=== PATIENT | male | born 1955 | race Caucasian/White ===

== ENCOUNTER 2024-02-02 07:50 | Outpatient (OUT) | payer MEDICARE, SELFPAY ==
--- NOTE | 2024-02-02 07:56 | ECG_ITS ---
[facility] Test Date: 2024-02-02 Pat Name: Valentin Wong Department: Room: - Gender: Male [employer]: : 1955 Requested By: JANET MUNIZ Order Number: [id number] Reading MD: TRESSA DURANT Measurements Intervals [place] Rate: 66 P: 51 CO: 141 QRS: 0 QRSD: 100 T: -11 QT: 401 QTc: 421 Interpretive Statements SINUS RHYTHM WITH OCCASIONAL VENTRICULAR PREMATURE COMPLEXES Chronic inferolateral ST/T wave changes Compared to ECG 03/21/2023 04:25:02 Ventricular premature complex(es) now present T-wave abnormality unchanged Electronically Signed On 02-02-2024 21:44:25 EDT by TRESSA DURANT
[2024-02-02 08:50] LABS: Basophils Absolute Auto 0.1 10^3/uL (0.0-0.1); Eosinophils Absolute Auto 0.1 10^3/uL (0.0-0.7); Hematocrit 43.7 % (42.0-54.0); Hemoglobin 14.9 g/dL (14.0-18.0); Immature Granulocytes Abs Auto 0.04 10^3/uL (0.00-0.03); Immature Granulocytes Pct Auto 0.8 % (0.0-0.5); Lymphocytes Absolute Auto 0.7 10^3/uL (1.2-3.8); Lymphocytes Percent Auto 14.1 % (20.5-60.0); Mean Corpuscular HGB Conc 34.1 g/dL (29.9-35.2); Mean Corpuscular Hemoglobin 30.5 pg (25.9-34.0); Mean Corpuscular Volume 89.5 fL (80.0-94.0); Mean Platelet Volume 10.2 fL (9.5-13.5); Monocytes Absolute Auto 0.8 10^3/uL (0.3-0.8); Monocytes Percent Auto 14.9 % (1.7-12.0); Neutrophils Absolute Auto 3.5 10^3/uL (1.4-6.5); Neutrophils Percent Auto 68.2 % (43.0-75.0); Platelet Count 175 10^3/uL (150-450); Red Blood Count 4.88 10^6/uL (4.70-6.10); Red Cell Distribution Width 14.1 % (11.0-15.0); White Blood Count 5.2 10^3/uL (4.0-11.0)
[2024-02-02 09:19] LABS: INR 0.98; Prothrombin Time 10.4 sec (9.0-11.6)
[2024-02-02 10:23] LABS: Anion Gap 13.9; Calcium 9.2 mg/dL (8.5-10.1); Chloride 103 mmol/L (98-107); Estimated GFR (African America >60 (>=60); Estimated GFR (Non-African Ame >60 (>=60); Glucose 122 mg/dL (74-106); Potassium 3.9 mmol/L (3.5-5.1); Sodium 137 mmol/L (136-145)
== END 2024-02-02 07:51 | disposition home or self-care (01) ==
LOC: PST 07:51
PROVIDERS: PCP Family Medicine; Visit Provider Urology
DX: Z01.810 Encounter for preprocedural cardiovascular examination (principal); Z01.812 Encounter for preprocedural laboratory examination; N20.0 Calculus of kidney
CPT/HCPCS: 80048; 85025; 85610; 85730; 93005

== ENCOUNTER 2024-02-16 06:53 | Day surgery (SDC) | payer MEDICARE, SELFPAY ==
[2024-02-02 08:12] VITALS: BP 132/82; PULSE 73; RESP 18; TEMP 36.4; O2SAT 96; BMI 32.1
[2024-02-16] VITALS (11 sets, daily range): BP systolic 100–157; BP diastolic 55–83; PULSE 65–79; RESP 10–19; TEMP 36–36.2; O2SAT 93–99; BMI 31.9
--- OUTSIDE RECORDS SUMMARY | 2024-02-16 06:58 | XMS_ITS | CCD ---
Author Organization [facility] Care Team Providers Care Sales And Marketing Director Name Role Phone REBEKAH REED Unavailable Unavailable REBEKAH REED Unavailable Unavailable Herman, DO Caicedo Primary Care Provider [phone] MD Adam Davis Attending Provider Aquilesng, DO Caicedo Primary Care Provider WILLOW Sanchez Attending Provider KARIN Ibrahim Attending Provider Herman, DO Caicedo Primary Care Provider WILLOW Sanchez Attending Provider Herman, DO Caicedo Primary Care Provider [phone] WILLOW Sanchez Attending Provider PAY ., DR FERNANDEZ Admitting Unavailable BALJINDER, DR PRIMO De Oliveira Consulting Unavailable HERMAN, DR SASCHA Candelaria Primary Care Unavailable PAY ., DR FERNANDEZ Attending Unavailable MAGDY .MATT Consulting UnavailSHAIKH Claritza Reveles Attending Unavailable SHAIKH Claritza MULTANI Admitting Unavailable BALJINDER, DR PRIMO De Oliveira Consulting Unavailable HERMAN, DR SASCHA Candelaria Primary Care Unavailable ROBERTA WOOD Consulting Unavailable JOSÉ MIGUEL NOVOA Consulting Unavailable SHAIKH Claritza MULTANI Consulting Unavailable GAVIN MINER Consulting Unavailable Sascha Sutton Unavailable Unavailable Unavailable DO Melanie Trujillo Attending Provider Dr. Alfonso Trujillo Attending Unava ilable Herman, Dr. Sascha Espinoza Primary Care Unava ildonaldo Trujillo, Dr. Alfonso Parham Attending Nikkiva miguel Trujillo, Dr. Alfonso Parham Referring Unava ildonaldo Sutton, Dr. Sascha Espinoza Primary Care Unava ilable Furlong, DO Sascha Primary Care Provider Furlong, DO Sascha Attending Provider MD Edenilson Reinoso Jr Emergency Provider DO Romel Orta Emergency Provider Unavai MD Zac Aguirre Attending Provider [phone] WILLOW Sanchez Attending Provider MD Zac Muniz Referring Provider SASCHA SUTTON Primary Care Physician Furlong, DO Sascha Primary Care Provider MD Zac Muniz Attending Provider Furlong, DO Sascha Primary Care Provider MD Zac Muniz Attending Provider Furlong, DO Sascha Primary Care Provider MD Romel Davis Attending Provider Furlong, DO Sascha Primary Care Provider MD Zac Muniz Attending Provider MD Romel Davis Attending Provider Furlong, DO Sascha Primary Care Provider MD Romel Davis Attending Provider MD Zac Muniz Attending Provider [phone] Furgeneng Sascha FERRELL Primary Care Provider Furlong, DO Sascha Primary Care Provider MD Romel Davis Attending Provider Furlong, DO Sascha Attending Provider SASCHA SUTTON Attending Unavailable HERMAN, SASCHA G Referring Unavailable FURLONG, SASCHA G Primary Care Unavailable FURLONG, SASCHA G Referring Unavailable FURLONG, SASCHA G Primary Care Unavailable Unavailable Primary Care Provider UnavailZAIRA Phillips Attending Unavailable Furlong Sascha ONEAL Primary Care Provider WILLOW Hernandez Attending Provider Мария Hernandez Unavailable MD Edenilson Reinoso Jr Emergency Provider Zac Muniz Attending Unavailable Furlong, Sascha Primary Care Unavailable Muniz, Zac Admitting Unavailable Davis, Romel Admitting Unavailable Davis, Romel Attending Unavailable Furlong, Sascha Primary Care Unavailable Furlong, Sascha Primary Care Unavailable Ryan, Romel Attending Unavailable Romel Davis Admitting Unavailable Edenilsno Reinoso Jr Admitting Unavailable Edenilson Reinoso Jr Attending Unavailable Furlong, Sascha Primary Care Unavailable Мария Hernandez Attending Unavailable Furlong, Sascha Primary Care Unavailable Мария Hernandez Admitting Unavailable Muniz, Zac Attending Unavailable Muniz, Zac Admitting Unavailable Furlong, Sascha Primary Care Unavailable Furlong, Sascha Primary Care Unavailable Muniz, Zac Attending Unavailable Muniz, Zac Admitting Unavailable Obermeyer, Christine L Admitting Unavailable Obermeyer, Christine L Attending Unavailable Muniz, Zac Referring Unavailable Furlong, Sascha Primary Care Unavailable Furlong, Sascha Admitting Unavailable Furlong, Sascha Attending Unavailable Furlong, Sascha Primary Care Unavailable Muniz, Zac Attending Unavailable Furlong, Sascha Primary Care Unavailable Muniz, Zac Admitting Unavailable Obermeyer, Christine L Attending Unavailable Obermeyer, Christine L Admitting Unavailable Furlong, Sascha Primary Care Unavailable Furlong, Sascha Admitting Unavailable Furlong, Sascha Attending Unavailable Furlong, Sascha Primary Care Unavailable Muniz, Zac Attending Unavailable Furlong, Sascha Primary Care Unavailable Muniz, Zac Admitting Unavailable Muniz, Zac Attending Unavailable Furlong, Sascha Primary Care Unavailable Muniz, Zac Admitting Unavailable Melanie Trujillo Admitting Unavailable Melanie Trujillo Attending Unavailable Furlong, Sascha Primary Care Unavailable Davis, Romel Attending Unavailable DavisRomel Admitting Unavailable Furlong, Sascha Primary Care Unavailable Furlong, Sascha Attending Unavailable Furlong, Sascha Admitting Unavailable Furlong, Sascha Primary Care Unavailable Мария Hernandez Admitting Unavailable Мария Hernandez Attending Unavailable Furlong, Sascha Primary Care Unavailable Furlong, Sascha Primary Care Unavailable Melanie Trujillo Attending Unavailable Melanie Trujillo Admitting Unavailable Edenilson Reinoso Jr Attending Unavailable Furlong, Sascha Primary Care Unavailable Edenilson Reinoso Jr Admitting Unavailable Romel Orta Attending Unavailable Furlong, Sascha Primary Care Unavailable Romel Orta Admitting Unavailable FURLONG, SASCHA G Referring Unavailable FURLONG, SASCHA G Primary Care Unavailable FURLONG, SASCHA G Referring Unavailable FURLONG, SASCHA G Primary Care Unavailable FURLONG, SASCHA G Referring Unavailable FURLONG, SASCHA G Primary Care Unavailable FLAVIO, Zac De Oliveira Attending Unavailable MUNIZ, Zac R Admitting Unavailable MUNIZ, Zac R Attending Unavailable MUNIZ, Zac R Attending Unavailable MUNIZ, Zac R Attending Unavailable MUNIZ, Zac R Attending Unavailable MUNIZ, Zac R Attending Unavailable MUNIZ, Zac R Attending Unavailable MUNIZ, Zac R Attending Unavailable Furlong, DO Sascha Primary Care Provider [phone] MD Romel Davis Attending Provider Herman, DO Caicedo Attending Provider WILLOW Hernandez Attending Provider MD Edenilson Reinoso Jr Emergency Provider MD Zac Muniz Attending Provider [phone] Allergies Allergy Classification Reported Allergen(s) Allergy Type Date of Onset Reaction(s) Facility (20 sources) cephalexin; Translations: [CEPHALEXIN] Drug Allergy 04-25-20 18 Unknown (qualifier value) [facility] Repository (20 sources) oxyCODONE; Translations: [OXYCODONE] Drug Allergy 04-25-20 18 Hallucinations (finding), Hallucinations [facility] Repository (20 sources) Sulfonamides (Antibiotic); Translations: [SULFA (SULFONAMIDE ANTIBIOTICS)] Propensity to adverse reactions to drug (disorder) 05-20-20 14 Other (See Comments) [facility] [place] [facility] (2 sources) ASPIRIN, BUFFERED; Translations: [ASPIRIN, BUFFERED] Propensity to adverse reactions to drug (disorder) 04-25-20 18 [facility] Other [place] Repository (20 sources) Calcium Carbonate; Translations: [calcium carbonate] Drug Allergy 07-19-20 19 GI intolerance [facility] (20 sources) Cephalosporins (Antibiotic); Translations: [Cephalosporins] Allergy to substance 05-20-20 14 Other (See Comments) [facility] (20 sources) Magnesium; Translations: [magnesium] Drug Allergy 07-19-20 19 GI intolerance [facility] (1 source) Sulfonamides (Antibiotic) Drug allergy (disorder) [facility] Repository (4 sources) Sulfamethoxazole; Translations: [sulfa] Drug Allergy Unknown [place] [id number] DO Work Phone: (6 sources) Sulfonamides (Antibiotic); Translations: [sulfa drugs] Drug allergy Unknown (qualifier value) [facility] (4 sources) Aspirin,Buffd-Willow cium Carb-Mag; Translations: [ASPIRIN,BUFFD-CA LCIUM CARB-MAG] Propensity to adverse reactions to drug 09-29-20 22 Vomiting [facility] [employer] (1 source) Aspirin Drug Allergy 10-13-20 15 [facility] [employer] (1 source) Sulfonamides (Antibiotic) Drug Allergy 05-20-20 14 Rash [facility] [employer] (1 source) Aspirin Drug Allergy Unknown [employer] Other (1 source) Sulfacetamide in [place] Drug allergy Unknown [facility] [employer] Other Medications Current Medications Medication Drug Class(es) Dates Sig (Normalized) Sig (Original) acetaminophen 500 mg oral tablet (20 sources) Start: 05-09-2023 take 1 mg by mouth every six hours acetaminophen 500 mg Tab mg tab(s), Oral, q6hr, Refills(s) 0 Start Date: 05/09/23 Status: Ordered Start: 05-09-2023 take 2 tablets by mo ut three times daily as needed for pain acetaminophen (TYLENOL EXTRA STRENGTH) 500 mg tablet Take 2 tablets (1,000 mg total) by mouth 3 (three) times a day as needed for pain. 0 05/09/2023 Active Start: 03-31-2023 take 1000 mg by mout h once daily Acetaminophen Active 1000 MG PO Daily March 31, 2023 12:00am Start: 11-05-2018 End: 07-24-2019 take 500 mg by mouth three times daily Acetaminophen Discontinued 500 MG PO Three times daily November 05, 2018 1:00am July 24, 2019 3:26pm take 1 tablet by christopher th every eight hours Acetaminophen Extra Strength 500 MG 1 tablet as needed Orally 3 times a day Active Tylenol 500 MG C APS 2 caps 2-3 times daily Quantity: 0 Refills: 0 Ordered: 30-Mar-2023 DO Active acetaminophen 325 mg / HYDROcodone bitartrate 5 mg oral tablet (20 sources) Opioid Agonist Start: 05-03-2023 End: 01-03-2024 take 1 tablet by mouth every six hours Hydrocodone-Acetaminophen Active 1 - 2 TAB PO Q6H 15 January 03, 2024 Start: 05-12-2019 End: 07-19-2019 take 1 tablet by mouth once daily at bedtime Hydrocodone-Acetaminophen (Marathon) 5-325 mg tablet Discontinued 1 TAB PO Daily at bedtime 14 May 12, 2019 July 19, 2019 10:35am Start: 04-25-2018 End: 11-05-2018 take 1 tablet by mouth every four to six hours Hydrocodone-Acetaminophen (Marathon) 5-325 mg tablet Discontinued 1 - 2 TAB PO EVERY 4-6 HOURS May 16, 2018 November 05, 2018 1:25pm aspirin 81 mg oral capsule (20 sources) Platelet Aggregation Inhibitor, Nonsteroidal Anti-inflammatory Drug Start: 09-19-2023 take 1 mg by mouth every twenty-four hours aspirin 81 mg oral capsule mg cap(s), Oral, q24hr, Refills(s) 0 Start Date: 09/19/23 Status: Ordered Start: 05-09-2023 take 1 mg by mouth e very four hours aspirin 325 mg oral capsule mg cap(s), Oral, q4hr, Refills(s) 0 Start Date: 05/09/23 Status: Ordered Start: 07-19-2019 End: 04-04-2023 take 325 mg by mouth once daily in the morning Aspirin Discontinued 325 MG PO Every morning July 19, 2019 12:00am April 04, 2023 1:11pm Start: 11-05-2018 End: 11-05-2018 take 1 tablet by mouth once daily Aspirin (Aspir-81) 81 mg Tablet,Delayed Release (Dr/Ec) Discontinued 325 MG PO Daily November 05, 2018 1:00am November 05, 2018 1:25pm B Complex Vitamins (vitamin B complex) tablet (1 source) B Complex Vitami ns (vitamin B complex) tablet as directed Orally 0 Active budesonide 0.032 mg/actuat metered dose nasal spray (2 sources) Corticosteroid budesonide (Rhin ocort AQ) 32 MCG/ACT nasal spray 62,500 sprays 0 Active budesonide (GUSTAVO KEYLA AQUA) 32 mcg/actuation nasal spray 62,500 sprays. 0 Active carboxymethylcellulose 0.01 mg/mg ophthalmic gel (10 sources) Start: 03-31-2023 apply 1 drop(s) into the eye(s) once daily Carboxymethylcellulose Sodium (Refresh Liquigel) 1 % Drops, Liquid Gel Active 1 DROPS EYE-BOTH Daily March 31, 2023 12:00am Carboxymethylcellulose Sodium (Refresh Liquigel) 1 % Drops, Liquid Gel (7 sources) Start: 03-31-2023 apply 1 drop(s) into the eye(s) once daily Carboxymethylcellulose Sodium (Refresh Liquigel) 1 % Drops, Liquid Gel Active 1 DROPS EYE-BOTH Daily March 31, 2023 12:00am colchicine 0.6 mg oral tablet (5 sources) Start: 01-18-2024 take 1 mg by mouth once daily colchicine 0.6 mg Tab mg tab(s), Oral, Daily Start Date: 01/18/24 Status: Ordered Start: 12-19-2023 colchicine 0.6 MG tablet Start: 09-30-2023 take 1 capsule by [facility] in the morning colchicine (MITIGARE) 0.6 mg capsule Take 1 capsule (0.6 mg total) by mouth in the morning. 0 09/30/2023 Active Colchicine 0.6 M G 5 mL Orally Active fexofenadine (5 sources) Histamine-1 Receptor Antagonist Start: 05-09-2023 Seema D OTC 24HR Oral, Daily, Refill(s) 0 Start Date: 05/09/23 Status: Ordered fexofenadine / Pseudoephedrine (17 sources) alpha-Adrenergic Agonist, Histamine-1 Receptor Antagonist Start: 03-31-2023 take 1 tablet by mouth once daily, then take 1 tablet by mouth every twenty-four hours Fexofenadine-Ps eudoephedrine (Seema-D 24 Hour) 180-240 mg Tablet Extended Release 24 Hr Active 1 TAB PO Daily March 30, 2023 11:00pm Start: 03-31-2023 take 1 tablet by christopher th once daily, then take 1 tablet by mouth every twenty-four hours Fexofenadine-Pseudoephedrine (Seema-D 24 Hour) 180-240 mg Tablet Extended Release 24 Hr Active 1 TAB PO Daily March 31, 2023 12:00am folic acid 1 mg oral tablet (20 sources) Start: 05-09-2023 take 1 tablet by mouth once daily folic acid 1 mg Tab mg tab(s), Oral, Daily, Refills(s) 0 Start Date: 05/09/23 Status: Ordered Start: 04-25-2018 take 1-2 mg by mouth twice britany ly Folic Acid Active 1 - 2 MG PO Twice daily April 25, 2018 12:00am Start: 04-25-2018 take 1-2 mg by mouth once baldomero y Folic Acid Active 1 - 2 MG PO Daily April 25, 2018 12:00am 12 hr guaiFENesin 600 mg / pseudoephedrine hydrochloride 60 mg extended release oral tablet (1 source) alpha-Adrenergic Agonist pseudoephedrine-guai FENesin (MUCINEX D) 60-600 mg per 12 hr tablet hydroCHLOROthiazide 12.5 mg / lisinopril 20 mg oral tablet (20 sources) Thiazide Diuretic, Angiotensin Converting Enzyme Inhibitor Start : 09-19 hydrochlorothiazide-lisinopr il 12.5 mg-20 mg Tab Refill(s) 0 Start Date: 09/19/23 Status: Ordered Start: 05-12-2019 take 1 tablet by christopher th once daily in the morning Lisinopril-Hydrochlorothiazide Active 1 TAB PO Every morning May 12, 2019 12:00am hydroxychloroquine sulfate 200 mg oral tablet (20 sources) Antimalarial, Antirheumatic Agent Start: 05-09-2023 take 1 mg by mouth once daily hydroxychloroquine 200 mg Tab mg tab(s), Oral, Daily, Refills(s) 0 Start Date: 05/09/23 Status: Ordered Start: 04-25-2018 take 200 mg by mouth twice daily Hydroxychloroquine Active 200 MG PO Twice daily April 25, 2018 12:00am leflunomide 10 mg oral tablet (20 sources) Antirheumatic Agent Start: 04-25-2018 take 10 mg by mouth once daily in the morning Leflunomide Active 10 MG PO Every morning April 25, 2018 12:00am leucovorin 5 mg oral tablet (20 sources) Folate Analog Start: 04-25-2018 take 5 mg by mouth every week Leucovorin Calcium Active 5 MG PO every week April 25, 2018 12:00am taken on sundays levoFLOXacin 500 mg oral tablet (4 sources) Quinolone Antimicrobial Start: 01-03-2024 take 500 mg by mouth once daily Levofloxacin Active 500 MG PO Daily 03 25January 03, 2024 1:00am lisinopril 20 mg oral tablet (20 sources) Angiotensin Converting Enzyme Inhibitor Start: 05-09-2023 take 1 mg by mouth once daily lisinopril 20 mg Tab mg tab(s), Oral, Daily, Refills(s) 0 Start Date: 05/09/23 Status: Ordered Start: 04-25-2018 End: 05-12-2019 take 20 mg by mouth once daily Lisinopril Discontinued 20 MG PO Daily April 25, 2018 12:00am May 12, 2019 2:29am loratadine 10 mg oral tablet (1 source) Start: 03-28-2023 take 1 tablet by mouth in the morning loratadine (CLARITIN) 10 mg tablet Indications: Allergic rhinitis Take 1 tablet (10 mg total) by mouth in the morning. 30 tablet 0 03/28/2023 Active methotrexate 1000 mg injection (20 sources) Folate Analog Metabolic Inhibitor Start: 05-09-2023 inject 1 mg intravenously once methotrexate 1 g injection mg/m2, IV, Once, Refills(s) 0 Start Date: 05/09/23 Status: Ordered Start: 05-09-2023 inject 1 mg intravenously once methotrexate 1 g injection mg/m2, IV, Once, Refills(s) 0 Start Date: 05/09/23 Status: Ordered Start: 11-05-2018 inject 25 mg by subc utaneous injection every week Methotrexate Sodium Active 25 MG SUBCUT every week November 05, 2018 1:00am taken on saturdays Methotrexate 2.5 MG 1 needle Orally once a week *please review for potential _update for e-prescription and drug interaction check* Active methotrexate, PF , 25 mg/mL chemo syringe methotrexate sodium (PF) 25 mg/mL injection solution 0 Active Methotrexate Sod ium 1 GM Injection Solution Reconstituted USE DIRECTED. Quantity: 0 Refills: 0 Ordered: 30-Mar-2023 DO Active methylPREDNISolone 4 mg oral tablet (20 sources) Corticosteroid Start: 05-09-2023 Medrol 4 mg Ta b Refills(s) 0 Start Date: 05/09/23 Status: Ordered Start: 11-05-2018 End: 07-24-2019 take 1 tablet by mouth once Methylprednisolone (Medrol (Nicolas)) 4 mg tablets,dose pack Discontinued 1 dose pk PO per package directions July 19, 2019 10:35am July 24, 2019 3:25pm Medrol (Nicolas) 4 M G TABS USE DIRECTED. Quantity: 0 Refills: 0 Ordered: 30-Mar-2023 DO Active montelukast 10 mg oral tablet (20 sources) Leukotriene Receptor Antagonist Start: 04-25-2018 take 10 mg by mouth once daily in the evening Montelukast Active 10 MG PO Every evening April 25, 2018 12:00am nabumetone 750 mg oral tablet (20 sources) Nonsteroidal Anti-inflammatory Drug Start: 05-09-2023 take 1 mg by mouth once daily nabumetone 750 mg Tab mg tab(s), Oral, Daily, Refills(s) 0 Start Date: 05/09/23 Status: Ordered Start: 04-25-2018 take 750 mg by mouth twice britany ly Nabumetone Active 750 MG PO Twice daily April 25, 2018 12:00am take 1 tablet by christopher th every twelve hours Nabumetone 750 MG Oral Tablet TAKE 1 TABLET EVERY 12 HOURS. Quantity: 0 Refills: 0 Ordered: 30-Mar-2023 DO Active nitroglycerin 0.4 mg sublingual tablet (20 sources) Nitrate Vasodilator Start: 03-31-2023 take 0.4 mg under the tongue once daily Nitroglycerin Active 0.4 MG SUBLINGUAL Daily March 31, 2023 12:00am Start: 03-30-2023 Nitroglycerin 0.4 MG Sublingual Tablet Sublingual PLACE 1 TABLET UNDER THE TONGUE EVERY 5 MINUTES FOR UP TO 3 DOSES NEEDED FOR CHEST PAIN.CALL 911 IF PAIN PERSISTS. Quantity: 1 Refills: 0 Ordered: 30-Mar-2023 Alfonso Trujillo DO Start : 30-Mar-2023 Active new start omeprazole 40 mg delayed release oral capsule (20 sources) Proton Pump Inhibitor Start: 10-23-2022 take 1 mg by mouth once daily omeprazole 40 mg Cap-DR mg cap(s), Oral, Daily, Refills(s) 0 Start Date: 05/09/23 Status: Ordered Start: 04-25-2018 take 40 mg by mouth once daily in the morning Omeprazole Active 40 MG PO Every morning April 25, 2018 12:00am Start: 04-25-2018 take 20 mg by mouth twice baldomero y Omeprazole Active 20 MG PO Twice daily April 25, 2018 12:00am take 1 capsule by mo uth every twelve hours Omeprazole 40 MG 1 capsule Orally bid Active ondansetron 4 mg disintegrating oral tablet (20 sources) Serotonin-3 Receptor Antagonist Start: 05-03-2023 End: 01-03-2024 take 4 mg by mouth every eight hours Ondansetron Active 4 MG PO Q8H January 03, 2024 4:25am Start: 04-25-2018 End: 11-05-2018 Ondansetron (Zofran Odt) 4 m g Tablet,Disintegrating Discontinued 4 MG PO EVERY 8-12 HOURS April 25, 2018 12:00am November 05, 2018 1:20pm potassium bicarbonate 25 meq effervescent oral tablet (2 sources) Start: 12-14-2023 take 1 tablet by mouth in the morning KLOR-CON/EF 25 mEq disintegrating tablet Take 1 tablet (25 mEq total) by mouth in the morning and 1 tablet (25 mEq total) before bedtime. 0 12/14/2023 Active Potassium Chloride (1 source) Klor-Con 10 Acti ve prednisoLONE (20 sources) Corticosteroid Start: 05-09-2023 prednisoLONE O ral, Daily, Refills(s) 0 Start Date: 05/09/23 Status: Ordered Start: 11-05-2018 End: 07-24-2019 Prednisolone Acetate Discont inued 1 DROPS OPHTHALMIC As Directed November 05, 2018 1:00am July 24, 2019 3:25pm taper as directed/ Right Eye take 2 drop(s) into the eye(s) four times daily as needed Pred Forte 1 % 2 drops into affected eye Ophthalmic Four times a day PRN Active prednisoLONE Raúl yañez P-F 1 % Ophthalmic Suspension as directed Quantity: 0 Refills: 0 Ordered: 30-Mar-2023 DO Active Refresh Dry Eye Therapy (5 sources) Start: 05-09-2023 Refresh Dry Ey e Therapy Eye-Both, QID, Refill(s) 0 Start Date: 05/09/23 Status: Ordered simvastatin 20 mg oral tablet (20 sources) HMG-CoA Reductase Inhibitor Start: 07-19-2019 take 20 mg by mouth once daily in the evening Simvastatin Active 20 MG PO Every evening July 19, 2019 12:00am Start: 04-25-2018 End: 07-19-2019 take 10 mg by mouth once daily Simvastatin Discontinue d 10 MG PO Daily April 25, 2018 12:00am July 19, 2019 10:31am tamsulosin hydrochloride 0.4 mg oral capsule (20 sources) alpha-Adrenergic Carlos Start: 01-03-2024 End: 02-02-2024 take 1 capsule by mouth twice daily Flomax 0.4 mg Cap 0.4 mg = 1 cap(s), Oral, BID, X 30 day(s), # 60 cap(s), Refills(s) 0, Pharmacy: [facility]/pharmacy #[id number], 173, cm, 09/19/23 9:41:00 EDT, Height/Length Dosing, 97.5, kg, 09/19/23 9:41:00 EDT, Weight Dosing Start Date: 01/03/24 Stop Date: 02/02/24 Status: Ordered Start: 05-09-2023 End: 06-08-2023 take 1 capsule by mouth twice daily Flomax 0.4 mg Cap 0.4 mg = 1 cap(s), Oral, BID, X 30 day(s), # 60 cap(s), Refills(s) 0, Pharmacy: [facility] [id number], 173, cm, 05/09/23 16:02:00 EDT, Height/Length Dosing, 97.5, kg, 05/09/23 16:02:00 EDT, Weight Dosing Start Date: 05/09/23 Stop Date: 06/08/23 Status: Ordered Start: 05-03-2023 End: 01-03-2024 Tamsulosin (Flomax) 0.4 mg c apsule Active 0.4 MG PO Daily January 03, 2024 4:25am administer 30 minutes after same meal each day until stone passes Start: 04-25-2018 End: 11-05-2018 take 1 capsule by mouth once daily Tamsulosin (Flomax) 0.4 mg Capsule,Extended Release 24hr Discontinued 0.4 MG PO Daily April 25, 2018 12:00am November 05, 2018 1:21pm traMADol hydrochloride 50 mg oral tablet (20 sources) Opioid Agonist Start: 05-09-2023 take 1 mg by mouth every six hours traMADOL 50 mg Tab mg tab(s), Oral, q6hr, Refills(s) 0 Start Date: 05/09/23 Status: Ordered Start: 11-05-2018 End: 07-26-2019 take 100 mg by mouth every eight hours Tramadol Active 100 MG PO Q8H 0 July 26, 2019 7:13am take 1 tablet by christopher th every twelve hours as needed traMADol HCl - 50 MG Oral Tablet TAKE 1 TABLET EVERY 12 HOURS NEEDED. Quantity: 0 Refills: 0 Ordered: 30-Mar-2023 DO Active triamcinolone acetonide 0.055 mg/actuat metered dose nasal spray (19 sources) Corticosteroid Start: 03-31-2023 Triamcinolone Acetonide (Nasal Allergy) 55 mcg Aerosol,[place] Active 1 SPRAY INTRANASAL Daily March 31, 2023 12:00am Start: 03-31-2018 Kenalog -40 mg March, 10 mg Completed/Discontinued Medications Medication Drug Class(es) Dates Sig (Normalized) Sig (Original) chlorhexidine gluconate 40 mg/ml medicated liquid soap (1 source) Hibiclens 4 % Externally Not-Taking/PRN cyclobenzaprine hydrochloride 10 mg oral tablet (20 sources) Muscle Relaxant Start: 05-12-2019 End: 07-26-2019 take 10 mg by mouth three times daily Cyclobenzaprine Discontinued 10 MG PO Three times daily May 12, 2019 12:00am July 26, 2019 8:09am diazePAM 5 mg oral tablet (20 sources) Benzodiazepine Start: 07-26-2019 End: 03-31-2023 take 5 mg by mouth four times daily Diazepam Discontinued 5 MG PO Four times daily 30 10 July 26, 2019 12:00am March 31, 2023 8:41am doxycycline hyclate 100 mg oral tablet (20 sources) Tetracycline-class Drug Start: 05-16-2018 End: 11-05-2018 take 100 mg by mouth twice daily Doxycycline Hyclate Discontinued 100 MG PO Twice daily 10 July 10, 2018 12:00am November 05, 2018 1:17pm Effervescent Potassium 25 mEq oral tablet (3 sources) Start: 09-19-2023 End: 09-13-2024 take 1 tablet by mouth twice daily Effervescent Potassium 25 mEq oral tablet 25 mEq = 1 tab(s), Oral, BID, X 90 day(s), # 180 tab(s), Refills(s) 3, Pharmacy: [facility]/pharmacy #[id number], 173, cm, 09/19/23 9:41:00 EDT, Height/Length Dosing, 97.5, kg, 09/19/23 9:41:00 EDT, Weight Dosing Start Date: 09/19/23 Stop Date: 09/13/24 Status: Ordered Fluocinolone Cream & Emollient 0.025 % (1 source) Fluocinolone Cre am & Emollient 0.025 % Externally *please review for potential _update for e-prescription and drug interaction check* Not-Taking/PRN fluticasone propionate 0.093 mg/actuat metered dose nasal spray (20 sources) Corticosteroid Start: 07-19-2019 End: 03-31-2023 take 1 spray(s) nasal route once daily Fluticasone Propionate Discontinued 1 SPRAY INTRANASAL Daily July 19, 2019 12:00am March 31, 2023 8:40am Left nostril only Hexachlorophene (1 source) Phisohex *please review for potential _update for e-prescription and drug interaction check* Not-Taking/PRN HYDROmorphone hydrochloride 4 mg oral tablet (20 sources) Opioid Agonist Start: 04-29-2018 End: 11-05-2018 take 1 tablet by mouth every six hours Hydromorphone (Dilaudid) 4 mg tablet Discontinued 4 MG PO Q6H April 29, 2018 November 05, 2018 1:25pm ketorolac tromethamine 10 mg oral tablet (5 sources) Nonsteroidal Anti-inflammatory Drug, Cyclooxygenase Inhibitor Start: 05-09-2023 take 1 tablet by mouth twice daily as needed for pain ketorolac 10 mg Tab 10 mg = 1 tab(s), Oral, BID, PRN for pain, Take one tab by mouth up to twice daily for pain., # 30 tab(s), Refills(s) 0, Pharmacy: [facility] [id number], 173, cm, 05/09/23 16:02:00 EDT, Height/Length Dosing, 97.5, kg, 05/09/23 16:02:00 EDT, Weight Dosing Start Date: 05/09/23 Status: Ordered Vitamin B Complex (1 source) Vitamin B Comple x - as directed Orally Not-Taking/PRN Vitamin D 1000 UNIT (1 source) take 1 tablet by mouth once daily as needed Vitamin D 1000 UNIT 1 tablet Orally Once a day *please review for potential _update for e-prescription and drug interaction check* Not-Taking/PRN vitamin e d-alpha 400 unt oral capsule (1 source) take 1 capsule by mouth every twenty-four hours Vitamin E 400 UNIT 1 capsule Orally Once a day for 30 day(s) Not-Taking/PRN Problems Active Problems Problem Classification Problem Date Documented Da te Episodic/Chronic Abdominal hernia (1 source) Hiatal hernia; Translations: [Diaphragmatic hernia without obstruction or gangrene] Episodic Abdominal pain (1 source) Unspecified abdominal pain; Translations: [Unspecified abdominal pain] Onset: 4 Episodic Acquired foot deformities (1 source) Pronation deformity of the foot; Translations: [Other acquired deformities of right foot] 12-28-2023 Episodic Acute and unspecified renal failure (15 sources) Injury of kidney; Translations: [Acute kidney failure, unspecified] 05-03-2023 Episodic Calculus of urinary tract (20 sources) Calculus of ureter; Translations: [Calculus of ureter] Onset: 8 05-03-2023 Episodic Coagulation and hemorrhagic disorders (6 sources) Lupus anticoagulant disorder; Translations: [Primary hypercoagulable state] Onset: 2 12-14-2023 Chronic Coronary atherosclerosis and other heart disease (1 source) Atherosclerotic heart disease of [place] coronary artery without angina pectoris; Translations: [ASHD MENOMINEE CA W/O ANGINA PECTORIS] Onset: 3 Chronic Diseases of white blood cells (4 sources) Leukocytosis; Translations: [Elevated white blood cell count, unspecified] 01-03-2024 Chronic Disorders of lipid metabolism (8 sources) Hyperlipidemia, unspecified; Translations: [Hyperlipidemia] Onset: 3 12-14-2023 Chronic Esophageal disorders (1 source) Diffuse spasm of esophagus; Translations: [Dyskinesia of esophagus] Chronic Esophageal disorders (1 source) Esophagitis; Translations: [Esophagitis, unspecified] Episodic Essential hypertension (8 sources) Essential (primary) hypertension; Translations: [Hypertensive disorder] Onset: 7 12-14-2023 Chronic Genitourinary symptoms and ill-defined conditions (8 sources) Blood in urine; Translations: [Gross hematuria] Onset: 3 Episodic Headache; including migraine (1 source) Cluster headache; Translations: [Cluster headache syndrome, unspecified, not intractable] Onset: 2 09-29-2022 Chronic Osteoarthritis (3 sources) Osteoarthritis of knee; Translations: [Osteoarthritis of knee, unspecified] Onset: 2 09-29-2022 Chronic Other acquired deformities (20 sources) Lumbar spondylolisthesis; Translations: [Spondylolisthesis, lumbar region] 07-25-2019 Episodic Other aftercare (1 source) Other long term care pharmacist (current) drug therapy; Translations: [OTH HALFWAY CURRENT DRUG THERAPY] Onset: 3 Episodic Other aftercare (1 source) parts counterman (current) use of aspirin; Translations: [HALFWAY CURRENT USE OF ASPIRIN] Onset: 3 Episodic Other aftercare (1 source) High risk drug monitoring status; Translations: [parts counterman (current) use of opiate analgesic] Episodic Other congenital anomalies (1 source) Cleft palate; Translations: [Cleft palate, unspecified] Onset: 2 09-29-2022 Chronic Other congenital anomalies (1 source) Cleft palate with cleft lip; Translations: [Unspecified cleft palate with unilateral cleft lip] Chronic Other diseases of kidney and ureters (1 source) Hydronephrosis with renal and ureteral calculous obstruction; Translations: [Hydronephrosis with renal and ureteral calculous obstruction] Onset: 8 Episodic Other diseases of kidney and ureters (3 sources) Urinary tract obstruction; Translations: [Hydronephrosis with renal and ureteral calculous obstruction] Onset: 3 Episodic Other diseases of kidney and ureters (6 sources) Hydronephrosis; Translations: [Unspecified hydronephrosis] Onset: 4 05-09-2023 Episodic Other ear and sense organ disorders (1 source) Hearing loss; Translations: [Unspecified hearing loss, unspecified ear] Onset: 2 09-29-2022 Chronic Other ear and sense organ disorders (1 source) Decreased hearing ; Translations: [Unspecified hearing loss, bilateral] Chronic Other gastrointestinal disorders (20 sources) Dysphagia; Translations: [Dysphagia, unspecified] 04-26-2018 Episodic Other lower respiratory disease (1 source) Other forms of dyspnea; Translations: [OTHER FORMS OF DYSPNEA] Onset: 3 Episodic Other lower respiratory disease (3 sources) Dyspnea on exertion; Translations: [Shortness of breath] Episodic Other nervous system disorders (20 sources) Piriformis syndrome; Translations: [Lesion of sciatic nerve, unspecified lower limb] 05-12-2019 Chronic Other nervous system disorders (2 sources) Lesion of ulnar nerve, right upper limb; Translations: [Lesion of ulnar nerve] 12-14-2023 Chronic Other nervous system disorders (1 source) Carpal tunnel syndrome; Translations: [Carpal tunnel syndrome, unspecified upper limb] Onset: 8 09-29-2022 Chronic Other nervous system disorders (1 source) Luo's metatarsalgia; Translations: [Lesion of plantar nerve, unspecified lower limb] Onset: 2 09-29-2022 Chronic Other nervous system disorders (1 source) Chronic pain; Translations: [Other chronic pain] Chronic Other nervous system disorders (3 sources) Carpal tunnel syndrome of left wrist; Translations: [Carpal tunnel syndrome, left upper limb] Chronic Other nervous system disorders (1 source) Carpal tunnel syndrome of right wrist; Translations: [Carpal tunnel syndrome, right upper limb] Chronic Other nervous system disorders (1 source) Paresthesia; Translations: [Paresthesia of skin] 12-14-2023 Episodic Other non-traumatic joint disorders (1 source) Pain in right knee; Translations: [Pain in joint, lower leg] 12-28-2023 Episodic Other nutritional; endocrine; and metabolic disorders (1 source) Obesity, unspecified; Translations: [OBESITY UNSPECIFIED] Onset: 3 Chronic Other nutritional; endocrine; and metabolic disorders (1 source) Body mass index (BMI) 33.0-33.9, adult; Translations: [BODY MASS INDEX BMI 33.0-33.9 ADULT] Onset: 3 Chronic Other nutritional; endocrine; and metabolic disorders (3 sources) Obesity; Translations: [Obesity, unspecified] Chronic Other nutritional; endocrine; and metabolic disorders (2 sources) Obesity caused by energy imbalance; Translations: [Other obesity due to excess calories] Onset: 3 12-14-2023 Chronic Other nutritional; endocrine; and metabolic disorders (1 source) Body mass index 30+ - obesity; Translations: [Body mass index (BMI) 31.0-31.9, adult] Chronic Other screening for suspected conditions (not mental disorders or infectious disease) (1 source) Abnormal electrocardiogram [ECG] [EKG]; Translations: [ABNORMAL ELECTROCARDIOGRAM] Onset: 3 Episodic Other upper respiratory disease (1 source) Allergic rhinitis; Translations: [Allergic rhinitis, unspecified] Onset: 7 09-29-2022 Chronic Residual codes; unclassified (1 source) Postprocedural state finding; Translations: [Other specified postprocedural states] Episodic Residual codes; unclassified (1 source) Other specified postprocedural states Episodic Rheumatoid arthritis and related disease (3 sources) Rheumatoid arthritis; Translations: [Rheumatoid arthritis] Chronic Screening and history of mental health and substance abuse codes (4 sources) Personal history of nicotine dependence; Translations: [Ex-smoker] Onset: 3 Episodic Comment on above: quit in the ; Spondylosis; intervertebral disc disorders; other back problems (3 sources) Degeneration of cervical intervertebral disc; Translations: [Other cervical disc degeneration, unspecified cervical region] Chronic Spondylosis; intervertebral disc disorders; other back problems (20 sources) Lumbar radiculopathy; Translations: [Radiculopathy, lumbar region] Onset: 2 05-12-2019 Episodic Systemic lupus erythematosus and connective tissue disorders (7 sources) Systemic lupus erythematosus, unspecified; Translations: [Autoimmune connective tissue disorder] Onset: 2 12-14-2023 Chronic Unclassified (1 source) Unknown / UNK(Unknown) Onset: 8 Unclassified (2 sources) Low back pain, unspecified; Translations: [Low back pain, unspecified] Onset: 4 Unclassified (1 source) Spinal stenosis, lumbar region without neurogenic claudication; Translations: [Spinal stenosis, lumbar region without neurogenic claudication] Onset: 4 Unclassified (1 source) Low back pain, unspecified; Translations: [Low back pain, unspecified] Onset: 4 Unclassified (1 source) Pain in right hip; Translations: [Pain in right hip] Onset: 3 Unclassified (1 source) Sjogren syndrome, unspecified; Translations: [Sjogren syndrome, unspecified] Onset: 3 Unclassified (1 source) Encounter for preprocedural laboratory examination; Translations: [Encounter for preprocedural laboratory examination] Onset: 3 Past or Other Problems Problem Classification Problem Date Documented Date Episodic/Chronic Cancer; other and unspecified primary (1 source) Squamous cell carcinoma of cornea; Translations: [Malignant neoplasm of unspecified cornea] Onset: 11-21-2013 Resolved: 04-15-2023 04-15-2023 Chronic E Codes: Fall (1 source) Fall from chair, initial encounter; Translations: [FALL FROM CHAIR INITIAL ENCOUNTER] Onset: 04-13-2022 Episodic Mood disorders (1 source) Mood disorders Onset: 12-14-2023 12-14-2023 Neoplasms of unspecified nature or uncertain behavior (1 source) Conjunctival intraepithelial neoplasia; Translations: [Neoplasm of unspecified behavior of other specified sites] Onset: 10-13-2015 09-29-2022 Episodic Nonspecific chest pain (8 sources) Other chest pain; Translations: [Chest pain] Onset: 03-20-2023 Episodic Other connective tissue disease (1 source) Right rotator cuff syndrome; Translations: [Unspecified rotator cuff tear or rupture of right shoulder, not specified as traumatic] Onset: 11-21-2008 09-29-2022 Episodic Other injuries and conditions due to external causes (1 source) Other specified injuries of head, initial encounter; Translations: [OTH SPEC INJURIES HEAD INITIAL ENC] Onset: 04-13-2022 Episodic Other lower respiratory disease (1 source) Shortness of breath; Translations: [Shortness of breath] Onset: 04-13-2023 Episodic Other nutritional; endocrine; and metabolic disorders (1 source) Body mass index 25-29 - overweight; Translations: [Overweight] Onset: 01-20-2017 Resolved: 04-15-2023 04-15-2023 Episodic Other skin disorders (1 source) Actinic keratosis; Translations: [Actinic keratosis] Onset: 02-12-2017 09-29-2022 Episodic Sprains and strains (3 sources) Sprain of joints and ligaments of unspecified parts of neck, initial encounter; Translations: [Glenoid labrum tear] Onset: 11-21-2008 09-29-2022 Episodic Superficial injury; contusion (1 source) Contusion of right upper arm, initial encounter; Translations: [CONTUSION RIGHT UPPER ARM INITIAL] Onset: 04-13-2022 Episodic Unclassified (1 source) Lumbar pain M54.50 Results Test Name Value Interpretation Reference Range Facility ECG 12-Leadon 02-03-2024 ECG 12-Lead [id number] Normal [facility] Lab Reportson 02-03-2024 Lab Reports [id number]#[id number] Normal [facility] Lab Reportson 02-02-2024 Lab Reports [id number]#[id number] Normal [facility] ED Note-Physicianon 01-30-20 24 ED Note-Physician [id number]#[id number] Normal [facility] Lab Reportson 01-30-2024 Lab Reports [id number]#[id number] Normal [facility] Calculus Analysison 01-26-20 Calcium oxalate dihydrate Infrared spectroscopy (Stone) [Mass fraction] 10 % Invalid Interpretation Code [facility] Comment on above: Performed By: #### 1 [id number] ####[facility] [id number] [place] [address] Calcium oxalate monohydrate (Stone) [Mass fraction] 90 % Invalid Interpretation Code [facility] Comment on above: Performed By: #### 1 [id number] ####[address] [place] [address] Color (Stone) Alexander Invalid Interpretation Code [facility] Comment on above: Performed By: #### 1 [id number] ####[address] [address] Composition Comment Invalid Interpretation Code [facility] Comment on above: Result Comment: Perc entage (Represents the % composition) Performed By: #### 1 [id number] ####[address] [address] Disclaimer: Comment Invalid Interpretation Code [facility] Comment on above: Result Comment: This test was developed and its performance characteristics determined by [employer]. It has not been cleared or approved by the Food and Drug Administration. Performed at: [address] [id number] [facility] Performed By: #### 1 [id number] ####[address] [place] [address] Laboratory comment Aj (Report) Comment Invalid Interpretation Code [facility] Comment on above: Result Comment: Marcio joyner questions regarding Calculi Analysis contact [facility] at: [phone]. Performed By: #### 1 [id number] ####[address] [place] [address] Please Note: Comment Invalid Interpretation Code [facility] Comment on above: Result Comment: Calc yovani report will follow via computer, mail or quick mixer operator delivery. Performed By: #### 1 [id number] ####[address] [place] [address] Size (Stone) [Entitic vol] 4x3 Invalid Interpretation Code [facility] Comment on above: Result Comment: Sing le piece received. Performed By: #### 1 [id number] ####[address] [place] [address] Specimen source subject Nom Comment Invalid Interpretation Code [facility] Comment on above: Result Comment: Not provided Performed By: #### 1 [id number] ####[facility] [id number] [place] [address] Stone Photo Comment Invalid Interpretation Code [facility] Comment on above: Result Comment: Phot ograph will follow under a separate cover Performed By: #### 1 [id number] ####[address] [place] [address] Weight (Stone) 25 mg Invalid Interpretation Code [facility] Comment on above: Performed By: #### 1 [id number] ####[address] [place] [address] Consent for Procedure/Surger yon 01-20-2024 Consent for Procedure/Surgery [id number] Normal [facility] RAD - CT Reporton 01-20-2024 RAD - CT Report [id number] Normal [facility] Screenson 01-19-2024 Screens [id number]#[id number] Normal [facility] Ambulatory Visit Summaryon 0 01-18-2024 Ambulatory Visit Summary VALENTIN TORRE :1955 Visit Date:01/18/2024 Ambulatory Visit Instructions Your Diagnosis Ureteral stone with hydronephrosis Kidney stones Your Care Team Attending Physician - FLAVIO ONEAL, Zac De Oliveira Primary Care Physician - SASCHA SUTTON DO This Is Your Medications List potassium bicarbonate (Effervescent Potassium 25 mEq oral tablet) tamsulosin (Flomax 0.4 mg Cap) Contact prescribing physician if questions or concerns acetaminophen (acetaminophen 500 mg Tab) aspirin (aspirin 81 mg oral capsule) colchicine (colchicine 0.6 mg Tab) fexofenadine-pseudoephedrin e (Seema D OTC 24HR) folic acid (folic acid 1 mg Tab) hydrochlorothiazide-lisinop ril (hydrochlorothiazide-lisino pril 12.5 mg-20 mg Tab) hydroxychloroquine (hydroxychloroquine 200 mg Tab) ketorolac (ketorolac 10 mg Tab) leflunomide (leflunomide 10 mg oral tablet) methotrexate (methotrexate 1 g injection) methylPREDNISolone (Medrol 4 mg Tab) montelukast (montelukast 10 mg Tab) nabumetone (nabumetone 750 mg Tab) ocular lubricant (Refresh [employer] Therapy) omeprazole (omeprazole 40 mg Cap-DR) prednisoLONE simvastatin (simvastatin 20 mg Tab) tramadol (traMADOL 50 mg Tab) Procedures Performed Arthroplasty of knee, Arthroscopy of knee, Carpal tunnel release, Cleft palate, Colonoscopy, EGD - Esophagogastroduodenoscopy, Procedure on shoulder, Procedure on spine, Skin cancer, Tympanoplasty. Discharge Vitals Height 173 cm Height 68 in Weight 97.5 kg Weight 214.5 lb BMI 32.58 What to do next Scheduled Follow-Up Appointments Tuesday. 2023 8:15 AM EDT With: Zac MUNIZ MD Where: [facility] Ambulatory Visit Summary VALENTIN TORRE :1955 Visit Date:01/18/2024 Ambulatory Visit Instructions Your Diagnosis Ureteral stone with hydronephrosis Kidney stones Your Care Team Attending Physician - Zac MUNIZ MD Primary Care Physician - SASCHA SUTTON DO This Is Your Medications List potassium bicarbonate (Effervescent Potassium 25 mEq oral tablet) tamsulosin (Flomax 0.4 mg Cap) Contact prescribing physician if questions or concerns acetaminophen (acetaminophen 500 mg Tab) aspirin (aspirin 81 mg oral capsule) colchicine (colchicine 0.6 mg Tab) fexofenadine-pseudoephedrin e (Seema D OTC 24HR) folic acid (folic acid 1 mg Tab) hydrochlorothiazide-lisinop ril (hydrochlorothiazide-lisino pril 12.5 mg-20 mg Tab) hydroxychloroquine (hydroxychloroquine 200 mg Tab) ketorolac (ketorolac 10 mg Tab) leflunomide (leflunomide 10 mg oral tablet) methotrexate (methotrexate 1 g injection) methylPREDNISolone (Medrol 4 mg Tab) montelukast (montelukast 10 mg Tab) nabumetone (nabumetone 750 mg Tab) ocular lubricant (Refresh [employer] Therapy) omeprazole (omeprazole 40 mg Cap-DR) prednisoLONE simvastatin (simvastatin 20 mg Tab) tramadol (traMADOL 50 mg Tab) Procedures Performed Arthroplasty of knee, Arthroscopy of knee, Carpal tunnel release, Cleft palate, Colonoscopy, EGD - Esophagogastroduodenoscopy, Procedure on shoulder, Procedure on spine, Skin cancer, Tympanoplasty. Discharge Vitals Height 173 cm Height 68 in Weight 97.5 kg Weight 214.5 lb BMI 32.58 What to do next Scheduled Follow-Up Appointments Tuesday. 2023 8:15 AM EDT With: FLAVIO ONEAL, Zac De Oliveira Where: [facility] Patient Educationon 01-18-20 24 Patient Education Nephrology Lithotripsy, Care After This sheet gives you information about how to care for yourself after your procedure. Your health care provider may also give you more specific instructions. If you have problems or questions, contact your health care provider. What can I expect after the procedure? After the procedure, it is common to have: ? Some blood in your urine. This should only last for a few days. ? Soreness in your back, sides, or upper abdomen for a few days. ? Blotches or bruises on the area where the shock wave entered the skin. ? Pain, discomfort, or nausea when pieces (fragments) of the kidney stone move through the tube that carries urine from the kidney to the bladder (ureter). Stone fragments may pass soon after the procedure, but they may continue to pass for up to 4?8 weeks. ? If you have severe pain or nausea, contact your health care provider. This may be caused by a large stone that was not broken up, and this may mean that you need more treatment. ? Some pain or discomfort during urination. ? Some pain or discomfort in the lower abdomen or (in men) at the base of the penis. Follow these instructions at home: Medicines ? Take [id number]-[id number] and prescription medicines only as told by your health care provider. ? If you were prescribed an antibiotic medicine, take it as told by your health care provider. Do not stop taking the antibiotic even if you start to feel better. ? Ask your health care provider if the medicine prescribed to you requires you to avoid driving or using machinery. Eating and drinking ? Drink enough fluid to keep your urine pale yellow. This helps any remaining pieces of the stone to pass. It can also help prevent new stones from forming. ? Eat plenty of fresh fruits and vegetables. ? Follow instructions from your health care provider about eating or drinking restrictions. You may be instructed to: ? Reduce how much salt (sodium) you eat or drink. Check ingredients and nutrition facts on packaged foods and beverages to see how much sodium they contain. ? Reduce how much meat you eat. ? Eat the recommended amount of calcium for your age and gender. Ask your health care provider how much calcium you should have. General instructions ? Get plenty of rest. ? Return to your normal activities as told by your health care provider. Ask your health care provider what activities are safe for you. Most people can resume normal activities 1?2 days after the procedure. ? If you were given a sedative during the procedure, it can affect you for several hours. Do not drive or operate machinery until your health care provider says that it is safe. ? Your health care provider may direct you to lie in a certain position (postural drainage) and tap firmly (percuss) over your kidney area to help stone fragments pass. Follow instructions as told by your health care provider. ? If directed, strain all urine through the strainer that was provided by your health care provider. ? Keep all fragments for your health care provider to see. Any stones that are found may be sent to a medical lab for examination. The stone may be as small as a grain of salt. ? Keep all follow-up visits as told by your health care provider. This is important. Contact a health care provider if: ? You have a fever or chills. ? You have nausea that is severe or does not go away. ? You have any of these urinary symptoms: ? Blood in your urine for longer than your health care provider told you to expect. ? Urine that smells bad or unusual. ? Feeling a strong urge to urinate after emptying your bladder. ? Pain or burning with urination that does not go away. ? Urinating more often than usual and this does not go away. ? You have a stent and it comes out. Get help right away if: ? You have severe pain in your back, sides, or upper abdomen. ? You have any of these urinary symptoms: ? Severe pain while urinating. ? More blood in your urine or having blood in your urine when you did not before. ? Passing blood clots in your urine. ? Passing only a small amount of urine or being unable to pass any urine at all. ? You have severe nausea that leads to persistent vomiting. ? You faint. Summary ? After this procedure, it is common to have some pain, discomfort, or nausea when pieces (fragments) of the kidney stone move through the tube that carries urine from the kidney to the bladder (ureter). If this pain or nausea is severe, however, you should contact your health care provider. ? Return to your normal activities as told by your health care provider. Ask your health care provider what activities are safe for you. ? Drink enough fluid to keep your urine pale yellow. This helps any remaining pieces of the stone to pass, and it can help prevent new stones from forming. ? If directed, strain your urine and keep all fragments for your health care p (more content not included)... Normal [facility] Urology Office/Clinic Noteon 01-18-2024 Urology Office/Clinic Note Chief Complaint 2 week follow up to ER visit w/ KUB HPI Staff 2 wk f/u to ER visit w/ KUB. Last seen by Dr. Muniz 09/19/23. Previous dx: kidney stones, hx of kidney stones. *Started on Effer-K as last OV. Electrolyte panel done 10/20/23 - results given over the phone. [facility] ER visit 01/02/24 c/o abdominal pain. Was given Levofloxacin 500mg x5 days due to WBC 16.9. Also given Flomax #10 and pain medication. Found to have R ureteral stone. CT AP wo con 01/03/24 [facility]. 01/03/24 - BUN 21, Cr 1.14, eGFR >60 Pt called our office 01/03/24 to inform us of ER visit and determine f/u. Pt was advised to obtain KUB, strain urine, and to increase Flomax from qd to bid, was given 30 day supply from our office. Pt states he passed stone 01/14/24. Dysuria: denies pain and burning Incomplete bladder emptying: denies Hematuria: denies visible blood Frequency: denies Urgency: denies Nocturia: denies Stream: denies hesitancy Leaking: denies Post void dripping: denies Wearing pads/ Depends: denies Urge incontinence: denies Stress incontinence: denies Incontinence without Sensory Awareness: denies Abdominal pain: denies Flank pain: denies Sexual complaints: _ History of Present Illness Tests reviewed: reviewed UA, ER, CT, KUB I have reviewed the previous health record information and history for this patient from Dr. Muniz. I have reviewed and verified the staff HPI to be accurate for this encounter. There have been no associated fever, chills, flank pain, or blood in the urine. Denies any urinary infections since last encounter. Review of Systems PHQ Score Initial Depression Screen Score: 0 SCORE ROS - Provider Constitutional: denies weight loss, denies hot flashes. Eyes: denies eye problems. Gastrointestinal: denies nausea, denies vomiting. Cardiovascular: denies chest pain or angina. Integumentary: no dryness Musculoskeletal: denies musculoskeletal symptoms. ENMT: denies otolaryngeal symptoms. Respiratory: no shortness of breath. Heme/Lymph: denies easy bleeding tendency, denies easy bruising tendency. Psychiatric: no confusion, no anxiety. Genitourinary: See HPI. Physical Exam Vitals & Measurements HT: 68 in HT: 173 cm WT: 97.5 kg WT: 214.5 lb BMI: 32.58 General Appearance: alert, no distress, well nourished, well developed male. Genitourinary: normal scrotum, normal testes, normal urethra, normal epididymis, normal vas deferens/spermatic cord. Flank Pain: none. Bladder: nonpalpable. Assessment/Plan IPSS 13. 1. Ureteral stone with hydronephrosis (N13.2: Hydronephrosis with renal and ureteral calculous obstruction) [facility] ED 01/02/[address] due to abdominal [address]. CT AP wo con 01/03/24 [facility] - L renal hypodensities suggesting cysts. Bilat renal stones. [employer] 5 mm. Mild R hydroureteronephrosis w/periureteral stranding secondary to a distal ureteral stone w/in 2-3 cm of UVJ measuring 4 mm. 01/03/24 - BUN 21. Cr 1.14. eGFR >60. KUB 01/11/24 [facility] - Kidneys are partially obscured, R>L. 3 mm stone seen along the margin of the sacrococcygeal junction on the R that could be the distal ureteral stone on the CT. UA today negative for blood and infection. Pt passed stone 01/14/24 and brought to the office, will send for analysis. -Send stone for analysis. 2. Kidney stones (N20.0: Calculus of kidney) Electrolyte panel 10/20/23 - wnl. KUB 01/11/24 [facility] - Kidneys are partially obscured, R>L. Group of 3 tiny stones at the LLQ of the abdomen which are a couple mm in size and potentially renal stones. A stone overlying the RUP 3 mm which probably correlates w/the renal stone seen previously on that side. Started Potassium Bicarb 25 mEq bid at prior OV. Reviewed imaging with pt. Has not had surgical intervention for stones in the past. Discussed surgical intervention options for the remaining renal stone including ESWL if visible on x-ray (less invasive, lower stone free rate) and ureteroscopy/laser litho with possible stent placement (more invasive, higher stone free rate). Risks and benefits of each discussed. Discussed L ESWL first then possible R ESWL after. Discussed metabolic workup including 24 hour urine and blood work for stone prevention. Pt aware he will have to hold Aspirin for ESWL. -Will schedule L ESWL. The procedure risks, benefits, details and treatment alternatives have been discussed with the patient. These include blood in the urine, infection, bleeding around the kidney, kidney bruising, inability to break up the stone, need for blood transfusion, blockage from stone fragments, and need for additional procedures, among others. Full informed consent has been obtained. Will order General anesthesia. -R ESWL after L ESWL. -Met workup once stone free. Follow-up With When Contact Information Zac MUNIZ MD, [facility] [address], [place] [address]- Additional Instructions: schedule L ESWL Patient Education Lithotripsy, Care After Lithotripsy ITeena (more content not included)... Normal [facility] Comment on above: Result Comment: Elec tronically Signed By: Zac MUNIZ MD\.br\Date and Time Signed: 01/18/24 09:36 EST\.br\Electronically Co-Signed By: Teena Stanley\.br\Date and Time Co-Signed: 01/18/24 09:35 EST Lab Reportson 01-12-2024 Lab Reports [id number] Normal [facility] RAD - MISCon 01-12-2024 RAD - MISC [id number] Normal [facility] Carbon dioxide, total [Moles /volume] in Serum or PlasmaOrdered By: Zac Muniz on 01-11-2024 CO2 [Moles/Vol] 22.4 mmol/L 21.0-31.0 [facility] Chloride [Moles/volume] in S ace or PlasmaOrdered By: Zac Muniz on 01-11-2024 Chloride [Moles/Vol] 104 mmol/L 98-107 [facility] Electrolyteson 01-11-2024 Anion gap [Moles/Vol] 13.0 mmol/L Normal 6.0-15.0 [facility] Comment on above: Result Comment: PERF ORMED BY: [place] [address] PATHOLOGIST [employer] OLMAN ALBARRAN M.D. Performed By: #### O XAL 24HRU, U24 CA, MAG 24HRU, CITRIC UR, PHOS 24HRU, URIC 24HRU #### [facility] , #### COL T V, U24 NA, CREA24 #### [facility] [address] [place] [address] Chloride [Moles/Vol] 104 mmol/L Normal 98-107 [facility] Comment on above: Performed By: #### O XAL 24HRU, U24 CA, MAG 24HRU, CITRIC UR, PHOS 24HRU, URIC 24HRU #### [facility] , #### COL T V, U24 NA, CREA24 #### [facility] [address] [place] [address] [place] CO2 [Moles/Vol] 22.4 mmol/L Normal 21.0-31.0 [facility] Comment on above: Performed By: #### O XAL 24HRU, U24 CA, MAG 24HRU, CITRIC UR, PHOS 24HRU, URIC 24HRU #### [facility] , #### COL T V, U24 NA, CREA24 #### [address] Potassium [Moles/Vol] 4.4 mmol/L Normal 3.5-5.1 [facility] Comment on above: Performed By: #### O XAL 24HRU, U24 CA, MAG 24HRU, CITRIC UR, PHOS 24HRU, URIC 24HRU #### [facility] , #### COL T V, U24 NA, CREA24 #### [address] Sodium [Moles/Vol] 135 mmol/L Low 136-145 [facility] Comment on above: Performed By: #### O XAL 24HRU, U24 CA, MAG 24HRU, CITRIC UR, PHOS 24HRU, URIC 24HRU #### [facility] , #### COL T V, U24 NA, CREA24 #### [facility] [address] [place] [address] MR lumbar spine wo/w conon 0 01-11-2024 MR lumbar spine wo/w [place] [address] MRI Report Signed Patient: Valentin Torre MR#: [id number] 29 : 1955 Acct:[id number] Age/Sex: 68 / M ADM Date: 01/10/24 Loc: MR [facility]: [facility] Att[facility] Dr: Мария DAUGHERTY Copies to: WILLOW Barba Ordering Provider: WILLOW Barba Date of Service: 01/10/24 MR/MR lumbar spine wo/w con: M54.12 MR lumbar spine wo/w con 01/11/2024 6:34 AM SIGNS AND SYMPTOMS: Low back pain, history of lumbar surgery PROTOCOL: Multiplanar multisequence MR images of the lumbar spine were obtained with and without IV contrast CONTRAST: 20 mL of intravenous ProHance COMPARISON: 06/04/2019 FINDINGS: There is 6 mm of anterolisthesis of L4 upon L5 which is worsened compared with prior exam. There has been interval posterior fusion hardware placement with posterior decompression. The bones are otherwise in anatomic alignment. There is preservation of vertebral body heights. There is moderate to severe disc height loss at L2-L3 and L4-5 with mild disc height loss throughout. There is Modic type II fatty endplate degenerative change at L2-3 and L4-L5. There is accompanying Modic type I endplate edema at L2-3. Conus terminates at the L1-L2 intervertebral disc level. No epidural or paraspinous fluid collection is appreciated. There is no abnormal postcontrast enhancement. At T12-L1: There is a mild broad-based disc bulge. There is mild spinal canal stenosis with no significant neural foraminal narrowing. This is unchanged. At L1-L2: There is broad-based disc bulge with facet hypertrophy and ligamentum flavum thickening. There is mild spinal canal narrowing with moderate bilateral neural foraminal stenosis neural foraminal stenosis is slightly worse when compared to the prior exam, predominantly on the left. At L2-L3: There is a broad-based disc bulge with facet hypertrophy and ligamentum flavum thickening. Small bilateral facet effusions are present. There is moderate narrowing of the spinal canal with moderate to severe right and moderate left neural foraminal stenosis. Neural foraminal narrowing is worse when compared to the prior exam. At L3-L4: There is a circumferential disc bulge with facet hypertrophy. There is ligamentum flavum thickening. Small bilateral facet effusions are present. There is severe spinal canal stenosis with moderate to severe bilateral neural foraminal narrowing. This is worse when compared to the prior exam. The nerve roots of the cauda equina are redundant below this level suggesting mass effect on the traversing nerve roots. At L4-L5: There is intervertebral fusion and posterior decompression. There is 6 mm of anterolisthesis of L4 upon L5. Bilateral facet hypertrophy is present. There is moderate bilateral neural foraminal narrowing without significant spinal canal narrowing. At L5-S1: Facet hypertrophy is present with ligamentum flavum thickening and bilateral facet effusions. There is mild bilateral neural foraminal narrowing without significant spinal canal stenosis. MR/MR lumbar spine wo/w con IMPRESSION: At L1-L2: There is broad-based disc bulge with facet hypertrophy and ligamentum flavum thickening. There is mild spinal canal narrowing with moderate bilateral neural foraminal stenosis neural foraminal stenosis is slightly worse when compared to the prior exam, predominantly on the left. At L2-L3: There is a broad-based disc bulge with facet hypertrophy and ligamentum flavum thickening. Small bilateral facet effusions are present. There is moderate narrowing of the spinal canal with moderate to severe right and moderate left neural foraminal stenosis. Neural foraminal narrowing is worse when compared to the prior exam. At L3-L4: There is a circumferential disc bulge with facet hypertrophy. There is ligamentum flavum thickening. Small bilateral facet effusions are present. There is severe spinal canal stenosis with moderate to severe bilateral neural foraminal narrowing. This is worse when compared to the prior exam. The nerve roots of the cauda equina are redundant below this level suggesting mass effect on the traversing nerve roots. At L4-L5: There is intervertebral fusion and posterior decompression. There is 6 mm of anterolisthesis of L4 upon L5. Bilateral facet hypertrophy is present. There is moderate bilateral neural foraminal narrowing without significant spinal canal narrowing. No abnormal postcontrast enhancement. Impression dictated by: Yaneth Bill M.D.01/11/2024 12:50 PM Dictation Location: [place] [address] Transcribed By: [facility] 01/11/24 1250 Dictated By: Yaneth Bill II, MD 01/11/24 1244 Signed By: 01/11/24 1250 [facility] Potassium [Moles/volume] in Serum or PlasmaOrdered By: Zac Muniz on 01-11-2024 Potassium [Moles/Vol] 4.4 mmol/L 3.5-5.1 [facility] Serum or plasma anion gap de terminationOrdered By: Zac Muniz on 01-11-2024 Anion gap [Moles/Vol] 13.0 mmol/L 6.0-15.0 [facility] Sodium [Moles/volume] in Ser um or PlasmaOrdered By: Zac Muniz on 01-11-2024 Sodium [Moles/Vol] 135 mmol/L 136-145 [facility] XR abdomen 1Von 01-11-2024 XR abdomen 1V [facility] [address] [place] [id number] XRay Report Signed Patient: Valentin Torre MR#: [id number] 29 : 1955 Acct:[id number] Age/Sex: 68 / M ADM Date: 01/11/24 Loc: XD Room: Type: [facility] Attending Dr: Zac Muniz MD Copies to: Zac Muniz MD Ordering Provider: Zac Muniz MD Date of Service: 01/11/24 XR/XR abdomen 1V: N20.0 SINGLE VIEW ABDOMEN COMPARISON: 08/04/[address] 01/03/2024 CLINICAL DATA: Follow-up right-sided kidney stones. Back pain. Supine views of the abdomen and pelvis were obtained. There is air and stool within the colon. There is no dilated small bowel. The kidneys are partially obscured, greater on the right. There is a group of 3 tiny calcifications at the left lower abdomen which are a couple millimeters in size and potentially renal stones. There is also a calcification overlying the upper pole of the right kidney measuring 3 mm in size which probably correlates with the renal stone seen previously on that side. A 3 mm calcification is seen along the margin of the sacrococcygeal junction on the right that could be the distal ureteral stone on the CT study. There are no soft tissue masses. There are postoperative and degenerative changes at the spine. XR/XR abdomen 1V IMPRESSION: BILATERAL NEPHROLITHIASIS AND SUSPECTED RADIOPAQUE DISTAL RIGHT URETERAL STONE. Impression dictated by: Christine Alexandra M.D.01/11/2024 1:27 PM Dictation Location: [place] [address] Transcribed By: [facility] 01/11/24 1327 Dictated By: Christine Alexandra MD 01/11/24 1321 Signed By: 01/11/24 1327 Normal [facility] Alanine aminotransferase [En zymatic activity/volume] in Serum or PlasmaOrdered By: Edenilson Reinoso on 01-03-2024 ALT [Catalytic activity/Vol] 43 U/L 7-52 [facility] Albumin [Mass/volume] in Ser um or Plasma by Bromocresol green (BCG) dye binding methoOrdered By: Edenilson Reinoso on 01-03-2024 Albumin BCG dye [Mass/Vol] 4.6 g/dL 3.5-5.7 [facility] Alkaline phosphatase [Enzyma tic activity/volume] in Serum or PlasmaOrdered By: Edenilson Reinoso on 01-03-2024 ALP [Catalytic activity/Vol] 78 U/L 34-104 [facility] Aspartate aminotransferase [ Enzymatic activity/volume] in Serum or PlasmaOrdered By: Edenilson Reinoso on 01-03-2024 AST [Catalytic activity/Vol] 28 U/L 13-39 [facility] Automated erythrocytes count in urine sediment (number/area)Ordered By: Edenilson Reinoso on 01-03-2024 RBC Auto (Urine sed) [#/Area] 3-4 [HPF] 0-4 [facility] Automated leukocytes count i n urine sediment (number/area)Ordered By: Edenilson Reinoso on 01-03-2024 WBC Auto (Urine sed) [#/Area] 3-4 [HPF] 0-4 [facility] Basophils Auto (Bld) [#/Vol] Ordered By: Edenilson Reinoso on 01-03-2024 Basophils (Bld) [#/Vol] 0.0 10*3/uL 0.0-0.2 [facility] Basophils/100 WBC Auto (Bld) Ordered By: Edenilson Reinoso on 01-03-2024 Basophils/100 WBC (Bld) 0.2 % . [facility] Bilirubin Test strip Ql (U)O rdered By: Edenilson Reinoso on 01-03-2024 Bilirubin Ql (U) Negative Negative [facility] Bilirubin.total [Mass/volume ] in Serum or PlasmaOrdered By: Edenilson Reinoso on 01-03-2024 Bilirubin [Mass/Vol] 0.6 mg/dL 0.3-1.[address] [facility] [address] abdomen pelvis wo conon 0 01-03-2024 CT abdomen pelvis wo [place] [address] CT Scan Report Signed Patient: Valentin Torre MR#: [id number] 29 : 1955 Acct:[id number] Age/Sex: 68 / M ADM Date: 01/02/24 Loc: ER Room: Type: [facility] ER Attending Dr: Copies to: Edenilson Reinoso Jr, MD Ordering Provider: Edenilson Reinoso Jr, MD Date of Service: 01/03/24 CT/CT abdomen pelvis wo con: abdominal pain CT ABDOMEN AND PELVIS WITHOUT CONTRAST COMPARISON: 05/03/2023 CLINICAL DATA: Right flank pain, nausea and vomiting. History of kidney stones. Spiral images were obtained through the abdomen and pelvis without contrast. This CT exam was performed using one or more following dose reduction techniques: Automated exposure control, adjustment of the mA and/or kV according to patient size, or use of iterative reconstruction technique. Limited cuts through the lung bases show minimal atelectasis or scarring. There is a small hiatal hernia. Evaluation of the intra-abdominal organs is slightly limited by the absence of contrast. No calcified gallstones are identified. The liver, spleen, pancreas and adrenal glands show no contributory findings. There is bilateral perinephric fibrofatty stranding. There are left renal hypodensities suggesting cysts. There are bilateral renal stones. The largest is at the lower pole on the left measuring 5 mm. There is mild right hydronephrosis and hydroureter with periureteral stranding. This is secondary to a distal ureteral stone within 2 to 3 cm of the ureterovesical junction measuring 4 mm in size. There is atherosclerotic plaque involving the aorta. There are small lymph nodes. No ascites is seen. The small bowel loops are not distended. There is mild stool along the colon. There is a tiny umbilical hernia containing fat. Postoperative and degenerative changes are again seen at the spine. Images through the pelvis show no dilated small bowel. No appendiceal inflammation is seen. There is mild distal colonic stool. Descending and sigmoid diverticula are present, without associated active inflammation. The bladder is not well distended for assessment. The prostate is top normal in size. There are benign inguinal lymph nodes with fatty paulino. No ascites is seen. CT/CT abdomen pelvis wo con IMPRESSION: SMALL HIATAL HERNIA. SUSPECTED LEFT RENAL CYSTS. BILATERAL NEPHROLITHIASIS. PARTIALLY OBSTRUCTING DISTAL RIGHT URETERAL STONE. DIVERTICULOSIS. Impression dictated by: Christine Alexandra M.D.01/03/2024 9:53 AM Dictation Location: [facility] Transcribed By: MARV 01/03/24952 Dictated By: Christine Alexandra MD 01/03/2447 Signed By: 01/03/24952 Normal [facility] Calcium [Mass/volume] in Ser um or PlasmaOrdered By: Edenilson Reinoso on 01-03-2024 Calcium [Mass/Vol] 9.3 mg/dL 8.6-10.3 [facility] Carbon dioxide, total [Moles /volume] in Serum or PlasmaOrdered By: Edenilson Reinoso on 01-03-2024 CO2 [Moles/Vol] 20.7 mmol/L 21.0-31.0 [facility] Chloride [Moles/volume] in S ace or PlasmaOrdered By: Edenilson Reinoso on 01-03-2024 Chloride [Moles/Vol] 106 mmol/L 98-107 [facility] Color Auto (U)Ordered By: Chen Reinoso on 01-03-2024 Color (U) Dark yellow Yellow [facility] Complete Blood Count Auto Di ffon 01-03-2024 Basophils (Bld) [#/Vol] 0.0 10*3/uL Normal 0.0-0.2 [facility] Comment on above: Result Comment: PERF ORMED BY: [place] [address] PATHOLOGIST [employer] OLMAN ALBARRAN M.D. Performed By: #### O XAL 24HRU, U24 CA, MAG 24HRU, CITRIC UR, PHOS 24HRU, URIC 24HRU #### [facility] , #### COL T V, U24 NA, CREA24 #### [place] [address] [place] Basophils/100 WBC (Bld) 0.2 % Normal . [facility] Comment on above: Performed By: #### O XAL 24HRU, U24 CA, MAG 24HRU, CITRIC UR, PHOS 24HRU, URIC 24HRU #### [facility] , #### COL T V, U24 NA, CREA24 #### [address] Eosinophils (Bld) [#/Vol] 0.0 10*3/uL Normal 0.0-0.45 [facility] Comment on above: Performed By: #### O XAL 24HRU, U24 CA, MAG 24HRU, CITRIC UR, PHOS 24HRU, URIC 24HRU #### [facility] , #### COL T V, U24 NA, CREA24 #### [address] Eosinophils/100 WBC (Bld) 0.3 % Normal . [facility] Comment on above: Performed By: #### O XAL 24HRU, U24 CA, MAG 24HRU, CITRIC UR, PHOS 24HRU, URIC 24HRU #### [facility] , #### COL T V, U24 NA, CREA24 #### [address] Erythrocyte distribution width (RBC) [Ratio] 14.7 % Normal 12.0-14.8 [facility] Comment on above: Performed By: #### O XAL 24HRU, U24 CA, MAG 24HRU, CITRIC UR, PHOS 24HRU, URIC 24HRU #### [facility] , #### COL T V, U24 NA, CREA24 #### [address] Hematocrit (Bld) [Volume fraction] 49.3 % Normal 38.8-50.0 [facility] Comment on above: Performed By: #### O XAL 24HRU, U24 CA, MAG 24HRU, CITRIC UR, PHOS 24HRU, URIC 24HRU #### [facility] , #### COL T V, U24 NA, CREA24 #### [address] Hemoglobin (Bld) [Mass/Vol] 16.6 g/dL Normal 13.0-17.0 [facility] Comment on above: Performed By: #### O XAL 24HRU, U24 CA, MAG 24HRU, CITRIC UR, PHOS 24HRU, URIC 24HRU #### [facility] , #### COL T V, U24 NA, CREA24 #### [address] Lymphocytes (Bld) [#/Vol] 0.8 10*3/uL Low 1.00-4.8 [facility] Comment on above: Performed By: #### O XAL 24HRU, U24 CA, MAG 24HRU, CITRIC UR, PHOS 24HRU, URIC 24HRU #### [facility] , #### COL T V, U24 NA, CREA24 #### [address] Lymphocytes/100 WBC (Bld) 4.8 % Normal . [facility] Comment on above: Performed By: #### O XAL 24HRU, U24 CA, MAG 24HRU, CITRIC UR, PHOS 24HRU, URIC 24HRU #### [facility] , #### COL T V, U24 NA, CREA24 #### [facility] [address] [place] [address] MCH (RBC) [Entitic mass] 30.1 pg Normal 27.5-35.2 [facility] Comment on above: Performed By: #### O XAL 24HRU, U24 CA, MAG 24HRU, CITRIC UR, PHOS 24HRU, URIC 24HRU #### [facility] , #### COL T V, U24 NA, CREA24 #### [facility] [address] [place] [address] MCV (RBC) [Entitic vol] 89.3 fL Normal 83.5-101 [facility] Comment on above: Performed By: #### O XAL 24HRU, U24 CA, MAG 24HRU, CITRIC UR, PHOS 24HRU, URIC 24HRU #### [facility] , #### COL T V, U24 NA, CREA24 #### [address] Mean Corpuscular HGB Conc 33.7 g/dL Normal 32.5-35.6 [facility] Comment on above: Performed By: #### O XAL 24HRU, U24 CA, MAG 24HRU, CITRIC UR, PHOS 24HRU, URIC 24HRU #### [facility] , #### COL T V, U24 NA, CREA24 #### [address] Monocytes (Bld) [#/Vol] 1.1 10*3/uL High 0.0-0.8 [facility] Comment on above: Performed By: #### O XAL 24HRU, U24 CA, MAG 24HRU, CITRIC UR, PHOS 24HRU, URIC 24HRU #### [facility] , #### COL T V, U24 NA, CREA24 #### [address] Monocytes/100 WBC (Bld) 20.70 % High 0.00-20.00 [facility] Comment on above: Result Comment: For adults in ED, MDW > 20.0 may be associated with a higher risk of sepsis during the first 12 hrs of hospital admission Performed By: #### O XAL 24HRU, U24 CA, MAG 24HRU, CITRIC UR, PHOS 24HRU, URIC 24HRU #### [facility] , #### COL T V, U24 NA, CREA24 #### [address] Monocytes/100 WBC (Bld) 6.7 % Normal . [facility] Comment on above: Performed By: #### O XAL 24HRU, U24 CA, MAG 24HRU, CITRIC UR, PHOS 24HRU, URIC 24HRU #### [facility] , #### COL T V, U24 NA, CREA24 #### [address] Neutrophils (Bld) [#/Vol] 14.9 10*3/uL High 1.8-7.7 [facility] Comment on above: Performed By: #### O XAL 24HRU, U24 CA, MAG 24HRU, CITRIC UR, PHOS 24HRU, URIC 24HRU #### [facility] , #### COL T V, U24 NA, CREA24 #### [address] Neutrophils/100 WBC (Bld) 88.0 % Normal . [facility] Comment on above: Performed By: #### O XAL 24HRU, U24 CA, MAG 24HRU, CITRIC UR, PHOS 24HRU, URIC 24HRU #### [facility] , #### COL T V, U24 NA, CREA24 #### [address] NRBC% 0.3 /100{WBC} Normal 0-0.5 [facility] Comment on above: Performed By: #### O XAL 24HRU, U24 CA, MAG 24HRU, CITRIC UR, PHOS 24HRU, URIC 24HRU #### [facility] , #### COL T V, U24 NA, CREA24 #### [address] Platelet mean volume (Bld) [Entitic vol] 8.5 fL Normal 6.6-10.1 [facility] Comment on above: Performed By: #### O XAL 24HRU, U24 CA, MAG 24HRU, CITRIC UR, PHOS 24HRU, URIC 24HRU #### [facility] , #### COL T V, U24 NA, CREA24 #### [address] Platelets (Bld) [#/Vol] 229 10*3/uL Normal 150-450 [facility] Comment on above: Performed By: #### O XAL 24HRU, U24 CA, MAG 24HRU, CITRIC UR, PHOS 24HRU, URIC 24HRU #### [facility] , #### COL T V, U24 NA, CREA24 #### [facility] [address] [place] [address] RBC (Bld) [#/Vol] 5.52 10*6/uL Normal 3.90-5.60 [facility] Comment on above: Performed By: #### O XAL 24HRU, U24 CA, MAG 24HRU, CITRIC UR, PHOS 24HRU, URIC 24HRU #### [facility] , #### COL T V, U24 NA, CREA24 #### [address] WBC (Bld) [#/Vol] 16.9 10*3/uL High 4.1-10.5 [facility] Comment on above: Performed By: #### O XAL 24HRU, U24 CA, MAG 24HRU, CITRIC UR, PHOS 24HRU, URIC 24HRU #### [facility] , #### COL T V, U24 NA, CREA24 #### [facility] [address] [place] [address] Comprehensive Metabolic Pane vivek 01-03-2024 Albumin [Mass/Vol] 4.6 g/dL Normal 3.5-5.7 [facility] Comment on above: Performed By: #### O XAL 24HRU, U24 CA, MAG 24HRU, CITRIC UR, PHOS 24HRU, URIC 24HRU #### [facility] , #### COL T V, U24 NA, CREA24 #### [facility] [address] [place] [address] Albumin/Globulin [Mass ratio] 1.9 {ratio} Normal [facility] Comment on above: Performed By: #### O XAL 24HRU, U24 CA, MAG 24HRU, CITRIC UR, PHOS 24HRU, URIC 24HRU #### [facility] , #### COL T V, U24 NA, CREA24 #### [address] ALP [Catalytic activity/Vol] 78 U/L Normal 34-104 [facility] Comment on above: Performed By: #### O XAL 24HRU, U24 CA, MAG 24HRU, CITRIC UR, PHOS 24HRU, URIC 24HRU #### [facility] , #### COL T V, U24 NA, CREA24 #### [address] ALT [Catalytic activity/Vol] 43 U/L Normal 7-52 [facility] Comment on above: Performed By: #### O XAL 24HRU, U24 CA, MAG 24HRU, CITRIC UR, PHOS 24HRU, URIC 24HRU #### [facility] , #### COL T V, U24 NA, CREA24 #### [address] Anion gap [Moles/Vol] 15.7 mmol/L High 6.0-15.0 [facility] Comment on above: Performed By: #### O XAL 24HRU, U24 CA, MAG 24HRU, CITRIC UR, PHOS 24HRU, URIC 24HRU #### [facility] , #### COL T V, U24 NA, CREA24 #### [address] AST [Catalytic activity/Vol] 28 U/L Normal 13-39 [facility] Comment on above: Performed By: #### O XAL 24HRU, U24 CA, MAG 24HRU, CITRIC UR, PHOS 24HRU, URIC 24HRU #### [facility] , #### COL T V, U24 NA, CREA24 #### [facility] [address] [place] [address] Bilirubin [Mass/Vol] 0.6 mg/dL Normal 0.3-1.0 [facility] Comment on above: Performed By: #### O XAL 24HRU, U24 CA, MAG 24HRU, CITRIC UR, PHOS 24HRU, URIC 24HRU #### [facility] , #### COL T V, U24 NA, CREA24 #### [facility] [address] [place] [address] Calcium [Mass/Vol] 9.3 mg/dL Normal 8.6-10.3 [facility] Comment on above: Performed By: #### O XAL 24HRU, U24 CA, MAG 24HRU, CITRIC UR, PHOS 24HRU, URIC 24HRU #### [facility] , #### COL T V, U24 NA, CREA24 #### [address] Chloride [Moles/Vol] 106 mmol/L Normal 98-107 [facility] Comment on above: Performed By: #### O XAL 24HRU, U24 CA, MAG 24HRU, CITRIC UR, PHOS 24HRU, URIC 24HRU #### [facility] , #### COL T V, U24 NA, CREA24 #### [address] CO2 [Moles/Vol] 20.7 mmol/L Low 21.0-31.0 [facility] Comment on above: Performed By: #### O XAL 24HRU, U24 CA, MAG 24HRU, CITRIC UR, PHOS 24HRU, URIC 24HRU #### [facility] , #### COL T V, U24 NA, CREA24 #### [facility] [address] [place] [address] [place] Creatinine [Mass/Vol] 1.14 mg/dL Normal 0.70-1.30 [facility] Comment on above: Performed By: #### O XAL 24HRU, U24 CA, MAG 24HRU, CITRIC UR, PHOS 24HRU, URIC 24HRU #### [facility] , #### COL T V, U24 NA, CREA24 #### [facility] [address] [place] [address] Creatinine Clr Calc Pharmacy 73.17 [facility] Comment on above: Result Comment: PERF ORMED BY: [place] [address] PATHOLOGIST [employer] OLMAN ALBARRAN M.D. Performed By: #### O XAL 24HRU, U24 CA, MAG 24HRU, CITRIC UR, PHOS 24HRU, URIC 24HRU #### [facility] , #### COL T V, U24 NA, CREA24 #### [address] GFR/1.73 sq M.predicted MDRD (S/P/Bld) [Vol rate/Area] mL/min/{1.73_m2} [facility] Comment on above: Performed By: #### O XAL 24HRU, U24 CA, MAG 24HRU, CITRIC UR, PHOS 24HRU, URIC 24HRU #### [facility] , #### COL T V, U24 NA, CREA24 #### [facility] [address] [place] [address] Globulin (S) [Mass/Vol] 2.4 g/dL [facility] Comment on above: Performed By: #### O XAL 24HRU, U24 CA, MAG 24HRU, CITRIC UR, PHOS 24HRU, URIC 24HRU #### [facility] , #### COL T V, U24 NA, CREA24 #### [facility] [address] [place] [address] Glucose [Mass/Vol] 148 mg/dL High 70-100 [facility] Comment on above: Result Comment: [facility] Glucose Reference Range is dependent on time and content of last meal. Glucose of more than 200 mg/dL in a nonstressed, ambulatory subject supports the diagnosis of Diabetes Mellitus. ADA recommended reference range Performed By: #### O XAL 24HRU, U24 CA, MAG 24HRU, CITRIC UR, PHOS 24HRU, URIC 24HRU #### [facility] , #### COL T V, U24 NA, CREA24 #### [address] Potassium [Moles/Vol] 4.4 mmol/L Normal 3.5-5.1 [facility] Comment on above: Performed By: #### O XAL 24HRU, U24 CA, MAG 24HRU, CITRIC UR, PHOS 24HRU, URIC 24HRU #### [facility] , #### COL T V, U24 NA, CREA24 #### [address] Protein [Mass/Vol] 7.0 g/dL Normal 6.4-8.9 [facility] Comment on above: Performed By: #### O XAL 24HRU, U24 CA, MAG 24HRU, CITRIC UR, PHOS 24HRU, URIC 24HRU #### [facility] , #### COL T V, U24 NA, CREA24 #### [address] Sodium [Moles/Vol] 138 mmol/L Normal 136-145 [facility] Comment on above: Performed By: #### O XAL 24HRU, U24 CA, MAG 24HRU, CITRIC UR, PHOS 24HRU, URIC 24HRU #### [facility] , #### COL T V, U24 NA, CREA24 #### [address] Urea nitrogen [Mass/Vol] 21 mg/dL Normal 7-25 [facility] Comment on above: Performed By: #### O XAL 24HRU, U24 CA, MAG 24HRU, CITRIC UR, PHOS 24HRU, URIC 24HRU #### [facility] , #### COL T V, U24 NA, CREA24 #### [facility] [address] [place] [address] [place] Creatinine [Mass/volume] in Serum or PlasmaOrdered By: Edenilson Reinoso on 01-03-2024 Creatinine [Mass/Vol] 1.14 mg/dL 0.70-1.30 [facility] Dipstick and Microscopicon 0 01-03-2024 Appearance (U) Cloudy Critically abnormal Clear [facility] Comment on above: Order Comment: URINE COLLECTION TIME (HRS): 24 URINE VOLUME (MILLILTERS): 2960 Performed By: #### O XAL 24HRU, U24 CA, MAG 24HRU, CITRIC UR, PHOS 24HRU, URIC 24HRU #### [facility] , #### COL T V, U24 NA, CREA24 #### [facility] [address] [place] [address] [place] Bacteria,Urine None Seen Normal None Seen [facility] Comment on above: Order Comment: URINE COLLECTION TIME (HRS): 24 URINE VOLUME (MILLILTERS): 2960 Performed By: #### O XAL 24HRU, U24 CA, MAG 24HRU, CITRIC UR, PHOS 24HRU, URIC 24HRU #### [facility] , #### COL T V, U24 NA, CREA24 #### [facility] [address] [place] [address] [place] Bilirubin,Urine Negative Normal Negative [facility] Comment on above: Order Comment: URINE COLLECTION TIME (HRS): 24 URINE VOLUME (MILLILTERS): 2960 Performed By: #### O XAL 24HRU, U24 CA, MAG 24HRU, CITRIC UR, PHOS 24HRU, URIC 24HRU #### [facility] , #### COL T V, U24 NA, CREA24 #### [facility] [address] [place] [id number] [place] Color (U) Dark Yellow Critically abnormal Yellow [facility] Comment on above: Order Comment: URINE COLLECTION TIME (HRS): 24 URINE VOLUME (MILLILTERS): 2960 Performed By: #### O XAL 24HRU, U24 CA, MAG 24HRU, CITRIC UR, PHOS 24HRU, URIC 24HRU #### [facility] , #### COL T V, U24 NA, CREA24 #### [facility] [address] [place] [address] Glucose Ql (U) Normal Normal Normal [facility] Comment on above: Order Comment: URINE COLLECTION TIME (HRS): 24 URINE VOLUME (MILLILTERS): 2960 Performed By: #### O XAL 24HRU, U24 CA, MAG 24HRU, CITRIC UR, PHOS 24HRU, URIC 24HRU #### [facility] , #### COL T V, U24 NA, CREA24 #### [address] Hyaline Casts,Urine 0-8 Normal 0-8 [facility] Comment on above: Order Comment: URINE COLLECTION TIME (HRS): 24 URINE VOLUME (MILLILTERS): 2960 Result Comment: PERF ORMED BY: [place] [address] PATHOLOGIST [employer] OLMAN ALBARRAN M.D. Performed By: #### O XAL 24HRU, U24 CA, MAG 24HRU, CITRIC UR, PHOS 24HRU, URIC 24HRU #### [facility] , #### COL T V, U24 NA, CREA24 #### [facility] [address] [place] [address] Ketones Ql (U) Trace High Negative [facility] Comment on above: Order Comment: URINE COLLECTION TIME (HRS): 24 URINE VOLUME (MILLILTERS): 2960 Performed By: #### O XAL 24HRU, U24 CA, MAG 24HRU, CITRIC UR, PHOS 24HRU, URIC 24HRU #### [facility] , #### COL T V, U24 NA, CREA24 #### [facility] [address] [place] [address] Leukocyte esterase Test strip Ql (U) Negative Normal Negative [facility] Comment on above: Order Comment: URINE COLLECTION TIME (HRS): 24 URINE VOLUME (MILLILTERS): 2960 Performed By: #### O XAL 24HRU, U24 CA, MAG 24HRU, CITRIC UR, PHOS 24HRU, URIC 24HRU #### [facility] , #### COL T V, U24 NA, CREA24 #### [facility] [address] [place] [address] [place] Nitrite,Urine Negative Normal Negative [facility] Comment on above: Order Comment: URINE COLLECTION TIME (HRS): 24 URINE VOLUME (MILLILTERS): 2960 Performed By: #### O XAL 24HRU, U24 CA, MAG 24HRU, CITRIC UR, PHOS 24HRU, URIC 24HRU #### [facility] , #### COL T V, U24 NA, CREA24 #### [address] Occult Blood,Urine Negative Normal Negative [facility] Comment on above: Order Comment: URINE COLLECTION TIME (HRS): 24 URINE VOLUME (MILLILTERS): 2960 Result Comment: PERF ORMED BY: [place] [address] PATHOLOGIST [employer] OLMAN ALBARRAN M.D. Performed By: #### O XAL 24HRU, U24 CA, MAG 24HRU, CITRIC UR, PHOS 24HRU, URIC 24HRU #### [facility] , #### COL T V, U24 NA, CREA24 #### [address] pH (U) 5.0 [pH] Normal 5.0-9.0 [facility] Comment on above: Order Comment: URINE COLLECTION TIME (HRS): 24 URINE VOLUME (MILLILTERS): 2960 Performed By: #### O XAL 24HRU, U24 CA, MAG 24HRU, CITRIC UR, PHOS 24HRU, URIC 24HRU #### [facility] , #### COL T V, U24 NA, CREA24 #### [address] Protein,Urine Trace High Negative [facility] Comment on above: Order Comment: URINE COLLECTION TIME (HRS): 24 URINE VOLUME (MILLILTERS): 2960 Performed By: #### O XAL 24HRU, U24 CA, MAG 24HRU, CITRIC UR, PHOS 24HRU, URIC 24HRU #### [facility] , #### COL T V, U24 NA, CREA24 #### [facility] [address] [place] [address] RBC,Urine 3-4 Normal 0-4 [facility] Comment on above: Order Comment: URINE COLLECTION TIME (HRS): 24 URINE VOLUME (MILLILTERS): 2960 Performed By: #### O XAL 24HRU, U24 CA, MAG 24HRU, CITRIC UR, PHOS 24HRU, URIC 24HRU #### [facility] , #### COL T V, U24 NA, CREA24 #### [address] Specificy [place],Urine 1.034 High 1.001-1.03 0 [facility] Comment on above: Order Comment: URINE COLLECTION TIME (HRS): 24 URINE VOLUME (MILLILTERS): 2960 Performed By: #### O XAL 24HRU, U24 CA, MAG 24HRU, CITRIC UR, PHOS 24HRU, URIC 24HRU #### [facility] , #### COL T V, U24 NA, CREA24 #### [address] Squamous Epithelial Cell,Urine 0-1 Normal 0-2 [facility] Comment on above: Order Comment: URINE COLLECTION TIME (HRS): 24 URINE VOLUME (MILLILTERS): 2960 Performed By: #### O XAL 24HRU, U24 CA, MAG 24HRU, CITRIC UR, PHOS 24HRU, URIC 24HRU #### [facility] , #### COL T V, U24 NA, CREA24 #### [facility] [address] [place] [address] Urobilinogen,Urine Normal Normal Normal [facility] Comment on above: Order Comment: URINE COLLECTION TIME (HRS): 24 URINE VOLUME (MILLILTERS): 2960 Performed By: #### O XAL 24HRU, U24 CA, MAG 24HRU, CITRIC UR, PHOS 24HRU, URIC 24HRU #### [facility] , #### COL T V, U24 NA, CREA24 #### [facility] [address] [place] [address] WBC,Urine 3-4 Normal 0-4 [facility] Comment on above: Order Comment: URINE COLLECTION TIME (HRS): 24 URINE VOLUME (MILLILTERS): 2960 Performed By: #### O XAL 24HRU, U24 CA, MAG 24HRU, CITRIC UR, PHOS 24HRU, URIC 24HRU #### [facility] , #### COL T V, U24 NA, CREA24 #### [address] ECG 12 lead ECGon 01-03-2024 ECG 12 lead ECG [facility] [place] [address] [place] [address] Electrocardiograph Report Signed Patient: Valentin Torre MR#: [id number] 29 : 1955 Acct:[id number] Age/Sex: 68 / M ADM Date: 01/02/24 Loc: ER Room: Type: [facility] ER Attending Dr: Ordering Provider: Edenilson Reinoso Jr, MD Date of Service: 01/03/24 ECG/ECG 12 lead ECG: Abdominal Pain Copies to: Test Reason : Blood Pressure : 155/100 mmHG Vent. Rate : 074 BPM Atrial Rate : 074 BPM P-R Int : 134 ms QRS Dur : 082 ms QT Int : 388 ms P-R-T Axes : 050 -24 -02 degrees QTc Int : 430 ms Sinus rhythm with occasional premature ventricular complexes Inferior infarct , age undetermined Abnormal ECG When compared with ECG of 19-JUL-2019 08:32, premature ventricular complexes are now present Inferior infarct is now present Nonspecific T wave abnormality now evident in Anterior leads Confirmed by Bayron Tim ([id number]) on 01/06/2024 6:22:05 PM Referred By: Electronically Signed By:Bayron Tim Transcribed By: MUS Signed By Bayron Tim MD 01/06/24 1822 Normal [facility] Eosinophils Auto (Bld) [#/Vo l]Ordered By: Edenilson Reinoso on 01-03-2024 Eosinophils (Bld) [#/Vol] 0.0 10*3/uL 0.0-0.45 [facility] Eosinophils/100 WBC Auto (Bl d)Ordered By: Edenilson Reinoso on 01-03-2024 Eosinophils/100 WBC (Bld) 0.3 % . [facility] Erythrocyte distribution wid th Auto (RBC) [Ratio]Ordered By: Edenilson Reinoso on 01-03-2024 Erythrocyte distribution width (RBC) [Ratio] 14.7 % 12.0-14.8 [facility] Globulin Calc (S) [Mass/Vol] Ordered By: Edenilson Reinoso on 01-03-2024 Globulin (S) [Mass/Vol] 2.4 g/dL [facility] Glucose [Mass/volume] in Ser um or PlasmaOrdered By: Edenilson Reinoso on 01-03-2024 Glucose [Mass/Vol] 148 mg/dL 70-100 [facility] Comment on above: ADA recommended refe rence rangeRandom Glucose Reference Range is dependent on time and content of last meal. Glucose of more than 200 mg/dL in a nonstressed, ambulatory subject supports the diagnosis of Diabetes Mellitus. Hematocrit Auto (Bld) [Volum e fraction]Ordered By: Edenilson Reinoso on 01-03-2024 Hematocrit (Bld) [Volume fraction] 49.3 % 38.8-50.0 [facility] Hemoglobin [Mass/volume] in BloodOrdered By: Edenilson Reinoso on 01-03-2024 Hemoglobin (Bld) [Mass/Vol] 16.6 g/dL 13.0-17.0 [facility] Ketones Auto test strip (U) [Mass/Vol]Ordered By: Edenilson Reinoso on 01-03-2024 Ketones (U) [Mass/Vol] Trace Negative [facility] - UrinalysisOrder ed By: Edenilson Reinoso on 01-03-2024 Hyaline casts LM Ql (Urine sed) 0-8 [LPF] 0-8 [facility] Leukocytes [#/volume] correc nat for nucleated erythrocytes in Blood by Automated counOrdered By: Edenilson Reinoso on 01-03-2024 WBC corrected for nucl RBC Auto (Bld) [#/Vol] 16.9 10*3/uL 4.1-10.5 [facility] Lymphocytes Auto (Bld) [#/Vo l]Ordered By: Edenilson Reinoso on 01-03-2024 Lymphocytes (Bld) [#/Vol] 0.8 10*3/uL 1.00-4.8 [facility] Lymphocytes/100 WBC Auto (Bl d)Ordered By: Edenilson Reinoso on 01-03-2024 Lymphocytes/100 WBC (Bld) 4.8 % . [facility] MCH Auto (RBC) [Entitic mass ]Ordered By: Edenilson Reinoso on 01-03-2024 MCH (RBC) [Entitic mass] 30.1 pg 27.5-35.2 [facility] MCHC Auto (RBC) [Mass/Vol]Or dered By: Edenilson Reinoso on 01-03-2024 MCHC (RBC) [Mass/Vol] 33.7 g/dL 32.5-35.6 [facility] MCV Auto (RBC) [Entitic vol] Ordered By: Edenilson Reinoso on 01-03-2024 MCV (RBC) [Entitic vol] 89.3 fL 83.5-101 [facility] Monocyte distribution width [Entitic volume] in Blood by AutomatedOrdered By: Edenilson Reinoso on 01-03-2024 Monocyte distribution width Auto (Bld) [Entitic vol] 20.70 % 0.00-20.00 [facility] Comment on above: For adults in ED, MD W > 20.0 may be associated with a higher risk of sepsis during the first 12 hrs of hospital admission Monocytes Auto (Bld) [#/Vol] Ordered By: Edenilson Reinoso on 01-03-2024 Monocytes (Bld) [#/Vol] 1.1 10*3/uL 0.0-0.8 [facility] Monocytes/100 WBC Auto (Bld) Ordered By: Edenilson Reinoso on 01-03-2024 Monocytes/100 WBC (Bld) 6.7 % . [facility] Neutrophils Auto (Bld) [#/Vo l]Ordered By: Edenilson Reinoso on 01-03-2024 Neutrophils (Bld) [#/Vol] 14.9 10*3/uL 1.8-7.7 [facility] Neutrophils/100 WBC Auto (Bl d)Ordered By: Edenilson Reinoso on 01-03-2024 Neutrophils/100 WBC (Bld) 88.0 % . [facility] Nitrite Test strip Ql (U)Ord ered By: Edenilson Reinoso on 01-03-2024 Nitrite Ql (U) Negative Negative [facility] No Panel InformationOrdered By: Edenilson Reinoso on 01-03-2024 Estimated GFR (CKD-EPI) > 60.0 mL/Min [facility]acy Creatinine Clearance (Chem 73.17 [facility] Nucleated erythrocytes [Pres ence] in Blood by Automated countOrdered By: Edenilson Reinoso on 01-03-2024 Nucleated RBC Auto Ql (Bld) 0.3 /100{WBC} 0-0.5 [facility] Platelet mean volume Auto (B ld) [Entitic vol]Ordered By: Edenilson Reinoso on 01-03-2024 Platelet mean volume (Bld) [Entitic vol] 8.5 fL 6.6-10.1 [facility] Platelets Auto (Bld) [#/Vol] Ordered By: Edenilson Reinoso on 01-03-2024 Platelets (Bld) [#/Vol] 229 10*3/uL 150-450 [facility] Potassium [Moles/volume] in Serum or PlasmaOrdered By: Edenilson Reinoso on 01-03-2024 Potassium [Moles/Vol] 4.4 mmol/L 3.5-5.1 [facility] Protein Auto test strip (U) [Mass/Vol]Ordered By: Edenilson Reinoso on 01-03-2024 Protein (U) [Mass/Vol] Trace mg/dL Negative [facility] Protein [Mass/volume] in Ser um or PlasmaOrdered By: Edenilson Reinoso on 01-03-2024 Protein [Mass/Vol] 7.0 g/dL 6.4-8.9 [facility] RBC Auto (Bld) [#/Vol]Ordere d By: Edenilson Reinoso on 01-03-2024 RBC (Bld) [#/Vol] 5.52 10*6/uL 3.90-5.60 [facility] Serum or plasma albumin/glob ulin mass ratioOrdered By: Edenilson Reinoso on 01-03-2024 Albumin/Globulin [Mass ratio] 1.9 {ratio} [facility] Serum or plasma anion gap de terminationOrdered By: Edenilson Reinoso on 01-03-2024 Anion gap [Moles/Vol] 15.7 mmol/L 6.0-15.0 [facility] Sodium [Moles/volume] in Ser um or PlasmaOrdered By: Edenilson Reinoso on 01-03-2024 Sodium [Moles/Vol] 138 mmol/L 136-145 [facility] Specific gravity Auto test s trip (U) [Rel density]Ordered By: Edenilson Reinoso on 01-03-2024 Specific gravity (U) [Rel density] 1.034 1.001-1.03 0 [facility] Squamous epithelial cells de tection in urine sediment by light microscopyOrdered By: Edenilson Reinoso on 01-03-2024 Epithelial cells.squamous LM Ql (Urine sed) 0-1 [HPF] 0-2 [facility] Troponin I High Sensitivityo n 01-03-2024 Troponin I High Sensitivity 7.2 pg/mL Normal 0.0-20.0 [facility] Comment on above: Result Comment: PERF ORMED BY: [place] [address] PATHOLOGIST [employer] OLMAN ALBARRAN M.D. Performed By: #### O XAL 24HRU, U24 CA, MAG 24HRU, CITRIC UR, PHOS 24HRU, URIC 24HRU #### [facility] , #### COL T V, U24 NA, CREA24 #### [address] Troponin I.cardiac [Mass/vol ume] in Serum or Plasma by Detection limit <= 0.01 ng/Ordered By: Edenilson Reinoso on 01-03-2024 Troponin I.cardiac DL <= 0.01 ng/mL [Mass/Vol] 7.2 pg/mL 0.0-20.0 [facility] Urea nitrogen [Mass/volume] in Serum or PlasmaOrdered By: Edenilson Reinoso on 01-03-2024 Urea nitrogen [Mass/Vol] 21 mg/dL 7-25 [facility] Urine bacteria detection by automated methodOrdered By: Edenilson Reinoso on 01-03-2024 Bacteria Auto Ql (U) None seen None Seen [facility] Urine clarity by refractomet ry automatedOrdered By: Edenilson Reinoso on 01-03-2024 Clarity Refractometry automated (U) Cloudy Clear [facility] Urine glucose measurement by automated test strip (mass/volume)Ordered By: Edenilson Reinoso on 01-03-2024 Glucose Auto test strip (U) [Mass/Vol] Normal mg/dL Normal [facility] Urine hemoglobin detection b y automated test stripOrdered By: Edenilson Reinoso on 01-03-2024 Hemoglobin Auto test strip Ql (U) Negative Negative [facility] Urine leukocyte esterase det ection by automated test stripOrdered By: Edenilson Reinoso on 01-03-2024 Leukocyte esterase Auto test strip Ql (U) Negative Negative [facility] Urobilinogen Auto test strip (U) [Mass/Vol]Ordered By: Edenilson Reinoso on 01-03-2024 Urobilinogen (U) [Mass/Vol] Normal mg/dL Normal [facility] WBC Auto (Bld) [#/Vol]Ordere d By: Edenilson Reinoso on 01-03-2024 WBC (Bld) [#/Vol] 16.9 10*3/uL 4.1-10.5 [facility] pH Auto test strip (U)Ordere d By: Edenilson Reinoso on 01-03-2024 pH (U) 5.0 [pH] 5.0-9.0 [facility] XR cerv spine AP/LAT/FLX/EXT on 12-30-2023 XR cerv spine AP/LAT/FLX/[place] [address] XRay Report Signed Patient: Valentin Torre MR#: [id number] [birth year] : 1955 Acct:[id number] Age/Sex: 68 / M ADM Date: 12/30/23 Loc: XD Room: Type: [facility] Attending Dr: Мария DAUGHERTY Copies to: WILLOW Barba Ordering Provider: WILLOW Barba Date of Service: 12/30/23 XR/XR cerv spine AP/LAT/FLX/EXT: M54.12 AP with lateral neutral, flexion and extension views of thecervical spine HISTORY: Difficulty bending to the RIGHT. Numbness and tingling of the RIGHT hand. COMPARISON: None POSTOPERATIVE CHANGES: None BONY ALIGNMENT: Straightening HYPERMOBILITY::No hypermobility LISTHESIS:Mild degenerative listhesis. FRACTURE: None DISC DEGENERATION: Moderate cervical spondylosis greatest at C6-7 level. FACETS: Multilevel facet degeneration. FORAMEN: Not assessed DENS: Intact CRANIOCERVICAL JUNCTION: Unremarkable SOFT TISSUES: Unremarkable XR/XR cerv spine AP/LAT/FLX/EXT IMPRESSION: No hypermobility. Straightening with mild degenerative listhesis. Multilevel degeneration greatest at the C6-7 level. Impression dictated by: Audie Cortes M.D.12/30/2023 3:38 PM Dictation Location: [place] [address] Transcribed By: [facility] 12/30/23 1538 Dictated By: Audie Cortes DO 12/30/23 1535 Signed By: 12/30/23 1538 [facility] XR lumbar spine 6V w bending on 12-30-2023 XR lumbar spine 6V w bending [facility] [place] [address] [place] [address] XRay Report Signed Patient: Valentin Torre MR#: [id number] [birth year] : 1955 Acct:[id number] Age/Sex: 68 / M ADM Date: 12/30/23 Loc: X Room: Type: [facility] Attending Dr: Мария Hernandez NP-C Copies to: WILLOW Barba Ordering Provider: WILLOW Barba Date of Service: 12/30/23 XR/XR lumbar spine 6V w bending: M48.061 6 views of the Lumbar Spinewith bending HISTORY: Low back pain. Difficulty bending to the RIGHT. COMPARISON: 12/15/23 POSTSURGICAL CHANGES: Stable L4-5 fusion. No hardware failure. BONY ALIGNMENT: Stable HYPERMOBILITY:No hypermobility LISTHESIS:Similar mild degenerative listhesis. FRACTURE: None DEGENERATIVE CHANGES: Extensive L2-3 spondylosis redemonstrated. Extensive multilevel facet degeneration. SOFT TISSUES: Unremarkable BONY MINERALIZATION:Adequate XR/XR lumbar spine 6V w bending IMPRESSION: No hypermobility. Similar bony alignment and degeneration. Stable postsurgical change. Impression dictated by: Audie Cortes M.D.12/30/2023 3:44 PM Dictation Location: [place] [address] Transcribed By: [facility] 12/30/23 1544 Dictated By: Audie Cortes DO 12/30/23 1540 Signed By: 12/30/23 154 [facility] XR lumbar spine 2-3V*on 11-22 XR lumbar spine 2-3V* [facility] [place] [address] [place] [address] XRay Report Signed Patient: Valentin Torre MR#: [id number] [birth year] : 1955 Acct:[id number] Age/Sex: 68 / M ADM Date: 12/15/23 Loc: XD Room: Type: [facility] Attending Dr: Sascha Sutton DO Copies to: Sascha Sutton DO Ordering Provider: Sascha Sutton DO Date of Service: 12/15/23 XR/XR lumbar spine 2-3V*: M54.50 2 views Lumbar Spine HISTORY: Low back pain for one month COMPARISON: 02/04/2020 POSTSURGICAL CHANGES: L4-5 posterior interbody fusion changes. BONY ALIGNMENT: Stable HYPERMOBILITY:No bending imaging. LISTHESIS:Similar mild L4-5 anterolisthesis. FRACTURE: None DEGENERATIVE CHANGES: Progressive L2-3 spondylosis. Similar multilevel spondylosis. Lower lumbar hypertrophic facet changes. SOFT TISSUES: Unremarkable BONY MINERALIZATION:Adequate XR/XR lumbar spine 2-3V* IMPRESSION: Stable postsurgical changes. No hardware failure. Progressive extensive L2-3 spondylosis. Impression dictated by: Audie Cortes M.D.12/15/2023 2:24 PM Dictation Location: [facility]- Transcribed By: [facility] 12/15/23 1424 Dictated By: Audie Cortes DO 12/15/23 1402 Signed By: 12/15/23 142 [facility] COMPREHENSIVE METABOLIC PANE Vivek 12-14-2023 Albumin [Mass/Vol] 4.5 g/dL Normal 3.2-5.3 [facility] Comment on above: Performed By: #### Dannie MALDONADO, 59846-5 #### [facility] ([id number]) [address], [address] [place] [address] ALP [Catalytic activity/Vol] 83 U/L Normal 39-130 [facility] Comment on above: Performed By: #### Dannie MALDONADO, 89451-6 #### [facility] ([id number]) [address], [address] [place] [address] ALT [Catalytic activity/Vol] 25 U/L Normal 0-40 [facility] Comment on above: Performed By: #### Dannie MALDONADO, 11691-5 #### [facility] ([id number]) [address], [address] [place] [address] Anion gap [Moles/Vol] 11 mmol/L Normal 5-15 [facility] Comment on above: Performed By: #### Dannie MALDONADO, 64887-4 #### [facility] ([id number]) [address], [address] [place] [address] AST [Catalytic activity/Vol] 18 U/L Normal 0-41 [facility] Comment on above: Performed By: #### Dannie MALDONADO, 14054-8 #### [facility] ([id number]) [address], [address] [place] [address] Bilirubin [Mass/Vol] 0.8 mg/dL Normal 0.3-1.2 [facility] Comment on above: Performed By: #### Dannie MALDONADO, 15623-2 #### [facility] ([id number]) [address], [address] [place] [address] Calcium [Mass/Vol] 9.1 mg/dL Normal 8.5-10.5 [facility] Comment on above: Performed By: #### Dannie MALDONADO, 55868-8 #### [facility] ([id number]) [address], [address] [place] [address] Chloride [Moles/Vol] 105 mmol/L Normal 98-109 [facility] Comment on above: Performed By: #### Dannie MALDONADO, 30006-8 #### [facility] ([id number]) [address], [address] [place] [address] CO2 [Moles/Vol] 23 mmol/L Normal 22-32 [facility] Comment on above: Performed By: #### Dannie MALDONADO, 47641-5 #### [facility] ([id number]) [address], [address] [place] [address] Creatinine [Mass/Vol] 0.89 mg/dL Normal 0.60-1.30 [facility] Comment on above: Result Comment: METH OD TRACEABLE TO IDMS STANDARD Performed By: #### Dannie MALDONADO, 03661-1 #### [facility] ([id number]) [address] [address] [place] [address] eGFR (CKD-EPI) NON-RACE DEPENDENT >90 Normal >59 [facility] Comment on above: Result Comment: Reported eGFR is based on the CKD-EPI 1 equation that does not use a race coefficient. Performed By: #### Dannie MALDONADO, 61588-2 #### [facility] ([id number]) [address], [address] [place] [address] Glucose [Mass/Vol] 96 mg/dL Normal 65-99 [facility] Comment on above: Performed By: #### Dannie MALDONADO, 06683-0 #### [facility] ([id number]) [address], [address] [place] [address] Potassium [Moles/Vol] 4.0 mmol/L Normal 3.5-5.0 [facility] Comment on above: Performed By: #### Dannie MALDONADO, 47172-9 #### [facility] ([id number]) [address], [address] [place] [address] Protein [Mass/Vol] 7.1 g/dL Normal 6.0-8.0 [facility] Comment on above: Performed By: #### Dannie MALDONADO, 28539-2 #### [facility] ([id number]) [address], [address] [place] [address] Sodium [Moles/Vol] 139 mmol/L Normal 134-146 [facility] Comment on above: Performed By: #### Dannie MALDONADO, 35960-8 #### [facility] ([id number]) [address], [address] [place] [address] Urea nitrogen [Mass/Vol] 25 mg/dL Normal 5-27 [facility] Comment on above: Performed By: #### Dannie MALDONADO, 85589-1 #### [facility] ([id number]) [address], [address] [place] [address] Comprehensive metabolic pane vivek 12-14-2023 Albumin [Mass/Vol] 4.5 g/dL 3.2 - 5.3 g/dL [facility] ALP [Catalytic activity/Vol] 83 U/L 39 - 130 U/L [facility] ALT No additional P-5'-P [Catalytic activity/Vol] 25 U/L 0 - 40 U/L [facility] Anion gap [Moles/Vol] 11 mmol/L 5 - 15 mmol/L [facility] AST [Catalytic activity/Vol] 18 U/L 0 - 41 U/L [facility] Bilirubin [Mass/Vol] 0.8 mg/dL 0.3 - 1 .2 mg/dL [facility] Calcium [Mass/Vol] 9.1 mg/dL 8.5 - 10. 5 mg/dL [facility] Chloride [Moles/Vol] 105 mmol/L 98 - 10 9 mmol/L [facility] CO2 [Moles/Vol] 23 mmol/L 22 - 32 mmol/L [facility] Creatinine [Mass/Vol] 0.89 mg/dL 0.60 - 1.30 mg/dL [facility] Comment on above: METHOD TRACEABLE TO [facility] STANDARD eGFR (CKD-EPI)non-race dependent - PINF [facility] Comment on above: Reported eGFR is based on the CKD-EPI 2020 equation that does not use a race coefficient. Glucose [Mass/Vol] 96 mg/dL 65 - 99 mg/dL [facility] Potassium [Moles/Vol] 4.0 mmol/L 3.5 - 5.0 mmol/L [facility] Protein [Mass/Vol] 7.1 g/dL 6.0 - 8.0 g/dL [facility] Sodium [Moles/Vol] 139 mmol/L 134 - 146 mmol/L [facility] Urea nitrogen [Mass/Vol] 25 mg/dL 5 - 27 mg/dL [facility] Lipid 1996 panelon Cholesterol [Mass/Vol] 124 mg/dL Low 150 - 200 mg/dL [facility] Cholesterol in HDL [Mass/Vol] 46 mg/dL 39 - PINF mg/dL [facility] Comment on above: HDL <40 mg/dL - High Risk HDL > or = 40mg/dL- Desirable HDL >60 mg/dL - Negative Risk Cholesterol in LDL [Mass/Vol] 57 mg/dL NINF - 130 mg/dL [facility] Comment on above: LDL <100 mg/dL - Desirable LDL >160 mg/dL - High Risk Cholesterol in VLDL [Mass/Vol] 21 mg/dL 0 - 30 mg/dL [facility] Cholesterol.total/Chol esterol in HDL [Mass ratio] 2.7 {ratio} 1.0 - 5.0 [facility] Interpretation and review of laboratory results Abnormal [facility] Triglyceride [Mass/Vol] 103 mg/dL 27 - 150 mg/dL [facility] Cholesterol [Mass/Vol] 124 mg/dL Low 150-200 [facility] Comment on above: Performed By: #### Dannie MALDONADO, 65271-5 #### [facility] ([id number]) [address], [facility] [address] [place] [address] Cholesterol in HDL [Mass/Vol] 46 mg/dL Normal >39 [facility] Comment on above: Result Comment: HDL <40 mg/dL - High Risk HDL > or = 40mg/dL- Desirable HDL >60 mg/dL - Negative Risk Performed By: #### Dannie MALDONADO, 78319-3 #### [facility] ([id number]) [address], [address] [place] [address] Cholesterol in LDL [Mass/Vol] 57 mg/dL Normal <130 [facility] Comment on above: Result Comment: LDL <100 mg/dL - Desirable LDL >160 mg/dL - High Risk Performed By: #### Dannie MALDONADO, 99074-6 #### [facility] ([id number]) [address], [facility] [address] [place] [address] Cholesterol in VLDL [Mass/Vol] 21 mg/dL Normal 0-30 [facility] Comment on above: Performed By: #### Dannie MALDONADO, 57950-1 #### [facility] ([id number]) [address], [facility] [address] [place] [address] CHOLESTEROL:HDL 2.7 Normal 1.0-5.0 [facility] Comment on above: Performed By: #### Dannie MALDONADO, 50304-5 #### [facility] ([id number]) [address] [facility] [place] [address] Triglyceride [Mass/Vol] 103 mg/dL Normal 27-150 [facility] Comment on above: Performed By: #### C , 85299-8 #### [facility] ([id number]) [address] [facility] [place] [address] No Panel Informationon 12-14 [facility] Alanine aminotransferase [En zymatic activity/volume] in Serum or PlasmaOrdered By: Romel Davis on 12-08-2023 ALT [Catalytic activity/Vol] 31 U/L 7-52 [facility] Albumin [Mass/volume] in Ser um or Plasma by Bromocresol green (BCG) dye binding methoOrdered By: Romel Davis on 12-08-2023 Albumin BCG dye [Mass/Vol] 4.3 g/dL 3.5-5.7 [facility] Alkaline phosphatase [Enzyma tic activity/volume] in Serum or PlasmaOrdered By: Romel Davis on 12-08-2023 ALP [Catalytic activity/Vol] 80 U/L 34-104 [facility] Aspartate aminotransferase [ Enzymatic activity/volume] in Serum or PlasmaOrdered By: Romel Davis on 12-08-2023 AST [Catalytic activity/Vol] 19 U/L 13-39 [facility] Automated erythrocytes count in urine sediment (number/area)Ordered By: Romel Davis on 12-08-2023 RBC Auto (Urine sed) [#/Area] 1-2 [HPF] 0-4 [facility] Automated leukocytes count i n urine sediment (number/area)Ordered By: Romel Davis on 12-08-2023 WBC Auto (Urine sed) [#/Area] 0-1 [HPF] 0-4 [facility] Basophils Auto (Bld) [#/Vol] Ordered By: Romel Davis on 12-08-2023 Basophils (Bld) [#/Vol] 0.0 10*3/uL 0.0-0.2 [facility] Basophils/100 WBC Auto (Bld) Ordered By: Romel Davis on 12-08-2023 Basophils/100 WBC (Bld) 0.5 % . [facility] Bilirubin Auto test strip Ql (U)Ordered By: Romel Davis on 12-08-2023 Bilirubin Ql (U) Negative Negative [facility] Bilirubin.total [Mass/volume ] in Serum or PlasmaOrdered By: Romel Davis on 12-08-2023 Bilirubin [Mass/Vol] 0.6 mg/dL 0.3-1.0 [facility] Calcium [Mass/volume] in Ser um or PlasmaOrdered By: Romel Davis on 12-08-2023 Calcium [Mass/Vol] 9.4 mg/dL 8.6-10.3 [facility] Carbon dioxide, total [Moles /volume] in Serum or PlasmaOrdered By: Romel Davis on 12-08-2023 CO2 [Moles/Vol] 25.7 mmol/L 21.0-31.0 [facility] Chloride [Moles/volume] in S ace or PlasmaOrdered By: Romel Davis on 12-08-2023 Chloride [Moles/Vol] 105 mmol/L 98-107 [facility] Complement C3on 12-08-2023 Complement C3 122 mg/dL Normal 82-167 [facility] Comment on above: Result Comment: Perf ormed at: - [facility] [address] [id number] Maintenance Machinist: Richy Ardon PhD, Phone: [phone] Performed By: #### O XAL 24HRU, U24 CA, MAG 24HRU, CITRIC UR, PHOS 24HRU, URIC 24HRU #### [facility] , #### COL T V, U24 NA, CREA24 #### [address] Complement C4on 12-08-2023 Complement C4 14 mg/dL Normal 12-38 [facility] Comment on above: Result Comment: PERF ORMED BY: [place] [address] PATHOLOGIST YEAST CAKE CUTTER OLMAN ALBARRAN M.D. Performed By: #### O XAL 24HRU, U24 CA, MAG 24HRU, CITRIC UR, PHOS 24HRU, URIC 24HRU #### [facility] , #### COL T V, U24 NA, CREA24 #### [address] Complement Total (CH50)on Complement Total (CH50) 58 Normal >41 [facility] Comment on above: Result Comment: Age Male Female 1 - 30 days Not Estab. Not Estab. 31 days - 6 months >32 >20 7 months - 17 years >39 >39 >17 years >41 >41 NOTE: The adult ( >17 years ) reference interval range is used to flag abnormals on this report. If the patient is 17 years old or younger, use the table above to determine out of range values. Performed at: [facility] [id number] Maintenance Machinist: Richy Ardon PhD, Phone: [phone] PERFORMED BY: [place] [address] PATHOLOGIST YEAST CAKE CUTTER OLMAN ALBARRAN M.D. Performed By: #### O XAL 24HRU, U24 CA, MAG 24HRU, CITRIC UR, PHOS 24HRU, URIC 24HRU #### [facility] , #### COL T V, U24 NA, CREA24 #### [address] Complete Blood Count Auto Di ffon 12-08-2023 Basophils (Bld) [#/Vol] 0.0 10*3/uL Normal 0.0-0.2 [facility] Comment on above: Performed By: #### O XAL 24HRU, U24 CA, MAG 24HRU, CITRIC UR, PHOS 24HRU, URIC 24HRU #### [facility] , #### COL T V, U24 NA, CREA24 #### [address] Basophils/100 WBC (Bld) 0.5 % Normal . [facility] Comment on above: Performed By: #### O XAL 24HRU, U24 CA, MAG 24HRU, CITRIC UR, PHOS 24HRU, URIC 24HRU #### [facility] , #### COL T V, U24 NA, CREA24 #### [address] Eosinophils (Bld) [#/Vol] 0.1 10*3/uL Normal 0.0-0.45 [facility] Comment on above: Performed By: #### O XAL 24HRU, U24 CA, MAG 24HRU, CITRIC UR, PHOS 24HRU, URIC 24HRU #### [facility] , #### COL T V, U24 NA, CREA24 #### [address] Eosinophils/100 WBC (Bld) 1.2 % Normal . [facility] Comment on above: Performed By: #### O XAL 24HRU, U24 CA, MAG 24HRU, CITRIC UR, PHOS 24HRU, URIC 24HRU #### [facility] , #### COL T V, U24 NA, CREA24 #### [address] Erythrocyte distribution width (RBC) [Ratio] 14.5 % Normal 12.0-14.8 [facility] Comment on above: Performed By: #### O XAL 24HRU, U24 CA, MAG 24HRU, CITRIC UR, PHOS 24HRU, URIC 24HRU #### [facility] , #### COL T V, U24 NA, CREA24 #### [address] Hematocrit (Bld) [Volume fraction] 46.1 % Normal 38.8-50.0 [facility] Comment on above: Performed By: #### O XAL 24HRU, U24 CA, MAG 24HRU, CITRIC UR, PHOS 24HRU, URIC 24HRU #### [facility] , #### COL T V, U24 NA, CREA24 #### [address] Hemoglobin (Bld) [Mass/Vol] 15.9 g/dL Normal 13.0-17.0 [facility] Comment on above: Performed By: #### O XAL 24HRU, U24 CA, MAG 24HRU, CITRIC UR, PHOS 24HRU, URIC 24HRU #### [facility] , #### COL T V, U24 NA, CREA24 #### [address] Lymphocytes (Bld) [#/Vol] 1.0 10*3/uL Normal 1.00-4.8 [facility] Comment on above: Performed By: #### O XAL 24HRU, U24 CA, MAG 24HRU, CITRIC UR, PHOS 24HRU, URIC 24HRU #### [facility] , #### COL T V, U24 NA, CREA24 #### [address] Lymphocytes/100 WBC (Bld) 15.1 % Normal . [facility] Comment on above: Performed By: #### O XAL 24HRU, U24 CA, MAG 24HRU, CITRIC UR, PHOS 24HRU, URIC 24HRU #### [facility] , #### COL T V, U24 NA, CREA24 #### [address] MCH (RBC) [Entitic mass] 30.7 pg Normal 27.5-35.2 [facility] Comment on above: Performed By: #### O XAL 24HRU, U24 CA, MAG 24HRU, CITRIC UR, PHOS 24HRU, URIC 24HRU #### [facility] , #### COL T V, U24 NA, CREA24 #### [address] MCV (RBC) [Entitic vol] 89.0 fL Normal 83.5-101 [facility] Comment on above: Performed By: #### O XAL 24HRU, U24 CA, MAG 24HRU, CITRIC UR, PHOS 24HRU, URIC 24HRU #### [facility] , #### COL T V, U24 NA, CREA24 #### [address] Mean Corpuscular HGB Conc 34.5 g/dL Normal 32.5-35.6 [facility] Comment on above: Performed By: #### O XAL 24HRU, U24 CA, MAG 24HRU, CITRIC UR, PHOS 24HRU, URIC 24HRU #### [facility] , #### COL T V, U24 NA, CREA24 #### [address] Monocytes (Bld) [#/Vol] 0.9 10*3/uL High 0.0-0.8 [facility] Comment on above: Performed By: #### O XAL 24HRU, U24 CA, MAG 24HRU, CITRIC UR, PHOS 24HRU, URIC 24HRU #### [facility] , #### COL T V, U24 NA, CREA24 #### [address] Monocytes/100 WBC (Bld) 14.0 % Normal . [facility] Comment on above: Performed By: #### O XAL 24HRU, U24 CA, MAG 24HRU, CITRIC UR, PHOS 24HRU, URIC 24HRU #### [facility] , #### COL T V, U24 NA, CREA24 #### [address] Neutrophils (Bld) [#/Vol] 4.4 10*3/uL Normal 1.8-7.7 [facility] Comment on above: Performed By: #### O XAL 24HRU, U24 CA, MAG 24HRU, CITRIC UR, PHOS 24HRU, URIC 24HRU #### [facility] , #### COL T V, U24 NA, CREA24 #### [address] Neutrophils/100 WBC (Bld) 69.2 % Normal . [facility] Comment on above: Performed By: #### O XAL 24HRU, U24 CA, MAG 24HRU, CITRIC UR, PHOS 24HRU, URIC 24HRU #### [facility] , #### COL T V, U24 NA, CREA24 #### [address] NRBC% 0.1 /100{WBC} Normal 0-0.5 [facility] Comment on above: Performed By: #### O XAL 24HRU, U24 CA, MAG 24HRU, CITRIC UR, PHOS 24HRU, URIC 24HRU #### [facility] , #### COL T V, U24 NA, CREA24 #### [address] Platelet mean volume (Bld) [Entitic vol] 8.7 fL Normal 6.6-10.1 [facility] Comment on above: Performed By: #### O XAL 24HRU, U24 CA, MAG 24HRU, CITRIC UR, PHOS 24HRU, URIC 24HRU #### [facility] , #### COL T V, U24 NA, CREA24 #### [address] Platelets (Bld) [#/Vol] 203 10*3/uL Normal 150-450 [facility] Comment on above: Performed By: #### O XAL 24HRU, U24 CA, MAG 24HRU, CITRIC UR, PHOS 24HRU, URIC 24HRU #### [facility] , #### COL T V, U24 NA, CREA24 #### [address] RBC (Bld) [#/Vol] 5.18 10*6/uL Normal 3.90-5.60 [facility] Comment on above: Performed By: #### O XAL 24HRU, U24 CA, MAG 24HRU, CITRIC UR, PHOS 24HRU, URIC 24HRU #### [facility] , #### COL T V, U24 NA, CREA24 #### [facility] [address] [place] [address] WBC (Bld) [#/Vol] 6.4 10*3/uL Normal 4.1-10.5 [facility] Comment on above: Performed By: #### O XAL 24HRU, U24 CA, MAG 24HRU, CITRIC UR, PHOS 24HRU, URIC 24HRU #### [facility] , #### COL T V, U24 NA, CREA24 #### [address] Comprehensive Metabolic Pane vivek 12-08-2023 Albumin [Mass/Vol] 4.3 g/dL Normal 3.5-5.7 [facility] Comment on above: Performed By: #### O XAL 24HRU, U24 CA, MAG 24HRU, CITRIC UR, PHOS 24HRU, URIC 24HRU #### [facility] , #### COL T V, U24 NA, CREA24 #### [facility] [address] [place] [address] Albumin/Globulin [Mass ratio] 2.2 {ratio} Normal [facility] Comment on above: Performed By: #### O XAL 24HRU, U24 CA, MAG 24HRU, CITRIC UR, PHOS 24HRU, URIC 24HRU #### [facility] , #### COL T V, U24 NA, CREA24 #### [facility] [address] [place] [address] ALP [Catalytic activity/Vol] 80 U/L Normal 34-104 [facility] Comment on above: Result Comment: PERF ORMED BY: [place] [address] PATHOLOGIST YEAST CAKE CUTTER OLMAN ALBARRAN M.D. Performed By: #### O XAL 24HRU, U24 CA, MAG 24HRU, CITRIC UR, PHOS 24HRU, URIC 24HRU #### [facility] , #### COL T V, U24 NA, CREA24 #### [address] ALT [Catalytic activity/Vol] 31 U/L Normal 7-52 [facility] Comment on above: Performed By: #### O XAL 24HRU, U24 CA, MAG 24HRU, CITRIC UR, PHOS 24HRU, URIC 24HRU #### [facility] , #### COL T V, U24 NA, CREA24 #### [address] Anion gap [Moles/Vol] 10.6 mmol/L Normal 6.0-15.0 [facility] Comment on above: Performed By: #### O XAL 24HRU, U24 CA, MAG 24HRU, CITRIC UR, PHOS 24HRU, URIC 24HRU #### [facility] , #### COL T V, U24 NA, CREA24 #### [address] AST [Catalytic activity/Vol] 19 U/L Normal 13-39 [facility] Comment on above: Performed By: #### O XAL 24HRU, U24 CA, MAG 24HRU, CITRIC UR, PHOS 24HRU, URIC 24HRU #### [facility] , #### COL T V, U24 NA, CREA24 #### [address] Bilirubin [Mass/Vol] 0.6 mg/dL Normal 0.3-1.0 [facility] Comment on above: Performed By: #### O XAL 24HRU, U24 CA, MAG 24HRU, CITRIC UR, PHOS 24HRU, URIC 24HRU #### [facility] , #### COL T V, U24 NA, CREA24 #### [address] Calcium [Mass/Vol] 9.4 mg/dL Normal 8.6-10.3 [facility] Comment on above: Performed By: #### O XAL 24HRU, U24 CA, MAG 24HRU, CITRIC UR, PHOS 24HRU, URIC 24HRU #### [facility] , #### COL T V, U24 NA, CREA24 #### [address] Chloride [Moles/Vol] 105 mmol/L Normal 98-107 [facility] Comment on above: Performed By: #### O XAL 24HRU, U24 CA, MAG 24HRU, CITRIC UR, PHOS 24HRU, URIC 24HRU #### [facility] , #### COL T V, U24 NA, CREA24 #### [address] CO2 [Moles/Vol] 25.7 mmol/L Normal 21.0-31.0 [facility] Comment on above: Performed By: #### O XAL 24HRU, U24 CA, MAG 24HRU, CITRIC UR, PHOS 24HRU, URIC 24HRU #### [facility] , #### COL T V, U24 NA, CREA24 #### [address] Creatinine [Mass/Vol] 1.00 mg/dL Normal 0.70-1.30 [facility] Comment on above: Performed By: #### O XAL 24HRU, U24 CA, MAG 24HRU, CITRIC UR, PHOS 24HRU, URIC 24HRU #### [facility] , #### COL T V, U24 NA, CREA24 #### [address] GFR/1.73 sq M.predicted MDRD (S/P/Bld) [Vol rate/Area] mL/min/{1.73_m2} Normal [facility] Comment on above: Performed By: #### O XAL 24HRU, U24 CA, MAG 24HRU, CITRIC UR, PHOS 24HRU, URIC 24HRU #### [facility] , #### COL T V, U24 NA, CREA24 #### [address] Globulin (S) [Mass/Vol] 2.0 g/dL [facility] Comment on above: Performed By: #### O XAL 24HRU, U24 CA, MAG 24HRU, CITRIC UR, PHOS 24HRU, URIC 24HRU #### [facility] , #### COL T V, U24 NA, CREA24 #### [address] Glucose [Mass/Vol] 88 mg/dL Normal 70-100 [facility] Comment on above: Result Comment: [facility] Glucose Reference Range is dependent on time and content of last meal. Glucose of more than 200 mg/dL in a nonstressed, ambulatory subject supports the diagnosis of Diabetes Mellitus. ADA recommended reference range Performed By: #### O XAL 24HRU, U24 CA, MAG 24HRU, CITRIC UR, PHOS 24HRU, URIC 24HRU #### [facility] , #### COL T V, U24 NA, CREA24 #### [address] Potassium [Moles/Vol] 4.3 mmol/L Normal 3.5-5.1 [facility] Comment on above: Performed By: #### O XAL 24HRU, U24 CA, MAG 24HRU, CITRIC UR, PHOS 24HRU, URIC 24HRU #### [facility] , #### COL T V, U24 NA, CREA24 #### [address] Protein [Mass/Vol] 6.3 g/dL Low 6.4-8.9 [facility] Comment on above: Performed By: #### O XAL 24HRU, U24 CA, MAG 24HRU, CITRIC UR, PHOS 24HRU, URIC 24HRU #### [facility] , #### COL T V, U24 NA, CREA24 #### [facility] [address] [place] [address] Sodium [Moles/Vol] 137 mmol/L Normal 136-145 [facility] Comment on above: Performed By: #### O XAL 24HRU, U24 CA, MAG 24HRU, CITRIC UR, PHOS 24HRU, URIC 24HRU #### [facility] , #### COL T V, U24 NA, CREA24 #### [facility] [address] [place] [address] Urea nitrogen [Mass/Vol] 27 mg/dL High 7-25 [facility] Comment on above: Performed By: #### O XAL 24HRU, U24 CA, MAG 24HRU, CITRIC UR, PHOS 24HRU, URIC 24HRU #### [facility] , #### COL T V, U24 NA, CREA24 #### [facility] [address] [place] [address] Creatinine [Mass/volume] in Serum or PlasmaOrdered By: Romel Davis on 12-08-2023 Creatinine [Mass/Vol] 1.00 mg/dL 0.70-1.30 [facility] Dipstick and Microscopicon 0 12-08-2023 Appearance (U) Clear Normal Clear [facility] Comment on above: Order Comment: URINE VOLUME (MILLILTERS): [id number] Performed By: #### O XAL 24HRU, U24 CA, MAG 24HRU, CITRIC UR, PHOS 24HRU, URIC 24HRU #### [facility] , #### COL T V, U24 NA, CREA24 #### [facility] [address] [place] [address] Bacteria,Urine None Seen Normal None Seen [facility] Comment on above: Order Comment: URINE VOLUME (MILLILTERS): [id number] Performed By: #### O XAL 24HRU, U24 CA, MAG 24HRU, CITRIC UR, PHOS 24HRU, URIC 24HRU #### [facility] , #### COL T V, U24 NA, CREA24 #### [facility] [address] [place] [address] Bilirubin,Urine Negative Normal Negative [facility] Comment on above: Order Comment: URINE VOLUME (MILLILTERS): 2960 Performed By: #### O XAL 24HRU, U24 CA, MAG 24HRU, CITRIC UR, PHOS 24HRU, URIC 24HRU #### [facility] , #### COL T V, U24 NA, CREA24 #### [facility] [address] [place] [address] Color (U) Yellow Normal Yellow [facility] Comment on above: Order Comment: URINE VOLUME (MILLILTERS): 2960 Performed By: #### O XAL 24HRU, U24 CA, MAG 24HRU, CITRIC UR, PHOS 24HRU, URIC 24HRU #### [facility] , #### COL T V, U24 NA, CREA24 #### [facility] [address] [place] [address] Glucose Ql (U) Normal Normal Normal [facility] Comment on above: Order Comment: URINE VOLUME (MILLILTERS): 2960 Performed By: #### O XAL 24HRU, U24 CA, MAG 24HRU, CITRIC UR, PHOS 24HRU, URIC 24HRU #### [facility] , #### COL T V, U24 NA, CREA24 #### [facility] [address] [place] [address] Hyaline Casts,Urine 0-8 Normal 0-8 [facility] Comment on above: Order Comment: URINE VOLUME (MILLILTERS): 2960 Result Comment: PERF ORMED BY: [place] [address] PATHOLOGIST [employer] OLMAN ALBARRAN M.D. Performed By: #### O XAL 24HRU, U24 CA, MAG 24HRU, CITRIC UR, PHOS 24HRU, URIC 24HRU #### [facility] , #### COL T V, U24 NA, CREA24 #### [facility] [address] [place] [address] Ketones Ql (U) Negative Normal Negative [facility] Comment on above: Order Comment: URINE VOLUME (MILLILTERS): 2960 Performed By: #### O XAL 24HRU, U24 CA, MAG 24HRU, CITRIC UR, PHOS 24HRU, URIC 24HRU #### [facility] , #### COL T V, U24 NA, CREA24 #### [address] Leukocyte esterase Test strip Ql (U) Negative Normal Negative [facility] Comment on above: Order Comment: URINE VOLUME (MILLILTERS): 2960 Performed By: #### O XAL 24HRU, U24 CA, MAG 24HRU, CITRIC UR, PHOS 24HRU, URIC 24HRU #### [facility] , #### COL T V, U24 NA, CREA24 #### [address] Nitrite,Urine Negative Normal Negative [facility] Comment on above: Order Comment: URINE VOLUME (MILLILTERS): 2960 Performed By: #### O XAL 24HRU, U24 CA, MAG 24HRU, CITRIC UR, PHOS 24HRU, URIC 24HRU #### [facility] , #### COL T V, U24 NA, CREA24 #### [facility] [address] [place] [address] Occult Blood,Urine Negative Normal Negative [facility] Comment on above: Order Comment: URINE VOLUME (MILLILTERS): 2960 Performed By: #### O XAL 24HRU, U24 CA, MAG 24HRU, CITRIC UR, PHOS 24HRU, URIC 24HRU #### [facility] , #### COL T V, U24 NA, CREA24 #### [address] pH (U) 7.0 [pH] Normal 5.0-9.0 [facility] Comment on above: Order Comment: URINE VOLUME (MILLILTERS): 2960 Performed By: #### O XAL 24HRU, U24 CA, MAG 24HRU, CITRIC UR, PHOS 24HRU, URIC 24HRU #### [facility] , #### COL T V, U24 NA, CREA24 #### [address] Protein,Urine Negative Normal Negative [facility] Comment on above: Order Comment: URINE VOLUME (MILLILTERS): 2960 Performed By: #### O XAL 24HRU, U24 CA, MAG 24HRU, CITRIC UR, PHOS 24HRU, URIC 24HRU #### [facility] , #### COL T V, U24 NA, CREA24 #### [address] RBC,Urine 1-2 Normal 0-4 [facility] Comment on above: Order Comment: URINE VOLUME (MILLILTERS): 2960 Performed By: #### O XAL 24HRU, U24 CA, MAG 24HRU, CITRIC UR, PHOS 24HRU, URIC 24HRU #### [facility] , #### COL T V, U24 NA, CREA24 #### [address] Specificy [place]ette,Urine 1.025 Normal 1.001-1.03 0 [facility] Comment on above: Order Comment: URINE VOLUME (MILLILTERS): 2960 Performed By: #### O XAL 24HRU, U24 CA, MAG 24HRU, CITRIC UR, PHOS 24HRU, URIC 24HRU #### [facility] , #### COL T V, U24 NA, CREA24 #### [address] Squamous Epithelial Cell,Urine None Seen Normal 0-2 [facility] Comment on above: Order Comment: URINE VOLUME (MILLILTERS): 2960 Performed By: #### O XAL 24HRU, U24 CA, MAG 24HRU, CITRIC UR, PHOS 24HRU, URIC 24HRU #### [facility] , #### COL T V, U24 NA, CREA24 #### [facility] [address] [place] [address] Urobilinogen,Urine Normal Normal Normal [facility] Comment on above: Order Comment: URINE VOLUME (MILLILTERS): 2960 Performed By: #### O XAL 24HRU, U24 CA, MAG 24HRU, CITRIC UR, PHOS 24HRU, URIC 24HRU #### [facility] , #### COL T V, U24 NA, CREA24 #### [facility] [address] [place] [address] WBC LM.HPF (Urine sed) [#/Area] 0 /[HPF] Normal 0-4 [facility] Comment on above: Order Comment: URINE VOLUME (MILLILTERS): 2960 Performed By: #### O XAL 24HRU, U24 CA, MAG 24HRU, CITRIC UR, PHOS 24HRU, URIC 24HRU #### [facility] , #### COL T V, U24 NA, CREA24 #### [facility] [address] [place] [address] Eosinophils Auto (Bld) [#/Vo l]Ordered By: Romel Davis on 12-08-2023 Eosinophils (Bld) [#/Vol] 0.1 10*3/uL 0.0-0.45 [facility] Eosinophils/100 WBC Auto (Bl d)Ordered By: Romel Davis on 12-08-2023 Eosinophils/100 WBC (Bld) 1.2 % . [facility] Erythrocyte Sedimentation Ra bruno 12-08-2023 ESR (Bld) [Velocity] 5 mm/h Normal 0-19 [facility] Comment on above: Result Comment: PERF ORMED BY: [place] [address] PATHOLOGIST [employer] OLMAN ABLARRAN M.D. Performed By: #### O XAL 24HRU, U24 CA, MAG 24HRU, CITRIC UR, PHOS 24HRU, URIC 24HRU #### [facility] , #### COL T V, U24 NA, CREA24 #### [address] Erythrocyte distribution wid th Auto (RBC) [Ratio]Ordered By: Romel Davis on 12-08-2023 Erythrocyte distribution width (RBC) [Ratio] 14.5 % 12.0-14.8 [facility] Erythrocyte sedimentation ra te by Photometric methodOrdered By: Romel Davis on 12-08-2023 ESR Photometric method (Bld) [Velocity] 5 mm/hr 0-19 [facility] Globulin Calc (S) [Mass/Vol] Ordered By: Romel Davis on 12-08-2023 Globulin (S) [Mass/Vol] 2.0 g/dL [facility] Glucose [Mass/volume] in Ser um or PlasmaOrdered By: Romel Davis on 12-08-2023 Glucose [Mass/Vol] 88 mg/dL 70-100 [facility] Comment on above: ADA recommended refe rence rangeRandom Glucose Reference Range is dependent on time and content of last meal. Glucose of more than 200 mg/dL in a nonstressed, ambulatory subject supports the diagnosis of Diabetes Mellitus. Hematocrit Auto (Bld) [Volum e fraction]Ordered By: Romel Davis on 12-08-2023 Hematocrit (Bld) [Volume fraction] 46.1 % 38.8-50.0 [facility] Hemoglobin [Mass/volume] in BloodOrdered By: Romel Davis on 12-08-2023 Hemoglobin (Bld) [Mass/Vol] 15.9 g/dL 13.0-17.0 [facility] Ketones Auto test strip (U) [Mass/Vol]Ordered By: Romel Davis on 12-08-2023 Ketones (U) [Mass/Vol] Negative Negative [facility] - UrinalysisOrder ed By: Romel Davis on 12-08-2023 Hyaline casts LM Ql (Urine sed) 0-8 [LPF] 0-8 [facility] Leukocytes [#/volume] correc nat for nucleated erythrocytes in Blood by Automated counOrdered By: Romel Davis on 12-08-2023 WBC corrected for nucl RBC Auto (Bld) [#/Vol] 6.4 10*3/uL 4.1-10.5 [facility] Lymphocytes Auto (Bld) [#/Vo l]Ordered By: Romel Davis on 12-08-2023 Lymphocytes (Bld) [#/Vol] 1.0 10*3/uL 1.00-4.8 [facility] Lymphocytes/100 WBC Auto (Bl d)Ordered By: Romel Davis on 12-08-2023 Lymphocytes/100 WBC (Bld) 15.1 % . [facility] MCH Auto (RBC) [Entitic mass ]Ordered By: Romel Davis on 12-08-2023 MCH (RBC) [Entitic mass] 30.7 pg 27.5-35.2 [facility] MCHC Auto (RBC) [Mass/Vol]Or dered By: Romel Davis on 12-08-2023 MCHC (RBC) [Mass/Vol] 34.5 g/dL 32.5-35.6 [facility] MCV Auto (RBC) [Entitic vol] Ordered By: Romel Davis on 12-08-2023 MCV (RBC) [Entitic vol] 89.0 fL 83.5-101 [facility] Monocytes Auto (Bld) [#/Vol] Ordered By: Romel Davis on 12-08-2023 Monocytes (Bld) [#/Vol] 0.9 10*3/uL 0.0-0.8 [facility] Monocytes/100 WBC Auto (Bld) Ordered By: Romel Davis on 12-08-2023 Monocytes/100 WBC (Bld) 14.0 % . [facility] Neutrophils Auto (Bld) [#/Vo l]Ordered By: Romel Davis on 12-08-2023 Neutrophils (Bld) [#/Vol] 4.4 10*3/uL 1.8-7.7 [facility] Neutrophils/100 WBC Auto (Bl d)Ordered By: Romel Davis on 12-08-2023 Neutrophils/100 WBC (Bld) 69.2 % . [facility] No Panel InformationOrdered By: Romel Davis on 12-08-2023 Estimated GFR (CKD-EPI) > 60.0 mL/Min [facility] Creatinine Clearance (Chem N/A [facility] Total Complement (CH50) 58 U/mL >41 [facility] Comment on above: Age Male Female 1 - 30 days Not Estab. Not Estab. 31 days - 6 months >32 >20 7 months - 17 years >39 >39 >17 years >41 >41 NOTE: The adult ( >17 years ) reference interval range is used to flag abnormals on this report. If the patient is 17 years old or younger, use the table above to determine out of range values.Performed at: [place] [id number] Director: Richy Ardon PhD, Phone: [phone] Nucleated erythrocytes [Pres ence] in Blood by Automated countOrdered By: Romel Davis on 12-08-2023 Nucleated RBC Auto Ql (Bld) 0.1 /100{WBC} 0-0.5 [facility] Platelet mean volume Auto (B ld) [Entitic vol]Ordered By: Romel Davis on 12-08-2023 Platelet mean volume (Bld) [Entitic vol] 8.7 fL 6.6-10.1 [facility] Platelets Auto (Bld) [#/Vol] Ordered By: Romel Davis on 12-08-2023 Platelets (Bld) [#/Vol] 203 10*3/uL 150-450 [facility] Potassium [Moles/volume] in Serum or PlasmaOrdered By: Romel Davis on 12-08-2023 Potassium [Moles/Vol] 4.3 mmol/L 3.5-5.1 [facility] Protein Auto test strip (U) [Mass/Vol]Ordered By: Romel Davis on 12-08-2023 Protein (U) [Mass/Vol] Negative Negative [facility] Protein [Mass/volume] in Ser um or PlasmaOrdered By: Romel Davis on 12-08-2023 Protein [Mass/Vol] 6.3 g/dL 6.4-8.9 [facility] RBC Auto (Bld) [#/Vol]Ordere d By: Romel Davis on 12-08-2023 RBC (Bld) [#/Vol] 5.18 10*6/uL 3.90-5.60 [facility] Serum or plasma albumin/glob ulin mass ratioOrdered By: Romel Davis on 12-08-2023 Albumin/Globulin [Mass ratio] 2.2 {ratio} [facility] Serum or plasma anion gap de terminationOrdered By: Romel Davis on 12-08-2023 Anion gap [Moles/Vol] 10.6 mmol/L 6.0-15.0 [facility] Serum or plasma complement C 3 measurement (mass/volume)Ordered By: Romel Davis on 12-08-2023 Complement C3 [Mass/Vol] 122 mg/dL 82-167 [facility] Comment on above: Performed at: [place] [id number] Director: Richy Ardon PhD, Phone: [phone] Serum or plasma complement C 4 measurement (mass/volume)Ordered By: Romel Davis on 12-08-2023 Complement C4 [Mass/Vol] 14 mg/dL 12-38 [facility] Sodium [Moles/volume] in Ser um or PlasmaOrdered By: Romel Davis on 12-08-2023 Sodium [Moles/Vol] 137 mmol/L 136-145 [facility] Squamous epithelial cells de tection in urine sediment by light microscopyOrdered By: Romel Davis on 12-08-2023 Epithelial cells.squamous LM Ql (Urine sed) None seen [HPF] 0-2 [facility] Urea nitrogen [Mass/volume] in Serum or PlasmaOrdered By: Romel Davis on 12-08-2023 Urea nitrogen [Mass/Vol] 27 mg/dL 7-25 [facility] Urine appearanceOrdered By: Romel Davis on 12-08-2023 Appearance (U) Clear Clear [facility] Urine bacteria detection by automated methodOrdered By: Romel Davis on 12-08-2023 Bacteria Auto Ql (U) None seen None Seen [facility] Urine colorOrdered By: Manuel Davis on 12-08-2023 Color (U) Yellow Yellow [facility] Urine glucose measurement by automated test strip (mass/volume)Ordered By: Romel Davis on 12-08-2023 Glucose Auto test strip (U) [Mass/Vol] Normal mg/dL Normal [facility] Urine hemoglobin detection b y automated test stripOrdered By: Romel Davis on 12-08-2023 Hemoglobin Auto test strip Ql (U) Negative Negative [facility] Urine leukocyte esterase det ection by automated test stripOrdered By: Romel Davis on 12-08-2023 Leukocyte esterase Auto test strip Ql (U) Negative Negative [facility] Urine nitrite detection by a utomated test stripOrdered By: Romel Davis on 12-08-2023 Nitrite Auto test strip Ql (U) Negative Negative [facility] Urobilinogen Auto test strip (U) [Mass/Vol]Ordered By: Romel Davis on 12-08-2023 Urobilinogen (U) [Mass/Vol] Normal mg/dL Normal [facility] WBC Auto (Bld) [#/Vol]Ordere d By: Romel Davis on 12-08-2023 WBC (Bld) [#/Vol] 6.4 10*3/uL 4.1-10.5 [facility] pH Auto test strip (U)Ordere d By: Romel Davis on 12-08-2023 pH (U) 1.025 [pH] 1.001-1.03 0 [facility] pH (U) 7.0 [pH] 5.0-9.0 [facility] Lab Reportson 10-21-2023 Lab Reports [id number] Normal [facility] Carbon dioxide, total [Moles /volume] in Serum or PlasmaOrdered By: Zac Muniz on 10-20-2023 CO2 [Moles/Vol] 23.8 mmol/L 21.0-31.0 [facility] Chloride [Moles/volume] in S ace or PlasmaOrdered By: Zac Muniz on 10-20-2023 Chloride [Moles/Vol] 107 mmol/L 98-107 [facility] Electrolyteson 10-20-2023 Anion gap [Moles/Vol] 12.3 mmol/L Normal 6.0-15.0 [facility] Comment on above: Result Comment: PERF ORMED BY: [place] [address] PATHOLOGIST [employer] OLMAN ALBARRAN M.D. Performed By: #### O XAL 24HRU, U24 CA, MAG 24HRU, CITRIC UR, PHOS 24HRU, URIC 24HRU #### [facility] , #### COL T V, U24 NA, CREA24 #### [facility] [address] [place] [address] Chloride [Moles/Vol] 107 mmol/L Normal 98-107 [facility] Comment on above: Performed By: #### O XAL 24HRU, U24 CA, MAG 24HRU, CITRIC UR, PHOS 24HRU, URIC 24HRU #### [facility] , #### COL T V, U24 NA, CREA24 #### [facility] [address] [place] [address] CO2 [Moles/Vol] 23.8 mmol/L Normal 21.0-31.0 [facility] Comment on above: Performed By: #### O XAL 24HRU, U24 CA, MAG 24HRU, CITRIC UR, PHOS 24HRU, URIC 24HRU #### [facility] , #### COL T V, U24 NA, CREA24 #### [facility] [address] [place] [address] [place] Potassium [Moles/Vol] 4.1 mmol/L Normal 3.5-5.1 [facility] Comment on above: Performed By: #### O XAL 24HRU, U24 CA, MAG 24HRU, CITRIC UR, PHOS 24HRU, URIC 24HRU #### [facility] , #### COL T V, U24 NA, CREA24 #### [facility] [address] [place] [address] [place] Sodium [Moles/Vol] 139 mmol/L Normal 136-145 [facility] Comment on above: Performed By: #### O XAL 24HRU, U24 CA, MAG 24HRU, CITRIC UR, PHOS 24HRU, URIC 24HRU #### [facility] , #### COL T V, U24 NA, CREA24 #### [facility] [address] Potassium [Moles/volume] in Serum or PlasmaOrdered By: Zac Muniz on 10-20-2023 Potassium [Moles/Vol] 4.1 mmol/L 3.5-5.1 [facility] Serum or plasma anion gap de terminationOrdered By: Zac Muniz on 10-20-2023 Anion gap [Moles/Vol] 12.3 mmol/L 6.0-15.0 [facility] Sodium [Moles/volume] in Ser um or PlasmaOrdered By: Zac Muniz on 10-20-2023 Sodium [Moles/Vol] 139 mmol/L 136-145 [facility] Lab Reportson 09-21-2023 Lab Reports [id number] Normal [facility] Ambulatory Visit Summaryon 1 Ambulatory Visit Summary VALENTIN TORRE :1955 Visit Date:09/19/2023 Ambulatory Visit Instructions Your Diagnosis Kidney stones History of kidney stones Tests Performed Urnls Dip Stick Auto w/o Microscopy POC 05618 XR Abdomen 1 View -- Results Pending -- Please visit your patient portal for your results or contact your primary care physician. Your Care Team Attending Physician - FLAVIO ONEAL, Zac De Oliveira Primary Care Physician - SASCHA SUTTON DO This Is Your Medications List Contact prescribing physician if questions or concerns acetaminophen (acetaminophen 500 mg Tab) aspirin (aspirin 81 mg oral capsule) fexofenadine-pseudoephedrin e (Seema D OTC 24HR) folic acid (folic acid 1 mg Tab) hydrochlorothiazide-lisinop ril (hydrochlorothiazide-lisino pril 12.5 mg-20 mg Tab) hydroxychloroquine (hydroxychloroquine 200 mg Tab) ketorolac (ketorolac 10 mg Tab) leflunomide (leflunomide 10 mg oral tablet) methotrexate (methotrexate 1 g injection) methylPREDNISolone (Medrol 4 mg Tab) montelukast (montelukast 10 mg Tab) nabumetone (nabumetone 750 mg Tab) ocular lubricant ([employer] Therapy) omeprazole (omeprazole 40 mg Cap-DR) prednisoLONE simvastatin (simvastatin 20 mg Tab) tramadol (traMADOL 50 mg Tab) Procedures Performed Arthroplasty of knee, Arthroscopy of knee, Carpal tunnel release, Cleft palate, Colonoscopy, EGD - Esophagogastroduodenoscopy, Procedure on shoulder, Procedure on spine, Skin cancer, Tympanoplasty. Discharge Vitals Heart Rate (Peripheral) 64 Respiratory Rate 16 Blood Pressure 126/77 Height 173 cm Height 68 in Weight 97.5 kg Weight 214.5 lb BMI 32.58 What to do next You Need to Schedule the Following Appointments Follow Up with FLAVIO ONEAL, EMILIA Richey When: Where: [facility] [address] , [place] [address] [phone] Medications What How Much When Instructions Unchanged acetaminophen (acetaminophen 500 mg Tab) By Mouth Every 6 hours Contact prescribing physician if questions or concerns Unchanged aspirin (aspirin 81 mg oral capsule) By Mouth Every 24 hours Contact prescribing physician if questions or concerns Unchanged fexofenadine-pseudoephedrin e (Seema D OTC 24HR) By Mouth Every day Contact prescribing physician if questions or concerns Unchanged folic acid (folic acid 1 mg Tab) By Mouth Every day Contact prescribing physician if questions or concerns Unchanged hydrochlorothiazide-lisinop ril (hydrochlorothiazide-lisino pril 12.5 mg-20 mg Tab) Contact prescribing physician if questions or concerns Unchanged hydroxychloroquine (hydroxychloroquine 200 mg Tab) By Mouth Every day Contact prescribing physician if questions or concerns Unchanged ketorolac (ketorolac 10 mg Tab) 1 Tablets By Mouth 2 times a day as needed for for pain Take one tab by mouth up to twice daily for pain. Contact prescribing physician if questions or concerns Unchanged leflunomide (leflunomide 10 mg oral tablet) By Mouth Every day Contact prescribing physician if questions or concerns Unchanged methotrexate (methotrexate 1 g injection) Intravenous Once Contact prescribing physician if questions or concerns Unchanged methylPREDNISolone (Medrol 4 mg Tab) Contact prescribing physician if questions or concerns Unchanged montelukast (montelukast 10 mg Tab) By Mouth Every day Contact prescribing physician if questions or concerns Unchanged nabumetone (nabumetone 750 mg Tab) By Mouth Every day Contact prescribing physician if questions or concerns Unchanged ocular lubricant ([employer] Eye Therapy) Both eyes 4 times a day Contact prescribing physician if questions or concerns Unchanged omeprazole (omeprazole 40 mg Cap-DR) By Mouth Every day Contact prescribing physician if questions or concerns Unchanged prednisoLONE By Mouth Every day Contact prescribing physician if questions or concerns Unchanged simvastatin (simvastatin 20 mg Tab) By Mouth Once a day (at bedtime) Contact prescribing physician if questions or concerns Unchanged tramadol (traMADOL 50 mg Tab) By Mouth Every 6 hours Contact prescribing physician if questions or concerns Test Results Urnls Dip Stick Auto w/o Microscopy POC 68519 (09/19/2023) Bilirubin Urine Dipstick - Negative Blood Urine Dipstick - Negative Glucose Urine Dipstick - Negative Ketones Urine Dipstick - Negative Leukocytes Urine Dipstick - Negative Nitrite Urine Dipstick - Negative Protein Urine Dipstick - Negative Specific Monette Urine Dipstick - 1.015 Urine Appearance Urine Dipstick - Clear Urine Color Urine Dipstick - Yellow Urobilinogen Urine Dipstick - Normal 0.2-1 EU/dl pH Urine Dipstick - 5.5 Allergies cephalexin (Unknown) oxyCODONE (Hallucinations) sulfa drugs (Unknown) Problems Ongoing - Any problem that you are currently receiving treatment for. Gross hematuria History of kidney stones Kidney stones Ureteral stone with hydronephrosis Patient Survey You m (more content not included)... Normal [facility] Patient Educationon 09-19-20 Patient Education Nephrology Dietary Guidelines to Help Prevent Kidney Stones Kidney stones are deposits of minerals and salts that form inside your kidneys. Your risk of developing kidney stones may be greater depending on your diet, your lifestyle, the medicines you take, and whether you have certain medical conditions. Most people can lower their chances of developing kidney stones by following the instructions below. Your dietitian may give you more specific instructions depending on your overall health and the type of kidney stones you tend to develop. What are tips for following this plan? Reading food labels ? Choose foods with no salt added or low-salt labels. Limit your salt (sodium) intake to less than 1,500 mg a day. ? Choose foods with calcium for each meal and snack. Try to eat about 300 mg of calcium at each meal. Foods that contain 200?500 mg of calcium a serving include: ? 8 oz (237 mL) of milk, zoqnzcq-pywawfsbxbhq-lrgos milk, and calcium-fortifiedfruit juice. Calcium-fortified means that calcium has been added to these drinks. ? 8 oz (237 mL) of kefir, yogurt, and soy yogurt. ? 4 oz (114 g) of tofu. ? 1 oz (28 g) of cheese. ? 1 cup (150 g) of dried figs. ? 1 cup (91 g) of cooked broccoli. ? One 3 oz (85 g) can of sardines or mackerel. Most people need 1,000?1,500 mg of calcium a day. Talk to your dietitian about how much calcium is recommended for you. Shopping ? Buy plenty of fresh fruits and vegetables. Most people do not need to avoid fruits and vegetables, even if these foods contain nutrients that may contribute to kidney stones. ? When shopping for convenience foods, choose: ? Whole pieces of fruit. ? Pre-made salads with dressing on the side. ? Low-fat fruit and yogurt smoothies. ? Avoid buying frozen meals or prepared deli foods. These can be high in sodium. ? Look for foods with live cultures, such as yogurt and kefir. ? Choose high-fiber grains, such as whole-wheat breads, oat bran, and wheat cereals. Cooking ? Do not add salt to food when cooking. Place a salt shaker on the table and allow each person to add his or her own salt to taste. ? Use vegetable protein, such as beans, textured vegetable protein (TVP), or tofu, instead of meat in pasta, casseroles, and soups. Meal planning ? Eat less salt, if told by your dietitian. To do this: ? Avoid eating processed or pre-made food. ? Avoid eating fast food. ? Eat less animal protein, including cheese, meat, poultry, or fish, if told by your dietitian. To do this: ? Limit the number of times you have meat, poultry, fish, or cheese each week. Eat a diet free of meat at least 2 days a week. ? Eat only one serving each day of meat, poultry, fish, or seafood. ? When you prepare animal protein, cut pieces into small portion sizes. For most meat and fish, one serving is about the size of the palm of your hand. ? Eat at least five servings of fresh fruits and vegetables each day. To do this: ? Keep fruits and vegetables on hand for snacks. ? Eat one piece of fruit or a handful of berries with breakfast. ? Have a salad and fruit at lunch. ? Have two kinds of vegetables at dinner. ? Limit foods that are high in a substance called oxalate. These include: ? Spinach (cooked), rhubarb, beets, sweet potatoes, and Chadian chard. ? Peanuts. ? Potato chips, belarusian fries, and baked potatoes with skin on. ? Nuts and nut products. ? Chocolate. ? If you regularly take a diuretic medicine, make sure to eat at least 1 or 2 servings of fruits or vegetables that are high in potassium each day. These include: ? Avocado. ? Banana. ? [place], prune, carrot, or tomato juice. ? Baked potato. ? Cabbage. ? Beans and split peas. Lifestyle ? Drink enough fluid to keep your urine pale yellow. This is the most important thing you can do. Spread your fluid intake throughout the day. ? If you drink alcohol: ? Limit how much you use to: ? 0?1 drink a day for women who are not . ? 0?2 drinks a day for men. ? Be aware of how much alcohol is in your drink. In the [place] one drink equals one 12 oz bottle of beer (355 mL), one 5 oz glass of wine (148 mL), or one 1? oz glass of hard liquor (44 mL). ? Lose weight if told by your health care provider. Work with your dietitian to find an eating plan and weight loss strategies that work best for you. General information ? Talk to your health care provider and dietitian about taking daily supplements. You may be told the following depending on your health and the cause of your kidney stones: ? Not to take supplements with vitamin C. ? To take a calcium supplement. ? To take a daily probiotic supplement. ? To take other supplements such as magnesium, fish oil, or vitamin B6. ? Take tfif-opo-aittvzx and prescription medicines only as told by your health care provider. These include supplements. What foods should I limit? Limit your in (more content not included)... Normal [facility] Urology Office/Clinic Noteon 09-19-2023 Urology Office/Clinic Note Chief Complaint 4m Metabolic Work Up HPI Staff 68 yo male here for 4 month f/u with metabolic workup. Previous Dx: ureteral stone with hydro, kidney stones, hx of kidney stones, gross hematuria. Stone analysis 05/18/23 - 100% uric acid. KUB 08/04/23 at [facility] - continued bilateral stones. 24hr urine done 08/16/23. Stone Analysis 05/18/23 Metabolic Work Up 08/16/23 Denies pain/burning and visible blood in urine. Denies flank pain. Has been having some post void dribbling for yrs. Would like to discuss w/PRW. Does wear a pad. 1 pad per day. Denies leaking at other times. History of Present Illness Tests reviewed: reviewed UA, KUB, metabolic workup I have reviewed the previous health record information and history for this patient from Dr. Muniz. I have reviewed and verified the staff HPI to be accurate for this encounter. Review of Systems PHQ Score Initial Depression Screen Score: 0 ROS - Provider Constitutional: denies weight loss, denies hot flashes. Eyes: denies eye problems. Gastrointestinal: denies nausea, denies vomiting. Cardiovascular: denies chest pain or angina. Integumentary: no dryness Musculoskeletal: denies musculoskeletal symptoms. ENMT: denies otolaryngeal symptoms. Respiratory: no shortness of breath. Heme/Lymph: denies easy bleeding tendency, denies easy bruising tendency. Psychiatric: no confusion, no anxiety. Genitourinary: See HPI. Physical Exam Vitals & Measurements HR: 64(Peripheral) RR: 16 BP: 126/77 HT: 68 in HT: 173 cm WT: 97.5 kg WT: 214.5 lb BMI: 32.58 General Appearance: alert, no distress, well nourished, well developed male. Genitourinary: normal scrotum, normal testes, normal urethra, normal epididymis, normal vas deferens/spermatic cord. Flank Pain: none. Bladder: nonpalpable. Assessment/Plan Most recent PSA 04/08/23 - 1.77 1. Kidney stones (N20.0: Calculus of kidney) Stone analysis 05/18/23 - 100% uric acid. KUB 08/04/23 at [facility] - two stones at R mid-upper pole and a cluster of three stones at LLP. No ureteral stones id'd. Personal review: stones may be related to bowel content due to uric acid stones not being visualized on a KUB. 24hr urine done 08/16/23 - good volume, low uric acid. Discussed imaging results. Will continue to monitor. UA today negative for blood and infection, pH 5.5. Will have pt start Effer-K 25mg bid to help maintain urine pH and to prevent stone formation. Discussed the medication side effects, and the patient will monitor closely for these, as well as for symptom improvement. If severe side effects occur, the medication should be stopped and the office notified. Follow up 6 months with KUB or sooner if needed. All questions/concerns were discussed. Pt to call the office if he encounters any issues prior. Pt acknowledges understanding. -Begin Effer-K. Rx sent to [facility] [place]. -Electrolyte panel in 1 month 2. History of kidney stones (Z87.442: Personal history of urinary calculi) Pt has a hx of kidney stones but has always been able to pass them on is own. Three episodes in his lifetime. Recently passed stones on 05/15/23. Follow-up With When Contact Information FLAVIO ONEAL, Zac De Oliveira, URL [facility] [address], [place] [address] [phone] Additional Instructions: 6 mos w/ KUB Patient Education Dietary Guidelines to Help Prevent Kidney Stones I, Adela Frias, personally scribed for Dr. Muniz on 09/19/2023 10:30:16. . Documentation recorded by the scribe, Adela Frias, accurately reflects the services(s) I performed and decisions made by me. Authenticated by Dr. Muniz on 09/19/2023 10:31:48. Problem List/Past Medical History Ongoing Gross hematuria History of kidney stones Kidney stones Ureteral stone with hydronephrosis Historical No qualifying data Procedure/Surgical History Arthroplasty of knee, Arthroscopy of knee, Carpal tunnel release, Cleft palate, Colonoscopy, EGD - Esophagogastroduodenoscopy, Procedure on shoulder, Procedure on spine, Skin cancer, Tympanoplasty. Medications acetaminophen 500 mg Tab, Oral, q6hr Seema D OTC 24HR, Oral, Daily aspirin 81 mg oral capsule, Oral, q24hr folic acid 1 mg Tab, Oral, Daily hydrochlorothiazide-lisinop ril 12.5 mg-20 mg Tab hydroxychloroquine 200 mg Tab, Oral, Daily ketorolac 10 mg Tab, 10 mg= 1 tab(s), Oral, BID, PRN leflunomide 10 mg oral tablet, Oral, Daily Medrol 4 mg Tab methotrexate 1 g injection, IV, Once montelukast 10 mg Tab, Oral, Daily nabumetone 750 mg Tab, Oral, Daily omeprazole 40 mg Cap-DR, Oral, Daily prednisoLONE, Oral, Daily Refresh Dry Eye Therapy, Eye-Both, QID simvastatin 20 mg Tab, Oral, Once a day (at bedtime) traMADOL 50 mg Tab, Oral, q6hr Allergies cephalexin (Unknown) oxyCODONE (Hallucinations) sulfa drugs (Unknown) Social History Alcohol - Denies Alcohol Use, 05/09/2023 Substance Abuse - Denies Substance Abuse, (more content not included)... Normal [facility] Comment on above: Result Comment: Elec tronically Signed By: Zac MUNIZ MD\.br\Date and Time Signed: 09/19/23 10:31 EDT\.br\Electronically Co-Signed By: Adela Frias\.br\Date and Time Co-Signed: 09/19/23 10:30 EDT XR hip RT min 2V(w/wo pelvis )*on 09-12-2023 XR hip RT min 2V(w/wo pelvis)* [place] [address] XRay Report Signed Patient: Valentin Torre MR#: [id number] 29 : 1955 Acct:[id number] Age/Sex: 68 / M ADM Date: 09/12/23 Loc: XD Room: Type: [facility] Attending Dr: Romel Davis MD Copies to: Romel Davis MD Ordering Provider: Romel Davis MD Date of Service: 09/12/23 XR/XR hip RT min 2V(w/wo pelvis)*: POLYARTHRITIS,OA, HIP PAIN 2 views RIGHT hip plain film COMPARISON: None HISTORY: Anterior RIGHT hip pain for years ACUTE FINDINGS: Mild degenerative changes with chondrocalcinosis. Mild SI joint degenerative change. DEGENERATIVE CHANGE: Unremarkable SOFT TISSUE FINDINGS: Unremarkable JOINT EFFUSION: None POSTOP CHANGES: None BONY MINERALIZATION: Adequate XR/XR hip RT min 2V(w/wo pelvis)* IMPRESSION: Mild RIGHT hip degeneration with chondrocalcinosis. Impression dictated by: Audie Cortes M.D.09/12/2023 11:57 AM Dictation Location: [place] [address] Transcribed By: MARV 09/12/23 1157 Dictated By: Audie Cortes DO 09/12/23 1142 Signed By: 09/12/23 1157 Normal [facility] Alanine aminotransferase [En zymatic activity/volume] in Serum or PlasmaOrdered By: Romel Davis on 09-05-2023 ALT [Catalytic activity/Vol] 29 U/L 7-52 [facility] Albumin [Mass/volume] in Ser um or Plasma by Bromocresol green (BCG) dye binding methoOrdered By: Romel Davis on 09-05-2023 Albumin BCG dye [Mass/Vol] 4.2 g/dL 3.5-5.7 [facility] Alkaline phosphatase [Enzyma tic activity/volume] in Serum or PlasmaOrdered By: Romel Davis on 09-05-2023 ALP [Catalytic activity/Vol] 83 U/L 34-104 [facility] Aspartate aminotransferase [ Enzymatic activity/volume] in Serum or PlasmaOrdered By: Romel Davis on 09-05-2023 AST [Catalytic activity/Vol] 19 U/L 13-39 [facility] Automated erythrocytes count in urine sediment (number/area)Ordered By: Romel Davis on 09-05-2023 RBC Auto (Urine sed) [#/Area] 0-1 [HPF] 0-4 [facility] Automated leukocytes count i n urine sediment (number/area)Ordered By: Romel Davis on 09-05-2023 WBC Auto (Urine sed) [#/Area] 0-1 [HPF] 0-4 [facility] Basophils Auto (Bld) [#/Vol] Ordered By: Romel Davis on 09-05-2023 Basophils (Bld) [#/Vol] 0.0 10*3/uL 0.0-0.2 [facility] Basophils/100 WBC Auto (Bld) Ordered By: Romel Davis on 09-05-2023 Basophils/100 WBC (Bld) 0.6 % . [facility] Bilirubin Test strip Ql (U)O rdered By: Romel Davis on 09-05-2023 Bilirubin Ql (U) Negative Negative [facility] Bilirubin.total [Mass/volume ] in Serum or PlasmaOrdered By: Romel Davis on 09-05-2023 Bilirubin [Mass/Vol] 0.8 mg/dL 0.3-1.0 [facility] Calcium [Mass/volume] in Ser um or PlasmaOrdered By: Romel Davis on 09-05-2023 Calcium [Mass/Vol] 9.2 mg/dL 8.6-10.3 [facility] Carbon dioxide, total [Moles /volume] in Serum or PlasmaOrdered By: Romel Davis on 09-05-2023 CO2 [Moles/Vol] 27.9 mmol/L 21.0-31.0 [facility] Chloride [Moles/volume] in S ace or PlasmaOrdered By: Romel Davis on 09-05-2023 Chloride [Moles/Vol] 107 mmol/L 98-107 [facility] Color Auto (U)Ordered By: Bridgett Davis on 09-05-2023 Color (U) Yellow Yellow [facility] Complement C3on 09-05-2023 Complement C3 124 mg/dL Normal 82-167 [facility] Comment on above: Result Comment: Perf ormed at: - [facility] [address] [id number] Maintenance Machinist: Richy Ardon PhD, Phone: [phone] Performed By: #### O XAL 24HRU, U24 CA, MAG 24HRU, CITRIC UR, PHOS 24HRU, URIC 24HRU #### [facility] , #### COL T V, U24 NA, CREA24 #### [facility] [address] [place] [address] Complement C4on 09-05-2023 Complement C4 15 mg/dL Normal 12-38 [facility] Comment on above: Result Comment: PERF ORMED BY: [place] [address] PATHOLOGIST YEAST CAKE CUTTER OLMAN ALBARRAN M.D. Performed By: #### O XAL 24HRU, U24 CA, MAG 24HRU, CITRIC UR, PHOS 24HRU, URIC 24HRU #### [facility] , #### COL T V, U24 NA, CREA24 #### [address] Complement Total (CH50)on Complement Total (CH50) 57 Normal >41 [facility] Comment on above: Result Comment: Age Male Female 1 - 30 days Not Estab. Not Estab. 31 days - 6 months >32 >20 7 months - 17 years >39 >39 >17 years >41 >41 NOTE: The adult ( >17 years ) reference interval range is used to flag abnormals on this report. If the patient is 17 years old or younger, use the table above to determine out of range values. Performed at: - [facility] [address] [id number] Maintenance Machinist: Richy Ardon PhD, Phone: [phone] PERFORMED BY: [place] [address] PATHOLOGIST YEAST CAKE CUTTER OLMAN ALBARRAN M.D. Performed By: #### O XAL 24HRU, U24 CA, MAG 24HRU, CITRIC UR, PHOS 24HRU, URIC 24HRU #### [facility] , #### COL T V, U24 NA, CREA24 #### [address] Complete Blood Count Auto Di ffon 09-05-2023 Basophils (Bld) [#/Vol] 0.0 10*3/uL Normal 0.0-0.2 [facility] Comment on above: Performed By: #### O XAL 24HRU, U24 CA, MAG 24HRU, CITRIC UR, PHOS 24HRU, URIC 24HRU #### [facility] , #### COL T V, U24 NA, CREA24 #### [address] Basophils/100 WBC (Bld) 0.6 % Normal . [facility] Comment on above: Performed By: #### O XAL 24HRU, U24 CA, MAG 24HRU, CITRIC UR, PHOS 24HRU, URIC 24HRU #### [facility] , #### COL T V, U24 NA, CREA24 #### [address] Eosinophils (Bld) [#/Vol] 0.1 10*3/uL Normal 0.0-0.45 [facility] Comment on above: Performed By: #### O XAL 24HRU, U24 CA, MAG 24HRU, CITRIC UR, PHOS 24HRU, URIC 24HRU #### [facility] , #### COL T V, U24 NA, CREA24 #### [address] Eosinophils/100 WBC (Bld) 0.9 % Normal . [facility] Comment on above: Performed By: #### O XAL 24HRU, U24 CA, MAG 24HRU, CITRIC UR, PHOS 24HRU, URIC 24HRU #### [facility] , #### COL T V, U24 NA, CREA24 #### [address] Erythrocyte distribution width (RBC) [Ratio] 14.1 % Normal 12.0-14.8 [facility] Comment on above: Performed By: #### O XAL 24HRU, U24 CA, MAG 24HRU, CITRIC UR, PHOS 24HRU, URIC 24HRU #### [facility] , #### COL T V, U24 NA, CREA24 #### [address] Hematocrit (Bld) [Volume fraction] 44.5 % Normal 38.8-50.0 [facility] Comment on above: Performed By: #### O XAL 24HRU, U24 CA, MAG 24HRU, CITRIC UR, PHOS 24HRU, URIC 24HRU #### [facility] , #### COL T V, U24 NA, CREA24 #### [address] Hemoglobin (Bld) [Mass/Vol] 15.2 g/dL Normal 13.0-17.0 [facility] Comment on above: Performed By: #### O XAL 24HRU, U24 CA, MAG 24HRU, CITRIC UR, PHOS 24HRU, URIC 24HRU #### [facility] , #### COL T V, U24 NA, CREA24 #### [address] Lymphocytes (Bld) [#/Vol] 1.1 10*3/uL Normal 1.00-4.8 [facility] Comment on above: Performed By: #### O XAL 24HRU, U24 CA, MAG 24HRU, CITRIC UR, PHOS 24HRU, URIC 24HRU #### [facility] , #### COL T V, U24 NA, CREA24 #### [address] Lymphocytes/100 WBC (Bld) 17.7 % Normal . [facility] Comment on above: Performed By: #### O XAL 24HRU, U24 CA, MAG 24HRU, CITRIC UR, PHOS 24HRU, URIC 24HRU #### [facility] , #### COL T V, U24 NA, CREA24 #### [address] MCH (RBC) [Entitic mass] 30.7 pg Normal 27.5-35.2 [facility] Comment on above: Performed By: #### O XAL 24HRU, U24 CA, MAG 24HRU, CITRIC UR, PHOS 24HRU, URIC 24HRU #### [facility] , #### COL T V, U24 NA, CREA24 #### [address] MCV (RBC) [Entitic vol] 89.9 fL Normal 83.5-101 [facility] Comment on above: Performed By: #### O XAL 24HRU, U24 CA, MAG 24HRU, CITRIC UR, PHOS 24HRU, URIC 24HRU #### [facility] , #### COL T V, U24 NA, CREA24 #### [address] Mean Corpuscular HGB Conc 34.2 g/dL Normal 32.5-35.6 [facility] Comment on above: Performed By: #### O XAL 24HRU, U24 CA, MAG 24HRU, CITRIC UR, PHOS 24HRU, URIC 24HRU #### [facility] , #### COL T V, U24 NA, CREA24 #### [address] Monocytes (Bld) [#/Vol] 0.6 10*3/uL Normal 0.0-0.8 [facility] Comment on above: Performed By: #### O XAL 24HRU, U24 CA, MAG 24HRU, CITRIC UR, PHOS 24HRU, URIC 24HRU #### [facility] , #### COL T V, U24 NA, CREA24 #### [address] Monocytes/100 WBC (Bld) 10.3 % Normal . [facility] Comment on above: Performed By: #### O XAL 24HRU, U24 CA, MAG 24HRU, CITRIC UR, PHOS 24HRU, URIC 24HRU #### [facility] , #### COL T V, U24 NA, CREA24 #### [address] Neutrophils (Bld) [#/Vol] 4.2 10*3/uL Normal 1.8-7.7 [facility] Comment on above: Performed By: #### O XAL 24HRU, U24 CA, MAG 24HRU, CITRIC UR, PHOS 24HRU, URIC 24HRU #### [facility] , #### COL T V, U24 NA, CREA24 #### [address] Neutrophils/100 WBC (Bld) 70.5 % Normal . [facility] Comment on above: Performed By: #### O XAL 24HRU, U24 CA, MAG 24HRU, CITRIC UR, PHOS 24HRU, URIC 24HRU #### [facility] , #### COL T V, U24 NA, CREA24 #### [address] NRBC% 0.1 /100{WBC} Normal 0-0.5 [facility] Comment on above: Performed By: #### O XAL 24HRU, U24 CA, MAG 24HRU, CITRIC UR, PHOS 24HRU, URIC 24HRU #### [facility] , #### COL T V, U24 NA, CREA24 #### [address] Platelet mean volume (Bld) [Entitic vol] 8.9 fL Normal 6.6-10.1 [facility] Comment on above: Performed By: #### O XAL 24HRU, U24 CA, MAG 24HRU, CITRIC UR, PHOS 24HRU, URIC 24HRU #### [facility] , #### COL T V, U24 NA, CREA24 #### [facility] [address] [place] [address] Platelets (Bld) [#/Vol] 175 10*3/uL Normal 150-450 [facility] Comment on above: Performed By: #### O XAL 24HRU, U24 CA, MAG 24HRU, CITRIC UR, PHOS 24HRU, URIC 24HRU #### [facility] , #### COL T V, U24 NA, CREA24 #### [facility] [address] [place] [address] RBC (Bld) [#/Vol] 4.96 10*6/uL Normal 3.90-5.60 [facility] Comment on above: Performed By: #### O XAL 24HRU, U24 CA, MAG 24HRU, CITRIC UR, PHOS 24HRU, URIC 24HRU #### [facility] , #### COL T V, U24 NA, CREA24 #### [address] WBC (Bld) [#/Vol] 5.9 10*3/uL Normal 4.1-10.5 [facility] Comment on above: Performed By: #### O XAL 24HRU, U24 CA, MAG 24HRU, CITRIC UR, PHOS 24HRU, URIC 24HRU #### [facility] , #### COL T V, U24 NA, CREA24 #### [facility] [address] [place] [address] Comprehensive Metabolic Pane vivek 09-05-2023 Albumin [Mass/Vol] 4.2 g/dL Normal 3.5-5.7 [facility] Comment on above: Performed By: #### O XAL 24HRU, U24 CA, MAG 24HRU, CITRIC UR, PHOS 24HRU, URIC 24HRU #### [facility] , #### COL T V, U24 NA, CREA24 #### [address] Albumin/Globulin [Mass ratio] 2.2 {ratio} Normal [facility] Comment on above: Performed By: #### O XAL 24HRU, U24 CA, MAG 24HRU, CITRIC UR, PHOS 24HRU, URIC 24HRU #### [facility] , #### COL T V, U24 NA, CREA24 #### [address] ALP [Catalytic activity/Vol] 83 U/L Normal 34-104 [facility] Comment on above: Result Comment: PERF ORMED BY: [place] [address] PATHOLOGIST YEAST CAKE CUTTER OLMAN ALBARRAN M.D. Performed By: #### O XAL 24HRU, U24 CA, MAG 24HRU, CITRIC UR, PHOS 24HRU, URIC 24HRU #### [facility] , #### COL T V, U24 NA, CREA24 #### [address] ALT [Catalytic activity/Vol] 29 U/L Normal 7-52 [facility] Comment on above: Performed By: #### O XAL 24HRU, U24 CA, MAG 24HRU, CITRIC UR, PHOS 24HRU, URIC 24HRU #### [facility] , #### COL T V, U24 NA, CREA24 #### [facility] [address] [place] [address] Anion gap [Moles/Vol] 10.2 mmol/L Normal 6.0-15.0 [facility] Comment on above: Performed By: #### O XAL 24HRU, U24 CA, MAG 24HRU, CITRIC UR, PHOS 24HRU, URIC 24HRU #### [facility] , #### COL T V, U24 NA, CREA24 #### [address] AST [Catalytic activity/Vol] 19 U/L Normal 13-39 [facility] Comment on above: Performed By: #### O XAL 24HRU, U24 CA, MAG 24HRU, CITRIC UR, PHOS 24HRU, URIC 24HRU #### [facility] , #### COL T V, U24 NA, CREA24 #### [address] Bilirubin [Mass/Vol] 0.8 mg/dL Normal 0.3-1.0 [facility] Comment on above: Performed By: #### O XAL 24HRU, U24 CA, MAG 24HRU, CITRIC UR, PHOS 24HRU, URIC 24HRU #### [facility] , #### COL T V, U24 NA, CREA24 #### [address] Calcium [Mass/Vol] 9.2 mg/dL Normal 8.6-10.3 [facility] Comment on above: Performed By: #### O XAL 24HRU, U24 CA, MAG 24HRU, CITRIC UR, PHOS 24HRU, URIC 24HRU #### [facility] , #### COL T V, U24 NA, CREA24 #### [address] Chloride [Moles/Vol] 107 mmol/L Normal 98-107 [facility] Comment on above: Performed By: #### O XAL 24HRU, U24 CA, MAG 24HRU, CITRIC UR, PHOS 24HRU, URIC 24HRU #### [facility] , #### COL T V, U24 NA, CREA24 #### [facility] [address] [place] [address] CO2 [Moles/Vol] 27.9 mmol/L Normal 21.0-31.0 [facility] Comment on above: Performed By: #### O XAL 24HRU, U24 CA, MAG 24HRU, CITRIC UR, PHOS 24HRU, URIC 24HRU #### [facility] , #### COL T V, U24 NA, CREA24 #### [address] Creatinine [Mass/Vol] 0.88 mg/dL Normal 0.70-1.30 [facility] Comment on above: Performed By: #### O XAL 24HRU, U24 CA, MAG 24HRU, CITRIC UR, PHOS 24HRU, URIC 24HRU #### [facility] , #### COL T V, U24 NA, CREA24 #### [address] GFR/1.73 sq M.predicted MDRD (S/P/Bld) [Vol rate/Area] mL/min/{1.73_m2} [facility] Comment on above: Performed By: #### O XAL 24HRU, U24 CA, MAG 24HRU, CITRIC UR, PHOS 24HRU, URIC 24HRU #### [facility] , #### COL T V, U24 NA, CREA24 #### [address] Globulin (S) [Mass/Vol] 1.9 g/dL [facility] Comment on above: Performed By: #### O XAL 24HRU, U24 CA, MAG 24HRU, CITRIC UR, PHOS 24HRU, URIC 24HRU #### [facility] , #### COL T V, U24 NA, CREA24 #### [address] Glucose [Mass/Vol] 75 mg/dL Normal 70-100 [facility] Comment on above: Result Comment: [place] Glucose Reference Range is dependent on time and content of last meal. Glucose of more than 200 mg/dL in a nonstressed, ambulatory subject supports the diagnosis of Diabetes Mellitus. ADA recommended reference range Performed By: #### O XAL 24HRU, U24 CA, MAG 24HRU, CITRIC UR, PHOS 24HRU, URIC 24HRU #### [facility] , #### COL T V, U24 NA, CREA24 #### [facility] [address] [place] [address] Potassium [Moles/Vol] 4.1 mmol/L Normal 3.5-5.1 [facility] Comment on above: Performed By: #### O XAL 24HRU, U24 CA, MAG 24HRU, CITRIC UR, PHOS 24HRU, URIC 24HRU #### [facility] , #### COL T V, U24 NA, CREA24 #### [address] Protein [Mass/Vol] 6.1 g/dL Low 6.4-8.9 [facility] Comment on above: Performed By: #### O XAL 24HRU, U24 CA, MAG 24HRU, CITRIC UR, PHOS 24HRU, URIC 24HRU #### [facility] , #### COL T V, U24 NA, CREA24 #### [address] Sodium [Moles/Vol] 141 mmol/L Normal 136-145 [facility] Comment on above: Performed By: #### O XAL 24HRU, U24 CA, MAG 24HRU, CITRIC UR, PHOS 24HRU, URIC 24HRU #### [facility] , #### COL T V, U24 NA, CREA24 #### [address] Urea nitrogen [Mass/Vol] 19 mg/dL Normal 7-25 [facility] Comment on above: Performed By: #### O XAL 24HRU, U24 CA, MAG 24HRU, CITRIC UR, PHOS 24HRU, URIC 24HRU #### [facility] , #### COL T V, U24 NA, CREA24 #### [facility] [address] [place] [address] Creatinine [Mass/volume] in Serum or PlasmaOrdered By: Romel Davis on 09-05-2023 Creatinine [Mass/Vol] 0.88 mg/dL 0.70-1.30 [facility] Dipstick and Microscopicon 1 Appearance (U) Clear Normal Clear [facility] Comment on above: Order Comment: URINE COLLECTION TIME (HRS): 24 URINE VOLUME (MILLILTERS): 2960 Performed By: #### O XAL 24HRU, U24 CA, MAG 24HRU, CITRIC UR, PHOS 24HRU, URIC 24HRU #### [facility] , #### COL T V, U24 NA, CREA24 #### [facility] [address] [place] [address] Bacteria,Urine None Seen Normal None Seen [facility] Comment on above: Order Comment: URINE COLLECTION TIME (HRS): 24 URINE VOLUME (MILLILTERS): 2960 Performed By: #### O XAL 24HRU, U24 CA, MAG 24HRU, CITRIC UR, PHOS 24HRU, URIC 24HRU #### [facility] , #### COL T V, U24 NA, CREA24 #### [facility] [address] [place] [address] Bilirubin,Urine Negative Normal Negative [facility] Comment on above: Order Comment: URINE COLLECTION TIME (HRS): 24 URINE VOLUME (MILLILTERS): 2960 Performed By: #### O XAL 24HRU, U24 CA, MAG 24HRU, CITRIC UR, PHOS 24HRU, URIC 24HRU #### [facility] , #### COL T V, U24 NA, CREA24 #### [facility] [address] [place] [address] [place] Color (U) Yellow Normal Yellow [facility] Comment on above: Order Comment: URINE COLLECTION TIME (HRS): 24 URINE VOLUME (MILLILTERS): 2960 Performed By: #### O XAL 24HRU, U24 CA, MAG 24HRU, CITRIC UR, PHOS 24HRU, URIC 24HRU #### [facility] , #### COL T V, U24 NA, CREA24 #### [facility] [address] Glucose Ql (U) Normal Normal Normal [facility] Comment on above: Order Comment: URINE COLLECTION TIME (HRS): 24 URINE VOLUME (MILLILTERS): 2960 Performed By: #### O XAL 24HRU, U24 CA, MAG 24HRU, CITRIC UR, PHOS 24HRU, URIC 24HRU #### [facility] , #### COL T V, U24 NA, CREA24 #### [facility] [address] [place] [address] Hyaline Casts,Urine None Seen Normal 0-8 [facility] Comment on above: Order Comment: URINE COLLECTION TIME (HRS): 24 URINE VOLUME (MILLILTERS): 2960 Result Comment: PERF ORMED BY: [place] [address] PATHOLOGIST [employer] OLMAN ALBARRNA M.D. Performed By: #### O XAL 24HRU, U24 CA, MAG 24HRU, CITRIC UR, PHOS 24HRU, URIC 24HRU #### [facility] , #### COL T V, U24 NA, CREA24 #### [facility] [address] [place] [address] Ketones Ql (U) Trace High Negative [facility] Comment on above: Order Comment: URINE COLLECTION TIME (HRS): 24 URINE VOLUME (MILLILTERS): 2960 Performed By: #### O XAL 24HRU, U24 CA, MAG 24HRU, CITRIC UR, PHOS 24HRU, URIC 24HRU #### [facility] , #### COL T V, U24 NA, CREA24 #### [facility] [address] [place] [address] Leukocyte esterase Test strip Ql (U) Negative Normal Negative [facility] Comment on above: Order Comment: URINE COLLECTION TIME (HRS): 24 URINE VOLUME (MILLILTERS): 2960 Performed By: #### O XAL 24HRU, U24 CA, MAG 24HRU, CITRIC UR, PHOS 24HRU, URIC 24HRU #### [facility] , #### COL T V, U24 NA, CREA24 #### [facility] [address] [place] [address] [place] Nitrite,Urine Negative Normal Negative [facility] Comment on above: Order Comment: URINE COLLECTION TIME (HRS): 24 URINE VOLUME (MILLILTERS): 2960 Performed By: #### O XAL 24HRU, U24 CA, MAG 24HRU, CITRIC UR, PHOS 24HRU, URIC 24HRU #### [facility] , #### COL T V, U24 NA, CREA24 #### [facility] [address] [place] [address] Occult Blood,Urine Negative Normal Negative [facility] Comment on above: Order Comment: URINE COLLECTION TIME (HRS): 24 URINE VOLUME (MILLILTERS): 2960 Performed By: #### O XAL 24HRU, U24 CA, MAG 24HRU, CITRIC UR, PHOS 24HRU, URIC 24HRU #### [facility] , #### COL T V, U24 NA, CREA24 #### [facility] [address] [place] [address] pH (U) 5.5 [pH] Normal 5.0-9.0 [facility] Comment on above: Order Comment: URINE COLLECTION TIME (HRS): 24 URINE VOLUME (MILLILTERS): 2960 Performed By: #### O XAL 24HRU, U24 CA, MAG 24HRU, CITRIC UR, PHOS 24HRU, URIC 24HRU #### [facility] , #### COL T V, U24 NA, CREA24 #### [facility] [address] [place] [address] [place] Protein,Urine Negative Normal Negative [facility] Comment on above: Order Comment: URINE COLLECTION TIME (HRS): 24 URINE VOLUME (MILLILTERS): 2960 Performed By: #### O XAL 24HRU, U24 CA, MAG 24HRU, CITRIC UR, PHOS 24HRU, URIC 24HRU #### [facility] , #### COL T V, U24 NA, CREA24 #### [facility] [address] [place] [address] RBC LM.HPF (Urine sed) [#/Area] 0 /[HPF] Normal 0-4 [facility] Comment on above: Order Comment: URINE COLLECTION TIME (HRS): 24 URINE VOLUME (MILLILTERS): 2960 Performed By: #### O XAL 24HRU, U24 CA, MAG 24HRU, CITRIC UR, PHOS 24HRU, URIC 24HRU #### [facility] , #### COL T V, U24 NA, CREA24 #### [address] Specificy [place],Urine 1.025 Normal 1.001-1.03 0 [facility] Comment on above: Order Comment: URINE COLLECTION TIME (HRS): 24 URINE VOLUME (MILLILTERS): 2960 Performed By: #### O XAL 24HRU, U24 CA, MAG 24HRU, CITRIC UR, PHOS 24HRU, URIC 24HRU #### [facility] , #### COL T V, U24 NA, CREA24 #### [address] Squamous Epithelial Cell,Urine None Seen Normal 0-2 [facility] Comment on above: Order Comment: URINE COLLECTION TIME (HRS): 24 URINE VOLUME (MILLILTERS): 2960 Performed By: #### O XAL 24HRU, U24 CA, MAG 24HRU, CITRIC UR, PHOS 24HRU, URIC 24HRU #### [facility] , #### COL T V, U24 NA, CREA24 #### [address] Urobilinogen,Urine Normal Normal Normal [facility] Comment on above: Order Comment: URINE COLLECTION TIME (HRS): 24 URINE VOLUME (MILLILTERS): 2960 Performed By: #### O XAL 24HRU, U24 CA, MAG 24HRU, CITRIC UR, PHOS 24HRU, URIC 24HRU #### [facility] , #### COL T V, U24 NA, CREA24 #### [facility] [address] [place] [address] WBC LM.HPF (Urine sed) [#/Area] 0 /[HPF] Normal 0-4 [facility] Comment on above: Order Comment: URINE COLLECTION TIME (HRS): 24 URINE VOLUME (MILLILTERS): 2960 Performed By: #### O XAL 24HRU, U24 CA, MAG 24HRU, CITRIC UR, PHOS 24HRU, URIC 24HRU #### [facility] , #### COL T V, U24 NA, CREA24 #### [address] Eosinophils Auto (Bld) [#/Vo l]Ordered By: Romel Davis on 09-05-2023 Eosinophils (Bld) [#/Vol] 0.1 10*3/uL 0.0-0.45 [facility] Eosinophils/100 WBC Auto (Bl d)Ordered By: Romel Davis on 09-05-2023 Eosinophils/100 WBC (Bld) 0.9 % . [facility] Erythrocyte Sedimentation Ra bruno 09-05-2023 ESR (Bld) [Velocity] 3 mm/h Normal 0-19 [facility] Comment on above: Result Comment: PERF ORMED BY: [place] [address] PATHOLOGIST [employer]KE [employer] OLMAN ALBARRAN M.D. Performed By: #### O XAL 24HRU, U24 CA, MAG 24HRU, CITRIC UR, PHOS 24HRU, URIC 24HRU #### [facility] , #### COL T V, U24 NA, CREA24 #### [address] Erythrocyte distribution wid th Auto (RBC) [Ratio]Ordered By: Romel Davis on 09-05-2023 Erythrocyte distribution width (RBC) [Ratio] 14.1 % 12.0-14.8 [facility] Erythrocyte sedimentation ra te by Photometric methodOrdered By: Romel Davis on 09-05-2023 ESR Photometric method (Bld) [Velocity] 3 mm/hr 0-19 [facility] Globulin Calc (S) [Mass/Vol] Ordered By: Romel Davis on 09-05-2023 Globulin (S) [Mass/Vol] 1.9 g/dL [facility] Glucose [Mass/volume] in Ser um or PlasmaOrdered By: Romel Davis on 09-05-2023 Glucose [Mass/Vol] 75 mg/dL 70-100 [facility] Comment on above: ADA recommended refe rence rangeRandom Glucose Reference Range is dependent on time and content of last meal. Glucose of more than 200 mg/dL in a nonstressed, ambulatory subject supports the diagnosis of Diabetes Mellitus. Hematocrit Auto (Bld) [Volum e fraction]Ordered By: Romel Davis on 09-05-2023 Hematocrit (Bld) [Volume fraction] 44.5 % 38.8-50.0 [facility] Hemoglobin [Mass/volume] in BloodOrdered By: Romel Davis on 09-05-2023 Hemoglobin (Bld) [Mass/Vol] 15.2 g/dL 13.0-17.0 [facility] Ketones Auto test strip (U) [Mass/Vol]Ordered By: Romel Davis on 09-05-2023 Ketones (U) [Mass/Vol] Trace Negative [facility] - UrinalysisOrder ed By: Romel Davis on 09-05-2023 Hyaline casts LM Ql (Urine sed) None seen [LPF] 0-8 [facility] Leukocytes [#/volume] correc nat for nucleated erythrocytes in Blood by Automated counOrdered By: Romel Davis on 09-05-2023 WBC corrected for nucl RBC Auto (Bld) [#/Vol] 5.9 10*3/uL 4.1-10.5 [facility] Lymphocytes Auto (Bld) [#/Vo l]Ordered By: Romel Davis on 09-05-2023 Lymphocytes (Bld) [#/Vol] 1.1 10*3/uL 1.00-4.8 [facility] Lymphocytes/100 WBC Auto (Bl d)Ordered By: Romel Davis on 09-05-2023 Lymphocytes/100 WBC (Bld) 17.7 % . [facility] MCH Auto (RBC) [Entitic mass ]Ordered By: Romel Davis on 09-05-2023 MCH (RBC) [Entitic mass] 30.7 pg 27.5-35.2 [facility] MCHC Auto (RBC) [Mass/Vol]Or dered By: Romel Davis on 09-05-2023 MCHC (RBC) [Mass/Vol] 34.2 g/dL 32.5-35.6 [facility] MCV Auto (RBC) [Entitic vol] Ordered By: Romel Davis on 09-05-2023 MCV (RBC) [Entitic vol] 89.9 fL 83.5-101 [facility] Monocytes Auto (Bld) [#/Vol] Ordered By: Romel Davis on 09-05-2023 Monocytes (Bld) [#/Vol] 0.6 10*3/uL 0.0-0.8 [facility] Monocytes/100 WBC Auto (Bld) Ordered By: Romel Davis on 09-05-2023 Monocytes/100 WBC (Bld) 10.3 % . [facility] Neutrophils Auto (Bld) [#/Vo l]Ordered By: Romel Davis on 09-05-2023 Neutrophils (Bld) [#/Vol] 4.2 10*3/uL 1.8-7.7 [facility] Neutrophils/100 WBC Auto (Bl d)Ordered By: Romel Davis on 09-05-2023 Neutrophils/100 WBC (Bld) 70.5 % . [facility] Nitrite Test strip Ql (U)Ord ered By: Romel Davis on 09-05-2023 Nitrite Ql (U) Negative Negative [facility] No Panel InformationOrdered By: Romel Davis on 09-05-2023 Estimated GFR (CKD-EPI) > 60.0 mL/Min [facility] Creatinine Clearance (Chem N/A [facility] Total Complement (CH50) 57 U/mL >41 [facility] Comment on above: Age Male Female 1 - 30 days Not Estab. Not Estab. 31 days - 6 months >32 >20 7 months - 17 years >39 >39 >17 years >41 >41 NOTE: The adult ( >17 years ) reference interval range is used to flag abnormals on this report. If the patient is 17 years old or younger, use the table above to determine out of range values.Performed at: - [facility] [id number] Director: Richy Ardon PhD, Phone: [phone] Nucleated erythrocytes [Pres ence] in Blood by Automated countOrdered By: Romel Davis on 09-05-2023 Nucleated RBC Auto Ql (Bld) 0.1 /100{WBC} 0-0.5 [facility] Platelet mean volume Auto (B ld) [Entitic vol]Ordered By: Romel Davis on 09-05-2023 Platelet mean volume (Bld) [Entitic vol] 8.9 fL 6.6-10.1 [facility] Platelets Auto (Bld) [#/Vol] Ordered By: Romel Davis on 09-05-2023 Platelets (Bld) [#/Vol] 175 10*3/uL 150-450 [facility] Potassium [Moles/volume] in Serum or PlasmaOrdered By: Romel Davis on 09-05-2023 Potassium [Moles/Vol] 4.1 mmol/L 3.5-5.1 [facility] Protein Auto test strip (U) [Mass/Vol]Ordered By: Romel Davis on 09-05-2023 Protein (U) [Mass/Vol] Negative Negative [facility] Protein [Mass/volume] in Ser um or PlasmaOrdered By: Romel Davis on 09-05-2023 Protein [Mass/Vol] 6.1 g/dL 6.4-8.9 [facility] RBC Auto (Bld) [#/Vol]Ordere d By: Romel Davis on 09-05-2023 RBC (Bld) [#/Vol] 4.96 10*6/uL 3.90-5.60 [facility] Serum or plasma albumin/glob ulin mass ratioOrdered By: Romel Davis on 09-05-2023 Albumin/Globulin [Mass ratio] 2.2 {ratio} [facility] Serum or plasma anion gap de terminationOrdered By: Romel Davis on 09-05-2023 Anion gap [Moles/Vol] 10.2 mmol/L 6.0-15.0 [facility] Serum or plasma complement C 3 measurement (mass/volume)Ordered By: Romel Davis on 09-05-2023 Complement C3 [Mass/Vol] 124 mg/dL 82-167 [facility] Comment on above: Performed at: [employer] [facility] [employer] [address] [id number] Director: Richy Ardon PhD, Phone: [phone] Serum or plasma complement C 4 measurement (mass/volume)Ordered By: Romel Davis on 09-05-2023 Complement C4 [Mass/Vol] 15 mg/dL 12-38 [facility] Sodium [Moles/volume] in Ser um or PlasmaOrdered By: Romel Davis on 09-05-2023 Sodium [Moles/Vol] 141 mmol/L 136-145 [facility] Specific gravity Auto test s trip (U) [Rel density]Ordered By: Romel Davis on 09-05-2023 Specific gravity (U) [Rel density] 1.025 1.001-1.03 0 [facility] Squamous epithelial cells de tection in urine sediment by light microscopyOrdered By: Romel Davis on 09-05-2023 Epithelial cells.squamous LM Ql (Urine sed) None seen [HPF] 0-2 [facility] Urea nitrogen [Mass/volume] in Serum or PlasmaOrdered By: Romel Davis on 09-05-2023 Urea nitrogen [Mass/Vol] 19 mg/dL 7-25 [facility] Urine bacteria detection by automated methodOrdered By: Romel Davis on 09-05-2023 Bacteria Auto Ql (U) None seen None Seen [facility] Urine clarity by refractomet ry automatedOrdered By: Romel Davis on 09-05-2023 Clarity Refractometry automated (U) Clear Clear [facility] Urine glucose measurement by automated test strip (mass/volume)Ordered By: Romel Davis on 09-05-2023 Glucose Auto test strip (U) [Mass/Vol] Normal mg/dL Normal [facility] Urine hemoglobin detection b y automated test stripOrdered By: Romel Davis on 09-05-2023 Hemoglobin Auto test strip Ql (U) Negative Negative [facility] Urine leukocyte esterase det ection by automated test stripOrdered By: Romel Davis on 09-05-2023 Leukocyte esterase Auto test strip Ql (U) Negative Negative [facility] Urobilinogen Auto test strip (U) [Mass/Vol]Ordered By: Romel Davis on 09-05-2023 Urobilinogen (U) [Mass/Vol] Normal mg/dL Normal [facility] WBC Auto (Bld) [#/Vol]Ordere d By: Romel Davis on 09-05-2023 WBC (Bld) [#/Vol] 5.9 10*3/uL 4.1-10.5 [facility] pH Auto test strip (U)Ordere d By: Romel Davis on 09-05-2023 pH (U) 5.5 [pH] 5.0-9.0 [facility] Lab Reportson 08-29-2023 Lab Reports [id number] Normal [facility] Report[facility] 08-19-2023 [facility] Reports [id number]:127 Normal [facility] Report[facility] 08-17-2023 [facility] Reports [id number]:127 Normal [facility] 24 Hr Urine Uric Acidon 07-23 Uric Acid, 24 Hr Urine 674.9 Normal 182.4 -936. 8 [facility] Comment on above: Order Comment: URINE VOLUME (MILLILTERS): 2960 Result Comment: Perf ormed at: - [facility] [address] [id number] Maintenance Machinist: Richy Ardon PhD, Phone: [phone] Performed By: #### O XAL 24HRU, U24 CA, MAG 24HRU, CITRIC UR, PHOS 24HRU, URIC 24HRU #### [facility] , #### COL T V, U24 NA, CREA24 #### [facility] [address] Urine Uric Acid 22.8 mg/dL Normal Not Estab. [facility] Comment on above: Order Comment: URINE VOLUME (MILLILTERS): 2960 Performed By: #### O XAL 24HRU, U24 CA, MAG 24HRU, CITRIC UR, PHOS 24HRU, URIC 24HRU #### [facility] , #### COL T V, U24 NA, CREA24 #### [facility] [address] [place] [address] 24 hour urine sodium measure ment (moles/time)Ordered By: Zac Muniz on 08-16-2023 Sodium (24H U) [Moles/Time] 181 mmol/24 40-220 [facility] 24 hour urine uric acid ophelia urement (mass/time)Ordered By: Zac Muniz on 08-16-2023 Urate (24H U) [Mass/Time] 674.9 mg/24 hr 182.4-936. 8 [facility] Comment on above: Performed at: [place] [id number] Director: Richy Ardon PhD, Phone: [phone] Blood Urea Nitrogenon 2022 Urea nitrogen [Mass/Vol] 22 mg/dL Normal 7-25 [facility] Comment on above: Performed By: #### O XAL 24HRU, U24 CA, MAG 24HRU, CITRIC UR, PHOS 24HRU, URIC 24HRU #### [facility] , #### COL T V, U24 NA, CREA24 #### [facility] [address] [place] [address] CT biopsyOrdered By: Zac Muniz on 08-16-2023 CT biopsy 24 Hours [facility] Calciumon 08-16-2023 Calcium [Mass/Vol] 9.2 mg/dL Normal 8.6-10.3 [facility] Comment on above: Performed By: #### O XAL 24HRU, U24 CA, MAG 24HRU, CITRIC UR, PHOS 24HRU, URIC 24HRU #### [facility] , #### COL T V, U24 NA, CREA24 #### [address] Calcium [Mass/time] in 24 ho ur UrineOrdered By: Zac Muniz on 08-16-2023 Calcium (24H U) [Mass/Time] 98 mg/24 hr 0-320 [facility] Calcium [Mass/volume] in 24 hour UrineOrdered By: Zac Muniz on 08-16-2023 Calcium (24H U) [Mass/Vol] 3.3 mg/dL Not Estab. [facility] Calcium [Mass/volume] in Ser um or PlasmaOrdered By: Zac Muniz on 08-16-2023 Calcium [Mass/Vol] 9.2 mg/dL 8.6-10.3 [facility] Calcium, 24Hr Urineon 2022 Calcium, Urine 3.3 mg/dL Normal Not Estab. [facility] Comment on above: Order Comment: URINE VOLUME (MILLILTERS): 2960 Performed By: #### O XAL 24HRU, U24 CA, MAG 24HRU, CITRIC UR, PHOS 24HRU, URIC 24HRU #### [facility] , #### COL T V, U24 NA, CREA24 #### [facility] [address] [place] [address] [place] Calcium, Urine 24 Hr 98 Normal 0-320 [facility] Comment on above: Order Comment: URINE VOLUME (MILLILTERS): 2960 Performed By: #### O XAL 24HRU, U24 CA, MAG 24HRU, CITRIC UR, PHOS 24HRU, URIC 24HRU #### [facility] , #### COL T V, U24 NA, CREA24 #### [facility] [address] [place] [address] [place] Carbon dioxide, total [Moles /volume] in Serum or PlasmaOrdered By: Zac Muniz on 08-16-2023 CO2 [Moles/Vol] 22.4 mmol/L 21.0-31.0 [facility] Chloride [Moles/volume] in S ace or PlasmaOrdered By: Zac Muniz on 08-16-2023 Chloride [Moles/Vol] 108 mmol/L 98-107 [facility] Citric Acid, Urine, 24 Houro n 08-16-2023 Citric Acid, Urine 219 mg/L Normal Undefined [facility] Comment on above: Order Comment: URINE VOLUME (MILLILTERS): 2960 Result Comment: This test was developed and its performance characteristics determined by [facility]. It has not been cleared or approved by the Food and Drug Administration. Performed By: #### O XAL 24HRU, U24 CA, MAG 24HRU, CITRIC UR, PHOS 24HRU, URIC 24HRU #### [facility] , #### COL T V, U24 NA, CREA24 #### [facility] [address] [place] [address] Citric Acid, Urine, 24HR 648 Normal 320-1240 [facility] Comment on above: Order Comment: URINE VOLUME (MILLILTERS): 2960 Result Comment: Perf ormed at: [facility] [id number] Maintenance Machinist: Kaley Joaquin MD, Phone: [phone] PERFORMED BY: [place] [address] PATHOLOGIST [employer] OLMAN ALBARRAN M.D. Performed By: #### O XAL 24HRU, U24 CA, MAG 24HRU, CITRIC UR, PHOS 24HRU, URIC 24HRU #### [facility] , #### COL T V, U24 NA, CREA24 #### [facility] [address] [place] [address] Mainor Time and Vol 24 hr uron 08-16-2023 Total Volume, Urine 2960 Normal [facility] Comment on above: Order Comment: URINE COLLECTION TIME (HRS): 24 URINE VOLUME (MILLILTERS): 2960 Result Comment: PERF ORMED BY: [place] [address] PATHOLOGIST [employer]KE [employer] OLMAN ALBARRAN M.D. Performed By: #### O XAL 24HRU, U24 CA, MAG 24HRU, CITRIC UR, PHOS 24HRU, URIC 24HRU #### [facility] , #### COL T V, U24 NA, CREA24 #### [address] Urine Collection Time 24 Normal [facility] [facility] Comment on above: Order Comment: URINE COLLECTION TIME (HRS): 24 URINE VOLUME (MILLILTERS): 2960 Performed By: #### O XAL 24HRU, U24 CA, MAG 24HRU, CITRIC UR, PHOS 24HRU, URIC 24HRU #### [facility] , #### COL T V, U24 NA, CREA24 #### [address] Creatinineon 08-16-2023 Creatinine [Mass/Vol] 0.88 mg/dL Normal 0.70-1.30 [facility] Comment on above: Performed By: #### O XAL 24HRU, U24 CA, MAG 24HRU, CITRIC UR, PHOS 24HRU, URIC 24HRU #### [facility] , #### COL T V, U24 NA, CREA24 #### [address] GFR/1.73 sq M.predicted MDRD (S/P/Bld) [Vol rate/Area] mL/min/{1.73_m2} Normal [facility] Comment on above: Performed By: #### O XAL 24HRU, U24 CA, MAG 24HRU, CITRIC UR, PHOS 24HRU, URIC 24HRU #### [facility] , #### COL T V, U24 NA, CREA24 #### [address] Creatinine [Mass/volume] in Serum or PlasmaOrdered By: Zac Muniz on 08-16-2023 Creatinine [Mass/Vol] 0.88 mg/dL 0.70-1.30 [facility] Creatinine [Mass/volume] in UrineOrdered By: Zac Muniz on 08-16-2023 Creatinine (U) [Mass/Vol] 57.00 mg/dL 14.00-26.0 0 [facility] Creatinine, 24 Hr Urineon Creatinine 24 Hour, Urine 1.68 g/24_hr Normal 1.00-2.09 [facility] Comment on above: Order Comment: URINE COLLECTION TIME (HRS): 24 URINE VOLUME (MILLILTERS): 2960 Performed By: #### O XAL 24HRU, U24 CA, MAG 24HRU, CITRIC UR, PHOS 24HRU, URIC 24HRU #### [facility] , #### COL T V, U24 NA, CREA24 #### [facility] [address] [place] [address] Creatinine, Urine 57.00 mg/dL High 14.00-26.0 0 [facility] Comment on above: Order Comment: URINE COLLECTION TIME (HRS): 24 URINE VOLUME (MILLILTERS): 2960 Performed By: #### O XAL 24HRU, U24 CA, MAG 24HRU, CITRIC UR, PHOS 24HRU, URIC 24HRU #### [facility] , #### COL T V, U24 NA, CREA24 #### [facility] [address] [place] [address] [place] Electrolyteson 08-16-2023 Anion gap [Moles/Vol] 12.6 mmol/L Normal 6.0-15.0 [facility] Comment on above: Performed By: #### O XAL 24HRU, U24 CA, MAG 24HRU, CITRIC UR, PHOS 24HRU, URIC 24HRU #### [facility] , #### COL T V, U24 NA, CREA24 #### [facility] [address] [place] [address] [place] Chloride [Moles/Vol] 108 mmol/L High 98-107 [facility] Comment on above: Performed By: #### O XAL 24HRU, U24 CA, MAG 24HRU, CITRIC UR, PHOS 24HRU, URIC 24HRU #### [facility] , #### COL T V, U24 NA, CREA24 #### [address] CO2 [Moles/Vol] 22.4 mmol/L Normal 21.0-31.0 [facility] Comment on above: Performed By: #### O XAL 24HRU, U24 CA, MAG 24HRU, CITRIC UR, PHOS 24HRU, URIC 24HRU #### [facility] , #### COL T V, U24 NA, CREA24 #### [address] Potassium [Moles/Vol] 4.0 mmol/L Normal 3.5-5.1 [facility] Comment on above: Performed By: #### O XAL 24HRU, U24 CA, MAG 24HRU, CITRIC UR, PHOS 24HRU, URIC 24HRU #### [facility] , #### COL T V, U24 NA, CREA24 #### [facility] [address] [place] [address] Sodium [Moles/Vol] 139 mmol/L Normal 136-145 [facility] Comment on above: Performed By: #### O XAL 24HRU, U24 CA, MAG 24HRU, CITRIC UR, PHOS 24HRU, URIC 24HRU #### [facility] , #### COL T V, U24 NA, CREA24 #### [facility] [address] [place] [address] Magnesium [Mass/time] in 24 hour UrineOrdered By: Zac Muniz on 08-16-2023 Magnesium (24H U) [Mass/Time] 97.7 mg/24 hr 12.0-293.0 [facility] Magnesium [Mass/volume] in U rineOrdered By: Zac Muniz on 08-16-2023 Magnesium (U) [Mass/Vol] 3.3 mg/dL Not Estab. [facility] Magnesium, Urine 24Hron 07-23 Magnesium, 24Hr Urine 97.7 Normal 12.0-293.0 [facility] Comment on above: Order Comment: URINE VOLUME (MILLILTERS): 2960 Performed By: #### O XAL 24HRU, U24 CA, MAG 24HRU, CITRIC UR, PHOS 24HRU, URIC 24HRU #### [facility] , #### COL T V, U24 NA, CREA24 #### [facility] [address] Magnesium, Urine 3.3 mg/dL Normal Not Estab. [facility] Comment on above: Order Comment: URINE VOLUME (MILLILTERS): 2960 Performed By: #### O XAL 24HRU, U24 CA, MAG 24HRU, CITRIC UR, PHOS 24HRU, URIC 24HRU #### [facility] , #### COL T V, U24 NA, CREA24 #### [facility] [address] No Panel InformationOrdered By: Zac Muniz on 08-16-2023 Estimated GFR (CKD-EPI) > 60.0 mL/Min [facility] Creatinine Clearance (Chem N/A [facility] Urine Citric Acid 219 mg/L Undefined [facility] Comment on above: This test was develo ped and its performance characteristicsdetermined by [facility]. It has not been cleared orapproved by the Food and Drug Administration. Urine Citric Acid 24 Hour 648 mg/24 hr 320-1240 [facility] Comment on above: Performed at: [address] [id number] Director: Kaley Joaquin MD, Phone: [phone] Urine Creatinine 24 Hour 1.68 g/24 hr 1.00-2.09 [facility] Oxalate [Mass/time] in 24 ho ur UrineOrdered By: Zac Muniz on 08-16-2023 Oxalate (24H U) [Mass/Time] 18 mg/24 hr 7-44 [facility] Oxalate [Mass/volume] in Uri neOrdered By: Zac Muniz on 08-16-2023 Oxalate (U) [Mass/Vol] 6 mg/L Undefined [facility] Oxalate, Quant, 24Hr Urineon 08-16-2023 Oxalates, Urine 6 mg/L Normal Undefined [facility] Comment on above: Order Comment: URINE VOLUME (MILLILTERS): 2960 Performed By: #### O XAL 24HRU, U24 CA, MAG 24HRU, CITRIC UR, PHOS 24HRU, URIC 24HRU #### [facility] , #### COL T V, U24 NA, CREA24 #### [facility] [address] [place] [address] Oxalates, Urine 24Hr 18 Normal [facility] Comment on above: Order Comment: URINE VOLUME (MILLILTERS): 2960 Performed By: #### O XAL 24HRU, U24 CA, MAG 24HRU, CITRIC UR, PHOS 24HRU, URIC 24HRU #### [facility] , #### COL T V, U24 NA, CREA24 #### [facility] [address] [place] [address] Parathyrin.intact [Mass/volu me] in Serum or PlasmaOrdered By: Zac Muniz on 08-16-2023 Parathyrin.intact [Mass/Vol] 53.9 pg/mL [facility] Parathyroid Hormone Intacton 08-16-2023 Parathyroid Hormone Intact 53.9 pg/mL Normal [facility] Comment on above: Result Comment: PERF ORMED BY: [place] [address] PATHOLOGIST [employer] OLMAN ALBARRAN M.D. Performed By: #### O XAL 24HRU, U24 CA, MAG 24HRU, CITRIC UR, PHOS 24HRU, URIC 24HRU #### [facility] , #### COL T V, U24 NA, CREA24 #### [facility] [address] [place] [address] [place] Phosphate [Mass/time] in 24 hour UrineOrdered By: Zac Muniz on 08-16-2023 Phosphate (24H U) [Mass/Time] 462 mg/24 hr 390-1425 [facility] Phosphate [Mass/volume] in U rineOrdered By: Zac Muniz on 08-16-2023 Phosphate (U) [Mass/Vol] 15.6 mg/dL Not Estab. [facility] Phosphorus, 24Hr Urineon Phosphorous, Urine 15.6 mg/dL Normal Not Estab. [facility] Comment on above: Order Comment: URINE VOLUME (MILLILTERS): 2960 Performed By: #### O XAL 24HRU, U24 CA, MAG 24HRU, CITRIC UR, PHOS 24HRU, URIC 24HRU #### [facility] , #### COL T V, U24 NA, CREA24 #### [facility] [address] [place] [id number] [place] Phosphorus, Urine 24Hr 462 Normal 390-1425 [facility] Comment on above: Order Comment: URINE VOLUME (MILLILTERS): 2960 Performed By: #### O XAL 24HRU, U24 CA, MAG 24HRU, CITRIC UR, PHOS 24HRU, URIC 24HRU #### [facility] , #### COL T V, U24 NA, CREA24 #### [facility] [address] [place] [id number] [facility] Potassium [Moles/volume] in Serum or PlasmaOrdered By: Zac Muniz on 08-16-2023 Potassium [Moles/Vol] 4.0 mmol/L 3.5-5.1 [facility] Serum or plasma anion gap de terminationOrdered By: Zac Muniz on 08-16-2023 Anion gap [Moles/Vol] 12.6 mmol/L 6.0-15.0 [facility] Sodium [Moles/volume] in Ser um or PlasmaOrdered By: Zac Muniz on 08-16-2023 Sodium [Moles/Vol] 139 mmol/L 136-145 [facility] Sodium [Moles/volume] in Uri neOrdered By: Zac Muniz on 08-16-2023 Sodium (U) [Moles/Vol] 61.0 mmol/L [facility] Comment on above: No reference range e stablished Sodium, 24 Hr Urineon 2022 Sodium (U) [Moles/Vol] 61.0 mmol/L Normal [facility] Comment on above: Order Comment: URINE COLLECTION TIME (HRS): 24 URINE VOLUME (MILLILTERS): 2960 Result Comment: No r eference range established Performed By: #### O XAL 24HRU, U24 CA, MAG 24HRU, CITRIC UR, PHOS 24HRU, URIC 24HRU #### [facility] , #### COL T V, U24 NA, CREA24 #### [address] Sodium 24 Hour Urine 181 Normal 40-220 [facility] Comment on above: Order Comment: URINE COLLECTION TIME (HRS): 24 URINE VOLUME (MILLILTERS): 2960 Performed By: #### O XAL 24HRU, U24 CA, MAG 24HRU, CITRIC UR, PHOS 24HRU, URIC 24HRU #### [facility] , #### COL T V, U24 NA, CREA24 #### [facility] [address] [place] [address] [place] Urate [Mass/volume] in Serum or PlasmaOrdered By: Zac Muniz on 08-16-2023 Urate [Mass/Vol] 4.3 mg/dL 4.4-7.6 [facility] Urea nitrogen [Mass/volume] in Serum or PlasmaOrdered By: Zac Muniz on 08-16-2023 Urea nitrogen [Mass/Vol] 22 mg/dL 06-14 [facility] Uric Acidon 08-16-2023 Urate [Mass/Vol] 4.3 mg/dL Low 4.4-7.6 [facility] Comment on above: Result Comment: PERF ORMED BY: [place] [address] PATHOLOGIST [employer] OLMAN ALBARRAN M.D. Performed By: #### O XAL 24HRU, U24 CA, MAG 24HRU, CITRIC UR, PHOS 24HRU, URIC 24HRU #### [facility] , #### COL T V, U24 NA, CREA24 #### [facility] [address] Urine uric acid measurement (mass/volume)Ordered By: Zac Muniz on 08-16-2023 Urate (U) [Mass/Vol] 22.8 mg/dL Not Estab. [facility] Urine volume measurementOrde red By: Zac Muniz on 08-16-2023 Specimen volume (U) 2960 ml [facility] RAD - MISCon 08-04-2023 RAD - MISC [id number]#1.00CD:127 Normal [facility] XR abdomen 1Von 08-04-2023 XR abdomen 1V [facility] [place] [address] [place] [address] XRay Report Signed Patient: Valentin Torre MR#: [id number] 29 : 1955 Acct:[id number] Age/Sex: 68 / M ADM Date: 08/04/23 Loc: XD Room: Type: [facility] Attending Dr: Zac Muniz MD Copies to: Zac Muniz MD Ordering Provider: Zac Muniz MD Date of Service: 08/04/23 XR/XR abdomen 1V: N20.0 KUB: CLINICAL DATA: Follow-up nephrolithiasis. COMPARISON: 05/09/2023 Supine views of the abdomen and pelvis were obtained. There is air and stool within the colon. The kidneys are partially obscured, greater on the right. Nonetheless, there are still 2 stones at the mid to upper pole the right kidney and a cluster of 3 stones at the lower pole on the left. No suspect ureteral calculi are seen. No soft tissue masses are noted. There is slight levoscoliotic curvature as well as postoperative and degenerative changes involving the spine. XR/XR abdomen 1V IMPRESSION: CONTINUED BILATERAL NEPHROLITHIASIS, SIMILAR TO THE PRIOR. Impression dictated by: Christine Alexandra M.D.08/04/2023 11:03 AM Dictation Location: [place] [address] Transcribed By: [facility] 08/04/231102 Dictated By: Christine Alexandra MD 08/04/23 110 Signed By: 08/04/23 110 Normal [facility] Lab Reportson 06-10-2023 Lab Reports [id number]#1.00CD:127 Normal [facility] Lab Reportson 06-03-2023 Lab Reports [id number]#1.00CD:127 Normal [facility] Pathology Noteon 06-03-2023 Pathology Note [id number]#[id number]:127 Normal [facility] Alanine aminotransferase [En zymatic activity/volume] in Serum or PlasmaOrdered By: Zac Muniz on 05-31-2023 ALT [Catalytic activity/Vol] 34 U/L 7-52 [facility] Albumin [Mass/volume] in Ser um or Plasma by Bromocresol green (BCG) dye binding methoOrdered By: Zac Muniz on 05-31-2023 Albumin BCG dye [Mass/Vol] 4.4 g/dL 3.5-5.7 [facility] Alkaline phosphatase [Enzyma tic activity/volume] in Serum or PlasmaOrdered By: Zac Muniz on 05-31-2023 ALP [Catalytic activity/Vol] 82 U/L 34-104 [facility] Aspartate aminotransferase [ Enzymatic activity/volume] in Serum or PlasmaOrdered By: Zac Muniz on 05-31-2023 AST [Catalytic activity/Vol] 24 U/L 13-39 [facility] Automated erythrocytes count in urine sediment (number/area)Ordered By: Christine Sanchez on 05-31-2023 RBC Auto (Urine sed) [#/Area] 1-2 [HPF] 0-4 [facility] Automated leukocytes count i n urine sediment (number/area)Ordered By: Christine Sanchez on 05-31-2023 WBC Auto (Urine sed) [#/Area] 0-1 [HPF] 0-4 [facility] Basophils Auto (Bld) [#/Vol] Ordered By: Christine Sanchez on 05-31-2023 Basophils (Bld) [#/Vol] 0.0 10*3/uL 0.0-0.2 [facility] Basophils/100 WBC Auto (Bld) Ordered By: Christine Sanchez on 05-31-2023 Basophils/100 WBC (Bld) 0.8 % . [facility] Bilirubin Test strip Ql (U)O rdered By: Christine Sanchez on 05-31-2023 Bilirubin Ql (U) Negative Negative [facility] Bilirubin.total [Mass/volume ] in Serum or PlasmaOrdered By: Zac Muniz on 05-31-2023 Bilirubin [Mass/Vol] 0.8 mg/dL 0.3-1.0 [facility] Calcium [Mass/volume] in Ser um or PlasmaOrdered By: Zac Muniz on 05-31-2023 Calcium [Mass/Vol] 9.1 mg/dL 8.6-10.3 [facility] Carbon dioxide, total [Moles /volume] in Serum or PlasmaOrdered By: Zac Muniz on 05-31-2023 CO2 [Moles/Vol] 24.0 mmol/L 21.0-31.0 [facility] Chloride [Moles/volume] in S ace or PlasmaOrdered By: Zac Muniz on 05-31-2023 Chloride [Moles/Vol] 106 mmol/L 98-107 [facility] Color Auto (U)Ordered By: Marianna Arellano on 05-31-2023 Color (U) Yellow Yellow [facility] Complement C3on 05-31-2023 Complement C3 132 mg/dL Normal 82-167 [facility] Comment on above: Result Comment: Perf ormed at: CB - [facility] [place] [id number] [place], [place] [id number] Maintenance Machinist: Richy Ardon PhD, Phone: [phone] Performed By: #### O XAL 24HRU, U24 CA, MAG 24HRU, CITRIC UR, PHOS 24HRU, URIC 24HRU #### [facility] , #### COL T V, U24 NA, CREA24 #### [facility] [address] [place] [address] Complement C4on 05-31-2023 Complement C4 16 mg/dL Normal 12-38 [facility] Comment on above: Result Comment: PERF ORMED BY: [place] [address] PATHOLOGIST [employer] OLMAN ALBARRAN M.D. Performed By: #### O XAL 24HRU, U24 CA, MAG 24HRU, CITRIC UR, PHOS 24HRU, URIC 24HRU #### [facility] , #### COL T V, U24 NA, CREA24 #### [address] Complement Total (CH50)on Complement Total (CH50) 60 Normal >41 [facility] Comment on above: Result Comment: Age Male Female 1 - 30 days Not Estab. Not Estab. 31 days - 6 months >32 >20 7 months - 17 years >39 >39 >17 years >41 >41 NOTE: The adult ( >17 years ) reference interval range is used to flag abnormals on this report. If the patient is 17 years old or younger, use the table above to determine out of range values. Performed at: - [facility] [id number] Maintenance Machinist: Richy Ardon PhD, Phone: [phone] PERFORMED BY: [place] [address] PATHOLOGIST [employer] OLMAN ALBARRAN M.D. Performed By: #### O XAL 24HRU, U24 CA, MAG 24HRU, CITRIC UR, PHOS 24HRU, URIC 24HRU #### [facility] , #### COL T V, U24 NA, CREA24 #### [address] Complete Blood Count Auto Di ffon 05-31-2023 Basophils (Bld) [#/Vol] 0.0 10*3/uL Normal 0.0-0.2 [facility] Comment on above: Result Comment: PERF ORMED BY: [place] [address] PATHOLOGIST [employer] OLMAN ALBARRAN M.D. Performed By: #### O XAL 24HRU, U24 CA, MAG 24HRU, CITRIC UR, PHOS 24HRU, URIC 24HRU #### [facility] , #### COL T V, U24 NA, CREA24 #### [address] Basophils/100 WBC (Bld) 0.8 % Normal . [facility] Comment on above: Performed By: #### O XAL 24HRU, U24 CA, MAG 24HRU, CITRIC UR, PHOS 24HRU, URIC 24HRU #### [facility] , #### COL T V, U24 NA, CREA24 #### [address] Eosinophils (Bld) [#/Vol] 0.1 10*3/uL Normal 0.0-0.45 [facility] Comment on above: Performed By: #### O XAL 24HRU, U24 CA, MAG 24HRU, CITRIC UR, PHOS 24HRU, URIC 24HRU #### [facility] , #### COL T V, U24 NA, CREA24 #### [address] Eosinophils/100 WBC (Bld) 1.4 % Normal . [facility] Comment on above: Performed By: #### O XAL 24HRU, U24 CA, MAG 24HRU, CITRIC UR, PHOS 24HRU, URIC 24HRU #### [facility] , #### COL T V, U24 NA, CREA24 #### [address] Erythrocyte distribution width (RBC) [Ratio] 14.9 % High 12.0-14.8 [facility] Comment on above: Performed By: #### O XAL 24HRU, U24 CA, MAG 24HRU, CITRIC UR, PHOS 24HRU, URIC 24HRU #### [facility] , #### COL T V, U24 NA, CREA24 #### [address] Hematocrit (Bld) [Volume fraction] 43.1 % Normal 38.8-50.0 [facility] Comment on above: Performed By: #### O XAL 24HRU, U24 CA, MAG 24HRU, CITRIC UR, PHOS 24HRU, URIC 24HRU #### [facility] , #### COL T V, U24 NA, CREA24 #### [address] Hemoglobin (Bld) [Mass/Vol] 14.9 g/dL Normal 13.0-17.0 [facility] Comment on above: Performed By: #### O XAL 24HRU, U24 CA, MAG 24HRU, CITRIC UR, PHOS 24HRU, URIC 24HRU #### [facility] , #### COL T V, U24 NA, CREA24 #### [address] Lymphocytes (Bld) [#/Vol] 1.3 10*3/uL Normal 1.00-4.8 [facility] Comment on above: Performed By: #### O XAL 24HRU, U24 CA, MAG 24HRU, CITRIC UR, PHOS 24HRU, URIC 24HRU #### [facility] , #### COL T V, U24 NA, CREA24 #### [address] Lymphocytes/100 WBC (Bld) 24.3 % Normal . [facility] Comment on above: Performed By: #### O XAL 24HRU, U24 CA, MAG 24HRU, CITRIC UR, PHOS 24HRU, URIC 24HRU #### [facility] , #### COL T V, U24 NA, CREA24 #### [address] MCH (RBC) [Entitic mass] 30.8 pg Normal 27.5-35.2 [facility] Comment on above: Performed By: #### O XAL 24HRU, U24 CA, MAG 24HRU, CITRIC UR, PHOS 24HRU, URIC 24HRU #### [facility] , #### COL T V, U24 NA, CREA24 #### [address] MCV (RBC) [Entitic vol] 89.1 fL Normal 83.5-101 [facility] Comment on above: Performed By: #### O XAL 24HRU, U24 CA, MAG 24HRU, CITRIC UR, PHOS 24HRU, URIC 24HRU #### [facility] , #### COL T V, U24 NA, CREA24 #### [address] Mean Corpuscular HGB Conc 34.6 g/dL Normal 32.5-35.6 [facility] Comment on above: Performed By: #### O XAL 24HRU, U24 CA, MAG 24HRU, CITRIC UR, PHOS 24HRU, URIC 24HRU #### [facility] , #### COL T V, U24 NA, CREA24 #### [address] Monocytes (Bld) [#/Vol] 0.7 10*3/uL Normal 0.0-0.8 [facility] Comment on above: Performed By: #### O XAL 24HRU, U24 CA, MAG 24HRU, CITRIC UR, PHOS 24HRU, URIC 24HRU #### [facility] , #### COL T V, U24 NA, CREA24 #### [address] Monocytes/100 WBC (Bld) 12.9 % Normal . [facility] Comment on above: Performed By: #### O XAL 24HRU, U24 CA, MAG 24HRU, CITRIC UR, PHOS 24HRU, URIC 24HRU #### [facility] , #### COL T V, U24 NA, CREA24 #### [address] Neutrophils (Bld) [#/Vol] 3.3 10*3/uL Normal 1.8-7.7 [facility] Comment on above: Performed By: #### O XAL 24HRU, U24 CA, MAG 24HRU, CITRIC UR, PHOS 24HRU, URIC 24HRU #### [facility] , #### COL T V, U24 NA, CREA24 #### [address] Neutrophils/100 WBC (Bld) 60.6 % Normal . [facility] Comment on above: Performed By: #### O XAL 24HRU, U24 CA, MAG 24HRU, CITRIC UR, PHOS 24HRU, URIC 24HRU #### [facility] , #### COL T V, U24 NA, CREA24 #### [address] NRBC% 0.1 /100{WBC} Normal 0-0.5 [facility] Comment on above: Performed By: #### O XAL 24HRU, U24 CA, MAG 24HRU, CITRIC UR, PHOS 24HRU, URIC 24HRU #### [facility] , #### COL T V, U24 NA, CREA24 #### [facility] [address] [place] [address] Platelet mean volume (Bld) [Entitic vol] 8.4 fL Normal 6.6-10.1 [facility] Comment on above: Performed By: #### O XAL 24HRU, U24 CA, MAG 24HRU, CITRIC UR, PHOS 24HRU, URIC 24HRU #### [facility] , #### COL T V, U24 NA, CREA24 #### [address] Platelets (Bld) [#/Vol] 178 10*3/uL Normal 150-450 [facility] Comment on above: Performed By: #### O XAL 24HRU, U24 CA, MAG 24HRU, CITRIC UR, PHOS 24HRU, URIC 24HRU #### [facility] , #### COL T V, U24 NA, CREA24 #### [address] RBC (Bld) [#/Vol] 4.84 10*6/uL Normal 3.90-5.60 [facility] Comment on above: Performed By: #### O XAL 24HRU, U24 CA, MAG 24HRU, CITRIC UR, PHOS 24HRU, URIC 24HRU #### [facility] , #### COL T V, U24 NA, CREA24 #### [address] WBC (Bld) [#/Vol] 5.5 10*3/uL Normal 4.1-10.5 [facility] Comment on above: Performed By: #### O XAL 24HRU, U24 CA, MAG 24HRU, CITRIC UR, PHOS 24HRU, URIC 24HRU #### [facility] , #### COL T V, U24 NA, CREA24 #### [facility] [address] [place] [address] Comprehensive Metabolic Pane vivek 05-31-2023 Albumin [Mass/Vol] 4.4 g/dL Normal 3.5-5.7 [facility] Comment on above: Performed By: #### O XAL 24HRU, U24 CA, MAG 24HRU, CITRIC UR, PHOS 24HRU, URIC 24HRU #### [facility] , #### COL T V, U24 NA, CREA24 #### [facility] [address] [place] [address] Albumin/Globulin [Mass ratio] 1.9 {ratio} Normal [facility] Comment on above: Performed By: #### O XAL 24HRU, U24 CA, MAG 24HRU, CITRIC UR, PHOS 24HRU, URIC 24HRU #### [facility] , #### COL T V, U24 NA, CREA24 #### [address] ALP [Catalytic activity/Vol] 82 U/L Normal 34-104 [facility] Comment on above: Result Comment: PERF ORMED BY: [place] [address] PATHOLOGIST [employer]KE [employer]TER OLMAN ALBARRAN M.D. Performed By: #### O XAL 24HRU, U24 CA, MAG 24HRU, CITRIC UR, PHOS 24HRU, URIC 24HRU #### [facility] , #### COL T V, U24 NA, CREA24 #### [address] ALT [Catalytic activity/Vol] 34 U/L Normal 7-52 [facility] Comment on above: Performed By: #### O XAL 24HRU, U24 CA, MAG 24HRU, CITRIC UR, PHOS 24HRU, URIC 24HRU #### [facility] , #### COL T V, U24 NA, CREA24 #### [facility] [address] [place] [address] Anion gap [Moles/Vol] 11.4 mmol/L Normal 6.0-15.0 [facility] Comment on above: Performed By: #### O XAL 24HRU, U24 CA, MAG 24HRU, CITRIC UR, PHOS 24HRU, URIC 24HRU #### [facility] , #### COL T V, U24 NA, CREA24 #### [facility] [address] [place] [address] AST [Catalytic activity/Vol] 24 U/L Normal 13-39 [facility] Comment on above: Performed By: #### O XAL 24HRU, U24 CA, MAG 24HRU, CITRIC UR, PHOS 24HRU, URIC 24HRU #### [facility] , #### COL T V, U24 NA, CREA24 #### [address] Bilirubin [Mass/Vol] 0.8 mg/dL Normal 0.3-1.0 [facility] Comment on above: Performed By: #### O XAL 24HRU, U24 CA, MAG 24HRU, CITRIC UR, PHOS 24HRU, URIC 24HRU #### [facility] , #### COL T V, U24 NA, CREA24 #### [address] Calcium [Mass/Vol] 9.1 mg/dL Normal 8.6-10.3 [facility] Comment on above: Performed By: #### O XAL 24HRU, U24 CA, MAG 24HRU, CITRIC UR, PHOS 24HRU, URIC 24HRU #### [facility] , #### COL T V, U24 NA, CREA24 #### [facility] [address] [place] [address] Chloride [Moles/Vol] 106 mmol/L Normal 98-107 [facility] Comment on above: Performed By: #### O XAL 24HRU, U24 CA, MAG 24HRU, CITRIC UR, PHOS 24HRU, URIC 24HRU #### [facility] , #### COL T V, U24 NA, CREA24 #### [facility] [address] [place] [address] CO2 [Moles/Vol] 24.0 mmol/L Normal 21.0-31.0 [facility] Comment on above: Performed By: #### O XAL 24HRU, U24 CA, MAG 24HRU, CITRIC UR, PHOS 24HRU, URIC 24HRU #### [facility] , #### COL T V, U24 NA, CREA24 #### [facility] [address] [place] [address] Creatinine [Mass/Vol] 1.05 mg/dL Normal 0.70-1.30 [facility] Comment on above: Performed By: #### O XAL 24HRU, U24 CA, MAG 24HRU, CITRIC UR, PHOS 24HRU, URIC 24HRU #### [facility] , #### COL T V, U24 NA, CREA24 #### [address] GFR/1.73 sq M.predicted MDRD (S/P/Bld) [Vol rate/Area] mL/min/{1.73_m2} [facility] Comment on above: Performed By: #### O XAL 24HRU, U24 CA, MAG 24HRU, CITRIC UR, PHOS 24HRU, URIC 24HRU #### [facility] , #### COL T V, U24 NA, CREA24 #### [facility] [address] [place] [address] Globulin (S) [Mass/Vol] 2.3 g/dL [facility] Comment on above: Performed By: #### O XAL 24HRU, U24 CA, MAG 24HRU, CITRIC UR, PHOS 24HRU, URIC 24HRU #### [facility] , #### COL T V, U24 NA, CREA24 #### [facility] [address] [place] [address] Glucose [Mass/Vol] 82 mg/dL Normal 70-100 [facility] Comment on above: Result Comment: [facility] Glucose Reference Range is dependent on time and content of last meal. Glucose of more than 200 mg/dL in a nonstressed, ambulatory subject supports the diagnosis of Diabetes Mellitus. ADA recommended reference range Performed By: #### O XAL 24HRU, U24 CA, MAG 24HRU, CITRIC UR, PHOS 24HRU, URIC 24HRU #### [facility] , #### COL T V, U24 NA, CREA24 #### [address] Potassium [Moles/Vol] 4.4 mmol/L Normal 3.5-5.1 [facility] Comment on above: Performed By: #### O XAL 24HRU, U24 CA, MAG 24HRU, CITRIC UR, PHOS 24HRU, URIC 24HRU #### [facility] , #### COL T V, U24 NA, CREA24 #### [address] Protein [Mass/Vol] 6.7 g/dL Normal 6.4-8.9 [facility] Comment on above: Performed By: #### O XAL 24HRU, U24 CA, MAG 24HRU, CITRIC UR, PHOS 24HRU, URIC 24HRU #### [facility] , #### COL T V, U24 NA, CREA24 #### [address] Sodium [Moles/Vol] 137 mmol/L Normal 136-145 [facility] Comment on above: Performed By: #### O XAL 24HRU, U24 CA, MAG 24HRU, CITRIC UR, PHOS 24HRU, URIC 24HRU #### [facility] , #### COL T V, U24 NA, CREA24 #### [facility] [address] [place] [address] Urea nitrogen [Mass/Vol] 28 mg/dL High 7-25 [facility] Comment on above: Performed By: #### O XAL 24HRU, U24 CA, MAG 24HRU, CITRIC UR, PHOS 24HRU, URIC 24HRU #### [facility] , #### COL T V, U24 NA, CREA24 #### [facility] [address] [place] [address] [place] Creatinine [Mass/volume] in Serum or PlasmaOrdered By: Zac Muniz on 05-31-2023 Creatinine [Mass/Vol] 1.05 mg/dL 0.70-1.30 [facility] Dipstick and Microscopicon 0 05-31-2023 Appearance (U) Clear Normal Clear [facility] Comment on above: Order Comment: URINE COLLECTION TIME (HRS): 24 URINE VOLUME (MILLILTERS): 2960 Performed By: #### O XAL 24HRU, U24 CA, MAG 24HRU, CITRIC UR, PHOS 24HRU, URIC 24HRU #### [facility] , #### COL T V, U24 NA, CREA24 #### [facility] [address] [place] [address] [place] Bacteria,Urine None Seen Normal None Seen [facility] Comment on above: Order Comment: URINE COLLECTION TIME (HRS): 24 URINE VOLUME (MILLILTERS): 2960 Performed By: #### O XAL 24HRU, U24 CA, MAG 24HRU, CITRIC UR, PHOS 24HRU, URIC 24HRU #### [facility] , #### COL T V, U24 NA, CREA24 #### [facility] [address] [place] [address] [place] Bilirubin,Urine Negative Normal Negative [facility] Comment on above: Order Comment: URINE COLLECTION TIME (HRS): 24 URINE VOLUME (MILLILTERS): 2960 Performed By: #### O XAL 24HRU, U24 CA, MAG 24HRU, CITRIC UR, PHOS 24HRU, URIC 24HRU #### [facility] , #### COL T V, U24 NA, CREA24 #### [facility] [address] [place] [address] [place] Color (U) Yellow Normal Yellow [facility] Comment on above: Order Comment: URINE COLLECTION TIME (HRS): 24 URINE VOLUME (MILLILTERS): 2960 Performed By: #### O XAL 24HRU, U24 CA, MAG 24HRU, CITRIC UR, PHOS 24HRU, URIC 24HRU #### [facility] , #### COL T V, U24 NA, CREA24 #### [facility] [address] [place] [address] Glucose Ql (U) Normal Normal Normal [facility] Comment on above: Order Comment: URINE COLLECTION TIME (HRS): 24 URINE VOLUME (MILLILTERS): 2960 Performed By: #### O XAL 24HRU, U24 CA, MAG 24HRU, CITRIC UR, PHOS 24HRU, URIC 24HRU #### [facility] , #### COL T V, U24 NA, CREA24 #### [facility] [address] [place] [address] Hyaline Casts,Urine 0-8 Normal 0-8 [facility] Comment on above: Order Comment: URINE COLLECTION TIME (HRS): 24 URINE VOLUME (MILLILTERS): 2960 Result Comment: PERF ORMED BY: [place] [address] PATHOLOGIST [employer] OLMAN ALBARRAN M.D. Performed By: #### O XAL 24HRU, U24 CA, MAG 24HRU, CITRIC UR, PHOS 24HRU, URIC 24HRU #### [facility] , #### COL T V, U24 NA, CREA24 #### [facility] [address] [place] [address] Ketones Ql (U) Trace High Negative [facility] Comment on above: Order Comment: URINE COLLECTION TIME (HRS): 24 URINE VOLUME (MILLILTERS): 2960 Performed By: #### O XAL 24HRU, U24 CA, MAG 24HRU, CITRIC UR, PHOS 24HRU, URIC 24HRU #### [facility] , #### COL T V, U24 NA, CREA24 #### [facility] [address] [place] [address] Leukocyte esterase Test strip Ql (U) Negative Normal Negative [facility] Comment on above: Order Comment: URINE COLLECTION TIME (HRS): 24 URINE VOLUME (MILLILTERS): 2960 Performed By: #### O XAL 24HRU, U24 CA, MAG 24HRU, CITRIC UR, PHOS 24HRU, URIC 24HRU #### [facility] , #### COL T V, U24 NA, CREA24 #### [facility] [address] [place] [address] [place] Nitrite,Urine Negative Normal Negative [facility] Comment on above: Order Comment: URINE COLLECTION TIME (HRS): 24 URINE VOLUME (MILLILTERS): 2960 Performed By: #### O XAL 24HRU, U24 CA, MAG 24HRU, CITRIC UR, PHOS 24HRU, URIC 24HRU #### [facility] , #### COL T V, U24 NA, CREA24 #### [address] Occult Blood,Urine Negative Normal Negative [facility] Comment on above: Order Comment: URINE COLLECTION TIME (HRS): 24 URINE VOLUME (MILLILTERS): 2960 Performed By: #### O XAL 24HRU, U24 CA, MAG 24HRU, CITRIC UR, PHOS 24HRU, URIC 24HRU #### [facility] , #### COL T V, U24 NA, CREA24 #### [address] pH (U) 5.5 [pH] Normal 5.0-9.0 [facility] Comment on above: Order Comment: URINE COLLECTION TIME (HRS): 24 URINE VOLUME (MILLILTERS): 2960 Performed By: #### O XAL 24HRU, U24 CA, MAG 24HRU, CITRIC UR, PHOS 24HRU, URIC 24HRU #### [facility] , #### COL T V, U24 NA, CREA24 #### [facility] [address] [place] [address] [place] Protein,Urine Trace High Negative [facility] Comment on above: Order Comment: URINE COLLECTION TIME (HRS): 24 URINE VOLUME (MILLILTERS): 2960 Performed By: #### O XAL 24HRU, U24 CA, MAG 24HRU, CITRIC UR, PHOS 24HRU, URIC 24HRU #### [facility] , #### COL T V, U24 NA, CREA24 #### [facility] [address] RBC,Urine 1-2 Normal 0-4 [facility] Comment on above: Order Comment: URINE COLLECTION TIME (HRS): 24 URINE VOLUME (MILLILTERS): 2960 Performed By: #### O XAL 24HRU, U24 CA, MAG 24HRU, CITRIC UR, PHOS 24HRU, URIC 24HRU #### [facility] , #### COL T V, U24 NA, CREA24 #### [address] Specificy Monette,Urine 1.023 Normal 1.001-1.03 0 [facility] Comment on above: Order Comment: URINE COLLECTION TIME (HRS): 24 URINE VOLUME (MILLILTERS): 2960 Performed By: #### O XAL 24HRU, U24 CA, MAG 24HRU, CITRIC UR, PHOS 24HRU, URIC 24HRU #### [facility] , #### COL T V, U24 NA, CREA24 #### [address] Squamous Epithelial Cell,Urine None Seen Normal 0-2 [facility] Comment on above: Order Comment: URINE COLLECTION TIME (HRS): 24 URINE VOLUME (MILLILTERS): 2960 Performed By: #### O XAL 24HRU, U24 CA, MAG 24HRU, CITRIC UR, PHOS 24HRU, URIC 24HRU #### [facility] , #### COL T V, U24 NA, CREA24 #### [facility] [address] [place] [address] Urobilinogen,Urine Normal Normal Normal [facility] Comment on above: Order Comment: URINE COLLECTION TIME (HRS): 24 URINE VOLUME (MILLILTERS): 2960 Performed By: #### O XAL 24HRU, U24 CA, MAG 24HRU, CITRIC UR, PHOS 24HRU, URIC 24HRU #### [facility] , #### COL T V, U24 NA, CREA24 #### [facility] [address] [place] [address] WBC LM.HPF (Urine sed) [#/Area] 0 /[HPF] Normal 0-4 [facility] Comment on above: Order Comment: URINE COLLECTION TIME (HRS): 24 URINE VOLUME (MILLILTERS): 2960 Performed By: #### O XAL 24HRU, U24 CA, MAG 24HRU, CITRIC UR, PHOS 24HRU, URIC 24HRU #### [facility] , #### COL T V, U24 NA, CREA24 #### [address] Eosinophils Auto (Bld) [#/Vo l]Ordered By: Christine Sanchez on 05-31-2023 Eosinophils (Bld) [#/Vol] 0.1 10*3/uL 0.0-0.45 [facility] Eosinophils/100 WBC Auto (Bl d)Ordered By: Christine Sanchez on 05-31-2023 Eosinophils/100 WBC (Bld) 1.4 % . [facility] Erythrocyte Sedimentation Ra bruno 05-31-2023 ESR (Bld) [Velocity] 6 mm/h Normal 0-19 [facility] Comment on above: Result Comment: PERF ORMED BY: [place] [address] PATHOLOGIST [employer]KE [employer] OLMAN ALBARRAN M.D. Performed By: #### O XAL 24HRU, U24 CA, MAG 24HRU, CITRIC UR, PHOS 24HRU, URIC 24HRU #### [facility] , #### COL T V, U24 NA, CREA24 #### [address] Erythrocyte distribution wid th Auto (RBC) [Ratio]Ordered By: Christine Sanchez on 05-31-2023 Erythrocyte distribution width (RBC) [Ratio] 14.9 % 12.0-14.8 [facility] Erythrocyte sedimentation ra te by Photometric methodOrdered By: Christine Sanchez on 05-31-2023 ESR Photometric method (Bld) [Velocity] 6 mm/hr 0-19 [facility] Globulin Calc (S) [Mass/Vol] Ordered By: Zac Muniz on 05-31-2023 Globulin (S) [Mass/Vol] 2.3 g/dL [facility] Glucose [Mass/volume] in Ser um or PlasmaOrdered By: Zac Muniz on 05-31-2023 Glucose [Mass/Vol] 82 mg/dL 70-100 [facility] Comment on above: ADA recommended refe rence rangeRandom Glucose Reference Range is dependent on time and content of last meal. Glucose of more than 200 mg/dL in a nonstressed, ambulatory subject supports the diagnosis of Diabetes Mellitus. Hematocrit Auto (Bld) [Volum e fraction]Ordered By: Christine Sanchez on 05-31-2023 Hematocrit (Bld) [Volume fraction] 43.1 % 38.8-50.0 [facility] Hemoglobin [Mass/volume] in BloodOrdered By: Christine Sanchez on 05-31-2023 Hemoglobin (Bld) [Mass/Vol] 14.9 g/dL 13.0-17.0 [facility] Ketones Auto test strip (U) [Mass/Vol]Ordered By: Christine Sanchez on 05-31-2023 Ketones (U) [Mass/Vol] Trace Negative [facility] - UrinalysisOrder ed By: Christine Sanchez on 05-31-2023 Hyaline casts LM Ql (Urine sed) 0-8 [LPF] 0-8 [facility] Leukocytes [#/volume] correc nat for nucleated erythrocytes in Blood by Automated counOrdered By: Christine Sanchez on 05-31-2023 WBC corrected for nucl RBC Auto (Bld) [#/Vol] 5.5 10*3/uL 4.1-10.5 [facility] Lymphocytes Auto (Bld) [#/Vo l]Ordered By: Christine Sanchez on 05-31-2023 Lymphocytes (Bld) [#/Vol] 1.3 10*3/uL 1.00-4.8 [facility] Lymphocytes/100 WBC Auto (Bl d)Ordered By: Christine Sanchez on 05-31-2023 Lymphocytes/100 WBC (Bld) 24.3 % . [facility] MCH Auto (RBC) [Entitic mass ]Ordered By: Christine Sanchez on 05-31-2023 MCH (RBC) [Entitic mass] 30.8 pg 27.5-35.2 [facility] MCHC Auto (RBC) [Mass/Vol]Or dered By: Christine Sanchez on 05-31-2023 MCHC (RBC) [Mass/Vol] 34.6 g/dL 32.5-35.6 [facility] MCV Auto (RBC) [Entitic vol] Ordered By: Christine Sanchez on 05-31-2023 MCV (RBC) [Entitic vol] 89.1 fL 83.5-101 [facility] Monocytes Auto (Bld) [#/Vol] Ordered By: Christine Sanchez on 05-31-2023 Monocytes (Bld) [#/Vol] 0.7 10*3/uL 0.0-0.8 [facility] Monocytes/100 WBC Auto (Bld) Ordered By: Christine Sanchez on 05-31-2023 Monocytes/100 WBC (Bld) 12.9 % . [facility] Neutrophils Auto (Bld) [#/Vo l]Ordered By: Christine Sanchez on 05-31-2023 Neutrophils (Bld) [#/Vol] 3.3 10*3/uL 1.8-7.7 [facility] Neutrophils/100 WBC Auto (Bl d)Ordered By: Christine Sanchez on 05-31-2023 Neutrophils/100 WBC (Bld) 60.6 % . [facility] Nitrite Test strip Ql (U)Ord ered By: Christine Sanchez on 05-31-2023 Nitrite Ql (U) Negative Negative [facility] No Panel InformationOrdered By: Zac Muniz on 05-31-2023 Estimated GFR (CKD-EPI) > 60.0 mL/Min [facility] Creatinine Clearance (Chem N/A [facility] No Panel InformationOrdered By: Christine Sanchez on 05-31-2023 Total Complement (CH50) 60 U/mL >41 [facility] Comment on above: Age Male Female 1 - 30 days Not Estab. Not Estab. 31 days - 6 months >32 >20 7 months - 17 years >39 >39 >17 years >41 >41 NOTE: The adult ( >17 years ) reference interval range is used to flag abnormals on this report. If the patient is 17 years old or younger, use the table above to determine out of range values.Performed at: [facility] [id number] Director: Richy Ardon PhD, Phone: [phone] Nucleated erythrocytes [Pres ence] in Blood by Automated countOrdered By: Christine Sanchez on 05-31-2023 Nucleated RBC Auto Ql (Bld) 0.1 /100{WBC} 0-0.5 [facility] Platelet mean volume Auto (B ld) [Entitic vol]Ordered By: Christine Sanchez on 05-31-2023 Platelet mean volume (Bld) [Entitic vol] 8.4 fL 6.6-10.1 [facility] Platelets Auto (Bld) [#/Vol] Ordered By: Christine Sanchez on 05-31-2023 Platelets (Bld) [#/Vol] 178 10*3/uL 150-450 [facility] Potassium [Moles/volume] in Serum or PlasmaOrdered By: Zac Muniz on 05-31-2023 Potassium [Moles/Vol] 4.4 mmol/L 3.5-5.1 [facility] Protein Auto test strip (U) [Mass/Vol]Ordered By: Christine Sanchez on 05-31-2023 Protein (U) [Mass/Vol] Trace mg/dL Negative [facility] Protein [Mass/volume] in Ser um or PlasmaOrdered By: Zac Muniz on 05-31-2023 Protein [Mass/Vol] 6.7 g/dL 6.4-8.9 [facility] RBC Auto (Bld) [#/Vol]Ordere d By: Christine Sanchez on 05-31-2023 RBC (Bld) [#/Vol] 4.84 10*6/uL 3.90-5.60 [facility] Serum or plasma albumin/glob ulin mass ratioOrdered By: Zac Muniz on 05-31-2023 Albumin/Globulin [Mass ratio] 1.9 {ratio} [facility] Serum or plasma anion gap de terminationOrdered By: Zac Muniz on 05-31-2023 Anion gap [Moles/Vol] 11.4 mmol/L 6.0-15.0 [facility] Serum or plasma complement C 3 measurement (mass/volume)Ordered By: Christine Sanchez on 05-31-2023 Complement C3 [Mass/Vol] 132 mg/dL 82-167 [facility] Comment on above: Performed at: [place] [id number] Director: Richy Ardon PhD, Phone: [phone] Serum or plasma complement C 4 measurement (mass/volume)Ordered By: Christine Sanchez on 05-31-2023 Complement C4 [Mass/Vol] 16 mg/dL 12-38 [facility] Sodium [Moles/volume] in Ser um or PlasmaOrdered By: Zac Muniz on 05-31-2023 Sodium [Moles/Vol] 137 mmol/L 136-145 [facility] Specific gravity Auto test s trip (U) [Rel density]Ordered By: Christine Sanchez on 05-31-2023 Specific gravity (U) [Rel density] 1.023 1.001-1.03 0 [facility] Squamous epithelial cells de tection in urine sediment by light microscopyOrdered By: Christine Sanchez on 05-31-2023 Epithelial cells.squamous LM Ql (Urine sed) None seen [HPF] 0-2 [facility] Urea nitrogen [Mass/volume] in Serum or PlasmaOrdered By: Zac Muniz on 05-31-2023 Urea nitrogen [Mass/Vol] 28 mg/dL 7-25 [facility] Urine bacteria detection by automated methodOrdered By: Christine Sanchez on 05-31-2023 Bacteria Auto Ql (U) None seen None Seen [facility] Urine clarity by refractomet ry automatedOrdered By: Christine Sanchez on 05-31-2023 Clarity Refractometry automated (U) Clear Clear [facility] Urine glucose measurement by automated test strip (mass/volume)Ordered By: Christine Sanchez on 05-31-2023 Glucose Auto test strip (U) [Mass/Vol] Normal mg/dL Normal [facility] Urine hemoglobin detection b y automated test stripOrdered By: Christine Sanchez on 05-31-2023 Hemoglobin Auto test strip Ql (U) Negative Negative [facility] Urine leukocyte esterase det ection by automated test stripOrdered By: Christine Sanchez on 05-31-2023 Leukocyte esterase Auto test strip Ql (U) Negative Negative [facility] Urobilinogen Auto test strip (U) [Mass/Vol]Ordered By: Christine Sanchez on 05-31-2023 Urobilinogen (U) [Mass/Vol] Normal mg/dL Normal [facility] WBC Auto (Bld) [#/Vol]Ordere d By: Christine Sanchez on 05-31-2023 WBC (Bld) [#/Vol] 5.5 10*3/uL 4.1-10.5 [facility] pH Auto test strip (U)Ordere d By: Christine Sanchez on 05-31-2023 pH (U) 5.5 [pH] 5.0-9.0 [facility] Provider Letteron 05-20-2023 Provider Letter (Inserted Image. Nikki ble to display) May 20, 2023 VALENTIN TORRE [address] [place] [id number] : 1955 Dear Valentin Torre, We have been trying to reach you with no success. It is important that you return our call upon receiving this letter. Also, at the time of your call, please provide us with your current information. Thank you for your prompt attention to this matter. Sincerely, [facility] [address] [place] [id number] Normal [facility] Ammonium urate crystals dete ction in stone by infrared spectroscopyOrdered By: Zac Muniz on 05-18-2023 Ammonium urate crystals Infrared spectroscopy Ql (Stone) N/A [facility] Calcium bilirubinate measure mentOrdered By: Zac Muniz on 05-18-2023 Calcium bilirubinate (Stone) [Mass fraction] N/A [facility] Calcium carbonate measuremen tOrdered By: Zac Muniz on 05-18-2023 Calcium carbonate (Stone) [Mass fraction] N/A [facility] Calcium hydrogen phosphate d ihydrate/Total in StoneOrdered By: Zac Muniz on 05-18-2023 Calcium hydrogen phosphate dihydrate (Stone) [Mass fraction] N/A [facility] Calcium oxalate dihydrate cr ystals detection in stone by infrared spectroscopyOrdered By: Zac Muniz on 05-18-2023 Calcium oxalate dihydrate crystals Infrared spectroscopy Ql (Stone) N/A [facility] Calcium oxalate monohydrate/ Total in StoneOrdered By: Zacgreyson Muniz on 05-18-2023 Calcium oxalate monohydrate (Stone) [Mass fraction] N/A [facility] Calcium phosphate measuremen tOrdered By: Zac Muniz on 05-18-2023 Calcium phosphate (Stone) [Mass fraction] N/A [facility] Calculi, Urinaryon 3 Color (U) Alexander Normal . [facility] Comment on above: Performed By: #### C ALCULI #### [facility] , Comment: Normal . [facility] Comment on above: Result Comment: Marcio joyner questions regarding Calculi Analysis [facility] at: [phone]. Performed By: #### C ALCULI #### [facility] , Composition Normal . [facility] Comment on above: Result Comment: Perc entage (Represents the % composition) Performed By: #### C ALCULI #### [facility] , Disclaimer: Normal . [facility] Comment on above: Result Comment: This test was developed and its performance characteristics determined by [facility]. It has not been cleared or approved by the Food and Drug Administration. Performed at: [facility] - [address] [id number] Maintenance Machinist: Jimmy Warner PhD, Phone: [phone] Performed By: #### C ALCULI #### [facility] , Note Normal . [facility] Comment on above: Result Comment: Calc yovani report will follow via computer, mail or quick mixer operator delivery. PERFORMED BY: [facility] [place] [address] PATHOLOGIST [employer]KE [employer]TER OLMAN ALBARRAN M.D. Performed By: #### C ALCULI #### [facility] , Photo Normal . [facility] Comment on above: Result Comment: Phot ograph will follow under a separate cover Performed By: #### C ALCULI #### [facility] , Size 4x4 Normal . [facility] Comment on above: Result Comment: Mult iple pieces received. Dimensions of the largest piece reported. Performed By: #### C ALCULI #### [facility] , Source Normal . [facility] Comment on above: Result Comment: Not provided Performed By: #### C ALCULI #### [facility] , Uric Acid 100 % Normal . [facility] Comment on above: Performed By: #### C ALCULI #### [facility] , Weight 20 Normal . [facility] Comment on above: Performed By: #### C ALCULI #### [facility] , Calculus analysis interpreta tion in stoneOrdered By: Zac Muniz on 05-18-2023 Calculus analysis [Interp] N/A [facility] Calculus analysis [Interp] See comment . [facility] Comment on above: Physician questions regarding Calculi [facility] at: [phone]. Calculi report will follow via computer, mail or courierdelivery. Calculus analysis with calcu silva photography interpretation in stoneOrdered By: Zac Muniz on 05-18-2023 Calculus analysis with calculus photography [Interp] See comment . [facility] Comment on above: Photograph will foll ow under a separate cover Cellular material measuremen t in stone by estimated (mass/mass)Ordered By: Zac Muniz on 05-18-2023 Cellular material Est (Stone) [Mass/Mass] N/A [facility] Cholesterol/Total in StoneOr dered By: Zac Muniz on 05-18-2023 Cholesterol (Stone) [Mass fraction] N/A [facility] Composition of stoneOrdered By: Zac Muniz on 05-18-2023 Composition Nom (Stone) See comment . [facility] Comment on above: Percentage (Represen ts the % composition) Cystine measurementOrdered B y: Zac Muniz on 05-18-2023 Cystine (Unsp spec) [Moles/Vol] N/A [facility] Determination of color of ca lculusOrdered By: Zac Muniz on 05-18-2023 Color (Stone) Alexander . [facility] Hydroxyapatite [Energy Diffe rence] in 24 hour UrineOrdered By: Zac Muniz on 05-18-2023 Hydroxyapatite (24H U) [Energy diff] N/A [facility] Vivek 05-18-2023 L ------- Specimen: [id number] Received: 05/31/23 Status: MAHSA Tripathi Num: [id number] Spec Type: Surgical Subm Dr: Zac Muniz MD Tissues: A Urinary Calculus (URINARY CALCULI) Procedures: Level 1 Gross Age/ Patient Sex Location Account Attending Physician Valentin Torre 68/M DC [id number] Zac Muniz MD SPEC NUM: [id number] RECD: 05/31/23 STATUS: MAHSA TRIPATHI NUM: [id number] MAINOR: 05/18/23 [facility] DR: Zac Muniz MD ENTERED: 05/31/[address] [facility] [address]: GABRIELE TYPE: Surgical DEPT: S ORDERED: Level 1 Gross ORDERED: Level 1 Gross Pathological Diagnosis Urinary stone, extraction: - Consistent with urinary calculi, see Gross Description Clinical Information None provided Gross Description Received fresh labeled with the patient's name, date of and urinary calculi per requisition is one alexander-white stone measuring 0.3 cm. Entirely submitted for chemical analysis. Gross examination only. CPT Codes 42470 Specimen: [id number] Received: 05/31/23 Status: MAHSA Tripathi Num: [id number] Spec Type: Surgical Subm Dr: Zac Muniz MD Tissues: A Urinary Calculus (URINARY CALCULI) Procedures: Level 1 Gross Patient: Valentin Torre [id number] (Continued) Signed (signature on file) Shaggy Vega MD 06/01/23 1635 Normal [facility] Measurement of proportion of calculus composed of dried blood (mass/mass)Ordered By: Zac Muniz on 05-18-2023 Blood.dried (Stone) [Mass fraction] N/A [facility] Newberyite/Total in StoneOrd ered By: Zac Muniz on 05-18-2023 Newberyite (Stone) [Mass fraction] N/A [facility] No Panel InformationOrdered By: Zac Muniz on 05-18-2023 Stone 2,8 Dihydroxyadenine N/A [facility] Stone Analysis Disclaimer See comment . [facility] Comment on above: This test was [employer] and its performance characteristicsdetermined by [facility]. It has not been cleared or approvedby the Food and Drug Administration.Performed at: [facility] - [facility] [id number] Director: Jimmy Warner PhD, Phone: [phone] Stone Bilirubinate N/A [facility] Stone Calcium Palmitate N/A [facility] Stone Calcium Stearate N/A [facility] Stone Carbonate Apatite N/A [facility] Stone Drug or Metabolite N/A [facility] Stone Other Constituent N/A [facility] Stone Xanthine N/A [facility] Size [Entitic volume] of Sto neOrdered By: Zac Muniz on 05-18-2023 Size (Stone) [Entitic vol] 4x4 mm . [facility] Comment on above: Multiple pieces rece ived. Dimensions of the largest piecereported. Sodium urate crystals detect ion in stone by infrared spectroscopyOrdered By: Zac Muniz on 05-18-2023 Sodium urate crystals Infrared spectroscopy Ql (Stone) N/A [facility] Specimen source subject [Typ e]Ordered By: Zac Muniz on 05-18-2023 Specimen source subject Nom See comment . [facility] Comment on above: Not provided Triamterene measurement in c alculusOrdered By: Zac Muniz on 05-18-2023 Triamterene (Stone) [Mass fraction] N/A [facility] Triple phosphate/Total in St oneOrdered By: Zac Muniz on 05-18-2023 Triple phosphate (Stone) [Mass fraction] N/A [facility] Uric acid dihydrate crystals detection in stone by infrared spectroscopyOrdered By: Zac Muniz on 05-18-2023 Urate dihydrate crystals Infrared spectroscopy Ql (Stone) 100 % . [facility] Urate dihydrate crystals Infrared spectroscopy Ql (Stone) N/A [facility] Patient Correspondenceon Patient Correspondence [id number]:127 Normal [facility] RAD - MISCon 05-10-2023 RAD - MISC [id number]:127 Normal [facility] ED Note-Physicianon 05-09-20 ED Note-Physician [id number]:127 Normal [facility] Patient Educationon 05-09-20 Patient Education Nephrology Dietary Guidelines to Help Prevent Kidney Stones Kidney stones are deposits of minerals and salts that form inside your kidneys. Your risk of developing kidney stones may be greater depending on your diet, your lifestyle, the medicines you take, and whether you have certain medical conditions. Most people can lower their chances of developing kidney stones by following the instructions below. Your dietitian may give you more specific instructions depending on your overall health and the type of kidney stones you tend to develop. What are tips for following this plan? Reading food labels ? Choose foods with no salt added or low-salt labels. Limit your salt (sodium) intake to less than 1,500 mg a day. ? Choose foods with calcium for each meal and snack. Try to eat about 300 mg of calcium at each meal. Foods that contain 200?500 mg of calcium a serving include: ? 8 oz (237 mL) of milk, jbqnmqv-brdlrxwowbsl-zwqam milk, and calcium-fortifiedfruit juice. Calcium-fortified means that calcium has been added to these drinks. ? 8 oz (237 mL) of kefir, yogurt, and soy yogurt. ? 4 oz (114 g) of tofu. ? 1 oz (28 g) of cheese. ? 1 cup (150 g) of dried figs. ? 1 cup (91 g) of cooked broccoli. ? One 3 oz (85 g) can of sardines or mackerel. Most people need 1,000?1,500 mg of calcium a day. Talk to your dietitian about how much calcium is recommended for you. Shopping ? Buy plenty of fresh fruits and vegetables. Most people do not need to avoid fruits and vegetables, even if these foods contain nutrients that may contribute to kidney stones. ? When shopping for convenience foods, choose: ? Whole pieces of fruit. ? Pre-made salads with dressing on the side. ? Low-fat fruit and yogurt smoothies. ? Avoid buying frozen meals or prepared deli foods. These can be high in sodium. ? Look for foods with live cultures, such as yogurt and kefir. ? Choose high-fiber grains, such as whole-wheat breads, oat bran, and wheat cereals. Cooking ? Do not add salt to food when cooking. Place a salt shaker on the table and allow each person to add his or her own salt to taste. ? Use vegetable protein, such as beans, textured vegetable protein (TVP), or tofu, instead of meat in pasta, casseroles, and soups. Meal planning ? Eat less salt, if told by your dietitian. To do this: ? Avoid eating processed or pre-made food. ? Avoid eating fast food. ? Eat less animal protein, including cheese, meat, poultry, or fish, if told by your dietitian. To do this: ? Limit the number of times you have meat, poultry, fish, or cheese each week. Eat a diet free of meat at least 2 days a week. ? Eat only one serving each day of meat, poultry, fish, or seafood. ? When you prepare animal protein, cut pieces into small portion sizes. For most meat and fish, one serving is about the size of the palm of your hand. ? Eat at least five servings of fresh fruits and vegetables each day. To do this: ? Keep fruits and vegetables on hand for snacks. ? Eat one piece of fruit or a handful of berries with breakfast. ? Have a salad and fruit at lunch. ? Have two kinds of vegetables at dinner. ? Limit foods that are high in a substance called oxalate. These include: ? Spinach (cooked), rhubarb, beets, sweet potatoes, and Chadian chard. ? Peanuts. ? Potato chips, belarusian fries, and baked potatoes with skin on. ? Nuts and nut products. ? Chocolate. ? If you regularly take a diuretic medicine, make sure to eat at least 1 or 2 servings of fruits or vegetables that are high in potassium each day. These include: ? Avocado. ? Banana. ? [place], prune, carrot, or tomato juice. ? Baked potato. ? Cabbage. ? Beans and split peas. Lifestyle ? Drink enough fluid to keep your urine pale yellow. This is the most important thing you can do. Spread your fluid intake throughout the day. ? If you drink alcohol: ? Limit how much you use to: ? 0?1 drink a day for women who are not . ? 0?2 drinks a day for men. ? Be aware of how much alcohol is in your drink. In the [place] one drink equals one 12 oz bottle of beer (355 mL), one 5 oz glass of wine (148 mL), or one 1? oz glass of hard liquor (44 mL). ? Lose weight if told by your health care provider. Work with your dietitian to find an eating plan and weight loss strategies that work best for you. General information ? Talk to your health care provider and dietitian about taking daily supplements. You may be told the following depending on your health and the cause of your kidney stones: ? Not to take supplements with vitamin C. ? To take a calcium supplement. ? To take a daily probiotic supplement. ? To take other supplements such as magnesium, fish oil, or vitamin B6. ? Take bzoi-vbt-wwoydfh and prescription medicines only as told by your health care provider. These include supplements. What foods should I limit? Limit your in (more content not included)... Normal [facility] Tobacco Screening.on 023 Adult depression screening assessment No Merged with [facility] [employer] DO Work Phone: Fall risk assessment a) No falls within the last year Merged with [facility] [employer] DO Work Phone: Tobacco use status CP b) No Merged with [facility] [employer] DO Work Phone: Urology Office/Clinic Noteon 05-09-2023 Urology Office/Clinic Note Chief Complaint left flank pain HPI Staff New pt f/u to [facility] ED visit 05/07/23 for worsening left flank pain. Pt states that his flank pain started last Tuesday and is off and on. Pt has a hx of kidney stones but has always been able to pass them on is own. Dysuria: no Incomplete bladder emptying: no Hematuria: saw blood a couple of days ago Frequency: every 2 hours Urgency: yes Nocturia: 3x Stream: some straining Leaking: no Post void dripping: yes Wearing pads/ Depends: wears pads changes 1x daily Urge incontinence: no Stress incontinence: no Incontinence without Sensory Awareness: no Abdominal pain: left sided that started last Tuesday Flank pain: left sided Sexual complaints: no History of Present Illness Tests reviewed: reviewed UA, ER records, KUB, CT. I have reviewed the previous health record information and history for this patient. I have reviewed and verified the staff HPI to be accurate for this encounter. There have been no associated fever, chills, flank pain, or blood in the urine. Denies any urinary infections since last encounter. Review of Systems PHQ Score Initial Depression Screen Score: 0 ROS - Provider Constitutional: denies weight loss, denies hot flashes. Eyes: denies eye problems. Gastrointestinal: denies nausea, denies vomiting. Cardiovascular: denies chest pain or angina. Integumentary: no dryness Musculoskeletal: denies musculoskeletal symptoms. ENMT: denies otolaryngeal symptoms. Respiratory: no shortness of breath. Heme/Lymph: denies easy bleeding tendency, denies easy bruising tendency. Psychiatric: no confusion, no anxiety. Genitourinary: See HPI. Physical Exam Vitals & Measurements HR: 89(Peripheral) RR: 16 BP: 126/72 HT: 68 in HT: 173 cm WT: 97.5 kg WT: 214.5 lb BMI: 32.58 General Appearance: alert, no distress, well nourished, well developed male. Head: normocephalic . Eyes: normal orbit and globe. ENMT: normal examination of external ears. Chest: Lungs CTA, respirations non labored. Cardiovascular: regular rate and rhythm. Abdomen: soft, non distended, no tenderness, no mass or organomegaly, no hernia. Genitourinary: normal scrotum, normal testes, normal urethra, normal epididymis, normal vas deferens/spermatic cord. Flank Pain: none. Bladder: nonpalpable. Penis: normal shaft, normal glans. Lymph Nodes: unremarkable palpation of the cervical area. Skin: warm, dry, no bruising. Psychiatric: cooperative, affect appropriate for age, normal judgement, euthymic mood. Assessment/Plan Valentin is a 68 yo male new pt following up to [facility] ER visit on 05/07/23 due to worsening L flank pain, diagnosed with a 3 mm nonobstructing stone on 05/03. Almost out of tramadol from ER. Has taken this med for years. 1. Ureteral stone with hydronephrosis (N13.2: Hydronephrosis with renal and ureteral calculous obstruction) CT AP wo con 05/03/13 - Multiple small bilateral renal stones. Mild left hydronephrosis and hydroureter with periureteral stranding. a stone within a couple centimeters of the ureterovesical junction measuring 3 mm in size. Person review: Several bilateral stones, L > R. KUB 05/09/23 - Kidneys are partially obscured. Tiny stones RMP and [employer]. Corresponding stones were also seen on comparison CT. Not currently having pain. Reviewed imaging with pt. No stone passage. Last had pain yesterday. Unlikely that he has passed stone. Has been straining urine. Can d/c straining if stone passes or after 2 weeks. Recommended pt to increase fluid intake to ten to twelve 16 oz bottles a day, preferably water, clear pop, and sugar free lemonade. PE: LLQ and CVA tenderness. Follow up 3 weeks KUB or sooner if needed. Pt understands and agrees with plan. -Increase Flomax 0.4 mg from qd to bid. Rx sent to [facility]. Cont straining urine. -Start Ketorolac bid prn. SEs discussed. Rx sent to [facility]. -Pt to go to the ER if he were to experience fever, uncontrollable shaking, chills, nausea, vomiting, or pain. 2. Kidney stones (N20.0: Calculus of kidney) See #1. 3. History of kidney stones (Z87.442: Personal history of urinary calculi) Pt has a hx of kidney stones but has always been able to pass them on is own. Three episodes in his lifetime. Discussed metabolic workup including 24 hour urine and blood work for stone prevention. -Complete metabolic workup after current stone passed. 4. Gross hematuria (R31.0: Gross hematuria) Saw clot when he gave sample. UA today shows moderate blood and small leuks. Likely #1 related. Will cont to monitor for resolution. Follow-up With When Contact Information FLAVIO ONEAL, Zac De Oliveira, URL [facility] [address], [place] [address]- Additional Instructions: 3 wks KUB Patient Education Dietary Guidelines to Help Prevent Kidney Stones I, Teena Stanley, personally scribed for Dr. Muniz on 05/09/2023 16:30:56. (more content not included)... [facility] Comment on above: Result Comment: Elec tronically Signed By: FLAVIO ONEAL, Zac De Oliveira\.br\Date and Time Signed: 05/09/23 16:37 EDT\.br\Electronically Co-Signed By: Teena Stanley\.br\Date and Time Co-Signed: 05/09/23 16:31 EDT XR KUBon 05-09-2023 XR KUB [facility] [place] [address] XRay Report Signed Patient: Valentin Torre MR#: [id number] [birth year] : 1955 Acct:[id number] Age/Sex: 68 / M ADM Date: 05/09/23 Loc: XD Room: Type: [facility] Attending Dr: Zac Muniz MD Copies to: Zac Muniz MD Ordering Provider: Zac Muniz MD Date of Service: 05/09/23 XR/XR KUB: N20.0 KUB: COMPARISON: 05/08/[address] 05/03/2023 CLINICAL DATA: Follow-up kidney stones. Supine views of the abdomen and pelvis were obtained. There is some air and stool within the colon. The kidneys are partially obscured. Similar tiny calcifications are again seen overlying the mid and upper pole on the right and the lower pole on the left. Corresponding stones were also seen on the comparison CT. No soft tissue masses are identified. There are postoperative and degenerative changes at the spine. XR/XR KUB IMPRESSION: BILATERAL NEPHROLITHIASIS. Impression dictated by: Christine Alexandra M.D.05/09/2023 3:01 PM Dictation Location: [place] [address] Transcribed By: [facility] 05/09/23 1500 Dictated By: Christine Alexandra MD 05/09/23 1456 Signed By: 05/09/23 1501 [facility] Automated erythrocytes count in urine sediment (number/area)Ordered By: Romel Orta on 05-07-2023 RBC Auto (Urine sed) [#/Area] 1-2 [HPF] 0-4 [facility] Automated leukocytes count i n urine sediment (number/area)Ordered By: Romel Orta on 05-07-2023 WBC Auto (Urine sed) [#/Area] 3-4 [HPF] 0-4 [facility] Basic Metabolic Panelon 04-21 Anion gap [Moles/Vol] 15.4 mmol/L High 6.0-15.0 [facility] Comment on above: Performed By: #### O XAL 24HRU, U24 CA, MAG 24HRU, CITRIC UR, PHOS 24HRU, URIC 24HRU #### [facility] , #### COL T V, U24 NA, CREA24 #### [facility] [address] [place] [address] Calcium [Mass/Vol] 8.8 mg/dL Normal 8.6-10.3 [facility] Comment on above: Performed By: #### O XAL 24HRU, U24 CA, MAG 24HRU, CITRIC UR, PHOS 24HRU, URIC 24HRU #### [facility] , #### COL T V, U24 NA, CREA24 #### [facility] [address] [place] [address] [place] Chloride [Moles/Vol] 105 mmol/L Normal 98-107 [facility] Comment on above: Performed By: #### O XAL 24HRU, U24 CA, MAG 24HRU, CITRIC UR, PHOS 24HRU, URIC 24HRU #### [facility] , #### COL T V, U24 NA, CREA24 #### [facility] [address] [place] [address] [place] CO2 [Moles/Vol] 20.8 mmol/L Low 21.0-31.0 [facility] Comment on above: Performed By: #### O XAL 24HRU, U24 CA, MAG 24HRU, CITRIC UR, PHOS 24HRU, URIC 24HRU #### [facility] , #### COL T V, U24 NA, CREA24 #### [facility] [address] [place] [address] Creatinine [Mass/Vol] 1.94 mg/dL High 0.70-1.30 [facility] Comment on above: Performed By: #### O XAL 24HRU, U24 CA, MAG 24HRU, CITRIC UR, PHOS 24HRU, URIC 24HRU #### [facility] , #### COL T V, U24 NA, CREA24 #### [facility] [address] [place] [address] Creatinine Clr Calc Pharmacy 41.86 [facility] Comment on above: Result Comment: PERF ORMED BY: [place] [address] PATHOLOGIST [employer] OLMAN ALBARRAN M.D. Performed By: #### O XAL 24HRU, U24 CA, MAG 24HRU, CITRIC UR, PHOS 24HRU, URIC 24HRU #### [facility] , #### COL T V, U24 NA, CREA24 #### [facility] [address] [place] [address] GFR/1.73 sq M.predicted MDRD (S/P/Bld) [Vol rate/Area] 37.476 mL/min/{1.73_m2} [facility] Comment on above: Performed By: #### O XAL 24HRU, U24 CA, MAG 24HRU, CITRIC UR, PHOS 24HRU, URIC 24HRU #### [facility] , #### COL T V, U24 NA, CREA24 #### [facility] [address] [place] [address] Glucose [Mass/Vol] 98 mg/dL Normal 70-100 [facility] Comment on above: Result Comment: [place] Glucose Reference Range is dependent on time and content of last meal. Glucose of more than 200 mg/dL in a nonstressed, ambulatory subject supports the diagnosis of Diabetes Mellitus. ADA recommended reference range Performed By: #### O XAL 24HRU, U24 CA, MAG 24HRU, CITRIC UR, PHOS 24HRU, URIC 24HRU #### [facility] , #### COL T V, U24 NA, CREA24 #### [address] Potassium [Moles/Vol] 4.2 mmol/L Normal 3.5-5.1 [facility] Comment on above: Performed By: #### O XAL 24HRU, U24 CA, MAG 24HRU, CITRIC UR, PHOS 24HRU, URIC 24HRU #### [facility] , #### COL T V, U24 NA, CREA24 #### [address] Sodium [Moles/Vol] 137 mmol/L Normal 136-145 [facility] Comment on above: Performed By: #### O XAL 24HRU, U24 CA, MAG 24HRU, CITRIC UR, PHOS 24HRU, URIC 24HRU #### [facility] , #### COL T V, U24 NA, CREA24 #### [address] Urea nitrogen [Mass/Vol] 34 mg/dL High 7-25 [facility] Comment on above: Performed By: #### O XAL 24HRU, U24 CA, MAG 24HRU, CITRIC UR, PHOS 24HRU, URIC 24HRU #### [facility] , #### COL T V, U24 NA, CREA24 #### [facility] [address] [place] [address] Basophils Auto (Bld) [#/Vol] Ordered By: Romel Orta on 05-07-2023 Basophils (Bld) [#/Vol] 0.1 10*3/uL 0.0-0.2 [facility] Basophils/100 WBC Auto (Bld) Ordered By: Romel Orta on 05-07-2023 Basophils/100 WBC (Bld) 0.6 % . [facility] Bilirubin Test strip Ql (U)O rdered By: Romel Orta on 05-07-2023 Bilirubin Ql (U) Negative Negative [facility] Calcium [Mass/volume] in Ser um or PlasmaOrdered By: Romel Orta on 05-07-2023 Calcium [Mass/Vol] 8.8 mg/dL 8.6-10.3 [facility] Carbon dioxide, total [Moles /volume] in Serum or PlasmaOrdered By: Romel Orta on 05-07-2023 CO2 [Moles/Vol] 20.8 mmol/L 21.0-31.0 [facility] Chloride [Moles/volume] in S ace or PlasmaOrdered By: Romel Orta on 05-07-2023 Chloride [Moles/Vol] 105 mmol/L 98-107 [facility] Color Auto (U)Ordered By: Bridgett Orta on 05-07-2023 Color (U) Yellow Yellow [facility] Complete Blood Count Auto Di ffon 05-07-2023 Basophils (Bld) [#/Vol] 0.1 10*3/uL Normal 0.0-0.2 [facility] Comment on above: Result Comment: PERF ORMED BY: [place] [address] PATHOLOGIST [employer] OLMAN ALBARRAN M.D. Performed By: #### O XAL 24HRU, U24 CA, MAG 24HRU, CITRIC UR, PHOS 24HRU, URIC 24HRU #### [facility] , #### COL T V, U24 NA, CREA24 #### [address] Basophils/100 WBC (Bld) 0.6 % Normal . [facility] Comment on above: Performed By: #### O XAL 24HRU, U24 CA, MAG 24HRU, CITRIC UR, PHOS 24HRU, URIC 24HRU #### [facility] , #### COL T V, U24 NA, CREA24 #### [address] Eosinophils (Bld) [#/Vol] 0.1 10*3/uL Normal 0.0-0.45 [facility] Comment on above: Performed By: #### O XAL 24HRU, U24 CA, MAG 24HRU, CITRIC UR, PHOS 24HRU, URIC 24HRU #### [facility] , #### COL T V, U24 NA, CREA24 #### [address] Eosinophils/100 WBC (Bld) 1.1 % Normal . [facility] Comment on above: Performed By: #### O XAL 24HRU, U24 CA, MAG 24HRU, CITRIC UR, PHOS 24HRU, URIC 24HRU #### [facility] , #### COL T V, U24 NA, CREA24 #### [address] Erythrocyte distribution width (RBC) [Ratio] 14.3 % Normal 12.0-14.8 [facility] Comment on above: Performed By: #### O XAL 24HRU, U24 CA, MAG 24HRU, CITRIC UR, PHOS 24HRU, URIC 24HRU #### [facility] , #### COL T V, U24 NA, CREA24 #### [address] Hematocrit (Bld) [Volume fraction] 38.9 % Normal 38.8-50.0 [facility] Comment on above: Performed By: #### O XAL 24HRU, U24 CA, MAG 24HRU, CITRIC UR, PHOS 24HRU, URIC 24HRU #### [facility] , #### COL T V, U24 NA, CREA24 #### [address] Hemoglobin (Bld) [Mass/Vol] 13.7 g/dL Normal 13.0-17.0 [facility] Comment on above: Performed By: #### O XAL 24HRU, U24 CA, MAG 24HRU, CITRIC UR, PHOS 24HRU, URIC 24HRU #### [facility] , #### COL T V, U24 NA, CREA24 #### [address] Lymphocytes (Bld) [#/Vol] 0.6 10*3/uL Low 1.00-4.8 [facility] [facility] Comment on above: Performed By: #### O XAL 24HRU, U24 CA, MAG 24HRU, CITRIC UR, PHOS 24HRU, URIC 24HRU #### [facility] , #### COL T V, U24 NA, CREA24 #### [address] Lymphocytes/100 WBC (Bld) 6.2 % Normal . [facility] Comment on above: Performed By: #### O XAL 24HRU, U24 CA, MAG 24HRU, CITRIC UR, PHOS 24HRU, URIC 24HRU #### [facility] , #### COL T V, U24 NA, CREA24 #### [facility] [address] [place] [address] MCH (RBC) [Entitic mass] 31.3 pg Normal 27.5-35.2 [facility] Comment on above: Performed By: #### O XAL 24HRU, U24 CA, MAG 24HRU, CITRIC UR, PHOS 24HRU, URIC 24HRU #### [facility] , #### COL T V, U24 NA, CREA24 #### [facility] [address] [place] [address] MCV (RBC) [Entitic vol] 88.9 fL Normal 83.5-101 [facility] Comment on above: Performed By: #### O XAL 24HRU, U24 CA, MAG 24HRU, CITRIC UR, PHOS 24HRU, URIC 24HRU #### [facility] , #### COL T V, U24 NA, CREA24 #### [address] Mean Corpuscular HGB Conc 35.2 g/dL Normal 32.5-35.6 [facility] Comment on above: Performed By: #### O XAL 24HRU, U24 CA, MAG 24HRU, CITRIC UR, PHOS 24HRU, URIC 24HRU #### [facility] , #### COL T V, U24 NA, CREA24 #### [address] Monocytes (Bld) [#/Vol] 1.5 10*3/uL High 0.0-0.8 [facility] Comment on above: Performed By: #### O XAL 24HRU, U24 CA, MAG 24HRU, CITRIC UR, PHOS 24HRU, URIC 24HRU #### [facility] , #### COL T V, U24 NA, CREA24 #### [address] Monocytes/100 WBC (Bld) 22.82 % High 0.00-20.00 [facility] Comment on above: Result Comment: For adults in ED, MDW > 20.0 may be associated with a higher risk of sepsis during the first 12 hrs of hospital admission Performed By: #### O XAL 24HRU, U24 CA, MAG 24HRU, CITRIC UR, PHOS 24HRU, URIC 24HRU #### [facility] , #### COL T V, U24 NA, CREA24 #### [address] Monocytes/100 WBC (Bld) 15.4 % Normal . [facility] Comment on above: Performed By: #### O XAL 24HRU, U24 CA, MAG 24HRU, CITRIC UR, PHOS 24HRU, URIC 24HRU #### [facility] , #### COL T V, U24 NA, CREA24 #### [facility] [address] [place] [address] Neutrophils (Bld) [#/Vol] 7.6 10*3/uL Normal 1.8-7.7 [facility] Comment on above: Performed By: #### O XAL 24HRU, U24 CA, MAG 24HRU, CITRIC UR, PHOS 24HRU, URIC 24HRU #### [facility] , #### COL T V, U24 NA, CREA24 #### [address] Neutrophils/100 WBC (Bld) 76.7 % Normal . [facility] Comment on above: Performed By: #### O XAL 24HRU, U24 CA, MAG 24HRU, CITRIC UR, PHOS 24HRU, URIC 24HRU #### [facility] , #### COL T V, U24 NA, CREA24 #### [address] NRBC% 0.1 /100{WBC} Normal 0-0.5 [facility] Comment on above: Performed By: #### O XAL 24HRU, U24 CA, MAG 24HRU, CITRIC UR, PHOS 24HRU, URIC 24HRU #### [facility] , #### COL T V, U24 NA, CREA24 #### [address] Platelet mean volume (Bld) [Entitic vol] 8.3 fL Normal 6.6-10.1 [facility] Comment on above: Performed By: #### O XAL 24HRU, U24 CA, MAG 24HRU, CITRIC UR, PHOS 24HRU, URIC 24HRU #### [facility] , #### COL T V, U24 NA, CREA24 #### [address] Platelets (Bld) [#/Vol] 193 10*3/uL Normal 150-450 [facility] Comment on above: Performed By: #### O XAL 24HRU, U24 CA, MAG 24HRU, CITRIC UR, PHOS 24HRU, URIC 24HRU #### [facility] , #### COL T V, U24 NA, CREA24 #### [facility] [address] [place] [address] RBC (Bld) [#/Vol] 4.38 10*6/uL Normal 3.90-5.60 [facility] Comment on above: Performed By: #### O XAL 24HRU, U24 CA, MAG 24HRU, CITRIC UR, PHOS 24HRU, URIC 24HRU #### [facility] , #### COL T V, U24 NA, CREA24 #### [facility] [address] [place] [address] WBC (Bld) [#/Vol] 9.9 10*3/uL Normal 4.1-10.5 [facility] Comment on above: Performed By: #### O XAL 24HRU, U24 CA, MAG 24HRU, CITRIC UR, PHOS 24HRU, URIC 24HRU #### [facility] , #### COL T V, U24 NA, CREA24 #### [facility] [address] [place] [address] Creatinine [Mass/volume] in Serum or PlasmaOrdered By: Romel Orta on 05-07-2023 Creatinine [Mass/Vol] 1.94 mg/dL 0.70-1.30 [facility] Dipstick and Microscopicon 0 05-07-2023 Appearance (U) Cloudy Critically abnormal Clear [facility] Comment on above: Order Comment: URINE VOLUME (MILLILTERS): [id number] Performed By: #### O XAL 24HRU, U24 CA, MAG 24HRU, CITRIC UR, PHOS 24HRU, URIC 24HRU #### [facility] , #### COL T V, U24 NA, CREA24 #### [facility] [address] [place] [address] Bacteria,Urine None Seen Normal None Seen [facility] Comment on above: Order Comment: URINE VOLUME (MILLILTERS): [id number] Performed By: #### O XAL 24HRU, U24 CA, MAG 24HRU, CITRIC UR, PHOS 24HRU, URIC 24HRU #### [facility] , #### COL T V, U24 NA, CREA24 #### [facility] [address] [place] [address] Bilirubin,Urine Negative Normal Negative [facility] Comment on above: Order Comment: URINE VOLUME (MILLILTERS): [id number] Performed By: #### O XAL 24HRU, U24 CA, MAG 24HRU, CITRIC UR, PHOS 24HRU, URIC 24HRU #### [facility] , #### COL T V, U24 NA, CREA24 #### [facility] [address] [place] [address] Color (U) Yellow Normal Yellow [facility] Comment on above: Order Comment: URINE VOLUME (MILLILTERS): [id number] Performed By: #### O XAL 24HRU, U24 CA, MAG 24HRU, CITRIC UR, PHOS 24HRU, URIC 24HRU #### [facility] , #### COL T V, U24 NA, CREA24 #### [facility] [address] [place] [address] Glucose Ql (U) Normal Normal Normal [facility] Comment on above: Order Comment: URINE VOLUME (MILLILTERS): [id number] Performed By: #### O XAL 24HRU, U24 CA, MAG 24HRU, CITRIC UR, PHOS 24HRU, URIC 24HRU #### [facility] , #### COL T V, U24 NA, CREA24 #### [facility] [address] [place] [address] Hyaline Casts,Urine 0-8 Normal 0-8 [facility] Comment on above: Order Comment: URINE VOLUME (MILLILTERS): [id number] Result Comment: PERF ORMED BY: [place] [address] PATHOLOGIST [employer] OLMAN ALBARRAN M.D. Performed By: #### O XAL 24HRU, U24 CA, MAG 24HRU, CITRIC UR, PHOS 24HRU, URIC 24HRU #### [facility] , #### COL T V, U24 NA, CREA24 #### [facility] [address] [place] [address] Ketones Ql (U) Trace High Negative [facility] Comment on above: Order Comment: URINE VOLUME (MILLILTERS): [id number] Performed By: #### O XAL 24HRU, U24 CA, MAG 24HRU, CITRIC UR, PHOS 24HRU, URIC 24HRU #### [facility] , #### COL T V, U24 NA, CREA24 #### [facility] [address] [place] [address] Leukocyte esterase Test strip Ql (U) Negative Normal Negative [facility] Comment on above: Order Comment: URINE VOLUME (MILLILTERS): [id number] Performed By: #### O XAL 24HRU, U24 CA, MAG 24HRU, CITRIC UR, PHOS 24HRU, URIC 24HRU #### [facility] , #### COL T V, U24 NA, CREA24 #### [facility] [address] [place] [address] Nitrite,Urine Negative Normal Negative [facility] Comment on above: Order Comment: URINE VOLUME (MILLILTERS): [id number] Performed By: #### O XAL 24HRU, U24 CA, MAG 24HRU, CITRIC UR, PHOS 24HRU, URIC 24HRU #### [facility] , #### COL T V, U24 NA, CREA24 #### [facility] [address] [place] [address] Occult Blood,Urine Negative Normal Negative [facility] Comment on above: Order Comment: URINE VOLUME (MILLILTERS): [id number] Result Comment: PERF ORMED BY: [place] [address] PATHOLOGIST [employer] OLMAN ALBARRAN M.D. Performed By: #### O XAL 24HRU, U24 CA, MAG 24HRU, CITRIC UR, PHOS 24HRU, URIC 24HRU #### [facility] , #### COL T V, U24 NA, CREA24 #### [facility] [address] [place] [address] pH (U) 5.0 [pH] Normal 5.0-9.0 [facility] Comment on above: Order Comment: URINE VOLUME (MILLILTERS): [id number] Performed By: #### O XAL 24HRU, U24 CA, MAG 24HRU, CITRIC UR, PHOS 24HRU, URIC 24HRU #### [facility] , #### COL T V, U24 NA, CREA24 #### [facility] [address] [place] [address] Protein,Urine Negative Normal Negative [facility] Comment on above: Order Comment: URINE VOLUME (MILLILTERS): [id number] Performed By: #### O XAL 24HRU, U24 CA, MAG 24HRU, CITRIC UR, PHOS 24HRU, URIC 24HRU #### [facility] , #### COL T V, U24 NA, CREA24 #### [facility] [address] [place] [address] RBC,Urine 1-2 Normal 0-4 [facility] Comment on above: Order Comment: URINE VOLUME (MILLILTERS): [id number] Performed By: #### O XAL 24HRU, U24 CA, MAG 24HRU, CITRIC UR, PHOS 24HRU, URIC 24HRU #### [facility] , #### COL T V, U24 NA, CREA24 #### [facility] [address] [place] [address] Specificy Monette,Urine 1.028 Normal 1.001-1.03 0 [facility] Comment on above: Order Comment: URINE VOLUME (MILLILTERS): [id number] Performed By: #### O XAL 24HRU, U24 CA, MAG 24HRU, CITRIC UR, PHOS 24HRU, URIC 24HRU #### [facility] , #### COL T V, U24 NA, CREA24 #### [facility] [address] [place] [address] Squamous Epithelial Cell,Urine 0-1 Normal 0-2 [facility] Comment on above: Order Comment: URINE VOLUME (MILLILTERS): [id number] Performed By: #### O XAL 24HRU, U24 CA, MAG 24HRU, CITRIC UR, PHOS 24HRU, URIC 24HRU #### [facility] , #### COL T V, U24 NA, CREA24 #### [facility] [address] [place] [address] Urobilinogen,Urine Normal Normal Normal [facility] Comment on above: Order Comment: URINE VOLUME (MILLILTERS): [id number] Performed By: #### O XAL 24HRU, U24 CA, MAG 24HRU, CITRIC UR, PHOS 24HRU, URIC 24HRU #### [facility] , #### COL T V, U24 NA, CREA24 #### [facility] [address] [place] [address] WBC,Urine 3-4 Normal 0-4 [facility] Comment on above: Order Comment: URINE VOLUME (MILLILTERS): [id number] Performed By: #### O XAL 24HRU, U24 CA, MAG 24HRU, CITRIC UR, PHOS 24HRU, URIC 24HRU #### [facility] , #### COL T V, U24 NA, CREA24 #### [facility] [address] [place] [address] Eosinophils Auto (Bld) [#/Vo l]Ordered By: Romel Orta on 05-07-2023 Eosinophils (Bld) [#/Vol] 0.1 10*3/uL 0.0-0.45 [facility] Eosinophils/100 WBC Auto (Bl d)Ordered By: Romel Orta on 05-07-2023 Eosinophils/100 WBC (Bld) 1.1 % . [facility] Erythrocyte distribution wid th Auto (RBC) [Ratio]Ordered By: Romel Orta on 05-07-2023 Erythrocyte distribution width (RBC) [Ratio] 14.3 % 12.0-14.8 [facility] Glucose [Mass/volume] in Ser um or PlasmaOrdered By: Romel Orta on 05-07-2023 Glucose [Mass/Vol] 98 mg/dL 70-100 [facility] Comment on above: ADA recommended refe rence rangeRandom Glucose Reference Range is dependent on time and content of last meal. Glucose of more than 200 mg/dL in a nonstressed, ambulatory subject supports the diagnosis of Diabetes Mellitus. Hematocrit Auto (Bld) [Volum e fraction]Ordered By: Romel Orta on 05-07-2023 Hematocrit (Bld) [Volume fraction] 38.9 % 38.8-50.0 [facility] Hemoglobin [Mass/volume] in BloodOrdered By: Romel Orta on 05-07-2023 Hemoglobin (Bld) [Mass/Vol] 13.7 g/dL 13.0-17.0 [facility] Ketones Auto test strip (U) [Mass/Vol]Ordered By: Romel Orta on 05-07-2023 Ketones (U) [Mass/Vol] Trace Negative [facility] Laboratory - UrinalysisOrder ed By: Romel Orta on 05-07-2023 Hyaline casts LM Ql (Urine sed) 0-8 [LPF] 0-8 [facility] Leukocytes [#/volume] correc nat for nucleated erythrocytes in Blood by Automated counOrdered By: Romel Orta on 05-07-2023 WBC corrected for nucl RBC Auto (Bld) [#/Vol] 9.9 10*3/uL 4.1-10.5 [facility] Lymphocytes Auto (Bld) [#/Vo l]Ordered By: Romel Orta on 05-07-2023 Lymphocytes (Bld) [#/Vol] 0.6 10*3/uL 1.00-4.8 [facility] Lymphocytes/100 WBC Auto (Bl d)Ordered By: Romel Orta on 05-07-2023 Lymphocytes/100 WBC (Bld) 6.2 % . [facility] MCH Auto (RBC) [Entitic mass ]Ordered By: Romel Orta on 05-07-2023 MCH (RBC) [Entitic mass] 31.3 pg 27.5-35.2 [facility] MCHC Auto (RBC) [Mass/Vol]Or dered By: Romel Orta on 05-07-2023 MCHC (RBC) [Mass/Vol] 35.2 g/dL 32.5-35.6 [facility] MCV Auto (RBC) [Entitic vol] Ordered By: Romel Orta on 05-07-2023 MCV (RBC) [Entitic vol] 88.9 fL 83.5-101 [facility] Monocyte distribution width [Entitic volume] in Blood by AutomatedOrdered By: Romel Orta on 05-07-2023 Monocyte distribution width Auto (Bld) [Entitic vol] 22.82 % 0.00-20.00 [facility] Comment on above: For adults in ED, MD W > 20.0 may be associated with a higher risk of sepsis during the first 12 hrs of hospital admission Monocytes Auto (Bld) [#/Vol] Ordered By: Romel Orta on 05-07-2023 Monocytes (Bld) [#/Vol] 1.5 10*3/uL 0.0-0.8 [facility] Monocytes/100 WBC Auto (Bld) Ordered By: Romel Orta on 05-07-2023 Monocytes/100 WBC (Bld) 15.4 % . [facility] Neutrophils Auto (Bld) [#/Vo l]Ordered By: Romel Orta on 05-07-2023 Neutrophils (Bld) [#/Vol] 7.6 10*3/uL 1.8-7.7 [facility] Neutrophils/100 WBC Auto (Bl d)Ordered By: Romel Orta on 05-07-2023 Neutrophils/100 WBC (Bld) 76.7 % . [facility] Nitrite Test strip Ql (U)Ord ered By: Romel Orta on 05-07-2023 Nitrite Ql (U) Negative Negative [facility] No Panel InformationOrdered By: Romel Orta on 05-07-2023 Estimated GFR (CKD-EPI) 37.476 mL/Min [facility] Creatinine Clearance (Chem 41.86 [facility] Nucleated erythrocytes [Pres ence] in Blood by Automated countOrdered By: Romel Orta on 05-07-2023 Nucleated RBC Auto Ql (Bld) 0.1 /100{WBC} 0-0.5 [facility] Platelet mean volume Auto (B ld) [Entitic vol]Ordered By: Romel Orta on 05-07-2023 Platelet mean volume (Bld) [Entitic vol] 8.3 fL 6.6-10.1 [facility] Platelets Auto (Bld) [#/Vol] Ordered By: Romel Orta on 05-07-2023 Platelets (Bld) [#/Vol] 193 10*3/uL 150-450 [facility] Potassium [Moles/volume] in Serum or PlasmaOrdered By: Romel Orta on 05-07-2023 Potassium [Moles/Vol] 4.2 mmol/L 3.5-5.1 [facility] Protein Auto test strip (U) [Mass/Vol]Ordered By: Romel Orta on 05-07-2023 Protein (U) [Mass/Vol] Negative Negative [facility] RBC Auto (Bld) [#/Vol]Ordere d By: Romel Orta on 05-07-2023 RBC (Bld) [#/Vol] 4.38 10*6/uL 3.90-5.60 [facility] Serum or plasma anion gap de terminationOrdered By: Romel Orta on 05-07-2023 Anion gap [Moles/Vol] 15.4 mmol/L 6.0-15.0 [facility] Sodium [Moles/volume] in Ser um or PlasmaOrdered By: Romel Orta on 05-07-2023 Sodium [Moles/Vol] 137 mmol/L 136-145 [facility] Specific gravity Auto test s trip (U) [Rel density]Ordered By: Romel Orta on 05-07-2023 Specific gravity (U) [Rel density] 1.028 1.001-1.03 0 [facility] Squamous epithelial cells de tection in urine sediment by light microscopyOrdered By: Romel Orta on 05-07-2023 Epithelial cells.squamous LM Ql (Urine sed) 0-1 [HPF] 0-2 [facility] Urea nitrogen [Mass/volume] in Serum or PlasmaOrdered By: Romel Orta on 05-07-2023 Urea nitrogen [Mass/Vol] 34 mg/dL 7-25 [facility] Urine bacteria detection by automated methodOrdered By: Romel Orta on 05-07-2023 Bacteria Auto Ql (U) None seen None Seen [facility] Urine clarity by refractomet ry automatedOrdered By: Romel Orta on 05-07-2023 Clarity Refractometry automated (U) Cloudy Clear [facility] Urine glucose measurement by automated test strip (mass/volume)Ordered By: Romel Orta on 05-07-2023 Glucose Auto test strip (U) [Mass/Vol] Normal mg/dL Normal [facility] Urine hemoglobin detection b y automated test stripOrdered By: Romel Orta on 05-07-2023 Hemoglobin Auto test strip Ql (U) Negative Negative [facility] Urine leukocyte esterase det ection by automated test stripOrdered By: Romel Orta on 05-07-2023 Leukocyte esterase Auto test strip Ql (U) Negative Negative [facility] Urine sediment crystal ident ification by light microscopyOrdered By: Romel Orta on 05-07-2023 Crystals LM Nom (Urine sed) N/A [facility] Urobilinogen Auto test strip (U) [Mass/Vol]Ordered By: Romel Orta on 05-07-2023 Urobilinogen (U) [Mass/Vol] Normal mg/dL Normal [facility] WBC Auto (Bld) [#/Vol]Ordere d By: Romel Orta on 05-07-2023 WBC (Bld) [#/Vol] 9.9 10*3/uL 4.1-10.5 [facility] pH Auto test strip (U)Ordere d By: Romel Orta on 05-07-2023 pH (U) 5.0 [pH] 5.0-9.0 [facility] Alanine aminotransferase [En zymatic activity/volume] in Serum or PlasmaOrdered By: Edenilson Reinoso on 05-03-2023 ALT [Catalytic activity/Vol] 44 U/L 7-52 [facility] Albumin [Mass/volume] in Ser um or Plasma by Bromocresol green (BCG) dye binding methoOrdered By: Edenilson Reinoso on 05-03-2023 Albumin BCG dye [Mass/Vol] 4.4 g/dL 3.5-5.7 [facility] Alkaline phosphatase [Enzyma tic activity/volume] in Serum or PlasmaOrdered By: Edenilson Reinoso on 05-03-2023 ALP [Catalytic activity/Vol] 79 U/L 34-104 [facility] Aspartate aminotransferase [ Enzymatic activity/volume] in Serum or PlasmaOrdered By: Edenilson Reinoso on 05-03-2023 AST [Catalytic activity/Vol] 28 U/L 13-39 [facility] Automated erythrocytes count in urine sediment (number/area)Ordered By: Edenilson Reinoso on 05-03-2023 RBC Auto (Urine sed) [#/Area] 10-19 [HPF] 0-4 [facility] Automated leukocytes count i n urine sediment (number/area)Ordered By: Edenilson Reinoso on 05-03-2023 WBC Auto (Urine sed) [#/Area] 0-1 [HPF] 0-4 [facility] Basic Metabolic Panelon 04-21 Anion gap [Moles/Vol] 13.8 mmol/L Normal 6.0-15.0 [facility] Comment on above: Performed By: #### O XAL 24HRU, U24 CA, MAG 24HRU, CITRIC UR, PHOS 24HRU, URIC 24HRU #### [facility] , #### COL T V, U24 NA, CREA24 #### [facility] [address] Calcium [Mass/Vol] 9.2 mg/dL Normal 8.6-10.3 [facility] Comment on above: Performed By: #### O XAL 24HRU, U24 CA, MAG 24HRU, CITRIC UR, PHOS 24HRU, URIC 24HRU #### [facility] , #### COL T V, U24 NA, CREA24 #### [facility] [address] [place] [address] Chloride [Moles/Vol] 105 mmol/L Normal 98-107 [facility] Comment on above: Performed By: #### O XAL 24HRU, U24 CA, MAG 24HRU, CITRIC UR, PHOS 24HRU, URIC 24HRU #### [facility] , #### COL T V, U24 NA, CREA24 #### [address] CO2 [Moles/Vol] 21.3 mmol/L Normal 21.0-31.0 [facility] Comment on above: Performed By: #### O XAL 24HRU, U24 CA, MAG 24HRU, CITRIC UR, PHOS 24HRU, URIC 24HRU #### [facility] , #### COL T V, U24 NA, CREA24 #### [address] Creatinine [Mass/Vol] 1.51 mg/dL High 0.70-1.30 [facility] Comment on above: Performed By: #### O XAL 24HRU, U24 CA, MAG 24HRU, CITRIC UR, PHOS 24HRU, URIC 24HRU #### [facility] , #### COL T V, U24 NA, CREA24 #### [address] Creatinine Clr Calc Pharmacy 54.49 [facility] Comment on above: Performed By: #### O XAL 24HRU, U24 CA, MAG 24HRU, CITRIC UR, PHOS 24HRU, URIC 24HRU #### [facility] , #### COL T V, U24 NA, CREA24 #### [facility] [address] [place] [address] GFR/1.73 sq M.predicted MDRD (S/P/Bld) [Vol rate/Area] 50.623 mL/min/{1.73_m2} [facility] Comment on above: Performed By: #### O XAL 24HRU, U24 CA, MAG 24HRU, CITRIC UR, PHOS 24HRU, URIC 24HRU #### [facility] , #### COL T V, U24 NA, CREA24 #### [address] Glucose [Mass/Vol] 107 mg/dL High 70-100 [facility] Comment on above: Result Comment: [facility] Glucose Reference Range is dependent on time and content of last meal. Glucose of more than 200 mg/dL in a nonstressed, ambulatory subject supports the diagnosis of Diabetes Mellitus. ADA recommended reference range Performed By: #### O XAL 24HRU, U24 CA, MAG 24HRU, CITRIC UR, PHOS 24HRU, URIC 24HRU #### [facility] , #### COL T V, U24 NA, CREA24 #### [address] Potassium [Moles/Vol] 4.1 mmol/L Normal 3.5-5.1 [facility] Comment on above: Performed By: #### O XAL 24HRU, U24 CA, MAG 24HRU, CITRIC UR, PHOS 24HRU, URIC 24HRU #### [facility] , #### COL T V, U24 NA, CREA24 #### [place] [address] [place] Sodium [Moles/Vol] 136 mmol/L Normal 136-145 [facility] Comment on above: Performed By: #### O XAL 24HRU, U24 CA, MAG 24HRU, CITRIC UR, PHOS 24HRU, URIC 24HRU #### [facility] , #### COL T V, U24 NA, CREA24 #### [facility] [address] [place] [address] Urea nitrogen [Mass/Vol] 22 mg/dL Normal 7-25 [facility] Comment on above: Performed By: #### O XAL 24HRU, U24 CA, MAG 24HRU, CITRIC UR, PHOS 24HRU, URIC 24HRU #### [facility] , #### COL T V, U24 NA, CREA24 #### [address] Basophils Auto (Bld) [#/Vol] Ordered By: Edenilson Reinoso on 05-03-2023 Basophils (Bld) [#/Vol] 0.0 10*3/uL 0.0-0.2 [facility] Basophils/100 WBC Auto (Bld) Ordered By: Edenilson Reinoso on 05-03-2023 Basophils/100 WBC (Bld) 0.3 % . [facility] Bilirubin Test strip Ql (U)O rdered By: Edenilson Reinoso on 05-03-2023 Bilirubin Ql (U) Negative Negative [facility] Bilirubin.direct [Mass/volum e] in Serum or PlasmaOrdered By: Edenilson Reinoso on 05-03-2023 Bilirubin.direct [Mass/Vol] 0.20 mg/dL 0.03-0.18 [facility] Bilirubin.total [Mass/volume ] in Serum or PlasmaOrdered By: Edenilson Reinoso on 05-03-2023 Bilirubin [Mass/Vol] 1.0 mg/dL 0.3-1.[address] [facility] [address] abdomen pelvis wo conon 0 05-03-2023 CT abdomen pelvis wo [place] [address] CT Scan Report Signed Patient: Valentin Torre MR#: [id number] [birth year] : 1955 Acct:[id number] Age/Sex: 68 / M ADM Date: 05/03/23 Loc: ER Room: Type: [facility] ER Attending Dr: Copies to: Edenilson Reinoso Jr, MD Ordering Provider: Edenilson Reinoso Jr, MD Date of Service: 05/03/23 CT/CT abdomen pelvis wo con: L flank pain CT ABDOMEN AND PELVIS WITHOUT CONTRAST CLINICAL DATA: Left-sided flank and abdominal pain. History kidney stones. COMPARISON: 04/29/2018 and MRI abdomen 05/19/2018 Spiral images were obtained through the abdomen and pelvis without contrast. This CT exam was performed using one or more following dose reduction techniques: Automated exposure control, adjustment of the mA and/or kV according to patient size, or use of iterative reconstruction technique. Limited cuts through the lung bases show minor atelectasis and/or scarring. There is a small hiatal hernia. Assessment of the intra-abdominal organs is slightly limited by the absence of contrast. No calcified gallstones are identified. No intrahepatic masses are seen. The spleen, pancreas and adrenal glands show no acute findings. There is bilateral perinephric fibrofatty stranding. There are multiple small bilateral renal stones. There are left renal hypodensities which are not fully evaluated though are probably cysts given the appearance on the priors. There is mild left hydronephrosis and hydroureter with periureteral stranding . There is a stone within a couple centimeters of the ureterovesical junction measuring 3 mm in size. The abdominal aorta is normal caliber and there is mild atherosclerotic plaque. There are retroperitoneal and tiny mesenteric lymph nodes. No ascites is visualized. No dilated small bowel loops are seen. There is air and stool at the ascending and transverse colon. The descending colon is underdistended. Postoperative and degenerative changes are seen at the spine. Images through the pelvis show no appendiceal inflammation. There are no dilated small bowel loops. There is minimal distal colonic stool. There are sigmoid diverticula, without associated active inflammation. The urinary bladder is not well distended for assessment. The prostate is mildly prominent. There are patulous inguinal rings containing fat, larger on the right. There are small benign inguinal lymph nodes with fatty paulino. No ascites is seen. There are minor degenerative changes at the hips. CT/CT abdomen pelvis wo con IMPRESSION: SMALL HIATAL HERNIA. LEFT RENAL CYSTS. BILATERAL NEPHROLITHIASIS. PARTIALLY OBSTRUCTING DISTAL LEFT URETERAL STONE. MILD DIVERTICULOSIS. Impression dictated by: Christine Alexandra M.D.05/03/2023 9:10 AM Dictation Location: [place] [address] Transcribed By: [facility] 05/03/23 0910 Dictated By: Christine Alexandra MD 05/03/23 0859 Signed By: 05/03/23 09 [facility] Calcium [Mass/volume] in Ser um or PlasmaOrdered By: Edenilson Reinoso on 05-03-2023 Calcium [Mass/Vol] 9.2 mg/dL 8.6-10.3 [facility] Carbon dioxide, total [Moles /volume] in Serum or PlasmaOrdered By: Edenilson Reinoso on 05-03-2023 CO2 [Moles/Vol] 21.3 mmol/L 21.0-31.0 [facility] Chloride [Moles/volume] in S ace or PlasmaOrdered By: Edenilson Reinoso on 05-03-2023 Chloride [Moles/Vol] 105 mmol/L 98-107 [facility] Color Auto (U)Ordered By: Chen Reinoso on 05-03-2023 Color (U) Yellow Yellow [facility] Complete Blood Count Auto Di ffon 05-03-2023 Basophils (Bld) [#/Vol] 0.0 10*3/uL Normal 0.0-0.2 [facility] Comment on above: Result Comment: PERF ORMED BY: [place] [address] PATHOLOGIST [employer] OLMAN ALBARRAN M.D. Performed By: #### O XAL 24HRU, U24 CA, MAG 24HRU, CITRIC UR, PHOS 24HRU, URIC 24HRU #### [facility] , #### COL T V, U24 NA, CREA24 #### [facility] [address] [place] [address] Basophils/100 WBC (Bld) 0.3 % Normal . [facility] Comment on above: Performed By: #### O XAL 24HRU, U24 CA, MAG 24HRU, CITRIC UR, PHOS 24HRU, URIC 24HRU #### [facility] , #### COL T V, U24 NA, CREA24 #### [facility] [address] [place] [address] Eosinophils (Bld) [#/Vol] 0.0 10*3/uL Normal 0.0-0.45 [facility] Comment on above: Performed By: #### O XAL 24HRU, U24 CA, MAG 24HRU, CITRIC UR, PHOS 24HRU, URIC 24HRU #### [facility] , #### COL T V, U24 NA, CREA24 #### [address] Eosinophils/100 WBC (Bld) 0.3 % Normal . [facility] Comment on above: Performed By: #### O XAL 24HRU, U24 CA, MAG 24HRU, CITRIC UR, PHOS 24HRU, URIC 24HRU #### [facility] , #### COL T V, U24 NA, CREA24 #### [address] Erythrocyte distribution width (RBC) [Ratio] 14.9 % High 12.0-14.8 [facility] Comment on above: Performed By: #### O XAL 24HRU, U24 CA, MAG 24HRU, CITRIC UR, PHOS 24HRU, URIC 24HRU #### [facility] , #### COL T V, U24 NA, CREA24 #### [address] Hematocrit (Bld) [Volume fraction] 44.5 % Normal 38.8-50.0 [facility] Comment on above: Performed By: #### O XAL 24HRU, U24 CA, MAG 24HRU, CITRIC UR, PHOS 24HRU, URIC 24HRU #### [facility] , #### COL T V, U24 NA, CREA24 #### [address] Hemoglobin (Bld) [Mass/Vol] 15.7 g/dL Normal 13.0-17.0 [facility] Comment on above: Performed By: #### O XAL 24HRU, U24 CA, MAG 24HRU, CITRIC UR, PHOS 24HRU, URIC 24HRU #### [facility] , #### COL T V, U24 NA, CREA24 #### [address] Lymphocytes (Bld) [#/Vol] 0.6 10*3/uL Low 1.00-4.8 [facility] Comment on above: Performed By: #### O XAL 24HRU, U24 CA, MAG 24HRU, CITRIC UR, PHOS 24HRU, URIC 24HRU #### [facility] , #### COL T V, U24 NA, CREA24 #### [address] Lymphocytes/100 WBC (Bld) 4.3 % Normal . [facility] Comment on above: Performed By: #### O XAL 24HRU, U24 CA, MAG 24HRU, CITRIC UR, PHOS 24HRU, URIC 24HRU #### [facility] , #### COL T V, U24 NA, CREA24 #### [address] MCH (RBC) [Entitic mass] 31.1 pg Normal 27.5-35.2 [facility] Comment on above: Performed By: #### O XAL 24HRU, U24 CA, MAG 24HRU, CITRIC UR, PHOS 24HRU, URIC 24HRU #### [facility] , #### COL T V, U24 NA, CREA24 #### [address] MCV (RBC) [Entitic vol] 87.9 fL Normal 83.5-101 [facility] Comment on above: Performed By: #### O XAL 24HRU, U24 CA, MAG 24HRU, CITRIC UR, PHOS 24HRU, URIC 24HRU #### [facility] , #### COL T V, U24 NA, CREA24 #### [address] Mean Corpuscular HGB Conc 35.4 g/dL Normal 32.5-35.6 [facility] Comment on above: Performed By: #### O XAL 24HRU, U24 CA, MAG 24HRU, CITRIC UR, PHOS 24HRU, URIC 24HRU #### [facility] , #### COL T V, U24 NA, CREA24 #### [facility] [address] [place] [address] [place] Monocytes (Bld) [#/Vol] 1.5 10*3/uL High 0.0-0.8 [facility] Comment on above: Performed By: #### O XAL 24HRU, U24 CA, MAG 24HRU, CITRIC UR, PHOS 24HRU, URIC 24HRU #### [facility] , #### COL T V, U24 NA, CREA24 #### [address] Monocytes/100 WBC (Bld) 24.56 % High 0.00-20.00 [facility] Comment on above: Result Comment: For adults in ED, MDW > 20.0 may be associated with a higher risk of sepsis during the first 12 hrs of hospital admission Performed By: #### O XAL 24HRU, U24 CA, MAG 24HRU, CITRIC UR, PHOS 24HRU, URIC 24HRU #### [facility] , #### COL T V, U24 NA, CREA24 #### [place] [address] [place] Monocytes/100 WBC (Bld) 11.0 % Normal . [facility] Comment on above: Performed By: #### O XAL 24HRU, U24 CA, MAG 24HRU, CITRIC UR, PHOS 24HRU, URIC 24HRU #### [facility] , #### COL T V, U24 NA, CREA24 #### [facility] [address] [place] [address] [place] Neutrophils (Bld) [#/Vol] 11.3 10*3/uL High 1.8-7.7 [facility] Comment on above: Performed By: #### O XAL 24HRU, U24 CA, MAG 24HRU, CITRIC UR, PHOS 24HRU, URIC 24HRU #### [facility] , #### COL T V, U24 NA, CREA24 #### [address] Neutrophils/100 WBC (Bld) 84.1 % Normal . [facility] Comment on above: Performed By: #### O XAL 24HRU, U24 CA, MAG 24HRU, CITRIC UR, PHOS 24HRU, URIC 24HRU #### [facility] , #### COL T V, U24 NA, CREA24 #### [address] NRBC% 0.1 /100{WBC} Normal 0-0.5 [facility] Comment on above: Performed By: #### O XAL 24HRU, U24 CA, MAG 24HRU, CITRIC UR, PHOS 24HRU, URIC 24HRU #### [facility] , #### COL T V, U24 NA, CREA24 #### [address] Platelet mean volume (Bld) [Entitic vol] 8.4 fL Normal 6.6-10.1 [facility] Comment on above: Performed By: #### O XAL 24HRU, U24 CA, MAG 24HRU, CITRIC UR, PHOS 24HRU, URIC 24HRU #### [facility] , #### COL T V, U24 NA, CREA24 #### [address] Platelets (Bld) [#/Vol] 185 10*3/uL Normal 150-450 [facility] Comment on above: Performed By: #### O XAL 24HRU, U24 CA, MAG 24HRU, CITRIC UR, PHOS 24HRU, URIC 24HRU #### [facility] , #### COL T V, U24 NA, CREA24 #### [address] RBC (Bld) [#/Vol] 5.06 10*6/uL Normal 3.90-5.60 [facility] Comment on above: Performed By: #### O XAL 24HRU, U24 CA, MAG 24HRU, CITRIC UR, PHOS 24HRU, URIC 24HRU #### [facility] , #### COL T V, U24 NA, CREA24 #### [facility] [address] [place] [address] WBC (Bld) [#/Vol] 13.4 10*3/uL High 4.1-10.5 [facility] Comment on above: Performed By: #### O XAL 24HRU, U24 CA, MAG 24HRU, CITRIC UR, PHOS 24HRU, URIC 24HRU #### [facility] , #### COL T V, U24 NA, CREA24 #### [facility] [address] [place] [address] Creatinine [Mass/volume] in Serum or PlasmaOrdered By: Edenilson Reinoso on 05-03-2023 Creatinine [Mass/Vol] 1.51 mg/dL 0.70-1.30 [facility] Dipstick and Microscopicon 0 05-03-2023 Appearance (U) Clear Normal Clear [facility] Comment on above: Order Comment: URINE COLLECTION TIME (HRS): 24 URINE VOLUME (MILLILTERS): 2960 Performed By: #### O XAL 24HRU, U24 CA, MAG 24HRU, CITRIC UR, PHOS 24HRU, URIC 24HRU #### [facility] , #### COL T V, U24 NA, CREA24 #### [facility] [address] [place] [address] [place] Bacteria,Urine None Seen Normal None Seen [facility] Comment on above: Order Comment: URINE COLLECTION TIME (HRS): 24 URINE VOLUME (MILLILTERS): 2960 Performed By: #### O XAL 24HRU, U24 CA, MAG 24HRU, CITRIC UR, PHOS 24HRU, URIC 24HRU #### [facility] , #### COL T V, U24 NA, CREA24 #### [facility] [address] [place] [address] [place] Bilirubin,Urine Negative Normal Negative [facility] Comment on above: Order Comment: URINE COLLECTION TIME (HRS): 24 URINE VOLUME (MILLILTERS): 2960 Performed By: #### O XAL 24HRU, U24 CA, MAG 24HRU, CITRIC UR, PHOS 24HRU, URIC 24HRU #### [facility] , #### COL T V, U24 NA, CREA24 #### [facility] [address] Color (U) Yellow Normal Yellow [facility] Comment on above: Order Comment: URINE COLLECTION TIME (HRS): 24 URINE VOLUME (MILLILTERS): 2960 Performed By: #### O XAL 24HRU, U24 CA, MAG 24HRU, CITRIC UR, PHOS 24HRU, URIC 24HRU #### [facility] , #### COL T V, U24 NA, CREA24 #### [facility] [address] [place] [address] Glucose Ql (U) Normal Normal Normal [facility] Comment on above: Order Comment: URINE COLLECTION TIME (HRS): 24 URINE VOLUME (MILLILTERS): 2960 Performed By: #### O XAL 24HRU, U24 CA, MAG 24HRU, CITRIC UR, PHOS 24HRU, URIC 24HRU #### [facility] , #### COL T V, U24 NA, CREA24 #### [facility] [address] [place] [address] Hyaline Casts,Urine 0-8 Normal 0-8 [facility] Comment on above: Order Comment: URINE COLLECTION TIME (HRS): 24 URINE VOLUME (MILLILTERS): 2960 Result Comment: PERF ORMED BY: [place] [address] PATHOLOGIST [employer] OLMAN ALBARRAN M.D. Performed By: #### O XAL 24HRU, U24 CA, MAG 24HRU, CITRIC UR, PHOS 24HRU, URIC 24HRU #### [facility] , #### COL T V, U24 NA, CREA24 #### [facility] [address] Ketones Ql (U) Trace High Negative [facility] Comment on above: Order Comment: URINE COLLECTION TIME (HRS): 24 URINE VOLUME (MILLILTERS): 2960 Performed By: #### O XAL 24HRU, U24 CA, MAG 24HRU, CITRIC UR, PHOS 24HRU, URIC 24HRU #### [facility] , #### COL T V, U24 NA, CREA24 #### [facility] [address] [place] [address] Leukocyte esterase Test strip Ql (U) 1+ High Negative [facility] Comment on above: Order Comment: URINE COLLECTION TIME (HRS): 24 URINE VOLUME (MILLILTERS): 2960 Performed By: #### O XAL 24HRU, U24 CA, MAG 24HRU, CITRIC UR, PHOS 24HRU, URIC 24HRU #### [facility] , #### COL T V, U24 NA, CREA24 #### [facility] [address] [place] [address] Nitrite,Urine Negative Normal Negative [facility] Comment on above: Order Comment: URINE COLLECTION TIME (HRS): 24 URINE VOLUME (MILLILTERS): 2960 Performed By: #### O XAL 24HRU, U24 CA, MAG 24HRU, CITRIC UR, PHOS 24HRU, URIC 24HRU #### [facility] , #### COL T V, U24 NA, CREA24 #### [facility] [address] [place] [address] Occult Blood,Urine 1+ High Negative [facility] Comment on above: Order Comment: URINE COLLECTION TIME (HRS): 24 URINE VOLUME (MILLILTERS): 2960 Result Comment: PERF ORMED BY: [place] [address] PATHOLOGIST [employer] OLMAN ALBARRAN M.D. Performed By: #### O XAL 24HRU, U24 CA, MAG 24HRU, CITRIC UR, PHOS 24HRU, URIC 24HRU #### [facility] , #### COL T V, U24 NA, CREA24 #### [facility] [address] pH (U) 5.5 [pH] Normal 5.0-9.0 [facility] Comment on above: Order Comment: URINE COLLECTION TIME (HRS): 24 URINE VOLUME (MILLILTERS): 2960 Performed By: #### O XAL 24HRU, U24 CA, MAG 24HRU, CITRIC UR, PHOS 24HRU, URIC 24HRU #### [facility] , #### COL T V, U24 NA, CREA24 #### [place] [address] [place] Protein,Urine Trace High Negative [facility] Comment on above: Order Comment: URINE COLLECTION TIME (HRS): 24 URINE VOLUME (MILLILTERS): 2960 Performed By: #### O XAL 24HRU, U24 CA, MAG 24HRU, CITRIC UR, PHOS 24HRU, URIC 24HRU #### [facility] , #### COL T V, U24 NA, CREA24 #### [address] RBC,Urine 10-19 High 0-4 [facility] Comment on above: Order Comment: URINE COLLECTION TIME (HRS): 24 URINE VOLUME (MILLILTERS): 2960 Performed By: #### O XAL 24HRU, U24 CA, MAG 24HRU, CITRIC UR, PHOS 24HRU, URIC 24HRU #### [facility] , #### COL T V, U24 NA, CREA24 #### [facility] [address] [place] [address] Specificy Monette,Urine 1.024 Normal 1.001-1.03 0 [facility] Comment on above: Order Comment: URINE COLLECTION TIME (HRS): 24 URINE VOLUME (MILLILTERS): 2960 Performed By: #### O XAL 24HRU, U24 CA, MAG 24HRU, CITRIC UR, PHOS 24HRU, URIC 24HRU #### [facility] , #### COL T V, U24 NA, CREA24 #### [facility] [address] Squamous Epithelial Cell,Urine None Seen Normal 0-2 [facility] Comment on above: Order Comment: URINE COLLECTION TIME (HRS): 24 URINE VOLUME (MILLILTERS): 2960 Performed By: #### O XAL 24HRU, U24 CA, MAG 24HRU, CITRIC UR, PHOS 24HRU, URIC 24HRU #### [facility] , #### COL T V, U24 NA, CREA24 #### [facility] [address] Urobilinogen,Urine Normal Normal Normal [facility] Comment on above: Order Comment: URINE COLLECTION TIME (HRS): 24 URINE VOLUME (MILLILTERS): 2960 Performed By: #### O XAL 24HRU, U24 CA, MAG 24HRU, CITRIC UR, PHOS 24HRU, URIC 24HRU #### [facility] , #### COL T V, U24 NA, CREA24 #### [facility] [address] [place] [address] [place] WBC LM.HPF (Urine sed) [#/Area] 0 /[HPF] Normal 0-4 [facility] Comment on above: Order Comment: URINE COLLECTION TIME (HRS): 24 URINE VOLUME (MILLILTERS): 2960 Performed By: #### O XAL 24HRU, U24 CA, MAG 24HRU, CITRIC UR, PHOS 24HRU, URIC 24HRU #### [facility] , #### COL T V, U24 NA, CREA24 #### [facility] [address] Eosinophils Auto (Bld) [#/Vo l]Ordered By: Edenilson Reinoso on 05-03-2023 Eosinophils (Bld) [#/Vol] 0.0 10*3/uL 0.0-0.45 [facility] Eosinophils/100 WBC Auto (Bl d)Ordered By: Edenilson Reinoso on 05-03-2023 Eosinophils/100 WBC (Bld) 0.3 % . [facility] Erythrocyte distribution wid th Auto (RBC) [Ratio]Ordered By: Edenilson Reinoso on 05-03-2023 Erythrocyte distribution width (RBC) [Ratio] 14.9 % 12.0-14.8 [facility] Globulin Calc (S) [Mass/Vol] Ordered By: Edenilson Reinoso on 05-03-2023 Globulin (S) [Mass/Vol] 2.3 g/dL [facility] Glucose [Mass/volume] in Ser um or PlasmaOrdered By: Edenilson Reinoso on 05-03-2023 Glucose [Mass/Vol] 107 mg/dL 70-100 [facility] Comment on above: ADA recommended refe rence rangeRandom Glucose Reference Range is dependent on time and content of last meal. Glucose of more than 200 mg/dL in a nonstressed, ambulatory subject supports the diagnosis of Diabetes Mellitus. Hematocrit Auto (Bld) [Volum e fraction]Ordered By: Edenilson Reinoso on 05-03-2023 Hematocrit (Bld) [Volume fraction] 44.5 % 38.8-50.0 [facility] Hemoglobin [Mass/volume] in BloodOrdered By: Edenilson Reinoso on 05-03-2023 Hemoglobin (Bld) [Mass/Vol] 15.7 g/dL 13.0-17.0 [facility] Hepatic Panelon 05-03-2023 Albumin [Mass/Vol] 4.4 g/dL Normal 3.5-5.7 [facility] Comment on above: Performed By: #### O XAL 24HRU, U24 CA, MAG 24HRU, CITRIC UR, PHOS 24HRU, URIC 24HRU #### [facility] , #### COL T V, U24 NA, CREA24 #### [facility] [address] Albumin/Globulin [Mass ratio] 1.9 {ratio} Normal [facility] Comment on above: Performed By: #### O XAL 24HRU, U24 CA, MAG 24HRU, CITRIC UR, PHOS 24HRU, URIC 24HRU #### [facility] , #### COL T V, U24 NA, CREA24 #### [facility] [address] [place] [address] ALP [Catalytic activity/Vol] 79 U/L Normal 34-104 [facility] Comment on above: Performed By: #### O XAL 24HRU, U24 CA, MAG 24HRU, CITRIC UR, PHOS 24HRU, URIC 24HRU #### [facility] , #### COL T V, U24 NA, CREA24 #### [address] ALT [Catalytic activity/Vol] 44 U/L Normal 7-52 [facility] Comment on above: Performed By: #### O XAL 24HRU, U24 CA, MAG 24HRU, CITRIC UR, PHOS 24HRU, URIC 24HRU #### [facility] , #### COL T V, U24 NA, CREA24 #### [address] AST [Catalytic activity/Vol] 28 U/L Normal 13-39 [facility] Comment on above: Performed By: #### O XAL 24HRU, U24 CA, MAG 24HRU, CITRIC UR, PHOS 24HRU, URIC 24HRU #### [facility] , #### COL T V, U24 NA, CREA24 #### [address] Bilirubin [Mass/Vol] 1.0 mg/dL Normal 0.3-1.0 [facility] Comment on above: Performed By: #### O XAL 24HRU, U24 CA, MAG 24HRU, CITRIC UR, PHOS 24HRU, URIC 24HRU #### [facility] , #### COL T V, U24 NA, CREA24 #### [facility] [address] [place] [address] Bilirubin,Indirect 0.8 mg/dL Normal [facility] Comment on above: Performed By: #### O XAL 24HRU, U24 CA, MAG 24HRU, CITRIC UR, PHOS 24HRU, URIC 24HRU #### [facility] , #### COL T V, U24 NA, CREA24 #### [facility] [address] [place] [address] Bilirubin.indirect [Mass/Vol] 0.20 mg/dL High 0.03-0.18 [facility] Comment on above: Performed By: #### O XAL 24HRU, U24 CA, MAG 24HRU, CITRIC UR, PHOS 24HRU, URIC 24HRU #### [facility] , #### COL T V, U24 NA, CREA24 #### [facility] [address] [place] [address] Globulin (S) [Mass/Vol] 2.3 g/dL Normal [facility] Comment on above: Performed By: #### O XAL 24HRU, U24 CA, MAG 24HRU, CITRIC UR, PHOS 24HRU, URIC 24HRU #### [facility] , #### COL T V, U24 NA, CREA24 #### [address] Protein [Mass/Vol] 6.7 g/dL Normal 6.4-8.9 [facility] Comment on above: Performed By: #### O XAL 24HRU, U24 CA, MAG 24HRU, CITRIC UR, PHOS 24HRU, URIC 24HRU #### [facility] , #### COL T V, U24 NA, CREA24 #### [facility] [address] [place] [address] Ketones Auto test strip (U) [Mass/Vol]Ordered By: Edenilson Reinoso on 05-03-2023 Ketones (U) [Mass/Vol] Trace Negative [facility] - UrinalysisOrder ed By: Edenilson Reinoso on 05-03-2023 Hyaline casts LM Ql (Urine sed) 0-8 [LPF] 0-8 [facility] Leukocytes [#/volume] correc nat for nucleated erythrocytes in Blood by Automated counOrdered By: Edenilson Reinoso on 05-03-2023 WBC corrected for nucl RBC Auto (Bld) [#/Vol] 13.4 10*3/uL 4.1-10.5 [facility] Lipaseon 05-03-2023 Lipase [Catalytic activity/Vol] 28.0 U/L Normal 11.0-82.0 [facility] Comment on above: Result Comment: PERF ORMED BY: [place] [address] PATHOLOGIST [employer] OLMAN ALBARRAN M.D. Performed By: #### O XAL 24HRU, U24 CA, MAG 24HRU, CITRIC UR, PHOS 24HRU, URIC 24HRU #### [facility] , #### COL T V, U24 NA, CREA24 #### [address] Lipase [Enzymatic activity/v olume] in Serum or PlasmaOrdered By: Edenilson Reinoso on 05-03-2023 Lipase [Catalytic activity/Vol] 28.0 U/L 11.0-82.0 [facility] Lymphocytes Auto (Bld) [#/Vo l]Ordered By: Edenilson Reinoso on 05-03-2023 Lymphocytes (Bld) [#/Vol] 0.6 10*3/uL 1.00-4.8 [facility] Lymphocytes/100 WBC Auto (Bl d)Ordered By: Edenilson Reinoso on 05-03-2023 Lymphocytes/100 WBC (Bld) 4.3 % . [facility] MCH Auto (RBC) [Entitic mass ]Ordered By: Edenilson Reinoso on 05-03-2023 MCH (RBC) [Entitic mass] 31.1 pg 27.5-35.2 [facility] MCHC Auto (RBC) [Mass/Vol]Or dered By: Edenilson Reinoso on 05-03-2023 MCHC (RBC) [Mass/Vol] 35.4 g/dL 32.5-35.6 [facility] MCV Auto (RBC) [Entitic vol] Ordered By: Edenilson Reinoso on 05-03-2023 MCV (RBC) [Entitic vol] 87.9 fL 83.5-101 [facility] Monocyte distribution width [Entitic volume] in Blood by AutomatedOrdered By: Edenilson Reinoso on 05-03-2023 Monocyte distribution width Auto (Bld) [Entitic vol] 24.56 % 0.00-20.00 [facility] Comment on above: For adults in ED, MD W > 20.0 may be associated with a higher risk of sepsis during the first 12 hrs of hospital admission Monocytes Auto (Bld) [#/Vol] Ordered By: Edenilson Reinoso on 05-03-2023 Monocytes (Bld) [#/Vol] 1.5 10*3/uL 0.0-0.8 [facility] Monocytes/100 WBC Auto (Bld) Ordered By: Edenilson Reinoso on 05-03-2023 Monocytes/100 WBC (Bld) 11.0 % . [facility] Neutrophils Auto (Bld) [#/Vo l]Ordered By: Edenilson Reinoso on 05-03-2023 Neutrophils (Bld) [#/Vol] 11.3 10*3/uL 1.8-7.7 [facility] Neutrophils/100 WBC Auto (Bl d)Ordered By: Edenilson Reinoso on 05-03-2023 Neutrophils/100 WBC (Bld) 84.1 % . [facility] Nitrite Test strip Ql (U)Ord ered By: Edenilson Reinoso on 05-03-2023 Nitrite Ql (U) Negative Negative [facility] No Panel InformationOrdered By: Edenilson Reinoso on 05-03-2023 Estimated GFR (CKD-EPI) 50.623 mL/Min [facility] Creatinine Clearance (Chem 54.49 [facility] Nucleated erythrocytes [Pres ence] in Blood by Automated countOrdered By: Edenilson Reinoso on 05-03-2023 Nucleated RBC Auto Ql (Bld) 0.1 /100{WBC} 0-0.5 [facility] Platelet mean volume Auto (B ld) [Entitic vol]Ordered By: Edenilson Reinoso on 05-03-2023 Platelet mean volume (Bld) [Entitic vol] 8.4 fL 6.6-10.1 [facility] Platelets Auto (Bld) [#/Vol] Ordered By: Edenilson Reinoso on 05-03-2023 Platelets (Bld) [#/Vol] 185 10*3/uL 150-450 [facility] Potassium [Moles/volume] in Serum or PlasmaOrdered By: Edenilson Reinoso on 05-03-2023 Potassium [Moles/Vol] 4.1 mmol/L 3.5-5.1 [facility] Protein Auto test strip (U) [Mass/Vol]Ordered By: Edenilson Reinoso on 05-03-2023 Protein (U) [Mass/Vol] Trace mg/dL Negative [facility] Protein [Mass/volume] in Ser um or PlasmaOrdered By: Edenilson Reinoso on 05-03-2023 Protein [Mass/Vol] 6.7 g/dL 6.4-8.9 [facility] RBC Auto (Bld) [#/Vol]Ordere d By: Edenilson Reinoso on 05-03-2023 RBC (Bld) [#/Vol] 5.06 10*6/uL 3.90-5.60 [facility] Serum or plasma albumin/glob ulin mass ratioOrdered By: Edenilson Reinoso on 05-03-2023 Albumin/Globulin [Mass ratio] 1.9 {ratio} [facility] Serum or plasma anion gap de terminationOrdered By: Edenilson Reinoso on 05-03-2023 Anion gap [Moles/Vol] 13.8 mmol/L 6.0-15.0 [facility] Serum or plasma non-glucuron idated bilirubin measurement (mass/volume)Ordered By: Edenilson Reinoso on 05-03-2023 Bilirubin.indirect [Mass/Vol] 0.8 mg/dL [facility] Sodium [Moles/volume] in Ser um or PlasmaOrdered By: Edenilson Reinoso on 05-03-2023 Sodium [Moles/Vol] 136 mmol/L 136-145 [facility] Specific gravity Auto test s trip (U) [Rel density]Ordered By: Edenilson Reinoso on 05-03-2023 Specific gravity (U) [Rel density] 1.024 1.001-1.03 0 [facility] Squamous epithelial cells de tection in urine sediment by light microscopyOrdered By: Edenilson Reinoso on 05-03-2023 Epithelial cells.squamous LM Ql (Urine sed) None seen [HPF] 0-2 [facility] Urea nitrogen [Mass/volume] in Serum or PlasmaOrdered By: Edenilson Reinoso on 05-03-2023 Urea nitrogen [Mass/Vol] 22 mg/dL 7-25 [facility] Urine bacteria detection by automated methodOrdered By: Edenilson Reinoso on 05-03-2023 Bacteria Auto Ql (U) None seen None Seen [facility] Urine clarity by refractomet ry automatedOrdered By: Edenilson Reinoso on 05-03-2023 Clarity Refractometry automated (U) Clear Clear [facility] Urine glucose measurement by automated test strip (mass/volume)Ordered By: Edenilson Reinoso on 05-03-2023 Glucose Auto test strip (U) [Mass/Vol] Normal mg/dL Normal [facility] Urine hemoglobin detection b y automated test stripOrdered By: Edenilson Reinoso on 05-03-2023 Hemoglobin Auto test strip Ql (U) 1+ Negative [facility] Urine leukocyte esterase det ection by automated test stripOrdered By: Edenilson Reinoso on 05-03-2023 Leukocyte esterase Auto test strip Ql (U) 1+ Negative [facility] Urobilinogen Auto test strip (U) [Mass/Vol]Ordered By: Edenilson Reinoso on 05-03-2023 Urobilinogen (U) [Mass/Vol] Normal mg/dL Normal [facility] WBC Auto (Bld) [#/Vol]Ordere d By: Edenilson Reinoso on 05-03-2023 WBC (Bld) [#/Vol] 13.4 10*3/uL 4.1-10.5 [facility] pH Auto test strip (U)Ordere d By: Edenilson Reinoso on 05-03-2023 pH (U) 5.5 [pH] 5.0-9.0 [facility] Alanine aminotransferase [En zymatic activity/volume] in Serum or PlasmaOrdered By: Sascha Sutton on 04-08-2023 ALT [Catalytic activity/Vol] 33 U/L [facility] Albumin [Mass/volume] in Ser um or Plasma by Bromocresol green (BCG) dye binding methoOrdered By: Sascha Sutton on 04-08-2023 Albumin BCG dye [Mass/Vol] 4.0 g/dL 3.5-5.7 [facility] Alkaline phosphatase [Enzyma tic activity/volume] in Serum or PlasmaOrdered By: Sascha Sutton on 05-19-2023 ALP [Catalytic activity/Vol] 82 U/L 34-104 [facility] Aspartate aminotransferase [ Enzymatic activity/volume] in Serum or PlasmaOrdered By: Sascha Sutton on 04-08-2023 AST [Catalytic activity/Vol] 19 U/L 13-39 [facility] Bilirubin.total [Mass/volume ] in Serum or PlasmaOrdered By: Sascha Sutton on 04-08-2023 Bilirubin [Mass/Vol] 0.8 mg/dL 0.3-1.0 [facility] Calcium [Mass/volume] in Ser um or PlasmaOrdered By: Sascha Sutton on 04-08-2023 Calcium [Mass/Vol] 8.8 mg/dL 8.6-10.3 [facility] Carbon dioxide, total [Moles /volume] in Serum or PlasmaOrdered By: Sascha Sutton 04-08-2023 CO2 [Moles/Vol] 28.1 mmol/L 21.0-31.0 [facility] Chloride [Moles/volume] in S ace or PlasmaOrdered By: Sascha Sutton on 04-08-2023 Chloride [Moles/Vol] 107 mmol/L 98-107 [facility] Cholesterol [Mass/volume] in Serum or PlasmaOrdered By: Sascha Sutton 04-08-2023 Cholesterol [Mass/Vol] 119 mg/dL 140-200 [facility] Comment on above: Chol less than 200 m g/dl low riskChol 201-239 mg/dl borderline riskChol 240 mg/dl and greater high risk Cholesterol in LDL Calc [Mas s/Vol]Ordered By: Sascha Sutton on 04-08-2023 Cholesterol in LDL [Mass/Vol] 55 mg/dL 0-100 [facility] Comment on above: LDL ATP III CLASSIFI CATIONLDL less than 100 mg/dL OptimalLDL 100-129 mg/dL Near or above optimalLDL 130-159 mg/dL Borderline highLDL 160-189 mg/dL HighLDL greater than 189 mg/dL Very high Cholesterol in VLDL Calc [Ma ss/Vol]Ordered By: Sascha Sutton on 04-08-2023 Cholesterol in VLDL [Mass/Vol] 25 mg/dL [facility] Comprehensive Metabolic Pane vivek 04-08-2023 Albumin [Mass/Vol] 4.0 g/dL Normal 3.5-5.7 [facility] Comment on above: Performed By: #### O XAL 24HRU, U24 CA, MAG 24HRU, CITRIC UR, PHOS 24HRU, URIC 24HRU #### [facility] , #### COL T V, U24 NA, CREA24 #### [address] Albumin/Globulin [Mass ratio] 1.9 {ratio} Normal [facility] Comment on above: Performed By: #### O XAL 24HRU, U24 CA, MAG 24HRU, CITRIC UR, PHOS 24HRU, URIC 24HRU #### [facility] , #### COL T V, U24 NA, CREA24 #### [address] ALP [Catalytic activity/Vol] 82 U/L Normal 34-104 [facility] Comment on above: Performed By: #### O XAL 24HRU, U24 CA, MAG 24HRU, CITRIC UR, PHOS 24HRU, URIC 24HRU #### [facility] , #### COL T V, U24 NA, CREA24 #### [address] ALT [Catalytic activity/Vol] 33 U/L Normal 7-52 [facility] Comment on above: Performed By: #### O XAL 24HRU, U24 CA, MAG 24HRU, CITRIC UR, PHOS 24HRU, URIC 24HRU #### [facility] , #### COL T V, U24 NA, CREA24 #### [facility] [address] [place] [address] Anion gap [Moles/Vol] 9.0 mmol/L Normal 6.0-15.0 [facility] Comment on above: Performed By: #### O XAL 24HRU, U24 CA, MAG 24HRU, CITRIC UR, PHOS 24HRU, URIC 24HRU #### [facility] , #### COL T V, U24 NA, CREA24 #### [address] AST [Catalytic activity/Vol] 19 U/L Normal 13-39 [facility] Comment on above: Performed By: #### O XAL 24HRU, U24 CA, MAG 24HRU, CITRIC UR, PHOS 24HRU, URIC 24HRU #### [facility] , #### COL T V, U24 NA, CREA24 #### [address] Bilirubin [Mass/Vol] 0.8 mg/dL Normal 0.3-1.0 [facility] Comment on above: Performed By: #### O XAL 24HRU, U24 CA, MAG 24HRU, CITRIC UR, PHOS 24HRU, URIC 24HRU #### [facility] , #### COL T V, U24 NA, CREA24 #### [address] Calcium [Mass/Vol] 8.8 mg/dL Normal 8.6-10.3 [facility] Comment on above: Performed By: #### O XAL 24HRU, U24 CA, MAG 24HRU, CITRIC UR, PHOS 24HRU, URIC 24HRU #### [facility] , #### COL T V, U24 NA, CREA24 #### [facility] [address] [place] [address] Chloride [Moles/Vol] 107 mmol/L Normal 98-107 [facility] Comment on above: Performed By: #### O XAL 24HRU, U24 CA, MAG 24HRU, CITRIC UR, PHOS 24HRU, URIC 24HRU #### [facility] , #### COL T V, U24 NA, CREA24 #### [address] CO2 [Moles/Vol] 28.1 mmol/L Normal 21.0-31.0 [facility] Comment on above: Performed By: #### O XAL 24HRU, U24 CA, MAG 24HRU, CITRIC UR, PHOS 24HRU, URIC 24HRU #### [facility] , #### COL T V, U24 NA, CREA24 #### [address] Creatinine [Mass/Vol] 0.85 mg/dL Normal 0.70-1.30 [facility] Comment on above: Performed By: #### O XAL 24HRU, U24 CA, MAG 24HRU, CITRIC UR, PHOS 24HRU, URIC 24HRU #### [facility] , #### COL T V, U24 NA, CREA24 #### [address] GFR/1.73 sq M.predicted MDRD (S/P/Bld) [Vol rate/Area] mL/min/{1.73_m2} [facility] Comment on above: Performed By: #### O XAL 24HRU, U24 CA, MAG 24HRU, CITRIC UR, PHOS 24HRU, URIC 24HRU #### [facility] , #### COL T V, U24 NA, CREA24 #### [facility] [address] [place] [address] Globulin (S) [Mass/Vol] 2.1 g/dL [facility] Comment on above: Performed By: #### O XAL 24HRU, U24 CA, MAG 24HRU, CITRIC UR, PHOS 24HRU, URIC 24HRU #### [facility] , #### COL T V, U24 NA, CREA24 #### [facility] [address] [place] [address] Glucose [Mass/Vol] 85 mg/dL Normal 70-100 [facility] Comment on above: Result Comment: [place] Glucose Reference Range is dependent on time and content of last meal. Glucose of more than 200 mg/dL in a nonstressed, ambulatory subject supports the diagnosis of Diabetes Mellitus. ADA recommended reference range Performed By: #### O XAL 24HRU, U24 CA, MAG 24HRU, CITRIC UR, PHOS 24HRU, URIC 24HRU #### [facility] , #### COL T V, U24 NA, CREA24 #### [address] Potassium [Moles/Vol] 4.1 mmol/L Normal 3.5-5.1 [facility] Comment on above: Performed By: #### O XAL 24HRU, U24 CA, MAG 24HRU, CITRIC UR, PHOS 24HRU, URIC 24HRU #### [facility] , #### COL T V, U24 NA, CREA24 #### [address] Protein [Mass/Vol] 6.1 g/dL Low 6.4-8.9 [facility] Comment on above: Performed By: #### O XAL 24HRU, U24 CA, MAG 24HRU, CITRIC UR, PHOS 24HRU, URIC 24HRU #### [facility] , #### COL T V, U24 NA, CREA24 #### [place] [address] [place] Sodium [Moles/Vol] 140 mmol/L Normal 136-145 [facility] Comment on above: Performed By: #### O XAL 24HRU, U24 CA, MAG 24HRU, CITRIC UR, PHOS 24HRU, URIC 24HRU #### [facility] , #### COL T V, U24 NA, CREA24 #### [place] [address] [place] Urea nitrogen [Mass/Vol] 17 mg/dL Normal 7-25 [facility] Comment on above: Performed By: #### O XAL 24HRU, U24 CA, MAG 24HRU, CITRIC UR, PHOS 24HRU, URIC 24HRU #### [facility] , #### COL T V, U24 NA, CREA24 #### [facility] [address] [place] [address] Creatinine [Mass/volume] in Serum or PlasmaOrdered By: Sascha Sutton on 04-08-2023 Creatinine [Mass/Vol] 0.85 mg/dL 0.70-1.30 [facility] Globulin Calc (S) [Mass/Vol] Ordered By: Sascha Sutton on 04-08-2023 Globulin (S) [Mass/Vol] 2.1 g/dL [facility] Glucose [Mass/volume] in Ser um or PlasmaOrdered By: Sascha Sutton on 04-08-2023 Glucose [Mass/Vol] 85 mg/dL 70-100 [facility] Comment on above: ADA recommended refe rence rangeRandom Glucose Reference Range is dependent on time and content of last meal. Glucose of more than 200 mg/dL in a nonstressed, ambulatory subject supports the diagnosis of Diabetes Mellitus. Lipid Panelon 04-08-2023 Cholesterol [Mass/Vol] 119 mg/dL Low 140-200 [facility] Comment on above: Result Comment: Chol less than 200 mg/dl low risk Chol 201-239 mg/dl borderline risk Chol 240 mg/dl and greater high risk Performed By: #### O XAL 24HRU, U24 CA, MAG 24HRU, CITRIC UR, PHOS 24HRU, URIC 24HRU #### [facility] , #### COL T V, U24 NA, CREA24 #### [facility] [address] [place] [address] Cholesterol in HDL [Mass/Vol] 39 mg/dL Normal 29-71 [facility] Comment on above: Result Comment: HDL CHOL ATP-III CLASSIFICATION Cardiovascular Risk HDL > or equal to 60 mg/dL LOW HDL < 40 mg/dL HIGH Performed By: #### O XAL 24HRU, U24 CA, MAG 24HRU, CITRIC UR, PHOS 24HRU, URIC 24HRU #### [facility] , #### COL T V, U24 NA, CREA24 #### [facility] [address] [place] [address] Cholesterol.total/Chol esterol in HDL [Mass ratio] 3.1 {ratio} Normal <5.0 [facility] Comment on above: Result Comment: PERF ORMED BY: [place] [address] PATHOLOGIST [employer] OLMAN ALBARRAN M.D. Performed By: #### O XAL 24HRU, U24 CA, MAG 24HRU, CITRIC UR, PHOS 24HRU, URIC 24HRU #### [facility] , #### COL T V, U24 NA, CREA24 #### [address] LDL Cholesterol,Calculated 55 mg/dL Normal 0-100 [facility] Comment on above: Result Comment: LDL ATP III CLASSIFICATION LDL less than 100 mg/dL Optimal LDL 100-129 mg/dL Near or above optimal LDL 130-159 mg/dL Borderline high LDL 160-189 mg/dL High LDL greater than 189 mg/dL Very high Performed By: #### O XAL 24HRU, U24 CA, MAG 24HRU, CITRIC UR, PHOS 24HRU, URIC 24HRU #### [facility] , #### COL T V, U24 NA, CREA24 #### [address] Triglyceride w/Reflex 125 mg/dL Normal 0-149 [facility] Comment on above: Result Comment: TRIG ATP III CLASSIFICATION TRIG less than 150 mg/dL Normal TRIG 150-199 mg/dL Borderline high TRIG 200-500 mg/dL High TRIG greater than 500 mg/dL Very high Standard traceable to the Center for Disease Conrtrol and Prevention (CDC) test method. Performed By: #### O XAL 24HRU, U24 CA, MAG 24HRU, CITRIC UR, PHOS 24HRU, URIC 24HRU #### [facility] , #### COL T V, U24 NA, CREA24 #### [address] VLDL CHOLESTEROL 25 mg/dL Normal [facility] Comment on above: Performed By: #### O XAL 24HRU, U24 CA, MAG 24HRU, CITRIC UR, PHOS 24HRU, URIC 24HRU #### [facility] , #### COL T V, U24 NA, CREA24 #### [facility] [address] [place] [address] No Panel InformationOrdered By: Sascha Sutton on 04-08-2023 Estimated GFR (CKD-EPI) > 60.0 mL/Min [facility] Creatinine Clearance (Chem N/A [facility] PSA Screen (Yearly Only)on 0 04-08-2023 PSA Screen (Yearly Only) 1.770 ng/mL Normal 0.000-4.00 0 [facility] Comment on above: Order Comment: URINE COLLECTION TIME (HRS): 24 URINE VOLUME (MILLILTERS): 2960 Result Comment: PERF ORMED BY: [place] [address] PATHOLOGIST [employer] OLMAN ALBARRAN M.D. Performed By: #### O XAL 24HRU, U24 CA, MAG 24HRU, CITRIC UR, PHOS 24HRU, URIC 24HRU #### [facility] , #### COL T V, U24 NA, CREA24 #### [facility] [address] [place] [address] Potassium [Moles/volume] in Serum or PlasmaOrdered By: Sascha Sutton on 04-08-2023 Potassium [Moles/Vol] 4.1 mmol/L 3.5-5.1 [facility] Prostate specific Ag [Mass/v olume] in Serum or PlasmaOrdered By: Sascha Sutton on 04-08-2023 Prostate specific Ag [Mass/Vol] 1.770 ng/mL 0.000-4.00 0 [facility] Protein [Mass/volume] in Ser um or PlasmaOrdered By: Sascha Sutton on 04-08-2023 Protein [Mass/Vol] 6.1 g/dL 6.4-8.9 [facility] Serum or plasma albumin/glob ulin mass ratioOrdered By: Sascha Sutton on 04-08-2023 Albumin/Globulin [Mass ratio] 1.9 {ratio} [facility] Serum or plasma anion gap de terminationOrdered By: Sascha Sutton on 04-08-2023 Anion gap [Moles/Vol] 9.0 mmol/L 6.0-15.0 [facility] Serum or plasma high density lipoprotein (HDL) cholesterol measurementOrdered By: Sascha Sutton on 04-08-2023 Cholesterol in HDL [Mass/Vol] 39 mg/dL 29- [facility] Comment on above: HDL CHOL ATP-III CLA SSIFICATION Cardiovascular RiskHDL > or equal to 60 mg/dL LOWHDL < 40 mg/dL HIGH Serum or plasma total choles terol/high density lipoprotein (HDL) cholesterol mass ratOrdered By: Sascha Sutton on 04-08-2023 Cholesterol.total/Chol esterol in HDL [Mass ratio] 3.1 {ratio} <5.0 [facility] Sodium [Moles/volume] in Ser um or PlasmaOrdered By: Sascha Sutton on 04-08-2023 Sodium [Moles/Vol] 140 mmol/L 136-145 [facility] Triglyceride [Mass/volume] i n Serum or PlasmaOrdered By: Sascha Sutton on 04-08-2023 Triglyceride [Mass/Vol] 125 mg/dL 0-149 [facility] Comment on above: TRIG ATP III CLASSIF ICATIONTRIG less than 150 mg/dL NormalTRIG 150-199 mg/dL Borderline highTRIG 200-500 mg/dL High TRIG greater than 500 mg/dL Very highStandard traceable to the Center for Disease Conrtrol and Prevention (CDC) test method. Urea nitrogen [Mass/volume] in Serum or PlasmaOrdered By: Sascha Sutton on 04-08-2023 Urea nitrogen [Mass/Vol] 17 mg/dL 7-25 [facility] Activated partial thrombopla stin time (aPTT) in platelet poor plasma by coagulation aOrdered By: Melanie Trujillo on 03-31-2023 aPTT Coag (PPP) [Time] 39.0 s 25.1-36.5 [facility] Basophils Auto (Bld) [#/Vol] Ordered By: Melanie Trujillo on 03-31-2023 Basophils (Bld) [#/Vol] 0.0 10*3/uL 0.0-0.2 [facility] Basophils/100 WBC Auto (Bld) Ordered By: Melanie Trujillo on 03-31-2023 Basophils/100 WBC (Bld) 0.6 % . [facility] Blood Urea Nitrogenon 2022 Urea nitrogen [Mass/Vol] 23 mg/dL Normal 7-25 [facility] Comment on above: Performed By: #### O XAL 24HRU, U24 CA, MAG 24HRU, CITRIC UR, PHOS 24HRU, URIC 24HRU #### [facility] , #### COL T V, U24 NA, CREA24 #### [facility] [address] Carbon dioxide, total [Moles /volume] in Serum or PlasmaOrdered By: Melanie Trujillo on 03-31-2023 CO2 [Moles/Vol] 26.4 mmol/L 21.0-31.0 [facility] Chloride [Moles/volume] in S ace or PlasmaOrdered By: Melanie Trujillo on 03-31-2023 Chloride [Moles/Vol] 106 mmol/L 98-107 [facility] Cholesterol [Mass/volume] in Serum or PlasmaOrdered By: Melanie Trujillo on 03-31-2023 Cholesterol [Mass/Vol] 132 mg/dL 140-200 [facility] Comment on above: Chol less than 200 m g/dl low riskChol 201-239 mg/dl borderline riskChol 240 mg/dl and greater high risk Cholesterol in LDL Calc [Mas s/Vol]Ordered By: Melanie Trujillo on 03-31-2023 Cholesterol in LDL [Mass/Vol] 71 mg/dL 0-100 [facility] Comment on above: LDL ATP III CLASSIFI CATIONLDL less than 100 mg/dL OptimalLDL 100-129 mg/dL Near or above optimalLDL 130-159 mg/dL Borderline highLDL 160-189 mg/dL HighLDL greater than 189 mg/dL Very high Cholesterol in VLDL Calc [Ma ss/Vol]Ordered By: Melanie Trujillo on 03-31-2023 Cholesterol in VLDL [Mass/Vol] 21 mg/dL [facility] Coagulation Profileon 2022 aPTT Coag (Bld) [Time] 39.0 s High 25.1-36.5 [facility] Comment on above: Result Comment: PERF ORMED BY: [place] [address] PATHOLOGIST [employer] OLMAN ALBARRAN M.D. Performed By: #### O XAL 24HRU, U24 CA, MAG 24HRU, CITRIC UR, PHOS 24HRU, URIC 24HRU #### [facility] , #### COL T V, U24 NA, CREA24 #### [address] INR Coag (PPP) [Relative time] 1.1 {INR} Normal [facility] Comment on above: Result Comment: INR Therapeutic Range A) Pre- and Peroperative OAT started two weeks before surgery. NOT HIP SURGERY: 1.5 - 2.5 HIP SURGERY: 2 - 3 B) Primary and secondary prevention of venous THROMBOSIS: 2 - 3 C) Active venous thrombosis, pulmonary embolism and prevention of recurrent venous thrombosis: 2 - 3 D) Prevention of arterial thromboembolism including patients with mechanical heart valves: 3 - 4.5 Performed By: #### O XAL 24HRU, U24 CA, MAG 24HRU, CITRIC UR, PHOS 24HRU, URIC 24HRU #### [facility] , #### COL T V, U24 NA, CREA24 #### [address] PT Coag (PPP) [Time] 12.3 s Normal 9.0-12.9 [facility] Comment on above: Performed By: #### O XAL 24HRU, U24 CA, MAG 24HRU, CITRIC UR, PHOS 24HRU, URIC 24HRU #### [facility] , #### COL T V, U24 NA, CREA24 #### [address] Complete Blood Count Auto Di ffon 03-31-2023 Basophils (Bld) [#/Vol] 0.0 10*3/uL Normal 0.0-0.2 [facility] Comment on above: Result Comment: PERF ORMED BY: [place] [address] PATHOLOGIST [employer] OLMAN ALBARRAN M.D. Performed By: #### O XAL 24HRU, U24 CA, MAG 24HRU, CITRIC UR, PHOS 24HRU, URIC 24HRU #### [facility] , #### COL T V, U24 NA, CREA24 #### [address] Basophils/100 WBC (Bld) 0.6 % Normal . [facility] Comment on above: Performed By: #### O XAL 24HRU, U24 CA, MAG 24HRU, CITRIC UR, PHOS 24HRU, URIC 24HRU #### [facility] , #### COL T V, U24 NA, CREA24 #### [address] Eosinophils (Bld) [#/Vol] 0.1 10*3/uL Normal 0.0-0.45 [facility] Comment on above: Performed By: #### O XAL 24HRU, U24 CA, MAG 24HRU, CITRIC UR, PHOS 24HRU, URIC 24HRU #### [facility] , #### COL T V, U24 NA, CREA24 #### [address] Eosinophils/100 WBC (Bld) 1.6 % Normal . [facility] Comment on above: Performed By: #### O XAL 24HRU, U24 CA, MAG 24HRU, CITRIC UR, PHOS 24HRU, URIC 24HRU #### [facility] , #### COL T V, U24 NA, CREA24 #### [address] Erythrocyte distribution width (RBC) [Ratio] 14.5 % Normal 12.0-14.8 [facility] Comment on above: Performed By: #### O XAL 24HRU, U24 CA, MAG 24HRU, CITRIC UR, PHOS 24HRU, URIC 24HRU #### [facility] , #### COL T V, U24 NA, CREA24 #### [address] Hematocrit (Bld) [Volume fraction] 46.7 % Normal 38.8-50.0 [facility] Comment on above: Performed By: #### O XAL 24HRU, U24 CA, MAG 24HRU, CITRIC UR, PHOS 24HRU, URIC 24HRU #### [facility] , #### COL T V, U24 NA, CREA24 #### [address] Hemoglobin (Bld) [Mass/Vol] 16.0 g/dL Normal 13.0-17.0 [facility] Comment on above: Performed By: #### O XAL 24HRU, U24 CA, MAG 24HRU, CITRIC UR, PHOS 24HRU, URIC 24HRU #### [facility] , #### COL T V, U24 NA, CREA24 #### [address] Lymphocytes (Bld) [#/Vol] 0.8 10*3/uL Low 1.00-4.8 [facility] Comment on above: Performed By: #### O XAL 24HRU, U24 CA, MAG 24HRU, CITRIC UR, PHOS 24HRU, URIC 24HRU #### [facility] , #### COL T V, U24 NA, CREA24 #### [address] Lymphocytes/100 WBC (Bld) 13.8 % Normal . [facility] Comment on above: Performed By: #### O XAL 24HRU, U24 CA, MAG 24HRU, CITRIC UR, PHOS 24HRU, URIC 24HRU #### [facility] , #### COL T V, U24 NA, CREA24 #### [address] MCH (RBC) [Entitic mass] 30.4 pg Normal 27.5-35.2 [facility] Comment on above: Performed By: #### O XAL 24HRU, U24 CA, MAG 24HRU, CITRIC UR, PHOS 24HRU, URIC 24HRU #### [facility] , #### COL T V, U24 NA, CREA24 #### [address] MCV (RBC) [Entitic vol] 89.0 fL Normal 83.5-101 [facility] Comment on above: Performed By: #### O XAL 24HRU, U24 CA, MAG 24HRU, CITRIC UR, PHOS 24HRU, URIC 24HRU #### [facility] , #### COL T V, U24 NA, CREA24 #### [address] Mean Corpuscular HGB Conc 34.2 g/dL Normal 32.5-35.6 [facility] Comment on above: Performed By: #### O XAL 24HRU, U24 CA, MAG 24HRU, CITRIC UR, PHOS 24HRU, URIC 24HRU #### [facility] , #### COL T V, U24 NA, CREA24 #### [address] Monocytes (Bld) [#/Vol] 0.8 10*3/uL Normal 0.0-0.8 [facility] Comment on above: Performed By: #### O XAL 24HRU, U24 CA, MAG 24HRU, CITRIC UR, PHOS 24HRU, URIC 24HRU #### [facility] , #### COL T V, U24 NA, CREA24 #### [address] [address] [place] Monocytes/100 WBC (Bld) 13.9 % Normal . [facility] Comment on above: Performed By: #### O XAL 24HRU, U24 CA, MAG 24HRU, CITRIC UR, PHOS 24HRU, URIC 24HRU #### [facility] , #### COL T V, U24 NA, CREA24 #### [address] Neutrophils (Bld) [#/Vol] 4.0 10*3/uL Normal 1.8-7.7 [facility] Comment on above: Performed By: #### O XAL 24HRU, U24 CA, MAG 24HRU, CITRIC UR, PHOS 24HRU, URIC 24HRU #### [facility] , #### COL T V, U24 NA, CREA24 #### [address] Neutrophils/100 WBC (Bld) 70.1 % Normal . [facility] Comment on above: Performed By: #### O XAL 24HRU, U24 CA, MAG 24HRU, CITRIC UR, PHOS 24HRU, URIC 24HRU #### [facility] , #### COL T V, U24 NA, CREA24 #### [address] NRBC% 0.1 /100{WBC} Normal 0-0.5 [facility] Comment on above: Performed By: #### O XAL 24HRU, U24 CA, MAG 24HRU, CITRIC UR, PHOS 24HRU, URIC 24HRU #### [facility] , #### COL T V, U24 NA, CREA24 #### [facility] [address] [place] [address] Platelet mean volume (Bld) [Entitic vol] 8.4 fL Normal 6.6-10.1 [facility] Comment on above: Performed By: #### O XAL 24HRU, U24 CA, MAG 24HRU, CITRIC UR, PHOS 24HRU, URIC 24HRU #### [facility] , #### COL T V, U24 NA, CREA24 #### [facility] [address] [place] [address] Platelets (Bld) [#/Vol] 180 10*3/uL Normal 150-450 [facility] Comment on above: Performed By: #### O XAL 24HRU, U24 CA, MAG 24HRU, CITRIC UR, PHOS 24HRU, URIC 24HRU #### [facility] , #### COL T V, U24 NA, CREA24 #### [facility] [address] [place] [address] RBC (Bld) [#/Vol] 5.24 10*6/uL Normal 3.90-5.60 [facility] Comment on above: Performed By: #### O XAL 24HRU, U24 CA, MAG 24HRU, CITRIC UR, PHOS 24HRU, URIC 24HRU #### [facility] , #### COL T V, U24 NA, CREA24 #### [address] WBC (Bld) [#/Vol] 5.7 10*3/uL Normal 4.1-10.5 [facility] Comment on above: Performed By: #### O XAL 24HRU, U24 CA, MAG 24HRU, CITRIC UR, PHOS 24HRU, URIC 24HRU #### [facility] , #### COL T V, U24 NA, CREA24 #### [facility] [address] [place] [address] Creatinineon 03-31-2023 Creatinine [Mass/Vol] 0.88 mg/dL Normal 0.70-1.30 [facility] Comment on above: Performed By: #### O XAL 24HRU, U24 CA, MAG 24HRU, CITRIC UR, PHOS 24HRU, URIC 24HRU #### [facility] , #### COL T V, U24 NA, CREA24 #### [facility] [address] [place] [address] [place] GFR/1.73 sq M.predicted MDRD (S/P/Bld) [Vol rate/Area] mL/min/{1.73_m2} Normal [facility] Comment on above: Performed By: #### O XAL 24HRU, U24 CA, MAG 24HRU, CITRIC UR, PHOS 24HRU, URIC 24HRU #### [facility] , #### COL T V, U24 NA, CREA24 #### [facility] [address] [place] [address] Creatinine [Mass/volume] in Serum or PlasmaOrdered By: Melanie Trujillo on 03-31-2023 Creatinine [Mass/Vol] 0.88 mg/dL 0.70-1.30 [facility] Electrolyteson 03-31-2023 Anion gap [Moles/Vol] 10.7 mmol/L Normal 6.0-15.0 [facility] Comment on above: Performed By: #### O XAL 24HRU, U24 CA, MAG 24HRU, CITRIC UR, PHOS 24HRU, URIC 24HRU #### [facility] , #### COL T V, U24 NA, CREA24 #### [facility] [address] [place] [address] [place] Chloride [Moles/Vol] 106 mmol/L Normal 98-107 [facility] Comment on above: Performed By: #### O XAL 24HRU, U24 CA, MAG 24HRU, CITRIC UR, PHOS 24HRU, URIC 24HRU #### [facility] , #### COL T V, U24 NA, CREA24 #### [facility] [address] [place] [address] [place] CO2 [Moles/Vol] 26.4 mmol/L Normal 21.0-31.0 [facility] Comment on above: Performed By: #### O XAL 24HRU, U24 CA, MAG 24HRU, CITRIC UR, PHOS 24HRU, URIC 24HRU #### [facility] , #### COL T V, U24 NA, CREA24 #### [facility] [address] [place] [address] Potassium [Moles/Vol] 4.1 mmol/L Normal 3.5-5.1 [facility] Comment on above: Performed By: #### O XAL 24HRU, U24 CA, MAG 24HRU, CITRIC UR, PHOS 24HRU, URIC 24HRU #### [facility] , #### COL T V, U24 NA, CREA24 #### [facility] [address] [place] [address] Sodium [Moles/Vol] 139 mmol/L Normal 136-145 [facility] Comment on above: Performed By: #### O XAL 24HRU, U24 CA, MAG 24HRU, CITRIC UR, PHOS 24HRU, URIC 24HRU #### [facility] , #### COL T V, U24 NA, CREA24 #### [facility] [address] [place] [address] Eosinophils Auto (Bld) [#/Vo l]Ordered By: Melanie Trujillo on 03-31-2023 Eosinophils (Bld) [#/Vol] 0.1 10*3/uL 0.0-0.45 [facility] Eosinophils/100 WBC Auto (Bl d)Ordered By: Melanie Trujillo on 03-31-2023 Eosinophils/100 WBC (Bld) 1.6 % . [facility] Erythrocyte distribution wid th Auto (RBC) [Ratio]Ordered By: Melanie Trujillo on 03-31-2023 Erythrocyte distribution width (RBC) [Ratio] 14.5 % 12.0-14.8 [facility] Hematocrit Auto (Bld) [Volum e fraction]Ordered By: Melanie Trujillo on 03-31-2023 Hematocrit (Bld) [Volume fraction] 46.7 % 38.8-50.0 [facility] Hemoglobin [Mass/volume] in BloodOrdered By: Melanie Trujillo on 03-31-2023 Hemoglobin (Bld) [Mass/Vol] 16.0 g/dL 13.0-17.0 [facility] Laboratory - Chemistry and C hemistry - challengeon 03-31-2023 Cholesterol [Mass/Vol] 132\S\132 below low threshold 140-200 -[facility] manda 250 DO Work Phone: Comment on above: Chol less than 200 m g/dl low risk Chol 201-239 mg/dl borderline risk Chol 240 mg/dl and greater high risk Cholesterol in LDL [Mass/Vol] 71\S\71 Normal 0-100 -[facility] manda 250 DO Work Phone: Comment on above: LDL ATP III CLASSIFI CATION LDL less than 100 mg/dL Optimal LDL 100-129 mg/dL Near or above optimal LDL 130-159 mg/dL Borderline high LDL 160-189 mg/dL High LDL greater than 189 mg/dL Very high Laboratory - CoagulationOrde red By: Melanie Trujillo on 03-31-2023 PT Coag (PPP) [Time] 12.3 s 9.0-12.9 [facility] Leukocytes [#/volume] correc nat for nucleated erythrocytes in Blood by Automated counOrdered By: Melanie Trujillo on 03-31-2023 WBC corrected for nucl RBC Auto (Bld) [#/Vol] 5.7 10*3/uL 4.1-10.5 [facility] Lipid Panelon 03-31-2023 Cholesterol [Mass/Vol] 132 mg/dL Low 140-200 [facility] Comment on above: Result Comment: Chol less than 200 mg/dl low risk Chol 201-239 mg/dl borderline risk Chol 240 mg/dl and greater high risk Performed By: #### O XAL 24HRU, U24 CA, MAG 24HRU, CITRIC UR, PHOS 24HRU, URIC 24HRU #### [facility] , #### COL T V, U24 NA, CREA24 #### [address] Cholesterol in HDL [Mass/Vol] 40 mg/dL Normal 29-71 [facility] Comment on above: Result Comment: HDL CHOL ATP-III CLASSIFICATION Cardiovascular Risk HDL > or equal to 60 mg/dL LOW HDL < 40 mg/dL HIGH Performed By: #### O XAL 24HRU, U24 CA, MAG 24HRU, CITRIC UR, PHOS 24HRU, URIC 24HRU #### [facility] , #### COL T V, U24 NA, CREA24 #### [address] Cholesterol.total/Chol esterol in HDL [Mass ratio] 3.3 {ratio} Normal <5.0 [facility] Comment on above: Result Comment: PERF ORMED BY: [place] [address] PATHOLOGIST [employer] OLMAN ALBARRAN M.D. Performed By: #### O XAL 24HRU, U24 CA, MAG 24HRU, CITRIC UR, PHOS 24HRU, URIC 24HRU #### [facility] , #### COL T V, U24 NA, CREA24 #### [address] LDL Cholesterol,Calculated 71 mg/dL Normal 0-100 [facility] Comment on above: Result Comment: LDL ATP III CLASSIFICATION LDL less than 100 mg/dL Optimal LDL 100-129 mg/dL Near or above optimal LDL 130-159 mg/dL Borderline high LDL 160-189 mg/dL High LDL greater than 189 mg/dL Very high Performed By: #### O XAL 24HRU, U24 CA, MAG 24HRU, CITRIC UR, PHOS 24HRU, URIC 24HRU #### [facility] , #### COL T V, U24 NA, CREA24 #### [facility] [address] [place] [address] Triglyceride w/Reflex 106 mg/dL Normal 0-149 [facility] Comment on above: Result Comment: TRIG ATP III CLASSIFICATION TRIG less than 150 mg/dL Normal TRIG 150-199 mg/dL Borderline high TRIG 200-500 mg/dL High TRIG greater than 500 mg/dL Very high Standard traceable to the Center for Disease Conrtrol and Prevention (CDC) test method. Performed By: #### O XAL 24HRU, U24 CA, MAG 24HRU, CITRIC UR, PHOS 24HRU, URIC 24HRU #### [facility] , #### COL T V, U24 NA, CREA24 #### [facility] [address] VLDL CHOLESTEROL 21 mg/dL Normal [facility] Comment on above: Performed By: #### O XAL 24HRU, U24 CA, MAG 24HRU, CITRIC UR, PHOS 24HRU, URIC 24HRU #### [facility] , #### COL T V, U24 NA, CREA24 #### [facility] [address] Lymphocytes Auto (Bld) [#/Vo l]Ordered By: Melanie Trujillo on 03-31-2023 Lymphocytes (Bld) [#/Vol] 0.8 10*3/uL 1.00-4.8 [facility] Lymphocytes/100 WBC Auto (Bl d)Ordered By: Melanie Trujillo on 03-31-2023 Lymphocytes/100 WBC (Bld) 13.8 % . [facility] MCH Auto (RBC) [Entitic mass ]Ordered By: Melanie Trujillo on 03-31-2023 MCH (RBC) [Entitic mass] 30.4 pg 27.5-35.2 [facility] MCHC Auto (RBC) [Mass/Vol]Or dered By: Melanie Trujillo on 03-31-2023 MCHC (RBC) [Mass/Vol] 34.2 g/dL 32.5-35.6 [facility] MCV Auto (RBC) [Entitic vol] Ordered By: Mleanie Trujillo on 03-31-2023 MCV (RBC) [Entitic vol] 89.0 fL 83.5-101 [facility] Monocytes Auto (Bld) [#/Vol] Ordered By: Melanie Trujillo on 03-31-2023 Monocytes (Bld) [#/Vol] 0.8 10*3/uL 0.0-0.8 [facility] Monocytes/100 WBC Auto (Bld) Ordered By: Melanie Trujillo on 03-31-2023 Monocytes/100 WBC (Bld) 13.9 % . [facility] Neutrophils Auto (Bld) [#/Vo l]Ordered By: Melanie Trujillo on 03-31-2023 Neutrophils (Bld) [#/Vol] 4.0 10*3/uL 1.8-7.7 [facility] Neutrophils/100 WBC Auto (Bl d)Ordered By: Melanie Trujillo on 03-31-2023 Neutrophils/100 WBC (Bld) 70.1 % . [facility] No Panel InformationOrdered By: Melanie Trujillo on 03-31-2023 Estimated GFR (CKD-EPI) > 60.0 mL/Min [facility] Pharm[facility] Creatinine Clearance (Chem N/A [facility] No Panel Informationon 03-31 10.7\S\10.7 Normal 6.0-15.0 Merged with [facility] [employer] 250 DO Work Phone: 26.4\S\26.4 Normal 21.0-31.0 Merged with [facility] [employer] 250 DO Work Phone: 106\S\106 Normal 0-149 Merged with [facility] [employer] DO Work Phone: Comment on above: TRIG ATP III CLASSIF ICATION TRIG less than 150 mg/dL Normal TRIG 150-199 mg/dL Borderline high TRIG 200-500 mg/dL High TRIG greater than 500 mg/dL Very high Standard traceable to the Center for Disease Conrtrol and Prevention (CDC) test method. 4.1\S\4.1 Normal 3.5-5.1 Merged with [facility] [employer] 250 DO Work Phone: 139\S\139 Normal 136-145 Merged with [facility] [employer] 250 DO Work Phone: 23\S\23 Normal 7-25 Merged with [facility] [employer] 250 DO Work Phone: > 60.0 Normal Merged with [facility] [employer] 250 DO Work Phone: 0.88\S\0.88 Normal 0.70-1.30 Merged with [facility] [employer] 250 DO Work Phone: 3.3\S\3.3 Normal <5.0 -[facility] manda 250 DO Work Phone: Comment on above: PERFORMED BY:[facility] [place], [place] [phone] MEDICAL DIRECTOROLMAN ALBARRAN M.D. 21\S\21 Normal -[facility] manda 250 DO Work Phone: [phone] 40\S\40 Normal 29-71 -[facility] manda 250 DO Work Phone: Comment on above: HDL CHOL ATP-III CLA SSIFICATION Cardiovascular Risk HDL > or equal to 60 mg/dL LOW HDL < 40 mg/dL HIGH 0.0\S\0.0 Normal 0.0-0.2 -[facility] manda 250 DO Work Phone: Comment on above: PERFORMED BY:[facility] [place], [place] [id number] MEDICAL DIRECTOROLMAN ALBARRAN M.D. 0.1\S\0.1 Normal 0-0.5 -[facility] manda 250 DO Work Phone: [phone] 0.8\S\0.8 below low threshold 1.00-4.8 -[facility] [employer]anda 250 DO Work Phone: [phone] 4.0\S\4.0 Normal 1.8-7.7 Merged with [facility] manda 250 DO Work Phone: [phone] 0.6\S\0.6 Normal . [facility] with [facility] [employer]anda 250 DO Work Phone: [phone] 1.6\S\1.6 Normal . M[facility] with [facility] [employer]anda 250 DO Work Phone: [phone] 13.9\S\13.9 Normal . M[facility] with [facility] manda 250 DO Work Phone: [phone] 13.8\S\13.8 Normal . M[facility] with [facility] [employer]anda 250 DO Work Phone: [phone] 70.1\S\70.1 Normal . M[facility] with [facility] [employer]anda 250 DO Work Phone: [phone] 8.4\S\8.4 Normal 6.6-10.1 Merged with [facility] [employer]anda 250 DO Work Phone: [phone] 180\S\180 Normal 150-450 Merged with [facility] [employer]anda 250 DO Work Phone: [phone] 14.5\S\14.5 Normal 12.0-14.8 Merged with [facility] manda 250 DO Work Phone: [phone] 34.2\S\34.2 Normal 32.5-35.6 Merged with [facility] manda 250 DO Work Phone: [phone] 30.4\S\30.4 Normal 27.5-35.2 Merged with [facility] manda 250 DO Work Phone: 89.0\S\89.0 Normal 83.5-101 Merged with [facility] manda 250 DO Work Phone: [phone] 46.7\S\46.7 Normal 38.8-50.0 Merged with [facility] manda 250 DO Work Phone: [phone] 16.0\S\16.0 Normal 13.0-17.0 Merged with [facility] manda 250 DO Work Phone: [phone] 5.24\S\5.24 Normal 3.90-5.60 Merged with [facility] manda 250 DO Work Phone: [phone] 5.7\S\5.7 Normal 4.1-10.5 Merged with [facility] manda 250 DO Work Phone: [phone] 39.0\S\39.0 above high threshold 25.1-36.5 -[facility] manda 250 DO Work Phone: [phone] Comment on above: PERFORMED BY:[facility] [place] [phone] MEDICAL DIRECTOROLMAN ALBARRAN M.D. 1.1\S\1.1 Normal [facility] LabsV[facility] CenterSym[facility] 250 DO Work Phone: Comment on above: INR Therapeutic Rang e A) Pre- and Peroperative OAT started two weeks before surgery. NOT HIP SURGERY: 1.5 - 2.5 HIP SURGERY: 2 - 3 B) Primary and secondary prevention of venous THROMBOSIS: 2 - 3 C) Active venous thrombosis, pulmonary embolism and prevention of recurrent venous thrombosis: 2 - 3 D) Prevention of arterial thromboembolism including patients with mechanical heart valves: 3 - 4.5 12.3\S\12.3 Normal 9.0-12.9 Merged with [facility] [employer] 250 DO Work Phone: Nucleated erythrocytes [Pres ence] in Blood by Automated countOrdered By: Melanie Trujillo on 03-31-2023 Nucleated RBC Auto Ql (Bld) 0.1 /100{WBC} 0-0.5 [facility] Platelet mean volume Auto (B ld) [Entitic vol]Ordered By: Melanie Trujillo on 03-31-2023 Platelet mean volume (Bld) [Entitic vol] 8.4 fL 6.6-10.1 [facility] Platelet poor plasma interna tional normalized ratio (INR) by coagulation assay (relatOrdered By: Melanie Trujillo on 03-31-2023 INR Coag (PPP) [Relative time] 1.1 {INR} [facility] Comment on above: INR Therapeutic Rang e A) Pre- and Peroperative OAT started two weeks before surgery. NOT HIP SURGERY: 1.5 - 2.5 HIP SURGERY: 2 - 3B) Primary and secondary prevention of venous THROMBOSIS: 2 - 3C) Active venous thrombosis, pulmonary embolismand prevention of recurrent venous thrombosis: 2 - 3D) Prevention of arterial thromboembolismincluding patients with mechanical heart valves: 3 - 4.5 Platelets Auto (Bld) [#/Vol] Ordered By: Melanie Trujillo on 03-31-2023 Platelets (Bld) [#/Vol] 180 10*3/uL 150-450 [facility] Potassium [Moles/volume] in Serum or PlasmaOrdered By: Melanie Trujillo on 03-31-2023 Potassium [Moles/Vol] 4.1 mmol/L 3.5-5.1 [facility] RBC Auto (Bld) [#/Vol]Ordere d By: Melanie Trujillo on 03-31-2023 RBC (Bld) [#/Vol] 5.24 10*6/uL 3.90-5.60 [facility] Serum or plasma anion gap de terminationOrdered By: Melanie Trujillo on 03-31-2023 Anion gap [Moles/Vol] 10.7 mmol/L 6.0-15.0 [facility] Serum or plasma high density lipoprotein (HDL) cholesterol measurementOrdered By: Melanie Trujillo on 03-31-2023 Cholesterol in HDL [Mass/Vol] 40 mg/dL 29- [facility] Comment on above: HDL CHOL ATP-III CLA SSIFICATION Cardiovascular RiskHDL > or equal to 60 mg/dL LOWHDL < 40 mg/dL HIGH Serum or plasma total choles terol/high density lipoprotein (HDL) cholesterol mass ratOrdered By: Melanie Trujillo on 03-31-2023 Cholesterol.total/Chol esterol in HDL [Mass ratio] 3.3 {ratio} <5.0 [facility] Sodium [Moles/volume] in Ser um or PlasmaOrdered By: Melanie Trujillo on 03-31-2023 Sodium [Moles/Vol] 139 mmol/L 136-145 [facility] Triglyceride [Mass/volume] i n Serum or PlasmaOrdered By: Melanie Trujillo on 03-31-2023 Triglyceride [Mass/Vol] 106 mg/dL 0-149 [facility] Comment on above: TRIG ATP III CLASSIF ICATIONTRIG less than 150 mg/dL NormalTRIG 150-199 mg/dL Borderline highTRIG 200-500 mg/dL High TRIG greater than 500 mg/dL Very highStandard traceable to the Center for Disease Conrtrol and Prevention (CDC) test method. Urea nitrogen [Mass/volume] in Serum or PlasmaOrdered By: Melanie Trujillo on 03-31-2023 Urea nitrogen [Mass/Vol] 23 mg/dL 7- [facility] WBC Auto (Bld) [#/Vol]Ordere d By: Melanie Trujillo on 03-31-2023 WBC (Bld) [#/Vol] 5.7 10*3/uL 4.1-10.5 [facility] Office Visit (Cardiology)on 03-30-2023 Follow-up visit Diagnoses/Problems Assessed Chest pain (786.50) (R07.9) SOB (shortness of breath) on exertion (786.05) (R06.02) Hyperlipemia (272.4) (E78.5) Hypertension (401.9) (I10) Class 1 obesity with body mass index (BMI) of 32.0 to 32.9 in adult (278.00,V85.32) (E66.9,Z68.32) Former smoker (V15.82) (Z87.891) quit in the 's 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) Rheumatoid arthritis (714.0) (M06.9) Orders Chest pain Start: Nitroglycerin 0.4 MG Sublingual Tablet Sublingual; PLACE 1 TABLET UNDER THE TONGUE EVERY 5 MINUTES FOR UP TO 3 DOSES NEEDED FOR CHEST PAIN.CALL 911 IF PAIN PERSISTS Chest pain, Hyperlipemia Cardiac Catherization; Status:Active - Retrospective Authorization; Requested for:03Apr2023; Chest pain, Hypertension, SOB (shortness of breath) on exertion IO EKG Electrocardiogram- 12 Lead; Status:Complete; Done: 30Mar2023 Class 1 obesity with body mass index (BMI) of 32.0 to 32.9 in adult Healthy Weight Tips; Status:Complete - Retrospective Authorization; Done: 30Mar2023 Some eating tips that can help you lose weight.; Status:Complete - Retrospective Authorization; Done: 30Mar2023 Hyperlipemia Renew: Aspirin 325 MG Oral Tablet Delayed Release; Take 1 tablet daily Renew: Simvastatin 20 MG Oral Tablet; TAKE 1 TABLET AT BEDTIME SocHx: Former smoker Tobacco Use Screening; Status:Complete; Done: 30Mar2023 Patient Instructions Please bring all medicines, vitamins, and herbal supplements with you when you come to the office. Prescriptions will not be filled unless you are compliant with your follow up appointments or have a follow up appointment scheduled as per instruction of your physician. Refills should be requested at the time of your visit. Follow up after testing completed Chief Complaint VALENTIN TORRE is being seen for a consultation for chest pain. 67-year-old gentleman seen in cardiology consultation at the request of Dr. Sutton following an episode of severe chest discomfort with left and right neck radiation that occurred [facility] this past [facility] with subsequent stress imaging performed after he was admitted at [facility] that was reportedly unremarkable. Patient has since had another episode of neck discomfort since then. He has no history of myocardial infarction, revascularization, stroke, thromboembolic or bleeding disorder He does have a history of hypertension, obesity, hyperlipidemia, rheumatoid arthritis, lupus, and reportedly undifferentiated connective tissue disease. Details of the stress test are not available. Dr. Sutton's outpatient note is reviewed and he states that the initial report of the imaging was reportedly normal. Today's ECG reveals sinus rhythm with inferolateral T wave inversions that apparently is chronic we have no old ECGs to compare. Informed decision-making process, risks, benefits and alternatives discussed with patient and his for over 30 minutes this morning in regards to conservative management versus consideration for further imaging including CT angiography versus heart catheterization. We have offered him nitroglycerin with observation, as well as current medical therapies in addition to catheterization. Patient is very anxious and interested to know if he has significant coronary disease to worry about. Based on his presenting history, abnormal ECG, comorbidities, and age, proceeding with left heart catheterization would be appropriate. We will proceed with prescribing on sublingual nitroglycerin, and proceed with a heart catheterization sometime next week Surgical History Problems History of Carpal tunnel surgery History of Cleft palate repair History of Complete colonoscopy History of Ear surgery History of Esophageal dilation History of Eye surgery History of Hernia repair History of Knee replacement History of Knee surgery History of Shoulder surgery History of Spinal surgery History of Tympanoplasty Current Meds Medication NameInstruction Aspirin 325 MG Oral Tablet Delayed ReleaseTake 1 tablet daily Folic Acid 1 MG Oral Tablet1-2 daily Leflunomide 10 MG Oral TabletTAKE 1 TABLET DAILY DIRECTED. Leucovorin Calcium 5 MG Oral TabletTAKE 1 TABLET ONCE WEEKLY Lisinopril-hydroCHLOROthiaz candi 20-12.5 MG Oral TabletTAKE 1 TABLET DAILY. Medrol (Nicolas) 4 MG TABSUSE DIRECTED. Methotrexate Sodium 1 GM Injection Solution ReconstitutedUSE DIRECTED. Montelukast Sodium 10 MG Oral TabletTAKE 1 TABLET AT BEDTIME. Nabumetone 750 MG Oral TabletTAKE 1 TABLET EVERY 12 HOURS. Omeprazole 40 MG Oral Capsule Delayed ReleaseTAKE 1 CAPSULE Daily Plaquenil 200 MG Oral TabletTAKE 1 TABLET TWICE DAILY WITH FOOD. prednisoLONE Acetate P-F 1 % Ophthalmic Suspensionas directed Simvastatin 20 MG Oral TabletTAKE 1 TABLET AT BEDTIME. traMADol HCl - 50 MG Oral TabletTAKE 1 TABLET EVERY 12 HOURS NEEDED. Tylenol 500 MG CAPS2 caps 2-3 times daily Allergies Medication (more content not included)... Normal Dsg.nr Tobacco Screening.on 023 Adult depression screening assessment No Merged with [facility] [employer] 250 DO Work Phone: Fall risk assessment a) No falls within the last year Merged with [facility] [employer] 250 DO Work Phone: Tobacco use status [facility] b) No Merged with [facility] [employer] DO Work Phone: ECHOCARDIO M/2D COMPLETEon 0 03-21-2023 ECHOCARDIO M/2D COMPLETE Patient: VALENTIN TORRE Exam Date: 03/21/2023 : 1955 Gender:M Ordering : SHAIKH Pee MULTANI . Admission #: [id number] Family : DR SASCHA SUTTON Order #: [id number] CLICK HERE TO VIEW EXAM ECHOCARDIOGRAM REPORT PROCEDURE: CARDIO PULMONARY ECHOCARDIO M/2D COMP INDICATIONS: Chest pain COMPARISON: None. DESCRIPTION: COMPLETE ECHOCARDIOGRAM Real-time transthoracic echocardiography with 2D, M-mode, spectral and color flow Doppler performed. QUALITY: Technical quality was good. LEFT VENTRICLE: Normal chamber size. Thickened septal wall. LV EF: Global left ventricular systolic function is normal; visually estimated ejection fraction is 55 to 60%. No significant wall motion abnormalities. DIASTOLIC: Diastolic function is indeterminate. ATRIAL SEPTUM: Inadequately seen. LEFT ATRIUM: Normal chamber size. RIGHT ATRIUM: Normal chamber size. RIGHT VENTRICLE: Normal chamber size. Normal right ventricular systolic function. TRICUSPID VALVE: Normal mobility and thickness. Trivial regurgitation. Mild pulmonary hypertension. RVSP 37mmHg MITRAL VALVE: Normal mobility and thickness. No mitral valve prolapse. No evidence of mitral valve stenosis. Trivial mitral regurgitation. AORTIC VALVE: Normal trileaflet appearance. No visible sclerosis. Normal leaflet mobility. No evidence of aortic valve stenosis. Trivial aortic regurgitation. AORTIC ROOT: Normal diameter and appearance. Mildly dilated ascending aorta. PULMONIC VALVE: Normal thickness and mobility. No stenosis. Trivial regurgitation. PERICARDIUM: No evidence of pericardial effusion. IVC: Collapses with inspirations. Normal size. CONCLUSION: Global left ventricular systolic function is normal; visually estimated ejection fraction is 55 to 60%. Diastolic function is indeterminate. The right ventricle is normal in size and systolic function. Mildly elevated right-sided pressures. No significant valvular abnormalities. Mildly dilated ascending aorta. Adult Echocardiography Procedure Report Left Ventricle LVEDD (3.7 - 5.6 cm): 5.43 cm LVESD (2.2 - 4.0 cm): 4.34 cm LVIVS thickness (0.6 - 1.2 cm): 1.30 cm LVPW thickness (0.5 - 1.0 cm): 0.80 cm e': 0.08 m/s E - e': 6.38 LVOT Max Gradient: 2.49 mm[Hg] Peak Velocity (LVOT): 0.79 m/s Mean Velocity (LVOT): 0.52 m/s LVOT Diameter 2.27 cm Left Atrium LA Volume Index (2D A2C): 51.52 ml, 51.52 ml Left Atrium Systolic Dimension: 3.95 cm Mitral Valve MV E to A Ratio: 0.81 Mitral Valve A-Wave Peak Velocity: 0.63 m/s Mitral Valve E-Wave Peak Velocity: 0.51 m/s Right Ventricle RV Internal Diastolic Dimension: 3.66 cm Aorta AO Root Diam: 3.34 cm Ascending Ao Diam: 3.67 cm Aortic Valve AoV Area (Peak Tim): 3.15 cm2, 3.15 cm2 AoV Area (VTI): 3.04 cm2, 3.04 cm2 Deceleration Towner: 0.56 m/s2 Pressure Half-Time: 991.91 ms Peak Velocity(Antegrade Flow): 1.02 m/s Peak Gradient(Antegrade Flow): 4.13 mm[Hg] Mean Velocity(Antegrade Flow): 0.71 m/s Mean Gradient(Antegrade Flow): 2.30 mm[Hg] Velocity Time Integral: 23.95 cm Tricuspid Valve Peak Velocity (Regurgitant Flow): 2.34 m/s, 2.93 m/s Pulmonic Valve Mean Gradient: 2.53 mm[Hg], 2.82 mm[Hg] Mean Velocity: 0.75 m/s, 0.78 m/s Peak Velocity: 1.05 m/s, 1.09 m/s Peak Gradient: 4.39 mm[Hg], 4.78 mm[Hg] Right Atrium Right Atrium Systolic Pressure: 55.12 ml, 55.12 ml Dictated by: Kael Huynh M.D. on 03/24/2023 at 12:17 Approved by: Kael Huynh M.D. on 03/24/2023 at 12:21 Normal [facility] NM STRESS/REST MULTIon 03-21 NM STRESS/REST MULTI Patient: JANEL TORRE Exam Date: 03/21/2023 : 1955 Gender:M Ordering : SHAIKH Pee MULTANI . Admission #: [id number] Family : Order #: [id number] CLICK HERE TO VIEW EXAM RADIOLOGY REPORT PROCEDURE: RADIONUCLIDE IMAGING STRESS/REST MULTI COMPARISON: None. INDICATIONS: Chest pain, abnormal EKG TECHNIQUE: Exam Description: Stress/Rest two day protocol gated SPECT Rest Imagin.4 mCi Tc-99m Cardiolite IV on 03/21/2023 Stress Imaging 26.0 mCi Tc-99m Cardiolite IV on 03/22/2023 Exercise Protocol: 0.4 mg Lexiscan given IV Heart Rate (bpm): Rest: 62 Max: 83 PMHR: 53 Blood Pressure: Rest: 160/96 Max: 160/96 Symptoms: chest pain similar to chief complaint Rest and peak stress ECG findings were abnormal and the exercise portion of the study was Non-diagnostic per attending physician Dr. Shine due to EKG changes. For more details please see separate cardiac stress test report. FINDINGS: QUALITY OF STUDY: Excellent. PERFUSION DEFECT: LOCATION: Basal inferior. Mid-inferior. Apical inferior. SIZE: Medium (3-4 segments). SEVERITY: Moderate. TYPE: Persistent. WALL MOTION: Mild hypokinesis: Global LV SIZE: Enlarged; EDV 125 mL. TID / TCD: None; 0.9 LVEF: Abnormal. Calculated EF 54%. SUMMARY: Myocardial perfusion imaging study has ABNORMAL findings. CONCLUSION: 1. No acute or reversible ischemia. 2. Fixed inferior wall perfusion defect versus diaphragm attenuation artifact. 3. Global mild hypokinesis. 4. Left ventricle size is at upper limits of normal, 125 mL. 5. Ejection fraction falls just below lower limits of normal; 54% on today's study. Dictated by: Primo Gale M.D. on 03/22/2023 at 11:03 Approved by: Primo Gale M.D. on 03/22/2023 at 11:30 Normal [facility] TROPONIN, HIGH SENSITIVITYon 03-21-2023 HSTROP 13.1 pg/mL Normal 4.0-76.1 [facility] Comment on above: Result Comment: CUT- OFF POINTS HAVE BEEN ESTABLISHED BASED ON THE FOURTH UNIVERSAL DEFINITIONS OF MYOCARDIAL INFARCTION. THE UPPER REFERENCE LIMIT (URL) OF TROPONIN, DEFINED THE 99TH PERCENTILE OF cTnI DISTRIBUTION IN A REFERENCE POPULATION, HAS BEEN CONFIRMED THE DECISION THRESHOLD FOR MD DIAGNOSIS. Performed By: #### H STROPN ####[facility] [id number] [place] [address]Dr. Jo De Dios BNPon 03-20-2023 Natriuretic peptide B (Bld) [Mass/Vol] 47.0 pg/mL Normal <=900.0 [facility] Comment on above: Performed By: #### B PLACEMENT COORDINATOR, CMP, CMADM #### [facility] [address] [address] [address] Jo De Dios CARDIAC YANETH ADMITon 023 CK [Catalytic activity/Vol] 149 U/L Normal 39-308 [facility] Comment on above: Performed By: #### B PLACEMENT COORDINATOR, CMP, CMADM ####[facility] [id number] [place] [address]Dr. Jo De Dios CK.MB [Mass/Vol] 1.51 ng/mL Normal <=3.60 [facility] Comment on above: Performed By: #### B PLACEMENT COORDINATOR, CMP, CMADM ####[facility] [address] [place] [address]Dr. Jo De Dios HSTROP 14.8 pg/mL Normal 4.0-76.1 [facility] Comment on above: Result Comment: CUT- OFF POINTS HAVE BEEN ESTABLISHED BASED ON THE FOURTH UNIVERSAL DEFINITIONS OF MYOCARDIAL INFARCTION. THE UPPER REFERENCE LIMIT (URL) OF TROPONIN, DEFINED THE 99TH PERCENTILE OF cTnI DISTRIBUTION IN A REFERENCE POPULATION, HAS BEEN CONFIRMED THE DECISION THRESHOLD FOR MD DIAGNOSIS. Performed By: #### B PLACEMENT COORDINATOR, CMP, CMADM ####[facility] [id number] [place] [address]Dr. Jo De Dios RAAD 55 ng/mL Normal 16-96 [facility] Comment on above: Performed By: #### B PLACEMENT COORDINATOR, CMP, CMADM ####[facility] [id number] [place] [address]Dr. Jo De Dios CBC AUTO DIFFon 03-20-2023 BASO # 0.0 103/ul Normal 0.0-0.1 [facility] Comment on above: Performed By: #### C BC #### [facility] [address] [address] [address] Jo De Dios Basophils/100 WBC (Bld) 0.7 % Normal 0.2-2.0 [facility] Comment on above: Performed By: #### C BC #### [facility] [address] [address] [address] Jo De Dios EO # 0.1 103/ul Normal 0.0-0.7 [facility] Comment on above: Performed By: #### C BC #### [facility] [address] [address] [address] Jo De Dios Eosinophils/100 WBC (Bld) 1.5 % Normal 0.9-7.0 [facility] Comment on above: Performed By: #### C BC #### [facility] [address] [address] [address] Jo De Dios Erythrocyte distribution width (RBC) [Ratio] 14.3 % Normal 11.0-15.0 [facility] Comment on above: Performed By: #### C BC #### [facility] [address] [address] [address] Jo De Dios Hematocrit (Bld) [Volume fraction] 46.1 % Normal 42.0-54.0 [facility] Comment on above: Performed By: #### C BC #### [facility] [address] [place] [address] Dr. Jo De Dios Hemoglobin (Bld) [Mass/Vol] 15.9 g/dL Normal 14.0-18.0 [facility] Comment on above: Performed By: #### C BC #### [facility] [address] [place] [address] Dr. Jo De Dios IG # 0.03 10e3/ul Normal 0.00-0.03 [facility] Comment on above: Performed By: #### C BC #### [facility] [address] [place] [address] Dr. Jo De Dios IG % 0.5 % Normal 0.0-0.5 [facility] Comment on above: Performed By: #### C BC #### [facility] [address] [place] [address] Dr. Jo De Dios LYMPH # 0.8 103/ul Critically low 1.2-3.8 [facility] Comment on above: Performed By: #### C BC #### [facility] [address] [place] [address] Dr. Jo De Dios Lymphocytes/100 WBC (Bld) 12.6 % Critically low 20.5-60.0 [facility] Comment on above: Performed By: #### C BC #### [facility] [address] [place] [address] Dr. Jo De Dios MANUAL DIFF REQ NO Normal [facility] Comment on above: Performed By: #### C BC #### [facility] [address] [place] [address] Dr. Jo De Dios MCH (RBC) [Entitic mass] 30.1 pg Normal 25.9-34.0 [facility] Comment on above: Performed By: #### C BC #### [facility] [address] [place] [address] Dr. Jo De Dios MCHC (RBC) [Mass/Vol] 34.5 g/dL Normal 29.9-35.2 [facility] Comment on above: Performed By: #### C BC #### [facility] [address] [place] [address] Dr. Jo De Dios MCV (RBC) [Entitic vol] 87.1 fL Normal 80.0-94.0 [facility] Comment on above: Performed By: #### C BC #### [facility] [address] [place] [address] Dr. Jo De Dios MONO # 0.8 103/ul Normal 0.3-0.8 [facility] Comment on above: Performed By: #### C BC #### [facility] [address] [place] [address] Dr. Jo De Dios Monocytes/100 WBC (Bld) 13.7 % Critically high 1.7-12.0 [facility] Comment on above: Performed By: #### C BC #### [facility] [address] [place] [address] Dr. Jo De Dios NEUT # 4.4 103/ul Normal 1.4-6.5 [facility] Comment on above: Performed By: #### C BC #### [facility] [address] [place] [address] Dr. Jo De Dios Neutrophils/100 WBC (Bld) 71.0 % Normal 43.0-75.0 [facility] Comment on above: Performed By: #### C BC #### [facility] [address] [place] [address] Dr. Jo De Dios Platelet mean volume (Bld) [Entitic vol] 9.8 fL Normal 9.5-13.5 [facility] Comment on above: Performed By: #### C BC #### [facility] [address] [place] [address] Dr. Jo De Dios PLT 179 103/ul Normal 150-450 [facility] Comment on above: Performed By: #### C BC #### [facility] [address] [place] [address] Dr. Jo De Dios RBC 5.29 106/ul Normal 4.70-6.10 [facility] Comment on above: Performed By: #### C BC #### [facility] [address] [place] [address] Dr. Jo De Dios WBC 6.1 103/ul Normal 4.0-11.0 [facility] Comment on above: Performed By: #### C BC #### [facility] [address] [place], [place] [address] Dr. Jo De Dios CTA CHEST WO W CONon 023 CTA CHEST WO W CON EXAM: CTA CHEST WO W CON COMPARISON: None available. CLINICAL INDICATION: SHORTNESS OF BREATH TECHNIQUE: CT angiography of the pulmonary arteries following the administration of 100 mL Omnipaque 300 intravenous contrast. MIP (maximum intensity projection) images or 3D post processing was performed. Dose reduction techniques were achieved by using automated exposure control and/or adjustment of mA and/or kV according to patient size and/or use of iterative reconstruction technique. FINDINGS: LOWER NECK AND CHEST WALL: Unremarkable. MEDIASTINUM AND PAULINO: No mediastinal or hilar pathologic lymphadenopathy by CT size criteria. Small hiatal hernia. CARDIOVASCULAR: No evidence of pulmonary embolism. No pathologic dilatation of the main pulmonary artery. Normal heart size. No thoracic aortic aneurysm or dissection. LUNGS: Dependent atelectasis in bilateral lower lobes. No focal consolidation. No suspicious pulmonary nodules. Mild diffuse peribronchial thickening. AIRWAYS: The central airways are patent. PLEURA: No pleural effusion or pneumothorax is seen. UPPER ABDOMEN: No acute abnormality in the visualized upper abdomen. BONES: No suspicious or aggressive bone lesions are seen. No acute fractures are seen. IMPRESSION: No evidence of pulmonary embolism or acute cardiopulmonary abnormality. Mild diffuse peribronchial thickening, may suggest acute bronchitis. Small hiatal hernia. Electronically authenticated by: ROBERTA WOOD Date: 2023-03-20 16:10 Normal [facility] D-DIMERon 03-20-2023 D-DIMER 0.60 mg/L FEU Critically high <=0.59 [facility] Comment on above: Performed By: #### D DIM ####[facility] [id number] [place], [place] [address]TcDr. Jo De Dios D-DIMER COMMENTS SEE BELOW Normal [facility] Comment on above: Result Comment: Incr eases in D-Dimer concentration observed with thromboembolic events can be variable due to localization, size, and age of the thrombus. Therefore, a thromboembolic event cannot be diagnosed with certainty on the basis of the reference range. D-Dimers may also be elevated for a variety of disorders including: advanced age, , coronary disease, cancer, liver disease, infection, inflammation, hematoma, DIC, trauma, post-surgery, diabetes, thrombolytic or anticoagulant therapy, stress, and generalized hospitalization. Performed By: #### D DIM ####[facility] [id number] [place] [address]Dr. Jo De Dios ER URINE PROFILEon 3 Bilirubin Ql (U) Negative Normal NEGATIVE [facility] Comment on above: Performed By: #### E RUR #### [facility] [address] [place] [address] Dr. Jo De Dios Clarity (U) CLEAR Normal CLEAR [facility] Comment on above: Performed By: #### E RUR #### [facility] [address] [place] [address] Dr. Jo De Dios Color (U) LT. YELLOW Normal YELLOW [facility] Comment on above: Performed By: #### E RUR #### [facility] [address] [place] [address] Dr. Jo De Dios ERUAHD A micrscopic examina tion will be performed if indicated. Normal [facility] Comment on above: Performed By: #### E RUR #### [facility] [address] [place] [address] Dr. Jo De Dios Glucose Ql (U) Negative Normal NEGATIVE [facility] Comment on above: Performed By: #### E RUR #### [facility] [address] [place] [address] Dr. Jo De Dios Hemoglobin Ql (U) Negative Normal NEGATIVE [facility] Comment on above: Performed By: #### E RUR #### [facility] [address] [place] [address] Dr. Jo De Dios Ketones Ql (U) Negative Normal NEGATIVE [facility] Comment on above: Performed By: #### E RUR #### [facility] [address] [place] [address] Dr. Jo De Dios LEUKOCYTES Negative Normal NEGATIVE [facility] Comment on above: Performed By: #### E RUR #### [facility] [address] [place] [address] Dr. Jo De iDos Nitrite Ql (U) Negative Normal NEGATIVE [facility] Comment on above: Performed By: #### E RUR #### [facility] [address] [place] [address] Dr. Jo De Dios pH (U) 5.0 [pH] Normal 5-9 [facility] Comment on above: Performed By: #### E RUR #### [facility] [address] [place] [address] Dr. Jo De Dios SPEC GRAVITY 1.020 Normal 1.005-<=1. 025 [facility] Comment on above: Performed By: #### E RUR #### [facility] [address] [place] [address] Dr. Jo De Dios UA PROTEIN Negative Normal NEGATIVE/ TRACE [facility] Comment on above: Performed By: #### E RUR #### [facility] [address] [place] [address] Dr. Jo De Dios UR MICRO IND NOT INDICATED Normal [facility] Comment on above: Performed By: #### E RUR #### [facility] [address] [place] [address] Dr. Jo De Dios Urobilinogen Qn (U) 0.2 {Carrie'U}/dL Normal 0.2 - 1. 0 [facility] Comment on above: Performed By: #### E RUR #### [facility] [address] [place] [address] Dr. Jo De Dios GLYCOHEMOGLOBIN A1Con 2022 ADA RECOMMENDATION SEE BELOW Normal [facility] Comment on above: Result Comment: ADA RECOMMENDED LIMIT 4.0 - 6.0 ADA THERAPEUTIC TARGET < 7.0 ACTION SUGGESTED > 7.0 Performed By: #### A 1C #### [facility] [address] [place] [address] Dr. Jo De Dios Glucose [Mass/Vol] 103 mg/dL Normal [facility] Comment on above: Performed By: #### A 1C #### [facility] [address] [place] [address] Dr. Jo De Dios HbA1c (Bld) [Mass fraction] 5.2 % Normal 4.5-6.2 [facility] Comment on above: Performed By: #### A 1C #### [facility] [address] [address] [address] Jo De Dios LIPID PROFILEon 03-20-2023 CHOL-HDL RATIO NORM SEE BELOW Normal [facility] Comment on above: Result Comment: 3.3 - 4.4 LOW RISK 4.4 - 7.1 AVERAGE RISK 7.1 - 11.0 MODERATE RISK >11.0 HIGH RISK Performed By: #### L IPID #### [facility] [address] [place], [place] [address] Dr. Jo De Dios Cholesterol [Mass/Vol] 132 mg/dL Normal <=200 Th [facility] Comment on above: Performed By: #### L IPID #### [facility] [address] [place] [address] Dr. Jo De Dios Cholesterol in HDL [Mass/Vol] 46 mg/dL Normal 40-60 [facility] Comment on above: Performed By: #### L IPID #### [facility] [address] [address] [address] Jo De Dios Cholesterol in LDL [Mass/Vol] 69.4 mg/dL Normal [facility] Comment on above: Performed By: #### L IPID #### [facility] [id number] Jo De Dios Cholesterol.total/Chol esterol in HDL [Mass ratio] 2.9 {ratio} Normal [facility] Comment on above: Performed By: #### L IPID #### [facility] [id number] Jo De Dios HDL NORMAL > or = 60 mg/dl - LO W CARDIOVASCULAR RISK <40 mg/dl - HIGH CARDIOVASCULAR RISK Normal [facility] Comment on above: Performed By: #### L IPID #### [facility] [address] [place], [place] [id number] Dr. Jo De Dios LDL CALC NORMAL SEE BELOW Normal [facility] Comment on above: Result Comment: <100 mg/dl OPTIMAL 100 - 129 mg/dl NEAR OR ABOVE OPTIMAL 130 - 159 mg/dl BORDERLINE HIGH 160 - 189 mg/dl HIGH >190 mg/dl VERY HIGH Performed By: #### L IPID #### [facility] [address] [place] [address] Dr. Jo De Dios Triglyceride [Mass/Vol] 83 mg/dL Normal <=150 [facility] Comment on above: Performed By: #### L IPID #### [facility] [address] [place] [address] Dr. Jo De Dios VLDL CALC 16.6 mg/dL Normal [facility] Comment on above: Performed By: #### L IPID #### [facility] [address] [place] [address] Dr. Jo De Dios PROF 14(COMP METB)on 023 Albumin [Mass/Vol] 3.7 g/dL Normal 3.4-5.0 [facility] Comment on above: Performed By: #### B PLACEMENT COORDINATOR, CMP, CMADM #### [facility] [address] [place] [address] Dr. Jo De Dios Albumin/Globulin [Mass ratio] 1.1 {ratio} Normal [facility] Comment on above: Performed By: #### B PLACEMENT COORDINATOR, CMP, CMADM #### [facility] [address] [place] [address] Dr. Jo De Dios ALP [Catalytic activity/Vol] 96 U/L Normal 46-116 [facility] Comment on above: Performed By: #### B PLACEMENT COORDINATOR, CMP, CMADM #### [facility] [address] [place] [address] Dr. Jo De Dios ALT [Catalytic activity/Vol] 41 U/L Normal 16-63 [facility] Comment on above: Performed By: #### B PLACEMENT COORDINATOR, CMP, CMADM #### [facility] [address] [place] [address] Dr. Jo De Dios Anion gap [Moles/Vol] 11.2 mmol/L Normal [facility] Comment on above: Performed By: #### B PLACEMENT COORDINATOR, CMP, CMADM #### [facility] [address] [place] [address] Dr. Jo De Dios AST [Catalytic activity/Vol] 25 U/L Normal 15-37 [facility] Comment on above: Performed By: #### B PLACEMENT COORDINATOR, CMP, CMADM #### [facility] [address] [place] [address] Dr. Jo De Dios Bilirubin [Mass/Vol] 0.8 mg/dL Normal 0.2-1.0 [facility] Comment on above: Performed By: #### B PLACEMENT COORDINATOR, CMP, CMADM #### [facility] [address] [place] [address] Dr. Jo De Dios Calcium [Mass/Vol] 8.8 mg/dL Normal 8.5-10.1 [facility] Comment on above: Performed By: #### B PLACEMENT COORDINATOR, CMP, CMADM #### [facility] [address] [place] [address] Dr. Jo De Dios Chloride [Moles/Vol] 109 mmol/L Critically high 98-107 [facility] Comment on above: Performed By: #### B PLACEMENT COORDINATOR, CMP, CMADM #### [facility] [address] [place] [address] Dr. Jo De Dios CO2 [Moles/Vol] 23.4 mmol/L Normal 21.0-32.0 [facility] Comment on above: Performed By: #### B PLACEMENT COORDINATOR, CMP, CMADM #### [facility] [address] [place] [address] Dr. Jo De Dios Creatinine [Mass/Vol] 0.84 mg/dL Normal 0.70-1.30 [facility] Comment on above: Performed By: #### B PLACEMENT COORDINATOR, CMP, CMADM #### [facility] [address] [place] [address] Dr. Jo De Dios EGFR-AF EQUATORIAL GUINEAN >60 Normal >=60 [facility] Comment on above: Performed By: #### B PLACEMENT COORDINATOR, CMP, CMADM #### [facility] [address] [place] [address] Dr. Jo De Dios EGFR-NON AF EQUATORIAL GUINEAN >60 Normal >=60 [facility] Comment on above: Performed By: #### B PLACEMENT COORDINATOR, CMP, CMADM #### [facility] [address] [address] [address] Jo De Dios Globulin (S) [Mass/Vol] 3.3 g/dL Normal [facility] Comment on above: Performed By: #### B PLACEMENT COORDINATOR, CMP, CMADM #### [facility] [address] [place] [address] Dr. Jo De Dios Glucose [Mass/Vol] 96 mg/dL Normal 74-106 [facility] Comment on above: Performed By: #### B PLACEMENT COORDINATOR, CMP, CMADM #### [facility] Laboratory [address] [place] [address] Dr. Jo De Dios Potassium [Moles/Vol] 3.6 mmol/L Normal 3.5-5.1 [facility] Comment on above: Performed By: #### B PLACEMENT COORDINATOR, CMP, CMADM #### [facility] Laboratory [address] [place] [address] Dr. Jo De Dios Protein [Mass/Vol] 7.0 g/dL Normal 6.4-8.2 [facility] Comment on above: Performed By: #### B PLACEMENT COORDINATOR, CMP, CMADM #### [facility] Laboratory [address] [place] [address] Dr. Jo DeD ios Sodium [Moles/Vol] 140 mmol/L Normal 136-145 [facility] Comment on above: Performed By: #### B PLACEMENT COORDINATOR, CMP, CMADM #### [facility] Laboratory [address] [place] [address] Dr. Jo De Dios Urea nitrogen [Mass/Vol] 21.0 mg/dL Critically high 7.0-18.0 [facility] Comment on above: Performed By: #### B PLACEMENT COORDINATOR, CMP, CMADM #### [facility] Laboratory [address] [place] [address] Dr. Jo De Dios Urea nitrogen/Creatinine [Mass ratio] 25.0 mg/mg Normal [facility] Comment on above: Performed By: #### B PLACEMENT COORDINATOR, CMP, CMADM #### [facility] [address] [place] [address] Dr. Jo De Dios PROTIMEon 03-20-2023 INR Coag (PPP) [Relative time] 0.96 {INR} Normal [facility] Comment on above: Performed By: #### P T, PTT ####[facility] [address] [place] [address]Dr. Jo De Dios INR GUIDELINES SEE BELOW Normal [facility] Comment on above: Result Comment: BETSEY RED INR: 2.0 - 3.0 CONDITIONS NOT LISTED BELOW 2.5 - 3.5 FOR PROSTHETIC HEART VALVE REPLACEMENT 2.5 - 3.5 RECURRENT THROMBOSIS Performed By: #### P T, PTT ####[facility] [address] [place] [address]Dr. Jo De Dios PT Coag (PPP) [Time] 10.2 s Normal 9.0-11.6 [facility] Comment on above: Performed By: #### P T, PTT ####[facility] [address] [place] [address]Dr. Jo De Dios PTTon 03-20-2023 aPTT Coag (Bld) [Time] 30.0 s Normal 22.3-36.2 [facility] Comment on above: Performed By: #### P T, PTT ####[facility] [address] [place] [address]Dr. Jo De Dios TROPONIN, HIGH SENSITIVITYon 03-20-2023 HSTROP 30.2 pg/mL Normal 4.0-76.1 [facility] Comment on above: Result Comment: CUT- OFF POINTS HAVE BEEN ESTABLISHED BASED ON THE FOURTH UNIVERSAL DEFINITIONS OF MYOCARDIAL INFARCTION. THE UPPER REFERENCE LIMIT (URL) OF TROPONIN, DEFINED THE 99TH PERCENTILE OF cTnI DISTRIBUTION IN A REFERENCE POPULATION, HAS BEEN CONFIRMED THE DECISION THRESHOLD FOR MD DIAGNOSIS. Performed By: #### H STROPN ####[facility] [address] [place] [address]Dr. Jo De Dios XR CHEST 1 Von 03-20-2023 XR CHEST 1 V EXAM: XR CHEST 1 V HISTORY: Chest pain; technologist notes state chest pressure with nausea. COMPARISON: None. TECHNIQUE: AP erect portable chest radiograph performed. FINDINGS: The trachea is normal. There is mild prominence/magnification of the cardiac silhouette. The mediastinal silhouette and hilar shadows are unremarkable. There is epicardial fat at the right cardiophrenic angle. The lung kirby are clear. There is no pneumothorax or acute osseous abnormality. IMPRESSION: There is no acute cardiopulmonary process. Electronically authenticated by: GAVIN MINER Date: 2023-03-20 12:56 Normal [facility] Alanine aminotransferase [En zymatic activity/volume] in Serum or PlasmaOrdered By: Christine Sanchez on 01-31-2023 ALT [Catalytic activity/Vol] 34 U/L 7-52 [facility] Albumin [Mass/volume] in Ser um or Plasma by Bromocresol green (BCG) dye binding methoOrdered By: Christine Sanchez on 01-31-2023 Albumin BCG dye [Mass/Vol] 4.3 g/dL 3.5-5.7 [facility] Alkaline phosphatase [Enzyma tic activity/volume] in Serum or PlasmaOrdered By: Christine Sanchez on 01-31-2023 ALP [Catalytic activity/Vol] 70 U/L 34-104 [facility] Aspartate aminotransferase [ Enzymatic activity/volume] in Serum or PlasmaOrdered By: Christine Sanchez on 01-31-2023 AST [Catalytic activity/Vol] 23 U/L 13-39 [facility] Automated erythrocytes count in urine sediment (number/area)Ordered By: Christine Sanchez on 01-31-2023 RBC Auto (Urine sed) [#/Area] 1-2 [HPF] 0-4 [facility] Automated leukocytes count i n urine sediment (number/area)Ordered By: Christine Sanchez on 01-31-2023 WBC Auto (Urine sed) [#/Area] 1-2 [HPF] 0-4 [facility] Basophils Auto (Bld) [#/Vol] Ordered By: Christine Sanchez on 01-31-2023 Basophils (Bld) [#/Vol] 0.0 10*3/uL 0.0-0.2 [facility] Basophils/100 WBC Auto (Bld) Ordered By: Christine Sanchez on 01-31-2023 Basophils/100 WBC (Bld) 0.5 % . [facility] Bilirubin Test strip Ql (U)O rdered By: Christine Sanchez on 01-31-2023 Bilirubin Ql (U) Negative Negative [facility] Bilirubin.total [Mass/volume ] in Serum or PlasmaOrdered By: Christine Sanchez on 01-31-2023 Bilirubin [Mass/Vol] 0.8 mg/dL 0.3-1.0 [facility] Calcium [Mass/volume] in Ser um or PlasmaOrdered By: Christine Sanchez on 01-31-2023 Calcium [Mass/Vol] 8.9 mg/dL 8.6-10.3 [facility] Carbon dioxide, total [Moles /volume] in Serum or PlasmaOrdered By: Christine Sanchez on 01-31-2023 CO2 [Moles/Vol] 24.6 mmol/L 21.0-31.0 [facility] Chloride [Moles/volume] in S ace or PlasmaOrdered By: Christine Sanchez on 01-31-2023 Chloride [Moles/Vol] 108 mmol/L 98-107 [facility] Color Auto (U)Ordered By: Marianna Arellano on 01-31-2023 Color (U) Dark yellow Yellow [facility] Complement C3on 01-31-2023 Complement C3 124 mg/dL Normal 82-167 [facility] Comment on above: Result Comment: Perf ormed at: - [facility] [address] [id number] Maintenance Machinist: Richy Ardon PhD, Phone: [phone] Performed By: #### O XAL 24HRU, U24 CA, MAG 24HRU, CITRIC UR, PHOS 24HRU, URIC 24HRU #### [facility] , #### COL T V, U24 NA, CREA24 #### [address] Complement C4on 01-31-2023 Complement C4 16 mg/dL Normal 12-38 [facility] Comment on above: Result Comment: PERF ORMED BY: [place] [address] PATHOLOGIST YEAST CAKE CUTTER OLMAN ALBARRAN M.D. Performed By: #### O XAL 24HRU, U24 CA, MAG 24HRU, CITRIC UR, PHOS 24HRU, URIC 24HRU #### [facility] , #### COL T V, U24 NA, CREA24 #### [address] Complement Total (CH50)on Complement Total (CH50) >60 Normal >41 [facility] Comment on above: Result Comment: Age Male Female 1 - 30 days Not Estab. Not Estab. 31 days - 6 months >32 >20 7 months - 17 years >39 >39 >17 years >41 >41 NOTE: The adult ( >17 years ) reference interval range is used to flag abnormals on this report. If the patient is 17 years old or younger, use the table above to determine out of range values. Performed at: [facility] [address] [id number] Maintenance Machinist: Richy Ardon PhD, Phone: [phone] PERFORMED BY: [place] [address] PATHOLOGIST YEAST CAKE CUTTER OLMAN ALBARRAN M.D. Performed By: #### O XAL 24HRU, U24 CA, MAG 24HRU, CITRIC UR, PHOS 24HRU, URIC 24HRU #### [facility] , #### COL T V, U24 NA, CREA24 #### [address] Complete Blood Count Auto Di ffon 01-31-2023 Basophils (Bld) [#/Vol] 0.0 10*3/uL Normal 0.0-0.2 [facility] Comment on above: Performed By: #### O XAL 24HRU, U24 CA, MAG 24HRU, CITRIC UR, PHOS 24HRU, URIC 24HRU #### [facility] , #### COL T V, U24 NA, CREA24 #### [address] Basophils/100 WBC (Bld) 0.5 % Normal . [facility] Comment on above: Performed By: #### O XAL 24HRU, U24 CA, MAG 24HRU, CITRIC UR, PHOS 24HRU, URIC 24HRU #### [facility] , #### COL T V, U24 NA, CREA24 #### [address] Eosinophils (Bld) [#/Vol] 0.1 10*3/uL Normal 0.0-0.45 [facility] Comment on above: Performed By: #### O XAL 24HRU, U24 CA, MAG 24HRU, CITRIC UR, PHOS 24HRU, URIC 24HRU #### [facility] , #### COL T V, U24 NA, CREA24 #### [address] Eosinophils/100 WBC (Bld) 1.2 % Normal . [facility] Comment on above: Performed By: #### O XAL 24HRU, U24 CA, MAG 24HRU, CITRIC UR, PHOS 24HRU, URIC 24HRU #### [facility] , #### COL T V, U24 NA, CREA24 #### [address] Erythrocyte distribution width (RBC) [Ratio] 15.2 % High 12.0-14.8 [facility] Comment on above: Performed By: #### O XAL 24HRU, U24 CA, MAG 24HRU, CITRIC UR, PHOS 24HRU, URIC 24HRU #### [facility] , #### COL T V, U24 NA, CREA24 #### [facility] [address] [place] [address] Hematocrit (Bld) [Volume fraction] 45.2 % Normal 38.8-50.0 [facility] Comment on above: Performed By: #### O XAL 24HRU, U24 CA, MAG 24HRU, CITRIC UR, PHOS 24HRU, URIC 24HRU #### [facility] , #### COL T V, U24 NA, CREA24 #### [address] Hemoglobin (Bld) [Mass/Vol] 15.4 g/dL Normal 13.0-17.0 [facility] Comment on above: Performed By: #### O XAL 24HRU, U24 CA, MAG 24HRU, CITRIC UR, PHOS 24HRU, URIC 24HRU #### [facility] , #### COL T V, U24 NA, CREA24 #### [address] Lymphocytes (Bld) [#/Vol] 0.7 10*3/uL Low 1.00-4.8 [facility] Comment on above: Performed By: #### O XAL 24HRU, U24 CA, MAG 24HRU, CITRIC UR, PHOS 24HRU, URIC 24HRU #### [facility] , #### COL T V, U24 NA, CREA24 #### [address] Lymphocytes/100 WBC (Bld) 15.3 % Normal . [facility] Comment on above: Performed By: #### O XAL 24HRU, U24 CA, MAG 24HRU, CITRIC UR, PHOS 24HRU, URIC 24HRU #### [facility] , #### COL T V, U24 NA, CREA24 #### [address] MCH (RBC) [Entitic mass] 30.4 pg Normal 27.5-35.2 [facility] Comment on above: Performed By: #### O XAL 24HRU, U24 CA, MAG 24HRU, CITRIC UR, PHOS 24HRU, URIC 24HRU #### [facility] , #### COL T V, U24 NA, CREA24 #### [address] MCV (RBC) [Entitic vol] 89.0 fL Normal 83.5-101 [facility] Comment on above: Performed By: #### O XAL 24HRU, U24 CA, MAG 24HRU, CITRIC UR, PHOS 24HRU, URIC 24HRU #### [facility] , #### COL T V, U24 NA, CREA24 #### [address] Mean Corpuscular HGB Conc 34.1 g/dL Normal 32.5-35.6 [facility] Comment on above: Performed By: #### O XAL 24HRU, U24 CA, MAG 24HRU, CITRIC UR, PHOS 24HRU, URIC 24HRU #### [facility] , #### COL T V, U24 NA, CREA24 #### [address] Monocytes (Bld) [#/Vol] 0.4 10*3/uL Normal 0.0-0.8 [facility] Comment on above: Performed By: #### O XAL 24HRU, U24 CA, MAG 24HRU, CITRIC UR, PHOS 24HRU, URIC 24HRU #### [facility] , #### COL T V, U24 NA, CREA24 #### [address] Monocytes/100 WBC (Bld) 9.0 % Normal . [facility] Comment on above: Performed By: #### O XAL 24HRU, U24 CA, MAG 24HRU, CITRIC UR, PHOS 24HRU, URIC 24HRU #### [facility] , #### COL T V, U24 NA, CREA24 #### [address] Neutrophils (Bld) [#/Vol] 3.3 10*3/uL Normal 1.8-7.7 [facility] Comment on above: Performed By: #### O XAL 24HRU, U24 CA, MAG 24HRU, CITRIC UR, PHOS 24HRU, URIC 24HRU #### [facility] , #### COL T V, U24 NA, CREA24 #### [address] Neutrophils/100 WBC (Bld) 74.0 % Normal . [facility] Comment on above: Performed By: #### O XAL 24HRU, U24 CA, MAG 24HRU, CITRIC UR, PHOS 24HRU, URIC 24HRU #### [facility] , #### COL T V, U24 NA, CREA24 #### [address] NRBC% 0.3 /100{WBC} Normal 0-0.5 [facility] Comment on above: Performed By: #### O XAL 24HRU, U24 CA, MAG 24HRU, CITRIC UR, PHOS 24HRU, URIC 24HRU #### [facility] , #### COL T V, U24 NA, CREA24 #### [address] Platelet mean volume (Bld) [Entitic vol] 8.5 fL Normal 6.6-10.1 [facility] Comment on above: Performed By: #### O XAL 24HRU, U24 CA, MAG 24HRU, CITRIC UR, PHOS 24HRU, URIC 24HRU #### [facility] , #### COL T V, U24 NA, CREA24 #### [address] Platelets (Bld) [#/Vol] 163 10*3/uL Normal 150-450 [facility] Comment on above: Performed By: #### O XAL 24HRU, U24 CA, MAG 24HRU, CITRIC UR, PHOS 24HRU, URIC 24HRU #### [facility] , #### COL T V, U24 NA, CREA24 #### [address] RBC (Bld) [#/Vol] 5.08 10*6/uL Normal 3.90-5.60 [facility] Comment on above: Performed By: #### O XAL 24HRU, U24 CA, MAG 24HRU, CITRIC UR, PHOS 24HRU, URIC 24HRU #### [facility] , #### COL T V, U24 NA, CREA24 #### [address] WBC (Bld) [#/Vol] 4.5 10*3/uL Normal 4.1-10.5 [facility] Comment on above: Performed By: #### O XAL 24HRU, U24 CA, MAG 24HRU, CITRIC UR, PHOS 24HRU, URIC 24HRU #### [facility] , #### COL T V, U24 NA, CREA24 #### [address] Comprehensive Metabolic Pane vivek 01-31-2023 Albumin [Mass/Vol] 4.3 g/dL Normal 3.5-5.7 [facility] Comment on above: Performed By: #### O XAL 24HRU, U24 CA, MAG 24HRU, CITRIC UR, PHOS 24HRU, URIC 24HRU #### [facility] , #### COL T V, U24 NA, CREA24 #### [address] Albumin/Globulin [Mass ratio] 2.3 {ratio} Normal [facility] Comment on above: Performed By: #### O XAL 24HRU, U24 CA, MAG 24HRU, CITRIC UR, PHOS 24HRU, URIC 24HRU #### [facility] , #### COL T V, U24 NA, CREA24 #### [facility] [address] [place] [address] ALP [Catalytic activity/Vol] 70 U/L Normal 34-104 [facility] Comment on above: Result Comment: PERF ORMED BY: [place] [address] PATHOLOGIST YEAST CAKE CUTTER OLMAN ALBARRAN M.D. Performed By: #### O XAL 24HRU, U24 CA, MAG 24HRU, CITRIC UR, PHOS 24HRU, URIC 24HRU #### [facility] , #### COL T V, U24 NA, CREA24 #### [address] ALT [Catalytic activity/Vol] 34 U/L Normal 7-52 [facility] Comment on above: Performed By: #### O XAL 24HRU, U24 CA, MAG 24HRU, CITRIC UR, PHOS 24HRU, URIC 24HRU #### [facility] , #### COL T V, U24 NA, CREA24 #### [address] Anion gap [Moles/Vol] 11.1 mmol/L Normal 6.0-15.0 [facility] Comment on above: Performed By: #### O XAL 24HRU, U24 CA, MAG 24HRU, CITRIC UR, PHOS 24HRU, URIC 24HRU #### [facility] , #### COL T V, U24 NA, CREA24 #### [address] AST [Catalytic activity/Vol] 23 U/L Normal 13-39 [facility] Comment on above: Performed By: #### O XAL 24HRU, U24 CA, MAG 24HRU, CITRIC UR, PHOS 24HRU, URIC 24HRU #### [facility] , #### COL T V, U24 NA, CREA24 #### [address] Bilirubin [Mass/Vol] 0.8 mg/dL Normal 0.3-1.0 [facility] Comment on above: Performed By: #### O XAL 24HRU, U24 CA, MAG 24HRU, CITRIC UR, PHOS 24HRU, URIC 24HRU #### [facility] , #### COL T V, U24 NA, CREA24 #### [facility] [address] [place] [address] Calcium [Mass/Vol] 8.9 mg/dL Normal 8.6-10.3 [facility] Comment on above: Performed By: #### O XAL 24HRU, U24 CA, MAG 24HRU, CITRIC UR, PHOS 24HRU, URIC 24HRU #### [facility] , #### COL T V, U24 NA, CREA24 #### [facility] [address] [place] [address] Chloride [Moles/Vol] 108 mmol/L High 98-107 [facility] Comment on above: Performed By: #### O XAL 24HRU, U24 CA, MAG 24HRU, CITRIC UR, PHOS 24HRU, URIC 24HRU #### [facility] , #### COL T V, U24 NA, CREA24 #### [address] CO2 [Moles/Vol] 24.6 mmol/L Normal 21.0-31.0 [facility] Comment on above: Performed By: #### O XAL 24HRU, U24 CA, MAG 24HRU, CITRIC UR, PHOS 24HRU, URIC 24HRU #### [facility] , #### COL T V, U24 NA, CREA24 #### [facility] [address] [place] [address] Creatinine [Mass/Vol] 0.90 mg/dL Normal 0.70-1.30 [facility] Comment on above: Performed By: #### O XAL 24HRU, U24 CA, MAG 24HRU, CITRIC UR, PHOS 24HRU, URIC 24HRU #### [facility] , #### COL T V, U24 NA, CREA24 #### [facility] [address] [place] [address] GFR/1.73 sq M.predicted MDRD (S/P/Bld) [Vol rate/Area] mL/min/{1.73_m2} [facility] Comment on above: Performed By: #### O XAL 24HRU, U24 CA, MAG 24HRU, CITRIC UR, PHOS 24HRU, URIC 24HRU #### [facility] , #### COL T V, U24 NA, CREA24 #### [address] Globulin (S) [Mass/Vol] 1.9 g/dL [facility] Comment on above: Performed By: #### O XAL 24HRU, U24 CA, MAG 24HRU, CITRIC UR, PHOS 24HRU, URIC 24HRU #### [facility] , #### COL T V, U24 NA, CREA24 #### [address] Glucose [Mass/Vol] 131 mg/dL High 74-109 [facility] Comment on above: Result Comment: [facility] Glucose Reference Range is dependent on time and content of last meal. Glucose of more than 200 mg/dL in a nonstressed, ambulatory subject supports the diagnosis of Diabetes Mellitus. ADA recommended reference range Performed By: #### O XAL 24HRU, U24 CA, MAG 24HRU, CITRIC UR, PHOS 24HRU, URIC 24HRU #### [facility] , #### COL T V, U24 NA, CREA24 #### [address] Potassium [Moles/Vol] 3.7 mmol/L Normal 3.5-5.1 [facility] Comment on above: Performed By: #### O XAL 24HRU, U24 CA, MAG 24HRU, CITRIC UR, PHOS 24HRU, URIC 24HRU #### [facility] , #### COL T V, U24 NA, CREA24 #### [address] Protein [Mass/Vol] 6.2 g/dL Low 6.4-8.9 [facility] Comment on above: Performed By: #### O XAL 24HRU, U24 CA, MAG 24HRU, CITRIC UR, PHOS 24HRU, URIC 24HRU #### [facility] , #### COL T V, U24 NA, CREA24 #### [facility] [address] [place] [address] Sodium [Moles/Vol] 140 mmol/L Normal 136-145 [facility] Comment on above: Performed By: #### O XAL 24HRU, U24 CA, MAG 24HRU, CITRIC UR, PHOS 24HRU, URIC 24HRU #### [facility] , #### COL T V, U24 NA, CREA24 #### [facility] [address] [place] [address] Urea nitrogen [Mass/Vol] 23 mg/dL Normal 7-25 [facility] Comment on above: Performed By: #### O XAL 24HRU, U24 CA, MAG 24HRU, CITRIC UR, PHOS 24HRU, URIC 24HRU #### [facility] , #### COL T V, U24 NA, CREA24 #### [facility] [address] [place] [address] Creatinine [Mass/volume] in Serum or PlasmaOrdered By: Christine Sanchez on 01-31-2023 Creatinine [Mass/Vol] 0.90 mg/dL 0.70-1.30 [facility] Dipstick and Microscopicon 0 01-31-2023 Appearance (U) Turbid Critically abnormal Clear [facility] Comment on above: Order Comment: URINE VOLUME (MILLILTERS): [id number] Performed By: #### O XAL 24HRU, U24 CA, MAG 24HRU, CITRIC UR, PHOS 24HRU, URIC 24HRU #### [facility] , #### COL T V, U24 NA, CREA24 #### [facility] [address] [place] [address] [place] Bacteria,Urine None Seen Normal None Seen [facility] Comment on above: Order Comment: URINE VOLUME (MILLILTERS): [id number] Performed By: #### O XAL 24HRU, U24 CA, MAG 24HRU, CITRIC UR, PHOS 24HRU, URIC 24HRU #### [facility] , #### COL T V, U24 NA, CREA24 #### [facility] [address] [place] [address] Bilirubin,Urine Negative Normal Negative [facility] Comment on above: Order Comment: URINE VOLUME (MILLILTERS): [id number] Performed By: #### O XAL 24HRU, U24 CA, MAG 24HRU, CITRIC UR, PHOS 24HRU, URIC 24HRU #### [facility] , #### COL T V, U24 NA, CREA24 #### [facility] [address] [place] [address] Color (U) Dark Yellow Critically abnormal Yellow [facility] Comment on above: Order Comment: URINE VOLUME (MILLILTERS): [id number] Performed By: #### O XAL 24HRU, U24 CA, MAG 24HRU, CITRIC UR, PHOS 24HRU, URIC 24HRU #### [facility] , #### COL T V, U24 NA, CREA24 #### [facility] [address] [place] [address] Glucose Ql (U) Normal Normal Normal [facility] Comment on above: Order Comment: URINE VOLUME (MILLILTERS): [id number] Performed By: #### O XAL 24HRU, U24 CA, MAG 24HRU, CITRIC UR, PHOS 24HRU, URIC 24HRU #### [facility] , #### COL T V, U24 NA, CREA24 #### [facility] [address] [place] [address] Hyaline Casts,Urine 0-8 Normal 0-8 [facility] Comment on above: Order Comment: URINE VOLUME (MILLILTERS): [id number] Result Comment: PERF ORMED BY: [place] [address] PATHOLOGIST YEAST CAKE CUTTER OLMAN ALBARRAN M.D. Performed By: #### O XAL 24HRU, U24 CA, MAG 24HRU, CITRIC UR, PHOS 24HRU, URIC 24HRU #### [facility] , #### COL T V, U24 NA, CREA24 #### [address] Ketones Ql (U) Trace High Negative [facility] Comment on above: Order Comment: URINE VOLUME (MILLILTERS): [id number] Performed By: #### O XAL 24HRU, U24 CA, MAG 24HRU, CITRIC UR, PHOS 24HRU, URIC 24HRU #### [facility] , #### COL T V, U24 NA, CREA24 #### [address] Leukocyte esterase Test strip Ql (U) 1+ High Negative [facility] Comment on above: Order Comment: URINE VOLUME (MILLILTERS): [id number] Performed By: #### O XAL 24HRU, U24 CA, MAG 24HRU, CITRIC UR, PHOS 24HRU, URIC 24HRU #### [facility] , #### COL T V, U24 NA, CREA24 #### [address] Nitrite,Urine Negative Normal Negative [facility] Comment on above: Order Comment: URINE VOLUME (MILLILTERS): [id number] Performed By: #### O XAL 24HRU, U24 CA, MAG 24HRU, CITRIC UR, PHOS 24HRU, URIC 24HRU #### [facility] , #### COL T V, U24 NA, CREA24 #### [facility] [address] [place] [address] Occult Blood,Urine Negative Normal Negative [facility] Comment on above: Order Comment: URINE VOLUME (MILLILTERS): 2960 Performed By: #### O XAL 24HRU, U24 CA, MAG 24HRU, CITRIC UR, PHOS 24HRU, URIC 24HRU #### [facility] , #### COL T V, U24 NA, CREA24 #### [address] pH (U) 5.0 [pH] Normal 5.0-9.0 [facility] Comment on above: Order Comment: URINE VOLUME (MILLILTERS): [id number] Performed By: #### O XAL 24HRU, U24 CA, MAG 24HRU, CITRIC UR, PHOS 24HRU, URIC 24HRU #### [facility] , #### COL T V, U24 NA, CREA24 #### [address] Protein,Urine Trace High Negative [facility] Comment on above: Order Comment: URINE VOLUME (MILLILTERS): 2960 Performed By: #### O XAL 24HRU, U24 CA, MAG 24HRU, CITRIC UR, PHOS 24HRU, URIC 24HRU #### [facility] , #### COL T V, U24 NA, CREA24 #### [address] RBC,Urine 1-2 Normal 0-4 [facility] Comment on above: Order Comment: URINE VOLUME (MILLILTERS): [id number] Performed By: #### O XAL 24HRU, U24 CA, MAG 24HRU, CITRIC UR, PHOS 24HRU, URIC 24HRU #### [facility] , #### COL T V, U24 NA, CREA24 #### [address] Specificy Monette,Urine 1.028 Normal 1.001-1.03 0 [facility] Comment on above: Order Comment: URINE VOLUME (MILLILTERS): [id number] Performed By: #### O XAL 24HRU, U24 CA, MAG 24HRU, CITRIC UR, PHOS 24HRU, URIC 24HRU #### [facility] , #### COL T V, U24 NA, CREA24 #### [address] Squamous Epithelial Cell,Urine 0-1 Normal 0-2 [facility] Comment on above: Order Comment: URINE VOLUME (MILLILTERS): [id number] Performed By: #### O XAL 24HRU, U24 CA, MAG 24HRU, CITRIC UR, PHOS 24HRU, URIC 24HRU #### [facility] , #### COL T V, U24 NA, CREA24 #### [facility] [address] [place] [address] Urobilinogen,Urine Normal Normal Normal [facility] Comment on above: Order Comment: URINE VOLUME (MILLILTERS): [id number] Performed By: #### O XAL 24HRU, U24 CA, MAG 24HRU, CITRIC UR, PHOS 24HRU, URIC 24HRU #### [facility] , #### COL T V, U24 NA, [id number] #### [facility] [address] [place] [address] WBC,Urine 1-2 Normal 0-4 [facility] Comment on above: Order Comment: URINE VOLUME (MILLILTERS): [id number] Performed By: #### O XAL 24HRU, U24 CA, MAG 24HRU, CITRIC UR, PHOS 24HRU, URIC 24HRU #### [facility] , #### COL T V, U24 NA, [id number] #### [facility] [address] [place] [address] Eosinophils Auto (Bld) [#/Vo l]Ordered By: Christine Sanchez on 01-31-2023 Eosinophils (Bld) [#/Vol] 0.1 10*3/uL 0.0-0.45 [facility] Eosinophils/100 WBC Auto (Bl d)Ordered By: Christine Sanchez on 01-31-2023 Eosinophils/100 WBC (Bld) 1.2 % . [facility] Erythrocyte Sedimentation Ra bruno 01-31-2023 ESR (Bld) [Velocity] 3 mm/h Normal 0-19 [facility] Comment on above: Result Comment: PERF ORMED BY: [place] [id number] PATHOLOGIST YEAST CAKE CUTTER OLMAN ALBARRAN M.D. Performed By: #### O XAL 24HRU, U24 CA, MAG 24HRU, CITRIC UR, PHOS 24HRU, URIC 24HRU #### [facility] , #### COL T V, U24 NA, [id number] #### [facility] [address] Erythrocyte distribution wid th Auto (RBC) [Ratio]Ordered By: Christine Sanchez on 01-31-2023 Erythrocyte distribution width (RBC) [Ratio] 15.2 % 12.0-14.8 [facility] Erythrocyte sedimentation ra te by Photometric methodOrdered By: Christine Sanchez on 01-31-2023 ESR Photometric method (Bld) [Velocity] 3 mm/hr 0-19 [facility] Globulin Calc (S) [Mass/Vol] Ordered By: Christine Sanchez on 01-31-2023 Globulin (S) [Mass/Vol] 1.9 g/dL [facility] Glucose [Mass/volume] in Ser um or PlasmaOrdered By: Christine Sanchez on 01-31-2023 Glucose [Mass/Vol] 131 mg/dL 74-109 [facility] Comment on above: ADA recommended refe rence rangeRandom Glucose Reference Range is dependent on time and content of last meal. Glucose of more than 200 mg/dL in a nonstressed, ambulatory subject supports the diagnosis of Diabetes Mellitus. Hematocrit Auto (Bld) [Volum e fraction]Ordered By: Christine Sanchez on 01-31-2023 Hematocrit (Bld) [Volume fraction] 45.2 % 38.8-50.0 [facility] Hemoglobin [Mass/volume] in BloodOrdered By: Christine Sanchez on 01-31-2023 Hemoglobin (Bld) [Mass/Vol] 15.4 g/dL 13.0-17.0 [facility] Ketones Auto test strip (U) [Mass/Vol]Ordered By: Christine Sanchez on 01-31-2023 Ketones (U) [Mass/Vol] Trace Negative [facility] Laboratory - Chemistry and C hemistry - challengeOrdered By: Christine Sanchez on 01-31-2023 GFR/1.73 sq M.predicted MDRD (S/P/Bld) [Vol rate/Area] mL/min/{1.73_m2} [facility] Laboratory - UrinalysisOrder ed By: Christine Sanchez on 01-31-2023 Hyaline casts LM Ql (Urine sed) 0-8 [LPF] 0-8 [facility] Leukocytes [#/volume] correc nat for nucleated erythrocytes in Blood by Automated counOrdered By: Christine Sanchez on 01-31-2023 WBC corrected for nucl RBC Auto (Bld) [#/Vol] 4.5 10*3/uL 4.1-10.5 [facility] Lymphocytes Auto (Bld) [#/Vo l]Ordered By: Christine Sanchez on 01-31-2023 Lymphocytes (Bld) [#/Vol] 0.7 10*3/uL 1.00-4.8 [facility] Lymphocytes/100 WBC Auto (Bl d)Ordered By: Christine Sanchez on 01-31-2023 Lymphocytes/100 WBC (Bld) 15.3 % . [facility] MCH Auto (RBC) [Entitic mass ]Ordered By: Christine Sanchez on 01-31-2023 MCH (RBC) [Entitic mass] 30.4 pg 27.5-35.2 [facility] MCHC Auto (RBC) [Mass/Vol]Or dered By: Christine Sanchez on 01-31-2023 MCHC (RBC) [Mass/Vol] 34.1 g/dL 32.5-35.6 [facility] MCV Auto (RBC) [Entitic vol] Ordered By: Christine Sanchez on 01-31-2023 MCV (RBC) [Entitic vol] 89.0 fL 83.5-101 [facility] Monocytes Auto (Bld) [#/Vol] Ordered By: Christine Sanchez on 01-31-2023 Monocytes (Bld) [#/Vol] 0.4 10*3/uL 0.0-0.8 [facility] Monocytes/100 WBC Auto (Bld) Ordered By: Christine Sanchez on 01-31-2023 Monocytes/100 WBC (Bld) 9.0 % . [facility] Neutrophils Auto (Bld) [#/Vo l]Ordered By: Christine Sanchez on 01-31-2023 Neutrophils (Bld) [#/Vol] 3.3 10*3/uL 1.8-7.7 [facility] Neutrophils/100 WBC Auto (Bl d)Ordered By: Christine Sanchez on 01-31-2023 Neutrophils/100 WBC (Bld) 74.0 % . [facility] Nitrite Test strip Ql (U)Ord ered By: Christine Sanchez on 01-31-2023 Nitrite Ql (U) Negative Negative [facility] No Panel InformationOrdered By: Chrsitine Sanchez on 01-31-2023 Pharmacy Creatinine Clearance (Chem N/A [facility] Total Complement (CH50) >60 U/mL >41 [facility] Comment on above: Age Male Female 1 - 30 days Not Estab. Not Estab. 31 days - 6 months >32 >20 7 months - 17 years >39 >39 >17 years >41 >41 NOTE: The adult ( >17 years ) reference interval range is used to flag abnormals on this report. If the patient is 17 years old or younger, use the table above to determine out of range values.Performed at: [facility] [id number] Director: Richy Ardon PhD, Phone: [phone] Nucleated erythrocytes [Pres ence] in Blood by Automated countOrdered By: Christine Sanchez on 01-31-2023 Nucleated RBC Auto Ql (Bld) 0.3 /100{WBC} 0-0.5 [facility] Platelet mean volume Auto (B ld) [Entitic vol]Ordered By: Christine Sanchez on 01-31-2023 Platelet mean volume (Bld) [Entitic vol] 8.5 fL 6.6-10.1 [facility] Platelets Auto (Bld) [#/Vol] Ordered By: Christine Sanchez on 01-31-2023 Platelets (Bld) [#/Vol] 163 10*3/uL 150-450 [facility] Potassium [Moles/volume] in Serum or PlasmaOrdered By: Christine Sanchez on 01-31-2023 Potassium [Moles/Vol] 3.7 mmol/L 3.5-5.1 [facility] Protein Auto test strip (U) [Mass/Vol]Ordered By: Christine Sanchez on 01-31-2023 Protein (U) [Mass/Vol] Trace mg/dL Negative [facility] Protein [Mass/volume] in Ser um or PlasmaOrdered By: Christine Sanchez on 01-31-2023 Protein [Mass/Vol] 6.2 g/dL 6.4-8.9 [facility] RBC Auto (Bld) [#/Vol]Ordere d By: Christine Sanchez on 01-31-2023 RBC (Bld) [#/Vol] 5.08 10*6/uL 3.90-5.60 [facility] Serum or plasma albumin/glob ulin mass ratioOrdered By: Christine Sanchez on 01-31-2023 Albumin/Globulin [Mass ratio] 2.3 {ratio} [facility] Serum or plasma anion gap de terminationOrdered By: Christine Sanchez on 01-31-2023 Anion gap [Moles/Vol] 11.1 mmol/L 6.0-15.0 [facility] Serum or plasma complement C 3 measurement (mass/volume)Ordered By: Christine Sanchez on 01-31-2023 Complement C3 [Mass/Vol] 124 mg/dL 82-167 [facility] Comment on above: Performed at: [place] [id number] Director: Richy Ardon PhD, Phone: [phone] Serum or plasma complement C 4 measurement (mass/volume)Ordered By: Christine Sanchez on 01-31-2023 Complement C4 [Mass/Vol] 16 mg/dL 12-38 [facility] Sodium [Moles/volume] in Ser um or PlasmaOrdered By: Christine Sanchez on 01-31-2023 Sodium [Moles/Vol] 140 mmol/L 136-145 [facility] Specific gravity Auto test s trip (U) [Rel density]Ordered By: Christine Sanchez on 01-31-2023 Specific gravity (U) [Rel density] 1.028 1.001-1.03 0 [facility] Squamous epithelial cells de tection in urine sediment by light microscopyOrdered By: Christine Sanchez on 01-31-2023 Epithelial cells.squamous LM Ql (Urine sed) 0-1 [HPF] 0-2 [facility] Urea nitrogen [Mass/volume] in Serum or PlasmaOrdered By: Christine Sanchez on 01-31-2023 Urea nitrogen [Mass/Vol] 23 mg/dL 7-25 [facility] Urine bacteria detection by automated methodOrdered By: Christine Sanchez on 01-31-2023 Bacteria Auto Ql (U) None seen None Seen [facility] Urine clarity by refractomet ry automatedOrdered By: Christine Sanchez on 01-31-2023 Clarity Refractometry automated (U) Turbid Clear [facility] Urine glucose measurement by automated test strip (mass/volume)Ordered By: Christine Sanchez on 01-31-2023 Glucose Auto test strip (U) [Mass/Vol] Normal mg/dL Normal [facility] Urine hemoglobin detection b y automated test stripOrdered By: Christine Sanchez on 01-31-2023 Hemoglobin Auto test strip Ql (U) Negative Negative [facility] Urine leukocyte esterase det ection by automated test stripOrdered By: Christine Sanchez on 01-31-2023 Leukocyte esterase Auto test strip Ql (U) 1+ Negative [facility] Urobilinogen Auto test strip (U) [Mass/Vol]Ordered By: Christine Sanchez on 01-31-2023 Urobilinogen (U) [Mass/Vol] Normal mg/dL Normal [facility] WBC Auto (Bld) [#/Vol]Ordere d By: Christine Sanchez on 01-31-2023 WBC (Bld) [#/Vol] 4.5 10*3/uL 4.1-10.5 [facility] pH Auto test strip (U)Ordere d By: Christine Sanchez on 01-31-2023 pH (U) 5.0 [pH] 5.0-9.0 [facility] Automated erythrocytes count in urine sediment (number/area)Ordered By: Christine Sanchez on 10-26-2022 RBC Auto (Urine sed) [#/Area] 0-1 [HPF] 0-4 [facility] Automated leukocytes count i n urine sediment (number/area)Ordered By: Christine Sanchez on 10-26-2022 WBC Auto (Urine sed) [#/Area] 0-1 [HPF] 0-4 [facility] Basophils Auto (Bld) [#/Vol] Ordered By: Christine Sanchez on 10-26-2022 Basophils (Bld) [#/Vol] 0.0 10*3/uL 0.0-0.2 [facility] Basophils/100 WBC Auto (Bld) Ordered By: Christine Sanchez on 10-26-2022 Basophils/100 WBC (Bld) 0.6 % . [facility] Bilirubin Test strip Ql (U)O rdered By: Christine Sanchez on 10-26-2022 Bilirubin Ql (U) Negative Negative [facility] Body fluid albumin measureme nt (mass/volume)Ordered By: Christine Sanchez on 10-26-2022 Albumin (Body fld) [Mass/Vol] 4.0 g/dL 3.2-5.5 [facility] Color Auto (U)Ordered By: Marianna Arellano on 10-26-2022 Color (U) Yellow Yellow [facility] Creatinine and Glomerular fi ltration rate.predicted panel (S/P/Bld)Ordered By: Christine Sanchez on 10-26-2022 Creatinine [Mass/Vol] 0.89 mg/dL 0.64-1.27 [facility] Eosinophils Auto (Bld) [#/Vo l]Ordered By: Christine Sanchez on 10-26-2022 Eosinophils (Bld) [#/Vol] 0.1 10*3/uL 0.0-0.45 [facility] Eosinophils/100 WBC Auto (Bl d)Ordered By: Christine Sanchez on 10-26-2022 Eosinophils/100 WBC (Bld) 1.9 % . [facility] Erythrocyte distribution wid th Auto (RBC) [Ratio]Ordered By: Christine Sanchez on 10-26-2022 Erythrocyte distribution width (RBC) [Ratio] 14.7 % 12.0-14.8 [facility] Erythrocyte sedimentation ra te by Photometric methodOrdered By: Christine Sanchez on 10-26-2022 ESR Photometric method (Bld) [Velocity] 6 mm/hr 0-19 [facility] Estimated glomerular filtrat ion rate (GFR) non- AmericanOrdered By: Christine Sanchez on 10-26-2022 GFR/1.73 sq M.predicted among non-blacks MDRD (S/P/Bld) [Vol rate/Area] > 60 mL/Min [facility] Globulin Calc (S) [Mass/Vol] Ordered By: Christine Sanchez on 10-26-2022 Globulin (S) [Mass/Vol] 2.2 g/dL [facility] Hematocrit Auto (Bld) [Volum e fraction]Ordered By: Christine Sanchez on 10-26-2022 Hematocrit (Bld) [Volume fraction] 45.5 % 38.8-50.0 [facility] Hemoglobin [Mass/volume] in BloodOrdered By: Christine Sanchez on 10-26-2022 Hemoglobin (Bld) [Mass/Vol] 15.5 g/dL 13.0-17.0 [facility] Ketones Auto test strip (U) [Mass/Vol]Ordered By: Christine Sanchez on 10-26-2022 Ketones (U) [Mass/Vol] Trace Negative [facility] - UrinalysisOrder ed By: Christine Sanchez on 10-26-2022 Hyaline casts LM Ql (Urine sed) 0-8 [LPF] 0-8 [facility] Leukocytes [#/volume] correc nat for nucleated erythrocytes in Blood by Automated counOrdered By: Christine Sanchez on 10-26-2022 WBC corrected for nucl RBC Auto (Bld) [#/Vol] 4.7 10*3/uL 4.1-10.5 [facility] Lymphocytes Auto (Bld) [#/Vo l]Ordered By: Christine Sanchez on 10-26-2022 Lymphocytes (Bld) [#/Vol] 0.8 10*3/uL 1.00-4.8 [facility] Lymphocytes/100 WBC Auto (Bl d)Ordered By: Christine Sanchez on 10-26-2022 Lymphocytes/100 WBC (Bld) 16.8 % . [facility] MCH Auto (RBC) [Entitic mass ]Ordered By: Christine Sanchez on 10-26-2022 MCH (RBC) [Entitic mass] 30.4 pg 27.5-35.2 [facility] MCHC Auto (RBC) [Mass/Vol]Or dered By: Christine Sanchez on 10-26-2022 MCHC (RBC) [Mass/Vol] 33.9 g/dL 32.5-35.6 [facility] MCV Auto (RBC) [Entitic vol] Ordered By: Christine Sanchez on 10-26-2022 MCV (RBC) [Entitic vol] 89.6 fL 83.5-101 [facility] Monocytes Auto (Bld) [#/Vol] Ordered By: Christine Sanchez on 10-26-2022 Monocytes (Bld) [#/Vol] 0.6 10*3/uL 0.0-0.8 [facility] Monocytes/100 WBC Auto (Bld) Ordered By: Christine Sanchez on 10-26-2022 Monocytes/100 WBC (Bld) 12.8 % . [facility] Neutrophils Auto (Bld) [#/Vo l]Ordered By: Christine Sanchez on 10-26-2022 Neutrophils (Bld) [#/Vol] 3.2 10*3/uL 1.8-7.7 [facility] Neutrophils/100 WBC Auto (Bl d)Ordered By: Christine Sanchez on 10-26-2022 Neutrophils/100 WBC (Bld) 67.9 % . [facility] Nitrite Test strip Ql (U)Ord ered By: Christine Sanchez on 10-26-2022 Nitrite Ql (U) Negative Negative [facility] No Panel InformationOrdered By: Christine Sanchez on 10-26-2022 Estimated GFR () > 60 mL/Min [facility] Comment on above: GFR estimated refere nce range: According to KDOQI guidelines, <60 ml/min/1.73m2 is sufficient to diagnose a patient with chronic kidney disease. Pharmacy Creatinine Clearance (Chem N/A [facility] Nucleated erythrocytes [Pres ence] in Blood by Automated countOrdered By: Christine Sanchez on 10-26-2022 Nucleated RBC Auto Ql (Bld) 0.3 /100{WBC} 0-0.5 [facility] Platelet mean volume Auto (B ld) [Entitic vol]Ordered By: Christine Sanchez on 10-26-2022 Platelet mean volume (Bld) [Entitic vol] 8.3 fL 6.6-10.1 [facility] Platelets Auto (Bld) [#/Vol] Ordered By: Christine Sanchez on 10-26-2022 Platelets (Bld) [#/Vol] 203 10*3/uL 150-450 [facility] Protein Auto test strip (U) [Mass/Vol]Ordered By: Christine Sanchez on 10-26-2022 Protein (U) [Mass/Vol] Negative Negative [facility] Protein [Mass/volume] in Ser um or PlasmaOrdered By: Christine Sanchez on 10-26-2022 Protein [Mass/Vol] 6.2 g/dL 6.1-7.9 [facility] RBC Auto (Bld) [#/Vol]Ordere d By: Christine Sanchez on 10-26-2022 RBC (Bld) [#/Vol] 5.08 10*6/uL 3.90-5.60 [facility] Serum or plasma alanine calvert otransferase measurement without P-5'-P (enzymatic activiOrdered By: Christine Sanchez on 10-26-2022 ALT No additional P-5'-P [Catalytic activity/Vol] 40 U/L 10-60 [facility] Serum or plasma albumin/glob ulin mass ratioOrdered By: Christine Sanchez on 10-26-2022 Albumin/Globulin [Mass ratio] 1.8 {ratio} [facility] Serum or plasma alkaline kelsie sphatase measurement (enzymatic activity/volume)Ordered By: Christine Sanchez on 10-26-2022 ALP [Catalytic activity/Vol] 82 U/L 32-92 [facility] Serum or plasma anion gap de terminationOrdered By: Christine Sanchez on 10-26-2022 Anion gap [Moles/Vol] 16.9 mmol/L 6.0-15.0 [facility] Serum or plasma aspartate am inotransferase measurement (enzymatic activity/volume)Ordered By: Christine Sanchez on 10-26-2022 AST [Catalytic activity/Vol] 24 U/L 10-42 [facility] Serum or plasma calcium ophelia urement (mass/volume)Ordered By: Christine Sanchez on 10-26-2022 Calcium [Mass/Vol] 9.6 mg/dL 8.2-10.2 [facility] Serum or plasma chloride arelis surement (moles/volume)Ordered By: Christine Sanchez on 10-26-2022 Chloride [Moles/Vol] 102 mmol/L 95-114 [facility] Serum or plasma glucose ophelia urement (mass/volume)Ordered By: Christine Sanchez on 10-26-2022 Glucose [Mass/Vol] 105 mg/dL 70-100 [facility] Comment on above: ADA recommended refe rence rangeRandom Glucose Reference Range is dependent on time and content of last meal. Glucose of more than 200 mg/dL in a nonstressed, ambulatory subject supports the diagnosis of Diabetes Mellitus. Serum or plasma potassium me asurement (moles/volume)Ordered By: Christine Sanchez on 10-26-2022 Potassium [Moles/Vol] 4.1 mmol/L 3.5-5.1 [facility] Serum or plasma sodium measu rement (moles/volume)Ordered By: Christine Sanchez on 10-26-2022 Sodium [Moles/Vol] 136 mmol/L 136-146 [facility] Serum or plasma total biliru bin measurement (mass/volume)Ordered By: Christine Sanchez on 10-26-2022 Bilirubin [Mass/Vol] 0.8 mg/dL 0.3-1.2 [facility] Serum or plasma total carbon dioxide measurement (moles/volume)Ordered By: Christine Sanchez on 10-26-2022 CO2 [Moles/Vol] 21.2 mmol/L 22.0-30.0 [facility] Serum or plasma urea nitroge n measurement (mass/volume)Ordered By: Christine Sanchez on 10-26-2022 Urea nitrogen [Mass/Vol] 16 mg/dL 9-23 [facility] Specific gravity Auto test s trip (U) [Rel density]Ordered By: Christine Sanchez on 10-26-2022 Specific gravity (U) [Rel density] 1.024 1.001-1.03 0 [facility] Squamous epithelial cells de tection in urine sediment by light microscopyOrdered By: Christine Sanchez on 10-26-2022 Epithelial cells.squamous LM Ql (Urine sed) None seen [HPF] 0-2 [facility] Urine bacteria detection by automated methodOrdered By: Christine Sanchez on 10-26-2022 Bacteria Auto Ql (U) None seen None Seen [facility] Urine clarity by refractomet ry automatedOrdered By: Christine Sanchez on 10-26-2022 Clarity Refractometry automated (U) Clear Clear [facility] Urine glucose measurement by automated test strip (mass/volume)Ordered By: Christine Sanchez on 10-26-2022 Glucose Auto test strip (U) [Mass/Vol] Normal mg/dL Normal [facility] Urine hemoglobin detection b y automated test stripOrdered By: Christine Sanchez on 10-26-2022 Hemoglobin Auto test strip Ql (U) Negative Negative [facility] Urine leukocyte esterase det ection by automated test stripOrdered By: Christine Sanchez on 10-26-2022 Leukocyte esterase Auto test strip Ql (U) Negative Negative [facility] Urobilinogen Auto test strip (U) [Mass/Vol]Ordered By: Christine Sanchez on 10-26-2022 Urobilinogen (U) [Mass/Vol] Normal mg/dL Normal [facility] WBC Auto (Bld) [#/Vol]Ordere d By: Christine Sanchez on 10-26-2022 WBC (Bld) [#/Vol] 4.7 10*3/uL 4.1-10.5 [facility] pH Auto test strip (U)Ordere d By: Christine Sanchez on 10-26-2022 pH (U) 5.5 [pH] 5.0-9.0 [facility] Automated erythrocytes count in urine sediment (number/area)Ordered By: Christine Sanchez on 07-21-2022 RBC Auto (Urine sed) [#/Area] 0-1 [HPF] 0-4 [facility] Automated leukocytes count i n urine sediment (number/area)Ordered By: Christine Sanchez on 07-21-2022 WBC Auto (Urine sed) [#/Area] 0-1 [HPF] 0-4 [facility] Basophils Auto (Bld) [#/Vol] Ordered By: Christine Sanchez on 07-21-2022 Basophils (Bld) [#/Vol] 0.0 10*3/uL 0.0-0.2 [facility] Basophils/100 WBC Auto (Bld) Ordered By: Christine Sanchez on 07-21-2022 Basophils/100 WBC (Bld) 0.6 % . [facility] Bilirubin Test strip Ql (U)O rdered By: Christine Sanchez on 07-21-2022 Bilirubin Ql (U) Negative Negative [facility] Body fluid albumin measureme nt (mass/volume)Ordered By: Christine Sanchez on 07-21-2022 Albumin (Body fld) [Mass/Vol] 3.9 g/dL 3.2-5.5 [facility] Color Auto (U)Ordered By: Marianna Arellano on 07-21-2022 Color (U) Yellow Yellow [facility] Creatinine and Glomerular fi ltration rate.predicted panel (S/P/Bld)Ordered By: Christine Sanchez on 07-21-2022 Creatinine [Mass/Vol] 0.91 mg/dL 0.64-1.27 [facility] Eosinophils Auto (Bld) [#/Vo l]Ordered By: Christine Sanchez on 07-21-2022 Eosinophils (Bld) [#/Vol] 0.1 10*3/uL 0.0-0.45 [facility] Eosinophils/100 WBC Auto (Bl d)Ordered By: Christine Sanchez on 07-21-2022 Eosinophils/100 WBC (Bld) 1.6 % . [facility] Erythrocyte distribution wid th Auto (RBC) [Ratio]Ordered By: Christine Sanchez on 07-21-2022 Erythrocyte distribution width (RBC) [Ratio] 15.2 % 12.0-14.8 [facility] Erythrocyte sedimentation ra te by Photometric methodOrdered By: Christine Sanchez on 07-21-2022 ESR Photometric method (Bld) [Velocity] 9 mm/hr 0-19 [facility] Estimated glomerular filtrat ion rate (GFR) non- AmericanOrdered By: Christine Sanchez on 07-21-2022 GFR/1.73 sq M.predicted among non-blacks MDRD (S/P/Bld) [Vol rate/Area] > 60 mL/Min [facility] Globulin Calc (S) [Mass/Vol] Ordered By: Christine Sanchez on 07-21-2022 Globulin (S) [Mass/Vol] 2.1 g/dL [facility] Hematocrit Auto (Bld) [Volum e fraction]Ordered By: Christine Sanchez on 07-21-2022 Hematocrit (Bld) [Volume fraction] 45.4 % 38.8-50.0 [facility] Hemoglobin [Mass/volume] in BloodOrdered By: Christine Sanchez on 07-21-2022 Hemoglobin (Bld) [Mass/Vol] 15.2 g/dL 13.0-17.0 [facility] Ketones Auto test strip (U) [Mass/Vol]Ordered By: Christine Sanchez on 07-21-2022 Ketones (U) [Mass/Vol] Negative [facility] - [facility]ology and Cell countsOrdered By: Christine Sanchez on 07-21-2022 Nucleated RBC/100 WBC (Bld) [Ratio] 0.1 % 0-0.5 [facility] Laboratory - UrinalysisOrder ed By: Christine Sanchez on 07-21-2022 Hyaline casts LM Ql (Urine sed) 0-8 [LPF] 0-8 [facility] Leukocytes [#/volume] in Blo od by Automated countOrdered By: Christine Sanchez on 07-21-2022 WBC (Bld) [#/Vol] 6.6 10*3/uL 4.5-11.0 [facility] Lymphocytes Auto (Bld) [#/Vo l]Ordered By: Christine Sanchez on 07-21-2022 Lymphocytes (Bld) [#/Vol] 0.8 10*3/uL 1.00-4.8 [facility] Lymphocytes/100 WBC Auto (Bl d)Ordered By: Christine Sanchez on 07-21-2022 Lymphocytes/100 WBC (Bld) 11.5 % . [facility] MCH Auto (RBC) [Entitic mass ]Ordered By: Christine Sanchez on 07-21-2022 MCH (RBC) [Entitic mass] 30.3 pg 27.5-35.2 [facility] MCHC Auto (RBC) [Mass/Vol]Or dered By: Christine Sanchez on 07-21-2022 MCHC (RBC) [Mass/Vol] 33.5 g/dL 32.5-35.6 [facility] MCV Auto (RBC) [Entitic vol] Ordered By: Christine Sanchez on 07-21-2022 MCV (RBC) [Entitic vol] 90.4 fL 83.5-101 [facility] Monocytes Auto (Bld) [#/Vol] Ordered By: Christine Sanchez on 07-21-2022 Monocytes (Bld) [#/Vol] 0.9 10*3/uL 0.0-0.8 [facility] Monocytes/100 WBC Auto (Bld) Ordered By: Christine Sanchez on 07-21-2022 Monocytes/100 WBC (Bld) 13.7 % . [facility] Neutrophils Auto (Bld) [#/Vo l]Ordered By: Christine Sanchez on 07-21-2022 Neutrophils (Bld) [#/Vol] 4.8 10*3/uL 1.8-7.7 [facility] Neutrophils/100 WBC Auto (Bl d)Ordered By: Christine Sanchez on 07-21-2022 Neutrophils/100 WBC (Bld) 72.6 % . [facility] Nitrite Test strip Ql (U)Ord ered By: Christine Sanchez on 07-21-2022 Nitrite Ql (U) Negative Negative [facility] No Panel InformationOrdered By: Christine Sanchez on 07-21-2022 Estimated GFR () > 60 mL/Min [facility] Comment on above: GFR estimated refere nce range: According to KDOQI guidelines, <60 ml/min/1.73m2 is sufficient to diagnose a patient with chronic kidney disease. Pharmacy Creatinine Clearance (Chem N/A [facility] Total Complement (CH50) >60 U/mL >41 [facility] Comment on above: Age Male Female 1 - 30 days Not Estab. Not Estab. 31 days - 6 months >32 >20 7 months - 17 years >39 >39 >17 years >41 >41 NOTE: The adult ( >17 years ) reference interval range is used to flag abnormals on this report. If the patient is 17 years old or younger, use the table above to determine out of range values.Performed at: - [facility] [id number] Director: Richy Ardon PhD, Phone: [phone] Platelet mean volume Auto (B ld) [Entitic vol]Ordered By: Christine Sanchez on 07-21-2022 Platelet mean volume (Bld) [Entitic vol] 8.4 fL 6.6-10.1 [facility] Platelets Auto (Bld) [#/Vol] Ordered By: Christine Sanchez on 07-21-2022 Platelets (Bld) [#/Vol] 185 10*3/uL 150-450 [facility] Protein Auto test strip (U) [Mass/Vol]Ordered By: Christine Sanchez on 07-21-2022 Protein (U) [Mass/Vol] Negative Negative [facility] Protein [Mass/volume] in Ser um or PlasmaOrdered By: Christine Sanchez on 07-21-2022 Protein [Mass/Vol] 6.0 g/dL 6.1-7.9 [facility] RBC Auto (Bld) [#/Vol]Ordere d By: Christine Sanchez on 07-21-2022 RBC (Bld) [#/Vol] 5.03 10*6/uL 3.90-5.60 [facility] Serum or plasma alanine calvert otransferase measurement without P-5'-P (enzymatic activiOrdered By: Christine Sanchez on 07-21-2022 ALT No additional P-5'-P [Catalytic activity/Vol] 35 U/L 10-60 [facility] Serum or plasma albumin/glob ulin mass ratioOrdered By: Christine Sanchez on 07-21-2022 Albumin/Globulin [Mass ratio] 1.9 {ratio} [facility] Serum or plasma alkaline kelsie sphatase measurement (enzymatic activity/volume)Ordered By: Christine Sanchez on 07-21-2022 ALP [Catalytic activity/Vol] 81 U/L 32-92 [facility] Serum or plasma anion gap de terminationOrdered By: Christine Sanchez on 07-21-2022 Anion gap [Moles/Vol] 13.7 mmol/L 6.0-15.0 [facility] Serum or plasma aspartate am inotransferase measurement (enzymatic activity/volume)Ordered By: Christine Sanchez on 07-21-2022 AST [Catalytic activity/Vol] 20 U/L 10-42 [facility] Serum or plasma calcium ophelia urement (mass/volume)Ordered By: Christine Sanchez on 07-21-2022 Calcium [Mass/Vol] 9.5 mg/dL 8.2-10.2 [facility] Serum or plasma chloride arelis surement (moles/volume)Ordered By: Christine Sanchez on 07-21-2022 Chloride [Moles/Vol] 103 mmol/L 95-114 [facility] Serum or plasma complement C 3 measurement (mass/volume)Ordered By: Christine Sanchez on 07-21-2022 Complement C3 [Mass/Vol] 145 mg/dL 82-167 [facility] Comment on above: Performed at: [address] [id number] Director: Richy Ardon PhD, Phone: [phone] Serum or plasma complement C 4 measurement (mass/volume)Ordered By: Christine Sanchez on 07-21-2022 Complement C4 [Mass/Vol] 23 mg/dL 12-38 [facility] Serum or plasma glucose ophelia urement (mass/volume)Ordered By: Christine Sanchez on 07-21-2022 Glucose [Mass/Vol] 83 mg/dL 70-100 [facility] Comment on above: ADA recommended refe rence rangeRandom Glucose Reference Range is dependent on time and content of last meal. Glucose of more than 200 mg/dL in a nonstressed, ambulatory subject supports the diagnosis of Diabetes Mellitus. Serum or plasma potassium me asurement (moles/volume)Ordered By: Christine Sanchez on 07-21-2022 Potassium [Moles/Vol] 4.1 mmol/L 3.5-5.1 [facility] Serum or plasma sodium measu rement (moles/volume)Ordered By: Christine Sanchez on 07-21-2022 Sodium [Moles/Vol] 135 mmol/L 136-146 [facility] Serum or plasma total biliru bin measurement (mass/volume)Ordered By: Christine Sanchez on 07-21-2022 Bilirubin [Mass/Vol] 0.9 mg/dL 0.3-1.2 [facility] Serum or plasma total carbon dioxide measurement (moles/volume)Ordered By: Christine Sanchez on 07-21-2022 CO2 [Moles/Vol] 22.4 mmol/L 22.0-30.0 [facility] Serum or plasma urea nitroge n measurement (mass/volume)Ordered By: Christine Sanchez on 07-21-2022 Urea nitrogen [Mass/Vol] 15 mg/dL 9- [facility] Specific gravity Auto test s trip (U) [Rel density]Ordered By: Christine Sanchez on 07-21-2022 Specific gravity (U) [Rel density] 1.020 1.001-1.03 0 [facility] Squamous epithelial cells de tection in urine sediment by light microscopyOrdered By: Christine Sanchez on 07-21-2022 Epithelial cells.squamous LM Ql (Urine sed) None seen [HPF] 0-2 [facility] Urine bacteria detection by automated methodOrdered By: Christine Sanchez on 07-21-2022 Bacteria Auto Ql (U) None seen None Seen [facility] Urine clarity by refractomet ry automatedOrdered By: Christine Sanchez on 07-21-2022 Clarity Refractometry automated (U) Clear Clear [facility] Urine glucose measurement by automated test strip (mass/volume)Ordered By: Christine Sanchez on 07-21-2022 Glucose Auto test strip (U) [Mass/Vol] Normal mg/dL Normal [facility] Urine hemoglobin detection b y automated test stripOrdered By: Christine Sanchez on 07-21-2022 Hemoglobin Auto test strip Ql (U) Negative Negative [facility] Urine leukocyte esterase det ection by automated test stripOrdered By: Christine Sanchez on 07-21-2022 Leukocyte esterase Auto test strip Ql (U) Negative Negative [facility] Urobilinogen Auto test strip (U) [Mass/Vol]Ordered By: Christine Sanchez on 07-21-2022 Urobilinogen (U) [Mass/Vol] Normal mg/dL Normal [facility] pH Auto test strip (U)Ordere d By: Christine Sanchez on 07-21-2022 pH (U) 6.0 [pH] 5.0-9.0 [facility] Automated erythrocytes count in urine sediment (number/area)Ordered By: Romel Davis on 04-14-2022 RBC Auto (Urine sed) [#/Area] 5-9 [HPF] [facility] Automated leukocytes count i n urine sediment (number/area)Ordered By: Romel Davis on 04-14-2022 WBC Auto (Urine sed) [#/Area] 0-1 [HPF] [facility] Basophils Auto (Bld) [#/Vol] Ordered By: Romel Ryan on 04-14-2022 Basophils (Bld) [#/Vol] 0.0 10*3/uL 0.0-0.2 [facility] Basophils/100 WBC Auto (Bld) Ordered By: Romel Davis on 04-14-2022 Basophils/100 WBC (Bld) 0.6 % [facility] Bilirubin Test strip Ql (U)O rdered By: Romel Davis on 04-14-2022 Bilirubin Ql (U) Negative Negative [facility] Blood hemoglobin measurement (mass/volume)Ordered By: Romel Davis on 04-14-2022 Hemoglobin (Bld) [Mass/Vol] 15.4 g/dL 13.0-17.0 [facility] Blood leukocytes automated c ount (number/volume)Ordered By: Romel Davis on 04-14-2022 WBC (Bld) [#/Vol] 5.8 10*3/uL 4.5-11.0 [facility] Body fluid albumin measureme nt (mass/volume)Ordered By: Romel Davis on 04-14-2022 Albumin (Body fld) [Mass/Vol] 3.9 g/dL 3.2-5.5 [facility] Cholesterol [Mass/volume] in Serum or PlasmaOrdered By: Sascha Sutton on 04-14-2022 Cholesterol [Mass/Vol] 125 mg/dL 140-200 [facility] Comment on above: Chol less than 200 m g/dl low risk Chol 201-239 mg/dl borderline risk Chol 240 mg/dl and greater high risk Cholesterol in LDL Calc [Mas s/Vol]Ordered By: Sascha Sutton on 04-14-2022 Cholesterol in LDL [Mass/Vol] 69 mg/dL 0-100 [facility] Comment on above: LDL ATP III CLASSIFI CATION LDL less than 100 mg/dL Optimal LDL 100-129 mg/dL Near or above optimal LDL 130-159 mg/dL Borderline high LDL 160-189 mg/dL High LDL greater than 189 mg/dL Very high Cholesterol in VLDL Calc [Ma ss/Vol]Ordered By: Sascha Sutton on 04-14-2022 Cholesterol in VLDL [Mass/Vol] 15 mg/dL [facility] Color Auto (U)Ordered By: Bridgett nasreen Ryan on 04-14-2022 Color (U) Yellow Yellow [facility] Creatinine and Glomerular fi ltration rate.predicted panel (S/P/Bld)Ordered By: Romel Davis on 04-14-2022 Creatinine [Mass/Vol] 0.86 mg/dL 0.64-1.27 [facility] Eosinophils Auto (Bld) [#/Vo l]Ordered By: Romel Davis on 04-14-2022 Eosinophils (Bld) [#/Vol] 0.1 10*3/uL 0.0-0.45 [facility] Eosinophils/100 WBC Auto (Bl d)Ordered By: Romel Davis on 04-14-2022 Eosinophils/100 WBC (Bld) 1.5 % [facility] Erythrocyte distribution wid th Auto (RBC) [Ratio]Ordered By: Romel Davis on 04-14-2022 Erythrocyte distribution width (RBC) [Ratio] 14.6 % 12.0-14.8 [facility] Erythrocyte sedimentation ra te by Photometric methodOrdered By: Romel Davis on 04-14-2022 ESR Photometric method (Bld) [Velocity] 5 mm/hr 0-19 [facility] Estimated glomerular filtrat ion rate (GFR) non- AmericanOrdered By: Romel Davis on 04-14-2022 GFR/1.73 sq M.predicted among non-blacks MDRD (S/P/Bld) [Vol rate/Area] > 60 mL/Min [facility] Globulin Calc (S) [Mass/Vol] Ordered By: Romel Davis on 04-14-2022 Globulin (S) [Mass/Vol] 2.3 g/dL [facility] Hematocrit Auto (Bld) [Volum e fraction]Ordered By: Romel Davis on 04-14-2022 Hematocrit (Bld) [Volume fraction] 45.0 % 38.8-50.0 [facility] Ketones Auto test strip (U) [Mass/Vol]Ordered By: Romel Davis on 04-14-2022 Ketones (U) [Mass/Vol] Trace Negative [facility] Laboratory - Hematology and Cell countsOrdered By: Romel Davis on 04-14-2022 Nucleated RBC/100 WBC (Bld) [Ratio] 0.1 % 0-0.5 [facility] Laboratory - UrinalysisOrder ed By: Romel Davis on 04-14-2022 Hyaline casts LM Ql (Urine sed) 0-8 [LPF] [facility] Lymphocytes Auto (Bld) [#/Vo l]Ordered By: Romel Davis on 04-14-2022 Lymphocytes (Bld) [#/Vol] 0.6 10*3/uL 1.00-4.8 [facility] Lymphocytes/100 WBC Auto (Bl d)Ordered By: Romel Davis on 04-14-2022 Lymphocytes/100 WBC (Bld) 10.9 % [facility] MCH Auto (RBC) [Entitic mass ]Ordered By: Romel Davis on 04-14-2022 MCH (RBC) [Entitic mass] 30.5 pg 27.5-35.2 [facility] MCHC Auto (RBC) [Mass/Vol]Or dered By: Romel Davis on 04-14-2022 MCHC (RBC) [Mass/Vol] 34.2 g/dL 32.5-35.6 [facility] MCV Auto (RBC) [Entitic vol] Ordered By: Romel Davis on 04-14-2022 MCV (RBC) [Entitic vol] 89.3 fL 83.5-101 [facility] Monocytes Auto (Bld) [#/Vol] Ordered By: Romel Davis on 04-14-2022 Monocytes (Bld) [#/Vol] 0.7 10*3/uL 0.0-0.8 [facility] Monocytes/100 WBC Auto (Bld) Ordered By: Romel Davis on 04-14-2022 Monocytes/100 WBC (Bld) 12.2 % [facility] Neutrophils Auto (Bld) [#/Vo l]Ordered By: Romel Davis on 04-14-2022 Neutrophils (Bld) [#/Vol] 4.4 10*3/uL 1.8-7.7 [facility] Neutrophils/100 WBC Auto (Bl d)Ordered By: Romel Davis on 04-14-2022 Neutrophils/100 WBC (Bld) 74.8 % [facility] Nitrite Test strip Ql (U)Ord ered By: Romel Davis on 04-14-2022 Nitrite Ql (U) Negative Negative [facility] No Panel InformationOrdered By: Romel Davis on 04-14-2022 Estimated GFR () > 60 mL/Min [facility] Comment on above: GFR estimated refere nce range: According to KDOQI guidelines, <60 ml/min/1.73m2 is sufficient to diagnose a patient with chronic kidney disease. Pharmacy Creatinine Clearance (Chem N/A [facility] No Panel InformationOrdered By: Sascha Sutton on 04-14-2022 Prostate Specific Antigen Screen 1.930 ng/mL 0.000-4.00 0 [facility] Platelet mean volume Auto (B ld) [Entitic vol]Ordered By: Romel Davis on 04-14-2022 Platelet mean volume (Bld) [Entitic vol] 8.8 fL 6.6-10.1 [facility] Platelets Auto (Bld) [#/Vol] Ordered By: Romel Davis on 04-14-2022 Platelets (Bld) [#/Vol] 181 10*3/uL 150-450 [facility] Protein Auto test strip (U) [Mass/Vol]Ordered By: Romel Davis on 04-14-2022 Protein (U) [Mass/Vol] Trace mg/dL Negative [facility] Protein [Mass/volume] in Ser um or PlasmaOrdered By: Romel Davis on 04-14-2022 Protein [Mass/Vol] 6.2 g/dL 6.1-7.9 [facility] RBC Auto (Bld) [#/Vol]Ordere d By: Romel Davis on 04-14-2022 RBC (Bld) [#/Vol] 5.03 10*6/uL 3.90-5.60 [facility] Serum or plasma alanine calvert otransferase measurement without P-5'-P (enzymatic activiOrdered By: Romel Davis on 04-14-2022 ALT No additional P-5'-P [Catalytic activity/Vol] 27 U/L 10-60 [facility] Serum or plasma albumin/glob ulin mass ratioOrdered By: Romel Davis on 04-14-2022 Albumin/Globulin [Mass ratio] 1.7 {ratio} [facility] Serum or plasma alkaline kelsie sphatase measurement (enzymatic activity/volume)Ordered By: Romel Davis on 04-14-2022 ALP [Catalytic activity/Vol] 77 U/L 32-92 [facility] Serum or plasma aspartate am inotransferase measurement (enzymatic activity/volume)Ordered By: Romel Davis on 04-14-2022 AST [Catalytic activity/Vol] 20 U/L 10-42 [facility] Serum or plasma calcium ophelia urement (mass/volume)Ordered By: Romel Davis on 04-14-2022 Calcium [Mass/Vol] 9.0 mg/dL 8.2-10.2 [facility] Serum or plasma chloride arelis surement (moles/volume)Ordered By: Romel Davis on 04-14-2022 Chloride [Moles/Vol] 104 mmol/L 95-114 [facility] Serum or plasma glucose ophelia urement (mass/volume)Ordered By: Romel Davis on 04-14-2022 Glucose [Mass/Vol] 110 mg/dL 70-100 [facility] Comment on above: ADA recommended refe rence range Random Glucose Reference Range is dependent on time and content of last meal. Glucose of more than 200 mg/dL in a nonstressed, ambulatory subject supports the diagnosis of Diabetes Mellitus. Serum or plasma high density lipoprotein (HDL) cholesterol measurementOrdered By: Sascha Sutton on 04-14-2022 Cholesterol in HDL [Mass/Vol] 41 mg/dL 29-71 [facility] Comment on above: HDL CHOL ATP-III CLA SSIFICATION Cardiovascular Risk HDL > or equal to 60 mg/dL LOW HDL < 40 mg/dL HIGH Serum or plasma potassium me asurement (moles/volume)Ordered By: Romel Davis on 05-25-2022 Potassium [Moles/Vol] 3.9 mmol/L 3.5-5.1 [facility] Serum or plasma sodium measu rement (moles/volume)Ordered By: Romel Davis on 04-14-2022 Sodium [Moles/Vol] 136 mmol/L 136-146 [facility] Serum or plasma total biliru bin measurement (mass/volume)Ordered By: Romel Davis on 04-14-2022 Bilirubin [Mass/Vol] 0.9 mg/dL 0.3-1.2 [facility] Serum or plasma total carbon dioxide measurement (moles/volume)Ordered By: Romel Davis on 04-14-2022 CO2 [Moles/Vol] 21.2 mmol/L 22.0-30.0 [facility] Serum or plasma total choles terol/high density lipoprotein (HDL) cholesterol mass ratOrdered By: Sascha Sutton on 04-14-2022 Cholesterol.total/Chol esterol in HDL [Mass ratio] 3.0 {ratio} [facility] Serum or plasma urea nitroge n measurement (mass/volume)Ordered By: Romel Davis on 04-14-2022 Urea nitrogen [Mass/Vol] 16 mg/dL 9-23 [facility] Specific gravity Auto test s trip (U) [Rel density]Ordered By: Romel Davis on 04-14-2022 Specific gravity (U) [Rel density] 1.025 1.001-1.03 0 [facility] Squamous epithelial cells de tection in urine sediment by light microscopyOrdered By: Romel Davis on 04-14-2022 Epithelial cells.squamous LM Ql (Urine sed) 0-1 [HPF] [facility] Triglyceride [Mass/volume] i n Serum or PlasmaOrdered By: Sascha Sutton on 04-14-2022 Triglyceride [Mass/Vol] 75 mg/dL 35-149 [facility] Comment on above: TRIG ATP III CLASSIF ICATION TRIG less than 150 mg/dL Normal TRIG 150-199 mg/dL Borderline high TRIG 200-500 mg/dL High TRIG greater than 500 mg/dL Very high Standard traceable to the Center for Disease Conrtrol and Prevention (CDC) test method. Urine bacteria detection by automated methodOrdered By: Romel Davis on 04-14-2022 Bacteria Auto Ql (U) None seen None Seen [facility] Urine clarity by refractomet ry automatedOrdered By: Romel Davis on 04-14-2022 Clarity Refractometry automated (U) Turbid Clear [facility] Urine glucose measurement by automated test strip (mass/volume)Ordered By: Romel Davis on 04-14-2022 Glucose Auto test strip (U) [Mass/Vol] Normal mg/dL Normal [facility] Urine hemoglobin detection b y automated test stripOrdered By: Romel Davis on 04-14-2022 Hemoglobin Auto test strip Ql (U) Negative Negative [facility] Urine leukocyte esterase det ection by automated test stripOrdered By: Romel Davis on 04-14-2022 Leukocyte esterase Auto test strip Ql (U) Negative Negative [facility] Urobilinogen Auto test strip (U) [Mass/Vol]Ordered By: Romel Davis on 04-14-2022 Urobilinogen (U) [Mass/Vol] Normal mg/dL Normal [facility] pH Auto test strip (U)Ordere d By: Romel Davis on 04-14-2022 pH (U) 5.5 [pH] 5.0-9.0 [facility] CT CSPINE WO CONon 2 CT CSPINE WO CON EXAMINATION: CT CSPI NE WO CON HISTORY: Unspecified fall COMPARISON: CT cervical spine 09/05/2012 TECHNIQUE: Axial, Coronal, and Sagittal images were created without IV contrast. Dose reduction techniques were achieved by using automated exposure control and/or adjustment of mA and/or kV according to patient size and/or use of iterative reconstruction technique. FINDINGS: VERTEBRAL BODIES: Reversal of the normal lordotic curvature of the cervical spine. Mild grade 1 anterolisthesis of C3 on 4. No fracture or bone lesion. FACET JOINTS: Moderate-marked degenerative facet arthropathy C2-C3 through C4-C5. No fracture or abnormal widening of the facet joints. CERVICAL DISCS: Mild narrowing C5-C6. Marked narrowing C6-C7. Suspect posterior disc bulging C4-C5 through C6-C7. CENTRAL CANAL: Suspect moderate narrowing posterior to C4-C5. No evidence of hemorrhage. PARASPINAL AREA: No visible mass. IMPRESSION: 1. No appreciable acute abnormality. 2. Multilevel degenerative disc disease and degenerative facet arthropathy resulting in bone and disc encroachment narrowing of the neural foramen and central canal. Electronically authenticated by: PRIMO GALE Date: 2022-04-09 17:03 Normal [facility] CT HEAD WO CONon 04-09-2022 CT HEAD WO CON EXAMINATION: CT HEAD WO CON HISTORY: Unspecified fall COMPARISON: CT head 09/05/2012 TECHNIQUE: Axial CT images were obtained without IV contrast. Dose reduction techniques were achieved by using automated exposure control and/or adjustment of mA and/or kV according to patient size and/or use of iterative reconstruction technique. FINDINGS: BRAIN: No edema, hemorrhage, mass, acute infarction, or inappropriate atrophy. CSF SPACES: No hydrocephalus, subarachnoid hemorrhage, or mass. Appropriate for age. SKULL: No fracture, mass, or other significant visible lesion. SINUSES: Paranasal sinuses are clear. Partial opacification of the mastoid air cells bilaterally. ORBITS: No appreciable abnormality on the limited views. OTHER: Negative IMPRESSION: 1. No acute or suspicious abnormality of the brain. 2. No fracture of the calvarium or scalp hematoma. 3. Fluid versus mucosal thickening within mastoid air cells bilaterally; also present on prior studies. Electronically authenticated by: PRIMO GALE Date: 2022-04-09 17:00 Normal [facility] CT TSPINE WO CONon CT TSPINE WO CON EXAMINATION: CT TSPI NE WO CON HISTORY: Unspecified fall COMPARISON: No relevant comparison available. TECHNIQUE: Axial, Coronal, and Sagittal CT images obtained without and with IV contrast. Dose reduction techniques were achieved by using automated exposure control and/or adjustment of mA and/or kV according to patient size and/or use of iterative reconstruction technique. FINDINGS: PARASPINAL AREA: Nonobstructing small stone within right kidney. DISCS: No significant disc/facet abnormality, spinal stenosis, or foraminal stenosis. BONES: No fracture, pars defect, or osseous lesion. OTHER: Negative. IMPRESSION: 1. No acute or suspicious findings of the thoracic spine. 2. Nonobstructing right nephrolithiasis. Electronically authenticated by: PRIMO GALE Date: 2022-04-09 17:10 Normal [facility] CT ABDOMEN AND PELVIS W/O CO NTRASTon 04-25-2018 CT ABDOMEN AND PELVIS W/O CONTRAST Performed at [facility] APPROVED BY: JOSE CRUZ HOLLEY MD Addendum Begins* * * * * * * * ORIGINAL REPORT * * * * * * * *EXAMINATION: CT ABDOMEN AND PELVIS WITHOUT IV CONTRAST HISTORY: ER adult presented with left lower abdominal/ flank pain started at 00:30. In addition, the patient has nausea vomiting, suspecting kidney stone. TECHNIQUE: Non-IV contrast imaging of the abdomen and pelvis was performed using standard technique, scanning from just above the dome of the diaphragm to the symphysis pubis. Unenhanced imaging is limited for the evaluation of some intra-abdominal and pelvic pathology.MQ: CTAPWO_3 Contrast:No IV contrast is administered. : ml of CT Radiation dose: Integrated Dose-length product (DLP) for this visit = 970 mGy*cm.CT Dose Reduction Employed: Automated exposure control. COMPARISON: None. RESULT: Limitations: Motion artifacts. The lack of the IV contrast is limiting the assessment for focal lesions in the solid organs such as liver, spleen, pancreas and kidneys. LOWER CHEST:The heart size is normal. No pericardial effusion. There is a small hiatal hernia containing part of the gastric fundus.No focal consolidation, pneumothorax or pleural effusion. ABDOMEN: Liver: The liver parenchyma appear homogeneous. 1.2 cm, partially exophytic, partially calcified lesion seen along the posterior surface of the liver (image 51/series 2). This cannot be characterized but likely solid and further imaging with MRI is recommended. Biliary/gallbladder: No definite biliary dilatation. The gallbladder appears unremarkable. Spleen: The spleen appears homogeneous and normal in size. Pancreas: The pancreas appears homogeneous with no gross enlargement. No secondary findings to suggest acute pancreatitis. Adrenals: No masses detected. Kidneys/ureters/bladder: There are small fluid and stranding of the left periureteric fat and left perinephric fat with mild left hydronephrosis and dilatation of the left ureter apparently caused by obstructing stone in the distal left ureter measuring approximately 3 mm and is approximately 2 cm proximal to the UVJ. There are bilateral nonobstructing stones in the renal collecting systems, the largest on the right measures approximately 4.4 mm. The largest on the left measures 3 mm. There is 1.7 cm, low attenuating, lesion at the midzone of the left kidney with pixel density close to water consistent with a cyst. No right hydronephrosis or obstructing stones in the right ureter.The bladder is moderately filled with no intraluminal stones. GI tract: The bowel loops are normal in caliber. No evidence of bowel obstruction or suspicious wall thickening. Fat-containing umbilical hernia with no evidence of bowel containing abdominal wall or inguinal hernia. The appendix is normal. No intra-abdominal free air. A few colonic diverticula noted with no CT evidence of acute diverticulitis. Lymph nodes: No enlarged abdominal or pelvic lymphadenopathy. Mesentery/Peritoneum: No free fluid or definite mass. Vasculature: The IVC and abdominal aorta are normal in caliber. Calcified atherosclerotic aortic plaques noted in the abdominal aorta with no aneurysmal dilatation. Bones/Soft Tissues: There is anterolisthesis of L4 over L5 with associated facet arthrosis and bulging disc disease causing central canal narrowing. In addition, bulging disc osteophyte complex noted at L3-L4 and L5-S1. There is hemangioma at T9. No definite compression deformities. No definite acute fracture lucency. PELVIS: No gross enlargement of the prostate. IMPRESSION: Acute left obstructive uropathy caused by obstructing stone in the distal right ureter measuring approximately 3 mm and causing mild right hydroureteronephrosis. Bilateral, nonobstructive, nephrolithiasis. No acute appendicitis, bowel obstruction or intra-abdominal free air. Incidental finding: Please consider multiphase MRI to assess the right hepatic lesion as described above. Please review the detailed report for complete information.* * * * * * * * ADDENDUM #1 * * * * * * * *ADDENDUM TO CORRECT TYPING ERROR: IMPRESSION: Acute left obstructive uropathy caused by obstructing stone in the distal left ureter measuring approximately 3 mm and causing mild left hydroureteronephrosis.Adden dum EndsEXAMINATION: CT ABDOMEN AND PELVIS WITHOUT IV CONTRAST HISTORY: ER adult presented with left lower abdominal/ flank pain started at 00:30. In addition, the patient has nausea vomiting, suspecting kidney stone. TECHNIQUE: Non-IV contrast imaging of the abdomen and pelvis was performed using standard technique, scanning from just above the dome of the diaphragm to the symphysis pubis. Unenhanced imaging is limited for the evaluation of some intra-abdominal and pelvic pathology.MQ: CTAPWO_3 Contrast:No IV contrast is administered. : ml of CT Radiation dose: Integrated Dose-length product (DLP) for this visit = 970 mGy*cm.CT Dose Reduction Employed: Automated exposure control. COMPARISON: None. RESULT: Limitations: Motion artifacts. The lack of the IV contrast is limiting the assessment for focal lesions in the solid organs such as liver, spleen, pancreas and kidneys. LOWER CHEST:The heart size is normal. No pericardial effusion. There is a small hiatal hernia containing part of the gastric fundus.No focal consolidation, pneumothorax or pleural effusion. ABDOMEN: Liver: The liver parenchyma appear homogeneous. 1.2 cm, partially exophytic, partially calcified lesion seen along the posterior surface of the liver (image 51/series 2). This cannot be characterized but likely solid and further imaging with MRI is recommended. Biliary/gallbladder: No definite biliary dilatation. The gallbladder appears unremarkable. Spleen: The spleen appears homogeneous and normal in size. Pancreas: The pancreas appears homogeneous with no gross enlargement. No secondary findings to suggest acute pancreatitis. Adrenals: No masses detected. Kidneys/ureters/bladder: There are small fluid and stranding of the left periureteric fat and left perinephric fat with mild left hydronephrosis and dilatation of the left ureter apparently caused by obstructing stone in the distal left ureter measuring approximately 3 mm and is approximately 2 cm proximal to the UVJ. There are bilateral nonobstructing stones in the renal collecting systems, the largest on the right measures approximately 4.4 mm. The largest on the left measures 3 mm. There is 1.7 cm, low attenuating, lesion at the midzone of the left kidney with pixel density close to water consistent with a cyst. No right hydronephrosis or obstructing stones in the right ureter.The bladder is moderately filled with no intraluminal stones. GI tract: The bowel loops are normal in caliber. No evidence of bowel obstruction or suspicious wall thickening. Fat-containing umbilical hernia with no evidence of bowel containing abdominal wall or inguinal hernia. The appendix is normal. No intra-abdominal free air. A few colonic diverticula noted with no CT evidence of acute diverticulitis. Lymph nodes: No enlarged abdominal or pelvic lymphadenopathy. Mesentery/Peritoneum: No free fluid or definite mass. Vasculature: The IVC and abdominal aorta are normal in caliber. Calcified atherosclerotic aortic plaques noted in the abdominal aorta with no aneurysmal dilatation. Bones/Soft Tissues: There is anterolisthesis of L4 over L5 with associated facet arthrosis and bulging disc disease causing central canal narrowing. In addition, bulging disc osteophyte complex noted at L3-L4 and L5-S1. There is hemangioma at T9. No definite compression deformities. No definite acute fracture lucency. PELVIS: No gross enlargement of the prostate. IMPRESSION: Acute left obstructive uropathy caused by obstructing stone in the distal right ureter measuring approximately 3 mm and causing mild right hydroureteronephrosis. Bilateral, nonobstructive, nephrolithiasis. No acute appendicitis, bowel obstruction or intra-abdominal free air. Incidental finding: Please consider multiphase MRI to assess the right hepatic lesion as described above. Please review the detailed report for complete information. Normal [facility] Comprehensive Panelon 2017 Albumin 4.3 g/dL Normal 3.4-5.[address] [facility] Comment on above: Performed By: #### S P14 ####[place] [address] Alkaline phosphatase (ALP) 87 U/L Normal 46-[address] [facility] Comment on above: Performed By: #### S P14 ####[place] [address] ALT-SGPT Blood 38 U/L Normal 12-[address] [facility] Comment on above: Performed By: #### S P14 ####[place] [address] Anion gap 13 mmol/L Normal 8-[address] [facility] Comment on above: Performed By: #### S P14 ####[place] [address] AST-SGOT Blood 22 U/L Normal 15-[address] [facility] Comment on above: Performed By: #### S P14 ####[place] [address] Bilirubin Ql (U) 0.9 mg/dL Normal 0.2-1.[address] [facility] Comment on above: Performed By: #### S P14 ####[place] [address] BUN (urea nitrogen) 20 mg/dL High 7-[address] [facility] Comment on above: Performed By: #### S P14 ####[facility] [place] [address] Calcium 9.0 mg/dL Normal 8.5-10.[address] [facility] Comment on above: Performed By: #### S P14 ####[facility] [place] [address] Chloride 104 mmol/L Normal 98-[address] [facility] Comment on above: Performed By: #### S P14 ####[facility] [place] [address] CO2 24 mmol/L Normal 21-[address] [facility] Comment on above: Performed By: #### S P14 ####[place] [address] Creatinine 0.93 mg/dL Normal 0.67-1.[address] [facility] Comment on above: Performed By: #### S P14 ####[place] [address] Glucose mass conc 142 mg/dL High 70-[address] [facility] Comment on above: Performed By: #### S P14 ####[place] [address] Potassium molar conc 3.8 mmol/L Normal 3.5-5.1 [facility] Comment on above: Performed By: #### S P14 ####[place] [address] Protein 7.4 g/dL Normal 6.4-8.[address] [facility] Comment on above: Performed By: #### S P14 ####[place] [address] Sodium 137 mmol/L Normal 136-[address] [facility] Comment on above: Performed By: #### S P14 ####[place] [address] ED NOTEon 04-25-2018 ED NOTE HNO ID: [id number] Author: Minerva GarciaRn) KATHE Zepeda Service: Emergency Medicine Author Type: Registered Nurse Type: ED Notes Filed: 04/25/2018 5:51 AM Note Text: Voided 150 cc light yellow urine which was strained: no stone noted Normal [facility] ED NOTE HNO ID: [id number] Author: Minerva (Rn) KATHE Zepeda Service: Emergency Medicine Author Type: Registered Nurse Type: ED Notes Filed: 04/25/2018 3:34 AM Note Text: Patient returned to the Emergency Department. Normal [facility] ED NOTE HNO ID: [id number] Author: Valentine (Rn) KATHE Stratton Service: Emergency Medicine Author Type: Registered Nurse Type: ED Notes Filed: 04/25/2018 3:30 AM Note Text: Patient transported to ct/cart Normal [facility] ED NOTE HNO ID: [id number] Author: Valentine (Rn) KATHE Stratton Service: Emergency Medicine Author Type: Registered Nurse Type: ED Notes Filed: 04/25/2018 3:21 AM Note Text: Warm b lanket given, labs drawn with IV start AND sent, medicated for paIN PER ORDER [facility] ED NOTE HNO ID: [id number] thor: Minerva (Rn) DIEGO Zepedaervice: Emergency MedicineAuthor Type: Registered NurseType: ED NotesFiled: 04/25/2018 2:55 AMNote Text:c/o pain left lower abdomen that began around 12:30 AM-- pain woke pt upand is assoc with nausea. Vomited small amt food particles upon arrival toed [facility] ED PROV NOTEon 04-25-2018 ED PROV NOTE HNO ID: [id number] thor: STEPHANIE Gillervice: Emergency MedicineAuthor Type: PhysicianType: ED Provider NotesFiled: 04/25/2018 6:48 AMNote Text:ED Provider NotePatient Name: Valentin TorreMRN: [id number] DATE: 04/25/18HistoryPatient presents with:Abdominal PainPatient is a 63-year-old white male that presents with a chief complaintof acute onset of left lower quadrant abdominal pain that woke him fromsleep at around 12:30 in the morning. He had vomiting at home and hasnausea and vomiting here vomiting a small amount of food particles uponarrival to the room. He complains of no fevers or chills. He states hehad a kidney stone before but never caused any issues like this with thepain in the front. The pain is 10 out of 10 and unrelenting. There is noposition that makes him more comfortable.PAST MEDICAL HISTORYDiagnosis Date- Degenerative disc disease, cervical- H/O eye surgery removal cancerous growth- Hearing loss 75% rt ear , 35% left ear- Kidney stones- Perforated ear drum, bilateral- Squamous cell carcinoma in situ (SCCIS) of skinPAST SURGICAL HISTORYProcedure Laterality Date- ORTHOPEDICS SURGERY HX lt knee replacement , scope x 3 rt kneeNo family history on file.Social HistorySocial History Main Topics- Smoking status: Former Smoker- Smokeless tobacco: Never Used- Alcohol use No- Drug use: Unknown- Sexual activity: Not on fileALLERGIESAllergen Reactions- Bufferin [Aspirin, * GI Upset- Keflex [Cephalexin] Unknown- Oxycodone Mental Status Change- Sulfa (Sulfonamide * RashReview of SystemsAll other systems reviewed and are negative.Physical ExamBP 148/77 Pulse 69 Temp (Src) 97.5 (Oral) Resp 16 Ht 5' 8 (1.73m) Wt 210 lb (95.3kg) SpO2 94% BMI 31.94 kg/(m2).Physical ExamConstitutional: He is oriented to person, place, and time. He appearswell-developed and well-nourished.Patient appears to be in a severe amount of distress secondary to pain.HENT:Head: Normocephalic and atraumatic.Eyes: EOM are normal. Pupils are equal, round, and reactive to light.Neck: Normal range of motion. Neck supple.Cardiovascular: Intact distal pulses.Abdominal: Soft. Bowel sounds are normal.Patient has no pulsatile masses on exam. He does have left lower quadranttenderness to palpation.Musculoskeletal: Normal range of motion. He exhibits no edema.Neurological: He is alert and oriented to person, place, and time.Skin: Skin is warm and dry.Psychiatric: He has a normal mood and affect. His behavior is normal.Nursing note and vitals reviewed.Diagnostic TestingED Labs Ordered and ReviewedCOMPREHENSIVE METABOLIC PANEL (AK,AV,EU,FV,HL,KUSH,MM,SP) - Abnormal;Notable for the following: Result Value Ref Range Glucose 142 (*) 70 - 99 mg/dL BUN 20 (*) 7 - 18 mg/dL All other components within normal limitsCBC + AUTO DIFF (AK,AV,EU,FV,HL,KUSH,MM,SP) - Abnormal; Notable for thefollowing: WBC 12.0 (*) 4.4 - 9.7 thou/cmm Abs. Neut(Anc) 10.24 (*) 1.35 - 7.21 thou/cmm Abs. Moffat 0.84 (*) 0.19 - 0.80 thou/cmm All other components within normal limitsLIPASE BLOOD (AK,AV,EU,FV,HL,KUSH,MM,SP)MD OLIVARES GFRProceduresMedical Decision MakingMDMHe should history and physical examination consistent with left-sidedureteral calculus. It's also possible that he has a diverticulitis giventhe location of pain and tenderness on exam although I wouldn't anticipatethat would start this quickly. An IV was established and labs were drawn. He was given a liter normal saline bolus, morphine 4 mg IV push, andZofran 4 mg IV push. After noncontrast CT his pain was still a 9 out of10 and he was given Dilaudid 1 mg IV push which improved his pain to a 5out of 10.Once his renal function came back as normal and given Toradol 30 mg IVpush as I had looked at the CT scan myself and saw that he had what I feltto be approximately 4 mm stone near the left UVJ. There was a significantdelay in the patient's disposition due to a problem with the reading ofthe CT scan. The CT result finally returned and showedAcute left obstructive uropathy caused by obstructing stone in the distalrightureter measuring approximately 3 mm and causing mild righthydroureteronephrosis. Bilateral, nonobstructive, nephrolithiasis.No acute appendicitis, bowel obstruction or intra-abdominal free air.Incidental finding: Please consider multiphase MRI to assess the righthepaticlesionAt this point the patient was pain-free. I discussed the hepatic lesionand ordered that he receive Flomax 0.4 mg by mouth here. He was given aprescription for Flomax, Vicodin, and Zofran. He is to follow up withurology as an outpatient. They're from [place] and he will follow-upwith the urologist there. He was discharged home in improved condition.He is happy with his care and comfortable with the plan.ED Course / Clinical ImpressionClinical Impressions as of Apr 25 647Ureteral calculus, leftHydronephrosis with urinary obstruction due to renal calculusPlanSIGNATURE: Jose De Jesus Gill MD04/25/18 0648 Normal [facility] Hemogram/Diffon 04-25-2018 Abs. Baso 0.02 thou/cmm Normal 0.00-0.[address] [facility] Comment on above: Performed By: #### S CBCD ####[address] [address] Abs. Moffat 0.84 thou/cmm High 0.19-0.[address] [facility] Comment on above: Performed By: #### S CBCD ####[address] [address] Abs. Neut (ANC) 10.24 thou/cmm High 1.35-7.[address] [facility] Comment on above: Performed By: #### S CBCD ####[address] [address] Basophils/100 WBC Auto (Bld) 0.2 % Normal [facility] Comment on above: Performed By: #### S CBCD ####[address] [address] Eosinophils 0.04 thou/cmm Normal 0.00-0.[address] [facility] Comment on above: Performed By: #### S CBCD ####[address] [address] Eosinophils/100 leukocytes 0.3 % Normal [facility] Comment on above: Performed By: #### S CBCD ####[address] [address] Erythrocyte distribution width Auto Ratio (RBC) 13.7 % Normal 11.8-14.[address] [facility] Comment on above: Performed By: #### S CBCD ####[address] [address] Erythrocytes (RBC) 5.26 mil/cmm Normal 4.22-5.80 [facility] Comment on above: Performed By: #### S CBCD ####[place] [address] Hematocrit (HCT) 47.0 % Normal 39.6-50.[address] [facility] Comment on above: Performed By: #### S CBCD ####[place] [address] Hemoglobin mass conc (Bld) 16.2 g/dL Normal 13.2-17.[address] [facility] Comment on above: Performed By: #### S CBCD ####[place] [address] Lymphocytes 0.83 thou/cmm Normal 0.68-2.[address] [facility] Comment on above: Performed By: #### S CBCD ####[place] [address] Lymphocytes/100 leukocytes 6.9 % Normal [facility] Comment on above: Performed By: #### S CBCD ####[place] [address] MCH 30.8 pg Normal 27.4-32.[address] [facility] Comment on above: Performed By: #### S CBCD ####[place] [address] MCHC mass conc (RBC) 34.5 % Normal 31.9-35.6 [facility] Comment on above: Performed By: #### S CBCD ####[place] [address] MCV 89.4 fL Normal 81.8-95.[address] [facility] Comment on above: Performed By: #### S CBCD ####[place] [address] Monocytes/100 leukocytes 7.0 % Normal [facility] Comment on above: Performed By: #### S CBCD ####[place] [address] Platelet mean volume (PMV) 10.1 fL Normal 8.8-12.[address] [facility] Comment on above: Performed By: #### S CBCD ####[facility] [place], [place] [address] Platelets 169 thou/cmm Normal 150-[address] [facility] Comment on above: Performed By: #### S CBCD ####[address] [address] Seg Neutrophil 85.6 % Normal [facility] Comment on above: Performed By: #### S CBCD ####[address] [address] WBC (Leukocytes) 12.0 thou/cmm High 4.4-9.[address] [facility] Comment on above: Performed By: #### S CBCD ####[address] [address] Lipase Bloodon 04-25-2018 Lipase Blood 155 U/L Normal 73-[address] [facility] Comment on above: Performed By: #### S LIP ####[address] [address] MDRD eGFRon 04-25-2018 eGFR (non-black) mL/min/{1.73_m2} Normal >60mL/m in/ 1.73m2 [facility] Comment on above: Result Comment: If t he patient is , multiply the result by 1.210. Performed By: #### S GFR ####[address] [address] Urinalysis Routineon 018 Bilirubin Urine Negative Normal Negative [facility] Comment on above: Performed By: #### S URIN ####[address] [address] Ep Cells Urine NONE Normal 0-[address] [facility] Comment on above: Performed By: #### S URIN ####[address] [address] Hemoglobin,Urine TRACE-INTACT Abnormal Negative [facility] Comment on above: Performed By: #### S URIN ####[address] [address] Ketone Urine 15 mg/dL Abnormal Negative [facility] Comment on above: Performed By: #### S URIN ####[facility] [place], [place] [address] Nitrites Urine Negative Normal Negative [facility] Comment on above: Performed By: #### S URIN ####[facility] [place], [place] [address] Protein Urine Negative Normal Negative [facility] Comment on above: Performed By: #### S URIN ####[facility] [place], [place] [address] Specific [place], Ur 1.020 Normal 1.005-1 .[address] [facility] Comment on above: Performed By: #### S URIN ####[address] [address] Urine, appearance CLEAR Normal [facility] Comment on above: Performed By: #### S URIN ####[address] [address] Urine, bacteria in sediment NONE Normal None [facility] Comment on above: Performed By: #### S URIN ####[address] [address] Urine, color YELLOW Normal [facility] Comment on above: Performed By: #### S URIN ####[address] [address] Urine, erythrocytes in sediment by area 7-12 Normal 0-[address] [facility] Comment on above: Performed By: #### S URIN ####[address] [address] Urine, glucose presence Negative Normal Negative [facility] Comment on above: Performed By: #### S URIN ####[address] [address] Urine, leukocytes in sedmiment 0-2 Normal 0-[address] [facility] Comment on above: Performed By: #### S URIN ####[address] [address] Urine, pH 7.0 [pH] Normal 5.0-8.[address] [facility] Comment on above: Performed By: #### S URIN ####[place] [address] [place], [place] [address] Urobilinogen,Ur 0.2 EU/dL Normal 0.0-1.0 [employer] [facility] Comment on above: Performed By: #### S URIN ####[facility] [place], [place] [address] WBC (Leukocytes) Negative Normal Negative [facility] Comment on above: Performed By: #### S URIN ####[facility] [place], [place] [address] Vital Signs Date Time Vital Sign Value Performing Clinician Facility 02-09-2024 13:46-0400 Body height 172.72 cm DO [employer] Work Phone: [facility] 02-09-2024 13:46-0400 Body mass index (BMI) [Ratio] 32.3 kg/m2 DO Sascha Vertascaleng Work Phone: [facility] 02-09-2024 13:46-0400 Body weight 96.61 kg DO Sascha [employer] Work Phone: [facility] 01-02-2024 23:55-0500 Body height 172.72 cm DO Sascha [employer] Work Phone: [facility] 01-02-2024 23:55-0500 Body temperature 97.4 [degF] DO Sascha [employer] Work Phone: [facility] 01-02-2024 23:55-0500 Body weight 100.3 kg DO Sascha [employer] Work Phone: [facility] 01-02-2024 23:55-0500 Diastolic blood pressure 100 mm[Hg] DO Sascha [employer] Work Phone: [facility] 01-02-2024 23:55-0500 Heart rate 74 /min DO Sascha [employer] Work Phone: [facility] 01-02-2024 23:55-0500 Respiratory rate 20 /min DO [employer] Work Phone: [facility] 01-02-2024 23:55-0500 SaO2% (BldA) [Mass fraction] 96 % DO Sascha Furlong Work Phone: [facility] 01-02-2024 23:55-0500 Systolic blood pressure 155 mm[Hg] DO Sascha Furlong Work Phone: [facility] 12-30-2023 09:40-0500 Body height 172.72 cm [employer] Other [employer] Other 12-30-2023 09:40-0500 Body mass index (BMI) [Ratio] 32.99 kg/m2 [employer] Other [employer] Other 12-30-2023 09:40-0500 Body weight 98.43 kg [employer] Other [employer] Other 12-14-2023 09:34-0500 Body height 172.7 cm Sascha Furlong DO Work Phone: [email or web address] 12-14-2023 09:34-0500 Body mass index (BMI) [Ratio] 33.49 kg/m2 Sascha Furlong DO Work Phone: [email or web address] 12-14-2023 09:34-0500 Body temperature 97.59 [degF] Sascha Furlong DO Work Phone: [email or web address] 12-14-2023 09:34-0500 Body weight 99.88 kg Sascha Furlong DO Work Phone: [email or web address] 12-14-2023 09:34-0500 Diastolic blood pressure 68 mm[Hg] Sascha Furlong DO Work Phone: [employer] 12-14-2023 09:34-0500 Heart rate 75 /min Sascha Furlong DO Work Phone: [facility] 12-14-2023 09:34-0500 Respiratory rate 20 /min Sascha Furlong DO Work Phone: [facility] 12-14-2023 09:34-0500 SaO2% (BldA) [Mass fraction] 96 % Sascha Furlong DO Work Phone: [facility] 12-14-2023 09:34-0500 Systolic blood pressure 122 mm[Hg] Sascha Furlong DO Work Phone: [facility] 09-19-2023 09:39-0400 Blood Pressure Location Zac MUNIZ [facility] 09-19-2023 09:39-0400 Diastolic blood pressure 77 mm[Hg] Zac MUNIZ [facility] 09-19-2023 09:39-0400 Heart rate 64 /min Zac MUNIZ [facility] 09-19-2023 09:39-0400 Respiratory rate 16 /min Zac MUNIZ [facility] 09-19-2023 09:39-0400 Systolic blood pressure 126 mm[Hg] Zac MUNIZ [facility] 05-18-2023 09:00-0400 Body weight 20 mg DO Sascha Furlong Work Phone: [facility] 05-09-2023 10:34-0400 Body height 172.72 cm Sascha G Furlong Work Phone: [facility] 250 DO Work Phone: 05-09-2023 10:34-0400 Body mass index (BMI) [Ratio] 32.54 kg/m2 Sascha G Furlong Work Phone: [facility] [employer] DO Work Phone: 05-09-2023 10:34-0400 Body surface area Derived from formula 2.1 m2 Sascha G Furlong Work Phone: [facility] [employer] DO Work Phone: 05-09-2023 10:34-0400 Body weight 97.07 kg Sascha G Furlong Work Phone: [facility] [employer] DO Work Phone: 05-09-2023 10:34-0400 Diastolic blood pressure 60 mm[Hg] Sascha G Furlong Work Phone: [facility] [employer] 250 DO Work Phone: 05-09-2023 10:34-0400 Heart rate 78 /min Sascha Teagan Furlong Work Phone: [facility] [employer] DO Work Phone: 05-09-2023 10:34-0400 Systolic blood pressure 88 mm[Hg] Sascha Teagan Furlong Work Phone: [facility] [employer] DO Work Phone: 05-07-2023 19:59-0400 Diastolic blood pressure 67 mm[Hg] DO Sascha Furlong Work Phone: [facility] 05-07-2023 19:59-0400 Heart rate 68 /min DO Sascha Furlong Work Phone: [facility] 05-07-2023 19:59-0400 Respiratory rate 18 /min DO Sascha Furlong Work Phone: [facility] 05-07-2023 19:59-0400 SaO2% (BldA) [Mass fraction] 96 % DO Sascha Furlong Work Phone: [facility] 05-07-2023 19:59-0400 Systolic blood pressure 122 mm[Hg] DO Sascha Furlong Work Phone: [facility] 05-07-2023 18:27-0400 Body height 172.72 cm DO Sascha Furlong Work Phone: [facility] 05-07-2023 18:27-0400 Body temperature 99 [degF] DO Sascha Furlong Work Phone: [facility] 05-07-2023 18:27-0400 Body weight 94.95 kg DO Sascha Furlong Work Phone: [facility] 05-03-2023 05:30-0400 Diastolic blood pressure 60 mm[Hg] DO Sascha Furlong Work Phone: [facility] 05-03-2023 05:30-0400 Heart rate 74 /min DO Sascha Furlong Work Phone: [facility] 05-03-2023 05:30-0400 Respiratory rate 18 /min DO Sascha Furlong Work Phone: [facility] 05-03-2023 05:30-0400 SaO2% (BldA) [Mass fraction] 96 % DO Sascha Furlong Work Phone: [facility] 05-03-2023 05:30-0400 Systolic blood pressure 101 mm[Hg] DO Sascha Furlong Work Phone: [facility] 05-03-2023 02:29-0400 Body height 172.72 cm DO Sascha Furlong Work Phone: [facility] 05-03-2023 02:29-0400 Body temperature 97.9 [degF] DO Sascha Furlong Work Phone: [facility] 05-03-2023 02:29-0400 Body weight 97.52 kg DO Sascha Furlong Work Phone: [facility] 04-04-2023 15:54-0400 Diastolic blood pressure 55 mm[Hg] DO Sascha Furlong Work Phone: [facility] 04-04-2023 15:54-0400 Heart rate 54 /min DO Sascha Furlong Work Phone: [facility] 04-04-2023 15:54-0400 Respiratory rate 16 /min DO Sascha Furlong Work Phone: [facility] 04-04-2023 15:54-0400 SaO2% (BldA) [Mass fraction] 95 % DO Sascha Furlong Work Phone: [facility] 04-04-2023 15:54-0400 Systolic blood pressure 98 mm[Hg] DO Sascha Furlong Work Phone: [facility] 04-04-2023 09:55-0400 Body height 172.72 cm DO Sascha Furlong Work Phone: [facility] 04-04-2023 09:55-0400 Body temperature 97.5 [degF] DO Sascha Furlong Work Phone: [facility] 04-04-2023 09:55-0400 Body weight 98.7 kg DO Sascha Furlong Work Phone: [facility] 03-30-2023 11:00-0400 Body height 172.72 cm Sascha G Furlong Work Phone: [facility] [employer] 250 DO Work Phone: 03-30-2023 11:00-0400 Body mass index (BMI) [Ratio] 32.99 kg/m2 Sascha G Furlong Work Phone: [facility] [employer] DO Work Phone: 03-30-2023 11:00-0400 Body surface area Derived from formula 2.12 m2 Sascha G Furlong Work Phone: [facility] [employer] DO Work Phone: 03-30-2023 11:00-0400 Body weight 98.43 kg Sascha Candelaria Furlong Work Phone: [facility] 250 DO Work Phone: 03-30-2023 11:00-0400 Diastolic blood pressure 70 mm[Hg] Sascha G Furlong Work Phone: [facility] [employer] DO Work Phone: 03-30-2023 11:00-0400 Diastolic blood pressure 82 mm[Hg] Sascha G Furlong Work Phone: [facility] [employer] DO Work Phone: 03-30-2023 11:00-0400 Heart rate 63 /min Sascha Candelaria Furlong Work Phone: [facility] [employer] DO Work Phone: 03-30-2023 11:00-0400 Systolic blood pressure 126 mm[Hg] Sascha Candelaria Furlong Work Phone: [facility] [employer] DO Work Phone: 03-30-2023 11:00-0400 Systolic blood pressure 134 mm[Hg] Sascha Candelaria Furlong Work Phone: [facility] [employer] DO Work Phone: 03-24-2023 11:00-0400 54 1 Sascha Candelaria Furlong Work Phone: [facility] [employer] 250 DO Work Phone: Comment on above: [id number] Encounters Encounter Date Encounter Type Care Provider Facility Start: 03-23-2024 ambulatory Zac Carey ty:[facility] Start: 02-16-2024 ambulatory Zac Carey ty:[id number] Start: 02-09-2024 End: 02-09-2024 ambulatory DO Sascha Furlong Work Phone: [facility] Work Phone: Start: 02-09-2024 End: 02-09-2024 Patient encounter procedure DO Sascha Furlong Work Phone: [facility] Work Phone: Start: 01-23-2024 ambulatory SASCHA G FURLONG [facility] Start: 01-18-2024 End: 01-19-2024 ambulatory Zac MUNIZ Facility:[facility] Start: 01-18-2024 End: 01-18-2024 Lab Drop off Zac MUNIZ [facility] Start: 01-18-2024 End: 01-19-2024 ambulatory Zac MUNIZ Facility: [facility] Start: 01-18-2024 End: 01-18-2024 Patient encounter procedure Zac MUNIZ [facility] Start: 01-11-2024 End: 01-11-2024 ambulatory Zac Muniz Facility:[facility] Start: 01-11-2024 End: 01-11-2024 ambulatory DO Sascha Furlong Work Phone: [facility] Work Phone: Start: 01-11-2024 End: 01-11-2024 Patient encounter procedure DO Sacsha Furlong Work Phone: [facility] [place] Work Phone: Start: 01-10-2024 End: 01-10-2024 ambulatory Мария Hernandez Facility:[facility] Start: 01-10-2024 End: 01-10-2024 ambulatory DO Sascha Furlong Work Phone: [facility] Work Phone: Start: 01-10-2024 End: 01-10-2024 Patient encounter procedure DO Sascha Furlong Work Phone: [facility] [place] Work Phone: Start: 01-03-2024 End: 01-03-2024 Emergency department patient visit Edenilson Reinoso Jr Facility:[facility] Start: 01-02-2024 End: 01-03-2024 Emergency department patient visit DO Sascha Furlong Work Phone: [facility]Emergency Room Work Phone: Start: 12-30-2023 Office outpatient ne w [address] [facility] Start: 12-30-2023 End: 12-30-2023 ambulatory Мария Hernandez Facility:[facility] Start: 12-30-2023 End: 12-30-2023 ambulatory DO Sascha Furlong Work Phone: [facility] Work Phone: Start: 12-30-2023 End: 12-30-2023 Patient encounter procedure DO Sascha Furlong Work Phone: [facility] [place] Work Phone: Start: 12-28-2023 End: 12-28-2023 ambulatory ZAIRA CAIN Not Available Start: 12-28-2023 Chart abstracting Zaira pandya DPM Work Phone: [facility] Start: 12-28-2023 End: 12-28-2023 Office outpatient visit 15 minutes Zaira Cain DPM Work Phone: [facility] Comment on above: Pronation deformity of both feet (Primary Dx); Chronic pain of both knees Start: 12-22-2023 End: 01-20-2024 ambulatory [facility] Start: 12-19-2023 End: 12-22-2023 ambulatory [facility] Start: 12-15-2023 End: 12-15-2023 ambulatory Sascha Furlong Facility:[facility] Start: 12-15-2023 End: 12-15-2023 ambulatory DO Sascha Furlong Work Phone: [facility] Work Phone: Start: 12-15-2023 End: 12-15-2023 Patient encounter procedure DO Saschaabelardo Marielong Work Phone: [facility] [place] Work Phone: Start: 12-14-2023 End: 12-15-2023 ambulatory [place] Teagan [facility] Start: 12-14-2023 End: 12-14-2023 ambulatory [facility] Start: 12-14-2023 End: 12-14-2023 Office outpatient visit 25 minutes Sascha Sutton DO Work Phone: [facility] Comment on above: Essential hypertensi on (Primary Dx); Hyperlipidemia, unspecified hyperlipidemia type; Midline low back pain without sciatica, unspecified chronicity; Class 1 obesity due to excess calories with serious comorbidity and body mass index (BMI) of 33.0 to 33.9 in adult; 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[facility]); Antiphospholipid syndrome ([facility]); Cubital tunnel syndrome on right; Paresthesias Start: 12-08-2023 End: 12-08-2023 ambulatory DO Sascha Furlong Work Phone: [facility] Work Phone: Start: 12-08-2023 End: 12-08-2023 Patient encounter procedure DO Saschaabelardo Marielong Work Phone: [facility] [address] Work Phone: Start: 10-20-2023 End: 10-20-2023 ambulatory Sascha Furlong Facility:[facility] Start: 10-20-2023 End: 10-20-2023 ambulatory DO Sascha Furlong Work Phone: [facility] Work Phone: Start: 10-20-2023 End: 10-20-2023 Patient encounter procedure DO Sascha Furlong Work Phone: [facility] [place] Work Phone: Start: 09-19-2023 End: 09-20-2023 ambulatory Zac MUNIZ Facility:[facility] Start: 09-19-2023 End: 09-19-2023 Patient encounter procedure Zac MUNIZ [facility] Start: 09-12-2023 End: 09-12-2023 ambulatory Sascha Furlong Facility:[facility] Start: 09-12-2023 End: 09-12-2023 ambulatory DO Sascha Furlong Work Phone: [facility] Work Phone: Start: 09-12-2023 End: 09-12-2023 Patient encounter procedure DO Sascha Furlong Work Phone: [facility] [place] Work Phone: Start: 09-05-2023 End: 09-05-2023 ambulatory Romel Davis Facility:[facility] Start: 09-05-2023 End: 09-05-2023 ambulatory DO Sascha Furlong Work Phone: [facility] Work Phone: Start: 09-05-2023 End: 09-05-2023 Patient encounter procedure DO Sascha Furlong Work Phone: [facility] [address] Work Phone: Start: 08-16-2023 End: 08-16-2023 ambulatory Zac Muniz Facility:[facility] Start: 08-16-2023 End: 08-16-2023 ambulatory DO Sascha Furlong Work Phone: [facility] Work Phone: Start: 08-16-2023 End: 08-16-2023 Patient encounter procedure DO Sascha Furlong Work Phone: [facility] [place] Work Phone: Start: 08-08-2023 End: 08-09-2023 ambulatory Zac Alvino MUNIZ Facility:[facility] Start: 08-08-2023 End: 08-08-2023 Patient encounter procedure Zac MUNIZ [facility] Start: 08-04-2023 End: 08-04-2023 ambulatory Zac Muniz Facility:[facility] Start: 08-04-2023 End: 08-04-2023 ambulatory DO Sascha Furlong Work Phone: [facility] Work Phone: Start: 08-04-2023 End: 08-04-2023 Patient encounter procedure DO Sascha Furlong Work Phone: [facility] [place] Work Phone: Start: 06-03-2023 End: 06-04-2023 ambulatory Zac Alvino FLAVIO Facility: [facility] Start: 06-03-2023 End: 06-03-2023 Patient encounter procedure Zacgreyson MUNIZ [facility] Start: 05-31-2023 End: 05-31-2023 ambulatory Christine Sanchez Facility:[facility] Start: 05-31-2023 End: 05-31-2023 ambulatory DO Sascha Furlong Work Phone: [facility] Work Phone: Start: 05-31-2023 End: 05-31-2023 Patient encounter procedure DO Sascha Furlong Work Phone: [facility] [place] Work Phone: Start: 05-18-2023 End: 05-18-2023 ambulatory Zacgreyson Muniz Facility:[facility] Start: 05-18-2023 End: 05-18-2023 ambulatory DO Sascha Furlong Work Phone: [facility] Work Phone: Start: 05-18-2023 End: 05-18-2023 Patient encounter procedure DO Sascha Furlong Work Phone: [facility] [place] Work Phone: Start: 05-09-2023 End: 05-10-2023 ambulatory Zac MUNIZ Facility:[facility] Start: 05-09-2023 End: 05-09-2023 ambulatory Zac Muniz Facility:[facility] Start: 05-09-2023 Office outpatient vi sit 15 minutes Sascha G Furlong Work Phone: [facility] 250 DO Work Phone: Start: 05-09-2023 End: 05-09-2023 Patient encounter procedure DO Sascha Furlong Work Phone: [facility] [place] Work Phone: Start: 05-09-2023 End: 05-09-2023 ambulatory DO Sascha Furlong Work Phone: [facility] Work Phone: Start: 05-07-2023 End: 05-07-2023 Emergency department patient visit Romel Orta Facility:[facility] Start: 05-07-2023 End: 05-07-2023 Emergency department patient visit DO Sascha Furlong Work Phone: [facility] Work Phone: Start: 05-03-2023 End: 05-03-2023 Emergency department patient visit Edenilson Reinoso Jr Facility:[facility] Start: 05-03-2023 End: 05-03-2023 Emergency department patient visit DO Sascha Furlong Work Phone: [facility] Work Phone: Start: 04-13-2023 End: 04-13-2023 ambulatory Sascha Furlong Facility:[facility] Start: 04-13-2023 End: 04-13-2023 Patient encounter procedure DO Sascha Furlong Work Phone: [facility]Respiratory Therapy Work Phone: Start: 04-08-2023 End: 04-08-2023 ambulatory Sascha Furlong Facility:[facility] Start: 04-08-2023 End: 04-08-2023 Patient encounter procedure DO Sascha Furlong Work Phone: [facility] [place] Work Phone: Start: 04-04-[address] Alfonso Trujillo Facility:[id number] Start: 04-04-2023 End: 04-04-2023 ambulatory Sascha Furlong Facility:[facility] Start: 04-04-2023 End: 04-04-2023 Admission to same day surgery center DO Sascha Furlong Work Phone: [facility] Work Phone: Start: 04-04-2023 End: 04-04-2023 ambulatory DO Sascha Furlong Work Phone: [facility] Work Phone: Start: 03-31-2023 End: 03-31-2023 ambulatory Melanie Trujillo Facility:[facility] Start: 03-31-2023 End: 03-31-2023 ambulatory DO Sascha Furlong Work Phone: [facility] Work Phone: Start: 03-31-2023 End: 03-31-2023 Patient encounter procedure DO Sascha Furlong Work Phone: [facility] Work Phone: Start: 03-30-2023 Office consultation new/estab patient 80 min Sascha Candelaria Furlong Work Phone: -[facility] 250 DO Work Phone: Start: 03-30-[address] Alfonso Trujillo Facility: Start: 03-29-[address] [facility] Start: 03-20-2023 End: 03-22-2023 ambulatory SHAIKH Claritza MULATNI Facility: Start: 01-31-2023 End: 01-31-2023 ambulatory Christine Sanchez Facility:[facility] Start: 01-31-2023 End: 01-31-2023 ambulatory DO Sascha Furlong Work Phone: [facility] Work Phone: Start: 01-31-2023 End: 01-31-2023 Patient encounter procedure DO Sascha Furlong Work Phone: [facility] [address] Work Phone: Start: 10-26-2022 End: 10-26-2022 ambulatory DO Sascha Furlong Work Phone: [facility] Work Phone: Start: 10-26-2022 End: 10-26-2022 Patient encounter procedure DO Sascha Furlong Work Phone: [facility] [address] Start: 09-29-2022 End: 09-29-2022 ambulatory DO Sascha Furlong Work Phone: [facility] Work Phone: Start: 09-29-2022 End: 09-29-2022 Patient encounter procedure DO Sascha Furlong Work Phone: [facility] [place] Start: 07-21-2022 End: 07-21-2022 Patient encounter procedure DO Sascha Furlong Work Phone: [facility] [address] Start: 04-14-2022 End: 04-14-2022 Patient encounter procedure DO Sascha Furlong Work Phone: [facility] [address] Start: 04-09-2022 End: 04-09-[address] AUDIE GONZALES . Facility: Start: 04-25-2018 End: 04-25-2018 [facility] normal Sascha G F urlong Work Phone: [facility] 250 DO Work Phone: Procedures Date Procedure Procedure Detail Performing Clinician Start: 01-11-2024 Diagnostic radiography of abdomen DO Den nis Furlong Work Phone: Start: 01-10-2024 MRI of lumbar spine with contrast DO Den nis Furlong Work Phone: Start: 01-03-2024 CT of abdomen and pelvis without contrast DO Sascha Furlong Work Phone: Start: 12-30-2023 X-ray of cervical spine DO Saschaabelardo Marielon g Work Phone: Start: 12-30-2023 X-ray of lumbar spine, six views including bending views DO Sascha Furlong Work Phone: Start: 12-15-2023 X-ray of lumbar spine, two or three views DO Sascha Furlong Work Phone: Start: 12-14-2023 Adult depression screening assessment Sascha Furlong DO Work Phone: Start: 09-12-2023 Plain X-ray of right hip DO Sascha Furlo ng Work Phone: Start: 08-04-2023 Diagnostic radiography of abdomen DO Den nis Furlong Work Phone: Start: 05-09-2023 Diagnostic radiography of abdomen DO Den abelardo Marielong Work Phone: Start: 05-03-2023 CT of abdomen and pelvis without contrast DO Saschaabelardo Marielong Work Phone: Start: 04-04-2023 [facility] Angio DO Sascha Marielong Work Phone: Start: 09-29-2022 X-ray of left foot DO Sascha Marielong Work Phone: Start: 11-21-2016 Total colonoscopy Saschaabelardo Sutton Work Phone: Arthroplasty of knee Sascha Sutton Work Phone: Arthroplasty of knee Zac MUNIZ Arthroscopy of knee Zac MUNIZ Cleft palate (disorder) Patr ick MUNIZ Colonoscopy Zac MUNIZ Decompression of median nerve Sascha Sutton Work Phone: Decompression of median nerve Zac MUNIZ Dilation of esophagus Sascha Kwanng Work Phone: Esophagogastroduodenoscopy P blane MUNIZ Hernia repair Sascha Kwan ng Work Phone: Malignant neoplasm o f skin (disorder) Zac MUNIZ Operation on the ear Sascha Kwanng Work Phone: Operative procedure on knee Sascha Marielong Work Phone: Operative procedure on spinal structure Sascha G Cynthialong Work Phone: Procedure on shoulder Ronni k MUNIZ Procedure on spine Zacgreyson VENTURA Repair of cleft palate Garth Kwanng Work Phone: Repair of middle ear Sascha Sutton Work Phone: Repair of middle ear Zac FLAVIO Repair of shoulder Sascha Sutton Work Phone: Surgical procedure on eye proper Sascha Sutton Work Phone: Plan of Treatment Date Care Activity Detail Author Start: 05-20-2033 DTaP,Tdap and Td Vac cines (3 - Td or Tdap) DTaP,Tdap and Td Vaccines (3 - Td or Tdap) [facility] Start: 12-14-2024 Adult BMI Screening Adult BMI Screen ing [facility] Start: 12-14-2024 Depression Screening Depression Scre ening [facility] Start: 12-14-2024 Fall Risk Screening Fall Risk Screen ing [facility] Start: 12-14-2024 Tobacco Screening Tobacco Screening [facility] Start: 06-14-2024 End: 06-14-2024 Patient encounter procedure 06/14/2024 1:30 PM EDT Office Visit [facility] [address] [place] [address] Sascha Sutton, [address] [facility] [place] [address] [facility] Start: 05-01-2024 End: 05-01-2024 Patient encounter procedure 05/01/2024 10:20 AM EDT Office Visit [facility] [address] [place] [address] [facility] Start: 04-14-2024 Medicare Annual Well ness Visit Medicare Annual Wellness Visit [facility] Start: 01-25-2024 End: 01-25-2024 Patient encounter procedure 01/25/2024 11:15 AM EST Office Visit [facility] [address] [place] [address] Zaira Cain, DPM [address] [place] [address] [facility] Start: 01-10-2024 MRI of lumbar spine with contrast MR lumbar spine wo/w con [facility] Start: 01-03-2024 CT Abdomen and Pelvi s WO contrast [facility] Start: 01-03-2024 CT of abdomen and pe lvis without contrast CT abdomen pelvis wo [facility] Start: 12-28-2023 End: 12-28-2023 Patient encounter procedure 12/28/2023 2:00 PM EST Office Visit [facility] [address] [place] [address] Zaira Cain, DPM [address] [place] [address] [facility] Start: 12-14-2023 End: 12-14-2024 XR Lumbar spine 2 or 3 Views X-ray spine lumbar 2 or 3 views Imaging Routine Midline low back pain without sciatica, unspecified chronicity Expected: 12/14/2023, Expires: 12/14/2024 [facility] Work Phone: Comment on above: Expected: 12/14/2023 , Expires: 12/14/2024 Start: 12-08-2023 Hemolytic complement [facility] Start: 10-18-2023 COVID-19 Vaccine ( season) COVID-19 Vaccine ( season) [facility] [employer] Start: 09-05-2023 Hemolytic complement [facility] Start: 08-16-2023 [facility] Start: 05-31-2023 Hemolytic complement [facility] Start: 05-18-2023 [facility] Start: 05-12-2023 FUV, Provider: Alfonso Trujillo, Status: Dionisio, Time: 10:00 AM FUV, Provider: Alfonso Trujillo, Status: Pen, Time: 10:00 AM Merged with [facility] 250 DO Work Phone: Start: 05-09-2023 FUV, Provider: Germaine Brown, Status: Pen, Time: 10:30 AM FUV, Provider: Germaine Brown, Status: Pen, Time: 10:30 AM [facility] 250 DO Work Phone: Start: 04-04-2023 [facility] Start: 04-04-2023 SURGNONUH, Provider: Alfonso Trujillo, Status: Pen, Time: 11:00 AM SURGNON, Provider: Alfonso Trujillo, Status: Pen, Time: 11:00 AM [facility] 250 DO Work Phone: Start: 01-31-2023 Hemolytic complement CH50 level [facility] Start: 10-26-2022 Hemolytic complement CH50 level [facility] Start: 2002 Screening for malign ant neoplasm of colon Colonoscopy [facility] Start: 1975 Adult BMI Follow Up Plan Adult BMI Follow Up Plan [facility] Start: 1957 Screening for malign ant neoplasm of colon [facility] Bilirubin measurement [facility] Body weight [facility] Calcium [Mass/time] in 24 hour Urine [facility] Calcium [Mass/volume ] in 24 hour Urine [facility] Calcium carbonate/To eligio in [facility] Calcium hydrogen phosphate dihydrate/Total in [facility] Calcium oxalate monohydrate/Total in [facility] Calcium phosphate level [facility] Calculus analysis wi th calculus photography [Interpretation] in [facility] Calculus analysis, qualitative [facility] Calculus analysis, quantitative [facility] Calculus analysis, quantitative, infrared spectroscopy [facility] Cellular material [Mass/mass] of Stone by Estimated [facility] Cholesterol [Mass/vo lume] in Serum or Plasma [facility] Complement C3 [Mass/volume] in Serum or Plasma [facility] Work Phone: Complement C3 [Mass/volume] in Serum or Plasma [facility] Complement C3 [Mass/volume] in Serum or Plasma [facility] Complement C3 [Mass/volume] in Serum or Plasma [facility] Complement C4 [Mass/volume] in Serum or Plasma [facility] Work Phone: Complement C4 [Mass/volume] in Serum or Plasma [facility] Complement C4 [Mass/volume] in Serum or Plasma [facility] Complement C4 [Mass/volume] in Serum or Plasma [facility] Cystine measurement [facility] Determination of willow culus chemical composition [facility] Evaluation procedure [facility] Hemolytic complement CH50 level [facility] Work Phone: Hydroxyapatite [Ener gy Difference] in 24 hour Urine [facility] Laboratory data interpretation [facility] Magnesium [Mass/time ] in 24 hour Urine [facility] Magnesium [Mass/volu me] in Urine [facility] Newberyite/Total in Stone [facility] Oxalate [Mass/time] in 24 hour Urine [facility] Patient Education [facility] Work Phone: Patient referral [facility] Work Phone: Phosphate [Mass/time ] in 24 hour Urine [facility] Phosphate [Mass/volu me] in Urine [facility] Specimen source subj ect [Type] [facility] Triamterene measurement [facility] Triple phosphate/Tot al in Stone [facility] Urate [Mass/time] in 24 hour Urine [facility] Urate [Mass/volume] in Urine [facility] Immunizations Immunization Date Immunization Notes Care Provider Fa cility 08-23-2023 Covid-19, Mrna, Lnp- s, Pf,erasmo-sucrose,30 Mcg/0.3ml Fall23 Sascha Sutton DO Work Phone: [id number] 08-23-2023 influenza virus vacc ine, unspecified formulation Zac MUNIZ [facility] 08-23-2023 Influenza, High-dose , Quadrivalent Sascha Sutton DO Work Phone: [facility] 08-23-2023 RSV, bivalent, prote in subunit RSVpreF, diluent reconstituted, 0.5 mL, PF Sascha Kwanng DO Work Phone: [facility] 05-20-2023 tetanus toxoid, redu coni diphtheria toxoid, and acellular pertussis vaccine, adsorbed Zac Spontacts [facility] 12-05-2022 influenza virus vacc ine, unspecified formulation Zac Spontacts [facility] 12-05-2022 influenza, seasonal, injectable Sascha Sutton Work Phone: [facility] 250 DO Work Phone: 10-08-2022 Pfizer COVID-19 Vac Bivalent 30 MCG/0.3ML Intramuscular Suspension Sascha Sutton Work Phone: [facility] 10-08-2022 SARS-COV-2 (COVID-19 ) Vaccine, Unspecified Sascha Sutton DO Work Phone: [facility] 09-07-2022 Fluzone High-Dose Quadrivalent 0.7 ML Intramuscular Suspension Prefilled Syringe Sascha Sutton Work Phone: [facility] 250 DO Work Phone: 09-07-2022 influenza virus vacc ine, unspecified formulation Zac Spontacts [facility] 04-16-2022 Prevnar 20 0.5 ML Intramuscular Suspension Prefilled Syringe Sascha Sutton Work Phone: [facility] 09-23-2021 Lizeth COVID-19 Vac cine 0.5 ML Intramuscular Suspension Sascha G Furlong Work Phone: [facility] 07-28-2021 influenza virus vacc ine, unspecified formulation [facility] 07-28-2021 influenza, injectabl e, quadrivalent, preservative free [facility]cha G Furlong [facility] Work Phone: 01-26-2021 Lizeth COVID-19 Vac cine 0.5 ML Intramuscular Suspension Sascha Candelaria long Work Phone: [facility] 08-22-2020 influenza virus vacc ine, unspecified formulation [facility] 08-22-2020 Influenza, injectabl e, Madin Hilda Canine Kidney, preservative free, quadrivalent Sascha G Furlong Work Phone: [facility] [employer] DO Work Phone: 08-26-2019 zoster vaccine recombinant Sascha G Furlong Work Phone: [facility] 08-20-2019 influenza virus vacc ine, unspecified formulation [facility] 08-20-2019 Influenza, injectabl e, Madin Hilda Canine Kidney, quadrivalent with preservative [facility] Work Phone: 06-27-2019 zoster vaccine recombinant Sascha G Furlong Work Phone: [facility] 09-05-2018 influenza virus vacc ine, unspecified formulation [facility] 09-05-2018 Influenza, injectabl e, Madin Hilda Canine Kidney, preservative free, quadrivalent Sascha G Furlong Work Phone: [facility] 250 DO Work Phone: 07-28-2017 Influenza, injectabl e, Joein Hilda Canine Kidney, preservative free, quadrivalent Asscha Furlong DO Work Phone: [facility] 09-16-2016 pneumococcal conjuga te vaccine, 13 valent Sascha G Furlong Work Phone: [facility] 09-09-2016 influenza virus vacc ine, unspecified formulation Zac MUNIZ [facility] 09-09-2016 influenza, injectabl e, quadrivalent, contains preservative Sascha G Furlong Work Phone: [facility] 250 DO Work Phone: 12-05-2012 pneumococcal polysaccharide vaccine, 23 valent Sascha G Furlong Work Phone: [facility] 12-05-2012 tetanus toxoid, redu coni diphtheria toxoid, and acellular pertussis vaccine, adsorbed Sascha G Furlong Work Phone: [facility] 11-20-1990 hepatitis B vaccine, pediatric or pediatric/adolescent dosage Sascha G Furlong Work Phone: [facility] 10-04-1990 hepatitis B vaccine, pediatric or pediatric/adolescent dosage Sascha G Furlong Work Phone: [facility] Payers Date Payer Category Payer Unknown 2023 Self-pay [id number] 2022 Medicare [id number] 2022 Medicare [id number] 2022 Private Health Insurance [facility] [id number] 2022-Present [phone] [address] [place] [address] [id number] 1959 Medicare [id number] 1959 Unknown [id number] 1957 Unknown [id number] 2.16.840.1.773944.3.579.2 .593 1957 Unknown [id number] 2.16.840.1.277910.3.579.2 .593 1957 Unknown [id number] 2.16.840.1.885537.3.579.2 .356 1957 Unknown [id number] 2.16.840.1.786969.3.579.2 .356 1957 Unknown [id number] 2.16.840.1.061068.3.579.2 .356 1957 Unknown [id number] 2.16.840.1.581784.3.579.2 .1286 1957 Unknown [id number] 2.16.840.1.995607.3.579.2 .1286 1957 Unknown [id number] 2.16.840.1.212262.3.579.2 .1259 1957 Unknown [id number] 2.16.840.1.024650.3.579.2 .1286 1957 Unknown [id number] 2.16.840.1.534526.3.579.2 .1286 1957 Unknown [id number] 2.16.840.1.563323.3.579.2 .1286 1957 Unknown [id number] 2.16.840.1.120623.3.579.2 .727 1957 Unknown [id number] 2.16.840.1.180673.3.579.2 .72 1957 Unknown [id number] 2.16.840.1.152819.3.579.2 .1957 Unknown [id number] 2..840.1.242456.3.579.2 .1957 Unknown [id number] 2.840.1.733622.3.579.2 .1957 Unknown [id number] 2.840.1.436591.3.579.2 .1957 Unknown [id number] 2.840.1.523643.3.579.2 . Unknown [id number] Unknown [place] [facility] [id number] Unknown [facility] [id number] Unknown [id number] 2.16.840.1.085364.3.579.2 .531 Unknown [id number] 2.16.840.1.246045.3.579.2 .531 Unknown [id number] 2.16.840.1.238332.3.579.2 .531 Unknown [id number] 2.16.840.1.734135.3.579.2 .531 Unknown [id number] 2.16.840.1.415250.3.579.2 .531 Unknown [id number] 2.16.840.1.869698.3.579.2 .531 Unknown [id number] 2.16.840.1.699967.3.579.2 .531 Unknown [id number] 2.16.840.1.501916.3.579.2 .531 Unknown [id number] 2.16.840.1.224585.3.579.2 .531 Unknown [id number] 2.16.840.1.595506.3.579.2 .531 Unknown [id number] 2.16.840.1.363399.3.579.2 .531 Unknown [id number] 2.16.840.1.895042.3.579.2 .531 Unknown [id number] 2.16.840.1.140785.3.579.2 .531 Unknown [id number] 2.16.840.1.683553.3.579.2 .531 Unknown [id number] 2.16.840.1.384239.3.579.2 .531 Unknown [id number] 2.16.840.1.621563.3.579.2 .531 Unknown [id number] 2.16.840.1.416883.3.579.2 .531 Unknown [id number] 2.16.840.1.312314.3.579.2 .531 Unknown [id number] 2.16.840.1.143470.3.579.2 .531 Unknown [id number] 2.16.840.1.401281.3.579.2 .531 Unknown [id number] 2.16.840.1.444685.3.579.2 .531 Social History Date Type Detail Facility Start: 10-17-2019 End: 01-03-2024 Tobacco smoking status NHIS Ex-smoker (finding) [facility] Start: 1955 Sex Assigned At Male [facility] Start: 04-14-2023 End: 12-28-2023 No alcohol use No alcohol use [facility] Comment on above: pop occasioanl; quit in the 's; Start: 04-14-2023 End: 12-28-2023 Sex Assigned At Male [facility] Tobacco smoking status Never [facility] History of tobacco use Current smoker [facility] History of tobacco use Cigarette Smoker [facility] History of tobacco use Passive smoker [facility] Start: 09-29-2022 End: 12-26-2023 Tobacco use and exposure Smokeless tobacco non-user [facility] Start: 12-14-2023 Alcohol intake Ex-drinker (finding) [facility] Do you belong to any clubs or organizations such as anabaptist groups, unions, fraSharecare or athletic groups, or school groups? Yes [facility] Are you now , , , , never or living with a partner? [facility] How often to you hav e a drink containing alcohol? Never [facility] Do you feel stress - tense, restless, nervous, or anxious, or unable to sleep at night because your mind is troubled all the time - these days [OSQ] Not at all [facility] Start: 1955 Sex Assigned At Not on file [facility] Start: 12-26-2023 Tobacco smoking stat us TNIS Never smoked tobacco [facility] Start: 12-26-2023 End: 12-28-2023 Alcohol intake Lifetime non-drinker (finding) [facility] Start: 12-26-2023 Alcohol Comment none caffeine [facility] Medical Equipment Procedure Code Equipment Code Equipment Origin al Text Equipment Identifier Dates CAGE [id number] 6DE G CAPSTONE FDA Start: 07-24-2019 SCREW SET S4 AESCULAP FDA Start: 07-24-2019 SCREW SET S4 AESCULAP FDA Start: 07-24-2019 SCREW SET S4 AESCULAP FDA Start: 07-24-2019 SCREW SET S4 AESCULAP FDA Start: 07-24-2019 CANCELLOUS COARS E 7.5CC FDA Start: 07-24-2019 INFUSE XX SMALL 0.7CC FDA Start: 07-24-2019 ARASH S4 CVD 5.5X4 5MM AESCULAP FDA Start: 07-24-2019 ARASH S4 CVD 5.5X5 0MM AESCULAP FDA Start: 07-24-2019 SCREW S4 6X40MM MONO AESCULAP FDA Start: 07-24-2019 SCREW S4 6X40MM MONO AESCULAP FDA Start: 07-24-2019 SCREW S4 6X45MM POLY AESCULAP FDA Start: 07-24-2019 SCREW S4 6X45MM POLY AESCULAP FDA Start: 07-24-2019 CAGE [id number] 6DE G CAPSTONE FDA Start: 07-24-2019 SCREW SET S4 AESCULAP FDA Start: 07-24-2019 SCREW SET S4 AESCULAP FDA Start: 07-24-2019 SCREW SET S4 AESCULAP FDA Start: 07-24-2019 SCREW SET S4 AESCULAP FDA Start: 07-24-2019 CANCELLOUS COARS E 7.5CC FDA Start: 07-24-2019 INFUSE XX SMALL 0.7CC FDA Start: 07-24-2019 ARASH S4 CVD 5.5X4 5MM AESCULAP FDA Start: 07-24-2019 ARASH S4 CVD 5.5X5 0MM AESCULAP FDA Start: 07-24-2019 SCREW S4 6X40MM MONO AESCULAP FDA Start: 07-24-2019 SCREW S4 6X40MM MONO AESCULAP FDA Start: 07-24-2019 SCREW S4 6X45MM POLY AESCULAP FDA Start: 07-24-2019 SCREW S4 6X45MM POLY AESCULAP FDA Start: 07-24-2019 CAGE [id number] 6DE G CAPSTONE FDA Start: 07-24-2019 SCREW SET S4 AESCULAP FDA Start: 07-24-2019 SCREW SET S4 AESCULAP FDA Start: 07-24-2019 SCREW SET S4 AESCULAP FDA Start: 07-24-2019 SCREW SET S4 AESCULAP FDA Start: 07-24-2019 CANCELLOUS COARS E 7.5CC FDA Start: 07-24-2019 INFUSE XX SMALL 0.7CC FDA Start: 07-24-2019 ARASH S4 CVD 5.5X4 5MM AESCULAP FDA Start: 07-24-2019 ARASH S4 CVD 5.5X5 0MM AESCULAP FDA Start: 07-24-2019 SCREW S4 6X40MM MONO AESCULAP FDA Start: 07-24-2019 SCREW S4 6X40MM MONO AESCULAP FDA Start: 07-24-2019 SCREW S4 6X45MM POLY AESCULAP FDA Start: 07-24-2019 SCREW S4 6X45MM POLY AESCULAP FDA Start: 07-24-2019 CAGE [id number] 6DE G CAPSTONE FDA Start: 07-24-2019 SCREW SET S4 AESCULAP FDA Start: 07-24-2019 SCREW SET S4 AESCULAP FDA Start: 07-24-2019 SCREW SET S4 AESCULAP FDA Start: 07-24-2019 SCREW SET S4 AESCULAP FDA Start: 07-24-2019 CANCELLOUS COARS E 7.5CC FDA Start: 07-24-2019 INFUSE XX SMALL 0.7CC FDA Start: 07-24-2019 ARASH S4 CVD 5.5X4 5MM AESCULAP FDA Start: 07-24-2019 ARASH S4 CVD 5.5X5 0MM AESCULAP FDA Start: 07-24-2019 SCREW S4 6X40MM MONO AESCULAP FDA Start: 07-24-2019 SCREW S4 6X40MM MONO AESCULAP FDA Start: 07-24-2019 SCREW S4 6X45MM POLY AESCULAP FDA Start: 07-24-2019 SCREW S4 6X45MM POLY AESCULAP FDA Start: 07-24-2019 CAGE [id number] 6DE G CAPSTONE FDA Start: 07-24-2019 SCREW SET S4 AESCULAP FDA Start: 07-24-2019 SCREW SET S4 AESCULAP FDA Start: 07-24-2019 SCREW SET S4 AESCULAP FDA Start: 07-24-2019 SCREW SET S4 AESCULAP FDA Start: 07-24-2019 CANCELLOUS COARS E 7.5CC FDA Start: 07-24-2019 INFUSE XX SMALL 0.7CC FDA Start: 07-24-2019 ARASH S4 CVD 5.5X4 5MM AESCULAP FDA Start: 07-24-2019 ARASH S4 CVD 5.5X5 0MM AESCULAP FDA Start: 07-24-2019 SCREW S4 6X40MM MONO AESCULAP FDA Start: 07-24-2019 SCREW S4 6X40MM MONO AESCULAP FDA Start: 07-24-2019 SCREW S4 6X45MM POLY AESCULAP FDA Start: 07-24-2019 SCREW S4 6X45MM POLY AESCULAP FDA Start: 07-24-2019 CAGE [id number] 6DE G [employer]ONE FDA Start: 07-24-2019 SCREW SET S4 AESCULAP FDA Start: 07-24-2019 SCREW SET S4 AESCULAP FDA Start: 07-24-2019 SCREW SET S4 AESCULAP FDA Start: 07-24-2019 SCREW SET S4 AESCULAP FDA Start: 07-24-2019 CANCELLOUS COARS E 7.5CC FDA Start: 07-24-2019 INFUSE XX SMALL 0.7CC FDA Start: 07-24-2019 ARASH S4 CVD 5.5X4 5MM AESCULAP FDA Start: 07-24-2019 ARASH S4 CVD 5.5X5 0MM AESCULAP FDA Start: 07-24-2019 SCREW S4 6X40MM MONO AESCULAP FDA Start: 07-24-2019 SCREW S4 6X40MM MONO AESCULAP FDA Start: 07-24-2019 SCREW S4 6X45MM POLY AESCULAP FDA Start: 07-24-2019 SCREW S4 6X45MM POLY AESCULAP FDA Start: 07-24-2019 CAGE [id number] 6DE G [employer]STONE FDA Start: 07-24-2019 SCREW SET S4 AESCULAP FDA Start: 07-24-2019 SCREW SET S4 AESCULAP FDA Start: 07-24-2019 SCREW SET S4 AESCULAP FDA Start: 07-24-2019 SCREW SET S4 AESCULAP FDA Start: 07-24-2019 CANCELLOUS COARS E 7.5CC FDA Start: 07-24-2019 INFUSE XX SMALL 0.7CC FDA Start: 07-24-2019 ARASH S4 CVD 5.5X4 5MM AESCULAP FDA Start: 07-24-2019 ARASH S4 CVD 5.5X5 0MM AESCULAP FDA Start: 07-24-2019 SCREW S4 6X40MM MONO AESCULAP FDA Start: 07-24-2019 SCREW S4 6X40MM MONO AESCULAP FDA Start: 07-24-2019 SCREW S4 6X45MM POLY AESCULAP FDA Start: 07-24-2019 SCREW S4 6X45MM POLY AESCULAP FDA Start: 07-24-2019 CAGE [id number] 6DE G [employer]ONE FDA Start: 07-24-2019 SCREW SET S4 AESCULAP FDA Start: 07-24-2019 SCREW SET S4 AESCULAP FDA Start: 07-24-2019 SCREW SET S4 AESCULAP FDA Start: 07-24-2019 SCREW SET S4 AESCULAP FDA Start: 07-24-2019 CANCELLOUS COARS E 7.5CC FDA Start: 07-24-2019 INFUSE XX SMALL 0.7CC FDA Start: 07-24-2019 ARASH S4 CVD 5.5X4 5MM AESCULAP FDA Start: 07-24-2019 ARASH S4 CVD 5.5X5 0MM AESCULAP FDA Start: 07-24-2019 SCREW S4 6X40MM MONO AESCULAP FDA Start: 07-24-2019 SCREW S4 6X40MM MONO AESCULAP FDA Start: 07-24-2019 SCREW S4 6X45MM POLY AESCULAP FDA Start: 07-24-2019 SCREW S4 6X45MM POLY AESCULAP FDA Start: 07-24-2019 CAGE [id number] 6DE G [employer]ONE FDA Start: 07-24-2019 SCREW SET S4 AESCULAP FDA Start: 07-24-2019 SCREW SET S4 AESCULAP FDA Start: 07-24-2019 SCREW SET S4 AESCULAP FDA Start: 07-24-2019 SCREW SET S4 AESCULAP FDA Start: 07-24-2019 CANCELLOUS COARS E 7.5CC FDA Start: 07-24-2019 INFUSE XX SMALL 0.7CC FDA Start: 07-24-2019 ARASH S4 CVD 5.5X4 5MM AESCULAP FDA Start: 07-24-2019 ARASH S4 CVD 5.5X5 0MM AESCULAP FDA Start: 07-24-2019 SCREW S4 6X40MM MONO AESCULAP FDA Start: 07-24-2019 SCREW S4 6X40MM MONO AESCULAP FDA Start: 07-24-2019 SCREW S4 6X45MM POLY AESCULAP FDA Start: 07-24-2019 SCREW S4 6X45MM POLY AESCULAP FDA Start: 07-24-2019 CAGE [id number] 6DE G [employer]ONE FDA Start: 07-24-2019 SCREW SET S4 AESCULAP FDA Start: 07-24-2019 SCREW SET S4 AESCULAP FDA Start: 07-24-2019 SCREW SET S4 AESCULAP FDA Start: 07-24-2019 SCREW SET S4 AESCULAP FDA Start: 07-24-2019 CANCELLOUS COARS E 7.5CC FDA Start: 07-24-2019 INFUSE XX SMALL 0.7CC FDA Start: 07-24-2019 ARASH S4 CVD 5.5X4 5MM AESCULAP FDA Start: 07-24-2019 ARASH S4 CVD 5.5X5 0MM AESCULAP FDA Start: 07-24-2019 SCREW S4 6X40MM MONO AESCULAP FDA Start: 07-24-2019 SCREW S4 6X40MM MONO AESCULAP FDA Start: 07-24-2019 SCREW S4 6X45MM POLY AESCULAP FDA Start: 07-24-2019 SCREW S4 6X45MM POLY AESCULAP FDA Start: 07-24-2019 CAGE [id number] 6DE G CAPSTONE FDA Start: 07-24-2019 SCREW SET S4 AESCULAP FDA Start: 07-24-2019 SCREW SET S4 AESCULAP FDA Start: 07-24-2019 SCREW SET S4 AESCULAP FDA Start: 07-24-2019 SCREW SET S4 AESCULAP FDA Start: 07-24-2019 CANCELLOUS COARS E 7.5CC FDA Start: 07-24-2019 INFUSE XX SMALL 0.7CC FDA Start: 07-24-2019 ARASH S4 CVD 5.5X4 5MM AESCULAP FDA Start: 07-24-2019 ARASH S4 CVD 5.5X5 0MM AESCULAP FDA Start: 07-24-2019 SCREW S4 6X40MM MONO AESCULAP FDA Start: 07-24-2019 SCREW S4 6X40MM MONO AESCULAP FDA Start: 07-24-2019 SCREW S4 6X45MM POLY AESCULAP FDA Start: 07-24-2019 SCREW S4 6X45MM POLY AESCULAP FDA Start: 07-24-2019 CAGE [id number] 6DE G [employer]STONE FDA Start: 07-24-2019 SCREW SET S4 AESCULAP FDA Start: 07-24-2019 SCREW SET S4 AESCULAP FDA Start: 07-24-2019 SCREW SET S4 AESCULAP FDA Start: 07-24-2019 SCREW SET S4 AESCULAP FDA Start: 07-24-2019 CANCELLOUS COARS E 7.5CC FDA Start: 07-24-2019 INFUSE XX SMALL 0.7CC FDA Start: 07-24-2019 ARASH S4 CVD 5.5X4 5MM AESCULAP FDA Start: 07-24-2019 ARASH S4 CVD 5.5X5 0MM AESCULAP FDA Start: 07-24-2019 SCREW S4 6X40MM MONO AESCULAP FDA Start: 07-24-2019 SCREW S4 6X40MM MONO AESCULAP FDA Start: 07-24-2019 SCREW S4 6X45MM POLY AESCULAP FDA Start: 07-24-2019 SCREW S4 6X45MM POLY AESCULAP FDA Start: 07-24-2019 CAGE [id number] 6DE G CAPSTONE FDA Start: 07-24-2019 SCREW SET S4 AESCULAP FDA Start: 07-24-2019 SCREW SET S4 AESCULAP FDA Start: 07-24-2019 SCREW SET S4 AESCULAP FDA Start: 07-24-2019 SCREW SET S4 AESCULAP FDA Start: 07-24-2019 CANCELLOUS COARS E 7.5CC FDA Start: 07-24-2019 INFUSE XX SMALL 0.7CC FDA Start: 07-24-2019 ARASH S4 CVD 5.5X4 5MM AESCULAP FDA Start: 07-24-2019 ARASH S4 CVD 5.5X5 0MM AESCULAP FDA Start: 07-24-2019 SCREW S4 6X40MM MONO AESCULAP FDA Start: 07-24-2019 SCREW S4 6X40MM MONO AESCULAP FDA Start: 07-24-2019 SCREW S4 6X45MM POLY AESCULAP FDA Start: 07-24-2019 SCREW S4 6X45MM POLY AESCULAP FDA Start: 07-24-2019 CAGE [id number] 6DE G [employer]STONE FDA Start: 07-24-2019 SCREW SET S4 AESCULAP FDA Start: 07-24-2019 SCREW SET S4 AESCULAP FDA Start: 07-24-2019 SCREW SET S4 AESCULAP FDA Start: 07-24-2019 SCREW SET S4 AESCULAP FDA Start: 07-24-2019 CANCELLOUS COARS E 7.5CC FDA Start: 07-24-2019 INFUSE XX SMALL 0.7CC FDA Start: 07-24-2019 ARASH S4 CVD 5.5X4 5MM AESCULAP FDA Start: 07-24-2019 ARASH S4 CVD 5.5X5 0MM AESCULAP FDA Start: 07-24-2019 SCREW S4 6X40MM MONO AESCULAP FDA Start: 07-24-2019 SCREW S4 6X40MM MONO AESCULAP FDA Start: 07-24-2019 SCREW S4 6X45MM POLY AESCULAP FDA Start: 07-24-2019 SCREW S4 6X45MM POLY AESCULAP FDA Start: 07-24-2019 CAGE [id number] 6DE G [employer]ONE FDA Start: 07-24-2019 SCREW SET S4 AESCULAP FDA Start: 07-24-2019 SCREW SET S4 AESCULAP FDA Start: 07-24-2019 SCREW SET S4 AESCULAP FDA Start: 07-24-2019 SCREW SET S4 AESCULAP FDA Start: 07-24-2019 CANCELLOUS COARS E 7.5CC FDA Start: 07-24-2019 INFUSE XX SMALL 0.7CC FDA Start: 07-24-2019 ARASH S4 CVD 5.5X4 5MM AESCULAP FDA Start: 07-24-2019 ARASH S4 CVD 5.5X5 0MM AESCULAP FDA Start: 07-24-2019 SCREW S4 6X40MM MONO AESCULAP FDA Start: 07-24-2019 SCREW S4 6X40MM MONO AESCULAP FDA Start: 07-24-2019 SCREW S4 6X45MM POLY AESCULAP FDA Start: 07-24-2019 SCREW S4 6X45MM POLY AESCULAP FDA Start: 07-24-2019 BD Insulin Syrin ge Ultra-Fine 1 mL 31 gauge x 5/16 [id number] CAGE [id number] 6DE G [employer] FDA Start: 07-24-2019 SCREW SET S4 AESCULAP FDA Start: 07-24-2019 SCREW SET S4 AESCULAP FDA Start: 07-24-2019 SCREW SET S4 AESCULAP FDA Start: 07-24-2019 SCREW SET S4 AESCULAP FDA Start: 07-24-2019 CANCELLOUS COARS E 7.5CC FDA Start: 07-24-2019 INFUSE XX SMALL 0.7CC FDA Start: 07-24-2019 ARASH S4 CVD 5.5X4 5MM AESCULAP FDA Start: 07-24-2019 ARASH S4 CVD 5.5X5 0MM AESCULAP FDA Start: 07-24-2019 SCREW S4 6X40MM MONO AESCULAP FDA Start: 07-24-2019 SCREW S4 6X40MM MONO AESCULAP FDA Start: 07-24-2019 SCREW S4 6X45MM POLY AESCULAP FDA Start: 07-24-2019 SCREW S4 6X45MM POLY AESCULAP FDA Start: 07-24-2019 CAGE [id number] 6DE G CAPSTONE FDA Start: 07-24-2019 SCREW SET S4 AESCULAP FDA Start: 07-24-2019 SCREW SET S4 AESCULAP FDA Start: 07-24-2019 SCREW SET S4 AESCULAP FDA Start: 07-24-2019 SCREW SET S4 AESCULAP FDA Start: 07-24-2019 CANCELLOUS COARS E 7.5CC FDA Start: 07-24-2019 INFUSE XX SMALL 0.7CC FDA Start: 07-24-2019 ARASH S4 CVD 5.5X4 5MM AESCULAP FDA Start: 07-24-2019 ARASH S4 CVD 5.5X5 0MM AESCULAP FDA Start: 07-24-2019 SCREW S4 6X40MM MONO AESCULAP FDA Start: 07-24-2019 SCREW S4 6X40MM MONO AESCULAP FDA Start: 07-24-2019 SCREW S4 6X45MM POLY AESCULAP FDA Start: 07-24-2019 SCREW S4 6X45MM POLY AESCULAP FDA Start: 07-24-2019 CAGE [id number] 6DE G CAPSTONE FDA Start: 07-24-2019 SCREW SET S4 AESCULAP FDA Start: 07-24-2019 SCREW SET S4 AESCULAP FDA Start: 07-24-2019 SCREW SET S4 AESCULAP FDA Start: 07-24-2019 SCREW SET S4 AESCULAP FDA Start: 07-24-2019 CANCELLOUS COARS E 7.5CC FDA Start: 07-24-2019 INFUSE XX SMALL 0.7CC FDA Start: 07-24-2019 ARASH S4 CVD 5.5X4 5MM AESCULAP FDA Start: 07-24-2019 ARASH S4 CVD 5.5X5 0MM AESCULAP FDA Start: 07-24-2019 SCREW S4 6X40MM MONO AESCULAP FDA Start: 07-24-2019 SCREW S4 6X40MM MONO AESCULAP FDA Start: 07-24-2019 SCREW S4 6X45MM POLY AESCULAP FDA Start: 07-24-2019 SCREW S4 6X45MM POLY AESCULAP FDA Start: 07-24-2019 CAGE [id number] 6DE G CAPSTONE FDA Start: 07-24-2019 SCREW SET S4 AESCULAP FDA Start: 07-24-2019 SCREW SET S4 AESCULAP FDA Start: 07-24-2019 SCREW SET S4 AESCULAP FDA Start: 07-24-2019 SCREW SET S4 AESCULAP FDA Start: 07-24-2019 CANCELLOUS COARS E 7.5CC FDA Start: 07-24-2019 INFUSE XX SMALL 0.7CC FDA Start: 07-24-2019 ARASH S4 CVD 5.5X4 5MM AESCULAP FDA Start: 07-24-2019 ARASH S4 CVD 5.5X5 0MM AESCULAP FDA Start: 07-24-2019 SCREW S4 6X40MM MONO AESCULAP FDA Start: 07-24-2019 SCREW S4 6X40MM MONO AESCULAP FDA Start: 07-24-2019 SCREW S4 6X45MM POLY AESCULAP FDA Start: 07-24-2019 SCREW S4 6X45MM POLY AESCULAP FDA Start: 07-24-2019 CAGE [id number] 6DE G CAPSTONE FDA Start: 07-24-2019 SCREW SET S4 AESCULAP FDA Start: 07-24-2019 SCREW SET S4 AESCULAP FDA Start: 07-24-2019 SCREW SET S4 AESCULAP FDA Start: 07-24-2019 SCREW SET S4 AESCULAP FDA Start: 07-24-2019 CANCELLOUS COARS E 7.5CC FDA Start: 07-24-2019 INFUSE XX SMALL 0.7CC FDA Start: 07-24-2019 ARASH S4 CVD 5.5X4 5MM AESCULAP FDA Start: 07-24-2019 ARASH S4 CVD 5.5X5 0MM AESCULAP FDA Start: 07-24-2019 SCREW S4 6X40MM MONO AESCULAP FDA Start: 07-24-2019 SCREW S4 6X40MM MONO AESCULAP FDA Start: 07-24-2019 SCREW S4 6X45MM POLY AESCULAP FDA Start: 07-24-2019 SCREW S4 6X45MM POLY AESCULAP FDA Start: 07-24-2019 CAGE [id number] 6DE G CAPSTONE FDA Start: 07-24-2019 SCREW SET S4 AESCULAP FDA Start: 07-24-2019 SCREW SET S4 AESCULAP FDA Start: 07-24-2019 SCREW SET S4 AESCULAP FDA Start: 07-24-2019 SCREW SET S4 AESCULAP FDA Start: 07-24-2019 CANCELLOUS COARS E 7.5CC FDA Start: 07-24-2019 INFUSE XX SMALL 0.7CC FDA Start: 07-24-2019 ARASH S4 CVD 5.5X4 5MM AESCULAP FDA Start: 07-24-2019 ARASH S4 CVD 5.5X5 0MM AESCULAP FDA Start: 07-24-2019 SCREW S4 6X40MM MONO AESCULAP FDA Start: 07-24-2019 SCREW S4 6X40MM MONO AESCULAP FDA Start: 07-24-2019 SCREW S4 6X45MM POLY AESCULAP FDA Start: 07-24-2019 SCREW S4 6X45MM POLY AESCULAP FDA Start: 07-24-2019 Functional Status Date Assessment Result Facility 01-18-2024 Functional Status N/A [facility] 09-19-2023 Functional Status N/A [facility] Clinical Notes 04-09-2022 to 01-18-2024 Note Date & Type Note Facility 01-18-2024 Hospital Discharg e instructions Patient Education 01/18/2024 09:34:25 Lithotripsy, Care After Lithotripsy, Care After This sheet gives you information about how to care for yourself after your procedure. Your health care provider may also give you more specific instructions. If you have problems or questions, contact your health care provider. What can I expect after the procedure? After the procedure, it is common to have: Some blood in your urine. This should only last for a few days. Soreness in your back, sides, or upper abdomen for a few days. Blotches or bruises on the area where the shock wave entered the skin. Pain, discomfort, or nausea when pieces (fragments) of the kidney stone move through the tube that carries urine from the kidney to the bladder (ureter). Stone fragments may pass soon after the procedure, but they may continue to pass for up to 4 8 weeks. ?If you have severe pain or nausea, contact your health care provider. This may be caused by a large stone that was not broken up, and this may mean that you need more treatment. Some pain or discomfort during urination. Some pain or discomfort in the lower abdomen or (in men) at the base of the penis. Follow these instructions at home: Medicines Take ufls-xzf-ldgnjmo and prescription medicines only as told by your health care provider. If you were prescribed an antibiotic medicine, take it as told by your health care provider. Do not stop taking the antibiotic even if you start to feel better. Ask your health care provider if the medicine prescribed to you requires you to avoid driving or using machinery. Eating and drinking Drink enough fluid to keep your urine pale yellow. This helps any remaining pieces of the stone to pass. It can also help prevent new stones from forming. Eat plenty of fresh fruits and vegetables. Follow instructions from your health care provider about eating or drinking restrictions. You may be instructed to: ?Reduce how much salt (sodium) you eat or drink. Check ingredients and nutrition facts on packaged foods and beverages to see how much sodium they contain. ?Reduce how much meat you eat. Eat the recommended amount of calcium for your age and gender. Ask your health care provider how much calcium you should have. General instructions Get plenty of rest. Return to your normal activities as told by your health care provider. Ask your health care provider what activities are safe for you. Most people can resume normal activities 1 2 days after the procedure. If you were given a sedative during the procedure, it can affect you for several hours. Do not drive or operate machinery until your health care provider says that it is safe. Your health care provider may direct you to lie in a certain position (postural drainage) and tap firmly (percuss) over your kidney area to help stone fragments pass. Follow instructions as told by your health care provider. If directed, strain all urine through the strainer that was provided by your health care provider. ?Keep all fragments for your health care provider to see. Any stones that are found may be sent to a medical lab for examination. The stone may be as small as a grain of salt. Keep all follow-up visits as told by your health care provider. This is important. Contact a health care provider if: You have a fever or chills. You have nausea that is severe or does not go away. You have any of these urinary symptoms: ?Blood in your urine for longer than your health care provider told you to expect. ?Urine that smells bad or unusual. ?Feeling a strong urge to urinate after emptying your bladder. ?Pain or burning with urination that does not go away. ?Urinating more often than usual and this does not go away. You have a stent and it comes out. Get help right away if: You have severe pain in your back, sides, or upper abdomen. You have any of these urinary symptoms: ?Severe pain while urinating. ?More blood in your urine or having blood in your urine when you did not before. ?Passing blood clots in your urine. ?Passing only a small amount of urine or being unable to pass any urine at all. You have severe nausea that leads to persistent vomiting. You faint. Summary After this procedure, it is common to have some pain, discomfort, or nausea when pieces (fragments) of the kidney stone move through the tube that carries urine from the kidney to the bladder (ureter). If this pain or nausea is severe, however, you should contact your health care provider. Return to your normal activities as told by your health care provider. Ask your health care provider what activities are safe for you. Drink enough fluid to keep your urine pale yellow. This helps any remaining pieces of the stone to pass, and it can help prevent new stones from forming. If directed, strain your urine and keep all fragments for your health care provider to see. Fragments or stones may be as small as a grain of salt. Get help right away if you have severe pain in your back, sides, or upper abdomen, or if you have severe pain while urinating. This information is not intended to replace advice given to you by your health care provider. Make sure you discuss any questions you have with your health care provider. Document Revised: 10/04/2022 Document Reviewed: 07/12/2022 [employer] Patient Education 2022 [employer]. 01/18/2024 09:34:24 Lithotripsy Lithotripsy Lithotripsy is a treatment that can help break up kidney stones that are too large to pass on their own. This is a nonsurgical procedure that crushes a kidney stone with shock waves. These shock waves pass through your body and focus on the kidney stone. They cause the kidney stone to break up into smaller pieces while it is still in the urinary tract. The smaller pieces of stone can pass more easily out of your body in the urine. Tell a health care provider about: Any allergies you have. All medicines you are taking, including vitamins, herbs, eye drops, creams, and ywvn-jsj-fqvexed medicines. Any problems you or family members have had with anesthetic medicines. Any blood disorders you have. Any surgeries you have had. Any medical conditions you have. Whether you are or may be . What are the risks? Generally, this is a safe procedure. However, problems may occur, including: Infection. Bleeding from the kidney. Bruising of the kidney or skin. Scarring of the kidney, which can lead to: ?Increased blood pressure. ?Poor kidney function. ?Return (recurrence) of kidney stones. Damage to other structures or organs, such as the liver, colon, spleen, or pancreas. Blockage (obstruction) of the tube that carries urine from the kidney to the bladder (ureter). Failure of the kidney stone to break into pieces (fragments). What happens before the procedure? Staying hydrated Follow instructions from your health care provider about hydration, which may include: Up to 2 hours before the procedure you may continue to drink clear liquids, such as water, clear fruit juice, black coffee, and plain tea. Eating and drinking restrictions Follow instructions from your health care provider about eating and drinking, which may include: 8 hours before the procedure stop eating heavy meals or foods, such as meat, fried foods, or fatty foods. 6 hours before the procedure stop eating light meals or foods, such as toast or cereal. 6 hours before the procedure stop drinking milk or drinks that contain milk. 2 hours before the procedure stop drinking clear liquids. Medicines Ask your health care provider about: Changing or stopping your regular medicines. This is especially important if you are taking diabetes medicines or blood thinners. Taking medicines such as aspirin and ibuprofen. These medicines can thin your blood. Do not take these medicines unless your health care provider tells you to take them. Taking uieq-rhy-sdwaxsp medicines, vitamins, herbs, and supplements. Tests You may have tests, such as: Blood tests. Urine tests. Imaging tests, such as a CT scan. General instructions Plan to have someone take you home from the hospital or clinic. If you will be going home right after the procedure, plan to have someone with you for 24 hours. Ask your health care provider what steps will be taken to help prevent infection. These may include washing skin with a germ-killing soap. What happens during the procedure? An IV will be inserted into one of your veins. You will be given one or more of the following: ?A medicine to help you relax (sedative). ?A medicine to make you fall asleep (general anesthetic). A water-filled cushion may be placed behind your kidney or on your abdomen. In some cases, you may be placed in a tub of lukewarm water. Your body will be positioned in a way that makes it easy to target the kidney stone. An X-ray or ultrasound exam will be done to locate your stone. Shock waves will be aimed at the stone. If you are awake, you may feel a tapping sensation as the shock waves pass through your body. A flexible tube with holes in it (stent) may be placed in the ureter. This will help keep urine flowing from the kidney if the fragments of the stone have been blocking the ureter. The procedure may vary among health care providers and hospitals. What happens after the procedure? You may have an X-ray to see whether the procedure was able to break up the kidney stone and how much of the stone has passed. If large stone fragments remain after treatment, you may need to have a second procedure at a later time. Your blood pressure, heart rate, breathing rate, and blood oxygen level will be monitored until you leave the hospital or clinic. You may be given antibiotics or pain medicine as needed. If a stent was placed in your ureter during surgery, it may stay in place for a few weeks. You may need to strain your urine to collect pieces of the kidney stone for testing. You will need to drink plenty of water. If you were given a sedative during the procedure, it can affect you for several hours. Do not drive or operate machinery until your health care provider says that it is safe. Summary Lithotripsy is a treatment that can help break up kidney stones that are too large to pass on their own. Lithotripsy is a nonsurgical procedure that crushes a kidney stone with shock waves. Generally, this is a safe procedure. However, problems may occur, including damage to the kidney or other organs, infection, or obstruction of the tube that carries urine from the kidney to the bladder (ureter). You may have a stent placed in your ureter to help drain your urine. This stent may stay in place for a few weeks. After the procedure, you will need to drink plenty of water. You may be asked to strain your urine to collect pieces of the kidney stone for testing. This information is not intended to replace advice given to you by your health care provider. Make sure you discuss any questions you have with your health care provider. Document Revised: 10/04/2022 Document Reviewed: 07/12/2022 [employer] Patient Education 2022 [employer]. Follow Up Care 01/03/2024 14:10:04 With:FLAVIO ONEAL, Zac De Oliveira, URL Address: [facility] [address] , [place] [address]- When: Unknown [facility] 12-30-2023 Evaluation note Encounter Date Diagnosis Assessment Notes Dec, Spinal stenosis of lumbar region without neurogenic claudication (ICD-10 - M48.061) Reviewed previous X-rays: Hardware placement appears good, with a well-positioned cage. Evidence of residual spondylolisthesis . MRI: Ordered to further evaluate the patient's condition pathology and determin procedural intervnetions. Will order X-rays of the lumbar spine 6 views, including bending and moving positions, and of the neck with flexion and extension rule out hypermobility. WIll order BUE EMG: Suggested to evaluate reported numbness in the last three fingers of the right hand and to assess for ulnar nerve involvement. Pharmacological management continue with current medications as precribed. Continue with PT and conservative therapy. Follow up in 6 weeks to Review MRI. Dec, Lumbar pain (ICD-10 - M54.50) Dec, Hx of decompressive lumbar laminectomy (ICD-10 - Z98.890) Dec, Right cervical radiculopathy (ICD-10 - M54.12) Cervical stenosis with radiculopathy (right arm): - Order cervical x-ray with flexion and extension today - Consider EMG of bilateral upper extremities for right ulnar nerve evaluation - Follow up in six weeks or after imaging completion Dec, Ulnar neuritis, right (ICD-10 - G56.21) Right ulnar nerve issue: - [facility] - Schedule bilateral upper extremity EMG - Follow up in six weeks or after EMG completion Dec, Other Note: Patient has a history of lupus, previous surgeries, and steroid injections in the knees. [employer] Other 02-07-2024 History of Present illness Narrative* Zaira Cain, DPM - 12/28/2023 2:00 PM EST Patient presents today to discuss orthotics. Patient would like to try powersteps Examination General Examination: GENERAL EXAMINATIONawake, aware of surroundings, in no acute distress. Vascular: DORSALIS PEDIS PULSE:2/4, bilaterally. POSTERIOR TIBIAL PULSE:1/4, bilaterally. TEMPERATURE GRADIENT:warm to cool. EDEMA:none. CAPILLARY FILLING TIME(sec):capillary fill intact bilateral digits less than 3 secs. Neurologic: VIBRATORY:normal. SEMMES-ANDERSON 5.07 MONOFILAMENTnormal. Dermatologic: SKIN FINDINGS:texture, turgor, hair growth, within normal limits. HYPERKERATOSIS:no hyperkeratotic tissue noted NAIL PATHOLOGY:digits 1-5 bilateral are intact. Orthopedic: JOINT RANGE OF MOTION:Normal DEFORMITIES:Hammer toe and pronation bilaterally PAIN ELICITED WITH PALPATION OF Patient presents today with chief complaint of painful knee bilaterally. He has a history of pronation and has worn the same pair of orthotics for 10 years. He is concerned that the orthotics are wearing out. However, he states that since he bought his new tennis shoes last summer he has not worn the orthotics as it appeared they did not fit within the shoes. On exam significant pronation noted on weight-bearing. Patient has generalized knee pain medially and laterally bilaterally Imaging Studies: FOOT X-RAY:09/29/22: X-rays 3 views taken left foot at [facility] reveal fracture of the head of the proximal phalanx of the second left toe. Mild lateral angulation noted at the PIP joint. Noother fractures or dislocations are noted. Assessments 1. Pronation deformity of foot (Primary) 2. Knee pain bilaterally Treatment Pronation deformity of foot bilaterally Notes: Completed examination. Checked patient's orthotics and they are still in good shape. Advisedpatient that he could remove the manufacture insert in his shoes to make room for his orthotics. This increased his comfort significantly and he will now be able to use his orthotics once again. If symptoms persist may need to consider new orthotic biomechanical support than these devices offer. David discussed using [employer] power step insoles. One pair was dispensed today and the patient will use these in his boots. Patient will use these devices for the next 3 weeks and if symptoms resolve he may cancel that appointment. documented in this encounterM[facility] [id number] History of Present illness Narrative* Sascha Sutton, DO - 12/14/2023 9:30 AM EST Subjective Patient ID: Valentin Torre is a 68 y.o. male. Jeffry presents today for CV recheck but he has multiple other concerns today. He had back surgery about 4 5 years ago and now he is having back pain again. It started about 2 months ago. It is in thecenter of his low back. Does not radiate anywhere. He says it is interfering with his ability to walk due to pain but not weakness. He does not have any bowel or bladder symptoms. He has taking a lotof medications for his connective tissue disease but those do not seem to be helping for his back. He had a fusion and cage put in due to instability. He is having some numbness and tingling on the left side of his neck and upper back. It comes and goes. He is also having numbness and tingling in his right arm and down to his pinky finger. He says he has a pinched nerve in his elbow that he has had previously but it was not bothering him until recently. He wonders if he could use a pad to protect it. He is also having increased difficulty hearing out of his right ear and would like his ears checkedfor wax. The following portions of the patient's history were reviewed and updated as appropriate: allergies, current medications, past family history, past medical history, past social history, past surgicalhistory, problem list, and medication reconciliation was completed including current medication andpost discharge medication. Review of Systems Constitutional: Negative. HENT: Positive for hearing loss. Eyes: Negative. Respiratory: Negative. Cardiovascular: Negative. Gastrointestinal: Negative. Endocrine: Negative. Genitourinary: Negative. Musculoskeletal: Positive for arthralgias and back pain. Skin: Negative. Allergic/Immunologic: Negative. Neurological: Positive for numbness (right distal arm along ulnar aspect and left side of neck). Hematological: Negative. Psychiatric/Behavioral: Negative. Objective Physical Exam Exam conducted with a fresh work wrapper layer present (Junior Karina MS III). Constitutional: Appearance: He is obese. HENT: Head: Normocephalic and atraumatic. Right Ear: Decreased hearing noted. No drainage, swelling or tenderness. Tympanic membrane is scarred. Left Ear: Decreased hearing noted. No drainage, swelling or tenderness. Tympanic membrane is scarred. Ears: Comments: Moderate cerumen Eyes: General: No scleral icterus. Extraocular Movements: Extraocular movements intact. Conjunctiva/sclera: Conjunctivae normal. Cardiovascular: Rate and Rhythm: Normal rate and regular rhythm. Pulses: Normal pulses. Heart sounds: Normal heart sounds. No murmur heard. Pulmonary: Effort: Pulmonary effort is normal. No respiratory distress. Breath sounds: Normal breath sounds. No wheezing, rhonchi or rales. Abdominal: General: Bowel sounds are normal. There is no distension. Palpations: Abdomen is soft. Tenderness: There is no abdominal tenderness. Musculoskeletal: Cervical back: Neck supple. No tenderness. Right lower leg: No edema. Lymphadenopathy: Cervical: No cervical adenopathy. Skin: General: Skin is warm and dry. Neurological: General: No focal deficit present. Mental Status: He is alert and oriented to person, place, and time. Motor: Motor function is intact. Deep Tendon Reflexes: Babinski sign absent on the right side. Babinski sign absent on the left side. Reflex Scores: Patellar reflexes are 4+ on the right side and 4+ on the left side. Achilles reflexes are 1+ on the right side and 0 on the left side. Psychiatric: Mood and Affect: Mood normal. Behavior: Behavior normal. Thought Content: Thought content normal. Judgment: Judgment normal. Assessment/Plan Diagnoses and all orders for this visit: Essential hypertension Blood pressure at goal. Continue current regimen. Check CMP. Hyperlipidemia, unspecified hyperlipidemia type - Comprehensive metabolic panel; Future - Lipid panel; Future Check lipid panel Midline low back pain without sciatica, unspecified chronicity - X-ray spine lumbar 2 or 3 views; Future - [facility] [place], [place]; Future Check x-ray of lumbar spine. We discussed different treatment options. He has not open to pain management. He said he tried it before and it did not work but I told him he required surgery and that may have played a big factor in why it did not work. Surgery should be a last resort. Try physical therapy and he may need an MRI. Class 1 obesity due to excess calories with serious comorbidity and body mass index (BMI) of 33.0 to 33.9 in adult He is obese. It is contributing to high blood pressure and high cholesterol. He benefit from weightloss. He is difficulty ambulating due to the back pain. Monitor portion sizes. 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[facility] Follow up with stone mill operator as directed [place]iph[place] Follow-up with specialist as directed. Cubital tunnel syndrome on right Can try an elbow pad to see if that helps. Consider ortho consult. Paresthesias Intermittent paresthesias on the left side of his neck. Possibly coming from cervical disc disease.Previous cervical CT scan reviewed and did show moderate degenerative disc disease with encroachment of the neural foramina. [facility] Hospital Discharge instructions Patient Education 09/19/2023 10:21:28 Dietary Guidelines to Help Prevent Kidney Stones Dietary Guidelines to Help Prevent Kidney Stones Kidney stones are deposits of minerals and salts that form inside your kidneys. Your risk of developing kidney stones may be greater depending on your diet, your lifestyle, the medicines you take, and whether you have certain medical conditions. Most people can lower their chances of developing kidney stones by following the instructions below. Your dietitian may give you more specific instructions depending on your overall health and the type of kidney stones you tend to develop. What are tips for following this plan? Reading food labels Choose foods with no salt added or low-salt labels. Limit your salt (sodium) intake to less than 1,500 mg a day. Choose foods with calcium for each meal and snack. Try to eat about 300 mg of calcium at each meal.Foods that contain 200 500 mg of calcium a serving include: ?8 oz (237 mL) of milk, ivvbxbh-ksjcqnxrpang-ybyaf milk, and calcium- fortifiedfruit juice. Calcium-fortified means that calcium has been added to these drinks. ?8 oz (237 mL) of kefir, yogurt, and soy yogurt. ?4 oz (114 g) of tofu. ?1 oz (28 g) of cheese. ?1 cup (150 g) of dried figs. ?1 cup (91 g) of cooked broccoli. ?One 3 oz (85 g) can of sardines or mackerel. Most people need 1,000 1,500 mg of calcium a day. Talk to your dietitian about how much calcium is recommended for you. Shopping Buy plenty of fresh fruits and vegetables. Most people do not need to avoid fruits and vegetables, even if these foods contain nutrients that may contribute to kidney stones. When shopping for convenience foods, choose: ?Whole pieces of fruit. ?Pre-made salads with dressing on the side. ?Low-fat fruit and yogurt smoothies. Avoid buying frozen meals or prepared deli foods. These can be high in sodium. Look for foods with live cultures, such as yogurt and kefir. Choose high-fiber grains, such as whole-wheat breads, oat bran, and wheat cereals. Cooking Do not add salt to food when cooking. Place a salt shaker on the table and allow each person to addhis or her own salt to taste. Use vegetable protein, such as beans, textured vegetable protein (TVP), or tofu, instead of meat inpasta, casseroles, and soups. Meal planning Eat less salt, if told by your dietitian. To do this: ?Avoid eating processed or pre-made food. ?Avoid eating fast food. Eat less animal protein, including cheese, meat, poultry, or fish, if told by your dietitian. To dothis: ?Limit the number of times you have meat, poultry, fish, or cheese each week. Eat a diet free of meat at least 2 days a week. ?Eat only one serving each day of meat, poultry, fish, or seafood. ?When you prepare animal protein, cut pieces into small portion sizes. For most meat and fish, one serving is about the size of the palm of your hand. Eat at least five servings of fresh fruits and vegetables each day. To do this: ?Keep fruits and vegetables on hand for snacks. ?Eat one piece of fruit or a handful of berries with breakfast. ?Have a salad and fruit at lunch. ?Have two kinds of vegetables at dinner. Limit foods that are high in a substance called oxalate. These include: ?Spinach (cooked), rhubarb, beets, sweet potatoes, and Chadian chard. ?Peanuts. ?Potato chips, belarusian fries, and baked potatoes with skin on. ?Nuts and nut products. ?Chocolate. If you regularly take a diuretic medicine, make sure to eat at least 1 or 2 servings of fruits or vegetables that are high in potassium each day. These include: ?Avocado. ?Banana. ?[place], prune, carrot, or tomato juice. ?Baked potato. ?Cabbage. ?Beans and split peas. Lifestyle Drink enough fluid to keep your urine pale yellow. This is the most important thing you can do. Spread your fluid intake throughout the day. If you drink alcohol: ?Limit how much you use to: ?0 1 drink a day for women who are not . ?0 2 drinks a day for men. ?Be aware of how much alcohol is in your drink. In the [place] one drink equals one 12 oz bottle of beer (355 mL), one 5 oz glass of wine (148 mL), or one 1 oz glass of hard liquor (44 mL). Lose weight if told by your health care provider. Work with your dietitian to find an eating plan and weight loss strategies that work best for you. General information Talk to your health care provider and dietitian about taking daily supplements. You may be told thefollowing depending on your health and the cause of your kidney stones: ?Not to take supplements with vitamin C. ?To take a calcium supplement. ?To take a daily probiotic supplement. ?To take other supplements such as magnesium, fish oil, or vitamin B6. Take nxnh-buh-rmbhjwd and prescription medicines only as told by your health care provider. These include supplements. What foods should I limit? Limit your intake of the following foods, or eat them as told by your dietitian. Vegetables Spinach. Rhubarb. Beets. Canned vegetables. Pickles. Olives. Baked potatoes with skin. Grains Wheat bran. Baked goods. Salted crackers. Cereals high in sugar. Meats and other proteins Nuts. Nut butters. Large portions of meat, poultry, or fish. Salted, precooked, or cured meats, such as sausages, meat loaves, and hot dogs. Dairy Cheese. Beverages Regular soft drinks. Regular vegetable juice. Seasonings and condiments Seasoning blends with salt. Salad dressings. Soy sauce. Ketchup. Barbecue sauce. Other foods Canned soups. Canned pasta sauce. Casseroles. Pizza. Lasagna. Frozen meals. Potato chips. Estonian fries. The items listed above may not be a complete list of foods and beverages you should limit. Contact a dietitian for more information. What foods should I avoid? Talk to your dietitian about specific foods you should avoid based on the type of kidney stones youhave and your overall health. Fruits Grapefruit. The item listed above may not be a complete list of foods and beverages you should avoid. Contact adietitian for more information. Summary Kidney stones are deposits of minerals and salts that form inside your kidneys. You can lower your risk of kidney stones by making changes to your diet. The most important thing you can do is drink enough fluid. Drink enough fluid to keep your urine pale yellow. Talk to your dietitian about how much calcium you should have each day, and eat less salt and animal protein as told by your dietitian. This information is not intended to replace advice given to you by your health care provider. Make sure you discuss any questions you have with your health care provider. Document Revised: 07/19/2022 Document Reviewed: 07/19/2022 [employer] Patient Education 2022 Dep[employer]. Follow Up Care 08/08/2023 12:11:26 With:Zac MUNIZ MD, URL Address: [facility] [address] [place] [address]- [phone] When: Unknown [facility] 07-05-2023 Hospital Discharge instructions Follow Up Care 05/25/2023 15:06:06 With:Zac MUNIZ MD, URL Address: [facility] [address] [place] [address]- [phone] When: Unknown [facility] 05-15-2023 Procedure [facility]05-15-2023 Hospital Discharge instructions Additional Instructions DISCHARGE INSTRUCTIONS FOR CARDIAC LEACH TANK TENDER PHONE NUMBER OF YOUR PHYSICIAN: [phone] PROCEDURE: Heart Cath The following instructions have been prepared to help you care for yourself, or be cared for upon your return home. 1. You were given conscious sedation. Do not operate a vehicle, power tools, make important decisions, or drink alcohol for 24 hours. You might be drowsy or light headed. Return to the Emergency Room if you have trouble breathing, walking or nausea and vomiting. 2. FOR BLEEDING: Apply continuous pressure to the site and call 911. 3. Operative Site Care: Keep the dressing clean and dry. You may change the dressing only if soiled or wet. You may remove the dressing the following morning. You may wash over the puncture site in the shower. If the puncture site is at the wrist no soaking for 3 days. Some bruising or slight swelling may be present. -Signs of infection are redness, warmth, swelling, getting more sore, colored drainage, fever or chills. -Should the arm or leg become cold, numb, blue or white, call the butter wrapper immediately. 4. ACTIVITY: You are advised to go directly home from the hospital. Restrict your activities for the rest of the day. Resume light or normal activities tomorrow. Do not engage in any activity that will stress the puncture site. Avoid heavy lifting (over 15 lbs.), straining or bending at the catheter site for 48 hours after discharge. If the puncture site is at the wrist do not manipulate wrist for 24 hours and no lifting more than 3 lbs for 3 days. 5. DIET:You may eat your regular diet when you desire. 6. MEDICATIONS: Resume your daily prescription schedule. Prescriptions may be sent with you if needed. Use as directed. When taking pain medications, you may experience dizziness or drowsiness. Do not drink alcohol or drive when taking pain medications. 7. If you should experience episodes of angina e.g. chest discomfort, heaviness, tightness, pressure, burning, with or without radiation to the neck, jaws, arms, or back- Use 1 Nitrostat under your tongue every 5-10 minutes, and up to 3 tablets. If no relief- Call 911 and go to the nearest Emergency Room. -Notify the office for recurrent angina, chest pain or other concerns. You may NOT drive yourself home! Follow the medication instructions provided on your discharge. If the dosages and instructions on this sheet differ from the dosage and instructions on the bottle, follow the instructions on the bottle. [facility] is not responsible for incorrect prescription information provided by the patient during their visit. Do not stop your medications without consulting your health care provider. Please take the list with you to your next doctor's appointment.[facility] Work Phone: [phone]) 141-706304-30-2023 Chief complaint Narrative - Reported* VALENTIN TORRE is being seen for a consultation for chest pain. * 67-year-old gentleman seen in cardiology consultation at the request of Dr. Sutton following an episode of severe chest discomfort with left and right neck radiation that occurred [facility] this past Tuesday with subsequent stress imaging performed after he was admitted at [facility] that was reportedly unremarkable. Patient has since had another episode of neck discomfort since then. * He has no history of myocardial infarction, revascularization, stroke, thromboembolic or bleeding disorder * He does have a history of hypertension, obesity, hyperlipidemia, rheumatoid arthritis, lupus, and reportedly undifferentiated connective tissue disease. * Details of the stress test are not available. Dr. Sutton's outpatient note is reviewed and he states that the initial report of the imaging was reportedly normal. * Today's ECG reveals sinus rhythm with inferolateral T wave inversions that apparently is chronic wehave no old ECGs to compare. * Informed decision-making process, risks, benefits and alternatives discussed with patient and his for over 30 minutes this morning in regards to conservative management versus consideration for further imaging including CT angiography versus heart catheterization. We have offered him nitroglycerin with observation, as well as current medical therapies in addition to catheterization. Patient is very anxious and interested to know if he has significant coronary disease to worry about. Based on his presenting history, abnormal ECG, comorbidities, and age, proceeding with left heart catheteri zation would be appropriate. We will proceed with prescribing on sublingual nitroglycerin, and proceed with a heart catheterization sometime next week Merged with [facility] DO Work Phone: 1(138) 420-300105-20-2022 NotePROCEDURE: XR SHOULDER RT 2V or > HISTORY: Unspecified fall COMPARISON: None. FINDINGS: BONES:Narrowing of the acromioclavicular joint without significant undersurface osteophytes. Narrowing of the glenohumeral joint without fracture or dislocation. SOFT TISSUES:No visible soft tissue swelling. EFFUSION:None visible. OTHER: Negative. IMPRESSION: 1. No acute bone abnormality. 2. Mild-moderate degenerative changes. Electronically authenticated by: PRIMO GALE Date: 2022-04-09 17:07[facility]05-20-2022 NotePROCEDURE: XR ELBOW RT MIN 3 VIEWS HISTORY: Unspecified fall COMPARISON: None. FINDINGS: BONES:Mild-moderate degenerative changes. No fracture, dislocation, bone lesion. SOFT TISSUES:No visible soft tissue swelling. EFFUSION:None visible. OTHER: Negative. IMPRESSION: 1. No acute bone abnormality of the right elbow. Electronically authenticated by: PRIMO GALE Date: 2022-04-09 16:53[facility] Future Appointments Appointment Date:08/08/2023 11:45:00 AM Scheduled Provider:Zac MUNIZ MD Location:[facility] Appointment Type:URO Office Visit [facility] evaluation + Plan note Future Appointments Appointment Date:09/19/2023 09:30:00 AM Scheduled Provider:Zac MUNIZ MD Location:[facility] Appointment Type:URO Office Visit [facility] evaluation + Plan note Future Appointments Appointment Date:03/23/2024 08:15:00 AM Scheduled Provider:Zac MNUIZ MD Location:[facility] Appointment Type:URO Office Visit Diagnostic Tests Pending * Electrolyte Panel 09/19/23 [facility] evaluation + Plan note Future Appointments Appointment Date:03/23/2024 08:15:00 AM Scheduled Provider:Zac MUNIZ MD Location:[facility] Appointment Type:URO Office Visit [facility] Evaluation + Plan note Future Appointments Appointment Date:03/23/2024 08:15:00 AM Scheduled Provider:Zac MUNIZ MD Location:[facility] Appointment Type:URO Office Visit Diagnostic Tests Pending * Calculi Analysis [facility] Work Phone: Evaluation note* Diagnosis Essential hypertension- Primary Unspecified essential hypertension Hyperlipidemia, unspecified hyperlipidemia type Midline low back pain without sciatica, unspecified chronicity Class 1 obesity due to excess calories with serious comorbidity and body mass index (BMI) of 33.0 to 33.9 in adult 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CMS-HCC) Unspecified diffuse connective tissue disease Antiphospholipid syndrome (CMS-HCC) Primary hypercoagulable state Cubital tunnel syndrome on right Paresthesias Disturbance of skin sensation [facility] Diagnosis Pronation deformity of both feet- Primary Chronic pain of both knees [facility] - Reported* Type Description Date Medical History Polyarthritis Medical History systemic disorders o f connective tissue in other diseases Medical History harelip cleft palate Medical History perforated ear drums Medical History Undifferentiated connective tiss ue disease Medical History inverted T waves when not active Medical History broken ribs Medical History squamous cell carcinoma Surgical History eye sx removed linda Left (canc er) 2013 Surgical History right shoulder surgery Surgical History Left knee repalcement 2011 Surgical History scope right knee x3 Surgical History Rt shoulder sx 2009 Surgical History scope left knee x2, opened x2 Surgical History knee scope 3x RT Surgical History left knee replacement Surgical History eye surgery Surgical History RT tympanoplasty 10/17/2019 Surgical History left temporal biopsy Surgical History bilateral CTR Surgical History back surgery 2019 Hospitalization History See above [employer] Other History of Present illness Narrative* The patient states he has been generally doing well since the last visit. Comorbid Illnesses: hypertension and hyperlipidemia. * Symptoms: denies chest pain at rest, denies exertional chest pain, denies dyspnea, denies fatigue, denies exercise intolerance, denies palpitations, denies edema, denies dizziness and denies orthostatic dizziness. * Associated symptoms: no syncope. * His symptoms do not limit his activities. * Disease Monitoring: The patient has had a stable weight. * Medications: the patient is adherent with his medication regimen. He denies medication side effects. Merged with [facility] DO Work Phone: Hospital course Narrative No data available for this section [facility] Hospital Discharge instructions No data available for this section [facility] Hospital Discharge instructions Additional Instructions Your stone is 4 mm and almost to the bladder on the right side as we discussed. Your urine sample did not show any evidence of obvious infection. Your white blood cell count was a little high, though, so we are going to put you on antibiotics just in case. Please follow-up with urology. If you have any problems or concerns, do not hesitate to come back.[facility] Work Phone: InstructionsNot on filedocumented in this encounter [id number] note No data available for this section [facility] reason for referral (narrative)* Consultation (Routine) - Authorized Specialty Diagnoses / Procedures Referred By Jd jiménez Referred To Contact Rehabilitation Diagnoses Midline low back pain without sciatica, unspecified chronicity Sascha Sutton DO [address], [facility] [place] [address] [facility] [address] [place] [address] Referral ID Status Reason Start Date Expiration Date Visits Requested Visits Authorized [id number] Authorized Specialty Services Required 12/14/2023 12/13/2024 1 1 [id number] Summary Purpose Family History Relationship Condition Age at Onset Recorded Date/T juliane father Myocardial infarction Unknown Hypertension Unknown Not Specified Myocardial infarction Unknown brother Bipolar disorder Unknown brother Diabetes mellitus Unknown Unknown Family Member Name Dates Details Family history of CABG: Moth er(V17.49, Z82.49) Status:Active Family history of myocardial infarction: Father(V17.3, Z82.49) Status:Active Family history of diabetes m ellitus: Brother(V18.0, Z83.3) Status:Active Lupus: Brother Status:Active Unknown Family Member Name Dates Details Family history of CABG: Moth er(V17.49, Z82.49) Status:Active Family history of myocardial infarction: Father(V17.3, Z82.49) Status:Active Family history of diabetes m ellitus: Brother(V18.0, Z83.3) Status:Active Lupus: Brother Status:Active Unknown Family Member Name Dates Details Family history of CABG: Moth er(V17.49, Z82.49) Status:Active Family history of myocardial infarction: Father(V17.3, Z82.49) Status:Active Family history of diabetes m ellitus: Brother(V18.0, Z83.3) Status:Active Lupus: Brother Status:Active Relationship Condition Age at Onset Recorded Date/T juliane father Myocardial infarction Unknown Hypertension Unknown Not Specified Myocardial infarction Unknown brother Bipolar disorder Unknown brother Diabetes mellitus Unknown father Unknown Heart disease Unknown Not Specified Unknown Advance Directives Advance Directive Response Recorded Date/ Time Advance Directives No May 12 3:30am Advance Directive Response Recorded Date/ Time Advance Directives No May 12 2:30am Advance Directive Response Recorded Date/ Time Advance Directives Yes January 29, 3:03pm Chief Complaint and Reason for Visit Chief Complaint See order Chief Complaint m35.00 z79.899 m15.0 m35.9 m79.672 Chief Complaint m35.9 m79.672 m35.00 z79.899 m15.0 Chief Complaint M35.00 Z79.899 M15.0 Chief Complaint M35.00 Z79.899 M15.0 Chest Pain Chief Complaint M35.00 Z79.899 M15.0 Chest Pain Chest Pain Chief Complaint Chest Pain Chest Pain i10 e78.5 r06.02 abd pain L flank pain, hx kidney stone N20.0 Chief Complaint Chest Pain Chest Pain i10 e78.5 r06.02 abd pain L flank pain, hx kidney stone N20.0 Kidney Stones m35.00 z79.899 m15.0 Chief Complaint Kidney Stones m35.00 z79.899 m15.0 N20.0 Chief Complaint m35.00 z79.899 m15.0 N20.0 kidney stones Chief Complaint N20.0 kidney stones m35.00 z79.899 m15.0 Chief Complaint N20.0 kidney stones m35.00 z79.899 m15.0 Polyarthritis OA Hip pain Chief Complaint N20.0 kidney stones m35.00 z79.899 m15.0 Polyarthritis OA Hip pain N20.0 Chief Complaint Polyarthritis OA Hip pain N20.0 See order Chief Complaint N20.0 See order M54.50 Chief Complaint N20.0 See order M54.50 M48.061 M54.12 Chief Complaint N20.0 See order M54.50 M48.061 M54.12 R flank pain, hx kidney stones Chief Complaint N20.0 See order M54.50 M48.061 M54.12 R flank pain, hx kidney stones m54.12 Chief Complaint N20.0 See order M54.50 M48.061 M54.12 R flank pain, hx kidney stones m54.12 n20.0 Chief Complaint See order M54.50 M48.061 M54.12 R flank pain, hx kidney stones m54.12 n20.0 f/u emg,mri results Chief Complaint * Routine f/u: 'heart stuart ok' * VALENTIN TORRE is being seen for chest pain. * Patient presents the office ambulatory with steady gait, is accompanied by his . Last evaluatedin clinic Dr. Trujillo March 2023. Following that office visit he had an uneventful elective cardiac catheterization with angiographically normal coronaries and LVEF of 50%. * Patient presents the office today were right radial cath site is healed without adverse sequela. Hehas had no recurrent chest pressure that was described to Dr. Trujillo. He currently is experiencingnephrolithiasis and has follow-up with urology this afternoon. He is asymptomatic hypotension today likely related to pain medication. He denies any dizziness or lightheadedness. * Reviewed recent cardiac catheterization findings. Discussed the importance of primary prevention. Current treated hypertension and optimally controlled hyperlipidemia by PCP. * He can follow-up with NO on an as-needed basis. Reason for Referral Reason EMG BUE Diagnosis 1 Spinal stenosis of l umbar region without neurogenic claudication (M48.061) Referral Organization [facility] Referring Provider First Name Мария Referring Provider Last Name David Referring Provider Specialty Nurse Pool hernández Referred Organization [facility] Referred Provider Primo Jenkins Referred Address [address] [place], [place],[address] Referred Provider Specialty Neurology Referral Priority Routine General Notes Leah Parada 11:03:40 AM >received, waiting for note to be locked before sending Additional Source Comments (unrecognized sect ion and content) No Status Records FoundNo Status Records FoundNo Status Records FoundNo Status Records FoundNo Status Records FoundNo Status Records FoundNo Status Records FoundNo Status Records FoundNo Status Records FoundNo Status Records FoundNo Status Records Found INFORMATION SOURCE (unrecogn ized section and content) DATE CREATED AUTHOR 05/09/2018 [facility] DATE CREATED AUTHOR AUTHOR'S ORGANIZ ATION 05/10/2018 [facility] DATE CREATED AUTHOR AUTHOR'S ORGANIZ ATION 03/29/2023 [facility] DATE CREATED AUTHOR AUTHOR'S ORGANIZ ATION 04/01/2023 [facility] DATE CREATED AUTHOR AUTHOR'S ORGANIZ ATION 04/05/2023 [facility] DATE CREATED AUTHOR AUTHOR'S ORGANIZ ATION 12/17/2023 [facility] DATE CREATED AUTHOR AUTHOR'S ORGANIZ ATION 12/18/2023 [facility] DATE CREATED AUTHOR AUTHOR'S ORGANIZ ATION 12/29/2023 [facility] EPIC DATE CREATED AUTHOR AUTHOR'S ORGANIZ ATION 01/18/2024 [facility] DATE CREATED AUTHOR AUTHOR'S ORGANIZ ATION 01/30/2024 [facility] DATE CREATED AUTHOR AUTHOR'S ORGANIZ ATION 02/03/2024 [facility] Care Teams (unrecognized sec tion and content) Team Status: Inactive Member Role Status Dates Sascha Sutton DO Primary Care Provider Active Adam Davis MD Attending Provider Active Team Status: Active Member Role Status Dates Sascha Sutton , DO Primary Care Provider Active Team Status: Inactive Member Role Status Dates Sascha Sutton , DO Primary Care Provider Active Christine Sanchez PLACEMENT COORDINATOR-C Attending Provider Active Team Status: Inactive Member Role Status Dates Sascha Cynthiageneosmani , DO Primary Care Provider Active KARIN Madrigal Attending Provider Active Team Status: Inactive Member Role Status Dates Sascha Mariegeneosmani , DO Primary Care Provider Active Melanie Trujillo DO Attending Provider Active Team Status: Inactive Member Role Status Dates Sascha Cynthiageneosmani , DO Primary Care Provider, Attending Simba pfeiffer Active Team Status: Inactive Member Role Status Dates Sascha Cynthiageneosmani , DO Primary Care Provider Active Edenilson Reinoso Jr, MD Emergency Provider Active Team Status: Inactive Member Role Status Dates Sascha Cynthiageneosmani , DO Primary Care Provider Active Romel Orta , DO Emergency Provider Active Team Status: Inactive Member Role Status Dates Sascha Cynthiacierra , DO Primary Care Provider Active Zac Muniz MD Attending Provider Active Team Status: Inactive Member Role Status Dates Sascha Cynthiageneosmani , DO Primary Care Provider Active Christine Sanchez NP-C Attending Provider Active Zac Muniz MD Referring Provider Active Team Status: Inactive Member Role Status Dates Sascha Cynthiageneosmani , DO Primary Care Provider Active Romel Davis MD Attending Provider Active Team Status: Inactive Member Role Status Dates Sascha Cynthiageneosmani , DO Primary Care Provider Active Start: September 12, 2023 End: September 12, 2023 Romel Davis MD Attending Provider Active St art: September 12, 2023 End: September 12, 2023 Team Status: Inactive Member Role Status Dates Sascha Cynthiageneosmani , Primary Care Provider Active Start: October 20, 2023 End: October 20, 2023 Zac Muniz MD Attending Provider Active St art: October 20, 2023 End: October 20, 2023 Team Status: Inactive Member Role Status Dates Sascha Cynthiageneosmani , Primary Care Provider Active Start: December 08, 2023 End: December 08, 2023 Romel Davis MD Attending Provider Active St art: December 08, 2023 End: December 08, 2023 Sales And Marketing Director Relationship Specialty Start Date End Date Herman Sascha TeaganDO [address] [facility], [place] [address] PCP - General Family Medicine 09/23/22 Team Status: Inactive Member Role Status Dates Sascha Sutton DO Primary Care Provide r, Attending Provider Active Start: December 15, 2023 End: December 15, 2023 Sales And Marketing Director Relationship Specialty Start Date End Date Sascha Sutton MD [address] [facility], [place] [address] PCP - General Family Medicine 12/28/23 Team Status: Inactive Member Role Status Dates Sascha Sutton DO Primary Care Provider Active Start: December 30, 2023 End: December 30, 2023 WILLOW Barros Attending Provider Active Start: December 30, 2023 End: December 30, 2023 Team Status: Inactive Member Role Status Dates Sascha Sutton DO Primary Care Provider Active Start: January 02, 2024 End: January 03, 2024 Edenilson Reinoso Jr, MD Emergency Provider Active Start: January 02, 2024 End: January 03, 2024 Team Status: Inactive Member Role Status Dates Sascha Sutton DO Primary Care Provider Active Start: January 10, 2024 End: January 10, 2024 WILLOW Barros Attending Provider Active Start: January 10, 2024 End: January 10, 2024 Team Status: Inactive Member Role Status Dates Sascha Sutton DO Primary Care Provider Active Start: January 11, 2024 End: January 11, 2024 Zac Muniz MD Attending Provider Active St art: January 11, 2024 End: January 11, 2024 Team Status: Inactive Member Role Status Dates Sascha Sutton DO Primary Care Provider Active Start: February 09, 2024 End: February 09, 2024 WILLOW Barros Attending Provider Active Start: February 09, 2024 End: February 09, 2024 Goals (unrecognized section and content) Goals may be documented in a n alternate sectionGoals may be documented in an alternate sectionGoals may be documented in an alternate sectionGoals may be documented in an alternate sectionGoals may be documented in an alternate sectionGoals may be documented in an alternate sectionGoals may be documented in an alternate sectionGoals may be documented in an alternate sectionGoals may be documented in an alternate section No data available for this section No data available for this sectionGoals may be documented in an alternate sectionGoals may be documented in an alternate sectionGoals may be documented in an alternate sectionGoals may be documented in an alternate section No data available for this sectionGoals may be documented in an alternate sectionGoals may be documented in an alternate sectionNot on filedocumented as of this encounterGoals may be documented in an alternate sectionGoals may be documented in an alternate sectionNo InformationGoals may be documented in an alternate sectionGoals may be documented in an alternate sectionGoals may be documented in an alternate section No data available for this section No data available for this sectionGoals may be documented in an alternate section Reason for Visit (unrecogniz ed section and content) Reason Comments [facility] FOR RECORDS PERTAINING TO PATIENTS WHO ARE OR HAVE BEEN ENROLLED IN A CHEMICAL DEPENDENCY/SUBSTANCEABUSE PROGRAM, SOME INFORMATION MAY BE OMITTED. This clinical summary was aggregated from multiple sources. Caution should be exercised in using it in the provision of clinical care. This summary normalizes information from multiple sources, and as a consequence, information in this document may materially change the coding, format and clinical context of patient data. In addition, data may be omitted in some cases. CLINICAL DECISIONS SHOULD BE BASED ON THE PRIMARY CLINICAL RECORDS. [employer] provides no warranty or guarantee of the accuracy or completeness of information in this document.
--- NOTE | 2024-02-16 07:15 | XR_ITS ---
The [address] [address] Patient Name: MARVA TORRE MRN: [id number] date: 1955 Sex: M Assigned Patient Location: [facility] Current Patient Location: [facility] Accession/Order Number: [id number] Exam Date: 02/16/2024 07:00 Report Date: 02/16/2024 07:26 At the request of: JANET MUNIZ Procedure: XR abdomen 1V EXAMINATION: XR abdomen 1V HISTORY: kidney stones COMPARISON: No relevant comparison available. FINDINGS: KIDNEY/URETER - RIGHT: Upper pole punctate nephrolith KIDNEY/URETER - LEFT: Lower pole punctate nephrolith PELVIS: No visible ureteral calcifications. Any visible calcifications favor phleboliths. BOWEL: No abnormal dilation or deviation. BONES: No acute abnormality. Transpedicular L4-L5 fusion OTHER: Negative. No abnormal gaseous collections. XR/XR abdomen 1V IMPRESSION: Bilateral punctate nephrolithiasis Electronically authenticated by: HOWIE KUMAR Date: 02/16/2024 07:26
[2024-02-16] MEDS: LACTATED RINGER'S SOLUTION 1,000 ML 50 ML IV (07:30)
[2024-02-16] MEDS: CIPROFLOXACIN IN 5 % DEXTROSE 400 MG/200 ML PIGGYBACK 200 MG IV (08:35)
--- NOTE | 2024-02-16 09:12 | P.URON_ITS ---
Urology Surgery Operative Note Operative Note Procedure Date: 02/16/24 Time Out Performed: yes Pre-op Diagnosis: Left nephrolithiasis Post-op Diagnosis: same as pre-op Procedures performed: 1. Left ESWL. Anesthesia: General-LMA Primary Surgeon: Zac Iglesias Complications: None Estimated blood loss (mL): 0 Findings: 3 stones in the left lower pole Specimens: None Drains: None Indications for Procedures: This gentleman has recurrent left-sided nephrolithiasis. There seem to be 3 stones in the lower pole. The largest measures 3 to 4 mm. He now presents for left ESWL. He has signed an informed consent after all risks were explained. Some of these risks include bleeding, perinephric hematoma, infection and anesthesia to name a few Detailed description of Procedure: The patient was brought to the Operating Room and placed on Siemens electromagnetic lithotripsy treatment table in the supine position. SCDs were placed on their lower extremities and turned on and functioning during the entire case. Timeout was done by all parties in the room. We all agreed upon the patient's identification and the planned procedures for this patient. General Anesthesia was then administered via LMA. Treatment head was then brought to the patient's correct side. While using flourscopy the stones were identified and lined up as a conglomerate into the crosshairs. We then began applying shocks. We started at power level 2.0 and increased to a maximum power level of 3.5. All 3 of the stones were receiving energy with each shock. He had significant fragmentation after 1100 shocks. We applied a total of 2000 shocks. Our last fluoroscopic image revealed no evidence of any formed stone r emaining. The procedure was then terminated. He was then transferred to a [facility] bed and wheeled to PACU in stable condition.
== END 2024-02-16 10:20 | disposition home or self-care (01) ==
PROVIDERS: PCP Family Medicine; Visit Provider Urology
PROC: (CPT 50590; principal; 2024-02-16 08:40)
DX: N20.0 Calculus of kidney (principal); E78.5 Hyperlipidemia, unspecified; M06.9 Rheumatoid arthritis, unspecified; M19.90 Unspecified osteoarthritis, unspecified site; M81.0 Age-related osteoporosis without current pathological fracture; Z85.840 Personal history of malignant neoplasm of eye; I10 Essential (primary) hypertension; Z79.01 Long term (current) use of anticoagulants; K21.9 Gastro-esophageal reflux disease without esophagitis; Z87.891 Personal history of nicotine dependence; Z87.442 Personal history of urinary calculi; R31.0 Gross hematuria; Q35.9 Cleft palate, unspecified
CPT/HCPCS: 50590; 36415; 74018; J1094; J2704

== ENCOUNTER 2024-08-27 07:01 | Outpatient (OUT) | payer MEDICARE, SELFPAY ==
--- OUTSIDE RECORDS SUMMARY | 2024-08-27 07:06 | XMS_ITS | CCD ---
Author Organization [facility] Care Team Providers Care 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 Name Role Phone REBEKAH REED Unavailable Unavailable REBEKAH REED Unavailable Unavailable DO Sascha Sutton Primary Care Provider [phone] MD Adam Davis Attending Provider [phone] Herman, DO Caicedo Primary Care Provider WILLOW Sanchez Attending Provider KARIN Ibrahim Attending Provider [phone] DO Sascha Sutton Primary Care Provider WILLOW Sanchez Attending Provider DO Sascha Sutton Primary Care Provider [phone] WILLOW Sanchez Attending Provider PAY ., DR FERNANDEZ Admitting Unavailable BALJINDER, DR PRIMO De Oliveira Consulting Unavailable HERMAN, DR SASCHA Candelaria Primary Care Unavailable PAY ., DR FERNANDEZ Attending Unavailable MAGDY .MATT Consulting UnavailSHAIKH Claritza Reveles Attending Unavailable SHAIKH Claritza MULTANI Admitting Unavailable BALJINDER, DR PRIMO De Oliveira Consulting Unavailable DR SASCHA SUTTON Primary Care Unavailable ROBERTA WOOD Consulting Unavailable JOSÉ MIGUEL NOVOA Consulting Unavailable SHAIKH Claritza MULTANI Consulting Unavailable GAVIN MINER Consulting Unavailable Sascha Sutton Unavailable Unavailable Unavailable DO Melanei Trujillo Attending Provider Dr. Alfonso Trujillo Attending Unava ilable Herman, Dr. Sascha Espinoza Primary Care Unava ildonaldo Trujillo, Dr. Alfonso Parham Attending Jennie Trujillo, Dr. Alfonso Parham Referring Unava miguel Sutton, Dr. Sascha Espinoza Primary Care Unava ilable Furlong, DO Sascha Primary Care Provider Furlong, DO Sascha Attending Provider MD Edenilson Reinoso Jr Emergency Provider DO Romel Orta Emergency Provider Unavai MD Zac Aguirre Attending Provider WILLOW Sanchez Attending Provider MD Zac Muniz Referring Provider SASCHA SUTTON Primary Care Physician Furlong, DO Sascha Primary Care Provider MD Zac Muniz Attending Provider Furlong, DO Sascha Primary Care Provider MD Zac Muniz Attending Provider Furlong, DO Sascha Primary Care Provider MD Romel Davis Attending Provider [phone] Furlong, DO Sascha Primary Care Provider MD Zac Muniz Attending Provider [phone] MD Romel Davis Attending Provider Furlong, DO Sascha Primary Care Provider MD Romel Davis Attending Provider MD Zac Muniz Attending Provider Furlong Sascha FERRELL Primary Care Provider Furlong, DO Sascha Primary Care Provider MD Romel Davis Attending Provider Furlong, DO Sascha Attending Provider SASCHA SUTTON Referring Unavailable FURLOOSMANI, SASCHA G Primary Care Unavailable Unavailable Primary Care Provider Unavailabl e Furlong MD, Sascha G Primary Care Provider WILLOW Hernandez Attending Provider Мария Hernandez Unavailable MD Edenilson Reinoso Jr Emergency Provider Furlong, DO Sascha Primary Care Provider MD Romel Davis Attending Provider Furlong, DO Sascha Attending Provider WILLOW Hernandez Attending Provider MD Edenilson Reinoso Jr Emergency Provider MD Zac Muniz Attending Provider FURLONG, SASCHA G Referring Unavailable FURLONG, SASCHA G Primary Care Unavailable FURLONG, SASCHA G Referring Unavailable FURLONG, SACSHA G Primary Care Unavailable FURLONG, SASCHA G Referring Unavailable FURLONG, SASCHA G Primary Care Unavailable Furlong, DO Sascha Primary Care Provider [phone] MD Mckenzie Khalil Attending Provider MD Romel Davis Attending Provider Furlong, DO Sascha Primary Care Provider WILLOW Hernandez Attending Provider Furlong, DO Sascha Primary Care Provider [phone] Furlong, DO Sascha Primary Care Provider FURLONG, SASCHA G Referring Unavailable FURLONG, SASCHA G Primary Care Unavailable FURLONG, SASCHA G Attending Unavailable FURLONG, SASCHA G Referring Unavailable FURLONG, SASCHA G Primary Care Unavailable Zac MUNIZ Attending Unavailable Zac MUNIZ Attending Unavailable Zac MUNIZ Attending Unavailable Zac MUNIZ Attending Unavailable LEAH ROA Attending Unavailable Daria Jimenez Attending Unavailable Zac MUNIZ Attending Unavailable Zac MUNIZ Attending Unavailable Zac MUNIZ Attending Unavailable Zac MUNIZ Admitting Unavailable DO Carlos Eden Attending Provider Furlong, DO Sascha Primary Care Provider MD Mckenzie Khalil Attending Provider Furlong, DO Sascha Primary Care Provider Furlong, DO Sascha Primary Care Provider MD Mckenzie Khalil Attending Provider MD Edenilson Mcleod Primary Care Provider [phone] MD Romel Davis Attending Provider Mckenzie Khalil Attending Unavailable Mckenzie Khalil Admitting Unavailable Furlong, Sascha Primary Care Unavailable Edenilson Reinoso Jr Attending Unavailable Furlong, Sascha Primary Care Unavailable Edenilson Reinoso Jr Admitting Unavailable Davis, Romel Admitting Unavailable Davis, Romel Attending Unavailable Edenilson Mcleod Primary Care Unavailable Mckenzie Khalil Admitting Unavailable Mckenzie Khalil Attending Unavailable Furlong, Sascha Primary Care Unavailable Furlong, Sascha Primary Care Unavailable Davis, Romel Admitting Unavailable Davis, Romel Attending Unavailable Carlos Eden Attending Unavailable Carlos Eden Admitting Unavailable Furlong, Sascha Primary Care Unavailable MunizZac Attending Unavailable Muniz, Zac Admitting Unavailable Furlong, Sascha Primary Care Unavailable Davis, Romel Attending Unavailable Davis, Romel Admitting Unavailable Furlong, Sascha Primary Care Unavailable Zac Muniz Attending Unavailable Muniz, Zac Admitting Unavailable Furlong, Sascha Primary Care Unavailable Davis, Romel Admitting Unavailable Davis, Romel Attending Unavailable Furlong, Sascha Primary Care Unavailable Мария Hernandez Attending Unavailable Мария Hernandez Admitting Unavailable Furlong, Sascha Primary Care Unavailable Furlong, Sascha Attending Unavailable Furlong, Sascha Admitting Unavailable Furlong, Sascha Primary Care Unavailable Davis, Romel Admitting Unavailable Davis, Romel Attending Unavailable Furlong, Sascha Primary Care Unavailable Muniz, Zac Attending Unavailable Muniz, Zac Admitting Unavailable Furlong, Sascha Primary Care Unavailable Мария Hernandez Admitting Unavailable Мария Hernandez Attending Unavailable Furlong, Sascha Primary Care Unavailable Zac Muniz Attending Unavailable Muniz, Zac Admitting Unavailable Mckenzie Khalil Attending Unavailable Furlong, Sascha Primary Care Unavailable Mckenzie Khalil Admitting Unavailable ZAIRA CAIN Attending Unavailable CARLOS EDEN Attending Unavailable CARLOS EDEN Attending Unavailable CARLOS EDEN Attending Unavailable MCKENZIE KHALIL Referring Unavailable KYRA CONKLIN Attending Unavailable Allergies Allergy Classification Reported Allergen(s) Allergy Type Date of Onset Reaction(s) Facility Calcium Carbonate (4 sources) Calcium Carbonate Drug Allergy 04-09-20 Nausea [facility] Cephalosporins (antibiotic) (8 sources) Cephalexin Drug Allergy 04-09-20 Unknown Reaction [facility] Magnesium (4 sources) Magnesium Drug Allergy 04-09-20 Nausea [facility] Opioid Agonists (4 sources) oxyCODONE Drug Allergy 04-09-20 Hallucinating [facility] Sulfonamides (antibiotic) (4 sources) Sulfonamides (Antibiotic) Drug Allergy 04-09-20 Rash [facility] (20 sources) cephalexin; Translations: [CEPHALEXIN] Drug Allergy 04-25-20 18 Unknown (qualifier value) [facility] Repository (20 sources) oxyCODONE; Translations: [OXYCODONE] Drug Allergy 04-25-20 18 Hallucinations (finding), Hallucinations [facility] Rep[facility] (20 sources) Sulfonamides (Antibiotic); Translations: [SULFA (SULFONAMIDE ANTIBIOTICS)] Propensity to adverse reactions to drug (disorder) 05-20-20 14 Other (See Comments) [facility] Repository (2 sources) ASPIRIN, BUFFERED; Translations: [ASPIRIN, BUFFERED] Propensity to adverse reactions to drug (disorder) 04-25-20 18 [facility] Rep[facility] (20 sources) Calcium Carbonate; Translations: [calcium carbonate] Drug Allergy 07-19-20 19 GI intolerance [facility] (20 sources) Cephalosporins (Antibiotic); Translations: [Cephalosporins] Allergy to substance 05-20-20 14 Other (See Comments) [facility] (20 sources) Magnesium; Translations: [magnesium] Drug Allergy 07-19-20 19 GI intolerance [facility] (1 source) Sulfonamides (Antibiotic) Drug allergy (disorder) [facility] Repository (4 sources) Sulfamethoxazole; Translations: [sulfa] Drug Allergy Unknown [facility] DO Work Phone: (8 sources) Sulfonamides (Antibiotic); Translations: [sulfa drugs] Drug allergy Unknown (qualifier value) [facility] (4 sources) Aspirin,Buffd-Willow cium Carb-Mag; Translations: [ASPIRIN,BUFFD-CA LCIUM CARB-MAG] Propensity to adverse reactions to drug 09-29-20 22 Vomiting [facility] (1 source) Aspirin Drug Allergy 10-13-20 15 [facility] (1 source) Sulfonamides (Antibiotic) Drug Allergy 05-20-20 14 Rash [facility] [employer] (1 source) Aspirin Drug Allergy Unknown [employer] Other (1 source) Sulfacetamide in [place] Drug allergy Unknown [facility] [place] [employer] Other Medications Current Medications Medication Drug Class(es) Dates Sig (Normalized) Sig (Original) acetaminophen 500 mg oral tablet (20 sources) Start: 05-09-2023 take 1 mg by mouth every six hours acetaminophen 500 mg Tab mg tab(s), Oral, q6hr, Refills(s) 0 Start Date: 05/09/23 Status: Ordered Start: 05-09-2023 take 2 tablets by mo uth three times daily as needed for pain acetaminophen (TYLENOL EXTRA STRENGTH) 500 mg tablet Take 2 tablets (1,000 mg total) by mouth 3 (three) times a day as needed for pain. 0 05/09/2023 Active Start: 03-31-2023 Acetaminophen Active 1000 MG PO 2-3 TIMES PER DAY March 31, 2023 12:00am Start: 03-31-2023 take 1000 mg by mout [...] oral tablet (20 sources) Opioid Agonist Start: 04-09-2024 End: 05-28-2024 take 1 tablet by mouth every six hours Hydrocodone-Acetaminophen Active 1 - 2 TAB PO Every 6 hours 30 April 10, 2024 Start: 05-03-2023 End: 03-29-2024 take 1 tablet by mouth every six hours Hydrocodone-Acetaminophen Discontinued 1 - 2 TAB PO Q6H 15 January 03, 2024 March 29, 2024 11:09am Start: 05-12-2019 End: 07-19-2019 take 1 tablet by mouth once daily at bedtime Hydrocodone-Acetaminophen (Melvin) 5-325 mg tablet Discontinued 1 TAB PO Daily at bedtime 14 May 12, 2019 July 19, 2019 10:35am Start: 04-25-2018 End: 11-05-2018 take 1 tablet by mouth every four to six hours Hydrocodone-Acetaminophen (Melvin) 5-325 mg tablet Discontinued 1 - 2 TAB PO EVERY 4-6 HOURS May 16, 2018 November 05, 2018 1:25pm aspirin 81 mg delayed release oral tablet (20 sources) Platelet Aggregation Inhibitor, Nonsteroidal Anti-inflammatory Drug Start: 04-02-2024 Aspirin (Adult Lo w Dose Aspirin) 81 mg tablet,delayed release (DR/EC) Active 81 MG PO Daily April 02, 2024 12:00am Start: 09-19-2023 take 1 mg by mouth e very twenty-four hours aspirin 81 mg oral capsule [...] tablet by mouth once daily Aspirin (Aspir-81) 8 1 mg Tablet,Delayed Release (Dr/Ec) Discontinued 325 MG [...] 0 Active carboxymethylcellulose 0.01 mg/mg ophthalmic gel (20 sources) Start: 03-31-2023 apply 1 drop(s) into [...] 2023 12:00am colchicine 0.6 mg oral tablet (20 sources) Start: 01-18-2024 take 0.6 mg by mouth once daily in the morning Colchicine Active 0.6 MG PO Every morning April 02, 2024 12:00am Start: 12-19-2023 colchicine 0.6 MG tablet Start: 09-30-2023 take 1 capsule by [facility] in the morning colchicine (MITIGARE) 0.6 mg capsule Take 1 capsule (0.6 mg total) by mouth in the morning. 0 09/30/2023 Active Colchicine 0.6 M G 5 mL Orally Active fexofenadine (7 sources) Histamine-1 Receptor Antagonist Start: 05-09-2023 Seema D OTC 24HR Oral, Daily, Refill(s) 0 Start Date: 05/09/23 Status: Ordered fexofenadine / Pseudoephedrine (20 sources) alpha-Adrenergic Agonist, Histamine-1 Receptor Antagonist Start: [...] Date: 05/09/23 Status: Ordered Start: 04-25-2018 take 1 mg by mouth twice daily Folic Acid Active 1 MG PO Twice daily April 25, 2018 [...] April 25, 2018 12:00am taken on sundays lisinopril 20 mg oral tablet (20 sources) [...] 2018 12:00am take 1 tablet by christopher every twelve hours Nabumetone 750 MG Oral [...] 2018 12:00am take 1 capsule by mo [facility] every twelve hours Omeprazole 40 MG 1 capsule Orally bid Active Potassium Bicarb-Citric Acid (Klor-Con/Ef) 25 mEq tablet, effervescent (17 sources) Start: 04-02-2024 Potassium Bicarb-Citric Acid (Klor-Con/Ef) 25 mEq tablet, effervescent Active 25 MEQ PO Twice daily April 02, 2024 12:00am potassium bicarbonate 25 meq effervescent oral tablet (2 sources) Start: 12-14-2023 take 1 tablet by mouth in the morning KLOR-CON/EF 25 mEq disintegrating tablet Take 1 tablet (25 mEq total) by mouth in the morning and 1 tablet (25 mEq total) before bedtime. 0 12/14/2023 Active Potassium Chloride (1 source) Klor-Con 10 Acti ve prednisoLONE acetate 10 mg/ml ophthalmic suspension (20 sources) Corticosteroid Start: 04-02-2024 take 1 drop(s) into the eye(s) three times daily Prednisolone Acetate (Pred Forte) 1 % drops,suspension Active 1 DROPS EYE-RIGHT Three times daily April 02, 2024 12:00am Start: 05-09-2023 prednisoLONE O ral, Daily, Refills(s) [...] 30-Mar-2023 DO Active Refresh Dry Eye Therapy (7 sources) Start: 05-09-2023 Refresh Dry Ey e [...] 0.4 mg oral capsule (20 sources) alpha-Adrenergic Sandy Start: 01-03-2024 End: 02-02-2024 take 1 capsule by mouth twice daily Flomax 0.4 mg Cap 0.4 mg = 1 cap(s), Oral, BID, X 30 day(s), # 60 cap(s), Refills(s) 0, [id number], cm, 09/19/23 9:41:00 EDT, Height/Length Dosing, 97.5, kg, 09/19/23 9:41:00 EDT, Weight Dosing Start Date: 01/03/24 Stop Date: 02/02/24 Status: Ordered Start: 05-09-2023 End: 06-08-2023 take 1 capsule by mouth twice daily Flomax 0.4 mg Cap 0.4 mg = 1 cap(s), Oral, BID, X 30 day(s), # 60 cap(s), Refills(s) 0, Pharmacy: [facility] [id number], 173, cm, 05/09/23 16:02:00 EDT, Height/Length Dosing, 97.5, kg, 05/09/23 16:02:00 EDT, Weight Dosing Start Date: 05/09/23 Stop Date: 06/08/23 Status: Ordered Start: 05-03-2023 End: 04-02-2024 Tamsulosin (Flomax) 0.4 mg c apsule Discontinued 0.4 MG PO Daily January 03, 2024 4:25am April 02, 2024 2:36pm administer 30 minutes after same meal each [...] acetonide 0.055 mg/actuat metered dose nasal spray (20 sources) Corticosteroid Start: 03-31-2023 Triamcinolone Acetonide (Nasal Allergy) 55 mcg Aerosol,[place] Active 1 SPRAY INTRANASAL Daily March 31, 2023 12:00am Start: 03-31-2018 Kenalog -40 mg March, 10 mg Completed/Discontinued Medications Medication Drug Class(es) Dates Sig (Normalized) Sig (Original) chlorhexidine gluconate 40 mg/ml medicated liquid soap (1 source) Hibiclens 4 % Externally Not-Taking/PRN ciprofloxacin 500 mg oral tablet (16 sources) Quinolone Antimicrobial Start: 4 End: 4 take 1 tablet by mouth every two hours Ciprofloxacin Hcl (Cipro) 500 mg tablet Discontinued 500 MG PO Q12H April 09, 2024 12:00am May 02, 2024 9:53am administer dose at least 2 hrs before/6 hrs after dairy products, calcium, zinc, and/or iron-containing products cyclobenzaprine hydrochloride 10 mg oral tablet (20 sources) Muscle Relaxant Start: 9 End: 9 take 10 mg by mouth three times daily Cyclobenzaprine Discontinued 10 MG PO Three times daily May 12, 2019 12:00am July 26, 2019 8:09am diazePAM 5 mg oral tablet (20 sources) Benzodiazepine Start: 9 End: 3 take 5 mg by mouth four times daily Diazepam Discontinued 5 MG PO Four times daily 19 09July 26, 2019 12:00am March 31, 2023 8:41am doxycycline hyclate 100 mg oral tablet (20 sources) Tetracycline-class Drug Start: 8 End: 8 take 100 mg by mouth twice daily Doxycycline Hyclate Discontinued 100 MG PO Twice daily 08 25July 10, 2018 12:00am November 05, 2018 1:17pm Effervescent Potassium 25 mEq oral tablet (5 sources) Start: 3 End: 4 take 1 tablet by mouth twice daily Effervescent Potassium 25 mEq oral tablet 25 mEq = 1 tab(s), Oral, BID, X 90 day(s), # 180 tab(s), Refills(s) 3, Pharmacy: [facility]acy #[id number], 173, cm, 09/19/23 9:41:00 EDT, [...] dose nasal spray (20 sources) Corticosteroid Start: 9 End: 3 take 1 spray(s) nasal route once daily Fluticasone Propionate Discontinued 1 SPRAY INTRANASAL Daily July 19, 2019 12:00am March 31, 2023 8:40am Left nostril only Hexachlorophene (1 source) Phisohex *please review for potential _update for e-prescription and drug interaction check* Not-Taking/PRN HYDROmorphone hydrochloride 4 mg oral tablet (20 sources) Opioid Agonist Start: 8 End: 8 take 1 tablet by mouth every six hours Hydromorphone (Dilaudid) 4 mg tablet Discontinued 4 MG PO Q6H April 29, 2018 November 05, 2018 1:25pm ketorolac tromethamine 10 mg oral tablet (7 sources) Nonsteroidal Anti-inflammatory Drug, Cyclooxygenase Inhibitor Start: 3 take 1 tablet by mouth twice daily as needed for pain ketorolac 10 mg Tab 10 mg = 1 tab(s), Oral, BID, PRN for pain, Take one tab by mouth up to twice daily for pain., # 30 tab(s), Refills(s) 0, Pharmacy: [facility] [id number], 173, cm, 05/09/23 16:02:00 EDT, Height/Length Dosing, 97.5, kg, 05/09/23 16:02:00 EDT, Weight Dosing Start Date: 05/09/23 Status: Ordered levoFLOXacin 500 mg oral tablet (20 sources) Quinolone Antimicrobial Start: 4 End: 4 take 500 mg by mouth once daily Levofloxacin Discontinued 500 MG PO Daily 5 January 03, 2024 1:00am March 29, 2024 11:11am methylPREDNISolone 4 mg oral tablet (20 sources) Corticosteroid Start: 3 End: 4 Methylprednisolone (Medrol (Nicolas)) 4 mg tablets,dose pack Discontinued 4 MG PO As Directed April 02, 2024 12:00am May 02, 2024 9:54am Start: 11-05-2018 End: 07-24-2019 take 1 tablet by mouth once Methylprednisolone (Medrol (Nicolas)) 4 mg tablets,dose pack Discontinued 1 dose pk PO per package directions July 19, 2019 10:35am July 24, 2019 3:25pm Medrol (Nicolas) 4 M G TABS USE DIRECTED. Quantity: 0 Refills: 0 Ordered: 30-Mar-2023 DO Active ondansetron 4 mg disintegrating oral tablet (20 sources) Serotonin-3 Receptor Antagonist Start: 05-03-2023 End: 03-29-2024 take 4 mg by mouth every eight hours Ondansetron Discontinued 4 MG PO Q8H January 03, 2024 4:25am March 29, 2024 11:10am Start: 04-25-2018 End: 11-05-2018 Ondansetron (Zofran Odt) 4 m g Tablet,Disintegrating Discontinued 4 MG PO EVERY 8-12 HOURS April 25, 2018 12:00am November 05, 2018 1:20pm Vitamin B Complex (1 source) Vitamin B Comple x - as directed Orally Not-Taking/PRN Vitamin D 1000 UNIT (1 source) take 1 tablet by christopher th once daily as needed Vitamin D 1000 UNIT 1 tablet Orally Once a day *please review for potential _update for e-prescription and drug interaction check* Not-Taking/PRN vitamin e d-alpha 400 unt oral capsule (1 source) take 1 capsule by mo uth every twenty-four hours Vitamin E 400 UNIT 1 capsule Orally Once a day for 30 day(s) Not-Taking/PRN Problems Active Problems Problem Classification Problem Date Documented Da te Episodic/Chronic Abdominal hernia (1 source) Hiatal hernia; Translations: [Diaphragmatic hernia without obstruction or gangrene] Episodic Acquired foot deformities (1 source) Pronation deformity of the foot; Translations: [Other acquired deformities of right foot] 12-28-2023 Episodic Acute and unspecified renal failure (20 sources) Injury of kidney; Translations: [Acute kidney failure, unspecified] 05-03-2023 Episodic Calculus of urinary tract (20 sources) Calculus of ureter; Translations: [Calculus of ureter] Onset: 8 05-03-2023 Episodic Cancer; other and unspecified primary (2 sources) 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 Coagulation and hemorrhagic disorders (6 sources) Lupus anticoagulant disorder; Translations: [Primary hypercoagulable state] Onset: 2 12-14-2023 Chronic Coronary atherosclerosis and other heart disease (1 source) Atherosclerotic heart disease of [place] coronary artery without angina pectoris; Translations: [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] Onset: 3 Chronic Diseases of white blood cells (20 sources) Leukocytosis; Translations: [Elevated white blood cell count, unspecified] 01-03-2024 Chronic Disorders of lipid metabolism (10 sources) Hyperlipidemia, unspecified; Translations: [Hyperlipidemia] Onset: 3 12-14-2023 Chronic Esophageal disorders (1 source) Diffuse spasm of esophagus; Translations: [Dyskinesia of esophagus] Chronic Esophageal disorders (1 source) Esophagitis; Translations: [Esophagitis, unspecified] Episodic Essential hypertension (9 sources) Essential (primary) hypertension; Translations: [Hypertensive disorder] Onset: 7 12-14-2023 Chronic Genitourinary symptoms and ill-defined conditions (1 source) Incontinence without sensory awareness; Translations: [Incontinence without sensory awareness] Onset: 4 Chronic Genitourinary symptoms and ill-defined conditions (10 sources) Blood in urine; Translations: [Gross hematuria] Onset: 3 Episodic Headache; including migraine (1 source) Cluster headache; Translations: [Cluster headache syndrome, unspecified, not intractable] Onset: 2 09-29-2022 Chronic Hyperplasia of prostate (4 sources) Benign prostatic hypertrophy without outflow obstruction; Translations: [Benign prostatic hyperplasia without lower urinary tract symptoms] Onset: 4 Chronic Inflammation; infection of eye (except that caused by tuberculosis or sexually transmitteddisease) (2 sources) Iritis 01-19-2024 Episodic Nonspecific chest pain (7 sources) Other chest pain; Translations: [Chest pain] Onset: 3 Episodic Osteoarthritis (9 sources) Osteoarthritis of knee; Translations: [Osteoarthritis of knee, unspecified] Onset: 2 09-29-2022 Chronic Osteoporosis (2 sources) Osteoporosis 01-19-2024 Chronic Other acquired deformities (20 sources) Lumbar spondylolisthesis; Translations: [Spondylolisthesis, lumbar region] 07-25-2019 Episodic Other acquired deformities (20 sources) Spondylolisthesis, lumbar region; Translations: [Spondylolisthesis] 02-09-2024 Episodic Other aftercare (1 source) Other rn long term care (current) drug therapy; Translations: [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 [employer] SHIPPING CURRENT DRUG THERAPY] Onset: 3 Episodic Other aftercare (1 source) intermediate manager (current) use of aspirin; Translations: [SUPERVISOR [employer] CURRENT USE OF ASPIRIN] Onset: 3 Episodic Other aftercare (1 source) High risk drug monitoring status; Translations: [intermediate manager (current) use of opiate analgesic] Episodic Other [...] Episodic Other diseases of kidney and ureters (8 sources) Hydronephrosis; Translations: [Unspecified hydronephrosis] Onset: 4 05-09-2023 Episodic Other ear and sense organ disorders (1 source) Hearing loss; Translations: [Unspecified hearing loss, unspecified ear] Onset: 2 09-29-2022 Chronic Other ear and sense organ disorders (1 source) Decreased hearing ; Translations: [Unspecified hearing loss, bilateral] Chronic Other gastrointestinal disorders (20 sources) Dysphagia; Translations: [Dysphagia, unspecified] 04-26-2018 Episodic Other inflammatory condition of skin (2 sources) Lupus erythematosus 01-19-2024 Chronic Other lower respiratory disease (1 source) Other forms of dyspnea; Translations: [OTHER FORMS OF DYSPNEA] Onset: 3 Episodic Other lower respiratory disease (3 sources) Dyspnea on exertion; Translations: [Shortness of breath] Episodic Other nervous system disorders (20 sources) Piriformis syndrome; Translations: [Lesion of sciatic nerve, unspecified lower limb] 05-12-2019 Chronic Other nervous system disorders (20 sources) Lesion of ulnar nerve, right upper limb; Translations: [Lesion of ulnar nerve] Onset: 4 12-14-2023 Chronic Other nervous system disorders (1 source) Carpal tunnel syndrome; Translations: [Carpal tunnel syndrome, unspecified upper limb] Onset: 8 09-29-2022 Chronic Other nervous system disorders (1 source) Luo's metatarsalgia; Translations: [Lesion of plantar nerve, unspecified lower limb] Onset: 2 09-29-2022 Chronic Other nervous system disorders (16 sources) Chronic pain; Translations: [Other chronic pain] 04-11-2024 Chronic Other nervous system disorders (3 sources) Carpal tunnel syndrome of left wrist; Translations: [Carpal tunnel syndrome, left upper limb] Chronic Other nervous system disorders (1 source) Carpal tunnel syndrome of right wrist; Translations: [Carpal tunnel syndrome, right upper limb] Chronic Other nervous system disorders (20 sources) Compression neuropathy of upper limb; Translations: [Lesion of ulnar nerve, right upper limb] 02-09-2024 Chronic Other nervous system disorders (20 sources) Other chronic pain; Translations: [Other chronic pain] 04-11-2024 Chronic Other nervous system disorders (1 source) Paresthesia; Translations: [Paresthesia of skin] 12-14-2023 Episodic Other nervous system disorders (3 sources) Finding of hand region; Translations: [Tremor, unspecified] 07-12-2024 Episodic Other nervous system disorders (3 sources) Tremor, unspecified; Translations: [Abnormal involuntary movements] 07-12-2024 Episodic Other non-traumatic joint disorders (1 source) [...] conditions (not mental disorders or infectious disease) (2 sources) Abnormal electrocardiogram [ECG] [EKG]; Translations: [Encounter for screening for malignant neoplasm of prostate] Onset: 3 Episodic Other upper respiratory disease (1 source) Allergic rhinitis; Translations: [Allergic rhinitis, unspecified] Onset: 7 09-29-2022 Chronic Residual codes; unclassified (1 source) Postprocedural state finding; Translations: [Other specified postprocedural states] Episodic Residual codes; unclassified (1 source) Other specified postprocedural states Episodic Rheumatoid arthritis and related disease (5 sources) Rheumatoid arthritis; Translations: [Rheumatoid arthritis] 01-19-2024 Chronic Screening and history of mental health and substance abuse codes (4 sources) Personal history of nicotine dependence; Translations: [Ex-smoker] Onset: 3 Episodic Comment on above: quit in the ; Spondylosis; intervertebral disc disorders; other back problems (20 sources) Degeneration of cervical intervertebral disc; Translations: [Other cervical disc degeneration, unspecified cervical region] 01-19-2024 Chronic Spondylosis; intervertebral disc disorders; other back problems (20 sources) Lumbar radiculopathy; Translations: [Radiculopathy, lumbar region] Onset: 2 05-12-2019 Episodic Systemic lupus erythematosus and connective tissue disorders (8 sources) Systemic lupus erythematosus, unspecified; Translations: [Autoimmune connective tissue disorder] Onset: 2 12-14-2023 Chronic Thyroid disorders (1 source) Nontoxic single thyroid nodule; Translations: [Nontoxic single thyroid nodule] Onset: 4 Chronic Thyroid disorders (20 sources) Mass of thyroid gland; Translations: [Other specified disorders of thyroid] 03-29-2024 Episodic Unclassified (1 source) Unknown / UNK(Unknown) Onset: 8 Unclassified (2 sources) Low back pain, unspecified; Translations: [Low back pain, unspecified] Onset: 4 Unclassified (2 sources) Patient encounter status 03-20-2024 Unclassified (1 source) MAW Onset: 4 Unclassified (1 source) Spinal stenosis, lumbar region without neurogenic claudication; Translations: [Spinal stenosis, lumbar region without neurogenic claudication] Onset: 4 Unclassified (1 source) Low back pain, unspecified; Translations: [Low back pain, unspecified] Onset: 4 Unclassified (1 source) Pain in right hip; Translations: [Pain in right hip] Onset: 3 Unclassified (1 source) Sjogren syndrome, unspecified; Translations: [Sjogren syndrome, unspecified] Onset: 3 Past or Other Problems Problem Classification Problem Date Documented Date Episodic/Chronic Abdominal pain (1 source) Unspecified abdominal pain; Translations: [Unspecified abdominal pain] Onset: 01-02-2024 Episodic Cancer; other and unspecified primary (1 source) [...] other specified sites] Onset: 10-13-2015 09-29-2022 Episodic Other connective tissue disease (1 source) Right rotator cuff syndrome; Translations: [Unspecified rotator cuff tear or rupture of right shoulder, not specified as traumatic] Onset: 11-21-2008 09-29-2022 Episodic Other injuries and conditions due to external causes (1 source) Other specified injuries of head, initial encounter; Translations: [OTH SPEC INJURIES HEAD INITIAL ENC] Onset: 04-13-2022 Episodic Other nutritional; endocrine; and metabolic disorders [...] Test Name Value Interpretation Reference Range Facility Alanine aminotransferase [En zymatic activity/volume] in Serum or PlasmaOrdered By: Romel Davis on 07-03-2024 ALT [Catalytic activity/Vol] 21 U/L 7-52 [facility] Comment on above: Performed By: #### U 24 NA, COL T V, CREA24 #### [place] [address] [place] #### PHOS 24HRU, CITRIC UR, U24 CA, URIC 24HRU, OXAL 24HRU, MAG 24HRU #### [facility] , Albumin [Mass/volume] in Ser um or Plasma by Bromocresol green (BCG) dye binding methoOrdered By: Romel Davis on 07-03-2024 Albumin BCG dye [Mass/Vol] 4.2 g/dL 3.5-5.7 [facility] Alkaline phosphatase [Enzyma tic activity/volume] in Serum or PlasmaOrdered By: Romel Mendezrow on 07-03-2024 ALP [Catalytic activity/Vol] 85 U/L 34-104 [facility] Comment on above: Result Comment: PERF ORMED BY: [place] [address] PATHOLOGIST ALARM MECHANISM ADJUSTER OLMAN ALBARRAN M.D. Performed By: #### U 24 NA, COL T V, CREA24 #### [address] #### PHOS 24HRU, CITRIC UR, U24 CA, URIC 24HRU, OXAL 24HRU, MAG 24HRU #### [facility] , Aspartate aminotransferase [ Enzymatic activity/volume] in Serum or PlasmaOrdered By: Romel Davis on 07-03-2024 AST [Catalytic activity/Vol] 16 U/L 13-39 [facility] Comment on above: Performed By: #### U 24 NA, COL T V, CREA24 #### [facility] [address] [place] [address] #### PHOS 24HRU, CITRIC UR, U24 CA, URIC 24HRU, OXAL 24HRU, MAG 24HRU #### [facility] , Automated basophil %Ordered By: Romel Davis on 07-03-2024 Basophils/100 WBC (Bld) 0.5 % . [facility] Comment on above: Performed By: #### U 24 NA, COL T V, CREA24 #### [facility] [address] [place] [address] [place] #### PHOS 24HRU, CITRIC UR, U24 CA, URIC 24HRU, OXAL 24HRU, MAG 24HRU #### [facility] , Automated basophil countOrde red By: Romel Davis on 07-03-2024 Basophils (Bld) [#/Vol] 0.0 10*3/uL 0.0-0.2 [facility] Comment on above: Performed By: #### U 24 NA, COL T V, CREA24 #### [facility] [address] [place] [address] [place] #### PHOS 24HRU, CITRIC UR, U24 CA, URIC 24HRU, OXAL 24HRU, MAG 24HRU #### [facility] , Automated blood monocyte cou ntOrdered By: Romel Davis on 07-03-2024 Monocytes (Bld) [#/Vol] 0.4 10*3/uL 0.0-0.8 [facility] Comment on above: Performed By: #### U 24 NA, COL T V, CREA24 #### [facility] [address] [place] [address] [place] #### PHOS 24HRU, CITRIC UR, U24 CA, URIC 24HRU, OXAL 24HRU, MAG 24HRU #### [facility] , Automated eosinophil %Ordere d By: Romel Davis on 07-03-2024 Eosinophils/100 WBC (Bld) 1.1 % . [facility] Comment on above: Performed By: #### U 24 NA, COL T V, CREA24 #### [facility] [address] [place] [address] [place] #### PHOS 24HRU, CITRIC UR, U24 CA, URIC 24HRU, OXAL 24HRU, MAG 24HRU #### [facility] , Automated eosinophil countOr dered By: Romel Davis on 07-03-2024 Eosinophils (Bld) [#/Vol] 0.1 10*3/uL 0.0-0.45 [facility] Comment on above: Performed By: #### U 24 NA, COL T V, CREA24 #### [facility] [address] [place] [address] [place] #### PHOS 24HRU, CITRIC UR, U24 CA, URIC 24HRU, OXAL 24HRU, MAG 24HRU #### [facility] , Automated monocyte %Ordered By: Romel Davis on 07-03-2024 Monocytes/100 WBC (Bld) 7.9 % . [facility] Comment on above: Performed By: #### U 24 NA, COL T V, CREA24 #### [facility] [address] [place] [address] [place] #### PHOS 24HRU, CITRIC UR, U24 CA, URIC 24HRU, OXAL 24HRU, MAG 24HRU #### [facility] , Automated neutrophil %Ordere d By: Romel Davis on 07-03-2024 Neutrophils/100 WBC (Bld) 76.5 % . [facility] Comment on above: Performed By: #### U 24 NA, COL T V, CREA24 #### [facility] [address] [place] [address] [place] #### PHOS 24HRU, CITRIC UR, U24 CA, URIC 24HRU, OXAL 24HRU, MAG 24HRU #### [facility] , Bacteria [Presence] in Urine by AutomatedOrdered By: Romel Davis on 07-03-2024 Bacteria Auto Ql (U) None seen [HPF] None Seen [facility] Bilirubin Test strip Ql (U)O rdered By: Romel Davis on 07-03-2024 Bilirubin Ql (U) Negative Negative [facility] Bilirubin.total [Mass/volume ] in Serum or PlasmaOrdered By: Romel Davis on 07-03-2024 Bilirubin [Mass/Vol] 0.5 mg/dL 0.3-1.0 [facility] Comment on above: Performed By: #### U 24 NA, COL T V, CREA24 #### [facility] [address] [place] [address] [place] #### PHOS 24HRU, CITRIC UR, U24 CA, URIC 24HRU, OXAL 24HRU, MAG 24HRU #### [facility] , Calcium [Mass/volume] in Ser um or PlasmaOrdered By: Romel Davis on 07-03-2024 Calcium [Mass/Vol] 8.7 mg/dL 8.6-10.3 [facility] Comment on above: Performed By: #### U 24 NA, COL T V, CREA24 #### [facility] [address] [place] [address] #### PHOS 24HRU, CITRIC UR, U24 CA, URIC 24HRU, OXAL 24HRU, MAG 24HRU #### [facility] , Carbon dioxide, total [Moles /volume] in Serum or PlasmaOrdered By: Romel Dvais on 07-03-2024 CO2 [Moles/Vol] 22.6 mmol/L 21.0-31.0 [facility] Comment on above: Performed By: #### U 24 NA, COL T V, CREA24 #### [facility] [address] [place] [address] #### PHOS 24HRU, CITRIC UR, U24 CA, URIC 24HRU, OXAL 24HRU, MAG 24HRU #### [facility] , Chloride [Moles/volume] in S ace or PlasmaOrdered By: Romel Davis on 07-03-2024 Chloride [Moles/Vol] 105 mmol/L 98-107 [facility] Comment on above: Performed By: #### U 24 NA, COL T V, CREA24 #### [facility] [address] [place] [address] #### PHOS 24HRU, CITRIC UR, U24 CA, URIC 24HRU, OXAL 24HRU, MAG 24HRU #### [facility] , Color of Urine by AutoOrdere d By: Romel Davis on 07-03-2024 Color (U) Yellow Yellow [facility] Comment on above: Order Comment: URINE COLLECTION TIME (HRS): 24 URINE VOLUME (MILLILTERS): 2960 Performed By: #### U 24 NA, COL T V, CREA24 #### [facility] [address] [place] [address] #### PHOS 24HRU, CITRIC UR, U24 CA, URIC 24HRU, OXAL 24HRU, MAG 24HRU #### [facility] , Complement C3on 07-03-2024 Complement C3 127 mg/dL Normal 82-167 [facility] Comment on above: Result Comment: Perf ormed at: [address] [id number] [employer]: Richy Ardon PhD, Phone: [phone] Performed By: #### U 24 NA, COL T V, CREA24 #### [address] #### PHOS 24HRU, CITRIC UR, U24 CA, URIC 24HRU, OXAL 24HRU, MAG 24HRU #### [facility] , Complement C4on 07-03-2024 Complement C4 15 mg/dL Normal 12-38 [facility] Comment on above: Result Comment: Perf ormed at: [address] [id number] [employer]: Richy Ardon PhD, Phone: [phone] PERFORMED BY: [place] [address] PATHOLOGIST ALARM MECHANISM ADJUSTER OLMAN ALBARRAN M.D. Performed By: #### U 24 NA, COL T V, CREA24 #### [address] #### PHOS 24HRU, CITRIC UR, U24 CA, URIC 24HRU, OXAL 24HRU, MAG 24HRU #### [facility] , Complement Total (CH50)on Complement Total (CH50) 56 Normal >41 [facility] Comment on above: Result Comment: Age Male [...] determine out of range values. Performed at: [address] [id number] [employer]: Richy Ardon PhD, Phone: [phone] PERFORMED BY: [place] [address] PATHOLOGIST ALARM MECHANISM ADJUSTER OLMAN ALBARRAN M.D. Performed By: #### U 24 NA, COL T V, CREA24 #### [address] #### PHOS 24HRU, CITRIC UR, U24 CA, URIC 24HRU, OXAL 24HRU, MAG 24HRU #### [facility] , Complete Blood Count Auto Di ffon 07-03-2024 Mean Corpuscular HGB Conc 34.2 g/dL Normal 32.5-35.6 [facility] Comment on above: Performed By: #### U 24 NA, COL T V, CREA24 #### [address] #### PHOS 24HRU, CITRIC UR, U24 CA, URIC 24HRU, OXAL 24HRU, MAG 24HRU #### [facility] , NRBC% 0.1 /100{WBC} Normal 0-0.5 [facility] Comment on above: Performed By: #### U 24 NA, COL T V, CREA24 #### [place] [address] [place] #### PHOS 24HRU, CITRIC UR, U24 CA, URIC 24HRU, OXAL 24HRU, MAG 24HRU #### [facility] , Comprehensive Metabolic Pane [facility] 07-03-2024 Albumin [Mass/Vol] 4.2 g/dL Normal 3.5-5.7 [facility] Comment on above: Performed By: #### U 24 NA, COL T V, CREA24 #### [place] [address] [place] #### PHOS 24HRU, CITRIC UR, U24 CA, URIC 24HRU, OXAL 24HRU, MAG 24HRU #### [facility] , GFR/1.73 sq M.predicted MDRD (S/P/Bld) [Vol rate/Area] mL/min/{1.73_m2} Normal [facility] Comment on above: Performed By: #### U 24 NA, COL T V, CREA24 #### [facility] [address] [place] [address] #### PHOS 24HRU, CITRIC UR, U24 CA, URIC 24HRU, OXAL 24HRU, MAG 24HRU #### [facility] , Creatinine [Mass/volume] in Serum or PlasmaOrdered By: Romel Davis on 07-03-2024 Creatinine [Mass/Vol] 0.87 mg/dL 0.70-1.30 [facility] Comment on above: Performed By: #### U 24 NA, COL T V, CREA24 #### [facility] [address] [place] [address] #### PHOS 24HRU, CITRIC UR, U24 CA, URIC 24HRU, OXAL 24HRU, MAG 24HRU #### [facility] , Dipstick and Microscopicon 0 07-03-2024 Bacteria,Urine None Seen Normal None Seen [facility] Comment on above: Order Comment: URINE COLLECTION TIME (HRS): 24 URINE VOLUME (MILLILTERS): 2960 Performed By: #### U 24 NA, COL T V, CREA24 #### [facility] [address] [place] [address] #### PHOS 24HRU, CITRIC UR, U24 CA, URIC 24HRU, OXAL 24HRU, MAG 24HRU #### [facility] , Bilirubin,Urine Negative Normal Negative [facility] Comment on above: Order Comment: URINE COLLECTION TIME (HRS): 24 URINE VOLUME (MILLILTERS): 2960 Performed By: #### U 24 NA, COL T V, CREA24 #### [facility] [address] [place] [address] [place] #### PHOS 24HRU, CITRIC UR, U24 CA, URIC 24HRU, OXAL 24HRU, MAG 24HRU #### [facility] , Glucose Ql (U) Normal Normal Normal [facility] Comment on above: Order Comment: URINE COLLECTION TIME (HRS): 24 URINE VOLUME (MILLILTERS): 2960 Performed By: #### U 24 NA, COL T V, CREA24 #### [address] #### PHOS 24HRU, CITRIC UR, U24 CA, URIC 24HRU, OXAL 24HRU, MAG 24HRU #### [facility] , Hyaline Casts,Urine 9-19 High 0-8 [facility] Comment on above: Order Comment: URINE COLLECTION TIME (HRS): 24 URINE VOLUME (MILLILTERS): 2960 Performed By: #### U 24 NA, COL T V, CREA24 #### [address] #### PHOS 24HRU, CITRIC UR, U24 CA, URIC 24HRU, OXAL 24HRU, MAG 24HRU #### [facility] , Mucus,Urine 1+ Critically abnormal [facility] Comment on above: Order Comment: URINE COLLECTION TIME (HRS): 24 URINE VOLUME (MILLILTERS): 2960 Result Comment: PERF ORMED BY: [place] [address] PATHOLOGIST ALARM MECHANISM ADJUSTER OLMAN ALBARRAN M.D. Performed By: #### U 24 NA, COL T V, CREA24 #### [address] #### PHOS 24HRU, CITRIC UR, U24 CA, URIC 24HRU, OXAL 24HRU, MAG 24HRU #### [facility] , Nitrite,Urine Negative Normal Negative [facility] Comment on above: Order Comment: URINE COLLECTION TIME (HRS): 24 URINE VOLUME (MILLILTERS): 2960 Performed By: #### U 24 NA, COL T V, CREA24 #### [address] #### PHOS 24HRU, CITRIC UR, U24 CA, URIC 24HRU, OXAL 24HRU, MAG 24HRU #### [facility] , Occult Blood,Urine Negative Normal Negative [facility] Comment on above: Order Comment: URINE COLLECTION TIME (HRS): 24 URINE VOLUME (MILLILTERS): 2960 Performed By: #### U 24 NA, COL T V, CREA24 #### [address] #### PHOS 24HRU, CITRIC UR, U24 CA, URIC 24HRU, OXAL 24HRU, MAG 24HRU #### [facility] , Protein,Urine Trace High Negative [facility] Comment on above: Order Comment: URINE COLLECTION TIME (HRS): 24 URINE VOLUME (MILLILTERS): 2960 Performed By: #### U 24 NA, COL T V, CREA24 #### [facility] [address] [place] [address] #### PHOS 24HRU, CITRIC UR, U24 CA, URIC 24HRU, OXAL 24HRU, MAG 24HRU #### [facility] , RBC,Urine 1-2 Normal 0-4 [facility] Comment on above: Order Comment: URINE COLLECTION TIME (HRS): 24 URINE VOLUME (MILLILTERS): 2960 Performed By: #### U 24 NA, COL T V, CREA24 #### [address] #### PHOS 24HRU, CITRIC UR, U24 CA, URIC 24HRU, OXAL 24HRU, MAG 24HRU #### [facility] , Specificy [place],Urine 1.027 Normal 1.001-1.03 0 [facility] Comment on above: Order Comment: URINE COLLECTION TIME (HRS): 24 URINE VOLUME (MILLILTERS): 2960 Performed By: #### U 24 NA, COL T V, CREA24 #### [facility] [address] [place] [address] #### PHOS 24HRU, CITRIC UR, U24 CA, URIC 24HRU, OXAL 24HRU, MAG 24HRU #### [facility] , Squamous Epithelial Cell,Urine 1-2 Normal 0-2 [facility] Comment on above: Order Comment: URINE COLLECTION TIME (HRS): 24 URINE VOLUME (MILLILTERS): 2960 Performed By: #### U 24 NA, COL T V, CREA24 #### [address] #### PHOS 24HRU, CITRIC UR, U24 CA, URIC 24HRU, OXAL 24HRU, MAG 24HRU #### [facility] , Urobilinogen,Urine 2 mg/dL High Normal [facility] Comment on above: Order Comment: URINE COLLECTION TIME (HRS): 24 URINE VOLUME (MILLILTERS): 2960 Performed By: #### U 24 NA, COL T V, CREA24 #### [address] #### PHOS 24HRU, CITRIC UR, U24 CA, URIC 24HRU, OXAL 24HRU, MAG 24HRU #### [facility] , WBC,Urine 1-2 Normal 0-4 [facility] Comment on above: Order Comment: URINE COLLECTION TIME (HRS): 24 URINE VOLUME (MILLILTERS): 2960 Performed By: #### U 24 NA, COL T V, CREA24 #### [address] #### PHOS 24HRU, CITRIC UR, U24 CA, URIC 24HRU, OXAL 24HRU, MAG 24HRU #### [facility] , Epithelial cells.squamous [# /area] in Urine sediment by Automated countOrdered By: Romel Davis on 07-03-2024 Epithelial cells.squamous Auto (Urine sed) [#/Area] 1-2 [HPF] 0-2 [facility] Erythrocyte Sedimentation Ra bruno 07-03-2024 ESR (Bld) [Velocity] 7 mm/h Normal 0-19 [facility] Comment on above: Result Comment: PERF ORMED BY: [place] [address] PATHOLOGIST ALARM MECHANISM ADJUSTER OLMAN ALBARRAN M.D. Performed By: #### U 24 NA, COL T V, CREA24 #### [place] [address] [place] #### PHOS 24HRU, CITRIC UR, U24 CA, URIC 24HRU, OXAL 24HRU, MAG 24HRU #### [facility] , Erythrocyte distribution wid th [Ratio] by Automated countOrdered By: Romel Davis on 07-03-2024 Erythrocyte distribution width (RBC) [Ratio] 15.6 % High 12.0-14.8 [facility] Comment on above: Performed By: #### U 24 NA, COL T V, CREA24 #### [facility] [address] #### PHOS 24HRU, CITRIC UR, U24 CA, URIC 24HRU, OXAL 24HRU, MAG 24HRU #### [facility] , Erythrocyte sedimentation ra te by Photometric methodOrdered By: Romel Davis on 07-03-2024 ESR Photometric method (Bld) [Velocity] 7 mm/hr 0-19 [facility] Erythrocytes [#/area] in Uri ne sediment by Automated countOrdered By: Romel Davis on 07-03-2024 RBC Auto (Urine sed) [#/Area] 1-2 [HPF] 0-4 [facility] Erythrocytes [#/volume] in B lood by Automated countOrdered By: Rmoel Davis on 07-03-2024 RBC (Bld) [#/Vol] 5.10 10*6/uL 3.90-5.60 [facility] Comment on above: Performed By: #### U 24 NA, COL T V, CREA24 #### [facility] [address] [place] [address] [place] #### PHOS 24HRU, CITRIC UR, U24 CA, URIC 24HRU, OXAL 24HRU, MAG 24HRU #### [facility] , Glucose [Mass/volume] in Ser um or PlasmaOrdered By: Romel Davis on 07-03-2024 Glucose [Mass/Vol] 136 mg/dL High 70-100 [facility] Comment on above: ADA recommended refe rence rangeRandom Glucose Reference Range is dependent on time and content of last meal. Glucose of more than 200 mg/dL in a nonstressed, ambulatory subject supports the diagnosis of Diabetes Mellitus. Result Comment: [facility] Glucose Reference Range is dependent on time and content of last meal. Glucose of more than 200 mg/dL in a nonstressed, ambulatory subject supports the diagnosis of Diabetes Mellitus. ADA recommended reference range Performed By: #### U 24 NA, COL T V, CREA24 #### [address] #### PHOS 24HRU, CITRIC UR, U24 CA, URIC 24HRU, OXAL 24HRU, MAG 24HRU #### [facility] , Glucose [Mass/volume] in Uri ne by Test stripOrdered By: Romel Davis on 07-03-2024 Glucose Test strip (U) [Mass/Vol] Normal mg/dL Normal [facility] Hematocrit [Volume Fraction] of Blood by Automated countOrdered By: Romel Davis on 07-03-2024 Hematocrit (Bld) [Volume fraction] 44.6 % 38.8-50.0 [facility] Comment on above: Performed By: #### U 24 NA, COL T V, CREA24 #### [address] #### PHOS 24HRU, CITRIC UR, U24 CA, URIC 24HRU, OXAL 24HRU, MAG 24HRU #### [facility] , Hemoglobin Test strip Ql (U) Ordered By: Romel Davis on 07-03-2024 Hemoglobin Ql (U) Negative Negative [facility] Hemoglobin [Mass/volume] in BloodOrdered By: Romel Davis on 07-03-2024 Hemoglobin (Bld) [Mass/Vol] 15.3 g/dL 13.0-17.0 [facility] Comment on above: Performed By: #### U 24 NA, COL T V, CREA24 #### [place] [address] [place] #### PHOS 24HRU, CITRIC UR, U24 CA, URIC 24HRU, OXAL 24HRU, MAG 24HRU #### [facility] , Hyaline casts [#/area] in Ur ine sediment by Automated countOrdered By: Romel Davis on 07-03-2024 Hyaline casts Auto (Urine sed) [#/Area] 9-19 [LPF] High 0-8 [facility] Ketones [Presence] in Urine by Test stripOrdered By: Romel Davis on 07-03-2024 Ketones Ql (U) Trace High Negative [facility] Comment on above: Order Comment: URINE COLLECTION TIME (HRS): 24 URINE VOLUME (MILLILTERS): 2960 Performed By: #### U 24 NA, COL T V, CREA24 #### [facility] [address] [place] [address] #### PHOS 24HRU, CITRIC UR, U24 CA, URIC 24HRU, OXAL 24HRU, MAG 24HRU #### [facility] , Leukocyte esterase [Presence ] in Urine by Test stripOrdered By: Romel Davis on 07-03-2024 Leukocyte esterase Test strip Ql (U) Negative Negative [facility] Comment on above: Order Comment: URINE COLLECTION TIME (HRS): 24 URINE VOLUME (MILLILTERS): 2960 Performed By: #### U 24 NA, COL T V, CREA24 #### [facility] [address] [place] [address] [place] #### PHOS 24HRU, CITRIC UR, U24 CA, URIC 24HRU, OXAL 24HRU, MAG 24HRU #### [facility] , Leukocytes [#/area] in Urine sediment by Automated countOrdered By: Romel Davis on 07-03-2024 WBC Auto (Urine sed) [#/Area] 1-2 [HPF] 0-4 [facility] Leukocytes [#/volume] correc nat for nucleated erythrocytes in Blood by Automated counOrdered By: Romel Davis on 07-03-2024 WBC corrected for nucl RBC Auto (Bld) [#/Vol] 5.5 10*3/uL 4.1-10.5 [facility] Leukocytes [#/volume] in Blo od by Automated countOrdered By: Romel Davis on 07-03-2024 WBC (Bld) [#/Vol] 5.5 10*3/uL 4.1-10.5 [facility] Comment on above: Performed By: #### U 24 NA, COL T V, CREA24 #### [facility] [address] [place] [address] [place] #### PHOS 24HRU, CITRIC UR, U24 CA, URIC 24HRU, OXAL 24HRU, MAG 24HRU #### [facility] , Lymphocytes [#/volume] in Bl ood by Automated countOrdered By: Romel Davis on 07-03-2024 Lymphocytes (Bld) [#/Vol] 0.8 10*3/uL Low 1.00-4.8 [facility] Comment on above: Performed By: #### U 24 NA, COL T V, CREA24 #### [facility] [address] [place] [address] #### PHOS 24HRU, CITRIC UR, U24 CA, URIC 24HRU, OXAL 24HRU, MAG 24HRU #### [facility] , Lymphocytes/100 leukocytes i n Blood by Automated countOrdered By: Romel Davis on 07-03-2024 Lymphocytes/100 WBC (Bld) 14.0 % . [facility] Comment on above: Performed By: #### U 24 NA, COL T V, CREA24 #### [facility] [address] [place] [address] #### PHOS 24HRU, CITRIC UR, U24 CA, URIC 24HRU, OXAL 24HRU, MAG 24HRU #### [facility] , MCH [Entitic mass] by Automa nat countOrdered By: Romel Davis on 07-03-2024 MCH (RBC) [Entitic mass] 30.0 pg 27.5-35.2 [facility] Comment on above: Performed By: #### U 24 NA, COL T V, CREA24 #### [facility] [address] [place] [address] [place] #### PHOS 24HRU, CITRIC UR, U24 CA, URIC 24HRU, OXAL 24HRU, MAG 24HRU #### [facility] , MCHC Auto (RBC) [Mass/Vol]Or dered By: Romel Davis on 07-03-2024 MCHC (RBC) [Mass/Vol] 34.2 g/dL 32.5-35.6 [facility] MCV [Entitic volume] by Auto mated countOrdered By: Romel Ryan on 07-03-2024 MCV (RBC) [Entitic vol] 87.5 fL 83.5-101 [facility] Comment on above: Performed By: #### U 24 NA, COL T V, CREA24 #### [facility] [address] [place] [address] [place] #### PHOS 24HRU, CITRIC UR, U24 CA, URIC 24HRU, OXAL 24HRU, MAG 24HRU #### [facility] , Mucus [Presence] in Urine by AutomatedOrdered By: Rmoel Davis on 07-03-2024 Mucus Auto Ql (U) 1+ [LPF] Abnormal [facility] Neutrophils [#/volume] in Bl ood by Automated countOrdered By: Romel Davis on 07-03-2024 Neutrophils (Bld) [#/Vol] 4.2 10*3/uL 1.8-7.7 [facility] Comment on above: Performed By: #### U 24 NA, COL T V, CREA24 #### [facility] [address] [place] [address] [place] #### PHOS 24HRU, CITRIC UR, U24 CA, URIC 24HRU, OXAL 24HRU, MAG 24HRU #### [facility] , Nitrite Test strip Ql (U)Ord ered By: Romel Davis on 07-03-2024 Nitrite Ql (U) Negative Negative [facility] No Panel InformationOrdered By: Romel Davis on 07-03-2024 Estimated GFR (CKD-EPI) > 60.0 mL/Min [facility] Creatinine Clearance (Chem N/A [facility] Total Complement (CH50) 56 U/mL >41 [facility] Comment on above: Age Male Female 3 [...] determine out of range values.Performed at: - [facility] [id number] Director: Richy Ardon PhD, Phone: [phone] Nucleated erythrocytes [Pres ence] in Blood by Automated countOrdered By: Romel Davis on 07-03-2024 Nucleated RBC Auto Ql (Bld) 0.1 /100{WBC} 0-0.5 [facility] Platelet mean volume [Entiti c volume] in Blood by Automated countOrdered By: Romel Davis on 07-03-2024 Platelet mean volume (Bld) [Entitic vol] 8.2 fL 6.6-10.1 [facility] Comment on above: Performed By: #### U 24 NA, COL T V, CREA24 #### [facility] [address] [place] [address] #### PHOS 24HRU, CITRIC UR, U24 CA, URIC 24HRU, OXAL 24HRU, MAG 24HRU #### [facility] , Platelets [#/volume] in Bloo d by Automated countOrdered By: Romel Davis on 07-03-2024 Platelets (Bld) [#/Vol] 160 10*3/uL 150-450 [facility] Comment on above: Performed By: #### U 24 NA, COL T V, CREA24 #### [facility] [address] [place] [address] #### PHOS 24HRU, CITRIC UR, U24 CA, URIC 24HRU, OXAL 24HRU, MAG 24HRU #### [facility] , Potassium [Moles/volume] in Serum or PlasmaOrdered By: Romel Davis on 07-03-2024 Potassium [Moles/Vol] 4.0 mmol/L 3.5-5.1 [facility] Comment on above: Performed By: #### U 24 NA, COL T V, CREA24 #### [facility] [address] [place] [address] [place] #### PHOS 24HRU, CITRIC UR, U24 CA, URIC 24HRU, OXAL 24HRU, MAG 24HRU #### [facility] , Protein Test strip (U) [Mass /Vol]Ordered By: Romel Davis on 07-03-2024 Protein (U) [Mass/Vol] Trace mg/dL High Negative [facility] Protein [Mass/volume] in Ser um or PlasmaOrdered By: Romel Davis on 07-03-2024 Protein [Mass/Vol] 6.3 g/dL Low 6.4-8.9 [facility] Comment on above: Performed By: #### U 24 NA, COL T V, CREA24 #### [facility] [address] [place] [address] #### PHOS 24HRU, CITRIC UR, U24 CA, URIC 24HRU, OXAL 24HRU, MAG 24HRU #### [facility] , Serum globulin measurement b y calculation (mass/volume)Ordered By: Romel Davis on 07-03-2024 Globulin (S) [Mass/Vol] 2.1 g/dL [facility] Comment on above: Performed By: #### U 24 NA, COL T V, CREA24 #### [facility] [address] [place] [address] #### PHOS 24HRU, CITRIC UR, U24 CA, URIC 24HRU, OXAL 24HRU, MAG 24HRU #### [facility] , Serum or plasma albumin/glob ulin mass ratioOrdered By: Romel Davis on 07-03-2024 Albumin/Globulin [Mass ratio] 2.0 {ratio} [facility] Comment on above: Performed By: #### U 24 NA, COL T V, CREA24 #### [facility] [address] [place] [address] [place] #### PHOS 24HRU, CITRIC UR, U24 CA, URIC 24HRU, OXAL 24HRU, MAG 24HRU #### [facility] , Serum or plasma anion gap de terminationOrdered By: Romel aDvis on 07-03-2024 Anion gap [Moles/Vol] 13.4 mmol/L 6.0-15.[address] [facility] Comment on above: Performed By: #### U 24 NA, COL T V, CREA24 #### [facility] [address] #### PHOS 24HRU, CITRIC UR, U24 CA, URIC 24HRU, OXAL 24HRU, MAG 24HRU #### [facility] , Serum or plasma complement C 3 measurement (mass/volume)Ordered By: Romel Davis on 07-03-2024 Complement C3 [Mass/Vol] 127 mg/dL 82-167 [facility] Comment on above: Performed at: [facility] [id number] Director: Richy Ardon PhD, Phone: [phone] Serum or plasma complement C 4 measurement (mass/volume)Ordered By: Romel Davis on 07-03-2024 Complement C4 [Mass/Vol] 15 mg/dL 12-38 [facility] Comment on above: Performed at: [employer] [address] [id number] Director: Richy Ardon PhD, Phone: [phone] Sodium [Moles/volume] in Ser um or PlasmaOrdered By: Romel Davis on 07-03-2024 Sodium [Moles/Vol] 137 mmol/L 136-145 [facility] Comment on above: Performed By: #### U 24 NA, COL T V, CREA24 #### [address] #### PHOS 24HRU, CITRIC UR, U24 CA, URIC 24HRU, OXAL 24HRU, MAG 24HRU #### [facility] , Specific gravity Test strip (U) [Rel density]Ordered By: Romel Davis on 07-03-2024 Specific gravity (U) [Rel density] 1.027 1.001-1.03 0 [facility] Urea nitrogen [Mass/volume] in Serum or PlasmaOrdered By: Romel Davis on 07-03-2024 Urea nitrogen [Mass/Vol] 17 mg/dL 06-14 [facility] Comment on above: Performed By: #### U 24 NA, COL T V, CREA24 #### [facility] [address] [place] [address] #### PHOS 24HRU, CITRIC UR, U24 CA, URIC 24HRU, OXAL 24HRU, MAG 24HRU #### [facility] , Urine appearanceOrdered By: Romel Davis on 07-03-2024 Appearance (U) Clear Clear [facility] Comment on above: Order Comment: URINE COLLECTION TIME (HRS): 24 URINE VOLUME (MILLILTERS): 2960 Performed By: #### U 24 NA, COL T V, CREA24 #### [facility] [address] [place] [address] #### PHOS 24HRU, CITRIC UR, U24 CA, URIC 24HRU, OXAL 24HRU, MAG 24HRU #### [facility] , Urobilinogen Test strip (U) [Mass/Vol]Ordered By: Romel Davis on 07-03-2024 Urobilinogen (U) [Mass/Vol] 2 mg/dL High Normal [facility] pH of Urine by Test stripOrd ered By: Romel Davis on 07-03-2024 pH (U) 6.5 [pH] 5.0-9.0 [facility] Comment on above: Order Comment: URINE COLLECTION TIME (HRS): 24 URINE VOLUME (MILLILTERS): 2960 Performed By: #### U 24 NA, COL T V, CREA24 #### [facility] [address] [place] [address] [place] #### PHOS 24HRU, CITRIC UR, U24 CA, URIC 24HRU, OXAL 24HRU, MAG 24HRU #### [facility] , Vivek 05-30-2024 L Specimen: [id number] Re ceived: 06/04/24 Status: SOUT Req Num: [id number] Spec Type: Cytology Subm Dr: Carlos Eden DO Tissues: A FNA SLIDES NOPATH (RT THYROID) Procedures: Cyto Int and Re, PAPSTN/11 Age/ Patient Sex Location Account Attending Physician NichoValentin Alvino 69/M LINDEN [id number] Carlos Eden DO SPEC NUM: [id number] RECD: 06/04/24 STATUS: SOUKiera REQ NUM: [id number] MAINOR: 05/30/24- SUBM DR: Carlos Eden DO ENTERED: 06/04/[address]: SPEC TYPE: Cytology DEPT: CNG ENTERED BY: [id number] RECV BY: [id number] ORDERED: Cyto Int and Re, PAPSTN/11 ORDERED: Cyto Int and Re, PAPSTN/11 Pathological Diagnosis Thyroid nodule, right lobe, FNA: - Benign follicular nodule - [place] diagnostic category II Clinical Information Right Thyroid Nodule Gross Description Received fixed in Cytolyt is <1 ml pale pink cloudy fluid for cytology said to have been obtained as Right Thyroid Nodule . ThinPrep preparations are prepared for microscopic examination. Also received are 10 spray fixed smeared slides to be stained pap and a Veracyte vial stored at -20 for microscopic examination.(CC/me) CPT Codes 86669 Specimen: [id number] Received: 06/04/24 Status: SOUT Req Num: [id number] Spec Type: Cytology Subm Dr: Carlos W Murcek,DO Tissues: A FNA SLIDES NOPATH (RT THYROID) Procedures: Cyto Int and Re, PAPSTN/11 Patient: Valentin Torre [id number] (Continued) Signed (signature on file) Shaggy Vega MD 06/05/24 1500 Normal [facility] Urology Office/Clinic Noteon 05-17-2024 Urology Office/Clinic Note Urology Office/Clinic Note Chief Complaint f/u to starting new med HPI Staff PRW pt 8wks to starting Tamsulosin 0.4mg qd therapy. DX: BPH, Incontinence w/o sensory awareness & Kidney Stones Last PSA 04/08/23 1.77 Stream has improved w/Tamsulosin therapy. Believes sx have improved 100% PVR 47ml History of Present Illness staff HPI reviewed and agree. Tests Reviewed: Reviewed UA. Review of Systems PHQ Score Initial Depression Screen Score: 0 SCORE no fever, chills, malaise, myalgia. no rash/lesions. no chest pain, palpitations, or SOB. no abdominal pain, nausea, vomiting. no unilateral calf swelling, redness, pain Physical Exam Vitals & Measurements HR: 80(Peripheral) RR: 16 BP: 132/78 HT: 68 in HT: 173 cm WT: 98 kg WT: 215.6 lb BMI: 32.74 General: nontoxic, NAD Mouth: moist mucosa Lungs: normal respiratory effort Cardio: regular rate, good distal perfusion Abdomen: nondistended, no suprapubic distention or tenderness, no CVA tenderness Neurologic: Grossly normal Skin: No rashes or suspicious lesions Assessment/Plan PRW pt. 1. BPH (benign prostatic hyperplasia) (N40.0: Benign prostatic hyperplasia without lower urinary tract symptoms) PSA (monitored by PCP): 04/08/23 - 1.77 UA today negative for blood and infection. Started Tamsulosin 0.4 mg qd at prior OV. IPSS 6 (14), QoL 1. PVR 47 ml, emptying well. Sx have greatly improved since starting alpha sandy. No SEs, pt has taken before for kidney stones and tolerated it well. -Cont Tamsulosin wo changes. -Cont PSA monitoring with PCP. 2. Kidney stones (N20.0: Calculus of kidney) Electrolyte panel 10/20/23 - wnl. [place] [facility] [place]neys are partially obscured, R>L. Group of 3 tiny stones at the LLQ of the abdomen which are a couple mm in size and potentially renal stones. A stone overlying the RUP 3 mm which probably correlates w/the renal stone seen previously on that side. [1] S/p left ESWL 02/16/2024, patient is not sure if he has passed any fragments since then. [1] Taking potassium bicarb 25 mEq twice daily. Has 6 mos f/u with KUB with PRW 09/03/23 or sooner if needed. Pt understands and agrees with plan. Follow-up With When Contact Information BILL FERRERA, LEAH Feliz, URL [address] [facility] [place] [address] Additional Instructions: 6 mos f/u with KUB with PRW 09/03/23 Patient Education Benign Prostatic Hyperplasia Documentation recorded by the corrie Stanley accurately reflects the services(s) I performed and decisions made by me. Authenticated by Leah Roa PA-C on 05/17/2024 12:30:00. Teena López, personally scribed for MATT Holbrook on 05/15/2024 15:06:21. . Problem List/Past Medical History Ongoing Arthritis BPH (benign prostatic hyperplasia) DDD (degenerative disc disease), lumbar Eye cancer Gross hematuria History of kidney stones Hyperlipidemia Hypertension Iritis Kidney stones Lupus Osteoarthritis Osteoporosis Prostate cancer screening Rheumatoid arthritis Ureteral stone with hydronephrosis Historical No qualifying data Procedure/Surgical History Arm, Arthroplasty of knee, Arthroscopy of knee, Carpal tunnel release, Cleft palate, Colonoscopy, EGD - Esophagogastroduodenoscopy, Procedure on shoulder, Procedure on spine, Skin cancer, Tympanoplasty. Medications acetaminophen 500 mg Tab, Oral, q6hr Seema D OTC 24HR, Oral, Daily aspirin 81 mg oral capsule, Oral, q24hr colchicine 0.6 mg Tab, Oral, Daily Effervescent Potassium 25 mEq oral tablet, 25 mEq= 1 tab(s), Oral, BID, 3 refills folic acid 1 mg Tab, Oral, Daily [...] Tab, Oral, Once a day (at bedtime) tamsulosin 0.4 mg Cap, 0.4 mg= 1 cap(s), Oral, Daily, 11 refills traMADOL 50 mg Tab, Oral, q6hr Allergies cephalexin (Unknown) oxyCODONE (Hallucinations) sulfa drugs (Unknown) Social History Alcohol - Denies Alcohol Use, 05/09/2023 Substance Abuse - Denies Substance Abuse, 05/09/2023 Tobacco Former smoker, quit more than 30 days ago Tobacco Use:. Never Smokeless Tobacco Use:. Cigarettes, Household tobacco concerns: No., 05/15/2024 Family History Kidney stone: Brother. Immunizations Vaccine Date Status influenza virus vaccine, inactivated 08/23/2023 Recorded diphtheria/pertussis, acel/tetanus adult 05/20/2023 Recorded influenza virus vaccine, inactivated 12/05/2022 Recorded SARS-CoV-2 (COVID-19) [id number] 10/08/2022 Recorded influenza virus vaccine, inac (more content not included)... Normal [facility] Comment on above: Result Comment: Elec tronically Signed By: LEAH ROA PA-C\.br\Date and Time Signed: 05/17/24 12:31 EDT\.br\Electronically Co-Signed By: Teena Stanley\.br\Date and Time Co-Signed: 05/15/24 15:06 EDT [place] 05-16-2024 Screens [id number]#1.00TIFF [facility] Screens [id number]#1.00TIFF [facility] Ambulatory Visit Summaryon 0 05-15-2024 Ambulatory Visit Summary VALENTIN TORRE :1955 Visit Date:05/15/2024 Ambulatory Visit Instructions Your Diagnosis BPH (benign prostatic hyperplasia) Kidney stones Your Care Team Attending Physician - LEAH RAO PA-C Primary Care Physician - SASCHA SUTTON DO This Is Your Medications List ketorolac (ketorolac 10 mg Tab) potassium bicarbonate (Effervescent Potassium 25 mEq oral tablet) tamsulosin (tamsulosin 0.4 mg Cap) Contact prescribing physician if questions or concerns acetaminophen (acetaminophen 500 mg Tab) aspirin (aspirin 81 mg oral capsule) colchicine (colchicine 0.6 mg Tab) fexofenadine-pseudoephedrin e (Seema D OTC 24HR) folic acid (folic acid 1 mg Tab) hydrochlorothiazide-lisinop ril (hydrochlorothiazide-lisino pril 12.5 mg-20 mg Tab) hydroxychloroquine (hydroxychloroquine 200 mg Tab) leflunomide (leflunomide 10 mg oral tablet) methotrexate (methotrexate 1 g injection) methylPREDNISolone (Medrol 4 mg Tab) montelukast (montelukast 10 mg Tab) nabumetone (nabumetone 750 mg Tab) ocular lubricant (Refresh Dry Eye Therapy) omeprazole (omeprazole 40 mg Cap-DR) prednisoLONE simvastatin (simvastatin 20 mg Tab) tramadol (traMADOL 50 mg Tab) Procedures Performed Arm, Arthroplasty of knee, Arthroscopy of knee, Carpal tunnel release, Cleft palate, Colonoscopy, EGD - Esophagogastroduodenoscopy, Procedure on shoulder, Procedure on spine, Skin cancer, Tympanoplasty. Discharge Vitals Heart Rate (Peripheral) 80 Respiratory Rate 16 Blood Pressure 132/78 Height 173 cm Height 68 in Weight 98 kg Weight 215.6 lb BMI 32.74 What to do next Scheduled Follow-Up Appointments Tuesday 9:45 AM EDT With: Zac MUNIZ MD Where: [facility] Patient Educationon 05-15-20 Patient Education Urology Benign Prostatic Hyperplasia Benign prostatic hyperplasia (BPH) is an enlarged prostate gland that is caused by the normal aging process. The prostate may get bigger as a man gets older. The condition is not caused by cancer. The prostate is a walnut-sized gland that is involved in the production of semen. It is located in front of the rectum and below the bladder. The bladder stores urine. The urethra carries stored urine out of the body. An enlarged prostate can press on the urethra. This can make it harder to pass urine. The buildup of urine in the bladder can cause infection. Back pressure and infection may progress to bladder damage and kidney (renal) failure. What are the causes? This condition is part of the normal aging process. However, not all men develop problems from this condition. If the prostate enlarges away from the urethra, urine flow will not be blocked. If it enlarges toward the urethra and compresses it, there will be problems passing urine. What increases the risk? This condition is more likely to develop in men older than 50 years. What are the signs or symptoms? Symptoms of this condition include: ? Getting up often during the night to urinate. ? Needing to urinate frequently during the day. ? Difficulty starting urine flow. ? Decrease in size and strength of your urine stream. ? Leaking (dribbling) after urinating. ? Inability to pass urine. This needs immediate treatment. ? Inability to completely empty your bladder. ? Pain when you pass urine. This is more common if there is also an infection. ? Urinary tract infection (UTI). How is this diagnosed? This condition is diagnosed based on your medical history, a physical exam, and your symptoms. Tests will also be done, such as: ? A post-void bladder scan. This measures any amount of urine that may remain in your bladder after you finish urinating. ? A digital rectal exam. In a rectal exam, your health care provider checks your prostate by putting a lubricated, gloved finger into your rectum to feel the back of your prostate gland. This exam detects the size of your gland and any abnormal lumps or growths. ? An exam of your urine (urinalysis). ? A prostate specific antigen (PSA) screening. This is a blood test used to screen for prostate cancer. ? An ultrasound. This test uses sound waves to electronically produce a picture of your prostate gland. Your health care provider may refer you to a specialist in kidney and prostate diseases (urologist). How is this treated? Once symptoms begin, your health care provider will monitor your condition (active surveillance or watchful waiting). Treatment for this condition will depend on the severity of your condition. Treatment may include: ? Observation and yearly exams. This may be the only treatment needed if your condition and symptoms are mild. ? Medicines to relieve your symptoms, including: ? Medicines to shrink the prostate. ? Medicines to relax the muscle of the prostate. ? Surgery in severe cases. Surgery may include: ? Prostatectomy. In this procedure, the prostate tissue is removed completely through an open incision or with a laparoscope or robotics. ? Transurethral resection of the prostate (TURP). In this procedure, a tool is inserted through the opening at the tip of the penis (urethra). It is used to cut away tissue of the inner core of the prostate. The pieces are removed through the same opening of the penis. This removes the blockage. ? Transurethral incision (TUIP). In this procedure, small cuts are made in the prostate. This lessens the prostate's pressure on the urethra. ? Transurethral microwave thermotherapy (TUMT). This procedure uses microwaves to create heat. The heat destroys and removes a small amount of prostate tissue. ? Transurethral needle ablation (TUNA). This procedure uses radio frequencies to destroy and remove a small amount of prostate tissue. ? Interstitial laser coagulation (ILC). This procedure uses a laser to destroy and remove a small amount of prostate tissue. ? Transurethral electrovaporization (TUVP). This procedure uses electrodes to destroy and remove a small amount of prostate tissue. ? Prostatic urethral lift. This procedure inserts an implant to push the lobes of the prostate away from the urethra. Follow these instructions at home: ? Take xepm-lij-fvwllgc and prescription medicines only as told by your health care provider. ? Monitor your symptoms for any changes. Contact your health care provider with any changes. ? Avoid drinking large amounts of liquid before going to bed or out in public. ? Avoid or reduce how much caffeine or alcohol you drink. ? Give yourself time when you urinate. ? Keep all follow-up visits. This is important. Contact a health care provider if: ? You have unexplained back pain. ? Your symptoms do not get better with treatment. ? You develop side effects from the medicine (more content not included)... Normal [facility] 03-21-2024 Screens [id number]#1.00TIFF [facility] Patient Educationon 03-20-20 24 Patient Education Urinary Incontinence Urinary incontinence refers to a condition in which a person is unable to control where and when to pass urine. A person with this condition will urinate involuntarily. This means that the person urinates when he or she does not mean to. What are the causes? This condition may be caused by: ? Medicines. ? Infections. ? Constipation. ? Overactive bladder muscles. ? Weak bladder muscles. ? Weak pelvic floor muscles. These muscles provide support for the bladder, intestine, and, in women, the uterus. ? Enlarged prostate in men. The prostate is a gland near the bladder. When it gets too big, it can pinch the urethra. With the urethra blocked, the bladder can weaken and lose the ability to empty properly. ? Surgery. ? Emotional factors, such as anxiety, stress, or post-traumatic stress disorder (PTSD). ? Spinal cord injury, nerve injury, or other neurological conditions. ? Pelvic organ prolapse. This happens in women when organs move out of place and into the vagina. This movement can prevent the bladder and urethra from working properly. What increases the risk? The following factors may make you more likely to develop this condition: ? Age. The older you are, the higher the risk. ? Obesity. ? Being physically inactive. ? and childbirth. ? Menopause. ? Diseases that affect the nerves or spinal cord. ? Long-term, or chronic, coughing. This can increase pressure on the bladder and pelvic floor muscles. What are the signs or symptoms? Symptoms may vary depending on the type of urinary incontinence you have. They include: ? A sudden urge to urinate, and passing urine involuntarily before you can get to a bathroom (urge incontinence). ? Suddenly passing urine when doing activities that force urine to pass, such as coughing, laughing, exercising, or sneezing (stress incontinence). ? Needing to urinate often but urinating only a small amount, or constantly dribbling urine (overflow incontinence). ? Urinating because you cannot get to the bathroom in time due to a physical disability, such as arthritis or injury, or due to a communication or thinking problem, such as Alzheimer's disease (functional incontinence). How is this diagnosed? This condition may be diagnosed based on: ? Your medical history. ? A physical exam. ? Tests, such as: ? Urine tests. ? X-rays of your kidney and bladder. ? Ultrasound. ? CT scan. ? Cystoscopy. In this procedure, a health care provider inserts a tube with a light and camera (cystoscope) through the urethra and into the bladder to check for problems. ? Urodynamic testing. These tests assess how well the bladder, urethra, and sphincter can store and release urine. There are different types of urodynamic tests, and they vary depending on what the test is measuring. To help diagnose your condition, your health care provider may recommend that you keep a log of when you urinate and how much you urinate. How is this treated? Treatment for this condition depends on the type of incontinence that you have and its cause. Treatment may include: ? Lifestyle changes, such as: ? Quitting smoking. ? Maintaining a healthy weight. ? Staying active. Try to get 150 minutes of moderate-intensity exercise every week. Ask your health care provider which activities are safe for you. ? Eating a healthy diet. ? Avoid high-fat foods, like fried foods. ? Avoid refined carbohydrates like white bread and white rice. ? Limit how much alcohol and caffeine you drink. ? Increase your fiber intake. Healthy sources of fiber include beans, whole grains, and fresh fruits and vegetables. ? Behavioral changes, such as: ? Pelvic floor muscle exercises. ? Bladder training, such as lengthening the amount of time between bathroom breaks, or using the bathroom at regular intervals. ? Using techniques to suppress bladder urges. This can include distraction techniques or controlled breathing exercises. ? Medicines, such as: ? Medicines to relax the bladder muscles and prevent bladder spasms. ? Medicines to help slow or prevent the growth of a man's prostate. ? Botox injections. These can help relax the bladder muscles. ? Treatments, such as: ? Using pulses of electricity to help change bladder reflexes (electrical nerve stimulation). ? For women, using a medical office manager to prevent urine leaks. This is a small, tampon-like, disposable device that is inserted into the urethra. ? Injecting collagen or carbon beads (bulking agents) into the urinary sphincter. These can help thicken tissue and close the bladder opening. ? Surgery. Follow these instructions at home: Lifestyle ? Limit alcohol and caffeine. These can fill your bladder quickly and irritate it. ? Keep yourself clean to help prevent odors and skin damage. Ask your health care provider about special skin creams and cleansers that can protect the skin from urine. ? Consider (more content not included)... Normal [facility] Urology Office/Clinic Noteon 03-20-2024 Urology Office/Clinic Note Chief Complaint Incontinence HPI Staff 68 year old male here due to incontinence without sensory awareness. Previous DX: ureteral stone with hydronephrosis and kidney stones. Pt. states when he was on Flomax for his kidney stones his urinary symptoms were better. Dysuria: no Incomplete bladder emptying: yes, PVR 44mL Hematuria: no Frequency: 2-3 hours or longer Urgency:y yes Nocturia: 4x's Stream: occasionally Post void dripping: yes Wearing pads/ Depends: yes, 1/day Urge incontinence: no Stress incontinence: no Incontinence without Sensory Awareness: yes, Pt. states on going since last week - notes one episode Abdominal pain: _ Flank pain: History of Present Illness I have reviewed and verified the staff HPI to be accurate for this encounter. Portions of this record may have been created with voice recognition artificial intelligence software, specifically [employer], [employer] and or [employer]. Substitutions may have occurred due to the inherent limitations of voice recognition and artificial intelligence software. Review of Systems PHQ Score Initial Depression Screen Score: 0 SCORE Physical Exam Vitals & Measurements T: 36.4 ?C(Temporal Artery) HR: 73(Peripheral) RR: 19 BP: 124/74 HT: 68 in HT: 173 cm WT: 97.5 kg WT: 214.5 lb BMI: 32.58 General: Well developed, well nourished, in no acute distress. Genitourinary: Flank Pain: none. Bladder: nonpalpable. Prostate: normal prostate, no hard nodule observed. No significant pain during exam. Assessment/Plan 1. BPH (benign prostatic hyperplasia) (N40.0: Benign prostatic hyperplasia without lower urinary tract symptoms) IPSS 14, moderate symptoms of BPH. Patient has mixed feelings about his urinary symptoms at this time. Patient has been on tamsulosin in the past during stone episodes. He notes that his urinary symptoms were all around better while he was taking the medication. We discussed male anatomy including prostate and how this is likely contributing to his urinary symptoms. We discussed use of prostate relaxing medications in order to optimize his urination. We discussed possible side effects. Start tamsulosin 0.4 mg daily. Rx sent to pharmacy. Patient to stop medication and notify office if having any intolerable side effects. -Follow-up 8 weeks with PVR. Ordered: tamsulosin, 0.4 mg = 1 cap(s), Oral, Daily, # 30 cap(s), Refills(s) 11, Pharmacy: [facility]/pharmacy #[id number], 173, cm, 03/20/24 12:27:00 EDT, Height/Length Dosing, 97.5, kg, 03/20/24 12:27:00 EDT, Weight Dosing 2. 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 He often thinks that he is done voiding and ends up dribbling some in his pants. He wears 1 pad daily that he typically does not saturate. He states that he had 1 episode of full incontinence without awareness last week. This is never happened to him before. He had no urge to urinate at the time. He denies symptoms of urinary infection. He denies flank pain or possibility of passing stone. RED is wnl today without increased discomfort on exam. We discussed timed voids, voiding maneuvers, avoid bladder irritants. Ordered: 51112 Measure Post Void residual urine and/or bladder capacity by US- non-imaging Body Mass Index (BMI) documented 3008F Current tobacco non-user 1036F Depression Screening Negative 3352F Medication list documented in medical record 1159F Most recent diastolic blood pressure <80 mm Hg 3078F Patient screen for fall risk: no falls in last year or 1 fall with no injury in last year 1101F Review of all meds by a prescribing practitioner or clinical pharmacist documented in EHR 1160F Systolic BP <130 mm Hg (Most Recent) 3074F Urnls Dip Stick Auto w/o Microscopy POC 20224 3. Kidney stones (N20.0: Calculus of kidney) Electrolyte panel 10/20/23 - wnl. [place] [facility] [place] [facility] [place], R>L. Group of 3 tiny stones at the LLQ of the abdomen which are a couple mm in size and potentially renal stones. A stone overlying the RUP 3 mm which probably correlates w/the renal stone seen previously on that side. [1] s/p left ESWL 02/16/2024, patient is not sure if he has passed any fragments since then. Patient is currently taking potassium bicarb 25 mEq twice daily. He is tolerating well without side effects. Continue current dose, call for refills. Discussed generalized stone prevention - pt encouraged to increase fluid intake so that he/she producing 2.5L of urine daily. Add 1/4 cup of lemon juice to water throughout the day or can also drink sugar free lemonade or clear soda. Avoid dark sandrita. Restrict sodium intake. Restrict animal protein. 4. Prostate cancer screening (Z12.5: Encounter for screening for malignant neoplasm of prostate) March 2023 - .[address] Sutton Follow-up With When Contact Information FRANCIS Jimenez APRN, Daria Lechuga, NEYMAR, UR (more content not included)... Normal [facility] Comment on above: Result Comment: Elec tronically Signed By: FRANCIS Jimenez APRN, [place] X\.br\Date and Time Signed: 03/20/24 13:12 EDT Alanine aminotransferase [En zymatic activity/volume] in Serum or PlasmaOrdered By: Romel Davis on 03-13-2024 ALT [Catalytic activity/Vol] 22 U/L Normal 7-52 [facility] Comment on above: Performed By: #### U 24 NA, COL T V, CREA24 #### [facility] [address] [place] [address] #### PHOS 24HRU, CITRIC UR, U24 CA, URIC 24HRU, OXAL 24HRU, MAG 24HRU #### [facility] , Albumin [Mass/volume] in Ser um or Plasma by Bromocresol green (BCG) dye binding methoOrdered By: Romel Davis on 03-13-2024 Albumin BCG dye [Mass/Vol] 3.7 g/dL 3.5-5.7 [facility] Alkaline phosphatase [Enzyma tic activity/volume] in Serum or PlasmaOrdered By: Romel Davis on 03-13-2024 ALP [Catalytic activity/Vol] 79 U/L Normal 34-104 [facility] Comment on above: Result Comment: PERF ORMED BY: [place] [address] PATHOLOGIST ALARM MECHANISM ADJUSTER OLMAN ALBARRAN M.D. Performed By: #### U 24 NA, COL T V, CREA24 #### [facility] [address] [place] [address] #### PHOS 24HRU, CITRIC UR, U24 CA, URIC 24HRU, OXAL 24HRU, MAG 24HRU #### [facility] , Aspartate aminotransferase [ Enzymatic activity/volume] in Serum or PlasmaOrdered By: Romel Davis on 03-13-2024 AST [Catalytic activity/Vol] 17 U/L Normal 13-39 [facility] Comment on above: Performed By: #### U 24 NA, COL T V, CREA24 #### [facility] [address] [place] [address] [place] #### PHOS 24HRU, CITRIC UR, U24 CA, URIC 24HRU, OXAL 24HRU, MAG 24HRU #### [facility] , Automated basophil %Ordered By: Romel Davis on 03-13-2024 Basophils/100 WBC (Bld) 0.5 % Normal . [facility] Comment on above: Performed By: #### U 24 NA, COL T V, CREA24 #### [facility] [address] [place] [address] [place] #### PHOS 24HRU, CITRIC UR, U24 CA, URIC 24HRU, OXAL 24HRU, MAG 24HRU #### [facility] , Automated basophil countOrde red By: Romel Davis on 03-13-2024 Basophils (Bld) [#/Vol] 0.0 10*3/uL Normal 0.0-0.2 [facility] Comment on above: Performed By: #### U 24 NA, COL T V, CREA24 #### [facility] [address] [place] [address] #### PHOS 24HRU, CITRIC UR, U24 CA, URIC 24HRU, OXAL 24HRU, MAG 24HRU #### [facility] , Automated blood monocyte cou ntOrdered By: Romel Davis on 03-13-2024 Monocytes (Bld) [#/Vol] 0.7 10*3/uL Normal 0.0-0.8 [facility] Comment on above: Performed By: #### U 24 NA, COL T V, CREA24 #### [place] [address] [place] #### PHOS 24HRU, CITRIC UR, U24 CA, URIC 24HRU, OXAL 24HRU, MAG 24HRU #### [facility] , Automated eosinophil %Ordere d By: Romel Davis on 03-13-2024 Eosinophils/100 WBC (Bld) 1.3 % Normal . [facility] Comment on above: Performed By: #### U 24 NA, COL T V, CREA24 #### [facility] [address] [place] [address] [place] #### PHOS 24HRU, CITRIC UR, U24 CA, URIC 24HRU, OXAL 24HRU, MAG 24HRU #### [facility] , Automated eosinophil countOr dered By: Romel Davis on 03-13-2024 Eosinophils (Bld) [#/Vol] 0.1 10*3/uL Normal 0.0-0.45 [facility] Comment on above: Performed By: #### U 24 NA, COL T V, CREA24 #### [facility] [address] [place] [address] #### PHOS 24HRU, CITRIC UR, U24 CA, URIC 24HRU, OXAL 24HRU, MAG 24HRU #### [facility] , Automated erythrocytes count in urine sediment (number/area)Ordered By: Romel Mendezrow on 03-13-2024 RBC Auto (Urine sed) [#/Area] 1-2 [HPF] 0-4 [facility] Automated leukocytes count i n urine sediment (number/area)Ordered By: Romel Mendezrow on 03-13-2024 WBC Auto (Urine sed) [#/Area] 0-1 [HPF] 0-4 [facility] Automated monocyte %Ordered By: Romel Mendezrow on 03-13-2024 Monocytes/100 WBC (Bld) 10.7 % Normal . [facility] Comment on above: Performed By: #### U 24 NA, COL T V, CREA24 #### [address] #### PHOS 24HRU, CITRIC UR, U24 CA, URIC 24HRU, OXAL 24HRU, MAG 24HRU #### [facility] , Automated neutrophil %Ordere d By: Romel Mendezrow on 03-13-2024 Neutrophils/100 WBC (Bld) 75.4 % Normal . [facility] Comment on above: Performed By: #### U 24 NA, COL T V, CREA24 #### [facility] [address] [place] [address] [place] #### PHOS 24HRU, CITRIC UR, U24 CA, URIC 24HRU, OXAL 24HRU, MAG 24HRU #### [facility] , Automated urine color determ inationOrdered By: Romel Mendezrow on 03-13-2024 Color (U) Dark yellow Critically abnormal Yellow [facility] Comment on above: Order Comment: URINE COLLECTION TIME (HRS): 24 URINE VOLUME (MILLILTERS): 2960 Performed By: #### U 24 NA, COL T V, CREA24 #### [facility] [address] [place] [address] #### PHOS 24HRU, CITRIC UR, U24 CA, URIC 24HRU, OXAL 24HRU, MAG 24HRU #### [facility] , Bilirubin Test strip Ql (U)O rdered By: Romel Davis on 03-13-2024 Bilirubin Ql (U) Negative Negative [facility] Bilirubin.total [Mass/volume ] in Serum or PlasmaOrdered By: Romel Davis on 03-13-2024 Bilirubin [Mass/Vol] 0.6 mg/dL Normal 0.3-1.0 [facility] Comment on above: Performed By: #### U 24 NA, COL T V, CREA24 #### [facility] [address] [place] [address] #### PHOS 24HRU, CITRIC UR, U24 CA, URIC 24HRU, OXAL 24HRU, MAG 24HRU #### [facility] , Calcium [Mass/volume] in Ser um or PlasmaOrdered By: Romel Davis on 03-13-2024 Calcium [Mass/Vol] 8.8 mg/dL Normal 8.6-10.3 [facility] Comment on above: Performed By: #### U 24 NA, COL T V, CREA24 #### [facility] [address] [place] [address] #### PHOS 24HRU, CITRIC UR, U24 CA, URIC 24HRU, OXAL 24HRU, MAG 24HRU #### [facility] , Carbon dioxide, total [Moles /volume] in Serum or PlasmaOrdered By: Romel Davis on 03-13-2024 CO2 [Moles/Vol] 25.0 mmol/L Normal 21.0-31.0 [facility] Comment on above: Performed By: #### U 24 NA, COL T V, CREA24 #### [facility] [address] [place] [address] #### PHOS 24HRU, CITRIC UR, U24 CA, URIC 24HRU, OXAL 24HRU, MAG 24HRU #### [facility] , Chloride [Moles/volume] in S ace or PlasmaOrdered By: Romel Davis on 03-13-2024 Chloride [Moles/Vol] 105 mmol/L Normal 98-107 [facility] Comment on above: Performed By: #### U 24 NA, COL T V, CREA24 #### [facility] [address] [place] [address] #### PHOS 24HRU, CITRIC UR, U24 CA, URIC 24HRU, OXAL 24HRU, MAG 24HRU #### [facility] , Complement C3on 03-13-2024 Complement C3 153 mg/dL Normal 82-167 [facility] Comment on above: Result Comment: Perf ormed at: - [facility] [place] [id number] [employer]: Richy Ardon PhD, Phone: [phone] Performed By: #### U 24 NA, COL T V, CREA24 #### [facility] [address] [place] [address] #### PHOS 24HRU, CITRIC UR, U24 CA, URIC 24HRU, OXAL 24HRU, MAG 24HRU #### [facility] , Complement C4on 03-13-2024 Complement C4 24 mg/dL Normal 12-38 [facility] Comment on above: Result Comment: PERF ORMED BY: [place] [address] PATHOLOGIST ALARM MECHANISM ADJUSTER OLMAN ALBARRAN M.D. Performed By: #### U 24 NA, COL T V, CREA24 #### [facility] [address] [place] [address] #### PHOS 24HRU, CITRIC UR, U24 CA, URIC 24HRU, OXAL 24HRU, MAG 24HRU #### [facility] , Complement Total (CH50)on Complement Total (CH50) >60 Normal >41 [facility] Comment on above: Result Comment: Age Male [...] of range values. Performed at: - [facility] [address] [id number] [employer]: Richy Ardon PhD, Phone: [phone] PERFORMED BY: [place] [address] PATHOLOGIST ALARM MECHANISM ADJUSTER OLMAN ALBARRAN M.D. Performed By: #### U 24 NA, COL T V, CREA24 #### [address] #### PHOS 24HRU, CITRIC UR, U24 CA, URIC 24HRU, OXAL 24HRU, MAG 24HRU #### [facility] , Complete Blood Count Auto Di ffon 03-13-2024 Mean Corpuscular HGB Conc 33.9 g/dL Normal 32.5-35.6 [facility] Comment on above: Performed By: #### U 24 NA, COL T V, CREA24 #### [address] #### PHOS 24HRU, CITRIC UR, U24 CA, URIC 24HRU, OXAL 24HRU, MAG 24HRU #### [facility] , NRBC% 0.1 /100{WBC} Normal 0-0.5 [facility] Comment on above: Performed By: #### U 24 NA, COL T V, CREA24 #### [place] [address] [place] #### PHOS 24HRU, CITRIC UR, U24 CA, URIC 24HRU, OXAL 24HRU, MAG 24HRU #### [facility] , Comprehensive Metabolic Pane vivek 03-13-2024 Albumin [Mass/Vol] 3.7 g/dL Normal 3.5-5.7 [facility] Comment on above: Performed By: #### U 24 NA, COL T V, CREA24 #### [place] [address] [place] #### PHOS 24HRU, CITRIC UR, U24 CA, URIC 24HRU, OXAL 24HRU, MAG 24HRU #### [facility] , GFR/1.73 sq M.predicted MDRD (S/P/Bld) [Vol rate/Area] mL/min/{1.73_m2} Normal [facility] Comment on above: Performed By: #### U 24 NA, COL T V, CREA24 #### [place] [address] [place] #### PHOS 24HRU, CITRIC UR, U24 CA, URIC 24HRU, OXAL 24HRU, MAG 24HRU #### [facility] , Creatinine [Mass/volume] in Serum or PlasmaOrdered By: Romel Davis on 03-13-2024 Creatinine [Mass/Vol] 0.94 mg/dL Normal 0.70-1.30 [facility] Comment on above: Performed By: #### U 24 NA, COL T V, CREA24 #### [place] [address] [place] #### PHOS 24HRU, CITRIC UR, U24 CA, URIC 24HRU, OXAL 24HRU, MAG 24HRU #### [facility] , Dipstick and Microscopicon 0 03-13-2024 Appearance (U) Clear Normal Clear [facility] Comment on above: Order Comment: URINE COLLECTION TIME (HRS): 24 URINE VOLUME (MILLILTERS): 2960 Performed By: #### U 24 NA, COL T V, CREA24 #### [place] [address] [place] #### PHOS 24HRU, CITRIC UR, U24 CA, URIC 24HRU, OXAL 24HRU, MAG 24HRU #### [facility] , Bacteria,Urine None Seen Normal None Seen [facility] Comment on above: Order Comment: URINE COLLECTION TIME (HRS): 24 URINE VOLUME (MILLILTERS): 2960 Performed By: #### U 24 NA, COL T V, CREA24 #### [address] #### PHOS 24HRU, CITRIC UR, U24 CA, URIC 24HRU, OXAL 24HRU, MAG 24HRU #### [facility] , Bilirubin,Urine Negative Normal Negative [facility] Comment on above: Order Comment: URINE COLLECTION TIME (HRS): 24 URINE VOLUME (MILLILTERS): 2960 Performed By: #### U 24 NA, COL T V, CREA24 #### [address] #### PHOS 24HRU, CITRIC UR, U24 CA, URIC 24HRU, OXAL 24HRU, MAG 24HRU #### [facility] , Glucose Ql (U) Normal Normal Normal [facility] Comment on above: Order Comment: URINE COLLECTION TIME (HRS): 24 URINE VOLUME (MILLILTERS): 2960 Performed By: #### U 24 NA, COL T V, CREA24 #### [address] #### PHOS 24HRU, CITRIC UR, U24 CA, URIC 24HRU, OXAL 24HRU, MAG 24HRU #### [facility] , Hyaline Casts,Urine 0-8 Normal 0-8 [facility] Comment on above: Order Comment: URINE COLLECTION TIME (HRS): 24 URINE VOLUME (MILLILTERS): 2960 Result Comment: PERF ORMED BY: [place] [address] PATHOLOGIST ALARM MECHANISM ADJUSTER OLMAN ALBARRAN M.D. Performed By: #### U 24 NA, COL T V, CREA24 #### [address] #### PHOS 24HRU, CITRIC UR, U24 CA, URIC 24HRU, OXAL 24HRU, MAG 24HRU #### [facility] , Ketones Ql (U) Trace High Negative [facility] Comment on above: Order Comment: URINE COLLECTION TIME (HRS): 24 URINE VOLUME (MILLILTERS): 2960 Performed By: #### U 24 NA, COL T V, CREA24 #### [address] #### PHOS 24HRU, CITRIC UR, U24 CA, URIC 24HRU, OXAL 24HRU, MAG 24HRU #### [facility] , Leukocyte esterase Test strip Ql (U) 1+ High Negative [facility] Comment on above: Order Comment: URINE COLLECTION TIME (HRS): 24 URINE VOLUME (MILLILTERS): 2960 Performed By: #### U 24 NA, COL T V, CREA24 #### [address] #### PHOS 24HRU, CITRIC UR, U24 CA, URIC 24HRU, OXAL 24HRU, MAG 24HRU #### [facility] , Nitrite,Urine Negative Normal Negative [facility] Comment on above: Order Comment: URINE COLLECTION TIME (HRS): 24 URINE VOLUME (MILLILTERS): 2960 Performed By: #### U 24 NA, COL T V, CREA24 #### [address] #### PHOS 24HRU, CITRIC UR, U24 CA, URIC 24HRU, OXAL 24HRU, MAG 24HRU #### [facility] , Occult Blood,Urine Negative Normal Negative [facility] Comment on above: Order Comment: URINE COLLECTION TIME (HRS): 24 URINE VOLUME (MILLILTERS): 2960 Performed By: #### U 24 NA, COL T V, CREA24 #### [place] [address] [place] #### PHOS 24HRU, CITRIC UR, U24 CA, URIC 24HRU, OXAL 24HRU, MAG 24HRU #### [facility] , Protein,Urine Negative Normal Negative [facility] Comment on above: Order Comment: URINE COLLECTION TIME (HRS): 24 URINE VOLUME (MILLILTERS): 2960 Performed By: #### U 24 NA, COL T V, CREA24 #### [address] #### PHOS 24HRU, CITRIC UR, U24 CA, URIC 24HRU, OXAL 24HRU, MAG 24HRU #### [facility] , RBC,Urine 1-2 Normal 0-4 [facility] Comment on above: Order Comment: URINE COLLECTION TIME (HRS): 24 URINE VOLUME (MILLILTERS): 2960 Performed By: #### U 24 NA, COL T V, CREA24 #### [address] #### PHOS 24HRU, CITRIC UR, U24 CA, URIC 24HRU, OXAL 24HRU, MAG 24HRU #### [facility] , Specificy [place],Urine 1.024 Normal 1.001-1.03 0 [facility] Comment on above: Order Comment: URINE COLLECTION TIME (HRS): 24 URINE VOLUME (MILLILTERS): 2960 Performed By: #### U 24 NA, COL T V, CREA24 #### [address] #### PHOS 24HRU, CITRIC UR, U24 CA, URIC 24HRU, OXAL 24HRU, MAG 24HRU #### [facility] , Squamous Epithelial Cell,Urine None Seen Normal 0-2 [facility] Comment on above: Order Comment: URINE COLLECTION TIME (HRS): 24 URINE VOLUME (MILLILTERS): 2960 Performed By: #### U 24 NA, COL T V, CREA24 #### [facility] [address] [place] [address] [place] #### PHOS 24HRU, CITRIC UR, U24 CA, URIC 24HRU, OXAL 24HRU, MAG 24HRU #### [facility] , Urobilinogen,Urine Normal Normal Normal [facility] Comment on above: Order Comment: URINE COLLECTION TIME (HRS): 24 URINE VOLUME (MILLILTERS): 2960 Performed By: #### U 24 NA, COL T V, CREA24 #### [address] #### PHOS 24HRU, CITRIC UR, U24 CA, URIC 24HRU, OXAL 24HRU, MAG 24HRU #### [facility] , WBC LM.HPF (Urine sed) [#/Area] 0 /[HPF] Normal 0-4 [facility] Comment on above: Order Comment: URINE COLLECTION TIME (HRS): 24 URINE VOLUME (MILLILTERS): 2960 Performed By: #### U 24 NA, COL T V, CREA24 #### [address] #### PHOS 24HRU, CITRIC UR, U24 CA, URIC 24HRU, OXAL 24HRU, MAG 24HRU #### [facility] , Erythrocyte Sedimentation Ra bruno 03-13-2024 ESR (Bld) [Velocity] 29 mm/h High 0-19 [facility] Comment on above: Result Comment: PERF ORMED BY: [place] [address] PATHOLOGIST ALARM MECHANISM ADJUSTER OLMAN ALBARRAN M.D. Performed By: #### U 24 NA, COL T V, CREA24 #### [address] #### PHOS 24HRU, CITRIC UR, U24 CA, URIC 24HRU, OXAL 24HRU, MAG 24HRU #### [facility] , Erythrocyte distribution wid th [Ratio] by Automated countOrdered By: Romel Davis on 03-13-2024 Erythrocyte distribution width (RBC) [Ratio] 14.8 % Normal 12.0-14.8 [facility] Comment on above: Performed By: #### U 24 NA, COL T V, CREA24 #### [address] #### PHOS 24HRU, CITRIC UR, U24 CA, URIC 24HRU, OXAL 24HRU, MAG 24HRU #### [facility] , Erythrocyte sedimentation ra te by Photometric methodOrdered By: Romel Mendezrow on 03-13-2024 ESR Photometric method (Bld) [Velocity] 29 mm/hr High 0-19 [facility] Erythrocytes [#/volume] in B lood by Automated countOrdered By: Romel Mendezrow on 03-13-2024 RBC (Bld) [#/Vol] 4.14 10*6/uL Normal 3.90-5.60 [facility] Comment on above: Performed By: #### U 24 NA, COL T V, CREA24 #### [facility] [address] [place] [address] #### PHOS 24HRU, CITRIC UR, U24 CA, URIC 24HRU, OXAL 24HRU, MAG 24HRU #### [facility] , Glucose [Mass/volume] in Ser um or PlasmaOrdered By: Romel Davis on 03-13-2024 Glucose [Mass/Vol] 124 mg/dL High 70-100 [facility] Comment on above: ADA recommended refe rence rangeRandom Glucose Reference Range is dependent on time and content of last meal. Glucose of more than 200 mg/dL in a nonstressed, ambulatory subject supports the diagnosis of Diabetes Mellitus. Result Comment: [place] om Glucose Reference Range is dependent on time and content of last meal. Glucose of more than 200 mg/dL in a nonstressed, ambulatory subject supports the diagnosis of Diabetes Mellitus. ADA recommended reference range Performed By: #### U 24 NA, COL T V, CREA24 #### [facility] [address] [place] [address] [place] #### PHOS 24HRU, CITRIC UR, U24 CA, URIC 24HRU, OXAL 24HRU, MAG 24HRU #### [facility] , Hematocrit [Volume Fraction] of Blood by Automated countOrdered By: Romel Ryan on 03-13-2024 Hematocrit (Bld) [Volume fraction] 36.6 % Low 38.8-50.0 [facility] Comment on above: Performed By: #### U 24 NA, COL T V, CREA24 #### [facility] [address] [place] [address] #### PHOS 24HRU, CITRIC UR, U24 CA, URIC 24HRU, OXAL 24HRU, MAG 24HRU #### [facility] , Hemoglobin [Mass/volume] in BloodOrdered By: Romel Davis on 03-13-2024 Hemoglobin (Bld) [Mass/Vol] 12.4 g/dL Low 13.0-17.0 [facility] Comment on above: Performed By: #### U 24 NA, COL T V, CREA24 #### [facility] [address] [place] [address] #### PHOS 24HRU, CITRIC UR, U24 CA, URIC 24HRU, OXAL 24HRU, MAG 24HRU #### [facility] , Ketones Auto test strip (U) [Mass/Vol]Ordered By: Romel Davis on 03-13-2024 Ketones (U) [Mass/Vol] Trace High Negative [facility] Laboratory - UrinalysisOrder ed By: Romel Davis on 03-13-2024 Hyaline casts LM Ql (Urine sed) 0-8 [LPF] 0-8 [facility] Leukocytes [#/volume] correc nat for nucleated erythrocytes in Blood by Automated counOrdered By: Romel Davis on 03-13-2024 WBC corrected for nucl RBC Auto (Bld) [#/Vol] 6.5 10*3/uL 4.1-10.5 [facility] Leukocytes [#/volume] in Blo od by Automated countOrdered By: Romel Davis on 03-13-2024 WBC (Bld) [#/Vol] 6.5 10*3/uL Normal 4.1-10.5 [facility] Comment on above: Performed By: #### U 24 NA, COL T V, CREA24 #### [facility] [address] [place] [address] [place] #### PHOS 24HRU, CITRIC UR, U24 CA, URIC 24HRU, OXAL 24HRU, MAG 24HRU #### [facility] , Lymphocytes [#/volume] in Bl ood by Automated countOrdered By: Romel Davis on 03-13-2024 Lymphocytes (Bld) [#/Vol] 0.8 10*3/uL Low 1.00-4.8 [facility] Comment on above: Performed By: #### U 24 NA, COL T V, CREA24 #### [facility] [address] [place] [address] [place] #### PHOS 24HRU, CITRIC UR, U24 CA, URIC 24HRU, OXAL 24HRU, MAG 24HRU #### [facility] , Lymphocytes/100 leukocytes i n Blood by Automated countOrdered By: Romel Davis on 03-13-2024 Lymphocytes/100 WBC (Bld) 12.1 % Normal . [facility] Comment on above: Performed By: #### U 24 NA, COL T V, CREA24 #### [place] [address] [place] #### PHOS 24HRU, CITRIC UR, U24 CA, URIC 24HRU, OXAL 24HRU, MAG 24HRU #### [facility] , MCH [Entitic mass] by Automa nat countOrdered By: Romel Davis on 03-13-2024 MCH (RBC) [Entitic mass] 30.0 pg Normal 27.5-35.2 [facility] Comment on above: Performed By: #### U 24 NA, COL T V, CREA24 #### [place] [address] [place] #### PHOS 24HRU, CITRIC UR, U24 CA, URIC 24HRU, OXAL 24HRU, MAG 24HRU #### [facility] , MCHC Auto (RBC) [Mass/Vol]Or dered By: Romel Davis on 03-13-2024 MCHC (RBC) [Mass/Vol] 33.9 g/dL 32.5-35.6 [facility] MCV [Entitic volume] by Auto mated countOrdered By: Romel Davis on 03-13-2024 MCV (RBC) [Entitic vol] 88.3 fL Normal 83.5-101 [facility] Comment on above: Performed By: #### U 24 NA, COL T V, CREA24 #### [facility] [address] [place] [address] [place] #### PHOS 24HRU, CITRIC UR, U24 CA, URIC 24HRU, OXAL 24HRU, MAG 24HRU #### [facility] , Neutrophils [#/volume] in Bl ood by Automated countOrdered By: Romel Davis on 03-13-2024 Neutrophils (Bld) [#/Vol] 4.9 10*3/uL Normal 1.8-7.7 [facility] Comment on above: Performed By: #### U 24 NA, COL T V, CREA24 #### [facility] [address] [place] [address] #### PHOS 24HRU, CITRIC UR, U24 CA, URIC 24HRU, OXAL 24HRU, MAG 24HRU #### [facility] , Nitrite Test strip Ql (U)Ord ered By: Romel Davis on 03-13-2024 Nitrite Ql (U) Negative Negative [facility] No Panel InformationOrdered By: Romel Davis on 03-13-2024 Estimated GFR (CKD-EPI) > 60.0 mL/Min [facility] Creatinine Clearance (Chem N/A [facility] Total Complement (CH50) >60 U/mL >41 [facility] Comment on above: Age Male Female 3 [...] determine out of range values.Performed at: - [facility] [id number] Director: Richy Ardon PhD, Phone: [phone] Nucleated erythrocytes [Pres ence] in Blood by Automated countOrdered By: Romelsera Davis on 03-13-2024 Nucleated RBC Auto Ql (Bld) 0.1 /100{WBC} 0-0.5 [facility] Platelet mean volume [Entiti c volume] in Blood by Automated countOrdered By: Romel Mendezrow on 03-13-2024 Platelet mean volume (Bld) [Entitic vol] 8.0 fL Normal 6.6-10.1 [facility] Comment on above: Performed By: #### U 24 NA, COL T V, CREA24 #### [facility] [address] [place] [address] [place] #### PHOS 24HRU, CITRIC UR, U24 CA, URIC 24HRU, OXAL 24HRU, MAG 24HRU #### [facility] , Platelets [#/volume] in Bloo d by Automated countOrdered By: Romel Davis on 03-13-2024 Platelets (Bld) [#/Vol] 258 10*3/uL Normal 150-450 [facility] Comment on above: Performed By: #### U 24 NA, COL T V, CREA24 #### [facility] [address] [place] [address] [place] #### PHOS 24HRU, CITRIC UR, U24 CA, URIC 24HRU, OXAL 24HRU, MAG 24HRU #### [facility] , Potassium [Moles/volume] in Serum or PlasmaOrdered By: Romel Davis on 03-13-2024 Potassium [Moles/Vol] 4.3 mmol/L Normal 3.5-5.1 [facility] Comment on above: Performed By: #### U 24 NA, COL T V, CREA24 #### [facility] [address] [place] [address] [place] #### PHOS 24HRU, CITRIC UR, U24 CA, URIC 24HRU, OXAL 24HRU, MAG 24HRU #### [facility] , Protein Auto test strip (U) [Mass/Vol]Ordered By: Romel Davis on 03-13-2024 Protein (U) [Mass/Vol] Negative Negative [facility] Protein [Mass/volume] in Ser um or PlasmaOrdered By: Romel Davis on 03-13-2024 Protein [Mass/Vol] 6.0 g/dL Low 6.4-8.9 [facility] Comment on above: Performed By: #### U 24 NA, COL T V, CREA24 #### [facility] [address] [place] [address] #### PHOS 24HRU, CITRIC UR, U24 CA, URIC 24HRU, OXAL 24HRU, MAG 24HRU #### [facility] , Serum globulin measurement b y calculation (mass/volume)Ordered By: Romel Davis on 03-13-2024 Globulin (S) [Mass/Vol] 2.3 g/dL Normal [facility] Comment on above: Performed By: #### U 24 NA, COL T V, CREA24 #### [address] #### PHOS 24HRU, CITRIC UR, U24 CA, URIC 24HRU, OXAL 24HRU, MAG 24HRU #### [facility] , Serum or plasma albumin/glob ulin mass ratioOrdered By: Romel Davis on 03-13-2024 Albumin/Globulin [Mass ratio] 1.6 {ratio} [facility] Comment on above: Performed By: #### U 24 NA, COL T V, CREA24 #### [place] [address] [place] #### PHOS 24HRU, CITRIC UR, U24 CA, URIC 24HRU, OXAL 24HRU, MAG 24HRU #### [facility] , Serum or plasma anion gap de terminationOrdered By: Romel Davis on 03-13-2024 Anion gap [Moles/Vol] 11.3 mmol/L Normal 6.0-15.[address] [facility] Comment on above: Performed By: #### U 24 NA, COL T V, CREA24 #### [place] [address] [place] #### PHOS 24HRU, CITRIC UR, U24 CA, URIC 24HRU, OXAL 24HRU, MAG 24HRU #### [facility] , Serum or plasma complement C 3 measurement (mass/volume)Ordered By: Romel Davis on 03-13-2024 Complement C3 [Mass/Vol] 153 mg/dL 82-167 [facility] Comment on above: Performed at: [place] [id number] Director: Richy Ardon PhD, Phone: [phone] Serum or plasma complement C 4 measurement (mass/volume)Ordered By: Romel Davis on 03-13-2024 Complement C4 [Mass/Vol] 24 mg/dL 12-38 [facility] Sodium [Moles/volume] in Ser um or PlasmaOrdered By: Romel Davis on 03-13-2024 Sodium [Moles/Vol] 137 mmol/L Normal 136-145 [facility] Comment on above: Performed By: #### U 24 NA, COL T V, CREA24 #### [facility] [address] [place] [address] #### PHOS 24HRU, CITRIC UR, U24 CA, URIC 24HRU, OXAL 24HRU, MAG 24HRU #### [facility] , Specific gravity Auto test s trip (U) [Rel density]Ordered By: Romel Davis on 03-13-2024 Specific gravity (U) [Rel density] 1.024 1.001-1.03 0 [facility] Squamous epithelial cells de tection in urine sediment by light microscopyOrdered By: Romel Davis on 03-13-2024 Epithelial cells.squamous LM Ql (Urine sed) None seen [HPF] 0-2 [facility] Urea nitrogen [Mass/volume] in Serum or PlasmaOrdered By: Romel Davis on 03-13-2024 Urea nitrogen [Mass/Vol] 26 mg/dL High 7- [facility] Comment on above: Performed By: #### U 24 NA, COL T V, CREA24 #### [facility] [address] [place] [address] [place] #### PHOS 24HRU, CITRIC UR, U24 CA, URIC 24HRU, OXAL 24HRU, MAG 24HRU #### [facility] , Urine bacteria detection by automated methodOrdered By: Romel Davis on 03-13-2024 Bacteria Auto Ql (U) None seen None Seen [facility] Urine clarity by refractomet ry automatedOrdered By: Romel Davis on 03-13-2024 Clarity Refractometry automated (U) Clear Clear [facility] Urine glucose measurement by automated test strip (mass/volume)Ordered By: Romel Davis on 03-13-2024 Glucose Auto test strip (U) [Mass/Vol] Normal mg/dL Normal [facility] Urine hemoglobin detection b y automated test stripOrdered By: Romel Davis on 03-13-2024 Hemoglobin Auto test strip Ql (U) Negative Negative [facility] Urine leukocyte esterase det ection by automated test stripOrdered By: Romel Davis on 03-13-2024 Leukocyte esterase Auto test strip Ql (U) 1+ High Negative [facility] Urine pH measurement by auto mated test stripOrdered By: Romel Davis on 03-13-2024 pH (U) 7.0 [pH] Normal 5.0-9.0 [facility] Comment on above: Order Comment: URINE COLLECTION TIME (HRS): 24 URINE VOLUME (MILLILTERS): 2960 Performed By: #### U 24 NA, COL T V, CREA24 #### [place] [address] [place] #### PHOS 24HRU, CITRIC UR, U24 CA, URIC 24HRU, OXAL 24HRU, MAG 24HRU #### [facility] , Urobilinogen Auto test strip (U) [Mass/Vol]Ordered By: Romel Davis on 03-13-2024 Urobilinogen (U) [Mass/Vol] Normal mg/dL Normal [facility] MR cervical spine wo conon 0 03-08-2024 MR cervical spine wo con [facility] [place] [place] [address] MRI Report Signed Patient: Valentin Torre MR#: [id number] 29 : 1955 Acct:[id number] Age/Sex: 68 / M ADM Date: 03/08/24 Loc: [facility] Room: [facility] Attending Dr: Mckenzie Khalil MD Copies to: Mckenzie Khalil MD Ordering Provider: Mckenzie Khalil MD Date of Service: 03/08/24 MR/MR cervical spine wo con: M48.02 - Spinal stenosis, cervical region MR cervical spine wo con 03/08/2024 9:05 AM SIGNS AND SYMPTOMS: Right upper extremity radiculopathy PROTOCOL: Multiplanar multisequence MR images of the cervical spine were obtained without IV contrast COMPARISON: 12/30/2023 and 12/18/2015 FINDINGS: The bones of the cervical spine are in anatomic alignment. There is preservation of vertebral body heights and intervertebral disc spaces. The marrow signal is within normal limits. The cord is normal in signal. No epidural or paraspinous fluid collection is appreciated. The visualized paraspinous soft tissues are within normal limits. The prevertebral soft tissues are within normal limits. There is a 1.2 cm T2 hyperintense focus in the right thyroid lobe. Ultrasound correlation is recommended as malignancy is not excluded. At C2-C3: Facet degenerative changes are present bilaterally contributing to mild bilateral neural foraminal stenosis. This is worsened compared to the prior exam. No spinal canal narrowing. At C3-C4: Facet degenerative changes are present bilaterally. There is moderate bilateral neural foraminal narrowing. There is mild spinal canal stenosis. This is worse when compared to the prior exam. At C4-C5: There is a broad-based disc bulge with facet hypertrophy. There is moderate spinal canal stenosis with moderate bilateral neural foraminal stenosis. This is worse when compared to the prior exam. At C5-C6: There is a broad-based disc bulge with facet and uncovertebral degenerative change contributing to mild spinal canal narrowing and mild bilateral neural foraminal narrowing. This is similar to the prior exam. At C6-C7: There is a broad-based disc bulge with facet and operative joint degenerative change contributing to mild spinal canal narrowing with moderate to severe bilateral neural foraminal stenosis, right greater than left. This is slightly worse when compared to the prior exam. At C7-T1: There is a normal disc, central canal, and neural foramen. MR/MR cervical spine wo con IMPRESSION: At C2-C3: Facet degenerative changes are present bilaterally contributing to mild bilateral neural foraminal stenosis. This is worsened compared to the prior exam. No spinal canal narrowing. At C3-C4: Facet degenerative changes are present bilaterally. There is moderate bilateral neural foraminal narrowing. There is mild spinal canal stenosis. This is worse when compared to the prior exam. At C4-C5: There is a broad-based disc bulge with facet hypertrophy. There is moderate spinal canal stenosis with moderate bilateral neural foraminal stenosis. This is worse when compared to the prior exam. At C6-C7: There is a broad-based disc bulge with facet and operative joint degenerative change contributing to mild spinal canal narrowing with moderate to severe bilateral neural foraminal stenosis, right greater than left. This is slightly worse when compared to the prior exam. There is a 1.2 cm T2 hyperintense focus in the right thyroid lobe. Ultrasound correlation is recommended as malignancy is not excluded. No cord compression or cord signal abnormality. Impression dictated by: Yaneth Bill M.D.03/08/2024 12:27 PM Dictation Location: [place] [address] Transcribed By: [facility] 03/08/24 1227 Dictated By: Yaneth Bill II, MD 03/08/24 1221 Signed By: 03/08/24 1227 Normal [facility] Operative Reporton Operative Report [id number]#1.00TIFF Normal [facility] RAD - MISCon 02-16-2024 RAD - MISC [id number]#1.00TIFF Normal [facility] ECG 12-Leadon 02-03-2024 ECG 12-Lead [id number]#1.00TIFF Normal [facility] Lab Reportson 02-03-2024 Lab Reports [id number]#1.00TIFF Normal [facility] Lab Reportson 02-02-2024 Lab Reports [id number]#1.00TIFF Normal [facility] ED Note-Physicianon 01-30-20 24 ED Note-Physician [id number]#1.00TIFF Normal [facility] Lab Reportson 01-30-2024 Lab Reports [id number]#1.00TIFF Normal [facility] Calculus Analysison 01-26-20 24 Calcium oxalate dihydrate Infrared spectroscopy (Stone) [Mass fraction] 10 % Invalid Interpretation Code [facility] Comment on above: Performed By: #### 1 [id number] ####[facility] [address] [place] [address] Calcium oxalate monohydrate (Stone) [Mass fraction] 90 % Invalid Interpretation Code [facility] Comment on above: Performed By: #### 1 [id number] ####[facility] [address] [facility] [place] [address] Color (Stone) Alexander Invalid Interpretation Code [facility] Comment on above: Performed By: #### 1 [id number] ####[facility] [address] [facility] [place] [address] Composition Comment Invalid Interpretation Code [facility] Comment on above: Result Comment: Perc entage (Represents the % composition) Performed By: #### 1 [id number] ####[facility] [address] [facility] [place] [address] Disclaimer: Comment Invalid Interpretation Code [facility] Comment on above: Result Comment: This test was developed and its performance characteristics determined by [facility]. It has not been cleared or approved by the Food and Drug Administration. Performed at: [address] [id number] Samir De Santiago Performed By: #### 1 [id number] ####[facility] [address] [facility] [place] [address] Laboratory comment Aj (Report) Comment Invalid Interpretation Code [facility] Comment on above: Result Comment: Phys ician questions regarding Calculi Analysis contact [facility] at: [phone]. Performed By: #### 1 [id number] ####[facility] [address] [place] [address] Please Note: Comment Invalid Interpretation Code [facility] Comment on above: Result Comment: Calc yovani report will follow via computer, mail or build automation engineer delivery. Performed By: #### 1 [id number] ####[facility] [address] [place] [address] Size (Stone) [Entitic vol] 4x3 Invalid Interpretation Code [facility] Comment on above: Result Comment: Sing le piece received. Performed By: #### 1 [id number] ####[facility] [address] [place] [address] Specimen source subject Nom Comment Invalid Interpretation Code [facility] Comment on above: Result Comment: Not provided Performed By: #### 1 [id number] ####[facility] [address] [place] [address] Stone Photo Comment Invalid Interpretation Code [facility] Comment on above: Result Comment: Phot ograph will follow under a separate cover Performed By: #### 1 [id number] ####[facility] [address] [place] [address] Weight (Stone) 25 mg Invalid Interpretation Code [facility] Comment on above: Performed By: #### 1 [id number] ####[facility] [address] [place] [address] Consent for Procedure/Surger yon 01-20-2024 Consent for Procedure/Surgery [id number]#1.00TIFF Normal [facility] RAD - CT Reporton 01-20-2024 RAD - CT Report [id number]#1.00TIFF Normal [facility] Screenson 01-19-2024 Screens [id number]#1.00TIFF Normal [facility] Ambulatory Visit Summaryon 0 01-18-2024 Ambulatory [...] Zac MUNIZ MD Where: [facility] Ambulatory Visit Summary VALENTIN TORRE [...] Zac De Oliveira Where: [facility] Patient Educationon 01-18-20 24 Patient [...] these instructions at home: Medicines ? Take nqyi-oxx-bcguzfn and prescription medicines only as told by [...] care p (more content not included)... Normal [facility] Urology Office/Clinic Noteon 01-18-2024 Urology Office/Clinic Note Chief Complaint 2 week follow up to ER visit w/ KUB HPI Staff 2 wk f/u to ER visit w/ KUNuris. Last seen by Dr. Muniz 09/19/23. Previous dx: kidney stones, hx of kidney stones. *Started on Effer-K as last OV. Electrolyte panel done 10/20/23 - results given over the phone. [facility] [place] c/o abdominal pain. Was given Levofloxacin 500mg x5 days due to WBC 16.9. Also given Flomax #10 and pain medication. Found to have R ureteral stone. CT AP wo con 01/03/24 [facility] [place] [place]/03/24 - BUN 21, Cr 1.14, [...] Hydronephrosis with renal and ureteral calculous obstruction) [facility] [place] 01/02/24 due to abdominal pain. CT AP wo con 01/03/24 [facility] [place] L renal hypodensities suggesting cysts. Bilat renal stones. [employer] 5 mm. Mild R hydroureteronephrosis w/periureteral stranding secondary to a distal ureteral stone w/in 2-3 cm of UVJ measuring 4 mm. 01/03/24 - BUN 21. Cr 1.14. eGFR >60. KUB 01/11/24 FR - Kidneys are partially obscured, R>L. 3 [...] Electrolyte panel 10/20/23 - wnl. KUB 01/11/24 [facility] [place] Kidneys are partially obscured, R>L. [...] With When Contact Information Zac MUNIZ MD, [facility] [address], [place], [facility]- Additional Instructions: schedule L ESWL Patient Education Lithotripsy, Care After Lithotripsy Teena López (more content not included)... Normal [facility] Comment on above: Result Comment: Elec tronically Signed By: Zac MUNIZ MD\.br\Date and Time Signed: 01/18/24 09:36 EST\.br\Electronically Co-Signed By: Teena Stanley\.br\Date and Time Co-Signed: 01/18/24 09:35 EST [facility] 01-12-2024 Lab Reports [id number]#1.00TIFF Normal [facility] RAD - MISCon 01-12-2024 RAD - MISC [id number]#1.00TIFF Normal [facility] Carbon dioxide, total [Moles /volume] in Serum or PlasmaOrdered By: Zac Muniz on 01-11-2024 CO2 [Moles/Vol] 22.4 mmol/L Normal 21.0-31.0 [facility] Comment on above: Performed By: #### U 24 NA, COL T V, CREA24 #### [facility] [address] [place] [address] [place] #### PHOS 24HRU, CITRIC UR, U24 CA, URIC 24HRU, OXAL 24HRU, MAG 24HRU #### [facility] , Chloride [Moles/volume] in S ace or PlasmaOrdered By: Zac Muniz on 01-11-2024 Chloride [Moles/Vol] 104 mmol/L Normal 98-107 [facility] Comment on above: Performed By: #### U 24 NA, COL T V, CREA24 #### [facility] [address] [place] [address] [place] #### PHOS 24HRU, CITRIC UR, U24 CA, URIC 24HRU, OXAL 24HRU, MAG 24HRU #### [facility] , MR lumbar spine wo/w conon 0 01-11-2024 MR lumbar spine wo/w con [facility] [place] [address] [place] [address] MRI Report Signed Patient: Valentin Torre MR#: [id number] 29 : 1955 Acct:[id number] Age/Sex: 68 / M ADM Date: 01/10/24 Loc: MR Room: Type: [facility] Attending Dr: Мария DUMONTC Copies to: WILLOW Barba Ordering Provider: WILLOW [...] Yaneth Bill M.D.01/11/2024 12:50 PM Dictation Location: [place] [address] Transcribed By: MARV 01/11/24 1250 Dictated By: Yaneth Bill II, MD 01/11/24 1244 Signed By: 01/11/24 1250 Normal [facility] Potassium [Moles/volume] in Serum or PlasmaOrdered By: Zac Muniz on 01-11-2024 Potassium [Moles/Vol] 4.4 mmol/L Normal 3.5-5.1 [facility] Comment on above: Performed By: #### U 24 NA, COL T V, CREA24 #### [address] #### PHOS 24HRU, CITRIC UR, U24 CA, URIC 24HRU, OXAL 24HRU, MAG 24HRU #### [facility] , Serum or plasma anion gap de terminationOrdered By: Zac Muniz on 01-11-2024 Anion gap [Moles/Vol] 13.0 mmol/L Normal 6.0-15.[address] [facility] Comment on above: Result Comment: PERF ORMED BY: [place] [address] PATHOLOGIST ALARM MECHANISM ADJUSTER OLMAN ALBARRAN M.D. Performed By: #### U 24 NA, COL T V, CREA24 #### [facility] [address] [place] [address] #### PHOS 24HRU, CITRIC UR, U24 CA, URIC 24HRU, OXAL 24HRU, MAG 24HRU #### [facility] , Sodium [Moles/volume] in Ser um or PlasmaOrdered By: Zac Muniz on 01-11-2024 Sodium [Moles/Vol] 135 mmol/L Low 136-145 [facility] Comment on above: Performed By: #### U 24 NA, COL T V, CREA24 #### [facility] [address] [place] [address] [facility] #### PHOS 24HRU, CITRIC UR, U24 CA, URIC 24HRU, OXAL 24HRU, MAG 24HRU #### [facility] , XR abdomen 1Von 01-11-2024 XR abdomen 1V [facility] Main [place] [address] [place], [place] [id number] XRay Report Signed Patient: Valentin Torre MR#: [id number] 29 : 1955 Acct:[id number] Age/Sex: 68 / M ADM Date: 01/11/24 Loc: XD Room: Type: [facility] Attending Dr: Zac Muniz MD Copies to: [...] Christine Alexandra M.D.01/11/2024 1:27 PM Dictation Location: [place] [address] Transcribed By: MARV 01/11/24 1327 Dictated By: Christine Alexandra MD 01/11/24 1321 Signed By: 01/11/24 1327 Normal [facility] Alanine aminotransferase [En zymatic activity/volume] in Serum or PlasmaOrdered By: Edenilson Reinoso on 01-03-2024 ALT [Catalytic activity/Vol] 43 U/L Normal 7-52 [facility] Comment on above: Performed By: #### U 24 NA, COL T V, CREA24 #### [facility] [address] [place] [address] #### PHOS 24HRU, CITRIC UR, U24 CA, URIC 24HRU, OXAL 24HRU, MAG 24HRU #### [facility] , Albumin [Mass/volume] in Ser um or Plasma by Bromocresol green (BCG) dye binding methoOrdered By: Edenilson Reinoso on 01-03-2024 Albumin BCG dye [Mass/Vol] 4.6 g/dL 3.5-5.7 [facility] Alkaline phosphatase [Enzyma tic activity/volume] in Serum or PlasmaOrdered By: Edenilson Reinoso on 01-03-2024 ALP [Catalytic activity/Vol] 78 U/L Normal 34-104 [facility] Comment on above: Performed By: #### U 24 NA, COL T V, CREA24 #### [facility] [address] [place] [address] #### PHOS 24HRU, CITRIC UR, U24 CA, URIC 24HRU, OXAL 24HRU, MAG 24HRU #### [facility] , Aspartate aminotransferase [ Enzymatic activity/volume] in Serum or PlasmaOrdered By: Edenilson Reinoso on 01-03-2024 AST [Catalytic activity/Vol] 28 U/L Normal 13-39 [facility] Comment on above: Performed By: #### U 24 NA, COL T V, CREA24 #### [facility] [address] [place] [address] #### PHOS 24HRU, CITRIC UR, U24 CA, URIC 24HRU, OXAL 24HRU, MAG 24HRU #### [facility] , Automated basophil %Ordered By: Edenilson Reinoso on 01-03-2024 Basophils/100 WBC (Bld) 0.2 % Normal . [facility] Comment on above: Performed By: #### U 24 NA, COL T V, CREA24 #### [facility] [address] [place] [address] [place] #### PHOS 24HRU, CITRIC UR, U24 CA, URIC 24HRU, OXAL 24HRU, MAG 24HRU #### [facility] , Automated basophil countOrde red By: Edenilson Reinoso on 01-03-2024 Basophils (Bld) [#/Vol] 0.0 10*3/uL Normal 0.0-0.2 [facility] Comment on above: Result Comment: PERF ORMED BY: [place] [address] PATHOLOGIST ALARM MECHANISM ADJUSTER OLMAN ALBARRAN M.D. Performed By: #### U 24 NA, COL T V, CREA24 #### [address] #### PHOS 24HRU, CITRIC UR, U24 CA, URIC 24HRU, OXAL 24HRU, MAG 24HRU #### [facility] , Automated blood monocyte cou ntOrdered By: Edenilson Reinoso on 01-03-2024 Monocytes (Bld) [#/Vol] 1.1 10*3/uL High 0.0-0.8 [facility] Comment on above: Performed By: #### U 24 NA, COL T V, CREA24 #### [address] #### PHOS 24HRU, CITRIC UR, U24 CA, URIC 24HRU, OXAL 24HRU, MAG 24HRU #### [facility] , Automated eosinophil %Ordere d By: Edenilson Reinoso on 01-03-2024 Eosinophils/100 WBC (Bld) 0.3 % Normal . [facility] Comment on above: Performed By: #### U 24 NA, COL T V, CREA24 #### [facility] [address] [place] [address] [place] #### PHOS 24HRU, CITRIC UR, U24 CA, URIC 24HRU, OXAL 24HRU, MAG 24HRU #### [facility] , Automated eosinophil countOr dered By: Edenilson Reinoso on 01-03-2024 Eosinophils (Bld) [#/Vol] 0.0 10*3/uL Normal 0.0-0.45 [facility] Comment on above: Performed By: #### U 24 NA, COL T V, CREA24 #### [facility] [address] [place] [address] [place] #### PHOS 24HRU, CITRIC UR, U24 CA, URIC 24HRU, OXAL 24HRU, MAG 24HRU #### [facility] , Automated erythrocytes count in urine sediment (number/area)Ordered By: Edenilson Reinoso on 01-03-2024 RBC Auto (Urine sed) [#/Area] 3-4 [HPF] 0-4 [facility] Automated leukocytes count i n urine sediment (number/area)Ordered By: Edenilson Reinoso on 01-03-2024 WBC Auto (Urine sed) [#/Area] 3-4 [HPF] 0-4 [facility] Automated monocyte %Ordered By: Edenilson Reinoso on 01-03-2024 Monocytes/100 WBC (Bld) 6.7 % Normal . [facility] Comment on above: Performed By: #### U 24 NA, COL T V, CREA24 #### [facility] [address] [place] [address] [place] #### PHOS 24HRU, CITRIC UR, U24 CA, URIC 24HRU, OXAL 24HRU, MAG 24HRU #### [facility] , Automated neutrophil %Ordere d By: Edenilson Reinoso on 01-03-2024 Neutrophils/100 WBC (Bld) 88.0 % Normal . [facility] Comment on above: Performed By: #### U 24 NA, COL T V, CREA24 #### [facility] [address] [place] [address] [place] #### PHOS 24HRU, CITRIC UR, U24 CA, URIC 24HRU, OXAL 24HRU, MAG 24HRU #### [facility] , Automated urine color determ inationOrdered By: Edenilson Reinoso on 01-03-2024 Color (U) Dark yellow Critically abnormal Yellow [facility] Comment on above: Order Comment: URINE COLLECTION TIME (HRS): 24 URINE VOLUME (MILLILTERS): 2960 Performed By: #### U 24 NA, COL T V, CREA24 #### [address] #### PHOS 24HRU, CITRIC UR, U24 CA, URIC 24HRU, OXAL 24HRU, MAG 24HRU #### [facility] , Bilirubin Test strip Ql (U)O rdered By: Edenilson Reinoso on 01-03-2024 Bilirubin Ql (U) Negative Negative [facility] Bilirubin.total [Mass/volume ] in Serum or PlasmaOrdered By: Edenilson Reinoso on 01-03-2024 Bilirubin [Mass/Vol] 0.6 mg/dL Normal 0.3-1.0 [facility] Comment on above: Performed By: #### U 24 NA, COL T V, CREA24 #### [address] #### PHOS 24HRU, CITRIC UR, U24 CA, URIC 24HRU, OXAL 24HRU, MAG 24HRU #### [facility] , CT abdomen pelvis wo conon 0 01-03-2024 CT abdomen pelvis wo con [facility] Main [place] [address] [place] [address] CT Scan Report Signed Patient: Valentin Torre MR#: [id number] 29 : 1955 Acct:[id number] Age/Sex: 68 / M ADM Date: 01/02/24 Loc: ER Room: Type: [facility] ER Attending Dr: Copies to: Edenilson [...] Christine Alexandra M.D.01/03/2024 9:53 AM Dictation Location: [place] [address] Transcribed By: [facility] 01/03/24 0953 Dictated By: Christine Alexandra MD 01/03/24 0947 Signed By: 01/03/24 0953 Normal [facility] Calcium [Mass/volume] in Ser um or PlasmaOrdered By: Edenilson Reinoso on 01-03-2024 Calcium [Mass/Vol] 9.3 mg/dL Normal 8.6-10.3 [facility] Comment on above: Performed By: #### U 24 NA, COL T V, CREA24 #### [address] #### PHOS 24HRU, CITRIC UR, U24 CA, URIC 24HRU, OXAL 24HRU, MAG 24HRU #### [facility] , Carbon dioxide, total [Moles /volume] in Serum or PlasmaOrdered By: Edenilson Reinoso on 01-03-2024 CO2 [Moles/Vol] 20.7 mmol/L Low 21.0-31.0 [facility] Comment on above: Performed By: #### U 24 NA, COL T V, CREA24 #### [facility] [address] [place] [address] #### PHOS 24HRU, CITRIC UR, U24 CA, URIC 24HRU, OXAL 24HRU, MAG 24HRU #### [facility] , Chloride [Moles/volume] in S ace or PlasmaOrdered By: Edenilson Reinoso on 01-03-2024 Chloride [Moles/Vol] 106 mmol/L Normal 98-107 [facility] Comment on above: Performed By: #### U 24 NA, COL T V, CREA24 #### [address] #### PHOS 24HRU, CITRIC UR, U24 CA, URIC 24HRU, OXAL 24HRU, MAG 24HRU #### [facility] , Complete Blood Count Auto Di ffon 01-03-2024 Mean Corpuscular HGB Conc 33.7 g/dL Normal 32.5-35.6 [facility] Comment on above: Performed By: #### U 24 NA, COL T V, CREA24 #### [facility] [address] [place] [address] [place] #### PHOS 24HRU, CITRIC UR, U24 CA, URIC 24HRU, OXAL 24HRU, MAG 24HRU #### [facility] , Monocytes/100 WBC (Bld) 20.70 % High 0.00-20.00 [facility] Comment on above: Result Comment: For adults in ED, MDW > 20.0 may be associated with a higher risk of sepsis during the first 12 hrs of hospital admission Performed By: #### U 24 NA, COL T V, CREA24 #### [address] #### PHOS 24HRU, CITRIC UR, U24 CA, URIC 24HRU, OXAL 24HRU, MAG 24HRU #### [facility] , NRBC% 0.3 /100{WBC} Normal 0-0.5 [facility] Comment on above: Performed By: #### U 24 NA, COL T V, CREA24 #### [place] [address] [place] #### PHOS 24HRU, CITRIC UR, U24 CA, URIC 24HRU, OXAL 24HRU, MAG 24HRU #### [facility] , Comprehensive Metabolic Pane vivek 01-03-2024 Albumin [Mass/Vol] 4.6 g/dL Normal 3.5-5.7 [facility] Comment on above: Performed By: #### U 24 NA, COL T V, CREA24 #### [address] #### PHOS 24HRU, CITRIC UR, U24 CA, URIC 24HRU, OXAL 24HRU, MAG 24HRU #### [facility] , Creatinine Clr Calc Pharmacy 73.17 Normal [facility] Comment on above: Result Comment: PERF ORMED BY: [place] [address] PATHOLOGIST ALARM MECHANISM ADJUSTER OLMAN ALBARRAN M.D. Performed By: #### U 24 NA, COL T V, CREA24 #### [place] [address] [place] #### PHOS 24HRU, CITRIC UR, U24 CA, URIC 24HRU, OXAL 24HRU, MAG 24HRU #### [facility] , GFR/1.73 sq M.predicted MDRD (S/P/Bld) [Vol rate/Area] mL/min/{1.73_m2} Normal [facility] Comment on above: Performed By: #### U 24 NA, COL T V, CREA24 #### [place] [address] [place] #### PHOS 24HRU, CITRIC UR, U24 CA, URIC 24HRU, OXAL 24HRU, MAG 24HRU #### [facility] , Creatinine [Mass/volume] in Serum or PlasmaOrdered By: Edenilson Reinoso on 01-03-2024 Creatinine [Mass/Vol] 1.14 mg/dL Normal 0.70-1.30 [facility] Comment on above: Performed By: #### U 24 NA, COL T V, CREA24 #### [facility] [address] [place] [address] #### PHOS 24HRU, CITRIC UR, U24 CA, URIC 24HRU, OXAL 24HRU, MAG 24HRU #### [facility] , Dipstick and Microscopicon 0 01-03-2024 Appearance (U) Cloudy Critically abnormal Clear [facility] Comment on above: Order Comment: URINE COLLECTION TIME (HRS): 24 URINE VOLUME (MILLILTERS): 2960 Performed By: #### U 24 NA, COL T V, CREA24 #### [address] #### PHOS 24HRU, CITRIC UR, U24 CA, URIC 24HRU, OXAL 24HRU, MAG 24HRU #### [facility] , Bacteria,Urine None Seen Normal None Seen [facility] Comment on above: Order Comment: URINE COLLECTION TIME (HRS): 24 URINE VOLUME (MILLILTERS): 2960 Performed By: #### U 24 NA, COL T V, CREA24 #### [facility] [address] [place] [address] [place] #### PHOS 24HRU, CITRIC UR, U24 CA, URIC 24HRU, OXAL 24HRU, MAG 24HRU #### [facility] , Bilirubin,Urine Negative Normal Negative [facility] Comment on above: Order Comment: URINE COLLECTION TIME (HRS): 24 URINE VOLUME (MILLILTERS): 2960 Performed By: #### U 24 NA, COL T V, CREA24 #### [facility] [address] [place] [address] [place] #### PHOS 24HRU, CITRIC UR, U24 CA, URIC 24HRU, OXAL 24HRU, MAG 24HRU #### [facility] , Glucose Ql (U) Normal Normal Normal [facility] Comment on above: Order Comment: URINE COLLECTION TIME (HRS): 24 URINE VOLUME (MILLILTERS): 2960 Performed By: #### U 24 NA, COL T V, CREA24 #### [address] #### PHOS 24HRU, CITRIC UR, U24 CA, URIC 24HRU, OXAL 24HRU, MAG 24HRU #### [facility] , Hyaline Casts,Urine 0-8 Normal 0-8 [facility] Comment on above: Order Comment: URINE COLLECTION TIME (HRS): 24 URINE VOLUME (MILLILTERS): 2960 Result Comment: PERF ORMED BY: [place] [address] PATHOLOGIST ALARM MECHANISM ADJUSTER OLMAN ALBARRAN M.D. Performed By: #### U 24 NA, COL T V, CREA24 #### [address] #### PHOS 24HRU, CITRIC UR, U24 CA, URIC 24HRU, OXAL 24HRU, MAG 24HRU #### [facility] , Ketones Ql (U) Trace High Negative [facility] Comment on above: Order Comment: URINE COLLECTION TIME (HRS): 24 URINE VOLUME (MILLILTERS): 2960 Performed By: #### U 24 NA, COL T V, CREA24 #### [address] #### PHOS 24HRU, CITRIC UR, U24 CA, URIC 24HRU, OXAL 24HRU, MAG 24HRU #### [facility] , Leukocyte esterase Test strip Ql (U) Negative Normal Negative [facility] Comment on above: Order Comment: URINE COLLECTION TIME (HRS): 24 URINE VOLUME (MILLILTERS): 2960 Performed By: #### U 24 NA, COL T V, CREA24 #### [address] #### PHOS 24HRU, CITRIC UR, U24 CA, URIC 24HRU, OXAL 24HRU, MAG 24HRU #### [facility] , Nitrite,Urine Negative Normal Negative [facility] Comment on above: Order Comment: URINE COLLECTION TIME (HRS): 24 URINE VOLUME (MILLILTERS): 2960 Performed By: #### U 24 NA, COL T V, CREA24 #### [address] #### PHOS 24HRU, CITRIC UR, U24 CA, URIC 24HRU, OXAL 24HRU, MAG 24HRU #### [facility] , Occult Blood,Urine Negative Normal Negative [facility] Comment on above: Order Comment: URINE COLLECTION TIME (HRS): 24 URINE VOLUME (MILLILTERS): 2960 Result Comment: PERF ORMED BY: [place] [address] PATHOLOGIST ALARM MECHANISM ADJUSTER OLMAN ALBARRAN M.D. Performed By: #### U 24 NA, COL T V, CREA24 #### [address] #### PHOS 24HRU, CITRIC UR, U24 CA, URIC 24HRU, OXAL 24HRU, MAG 24HRU #### [facility] , Protein,Urine Trace High Negative [facility] Comment on above: Order Comment: URINE COLLECTION TIME (HRS): 24 URINE VOLUME (MILLILTERS): 2960 Performed By: #### U 24 NA, COL T V, CREA24 #### [address] #### PHOS 24HRU, CITRIC UR, U24 CA, URIC 24HRU, OXAL 24HRU, MAG 24HRU #### [facility] , RBC,Urine 3-4 Normal 0-4 [facility] Comment on above: Order Comment: URINE COLLECTION TIME (HRS): 24 URINE VOLUME (MILLILTERS): 2960 Performed By: #### U 24 NA, COL T V, CREA24 #### [address] #### PHOS 24HRU, CITRIC UR, U24 CA, URIC 24HRU, OXAL 24HRU, MAG 24HRU #### [facility] , Specificy [place],Urine 1.034 High 1.001-1.03 0 [facility] Comment on above: Order Comment: URINE COLLECTION TIME (HRS): 24 URINE VOLUME (MILLILTERS): 2960 Performed By: #### U 24 NA, COL T V, CREA24 #### [address] #### PHOS 24HRU, CITRIC UR, U24 CA, URIC 24HRU, OXAL 24HRU, MAG 24HRU #### [facility] , Squamous Epithelial Cell,Urine 0-1 Normal 0-2 [facility] Comment on above: Order Comment: URINE COLLECTION TIME (HRS): 24 URINE VOLUME (MILLILTERS): 2960 Performed By: #### U 24 NA, COL T V, CREA24 #### [address] #### PHOS 24HRU, CITRIC UR, U24 CA, URIC 24HRU, OXAL 24HRU, MAG 24HRU #### [facility] , Urobilinogen,Urine Normal Normal Normal [facility] Comment on above: Order Comment: URINE COLLECTION TIME (HRS): 24 URINE VOLUME (MILLILTERS): 2960 Performed By: #### U 24 NA, COL T V, CREA24 #### [place] [address] [place] #### PHOS 24HRU, CITRIC UR, U24 CA, URIC 24HRU, OXAL 24HRU, MAG 24HRU #### [facility] , WBC,Urine 3-4 Normal 0-4 [facility] Comment on above: Order Comment: URINE COLLECTION TIME (HRS): 24 URINE VOLUME (MILLILTERS): 2960 Performed By: #### U 24 NA, COL T V, CREA24 #### [facility] [address] [place] [address] #### PHOS 24HRU, CITRIC UR, U24 CA, URIC 24HRU, OXAL 24HRU, MAG 24HRU #### [facility] , Erythrocyte distribution wid th [Ratio] by Automated countOrdered By: Edenilson Reinoso on 01-03-2024 Erythrocyte distribution width (RBC) [Ratio] 14.7 % Normal 12.0-14.8 [facility] Comment on above: Performed By: #### U 24 NA, COL T V, CREA24 #### [address] #### PHOS 24HRU, CITRIC UR, U24 CA, URIC 24HRU, OXAL 24HRU, MAG 24HRU #### [facility] , Erythrocytes [#/volume] in B lood by Automated countOrdered By: Edenilson Reinoso on 01-03-2024 RBC (Bld) [#/Vol] 5.52 10*6/uL Normal 3.90-5.60 [facility] Comment on above: Performed By: #### U 24 NA, COL T V, CREA24 #### [facility] [address] [place] [address] #### PHOS 24HRU, CITRIC UR, U24 CA, URIC 24HRU, OXAL 24HRU, MAG 24HRU #### [facility] , Glucose [Mass/volume] in Ser um or PlasmaOrdered By: Edenilson Reinoso on 01-03-2024 Glucose [Mass/Vol] 148 mg/dL High 70-100 [facility] Comment on above: ADA recommended refe rence rangeRandom Glucose Reference Range is dependent on time and content of last meal. Glucose of more than 200 mg/dL in a nonstressed, ambulatory subject supports the diagnosis of Diabetes Mellitus. Result Comment: [place] om Glucose Reference Range is dependent on time and content of last meal. Glucose of more than 200 mg/dL in a nonstressed, ambulatory subject supports the diagnosis of Diabetes Mellitus. ADA recommended reference range Performed By: #### U 24 NA, COL T V, CREA24 #### [facility] [address] [place] [address] [place] #### PHOS 24HRU, CITRIC UR, U24 CA, URIC 24HRU, OXAL 24HRU, MAG 24HRU #### [facility] , Hematocrit [Volume Fraction] of Blood by Automated countOrdered By: Edenilson Reinoso on 01-03-2024 Hematocrit (Bld) [Volume fraction] 49.3 % Normal 38.8-50.0 [facility] Comment on above: Performed By: #### U 24 NA, COL T V, CREA24 #### [facility] [address] [place] [address] [place] #### PHOS 24HRU, CITRIC UR, U24 CA, URIC 24HRU, OXAL 24HRU, MAG 24HRU #### [facility] , Hemoglobin [Mass/volume] in BloodOrdered By: Edenilson Reinoso on 01-03-2024 Hemoglobin (Bld) [Mass/Vol] 16.6 g/dL Normal 13.0-17.0 [facility] Comment on above: Performed By: #### U 24 NA, COL T V, CREA24 #### [facility] [address] [place] [address] #### PHOS 24HRU, CITRIC UR, U24 CA, URIC 24HRU, OXAL 24HRU, MAG 24HRU #### [facility] , Ketones Auto test strip (U) [Mass/Vol]Ordered By: Edenilson Reinoso on 01-03-2024 Ketones (U) [Mass/Vol] Trace Negative [facility] - UrinalysisOrder ed By: Edenilson Reinoso on 01-03-2024 Hyaline casts LM Ql (Urine sed) 0-8 [LPF] 0-8 [facility] Leukocytes [#/volume] correc nat for nucleated erythrocytes in Blood by Automated counOrdered By: Edenilson Reinoso on 01-03-2024 WBC corrected for nucl RBC Auto (Bld) [#/Vol] 16.9 10*3/uL 4.1-10.5 [facility] Leukocytes [#/volume] in Blo od by Automated countOrdered By: Edenilson Reinoso on 01-03-2024 WBC (Bld) [#/Vol] 16.9 10*3/uL High 4.1-10.5 [facility] Comment on above: Performed By: #### U 24 NA, COL T V, CREA24 #### [place] [address] [place] #### PHOS 24HRU, CITRIC UR, U24 CA, URIC 24HRU, OXAL 24HRU, MAG 24HRU #### [facility] , Lymphocytes [#/volume] in Bl ood by Automated countOrdered By: Edenilson Reinoso on 01-03-2024 Lymphocytes (Bld) [#/Vol] 0.8 10*3/uL Low 1.00-4.8 [facility] Comment on above: Performed By: #### U 24 NA, COL T V, CREA24 #### [address] #### PHOS 24HRU, CITRIC UR, U24 CA, URIC 24HRU, OXAL 24HRU, MAG 24HRU #### [facility] , Lymphocytes/100 leukocytes i n Blood by Automated countOrdered By: Edenilson Reinoso on 01-03-2024 Lymphocytes/100 WBC (Bld) 4.8 % Normal . [facility] Comment on above: Performed By: #### U 24 NA, COL T V, CREA24 #### [place] [address] [place] #### PHOS 24HRU, CITRIC UR, U24 CA, URIC 24HRU, OXAL 24HRU, MAG 24HRU #### [facility] , MCH [Entitic mass] by Automa nat countOrdered By: Edenilson Reinoso on 01-03-2024 MCH (RBC) [Entitic mass] 30.1 pg Normal 27.5-35.2 [facility] Comment on above: Performed By: #### U 24 NA, COL T V, CREA24 #### [place] [address] [place] #### PHOS 24HRU, CITRIC UR, U24 CA, URIC 24HRU, OXAL 24HRU, MAG 24HRU #### [facility] , MCHC Auto (RBC) [Mass/Vol]Or dered By: Edenilson Reinoso on 01-03-2024 MCHC (RBC) [Mass/Vol] 33.7 g/dL 32.5-35.6 [facility] MCV [Entitic volume] by Auto mated countOrdered By: Edenilson Reinoso on 01-03-2024 MCV (RBC) [Entitic vol] 89.3 fL Normal 83.5-101 [facility] Comment on above: Performed By: #### U 24 NA, COL T V, CREA24 #### [facility] [address] [place] [address] [place] #### PHOS 24HRU, CITRIC UR, U24 CA, URIC 24HRU, OXAL 24HRU, MAG 24HRU #### [facility] , Monocyte distribution width [Entitic volume] in Blood by AutomatedOrdered By: Edenilson Reinoso on 01-03-2024 Monocyte distribution width Auto (Bld) [Entitic vol] 20.70 % 0.00-20.00 [facility] Comment on above: For adults in ED, MD W > 20.0 may be associated with a higher risk of sepsis during the first 12 hrs of hospital admission Neutrophils [#/volume] in Bl ood by Automated countOrdered By: Edenilson Reinoso on 01-03-2024 Neutrophils (Bld) [#/Vol] 14.9 10*3/uL High 1.8-7.7 [facility] Comment on above: Performed By: #### U 24 NA, COL T V, CREA24 #### [facility] [address] [place] [address] [place] #### PHOS 24HRU, CITRIC UR, U24 CA, URIC 24HRU, OXAL 24HRU, MAG 24HRU #### [facility] , Nitrite Test strip Ql (U)Ord ered By: Edenilson Reinoso on 01-03-2024 Nitrite Ql (U) Negative Negative [facility] No Panel InformationOrdered By: Edenilson Reinoso on 01-03-2024 Estimated GFR (CKD-EPI) > 60.0 mL/Min [facility] Creatinine Clearance (Chem 73.17 [facility] Nucleated erythrocytes [Pres ence] in Blood by Automated countOrdered By: Edenilson Reinoso on 01-03-2024 Nucleated RBC Auto Ql (Bld) 0.3 /100{WBC} 0-0.5 [facility] Platelet mean volume [Entiti c volume] in Blood by Automated countOrdered By: Edenilson Reinoso on 01-03-2024 Platelet mean volume (Bld) [Entitic vol] 8.5 fL Normal 6.6-10.1 [facility] Comment on above: Performed By: #### U 24 NA, COL T V, CREA24 #### [facility] [address] [place] [address] #### PHOS 24HRU, CITRIC UR, U24 CA, URIC 24HRU, OXAL 24HRU, MAG 24HRU #### [facility] , Platelets [#/volume] in Bloo d by Automated countOrdered By: Edenilson Reinoso on 01-03-2024 Platelets (Bld) [#/Vol] 229 10*3/uL Normal 150-450 [facility] Comment on above: Performed By: #### U 24 NA, COL T V, CREA24 #### [facility] [address] [place] [address] [place] #### PHOS 24HRU, CITRIC UR, U24 CA, URIC 24HRU, OXAL 24HRU, MAG 24HRU #### [facility] , Potassium [Moles/volume] in Serum or PlasmaOrdered By: Edenilson Reinoso on 01-03-2024 Potassium [Moles/Vol] 4.4 mmol/L Normal 3.5-5.1 [facility] Comment on above: Performed By: #### U 24 NA, COL T V, CREA24 #### [facility] [address] [place] [address] [place] #### PHOS 24HRU, CITRIC UR, U24 CA, URIC 24HRU, OXAL 24HRU, MAG 24HRU #### [facility] , Protein Auto test strip (U) [Mass/Vol]Ordered By: Edenilson Reinoso on 01-03-2024 Protein (U) [Mass/Vol] Trace mg/dL Negative [facility] Protein [Mass/volume] in Ser um or PlasmaOrdered By: Edenilson Reinoso on 01-03-2024 Protein [Mass/Vol] 7.0 g/dL Normal 6.4-8.9 [facility] Comment on above: Performed By: #### U 24 NA, COL T V, CREA24 #### [address] #### PHOS 24HRU, CITRIC UR, U24 CA, URIC 24HRU, OXAL 24HRU, MAG 24HRU #### [facility] , Serum globulin measurement b y calculation (mass/volume)Ordered By: Edenilson Reinoso on 01-03-2024 Globulin (S) [Mass/Vol] 2.4 g/dL Normal [facility] Comment on above: Performed By: #### U 24 NA, COL T V, CREA24 #### [address] #### PHOS 24HRU, CITRIC UR, U24 CA, URIC 24HRU, OXAL 24HRU, MAG 24HRU #### [facility] , Serum or plasma albumin/glob ulin mass ratioOrdered By: Edenilson Reinoso on 01-03-2024 Albumin/Globulin [Mass ratio] 1.9 {ratio} Normal [facility] Comment on above: Performed By: #### U 24 NA, COL T V, CREA24 #### [facility] [address] [place] [address] #### PHOS 24HRU, CITRIC UR, U24 CA, URIC 24HRU, OXAL 24HRU, MAG 24HRU #### [facility] , Serum or plasma anion gap de terminationOrdered By: Edenilson Reinoso on 01-03-2024 Anion gap [Moles/Vol] 15.7 mmol/L High 6.0-15.[address] [facility] Comment on above: Performed By: #### U 24 NA, COL T V, CREA24 #### [place] [address] [place] #### PHOS 24HRU, CITRIC UR, U24 CA, URIC 24HRU, OXAL 24HRU, MAG 24HRU #### [facility] , Sodium [Moles/volume] in Ser um or PlasmaOrdered By: Edenilson Reinoso on 01-03-2024 Sodium [Moles/Vol] 138 mmol/L Normal 136-145 [facility] Comment on above: Performed By: #### U 24 NA, COL T V, CREA24 #### [facility] [address] [place] [address] #### PHOS 24HRU, CITRIC UR, U24 CA, URIC 24HRU, OXAL 24HRU, MAG 24HRU #### [facility] , Specific gravity Auto test s trip (U) [Rel density]Ordered By: Edenilson Reinoso on 01-03-2024 Specific gravity (U) [Rel density] 1.034 1.001-1.03 0 [facility] Squamous epithelial cells de tection in urine sediment by light microscopyOrdered By: Edenilson Reinoso on 01-03-2024 Epithelial cells.squamous LM Ql (Urine sed) 0-1 [HPF] 0-2 [facility] Troponin I High Sensitivityo n 01-03-2024 Troponin I High Sensitivity 7.2 pg/mL Normal 0.0-20.0 [facility] Comment on above: Result Comment: PERF ORMED BY: [place] [address] PATHOLOGIST ALARM MECHANISM ADJUSTER OLMAN ALBARRAN M.D. Performed By: #### U 24 NA, COL T V, CREA24 #### [address] #### PHOS 24HRU, CITRIC UR, U24 CA, URIC 24HRU, OXAL 24HRU, MAG 24HRU #### [facility] , Troponin I.cardiac [Mass/vol ume] in Serum or Plasma by Detection limit <= 0.01 ng/Ordered By: Edenilson Reinoso on 01-03-2024 Troponin I.cardiac DL <= 0.01 ng/mL [Mass/Vol] 7.2 pg/mL 0.0-20.0 [facility] Urea nitrogen [Mass/volume] in Serum or PlasmaOrdered By: Edenilson Reinoso on 01-03-2024 Urea nitrogen [Mass/Vol] 21 mg/dL Normal 7-25 [facility] Comment on above: Performed By: #### U 24 NA, COL T V, CREA24 #### [facility] [address] [place] [address] [place] #### PHOS 24HRU, CITRIC UR, U24 CA, URIC 24HRU, OXAL 24HRU, MAG 24HRU #### [facility] , Urine bacteria detection by automated methodOrdered By: Edenilson Reinoso on 01-03-2024 Bacteria Auto Ql (U) None seen None Seen [facility] Urine clarity by refractomet ry automatedOrdered By: Edenilson Reinoso on 01-03-2024 Clarity Refractometry automated (U) Cloudy Clear [facility] Urine glucose measurement by automated test strip (mass/volume)Ordered By: Edenilson Reinoso on 01-03-2024 Glucose Auto test strip (U) [Mass/Vol] Normal mg/dL Normal [facility] Urine hemoglobin detection b y automated test stripOrdered By: Edenilson Reinoso on 01-03-2024 Hemoglobin Auto test strip Ql (U) Negative Negative [facility] Urine leukocyte esterase det ection by automated test stripOrdered By: Edenilson Reinoso on 01-03-2024 Leukocyte esterase Auto test strip Ql (U) Negative Negative [facility] Urine pH measurement by auto mated test stripOrdered By: Edenilson Reinoso on 01-03-2024 pH (U) 5.0 [pH] Normal 5.0-9.0 [facility] Comment on above: Order Comment: URINE COLLECTION TIME (HRS): 24 URINE VOLUME (MILLILTERS): 2960 Performed By: #### U 24 NA, COL T V, CREA24 #### [facility] [address] [place] [address] [place] #### PHOS 24HRU, CITRIC UR, U24 CA, URIC 24HRU, OXAL 24HRU, MAG 24HRU #### [facility] , Urobilinogen Auto test strip (U) [Mass/Vol]Ordered By: Edenilson Reinoso on 01-03-2024 Urobilinogen (U) [Mass/Vol] Normal mg/dL Normal [facility] ECG 12 lead ECGon 01-02-2024 ECG 12 lead ECG [address] [address] Electrocardiograph Report Signed Patient: Valentin Torre MR#: [id number] [birth year] : 1955 Acct:[id number] Age/Sex: 68 / M ADM Date: 01/02/24 Loc: ER Room: Type: [facility] ER Attending Dr: Ordering Provider: Edenilson [...] in Anterior leads Confirmed by Bayron Tim ([id number]) on 01/06/2024 6:22:05 PM Referred By: Electronically Signed By:Bayron Tim Transcribed By: MUS Signed By Bayron Tim MD 01/06/24 1822 Normal [facility] XR cerv spine AP/LAT/FLX/EXT on 12-30-2023 XR cerv spine AP/LAT/FLX/EXT [facility] Main [address] [address] XRay Report Signed Patient: Valentin Torre MR#: [id number] [birth year] : 1955 Acct:[id number] Age/Sex: 68 / M ADM Date: 12/30/23 Loc: XD Room: Type: [facility] CLI Attending Dr: Мария DUMONTC Copies to: WILLOW Barba Ordering Provider: WILLOW [...] Audie Cortes M.D.12/30/2023 3:38 PM Dictation Location: [place] [address] Transcribed By: [facility] 12/30/23 1538 Dictated By: Audie Cortes DO 12/30/23 1535 Signed By: 12/30/23 1538 Normal [facility] XR lumbar spine 6V w bending on 12-30-2023 XR lumbar spine 6V w bending [facility] Main [place] [address] [place] [address] XRay Report Signed Patient: Valentin Torre MR#: [id number] [birth year] : 1955 Acct:[id number] Age/Sex: 68 / M ADM Date: 12/30/23 Loc: XD Room: Type: [facility] Attending Dr: Мария DAUGHERTY Copies to: WILLOW [...] Audie Cortes M.D.12/30/2023 3:44 PM Dictation Location: [place] [address] Transcribed By: [facility] 12/30/23 1544 Dictated By: Audie Cortes DO 12/30/23 1540 Signed By: 12/30/23 154 Normal [facility] XR lumbar spine 2-3V*on 11-22 XR lumbar spine 2-3V* [facility] Main [place] [address] [place] [address] XRay Report Signed Patient: Valentin Torre MR#: [id number] [birth year] : 1955 Acct:[id number] Age/Sex: 68 / M ADM Date: 12/15/23 Loc: XD Room: Type: [facility] Attending Dr: Sascha Sutton DO Copies to: [...] Audie Cortes M.D.12/15/2023 2:24 PM Dictation Location: [place] [address] Transcribed By: [facility] 12/15/23 1424 Dictated By: Audie Cortes DO 12/15/23 1402 Signed By: 12/15/23 142 Normal [facility] COMPREHENSIVE METABOLIC PANE Vivek 12-14-2023 Albumin [Mass/Vol] 4.5 g/dL Normal 3.2-5.3 [facility] Comment on above: Performed By: #### Dannie MALDONADO, 94534-9 #### [facility] ([id number]) [address], [address] [place] [address] ALP [Catalytic activity/Vol] 83 U/L Normal 39-130 [facility] Comment on above: Performed By: #### Dannie MALDONADO 20467-7 #### [facility] ([id number]) [address], [address] [place] [address] ALT [Catalytic activity/Vol] 25 U/L Normal 0-40 [facility] Comment on above: Performed By: #### Dannie MALDONADO, 15985-6 #### [facility] ([id number]) [address], [address] [place] [address] Anion gap [Moles/Vol] 11 mmol/L Normal 5-15 [facility] Comment on above: Performed By: #### Dannie MALDONADO, 83946-8 #### [facility] ([id number]) [address], [address] [place] [address] AST [Catalytic activity/Vol] 18 U/L Normal 0-41 [facility] Comment on above: Performed By: #### Dannie MALDONADO, 73325-0 #### [facility] ([id number]) [address], [address] [place] [address] Bilirubin [Mass/Vol] 0.8 mg/dL Normal 0.3-1.2 [facility] Comment on above: Performed By: #### Dannie MALDONADO 47284-0 #### [facility] ([id number]) [address], [address] [place] [address] Calcium [Mass/Vol] 9.1 mg/dL Normal 8.5-10.5 [facility] Comment on above: Performed By: #### Dannie MALDONADO 72696-4 #### [facility] ([id number]) [address], [address] [place] [address] Chloride [Moles/Vol] 105 mmol/L Normal 98-109 [facility] Comment on above: Performed By: #### C ERICA, 39845-3 #### [facility] ([id number]) [address], [address] [place] [address] CO2 [Moles/Vol] 23 mmol/L Normal 22-32 [facility] Comment on above: Performed By: #### C ERICA, 81459-8 #### [facility] ([id number]) [address], [address] [place] [address] Creatinine [Mass/Vol] 0.89 mg/dL Normal 0.60-1.30 [facility] Comment on above: Result Comment: METH OD TRACEABLE TO IDMS STANDARD Performed By: #### C ERICA, 80425-5 #### [facility] ([id number]) [address], [address] [place] [address] eGFR (CKD-EPI) NON-RACE DEPENDENT >90 Normal >59 [facility] Comment on above: Result Comment: Reported eGFR is based on the CKD-EPI 2020 equation that does not use a race coefficient. Performed By: #### C ERICA, 70982-1 #### [facility] ([id number]) [address], [address] [place] [address] Glucose [Mass/Vol] 96 mg/dL Normal 65-99 [facility] Comment on above: Performed By: #### Dannie MALDONADO, 79241-0 #### [facility] ([id number]) [address], [address] [place] [address] Potassium [Moles/Vol] 4.0 mmol/L Normal 3.5-5.0 [facility] Comment on above: Performed By: #### Dannie MALDONADO, 69892-0 #### [facility] ([id number]) [address], [address] [place] [address] Protein [Mass/Vol] 7.1 g/dL Normal 6.0-8.0 [facility] Comment on above: Performed By: #### Dannie MALDONADO, 22673-5 #### [facility] ([id number]) [address], [address] [place] [address] Sodium [Moles/Vol] 139 mmol/L Normal 134-146 [facility] Comment on above: Performed By: #### Dannie MALDONADO, 90349-6 #### [facility] ([id number]) [address], [address] [place] [address] Urea nitrogen [Mass/Vol] 25 mg/dL Normal 5-27 [facility] Comment on above: Performed By: #### Dannie MALDONADO, 74059-7 #### [facility] ([id number]) [address], [address] [place] [address] Comprehensive metabolic pane vivek 12-14-2023 Albumin [Mass/Vol] 4.5 g/dL 3.2 - 5.3 g/dL [facility] ALP [Catalytic activity/Vol] 83 U/L 39 - 130 U/L [facility] ALT No additional P-5'-P [Catalytic activity/Vol] 25 U/L 0 - 40 U/L [facility] Anion gap [Moles/Vol] 11 mmol/L 5 - 15 mmol/L [facility] AST [Catalytic activity/Vol] 18 U/L 0 - 41 U/L [facility] Bilirubin [Mass/Vol] 0.8 mg/dL 0.3 - 1 .2 mg/dL [facility] Calcium [Mass/Vol] 9.1 mg/dL 8.5 - 10. 5 mg/dL [facility] Chloride [Moles/Vol] 105 mmol/L 98 - 10 9 mmol/L [facility] CO2 [Moles/Vol] 23 mmol/L 22 - 32 mmol/L [facility] Creatinine [Mass/Vol] 0.89 mg/dL 0.60 - 1.30 mg/dL [facility] Comment on above: METHOD TRACEABLE TO [facility] STANDARD eGFR (CKD-EPI)non-race dependent - PINF [facility] Comment on above: Reported eGFR is based on the CKD-EPI 2020 equation that does not use a race coefficient. Glucose [Mass/Vol] 96 mg/dL 65 - 99 mg/dL [facility] Potassium [Moles/Vol] 4.0 mmol/L 3.5 - 5.0 mmol/L [facility] Protein [Mass/Vol] 7.1 g/dL 6.0 - 8.0 g/dL [facility] Sodium [Moles/Vol] 139 mmol/L 134 - 146 mmol/L [facility] Urea nitrogen [Mass/Vol] 25 mg/dL 5 - 27 mg/dL [facility] Lipid 1996 panelon 4 Cholesterol [Mass/Vol] 124 mg/dL Low 150 - 200 mg/dL [facility] Cholesterol in HDL [Mass/Vol] 46 mg/dL 39 - PINF mg/dL [facility] Comment on above: HDL <40 mg/dL - High Risk HDL > or = 40mg/dL- Desirable HDL >60 mg/dL - Negative Risk Cholesterol in LDL [Mass/Vol] 57 mg/dL NINF - 130 mg/dL [facility] Comment on above: LDL <100 mg/dL - Desirable LDL >160 mg/dL - High Risk Cholesterol in VLDL [Mass/Vol] 21 mg/dL 0 - 30 mg/dL [facility] Cholesterol.total/Chol esterol in HDL [Mass ratio] 2.7 {ratio} 1.0 - 5.0 [facility] Interpretation and review of laboratory results Abnormal [facility] Triglyceride [Mass/Vol] 103 mg/dL 27 - 150 mg/dL [facility] Cholesterol [Mass/Vol] 124 mg/dL Low 150-200 [facility] Comment on above: Performed By: #### Dannie MALDONADO, 41225-3 #### [facility] ([id number]) [address], [address] [place] [address] Cholesterol in HDL [Mass/Vol] 46 mg/dL Normal >39 [facility] Comment on above: Result Comment: HDL <40 mg/dL - High Risk HDL > or = 40mg/dL- Desirable HDL >60 mg/dL - Negative Risk Performed By: #### Dannie MALDONADO, 93483-5 #### [facility] ([id number]) [address], [address] [place] [address] Cholesterol in LDL [Mass/Vol] 57 mg/dL Normal <130 [facility] Comment on above: Result Comment: LDL <100 mg/dL - Desirable LDL >160 mg/dL - High Risk Performed By: #### Dannie MALDONADO, 28480-8 #### [facility] ([id number]) [address], [address] [place] [address] Cholesterol in VLDL [Mass/Vol] 21 mg/dL Normal 0-30 [facility] Comment on above: Performed By: #### Dannie MALDONADO, 87030-2 #### [facility] ([id number]) [address], [address] [place] [address] CHOLESTEROL:HDL 2.7 Normal 1.0-5.0 [facility] Comment on above: Performed By: #### Dannie MALDONADO, 83192-9 #### [facility] ([id number]) [address], [address] [place] [address] Triglyceride [Mass/Vol] 103 mg/dL Normal 27-150 [facility] Comment on above: Performed By: #### C , 31180-6 #### [facility] ([id number]) [address] [facility] [address], [address] [place] [address] No Panel Informationon 12-14 [facility] Alanine aminotransferase [En zymatic activity/volume] in Serum or PlasmaOrdered By: Romel Davis on 12-08-2023 ALT [Catalytic activity/Vol] 31 U/L Normal 7-52 [facility] Comment on above: Performed By: #### U 24 NA, COL T V, CREA24 #### [address] #### PHOS 24HRU, CITRIC UR, U24 CA, URIC 24HRU, OXAL 24HRU, MAG 24HRU #### [facility] , Albumin [Mass/volume] in Ser um or Plasma by Bromocresol green (BCG) dye binding methoOrdered By: Romel Davis on 12-08-2023 Albumin BCG dye [Mass/Vol] 4.3 g/dL 3.5-5.7 [facility] Alkaline phosphatase [Enzyma tic activity/volume] in Serum or PlasmaOrdered By: Romel Davis on 12-08-2023 ALP [Catalytic activity/Vol] 80 U/L Normal 34-104 [facility] Comment on above: Result Comment: PERF ORMED BY: [address] [place] [address] PATHOLOGIST ALARM MECHANISM ADJUSTER OLMAN ALBARRAN M.D. Performed By: #### U 24 NA, COL T V, CREA24 #### [facility] [address] [place] [address] [place] #### PHOS 24HRU, CITRIC UR, U24 CA, URIC 24HRU, OXAL 24HRU, MAG 24HRU #### [facility] , Aspartate aminotransferase [ Enzymatic activity/volume] in Serum or PlasmaOrdered By: Romel Davis on 12-08-2023 AST [Catalytic activity/Vol] 19 U/L Normal 13-39 [facility] Comment on above: Performed By: #### U 24 NA, COL T V, CREA24 #### [facility] [address] [place] [address] [place] #### PHOS 24HRU, CITRIC UR, U24 CA, URIC 24HRU, OXAL 24HRU, MAG 24HRU #### [facility] , Automated basophil %Ordered By: Romel Davis on 12-08-2023 Basophils/100 WBC (Bld) 0.5 % Normal . [facility] Comment on above: Performed By: #### U 24 NA, COL T V, CREA24 #### [facility] [address] [place] [address] #### PHOS 24HRU, CITRIC UR, U24 CA, URIC 24HRU, OXAL 24HRU, MAG 24HRU #### [facility] , Automated basophil countOrde red By: Romel Davis on 12-08-2023 Basophils (Bld) [#/Vol] 0.0 10*3/uL Normal 0.0-0.2 [facility] Comment on above: Performed By: #### U 24 NA, COL T V, CREA24 #### [address] #### PHOS 24HRU, CITRIC UR, U24 CA, URIC 24HRU, OXAL 24HRU, MAG 24HRU #### [facility] , Automated blood monocyte cou ntOrdered By: Romel Davis on 12-08-2023 Monocytes (Bld) [#/Vol] 0.9 10*3/uL High 0.0-0.8 [facility] Comment on above: Performed By: #### U 24 NA, COL T V, CREA24 #### [place] [address] [place] #### PHOS 24HRU, CITRIC UR, U24 CA, URIC 24HRU, OXAL 24HRU, MAG 24HRU #### [facility] , Automated eosinophil %Ordere d By: Romel Davis on 12-08-2023 Eosinophils/100 WBC (Bld) 1.2 % Normal . [facility] Comment on above: Performed By: #### U 24 NA, COL T V, CREA24 #### [facility] [address] [place] [address] [place] #### PHOS 24HRU, CITRIC UR, U24 CA, URIC 24HRU, OXAL 24HRU, MAG 24HRU #### [facility] , Automated eosinophil countOr dered By: Romel Davis on 12-08-2023 Eosinophils (Bld) [#/Vol] 0.1 10*3/uL Normal 0.0-0.45 [facility] Comment on above: Performed By: #### U 24 NA, COL T V, CREA24 #### [facility] [address] [place] [address] [place] #### PHOS 24HRU, CITRIC UR, U24 CA, URIC 24HRU, OXAL 24HRU, MAG 24HRU #### [facility] , Automated erythrocytes count in urine sediment (number/area)Ordered By: Romel Davis on 12-08-2023 RBC Auto (Urine sed) [#/Area] 1-2 [HPF] 0-4 [facility] Automated leukocytes count i n urine sediment (number/area)Ordered By: Romel Davis on 12-08-2023 WBC Auto (Urine sed) [#/Area] 0-1 [HPF] 0-4 [facility] Automated monocyte %Ordered By: Romel Davis on 12-08-2023 Monocytes/100 WBC (Bld) 14.0 % Normal . [facility] Comment on above: Performed By: #### U 24 NA, COL T V, CREA24 #### [facility] [address] [place] [address] [place] #### PHOS 24HRU, CITRIC UR, U24 CA, URIC 24HRU, OXAL 24HRU, MAG 24HRU #### [facility] , Automated neutrophil %Ordere d By: Romel Davis on 12-08-2023 Neutrophils/100 WBC (Bld) 69.2 % Normal . [facility] Comment on above: Performed By: #### U 24 NA, COL T V, CREA24 #### [place] [address] [place] #### PHOS 24HRU, CITRIC UR, U24 CA, URIC 24HRU, OXAL 24HRU, MAG 24HRU #### [facility] , Bilirubin Auto test strip Ql (U)Ordered By: Romel Davis on 12-08-2023 Bilirubin Ql (U) Negative Negative [facility] Bilirubin.total [Mass/volume ] in Serum or PlasmaOrdered By: Romel Mendezrow on 12-08-2023 Bilirubin [Mass/Vol] 0.6 mg/dL Normal 0.3-1.0 [facility] Comment on above: Performed By: #### U 24 NA, COL T V, CREA24 #### [address] #### PHOS 24HRU, CITRIC UR, U24 CA, URIC 24HRU, OXAL 24HRU, MAG 24HRU #### [facility] , Calcium [Mass/volume] in Ser um or PlasmaOrdered By: Romel Mendezrow on 12-08-2023 Calcium [Mass/Vol] 9.4 mg/dL Normal 8.6-10.3 [facility] Comment on above: Performed By: #### U 24 NA, COL T V, CREA24 #### [facility] [address] [place] [address] [place] #### PHOS 24HRU, CITRIC UR, U24 CA, URIC 24HRU, OXAL 24HRU, MAG 24HRU #### [facility] , Carbon dioxide, total [Moles /volume] in Serum or PlasmaOrdered By: Romel Mendezrow on 12-08-2023 CO2 [Moles/Vol] 25.7 mmol/L Normal 21.0-31.0 [facility] Comment on above: Performed By: #### U 24 NA, COL T V, CREA24 #### [place] [address] [place] #### PHOS 24HRU, CITRIC UR, U24 CA, URIC 24HRU, OXAL 24HRU, MAG 24HRU #### [facility] , Chloride [Moles/volume] in S ace or PlasmaOrdered By: Romel Davis on 12-08-2023 Chloride [Moles/Vol] 105 mmol/L Normal 98-107 [facility] Comment on above: Performed By: #### U 24 NA, COL T V, CREA24 #### [facility] [address] [place] [address] #### PHOS 24HRU, CITRIC UR, U24 CA, URIC 24HRU, OXAL 24HRU, MAG 24HRU #### [facility] , Complement C3on 12-08-2023 Complement C3 122 mg/dL Normal 82-167 [facility] Comment on above: Result Comment: Perf ormed at: - [facility] [address] [id number] [employer]: Richy Ardon PhD, Phone: [phone] Performed By: #### U 24 NA, COL T V, CREA24 #### [address] #### PHOS 24HRU, CITRIC UR, U24 CA, URIC 24HRU, OXAL 24HRU, MAG 24HRU #### [facility] , Complement C4on 12-08-2023 Complement C4 14 mg/dL Normal 12-38 [facility] Comment on above: Result Comment: PERF ORMED BY: [address] [place] [address] PATHOLOGIST ALARM MECHANISM ADJUSTER OLMAN ALBARRAN M.D. Performed By: #### U 24 NA, COL T V, CREA24 #### [facility] [address] [place] [address] [place] #### PHOS 24HRU, CITRIC UR, U24 CA, URIC 24HRU, OXAL 24HRU, MAG 24HRU #### [facility] , Complement Total (CH50)on Complement Total (CH50) 58 Normal >41 [facility] Comment on above: Result Comment: Age Male [...] out of range values. Performed at: - [facility] [id number] [employer]: Richy Ardon PhD, Phone: [phone] PERFORMED BY: [place] [address] PATHOLOGIST ALARM MECHANISM ADJUSTER OLMAN ALBARRAN M.D. Performed By: #### U 24 NA, COL T V, CREA24 #### [address] #### PHOS 24HRU, CITRIC UR, U24 CA, URIC 24HRU, OXAL 24HRU, MAG 24HRU #### [facility] , Complete Blood Count Auto Di ffon 12-08-2023 Mean Corpuscular HGB Conc 34.5 g/dL Normal 32.5-35.6 [facility] Comment on above: Performed By: #### U 24 NA, COL T V, CREA24 #### [address] #### PHOS 24HRU, CITRIC UR, U24 CA, URIC 24HRU, OXAL 24HRU, MAG 24HRU #### [facility] , NRBC% 0.1 /100{WBC} Normal 0-0.5 [facility] Comment on above: Performed By: #### U 24 NA, COL T V, CREA24 #### [place] [address] [place] #### PHOS 24HRU, CITRIC UR, U24 CA, URIC 24HRU, OXAL 24HRU, MAG 24HRU #### [facility] , Comprehensive Metabolic Pane vivek 12-08-2023 Albumin [Mass/Vol] 4.3 g/dL Normal 3.5-5.7 [facility] Comment on above: Performed By: #### U 24 NA, COL T V, CREA24 #### [place] [address] [place] #### PHOS 24HRU, CITRIC UR, U24 CA, URIC 24HRU, OXAL 24HRU, MAG 24HRU #### [facility] , GFR/1.73 sq M.predicted MDRD (S/P/Bld) [Vol rate/Area] mL/min/{1.73_m2} Normal [facility] Comment on above: Performed By: #### U 24 NA, COL T V, CREA24 #### [place] [address] [place] #### PHOS 24HRU, CITRIC UR, U24 CA, URIC 24HRU, OXAL 24HRU, MAG 24HRU #### [facility] , Creatinine [Mass/volume] in Serum or PlasmaOrdered By: Romel Davis on 12-08-2023 Creatinine [Mass/Vol] 1.00 mg/dL Normal 0.70-1.30 [facility] Comment on above: Performed By: #### U 24 NA, COL T V, CREA24 #### [address] #### PHOS 24HRU, CITRIC UR, U24 CA, URIC 24HRU, OXAL 24HRU, MAG 24HRU #### [facility] , Dipstick and Microscopicon 0 12-08-2023 Bacteria,Urine None Seen Normal None Seen [facility] Comment on above: Order Comment: URINE COLLECTION TIME (HRS): 24 URINE VOLUME (MILLILTERS): 2960 Performed By: #### U 24 NA, COL T V, CREA24 #### [place] [address] [place] #### PHOS 24HRU, CITRIC UR, U24 CA, URIC 24HRU, OXAL 24HRU, MAG 24HRU #### [facility] , Bilirubin,Urine Negative Normal Negative [facility] Comment on above: Order Comment: URINE COLLECTION TIME (HRS): 24 URINE VOLUME (MILLILTERS): 2960 Performed By: #### U 24 NA, COL T V, CREA24 #### [address] #### PHOS 24HRU, CITRIC UR, U24 CA, URIC 24HRU, OXAL 24HRU, MAG 24HRU #### [facility] , Glucose Ql (U) Normal Normal Normal [facility] Comment on above: Order Comment: URINE COLLECTION TIME (HRS): 24 URINE VOLUME (MILLILTERS): 2960 Performed By: #### U 24 NA, COL T V, CREA24 #### [address] #### PHOS 24HRU, CITRIC UR, U24 CA, URIC 24HRU, OXAL 24HRU, MAG 24HRU #### [facility] , Hyaline Casts,Urine 0-8 Normal 0-8 [facility] Comment on above: Order Comment: URINE COLLECTION TIME (HRS): 24 URINE VOLUME (MILLILTERS): 2960 Result Comment: PERF ORMED BY: [place] [address] PATHOLOGIST ALARM MECHANISM ADJUSTER OLMAN ALBARRAN M.D. Performed By: #### U 24 NA, COL T V, CREA24 #### [address] #### PHOS 24HRU, CITRIC UR, U24 CA, URIC 24HRU, OXAL 24HRU, MAG 24HRU #### [facility] , Ketones Ql (U) Negative Normal Negative [facility] Comment on above: Order Comment: URINE COLLECTION TIME (HRS): 24 URINE VOLUME (MILLILTERS): 2960 Performed By: #### U 24 NA, COL T V, CREA24 #### [address] #### PHOS 24HRU, CITRIC UR, U24 CA, URIC 24HRU, OXAL 24HRU, MAG 24HRU #### [facility] , Leukocyte esterase Test strip Ql (U) Negative Normal Negative [facility] Comment on above: Order Comment: URINE COLLECTION TIME (HRS): 24 URINE VOLUME (MILLILTERS): 2960 Performed By: #### U 24 NA, COL T V, CREA24 #### [address] #### PHOS 24HRU, CITRIC UR, U24 CA, URIC 24HRU, OXAL 24HRU, MAG 24HRU #### [facility] , Nitrite,Urine Negative Normal Negative [facility] Comment on above: Order Comment: URINE COLLECTION TIME (HRS): 24 URINE VOLUME (MILLILTERS): 2960 Performed By: #### U 24 NA, COL T V, CREA24 #### [address] #### PHOS 24HRU, CITRIC UR, U24 CA, URIC 24HRU, OXAL 24HRU, MAG 24HRU #### [facility] , Occult Blood,Urine Negative Normal Negative [facility] Comment on above: Order Comment: URINE COLLECTION TIME (HRS): 24 URINE VOLUME (MILLILTERS): 2960 Performed By: #### U 24 NA, COL T V, CREA24 #### [address] #### PHOS 24HRU, CITRIC UR, U24 CA, URIC 24HRU, OXAL 24HRU, MAG 24HRU #### [facility] , Protein,Urine Negative Normal Negative [facility] Comment on above: Order Comment: URINE COLLECTION TIME (HRS): 24 URINE VOLUME (MILLILTERS): 2960 Performed By: #### U 24 NA, COL T V, CREA24 #### [place] [address] [place] #### PHOS 24HRU, CITRIC UR, U24 CA, URIC 24HRU, OXAL 24HRU, MAG 24HRU #### [facility] , RBC,Urine 1-2 Normal 0-4 [facility] Comment on above: Order Comment: URINE COLLECTION TIME (HRS): 24 URINE VOLUME (MILLILTERS): 2960 Performed By: #### U 24 NA, COL T V, CREA24 #### [facility] [address] [place] [address] #### PHOS 24HRU, CITRIC UR, U24 CA, URIC 24HRU, OXAL 24HRU, MAG 24HRU #### [facility] , Specificy [place],Urine 1.025 Normal 1.001-1.03 0 [facility] Comment on above: Order Comment: URINE COLLECTION TIME (HRS): 24 URINE VOLUME (MILLILTERS): 2960 Performed By: #### U 24 NA, COL T V, CREA24 #### [address] #### PHOS 24HRU, CITRIC UR, U24 CA, URIC 24HRU, OXAL 24HRU, MAG 24HRU #### [facility] , Squamous Epithelial Cell,Urine None Seen Normal 0-2 [facility] Comment on above: Order Comment: URINE COLLECTION TIME (HRS): 24 URINE VOLUME (MILLILTERS): 2960 Performed By: #### U 24 NA, COL T V, CREA24 #### [address] #### PHOS 24HRU, CITRIC UR, U24 CA, URIC 24HRU, OXAL 24HRU, MAG 24HRU #### [facility] , Urobilinogen,Urine Normal Normal Normal [facility] Comment on above: Order Comment: URINE COLLECTION TIME (HRS): 24 URINE VOLUME (MILLILTERS): 2960 Performed By: #### U 24 NA, COL T V, CREA24 #### [place] [address] [place] #### PHOS 24HRU, CITRIC UR, U24 CA, URIC 24HRU, OXAL 24HRU, MAG 24HRU #### [facility] , WBC LM.HPF (Urine sed) [#/Area] 0 /[HPF] Normal 0-4 [facility] Comment on above: Order Comment: URINE COLLECTION TIME (HRS): 24 URINE VOLUME (MILLILTERS): 2960 Performed By: #### U 24 NA, COL T V, CREA24 #### [facility] [address] [place] [address] #### PHOS 24HRU, CITRIC UR, U24 CA, URIC 24HRU, OXAL 24HRU, MAG 24HRU #### [facility] , Erythrocyte Sedimentation Ra bruno 12-08-2023 ESR (Bld) [Velocity] 5 mm/h Normal 0-19 [facility] Comment on above: Result Comment: PERF ORMED BY: [place] [address] PATHOLOGIST ALARM MECHANISM ADJUSTER OLMAN ALBARRAN M.D. Performed By: #### U 24 NA, COL T V, CREA24 #### [address] #### PHOS 24HRU, CITRIC UR, U24 CA, URIC 24HRU, OXAL 24HRU, MAG 24HRU #### [facility] , Erythrocyte distribution wid th [Ratio] by Automated countOrdered By: Romel Davis on 12-08-2023 Erythrocyte distribution width (RBC) [Ratio] 14.5 % Normal 12.0-14.8 [facility] Comment on above: Performed By: #### U 24 NA, COL T V, CREA24 #### [address] #### PHOS 24HRU, CITRIC UR, U24 CA, URIC 24HRU, OXAL 24HRU, MAG 24HRU #### [facility] , Erythrocyte sedimentation ra te by Photometric methodOrdered By: Romel Davis on 12-08-2023 ESR Photometric method (Bld) [Velocity] 5 mm/hr 0-19 [facility] Erythrocytes [#/volume] in B lood by Automated countOrdered By: Romel Davis on 12-08-2023 RBC (Bld) [#/Vol] 5.18 10*6/uL Normal 3.90-5.60 [facility] Comment on above: Performed By: #### U 24 NA, COL T V, CREA24 #### [facility] [address] [place] [address] #### PHOS 24HRU, CITRIC UR, U24 CA, URIC 24HRU, OXAL 24HRU, MAG 24HRU #### [facility] , Glucose [Mass/volume] in Ser um or PlasmaOrdered By: Romel Davis on 12-08-2023 Glucose [Mass/Vol] 88 mg/dL Normal 70-100 [facility] Comment on above: ADA recommended refe rence rangeRandom Glucose Reference Range is dependent on time and content of last meal. Glucose of more than 200 mg/dL in a nonstressed, ambulatory subject supports the diagnosis of Diabetes Mellitus. Result Comment: [place] om Glucose Reference Range is dependent on time and content of last meal. Glucose of more than 200 mg/dL in a nonstressed, ambulatory subject supports the diagnosis of Diabetes Mellitus. ADA recommended reference range Performed By: #### U 24 NA, COL T V, CREA24 #### [address] #### PHOS 24HRU, CITRIC UR, U24 CA, URIC 24HRU, OXAL 24HRU, MAG 24HRU #### [facility] , Hematocrit [Volume Fraction] of Blood by Automated countOrdered By: Romel Ryan on 12-08-2023 Hematocrit (Bld) [Volume fraction] 46.1 % Normal 38.8-50.0 [facility] Comment on above: Performed By: #### U 24 NA, COL T V, CREA24 #### [facility] [address] [place] [address] #### PHOS 24HRU, CITRIC UR, U24 CA, URIC 24HRU, OXAL 24HRU, MAG 24HRU #### [facility] , Hemoglobin [Mass/volume] in BloodOrdered By: Romel Ryan on 12-08-2023 Hemoglobin (Bld) [Mass/Vol] 15.9 g/dL Normal 13.0-17.0 [facility] Comment on above: Performed By: #### U 24 NA, COL T V, CREA24 #### [facility] [address] [place] [address] [place] #### PHOS 24HRU, CITRIC UR, U24 CA, URIC 24HRU, OXAL 24HRU, MAG 24HRU #### [facility] , Ketones Auto test strip (U) [Mass/Vol]Ordered By: Romelsera Davis on 12-08-2023 Ketones (U) [Mass/Vol] Negative Negative [facility] - UrinalysisOrder ed By: Romelsera Davis on 12-08-2023 Hyaline casts LM Ql (Urine sed) 0-8 [LPF] 0-8 [facility] Leukocytes [#/volume] correc nat for nucleated erythrocytes in Blood by Automated counOrdered By: Romel Ryan on 12-08-2023 WBC corrected for nucl RBC Auto (Bld) [#/Vol] 6.4 10*3/uL 4.1-10.5 [facility] Leukocytes [#/volume] in Blo od by Automated countOrdered By: Romel Davis on 12-08-2023 WBC (Bld) [#/Vol] 6.4 10*3/uL Normal 4.1-10.5 [facility] Comment on above: Performed By: #### U 24 NA, COL T V, CREA24 #### [facility] [address] [place] [address] [place] #### PHOS 24HRU, CITRIC UR, U24 CA, URIC 24HRU, OXAL 24HRU, MAG 24HRU #### [facility] , Lymphocytes [#/volume] in Bl ood by Automated countOrdered By: Romel Davis on 12-08-2023 Lymphocytes (Bld) [#/Vol] 1.0 10*3/uL Normal 1.00-4.8 [facility] Comment on above: Performed By: #### U 24 NA, COL T V, CREA24 #### [facility] [address] [place] [address] [place] #### PHOS 24HRU, CITRIC UR, U24 CA, URIC 24HRU, OXAL 24HRU, MAG 24HRU #### [facility] , Lymphocytes/100 leukocytes i n Blood by Automated countOrdered By: Romel Ryan on 12-08-2023 Lymphocytes/100 WBC (Bld) 15.1 % Normal . [facility] Comment on above: Performed By: #### U 24 NA, COL T V, CREA24 #### [place] [address] [place] #### PHOS 24HRU, CITRIC UR, U24 CA, URIC 24HRU, OXAL 24HRU, MAG 24HRU #### [facility] , MCH [Entitic mass] by Automa nat countOrdered By: Romelsera Davis on 12-08-2023 MCH (RBC) [Entitic mass] 30.7 pg Normal 27.5-35.2 [facility] Comment on above: Performed By: #### U 24 NA, COL T V, CREA24 #### [address] #### PHOS 24HRU, CITRIC UR, U24 CA, URIC 24HRU, OXAL 24HRU, MAG 24HRU #### [facility] , MCHC Auto (RBC) [Mass/Vol]Or dered By: Romel Davis on 12-08-2023 MCHC (RBC) [Mass/Vol] 34.5 g/dL 32.5-35.6 [facility] MCV [Entitic volume] by Auto mated countOrdered By: Romel Davis on 12-08-2023 MCV (RBC) [Entitic vol] 89.0 fL Normal 83.5-101 [facility] Comment on above: Performed By: #### U 24 NA, COL T V, CREA24 #### [place] [address] [place] #### PHOS 24HRU, CITRIC UR, U24 CA, URIC 24HRU, OXAL 24HRU, MAG 24HRU #### [facility] , Neutrophils [#/volume] in Bl ood by Automated countOrdered By: Romel Davis on 12-08-2023 Neutrophils (Bld) [#/Vol] 4.4 10*3/uL Normal 1.8-7.7 [facility] Comment on above: Performed By: #### U 24 NA, COL T V, CREA24 #### [facility] [address] [place] [address] [place] #### PHOS 24HRU, CITRIC UR, U24 CA, URIC 24HRU, OXAL 24HRU, MAG 24HRU #### [facility] , No Panel InformationOrdered By: Romel Davis on 12-08-2023 Estimated GFR (CKD-EPI) > 60.0 mL/Min [facility] Creatinine Clearance (Chem N/A [facility] Total Complement (CH50) 58 U/mL >41 [facility] Comment on above: Age Male Female 3 [...] determine out of range values.Performed at: - [facility] [id number] Director: Richy Ardon PhD, Phone: [phone] Nucleated erythrocytes [Pres ence] in Blood by Automated countOrdered By: Romel Davis on 12-08-2023 Nucleated RBC Auto Ql (Bld) 0.1 /100{WBC} 0-0.5 [facility] Platelet mean volume [Entiti c volume] in Blood by Automated countOrdered By: Romel Davis on 12-08-2023 Platelet mean volume (Bld) [Entitic vol] 8.7 fL Normal 6.6-10.1 [facility] Comment on above: Performed By: #### U 24 NA, COL T V, CREA2 #### [facility] [address] [place] [address] [place] #### PHOS 24HRU, CITRIC UR, U24 CA, URIC 24HRU, OXAL 24HRU, MAG 24HRU #### [facility] , Platelets [#/volume] in Bloo d by Automated countOrdered By: Romel Mendezrow on 12-08-2023 Platelets (Bld) [#/Vol] 203 10*3/uL Normal 150-450 [facility] Comment on above: Performed By: #### U 24 NA, COL T V, CREA24 #### [facility] [address] [place] [address] [place] #### PHOS 24HRU, CITRIC UR, U24 CA, URIC 24HRU, OXAL 24HRU, MAG 24HRU #### [facility] , Potassium [Moles/volume] in Serum or PlasmaOrdered By: Romel Davis on 12-08-2023 Potassium [Moles/Vol] 4.3 mmol/L Normal 3.5-5.1 [facility] Comment on above: Performed By: #### U 24 NA, COL T V, CREA24 #### [facility] [address] [place] [address] [place] #### PHOS 24HRU, CITRIC UR, U24 CA, URIC 24HRU, OXAL 24HRU, MAG 24HRU #### [facility] , Protein Auto test strip (U) [Mass/Vol]Ordered By: Romel Davis on 12-08-2023 Protein (U) [Mass/Vol] Negative Negative [facility] Protein [Mass/volume] in Ser um or PlasmaOrdered By: Romel Davis on 12-08-2023 Protein [Mass/Vol] 6.3 g/dL Low 6.4-8.9 [facility] Comment on above: Performed By: #### U 24 NA, COL T V, CREA24 #### [facility] [address] [place] [address] [place] #### PHOS 24HRU, CITRIC UR, U24 CA, URIC 24HRU, OXAL 24HRU, MAG 24HRU #### [facility] , Serum globulin measurement b y calculation (mass/volume)Ordered By: Romel Davis on 12-08-2023 Globulin (S) [Mass/Vol] 2.0 g/dL [facility] Comment on above: Performed By: #### U 24 NA, COL T V, CREA24 #### [facility] [address] [place] [address] [place] #### PHOS 24HRU, CITRIC UR, U24 CA, URIC 24HRU, OXAL 24HRU, MAG 24HRU #### [facility] , Serum or plasma albumin/glob ulin mass ratioOrdered By: Romel Davis on 12-08-2023 Albumin/Globulin [Mass ratio] 2.2 {ratio} [facility] Comment on above: Performed By: #### U 24 NA, COL T V, CREA24 #### [facility] [address] [place] [address] #### PHOS 24HRU, CITRIC UR, U24 CA, URIC 24HRU, OXAL 24HRU, MAG 24HRU #### [facility] , Serum or plasma anion gap de terminationOrdered By: Romel Davis on 12-08-2023 Anion gap [Moles/Vol] 10.6 mmol/L Normal 6.0-15.[address] [facility] Comment on above: Performed By: #### U 24 NA, COL T V, CREA24 #### [facility] [address] [place] [address] [place] #### PHOS 24HRU, CITRIC UR, U24 CA, URIC 24HRU, OXAL 24HRU, MAG 24HRU #### [facility] , Serum or plasma complement C 3 measurement (mass/volume)Ordered By: Romel Davis on 12-08-2023 Complement C3 [Mass/Vol] 122 mg/dL 82-167 [facility] Comment on above: Performed at: [place] [id number] Director: Richy Ardon PhD, Phone: [phone] Serum or plasma complement C 4 measurement (mass/volume)Ordered By: Romel Davis on 12-08-2023 Complement C4 [Mass/Vol] 14 mg/dL 12-38 [facility] Sodium [Moles/volume] in Ser um or PlasmaOrdered By: Romel Davis on 12-08-2023 Sodium [Moles/Vol] 137 mmol/L Normal 136-145 [facility] Comment on above: Performed By: #### U 24 NA, COL T V, CREA24 #### [facility] [address] [place] [address] [place] #### PHOS 24HRU, CITRIC UR, U24 CA, URIC 24HRU, OXAL 24HRU, MAG 24HRU #### [facility] , Squamous epithelial cells de tection in urine sediment by light microscopyOrdered By: Romel Davis on 12-08-2023 Epithelial cells.squamous LM Ql (Urine sed) None seen [HPF] 0-2 [facility] Urea nitrogen [Mass/volume] in Serum or PlasmaOrdered By: Romel Davis on 12-08-2023 Urea nitrogen [Mass/Vol] 27 mg/dL High 7-25 [facility] Comment on above: Performed By: #### U 24 NA, COL T V, CREA24 #### [facility] [address] [place] [address] [place] #### PHOS 24HRU, CITRIC UR, U24 CA, URIC 24HRU, OXAL 24HRU, MAG 24HRU #### [facility] , Urine appearanceOrdered By: Romel Davis on 12-08-2023 Appearance (U) Clear Normal Clear [facility] Comment on above: Order Comment: URINE COLLECTION TIME (HRS): 24 URINE VOLUME (MILLILTERS): 2960 Performed By: #### U 24 NA, COL T V, CREA24 #### [facility] [address] [place] [address] [place] #### PHOS 24HRU, CITRIC UR, U24 CA, URIC 24HRU, OXAL 24HRU, MAG 24HRU #### [facility] , Urine bacteria detection by automated methodOrdered By: Romel Davis on 12-08-2023 Bacteria Auto Ql (U) None seen None Seen [facility] Urine colorOrdered By: Manuel Davis on 12-08-2023 Color (U) Yellow Normal Yellow [facility] Comment on above: Order Comment: URINE COLLECTION TIME (HRS): 24 URINE VOLUME (MILLILTERS): 2960 Performed By: #### U 24 NA, COL T V, CREA24 #### [facility] [address] [place] [address] #### PHOS 24HRU, CITRIC UR, U24 CA, URIC 24HRU, OXAL 24HRU, MAG 24HRU #### [facility] , Urine glucose measurement by automated test strip (mass/volume)Ordered By: Romel Davis on 12-08-2023 Glucose Auto test strip (U) [Mass/Vol] Normal mg/dL Normal [facility] Urine hemoglobin detection b y automated test stripOrdered By: Romel Davis on 12-08-2023 Hemoglobin Auto test strip Ql (U) Negative Negative [facility] Urine leukocyte esterase det ection by automated test stripOrdered By: Romel Davis on 12-08-2023 Leukocyte esterase Auto test strip Ql (U) Negative Negative [facility] Urine nitrite detection by a utomated test stripOrdered By: Romel Davis on 12-08-2023 Nitrite Auto test strip Ql (U) Negative Negative [facility] Urine pH measurement by auto mated test stripOrdered By: Romel Davis on 12-08-2023 pH (U) 7.0 [pH] Normal 5.0-9.0 [facility] Comment on above: Order Comment: URINE COLLECTION TIME (HRS): 24 URINE VOLUME (MILLILTERS): 2960 Performed By: #### U 24 NA, COL T V, CREA24 #### [facility] [address] [place] [address] #### PHOS 24HRU, CITRIC UR, U24 CA, URIC 24HRU, OXAL 24HRU, MAG 24HRU #### [facility] , Urobilinogen Auto test strip (U) [Mass/Vol]Ordered By: Romel Davis on 12-08-2023 Urobilinogen (U) [Mass/Vol] Normal mg/dL Normal [facility] pH Auto test strip (U)Ordere d By: Romel Davis on 12-08-2023 pH (U) 1.025 [pH] 1.001-1.03 0 [facility] Lab Reportson 10-21-2023 Lab Reports [id number] Normal [facility] Carbon dioxide, total [Moles /volume] in Serum or PlasmaOrdered By: Zac Muniz on 10-20-2023 CO2 [Moles/Vol] 23.8 mmol/L Normal 21.0-31.0 [facility] Comment on above: Performed By: #### U 24 NA, COL T V, CREA24 #### [facility] [address] [place] [address] #### PHOS 24HRU, CITRIC UR, U24 CA, URIC 24HRU, OXAL 24HRU, MAG 24HRU #### [facility] , Chloride [Moles/volume] in S ace or PlasmaOrdered By: Zac Muniz on 10-20-2023 Chloride [Moles/Vol] 107 mmol/L Normal 98-107 [facility] Comment on above: Performed By: #### U 24 NA, COL T V, CREA24 #### [facility] [address] [place] [address] #### PHOS 24HRU, CITRIC UR, U24 CA, URIC 24HRU, OXAL 24HRU, MAG 24HRU #### [facility] , Potassium [Moles/volume] in Serum or PlasmaOrdered By: Zac Muniz on 10-20-2023 Potassium [Moles/Vol] 4.1 mmol/L Normal 3.5-5.1 [facility] Comment on above: Performed By: #### U 24 NA, COL T V, CREA24 #### [facility] [address] [place] [address] [place] #### PHOS 24HRU, CITRIC UR, U24 CA, URIC 24HRU, OXAL 24HRU, MAG 24HRU #### [facility] , Serum or plasma anion gap de terminationOrdered By: Zac Muniz on 10-20-2023 Anion gap [Moles/Vol] 12.3 mmol/L Normal 6.0-15.[address] [facility] Comment on above: Result Comment: PERF ORMED BY: [place] [address] PATHOLOGIST ALARM MECHANISM ADJUSTER OLMAN ALBARRAN M.D. Performed By: #### U 24 NA, COL T V, CREA24 #### [address] #### PHOS 24HRU, CITRIC UR, U24 CA, URIC 24HRU, OXAL 24HRU, MAG 24HRU #### [facility] , Sodium [Moles/volume] in Ser um or PlasmaOrdered By: Zac Muniz on 10-20-2023 Sodium [Moles/Vol] 139 mmol/L Normal 136-145 [facility] Comment on above: Performed By: #### U 24 NA, COL T V, CREA24 #### [facility] [address] [place] [address] #### PHOS 24HRU, CITRIC UR, U24 CA, URIC 24HRU, OXAL 24HRU, MAG 24HRU #### [facility] , Ambulatory Visit Summaryon 1 Ambulatory Visit Summary VALENTIN TORRE :1955 Visit Date:09/19/2023 Ambulatory Visit Instructions Your Diagnosis Kidney stones History of kidney stones Tests Performed Urnls Dip Stick Auto w/o Microscopy POC 46031 XR Abdomen 1 View -- Results Pending [...] Where: [facility] [address] , [place] [address]- [phone] Medications What How Much When Instructions Unchanged [...] Urnls Dip Stick Auto w/o Microscopy POC 10599 (09/19/2023) Bilirubin Urine Dipstick - Negative Blood Urine Dipstick - Negative Glucose Urine Dipstick - Negative Ketones Urine Dipstick - Negative Leukocytes Urine Dipstick - Negative Nitrite Urine Dipstick - Negative Protein Urine Dipstick - Negative Specific [place] Urine Dipstick - 1.015 Urine Appearance Urine [...] You m (more content not included)... Normal [facility] Patient Educationon 09-19-20 Patient Education Nephrology [...] ? 8 oz (237 mL) of milk, kuhjnch-cfhxfiiohdas-aecto milk, and calcium-fortifiedfruit juice. Calcium-fortified means that [...] Spinach (cooked), rhubarb, beets, sweet potatoes, and Bahraini chard. ? Peanuts. ? Potato chips, irish fries, and baked potatoes with skin on. ? Nuts and nut products. ? Chocolate. ? If you regularly take a diuretic medicine, make sure to eat at least 1 or 2 servings of fruits or vegetables that are high in potassium each day. These include: ? Avocado. ? Banana. ? Delta, prune, carrot, or tomato juice. ? Baked [...] fish oil, or vitamin B6. ? Take ukzb-hqr-nmlwcwo and prescription medicines only as told by your health care provider. These include supplements. What foods should I limit? Limit your in (more content not included)... Normal [facility] Urology Office/Clinic Noteon 09-19-2023 Urology Office/Clinic Note Chief Complaint 4m Metabolic Work Up HPI Staff 68 yo male here for 4 month f/u with metabolic workup. Previous Dx: ureteral stone with hydro, kidney stones, hx of kidney stones, gross hematuria. Stone analysis 05/18/23 - 100% uric acid. [place] [facility] [place]. 24hr urine [...] - 100% uric acid. [place] [facility] [place] two [place] at R mid-upper [...] acknowledges understanding. -Begin Effer-K. Rx sent to [facility]. -Electrolyte panel in 1 month 2. History of kidney stones (Z87.442: Personal history of urinary calculi) Pt has a hx of kidney stones but has always been able to pass them on is own. Three episodes in his lifetime. Recently passed stones on 05/15/23. Follow-up With When Contact Information FLAVIO ONEAL, Zac De Oliveira, URL [facility] [address], [place] [address] [phone] Additional Instructions: 6 mos w/ KUB Patient Education Dietary Guidelines to Help Prevent Kidney Stones IAdela, personally scribed for Dr. Muniz on 09/19/2023 10:30:16. . Documentation recorded by the scribeAdela, accurately reflects the services(s) I performed and [...] Substance Abuse, (more content not included)... Normal [facility] Comment on above: Result Comment: Elec tronically Signed By: Zac MUNIZ MD\.br\Date and Time Signed: 09/19/23 10:31 EDT\.br\Electronically Co-Signed By: Adela Frias\.br\Date and Time Co-Signed: 09/19/23 10:30 EDT XR hip RT min 2V(w/wo pelvis )*on 09-12-2023 XR hip RT min 2V(w/wo pelvis)* [facility] [place] [address] [place] [address] XRay Report Signed Patient: Valentin Torre MR#: [id number] 29 : 1955 Acct:[id number] Age/Sex: 68 / M ADM Date: 09/12/23 Loc: XD Room: Type: [facility] CLI Attending Dr: Romel Davis MD Copies to: [...] Audie Cortes M.D.09/12/2023 11:57 AM Dictation Location: [place] [address] Transcribed By: [facility] 09/12/23 1157 Dictated By: Audie Cortes DO 09/12/23 1142 Signed By: 09/12/23 1157 Normal [facility] Alanine aminotransferase [En zymatic activity/volume] in Serum or PlasmaOrdered By: Romel Davis on 09-05-2023 ALT [Catalytic activity/Vol] 29 U/L Normal 7-52 [facility] Comment on above: Performed By: #### U 24 NA, COL T V, CREA24 #### [address] #### PHOS 24HRU, CITRIC UR, U24 CA, URIC 24HRU, OXAL 24HRU, MAG 24HRU #### [facility] , Albumin [Mass/volume] in Ser um or Plasma by Bromocresol green (BCG) dye binding methoOrdered By: Romel Davis on 09-05-2023 Albumin BCG dye [Mass/Vol] 4.2 g/dL 3.5-5.7 [facility] Alkaline phosphatase [Enzyma tic activity/volume] in Serum or PlasmaOrdered By: Romel Davis on 09-05-2023 ALP [Catalytic activity/Vol] 83 U/L Normal 34-104 [facility] Comment on above: Result Comment: PERF ORMED BY: [place] [address] PATHOLOGIST ALARM MECHANISM ADJUSTER OLMAN ALBARRAN M.D. Performed By: #### U 24 NA, COL T V, CREA24 #### [facility] [address] [place] [address] #### PHOS 24HRU, CITRIC UR, U24 CA, URIC 24HRU, OXAL 24HRU, MAG 24HRU #### [facility] , Aspartate aminotransferase [ Enzymatic activity/volume] in Serum or PlasmaOrdered By: Romel Davis on 09-05-2023 AST [Catalytic activity/Vol] 19 U/L Normal 13-39 [facility] Comment on above: Performed By: #### U 24 NA, COL T V, CREA24 #### [facility] [address] [place] [address] #### PHOS 24HRU, CITRIC UR, U24 CA, URIC 24HRU, OXAL 24HRU, MAG 24HRU #### [facility] , Automated basophil %Ordered By: Romel Davis on 09-05-2023 Basophils/100 WBC (Bld) 0.6 % Normal . [facility] Comment on above: Performed By: #### U 24 NA, COL T V, CREA24 #### [facility] [address] [place] [address] #### PHOS 24HRU, CITRIC UR, U24 CA, URIC 24HRU, OXAL 24HRU, MAG 24HRU #### [facility] , Automated basophil countOrde red By: Romel Davis on 09-05-2023 Basophils (Bld) [#/Vol] 0.0 10*3/uL Normal 0.0-0.2 [facility] Comment on above: Performed By: #### U 24 NA, COL T V, CREA24 #### [facility] [address] [place] [address] [place] #### PHOS 24HRU, CITRIC UR, U24 CA, URIC 24HRU, OXAL 24HRU, MAG 24HRU #### [facility] , Automated blood monocyte cou ntOrdered By: Romel Davis on 09-05-2023 Monocytes (Bld) [#/Vol] 0.6 10*3/uL Normal 0.0-0.8 [facility] Comment on above: Performed By: #### U 24 NA, COL T V, CREA24 #### [facility] [address] [place] [address] [place] #### PHOS 24HRU, CITRIC UR, U24 CA, URIC 24HRU, OXAL 24HRU, MAG 24HRU #### [facility] , Automated eosinophil %Ordere d By: Romel Davis on 09-05-2023 Eosinophils/100 WBC (Bld) 0.9 % Normal . [facility] Comment on above: Performed By: #### U 24 NA, COL T V, CREA24 #### [facility] [address] [place] [address] [place] #### PHOS 24HRU, CITRIC UR, U24 CA, URIC 24HRU, OXAL 24HRU, MAG 24HRU #### [facility] , Automated eosinophil countOr dered By: Romel Davis on 09-05-2023 Eosinophils (Bld) [#/Vol] 0.1 10*3/uL Normal 0.0-0.45 [facility] Comment on above: Performed By: #### U 24 NA, COL T V, CREA24 #### [facility] [address] [place] [address] #### PHOS 24HRU, CITRIC UR, U24 CA, URIC 24HRU, OXAL 24HRU, MAG 24HRU #### [facility] , Automated erythrocytes count in urine sediment (number/area)Ordered By: Romel Davis on 09-05-2023 RBC Auto (Urine sed) [#/Area] 0-1 [HPF] 0-4 [facility] Automated leukocytes count i n urine sediment (number/area)Ordered By: Romel Davis on 09-05-2023 WBC Auto (Urine sed) [#/Area] 0-1 [HPF] 0-4 [facility] Automated monocyte %Ordered By: Romel Davis on 09-05-2023 Monocytes/100 WBC (Bld) 10.3 % Normal . [facility] Comment on above: Performed By: #### U 24 NA, COL T V, CREA24 #### [facility] [address] [place] [address] [place] #### PHOS 24HRU, CITRIC UR, U24 CA, URIC 24HRU, OXAL 24HRU, MAG 24HRU #### [facility] , Automated neutrophil %Ordere d By: Romel Davis on 09-05-2023 Neutrophils/100 WBC (Bld) 70.5 % Normal . [facility] Comment on above: Performed By: #### U 24 NA, COL T V, CREA24 #### [address] #### PHOS 24HRU, CITRIC UR, U24 CA, URIC 24HRU, OXAL 24HRU, MAG 24HRU #### [facility] , Automated urine color determ inationOrdered By: Romel Davis on 09-05-2023 Color (U) Yellow Normal Yellow [facility] Comment on above: Order Comment: URINE COLLECTION TIME (HRS): 24 URINE VOLUME (MILLILTERS): 2960 Performed By: #### U 24 NA, COL T V, CREA24 #### [address] #### PHOS 24HRU, CITRIC UR, U24 CA, URIC 24HRU, OXAL 24HRU, MAG 24HRU #### [facility] , Bilirubin Test strip Ql (U)O rdered By: Romel Davis on 09-05-2023 Bilirubin Ql (U) Negative Negative [facility] Bilirubin.total [Mass/volume ] in Serum or PlasmaOrdered By: Romel Davis on 09-05-2023 Bilirubin [Mass/Vol] 0.8 mg/dL Normal 0.3-1.0 [facility] Comment on above: Performed By: #### U 24 NA, COL T V, CREA24 #### [facility] [address] [place] [address] [place] #### PHOS 24HRU, CITRIC UR, U24 CA, URIC 24HRU, OXAL 24HRU, MAG 24HRU #### [facility] , Calcium [Mass/volume] in Ser um or PlasmaOrdered By: Romel Davis on 09-05-2023 Calcium [Mass/Vol] 9.2 mg/dL Normal 8.6-10.3 [facility] Comment on above: Performed By: #### U 24 NA, COL T V, CREA24 #### [facility] [address] [place] [address] [place] #### PHOS 24HRU, CITRIC UR, U24 CA, URIC 24HRU, OXAL 24HRU, MAG 24HRU #### [facility] , Carbon dioxide, total [Moles /volume] in Serum or PlasmaOrdered By: Romel Davis on 09-05-2023 CO2 [Moles/Vol] 27.9 mmol/L Normal 21.0-31.0 [facility] Comment on above: Performed By: #### U 24 NA, COL T V, CREA24 #### [facility] [address] [place] [address] #### PHOS 24HRU, CITRIC UR, U24 CA, URIC 24HRU, OXAL 24HRU, MAG 24HRU #### [facility] , Chloride [Moles/volume] in S ace or PlasmaOrdered By: Romel Davis on 09-05-2023 Chloride [Moles/Vol] 107 mmol/L Normal 98-107 [facility] Comment on above: Performed By: #### U 24 NA, COL T V, CREA24 #### [facility] [address] [place] [address] #### PHOS 24HRU, CITRIC UR, U24 CA, URIC 24HRU, OXAL 24HRU, MAG 24HRU #### [facility] , Complement C3on 09-05-2023 Complement C3 124 mg/dL Normal 82-167 [facility] Comment on above: Result Comment: Perf ormed at: CB - [facility] [address] [id number] [employer]: Richy Ardon PhD, Phone: [phone] Performed By: #### U 24 NA, COL T V, CREA24 #### [address] #### PHOS 24HRU, CITRIC UR, U24 CA, URIC 24HRU, OXAL 24HRU, MAG 24HRU #### [facility] , Complement C4on 09-05-2023 Complement C4 15 mg/dL Normal 12-38 [facility] Comment on above: Result Comment: PERF ORMED BY: [place] [address] PATHOLOGIST ALARM MECHANISM ADJUSTER OLMAN ALBARRAN M.D. Performed By: #### U 24 NA, COL T V, CREA24 #### [address] #### PHOS 24HRU, CITRIC UR, U24 CA, URIC 24HRU, OXAL 24HRU, MAG 24HRU #### [facility] , Complement Total (CH50)on Complement Total (CH50) 57 Normal >41 [facility] Comment on above: Result Comment: Age Male [...] out of range values. Performed at: - [facility] [id number] [employer]: Richy Ardon PhD, Phone: [phone] PERFORMED BY: [place] [address] PATHOLOGIST ALARM MECHANISM ADJUSTER OLMAN ALBARRAN M.D. Performed By: #### U 24 NA, COL T V, CREA24 #### [address] #### PHOS 24HRU, CITRIC UR, U24 CA, URIC 24HRU, OXAL 24HRU, MAG 24HRU #### [facility] , Complete Blood Count Auto Di ffon 09-05-2023 Mean Corpuscular HGB Conc 34.2 g/dL Normal 32.5-35.6 [facility] Comment on above: Performed By: #### U 24 NA, COL T V, CREA24 #### [address] #### PHOS 24HRU, CITRIC UR, U24 CA, URIC 24HRU, OXAL 24HRU, MAG 24HRU #### [facility] , NRBC% 0.1 /100{WBC} Normal 0-0.5 [facility] Comment on above: Performed By: #### U 24 NA, COL T V, CREA24 #### [address] #### PHOS 24HRU, CITRIC UR, U24 CA, URIC 24HRU, OXAL 24HRU, MAG 24HRU #### [facility] , Comprehensive Metabolic Pane [facility] 09-05-2023 Albumin [Mass/Vol] 4.2 g/dL Normal 3.5-5.7 [facility] Comment on above: Performed By: #### U 24 NA, COL T V, CREA24 #### [address] #### PHOS 24HRU, CITRIC UR, U24 CA, URIC 24HRU, OXAL 24HRU, MAG 24HRU #### [facility] , GFR/1.73 sq M.predicted MDRD (S/P/Bld) [Vol rate/Area] mL/min/{1.73_m2} Normal [facility] Comment on above: Performed By: #### U 24 NA, COL T V, CREA24 #### [place] [address] [place] #### PHOS 24HRU, CITRIC UR, U24 CA, URIC 24HRU, OXAL 24HRU, MAG 24HRU #### [facility] , Creatinine [Mass/volume] in Serum or PlasmaOrdered By: Romel Davis on 09-05-2023 Creatinine [Mass/Vol] 0.88 mg/dL Normal 0.70-1.30 [facility] Comment on above: Performed By: #### U 24 NA, COL T V, CREA24 #### [facility] [address] [place] [address] #### PHOS 24HRU, CITRIC UR, U24 CA, URIC 24HRU, OXAL 24HRU, MAG 24HRU #### [facility] , Dipstick and Microscopicon 1 Appearance (U) Clear Normal Clear [facility] Comment on above: Order Comment: URINE COLLECTION TIME (HRS): 24 URINE VOLUME (MILLILTERS): 2960 Performed By: #### U 24 NA, COL T V, CREA24 #### [address] #### PHOS 24HRU, CITRIC UR, U24 CA, URIC 24HRU, OXAL 24HRU, MAG 24HRU #### [facility] , Bacteria,Urine None Seen Normal None Seen [facility] Comment on above: Order Comment: URINE COLLECTION TIME (HRS): 24 URINE VOLUME (MILLILTERS): 2960 Performed By: #### U 24 NA, COL T V, CREA24 #### [facility] [address] [place] [address] #### PHOS 24HRU, CITRIC UR, U24 CA, URIC 24HRU, OXAL 24HRU, MAG 24HRU #### [facility] , Bilirubin,Urine Negative Normal Negative [facility] Comment on above: Order Comment: URINE COLLECTION TIME (HRS): 24 URINE VOLUME (MILLILTERS): 2960 Performed By: #### U 24 NA, COL T V, CREA24 #### [facility] [address] [place] [address] [place] #### PHOS 24HRU, CITRIC UR, U24 CA, URIC 24HRU, OXAL 24HRU, MAG 24HRU #### [facility] , Glucose Ql (U) Normal Normal Normal [facility] Comment on above: Order Comment: URINE COLLECTION TIME (HRS): 24 URINE VOLUME (MILLILTERS): 2960 Performed By: #### U 24 NA, COL T V, CREA24 #### [address] #### PHOS 24HRU, CITRIC UR, U24 CA, URIC 24HRU, OXAL 24HRU, MAG 24HRU #### [facility] , Hyaline Casts,Urine None Seen Normal 0-8 [facility] Comment on above: Order Comment: URINE COLLECTION TIME (HRS): 24 URINE VOLUME (MILLILTERS): 2960 Result Comment: PERF ORMED BY: [place] [address] PATHOLOGIST ALARM MECHANISM ADJUSTER OLMAN ALBARRAN M.D. Performed By: #### U 24 NA, COL T V, CREA24 #### [address] #### PHOS 24HRU, CITRIC UR, U24 CA, URIC 24HRU, OXAL 24HRU, MAG 24HRU #### [facility] , Ketones Ql (U) Trace High Negative [facility] Comment on above: Order Comment: URINE COLLECTION TIME (HRS): 24 URINE VOLUME (MILLILTERS): 2960 Performed By: #### U 24 NA, COL T V, CREA24 #### [address] #### PHOS 24HRU, CITRIC UR, U24 CA, URIC 24HRU, OXAL 24HRU, MAG 24HRU #### [facility] , Leukocyte esterase Test strip Ql (U) Negative Normal Negative [facility] Comment on above: Order Comment: URINE COLLECTION TIME (HRS): 24 URINE VOLUME (MILLILTERS): 2960 Performed By: #### U 24 NA, COL T V, CREA24 #### [address] #### PHOS 24HRU, CITRIC UR, U24 CA, URIC 24HRU, OXAL 24HRU, MAG 24HRU #### [facility] , Nitrite,Urine Negative Normal Negative [facility] Comment on above: Order Comment: URINE COLLECTION TIME (HRS): 24 URINE VOLUME (MILLILTERS): 2960 Performed By: #### U 24 NA, COL T V, CREA24 #### [address] #### PHOS 24HRU, CITRIC UR, U24 CA, URIC 24HRU, OXAL 24HRU, MAG 24HRU #### [facility] , Occult Blood,Urine Negative Normal Negative [facility] Comment on above: Order Comment: URINE COLLECTION TIME (HRS): 24 URINE VOLUME (MILLILTERS): 2960 Performed By: #### U 24 NA, COL T V, CREA24 #### [address] #### PHOS 24HRU, CITRIC UR, U24 CA, URIC 24HRU, OXAL 24HRU, MAG 24HRU #### [facility] , Protein,Urine Negative Normal Negative [facility] Comment on above: Order Comment: URINE COLLECTION TIME (HRS): 24 URINE VOLUME (MILLILTERS): 2960 Performed By: #### U 24 NA, COL T V, CREA24 #### [address] #### PHOS 24HRU, CITRIC UR, U24 CA, URIC 24HRU, OXAL 24HRU, MAG 24HRU #### [facility] , RBC LM.HPF (Urine sed) [#/Area] 0 /[HPF] Normal 0-4 [facility] Comment on above: Order Comment: URINE COLLECTION TIME (HRS): 24 URINE VOLUME (MILLILTERS): 2960 Performed By: #### U 24 NA, COL T V, CREA24 #### [place] [address] [place] #### PHOS 24HRU, CITRIC UR, U24 CA, URIC 24HRU, OXAL 24HRU, MAG 24HRU #### [facility] , Specificy [place],Urine 1.025 Normal 1.001-1.03 0 [facility] Comment on above: Order Comment: URINE COLLECTION TIME (HRS): 24 URINE VOLUME (MILLILTERS): 2960 Performed By: #### U 24 NA, COL T V, CREA24 #### [place] [address] [place] #### PHOS 24HRU, CITRIC UR, U24 CA, URIC 24HRU, OXAL 24HRU, MAG 24HRU #### [facility] , Squamous Epithelial Cell,Urine None Seen Normal 0-2 [facility] Comment on above: Order Comment: URINE COLLECTION TIME (HRS): 24 URINE VOLUME (MILLILTERS): 2960 Performed By: #### U 24 NA, COL T V, CREA24 #### [address] #### PHOS 24HRU, CITRIC UR, U24 CA, URIC 24HRU, OXAL 24HRU, MAG 24HRU #### [facility] , Urobilinogen,Urine Normal Normal Normal [facility] Comment on above: Order Comment: URINE COLLECTION TIME (HRS): 24 URINE VOLUME (MILLILTERS): 2960 Performed By: #### U 24 NA, COL T V, CREA24 #### [address] #### PHOS 24HRU, CITRIC UR, U24 CA, URIC 24HRU, OXAL 24HRU, MAG 24HRU #### [facility] , WBC LM.HPF (Urine sed) [#/Area] 0 /[HPF] Normal 0-4 [facility] Comment on above: Order Comment: URINE COLLECTION TIME (HRS): 24 URINE VOLUME (MILLILTERS): 2960 Performed By: #### U 24 NA, COL T V, CREA24 #### [facility] [address] [place] [address] [place] #### PHOS 24HRU, CITRIC UR, U24 CA, URIC 24HRU, OXAL 24HRU, MAG 24HRU #### [facility] , Erythrocyte Sedimentation Ra bruno 09-05-2023 ESR (Bld) [Velocity] 3 mm/h Normal 0-19 [facility] Comment on above: Result Comment: PERF ORMED BY: [place] [address] PATHOLOGIST ALARM MECHANISM ADJUSTER OLMAN ALBARRAN M.D. Performed By: #### U 24 NA, COL T V, CREA24 #### [facility] [address] [place] [address] #### PHOS 24HRU, CITRIC UR, U24 CA, URIC 24HRU, OXAL 24HRU, MAG 24HRU #### [facility] , Erythrocyte distribution wid th [Ratio] by Automated countOrdered By: Romel Davis on 09-05-2023 Erythrocyte distribution width (RBC) [Ratio] 14.1 % Normal 12.0-14.8 [facility] Comment on above: Performed By: #### U 24 NA, COL T V, CREA24 #### [address] #### PHOS 24HRU, CITRIC UR, U24 CA, URIC 24HRU, OXAL 24HRU, MAG 24HRU #### [facility] , Erythrocyte sedimentation ra te by Photometric methodOrdered By: Romel Davis on 09-05-2023 ESR Photometric method (Bld) [Velocity] 3 mm/hr 0-19 [facility] Erythrocytes [#/volume] in B lood by Automated countOrdered By: Romel Davis on 09-05-2023 RBC (Bld) [#/Vol] 4.96 10*6/uL Normal 3.90-5.60 [facility] Comment on above: Performed By: #### U 24 NA, COL T V, CREA24 #### [facility] [address] [place] [address] [place] #### PHOS 24HRU, CITRIC UR, U24 CA, URIC 24HRU, OXAL 24HRU, MAG 24HRU #### [facility] , Glucose [Mass/volume] in Ser um or PlasmaOrdered By: Romel Davis on 09-05-2023 Glucose [Mass/Vol] 75 mg/dL Normal 70-100 [facility] Comment on above: ADA recommended refe rence rangeRandom Glucose Reference Range is dependent on time and content of last meal. Glucose of more than 200 mg/dL in a nonstressed, ambulatory subject supports the diagnosis of Diabetes Mellitus. Result Comment: [place] Glucose Reference Range is dependent on time and content of last meal. Glucose of more than 200 mg/dL in a nonstressed, ambulatory subject supports the diagnosis of Diabetes Mellitus. ADA recommended reference range Performed By: #### U 24 NA, COL T V, CREA24 #### [address] #### PHOS 24HRU, CITRIC UR, U24 CA, URIC 24HRU, OXAL 24HRU, MAG 24HRU #### [facility] , Hematocrit [Volume Fraction] of Blood by Automated countOrdered By: Romel Davis on 09-05-2023 Hematocrit (Bld) [Volume fraction] 44.5 % Normal 38.8-50.0 [facility] Comment on above: Performed By: #### U 24 NA, COL T V, CREA24 #### [place] [address] [place] #### PHOS 24HRU, CITRIC UR, U24 CA, URIC 24HRU, OXAL 24HRU, MAG 24HRU #### [facility] , Hemoglobin [Mass/volume] in BloodOrdered By: Romel Davis on 09-05-2023 Hemoglobin (Bld) [Mass/Vol] 15.2 g/dL Normal 13.0-17.0 [facility] Comment on above: Performed By: #### U 24 NA, COL T V, CREA24 #### [place] [address] [place] #### PHOS 24HRU, CITRIC UR, U24 CA, URIC 24HRU, OXAL 24HRU, MAG 24HRU #### [facility] , Ketones Auto test strip (U) [Mass/Vol]Ordered By: Romel Davis on 09-05-2023 Ketones (U) [Mass/Vol] Trace Negative [facility] - UrinalysisOrder ed By: Romel Mendezrow on 09-05-2023 Hyaline casts LM Ql (Urine sed) None seen [LPF] 0-8 [facility] Leukocytes [#/volume] correc nat for nucleated erythrocytes in Blood by Automated counOrdered By: Romel Davis on 09-05-2023 WBC corrected for nucl RBC Auto (Bld) [#/Vol] 5.9 10*3/uL 4.1-10.5 [facility] Leukocytes [#/volume] in Blo od by Automated countOrdered By: Romel Mendezrow on 09-05-2023 WBC (Bld) [#/Vol] 5.9 10*3/uL Normal 4.1-10.5 [facility] Comment on above: Performed By: #### U 24 NA, COL T V, CREA24 #### [facility] [address] [place] [address] [place] #### PHOS 24HRU, CITRIC UR, U24 CA, URIC 24HRU, OXAL 24HRU, MAG 24HRU #### [facility] , Lymphocytes [#/volume] in Bl ood by Automated countOrdered By: Romel Mendezrow on 09-05-2023 Lymphocytes (Bld) [#/Vol] 1.1 10*3/uL Normal 1.00-4.8 [facility] Comment on above: Performed By: #### U 24 NA, COL T V, CREA24 #### [facility] [address] [place] [address] [place] #### PHOS 24HRU, CITRIC UR, U24 CA, URIC 24HRU, OXAL 24HRU, MAG 24HRU #### [facility] , Lymphocytes/100 leukocytes i n Blood by Automated countOrdered By: Romelsera Davis on 09-05-2023 Lymphocytes/100 WBC (Bld) 17.7 % Normal . [facility] Comment on above: Performed By: #### U 24 NA, COL T V, CREA24 #### [facility] [address] [place] [address] [place] #### PHOS 24HRU, CITRIC UR, U24 CA, URIC 24HRU, OXAL 24HRU, MAG 24HRU #### [facility] , MCH [Entitic mass] by Automa nat countOrdered By: Romel Mendezrow on 09-05-2023 MCH (RBC) [Entitic mass] 30.7 pg Normal 27.5-35.2 [facility] Comment on above: Performed By: #### U 24 NA, COL T V, CREA24 #### [address] #### PHOS 24HRU, CITRIC UR, U24 CA, URIC 24HRU, OXAL 24HRU, MAG 24HRU #### [facility] , MCHC Auto (RBC) [Mass/Vol]Or dered By: Romel Davis on 09-05-2023 MCHC (RBC) [Mass/Vol] 34.2 g/dL 32.5-35.6 [facility] MCV [Entitic volume] by Auto mated countOrdered By: Romel Davis on 09-05-2023 MCV (RBC) [Entitic vol] 89.9 fL Normal 83.5-101 [facility] Comment on above: Performed By: #### U 24 NA, COL T V, CREA24 #### [address] #### PHOS 24HRU, CITRIC UR, U24 CA, URIC 24HRU, OXAL 24HRU, MAG 24HRU #### [facility] , Neutrophils [#/volume] in Bl ood by Automated countOrdered By: Romel Davis on 09-05-2023 Neutrophils (Bld) [#/Vol] 4.2 10*3/uL Normal 1.8-7.7 [facility] Comment on above: Performed By: #### U 24 NA, COL T V, CREA24 #### [address] #### PHOS 24HRU, CITRIC UR, U24 CA, URIC 24HRU, OXAL 24HRU, MAG 24HRU #### [facility] , Nitrite Test strip Ql (U)Ord ered By: Romel Davis on 09-05-2023 Nitrite Ql (U) Negative Negative [facility] No Panel InformationOrdered By: Romel Davis on 09-05-2023 Estimated GFR (CKD-EPI) > 60.0 mL/Min [facility] Creatinine Clearance (Chem N/A [facility] Total Complement (CH50) 57 U/mL >41 [facility] Comment on above: Age Male Female 3 [...] determine out of range values.Performed at: - [facility] [id number] Director: Richy Ardon PhD, Phone: [phone] Nucleated erythrocytes [Pres ence] in Blood by Automated countOrdered By: Romel Ryan on 09-05-2023 Nucleated RBC Auto Ql (Bld) 0.1 /100{WBC} 0-0.5 [facility] Platelet mean volume [Entiti c volume] in Blood by Automated countOrdered By: Romel Mendezrow on 09-05-2023 Platelet mean volume (Bld) [Entitic vol] 8.9 fL Normal 6.6-10.1 [facility] Comment on above: Performed By: #### U 24 NA, COL T V, CREA24 #### [facility] [address] #### PHOS 24HRU, CITRIC UR, U24 CA, URIC 24HRU, OXAL 24HRU, MAG 24HRU #### [facility] , Platelets [#/volume] in Bloo d by Automated countOrdered By: Romel Mendezrow on 09-05-2023 Platelets (Bld) [#/Vol] 175 10*3/uL Normal 150-450 [facility] Comment on above: Performed By: #### U 24 NA, COL T V, CREA24 #### [facility] [address] [place] [address] #### PHOS 24HRU, CITRIC UR, U24 CA, URIC 24HRU, OXAL 24HRU, MAG 24HRU #### [facility] , Potassium [Moles/volume] in Serum or PlasmaOrdered By: Romel Davis on 09-05-2023 Potassium [Moles/Vol] 4.1 mmol/L Normal 3.5-5.1 [facility] Comment on above: Performed By: #### U 24 NA, COL T V, CREA24 #### [facility] [address] [place] [address] #### PHOS 24HRU, CITRIC UR, U24 CA, URIC 24HRU, OXAL 24HRU, MAG 24HRU #### [facility] , Protein Auto test strip (U) [Mass/Vol]Ordered By: Romel Davis on 09-05-2023 Protein (U) [Mass/Vol] Negative Negative [facility] Protein [Mass/volume] in Ser um or PlasmaOrdered By: Romel Davis on 09-05-2023 Protein [Mass/Vol] 6.1 g/dL Low 6.4-8.9 [facility] Comment on above: Performed By: #### U 24 NA, COL T V, CREA24 #### [facility] [address] [place] [address] #### PHOS 24HRU, CITRIC UR, U24 CA, URIC 24HRU, OXAL 24HRU, MAG 24HRU #### [facility] , Serum globulin measurement b y calculation (mass/volume)Ordered By: Romel Davis on 09-05-2023 Globulin (S) [Mass/Vol] 1.9 g/dL Normal [facility] Comment on above: Performed By: #### U 24 NA, COL T V, CREA24 #### [facility] [address] [place] [address] #### PHOS 24HRU, CITRIC UR, U24 CA, URIC 24HRU, OXAL 24HRU, MAG 24HRU #### [facility] , Serum or plasma albumin/glob ulin mass ratioOrdered By: Romel Davis on 09-05-2023 Albumin/Globulin [Mass ratio] 2.2 {ratio} Normal [facility] Comment on above: Performed By: #### U 24 NA, COL T V, CREA24 #### [address] #### PHOS 24HRU, CITRIC UR, U24 CA, URIC 24HRU, OXAL 24HRU, MAG 24HRU #### [facility] , Serum or plasma anion gap de terminationOrdered By: Romel Davis on 09-05-2023 Anion gap [Moles/Vol] 10.2 mmol/L Normal 6.0-15.[address] [facility] Comment on above: Performed By: #### U 24 NA, COL T V, CREA24 #### [address] #### PHOS 24HRU, CITRIC UR, U24 CA, URIC 24HRU, OXAL 24HRU, MAG 24HRU #### [facility] , Serum or plasma complement C 3 measurement (mass/volume)Ordered By: Romel Davis on 09-05-2023 Complement C3 [Mass/Vol] 124 mg/dL 82-167 [facility] Comment on above: Performed at: [address] Director: Richy Ardon PhD, Phone: [phone] Serum or plasma complement C 4 measurement (mass/volume)Ordered By: Romel Davis on 09-05-2023 Complement C4 [Mass/Vol] 15 mg/dL 12-38 [facility] Sodium [Moles/volume] in Ser um or PlasmaOrdered By: Romel Davis on 09-05-2023 Sodium [Moles/Vol] 141 mmol/L Normal 136-145 [facility] Comment on above: Performed By: #### U 24 NA, COL T V, CREA24 #### [address] #### PHOS 24HRU, CITRIC UR, U24 CA, URIC 24HRU, OXAL 24HRU, MAG 24HRU #### [facility] , Specific gravity Auto test s trip (U) [Rel density]Ordered By: Romel Davis on 09-05-2023 Specific gravity (U) [Rel density] 1.025 1.001-1.03 0 [facility] Squamous epithelial cells de tection in urine sediment by light microscopyOrdered By: Romel Davis on 09-05-2023 Epithelial cells.squamous LM Ql (Urine sed) None seen [HPF] 0-2 [facility] Urea nitrogen [Mass/volume] in Serum or PlasmaOrdered By: Romel Davis on 09-05-2023 Urea nitrogen [Mass/Vol] 19 mg/dL Normal 7-25 [facility] Comment on above: Performed By: #### U 24 NA, COL T V, CREA24 #### [facility] [address] [place] [address] #### PHOS 24HRU, CITRIC UR, U24 CA, URIC 24HRU, OXAL 24HRU, MAG 24HRU #### [facility] , Urine bacteria detection by automated methodOrdered By: Romel Davis on 09-05-2023 Bacteria Auto Ql (U) None seen None Seen [facility] Urine clarity by refractomet ry automatedOrdered By: Romel aDvis on 09-05-2023 Clarity Refractometry automated (U) Clear Clear [facility] Urine glucose measurement by automated test strip (mass/volume)Ordered By: Romel Davis on 09-05-2023 Glucose Auto test strip (U) [Mass/Vol] Normal mg/dL Normal [facility] Urine hemoglobin detection b y automated test stripOrdered By: Romel Davis on 09-05-2023 Hemoglobin Auto test strip Ql (U) Negative Negative [facility] Urine leukocyte esterase det ection by automated test stripOrdered By: Romel Davis on 09-05-2023 Leukocyte esterase Auto test strip Ql (U) Negative Negative [facility] Urine pH measurement by auto mated test stripOrdered By: Romel Davis on 09-05-2023 pH (U) 5.5 [pH] Normal 5.0-9.0 [facility] Comment on above: Order Comment: URINE COLLECTION TIME (HRS): 24 URINE VOLUME (MILLILTERS): 2960 Performed By: #### U 24 NA, COL T V, CREA24 #### [facility] [address] #### PHOS 24HRU, CITRIC UR, U24 CA, URIC 24HRU, OXAL 24HRU, MAG 24HRU #### [facility] , Urobilinogen Auto test strip (U) [Mass/Vol]Ordered By: Romel Davis on 09-05-2023 Urobilinogen (U) [Mass/Vol] Normal mg/dL Normal [facility] Lab Reportson 08-29-2023 Lab Reports [id number] Normal [facility] Report[facility] 08-19-2023 Lab Reports [id number]#[id number]:127 Normal [facility] Report[facility] 08-17-2023 Lab Reports [id number]#[id number]:127 Normal [facility] 24 Hr Urine Uric Acidon 07-23 Uric Acid, 24 Hr Urine 674.9 Normal 182.4 -936. 8 [facility] Comment on above: Order Comment: URINE VOLUME (MILLILTERS): 2960 Result Comment: Perf ormed at: - [facility] [address] [id number] [employer]: Richy Ardon PhD, Phone: [phone] Performed By: #### U 24 NA, COL T V, CREA24 #### [facility] [address] [place] [address] #### PHOS 24HRU, CITRIC UR, U24 CA, URIC 24HRU, OXAL 24HRU, MAG 24HRU #### [facility] , Urine Uric Acid 22.8 mg/dL Normal Not Estab. [facility] Comment on above: Order Comment: URINE VOLUME (MILLILTERS): 2960 Performed By: #### U 24 NA, COL T V, CREA24 #### [facility] [address] [place] [address] [place] #### PHOS 24HRU, CITRIC UR, U24 CA, URIC 24HRU, OXAL 24HRU, MAG 24HRU #### [facility] , 24 hour urine sodium measure ment (moles/time)Ordered By: Zac Muniz on 08-16-2023 Sodium (24H U) [Moles/Time] 181 mmol/24 40-220 [facility] 24 hour urine uric acid ophelia urement (mass/time)Ordered By: Zac Muniz on 08-16-2023 Urate (24H U) [Mass/Time] 674.9 mg/24 hr 182.4-936. 8 [facility] Comment on above: Performed at: [address] Director: Richy Ardon PhD, Phone: [phone] CT biopsyOrdered By: Zac Muniz on 08-16-2023 CT biopsy 24 Hours [facility] Calcium [Mass/time] in 24 ho ur UrineOrdered By: Zac Muniz on 08-16-2023 Calcium (24H U) [Mass/Time] 98 mg/24 hr 0-320 [facility] Calcium [Mass/volume] in 24 hour UrineOrdered By: Zac Muniz on 08-16-2023 Calcium (24H U) [Mass/Vol] 3.3 mg/dL Not Estab. [facility] Calcium [Mass/volume] in Ser um or PlasmaOrdered By: Zac Muniz on 08-16-2023 Calcium [Mass/Vol] 9.2 mg/dL Normal 8.6-10.3 [facility] Comment on above: Performed By: #### U 24 NA, COL T V, CREA24 #### [facility] [address] [place] [address] [place] #### PHOS 24HRU, CITRIC UR, U24 CA, URIC 24HRU, OXAL 24HRU, MAG 24HRU #### [facility] , Calcium, 24Hr Urineon 2022 Calcium, Urine 3.3 mg/dL Normal Not Estab. [facility] Comment on above: Order Comment: URINE VOLUME (MILLILTERS): 2960 Performed By: #### U 24 NA, COL T V, CREA24 #### [address] #### PHOS 24HRU, CITRIC UR, U24 CA, URIC 24HRU, OXAL 24HRU, MAG 24HRU #### [facility] , Calcium, Urine 24 Hr 98 Normal 0-320 [facility] Comment on above: Order Comment: URINE VOLUME (MILLILTERS): 2960 Performed By: #### U 24 NA, COL T V, CREA24 #### [address] #### PHOS 24HRU, CITRIC UR, U24 CA, URIC 24HRU, OXAL 24HRU, MAG 24HRU #### [facility] , Carbon dioxide, total [Moles /volume] in Serum or PlasmaOrdered By: Zac Muniz on 08-16-2023 CO2 [Moles/Vol] 22.4 mmol/L Normal 21.0-31.0 [facility] Comment on above: Performed By: #### U 24 NA, COL T V, CREA24 #### [address] #### PHOS 24HRU, CITRIC UR, U24 CA, URIC 24HRU, OXAL 24HRU, MAG 24HRU #### [facility] , Chloride [Moles/volume] in S ace or PlasmaOrdered By: Zac Muniz on 08-16-2023 Chloride [Moles/Vol] 108 mmol/L High 98-107 [facility] Comment on above: Performed By: #### U 24 NA, COL T V, CREA24 #### [facility] [address] [place] [address] #### PHOS 24HRU, CITRIC UR, U24 CA, URIC 24HRU, OXAL 24HRU, MAG 24HRU #### [facility] , Citric Acid, Urine, 24 Houro n 08-16-2023 Citric Acid, Urine 219 mg/L Normal Undefined [facility] Comment on above: Order Comment: URINE VOLUME (MILLILTERS): 2960 Result Comment: This test was developed and its performance characteristics determined by [facility]. It has not been cleared or approved by the Food and Drug Administration. Performed By: #### U 24 NA, COL T V, CREA24 #### [address] #### PHOS 24HRU, CITRIC UR, U24 CA, URIC 24HRU, OXAL 24HRU, MAG 24HRU #### [facility] , Citric Acid, Urine, 24HR 648 Normal 320-1240 [facility] Comment on above: Order Comment: URINE VOLUME (MILLILTERS): 2960 Result Comment: Perf ormed at: [address] [id number] [employer]: Kaley Joaquin MD, Phone: [phone] PERFORMED BY: [place] [address] PATHOLOGIST ALARM MECHANISM ADJUSTER OLMAN ALBARRAN M.D. Performed By: #### U 24 NA, COL T V, CREA24 #### [address] #### PHOS 24HRU, CITRIC UR, U24 CA, URIC 24HRU, OXAL 24HRU, MAG 24HRU #### [facility] , Mainor Time and Vol 24 hr uron 08-16-2023 Total Volume, Urine 2960 Normal [facility] Comment on above: Order Comment: URINE COLLECTION TIME (HRS): 24 URINE VOLUME (MILLILTERS): 2960 Result Comment: PERF ORMED BY: [place] [address] PATHOLOGIST ALARM MECHANISM ADJUSTER OLMAN ALBARRAN M.D. Performed By: #### U 24 NA, COL T V, CREA24 #### [place] [address] [place] #### PHOS 24HRU, CITRIC UR, U24 CA, URIC 24HRU, OXAL 24HRU, MAG 24HRU #### [facility] , Urine Collection Time 24 Normal [facility] Comment on above: Order Comment: URINE COLLECTION TIME (HRS): 24 URINE VOLUME (MILLILTERS): 2960 Performed By: #### U 24 NA, COL T V, CREA24 #### [facility] [address] [place] [address] #### PHOS 24HRU, CITRIC UR, U24 CA, URIC 24HRU, OXAL 24HRU, MAG 24HRU #### [facility] , Creatinineon 08-16-2023 GFR/1.73 sq M.predicted MDRD (S/P/Bld) [Vol rate/Area] mL/min/{1.73_m2} Normal [facility] Comment on above: Performed By: #### U 24 NA, COL T V, CREA24 #### [address] #### PHOS 24HRU, CITRIC UR, U24 CA, URIC 24HRU, OXAL 24HRU, MAG 24HRU #### [facility] , Creatinine [Mass/volume] in Serum or PlasmaOrdered By: Zac Muniz on 08-16-2023 Creatinine [Mass/Vol] 0.88 mg/dL Normal 0.70-1.30 [facility] Comment on above: Performed By: #### U 24 NA, COL T V, CREA24 #### [facility] [address] [place] [address] [place] #### PHOS 24HRU, CITRIC UR, U24 CA, URIC 24HRU, OXAL 24HRU, MAG 24HRU #### [facility] , Creatinine [Mass/volume] in UrineOrdered By: Zac Muniz on 08-16-2023 Creatinine (U) [Mass/Vol] 57.00 mg/dL 14.00-26.0 0 [facility] Creatinine, 24 Hr Urineon Creatinine 24 Hour, Urine 1.68 g/24_hr Normal 1.00-2.09 [facility] Comment on above: Order Comment: URINE COLLECTION TIME (HRS): 24 URINE VOLUME (MILLILTERS): 2960 Performed By: #### U 24 NA, COL T V, CREA24 #### [facility] [address] [place] [address] #### PHOS 24HRU, CITRIC UR, U24 CA, URIC 24HRU, OXAL 24HRU, MAG 24HRU #### [facility] , Creatinine, Urine 57.00 mg/dL High 14.00-26.0 0 [facility] Comment on above: Order Comment: URINE COLLECTION TIME (HRS): 24 URINE VOLUME (MILLILTERS): 2960 Performed By: #### U 24 NA, COL T V, CREA24 #### [facility] [address] [place] [address] #### PHOS 24HRU, CITRIC UR, U24 CA, URIC 24HRU, OXAL 24HRU, MAG 24HRU #### [facility] , Magnesium [Mass/time] in 24 hour UrineOrdered By: Zac Muniz on 08-16-2023 Magnesium (24H U) [Mass/Time] 97.7 mg/24 hr 12.0-293.0 [facility] Magnesium [Mass/volume] in U rineOrdered By: Zac Muniz on 08-16-2023 Magnesium (U) [Mass/Vol] 3.3 mg/dL Not Estab. [facility] Magnesium, Urine 24Hron 07-23 Magnesium, 24Hr Urine 97.7 Normal 12.0-293.0 [facility] Comment on above: Order Comment: URINE VOLUME (MILLILTERS): 2960 Performed By: #### U 24 NA, COL T V, CREA24 #### [facility] [address] [place] [address] [place] #### PHOS 24HRU, CITRIC UR, U24 CA, URIC 24HRU, OXAL 24HRU, MAG 24HRU #### [facility] , Magnesium, Urine 3.3 mg/dL Normal Not Estab. [facility] Comment on above: Order Comment: URINE VOLUME (MILLILTERS): 2960 Performed By: #### U 24 NA, COL T V, CREA24 #### [facility] [address] [place] [address] [place] #### PHOS 24HRU, CITRIC UR, U24 CA, URIC 24HRU, OXAL 24HRU, MAG 24HRU #### [facility] , No Panel InformationOrdered By: Zac Muniz on 08-16-2023 Estimated GFR (CKD-EPI) > 60.0 mL/Min [facility] Creatinine Clearance (Chem N/A [facility] Urine Citric Acid 219 mg/L Undefined [facility] Comment on above: This test was develo ped and its performance characteristicsdetermined by [facility]. It has not been cleared orapproved by the Food and Drug Administration. Urine Citric Acid 24 Hour 648 mg/24 hr 320-1240 [facility] Comment on above: Performed at: [address] [id number] Director: Kaley Joaquin MD, Phone: [phone] Urine Creatinine 24 Hour 1.68 g/24 hr 1.00-2.09 [facility] Oxalate [Mass/time] in 24 ho ur UrineOrdered By: Zac Muniz on 08-16-2023 Oxalate (24H U) [Mass/Time] 18 mg/24 hr 7- [facility] Oxalate [Mass/volume] in Uri neOrdered By: Zac Muniz on 08-16-2023 Oxalate (U) [Mass/Vol] 6 mg/L Undefined [facility] Oxalate, Quant, 24Hr Urineon 08-16-2023 Oxalates, Urine 6 mg/L Normal Undefined [facility] Comment on above: Order Comment: URINE VOLUME (MILLILTERS): 2960 Performed By: #### U 24 NA, COL T V, CREA24 #### [facility] [address] [place] [address] [place] #### PHOS 24HRU, CITRIC UR, U24 CA, URIC 24HRU, OXAL 24HRU, MAG 24HRU #### [facility] , Oxalates, Urine 24Hr 18 Normal - [facility] Comment on above: Order Comment: URINE VOLUME (MILLILTERS): 2960 Performed By: #### U 24 NA, COL T V, CREA24 #### [facility] [address] [place] [address] [place] #### PHOS 24HRU, CITRIC UR, U24 CA, URIC 24HRU, OXAL 24HRU, MAG 24HRU #### [facility] , Parathyrin.intact [Mass/volu me] in Serum or PlasmaOrdered By: Zac Muniz on 08-16-2023 Parathyrin.intact [Mass/Vol] 53.9 pg/mL [facility] Parathyroid Hormone Intacton 08-16-2023 Parathyroid Hormone Intact 53.9 pg/mL Normal [facility] Comment on above: Result Comment: PERF ORMED BY: [place] [address] PATHOLOGIST ALARM MECHANISM ADJUSTER OLMAN ALBARRAN M.D. Performed By: #### U 24 NA, COL T V, CREA24 #### [address] #### PHOS 24HRU, CITRIC UR, U24 CA, URIC 24HRU, OXAL 24HRU, MAG 24HRU #### [facility] , Phosphate [Mass/time] in 24 hour UrineOrdered By: Zac Muniz on 08-16-2023 Phosphate (24H U) [Mass/Time] 462 mg/24 hr 390-1425 [facility] Phosphate [Mass/volume] in U rineOrdered By: Zac Muniz on 08-16-2023 Phosphate (U) [Mass/Vol] 15.6 mg/dL Not Estab. [facility] Phosphorus, 24Hr Urineon Phosphorous, Urine 15.6 mg/dL Normal Not Estab. [facility] Comment on above: Order Comment: URINE VOLUME (MILLILTERS): 2960 Performed By: #### U 24 NA, COL T V, CREA24 #### [place] [address] [place] #### PHOS 24HRU, CITRIC UR, U24 CA, URIC 24HRU, OXAL 24HRU, MAG 24HRU #### [facility] , Phosphorus, Urine 24Hr 462 Normal 390-1425 [facility] Comment on above: Order Comment: URINE VOLUME (MILLILTERS): 2960 Performed By: #### U 24 NA, COL T V, CREA24 #### [address] #### PHOS 24HRU, CITRIC UR, U24 CA, URIC 24HRU, OXAL 24HRU, MAG 24HRU #### [facility] , Potassium [Moles/volume] in Serum or PlasmaOrdered By: Zac Muniz on 08-16-2023 Potassium [Moles/Vol] 4.0 mmol/L Normal 3.5-5.1 [facility] Comment on above: Performed By: #### U 24 NA, COL T V, CREA24 #### [address] #### PHOS 24HRU, CITRIC UR, U24 CA, URIC 24HRU, OXAL 24HRU, MAG 24HRU #### [facility] , Serum or plasma anion gap de terminationOrdered By: Zac Muniz on 08-16-2023 Anion gap [Moles/Vol] 12.6 mmol/L Normal 6.0-15.[address] [facility] Comment on above: Performed By: #### U 24 NA, COL T V, CREA24 #### [place] [address] [place] #### PHOS 24HRU, CITRIC UR, U24 CA, URIC 24HRU, OXAL 24HRU, MAG 24HRU #### [facility] , Sodium [Moles/volume] in Ser um or PlasmaOrdered By: Zac Muniz on 08-16-2023 Sodium [Moles/Vol] 139 mmol/L Normal 136-145 [facility] Comment on above: Performed By: #### U 24 NA, COL T V, CREA24 #### [place] [address] [place] #### PHOS 24HRU, CITRIC UR, U24 CA, URIC 24HRU, OXAL 24HRU, MAG 24HRU #### [facility] , Sodium [Moles/volume] in Uri neOrdered By: Zac Muniz on 08-16-2023 Sodium (U) [Moles/Vol] 61.0 mmol/L Normal [facility] Comment on above: No reference range e stablished Order Comment: URINE COLLECTION TIME (HRS): 24 URINE VOLUME (MILLILTERS): 2960 Result Comment: No r eference range established Performed By: #### U 24 NA, COL T V, CREA24 #### [address] #### PHOS 24HRU, CITRIC UR, U24 CA, URIC 24HRU, OXAL 24HRU, MAG 24HRU #### [facility] , Sodium, 24 Hr Urineon 2022 Sodium 24 Hour Urine 181 Normal 40-220 [facility] Comment on above: Order Comment: URINE COLLECTION TIME (HRS): 24 URINE VOLUME (MILLILTERS): 2960 Performed By: #### U 24 NA, COL T V, CREA24 #### [address] #### PHOS 24HRU, CITRIC UR, U24 CA, URIC 24HRU, OXAL 24HRU, MAG 24HRU #### [facility] , Urate [Mass/volume] in Serum or PlasmaOrdered By: Zac Muniz on 08-16-2023 Urate [Mass/Vol] 4.3 mg/dL Low 4.4-7.6 [facility] Comment on above: Result Comment: PERF ORMED BY: [place] [address] PATHOLOGIST ALARM MECHANISM ADJUSTER OLMAN ALBARRAN M.D. Performed By: #### U 24 NA, COL T V, CREA24 #### [address] #### PHOS 24HRU, CITRIC UR, U24 CA, URIC 24HRU, OXAL 24HRU, MAG 24HRU #### [facility] , Urea nitrogen [Mass/volume] in Serum or PlasmaOrdered By: Zac Muniz on 08-16-2023 Urea nitrogen [Mass/Vol] 22 mg/dL Normal 7-25 [facility] Comment on above: Performed By: #### U 24 NA, COL T V, CREA24 #### [place] [address] [place] #### PHOS 24HRU, CITRIC UR, U24 CA, URIC 24HRU, OXAL 24HRU, MAG 24HRU #### [facility] , Urine uric acid measurement (mass/volume)Ordered By: Zac Muniz on 08-16-2023 Urate (U) [Mass/Vol] 22.8 mg/dL Not Estab. [facility] Urine volume measurementOrde red By: Zac Muniz on 08-16-2023 Specimen volume (U) 2960 ml [facility] RAD - MISCon 08-04-2023 RAD - MIS [id number]#1.00CD:127 Normal [facility] XR abdomen 1Von 08-04-2023 XR abdomen 1V [facility] Main [place] [address] [place] [address] XRay Report Signed Patient: Valentin Torre MR#: [id number] 31 : 1955 Acct:[id number] Age/Sex: 68 / M ADM Date: 08/04/23 Loc: XD Room: Type: [facility] Attending Dr: Zac Muniz MD Copies to: Zac Muniz MD Ordering Provider: Zac Mnuiz MD Date of Service: 08/04/23 XR/XR abdomen [...] Christine Alexandra M.D.08/04/2023 11:03 AM Dictation Location: [place] [address] Transcribed By: MARV 08/04/23 1103 Dictated By: Christine Alexandra MD 08/04/23 1101 Signed By: 08/04/23 1103 Normal [facility] Lab Reportson 06-10-2023 Lab Reports [id number]:127 Normal [facility] Lab Report[facility] 06-03-2023 Lab Reports [id number]#[id number]:127 Normal [facility] Alanine aminotransferase [En zymatic activity/volume] in Serum or PlasmaOrdered By: Zac Muniz on 05-31-2023 ALT [Catalytic activity/Vol] 34 U/L 7-52 [facility] Albumin [Mass/volume] in Ser um or Plasma by Bromocresol green (BCG) dye binding methoOrdered By: Zac Muniz on 05-31-2023 Albumin BCG dye [Mass/Vol] 4.4 g/dL 3.5-5.7 [facility] Alkaline phosphatase [Enzyma tic activity/volume] in Serum or PlasmaOrdered By: Zac Muniz on 05-31-2023 ALP [Catalytic activity/Vol] 82 U/L 34-104 [facility] Aspartate aminotransferase [ Enzymatic activity/volume] in Serum or PlasmaOrdered By: Zac Muniz on 05-31-2023 AST [Catalytic activity/Vol] 24 U/L 13-39 [facility] Automated erythrocytes count in urine sediment (number/area)Ordered By: Christine Sanchez on 05-31-2023 RBC Auto (Urine sed) [#/Area] 1-2 [HPF] 0-4 [facility] Automated leukocytes count i n urine sediment (number/area)Ordered By: Christine Sanchez on 05-31-2023 WBC Auto (Urine sed) [#/Area] 0-1 [HPF] 0-4 [facility] Basophils Auto (Bld) [#/Vol] Ordered By: Christine Sanchez on 05-31-2023 Basophils (Bld) [#/Vol] 0.0 10*3/uL 0.0-0.2 [facility] Basophils/100 WBC Auto (Bld) Ordered By: Christine Sanchez on 05-31-2023 Basophils/100 WBC (Bld) 0.8 % . [facility] Bilirubin Test strip Ql (U)O rdered By: Christine Sanchez on 05-31-2023 Bilirubin Ql (U) Negative Negative [facility] Bilirubin.total [Mass/volume ] in Serum or PlasmaOrdered By: Zac Muniz on 05-31-2023 Bilirubin [Mass/Vol] 0.8 mg/dL 0.3-1.0 [facility] Calcium [Mass/volume] in Ser um or PlasmaOrdered By: Zac Muniz on 05-31-2023 Calcium [Mass/Vol] 9.1 mg/dL 8.6-10.3 [facility] Carbon dioxide, total [Moles /volume] in Serum or PlasmaOrdered By: Zac Muniz on 05-31-2023 CO2 [Moles/Vol] 24.0 mmol/L 21.0-31.0 [facility] Chloride [Moles/volume] in S ace or PlasmaOrdered By: Zac Muniz on 05-31-2023 Chloride [Moles/Vol] 106 mmol/L 98-107 [facility] Color Auto (U)Ordered By: Marianna Arellano on 05-31-2023 Color (U) Yellow Yellow [facility] Creatinine [Mass/volume] in Serum or PlasmaOrdered By: Zac Muniz on 05-31-2023 Creatinine [Mass/Vol] 1.05 mg/dL 0.70-1.30 [facility] Eosinophils Auto (Bld) [#/Vo l]Ordered By: Christine Sanchez on 05-31-2023 Eosinophils (Bld) [#/Vol] 0.1 10*3/uL 0.0-0.45 [facility] Eosinophils/100 WBC Auto (Bl d)Ordered By: Christine Sanchez on 05-31-2023 Eosinophils/100 WBC (Bld) 1.4 % . [facility] Erythrocyte distribution wid th Auto (RBC) [Ratio]Ordered By: Christine Sanchez on 05-31-2023 Erythrocyte distribution width (RBC) [Ratio] 14.9 % 12.0-14.8 [facility] Erythrocyte sedimentation ra te by Photometric methodOrdered By: Christine Sanchez on 05-31-2023 ESR Photometric method (Bld) [Velocity] 6 mm/hr 0-19 [facility] Globulin Calc (S) [Mass/Vol] Ordered By: Zac Muniz on 05-31-2023 Globulin (S) [Mass/Vol] 2.3 g/dL [facility] Glucose [Mass/volume] in Ser um or PlasmaOrdered By: Zac Muniz on 05-31-2023 Glucose [Mass/Vol] 82 mg/dL 70-100 [facility] Comment on above: ADA recommended refe rence rangeRandom Glucose Reference Range is dependent on time and content of last meal. Glucose of more than 200 mg/dL in a nonstressed, ambulatory subject supports the diagnosis of Diabetes Mellitus. Hematocrit Auto (Bld) [Volum e fraction]Ordered By: Christine Sanchez on 05-31-2023 Hematocrit (Bld) [Volume fraction] 43.1 % 38.8-50.0 [facility] Hemoglobin [Mass/volume] in BloodOrdered By: Christine Sanchez on 05-31-2023 Hemoglobin (Bld) [Mass/Vol] 14.9 g/dL 13.0-17.0 [facility] Ketones Auto test strip (U) [Mass/Vol]Ordered By: Christine Sanchez on 05-31-2023 Ketones (U) [Mass/Vol] Trace Negative [facility] - UrinalysisOrder ed By: Christine Sanchez on 05-31-2023 Hyaline casts LM Ql (Urine sed) 0-8 [LPF] 0-8 [facility] Leukocytes [#/volume] correc nat for nucleated erythrocytes in Blood by Automated counOrdered By: Christine Sanchez on 05-31-2023 WBC corrected for nucl RBC Auto (Bld) [#/Vol] 5.5 10*3/uL 4.1-10.5 [facility] Lymphocytes Auto (Bld) [#/Vo l]Ordered By: Christine Sanchez on 05-31-2023 Lymphocytes (Bld) [#/Vol] 1.3 10*3/uL 1.00-4.8 [facility] Lymphocytes/100 WBC Auto (Bl d)Ordered By: Christine Sanchez on 05-31-2023 Lymphocytes/100 WBC (Bld) 24.3 % . [facility] MCH Auto (RBC) [Entitic mass ]Ordered By: Christine Sanchez on 05-31-2023 MCH (RBC) [Entitic mass] 30.8 pg 27.5-35.2 [facility] MCHC Auto (RBC) [Mass/Vol]Or dered By: Christine Sanchez on 05-31-2023 MCHC (RBC) [Mass/Vol] 34.6 g/dL 32.5-35.6 [facility] MCV Auto (RBC) [Entitic vol] Ordered By: Christine Sanchez on 05-31-2023 MCV (RBC) [Entitic vol] 89.1 fL 83.5-101 [facility] Monocytes Auto (Bld) [#/Vol] Ordered By: Christine Sanchez on 05-31-2023 Monocytes (Bld) [#/Vol] 0.7 10*3/uL 0.0-0.8 [facility] Monocytes/100 WBC Auto (Bld) Ordered By: Christine Sanchez on 05-31-2023 Monocytes/100 WBC (Bld) 12.9 % . [facility] Neutrophils Auto (Bld) [#/Vo l]Ordered By: Christine Sanchez on 05-31-2023 Neutrophils (Bld) [#/Vol] 3.3 10*3/uL 1.8-7.7 [facility] Neutrophils/100 WBC Auto (Bl d)Ordered By: Christine Sanchez on 05-31-2023 Neutrophils/100 WBC (Bld) 60.6 % . [facility] Nitrite Test strip Ql (U)Ord ered By: Christine Sanchez on 05-31-2023 Nitrite Ql (U) Negative Negative [facility] No Panel InformationOrdered By: Zac Muniz on 05-31-2023 Estimated GFR (CKD-EPI) > 60.0 mL/Min [facility] Creatinine Clearance (Chem N/A [facility] No Panel InformationOrdered By: Christine Sanchez on 05-31-2023 Total Complement (CH50) 60 U/mL >41 [facility] Comment on above: Age Male Female 3 [...] to determine out of range values.Performed at: [facility] [id number] Director: Richy Ardon PhD, Phone: [phone] Nucleated erythrocytes [Pres ence] in Blood by Automated countOrdered By: Christine Sanchez on 05-31-2023 Nucleated RBC Auto Ql (Bld) 0.1 /100{WBC} 0-0.5 [facility] Platelet mean volume Auto (B ld) [Entitic vol]Ordered By: Christine Sanchez on 05-31-2023 Platelet mean volume (Bld) [Entitic vol] 8.4 fL 6.6-10.1 [facility] Platelets Auto (Bld) [#/Vol] Ordered By: Christine Sanchez on 05-31-2023 Platelets (Bld) [#/Vol] 178 10*3/uL 150-450 [facility] Potassium [Moles/volume] in Serum or PlasmaOrdered By: Zac Muniz on 05-31-2023 Potassium [Moles/Vol] 4.4 mmol/L 3.5-5.1 [facility] Protein Auto test strip (U) [Mass/Vol]Ordered By: Christine Sanchez on 05-31-2023 Protein (U) [Mass/Vol] Trace mg/dL Negative [facility] Protein [Mass/volume] in Ser um or PlasmaOrdered By: Zac Muniz on 05-31-2023 Protein [Mass/Vol] 6.7 g/dL 6.4-8.9 [facility] RBC Auto (Bld) [#/Vol]Ordere d By: Christine Sanchez on 05-31-2023 RBC (Bld) [#/Vol] 4.84 10*6/uL 3.90-5.60 [facility] Serum or plasma albumin/glob ulin mass ratioOrdered By: Zac Muniz on 05-31-2023 Albumin/Globulin [Mass ratio] 1.9 {ratio} [facility] Serum or plasma anion gap de terminationOrdered By: Zac Muniz on 05-31-2023 Anion gap [Moles/Vol] 11.4 mmol/L 6.0-15.[address] [facility] Serum or plasma complement C 3 measurement (mass/volume)Ordered By: Christine Sanchez on 05-31-2023 Complement C3 [Mass/Vol] 132 mg/dL 82-167 [facility] Comment on above: Performed at: [address] [id number] Director: Richy Ardon PhD, Phone: [phone] Serum or plasma complement C 4 measurement (mass/volume)Ordered By: Christine Sanchez on 05-31-2023 Complement C4 [Mass/Vol] 16 mg/dL 12-38 [facility] Sodium [Moles/volume] in Ser um or PlasmaOrdered By: Zac Muniz on 05-31-2023 Sodium [Moles/Vol] 137 mmol/L 136-145 [facility] Specific gravity Auto test s trip (U) [Rel density]Ordered By: Christine Sanchez on 05-31-2023 Specific gravity (U) [Rel density] 1.023 1.001-1.03 0 [facility] Squamous epithelial cells de tection in urine sediment by light microscopyOrdered By: Christine Sanchez on 05-31-2023 Epithelial cells.squamous LM Ql (Urine sed) None seen [HPF] 0-2 [facility] Urea nitrogen [Mass/volume] in Serum or PlasmaOrdered By: Zac Muniz on 05-31-2023 Urea nitrogen [Mass/Vol] 28 mg/dL 7-25 [facility] Urine bacteria detection by automated methodOrdered By: Christine Sanchez on 05-31-2023 Bacteria Auto Ql (U) None seen None Seen [facility] Urine clarity by refractomet ry automatedOrdered By: Christine Sanchez on 05-31-2023 Clarity Refractometry automated (U) Clear Clear [facility] Urine glucose measurement by automated test strip (mass/volume)Ordered By: Christine Sanchez on 05-31-2023 Glucose Auto test strip (U) [Mass/Vol] Normal mg/dL Normal [facility] Urine hemoglobin detection b y automated test stripOrdered By: Christine Sanchez on 05-31-2023 Hemoglobin Auto test strip Ql (U) Negative Negative [facility] Urine leukocyte esterase det ection by automated test stripOrdered By: Christine Sanchez on 05-31-2023 Leukocyte esterase Auto test strip Ql (U) Negative Negative [facility] Urobilinogen Auto test strip (U) [Mass/Vol]Ordered By: Christine Sanchez on 05-31-2023 Urobilinogen (U) [Mass/Vol] Normal mg/dL Normal [facility] WBC Auto (Bld) [#/Vol]Ordere d By: Christine Sanchez on 05-31-2023 WBC (Bld) [#/Vol] 5.5 10*3/uL 4.1-10.5 [facility] pH Auto test strip (U)Ordere d By: Christine Sanchez on 05-31-2023 pH (U) 5.5 [pH] 5.0-9.0 [facility] Provider Letteron 05-20-2023 Provider Letter (Inserted Image. Nikki ble to display) May 20, 2023 VALENTIN TORRE [address] [place] [id number] : 1955 Dear Valentin Torre, We have been trying to reach you with no success. It is important that you return our call upon receiving this letter. Also, at the time of your call, please provide us with your current information. Thank you for your prompt attention to this matter. Sincerely, [facility] [address] [place] [address] [place], [place] [address] Normal [facility] Ammonium urate crystals dete ction in stone by infrared spectroscopyOrdered By: Zac Muniz on 05-18-2023 Ammonium urate crystals Infrared spectroscopy Ql (Stone) N/A [facility] Calcium bilirubinate measure mentOrdered By: Zac Muniz on 05-18-2023 Calcium bilirubinate (Stone) [Mass fraction] N/A [facility] Calcium carbonate measuremen tOrdered By: Zac Muniz on 05-18-2023 Calcium carbonate (Stone) [Mass fraction] N/A [facility] Calcium hydrogen phosphate d ihydrate/Total in StoneOrdered By: Zac Muniz on 05-18-2023 Calcium hydrogen phosphate dihydrate (Stone) [Mass fraction] N/A [facility] Calcium oxalate dihydrate cr ystals detection in stone by infrared spectroscopyOrdered By: Zac Muniz on 05-18-2023 Calcium oxalate dihydrate crystals Infrared spectroscopy Ql (Stone) N/A [facility] Calcium oxalate monohydrate/ Total in StoneOrdered By: Zac Muniz on 05-18-2023 Calcium oxalate monohydrate (Stone) [Mass fraction] N/A [facility] Calcium phosphate measuremen tOrdered By: Zac Muniz on 05-18-2023 Calcium phosphate (Stone) [Mass fraction] N/A [facility] Calculus analysis interpreta tion in stoneOrdered By: Zac Muniz on 05-18-2023 Calculus analysis [Interp] N/A [facility] Calculus analysis [Interp] See comment . [facility] Comment on above: Physician questions regarding Calculi Analysis contactLabCorp at: [phone]. Calculi report will follow via computer, mail or courierdelivery. Calculus analysis with calcu silva photography interpretation in stoneOrdered By: Zac Muniz on 05-18-2023 Calculus analysis with calculus photography [Interp] See comment . [facility] Comment on above: Photograph will foll ow under a separate cover Cellular material measuremen t in stone by estimated (mass/mass)Ordered By: Zac Muniz on 05-18-2023 Cellular material Est (Stone) [Mass/Mass] N/A [facility] Cholesterol/Total in StoneOr dered By: Zac Muniz on 05-18-2023 Cholesterol (Stone) [Mass fraction] N/A [facility] Composition of stoneOrdered By: Zac Muniz on 05-18-2023 Composition Nom (Stone) See comment . [facility] Comment on above: Percentage (Represen ts the % composition) Cystine measurementOrdered B y: Zac Muniz on 05-18-2023 Cystine (Unsp spec) [Moles/Vol] N/A [facility] Determination of color of ca lculusOrdered By: Zac Muniz on 05-18-2023 Color (Stone) Alexander . [facility] Hydroxyapatite [Energy Diffe rence] in 24 hour UrineOrdered By: Zac Muniz on 05-18-2023 Hydroxyapatite (24H U) [Energy diff] N/A [facility] Measurement of proportion of calculus composed of dried blood (mass/mass)Ordered By: Zac Muniz on 05-18-2023 Blood.dried (Stone) [Mass fraction] N/A [facility] Newberyite/Total in StoneOrd ered By: Zac Muniz on 05-18-2023 Newberyite (Stone) [Mass fraction] N/A [facility] No Panel InformationOrdered By: Zac Muniz on 05-18-2023 Stone 2,8 Dihydroxyadenine N/A [facility] Stone Analysis Disclaimer See comment . [facility] Comment on above: This test was develo ped and its performance characteristicsdetermined by [facility]. It has not been cleared or approvedby the Food and Drug Administration.Performed at: [facility] [id number] Director: Jimmy Warner PhD, Phone: [phone] Stone Bilirubinate N/A [facility] Stone Calcium Palmitate N/A [facility] Stone Calcium Stearate N/A [facility] Stone Carbonate Apatite N/A [facility] Stone Drug or Metabolite N/A [facility] Stone Other Constituent N/A [facility] Stone Xanthine N/A [facility] Size [Entitic volume] of Sto neOrdered By: Zac Muniz on 05-18-2023 Size (Stone) [Entitic vol] 4x4 mm . [facility] Comment on above: Multiple pieces rece ived. Dimensions of the largest piecereported. Sodium urate crystals detect ion in stone by infrared spectroscopyOrdered By: Zac Muniz on 05-18-2023 Sodium urate crystals Infrared spectroscopy Ql (Stone) N/A [facility] Specimen source subject [Typ e]Ordered By: Zac Muniz on 05-18-2023 Specimen source subject Nom See comment . [facility] Comment on above: Not provided Triamterene measurement in c alculusOrdered By: Zac Muniz on 05-18-2023 Triamterene (Stone) [Mass fraction] N/A [facility] Triple phosphate/Total in St oneOrdered By: Zac Muniz on 05-18-2023 Triple phosphate (Stone) [Mass fraction] N/A [facility] Uric acid dihydrate crystals detection in stone by infrared spectroscopyOrdered By: Zac Muniz on 05-18-2023 Urate dihydrate crystals Infrared spectroscopy Ql (Stone) 100 % . [facility] Urate dihydrate crystals Infrared spectroscopy Ql (Stone) N/A [facility] Tobacco Screening.on 023 Adult depression screening assessment No [facility] LS9 manda 250 DO Work Phone: Fall risk assessment a) No falls within the last year [facility] Neuro Hero 250 DO Work Phone: Tobacco use status CPHS b) No [facility] LS9 manda 250 DO Work Phone: Automated erythrocytes count in urine sediment (number/area)Ordered By: Romel Orta on 05-07-2023 RBC Auto (Urine sed) [#/Area] 1-2 [HPF] 0-4 [facility] Automated leukocytes count i n urine sediment (number/area)Ordered By: Romel Orta on 05-07-2023 WBC Auto (Urine sed) [#/Area] 3-4 [HPF] 0-4 [facility] Basophils Auto (Bld) [#/Vol] Ordered By: Romel Orta on 05-07-2023 Basophils (Bld) [#/Vol] 0.1 10*3/uL 0.0-0.2 [facility] Basophils/100 WBC Auto (Bld) Ordered By: Romel Orta on 05-07-2023 Basophils/100 WBC (Bld) 0.6 % . [facility] Bilirubin Test strip Ql (U)O rdered By: Romel Orta on 05-07-2023 Bilirubin Ql (U) Negative Negative [facility] Calcium [Mass/volume] in Ser um or PlasmaOrdered By: Romel Orta on 05-07-2023 Calcium [Mass/Vol] 8.8 mg/dL 8.6-10.3 [facility] Carbon dioxide, total [Moles /volume] in Serum or PlasmaOrdered By: Romel Orta on 05-07-2023 CO2 [Moles/Vol] 20.8 mmol/L 21.0-31.0 [facility] Chloride [Moles/volume] in S ace or PlasmaOrdered By: Romel Orta on 05-07-2023 Chloride [Moles/Vol] 105 mmol/L 98-107 [facility] Color Auto (U)Ordered By: Bridgett Orta on 05-07-2023 Color (U) Yellow Yellow [facility] Creatinine [Mass/volume] in Serum or PlasmaOrdered By: Romel Orta on 05-07-2023 Creatinine [Mass/Vol] 1.94 mg/dL 0.70-1.30 [facility] Eosinophils Auto (Bld) [#/Vo l]Ordered By: Romel Orta on 05-07-2023 Eosinophils (Bld) [#/Vol] 0.1 10*3/uL 0.0-0.45 [facility] Eosinophils/100 WBC Auto (Bl d)Ordered By: Romel Orta on 05-07-2023 Eosinophils/100 WBC (Bld) 1.1 % . [facility] Erythrocyte distribution wid th Auto (RBC) [Ratio]Ordered By: Romel Orta on 05-07-2023 Erythrocyte distribution width (RBC) [Ratio] 14.3 % 12.0-14.8 [facility] Glucose [Mass/volume] in Ser um or PlasmaOrdered By: Romel Orta on 05-07-2023 Glucose [Mass/Vol] 98 mg/dL 70-100 [facility] Comment on above: ADA recommended refe rence rangeRandom Glucose Reference Range is dependent on time and content of last meal. Glucose of more than 200 mg/dL in a nonstressed, ambulatory subject supports the diagnosis of Diabetes Mellitus. Hematocrit Auto (Bld) [Volum e fraction]Ordered By: Romel Orta on 05-07-2023 Hematocrit (Bld) [Volume fraction] 38.9 % 38.8-50.0 [facility] Hemoglobin [Mass/volume] in BloodOrdered By: Romel Orta on 05-07-2023 Hemoglobin (Bld) [Mass/Vol] 13.7 g/dL 13.0-17.0 [facility] Ketones Auto test strip (U) [Mass/Vol]Ordered By: Romel Orta on 05-07-2023 Ketones (U) [Mass/Vol] Trace Negative [facility] - UrinalysisOrder ed By: Romel Orta on 05-07-2023 Hyaline casts LM Ql (Urine sed) 0-8 [LPF] 0-8 [facility] Leukocytes [#/volume] correc nat for nucleated erythrocytes in Blood by Automated counOrdered By: Romel Orta on 05-07-2023 WBC corrected for nucl RBC Auto (Bld) [#/Vol] 9.9 10*3/uL 4.1-10.5 [facility] Lymphocytes Auto (Bld) [#/Vo l]Ordered By: Romel Orta on 05-07-2023 Lymphocytes (Bld) [#/Vol] 0.6 10*3/uL 1.00-4.8 [facility] Lymphocytes/100 WBC Auto (Bl d)Ordered By: Romel Orta on 05-07-2023 Lymphocytes/100 WBC (Bld) 6.2 % . [facility] MCH Auto (RBC) [Entitic mass ]Ordered By: Romel Orta on 05-07-2023 MCH (RBC) [Entitic mass] 31.3 pg 27.5-35.2 [facility] MCHC Auto (RBC) [Mass/Vol]Or dered By: Romel Orta on 05-07-2023 MCHC (RBC) [Mass/Vol] 35.2 g/dL 32.5-35.6 [facility] MCV Auto (RBC) [Entitic vol] Ordered By: Romel Orta on 05-07-2023 MCV (RBC) [Entitic vol] 88.9 fL 83.5-101 [facility] Monocyte distribution width [Entitic volume] in Blood by AutomatedOrdered By: Romel Orta on 05-07-2023 Monocyte distribution width Auto (Bld) [Entitic vol] 22.82 % 0.00-20.00 [facility] Comment on above: For adults in ED, MD W > 20.0 may be associated with a higher risk of sepsis during the first 12 hrs of hospital admission Monocytes Auto (Bld) [#/Vol] Ordered By: Romel Orta on 05-07-2023 Monocytes (Bld) [#/Vol] 1.5 10*3/uL 0.0-0.8 [facility] Monocytes/100 WBC Auto (Bld) Ordered By: Romel Orta on 05-07-2023 Monocytes/100 WBC (Bld) 15.4 % . [facility] Neutrophils Auto (Bld) [#/Vo l]Ordered By: Romel Orta on 05-07-2023 Neutrophils (Bld) [#/Vol] 7.6 10*3/uL 1.8-7.7 [facility] Neutrophils/100 WBC Auto (Bl d)Ordered By: Romel Orta on 05-07-2023 Neutrophils/100 WBC (Bld) 76.7 % . [facility] Nitrite Test strip Ql (U)Ord ered By: Romel Orta on 05-07-2023 Nitrite Ql (U) Negative Negative [facility] No Panel InformationOrdered By: Romel Orta on 05-07-2023 Estimated GFR (CKD-EPI) 37.476 mL/Min [facility] Creatinine Clearance (Chem 41.86 [facility] Nucleated erythrocytes [Pres ence] in Blood by Automated countOrdered By: Romel Orta on 05-07-2023 Nucleated RBC Auto Ql (Bld) 0.1 /100{WBC} 0-0.5 [facility] Platelet mean volume Auto (B ld) [Entitic vol]Ordered By: Romel Orta on 05-07-2023 Platelet mean volume (Bld) [Entitic vol] 8.3 fL 6.6-10.1 [facility] Platelets Auto (Bld) [#/Vol] Ordered By: Romel Orta on 05-07-2023 Platelets (Bld) [#/Vol] 193 10*3/uL 150-450 [facility] Potassium [Moles/volume] in Serum or PlasmaOrdered By: Romel Orta on 05-07-2023 Potassium [Moles/Vol] 4.2 mmol/L 3.5-5.1 [facility] Protein Auto test strip (U) [Mass/Vol]Ordered By: Romel Orta on 05-07-2023 Protein (U) [Mass/Vol] Negative Negative [facility] RBC Auto (Bld) [#/Vol]Ordere d By: Romel Orta on 05-07-2023 RBC (Bld) [#/Vol] 4.38 10*6/uL 3.90-5.60 [facility] Serum or plasma anion gap de terminationOrdered By: Romel Orta on 05-07-2023 Anion gap [Moles/Vol] 15.4 mmol/L 6.0-15.[address] [facility] Sodium [Moles/volume] in Ser um or PlasmaOrdered By: Romel Orta on 05-07-2023 Sodium [Moles/Vol] 137 mmol/L 136-145 [facility] Specific gravity Auto test s trip (U) [Rel density]Ordered By: Romel Orta on 05-07-2023 Specific gravity (U) [Rel density] 1.028 1.001-1.03 0 [facility] Squamous epithelial cells de tection in urine sediment by light microscopyOrdered By: Romel Orta on 05-07-2023 Epithelial cells.squamous LM Ql (Urine sed) 0-1 [HPF] 0-2 [facility] Urea nitrogen [Mass/volume] in Serum or PlasmaOrdered By: Romel Orta on 05-07-2023 Urea nitrogen [Mass/Vol] 34 mg/dL 7-25 [facility] Urine bacteria detection by automated methodOrdered By: Romel Orta on 05-07-2023 Bacteria Auto Ql (U) None seen None Seen [facility] Urine clarity by refractomet ry automatedOrdered By: Romel Orta on 05-07-2023 Clarity Refractometry automated (U) Cloudy Clear [facility] Urine glucose measurement by automated test strip (mass/volume)Ordered By: Romel Orta on 05-07-2023 Glucose Auto test strip (U) [Mass/Vol] Normal mg/dL Normal [facility] Urine hemoglobin detection b y automated test stripOrdered By: Romel Orta on 05-07-2023 Hemoglobin Auto test strip Ql (U) Negative Negative [facility] Urine leukocyte esterase det ection by automated test stripOrdered By: Romel Orta on 05-07-2023 Leukocyte esterase Auto test strip Ql (U) Negative Negative [facility] Urine sediment crystal ident ification by light microscopyOrdered By: Romel Orta on 05-07-2023 Crystals LM Nom (Urine sed) N/A [facility] Urobilinogen Auto test strip (U) [Mass/Vol]Ordered By: Romel Orta on 05-07-2023 Urobilinogen (U) [Mass/Vol] Normal mg/dL Normal [facility] WBC Auto (Bld) [#/Vol]Ordere d By: Romel Orta on 05-07-2023 WBC (Bld) [#/Vol] 9.9 10*3/uL 4.1-10.5 [facility] pH Auto test strip (U)Ordere d By: Romel Orta on 05-07-2023 pH (U) 5.0 [pH] 5.0-9.0 [facility] Alanine aminotransferase [En zymatic activity/volume] in Serum or PlasmaOrdered By: Edenilson Reinoso on 05-03-2023 ALT [Catalytic activity/Vol] 44 U/L 7-52 [facility] Albumin [Mass/volume] in Ser um or Plasma by Bromocresol green (BCG) dye binding methoOrdered By: Edenilson Reinoso on 05-03-2023 Albumin BCG dye [Mass/Vol] 4.4 g/dL 3.5-5.7 [facility] Alkaline phosphatase [Enzyma tic activity/volume] in Serum or PlasmaOrdered By: Edenilson Reinoso on 05-03-2023 ALP [Catalytic activity/Vol] 79 U/L 34-104 [facility] Aspartate aminotransferase [ Enzymatic activity/volume] in Serum or PlasmaOrdered By: Edenilson Reinoso on 05-03-2023 AST [Catalytic activity/Vol] 28 U/L 13-39 [facility] Automated erythrocytes count in urine sediment (number/area)Ordered By: Edenilson Reinoso on 05-03-2023 RBC Auto (Urine sed) [#/Area] 10-19 [HPF] 0-4 [facility] Automated leukocytes count i n urine sediment (number/area)Ordered By: Edenilson Reinoso on 05-03-2023 WBC Auto (Urine sed) [#/Area] 0-1 [HPF] 0-4 [facility] Basophils Auto (Bld) [#/Vol] Ordered By: Edenilson Reinoso on 05-03-2023 Basophils (Bld) [#/Vol] 0.0 10*3/uL 0.0-0.2 [facility] Basophils/100 WBC Auto (Bld) Ordered By: Edenilson Reinoso on 05-03-2023 Basophils/100 WBC (Bld) 0.3 % . [facility] Bilirubin Test strip Ql (U)O rdered By: Edenilson Reinoso on 05-03-2023 Bilirubin Ql (U) Negative Negative [facility] Bilirubin.direct [Mass/volum e] in Serum or PlasmaOrdered By: Edenilson Reinoso on 05-03-2023 Bilirubin.direct [Mass/Vol] 0.20 mg/dL 0.03-0.18 [facility] Bilirubin.total [Mass/volume ] in Serum or PlasmaOrdered By: Edenilson Reinoso on 05-03-2023 Bilirubin [Mass/Vol] 1.0 mg/dL 0.3-1.0 [facility] Calcium [Mass/volume] in Ser um or PlasmaOrdered By: Edenilson Reinoso on 05-03-2023 Calcium [Mass/Vol] 9.2 mg/dL 8.6-10.3 [facility] Carbon dioxide, total [Moles /volume] in Serum or PlasmaOrdered By: Edenilson Reinoso on 05-03-2023 CO2 [Moles/Vol] 21.3 mmol/L 21.0-31.0 [facility] Chloride [Moles/volume] in S ace or PlasmaOrdered By: Edenilson Reinoso on 05-03-2023 Chloride [Moles/Vol] 105 mmol/L 98-107 [facility] Color Auto (U)Ordered By: Chen Reinoso on 05-03-2023 Color (U) Yellow Yellow [facility] Creatinine [Mass/volume] in Serum or PlasmaOrdered By: Edenilson Reinoso on 05-03-2023 Creatinine [Mass/Vol] 1.51 mg/dL 0.70-1.30 [facility] Eosinophils Auto (Bld) [#/Vo l]Ordered By: Edenilson Reinoso on 05-03-2023 Eosinophils (Bld) [#/Vol] 0.0 10*3/uL 0.0-0.45 [facility] Eosinophils/100 WBC Auto (Bl d)Ordered By: Edenilson Reinoso on 05-03-2023 Eosinophils/100 WBC (Bld) 0.3 % . [facility] Erythrocyte distribution wid th Auto (RBC) [Ratio]Ordered By: Edenilson Reinoso on 05-03-2023 Erythrocyte distribution width (RBC) [Ratio] 14.9 % 12.0-14.8 [facility] Globulin Calc (S) [Mass/Vol] Ordered By: Edenilson Reinoso on 05-03-2023 Globulin (S) [Mass/Vol] 2.3 g/dL [facility] Glucose [Mass/volume] in Ser um or PlasmaOrdered By: Edenilson Reinoso on 05-03-2023 Glucose [Mass/Vol] 107 mg/dL 70-100 [facility] Comment on above: ADA recommended refe rence rangeRandom Glucose Reference Range is dependent on time and content of last meal. Glucose of more than 200 mg/dL in a nonstressed, ambulatory subject supports the diagnosis of Diabetes Mellitus. Hematocrit Auto (Bld) [Volum e fraction]Ordered By: Edenilson Reinoso on 05-03-2023 Hematocrit (Bld) [Volume fraction] 44.5 % 38.8-50.0 [facility] Hemoglobin [Mass/volume] in BloodOrdered By: Edenilson Reinoso on 05-03-2023 Hemoglobin (Bld) [Mass/Vol] 15.7 g/dL 13.0-17.0 [facility] Ketones Auto test strip (U) [Mass/Vol]Ordered By: Edenilson Reinoso on 05-03-2023 Ketones (U) [Mass/Vol] Trace Negative [facility] Laboratory - UrinalysisOrder ed By: Edenilson Reinoso on 05-03-2023 Hyaline casts LM Ql (Urine sed) 0-8 [LPF] 0-8 [facility] Leukocytes [#/volume] correc nat for nucleated erythrocytes in Blood by Automated counOrdered By: Edenilson Reinoso on 05-03-2023 WBC corrected for nucl RBC Auto (Bld) [#/Vol] 13.4 10*3/uL 4.1-10.5 [facility] Lipase [Enzymatic activity/v olume] in Serum or PlasmaOrdered By: Edenilson Reinoso on 05-03-2023 Lipase [Catalytic activity/Vol] 28.0 U/L 11.0-82.0 [facility] Lymphocytes Auto (Bld) [#/Vo l]Ordered By: Edeinlson Reinoso on 05-03-2023 Lymphocytes (Bld) [#/Vol] 0.6 10*3/uL 1.00-4.8 [facility] Lymphocytes/100 WBC Auto (Bl d)Ordered By: Edenilson Reinoso on 05-03-2023 Lymphocytes/100 WBC (Bld) 4.3 % . [facility] MCH Auto (RBC) [Entitic mass ]Ordered By: Edenilson Reinoso on 05-03-2023 MCH (RBC) [Entitic mass] 31.1 pg 27.5-35.2 [facility] MCHC Auto (RBC) [Mass/Vol]Or dered By: Edenilson Reinoso on 05-03-2023 MCHC (RBC) [Mass/Vol] 35.4 g/dL 32.5-35.6 [facility] MCV Auto (RBC) [Entitic vol] Ordered By: Edenilson Reinoso on 05-03-2023 MCV (RBC) [Entitic vol] 87.9 fL 83.5-101 [facility] Monocyte distribution width [Entitic volume] in Blood by AutomatedOrdered By: Edenilson Reinoso on 05-03-2023 Monocyte distribution width Auto (Bld) [Entitic vol] 24.56 % 0.00-20.00 [facility] Comment on above: For adults in ED, MD W > 20.0 may be associated with a higher risk of sepsis during the first 12 hrs of hospital admission Monocytes Auto (Bld) [#/Vol] Ordered By: Edenilson Reinoso on 05-03-2023 Monocytes (Bld) [#/Vol] 1.5 10*3/uL 0.0-0.8 [facility] Monocytes/100 WBC Auto (Bld) Ordered By: Edenilson Reinoso on 05-03-2023 Monocytes/100 WBC (Bld) 11.0 % . [facility] Neutrophils Auto (Bld) [#/Vo l]Ordered By: Edenilson Reinoso on 05-03-2023 Neutrophils (Bld) [#/Vol] 11.3 10*3/uL 1.8-7.7 [facility] Neutrophils/100 WBC Auto (Bl d)Ordered By: Edenilson Reinoso on 05-03-2023 Neutrophils/100 WBC (Bld) 84.1 % . [facility] Nitrite Test strip Ql (U)Ord ered By: Edenilson Reinoso on 05-03-2023 Nitrite Ql (U) Negative Negative [facility] No Panel InformationOrdered By: Edenilson Reinoso on 05-03-2023 Estimated GFR (CKD-EPI) 50.623 mL/Min [facility] Creatinine Clearance (Chem 54.49 [facility] Nucleated erythrocytes [Pres ence] in Blood by Automated countOrdered By: Edenilson Reinoso on 05-03-2023 Nucleated RBC Auto Ql (Bld) 0.1 /100{WBC} 0-0.5 [facility] Platelet mean volume Auto (B ld) [Entitic vol]Ordered By: Edenilson Reinoso on 05-03-2023 Platelet mean volume (Bld) [Entitic vol] 8.4 fL 6.6-10.1 [facility] Platelets Auto (Bld) [#/Vol] Ordered By: Edenilson Reinoso on 05-03-2023 Platelets (Bld) [#/Vol] 185 10*3/uL 150-450 [facility] Potassium [Moles/volume] in Serum or PlasmaOrdered By: Edenilson Reinoso on 05-03-2023 Potassium [Moles/Vol] 4.1 mmol/L 3.5-5.1 [facility] Protein Auto test strip (U) [Mass/Vol]Ordered By: Edenilson Reinoso on 05-03-2023 Protein (U) [Mass/Vol] Trace mg/dL Negative [facility] Protein [Mass/volume] in Ser um or PlasmaOrdered By: Edenilson Reinoso on 05-03-2023 Protein [Mass/Vol] 6.7 g/dL 6.4-8.9 [facility] RBC Auto (Bld) [#/Vol]Ordere d By: Edenilson Reinoso on 05-03-2023 RBC (Bld) [#/Vol] 5.06 10*6/uL 3.90-5.60 [facility] Serum or plasma albumin/glob ulin mass ratioOrdered By: Edenilson Reinoso on 05-03-2023 Albumin/Globulin [Mass ratio] 1.9 {ratio} [facility] Serum or plasma anion gap de terminationOrdered By: Edenilson Reinoso on 05-03-2023 Anion gap [Moles/Vol] 13.8 mmol/L 6.0-15.[address] [facility] Serum or plasma non-glucuron idated bilirubin measurement (mass/volume)Ordered By: Edenilson Reinoso on 05-03-2023 Bilirubin.indirect [Mass/Vol] 0.8 mg/dL [facility] Sodium [Moles/volume] in Ser um or PlasmaOrdered By: Edenilson Reinoso on 05-03-2023 Sodium [Moles/Vol] 136 mmol/L 136-145 [facility] Specific gravity Auto test s trip (U) [Rel density]Ordered By: Edenilson Reinoso on 05-03-2023 Specific gravity (U) [Rel density] 1.024 1.001-1.03 0 [facility] Squamous epithelial cells de tection in urine sediment by light microscopyOrdered By: Edenilson Reinoso on 05-03-2023 Epithelial cells.squamous LM Ql (Urine sed) None seen [HPF] 0-2 [facility] Urea nitrogen [Mass/volume] in Serum or PlasmaOrdered By: Edenilson Reinoso on 05-03-2023 Urea nitrogen [Mass/Vol] 22 mg/dL 7-25 [facility] Urine bacteria detection by automated methodOrdered By: Edenilson Reinoso on 05-03-2023 Bacteria Auto Ql (U) None seen None Seen [facility] Urine clarity by refractomet ry automatedOrdered By: Edenilson Reinoso on 05-03-2023 Clarity Refractometry automated (U) Clear Clear [facility] Urine glucose measurement by automated test strip (mass/volume)Ordered By: Edenilson Reinoso on 05-03-2023 Glucose Auto test strip (U) [Mass/Vol] Normal mg/dL Normal [facility] Urine hemoglobin detection b y automated test stripOrdered By: Edenilson Reinoso on 05-03-2023 Hemoglobin Auto test strip Ql (U) 1+ Negative [facility] Urine leukocyte esterase det ection by automated test stripOrdered By: Edenilson Reinoso on 05-03-2023 Leukocyte esterase Auto test strip Ql (U) 1+ Negative [facility] Urobilinogen Auto test strip (U) [Mass/Vol]Ordered By: Edenilson Reinoso on 05-03-2023 Urobilinogen (U) [Mass/Vol] Normal mg/dL Normal [facility] WBC Auto (Bld) [#/Vol]Ordere d By: Edenilson Reinoso on 05-03-2023 WBC (Bld) [#/Vol] 13.4 10*3/uL 4.1-10.5 [facility] pH Auto test strip (U)Ordere d By: Edenilson Reinoso on 05-03-2023 pH (U) 5.5 [pH] 5.0-9.0 [facility] Alanine aminotransferase [En zymatic activity/volume] in Serum or PlasmaOrdered By: Sascha Sutton on 04-08-2023 ALT [Catalytic activity/Vol] 33 U/L 7-52 [facility] Albumin [Mass/volume] in Ser um or Plasma by Bromocresol green (BCG) dye binding methoOrdered By: Sascha Sutton on 04-08-2023 Albumin BCG dye [Mass/Vol] 4.0 g/dL 3.5-5.7 [facility] Alkaline phosphatase [Enzyma tic activity/volume] in Serum or PlasmaOrdered By: Sascha Sutton on 04-08-2023 ALP [Catalytic activity/Vol] 82 U/L 34-104 [facility] Aspartate aminotransferase [ Enzymatic activity/volume] in Serum or PlasmaOrdered By: Sascha Sutton 04-08-2023 AST [Catalytic activity/Vol] 19 U/L 13-39 [facility] Bilirubin.total [Mass/volume ] in Serum or PlasmaOrdered By: Sascha Sutton 04-08-2023 Bilirubin [Mass/Vol] 0.8 mg/dL 0.3-1.0 [facility] Calcium [Mass/volume] in Ser um or PlasmaOrdered By: Sascha Sutton 04-08-2023 Calcium [Mass/Vol] 8.8 mg/dL 8.6-10.3 [facility] Carbon dioxide, total [Moles /volume] in Serum or PlasmaOrdered By: Sascha Sutton 04-08-2023 CO2 [Moles/Vol] 28.1 mmol/L 21.0-31.0 [facility] Chloride [Moles/volume] in S ace or PlasmaOrdered By: Sascah Sutton 04-08-2023 Chloride [Moles/Vol] 107 mmol/L 98-107 [facility] Cholesterol [Mass/volume] in Serum or PlasmaOrdered By: Sascha Sutton 04-08-2023 Cholesterol [Mass/Vol] 119 mg/dL 140-[address] [facility] Comment on above: Chol less than 200 m g/dl low riskChol 201-239 mg/dl borderline riskChol 240 mg/dl and greater high risk Cholesterol in LDL Calc [Mas s/Vol]Ordered By: Sascha Sutton on 04-08-2023 Cholesterol in LDL [Mass/Vol] 55 mg/dL 0-100 [facility] Comment on above: LDL ATP III CLASSIFI CATIONLDL less than 100 mg/dL OptimalLDL 100-129 mg/dL Near or above optimalLDL 130-159 mg/dL Borderline highLDL 160-189 mg/dL HighLDL greater than 189 mg/dL Very high Cholesterol in VLDL Calc [Ma ss/Vol]Ordered By: Sascha Sutton on 04-08-2023 Cholesterol in VLDL [Mass/Vol] 25 mg/dL [facility] Creatinine [Mass/volume] in Serum or PlasmaOrdered By: Sascha Sutton on 04-08-2023 Creatinine [Mass/Vol] 0.85 mg/dL 0.70-1.30 [facility] Globulin Calc (S) [Mass/Vol] Ordered By: Sascha Sutton on 04-08-2023 Globulin (S) [Mass/Vol] 2.1 g/dL [facility] Glucose [Mass/volume] in Ser um or PlasmaOrdered By: Sascha Sutton on 04-08-2023 Glucose [Mass/Vol] 85 mg/dL 70-100 [facility] Comment on above: ADA recommended refe rence rangeRandom Glucose Reference Range is dependent on time and content of last meal. Glucose of more than 200 mg/dL in a nonstressed, ambulatory subject supports the diagnosis of Diabetes Mellitus. No Panel InformationOrdered By: Sascha Sutton on 04-08-2023 Estimated GFR (CKD-EPI) > 60.0 mL/Min [facility] Creatinine Clearance (Chem N/A [facility] Potassium [Moles/volume] in Serum or PlasmaOrdered By: Sascha Sutton 04-08-2023 Potassium [Moles/Vol] 4.1 mmol/L 3.5-5.1 [facility] Prostate specific Ag [Mass/v olume] in Serum or PlasmaOrdered By: Sascha Sutton 04-08-2023 Prostate specific Ag [Mass/Vol] 1.770 ng/mL 0.000-4.00 0 [facility] Protein [Mass/volume] in Ser um or PlasmaOrdered By: Sascha Sutton on 04-08-2023 Protein [Mass/Vol] 6.1 g/dL 6.4-8.9 [facility] Serum or plasma albumin/glob ulin mass ratioOrdered By: Sascha Sutton on 04-08-2023 Albumin/Globulin [Mass ratio] 1.9 {ratio} [facility] Serum or plasma anion gap de terminationOrdered By: Sascha Sutton on 04-08-2023 Anion gap [Moles/Vol] 9.0 mmol/L 6.0-15.0 [facility] Serum or plasma high density lipoprotein (HDL) cholesterol measurementOrdered By: Sascha Sutton 04-08-2023 Cholesterol in HDL [Mass/Vol] 39 mg/dL 29- [facility] Comment on above: HDL CHOL ATP-III CLA SSIFICATION Cardiovascular RiskHDL > or equal to 60 mg/dL LOWHDL < 40 mg/dL HIGH Serum or plasma total choles terol/high density lipoprotein (HDL) cholesterol mass ratOrdered By: Sascha Sutton on 04-08-2023 Cholesterol.total/Chol esterol in HDL [Mass ratio] 3.1 {ratio} <5.0 [facility] Sodium [Moles/volume] in Ser um or PlasmaOrdered By: Sascha Sutton 04-08-2023 Sodium [Moles/Vol] 140 mmol/L 136-145 [facility] Triglyceride [Mass/volume] i n Serum or PlasmaOrdered By: Sascha Sutton 04-08-2023 Triglyceride [Mass/Vol] 125 mg/dL 0-149 [facility] Comment on above: TRIG ATP III CLASSIF ICATIONTRIG less than 150 mg/dL NormalTRIG 150-199 mg/dL Borderline highTRIG 200-500 mg/dL High TRIG greater than 500 mg/dL Very highStandard traceable to the Center for Disease Conrtrol and Prevention (CDC) test method. Urea nitrogen [Mass/volume] in Serum or PlasmaOrdered By: Sascha Sutton on 04-08-2023 Urea nitrogen [Mass/Vol] 17 mg/dL 7-25 [facility] Activated partial thrombopla stin time (aPTT) in platelet poor plasma by coagulation aOrdered By: Melanie Trujillo on 03-31-2023 aPTT Coag (PPP) [Time] 39.0 s 25.1-36.[address] [facility] Basophils Auto (Bld) [#/Vol] Ordered By: Melanie Trujillo on 03-31-2023 Basophils (Bld) [#/Vol] 0.0 10*3/uL 0.0-0.2 [facility] Basophils/100 WBC Auto (Bld) Ordered By: Melanie Trujillo on 03-31-2023 Basophils/100 WBC (Bld) 0.6 % . [facility] Carbon dioxide, total [Moles /volume] in Serum or PlasmaOrdered By: Melanie Trujillo on 03-31-2023 CO2 [Moles/Vol] 26.4 mmol/L 21.0-31.0 [facility] Chloride [Moles/volume] in S ace or PlasmaOrdered By: Melanie Trujillo on 03-31-2023 Chloride [Moles/Vol] 106 mmol/L 98-107 [facility] Cholesterol [Mass/volume] in Serum or PlasmaOrdered By: Melanie Trujillo on 03-31-2023 Cholesterol [Mass/Vol] 132 mg/dL 140-[address] [facility] Comment on above: Chol less than 200 m g/dl low riskChol 201-239 mg/dl borderline riskChol 240 mg/dl and greater high risk Cholesterol in LDL Calc [Mas s/Vol]Ordered By: Melanie Trujillo on 03-31-2023 Cholesterol in LDL [Mass/Vol] 71 mg/dL 0-100 [facility] Comment on above: LDL ATP III CLASSIFI CATIONLDL less than 100 mg/dL OptimalLDL 100-129 mg/dL Near or above optimalLDL 130-159 mg/dL Borderline highLDL 160-189 mg/dL HighLDL greater than 189 mg/dL Very high Cholesterol in VLDL Calc [Ma ss/Vol]Ordered By: Melanie Trujillo on 03-31-2023 Cholesterol in VLDL [Mass/Vol] 21 mg/dL [facility] Creatinine [Mass/volume] in Serum or PlasmaOrdered By: Melanie Trujillo on 03-31-2023 Creatinine [Mass/Vol] 0.88 mg/dL 0.70-1.30 [facility] Eosinophils Auto (Bld) [#/Vo l]Ordered By: Melanie Trujillo on 03-31-2023 Eosinophils (Bld) [#/Vol] 0.1 10*3/uL 0.0-0.45 [facility] Eosinophils/100 WBC Auto (Bl d)Ordered By: Melanie Trujillo on 03-31-2023 Eosinophils/100 WBC (Bld) 1.6 % . [facility] Erythrocyte distribution wid th Auto (RBC) [Ratio]Ordered By: Mleanie Trujillo on 03-31-2023 Erythrocyte distribution width (RBC) [Ratio] 14.5 % 12.0-14.8 [facility] Hematocrit Auto (Bld) [Volum e fraction]Ordered By: Melanie Trujillo on 03-31-2023 Hematocrit (Bld) [Volume fraction] 46.7 % 38.8-50.0 [facility] Hemoglobin [Mass/volume] in BloodOrdered By: Melanie Trujillo on 03-31-2023 Hemoglobin (Bld) [Mass/Vol] 16.0 g/dL 13.0-17.0 [facility] Laboratory - Chemistry and C hemistry - challengeon 03-31-2023 Cholesterol [Mass/Vol] 132\S\132 below low threshold 140-200 [facility] manda [facility] DO Work Phone: Comment on above: Chol less than 200 m g/dl low risk Chol 201-239 mg/dl borderline risk Chol 240 mg/dl and greater high risk Cholesterol in LDL [Mass/Vol] 71\S\71 Normal 0-[facility] Work Phone: Comment on above: LDL ATP III CLASSIFI CATION LDL less than 100 mg/dL Optimal LDL 100-129 mg/dL Near or above optimal LDL 130-159 mg/dL Borderline high LDL 160-189 mg/dL High LDL greater than 189 mg/dL Very high Laboratory - CoagulationOrde red By: Melanie Trujillo on 03-31-2023 PT Coag (PPP) [Time] 12.3 s 9.0-12.9 [facility] Leukocytes [#/volume] correc nat for nucleated erythrocytes in Blood by Automated counOrdered By: Melanie Trujillo on 03-31-2023 WBC corrected for nucl RBC Auto (Bld) [#/Vol] 5.7 10*3/uL 4.1-10.5 [facility] Lymphocytes Auto (Bld) [#/Vo l]Ordered By: Melanie Trujillo on 03-31-2023 Lymphocytes (Bld) [#/Vol] 0.8 10*3/uL 1.00-4.8 [facility] Lymphocytes/100 WBC Auto (Bl d)Ordered By: Melanie Trujillo on 03-31-2023 Lymphocytes/100 WBC (Bld) 13.8 % . [facility] MCH Auto (RBC) [Entitic mass ]Ordered By: Melanie Trujillo on 03-31-2023 MCH (RBC) [Entitic mass] 30.4 pg 27.5-35.2 [facility] MCHC Auto (RBC) [Mass/Vol]Or dered By: Melanie Trujillo on 03-31-2023 MCHC (RBC) [Mass/Vol] 34.2 g/dL 32.5-35.6 [facility] MCV Auto (RBC) [Entitic vol] Ordered By: Melanie Trujillo on 03-31-2023 MCV (RBC) [Entitic vol] 89.0 fL 83.5-101 [facility] Monocytes Auto (Bld) [#/Vol] Ordered By: Melanie Trujillo on 03-31-2023 Monocytes (Bld) [#/Vol] 0.8 10*3/uL 0.0-0.8 [facility] Monocytes/100 WBC Auto (Bld) Ordered By: Melanie Trujillo on 03-31-2023 Monocytes/100 WBC (Bld) 13.9 % . [facility] Neutrophils Auto (Bld) [#/Vo l]Ordered By: Melanie Trujillo on 03-31-2023 Neutrophils (Bld) [#/Vol] 4.0 10*3/uL 1.8-7.7 [facility] Neutrophils/100 WBC Auto (Bl d)Ordered By: Melanie Trujillo on 03-31-2023 Neutrophils/100 WBC (Bld) 70.1 % . [facility] No Panel InformationOrdered By: Melanie Trujillo on 03-31-2023 Estimated GFR (CKD-EPI) > 60.0 mL/Min [facility] Creatinine Clearance (Chem N/A [facility] No Panel Informationon 03-31 10.7\S\10.7 Normal 6.0-15.0 [facility] manda 250 DO Work Phone: 26.4\S\26.4 Normal 21.0-31.0 [facility] Work Phone: 106\S\106 Normal 0-149 [facility] DO Work Phone: Comment on above: TRIG ATP III CLASSIF ICATION TRIG less than 150 mg/dL Normal TRIG 150-199 mg/dL Borderline high TRIG 200-500 mg/dL High TRIG greater than 500 mg/dL Very high Standard traceable to the Center for Disease Conrtrol and Prevention (CDC) test method. 4.1\S\4.1 Normal 3.5-5.1 [facility] manda 250 DO Work Phone: 139\S\139 Normal 136-145 [facility] 250 DO Work Phone: 23\S\23 Normal 7-25 [facility] DO Work Phone: > 60.0 Normal [facility] DO Work Phone: 0.88\S\0.88 Normal 0.70-1.30 [facility] manda 250 DO Work Phone: 3.3\S\3.3 Normal <5.0 [facility] 250 DO Work Phone: Comment on above: PERFORMED BY:[facility] [place], [place] [phone] MEDICAL DIRECTOROLMAN ALBARRAN M.D. 21\S\21 Normal [facility] 250 DO Work Phone: [phone] 40\S\40 Normal 29-71 [facility] [place] [facility] manda 250 DO Work Phone: Comment on above: HDL CHOL ATP-III CLA SSIFICATION Cardiovascular Risk HDL > or equal to 60 mg/dL LOW HDL < 40 mg/dL HIGH 0.0\S\0.0 Normal 0.0-0.2 [facility] manda 250 DO Work Phone: Comment on above: PERFORMED BY:[place] [address] [place], [place] [id number] MEDICAL DIRECTOROLMAN ALBARRAN M.D. 0.1\S\0.1 Normal 0-0.5 [facility] manda 250 DO Work Phone: [phone] 0.8\S\0.8 below low threshold 1.00-4.8 [facility] manda 250 DO Work Phone: [phone] 4.0\S\4.0 Normal 1.8-7.7 [facility] manda 250 DO Work Phone: [phone] 0.6\S\0.6 Normal . [facility] manda 250 DO Work Phone: [phone] 1.6\S\1.6 Normal . [facility] manda 250 DO Work Phone: [phone] 13.9\S\13.9 Normal . [facility] manda 250 DO Work Phone: [phone] 13.8\S\13.8 Normal . [facility] manda 250 DO Work Phone: [phone] 70.1\S\70.1 Normal . [facility] manda 250 DO Work Phone: [phone] 8.4\S\8.4 Normal 6.6-10.1 [facility] manda 250 DO Work Phone: [phone] 180\S\180 Normal 150-450 [facility] manda 250 DO Work Phone: [phone] 14.5\S\14.5 Normal 12.0-14.8 [facility] manda 250 DO Work Phone: [phone] 34.2\S\34.2 Normal 32.5-35.6 [facility] manda 250 DO Work Phone: [phone] 30.4\S\30.4 Normal 27.5-35.2 [facility] manda 250 DO Work Phone: [phone] 89.0\S\89.0 Normal 83.5-101 [facility] manda 250 DO Work Phone: [phone] 46.7\S\46.7 Normal 38.8-50.0 [facility] manda 250 DO Work Phone: [phone] 16.0\S\16.0 Normal 13.0-17.0 [facility] manda 250 DO Work Phone: [phone] 5.24\S\5.24 Normal 3.90-5.60 [facility] manda 250 DO Work Phone: [phone] 5.7\S\5.7 Normal 4.1-10.5 [facility] 250 DO Work Phone: 39.0\S\39.0 above high threshold 25.1-36.5 [facility] 250 DO Work Phone: Comment on above: PERFORMED BY:[place] [address] [place], [place] [phone] MEDICAL DIRECTOROLMAN ALBARRAN M.D. 1.1\S\1.1 Normal -[facility]ay 250 DO Work Phone: Comment on above: [...] valves: 3 - 4.5 12.3\S\12.3 Normal 9.0-12.9 -[facility] manda 250 DO Work Phone: Nucleated erythrocytes [Pres ence] in Blood by Automated countOrdered By: Melanie Trujillo on 03-31-2023 Nucleated RBC Auto Ql (Bld) 0.1 /100{WBC} 0-0.5 [facility] Platelet mean volume Auto (B ld) [Entitic vol]Ordered By: Melanie Trujillo on 03-31-2023 Platelet mean volume (Bld) [Entitic vol] 8.4 fL 6.6-10.1 [facility] Platelet poor plasma interna tional normalized ratio (INR) by coagulation assay (relatOrdered By: Melanie Trujillo on 03-31-2023 INR Coag (PPP) [Relative time] 1.1 {INR} [facility] Comment on above: INR Therapeutic Rang e [...] 03-31-2023 Platelets (Bld) [#/Vol] 180 10*3/uL 150-450 [facility] Potassium [Moles/volume] in Serum or PlasmaOrdered By: Melanie Trujillo on 03-31-2023 Potassium [Moles/Vol] 4.1 mmol/L 3.5-5.1 [facility] RBC Auto (Bld) [#/Vol]Ordere d By: Melanie Trujillo on 03-31-2023 RBC (Bld) [#/Vol] 5.24 10*6/uL 3.90-5.60 [facility] Serum or plasma anion gap de terminationOrdered By: Melanie Trujillo on 03-31-2023 Anion gap [Moles/Vol] 10.7 mmol/L 6.0-15.[address] [facility] Serum or plasma high density lipoprotein (HDL) cholesterol measurementOrdered By: Melanie Trujillo on 03-31-2023 Cholesterol in HDL [Mass/Vol] 40 mg/dL 29-71 [facility] Comment on above: HDL CHOL ATP-III CLA SSIFICATION Cardiovascular RiskHDL > or equal to 60 mg/dL LOWHDL < 40 mg/dL HIGH Serum or plasma total choles terol/high density lipoprotein (HDL) cholesterol mass ratOrdered By: Melanie Trujillo on 03-31-2023 Cholesterol.total/Chol esterol in HDL [Mass ratio] 3.3 {ratio} <5.0 [facility] Sodium [Moles/volume] in Ser um or PlasmaOrdered By: Melanie Trujillo on 03-31-2023 Sodium [Moles/Vol] 139 mmol/L 136-145 [facility] Triglyceride [Mass/volume] i n Serum or PlasmaOrdered By: Melanie Trujillo on 03-31-2023 Triglyceride [Mass/Vol] 106 mg/dL 0-149 [facility] Comment on above: TRIG ATP III CLASSIF ICATIONTRIG less than 150 mg/dL NormalTRIG 150-199 mg/dL Borderline highTRIG 200-500 mg/dL High TRIG greater than 500 mg/dL Very highStandard traceable to the Center for Disease Conrtrol and Prevention (CDC) test method. Urea nitrogen [Mass/volume] in Serum or PlasmaOrdered By: Melanie Trujillo on 03-31-2023 Urea nitrogen [Mass/Vol] 23 mg/dL 7-25 [facility] WBC Auto (Bld) [#/Vol]Ordere d By: Melanie Trujillo on 03-31-2023 WBC (Bld) [#/Vol] 5.7 10*3/uL 4.1-10.5 [facility] Office Visit (Cardiology)on 03-30-2023 Follow-up visit Diagnoses/Problems Assessed Chest pain (786.50) (R07.9) SOB (shortness of breath) on exertion (786.05) (R06.02) Hyperlipemia (272.4) (E78.5) Hypertension (401.9) (I10) Class 1 obesity with body mass index (BMI) of 32.0 to 32.9 in adult (278.00,V85.32) (E66.9,Z68.32) Former smoker (V15.82) (Z87.891) quit in the 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 Patient has since [...] Allergies Medication (more content not included)... Normal [employer] Tobacco Screening.on 023 Adult depression screening assessment No -[facility] manda 250 DO Work Phone: Fall risk assessment a) No falls within the last year [facility] Heart[facility]odia holman 250 DO Work Phone: Tobacco use status CPHS b) No [facility] molinay 250 DO Work Phone: ECHOCARDIO M/2D COMPLETEon 0 03-21-2023 ECHOCARDIO M/2D COMPLETE Patient: VALENTIN TORRE Exam Date: 03/21/2023 : 1955 Gender:M Ordering : SHAIKH Pee MULTANI . Admission #: [id number] Family : DR SASCHA Mccain CYNTHIACIERRA Order #: [id number] CLICK HERE TO VIEW EXAM ECHOCARDIOGRAM REPORT [...] Area (VTI): 3.04 cm2, 3.04 cm2 Deceleration [place]: 0.56 m/s2 Pressure Half-Time: 991.91 ms Peak [...] M.D. on 03/24/2023 at 12:17 Approved by: Keal Huynh M.D. on 03/24/2023 at 12:21 Normal [facility] NM STRESS/REST MULTIon 03-21 NM STRESS/REST MULTI Patient: JANEL TORRE Exam Date: 03/21/2023 : 1955 Gender:M Ordering : SHAIKH Pee MULTANI . Admission #: [id number] Family : Order #: [id number] CLICK HERE TO VIEW EXAM RADIOLOGY REPORT [...] Gale M.D. on 03/22/2023 at 11:30 Normal [facility] TROPONIN, HIGH SENSITIVITYon 03-21-2023 HSTROP 13.1 pg/mL Normal 4.0-76.1 [facility] Comment on above: Result Comment: CUT- OFF POINTS HAVE BEEN ESTABLISHED BASED ON THE FOURTH UNIVERSAL DEFINITIONS OF MYOCARDIAL INFARCTION. THE UPPER REFERENCE LIMIT (URL) OF TROPONIN, DEFINED THE 99TH PERCENTILE OF cTnI DISTRIBUTION IN A REFERENCE POPULATION, HAS BEEN CONFIRMED THE DECISION THRESHOLD FOR [place] DIAGNOSIS. Performed By: #### H STROPN ####[facility] [address] [place] [address]Dr. Jo De Dios BNPon 03-20-2023 Natriuretic peptide B (Bld) [Mass/Vol] 47.0 pg/mL Normal <=900.0 [facility] Comment on above: Performed By: #### B BIGHT MAKER, CMP, CMADM #### [facility] [address] [place] [address] [address] Jo De Dios CARDIAC YANETH ADMITon 023 CK [Catalytic activity/Vol] 149 U/L Normal 39-308 [facility] Comment on above: Performed By: #### B BIGHT MAKER, CMP, CMADM ####[facility] [address] [place] [address]DrRigo De Dios CK.MB [Mass/Vol] 1.51 ng/mL Normal <=3.60 [facility] Comment on above: Performed By: #### B BIGHT MAKER, CMP, CMADM ####[facility] [address] [place] [address]DrRigo De Dios HSTROP 14.8 pg/mL Normal 4.0-76.1 [facility] Comment on above: Result Comment: CUT- OFF POINTS HAVE BEEN ESTABLISHED BASED ON THE FOURTH UNIVERSAL DEFINITIONS OF MYOCARDIAL INFARCTION. THE UPPER REFERENCE LIMIT (URL) OF TROPONIN, DEFINED THE 99TH PERCENTILE OF cTnI DISTRIBUTION IN A REFERENCE POPULATION, HAS BEEN CONFIRMED THE DECISION THRESHOLD FOR VT DIAGNOSIS. Performed By: #### B BIGHT MAKER, CMP, CMADM ####[facility] [address] [place] [address]DrRigo De Dios RAAD 55 ng/mL Normal 16-96 [facility] Comment on above: Performed By: #### B BIGHT MAKER, CMP, CMADM ####[facility] [address] [place] [address]Dr. Jo De Dios CBC AUTO DIFFon 03-20-2023 BASO # 0.0 103/ul Normal 0.0-0.1 [facility] Comment on above: Performed By: #### C BC #### [facility] [address] [place] [address] Dr. Jo De Dios Basophils/100 WBC (Bld) 0.7 % Normal 0.2-2.0 [facility] Comment on above: Performed By: #### C BC #### [facility] [address] [place] [address] Dr. Jo De Dios EO # 0.1 103/ul Normal 0.0-0.7 [facility] Comment on above: Performed By: #### C BC #### [facility] [address] [place] [address] Dr. Jo De Dios Eosinophils/100 WBC (Bld) 1.5 % Normal 0.9-7.0 [facility] Comment on above: Performed By: #### C BC #### [facility] [address] [place] [address] Dr. Jo De Dios Erythrocyte distribution width (RBC) [Ratio] 14.3 % Normal 11.0-15.0 [facility] Comment on above: Performed By: #### C BC #### [facility] [address] [place] [address] Dr. Jo De Dios Hematocrit (Bld) [Volume fraction] 46.1 % Normal 42.0-54.0 [facility] Comment on above: Performed By: #### C BC #### [facility] [address] [place] [address] Dr. Jo De Dios Hemoglobin (Bld) [Mass/Vol] 15.9 g/dL Normal 14.0-18.0 [facility] Comment on above: Performed By: #### C BC #### [facility] [address] [place] [address] Dr. Jo De Dios IG # 0.03 10e3/ul Normal 0.00-0.03 [facility] Comment on above: Performed By: #### C BC #### [facility] [address] [place] [address] Dr. Jo De Dios IG % 0.5 % Normal 0.0-0.5 [facility] Comment on above: Performed By: #### C BC #### [facility] [address] [place] [address] Dr. Jo De Dios LYMPH # 0.8 103/ul Critically low 1.2-3.8 [facility] Comment on above: Performed By: #### C BC #### [facility] [address] [place] [address] Dr. Jo De Dios Lymphocytes/100 WBC (Bld) 12.6 % Critically low 20.5-60.0 [facility] Comment on above: Performed By: #### C BC #### [facility] [address] [place] [address] Dr. Jo De Dios MANUAL DIFF REQ NO Normal [facility] Comment on above: Performed By: #### C BC #### [facility] [address] [place] [address] Dr. Jo De Dios MCH (RBC) [Entitic mass] 30.1 pg Normal 25.9-34.0 [facility] Comment on above: Performed By: #### C BC #### [facility] [address] [place] [address] Dr. Jo De Dios MCHC (RBC) [Mass/Vol] 34.5 g/dL Normal 29.9-35.2 [facility] Comment on above: Performed By: #### C BC #### [facility] [address] [place] [address] Dr. Jo De Dios MCV (RBC) [Entitic vol] 87.1 fL Normal 80.0-94.0 [facility] Comment on above: Performed By: #### C BC #### [facility] [address] [place] [address] Dr. Jo De Dios MONO # 0.8 103/ul Normal 0.3-0.8 [facility] Comment on above: Performed By: #### C BC #### [facility] [address] [place] [address] Dr. Jo De Dios Monocytes/100 WBC (Bld) 13.7 % Critically high 1.7-12.0 [facility] Comment on above: Performed By: #### C BC #### [facility] [address] [place] [address] Dr. Jo De Dios NEUT # 4.4 103/ul Normal 1.4-6.5 [facility] Comment on above: Performed By: #### C BC #### [facility] [address] [place] [address] Dr. Jo De Dios Neutrophils/100 WBC (Bld) 71.0 % Normal 43.0-75.0 [facility] Comment on above: Performed By: #### C BC #### [facility] [address] [place] [address] Dr. Jo De Dios Platelet mean volume (Bld) [Entitic vol] 9.8 fL Normal 9.5-13.5 [facility] Comment on above: Performed By: #### C BC #### [facility] [address] [place] [address] Dr. Jo De Dios PLT 179 103/ul Normal 150-450 [facility] Comment on above: Performed By: #### C BC #### [facility] [address] [place] [address] Dr. Jo De Dios RBC 5.29 106/ul Normal 4.70-6.10 [facility] Comment on above: Performed By: #### C BC #### [facility] [address] [place] [address] Dr. Jo De Dios WBC 6.1 103/ul Normal 4.0-11.0 [facility] Comment on above: Performed By: #### C BC #### [facility] [address] [place] [address] Dr. Jo De Dios CTA CHEST WO W CONon 03-20- 023 CTA CHEST WO W CON EXAM: [...] ROBERTA WOOD Date: 2023-03-20 16:10 Normal [facility] D-DIMERon 03-20-2023 D-DIMER 0.60 mg/L FEU Critically high <=0.59 [facility] Comment on above: Performed By: #### D DIM ####[facility] [address] [place] [id number] De Dios D-DIMER COMMENTS SEE BELOW Normal [facility] Comment on above: Result Comment: Incr eases [...] generalized hospitalization. Performed By: #### D DIM ####[facility] [address] [place] [id number]. Jo De Dios ER URINE PROFILEon 3 Bilirubin Ql (U) Negative Normal NEGATIVE [facility] Comment on above: Performed By: #### E RUR #### [facility] [address] [place], [place] [address] Dr. Jo De Dios Clarity (U) CLEAR Normal CLEAR [facility] Comment on above: Performed By: #### E RUR #### [facility] [address] [place] [address] Dr. Jo De Dios Color (U) LT. YELLOW Normal YELLOW [facility] Comment on above: Performed By: #### E RUR #### [facility] [address] [place] [address] Dr. Jo De Dios ERUAHD A micrscopic examina tion will be performed if indicated. Normal [facility] Comment on above: Performed By: #### E RUR #### [facility] [address] [place] [address] Dr. Jo De Dios Glucose Ql (U) Negative Normal NEGATIVE [facility] Comment on above: Performed By: #### E RUR #### [facility] [address] [place] [address] Dr. Jo De Dios Hemoglobin Ql (U) Negative Normal NEGATIVE [facility] Comment on above: Performed By: #### E RUR #### [facility] [address] [place] [address] Dr. Jo De Dios Ketones Ql (U) Negative Normal NEGATIVE [facility] Comment on above: Performed By: #### E RUR #### [facility] [address] [place] [address] Dr. Jo De Dios LEUKOCYTES Negative Normal NEGATIVE [facility] Comment on above: Performed By: #### E RUR #### [facility] [address] [place] [address] Dr. Jo De Dios Nitrite Ql (U) Negative Normal NEGATIVE [facility] Comment on above: Performed By: #### E RUR #### [facility] [address] [place] [address] Dr. Jo De Dios pH (U) 5.0 [pH] Normal 5-9 [facility] Comment on above: Performed By: #### E RUR #### [facility] [address] [place] [address] Dr. Jo De Dios SPEC GRAVITY 1.020 Normal 1.005-<=1. 025 [facility] Comment on above: Performed By: #### E RUR #### [facility] [address] [place] [address] Dr. Jo De Dios UA PROTEIN Negative Normal NEGATIVE/ TRACE [facility] Comment on above: Performed By: #### E RUR #### [facility] [address] [place] [address] Dr. Jo De Dios UR MICRO IND NOT INDICATED Normal [facility] Comment on above: Performed By: #### E RUR #### [facility] [address] [place] [address] Dr. Jo De Dios Urobilinogen Qn (U) 0.2 {Carrie'U}/dL Normal 0.2 - 1. 0 [facility] Comment on above: Performed By: #### E RUR #### [facility] [address] [place] [address] Dr. Jo De Dios GLYCOHEMOGLOBIN A1Con 2022 ADA RECOMMENDATION SEE BELOW Normal [facility] Comment on above: Result Comment: ADA RECOMMENDED LIMIT 4.0 - 6.0 ADA THERAPEUTIC TARGET < 7.0 ACTION SUGGESTED > 7.0 Performed By: #### A 1C #### [facility] [address] [place] [address] Dr. Jo De Dios Glucose [Mass/Vol] 103 mg/dL Normal [facility] Comment on above: Performed By: #### A 1C #### [facility] [address] [place] [address] Dr. Jo De Dios HbA1c (Bld) [Mass fraction] 5.2 % Normal 4.5-6.2 [facility] Comment on above: Performed By: #### A 1C #### [facility] [address] [place] [address] Dr. Jo De Dios LIPID PROFILEon 03-20-2023 CHOL-HDL RATIO NORM SEE BELOW Normal [facility] Comment on above: Result Comment: 3.3 - 4.4 LOW RISK 4.4 - 7.1 AVERAGE RISK 7.1 - 11.0 MODERATE RISK >11.0 HIGH RISK Performed By: #### L IPID #### [facility] [address] [address] [address] Jo De Dios Cholesterol [Mass/Vol] 132 mg/dL Normal <=200 [facility] Comment on above: Performed By: #### L IPID #### [facility] [address] [address] [address] Jo De Dios Cholesterol in HDL [Mass/Vol] 46 mg/dL Normal 40-60 [facility] Comment on above: Performed By: #### L IPID #### [facility] [address] [address] [address] Jo De Dios Cholesterol in LDL [Mass/Vol] 69.4 mg/dL Normal [facility] Comment on above: Performed By: #### L IPID #### [facility] [address] [address] [address] Jo De Dios Cholesterol.total/Chol esterol in HDL [Mass ratio] 2.9 {ratio} Normal [facility] Comment on above: Performed By: #### L IPID #### [facility] [address] [address] [address] Jo De Dios HDL NORMAL > or = 60 mg/dl - LO W CARDIOVASCULAR RISK <40 mg/dl - HIGH CARDIOVASCULAR RISK Normal [facility] Comment on above: Performed By: #### L IPID #### [facility] [address] [address] [address] Jo De Dios LDL CALC NORMAL SEE BELOW Normal [facility] Comment on above: Result Comment: <100 mg/dl OPTIMAL 100 - 129 mg/dl NEAR OR ABOVE OPTIMAL 130 - 159 mg/dl BORDERLINE HIGH 160 - 189 mg/dl HIGH >190 mg/dl VERY HIGH Performed By: #### L IPID #### [facility] [address] [address] [address] Jo De Dios Triglyceride [Mass/Vol] 83 mg/dL Normal <=150 [facility] Comment on above: Performed By: #### L IPID #### [facility] [address] [address] [address] Jo De Dios VLDL CALC 16.6 mg/dL Normal [facility] Comment on above: Performed By: #### L IPID #### [facility] [address] [place] [address] Dr. Jo De Dios PROF 14(COMP METB)on 023 Albumin [Mass/Vol] 3.7 g/dL Normal 3.4-5.0 [facility] Comment on above: Performed By: #### B BIGHT MAKER, CMP, CMADM #### [facility] [address] [place] [address] Dr. Jo De Dios Albumin/Globulin [Mass ratio] 1.1 {ratio} Normal [facility] Comment on above: Performed By: #### B BIGHT MAKER, CMP, CMADM #### [facility] [address] [place] [address] Dr. Jo De Dios ALP [Catalytic activity/Vol] 96 U/L Normal 46-116 [facility] Comment on above: Performed By: #### B BIGHT MAKER, CMP, CMADM #### [facility] [address] [place] [address] Dr. Jo De Dios ALT [Catalytic activity/Vol] 41 U/L Normal 16-63 [facility] Comment on above: Performed By: #### B BIGHT MAKER, CMP, CMADM #### [facility] [address] [place] [address] Dr. Jo De Dios Anion gap [Moles/Vol] 11.2 mmol/L Normal [facility] Comment on above: Performed By: #### B BIGHT MAKER, CMP, CMADM #### [facility] [address] [place] [address] Dr. Jo De Dios AST [Catalytic activity/Vol] 25 U/L Normal 15-37 [facility] Comment on above: Performed By: #### B BIGHT MAKER, CMP, CMADM #### [facility] [address] [place] [address] Dr. Jo De Dios Bilirubin [Mass/Vol] 0.8 mg/dL Normal 0.2-1.0 [facility] Comment on above: Performed By: #### B BIGHT MAKER, CMP, CMADM #### [facility] [address] [place] [address] Dr. Jo De Dios Calcium [Mass/Vol] 8.8 mg/dL Normal 8.5-10.1 [facility] Comment on above: Performed By: #### B BIGHT MAKER, CMP, CMADM #### [facility] [address] [address] [address] Jo De Dios Chloride [Moles/Vol] 109 mmol/L Critically high 98-107 [facility] Comment on above: Performed By: #### B BIGHT MAKER, CMP, CMADM #### [facility] [address] [address] [address] Jo De Dios CO2 [Moles/Vol] 23.4 mmol/L Normal 21.0-32.0 [facility] Comment on above: Performed By: #### B BIGHT MAKER, CMP, CMADM #### [facility] [address] [place] [address] Dr. Jo De Dios Creatinine [Mass/Vol] 0.84 mg/dL Normal 0.70-1.30 [facility] Comment on above: Performed By: #### B BIGHT MAKER, CMP, CMADM #### [facility] [address] [place] [address] Dr. Jo De Dios EGFR-AF MALDIVIAN >60 Normal >=60 [facility] Comment on above: Performed By: #### B BIGHT MAKER, CMP, CMADM #### [facility] [address] [place] [address] Dr. Jo De Dios EGFR-NON AF MALDIVIAN >60 Normal >=60 [facility] Comment on above: Performed By: #### B BIGHT MAKER, CMP, CMADM #### [facility] [address] [place] [address] Dr. Jo De Dios Globulin (S) [Mass/Vol] 3.3 g/dL Normal [facility] Comment on above: Performed By: #### B BIGHT MAKER, CMP, CMADM #### [facility] [address] [place] [address] Dr. Jo De Dios Glucose [Mass/Vol] 96 mg/dL Normal 74-106 [facility] Comment on above: Performed By: #### B BIGHT MAKER, CMP, CMADM #### [facility] [address] [place], [place] [id number] Dr. Jo De Dios Potassium [Moles/Vol] 3.6 mmol/L Normal 3.5-5.1 [facility] Comment on above: Performed By: #### B BIGHT MAKER, CMP, CMADM #### [facility] [address] [address] [address] Jo De Dios Protein [Mass/Vol] 7.0 g/dL Normal 6.4-8.2 [facility] Comment on above: Performed By: #### B BIGHT MAKER, CMP, CMADM #### [facility] [address] [address] [address] Jo De Dios Sodium [Moles/Vol] 140 mmol/L Normal 136-145 [facility] Comment on above: Performed By: #### B BIGHT MAKER, CMP, CMADM #### [facility] [address] [address] [address] Jo De Dios Urea nitrogen [Mass/Vol] 21.0 mg/dL Critically high 7.0-18.0 [facility] Comment on above: Performed By: #### B BIGHT MAKER, CMP, CMADM #### [facility] [address] [address] [address] Jo De Dios Urea nitrogen/Creatinine [Mass ratio] 25.0 mg/mg Normal [facility] Comment on above: Performed By: #### B BIGHT MAKER, CMP, CMADM #### [facility] [address] [address] [address] Jo De Dios PROTIMEon 03-20-2023 INR Coag (PPP) [Relative time] 0.96 {INR} Normal [facility] Comment on above: Performed By: #### P T, PTT ####[facility] [address] [place] [address]Dr. Jo De Dios INR GUIDELINES SEE BELOW Normal [facility] Comment on above: Result Comment: BETSEY RED INR: 2.0 - 3.0 CONDITIONS NOT LISTED BELOW 2.5 - 3.5 FOR PROSTHETIC HEART VALVE REPLACEMENT 2.5 - 3.5 RECURRENT THROMBOSIS Performed By: #### P T, PTT ####[facility] [address] [place] [address]Dr. Jo De Dios PT Coag (PPP) [Time] 10.2 s Normal 9.0-11.6 [facility] Comment on above: Performed By: #### P T, PTT ####[facility] [address] [place], [place] [address]Nw. Jo De Dios PTTon 03-20-2023 aPTT Coag (Bld) [Time] 30.0 s Normal 22.3-36.2 [facility] Comment on above: Performed By: #### P T, PTT ####[facility] [address] [place] [id number]. Jo De Dios TROPONIN, HIGH SENSITIVITYon 03-20-2023 HSTROP 30.2 pg/mL Normal 4.0-76.1 [facility] Comment on above: Result Comment: CUT- OFF POINTS HAVE BEEN ESTABLISHED BASED ON THE FOURTH UNIVERSAL DEFINITIONS OF MYOCARDIAL INFARCTION. THE UPPER REFERENCE LIMIT (URL) OF TROPONIN, DEFINED THE 99TH PERCENTILE OF cTnI DISTRIBUTION IN A REFERENCE POPULATION, HAS BEEN CONFIRMED THE DECISION THRESHOLD FOR VT DIAGNOSIS. Performed By: #### H STROPN ####[facility] [address] [place] [id number]. Jo De Dios XR CHEST 1 Von [...] by: GAVIN MINER Date: 2023-03-20 12:56 Normal [facility] Alanine aminotransferase [En zymatic activity/volume] in Serum or PlasmaOrdered By: Christine Sanchez on 01-31-2023 ALT [Catalytic activity/Vol] 34 U/L 7-52 [facility] Albumin [Mass/volume] in Ser um or Plasma by Bromocresol green (BCG) dye binding methoOrdered By: Christine Sanchez on 01-31-2023 Albumin BCG dye [Mass/Vol] 4.3 g/dL 3.5-5.7 [facility] Alkaline phosphatase [Enzyma tic activity/volume] in Serum or PlasmaOrdered By: Christine Sanchez on 01-31-2023 ALP [Catalytic activity/Vol] 70 U/L 34-104 [facility] Aspartate aminotransferase [ Enzymatic activity/volume] in Serum or PlasmaOrdered By: Christine Sanchez on 01-31-2023 AST [Catalytic activity/Vol] 23 U/L 13-39 [facility] Automated erythrocytes count in urine sediment (number/area)Ordered By: Christine Sanchez on 01-31-2023 RBC Auto (Urine sed) [#/Area] 1-2 [HPF] 0-4 [facility] Automated leukocytes count i n urine sediment (number/area)Ordered By: Christine Sanchez on 01-31-2023 WBC Auto (Urine sed) [#/Area] 1-2 [HPF] 0-4 [facility] Basophils Auto (Bld) [#/Vol] Ordered By: Christine Sanchez on 01-31-2023 Basophils (Bld) [#/Vol] 0.0 10*3/uL 0.0-0.2 [facility] Basophils/100 WBC Auto (Bld) Ordered By: Christine Sanchez on 01-31-2023 Basophils/100 WBC (Bld) 0.5 % . [facility] Bilirubin Test strip Ql (U)O rdered By: Christine Sanchez on 01-31-2023 Bilirubin Ql (U) Negative Negative [facility] Bilirubin.total [Mass/volume ] in Serum or PlasmaOrdered By: Christine Sanchez on 01-31-2023 Bilirubin [Mass/Vol] 0.8 mg/dL 0.3-1.0 [facility] Calcium [Mass/volume] in Ser um or PlasmaOrdered By: Christine Sanchez on 01-31-2023 Calcium [Mass/Vol] 8.9 mg/dL 8.6-10.3 [facility] Carbon dioxide, total [Moles /volume] in Serum or PlasmaOrdered By: Christine Sanchez on 01-31-2023 CO2 [Moles/Vol] 24.6 mmol/L 21.0-31.0 [facility] Chloride [Moles/volume] in S ace or PlasmaOrdered By: Christine Sanchez on 01-31-2023 Chloride [Moles/Vol] 108 mmol/L 98-107 [facility] Color Auto (U)Ordered By: Marianna Arellano on 01-31-2023 Color (U) Dark yellow Yellow [facility] Creatinine [Mass/volume] in Serum or PlasmaOrdered By: Christine Sanchez on 01-31-2023 Creatinine [Mass/Vol] 0.90 mg/dL 0.70-1.30 [facility] Eosinophils Auto (Bld) [#/Vo l]Ordered By: Christine Sanchez on 01-31-2023 Eosinophils (Bld) [#/Vol] 0.1 10*3/uL 0.0-0.45 [facility] Eosinophils/100 WBC Auto (Bl d)Ordered By: Chirstine Sanchez on 01-31-2023 Eosinophils/100 WBC (Bld) 1.2 % . [facility] Erythrocyte distribution wid th Auto (RBC) [Ratio]Ordered By: Christine Sanchez on 01-31-2023 Erythrocyte distribution width (RBC) [Ratio] 15.2 % 12.0-14.8 [facility] Erythrocyte sedimentation ra te by Photometric methodOrdered By: Christine Sanchez on 01-31-2023 ESR Photometric method (Bld) [Velocity] 3 mm/hr 0-19 [facility] Globulin Calc (S) [Mass/Vol] Ordered By: Christine Sanchez on 01-31-2023 Globulin (S) [Mass/Vol] 1.9 g/dL [facility] Glucose [Mass/volume] in Ser um or PlasmaOrdered By: Christine Sanchez on 01-31-2023 Glucose [Mass/Vol] 131 mg/dL 74-109 [facility] Comment on above: ADA recommended refe rence rangeRandom Glucose Reference Range is dependent on time and content of last meal. Glucose of more than 200 mg/dL in a nonstressed, ambulatory subject supports the diagnosis of Diabetes Mellitus. Hematocrit Auto (Bld) [Volum e fraction]Ordered By: Christine Sanchez on 01-31-2023 Hematocrit (Bld) [Volume fraction] 45.2 % 38.8-50.0 [facility] Hemoglobin [Mass/volume] in BloodOrdered By: Christine Sanchez on 01-31-2023 Hemoglobin (Bld) [Mass/Vol] 15.4 g/dL 13.0-17.0 [facility] Ketones Auto test strip (U) [Mass/Vol]Ordered By: Christine Sanchez on 01-31-2023 Ketones (U) [Mass/Vol] Trace Negative Fi [facility] Laboratory - Chemistry and C hemistry - challengeOrdered By: Christine Sanchez on 01-31-2023 GFR/1.73 sq M.predicted MDRD (S/P/Bld) [Vol rate/Area] mL/min/{1.73_m2} [facility] Laboratory - UrinalysisOrder ed By: Christine Sanchez on 01-31-2023 Hyaline casts LM Ql (Urine sed) 0-8 [LPF] 0-8 [facility] Leukocytes [#/volume] correc nat for nucleated erythrocytes in Blood by Automated counOrdered By: Christine Sanchez on 01-31-2023 WBC corrected for nucl RBC Auto (Bld) [#/Vol] 4.5 10*3/uL 4.1-10.5 [facility] Lymphocytes Auto (Bld) [#/Vo l]Ordered By: Christine Sanchez on 01-31-2023 Lymphocytes (Bld) [#/Vol] 0.7 10*3/uL 1.00-4.8 [facility] Lymphocytes/100 WBC Auto (Bl d)Ordered By: Christine Sanchez on 01-31-2023 Lymphocytes/100 WBC (Bld) 15.3 % . [facility] MCH Auto (RBC) [Entitic mass ]Ordered By: Christine Sanchez on 01-31-2023 MCH (RBC) [Entitic mass] 30.4 pg 27.5-35.2 [facility] MCHC Auto (RBC) [Mass/Vol]Or dered By: Christine Sanchez on 01-31-2023 MCHC (RBC) [Mass/Vol] 34.1 g/dL 32.5-35.6 [facility] MCV Auto (RBC) [Entitic vol] Ordered By: Christine Sanchez on 01-31-2023 MCV (RBC) [Entitic vol] 89.0 fL 83.5-101 [facility] Monocytes Auto (Bld) [#/Vol] Ordered By: Christine Sanchez on 01-31-2023 Monocytes (Bld) [#/Vol] 0.4 10*3/uL 0.0-0.8 [facility] Monocytes/100 WBC Auto (Bld) Ordered By: Christine Sanchez on 01-31-2023 Monocytes/100 WBC (Bld) 9.0 % . [facility] Neutrophils Auto (Bld) [#/Vo l]Ordered By: Christine Sanchez on 01-31-2023 Neutrophils (Bld) [#/Vol] 3.3 10*3/uL 1.8-7.7 [facility] Neutrophils/100 WBC Auto (Bl d)Ordered By: Christine Sanchez on 01-31-2023 Neutrophils/100 WBC (Bld) 74.0 % . [facility] Nitrite Test strip Ql (U)Ord ered By: Christine Sanchez on 01-31-2023 Nitrite Ql (U) Negative Negative [facility] No Panel InformationOrdered By: Christine Sanchez on 01-31-2023 Pharmacy Creatinine Clearance (Chem N/A [facility] Total Complement (CH50) >60 U/mL >41 [facility] Comment on above: Age Male Female 3 [...] to determine out of range values.Performed at: [employer] [facility] [address] [id number] Director: Richy Ardon PhD, Phone: [phone] Nucleated erythrocytes [Pres ence] in Blood by Automated countOrdered By: Christine Sanchez on 01-31-2023 Nucleated RBC Auto Ql (Bld) 0.3 /100{WBC} 0-0.5 [facility] Platelet mean volume Auto (B ld) [Entitic vol]Ordered By: Christine Sanchez on 01-31-2023 Platelet mean volume (Bld) [Entitic vol] 8.5 fL 6.6-10.1 [facility] Platelets Auto (Bld) [#/Vol] Ordered By: Christine Sanchez on 01-31-2023 Platelets (Bld) [#/Vol] 163 10*3/uL 150-450 [facility] Potassium [Moles/volume] in Serum or PlasmaOrdered By: Christine Sanchez on 01-31-2023 Potassium [Moles/Vol] 3.7 mmol/L 3.5-5.1 [facility] Protein Auto test strip (U) [Mass/Vol]Ordered By: Christine Sanchez on 01-31-2023 Protein (U) [Mass/Vol] Trace mg/dL Negative [facility] Protein [Mass/volume] in Ser um or PlasmaOrdered By: Christine Sanchez on 01-31-2023 Protein [Mass/Vol] 6.2 g/dL 6.4-8.9 [facility] RBC Auto (Bld) [#/Vol]Ordere d By: Christine Sanchez on 01-31-2023 RBC (Bld) [#/Vol] 5.08 10*6/uL 3.90-5.60 [facility] Serum or plasma albumin/glob ulin mass ratioOrdered By: Christine Sanchez on 01-31-2023 Albumin/Globulin [Mass ratio] 2.3 {ratio} [facility] Serum or plasma anion gap de terminationOrdered By: Christine Sanchez on 01-31-2023 Anion gap [Moles/Vol] 11.1 mmol/L 6.0-15.[address] [facility] Serum or plasma complement C 3 measurement (mass/volume)Ordered By: Christine Sanchez on 01-31-2023 Complement C3 [Mass/Vol] 124 mg/dL 82-167 [facility] Comment on above: Performed at: - [place] [id number] Director: Richy Ardon PhD, Phone: [phone] Serum or plasma complement C 4 measurement (mass/volume)Ordered By: Christine Sanchez on 01-31-2023 Complement C4 [Mass/Vol] 16 mg/dL 12-38 [facility] Sodium [Moles/volume] in Ser um or PlasmaOrdered By: Christine Sanchez on 01-31-2023 Sodium [Moles/Vol] 140 mmol/L 136-145 [facility] Specific gravity Auto test s trip (U) [Rel density]Ordered By: Christine Sanchez on 01-31-2023 Specific gravity (U) [Rel density] 1.028 1.001-1.03 0 [facility] Squamous epithelial cells de tection in urine sediment by light microscopyOrdered By: Christine Sanchez on 01-31-2023 Epithelial cells.squamous LM Ql (Urine sed) 0-1 [HPF] 0-2 [facility] Urea nitrogen [Mass/volume] in Serum or PlasmaOrdered By: Christine Sanchez on 01-31-2023 Urea nitrogen [Mass/Vol] 23 mg/dL 7-25 [facility] Urine bacteria detection by automated methodOrdered By: Christine Sanchez on 01-31-2023 Bacteria Auto Ql (U) None seen None Seen [facility] Urine clarity by refractomet ry automatedOrdered By: Christine Sanchez on 01-31-2023 Clarity Refractometry automated (U) Turbid Clear [facility] Urine glucose measurement by automated test strip (mass/volume)Ordered By: Christine Sanchez on 01-31-2023 Glucose Auto test strip (U) [Mass/Vol] Normal mg/dL Normal [facility] Urine hemoglobin detection b y automated test stripOrdered By: Christine Sanchez on 01-31-2023 Hemoglobin Auto test strip Ql (U) Negative Negative [facility] Urine leukocyte esterase det ection by automated test stripOrdered By: Christine Sanchez on 01-31-2023 Leukocyte esterase Auto test strip Ql (U) 1+ Negative [facility] Urobilinogen Auto test strip (U) [Mass/Vol]Ordered By: Christine Sanchez on 01-31-2023 Urobilinogen (U) [Mass/Vol] Normal mg/dL Normal [facility] WBC Auto (Bld) [#/Vol]Ordere d By: Christine Sanchez on 01-31-2023 WBC (Bld) [#/Vol] 4.5 10*3/uL 4.1-10.5 [facility] pH Auto test strip (U)Ordere d By: Christine Sanchez on 01-31-2023 pH (U) 5.0 [pH] 5.0-9.0 [facility] Automated erythrocytes count in urine sediment (number/area)Ordered By: Christien Sanchez on 10-26-2022 RBC Auto (Urine sed) [#/Area] 0-1 [HPF] 0-4 [facility] Automated leukocytes count i n urine sediment (number/area)Ordered By: Christine Sanchez on 10-26-2022 WBC Auto (Urine sed) [#/Area] 0-1 [HPF] 0-4 [facility] Basophils Auto (Bld) [#/Vol] Ordered By: Christine Sanchez on 10-26-2022 Basophils (Bld) [#/Vol] 0.0 10*3/uL 0.0-0.2 [facility] Basophils/100 WBC Auto (Bld) Ordered By: Christine Sanchez on 10-26-2022 Basophils/100 WBC (Bld) 0.6 % . [facility] Bilirubin Test strip Ql (U)O rdered By: Christine Sanchez on 10-26-2022 Bilirubin Ql (U) Negative Negative [facility] Body fluid albumin measureme nt (mass/volume)Ordered By: Christine Sanchez on 10-26-2022 Albumin (Body fld) [Mass/Vol] 4.0 g/dL 3.2-5.5 [facility] Color Auto (U)Ordered By: Marianna Arellano on 10-26-2022 Color (U) Yellow Yellow [facility] Creatinine and Glomerular fi ltration rate.predicted panel (S/P/Bld)Ordered By: Christine Sanchez on 10-26-2022 Creatinine [Mass/Vol] 0.89 mg/dL 0.64-1.27 [facility] Eosinophils Auto (Bld) [#/Vo l]Ordered By: Christine Sanchez on 10-26-2022 Eosinophils (Bld) [#/Vol] 0.1 10*3/uL 0.0-0.45 [facility] Eosinophils/100 WBC Auto (Bl d)Ordered By: Christine Sanchez on 10-26-2022 Eosinophils/100 WBC (Bld) 1.9 % . [facility] Erythrocyte distribution wid th Auto (RBC) [Ratio]Ordered By: Christine Sanchez on 10-26-2022 Erythrocyte distribution width (RBC) [Ratio] 14.7 % 12.0-14.8 [facility] Erythrocyte sedimentation ra te by Photometric methodOrdered By: Christine Sanchez on 10-26-2022 ESR Photometric method (Bld) [Velocity] 6 mm/hr 0-19 [facility] Estimated glomerular filtrat ion rate (GFR) non- AmericanOrdered By: Christine Sanchez on 10-26-2022 GFR/1.73 sq M.predicted among non-blacks MDRD (S/P/Bld) [Vol rate/Area] > 60 mL/Min [facility] Globulin Calc (S) [Mass/Vol] Ordered By: Christine Sanchez on 10-26-2022 Globulin (S) [Mass/Vol] 2.2 g/dL [facility] Hematocrit Auto (Bld) [Volum e fraction]Ordered By: Christine Sanchez on 10-26-2022 Hematocrit (Bld) [Volume fraction] 45.5 % 38.8-50.0 [facility] Hemoglobin [Mass/volume] in BloodOrdered By: Christine Sanchez on 10-26-2022 Hemoglobin (Bld) [Mass/Vol] 15.5 g/dL 13.0-17.0 [facility] Ketones Auto test strip (U) [Mass/Vol]Ordered By: Christine Sanchez on 10-26-2022 Ketones (U) [Mass/Vol] Trace Negative [facility] Laboratory - UrinalysisOrder ed By: Christine Sanchez on 10-26-2022 Hyaline casts LM Ql (Urine sed) 0-8 [LPF] 0-8 [facility] Leukocytes [#/volume] correc nat for nucleated erythrocytes in Blood by Automated counOrdered By: Christine Sanchez on 10-26-2022 WBC corrected for nucl RBC Auto (Bld) [#/Vol] 4.7 10*3/uL 4.1-10.5 [facility] Lymphocytes Auto (Bld) [#/Vo l]Ordered By: Christine Sanchez on 10-26-2022 Lymphocytes (Bld) [#/Vol] 0.8 10*3/uL 1.00-4.8 [facility] Lymphocytes/100 WBC Auto (Bl d)Ordered By: Christine Sanchez on 10-26-2022 Lymphocytes/100 WBC (Bld) 16.8 % . [facility] MCH Auto (RBC) [Entitic mass ]Ordered By: Christine Sanchez on 10-26-2022 MCH (RBC) [Entitic mass] 30.4 pg 27.5-35.2 [facility] MCHC Auto (RBC) [Mass/Vol]Or dered By: Christine Sanchez on 10-26-2022 MCHC (RBC) [Mass/Vol] 33.9 g/dL 32.5-35.6 [facility] MCV Auto (RBC) [Entitic vol] Ordered By: Christine Sanchez on 10-26-2022 MCV (RBC) [Entitic vol] 89.6 fL 83.5-101 [facility] Monocytes Auto (Bld) [#/Vol] Ordered By: Christine Sanchez on 10-26-2022 Monocytes (Bld) [#/Vol] 0.6 10*3/uL 0.0-0.8 [facility] Monocytes/100 WBC Auto (Bld) Ordered By: Christine Sanchez on 10-26-2022 Monocytes/100 WBC (Bld) 12.8 % . [facility] Neutrophils Auto (Bld) [#/Vo l]Ordered By: Christine Sanchez on 10-26-2022 Neutrophils (Bld) [#/Vol] 3.2 10*3/uL 1.8-7.7 [facility] Neutrophils/100 WBC Auto (Bl d)Ordered By: Christine Sanchez on 10-26-2022 Neutrophils/100 WBC (Bld) 67.9 % . [facility] Nitrite Test strip Ql (U)Ord ered By: Christine Sanchez on 10-26-2022 Nitrite Ql (U) Negative Negative [facility] No Panel InformationOrdered By: Christine Sanhcez on 10-26-2022 Estimated GFR () > 60 mL/Min [facility] Comment on above: GFR estimated refere nce range: According to KDOQI guidelines, <60 ml/min/1.73m2 is sufficient to diagnose a patient with chronic kidney disease. Pharmacy Creatinine Clearance (Chem N/A [facility] Nucleated erythrocytes [Pres ence] in Blood by Automated countOrdered By: Christine Sanchez on 10-26-2022 Nucleated RBC Auto Ql (Bld) 0.3 /100{WBC} 0-0.5 [facility] Platelet mean volume Auto (B ld) [Entitic vol]Ordered By: Christine Sanchez on 10-26-2022 Platelet mean volume (Bld) [Entitic vol] 8.3 fL 6.6-10.1 [facility] Platelets Auto (Bld) [#/Vol] Ordered By: Christine Sanchez on 10-26-2022 Platelets (Bld) [#/Vol] 203 10*3/uL 150-450 [facility] Protein Auto test strip (U) [Mass/Vol]Ordered By: Christine Sanchez on 10-26-2022 Protein (U) [Mass/Vol] Negative Negative [facility] Protein [Mass/volume] in Ser um or PlasmaOrdered By: Christine Sanchez on 10-26-2022 Protein [Mass/Vol] 6.2 g/dL 6.1-7.9 [facility] RBC Auto (Bld) [#/Vol]Ordere d By: Christine Sanchez on 10-26-2022 RBC (Bld) [#/Vol] 5.08 10*6/uL 3.90-5.60 [facility] Serum or plasma alanine calvert otransferase measurement without P-5'-P (enzymatic activiOrdered By: Christine Sanchez on 10-26-2022 ALT No additional P-5'-P [Catalytic activity/Vol] 40 U/L 60 [facility] Serum or plasma albumin/glob ulin mass ratioOrdered By: Christine Sanchez on 10-26-2022 Albumin/Globulin [Mass ratio] 1.8 {ratio} [facility] Serum or plasma alkaline kelsie sphatase measurement (enzymatic activity/volume)Ordered By: Christine Sanchez on 10-26-2022 ALP [Catalytic activity/Vol] 82 U/L 32-92 [facility] Serum or plasma anion gap de terminationOrdered By: Christine Sanchez on 10-26-2022 Anion gap [Moles/Vol] 16.9 mmol/L 6.0-15.[address] [facility] Serum or plasma aspartate am inotransferase measurement (enzymatic activity/volume)Ordered By: Christine Sanchez on 10-26-2022 AST [Catalytic activity/Vol] 24 U/L 10-42 [facility] Serum or plasma calcium ophelia urement (mass/volume)Ordered By: Christine Sanchez on 10-26-2022 Calcium [Mass/Vol] 9.6 mg/dL 8.2-10.2 [facility] Serum or plasma chloride arelis surement (moles/volume)Ordered By: Christine Sanchez on 10-26-2022 Chloride [Moles/Vol] 102 mmol/L 95-114 [facility] Serum or plasma glucose ophelia urement (mass/volume)Ordered By: Christine Sanchez on 10-26-2022 Glucose [Mass/Vol] 105 mg/dL 70-100 [facility] Comment on above: ADA recommended refe rence rangeRandom Glucose Reference Range is dependent on time and content of last meal. Glucose of more than 200 mg/dL in a nonstressed, ambulatory subject supports the diagnosis of Diabetes Mellitus. Serum or plasma potassium me asurement (moles/volume)Ordered By: Christine Sanchez on 10-26-2022 Potassium [Moles/Vol] 4.1 mmol/L 3.5-5.1 [facility] Serum or plasma sodium measu rement (moles/volume)Ordered By: Christine Sanchez on 10-26-2022 Sodium [Moles/Vol] 136 mmol/L 136-146 [facility] Serum or plasma total biliru bin measurement (mass/volume)Ordered By: Christine Sanchez on 10-26-2022 Bilirubin [Mass/Vol] 0.8 mg/dL 0.3-1.2 [facility] Serum or plasma total carbon dioxide measurement (moles/volume)Ordered By: Christine Sanchez on 10-26-2022 CO2 [Moles/Vol] 21.2 mmol/L 22.0-30.0 [facility] Serum or plasma urea nitroge n measurement (mass/volume)Ordered By: Christine Sanchez on 10-26-2022 Urea nitrogen [Mass/Vol] 16 mg/dL 9-23 [facility] Specific gravity Auto test s trip (U) [Rel density]Ordered By: Christine Sanchez on 10-26-2022 Specific gravity (U) [Rel density] 1.024 1.001-1.03 0 [facility] Squamous epithelial cells de tection in urine sediment by light microscopyOrdered By: Christine Sanchez on 10-26-2022 Epithelial cells.squamous LM Ql (Urine sed) None seen [HPF] 0-2 [facility] Urine bacteria detection by automated methodOrdered By: Christine Sanchez on 10-26-2022 Bacteria Auto Ql (U) None seen None Seen [facility] Urine clarity by refractomet ry automatedOrdered By: Christine Sanchez on 10-26-2022 Clarity Refractometry automated (U) Clear Clear [facility] Urine glucose measurement by automated test strip (mass/volume)Ordered By: Christine Sanchez on 10-26-2022 Glucose Auto test strip (U) [Mass/Vol] Normal mg/dL Normal [facility] Urine hemoglobin detection b y automated test stripOrdered By: Christine Sanchez on 10-26-2022 Hemoglobin Auto test strip Ql (U) Negative Negative [facility] Urine leukocyte esterase det ection by automated test stripOrdered By: Christine Sanchez on 10-26-2022 Leukocyte esterase Auto test strip Ql (U) Negative Negative [facility] Urobilinogen Auto test strip (U) [Mass/Vol]Ordered By: Christine Sanchez on 10-26-2022 Urobilinogen (U) [Mass/Vol] Normal mg/dL Normal [facility] WBC Auto (Bld) [#/Vol]Ordere d By: Christine Sanchez on 10-26-2022 WBC (Bld) [#/Vol] 4.7 10*3/uL 4.1-10.5 [facility] pH Auto test strip (U)Ordere d By: Christine Sanchez on 10-26-2022 pH (U) 5.5 [pH] 5.0-9.0 [facility] Automated erythrocytes count in urine sediment (number/area)Ordered By: Christine Sanchez on 07-21-2022 RBC Auto (Urine sed) [#/Area] 0-1 [HPF] 0-4 [facility] Automated leukocytes count i n urine sediment (number/area)Ordered By: Christine Sanchez on 07-21-2022 WBC Auto (Urine sed) [#/Area] 0-1 [HPF] 0-4 [facility] Basophils Auto (Bld) [#/Vol] Ordered By: Christine Sanchez on 07-21-2022 Basophils (Bld) [#/Vol] 0.0 10*3/uL 0.0-0.2 [facility] Basophils/100 WBC Auto (Bld) Ordered By: Christine Sanchez on 07-21-2022 Basophils/100 WBC (Bld) 0.6 % . [facility] Bilirubin Test strip Ql (U)O rdered By: Christine Sanchez on 07-21-2022 Bilirubin Ql (U) Negative Negative [facility] Body fluid albumin measureme nt (mass/volume)Ordered By: Christine Sanchez on 07-21-2022 Albumin (Body fld) [Mass/Vol] 3.9 g/dL 3.2-5.5 [facility] Color Auto (U)Ordered By: Marianna Arellano on 07-21-2022 Color (U) Yellow Yellow [facility] Creatinine and Glomerular fi ltration rate.predicted panel (S/P/Bld)Ordered By: Christine Sanchez on 07-21-2022 Creatinine [Mass/Vol] 0.91 mg/dL 0.64-1.27 [facility] Eosinophils Auto (Bld) [#/Vo l]Ordered By: Christine Sanchez on 07-21-2022 Eosinophils (Bld) [#/Vol] 0.1 10*3/uL 0.0-0.45 [facility] Eosinophils/100 WBC Auto (Bl d)Ordered By: Christine Sanchez on 07-21-2022 Eosinophils/100 WBC (Bld) 1.6 % . [facility] Erythrocyte distribution wid th Auto (RBC) [Ratio]Ordered By: Christine Sanchez on 07-21-2022 Erythrocyte distribution width (RBC) [Ratio] 15.2 % 12.0-14.8 [facility] Erythrocyte sedimentation ra te by Photometric methodOrdered By: Christine Sanchez on 07-21-2022 ESR Photometric method (Bld) [Velocity] 9 mm/hr 0-19 [facility] Estimated glomerular filtrat ion rate (GFR) non- AmericanOrdered By: Christine Sanchez on 07-21-2022 GFR/1.73 sq M.predicted among non-blacks MDRD (S/P/Bld) [Vol rate/Area] > 60 mL/Min [facility] Globulin Calc (S) [Mass/Vol] Ordered By: Christine Sanchez on 07-21-2022 Globulin (S) [Mass/Vol] 2.1 g/dL [facility] Hematocrit Auto (Bld) [Volum e fraction]Ordered By: Christine Sanchez on 07-21-2022 Hematocrit (Bld) [Volume fraction] 45.4 % 38.8-50.0 [facility] Hemoglobin [Mass/volume] in BloodOrdered By: Christine Sanchez on 07-21-2022 Hemoglobin (Bld) [Mass/Vol] 15.2 g/dL 13.0-17.0 [facility] Ketones Auto test strip (U) [Mass/Vol]Ordered By: Christine Sanchez on 07-21-2022 Ketones (U) [Mass/Vol] Negative Negative Fi [facility] Laboratory - Hematology and Cell countsOrdered By: Christine Sanchez on 07-21-2022 Nucleated RBC/100 WBC (Bld) [Ratio] 0.1 % 0-0.5 [facility] Laboratory - UrinalysisOrder ed By: Christine Sanchez on 07-21-2022 Hyaline casts LM Ql (Urine sed) 0-8 [LPF] 0-8 [facility] Leukocytes [#/volume] in Blo od by Automated countOrdered By: Christine Sanchez on 07-21-2022 WBC (Bld) [#/Vol] 6.6 10*3/uL 4.5-11.0 [facility] Lymphocytes Auto (Bld) [#/Vo l]Ordered By: Christine Sanchez on 07-21-2022 Lymphocytes (Bld) [#/Vol] 0.8 10*3/uL 1.00-4.8 [facility] Lymphocytes/100 WBC Auto (Bl d)Ordered By: Christine Sanchez on 07-21-2022 Lymphocytes/100 WBC (Bld) 11.5 % . [facility] MCH Auto (RBC) [Entitic mass ]Ordered By: Christine Sanchez on 07-21-2022 MCH (RBC) [Entitic mass] 30.3 pg 27.5-35.2 [facility] MCHC Auto (RBC) [Mass/Vol]Or dered By: Christine Sanchez on 07-21-2022 MCHC (RBC) [Mass/Vol] 33.5 g/dL 32.5-35.6 [facility] MCV Auto (RBC) [Entitic vol] Ordered By: Christine Sanchez on 07-21-2022 MCV (RBC) [Entitic vol] 90.4 fL 83.5-101 [facility] Monocytes Auto (Bld) [#/Vol] Ordered By: Christine Sanchez on 07-21-2022 Monocytes (Bld) [#/Vol] 0.9 10*3/uL 0.0-0.8 [facility] Monocytes/100 WBC Auto (Bld) Ordered By: Christine Sanchez on 07-21-2022 Monocytes/100 WBC (Bld) 13.7 % . [facility] Neutrophils Auto (Bld) [#/Vo l]Ordered By: Christine Sanchez on 07-21-2022 Neutrophils (Bld) [#/Vol] 4.8 10*3/uL 1.8-7.7 [facility] Neutrophils/100 WBC Auto (Bl d)Ordered By: Christine Sanchez on 07-21-2022 Neutrophils/100 WBC (Bld) 72.6 % . [facility] Nitrite Test strip Ql (U)Ord ered By: Chritsine Sanchez on 07-21-2022 Nitrite Ql (U) Negative Negative [facility] No Panel InformationOrdered By: Christine Sanchez on 07-21-2022 Estimated GFR () > 60 mL/Min [facility] Comment on above: GFR estimated refere nce range: According to KDOQI guidelines, <60 ml/min/1.73m2 is sufficient to diagnose a patient with chronic kidney disease. Pharmacy Creatinine Clearance (Chem N/A [facility] Total Complement (CH50) >60 U/mL >41 [facility] Comment on above: Age Male Female 3 [...] determine out of range values.Performed at: - [employer] [id number] Director: Richy Ardon PhD, Phone: [phone] Platelet mean volume Auto (B ld) [Entitic vol]Ordered By: Christine Sanchez on 07-21-2022 Platelet mean volume (Bld) [Entitic vol] 8.4 fL 6.6-10.1 [facility] Platelets Auto (Bld) [#/Vol] Ordered By: Christine Sanchez on 07-21-2022 Platelets (Bld) [#/Vol] 185 10*3/uL 150-450 [facility] Protein Auto test strip (U) [Mass/Vol]Ordered By: Christine Sanchez on 07-21-2022 Protein (U) [Mass/Vol] Negative Negative [facility] Protein [Mass/volume] in Ser um or PlasmaOrdered By: Christine Sanchez on 07-21-2022 Protein [Mass/Vol] 6.0 g/dL 6.1-7.9 [facility] RBC Auto (Bld) [#/Vol]Ordere d By: Christine Sanchez on 07-21-2022 RBC (Bld) [#/Vol] 5.03 10*6/uL 3.90-5.60 [facility] Serum or plasma alanine calvert otransferase measurement without P-5'-P (enzymatic activiOrdered By: Christine Sanchez on 07-21-2022 ALT No additional P-5'-P [Catalytic activity/Vol] 35 U/L 10-60 [facility] Serum or plasma albumin/glob ulin mass ratioOrdered By: Christine Sanchez on 07-21-2022 Albumin/Globulin [Mass ratio] 1.9 {ratio} [facility] Serum or plasma alkaline kelsie sphatase measurement (enzymatic activity/volume)Ordered By: Christine Sanchez on 07-21-2022 ALP [Catalytic activity/Vol] 81 U/L 32-92 [facility] Serum or plasma anion gap de terminationOrdered By: Christine Sanchez on 07-21-2022 Anion gap [Moles/Vol] 13.7 mmol/L 6.0-15.[address] [facility] Serum or plasma aspartate am inotransferase measurement (enzymatic activity/volume)Ordered By: Christine Sanchez on 07-21-2022 AST [Catalytic activity/Vol] 20 U/L 10-42 [facility] Serum or plasma calcium ophelia urement (mass/volume)Ordered By: Christine Sanchez on 07-21-2022 Calcium [Mass/Vol] 9.5 mg/dL 8.2-10.2 [facility] Serum or plasma chloride arelis surement (moles/volume)Ordered By: Christine Sanchez on 07-21-2022 Chloride [Moles/Vol] 103 mmol/L 95-114 [facility] Serum or plasma complement C 3 measurement (mass/volume)Ordered By: Christine Sanchez on 07-21-2022 Complement C3 [Mass/Vol] 145 mg/dL 82-167 [facility] Comment on above: Performed at: [address] Director: Richy Ardon PhD, Phone: [phone] Serum or plasma complement C 4 measurement (mass/volume)Ordered By: Christine Sanchez on 07-21-2022 Complement C4 [Mass/Vol] 23 mg/dL 12-38 [facility] Serum or plasma glucose ophelia urement (mass/volume)Ordered By: Christine Sanchez on 07-21-2022 Glucose [Mass/Vol] 83 mg/dL 70-100 [facility] Comment on above: ADA recommended refe rence rangeRandom Glucose Reference Range is dependent on time and content of last meal. Glucose of more than 200 mg/dL in a nonstressed, ambulatory subject supports the diagnosis of Diabetes Mellitus. Serum or plasma potassium me asurement (moles/volume)Ordered By: Christine Sanchez on 07-21-2022 Potassium [Moles/Vol] 4.1 mmol/L 3.5-5.1 [facility] Serum or plasma sodium measu rement (moles/volume)Ordered By: Christine Sanchez on 07-21-2022 Sodium [Moles/Vol] 135 mmol/L 136-146 [facility] Serum or plasma total biliru bin measurement (mass/volume)Ordered By: Christine Sanchez on 07-21-2022 Bilirubin [Mass/Vol] 0.9 mg/dL 0.3-1.2 [facility] Serum or plasma total carbon dioxide measurement (moles/volume)Ordered By: Christine Sanchez on 07-21-2022 CO2 [Moles/Vol] 22.4 mmol/L 22.0-30.0 [facility] Serum or plasma urea nitroge n measurement (mass/volume)Ordered By: Christine Sanchez on 07-21-2022 Urea nitrogen [Mass/Vol] 15 mg/dL 9-23 [facility] Specific gravity Auto test s trip (U) [Rel density]Ordered By: Christine Sanchez on 07-21-2022 Specific gravity (U) [Rel density] 1.020 1.001-1.03 0 [facility] Squamous epithelial cells de tection in urine sediment by light microscopyOrdered By: Christine Sanchez on 07-21-2022 Epithelial cells.squamous LM Ql (Urine sed) None seen [HPF] 0-2 [facility] Urine bacteria detection by automated methodOrdered By: Christine Sanchez on 07-21-2022 Bacteria Auto Ql (U) None seen None Seen [facility] Urine clarity by refractomet ry automatedOrdered By: Christine Sanchez on 07-21-2022 Clarity Refractometry automated (U) Clear Clear [facility] Urine glucose measurement by automated test strip (mass/volume)Ordered By: Christine Sanchez on 07-21-2022 Glucose Auto test strip (U) [Mass/Vol] Normal mg/dL Normal [facility] Urine hemoglobin detection b y automated test stripOrdered By: Christine Sanchez on 07-21-2022 Hemoglobin Auto test strip Ql (U) Negative Negative [facility] Urine leukocyte esterase det ection by automated test stripOrdered By: Christine Sanchez on 07-21-2022 Leukocyte esterase Auto test strip Ql (U) Negative Negative [facility] Urobilinogen Auto test strip (U) [Mass/Vol]Ordered By: Christine Sanchez on 07-21-2022 Urobilinogen (U) [Mass/Vol] Normal mg/dL Normal [facility] pH Auto test strip (U)Ordere d By: Christine Sanchez on 07-21-2022 pH (U) 6.0 [pH] 5.0-9.0 [facility] Automated erythrocytes count in urine sediment (number/area)Ordered By: Romel Davis on 04-14-2022 RBC Auto (Urine sed) [#/Area] 5-9 [HPF] [facility] Automated leukocytes count i n urine sediment (number/area)Ordered By: Romel Davis on 04-14-2022 WBC Auto (Urine sed) [#/Area] 0-1 [HPF] [facility] Basophils Auto (Bld) [#/Vol] Ordered By: Romel Davis on 04-14-2022 Basophils (Bld) [#/Vol] 0.0 10*3/uL 0.0-0.2 [facility] Basophils/100 WBC Auto (Bld) Ordered By: Romel Davis on 04-14-2022 Basophils/100 WBC (Bld) 0.6 % [facility] Bilirubin Test strip Ql (U)O rdered By: Romel Davis on 04-14-2022 Bilirubin Ql (U) Negative Negative [facility] Blood hemoglobin measurement (mass/volume)Ordered By: Romel Davis on 04-14-2022 Hemoglobin (Bld) [Mass/Vol] 15.4 g/dL 13.0-17.0 [facility] Blood leukocytes automated c ount (number/volume)Ordered By: Romel Davis on 04-14-2022 WBC (Bld) [#/Vol] 5.8 10*3/uL 4.5-11.0 [facility] Body fluid albumin measureme nt (mass/volume)Ordered By: Romel Davis on 04-14-2022 Albumin (Body fld) [Mass/Vol] 3.9 g/dL 3.2-5.5 [facility] Cholesterol [Mass/volume] in Serum or PlasmaOrdered By: Sascha Sutton on 04-14-2022 Cholesterol [Mass/Vol] 125 mg/dL 140-[address] [facility] Comment on above: Chol less than 200 m g/dl low risk Chol 201-239 mg/dl borderline risk Chol 240 mg/dl and greater high risk Cholesterol in LDL Calc [Mas s/Vol]Ordered By: Sascha Sutton on 04-14-2022 Cholesterol in LDL [Mass/Vol] 69 mg/dL 0-100 [facility] Comment on above: LDL ATP III CLASSIFI CATION LDL less than 100 mg/dL Optimal LDL 100-129 mg/dL Near or above optimal LDL 130-159 mg/dL Borderline high LDL 160-189 mg/dL High LDL greater than 189 mg/dL Very high Cholesterol in VLDL Calc [Ma ss/Vol]Ordered By: Sascha Sutton on 04-14-2022 Cholesterol in VLDL [Mass/Vol] 15 mg/dL [facility] Color Auto (U)Ordered By: Bridgett Davis on 04-14-2022 Color (U) Yellow Yellow [facility] Creatinine and Glomerular fi ltration rate.predicted panel (S/P/Bld)Ordered By: Romel Davis on 04-14-2022 Creatinine [Mass/Vol] 0.86 mg/dL 0.64-1.27 [facility] Eosinophils Auto (Bld) [#/Vo l]Ordered By: Romel Davis on 04-14-2022 Eosinophils (Bld) [#/Vol] 0.1 10*3/uL 0.0-0.45 [facility] Eosinophils/100 WBC Auto (Bl d)Ordered By: Romel Davis on 04-14-2022 Eosinophils/100 WBC (Bld) 1.5 % [facility] Erythrocyte distribution wid th Auto (RBC) [Ratio]Ordered By: Romel Davis on 04-14-2022 Erythrocyte distribution width (RBC) [Ratio] 14.6 % 12.0-14.8 [facility] Erythrocyte sedimentation ra te by Photometric methodOrdered By: Romel Davis on 04-14-2022 ESR Photometric method (Bld) [Velocity] 5 mm/hr 0-19 [facility] Estimated glomerular filtrat ion rate (GFR) non- AmericanOrdered By: Romel Davis on 04-14-2022 GFR/1.73 sq M.predicted among non-blacks MDRD (S/P/Bld) [Vol rate/Area] > 60 mL/Min [facility] Globulin Calc (S) [Mass/Vol] Ordered By: Romel Davis on 04-14-2022 Globulin (S) [Mass/Vol] 2.3 g/dL [facility] Hematocrit Auto (Bld) [Volum e fraction]Ordered By: Romel Davis on 04-14-2022 Hematocrit (Bld) [Volume fraction] 45.0 % 38.8-50.0 [facility] Ketones Auto test strip (U) [Mass/Vol]Ordered By: Romel Davis on 04-14-2022 Ketones (U) [Mass/Vol] Trace Negative [facility] Laboratory - Hematology and Cell countsOrdered By: Romel Davis on 04-14-2022 Nucleated RBC/100 WBC (Bld) [Ratio] 0.1 % 0-0.5 [facility] Laboratory - UrinalysisOrder ed By: Romel Davis on 04-14-2022 Hyaline casts LM Ql (Urine sed) 0-8 [LPF] [facility] Lymphocytes Auto (Bld) [#/Vo l]Ordered By: Romel Davis on 04-14-2022 Lymphocytes (Bld) [#/Vol] 0.6 10*3/uL 1.00-4.8 [facility] Lymphocytes/100 WBC Auto (Bl d)Ordered By: Romel Davis on 04-14-2022 Lymphocytes/100 WBC (Bld) 10.9 % [facility] MCH Auto (RBC) [Entitic mass ]Ordered By: Romel Davis on 04-14-2022 MCH (RBC) [Entitic mass] 30.5 pg 27.5-35.2 [facility] MCHC Auto (RBC) [Mass/Vol]Or dered By: Romel Davis on 04-14-2022 MCHC (RBC) [Mass/Vol] 34.2 g/dL 32.5-35.6 [facility] MCV Auto (RBC) [Entitic vol] Ordered By: Romel Davis on 04-14-2022 MCV (RBC) [Entitic vol] 89.3 fL 83.5-101 [facility] Monocytes Auto (Bld) [#/Vol] Ordered By: Romel Davis on 04-14-2022 Monocytes (Bld) [#/Vol] 0.7 10*3/uL 0.0-0.8 [facility] Monocytes/100 WBC Auto (Bld) Ordered By: Romel Davis on 04-14-2022 Monocytes/100 WBC (Bld) 12.2 % [facility] Neutrophils Auto (Bld) [#/Vo l]Ordered By: Romel Davis on 04-14-2022 Neutrophils (Bld) [#/Vol] 4.4 10*3/uL 1.8-7.7 [facility] Neutrophils/100 WBC Auto (Bl d)Ordered By: Romel Davis on 04-14-2022 Neutrophils/100 WBC (Bld) 74.8 % [facility] Nitrite Test strip Ql (U)Ord ered By: Romel Davis on 04-14-2022 Nitrite Ql (U) Negative Negative [facility] No Panel InformationOrdered By: Romel Davis on 04-14-2022 Estimated GFR () > 60 mL/Min [facility] Comment on above: GFR estimated refere nce range: According to KDOQI guidelines, <60 ml/min/1.73m2 is sufficient to diagnose a patient with chronic kidney disease. Pharmacy Creatinine Clearance (Chem N/A [facility] No Panel InformationOrdered By: Sascha Sutton on 04-14-2022 Prostate Specific Antigen Screen 1.930 ng/mL 0.000-4.00 0 [facility] Platelet mean volume Auto (B ld) [Entitic vol]Ordered By: Romel Davis on 04-14-2022 Platelet mean volume (Bld) [Entitic vol] 8.8 fL 6.6-10.1 [facility] Platelets Auto (Bld) [#/Vol] Ordered By: Romel Davis on 04-14-2022 Platelets (Bld) [#/Vol] 181 10*3/uL 150-450 [facility] Protein Auto test strip (U) [Mass/Vol]Ordered By: Romel Davis on 04-14-2022 Protein (U) [Mass/Vol] Trace mg/dL Negative [facility] Protein [Mass/volume] in Ser um or PlasmaOrdered By: Romel Davis on 04-14-2022 Protein [Mass/Vol] 6.2 g/dL 6.1-7.9 [facility] RBC Auto (Bld) [#/Vol]Ordere d By: Romel Davis on 04-14-2022 RBC (Bld) [#/Vol] 5.03 10*6/uL 3.90-5.60 [facility] Serum or plasma alanine calvert otransferase measurement without P-5'-P (enzymatic activiOrdered By: Romel Davis on 04-14-2022 ALT No additional P-5'-P [Catalytic activity/Vol] 27 U/L 10-60 [facility] Serum or plasma albumin/glob ulin mass ratioOrdered By: Romel Davis on 04-14-2022 Albumin/Globulin [Mass ratio] 1.7 {ratio} [facility] Serum or plasma alkaline kelsie sphatase measurement (enzymatic activity/volume)Ordered By: Romel Davis on 04-14-2022 ALP [Catalytic activity/Vol] 77 U/L 32-92 [facility] Serum or plasma aspartate am inotransferase measurement (enzymatic activity/volume)Ordered By: Romel Davis on 04-14-2022 AST [Catalytic activity/Vol] 20 U/L 10-42 [facility] Serum or plasma calcium ophelia urement (mass/volume)Ordered By: Romel Davis on 04-14-2022 Calcium [Mass/Vol] 9.0 mg/dL 8.2-10.2 [facility] Serum or plasma chloride arelis surement (moles/volume)Ordered By: Romel Davis on 04-14-2022 Chloride [Moles/Vol] 104 mmol/L 95-114 [facility] Serum or plasma glucose ophelia urement (mass/volume)Ordered By: Romel Davis on 04-14-2022 Glucose [Mass/Vol] 110 mg/dL 70-100 [facility] Comment on above: ADA recommended refe rence range Random Glucose Reference Range is dependent on time and content of last meal. Glucose of more than 200 mg/dL in a nonstressed, ambulatory subject supports the diagnosis of Diabetes Mellitus. Serum or plasma high density lipoprotein (HDL) cholesterol measurementOrdered By: Sascha Sutton on 04-14-2022 Cholesterol in HDL [Mass/Vol] 41 mg/dL 29-71 [facility] Comment on above: HDL CHOL ATP-III CLA SSIFICATION Cardiovascular Risk HDL > or equal to 60 mg/dL LOW HDL < 40 mg/dL HIGH Serum or plasma potassium me asurement (moles/volume)Ordered By: Romel Davis on 04-14-2022 Potassium [Moles/Vol] 3.9 mmol/L 3.5-5.1 [facility] Serum or plasma sodium measu rement (moles/volume)Ordered By: Romel Davis on 04-14-2022 Sodium [Moles/Vol] 136 mmol/L 136-146 [facility] Serum or plasma total biliru bin measurement (mass/volume)Ordered By: Romel Davis on 04-14-2022 Bilirubin [Mass/Vol] 0.9 mg/dL 0.3-1.2 [facility] Serum or plasma total carbon dioxide measurement (moles/volume)Ordered By: Romel Davis on 04-14-2022 CO2 [Moles/Vol] 21.2 mmol/L 22.0-30.0 [facility] Serum or plasma total choles terol/high density lipoprotein (HDL) cholesterol mass ratOrdered By: Sascha Sutton on 04-14-2022 Cholesterol.total/Chol esterol in HDL [Mass ratio] 3.0 {ratio} [facility] Serum or plasma urea nitroge n measurement (mass/volume)Ordered By: Romel Davis on 04-14-2022 Urea nitrogen [Mass/Vol] 16 mg/dL 9-23 [facility] Specific gravity Auto test s trip (U) [Rel density]Ordered By: Romel Davis on 04-14-2022 Specific gravity (U) [Rel density] 1.025 1.001-1.03 0 [facility] Squamous epithelial cells de tection in urine sediment by light microscopyOrdered By: Romel Davis on 04-14-2022 Epithelial cells.squamous LM Ql (Urine sed) 0-1 [HPF] [facility] Triglyceride [Mass/volume] i n Serum or PlasmaOrdered By: Sascha Sutton on 04-14-2022 Triglyceride [Mass/Vol] 75 mg/dL 35-149 [facility] Comment on above: TRIG ATP III CLASSIF ICATION TRIG less than 150 mg/dL Normal TRIG 150-199 mg/dL Borderline high TRIG 200-500 mg/dL High TRIG greater than 500 mg/dL Very high Standard traceable to the Center for Disease Conrtrol and Prevention (CDC) test method. Urine bacteria detection by automated methodOrdered By: Romel Davis on 04-14-2022 Bacteria Auto Ql (U) None seen None Seen [facility] Urine clarity by refractomet ry automatedOrdered By: Romel Davis on 04-14-2022 Clarity Refractometry automated (U) Turbid Clear [facility] Urine glucose measurement by automated test strip (mass/volume)Ordered By: Romel Davis on 04-14-2022 Glucose Auto test strip (U) [Mass/Vol] Normal mg/dL Normal [facility] Urine hemoglobin detection b y automated test stripOrdered By: Romel Davis on 04-14-2022 Hemoglobin Auto test strip Ql (U) Negative Negative [facility] Urine leukocyte esterase det ection by automated test stripOrdered By: Romel Davis on 04-14-2022 Leukocyte esterase Auto test strip Ql (U) Negative Negative [facility] Urobilinogen Auto test strip (U) [Mass/Vol]Ordered By: Romel Davis on 04-14-2022 Urobilinogen (U) [Mass/Vol] Normal mg/dL Normal [facility] pH Auto test strip (U)Ordere d By: Romel Davis on 04-14-2022 pH (U) 5.5 [pH] 5.0-9.0 [facility] CT CSPINE WO CONon 2 CT CSPINE [...] by: PRIMO GALE Date: 2022-04-09 17:03 Normal [facility] CT HEAD WO CONon 04-09-2022 CT [...] by: PRIMO GALE Date: 2022-04-09 17:00 Normal [facility] CT TSPINE WO CONon CT TSPINE [...] by: PRIMO GALE Date: 2022-04-09 17:10 Normal [facility] CT ABDOMEN AND PELVIS W/O CO NTRASTon 04-25-2018 CT ABDOMEN AND PELVIS W/O CONTRAST Performed at [facility] APPROVED BY: JOSE CRUZ HOLLEY MD Addendum [...] the detailed report for complete information. Normal [facility] Comprehensive Panelon 2017 Albumin 4.3 g/dL Normal 3.4-5.0 [facility] Comment on above: Performed By: #### S P14 ####[address] [address] Alkaline phosphatase (ALP) 87 U/L Normal 46-116 [facility] Comment on above: Performed By: #### S P14 ####[address] [address] ALT-SGPT Blood 38 U/L Normal 12-78 [facility] Comment on above: Performed By: #### S P14 ####[address] [address] Anion gap 13 mmol/L Normal 8-16 [facility] Comment on above: Performed By: #### S P14 ####[facility] [place], [place] [address] AST-SGOT Blood 22 U/L Normal 15-46 [facility] Comment on above: Performed By: #### S P14 ####[address] [address] Bilirubin Ql (U) 0.9 mg/dL Normal 0.2-1.0 [facility] Comment on above: Performed By: #### S P14 ####[place] [address] BUN (urea nitrogen) 20 mg/dL High 7-18 [facility] Comment on above: Performed By: #### S P14 ####[place] [address] Calcium 9.0 mg/dL Normal 8.5-10.1 [facility] Comment on above: Performed By: #### S P14 ####[place] [address] Chloride 104 mmol/L Normal 98-107 [facility] Comment on above: Performed By: #### S P14 ####[place] [address] CO2 24 mmol/L Normal 21-32 [facility] Comment on above: Performed By: #### S P14 ####[place] [address] Creatinine 0.93 mg/dL Normal 0.67-1.17 [facility] Comment on above: Performed By: #### S P14 ####[place] [address] Glucose mass conc 142 mg/dL High 70-99 [facility] Comment on above: Performed By: #### S P14 ####[place] [address] Potassium molar conc 3.8 mmol/L Normal 3.5-5.1 [facility] Comment on above: Performed By: #### S P14 ####[place] [address] Protein 7.4 g/dL Normal 6.4-8.2 [facility] Comment on above: Performed By: #### S P14 ####[facility] [place] [address] Sodium 137 mmol/L Normal 136-145 [facility] Comment on above: Performed By: #### S P14 ####[place] [address] ED NOTEon 04-25-2018 ED NOTE HNO ID: [id number] Author: Minerva (Rn) Duane RN Service: Emergency Medicine Author Type: Registered Nurse Type: ED Notes Filed: 04/25/2018 5:51 AM Note Text: Voided 150 cc light yellow urine which was strained: no stone noted Normal [facility] ED NOTE HNO ID: [id number] Author: Minerva GarciaRn) Duane, KATHE Service: Emergency Medicine Author Type: Registered Nurse Type: ED Notes Filed: 04/25/2018 3:34 AM Note Text: Patient returned to the Emergency Department. Normal [facility] ED NOTE HNO ID: [id number] Author: Valentine GarciaRn) KATHE Stratton Service: Emergency Medicine Author Type: Registered Nurse Type: ED Notes Filed: 04/25/2018 3:30 AM Note Text: Patient transported to ct/cart Normal [facility] ED NOTE HNO ID: [id number] Author: Valentine GarciaRn) KATHE Stratton Service: Emergency Medicine Author Type: Registered Nurse Type: ED Notes Filed: 04/25/2018 3:21 AM Note Text: Warm b lanket given, labs drawn with IV start AND sent, medicated for paIN PER ORDER Normal [facility] ED NOTE HNO ID: [id number] thor: Minerva (Rn) DIEGO Zepedaervice: Emergency MedicineAuthor Type: Registered NurseType: ED NotesFiled: 04/25/2018 2:55 AMNote Text:c/o pain left lower abdomen that began around 12:30 AM-- pain woke pt upand is assoc with nausea. Vomited small amt food particles upon arrival toed Rm Normal [facility] ED PROV NOTEon 04-25-2018 ED PROV NOTE HNO ID: [id number] thor: STEPHANIE Gillervice: Emergency MedicineAuthor Type: PhysicianType: ED Provider NotesFiled: 04/25/2018 6:48 AMNote Text:ED Provider NotePatient Name: Valentin TorreMRN: [id number] DATE: 04/25/18HistoryPatient presents with:Abdominal PainPatient is a [...] 10.24 (*) 1.35 - 7.21 thou/cmm Abs. [place] 0.84 (*) 0.19 - 0.80 thou/cmm All [...] up withurology as an [place]. [place]-upwith the urologist there. He was discharged home in improved condition.He is happy with his care and comfortable with the plan.ED Course / Clinical ImpressionClinical Impressions as of Apr 25 0647Ureteral calculus, leftHydronephrosis with urinary obstruction due to renal calculusPlanSIGNATURE: Jose De Jesus Gill MD04/25/18 0648 Normal [facility] Hemogram/Diffon 04-25-2018 Abs. Baso 0.02 thou/cmm Normal 0.00-0.08 [facility] Comment on above: Performed By: #### S CBCD ####[place] [address] Abs. [place] 0.84 thou/cmm High 0.19-0.80 [facility] Comment on above: Performed By: #### S CBCD ####[place] [address] Abs. Neut (ANC) 10.24 thou/cmm High 1.35-7.21 [facility] Comment on above: Performed By: #### S CBCD ####[place] [address] Basophils/100 WBC Auto (Bld) 0.2 % Normal [facility] Comment on above: Performed By: #### S CBCD ####[place] [address] Eosinophils 0.04 thou/cmm Normal 0.00-0.36 [facility] Comment on above: Performed By: #### S CBCD ####[address] [address] Eosinophils/100 leukocytes 0.3 % Normal [facility] Comment on above: Performed By: #### S CBCD ####[address] [address] Erythrocyte distribution width Auto Ratio (RBC) 13.7 % Normal 11.8-14.5 [facility] Comment on above: Performed By: #### S CBCD ####[address] [address] Erythrocytes (RBC) 5.26 mil/cmm Normal 4.22-5.80 [facility] Comment on above: Performed By: #### S CBCD ####[address] [address] Hematocrit (HCT) 47.0 % Normal 39.6-50.7 [facility] Comment on above: Performed By: #### S CBCD ####[address] [address] Hemoglobin mass conc (Bld) 16.2 g/dL Normal 13.2-17.4 [facility] Comment on above: Performed By: #### S CBCD ####[address] [address] Lymphocytes 0.83 thou/cmm Normal 0.68-2.93 [facility] Comment on above: Performed By: #### S CBCD ####[address] [address] Lymphocytes/100 leukocytes 6.9 % Normal [facility] Comment on above: Performed By: #### S CBCD ####[address] [address] MCH 30.8 pg Normal 27.4-32.8 [facility] Comment on above: Performed By: #### S CBCD ####[address] [address] MCHC mass conc (RBC) 34.5 % Normal 31.9-35.6 [facility] Comment on above: Performed By: #### S CBCD ####[address] [address] MCV 89.4 fL Normal 81.8-95.6 [facility] Comment on above: Performed By: #### S CBCD ####[address] [address] Monocytes/100 leukocytes 7.0 % Normal [facility] Comment on above: Performed By: #### S CBCD ####[address] [address] Platelet mean volume (PMV) 10.1 fL Normal 8.8-12.1 [facility] Comment on above: Performed By: #### S CBCD ####[address] [address] Platelets 169 thou/cmm Normal 150-370 [facility] Comment on above: Performed By: #### S CBCD ####[address] [address] Seg Neutrophil 85.6 % Normal [facility] Comment on above: Performed By: #### S CBCD ####[address] [address] WBC (Leukocytes) 12.0 thou/cmm High 4.4-9.7 [facility] Comment on above: Performed By: #### S CBCD ####[address] [address] Lipase Bloodon 04-25-2018 Lipase Blood 155 U/L Normal 73-393 [facility] Comment on above: Performed By: #### S LIP ####[address] [address] MDRD eGFRon 04-25-2018 eGFR (non-black) mL/min/{1.73_m2} Normal >60mL/m in/ 1.73m2 [facility] Comment on above: Result Comment: If t he patient is , multiply the result by 1.210. Performed By: #### S GFR ####[address], [place] [address] Urinalysis Routineon 018 Bilirubin Urine Negative Normal Negative [facility] Comment on above: Performed By: #### S URIN ####[facility] [place], [place] [address] Ep Cells Urine NONE Normal 0-5 [facility] Comment on above: Performed By: #### S URIN ####[facility] [place] [address] Hemoglobin,Urine TRACE-INTACT Abnormal Negative [facility] Comment on above: Performed By: #### S URIN ####[place] [address] Ketone Urine 15 mg/dL Abnormal Negative [facility] Comment on above: Performed By: #### S URIN ####[place] [address] Nitrites Urine Negative Normal Negative [facility] Comment on above: Performed By: #### S URIN ####[address] [address] Protein Urine Negative Normal Negative [facility] Comment on above: Performed By: #### S URIN ####[place] [address] Specific [place], Ur 1.020 Normal 1.005-1 .03 0 [facility] Comment on above: Performed By: #### S URIN ####[address] [address] Urine, appearance CLEAR Normal [facility] Comment on above: Performed By: #### S URIN ####[address] [address] Urine, bacteria in sediment NONE Normal None [facility] Comment on above: Performed By: #### S URIN ####[address] [address] Urine, color YELLOW Normal [facility] Comment on above: Performed By: #### S URIN ####[address] [address] Urine, erythrocytes in sediment by area 7-12 Normal 0-3 [facility] Comment on above: Performed By: #### S URIN ####[facility] [place], [place] [address] Urine, glucose presence Negative Normal Negative [place] [facility] Comment on above: Performed By: #### S URIN ####[facility] [place], [place] [address] Urine, leukocytes in sedmiment 0-2 Normal 0-5 [place] [facility] Comment on above: Performed By: #### S URIN ####[facility] [place], [place] [address] Urine, pH 7.0 [pH] Normal 5.0-8.[address] [place] [facility] Comment on above: Performed By: #### S URIN ####[address] [address] Urobilinogen,Ur 0.2 EU/dL Normal 0.0-1.0 [place] Comment on above: Performed By: #### S URIN ####[address] [address] WBC (Leukocytes) Negative Normal Negative [place] [facility] Comment on above: Performed By: #### S URIN ####[place] [address] Vital Signs Date Time Vital Sign Value Performing Clinician Facility 05-28-2024 08:56-0400 Body height 172.72 cm DO Moburst Work Phone: [facility] 05-28-2024 08:56-0400 Body mass index (BMI) [Ratio] 31.8 kg/m2 DO Moburst Work Phone: [facility] 05-28-2024 08:56-0400 Body weight 95 kg DO Moburst Work Phone: [facility] 05-15-2024 14:48-0400 Blood Pressure Location LEAH ROA [facility] 05-15-2024 14:48-0400 Diastolic blood pressure 78 mm[Hg] LEAH COLBERTRY [facility] 05-15-2024 14:48-0400 Heart rate 80 /min LEAH BILL [facility] 05-15-2024 14:48-0400 Respiratory rate 16 /min LEAH BILL [facility] 05-15-2024 14:48-0400 Systolic blood pressure 132 mm[Hg] LEAH BILL [facility] 04-24-2024 10:48-0400 Body height 172.72 cm DO Sascha Furlong Work Phone: [facility] 04-24-2024 10:48-0400 Body mass index (BMI) [Ratio] 32.1 kg/m2 DO Sascha Furlong Work Phone: [facility] 04-24-2024 10:48-0400 Body weight 95.76 kg DO Sascha Furlong Work Phone: [facility] 04-09-2024 12:35-0400 Diastolic blood pressure 68 mm[Hg] DO Sascha Furlong Work Phone: [facility] 04-09-2024 12:35-0400 Heart rate 63 /min DO Sascha Furlong Work Phone: [facility] 04-09-2024 12:35-0400 Respiratory rate 16 /min DO Sascha Furlong Work Phone: [facility] 04-09-2024 12:35-0400 SaO2% (BldA) [Mass fraction] 98 % DO Sascha Furlong Work Phone: [facility] 04-09-2024 12:35-0400 Systolic blood pressure 107 mm[Hg] DO Sascha Furlong Work Phone: [facility] 04-09-2024 12:05-0400 Inhaled oxygen flow rate 4 L/min DO Sascha Furlong Work Phone: [facility] 04-09-2024 10:16-0400 Body height 172.72 cm DO Sascha Furlong Work Phone: [facility] 04-09-2024 10:16-0400 Body mass index (BMI) [Ratio] 32.1 kg/m2 DO Sascha Furlong Work Phone: [facility] 04-09-2024 10:16-0400 Body weight 96 kg DO Sascha Furlong Work Phone: [facility] 04-09-2024 09:12-0400 Body temperature 97.8 [degF] DO Sascha Furlong Work Phone: [facility] 03-29-2024 11:07-0400 Body height 172.72 cm DO Sascha Furlong Work Phone: [facility] 03-29-2024 11:07-0400 Body mass index (BMI) [Ratio] 32.2 kg/m2 DO Sascha Furlong Work Phone: [facility] 03-29-2024 11:07-0400 Body weight 96.16 kg DO Sascha Furlong Work Phone: [facility] 03-20-2024 12:09-0400 Blood Pressure Location Daria Orzech [facility] 03-20-2024 12:09-0400 Body temperature 97.52 [degF] Daria Orzech [facility] 03-20-2024 12:09-0400 Diastolic blood pressure 74 mm[Hg] Daria Orzech [facility] 03-20-2024 12:09-0400 Heart rate 73 /min Daria Orzech [facility] 03-20-2024 12:09-0400 Respiratory rate 19 /min Daria Orzech [facility] 03-20-2024 12:09-0400 Systolic blood pressure 124 mm[Hg] Daria Orzech [facility] 02-21-2024 10:29-0400 Body height 172.72 cm DO Sascha Furlong Work Phone: [facility] 02-21-2024 10:29-0400 Body mass index (BMI) [Ratio] 32.6 kg/m2 DO Sascha Furlong Work Phone: [facility] 02-21-2024 10:29-0400 Body weight 97.52 kg DO Sascha Furlong Work Phone: [facility] 02-09-2024 13:46-0400 Body height 172.72 cm DO Sascha Furlong Work Phone: [facility] 02-09-2024 13:46-0400 Body mass index (BMI) [Ratio] 32.3 kg/m2 DO Sascha Furlong Work Phone: [facility] 02-09-2024 13:46-0400 Body weight 96.61 kg DO Sascha Furlong Work Phone: [facility] 01-02-2024 23:55-0500 Body height 172.72 cm DO Sascha Furlong Work Phone: [facility] 01-02-2024 23:55-0500 Body temperature 97.4 [degF] DO Sascha Furlong Work Phone: [facility] 01-02-2024 23:55-0500 Body weight 100.3 kg DO Sascha Furlong Work Phone: [facility] 01-02-2024 23:55-0500 Diastolic blood pressure 100 mm[Hg] DO Sascha Furlong Work Phone: [facility] 01-02-2024 23:55-0500 Heart rate 74 /min DO Sascha Furlong Work Phone: [facility] 01-02-2024 23:55-0500 Respiratory rate 20 /min DO Sascha Furlong Work Phone: [facility] 01-02-2024 23:55-0500 SaO2% (BldA) [Mass fraction] 96 % DO Sascha Furlong Work Phone: [facility] 01-02-2024 23:55-0500 Systolic blood pressure 155 mm[Hg] DO Sascha Furlong Work Phone: [facility] 12-30-2023 09:40-0500 Body height 172.72 cm [employer] Other [employer] Other 12-30-2023 09:40-0500 Body mass index (BMI) [Ratio] 32.99 kg/m2 [employer] Other [employer] Other 12-30-2023 09:40-0500 Body weight 98.43 kg Мария Hernandez Other [employer] Other 12-14-2023 09:34-0500 Body height 172.7 cm SaschaConvo Communicationsng DO Work Phone: [employer] 12-14-2023 09:34-0500 Body mass index (BMI) [Ratio] 33.49 kg/m2 Sascha Millicanlong DO Work Phone: [employer] 12-14-2023 09:34-0500 Body temperature 97.59 [degF] Sascha Furlong DO Work Phone: [facility] 12-14-2023 09:34-0500 Body weight 99.88 kg Sascha Furlong DO Work Phone: [facility] 12-14-2023 09:34-0500 Diastolic blood pressure 68 mm[Hg] Sascha Furlong DO Work Phone: [facility] 12-14-2023 09:34-0500 Heart rate 75 /min Sascha Furlong DO Work Phone: [facility] 12-14-2023 09:34-0500 Respiratory rate 20 /min Sascha Furlong DO Work Phone: [facility] 12-14-2023 09:34-0500 SaO2% (BldA) [Mass fraction] 96 % Sascha Furlong DO Work Phone: [facility] 12-14-2023 09:34-0500 Systolic blood pressure 122 mm[Hg] Sascha Furlong DO Work Phone: [facility] 09-19-2023 09:39-0400 Blood Pressure Location Zac MUNIZ [facility] 09-19-2023 09:39-0400 Diastolic blood pressure 77 mm[Hg] Zac MUNIZ [facility] 09-19-2023 09:39-0400 Heart rate 64 /min Zac MUNIZ [facility] 09-19-2023 09:39-0400 Respiratory rate 16 /min Zac MUNIZ [facility] 09-19-2023 09:39-0400 Systolic blood pressure 126 mm[Hg] Zac MUNIZ [facility] 05-18-2023 09:00-0400 Body weight 20 mg DO Sascha Furlong Work Phone: [facility] 05-09-2023 10:34-0400 Body height 172.72 cm Sascha G Furlong Work Phone: [facility] [address] DO Work Phone: 05-09-2023 10:34-0400 Body mass index (BMI) [Ratio] 32.54 kg/m2 Sascha G Furlong Work Phone: [facility] [address] DO Work Phone: 05-09-2023 10:34-0400 Body surface area Derived from formula 2.1 m2 Sascha G Furlong Work Phone: [facility] [address] DO Work Phone: 05-09-2023 10:34-0400 Body weight 97.07 kg Sascha G Furlong Work Phone: [facility] [address] DO Work Phone: 05-09-2023 10:34-0400 Diastolic blood pressure 60 mm[Hg] Sascha G Furlong Work Phone: [facility] [address] DO Work Phone: 05-09-2023 10:34-0400 Heart rate 78 /min Sascha G Furlong Work Phone: [facility] DO Work Phone: 05-09-2023 10:34-0400 Systolic blood pressure 88 mm[Hg] Sascha G Furlong Work Phone: [facility] DO Work Phone: 05-07-2023 19:59-0400 Diastolic blood pressure 67 mm[Hg] DO Sascha Furlong Work Phone: [facility] 05-07-2023 19:59-0400 Heart rate 68 /min DO Sascha Furlong Work Phone: [facility] 05-07-2023 19:59-0400 Respiratory rate 18 /min DO Sascha Furlong Work Phone: [facility] 05-07-2023 19:59-0400 SaO2% (BldA) [Mass fraction] 96 % DO Sascha Furlong Work Phone: [facility] 05-07-2023 19:59-0400 Systolic blood pressure 122 mm[Hg] DO Sascha Furlong Work Phone: [facility] 05-07-2023 18:27-0400 Body height 172.72 cm DO Sascha Furlong Work Phone: [facility] 05-07-2023 18:27-0400 Body temperature 99 [degF] DO Sascha Furlong Work Phone: [facility] 05-07-2023 18:27-0400 Body weight 94.95 kg DO Sascha Furlong Work Phone: [facility] 05-03-2023 05:30-0400 Diastolic blood pressure 60 mm[Hg] DO Sascha Furlong Work Phone: [facility] 05-03-2023 05:30-0400 Heart rate 74 /min DO Sascha Furlong Work Phone: [facility] 05-03-2023 05:30-0400 Respiratory rate 18 /min DO Sascha Furlong Work Phone: [facility] 05-03-2023 05:30-0400 SaO2% (BldA) [Mass fraction] 96 % DO Sascha Furlong Work Phone: [facility] 05-03-2023 05:30-0400 Systolic blood pressure 101 mm[Hg] DO Sascha Furlong Work Phone: [facility] 05-03-2023 02:29-0400 Body height 172.72 cm DO Sascha Furlong Work Phone: [facility] 05-03-2023 02:29-0400 Body temperature 97.9 [degF] DO Sascha Furlong Work Phone: [facility] 05-03-2023 02:29-0400 Body weight 97.52 kg DO Sascha Furlong Work Phone: [facility] 04-04-2023 15:54-0400 Diastolic blood pressure 55 mm[Hg] DO Sascha Furlong Work Phone: [facility] 04-04-2023 15:54-0400 Heart rate 54 /min DO Sascha Furlong Work Phone: [facility] 04-04-2023 15:54-0400 Respiratory rate 16 /min DO Sascha Furlong Work Phone: [facility] 04-04-2023 15:54-0400 SaO2% (BldA) [Mass fraction] 95 % DO Sascha Furlong Work Phone: [facility] 04-04-2023 15:54-0400 Systolic blood pressure 98 mm[Hg] DO Sascha Furlong Work Phone: [facility] 04-04-2023 09:55-0400 Body height 172.72 cm DO Sascha Furlong Work Phone: [facility] 04-04-2023 09:55-0400 Body temperature 97.5 [degF] DO Sascha Furlong Work Phone: [facility] 04-04-2023 09:55-0400 Body weight 98.7 kg DO Sascha Furlong Work Phone: [facility] 03-30-2023 11:00-0400 Body height 172.72 cm Sascha G Furlong Work Phone: [facility] DO Work Phone: 03-30-2023 11:00-0400 Body mass index (BMI) [Ratio] 32.99 kg/m2 Sascha G Furlong Work Phone: [facility] [facility] DO Work Phone: 03-30-2023 11:00-0400 Body surface area Derived from formula 2.12 m2 Sascha G Furlong Work Phone: [facility] DO Work Phone: 03-30-2023 11:00-0400 Body weight 98.43 kg Sascha G Furlong Work Phone: [facility] [facility] DO Work Phone: 03-30-2023 11:00-0400 Diastolic blood pressure 70 mm[Hg] Sascha G Furlong Work Phone: [facility] [facility] DO Work Phone: 03-30-2023 11:00-0400 Diastolic blood pressure 82 mm[Hg] Sascha G Furlong Work Phone: [facility] DO Work Phone: 03-30-2023 11:00-0400 Heart rate 63 /min Sascha G Furlong Work Phone: [facility] [facility] DO Work Phone: 03-30-2023 11:00-0400 Systolic blood pressure 126 mm[Hg] Sascha G Furlong Work Phone: [facility] DO Work Phone: 03-30-2023 11:00-0400 Systolic blood pressure 134 mm[Hg] Sascha G Furlong Work Phone: [facility] [facility] DO Work Phone: 03-24-2023 11:00-0400 54 1 Sascha Sutton Work Phone: [facility] [facility] DO Work Phone: Comment on above: [id number] Encounters Encounter Date Encounter Type Care Provider Facility Start: 08-20-2024 End: 08-20-2024 ambulatory MD Edenilson Mcleod Work Phone: [facility] Work Phone: Start: 08-20-2024 End: 08-20-2024 Patient encounter procedure MD Edenilson Mcleod Work Phone: [facility] Work Phone: Start: 08-17-2024 End: 08-17-2024 ambulatory KYRA CONKLIN Not Available Start: 08-13-2024 End: 08-13-2024 ambulatory MD Edenilson Mcleod Work Phone: [facility] Work Phone: Start: 08-13-2024 End: 08-13-2024 Patient encounter procedure MD Edenilson Mcleod Work Phone: [facility] Work Phone: Start: 08-13-2024 Non-patient / Non-visit MD Araya Work Phone: [facility] Work Phone: Start: 07-25-2024 End: 07-25-2024 ambulatory MD Edenilson Mcleod Work Phone: [facility] Work Phone: Start: 07-25-2024 End: 07-25-2024 Patient encounter procedure MD Edenilson Mcleod Work Phone: [facility] Work Phone: Start: 07-18-2024 Non-patient / Non-visit MD Araya Work Phone: [facility] Work Phone: Start: 07-18-2024 End: 07-18-2024 Patient encounter procedure MD Edenilson Mcleod Work Phone: [facility] Work Phone: Start: 07-12-2024 End: 07-12-2024 ambulatory MD Edenilson Mcleod Work Phone: [facility] Work Phone: Start: 07-12-2024 End: 07-12-2024 Patient encounter procedure MD Edenilson Mcleod Work Phone: [facility] Work Phone: Start: 07-04-2024 Non-patient / Non-visit MD Araya Work Phone: [facility] Work Phone: Start: 07-04-2024 End: 07-04-2024 ambulatory DO Sascha Furlong Work Phone: [facility] Work Phone: Start: 07-04-2024 End: 07-04-2024 Patient encounter procedure DO Sascha Furlong Work Phone: [facility] Work Phone: Start: 07-03-2024 End: 07-03-2024 Patient encounter procedure DO Sascha Furlong Work Phone: [facility] [address] Work Phone: Start: 07-03-2024 End: 07-03-2024 ambulatory DO Sascha Furlong Work Phone: [facility] Work Phone: Start: 06-26-2024 End: 06-26-2024 ambulatory DO Sascha Furlong Work Phone: [facility] Work Phone: Start: 06-26-2024 End: 06-26-2024 Patient encounter procedure DO Sascha Furlong Work Phone: [facility] Work Phone: Start: 06-13-2024 End: 06-13-2024 ambulatory CARLOS EDEN Not Available Start: 06-06-2024 End: 06-06-2024 ambulatory DO Sascha Furlong Work Phone: [facility] Work Phone: Start: 06-06-2024 End: 06-06-2024 Patient encounter procedure DO Sascha Furlong Work Phone: [facility] Work Phone: Start: 06-06-2024 Non-patient / Non-visit DO Den nis Furlong Work Phone: [facility] Work Phone: Start: 05-30-2024 End: 05-30-2024 ambulatory DO Sascha Furlong Work Phone: [facility] Work Phone: Start: 05-30-2024 End: 05-30-2024 Departed Referred DO Sascha Furlong Work Phone: [facility] [address] [place] Work Phone: Start: 05-28-2024 End: 05-28-2024 ambulatory DO Sascha Furlong Work Phone: [facility] Work Phone: Start: 05-28-2024 End: 05-28-2024 Patient encounter procedure DO Sascha Furlong Work Phone: [facility] Work Phone: Start: 05-16-2024 End: 05-16-2024 ambulatory DO Sascha Furlong Work Phone: [facility] Work Phone: Start: 05-16-2024 End: 05-16-2024 Patient encounter procedure DO Sascha Furlong Work Phone: [facility] Work Phone: Start: 05-16-2024 Non-patient / Non-visit DO Den abelardo Furlong Work Phone: [facility] Work Phone: Start: 05-15-2024 End: 05-15-2024 ambulatory LEAH ROA Facility:[facility] Start: 05-15-2024 End: 05-15-2024 Patient encounter procedure LEAH ROA [facility] Start: 05-09-2024 End: 05-09-2024 ambulatory CARLOS EDEN Not Available Start: 05-02-2024 End: 05-02-2024 ambulatory DO Sascha Furlong Work Phone: [facility] Work Phone: Start: 05-02-2024 End: 05-02-2024 Patient encounter procedure DO Sascha Furlong Work Phone: [facility] Work Phone: Start: 05-01-2024 End: 05-01-2024 ambulatory SASCHA Teagan MARIECIERRA [facility] Start: 04-24-2024 End: 04-24-2024 ambulatory DO Sascha Furlong Work Phone: [facility] Work Phone: Start: 04-24-2024 End: 04-24-2024 Patient encounter procedure DO Sascha Furlong Work Phone: [facility] Neurosurgery Work Phone: Start: 04-18-2024 Non-patient / Non-visit DO Den nis Furlong Work Phone: [facility] Work Phone: Start: 04-18-2024 End: 04-18-2024 ambulatory DO Sascha Furlong Work Phone: [facility] Work Phone: Start: 04-18-2024 End: 04-18-2024 Patient encounter procedure DO Sascha Furlong Work Phone: [facility] Work Phone: Start: 04-11-2024 End: 04-11-2024 ambulatory DO Sascha Furlong Work Phone: [facility] Work Phone: Start: 04-11-2024 End: 04-11-2024 Patient encounter procedure DO Sascha Furlong Work Phone: [facility] Work Phone: Start: 04-09-2024 Non-patient / Non-visit DO Den nis Furlong Work Phone: [facility] Neurosurgery Work Phone: Start: 04-09-2024 End: 04-09-2024 Admission to same day surgery center DO Sascha Furlong Work Phone: [facility] [place] Start: 04-09-2024 End: 04-09-2024 ambulatory DO Sascha Furlong Work Phone: [facility] Work Phone: Start: 04-02-2024 End: 04-02-2024 Departed Referred DO Sascha Furlong Work Phone: [facility] Work Phone: Start: 04-02-2024 End: 04-02-2024 Patient encounter procedure DO Sascha Furlong Work Phone: [facility] Work Phone: Start: 04-02-2024 End: 04-02-2024 ambulatory DO Sascha Furlong Work Phone: [facility] Work Phone: Start: 03-29-2024 End: 03-29-2024 ambulatory DO Sascha Furlong Work Phone: [facility] Work Phone: Start: 03-29-2024 End: 03-29-2024 Patient encounter procedure DO Sascha Furlong Work Phone: [facility] Work Phone: Start: 03-20-2024 End: 03-20-2024 ambulatory Daria X Orzech Facility: [place] Start: 03-20-2024 End: 03-20-2024 Patient encounter procedure Daria X Orzech [facility] Start: 03-13-2024 End: 03-13-2024 Patient encounter procedure DO Sascha Furlong Work Phone: [facility] [address] Work Phone: Start: 03-13-2024 End: 03-13-2024 ambulatory DO Sascha Furlong Work Phone: [facility] Work Phone: Start: 03-08-2024 End: 03-08-2024 Patient encounter procedure DO Sascha Furlong Work Phone: [facility] C[facility] [address] Work Phone: Start: 03-08-2024 End: 03-08-2024 ambulatory DO Sascha Furlong Work Phone: [facility] Work Phone: Start: 02-21-2024 End: 02-21-2024 ambulatory DO Sacsha Furlong Work Phone: [facility] Work Phone: Start: 02-21-2024 End: 02-21-2024 Patient encounter procedure DO Sascha Furlong Work Phone: [facility] Work Phone: Start: 02-16-2024 End: 02-16-2024 ambulatory Zac MUNIZ Facility:[id number] Start: 02-09-2024 End: 02-09-2024 ambulatory DO Sascha Furlong Work Phone: [facility] Work Phone: Start: 02-09-2024 End: 02-09-2024 Patient encounter procedure DO Sascha Furlong Work Phone: [facility] Neurosurgery Work Phone: Start: 01-23-2024 End: 02-20-2024 [facility] Start: 01-18-2024 End: 01-18-2024 ambulatory Zac MUNIZ Facility[facility] Start: 01-18-2024 End: 01-18-2024 Lab Drop off Zac MUNIZ [facility] Start: 01-18-2024 End: 01-18-2024 ambulatory Zac MUNIZ Facility: [place] Start: 01-18-2024 End: 01-18-2024 Patient encounter procedure Zac MUNIZ [facility] [place] Start: 01-11-2024 End: 01-11-2024 Patient encounter procedure DO Sascha Furlong Work Phone: [facility] Ctr-XRay [place] Work Phone: Start: 01-11-2024 End: 01-11-2024 ambulatory DO Sascha Furlong Work Phone: [facility] Work Phone: Start: 01-10-2024 End: 01-10-2024 Patient encounter procedure DO Sascha Furlong Work Phone: [facility]MRI [facility] [place] Work Phone: Start: 01-10-2024 End: 01-10-2024 ambulatory DO Sascha Furlong Work Phone: [facility] Work Phone: Start: 01-02-2024 End: 01-03-2024 Emergency department patient visit DO Sascha Furlong Work Phone: [facility]-Emergency Room Work Phone: Start: 12-30-2023 Office outpatient ne w 45 minutes Мария Hernandez [facility] Neurosurgery Start: 12-30-2023 End: 12-30-2023 Patient encounter procedure DO Sascha Furlong Work Phone: [facility]-XRay [facility] [place] Work Phone: Start: 12-30-2023 End: 12-30-2023 ambulatory DO Sascha Furlong Work Phone: [facility] Work Phone: Start: 12-28-2023 Chart abstracting Zaira pandya DPM Work Phone: [facility] Start: 12-28-2023 End: 12-28-2023 Office outpatient visit 15 minutes Zaira Cain DPM Work Phone: [facility] Comment on above: Pronation deformity of both feet (Primary Dx); Chronic pain of both knees Start: 12-28-2023 End: 12-28-2023 ambulatory ZAIRA CAIN Not Available Start: 12-22-2023 End: 01-20-2024 ambulatory [facility] Start: 12-19-2023 End: 12-22-2023 ambulatory [facility] Start: 12-15-2023 End: 12-15-2023 Patient encounter procedure DO Sascha Kwanng Work Phone: [facility] C[facility]-XRay [place] Work Phone: Start: 12-15-2023 End: 12-15-2023 ambulatory DO Sascha Sutton Work Phone: [facility] Work Phone: Start: 12-14-2023 End: 12-15-2023 ambulatory [facility] Start: 12-14-2023 End: 12-14-2023 Office outpatient visit 25 minutes Sascha Sutton DO Work Phone: [facility] Internal Medicine - Family Medicine Comment on above: Essential hypertensi on (Primary Dx); Hyperlipidemia, unspecified hyperlipidemia type; Midline low back pain without sciatica, unspecified chronicity; Class 1 obesity due to excess calories with serious comorbidity and body mass index (BMI) of 33.0 to 33.9 in adult; 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[facility]); Antiphospholipid syndrome ([facility]); Cubital tunnel syndrome on right; Paresthesias Start: 12-14-2023 End: 12-14-2023 ambulatory [facility] Start: 12-08-2023 End: 12-08-2023 Patient encounter procedure DO Sascha Kwanng Work Phone: [facility] Ctr-Lab [address] Work Phone: Start: 12-08-2023 End: 12-08-2023 ambulatory DO Sascha Marielong Work Phone: [facility] C[facility] Work Phone: Start: 10-20-2023 End: 10-20-2023 Patient encounter procedure DO Sascha Furlong Work Phone: [facility] C[facility] [address] [place] Work Phone: Start: 10-20-2023 End: 10-20-2023 ambulatory DO Sascha Furlong Work Phone: [facility] C[facility] Work Phone: Start: 09-19-2023 End: 09-19-2023 ambulatory Zac MUNIZ Facility:[facility] Start: 09-19-2023 End: 09-19-2023 Patient encounter procedure Zac MUNIZ [facility] Start: 09-12-2023 End: 09-12-2023 Patient encounter procedure DO Sascha Furlong Work Phone: [facility] C[facility]-XRay [facility] [place] Work Phone: Start: 09-12-2023 End: 09-12-2023 ambulatory DO Sascha Furlong Work Phone: [facility] C[facility] Work Phone: Start: 09-05-2023 End: 09-05-2023 Patient encounter procedure DO Sascha Furlong Work Phone: [facility] C[facility]-Lab [address] Work Phone: Start: 09-05-2023 End: 09-05-2023 ambulatory DO Sascha Furlong Work Phone: [facility] C[facility] Work Phone: Start: 08-16-2023 End: 08-16-2023 Patient encounter procedure DO Sascha Furlong Work Phone: [facility] [place] Work Phone: Start: 08-16-2023 End: 08-16-2023 ambulatory DO Sascha Furlong Work Phone: [facility] Work Phone: Start: 08-08-2023 End: 08-08-2023 ambulatory Zac Alvino FLAVIO Facility:[facility] Start: 08-08-2023 End: 08-08-2023 Patient encounter procedure Zacgreyson MUNIZ [facility] Start: 08-04-2023 End: 08-04-2023 Patient encounter procedure DO Sascha Furlong Work Phone: [facility] Work Phone: Start: 08-04-2023 End: 08-04-2023 ambulatory DO Sascha Furlong Work Phone: [facility] Work Phone: Start: 06-03-2023 End: 06-03-2023 ambulatory Zac Alvino FLAVIO Facility:[facility] Start: 06-03-2023 End: 06-03-2023 Patient encounter procedure Zac R MUNIZ [facility] Start: 05-31-2023 End: 05-31-2023 ambulatory DO Sascha Furlong Work Phone: [facility] Work Phone: Start: 05-31-2023 End: 05-31-2023 Patient encounter procedure DO Sascha Furlong Work Phone: [facility] [place] Work Phone: Start: 05-18-2023 End: 05-18-2023 ambulatory DO Sascha Furlong Work Phone: [facility] Work Phone: Start: 05-18-2023 End: 05-18-2023 Patient encounter procedure DO Sascha Furlong Work Phone: [facility] C[facility]-Lab [place] Work Phone: Start: 05-09-2023 Office outpatient vi sit 15 minutes Sascha Candelaria Furlong Work Phone: [facility] 250 DO Work Phone: Start: 05-09-2023 End: 05-09-2023 ambulatory DO Sascha Furlong Work Phone: [facility] Work Phone: Start: 05-09-2023 End: 05-09-2023 Patient encounter procedure DO Sascha Furlong Work Phone: [facility] C[facility]-XRay [facility] [place] Work Phone: Start: 05-07-2023 End: 05-07-2023 Emergency department patient visit DO Sascha Furlong Work Phone: [facility] Ctr-Emergency Room Work Phone: Start: 05-03-2023 End: 05-03-2023 Emergency department patient visit DO Sascha Furlong Work Phone: [facility]-Emergency Room Work Phone: Start: 04-13-2023 End: 04-13-2023 Patient encounter procedure DO Sascha Furlong Work Phone: [facility]-Respiratory Therapy Work Phone: Start: 04-08-2023 End: 04-08-2023 Patient encounter procedure DO Sascha Furlong Work Phone: [facility] C[facility]-Lab [place] Work Phone: Start: 04-04-[address] Alfonso Trujillo Facility:[id number] Start: 04-04-2023 End: 04-04-2023 Admission to same day surgery center DO Sascha Furlong Work Phone: [facility] Ctr-Material Requirements Planning Manager Work Phone: Start: 04-04-2023 End: 04-04-2023 ambulatory DO Sascha Furlong Work Phone: [facility] Work Phone: Start: 03-31-2023 End: 03-31-2023 ambulatory DO Sascha Furlong Work Phone: [facility] Work Phone: Start: 03-31-2023 End: 03-31-2023 Patient encounter procedure DO Sascha Furlong Work Phone: [facility] [employer] Work Phone: Start: 03-30-2023 Office consultation new/estab patient 80 min Sascha G Furlong Work Phone: [facility] 250 DO Work Phone: Start: 03-30-[address] Alfonso Trujillo Facility: Start: 03-29-[address] [facility] Start: 03-20-2023 End: 03-22-2023 ambulatory SHAIKH Claritza MULTANI Facility: Start: 01-31-2023 End: 01-31-2023 ambulatory DO Sascha Furlong Work Phone: [facility] C[facility] Work Phone: Start: 01-31-2023 End: 01-31-2023 Patient encounter procedure DO Sascha Furlong Work Phone: [facility] [address] Work Phone: Start: 10-26-2022 End: 10-26-2022 ambulatory DO Sascha Furlong Work Phone: [facility] C[facility] Work Phone: Start: 10-26-2022 End: 10-26-2022 Patient encounter procedure DO Sascha Furlong Work Phone: [facility] Ctr-Lab [address] Start: 09-29-2022 End: 09-29-2022 ambulatory DO Sascha Furlong Work Phone: [facility] C[facility] Work Phone: Start: 09-29-2022 End: 09-29-2022 Patient encounter procedure DO Sascha Furlong Work Phone: [facility] Ctr-XRay [place] Start: 07-21-2022 End: 07-21-2022 Patient encounter procedure DO Sascha Furlong Work Phone: [facility]-Lab [address] Start: 04-14-2022 End: 04-14-2022 Patient encounter procedure DO Sascha Furlong Work Phone: [facility] C[facility]-Lab [address] Start: 04-09-2022 End: 04-09-[address] AUDIE GONZALES . Facility: Start: 04-25-2018 End: 04-25-2018 Emergency department patient visit REBEKAH REED [facility] Imaging result normal Sascha G F urlong Work Phone: [facility] 250 DO Work Phone: Procedures Date Procedure Procedure Detail Performing Clinician Start: 04-09-2024 Decompression of ulnar nerve DO Sascha F urlong Work Phone: Start: 03-08-2024 MRI of cervical spine without contrast DO Sascha Furlong Work Phone: Start: 01-11-2024 Diagnostic radiography of abdomen DO Den nis Furlong Work Phone: Start: 01-10-2024 MRI of lumbar spine with contrast DO Den nis Furlong Work Phone: Start: 01-03-2024 CT of abdomen and pelvis without contrast DO Sascha Furlong Work Phone: Start: 12-30-2023 X-ray of cervical spine DO Sascha Furlon g Work Phone: Start: 12-30-2023 X-ray of lumbar spine, six views including bending views DO Saschaabelardo Marielong Work Phone: Start: 12-15-2023 X-ray of lumbar spine, two or three views DO Saschaabelardo Marielong Work Phone: Start: 12-14-2023 Adult depression screening assessment Saschaabelardo Marielong DO Work Phone: Start: 09-12-2023 Plain X-ray of right hip DO Saschaabelardo Marielo ng Work Phone: Start: 08-04-2023 Diagnostic radiography of abdomen DO Den abelardo Marielong Work Phone: Start: 05-09-2023 Diagnostic radiography of abdomen DO Den abelardo Marielong Work Phone: Start: 05-03-2023 CT of abdomen and pelvis without contrast DO Saschaabelardo Marielong Work Phone: Start: 04-04-2023 [facility] Angio DO Saschaabelardo Marielong Work Phone: Start: 09-29-2022 X-ray of left foot DO Saschaabelardo Marielong Work Phone: Start: 11-21-2016 Total colonoscopy Saschaabelardo Sutton Work Phone: Arthroplasty of knee Saschaabelardo Marielong Work Phone: Arthroplasty of knee Zac MUNIZ Arthroscopy of knee Zac MUNIZ Cleft palate (disorder) Patr ick MUNIZ Colonoscopy Zacgreyson MUNIZ Decompression of median nerve Saschaabelardo Kwanng Work Phone: Decompression of median nerve Zac MUNIZ Dilation of esophagus Sascha G Cynthialong Work Phone: Esophagogastroduodenoscopy P atrick MUNIZ Hernia repair Saschaabelardo Marielo ng Work Phone: Malignant neoplasm o f skin (disorder) Zac MUNIZ Operation on the ear Sascha Sutton Work Phone: Operative procedure on knee Sascha Sutton Work Phone: Operative procedure on spinal structure Sascha Sutton Work Phone: Procedure on shoulder Ronni k FLAVIO Procedure on spine Zac W ATEMERE Repair of cleft palate Garth Sutton Work Phone: Repair of middle ear Sascha Sutton Work Phone: Repair of middle ear Zac MUNIZ Repair of shoulder Sascha Sutton Work Phone: Surgical procedure on eye proper Sascha Sutton Work Phone: Upper limb structure (body structure) LEAH ROA Plan of Treatment Date Care Activity Detail Author Start: 05-20-2033 DTaP,Tdap and Td Vac cines (3 - Td or Tdap) DTaP,Tdap and Td Vaccines (3 - Td [facility] Tdap) [facility] Start: 12-14-2024 Adult BMI Screening [facility] Start: 12-14-2024 Depression Screening Depression Scre [facility]ing [facility] Start: 12-14-2024 Fall Risk Screening Fall Risk [facility] Start: 12-14-2024 Tobacco Screening Tobacco [facility]ening [facility] Start: 09-03-2024 ambulatory Ambulatory Facility:[facility] Start: 07-03-2024 Hemolytic complement CH50 [facility] Start: 06-14-2024 End: 06-14-2024 Patient encounter procedure 06/14/2024 1:30 PM EDT [facility] [address] [place] [phone] Sascha Sutton, DO [address] [place] [address] [facility] Start: 05-01-2024 End: 05-01-2024 Patient encounter procedure 05/01/2024 10:20 AM EDT Office Visit [facility] [address] [place] [address] [facility] Start: 04-14-2024 Medicare Annual Well ness Visit Medicare Annual Wellness Visit [facility] Start: 04-09-2024 Hospital admission [facility] Start: 04-09-2024 End: 04-09-2024 [facility] Start: 03-13-2024 Hemolytic complement CH50 level [facility] Start: 01-25-2024 End: 01-25-2024 Patient encounter procedure 01/25/2024 11:15 AM EST Office Visit [facility] [address] [place] [phone] Zaira Cain DPM [address] [place] [address] [facility] Start: 01-10-2024 MRI of lumbar spine with contrast MR lumbar spine wo/w con [facility] Start: 01-03-2024 CT Abdomen and Pelvi s WO contrast [facility] Start: 01-03-2024 CT of abdomen and pe lvis without contrast CT abdomen pelvis wo [facility] Start: 12-28-2023 End: 12-28-2023 Patient encounter procedure 12/28/2023 2:00 PM EST Office Visit [facility] [address] [place] [phone] Zaira Cain DPM [address] [place] [address] [facility] Start: 12-14-2023 End: 12-14-2024 XR Lumbar spine 2 or 3 Views X-ray spine lumbar 2 or 3 views Imaging Routine Midline low back pain without sciatica, unspecified chronicity Expected: 12/14/2023, Expires: 12/14/2024 [facility] Work Phone: Comment on above: Expected: 12/14/2023 , Expires: 12/14/2024 Start: 12-08-2023 Hemolytic complement CH50 level [facility] Start: 10-18-2023 COVID-19 Vaccine () COVID-19 Vaccine () [facility] Start: 09-05-2023 Hemolytic complement CH50 [facility] Start: 08-16-2023 [facility] Start: 05-31-2023 Hemolytic complement CH50 [facility] Start: 05-18-2023 [facility] Start: 05-12-2023 FUV, Provider: Alfonso Trujillo, Status: Pen, Time: 10:00 AM FUV, Provider: Alfonso Trujillo, Status: Pen, Time: 10:00 AM [facility] 250 DO Work Phone: Start: 05-09-2023 FUV, Provider: Germaine Brown, Status: Pen, Time: 10:30 AM FUV, Provider: Germaine Brown, Status: Pen, Time: 10:30 AM [facility] 250 DO Work Phone: Start: 04-04-2023 [facility] Start: 04-04-2023 SURGNONUH, Provider: Alfonso Trujillo, Status: Pen, Time: 11:00 AM SURGNONUH, Provider: Alfonso Trujillo, Status: Pen, Time: 11:00 AM [facility] 250 DO Work Phone: Start: 01-31-2023 Hemolytic complement CH50 level [facility] Start: 10-26-2022 Hemolytic complement CH50 [facility] Start: 2002 Screening for malign ant neoplasm of colon Colonoscopy [facility] Start: 1975 Adult BMI Follow Up Plan Adult BMI Follow Up Plan [facility] Start: 1957 Screening for malign ant neoplasm of colon [facility] Bilirubin measurement [facility] Body weight [facility] Calcium [Mass/time] in 24 hour Urine [facility] Calcium [Mass/volume ] in 24 hour Urine [facility] Calcium carbonate/To eligio in [facility] Calcium hydrogen phosphate dihydrate/Total in [facility] Calcium oxalate monohydrate/Total in [facility] Calcium phosphate level [facility] Calculus analysis wi th calculus photography [Interpretation] in [facility] Calculus analysis, qualitative [facility] Calculus analysis, quantitative [facility] Calculus analysis, quantitative, infrared spectroscopy [facility] Cellular material [Mass/mass] of Stone by Estimated [facility] Cholesterol [Mass/vo lume] in Serum or Plasma [facility] Complement C3 [Mass/volume] in Serum or Plasma [facility] Work Phone: Complement C3 [Mass/volume] in Serum or Plasma [facility] Complement C3 [Mass/volume] in Serum or Plasma [facility] Complement C3 [Mass/volume] in Serum or Plasma [facility] Complement C3 [Mass/volume] in Serum or Plasma [facility] Complement C3 [Mass/volume] in Serum or Plasma [facility] Complement C4 [Mass/volume] in Serum or Plasma [facility] C[facility] Work Phone: Complement C4 [Mass/volume] in Serum or Plasma [facility] Complement C4 [Mass/volume] in Serum or Plasma [facility] Complement C4 [Mass/volume] in Serum or Plasma [facility] Complement C4 [Mass/volume] in Serum or Plasma [facility] Complement C4 [Mass/volume] in Serum or Plasma [facility] Cystine measurement [facility] Determination of willow culus chemical composition [facility] Evaluation procedure [facility] Hemolytic complement CH50 level [facility] C[facility] Work Phone: Hydroxyapatite [Ener gy Difference] in 24 hour Urine [facility] Laboratory data interpretation [facility] Magnesium [Mass/time ] in 24 hour Urine [facility] Magnesium [Mass/volu me] in Urine [facility] MR Cervical spine WO contrast [facility] Newberyite/Total in [facility] Oxalate [Mass/time] in 24 hour Urine [facility] Patient Education [facility] Work Phone: Patient referral [facility] Work Phone: Phosphate [Mass/time ] in 24 hour Urine [facility] Phosphate [Mass/volu me] in Urine [facility] Specimen source subj ect [Type] [facility] Triamterene measurement [facility] Triple phosphate/Tot al in Stone [facility] Urate [Mass/time] in 24 hour Urine [facility] Urate [Mass/volume] in Urine [facility] Immunizations Immunization Date Immunization Notes Care Provider Fa cility 03-06-2024 COVID-19 (MODERNA) 12Y and older DO Sascha MarieTivra Work Phone: [facility] 08-23-2023 Covid-19, Mrna, Lnp- s, Pf,erasmo-sucrose,30 Mcg/0.3ml Fall23 Sascha Sutton DO Work Phone: [employer] 08-23-2023 influenza virus vacc ine, unspecified formulation Zac MUNIZ [facility] 08-23-2023 Influenza, High-dose , Quadrivalent Sascha Sutton DO Work Phone: [employer] 08-23-2023 RSV, bivalent, prote in subunit RSVpreF, diluent reconstituted, 0.5 mL, PF Sascha Sutton DO Work Phone: [employer] 05-20-2023 tetanus toxoid, redu coni diphtheria toxoid, and acellular pertussis vaccine, adsorbed Zac MUNIZ [facility] 12-05-2022 influenza virus vacc ine, unspecified formulation Zac MUNIZ [facility] 12-05-2022 influenza, seasonal, injectable Sascha Marielong Work Phone: [facility] [employer] 250 DO Work Phone: 10-08-2022 Pfizer COVID-19 Vac Bivalent 30 MCG/0.3ML Intramuscular Suspension Sascha Marielong Work Phone: [facility] 10-08-2022 SARS-COV-2 (COVID-19 ) Vaccine, Unspecified Sascha Marielong DO Work Phone: [facility] 09-07-2022 Fluzone High-Dose Quadrivalent 0.7 ML Intramuscular Suspension Prefilled Syringe Sascha Candelaria Millicangeneng Work Phone: [facility] Work Phone: 09-07-2022 influenza virus vacc ine, unspecified formulation Zac MUNIZ [facility] 04-16-2022 Prevnar 20 0.5 ML Intramuscular Suspension Prefilled Syringe Sascha Kwanng Work Phone: [facility] 09-23-2021 Lizeth COVID-19 Vac cine 0.5 ML Intramuscular Suspension Sascha Marielong Work Phone: [facility] 07-28-2021 influenza virus vacc ine, unspecified formulation Zac MUNIZ [facility] 07-28-2021 influenza, injectabl e, quadrivalent, preservative free Sascha Candelaria Millicanlong [facility] Work Phone: 01-26-2021 Lizeth COVID-19 Vac cine 0.5 ML Intramuscular Suspension Sascha G Furlong Work Phone: [facility] 08-22-2020 influenza virus vacc ine, unspecified formulation Moonfrye [facility] 08-22-2020 Influenza, injectabl e, Madin Cullom Canine Kidney, preservative free, quadrivalent Sascha G Furlong Work Phone: [facility] DO Work Phone: 08-26-2019 zoster vaccine recombinant Sascha G Furlong Work Phone: [facility] 08-20-2019 influenza virus vacc ine, unspecified formulation Moonfrye [facility] 08-20-2019 Influenza, injectabl e, Madin Hilda Canine Kidney, quadrivalent with preservative Sascha G Furlong Work Phone: [facility] [employer] Machine DO Work Phone: 06-27-2019 zoster vaccine recombinant Sascha G Furlong Work Phone: [facility] 09-05-2018 influenza virus vacc ine, unspecified formulation Moonfrye [facility] 09-05-2018 Influenza, injectabl e, Madin Cullom Canine Kidney, preservative free, quadrivalent Sascha G Furlong Work Phone: [facility] Work Phone: 07-28-2017 Influenza, injectabl e, Madin Cullom Canine Kidney, preservative free, quadrivalent Sascha Furlong DO Work Phone: [facility] 09-16-2016 pneumococcal conjuga te vaccine, 13 valent Sascha G Furlong Work Phone: [facility] 09-09-2016 influenza virus vacc ine, unspecified formulation Zac MUNIZ [facility] 09-09-2016 influenza, injectabl e, quadrivalent, contains preservative Sascha Kwanng Work Phone: [facility] 250 DO Work Phone: 12-05-2012 pneumococcal polysaccharide vaccine, 23 valent Sascha Kwanng Work Phone: [facility] 12-05-2012 tetanus toxoid, redu coni diphtheria toxoid, and acellular pertussis vaccine, adsorbed Sascha Kwanng Work Phone: [facility] 11-20-1990 hepatitis B vaccine, pediatric or pediatric/adolescent dosage Sascha Sutton Work Phone: [facility] 10-04-1990 hepatitis B vaccine, pediatric or pediatric/adolescent dosage Sascha Kwanng Work Phone: [facility] Payers Date Payer Category Payer Unknown 2023 Self-pay [id number] 2022 Medicare [id number] 2022 Private Health Insurance [facility] AAR SUPPLEMENT [id number] 2022-Present [phone] [address] [place] [address] [id number] 2022 Medicare [id number] 1959 Medicare [id number] 1959 Unknown [id number] 1957 Unknown [id number] 1957 Unknown [id number] 1957 Unknown [id number] .356 1957 Unknown [id number] .356 1957 Unknown [id number] .356 1957 Unknown [id number] .128 1957 Unknown [id number] .128 1957 Unknown [id number] .128 1957 Unknown [id number] [id number] .128 1957 Unknown [id number] [id number] .128 1957 Unknown [id number] .128 1957 Unknown [id number] .[id number] 1957 Unknown [id number] 2.16.840.1.823322.3.579.2 .727 1955 Unknown [id number] 2.16.840.1.936546.3.579.2 .1955 Unknown [id number] 2.840.1.045187.3.579.2 .1955 Unknown [id number] 2..840.1.415874.3.579.2 .1955 Unknown [id number] 2.0.1.867516.3.579.2 .1955 Unknown [id number] 2.840.1.882900.3.579.2 .1955 Unknown [id number] .0.1.041571.3.579.2 .1955 Unknown [id number] .0.1.760977.3.579.2 .1955 Unknown [id number] .0.1.614266.3.579.2 .1258 1955 Unknown [id number] .0.1.547795.3.579.2 .1258 1955 Unknown [id number] ..1.576087.3.579.2 .1258 1955 Unknown [id number] .0.1.589334.3.579.2 .1258 1955 Unknown [id number] 01.06.840.1.184275.3.579.2 .125 Unknown [id number] Unknown [facility] [id number] Unknown [facility] [id number] Unknown [id number] 2.840.1.358194.3.579.2 .531 Unknown [id number] 2.0.1.611585.3.579.2 .531 Unknown [id number] 2.16.840.1.046621.3.579.2 .531 Unknown [id number] 2.16.840.1.828221.3.579.2 .531 Unknown [id number] 2.16.840.1.169454.3.579.2 .531 Unknown [id number] 2.16.840.1.288399.3.579.2 .531 Unknown [id number] 2.16.840.1.659519.3.579.2 .531 Unknown [id number] 2.16.840.1.178618.3.579.2 .531 Unknown [id number] 2.16.840.1.100485.3.579.2 .531 Unknown [id number] 2.16.840.1.007562.3.579.2 .531 Unknown [id number] 2.16.840.1.135745.3.579.2 .531 Unknown [id number] 2.16.840.1.527210.3.579.2 .531 Unknown [id number] 2.16.840.1.365208.3.579.2 .531 Unknown [id number] 2.16.840.1.591234.3.579.2 .531 Unknown [id number] 2.16.840.1.512695.3.579.2 .531 Unknown [id number] 2.16.840.1.691799.3.579.2 .531 Unknown [id number] 2.16.840.1.538274.3.579.2 .531 Social History Date Type Detail Facility Start: 10-17-2019 End: 04-09-2024 Tobacco smoking status AZIS Ex-smoker (finding) [facility] Start: 1955 Sex Assigned At Male [facility] Start: 04-14-2023 End: 12-28-2023 No alcohol use No alcohol use [facility] Comment on above: pop occasioanl; quit in the 's; Start: 04-14-2023 End: 12-28-2023 Sex Assigned At Male [facility] Tobacco smoking status Never [facility] History of tobacco use Current smoker [facility] History of tobacco use Cigarette Smoker [facility] History of tobacco use Passive smoker [facility] Start: 09-29-2022 End: 12-26-2023 Tobacco use and exposure Smokeless tobacco non-user [facility] Start: 12-14-2023 Alcohol intake Ex-drinker (finding) [facility] Do you belong to any clubs or organizations such as uatsdin groups, unions, [employer] or athletic groups, or school groups? Yes [facility] Are you now , , , , never or living with a partner? [facility] How often to you hav e a drink containing alcohol? Never [facility] Do you feel stress - tense, restless, nervous, or anxious, or unable to sleep at night because your mind is troubled all the time - these days [OSQ] Not at all [facility] Start: 1955 Sex Assigned At Not on file [facility] Start: 12-26-2023 Tobacco smoking stat us AZIS Never smoked tobacco [facility] Start: 12-26-2023 End: 12-28-2023 Alcohol intake Lifetime non-drinker (finding) [facility] Start: 12-26-2023 Alcohol Comment none caffeine [facility] Medical Equipment Procedure Code Equipment Code Equipment Origin al Text Equipment Identifier Dates CAGE [id number] 6DE G CAPSTONE FDA Start: 07-24-2019 SCREW [...] 6X45MM POLY AESCULAP FDA Start: 07-24-2019 CAGE [id number] 6DE G [employer] FDA Start: 07-24-2019 SCREW [...] 6X45MM POLY AESCULAP FDA Start: 07-24-2019 CAGE [id number] 6DE G [employer]ONE FDA Start: 07-24-2019 SCREW [...] 6X45MM POLY AESCULAP FDA Start: 07-24-2019 CAGE [id number] 6DE G [employer] FDA Start: 07-24-2019 SCREW [...] 6X45MM POLY AESCULAP FDA Start: 07-24-2019 CAGE [id number] 6DE G [employer]ONE FDA Start: 07-24-2019 SCREW [...] SCREW S4 6X45MM POLY AESCULAP FDA Start: 09-03-2019 CAGE [id number] 6DE G [employer] FDA Start: 07-24-2019 SCREW [...] 6X45MM POLY AESCULAP FDA Start: 07-24-2019 CAGE [id number] 6DE G [employer] FDA Start: 07-24-2019 SCREW [...] 6X45MM POLY AESCULAP FDA Start: 07-24-2019 CAGE [id number] 6DE G [employer] FDA Start: 07-24-2019 SCREW [...] 6X45MM POLY AESCULAP FDA Start: 07-24-2019 CAGE [id number] 6DE G [employer] FDA Start: 07-24-2019 SCREW [...] 6X45MM POLY AESCULAP FDA Start: 07-24-2019 CAGE [id number] 6DE G [employer] FDA Start: 07-24-2019 SCREW [...] 6X45MM POLY AESCULAP FDA Start: 07-24-2019 CAGE [id number] 6DE G [employer] FDA Start: 07-24-2019 SCREW [...] 6X45MM POLY AESCULAP FDA Start: 07-24-2019 CAGE [id number] 6DE G [employer] FDA Start: 07-24-2019 SCREW [...] 6X45MM POLY AESCULAP FDA Start: 07-24-2019 CAGE [id number] 6DE G [employer] FDA Start: 07-24-2019 SCREW [...] 6X45MM POLY AESCULAP FDA Start: 07-24-2019 CAGE [id number] 6DE G [employer] FDA Start: 07-24-2019 SCREW [...] 6X45MM POLY AESCULAP FDA Start: 07-24-2019 CAGE [id number] 6DE G [employer] FDA Start: 07-24-2019 SCREW [...] Ultra-Fine 1 mL 31 gauge x 5/16 [id number] CAGE [id number] 6DE G [employer] FDA Start: 07-24-2019 SCREW [...] 6X45MM POLY AESCULAP FDA Start: 07-24-2019 CAGE [id number] 6DE G [employer] FDA Start: 07-24-2019 SCREW [...] 6X45MM POLY AESCULAP FDA Start: 07-24-2019 CAGE [id number] 6DE G [employer] FDA Start: 07-24-2019 SCREW [...] 6X45MM POLY AESCULAP FDA Start: 07-24-2019 CAGE [id number] 6DE G [employer] FDA Start: 07-24-2019 SCREW [...] 6X45MM POLY AESCULAP FDA Start: 07-24-2019 CAGE [id number] 6DE G [employer] FDA Start: 07-24-2019 SCREW [...] 6X45MM POLY AESCULAP FDA Start: 07-24-2019 CAGE [id number] 6DE G [employer]ONE FDA Start: 07-24-2019 SCREW [...] 6X45MM POLY AESCULAP FDA Start: 07-24-2019 CAGE [id number] 6DE G [employer]ONE FDA Start: 07-24-2019 SCREW [...] 6X45MM POLY AESCULAP FDA Start: 07-24-2019 CAGE [id number] 6DE G [employer] FDA Start: 07-24-2019 SCREW [...] 6X45MM POLY AESCULAP FDA Start: 07-24-2019 CAGE [id number] 6DE G [employer] FDA Start: 07-24-2019 SCREW [...] 6X45MM POLY AESCULAP FDA Start: 07-24-2019 CAGE [id number] 6DE G [employer] FDA Start: 07-24-2019 SCREW [...] 6X45MM POLY AESCULAP FDA Start: 07-24-2019 CAGE [id number] 6DE G [employer] FDA Start: 07-24-2019 SCREW [...] 6X45MM POLY AESCULAP FDA Start: 07-24-2019 CAGE [id number] 6DE G [employer] FDA Start: 07-24-2019 SCREW [...] 6X45MM POLY AESCULAP FDA Start: 07-24-2019 CAGE [id number] 6DE G [employer] FDA Start: 07-24-2019 SCREW [...] 6X45MM POLY AESCULAP FDA Start: 07-24-2019 CAGE [id number] 6DE G [employer] FDA Start: 07-24-2019 SCREW [...] 6X45MM POLY AESCULAP FDA Start: 07-24-2019 CAGE [id number] 6DE G [employer]ONE FDA Start: 07-24-2019 SCREW [...] 6X45MM POLY AESCULAP FDA Start: 07-24-2019 CAGE [id number] 6DE G [employer] FDA Start: 07-24-2019 SCREW [...] 6X45MM POLY AESCULAP FDA Start: 07-24-2019 CAGE [id number] 6DE G [employer]ONE FDA Start: 07-24-2019 SCREW [...] 6X45MM POLY AESCULAP FDA Start: 07-24-2019 CAGE [id number] 6DE G [employer] FDA Start: 07-24-2019 SCREW [...] 6X45MM POLY AESCULAP FDA Start: 07-24-2019 CAGE [id number] 6DE G [employer] FDA Start: 07-24-2019 SCREW [...] 6X45MM POLY AESCULAP FDA Start: 07-24-2019 CAGE [id number] 6DE G [facility] FDA Start: 07-24-2019 SCREW [...] 6X45MM POLY AESCULAP FDA Start: 07-24-2019 CAGE [id number] 6DE G [facility] FDA Start: 07-24-2019 SCREW [...] 6X45MM POLY AESCULAP FDA Start: 07-24-2019 CAGE [id number] 6DE G [employer] FDA Start: 07-24-2019 SCREW [...] 6X45MM POLY AESCULAP FDA Start: 07-24-2019 CAGE [id number] 6DE G [facility] FDA Start: 07-24-2019 SCREW [...] 6X45MM POLY AESCULAP FDA Start: 07-24-2019 CAGE [id number] 6DE G [employer] FDA Start: 07-24-2019 SCREW [...] 6X45MM POLY AESCULAP FDA Start: 07-24-2019 CAGE [id number] 6DE G [facility] FDA Start: 07-24-2019 SCREW [...] 6X45MM POLY AESCULAP FDA Start: 07-24-2019 CAGE [id number] 6DE G [facility] FDA Start: 07-24-2019 SCREW [...] 6X45MM POLY AESCULAP FDA Start: 07-24-2019 CAGE [id number] 6DE G [employer]ONE FDA Start: 07-24-2019 SCREW [...] S4 6X45MM POLY AESCULAP FDA Start: 07-24-2019 Goals Date Patient Goal Desired Activity /State Functional Status Date Assessment Result Facility 05-15-2024 Functional Status N/A [facility] 03-20-2024 Functional Status N/A [facility] 01-18-2024 Functional Status N/A [facility] 09-19-2023 Functional Status N/A [facility] Clinical Notes 04-09-2022 to 05-15-2024 Note Date & Type Note Facility 05-15-2024 Hospital Discharge instructions Patient Education 05/15/2024 13:41:01 Benign Prostatic Hyperplasia Benign Prostatic Hyperplasia Benign prostatic hyperplasia (BPH) is an enlarged prostate gland that is caused by the normal aging process. The prostate may get bigger as a man gets older. The condition is not caused by cancer. The prostate is a walnut-sized gland that is involved in the production of semen. It is located in front of the rectum and below the bladder. The bladder stores urine. The urethra carries stored urine out of the body. An enlarged prostate can press on the urethra. This can make it harder to pass urine. The buildup of urine in the bladder can cause infection. Back pressure and infection may progress to bladder damage and kidney (renal) failure. What are the causes? This condition is part of the normal aging process. However, not all men develop problems from this condition. If the prostate enlarges away from the urethra, urine flow will not be blocked. If it enlarges toward the urethra and compresses it, there will be problems passing urine. What increases the risk? This condition is more likely to develop in men older than 50 years. What are the signs or symptoms? Symptoms of this condition include: Getting up often during the night to urinate. Needing to urinate frequently during the day. Difficulty starting urine flow. Decrease in size and strength of your urine stream. Leaking (dribbling) after urinating. Inability to pass urine. This needs immediate treatment. Inability to completely empty your bladder. Pain when you pass urine. This is more common if there is also an infection. Urinary tract infection (UTI). How is this diagnosed? This condition is diagnosed based on your medical history, a physical exam, and your symptoms. Tests will also be done, such as: A post-void bladder scan. This measures any amount of urine that may remain in your bladder after you finish urinating. A digital rectal exam. In a rectal exam, your health care provider checks your prostate by putting a lubricated, gloved finger into your rectum to feel the back of your prostate gland. This exam detects the size of your gland and any abnormal lumps or growths. An exam of your urine (urinalysis). A prostate specific antigen (PSA) screening. This is a blood test used to screen for prostate cancer. An ultrasound. This test uses sound waves to electronically produce a picture of your prostate gland. Your health care provider may refer you to a specialist in kidney and prostate diseases (urologist). How is this treated? Once symptoms begin, your health care provider will monitor your condition (active surveillance or watchful waiting). Treatment for this condition will depend on the severity of your condition. Treatment may include: Observation and yearly exams. This may be the only treatment needed if your condition and symptoms are mild. Medicines to relieve your symptoms, including: ?Medicines to shrink the prostate. ?Medicines to relax the muscle of the prostate. Surgery in severe cases. Surgery may include: ?Prostatectomy. In this procedure, the prostate tissue is removed completely through an open incision or with a laparoscope or robotics. ?Transurethral resection of the prostate (TURP). In this procedure, a tool is inserted through the opening at the tip of the penis (urethra). It is used to cut away tissue of the inner core of the prostate. The pieces are removed through the same opening of the penis. This removes the blockage. ?Transurethral incision (TUIP). In this procedure, small cuts are made in the prostate. This lessens the prostate's pressure on the urethra. ?Transurethral microwave thermotherapy (TUMT). This procedure uses microwaves to create heat. The heat destroys and removes a small amount of prostate tissue. ?Transurethral needle ablation (TUNA). This procedure uses radio frequencies to destroy and remove a small amount of prostate tissue. ?Interstitial laser coagulation (ILC). This procedure uses a laser to destroy and remove a small amount of prostate tissue. ?Transurethral electrovaporization (TUVP). This procedure uses electrodes to destroy and remove a small amount of prostate tissue. ?Prostatic urethral lift. This procedure inserts an implant to push the lobes of the prostate away from the urethra. Follow these instructions at home: Take yfli-vlb-venroyy and prescription medicines only as told by your health care provider. Monitor your symptoms for any changes. Contact your health care provider with any changes. Avoid drinking large amounts of liquid before going to bed or out in public. Avoid or reduce how much caffeine or alcohol you drink. Give yourself time when you urinate. Keep all follow-up visits. This is important. Contact a health care provider if: You have unexplained back pain. Your symptoms do not get better with treatment. You develop side effects from the medicine you are taking. Your urine becomes very dark or has a bad smell. Your lower abdomen becomes distended and you have trouble passing urine. Get help right away if: You have a fever or chills. You suddenly cannot urinate. You feel light-headed or very dizzy, or you faint. There are large amounts of blood or clots in your urine. Your urinary problems become hard to manage. You develop moderate to severe low back or flank pain. The flank is the side of your body between the ribs and the hip. These symptoms may be an emergency. Get help right away. Call 911. Do not wait to see if the symptoms will go away. Do not drive yourself to the hospital. Summary Benign prostatic hyperplasia (BPH) is an enlarged prostate that is caused by the normal aging process. It is not caused by cancer. An enlarged prostate can press on the urethra. This can make it hard to pass urine. This condition is more likely to develop in men older than 50 years. Get help right away if you suddenly cannot urinate. This information is not intended to replace advice given to you by your health care provider. Make sure you discuss any questions you have with your health care provider. Document Revised: 05/26/2022 Document Reviewed: 05/26/2022 [employer] Patient Education 2022 [employer]. Follow Up Care 03/20/2024 12:59:39 With:LEAH ROA PA-C, URL Address: [address] [place] [address] When: Unknown [facility] 03-20-2024 Hospital Discharge instructions Patient Education 03/20/2024 13:11:31 Urinary Incontinence Urinary Incontinence Urinary incontinence refers to a condition in which a person is unable to control where and when to pass urine. A person with this condition will urinate involuntarily. This means that the person urinates when he or she does not mean to. What are the causes? This condition may be caused by: Medicines. Infections. Constipation. Overactive bladder muscles. Weak bladder muscles. Weak pelvic floor muscles. These muscles provide support for the bladder, intestine, and, in women, the uterus. Enlarged prostate in men. The prostate is a gland near the bladder. When it gets too big, it can pinch the urethra. With the urethra blocked, the bladder can weaken and lose the ability to empty properly. Surgery. Emotional factors, such as anxiety, stress, or post-traumatic stress disorder (PTSD). Spinal cord injury, nerve injury, or other neurological conditions. Pelvic organ prolapse. This happens in women when organs move out of place and into the vagina. This movement can prevent the bladder and urethra from working properly. What increases the risk? The following factors may make you more likely to develop this condition: Age. The older you are, the higher the risk. Obesity. Being physically inactive. and childbirth. Menopause. Diseases that affect the nerves or spinal cord. Long-term, or chronic, coughing. This can increase pressure on the bladder and pelvic floor muscles. What are the signs or symptoms? Symptoms may vary depending on the type of urinary incontinence you have. They include: A sudden urge to urinate, and passing urine involuntarily before you can get to a bathroom (urge incontinence). Suddenly passing urine when doing activities that force urine to pass, such as coughing, laughing, exercising, or sneezing (stress incontinence). Needing to urinate often but urinating only a small amount, or constantly dribbling urine (overflow incontinence). Urinating because you cannot get to the bathroom in time due to a physical disability, such as arthritis or injury, or due to a communication or thinking problem, such as Alzheimer's disease (functional incontinence). How is this diagnosed? This condition may be diagnosed based on: Your medical history. A physical exam. Tests, such as: ?Urine tests. ?X-rays of your kidney and bladder. ?Ultrasound. ?CT scan. ?Cystoscopy. In this procedure, a health care provider inserts a tube with a light and camera (cystoscope) through the urethra and into the bladder to check for problems. ?Urodynamic testing. These tests assess how well the bladder, urethra, and sphincter can store and release urine. There are different types of urodynamic tests, and they vary depending on what the test is measuring. To help diagnose your condition, your health care provider may recommend that you keep a log of when you urinate and how much you urinate. How is this treated? Treatment for this condition depends on the type of incontinence that you have and its cause. Treatment may include: Lifestyle changes, such as: ?Quitting smoking. ?Maintaining a healthy weight. ?Staying active. Try to get 150 minutes of moderate-intensity exercise every week. Ask your health care provider which activities are safe for you. ?Eating a healthy diet. ?Avoid high-fat foods, like fried foods. ?Avoid refined carbohydrates like white bread and white rice. ?Limit how much alcohol and caffeine you drink. ?Increase your fiber intake. Healthy sources of fiber include beans, whole grains, and fresh fruits and vegetables. Behavioral changes, such as: ?Pelvic floor muscle exercises. ?Bladder training, such as lengthening the amount of time between bathroom breaks, or using the bathroom at regular intervals. ?Using techniques to suppress bladder urges. This can include distraction techniques or controlled breathing exercises. Medicines, such as: ?Medicines to relax the bladder muscles and prevent bladder spasms. ?Medicines to help slow or prevent the growth of a man's prostate. ?Botox injections. These can help relax the bladder muscles. Treatments, such as: ?Using pulses of electricity to help change bladder reflexes (electrical nerve stimulation). ?For women, using a medical office manager to prevent urine leaks. This is a small, tampon-like, disposable device that is inserted into the urethra. ?Injecting collagen or carbon beads (bulking agents) into the urinary sphincter. These can help thicken tissue and close the bladder opening. ?Surgery. Follow these instructions at home: Lifestyle Limit alcohol and caffeine. These can fill your bladder quickly and irritate it. Keep yourself clean to help prevent odors and skin damage. Ask your health care provider about special skin creams and cleansers that can protect the skin from urine. Consider wearing pads or adult diapers. Make sure to change them regularly, and always change them right after experiencing incontinence. General instructions Take jgdb-cxr-wyrshwd and prescription medicines only as told by your health care provider. Use the bathroom about every 3 4 hours, even if you do not feel the need to urinate. Try to empty your bladder completely every time. After urinating, wait a minute. Then try to urinate again. Make sure you are in a relaxed position while urinating. If your incontinence is caused by nerve problems, keep a log of the medicines you take and the times you go to the bathroom. Keep all follow-up visits. This is important. Where to find more information [employer] [place] [employer] and [employer]estive and Kidney Diseases: www.niddk.nih.gov [employer] [employer]: www.urologyhealth.org Contact a health care provider if: You have pain that gets worse. Your incontinence gets worse. Get help right away if: You have a fever or chills. You are unable to urinate. You have redness in your groin area or down your legs. Summary Urinary incontinence refers to a condition in which a person is unable to control where and when to pass urine. This condition may be caused by medicines, infection, weak bladder muscles, weak pelvic floor muscles, enlargement of the prostate (in men), or surgery. Factors such as older age, obesity, and childbirth, menopause, neurological diseases, and chronic coughing may increase your risk for developing this condition. Types of urinary incontinence include urge incontinence, stress incontinence, overflow incontinence, and functional incontinence. This condition is usually treated first with lifestyle and behavioral changes, such as quitting smoking, eating a healthier diet, and doing regular pelvic floor exercises. Other treatment options include medicines, bulking agents, medical devices, electrical nerve stimulation, or surgery. This information is not intended to replace advice given to you by your health care provider. Make sure you discuss any questions you have with your health care provider. Document Revised: 06/12/2021 Document Reviewed: 06/12/2021 [employer] Patient Education 2022 [employer] 03/20/2024 13:11:28 Cancer Screening for Men Cancer Screening for Men A cancer screening is a test or exam that checks for cancer. Your health care provider will recommend specific cancer screenings based on your age, medical history (including risk factors), and family history of cancer. Work with your health care provider to create a cancer screening schedule that protects your health. Who should have screening? All men should be considered for screening of certain cancers, including colorectal cancer, prostate cancer, lung cancer, and skin cancer. Your health care provider may recommend screenings for other types of cancer if: You had cancer before. You have a family member with cancer. You have abnormal genes that could increase the risk of cancer. You have risk factors for certain cancers, such as current or past use of tobacco products, or being overweight. When you should be screened for cancer depends on: Your age. Your medical history and your family's medical history. Certain lifestyle factors, such as smoking or other use of tobacco products. Environmental exposure, such as to asbestos. How is screening done? Colorectal cancer All adults should have screenings starting at age 45 and continuing until age 75. Your health care provider may recommend screening before age 45. You will have tests every 1 10 years, depending on your results and the type of screening test. People at increased risk should start screening at an earlier age. Talk with your health care provider about which screening test is right for you and how often you should be screened. Colorectal cancer screening looks for cancer or for growths called polyps that often form before cancer starts. Tests to look for cancer or polyps include: Colonoscopy or flexible sigmoidoscopy. For these procedures, a flexible tube with a small camera is inserted into the rectum. CT colonography. This test uses X-rays and a contrast dye to check the colon for polyps. If a polyp is found, you may need to have a colonoscopy so the polyp can be located and removed. Tests to look for cancer in the stool (feces) include: Guaiac-based fecal occult blood test (FOBT). This test can find blood in stool. It can be done at home with a kit. Fecal immunochemical test (FIT). This test can find blood in stool. For this test, you will need to collect stool samples at home. Stool DNA test. This test looks for blood in stool and any changes in DNA that can lead to colon cancer. For this test, you will need to collect a stool sample at home and send it to a lab. Prostate cancer Prostate cancer screening for men with average risk may start at age 50. Men with risk factors may need to be screened earlier, at ages 40 45. Talk with your health care provider about whether screening is right for you and, if so, how often you should be screened. Prostate cancer screening is done with blood tests and a digital rectal exam. During this exam, a health care provider uses a gloved finger to check prostate size. You may need to be screened for prostate cancer if: You have risk factors for prostate cancer, such as being or having a close family member with prostate cancer. You have had gene changes or a genetic condition that was passed on to you from a parent (inherited). These gene changes or genetic conditions include BRCA1 or BRCA2 gene mutations or Bear syndrome. You have symptoms of prostate cancer, such as problems urinating or problems getting or keeping an erection (erectile dysfunction). When you have been screened for prostate cancer, future screening may be recommended based on the results of your blood tests. Lung cancer Lung cancer screening is done with a CT scan that looks for abnormal changes in the lungs. Discuss lung cancer screening with your health care provider if you are 50 80 years old and if any of the following apply to you: You currently smoke. You used to smoke heavily. You have a smoking history of 1 pack of cigarettes a day for 20 years or 2 packs a day for 10 years. You have quit smoking within the past 15 years. You may need to be screened every year if you smoke heavily or if you used to smoke. Skin cancer Skin cancer screening is done by checking the skin for unusual moles or spots and any changes in existing moles. Your health care provider should check your skin for signs of skin cancer at every physical exam. You should check your skin every month and tell your health care provider right away if anything looks unusual. Men with a ldxxyg-aeda-qqajre risk for skin cancer may want to see a lambskin trimmer (seat pack inspector) for an annual body check. What are the benefits of screening? Cancer screening is done to look for cancer in the very early stages, before it spreads and becomes harder to treat and before you would start to notice symptoms. Finding cancer early improves the chances of successful treatment. It may save your life. Where to find more information [place] [employer]: www.cancer.org Centers for Disease Control and Prevention: www.cdc.gov National Cancer [place]: www.cancer.gov Contact a health care provider if: You have concerns about any signs or symptoms of cancer. These may include: Skin problems. You may have: ?Moles of an unusual shape or color. ?Changes in existing moles. ?A sore on your skin that does not heal. Tiredness (fatigue) that does not go away. Losing weight without trying. Blood in your urine or stool. Problems with urination. You may have: ?Changes in urination habits. ?Painful urination. Painful ejaculation. Problems with coughing or breathing. These may include: ?Coughing or trouble breathing that does not go away. ?Coughing up blood. Frequent pain or cramping in your abdomen. Summary Your health care provider will recommend specific cancer screenings based on your age, medical history, and family history of cancer. Work with your health care provider to create a cancer screening schedule that protects your health. Finding cancer early improves the chances of successful treatment. It may save your life. Contact a health care provider if you have concerns about any signs or symptoms of cancer. This information is not intended to replace advice given to you by your health care provider. Make sure you discuss any questions you have with your health care provider. Document Revised: 04/05/2022 Document Reviewed: 10/03/2020 [employer] Patient Education 2022 [employer]. 03/20/2024 13:11:20 Urinary Incontinence Urinary Incontinence Urinary incontinence refers to a condition in which a person is unable to control where and when to pass urine. A person with this condition will urinate involuntarily. This means that the person urinates when he or she does not mean to. What are the causes? This condition may be caused by: Medicines. Infections. Constipation. Overactive bladder muscles. Weak bladder muscles. Weak pelvic floor muscles. These muscles provide support for the bladder, intestine, and, in women, the uterus. Enlarged prostate in men. The prostate is a gland near the bladder. When it gets too big, it can pinch the urethra. With the urethra blocked, the bladder can weaken and lose the ability to empty properly. Surgery. Emotional factors, such as anxiety, stress, or post-traumatic stress disorder (PTSD). Spinal cord injury, nerve injury, or other neurological conditions. Pelvic organ prolapse. This happens in women when organs move out of place and into the vagina. This movement can prevent the bladder and urethra from working properly. What increases the risk? The following factors may make you more likely to develop this condition: Age. The older you are, the higher the risk. Obesity. Being physically inactive. and childbirth. Menopause. Diseases that affect the nerves or spinal cord. Long-term, or chronic, coughing. This can increase pressure on the bladder and pelvic floor muscles. What are the signs or symptoms? Symptoms may vary depending on the type of urinary incontinence you have. They include: A sudden urge to urinate, and passing urine involuntarily before you can get to a bathroom (urge incontinence). Suddenly passing urine when doing activities that force urine to pass, such as coughing, laughing, exercising, or sneezing (stress incontinence). Needing to urinate often but urinating only a small amount, or constantly dribbling urine (overflow incontinence). Urinating because you cannot get to the bathroom in time due to a physical disability, such as arthritis or injury, or due to a communication or thinking problem, such as Alzheimer's disease (functional incontinence). How is this diagnosed? This condition may be diagnosed based on: Your medical history. A physical exam. Tests, such as: ?Urine tests. ?X-rays of your kidney and bladder. ?Ultrasound. ?CT scan. ?Cystoscopy. In this procedure, a health care provider inserts a tube with a light and camera (cystoscope) through the urethra and into the bladder to check for problems. ?Urodynamic testing. These tests assess how well the bladder, urethra, and sphincter can store and release urine. There are different types of urodynamic tests, and they vary depending on what the test is measuring. To help diagnose your condition, your health care provider may recommend that you keep a log of when you urinate and how much you urinate. How is this treated? Treatment for this condition depends on the type of incontinence that you have and its cause. Treatment may include: Lifestyle changes, such as: ?Quitting smoking. ?Maintaining a healthy weight. ?Staying active. Try to get 150 minutes of moderate-intensity exercise every week. Ask your health care provider which activities are safe for you. ?Eating a healthy diet. ?Avoid high-fat foods, like fried foods. ?Avoid refined carbohydrates like white bread and white rice. ?Limit how much alcohol and caffeine you drink. ?Increase your fiber intake. Healthy sources of fiber include beans, whole grains, and fresh fruits and vegetables. Behavioral changes, such as: ?Pelvic floor muscle exercises. ?Bladder training, such as lengthening the amount of time between bathroom breaks, or using the bathroom at regular intervals. ?Using techniques to suppress bladder urges. This can include distraction techniques or controlled breathing exercises. Medicines, such as: ?Medicines to relax the bladder muscles and prevent bladder spasms. ?Medicines to help slow or prevent the growth of a man's prostate. ?Botox injections. These can help relax the bladder muscles. Treatments, such as: ?Using pulses of electricity to help change bladder reflexes (electrical nerve stimulation). ?For women, using a medical office manager to prevent urine leaks. This is a small, tampon-like, disposable device that is inserted into the urethra. ?Injecting collagen or carbon beads (bulking agents) into the urinary sphincter. These can help thicken tissue and close the bladder opening. ?Surgery. Follow these instructions at home: Lifestyle Limit alcohol and caffeine. These can fill your bladder quickly and irritate it. Keep yourself clean to help prevent odors and skin damage. Ask your health care provider about special skin creams and cleansers that can protect the skin from urine. Consider wearing pads or adult diapers. Make sure to change them regularly, and always change them right after experiencing incontinence. General instructions Take nnte-dyf-sgtzcnk and prescription medicines only as told by your health care provider. Use the bathroom about every 3 4 hours, even if you do not feel the need to urinate. Try to empty your bladder completely every time. After urinating, wait a minute. Then try to urinate again. Make sure you are in a relaxed position while urinating. If your incontinence is caused by nerve problems, keep a log of the medicines you take and the times you go to the bathroom. Keep all follow-up visits. This is important. Where to find more information National [place] of Diabetes and Digestive and Kidney Diseases: www.niddk.nih.gov [place] [employer]: www.urologyhealth.org Contact a health care provider if: You have pain that gets worse. Your incontinence gets worse. Get help right away if: You have a fever or chills. You are unable to urinate. You have redness in your groin area or down your legs. Summary Urinary incontinence refers to a condition in which a person is unable to control where and when to pass urine. This condition may be caused by medicines, infection, weak bladder muscles, weak pelvic floor muscles, enlargement of the prostate (in men), or surgery. Factors such as older age, obesity, and childbirth, menopause, neurological diseases, and chronic coughing may increase your risk for developing this condition. Types of urinary incontinence include urge incontinence, stress incontinence, overflow incontinence, and functional incontinence. This condition is usually treated first with lifestyle and behavioral changes, such as quitting smoking, eating a healthier diet, and doing regular pelvic floor exercises. Other treatment options include medicines, bulking agents, medical devices, electrical nerve stimulation, or surgery. This information is not intended to replace advice given to you by your health care provider. Make sure you discuss any questions you have with your health care provider. Document Revised: 06/12/2021 Document Reviewed: 06/12/2021 [employer] Patient Education 2022 [employer]. 03/20/2024 13:11:17 Kidney Stones, Icov-cw-Fmkp Kidney Stones Kidney stones are rock-like masses that form inside of the kidneys. Kidneys are organs that make pee (urine). A kidney stone may move into other parts of the urinary tract, including: The tubes that connect the kidneys to the bladder (ureters). The bladder. The tube that carries urine out of the body (urethra). Kidney stones can cause very bad pain and can block the flow of pee. The stone usually leaves your body (passes) through your pee. You may need to have a doctor take out the stone. What are the causes? Kidney stones may be caused by: A condition in which certain glands make too much parathyroid hormone (primary hyperparathyroidism). A buildup of a type of crystals in the bladder made of a chemical called uric acid. The body makes uric acid when you eat certain foods. Narrowing (stricture) of one or both of the ureters. A kidney blockage that you were born with. Past surgery on the kidney or the ureters, such as gastric bypass surgery. What increases the risk? You are more likely to develop this condition if: You have had a kidney stone in the past. You have a family history of kidney stones. You do not drink enough water. You eat a diet that is high in protein, salt (sodium), or sugar. You are overweight or very overweight (obese). What are the signs or symptoms? Symptoms of a kidney stone may include: Pain in the side of the belly, right below the ribs (flank pain). Pain usually spreads (radiates) to the groin. Needing to pee often or right away (urgently). Pain when going pee (urinating). Blood in your pee (hematuria). Feeling like you may vomit (nauseous). Vomiting. Fever and chills. How is this treated? Treatment depends on the size, location, and makeup of the kidney stones. The stones will often pass out of the body through peeing. You may need to: Drink more fluid to help pass the stone. In some cases, you may be given fluids through an IV tube put into one of your veins at the hospital. Take medicine for pain. Make changes in your diet to help keep kidney stones from coming back. Sometimes, medical procedures are needed to remove a kidney stone. This may involve: A procedure to break up kidney stones using a beam of light (laser) or shock waves. Surgery to remove the kidney stones. Follow these instructions at home: Medicines Take qtov-tcf-hnwrybt and prescription medicines only as told by your doctor. Ask your doctor if the medicine prescribed to you requires you to avoid driving or using heavy machinery. Eating and drinking Drink enough fluid to keep your pee pale yellow. You may be told to drink at least 8 10 glasses of water each day. This will help you pass the stone. If told by your doctor, change your diet. This may include: ?Limiting how much salt you eat. ?Eating more fruits and vegetables. ?Limiting how much meat, poultry, fish, and eggs you eat. Follow instructions from your doctor about eating or drinking restrictions. General instructions Collect pee samples as told by your doctor. You may need to collect a pee sample: ?24 hours after a stone comes out. ?8 12 weeks after a stone comes out, and every 6 12 months after that. Strain your pee every time you pee (urinate), for as long as told. Use the strainer that your doctor recommends. Do not throw out the stone. Keep it so that it can be tested by your doctor. Keep all follow-up visits as told by your doctor. This is important. You may need follow-up tests. How is this prevented? To prevent another kidney stone: Drink enough fluid to keep your pee pale yellow. This is the best way to prevent kidney stones. Eat healthy foods. Avoid certain foods as told by your doctor. You may be told to eat less protein. Stay at a healthy weight. Where to find more information National Kidney Foundation (NKF): www.kidney.org Urology Care Foundation (UCF): www.urologyhealth.org Contact a doctor if: You have pain that gets worse or does not get better with medicine. Get help right away if: You have a fever or chills. You get very bad pain. You get new pain in your belly (abdomen). You pass out (faint). You cannot pee. Summary Kidney stones are rock-like masses that form inside of the kidneys. Kidney stones can cause very bad pain and can block the flow of pee. The stones will often pass out of the body through peeing. Drink enough fluid to keep your pee pale yellow. This information is not intended to replace advice given to you by your health care provider. Make sure you discuss any questions you have with your health care provider. Document Revised: 07/12/2022 Document Reviewed: 07/12/2022 [employer] Patient Education 2022 [employer]. Follow Up Care 03/16/2024 08:31:59 With:FRANCIS Jimenez APRN, NEYMAR Gambino, URL Address: When: Unknown Comments:8 wk w/ PVR [facility] 02-09-2024 Evaluation note Authored February 09, 2024 4:34pm 1. 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 Khalil for a surgical consult to discuss the ulnar nerve situation and potential ulnar nerve surgery. - Advise patient to rest the hand and avoid carving activities that cause pain until the consultation with Dr. Khalil. 2. Lumbar Degenerative Disc Disease and Spondylolisthesis of L4 on L5 - Refer patient to Dr. Khalil for a surgical consult to discuss potential surgical intervention, including fusion at the level above the previous surgery (L3-4). - Provide patient with a TENS machine for pain relief, strengthing and muscle spasms. - Temporarily discontinue physical therapy until the patient sees Dr. Khalil; discuss the possibility of resuming therapy or other treatments after the consultation. 3. Kidney Stones - Patient has upcoming lithotripsy for kidney stones on February 15; ensure patient follows through with these procedures. - Advise patient to stay hydrated and follow any additional recommendations from their urologist. 7. Schedule Follow-Up Appointment - Schedule a follow-up for surgical consult with Dr. Khalil. [facility] Work Phone: [phone] 629-986102-28-2024 Hospital Discharge instructions Patient Education 01/18/2024 09:34:25 Lithotripsy, Care [...] Follow these instructions at home: Medicines Take vfqv-qqm-fkovrbw and prescription medicines only as told by your health care provider. If you were prescribed an antibiotic medicine, take it as told by your health care provider. Do notstop taking the antibiotic even if you start [...] some pain, discomfort, or nausea when pieces (fragments)of the kidney stone move through the tube [...] provider. Document Revised: 10/04/2022 Document Reviewed: 07/12/2022 [employer] Patient Education 2022 [employer]. 01/18/2024 09:34:24 Lithotripsy Lithotripsy Lithotripsy is a treatment that can help break up kidney stones that are too large to pass on theirown. This is a nonsurgical procedure that crushes a kidney stone with shock waves. These shock waves pass through your body and focus on the kidney stone. They cause the kidney stone to break up intosmaller pieces while it is still in the urinary tract. The smaller pieces of stone can pass more easily out of your body in the urine. Tell a health care provider about: Any allergies you have. All medicines you are taking, including vitamins, herbs, eye drops, creams, and kfif-faz-xtufneb medicines. Any problems you or family members [...] provider tells you to take them. Taking kkkf-deu-nfelxyp medicines, vitamins, herbs, and supplements. Tests You [...] taken to help prevent infection. These may includewashing skin with a germ-killing soap. What happens [...] blood oxygen level will be monitored until youleave the hospital or clinic. You may be [...] that are too large to pass on theirown. Lithotripsy is a nonsurgical procedure that crushes a kidney stone with shock waves. Generally, this is a safe procedure. However, problems may occur, including damage to the kidney orother organs, infection, or obstruction of the tube [...] provider. Document Revised: 10/04/2022 Document Reviewed: 07/12/2022 [employer] Patient Education 2022 [employer]. Follow Up Care 01/03/2024 14:10:04 With:FLAVIO ONEAL, Zac De Oliveira, URL Address: [facility] [address] , [place] [address]- When: Unknown [facility] 02-09-2024 Evaluation note* Encounter Date Diagnosis Assessment Notes Treatment Notes Treatment Clinical Notes Dec, Spinal stenosis of lumbar region without neurogenic claudication (ICD-10 - M48.061) Reviewed previous X-rays: Hardware placement appears good, with a well-positioned cage. Evidence of residual spondylolisthesis. MRI: Ordered to further evaluate the patient's [...] issue: - Obtain release of information from [facility] for physical therapy notes - Schedule bilateral upper extremity EMG - Follow up in six weeks or after EMG completion Dec, Other Note: Patient h as a history of lupus, previous surgeries, and steroid injections in the knees. [employer] Other 02-07-2024 History of Present illness Narrative* Zaira Cain DPM - 12/28/2023 2:00 PM EST Patient [...] X-rays 3 views taken left foot at [facility] reveal fracture of the head of the [...] than these devices offer. David discussed using protech power step insoles. One pair was dispensed today and the patient will use these in his boots. Patient will use these devices for the next 3 weeks and if symptoms resolve he may cancel that appointment. documented in this encounterSaint Alexius [id number] History of Present illness Narrative* Sascha Sutton, [...] Objective Physical Exam Exam conducted with a city designer present (Junior Collins MS III). Constitutional: Appearance: He is obese. [...] or 3 views; [facility] [place] [place]; Future Check x-ray of lumbar spine. [...] pain. Monitor portion sizes. 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[facility]) Follow up with account executive metalworking as directed Antiphospholipid syndrome ([facility]) Follow-up with specialist as directed. Cubital tunnel syndrome on right Can try an elbow pad to see if that helps. Consider ortho consult. Paresthesias Intermittent paresthesias on the left side of his neck. Possibly coming from cervical disc disease.Previous cervical CT scan reviewed and did show moderate degenerative disc disease with encroachment of the neural foramina. [facility] Discharge instructions Patient Education 09/19/2023 10:21:28 [...] include: ?8 oz (237 mL) of milk, chpvryf-qrdsfegmmwrf-dmqpy milk, and calcium- fortifiedfruit juice. Calcium-fortified means [...] ?Spinach (cooked), rhubarb, beets, sweet potatoes, and [place]i chard. ?Peanuts. ?Potato chips, irish fries, and baked potatoes with skin on. ?Nuts and nut products. ?Chocolate. If you regularly take a diuretic medicine, make sure to eat at least 1 or 2 servings of fruits or vegetables that are high in potassium each day. These include: ?Avocado. ?Banana. ?Delta, prune, carrot, or tomato juice. ?Baked potato. [...] magnesium, fish oil, or vitamin B6. Take tsux-cmx-cnywrse and prescription medicines only as told by [...] Casseroles. Pizza. Lasagna. Frozen meals. Potato chips. Armenian fries. The items listed above may not [...] provider. Document Revised: 07/19/2022 Document Reviewed: 07/19/2022 [employer] Patient Education 2022 [employer]. Follow Up Care 08/08/2023 12:11:26 With:Zac MUNIZ MD, URL Address: [facility] [address] [place] [address]- [phone] When: Unknown [facility] 07-05-2023 Hospital Discharge instructions Follow Up Care 05/25/2023 15:06:06 With:Zac MUNIZ MD, URL Address: [facility] [address] [place] [address]- [phone] When: Unknown [facility] 05-15-2023 Procedure [facility]05-[facility]2023 Hospital Discharge instructions Additional Instructions DISCHARGE INSTRUCTIONS FOR CARDIAC DOG BEAUTICIAN PHONE NUMBER OF YOUR PHYSICIAN: [phone] PROCEDURE: Heart Cath The following instructions have [...] cold, numb, blue or white, call the rn community health immediately. 4. ACTIVITY: You are advised to [...] bottle, follow the instructions on the bottle. [facility] is not responsible for incorrect prescription information provided by the patient during their visit. Do not stop your medications without consulting your health care provider. Please take the list with you to your next doctor's appointment.[facility] Work Phone: [phone]) 730-787404-30-2023 Chief complaint Narrative - Reported* VALENTIN TORRE is being seen for a consultation for chest pain. * 67-year-old gentleman seen in cardiology consultation at the request of Dr. Sutton following an episode of severe chest discomfort with left and right neck radiation that occurred at [facility] this past Tuesday with subsequent stress imaging performed after he was admitted at [place] that was reportedly unremarkable. Patient has since [...] with a heart catheterization sometime next week [facility] [employer] DO Work Phone: [phone] 367-734205-20-2022 NotePROCEDURE: XR SHOULDER RT 2V or > HISTORY: Unspecified fall COMPARISON: None. FINDINGS: BONES:Narrowing of the acromioclavicular joint without significant undersurface osteophytes. Narrowing of the glenohumeral joint without fracture or dislocation. SOFT TISSUES:No visible soft tissue swelling. EFFUSION:None visible. OTHER: Negative. IMPRESSION: 1. No acute bone abnormality. 2. Mild-moderate degenerative changes. Electronically authenticated by: PRIMO GALE Date: 2022-04-09 17:07[facility]05-20-2022 NotePROCEDURE: XR ELBOW RT MIN 3 VIEWS HISTORY: Unspecified fall COMPARISON: None. FINDINGS: BONES:Mild-moderate degenerative changes. No fracture, dislocation, bone lesion. SOFT TISSUES:No visible soft tissue swelling. EFFUSION:None visible. OTHER: Negative. IMPRESSION: 1. No acute bone abnormality of the right elbow. Electronically authenticated by: PRIMO GALE Date: 2022-04-09 16:53[facility] Future Appointments Appointment Date:08/08/2023 11:45:00 AM Scheduled Provider:Zac MUNIZ MD Location:[facility] Appointment Type:URO Office Visit [facility] evaluation + Plan note Future Appointments Appointment Date:09/19/2023 09:30:00 AM Scheduled Provider:Zac MUNIZ MD Location:[facility] Appointment Type:URO Office Visit [facility] evaluation + Plan note Future Appointments Appointment Date:03/23/2024 08:15:00 AM Scheduled Provider:Zac MUNIZ MD Location:[facility] Appointment Type:URO Office Visit Diagnostic Tests Pending * Electrolyte Panel 09/19/23 [facility] evaluation + Plan note Future Appointments Appointment Date:03/23/2024 08:15:00 AM Scheduled Provider:Zac MUNIZ MD Location:[facility] Appointment Type:URO Office Visit [facility] Evaluation + Plan note Future Appointments Appointment Date:03/23/2024 08:15:00 AM Scheduled Provider:Zac MUNIZ MD Location:[facility] Appointment Type:URO Office Visit Diagnostic Tests Pending * Calculi Analysis [facility]ments Appointment Date:05/15/2024 09:30:00 AM Scheduled Provider:FRANCIS Jimenez APRN, [place] [facility] Location:[facility] Appointment Type:URO Office Visit Appointment Date:09/03/2024 09:45:00 AM Scheduled Provider:Zac MUNIZ MD Location:[facility] Appointment Type:URO Office Visit [facility] evaluation + Plan note Future Appointments Appointment Date:09/03/2024 09:45:00 AM Scheduled Provider:Zac MUNIZ MD Location:[facility] Appointment Type:URO Office Visit [facility] Evaluation noteNo assessment information available [facility] Work Phone: Evaluation note* Diagnosis Essential hypertension- Primary Unspecified essential hypertension Hyperlipidemia, unspecified hyperlipidemia type Midline low back pain without sciatica, unspecified chronicity Class 1 obesity due to excess calories with serious comorbidity and body mass index (BMI) of 33.0 to 33.9 in adult 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[facility]) Unspecified diffuse connective tissue disease Antiphospholipid syndrome ([facility]) Primary hypercoagulable state Cubital tunnel syndrome on right Paresthesias Disturbance of skin sensation [facility] Diagnosis Pronation deformity of both feet- Primary Chronic pain of both knees documented in this encounter [facility]* Diagnosis Onset Date Resolution Status 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 acute Lumbar radiculopathy acute Lumbosacral stenosis with neurogenic claudication acute Spondylolisthesis at L4-L5 level acute Stenosis, cervical spine acu te Chronic neck pain acute Thyroid mass of unclear etiology acute 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 Arthritis of facet joint of cervical spine acute Arthritis of lumbosacral spine acute Chronic pain acute 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 Arthritis of facet joint of cervical spine acute Arthritis of lumbosacral spine acute Chronic pain acute [facility] Work Phone: Evaluation note* Diagnosis Onset Date Resolution Status Chronic neck pain acute Thyroid mass of unclear etiology acute 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 Arthritis of facet joint of cervical spine acute Arthritis of lumbosacral spine acute Chronic pain acute 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 Arthritis of facet joint of cervical spine acute Arthritis of lumbosacral spine acute Chronic pain acute Arthritis of facet joint of cervical spine acute Arthritis of lumbosacral spine acute Chronic pain acute [facility] Work Phone: Evaluation note* Diagnosis Onset Date Resolution Status Chronic neck pain acute Thyroid mass of unclear etiology acute 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 Arthritis of facet joint of cervical spine acute Arthritis of lumbosacral spine acute Chronic pain acute 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 Arthritis of facet joint of cervical spine acute Arthritis of lumbosacral spine acute Chronic pain acute Arthritis of facet joint of cervical spine acute Arthritis of lumbosacral spine acute Chronic pain acute Arthritis of facet joint of cervical spine acute Arthritis of lumbosacral spine acute Chronic pain acute [facility] Work Phone: Evaluation note* Diagnosis Onset Date Resolution Status Arthritis of facet joint of cervical spine acute Arthritis of lumbosacral spine acute Chronic pain acute 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 Arthritis of facet joint of cervical spine acute Arthritis of lumbosacral spine acute Chronic pain acute Arthritis of facet joint of cervical spine acute Arthritis of lumbosacral spine acute Chronic pain acute Arthritis of facet joint of cervical spine acute Arthritis of lumbosacral spine acute Chronic pain acute [facility] Work Phone: Evaluation note* Diagnosis Onset Date Resolution Status 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 Arthritis of facet joint of cervical spine acute Arthritis of lumbosacral spine acute Chronic pain acute Arthritis of facet joint of cervical spine acute Arthritis of lumbosacral spine acute Chronic pain acute Arthritis of facet joint of cervical spine acute Arthritis of lumbosacral spine acute Chronic pain acute Arthritis of facet joint of cervical spine acute Arthritis of lumbosacral spine acute Chronic pain acute [facility] Work Phone: Evaluation note* Diagnosis Onset Date Resolution Status Arthritis of facet joint of cervical spine acute Arthritis of lumbosacral spine acute Chronic pain acute Arthritis of facet joint of cervical spine acute Arthritis of lumbosacral spine acute Chronic pain acute Arthritis of facet joint of cervical spine acute Arthritis of lumbosacral spine acute Chronic pain acute Arthritis of facet joint of cervical spine acute Arthritis of lumbosacral spine acute Chronic pain acute Tremor of right hand acute Arthritis of facet joint of cervical spine acute Arthritis of lumbosacral spine acute Chronic pain acute [facility] Work Phone: Evaluation note* Diagnosis Onset Date Resolution Status Arthritis of facet joint of cervical spine acute Arthritis of lumbosacral spine acute Chronic pain acute Arthritis of facet joint of cervical spine acute Arthritis of lumbosacral spine acute Chronic pain acute Arthritis of facet joint of cervical spine acute Arthritis of lumbosacral spine acute Chronic pain acute Tremor of right hand acute Arthritis of facet joint of cervical spine acute Arthritis of lumbosacral spine acute Chronic pain acute [facility] Work Phone: Evaluation note* Diagnosis Onset Date Resolution Status Arthritis of facet joint of cervical spine acute Arthritis of lumbosacral spine acute Chronic pain acute Arthritis of facet joint of cervical spine acute Arthritis of lumbosacral spine acute Chronic pain acute Arthritis of facet joint of cervical spine acute Arthritis of lumbosacral spine acute Chronic pain acute Tremor of right hand acute Arthritis of facet joint of cervical spine acute Arthritis of lumbosacral spine acute Chronic pain acute Arthritis of facet joint of cervical spine acute Arthritis of lumbosacral spine acute Chronic pain acute Osteoarthritis of right hip acute [facility] Work Phone: History general Narrative - Reported* Type Description Date [...] back surgery 2019 Hospitalization History See above [employer] Other History of Present illness Narrative* The [...] medication regimen. He denies medication side effects. [facility] [facility] DO Work Phone: Hospital course Narrative No data available for this section [facility] Discharge instructions No data available for this section [facility] Hospital Discharge instructions Additional Instructions Your stone [...] or concerns, do not hesitate to come back.[facility] Work Phone: Hospital Discharge instructions Additional Instructions DISCHARGE INSTRUCTIONS FOR ULNAR NERVE DECOMPRESSION DIET -No restrictions unless diabetic or cardiac patient ACTIVITY -Activity as tolerated -Use hand is much as possible. -May drive in the a.m. as tolerated; may ride in car -Remove the white dressing 24-48 hours after surgery -Keep incision clean and dry, when showering place a bag with a rubber band over the operative area -Apply small amount of antibiotic ointment 1 time daily to wound after dressing is off -Apply ice for 24 to 48 hours to the affected area OTHER -Call your physician's office for any fever, chills, nausea, vomiting, drainage, or headache. -Please call your physician's office and make an appointment to see your physician in two weeks.[facility] Work Phone: InstructionsNot on filedocumented in this encounter [facility] No data available for this section [facility] reason for referral (narrative)* Consultation (Routine) - Authorized Specialty Diagnoses / Procedures Referred By Jd t Referred To Contact Rehabilitation Diagnoses Midline low back pain without sciatica, unspecified chronicity Sascha Sutotn, DO [address] [place] [address] [place] [address] [facility] [address] [place] [address] Referral ID Status Reason Start Date Expiration Date Visits Requested Visits Authorized [id number] Authorized Specialty Services Required 12/14/2023 12/13/2024 1 1 [facility] Summary Purpose Family History Relationship Condition Age [...] Unknown Heart disease Unknown Not Specified Unknown Relationship Condition Age at Onset Recorded Date/T juliane father Myocardial infarction Unknown Hypertension Unknown Unknown Not Specified Myocardial infarction Unknown brother Bipolar disorder Unknown brother Diabetes mellitus Unknown Relationship Condition Age at Onset Recorded Date/T juliane father Myocardial infarction Unknown Hypertension Unknown mother Myocardial infarction Unknown brother Bipolar disorder Unknown brother Diabetes mellitus Unknown Advance Directives Advance Directive Response Recorded Date/ Time Advance Directives No May 12 3:30am Advance Directive Response Recorded Date/ Time Advance Directives No May 12 2:30am Advance Directive Response Recorded Date/ Time Advance Directives Yes January 29, 3:03pm Advance Directive Response Recorded Date/ Time Advance Directives Yes May 28 2:11pm Advance Directive Response Recorded Date/ Time Advance Directives Yes June 27 024 2:59pm Chief Complaint and Reason for Visit Chief [...] m54.12 n20.0 f/u emg,mri results Chief Complaint See order M54.50 M48.061 M54.12 R flank pain, hx kidney stones m54.12 n20.0 f/u emg,mri results sx consult Reason for Visit 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 Lumbar radiculopathy Lumbosacral stenosis with neurogenic claudication Spondylolisthesis at L4-L5 level Stenosis, cervical spine Chief Complaint M54.50 M48.061 M54.12 R flank pain, hx kidney stones m54.12 n20.0 f/u emg,mri results sx consult M48.02 Reason for Visit 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 Lumbar radiculopathy Lumbosacral stenosis with neurogenic claudication Spondylolisthesis at L4-L5 level Stenosis, cervical spine 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 Lumbar radiculopathy Lumbosacral stenosis with neurogenic claudication Spondylolisthesis at L4-L5 level Stenosis, cervical spine Chief Complaint M54.50 M48.061 M54.12 R flank pain, hx kidney stones m54.12 n20.0 f/u emg,mri results sx consult M48.02 m35.00 z79.899 m15.0 Reason for Visit 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 Lumbar radiculopathy Lumbosacral stenosis with neurogenic claudication Spondylolisthesis at L4-L5 level Stenosis, cervical spine 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 Lumbar radiculopathy Lumbosacral stenosis with neurogenic claudication Spondylolisthesis at L4-L5 level Stenosis, cervical spine Chief Complaint R flank pain, hx kid david stones m54.12 n20.0 f/u emg,mri results sx consult M48.02 m35.00 z79.899 m15.0 s/x consult with MRI Reason for Visit 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 Lumbar radiculopathy Lumbosacral stenosis with neurogenic claudication Spondylolisthesis at L4-L5 level Stenosis, cervical spine 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 Lumbar radiculopathy Lumbosacral stenosis with neurogenic claudication Spondylolisthesis at L4-L5 level Stenosis, cervical spine Chronic neck pain Thyroid mass of unclear etiology Ulnar neuropathy at elbow of right upper extremity Chief Complaint m54.12 n20.0 f/u emg,mri results sx consult M48.02 m35.00 z79.899 m15.0 s/x consult with MRI Ulnar Neuropathy of Upper Right Elbow Reason for Visit 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 Lumbar radiculopathy Lumbosacral stenosis with neurogenic claudication Spondylolisthesis at L4-L5 level Stenosis, cervical spine 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 Lumbar radiculopathy Lumbosacral stenosis with neurogenic claudication Spondylolisthesis at L4-L5 level Stenosis, cervical spine Chronic neck pain Thyroid mass of unclear etiology Ulnar neuropathy at elbow of right upper extremity Chief Complaint f/u emg,mri results sx consult M48.02 m35.00 z79.899 m15.0 s/x consult with MRI 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 Reason for Visit 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 Lumbar radiculopathy Lumbosacral stenosis with neurogenic claudication Spondylolisthesis at L4-L5 level Stenosis, cervical spine 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 Lumbar radiculopathy Lumbosacral stenosis with neurogenic claudication Spondylolisthesis at L4-L5 level Stenosis, cervical spine Chronic neck pain Thyroid mass of unclear etiology Ulnar neuropathy at elbow of right upper extremity Arthritis of facet joint of cervical spine Arthritis of lumbosacral spine Chronic pain Ulnar neuropathy at elbow of right upper extremity Chief Complaint f/u emg,mri results sx consult M48.02 m35.00 z79.899 m15.0 s/x consult with MRI 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 Lumbar radiculopathy Lumbosacral stenosis with neurogenic claudication Spondylolisthesis at L4-L5 level Stenosis, cervical spine Chronic neck pain Thyroid mass of unclear etiology Ulnar neuropathy at elbow of right upper extremity Arthritis of facet joint of cervical spine Arthritis of lumbosacral spine Chronic pain Ulnar neuropathy at elbow of right upper extremity Arthritis of facet joint of cervical spine Arthritis of lumbosacral spine Chronic pain Chief Complaint sx consult M48.02 m35.00 z79.899 m15.0 s/x consult with MRI 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 Lumbar radiculopathy Lumbosacral stenosis with neurogenic claudication Spondylolisthesis at L4-L5 level Stenosis, cervical spine Chronic neck pain Thyroid mass of unclear etiology Ulnar neuropathy at elbow of right upper extremity Arthritis of facet joint of cervical spine Arthritis of lumbosacral spine Chronic pain Ulnar neuropathy at elbow of right upper extremity Arthritis of facet joint of cervical spine Arthritis of lumbosacral spine Chronic pain Chief Complaint M48.02 m35.00 z79.899 m15.0 s/x consult with MRI 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 MCKENZIE KHALIL MARÍA LUMBAR FACET MBB L2 L3/DS 2 wk po lesion of ulnar nerve F/U AFTER 1ST LUMBAR MBB MARÍA LUMBAR FACET MBB L3 L5 /VW F/U AFTER 2ND MARÍA LUMBAR FACET MBB Reason for Visit Chronic neck pain Thyroid mass of unclear etiology Ulnar neuropathy at elbow of right upper extremity Arthritis of facet joint of cervical spine Arthritis of lumbosacral spine Chronic pain Ulnar neuropathy at elbow of right upper extremity Arthritis of facet joint of cervical spine Arthritis of lumbosacral spine Chronic pain Arthritis of facet joint of cervical spine Arthritis of lumbosacral spine Chronic pain Chief Complaint M48.02 m35.00 z79.899 m15.0 s/x consult with MRI 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 MCKENZIE KHALIL MARÍA LUMBAR FACET MBB L2 L3/DS 2 wk po lesion of ulnar nerve F/U AFTER 1ST LUMBAR MBB MARÍA LUMBAR FACET MBB L3 L5 /VW F/U AFTER 2ND MARÍA LUMBAR FACET MBB right thyroid nodule Reason for Visit Chronic neck pain Thyroid mass of unclear etiology Ulnar neuropathy at elbow of right upper extremity Arthritis of facet joint of cervical spine Arthritis of lumbosacral spine Chronic pain Ulnar neuropathy at elbow of right upper extremity Arthritis of facet joint of cervical spine Arthritis of lumbosacral spine Chronic pain Arthritis of facet joint of cervical spine Arthritis of lumbosacral spine Chronic pain Chief Complaint m35.00 z79.899 m15.0 s/x consult with MRI 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 MCKENZIE KHALIL MARÍA LUMBAR FACET MBB L2 L3/DS 2 wk po lesion of ulnar nerve F/U AFTER 1ST LUMBAR MBB MARÍA LUMBAR FACET MBB L3 L5 /VW F/U AFTER 2ND MARÍA LUMBAR FACET MBB right thyroid nodule MARÍA LUMBAR FACET RFA L4 L5/CJ Reason for Visit Chronic neck pain Thyroid mass of unclear etiology Ulnar neuropathy at elbow of right upper extremity Arthritis of facet joint of cervical spine Arthritis of lumbosacral spine Chronic pain Ulnar neuropathy at elbow of right upper extremity Arthritis of facet joint of cervical spine Arthritis of lumbosacral spine Chronic pain Arthritis of facet joint of cervical spine Arthritis of lumbosacral spine Chronic pain Chief Complaint s/x consult with MRI 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 MCKENZIE KHALIL MARÍA LUMBAR FACET MBB L2 L3/DS 2 wk po lesion of ulnar nerve F/U AFTER 1ST LUMBAR MBB MARÍA LUMBAR FACET MBB L3 L5 /VW F/U AFTER 2ND MARÍA LUMBAR FACET MBB right thyroid nodule MARÍA LUMBAR FACET RFA L4 L5/CJ F/U AFTER MARÍA LUMB RFA Reason for Visit Chronic neck pain Thyroid mass of unclear etiology Ulnar neuropathy at elbow of right upper extremity Arthritis of facet joint of cervical spine Arthritis of lumbosacral spine Chronic pain Ulnar neuropathy at elbow of right upper extremity Arthritis of facet joint of cervical spine Arthritis of lumbosacral spine Chronic pain Arthritis of facet joint of cervical spine Arthritis of lumbosacral spine Chronic pain Arthritis of facet joint of cervical spine Arthritis of lumbosacral spine Chronic pain Chief Complaint 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 MCKENZIE KHALIL MARÍA LUMBAR FACET MBB L2 L3/DS 2 wk po lesion of ulnar nerve F/U AFTER 1ST LUMBAR MBB MARÍA LUMBAR FACET MBB L3 L5 /VW F/U AFTER 2ND MARÍA LUMBAR FACET MBB right thyroid nodule MARÍA LUMBAR FACET RFA L4 L5/CJ F/U AFTER MARÍA LUMB RFA M35.00 Z79.899 M15.0 Reason for Visit Arthritis of facet j oint of cervical spine Arthritis of lumbosacral spine Chronic pain Ulnar neuropathy at elbow of right upper extremity Arthritis of facet joint of cervical spine Arthritis of lumbosacral spine Chronic pain Arthritis of facet joint of cervical spine Arthritis of lumbosacral spine Chronic pain Arthritis of facet joint of cervical spine Arthritis of lumbosacral spine Chronic pain Chief Complaint 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 MCKENZIE KHALIL MARÍA LUMBAR FACET MBB L2 L3/DS 2 wk po lesion of ulnar nerve F/U AFTER 1ST LUMBAR MBB MARÍA LUMBAR FACET MBB L3 L5 /VW F/U AFTER 2ND MARÍA LUMBAR FACET MBB right thyroid nodule MARÍA LUMBAR FACET RFA L4 L5/CJ F/U AFTER MARÍA LUMB RFA M35.00 Z79.899 M15.0 CERVICAL MBB C3 C4 LEFT/CJ Reason for Visit Arthritis of facet j oint of cervical spine Arthritis of lumbosacral spine Chronic pain Ulnar neuropathy at elbow of right upper extremity Arthritis of facet joint of cervical spine Arthritis of lumbosacral spine Chronic pain Arthritis of facet joint of cervical spine Arthritis of lumbosacral spine Chronic pain Arthritis of facet joint of cervical spine Arthritis of lumbosacral spine Chronic pain Chief Complaint MARÍA LUMBAR FACET MBB L2 L3/DS 2 wk po lesion of ulnar nerve F/U AFTER 1ST LUMBAR MBB MARÍA LUMBAR FACET MBB L3 L5 /VW F/U AFTER 2ND MARÍA LUMBAR FACET MBB right thyroid nodule MARÍA LUMBAR FACET RFA L4 L5/CJ F/U AFTER MARÍA LUMB RFA M35.00 Z79.899 M15.0 CERVICAL MBB C3 C4 LEFT/CJ F/U LEFT CERVICAL MBB Reason for Visit Ulnar neuropathy at elbow of right upper extremity Arthritis of facet joint of cervical spine Arthritis of lumbosacral spine Chronic pain Arthritis of facet joint of cervical spine Arthritis of lumbosacral spine Chronic pain Arthritis of facet joint of cervical spine Arthritis of lumbosacral spine Chronic pain Arthritis of facet joint of cervical spine Arthritis of lumbosacral spine Chronic pain Chief Complaint F/U AFTER 1ST LUMBAR MBB MARÍA LUMBAR FACET MBB L3 L5 /VW F/U AFTER 2ND MARÍA LUMBAR FACET MBB right thyroid nodule MARÍA LUMBAR FACET RFA L4 L5/CJ F/U AFTER MARÍA LUMB RFA M35.00 Z79.899 M15.0 CERVICAL MBB C3 C4 LEFT/CJ F/U LEFT CERVICAL MBB LEFT CERVICAL MBB C3 C4/DS F/U AFTER 2ND LEFT CERVICAL MBB Reason for Visit Arthritis of facet j oint of cervical spine Arthritis of lumbosacral spine Chronic pain Arthritis of facet joint of cervical spine Arthritis of lumbosacral spine Chronic pain Arthritis of facet joint of cervical spine Arthritis of lumbosacral spine Chronic pain Arthritis of facet joint of cervical spine Arthritis of lumbosacral spine Chronic pain Tremor of right hand Arthritis of facet joint of cervical spine Arthritis of lumbosacral spine Chronic pain Chief Complaint MARÍA LUMBAR FACET M BB L3 L5 /VW F/U AFTER 2ND MARÍA LUMBAR FACET MBB right thyroid nodule MARÍA LUMBAR FACET RFA L4 L5/CJ F/U AFTER MARÍA LUMB RFA M35.00 Z79.899 M15.0 CERVICAL MBB C3 C4 LEFT/CJ F/U LEFT CERVICAL MBB LEFT CERVICAL MBB C3 C4/DS F/U AFTER 2ND LEFT CERVICAL MBB LEFT CERVICAL FACET RFA C3 C4 /VW Reason for Visit Arthritis of facet j oint of cervical spine Arthritis of lumbosacral spine Chronic pain Arthritis of facet joint of cervical spine Arthritis of lumbosacral spine Chronic pain Arthritis of facet joint of cervical spine Arthritis of lumbosacral spine Chronic pain Tremor of right hand Arthritis of facet joint of cervical spine Arthritis of lumbosacral spine Chronic pain Chief Complaint F/U AFTER 2ND MARÍA KUSH MBAR FACET MBB right thyroid nodule MARÍA LUMBAR FACET RFA L4 L5/CJ F/U AFTER MARÍA LUMB RFA M35.00 Z79.899 M15.0 CERVICAL MBB C3 C4 LEFT/CJ F/U LEFT CERVICAL MBB LEFT CERVICAL MBB C3 C4/DS F/U AFTER 2ND LEFT CERVICAL MBB LEFT CERVICAL FACET RFA C3 C4 /VW F/U LEFT CERVICAL FACET RFA Reason for Visit Arthritis of facet j oint of cervical spine Arthritis of lumbosacral spine Chronic pain Arthritis of facet joint of cervical spine Arthritis of lumbosacral spine Chronic pain Arthritis of facet joint of cervical spine Arthritis of lumbosacral spine Chronic pain Tremor of right hand Arthritis of facet joint of cervical spine Arthritis of lumbosacral spine Chronic pain Arthritis of facet joint of cervical spine Arthritis of lumbosacral spine Chronic pain Osteoarthritis of right hip Chief Complaint * Routine f/u: 'heart stuart [...] by PCP. * He can follow-up with [facility] on an as-needed basis. Reason for Referral Reason [facility]G BUE Diagnosis 1 Spinal stenosis of l umbar region without neurogenic claudication (M48.061) Referral Organization [facility] urosurgery Referring Provider First Name Мария Referring Provider Last Name David Referring Provider Specialty Nurse Pract itioner Referred Organization [facility] Referred Provider Primo Jenkins Referred Address [address] [place] [phone] Referred Provider Specialty Neurology Referral Priority Routine [...] section and content) DATE CREATED AUTHOR 05/09/2018 [facility] DATE CREATED AUTHOR AUTHOR'S ORGANIZ ATION 05/10/2018 [facility] DATE CREATED AUTHOR AUTHOR'S ORGANIZ ATION 03/29/2023 [facility] DATE CREATED AUTHOR AUTHOR'S ORGANIZ ATION 04/01/2023 [facility] DATE CREATED AUTHOR AUTHOR'S ORGANIZ ATION 04/05/2023 [facility] Center DATE CREATED AUTHOR AUTHOR'S ORGANIZ ATION 12/18/2023 [facility] DATE CREATED AUTHOR AUTHOR'S ORGANIZ ATION 02/20/2024 [facility] DATE CREATED AUTHOR AUTHOR'S ORGANIZ ATION 05/01/2024 [facility] DATE CREATED AUTHOR AUTHOR'S ORGANIZ ATION 05/19/2024 [facility] ical Center DATE CREATED AUTHOR AUTHOR'S ORGANIZ ATION 07/12/2024 [facility] DATE CREATED AUTHOR AUTHOR'S ORGANIZ ATION 08/18/2024 [facility] EPIC Care Teams (unrecognized sec tion and content) Team Status: Active Member Role Status Dates Edenilson Mcleod MD Primary Care Provider Active Team Status: Inactive Member Role Status Dates Sascha Sutton DO Primary Care Provider Active Start: May 28, 2024 End: May 28, 2024 Edenilson Mcleod MD Attending Provider Active Sta rt: May 28, 2024 End: May 28, 2024 Team Status: Inactive Member Role Status Dates Carlos Eden DO Attending Provider Active S tart: May 30, 2024 End: May 30, 2024 Team Status: Active Member Role Status Dates Edenilson Mcleod MD Primary Care Provide r, Attending Provider Active Start: June 06, 2024 Team Status: Inactive Member Role Status Dates Edenilson Mcleod MD Primary Care Provide r, Attending Provider Active Start: June 06, 2024 End: June 06, 2024 Team Status: Inactive Member Role Status Dates Edenilson Mcleod MD Primary Care Provide r, Attending Provider Active Start: June 26, 2024 End: June 26, 2024 Team Status: Inactive Member Role Status Dates Edenilson Mcleod MD Primary Care Provider Active Start: July 03, 2024 End: July 03, 2024 Romel Davis MD Attending Provider Active St art: July 03, 2024 End: July 03, 2024 Team Status: Inactive Member Role Status Dates Edenilson Mcleod MD Primary Care Provide r, Attending Provider Active Start: July 04, 2024 End: July 04, 2024 Team Status: Active Member Role Status Radha Mcleod MD Primary Care Provide r, Attending Provider Active Start: July 04, 2024 Team Status: Inactive Member Role Status Radha Mcleod MD Primary Care Provide r, Attending Provider Active Start: July 12, 2024 End: July 12, 2024 Team Status: Inactive Member Role Status Radha Mcleod MD Primary Care Provide r, Attending Provider Active Start: July 18, 2024 End: July 18, 2024 Team Status: Active Member Role Status Radha Mcleod MD Primary Care Provide r, Attending Provider Active Start: July 18, 2024 Team Status: Inactive Member Role Status Radha Mcleod MD Primary Care Provide r, Attending Provider Active Start: July 25, 2024 End: July 25, 2024 Team Status: Active Member Role Status Radha Mcleod MD Primary Care Provide r, Attending Provider Active Start: August 13, 2024 Team Status: Inactive Member Role Status Radha Mcleod MD Primary Care Provide r, Attending Provider Active Start: August 13, 2024 End: August 13, 2024 Team Status: Inactive Member Role Status Radha Mcleod MD Primary Care Provide r, Attending Provider Active Start: August 20, 2024 End: August 20, 2024 Team Status: Active Member Role Status Radha Mcleod MD Primary Care Provider Active Team Status: Active Member Role Status Radha Sutton DO Primary Care Provider Active Start: May 16, 2024 Edenilson cMleod MD Attending Provider Active Sta rt: May 16, 2024 Team Status: Inactive Member Role Status Radha Sutton DO Primary Care Provider Active Start: May 16, 2024 End: May 16, 2024 Edenilson Mcleod MD Attending Provider Active Sta rt: May 16, 2024 End: May 16, 2024 Team Status: Inactive Member Role Status Radha Sutton DO Primary Care Provider Active Start: May 28, 2024 End: May 28, 2024 Edenilson Mcleod MD Attending Provider Active Sta rt: May 28, 2024 End: May 28, 2024 Team Status: Inactive Member Role Status Radha Eden DO Attending Provider Active S tart: May 30, 2024 End: May 30, 2024 Team Status: Active Member Role Status Radha Mcleod MD Primary Care Provide r, Attending Provider Active Start: June 06, 2024 Team Status: Inactive Member Role Status Radha Mcleod MD Primary Care Provide r, Attending Provider Active Start: June 06, 2024 End: June 06, 2024 Team Status: Inactive Member Role Status Radha Mcleod MD Primary Care Provide r, Attending Provider Active Start: June 26, 2024 End: June 26, 2024 Team Status: Inactive Member Role Status Radha Mcleod MD Primary Care Provider Active Start: July 03, 2024 End: July 03, 2024 Romel Davis MD Attending Provider Active St art: July 03, 2024 End: July 03, 2024 Team Status: Inactive Member Role Status Radha Mcleod MD Primary Care Provide r, Attending Provider Active Start: July 04, 2024 End: July 04, 2024 Team Status: Active Member Role Status Radha Mcleod MD Primary Care Provide r, Attending Provider Active Start: July 04, 2024 Team Status: Inactive Member Role Status Radha Mcleod MD Primary Care Provide r, Attending Provider Active Start: July 12, 2024 End: July 12, 2024 Team Status: Inactive Member Role Status Radha Mcleod MD Primary Care Provide r, Attending Provider Active Start: July 18, 2024 End: July 18, 2024 Team Status: Active Member Role Status Radha Mcleod MD Primary Care Provide r, Attending Provider Active Start: July 18, 2024 Team Status: Inactive Member Role Status Radha Mcleod MD Primary Care Provide r, Attending Provider Active Start: July 25, 2024 End: July 25, 2024 Team Status: Inactive Member Role Status Radha Mcleod MD Primary Care Provide r, Attending Provider Active Start: August 13, 2024 End: August 13, 2024 Team Status: Inactive Member Role Status Radha Sutton DO Primary Care Provider Active Adam Davis MD Attending Provider Active Team Status: Active Member Role Status Radha Sutton DO Primary Care Provider Active Team Status: Inactive Member Role Status Dates Sascha Sutton DO Primary Care Provider Active WILLOW Paul Attending Provider Active Team Status: Inactive Member Role Status Dates Sascha Sutton DO Primary Care Provider Active KARIN Madrigal Attending Provider Active Team Status: Inactive Member Role Status Dates Sascha Mariegeneosmani , DO Primary Care Provider Active Melanie Trujillo , DO Attending Provider Active Team Status: Inactive Member Role Status Dates Sascha Mariegeneosmani , DO Primary Care Provider, Attending Simba pfeiffer Active Team Status: Inactive Member Role Status Dates Sascha Mariegeneosmani , DO Primary Care Provider Active Edenilson Reinoso Jr, MD Emergency Provider Active Team Status: Inactive Member Role Status Dates Sascha Mariegeneosmani , DO Primary Care Provider Active Romel Orta , DO Emergency Provider Active Team Status: Inactive Member Role Status Dates Sascha Cynthiacierra , DO Primary Care Provider Active Zac Muniz MD Attending Provider Active Team Status: Inactive Member Role Status Dates Sascha Cynthiageneosmani , DO Primary Care Provider Active Christine Sanchez NP-Dannie Attending Provider Active Zac Muniz MD Referring Provider Active Team Status: Inactive Member Role Status Dates Sascha Cynthiageneosmani , DO Primary Care Provider Active Romel Davis MD Attending Provider Active Team Status: Inactive Member Role Status Dates Sascha Cynthiageneosmani , Primary Care Provider Active Start: September 12, [...] December 08, 2023 End: December 08, 2023 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 Relationship Specialty Start Date End Date Cynthiacierra Sascha Candelaria DO [address], [place] [address] PCP - General Family Medicine 09/23/22 Team Status: Inactive Member Role Status Dates Sascha CynthiaDO cierra Primary Care Provide r, Attending Provider Active Start: December 15, 2023 End: December 15, 2023 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 Relationship Specialty Start Date End Date Sascha Sutton MD [address] [facility], [place] [address] PCP - General Family Medicine 12/28/23 Team [...] February 09, 2024 End: February 09, 2024 Team Status: Inactive Member Role Status Dates Sascha Sutton DO Primary Care Provider Active Start: February 21, 2024 End: February 21, 2024 Mckenzie Khalil MD Attending Provider Active Star t: February 21, 2024 End: February 21, 2024 Team Status: Inactive Member Role Status Dates Sascha Sutton DO Primary Care Provider Active Start: March 08, 2024 End: March 08, 2024 Mckenzie Khalil MD Attending Provider Active Star t: March 08, 2024 End: March 08, 2024 Team Status: Inactive Member Role Status Dates Sascha Sutton DO Primary Care Provider Active Start: March 13, 2024 End: March 13, 2024 Romel Davis MD Attending Provider Active St art: March 13, 2024 End: March 13, 2024 Team Status: Inactive Member Role Status Dates Sascha CynthiaDO cierra Primary Care Provider Active Start: March 29, 2024 End: March 29, 2024 Mckenzie Khalil MD Attending Provider Active Star t: March 29, 2024 End: March 29, 2024 Team Status: Inactive Member Role Status Dates Sascha Sutton DO Primary Care Provider Active Start: April 02, 2024 End: April 02, 2024 Mckenzie Khalil MD Attending Provider Active Star t: April 02, 2024 End: April 02, 2024 Team Status: Inactive Member Role Status Dates Sascha CynthiaDO cierra Primary Care Provider Active Start: April 09, 2024 End: April 09, 2024 Mckenzie Khalil MD Attending Provider Active Star t: April 09, 2024 End: April 09, 2024 Team Status: Inactive Member Role Status Dates Sascha Sutton DO Primary Care Provider Active Start: April 11, 2024 End: April 11, 2024 Edenilson Mcleod MD Attending Provider Active Sta rt: April 11, 2024 End: April 11, 2024 Mckenzie Khalil MD Referring Provider Active Star t: April 11, 2024 End: April 11, 2024 Team Status: Active Member Role Status Dates Sascha Sutton DO Primary Care Provider Active Start: April 09, 2024 Mckenzie Khalil MD Attending Provider, Other Provider A ctive Start: April 09, 2024 Team Status: Inactive Member Role Status Dates Sascha Sutton DO Primary Care Provider Active Start: April 18, 2024 End: April 18, 2024 Edenilson Mcleod MD Attending Provider Active Sta rt: April 18, 2024 End: April 18, 2024 Team Status: Active Member Role Status Dates Sascha Sutton DO Primary Care Provider Active Start: April 18, 2024 Edenilson Mcleod MD Attending Provider Active Sta rt: April 18, 2024 Team Status: Inactive Member Role Status Dates Sascha Sutton DO Primary Care Provider Active Start: April 24, 2024 End: April 24, 2024 Mckenzie Khalil MD Attending Provider Active Star t: April 24, 2024 End: April 24, 2024 Team Status: Inactive Member Role Status Dates Sascha Sutton DO Primary Care Provider Active Start: May 02, 2024 End: May 02, 2024 Edenilson Mcleod MD Attending Provider Active Sta rt: May 02, 2024 End: May 02, 2024 Team Status: Active Member Role Status Dates Edenilson Mcleod MD Primary Care Provide r, Attending Provider Active Start: August 13, 2024 Team Status: Inactive Member Role Status Dates Edenilson Mcleod MD Primary Care Provide r, Attending Provider Active Start: August 20, 2024 End: August 20, 2024 Goals (unrecognized section and content) Goals [...] BE BASED ON THE PRIMARY CLINICAL RECORDS. [facility] provides no warranty or guarantee of the accuracy or completeness of information in this document.
--- NOTE | 2024-08-27 07:11 | XR_ITS ---
The [address] [address] Patient Name: MARVA TORRE MRN: [id number] date: 1955 Sex: M Assigned Patient Location: [facility] Current Patient Location: [facility] Accession/Order Number: [id number] Exam Date: 08/27/2024 07:05 Report Date: 08/27/2024 10:54 At the request of: JANET MUNIZ Procedure: XR abdomen 1V EXAMINATION: XR abdomen 1V HISTORY: Kidney stones COMPARISON: Recent/ FINDINGS: KIDNEY/URETER - RIGHT: 4 mm calcification projects over the upper pole, stable KIDNEY/URETER - LEFT: No visible renal or ureteral calcifications. PELVIS: No visible ureteral calcifications. Any visible calcifications favor phleboliths. BOWEL: No abnormal dilation or deviation. BONES: No acute abnormality. Lumbar spine fusion L4-L5 OTHER: Negative. No abnormal gaseous collections. XR/XR abdomen 1V IMPRESSION: 4 mm right nephrolith Electronically authenticated by: HOWIE KUMAR Date: 08/27/2024 10:54
== END 2024-08-27 07:02 | disposition home or self-care (01) ==
LOC: RAD 07:02
PROVIDERS: PCP Family Medicine; Visit Provider Urology
DX: N20.0 Calculus of kidney (principal)
CPT/HCPCS: 74018

== ENCOUNTER 2024-09-06 12:08 | Outpatient (OUT) | payer MEDICARE, SELFPAY ==
--- OUTSIDE RECORDS SUMMARY | 2024-09-06 12:15 | XMS_ITS | CCD ---
Author Organization [facility] Care Team Providers Care Data Base Design Analyst Name Role Phone REBEKAH REED Unavailable Unavailable REBEKAH REED Unavailable Unavailable DO Sascha Sutton Primary Care Provider MD Adam Davis Attending Provider [phone] Herman, DO Caicedo Primary Care Provider [phone] WILLOW Sanchez Attending Provider KARIN Ibrahim Attending Provider DO Sascha Sutton Primary Care Provider [phone] WILLOW Sanchez Attending Provider DO Sascha Sutton Primary Care Provider [phone] WILLOW Sanchez Attending Provider PAY ., DR FERNANDEZ Admitting Unavailable BALJINDER, DR PRIMO De Oliveira Consulting Unavailable HERMAN, DR SASCHA Candelaria Primary Care Unavailable PAY ., DR FERNANDEZ Attending Unavailable MAGDY .MATT Consulting Unavailabl SHAIKH Claritza Menendez Attending Unavailable SHAIKH Claritza MULTANI Admitting Unavailable BALJINDER, DR PRIMO De Oliveira Consulting Unavailable HERMAN, DR SASCHA Candelaria Primary Care Unavailable ROBERTA WOOD Consulting Unavailable JOSÉ MIGUEL NOVOA Consulting Unavailable SHAIKH Claritza MULTANI Consulting Unavailable GAVIN MINER Consulting Unavailable Sascha Sutton Unavailable Unavailable Unavailable DO Melanie Trujillo Attending Provider Dr. Alfonso Trujillo Attending Unava ilable Herman, Dr. Sascha Espinoza Primary Care Jennie ildonaldo Trujillo, Dr. Alfonso Parham Attending Jennie Trujillo, Dr. Alfonso Parham Referring Unava miguel Sutton, Dr. Sascha Espinoza Primary Care Unava ilable Furlong, DO Sascha Primary Care Provider Jaleesang, DO Sascha Attending Provider MD Edenilson Reinoso Jr Emergency Provider DO Romel Orta Emergency Provider Unavai MD Zac Aguirre Attending Provider [phone] WILLOW Sanchez Attending Provider MD Zac Muniz Referring Provider [phone] SASCHA SUTTON Primary Care Physician Furlong, DO Sascha Primary Care Provider [phone] MD Zac Muniz Attending Provider Furlong, DO Sascha Primary Care Provider [phone] MD Zac Muniz Attending Provider Furlong, DO Sascha Primary Care Provider MD Romel Davis Attending Provider Furlong, DO Sascha Primary Care Provider MD Zac Muniz Attending Provider MD Romel Davis Attending Provider Furlong, DO Sascha Primary Care Provider MD Romel Davis Attending Provider MD Zac Muniz Attending Provider Furgeneng DOSascha Primary Care Provider Cynthialong, DO Sascha Primary Care Provider [phone] MD Romel Davis Attending Provider Furlong, DO Sascha Attending Provider SASCHA SUTTON Referring Unavailable FURCIERRA, SASCHA G Primary Care Unavailable Unavailable Primary Care Provider Unavailabl e Sascha Sutton MD Primary Care Provider [phone] WILLOW Hernandez Attending Provider Мария Hernandez Unavailable MD Edenilson Reinoso Jr Emergency Provider Furlong, DO Sascha Primary Care Provider MD Romel Davis Attending Provider [phone] Furlong, DO Sascha Attending Provider WILLOW Hernandez Attending Provider MD Edenilson Reinoso Jr Emergency Provider MD Zac Muniz Attending Provider FURLONG, SASCHA G Referring Unavailable FURLONG, SASCHA G Primary Care Unavailable FURLONG, SASCHA G Referring Unavailable FURLONG, SASCHA G Primary Care Unavailable FURLONG, SASCHA G Referring Unavailable FURLONG, SASCHA G Primary Care Unavailable Furlong, DO Sascha Primary Care Provider MD Mckenzie Khalil Attending Provider [phone] MD Romel Davis Attending Provider Furlong, DO Sascha Primary Care Provider WILLOW Hernandez Attending Provider Furlong, DO Sascha Primary Care Provider Furlong, DO Sascha Primary Care Provider FURLONG, SASCHA G Referring Unavailable FURLONG, SASCHA G Primary Care Unavailable FURLONG, SASCHA G Attending Unavailable FURLONG, SASCHA G Referring Unavailable FURLONG, SASCHA G Primary Care Unavailable DO Carlos Eden Attending Provider Furlong, DO Sascha Primary Care Provider MD Mckenzie Khalil Attending Provider [phone] Furlong, DO Sascha Primary Care Provider Furlong, DO Sascha Primary Care Provider MD Mckenzie Khalil Attending Provider MD Edenilson Mcleod Primary Care Provider MD Romel Davis Attending Provider ZAIRA CAIN Attending Unavailable MURCEK, CARLOS Navarro Attending Unavailable MURCEK, CARLOS W Attending Unavailable MURCEK, CARLOS W Attending Unavailable KHALIL, MCKENZIE Referring Unavailable KYRA CONKLIN Attending Unavailable Furlong, Sascha Primary Care Unavailable Davis, Romel Admitting Unavailable Davis, Romel Attending Unavailable Furlong, Sascha Primary Care Unavailable Мария Hernandez Attending Unavailable HernandezМария Admitting Unavailable Khalil, Mckenzie E Attending Unavailable Furlong, Sascha Primary Care Unavailable Khalil, Mckenzie E Admitting Unavailable Khalil Mckenzie E Attending Unavailable Khalil, Mckenzie E Admitting Unavailable Furlong, Sascha Primary Care Unavailable Furlong, Sascha Primary Care Unavailable Edenilson Reinoso Jr Admitting Unavailable Edenilson Reinoso Jr Attending Unavailable Furlong, Sascha Primary Care Unavailable Zac Muniz Admitting Unavailable Zac Muniz Attending Unavailable Khalil, Mckenzie E Admitting Unavailable Khalil, Mckenzie E Attending Unavailable Furlong, Sascha Primary Care Unavailable Furlong, Sascha Primary Care Unavailable Davis, Romel Admitting Unavailable Davis, Romel Attending Unavailable Murcehima, Carlos Admitting Unavailable Murcek, Carlos Attending Unavailable Davis, Romel Admitting Unavailable Davis, Romel Attending Unavailable Edenilson Mcleod Primary Care Unavailable Furlong, Sascha Primary Care Unavailable Davis, Romel Attending Unavailable Davis, Romel Admitting Unavailable Furlong, Sascha Primary Care Unavailable Davis, Romel Admitting Unavailable Davis, Romel Attending Unavailable Furlong, Sascha Primary Care Unavailable Zac Muniz Admitting Unavailable Zac Muniz Attending Unavailable Jaime Murcia II Attending UnavailJaime Mandujano II Admitting UnavailEdenilson Darling Primary Care Unavailable Furlong, Sascha Primary Care Unavailable Furlong, Sascha Attending Unavailable Furlong, Sascha Admitting Unavailable Furlong, Sascha Primary Care Unavailable Мария Hernandez Admitting Unavailable Мария Hernandez Attending Unavailable MD Jaime Murcia II Attending Provider Zac MUNIZ Attending Unavailable LEAH ROA Attending Unavailable MUNIZ, Zac De Oliveira Attending Unavailable FLAVIO, Zac De Oliveira Admitting Unavailable FLAVIO, Zac De Oliveira Attending Unavailable FLAVIO, Zac De Oliveira Attending Unavailable FLAVIO, Zac De Oliveira Attending Unavailable MUNIZ, Zac De Oliveira Attending Unavailable Daria Jimenez Attending Unavailable Allergies Allergy Classification Reported Allergen(s) Allergy Type Date of Onset Reaction(s) Facility Calcium Carbonate (4 sources) Calcium Carbonate Drug Allergy 04-09-20 Nausea [facility] Cephalosporins (antibiotic) (8 sources) Cephalexin Drug Allergy 04-09-20 Unknown Reaction [facility] Magnesium (4 sources) Magnesium Drug Allergy 04-09-20 Nausea [facility] Opioid Agonists (4 sources) oxyCODONE Drug Allergy 04-09-20 Hallucinating [facility] Sulfonamides (antibiotic) (4 sources) Sulfonamides (Antibiotic) Drug Allergy 04-09-20 Rash [facility] (20 sources) cephalexin; Translations: [CEPHALEXIN] Drug Allergy 04-25-20 18 Unknown (qualifier value) [facility] Repository (20 sources) oxyCODONE; Translations: [OXYCODONE] Drug Allergy 04-25-20 18 Hallucinations (finding), Hallucinations [facility] (20 sources) Sulfonamides (Antibiotic); Translations: [SULFA (SULFONAMIDE ANTIBIOTICS)] Propensity to adverse reactions to drug (disorder) 05-20-20 14 Other (See Comments) [facility] Repository (2 sources) ASPIRIN, BUFFERED; Translations: [ASPIRIN, BUFFERED] Propensity to adverse reactions to drug (disorder) 04-25-20 18 AOF [facility] (20 sources) Calcium Carbonate; Translations: [calcium carbonate] Drug Allergy 07-19-20 19 GI intolerance, Nausea [facility] (20 sources) Cephalosporins (Antibiotic); Translations: [Cephalosporins] Allergy to substance 05-20-20 14 Other (See Comments) [facility] (20 sources) Magnesium; Translations: [magnesium] Drug Allergy 07-19-20 19 GI intolerance, GI Disturbance, Nausea [facility] (1 source) Sulfonamides (Antibiotic) Drug allergy (disorder) [facility] Repository (4 sources) Sulfamethoxazole; Translations: [sulfa] Drug Allergy Unknown [facility] 250 DO Work Phone: (9 sources) Sulfonamides (Antibiotic); Translations: [sulfa drugs] Drug allergy Unknown (qualifier value) [facility] (5 sources) Aspirin,Buffd-Willow cium Carb-Mag; Translations: [ASPIRIN,BUFFD-CA LCIUM CARB-MAG] Propensity to adverse reactions to drug 09-29-20 22 Vomiting [facility] (1 source) Aspirin Drug Allergy 10-13-20 15 [facility] [employer] (1 source) Sulfonamides (Antibiotic) Drug Allergy 05-20-20 14 Rash [facility] [employer] (1 source) Aspirin Drug Allergy Unknown [facility] Other (1 source) Sulfacetamide in [place] Drug allergy Unknown [facility] [employer] Other Medications Current Medications Medication Drug Class(es) [...] times a day as needed for pain. 05/09/2023 Active Start: 03-31-2023 Acetaminophen Active 1000 [...] by mouth once daily at bedtime Hydrocodone-Acetaminophen (Harrison) 5-325 mg tablet Discontinued 1 TAB PO Daily at bedtime 14 May 12, 2019 July 19, 2019 10:35am Start: 04-25-2018 End: 11-05-2018 take 1 tablet by mouth every four to six hours Hydrocodone-Acetaminophen (Harrison) 5-325 mg tablet Discontinued 1 - 2 [...] budesonide 0.032 mg/actuat metered dose nasal spray (3 sources) Corticosteroid budesonide (GUSTAVO KEYLA AQUA) 32 mcg/actuation nasal spray 62,500 sprays. Active budesonide (Rhin ocort AQ) 32 MCG/ACT nasal spray 62,500 sprays 0 Active carboxymethylcellulose 0.01 mg/mg ophthalmic gel [...] tablet Start: 09-30-2023 take 1 capsule by [facility] in the morning colchicine (MITIGARE) 0.6 mg capsule Take 1 capsule (0.6 mg total) by mouth in the morning. 09/30/2023 Active Colchicine 0.6 M G 5 mL Orally Active fexofenadine (8 sources) Histamine-1 Receptor Antagonist Start: 05-09-2023 Seema [...] hydrochloride 60 mg extended release oral tablet (2 sources) alpha-Adrenergic Agonist pseudoephedrine-guai FENesin (MUCINEX D) 60-600 mg per 12 hr tablet Active hydroCHLOROthiazide 12.5 mg / lisinopril 20 mg oral tablet (20 sources) Thiazide Diuretic, Angiotensin Converting Enzyme Inhibitor Sta rt: take 1 tablet by mouth once daily lisinopril-hydroCHLOROthiazide (PRINZIDE,ZESTORETIC) 20-12.5 mg per tablet take 1 tablet by mouth daily 90 tablet 1 08/29/2024 Active Start: 09-19-2023 hydrochlorothi azide-lisinopril 12.5 mg-20 mg Tab Refill(s) 0 Start Date: 09/19/23 Status: Ordered Start: 05-12-2019 End: 08-29-2024 take 1 tablet by mouth once daily in the morning Lisinopril-Hydrochlorothiazide Active [...] (20 sources) Antirheumatic Agent Start: 04-25-2018 take 1 mg by mouth once daily leflunomide 10 mg oral tablet mg tab(s), Oral, Daily, Refills(s) 0 Start Date: 05/09/23 Status: Ordered leucovorin 5 mg oral tablet (20 sources) [...] 2019 2:29am loratadine 10 mg oral tablet (2 sources) Start: 03-28-2023 take 1 tablet by mouth in the morning loratadine (CLARITIN) 10 mg tablet Indications: Allergic rhinitis Take 1 tablet (10 mg total) by mouth in the morning. 30 tablet 03/28/2023 Active meloxicam 15 mg oral tablet (2 sources) Nonsteroidal Anti-inflammatory Drug Start: 09-03-2024 meloxicam 15 mg Tab Refills(s) 0 Start Date: 09/03/24 Status: Ordered Start: 08-29-2024 take 15 mg by mouth once daily Meloxicam Active 15 MG PO daily 30 August 29, 2024 12:00am methotrexate 1000 mg injection (20 sources) Folate [...] November 05, 2018 1:00am taken on saturdays methotrexate, PF , 25 mg/mL chemo syringe methotrexate sodium (PF) 25 mg/mL injection solution Active methotrexate 2.5 mg/mL chemo oral solution Take 1 mL (2.5 mg total) by mouth. Active Methotrexate 2.5 MG 1 needle Orally once a week *please review for potential _update for e-prescription and drug interaction check* Active Methotrexate Sod ium 1 GM Injection Solution Reconstituted USE DIRECTED. Quantity: 0 Refills: 0 Ordered: 30-Mar-2023 DO Active methylPREDNISolone 4 mg oral tablet (20 sources) Corticosteroid Start: 05-09-2023 End: 05-02-2024 Medrol 4 mg Tab Refills(s) 0 Start Date: 05/09/23 Status: Ordered [...] sources) Leukotriene Receptor Antagonist Start: 04-25-2018 take 1 mg by mouth once daily montelukast 10 mg Tab mg tab(s), Oral, Daily, Refills(s) 0 Start Date: 05/09/23 Status: Ordered nabumetone 750 mg oral tablet (20 sources) [...] PERSISTS. Quantity: 1 Refills: 0 Ordered: 30-Mar-2023 Ronnie FERRELL Alfonso Start : 30-Mar-2023 Active new start omeprazole [...] 25, 2018 12:00am take 1 capsule by [facility] every twelve hours Omeprazole 40 MG 1 capsule Orally bid Active Potassium Bicarb-Citric Acid (Klor-Con/Ef) 25 mEq tablet, effervescent (19 sources) Start: 04-02-2024 Potassium Bicarb-Citric Acid (Klor-Con/Ef) 25 mEq tablet, effervescent Active 25 MEQ PO Twice daily April 02, 2024 12:00am potassium bicarbonate 25 meq effervescent oral tablet (3 sources) Start: 12-14-2023 take 1 tablet by mouth in the morning KLOR-CON/EF 25 mEq disintegrating tablet Take 1 tablet (25 mEq total) by mouth in the morning and 1 tablet (25 mEq total) before bedtime. 12/14/2023 Active Potassium Chloride (1 source) Klor-Con 10 Acti ve prednisoLONE acetate 10 mg/ml ophthalmic suspension (20 sources) Corticosteroid Start: 04-02-2024 take 1 drop(s) into the eye(s) three times daily Prednisolone Acetate (Pred Forte) 1 % drops,suspension Active 1 DROPS EYE-RIGHT Three times daily April 02, 2024 12:00am Start: 08-22-2023 prednisoLONE a cetate (PRED FORTE) 1 % ophthalmic suspension 08/22/2023 Active Start: 05-09-2023 prednisoLONE O ral, Daily, Refills(s) [...] 30-Mar-2023 DO Active Refresh Dry Eye Therapy (8 sources) Start: 05-09-2023 Refresh Dry Ey e Therapy Eye-Both, QID, Refill(s) 0 Start Date: 05/09/23 Status: Ordered simvastatin 20 mg oral tablet (20 sources) HMG-CoA Reductase Inhibitor Start: 07-19-2019 take 1 mg by mouth once daily at bedtime simvastatin 20 mg Tab mg tab(s), Oral, Once a day (at bedtime), Refills(s) 0 Start Date: 05/09/23 Status: Ordered Start: 04-25-2018 End: 07-19-2019 take 10 mg [...] day(s), # 60 cap(s), Refills(s) 0, Pharmacy: [facility]/pharmacy #[id number], 173, cm, 09/19/23 9:41:00 EDT, Height/Length Dosing, 97.5, kg, 09/19/23 9:41:00 EDT, Weight Dosing Start Date: 01/03/24 Stop Date: 02/02/24 Status: Ordered Start: 05-09-2023 End: 06-08-2023 take 1 capsule by mouth twice daily Flomax 0.4 mg Cap 0.4 mg = 1 cap(s), Oral, BID, X 30 day(s), # 60 cap(s), Refills(s) 0, Pharmacy: [facility] [id number], 173, cm, 05/09/23 16:02:00 EDT, Height/Length Dosing, 97.5, kg, 05/09/23 16:02:00 EDT, Weight Dosing Start Date: 05/09/23 Stop Date: 06/08/23 Status: Ordered Start: 05-03-2023 End: 04-02-2024 take 1 capsule by mouth once daily tamsulosin 0.4 mg Cap 0.4 mg = 1 cap(s), Oral, Daily, # 30 cap(s), Refills(s) 11, [id number], 173, cm, 03/20/24 12:27:00 EDT, Height/Length Dosing, 97.5, kg, 03/20/24 12:27:00 EDT, Weight Dosing Start Date: 03/20/24 Status: Ordered Start: 04-25-2018 End: 11-05-2018 take 1 capsule [...] 03-31-2023 Triamcinolone Acetonide (Nasal Allergy) 55 mcg Aerosol,[place] Active 1 SPRAY INTRANASAL Daily March 31, 2023 12:00am Start: 03-31-2018 Kenalog -40 mg March, 10 mg Completed/Discontinued Medications Medication Drug Class(es) Dates Sig (Normalized) Sig (Original) chlorhexidine gluconate 40 mg/ml medicated liquid soap (1 source) Hibiclens 4 % Externally Not-Taking/PRN ciprofloxacin 500 mg oral tablet (18 sources) Quinolone Antimicrobial Start: 04-09-2024 End: 05-02-2024 take 1 tablet by mouth every two [...] 1:17pm Effervescent Potassium 25 mEq oral tablet (6 sources) Start: 09-19-2023 End: 09-13-2024 take 1 tablet by mouth twice daily Effervescent Potassium 25 mEq oral tablet 25 mEq = 1 tab(s), Oral, BID, X 90 day(s), # 180 tab(s), Refills(s) 3, Pharmacy: [facility]/pharmacy #[id number], 173, cm, 09/19/23 9:41:00 EDT, [...] pain., # 30 tab(s), Refills(s) 0, Pharmacy: [facility] [id number], 173, cm, 05/09/23 16:02:00 EDT, Height/Length Dosing, 97.5, kg, 05/09/23 16:02:00 EDT, Weight Dosing Start Date: 05/09/23 Status: Ordered levoFLOXacin 500 mg oral tablet (20 sources) Quinolone Antimicrobial Start: 01-03-2024 End: 03-29-2024 take 500 mg by mouth once daily Levofloxacin Discontinued 500 MG PO Daily 03 25January 03, 2024 1:00am March 29, 2024 11:11am ondansetron 4 mg disintegrating oral tablet (20 [...] (1 source) take 1 tablet by christopher once daily as needed Vitamin D 1000 UNIT 1 tablet Orally Once a day *please review for potential _update for e-prescription and drug interaction check* Not-Taking/PRN vitamin e d-alpha 400 unt oral capsule (1 source) take 1 capsule by mo [facility] every twenty-four hours Vitamin E 400 UNIT [...] 05-03-2023 Episodic Cancer; other and unspecified primary (4 sources) Malignant neoplasm of eye; Translations: [Malignant neoplasm of unspecified site of unspecified eye] Onset: 4 Resolved: 4 01-19-2024 Chronic Coagulation and hemorrhagic disorders (7 sources) Lupus anticoagulant disorder; Translations: [Primary hypercoagulable state] Onset: 2 12-14-2023 Chronic Coronary atherosclerosis and other heart disease (1 source) Atherosclerotic heart disease of [place] coronary artery without angina pectoris; Translations: [ASHD [place] W/O ANGINA PECTORIS] Onset: 3 Chronic Diseases of white blood cells (20 sources) Leukocytosis; Translations: [Elevated white blood cell count, unspecified] Onset: 4 01-03-2024 Chronic Disorders of lipid metabolism (12 sources) Hyperlipidemia, unspecified; Translations: [Hyperlipidemia] Onset: 3 12-14-2023 Chronic Esophageal disorders (1 source) Diffuse spasm of esophagus; Translations: [Dyskinesia of esophagus] Chronic Esophageal disorders (1 source) Esophagitis; Translations: [Esophagitis, unspecified] Episodic Essential hypertension (11 sources) Essential (primary) hypertension; Translations: [Hypertensive disorder] Onset: 7 12-14-2023 Chronic Genitourinary symptoms and ill-defined conditions (1 source) Incontinence without sensory awareness; Translations: [Incontinence without sensory awareness] Onset: 4 Chronic Genitourinary symptoms and ill-defined conditions (12 sources) Blood in urine; Translations: [Gross hematuria] Onset: 3 Episodic Headache; including migraine (2 sources) Cluster headache; Translations: [Cluster headache syndrome, unspecified, not intractable] Onset: 2 09-29-2022 Chronic Hyperplasia of prostate (7 sources) Benign prostatic hypertrophy without outflow obstruction; Translations: [Benign prostatic hyperplasia without lower urinary tract symptoms] Onset: 4 Chronic Inflammation; infection of eye (except that caused by tuberculosis or sexually transmitteddisease) (4 sources) Iritis; Translations: [Unspecified iridocyclitis] Onset: 4 01-19-2024 Episodic Nonspecific chest pain (7 sources) Other chest pain; Translations: [Chest pain] Onset: 3 Episodic Osteoarthritis (16 sources) Osteoarthritis of knee; Translations: [Osteoarthritis of knee, unspecified] Onset: 2 09-29-2022 Chronic Osteoporosis (4 sources) Osteoporosis; Translations: [Age-related osteoporosis without current pathological fracture] Onset: 4 01-19-2024 Chronic Other acquired deformities (20 sources) Lumbar spondylolisthesis; Translations: [Spondylolisthesis, lumbar region] Onset: 4 07-25-2019 Episodic Other acquired deformities (20 sources) Spondylolisthesis, lumbar region; Translations: [Spondylolisthesis] 02-09-2024 Episodic Other aftercare (1 source) Other jail (current) drug therapy; Translations: [OTH DETENTION CURRENT DRUG THERAPY] Onset: 3 Episodic Other aftercare (1 source) 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; Translations: [DETENTION CURRENT USE OF ASPIRIN] Onset: 3 Episodic Other aftercare (1 source) High risk drug monitoring status; Translations: [termite inspector (current) use of opiate analgesic] Episodic Other congenital anomalies (1 source) Cleft palate; Translations: [Cleft palate, unspecified] Onset: 2 09-29-2022 Chronic Other congenital anomalies (2 sources) Cleft palate with cleft lip; Translations: [Unspecified cleft palate with unilateral cleft lip] Onset: 2 06-14-2024 Chronic Other diseases of kidney and ureters (1 source) Hydronephrosis with renal and ureteral calculous obstruction; Translations: [Hydronephrosis with renal and ureteral calculous obstruction] Onset: 8 Episodic Other diseases of kidney and ureters (3 sources) Urinary tract obstruction; Translations: [Hydronephrosis with renal and ureteral calculous obstruction] Onset: 3 Episodic Other diseases of kidney and ureters (10 sources) Hydronephrosis; Translations: [Unspecified hydronephrosis] Onset: 4 05-09-2023 Episodic Other ear and sense organ disorders (2 sources) Hearing loss; Translations: [Unspecified hearing loss, unspecified ear] Onset: 2 09-29-2022 Chronic Other ear and sense organ disorders (2 sources) Decreased hearing ; Translations: [Unspecified hearing loss, bilateral] Onset: 4 06-14-2024 Chronic Other gastrointestinal disorders (20 sources) Dysphagia; Translations: [Dysphagia, unspecified] Onset: 4 04-26-2018 Episodic Other inflammatory condition of skin (3 sources) Lupus erythematosus 01-19-2024 Chronic Other lower respiratory disease (1 source) Other forms of dyspnea; Translations: [OTHER FORMS OF DYSPNEA] Onset: 3 Episodic Other lower respiratory disease (3 sources) Dyspnea on exertion; Translations: [Shortness of breath] Episodic Other nervous system disorders (20 sources) Piriformis syndrome; Translations: [Lesion of sciatic nerve, unspecified lower limb] Onset: 4 05-12-2019 Chronic Other nervous system disorders (20 sources) Lesion of ulnar nerve, right upper limb; Translations: [Lesion of ulnar nerve] Onset: 4 12-14-2023 Chronic Other nervous system disorders (2 sources) Carpal tunnel syndrome; Translations: [Carpal tunnel syndrome, unspecified upper limb] Onset: 8 09-29-2022 Chronic Other nervous system disorders (2 sources) Luo's metatarsalgia; Translations: [Lesion of plantar nerve, unspecified lower limb] Onset: 2 09-29-2022 Chronic Other nervous system disorders (18 sources) Chronic pain; Translations: [Other chronic pain] [...] [Lesion of ulnar nerve, right upper limb] Onset: 4 02-09-2024 Chronic Other nervous system disorders (20 sources) Other chronic pain; Translations: [Other chronic pain] 04-11-2024 Chronic Other nervous system disorders (1 source) Paresthesia; Translations: [Paresthesia of skin] 12-14-2023 Episodic Other nervous system disorders (5 sources) Finding of hand region; Translations: [Tremor, unspecified] 07-12-2024 Episodic Other nervous system disorders (5 sources) Tremor, unspecified; Translations: [Abnormal involuntary movements] 07-12-2024 Episodic Other non-traumatic joint disorders (1 source) Pain in right knee; Translations: [Pain in joint, lower leg] 12-28-2023 Episodic Other non-traumatic joint disorders (1 source) Pain in right hip; Translations: [Pain in right hip] Onset: 4 Episodic Other non-traumatic joint disorders (2 sources) Hip pain; Translations: [Pain in right hip] 08-27-2024 Episodic Other nutritional; endocrine; and metabolic disorders (1 source) Obesity, unspecified; Translations: [OBESITY UNSPECIFIED] Onset: 3 Chronic Other nutritional; endocrine; and metabolic disorders (1 source) Body mass index (BMI) 33.0-33.9, adult; Translations: [BODY MASS INDEX BMI 33.0-33.9 ADULT] Onset: 3 Chronic Other nutritional; endocrine; and metabolic disorders (3 sources) Obesity; Translations: [Obesity, unspecified] Chronic Other nutritional; endocrine; and metabolic disorders (3 sources) Obesity caused by energy imbalance; Translations: [...] Onset: 3 Episodic Other upper respiratory disease (2 sources) Allergic rhinitis; Translations: [Allergic rhinitis, unspecified] Onset: 7 09-29-2022 Chronic Residual codes; unclassified (1 source) Postprocedural state finding; Translations: [Other specified postprocedural states] Episodic Residual codes; unclassified (1 source) Other specified postprocedural states Episodic Rheumatoid arthritis and related disease (6 sources) Rheumatoid arthritis; Translations: [Rheumatoid arthritis] 01-19-2024 Chronic Screening and history of mental health and substance abuse codes (4 sources) Personal history of nicotine dependence; Translations: [Ex-smoker] Onset: 3 Episodic Comment on above: quit in the ; Spondylosis; intervertebral disc disorders; other back problems (20 sources) Degeneration of cervical intervertebral disc; Translations: [Other cervical disc degeneration, unspecified cervical region] Onset: 4 01-19-2024 Chronic Systemic lupus erythematosus and connective tissue disorders (9 sources) Systemic lupus erythematosus, unspecified; Translations: [Autoimmune connective tissue disorder] Onset: 2 12-14-2023 Chronic Thyroid disorders (1 source) Nontoxic single thyroid nodule; Translations: [Nontoxic single thyroid nodule] Onset: 4 Chronic Thyroid disorders (20 sources) Mass of thyroid gland; Translations: [Other specified disorders of thyroid] Onset: 4 03-29-2024 Episodic Unclassified (1 source) Unknown / UNK(Unknown) Onset: 8 Unclassified (2 sources) Low back pain, unspecified; Translations: [Low back pain, unspecified] Onset: 4 Unclassified (3 sources) Patient encounter status 03-20-2024 Unclassified (1 source) MAW Onset: 4 Unclassified (1 source) Spinal stenosis, lumbar region without neurogenic claudication; Translations: [Spinal stenosis, lumbar region without neurogenic claudication] Onset: 4 Unclassified (1 source) Low back pain, unspecified; Translations: [Low back pain, unspecified] Onset: 4 Unclassified (1 source) Sjogren syndrome, unspecified; Translations: [Sjogren syndrome, unspecified] Onset: 4 Unclassified (1 source) Pain in right hip; Translations: [Pain in right hip] Onset: 3 Past or Other Problems Problem Classification Problem Date Documented Date Episodic/Chronic Abdominal pain (1 source) Unspecified abdominal pain; Translations: [Unspecified abdominal pain] Onset: 01-02-2024 Episodic Cancer; other and unspecified primary (2 sources) Squamous cell carcinoma of cornea; Translations: [Malignant neoplasm of unspecified cornea] Onset: 11-21-2013 Resolved: 04-15-2023 04-15-2023 Chronic E Codes: Fall (1 source) Fall from chair, initial encounter; Translations: [FALL FROM CHAIR INITIAL ENCOUNTER] Onset: 04-13-2022 Episodic Mood disorders (2 sources) Mood disorders Onset: 12-14-2023 Resolved: 06-14-2024 12-14-2023 Neoplasms of unspecified nature or uncertain behavior (2 sources) Conjunctival intraepithelial neoplasia; Translations: [Neoplasm of unspecified behavior of other specified sites] Onset: 10-13-2015 09-29-2022 Episodic Other connective tissue disease (2 sources) Right rotator cuff syndrome; Translations: [Unspecified rotator cuff tear or rupture of right shoulder, not specified as traumatic] Onset: 11-21-2008 09-29-2022 Episodic Other injuries and conditions due to external causes (1 source) Other specified injuries of head, initial encounter; Translations: [OTH SPEC INJURIES HEAD INITIAL ENC] Onset: 04-13-2022 Episodic Other nutritional; endocrine; and metabolic disorders (2 sources) Body mass index 25-29 - overweight; Translations: [Overweight] Onset: 01-20-2017 Resolved: 04-15-2023 04-15-2023 Episodic Other skin disorders (2 sources) Actinic keratosis; Translations: [Actinic keratosis] Onset: 02-12-2017 09-29-2022 Episodic Spondylosis; intervertebral disc disorders; other back problems (20 sources) Lumbar radiculopathy; Translations: [Radiculopathy, lumbar region] Onset: 04-09-2022 05-12-2019 Episodic Sprains and strains (5 sources) Sprain of joints and ligaments of unspecified parts of neck, initial encounter; Translations: [Glenoid labrum tear] Onset: 11-21-2008 09-29-2022 Episodic Superficial injury; contusion (1 source) Contusion of right upper arm, initial encounter; Translations: [CONTUSION RIGHT UPPER ARM INITIAL] Onset: 04-13-2022 Episodic Unclassified (1 source) Lumbar pain M54.50 Results Test Name Value Interpretation Reference Range Facility Ambulatory Visit Summaryon 1 Ambulatory Visit Summary Ambulatory Visit Summary VALENTIN TORRE :1955 Visit Date:09/03/2024 Ambulatory Visit Instructions Your Diagnosis Kidney stones BPH (benign prostatic hyperplasia) Your Care Team Attending Physician - Zac [...] Tab) leflunomide (leflunomide 10 mg oral tablet) meloxicam (meloxicam 15 mg Tab) methotrexate (methotrexate 1 g injection) methylPREDNISolone (Medrol 4 mg Tab) montelukast (montelukast 10 mg Tab) ocular lubricant (Refresh Dry Eye Therapy) omeprazole (omeprazole 40 mg Cap-DR) prednisoLONE simvastatin (simvastatin 20 mg Tab) tramadol (traMADOL 50 mg Tab) Procedures Performed Arm, Arthroplasty of knee, Arthroscopy of knee, Carpal tunnel release, Cleft palate, Colonoscopy, EGD - Esophagogastroduodenoscopy, Procedure on shoulder, Procedure on spine, Radio-frequency ablation system, Skin cancer, Tympanoplasty. Discharge Vitals Temperature (Temporal Artery) 37 ?C Heart Rate (Peripheral) 71 Respiratory Rate 16 Blood Pressure 129/77 Height 173 cm Height 68 in Weight 98.6 kg Weight 216.92 lb BMI 32.94 What to do next You Need to Schedule the Following Appointments Follow Up with FLAVIO ONEAL, EMILIA Richey When: Where: [facility] [address] , [facility] [place] [place] [address]- [phone] Medications What How Much When Why Instructions Unchanged potassium bicarbonate (Effervescent Potassium 25 mEq oral tablet) 1 Tablets By Mouth 2 times a day Duration: 90 Days Unchanged tamsulosin (tamsulosin 0.4 mg Cap) 1 Capsules By Mouth Every day BPH (benign prostatic hyperplasia) Unchanged acetaminophen (acetaminophen 500 mg Tab) By [...] prescribing physician if questions or concerns Unchanged meloxicam (meloxicam 15 mg Tab) Contact prescribing physician if questions [...] Contact prescribing physician if questions or concerns Allergies cephalexin (Unknown) oxyCODONE (Hallucinations) sulfa drugs (Unknown) Problems Ongoing - Any problem that you are currently receiving treatment for. Arthritis BPH (benign prostatic hyperplasia) DDD (degenerative disc disease), lumbar Eye cancer Gross hematuria History of kidney stones Hyperlipidemia Hypertension Iritis Kidney stones Lupus Osteoarthritis Osteoporosis Prostate cancer screening Rheumatoid arthritis Ureteral stone with hydronephrosis Patient Survey You may receive a survey via text or e-mail asking about your office visit. Please share your experience with us by completing your survey. We appreciate your feedback and thank you for choosing us for your care. Education Materials Laser Therapy for Kidney Stones, Care After After laser th (more content not included)... Normal [facility] Urology Office/Clinic Noteon 09-03-2024 Urology Office/Clinic Note Urology Office/Clinic Note Chief Complaint kidney stones HPI Staff 6 month f/u w/ KUB. DX: BPH, Incontinence w/o sensory awareness & Kidney Stones Potassium Bicarbonate 25mEq and Tamsulosin Dysuria: denies Incomplete bladder emptying: denies Hematuria: denies Frequency: denies Urgency: sometimes Nocturia: 2-3x Stream: good steady Leaking: only if he has to wait too long Post void dripping: denies Wearing pads/ Depends: pads if he goes out Urge incontinence: denies Stress incontinence: denies Incontinence without Sensory Awareness: denies Abdominal pain: denies Flank pain: denies Sexual complaints: denies History of Present Illness Tests reviewed: reviewed UA, KUB I have reviewed the previous health record information and history for this patient from [facility]. I have reviewed and verified the staff [...] See HPI. Physical Exam Vitals & Measurements T: 37 ?C(Temporal Artery) HR: 71(Peripheral) RR: 16 BP: 129/77 HT: 68 in HT: 173 cm WT: 98.6 kg WT: 216.92 lb BMI: 32.94 General Appearance: alert, no distress, well nourished, well developed male. Assessment/Plan Last seen by RICHELLE 1. Kidney stones (N20.0: Calculus of kidney) Electrolyte panel 10/20/23 - wnl. KUB 01/11/24 [facility] - Kidneys are partially obscured, R>L. Group of 3 tiny stones at the LLQ of the abdomen which are a couple mm in size and potentially renal stones. A stone overlying the RUP 3 mm which probably correlates w/the renal stone seen previously on that side. S/p L ESWL 02/16/24. KUB 08/27/24 [facility] - Stable 4 mm RUP stone. No L renal stones. Taking potassium bicarb 25 mEq twice daily. Reviewed imaging results. Discussed continued monitored vs intervention. Pt prefers latter. Risks/benefits of ESWL discussed. -Will schedule Right ESWL. The procedure risks, benefits, details and treatment alternatives have been discussed with the patient. These include blood in the urine, infection, bleeding around the kidney, kidney bruising, inability to break up the stone, need for blood transfusion, blockage from stone fragments, and need for additional procedures, among others. Full informed consent has been obtained. Will order General anesthesia. 2. BPH (benign prostatic hyperplasia) (N40.0: Benign prostatic hyperplasia without lower urinary tract symptoms) PSA (monitored by PCP): 04/08/23 - 1.77 PVR 05/17/24 - 47 mL. UA today negative for blood and infection. Taking Tamsulosin 0.4 mg qd. Not voicing any urinary habit complaints. -Cont Tamsulosin wo changes Follow-up With When Contact Information FLAVIO ONEAL, Zac De Oliveira, URL [facility] [address] [place] [address] [phone] Additional Instructions: esthela De Oliveira ESWL Patient Education Laser Therapy for Kidney Stones, Care After Laser Therapy for Kidney Stones I, Aedla Frias, personally scribed for Dr. Muniz on 09/03/2024 11:01:31. . Documentation recorded by the scribe, Adela Frias, accurately reflects the services(s) I performed and decisions made by me. Authenticated by Dr. Muniz on 09/03/2024 11:02:28. Problem List/Past Medical History Ongoing Arthritis BPH [...] Esophagogastroduodenoscopy, Procedure on shoulder, Procedure on spine, Radio-frequency ablation system, Skin cancer, Tympanoplasty. Medications acetaminophen 500 mg Tab, Oral, q6hr Seema D OTC 24HR, Oral, Daily aspirin 81 mg oral capsule, Oral, q24hr Effervescent Potassium 25 mEq oral tablet, 25 mEq= 1 tab(s), Oral, BID, 3 refills folic acid 1 mg Tab, Oral, Daily hydrochlorothiazide-lisinop ril 12.5 mg-20 mg Tab hydroxychloroquine 200 mg Tab, Oral, Daily leflunomide 10 mg oral tablet, Oral, Daily Medrol 4 mg Tab meloxicam 15 mg Tab methotrexate 1 g injection, IV, Once montelukast 10 mg Tab, Oral, Daily omeprazole 40 mg Cap-DR, Oral, Daily prednisoLONE, Oral, (more content not included)... Normal [facility] Comment on above: Result Comment: Elec tronically Signed By: Zac MUNIZ MD\.br\Date and Time Signed: 09/03/24 11:02 EDT\.br\Electronically Co-Signed By: Adela Frias\.br\Date and Time Co-Signed: 09/03/24 11:01 EDT XR hip RT min 2V(w/wo pelvis )*on 08-29-2024 XR hip RT min 2V(w/wo pelvis)* [facility] [address] [place] [address] XRay Report Signed Patient: Valentin Torre MR#: [id number] 29 : 1955 Acct:[id number] Age/Sex: 69 / M ADM Date: 08/29/24 Loc: [facility] Room: Type: [facility] Attending Dr: Jaime Murcia II, MD Copies to: Jaime Murcia MD Ordering Provider: Jaime Murcia MD Date of Service: 08/29/24 XR/XR hip RT min 2V(w/wo pelvis)*: M25.551 - Pain in right hip RIGHT HIP - 2 views: CLINICAL HISTORY: Hip pain for one year. COMPARISON: Right hip series 09/12/2023 FINDINGS: Mild degenerative changes of both hips. The right hip is similar and degeneration was compared to the prior study from 2022. Additional degenerative changes involving the visualized lower lumbar spine, SI joints and pubic symphysis. Hardware fixation involving the lower lumbar spine. XR/XR hip RT min 2V(w/wo pelvis)* IMPRESSION: MILD DEGENERATIVE CHANGES OF THE HIPS WITHOUT ACUTE BONY PROCESS.. Impression dictated by: Marcial Patel Jr., D.O.08/29/2024 2:18 PM Dictation Location: [place] [address] Transcribed By: [facility] 08/29/24 1418 Dictated By: Marcial Patel Jr, DO 08/29/24 1417 Signed By: 08/29/24 1418 Normal [facility] Alanine aminotransferase [En zymatic activity/volume] in Serum or PlasmaOrdered By: Romel Davis on 07-03-2024 ALT [Catalytic activity/Vol] 21 U/L Normal 7-52 [facility] Comment on above: Performed By: #### C 4, CH50, C3 ####[facility] ,#### ESR, CMP, ADDONUAPLUS, CBC ####[place] [id number] [place] [id number] [facility] Albumin [Mass/volume] in Ser um or Plasma by Bromocresol green (BCG) dye binding methoOrdered By: Romel Davis on 07-03-2024 Albumin BCG dye [Mass/Vol] 4.2 g/dL 3.5-5.7 [facility] Alkaline phosphatase [Enzyma tic activity/volume] in Serum or PlasmaOrdered By: Romel Davis on 07-03-2024 ALP [Catalytic activity/Vol] 85 U/L Normal 34-104 [facility] Comment on above: Result Comment: PERF ORMED BY: [facility] [place] [address] [place] [address] PATHOLOGIST [employer]ELAIN TECHNICIAN OLMAN ALBARRAN M.D. Performed By: #### C 4, CH50, C3 ####[facility] ,#### ESR, CMP, ADDONUAPLUS, CBC ####[address] Aspartate aminotransferase [ Enzymatic activity/volume] in Serum or PlasmaOrdered By: Romel Davis on 07-03-2024 AST [Catalytic activity/Vol] 16 U/L Normal 13-39 [facility] Comment on above: Performed By: #### C 4, CH50, C3 ####[facility] ,#### ESR, CMP, ADDONUAPLUS, CBC ####[address] Automated basophil %Ordered By: Romel Davis on 07-03-2024 Basophils/100 WBC (Bld) 0.5 % Normal . [facility] Comment on above: Performed By: #### C 4, CH50, C3 ####[facility] ,#### ESR, CMP, ADDONUAPLUS, CBC ####[address] Automated basophil countOrde red By: Romel Davis on 07-03-2024 Basophils (Bld) [#/Vol] 0.0 10*3/uL Normal 0.0-0.2 [facility] Comment on above: Performed By: #### C 4, CH50, C3 ####[facility] ,#### ESR, CMP, ADDONUAPLUS, CBC ####[address] Automated blood monocyte cou ntOrdered By: Romel Davis on 07-03-2024 Monocytes (Bld) [#/Vol] 0.4 10*3/uL Normal 0.0-0.8 [facility] Comment on above: Performed By: #### C 4, CH50, C3 ####[facility] ,#### ESR, CMP, ADDONUAPLUS, CBC ####[address] Automated eosinophil %Ordere d By: Romel Davis on 07-03-2024 Eosinophils/100 WBC (Bld) 1.1 % Normal . [facility] Comment on above: Performed By: #### C 4, CH50, C3 ####[facility] ,#### ESR, CMP, ADDONUAPLUS, CBC ####[address] Automated eosinophil countOr dered By: Romel Davis on 07-03-2024 Eosinophils (Bld) [#/Vol] 0.1 10*3/uL Normal 0.0-0.45 [facility] Comment on above: Performed By: #### C 4, CH50, C3 ####[facility] ,#### ESR, CMP, ADDONUAPLUS, CBC ####[address] [place] [address] [place] Automated monocyte %Ordered By: Romel Mendezrow on 07-03-2024 Monocytes/100 WBC (Bld) 7.9 % Normal . [facility] Comment on above: Performed By: #### C 4, CH50, C3 ####[facility] ,#### ESR, CMP, ADDONUAPLUS, CBC ####[address] Automated neutrophil %Ordere d By: Romel Mendezrow on 07-03-2024 Neutrophils/100 WBC (Bld) 76.5 % Normal . [facility] Comment on above: Performed By: #### C 4, CH50, C3 ####[facility] ,#### ESR, CMP, ADDONUAPLUS, CBC ####[address] Bacteria [Presence] in Urine by AutomatedOrdered By: Romelsera Davis on 07-03-2024 Bacteria Auto Ql (U) None seen [HPF] None Seen [facility] Bilirubin Test strip Ql (U)O rdered By: Romel Davis on 07-03-2024 Bilirubin Ql (U) Negative Negative [facility] Bilirubin.total [Mass/volume ] in Serum or PlasmaOrdered By: Romel Davis on 07-03-2024 Bilirubin [Mass/Vol] 0.5 mg/dL Normal 0.3-1.0 [facility] Comment on above: Performed By: #### C 4, CH50, C3 ####[facility] ,#### ESR, CMP, ADDONUAPLUS, CBC ####[address] Calcium [Mass/volume] in Ser um or PlasmaOrdered By: Romel Davis on 07-03-2024 Calcium [Mass/Vol] 8.7 mg/dL Normal 8.6-10.3 [facility] Comment on above: Performed By: #### C 4, CH50, C3 ####[facility] ,#### ESR, CMP, ADDONUAPLUS, CBC ####[address] Carbon dioxide, total [Moles /volume] in Serum or PlasmaOrdered By: Romel Mendezrow on 07-03-2024 CO2 [Moles/Vol] 22.6 mmol/L Normal 21.0-31.0 [facility] Comment on above: Performed By: #### C 4, CH50, C3 ####[facility] ,#### ESR, CMP, ADDONUAPLUS, CBC ####[address] Chloride [Moles/volume] in S ace or PlasmaOrdered By: Romel Ryan on 07-03-2024 Chloride [Moles/Vol] 105 mmol/L Normal 98-107 [facility] Comment on above: Performed By: #### C 4, CH50, C3 ####[facility] ,#### ESR, CMP, ADDONUAPLUS, CBC ####[address] Color of Urine by AutoOrdere d By: Romel Mendezrow on 07-03-2024 Color (U) Yellow Normal Yellow [facility] Comment on above: Order Comment: Name Collection Type:: Clean-Voided Midstream Performed By: #### C 4, CH50, C3 ####[facility] ,#### ESR, CMP, ADDONUAPLUS, CBC ####[address] Complement C3on 07-03-2024 Complement C3 127 mg/dL Normal 82-167 [facility] Comment on above: Result Comment: Perf ormed at: CB - [facility] [address] [id number] Senior Data Developer: Richy Ardon PhD, Phone: [phone] Performed By: #### C H50, C3, C4 #### [facility] , #### ADDONUAPLUS, CMP, ESR, CBC #### [address] Complement C4on 07-03-2024 Complement C4 15 mg/dL Normal 12-38 [facility] Comment on above: Result Comment: Perf ormed at: [facility] [id number] Senior Data Developer: Richy Ardon PhD, Phone: [phone] PERFORMED BY: [place] [address] PATHOLOGIST [employer]ELAIN TECHNICIAN OLMAN ALBARRAN M.D. Performed By: #### C H50, C3, C4 #### [facility] , #### ADDONUAPLUS, CMP, ESR, CBC #### [address] Complement Total (CH50)on Complement Total (CH50) 56 Normal >41 [facility] Comment on above: Result [...] determine out of range values. Performed at: [facility] [id number] Senior Data Developer: Richy Ardon PhD, Phone: [phone] PERFORMED BY: [place] [address] PATHOLOGIST P[employer]CELAIN TECHNICIAN OLMAN ALBARRAN M.D. Performed By: #### C H50, C3, C4 #### [facility] , #### ADDONUAPLUS, CMP, ESR, CBC #### [address] Complete Blood Count Auto Di ffon 07-03-2024 Mean Corpuscular HGB Conc 34.2 g/dL Normal 32.5-35.6 [facility] Comment on above: Performed By: #### C 4, CH50, C3 ####[facility] ,#### ESR, CMP, ADDONUAPLUS, CBC ####[address] NRBC% 0.1 /100{WBC} Normal 0-0.5 [facility] Comment on above: Performed By: #### C 4, CH50, C3 ####[facility] ,#### ESR, CMP, ADDONUAPLUS, CBC ####[address] Comprehensive Metabolic Pane vivek 07-03-2024 Albumin [Mass/Vol] 4.2 g/dL Normal 3.5-5.7 [facility] Comment on above: Performed By: #### C 4, CH50, C3 ####[facility] ,#### ESR, CMP, ADDONUAPLUS, CBC ####[address] GFR/1.73 sq M.predicted MDRD (S/P/Bld) [Vol rate/Area] mL/min/{1.73_m2} Normal [facility] Comment on above: Performed By: #### C 4, CH50, C3 ####[facility] ,#### ESR, CMP, ADDONUAPLUS, CBC ####[address] Creatinine [Mass/volume] in Serum or PlasmaOrdered By: Romel Davis on 07-03-2024 Creatinine [Mass/Vol] 0.87 mg/dL Normal 0.70-1.30 [facility] Comment on above: Performed By: #### C 4, CH50, C3 ####[facility] ,#### ESR, CMP, ADDONUAPLUS, CBC ####[address] Dipstick and Microscopicon 0 07-03-2024 Bacteria,Urine None Seen Normal None Seen [facility] Comment on above: Order Comment: Name Collection Type:: Clean-Voided Midstream Performed By: #### C 4, CH50, C3 ####[facility] ,#### ESR, CMP, ADDONUAPLUS, CBC ####[address] Bilirubin,Urine Negative Normal Negative [facility] Comment on above: Order Comment: Name Collection Type:: Clean-Voided Midstream Performed By: #### C 4, CH50, C3 ####[facility] ,#### ESR, CMP, ADDONUAPLUS, CBC ####[address] Glucose Ql (U) Normal Normal Normal [facility] Comment on above: Order Comment: Name Collection Type:: Clean-Voided Midstream Performed By: #### C 4, CH50, C3 ####[facility] ,#### ESR, CMP, ADDONUAPLUS, CBC ####[address] Hyaline Casts,Urine 9-19 High 0-8 [facility] Comment on above: Order Comment: Name Collection Type:: Clean-Voided Midstream Performed By: #### C 4, CH50, C3 ####[facility] ,#### ESR, CMP, ADDONUAPLUS, CBC ####[address] Mucus,Urine 1+ Critically abnormal [facility] Comment on above: Order Comment: Name Collection Type:: Clean-Voided Midstream Result Comment: PERF ORMED BY: [facility] [place] [address] [place] [address] PATHOLOGIST P[employer]ELAIN TECHNICIAN OLMAN ALBARRAN M.D. Performed By: #### C 4, CH50, C3 ####[facility] ,#### ESR, CMP, ADDONUAPLUS, CBC ####[place] [address] [place] Nitrite,Urine Negative Normal Negative [facility] Comment on above: Order Comment: Name Collection Type:: Clean-Voided Midstream Performed By: #### C 4, CH50, C3 ####[facility] ,#### ESR, CMP, ADDONUAPLUS, CBC ####[address] Occult Blood,Urine Negative Normal Negative [facility] Comment on above: Order Comment: Name Collection Type:: Clean-Voided Midstream Performed By: #### C 4, CH50, C3 ####[facility] ,#### ESR, CMP, ADDONUAPLUS, CBC ####[address] Protein,Urine Trace High Negative [facility] Comment on above: Order Comment: Name Collection Type:: Clean-Voided Midstream Performed By: #### C 4, CH50, C3 ####[facility] ,#### ESR, CMP, ADDONUAPLUS, CBC ####[address] RBC,Urine 1-2 Normal 0-4 [facility] Comment on above: Order Comment: Name Collection Type:: Clean-Voided Midstream Performed By: #### C 4, CH50, C3 ####[facility] ,#### ESR, CMP, ADDONUAPLUS, CBC ####[address] Specificy [place],Urine 1.027 Normal 1.001-1.03 0 [facility] Comment on above: Order Comment: Name Collection Type:: Clean-Voided Midstream Performed By: #### C 4, CH50, C3 ####[facility] ,#### ESR, CMP, ADDONUAPLUS, CBC ####[address] Squamous Epithelial Cell,Urine 1-2 Normal 0-2 [facility] Comment on above: Order Comment: Name Collection Type:: Clean-Voided Midstream Performed By: #### C 4, CH50, C3 ####[facility] ,#### ESR, CMP, ADDONUAPLUS, CBC ####[address] Urobilinogen,Urine 2 mg/dL High Normal [facility] Comment on above: Order Comment: Name Collection Type:: Clean-Voided Midstream Performed By: #### C 4, CH50, C3 ####[facility] ,#### ESR, CMP, ADDONUAPLUS, CBC ####[address] WBC,Urine 1-2 Normal 0-4 [facility] Comment on above: Order Comment: Name Collection Type:: Clean-Voided Midstream Performed By: #### C 4, CH50, C3 ####[facility] ,#### ESR, CMP, ADDONUAPLUS, CBC ####[address] Epithelial cells.squamous [# /area] in Urine sediment by Automated countOrdered By: Romel Davis on 07-03-2024 Epithelial cells.squamous Auto (Urine sed) [#/Area] 1-2 [HPF] 0-2 [facility] Erythrocyte Sedimentation Ra bruno 07-03-2024 ESR (Bld) [Velocity] 7 mm/h Normal 0-19 [facility] Comment on above: Result Comment: PERF ORMED BY: [facility] [place] [address] [place] [address] PATHOLOGIST PORCELAIN TECHNICIAN OLMAN ALBARRAN M.D. Performed By: #### C 4, CH50, C3 ####[facility] ,#### ESR, CMP, ADDONUAPLUS, CBC ####[place] [address] Erythrocyte distribution wid th [Ratio] by Automated countOrdered By: Romel Davis on 07-03-2024 Erythrocyte distribution width (RBC) [Ratio] 15.6 % High 12.0-14.8 [facility] Comment on above: Performed By: #### C 4, CH50, C3 ####[facility] ,#### ESR, CMP, ADDONUAPLUS, CBC ####[address] Erythrocyte sedimentation ra te by Photometric methodOrdered By: Romel Davis on 07-03-2024 ESR Photometric method (Bld) [Velocity] 7 mm/hr 0-19 [facility] Erythrocytes [#/area] in Uri ne sediment by Automated countOrdered By: Romel Davis on 07-03-2024 RBC Auto (Urine sed) [#/Area] 1-2 [HPF] 0-4 [facility] Erythrocytes [#/volume] in B lood by Automated countOrdered By: Romel Davis on 07-03-2024 RBC (Bld) [#/Vol] 5.10 10*6/uL Normal 3.90-5.60 [facility] Comment on above: Performed By: #### C 4, CH50, C3 ####[facility] ,#### ESR, CMP, ADDONUAPLUS, CBC ####[address] Glucose [Mass/volume] in Ser um or PlasmaOrdered By: Romel Davis on 07-03-2024 Glucose [Mass/Vol] 136 mg/dL High 70-100 [facility] Comment on above: ADA recommended refe rence rangeRandom Glucose Reference Range is dependent on time and content of last meal. Glucose of more than 200 mg/dL in a nonstressed, ambulatory subject supports the diagnosis of Diabetes Mellitus. Result Comment: [place] om Glucose Reference Range is dependent on time and content of last meal. Glucose of more than 200 mg/dL in a nonstressed, ambulatory subject supports the diagnosis of Diabetes Mellitus. ADA recommended reference range Performed By: #### C 4, CH50, C3 ####[facility] ,#### ESR, CMP, ADDONUAPLUS, CBC ####[address] Glucose [Mass/volume] in Uri ne by Test stripOrdered By: Romel Davis on 07-03-2024 Glucose Test strip (U) [Mass/Vol] Normal mg/dL Normal [facility] Hematocrit [Volume Fraction] of Blood by Automated countOrdered By: Romel Davis on 07-03-2024 Hematocrit (Bld) [Volume fraction] 44.6 % Normal 38.8-50.0 [facility] Comment on above: Performed By: #### C 4, CH50, C3 ####[facility] ,#### ESR, CMP, ADDONUAPLUS, CBC ####[address] Hemoglobin Test strip Ql (U) Ordered By: Romel Davis on 07-03-2024 Hemoglobin Ql (U) Negative Negative [facility] Hemoglobin [Mass/volume] in BloodOrdered By: Romel Davis on 07-03-2024 Hemoglobin (Bld) [Mass/Vol] 15.3 g/dL Normal 13.0-17.0 [facility] Comment on above: Performed By: #### C 4, CH50, C3 ####[facility] ,#### ESR, CMP, ADDONUAPLUS, CBC ####[place] [address] [place] Hyaline casts [#/area] in Ur ine sediment by Automated countOrdered By: Romel Davis on 07-03-2024 Hyaline casts Auto (Urine sed) [#/Area] 9-19 [LPF] High 0-8 [facility] Ketones [Presence] in Urine by Test stripOrdered By: Romel Davis on 07-03-2024 Ketones Ql (U) Trace High Negative [facility] Comment on above: Order Comment: Name Collection Type:: Clean-Voided Midstream Performed By: #### C 4, CH50, C3 ####[facility] ,#### ESR, CMP, ADDONUAPLUS, CBC ####[place] [address] [address] Leukocyte esterase [Presence ] in Urine by Test stripOrdered By: Romel Davis on 07-03-2024 Leukocyte esterase Test strip Ql (U) Negative Normal Negative [facility] Comment on above: Order Comment: Name Collection Type:: Clean-Voided Midstream Performed By: #### C 4, CH50, C3 ####[facility] ,#### ESR, CMP, ADDONUAPLUS, CBC ####[address] Leukocytes [#/area] in Urine sediment by Automated countOrdered By: Romel Davis on 07-03-2024 WBC Auto (Urine sed) [#/Area] 1-2 [HPF] 0-4 [facility] Leukocytes [#/volume] correc nat for nucleated erythrocytes in Blood by Automated counOrdered By: Romel Davis on 07-03-2024 WBC corrected for nucl RBC Auto (Bld) [#/Vol] 5.5 10*3/uL 4.1-10.5 [facility] Leukocytes [#/volume] in Blo od by Automated countOrdered By: Romel Davis on 07-03-2024 WBC (Bld) [#/Vol] 5.5 10*3/uL Normal 4.1-10.5 [facility] Comment on above: Performed By: #### C 4, CH50, C3 ####[facility] ,#### ESR, CMP, ADDONUAPLUS, CBC ####[address] Lymphocytes [#/volume] in Bl ood by Automated countOrdered By: Romel Davis on 07-03-2024 Lymphocytes (Bld) [#/Vol] 0.8 10*3/uL Low 1.00-4.8 [facility] Comment on above: Performed By: #### C 4, CH50, C3 ####[facility] ,#### ESR, CMP, ADDONUAPLUS, CBC ####[address] Lymphocytes/100 leukocytes i n Blood by Automated countOrdered By: Romel Davis on 07-03-2024 Lymphocytes/100 WBC (Bld) 14.0 % Normal . [facility] Comment on above: Performed By: #### C 4, CH50, C3 ####[facility] ,#### ESR, CMP, ADDONUAPLUS, CBC ####[address] MCH [Entitic mass] by Automa nat countOrdered By: Romel Davis on 07-03-2024 MCH (RBC) [Entitic mass] 30.0 pg Normal 27.5-35.2 [facility] Comment on above: Performed By: #### C 4, CH50, C3 ####[facility] ,#### ESR, CMP, ADDONUAPLUS, CBC ####[address] MCHC Auto (RBC) [Mass/Vol]Or dered By: Romel Davis on 07-03-2024 MCHC (RBC) [Mass/Vol] 34.2 g/dL 32.5-35.6 [facility] MCV [Entitic volume] by Auto mated countOrdered By: Romel Davis on 07-03-2024 MCV (RBC) [Entitic vol] 87.5 fL Normal 83.5-101 [facility] Comment on above: Performed By: #### C 4, CH50, C3 ####[facility] ,#### ESR, CMP, ADDONUAPLUS, CBC ####[address] Mucus [Presence] in Urine by AutomatedOrdered By: Romel Davis on 08-13-2024 Mucus Auto Ql (U) 1+ [LPF] Abnormal [facility] Neutrophils [#/volume] in Bl ood by Automated countOrdered By: Romel Davis on 07-03-2024 Neutrophils (Bld) [#/Vol] 4.2 10*3/uL Normal 1.8-7.7 [facility] Comment on above: Performed By: #### C 4, CH50, C3 ####[facility] ,#### ESR, CMP, ADDONUAPLUS, CBC ####[facility] [address] Nitrite Test strip Ql (U)Ord ered By: Romel Davis on 07-03-2024 Nitrite Ql (U) Negative Negative [facility] No Panel InformationOrdered By: Romel Davis on 07-03-2024 Estimated GFR (CKD-EPI) > 60.0 mL/Min [facility] Creatinine Clearance (Chem N/A [facility] Total Complement (CH50) 56 U/mL >41 [facility] Comment on above: Age Male Female 3 [...] determine out of range values.Performed at: - [facility] [id number] Director: Richy Ardon PhD, Phone: [phone] Nucleated erythrocytes [Pres ence] in Blood by Automated countOrdered By: Romel Davis on 07-03-2024 Nucleated RBC Auto Ql (Bld) 0.1 /100{WBC} 0-0.5 [facility] Platelet mean volume [Entiti c volume] in Blood by Automated countOrdered By: Romel Davis on 07-03-2024 Platelet mean volume (Bld) [Entitic vol] 8.2 fL Normal 6.6-10.1 [facility] Comment on above: Performed By: #### C 4, CH50, C3 ####[facility] ,#### ESR, CMP, ADDONUAPLUS, CBC ####[place] [address] [place] [id number] [facility] Platelets [#/volume] in Bloo d by Automated countOrdered By: Romel Davis on 07-03-2024 Platelets (Bld) [#/Vol] 160 10*3/uL Normal 150-450 [facility] Comment on above: Performed By: #### C 4, CH50, C3 ####[facility] ,#### ESR, CMP, ADDONUAPLUS, CBC ####[address] Potassium [Moles/volume] in Serum or PlasmaOrdered By: Romel Mendezrow on 07-03-2024 Potassium [Moles/Vol] 4.0 mmol/L Normal 3.5-5.1 [facility] Comment on above: Performed By: #### C 4, CH50, C3 ####[facility] ,#### ESR, CMP, ADDONUAPLUS, CBC ####[address] Protein Test strip (U) [Mass /Vol]Ordered By: Romel Mendezrow on 07-03-2024 Protein (U) [Mass/Vol] Trace mg/dL High Negative [facility] Protein [Mass/volume] in Ser um or PlasmaOrdered By: Romel Ryan on 07-03-2024 Protein [Mass/Vol] 6.3 g/dL Low 6.4-8.9 [facility] Comment on above: Performed By: #### C 4, CH50, C3 ####[facility] ,#### ESR, CMP, ADDONUAPLUS, CBC ####[address] Serum globulin measurement b y calculation (mass/volume)Ordered By: Romel Ryan on 07-03-2024 Globulin (S) [Mass/Vol] 2.1 g/dL [facility] Comment on above: Performed By: #### C 4, CH50, C3 ####[facility] ,#### ESR, CMP, ADDONUAPLUS, CBC ####[place] [address] [address] Serum or plasma albumin/glob ulin mass ratioOrdered By: Romel Davis on 07-03-2024 Albumin/Globulin [Mass ratio] 2.0 {ratio} [facility] Comment on above: Performed By: #### C 4, CH50, C3 ####[facility] ,#### ESR, CMP, ADDONUAPLUS, CBC ####[place] [address] [address] Serum or plasma anion gap de terminationOrdered By: Romel Davis on 07-03-2024 Anion gap [Moles/Vol] 13.4 mmol/L Normal 6.0-15.0 [facility] Comment on above: Performed By: #### C 4, CH50, C3 ####[facility] ,#### ESR, CMP, ADDONUAPLUS, CBC ####[place] [address] [address] Serum or plasma complement C 3 measurement (mass/volume)Ordered By: Romel Davis on 07-03-2024 Complement C3 [Mass/Vol] 127 mg/dL 82-167 [facility] Comment on above: Performed at: [facility] [place] [id number] Director: Richy Ardon PhD, Phone: [phone] Serum or plasma complement C 4 measurement (mass/volume)Ordered By: Romel Davis on 07-03-2024 Complement C4 [Mass/Vol] 15 mg/dL 12-38 [facility] Comment on above: Performed at: [facility] [place] [id number] Director: Richy Ardon PhD, Phone: [phone] Sodium [Moles/volume] in Ser um or PlasmaOrdered By: Romelsera Davis on 07-03-2024 Sodium [Moles/Vol] 137 mmol/L Normal 136-145 [facility] Comment on above: Performed By: #### C 4, CH50, C3 ####[facility] ,#### ESR, CMP, ADDONUAPLUS, CBC ####[address] Specific gravity Test strip (U) [Rel density]Ordered By: Romel Ryan on 07-03-2024 Specific gravity (U) [Rel density] 1.027 1.001-1.03 0 [facility] Urea nitrogen [Mass/volume] in Serum or PlasmaOrdered By: Romel Ryan on 07-03-2024 Urea nitrogen [Mass/Vol] 17 mg/dL Normal 7-25 [facility] Comment on above: Performed By: #### C 4, CH50, C3 ####[facility] ,#### ESR, CMP, ADDONUAPLUS, CBC ####[address] Urine appearanceOrdered By: Romel Davis on 07-03-2024 Appearance (U) Clear Normal Clear [facility] Comment on above: Order Comment: Name Collection Type:: Clean-Voided Midstream Performed By: #### C 4, CH50, C3 ####[facility] ,#### ESR, CMP, ADDONUAPLUS, CBC ####[address] Urobilinogen Test strip (U) [Mass/Vol]Ordered By: Romel Ryan on 07-03-2024 Urobilinogen (U) [Mass/Vol] 2 mg/dL High Normal [facility] pH of Urine by Test stripOrd ered By: Romel Ryan on 07-03-2024 pH (U) 6.5 [pH] Normal 5.0-9.0 [facility] Comment on above: Order Comment: Name Collection Type:: Clean-Voided Midstream Performed By: #### C 4, CH50, C3 ####[facility] ,#### ESR, CMP, ADDONUAPLUS, CBC ####[facility] [address] [place] [id number] [facility] Vivek 05-30-2024 L Specimen: [id number] Re ceived: 06/04/24 Status: SOUT Req Num: [id number] Spec Type: Cytology Subm Dr: Carlos Eden DO Tissues: A FNA SLIDES NOPATH (RT THYROID) Procedures: Cyto Int and Re, PAPSTN/11 Age/ Patient Sex Location Account Attending Physician Valentin Torre 69/M [place] [id number] Carlos Eden DO SPEC NUM: [id number] RECD: 06/04/24 STATUS: MAHSA REQ NUM: [id number] KATHRYN: 05/30/24- DR: Carlos Eden DO ENTERED: 06/04/[address]: SPEC TYPE: Cytology DEPT: CNG ENTERED BY: [id number] RECV BY: [id number] ORDERED: Cyto Int and Re, PAPSTN/11 ORDERED: Cyto Int and Re, PAPSTN/11 Pathological Diagnosis Thyroid nodule, right lobe, FNA: - Benign follicular nodule - [place] diagnostic category II Clinical Information Right Thyroid Nodule Gross Description Received fixed in Cytolyt is <1 ml pale pink cloudy fluid for cytology said to have been obtained as Right Thyroid Nodule . ThinPrep preparations are prepared for microscopic examination. Also received are 10 spray fixed smeared slides to be stained pap and a Veracyte vial stored at -20 for microscopic examination.(CC/nh) CPT Codes 91443 Specimen: [id number] Received: 06/04/24 Status: MAHSA Reyez Num: [id number] Spec Type: Cytology Subm Dr: Carlos Eden DO Tissues: A FNA SLIDES NOPATH (RT THYROID) Procedures: Cyto Int and Re, PAPSTN/11 Patient: Valentin Torre [id number] (Continued) Signed (signature on file) Shaggy Vega MD 06/05/24 1500 Normal [facility] Urology Office/Clinic Noteon 05-17-2024 [...] Electrolyte panel 10/20/23 - wnl. KUB 01/11/24 [facility] - Kidneys are partially obscured, R>L. Group [...] Contact Information BILL FERRERA, LEAH Feliz, URL [address] [place] [address] Additional Instructions: 6 mos f/u with KUB with PRW 09/03/23 Patient Education Benign Prostatic Hyperplasia Documentation recorded by the scribherrera Stanley accurately reflects the services(s) I performed and decisions made by me. Authenticated by Leah Roa PA-C on 05/17/2024 12:30:00. I, Teena Stanley, personally scribed for MATT Holbrook on 05/15/2024 [...] virus vaccine, inactivated 12/05/2022 Recorded SARS-CoV-2 (COVID-19) [id number].[id number] 10/08/2022 Recorded influenza virus vaccine, ina (more content not included)... [facility] Comment on above: Result Comment: Elec tronically Signed By: LEAH ROA PA-C\.br\Date and Time Signed: 05/17/24 12:31 EDT\.br\Electronically Co-Signed By: Teena Stanley\.br\Date and Time Co-Signed: 05/15/24 15:06 EDT [place] 05-16-2024 Screens [id number]#[id number] [facility] Screens [id number]#1.00TIFF [facility] Ambulatory Visit Summaryon 0 05-15-2024 Ambulatory Visit Summary VALENTIN TORRE :1955 Visit Date:05/15/2024 Ambulatory Visit Instructions Your Diagnosis BPH (benign prostatic hyperplasia) Kidney stones Your Care Team Attending Physician - LEAH ROA PA-C Primary Care Physician - SASCHA SUTTON [...] Follow-Up Appointments Tuesday 9:45 AM EDT With: FLAVIO ONEAL, Zac De Oliveira Where: [facility] Patient Educationon 05-15-20 Patient Education Urology Benign [...] Follow these instructions at home: ? Take dlqu-xju-wftvmnl and prescription medicines only as told by [...] the medicine (more content not included)... Normal [facility] [place] 03-21-2024 Screens [id number]#1.00TIFF [facility] Patient Educationon 03-20-20 24 Patient Education Urinary [...] stimulation). ? For women, using a medical coding manager to prevent urine leaks. This is [...] ? Consider (more content not included)... Normal [facility] Urology Office/Clinic Noteon 03-20-2024 Urology Office/Clinic [...] with voice recognition artificial intelligence software, specifically [employer], [employer] and or [employer]. Substitutions may have occurred due to the [...] Daily, # 30 cap(s), Refills(s) 11, Pharmacy: [facility]/pharmacy #[id number], 173, cm, 03/20/24 12:27:00 EDT, [...] voids, voiding maneuvers, avoid bladder irritants. Ordered: 94814 Measure Post Void residual urine and/or bladder [...] Urnls Dip Stick Auto w/o Microscopy POC 97948 3. Kidney stones (N20.0: Calculus of kidney) Electrolyte panel 10/20/23 - wnl. KUB 01/11/24 [facility] - Kidneys are partially obscured, R>L. Group [...] Contact Information FRANCIS Jimenez APRN, Daria Lechuga, FAM, UR (more content not included)... Normal [facility] Comment on above: Result Comment: Elec tronically Signed By: FRANCIS Jimenez APRN, [place] X\.br\Date and Time Signed: 03/20/24 13:12 EDT Alanine aminotransferase [En zymatic activity/volume] in Serum or PlasmaOrdered By: Romel Davis on 03-13-2024 ALT [Catalytic activity/Vol] 22 U/L Normal 7-52 [facility] Comment on above: Performed By: #### C 3, C4, CH50 ####[facility] ,#### ESR, ADDONUAPLUS, CMP, CBC ####[facility] [address] [place] [address] [facility] Albumin [Mass/volume] in Ser um or Plasma by Bromocresol green (BCG) dye binding methoOrdered By: Romel Davis on 03-13-2024 Albumin BCG dye [Mass/Vol] 3.7 g/dL 3.5-5.7 [facility] Alkaline phosphatase [Enzyma tic activity/volume] in Serum or PlasmaOrdered By: Romel Davis on 03-13-2024 ALP [Catalytic activity/Vol] 79 U/L Normal 34-104 [facility] Comment on above: Result Comment: PERF ORMED BY: [facility] [place] [address] [place] [address] PATHOLOGIST PORCELAIN TECHNICIAN OLMAN ALBARRAN M.D. Performed By: #### C 3, C4, CH50 ####[facility] ,#### ESR, ADDONUAPLUS, CMP, CBC ####[place] [address] [place] [id number] [facility] Aspartate aminotransferase [ Enzymatic activity/volume] in Serum or PlasmaOrdered By: Romel Davis on 03-13-2024 AST [Catalytic activity/Vol] 17 U/L Normal 13-39 [facility] Comment on above: Performed By: #### C 3, C4, CH50 ####[facility] ,#### ESR, ADDONUAPLUS, CMP, CBC ####[address] Automated basophil %Ordered By: Romel Davis on 03-13-2024 Basophils/100 WBC (Bld) 0.5 % Normal . [facility] Comment on above: Performed By: #### C 3, C4, CH50 ####[facility] ,#### ESR, ADDONUAPLUS, CMP, CBC ####[address] Automated basophil countOrde red By: Romel Davis on 03-13-2024 Basophils (Bld) [#/Vol] 0.0 10*3/uL Normal 0.0-0.2 [facility] Comment on above: Performed By: #### C 3, C4, CH50 ####[facility] ,#### ESR, ADDONUAPLUS, CMP, CBC ####[address] Automated blood monocyte cou ntOrdered By: Romel Mendezrow on 03-13-2024 Monocytes (Bld) [#/Vol] 0.7 10*3/uL Normal 0.0-0.8 [facility] Comment on above: Performed By: #### C 3, C4, CH50 ####[facility] ,#### ESR, ADDONUAPLUS, CMP, CBC ####[address] Automated eosinophil %Ordere d By: Romel Mendezrow on 03-13-2024 Eosinophils/100 WBC (Bld) 1.3 % Normal . [facility] Comment on above: Performed By: #### C 3, C4, CH50 ####[facility] ,#### ESR, ADDONUAPLUS, CMP, CBC ####[address] Automated eosinophil countOr dered By: Romel Mendezrow on 03-13-2024 Eosinophils (Bld) [#/Vol] 0.1 10*3/uL Normal 0.0-0.45 [facility] Comment on above: Performed By: #### C 3, C4, CH50 ####[facility] ,#### ESR, ADDONUAPLUS, CMP, CBC ####[place] [address] [address] Automated erythrocytes count in urine sediment (number/area)Ordered By: Romel Mendezrow on 03-13-2024 RBC Auto (Urine sed) [#/Area] 1-2 [HPF] 0-4 [facility] Automated leukocytes count i n urine sediment (number/area)Ordered By: Romel Mendezrow on 03-13-2024 WBC Auto (Urine sed) [#/Area] 0-1 [HPF] 0-4 [facility] Automated monocyte %Ordered By: Romel Mendezrow on 03-13-2024 Monocytes/100 WBC (Bld) 10.7 % Normal . [facility] Comment on above: Performed By: #### C 3, C4, CH50 ####[facility] ,#### ESR, ADDONUAPLUS, CMP, CBC ####[address] Automated neutrophil %Ordere d By: Romel Mendezrow on 03-13-2024 Neutrophils/100 WBC (Bld) 75.4 % Normal . [facility] Comment on above: Performed By: #### C 3, C4, CH50 ####[facility] ,#### ESR, ADDONUAPLUS, CMP, CBC ####[address] Automated urine color determ inationOrdered By: Romel Mendezrow on 03-13-2024 Color (U) Dark yellow Critically abnormal Yellow [facility] Comment on above: Order Comment: Name Collection Type:: Clean-Voided Midstream Performed By: #### C 3, C4, CH50 ####[facility] ,#### ESR, ADDONUAPLUS, CMP, CBC ####[place] [address] [address] Bilirubin Test strip Ql (U)O rdered By: Romel Davis on 03-13-2024 Bilirubin Ql (U) Negative Negative [facility] Bilirubin.total [Mass/volume ] in Serum or PlasmaOrdered By: Romel Davis on 03-13-2024 Bilirubin [Mass/Vol] 0.6 mg/dL Normal 0.3-1.0 [facility] Comment on above: Performed By: #### C 3, C4, CH50 ####[facility] ,#### ESR, ADDONUAPLUS, CMP, CBC ####[place] [address] [place] Calcium [Mass/volume] in Ser um or PlasmaOrdered By: Romel Mendezrow on 03-13-2024 Calcium [Mass/Vol] 8.8 mg/dL Normal 8.6-10.3 [facility] Comment on above: Performed By: #### C 3, C4, CH50 ####[facility] ,#### ESR, ADDONUAPLUS, CMP, CBC ####[address] Carbon dioxide, total [Moles /volume] in Serum or PlasmaOrdered By: Romel Mendezrow on 03-13-2024 CO2 [Moles/Vol] 25.0 mmol/L Normal 21.0-31.0 [facility] Comment on above: Performed By: #### C 3, C4, CH50 ####[facility] ,#### ESR, ADDONUAPLUS, CMP, CBC ####[place] [id number] [place] Chloride [Moles/volume] in S ace or PlasmaOrdered By: Romel Mendezrow on 03-13-2024 Chloride [Moles/Vol] 105 mmol/L Normal 98-107 [facility] Comment on above: Performed By: #### C 3, C4, CH50 ####[facility] ,#### ESR, ADDONUAPLUS, CMP, CBC ####[address] Complement C3on 03-13-2024 Complement C3 153 mg/dL Normal 82-167 [facility] Comment on above: Result Comment: Perf ormed at: [address] [id number] Senior Data Developer: Richy Ardon PhD, Phone: [phone] Performed By: #### C 3, C4, CH50 ####[facility] ,#### ESR, ADDONUAPLUS, CMP, CBC ####[address] Complement C4on 03-13-2024 Complement C4 24 mg/dL Normal 12-38 [facility] Comment on above: Result Comment: PERF ORMED BY: [address] [place] [address] PATHOLOGIST PORCELAIN TECHNICIAN OLMAN ALBARRAN M.D. Performed By: #### C 3, C4, CH50 ####[facility] ,#### ESR, ADDONUAPLUS, CMP, CBC ####[address] Complement Total (CH50)on Complement Total (CH50) >60 Normal >41 [facility] Comment on above: Result [...] determine out of range values. Performed at: [address] [id number] Senior Data Developer: Richy Ardon PhD, Phone: [phone] PERFORMED BY: [address] [place] [address] PATHOLOGIST PORCELAIN TECHNICIAN OLMAN ALBARRAN M.D. Performed By: #### C 3, C4, CH50 ####[facility] ,#### ESR, ADDONUAPLUS, CMP, CBC ####[address] Complete Blood Count Auto Di ffon 03-13-2024 Mean Corpuscular HGB Conc 33.9 g/dL Normal 32.5-35.6 [facility] Comment on above: Performed By: #### C 3, C4, CH50 ####[facility] ,#### ESR, ADDONUAPLUS, CMP, CBC ####[address] NRBC% 0.1 /100{WBC} Normal 0-0.5 [facility] Comment on above: Performed By: #### C 3, C4, CH50 ####[facility] ,#### ESR, ADDONUAPLUS, CMP, CBC ####[address] Comprehensive Metabolic Pane vivek 03-13-2024 Albumin [Mass/Vol] 3.7 g/dL Normal 3.5-5.7 [facility] Comment on above: Performed By: #### C 3, C4, CH50 ####[facility] ,#### ESR, ADDONUAPLUS, CMP, CBC ####[address] GFR/1.73 sq M.predicted MDRD (S/P/Bld) [Vol rate/Area] mL/min/{1.73_m2} Normal [facility] Comment on above: Performed By: #### C 3, C4, CH50 ####[facility] ,#### ESR, ADDONUAPLUS, CMP, CBC ####[address] Creatinine [Mass/volume] in Serum or PlasmaOrdered By: Romel Ryan on 03-13-2024 Creatinine [Mass/Vol] 0.94 mg/dL Normal 0.70-1.30 [facility] Comment on above: Performed By: #### C 3, C4, CH50 ####[facility] ,#### ESR, ADDONUAPLUS, CMP, CBC ####[address] [address] [place] Dipstick and Microscopicon 0 03-13-2024 Appearance (U) Clear Normal Clear [facility] Comment on above: Order Comment: Name Collection Type:: Clean-Voided Midstream Performed By: #### C 3, C4, CH50 ####[facility] ,#### ESR, ADDONUAPLUS, CMP, CBC ####[address] Bacteria,Urine None Seen Normal None Seen [facility] Comment on above: Order Comment: Name Collection Type:: Clean-Voided Midstream Performed By: #### C 3, C4, CH50 ####[facility] ,#### ESR, ADDONUAPLUS, CMP, CBC ####[address] [address] [facility] Bilirubin,Urine Negative Normal Negative [facility] Comment on above: Order Comment: Name Collection Type:: Clean-Voided Midstream Performed By: #### C 3, C4, CH50 ####[facility] ,#### ESR, ADDONUAPLUS, CMP, CBC ####[address] [address] [facility] Glucose Ql (U) Normal Normal Normal [facility] [facility] Comment on above: Order Comment: Name Collection Type:: Clean-Voided Midstream Performed By: #### C 3, C4, CH50 ####[facility] ,#### ESR, ADDONUAPLUS, CMP, CBC ####[address] [address] [facility] Hyaline Casts,Urine 0-8 Normal 0-8 [facility] Comment on above: Order Comment: Name Collection Type:: Clean-Voided Midstream Result Comment: PERF ORMED BY: [facility] [place] [address] [place] [address] PATHOLOGIST PORCELAIN TECHNICIAN OLMAN ALBARRAN M.D. Performed By: #### C 3, C4, CH50 ####[facility] ,#### ESR, ADDONUAPLUS, CMP, CBC ####[address] Ketones Ql (U) Trace High Negative [facility] Comment on above: Order Comment: Name Collection Type:: Clean-Voided Midstream Performed By: #### C 3, C4, CH50 ####[facility] ,#### ESR, ADDONUAPLUS, CMP, CBC ####[address] Leukocyte esterase Test strip Ql (U) 1+ High Negative [facility] Comment on above: Order Comment: Name Collection Type:: Clean-Voided Midstream Performed By: #### C 3, C4, CH50 ####[facility] ,#### ESR, ADDONUAPLUS, CMP, CBC ####[address] Nitrite,Urine Negative Normal Negative [facility] Comment on above: Order Comment: Name Collection Type:: Clean-Voided Midstream Performed By: #### C 3, C4, CH50 ####[facility] ,#### ESR, ADDONUAPLUS, CMP, CBC ####[address] Occult Blood,Urine Negative Normal Negative [facility] Comment on above: Order Comment: Name Collection Type:: Clean-Voided Midstream Performed By: #### C 3, C4, CH50 ####[facility] ,#### ESR, ADDONUAPLUS, CMP, CBC ####[address] Protein,Urine Negative Normal Negative [facility] Comment on above: Order Comment: Name Collection Type:: Clean-Voided Midstream Performed By: #### C 3, C4, CH50 ####[facility] ,#### ESR, ADDONUAPLUS, CMP, CBC ####[address] RBC,Urine 1-2 Normal 0-4 [facility] Comment on above: Order Comment: Name Collection Type:: Clean-Voided Midstream Performed By: #### C 3, C4, CH50 ####[facility] ,#### ESR, ADDONUAPLUS, CMP, CBC ####[address] Specificy [place],Urine 1.024 Normal 1.001-1.03 0 [facility] Comment on above: Order Comment: Name Collection Type:: Clean-Voided Midstream Performed By: #### C 3, C4, CH50 ####[facility] ,#### ESR, ADDONUAPLUS, CMP, CBC ####[address] Squamous Epithelial Cell,Urine None Seen Normal 0-2 [facility] Comment on above: Order Comment: Name Collection Type:: Clean-Voided Midstream Performed By: #### C 3, C4, CH50 ####[facility] ,#### ESR, ADDONUAPLUS, CMP, CBC ####[address] Urobilinogen,Urine Normal Normal Normal [facility] Comment on above: Order Comment: Name Collection Type:: Clean-Voided Midstream Performed By: #### C 3, C4, CH50 ####[facility] ,#### ESR, ADDONUAPLUS, CMP, CBC ####[address] WBC LM.HPF (Urine sed) [#/Area] 0 /[HPF] Normal 0-4 [facility] Comment on above: Order Comment: Name Collection Type:: Clean-Voided Midstream Performed By: #### C 3, C4, CH50 ####[facility] ,#### ESR, ADDONUAPLUS, CMP, CBC ####[address] Erythrocyte Sedimentation Ra bruno 03-13-2024 ESR (Bld) [Velocity] 29 mm/h High 0-19 [facility] Comment on above: Result Comment: PERF ORMED BY: [facility] [place] [address] [place] [address] PATHOLOGIST PORCELAIN TECHNICIAN OLMAN ALBARRAN M.D. Performed By: #### C 3, C4, CH50 ####[facility] ,#### ESR, ADDONUAPLUS, CMP, CBC ####[address] Erythrocyte distribution wid th [Ratio] by Automated countOrdered By: Romel Dvais on 03-13-2024 Erythrocyte distribution width (RBC) [Ratio] 14.8 % Normal 12.0-14.8 [facility] Comment on above: Performed By: #### C 3, C4, CH50 ####[facility] ,#### ESR, ADDONUAPLUS, CMP, CBC ####[address] Erythrocyte sedimentation ra te by Photometric methodOrdered By: Romel Davis on 03-13-2024 ESR Photometric method (Bld) [Velocity] 29 mm/hr High 0-19 [facility] Erythrocytes [#/volume] in B lood by Automated countOrdered By: Romel Davis on 03-13-2024 RBC (Bld) [#/Vol] 4.14 10*6/uL Normal 3.90-5.60 [facility] Comment on above: Performed By: #### C 3, C4, CH50 ####[facility] ,#### ESR, ADDONUAPLUS, CMP, CBC ####[address] Glucose [Mass/volume] in Ser um or PlasmaOrdered By: Romel Davis on 03-13-2024 Glucose [Mass/Vol] 124 mg/dL High 70-100 [facility] Comment on above: ADA recommended refe rence rangeRandom Glucose Reference Range is dependent on time and content of last meal. Glucose of more than 200 mg/dL in a nonstressed, ambulatory subject supports the diagnosis of Diabetes Mellitus. Result Comment: [place] om Glucose Reference Range is dependent on time and content of last meal. Glucose of more than 200 mg/dL in a nonstressed, ambulatory subject supports the diagnosis of Diabetes Mellitus. ADA recommended reference range Performed By: #### C 3, C4, CH50 ####[facility] ,#### ESR, ADDONUAPLUS, CMP, CBC ####[address] Hematocrit [Volume Fraction] of Blood by Automated countOrdered By: Romelsera Davis on 03-13-2024 Hematocrit (Bld) [Volume fraction] 36.6 % Low 38.8-50.0 [facility] Comment on above: Performed By: #### C 3, C4, CH50 ####[facility] ,#### ESR, ADDONUAPLUS, CMP, CBC ####[place] [id number] [facility] Hemoglobin [Mass/volume] in BloodOrdered By: Romelsera Davis on 03-13-2024 Hemoglobin (Bld) [Mass/Vol] 12.4 g/dL Low 13.0-17.0 [facility] Comment on above: Performed By: #### C 3, C4, CH50 ####[facility] ,#### ESR, ADDONUAPLUS, CMP, CBC ####[address] [place] [address] [place] Ketones Auto test strip (U) [Mass/Vol]Ordered By: Romel Mnedezrow on 03-13-2024 Ketones (U) [Mass/Vol] Trace High Negative [facility] - UrinalysisOrder ed By: Romel Mendezrow on 03-13-2024 Hyaline casts LM Ql (Urine sed) 0-8 [LPF] 0-8 [facility] Leukocytes [#/volume] correc nat for nucleated erythrocytes in Blood by Automated counOrdered By: Romel Mendezrow on 03-13-2024 WBC corrected for nucl RBC Auto (Bld) [#/Vol] 6.5 10*3/uL 4.1-10.5 [facility] Leukocytes [#/volume] in Blo od by Automated countOrdered By: Romel Ryan on 03-13-2024 WBC (Bld) [#/Vol] 6.5 10*3/uL Normal 4.1-10.5 [facility] Comment on above: Performed By: #### C 3, C4, CH50 ####[facility] ,#### ESR, ADDONUAPLUS, CMP, CBC ####[place] [id number] Lymphocytes [#/volume] in Bl ood by Automated countOrdered By: Romel Ryan on 03-13-2024 Lymphocytes (Bld) [#/Vol] 0.8 10*3/uL Low 1.00-4.8 [facility] Comment on above: Performed By: #### C 3, C4, CH50 ####[facility] ,#### ESR, ADDONUAPLUS, CMP, CBC ####[address] Lymphocytes/100 leukocytes i n Blood by Automated countOrdered By: Romelsera Davis on 03-13-2024 Lymphocytes/100 WBC (Bld) 12.1 % Normal . [facility] Comment on above: Performed By: #### C 3, C4, CH50 ####[facility] ,#### ESR, ADDONUAPLUS, CMP, CBC ####[address] MCH [Entitic mass] by Automa nat countOrdered By: Romel Mendezrow on 03-13-2024 MCH (RBC) [Entitic mass] 30.0 pg Normal 27.5-35.2 [facility] Comment on above: Performed By: #### C 3, C4, CH50 ####[facility] ,#### ESR, ADDONUAPLUS, CMP, CBC ####[address] MCHC Auto (RBC) [Mass/Vol]Or dered By: Romel Davis on 03-13-2024 MCHC (RBC) [Mass/Vol] 33.9 g/dL 32.5-35.6 [facility] MCV [Entitic volume] by Auto mated countOrdered By: Romel Davis on 03-13-2024 MCV (RBC) [Entitic vol] 88.3 fL Normal 83.5-101 [facility] Comment on above: Performed By: #### C 3, C4, CH50 ####[facility] ,#### ESR, ADDONUAPLUS, CMP, CBC ####[address] Neutrophils [#/volume] in Bl ood by Automated countOrdered By: Romel Davis on 03-13-2024 Neutrophils (Bld) [#/Vol] 4.9 10*3/uL Normal 1.8-7.7 [facility] Comment on above: Performed By: #### C 3, C4, CH50 ####[facility] ,#### ESR, ADDONUAPLUS, CMP, CBC ####[address] Nitrite Test strip Ql (U)Ord ered By: Romel Davis on 03-13-2024 Nitrite Ql (U) Negative Negative [facility] No Panel InformationOrdered By: Romel Davis on 03-13-2024 Estimated GFR (CKD-EPI) > 60.0 mL/Min [facility] Creatinine Clearance (Chem N/A [facility] Total Complement (CH50) >60 U/mL >41 [facility] Comment on above: Age Male Female 3 [...] to determine out of range values.Performed at: [facility] [place] [id number] Director: Richy Ardon PhD, Phone: [phone] Nucleated erythrocytes [Pres ence] in Blood by Automated countOrdered By: Romel Davis on 03-13-2024 Nucleated RBC Auto Ql (Bld) 0.1 /100{WBC} 0-0.5 [facility] Platelet mean volume [Entiti c volume] in Blood by Automated countOrdered By: Romel Davis on 03-13-2024 Platelet mean volume (Bld) [Entitic vol] 8.0 fL Normal 6.6-10.1 [facility] Comment on above: Performed By: #### C 3, C4, CH50 ####[facility] ,#### ESR, ADDONUAPLUS, CMP, CBC ####[facility] [address] Platelets [#/volume] in Bloo d by Automated countOrdered By: Romel Davis on 03-13-2024 Platelets (Bld) [#/Vol] 258 10*3/uL Normal 150-450 [facility] Comment on above: Performed By: #### C 3, C4, CH50 ####[facility] ,#### ESR, ADDONUAPLUS, CMP, CBC ####[facility] [address] [place] [id number] [place] Potassium [Moles/volume] in Serum or PlasmaOrdered By: Romel Davis on 03-13-2024 Potassium [Moles/Vol] 4.3 mmol/L Normal 3.5-5.1 [facility] Comment on above: Performed By: #### C 3, C4, CH50 ####[facility] ,#### ESR, ADDONUAPLUS, CMP, CBC ####[address] Protein Auto test strip (U) [Mass/Vol]Ordered By: Romel Davis on 03-13-2024 Protein (U) [Mass/Vol] Negative Negative [facility] Protein [Mass/volume] in Ser um or PlasmaOrdered By: Romel Davis on 03-13-2024 Protein [Mass/Vol] 6.0 g/dL Low 6.4-8.9 [facility] Comment on above: Performed By: #### C 3, C4, CH50 ####[facility] ,#### ESR, ADDONUAPLUS, CMP, CBC ####[address] Serum globulin measurement b y calculation (mass/volume)Ordered By: Romel Davis on 03-13-2024 Globulin (S) [Mass/Vol] 2.3 g/dL [facility] Comment on above: Performed By: #### C 3, C4, CH50 ####[facility] ,#### ESR, ADDONUAPLUS, CMP, CBC ####[address] Serum or plasma albumin/glob ulin mass ratioOrdered By: Romel Mendezrow on 03-13-2024 Albumin/Globulin [Mass ratio] 1.6 {ratio} [facility] Comment on above: Performed By: #### C 3, C4, CH50 ####[facility] ,#### ESR, ADDONUAPLUS, CMP, CBC ####[address] Serum or plasma anion gap de terminationOrdered By: Romel Davis on 03-13-2024 Anion gap [Moles/Vol] 11.3 mmol/L Normal 6.0-15.0 [facility] Comment on above: Performed By: #### C 3, C4, CH50 ####[facility] ,#### ESR, ADDONUAPLUS, CMP, CBC ####[address] Serum or plasma complement C 3 measurement (mass/volume)Ordered By: Romel Davis on 03-13-2024 Complement C3 [Mass/Vol] 153 mg/dL 82-167 [facility] Comment on above: Performed at: [address] [id number] Director: Richy Ardon PhD, Phone: [phone] Serum or plasma complement C 4 measurement (mass/volume)Ordered By: Romel Davis on 03-13-2024 Complement C4 [Mass/Vol] 24 mg/dL 12-38 [facility] Sodium [Moles/volume] in Ser um or PlasmaOrdered By: Romel Davis on 03-13-2024 Sodium [Moles/Vol] 137 mmol/L Normal 136-145 [facility] Comment on above: Performed By: #### C 3, C4, CH50 ####[facility] ,#### ESR, ADDONUAPLUS, CMP, CBC ####[address] Specific gravity Auto test s trip (U) [Rel density]Ordered By: Romel Davis on 03-13-2024 Specific gravity (U) [Rel density] 1.024 1.001-1.03 0 [facility] Squamous epithelial cells de tection in urine sediment by light microscopyOrdered By: Romel Davis on 03-13-2024 Epithelial cells.squamous LM Ql (Urine sed) None seen [HPF] 0-2 [facility] Urea nitrogen [Mass/volume] in Serum or PlasmaOrdered By: Romel Davis on 03-13-2024 Urea nitrogen [Mass/Vol] 26 mg/dL High 7-25 [facility] Comment on above: Performed By: #### C 3, C4, CH50 ####[facility] ,#### ESR, ADDONUAPLUS, CMP, CBC ####[address] Urine bacteria detection by automated methodOrdered By: Romel Davis on 03-13-2024 Bacteria Auto Ql (U) None seen None Seen [facility] Urine clarity by refractomet ry automatedOrdered By: Romel Davis on 03-13-2024 Clarity Refractometry automated (U) Clear Clear [facility] Urine glucose measurement by automated test strip (mass/volume)Ordered By: Romel Davis on 03-13-2024 Glucose Auto test strip (U) [Mass/Vol] Normal mg/dL Normal [facility] Urine hemoglobin detection b y automated test stripOrdered By: Romel Davis on 03-13-2024 Hemoglobin Auto test strip Ql (U) Negative Negative [facility] Urine leukocyte esterase det ection by automated test stripOrdered By: Romel Davis on 03-13-2024 Leukocyte esterase Auto test strip Ql (U) 1+ High Negative [facility] Urine pH measurement by auto mated test stripOrdered By: Romel Davis on 03-13-2024 pH (U) 7.0 [pH] Normal 5.0-9.0 [facility] Comment on above: Order Comment: Name Collection Type:: Clean-Voided Midstream Performed By: #### C 3, C4, CH50 ####[facility] ,#### ESR, ADDONUAPLUS, CMP, CBC ####[address] Urobilinogen Auto test strip (U) [Mass/Vol]Ordered By: Romel Davis on 03-13-2024 Urobilinogen (U) [Mass/Vol] Normal mg/dL Normal [facility] MR cervical spine wo conon 0 03-08-2024 MR cervical spine wo con [facility] [place] [address] MRI Report Signed Patient: Valentin Torre MR#: [id number] 29 : 1955 Acct:[id number] Age/Sex: 68 / M ADM Date: 03/08/24 Loc: [facility] Room: Type: [facility] CLI Attending Dr: Mckenzie Khalil MD Copies to: [...] Yaneth Bill M.D.03/08/2024 12:27 PM Dictation Location: [place] [address] Transcribed By: [facility] 03/08/24 1227 Dictated By: Yaneth Bill II, MD 03/08/24 1221 Signed By: 03/08/24 1227 Normal [facility] Operative Reporton Operative Report [id number]#1.00TIFF Normal [facility] RAD - MISCon 02-16-2024 RAD - MISC [id number]#1.00TIFF Normal [facility] ECG 12-Leadon 02-03-2024 ECG 12-Lead [id number]#1.00TIFF Normal [facility] Lab Reportson 02-03-2024 Lab Reports [id number]#1.00TIFF Normal [facility] Lab Reportson 02-02-2024 Lab Reports [id number]#1.00TIFF Normal [facility] ED Note-Physicianon 01-30-20 24 ED Note-Physician [id number]#1.00TIFF Normal [facility] Lab Reportson 01-30-2024 Lab Reports [id number]#1.00TIFF Normal [facility] Calculus Analysison 01-26-20 24 Calcium oxalate dihydrate Infrared spectroscopy (Stone) [Mass fraction] 10 % Invalid Interpretation Code [facility] Comment on above: Performed By: #### 1 [id number] ####[facility] [address] [place] [address] Calcium oxalate monohydrate (Stone) [Mass fraction] 90 % Invalid Interpretation Code [facility] Comment on above: Performed By: #### 1 [id number] ####[facility] [address] [place] [address] Color (Stone) Alexander Invalid Interpretation Code [facility] Comment on above: Performed By: #### 1 [id number] ####[facility] [address] [place] [address] Composition Comment Invalid Interpretation Code [facility] Comment on above: Result Comment: Perc entage (Represents the % composition) Performed By: #### 1 [id number] ####[facility] [address] [place] [address] Disclaimer: Comment Invalid Interpretation Code [facility] Comment on above: Result Comment: This test was developed and its performance characteristics determined by [employer]. It has not been cleared or approved by the Food and Drug Administration. Performed at: [address] [id number] Samir De Santiago Performed By: #### 1 [id number] ####[facility] [address] [place] [address] Laboratory comment Aj (Report) Comment Invalid Interpretation Code [facility] Comment on above: Result Comment: Phys anya questions regarding Calculi Analysis contact [facility] at: [phone]. Performed By: #### 1 [id number] ####[facility] [address] [place] [address] Please Note: Comment Invalid Interpretation Code [facility] Comment on above: Result Comment: Calc yovani report will follow via computer, mail or oracle fusion middleware architect delivery. Performed By: #### 1 [id number] ####[place] [address] [place] [address] Size (Stone) [Entitic vol] 4x3 Invalid Interpretation Code [facility] Comment on above: Result Comment: Sing le piece received. Performed By: #### 1 [id number] ####[place] [address] [place] [address] Specimen source subject Nom Comment Invalid Interpretation Code [facility] Comment on above: Result Comment: Not provided Performed By: #### 1 [id number] ####[facility] [address] [place] [address] Stone Photo Comment Invalid Interpretation Code [facility] Comment on above: Result Comment: Phot ograph will follow under a separate cover Performed By: #### 1 [id number] ####[place] [address] [place] [address] Weight (Stone) 25 mg Invalid Interpretation Code [facility] Comment on above: Performed By: #### 1 [id number] ####[place] [address] [place] [address] Consent for Procedure/Surger yon 01-20-2024 Consent for Procedure/Surgery [id number]#1.00TIFF Normal [facility] RAD - CT Reporton 01-20-2024 RAD - CT Report [id number]#1.00TIFF Normal [facility] Screenson 01-19-2024 Screens [id number]#1.00TIFF [facility] Ambulatory Visit Summaryon 0 01-18-2024 Ambulatory Visit [...] Zac MUNIZ MD Where: [facility] Ambulatory Visit Summary VALENTIN TORRE :1955 Visit [...] Zac MUNIZ MD Where: [facility] Patient Educationon 01-18-20 24 Patient Education Nephrology [...] these instructions at home: Medicines ? Take mdpn-awg-iobjcso and prescription medicines only as told by [...] care p (more content not included)... Normal [facility] Urology Office/Clinic Noteon 01-18-2024 Urology Office/Clinic Note Chief Complaint 2 week follow up to ER visit w/ [facility] HPI Staff 2 wk f/u to ER visit w/ SAM. Last seen by Dr. Muniz 09/19/23. Previous dx: kidney stones, hx of kidney stones. *Started on Effer-K as last OV. Electrolyte panel done 10/20/23 - results given over the phone. [facility] ER visit 01/02/24 c/o abdominal pain. Was given Levofloxacin 500mg x5 days due to WBC 16.9. Also given Flomax #10 and pain medication. Found to have R ureteral stone. CT AP wo con 01/03/24 [facility]. 01/03/24 - BUN 21, Cr 1.14, eGFR [...] Hydronephrosis with renal and ureteral calculous obstruction) [facility] ED 01/02/[address] to [address] AP wo con 01/03/24 [facility] - L renal hypodensities suggesting cysts. Bilat renal stones. [employer] 5 mm. Mild R hydroureteronephrosis w/periureteral stranding secondary to a distal ureteral stone w/in 2-3 cm of UVJ measuring 4 mm. 01/03/24 - BUN 21. Cr 1.14. eGFR >60. KUB 01/11/24 [facility] - Kidneys are partially obscured, R>L. 3 [...] Electrolyte panel 10/20/23 - wnl. KUB 01/11/24 [facility] - Kidneys are partially obscured, R>L. Group [...] URL [facility] [address], [place] [address]- Additional Instructions: schedule L ESWL Patient Education Lithotripsy, Care After Lithotripsy I, Teena Nazario (more content not included)... Normal [facility] Comment on above: Result Comment: Elec tronically Signed By: Zac MUNIZ MD\.br\Date and Time Signed: 01/18/24 09:36 EST\.br\Electronically Co-Signed By: Teena Stanley\.br\Date and Time Co-Signed: 01/18/24 09:35 EST [facility] 01-12-2024 Lab Reports [id number]#1.00TIFF [facility] RAD - MISCon 01-12-2024 RAD - MISC [id number]#1.00TIFF [facility] Carbon dioxide, total [Moles /volume] in Serum or PlasmaOrdered By: Zac Muniz on 01-11-2024 CO2 [Moles/Vol] 22.4 mmol/L Normal 21.0-31.0 [facility] Comment on above: Performed By: #### C H50, C3, C4 #### [facility] , #### ADDONUAPLUS, CMP, ESR, CBC #### [facility] [address] Chloride [Moles/volume] in S ace or PlasmaOrdered By: Zac Muniz on 01-11-2024 Chloride [Moles/Vol] 104 mmol/L Normal 98-107 [facility] Comment on above: Performed By: #### C H50, C3, C4 #### [facility] , #### ADDONUAPLUS, CMP, ESR, CBC #### [facility] [address] MR lumbar spine wo/w conon 0 01-11-2024 MR lumbar spine wo/w con [facility] [address] [place] [address] [place] [address] MRI Report Signed Patient: Valentin Torre MR#: [id number] 29 : 1955 Acct:[id number] Age/Sex: 68 / M ADM Date: 01/10/24 Loc: MR Room: Type: [facility] Attending Dr: Мария DAUGHERTY Copies to: [...] Yaneth Bill M.D.01/11/2024 12:50 PM Dictation Location: [place] [address] Transcribed By: [facility] 01/11/24 1250 Dictated By: Yaneth Bill II, MD 01/11/24 1244 Signed By: 01/11/24 1250 Normal [facility] Potassium [Moles/volume] in Serum or PlasmaOrdered By: Zac Muniz on 01-11-2024 Potassium [Moles/Vol] 4.4 mmol/L Normal 3.5-5.1 [facility] Comment on above: Performed By: #### C H50, C3, C4 #### [facility] , #### ADDONUAPLUS, CMP, ESR, CBC #### [facility] [address] [place] [address] Serum or plasma anion gap de terminationOrdered By: Zac Muniz on 01-11-2024 Anion gap [Moles/Vol] 13.0 mmol/L Normal 6.0-15.0 [facility] Comment on above: Result Comment: PERF ORMED BY: [place] [address] PATHOLOGIST PORCELAIN TECHNICIAN OLMAN ALBARRAN M.D. Performed By: #### C H50, C3, C4 #### [facility] , #### ADDONUAPLUS, CMP, ESR, CBC #### [facility] [address] [place] [address] Sodium [Moles/volume] in Ser um or PlasmaOrdered By: Zac Muniz on 01-11-2024 Sodium [Moles/Vol] 135 mmol/L Low 136-145 [facility] Comment on above: Performed By: #### C H50, C3, C4 #### [facility] , #### ADDONUAPLUS, CMP, ESR, CBC #### [place] [address] [facility] XR abdomen 1Von 01-11-2024 XR abdomen 1V [facility] [address] [place] [address] [place] [address] XRay Report Signed Patient: Valentin Torre MR#: [id number] 29 : 1955 Acct:[id number] Age/Sex: 68 / M ADM Date: 01/11/24 Loc: XD Room: Type: [facility] Attending Dr: Zac Muniz MD Copies to: [...] Christine Alexandra M.D.01/11/2024 1:27 PM Dictation Location: [place] [address] Transcribed By: [facility] 01/11/24 1327 Dictated By: Christine Alexandra MD 01/11/24 1321 Signed By: 01/11/24 1327 Normal [facility] Alanine aminotransferase [En zymatic activity/volume] in Serum or PlasmaOrdered By: Edenilson Reinoso on 01-03-2024 ALT [Catalytic activity/Vol] 43 U/L Normal 7-52 [facility] Comment on above: Performed By: #### C H50, C3, C4 #### [facility] , #### ADDONUAPLUS, CMP, ESR, CBC #### [address] Albumin [Mass/volume] in Ser um or Plasma by Bromocresol green (BCG) dye binding methoOrdered By: Edenilson Reinoso on 01-03-2024 Albumin BCG dye [Mass/Vol] 4.6 g/dL 3.5-5.7 [facility] Alkaline phosphatase [Enzyma tic activity/volume] in Serum or PlasmaOrdered By: Edenilson Reinoso on 01-03-2024 ALP [Catalytic activity/Vol] 78 U/L Normal 34-104 [facility] Comment on above: Performed By: #### C H50, C3, C4 #### [facility] , #### ADDONUAPLUS, CMP, ESR, CBC #### [address] Aspartate aminotransferase [ Enzymatic activity/volume] in Serum or PlasmaOrdered By: Edenilson Reinoso on 01-03-2024 AST [Catalytic activity/Vol] 28 U/L Normal 13-39 [facility] Comment on above: Performed By: #### C H50, C3, C4 #### [facility] , #### ADDONUAPLUS, CMP, ESR, CBC #### [address] Automated basophil %Ordered By: Edenilson Reinoso on 01-03-2024 Basophils/100 WBC (Bld) 0.2 % Normal . [facility] Comment on above: Performed By: #### C H50, C3, C4 #### [facility] , #### ADDONUAPLUS, CMP, ESR, CBC #### [facility] [address] [place] [address] Automated basophil countOrde red By: Edenilson Reinoso on 01-03-2024 Basophils (Bld) [#/Vol] 0.0 10*3/uL Normal 0.0-0.2 [facility] Comment on above: Result Comment: PERF ORMED BY: [place] [address] PATHOLOGIST [employer] TECHNICIAN OLMAN ALBARRAN M.D. Performed By: #### C H50, C3, C4 #### [facility] , #### ADDONUAPLUS, CMP, ESR, CBC #### [facility] [address] [place] [address] Automated blood monocyte cou ntOrdered By: Edenilson Reinoso on 01-03-2024 Monocytes (Bld) [#/Vol] 1.1 10*3/uL High 0.0-0.8 [facility] Comment on above: Performed By: #### C H50, C3, C4 #### [facility] , #### ADDONUAPLUS, CMP, ESR, CBC #### [address] Automated eosinophil %Ordere d By: Edenilson Reinoso on 01-03-2024 Eosinophils/100 WBC (Bld) 0.3 % Normal . [facility] Comment on above: Performed By: #### C H50, C3, C4 #### [facility] , #### ADDONUAPLUS, CMP, ESR, CBC #### [address] Automated eosinophil countOr dered By: Edenilson Reinoso on 01-03-2024 Eosinophils (Bld) [#/Vol] 0.0 10*3/uL Normal 0.0-0.45 [facility] Comment on above: Performed By: #### C H50, C3, C4 #### [facility] , #### ADDONUAPLUS, CMP, ESR, CBC #### [facility] [address] [place] [address] Automated erythrocytes count in urine sediment (number/area)Ordered By: Edenilson Reinoso on 01-03-2024 RBC Auto (Urine sed) [#/Area] 3-4 [HPF] 0-4 [facility] Automated leukocytes count i n urine sediment (number/area)Ordered By: Edenilson Reinoso on 01-03-2024 WBC Auto (Urine sed) [#/Area] 3-4 [HPF] 0-4 [facility] Automated monocyte %Ordered By: Edenilson Reinoso on 01-03-2024 Monocytes/100 WBC (Bld) 6.7 % Normal . [facility] Comment on above: Performed By: #### C H50, C3, C4 #### [facility] , #### ADDONUAPLUS, CMP, ESR, CBC #### [facility] [address] Automated neutrophil %Ordere d By: Edenilson Reinoso on 01-03-2024 Neutrophils/100 WBC (Bld) 88.0 % Normal . [facility] Comment on above: Performed By: #### C H50, C3, C4 #### [facility] , #### ADDONUAPLUS, CMP, ESR, CBC #### [facility] [address] Automated urine color determ inationOrdered By: Edenilson Reinoso on 01-03-2024 Color (U) Dark yellow Critically abnormal Yellow [facility] Comment on above: Order Comment: Name Collection Type:: Clean-Voided Midstream Performed By: #### A DDONUAPLUS ####[facility] [id number] Bilirubin Test strip Ql (U)O rdered By: Edenilson Reinoso on 01-03-2024 Bilirubin Ql (U) Negative Negative [facility] Bilirubin.total [Mass/volume ] in Serum or PlasmaOrdered By: Edenilson Reinoso on 01-03-2024 Bilirubin [Mass/Vol] 0.6 mg/dL Normal 0.3-1.0 [facility] Comment on above: Performed By: #### C H50, C3, C4 #### [facility] , #### ADDONUAPLUS, CMP, ESR, CBC #### [facility] [address] abdomen pelvis wo conon 0 01-03-2024 CT abdomen pelvis wo con [facility] [address] [place] [address] CT Scan Report Signed Patient: Valentin Torre MR#: [id number] 29 : 1955 Acct:[id number] Age/Sex: 68 / M ADM Date: 01/02/24 [...] Christine Alexandra M.D.01/03/2024 9:53 AM Dictation Location: [place] [address] Transcribed By: [facility] 01/03/24952 Dictated By: Christine Alexandra MD 01/03/2447 Signed By: 01/03/24952 Normal [facility] Calcium [Mass/volume] in Ser um or PlasmaOrdered By: Edenilson Reinoso on 01-03-2024 Calcium [Mass/Vol] 9.3 mg/dL Normal 8.6-10.3 [facility] Comment on above: Performed By: #### C H50, C3, C4 #### [facility] , #### ADDONUAPLUS, CMP, ESR, CBC #### [facility] [address] [place] [address] Carbon dioxide, total [Moles /volume] in Serum or PlasmaOrdered By: Edenilson Reinoso on 01-03-2024 CO2 [Moles/Vol] 20.7 mmol/L Low 21.0-31.0 [facility] Comment on above: Performed By: #### C H50, C3, C4 #### [facility] , #### ADDONUAPLUS, CMP, ESR, CBC #### [facility] [address] [place] [address] [place] Chloride [Moles/volume] in S ace or PlasmaOrdered By: Edenilson Reinoso on 01-03-2024 Chloride [Moles/Vol] 106 mmol/L Normal 98-107 [facility] Comment on above: Performed By: #### C H50, C3, C4 #### [facility] , #### ADDONUAPLUS, CMP, ESR, CBC #### [facility] [address] [place] [address] [place] Complete Blood Count Auto Di ffon 01-03-2024 Mean Corpuscular HGB Conc 33.7 g/dL Normal 32.5-35.6 [facility] Comment on above: Performed By: #### C H50, C3, C4 #### [facility] , #### ADDONUAPLUS, CMP, ESR, CBC #### [address] Monocytes/100 WBC (Bld) 20.70 % High 0.00-20.00 [facility] Comment on above: Result Comment: For adults in ED, MDW > 20.0 may be associated with a higher risk of sepsis during the first 12 hrs of hospital admission Performed By: #### C H50, C3, C4 #### [facility] , #### ADDONUAPLUS, CMP, ESR, CBC #### [address] NRBC% 0.3 /100{WBC} Normal 0-0.5 [facility] Comment on above: Performed By: #### C H50, C3, C4 #### [facility] , #### ADDONUAPLUS, CMP, ESR, CBC #### [address] Comprehensive Metabolic Pane vivek 01-03-2024 Albumin [Mass/Vol] 4.6 g/dL Normal 3.5-5.7 [facility] Comment on above: Performed By: #### C H50, C3, C4 #### [facility] , #### ADDONUAPLUS, CMP, ESR, CBC #### [address] Creatinine Clr Calc Pharmacy 73.17 Normal [facility] Comment on above: Result Comment: PERF ORMED BY: [place] [address] PATHOLOGIST [employer] TECHNICIAN OLMAN ALBARRAN M.D. Performed By: #### C H50, C3, C4 #### [facility] , #### ADDONUAPLUS, CMP, ESR, CBC #### [address] GFR/1.73 sq M.predicted MDRD (S/P/Bld) [Vol rate/Area] mL/min/{1.73_m2} Normal [facility] Comment on above: Performed By: #### C H50, C3, C4 #### [facility] , #### ADDONUAPLUS, CMP, ESR, CBC #### [facility] [address] Creatinine [Mass/volume] in Serum or PlasmaOrdered By: Edenilson Reinoso on 01-03-2024 Creatinine [Mass/Vol] 1.14 mg/dL Normal 0.70-1.30 [facility] Comment on above: Performed By: #### C H50, C3, C4 #### [facility] , #### ADDONUAPLUS, CMP, ESR, CBC #### [address] Dipstick and Microscopicon 0 01-03-2024 Appearance (U) Cloudy Critically abnormal Clear [facility] Comment on above: Order Comment: Name Collection Type:: Clean-Voided Midstream Performed By: #### A DDONUAPLUS ####[address] Bacteria,Urine None Seen Normal None Seen [facility] Comment on above: Order Comment: Name Collection Type:: Clean-Voided Midstream Performed By: #### A DDONUAPLUS ####[address] Bilirubin,Urine Negative Normal Negative [facility] Comment on above: Order Comment: Name Collection Type:: Clean-Voided Midstream Performed By: #### A DDONUAPLUS ####[place] [id number] [facility] Glucose Ql (U) Normal Normal Normal [facility] Comment on above: Order Comment: Name Collection Type:: Clean-Voided Midstream Performed By: #### A DDONUAPLUS ####[place] [id number] [place] Hyaline Casts,Urine 0-8 Normal 0-8 [facility] Comment on above: Order Comment: Name Collection Type:: Clean-Voided Midstream Result Comment: PERF ORMED BY: [facility] [address] [place] [id number] PATHOLOGIST [employer] TECHNICIAN OLMAN ALBARRAN M.D. Performed By: #### A DDONUAPLUS ####[address] [address] [facility] Ketones Ql (U) Trace High Negative [facility] Comment on above: Order Comment: Name Collection Type:: Clean-Voided Midstream Performed By: #### A DDONUAPLUS ####[address] [address] [facility] Leukocyte esterase Test strip Ql (U) Negative Normal Negative [facility] Comment on above: Order Comment: Name Collection Type:: Clean-Voided Midstream Performed By: #### A DDONUAPLUS ####[address] [address] [place] Nitrite,Urine Negative Normal Negative [facility] Comment on above: Order Comment: Name Collection Type:: Clean-Voided Midstream Performed By: #### A DDONUAPLUS ####[address] [address] [place] Occult Blood,Urine Negative Normal Negative [facility] Comment on above: Order Comment: Name Collection Type:: Clean-Voided Midstream Result Comment: PERF ORMED BY: [facility] [address] [place] [id number] PATHOLOGIST [employer] TECHNICIAN OLMAN ALBARRAN M.D. Performed By: #### A DDONUAPLUS ####[address] [address] [place] Protein,Urine Trace High Negative [facility] Comment on above: Order Comment: Name Collection Type:: Clean-Voided Midstream Performed By: #### A DDONUAPLUS ####[address] [address] [place] RBC,Urine 3-4 Normal 0-4 [facility] Comment on above: Order Comment: Name Collection Type:: Clean-Voided Midstream Performed By: #### A DDONUAPLUS ####[address] Specificy [place],Urine 1.034 High 1.001-1.03 0 [facility] Comment on above: Order Comment: Name Collection Type:: Clean-Voided Midstream Performed By: #### A DDONUAPLUS ####[address] Squamous Epithelial Cell,Urine 0-1 Normal 0-2 [facility] Comment on above: Order Comment: Name Collection Type:: Clean-Voided Midstream Performed By: #### A DDONUAPLUS ####[address] Urobilinogen,Urine Normal Normal Normal [facility] Comment on above: Order Comment: Name Collection Type:: Clean-Voided Midstream Performed By: #### A DDONUAPLUS ####[address] WBC,Urine 3-4 Normal 0-4 [facility] Comment on above: Order Comment: Name Collection Type:: Clean-Voided Midstream Performed By: #### A DDONUAPLUS ####[address] Erythrocyte distribution wid th [Ratio] by Automated countOrdered By: Edenilson Reinoso on 01-03-2024 Erythrocyte distribution width (RBC) [Ratio] 14.7 % Normal 12.0-14.8 [facility] Comment on above: Performed By: #### C H50, C3, C4 #### [facility] , #### ADDONUAPLUS, CMP, ESR, CBC #### [address] Erythrocytes [#/volume] in B lood by Automated countOrdered By: Edenilson Reinoso on 01-03-2024 RBC (Bld) [#/Vol] 5.52 10*6/uL Normal 3.90-5.60 [facility] Comment on above: Performed By: #### C H50, C3, C4 #### [facility] , #### ADDONUAPLUS, CMP, ESR, CBC #### [facility] [address] [place] [address] Glucose [Mass/volume] in Ser um or PlasmaOrdered By: Edenilson Reinoso on 01-03-2024 Glucose [Mass/Vol] 148 mg/dL High 70-100 [facility] Comment on above: ADA recommended refe rence rangeRandom Glucose Reference Range is dependent on time and content of last meal. Glucose of more than 200 mg/dL in a nonstressed, ambulatory subject supports the diagnosis of Diabetes Mellitus. Result Comment: [place] om Glucose Reference Range is dependent on time and content of last meal. Glucose of more than 200 mg/dL in a nonstressed, ambulatory subject supports the diagnosis of Diabetes Mellitus. ADA recommended reference range Performed By: #### C H50, C3, C4 #### [facility] , #### ADDONUAPLUS, CMP, ESR, CBC #### [address] Hematocrit [Volume Fraction] of Blood by Automated countOrdered By: Edenilson Reinoso on 01-03-2024 Hematocrit (Bld) [Volume fraction] 49.3 % Normal 38.8-50.0 [facility] Comment on above: Performed By: #### C H50, C3, C4 #### [facility] , #### ADDONUAPLUS, CMP, ESR, CBC #### [address] Hemoglobin [Mass/volume] in BloodOrdered By: Edenilson Reinoso on 01-03-2024 Hemoglobin (Bld) [Mass/Vol] 16.6 g/dL Normal 13.0-17.0 [facility] Comment on above: Performed By: #### C H50, C3, C4 #### [facility] , #### ADDONUAPLUS, CMP, ESR, CBC #### [address] Ketones Auto test strip (U) [Mass/Vol]Ordered By: Edenilson Reinoso on 01-03-2024 Ketones (U) [Mass/Vol] Trace Negative [facility] - UrinalysisOrder ed By: Edenilson Reinoso on 01-03-2024 Hyaline casts LM Ql (Urine sed) 0-8 [LPF] 0-8 [facility] Leukocytes [#/volume] correc nat for nucleated erythrocytes in Blood by Automated counOrdered By: Edenilson Reinoso on 01-03-2024 WBC corrected for nucl RBC Auto (Bld) [#/Vol] 16.9 10*3/uL 4.1-10.5 [facility] Leukocytes [#/volume] in Blo od by Automated countOrdered By: Edenilson Reinoso on 01-03-2024 WBC (Bld) [#/Vol] 16.9 10*3/uL High 4.1-10.5 [facility] Comment on above: Performed By: #### C H50, C3, C4 #### [facility] , #### ADDONUAPLUS, CMP, ESR, CBC #### [facility] [address] [place] [address] [place] Lymphocytes [#/volume] in Bl ood by Automated countOrdered By: Edenilson Reinoso on 01-03-2024 Lymphocytes (Bld) [#/Vol] 0.8 10*3/uL Low 1.00-4.8 [facility] Comment on above: Performed By: #### C H50, C3, C4 #### [facility] , #### ADDONUAPLUS, CMP, ESR, CBC #### [facility] [address] [place] [address] [place] Lymphocytes/100 leukocytes i n Blood by Automated countOrdered By: Edenilson Reinoso on 01-03-2024 Lymphocytes/100 WBC (Bld) 4.8 % Normal . [facility] Comment on above: Performed By: #### C H50, C3, C4 #### [facility] , #### ADDONUAPLUS, CMP, ESR, CBC #### [facility] [address] [place] [address] MCH [Entitic mass] by Automa nat countOrdered By: Edenilson Reinoso on 01-03-2024 MCH (RBC) [Entitic mass] 30.1 pg Normal 27.5-35.2 [facility] Comment on above: Performed By: #### C H50, C3, C4 #### [facility] , #### ADDONUAPLUS, CMP, ESR, CBC #### [facility] [address] [place] [address] MCHC Auto (RBC) [Mass/Vol]Or dered By: Edenilson Reinoso on 01-03-2024 MCHC (RBC) [Mass/Vol] 33.7 g/dL 32.5-35.6 [facility] MCV [Entitic volume] by Auto mated countOrdered By: Edenilson Reinoso on 01-03-2024 MCV (RBC) [Entitic vol] 89.3 fL Normal 83.5-101 [facility] Comment on above: Performed By: #### C H50, C3, C4 #### [facility] , #### ADDONUAPLUS, CMP, ESR, CBC #### [facility] [address] [place] [address] Monocyte distribution width [Entitic volume] in Blood by AutomatedOrdered By: Edenilson Reinoso on 01-03-2024 Monocyte distribution width Auto (Bld) [Entitic vol] 20.70 % 0.00-20.00 [facility] Comment on above: For adults in ED, MD W > 20.0 may be associated with a higher risk of sepsis during the first 12 hrs of hospital admission Neutrophils [#/volume] in Bl ood by Automated countOrdered By: Edenilson Reinoso on 01-03-2024 Neutrophils (Bld) [#/Vol] 14.9 10*3/uL High 1.8-7.7 [facility] Comment on above: Performed By: #### C H50, C3, C4 #### [facility] , #### ADDONUAPLUS, CMP, ESR, CBC #### [facility] [address] [place] [address] [place] Nitrite Test strip Ql (U)Ord ered By: Edenilson Reinoso on 01-03-2024 Nitrite Ql (U) Negative Negative [facility] No Panel InformationOrdered By: Edenilson Reinoso on 01-03-2024 Estimated GFR (CKD-EPI) > 60.0 mL/Min [facility] Creatinine Clearance (Chem 73.17 [facility] Nucleated erythrocytes [Pres ence] in Blood by Automated countOrdered By: Edenilson Reinoso on 01-03-2024 Nucleated RBC Auto Ql (Bld) 0.3 /100{WBC} 0-0.5 [facility] Platelet mean volume [Entiti c volume] in Blood by Automated countOrdered By: Edenilson Reinoso on 01-03-2024 Platelet mean volume (Bld) [Entitic vol] 8.5 fL Normal 6.6-10.1 [facility] Comment on above: Performed By: #### C H50, C3, C4 #### [facility] , #### ADDONUAPLUS, CMP, ESR, CBC #### [facility] [address] [place] [address] Platelets [#/volume] in Bloo d by Automated countOrdered By: Edenilson Reinoso on 01-03-2024 Platelets (Bld) [#/Vol] 229 10*3/uL Normal 150-450 [facility] Comment on above: Performed By: #### C H50, C3, C4 #### [facility] , #### ADDONUAPLUS, CMP, ESR, CBC #### [facility] [address] [place] [address] Potassium [Moles/volume] in Serum or PlasmaOrdered By: Edenilson Reinoso on 01-03-2024 Potassium [Moles/Vol] 4.4 mmol/L Normal 3.5-5.1 [facility] Comment on above: Performed By: #### C H50, C3, C4 #### [facility] , #### ADDONUAPLUS, CMP, ESR, CBC #### [facility] [address] Protein Auto test strip (U) [Mass/Vol]Ordered By: Edenilson Reinoso on 01-03-2024 Protein (U) [Mass/Vol] Trace mg/dL Negative [facility] Protein [Mass/volume] in Ser um or PlasmaOrdered By: Edenilson Reinoso on 01-03-2024 Protein [Mass/Vol] 7.0 g/dL Normal 6.4-8.9 [facility] Comment on above: Performed By: #### C H50, C3, C4 #### [facility] , #### ADDONUAPLUS, CMP, ESR, CBC #### [address] Serum globulin measurement b y calculation (mass/volume)Ordered By: Edenilson Reinoso on 01-03-2024 Globulin (S) [Mass/Vol] 2.4 g/dL Normal [facility] Comment on above: Performed By: #### C H50, C3, C4 #### [facility] , #### ADDONUAPLUS, CMP, ESR, CBC #### [facility] [address] [place] [address] Serum or plasma albumin/glob ulin mass ratioOrdered By: Edenilson Reinoso on 01-03-2024 Albumin/Globulin [Mass ratio] 1.9 {ratio} [facility] Comment on above: Performed By: #### C H50, C3, C4 #### [facility] , #### ADDONUAPLUS, CMP, ESR, CBC #### [facility] [address] [place] [address] Serum or plasma anion gap de terminationOrdered By: Edenilson Reinoso on 01-03-2024 Anion gap [Moles/Vol] 15.7 mmol/L High 6.0-15.0 [facility] Comment on above: Performed By: #### C H50, C3, C4 #### [facility] , #### ADDONUAPLUS, CMP, ESR, CBC #### [facility] [address] [place] [address] Sodium [Moles/volume] in Ser um or PlasmaOrdered By: Edenilson Reinoso on 01-03-2024 Sodium [Moles/Vol] 138 mmol/L Normal 136-145 [facility] Comment on above: Performed By: #### C H50, C3, C4 #### [facility] , #### ADDONUAPLUS, CMP, ESR, CBC #### [facility] [address] Specific gravity Auto test s trip (U) [Rel density]Ordered By: Edenilson Reinoso on 01-03-2024 Specific gravity (U) [Rel density] 1.034 1.001-1.03 0 [facility] Squamous epithelial cells de tection in urine sediment by light microscopyOrdered By: Edenilson Reinoso on 01-03-2024 Epithelial cells.squamous LM Ql (Urine sed) 0-1 [HPF] 0-2 [facility] Troponin I High Sensitivityo n 01-03-2024 Troponin I High Sensitivity 7.2 pg/mL Normal 0.0-20.0 [facility] Comment on above: Result Comment: PERF ORMED BY: [place] [address] PATHOLOGIST [employer] TECHNICIAN OLMAN ALBARRAN M.D. Performed By: #### C H50, C3, C4 #### [facility] , #### ADDONUAPLUS, CMP, ESR, CBC #### [facility] [address] [place] [address] Troponin I.cardiac [Mass/vol ume] in Serum or Plasma by Detection limit <= 0.01 ng/Ordered By: Edenilson Reinoso on 01-03-2024 Troponin I.cardiac DL <= 0.01 ng/mL [Mass/Vol] 7.2 pg/mL 0.0-20.0 [facility] Urea nitrogen [Mass/volume] in Serum or PlasmaOrdered By: Edenilson Reinoso on 01-03-2024 Urea nitrogen [Mass/Vol] 21 mg/dL Normal 7-25 [facility] Comment on above: Performed By: #### C H50, C3, C4 #### [facility] , #### ADDONUAPLUS, CMP, ESR, CBC #### [facility] [address] [place] [id number] [facility] Urine bacteria detection by automated methodOrdered By: Edenilson Reinoso on 01-03-2024 Bacteria Auto Ql (U) None seen None Seen [facility] Urine clarity by refractomet ry automatedOrdered By: Edenilson Reinoso on 01-03-2024 Clarity Refractometry automated (U) Cloudy Clear [facility] Urine glucose measurement by automated test strip (mass/volume)Ordered By: Edenilson Reinoso on 01-03-2024 Glucose Auto test strip (U) [Mass/Vol] Normal mg/dL Normal [facility] Urine hemoglobin detection b y automated test stripOrdered By: Edenilson Reinoso on 01-03-2024 Hemoglobin Auto test strip Ql (U) Negative Negative [facility] Urine leukocyte esterase det ection by automated test stripOrdered By: Edenilson Reinoso on 01-03-2024 Leukocyte esterase Auto test strip Ql (U) Negative Negative [facility] Urine pH measurement by auto mated test stripOrdered By: Edenilson Reinoso on 01-03-2024 pH (U) 5.0 [pH] Normal 5.0-9.0 [facility] Comment on above: Order Comment: Name Collection Type:: Clean-Voided Midstream Performed By: #### A DDONUAPLUS ####[facility] [id number] [place] [id number] [facility] Urobilinogen Auto test strip (U) [Mass/Vol]Ordered By: Edenilson Reinoso on 01-03-2024 Urobilinogen (U) [Mass/Vol] Normal mg/dL Normal [facility] ECG 12 lead ECGon 01-02-2024 ECG 12 lead ECG [facility] [place] [address] [place] [address] Electrocardiograph Report Signed Patient: Valentin Torre MR#: [id number] [birth year] : 1955 Acct:[id number] Age/Sex: 68 / M ADM Date: 01/02/24 [...] in Anterior leads Confirmed by Bayron Tim ([id number]) on 01/06/2024 6:22:05 PM Referred By: Electronically Signed By:Bayron Tim Transcribed By: MUS Signed By Bayron Tim MD 01/06/24 6151 Normal [facility] XR cerv spine AP/LAT/FLX/EXT on 12-30-2023 XR cerv spine AP/LAT/FLX/EXT [facility] [place] [address] [place] [address] XRay Report Signed Patient: Valentin Torre MR#: [id number] [birth year] : 1955 Acct:[id number] Age/Sex: 68 / M ADM Date: 12/30/23 Loc: Room: Type: [facility] Attending Dr: Мария DAUGHERTY Copies to: [facility] [...] Audie Cortes M.D.12/30/2023 3:38 PM Dictation Location: [facility] Transcribed By: MARV 12/30/23 1538 Dictated By: Audie Cortes DO 12/30/23 1535 Signed By: 12/30/23 1538 Normal [facility] XR lumbar spine 6V w bending on 12-30-2023 XR lumbar spine 6V w bending [facility] [place] [address] XRay Report Signed Patient: Valentin Torre MR#: [id number] [birth year] : 1955 Acct:[id number] Age/Sex: 68 / M ADM Date: 12/30/23 Loc: XD Room: Type: [facility] Attending Dr: Мария DAUGHERTY Copies to: [facility] [...] Audie Cortes M.D.12/30/2023 3:44 PM Dictation Location: [facility] Transcribed By: MARV 12/30/23 1544 Dictated By: Audie Cortes DO 12/30/23 1540 Signed By: 12/30/23 154 Normal [facility] XR lumbar spine 2-3V*on 11-22 XR lumbar spine 2-3V* [facility] Main [place] [address] [place] [id number] XRay Report Signed Patient: Valentin Torre MR#: [id number] 29 : 1955 Acct:[id number] Age/Sex: 68 / M ADM Date: 12/15/23 Loc: XD Room: Type: [facility] Attending Dr: Sascha Sutton DO Copies to: [...] Audie Cortes M.D.12/15/2023 2:24 PM Dictation Location: [place] [address] Transcribed By: [facility] 12/15/23 1424 Dictated By: Audie Cortes DO 12/15/23 1402 Signed By: 12/15/23 1424 Normal [facility] COMPREHENSIVE METABOLIC PANE Vivek 12-14-2023 Albumin [Mass/Vol] 4.5 g/dL Normal 3.2-5.3 [facility] Comment on above: Performed By: #### C ERICA, 65866-6 #### [facility] ([id number]) [address], [address] [place] [address] ALP [Catalytic activity/Vol] 83 U/L Normal 39-130 [facility] Comment on above: Performed By: #### Dannie MALDONADO, 23316-7 #### [facility] ([id number]) [address] [place] [address] ALT [Catalytic activity/Vol] 25 U/L Normal 0-40 [facility] Comment on above: Performed By: #### Dannie MALDONADO, 60152-4 #### [facility] ([id number]) [address], [address] [place] [address] Anion gap [Moles/Vol] 11 mmol/L Normal 5-15 [facility] Comment on above: Performed By: #### Dannie MALDONADO, 13444-7 #### [facility] ([id number]) [address], [address] [place] [address] AST [Catalytic activity/Vol] 18 U/L Normal 0-41 [facility] Comment on above: Performed By: #### Dannie MALDONADO, 11345-5 #### [facility] ([id number]) [address], [address] [place] [address] Bilirubin [Mass/Vol] 0.8 mg/dL Normal 0.3-1.2 [facility] Comment on above: Performed By: #### Dannie MALDONADO, 79828-3 #### [facility] ([id number]) [address], [address] [place] [address] Calcium [Mass/Vol] 9.1 mg/dL Normal 8.5-10.5 [facility] Comment on above: Performed By: #### Dannie MALDONADO, 92955-3 #### [facility] ([id number]) [address], [address] [place] [address] Chloride [Moles/Vol] 105 mmol/L Normal 98-109 [facility] Comment on above: Performed By: #### Dannie MALDONADO, 83993-8 #### [facility] ([id number]) [address], [address] [place] [address] CO2 [Moles/Vol] 23 mmol/L Normal 22-32 [facility] Comment on above: Performed By: #### Dannie MALDONADO 53265-3 #### [facility] ([id number]) [address] [place] [address] Creatinine [Mass/Vol] 0.89 mg/dL Normal 0.60-1.30 [facility] Comment on above: Result Comment: METH OD TRACEABLE TO IDMS STANDARD Performed By: #### C ERICA, 15718-6 #### [facility] ([id number]) [address], [address] [place] [address] eGFR (CKD-EPI) NON-RACE DEPENDENT >90 Normal >59 [facility] Comment on above: Result Comment: Reported eGFR is based on the CKD-EPI 2020 equation that does not use a race coefficient. Performed By: #### Dannie MALDONADO, 13464-5 #### [facility] ([id number]) [address] [place] [address] Glucose [Mass/Vol] 96 mg/dL Normal 65-99 [facility] Comment on above: Performed By: #### Dannie MALDONADO, 47253-4 #### [facility] ([id number]) [address] [place] [address] Potassium [Moles/Vol] 4.0 mmol/L Normal 3.5-5.0 [facility] Comment on above: Performed By: #### Dannie MALDONADO, 14048-9 #### [facility] ([id number]) [address] [place] [address] Protein [Mass/Vol] 7.1 g/dL Normal 6.0-8.0 [facility] Comment on above: Performed By: #### Dannie MALDONADO 27196-3 #### [facility] ([id number]) [address] [place] [address] Sodium [Moles/Vol] 139 mmol/L Normal 134-146 [facility] Comment on above: Performed By: #### Dannie MALDONADO, 79791-4 #### [facility] ([id number]) [address], [address] [place] [address] Urea nitrogen [Mass/Vol] 25 mg/dL Normal 5-27 [facility] Comment on above: Performed By: #### C , 61247-3 #### [facility] ([id number]) [address], [address] [place] [address] Comprehensive metabolic pane vivek 12-14-2023 Albumin [Mass/Vol] 4.5 g/dL 3.2 - 5.3 g/dL [facility] ALP [Catalytic activity/Vol] 83 U/L 39 - 130 U/L [facility] ALT No additional P-5'-P [Catalytic activity/Vol] 25 U/L 0 - 40 U/L [facility] Anion gap [Moles/Vol] 11 mmol/L 5 - 15 mmol/L [facility] AST [Catalytic activity/Vol] 18 U/L 0 - 41 U/L [facility] Bilirubin [Mass/Vol] 0.8 mg/dL 0.3 - 1 .2 mg/dL [facility] Calcium [Mass/Vol] 9.1 mg/dL 8.5 - 10. 5 mg/dL [facility] Chloride [Moles/Vol] 105 mmol/L 98 - 10 9 mmol/L [facility] CO2 [Moles/Vol] 23 mmol/L 22 - 32 mmol/L [facility] Creatinine [Mass/Vol] 0.89 mg/dL 0.60 - 1.30 mg/dL [facility] Comment on above: METHOD TRACEABLE TO IDIA STANDARD eGFR (CKD-EPI)non-race dependent - PINF [facility] Comment on above: Reported eGFR is based on the CKD-EPI 2020 equation that does not use a race coefficient. Glucose [Mass/Vol] 96 mg/dL 65 - 99 mg/dL [facility] Potassium [Moles/Vol] 4.0 mmol/L 3.5 - 5.0 mmol/L [facility] Protein [Mass/Vol] 7.1 g/dL 6.0 - 8.0 g/dL [facility] Sodium [Moles/Vol] 139 mmol/L 134 - 146 mmol/L [facility] Urea nitrogen [Mass/Vol] 25 mg/dL 5 - 27 mg/dL [facility] Lipid 1996 panelon 4 Cholesterol [Mass/Vol] 124 mg/dL Low 150 - 200 mg/dL [facility] Cholesterol in HDL [Mass/Vol] 46 mg/dL 39 - PINF mg/dL [facility] Comment on above: HDL <40 mg/dL - High Risk HDL > or = 40mg/dL- Desirable HDL >60 mg/dL - Negative Risk Cholesterol in LDL [Mass/Vol] 57 mg/dL NINF - 130 mg/dL [facility] Comment on above: LDL <100 mg/dL - Desirable LDL >160 mg/dL - High Risk Cholesterol in VLDL [Mass/Vol] 21 mg/dL 0 - 30 mg/dL [facility] Cholesterol.total/Chol esterol in HDL [Mass ratio] 2.7 {ratio} 1.0 - 5.0 [facility] Interpretation and review of laboratory results Abnormal [facility] Triglyceride [Mass/Vol] 103 mg/dL 27 - 150 mg/dL [facility] Cholesterol [Mass/Vol] 124 mg/dL Low 150-200 [facility] Comment on above: Performed By: #### C , 59908-6 #### [facility] ([id number]) [address] [place] [address] Cholesterol in HDL [Mass/Vol] 46 mg/dL Normal >39 [facility] Comment on above: Result Comment: HDL <40 mg/dL - High Risk HDL > or = 40mg/dL- Desirable HDL >60 mg/dL - Negative Risk Performed By: #### Dannie MALDONADO, 94442-8 #### [facility] ([id number]) [address], [address] [place] [address] Cholesterol in LDL [Mass/Vol] 57 mg/dL Normal <130 [facility] Comment on above: Result Comment: LDL <100 mg/dL - Desirable LDL >160 mg/dL - High Risk Performed By: #### Dannie MALDONADO, 26658-5 #### [facility] ([id number]) [address], [address] [place] [address] Cholesterol in VLDL [Mass/Vol] 21 mg/dL Normal 0-30 [facility] Comment on above: Performed By: #### Dannie MALDONADO, 05391-4 #### [facility] ([id number]) [address], [address] [place] [address] CHOLESTEROL:HDL 2.7 Normal 1.0-5.0 [facility] Comment on above: Performed By: #### Dannie MALDONADO, 06607-1 #### [facility] ([id number]) [address] [facility] [address] [address] [address] [place] [address] Triglyceride [Mass/Vol] 103 mg/dL Normal 27-150 [facility] Comment on above: Performed By: #### Dannie MALDONADO, 72082-5 #### [facility] ([id number]) [address] [place] [address] No Panel Informationon 12-14 [facility] Alanine aminotransferase [En zymatic activity/volume] in Serum or PlasmaOrdered By: Romel Davis on 12-08-2023 ALT [Catalytic activity/Vol] 31 U/L Normal 7-52 [facility] Comment on above: Performed By: #### C H50, C3, C4 #### [facility] , #### ADDONUAPLUS, CMP, ESR, CBC #### [facility] [address] [place] [address] Albumin [Mass/volume] in Ser um or Plasma by Bromocresol green (BCG) dye binding methoOrdered By: Romel Davis on 12-08-2023 Albumin BCG dye [Mass/Vol] 4.3 g/dL 3.5-5.7 [facility] Alkaline phosphatase [Enzyma tic activity/volume] in Serum or PlasmaOrdered By: Romel Davis on 12-08-2023 ALP [Catalytic activity/Vol] 80 U/L Normal 34-104 [facility] Comment on above: Result Comment: PERF ORMED BY: [place] [address] PATHOLOGIST [employer] TECHNICIAN OLMAN ALBARRAN M.D. Performed By: #### C H50, C3, C4 #### [facility] , #### ADDONUAPLUS, CMP, ESR, CBC #### [facility] [address] [place] [address] Aspartate aminotransferase [ Enzymatic activity/volume] in Serum or PlasmaOrdered By: Romel Davis on 12-08-2023 AST [Catalytic activity/Vol] 19 U/L Normal 13-39 [facility] Comment on above: Performed By: #### C H50, C3, C4 #### [facility] , #### ADDONUAPLUS, CMP, ESR, CBC #### [facility] [address] [place] [address] Automated basophil %Ordered By: Romel Davis on 12-08-2023 Basophils/100 WBC (Bld) 0.5 % Normal . [facility] Comment on above: Performed By: #### C H50, C3, C4 #### [facility] , #### ADDONUAPLUS, CMP, ESR, CBC #### [facility] [address] [place] [address] Automated basophil countOrde red By: Romel Davis on 12-08-2023 Basophils (Bld) [#/Vol] 0.0 10*3/uL Normal 0.0-0.2 [facility] Comment on above: Performed By: #### C H50, C3, C4 #### [facility] , #### ADDONUAPLUS, CMP, ESR, CBC #### [facility] [address] [place] [address] Automated blood monocyte cou ntOrdered By: Romel Davis on 12-08-2023 Monocytes (Bld) [#/Vol] 0.9 10*3/uL High 0.0-0.8 [facility] Comment on above: Performed By: #### C H50, C3, C4 #### [facility] , #### ADDONUAPLUS, CMP, ESR, CBC #### [facility] [address] [place] [address] Automated eosinophil %Ordere d By: Romel Mendezrow on 12-08-2023 Eosinophils/100 WBC (Bld) 1.2 % Normal . [facility] Comment on above: Performed By: #### C H50, C3, C4 #### [facility] , #### ADDONUAPLUS, CMP, ESR, CBC #### [facility] [address] [place] [address] Automated eosinophil countOr dered By: Romel Mendezrow on 12-08-2023 Eosinophils (Bld) [#/Vol] 0.1 10*3/uL Normal 0.0-0.45 [facility] Comment on above: Performed By: #### C H50, C3, C4 #### [facility] , #### ADDONUAPLUS, CMP, ESR, CBC #### [facility] [address] [place] [address] Automated erythrocytes count in urine sediment (number/area)Ordered By: Romel Mendezrow on 12-08-2023 RBC Auto (Urine sed) [#/Area] 1-2 [HPF] 0-4 [facility] Automated leukocytes count i n urine sediment (number/area)Ordered By: Romel Davis on 12-08-2023 WBC Auto (Urine sed) [#/Area] 0-1 [HPF] 0-4 [facility] Automated monocyte %Ordered By: Romel Davis on 12-08-2023 Monocytes/100 WBC (Bld) 14.0 % Normal . [facility] Comment on above: Performed By: #### C H50, C3, C4 #### [facility] , #### ADDONUAPLUS, CMP, ESR, CBC #### [facility] [address] Automated neutrophil %Ordere d By: Romel Davis on 12-08-2023 Neutrophils/100 WBC (Bld) 69.2 % Normal . [facility] Comment on above: Performed By: #### C H50, C3, C4 #### [facility] , #### ADDONUAPLUS, CMP, ESR, CBC #### [facility] [address] Bilirubin Auto test strip Ql (U)Ordered By: Romel Davis on 12-08-2023 Bilirubin Ql (U) Negative Negative [facility] Bilirubin.total [Mass/volume ] in Serum or PlasmaOrdered By: Romel Davis on 12-08-2023 Bilirubin [Mass/Vol] 0.6 mg/dL Normal 0.3-1.0 [facility] Comment on above: Performed By: #### C H50, C3, C4 #### [facility] , #### ADDONUAPLUS, CMP, ESR, CBC #### [facility] [address] [place] [address] [place] Calcium [Mass/volume] in Ser um or PlasmaOrdered By: Romel Davis on 12-08-2023 Calcium [Mass/Vol] 9.4 mg/dL Normal 8.6-10.3 [facility] Comment on above: Performed By: #### C H50, C3, C4 #### [facility] , #### ADDONUAPLUS, CMP, ESR, CBC #### [facility] [address] [place] [address] [place] Carbon dioxide, total [Moles /volume] in Serum or PlasmaOrdered By: Romel Davis on 12-08-2023 CO2 [Moles/Vol] 25.7 mmol/L Normal 21.0-31.0 [facility] Comment on above: Performed By: #### C H50, C3, C4 #### [facility] , #### ADDONUAPLUS, CMP, ESR, CBC #### [facility] [address] [place] [address] [place] Chloride [Moles/volume] in S ace or PlasmaOrdered By: Romel Davis on 12-08-2023 Chloride [Moles/Vol] 105 mmol/L Normal 98-107 [facility] Comment on above: Performed By: #### C H50, C3, C4 #### [facility] , #### ADDONUAPLUS, CMP, ESR, CBC #### [facility] [address] Complement C3on 12-08-2023 Complement C3 122 mg/dL Normal 82-167 [facility] Comment on above: Result Comment: Perf ormed at: - [facility] [address] [id number] Senior Data Developer: Richy Ardon PhD, Phone: [phone] Performed By: #### C H50, C3, C4 #### [facility] , #### ADDONUAPLUS, CMP, ESR, CBC #### [facility] [address] Complement C4on 12-08-2023 Complement C4 14 mg/dL Normal 12-38 [facility] Comment on above: Result Comment: PERF ORMED BY: [place] [address] PATHOLOGIST [employer] TECHNICIAN OLMAN ALBARRAN M.D. Performed By: #### C H50, C3, C4 #### [facility] , #### ADDONUAPLUS, CMP, ESR, CBC #### [address] Complement Total (CH50)on Complement Total (CH50) 58 Normal >41 [facility] Comment on above: Result [...] out of range values. Performed at: - [facility] [id number] Senior Data Developer: Richy Ardon PhD, Phone: [phone] PERFORMED BY: [place] [address] PATHOLOGIST [employer] TECHNICIAN OLMAN ALBARRAN M.D. Performed By: #### C H50, C3, C4 #### [facility] , #### ADDONUAPLUS, CMP, ESR, CBC #### [address] Complete Blood Count Auto Di ffon 12-08-2023 Mean Corpuscular HGB Conc 34.5 g/dL Normal 32.5-35.6 [facility] Comment on above: Performed By: #### C H50, C3, C4 #### [facility] , #### ADDONUAPLUS, CMP, ESR, CBC #### [facility] [address] [place] [address] NRBC% 0.1 /100{WBC} Normal 0-0.5 [facility] Comment on above: Performed By: #### C H50, C3, C4 #### [facility] , #### ADDONUAPLUS, CMP, ESR, CBC #### [facility] [address] [place] [address] Comprehensive Metabolic Pane vivek 12-08-2023 Albumin [Mass/Vol] 4.3 g/dL Normal 3.5-5.7 [facility] Comment on above: Performed By: #### C H50, C3, C4 #### [facility] , #### ADDONUAPLUS, CMP, ESR, CBC #### [place] [address] [place] GFR/1.73 sq M.predicted MDRD (S/P/Bld) [Vol rate/Area] mL/min/{1.73_m2} Normal [facility] Comment on above: Performed By: #### C H50, C3, C4 #### [facility] , #### ADDONUAPLUS, CMP, ESR, CBC #### [address] Creatinine [Mass/volume] in Serum or PlasmaOrdered By: Romel Davis on 12-08-2023 Creatinine [Mass/Vol] 1.00 mg/dL Normal 0.70-1.30 [facility] Comment on above: Performed By: #### C H50, C3, C4 #### [facility] , #### ADDONUAPLUS, CMP, ESR, CBC #### [address] Dipstick and Microscopicon 0 12-08-2023 Bacteria,Urine None Seen Normal None Seen [facility] Comment on above: Order Comment: Name Collection Type:: Clean-Voided Midstream Performed By: #### C H50, C3, C4 #### [facility] , #### ADDONUAPLUS, CMP, ESR, CBC #### [facility] [address] [place] [address] Bilirubin,Urine Negative Normal Negative [facility] Comment on above: Order Comment: Name Collection Type:: Clean-Voided Midstream Performed By: #### C H50, C3, C4 #### [facility] , #### ADDONUAPLUS, CMP, ESR, CBC #### [address] Glucose Ql (U) Normal Normal Normal [facility] Comment on above: Order Comment: Name Collection Type:: Clean-Voided Midstream Performed By: #### C H50, C3, C4 #### [facility] , #### ADDONUAPLUS, CMP, ESR, CBC #### [address] Hyaline Casts,Urine 0-8 Normal 0-8 [facility] Comment on above: Order Comment: Name Collection Type:: Clean-Voided Midstream Result Comment: PERF ORMED BY: [place] [address] PATHOLOGIST [employer] TECHNICIAN OLMAN ALBARRAN M.D. Performed By: #### C H50, C3, C4 #### [facility] , #### ADDONUAPLUS, CMP, ESR, CBC #### [address] Ketones Ql (U) Negative Normal Negative [facility] Comment on above: Order Comment: Name Collection Type:: Clean-Voided Midstream Performed By: #### C H50, C3, C4 #### [facility] , #### ADDONUAPLUS, CMP, ESR, CBC #### [address] Leukocyte esterase Test strip Ql (U) Negative Normal Negative [facility] Comment on above: Order Comment: Name Collection Type:: Clean-Voided Midstream Performed By: #### C H50, C3, C4 #### [facility] , #### ADDONUAPLUS, CMP, ESR, CBC #### [address] Nitrite,Urine Negative Normal Negative [facility] Comment on above: Order Comment: Name Collection Type:: Clean-Voided Midstream Performed By: #### C H50, C3, C4 #### [facility] , #### ADDONUAPLUS, CMP, ESR, CBC #### [address] Occult Blood,Urine Negative Normal Negative [facility] Comment on above: Order Comment: Name Collection Type:: Clean-Voided Midstream Performed By: #### C H50, C3, C4 #### [facility] , #### ADDONUAPLUS, CMP, ESR, CBC #### [address] Protein,Urine Negative Normal Negative [facility] Comment on above: Order Comment: Name Collection Type:: Clean-Voided Midstream Performed By: #### C H50, C3, C4 #### [facility] , #### ADDONUAPLUS, CMP, ESR, CBC #### [address] RBC,Urine 1-2 Normal 0-4 [facility] Comment on above: Order Comment: Name Collection Type:: Clean-Voided Midstream Performed By: #### C H50, C3, C4 #### [facility] , #### ADDONUAPLUS, CMP, ESR, CBC #### [address] Specificy [place],Urine 1.025 Normal 1.001-1.03 0 [facility] Comment on above: Order Comment: Name Collection Type:: Clean-Voided Midstream Performed By: #### C H50, C3, C4 #### [facility] , #### ADDONUAPLUS, CMP, ESR, CBC #### [address] Squamous Epithelial Cell,Urine None Seen Normal 0-2 [facility] Comment on above: Order Comment: Name Collection Type:: Clean-Voided Midstream Performed By: #### C H50, C3, C4 #### [facility] , #### ADDONUAPLUS, CMP, ESR, CBC #### [address] Urobilinogen,Urine Normal Normal Normal [facility] Comment on above: Order Comment: Name Collection Type:: Clean-Voided Midstream Performed By: #### C H50, C3, C4 #### [facility] , #### ADDONUAPLUS, CMP, ESR, CBC #### [address] WBC LM.HPF (Urine sed) [#/Area] 0 /[HPF] Normal 0-4 [facility] Comment on above: Order Comment: Name Collection Type:: Clean-Voided Midstream Performed By: #### C H50, C3, C4 #### [facility] , #### ADDONUAPLUS, CMP, ESR, CBC #### [address] Erythrocyte Sedimentation Ra bruno 12-08-2023 ESR (Bld) [Velocity] 5 mm/h Normal 0-19 [facility] Comment on above: Result Comment: PERF ORMED BY: [place] [address] PATHOLOGIST [employer] TECHNICIAN OLMAN ALBARRAN M.D. Performed By: #### C H50, C3, C4 #### [facility] , #### ADDONUAPLUS, CMP, ESR, CBC #### [address] Erythrocyte distribution wid th [Ratio] by Automated countOrdered By: Romel Davis on 12-08-2023 Erythrocyte distribution width (RBC) [Ratio] 14.5 % Normal 12.0-14.8 [facility] Comment on above: Performed By: #### C H50, C3, C4 #### [facility] , #### ADDONUAPLUS, CMP, ESR, CBC #### [address] Erythrocyte sedimentation ra te by Photometric methodOrdered By: Romel Mendezrow on 12-08-2023 ESR Photometric method (Bld) [Velocity] 5 mm/hr 0-19 [facility] Erythrocytes [#/volume] in B lood by Automated countOrdered By: Romel Davis on 12-08-2023 RBC (Bld) [#/Vol] 5.18 10*6/uL Normal 3.90-5.60 [facility] Comment on above: Performed By: #### C H50, C3, C4 #### [facility] , #### ADDONUAPLUS, CMP, ESR, CBC #### [address] Glucose [Mass/volume] in Ser um or PlasmaOrdered By: Romel Mendezrow on 12-08-2023 Glucose [Mass/Vol] 88 mg/dL Normal 70-100 [facility] Comment on above: ADA recommended refe rence rangeRandom Glucose Reference Range is dependent on time and content of last meal. Glucose of more than 200 mg/dL in a nonstressed, ambulatory subject supports the diagnosis of Diabetes Mellitus. Result Comment: [place] om Glucose Reference Range is dependent on time and content of last meal. Glucose of more than 200 mg/dL in a nonstressed, ambulatory subject supports the diagnosis of Diabetes Mellitus. ADA recommended reference range Performed By: #### C H50, C3, C4 #### [facility] , #### ADDONUAPLUS, CMP, ESR, CBC #### [address] Hematocrit [Volume Fraction] of Blood by Automated countOrdered By: Romel Mendezrow on 12-08-2023 Hematocrit (Bld) [Volume fraction] 46.1 % Normal 38.8-50.0 [facility] Comment on above: Performed By: #### C H50, C3, C4 #### [facility] , #### ADDONUAPLUS, CMP, ESR, CBC #### [address] [place] [address] [place] Hemoglobin [Mass/volume] in BloodOrdered By: Romel Mendezrow on 12-08-2023 Hemoglobin (Bld) [Mass/Vol] 15.9 g/dL Normal 13.0-17.0 [facility] Comment on above: Performed By: #### C H50, C3, C4 #### [facility] , #### ADDONUAPLUS, CMP, ESR, CBC #### [facility] [address] [place] [address] Ketones Auto test strip (U) [Mass/Vol]Ordered By: Romelsera Davis on 12-08-2023 Ketones (U) [Mass/Vol] Negative Negative [facility] - UrinalysisOrder ed By: Romel Davis on 12-08-2023 Hyaline casts LM Ql (Urine sed) 0-8 [LPF] 0-8 [facility] Leukocytes [#/volume] correc nat for nucleated erythrocytes in Blood by Automated counOrdered By: Romel Mendezrow on 12-08-2023 WBC corrected for nucl RBC Auto (Bld) [#/Vol] 6.4 10*3/uL 4.1-10.5 [facility] Leukocytes [#/volume] in Blo od by Automated countOrdered By: Romel Mendezrow on 12-08-2023 WBC (Bld) [#/Vol] 6.4 10*3/uL Normal 4.1-10.5 [facility] Comment on above: Performed By: #### C H50, C3, C4 #### [facility] , #### ADDONUAPLUS, CMP, ESR, CBC #### [facility] [address] [place] [address] Lymphocytes [#/volume] in Bl ood by Automated countOrdered By: Romel Davis on 12-08-2023 Lymphocytes (Bld) [#/Vol] 1.0 10*3/uL Normal 1.00-4.8 [facility] Comment on above: Performed By: #### C H50, C3, C4 #### [facility] , #### ADDONUAPLUS, CMP, ESR, CBC #### [facility] [address] [place] [address] Lymphocytes/100 leukocytes i n Blood by Automated countOrdered By: Romel Mendezrow on 12-08-2023 Lymphocytes/100 WBC (Bld) 15.1 % Normal . [facility] Comment on above: Performed By: #### C H50, C3, C4 #### [facility] , #### ADDONUAPLUS, CMP, ESR, CBC #### [facility] [address] [place] [address] MCH [Entitic mass] by Automa nat countOrdered By: Roeml Mendezrow on 12-08-2023 MCH (RBC) [Entitic mass] 30.7 pg Normal 27.5-35.2 [facility] Comment on above: Performed By: #### C H50, C3, C4 #### [facility] , #### ADDONUAPLUS, CMP, ESR, CBC #### [address] MCHC Auto (RBC) [Mass/Vol]Or dered By: Romel Ryan on 12-08-2023 MCHC (RBC) [Mass/Vol] 34.5 g/dL 32.5-35.6 [facility] MCV [Entitic volume] by Auto mated countOrdered By: Romel Ryan on 12-08-2023 MCV (RBC) [Entitic vol] 89.0 fL Normal 83.5-101 [facility] Comment on above: Performed By: #### C H50, C3, C4 #### [facility] , #### ADDONUAPLUS, CMP, ESR, CBC #### [facility] [address] [place] [address] Neutrophils [#/volume] in Bl ood by Automated countOrdered By: Romel Davis on 12-08-2023 Neutrophils (Bld) [#/Vol] 4.4 10*3/uL Normal 1.8-7.7 [facility] Comment on above: Performed By: #### C H50, C3, C4 #### [facility] , #### ADDONUAPLUS, CMP, ESR, CBC #### [facility] [address] No Panel InformationOrdered By: Romel Davis on 12-08-2023 Estimated GFR (CKD-EPI) > 60.0 mL/Min [facility] Creatinine Clearance (Chem N/A [facility] Total Complement (CH50) 58 U/mL >41 [facility] Comment on above: Age Male Female 3 [...] to determine out of range values.Performed at: [facility] [address] Director: Richy Ardon PhD, Phone: [phone] Nucleated erythrocytes [Pres ence] in Blood by Automated countOrdered By: Romel Davis on 12-08-2023 Nucleated RBC Auto Ql (Bld) 0.1 /100{WBC} 0-0.5 [facility] Platelet mean volume [Entiti c volume] in Blood by Automated countOrdered By: Romel Davis on 12-08-2023 Platelet mean volume (Bld) [Entitic vol] 8.7 fL Normal 6.6-10.1 [facility] Comment on above: Performed By: #### C H50, C3, C4 #### [facility] , #### ADDONUAPLUS, CMP, ESR, CBC #### [facility] [address] [place] [address] [place] Platelets [#/volume] in Bloo d by Automated countOrdered By: Romel Davis on 12-08-2023 Platelets (Bld) [#/Vol] 203 10*3/uL Normal 150-450 [facility] Comment on above: Performed By: #### C H50, C3, C4 #### [facility] , #### ADDONUAPLUS, CMP, ESR, CBC #### [facility] [address] [place] [address] Potassium [Moles/volume] in Serum or PlasmaOrdered By: Romel Davis on 12-08-2023 Potassium [Moles/Vol] 4.3 mmol/L Normal 3.5-5.1 [facility] Comment on above: Performed By: #### C H50, C3, C4 #### [facility] , #### ADDONUAPLUS, CMP, ESR, CBC #### [address] Protein Auto test strip (U) [Mass/Vol]Ordered By: Romel Davis on 12-08-2023 Protein (U) [Mass/Vol] Negative Negative [facility] Protein [Mass/volume] in Ser um or PlasmaOrdered By: Romel Davis on 12-08-2023 Protein [Mass/Vol] 6.3 g/dL Low 6.4-8.9 [facility] Comment on above: Performed By: #### C H50, C3, C4 #### [facility] , #### ADDONUAPLUS, CMP, ESR, CBC #### [facility] [address] [place] [address] Serum globulin measurement b y calculation (mass/volume)Ordered By: Romel Davis on 12-08-2023 Globulin (S) [Mass/Vol] 2.0 g/dL [facility] Comment on above: Performed By: #### C H50, C3, C4 #### [facility] , #### ADDONUAPLUS, CMP, ESR, CBC #### [facility] [address] [place] [address] Serum or plasma albumin/glob ulin mass ratioOrdered By: Romel Davis on 12-08-2023 Albumin/Globulin [Mass ratio] 2.2 {ratio} [facility] Comment on above: Performed By: #### C H50, C3, C4 #### [facility] , #### ADDONUAPLUS, CMP, ESR, CBC #### [facility] [address] [place] [address] Serum or plasma anion gap de terminationOrdered By: Romel Davis on 12-08-2023 Anion gap [Moles/Vol] 10.6 mmol/L Normal 6.0-15.0 [facility] Comment on above: Performed By: #### C H50, C3, C4 #### [facility] , #### ADDONUAPLUS, CMP, ESR, CBC #### [address] Serum or plasma complement C 3 measurement (mass/volume)Ordered By: Romel Davis on 12-08-2023 Complement C3 [Mass/Vol] 122 mg/dL 82-167 [facility] Comment on above: Performed at: - [facility] [id number] Director: Richy Ardon PhD, Phone: [phone] Serum or plasma complement C 4 measurement (mass/volume)Ordered By: Romel Davis on 12-08-2023 Complement C4 [Mass/Vol] 14 mg/dL 12-38 [facility] Sodium [Moles/volume] in Ser um or PlasmaOrdered By: Romel Davis on 12-08-2023 Sodium [Moles/Vol] 137 mmol/L Normal 136-145 [facility] Comment on above: Performed By: #### C H50, C3, C4 #### [facility] , #### ADDONUAPLUS, CMP, ESR, CBC #### [facility] [address] [place] [address] Squamous epithelial cells de tection in urine sediment by light microscopyOrdered By: Romel Davis on 12-08-2023 Epithelial cells.squamous LM Ql (Urine sed) None seen [HPF] 0-2 [facility] Urea nitrogen [Mass/volume] in Serum or PlasmaOrdered By: Romel Davis on 12-08-2023 Urea nitrogen [Mass/Vol] 27 mg/dL High 7-25 [facility] Comment on above: Performed By: #### C H50, C3, C4 #### [facility] , #### ADDONUAPLUS, CMP, ESR, CBC #### [facility] [address] [place] [address] Urine appearanceOrdered By: Romel Davis on 12-08-2023 Appearance (U) Clear Normal Clear [facility] Comment on above: Order Comment: Name Collection Type:: Clean-Voided Midstream Performed By: #### C H50, C3, C4 #### [facility] , #### ADDONUAPLUS, CMP, ESR, CBC #### [facility] [address] [place] [address] Urine bacteria detection by automated methodOrdered By: Romel Davis on 12-08-2023 Bacteria Auto Ql (U) None seen None Seen [facility] Urine colorOrdered By: Manuel Davis on 12-08-2023 Color (U) Yellow Normal Yellow [facility] Comment on above: Order Comment: Name Collection Type:: Clean-Voided Midstream Performed By: #### C H50, C3, C4 #### [facility] , #### ADDONUAPLUS, CMP, ESR, CBC #### [facility] [address] [place] [address] Urine glucose measurement by automated test strip (mass/volume)Ordered By: Romel Davis on 12-08-2023 Glucose Auto test strip (U) [Mass/Vol] Normal mg/dL Normal [facility] Urine hemoglobin detection b y automated test stripOrdered By: Romel Davis on 12-08-2023 Hemoglobin Auto test strip Ql (U) Negative Negative [facility] Urine leukocyte esterase det ection by automated test stripOrdered By: Romel Davis on 12-08-2023 Leukocyte esterase Auto test strip Ql (U) Negative Negative [facility] Urine nitrite detection by a utomated test stripOrdered By: Romel Davis on 12-08-2023 Nitrite Auto test strip Ql (U) Negative Negative [facility] Urine pH measurement by auto mated test stripOrdered By: Romelsera Davis on 12-08-2023 pH (U) 7.0 [pH] Normal 5.0-9.0 [facility] Comment on above: Order Comment: Name Collection Type:: Clean-Voided Midstream Performed By: #### C H50, C3, C4 #### [facility] , #### ADDONUAPLUS, CMP, ESR, CBC #### [facility] [address] Urobilinogen Auto test strip (U) [Mass/Vol]Ordered By: Romel Davis on 12-08-2023 Urobilinogen (U) [Mass/Vol] Normal mg/dL Normal [facility] pH Auto test strip (U)Ordere d By: Romel Davis on 12-08-2023 pH (U) 1.025 [pH] 1.001-1.03 0 [facility]son 10-21-2023 Lab Reports [id number] Normal [facility] Carbon dioxide, total [Moles /volume] in Serum or PlasmaOrdered By: Zac Muniz on 10-20-2023 CO2 [Moles/Vol] 23.8 mmol/L Normal 21.0-31.0 [facility] Comment on above: Performed By: #### L YTES ####[facility] [place] [address] [place] Chloride [Moles/volume] in S ace or PlasmaOrdered By: Zac Muniz on 10-20-2023 Chloride [Moles/Vol] 107 mmol/L Normal 98-107 [facility] Comment on above: Performed By: #### L YTES ####[facility] Potassium [Moles/volume] in Serum or PlasmaOrdered By: Zac Muniz on 10-20-2023 Potassium [Moles/Vol] 4.1 mmol/L Normal 3.5-5.1 [facility] Comment on above: Performed By: #### L YTES ####[place] [address] [place] [id number] [facility] Serum or plasma anion gap de terminationOrdered By: Zac Muniz on 10-20-2023 Anion gap [Moles/Vol] 12.3 mmol/L Normal 6.0-15.0 [facility] Comment on above: Result Comment: PERF ORMED BY: [facility] [address] [place] [id number] PATHOLOGIST [employer]CELAIN TECHNICIAN OLMAN ALBARRAN M.D. Performed By: #### L YTES ####[place] [address] [place] [id number] [facility] Sodium [Moles/volume] in Ser um or PlasmaOrdered By: Zac Muniz on 10-20-2023 Sodium [Moles/Vol] 139 mmol/L Normal 136-145 [facility] Comment on above: Performed By: #### L YTES ####[place] [address] [place] [id number] [facility] Ambulatory Visit Summaryon 1 Ambulatory Visit Summary VALENTIN TORRE :1955 Visit Date:09/19/2023 Ambulatory Visit Instructions Your Diagnosis Kidney stones History of kidney stones Tests Performed Urnls Dip Stick Auto w/o Microscopy POC 06014 XR Abdomen 1 View -- Results Pending -- Please visit your patient portal for your results or contact your primary care physician. Your Care Team Attending Physician - Zac [...] [facility] [address] , [place] [address]- [phone] Medications What How Much When Instructions Unchanged [...] Urnls Dip Stick Auto w/o Microscopy POC 24154 (09/19/2023) Bilirubin Urine Dipstick - Negative Blood Urine Dipstick - Negative Glucose Urine Dipstick - Negative Ketones Urine Dipstick - Negative Leukocytes Urine Dipstick - Negative Nitrite Urine Dipstick - Negative Protein Urine Dipstick - Negative Specific [place] Urine Dipstick - 1.015 Urine Appearance Urine [...] You m (more content not included)... Normal [facility] Patient Education 09-19-20 Patient Education Nephrology Dietary Guidelines to [...] ? 8 oz (237 mL) of milk, juwgwdf-nrvprygztqto-zfghd milk, and calcium-fortifiedfruit juice. Calcium-fortified means that [...] Spinach (cooked), rhubarb, beets, sweet potatoes, and Iraqi chard. ? Peanuts. ? Potato chips, lebanese fries, and baked potatoes with skin on. ? Nuts and nut products. ? Chocolate. ? If you regularly take a diuretic medicine, make sure to eat at least 1 or 2 servings of fruits or vegetables that are high in potassium each day. These include: ? Avocado. ? Banana. ? [place], prune, carrot, or tomato juice. ? Baked [...] fish oil, or vitamin B6. ? Take jrdt-dkv-uepmrgf and prescription medicines only as told by your health care provider. These include supplements. What foods should I limit? Limit your in (more content not included)... Normal [facility] Urology Office/Clinic Noteon 09-19-2023 Urology Office/Clinic Note Chief Complaint 4m Metabolic Work Up HPI Staff 68 yo male here for 4 month f/u with metabolic workup. Previous Dx: ureteral stone with hydro, kidney stones, hx of kidney stones, gross hematuria. Stone analysis 05/18/23 - 100% uric acid. KUB 08/04/23 at [facility] - continued bilateral stones. 24hr urine done [...] - 100% uric acid. KUB 08/04/23 at [facility] - two stones at R mid-upper pole [...] acknowledges understanding. -Begin Effer-K. Rx sent to [facility] [place]. -Electrolyte panel in 1 month 2. History of kidney stones (Z87.442: Personal history of urinary calculi) Pt has a hx of kidney stones but has always been able to pass them on is own. Three episodes in his lifetime. Recently passed stones on 05/15/23. Follow-up With When Contact Information FLAVIO ONEAL, Zac De Oliveira, L [facility] [address], [place] [address] [phone] Additional Instructions: 6 mos w/ KUB Patient [...] Substance Abuse, (more content not included)... Normal [facility] Comment on above: Result Comment: Elec tronically Signed By: Zac MUNIZ MD\.br\Date and Time Signed: 09/19/23 10:31 EDT\.br\Electronically Co-Signed By: Adela Frias\.br\Date and Time Co-Signed: 09/19/23 10:30 EDT XR hip RT min 2V(w/wo pelvis )*on 09-12-2023 XR hip RT min 2V(w/wo pelvis)* [facility] [place] [address] XRay Report Signed Patient: Valentin Torre MR#: [id number] 29 : 1955 Acct:[id number] Age/Sex: 68 / M ADM Date: 09/12/23 Loc: XD Room: Type: [facility] Attending Dr: Romel Davis MD Copies to: [...] Audie Cortes M.D.09/12/2023 11:57 AM Dictation Location: [place] [address] Transcribed By: [facility] 09/12/23 1157 Dictated By: Audie Cortes DO 09/12/23 1142 Signed By: 09/12/23 1157 Normal [facility] Alanine aminotransferase [En zymatic activity/volume] in Serum or PlasmaOrdered By: Romel Davis on 09-05-2023 ALT [Catalytic activity/Vol] 29 U/L Normal 7-52 [facility] Comment on above: Performed By: #### C 4, CH50, C3 ####[facility] ,#### CBC, CMP, ADDONUAPLUS, ESR ####[facility] [address] [place] [address] [place] Albumin [Mass/volume] in Ser um or Plasma by Bromocresol green (BCG) dye binding methoOrdered By: Romel Davis on 09-05-2023 Albumin BCG dye [Mass/Vol] 4.2 g/dL 3.5-5.7 [facility] Alkaline phosphatase [Enzyma tic activity/volume] in Serum or PlasmaOrdered By: Romel Davis on 09-05-2023 ALP [Catalytic activity/Vol] 83 U/L Normal 34-104 [facility] Comment on above: Result Comment: PERF ORMED BY: [facility] [address] [place] [address] PATHOLOGIST [employer]AIN TECHNICIAN OLMAN ALBARRAN M.D. Performed By: #### C 4, CH50, C3 ####[facility] ,#### CBC, CMP, ADDONUAPLUS, ESR ####[address] Aspartate aminotransferase [ Enzymatic activity/volume] in Serum or PlasmaOrdered By: Romel Davis on 09-05-2023 AST [Catalytic activity/Vol] 19 U/L Normal 13-39 [facility] Comment on above: Performed By: #### C 4, CH50, C3 ####[facility] ,#### CBC, CMP, ADDONUAPLUS, ESR ####[address] Automated basophil %Ordered By: Romel Davis on 09-05-2023 Basophils/100 WBC (Bld) 0.6 % Normal . [facility] Comment on above: Performed By: #### C 4, CH50, C3 ####[facility] ,#### CBC, CMP, ADDONUAPLUS, ESR ####[address] Automated basophil countOrde red By: Romel Davis on 09-05-2023 Basophils (Bld) [#/Vol] 0.0 10*3/uL Normal 0.0-0.2 [facility] Comment on above: Performed By: #### C 4, CH50, C3 ####[facility] ,#### CBC, CMP, ADDONUAPLUS, ESR ####[address] Automated blood monocyte cou ntOrdered By: Romel Mendezrow on 09-05-2023 Monocytes (Bld) [#/Vol] 0.6 10*3/uL Normal 0.0-0.8 [facility] Comment on above: Performed By: #### C 4, CH50, C3 ####[facility] ,#### CBC, CMP, ADDONUAPLUS, ESR ####[address] Automated eosinophil %Ordere d By: Romel Davis on 09-05-2023 Eosinophils/100 WBC (Bld) 0.9 % Normal . [facility] Comment on above: Performed By: #### C 4, CH50, C3 ####[facility] ,#### CBC, CMP, ADDONUAPLUS, ESR ####[facility] [address] Automated eosinophil countOr dered By: Romel Davis on 09-05-2023 Eosinophils (Bld) [#/Vol] 0.1 10*3/uL Normal 0.0-0.45 [facility] Comment on above: Performed By: #### C 4, CH50, C3 ####[facility] ,#### CBC, CMP, ADDONUAPLUS, ESR ####[place] [address] [address] Automated erythrocytes count in urine sediment (number/area)Ordered By: Romel Davis on 09-05-2023 RBC Auto (Urine sed) [#/Area] 0-1 [HPF] 0-4 [facility] Automated leukocytes count i n urine sediment (number/area)Ordered By: Romel Davis on 09-05-2023 WBC Auto (Urine sed) [#/Area] 0-1 [HPF] 0-4 [facility] Automated monocyte %Ordered By: Romel Davis on 09-05-2023 Monocytes/100 WBC (Bld) 10.3 % Normal . [facility] Comment on above: Performed By: #### C 4, CH50, C3 ####[facility] ,#### CBC, CMP, ADDONUAPLUS, ESR ####[place] [address] [address] Automated neutrophil %Ordere d By: Romel Davis on 09-05-2023 Neutrophils/100 WBC (Bld) 70.5 % Normal . [facility] Comment on above: Performed By: #### C 4, CH50, C3 ####[facility] ,#### CBC, CMP, ADDONUAPLUS, ESR ####[address] Automated urine color determ inationOrdered By: Romel Davis on 09-05-2023 Color (U) Yellow Normal Yellow [facility] Comment on above: Order Comment: Name Collection Type:: Clean-Voided Midstream Performed By: #### C 4, CH50, C3 ####[facility] ,#### CBC, CMP, ADDONUAPLUS, ESR ####[address] Bilirubin Test strip Ql (U)O rdered By: Romel Davis on 09-05-2023 Bilirubin Ql (U) Negative Negative [facility] Bilirubin.total [Mass/volume ] in Serum or PlasmaOrdered By: Romel Davis on 09-05-2023 Bilirubin [Mass/Vol] 0.8 mg/dL Normal 0.3-1.0 [facility] Comment on above: Performed By: #### C 4, CH50, C3 ####[facility] ,#### CBC, CMP, ADDONUAPLUS, ESR ####[address] Calcium [Mass/volume] in Ser um or PlasmaOrdered By: Romel Davis on 09-05-2023 Calcium [Mass/Vol] 9.2 mg/dL Normal 8.6-10.3 [facility] Comment on above: Performed By: #### C 4, CH50, C3 ####[facility] ,#### CBC, CMP, ADDONUAPLUS, ESR ####[address] Carbon dioxide, total [Moles /volume] in Serum or PlasmaOrdered By: Romel Davis on 09-05-2023 CO2 [Moles/Vol] 27.9 mmol/L Normal 21.0-31.0 [facility] Comment on above: Performed By: #### C 4, CH50, C3 ####[facility] ,#### CBC, CMP, ADDONUAPLUS, ESR ####[place] [address] [address] Chloride [Moles/volume] in S cae or PlasmaOrdered By: Romel Davis on 09-05-2023 Chloride [Moles/Vol] 107 mmol/L Normal 98-107 [facility] Comment on above: Performed By: #### C 4, CH50, C3 ####[facility] ,#### CBC, CMP, ADDONUAPLUS, ESR ####[address] Complement C3on 09-05-2023 Complement C3 124 mg/dL Normal 82-167 [facility] Comment on above: Result Comment: Perf ormed at: - [facility] [address] [id number] Senior Data Developer: Richy Ardon PhD, Phone: [phone] Performed By: #### C 4, CH50, C3 ####[facility] ,#### CBC, CMP, ADDONUAPLUS, ESR ####[address] Complement C4on 09-05-2023 Complement C4 15 mg/dL Normal 12-38 [facility] Comment on above: Result Comment: PERF ORMED BY: [facility] [address] [place] [address] PATHOLOGIST [employer]AIN TECHNICIAN OLMAN ALBARRAN M.D. Performed By: #### C 4, CH50, C3 ####[facility] ,#### CBC, CMP, ADDONUAPLUS, ESR ####[address] Complement Total (CH50)on Complement Total (CH50) 57 Normal >41 [facility] Comment on above: Result [...] out of range values. Performed at: - [facility] [id number] Senior Data Developer: Richy Ardon PhD, Phone: [phone] PERFORMED BY: [place] [address] PATHOLOGIST P[employer]CELAIN TECHNICIAN OLMAN ALBARRAN M.D. Performed By: #### C 4, CH50, C3 ####[facility] ,#### CBC, CMP, ADDONUAPLUS, ESR ####[address] Complete Blood Count Auto Di ffon 09-05-2023 Mean Corpuscular HGB Conc 34.2 g/dL Normal 32.5-35.6 [facility] Comment on above: Performed By: #### C 4, CH50, C3 ####[facility] ,#### CBC, CMP, ADDONUAPLUS, ESR ####[address] NRBC% 0.1 /100{WBC} Normal 0-0.5 [facility] Comment on above: Performed By: #### C 4, CH50, C3 ####[facility] ,#### CBC, CMP, ADDONUAPLUS, ESR ####[address] Comprehensive Metabolic Pane vivek 09-05-2023 Albumin [Mass/Vol] 4.2 g/dL Normal 3.5-5.7 [facility] Comment on above: Performed By: #### C 4, CH50, C3 ####[facility] ,#### CBC, CMP, ADDONUAPLUS, ESR ####[facility] [address] GFR/1.73 sq M.predicted MDRD (S/P/Bld) [Vol rate/Area] mL/min/{1.73_m2} Normal [facility] Comment on above: Performed By: #### C 4, CH50, C3 ####[facility] ,#### CBC, CMP, ADDONUAPLUS, ESR ####[address] Creatinine [Mass/volume] in Serum or PlasmaOrdered By: Romel Davis on 09-05-2023 Creatinine [Mass/Vol] 0.88 mg/dL Normal 0.70-1.30 [facility] Comment on above: Performed By: #### C 4, CH50, C3 ####[facility] ,#### CBC, CMP, ADDONUAPLUS, ESR ####[address] Dipstick and Microscopicon 1 Appearance (U) Clear Normal Clear [facility] Comment on above: Order Comment: Name Collection Type:: Clean-Voided Midstream Performed By: #### C 4, CH50, C3 ####[facility] ,#### CBC, CMP, ADDONUAPLUS, ESR ####[address] Bacteria,Urine None Seen Normal None Seen [facility] Comment on above: Order Comment: Name Collection Type:: Clean-Voided Midstream Performed By: #### C 4, CH50, C3 ####[facility] ,#### CBC, CMP, ADDONUAPLUS, ESR ####[place] [address] [place] Bilirubin,Urine Negative Normal Negative [facility] Comment on above: Order Comment: Name Collection Type:: Clean-Voided Midstream Performed By: #### C 4, CH50, C3 ####[facility] ,#### CBC, CMP, ADDONUAPLUS, ESR ####[address] Glucose Ql (U) Normal Normal Normal [facility] Comment on above: Order Comment: Name Collection Type:: Clean-Voided Midstream Performed By: #### C 4, CH50, C3 ####[facility] ,#### CBC, CMP, ADDONUAPLUS, ESR ####[address] Hyaline Casts,Urine None Seen Normal 0-8 [facility] Comment on above: Order Comment: Name Collection Type:: Clean-Voided Midstream Result Comment: PERF ORMED BY: [facility] [address] [place] [address] PATHOLOGIST P[employer]CELAIN TECHNICIAN OLMAN ALBARRAN M.D. Performed By: #### C 4, CH50, C3 ####[facility] ,#### CBC, CMP, ADDONUAPLUS, ESR ####[address] Ketones Ql (U) Trace High Negative [facility] Comment on above: Order Comment: Name Collection Type:: Clean-Voided Midstream Performed By: #### C 4, CH50, C3 ####[facility] ,#### CBC, CMP, ADDONUAPLUS, ESR ####[address] Leukocyte esterase Test strip Ql (U) Negative Normal Negative [facility] Comment on above: Order Comment: Name Collection Type:: Clean-Voided Midstream Performed By: #### C 4, CH50, C3 ####[facility] ,#### CBC, CMP, ADDONUAPLUS, ESR ####[address] Nitrite,Urine Negative Normal Negative [facility] Comment on above: Order Comment: Name Collection Type:: Clean-Voided Midstream Performed By: #### C 4, CH50, C3 ####[facility] ,#### CBC, CMP, ADDONUAPLUS, ESR ####[address] Occult Blood,Urine Negative Normal Negative [facility] Comment on above: Order Comment: Name Collection Type:: Clean-Voided Midstream Performed By: #### C 4, CH50, C3 ####[facility] ,#### CBC, CMP, ADDONUAPLUS, ESR ####[address] Protein,Urine Negative Normal Negative [facility] Comment on above: Order Comment: Name Collection Type:: Clean-Voided Midstream Performed By: #### C 4, CH50, C3 ####[facility] ,#### CBC, CMP, ADDONUAPLUS, ESR ####[address] RBC LM.HPF (Urine sed) [#/Area] 0 /[HPF] Normal 0-4 [facility] Comment on above: Order Comment: Name Collection Type:: Clean-Voided Midstream Performed By: #### C 4, CH50, C3 ####[facility] ,#### CBC, CMP, ADDONUAPLUS, ESR ####[address] Specificy [place],Urine 1.025 Normal 1.001-1.03 0 [facility] Comment on above: Order Comment: Name Collection Type:: Clean-Voided Midstream Performed By: #### C 4, CH50, C3 ####[facility] ,#### CBC, CMP, ADDONUAPLUS, ESR ####[address] Squamous Epithelial Cell,Urine None Seen Normal 0-2 [facility] Comment on above: Order Comment: Name Collection Type:: Clean-Voided Midstream Performed By: #### C 4, CH50, C3 ####[facility] ,#### CBC, CMP, ADDONUAPLUS, ESR ####[address] Urobilinogen,Urine Normal Normal Normal [facility] Comment on above: Order Comment: Name Collection Type:: Clean-Voided Midstream Performed By: #### C 4, CH50, C3 ####[facility] ,#### CBC, CMP, ADDONUAPLUS, ESR ####[address] WBC LM.HPF (Urine sed) [#/Area] 0 /[HPF] Normal 0-4 [facility] Comment on above: Order Comment: Name Collection Type:: Clean-Voided Midstream Performed By: #### C 4, CH50, C3 ####[facility] ,#### CBC, CMP, ADDONUAPLUS, ESR ####[address] Erythrocyte Sedimentation Ra bruno 09-05-2023 ESR (Bld) [Velocity] 3 mm/h Normal 0-19 [facility] Comment on above: Result Comment: PERF ORMED BY: [facility] [place] [address] [place] [address] PATHOLOGIST [employer] TECHNICIAN OLMAN ALBARRAN M.D. Performed By: #### C 4, CH50, C3 ####[facility] ,#### CBC, CMP, ADDONUAPLUS, ESR ####[address] Erythrocyte distribution wid th [Ratio] by Automated countOrdered By: Romel Davis on 09-05-2023 Erythrocyte distribution width (RBC) [Ratio] 14.1 % Normal 12.0-14.8 [facility] Comment on above: Performed By: #### C 4, CH50, C3 ####[facility] ,#### CBC, CMP, ADDONUAPLUS, ESR ####[id number] [place] [id number] [facility] Erythrocyte sedimentation ra te by Photometric methodOrdered By: Romelsera Davis on 09-05-2023 ESR Photometric method (Bld) [Velocity] 3 mm/hr 0-19 [facility] Erythrocytes [#/volume] in B lood by Automated countOrdered By: Romel Mendezrow on 09-05-2023 RBC (Bld) [#/Vol] 4.96 10*6/uL Normal 3.90-5.60 [facility] Comment on above: Performed By: #### C 4, CH50, C3 ####[facility] ,#### CBC, CMP, ADDONUAPLUS, ESR ####[place] [id number] [address] Glucose [Mass/volume] in Ser um or PlasmaOrdered By: Romel Davis on 09-05-2023 Glucose [Mass/Vol] 75 mg/dL Normal 70-100 [facility] Comment on above: ADA recommended refe rence rangeRandom Glucose Reference Range is dependent on time and content of last meal. Glucose of more than 200 mg/dL in a nonstressed, ambulatory subject supports the diagnosis of Diabetes Mellitus. Result Comment: [place] om Glucose Reference Range is dependent on time and content of last meal. Glucose of more than 200 mg/dL in a nonstressed, ambulatory subject supports the diagnosis of Diabetes Mellitus. ADA recommended reference range Performed By: #### C 4, CH50, C3 ####[facility] ,#### CBC, CMP, ADDONUAPLUS, ESR ####[place] [address] [place] [id number] [facility] Hematocrit [Volume Fraction] of Blood by Automated countOrdered By: Romel Mendezrow on 09-05-2023 Hematocrit (Bld) [Volume fraction] 44.5 % Normal 38.8-50.0 [facility] Comment on above: Performed By: #### C 4, CH50, C3 ####[facility] ,#### CBC, CMP, ADDONUAPLUS, ESR ####[facility] [id number] [address] Hemoglobin [Mass/volume] in BloodOrdered By: Romel Mendezrow on 09-05-2023 Hemoglobin (Bld) [Mass/Vol] 15.2 g/dL Normal 13.0-17.0 [facility] Comment on above: Performed By: #### C 4, CH50, C3 ####[facility] ,#### CBC, CMP, ADDONUAPLUS, ESR ####[place] [address] [place] [id number] [facility] Ketones Auto test strip (U) [Mass/Vol]Ordered By: Romelsera Davis on 09-05-2023 Ketones (U) [Mass/Vol] Trace Negative [facility] - UrinalysisOrder ed By: Romel Davis on 09-05-2023 Hyaline casts LM Ql (Urine sed) None seen [LPF] 0-8 [facility] Leukocytes [#/volume] correc nat for nucleated erythrocytes in Blood by Automated counOrdered By: Romelsera Davis on 09-05-2023 WBC corrected for nucl RBC Auto (Bld) [#/Vol] 5.9 10*3/uL 4.1-10.5 [facility] Leukocytes [#/volume] in Blo od by Automated countOrdered By: Romel Davis on 09-05-2023 WBC (Bld) [#/Vol] 5.9 10*3/uL Normal 4.1-10.5 [facility] Comment on above: Performed By: #### C 4, CH50, C3 ####[facility] ,#### CBC, CMP, ADDONUAPLUS, ESR ####[place] [id number] [address] Lymphocytes [#/volume] in Bl ood by Automated countOrdered By: Romel Davis on 09-05-2023 Lymphocytes (Bld) [#/Vol] 1.1 10*3/uL Normal 1.00-4.8 [facility] Comment on above: Performed By: #### C 4, CH50, C3 ####[facility] ,#### CBC, CMP, ADDONUAPLUS, ESR ####[address] Lymphocytes/100 leukocytes i n Blood by Automated countOrdered By: Romelsera Davis on 09-05-2023 Lymphocytes/100 WBC (Bld) 17.7 % Normal . [facility] Comment on above: Performed By: #### C 4, CH50, C3 ####[facility] ,#### CBC, CMP, ADDONUAPLUS, ESR ####[address] MCH [Entitic mass] by Automa nat countOrdered By: Romel Ryan on 09-05-2023 MCH (RBC) [Entitic mass] 30.7 pg Normal 27.5-35.2 [facility] Comment on above: Performed By: #### C 4, CH50, C3 ####[facility] ,#### CBC, CMP, ADDONUAPLUS, ESR ####[address] MCHC Auto (RBC) [Mass/Vol]Or dered By: Romel Davis on 09-05-2023 MCHC (RBC) [Mass/Vol] 34.2 g/dL 32.5-35.6 [facility] MCV [Entitic volume] by Auto mated countOrdered By: Roeml Davis on 09-05-2023 MCV (RBC) [Entitic vol] 89.9 fL Normal 83.5-101 [facility] Comment on above: Performed By: #### C 4, CH50, C3 ####[facility] ,#### CBC, CMP, ADDONUAPLUS, ESR ####[address] Neutrophils [#/volume] in Bl ood by Automated countOrdered By: Romel Davis on 09-05-2023 Neutrophils (Bld) [#/Vol] 4.2 10*3/uL Normal 1.8-7.7 [facility] Comment on above: Performed By: #### C 4, CH50, C3 ####[facility] ,#### CBC, CMP, ADDONUAPLUS, ESR ####[facility] [id number] [address] Nitrite Test strip Ql (U)Ord ered By: Romel Mendezrow on 09-05-2023 Nitrite Ql (U) Negative Negative [facility] No Panel InformationOrdered By: Romel Ryan on 09-05-2023 Estimated GFR (CKD-EPI) > 60.0 mL/Min [facility] Creatinine Clearance (Chem N/A [facility] Total Complement (CH50) 57 U/mL >41 [facility] Comment on above: Age Male Female 3 [...] to determine out of range values.Performed at: [place] [id number] Director: Richy Ardon PhD, Phone: [phone] Nucleated erythrocytes [Pres ence] in Blood by Automated countOrdered By: Romel Davis on 09-05-2023 Nucleated RBC Auto Ql (Bld) 0.1 /100{WBC} 0-0.5 [facility] Platelet mean volume [Entiti c volume] in Blood by Automated countOrdered By: Romel Ryan on 09-05-2023 Platelet mean volume (Bld) [Entitic vol] 8.9 fL Normal 6.6-10.1 [facility] Comment on above: Performed By: #### C 4, CH50, C3 ####[facility] ,#### CBC, CMP, ADDONUAPLUS, ESR ####[facility] [id number] Platelets [#/volume] in Bloo d by Automated countOrdered By: Romel Davis on 09-05-2023 Platelets (Bld) [#/Vol] 175 10*3/uL Normal 150-450 [facility] Comment on above: Performed By: #### C 4, CH50, C3 ####[facility] ,#### CBC, CMP, ADDONUAPLUS, ESR ####[facility] [id number] [address] Potassium [Moles/volume] in Serum or PlasmaOrdered By: Romel Davis on 09-05-2023 Potassium [Moles/Vol] 4.1 mmol/L Normal 3.5-5.1 [facility] Comment on above: Performed By: #### C 4, CH50, C3 ####[facility] ,#### CBC, CMP, ADDONUAPLUS, ESR ####[address] Protein Auto test strip (U) [Mass/Vol]Ordered By: Romel Davis on 09-05-2023 Protein (U) [Mass/Vol] Negative Negative [facility] Protein [Mass/volume] in Ser um or PlasmaOrdered By: Romel Davis on 09-05-2023 Protein [Mass/Vol] 6.1 g/dL Low 6.4-8.9 [facility] Comment on above: Performed By: #### C 4, CH50, C3 ####[facility] ,#### CBC, CMP, ADDONUAPLUS, ESR ####[address] Serum globulin measurement b y calculation (mass/volume)Ordered By: Romel Davis on 09-05-2023 Globulin (S) [Mass/Vol] 1.9 g/dL Normal [facility] Comment on above: Performed By: #### C 4, CH50, C3 ####[facility] ,#### CBC, CMP, ADDONUAPLUS, ESR ####[place] [id number] [address] Serum or plasma albumin/glob ulin mass ratioOrdered By: Romel Davis on 09-05-2023 Albumin/Globulin [Mass ratio] 2.2 {ratio} Normal [facility] Comment on above: Performed By: #### C 4, CH50, C3 ####[facility] ,#### CBC, CMP, ADDONUAPLUS, ESR ####[address] Serum or plasma anion gap de terminationOrdered By: Romel Davis on 09-05-2023 Anion gap [Moles/Vol] 10.2 mmol/L Normal 6.0-15.0 [facility] Comment on above: Performed By: #### C 4, CH50, C3 ####[facility] ,#### CBC, CMP, ADDONUAPLUS, ESR ####[address] Serum or plasma complement C 3 measurement (mass/volume)Ordered By: Romel Davis on 09-05-2023 Complement C3 [Mass/Vol] 124 mg/dL 82-167 [facility] Comment on above: Performed at: [address] [id number] Director: Richy Ardon PhD, Phone: [phone] Serum or plasma complement C 4 measurement (mass/volume)Ordered By: Romel Davis on 09-05-2023 Complement C4 [Mass/Vol] 15 mg/dL 12-38 [facility] Sodium [Moles/volume] in Ser um or PlasmaOrdered By: Romel Davis on 09-05-2023 Sodium [Moles/Vol] 141 mmol/L Normal 136-145 [facility] Comment on above: Performed By: #### C 4, CH50, C3 ####[facility] ,#### CBC, CMP, ADDONUAPLUS, ESR ####[place] [id number] [place] Specific gravity Auto test s trip (U) [Rel density]Ordered By: Romel Davis on 09-05-2023 Specific gravity (U) [Rel density] 1.025 1.001-1.03 0 [facility] Squamous epithelial cells de tection in urine sediment by light microscopyOrdered By: Romel Davis on 09-05-2023 Epithelial cells.squamous LM Ql (Urine sed) None seen [HPF] 0-2 [facility] Urea nitrogen [Mass/volume] in Serum or PlasmaOrdered By: Romel Davis on 09-05-2023 Urea nitrogen [Mass/Vol] 19 mg/dL Normal 7-25 [facility] Comment on above: Performed By: #### C 4, CH50, C3 ####[facility] ,#### CBC, CMP, ADDONUAPLUS, ESR ####[facility] [id number] [address] Urine bacteria detection by automated methodOrdered By: Romel Davis on 09-05-2023 Bacteria Auto Ql (U) None seen None Seen [facility] Urine clarity by refractomet ry automatedOrdered By: Romel Davis on 09-05-2023 Clarity Refractometry automated (U) Clear Clear [facility] Urine glucose measurement by automated test strip (mass/volume)Ordered By: Romel Davis on 09-05-2023 Glucose Auto test strip (U) [Mass/Vol] Normal mg/dL Normal [facility] Urine hemoglobin detection b y automated test stripOrdered By: Romel Davis on 09-05-2023 Hemoglobin Auto test strip Ql (U) Negative Negative [facility] Urine leukocyte esterase det ection by automated test stripOrdered By: Romel Davis on 09-05-2023 Leukocyte esterase Auto test strip Ql (U) Negative Negative [facility] Urine pH measurement by auto mated test stripOrdered By: Romel Davis on 09-05-2023 pH (U) 5.5 [pH] Normal 5.0-9.0 [facility] Comment on above: Order Comment: Name Collection Type:: Clean-Voided Midstream Performed By: #### C 4, CH50, C3 ####[facility] ,#### CBC, CMP, ADDONUAPLUS, ESR ####[facility] [id number] Urobilinogen Auto test strip (U) [Mass/Vol]Ordered By: Romel Davis on 09-05-2023 Urobilinogen (U) [Mass/Vol] Normal mg/dL Normal [facility] 24 hour urine sodium measure ment (moles/time)Ordered By: Zac Muniz on 08-16-2023 Sodium (24H U) [Moles/Time] 181 mmol/24 40-220 [facility] 24 hour urine uric acid ophelia urement (mass/time)Ordered By: Zac Muniz on 08-16-2023 Urate (24H U) [Mass/Time] 674.9 mg/24 hr 182.4-936. 8 [facility] Comment on above: Performed at: [address] Director: Richy Ardon PhD, Phone: [phone] CT biopsyOrdered By: Zac Muniz on 08-16-2023 CT biopsy 24 Hours [facility] Calcium [Mass/time] in 24 ho ur UrineOrdered By: Zac Muniz on 08-16-2023 Calcium (24H U) [Mass/Time] 98 mg/24 hr 0-320 [facility] Calcium [Mass/volume] in 24 hour UrineOrdered By: Zac Muniz on 08-16-2023 Calcium (24H U) [Mass/Vol] 3.3 mg/dL Not Estab. [facility] Calcium [Mass/volume] in Ser um or PlasmaOrdered By: Zac Muniz on 08-16-2023 Calcium [Mass/Vol] 9.2 mg/dL 8.6-10.3 [facility] Carbon dioxide, total [Moles /volume] in Serum or PlasmaOrdered By: Zac Muniz on 08-16-2023 CO2 [Moles/Vol] 22.4 mmol/L 21.0-31.0 [facility] Chloride [Moles/volume] in S ace or PlasmaOrdered By: Zac Muniz on 08-16-2023 Chloride [Moles/Vol] 108 mmol/L 98-107 [facility] Creatinine [Mass/volume] in Serum or PlasmaOrdered By: Zac Muniz on 08-16-2023 Creatinine [Mass/Vol] 0.88 mg/dL 0.70-1.30 [facility] Creatinine [Mass/volume] in UrineOrdered By: Zac Muniz on 08-16-2023 Creatinine (U) [Mass/Vol] 57.00 mg/dL 14.00-26.0 0 [facility] Magnesium [Mass/time] in 24 hour UrineOrdered By: Zacgreyson Muniz on 08-16-2023 Magnesium (24H U) [Mass/Time] 97.7 mg/24 hr 12.0-293.0 [facility] Magnesium [Mass/volume] in U rineOrdered By: Zac Muniz on 08-16-2023 Magnesium (U) [Mass/Vol] 3.3 mg/dL Not Estab. [facility] No Panel InformationOrdered By: Zac Muniz on 08-16-2023 Estimated GFR (CKD-EPI) > 60.0 mL/Min [facility] Creatinine Clearance (Chem N/A [facility] Urine Citric Acid 219 mg/L Undefined [facility] Comment on above: This test was develo ped and its performance characteristicsdetermined by [facility]. It has not been cleared orapproved by the Food and Drug Administration. Urine Citric Acid 24 Hour 648 mg/24 hr 320-1240 [facility] Comment on above: Performed at: [address] [id number] Director: Kaley Joaquin MD, Phone: [phone] Urine Creatinine 24 Hour 1.68 g/24 hr 1.00-2.09 [facility] Oxalate [Mass/time] in 24 ho ur UrineOrdered By: Zac Muniz on 08-16-2023 Oxalate (24H U) [Mass/Time] 18 mg/24 hr 7-44 [facility] Oxalate [Mass/volume] in Uri neOrdered By: Zac Muniz on 08-16-2023 Oxalate (U) [Mass/Vol] 6 mg/L Undefined [facility] Parathyrin.intact [Mass/volu me] in Serum or PlasmaOrdered By: Zac Muniz on 08-16-2023 Parathyrin.intact [Mass/Vol] 53.9 pg/mL 12 [facility] Phosphate [Mass/time] in 24 hour UrineOrdered By: Zac Muniz on 08-16-2023 Phosphate (24H U) [Mass/Time] 462 mg/24 hr 390-1425 [facility] Phosphate [Mass/volume] in U rineOrdered By: Zac Muniz on 08-16-2023 Phosphate (U) [Mass/Vol] 15.6 mg/dL Not Estab. [facility] Potassium [Moles/volume] in Serum or PlasmaOrdered By: Zac Muniz on 08-16-2023 Potassium [Moles/Vol] 4.0 mmol/L 3.5-5.1 [facility] Serum or plasma anion gap de terminationOrdered By: Zac Muniz on 08-16-2023 Anion gap [Moles/Vol] 12.6 mmol/L 6.0-15.0 [facility] Sodium [Moles/volume] in Ser um or PlasmaOrdered By: Zac Muniz on 08-16-2023 Sodium [Moles/Vol] 139 mmol/L 136-145 [facility] Sodium [Moles/volume] in Uri neOrdered By: Zac Muniz on 08-16-2023 Sodium (U) [Moles/Vol] 61.0 mmol/L [facility] Comment on above: No reference range e stablished Urate [Mass/volume] in Serum or PlasmaOrdered By: Zac Muniz on 08-16-2023 Urate [Mass/Vol] 4.3 mg/dL 4.4-7.6 [facility] Urea nitrogen [Mass/volume] in Serum or PlasmaOrdered By: Zac Muniz on 08-16-2023 Urea nitrogen [Mass/Vol] 22 mg/dL 7-25 [facility] Urine uric acid measurement (mass/volume)Ordered By: Zac Muniz on 08-16-2023 Urate (U) [Mass/Vol] 22.8 mg/dL Not Estab. [facility] Urine volume measurementOrde red By: Zac Muniz on 08-16-2023 Specimen volume (U) 2960 ml [facility] Alanine aminotransferase [En zymatic activity/volume] in Serum or PlasmaOrdered By: Zac Muniz on 05-31-2023 ALT [Catalytic activity/Vol] 34 U/L 7-52 [facility] Albumin [Mass/volume] in Ser um or Plasma by Bromocresol green (BCG) dye binding methoOrdered By: Zac Muniz on 05-31-2023 Albumin BCG dye [Mass/Vol] 4.4 g/dL 3.5-5.7 [facility] Alkaline phosphatase [Enzyma tic activity/volume] in Serum or PlasmaOrdered By: Zac Muniz on 05-31-2023 ALP [Catalytic activity/Vol] 82 U/L 34-104 [facility] Aspartate aminotransferase [ Enzymatic activity/volume] in Serum or PlasmaOrdered By: Zac Muniz on 05-31-2023 AST [Catalytic activity/Vol] 24 U/L 13-39 [facility] Automated erythrocytes count in urine sediment (number/area)Ordered By: Christine Sanchez on 05-31-2023 RBC Auto (Urine sed) [#/Area] 1-2 [HPF] 0-4 [facility] Automated leukocytes count i n urine sediment (number/area)Ordered By: Christine Sanchez on 05-31-2023 WBC Auto (Urine sed) [#/Area] 0-1 [HPF] 0-4 [facility] Basophils Auto (Bld) [#/Vol] Ordered By: Christine Sanchez on 05-31-2023 Basophils (Bld) [#/Vol] 0.0 10*3/uL 0.0-0.2 [facility] Basophils/100 WBC Auto (Bld) Ordered By: Christine Sanchez on 05-31-2023 Basophils/100 WBC (Bld) 0.8 % . [facility] Bilirubin Test strip Ql (U)O rdered By: Christine Sanchez on 05-31-2023 Bilirubin Ql (U) Negative Negative [facility] Bilirubin.total [Mass/volume ] in Serum or PlasmaOrdered By: Zac Muniz on 05-31-2023 Bilirubin [Mass/Vol] 0.8 mg/dL 0.3-1.0 [facility] Calcium [Mass/volume] in Ser um or PlasmaOrdered By: Zac Muniz on 05-31-2023 Calcium [Mass/Vol] 9.1 mg/dL 8.6-10.3 [facility] Carbon dioxide, total [Moles /volume] in Serum or PlasmaOrdered By: Zac Muniz on 05-31-2023 CO2 [Moles/Vol] 24.0 mmol/L 21.0-31.0 [facility] Chloride [Moles/volume] in S ace or PlasmaOrdered By: Zac Muniz on 05-31-2023 Chloride [Moles/Vol] 106 mmol/L 98-107 [facility] Color Auto (U)Ordered By: Marianna Arellano on 05-31-2023 Color (U) Yellow Yellow [facility] Creatinine [Mass/volume] in Serum or PlasmaOrdered By: Zac Muniz on 05-31-2023 Creatinine [Mass/Vol] 1.05 mg/dL 0.70-1.30 [facility] Eosinophils Auto (Bld) [#/Vo l]Ordered By: Christine Sanchez on 05-31-2023 Eosinophils (Bld) [#/Vol] 0.1 10*3/uL 0.0-0.45 [facility] Eosinophils/100 WBC Auto (Bl d)Ordered By: Christine Sanchez on 05-31-2023 Eosinophils/100 WBC (Bld) 1.4 % . [facility] Erythrocyte distribution wid th Auto (RBC) [Ratio]Ordered By: Christine Sanchez on 05-31-2023 Erythrocyte distribution width (RBC) [Ratio] 14.9 % 12.0-14.8 [facility] Erythrocyte sedimentation ra te by Photometric methodOrdered By: Christine Sanchez on 05-31-2023 ESR Photometric method (Bld) [Velocity] 6 mm/hr 0-19 [facility] Globulin Calc (S) [Mass/Vol] Ordered By: Zac Muniz on 05-31-2023 Globulin (S) [Mass/Vol] 2.3 g/dL [facility] Glucose [Mass/volume] in Ser um or PlasmaOrdered By: Zac Muniz on 05-31-2023 Glucose [Mass/Vol] 82 mg/dL 70-100 [facility] Comment on above: ADA recommended refe rence rangeRandom Glucose Reference Range is dependent on time and content of last meal. Glucose of more than 200 mg/dL in a nonstressed, ambulatory subject supports the diagnosis of Diabetes Mellitus. Hematocrit Auto (Bld) [Volum e fraction]Ordered By: Christine Sanchez on 05-31-2023 Hematocrit (Bld) [Volume fraction] 43.1 % 38.8-50.0 [facility] Hemoglobin [Mass/volume] in BloodOrdered By: Christine Sanchez on 05-31-2023 Hemoglobin (Bld) [Mass/Vol] 14.9 g/dL 13.0-17.0 [facility] Ketones Auto test strip (U) [Mass/Vol]Ordered By: Christine Sanchez on 05-31-2023 Ketones (U) [Mass/Vol] Trace Negative [facility] - UrinalysisOrder ed By: Christine Sanchez on 05-31-2023 Hyaline casts LM Ql (Urine sed) 0-8 [LPF] 0-8 [facility] Leukocytes [#/volume] correc nat for nucleated erythrocytes in Blood by Automated counOrdered By: Christine Sanchez on 05-31-2023 WBC corrected for nucl RBC Auto (Bld) [#/Vol] 5.5 10*3/uL 4.1-10.5 [facility] Lymphocytes Auto (Bld) [#/Vo l]Ordered By: Christine Sanchez on 05-31-2023 Lymphocytes (Bld) [#/Vol] 1.3 10*3/uL 1.00-4.8 [facility] Lymphocytes/100 WBC Auto (Bl d)Ordered By: Christine Sanchez on 05-31-2023 Lymphocytes/100 WBC (Bld) 24.3 % . [facility] MCH Auto (RBC) [Entitic mass ]Ordered By: Christine Sanchez on 07-11-2023 MCH (RBC) [Entitic mass] 30.8 pg 27.5-35.2 [facility] MCHC Auto (RBC) [Mass/Vol]Or dered By: Christine Sanchez on 05-31-2023 MCHC (RBC) [Mass/Vol] 34.6 g/dL 32.5-35.6 [facility] MCV Auto (RBC) [Entitic vol] Ordered By: Christine Sanchez on 05-31-2023 MCV (RBC) [Entitic vol] 89.1 fL 83.5-101 [facility] Monocytes Auto (Bld) [#/Vol] Ordered By: Christine Sanchez on 05-31-2023 Monocytes (Bld) [#/Vol] 0.7 10*3/uL 0.0-0.8 [facility] Monocytes/100 WBC Auto (Bld) Ordered By: Christine Sanchez on 05-31-2023 Monocytes/100 WBC (Bld) 12.9 % . [facility] Neutrophils Auto (Bld) [#/Vo l]Ordered By: Christine Sanchez on 05-31-2023 Neutrophils (Bld) [#/Vol] 3.3 10*3/uL 1.8-7.7 [facility] Neutrophils/100 WBC Auto (Bl d)Ordered By: Christine Sanchez on 05-31-2023 Neutrophils/100 WBC (Bld) 60.6 % . [facility] Nitrite Test strip Ql (U)Ord ered By: Christine Sanchez on 05-31-2023 Nitrite Ql (U) Negative Negative [facility] No Panel InformationOrdered By: Zac Muniz on 05-31-2023 Estimated GFR (CKD-EPI) > 60.0 mL/Min [facility] Creatinine Clearance (Chem N/A [facility] No Panel InformationOrdered By: Christine Sanchez on 05-31-2023 Total Complement (CH50) 60 U/mL >41 [facility] Comment on above: Age Male Female 3 [...] to determine out of range values.Performed at: [facility] [id number] Director: Richy Ardon PhD, Phone: [phone] Nucleated erythrocytes [Pres ence] in Blood by Automated countOrdered By: Christine Sanchez on 05-31-2023 Nucleated RBC Auto Ql (Bld) 0.1 /100{WBC} 0-0.5 [facility] Platelet mean volume Auto (B ld) [Entitic vol]Ordered By: Christine Sanchez on 05-31-2023 Platelet mean volume (Bld) [Entitic vol] 8.4 fL 6.6-10.1 [facility] Platelets Auto (Bld) [#/Vol] Ordered By: Christine Sanchez on 05-31-2023 Platelets (Bld) [#/Vol] 178 10*3/uL 150-450 [facility] Potassium [Moles/volume] in Serum or PlasmaOrdered By: Zac Muniz on 05-31-2023 Potassium [Moles/Vol] 4.4 mmol/L 3.5-5.1 [facility] Protein Auto test strip (U) [Mass/Vol]Ordered By: Christine Sanchez on 05-31-2023 Protein (U) [Mass/Vol] Trace mg/dL Negative [facility] Protein [Mass/volume] in Ser um or PlasmaOrdered By: Zac Muniz on 05-31-2023 Protein [Mass/Vol] 6.7 g/dL 6.4-8.9 [facility] RBC Auto (Bld) [#/Vol]Ordere d By: Christine Sanchez on 05-31-2023 RBC (Bld) [#/Vol] 4.84 10*6/uL 3.90-5.60 [facility] Serum or plasma albumin/glob ulin mass ratioOrdered By: Zac Muniz on 05-31-2023 Albumin/Globulin [Mass ratio] 1.9 {ratio} [facility] Serum or plasma anion gap de terminationOrdered By: Zac Muniz on 05-31-2023 Anion gap [Moles/Vol] 11.4 mmol/L 6.0-15.0 [facility] Serum or plasma complement C 3 measurement (mass/volume)Ordered By: Christine Sanchez on 05-31-2023 Complement C3 [Mass/Vol] 132 mg/dL 82-167 [facility] Comment on above: Performed at: [address] [id number] Director: Richy Ardon PhD, Phone: [phone] Serum or plasma complement C 4 measurement (mass/volume)Ordered By: Christine Sanchez on 05-31-2023 Complement C4 [Mass/Vol] 16 mg/dL 12-38 [facility] Sodium [Moles/volume] in Ser um or PlasmaOrdered By: Zac Muniz on 05-31-2023 Sodium [Moles/Vol] 137 mmol/L 136-145 [facility] Specific gravity Auto test s trip (U) [Rel density]Ordered By: Christine Sanchez on 05-31-2023 Specific gravity (U) [Rel density] 1.023 1.001-1.03 0 [facility] Squamous epithelial cells de tection in urine sediment by light microscopyOrdered By: Christine Sanchez on 05-31-2023 Epithelial cells.squamous LM Ql (Urine sed) None seen [HPF] 0-2 [facility] Urea nitrogen [Mass/volume] in Serum or PlasmaOrdered By: Zac Muniz on 05-31-2023 Urea nitrogen [Mass/Vol] 28 mg/dL 7-25 [facility] Urine bacteria detection by automated methodOrdered By: Christine Sanchez on 05-31-2023 Bacteria Auto Ql (U) None seen None Seen [facility] Urine clarity by refractomet ry automatedOrdered By: Christine Sanchez on 05-31-2023 Clarity Refractometry automated (U) Clear Clear [facility] Urine glucose measurement by automated test strip (mass/volume)Ordered By: Christine Sanchez on 05-31-2023 Glucose Auto test strip (U) [Mass/Vol] Normal mg/dL Normal [facility] Urine hemoglobin detection b y automated test stripOrdered By: Christine Sanchez on 05-31-2023 Hemoglobin Auto test strip Ql (U) Negative Negative [facility] Urine leukocyte esterase det ection by automated test stripOrdered By: Christine Sanchez on 05-31-2023 Leukocyte esterase Auto test strip Ql (U) Negative Negative [facility] Urobilinogen Auto test strip (U) [Mass/Vol]Ordered By: Christine Sanchez on 05-31-2023 Urobilinogen (U) [Mass/Vol] Normal mg/dL Normal [facility] WBC Auto (Bld) [#/Vol]Ordere d By: Christine Sanchez on 05-31-2023 WBC (Bld) [#/Vol] 5.5 10*3/uL 4.1-10.5 [facility] pH Auto test strip (U)Ordere d By: Christine Sanchez on 05-31-2023 pH (U) 5.5 [pH] 5.0-9.0 [facility] Ammonium urate crystals dete ction in stone by infrared spectroscopyOrdered By: Zac Muniz on 05-18-2023 Ammonium urate crystals Infrared spectroscopy Ql (Stone) N/A [facility] Calcium bilirubinate measure mentOrdered By: Zac Muniz on 05-18-2023 Calcium bilirubinate (Stone) [Mass fraction] N/A [facility] Calcium carbonate measuremen tOrdered By: Zac Muniz on 05-18-2023 Calcium carbonate (Stone) [Mass fraction] N/A [facility] Calcium hydrogen phosphate d ihydrate/Total in StoneOrdered By: Zac Muniz on 05-18-2023 Calcium hydrogen phosphate dihydrate (Stone) [Mass fraction] N/A [facility] Calcium oxalate dihydrate cr ystals detection in stone by infrared spectroscopyOrdered By: Zac Muniz on 05-18-2023 Calcium oxalate dihydrate crystals Infrared spectroscopy Ql (Stone) N/A [facility] Calcium oxalate monohydrate/ Total in StoneOrdered By: Zac Muniz on 05-18-2023 Calcium oxalate monohydrate (Stone) [Mass fraction] N/A [facility] Calcium phosphate measuremen tOrdered By: Zac Muniz on 05-18-2023 Calcium phosphate (Stone) [Mass fraction] N/A [facility] Calculus analysis interpreta tion in stoneOrdered By: Zac Muniz on 05-18-2023 Calculus analysis [Interp] N/A [facility] Calculus analysis [Interp] See comment . [facility] Comment on above: Physician questions regarding Calculi Analysis [facility] at: [phone]. Calculi report will follow via computer, mail or courierdelivery. Calculus analysis with calcu silva photography interpretation in stoneOrdered By: Zac Muniz on 05-18-2023 Calculus analysis with calculus photography [Interp] See comment . [facility] Comment on above: Photograph will foll ow under a separate cover Cellular material measuremen t in stone by estimated (mass/mass)Ordered By: Zac Muniz on 05-18-2023 Cellular material Est (Stone) [Mass/Mass] N/A [facility] Cholesterol/Total in StoneOr dered By: Zac Muniz on 05-18-2023 Cholesterol (Stone) [Mass fraction] N/A [facility] Composition of stoneOrdered By: Zac Muniz on 05-18-2023 Composition Nom (Stone) See comment . [facility] Comment on above: Percentage (Represen ts the % composition) Cystine measurementOrdered B y: Zac Muniz on 05-18-2023 Cystine (Unsp spec) [Moles/Vol] N/A [facility] Determination of color of ca lculusOrdered By: Zac Muniz on 05-18-2023 Color (Stone) Alexander . [facility] Hydroxyapatite [Energy Diffe rence] in 24 hour UrineOrdered By: Zac Muniz on 05-18-2023 Hydroxyapatite (24H U) [Energy diff] N/A [facility] Measurement of proportion of calculus composed of dried blood (mass/mass)Ordered By: Zac Muniz on 05-18-2023 Blood.dried (Stone) [Mass fraction] N/A [facility] Newberyite/Total in StoneOrd ered By: Zac Muniz on 05-18-2023 Newberyite (Stone) [Mass fraction] N/A [facility] No Panel InformationOrdered By: Zac Muniz on 05-18-2023 Stone 2,8 Dihydroxyadenine N/A [facility] Stone Analysis Disclaimer See comment . [facility] Comment on above: This test was develo ped and its performance characteristicsdetermined by [employer]. It has not been cleared or approvedby the Food and Drug Administration.Performed at: [address] [id number] Director: Jimmy Warner PhD, Phone: [phone] [place] [facility]ubinate N/A [facility] Stone Calcium Palmitate N/A [facility] Stone Calcium [facility] Carbonate Apatite N/A [facility] Stone Drug or Metabolite N/A [facility] Stone Other Constituent N/A [facility] Stone Xanthine N/A [facility] Size [Entitic volume] of Sto neOrdered By: Zac Muniz on 05-18-2023 Size (Stone) [Entitic vol] 4x4 mm . [facility] Comment on above: Multiple pieces rece ived. Dimensions of the largest piecereported. Sodium urate crystals detect ion in stone by infrared spectroscopyOrdered By: Zac Muniz on 05-18-2023 Sodium urate crystals Infrared spectroscopy Ql (Stone) N/A [facility] Specimen source subject [Typ e]Ordered By: Zac Muniz on 05-18-2023 Specimen source subject Nom See comment . [facility] Comment on above: Not provided Triamterene measurement in c alculusOrdered By: Zac Muniz on 05-18-2023 Triamterene (Stone) [Mass fraction] N/A [facility] Triple phosphate/Total in St oneOrdered By: Zac Muniz on 05-18-2023 Triple phosphate (Stone) [Mass fraction] N/A [facility] Uric acid dihydrate crystals detection in stone by infrared spectroscopyOrdered By: Zac Muniz on 05-18-2023 Urate dihydrate crystals Infrared spectroscopy Ql (Stone) 100 % . [facility] Urate dihydrate crystals Infrared spectroscopy Ql (Stone) N/A [facility] Tobacco Screening.on 023 Adult depression screening assessment No [facility] [employer]raj manda 250 DO Work Phone: Fall risk assessment a) No falls within the last year [facility] CasperLuz manda 250 DO Work Phone: Tobacco use status CPHS b) No [facility] [employer] manda 250 DO Work Phone: Automated erythrocytes count in urine sediment (number/area)Ordered By: Romel Orta on 05-07-2023 RBC Auto (Urine sed) [#/Area] 1-2 [HPF] 0-4 [facility] Automated leukocytes count i n urine sediment (number/area)Ordered By: Romel Orta on 05-07-2023 WBC Auto (Urine sed) [#/Area] 3-4 [HPF] 0-4 [facility] Basophils Auto (Bld) [#/Vol] Ordered By: Romel Orta on 05-07-2023 Basophils (Bld) [#/Vol] 0.1 10*3/uL 0.0-0.2 [facility] Basophils/100 WBC Auto (Bld) Ordered By: Romel Orta on 05-07-2023 Basophils/100 WBC (Bld) 0.6 % . [facility] Bilirubin Test strip Ql (U)O rdered By: Romel Orta on 05-07-2023 Bilirubin Ql (U) Negative Negative [facility] Calcium [Mass/volume] in Ser um or PlasmaOrdered By: Romel Orta on 05-07-2023 Calcium [Mass/Vol] 8.8 mg/dL 8.6-10.3 [facility] Carbon dioxide, total [Moles /volume] in Serum or PlasmaOrdered By: Romel Orta on 05-07-2023 CO2 [Moles/Vol] 20.8 mmol/L 21.0-31.0 [facility] Chloride [Moles/volume] in S ace or PlasmaOrdered By: Romel Orta on 06-17-2023 Chloride [Moles/Vol] 105 mmol/L 98-107 [facility] Color Auto (U)Ordered By: Bridgett nasreen Marivel on 05-07-2023 Color (U) Yellow Yellow [facility] Creatinine [Mass/volume] in Serum or PlasmaOrdered By: Romel Orta on 05-07-2023 Creatinine [Mass/Vol] 1.94 mg/dL 0.70-1.30 [facility] Eosinophils Auto (Bld) [#/Vo l]Ordered By: Romel Orta on 05-07-2023 Eosinophils (Bld) [#/Vol] 0.1 10*3/uL 0.0-0.45 [facility] Eosinophils/100 WBC Auto (Bl d)Ordered By: Romel Orta on 05-07-2023 Eosinophils/100 WBC (Bld) 1.1 % . [facility] Erythrocyte distribution wid th Auto (RBC) [Ratio]Ordered By: Romel Orta on 05-07-2023 Erythrocyte distribution width (RBC) [Ratio] 14.3 % 12.0-14.8 [facility] Glucose [Mass/volume] in Ser um or PlasmaOrdered By: Romel Orat on 05-07-2023 Glucose [Mass/Vol] 98 mg/dL 70-100 [facility] Comment on above: ADA recommended refe rence rangeRandom Glucose Reference Range is dependent on time and content of last meal. Glucose of more than 200 mg/dL in a nonstressed, ambulatory subject supports the diagnosis of Diabetes Mellitus. Hematocrit Auto (Bld) [Volum e fraction]Ordered By: Romel Orta on 05-07-2023 Hematocrit (Bld) [Volume fraction] 38.9 % 38.8-50.0 [facility] Hemoglobin [Mass/volume] in BloodOrdered By: Romel Orta on 05-07-2023 Hemoglobin (Bld) [Mass/Vol] 13.7 g/dL 13.0-17.0 [facility] Ketones Auto test strip (U) [Mass/Vol]Ordered By: Romel Orta on 05-07-2023 Ketones (U) [Mass/Vol] Trace Negative [facility] - UrinalysisOrder ed By: Romel Orta on 05-07-2023 Hyaline casts LM Ql (Urine sed) 0-8 [LPF] 0-8 [facility] Leukocytes [#/volume] correc nat for nucleated erythrocytes in Blood by Automated counOrdered By: Romel Orta on 05-07-2023 WBC corrected for nucl RBC Auto (Bld) [#/Vol] 9.9 10*3/uL 4.1-10.5 [facility] Lymphocytes Auto (Bld) [#/Vo l]Ordered By: Romel Orta on 05-07-2023 Lymphocytes (Bld) [#/Vol] 0.6 10*3/uL 1.00-4.8 [facility] Lymphocytes/100 WBC Auto (Bl d)Ordered By: Romel Orta on 05-07-2023 Lymphocytes/100 WBC (Bld) 6.2 % . [facility] MCH Auto (RBC) [Entitic mass ]Ordered By: Romel Orta on 05-07-2023 MCH (RBC) [Entitic mass] 31.3 pg 27.5-35.2 [facility] MCHC Auto (RBC) [Mass/Vol]Or dered By: Romel Orta on 05-07-2023 MCHC (RBC) [Mass/Vol] 35.2 g/dL 32.5-35.6 [facility] MCV Auto (RBC) [Entitic vol] Ordered By: Romel Orta on 05-07-2023 MCV (RBC) [Entitic vol] 88.9 fL 83.5-101 [facility] Monocyte distribution width [Entitic volume] in Blood by AutomatedOrdered By: Romel Orta on 05-07-2023 Monocyte distribution width Auto (Bld) [Entitic vol] 22.82 % 0.00-20.00 [facility] Comment on above: For adults in ED, MD W > 20.0 may be associated with a higher risk of sepsis during the first 12 hrs of hospital admission Monocytes Auto (Bld) [#/Vol] Ordered By: Romel Orta on 05-07-2023 Monocytes (Bld) [#/Vol] 1.5 10*3/uL 0.0-0.8 [facility] Monocytes/100 WBC Auto (Bld) Ordered By: Romel Orta on 05-07-2023 Monocytes/100 WBC (Bld) 15.4 % . [facility] Neutrophils Auto (Bld) [#/Vo l]Ordered By: Romel Orta on 05-07-2023 Neutrophils (Bld) [#/Vol] 7.6 10*3/uL 1.8-7.7 [facility] Neutrophils/100 WBC Auto (Bl d)Ordered By: Romel Orta on 05-07-2023 Neutrophils/100 WBC (Bld) 76.7 % . [facility] Nitrite Test strip Ql (U)Ord ered By: Romel Orta on 05-07-2023 Nitrite Ql (U) Negative Negative [facility] No Panel InformationOrdered By: Romel Orta on 05-07-2023 Estimated GFR (CKD-EPI) 37.476 mL/Min [facility] Creatinine Clearance (Chem 41.86 [facility] Nucleated erythrocytes [Pres ence] in Blood by Automated countOrdered By: Romel Orta on 05-07-2023 Nucleated RBC Auto Ql (Bld) 0.1 /100{WBC} 0-0.5 [facility] Platelet mean volume Auto (B ld) [Entitic vol]Ordered By: Romel Orta on 05-07-2023 Platelet mean volume (Bld) [Entitic vol] 8.3 fL 6.6-10.1 [facility] Platelets Auto (Bld) [#/Vol] Ordered By: Romel Orta on 05-07-2023 Platelets (Bld) [#/Vol] 193 10*3/uL 150-450 [facility] Potassium [Moles/volume] in Serum or PlasmaOrdered By: Romel Orta on 05-07-2023 Potassium [Moles/Vol] 4.2 mmol/L 3.5-5.1 [facility] Protein Auto test strip (U) [Mass/Vol]Ordered By: Romel Orta on 05-07-2023 Protein (U) [Mass/Vol] Negative Negative [facility] RBC Auto (Bld) [#/Vol]Ordere d By: Romel Orta on 05-07-2023 RBC (Bld) [#/Vol] 4.38 10*6/uL 3.90-5.60 [facility] Serum or plasma anion gap de terminationOrdered By: Romel Orta on 05-07-2023 Anion gap [Moles/Vol] 15.4 mmol/L 6.0-15.0 [facility] Sodium [Moles/volume] in Ser um or PlasmaOrdered By: Romel Orta on 05-07-2023 Sodium [Moles/Vol] 137 mmol/L 136-145 [facility] Specific gravity Auto test s trip (U) [Rel density]Ordered By: Romel Orta on 05-07-2023 Specific gravity (U) [Rel density] 1.028 1.001-1.03 0 [facility] Squamous epithelial cells de tection in urine sediment by light microscopyOrdered By: Romel Orta on 05-07-2023 Epithelial cells.squamous LM Ql (Urine sed) 0-1 [HPF] 0-2 [facility] Urea nitrogen [Mass/volume] in Serum or PlasmaOrdered By: Romel Orta on 05-07-2023 Urea nitrogen [Mass/Vol] 34 mg/dL 7-25 [facility] Urine bacteria detection by automated methodOrdered By: Romel Orta on 05-07-2023 Bacteria Auto Ql (U) None seen None Seen [facility] Urine clarity by refractomet ry automatedOrdered By: Romel Orta on 05-07-2023 Clarity Refractometry automated (U) Cloudy Clear [facility] Urine glucose measurement by automated test strip (mass/volume)Ordered By: Romel Orta on 05-07-2023 Glucose Auto test strip (U) [Mass/Vol] Normal mg/dL Normal [facility] Urine hemoglobin detection b y automated test stripOrdered By: Romel Orta on 05-07-2023 Hemoglobin Auto test strip Ql (U) Negative Negative [facility] Urine leukocyte esterase det ection by automated test stripOrdered By: Romel Orta on 05-07-2023 Leukocyte esterase Auto test strip Ql (U) Negative Negative [facility] Urine sediment crystal ident ification by light microscopyOrdered By: Romel Orta on 05-07-2023 Crystals LM Nom (Urine sed) N/A [facility] Urobilinogen Auto test strip (U) [Mass/Vol]Ordered By: Romel Orta on 05-07-2023 Urobilinogen (U) [Mass/Vol] Normal mg/dL Normal [facility] WBC Auto (Bld) [#/Vol]Ordere d By: Romel Orta on 05-07-2023 WBC (Bld) [#/Vol] 9.9 10*3/uL 4.1-10.5 [facility] pH Auto test strip (U)Ordere d By: Romel Orta on 05-07-2023 pH (U) 5.0 [pH] 5.0-9.0 [facility] Alanine aminotransferase [En zymatic activity/volume] in Serum or PlasmaOrdered By: Edenilson Reinoso on 05-03-2023 ALT [Catalytic activity/Vol] 44 U/L 7-52 [facility] Albumin [Mass/volume] in Ser um or Plasma by Bromocresol green (BCG) dye binding methoOrdered By: Edenilson Reinoso on 05-03-2023 Albumin BCG dye [Mass/Vol] 4.4 g/dL 3.5-5.7 [facility] Alkaline phosphatase [Enzyma tic activity/volume] in Serum or PlasmaOrdered By: Edenilson Reinoso on 05-03-2023 ALP [Catalytic activity/Vol] 79 U/L 34-104 [facility] Aspartate aminotransferase [ Enzymatic activity/volume] in Serum or PlasmaOrdered By: Edenilson Reinoso on 05-03-2023 AST [Catalytic activity/Vol] 28 U/L 13-39 [facility] Automated erythrocytes count in urine sediment (number/area)Ordered By: Edenilson Reinoso on 05-03-2023 RBC Auto (Urine sed) [#/Area] 10-19 [HPF] 0-4 [facility] Automated leukocytes count i n urine sediment (number/area)Ordered By: Edenilson Reinoso on 05-03-2023 WBC Auto (Urine sed) [#/Area] 0-1 [HPF] 0-4 [facility] Basophils Auto (Bld) [#/Vol] Ordered By: Edenilson Reinoso on 05-03-2023 Basophils (Bld) [#/Vol] 0.0 10*3/uL 0.0-0.2 [facility] Basophils/100 WBC Auto (Bld) Ordered By: Edenilson Reinoso on 05-03-2023 Basophils/100 WBC (Bld) 0.3 % . [facility] Bilirubin Test strip Ql (U)O rdered By: Edenilson Reinoso on 05-03-2023 Bilirubin Ql (U) Negative Negative [facility] Bilirubin.direct [Mass/volum e] in Serum or PlasmaOrdered By: Edenilson Reinoso on 05-03-2023 Bilirubin.direct [Mass/Vol] 0.20 mg/dL 0.03-0.18 [facility] Bilirubin.total [Mass/volume ] in Serum or PlasmaOrdered By: Edenilson Reinoso on 05-03-2023 Bilirubin [Mass/Vol] 1.0 mg/dL 0.3-1.0 [facility] Calcium [Mass/volume] in Ser um or PlasmaOrdered By: Edenilson Reinoso on 05-03-2023 Calcium [Mass/Vol] 9.2 mg/dL 8.6-10.3 [facility] Carbon dioxide, total [Moles /volume] in Serum or PlasmaOrdered By: Edenilson Reinoso on 05-03-2023 CO2 [Moles/Vol] 21.3 mmol/L 21.0-31.0 [facility] Chloride [Moles/volume] in S ace or PlasmaOrdered By: Edenilson Reinoso on 05-03-2023 Chloride [Moles/Vol] 105 mmol/L 98-107 [facility] Color Auto (U)Ordered By: Chen Reinoso on 05-03-2023 Color (U) Yellow Yellow [facility] Creatinine [Mass/volume] in Serum or PlasmaOrdered By: Edenilson Reinoso on 05-03-2023 Creatinine [Mass/Vol] 1.51 mg/dL 0.70-1.30 [facility] Eosinophils Auto (Bld) [#/Vo l]Ordered By: Edenilson Reinoso on 05-03-2023 Eosinophils (Bld) [#/Vol] 0.0 10*3/uL 0.0-0.45 [facility] Eosinophils/100 WBC Auto (Bl d)Ordered By: Edenilson Reinoso on 05-03-2023 Eosinophils/100 WBC (Bld) 0.3 % . [facility] Erythrocyte distribution wid th Auto (RBC) [Ratio]Ordered By: Edenilson Reinoso on 05-03-2023 Erythrocyte distribution width (RBC) [Ratio] 14.9 % 12.0-14.8 [facility] Globulin Calc (S) [Mass/Vol] Ordered By: Edenilson Reinoso on 05-03-2023 Globulin (S) [Mass/Vol] 2.3 g/dL [facility] Glucose [Mass/volume] in Ser um or PlasmaOrdered By: Edenilson Reinoso on 05-03-2023 Glucose [Mass/Vol] 107 mg/dL 70-100 [facility] Comment on above: ADA recommended refe rence rangeRandom Glucose Reference Range is dependent on time and content of last meal. Glucose of more than 200 mg/dL in a nonstressed, ambulatory subject supports the diagnosis of Diabetes Mellitus. Hematocrit Auto (Bld) [Volum e fraction]Ordered By: Edenilson Reinoso on 05-03-2023 Hematocrit (Bld) [Volume fraction] 44.5 % 38.8-50.0 [facility] Hemoglobin [Mass/volume] in BloodOrdered By: Edenilson Reinoso on 05-03-2023 Hemoglobin (Bld) [Mass/Vol] 15.7 g/dL 13.0-17.0 [facility] Ketones Auto test strip (U) [Mass/Vol]Ordered By: Edenilson Reinoso on 05-03-2023 Ketones (U) [Mass/Vol] Trace Negative [facility] - UrinalysisOrder ed By: Edenilson Reinoso on 05-03-2023 Hyaline casts LM Ql (Urine sed) 0-8 [LPF] 0-8 [facility] Leukocytes [#/volume] correc nat for nucleated erythrocytes in Blood by Automated counOrdered By: Edenilson Reinoso on 05-03-2023 WBC corrected for nucl RBC Auto (Bld) [#/Vol] 13.4 10*3/uL 4.1-10.5 [facility] Lipase [Enzymatic activity/v olume] in Serum or PlasmaOrdered By: Edenilson Reinoso on 05-03-2023 Lipase [Catalytic activity/Vol] 28.0 U/L 11.0-82.0 [facility] Lymphocytes Auto (Bld) [#/Vo l]Ordered By: Edenilson Reinoso on 05-03-2023 Lymphocytes (Bld) [#/Vol] 0.6 10*3/uL 1.00-4.8 [facility] Lymphocytes/100 WBC Auto (Bl d)Ordered By: Edenilson Reinoso on 05-03-2023 Lymphocytes/100 WBC (Bld) 4.3 % . [facility] MCH Auto (RBC) [Entitic mass ]Ordered By: Edenilson Reinoso on 05-03-2023 MCH (RBC) [Entitic mass] 31.1 pg 27.5-35.2 [facility] MCHC Auto (RBC) [Mass/Vol]Or dered By: Edenilson Reinoso on 05-03-2023 MCHC (RBC) [Mass/Vol] 35.4 g/dL 32.5-35.6 [facility] MCV Auto (RBC) [Entitic vol] Ordered By: Edenilson Reinoso on 05-03-2023 MCV (RBC) [Entitic vol] 87.9 fL 83.5-101 [facility] Monocyte distribution width [Entitic volume] in Blood by AutomatedOrdered By: Edenilson Reinoso on 05-03-2023 Monocyte distribution width Auto (Bld) [Entitic vol] 24.56 % 0.00-20.00 [facility] Comment on above: For adults in ED, MD W > 20.0 may be associated with a higher risk of sepsis during the first 12 hrs of hospital admission Monocytes Auto (Bld) [#/Vol] Ordered By: Edenilson Reinoso on 05-03-2023 Monocytes (Bld) [#/Vol] 1.5 10*3/uL 0.0-0.8 [facility] Monocytes/100 WBC Auto (Bld) Ordered By: Edenilson Reinoso on 05-03-2023 Monocytes/100 WBC (Bld) 11.0 % . [facility] Neutrophils Auto (Bld) [#/Vo l]Ordered By: Edenilson Reinoso on 05-03-2023 Neutrophils (Bld) [#/Vol] 11.3 10*3/uL 1.8-7.7 [facility] Neutrophils/100 WBC Auto (Bl d)Ordered By: Edenilson Reinoso on 05-03-2023 Neutrophils/100 WBC (Bld) 84.1 % . [facility] Nitrite Test strip Ql (U)Ord ered By: Edenilson Reinoso on 05-03-2023 Nitrite Ql (U) Negative Negative [facility] No Panel InformationOrdered By: Edenilson Reinoso on 05-03-2023 Estimated GFR (CKD-EPI) 50.623 mL/Min [facility] Creatinine Clearance (Chem 54.49 [facility] Nucleated erythrocytes [Pres ence] in Blood by Automated countOrdered By: Edenilson Reinoso on 05-03-2023 Nucleated RBC Auto Ql (Bld) 0.1 /100{WBC} 0-0.5 [facility] Platelet mean volume Auto (B ld) [Entitic vol]Ordered By: Edenilson Reinoso on 05-03-2023 Platelet mean volume (Bld) [Entitic vol] 8.4 fL 6.6-10.1 [facility] Platelets Auto (Bld) [#/Vol] Ordered By: Edenilson Reinoso on 05-03-2023 Platelets (Bld) [#/Vol] 185 10*3/uL 150-450 [facility] Potassium [Moles/volume] in Serum or PlasmaOrdered By: Edenilson Reinoso on 05-03-2023 Potassium [Moles/Vol] 4.1 mmol/L 3.5-5.1 [facility] Protein Auto test strip (U) [Mass/Vol]Ordered By: Edenilson Reinoso on 05-03-2023 Protein (U) [Mass/Vol] Trace mg/dL Negative [facility] Protein [Mass/volume] in Ser um or PlasmaOrdered By: Edenilson Reinoso on 05-03-2023 Protein [Mass/Vol] 6.7 g/dL 6.4-8.9 [facility] RBC Auto (Bld) [#/Vol]Ordere d By: Edenilson Reinoso on 05-03-2023 RBC (Bld) [#/Vol] 5.06 10*6/uL 3.90-5.60 [facility] Serum or plasma albumin/glob ulin mass ratioOrdered By: Edenilson Reinoso on 05-03-2023 Albumin/Globulin [Mass ratio] 1.9 {ratio} [facility] Serum or plasma anion gap de terminationOrdered By: Edenilson Reinoso on 05-03-2023 Anion gap [Moles/Vol] 13.8 mmol/L 6.0-15.0 [facility] Serum or plasma non-glucuron idated bilirubin measurement (mass/volume)Ordered By: Edenilson Reinoso on 05-03-2023 Bilirubin.indirect [Mass/Vol] 0.8 mg/dL [facility] Sodium [Moles/volume] in Ser um or PlasmaOrdered By: Edenilson Reinoso on 05-03-2023 Sodium [Moles/Vol] 136 mmol/L 136-145 [facility] Specific gravity Auto test s trip (U) [Rel density]Ordered By: Edenilson Reinoso on 05-03-2023 Specific gravity (U) [Rel density] 1.024 1.001-1.03 0 [facility] Squamous epithelial cells de tection in urine sediment by light microscopyOrdered By: Edenilson Reinoso on 05-03-2023 Epithelial cells.squamous LM Ql (Urine sed) None seen [HPF] 0-2 [facility] Urea nitrogen [Mass/volume] in Serum or PlasmaOrdered By: Edenilson Reinoso on 05-03-2023 Urea nitrogen [Mass/Vol] 22 mg/dL 7-25 [facility] Urine bacteria detection by automated methodOrdered By: Edenilson Reinoso on 05-03-2023 Bacteria Auto Ql (U) None seen None Seen [facility] Urine clarity by refractomet ry automatedOrdered By: Edenilson Reinoso on 05-03-2023 Clarity Refractometry automated (U) Clear Clear [facility] Urine glucose measurement by automated test strip (mass/volume)Ordered By: Edenilson Reinoso on 05-03-2023 Glucose Auto test strip (U) [Mass/Vol] Normal mg/dL Normal [facility] Urine hemoglobin detection b y automated test stripOrdered By: Edenilson Reinoso on 05-03-2023 Hemoglobin Auto test strip Ql (U) 1+ Negative [facility] Urine leukocyte esterase det ection by automated test stripOrdered By: Edenilson Reinoso on 05-03-2023 Leukocyte esterase Auto test strip Ql (U) 1+ Negative [facility] Urobilinogen Auto test strip (U) [Mass/Vol]Ordered By: Edenilson Reinoso on 05-03-2023 Urobilinogen (U) [Mass/Vol] Normal mg/dL Normal [facility] WBC Auto (Bld) [#/Vol]Ordere d By: Edenilson Reinoso on 05-03-2023 WBC (Bld) [#/Vol] 13.4 10*3/uL 4.1-10.5 [facility] pH Auto test strip (U)Ordere d By: Edenilson Reinoso on 05-03-2023 pH (U) 5.5 [pH] 5.0-9.0 [facility] Alanine aminotransferase [En zymatic activity/volume] in Serum or PlasmaOrdered By: Sascha Sutton on 04-08-2023 ALT [Catalytic activity/Vol] 33 U/L 7-52 [facility] Albumin [Mass/volume] in Ser um or Plasma by Bromocresol green (BCG) dye binding methoOrdered By: Sascha Sutton on 04-08-2023 Albumin BCG dye [Mass/Vol] 4.0 g/dL 3.5-5.7 [facility] Alkaline phosphatase [Enzyma tic activity/volume] in Serum or PlasmaOrdered By: Sascha Sutton on 04-08-2023 ALP [Catalytic activity/Vol] 82 U/L 34-104 [facility] Aspartate aminotransferase [ Enzymatic activity/volume] in Serum or PlasmaOrdered By: Sascha Sutton on 04-08-2023 AST [Catalytic activity/Vol] 19 U/L 13-39 [facility] Bilirubin.total [Mass/volume ] in Serum or PlasmaOrdered By: Sascha Sutton on 04-08-2023 Bilirubin [Mass/Vol] 0.8 mg/dL 0.3-1.0 [facility] Calcium [Mass/volume] in Ser um or PlasmaOrdered By: Sascha Sutton on 04-08-2023 Calcium [Mass/Vol] 8.8 mg/dL 8.6-10.3 [facility] Carbon dioxide, total [Moles /volume] in Serum or PlasmaOrdered By: Sascha Sutton on 04-08-2023 CO2 [Moles/Vol] 28.1 mmol/L 21.0-31.0 [facility] Chloride [Moles/volume] in S ace or PlasmaOrdered By: Sascha Sutton on 04-08-2023 Chloride [Moles/Vol] 107 mmol/L 98-107 [facility] Cholesterol [Mass/volume] in Serum or PlasmaOrdered By: Sascha Sutton on 04-08-2023 Cholesterol [Mass/Vol] 119 mg/dL 140-200 [facility] Comment on above: Chol less than 200 m g/dl low riskChol 201-239 mg/dl borderline riskChol 240 mg/dl and greater high risk Cholesterol in LDL Calc [Mas s/Vol]Ordered By: Sascha Sutton on 04-08-2023 Cholesterol in LDL [Mass/Vol] 55 mg/dL 0-100 [facility] Comment on above: LDL ATP III CLASSIFI CATIONLDL less than 100 mg/dL OptimalLDL 100-129 mg/dL Near or above optimalLDL 130-159 mg/dL Borderline highLDL 160-189 mg/dL HighLDL greater than 189 mg/dL Very high Cholesterol in VLDL Calc [Ma ss/Vol]Ordered By: Sascha Sutton on 04-08-2023 Cholesterol in VLDL [Mass/Vol] 25 mg/dL [facility] Creatinine [Mass/volume] in Serum or PlasmaOrdered By: Sascha Sutton 04-08-2023 Creatinine [Mass/Vol] 0.85 mg/dL 0.70-1.30 [facility] Globulin Calc (S) [Mass/Vol] Ordered By: Sascha Sutton 04-08-2023 Globulin (S) [Mass/Vol] 2.1 g/dL [facility] Glucose [Mass/volume] in Ser um or PlasmaOrdered By: Sascha Sutton 04-08-2023 Glucose [Mass/Vol] 85 mg/dL 70-100 [facility] Comment on above: ADA recommended refe rence rangeRandom Glucose Reference Range is dependent on time and content of last meal. Glucose of more than 200 mg/dL in a nonstressed, ambulatory subject supports the diagnosis of Diabetes Mellitus. No Panel InformationOrdered By: Sascha uStton on 04-08-2023 Estimated GFR (CKD-EPI) > 60.0 mL/Min [facility] Creatinine Clearance (Chem N/A [facility] Potassium [Moles/volume] in Serum or PlasmaOrdered By: Sascha Sutton on 04-08-2023 Potassium [Moles/Vol] 4.1 mmol/L 3.5-5.1 [facility] Prostate specific Ag [Mass/v olume] in Serum or PlasmaOrdered By: Sascha Sutton on 04-08-2023 Prostate specific Ag [Mass/Vol] 1.770 ng/mL 0.000-4.00 0 [facility] Protein [Mass/volume] in Ser um or PlasmaOrdered By: Sascha Sutton on 04-08-2023 Protein [Mass/Vol] 6.1 g/dL 6.4-8.9 [facility] Serum or plasma albumin/glob ulin mass ratioOrdered By: Sascha Sutton on 04-08-2023 Albumin/Globulin [Mass ratio] 1.9 {ratio} [facility] Serum or plasma anion gap de terminationOrdered By: Sascha Sutton on 04-08-2023 Anion gap [Moles/Vol] 9.0 mmol/L 6.0-15.0 [facility] Serum or plasma high density lipoprotein (HDL) cholesterol measurementOrdered By: Sascha Sutton 04-08-2023 Cholesterol in HDL [Mass/Vol] 39 mg/dL 29-71 [facility] Comment on above: HDL CHOL ATP-III CLA SSIFICATION Cardiovascular RiskHDL > or equal to 60 mg/dL LOWHDL < 40 mg/dL HIGH Serum or plasma total choles terol/high density lipoprotein (HDL) cholesterol mass ratOrdered By: Sascha Sutton on 04-08-2023 Cholesterol.total/Chol esterol in HDL [Mass ratio] 3.1 {ratio} <5.0 [facility] Sodium [Moles/volume] in Ser um or PlasmaOrdered By: Sascha Sutton on 04-08-2023 Sodium [Moles/Vol] 140 mmol/L 136-145 [facility] Triglyceride [Mass/volume] i n Serum or PlasmaOrdered By: Sascha Sutton on 04-08-2023 Triglyceride [Mass/Vol] 125 mg/dL 0-149 [facility] Comment on above: TRIG ATP III CLASSIF ICATIONTRIG less than 150 mg/dL NormalTRIG 150-199 mg/dL Borderline highTRIG 200-500 mg/dL High TRIG greater than 500 mg/dL Very highStandard traceable to the Center for Disease Conrtrol and Prevention (CDC) test method. Urea nitrogen [Mass/volume] in Serum or PlasmaOrdered By: Sascha Sutton on 04-08-2023 Urea nitrogen [Mass/Vol] 17 mg/dL 7-25 [facility] Activated partial thrombopla stin time (aPTT) in platelet poor plasma by coagulation aOrdered By: Melanie Trujillo on 03-31-2023 aPTT Coag (PPP) [Time] 39.0 s 25.1-36.5 [facility] Basophils Auto (Bld) [#/Vol] Ordered By: Melanie Trujillo on 03-31-2023 Basophils (Bld) [#/Vol] 0.0 10*3/uL 0.0-0.2 [facility] Basophils/100 WBC Auto (Bld) Ordered By: Melanie Trujillo on 03-31-2023 Basophils/100 WBC (Bld) 0.6 % . [facility] Carbon dioxide, total [Moles /volume] in Serum or PlasmaOrdered By: Melanie Trujillo on 03-31-2023 CO2 [Moles/Vol] 26.4 mmol/L 21.0-31.0 [facility] Chloride [Moles/volume] in S ace or PlasmaOrdered By: Melanie Trujillo on 03-31-2023 Chloride [Moles/Vol] 106 mmol/L 98-107 [facility] Cholesterol [Mass/volume] in Serum or PlasmaOrdered By: Melanie Trujillo on 03-31-2023 Cholesterol [Mass/Vol] 132 mg/dL 140-200 [facility] Comment on above: Chol less than 200 m g/dl low riskChol 201-239 mg/dl borderline riskChol 240 mg/dl and greater high risk Cholesterol in LDL Calc [Mas s/Vol]Ordered By: Melanie Trujillo on 03-31-2023 Cholesterol in LDL [Mass/Vol] 71 mg/dL 0-100 [facility] Comment on above: LDL ATP III CLASSIFI CATIONLDL less than 100 mg/dL OptimalLDL 100-129 mg/dL Near or above optimalLDL 130-159 mg/dL Borderline highLDL 160-189 mg/dL HighLDL greater than 189 mg/dL Very high Cholesterol in VLDL Calc [Ma ss/Vol]Ordered By: Melanie Trujillo on 03-31-2023 Cholesterol in VLDL [Mass/Vol] 21 mg/dL [facility] Creatinine [Mass/volume] in Serum or PlasmaOrdered By: Melanie Trujillo on 03-31-2023 Creatinine [Mass/Vol] 0.88 mg/dL 0.70-1.30 [facility] Eosinophils Auto (Bld) [#/Vo l]Ordered By: Melanie Trujillo on 03-31-2023 Eosinophils (Bld) [#/Vol] 0.1 10*3/uL 0.0-0.45 [facility] Eosinophils/100 WBC Auto (Bl d)Ordered By: Melanie Trujillo on 03-31-2023 Eosinophils/100 WBC (Bld) 1.6 % . [facility] Erythrocyte distribution wid th Auto (RBC) [Ratio]Ordered By: Melanie Trujillo on 03-31-2023 Erythrocyte distribution width (RBC) [Ratio] 14.5 % 12.0-14.8 [facility] Hematocrit Auto (Bld) [Volum e fraction]Ordered By: Melanie Trujillo on 03-31-2023 Hematocrit (Bld) [Volume fraction] 46.7 % 38.8-50.0 [facility] Hemoglobin [Mass/volume] in BloodOrdered By: Melanie Trujillo on 03-31-2023 Hemoglobin (Bld) [Mass/Vol] 16.0 g/dL 13.0-17.0 [facility] - Chemistry and C hemistry - challengeon 03-31-2023 Cholesterol [Mass/Vol] 132\S\132 below low threshold 140-200 -[facility] [address] DO Work Phone: Comment on above: Chol less than 200 m g/dl low risk Chol 201-239 mg/dl borderline risk Chol 240 mg/dl and greater high risk Cholesterol in LDL [Mass/Vol] 71\S\71 Normal 0-100 [facility] [address] DO Work Phone: Comment on above: LDL ATP III CLASSIFI CATION LDL less than 100 mg/dL Optimal LDL 100-129 mg/dL Near or above optimal LDL 130-159 mg/dL Borderline high LDL 160-189 mg/dL High LDL greater than 189 mg/dL Very high Laboratory - CoagulationOrde red By: Melanie Trujillo on 03-31-2023 PT Coag (PPP) [Time] 12.3 s 9.0-12.9 [facility] Leukocytes [#/volume] correc nat for nucleated erythrocytes in Blood by Automated counOrdered By: Melanie Trujillo on 03-31-2023 WBC corrected for nucl RBC Auto (Bld) [#/Vol] 5.7 10*3/uL 4.1-10.5 [facility] Lymphocytes Auto (Bld) [#/Vo l]Ordered By: Melanie Trujillo on 03-31-2023 Lymphocytes (Bld) [#/Vol] 0.8 10*3/uL 1.00-4.8 [facility] Lymphocytes/100 WBC Auto (Bl d)Ordered By: Melanie Trujillo on 03-31-2023 Lymphocytes/100 WBC (Bld) 13.8 % . [facility] MCH Auto (RBC) [Entitic mass ]Ordered By: Melanie Trujillo on 03-31-2023 MCH (RBC) [Entitic mass] 30.4 pg 27.5-35.2 [facility] MCHC Auto (RBC) [Mass/Vol]Or dered By: Melanie Trujillo on 03-31-2023 MCHC (RBC) [Mass/Vol] 34.2 g/dL 32.5-35.6 [facility] MCV Auto (RBC) [Entitic vol] Ordered By: Melanie Trujillo on 03-31-2023 MCV (RBC) [Entitic vol] 89.0 fL 83.5-101 [facility] Monocytes Auto (Bld) [#/Vol] Ordered By: Melanie Trujillo on 03-31-2023 Monocytes (Bld) [#/Vol] 0.8 10*3/uL 0.0-0.8 [facility] Monocytes/100 WBC Auto (Bld) Ordered By: Melanie Trujillo on 03-31-2023 Monocytes/100 WBC (Bld) 13.9 % . [facility] Neutrophils Auto (Bld) [#/Vo l]Ordered By: Melanie Trujillo on 03-31-2023 Neutrophils (Bld) [#/Vol] 4.0 10*3/uL 1.8-7.7 [facility] Neutrophils/100 WBC Auto (Bl d)Ordered By: Melanie Trujillo on 03-31-2023 Neutrophils/100 WBC (Bld) 70.1 % . [facility] No Panel InformationOrdered By: Melanie Trujillo on 03-31-2023 Estimated GFR (CKD-EPI) > 60.0 mL/Min [facility] Creatinine Clearance (Chem N/A [facility] No Panel Informationon 03-31 10.7\S\10.7 Normal 6.0-15.0 [facility] 250 DO Work Phone: 26.4\S\26.4 Normal 21.0-31.0 [facility] 250 DO Work Phone: 106\S\106 Normal 0-149 [facility] 250 DO Work Phone: Comment on above: TRIG ATP III CLASSIF ICATION TRIG less than 150 mg/dL Normal TRIG 150-199 mg/dL Borderline high TRIG 200-500 mg/dL High TRIG greater than 500 mg/dL Very high Standard traceable to the Center for Disease Conrtrol and Prevention (CDC) test method. 4.1\S\4.1 Normal 3.5-5.1 [facility] 250 DO Work Phone: 139\S\139 Normal 136-145 [facility] 250 DO Work Phone: 23\S\23 Normal 7-25 [facility] [employer]anda 250 DO Work Phone: > 60.0 Normal [facility] 250 DO Work Phone: 0.88\S\0.88 Normal 0.70-1.30 -[facility] [address] DO Work Phone: 3.3\S\3.3 Normal <5.0 -[facility] [address] DO Work Phone: Comment on above: PERFORMED BY:[facility] [place] [id number] MEDICAL DIRECTOROLMAN ALBARRAN M.D. 21\S\21 Normal -[facility] 250 DO Work Phone: 40\S\40 Normal 29-71 -[facility] [address] DO Work Phone: Comment on above: HDL CHOL ATP-III CLA SSIFICATION Cardiovascular Risk HDL > or equal to 60 mg/dL LOW HDL < 40 mg/dL HIGH 0.0\S\0.0 Normal 0.0-0.2 -[facility] [address] DO Work Phone: Comment on above: PERFORMED BY:[facility] [place], [place] [phone] MEDICAL DIRECTOROLMAN ALBARRAN M.D. 0.1\S\0.1 Normal 0-0.5 [facility] [address] DO Work Phone: 0.8\S\0.8 below low threshold 1.00-4.8 -[facility] 250 DO Work Phone: 4.0\S\4.0 Normal 1.8-7.7 [facility] DO Work Phone: 0.6\S\0.6 Normal . [facility] DO Work Phone: 1.6\S\1.6 Normal . [facility] DO Work Phone: 13.9\S\13.9 Normal . [facility] DO Work Phone: [phone] 13.8\S\13.8 Normal . [facility] DO Work Phone: [phone] 70.1\S\70.1 Normal . [facility] DO Work Phone: [phone] 8.4\S\8.4 Normal 6.6-10.1 [facility] DO Work Phone: [phone] 180\S\180 Normal 150-450 [facility] DO Work Phone: [phone] 14.5\S\14.5 Normal 12.0-14.8 [facility] DO Work Phone: [phone] 34.2\S\34.2 Normal 32.5-35.6 [facility] [address] DO Work Phone: [phone] 30.4\S\30.4 Normal 27.5-35.2 [facility] [address] DO Work Phone: [phone] 89.0\S\89.0 Normal 83.5-101 [facility] [address] DO Work Phone: [phone] 46.7\S\46.7 Normal 38.8-50.0 [facility] DO Work Phone: [phone] 16.0\S\16.0 Normal 13.0-17.0 [facility] DO Work Phone: [phone] 5.24\S\5.24 Normal 3.90-5.60 [facility] [address] DO Work Phone: [phone] 5.7\S\5.7 Normal 4.1-10.5 [facility] [address] DO Work Phone: [phone] 39.0\S\39.0 above high threshold 25.1-36.5 [facility] [address] DO Work Phone: Comment on above: PERFORMED BY:[facility] [place] [phone] MEDICAL DIRECTOROLMAN ALBARRAN M.D. 1.1\S\1.1 Normal [place] [address] DO Work Phone: Comment on above: INR [...] valves: 3 - 4.5 12.3\S\12.3 Normal 9.0-12.9 [place] [address] DO Work Phone: Nucleated erythrocytes [Pres ence] in Blood by Automated countOrdered By: Melanie Trujillo on 03-31-2023 Nucleated RBC Auto Ql (Bld) 0.1 /100{WBC} 0-0.5 [facility] Platelet mean volume Auto (B ld) [Entitic vol]Ordered By: Melanie Trujillo on 03-31-2023 Platelet mean volume (Bld) [Entitic vol] 8.4 fL 6.6-10.1 [facility] Platelet poor plasma interna tional normalized ratio (INR) by coagulation assay (relatOrdered By: Melanie Trujillo on 03-31-2023 INR Coag (PPP) [Relative time] 1.1 {INR} [facility] Comment on above: INR Therapeutic Rang e [...] 03-31-2023 Platelets (Bld) [#/Vol] 180 10*3/uL 150-450 [facility] Potassium [Moles/volume] in Serum or PlasmaOrdered By: Melanie Trujillo on 03-31-2023 Potassium [Moles/Vol] 4.1 mmol/L 3.5-5.1 [facility] RBC Auto (Bld) [#/Vol]Ordere d By: Melanie Trujillo on 03-31-2023 RBC (Bld) [#/Vol] 5.24 10*6/uL 3.90-5.60 [facility] Serum or plasma anion gap de terminationOrdered By: Melanie Trujillo on 03-31-2023 Anion gap [Moles/Vol] 10.7 mmol/L 6.0-15.0 [facility] Serum or plasma high density lipoprotein (HDL) cholesterol measurementOrdered By: Melanie Trujillo on 03-31-2023 Cholesterol in HDL [Mass/Vol] 40 mg/dL 29-71 [facility] Comment on above: HDL CHOL ATP-III CLA SSIFICATION Cardiovascular RiskHDL > or equal to 60 mg/dL LOWHDL < 40 mg/dL HIGH Serum or plasma total choles terol/high density lipoprotein (HDL) cholesterol mass ratOrdered By: Melanie Trujillo on 03-31-2023 Cholesterol.total/Chol esterol in HDL [Mass ratio] 3.3 {ratio} <5.0 [facility] Sodium [Moles/volume] in Ser um or PlasmaOrdered By: Melanie Trujillo on 03-31-2023 Sodium [Moles/Vol] 139 mmol/L 136-145 [facility] Triglyceride [Mass/volume] i n Serum or PlasmaOrdered By: Melanie Trujillo on 03-31-2023 Triglyceride [Mass/Vol] 106 mg/dL 0-149 [facility] Comment on above: TRIG ATP III CLASSIF ICATIONTRIG less than 150 mg/dL NormalTRIG 150-199 mg/dL Borderline highTRIG 200-500 mg/dL High TRIG greater than 500 mg/dL Very highStandard traceable to the Center for Disease Conrtrol and Prevention (CDC) test method. Urea nitrogen [Mass/volume] in Serum or PlasmaOrdered By: Melanie Trujillo on 03-31-2023 Urea nitrogen [Mass/Vol] 23 mg/dL 7 [facility] WBC Auto (Bld) [#/Vol]Ordere d By: Melanie Trujillo on 03-31-2023 WBC (Bld) [#/Vol] 5.7 10*3/uL 4.1-10.5 [facility] Office Visit (Cardiology)on 03-30-2023 Follow-up visit [...] and right neck [facility] that occurred [facility] this past Tuesday with subsequent stress imaging performed after he was admitted at [place] that was reportedly unremarkable. Patient has since [...] Allergies Medication (more content not included)... Normal [facility] Tobacco Screening.on 023 Adult depression screening assessment No [facility] 250 DO Work Phone: Fall risk assessment a) No falls within the last year [facility] 250 DO Work Phone: Tobacco use status CPHS b) No [facility] [employer] 250 DO Work Phone: ECHOCARDIO M/2D COMPLETEon 0 03-21-2023 ECHOCARDIO M/2D COMPLETE Patient: VALENTIN TORRE Exam Date: 03/21/2023 : 1955 Gender:M Ordering : SHAIKH Pee MULTANI . Admission #: [id number] Family : DR SASCHA SUTTON Order #: [id number] CLICK HERE TO VIEW EXAM ECHOCARDIOGRAM REPORT [...] Area (VTI): 3.04 cm2, 3.04 cm2 Deceleration Parker: 0.56 m/s2 Pressure Half-Time: 991.91 ms Peak [...] Huynh M.D. on 03/24/2023 at 12:21 Normal [facility] NM STRESS/REST MULTIon 03-21 NM STRESS/REST MULTI Patient: JANEL TRORE Exam Date: 03/21/2023 : 1955 Gender:M Ordering : SHAIKH Pee MULTANI . Admission #: [id number] Family : Order #: [id number] CLICK HERE TO VIEW EXAM RADIOLOGY REPORT [...] M.D. on 03/22/2023 at 11:30 Normal [facility] TROPONIN, HIGH SENSITIVITYon 03-21-2023 HSTROP 13.1 pg/mL Normal 4.0-76.1 [facility] Comment on above: Result Comment: CUT- OFF POINTS HAVE BEEN ESTABLISHED BASED ON THE FOURTH UNIVERSAL DEFINITIONS OF MYOCARDIAL INFARCTION. THE UPPER REFERENCE LIMIT (URL) OF TROPONIN, DEFINED THE 99TH PERCENTILE OF cTnI DISTRIBUTION IN A REFERENCE POPULATION, HAS BEEN CONFIRMED THE DECISION THRESHOLD FOR IA DIAGNOSIS. Performed By: #### H STROPN ####[facility] [id number] [place] [address]Dr. Jo De Dios BNPon 03-20-2023 Natriuretic peptide B (Bld) [Mass/Vol] 47.0 pg/mL Normal <=900.0 [facility] Comment on above: Performed By: #### B SALES MANAGEMENT INTERN, CMP, CMADM #### [facility] [address] [place] [address] [address] Jo De Dios CARDIAC YANETH ADMITon 023 CK [Catalytic activity/Vol] 149 U/L Normal 39-308 [facility] Comment on above: Performed By: #### B SALES MANAGEMENT INTERN, CMP, CMADM ####[facility] [id number] [place] [address]Dr. Jo De Dios CK.MB [Mass/Vol] 1.51 ng/mL Normal <=3.60 [facility] Comment on above: Performed By: #### B SALES MANAGEMENT INTERN, CMP, CMADM ####[facility] [id number] [place] [address]Dr. Jo De Dios HSTROP 14.8 pg/mL Normal 4.0-76.1 [facility] Comment on above: Result Comment: CUT- OFF POINTS HAVE BEEN ESTABLISHED BASED ON THE FOURTH UNIVERSAL DEFINITIONS OF MYOCARDIAL INFARCTION. THE UPPER REFERENCE LIMIT (URL) OF TROPONIN, DEFINED THE 99TH PERCENTILE OF cTnI DISTRIBUTION IN A REFERENCE POPULATION, HAS BEEN CONFIRMED THE DECISION THRESHOLD FOR IA DIAGNOSIS. Performed By: #### B SALES MANAGEMENT INTERN, CMP, CMADM ####[facility] [address] [place] [id number]. Jo De Dios RAAD 55 ng/mL Normal 16-96 [facility] Comment on above: Performed By: #### B SALES MANAGEMENT INTERN, CMP, CMADM ####[facility] [address] [place] [address]Dr. Jo De Dios CBC AUTO DIFFon 03-20-2023 BASO # 0.0 103/ul Normal 0.0-0.1 [facility] Comment on above: Performed By: #### C BC #### [facility] [address] [place] [address] [address] Jo De Dios Basophils/100 WBC (Bld) 0.7 % Normal 0.2-2.0 [facility] Comment on above: Performed By: #### C BC #### [facility] [address] [place] [address] [address] Jo De Dios EO # 0.1 103/ul Normal 0.0-0.7 [facility] Comment on above: Performed By: #### C BC #### [facility] [address] [place] [address] [address] Jo De Dios Eosinophils/100 WBC (Bld) 1.5 % Normal 0.9-7.0 [facility] Comment on above: Performed By: #### C BC #### [facility] [address] [place] [address] [address] Jo De Dios Erythrocyte distribution width (RBC) [Ratio] 14.3 % Normal 11.0-15.0 [facility] Comment on above: Performed By: #### C BC #### [facility] [address] [place] [address] Dr. Jo De Dios Hematocrit (Bld) [Volume fraction] 46.1 % Normal 42.0-54.0 [facility] Comment on above: Performed By: #### C BC #### [facility] [address] [place] [address] Dr. Jo De Dios Hemoglobin (Bld) [Mass/Vol] 15.9 g/dL Normal 14.0-18.0 [facility] Comment on above: Performed By: #### C BC #### [facility] [address] [place] [address] Dr. Jo De Dios IG # 0.03 10e3/ul Normal 0.00-0.03 [facility] Comment on above: Performed By: #### C BC #### [facility] [address] [place] [address] Dr. Jo De Dios IG % 0.5 % Normal 0.0-0.5 [facility] Comment on above: Performed By: #### C BC #### [facility] [address] [place] [address] Dr. Jo De Dios LYMPH # 0.8 103/ul Critically low 1.2-3.8 [facility] Comment on above: Performed By: #### C BC #### [facility] [address] [place] [address] Dr. Jo De Dios Lymphocytes/100 WBC (Bld) 12.6 % Critically low 20.5-60.0 [facility] Comment on above: Performed By: #### C BC #### [facility] [address] [place] [address] Dr. Jo De Dios MANUAL DIFF REQ NO Normal [facility] Comment on above: Performed By: #### C BC #### [facility] [address] [place] [address] Dr. Jo De Dios MCH (RBC) [Entitic mass] 30.1 pg Normal 25.9-34.0 [facility] Comment on above: Performed By: #### C BC #### [facility] [address] [place] [address] Dr. Jo De Dios MCHC (RBC) [Mass/Vol] 34.5 g/dL Normal 29.9-35.2 [facility] Comment on above: Performed By: #### C BC #### [facility] [address] [place] [address] [address] Jo De Dios MCV (RBC) [Entitic vol] 87.1 fL Normal 80.0-94.0 [facility] Comment on above: Performed By: #### C BC #### [facility] [address] [place] [address] [address] Jo De Dios MONO # 0.8 103/ul Normal 0.3-0.8 [facility] Comment on above: Performed By: #### C BC #### [facility] [address] [place] [address] [address] Jo De Dios Monocytes/100 WBC (Bld) 13.7 % Critically high 1.7-12.0 [facility] Comment on above: Performed By: #### C BC #### [facility] [address] [place] [address] [address] Jo De Dios NEUT # 4.4 103/ul Normal 1.4-6.5 [facility] Comment on above: Performed By: #### C BC #### [facility] [address] [place] [address] [address] Jo De Dios Neutrophils/100 WBC (Bld) 71.0 % Normal 43.0-75.0 [facility] Comment on above: Performed By: #### C BC #### [facility] [address] [place] [address] [address] Jo De Dios Platelet mean volume (Bld) [Entitic vol] 9.8 fL Normal 9.5-13.5 [facility] Comment on above: Performed By: #### C BC #### [facility] [address] [place] [address] [address] Jo De Dios PLT 179 103/ul Normal 150-450 [facility] Comment on above: Performed By: #### C BC #### [facility] [address] [place] [address] [address] Jo De Dios RBC 5.29 106/ul Normal 4.70-6.10 [facility] Comment on above: Performed By: #### C BC #### [facility] [address] [place], [place] [address] Dr. Jo De Dios WBC 6.1 103/ul Normal 4.0-11.0 [facility] Comment on above: Performed By: #### C BC #### [facility] [address] [place], [place] [address] Dr. Jo De Dios CTA CHEST WO [...] by: ROBERTA WOOD Date: 2023-03-20 16:10 Normal [facility] D-DIMERon 03-20-2023 D-DIMER 0.60 mg/L FEU Critically high <=0.59 [facility] Comment on above: Performed By: #### D DIM ####[facility] [address] [place], [place] [address]XtDr. Jo De Dios D-DIMER COMMENTS SEE BELOW Normal [facility] Comment on above: Result Comment: Incr eases [...] generalized hospitalization. Performed By: #### D DIM ####[facility] [id number] [place] [address]Dr. Jo De Dios ER URINE PROFILEon 3 Bilirubin Ql (U) Negative Normal NEGATIVE [facility] Comment on above: Performed By: #### E RUR #### [facility] [address] [place] [address] Dr. Jo De Dios Clarity (U) CLEAR Normal CLEAR [facility] Comment on above: Performed By: #### E RUR #### [facility] [address] [place] [address] Dr. Jo De Dios Color (U) LT. YELLOW Normal YELLOW [facility] [facility] Comment on above: Performed By: #### E RUR #### [facility] [address] [place] [address] Dr. Jo De Dios ERUAHD A micrscopic examina tion will be performed if indicated. Normal [facility] Comment on above: Performed By: #### E RUR #### [facility] [address] [place] [address] Dr. Jo De Dios Glucose Ql (U) Negative Normal NEGATIVE [facility] Comment on above: Performed By: #### E RUR #### [facility] [address] [place] [address] Dr. Jo De Dios Hemoglobin Ql (U) Negative Normal NEGATIVE [facility] Comment on above: Performed By: #### E RUR #### [facility] [address] [place] [address] Dr. Jo De Dios Ketones Ql (U) Negative Normal NEGATIVE [facility] Comment on above: Performed By: #### E RUR #### [facility] [address] [place] [address] Dr. Jo De Dios LEUKOCYTES Negative Normal NEGATIVE [facility] Comment on above: Performed By: #### E RUR #### [facility] [address] [place] [address] Dr. Jo De Dios Nitrite Ql (U) Negative Normal NEGATIVE [facility] Comment on above: Performed By: #### E RUR #### [facility] [address] [place] [address] Dr. Jo De Dios pH (U) 5.0 [pH] Normal 5-9 [facility] Comment on above: Performed By: #### E RUR #### [facility] [address] [place] [address] Dr. Jo De Dios SPEC GRAVITY 1.020 Normal 1.005-<=1. 025 [facility] Comment on above: Performed By: #### E RUR #### [facility] [address] [place] [address] Dr. Jo De Dios UA PROTEIN Negative Normal NEGATIVE/ TRACE [facility] Comment on above: Performed By: #### E RUR #### [facility] [address] [place] [address] Dr. Jo De Dios UR MICRO IND NOT INDICATED Normal [facility] Comment on above: Performed By: #### E RUR #### [facility] [address] [place] [address] Dr. Jo De Dios Urobilinogen Qn (U) 0.2 {Carrie'U}/dL Normal 0.2 - 1. 0 [facility] Comment on above: Performed By: #### E RUR #### [facility] [address] [place] [address] Dr. Jo De Dios GLYCOHEMOGLOBIN A1Con 2022 ADA RECOMMENDATION SEE BELOW Normal [facility] Comment on above: Result Comment: ADA RECOMMENDED LIMIT 4.0 - 6.0 ADA THERAPEUTIC TARGET < 7.0 ACTION SUGGESTED > 7.0 Performed By: #### A 1C #### [facility] [address] [place] [address] Dr. Jo De Dios Glucose [Mass/Vol] 103 mg/dL Normal [facility] Comment on above: Performed By: #### A 1C #### [facility] [address] [address] [address] Jo De Dios HbA1c (Bld) [Mass fraction] 5.2 % Normal 4.5-6.2 [facility] Comment on above: Performed By: #### A 1C #### [facility] [address] [address] [address] Jo De Dios LIPID PROFILEon 03-20-2023 CHOL-HDL RATIO NORM SEE BELOW Normal [facility] Comment on above: Result Comment: 3.3 - 4.4 LOW RISK 4.4 - 7.1 AVERAGE RISK 7.1 - 11.0 MODERATE RISK >11.0 HIGH RISK Performed By: #### L IPID #### [facility] [address] [address] [address] Jo De Dios Cholesterol [Mass/Vol] 132 mg/dL Normal <=200 [facility] Comment on above: Performed By: #### L IPID #### [facility] [address] [place] [address] Dr. Jo De Dios Cholesterol in HDL [Mass/Vol] 46 mg/dL Normal 40-60 [facility] Comment on above: Performed By: #### L IPID #### [facility] [address] [address] [address] Jo De Dios Cholesterol in LDL [Mass/Vol] 69.4 mg/dL Normal [facility] Comment on above: Performed By: #### L IPID #### [facility] [address] [address] [address] Jo De Dios Cholesterol.total/Chol esterol in HDL [Mass ratio] 2.9 {ratio} Normal [facility] Comment on above: Performed By: #### L IPID #### [facility] [id number] Jo De Dios HDL NORMAL > or = 60 mg/dl - LO W CARDIOVASCULAR RISK <40 mg/dl - HIGH CARDIOVASCULAR RISK Normal [facility] Comment on above: Performed By: #### L IPID #### [facility] [address] [address] [address] Jo De Dios LDL CALC NORMAL SEE BELOW Normal [facility] Comment on above: Result Comment: <100 mg/dl OPTIMAL 100 - 129 mg/dl NEAR OR ABOVE OPTIMAL 130 - 159 mg/dl BORDERLINE HIGH 160 - 189 mg/dl HIGH >190 mg/dl VERY HIGH Performed By: #### L IPID #### [facility] [address] [place] [address] Dr. Jo De Dios Triglyceride [Mass/Vol] 83 mg/dL Normal <=150 [facility] Comment on above: Performed By: #### L IPID #### [facility] [address] [address] [address] Jo De Dios VLDL CALC 16.6 mg/dL Normal [facility] Comment on above: Performed By: #### L IPID #### [facility] [address] [place] [address] Dr. Jo De Dios PROF 14(COMP METB)on 023 Albumin [Mass/Vol] 3.7 g/dL Normal 3.4-5.0 [facility] Comment on above: Performed By: #### B SALES MANAGEMENT INTERN, CMP, CMADM #### [facility] [address] [place] [address] Dr. Jo De Dios Albumin/Globulin [Mass ratio] 1.1 {ratio} Normal [facility] Comment on above: Performed By: #### B SALES MANAGEMENT INTERN, CMP, CMADM #### [facility] [address] [place] [address] Dr. Jo De Dios ALP [Catalytic activity/Vol] 96 U/L Normal 46-116 [facility] Comment on above: Performed By: #### B SALES MANAGEMENT INTERN, CMP, CMADM #### [facility] [address] [place] [address] Dr. Jo De Dios ALT [Catalytic activity/Vol] 41 U/L Normal 16-63 [facility] Comment on above: Performed By: #### B SALES MANAGEMENT INTERN, CMP, CMADM #### [facility] [address] [place] [address] Dr. Jo De Dios Anion gap [Moles/Vol] 11.2 mmol/L Normal [facility] Comment on above: Performed By: #### B SALES MANAGEMENT INTERN, CMP, CMADM #### [facility] [address] [address] [address] Jo De Dios AST [Catalytic activity/Vol] 25 U/L Normal 15-37 [facility] Comment on above: Performed By: #### B SALES MANAGEMENT INTERN, CMP, CMADM #### [facility] [address] [address] [address] Jo De Dios Bilirubin [Mass/Vol] 0.8 mg/dL Normal 0.2-1.0 [facility] Comment on above: Performed By: #### B SALES MANAGEMENT INTERN, CMP, CMADM #### [facility] [address] [address] [address] Jo De Dios Calcium [Mass/Vol] 8.8 mg/dL Normal 8.5-10.1 [facility] Comment on above: Performed By: #### B SALES MANAGEMENT INTERN, CMP, CMADM #### [facility] [address] [place] [address] Dr. Jo De Dios Chloride [Moles/Vol] 109 mmol/L Critically high 98-107 [facility] Comment on above: Performed By: #### B SALES MANAGEMENT INTERN, CMP, CMADM #### [facility] [address] [address] [address] Jo De Dios CO2 [Moles/Vol] 23.4 mmol/L Normal 21.0-32.0 [facility] Comment on above: Performed By: #### B SALES MANAGEMENT INTERN, CMP, CMADM #### [facility] [address] [address] [address] Jo De Dios Creatinine [Mass/Vol] 0.84 mg/dL Normal 0.70-1.30 [facility] Comment on above: Performed By: #### B SALES MANAGEMENT INTERN, CMP, CMADM #### [facility] [address] [address] [address] Jo De Dios EGFR-AF TUVALUAN >60 Normal >=60 [facility] Comment on above: Performed By: #### B SALES MANAGEMENT INTERN, CMP, CMADM #### [facility] [address] [address] [address] Jo De Dios EGFR-NON AF TUVALUAN >60 Normal >=60 [facility] Comment on above: Performed By: #### B SALES MANAGEMENT INTERN, CMP, CMADM #### [facility] [address] [address] [address] Jo De Dios Globulin (S) [Mass/Vol] 3.3 g/dL Normal [facility] Comment on above: Performed By: #### B SALES MANAGEMENT INTERN, CMP, CMADM #### [facility] [address] [place] [address] Dr. Jo De Dios Glucose [Mass/Vol] 96 mg/dL Normal 74-106 [facility] Comment on above: Performed By: #### B SALES MANAGEMENT INTERN, CMP, CMADM #### [facility] [address] [place] [address] Dr. Jo De Dios Potassium [Moles/Vol] 3.6 mmol/L Normal 3.5-5.1 [facility] Comment on above: Performed By: #### B SALES MANAGEMENT INTERN, CMP, CMADM #### [facility] [address] [place] [address] Dr. Jo De Dios Protein [Mass/Vol] 7.0 g/dL Normal 6.4-8.2 [facility] Comment on above: Performed By: #### B SALES MANAGEMENT INTERN, CMP, CMADM #### [facility] [address] [place] [address] Dr. Jo De Dios Sodium [Moles/Vol] 140 mmol/L Normal 136-145 [facility] Comment on above: Performed By: #### B SALES MANAGEMENT INTERN, CMP, CMADM #### [facility] [address] [place] [address] Dr. Jo De Dios Urea nitrogen [Mass/Vol] 21.0 mg/dL Critically high 7.0-18.0 [facility] Comment on above: Performed By: #### B SALES MANAGEMENT INTERN, CMP, CMADM #### [facility] [address] [place] [address] Dr. Jo De Dios Urea nitrogen/Creatinine [Mass ratio] 25.0 mg/mg Normal [facility] Comment on above: Performed By: #### B SALES MANAGEMENT INTERN, CMP, CMADM #### [facility] [address] [place] [address] Dr. Jo De Dios PROTIMEon 03-20-2023 INR Coag (PPP) [Relative time] 0.96 {INR} Normal [facility] Comment on above: Performed By: #### P T, PTT ####[facility] [id number] [address]Dr. Jo De Dios INR GUIDELINES SEE BELOW Normal [facility] Comment on above: Result Comment: BETSEY RED INR: 2.0 - 3.0 CONDITIONS NOT LISTED BELOW 2.5 - 3.5 FOR PROSTHETIC HEART VALVE REPLACEMENT 2.5 - 3.5 RECURRENT THROMBOSIS Performed By: #### P T, PTT ####[facility] [id number] [address]Dr. Jo De Dios PT Coag (PPP) [Time] 10.2 s Normal 9.0-11.6 [facility] Comment on above: Performed By: #### P T, PTT ####[facility] [id number] [place], [place] [address]Dr. Jo De Dios PTTon 03-20-2023 aPTT Coag (Bld) [Time] 30.0 s Normal 22.3-36.2 [facility] Comment on above: Performed By: #### P T, PTT ####[facility] [address] [place], [place] [address]Dr. Jo De Dios TROPONIN, HIGH SENSITIVITYon 03-20-2023 HSTROP 30.2 pg/mL Normal 4.0-76.1 [facility] Comment on above: Result Comment: CUT- OFF POINTS HAVE BEEN ESTABLISHED BASED ON THE FOURTH UNIVERSAL DEFINITIONS OF MYOCARDIAL INFARCTION. THE UPPER REFERENCE LIMIT (URL) OF TROPONIN, DEFINED THE 99TH PERCENTILE OF cTnI DISTRIBUTION IN A REFERENCE POPULATION, HAS BEEN CONFIRMED THE DECISION THRESHOLD FOR IA DIAGNOSIS. Performed By: #### H STROPN ####[facility] [address] [place], [place] [address]Dr. Jo De Dios XR CHEST 1 Von [...] GAVIN MINER Date: 2023-03-20 12:56 Normal [facility] Alanine aminotransferase [En zymatic activity/volume] in Serum or PlasmaOrdered By: Christine Sanchez on 01-31-2023 ALT [Catalytic activity/Vol] 34 U/L 7-52 [facility] Albumin [Mass/volume] in Ser um or Plasma by Bromocresol green (BCG) dye binding methoOrdered By: Christine Sanchez on 01-31-2023 Albumin BCG dye [Mass/Vol] 4.3 g/dL 3.5-5.7 [facility] Alkaline phosphatase [Enzyma tic activity/volume] in Serum or PlasmaOrdered By: Christine Sanchez on 01-31-2023 ALP [Catalytic activity/Vol] 70 U/L 34-104 [facility] Aspartate aminotransferase [ Enzymatic activity/volume] in Serum or PlasmaOrdered By: Christine Sanchez on 01-31-2023 AST [Catalytic activity/Vol] 23 U/L 13-39 [facility] Automated erythrocytes count in urine sediment (number/area)Ordered By: Christine Sanchez on 01-31-2023 RBC Auto (Urine sed) [#/Area] 1-2 [HPF] 0-4 [facility] Automated leukocytes count i n urine sediment (number/area)Ordered By: Christine Sanchez on 01-31-2023 WBC Auto (Urine sed) [#/Area] 1-2 [HPF] 0-4 [facility] Basophils Auto (Bld) [#/Vol] Ordered By: Christine Sanchez on 01-31-2023 Basophils (Bld) [#/Vol] 0.0 10*3/uL 0.0-0.2 [facility] Basophils/100 WBC Auto (Bld) Ordered By: Christine Sanchez on 01-31-2023 Basophils/100 WBC (Bld) 0.5 % . [facility] Bilirubin Test strip Ql (U)O rdered By: Christine Sanchez on 01-31-2023 Bilirubin Ql (U) Negative Negative [facility] Bilirubin.total [Mass/volume ] in Serum or PlasmaOrdered By: Christine Sanchez on 01-31-2023 Bilirubin [Mass/Vol] 0.8 mg/dL 0.3-1.0 [facility] Calcium [Mass/volume] in Ser um or PlasmaOrdered By: Christine Sanchez on 01-31-2023 Calcium [Mass/Vol] 8.9 mg/dL 8.6-10.3 [facility] Carbon dioxide, total [Moles /volume] in Serum or PlasmaOrdered By: Christine Sanchez on 01-31-2023 CO2 [Moles/Vol] 24.6 mmol/L 21.0-31.0 [facility] Chloride [Moles/volume] in S ace or PlasmaOrdered By: Christine Sanchez on 01-31-2023 Chloride [Moles/Vol] 108 mmol/L 98-107 [facility] Color Auto (U)Ordered By: Marianna Arellano on 01-31-2023 Color (U) Dark yellow Yellow [facility] Creatinine [Mass/volume] in Serum or PlasmaOrdered By: Christine Sanchez on 01-31-2023 Creatinine [Mass/Vol] 0.90 mg/dL 0.70-1.30 [facility] Eosinophils Auto (Bld) [#/Vo l]Ordered By: Christine Sanchez on 01-31-2023 Eosinophils (Bld) [#/Vol] 0.1 10*3/uL 0.0-0.45 [facility] Eosinophils/100 WBC Auto (Bl d)Ordered By: Christine Sanchez on 01-31-2023 Eosinophils/100 WBC (Bld) 1.2 % . [facility] Erythrocyte distribution wid th Auto (RBC) [Ratio]Ordered By: Christine Sanchez on 01-31-2023 Erythrocyte distribution width (RBC) [Ratio] 15.2 % 12.0-14.8 [facility] Erythrocyte sedimentation ra te by Photometric methodOrdered By: Christine Sanchez on 01-31-2023 ESR Photometric method (Bld) [Velocity] 3 mm/hr 0-19 [facility] Globulin Calc (S) [Mass/Vol] Ordered By: Christine Sanchez on 01-31-2023 Globulin (S) [Mass/Vol] 1.9 g/dL [facility] Glucose [Mass/volume] in Ser um or PlasmaOrdered By: Christine Sanchez on 01-31-2023 Glucose [Mass/Vol] 131 mg/dL 74-109 [facility] Comment on above: ADA recommended refe rence rangeRandom Glucose Reference Range is dependent on time and content of last meal. Glucose of more than 200 mg/dL in a nonstressed, ambulatory subject supports the diagnosis of Diabetes Mellitus. Hematocrit Auto (Bld) [Volum e fraction]Ordered By: Christine Sanchez on 01-31-2023 Hematocrit (Bld) [Volume fraction] 45.2 % 38.8-50.0 [facility] Hemoglobin [Mass/volume] in BloodOrdered By: Christine Sanchez on 01-31-2023 Hemoglobin (Bld) [Mass/Vol] 15.4 g/dL 13.0-17.0 [facility] Ketones Auto test strip (U) [Mass/Vol]Ordered By: Christine Sanchez on 01-31-2023 Ketones (U) [Mass/Vol] Trace Negative [facility] - Chemistry and C hemistry - challengeOrdered By: Christine Sanchez on 01-31-2023 GFR/1.73 sq M.predicted MDRD (S/P/Bld) [Vol rate/Area] mL/min/{1.73_m2} [facility] - UrinalysisOrder ed By: Christine Sanchez on 01-31-2023 Hyaline casts LM Ql (Urine sed) 0-8 [LPF] 0-8 [facility] Leukocytes [#/volume] correc nat for nucleated erythrocytes in Blood by Automated counOrdered By: Christine Sanchez on 01-31-2023 WBC corrected for nucl RBC Auto (Bld) [#/Vol] 4.5 10*3/uL 4.1-10.5 [facility] Lymphocytes Auto (Bld) [#/Vo l]Ordered By: Christine Sanchez on 01-31-2023 Lymphocytes (Bld) [#/Vol] 0.7 10*3/uL 1.00-4.8 [facility] Lymphocytes/100 WBC Auto (Bl d)Ordered By: Christine Sanchez on 01-31-2023 Lymphocytes/100 WBC (Bld) 15.3 % . [facility] MCH Auto (RBC) [Entitic mass ]Ordered By: Christine Sanchez on 01-31-2023 MCH (RBC) [Entitic mass] 30.4 pg 27.5-35.2 [facility] MCHC Auto (RBC) [Mass/Vol]Or dered By: Christine Sanchez on 01-31-2023 MCHC (RBC) [Mass/Vol] 34.1 g/dL 32.5-35.6 [facility] MCV Auto (RBC) [Entitic vol] Ordered By: Christine Sanchez on 01-31-2023 MCV (RBC) [Entitic vol] 89.0 fL 83.5-101 [facility] Monocytes Auto (Bld) [#/Vol] Ordered By: Christine Sanchez on 01-31-2023 Monocytes (Bld) [#/Vol] 0.4 10*3/uL 0.0-0.8 [facility] Monocytes/100 WBC Auto (Bld) Ordered By: Christine Sanchez on 01-31-2023 Monocytes/100 WBC (Bld) 9.0 % . [facility] Neutrophils Auto (Bld) [#/Vo l]Ordered By: Christine Sanchez on 01-31-2023 Neutrophils (Bld) [#/Vol] 3.3 10*3/uL 1.8-7.7 [facility] Neutrophils/100 WBC Auto (Bl d)Ordered By: Christine Sanchez on 01-31-2023 Neutrophils/100 WBC (Bld) 74.0 % . [facility] Nitrite Test strip Ql (U)Ord ered By: Christine Sanchez on 01-31-2023 Nitrite Ql (U) Negative Negative [facility] No Panel InformationOrdered By: Christine Sanchez on 01-31-2023 Pharmacy Creatinine Clearance (Chem N/A [facility] Total Complement (CH50) >60 U/mL >41 [facility] Comment on above: Age Male Female 3 [...] to determine out of range values.Performed at: [address] [id number] Director: Richy Ardon PhD, Phone: [phone] Nucleated erythrocytes [Pres ence] in Blood by Automated countOrdered By: Christine Sanchez on 01-31-2023 Nucleated RBC Auto Ql (Bld) 0.3 /100{WBC} 0-0.5 [facility] Platelet mean volume Auto (B ld) [Entitic vol]Ordered By: Christine Sanchez on 01-31-2023 Platelet mean volume (Bld) [Entitic vol] 8.5 fL 6.6-10.1 [facility] Platelets Auto (Bld) [#/Vol] Ordered By: Christine Sanchez on 01-31-2023 Platelets (Bld) [#/Vol] 163 10*3/uL 150-450 [facility] Potassium [Moles/volume] in Serum or PlasmaOrdered By: Christine Sanchez on 01-31-2023 Potassium [Moles/Vol] 3.7 mmol/L 3.5-5.1 [facility] Protein Auto test strip (U) [Mass/Vol]Ordered By: Christine Sanchez on 01-31-2023 Protein (U) [Mass/Vol] Trace mg/dL Negative [facility] Protein [Mass/volume] in Ser um or PlasmaOrdered By: Christine Sanchez on 01-31-2023 Protein [Mass/Vol] 6.2 g/dL 6.4-8.9 [facility] RBC Auto (Bld) [#/Vol]Ordere d By: Christine Sanchez on 01-31-2023 RBC (Bld) [#/Vol] 5.08 10*6/uL 3.90-5.60 [facility] Serum or plasma albumin/glob ulin mass ratioOrdered By: Christine Sanchez on 01-31-2023 Albumin/Globulin [Mass ratio] 2.3 {ratio} [facility] Serum or plasma anion gap de terminationOrdered By: Christine Sanchez on 01-31-2023 Anion gap [Moles/Vol] 11.1 mmol/L 6.0-15.0 [facility] Serum or plasma complement C 3 measurement (mass/volume)Ordered By: Christine Sanchez on 01-31-2023 Complement C3 [Mass/Vol] 124 mg/dL 82-167 [facility] Comment on above: Performed at: [address] Director: Richy Ardon PhD, Phone: [phone] Serum or plasma complement C 4 measurement (mass/volume)Ordered By: Christine Sancehz on 01-31-2023 Complement C4 [Mass/Vol] 16 mg/dL 12-38 [facility] Sodium [Moles/volume] in Ser um or PlasmaOrdered By: Christine Sanchez on 01-31-2023 Sodium [Moles/Vol] 140 mmol/L 136-145 [facility] Specific gravity Auto test s trip (U) [Rel density]Ordered By: Christine Sanchez on 01-31-2023 Specific gravity (U) [Rel density] 1.028 1.001-1.03 0 [facility] Squamous epithelial cells de tection in urine sediment by light microscopyOrdered By: Christine Sanchez on 01-31-2023 Epithelial cells.squamous LM Ql (Urine sed) 0-1 [HPF] 0-2 [facility] Urea nitrogen [Mass/volume] in Serum or PlasmaOrdered By: Christine Sanchez on 01-31-2023 Urea nitrogen [Mass/Vol] 23 mg/dL 7-25 [facility] Urine bacteria detection by automated methodOrdered By: Christine Sanchez on 01-31-2023 Bacteria Auto Ql (U) None seen None Seen [facility] Urine clarity by refractomet ry automatedOrdered By: Christine Sanchez on 01-31-2023 Clarity Refractometry automated (U) Turbid Clear [facility] Urine glucose measurement by automated test strip (mass/volume)Ordered By: Christine Sanchez on 01-31-2023 Glucose Auto test strip (U) [Mass/Vol] Normal mg/dL Normal [facility] Urine hemoglobin detection b y automated test stripOrdered By: Christine Sanchez on 01-31-2023 Hemoglobin Auto test strip Ql (U) Negative Negative [facility] Urine leukocyte esterase det ection by automated test stripOrdered By: Christine Sanchez on 01-31-2023 Leukocyte esterase Auto test strip Ql (U) 1+ Negative [facility] Urobilinogen Auto test strip (U) [Mass/Vol]Ordered By: Christine Sanchez on 01-31-2023 Urobilinogen (U) [Mass/Vol] Normal mg/dL Normal [facility] WBC Auto (Bld) [#/Vol]Ordere d By: Christine Sanchez on 01-31-2023 WBC (Bld) [#/Vol] 4.5 10*3/uL 4.1-10.5 [facility] pH Auto test strip (U)Ordere d By: Christine Sanchez on 01-31-2023 pH (U) 5.0 [pH] 5.0-9.0 [facility] Automated erythrocytes count in urine sediment (number/area)Ordered By: Christine Sanchez on 10-26-2022 RBC Auto (Urine sed) [#/Area] 0-1 [HPF] 0-4 [facility] Automated leukocytes count i n urine sediment (number/area)Ordered By: Christine Sanchez on 10-26-2022 WBC Auto (Urine sed) [#/Area] 0-1 [HPF] 0-4 [facility] Basophils Auto (Bld) [#/Vol] Ordered By: Christine Sanchez on 10-26-2022 Basophils (Bld) [#/Vol] 0.0 10*3/uL 0.0-0.2 [facility] Basophils/100 WBC Auto (Bld) Ordered By: Christine Sanchez on 10-26-2022 Basophils/100 WBC (Bld) 0.6 % . [facility] Bilirubin Test strip Ql (U)O rdered By: Christine Sanchez on 10-26-2022 Bilirubin Ql (U) Negative Negative [facility] Body fluid albumin measureme nt (mass/volume)Ordered By: Christine Snachez on 10-26-2022 Albumin (Body fld) [Mass/Vol] 4.0 g/dL 3.2-5.5 [facility] Color Auto (U)Ordered By: Marianna Arellano on 10-26-2022 Color (U) Yellow Yellow [facility] Creatinine and Glomerular fi ltration rate.predicted panel (S/P/Bld)Ordered By: Christine Sanchez on 10-26-2022 Creatinine [Mass/Vol] 0.89 mg/dL 0.64-1.27 [facility] Eosinophils Auto (Bld) [#/Vo l]Ordered By: Christine Sanchez on 10-26-2022 Eosinophils (Bld) [#/Vol] 0.1 10*3/uL 0.0-0.45 [facility] Eosinophils/100 WBC Auto (Bl d)Ordered By: Christine Sanchez on 10-26-2022 Eosinophils/100 WBC (Bld) 1.9 % . [facility] Erythrocyte distribution wid th Auto (RBC) [Ratio]Ordered By: Christine Sanchez on 10-26-2022 Erythrocyte distribution width (RBC) [Ratio] 14.7 % 12.0-14.8 [facility] Erythrocyte sedimentation ra te by Photometric methodOrdered By: Christine Sanchez on 10-26-2022 ESR Photometric method (Bld) [Velocity] 6 mm/hr 0-19 [facility] Estimated glomerular filtrat ion rate (GFR) non- AmericanOrdered By: Christine Sanchez on 10-26-2022 GFR/1.73 sq M.predicted among non-blacks MDRD (S/P/Bld) [Vol rate/Area] > 60 mL/Min [facility] Globulin Calc (S) [Mass/Vol] Ordered By: Christine Sanchez on 10-26-2022 Globulin (S) [Mass/Vol] 2.2 g/dL [facility] Hematocrit Auto (Bld) [Volum e fraction]Ordered By: Christine Sanchez on 10-26-2022 Hematocrit (Bld) [Volume fraction] 45.5 % 38.8-50.0 [facility] Hemoglobin [Mass/volume] in BloodOrdered By: Christine Sanchez on 10-26-2022 Hemoglobin (Bld) [Mass/Vol] 15.5 g/dL 13.0-17.0 [facility] Ketones Auto test strip (U) [Mass/Vol]Ordered By: Christine Sanchez on 10-26-2022 Ketones (U) [Mass/Vol] Trace Negative [facility] - UrinalysisOrder ed By: Christine Sanchez on 10-26-2022 Hyaline casts LM Ql (Urine sed) 0-8 [LPF] 0-8 [facility] Leukocytes [#/volume] correc nat for nucleated erythrocytes in Blood by Automated counOrdered By: Christine Sanchez on 10-26-2022 WBC corrected for nucl RBC Auto (Bld) [#/Vol] 4.7 10*3/uL 4.1-10.5 [facility] Lymphocytes Auto (Bld) [#/Vo l]Ordered By: Christine Sanchez on 10-26-2022 Lymphocytes (Bld) [#/Vol] 0.8 10*3/uL 1.00-4.8 [facility] Lymphocytes/100 WBC Auto (Bl d)Ordered By: Christine Sanchez on 10-26-2022 Lymphocytes/100 WBC (Bld) 16.8 % . [facility] MCH Auto (RBC) [Entitic mass ]Ordered By: Christine Sanchez on 10-26-2022 MCH (RBC) [Entitic mass] 30.4 pg 27.5-35.2 [facility] MCHC Auto (RBC) [Mass/Vol]Or dered By: Christine Sanchez on 10-26-2022 MCHC (RBC) [Mass/Vol] 33.9 g/dL 32.5-35.6 [facility] MCV Auto (RBC) [Entitic vol] Ordered By: Christine Sanchez on 10-26-2022 MCV (RBC) [Entitic vol] 89.6 fL 83.5-101 [facility] Monocytes Auto (Bld) [#/Vol] Ordered By: Christine Sanchez on 10-26-2022 Monocytes (Bld) [#/Vol] 0.6 10*3/uL 0.0-0.8 [facility] Monocytes/100 WBC Auto (Bld) Ordered By: Christine Sanchez on 10-26-2022 Monocytes/100 WBC (Bld) 12.8 % . [facility] Neutrophils Auto (Bld) [#/Vo l]Ordered By: Christine Sanchez on 10-26-2022 Neutrophils (Bld) [#/Vol] 3.2 10*3/uL 1.8-7.7 [facility] Neutrophils/100 WBC Auto (Bl d)Ordered By: Christine Sanchez on 10-26-2022 Neutrophils/100 WBC (Bld) 67.9 % . [facility] Nitrite Test strip Ql (U)Ord ered By: Christine Sanchez on 10-26-2022 Nitrite Ql (U) Negative Negative [facility] No Panel InformationOrdered By: Christine Sanchez on 10-26-2022 Estimated GFR () > 60 mL/Min [facility] Comment on above: GFR estimated refere nce range: According to KDOQI guidelines, <60 ml/min/1.73m2 is sufficient to diagnose a patient with chronic kidney disease. Pharmacy Creatinine Clearance (Chem N/A [facility] Nucleated erythrocytes [Pres ence] in Blood by Automated countOrdered By: Christine Sanchez on 10-26-2022 Nucleated RBC Auto Ql (Bld) 0.3 /100{WBC} 0-0.5 [facility] Platelet mean volume Auto (B ld) [Entitic vol]Ordered By: Christine Sanchez on 10-26-2022 Platelet mean volume (Bld) [Entitic vol] 8.3 fL 6.6-10.1 [facility] Platelets Auto (Bld) [#/Vol] Ordered By: Christine Sanchez on 10-26-2022 Platelets (Bld) [#/Vol] 203 10*3/uL 150-450 [facility] Protein Auto test strip (U) [Mass/Vol]Ordered By: Christine Sanchez on 10-26-2022 Protein (U) [Mass/Vol] Negative Negative [facility] Protein [Mass/volume] in Ser um or PlasmaOrdered By: Christine Sanchez on 10-26-2022 Protein [Mass/Vol] 6.2 g/dL 6.1-7.9 [facility] RBC Auto (Bld) [#/Vol]Ordere d By: Christine Sanchez on 10-26-2022 RBC (Bld) [#/Vol] 5.08 10*6/uL 3.90-5.60 [facility] Serum or plasma alanine calvert otransferase measurement without P-5'-P (enzymatic activiOrdered By: Christine Sanchez on 10-26-2022 ALT No additional P-5'-P [Catalytic activity/Vol] 40 U/L 10-60 [facility] Serum or plasma albumin/glob ulin mass ratioOrdered By: Christine Sanchez on 10-26-2022 Albumin/Globulin [Mass ratio] 1.8 {ratio} [facility] Serum or plasma alkaline kelsie sphatase measurement (enzymatic activity/volume)Ordered By: Christine Sanchez on 10-26-2022 ALP [Catalytic activity/Vol] 82 U/L 32-92 [facility] Serum or plasma anion gap de terminationOrdered By: Christine Sanchez on 10-26-2022 Anion gap [Moles/Vol] 16.9 mmol/L 6.0-15.0 [facility] Serum or plasma aspartate am inotransferase measurement (enzymatic activity/volume)Ordered By: Christine Sanchez on 10-26-2022 AST [Catalytic activity/Vol] 24 U/L 10-42 [facility] Serum or plasma calcium ophelia urement (mass/volume)Ordered By: Christine Sanchez on 10-26-2022 Calcium [Mass/Vol] 9.6 mg/dL 8.2-10.2 [facility] Serum or plasma chloride arelis surement (moles/volume)Ordered By: Christine Sanchez on 10-26-2022 Chloride [Moles/Vol] 102 mmol/L 95-114 [facility] Serum or plasma glucose ophelia urement (mass/volume)Ordered By: Christine Sanchez on 10-26-2022 Glucose [Mass/Vol] 105 mg/dL 70-100 [facility] Comment on above: ADA recommended refe rence rangeRandom Glucose Reference Range is dependent on time and content of last meal. Glucose of more than 200 mg/dL in a nonstressed, ambulatory subject supports the diagnosis of Diabetes Mellitus. Serum or plasma potassium me asurement (moles/volume)Ordered By: Christine Sanchez on 10-26-2022 Potassium [Moles/Vol] 4.1 mmol/L 3.5-5.1 [facility] Serum or plasma sodium measu rement (moles/volume)Ordered By: Christine Sanchez on 10-26-2022 Sodium [Moles/Vol] 136 mmol/L 136-146 [facility] Serum or plasma total biliru bin measurement (mass/volume)Ordered By: Christine Sanchez on 10-26-2022 Bilirubin [Mass/Vol] 0.8 mg/dL 0.3-1.2 [facility] Serum or plasma total carbon dioxide measurement (moles/volume)Ordered By: Christine Sanchez on 10-26-2022 CO2 [Moles/Vol] 21.2 mmol/L 22.0-30.0 [facility] Serum or plasma urea nitroge n measurement (mass/volume)Ordered By: Christine Sanchez on 10-26-2022 Urea nitrogen [Mass/Vol] 16 mg/dL 9-23 [facility] Specific gravity Auto test s trip (U) [Rel density]Ordered By: Christine Sanchez on 10-26-2022 Specific gravity (U) [Rel density] 1.024 1.001-1.03 0 [facility] Squamous epithelial cells de tection in urine sediment by light microscopyOrdered By: Christine Sanchez on 10-26-2022 Epithelial cells.squamous LM Ql (Urine sed) None seen [HPF] 0-2 [facility] Urine bacteria detection by automated methodOrdered By: Christine Sanchez on 10-26-2022 Bacteria Auto Ql (U) None seen None Seen [facility] Urine clarity by refractomet ry automatedOrdered By: Christine Sanchez on 10-26-2022 Clarity Refractometry automated (U) Clear Clear [facility] Urine glucose measurement by automated test strip (mass/volume)Ordered By: Christine Sanchez on 10-26-2022 Glucose Auto test strip (U) [Mass/Vol] Normal mg/dL Normal [facility] Urine hemoglobin detection b y automated test stripOrdered By: Christine Sanchez on 10-26-2022 Hemoglobin Auto test strip Ql (U) Negative Negative [facility] Urine leukocyte esterase det ection by automated test stripOrdered By: Christine Sanchez on 10-26-2022 Leukocyte esterase Auto test strip Ql (U) Negative Negative [facility] Urobilinogen Auto test strip (U) [Mass/Vol]Ordered By: Christine Sanchez on 10-26-2022 Urobilinogen (U) [Mass/Vol] Normal mg/dL Normal [facility] WBC Auto (Bld) [#/Vol]Ordere d By: Christine Sanchez on 10-26-2022 WBC (Bld) [#/Vol] 4.7 10*3/uL 4.1-10.5 [facility] pH Auto test strip (U)Ordere d By: Christine Sanchez on 10-26-2022 pH (U) 5.5 [pH] 5.0-9.0 [facility] Automated erythrocytes count in urine sediment (number/area)Ordered By: Christine Sanchez on 07-21-2022 RBC Auto (Urine sed) [#/Area] 0-1 [HPF] 0-4 [facility] Automated leukocytes count i n urine sediment (number/area)Ordered By: Christine Sanchez on 07-21-2022 WBC Auto (Urine sed) [#/Area] 0-1 [HPF] 0-4 [facility] Basophils Auto (Bld) [#/Vol] Ordered By: Christine Sanchez on 07-21-2022 Basophils (Bld) [#/Vol] 0.0 10*3/uL 0.0-0.2 [facility] Basophils/100 WBC Auto (Bld) Ordered By: Christine Sanchez on 07-21-2022 Basophils/100 WBC (Bld) 0.6 % . [facility] Bilirubin Test strip Ql (U)O rdered By: Christine Sanchez on 07-21-2022 Bilirubin Ql (U) Negative Negative [facility] Body fluid albumin measureme nt (mass/volume)Ordered By: Christine Sanchez on 07-21-2022 Albumin (Body fld) [Mass/Vol] 3.9 g/dL 3.2-5.5 [facility] Color Auto (U)Ordered By: Marianna Arellano on 07-21-2022 Color (U) Yellow Yellow [facility] Creatinine and Glomerular fi ltration rate.predicted panel (S/P/Bld)Ordered By: Christine Sanchez on 07-21-2022 Creatinine [Mass/Vol] 0.91 mg/dL 0.64-1.27 [facility] Eosinophils Auto (Bld) [#/Vo l]Ordered By: Christine Sanchez on 07-21-2022 Eosinophils (Bld) [#/Vol] 0.1 10*3/uL 0.0-0.45 [facility] Eosinophils/100 WBC Auto (Bl d)Ordered By: Christine Sanchez on 07-21-2022 Eosinophils/100 WBC (Bld) 1.6 % . [facility] Erythrocyte distribution wid th Auto (RBC) [Ratio]Ordered By: Christine Sanchez on 07-21-2022 Erythrocyte distribution width (RBC) [Ratio] 15.2 % 12.0-14.8 [facility] Erythrocyte sedimentation ra te by Photometric methodOrdered By: Christine Sanchez on 07-21-2022 ESR Photometric method (Bld) [Velocity] 9 mm/hr 0-19 [facility] Estimated glomerular filtrat ion rate (GFR) non- AmericanOrdered By: Christine Sanchez on 07-21-2022 GFR/1.73 sq M.predicted among non-blacks MDRD (S/P/Bld) [Vol rate/Area] > 60 mL/Min [facility] Globulin Calc (S) [Mass/Vol] Ordered By: Christine Sanchez on 07-21-2022 Globulin (S) [Mass/Vol] 2.1 g/dL [facility] Hematocrit Auto (Bld) [Volum e fraction]Ordered By: Christine Sanchez on 07-21-2022 Hematocrit (Bld) [Volume fraction] 45.4 % 38.8-50.0 [facility] Hemoglobin [Mass/volume] in BloodOrdered By: Christine Sanchez on 07-21-2022 Hemoglobin (Bld) [Mass/Vol] 15.2 g/dL 13.0-17.0 [facility] Ketones Auto test strip (U) [Mass/Vol]Ordered By: Christine Sanchez on 07-21-2022 Ketones (U) [Mass/Vol] Negative Negative [facility] - Hematology and Cell countsOrdered By: Christine Sanchez on 07-21-2022 Nucleated RBC/100 WBC (Bld) [Ratio] 0.1 % 0-0.5 [facility] - UrinalysisOrder ed By: Christine Sanchez on 07-21-2022 Hyaline casts LM Ql (Urine sed) 0-8 [LPF] 0-8 [facility] Leukocytes [#/volume] in Blo od by Automated countOrdered By: Christine Sanchez on 07-21-2022 WBC (Bld) [#/Vol] 6.6 10*3/uL 4.5-11.0 [facility] Lymphocytes Auto (Bld) [#/Vo l]Ordered By: Christine Sanchez on 07-21-2022 Lymphocytes (Bld) [#/Vol] 0.8 10*3/uL 1.00-4.8 [facility] Lymphocytes/100 WBC Auto (Bl d)Ordered By: Christine Sanchez on 07-21-2022 Lymphocytes/100 WBC (Bld) 11.5 % . [facility] MCH Auto (RBC) [Entitic mass ]Ordered By: Christine Sanchez on 07-21-2022 MCH (RBC) [Entitic mass] 30.3 pg 27.5-35.2 [facility] MCHC Auto (RBC) [Mass/Vol]Or dered By: Christine Sanchez on 07-21-2022 MCHC (RBC) [Mass/Vol] 33.5 g/dL 32.5-35.6 [facility] MCV Auto (RBC) [Entitic vol] Ordered By: Christine Sanchez on 07-21-2022 MCV (RBC) [Entitic vol] 90.4 fL 83.5-101 [facility] Monocytes Auto (Bld) [#/Vol] Ordered By: Christine Sanchez on 07-21-2022 Monocytes (Bld) [#/Vol] 0.9 10*3/uL 0.0-0.8 [facility] Monocytes/100 WBC Auto (Bld) Ordered By: Christine Sanchez on 07-21-2022 Monocytes/100 WBC (Bld) 13.7 % . [facility] Neutrophils Auto (Bld) [#/Vo l]Ordered By: Christine Sanchez on 07-21-2022 Neutrophils (Bld) [#/Vol] 4.8 10*3/uL 1.8-7.7 [facility] Neutrophils/100 WBC Auto (Bl d)Ordered By: Christine Sanchez on 07-21-2022 Neutrophils/100 WBC (Bld) 72.6 % . [facility] Nitrite Test strip Ql (U)Ord ered By: Christine Sanchez on 07-21-2022 Nitrite Ql (U) Negative Negative [facility] No Panel InformationOrdered By: Christine Sanchez on 07-21-2022 Estimated GFR () > 60 mL/Min [facility] Comment on above: GFR estimated refere nce range: According to KDOQI guidelines, <60 ml/min/1.73m2 is sufficient to diagnose a patient with chronic kidney disease. Pharmacy Creatinine Clearance (Chem N/A [facility] Total Complement (CH50) >60 U/mL >41 [facility] Comment on above: Age Male Female 3 [...] to determine out of range values.Performed at: [facility] [id number] Director: Richy Ardon PhD, Phone: [phone] Platelet mean volume Auto (B ld) [Entitic vol]Ordered By: Christine Sanchez on 07-21-2022 Platelet mean volume (Bld) [Entitic vol] 8.4 fL 6.6-10.1 [facility] Platelets Auto (Bld) [#/Vol] Ordered By: Christine Sanchez on 07-21-2022 Platelets (Bld) [#/Vol] 185 10*3/uL 150-450 [facility] Protein Auto test strip (U) [Mass/Vol]Ordered By: Christine Sanchez on 07-21-2022 Protein (U) [Mass/Vol] Negative Negative [facility] Protein [Mass/volume] in Ser um or PlasmaOrdered By: Christine Sanchez on 07-21-2022 Protein [Mass/Vol] 6.0 g/dL 6.1-7.9 [facility] RBC Auto (Bld) [#/Vol]Ordere d By: Christine Sanchez on 07-21-2022 RBC (Bld) [#/Vol] 5.03 10*6/uL 3.90-5.60 [facility] Serum or plasma alanine calvert otransferase measurement without P-5'-P (enzymatic activiOrdered By: Christine Sanchez on 07-21-2022 ALT No additional P-5'-P [Catalytic activity/Vol] 35 U/L 10-60 [facility] Serum or plasma albumin/glob ulin mass ratioOrdered By: Christine Sanchez on 07-21-2022 Albumin/Globulin [Mass ratio] 1.9 {ratio} [facility] Serum or plasma alkaline kelsie sphatase measurement (enzymatic activity/volume)Ordered By: Christine Sanchez on 07-21-2022 ALP [Catalytic activity/Vol] 81 U/L 32-92 [facility] Serum or plasma anion gap de terminationOrdered By: Christien Sanchez on 07-21-2022 Anion gap [Moles/Vol] 13.7 mmol/L 6.0-15.0 [facility] Serum or plasma aspartate am inotransferase measurement (enzymatic activity/volume)Ordered By: Christine Sanchez on 07-21-2022 AST [Catalytic activity/Vol] 20 U/L 10-42 [facility] Serum or plasma calcium ophelia urement (mass/volume)Ordered By: Christine Sanchez on 07-21-2022 Calcium [Mass/Vol] 9.5 mg/dL 8.2-10.2 [facility] Serum or plasma chloride arelis surement (moles/volume)Ordered By: Christine Sanchez on 07-21-2022 Chloride [Moles/Vol] 103 mmol/L 95-114 [facility] Serum or plasma complement C 3 measurement (mass/volume)Ordered By: Christine Sanchez on 07-21-2022 Complement C3 [Mass/Vol] 145 mg/dL 82-167 [facility] Comment on above: Performed at: [facility] [address] [id number] Director: Richy Ardon PhD, Phone: [phone] Serum or plasma complement C 4 measurement (mass/volume)Ordered By: Christine Sanchez on 07-21-2022 Complement C4 [Mass/Vol] 23 mg/dL 12-38 [facility] Serum or plasma glucose ophelia urement (mass/volume)Ordered By: Christine Sanchez on 07-21-2022 Glucose [Mass/Vol] 83 mg/dL 70-100 [facility] Comment on above: ADA recommended refe rence rangeRandom Glucose Reference Range is dependent on time and content of last meal. Glucose of more than 200 mg/dL in a nonstressed, ambulatory subject supports the diagnosis of Diabetes Mellitus. Serum or plasma potassium me asurement (moles/volume)Ordered By: Christine Sanchez on 07-21-2022 Potassium [Moles/Vol] 4.1 mmol/L 3.5-5.1 [facility] Serum or plasma sodium measu rement (moles/volume)Ordered By: Christine Sanchez on 07-21-2022 Sodium [Moles/Vol] 135 mmol/L 136-146 [facility] Serum or plasma total biliru bin measurement (mass/volume)Ordered By: Christine Sanchez on 07-21-2022 Bilirubin [Mass/Vol] 0.9 mg/dL 0.3-1.2 [facility] Serum or plasma total carbon dioxide measurement (moles/volume)Ordered By: Christine Sanchez on 07-21-2022 CO2 [Moles/Vol] 22.4 mmol/L 22.0-30.0 [facility] Serum or plasma urea nitroge n measurement (mass/volume)Ordered By: Christine Sanchez on 07-21-2022 Urea nitrogen [Mass/Vol] 15 mg/dL 9-23 [facility] Specific gravity Auto test s trip (U) [Rel density]Ordered By: Christine Sanchez on 07-21-2022 Specific gravity (U) [Rel density] 1.020 1.001-1.03 0 [facility] Squamous epithelial cells de tection in urine sediment by light microscopyOrdered By: Christine Sanchez on 07-21-2022 Epithelial cells.squamous LM Ql (Urine sed) None seen [HPF] 0-2 [facility] Urine bacteria detection by automated methodOrdered By: Christine Sanchez on 07-21-2022 Bacteria Auto Ql (U) None seen None Seen [facility] Urine clarity by refractomet ry automatedOrdered By: Christine Sanchez on 07-21-2022 Clarity Refractometry automated (U) Clear Clear [facility] Urine glucose measurement by automated test strip (mass/volume)Ordered By: Christine Sanchez on 07-21-2022 Glucose Auto test strip (U) [Mass/Vol] Normal mg/dL Normal [facility] Urine hemoglobin detection b y automated test stripOrdered By: Christine Sanchez on 07-21-2022 Hemoglobin Auto test strip Ql (U) Negative Negative [facility] Urine leukocyte esterase det ection by automated test stripOrdered By: Christine Sanchez on 07-21-2022 Leukocyte esterase Auto test strip Ql (U) Negative Negative [facility] Urobilinogen Auto test strip (U) [Mass/Vol]Ordered By: Christine Sanchez on 07-21-2022 Urobilinogen (U) [Mass/Vol] Normal mg/dL Normal [facility] pH Auto test strip (U)Ordere d By: Christine Sanchez on 07-21-2022 pH (U) 6.0 [pH] 5.0-9.0 [facility] Automated erythrocytes count in urine sediment (number/area)Ordered By: Romel Davis on 04-14-2022 RBC Auto (Urine sed) [#/Area] 5-9 [HPF] [facility] Automated leukocytes count i n urine sediment (number/area)Ordered By: Romel Davis on 04-14-2022 WBC Auto (Urine sed) [#/Area] 0-1 [HPF] [facility] Basophils Auto (Bld) [#/Vol] Ordered By: Romel Davis on 04-14-2022 Basophils (Bld) [#/Vol] 0.0 10*3/uL 0.0-0.2 [facility] Basophils/100 WBC Auto (Bld) Ordered By: Romel Davis on 04-14-2022 Basophils/100 WBC (Bld) 0.6 % [facility] Bilirubin Test strip Ql (U)O rdered By: Romel Davis on 04-14-2022 Bilirubin Ql (U) Negative Negative [facility] Blood hemoglobin measurement (mass/volume)Ordered By: Romel Davis on 04-14-2022 Hemoglobin (Bld) [Mass/Vol] 15.4 g/dL 13.0-17.0 [facility] Blood leukocytes automated c ount (number/volume)Ordered By: Romel Davis on 04-14-2022 WBC (Bld) [#/Vol] 5.8 10*3/uL 4.5-11.0 [facility] Body fluid albumin measureme nt (mass/volume)Ordered By: Romel Davis on 04-14-2022 Albumin (Body fld) [Mass/Vol] 3.9 g/dL 3.2-5.5 [facility] Cholesterol [Mass/volume] in Serum or PlasmaOrdered By: Sascha Sutton on 04-14-2022 Cholesterol [Mass/Vol] 125 mg/dL 140-200 [facility] Comment on above: Chol less than 200 m g/dl low risk Chol 201-239 mg/dl borderline risk Chol 240 mg/dl and greater high risk Cholesterol in LDL Calc [Mas s/Vol]Ordered By: Sascha Sutton on 04-14-2022 Cholesterol in LDL [Mass/Vol] 69 mg/dL 0-100 [facility] Comment on above: LDL ATP III CLASSIFI CATION LDL less than 100 mg/dL Optimal LDL 100-129 mg/dL Near or above optimal LDL 130-159 mg/dL Borderline high LDL 160-189 mg/dL High LDL greater than 189 mg/dL Very high Cholesterol in VLDL Calc [Ma ss/Vol]Ordered By: Sascha Sutton on 04-14-2022 Cholesterol in VLDL [Mass/Vol] 15 mg/dL [facility] Color Auto (U)Ordered By: Bridgett Davis on 04-14-2022 Color (U) Yellow Yellow [facility] Creatinine and Glomerular fi ltration rate.predicted panel (S/P/Bld)Ordered By: Romel Davis on 04-14-2022 Creatinine [Mass/Vol] 0.86 mg/dL 0.64-1.27 [facility] Eosinophils Auto (Bld) [#/Vo l]Ordered By: Romel Davis on 04-14-2022 Eosinophils (Bld) [#/Vol] 0.1 10*3/uL 0.0-0.45 [facility] Eosinophils/100 WBC Auto (Bl d)Ordered By: Romel Davis on 04-14-2022 Eosinophils/100 WBC (Bld) 1.5 % [facility] Erythrocyte distribution wid th Auto (RBC) [Ratio]Ordered By: Romel Davis on 04-14-2022 Erythrocyte distribution width (RBC) [Ratio] 14.6 % 12.0-14.8 [facility] Erythrocyte sedimentation ra te by Photometric methodOrdered By: Romel Davis on 04-14-2022 ESR Photometric method (d) [Velocity] 5 mm/hr 0-19 [facility] Estimated glomerular filtrat ion rate (GFR) non- AmericanOrdered By: Romel Davis on 04-14-2022 GFR/1.73 sq M.predicted among non-blacks MDRD (S/P/Bld) [Vol rate/Area] > 60 mL/Min [facility] Globulin Calc (S) [Mass/Vol] Ordered By: Romel Davis on 04-14-2022 Globulin (S) [Mass/Vol] 2.3 g/dL [facility] Hematocrit Auto (Bld) [Volum e fraction]Ordered By: Romel Davis on 04-14-2022 Hematocrit (Bld) [Volume fraction] 45.0 % 38.8-50.0 [facility] Ketones Auto test strip (U) [Mass/Vol]Ordered By: Romel Davis on 04-14-2022 Ketones (U) [Mass/Vol] Trace Negative [facility] - Hematology and Cell countsOrdered By: Romel Davis on 04-14-2022 Nucleated RBC/100 WBC (Bld) [Ratio] 0.1 % 0-0.5 [facility] - UrinalysisOrder ed By: Romel Davis on 04-14-2022 Hyaline casts LM Ql (Urine sed) 0-8 [LPF] [facility] Lymphocytes Auto (Bld) [#/Vo l]Ordered By: Romel Davis on 04-14-2022 Lymphocytes (Bld) [#/Vol] 0.6 10*3/uL 1.00-4.8 [facility] Lymphocytes/100 WBC Auto (Bl d)Ordered By: Romel Davis on 04-14-2022 Lymphocytes/100 WBC (Bld) 10.9 % [facility] MCH Auto (RBC) [Entitic mass ]Ordered By: Romel Davis on 04-14-2022 MCH (RBC) [Entitic mass] 30.5 pg 27.5-35.2 [facility] MCHC Auto (RBC) [Mass/Vol]Or dered By: Romel Davis on 04-14-2022 MCHC (RBC) [Mass/Vol] 34.2 g/dL 32.5-35.6 [facility] MCV Auto (RBC) [Entitic vol] Ordered By: Romel Davis on 04-14-2022 MCV (RBC) [Entitic vol] 89.3 fL 83.5-101 [facility] Monocytes Auto (Bld) [#/Vol] Ordered By: Romel Davis on 04-14-2022 Monocytes (Bld) [#/Vol] 0.7 10*3/uL 0.0-0.8 [facility] Monocytes/100 WBC Auto (Bld) Ordered By: Romel Davis on 04-14-2022 Monocytes/100 WBC (Bld) 12.2 % [facility] Neutrophils Auto (Bld) [#/Vo l]Ordered By: Romel Davis on 04-14-2022 Neutrophils (Bld) [#/Vol] 4.4 10*3/uL 1.8-7.7 [facility] Neutrophils/100 WBC Auto (Bl d)Ordered By: Romel Davis on 04-14-2022 Neutrophils/100 WBC (Bld) 74.8 % [facility] Nitrite Test strip Ql (U)Ord ered By: Romel Davis on 04-14-2022 Nitrite Ql (U) Negative Negative [facility] No Panel InformationOrdered By: Romel Davis on 04-14-2022 Estimated GFR () > 60 mL/Min [facility] Comment on above: GFR estimated refere nce range: According to KDOQI guidelines, <60 ml/min/1.73m2 is sufficient to diagnose a patient with chronic kidney disease. Pharmacy Creatinine Clearance (Chem N/A [facility] No Panel InformationOrdered By: Sascha Sutton on 04-14-2022 Prostate Specific Antigen Screen 1.930 ng/mL 0.000-4.00 0 [facility] Platelet mean volume Auto (B ld) [Entitic vol]Ordered By: Romel Davis on 04-14-2022 Platelet mean volume (Bld) [Entitic vol] 8.8 fL 6.6-10.1 [facility] Platelets Auto (Bld) [#/Vol] Ordered By: Romel Davis on 04-14-2022 Platelets (Bld) [#/Vol] 181 10*3/uL 150-450 [facility] Protein Auto test strip (U) [Mass/Vol]Ordered By: Romel Davis on 04-14-2022 Protein (U) [Mass/Vol] Trace mg/dL Negative [facility] Protein [Mass/volume] in Ser um or PlasmaOrdered By: Romel Davis on 04-14-2022 Protein [Mass/Vol] 6.2 g/dL 6.1-7.9 [facility] RBC Auto (Bld) [#/Vol]Ordere d By: Romel Davis on 04-14-2022 RBC (Bld) [#/Vol] 5.03 10*6/uL 3.90-5.60 [facility] Serum or plasma alanine calvert otransferase measurement without P-5'-P (enzymatic activiOrdered By: Romel Davis on 04-14-2022 ALT No additional P-5'-P [Catalytic activity/Vol] 27 U/L 10-60 [facility] Serum or plasma albumin/glob ulin mass ratioOrdered By: Romel Davis on 04-14-2022 Albumin/Globulin [Mass ratio] 1.7 {ratio} [facility] Serum or plasma alkaline kelsie sphatase measurement (enzymatic activity/volume)Ordered By: Romel Davis on 04-14-2022 ALP [Catalytic activity/Vol] 77 U/L 32-92 [facility] Serum or plasma aspartate am inotransferase measurement (enzymatic activity/volume)Ordered By: Romel Davis on 04-14-2022 AST [Catalytic activity/Vol] 20 U/L 10-42 [facility] Serum or plasma calcium ophelia urement (mass/volume)Ordered By: Romel Davis on 04-14-2022 Calcium [Mass/Vol] 9.0 mg/dL 8.2-10.2 [facility] Serum or plasma chloride arelis surement (moles/volume)Ordered By: Romel Davis on 04-14-2022 Chloride [Moles/Vol] 104 mmol/L 95-114 [facility] Serum or plasma glucose ophelia urement (mass/volume)Ordered By: Romel Davis on 04-14-2022 Glucose [Mass/Vol] 110 mg/dL 70-100 [facility] Comment on above: ADA recommended refe rence range Random Glucose Reference Range is dependent on time and content of last meal. Glucose of more than 200 mg/dL in a nonstressed, ambulatory subject supports the diagnosis of Diabetes Mellitus. Serum or plasma high density lipoprotein (HDL) cholesterol measurementOrdered By: Sascha Sutton on 04-14-2022 Cholesterol in HDL [Mass/Vol] 41 mg/dL 29-71 [facility] Comment on above: HDL CHOL ATP-III CLA SSIFICATION Cardiovascular Risk HDL > or equal to 60 mg/dL LOW HDL < 40 mg/dL HIGH Serum or plasma potassium me asurement (moles/volume)Ordered By: Romel Davis on 04-14-2022 Potassium [Moles/Vol] 3.9 mmol/L 3.5-5.1 [facility] Serum or plasma sodium measu rement (moles/volume)Ordered By: Romel Davis on 04-14-2022 Sodium [Moles/Vol] 136 mmol/L 136-146 [facility] Serum or plasma total biliru bin measurement (mass/volume)Ordered By: Romel Davis on 04-14-2022 Bilirubin [Mass/Vol] 0.9 mg/dL 0.3-1.2 [facility] Serum or plasma total carbon dioxide measurement (moles/volume)Ordered By: Romel Davis on 04-14-2022 CO2 [Moles/Vol] 21.2 mmol/L 22.0-30.0 [facility] Serum or plasma total choles terol/high density lipoprotein (HDL) cholesterol mass ratOrdered By: Sascha Sutton on 04-14-2022 Cholesterol.total/Chol esterol in HDL [Mass ratio] 3.0 {ratio} [facility] Serum or plasma urea nitroge n measurement (mass/volume)Ordered By: Romel Davis on 04-14-2022 Urea nitrogen [Mass/Vol] 16 mg/dL 9-23 [facility] Specific gravity Auto test s trip (U) [Rel density]Ordered By: Romel Davis on 04-14-2022 Specific gravity (U) [Rel density] 1.025 1.001-1.03 0 [facility] Squamous epithelial cells de tection in urine sediment by light microscopyOrdered By: Romel Davis on 04-14-2022 Epithelial cells.squamous LM Ql (Urine sed) 0-1 [HPF] [facility] Triglyceride [Mass/volume] i n Serum or PlasmaOrdered By: Sascha Sutton on 04-14-2022 Triglyceride [Mass/Vol] 75 mg/dL 35-149 [facility] Comment on above: TRIG ATP III CLASSIF ICATION TRIG less than 150 mg/dL Normal TRIG 150-199 mg/dL Borderline high TRIG 200-500 mg/dL High TRIG greater than 500 mg/dL Very high Standard traceable to the Center for Disease Conrtrol and Prevention (CDC) test method. Urine bacteria detection by automated methodOrdered By: Romel Davis on 04-14-2022 Bacteria Auto Ql (U) None seen None Seen [facility] Urine clarity by refractomet ry automatedOrdered By: Romel Davis on 04-14-2022 Clarity Refractometry automated (U) Turbid Clear [facility] Urine glucose measurement by automated test strip (mass/volume)Ordered By: Romel Davis on 04-14-2022 Glucose Auto test strip (U) [Mass/Vol] Normal mg/dL Normal [facility] Urine hemoglobin detection b y automated test stripOrdered By: Romel Davis on 04-14-2022 Hemoglobin Auto test strip Ql (U) Negative Negative [facility] Urine leukocyte esterase det ection by automated test stripOrdered By: Romel Davis on 04-14-2022 Leukocyte esterase Auto test strip Ql (U) Negative Negative [facility] Urobilinogen Auto test strip (U) [Mass/Vol]Ordered By: Romel Ryan on 04-14-2022 Urobilinogen (U) [Mass/Vol] Normal mg/dL Normal [facility] pH Auto test strip (U)Ordere d By: Romel Mendezrow on 04-14-2022 pH (U) 5.5 [pH] 5.0-9.[address] [facility] [address] CSPINE WO CONon 2 CT CSPINE [...] by: PRIMO GALE Date: 2022-04-09 17:03 Normal [facility] CT HEAD WO CONon 04-09-2022 CT HEAD [...] by: PRIMO GALE Date: 2022-04-09 17:00 Normal [facility] CT TSPINE WO CONon 2 CT TSPINE WO CON EXAMINATION: CT TSPI [...] by: PRIMO GALE Date: 2022-04-09 17:10 Normal [facility] CT ABDOMEN AND PELVIS W/O CO NTRASTon 04-25-2018 CT ABDOMEN AND PELVIS W/O CONTRAST Performed at [facility] APPROVED BY: JOSE CRUZ HOLLEY [...] the detailed report for complete information. [facility] 2017 Albumin 4.3 g/dL Normal 3.4-5.0 [facility] Comment on above: Performed By: #### S P14 ####[address] [address] Alkaline phosphatase (ALP) 87 U/L Normal 46-116 [facility] Comment on above: Performed By: #### S P14 ####[address] [address] ALT-SGPT Blood 38 U/L Normal 12-78 [facility] Comment on above: Performed By: #### S P14 ####[address] [address] Anion gap 13 mmol/L Normal 8-16 [facility] Comment on above: Performed By: #### S P14 ####[address] [address] AST-SGOT Blood 22 U/L Normal 15-46 [facility] Comment on above: Performed By: #### S P14 ####[place] [address] Bilirubin Ql (U) 0.9 mg/dL Normal 0.2-1.0 [facility] Comment on above: Performed By: #### S P14 ####[place] [address] BUN (urea nitrogen) 20 mg/dL High 7-18 [facility] Comment on above: Performed By: #### S P14 ####[address] [address] Calcium 9.0 mg/dL Normal 8.5-10.1 [facility] Comment on above: Performed By: #### S P14 ####[address] [address] Chloride 104 mmol/L Normal 98-107 [facility] Comment on above: Performed By: #### S P14 ####[address] [address] CO2 24 mmol/L Normal 21-32 [facility] Comment on above: Performed By: #### S P14 ####[place] [address] Creatinine 0.93 mg/dL Normal 0.67-1.17 [facility] Comment on above: Performed By: #### S P14 ####[facility] [place] [address] Glucose mass conc 142 mg/dL High 70-99 [facility] Comment on above: Performed By: #### S P14 ####[facility] [place] [address] Potassium molar conc 3.8 mmol/L Normal 3.5-5.1 [facility] Comment on above: Performed By: #### S P14 ####[facility] [place] [address] Protein 7.4 g/dL Normal 6.4-8.2 [facility] Comment on above: Performed By: #### S P14 ####[facility] [place] [address] Sodium 137 mmol/L Normal 136-145 [facility] Comment on above: Performed By: #### S P14 ####[facility] [place] [address] ED NOTEon 04-25-2018 ED NOTE HNO ID: [id number] Author: Minerva GarciaRn) KATHE Zepeda Service: Emergency Medicine Author Type: Registered Nurse Type: ED Notes Filed: 04/25/2018 5:51 AM Note Text: Voided 150 cc light yellow urine which was strained: no stone noted [facility] ED NOTE HNO ID: [id number] Author: Minerva Miguel) KATHE Zepeda Service: Emergency Medicine Author Type: Registered Nurse Type: ED Notes Filed: 04/25/2018 3:34 AM Note Text: Patient returned to the Emergency Department. [facility] ED NOTE HNO ID: [id number] Author: Valentine Stratton RN Service: Emergency Medicine Author Type: Registered Nurse Type: ED Notes Filed: 04/25/2018 3:30 AM Note Text: Patient transported to ct/cart [facility] ED NOTE HNO ID: [id number] Author: Valentine Stratton RN Service: Emergency Medicine Author Type: Registered Nurse Type: ED Notes Filed: 04/25/2018 3:21 AM Note Text: Warm b lanket given, labs drawn with IV start AND sent, medicated for paIN PER ORDER Normal [facility] ED NOTE HNO ID: [id number] thor: Minerva (Rn) DIEGO Zepedaervice: Emergency MedicineAuthor Type: Registered NurseType: ED NotesFiled: 04/25/2018 2:55 AMNote Text:c/o pain left lower abdomen that began around 12:30 AM-- pain woke pt upand is assoc with nausea. Vomited small amt food particles upon arrival toed Rm Normal [facility] ED PROV NOTEon 04-25-2018 ED PROV NOTE HNO ID: [id number] thor: STEPHANIE Gillervice: Emergency MedicineAuthor Type: PhysicianType: ED Provider NotesFiled: 04/25/2018 6:48 AMNote Text:ED Provider NotePatient Name: Valentin TorreMRN: [id number] DATE: 04/25/18HistoryPatient presents with:Abdominal PainPatient is a [...] 10.24 (*) 1.35 - 7.21 thou/cmm Abs. Amelia 0.84 (*) 0.19 - 0.80 thou/cmm All other components within normal limitsLIPASE BLOOD (AK,AV,EU,FV,HL,KUSH,MM,SP)MD OLIVARES GFRProceduresMedical Decision MakingMDe should history and physical examination consistent with [...] up withurology as an outpatient. [place] and he will follow-upwith the urologist there. He was discharged home in improved condition.He is happy with his care and comfortable with the plan.ED Course / Clinical ImpressionClinical Impressions as of Apr 25 0647Ureteral calculus, leftHydronephrosis with urinary obstruction due to renal calculusPlanSIGNATURE: Jose De Jesus Gill MD04/25/[address] [facility] Hemogram/Diffon 04-25-2018 Abs. Baso 0.02 thou/cmm Normal 0.00-0.08 [facility] Comment on above: Performed By: #### S CBCD ####[place] [address] Abs. Amelia 0.84 thou/cmm High 0.19-0.80 [facility] Comment on above: Performed By: #### S CBCD ####[facility] [place], [place] [address] Abs. Neut (ANC) 10.24 thou/cmm High 1.35-7.21 [facility] Comment on above: Performed By: #### S CBCD ####[address] [address] Basophils/100 WBC Auto (Bld) 0.2 % Normal [facility] Comment on above: Performed By: #### S CBCD ####[address] [address] Eosinophils 0.04 thou/cmm Normal 0.00-0.36 [facility] Comment on above: Performed By: #### S CBCD ####[address] [address] Eosinophils/100 leukocytes 0.3 % Normal [facility] Comment on above: Performed By: #### S CBCD ####[place] [address] Erythrocyte distribution width Auto Ratio (RBC) 13.7 % Normal 11.8-14.5 [facility] Comment on above: Performed By: #### S CBCD ####[address] [address] Erythrocytes (RBC) 5.26 mil/cmm Normal 4.22-5.80 [facility] Comment on above: Performed By: #### S CBCD ####[address] [address] Hematocrit (HCT) 47.0 % Normal 39.6-50.7 [facility] Comment on above: Performed By: #### S CBCD ####[address] [address] Hemoglobin mass conc (Bld) 16.2 g/dL Normal 13.2-17.4 [facility] Comment on above: Performed By: #### S CBCD ####[place] [address] Lymphocytes 0.83 thou/cmm Normal 0.68-2.93 [facility] Comment on above: Performed By: #### S CBCD ####[facility] [place], [place] [address] Lymphocytes/100 leukocytes 6.9 % Normal [facility] Comment on above: Performed By: #### S CBCD ####[address] [address] MCH 30.8 pg Normal 27.4-32.8 [facility] Comment on above: Performed By: #### S CBCD ####[address] [address] MCHC mass conc (RBC) 34.5 % Normal 31.9-35.6 [facility] Comment on above: Performed By: #### S CBCD ####[address] [address] MCV 89.4 fL Normal 81.8-95.6 [facility] Comment on above: Performed By: #### S CBCD ####[address] [address] Monocytes/100 leukocytes 7.0 % Normal [facility] Comment on above: Performed By: #### S CBCD ####[address] [address] Platelet mean volume (PMV) 10.1 fL Normal 8.8-12.1 [facility] Comment on above: Performed By: #### S CBCD ####[address] [address] Platelets 169 thou/cmm Normal 150-370 [facility] Comment on above: Performed By: #### S CBCD ####[address] [address] Seg Neutrophil 85.6 % Normal [facility] Comment on above: Performed By: #### S CBCD ####[address] [address] WBC (Leukocytes) 12.0 thou/cmm High 4.4-9.7 [facility] Comment on above: Performed By: #### S CBCD ####[address], [place] [address] Lipase Bloodon 04-25-2018 Lipase Blood 155 U/L Normal 73-393 [facility] Comment on above: Performed By: #### S LIP ####[place] [address] MDRD eGFRon 04-25-2018 eGFR (non-black) mL/min/{1.73_m2} Normal >60mL/m in/ 1.73m2 [facility] Comment on above: Result Comment: If t he patient is , multiply the result by 1.210. Performed By: #### S GFR ####[place] [address] Urinalysis Routineon 018 Bilirubin Urine Negative Normal Negative [facility] Comment on above: Performed By: #### S URIN ####[place] [address] Ep Cells Urine NONE Normal 0-5 [facility] Comment on above: Performed By: #### S URIN ####[address] [address] Hemoglobin,Urine TRACE-INTACT Abnormal Negative [facility] Comment on above: Performed By: #### S URIN ####[place] [address] Ketone Urine 15 mg/dL Abnormal Negative [facility] Comment on above: Performed By: #### S URIN ####[place] [address] Nitrites Urine Negative Normal Negative [facility] Comment on above: Performed By: #### S URIN ####[address] [address] Protein Urine Negative Normal Negative [facility] Comment on above: Performed By: #### S URIN ####[place] [address] Specific [place], Ur 1.020 Normal 1.005-1 .03 0 [facility] Comment on above: Performed By: #### S URIN ####[place] [address] Urine, appearance CLEAR Normal [facility] Comment on above: Performed By: #### S URIN ####[facility] [place], [place] [address] Urine, bacteria in sediment NONE Normal None [facility] Comment on above: Performed By: #### S URIN ####[facility] [place], [place] [address] Urine, color YELLOW Normal [facility] Comment on above: Performed By: #### S URIN ####[facility] [place] [address] Urine, erythrocytes in sediment by area 7-12 Normal 0-3 [facility] Comment on above: Performed By: #### S URIN ####[place] [address] Urine, glucose presence Negative Normal Negative [facility] Comment on above: Performed By: #### S URIN ####[place] [address] Urine, leukocytes in sedmiment 0-2 Normal 0-5 [facility] Comment on above: Performed By: #### S URIN ####[place] [address] Urine, pH 7.0 [pH] Normal 5.0-8.0 [facility] Comment on above: Performed By: #### S URIN ####[place] [address] Urobilinogen,Ur 0.2 EU/dL Normal 0.0-1.0 [facility] Comment on above: Performed By: #### S URIN ####[place] [address] WBC (Leukocytes) Negative Normal Negative [facility] Comment on above: Performed By: #### S URIN ####[place] [address] Vital Signs Date Time Vital Sign Value Performing Clinician Facility 09-03-2024 10:01-0400 Blood Pressure Location Zac MUNIZ [facility] 09-03-2024 10:01-0400 Body temperature 98.6 [degF] Zac MUNIZ [facility] 09-03-2024 10:01-0400 Diastolic blood pressure 77 mm[Hg] Zac MUNIZ [facility] 09-03-2024 10:01-0400 Heart rate 71 /min Zacgreyson MUNIZ [facility] 09-03-2024 10:01-0400 Respiratory rate 16 /min Zacgreyson MUNIZ [facility] 09-03-2024 10:01-0400 Systolic blood pressure 129 mm[Hg] Zac MUNIZ [facility] 08-29-2024 10:46-0400 Body height 172.72 cm MD Edenilson Mcleod Work Phone: [facility] 08-29-2024 10:46-0400 Body mass index (BMI) [Ratio] 32.2 kg/m2 MD Edenilson Mcleod Work Phone: [facility] 08-29-2024 10:46-0400 Body weight 96.16 kg MD Edenilson Mcleod Work Phone: [facility] 05-28-2024 08:56-0400 Body height 172.72 cm DO Sascha Furlong Work Phone: [facility] 05-28-2024 08:56-0400 Body mass index (BMI) [Ratio] 31.8 kg/m2 DO Sascha Furlong Work Phone: [facility] 05-28-2024 08:56-0400 Body weight 95 kg DO Sascha Furlong Work Phone: [facility] 05-15-2024 14:48-0400 Blood Pressure Location LEAH BILL [facility] 05-15-2024 14:48-0400 Diastolic blood pressure 78 mm[Hg] LEAH BILL [facility] 05-15-2024 14:48-0400 Heart rate 80 /min LEAH BILL [facility] 05-15-2024 14:48-0400 Respiratory rate 16 /min LEAH BILL [facility] 05-15-2024 14:48-0400 Systolic blood pressure 132 mm[Hg] LEAH BILL [facility] 04-24-2024 10:48-0400 Body height 172.72 cm DO Sascha Furlong Work Phone: [facility] 04-24-2024 10:48-0400 Body mass index (BMI) [Ratio] 32.1 kg/m2 DO Sascha Furlong Work Phone: [facility] 04-24-2024 10:48-0400 Body weight 95.76 kg DO Sascha Furlong Work Phone: [facility] 04-09-2024 12:35-0400 Diastolic blood pressure 68 mm[Hg] DO Sascha Furlong Work Phone: [facility] 04-09-2024 12:35-0400 Heart rate 63 /min DO Sascha Furlong Work Phone: [facility] 04-09-2024 12:35-0400 Respiratory rate 16 /min DO Sascha Furlong Work Phone: [facility] 04-09-2024 12:35-0400 SaO2% (BldA) [Mass fraction] 98 % DO Sascha Furlong Work Phone: [facility] 04-09-2024 12:35-0400 Systolic blood pressure 107 mm[Hg] DO Sascha Furlong Work Phone: [facility] 04-09-2024 12:05-0400 Inhaled oxygen flow rate 4 L/min DO Sascha Furlong Work Phone: [facility] 04-09-2024 10:16-0400 Body height 172.72 cm DO Sascha Furlong Work Phone: [facility] 04-09-2024 10:16-0400 Body mass index (BMI) [Ratio] 32.1 kg/m2 DO Sascha Furlong Work Phone: [facility] 04-09-2024 10:16-0400 Body weight 96 kg DO Sascha Furlong Work Phone: [facility] 04-09-2024 09:12-0400 Body temperature 97.8 [degF] DO Sascha Furlong Work Phone: [facility] 03-29-2024 11:07-0400 Body height 172.72 cm DO Sascha Furlong Work Phone: [facility] 03-29-2024 11:07-0400 Body mass index (BMI) [Ratio] 32.2 kg/m2 DO Sascha Furlong Work Phone: [facility] 03-29-2024 11:07-0400 Body weight 96.16 kg DO Sascha Furlong Work Phone: [facility] 03-20-2024 12:09-0400 Blood Pressure Location Daria Orzech [facility] 03-20-2024 12:09-0400 Body temperature 97.52 [degF] Daria Orzech [facility] 03-20-2024 12:09-0400 Diastolic blood pressure 74 mm[Hg] Daria Orzech [facility] 03-20-2024 12:09-0400 Heart rate 73 /min Daria Orzech [facility] 03-20-2024 12:09-0400 Respiratory rate 19 /min Daria Orzech [facility] 03-20-2024 12:09-0400 Systolic blood pressure 124 mm[Hg] Daria Orzech [facility] 02-21-2024 10:29-0400 Body height 172.72 cm DO Sascha Furlong Work Phone: [facility] 02-21-2024 10:29-0400 Body mass index (BMI) [Ratio] 32.6 kg/m2 DO Sascha Furlong Work Phone: [facility] 02-21-2024 10:29-0400 Body weight 97.52 kg DO Sascha Furlong Work Phone: [facility] 02-09-2024 13:46-0400 Body height 172.72 cm DO Sascha Furlong Work Phone: [facility] 02-09-2024 13:46-0400 Body mass index (BMI) [Ratio] 32.3 kg/m2 DO Sascha Furlong Work Phone: [facility] 02-09-2024 13:46-0400 Body weight 96.61 kg DO Sascha Furlong Work Phone: [facility] 01-02-2024 23:55-0500 Body height 172.72 cm DO Sascha Furlong Work Phone: [facility] 01-02-2024 23:55-0500 Body temperature 97.4 [degF] DO Sascha Furlong Work Phone: [facility] 01-02-2024 23:55-0500 Body weight 100.3 kg DO Sascha Furlong Work Phone: [facility] 01-02-2024 23:55-0500 Diastolic blood pressure 100 mm[Hg] DO Sascha Furlong Work Phone: [facility] 01-02-2024 23:55-0500 Heart rate 74 /min DO Sascha Furlong Work Phone: [facility] 01-02-2024 23:55-0500 Respiratory rate 20 /min DO Sascha Furlong Work Phone: [facility] 01-02-2024 23:55-0500 SaO2% (BldA) [Mass fraction] 96 % DO Sascha Furlong Work Phone: [facility] 01-02-2024 23:55-0500 Systolic blood pressure 155 mm[Hg] DO Sascha Furlong Work Phone: [facility] 12-30-2023 09:40-0500 Body height 172.72 cm [employer] Other [employer] [facility] [employer] Other 12-30-2023 09:40-0500 Body mass index (BMI) [Ratio] 32.99 kg/m2 [employer] Other 12-30-2023 09:40-0500 Body weight 98.43 kg [employer] Other 12-14-2023 09:34-0500 Body height 172.7 cm Sascha Furlong DO Work Phone: [employer] 12-14-2023 09:34-0500 Body mass index (BMI) [Ratio] 33.49 kg/m2 Sascha Furlong DO Work Phone: [facility] [employer] 12-14-2023 09:34-0500 Body temperature 97.59 [degF] Sascha Furlong DO Work Phone: [facility] [employer] [facility] 12-14-2023 09:34-0500 Body weight 99.88 kg Sascha Furlong DO Work Phone: [facility] [employer] [facility] 12-14-2023 09:34-0500 Diastolic blood pressure 68 mm[Hg] Sascha Furlong DO Work Phone: [facility] [employer] [facility] 12-14-2023 09:34-0500 Heart rate 75 /min Sascha Furlong DO Work Phone: [facility] [employer] [facility] 12-14-2023 09:34-0500 Respiratory rate 20 /min Sascha Marielong DO Work Phone: [facility] [employer] [facility] 12-14-2023 09:34-0500 SaO2% (BldA) [Mass fraction] 96 % Sascha Marielong DO Work Phone: [facility] [employer] [facility] 12-14-2023 09:34-0500 Systolic blood pressure 122 mm[Hg] Sascha Marielong DO Work Phone: [facility] 09-19-2023 09:39-0400 Blood Pressure Location Zac MUNIZ [facility] 09-19-2023 09:39-0400 Diastolic blood pressure 77 mm[Hg] Zac MUNIZ [facility] 09-19-2023 09:39-0400 Heart rate 64 /min Zacgreyson MUNIZ [facility] 09-19-2023 09:39-0400 Respiratory rate 16 /min Zac MUNIZ [facility] 09-19-2023 09:39-0400 Systolic blood pressure 126 mm[Hg] Zac MUNIZ [facility] 05-18-2023 09:00-0400 Body weight 20 mg DO Asscha Furlong Work Phone: [facility] 05-09-2023 10:34-0400 Body height 172.72 cm Sascha G Furlong Work Phone: [facility] 250 DO Work Phone: 05-09-2023 10:34-0400 Body mass index (BMI) [Ratio] 32.54 kg/m2 Sascha G Furlong Work Phone: [facility] 250 DO Work Phone: 05-09-2023 10:34-0400 Body surface area Derived from formula 2.1 m2 Sascha G Furlong Work Phone: [facility] 250 DO Work Phone: 05-09-2023 10:34-0400 Body weight 97.07 kg Sascha G Furlong Work Phone: [facility] 250 DO Work Phone: 05-09-2023 10:34-0400 Diastolic blood pressure 60 mm[Hg] Sascha G Furlong Work Phone: [facility] 250 DO Work Phone: 05-09-2023 10:34-0400 Heart rate 78 /min Sascha G Furlong Work Phone: [facility] 250 DO Work Phone: 05-09-2023 10:34-0400 Systolic blood pressure 88 mm[Hg] Sascha G Furlong Work Phone: [facility] 250 DO Work Phone: 05-07-2023 19:59-0400 Diastolic blood pressure 67 mm[Hg] DO Sascha Furlong Work Phone: [facility] 05-07-2023 19:59-0400 Heart rate 68 /min DO Sascha Furlong Work Phone: [facility] 05-07-2023 19:59-0400 Respiratory rate 18 /min DO Sascha Furlong Work Phone: [facility] 05-07-2023 19:59-0400 SaO2% (BldA) [Mass fraction] 96 % DO Sascha Furlong Work Phone: [facility] 05-07-2023 19:59-0400 Systolic blood pressure 122 mm[Hg] DO Sascha Furlong Work Phone: [facility] 05-07-2023 18:27-0400 Body height 172.72 cm DO Sascha Furlong Work Phone: [facility] 05-07-2023 18:27-0400 Body temperature 99 [degF] DO Sascha Furlong Work Phone: [facility] 05-07-2023 18:27-0400 Body weight 94.95 kg DO Sascha Furlong Work Phone: [facility] 05-03-2023 05:30-0400 Diastolic blood pressure 60 mm[Hg] DO Sascha Furlong Work Phone: [facility] 05-03-2023 05:30-0400 Heart rate 74 /min DO Sascha Furlong Work Phone: [facility] 05-03-2023 05:30-0400 Respiratory rate 18 /min DO Sascha Furlong Work Phone: [facility] 05-03-2023 05:30-0400 SaO2% (BldA) [Mass fraction] 96 % DO Sascha Furlong Work Phone: [facility] 05-03-2023 05:30-0400 Systolic blood pressure 101 mm[Hg] DO Sascha Furlong Work Phone: [facility] 05-03-2023 02:29-0400 Body height 172.72 cm DO Sascha Furlong Work Phone: [facility] 05-03-2023 02:29-0400 Body temperature 97.9 [degF] DO Sascha Furlong Work Phone: [facility] 05-03-2023 02:29-0400 Body weight 97.52 kg DO Sascha Furlong Work Phone: [facility] 04-04-2023 15:54-0400 Diastolic blood pressure 55 mm[Hg] DO Sascha Furlong Work Phone: [facility] 04-04-2023 15:54-0400 Heart rate 54 /min DO Sascha Furlong Work Phone: [facility] 04-04-2023 15:54-0400 Respiratory rate 16 /min DO Sascha Furlong Work Phone: [facility] 04-04-2023 15:54-0400 SaO2% (BldA) [Mass fraction] 95 % DO Sascha Furlong Work Phone: [facility] 04-04-2023 15:54-0400 Systolic blood pressure 98 mm[Hg] DO Sascha Furlong Work Phone: [facility] 04-04-2023 09:55-0400 Body height 172.72 cm DO Sascha Furlong Work Phone: [facility] 04-04-2023 09:55-0400 Body temperature 97.5 [degF] DO Sascha Furlong Work Phone: [facility] 04-04-2023 09:55-0400 Body weight 98.7 kg DO Sascha Furlong Work Phone: [facility] 03-30-2023 11:00-0400 Body height 172.72 cm Sascha G Furlong Work Phone: [facility] 250 DO Work Phone: 03-30-2023 11:00-0400 Body mass index (BMI) [Ratio] 32.99 kg/m2 Sascha G Furlong Work Phone: [facility] 250 DO Work Phone: 03-30-2023 11:00-0400 Body surface area Derived from formula 2.12 m2 Sascha G Furlong Work Phone: [facility] 250 DO Work Phone: 03-30-2023 11:00-0400 Body weight 98.43 kg Sascha G Furlong Work Phone: [facility] 250 DO Work Phone: 03-30-2023 11:00-0400 Diastolic blood pressure 70 mm[Hg] Sascha G Furlong Work Phone: [facility] 250 DO Work Phone: 03-30-2023 11:00-0400 Diastolic blood pressure 82 mm[Hg] Sascha G Furlong Work Phone: [facility] 250 DO Work Phone: 03-30-2023 11:00-0400 Heart rate 63 /min Sascha G Furlong Work Phone: [facility] 250 DO Work Phone: 03-30-2023 11:00-0400 Systolic blood pressure 126 mm[Hg] Sascha G Furlong Work Phone: [facility] 250 DO Work Phone: 03-30-2023 11:00-0400 Systolic blood pressure 134 mm[Hg] Sascha Sutton Work Phone: [facility] 250 DO Work Phone: 03-24-2023 11:00-0400 54 1 Sascha Sutton Work Phone: [facility] 250 DO Work Phone: Comment on above: [id number] Encounters Encounter Date Encounter Type Care Provider Facility Start: 09-20-2024 [id number] Start: 09-03-2024 End: 09-03-2024 ambulatory Zac MUNIZ Facility:[facility] Start: 09-03-2024 End: 09-03-2024 Patient encounter procedure Zac MUNIZ [facility] Start: 08-29-2024 End: 08-29-2024 Refill Sascha Sutton DO Work Phone: [facility] Start: 08-29-2024 End: 08-29-2024 ambulatory Jaime Murcia II Facility:[facility] Start: 08-29-2024 End: 08-29-2024 Patient encounter procedure MD Edenilson Mcleod Work Phone: [facility] Work Phone: Start: 08-20-2024 End: 08-20-2024 ambulatory MD Edenilson Mcleod Work Phone: [facility] Work Phone: Start: 08-20-2024 End: 08-20-2024 Patient encounter procedure MD Edenilson Mcleod Work Phone: [facility] Work Phone: Start: 08-17-2024 End: 08-17-2024 ambulatory KYRAPamela CONKLIN Not Available Start: 08-13-2024 End: 08-13-2024 ambulatory MD Edenilson Mcleod Work Phone: [facility] Work Phone: Start: 08-13-2024 End: 08-13-2024 Patient encounter procedure MD Edenilson Mcleod Work Phone: [facility] Work Phone: Start: 08-13-2024 Non-patient / Non-visit MD Araya Work Phone: [facility] Work Phone: Start: 07-25-2024 End: 07-25-2024 ambulatory MD Edenilson Mcleod Work Phone: [facility] Work Phone: Start: 07-25-2024 End: 07-25-2024 Patient encounter procedure MD Edenilson Mcleod Work Phone: [facility] Work Phone: Start: 07-18-2024 Non-patient / Non-visit MD Araya Work Phone: [facility] Work Phone: Start: 07-18-2024 End: 07-18-2024 Patient encounter procedure MD Edenilson Mcleod Work Phone: [facility] Work Phone: Start: 07-12-2024 End: 07-12-2024 ambulatory MD Edenilson Mcleod Work Phone: [facility] Work Phone: Start: 07-12-2024 End: 07-12-2024 Patient encounter procedure MD Edenilson Mcleod Work Phone: [facility] Work Phone: Start: 07-04-2024 Non-patient / Non-visit MD Araya Work Phone: [facility] Work Phone: Start: 07-04-2024 End: 07-04-2024 ambulatory DO Sascha Furlong Work Phone: [facility] Work Phone: Start: 07-04-2024 End: 07-04-2024 Patient encounter procedure DO Sascha Furlong Work Phone: [facility] Work Phone: Start: 07-03-2024 End: 07-03-2024 Patient encounter procedure DO Sascha Furlong Work Phone: [facility] [address] Work Phone: Start: 07-03-2024 End: 07-03-2024 ambulatory DO Sascha Furlong Work Phone: [facility] Work Phone: Start: 06-26-2024 End: 06-26-2024 ambulatory DO Sascha Furlong Work Phone: [facility] Work Phone: Start: 06-26-2024 End: 06-26-2024 Patient encounter procedure DO Sascha Furlong Work Phone: [facility] Work Phone: Start: 06-13-2024 End: 06-13-2024 ambulatory CARLOS EDEN Not Available Start: 06-06-2024 End: 06-06-2024 ambulatory DO Sascha Furlong Work Phone: [facility] Work Phone: Start: 06-06-2024 End: 06-06-2024 Patient encounter procedure DO Sascha Furlong Work Phone: [facility] Work Phone: Start: 06-06-2024 Non-patient / Non-visit DO Den nis Furlong Work Phone: [facility] Work Phone: Start: 05-30-2024 End: 05-30-2024 ambulatory DO Sascha Furlong Work Phone: [facility] Work Phone: Start: 05-30-2024 End: 05-30-2024 Departed Referred DO Sascha Furlong Work Phone: [facility] [address] [place] Work Phone: Start: 05-28-2024 End: 05-28-2024 ambulatory DO Sascha Furlong Work Phone: [facility] Work Phone: Start: 05-28-2024 End: 05-28-2024 Patient encounter procedure DO Sascha Furlong Work Phone: [facility] Pain Management Work Phone: Start: 05-16-2024 End: 05-16-2024 ambulatory DO Sascha Furlong Work Phone: [facility] Work Phone: Start: 05-16-2024 End: 05-16-2024 Patient encounter procedure DO Sascha Furlong Work Phone: [facility] Work Phone: Start: 05-16-2024 Non-patient / Non-visit DO Den nis Furlong Work Phone: [facility] Work Phone: Start: 05-15-2024 End: 05-15-2024 ambulatory LEAH ROA Facility:[facility] Start: 05-15-2024 End: 05-15-2024 Patient encounter procedure LEAH ROA [facility] [place] Start: 05-09-2024 End: 05-09-2024 ambulatory CARLOS EDEN Not Available Start: 05-02-2024 End: 05-02-2024 ambulatory DO Sascha Furlong Work Phone: [facility] Work Phone: Start: 05-02-2024 End: 05-02-2024 Patient encounter procedure DO Sascha Furlong Work Phone: [facility] Pain Management [facility] Work Phone: Start: 05-01-2024 End: 05-01-2024 ambulatory BLOOMINGROSE Teagan [facility] Start: 04-24-2024 End: 04-24-2024 ambulatory DO Sascha Furlong Work Phone: [facility] Work Phone: Start: 04-24-2024 End: 04-24-2024 Patient encounter procedure DO Sascha Furlong Work Phone: [facility] Neurosurgery Work Phone: Start: 04-18-2024 Non-patient / Non-visit DO Den nis Furlong Work Phone: [facility] Work Phone: Start: 04-18-2024 End: 04-18-2024 ambulatory DO Sascha Furlong Work Phone: [facility] Work Phone: Start: 04-18-2024 End: 04-18-2024 Patient encounter procedure DO Sascha Furlong Work Phone: [facility] Work Phone: Start: 04-11-2024 End: 04-11-2024 ambulatory DO Sascha Furlong Work Phone: [facility] Work Phone: Start: 04-11-2024 End: 04-11-2024 Patient encounter procedure DO Sascha Furlong Work Phone: [facility] Work Phone: Start: 04-09-2024 Non-patient / Non-visit DO Den nis Furlong Work Phone: [facility] Neuro[facility] Work Phone: Start: 04-09-2024 End: 04-09-2024 Admission to same day surgery center DO Sascha Furlong Work Phone: [facility] [place] Start: 04-09-2024 End: 04-09-2024 ambulatory DO Sascha Furlong Work Phone: [facility] Work Phone: Start: 04-02-2024 End: 04-02-2024 Departed Referred DO Sascha Furlong Work Phone: [facility] Work Phone: Start: 04-02-2024 End: 04-02-2024 Patient encounter procedure DO Sascha Furlong Work Phone: [facility] Work Phone: Start: 04-02-2024 End: 04-02-2024 ambulatory DO Sascha Furlong Work Phone: [facility] Work Phone: Start: 03-29-2024 End: 03-29-2024 ambulatory DO Sascha Furlong Work Phone: [facility] Work Phone: Start: 03-29-2024 End: 03-29-2024 Patient encounter procedure DO Sascha Furlong Work Phone: [facility] Work Phone: Start: 03-20-2024 End: 03-20-2024 ambulatory Daria X Orzech Facility: [place] Start: 03-20-2024 End: 03-20-2024 Patient encounter procedure Daria X Orzech [facility] [place] Start: 03-13-2024 End: 03-13-2024 Patient encounter procedure DO Sascha Furlong Work Phone: [facility] [address] Work Phone: Start: 03-13-2024 End: 03-13-2024 ambulatory DO Sascha Furlong Work Phone: [facility] Work Phone: Start: 03-08-2024 End: 03-08-2024 Patient encounter procedure DO Sascha Furlong Work Phone: [facility] [address] Work Phone: Start: 03-08-2024 End: 03-08-2024 ambulatory DO Sascha Furlong Work Phone: [facility] Work Phone: Start: 02-21-2024 End: 02-21-2024 ambulatory DO Sascha Furlong Work Phone: [facility] Work Phone: Start: 02-21-2024 End: 02-21-2024 Patient encounter procedure DO Sascha Furlong Work Phone: [facility] Work Phone: Start: 02-16-2024 End: 02-16-2024 ambulatory Zac Alvino MUNIZ Facility:[id number] Start: 02-09-2024 End: 02-09-2024 ambulatory DO Sascha Furlong Work Phone: [facility] Work Phone: Start: 02-09-2024 End: 02-09-2024 Patient encounter procedure DO Sascha Furlong Work Phone: [facility] Work Phone: Start: 01-23-2024 End: 02-20-2024 ambulatory SASCHA G JALEESANG [facility] Start: 01-18-2024 End: 01-18-2024 ambulatory Zac MUNIZ Facility[facility] Start: 01-18-2024 End: 01-18-2024 Lab Drop off Zac MUNIZ [facility] Start: 01-18-2024 End: 01-18-2024 ambulatory Zac MUNIZ Facility:[facility] Start: 01-18-2024 End: 01-18-2024 Patient encounter procedure Zac MUNIZ [facility] Start: 01-11-2024 End: 01-11-2024 Patient encounter procedure DO Sascha Furlong Work Phone: [facility] [place] Work Phone: Start: 01-11-2024 End: 01-11-2024 ambulatory DO Sascha Furlong Work Phone: [facility] Work Phone: Start: 01-10-2024 End: 01-10-2024 Patient encounter procedure DO Sascha Furlong Work Phone: [facility] [place] Work Phone: Start: 01-10-2024 End: 01-10-2024 ambulatory DO Sascah Furlong Work Phone: [facility] Work Phone: Start: 01-02-2024 End: 01-03-2024 Emergency department patient visit DO Sascha Furlong Work Phone: [facility] Work Phone: Start: 12-30-2023 Office outpatient ne w 45 minutes Мария Hernandez [facility] Neurosurgery Start: 12-30-2023 End: 12-30-2023 Patient encounter procedure DO Sascha Furlong Work Phone: [facility] [place] Work Phone: Start: 12-30-2023 End: 12-30-2023 ambulatory DO Sascha Furlong Work Phone: [facility] Work Phone: Start: 12-28-2023 Chart abstracting Zaira pandya DPM Work Phone: [facility] Start: 12-28-2023 End: 12-28-2023 Office outpatient visit 15 minutes Zaira Cain DPM Work Phone: [facility] Comment on above: Pronation deformity of both feet (Primary Dx); Chronic pain of both knees Start: 12-28-2023 End: 12-28-2023 ambulatory ZAIRA CAIN Not Available Start: 12-22-2023 End: 01-20-2024 ambulatory [facility] Start: 12-19-2023 End: 12-22-2023 ambulatory [facility] Start: 12-15-2023 End: 12-15-2023 Patient encounter procedure DO Sascha Furlong Work Phone: [facility] Work Phone: Start: 12-15-2023 End: 12-15-2023 ambulatory DO Sascha Furlong Work Phone: [facility] Work Phone: Start: 12-14-2023 End: 12-15-2023 ambulatory [facility] Start: 12-14-2023 End: 12-14-2023 Office outpatient visit 25 minutes Sascha Sutotn DO Work Phone: [facility] Comment on above: Essential hypertensi on (Primary Dx); Hyperlipidemia, unspecified hyperlipidemia type; Midline low back pain without sciatica, unspecified chronicity; Class 1 obesity due to excess calories with serious comorbidity and body mass index (BMI) of 33.0 to 33.9 in adult; 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[facility]); Antiphospholipid syndrome ([facility]); Cubital tunnel syndrome on right; Paresthesias Start: 12-14-2023 End: 12-14-2023 ambulatory [facility] Start: 12-08-2023 End: 12-08-2023 Patient encounter procedure DO Sascha Kwanng Work Phone: [facility] [address] Work Phone: Start: 12-08-2023 End: 12-08-2023 ambulatory DO Sascha Marielong Work Phone: [facility] Work Phone: Start: 10-20-2023 End: 10-20-2023 Patient encounter procedure DO Sascha Marielong Work Phone: [facility] [place] Work Phone: Start: 10-20-2023 End: 10-20-2023 ambulatory DO Saschaabelardo Marielong Work Phone: [facility] Work Phone: Start: 09-19-2023 End: 09-19-2023 ambulatory Zac MUINZ Facility:[facility] Start: 09-19-2023 End: 09-19-2023 Patient encounter procedure Zac MUNIZ [facility] Start: 09-12-2023 End: 09-12-2023 Patient encounter procedure DO Sascha Furlong Work Phone: [facility] [place] Work Phone: Start: 09-12-2023 End: 09-12-2023 ambulatory DO Sascha Furlong Work Phone: [facility] Work Phone: Start: 09-05-2023 End: 09-05-2023 Patient encounter procedure DO Sascha Furlong Work Phone: [facility] [address] Work Phone: Start: 09-05-2023 End: 09-05-2023 ambulatory DO Sascha Furlong Work Phone: [facility] Work Phone: Start: 08-16-2023 End: 08-16-2023 ambulatory DO Sascha Furlong Work Phone: [facility] Work Phone: Start: 08-16-2023 End: 08-16-2023 Patient encounter procedure DO Sascha Furlong Work Phone: [facility] [place] Work Phone: Start: 08-08-2023 End: 08-08-2023 Patient encounter procedure Zac MUNIZ [facility] Start: 08-04-2023 End: 08-04-2023 ambulatory DO Sascha Furlong Work Phone: [facility] Work Phone: Start: 08-04-2023 End: 08-04-2023 Patient encounter procedure DO Sascha Furlong Work Phone: [facility] [place] Work Phone: Start: 06-03-2023 End: 06-03-2023 Patient encounter procedure Zac MUNIZ [facility] Start: 05-31-2023 End: 05-31-2023 ambulatory DO Sascha Furlong Work Phone: [facility] Work Phone: Start: 05-31-2023 End: 05-31-2023 Patient encounter procedure DO Sascha Furlong Work Phone: [facility] [place] Work Phone: Start: 05-18-2023 End: 05-18-2023 ambulatory DO Sascha Furlong Work Phone: [facility] Work Phone: Start: 05-18-2023 End: 05-18-2023 Patient encounter procedure DO Sascha Furlong Work Phone: [facility] [place] Work Phone: Start: 05-09-2023 Office outpatient vi sit 15 minutes Sascha G Furlong Work Phone: [facility] 250 DO Work Phone: Start: 05-09-2023 End: 05-09-2023 ambulatory DO Sascha Furlong Work Phone: [facility] Work Phone: Start: 05-09-2023 End: 05-09-2023 Patient encounter procedure DO Sascha Furlong Work Phone: [facility] [place] Work Phone: Start: 05-07-2023 End: 05-07-2023 Emergency department patient visit DO Sascha Furlong Work Phone: [facility] Work Phone: Start: 05-03-2023 End: 05-03-2023 Emergency department patient visit DO Sascha Furlong Work Phone: [facility] Work Phone: Start: 04-13-2023 End: 04-13-2023 Patient encounter procedure DO Sascha Furlong Work Phone: [facility]Res[facility] Work Phone: Start: 04-08-2023 End: 04-08-2023 Patient encounter procedure DO Sascha Furlong Work Phone: [facility] [place] Work Phone: Start: 04-04-[address] 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 Alfonso Trujillo Facility: Start: 03-29-[address] Alfonso Trujillo Fac ility:[facility] Start: 03-20-2023 End: 03-22-2023 ambulatory SHAIKH Claritza MULTANI Facility: Start: 01-31-2023 End: 01-31-2023 ambulatory DO Sascha Furlong Work Phone: [facility] Work Phone: Start: 01-31-2023 End: 01-31-2023 Patient encounter procedure DO Sascha Furlong Work Phone: [facility] [address] Work Phone: Start: 10-26-2022 End: 10-26-2022 ambulatory DO Sascha Furlong Work Phone: [facility] Work Phone: Start: 10-26-2022 End: 10-26-2022 Patient encounter procedure DO Sascha Furlong Work Phone: [facility] [address] Start: 09-29-2022 End: 09-29-2022 ambulatory DO Sascha Furlong Work Phone: [facility] Work Phone: Start: 09-29-2022 End: 09-29-2022 Patient encounter procedure DO Sascha Furlong Work Phone: [facility] [place] Start: 07-21-2022 End: 07-21-2022 Patient encounter procedure DO Sascha Furlong Work Phone: [facility] [address] Start: 04-14-2022 End: 04-14-2022 Patient encounter procedure DO Sascha Furlong Work Phone: [facility] [address] Start: 04-09-2022 End: 04-09-[address] AUDIE GONZALES . Facility: Start: 04-25-2018 End: 04-25-2018 Emergency department patient visit REBEKAH REED [facility] Imaging result normal Sascha G F urlong Work Phone: [facility] 250 DO Work Phone: Procedures Date Procedure Procedure Detail Performing Clinician Start: 08-29-2024 Plain X-ray of right hip MD Edenilson de oliveira Work Phone: Start: 06-14-2024 Adult depression screening assessment Sascha Furlong DO Work Phone: Start: 04-09-2024 Decompression of ulnar nerve DO [...] 05-09-2023 Diagnostic radiography of abdomen DO Den nis Furlong Work Phone: Start: 05-03-2023 CT of abdomen and pelvis without contrast DO Sascha Furlong Work Phone: Start: 04-04-2023 [facility] Angio DO Sascha Marielong Work Phone: Start: 09-29-2022 X-ray of left foot DO Sascha Marielong Work Phone: Start: 06-15-2017 Colonoscopy Saschaabelardo Marielong DO Work Phone: Start: 11-21-2016 Total colonoscopy Sascha Kwanng Work Phone: Arthroplasty of knee Sascha Sutton Work Phone: Arthroplasty of knee Zac MUNIZ Arthroscopy of knee Zac MUNIZ Cleft palate (disorder) Patr kevyn FLAVIO Colonoscopy Zac MUNIZ Decompression of median nerve Sascha Kwanng Work Phone: Decompression of median nerve Zac MUNIZ Dilation of esophagus Sascha G Cynthialong Work Phone: Esophagogastroduodenoscopy P joannaevans MUNIZ Hernia repair Sascha Kwan ng Work Phone: Malignant neoplasm o f skin (disorder) Zac MUNIZ Operation on the ear Sascha G Cynthialong Work Phone: Operative procedure on knee Sascha G Cynthialong Work Phone: Operative procedure on spinal structure Sascha G Cynthialong Work Phone: Procedure on shoulder Ronni k MUNIZ Procedure on spine Zac W LORENZO Radio-frequency abla tion system (physical object) Zacgreyson MUNIZ Repair of cleft palate Garth s Teagan Marielong Work Phone: Repair of middle ear Sascha [...] Td Vaccines (3 - Td or Tdap) [facility] Start: 06-15-2027 Screening for malign ant neoplasm of colon Colonoscopy [facility] Start: 06-14-2025 Adult BMI Screening Adult BMI Screen ing [facility] Start: 06-14-2025 Depression Screening Depression Scre ening [facility] Start: 06-14-2025 Tobacco Screening Tobacco Screening [facility] Start: 05-07-2025 End: 05-07-2025 Patient encounter procedure 05/07/2025 9:40 AM EDT Office Visit [facility] [address] [place] [address] [facility] - Family Medicine Start: 05-01-2025 Fall Risk Screening Fall Risk Screen ing [facility] Start: 05-01-2025 Medicare Annual Well ness Visit Medicare Annual Wellness Visit [facility] Start: 12-17-2024 End: 12-17-2024 Patient encounter procedure 12/17/2024 10:00 AM EST Office Visit [facility] Internal Medicine - Family Medicine [address] [place] [address] Sascha Sutton, DO [address] [place] [address] [facility] Start: 12-14-2024 Adult BMI Screening Adult BMI Screen ing [facility] Start: 12-14-2024 Depression Screening Depression Scre ening [facility] Start: 12-14-2024 Fall Risk Screening Fall Risk Screen ing [facility] Start: 12-14-2024 Tobacco Screening Tobacco Screening [facility] Start: 08-29-2024 Plain X-ray of right hip XR hi p RT min 2V(w/wo pelvis)* [facility] Start: 08-29-2024 XR Hip - right 2 Views [facility] Start: 08-20-2024 Patient referral [facility] Work Phone: Start: 07-22-2024 Influenza vaccination Influenza Vacc ine [facility] Start: 07-03-2024 Hemolytic complement CH50 [facility] Start: 06-14-2024 End: 06-14-2024 Patient encounter procedure 06/14/2024 1:30 PM EDT Office Visit [facility] [address] [place] [id number] Sascha Sutton DO [address], [facility] [place] [address] [facility] Start: 05-01-2024 End: 05-01-2024 Patient encounter procedure 05/01/2024 10:20 AM EDT Office Visit [facility] [address] [place] [address] [facility] Start: 04-14-2024 Medicare Annual Well ness Visit Medicare Annual [facility] [facility] Start: 04-09-2024 Hospital admission [facility] Start: 04-09-2024 End: 04-09-2024 [facility] Start: 03-13-2024 Hemolytic complement CH50 [facility] Start: 01-25-2024 End: 01-25-2024 Patient encounter procedure 01/25/2024 11:15 AM EST Office Visit [facility] [address] [address] [place] [address] Zaira Cain, DPM [address] [facility] [place] [address] [facility] Start: 01-10-2024 MRI of lumbar spine with contrast MR lumbar spine wo/w [facility] Start: 01-03-2024 CT Abdomen and Pelvi s WO contrast [facility] Start: 01-03-2024 CT of abdomen and pe lvis without contrast CT abdomen pelvis wo [facility] Start: 12-28-2023 End: 12-28-2023 Patient encounter procedure 12/28/2023 2:00 PM EST Office Visit [facility] [address] [facility] [place] [id number] Zaira Cain, DPM [address] [place] [address] [place] [address] [facility] Start: 12-14-2023 End: 12-14-2024 XR Lumbar spine 2 or 3 Views X-ray spine lumbar 2 or 3 views Imaging Routine Midline low back pain without sciatica, unspecified chronicity Expected: 12/14/2023, Expires: 12/14/2024 [facility] Work Phone: Comment on above: Expected: 12/14/2023 , Expires: 12/14/2024 Start: 12-08-2023 Hemolytic complement CH50 [facility] Start: 10-18-2023 COVID-19 Vaccine ( season) COVID-19 Vaccine () [facility] Start: 09-20-2023 COVID-19 Vaccine (3 - Pfizer risk series) COVID-19 Vaccine (3 - Pfizer risk series) [facility] Start: 09-05-2023 Hemolytic complement CH50 [facility] Start: 08-16-2023 [facility] Start: 05-31-2023 Hemolytic complement CH50 [facility] Start: 05-18-2023 [facility] Start: 05-12-2023 FUV, Provider: Alfonso Trujillo, Status: Pen, Time: 10:00 AM [facility]UV, Provider: Alfonso Trujillo, Status: Pen, Time: 10:00 AM [facility] 250 DO Work Phone: Start: 05-09-2023 FUV, Provider: Germaine Brown, Status: Pen, Time: 10:30 AM [facility]UV, Provider: Germaine Brown, Status: Pen, Time: 10:30 AM [facility] 250 DO Work Phone: Start: 04-04-2023 [facility] Start: 04-04-2023 [facility], Provider: Alfonso Trujillo, Status: Pen, Time: 11:00 AM [facility], Provider: Alfonso Trujillo, Status: Pen, Time: 11:00 AM [facility] 250 DO Work Phone: Start: 01-31-2023 Hemolytic complement CH50 level [facility] Start: 10-26-2022 Hemolytic complement CH50 level [facility] Start: 2022 Abdominal aortic ane urysm screening Abdominal Aortic Aneurysm (AAA) Screen [facility] Start: 2002 Screening for malign ant neoplasm of colon Colonoscopy [facility] Start: 1975 Adult BMI Follow Up Plan Adult BMI Follow Up Plan [facility] Start: 1957 Screening for malign ant neoplasm of colon [facility] Bilirubin measurement [facility] Body weight [facility] Calcium [Mass/time] in 24 hour Urine [facility] Calcium [Mass/volume ] in 24 hour Urine [facility] Calcium carbonate/To eligio in [facility] Calcium hydrogen phosphate dihydrate/Total in [facility] Calcium oxalate monohydrate/Total in [facility] Calcium phosphate level [facility] Calculus analysis wi th calculus photography [Interpretation] in [facility] Calculus analysis, qualitative [facility] Calculus analysis, quantitative [facility] Calculus analysis, quantitative, infrared spectroscopy [facility] Cellular material [Mass/mass] of Stone by Estimated [facility] Cholesterol [Mass/vo lume] in Serum or Plasma [facility] Complement C3 [Mass/volume] in Serum or Plasma [facility] Work Phone: Complement C3 [Mass/volume] in Serum or Plasma [facility] Complement C3 [Mass/volume] in Serum or Plasma [facility] Complement C3 [Mass/volume] in Serum or Plasma [facility] Complement C3 [Mass/volume] in Serum or Plasma [facility] Complement C3 [Mass/volume] in Serum or Plasma [facility] Complement C4 [Mass/volume] in Serum or Plasma [facility] Work Phone: Complement C4 [Mass/volume] in Serum or Plasma [facility] Complement C4 [Mass/volume] in Serum or Plasma [facility] Complement C4 [Mass/volume] in Serum or Plasma [facility] Complement C4 [Mass/volume] in Serum or Plasma [facility] Complement C4 [Mass/volume] in Serum or Plasma [facility] Cystine measurement [facility] Determination of willow culus chemical composition [facility] Evaluation procedure [facility] Hemolytic complement CH50 level [facility] Work Phone: Hydroxyapatite [Ener gy Difference] in 24 hour Urine [facility] Laboratory data interpretation [facility] Magnesium [Mass/time ] in 24 hour Urine [facility] Magnesium [Mass/volu me] in Urine [facility] MR Cervical spine WO contrast [facility] Newberyite/Total in [facility] Oxalate [Mass/time] in 24 hour Urine [facility] Patient Education [facility] Work Phone: Patient referral [facility] Work Phone: Phosphate [Mass/time ] in 24 hour Urine [facility] Phosphate [Mass/volu me] in Urine [facility] Specimen source subj ect [Type] [facility] Triamterene measurement [facility] Triple phosphate/Tot al in Stone [facility] Urate [Mass/time] in 24 hour Urine [facility] Urate [Mass/volume] in Urine [facility] Immunizations Immunization Date Immunization Notes Care Provider Elvi magana 03-06-2024 COVID-19 (MODERNA) 12Y and older DO Sascha Sutton Work Phone: [facility] 08-23-2023 Covid-19, Mrna, Lnp- s, Pf,erasmo-sucrose,30 Mcg/0.3ml Fall23 Sascha Sutton DO Work Phone: [employer] [facility] 08-23-2023 influenza virus vacc ine, unspecified formulation Zac MUNIZ [facility] 08-23-2023 Influenza, High-dose , Quadrivalent Sascha Sutton DO Work Phone: [facility] [employer] [facility] 08-23-2023 RSV, bivalent, prote in subunit RSVpreF, diluent reconstituted, 0.5 mL, PF Sascha Sutton DO Work Phone: [facility] 05-20-2023 tetanus toxoid, redu coni diphtheria toxoid, and acellular pertussis vaccine, adsorbed Zac MUNIZ [facility] 12-05-2022 influenza virus vacc ine, unspecified formulation Zac MUNIZ [facility] 12-05-2022 influenza, seasonal, injectable Sascha Sutton Work Phone: [facility] 250 DO Work Phone: 10-08-2022 Pfizer COVID-19 Vac Bivalent 30 MCG/0.3ML Intramuscular Suspension Sascha G Jaleesang Work Phone: [facility] 10-08-2022 SARS-COV-2 (COVID-19 ) Vaccine, Unspecified Sashca Furlong DO Work Phone: [facility] 09-07-2022 Fluzone High-Dose Quadrivalent 0.7 ML Intramuscular Suspension Prefilled Syringe Sascha Marielong Work Phone: [facility] 250 DO Work Phone: 09-07-2022 influenza virus vacc ine, unspecified formulation [employer] [facility] 04-16-2022 Prevnar 20 0.5 ML Intramuscular Suspension Prefilled Syringe Sascha Kwanng Work Phone: [facility] 09-23-2021 Lizeth COVID-19 Vac cine 0.5 ML Intramuscular Suspension Sascha Marielong Work Phone: [facility] 07-28-2021 influenza virus vacc ine, unspecified formulation Zac Sensipass [facility] 07-28-2021 influenza, injectabl e, quadrivalent, preservative free Sascha Marielong Work Phone: [facility] 250 DO Work Phone: 01-26-2021 Lizeth COVID-19 Vac cine 0.5 ML Intramuscular Suspension Sascha Marielong Work Phone: [facility] 08-22-2020 influenza virus vacc ine, unspecified formulation Zac MUNIZ [facility] 08-22-2020 Influenza, injectabl e, Madin Hilda Canine Kidney, preservative free, quadrivalent Sascha Marielong Work Phone: [facility] 250 DO Work Phone: 08-26-2019 zoster vaccine recombinant Sascha Marielong Work Phone: [facility] 08-20-2019 influenza virus vacc ine, unspecified formulation Zacgreyson MUNIZ [facility] 08-20-2019 Influenza, injectabl e, Madin Hilda Canine Kidney, quadrivalent with preservative Sascha G Furlong Work Phone: [facility] Sprooki DO Work Phone: 06-27-2019 zoster vaccine recombinant Sascha G Furlong Work Phone: [facility] 09-05-2018 influenza virus vacc ine, unspecified formulation Zac [employer]ip[employer] [facility] 09-05-2018 Influenza, injectabl e, Madin Galliano Canine Kidney, preservative free, quadrivalent Sascha G Furlong Work Phone: [facility] Sprooki DO Work Phone: 07-28-2017 Influenza, injectabl e, Madin Hilda Canine Kidney, preservative free, quadrivalent Sascha Furlong DO Work Phone: [facility] 09-16-2016 pneumococcal conjuga te vaccine, 13 valent Sascah G Furlong Work Phone: [facility] 09-09-2016 influenza virus vacc ine, unspecified formulation Zac Sensipass [facility] 09-09-2016 influenza, injectabl e, quadrivalent, contains preservative Sascha G Furlong Work Phone: [facility] Sprooki DO Work Phone: 12-05-2012 pneumococcal polysaccharide vaccine, 23 valent Sascha G Furlong Work Phone: [facility] 12-05-2012 tetanus toxoid, redu coni diphtheria toxoid, and acellular pertussis vaccine, adsorbed Sascha G Furlong Work Phone: [facility] 11-20-1990 hepatitis B vaccine, pediatric or pediatric/adolescent dosage Sascha Sutton Work Phone: [facility] 10-04-1990 hepatitis B vaccine, pediatric or pediatric/adolescent dosage Sascha Sutton Work Phone: [facility] Payers Date Payer Category Payer Unknown 2023 Self-pay [id number] 2022 Medicare [id number] 2022 Private Health Insurance [facility] [id number] 2022-Present [phone] [address] [place] [address] [id number] .[id number] 2022 Medicare [id number] 1959 Medicare [id number] 1959 Unknown [id number] 1957 Unknown [id number] 2..840.1.702751.3.579.2 .593 1957 Unknown [id number] 2.16.840.1.636917.3.579.2 .593 1957 Unknown [id number] 2.16.840.1.829339.3.579.2 .356 1957 Unknown [id number] 2.16.840.1.203682.3.579.2 .356 1957 Unknown [id number] 2.16.840.1.032937.3.579.2 .356 1957 Unknown [id number] 2.16.840.1.995344.3.579.2 .1285 1957 Unknown [id number] 2.16.840.1.592847.3.579.2 .1285 1957 Unknown [id number] 2.16.840.1.416280.3.579.2 .1285 1957 Unknown [id number] 2.16.840.1.954335.3.579.2 .1285 1957 Unknown [id number] 2.16.840.1.104985.3.579.2 .1285 1957 Unknown [id number] 2.16.840.1.198216.3.579.2 .1285 1957 Unknown [id number] 2.16.840.1.218115.3.579.2 .1258 1957 Unknown [id number] 2.16.840.1.206578.3.579.2 .1258 1957 Unknown [id number] 2.16.840.1.372317.3.579.2 .1258 1957 Unknown [id number] 2.16.840.1.653686.3.579.2 .1258 1957 Unknown [id number] 2.16.840.1.428094.3.579.2 .1258 1957 Unknown [id number] 2.16.840.1.655201.3.579.2 .1957 Unknown [id number] 2.16.840.1.925072.3.579.2 .1957 Unknown [id number] 2.16.840.1.607321.3.579.2 .1957 Unknown [id number] 2.16.840.1.639321.3.579.2 .727 1957 Unknown [id number] 2.840.1.342978.3.579.2 .1957 Unknown [id number] 2.840.1.249077.3.579.2 .727 1957 Unknown [id number] 2.840.1.636815.3.579.2 .727 Unknown [id number] Unknown Wyatt OLAYINKA [id number] Unknown [employer] [id number] Unknown [id number] 2.840.1.642396.3.579.2 .531 Unknown [id number] 2.840.1.201535.3.579.2 .531 Unknown [id number] 2.840.1.984138.3.579.2 .531 Unknown [id number] 2.840.1.899263.3.579.2 .531 Unknown [id number] 2.840.1.034548.3.579.2 .531 Unknown [id number] 2.840.1.772540.3.579.2 .531 Unknown [id number] 2.840.1.109001.3.579.2 .531 Unknown [id number] 2.16840.1.658235.3.579.2 .531 Unknown [id number] 2.16840.1.103360.3.579.2 .531 Unknown [id number] 2.16840.1.560417.3.579.2 .531 Unknown [id number] 2.16.840.1.468232.3.579.2 .531 Unknown [id number] 2.16840.1.094998.3.579.2 .531 Unknown [id number] 2..840.1.576130.3.579.2 .531 Unknown [id number] 2.16.840.1.021104.3.579.2 .531 Unknown [id number] 2.16.840.1.775890.3.579.2 .531 Unknown [id number] 2.16.840.1.899715.3.579.2 .531 Social History Date Type Detail Facility Start: 10-17-2019 End: 09-03-2024 Tobacco smoking status TNIS Ex-smoker (finding) [facility] Start: 1955 Sex Assigned At Male [facility] Start: 04-14-2023 End: 06-14-2024 No alcohol use No alcohol use [facility] Comment on above: pop occasioanl; quit in the 's; Start: 04-14-2023 End: 06-14-2024 Sex Assigned At Male [facility] Tobacco smoking status Never [facility] History of tobacco use Current smoker [facility] History of tobacco use Cigarette Smoker P [facility] History of tobacco use [facility] Start: 09-29-2022 End: 12-26-2023 Tobacco use and exposure Smokeless tobacco [facility] Start: 12-14-2023 End: 06-14-2024 Alcohol intake Ex-drinker (finding) [facility] Do you belong to any clubs or organizations such as pentecostalism groups, unions, fraternal or athletic groups, or school groups? Yes [facility] Are you now , , , , never or living with a partner? [facility] How often to you hav e a drink containing alcohol? Never [facility] Do you feel stress - tense, restless, nervous, or anxious, or unable to sleep at night because your mind is troubled all the time - these days [OSQ] Not at all [facility] Start: 1955 Sex Assigned At Not on file P [facility] Start: 12-26-2023 [facility] Start: 12-26-2023 End: 12-28-2023 Alcohol intake Lifetime non-drinker (finding) [facility] Start: 12-26-2023 Alcohol Comment none caffeine [facility] Has the electric, [employer], [employer], or water company threatened to shut off services in your home in past 12Mo No Voltage Security System Medical Equipment Procedure Code Equipment Code Equipment Origin al Text Equipment Identifier Dates CAGE [id number] 6DE G CAPSTONE FDA Start: 07-24-2019 SCREW [...] 6X45MM POLY AESCULAP FDA Start: 07-24-2019 CAGE [id number] 6DE G [employer] FDA Start: 07-24-2019 SCREW [...] 6X45MM POLY AESCULAP FDA Start: 07-24-2019 CAGE [id number] 6DE G [employer] FDA Start: 07-24-2019 SCREW [...] 6X45MM POLY AESCULAP FDA Start: 07-24-2019 CAGE [id number] 6DE G [employer] FDA Start: 07-24-2019 SCREW [...] 6X45MM POLY AESCULAP FDA Start: 07-24-2019 CAGE [id number] 6DE G [employer] FDA Start: 07-24-2019 SCREW [...] 6X45MM POLY AESCULAP FDA Start: 07-24-2019 CAGE [id number] 6DE G [employer] FDA Start: 07-24-2019 SCREW [...] 6X45MM POLY AESCULAP FDA Start: 07-24-2019 CAGE [id number] 6DE G [employer] FDA Start: 07-24-2019 SCREW [...] 6X45MM POLY AESCULAP FDA Start: 07-24-2019 CAGE [id number] 6DE G [employer] FDA Start: 07-24-2019 SCREW [...] 6X45MM POLY AESCULAP FDA Start: 07-24-2019 CAGE [id number] 6DE G [employer] FDA Start: 07-24-2019 SCREW [...] 6X45MM POLY AESCULAP FDA Start: 07-24-2019 CAGE [id number] 6DE G [employer] FDA Start: 07-24-2019 SCREW [...] 6X45MM POLY AESCULAP FDA Start: 07-24-2019 CAGE [id number] 6DE G [employer] FDA Start: 07-24-2019 SCREW [...] 6X45MM POLY AESCULAP FDA Start: 07-24-2019 CAGE [id number] 6DE G [employer] FDA Start: 07-24-2019 SCREW [...] 6X45MM POLY AESCULAP FDA Start: 07-24-2019 CAGE [id number] 6DE G [employer] FDA Start: 07-24-2019 SCREW [...] 6X45MM POLY AESCULAP FDA Start: 07-24-2019 CAGE [id number] 6DE G [employer] FDA Start: 07-24-2019 SCREW [...] 6X45MM POLY AESCULAP FDA Start: 07-24-2019 CAGE [id number] 6DE G [employer] FDA Start: 07-24-2019 SCREW [...] Ultra-Fine 1 mL 31 gauge x 5/16 [id number] CAGE [id number] 6DE G [employer] FDA Start: 07-24-2019 SCREW [...] 6X45MM POLY AESCULAP FDA Start: 07-24-2019 CAGE [id number] 6DE G [employer] FDA Start: 07-24-2019 SCREW [...] 6X45MM POLY AESCULAP FDA Start: 07-24-2019 CAGE [id number] 6DE G [employer] FDA Start: 07-24-2019 SCREW [...] 6X45MM POLY AESCULAP FDA Start: 07-24-2019 CAGE [id number] 6DE G [employer] FDA Start: 07-24-2019 SCREW [...] 6X45MM POLY AESCULAP FDA Start: 07-24-2019 CAGE [id number] 6DE G [employer] FDA Start: 07-24-2019 SCREW [...] 6X45MM POLY AESCULAP FDA Start: 07-24-2019 CAGE [id number] 6DE G [employer] FDA Start: 07-24-2019 SCREW [...] 6X45MM POLY AESCULAP FDA Start: 07-24-2019 CAGE [id number] 6DE G [employer] FDA Start: 07-24-2019 SCREW [...] 6X45MM POLY AESCULAP FDA Start: 07-24-2019 CAGE [id number] 6DE G [employer] FDA Start: 07-24-2019 SCREW [...] 6X45MM POLY AESCULAP FDA Start: 07-24-2019 CAGE [id number] 6DE G [employer] FDA Start: 07-24-2019 SCREW [...] 6X45MM POLY AESCULAP FDA Start: 07-24-2019 CAGE [id number] 6DE G [employer] FDA Start: 07-24-2019 SCREW [...] 6X45MM POLY AESCULAP FDA Start: 07-24-2019 CAGE [id number] 6DE G [employer] FDA Start: 07-24-2019 SCREW [...] 6X45MM POLY AESCULAP FDA Start: 07-24-2019 CAGE [id number] 6DE G [employer] FDA Start: 07-24-2019 SCREW [...] 6X45MM POLY AESCULAP FDA Start: 07-24-2019 CAGE [id number] 6DE G [employer] FDA Start: 07-24-2019 SCREW [...] 6X45MM POLY AESCULAP FDA Start: 07-24-2019 CAGE [id number] 6DE G [employer] FDA Start: 07-24-2019 SCREW [...] 6X45MM POLY AESCULAP FDA Start: 07-24-2019 CAGE [id number] 6DE G [employer] FDA Start: 07-24-2019 SCREW [...] 6X45MM POLY AESCULAP FDA Start: 07-24-2019 CAGE [id number] 6DE G [employer] FDA Start: 07-24-2019 SCREW [...] 6X45MM POLY AESCULAP FDA Start: 07-24-2019 CAGE [id number] 6DE G [employer] FDA Start: 07-24-2019 SCREW [...] 6X45MM POLY AESCULAP FDA Start: 07-24-2019 CAGE [id number] 6DE G [employer] FDA Start: 07-24-2019 SCREW [...] 6X45MM POLY AESCULAP FDA Start: 07-24-2019 CAGE [id number] 6DE G [employer] FDA Start: 07-24-2019 SCREW [...] 6X45MM POLY AESCULAP FDA Start: 07-24-2019 CAGE [id number] 6DE G [employer] FDA Start: 07-24-2019 SCREW [...] 6X45MM POLY AESCULAP FDA Start: 07-24-2019 CAGE [id number] 6DE G [employer] FDA Start: 07-24-2019 SCREW [...] 6X45MM POLY AESCULAP FDA Start: 07-24-2019 CAGE [id number] 6DE G [employer] FDA Start: 07-24-2019 SCREW [...] 6X45MM POLY AESCULAP FDA Start: 07-24-2019 CAGE [id number] 6DE G [employer] FDA Start: 07-24-2019 SCREW [...] 6X45MM POLY AESCULAP FDA Start: 07-24-2019 CAGE [id number] 6DE G [employer] FDA Start: 07-24-2019 SCREW [...] 6X45MM POLY AESCULAP FDA Start: 07-24-2019 CAGE [id number] 6DE G [employer] FDA Start: 07-24-2019 SCREW [...] 6X45MM POLY AESCULAP FDA Start: 07-24-2019 CAGE [id number] 6DE G [employer] FDA Start: 07-24-2019 SCREW [...] 6X45MM POLY AESCULAP FDA Start: 07-24-2019 CAGE [id number] 6DE G [employer] FDA Start: 07-24-2019 SCREW [...] 6X45MM POLY AESCULAP FDA Start: 07-24-2019 CAGE [id number] 6DE G [employer] FDA Start: 07-24-2019 SCREW [...] 6X45MM POLY AESCULAP FDA Start: 07-24-2019 CAGE [id number] 6DE G [employer] FDA Start: 07-24-2019 SCREW [...] /State Functional Status Date Assessment Result Facility 09-03-2024 Functional Status N/A [facility] 05-15-2024 Functional Status N/A [facility] 03-20-2024 Functional Status N/A [facility] 01-18-2024 Functional Status N/A [facility] 09-19-2023 Functional Status N/A [facility] Clinical Notes 04-09-2022 to 09-03-2024 Note Date & Type Note Facility 09-03-2024 Hospital Discharge instructions Patient Education 09/03/2024 10:59:52 Laser Therapy for Kidney Stones, Care After Laser Therapy for Kidney Stones, Care After After laser therapy for kidney stones, it is common to have: Pain. A burning feeling when you pee (urinate). Small amounts of blood in your pee (urine). A need to pee a lot. Parts of the kidney stone in your pee. Mild discomfort in your back when you pee. You may have this if you had a small mesh tube (stent) placed during the procedure. Follow these instructions at home: Medicines Take ggzj-gxe-vkbamob and prescription medicines only as told by your health care provider. If you were prescribed antibiotics, take them as told by your provider. Do not stop using the antibiotic even if you start to feel better. Ask your provider if the medicine prescribed to you: ?Requires you to avoid driving or using machinery. ?Can cause constipation. You may need to take these actions to prevent or treat constipation: ?Drink enough fluid to keep your pee pale yellow. ?Take dgym-tod-pcnarae or prescription medicines. ?Eat foods that are high in fiber, such as beans, whole grains, and fresh fruits and vegetables. ?Limit foods that are high in fat and processed sugars, such as fried or sweet foods. Activity If you were given a sedative during the procedure, it can affect you for several hours. Do not drive or operate machinery until your provider says that it is safe. Return to your normal activities as told by your provider. Ask your provider what activities are safe for you. General instructions Your provider may recommend that you drink a lot of water for a few hours after your procedure. If you have heart or kidney disease, ask your provider how much you should drink. You may be asked to strain your pee to collect any stone pieces that you pass. Your provider may have these pieces tested. Do not take baths, swim, or use a hot tub until your provider approves. Ask your provider if you may take warm baths to soothe the burning. Keep all follow-up visits. If you have a stent, you will need to go back to your provider to have it removed. Your provider may give you more instructions. Make sure you know what you can and cannot do. Contact a health care provider if: You have pain or a burning feeling that lasts for more than 2 days. You feel nauseous. You vomit more and more often. You have trouble peeing. You have pain that gets worse or does not get better with medicine. You have a fever or shaking chills. Get help right away if: You cannot pee, even when your bladder feels full. You faint. You have chest pain, shortness of breath, or cough up blood. You have: ?Bright red blood or blood clots in your pee. ?Severe pain or discomfort. ?Pain in your abdomen. ?Swelling in your legs. These symptoms may be an emergency. Get help right away. Call 911. Do not wait to see if the symptoms will go away. Do not drive yourself to the hospital. This information is not intended to replace advice given to you by your health care provider. Make sure you discuss any questions you have with your health care provider. Document Revised: 07/08/2023 Document Reviewed: 07/08/2023 [employer] Patient Education 2023 [employer]. 09/03/2024 10:59:51 Laser Therapy for Kidney Stones Laser Therapy for Kidney Stones Laser therapy for kidney stones is a procedure to break up rock-like masses that form inside the kidneys (kidney stones). It is done using a device that beams a strong light (laser) on the kidney stones. This breaks the stones up into small pieces. These small pieces may leave your body when you pee (urinate) or may be taken out during the procedure. You may need laser therapy if you have kidney stones that are painful or that are stopping you from being able to pee. Tell a health care provider about: Any allergies you have. All medicines you are taking, including vitamins, herbs, eye drops, creams, and uajc-unb-bgnerpo medicines. Any problems you or family members have had with anesthesia. Any bleeding problems you have. Any surgeries you have had. Any medical conditions you have. Whether you are or may be . What are the risks? Your health care provider will talk with you about risks. These may include: Infection. Bleeding. Allergic reactions to medicines. Damage to: ?The part of your body that drains pee (urine) from the bladder (urethra). ?The bladder. ?The tube that connects the bladder to the kidneys (ureter). Urinary tract infection (UTI). Urethral stricture. This is when the urethra is narrowed by scarring. Trouble peeing. Blockage of the kidney. This may be caused by a piece of kidney stone. What happens before the procedure? When to stop eating and drinking Follow instructions from your provider about what you may eat and drink. These may include: 8 hours before the procedure ?Stop eating most foods. Do not eat meat, fried foods, or fatty foods. ?Eat only light foods, such as toast or crackers. ?All liquids are okay except energy drinks and alcohol. 6 hours before the procedure ?Stop eating. ?Drink only clear liquids, such as water, clear fruit juice, black coffee, plain tea, and sports drinks. ?Do not drink energy drinks or alcohol. 2 hours before the procedure ?Stop drinking all liquids. ?You may be allowed to take medicines with small sips of water. If you do not follow your provider's instructions, your procedure may be delayed or canceled. Medicines Ask your provider about: ?Changing or stopping your regular medicines. These include any diabetes medicines or blood thinners you take. ?Taking medicines such as aspirin and ibuprofen. These medicines can thin your blood. Do not take them unless your provider tells you to. ?Taking xvuz-ezy-moomtcd medicines, vitamins, herbs, and supplements. Tests You may have a physical exam before the procedure. You may also have tests done. These may include: ?Imaging tests. ?Blood or pee tests. Surgery safety Ask your provider: ?How your surgery site will be marked. ?What steps will be taken to help prevent infection. These steps may include: ?Removing hair at the surgery site. ?Washing skin with a soap that kills germs. ?Taking antibiotics. General instructions Do not use any products that contain nicotine or tobacco for at least 4 weeks before the procedure. These products include cigarettes, chewing tobacco, and vaping devices, such as e-cigarettes. If you need help quitting, ask your provider. If you will be going home right after the procedure, plan to have a responsible adult: ?Take you home from the hospital or clinic. You will not be allowed to drive. ?Care for you for the time you are told. What happens during the procedure? An IV will be inserted into one of your veins. You will be given: ?A sedative. This helps you relax. ?Anesthesia. This keeps you from feeling pain. It will make you fall asleep for surgery. A tool with a camera on the end (ureteroscope) will be put into your urethra. It will be moved through your bladder to your kidney. It will send pictures to a screen in the operating room. This will show what parts of your kidney need to be treated. A tube will be put through the ureteroscope. It will be moved into your kidney. The laser device will be put into your kidney through the tube. The laser will be used to break up the kidney stones. A tool with a tiny wire basket may be put through the tube into your kidney. This can help remove the small pieces of the kidney stone. A small mesh tube (stent) may be placed to allow your kidney to drain. The tube and ureteroscope will be taken out at the end of the surgery. The procedure may vary among providers and hospitals. What happens after the procedure? Your blood pressure, heart rate, breathing rate, and blood oxygen level will be monitored until you leave the hospital or clinic. If you had a stent placed, it may have a string that will be secured to your skin. This helps your provider remove the stent. You may be given a strainer to collect any stone pieces that you pass in your pee. Your provider may have these tested. This information is not intended to replace advice given to you by your health care provider. Make sure you discuss any questions you have with your health care provider. Document Revised: 07/08/2023 Document Reviewed: 07/08/2023 [employer] Patient Education 2023 [employer]. Follow Up Care 09/19/2023 10:33:39 With:FLAVIO ONEAL, Zac De Oliveira, URL Address: [facility] [address] , [place] [address]- [phone] When: Unknown [facility] [place] 09-03-2024 Note Patient Education Nephrology Laser Therapy for Kidney Stones, Care After After laser therapy for kidney stones, it is common to have: ? Pain. ? A burning feeling when you pee (urinate). ? Small amounts of blood in your pee (urine). ? A need to pee a lot. ? Parts of the kidney stone in your pee. ? Mild discomfort in your back when you pee. You may have this if you had a small mesh tube (stent) placed during the procedure. Follow these instructions at home: Medicines ? Take ovhd-mjj-otqjyuj and prescription medicines only as told by your health care provider. ? If you were prescribed antibiotics, take them as told by your provider. Do not stop using the antibiotic even if you start to feel better. ? Ask your provider if the medicine prescribed to you: ? Requires you to avoid driving or using machinery. ? Can cause constipation. You may need to take these actions to prevent or treat constipation: ? Drink enough fluid to keep your pee pale yellow. ? Take geco-xbq-ytwoycg or prescription medicines. ? Eat foods that are high in fiber, such as beans, whole grains, and fresh fruits and vegetables. ? Limit foods that are high in fat and processed sugars, such as fried or sweet foods. Activity ? If you were given a sedative during the procedure, it can affect you for several hours. Do not drive or operate machinery until your provider says that it is safe. ? Return to your normal activities as told by your provider. Ask your provider what activities are safe for you. General instructions ? Your provider may recommend that you drink a lot of water for a few hours after your procedure. If you have heart or kidney disease, ask your provider how much you should drink. ? You may be asked to strain your pee to collect any stone pieces that you pass. Your provider may have these pieces tested. ? Do not take baths, swim, or use a hot tub until your provider approves. Ask your provider if you may take warm baths to soothe the burning. ? Keep all follow-up visits. If you have a stent, you will need to go back to your provider to have it removed. Your provider may give you more instructions. Make sure you know what you can and cannot do. Contact a health care provider if: ? You have pain or a burning feeling that lasts for more than 2 days. ? You feel nauseous. ? You vomit more and more often. ? You have trouble peeing. ? You have pain that gets worse or does not get better with medicine. ? You have a fever or shaking chills. Get help right away if: ? You cannot pee, even when your bladder feels full. ? You faint. ? You have chest pain, shortness of breath, or cough up blood. ? You have: ? Bright red blood or blood clots in your pee. ? Severe pain or discomfort. ? Pain in your abdomen. ? Swelling in your legs. These symptoms may be an emergency. Get help right away. Call 911. ? Do not wait to see if the symptoms will go away. ? Do not drive yourself to the hospital. This information is not intended to replace advice given to you by your health care provider. Make sure you discuss any questions you have with your health care provider. Document Revised: 07/08/2023 Document Reviewed: 07/08/2023 [employer] Patient Education ? 2023 [employer] Laser Therapy for Kidney Stones Laser therapy for kidney stones is a procedure to break up rock-like masses that form inside the kidneys (kidney stones). It is done using a device that beams a strong light (laser) on the kidney stones. This breaks the stones up into small pieces. These small pieces may leave your body when you pee (urinate) or may be taken out during the procedure. You may need laser therapy if you have kidney stones that are painful or that are stopping you from being able to pee. Tell a health care provider about: ? Any allergies you have. ? All medicines you are taking, including vitamins, herbs, eye drops, creams, and xvqc-itm-ncvxqqg medicines. ? Any problems you or family members have had with anesthesia. ? Any bleeding problems you have. ? Any surgeries you have had. ? Any medical conditions you have. ? Whether you are or may be . What are the risks? Your health care provider will talk with you about risks. These may include: ? Infection. ? Bleeding. ? Allergic reactions to medicines. ? Damage to: ? The part of your body that drains pee (urine) from the bladder (urethra). ? The bladder. ? The tube that connects the bladder to the kidneys (ureter). ? Urinary tract infection (UTI). ? Urethral stricture. This is when the urethra is narrowed by scarring. ? Trouble peeing. ? Blockage of the kidney. This may be caused by a piece of kidney stone. What happens before the procedure? When to stop eating and drinking Follow instructions from your provider about what you may eat and drink. These may include: ? 8 hours before the procedure ? Stop eating most foods. Do not e (more content not included)... [facility] 05-15-2024 Hospital Discharge instructions Patient Education 05/15/2024 [...] urethra. Follow these instructions at home: Take qwkd-jmb-tswixhx and prescription medicines only as told by [...] provider. Document Revised: 05/26/2022 Document Reviewed: 05/26/2022 [employer] Patient Education 2022 [employer]. Follow Up Care 03/20/2024 12:59:39 With:LEAH ROA PA-C, URL Address: [address] [place] [address] When: Unknown [facility] 03-20-2024 Hospital Discharge instructions Patient Education 03/20/2024 [...] nerve stimulation). ?For women, using a medical coding manager to prevent urine leaks. This is [...] right after experiencing incontinence. General instructions Take fnlr-tcy-myxclzm and prescription medicines only as told by [...] important. Where to find more information National [place] of Diabetes and Digestive and Kidney Diseases: www.niddk.nih.gov [employer]: www.urologyhealth.org Contact a health care [...] provider. Document Revised: 06/12/2021 Document Reviewed: 06/12/2021 [employer] Patient Education 2022 [employer]. 03/20/2024 13:11:28 Cancer Screening for Men Cancer [...] if anything looks unusual. Men with a ncrilx-aswh-capxfz risk for skin cancer may want to see a skin care instructor (morning show host) for an annual body check. What are the benefits of screening? Cancer screening is done to look for cancer in the very early stages, before it spreads and becomes harder to treat and before you would start to notice symptoms. Finding cancer early improves the chances of successful treatment. It may save your life. Where to find more information [place] [employer]: www.cancer.org Centers for Disease Control and Prevention: www.cdc.gov National Cancer [place]: www.cancer.gov Contact a health care provider if: [...] provider. Document Revised: 04/05/2022 Document Reviewed: 10/03/2020 [employer] Patient Education 2022 [employer] 03/20/2024 13:11:20 Urinary Incontinence Urinary Incontinence Urinary [...] nerve stimulation). ?For women, using a medical coding manager to prevent urine leaks. This is [...] right after experiencing incontinence. General instructions Take jpza-jzh-thpgirv and prescription medicines only as told by [...] important. Where to find more information National [place] of Diabetes and Digestive and Kidney Diseases: www.niddk.nih.gov [employer] [employer]: www.urologyhealth.org Contact a health care [...] provider. Document Revised: 06/12/2021 Document Reviewed: 06/12/2021 [employer] Patient Education 2022 [employer]. 03/20/2024 13:11:17 Kidney Stones, Yqnr-bn-Aejr Kidney Stones Kidney stones are rock-like masses [...] Follow these instructions at home: Medicines Take brip-lzg-xhtxwsm and prescription medicines only as told by [...] provider. Document Revised: 07/12/2022 Document Reviewed: 07/12/2022 [employer] Patient Education 2022 [employer]abeam. Follow Up Care 03/16/2024 08:31:59 With:FRANCIS Jimenez APRN, Daria Lechuga, NEYMAR, URL Address: When: Unknown Comments:8 wk w/ PVR [facility] 02-09-2024 Evaluation note Authored February 09, 2024 [...] a follow-up for surgical consult with Dr. Khaill. [facility] Work Phone: 1(447) 103-227302-28-2024 Hospital Discharge instructions Patient Education 01/18/2024 09:34:25 [...] Follow these instructions at home: Medicines Take fiox-jke-qqgketq and prescription medicines only as told by [...] provider. Document Revised: 10/04/2022 Document Reviewed: 07/12/2022 [employer] Patient Education 2022 [employer]. 01/18/2024 09:34:24 Lithotripsy Lithotripsy Lithotripsy is a [...] including vitamins, herbs, eye drops, creams, and zagg-mvy-hqczviq medicines. Any problems you or family members [...] provider tells you to take them. Taking ikzy-lsy-ypdqumk medicines, vitamins, herbs, and supplements. Tests You [...] provider. Document Revised: 10/04/2022 Document Reviewed: 07/12/2022 [employer] Patient Education 2022 [employer]. Follow Up Care 01/03/2024 14:10:04 With:FLAVIO ONEAL, Zac De Oliveira, URL Address: [facility] [address] , [place] [address]- When: Unknown [facility] 02-09-2024 Evaluation note* Encounter Date Diagnosis Assessment [...] issue: - Obtain release of information from [facility] for physical therapy notes - Schedule bilateral upper extremity EMG - Follow up in six weeks or after EMG completion Dec, Other Note: Patient h as a history of lupus, previous surgeries, and steroid injections in the knees. [facility] Other 02-07-2024 History of Present illness Narrative* Zaira Cain HUGOEduard - 12/28/2023 2:00 PM EST Patient presents [...] X-rays 3 views taken left foot at [facility] reveal fracture of the head of the [...] may cancel that appointment. documented in this encounterCenterpoint [facility] [id number] History of Present illness Narrative* Sashca Sutton, DO - 12/14/2023 9:30 AM EST [...] Objective Physical Exam Exam conducted with a slip cover cutter present (Junior Collins MS III). Constitutional: Appearance: [...] views; Future - [facility] [place], [place]; Future Check x-ray of lumbar spine. [...] pain. Monitor portion sizes. 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[facility]) Follow up with product safety test engineer as directed Antiphospholipid syndrome ([facility]) Follow-up with specialist as directed. Cubital tunnel syndrome on right Can try an elbow pad to see if that helps. Consider ortho consult. Paresthesias Intermittent paresthesias on the left side of his neck. Possibly coming from cervical disc disease.Previous cervical CT scan reviewed and did show moderate degenerative disc disease with encroachment of the neural foramina. [facility] Discharge instructions Patient Education 09/19/2023 10:21:28 [...] include: ?8 oz (237 mL) of milk, wwjfqkn-gsvdhxqocvot-moxmy milk, and calcium- fortifiedfruit juice. Calcium-fortified means [...] ?Spinach (cooked), rhubarb, beets, sweet potatoes, and Iraqi chard. ?Peanuts. ?Potato chips, lebanese fries, and baked potatoes with skin on. ?Nuts and nut products. ?Chocolate. If you regularly take a diuretic medicine, make sure to eat at least 1 or 2 servings of fruits or vegetables that are high in potassium each day. These include: ?Avocado. ?Banana. ?[place], prune, carrot, or tomato juice. ?Baked potato. [...] magnesium, fish oil, or vitamin B6. Take faqn-nwa-gsqkhhb and prescription medicines only as told by [...] Casseroles. Pizza. Lasagna. Frozen meals. Potato chips. Nigerien fries. The items listed above may not [...] provider. Document Revised: 07/19/2022 Document Reviewed: 07/19/2022 [employer] Patient Education 2022 [employer]am. Follow Up Care 08/08/2023 12:11:26 With:Zac MUNIZ MD, URL Address: [facility] [address] [place] [address] [phone] When: Unknown [facility] 07-05-2023 Hospital Discharge instructions Follow Up Care 05/25/2023 15:06:06 With:Zac MUNIZ MD, URL Address: [facility] [address] [place] [address]- [phone] When: Unknown [facility] 05-15-2023 Procedure [facility]05-15-2023 Hospital Discharge instructions Additional Instructions DISCHARGE INSTRUCTIONS FOR CARDIAC STAVE BLOCK ROLLER PHONE NUMBER OF YOUR PHYSICIAN: [phone] PROCEDURE: Heart Cath The following instructions have [...] cold, numb, blue or white, call the manufacturing team member immediately. 4. ACTIVITY: You are advised to [...] bottle, follow the instructions on the bottle. [facility] is not responsible for incorrect prescription information provided by the patient during their visit. Do not stop your medications without consulting your health care provider. Please take the list with you to your next doctor's appointment.[facility] Work Phone: 1(804) 252-372304-30-2023 Chief complaint Narrative - Reported* VALENTIN TORRE is being seen for a consultation for chest pain. * 67-year-old gentleman seen in cardiology consultation at the request of Dr. Sutton following an episode of severe chest discomfort with left and right neck radiation that occurred [facility] this past Tuesday with subsequent stress imaging performed after he was admitted at [place] that was reportedly unremarkable. Patient has since [...] with a heart catheterization sometime next week -[facility] [address] DO Work Phone: 1(604) 105-672205-20-2022 NotePROCEDURE: XR SHOULDER RT 2V or > HISTORY: Unspecified fall COMPARISON: None. FINDINGS: BONES:Narrowing of the acromioclavicular joint without significant undersurface osteophytes. Narrowing of the glenohumeral joint without fracture or dislocation. SOFT TISSUES:No visible soft tissue swelling. EFFUSION:None visible. OTHER: Negative. IMPRESSION: 1. No acute bone abnormality. 2. Mild-moderate degenerative changes. Electronically authenticated by: PRIMO GALE Date: 2022-04-09 17:07[facility]05[facility]2022 NotePROCEDURE: XR ELBOW RT MIN 3 VIEWS HISTORY: Unspecified fall COMPARISON: None. FINDINGS: BONES:Mild-moderate degenerative changes. No fracture, dislocation, bone lesion. SOFT TISSUES:No visible soft tissue swelling. EFFUSION:None visible. OTHER: Negative. IMPRESSION: 1. No acute bone abnormality of the right elbow. Electronically authenticated by: PRIMO GALE Date: 2022-04-09 16:53[facility] Future Appointments Appointment Date:08/08/2023 11:45:00 AM Scheduled Provider:Zac MUNIZ MD Location:[facility] Appointment Type:URO Office Visit [facility] evaluation + Plan note Future Appointments Appointment Date:09/19/2023 09:30:00 AM Scheduled Provider:Zac MUNIZ MD Location:[facility] Appointment Type:URO Office Visit [facility] evaluation + Plan note Future Appointments Appointment Date:03/23/2024 08:15:00 AM Scheduled Provider:Zac MUNIZ MD Location:[facility] Appointment Type:URO Office Visit Diagnostic Tests Pending * Electrolyte Panel 09/19/23 [facility] evaluation + Plan note Future Appointments Appointment Date:03/23/2024 08:15:00 AM Scheduled Provider:Zac MUNIZ MD Location:[facility] Appointment Type:URO Office Visit [facility] Evaluation + Plan note Future Appointments Appointment Date:03/23/2024 08:15:00 AM Scheduled Provider:Zac MUNIZ MD Location:[facility] Appointment Type:URO Office Visit Diagnostic Tests Pending * Calculi [facility] Appointment Date:05/15/2024 09:30:00 AM Scheduled Provider:FRANCIS Jimenez APRN, [place] X Location:[facility] Appointment Type:URO Office Visit Appointment Date:09/03/2024 09:45:00 AM Scheduled Provider:Zac MUNIZ MD Location:[facility] Appointment Type:URO Office Visit [facility] evaluation + Plan note Future Appointments Appointment Date:09/03/2024 09:45:00 AM Scheduled Provider:Zac MUNIZ MD Location:[facility] Appointment Type:URO Office Visit [facility] evaluation noteNo assessment information available [facility] Work Phone: Evaluation note* Diagnosis Essential hypertension- Primary Unspecified essential hypertension Hyperlipidemia, unspecified hyperlipidemia type Midline low back pain without sciatica, unspecified chronicity Class 1 obesity due to excess calories with serious comorbidity and body mass index (BMI) of 33.0 to 33.9 in adult 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[facility] Unspecified diffuse connective tissue disease Antiphospholipid syndrome ([facility]) Primary hypercoagulable state Cubital tunnel syndrome on right Paresthesias Disturbance of skin sensation documented [facility]* Diagnosis Pronation deformity of both feet- Primary Chronic pain of both knees documented in this encounter [facility] HealthcareEvaluation note* Diagnosis Onset Date Resolution Status [...] of lumbosacral spine acute Chronic pain acute [facility] Work Phone: Evaluation note* Diagnosis Onset [...] of lumbosacral spine acute Chronic pain acute [facility] Work Phone: Evaluation note* Diagnosis Onset [...] of lumbosacral spine acute Chronic pain acute [facility] Work Phone: Evaluation note* Diagnosis Onset [...] of lumbosacral spine acute Chronic pain acute [facility] Work Phone: Evaluation note* Diagnosis Onset Date [...] of lumbosacral spine acute Chronic pain acute [facility] Work Phone: Evaluation note* Diagnosis Onset [...] of lumbosacral spine acute Chronic pain acute [facility] Work Phone: Evaluation note* Diagnosis Onset [...] of lumbosacral spine acute Chronic pain acute [facility] Work Phone: Evaluation note* Diagnosis Onset [...] pain acute Osteoarthritis of right hip acute [facility] Work Phone: Evaluation note* Diagnosis Onset [...] pain acute Osteoarthritis of right hip acute [facility] Work Phone: History general Narrative - Reported* [...] History bilateral CTR Surgical History back surgery 2018 Hospitalization History See above imagine Other History of Present illness Narrative* The [...] medication regimen. He denies medication side effects. [facility] [employer] [address] DO Work Phone: Hospital course Narrative No data available for this section [facility] Hospital Discharge instructions No data available for this section [facility] Hospital Discharge instructions Additional Instructions Your [...] or concerns, do not hesitate to come back.[facility] Work Phone: Hospital Discharge instructions Additional Instructions [...] appointment to see your physician in two weeks.[facility] Work Phone: InstructionsNot on filedocumented in this encounter [employer] SystemInstructionsNot on filedocumented in this encounter [employer] note No data available for this section [facility] reason for referral (narrative)* Consultation (Routine) - Authorized Specialty Diagnoses / Procedures Referred By Jd t Referred To Contact Rehabilitation Diagnoses Midline low back pain without sciatica, unspecified chronicity Sascha Sutton DO [address] [facility] [place] [address] [facility] [address] [place] [address] Referral ID Status Reason Start Date Expiration Date Visits Requested Visits Authorized [id number] Authorized Specialty Services Required 12/14/2023 12/13/2024 1 1 [employer] Summary Purpose Family History Relationship Condition Age [...] Date/ Time Advance Directives Yes January 29, 024 3:03pm Advance Directive Response Recorded Date/ Time Advance Directives Yes May 28 2:11pm Advance Directive Response Recorded Date/ Time Advance Directives Yes June 27, 024 2:59pm Chief Complaint and Reason for [...] Chief Complaint f/u emg,mri results sx consult M48. 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 MCKENZIE KHALIL Reason for [...] Chief Complaint f/u emg,mri results sx consult M48. 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 MCKENZIE KHALIL MARÍA LUMBAR [...] Elbow Ulnar Neuropathy of Upper Right Elbow SALES MANAGEMENT INTERN REFF BY DR. MCKENZIE KHALIL MARÍA LUMBAR [...] Elbow Ulnar Neuropathy of Upper Right Elbow SALES MANAGEMENT INTERN REFF BY DR. MCKENZEI KHALIL MARÍA LUMBAR FACET MBB L2 L3/DS [...] Elbow Ulnar Neuropathy of Upper Right Elbow SALES MANAGEMENT INTERN REFF BY DR. MCKENZIE KHALIL MARÍA LUMBAR [...] Elbow Ulnar Neuropathy of Upper Right Elbow SALES MANAGEMENT INTERN REFF BY DR. MCKENZIE KHALIL MARÍA LUMBAR [...] Elbow Ulnar Neuropathy of Upper Right Elbow SALES MANAGEMENT INTERN REFF BY DR. MCKENZIE KHALIL MARÍA LUMBAR [...] Elbow Ulnar Neuropathy of Upper Right Elbow SALES MANAGEMENT INTERN REFF BY DR. MCKENZIE KHALIL MARÍA LUMBAR [...] Elbow Ulnar Neuropathy of Upper Right Elbow SALES MANAGEMENT INTERN REFF BY DR. MCKENZIE KHALIL MARÍA LUMBAR [...] Elbow Ulnar Neuropathy of Upper Right Elbow SALES MANAGEMENT INTERN REFF BY DR. MCKENZIE KHALIL MARÍA LUMBAR [...] Elbow Ulnar Neuropathy of Upper Right Elbow SALES MANAGEMENT INTERN REFF BY DR. MCKENZIE KHALIL MARÍA LUMBAR [...] pain Osteoarthritis of right hip Chief Complaint MARÍA LUMBAR FACET R FA L4 L5/CJ F/U AFTER MARÍA LUMB RFA M35.00 Z79.899 M15.0 CERVICAL MBB C3 C4 LEFT/CJ F/U LEFT CERVICAL MBB LEFT CERVICAL MBB C3 C4/DS F/U AFTER 2ND LEFT CERVICAL MBB LEFT CERVICAL FACET RFA C3 C4 /VW F/U LEFT CERVICAL FACET RFA CONSULT DR MCLEOD M23.539 - Pain in right hip Reason for Visit Arthritis of facet j [...] region without neurogenic claudication (M48.061) Referral Organization [facility] urosurgery Referring Provider First Name Мария Referring Provider Last Name David Referring Provider Specialty Nurse Pract christianacarer Referred Organization [facility] Referred Provider Primo Jenkins Referred Address [address] [place], [place],[address] Referred Provider Specialty Neurology Referral Priority Routine [...] section and content) DATE CREATED AUTHOR 05/09/2018 [facility] DATE CREATED AUTHOR AUTHOR'S ORGANIZ ATION 05/10/2018 [facility] DATE CREATED AUTHOR AUTHOR'S ORGANIZ ATION 03/29/2023 [facility] DATE CREATED AUTHOR AUTHOR'S ORGANIZ ATION 04/01/2023 [facility] DATE CREATED AUTHOR AUTHOR'S ORGANIZ ATION 04/05/2023 [facility] DATE CREATED AUTHOR AUTHOR'S ORGANIZ ATION 12/18/2023 [facility] DATE CREATED AUTHOR AUTHOR'S ORGANIZ ATION 02/20/2024 [facility] DATE CREATED AUTHOR AUTHOR'S ORGANIZ ATION 05/01/2024 [facility] DATE CREATED AUTHOR AUTHOR'S ORGANIZ ATION 08/18/2024 [facility] DATE CREATED AUTHOR AUTHOR'S ORGANIZ ATION 08/31/2024 [facility] DATE CREATED AUTHOR AUTHOR'S ORGANIZ ATION 09/05/2024 [facility] Care Teams (unrecognized sec tion and content) Personnel Name: HERMAN FERRELL SASCHA Address: Address: [address] [place] [id number] Team Status: Active Member Role Status Dates [...] 2024 End: August 20, 2024 Team Status: Inactive Member Role Status Radha Mcleod MD Primary Care Provider Active Start: August 29, 2024 End: August 29, 2024 Jaime Murcia II, MD Attending Provider Active Start: August 29, 2024 End: August 29, 2024 Team Status: Active Member Role Status Radha Mcleod MD Primary Care Provider Active Start: August 29, 2024 Jaime Murcia II, MD Attending Provider Active Start: August 29, 2024 Team Status: Inactive Member Role [...] Provider Active Start: May 16, 2024 Edenilson Mcleod MD Attending Provider Active Sta rt: May 16, 2024 Team Status: Inactive Member Role Status Dates Sascha Mariegeneosmani , DO Primary Care Provider Active Start: May 16, 2024 End: May 16, 2024 Edenilson Mcleod MD Attending Provider Active Sta rt: May 16, 2024 End: May 16, 2024 Team Status: Inactive Member Role Status Dates Sascha Mariecierra , DO Primary Care Provider Active Adam Davis MD Attending Provider Active Team Status: Active Member Role Status Dates Saschaabelardo Mariegeneng , DO Primary Care Provider Active Team Status: Inactive Member Role Status Dates Saschaabelardo Mariegeneng , DO Primary Care Provider Active Christine Sanchez SALES MANAGEMENT INTERN-C Attending Provider Active Team Status: Inactive Member Role Status Dates Sascha Mariegeneng , DO Primary Care Provider Active KARIN Madrigal Attending Provider Active Team Status: Inactive Member Role Status Dates Sascha Kwanng , DO Primary Care Provider Active Melanie Trujillo DO Attending Provider Active Team Status: Inactive Member Role Status Dates Sascha Sutton , DO Primary Care Provider, Attending Simba pfeiffer Active Team Status: Inactive Member Role Status Dates Sascha Cynthiacierra , DO Primary Care Provider Active Edenilson Reinoso Jr, MD Emergency Provider Active Team Status: Inactive Member Role Status Dates Sascha Mariecierra , DO Primary Care Provider Active Romel Orta , DO Emergency Provider Active Team Status: Inactive Member Role Status Dates Sascha Cynthiacierra , DO Primary Care Provider Active Zac Muniz MD Attending Provider Active Team Status: Inactive Member Role Status Dates Saschaabelardo Mariecierra , DO Primary Care Provider Active Christine Sanchez SALES MANAGEMENT INTERN-C Attending Provider Active Zac Muniz MD Referring Provider Active Team Status: Inactive Member Role Status Dates Sascha Cynthiacierra , DO Primary Care Provider Active Romel Davis MD Attending Provider Active Team Status: Inactive Member Role Status Dates Sascha Cynthiageneng , DO Primary Care Provider Active Start: September 12, 2023 End: September 12, 2023 Romel Davis MD Attending Provider Active St art: September 12, 2023 End: September 12, 2023 Team Status: Inactive Member Role Status Dates Sascha Mariecierra , DO Primary Care Provider Active Start: October 20, 2023 End: October 20, 2023 Zac Muniz MD Attending Provider Active St art: October 20, 2023 End: October 20, 2023 Team Status: Inactive Member Role Status Dates Sascha Sutton DO Primary Care Provider Active Start: December 08, 2023 End: December 08, 2023 Romel Davis MD Attending Provider Active St art: December 08, 2023 End: December 08, 2023 Data Base Design Analyst Relationship Specialty Start Date End Date Sascha Sutton DO [address] [place] [address] PCP - General Family Medicine 09/23/22 Team Status: Inactive Member Role Status Dates Sascha Sutton DO Primary Care Provide r, Attending Provider Active Start: December 15, 2023 End: December 15, 2023 Data Base Design Analyst Relationship Specialty Start Date End Date Sascha Sutton MD [address] [place] [address] PCP - General Family Medicine 12/28/23 Team [...] Team Status: Inactive Member Role Status Dates aSscha Sutton DO Primary Care Provider Active Start: [...] DO Primary Care Provider Active Start: March 29, [...] May 02, 2024 End: May 02, 2024 Data Base Design Analyst Relationship Specialty Start Date End Date Sascha Sutton DO [address] [facility] [place] [address] PCP - General Family Medicine 09/23/22 Goals (unrecognized section and content) Goals may [...] encounterGoals may be documented in an alternate section No data available for this section Reason for Visit (unrecogniz ed section and content) Reason Comments Foot Orthotics Reason Comments Med Refill FOR RECORDS PERTAINING TO PATIENTS WHO ARE [...] BE BASED ON THE PRIMARY CLINICAL RECORDS. [employer] provides no warranty or guarantee of the accuracy or completeness of information in this document.
--- NOTE | 2024-09-06 12:27 | ECG_ITS ---
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
--- NOTE | 2024-09-06 13:18 | P.GSHP_ITS ---
History of Present Illness History of Present Illness Chief complaint: RIGHT KIDNEY STONE Narrative: Patient presents for preadmission testing. Please see HPI from Dr. Iglesias dated September 03, 2024. Review of Systems ROS Narrative Please see ROS from Dr. Iglesias dated September 03, 2024. Please note patient does admit to chronic intermittent dyspnea on exertion. [facility] Medical History (Updated 09/06/24 @ 12:53 by Christiana Kenyon NP) Thyroid nodule ?E04.1 - Nontoxic single thyroid nodule (ICD-10) Cleft palate and cleft lip ?Q37.9 - Unspecified cleft palate with unilateral cleft lip (ICD-10) Uses hearing aid ?Z97.4 - Presence of external hearing-aid (ICD-10) S/P extracorporeal shock wave therapy (02/16/24) ?Z98.890 - Other specified postprocedural states (ICD-10) Undifferentiated connective tissue disease ?M35.9 - Systemic involvement of connective tissue, unspecified (ICD-10) H/O coronary angiogram ?Z98.890 - Other specified postprocedural states (ICD-10) Spondylolisthesis ?M43.10 - Spondylolisthesis, site unspecified (ICD-10) Osteoarthritis ?M19.90 - Unspecified osteoarthritis, unspecified site (ICD-10) Hiatal hernia ?K44.9 - Diaphragmatic hernia without obstruction or gangrene (ICD-10) History of esophageal dilatation ?Z98.890 - Other specified postprocedural states (ICD-10) Elevated partial thromboplastin time (PTT) ?R79.1 - Abnormal coagulation profile (ICD-10) History of perforated ear drum ?Z86.69 - Personal history of other diseases of the nervous system and sense organs (ICD-10) Hypertension ?I10 - Essential (primary) hypertension (ICD-10) Lumbar stenosis ?M48.061 - Spinal stenosis, lumbar region without neurogenic claudication (ICD-10) DDD (degenerative disc disease) Skin cancer ?C44.90 - Unspecified malignant neoplasm of skin, unspecified (ICD-10) Ureteral stone with hydronephrosis ?N13.2 - Hydronephrosis with renal and ureteral calculous obstruction (ICD- 10) Hematuria ?R31.9 - Hematuria, unspecified (ICD-10) Cleft palate ?Q35.9 - Cleft palate, unspecified (ICD-10) Eye cancer ?C69.90 - Malignant neoplasm of unspecified site of unspecified eye (ICD-10) Osteoporosis ?M81.0 - Age-related osteoporosis without current pathological fracture (ICD- 10) Lupus ?M32.9 - Systemic lupus erythematosus, unspecified (ICD-10) Rheumatoid arthritis ?M06.9 - Rheumatoid arthritis, unspecified (ICD-10) Hyperlipidemia ?E78.5 - Hyperlipidemia, unspecified (ICD-10) Kidney stone ?N20.0 - Calculus of kidney (ICD-10) Surgical History (Updated 09/06/24 @ 12:43 by Christiana Kenyon NP) History of repair of congenital cleft palate ?Z87.730 - Personal history of (corrected) cleft lip and palate (ICD-10) H/O eye surgery ?Z98.890 - Other specified postprocedural states (ICD-10) History of lumbar laminectomy ?Z98.890 - Other specified postprocedural states (ICD-10) H/O shoulder surgery ?Z98.890 - Other specified postprocedural states (ICD-10) History of tympanoplasty ?Z98.890 - Other specified postprocedural states (ICD-10) H/O Spinal surgery ?Z98.890 - Other specified postprocedural states (ICD-10) H/O esophagogastroduodenoscopy ?Z98.890 - Other specified postprocedural states (ICD-10) Hx of colonoscopy ?Z98.890 - Other specified postprocedural states (ICD-10) History of carpal tunnel release ?Z98.890 - Other specified postprocedural states (ICD-10) H/O arthroscopy of knee ?Z98.890 - Other specified postprocedural states (ICD-10) Hx of total knee arthroplasty ?Z96.659 - Presence of unspecified artificial knee joint (ICD-10) Family History (Updated 02/02/24 @ 08:19 by Stephanie Thakur RN) Other Family history of diabetes mellitus Family history of hypertension Family history of myocardial infarction Kidney stone Social History (Updated 02/02/24 @ 08:18 by Stephanie Thakur RN) Within the past year, how often did you have a drink containing alcohol: never Score interpretation: A score less than 4 is consistent with normal alcohol consumption. 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 Highest level of school completed/degree received: high school graduate Meds Home Medications and Allergies Home Medications ?Medication ?Instructions ?Recorded ?Confirmed ?Type aspirin 81 mg capsule 81 mg PO DAILY 02/01/24 09/06/24 History fexofenadine-pseudoephedrine ER 1 tab PO Q24H PRN allergy symptoms 02/01/24 09/06/24 History 180 mg-240 mg tablet,ext.release 24 hr (Seema-D 24 Hour) folic acid 1 mg tablet 1 mg PO DAILY 02/01/24 09/06/24 History hydroxychloroquine 200 mg tablet 200 mg PO BID 02/01/24 09/06/24 History leflunomide 10 mg tablet 10 mg PO DAILY 02/01/24 09/06/24 History lisinopril 20 1 tab PO DAILY 02/01/24 09/06/24 History mg-hydrochlorothiazide 12.5 mg tablet methotrexate sodium 25 mg/mL 25 mg IM .weekly 02/01/24 09/06/24 History injection solution montelukast 10 mg tablet 10 mg PO DAILY 02/01/24 09/06/24 History omeprazole 40 mg capsule,delayed 40 mg PO DAILY 02/01/24 09/06/24 History release potassium bicarbonate-citric acid 25 meq PO BID 02/01/24 09/06/24 History 25 mEq effervescent tablet (Klor-Con/EF) prednisolone acetate 1 % eye 1 drp ophthalmic (eye) Q6H 02/01/24 09/06/24 History drops,suspension simvastatin 20 mg tablet 20 mg PO DAILY 02/01/24 09/06/24 History tamsulosin 0.4 mg capsule 0.4 mg PO BID 02/01/24 09/06/24 History tramadol 50 mg tablet 50 mg PO BID PRN pain 02/01/24 09/06/24 History carboxymethylcellulose sodium 1 % 2 drp ophthalmic (eye) DAILY PRN 02/02/24 09/06/24 History eye liquid gel drops (Refresh dry eye(s) Liquigel) leucovorin calcium 5 mg tablet 5 mg PO .weekly 02/02/24 09/06/24 History methylprednisolone 4 mg tablets in 4 mg PO DAILY PRN flare 02/02/24 09/06/24 History a dose pack (Medrol (Nicolas)) acetaminophen 500 mg capsule 1,000 mg PO TID PRN pain 09/06/24 09/06/24 History meloxicam 15 mg tablet 15 mg PO DAILY 09/06/24 09/06/24 History Allergies Allergy/AdvReac Type Severity Reaction Status Date / Time oxycodone Allergy Severe Hallucinati Verified 09/06/24 12:47 ng cephalexin Allergy Unknown Unknown Verified 09/06/24 12:47 Sulfa (Sulfonamide Allergy Unknown Unknown Verified 09/06/24 12:47 Antibiotics) Exam Narrative Exam Narrative: Constitutional: Awake, alert, comfortable, well-appearing, nontoxic, interactive, vital signs as charted Head: Normocephalic, atraumatic Neck: Supple, normal appearance, normal range of motion, no meningeal signs, no lymphadenopathy Respiratory: No respiratory distress, breath sounds clear Cardiovascular: Regular rate and rhythm, strong and regular heart tones Abdomen: Nontender, normal bowel sounds, soft, no CVA tenderness Musculoskeletal: Normal gait, no swelling or edema Skin: No rashes or induration, no lesions, only visible skin inspected Neuro: No neurological deficits, normal sensation Psychiatric: Oriented ?3, normal affect Assessment and Plan Assessment and Plan (1) Kidney stone: Plan Right ESWL scheduled with Dr. Iglesias September 20, 2024.
[2024-09-06 13:34] LABS: Basophils Percent Auto 0.2 % (0.2-2.0); Hematocrit 45.9 % (42.0-54.0); Hemoglobin 15.8 g/dL (14.0-18.0); Immature Granulocytes Abs Auto 0.05 10^3/uL (0.00-0.03); Immature Granulocytes Pct Auto 0.4 % (0.0-0.5); Lymphocytes Absolute Auto 0.6 10^3/uL (1.2-3.8); Lymphocytes Percent Auto 5.1 % (20.5-60.0); Mean Corpuscular HGB Conc 34.4 g/dL (29.9-35.2); Mean Corpuscular Hemoglobin 31.2 pg (25.9-34.0); Mean Corpuscular Volume 90.5 fL (80.0-94.0); Mean Platelet Volume 10.2 fL (9.5-13.5); Monocytes Absolute Auto 0.4 10^3/uL (0.3-0.8); Monocytes Percent Auto 3.5 % (1.7-12.0); Neutrophils Absolute Auto 11.2 10^3/uL (1.4-6.5); Neutrophils Percent Auto 90.8 % (43.0-75.0); Platelet Count 199 10^3/uL (150-450); Red Blood Count 5.07 10^6/uL (4.70-6.10); Red Cell Distribution Width 14.2 % (11.0-15.0); White Blood Count 12.3 10^3/uL (4.0-11.0)
[2024-09-06 13:56] LABS: Anion Gap 17.3; BUN Creatinine Ratio 23.1; Calcium 9.3 mg/dL (8.5-10.1); Carbon Dioxide 20.7 mmol/L (21.0-32.0); Chloride 105 mmol/L (98-107); Estimated GFR (African America >60 (>=60 mL/min/1.73m^2); Estimated GFR (Non-African Ame >60 (>=60 mL/min/1.73m^2); Glucose 184 mg/dL (74-106); Sodium 139 mmol/L (136-145)
[2024-09-06 13:59] LABS: INR 1.01; Partial Thromboplastin Time 29.4 sec (22.3-36.2); Prothrombin Time 10.7 sec (9.0-11.6)
== END 2024-09-06 12:09 | disposition home or self-care (01) ==
LOC: PST 12:09
PROVIDERS: PCP Family Medicine; Visit Provider Urology
DX: Z01.810 Encounter for preprocedural cardiovascular examination (principal); Z01.812 Encounter for preprocedural laboratory examination; Z01.818 Encounter for other preprocedural examination; N20.0 Calculus of kidney
CPT/HCPCS: 80048; 85025; 85610; 85730; 93005; G0463

== ENCOUNTER 2024-10-17 10:49 | Outpatient (OUT) | payer MEDICARE, SELFPAY ==
[2024-10-17 11:47] LABS: Basophils Percent Auto 0.7 % (0.2-2.0); Eosinophils Absolute Auto 0.1 10^3/uL (0.0-0.7); Eosinophils Percent Auto 1.4 % (0.9-7.0); Hematocrit 46.6 % (42.0-54.0); Hemoglobin 15.8 g/dL (14.0-18.0); Immature Granulocytes Abs Auto 0.03 10^3/uL (0.00-0.03); Immature Granulocytes Pct Auto 0.5 % (0.0-0.5); Lymphocytes Absolute Auto 1.1 10^3/uL (1.2-3.8); Lymphocytes Percent Auto 18.8 % (20.5-60.0); Mean Corpuscular HGB Conc 33.9 g/dL (29.9-35.2); Mean Corpuscular Hemoglobin 30.8 pg (25.9-34.0); Mean Corpuscular Volume 90.8 fL (80.0-94.0); Mean Platelet Volume 10.2 fL (9.5-13.5); Monocytes Absolute Auto 0.6 10^3/uL (0.3-0.8); Monocytes Percent Auto 11.4 % (1.7-12.0); Neutrophils Absolute Auto 3.8 10^3/uL (1.4-6.5); Neutrophils Percent Auto 67.2 % (43.0-75.0); Platelet Count 187 10^3/uL (150-450); Red Blood Count 5.13 10^6/uL (4.70-6.10); Red Cell Distribution Width 13.7 % (11.0-15.0); White Blood Count 5.6 10^3/uL (4.0-11.0)
[2024-10-17 12:14] LABS: INR 1.03; Partial Thromboplastin Time 28.8 sec (22.3-36.2); Prothrombin Time 10.9 sec (9.0-11.6)
[2024-10-17 12:32] LABS: Anion Gap 15.6; BUN Creatinine Ratio 18.9; Calcium 9.3 mg/dL (8.5-10.1); Carbon Dioxide 22.5 mmol/L (21.0-32.0); Chloride 106 mmol/L (98-107); Estimated GFR (African America >60 (>=60 mL/min/1.73m^2); Estimated GFR (Non-African Ame 59 (>=60 mL/min/1.73m^2); Glucose 84 mg/dL (74-106); Potassium 4.1 mmol/L (3.5-5.1); Sodium 140 mmol/L (136-145)
== END 2024-10-17 10:50 | disposition home or self-care (01) ==
LOC: PST 10:50
PROVIDERS: PCP Family Medicine; Visit Provider Urology
DX: Z01.812 Encounter for preprocedural laboratory examination (principal); N20.0 Calculus of kidney
CPT/HCPCS: 80048; 85025; 85610; 85730

== ENCOUNTER 2024-10-25 06:12 | Day surgery (SDC) | payer MEDICARE, SELFPAY ==
[2024-09-06 13:05] VITALS: BP 154/78; PULSE 78; TEMP 36.3; O2SAT 96; BMI 33.7
[2024-10-17 11:34] VITALS: BP 135/84; PULSE 95; TEMP 36.6; O2SAT 96; BMI 33.1
[2024-10-25] VITALS (11 sets, daily range): BP systolic 103–135; BP diastolic 73–87; PULSE 39–78; TEMP 36.2–36.3; O2SAT 93–98; BMI 32.4
--- OUTSIDE RECORDS SUMMARY | 2024-10-25 06:17 | XMS_ITS | CCD ---
Author Organization [facility] Care Team Providers Care Machine Assembler Name Role Phone REBEKAH REED Unavailable Unavailable REBEKAH REED Unavailable Unavailable DO Sascha Sutton Primary Care Provider [phone] MD Adam Davis Attending Provider [phone] DO Sascha Sutton Primary Care Provider WILLOW Sanchez Attending Provider KARIN Ibrahim Attending Provider [phone] DO Sascha Sutton Primary Care Provider WILLOW Sanchez Attending Provider DO Sascha Sutton Primary Care Provider [phone] WILLOW Sanchez Attending Provider PAY ., DR FERNANDEZ Admitting Unavailable BALJINDER, DR PRIMO De Oliveira Consulting Unavailable HERMAN, DR SASCHA Candelaria Primary Care Unavailable PAY ., DR FERNANDEZ Attending Unavailable MAGDY ., MATT DONOHUE Consulting Unavailabl SHAIKH Claritza Menendez Attending Unavailable [...] ilable Herman, Dr. Sascha Espinoza Primary Care Nikkiva ildonaldo Trujillo, Dr. Alfonso Parham Attending Jennie Trujillo, Dr. Alfonso Parham Referring Unava miguel Sutton, Dr. Sascha Espinoza Primary Care Unava ilable Aquilesng, DO Sascha Primary Care Provider Aquilesng, DO Sascha Attending Provider MD Edenilson Reinoso Jr Emergency Provider DO Romel Orta Emergency Provider Unava MD Zac Aguirre Attending Provider FILI Sanchez-C Christine Gaviria Attending Provider MD Zac Muniz Referring Provider SASCHA SUTTON Primary Care Physician Furlong, DO Sascha Primary Care Provider MD Zac Muniz Attending Provider Furlong, DO Sascha Primary Care Provider MD Zac Muniz Attending Provider Furlong, DO Sascha Primary Care Provider MD Romel Davis Attending Provider [phone] Aquilesng, DO Sascha Primary Care Provider MD Zac Muniz Attending Provider MD Romel Davis Attending Provider [phone] Aquilesng, DO Sascha Primary Care Provider MD Romel Davis Attending Provider MD Zac Muniz Attending Provider Sascha Sutton DO Primary Care Provider [phone] Cynthialong, DO Sascha Primary Care Provider MD Romel Davis Attending Provider Herman, DO Sascha Attending Provider [phone] SASCHA SUTTON Referring Unavailable FURLONG, SASCHA G Primary Care Unavailable Unavailable Primary Care Provider Unavailjonathan e FurSascha norton MD Primary Care Provider WILLOW Hernandez Attending Provider Мария Hernandez Unavailable MD Edenilson Reinoso Jr Emergency Provider Furlong, DO Sascha Primary Care Provider [phone] MD Romel Davis Attending Provider [phone] Furlong, DO Sascha Attending Provider WILLOW Hernandez [...] Provider MD Mckenzie Khalil Attending Provider MD Romel Davis Attending Provider [phone] Furlong, DO Sascha Primary Care Provider WILLOW Hernandez Attending Provider Furlong, DO Sascha Primary Care Provider Furlong, DO Sascha Primary Care Provider DO Carlos Eden Attending Provider Furlong, DO Sascha Primary Care Provider MD Mckenzie Khalil Attending Provider Furlong, DO Sascha Primary Care Provider Furlong, DO Sascha Primary Care Provider MD Mckenzie Khalil Attending Provider [phone] MD Edenilson Mcleod Primary Care Provider MD Romel Davis Attending Provider MD Jaime Murcia II Attending Provider MUNIZ, Zac R Attending Unavailable LEAH ROA Attending Unavailable MUNIZ, Zac R Attending Unavailable MUNIZ, Zac R Admitting Unavailable MUNIZ, Zac R Attending Unavailable MUNIZ, Zac R Attending Unavailable MUNIZ, Zac R Attending Unavailable MUNIZ, Zac R Attending Unavailable Daria Jimenez Attending Unavailable Raymundo, FINISHING RANGE OPERATOR Myiram Chapa Attending Provider Edenilson Mcleod MD Primary Care Provider [phone] Jaime Murcia MD Attending Provider [phone] Raymundo FINISHING RANGE OPERATOR, Myriam Chapa Attending Provider Furlong DO, Sascha Primary Care Provider Romel Davis MD Attending Provider FURLONG, SASCHA G Referring Unavailable [...] Unavailable FURLONG, SASCHA G Primary Care Unavailable Mckenzie Khalil MD Unavailable Carlos Eden DO Unavailable [phone] ZAIRA CAIN Attending Unavailable MURCEKCARLOS Attending Unavailable MURCECARLOS Krishnamurthy Attending Unavailable MURCECARLOS Krishnamurthy Attending Unavailable MCKENZIE KHALIL Referring Unavailable KALI CONKLIN Attending Unavailable WHIT TAYLOR Attending Unavailable Muniz, Zac Admitting Unavailable Muniz, Zac Attending Unavailable Furlong, Sascha Primary Care Unavailable Furlong, Sascha Primary Care Unavailable Mckenzie Khalil Admitting Unavailable Mckenzie Khalil Attending Unavailable Romel Davis Attending Unavailable Romel Davis Admitting Unavailable Furlong, Sascha Primary Care Unavailable Furlong, Sascha Primary Care Unavailable Khalil, Mckenzie E Admitting Unavailable Khalil, Mckenzie E Attending Unavailable Khalil, Mckenzie E Admitting Unavailable Khalil, Mckenzie E Attending Unavailable Furlong, Sascha Primary Care Unavailable Edenilson Reinoso Jr Admitting Unavailable Edenilson Reinoso Jr Attending Unavailable Furlong, Sascha Primary Care Unavailable Murcek, Carlos Admitting Unavailable Murcek, Carlos Attending Unavailable Davis, Romel Admitting Unavailable Davis, Romel Attending Unavailable Edenilson Mcleod Primary Care Unavailable Twin II, Jaime Chapa Admitting Unavailabl e Cardinal II, Jaime M Attending Unavailabl e Edenilson Mcleod Primary Care Unavailable Raymundo, Myriam M Admitting Unavailable Raymundo, Myriam M Attending Unavailable Harsha, Edenilson Primary Care Unavailable Davis, Romel Admitting Unavailable [...] Hernandez Admitting Unavailable Мария Hernandez Attending Unavailable Allergies Allergy Classification Reported Allergen(s) Allergy Type Date of Onset Reaction(s) Facility Calcium Carbonate (4 sources) Calcium Carbonate Drug Allergy 04-09-20 Nausea [facility] Cephalosporins (antibiotic) (8 sources) Cephalexin Drug Allergy 04-09-20 Unknown Reaction [facility] Magnesium (4 sources) Magnesium Drug Allergy 04-09-20 Nausea [facility] Opioid Agonists (4 sources) oxyCODONE Drug Allergy 04-09-20 Hallucinating [facility] Sulfonamides (antibiotic) (4 sources) Sulfonamides (Antibiotic) Drug Allergy 04-09-20 Rash [facility] (20 sources) cephalexin; Translations: [CEPHALEXIN] Drug Allergy 04-25-20 Unknown (qualifier value) [facility] Repository (20 sources) oxyCODONE; Translations: [OXYCODONE] Drug Allergy 04-25-20 Hallucinations (finding), Hallucinations [facility] Repository (20 sources) Sulfonamides (Antibiotic); Translations: [SULFA (SULFONAMIDE ANTIBIOTICS)] Propensity to adverse reactions to drug (disorder) 05-20-20 14 Other (See Comments) [facility] Repository (2 sources) ASPIRIN, BUFFERED; Translations: [ASPIRIN, BUFFERED] Propensity to adverse reactions to drug (disorder) 04-25-20 18 AOF [facility] Repository (20 sources) Calcium Carbonate; Translations: [CALCIUM CARBONATE] Drug Allergy 07-19-20 19 GI intolerance, Nausea [facility] Comment on above: Is able to take aspi rin (20 sources) Cephalosporins (Antibiotic); Translations: [Cephalosporins] Allergy to substance 05-20-20 14 Other (See Comments), Unknown [facility] (20 sources) Magnesium; Translations: [MAGNESIUM] Drug Allergy 07-19-20 19 GI intolerance, GI Disturbance, Nausea [facility] Comment on above: Is able to take aspi rin (1 source) Sulfonamides (Antibiotic) Drug allergy (disorder) [facility] Repository (4 sources) Sulfamethoxazole; Translations: [sulfa] Drug Allergy Unknown [place] [address] DO Work Phone: (9 sources) Sulfonamides (Antibiotic); Translations: [sulfa drugs] Drug allergy Unknown (qualifier value) [facility] (8 sources) Aspirin,Buffd-Willow cium Carb-Mag; Translations: [ASPIRIN,BUFFD-CA LCIUM CARB-MAG] Propensity to adverse reactions to drug 09-29-20 22 Vomiting [facility] (4 sources) Aspirin Drug Allergy 10-13-[address] [facility] (4 sources) Sulfonamides (Antibiotic) Drug Allergy 05-20-[address] [facility] (1 source) Aspirin Drug Allergy Unknown [facility] Other (1 source) Sulfacetamide in [place] Drug allergy Unknown [facility] Other Medications Current Medications Medication Drug Class(es) Dates Sig (Normalized) Sig (Original) acetaminophen 500 mg oral tablet (20 sources) Start: 05-09-2023 acetaminophen (Tylenol) 500 MG tablet Take by mouth 05/09/2023 Active Start: 05-09-2023 take 2 tablets by mo uth three times daily as needed for pain acetaminophen (TYLENOL EXTRA STRENGTH) 500 mg tablet Take 2 tablets (1,000 mg total) by mouth 3 (three) times a day as needed for pain. 05/09/2023 Active Start: 03-31-2023 Acetaminophen 500 mg Tablet Active 1000 MG PO 2-3 TIMES PER DAY as needed for Pain March 30, 2023 11:00pm Start: 03-31-2023 Acetaminophen Active 1000 MG PO 2-3 TIMES PER DAY March 31, 2023 12:00am Start: 03-31-2023 take 1000 mg by mout h once daily Acetaminophen Active 1000 MG PO Daily March 31, 2023 12:00am Start: 11-05-2018 End: 07-24-2019 take 1 capsule by mouth three times daily Acetaminophen 500 mg Capsule Discontinued 500 MG PO Three times daily November 05, 2018 12:00am July 24, 2019 2:26pm take 1 tablet by christopher th every [...] 1 tablet by mouth every six hours as needed for pain Hydrocodone-Acetaminophen 5-325 mg tablet Active 1 - 2 TAB PO Every 6 hours as needed for pain 30 7 April 10, 2024 Start: 05-03-2023 End: 03-29-2024 take 1 tablet by mouth every six hours as needed for pain Hydrocodone-Acetaminophen 5-325 mg table t Discontinued 1 - 2 TAB PO Q6H as needed for pain 15 3 January 03, 2024 March 29, 2024 10:09am Start: 05-12-2019 End: 07-19-2019 take 1 tablet by mouth once daily at bedtime as needed for pain Hydrocodone-Acetaminophen ([place]) 5-325 mg tablet Discontinued 1 TAB PO Daily at bedtime as needed for pain 14 14 May 12, 2019 July 19, 2019 9:35am Start: 04-25-2018 End: 11-05-2018 take 1 tablet by mouth every four to six hours as needed for pain Hydrocodone-Acetaminophen ([place]) 5-325 mg tablet Discontinued 1 - 2 TAB PO EVERY 4-6 HOURS as needed for Pain May 16, 2018 November 05, 2018 12:25pm amoxicillin 875 mg oral tablet (1 source) Penicillin-class Antibacterial Start: 10-09-2024 End: 10-19-2024 take 1 tablet by mouth in the morning, then take 1 tablet by mouth at bedtime amoxicillin (AMOXIL) 875 mg tablet Take 1 tablet (875 mg total) by mouth in the morning and 1 tablet (875 mg total) before bedtime. Do all this for 10 days. 20 tablet 10/09/2024 10/19/2024 Active aspirin 81 mg delayed release oral tablet (20 sources) Platelet Aggregation Inhibitor, Nonsteroidal Anti-inflammatory Drug Start: 04-02-2024 Aspirin (Adult Low Dose Aspirin) 81 mg tablet,delayed release (DR/EC) Active 81 MG PO Daily April 01, 2024 11:00pm Start: 09-19-2023 take 1 mg by mouth e very twenty-four hours aspirin 81 mg oral capsule mg cap(s), Oral, q24hr, Refills(s) 0 Start Date: 09/19/23 Status: Ordered Start: 05-09-2023 take 1 mg by mouth e very four hours aspirin 325 mg oral capsule mg cap(s), Oral, q4hr, Refills(s) 0 Start Date: 05/09/23 Status: Ordered Start: 07-19-2019 End: 04-04-2023 take 1 tablet by mouth once daily in the morning Aspirin 325 mg Tablet Discontinued 325 MG PO Every morning July 18, 2019 11:00pm April 04, 2023 12:11pm Start: 11-05-2018 End: 11-05-2018 take 1 tablet by mouth once daily Aspirin (Aspir-81) 8 1 mg Tablet,Delayed Release (Dr/Ec) Discontinued 325 MG PO Daily November 05, 2018 12:00am November 05, 2018 12:25pm azithromycin 250 mg oral tablet (1 source) Macrolide Antimicrobial Start: 10-02-2024 End: 10-07-2024 azithromycin (ZITHROMAX) 250 mg tablet Take 2 tablets the first day, then 1 tablet daily for 4 days. 6 tablet 10/02/2024 10/07/2024 Active B Complex Vitamins (vitamin B complex) tablet (1 source) B Complex Vitami ns (vitamin B complex) tablet as directed Orally 0 Active benzonatate 200 mg oral capsule (5 sources) Non-narcotic Antitussive Start: 09-19-2024 benzonatate (Tessalon) 200 MG capsule Three times daily as needed for cough 09/19/2024 Active biotin 10 mg oral capsule (2 sources) Start: 10-15-2024 End: 11-14-2024 take 1 capsule by mouth in the morning biotin 10 MG capsule Indications: Intention tremor Take 1 capsule (10 mg) by mouth in the morning and 1 capsule (10 mg) before bedtime. 60 capsule 10/15/2024 11/14/2024 Active budesonide 0.032 mg/actuat metered dose nasal spray (9 sources) Corticosteroid budesonide (Rhinocort AQ) 32 MCG/ACT nasal spray 62,500 sprays Active budesonide (GUSTAVO KEYLA AQUA) 32 mcg/actuation nasal spray 62,500 sprays. Active carboxymethylcellulose 0.01 mg/mg ophthalmic gel (20 sources) Start: 03-31-2023 apply 1 drop(s) into the eye(s) once daily as needed Carboxymethylcellulose Sodium (Refresh Liquigel) 1 % Drops, Liquid Gel Active 1 DROPS EYE-BOTH Daily as needed for dry eye(s) March 30, 2023 11:00pm Carboxymethylcellulose Sodium (Refresh Liquigel) 1 % Drops, Liquid Gel (7 sources) Start: 03-31-2023 apply 1 drop(s) into the eye(s) once daily Carboxymethylcellulose Sodium (Refresh Liquigel) 1 % Drops, Liquid Gel Active 1 DROPS EYE-BOTH Daily March 31, 2023 12:00am codeine phosphate 2 mg/ml / guaiFENesin 20 mg/ml oral solution (3 sources) Opioid Agonist Start: 09-24-2024 take 10 mL by mouth three times daily as needed for cough codeine-guaiFENesin (guaiFENesin AC) 10-100 mg/5 mL liquid Indications: Upper respiratory tract infection, unspecified type Take 10 mL by mouth 3 (three) times a day as needed for cough. 120 mL 09/24/2024 Active colchicine 0.6 mg oral tablet (20 sources) Start: 12-19-2023 colchicine 0.6 MG tablet 12/19/2023 Active Start: 09-30-2023 End: 09-24-2024 take 1 capsule by mouth in the morning colchicine (MITIGARE) 0.6 mg capsule Take 1 capsule (0.6 mg total) by mouth in the morning. 09/30/2023 09/24/2024 Discontinued (Therapy completed) Colchicine 0.6 M G 5 mL Orally Active fexofenadine (8 sources) Histamine-1 Receptor Antagonist Start: 05-09-2023 Seema D OTC 24HR Oral, Daily, Refill(s) 0 Start Date: 05/09/23 Status: Ordered fexofenadine / Pseudoephedrine (20 sources) alpha-Adrenergic Agonist, Histamine-1 Receptor Antagonist Start: 03-31-2023 take 1 tablet by mouth once daily as needed, then take 1 tablet by mouth every twenty-four hours as needed Fexofenadine-Ps eudoephedrine (Seema-D 24 Hour) 180-240 mg Tablet Extended Release 24 Hr Active 1 TAB PO Daily as needed for allergies March 30, 2023 11:00pm Start: 03-31-2023 take [...] TAB PO Daily March 31, 2023 12:00am 30 actuat fluticasone furoate 0.1 mg/actuat / umeclidinium 0.0625 mg/actuat / vilanterol 0.025 mg/actuat dry powder inhaler (2 sources) Anticholinergic, Corticosteroid, beta2-Adrenergic Agonist Start: 09-24-2024 End: 10-08-2024 take 1 puff(s) by inhalation once daily cvrxmqeuarx-knmylvqok-gqtzgosm (TRELEGY ELLIPTA) 100-62.5-25 mcg blister with device Inhale 1 puff once daily for 14 days. 1 each 09/24/2024 10/08/2024 Active folic acid 1 mg oral tablet (20 sources) Start: 05-09-2023 folic acid (Folvite) 1 MG tablet folic acid 1 mg tablet 05/09/2023 Active Start: 04-25-2018 take 1 tablet by christopher th twice daily Folic Acid 1 mg tablet Active 1 MG PO Twice daily April 24, 2018 11:00pm Start: 04-25-2018 take 1-2 mg by mouth once baldomero y Folic Acid Active 1 - 2 MG PO Daily April 25, 2018 12:00am 12 hr guaiFENesin 600 mg / pseudoephedrine hydrochloride 60 mg extended release oral tablet (8 sources) alpha-Adrenergic Agonist take 1 tablet by mouth every twelve hours pseudoephedrine-guaiFENesin ER (Mucinex D) 60-600 MG 12 hr tablet Take 1 tablet by mouth every 12 (twelve) hours Active pseudoephedrine- guaiFENesin (MUCINEX D) 60-600 mg per 12 hr tablet Active hydroCHLOROthiazide 12.5 mg / lisinopril 20 mg oral tablet (20 sources) Thiazide Diuretic, Angiotensin Converting Enzyme Inhibitor Start: 09-19-2023 take 1 tablet by mouth in the morning lisinopril-hydroCHLOROthiazide 20-12.5 MG tablet Take 1 tablet by mouth in the morning. 08/29/2024 Active Start: 05-12-2019 End: 08-29-2024 take 1 tablet by mouth once daily in the morning Lisinopril-Hydrochlorothiazide 20-12.5 m g Tablet Active 1 TAB PO Every morning May 11, 2019 11:00pm hydroxychloroquine sulfate 200 mg oral tablet (20 sources) Antimalarial, Antirheumatic Agent Start: 05-09-2023 take 1 mg by mouth once daily hydroxychloroquine 200 mg Tab mg tab(s), Oral, Daily, Refills(s) 0 Start Date: 05/09/23 Status: Ordered Start: 04-25-2018 take 1 tablet by christopher th twice daily hydroxychloroquine (Plaquenil) 200 MG tablet hydroxychloroquine 200 mg tablet TAKE 1 TABLET BY MOUTH TWICE A DAY 05/09/2023 Active leflunomide 10 mg oral tablet (20 sources) Antirheumatic Agent Start: 04-25-2018 leflunomid e (Arava) 10 MG tablet 07/23/2024 Active leucovorin 5 mg oral tablet (20 sources) Folate Analog Start: 04-25-2018 take 1 tablet by mouth every week Leucovorin Calcium 5 mg tablet Active 5 MG PO every week April 24, 2018 11:00pm taken on sundays lisinopril 20 mg oral tablet (20 sources) Angiotensin Converting Enzyme Inhibitor Start: 05-09-2023 take 1 mg by mouth once daily lisinopril 20 mg Tab mg tab(s), Oral, Daily, Refills(s) 0 Start Date: 05/09/23 Status: Ordered Start: 04-25-2018 End: 05-12-2019 take 1 tablet by mouth once daily Lisinopril 20 mg tablet Discontinued 20 MG PO Daily April 24, 2018 11:00pm May 12, 2019 1:29am loratadine 10 mg oral tablet (5 sources) Start: 03-28-2023 take 1 tablet by mouth in the morning loratadine (CLARITIN) 10 mg tablet Indications: Allergic rhinitis Take 1 tablet (10 mg total) by mouth in the morning. 30 tablet 03/28/2023 Active meloxicam 15 mg oral tablet (12 sources) Nonsteroidal Anti-inflammatory Drug Start: 08-29-2024 meloxicam 7.5 mg/5 mL suspension daily 08/29/2024 Active Start: 08-29-2024 meloxicam (Mob ic) 15 MG tablet 08/29/2024 Active 2 ml methotrexate 25 mg/ml injection (20 sources) Folate Analog Metabolic Inhibitor Start: 10-08-2024 Methotrexate Sodium (methotrexate PF) 50 MG/2ML syringe 10/08/2024 Active Start: 05-09-2023 inject 1 mg intravenously once methotrexate 1 g injection mg/m2, IV, Once, Refills(s) 0 Start Date: 05/09/23 Status: Ordered Start: 05-09-2023 inject 1 mg intravenously once methotrexate 1 g injection mg/m2, IV, Once, Refills(s) 0 Start Date: 05/09/23 Status: Ordered Start: 11-05-2018 inject 25 mg by subc utaneous injection every week Methotrexate Sodium 25 mg/mL solution Active 25 MG SUBCUT every week November 05, 2018 12:00am taken on saturdays Start: 11-05-2018 inject 25 mg by subc utaneous injection every week Methotrexate Sodium Active 25 MG SUBCUT every week November 05, 2018 1:00am taken on saturdays methotrexate (Xa tmep) 2.5 MG/ML oral solution Take 2.5 mg by mouth Active methotrexate, PF , 25 mg/mL chemo syringe methotrexate sodium (PF) 25 mg/mL injection solution Active Methotrexate 2.5 MG 1 needle Orally once a week *please review for potential _update for e-prescription and drug interaction check* Active Methotrexate Sod ium 1 GM Injection Solution Reconstituted USE DIRECTED. Quantity: 0 Refills: 0 Ordered: 30-Mar-2023 DO Active montelukast 10 mg oral tablet (20 sources) Leukotriene Receptor Antagonist Start: 04-25-2018 take 1 tablet by mouth once daily in the evening Montelukast 10 mg tablet Active 10 MG PO Every evening April 24, 2018 11:00pm nabumetone 750 mg oral tablet (20 sources) Nonsteroidal Anti-inflammatory Drug Start: 05-09-2023 End: 09-24-2024 nabumetone (Relafen) 750 MG tablet Take 750 mg by mouth 06/09/2024 Active Start: 04-25-2018 take 1 tablet by christopher th twice daily Nabumetone 750 mg tablet Active 750 MG PO Twice daily April 24, 2018 11:00pm take 1 tablet by christopher th every twelve hours Nabumetone 750 MG Oral Tablet TAKE 1 TABLET EVERY 12 HOURS. Quantity: 0 Refills: 0 Ordered: 30-Mar-2023 DO Active nitroglycerin 0.4 mg sublingual tablet (20 sources) Nitrate Vasodilator Start: 03-31-2023 take 1 tablet under the tongue once daily as needed for pain Nitroglycerin 0.4 mg tablet, sublingual Active 0.4 MG SUBLINGUAL Daily as needed for Chest Pain March 30, 2023 11:00pm Start: 03-30-2023 Nitroglycerin 0.4 MG Sublingual Tablet Sublingual PLACE 1 TABLET UNDER THE TONGUE EVERY 5 MINUTES FOR UP TO 3 DOSES NEEDED FOR CHEST PAIN.CALL 911 IF PAIN PERSISTS. Quantity: 1 Refills: 0 Ordered: 30-Mar-2023 Alfonso Trujillo DO Start : 30-Mar-2023 Active new start omeprazole 40 mg delayed release oral capsule (20 sources) Proton Pump Inhibitor Start: 10-11-2024 omeprazo le (PriLOSEC) [address] capsule 10/11/2024 Active Start: 10-23-2022 omeprazole (Pr iLOSEC) 40 mg capsule 10/23/2022 Active Start: 04-25-2018 take 2 capsules by m outh once daily in the morning Omeprazole 20 mg capsule,delayed release(DR/EC) Active 40 MG PO Every morning April 24, 2018 11:00pm Start: 04-25-2018 take 40 mg by mouth [...] Bicarb-Citric Acid (Klor-Con/Ef) 25 mEq tablet, effervescent (20 sources) Start: 04-02-2024 Potassium Bica rb-Citric Acid (Klor-Con/Ef) 25 mEq tablet, effervescent Active 25 MEQ PO Twice daily April 01, 2024 11:00pm Start: 04-02-2024 Potassium Bica rb-Citric Acid (Klor-Con/Ef) 25 mEq tablet, effervescent Active 25 MEQ PO Twice daily April 02, 2024 12:00am potassium bicarbonate 25 meq effervescent oral tablet (9 sources) Start: 12-14-2023 take 1 tablet by [...] drop(s) into the eye(s) three times daily as needed Prednisolone Acetate (Pred Forte) 1 % drops,suspension Active 1 DROPS EYE-RIGHT Three times daily as needed for iritis April 01, 2024 11:00pm Start: 08-22-2023 prednisoLONE a cetate (Pred-Forte) 1 % ophthalmic suspension 08/22/2023 Active Start: 05-09-2023 prednisoLONE O ral, Daily, Refills(s) 0 Start Date: 05/09/23 Status: Ordered Start: 11-05-2018 End: 07-24-2019 Prednisolone Acetate 1 % drops,suspension Discontinued 1 DROPS OPHTHALMIC As Directed as needed for Iritis November 05, 2018 12:00am July 24, 2019 2:25pm taper as directed/ Right Eye Start: 11-05-2018 End: 07-24-2019 Prednisolone Acetate Discont [...] 0 Refills: 0 Ordered: 30-Mar-2023 DO Active predniSONE 20 mg oral tablet (3 sources) Start: 09-24-2024 End: 09-27-2024 predniSONE (Deltasone) 20 MG tablet 09/24/2024 Active Refresh Dry Eye Therapy (8 sources) Start: 05-09-2023 Refresh Dry Ey e Therapy Eye-Both, QID, Refill(s) 0 Start Date: 05/09/23 Status: Ordered simvastatin 20 mg oral tablet (20 sources) HMG-CoA Reductase Inhibitor Start: 07-19-2019 take 1 tablet by mouth once daily in the evening Simvastatin 20 mg Tablet Active 20 MG PO Every evening July 18, 2019 11:00pm Start: 04-25-2018 End: 07-19-2019 take 1 tablet by mouth once daily Simvastatin 10 mg tablet Discontinued 10 MG PO Daily April 24, 2018 11:00pm July 19, 2019 9:31am tamsulosin hydrochloride 0.4 mg oral capsule (20 sources) alpha-Adrenergic Sandy Start: 04-15-2024 take 1 capsule by mouth once daily tamsulosin (Flomax) 0.4 MG 24 hr capsule Take 0.4 mg by mouth Daily 04/15/2024 Active Start: 01-03-2024 End: 02-02-2024 take 1 capsule by mouth twice daily Flomax 0.4 mg Cap 0.4 mg = 1 cap(s), Oral, BID, X 30 day(s), # 60 cap(s), Refills(s) 0, Pharmacy: [facility]/pharmacy #[id number], 173, cm, 09/19/23 9:41:00 EDT, Height/Length Dosing, 97.5, kg, 09/19/23 9:41:00 EDT, Weight Dosing Start Date: 01/03/24 Stop Date: 02/02/24 Status: Ordered Start: 05-09-2023 End: 06-08-2023 take 1 capsule by mouth twice daily Flomax 0.4 mg Cap 0.4 mg = 1 cap(s), Oral, BID, X 30 day(s), # 60 cap(s), Refills(s) 0, Pharmacy: [facility] [id number], 173, cm, 05/09/23 16:02:00 EDT, Height/Length Dosing, 97.5, kg, 05/09/23 16:02:00 EDT, Weight Dosing Start Date: 05/09/23 Stop Date: 06/08/23 Status: Ordered Start: 05-03-2023 End: 04-02-2024 Tamsulosin (Flomax) 0.4 mg c apsule Discontinued 0.4 MG PO Daily January 03, 2024 3:25am April 02, 2024 1:36pm administer 30 minutes after same meal each day until stone passes Start: 04-25-2018 End: 11-05-2018 take 1 capsule by mouth once daily Tamsulosin (Flomax) 0.4 mg Capsule,Extended Release 24hr Discontinued 0.4 MG PO Daily April 24, 2018 11:00pm November 05, 2018 12:21pm traMADol hydrochloride 50 mg oral tablet (20 sources) Opioid Agonist Start: 05-09-2023 take 1 mg by mouth every six hours traMADOL 50 mg Tab mg tab(s), Oral, q6hr, Refills(s) 0 Start Date: 05/09/23 Status: Ordered Start: 11-05-2018 End: 07-26-2019 take 2 tablets by mouth every eight hours as needed for pain Tramadol 50 mg tablet Active 100 MG PO Q8H as needed for Pain 0 July 26, 2019 6:13am Start: 11-05-2018 End: 07-26-2019 take 100 mg [...] 03-31-2023 Triamcinolone Acetonide (Nasal Allergy) 55 mcg Aerosol,[place] Active 1 SPRAY INTRANASAL Daily March 30, 2023 11:00pm Start: 03-31-2018 Kenalog -40 mg March, 10 mg Completed/Discontinued Medications Medication Drug Class(es) Dates Sig (Normalized) Sig (Original) chlorhexidine gluconate 40 mg/ml medicated liquid soap (1 source) Hibiclens 4 % Externally Not-Taking/PRN ciprofloxacin 500 mg oral tablet (20 sources) Quinolone Antimicrobial Start: 4 End: 4 take 1 tablet by mouth every two hours Ciprofloxacin Hcl (Cipro) 500 mg tablet Discontinued 500 MG PO Q12H April 08, 2024 11:00pm May 02, 2024 8:53am administer dose at least 2 hrs before/6 hrs after dairy products, calcium, zinc, and/or iron-containing products cyclobenzaprine hydrochloride 10 mg oral tablet (20 sources) Muscle Relaxant Start: 9 End: 9 take 1 tablet by mouth three times daily as needed for pain Cyclobenzaprine 10 mg Tablet Discontinued 10 MG PO Three times daily as needed for Pain May 11, 2019 11:00pm July 26, 2019 7:09am diazePAM 5 mg oral tablet (20 sources) Benzodiazepine Start: 9 End: 3 take 1 tablet by mouth four times daily as needed for muscle spasms Diazepam 5 mg Tablet Discontinued 5 MG PO Four times daily as needed for Muscle Spasm 30 July 25, 2019 11:00pm March 31, 2023 7:41am doxycycline hyclate 100 mg oral tablet (20 sources) Tetracycline-class Drug Start: 8 End: 8 take 1 tablet by mouth twice daily Doxycycline Hyclate 100 mg tablet Discontinued 100 MG PO Twice daily 10 July 09, 2018 11:00pm November 05, 2018 12:17pm Effervescent Potassium 25 mEq oral tablet (6 sources) Start: 3 End: 4 take 1 tablet by mouth twice daily Effervescent Potassium 25 mEq oral tablet 25 mEq = 1 tab(s), Oral, BID, X 90 day(s), # 180 tab(s), Refills(s) 3, Pharmacy: [facility]/pharmacy #[id number], 173, cm, 09/19/23 9:41:00 EDT, Height/Length [...] spray(s) nasal route once daily Fluticasone Propionate 93 mcg/actuation Aerosol Breath Activated Discontinued 1 SPRAY INTRANASAL Daily July 18, 2019 11:00pm March 31, 2023 7:40am Left nostril only Hexachlorophene (1 source) Phisohex *please review for potential _update for e-prescription and drug interaction check* Not-Taking/PRN HYDROmorphone hydrochloride 4 mg oral tablet (20 sources) Opioid Agonist Start: 8 End: 8 take 1 tablet by mouth every six hours as needed for pain Hydromorphone (Dilaudid) 4 mg tablet Discontinued 4 MG PO Q6H as needed for pain April 29, 2018 November 05, 2018 12:25pm ketorolac tromethamine 10 mg oral tablet (7 sources) Nonsteroidal Anti-inflammatory Drug, Cyclooxygenase Inhibitor Start: 3 take 1 tablet by mouth twice daily as needed for pain ketorolac 10 mg Tab 10 mg = 1 tab(s), Oral, BID, PRN for pain, Take one tab by mouth up to twice daily for pain., # 30 tab(s), Refills(s) 0, Pharmacy: [facility] [id number], 173, cm, 05/09/23 16:02:00 EDT, Height/Length Dosing, 97.5, kg, 05/09/23 16:02:00 EDT, Weight Dosing Start Date: 05/09/23 Status: Ordered levoFLOXacin 500 mg oral tablet (20 sources) Quinolone Antimicrobial Start: 4 End: 4 take 1 tablet by mouth once daily Levofloxacin 500 mg tablet Discontinued 500 MG PO Daily 5 5 January 03, 2024 12:00am March 29, 2024 10:11am methylPREDNISolone 4 mg oral tablet (20 sources) Corticosteroid Start: 3 End: 4 Methylprednisolone (Medrol (Nicolas)) 4 mg tablets,dose pack Discontinued 4 MG PO As Directed as needed for arthritis flare April 01, 2024 11:00pm May 02, 2024 8:54am Start: 11-05-2018 End: 07-24-2019 take 1 tablet by mouth once as needed Methylprednisolone (Medrol (Nicolas)) 4 mg tablets,dose pack Discontinued 1 dose pk PO per package directions as needed for UCTD July 19, 2019 9:35am July 24, 2019 2:25pm Medrol (Nicolas) 4 M G TABS USE DIRECTED. Quantity: 0 Refills: 0 Ordered: 30-Mar-2023 DO Active ondansetron 4 mg disintegrating oral tablet (20 sources) Serotonin-3 Receptor Antagonist Start: 05-03-2023 End: 03-29-2024 take 1 tablet by mouth every eight hours as needed for nausea and vomiting Ondansetron 4 mg tablet,disintegrating Discontinued 4 MG PO Q8H as needed for nausea and vomiting January 03, 2024 3:25am March 29, 2024 10:10am Start: 04-25-2018 End: 11-05-2018 Ondansetron (Zofran Odt) 4 m g Tablet,Disintegrating Discontinued 4 MG PO EVERY 8-12 HOURS as needed for Nausea And Vomiting April 24, 2018 11:00pm November 05, 2018 12:20pm Vitamin B Complex (1 source) Vitamin B [...] (1 source) take 1 capsule by mo [facility] every twenty-four hours Vitamin E 400 UNIT 1 capsule Orally Once a day for 30 day(s) Not-Taking/PRN Problems Active Problems Problem Classification Problem Date Documented Date Episodic/Chronic Abdominal hernia (1 source) Hiatal hernia; Translations: [Diaphragmatic hernia without obstruction or gangrene] Episodic Acquired foot deformities (1 source) Pronation deformity of the foot; Translations: [Other acquired deformities of right foot] 12-28-2023 Episodic Cancer; other and unspecified primary (10 sources) Malignant neoplasm of eye; Translations: [Malignant neoplasm of unspecified site of unspecified eye] Onset: 05-28-2024 Resolved: 06-14-2024 01-19-2024 Chronic Coagulation and hemorrhagic disorders (13 sources) Lupus anticoagulant disorder; Translations: [Primary hypercoagulable state] Onset: 09-29-2022 12-14-2023 Chronic Coronary atherosclerosis and other heart disease (1 source) Atherosclerotic heart disease of [place] coronary artery without angina pectoris; Translations: [ASHD [place] W/O ANGINA PECTORIS] Onset: 03-28-2023 Chronic Diseases of white blood cells (20 sources) Leukocytosis; Translations: [Elevated white blood cell count, unspecified] Onset: 05-28-2024 01-03-2024 Chronic Disorders of lipid metabolism (19 sources) Hyperlipidemia, unspecified; Translations: [Hyperlipidemia] Onset: 03-28-2023 12-14-2023 Chronic Esophageal disorders (1 source) Diffuse spasm of esophagus; Translations: [Dyskinesia of esophagus] Chronic Esophageal disorders (1 source) Esophagitis; Translations: [Esophagitis, unspecified] Episodic Essential hypertension (18 sources) Essential (primary) hypertension; Translations: [Hypertensive disorder] Onset: 04-26-2017 12-14-2023 Chronic Genitourinary symptoms and ill-defined conditions (1 source) Incontinence without sensory awareness; Translations: [Incontinence without sensory awareness] Onset: 03-19-2024 Chronic Headache; including migraine (8 sources) Cluster headache; Translations: [Cluster headache syndrome, unspecified, not intractable] Onset: 09-29-2022 09-29-2022 Chronic Hyperplasia of prostate (13 sources) Benign prostatic hypertrophy without outflow obstruction; Translations: [Benign prostatic hyperplasia without lower urinary tract symptoms] Onset: 03-20-2024 Chronic Nonspecific chest pain (7 sources) Other chest pain; Translations: [Chest pain] Onset: 03-20-2023 Episodic Osteoarthritis (20 sources) Osteoarthritis of knee; Translations: [Osteoarthritis of knee, unspecified] Onset: 09-29-2022 09-29-2022 Chronic Osteoporosis (10 sources) Osteoporosis; Translations: [Age-related osteoporosis without current pathological fracture] Onset: 05-28-2024 01-19-2024 Chronic Other acquired deformities (20 sources) Spondylolisthesis, lumbar region; Translations: [Spondylolisthesis] 02-09-2024 Episodic Other aftercare (1 source) Other watermaster (current) drug therapy; Translations: [OTH SPECIAL DELIVERY CARRIER CURRENT DRUG THERAPY] Onset: 03-28-2023 Episodic Other aftercare (1 source) care home (current) use of aspirin; Translations: [USP CURRENT USE OF ASPIRIN] Onset: 03-28-2023 Episodic Other aftercare (1 source) High risk drug monitoring status; Translations: [care home (current) use of opiate analgesic] Episodic Other congenital anomalies (4 sources) Cleft palate; Translations: [Cleft palate, unspecified] Onset: 09-29-2022 09-29-2022 Chronic Other congenital anomalies (8 sources) Cleft palate with cleft lip; Translations: [Unspecified cleft palate with unilateral cleft lip] Onset: 09-29-2022 06-14-2024 Chronic Other diseases of kidney and ureters (1 source) Hydronephrosis with renal and ureteral calculous obstruction; Translations: [Hydronephrosis with renal and ureteral calculous obstruction] Onset: 04-25-2018 Episodic Other diseases of kidney and ureters (3 sources) Urinary tract obstruction; Translations: [Hydronephrosis with renal and ureteral calculous obstruction] Onset: 06-02-2023 Episodic Other ear and sense organ disorders (8 sources) Hearing loss; Translations: [Unspecified hearing loss, unspecified ear] Onset: 09-29-2022 09-29-2022 Chronic Other ear and sense organ disorders (8 sources) Decreased hearing ; Translations: [Unspecified hearing loss, bilateral] Onset: 05-28-2024 06-14-2024 Chronic Other hereditary and degenerative nervous system conditions (4 sources) Intention tremor; Translations: [Other specified forms of tremor] Onset: 10-15-2024 10-15-2024 Chronic Other inflammatory condition of skin (3 sources) Lupus erythematosus 01-19-2024 Chronic Other lower respiratory disease (1 source) Other forms of dyspnea; Translations: [OTHER FORMS OF DYSPNEA] Onset: 03-28-2023 Episodic Other lower respiratory disease (3 sources) Dyspnea on exertion; Translations: [Shortness of breath] Episodic Other lower respiratory disease (5 sources) Dyspnea; Translations: [Shortness of breath] Onset: 10-15-2024 09-19-2024 Episodic Other lower respiratory disease (9 sources) Cough; Translations: [Cough] Onset: 09-24-2024 09-19-2024 Episodic Other lower respiratory disease (4 sources) Shortness of breath; Translations: [Shortness of breath] Onset: 09-19-2024 09-19-2024 Episodic Other nervous system disorders (20 sources) Piriformis syndrome; Translations: [Lesion of sciatic nerve, unspecified lower limb] Onset: 05-28-2024 05-12-2019 Chronic Other nervous system disorders (20 sources) Lesion of ulnar nerve, right upper limb; Translations: [Lesion of ulnar nerve] Onset: 04-09-2024 12-14-2023 Chronic Other nervous system disorders (8 sources) Carpal tunnel syndrome; Translations: [Carpal tunnel syndrome, unspecified upper limb] Onset: 08-02-2018 09-29-2022 Chronic Other nervous system disorders (8 sources) Luo's metatarsalgia; Translations: [Lesion of plantar nerve, unspecified lower limb] Onset: 09-29-2022 09-29-2022 Chronic Other nervous system disorders (20 sources) Chronic pain; Translations: [Other chronic pain] Onset: 05-28-2024 04-11-2024 Chronic Other nervous system disorders (3 sources) Carpal tunnel syndrome of left wrist; Translations: [Carpal tunnel syndrome, left upper limb] Chronic Other nervous system disorders (1 source) Carpal tunnel syndrome of right wrist; Translations: [Carpal tunnel syndrome, right upper limb] Chronic Other nervous system disorders (20 sources) Compression neuropathy of upper limb; Translations: [Lesion of ulnar nerve, right upper limb] Onset: 05-28-2024 02-09-2024 Chronic Other nervous system disorders (20 sources) Other chronic pain; Translations: [Other chronic pain] 04-11-2024 Chronic Other nervous system disorders (1 source) Paresthesia; Translations: [Paresthesia of skin] 12-14-2023 Episodic Other nervous system disorders (11 sources) Finding of hand region; Translations: [Tremor, unspecified] Onset: 10-15-2024 07-12-2024 Episodic Other nervous system disorders (8 sources) Tremor, unspecified; Translations: [Abnormal involuntary movements] 07-12-2024 Episodic Other non-traumatic joint disorders (1 source) Pain in right knee; Translations: [Pain in joint, lower leg] 12-28-2023 Episodic Other non-traumatic joint disorders (8 sources) Hip pain; Translations: [Pain in right hip] Onset: 10-15-2024 08-27-2024 Episodic Other non-traumatic joint disorders (1 source) Pain in right hip; Translations: [Pain in right hip] Onset: 08-29-2024 Episodic Other nutritional; endocrine; and metabolic disorders (1 source) Obesity, unspecified; Translations: [OBESITY UNSPECIFIED] Onset: 03-28-2023 Chronic Other nutritional; endocrine; and metabolic disorders (2 sources) Body mass index (BMI) 33.0-33.9, adult; Translations: [BODY MASS INDEX BMI 33.0-33.9 ADULT] Onset: 03-28-2023 Chronic Other nutritional; endocrine; and metabolic disorders (3 sources) Obesity; Translations: [Obesity, unspecified] Chronic Other nutritional; endocrine; and metabolic disorders (9 sources) Obesity caused by energy imbalance; Translations: [Other obesity due to excess calories] Onset: 04-15-2023 12-14-2023 Chronic Other nutritional; endocrine; and metabolic disorders (1 source) Body mass index 30+ - obesity; Translations: [Body mass index (BMI) 31.0-31.9, adult] Chronic Other nutritional; endocrine; and metabolic disorders (1 source) Other obesity due to excess calories; Translations: [Other obesity due to excess calories] Onset: 12-14-2023 Chronic Other upper respiratory disease (8 sources) Allergic rhinitis; Translations: [Allergic rhinitis, unspecified] Onset: 07-28-2017 09-29-2022 Chronic Other upper respiratory disease (1 source) Hoarse; Translations: [Dysphonia] 10-09-2024 Episodic Other upper respiratory infections (2 sources) Upper respiratory infection; Translations: [Acute upper respiratory infection, unspecified] 09-24-2024 Episodic Residual codes; unclassified (1 source) Postprocedural state finding; Translations: [Other specified postprocedural states] Episodic Residual codes; unclassified (1 source) Other specified postprocedural states Episodic Rheumatoid arthritis and related disease (9 sources) Rheumatoid arthritis; Translations: [Rheumatoid arthritis] Onset: 05-28-2024 01-19-2024 Chronic Screening and history of mental health and substance abuse codes (4 sources) Personal history of nicotine dependence; Translations: [Ex-smoker] Onset: 03-28-2023 Episodic Comment on above: quit in the ; Spondylosis; intervertebral disc disorders; other back problems (20 sources) Degeneration of cervical intervertebral disc; Translations: [Other cervical disc degeneration, unspecified cervical region] Onset: 05-28-2024 01-19-2024 Chronic Systemic lupus erythematosus and connective tissue disorders (18 sources) Systemic lupus erythematosus, unspecified; Translations: [Autoimmune connective tissue disorder] Onset: 09-29-2022 12-14-2023 Chronic Thyroid disorders (1 source) Nontoxic single thyroid nodule; Translations: [Nontoxic single thyroid nodule] Onset: 05-30-2024 Chronic Unclassified (1 source) Unknown / UNK(Unknown) Onset: 04-25-2018 Unclassified (2 sources) Low back pain, unspecified; Translations: [Low back pain, unspecified] Onset: 12-14-2023 Unclassified (3 sources) Patient encounter status 03-20-2024 Unclassified (1 source) MAW Onset: 05-01-2024 Unclassified (1 source) Cough, unspecified; Translations: [Cough, unspecified] Onset: 09-19-2024 Unclassified (1 source) Spinal stenosis, lumbar region without neurogenic claudication; Translations: [Spinal stenosis, lumbar region without neurogenic claudication] Onset: 12-30-2023 Unclassified (1 source) Low back pain, unspecified; Translations: [Low back pain, unspecified] Onset: 12-15-2023 Unclassified (1 source) Sjogren syndrome, unspecified; Translations: [Sjogren syndrome, unspecified] Onset: 12-08-2023 Past or Other Problems Problem Classification Problem Date Documented Da te Episodic/Chronic Abdominal pain (1 source) Unspecified abdominal pain; Translations: [Unspecified abdominal pain] Onset: 4 Episodic Acute and unspecified renal failure (20 sources) Injury of kidney; Translations: [Acute kidney failure, unspecified] Onset: 4 05-03-2023 Episodic Calculus of urinary tract (20 sources) Calculus of ureter; Translations: [Calculus of ureter] Onset: 8 05-03-2023 Episodic Cancer; other and unspecified primary (5 sources) Squamous cell carcinoma of cornea; Translations: [Malignant neoplasm of unspecified cornea] Onset: 4 Resolved: 3 04-15-2023 Chronic E Codes: Fall (1 source) Fall from chair, initial encounter; Translations: [FALL FROM CHAIR INITIAL ENCOUNTER] Onset: 2 Episodic Genitourinary symptoms and ill-defined conditions (18 sources) Blood in urine; Translations: [Gross hematuria] Onset: 3 Episodic Inflammation; infection of eye (except that caused by tuberculosis or sexually transmitteddisease) (10 sources) Iritis; Translations: [Unspecified iridocyclitis] Onset: 4 01-19-2024 Episodic Mood disorders (5 sources) Mood disorders Onset: 4 Resolved: 4 12-14-2023 Neoplasms of unspecified nature or uncertain behavior (8 sources) Conjunctival intraepithelial neoplasia; Translations: [Neoplasm of unspecified behavior of other specified sites] Onset: 5 09-29-2022 Episodic Other acquired deformities (20 sources) Lumbar spondylolisthesis; Translations: [Spondylolisthesis, lumbar region] Onset: 4 07-25-2019 Episodic Other connective tissue disease (8 sources) Right rotator cuff syndrome; Translations: [Unspecified rotator cuff tear or rupture of right shoulder, not specified as traumatic] Onset: 9 09-29-2022 Episodic Other diseases of kidney and ureters (16 sources) Hydronephrosis; Translations: [Unspecified hydronephrosis] Onset: 4 05-09-2023 Episodic Other gastrointestinal disorders (20 sources) Dysphagia; Translations: [Dysphagia, unspecified] Onset: 4 04-26-2018 Episodic Other injuries and conditions due to external causes (1 source) Other specified injuries of head, initial encounter; Translations: [OTH SPEC INJURIES HEAD INITIAL ENC] Onset: 2 Episodic Other nutritional; endocrine; and metabolic disorders (5 sources) Body mass index 25-29 - overweight; Translations: [Overweight] Onset: 7 Resolved: 3 04-15-2023 Episodic Other screening for suspected conditions (not mental disorders or infectious disease) (5 sources) Abnormal electrocardiogram [ECG] [EKG]; Translations: [Encounter for screening for malignant neoplasm of prostate] Onset: 3 Episodic Other skin disorders (8 sources) Actinic keratosis; Translations: [Actinic keratosis] Onset: 7 09-29-2022 Episodic Spondylosis; intervertebral disc disorders; other back problems (20 sources) Lumbar radiculopathy; Translations: [Radiculopathy, lumbar region] Onset: 2 05-12-2019 Episodic Sprains and strains (17 sources) Sprain of joints and ligaments of unspecified parts of neck, initial encounter; Translations: [Glenoid labrum tear] Onset: 9 09-29-2022 Episodic Superficial injury; contusion (1 source) Contusion of right upper arm, initial encounter; Translations: [CONTUSION RIGHT UPPER ARM INITIAL] Onset: 2 Episodic Thyroid disorders (20 sources) Mass of thyroid gland; Translations: [Other specified disorders of thyroid] Onset: 4 03-29-2024 Episodic Unclassified (1 source) Lumbar pain M54.50 Results Test Name Value Interpretation Reference Range Facility Alanine aminotransferase [En zymatic activity/volume] in Serum or PlasmaOrdered By: Romel Davis on 10-10-2024 ALT [Catalytic activity/Vol] Alanine aminotransferase [Enzymatic activity/volume] in Serum or Plasma [facility] Albumin [Mass/volume] in Ser um or Plasma by Bromocresol green (BCG) dye binding methoOrdered By: Romel Davis on 10-10-2024 Albumin BCG dye [Mass/Vol] Albumin [Mass/volume] in Serum or Plasma by Bromocresol green (BCG) dye binding metho 3.5-5.7 [facility] Alkaline phosphatase [Enzyma tic activity/volume] in Serum or PlasmaOrdered By: Romel Davis on 10-10-2024 ALP [Catalytic activity/Vol] Alkaline phosphatase [Enzymatic activity/volume] in Serum or Plasma 34-104 [facility] Appearance of UrineOrdered B y: Romel Davis on 10-10-2024 Appearance (U) Urine appearance Clear [facility] Aspartate aminotransferase [ Enzymatic activity/volume] in Serum or PlasmaOrdered By: Romel Davis on 10-10-2024 AST [Catalytic activity/Vol] Aspartate aminotransferase [Enzymatic activity/volume] in Serum or Plasma 13-39 [facility] Bacteria [Presence] in Urine by AutomatedOrdered By: Romel Davis on 10-10-2024 Bacteria Auto Ql (U) Bacteria [Presence] in Urine by Automated None Seen [facility] Basophils Auto (Bld) [#/Vol] Ordered By: Romel Davis on 10-10-2024 Basophils (Bld) [#/Vol] Automated basophil count 0.0-0.2 [facility] Basophils/100 WBC Auto (Bld) Ordered By: Romel Davis on 10-10-2024 Basophils/100 WBC (Bld) Automated basophil % . [facility] Bilirubin Test strip Ql (U)O rdered By: Rmoel Davis on 10-10-2024 Bilirubin Ql (U) Bilirubin.total [Pre sence] in Urine by Test strip Negative [facility] Bilirubin.total [Mass/volume ] in Serum or PlasmaOrdered By: Romel Davis on 10-10-2024 Bilirubin [Mass/Vol] Bilirubin.total [Mass/volume] in Serum or Plasma 0.3-1.0 [facility] Calcium [Mass/volume] in Ser um or PlasmaOrdered By: Romel Davis on 10-10-2024 Calcium [Mass/Vol] Calcium [Mass/volume ] in Serum or Plasma 8.6-10.3 [facility] Carbon dioxide, total [Moles /volume] in Serum or PlasmaOrdered By: Romel Davis on 10-10-2024 CO2 [Moles/Vol] Carbon dioxide, tota l [Moles/volume] in Serum or Plasma 21.0-31.0 [facility] Chloride [Moles/volume] in S ace or PlasmaOrdered By: Romel Mendezrow on 10-10-2024 Chloride [Moles/Vol] Chloride [Moles/vol ume] in Serum or Plasma 98-107 [facility] Color Auto (U)Ordered By: Bridgett Davis on 10-10-2024 Color (U) Color of Urine by Auto Yellow Fi [facility] Complement C3on 10-10-2024 Complement C3 130 mg/dL Normal 82-167 [facility] Comment on above: Result Comment: Perf ormed at: - [facility] [address] [id number] Materials Planning Analyst: Richy Ardon PhD, Phone: [phone] Performed By: #### C 3, C4, CH50 ####[facility] ,#### ESR, CMP, CBC, ADDONUAPLUS ####[place] [id number] [address] Complement C4on 10-10-2024 Complement C4 13 mg/dL Normal 12-38 [facility] Comment on above: Result Comment: PERF ORMED BY: [facility] [address] [place] [address] PATHOLOGIST COMPUTER GAME TESTER HECTOR MEJIA M.D. Performed By: #### C 3, C4, CH50 ####[facility] ,#### ESR, CMP, CBC, ADDONUAPLUS ####[address] Complement Total (CH50)on Complement Total (CH50) 59 Normal >41 [facility] Comment on above: Result Comment: [...] out of range values. Performed at: - [facility] [id number] Materials Planning Analyst: Richy Ardon PhD, Phone: [phone] PERFORMED BY: [place] [address] PATHOLOGIST COMPUTER GAME TESTER HECTOR MEJIA M.D. Performed By: #### C 3, C4, CH50 ####[facility] ,#### ESR, CMP, CBC, ADDONUAPLUS ####[address] Complete Blood Count Auto Di ffon 10-10-2024 Basophils (Bld) [#/Vol] 0.1 10*3/uL Normal 0.0-0.2 [facility] Comment on above: Performed By: #### C 3, C4, CH50 ####[facility] ,#### ESR, CMP, CBC, ADDONUAPLUS ####[address] Basophils/100 WBC (Bld) 0.9 % Normal . [facility] Comment on above: Performed By: #### C 3, C4, CH50 ####[facility] ,#### ESR, CMP, CBC, ADDONUAPLUS ####[address] Eosinophils (Bld) [#/Vol] 0.1 10*3/uL Normal 0.0-0.45 [facility] Comment on above: Performed By: #### C 3, C4, CH50 ####[facility] ,#### ESR, CMP, CBC, ADDONUAPLUS ####[address] Eosinophils/100 WBC (Bld) 1.5 % Normal . [facility] Comment on above: Performed By: #### C 3, C4, CH50 ####[facility] ,#### ESR, CMP, CBC, ADDONUAPLUS ####[address] Erythrocyte distribution width (RBC) [Ratio] 14.5 % Normal 12.0-14.8 [facility] Comment on above: Performed By: #### C 3, C4, CH50 ####[facility] ,#### ESR, CMP, CBC, ADDONUAPLUS ####[address] Hematocrit (Bld) [Volume fraction] 44.8 % Normal 38.8-50.0 [facility] Comment on above: Performed By: #### C 3, C4, CH50 ####[facility] ,#### ESR, CMP, CBC, ADDONUAPLUS ####[address] Hemoglobin (Bld) [Mass/Vol] 15.4 g/dL Normal 13.0-17.0 [facility] Comment on above: Performed By: #### C 3, C4, CH50 ####[facility] ,#### ESR, CMP, CBC, ADDONUAPLUS ####[address] Lymphocytes (Bld) [#/Vol] 0.9 10*3/uL Low 1.00-4.8 [facility] Comment on above: Performed By: #### C 3, C4, CH50 ####[facility] ,#### ESR, CMP, CBC, ADDONUAPLUS ####[address] Lymphocytes/100 WBC (Bld) 12.7 % Normal . [facility] Comment on above: Performed By: #### C 3, C4, CH50 ####[facility] ,#### ESR, CMP, CBC, ADDONUAPLUS ####[address] MCH (RBC) [Entitic mass] 31.2 pg Normal 27.5-35.2 [facility] Comment on above: Performed By: #### C 3, C4, CH50 ####[facility] ,#### ESR, CMP, CBC, ADDONUAPLUS ####[address] MCV (RBC) [Entitic vol] 90.6 fL Normal 83.5-101 [facility] Comment on above: Performed By: #### C 3, C4, CH50 ####[facility] ,#### ESR, CMP, CBC, ADDONUAPLUS ####[address] Mean Corpuscular HGB Conc 34.4 g/dL Normal 32.5-35.6 [facility] Comment on above: Performed By: #### C 3, C4, CH50 ####[facility] ,#### ESR, CMP, CBC, ADDONUAPLUS ####[address] Monocytes (Bld) [#/Vol] 0.9 10*3/uL High 0.0-0.8 [facility] Comment on above: Performed By: #### C 3, C4, CH50 ####[facility] ,#### ESR, CMP, CBC, ADDONUAPLUS ####[address] Monocytes/100 WBC (Bld) 12.1 % Normal . [facility] Comment on above: Performed By: #### C 3, C4, CH50 ####[facility] ,#### ESR, CMP, CBC, ADDONUAPLUS ####[place] [id number] [place] Neutrophils (Bld) [#/Vol] 5.2 10*3/uL Normal 1.8-7.7 [facility] Comment on above: Performed By: #### C 3, C4, CH50 ####[facility] ,#### ESR, CMP, CBC, ADDONUAPLUS ####[address] Neutrophils/100 WBC (Bld) 72.8 % Normal . [facility] Comment on above: Performed By: #### C 3, C4, CH50 ####[facility] ,#### ESR, CMP, CBC, ADDONUAPLUS ####[address] NRBC% 0.2 /100{WBC} Normal 0-0.5 [facility] Comment on above: Performed By: #### C 3, C4, CH50 ####[facility] ,#### ESR, CMP, CBC, ADDONUAPLUS ####[address] Platelet mean volume (Bld) [Entitic vol] 8.0 fL Normal 6.6-10.1 [facility] Comment on above: Performed By: #### C 3, C4, CH50 ####[facility] ,#### ESR, CMP, CBC, ADDONUAPLUS ####[address] Platelets (Bld) [#/Vol] 165 10*3/uL Normal 150-450 [facility] Comment on above: Performed By: #### C 3, C4, CH50 ####[facility] ,#### ESR, CMP, CBC, ADDONUAPLUS ####[address] RBC (Bld) [#/Vol] 4.94 10*6/uL Normal 3.90-5.60 [facility] Comment on above: Performed By: #### C 3, C4, CH50 ####[facility] ,#### ESR, CMP, CBC, ADDONUAPLUS ####[address] WBC (Bld) [#/Vol] 7.2 10*3/uL Normal 4.1-10.5 [facility] Comment on above: Performed By: #### C 3, C4, CH50 ####[facility] ,#### ESR, CMP, CBC, ADDONUAPLUS ####[address] [facility] Albumin [Mass/Vol] 4.0 g/dL Normal 3.5-5.7 [facility] Comment on above: Performed By: #### C 3, C4, CH50 ####[facility] ,#### ESR, CMP, CBC, ADDONUAPLUS ####[address] Albumin/Globulin [Mass ratio] 1.9 {ratio} Normal [facility] Comment on above: Performed By: #### C 3, C4, CH50 ####[facility] ,#### ESR, CMP, CBC, ADDONUAPLUS ####[address] ALP [Catalytic activity/Vol] 85 U/L Normal 34-104 [facility] Comment on above: Result Comment: PERF ORMED BY: [facility] [address] [place] [address] PATHOLOGIST COMPUTER GAME TESTER HECTOR MEJIA M.D. Performed By: #### C 3, C4, CH50 ####[facility] ,#### ESR, CMP, CBC, ADDONUAPLUS ####[address] ALT [Catalytic activity/Vol] 27 U/L Normal 7-52 [facility] Comment on above: Performed By: #### C 3, C4, CH50 ####[facility] ,#### ESR, CMP, CBC, ADDONUAPLUS ####[address] Anion gap [Moles/Vol] 11.3 mmol/L Normal 6.0-15.0 [facility] Comment on above: Performed By: #### C 3, C4, CH50 ####[facility] ,#### ESR, CMP, CBC, ADDONUAPLUS ####[address] AST [Catalytic activity/Vol] 16 U/L Normal 13-39 [facility] Comment on above: Performed By: #### C 3, C4, CH50 ####[facility] ,#### ESR, CMP, CBC, ADDONUAPLUS ####[address] Bilirubin [Mass/Vol] 0.5 mg/dL Normal 0.3-1.0 [facility] Comment on above: Performed By: #### C 3, C4, CH50 ####[facility] ,#### ESR, CMP, CBC, ADDONUAPLUS ####[address] Calcium [Mass/Vol] 8.9 mg/dL Normal 8.6-10.3 [facility] Comment on above: Performed By: #### C 3, C4, CH50 ####[facility] ,#### ESR, CMP, CBC, ADDONUAPLUS ####[address] Chloride [Moles/Vol] 107 mmol/L Normal 98-107 [facility] Comment on above: Performed By: #### C 3, C4, CH50 ####[facility] ,#### ESR, CMP, CBC, ADDONUAPLUS ####[address] CO2 [Moles/Vol] 24.0 mmol/L Normal 21.0-31.0 [facility] Comment on above: Performed By: #### C 3, C4, CH50 ####[facility] ,#### ESR, CMP, CBC, ADDONUAPLUS ####[address] Creatinine [Mass/Vol] 0.95 mg/dL Normal 0.70-1.30 [facility] Comment on above: Performed By: #### C 3, C4, CH50 ####[facility] ,#### ESR, CMP, CBC, ADDONUAPLUS ####[address] GFR/1.73 sq M.predicted MDRD (S/P/Bld) [Vol rate/Area] mL/min/{1.73_m2} Normal [facility] Comment on above: Performed By: #### C 3, C4, CH50 ####[facility] ,#### ESR, CMP, CBC, ADDONUAPLUS ####[address] Globulin (S) [Mass/Vol] 2.1 g/dL Normal [facility] Comment on above: Performed By: #### C 3, C4, CH50 ####[facility] ,#### ESR, CMP, CBC, ADDONUAPLUS ####[address] Glucose [Mass/Vol] 96 mg/dL Normal 70-100 [facility] Comment on above: Result Comment: [place] om Glucose Reference Range is dependent on time and content of last meal. Glucose of more than 200 mg/dL in a nonstressed, ambulatory subject supports the diagnosis of Diabetes Mellitus. ADA recommended reference range Performed By: #### C 3, C4, CH50 ####[facility] ,#### ESR, CMP, CBC, ADDONUAPLUS ####[address] Potassium [Moles/Vol] 4.3 mmol/L Normal 3.5-5.1 [facility] Comment on above: Performed By: #### C 3, C4, CH50 ####[facility] ,#### ESR, CMP, CBC, ADDONUAPLUS ####[address] Protein [Mass/Vol] 6.1 g/dL Low 6.4-8.9 [facility] Comment on above: Performed By: #### C 3, C4, CH50 ####[facility] ,#### ESR, CMP, CBC, ADDONUAPLUS ####[address] Sodium [Moles/Vol] 138 mmol/L Normal 136-145 [facility] Comment on above: Performed By: #### C 3, C4, CH50 ####[facility] ,#### ESR, CMP, CBC, ADDONUAPLUS ####[address] Urea nitrogen [Mass/Vol] 28 mg/dL High 7-25 [facility] Comment on above: Performed By: #### C 3, C4, CH50 ####[facility] ,#### ESR, CMP, CBC, ADDONUAPLUS ####[address] Creatinine [Mass/volume] in Serum or PlasmaOrdered By: Romel Davis on 10-10-2024 Creatinine [Mass/Vol] Creatinine [Mass/v olume] in Serum or Plasma 0.70-1.30 [facility] Dipstick and Microscopicon 1 12-10-2023 Appearance (U) Clear Normal Clear [facility] Comment on above: Order Comment: Name Collection Type:: Clean-Voided Midstream Performed By: #### C 3, C4, CH50 ####[facility] ,#### ESR, CMP, CBC, ADDONUAPLUS ####[address] Bacteria,Urine None Seen Normal None Seen [facility] Comment on above: Order Comment: Name Collection Type:: Clean-Voided Midstream Performed By: #### C 3, C4, CH50 ####[facility] ,#### ESR, CMP, CBC, ADDONUAPLUS ####[address] Bilirubin,Urine Negative Normal Negative [facility] Comment on above: Order Comment: Name Collection Type:: Clean-Voided Midstream Performed By: #### C 3, C4, CH50 ####[facility] ,#### ESR, CMP, CBC, ADDONUAPLUS ####[address] Color (U) Yellow Normal Yellow [facility] Comment on above: Order Comment: Name Collection Type:: Clean-Voided Midstream Performed By: #### C 3, C4, CH50 ####[facility] ,#### ESR, CMP, CBC, ADDONUAPLUS ####[address] Glucose Ql (U) Normal Normal Normal [facility] Comment on above: Order Comment: Name Collection Type:: Clean-Voided Midstream Performed By: #### C 3, C4, CH50 ####[facility] ,#### ESR, CMP, CBC, ADDONUAPLUS ####[place] [id number] [facility] Hyaline Casts,Urine None Normal 0-8 [facility] Comment on above: Order Comment: Name Collection Type:: Clean-Voided Midstream Performed By: #### C 3, C4, CH50 ####[facility] ,#### ESR, CMP, CBC, ADDONUAPLUS ####[address] Ketones Ql (U) Negative Normal Negative [facility] Comment on above: Order Comment: Name Collection Type:: Clean-Voided Midstream Performed By: #### C 3, C4, CH50 ####[facility] ,#### ESR, CMP, CBC, ADDONUAPLUS ####[address] Leukocyte esterase Test strip Ql (U) Negative Normal Negative [facility] Comment on above: Order Comment: Name Collection Type:: Clean-Voided Midstream Performed By: #### C 3, C4, CH50 ####[facility] ,#### ESR, CMP, CBC, ADDONUAPLUS ####[address] Mucus,Urine 1+ Critically abnormal [facility] Comment on above: Order Comment: Name Collection Type:: Clean-Voided Midstream Result Comment: PERF ORMED BY: [facility] [address] [place] [address] PATHOLOGIST COMPUTER GAME TESTER HECTOR MEJIA M.D. Performed By: #### C 3, C4, CH50 ####[facility] ,#### ESR, CMP, CBC, ADDONUAPLUS ####[address] Nitrite,Urine Negative Normal Negative [facility] Comment on above: Order Comment: Name Collection Type:: Clean-Voided Midstream Performed By: #### C 3, C4, CH50 ####[facility] ,#### ESR, CMP, CBC, ADDONUAPLUS ####[address] Occult Blood,Urine Negative Normal Negative [facility] Comment on above: Order Comment: Name Collection Type:: Clean-Voided Midstream Performed By: #### C 3, C4, CH50 ####[facility] ,#### ESR, CMP, CBC, ADDONUAPLUS ####[address] pH (U) 5.5 [pH] Normal 5.0-9.0 [facility] Comment on above: Order Comment: Name Collection Type:: Clean-Voided Midstream Performed By: #### C 3, C4, CH50 ####[facility] ,#### ESR, CMP, CBC, ADDONUAPLUS ####[address] Protein (U) [Mass/Vol] 20 mg/dL High Negative [facility] Comment on above: Order Comment: Name Collection Type:: Clean-Voided Midstream Performed By: #### C 3, C4, CH50 ####[facility] ,#### ESR, CMP, CBC, ADDONUAPLUS ####[address] RBC,Urine 1 [HPF] Normal 0-4 [facility] Comment on above: Order Comment: Name Collection Type:: Clean-Voided Midstream Performed By: #### C 3, C4, CH50 ####[facility] ,#### ESR, CMP, CBC, ADDONUAPLUS ####[address] Specificy Moffit,Urine 1.029 Normal 1.001-1.03 0 [facility] Comment on above: Order Comment: Name Collection Type:: Clean-Voided Midstream Performed By: #### C 3, C4, CH50 ####[facility] ,#### ESR, CMP, CBC, ADDONUAPLUS ####[address] Urobilinogen,Urine Normal Normal Normal [facility] Comment on above: Order Comment: Name Collection Type:: Clean-Voided Midstream Performed By: #### C 3, C4, CH50 ####[facility] ,#### ESR, CMP, CBC, ADDONUAPLUS ####[place] [id number] [address] WBC,Urine 1 [HPF] Normal 0-4 [facility] Comment on above: Order Comment: Name Collection Type:: Clean-Voided Midstream Performed By: #### C 3, C4, CH50 ####[facility] ,#### ESR, CMP, CBC, ADDONUAPLUS ####[address] Eosinophils Auto (Bld) [#/Vo l]Ordered By: Romel Davis on 10-10-2024 Eosinophils (Bld) [#/Vol] Automated eosinophil count 0.0-0.45 [facility] Eosinophils/100 WBC Auto (Bl d)Ordered By: Romel Davis on 10-10-2024 Eosinophils/100 WBC (Bld) Automated eosinophil % . [facility] Epithelial cells.squamous [# /area] in Urine sediment by Automated countOrdered By: Romel Davis on 10-10-2024 Epithelial cells.squamous Auto (Urine sed) [#/Area] Epithelial cells.squamous [#/area] in Urine sediment by Automated count [facility] Erythrocyte Sedimentation Ra bruno 10-10-2024 ESR (Bld) [Velocity] 6 mm/h Normal 0-19 [facility] Comment on above: Result Comment: PERF ORMED BY: [facility] [address] [place] [address] PATHOLOGIST COMPUTER GAME TESTER HECTOR MEJIA M.D. Performed By: #### C 3, C4, CH50 ####[facility] ,#### ESR, CMP, CBC, ADDONUAPLUS ####[address] Erythrocyte distribution wid th Auto (RBC) [Ratio]Ordered By: Romel Davis on 10-10-2024 Erythrocyte distribution width (RBC) [Ratio] Erythrocyte distribution width [Ratio] by Automated count 12.0-14.8 [facility] Erythrocyte sedimentation ra te by Photometric methodOrdered By: Romel Davis on 10-10-2024 ESR Photometric method (Bld) [Velocity] Erythrocyte sedimentation rate by Photometric method 0-19 [facility] Erythrocytes [#/area] in Uri ne sediment by Automated countOrdered By: Romel Davis on 10-10-2024 RBC Auto (Urine sed) [#/Area] Erythrocytes [#/area] in Urine sediment by Automated count 0-4 [facility] Globulin Calc (S) [Mass/Vol] Ordered By: Romel Davis on 10-10-2024 Globulin (S) [Mass/Vol] Serum globulin measurement by calculation (mass/volume) [facility] Glucose [Mass/volume] in Ser um or PlasmaOrdered By: Romel Davis 10-10-2024 Glucose [Mass/Vol] Glucose [Mass/volume ] in Serum or Plasma 70-100 [facility] Comment on above: ADA recommended refe rence rangeRandom Glucose Reference Range is dependent on time and content of last meal. Glucose of more than 200 mg/dL in a nonstressed, ambulatory subject supports the diagnosis of Diabetes Mellitus. Glucose [Mass/volume] in Uri ne by Test stripOrdered By: Romel Davis 10-10-2024 Glucose Test strip (U) [Mass/Vol] Glucose [Mass/volume] in Urine by Test strip Normal [facility] Hematocrit Auto (Bld) [Volum e fraction]Ordered By: Romel Davis on 10-10-2024 Hematocrit (Bld) [Volume fraction] Hematocrit [Volume Fraction] of Blood by Automated count 38.8-50.0 [facility] Hemoglobin Test strip Ql (U) Ordered By: Romel Davis on 10-10-2024 Hemoglobin Ql (U) Hemoglobin [Presence ] in Urine by Test strip Negative [facility] Hemoglobin [Mass/volume] in BloodOrdered By: Romel Davis 10-10-2024 Hemoglobin (Bld) [Mass/Vol] Hemoglobin [Mass/volume] in Blood 13.0-17.0 [facility] Hyaline casts [#/area] in Ur ine sediment by Automated countOrdered By: Romel Davis on 10-10-2024 Hyaline casts Auto (Urine sed) [#/Area] Hyaline casts [#/area] in Urine sediment by Automated count 0-8 [facility] Ketones Test strip Ql (U)Ord ered By: Romel Davis on 10-10-2024 Ketones Ql (U) Ketones [Presence] i n Urine by Test strip Negative [facility] Leukocyte esterase [Presence ] in Urine by Test stripOrdered By: Romel Davis on 10-10-2024 Leukocyte esterase Test strip Ql (U) Leukocyte esterase [Presence] in Urine by Test strip Negative [facility] Leukocytes [#/area] in Urine sediment by Automated countOrdered By: Romel Davis on 10-10-2024 WBC Auto (Urine sed) [#/Area] Leukocytes [#/area] in Urine sediment by Automated count 0-4 [facility] Leukocytes [#/volume] correc nat for nucleated erythrocytes in Blood by Automated counOrdered By: Romel Davis on 10-10-2024 WBC corrected for nucl RBC Auto (Bld) [#/Vol] Leukocytes [#/volume] corrected for nucleated erythrocytes in Blood by Automated coun 4.1-10.5 [facility] Lymphocytes Auto (Bld) [#/Vo l]Ordered By: Romel Davis on 10-10-2024 Lymphocytes (Bld) [#/Vol] Lymphocytes [#/volume] in Blood by Automated count Low 1.00-4.8 [facility] Lymphocytes/100 WBC Auto (Bl d)Ordered By: Romel Davis on 10-10-2024 Lymphocytes/100 WBC (Bld) Lymphocytes/100 leukocytes in Blood by Automated count . [facility] MCH Auto (RBC) [Entitic mass ]Ordered By: Romel Davis on 10-10-2024 MCH (RBC) [Entitic mass] MCH [Entitic mass] by Automated count 27.5-35.2 [facility] MCHC Auto (RBC) [Mass/Vol]Or dered By: Romel Davis on 10-10-2024 MCHC (RBC) [Mass/Vol] MCHC [Mass/volume] by Automated count 32.5-35.6 [facility] MCV Auto (RBC) [Entitic vol] Ordered By: Romel Davis on 10-10-2024 MCV (RBC) [Entitic vol] MCV [Entitic volume] by Automated count 83.5-101 [facility] Monocytes Auto (Bld) [#/Vol] Ordered By: Romel Davis on 10-10-2024 Monocytes (Bld) [#/Vol] Automated blood monocyte count High 0.0-0.8 [facility] Monocytes/100 WBC Auto (Bld) Ordered By: Romel Davis on 10-10-2024 Monocytes/100 WBC (Bld) Automated monocyte % . [facility] Mucus [Presence] in Urine by AutomatedOrdered By: Romel Davis on 10-10-2024 Mucus Auto Ql (U) Mucus [Presence] in Urine by Automated Abnormal [facility] Neutrophils Auto (Bld) [#/Vo l]Ordered By: Romel Davis on 10-10-2024 Neutrophils (Bld) [#/Vol] Neutrophils [#/volume] in Blood by Automated count 1.8-7.7 [facility] Neutrophils/100 WBC Auto (Bl d)Ordered By: Romel Davis on 10-10-2024 Neutrophils/100 WBC (Bld) Automated neutrophil % . [facility] Nitrite Test strip Ql (U)Ord ered By: Romel Davis on 10-10-2024 Nitrite Ql (U) Nitrite [Presence] i n Urine by Test strip Negative [facility] No Panel InformationOrdered By: Romel Davis on 10-10-2024 Estimated GFR (CKD-EPI) > 60.0 mL/Min [facility] Creatinine Clearance (Chem N/A [facility] Nucleated erythrocytes [Pres ence] in Blood by Automated countOrdered By: Romle Davis on 10-10-2024 Nucleated RBC Auto Ql (Bld) Nucleated erythrocytes [Presence] in Blood by Automated count 0-0.5 [facility] Platelet mean volume Auto (B ld) [Entitic vol]Ordered By: Romel Davis on 10-10-2024 Platelet mean volume (Bld) [Entitic vol] Platelet mean volume [Entitic volume] in Blood by Automated count 6.6-10.1 [facility] Platelets Auto (Bld) [#/Vol] Ordered By: Romel Davis on 10-10-2024 Platelets (Bld) [#/Vol] Platelets [#/volume] in Blood by Automated count 150-450 [facility] Potassium [Moles/volume] in Serum or PlasmaOrdered By: Romel Davis on 10-10-2024 Potassium [Moles/Vol] Potassium [Moles/v olume] in Serum or Plasma 3.5-5.1 [facility] Protein Test strip (U) [Mass /Vol]Ordered By: Romel Davis on 10-10-2024 Protein (U) [Mass/Vol] Protein [Mass/vol ume] in Urine by Test strip High Negative [facility] Protein [Mass/volume] in Ser um or PlasmaOrdered By: Romel Davis on 10-10-2024 Protein [Mass/Vol] Protein [Mass/volume ] in Serum or Plasma Low 6.4-8.9 [facility] RBC Auto (Bld) [#/Vol]Ordere d By: Romel Davis on 10-10-2024 RBC (Bld) [#/Vol] Erythrocytes [#/volu me] in Blood by Automated count 3.90-5.60 [facility] Serum or plasma albumin/glob ulin mass ratioOrdered By: Romel Davis on 10-10-2024 Albumin/Globulin [Mass ratio] Serum or plasma albumin/globulin mass ratio [facility] Serum or plasma anion gap de terminationOrdered By: Romel Davis on 10-10-2024 Anion gap [Moles/Vol] Serum or plasma an ion gap determination 6.0-15.0 [facility] Sodium [Moles/volume] in Ser um or PlasmaOrdered By: Romel Davis on 10-10-2024 Sodium [Moles/Vol] Sodium [Moles/volume ] in Serum or Plasma 136-145 [facility] Specific gravity Test strip (U) [Rel density]Ordered By: Romel Davis on 10-10-2024 Specific gravity (U) [Rel density] Specific gravity of Urine by Test strip 1.001-1.03 0 [facility] Urea nitrogen [Mass/volume] in Serum or PlasmaOrdered By: Romel Davis on 10-10-2024 Urea nitrogen [Mass/Vol] Urea nitrogen [Mass/volume] in Serum or Plasma High 7-25 [facility] Urobilinogen Test strip (U) [Mass/Vol]Ordered By: Romel Davis on 10-10-2024 Urobilinogen (U) [Mass/Vol] Urobilinogen [Mass/volume] in Urine by Test strip Normal [facility] WBC Auto (Bld) [#/Vol]Ordere d By: Romel Davis on 10-10-2024 WBC (Bld) [#/Vol] Leukocytes [#/volume ] in Blood by Automated count 4.1-10.5 [facility] pH Test strip (U)Ordered By: Romel Davis on 10-10-2024 pH (U) pH of Urine by Test strip 5.0-9.0 [facility] XR chest 2V*on 09-19-2024 XR chest 2V* [facility] [address] XRay Report Signed Patient: Valentin Torre MR#: [id number] [birth year] : 1955 Acct:[id number] Age/Sex: 69 / M ADM Date: 09/19/24 Loc: [facility] Room: Type: [facility] Attending Dr: Myriam Fonseca APRN Copies to: Myriam Fonseca APRN Ordering Provider: Myriam Fonseca APRN Date of Service: 09/19/24 XR/XR chest 2V*: R05.9 - Cough, unspecified Chest 2 views CLINICAL HISTORY: Productive cough for one week. COMPARISON: None FINDINGS: Heart normal in size. Lungs are clear. No free air. XR/XR chest 2V* IMPRESSION: NO ACUTE CARDIOPULMONARY ABNORMALITY. Impression dictated by: Marcial Patel Jr., D.O.09/19/2024 10:00 AM Dictation Location: [place] [address] Transcribed By: [facility] 09/19/24 1000 Dictated By: Marcial Patel Jr, DO 09/19/24 1000 Signed By: 09/19/24 1000 Normal [facility] Ambulatory Visit Summaryon 1 Ambulatory Visit Summary [...] Following Appointments Follow Up with FLAVIO ONEAL, Zac De Oliveira, EMILIA When: Where: [facility] [address] , [place] [address] [phone] Medications What How Much When Why Instructions [...] laser th (more content not included)... Normal [facility] Urology Office/Clinic Noteon 09-03-2024 Urology Office/Clinic [...] Electrolyte panel 10/20/23 - wnl. KUB 01/11/24 [facility] - Kidneys are partially obscured, R>L. Group [...] Oliveira, URL [facility] [address] [place] [address] [phone] Additional Instructions: esthela De Oliveira ESWL Patient Education Laser Therapy for Kidney Stones, Care After Laser Therapy for Kidney Stones Adela López, personally scribed for Dr. Muniz on 09/03/2024 11:01:31. . Documentation recorded by the scribeAdela, accurately [...] prednisoLONE, Oral, (more content not included)... Normal [facility] Comment on above: Result Comment: Elec tronically Signed By: Zac MUNIZ MD\.br\Date and Time Signed: 09/03/24 11:02 EDT\.br\Electronically Co-Signed By: Adela Frias\.br\Date and Time Co-Signed: 09/03/24 11:01 EDT XR hip RT min 2V(w/wo pelvis )*on 08-29-2024 XR hip RT min 2V(w/wo pelvis)* [facility] [facility] [address] [place] [address] XRay Report Signed Patient: Valentin Torre MR#: [id number] 29 : 1955 Acct:[id number] Age/Sex: 69 / M ADM Date: 08/29/24 Loc: [facility] Room: Type: [facility] Attending Dr: Jaime Murcia II, MD Copies [...] PROCESS.. Impression dictated by: Marcial Patel Jr., Rosalie08/29/2024 2:18 PM Dictation Location: [place] [address] Transcribed By: [facility] 08/29/24 141 Dictated By: Marcial Patel Jr, DO 08/29/241416 Signed By: 08/29/24 141 Normal [facility] Alanine aminotransferase [En zymatic activity/volume] in Serum or PlasmaOrdered By: Romel Davis on 07-03-2024 ALT [Catalytic activity/Vol] 21 U/L Normal 7-52 [facility] Comment on above: Performed By: #### C 4, CH50, C3 ####[facility] ,#### CMP, ADDONUAPLUS, CBC, ESR ####[facility] [id number] [place] [address] [facility] Albumin [Mass/volume] in Ser um or Plasma by Bromocresol green (BCG) dye binding methoOrdered By: Romel Davis on 07-03-2024 Albumin BCG dye [Mass/Vol] 4.2 g/dL 3.5-5.7 [facility] Alkaline phosphatase [Enzyma tic activity/volume] in Serum or PlasmaOrdered By: Romel Davis on 07-03-2024 ALP [Catalytic activity/Vol] 85 U/L Normal 34-104 [facility] Comment on above: Result Comment: PERF ORMED BY: [facility] [address] [place] [address] PATHOLOGIST COMPUTER GAME TESTER OLMAN ALBARRAN M.D. Performed By: #### C 4, CH50, C3 ####[facility] ,#### CMP, ADDONUAPLUS, CBC, ESR ####[address] Aspartate aminotransferase [ Enzymatic activity/volume] in Serum or PlasmaOrdered By: Romel Davis on 07-03-2024 AST [Catalytic activity/Vol] 16 U/L Normal 13-39 [facility] Comment on above: Performed By: #### C 4, CH50, C3 ####[facility] ,#### CMP, ADDONUAPLUS, CBC, ESR ####[address] Automated basophil %Ordered By: Romel Davis on 07-03-2024 Basophils/100 WBC (Bld) 0.5 % Normal . [facility] Comment on above: Performed By: #### C 4, CH50, C3 ####[facility] ,#### CMP, ADDONUAPLUS, CBC, ESR ####[address] Automated basophil countOrde red By: Romel Mendezrow on 07-03-2024 Basophils (Bld) [#/Vol] 0.0 10*3/uL Normal 0.0-0.2 [facility] Comment on above: Performed By: #### C 4, CH50, C3 ####[facility] ,#### CMP, ADDONUAPLUS, CBC, ESR ####[address] Automated blood monocyte cou ntOrdered By: Romel Mendezrow on 07-03-2024 Monocytes (Bld) [#/Vol] 0.4 10*3/uL Normal 0.0-0.8 [facility] Comment on above: Performed By: #### C 4, CH50, C3 ####[facility] ,#### CMP, ADDONUAPLUS, CBC, ESR ####[address] Automated eosinophil %Ordere d By: Romel Mendezrow on 07-03-2024 Eosinophils/100 WBC (Bld) 1.1 % Normal . [facility] Comment on above: Performed By: #### C 4, CH50, C3 ####[facility] ,#### CMP, ADDONUAPLUS, CBC, ESR ####[address] Automated eosinophil countOr dered By: Romel Davis on 07-03-2024 Eosinophils (Bld) [#/Vol] 0.1 10*3/uL Normal 0.0-0.45 [facility] Comment on above: Performed By: #### C 4, CH50, C3 ####[facility] ,#### CMP, ADDONUAPLUS, CBC, ESR ####[address] Automated monocyte %Ordered By: Romel Davis on 07-03-2024 Monocytes/100 WBC (Bld) 7.9 % Normal . [facility] Comment on above: Performed By: #### C 4, CH50, C3 ####[facility] ,#### CMP, ADDONUAPLUS, CBC, ESR ####[address] Automated neutrophil %Ordere d By: Romel Davis on 07-03-2024 Neutrophils/100 WBC (Bld) 76.5 % Normal . [facility] Comment on above: Performed By: #### C 4, CH50, C3 ####[facility] ,#### CMP, ADDONUAPLUS, CBC, ESR ####[address] Bacteria [Presence] in Urine by AutomatedOrdered By: Romel Davis on 07-03-2024 Bacteria Auto Ql (U) None seen [HPF] None Seen [facility] Bilirubin Test strip Ql (U)O rdered By: Romel Davis on 07-03-2024 Bilirubin Ql (U) Negative Negative [facility] Bilirubin.total [Mass/volume ] in Serum or PlasmaOrdered By: Romel Davis on 07-03-2024 Bilirubin [Mass/Vol] 0.5 mg/dL Normal 0.3-1.0 [facility] Comment on above: Performed By: #### C 4, CH50, C3 ####[facility] ,#### CMP, ADDONUAPLUS, CBC, ESR ####[place] [address] [place] [id number] [place] Calcium [Mass/volume] in Ser um or PlasmaOrdered By: Romel Mendezrow on 07-03-2024 Calcium [Mass/Vol] 8.7 mg/dL Normal 8.6-10.3 [facility] Comment on above: Performed By: #### C 4, CH50, C3 ####[facility] ,#### CMP, ADDONUAPLUS, CBC, ESR ####[place] [id number] [facility] Carbon dioxide, total [Moles /volume] in Serum or PlasmaOrdered By: Romel Ryan on 07-03-2024 CO2 [Moles/Vol] 22.6 mmol/L Normal 21.0-31.0 [facility] Comment on above: Performed By: #### C 4, CH50, C3 ####[facility] ,#### CMP, ADDONUAPLUS, CBC, ESR ####[place] [id number] [place] Chloride [Moles/volume] in S ace or PlasmaOrdered By: Romel Ryan on 07-03-2024 Chloride [Moles/Vol] 105 mmol/L Normal 98-107 [facility] Comment on above: Performed By: #### C 4, CH50, C3 ####[facility] ,#### CMP, ADDONUAPLUS, CBC, ESR ####[facility] [id number] [place] [address] [place] Color of Urine by AutoOrdere d By: Romel Ryan on 07-03-2024 Color (U) Yellow Normal Yellow [facility] Comment on above: Order Comment: Name Collection Type:: Clean-Voided Midstream Performed By: #### C 4, CH50, C3 ####[facility] ,#### CMP, ADDONUAPLUS, CBC, ESR ####[address] Complement C3on 07-03-2024 Complement C3 127 mg/dL Normal 82-167 [facility] Comment on above: Result Comment: Perf ormed at: [facility] [place] [address] Materials Planning Analyst: Richy Ardon PhD, Phone: [phone] Performed By: #### C 4, CH50, C3 ####[facility] ,#### CMP, ADDONUAPLUS, CBC, ESR ####[address] Complement C4on 07-03-2024 Complement C4 15 mg/dL Normal 12-38 [facility] Comment on above: Result Comment: Perf ormed at: [address] [id number] Materials Planning Analyst: Richy Ardon PhD, Phone: [phone] PERFORMED BY: [facility] [address] [place] [address] PATHOLOGIST COMPUTER GAME TESTER OLMAN ALBARRAN M.D. Performed By: #### C 4, CH50, C3 ####[facility] ,#### CMP, ADDONUAPLUS, CBC, ESR ####[address] Complement Total (CH50)on Complement Total (CH50) 56 Normal >41 [facility] Comment on above: Result Comment: [...] of range values. Performed at: - [facility] [address], [place], [place] [id number] Materials Planning Analyst: Richy Ardon PhD, Phone: [phone] PERFORMED BY: [facility] [place] [address] PATHOLOGIST COMPUTER GAME TESTER OLMAN ALBARRAN M.D. Performed By: #### C 4, CH50, C3 ####[facility] ,#### CMP, ADDONUAPLUS, CBC, ESR ####[address] Complete Blood Count Auto Di ffon 07-03-2024 Mean Corpuscular HGB Conc 34.2 g/dL Normal 32.5-35.6 [facility] Comment on above: Performed By: #### C 4, CH50, C3 ####[facility] ,#### CMP, ADDONUAPLUS, CBC, ESR ####[address] NRBC% 0.1 /100{WBC} Normal 0-0.5 [facility] Comment on above: Performed By: #### C 4, CH50, C3 ####[facility] ,#### CMP, ADDONUAPLUS, CBC, ESR ####[address] Comprehensive Metabolic Pane vivek 07-03-2024 Albumin [Mass/Vol] 4.2 g/dL Normal 3.5-5.7 [facility] Comment on above: Performed By: #### C 4, CH50, C3 ####[facility] ,#### CMP, ADDONUAPLUS, CBC, ESR ####[address] GFR/1.73 sq M.predicted MDRD (S/P/Bld) [Vol rate/Area] mL/min/{1.73_m2} Normal [facility] Comment on above: Performed By: #### C 4, CH50, C3 ####[facility] ,#### CMP, ADDONUAPLUS, CBC, ESR ####[address] Creatinine [Mass/volume] in Serum or PlasmaOrdered By: Romel Davis on 07-03-2024 Creatinine [Mass/Vol] 0.87 mg/dL Normal 0.70-1.30 [facility] Comment on above: Performed By: #### C 4, CH50, C3 ####[facility] ,#### CMP, ADDONUAPLUS, CBC, ESR ####[address] Dipstick and Microscopicon 0 07-03-2024 Bacteria,Urine None Seen Normal None Seen [facility] Comment on above: Order Comment: Name Collection Type:: Clean-Voided Midstream Performed By: #### C 4, CH50, C3 ####[facility] ,#### CMP, ADDONUAPLUS, CBC, ESR ####[address] Bilirubin,Urine Negative Normal Negative [facility] Comment on above: Order Comment: Name Collection Type:: Clean-Voided Midstream Performed By: #### C 4, CH50, C3 ####[facility] ,#### CMP, ADDONUAPLUS, CBC, ESR ####[place] [id number] [facility] Glucose Ql (U) Normal Normal Normal [facility] Comment on above: Order Comment: Name Collection Type:: Clean-Voided Midstream Performed By: #### C 4, CH50, C3 ####[facility] ,#### CMP, ADDONUAPLUS, CBC, ESR ####[place] [id number] [facility] Hyaline Casts,Urine 9-19 High 0-8 [facility] Comment on above: Order Comment: Name Collection Type:: Clean-Voided Midstream Performed By: #### C 4, CH50, C3 ####[facility] ,#### CMP, ADDONUAPLUS, CBC, ESR ####[address] Mucus,Urine 1+ Critically abnormal [facility] Comment on above: Order Comment: Name Collection Type:: Clean-Voided Midstream Result Comment: PERF ORMED BY: [facility] [address] [place] [id number] PATHOLOGIST COMPUTER GAME TESTER OLMAN ALBARRAN M.D. Performed By: #### C 4, CH50, C3 ####[facility] ,#### CMP, ADDONUAPLUS, CBC, ESR ####[address] Nitrite,Urine Negative Normal Negative [facility] Comment on above: Order Comment: Name Collection Type:: Clean-Voided Midstream Performed By: #### C 4, CH50, C3 ####[facility] ,#### CMP, ADDONUAPLUS, CBC, ESR ####[place] [id number] [facility] Occult Blood,Urine Negative Normal Negative [facility] Comment on above: Order Comment: Name Collection Type:: Clean-Voided Midstream Performed By: #### C 4, CH50, C3 ####[facility] ,#### CMP, ADDONUAPLUS, CBC, ESR ####[address] [facility] Protein,Urine Trace High Negative [facility] Comment on above: Order Comment: Name Collection Type:: Clean-Voided Midstream Performed By: #### C 4, CH50, C3 ####[facility] ,#### CMP, ADDONUAPLUS, CBC, ESR ####[place] [id number] [place] RBC,Urine 1-2 Normal 0-4 [facility] Comment on above: Order Comment: Name Collection Type:: Clean-Voided Midstream Performed By: #### C 4, CH50, C3 ####[facility] ,#### CMP, ADDONUAPLUS, CBC, ESR ####[address] Specificy Moffit,Urine 1.027 Normal 1.001-1.03 0 [facility] Comment on above: Order Comment: Name Collection Type:: Clean-Voided Midstream Performed By: #### C 4, CH50, C3 ####[facility] ,#### CMP, ADDONUAPLUS, CBC, ESR ####[address] Squamous Epithelial Cell,Urine 1-2 Normal 0-2 [facility] Comment on above: Order Comment: Name Collection Type:: Clean-Voided Midstream Performed By: #### C 4, CH50, C3 ####[facility] ,#### CMP, ADDONUAPLUS, CBC, ESR ####[address] Urobilinogen,Urine 2 mg/dL High Normal [facility] Comment on above: Order Comment: Name Collection Type:: Clean-Voided Midstream Performed By: #### C 4, CH50, C3 ####[facility] ,#### CMP, ADDONUAPLUS, CBC, ESR ####[place] [id number] [facility] WBC,Urine 1-2 Normal 0-4 [facility] Comment on above: Order Comment: Name Collection Type:: Clean-Voided Midstream Performed By: #### C 4, CH50, C3 ####[facility] ,#### CMP, ADDONUAPLUS, CBC, ESR ####[address] Epithelial cells.squamous [# /area] in Urine sediment by Automated countOrdered By: Romel Davis on 07-03-2024 Epithelial cells.squamous Auto (Urine sed) [#/Area] 1-2 [HPF] 0-2 [facility] Erythrocyte Sedimentation Ra bruno 07-03-2024 ESR (Bld) [Velocity] 7 mm/h Normal 0-19 [facility] Comment on above: Result Comment: PERF ORMED BY: [facility] [address] [facility] [place] [address] PATHOLOGIST COMPUTER GAME TESTER OLMAN ALBARRAN M.D. Performed By: #### C 4, CH50, C3 ####[facility] ,#### CMP, ADDONUAPLUS, CBC, ESR ####[place] [address] [address] Erythrocyte distribution wid th [Ratio] by Automated countOrdered By: Romel Davis on 07-03-2024 Erythrocyte distribution width (RBC) [Ratio] 15.6 % High 12.0-14.8 [facility] Comment on above: Performed By: #### C 4, CH50, C3 ####[facility] ,#### CMP, ADDONUAPLUS, CBC, ESR ####[place] [address] [address] Erythrocyte sedimentation ra te by Photometric methodOrdered By: Romel Davis on 07-03-2024 ESR Photometric method (Bld) [Velocity] 7 mm/hr 0-19 [facility] Erythrocytes [#/area] in Uri ne sediment by Automated countOrdered By: Romel Davis on 07-03-2024 RBC Auto (Urine sed) [#/Area] 1-2 [HPF] 0-4 [facility] Erythrocytes [#/volume] in B lood by Automated countOrdered By: Romel Davis on 07-03-2024 RBC (Bld) [#/Vol] 5.10 10*6/uL Normal 3.90-5.60 [facility] Comment on above: Performed By: #### C 4, CH50, C3 ####[facility] ,#### CMP, ADDONUAPLUS, CBC, ESR ####[facility] [place] [address] [place] Glucose [Mass/volume] in Ser um or PlasmaOrdered By: Romel Davis on 07-03-2024 Glucose [Mass/Vol] 136 mg/dL High 70-100 [facility] Comment on above: ADA recommended refe rence rangeRandom Glucose Reference Range is dependent on time and content of last meal. Glucose of more than 200 mg/dL in a nonstressed, ambulatory subject supports the diagnosis of Diabetes Mellitus. Result Comment: [place] om Glucose Reference Range is dependent on time and content of last meal. Glucose of more than 200 mg/dL in a nonstressed, ambulatory subject supports the diagnosis of Diabetes Mellitus. ADA recommended reference range Performed By: #### C 4, CH50, C3 ####[facility] ,#### CMP, ADDONUAPLUS, CBC, ESR ####[place] [address] [place] [id number] [facility] Glucose [Mass/volume] in Uri ne by Test stripOrdered By: Romel Davis on 07-03-2024 Glucose Test strip (U) [Mass/Vol] Normal mg/dL Normal [facility] Hematocrit [Volume Fraction] of Blood by Automated countOrdered By: Romel Davis on 07-03-2024 Hematocrit (Bld) [Volume fraction] 44.6 % Normal 38.8-50.0 [facility] Comment on above: Performed By: #### C 4, CH50, C3 ####[facility] ,#### CMP, ADDONUAPLUS, CBC, ESR ####[place] [address] [place] [address] [facility] Hemoglobin Test strip Ql (U) Ordered By: Romel Davis on 07-03-2024 Hemoglobin Ql (U) Negative Negative [facility] Hemoglobin [Mass/volume] in BloodOrdered By: Romel Davis on 07-03-2024 Hemoglobin (Bld) [Mass/Vol] 15.3 g/dL Normal 13.0-17.0 [facility] Comment on above: Performed By: #### C 4, CH50, C3 ####[facility] ,#### CMP, ADDONUAPLUS, CBC, ESR ####[place] [address] [address] Hyaline casts [#/area] in Ur ine sediment by Automated countOrdered By: Romel Davis on 07-03-2024 Hyaline casts Auto (Urine sed) [#/Area] 9-19 [LPF] High 0-8 [facility] Ketones [Presence] in Urine by Test stripOrdered By: Romel Davis on 07-03-2024 Ketones Ql (U) Trace High Negative [facility] Comment on above: Order Comment: Name Collection Type:: Clean-Voided Midstream Performed By: #### C 4, CH50, C3 ####[facility] ,#### CMP, ADDONUAPLUS, CBC, ESR ####[address] Leukocyte esterase [Presence ] in Urine by Test stripOrdered By: Romel Davis on 07-03-2024 Leukocyte esterase Test strip Ql (U) Negative Normal Negative [facility] Comment on above: Order Comment: Name Collection Type:: Clean-Voided Midstream Performed By: #### C 4, CH50, C3 ####[facility] ,#### CMP, ADDONUAPLUS, CBC, ESR ####[address] Leukocytes [#/area] in Urine sediment by Automated countOrdered By: Romel Davis on 07-03-2024 WBC Auto (Urine sed) [#/Area] 1-2 [HPF] 0-4 [facility] Leukocytes [#/volume] correc nat for nucleated erythrocytes in Blood by Automated counOrdered By: Romel Davis on 07-03-2024 WBC corrected for nucl RBC Auto (Bld) [#/Vol] 5.5 10*3/uL 4.1-10.5 [facility] Leukocytes [#/volume] in Blo od by Automated countOrdered By: Romel Davis on 07-03-2024 WBC (Bld) [#/Vol] 5.5 10*3/uL Normal 4.1-10.5 [facility] Comment on above: Performed By: #### C 4, CH50, C3 ####[facility] ,#### CMP, ADDONUAPLUS, CBC, ESR ####[address] Lymphocytes [#/volume] in Bl ood by Automated countOrdered By: Romel Davis on 07-03-2024 Lymphocytes (Bld) [#/Vol] 0.8 10*3/uL Low 1.00-4.8 [facility] Comment on above: Performed By: #### C 4, CH50, C3 ####[facility] ,#### CMP, ADDONUAPLUS, CBC, ESR ####[address] Lymphocytes/100 leukocytes i n Blood by Automated countOrdered By: Romel Davis on 07-03-2024 Lymphocytes/100 WBC (Bld) 14.0 % Normal . [facility] Comment on above: Performed By: #### C 4, CH50, C3 ####[facility] ,#### CMP, ADDONUAPLUS, CBC, ESR ####[address] MCH [Entitic mass] by Automa nat countOrdered By: Romel Davis on 07-03-2024 MCH (RBC) [Entitic mass] 30.0 pg Normal 27.5-35.2 [facility] Comment on above: Performed By: #### C 4, CH50, C3 ####[facility] ,#### CMP, ADDONUAPLUS, CBC, ESR ####[address] MCHC Auto (RBC) [Mass/Vol]Or dered By: Romel Mendezrow on 07-03-2024 MCHC (RBC) [Mass/Vol] 34.2 g/dL 32.5-35.6 [facility] MCV [Entitic volume] by Auto mated countOrdered By: Romel Davis on 07-03-2024 MCV (RBC) [Entitic vol] 87.5 fL Normal 83.5-101 [facility] Comment on above: Performed By: #### C 4, CH50, C3 ####[facility] ,#### CMP, ADDONUAPLUS, CBC, ESR ####[facility] [id number] Mucus [Presence] in Urine by AutomatedOrdered By: Romel Ryan on 07-03-2024 Mucus Auto Ql (U) 1+ [LPF] Abnormal [facility] Neutrophils [#/volume] in Bl ood by Automated countOrdered By: Romel Mendezrow on 07-03-2024 Neutrophils (Bld) [#/Vol] 4.2 10*3/uL Normal 1.8-7.7 [facility] Comment on above: Performed By: #### C 4, CH50, C3 ####[facility] ,#### CMP, ADDONUAPLUS, CBC, ESR ####[facility] [id number] Nitrite Test strip Ql (U)Ord ered By: Romel Davis on 07-03-2024 Nitrite Ql (U) Negative Negative [facility] No Panel InformationOrdered By: Romel Davis on 07-03-2024 Estimated GFR (CKD-EPI) > 60.0 mL/Min [facility] Creatinine Clearance (Chem N/A [facility] Total Complement (CH50) 56 U/mL >41 [facility] Comment on above: Age Male Female [...] determine out of range values.Performed at: - [facility] [id number] Director: Richy Ardon PhD, Phone: [phone] Nucleated erythrocytes [Pres ence] in Blood by Automated countOrdered By: Romelsera Davis on 07-03-2024 Nucleated RBC Auto Ql (Bld) 0.1 /100{WBC} 0-0.5 [facility] Platelet mean volume [Entiti c volume] in Blood by Automated countOrdered By: Romel Ryan on 07-03-2024 Platelet mean volume (Bld) [Entitic vol] 8.2 fL Normal 6.6-10.1 [facility] Comment on above: Performed By: #### C 4, CH50, C3 ####[facility] ,#### CMP, ADDONUAPLUS, CBC, ESR ####[address] Platelets [#/volume] in Bloo d by Automated countOrdered By: Romel Davis on 07-03-2024 Platelets (Bld) [#/Vol] 160 10*3/uL Normal 150-450 [facility] Comment on above: Performed By: #### C 4, CH50, C3 ####[facility] ,#### CMP, ADDONUAPLUS, CBC, ESR ####[address] Potassium [Moles/volume] in Serum or PlasmaOrdered By: Romel Davis on 07-03-2024 Potassium [Moles/Vol] 4.0 mmol/L Normal 3.5-5.1 [facility] Comment on above: Performed By: #### C 4, CH50, C3 ####[facility] ,#### CMP, ADDONUAPLUS, CBC, ESR ####[place] [address] [place] [id number] [facility] Protein Test strip (U) [Mass /Vol]Ordered By: Romel Davis on 07-03-2024 Protein (U) [Mass/Vol] Trace mg/dL High Negative [facility] Protein [Mass/volume] in Ser um or PlasmaOrdered By: Romel Davis on 07-03-2024 Protein [Mass/Vol] 6.3 g/dL Low 6.4-8.9 [facility] Comment on above: Performed By: #### C 4, CH50, C3 ####[facility] ,#### CMP, ADDONUAPLUS, CBC, ESR ####[address] Serum globulin measurement b y calculation (mass/volume)Ordered By: Romel Davis on 07-03-2024 Globulin (S) [Mass/Vol] 2.1 g/dL Normal [facility] Comment on above: Performed By: #### C 4, CH50, C3 ####[facility] ,#### CMP, ADDONUAPLUS, CBC, ESR ####[address] Serum or plasma albumin/glob ulin mass ratioOrdered By: Romel Davis on 07-03-2024 Albumin/Globulin [Mass ratio] 2.0 {ratio} Normal [facility] Comment on above: Performed By: #### C 4, CH50, C3 ####[facility] ,#### CMP, ADDONUAPLUS, CBC, ESR ####[address] Serum or plasma anion gap de terminationOrdered By: Romel Davis on 07-03-2024 Anion gap [Moles/Vol] 13.4 mmol/L Normal 6.0-15.0 [facility] Comment on above: Performed By: #### C 4, CH50, C3 ####[facility] ,#### CMP, ADDONUAPLUS, CBC, ESR ####[address] Serum or plasma complement C 3 measurement (mass/volume)Ordered By: Romel Davis on 07-03-2024 Complement C3 [Mass/Vol] 127 mg/dL 82-167 [facility] Comment on above: Performed at: [employer] [facility] [employer] [address] [id number] Director: Richy Ardon PhD, Phone: [phone] Serum or plasma complement C 4 measurement (mass/volume)Ordered By: Romel Davis on 07-03-2024 Complement C4 [Mass/Vol] 15 mg/dL 12-38 [facility] Comment on above: Performed at: [employer] [address] [id number] Director: Richy Ardon PhD, Phone: [phone] Sodium [Moles/volume] in Ser um or PlasmaOrdered By: Romel Davis on 07-03-2024 Sodium [Moles/Vol] 137 mmol/L Normal 136-145 [facility] Comment on above: Performed By: #### C 4, CH50, C3 ####[facility] ,#### CMP, ADDONUAPLUS, CBC, ESR ####[facility] [id number] Specific gravity Test strip (U) [Rel density]Ordered By: Romel Davis on 07-03-2024 Specific gravity (U) [Rel density] 1.027 1.001-1.03 0 [facility] Urea nitrogen [Mass/volume] in Serum or PlasmaOrdered By: Romel Davis on 07-03-2024 Urea nitrogen [Mass/Vol] 17 mg/dL Normal 7-25 [facility] Comment on above: Performed By: #### C 4, CH50, C3 ####[facility] ,#### CMP, ADDONUAPLUS, CBC, ESR ####[place] [address] [place] [id number] [facility] Urine appearanceOrdered By: Romel Davis on 07-03-2024 Appearance (U) Clear Normal Clear [facility] Comment on above: Order Comment: Name Collection Type:: Clean-Voided Midstream Performed By: #### C 4, CH50, C3 ####[facility] ,#### CMP, ADDONUAPLUS, CBC, ESR ####[facility] [id number] Urobilinogen Test strip (U) [Mass/Vol]Ordered By: Romelsera Davis on 07-03-2024 Urobilinogen (U) [Mass/Vol] 2 mg/dL High Normal [facility] pH of Urine by Test stripOrd ered By: Romel Mendezrow on 07-03-2024 pH (U) 6.5 [pH] Normal 5.0-9.0 [facility] Comment on above: Order Comment: Name Collection Type:: Clean-Voided Midstream Performed By: #### C 4, CH50, C3 ####[facility] ,#### CMP, ADDONUAPLUS, CBC, ESR ####[place] [id number] [address] Vivek 05-30-2024 L Specimen: [id number] Re ceived: 06/04/24 Status: SOUT Req Num: [id number] Spec Type: Cytology Subm Dr: Carlos Eden DO Tissues: A FNA SLIDES NOPATH (RT THYROID) Procedures: Cyto Int and Re, PAPSTN/11 Age/ Patient Sex Location Account Attending Physician Valentin Torre 69/M [place] [id number] Carlos Eden DO SPEC NUM: [id number] RECD: 06/04/24 STATUS: SOUT REQ NUM: [id number] KATHRYN: 05/30/24- SUBM DR: Carlos Eden DO ENTERED: 06/04/[address]: SPEC TYPE: Cytology DEPT: CNG ENTERED BY: [id number] RECV BY: [id number] ORDERED: Cyto Int and Re, PAPSTN/11 ORDERED: Cyto Int and Re, PAPSTN/11 Pathological Diagnosis Thyroid nodule, right lobe, FNA: - Benign follicular nodule - [place] diagnostic category II Clinical Information Right Thyroid Nodule Gross Description Received fixed in Cytolyt is <1 ml pale pink cloudy fluid for cytology said to have been obtained as Right Thyroid Nodule . ThinPrep preparations are prepared for microscopic examination. Also received are 10 spray fixed smeared slides to be stained pap and a Veracyte vial stored at -20 for microscopic examination.(CC/wv) CPT Codes 68388 Specimen: [id number] Received: 06/04/24 Status: MAHSA Reyez Num: [id number] Spec Type: Cytology Subm Dr: Carlos Eden DO Tissues: A FNA SLIDES NOPATH (RT THYROID) Procedures: Cyto Int and Re, PAPSTN/11 Patient: Valentin Torre [id number] (Continued) Signed (signature on file) Shaggy Vega MD 06/05/24 1500 Normal [facility] Urology Office/Clinic Noteon 05-17-2024 Urology [...] Electrolyte panel 10/20/23 - wnl. [facility] 01/11/24 [facility] [place] Kidneys are partially obscured, R>L. Group [...] Contact Information BILL FERRERA, LEAH Feliz, URL [address] [place] [address] Additional Instructions: 6 mos f/u with KUB with PRW 09/03/23 Patient Education Benign Prostatic Hyperplasia Documentation recorded by the scribtray Stanley accurately reflects the services(s) I performed and decisions made by me. Authenticated by Leah Roa PA-C on 05/17/2024 12:30:00. ITeena, personally scribed for MATT Holbrook on 05/15/2024 [...] virus vaccine, inactivated 12/05/2022 Recorded SARS-CoV-2 (COVID-19) [id number] 10/08/2022 Recorded influenza virus vaccine, inac (more content not included)... [facility] Comment on above: Result Comment: Elec tronically Signed By: LEAH ROA PA-C\.br\Date and Time Signed: 05/17/24 12:31 EDT\.br\Electronically Co-Signed By: Teena Stanley\.br\Date and Time Co-Signed: 05/15/24 15:06 EDT [place] 05-16-2024 Screens [id number] [facility] Screens [id number] [facility] Ambulatory Visit Summaryon 0 05-15-2024 [...] Zac De Oliveira Where: [facility] Patient Educationon 05-15-20 24 Patient Education Urology Benign Prostatic Hyperplasia Benign [...] Follow these instructions at home: ? Take edxe-uoj-mnhpaay and prescription medicines only as told by [...] the medicine (more content not included)... Normal [facility] [place] 03-21-2024 Screens [id number] Normal [facility] Patient Educationon 03-20-20 24 Patient Education Urinary [...] ? For women, using a medical office technologist to prevent urine leaks. This is a [...] ? Consider (more content not included)... Normal [facility] Urology Office/Clinic Noteon 03-20-2024 Urology Office/Clinic Note [...] with voice recognition artificial intelligence software, specifically [employer], [employer] and or [employer]. Substitutions may have occurred due to the [...] Daily, # 30 cap(s), Refills(s) 11, Pharmacy: [facility]/pharmacy #[id number], 173, cm, 03/20/24 12:27:00 EDT, Height/Length [...] voids, voiding maneuvers, avoid bladder irritants. Ordered: [id number] Measure Post Void residual urine and/or bladder [...] Urnls Dip Stick Auto w/o Microscopy POC 91467 3. Kidney stones (N20.0: Calculus of kidney) Electrolyte panel 10/20/23 - wnl. KUB 01/11/24 [facility] [place] Kidneys are partially obscured, R>L. Group [...] malignant neoplasm of prostate) March 2023 - . check by PCP Dr. Sutton Follow-up With When Contact Information FRANCIS Jimenez APRN, Daria Lechuga, FAM, UR (more content not included)... Normal [facility] Comment on above: Result Comment: Elec tronically Signed By: FRANCIS Jimenez APRN, Daria Lechuga\.br\Date and Time Signed: 03/20/24 13:12 EDT Alanine aminotransferase [En zymatic activity/volume] in Serum or PlasmaOrdered By: Romel Davis on 03-13-2024 ALT [Catalytic activity/Vol] 22 U/L Normal 7-52 [facility] Comment on above: Performed By: #### E SR, DRISS, CMP, CBC ####[facility] [id number] [place] [id number] [facility]#### C4, CH50, C3 ####[facility] , Albumin [Mass/volume] in Ser um or Plasma by Bromocresol green (BCG) dye binding methoOrdered By: Romel Davis on 03-13-2024 Albumin BCG dye [Mass/Vol] 3.7 g/dL 3.5-5.7 [facility] Alkaline phosphatase [Enzyma tic activity/volume] in Serum or PlasmaOrdered By: Romel Davis on 03-13-2024 ALP [Catalytic activity/Vol] 79 U/L Normal 34-104 [facility] Comment on above: Result Comment: PERF ORMED BY: [facility] [place] [address] PATHOLOGIST COMPUTER GAME TESTER LOMAN ALBARRAN M.D. Performed By: #### E SR, ADDONUAPLUS, CMP, CBC ####[address]#### C4, CH50, C3 ####[facility] , Aspartate aminotransferase [ Enzymatic activity/volume] in Serum or PlasmaOrdered By: Romel Davis on 03-13-2024 AST [Catalytic activity/Vol] 17 U/L Normal 13-39 [facility] Comment on above: Performed By: #### E SR, ADDONUAPLUS, CMP, CBC ####[address]#### C4, CH50, C3 ####[facility] , Automated basophil %Ordered By: Romel Davis on 03-13-2024 Basophils/100 WBC (Bld) 0.5 % Normal . [facility] Comment on above: Performed By: #### E SR, ADDONUAPLUS, CMP, CBC ####[place] [address] [place]#### C4, CH50, C3 ####[facility] , Automated basophil countOrde red By: Romel Davis on 03-13-2024 Basophils (Bld) [#/Vol] 0.0 10*3/uL Normal 0.0-0.2 [facility] Comment on above: Performed By: #### E SR, ADDONUAPLUS, CMP, CBC ####[place] [address] [place]#### C4, CH50, C3 ####[facility] , Automated blood monocyte cou ntOrdered By: Romel Davis on 03-13-2024 Monocytes (Bld) [#/Vol] 0.7 10*3/uL Normal 0.0-0.8 [facility] Comment on above: Performed By: #### E SR, ADDONUAPLUS, CMP, CBC ####[place] [address] [place] [address] [place]#### C4, CH50, C3 ####[facility] , Automated eosinophil %Ordere d By: Romel Davis on 03-13-2024 Eosinophils/100 WBC (Bld) 1.3 % Normal . [facility] Comment on above: Performed By: #### E SR, ADDONUAPLUS, CMP, CBC ####[place] [address] [place]#### C4, CH50, C3 ####[facility] , Automated eosinophil countOr dered By: Romel Davis on 03-13-2024 Eosinophils (Bld) [#/Vol] 0.1 10*3/uL Normal 0.0-0.45 [facility] Comment on above: Performed By: #### E SR, ADDONUAPLUS, CMP, CBC ####[place] [address] [place]#### C4, CH50, C3 ####[facility] , Automated erythrocytes count in urine sediment (number/area)Ordered By: Romel Mendezrow on 03-13-2024 RBC Auto (Urine sed) [#/Area] 1-2 [HPF] 0-4 [facility] Automated leukocytes count i n urine sediment (number/area)Ordered By: Romel Mendezrow on 03-13-2024 WBC Auto (Urine sed) [#/Area] 0-1 [HPF] 0-4 [facility] Automated monocyte %Ordered By: Romel Mendezrow on 03-13-2024 Monocytes/100 WBC (Bld) 10.7 % Normal . [facility] Comment on above: Performed By: #### E SR, ADDONUAPLUS, CMP, CBC ####[place] [address] [place]#### C4, CH50, C3 ####[facility] , Automated neutrophil %Ordere d By: Romel Davis on 03-13-2024 Neutrophils/100 WBC (Bld) 75.4 % Normal . [facility] Comment on above: Performed By: #### E SR, ADDONFARHANA, CMP, CBC ####[address]#### C4, CH50, C3 ####[facility] , Automated urine color determ inationOrdered By: Romel Davis on 03-13-2024 Color (U) Dark yellow Critically abnormal Yellow [facility] Comment on above: Order Comment: Name Collection Type:: Clean-Voided Midstream Performed By: #### E SR, DRISS, CMP, CBC ####[address]#### C4, CH50, C3 ####[facility] , Bilirubin Test strip Ql (U)O rdered By: Romel Davis on 03-13-2024 Bilirubin Ql (U) Negative Negative [facility] Bilirubin.total [Mass/volume ] in Serum or PlasmaOrdered By: Romel Davis on 03-13-2024 Bilirubin [Mass/Vol] 0.6 mg/dL Normal 0.3-1.0 [facility] Comment on above: Performed By: #### E SR, ADDONUAPLUS, CMP, CBC ####[place] [address] [place]#### C4, CH50, C3 ####[facility] , Calcium [Mass/volume] in Ser um or PlasmaOrdered By: Romel Mendezrow on 03-13-2024 Calcium [Mass/Vol] 8.8 mg/dL Normal 8.6-10.3 [facility] Comment on above: Performed By: #### E SR, ADDONUAPLUS, CMP, CBC ####[place] [address] [place]#### C4, CH50, C3 ####[facility] , Carbon dioxide, total [Moles /volume] in Serum or PlasmaOrdered By: Romel Davis on 03-13-2024 CO2 [Moles/Vol] 25.0 mmol/L Normal 21.0-31.0 [facility] Comment on above: Performed By: #### E SR, ADDONUAPLUS, CMP, CBC ####[address]#### C4, CH50, C3 ####[facility] , Chloride [Moles/volume] in S ace or PlasmaOrdered By: Romel Davis on 03-13-2024 Chloride [Moles/Vol] 105 mmol/L Normal 98-107 [facility] Comment on above: Performed By: #### E SR, ADDONUAPLUS, CMP, CBC ####[address]#### C4, CH50, C3 ####[facility] , Complement C3on 03-13-2024 Complement C3 153 mg/dL Normal 82-167 [facility] Comment on above: Result Comment: Perf ormed at: - [facility] [place] [id number] Materials Planning Analyst: Richy Ardon PhD, Phone: [phone] Performed By: #### E SR, ADDONUAPLUS, CMP, CBC ####[address]#### C4, CH50, C3 ####[facility] , Complement C4on 03-13-2024 Complement C4 24 mg/dL Normal 12-38 [facility] Comment on above: Result Comment: PERF ORMED BY: [facility] [address] [place] [address] PATHOLOGIST COMPUTER GAME TESTER OLMAN ALBARRAN M.D. Performed By: #### E SR, ADDONUAPLUS, CMP, CBC ####[address]#### C4, CH50, C3 ####[facility] , Complement Total (CH50)on Complement Total (CH50) >60 Normal >41 [facility] Comment on above: Result Comment: [...] determine out of range values. Performed at: [facility] [address] [id number] Materials Planning Analyst: Richy Ardon PhD, Phone: [phone] PERFORMED BY: [place] [address] PATHOLOGIST COMPUTER GAME TESTER OLMAN ALBARRAN M.D. Performed By: #### E SR, ADDONUAPLUS, CMP, CBC ####[address]#### C4, CH50, C3 ####[facility] , Complete Blood Count Auto Di ffon 03-13-2024 Mean Corpuscular HGB Conc 33.9 g/dL Normal 32.5-35.6 [facility] Comment on above: Performed By: #### E SR, ADDONUAPLUS, CMP, CBC ####[address]#### C4, CH50, C3 ####[facility] , NRBC% 0.1 /100{WBC} Normal 0-0.5 [facility] Comment on above: Performed By: #### E SR, ADDONUAPLUS, CMP, CBC ####[address]#### C4, CH50, C3 ####[facility] , Comprehensive Metabolic Pane vivek 03-13-2024 Albumin [Mass/Vol] 3.7 g/dL Normal 3.5-5.7 [facility] Comment on above: Performed By: #### E SR, ADDONUAPLUS, CMP, CBC ####[place] [address] [place]#### C4, CH50, C3 ####[facility] , GFR/1.73 sq M.predicted MDRD (S/P/Bld) [Vol rate/Area] mL/min/{1.73_m2} Normal [facility] Comment on above: Performed By: #### E SR, ADDONUAPLUS, CMP, CBC ####[address]#### C4, CH50, C3 ####[facility] , Creatinine [Mass/volume] in Serum or PlasmaOrdered By: Romel Davis on 03-13-2024 Creatinine [Mass/Vol] 0.94 mg/dL Normal 0.70-1.30 [facility] Comment on above: Performed By: #### E SR, ADDONUAPLUS, CMP, CBC ####[address]#### C4, CH50, C3 ####[facility] , Dipstick and Microscopicon 0 03-13-2024 Appearance (U) Clear Normal Clear [facility] Comment on above: Order Comment: Name Collection Type:: Clean-Voided Midstream Performed By: #### E SR, ADDONUAPLUS, CMP, CBC ####[place] [address] [place]#### C4, CH50, C3 ####[facility] , Bacteria,Urine None Seen Normal None Seen [facility] Comment on above: Order Comment: Name Collection Type:: Clean-Voided Midstream Performed By: #### E SR, ADDONUAPLUS, CMP, CBC ####[place] [address] [place]#### C4, CH50, C3 ####[facility] , Bilirubin,Urine Negative Normal Negative [facility] Comment on above: Order Comment: Name Collection Type:: Clean-Voided Midstream Performed By: #### E SR, ADDONUAPLUS, CMP, CBC ####[address]#### C4, CH50, C3 ####[facility] , Glucose Ql (U) Normal Normal Normal [facility] Comment on above: Order Comment: Name Collection Type:: Clean-Voided Midstream Performed By: #### E SR, ADDONUAPLUS, CMP, CBC ####[address]#### C4, CH50, C3 ####[facility] , Hyaline Casts,Urine 0-8 Normal 0-8 [facility] Comment on above: Order Comment: Name Collection Type:: Clean-Voided Midstream Result Comment: PERF ORMED BY: [facility] [address] [place] [address] PATHOLOGIST COMPUTER GAME TESTER OLMAN ALBARRAN M.D. Performed By: #### E SR, ADDONUAPLUS, CMP, CBC ####[address]#### C4, CH50, C3 ####[facility] , Ketones Ql (U) Trace High Negative [facility] Comment on above: Order Comment: Name Collection Type:: Clean-Voided Midstream Performed By: #### E SR, ADDONUAPLUS, CMP, CBC ####[address]#### C4, CH50, C3 ####[facility] , Leukocyte esterase Test strip Ql (U) 1+ High Negative [facility] Comment on above: Order Comment: Name Collection Type:: Clean-Voided Midstream Performed By: #### E SR, ADDONUAPLUS, CMP, CBC ####[address] [place] [address] [place]#### C4, CH50, C3 ####[facility] , Nitrite,Urine Negative Normal Negative [facility] Comment on above: Order Comment: Name Collection Type:: Clean-Voided Midstream Performed By: #### E SR, ADDONUAPLUS, CMP, CBC ####[address]#### C4, CH50, C3 ####[facility] , Occult Blood,Urine Negative Normal Negative [facility] Comment on above: Order Comment: Name Collection Type:: Clean-Voided Midstream Performed By: #### E SR, ADDONUAPLUS, CMP, CBC ####[address]#### C4, CH50, C3 ####[facility] , Protein,Urine Negative Normal Negative [facility] Comment on above: Order Comment: Name Collection Type:: Clean-Voided Midstream Performed By: #### E SR, ADDONUAPLUS, CMP, CBC ####[address]#### C4, CH50, C3 ####[facility] , RBC,Urine 1-2 Normal 0-4 [facility] Comment on above: Order Comment: Name Collection Type:: Clean-Voided Midstream Performed By: #### E SR, ADDONUAPLUS, CMP, CBC ####[address]#### C4, CH50, C3 ####[facility] , Specificy Moffit,Urine 1.024 Normal 1.001-1.03 0 [facility] Comment on above: Order Comment: Name Collection Type:: Clean-Voided Midstream Performed By: #### E SR, ADDONUAPLUS, CMP, CBC ####[address]#### C4, CH50, C3 ####[facility] , Squamous Epithelial Cell,Urine None Seen Normal 0-2 [facility] Comment on above: Order Comment: Name Collection Type:: Clean-Voided Midstream Performed By: #### E SR, ADDONUAPLUS, CMP, CBC ####[address]#### C4, CH50, C3 ####[facility] , Urobilinogen,Urine Normal Normal Normal [facility] Comment on above: Order Comment: Name Collection Type:: Clean-Voided Midstream Performed By: #### E SR, ADDONUAPLUS, CMP, CBC ####[address]#### C4, CH50, C3 ####[facility] , WBC LM.HPF (Urine sed) [#/Area] 0 /[HPF] Normal 0-4 [facility] Comment on above: Order Comment: Name Collection Type:: Clean-Voided Midstream Performed By: #### E SR, ADDONUAPLUS, CMP, CBC ####[address]#### C4, CH50, C3 ####[facility] , Erythrocyte Sedimentation Ra bruno 03-13-2024 ESR (Bld) [Velocity] 29 mm/h High 0-19 [facility] Comment on above: Result Comment: PERF ORMED BY: [facility] [address] [facility] [place] [address] PATHOLOGIST COMPUTER GAME TESTER OLMAN ALBARRAN M.D. Performed By: #### E SR, ADDONUAPLUS, CMP, CBC ####[address]#### C4, CH50, C3 ####[facility] , Erythrocyte distribution wid th [Ratio] by Automated countOrdered By: Romel Davis on 03-13-2024 Erythrocyte distribution width (RBC) [Ratio] 14.8 % Normal 12.0-14.8 [facility] Comment on above: Performed By: #### E , REINA NAQVI, CBC ####[facility]#### C4, CH50, C3 ####[facility] , Erythrocyte sedimentation ra te by Photometric methodOrdered By: Romel Davis on 03-13-2024 ESR Photometric method (Bld) [Velocity] 29 mm/hr High 0-19 [facility] Erythrocytes [#/volume] in B lood by Automated countOrdered By: Romel Davis on 03-13-2024 RBC (Bld) [#/Vol] 4.14 10*6/uL Normal 3.90-5.60 [facility] Comment on above: Performed By: #### E , REINA NAQVI, CBC ####[facility] [place] [address] [place]#### C4, CH50, C3 ####[facility] , Glucose [Mass/volume] in Ser um or PlasmaOrdered By: Romel Davis on 03-13-2024 Glucose [Mass/Vol] 124 mg/dL High 70-100 [facility] Comment on above: ADA recommended refe rence rangeRandom Glucose Reference Range is dependent on time and content of last meal. Glucose of more than 200 mg/dL in a nonstressed, ambulatory subject supports the diagnosis of Diabetes Mellitus. Result Comment: [place] om Glucose Reference Range is dependent on time and content of last meal. Glucose of more than 200 mg/dL in a nonstressed, ambulatory subject supports the diagnosis of Diabetes Mellitus. ADA recommended reference range Performed By: #### E SR, REINA NAQVI, CBC ####[facility] [place] [address] [place]#### C4, CH50, C3 ####[facility] , Hematocrit [Volume Fraction] of Blood by Automated countOrdered By: Romel Davis on 03-13-2024 Hematocrit (Bld) [Volume fraction] 36.6 % Low 38.8-50.0 [facility] Comment on above: Performed By: #### E SR, ADDONUAGEMMA, CMP, CBC ####[facility] [place] [address] [place]#### C4, CH50, C3 ####[facility] , Hemoglobin [Mass/volume] in BloodOrdered By: Romel Davis on 03-13-2024 Hemoglobin (Bld) [Mass/Vol] 12.4 g/dL Low 13.0-17.0 [facility] Comment on above: Performed By: #### E SR, ADDONUAPLUS, CMP, CBC ####[place] [address] [address]#### C4, CH50, C3 ####[facility] , Ketones Auto test strip (U) [Mass/Vol]Ordered By: Romel Davis on 03-13-2024 Ketones (U) [Mass/Vol] Trace High Negative [facility] - UrinalysisOrder ed By: Romel Davis on 03-13-2024 Hyaline casts LM Ql (Urine sed) 0-8 [LPF] 0-8 [facility] Leukocytes [#/volume] correc nat for nucleated erythrocytes in Blood by Automated counOrdered By: Romel Davis on 03-13-2024 WBC corrected for nucl RBC Auto (Bld) [#/Vol] 6.5 10*3/uL 4.1-10.5 [facility] Leukocytes [#/volume] in Blo od by Automated countOrdered By: Romel Davis on 03-13-2024 WBC (Bld) [#/Vol] 6.5 10*3/uL Normal 4.1-10.5 [facility] Comment on above: Performed By: #### E SR, ADDONUAPLUS, CMP, CBC ####[facility] [place] [address] [place]#### C4, CH50, C3 ####[facility] , Lymphocytes [#/volume] in Bl ood by Automated countOrdered By: Romel Ryan on 03-13-2024 Lymphocytes (Bld) [#/Vol] 0.8 10*3/uL Low 1.00-4.8 [facility] Comment on above: Performed By: #### E SR, ADDONUAPLUS, CMP, CBC ####[place] [address] [place]#### C4, CH50, C3 ####[facility] , Lymphocytes/100 leukocytes i n Blood by Automated countOrdered By: Romelsera Davis on 03-13-2024 Lymphocytes/100 WBC (Bld) 12.1 % Normal . [facility] Comment on above: Performed By: #### E SR, ADDONFARHANA, CMP, CBC ####[address]#### C4, CH50, C3 ####[facility] , MCH [Entitic mass] by Automa nat countOrdered By: Romelsera Davis on 03-13-2024 MCH (RBC) [Entitic mass] 30.0 pg Normal 27.5-35.2 [facility] Comment on above: Performed By: #### E SR, MAGYONFARHANA, CMP, CBC ####[address]#### C4, CH50, C3 ####[facility] , MCHC Auto (RBC) [Mass/Vol]Or dered By: Romel Davis on 03-13-2024 MCHC (RBC) [Mass/Vol] 33.9 g/dL 32.5-35.6 [facility] MCV [Entitic volume] by Auto mated countOrdered By: Romel Davis on 03-13-2024 MCV (RBC) [Entitic vol] 88.3 fL Normal 83.5-101 [facility] Comment on above: Performed By: #### E SR, ADDONUAPLUS, CMP, CBC ####[place] [address] [place]#### C4, CH50, C3 ####[facility] , Neutrophils [#/volume] in Bl ood by Automated countOrdered By: Romel Davis on 03-13-2024 Neutrophils (Bld) [#/Vol] 4.9 10*3/uL Normal 1.8-7.7 [facility] Comment on above: Performed By: #### E SR, DRISS, CMP, CBC ####[facility] [id number]#### C4, CH50, C3 ####[facility] , Nitrite Test strip Ql (U)Ord ered By: Romel Davis on 03-13-2024 Nitrite Ql (U) Negative Negative [facility] No Panel InformationOrdered By: Romel Davis on 03-13-2024 Estimated GFR (CKD-EPI) > 60.0 mL/Min [facility] Creatinine Clearance (Chem N/A [facility] Total Complement (CH50) >60 U/mL >41 [facility] Comment on above: Age Male Female [...] determine out of range values.Performed at: - [facility] [id number] Director: Richy Ardon PhD, Phone: [phone] Nucleated erythrocytes [Pres ence] in Blood by Automated countOrdered By: Romel Davis on 03-13-2024 Nucleated RBC Auto Ql (Bld) 0.1 /100{WBC} 0-0.5 [facility] Platelet mean volume [Entiti c volume] in Blood by Automated countOrdered By: Romel Davis on 03-13-2024 Platelet mean volume (Bld) [Entitic vol] 8.0 fL Normal 6.6-10.1 [facility] Comment on above: Performed By: #### E SR, DRISS, CMP, CBC ####[place] [address] [place] [address] [place]#### C4, CH50, C3 ####[facility] , Platelets [#/volume] in Bloo d by Automated countOrdered By: Romel Ryan on 03-13-2024 Platelets (Bld) [#/Vol] 258 10*3/uL Normal 150-450 [facility] Comment on above: Performed By: #### E SR, ADDKYLE, CMP, CBC ####[place] [address] [place]#### C4, CH50, C3 ####[facility] , Potassium [Moles/volume] in Serum or PlasmaOrdered By: Romel Davis on 03-13-2024 Potassium [Moles/Vol] 4.3 mmol/L Normal 3.5-5.1 [facility] Comment on above: Performed By: #### E SR, DRISS, CMP, CBC ####[place] [address] [place]#### C4, CH50, C3 ####[facility] , Protein Auto test strip (U) [Mass/Vol]Ordered By: Romel Davis on 03-13-2024 Protein (U) [Mass/Vol] Negative Negative [facility] Protein [Mass/volume] in Ser um or PlasmaOrdered By: Romel Davis on 03-13-2024 Protein [Mass/Vol] 6.0 g/dL Low 6.4-8.9 [facility] Comment on above: Performed By: #### E SR, MAGYONFARHANA, CMP, CBC ####[place] [address] [place] [address] [place]#### C4, CH50, C3 ####[facility] , Serum globulin measurement b y calculation (mass/volume)Ordered By: Romel Davis on 03-13-2024 Globulin (S) [Mass/Vol] 2.3 g/dL [facility] Comment on above: Performed By: #### E SR, ADDONUAPLUS, CMP, CBC ####[facility]#### C4, CH50, C3 ####[facility] , Serum or plasma albumin/glob ulin mass ratioOrdered By: Romel Davis on 03-13-2024 Albumin/Globulin [Mass ratio] 1.6 {ratio} [facility] Comment on above: Performed By: #### E SR, ADDONUAPLUS, CMP, CBC ####[place] [address] [address]#### C4, CH50, C3 ####[facility] , Serum or plasma anion gap de terminationOrdered By: Romel Davis on 03-13-2024 Anion gap [Moles/Vol] 11.3 mmol/L Normal 6.0-15.0 [facility] Comment on above: Performed By: #### E SR, ADDONUAPLUS, CMP, CBC ####[place] [address] [address]#### C4, CH50, C3 ####[facility] , Serum or plasma complement C 3 measurement (mass/volume)Ordered By: Romel Davis on 03-13-2024 Complement C3 [Mass/Vol] 153 mg/dL 82-167 [facility] Comment on above: Performed at: [place] [id number] Director: Richy Ardon PhD, Phone: [phone] Serum or plasma complement C 4 measurement (mass/volume)Ordered By: Romel Davis on 03-13-2024 Complement C4 [Mass/Vol] 24 mg/dL 12-38 [facility] Sodium [Moles/volume] in Ser um or PlasmaOrdered By: Romel Davis on 03-13-2024 Sodium [Moles/Vol] 137 mmol/L Normal 136-145 [facility] Comment on above: Performed By: #### E SR, REINA NAQVI, CBC ####[facility] [place] [address] [place]#### C4, CH50, C3 ####[facility] , Specific gravity Auto test s trip (U) [Rel density]Ordered By: Romel Davis on 03-13-2024 Specific gravity (U) [Rel density] 1.024 1.001-1.03 0 [facility] Squamous epithelial cells de tection in urine sediment by light microscopyOrdered By: Romel Davis on 03-13-2024 Epithelial cells.squamous LM Ql (Urine sed) None seen [HPF] 0-2 [facility] Urea nitrogen [Mass/volume] in Serum or PlasmaOrdered By: Romel Davis on 03-13-2024 Urea nitrogen [Mass/Vol] 26 mg/dL High 7-25 [facility] Comment on above: Performed By: #### E , REINA NAQVI, CBC ####[facility] [place] [address] [place]#### C4, CH50, C3 ####[facility] , Urine bacteria detection by automated methodOrdered By: Romel Davis on 03-13-2024 Bacteria Auto Ql (U) None seen None Seen [facility] Urine clarity by refractomet ry automatedOrdered By: Romel Davis on 03-13-2024 Clarity Refractometry automated (U) Clear Clear [facility] Urine glucose measurement by automated test strip (mass/volume)Ordered By: Romel Davis on 03-13-2024 Glucose Auto test strip (U) [Mass/Vol] Normal mg/dL Normal [facility] Urine hemoglobin detection b y automated test stripOrdered By: Romel Davis on 03-13-2024 Hemoglobin Auto test strip Ql (U) Negative Negative [facility] Urine leukocyte esterase det ection by automated test stripOrdered By: Romel Davis on 03-13-2024 Leukocyte esterase Auto test strip Ql (U) 1+ High Negative [facility] Urine pH measurement by auto mated test stripOrdered By: Romel Davis on 03-13-2024 pH (U) 7.0 [pH] Normal 5.0-9.0 [facility] Comment on above: Order Comment: Name Collection Type:: Clean-Voided Midstream Performed By: #### E SR, ADDONUAPLUS, CMP, CBC ####[facility] Tib[address]#### C4, CH50, C3 ####[facility] , Urobilinogen Auto test strip (U) [Mass/Vol]Ordered By: Romel Davis on 03-13-2024 Urobilinogen (U) [Mass/Vol] Normal mg/dL Normal [facility] MR cervical spine wo conon 0 03-08-2024 MR cervical spine wo con [facility] [place] [address] [place] [address] MRI Report Signed Patient: Valentin Torre MR#: [id number] 29 : 1955 Acct:[id number] Age/Sex: 68 / M ADM Date: 03/08/24 Loc: [facility] Room: Type: [facility] Attending Dr: Mckenzie Khalil MD Copies to: [...] Yaneth Bill M.D.03/08/2024 12:27 PM Dictation Location: [place] [address] Transcribed By: MARV 03/08/24 1227 Dictated By: Yaneth Bill II, MD 03/08/24 1221 Signed By: 03/08/24 1227 Normal [facility] Operative Reporton Operative Report [id number]#1.00TIFF Normal [facility] RAD - MISCon 02-16-2024 RAD - MISC [id number]#1.00TIFF Normal [facility] ECG 12-Leadon 02-03-2024 ECG 12-Lead [id number]#1.00TIFF Normal [facility] Lab Reportson 02-03-2024 Lab Reports [id number]#1.00TIFF Normal [facility] Lab Reportson 02-02-2024 Lab Reports [id number]#1.00TIFF Normal [facility] ED Note-Physicianon 01-30-20 ED Note-Physician [id number]#1.00TIFF Normal [facility] Lab Reportson 01-30-2024 Lab Reports [id number]#1.00TIFF Normal [facility] Calculus Analysison 01-26-20 Calcium oxalate dihydrate Infrared spectroscopy (Stone) [Mass fraction] 10 % Invalid Interpretation Code [facility] Comment on above: Performed By: #### 1 [id number] ####[facility] [address] [place] [address] Calcium oxalate monohydrate (Stone) [Mass fraction] 90 % Invalid Interpretation Code [facility] Comment on above: Performed By: #### 1 [id number] ####[facility] [address] [place] [address] Color (Stone) Alexander Invalid Interpretation Code [facility] Comment on above: Performed By: #### 1 [id number] ####[facility] [address] [place] [address] Composition Comment Invalid Interpretation Code [facility] Comment on above: Result Comment: Perc entage (Represents the % composition) Performed By: #### 1 [id number] ####[facility] [address] [place] [address] Disclaimer: Comment Invalid Interpretation Code [facility] Comment on above: Result Comment: This test was developed and its performance characteristics determined by [facility]. It has not been cleared or approved by the Food and Drug Administration. Performed at: [facility] [address] [id number] Samir De Santiago Performed By: #### 1 [id number] ####[address] [address] Laboratory comment Aj (Report) Comment Invalid Interpretation Code [facility] Comment on above: Result Comment: Marcio joyner questions regarding Calculi Analysis contact [facility] at: [phone]. Performed By: #### 1 [id number] ####[address] [address] Please Note: Comment Invalid Interpretation Code [facility] Comment on above: Result Comment: Calc yovani report will follow via computer, mail or ceramic tile installer delivery. Performed By: #### 1 [id number] ####[address] [address] Size (Stone) [Entitic vol] 4x3 Invalid Interpretation Code [facility] Comment on above: Result Comment: Sing le piece received. Performed By: #### 1 [id number] ####[facility] [address] [place] [address] Specimen source subject Nom Comment Invalid Interpretation Code [facility] Comment on above: Result Comment: Not provided Performed By: #### 1 [id number] ####[place] [address] [place] [address] Stone Photo Comment Invalid Interpretation Code [facility] Comment on above: Result Comment: Phot ograph will follow under a separate cover Performed By: #### 1 [id number] ####[place] [address] [place] [address] Weight (Stone) 25 mg Invalid Interpretation Code [facility] Comment on above: Performed By: #### 1 [id number] ####[facility] [address] [place] [address] Consent for Procedure/Surger yon 01-20-2024 Consent for Procedure/Surgery [id number]#1.00TIFF Normal [facility] RAD - CT Reporton 01-20-2024 RAD - CT Report [id number]#1.00TIFF Normal [facility] Screenson 01-19-2024 Screens [id number]#1.00TIFF Normal [facility] Ambulatory Visit Summaryon 0 01-18-2024 [...] Zac MUNIZ MD Where: [facility] Ambulatory Visit Summary VALENTIN TORRE :1955 Visit [...] Zac MUNIZ MD Where: [facility] Dennise Mujica [facility] Patient Educationon 01-18-20 24 Patient Education Nephrology [...] these instructions at home: Medicines ? Take rpxn-xql-jedwjcf and prescription medicines only as told by [...] care p (more content not included)... Normal [facility] Urology Office/Clinic Noteon 01-18-2024 Urology Office/Clinic Note Chief Complaint 2 week follow up to ER visit w/ [facility] HPI Staff 2 wk f/u to ER visit w/ [facility]. Last seen by Dr. Muniz 09/19/23. Previous dx: kidney stones, hx of kidney stones. *Started on Effer-K as last OV. Electrolyte panel done 10/20/23 - results given over the phone. [facility] ER visit 01/02/24 c/o abdominal pain. Was given Levofloxacin 500mg x5 days due to WBC 16.9. Also given Flomax #10 and pain medication. Found to have R ureteral stone. CT AP wo con 01/03/24 [facility]. 01/03/24 - BUN 21, Cr 1.14, eGFR [...] Hydronephrosis with renal and ureteral calculous obstruction) [facility] ED 01/02/[address] to [address] AP wo con 01/03/24 [facility] - L renal hypodensities suggesting cysts. Bilat renal stones. [employer] 5 mm. Mild R hydroureteronephrosis w/periureteral stranding secondary to a distal ureteral stone w/in 2-3 cm of UVJ measuring 4 mm. 01/03/24 - BUN 21. Cr 1.14. eGFR >60. KUB 01/11/24 [facility] - Kidneys are partially obscured, R>L. 3 [...] Electrolyte panel 10/20/23 - wnl. KUB 01/11/24 [facility] - Kidneys are partially obscured, R>L. Group [...] With When Contact Information Zac MUNIZ MD, [facility] [address], [place] [address]- Additional Instructions: schedule L ESWL Patient Education Lithotripsy, Care After Lithotripsy Teena López (more content not included)... [facility] Comment on above: Result Comment: Elec tronically Signed By: Zac MUNIZ MD\.br\Date and Time Signed: 01/18/24 09:36 EST\.br\Electronically Co-Signed By: Teena Stanley\.br\Date and Time Co-Signed: 01/18/24 09:35 EST Lab Reportson 01-12-2024 Lab Reports [id number]#1.00TIFF [facility] RAD - MISCon 01-12-2024 RAD - MISC [id number]#1.00TIFF [facility] Carbon dioxide, total [Moles /volume] in Serum or PlasmaOrdered By: Zac Muniz on 01-11-2024 CO2 [Moles/Vol] 22.4 mmol/L Normal 21.0-31.0 [facility] Comment on above: Performed By: #### L YTES #### [address] Chloride [Moles/volume] in S ace or PlasmaOrdered By: Zacgreyson Muniz on 01-11-2024 Chloride [Moles/Vol] 104 mmol/L Normal 98-107 [facility] Comment on above: Performed By: #### L YTES #### [address] MR lumbar spine wo/w conon 0 01-11-2024 MR lumbar spine wo/w con [facility] [place] [address] [place] [address] MRI Report Signed Patient: Valentin Torre MR#: [id number] 29 : 1955 Acct:[id number] Age/Sex: 68 / M ADM Date: 01/10/24 Loc: MR Room: Type: [facility] Attending Dr: Мария DAUGHERTY Copies to: WILLOW [...] Yaneth Bill M.D.01/11/2024 12:50 PM Dictation Location: [place] [address] Transcribed By: MARV 01/11/24 1250 Dictated By: Yaneth Bill II, MD 01/11/24 1244 Signed By: 01/11/24 1250 Normal [facility] Potassium [Moles/volume] in Serum or PlasmaOrdered By: Zac Muniz on 01-11-2024 Potassium [Moles/Vol] 4.4 mmol/L Normal 3.5-5.1 [facility] Comment on above: Performed By: #### L HELEN #### [address] Serum or plasma anion gap de terminationOrdered By: Zac Muniz on 01-11-2024 Anion gap [Moles/Vol] 13.0 mmol/L Normal 6.0-15.0 [facility] Comment on above: Result Comment: PERF ORMED BY: [place] [address] PATHOLOGIST COMPUTER GAME TESTER OLMAN ALBARRAN M.D. Performed By: #### L YTES #### [address] Sodium [Moles/volume] in Ser um or PlasmaOrdered By: Zac Muniz on 01-11-2024 Sodium [Moles/Vol] 135 mmol/L Low 136-145 [facility] Comment on above: Performed By: #### L HELEN #### [facility] [address] [place] [id number] [facility] XR abdomen 1Von 01-11-2024 XR abdomen 1V [facility] [address] [place] [address] XRay Report Signed Patient: Valentin Torre MR#: [id number] 29 : 1955 Acct:[id number] Age/Sex: 68 / M ADM Date: 01/11/24 Loc: XD Room: Type: [facility] Attending Dr: Zac Muniz MD Copies [...] RIGHT URETERAL STONE. Impression dictated by: Christine Alexnadra M.D.01/11/2024 1:27 PM Dictation Location: [place] [address] Transcribed By: MARV 01/11/24 1327 Dictated By: Christine Alexandra MD 01/11/24 1321 Signed By: 01/11/24 1327 Normal [facility] Alanine aminotransferase [En zymatic activity/volume] in Serum or PlasmaOrdered By: Edenilson Reinoso on 01-03-2024 ALT [Catalytic activity/Vol] 43 U/L Normal 7-52 [facility] Comment on above: Performed By: #### H S TROP, CBC, CMP ####[address] Albumin [Mass/volume] in Ser um or Plasma by Bromocresol green (BCG) dye binding methoOrdered By: Edenilson Reinoso on 01-03-2024 Albumin BCG dye [Mass/Vol] 4.6 g/dL 3.5-5.7 [facility] Alkaline phosphatase [Enzyma tic activity/volume] in Serum or PlasmaOrdered By: Edenilson Reinoso on 01-03-2024 ALP [Catalytic activity/Vol] 78 U/L Normal 34-104 [facility] Comment on above: Performed By: #### H S TROP, CBC, CMP ####[address] Aspartate aminotransferase [ Enzymatic activity/volume] in Serum or PlasmaOrdered By: Edenilson Reinoso on 01-03-2024 AST [Catalytic activity/Vol] 28 U/L Normal 13-39 [facility] Comment on above: Performed By: #### H S TROP, CBC, CMP ####[address] Automated basophil %Ordered By: Edenilson Reinoso on 01-03-2024 Basophils/100 WBC (Bld) 0.2 % Normal . [facility] Comment on above: Performed By: #### H S TROP, CBC, CMP ####[address] Automated basophil countOrde red By: Edenilson Reinoso on 01-03-2024 Basophils (Bld) [#/Vol] 0.0 10*3/uL Normal 0.0-0.2 [facility] Comment on above: Result Comment: PERF ORMED BY: [facility] [address] [place] [address] PATHOLOGIST COMPUTER GAME TESTER OLMAN ALBARRAN M.D. Performed By: #### H S TROP, CBC, CMP ####[address] Automated blood monocyte cou ntOrdered By: Edenilson Reinoso on 01-03-2024 Monocytes (Bld) [#/Vol] 1.1 10*3/uL High 0.0-0.8 [facility] Comment on above: Performed By: #### H S TROP, CBC, CMP ####[facility] [address] Automated eosinophil %Ordere d By: Edenilson Reinoso on 01-03-2024 Eosinophils/100 WBC (Bld) 0.3 % Normal . [facility] Comment on above: Performed By: #### H S TROP, CBC, CMP ####[address] Automated eosinophil countOr dered By: Edenilson Reinoso on 01-03-2024 Eosinophils (Bld) [#/Vol] 0.0 10*3/uL Normal 0.0-0.45 [facility] Comment on above: Performed By: #### H S TROP, CBC, CMP ####[address] Automated erythrocytes count in urine sediment (number/area)Ordered By: Edenilson Reinoso on 01-03-2024 RBC Auto (Urine sed) [#/Area] 3-4 [HPF] 0-4 [facility] Automated leukocytes count i n urine sediment (number/area)Ordered By: Edenilson Reinoso on 01-03-2024 WBC Auto (Urine sed) [#/Area] 3-4 [HPF] 0-4 [facility] Automated monocyte %Ordered By: Edenilson Reinoso on 01-03-2024 Monocytes/100 WBC (Bld) 6.7 % Normal . [facility] Comment on above: Performed By: #### H S TROP, CBC, CMP ####[address] Automated neutrophil %Ordere d By: Edenilson Reinoso on 01-03-2024 Neutrophils/100 WBC (Bld) 88.0 % Normal . [facility] Comment on above: Performed By: #### H S TROP, CBC, CMP ####[address] Automated urine color determ inationOrdered By: Edenilson Reinoso on 01-03-2024 Color (U) Dark yellow Critically abnormal Yellow [facility] Comment on above: Order Comment: Name Collection Type:: Clean-Voided Midstream Performed By: #### A DDONUAPLUS ####[facility] T[address] Bilirubin Test strip Ql (U)O rdered By: Edenilson Reinoso on 01-03-2024 Bilirubin Ql (U) Negative Negative [facility] Bilirubin.total [Mass/volume ] in Serum or PlasmaOrdered By: Edenilson Reinoso on 01-03-2024 Bilirubin [Mass/Vol] 0.6 mg/dL Normal 0.3-1.0 [facility] Comment on above: Performed By: #### H S TROP, CBC, CMP ####[facility] Shb[address] abdomen pelvis wo conon 0 01-03-2024 CT abdomen pelvis wo con [facility] [address] [place] [address] CT Scan Report Signed Patient: Valentin Torre MR#: [id number] 29 : 1955 Acct:[id number] Age/Sex: 68 / M ADM Date: 01/02/24 Loc: ER Room: Type: [facility] ER Attending Dr: Copies to: Edenilson Reinoso [...] Christine Alexandra M.D.01/03/2024 9:53 AM Dictation Location: [place] [address] Transcribed By: [facility] 01/03/24 0953 Dictated By: Christine Alexandra MD 01/03/24 0947 Signed By: 01/03/24 0953 Normal [facility] Calcium [Mass/volume] in Ser um or PlasmaOrdered By: Edenilson Reinoso on 01-03-2024 Calcium [Mass/Vol] 9.3 mg/dL Normal 8.6-10.3 [facility] Comment on above: Performed By: #### H S TROP, CBC, CMP ####[facility] [address] [place] [address] [facility] Carbon dioxide, total [Moles /volume] in Serum or PlasmaOrdered By: Edenilson Reinoso on 01-03-2024 CO2 [Moles/Vol] 20.7 mmol/L Low 21.0-31.0 [facility] Comment on above: Performed By: #### H S TROP, CBC, CMP ####[place] [address] Chloride [Moles/volume] in S ace or PlasmaOrdered By: Edenilson Reinoso on 01-03-2024 Chloride [Moles/Vol] 106 mmol/L Normal 98-107 [facility] Comment on above: Performed By: #### H S TROP, CBC, CMP ####[address] Complete Blood Count Auto Di ffon 01-03-2024 Mean Corpuscular HGB Conc 33.7 g/dL Normal 32.5-35.6 [facility] Comment on above: Performed By: #### H S TROP, CBC, CMP ####[address] Monocytes/100 WBC (Bld) 20.70 % High 0.00-20.00 [facility] Comment on above: Result Comment: For adults in ED, MDW > 20.0 may be associated with a higher risk of sepsis during the first 12 hrs of hospital admission Performed By: #### H S TROP, CBC, CMP ####[address] NRBC% 0.3 /100{WBC} Normal 0-0.5 [facility] Comment on above: Performed By: #### H S TROP, CBC, CMP ####[address] Comprehensive Metabolic Pane vivek 01-03-2024 Albumin [Mass/Vol] 4.6 g/dL Normal 3.5-5.7 [facility] Comment on above: Performed By: #### H S TROP, CBC, CMP ####[address] Creatinine Clr Calc Pharmacy 73.17 Normal [facility] Comment on above: Result Comment: PERF ORMED BY: [facility] [address] [place] [address] PATHOLOGIST COMPUTER GAME TESTER OLMAN ALBARRAN M.D. Performed By: #### H S TROP, CBC, CMP ####[place] [address] [place] [address] [facility] GFR/1.73 sq M.predicted MDRD (S/P/Bld) [Vol rate/Area] mL/min/{1.73_m2} Normal [facility] Comment on above: Performed By: #### H S TROP, CBC, CMP ####[address] [facility] Creatinine [Mass/volume] in Serum or PlasmaOrdered By: Edenilson Reinoso on 01-03-2024 Creatinine [Mass/Vol] 1.14 mg/dL Normal 0.70-1.30 [facility] Comment on above: Performed By: #### H S TROP, CBC, CMP ####[place] [address] [place] [address] [facility] Dipstick and Microscopicon 0 01-03-2024 Appearance (U) Cloudy Critically abnormal Clear [facility] Comment on above: Order Comment: Name Collection Type:: Clean-Voided Midstream Performed By: #### A DDONUAPLUS ####[address] [facility] Bacteria,Urine None Seen Normal None Seen [facility] Comment on above: Order Comment: Name Collection Type:: Clean-Voided Midstream Performed By: #### A DDONUAPLUS ####[address] [facility] Bilirubin,Urine Negative Normal Negative [facility] Comment on above: Order Comment: Name Collection Type:: Clean-Voided Midstream Performed By: #### A DDONUAPLUS ####[address] [facility] Glucose Ql (U) Normal Normal Normal [facility] Comment on above: Order Comment: Name Collection Type:: Clean-Voided Midstream Performed By: #### A DDONUAPLUS ####[address] [facility] Hyaline Casts,Urine 0-8 Normal 0-8 [facility] Comment on above: Order Comment: Name Collection Type:: Clean-Voided Midstream Result Comment: PERF ORMED BY: [facility] [address] [place] [id number] PATHOLOGIST COMPUTER GAME TESTER OLMAN ALBARRAN M.D. Performed By: #### A DDONUAPLUS ####[address] [facility] Ketones Ql (U) Trace High Negative [facility] Comment on above: Order Comment: Name Collection Type:: Clean-Voided Midstream Performed By: #### A DDONUAPLUS ####[address] [facility] Leukocyte esterase Test strip Ql (U) Negative Normal Negative [facility] Comment on above: Order Comment: Name Collection Type:: Clean-Voided Midstream Performed By: #### A DDONUAPLUS ####[address] [address] [place] Nitrite,Urine Negative Normal Negative [facility] Comment on above: Order Comment: Name Collection Type:: Clean-Voided Midstream Performed By: #### A DDONUAPLUS ####[address] [address] [place] Occult Blood,Urine Negative Normal Negative [facility] Comment on above: Order Comment: Name Collection Type:: Clean-Voided Midstream Result Comment: PERF ORMED BY: [facility] [address] [place] [address] PATHOLOGIST COMPUTER GAME TESTER OLMAN ALBARRAN M.D. Performed By: #### A DDONUAPLUS ####[address] [address] [place] Protein,Urine Trace High Negative [facility] Comment on above: Order Comment: Name Collection Type:: Clean-Voided Midstream Performed By: #### A DDONUAPLUS ####[address] [address] [place] RBC,Urine 3-4 Normal 0-4 [facility] Comment on above: Order Comment: Name Collection Type:: Clean-Voided Midstream Performed By: #### A DDONUAPLUS ####[address] [place] [address] [place] Specificy Moffit,Urine 1.034 High 1.001-1.03 0 [facility] Comment on above: Order Comment: Name Collection Type:: Clean-Voided Midstream Performed By: #### A DDONUAPLUS ####[place] [id number] [facility] Squamous Epithelial Cell,Urine 0-1 Normal 0-2 [facility] Comment on above: Order Comment: Name Collection Type:: Clean-Voided Midstream Performed By: #### A DDONUAPLUS ####[place] [id number] [facility] Urobilinogen,Urine Normal Normal Normal [facility] Comment on above: Order Comment: Name Collection Type:: Clean-Voided Midstream Performed By: #### A DDONUAPLUS ####[place] [id number] [facility] WBC,Urine 3-4 Normal 0-4 [facility] Comment on above: Order Comment: Name Collection Type:: Clean-Voided Midstream Performed By: #### A DDONUAPLUS ####[address] Erythrocyte distribution wid th [Ratio] by Automated countOrdered By: Edenilson Reinoso on 01-03-2024 Erythrocyte distribution width (RBC) [Ratio] 14.7 % Normal 12.0-14.8 [facility] Comment on above: Performed By: #### H S TROP, CBC, CMP ####[address] Erythrocytes [#/volume] in B lood by Automated countOrdered By: Edenilson Reinoso on 01-03-2024 RBC (Bld) [#/Vol] 5.52 10*6/uL Normal 3.90-5.60 [facility] Comment on above: Performed By: #### H S TROP, CBC, CMP ####[address] Glucose [Mass/volume] in Ser um or PlasmaOrdered By: Edenilson Reinoso on 01-03-2024 Glucose [Mass/Vol] 148 mg/dL High 70-100 [facility] Comment on above: ADA recommended refe rence rangeRandom Glucose Reference Range is dependent on time and content of last meal. Glucose of more than 200 mg/dL in a nonstressed, ambulatory subject supports the diagnosis of Diabetes Mellitus. Result Comment: [place] om Glucose Reference Range is dependent on time and content of last meal. Glucose of more than 200 mg/dL in a nonstressed, ambulatory subject supports the diagnosis of Diabetes Mellitus. ADA recommended reference range Performed By: #### H S TROP, CBC, CMP ####[facility] [id number] [address] Hematocrit [Volume Fraction] of Blood by Automated countOrdered By: Edenilson Reinoso on 01-03-2024 Hematocrit (Bld) [Volume fraction] 49.3 % Normal 38.8-50.0 [facility] Comment on above: Performed By: #### H S TROP, CBC, CMP ####[place] [id number] Hemoglobin [Mass/volume] in BloodOrdered By: Edenilson Reinoso on 01-03-2024 Hemoglobin (Bld) [Mass/Vol] 16.6 g/dL Normal 13.0-17.0 [facility] Comment on above: Performed By: #### H S TROP, CBC, CMP ####[facility] [address] [place] [address] Ketones Auto test strip (U) [Mass/Vol]Ordered By: Edenilson Reinoso on 01-03-2024 Ketones (U) [Mass/Vol] Trace Negative [facility] - UrinalysisOrder ed By: Edenilson Reinoso on 01-03-2024 Hyaline casts LM Ql (Urine sed) 0-8 [LPF] 0-8 [facility] Leukocytes [#/volume] correc nat for nucleated erythrocytes in Blood by Automated counOrdered By: Edenilson Reinoso on 01-03-2024 WBC corrected for nucl RBC Auto (Bld) [#/Vol] 16.9 10*3/uL 4.1-10.5 [facility] Leukocytes [#/volume] in Blo od by Automated countOrdered By: Edenilson Reinoso on 01-03-2024 WBC (Bld) [#/Vol] 16.9 10*3/uL High 4.1-10.5 [facility] Comment on above: Performed By: #### H S TROP, CBC, CMP ####[address] Lymphocytes [#/volume] in Bl ood by Automated countOrdered By: Edenilson Reinoso on 01-03-2024 Lymphocytes (Bld) [#/Vol] 0.8 10*3/uL Low 1.00-4.8 [facility] Comment on above: Performed By: #### H S TROP, CBC, CMP ####[address] Lymphocytes/100 leukocytes i n Blood by Automated countOrdered By: Edenilson Reinoso on 01-03-2024 Lymphocytes/100 WBC (Bld) 4.8 % Normal . [facility] Comment on above: Performed By: #### H S TROP, CBC, CMP ####[address] MCH [Entitic mass] by Automa nat countOrdered By: Edenilson Reinoso on 01-03-2024 MCH (RBC) [Entitic mass] 30.1 pg Normal 27.5-35.2 [facility] Comment on above: Performed By: #### H S TROP, CBC, CMP ####[address] MCHC Auto (RBC) [Mass/Vol]Or dered By: Edenilson Reinoso on 01-03-2024 MCHC (RBC) [Mass/Vol] 33.7 g/dL 32.5-35.6 [facility] MCV [Entitic volume] by Auto mated countOrdered By: Edenilson Reinoso on 01-03-2024 MCV (RBC) [Entitic vol] 89.3 fL Normal 83.5-101 [facility] Comment on above: Performed By: #### H S TROP, CBC, CMP ####[address] Monocyte distribution width [Entitic volume] in Blood by AutomatedOrdered By: Edenilson Reinoso on 01-03-2024 Monocyte distribution width Auto (Bld) [Entitic vol] 20.70 % 0.00-20.00 [facility] Comment on above: For adults in ED, MD W > 20.0 may be associated with a higher risk of sepsis during the first 12 hrs of hospital admission Neutrophils [#/volume] in Bl ood by Automated countOrdered By: Edenilson Reinoso on 01-03-2024 Neutrophils (Bld) [#/Vol] 14.9 10*3/uL High 1.8-7.7 [facility] Comment on above: Performed By: #### H S TROP, CBC, CMP ####[facility] [id number] [address] Nitrite Test strip Ql (U)Ord ered By: Edenilson Reinoso on 01-03-2024 Nitrite Ql (U) Negative Negative [facility] No Panel InformationOrdered By: Edenilson Reinoso on 01-03-2024 Estimated GFR (CKD-EPI) > 60.0 mL/Min [facility] Creatinine Clearance (Chem 73.17 [facility] Nucleated erythrocytes [Pres ence] in Blood by Automated countOrdered By: Edenilson Reinoso on 01-03-2024 Nucleated RBC Auto Ql (Bld) 0.3 /100{WBC} 0-0.5 [facility] Platelet mean volume [Entiti c volume] in Blood by Automated countOrdered By: Edenilson Reinoso on 01-03-2024 Platelet mean volume (Bld) [Entitic vol] 8.5 fL Normal 6.6-10.1 [facility] Comment on above: Performed By: #### H S TROP, CBC, CMP ####[facility] [id number] [place] [id number] [facility] Platelets [#/volume] in Bloo d by Automated countOrdered By: Edenilson Reinoso on 01-03-2024 Platelets (Bld) [#/Vol] 229 10*3/uL Normal 150-450 [facility] Comment on above: Performed By: #### H S TROP, CBC, CMP ####[facility] [id number] [place] [id number] [facility] Potassium [Moles/volume] in Serum or PlasmaOrdered By: Edenilson Reinoso on 01-03-2024 Potassium [Moles/Vol] 4.4 mmol/L Normal 3.5-5.1 [facility] Comment on above: Performed By: #### H Pamela MURPHY CBC, CMP ####[address] Protein Auto test strip (U) [Mass/Vol]Ordered By: Edenilson Reinoso on 01-03-2024 Protein (U) [Mass/Vol] Trace mg/dL Negative [facility] Protein [Mass/volume] in Ser um or PlasmaOrdered By: Edenilson Reinoso on 01-03-2024 Protein [Mass/Vol] 7.0 g/dL Normal 6.4-8.9 [facility] Comment on above: Performed By: #### H Pamela MURPHY CBC, CMP ####[address] Serum globulin measurement b y calculation (mass/volume)Ordered By: Edenilson Reinoso on 01-03-2024 Globulin (S) [Mass/Vol] 2.4 g/dL Normal [facility] Comment on above: Performed By: #### H Pamela MURPHY CBC, CMP ####[address] Serum or plasma albumin/glob ulin mass ratioOrdered By: Edenilson Reinoso on 01-03-2024 Albumin/Globulin [Mass ratio] 1.9 {ratio} [facility] Comment on above: Performed By: #### H Pamela MURPHY CBC, CMP ####[address] Serum or plasma anion gap de terminationOrdered By: Edenilson Rienoso on 01-03-2024 Anion gap [Moles/Vol] 15.7 mmol/L High 6.0-15.0 [facility] Comment on above: Performed By: #### H Pamela MURPHY CBC, CMP ####[address] Sodium [Moles/volume] in Ser um or PlasmaOrdered By: Edenilson Reinoso on 01-03-2024 Sodium [Moles/Vol] 138 mmol/L Normal 136-145 [facility] Comment on above: Performed By: #### H S TROP, CBC, CMP ####[place] [address] [place] [id number] [facility] Specific gravity Auto test s trip (U) [Rel density]Ordered By: Edenilson Reinoso on 01-03-2024 Specific gravity (U) [Rel density] 1.034 1.001-1.03 0 [facility] Squamous epithelial cells de tection in urine sediment by light microscopyOrdered By: Edenilson Reinoso on 01-03-2024 Epithelial cells.squamous LM Ql (Urine sed) 0-1 [HPF] 0-2 [facility] Troponin I High Sensitivityo n 01-03-2024 Troponin I High Sensitivity 7.2 pg/mL Normal 0.0-20.0 [facility] Comment on above: Result Comment: PERF ORMED BY: [facility] [address] [facility] [place] [address] PATHOLOGIST COMPUTER [employer]AME [employer]STER OLMAN ALBARRAN M.D. Performed By: #### H S TROP, CBC, CMP ####[place] [address] [place] [id number] [facility] Troponin I.cardiac [Mass/vol ume] in Serum or Plasma by Detection limit <= 0.01 ng/Ordered By: Edenilson Reinoso on 01-03-2024 Troponin I.cardiac DL <= 0.01 ng/mL [Mass/Vol] 7.2 pg/mL 0.0-20.0 [facility] Urea nitrogen [Mass/volume] in Serum or PlasmaOrdered By: Edenilson Reinoso on 01-03-2024 Urea nitrogen [Mass/Vol] 21 mg/dL Normal 7-25 [facility] Comment on above: Performed By: #### H S TROP, CBC, CMP ####[place] [id number] [facility] Urine bacteria detection by automated methodOrdered By: Edenilson Reinoso on 01-03-2024 Bacteria Auto Ql (U) None seen None Seen [facility] Urine clarity by refractomet ry automatedOrdered By: Edenilson Reinoso on 01-03-2024 Clarity Refractometry automated (U) Cloudy Clear [facility] Urine glucose measurement by automated test strip (mass/volume)Ordered By: Edenilson Reinoso on 01-03-2024 Glucose Auto test strip (U) [Mass/Vol] Normal mg/dL Normal [facility] Urine hemoglobin detection b y automated test stripOrdered By: Edenilson Reinoso on 01-03-2024 Hemoglobin Auto test strip Ql (U) Negative Negative [facility] Urine leukocyte esterase det ection by automated test stripOrdered By: Edenilson Reinoso on 01-03-2024 Leukocyte esterase Auto test strip Ql (U) Negative Negative [facility] Urine pH measurement by auto mated test stripOrdered By: Edenilson Reinoso on 01-03-2024 pH (U) 5.0 [pH] Normal 5.0-9.0 [facility] Comment on above: Order Comment: Name Collection Type:: Clean-Voided Midstream Performed By: #### A DDONUAPLUS ####[facility] Nth7826 [address] Urobilinogen Auto test strip (U) [Mass/Vol]Ordered By: Edenilson Reinoso on 01-03-2024 Urobilinogen (U) [Mass/Vol] Normal mg/dL Normal [facility] ECG 12 lead ECGon 01-02-2024 ECG 12 lead ECG [facility] [address] Electrocardiograph Report Signed Patient: Valentin Torre MR#: [id number] [birth year] : 1955 Acct:[id number] Age/Sex: 68 / M ADM Date: 01/02/24 Loc: ER Room: Type: [facility] ER Attending Dr: Ordering Provider: Edenilson Reinoso [...] in Anterior leads Confirmed by Bayron Tim ([id number]) on 01/06/2024 6:22:05 PM Referred By: Electronically Signed By:Bayron Tim Transcribed By: MUS Signed By Bayron Tim MD 01/06/24 0133 Normal [facility] XR cerv spine AP/LAT/FLX/EXT on 12-30-2023 XR cerv spine AP/LAT/FLX/EXT [facility] [place] [address] XRay Report Signed Patient: Valentin Torre MR#: [id number] [birth year] : 1955 Acct:[id number] Age/Sex: 68 / M ADM Date: 12/30/23 Loc: XD Room: Type: [facility] Attending Dr: Мария DUMONTC Copies to: WILLOW [...] Audie Cortes M.D.12/30/2023 3:38 PM Dictation Location: [place] [address] Transcribed By: [facility] 12/30/23 1538 Dictated By: Audie Cortes DO 12/30/23 1535 Signed By: 12/30/23 153 Normal [facility] XR lumbar spine 6V w bending on 12-30-2023 XR lumbar spine 6V w bending [facility] [address] [place] [address] [place] [address] XRay Report Signed Patient: Valentin Torre MR#: [id number] [birth year] : 1955 Acct:[id number] Age/Sex: 68 / M ADM Date: 12/30/23 Loc: XD Room: Type: REG CLI Attending Dr: Мария Hernandez NP-C Copies to: [...] Audie Cortes M.D.12/30/2023 3:44 PM Dictation Location: [place] [address] Transcribed By: [facility] 12/30/23 1544 Dictated By: Audie Cortes DO 12/30/23 1540 Signed By: 12/30/23 1544 Normal [facility] XR lumbar spine 2-3V*on 11-22 XR lumbar spine 2-3V* [facility] Main [address] [address] XRay Report Signed Patient: Valentin Torre MR#: [id number] [birth year] : 1955 Acct:[id number] Age/Sex: 68 / M ADM Date: 12/15/23 Loc: XD Room: Type: REG CLI Attending Dr: Sascha Sutton DO Copies to: [...] Audie Cortes M.D.12/15/2023 2:24 PM Dictation Location: [place] [address] Transcribed By: [facility] 12/15/23 1424 Dictated By: Audie Cortes DO 12/15/23 1402 Signed By: 12/15/23 1424 Normal [facility] COMPREHENSIVE METABOLIC PANE [facility] 12-14-2023 Albumin [Mass/Vol] 4.5 g/dL Normal 3.2-5.3 [facility] Comment on above: Performed By: #### Dannie MALDONADO 90791-1 #### [facility] ([id number]) [address], [address] [place] [address] ALP [Catalytic activity/Vol] 83 U/L Normal 39-130 [facility] Comment on above: Performed By: #### Dannie MALDONADO, 29190-2 #### [facility] ([id number]) [address], [address] [place] [address] ALT [Catalytic activity/Vol] 25 U/L Normal 0-40 [facility] Comment on above: Performed By: #### Dannie MALDONADO, 83213-0 #### [facility] ([id number]) [address], [address] [place] [address] Anion gap [Moles/Vol] 11 mmol/L Normal 5-15 [facility] Comment on above: Performed By: #### Dannie MALDONADO, 84117-5 #### [facility] ([id number]) [address], [address] [place] [address] AST [Catalytic activity/Vol] 18 U/L Normal 0-41 [facility] Comment on above: Performed By: #### Dannie MALDONADO, 31941-1 #### [facility] ([id number]) [address], [address] [place] [address] Bilirubin [Mass/Vol] 0.8 mg/dL Normal 0.3-1.2 [facility] Comment on above: Performed By: #### Dannie MALDONADO, 36300-8 #### [facility] ([id number]) [address], [address] [place] [address] Calcium [Mass/Vol] 9.1 mg/dL Normal 8.5-10.5 [facility] Comment on above: Performed By: #### Dannie MALDONADO, 34468-0 #### [facility] ([id number]) [address], [address] [place] [address] Chloride [Moles/Vol] 105 mmol/L Normal 98-109 [facility] Comment on above: Performed By: #### Dannie MALDONADO, 44153-1 #### [facility] ([id number]) [address], [address] [place] [address] CO2 [Moles/Vol] 23 mmol/L Normal 22-32 [facility] Comment on above: Performed By: #### Dannie MALDONADO, 33162-2 #### [facility] ([id number]) [address], [address] [place] [address] Creatinine [Mass/Vol] 0.89 mg/dL Normal 0.60-1.30 [facility] Comment on above: Result Comment: METH OD TRACEABLE TO IDMS STANDARD Performed By: #### Dannie MALDONADO, 35268-7 #### [facility] ([id number]) [address] [place] [address] eGFR (CKD-EPI) NON-RACE DEPENDENT >90 Normal >59 [facility] Comment on above: Result Comment: Reported eGFR is based on the CKD-EPI 2020 equation that does not use a race coefficient. Performed By: #### Dannie MALDONADO, 36945-3 #### [facility] ([id number]) [address], [address] [place] [address] Glucose [Mass/Vol] 96 mg/dL Normal 65-99 [facility] Comment on above: Performed By: #### Dannie MALDONADO, 93450-7 #### [facility] ([id number]) [address] [place] [address] Potassium [Moles/Vol] 4.0 mmol/L Normal 3.5-5.0 [facility] Comment on above: Performed By: #### Dannie MALDONADO, 52021-3 #### [facility] ([id number]) [address], [address] [place] [address] Protein [Mass/Vol] 7.1 g/dL Normal 6.0-8.0 [facility] Comment on above: Performed By: #### Dannie MALDONADO, 31579-3 #### [facility] ([id number]) [address], [address] [place] [address] Sodium [Moles/Vol] 139 mmol/L Normal 134-146 [facility] Comment on above: Performed By: #### Dannie MALDONADO, 50934-5 #### [facility] ([id number]) [address], [address] [place] [address] Urea nitrogen [Mass/Vol] 25 mg/dL Normal 5-27 [facility] Comment on above: Performed By: #### Dannie MALDONADO, 19527-4 #### [facility] ([id number]) [address], [address] [place] [address] Comprehensive metabolic pane vivek 12-14-2023 Albumin [Mass/Vol] 4.5 g/dL 3.2 - 5.3 g/dL [facility] ALP [Catalytic activity/Vol] 83 U/L 39 - 130 U/L [facility] ALT No additional P-5'-P [Catalytic activity/Vol] 25 U/L 0 - 40 U/L [facility] Anion gap [Moles/Vol] 11 mmol/L 5 - 15 mmol/L [facility] AST [Catalytic activity/Vol] 18 U/L 0 - 41 U/L [facility] Bilirubin [Mass/Vol] 0.8 mg/dL 0.3 - 1 .2 mg/dL [facility] Calcium [Mass/Vol] 9.1 mg/dL 8.5 - 10. 5 mg/dL [facility] Chloride [Moles/Vol] 105 mmol/L 98 - 10 9 mmol/L [facility] CO2 [Moles/Vol] 23 mmol/L 22 - 32 mmol/L [facility] Creatinine [Mass/Vol] 0.89 mg/dL 0.60 - 1.30 mg/dL [facility] Comment on above: METHOD TRACEABLE TO [facility] STANDARD eGFR (CKD-EPI)non-race dependent - PINF [facility] Comment on above: Reported eGFR is based on the CKD-EPI 2020 equation that does not use a race coefficient. Glucose [Mass/Vol] 96 mg/dL 65 - 99 mg/dL [facility] Potassium [Moles/Vol] 4.0 mmol/L 3.5 - 5.0 mmol/L [facility] Protein [Mass/Vol] 7.1 g/dL 6.0 - 8.0 g/dL [facility] Sodium [Moles/Vol] 139 mmol/L 134 - 146 mmol/L [facility] Urea nitrogen [Mass/Vol] 25 mg/dL 5 - 27 mg/dL [facility] Lipid 1996 panelon Cholesterol [Mass/Vol] 124 mg/dL Low 150 - 200 mg/dL [facility] Cholesterol in HDL [Mass/Vol] 46 mg/dL 39 - PINF mg/dL [facility] Comment on above: HDL <40 mg/dL - High Risk HDL > or = 40mg/dL- Desirable HDL >60 mg/dL - Negative Risk Cholesterol in LDL [Mass/Vol] 57 mg/dL NINF - 130 mg/dL [facility] Comment on above: LDL <100 mg/dL - Desirable LDL >160 mg/dL - High Risk Cholesterol in VLDL [Mass/Vol] 21 mg/dL 0 - 30 mg/dL [facility] Cholesterol.total/Chol esterol in HDL [Mass ratio] 2.7 {ratio} 1.0 - 5.0 [facility] Interpretation and review of laboratory results Abnormal [facility] Triglyceride [Mass/Vol] 103 mg/dL 27 - 150 mg/dL [facility] Cholesterol [Mass/Vol] 124 mg/dL Low 150-200 [facility] Comment on above: Performed By: #### Dannie MALDONADO, 22972-2 #### [facility] ([id number]) [address], [address] [place] [address] Cholesterol in HDL [Mass/Vol] 46 mg/dL Normal >39 [facility] Comment on above: Result Comment: HDL <40 mg/dL - High Risk HDL > or = 40mg/dL- Desirable HDL >60 mg/dL - Negative Risk Performed By: #### Dannie MALDONADO, 45133-1 #### [facility] ([id number]) [address], [address] [place] [address] Cholesterol in LDL [Mass/Vol] 57 mg/dL Normal <130 [facility] Comment on above: Result Comment: LDL <100 mg/dL - Desirable LDL >160 mg/dL - High Risk Performed By: #### C ERICA, 80062-7 #### [facility] ([id number]) [address] [place] [address] Cholesterol in VLDL [Mass/Vol] 21 mg/dL Normal 0-30 [facility] Comment on above: Performed By: #### Dannie MALDONADO, 61020-3 #### [facility] ([id number]) [address] [place] [address] CHOLESTEROL:HDL 2.7 Normal 1.0-5.0 [facility] Comment on above: Performed By: #### Dannie MALDONADO, 75347-7 #### [facility] ([id number]) [address], [address] [place] [address] Triglyceride [Mass/Vol] 103 mg/dL Normal 27-150 [facility] Comment on above: Performed By: #### Dannie MALDONADO, 45731-4 #### [facility] ([id number]) [address], [facility] [address] [place] [address] No Panel Informationon 12-14 [facility] Alanine aminotransferase [En zymatic activity/volume] in Serum or PlasmaOrdered By: Romel Davis on 12-08-2023 ALT [Catalytic activity/Vol] 31 U/L Normal 7-52 [facility] Comment on above: Performed By: #### C H50, C4, C3 #### [facility] , #### ADDONUAPLUS, CMP, ESR, CBC #### [facility] [address] [place] [id number] [facility] Albumin [Mass/volume] in Ser um or Plasma by Bromocresol green (BCG) dye binding methoOrdered By: Romel Davis on 12-08-2023 Albumin BCG dye [Mass/Vol] 4.3 g/dL 3.5-5.7 [facility] Alkaline phosphatase [Enzyma tic activity/volume] in Serum or PlasmaOrdered By: Romel Mendezrow on 12-08-2023 ALP [Catalytic activity/Vol] 80 U/L Normal 34-104 [facility] Comment on above: Result Comment: PERF ORMED BY: [place] [address] PATHOLOGIST COMPUTER GAME TESTER OLMAN ALBARRAN M.D. Performed By: #### C H50, C4, C3 #### [facility] , #### ADDONUAPLUS, CMP, ESR, CBC #### [address] Aspartate aminotransferase [ Enzymatic activity/volume] in Serum or PlasmaOrdered By: Romelsera Davis on 12-08-2023 AST [Catalytic activity/Vol] 19 U/L Normal 13-39 [facility] Comment on above: Performed By: #### C H50, C4, C3 #### [facility] , #### ADDONUAPLUS, CMP, ESR, CBC #### [address] Automated basophil %Ordered By: Romel Ryan on 12-08-2023 Basophils/100 WBC (Bld) 0.5 % Normal . [facility] Comment on above: Performed By: #### C H50, C4, C3 #### [facility] , #### ADDONUAPLUS, CMP, ESR, CBC #### [address] Automated basophil countOrde red By: Romel Mendezrow on 12-08-2023 Basophils (Bld) [#/Vol] 0.0 10*3/uL Normal 0.0-0.2 [facility] Comment on above: Performed By: #### C H50, C4, C3 #### [facility] , #### ADDONUAPLUS, CMP, ESR, CBC #### [address] Automated blood monocyte cou ntOrdered By: Romel Ryan on 12-08-2023 Monocytes (Bld) [#/Vol] 0.9 10*3/uL High 0.0-0.8 [facility] Comment on above: Performed By: #### C H50, C4, C3 #### [facility] , #### ADDONUAPLUS, CMP, ESR, CBC #### [address] Automated eosinophil %Ordere d By: Romelsera Davis on 12-08-2023 Eosinophils/100 WBC (Bld) 1.2 % Normal . [facility] Comment on above: Performed By: #### C H50, C4, C3 #### [facility] , #### ADDONUAPLUS, CMP, ESR, CBC #### [address] Automated eosinophil countOr dered By: Romel Davis on 12-08-2023 Eosinophils (Bld) [#/Vol] 0.1 10*3/uL Normal 0.0-0.45 [facility] Comment on above: Performed By: #### C H50, C4, C3 #### [facility] , #### ADDONUAPLUS, CMP, ESR, CBC #### [facility] [address] [place] [address] Automated erythrocytes count in urine sediment (number/area)Ordered By: Romel Davis on 12-08-2023 RBC Auto (Urine sed) [#/Area] 1-2 [HPF] 0-4 [facility] [facility] Automated leukocytes count i n urine sediment (number/area)Ordered By: Romel Davis on 12-08-2023 WBC Auto (Urine sed) [#/Area] 0-1 [HPF] 0-4 [facility] Automated monocyte %Ordered By: Romel Davis on 12-08-2023 Monocytes/100 WBC (Bld) 14.0 % Normal . [facility] Comment on above: Performed By: #### C H50, C4, C3 #### [facility] , #### ADDONUAPLUS, CMP, ESR, CBC #### [facility] [address] [place] [address] Automated neutrophil %Ordere d By: Romel Davis on 12-08-2023 Neutrophils/100 WBC (Bld) 69.2 % Normal . [facility] Comment on above: Performed By: #### C H50, C4, C3 #### [facility] , #### ADDONUAPLUS, CMP, ESR, CBC #### [address] Bilirubin Auto test strip Ql (U)Ordered By: Romel Mendezrow on 12-08-2023 Bilirubin Ql (U) Negative Negative [facility] Bilirubin.total [Mass/volume ] in Serum or PlasmaOrdered By: Romel Mendezrow on 12-08-2023 Bilirubin [Mass/Vol] 0.6 mg/dL Normal 0.3-1.0 [facility] Comment on above: Performed By: #### C H50, C4, C3 #### [facility] , #### ADDONUAPLUS, CMP, ESR, CBC #### [address] Calcium [Mass/volume] in Ser um or PlasmaOrdered By: Romel Mendezrow on 12-08-2023 Calcium [Mass/Vol] 9.4 mg/dL Normal 8.6-10.3 [facility] Comment on above: Performed By: #### C H50, C4, C3 #### [facility] , #### ADDONUAPLUS, CMP, ESR, CBC #### [address] Carbon dioxide, total [Moles /volume] in Serum or PlasmaOrdered By: Romel Mendezrow on 12-08-2023 CO2 [Moles/Vol] 25.7 mmol/L Normal 21.0-31.0 [facility] Comment on above: Performed By: #### C H50, C4, C3 #### [facility] , #### ADDONUAPLUS, CMP, ESR, CBC #### [facility] [address] [place] [address] Chloride [Moles/volume] in S ace or PlasmaOrdered By: Romel Davis on 12-08-2023 Chloride [Moles/Vol] 105 mmol/L Normal 98-107 [facility] Comment on above: Performed By: #### C H50, C4, C3 #### [facility] , #### ADDONUAPLUS, CMP, ESR, CBC #### [facility] [address] [place] [address] Complement C3on 12-08-2023 Complement C3 122 mg/dL Normal 82-167 [facility] Comment on above: Result Comment: Perf ormed at: - [facility] [place] [id number] Materials Planning Analyst: Richy Ardon PhD, Phone: [phone] Performed By: #### C H50, C4, C3 #### [facility] , #### ADDONUAPLUS, CMP, ESR, CBC #### [facility] [address] [place] [address] Complement C4on 12-08-2023 Complement C4 14 mg/dL Normal 12-38 [facility] Comment on above: Result Comment: PERF ORMED BY: [place] [address] PATHOLOGIST COMPUTER GAME TESTER OLMAN ALBARRAN M.D. Performed By: #### C H50, C4, C3 ####[facility] ,#### ADDONUAPLUS, CMP, ESR, CBC ####[facility] [id number] [place] [address] Complement Total (CH50)on Complement Total (CH50) 58 Normal >41 [facility] Comment on above: Result Comment: [...] of range values. Performed at: - [facility] [address] [id number] Materials Planning Analyst: Richy Ardon PhD, Phone: [phone] PERFORMED BY: [place] [address] PATHOLOGIST COMPUTER GAME TESTER OLMAN ALBARRAN M.D. Performed By: #### C H50, C4, C3 ####[facility] ,#### ADDONUAPLUS, CMP, ESR, CBC ####[address] Complete Blood Count Auto Di ffon 12-08-2023 Mean Corpuscular HGB Conc 34.5 g/dL Normal 32.5-35.6 [facility] Comment on above: Performed By: #### C H50, C4, C3 #### [facility] , #### ADDONUAPLUS, CMP, ESR, CBC #### [address] NRBC% 0.1 /100{WBC} Normal 0-0.5 [facility] Comment on above: Performed By: #### C H50, C4, C3 #### [facility] , #### ADDONUAPLUS, CMP, ESR, CBC #### [address] Comprehensive Metabolic Pane vivek 12-08-2023 Albumin [Mass/Vol] 4.3 g/dL Normal 3.5-5.7 [facility] Comment on above: Performed By: #### C H50, C4, C3 #### [facility] , #### ADDONUAPLUS, CMP, ESR, CBC #### [address] GFR/1.73 sq M.predicted MDRD (S/P/Bld) [Vol rate/Area] mL/min/{1.73_m2} Normal [facility] Comment on above: Performed By: #### C H50, C4, C3 #### [facility] , #### ADDONUAPLUS, CMP, ESR, CBC #### [address] Creatinine [Mass/volume] in Serum or PlasmaOrdered By: Romel Davis on 12-08-2023 Creatinine [Mass/Vol] 1.00 mg/dL Normal 0.70-1.30 [facility] Comment on above: Performed By: #### C H50, C4, C3 #### [facility] , #### ADDONUAPLUS, CMP, ESR, CBC #### [address] Dipstick and Microscopicon 0 12-08-2023 Bacteria,Urine None Seen Normal None Seen [facility] Comment on above: Order Comment: Name Collection Type:: Clean-Voided Midstream Performed By: #### C H50, C4, C3 #### [facility] , #### ADDONUAPLUS, CMP, ESR, CBC #### [address] Bilirubin,Urine Negative Normal Negative [facility] Comment on above: Order Comment: Name Collection Type:: Clean-Voided Midstream Performed By: #### C H50, C4, C3 #### [facility] , #### ADDONUAPLUS, CMP, ESR, CBC #### [facility] [address] [place] [address] [place] Glucose Ql (U) Normal Normal Normal [facility] Comment on above: Order Comment: Name Collection Type:: Clean-Voided Midstream Performed By: #### C H50, C4, C3 #### [facility] , #### ADDONUAPLUS, CMP, ESR, CBC #### [address] Hyaline Casts,Urine 0-8 Normal 0-8 [facility] Comment on above: Order Comment: Name Collection Type:: Clean-Voided Midstream Result Comment: PERF ORMED BY: [place] [address] PATHOLOGIST COMPUTER GAME TESTER OLMAN ALBARRAN M.D. Performed By: #### C H50, C4, C3 #### [facility] , #### ADDONUAPLUS, CMP, ESR, CBC #### [address] Ketones Ql (U) Negative Normal Negative [facility] Comment on above: Order Comment: Name Collection Type:: Clean-Voided Midstream Performed By: #### C H50, C4, C3 #### [facility] , #### ADDONUAPLUS, CMP, ESR, CBC #### [address] Leukocyte esterase Test strip Ql (U) Negative Normal Negative [facility] Comment on above: Order Comment: Name Collection Type:: Clean-Voided Midstream Performed By: #### C H50, C4, C3 #### [facility] , #### ADDONUAPLUS, CMP, ESR, CBC #### [place] [address] [place] Nitrite,Urine Negative Normal Negative [facility] Comment on above: Order Comment: Name Collection Type:: Clean-Voided Midstream Performed By: #### C H50, C4, C3 #### [facility] , #### ADDONUAPLUS, CMP, ESR, CBC #### [address] Occult Blood,Urine Negative Normal Negative [facility] Comment on above: Order Comment: Name Collection Type:: Clean-Voided Midstream Performed By: #### C H50, C4, C3 #### [facility] , #### ADDONUAPLUS, CMP, ESR, CBC #### [address] Protein,Urine Negative Normal Negative [facility] Comment on above: Order Comment: Name Collection Type:: Clean-Voided Midstream Performed By: #### C H50, C4, C3 #### [facility] , #### ADDONUAPLUS, CMP, ESR, CBC #### [address] RBC,Urine 1-2 Normal 0-4 [facility] Comment on above: Order Comment: Name Collection Type:: Clean-Voided Midstream Performed By: #### C H50, C4, C3 #### [facility] , #### ADDONUAPLUS, CMP, ESR, CBC #### [address] Specificy Moffit,Urine 1.025 Normal 1.001-1.03 0 [facility] Comment on above: Order Comment: Name Collection Type:: Clean-Voided Midstream Performed By: #### C H50, C4, C3 #### [facility] , #### ADDONUAPLUS, CMP, ESR, CBC #### [address] Squamous Epithelial Cell,Urine None Seen Normal 0-2 [facility] Comment on above: Order Comment: Name Collection Type:: Clean-Voided Midstream Performed By: #### C H50, C4, C3 #### [facility] , #### ADDONUAPLUS, CMP, ESR, CBC #### [address] Urobilinogen,Urine Normal Normal Normal [facility] Comment on above: Order Comment: Name Collection Type:: Clean-Voided Midstream Performed By: #### C H50, C4, C3 #### [facility] , #### ADDONUAPLUS, CMP, ESR, CBC #### [address] WBC LM.HPF (Urine sed) [#/Area] 0 /[HPF] Normal 0-4 [facility] Comment on above: Order Comment: Name Collection Type:: Clean-Voided Midstream Performed By: #### C H50, C4, C3 #### [facility] , #### ADDONUAPLUS, CMP, ESR, CBC #### [address] Erythrocyte Sedimentation Ra bruno 12-08-2023 ESR (Bld) [Velocity] 5 mm/h Normal 0-19 [facility] Comment on above: Result Comment: PERF ORMED BY: [place] [address] PATHOLOGIST COMPUTER GAME TESTER OLMAN ALBARRAN M.D. Performed By: #### C H50, C4, C3 #### [facility] , #### ADDONUAPLUS, CMP, ESR, CBC #### [address] Erythrocyte distribution wid th [Ratio] by Automated countOrdered By: Romel Davis on 12-08-2023 Erythrocyte distribution width (RBC) [Ratio] 14.5 % Normal 12.0-14.8 [facility] Comment on above: Performed By: #### C H50, C4, C3 #### [facility] , #### ADDONUAPLUS, CMP, ESR, CBC #### [address] Erythrocyte sedimentation ra te by Photometric methodOrdered By: Romel Davis on 12-08-2023 ESR Photometric method (Bld) [Velocity] 5 mm/hr 0-19 [facility] Erythrocytes [#/volume] in B lood by Automated countOrdered By: Romel Davis on 12-08-2023 RBC (Bld) [#/Vol] 5.18 10*6/uL Normal 3.90-5.60 [facility] Comment on above: Performed By: #### C H50, C4, C3 #### [facility] , #### ADDONUAPLUS, CMP, ESR, CBC #### [facility] [address] [place] [address] [place] Glucose [Mass/volume] in Ser um or PlasmaOrdered By: Romel Davis on 12-08-2023 Glucose [Mass/Vol] 88 mg/dL Normal 70-100 [facility] Comment on above: ADA recommended refe rence rangeRandom Glucose Reference Range is dependent on time and content of last meal. Glucose of more than 200 mg/dL in a nonstressed, ambulatory subject supports the diagnosis of Diabetes Mellitus. Result Comment: [place] om Glucose Reference Range is dependent on time and content of last meal. Glucose of more than 200 mg/dL in a nonstressed, ambulatory subject supports the diagnosis of Diabetes Mellitus. ADA recommended reference range Performed By: #### C H50, C4, C3 #### [facility] , #### ADDONUAPLUS, CMP, ESR, CBC #### [facility] [address] Hematocrit [Volume Fraction] of Blood by Automated countOrdered By: Romel Mendezrow on 12-08-2023 Hematocrit (Bld) [Volume fraction] 46.1 % Normal 38.8-50.0 [facility] Comment on above: Performed By: #### C H50, C4, C3 #### [facility] , #### ADDONUAPLUS, CMP, ESR, CBC #### [facility] [address] [place] [address] [place] Hemoglobin [Mass/volume] in BloodOrdered By: Romel Davis on 12-08-2023 Hemoglobin (Bld) [Mass/Vol] 15.9 g/dL Normal 13.0-17.0 [facility] Comment on above: Performed By: #### C H50, C4, C3 #### [facility] , #### ADDONUAPLUS, CMP, ESR, CBC #### [facility] [address] Ketones Auto test strip (U) [Mass/Vol]Ordered By: Romel Mendezrow on 12-08-2023 Ketones (U) [Mass/Vol] Negative Negative [facility] - UrinalysisOrder ed By: Romel Mendezrow on 12-08-2023 Hyaline casts LM Ql (Urine sed) 0-8 [LPF] 0-8 [facility] Leukocytes [#/volume] correc nat for nucleated erythrocytes in Blood by Automated counOrdered By: Romel Ryan on 12-08-2023 WBC corrected for nucl RBC Auto (Bld) [#/Vol] 6.4 10*3/uL 4.1-10.5 [facility] Leukocytes [#/volume] in Blo od by Automated countOrdered By: Romel Ryan on 12-08-2023 WBC (Bld) [#/Vol] 6.4 10*3/uL Normal 4.1-10.5 [facility] Comment on above: Performed By: #### C H50, C4, C3 #### [facility] , #### ADDONUAPLUS, CMP, ESR, CBC #### [facility] [address] [place] [address] Lymphocytes [#/volume] in Bl ood by Automated countOrdered By: Romelsera Davis on 12-08-2023 Lymphocytes (Bld) [#/Vol] 1.0 10*3/uL Normal 1.00-4.8 [facility] Comment on above: Performed By: #### C H50, C4, C3 #### [facility] , #### ADDONUAPLUS, CMP, ESR, CBC #### [facility] [address] [place] [address] [place] Lymphocytes/100 leukocytes i n Blood by Automated countOrdered By: Romel Davis on 12-08-2023 Lymphocytes/100 WBC (Bld) 15.1 % Normal . [facility] Comment on above: Performed By: #### C H50, C4, C3 #### [facility] , #### ADDONUAPLUS, CMP, ESR, CBC #### [facility] [address] [place] [address] MCH [Entitic mass] by Automa nat countOrdered By: Romel Mendezrow on 12-08-2023 MCH (RBC) [Entitic mass] 30.7 pg Normal 27.5-35.2 [facility] Comment on above: Performed By: #### C H50, C4, C3 #### [facility] , #### ADDONUAPLUS, CMP, ESR, CBC #### [address] MCHC Auto (RBC) [Mass/Vol]Or dered By: Romel Ryan on 12-08-2023 MCHC (RBC) [Mass/Vol] 34.5 g/dL 32.5-35.6 [facility] MCV [Entitic volume] by Auto mated countOrdered By: Romel Ryan on 12-08-2023 MCV (RBC) [Entitic vol] 89.0 fL Normal 83.5-101 [facility] Comment on above: Performed By: #### C H50, C4, C3 #### [facility] , #### ADDONUAPLUS, CMP, ESR, CBC #### [address] Neutrophils [#/volume] in Bl ood by Automated countOrdered By: Romelsera Davis on 12-08-2023 Neutrophils (Bld) [#/Vol] 4.4 10*3/uL Normal 1.8-7.7 [facility] Comment on above: Performed By: #### C H50, C4, C3 #### [facility] , #### ADDONUAPLUS, CMP, ESR, CBC #### [address] No Panel InformationOrdered By: Romelsera Davis on 12-08-2023 Estimated GFR (CKD-EPI) > 60.0 mL/Min [facility] Creatinine Clearance (Chem N/A [facility] Total Complement (CH50) 58 U/mL >41 [facility] Comment on above: Age Male Female [...] to determine out of range values.Performed at: [employer] [address] [id number] Director: Richy Ardon PhD, Phone: [phone] Nucleated erythrocytes [Pres ence] in Blood by Automated countOrdered By: Romel Davis on 12-08-2023 Nucleated RBC Auto Ql (Bld) 0.1 /100{WBC} 0-0.5 [facility] Platelet mean volume [Entiti c volume] in Blood by Automated countOrdered By: Romel Davis on 12-08-2023 Platelet mean volume (Bld) [Entitic vol] 8.7 fL Normal 6.6-10.1 [facility] Comment on above: Performed By: #### C H50, C4, C3 #### [facility] , #### ADDONUAPLUS, CMP, ESR, CBC #### [facility] [address] [place] [address] [place] Platelets [#/volume] in Bloo d by Automated countOrdered By: Romel Davis on 12-08-2023 Platelets (Bld) [#/Vol] 203 10*3/uL Normal 150-450 [facility] Comment on above: Performed By: #### C H50, C4, C3 #### [facility] , #### ADDONUAPLUS, CMP, ESR, CBC #### [facility] [address] [place] [id number] [place] Potassium [Moles/volume] in Serum or PlasmaOrdered By: Romel Davis on 12-08-2023 Potassium [Moles/Vol] 4.3 mmol/L Normal 3.5-5.1 [facility] Comment on above: Performed By: #### C H50, C4, C3 #### [facility] , #### ADDONUAPLUS, CMP, ESR, CBC #### [address] Protein Auto test strip (U) [Mass/Vol]Ordered By: Romel Davis on 12-08-2023 Protein (U) [Mass/Vol] Negative Negative [facility] Protein [Mass/volume] in Ser um or PlasmaOrdered By: Romel Davis on 12-08-2023 Protein [Mass/Vol] 6.3 g/dL Low 6.4-8.9 [facility] Comment on above: Performed By: #### C H50, C4, C3 #### [facility] , #### ADDONUAPLUS, CMP, ESR, CBC #### [address] Serum globulin measurement b y calculation (mass/volume)Ordered By: Romel Davis on 12-08-2023 Globulin (S) [Mass/Vol] 2.0 g/dL [facility] Comment on above: Performed By: #### C H50, C4, C3 #### [facility] , #### ADDONUAPLUS, CMP, ESR, CBC #### [facility] [address] [place] [address] Serum or plasma albumin/glob ulin mass ratioOrdered By: Romel Davis on 12-08-2023 Albumin/Globulin [Mass ratio] 2.2 {ratio} [facility] Comment on above: Performed By: #### C H50, C4, C3 #### [facility] , #### ADDONUAPLUS, CMP, ESR, CBC #### [address] Serum or plasma anion gap de terminationOrdered By: Romel Davis on 12-08-2023 Anion gap [Moles/Vol] 10.6 mmol/L Normal 6.0-15.0 [facility] Comment on above: Performed By: #### C H50, C4, C3 #### [facility] , #### ADDONUAPLUS, CMP, ESR, CBC #### [address] Serum or plasma complement C 3 measurement (mass/volume)Ordered By: Romel Davis on 12-08-2023 Complement C3 [Mass/Vol] 122 mg/dL 82-167 [facility] Comment on above: Performed at: [place] [id number] Director: Richy Ardon PhD, Phone: [phone] Serum or plasma complement C 4 measurement (mass/volume)Ordered By: Romel Davis on 12-08-2023 Complement C4 [Mass/Vol] 14 mg/dL 12-38 [facility] Sodium [Moles/volume] in Ser um or PlasmaOrdered By: Romel Davis on 12-08-2023 Sodium [Moles/Vol] 137 mmol/L Normal 136-145 [facility] Comment on above: Performed By: #### C H50, C4, C3 #### [facility] , #### ADDONUAPLUS, CMP, ESR, CBC #### [address] Squamous epithelial cells de tection in urine sediment by light microscopyOrdered By: Romel Davis on 12-08-2023 Epithelial cells.squamous LM Ql (Urine sed) None seen [HPF] 0-2 [facility] Urea nitrogen [Mass/volume] in Serum or PlasmaOrdered By: Romel Davis on 12-08-2023 Urea nitrogen [Mass/Vol] 27 mg/dL High 7-25 [facility] Comment on above: Performed By: #### C H50, C4, C3 #### [facility] , #### ADDONUAPLUS, CMP, ESR, CBC #### [address] Urine appearanceOrdered By: Romel Mendezrow on 12-08-2023 Appearance (U) Clear Normal Clear [facility] Comment on above: Order Comment: Name Collection Type:: Clean-Voided Midstream Performed By: #### C H50, C4, C3 #### [facility] , #### ADDONUAPLUS, CMP, ESR, CBC #### [facility] [address] [place] [address] Urine bacteria detection by automated methodOrdered By: Romel Ryan on 12-08-2023 Bacteria Auto Ql (U) None seen None Seen [facility] Urine colorOrdered By: Manuel zamora Ryan on 12-08-2023 Color (U) Yellow Normal Yellow [facility] Comment on above: Order Comment: Name Collection Type:: Clean-Voided Midstream Performed By: #### C H50, C4, C3 #### [facility] , #### ADDONUAPLUS, CMP, ESR, CBC #### [facility] [address] [place] [address] Urine glucose measurement by automated test strip (mass/volume)Ordered By: Romel Davis on 12-08-2023 Glucose Auto test strip (U) [Mass/Vol] Normal mg/dL Normal [facility] Urine hemoglobin detection b y automated test stripOrdered By: Romel Davis on 12-08-2023 Hemoglobin Auto test strip Ql (U) Negative Negative [facility] Urine leukocyte esterase det ection by automated test stripOrdered By: Romel Davis on 12-08-2023 Leukocyte esterase Auto test strip Ql (U) Negative Negative [facility] Urine nitrite detection by a utomated test stripOrdered By: Romel Davis on 12-08-2023 Nitrite Auto test strip Ql (U) Negative Negative [facility] Urine pH measurement by auto mated test stripOrdered By: Romel Davis on 12-08-2023 pH (U) 7.0 [pH] Normal 5.0-9.0 [facility] Comment on above: Order Comment: Name Collection Type:: Clean-Voided Midstream Performed By: #### C H50, C4, C3 #### [facility] , #### ADDONUAPLUS, CMP, ESR, CBC #### [facility] [address] Urobilinogen Auto test strip (U) [Mass/Vol]Ordered By: Romel Davis on 12-08-2023 Urobilinogen (U) [Mass/Vol] Normal mg/dL Normal [facility] pH Auto test strip (U)Ordere d By: Romel Davis on 12-08-2023 pH (U) 1.025 [pH] 1.001-1.03 0 [facility] Lab Reportson 10-21-2023 Lab Reports [id number] Normal [facility] Carbon dioxide, total [Moles /volume] in Serum or PlasmaOrdered By: Zac Muniz on 10-20-2023 CO2 [Moles/Vol] 23.8 mmol/L 21.0-31.0 [facility] Chloride [Moles/volume] in S ace or PlasmaOrdered By: Zac Muniz on 10-20-2023 Chloride [Moles/Vol] 107 mmol/L 98-107 [facility] Potassium [Moles/volume] in Serum or PlasmaOrdered By: Zac Muniz on 10-20-2023 Potassium [Moles/Vol] 4.1 mmol/L 3.5-5.1 [facility] Serum or plasma anion gap de terminationOrdered By: Zac Muniz on 10-20-2023 Anion gap [Moles/Vol] 12.3 mmol/L 6.0-15.0 [facility] Sodium [Moles/volume] in Ser um or PlasmaOrdered By: Zac Muniz on 10-20-2023 Sodium [Moles/Vol] 139 mmol/L 136-145 [facility] Ambulatory Visit Summaryon 1 Ambulatory Visit Summary VALENTIN TORRE :1955 Visit Date:09/19/2023 Ambulatory Visit Instructions Your Diagnosis Kidney stones History of kidney stones Tests Performed Urnls Dip Stick Auto w/o Microscopy POC 54694 XR Abdomen 1 View -- Results Pending [...] Schedule the Following Appointments Follow Up with Zac MUNIZ MD, EMILIA When: Where: [facility] [address] [place] [address] [phone] Medications What How Much When Instructions Unchanged [...] Urnls Dip Stick Auto w/o Microscopy POC [id number] (09/19/2023) Bilirubin Urine Dipstick - Negative Blood Urine Dipstick - Negative Glucose Urine Dipstick - Negative Ketones Urine Dipstick - Negative Leukocytes Urine Dipstick - Negative Nitrite Urine Dipstick - Negative Protein Urine Dipstick - Negative Specific Moffit Urine Dipstick - 1.015 Urine Appearance Urine [...] You m (more content not included)... Normal [facility] Patient Educationon 09-19-20 23 Patient Education Nephrology Dietary Guidelines to Help [...] ? 8 oz (237 mL) of milk, sgdyaff-dvahkkfctkrc-lmddl milk, and calcium-fortifiedfruit juice. Calcium-fortified means that [...] Spinach (cooked), rhubarb, beets, sweet potatoes, and [place] chard. ? Peanuts. ? Potato chips, cymro fries, and baked potatoes with skin on. ? Nuts and nut products. ? Chocolate. ? If you regularly take a diuretic medicine, make sure to eat at least 1 or 2 servings of fruits or vegetables that are high in potassium each day. These include: ? Avocado. ? Banana. ? [place], prune, carrot, or tomato juice. ? Baked [...] fish oil, or vitamin B6. ? Take acbv-mjv-ybklwez and prescription medicines only as told by your health care provider. These include supplements. What foods should I limit? Limit your in (more content not included)... Normal [facility] Urology Office/Clinic Noteon 09-19-2023 Urology Office/Clinic Note Chief Complaint 4m Metabolic Work Up HPI Staff 68 yo male here for 4 month f/u with metabolic workup. Previous Dx: ureteral stone with hydro, kidney stones, hx of kidney stones, gross hematuria. Stone analysis 05/18/23 - 100% uric acid. [place] 08/04/23 [place] [facility] continued bilateral stones. 24hr urine done [...] - 100% uric acid. KUB 08/04/23 at [facility] [place] two stones at R mid-upper pole [...] acknowledges understanding. -Begin Effer-K. Rx sent to [facility]. -Electrolyte panel in 1 month 2. History of kidney stones (Z87.442: Personal history of urinary calculi) Pt has a hx of kidney stones but has always been able to pass them on is own. Three episodes in his lifetime. Recently passed stones on 05/15/23. Follow-up With When Contact Information FLAVIO ONEAL, Zac De Oliveira, URL [facility] [address], [place] [address] [phone] Additional Instructions: 6 mos w/ KUB Patient [...] Substance Abuse, (more content not included)... Normal [facility] Comment on above: Result Comment: Elec tronically Signed By: Zac MUNIZ MD\.br\Date and Time Signed: 09/19/23 10:31 EDT\.br\Electronically Co-Signed By: Adela Frias\Date and Time Co-Signed: 09/19/23 10:30 EDT Alanine aminotransferase [En zymatic activity/volume] in Serum or PlasmaOrdered By: Romel Davis on 09-05-2023 ALT [Catalytic activity/Vol] 29 U/L 7-52 [facility] Albumin [Mass/volume] in Ser um or Plasma by Bromocresol green (BCG) dye binding methoOrdered By: Romel Davis on 09-05-2023 Albumin BCG dye [Mass/Vol] 4.2 g/dL 3.5-5.7 [facility] Alkaline phosphatase [Enzyma tic activity/volume] in Serum or PlasmaOrdered By: Romel Davis on 09-05-2023 ALP [Catalytic activity/Vol] 83 U/L 34-104 [facility] Aspartate aminotransferase [ Enzymatic activity/volume] in Serum or PlasmaOrdered By: Romel Davis on 09-05-2023 AST [Catalytic activity/Vol] 19 U/L 13-39 [facility] Automated erythrocytes count in urine sediment (number/area)Ordered By: Romel Davis on 09-05-2023 RBC Auto (Urine sed) [#/Area] 0-1 [HPF] 0-4 [facility] Automated leukocytes count i n urine sediment (number/area)Ordered By: Romel Davis on 09-05-2023 WBC Auto (Urine sed) [#/Area] 0-1 [HPF] 0-4 [facility] Basophils Auto (Bld) [#/Vol] Ordered By: Romel Davis on 09-05-2023 Basophils (Bld) [#/Vol] 0.0 10*3/uL 0.0-0.2 [facility] Basophils/100 WBC Auto (Bld) Ordered By: Romel Davis on 09-05-2023 Basophils/100 WBC (Bld) 0.6 % . [facility] Bilirubin Test strip Ql (U)O rdered By: Romel Davis on 09-05-2023 Bilirubin Ql (U) Negative Negative [facility] Bilirubin.total [Mass/volume ] in Serum or PlasmaOrdered By: Romel Davis on 09-05-2023 Bilirubin [Mass/Vol] 0.8 mg/dL 0.3-1.0 [facility] Calcium [Mass/volume] in Ser um or PlasmaOrdered By: Romel Davis on 09-05-2023 Calcium [Mass/Vol] 9.2 mg/dL 8.6-10.3 [facility] Carbon dioxide, total [Moles /volume] in Serum or PlasmaOrdered By: Romel Davis on 09-05-2023 CO2 [Moles/Vol] 27.9 mmol/L 21.0-31.0 [facility] Chloride [Moles/volume] in S ace or PlasmaOrdered By: Romel Davis on 09-05-2023 Chloride [Moles/Vol] 107 mmol/L 98-107 [facility] Color Auto (U)Ordered By: Bridgett Davis on 09-05-2023 Color (U) Yellow Yellow [facility] Creatinine [Mass/volume] in Serum or PlasmaOrdered By: Romel Davis on 09-05-2023 Creatinine [Mass/Vol] 0.88 mg/dL 0.70-1.30 [facility] Eosinophils Auto (Bld) [#/Vo l]Ordered By: Romel Davis on 09-05-2023 Eosinophils (Bld) [#/Vol] 0.1 10*3/uL 0.0-0.45 [facility] Eosinophils/100 WBC Auto (Bl d)Ordered By: Romel Davis on 09-05-2023 Eosinophils/100 WBC (Bld) 0.9 % . [facility] Erythrocyte distribution wid th Auto (RBC) [Ratio]Ordered By: Romel Davis on 09-05-2023 Erythrocyte distribution width (RBC) [Ratio] 14.1 % 12.0-14.8 [facility] Erythrocyte sedimentation ra te by Photometric methodOrdered By: Romel Davis on 09-05-2023 ESR Photometric method (Bld) [Velocity] 3 mm/hr 0-19 [facility] Globulin Calc (S) [Mass/Vol] Ordered By: Romel Davis on 09-05-2023 Globulin (S) [Mass/Vol] 1.9 g/dL [facility] Glucose [Mass/volume] in Ser um or PlasmaOrdered By: Romel Davis on 09-05-2023 Glucose [Mass/Vol] 75 mg/dL 70-100 [facility] Comment on above: ADA recommended refe rence rangeRandom Glucose Reference Range is dependent on time and content of last meal. Glucose of more than 200 mg/dL in a nonstressed, ambulatory subject supports the diagnosis of Diabetes Mellitus. Hematocrit Auto (Bld) [Volum e fraction]Ordered By: Romel Davis on 09-05-2023 Hematocrit (Bld) [Volume fraction] 44.5 % 38.8-50.0 [facility] Hemoglobin [Mass/volume] in BloodOrdered By: Romel Davis on 09-05-2023 Hemoglobin (Bld) [Mass/Vol] 15.2 g/dL 13.0-17.0 [facility] Ketones Auto test strip (U) [Mass/Vol]Ordered By: Romel Davis on 09-05-2023 Ketones (U) [Mass/Vol] Trace Negative [facility] - UrinalysisOrder ed By: Romel Davis on 09-05-2023 Hyaline casts LM Ql (Urine sed) None seen [LPF] 0-8 [facility] Leukocytes [#/volume] correc nat for nucleated erythrocytes in Blood by Automated counOrdered By: Romel Davis on 09-05-2023 WBC corrected for nucl RBC Auto (Bld) [#/Vol] 5.9 10*3/uL 4.1-10.5 [facility] Lymphocytes Auto (Bld) [#/Vo l]Ordered By: Romel Davis on 09-05-2023 Lymphocytes (Bld) [#/Vol] 1.1 10*3/uL 1.00-4.8 [facility] Lymphocytes/100 WBC Auto (Bl d)Ordered By: Romel Davis on 09-05-2023 Lymphocytes/100 WBC (Bld) 17.7 % . [facility] MCH Auto (RBC) [Entitic mass ]Ordered By: Romel Davis on 09-05-2023 MCH (RBC) [Entitic mass] 30.7 pg 27.5-35.2 [facility] MCHC Auto (RBC) [Mass/Vol]Or dered By: Romel Mendezrow on 09-05-2023 MCHC (RBC) [Mass/Vol] 34.2 g/dL 32.5-35.6 [facility] MCV Auto (RBC) [Entitic vol] Ordered By: Romel Davis on 09-05-2023 MCV (RBC) [Entitic vol] 89.9 fL 83.5-101 [facility] Monocytes Auto (Bld) [#/Vol] Ordered By: Romel Mendezrow on 09-05-2023 Monocytes (Bld) [#/Vol] 0.6 10*3/uL 0.0-0.8 [facility] Monocytes/100 WBC Auto (Bld) Ordered By: Romel Ryan on 09-05-2023 Monocytes/100 WBC (Bld) 10.3 % . [facility] Neutrophils Auto (Bld) [#/Vo l]Ordered By: Romel Mendezrow on 09-05-2023 Neutrophils (Bld) [#/Vol] 4.2 10*3/uL 1.8-7.7 [facility] Neutrophils/100 WBC Auto (Bl d)Ordered By: Romel Ryan on 09-05-2023 Neutrophils/100 WBC (Bld) 70.5 % . [facility] Nitrite Test strip Ql (U)Ord ered By: Romel Mendezrow on 09-05-2023 Nitrite Ql (U) Negative Negative [facility] No Panel InformationOrdered By: Romel Mendezrow on 09-05-2023 Estimated GFR (CKD-EPI) > 60.0 mL/Min [facility] Creatinine Clearance (Chem N/A [facility] Total Complement (CH50) 57 U/mL >41 [facility] Comment on above: Age Male Female [...] to determine out of range values.Performed at: [address] [id number] Director: Richy Ardon PhD, Phone: [phone] Nucleated erythrocytes [Pres ence] in Blood by Automated countOrdered By: Romel Davis on 09-05-2023 Nucleated RBC Auto Ql (Bld) 0.1 /100{WBC} 0-0.5 [facility] Platelet mean volume Auto (B ld) [Entitic vol]Ordered By: Romel Davis on 09-05-2023 Platelet mean volume (Bld) [Entitic vol] 8.9 fL 6.6-10.1 [facility] Platelets Auto (Bld) [#/Vol] Ordered By: Romel Davis on 09-05-2023 Platelets (Bld) [#/Vol] 175 10*3/uL 150-450 [facility] Potassium [Moles/volume] in Serum or PlasmaOrdered By: Romel Davis on 09-05-2023 Potassium [Moles/Vol] 4.1 mmol/L 3.5-5.1 [facility] Protein Auto test strip (U) [Mass/Vol]Ordered By: Romel Davis on 09-05-2023 Protein (U) [Mass/Vol] Negative Negative [facility] Protein [Mass/volume] in Ser um or PlasmaOrdered By: Romel Davis on 09-05-2023 Protein [Mass/Vol] 6.1 g/dL 6.4-8.9 [facility] RBC Auto (Bld) [#/Vol]Ordere d By: Romel Davis on 09-05-2023 RBC (Bld) [#/Vol] 4.96 10*6/uL 3.90-5.60 [facility] Serum or plasma albumin/glob ulin mass ratioOrdered By: Romel Davis on 09-05-2023 Albumin/Globulin [Mass ratio] 2.2 {ratio} [facility] Serum or plasma anion gap de terminationOrdered By: Romel Davis on 09-05-2023 Anion gap [Moles/Vol] 10.2 mmol/L 6.0-15.0 [facility] Serum or plasma complement C 3 measurement (mass/volume)Ordered By: Romel Davis on 09-05-2023 Complement C3 [Mass/Vol] 124 mg/dL 82-167 [facility] Comment on above: Performed at: - [address] [id number] Director: Richy Ardon PhD, Phone: [phone] Serum or plasma complement C 4 measurement (mass/volume)Ordered By: Romel Davis on 09-05-2023 Complement C4 [Mass/Vol] 15 mg/dL 12-38 [facility] Sodium [Moles/volume] in Ser um or PlasmaOrdered By: Romel Davis on 09-05-2023 Sodium [Moles/Vol] 141 mmol/L 136-145 [facility] Specific gravity Auto test s trip (U) [Rel density]Ordered By: Romel Davis on 09-05-2023 Specific gravity (U) [Rel density] 1.025 1.001-1.03 0 [facility] Squamous epithelial cells de tection in urine sediment by light microscopyOrdered By: Romel Davis on 09-05-2023 Epithelial cells.squamous LM Ql (Urine sed) None seen [HPF] 0-2 [facility] Urea nitrogen [Mass/volume] in Serum or PlasmaOrdered By: Romel Davis on 09-05-2023 Urea nitrogen [Mass/Vol] 19 mg/dL 7-25 [facility] Urine bacteria detection by automated methodOrdered By: Romel Davis on 09-05-2023 Bacteria Auto Ql (U) None seen None Seen [facility] Urine clarity by refractomet ry automatedOrdered By: Romel Davis on 09-05-2023 Clarity Refractometry automated (U) Clear Clear [facility] Urine glucose measurement by automated test strip (mass/volume)Ordered By: Romel Davis on 09-05-2023 Glucose Auto test strip (U) [Mass/Vol] Normal mg/dL Normal [facility] Urine hemoglobin detection b y automated test stripOrdered By: Romel Davis on 09-05-2023 Hemoglobin Auto test strip Ql (U) Negative Negative [facility] Urine leukocyte esterase det ection by automated test stripOrdered By: Romel Davis on 09-05-2023 Leukocyte esterase Auto test strip Ql (U) Negative Negative [facility] Urobilinogen Auto test strip (U) [Mass/Vol]Ordered By: Romel Davis on 09-05-2023 Urobilinogen (U) [Mass/Vol] Normal mg/dL Normal [facility] WBC Auto (Bld) [#/Vol]Ordere d By: Romel Davis on 09-05-2023 WBC (Bld) [#/Vol] 5.9 10*3/uL 4.1-10.5 [facility] pH Auto test strip (U)Ordere d By: Romel Davis on 09-05-2023 pH (U) 5.5 [pH] 5.0-9.0 [facility] 24 hour urine sodium measure ment (moles/time)Ordered By: Zac Muniz on 08-16-2023 Sodium (24H U) [Moles/Time] 181 mmol/24 40-220 [facility] 24 hour urine uric acid ophelia urement (mass/time)Ordered By: Zac Muniz on 08-16-2023 Urate (24H U) [Mass/Time] 674.9 mg/24 hr 182.4-936. 8 [facility] Comment on above: Performed at: [address] Director: Richy Ardon PhD, Phone: [phone] CT biopsyOrdered By: Zac Muniz on 08-16-2023 CT biopsy 24 Hours [facility] Calcium [Mass/time] in 24 ho ur UrineOrdered By: Zac Muniz on 08-16-2023 Calcium (24H U) [Mass/Time] 98 mg/24 hr 0-320 [facility] Calcium [Mass/volume] in 24 hour UrineOrdered By: Zac Muniz on 08-16-2023 Calcium (24H U) [Mass/Vol] 3.3 mg/dL Not Estab. [facility] Calcium [Mass/volume] in Ser um or PlasmaOrdered By: Zac Muniz on 08-16-2023 Calcium [Mass/Vol] 9.2 mg/dL 8.6-10.3 [facility] Carbon dioxide, total [Moles /volume] in Serum or PlasmaOrdered By: Zac Muniz on 08-16-2023 CO2 [Moles/Vol] 22.4 mmol/L 21.0-31.0 [facility] Chloride [Moles/volume] in S ace or PlasmaOrdered By: Zac Muniz on 08-16-2023 Chloride [Moles/Vol] 108 mmol/L 98-107 [facility] Creatinine [Mass/volume] in Serum or PlasmaOrdered By: Zac Muniz on 08-16-2023 Creatinine [Mass/Vol] 0.88 mg/dL 0.70-1.30 [facility] Creatinine [Mass/volume] in UrineOrdered By: Zac Muniz on 08-16-2023 Creatinine (U) [Mass/Vol] 57.00 mg/dL 14.00-26.0 0 [facility] Magnesium [Mass/time] in 24 hour UrineOrdered By: Zac Muniz on 08-16-2023 Magnesium (24H U) [Mass/Time] 97.7 mg/24 hr 12.0-293.0 [facility] Magnesium [Mass/volume] in U rineOrdered By: Zac Muniz on 08-16-2023 Magnesium (U) [Mass/Vol] 3.3 mg/dL Not Estab. [facility] No Panel InformationOrdered By: Zac Muniz on 08-16-2023 Estimated GFR (CKD-EPI) > 60.0 mL/Min [facility] Creatinine Clearance (Chem N/A [facility] Urine Citric Acid 219 mg/L Undefined [facility] Comment on above: This test was develo ped and its performance characteristicsdetermined by [facility]. It has not been cleared orapproved by the Food and Drug Administration. Urine Citric Acid 24 Hour 648 mg/24 hr 320-1240 [facility] Comment on above: Performed at: [address] [id number] Director: Kaley Joaquin MD, Phone: [phone] Urine Creatinine 24 Hour 1.68 g/24 hr 1.00-2.09 [facility] Oxalate [Mass/time] in 24 ho ur UrineOrdered By: Zac Muniz on 08-16-2023 Oxalate (24H U) [Mass/Time] 18 mg/24 hr 7-44 [facility] Oxalate [Mass/volume] in Uri neOrdered By: Zac Muniz on 08-16-2023 Oxalate (U) [Mass/Vol] 6 mg/L Undefined [facility] Parathyrin.intact [Mass/volu me] in Serum or PlasmaOrdered By: Zac Muniz on 08-16-2023 Parathyrin.intact [Mass/Vol] 53.9 pg/mL 12 [facility] Phosphate [Mass/time] in 24 hour UrineOrdered By: Zac Muniz on 08-16-2023 Phosphate (24H U) [Mass/Time] 462 mg/24 hr 390-1425 [facility] Phosphate [Mass/volume] in U rineOrdered By: Zac Muniz on 08-16-2023 Phosphate (U) [Mass/Vol] 15.6 mg/dL Not Estab. [facility] Potassium [Moles/volume] in Serum or PlasmaOrdered By: Zac Muniz on 08-16-2023 Potassium [Moles/Vol] 4.0 mmol/L 3.5-5.1 [facility] Serum or plasma anion gap de terminationOrdered By: Zac Muniz on 08-16-2023 Anion gap [Moles/Vol] 12.6 mmol/L 6.0-15.0 [facility] Sodium [Moles/volume] in Ser um or PlasmaOrdered By: Zac Muniz on 08-16-2023 Sodium [Moles/Vol] 139 mmol/L 136-145 [facility] Sodium [Moles/volume] in Uri neOrdered By: Zac Muniz on 08-16-2023 Sodium (U) [Moles/Vol] 61.0 mmol/L [facility] Comment on above: No reference range e stablished Urate [Mass/volume] in Serum or PlasmaOrdered By: Zac Muniz on 08-16-2023 Urate [Mass/Vol] 4.3 mg/dL 4.4-7.6 [facility] Urea nitrogen [Mass/volume] in Serum or PlasmaOrdered By: Zac Muniz on 08-16-2023 Urea nitrogen [Mass/Vol] 22 mg/dL 7-25 [facility] Urine uric acid measurement (mass/volume)Ordered By: Zac Muniz on 08-16-2023 Urate (U) [Mass/Vol] 22.8 mg/dL Not Estab. [facility] Urine volume measurementOrde red By: Zac Muniz on 08-16-2023 Specimen volume (U) 2960 ml [facility] Alanine aminotransferase [En zymatic activity/volume] in Serum or PlasmaOrdered By: Zac Muniz on 05-31-2023 ALT [Catalytic activity/Vol] 34 U/L 7-52 [facility] Albumin [Mass/volume] in Ser um or Plasma by Bromocresol green (BCG) dye binding methoOrdered By: Zac Muniz on 05-31-2023 Albumin BCG dye [Mass/Vol] 4.4 g/dL 3.5-5.7 [facility] Alkaline phosphatase [Enzyma tic activity/volume] in Serum or PlasmaOrdered By: Zac Muniz on 05-31-2023 ALP [Catalytic activity/Vol] 82 U/L 34-104 [facility] Aspartate aminotransferase [ Enzymatic activity/volume] in Serum or PlasmaOrdered By: Zac Muniz on 05-31-2023 AST [Catalytic activity/Vol] 24 U/L 13-39 [facility] Automated erythrocytes count in urine sediment (number/area)Ordered By: Christine Sanchez on 05-31-2023 RBC Auto (Urine sed) [#/Area] 1-2 [HPF] 0-4 [facility] Automated leukocytes count i n urine sediment (number/area)Ordered By: Christine Sanchez on 05-31-2023 WBC Auto (Urine sed) [#/Area] 0-1 [HPF] 0-4 [facility] Basophils Auto (Bld) [#/Vol] Ordered By: Christine Sanchez on 05-31-2023 Basophils (Bld) [#/Vol] 0.0 10*3/uL 0.0-0.2 [facility] Basophils/100 WBC Auto (Bld) Ordered By: Christine Sanchez on 05-31-2023 Basophils/100 WBC (Bld) 0.8 % . [facility] Bilirubin Test strip Ql (U)O rdered By: Christine Sanchez on 05-31-2023 Bilirubin Ql (U) Negative Negative [facility] Bilirubin.total [Mass/volume ] in Serum or PlasmaOrdered By: Zac Muniz on 05-31-2023 Bilirubin [Mass/Vol] 0.8 mg/dL 0.3-1.0 [facility] Calcium [Mass/volume] in Ser um or PlasmaOrdered By: Zac Muniz on 05-31-2023 Calcium [Mass/Vol] 9.1 mg/dL 8.6-10.3 [facility] Carbon dioxide, total [Moles /volume] in Serum or PlasmaOrdered By: Zac Muniz on 05-31-2023 CO2 [Moles/Vol] 24.0 mmol/L 21.0-31.0 [facility] Chloride [Moles/volume] in S ace or PlasmaOrdered By: Zac Muniz on 05-31-2023 Chloride [Moles/Vol] 106 mmol/L 98-107 [facility] Color Auto (U)Ordered By: Marianna Arellano on 05-31-2023 Color (U) Yellow Yellow [facility] Creatinine [Mass/volume] in Serum or PlasmaOrdered By: Zac Muniz on 05-31-2023 Creatinine [Mass/Vol] 1.05 mg/dL 0.70-1.30 [facility] Eosinophils Auto (Bld) [#/Vo l]Ordered By: Christine Sanchez on 05-31-2023 Eosinophils (Bld) [#/Vol] 0.1 10*3/uL 0.0-0.45 [facility] Eosinophils/100 WBC Auto (Bl d)Ordered By: Christine Sanchez on 05-31-2023 Eosinophils/100 WBC (Bld) 1.4 % . [facility] Erythrocyte distribution wid th Auto (RBC) [Ratio]Ordered By: Christine Sanchez on 05-31-2023 Erythrocyte distribution width (RBC) [Ratio] 14.9 % 12.0-14.8 [facility] Erythrocyte sedimentation ra te by Photometric methodOrdered By: Christine Sanchez on 05-31-2023 ESR Photometric method (Bld) [Velocity] 6 mm/hr 0-19 [facility] Globulin Calc (S) [Mass/Vol] Ordered By: Zac Muniz on 05-31-2023 Globulin (S) [Mass/Vol] 2.3 g/dL [facility] Glucose [Mass/volume] in Ser um or PlasmaOrdered By: Zac Muniz on 05-31-2023 Glucose [Mass/Vol] 82 mg/dL 70-100 [facility] Comment on above: ADA recommended refe rence rangeRandom Glucose Reference Range is dependent on time and content of last meal. Glucose of more than 200 mg/dL in a nonstressed, ambulatory subject supports the diagnosis of Diabetes Mellitus. Hematocrit Auto (Bld) [Volum e fraction]Ordered By: Christine Sanchez on 05-31-2023 Hematocrit (Bld) [Volume fraction] 43.1 % 38.8-50.0 [facility] Hemoglobin [Mass/volume] in BloodOrdered By: Christine Sanchez on 05-31-2023 Hemoglobin (Bld) [Mass/Vol] 14.9 g/dL 13.0-17.0 [facility] Ketones Auto test strip (U) [Mass/Vol]Ordered By: Christine Sanchez on 05-31-2023 Ketones (U) [Mass/Vol] Trace Negative [facility] - UrinalysisOrder ed By: Christine Sanchez on 05-31-2023 Hyaline casts LM Ql (Urine sed) 0-8 [LPF] 0-8 [facility] Leukocytes [#/volume] correc nat for nucleated erythrocytes in Blood by Automated counOrdered By: Christine Sanchez on 05-31-2023 WBC corrected for nucl RBC Auto (Bld) [#/Vol] 5.5 10*3/uL 4.1-10.5 [facility] Lymphocytes Auto (Bld) [#/Vo l]Ordered By: Christine Sanchez on 05-31-2023 Lymphocytes (Bld) [#/Vol] 1.3 10*3/uL 1.00-4.8 [facility] Lymphocytes/100 WBC Auto (Bl d)Ordered By: Christine Sanchez on 05-31-2023 Lymphocytes/100 WBC (Bld) 24.3 % . [facility] MCH Auto (RBC) [Entitic mass ]Ordered By: Christine Sanchez on 05-31-2023 MCH (RBC) [Entitic mass] 30.8 pg 27.5-35.2 [facility] MCHC Auto (RBC) [Mass/Vol]Or dered By: Christine Sanchez on 05-31-2023 MCHC (RBC) [Mass/Vol] 34.6 g/dL 32.5-35.6 [facility] MCV Auto (RBC) [Entitic vol] Ordered By: Christine Sanchez on 05-31-2023 MCV (RBC) [Entitic vol] 89.1 fL 83.5-101 [facility] Monocytes Auto (Bld) [#/Vol] Ordered By: Christine Sanchez on 05-31-2023 Monocytes (Bld) [#/Vol] 0.7 10*3/uL 0.0-0.8 [facility] Monocytes/100 WBC Auto (Bld) Ordered By: Christine Sanchez on 05-31-2023 Monocytes/100 WBC (Bld) 12.9 % . [facility] Neutrophils Auto (Bld) [#/Vo l]Ordered By: Christine Sanchez on 05-31-2023 Neutrophils (Bld) [#/Vol] 3.3 10*3/uL 1.8-7.7 [facility] Neutrophils/100 WBC Auto (Bl d)Ordered By: Christine Sanchez on 05-31-2023 Neutrophils/100 WBC (Bld) 60.6 % . [facility] Nitrite Test strip Ql (U)Ord ered By: Christine Sanchez on 05-31-2023 Nitrite Ql (U) Negative Negative [facility] No Panel InformationOrdered By: Zac Muniz on 05-31-2023 Estimated GFR (CKD-EPI) > 60.0 mL/Min [facility] Creatinine Clearance (Chem N/A [facility] No Panel InformationOrdered By: Christine Sanchez on 05-31-2023 Total Complement (CH50) 60 U/mL >41 [facility] Comment on above: Age Male Female [...] to determine out of range values.Performed at: [facility] [id number] Director: Richy Ardon PhD, Phone: [phone] Nucleated erythrocytes [Pres ence] in Blood by Automated countOrdered By: Christine Sanchez on 05-31-2023 Nucleated RBC Auto Ql (Bld) 0.1 /100{WBC} 0-0.5 [facility] Platelet mean volume Auto (B ld) [Entitic vol]Ordered By: Christine Sanchez on 05-31-2023 Platelet mean volume (Bld) [Entitic vol] 8.4 fL 6.6-10.1 [facility] Platelets Auto (Bld) [#/Vol] Ordered By: Christine Sanchez on 05-31-2023 Platelets (Bld) [#/Vol] 178 10*3/uL 150-450 [facility] Potassium [Moles/volume] in Serum or PlasmaOrdered By: Zac Muniz on 05-31-2023 Potassium [Moles/Vol] 4.4 mmol/L 3.5-5.1 [facility] Protein Auto test strip (U) [Mass/Vol]Ordered By: Christine Sanchez on 05-31-2023 Protein (U) [Mass/Vol] Trace mg/dL Negative [facility] Protein [Mass/volume] in Ser um or PlasmaOrdered By: Zac Muniz on 05-31-2023 Protein [Mass/Vol] 6.7 g/dL 6.4-8.9 [facility] RBC Auto (Bld) [#/Vol]Ordere d By: Christine Sanchez on 05-31-2023 RBC (Bld) [#/Vol] 4.84 10*6/uL 3.90-5.60 [facility] Serum or plasma albumin/glob ulin mass ratioOrdered By: Zac Muniz on 05-31-2023 Albumin/Globulin [Mass ratio] 1.9 {ratio} [facility] Serum or plasma anion gap de terminationOrdered By: Zac Muniz on 05-31-2023 Anion gap [Moles/Vol] 11.4 mmol/L 6.0-15.0 [facility] Serum or plasma complement C 3 measurement (mass/volume)Ordered By: Christine Sanchez on 05-31-2023 Complement C3 [Mass/Vol] 132 mg/dL 82-167 [facility] Comment on above: Performed at: [place] [id number] Director: Richy Ardon PhD, Phone: [phone] Serum or plasma complement C 4 measurement (mass/volume)Ordered By: Christine Sanchez on 05-31-2023 Complement C4 [Mass/Vol] 16 mg/dL 12-38 [facility] Sodium [Moles/volume] in Ser um or PlasmaOrdered By: Zac Muniz on 05-31-2023 Sodium [Moles/Vol] 137 mmol/L 136-145 [facility] Specific gravity Auto test s trip (U) [Rel density]Ordered By: Christine Sanchez on 05-31-2023 Specific gravity (U) [Rel density] 1.023 1.001-1.03 0 [facility] Squamous epithelial cells de tection in urine sediment by light microscopyOrdered By: Christine Sanchez on 05-31-2023 Epithelial cells.squamous LM Ql (Urine sed) None seen [HPF] 0-2 [facility] Urea nitrogen [Mass/volume] in Serum or PlasmaOrdered By: Zac Muniz on 05-31-2023 Urea nitrogen [Mass/Vol] 28 mg/dL 7-25 [facility] Urine bacteria detection by automated methodOrdered By: Christine Sanchez on 05-31-2023 Bacteria Auto Ql (U) None seen None Seen [facility] Urine clarity by refractomet ry automatedOrdered By: Christine Sanchez on 05-31-2023 Clarity Refractometry automated (U) Clear Clear [facility] Urine glucose measurement by automated test strip (mass/volume)Ordered By: Christine Sanchez on 05-31-2023 Glucose Auto test strip (U) [Mass/Vol] Normal mg/dL Normal [facility] Urine hemoglobin detection b y automated test stripOrdered By: Christine Sanchez on 05-31-2023 Hemoglobin Auto test strip Ql (U) Negative Negative [facility] Urine leukocyte esterase det ection by automated test stripOrdered By: Christine Sanchez on 05-31-2023 Leukocyte esterase Auto test strip Ql (U) Negative Negative [facility] Urobilinogen Auto test strip (U) [Mass/Vol]Ordered By: Christine Sanchez on 05-31-2023 Urobilinogen (U) [Mass/Vol] Normal mg/dL Normal [facility] WBC Auto (Bld) [#/Vol]Ordere d By: Christine Sanchez on 05-31-2023 WBC (Bld) [#/Vol] 5.5 10*3/uL 4.1-10.5 [facility] pH Auto test strip (U)Ordere d By: Christine Sanchez on 05-31-2023 pH (U) 5.5 [pH] 5.0-9.0 [facility] Ammonium urate crystals dete ction in stone by infrared spectroscopyOrdered By: Zac Muniz on 05-18-2023 Ammonium urate crystals Infrared spectroscopy Ql (Stone) N/A [facility] Calcium bilirubinate measure mentOrdered By: Zac Muniz on 05-18-2023 Calcium bilirubinate (Stone) [Mass fraction] N/A [facility] Calcium carbonate measuremen tOrdered By: Zac Muniz on 05-18-2023 Calcium carbonate (Stone) [Mass fraction] N/A [facility] Calcium hydrogen phosphate d ihydrate/Total in StoneOrdered By: Zac Muniz on 05-18-2023 Calcium hydrogen phosphate dihydrate (Stone) [Mass fraction] N/A [facility] Calcium oxalate dihydrate cr ystals detection in stone by infrared spectroscopyOrdered By: Zac Muniz on 05-18-2023 Calcium oxalate dihydrate crystals Infrared spectroscopy Ql (Stone) N/A [facility] Calcium oxalate monohydrate/ Total in StoneOrdered By: Zac Muniz on 05-18-2023 Calcium oxalate monohydrate (Stone) [Mass fraction] N/A [facility] Calcium phosphate measuremen tOrdered By: Zac Muniz on 05-18-2023 Calcium phosphate (Stone) [Mass fraction] N/A [facility] Calculus analysis interpreta tion in stoneOrdered By: Zac Muniz on 05-18-2023 Calculus analysis [Interp] N/A [facility] Calculus analysis [Interp] See comment . [facility] Comment on above: Physician questions regarding Calculi Analysis [facility] at: [phone]. Calculi report will follow via computer, mail or courierdelivery. Calculus analysis with calcu silva photography interpretation in stoneOrdered By: Zac Muniz on 05-18-2023 Calculus analysis with calculus photography [Interp] See comment . [facility] Comment on above: Photograph will foll ow under a separate cover Cellular material measuremen t in stone by estimated (mass/mass)Ordered By: Zac Muniz on 05-18-2023 Cellular material Est (Stone) [Mass/Mass] N/A [facility] Cholesterol/Total in StoneOr dered By: Zac Muniz on 05-18-2023 Cholesterol (Stone) [Mass fraction] N/A [facility] Composition of stoneOrdered By: Zac Muniz on 05-18-2023 Composition Nom (Stone) See comment . [facility] Comment on above: Percentage (Represen ts the % composition) Cystine measurementOrdered B y: Zac Muniz on 05-18-2023 Cystine (Unsp spec) [Moles/Vol] N/A [facility] Determination of color of ca lculusOrdered By: Zac Muniz on 05-18-2023 Color (Stone) Alexander . [facility] Hydroxyapatite [Energy Diffe rence] in 24 hour UrineOrdered By: Zac Muniz on 05-18-2023 Hydroxyapatite (24H U) [Energy diff] N/A [facility] Measurement of proportion of calculus composed of dried blood (mass/mass)Ordered By: Zac Muniz on 05-18-2023 Blood.dried (Stone) [Mass fraction] N/A [facility] Newberyite/Total in StoneOrd ered By: Zac Muniz on 05-18-2023 Newberyite (Stone) [Mass fraction] N/A [facility] No Panel InformationOrdered By: Zac Muniz on 05-18-2023 Stone 2,8 Dihydroxyadenine N/A [facility] Stone Analysis Disclaimer See comment . [facility] Comment on above: This test was develo ped and its performance characteristicsdetermined by [employer]. It has not been cleared or approvedby the Food and Drug Administration.Performed at: [facility] [address] [id number] Director: Jimmy Warner PhD, Phone: [phone] Stone Bilirubinate N/A [facility] Stone Calcium Palmitate N/A [facility] Stone Calcium Stearate N/A [facility] Stone Carbonate Apatite N/A [facility] Stone Drug or Metabolite N/A [facility] Stone Other Constituent N/A [facility] Stone Xanthine N/A [facility] Size [Entitic volume] of Sto neOrdered By: Zac Muniz on 05-18-2023 Size (Stone) [Entitic vol] 4x4 mm . [facility] Comment on above: Multiple pieces rece ived. Dimensions of the largest piecereported. Sodium urate crystals detect ion in stone by infrared spectroscopyOrdered By: Zac Muniz on 05-18-2023 Sodium urate crystals Infrared spectroscopy Ql (Stone) N/A [facility] Specimen source subject [Typ e]Ordered By: Zac Muniz on 05-18-2023 Specimen source subject Nom See comment . [facility] Comment on above: Not provided Triamterene measurement in c alculusOrdered By: Zac Muniz on 05-18-2023 Triamterene (Stone) [Mass fraction] N/A [facility] Triple phosphate/Total in St oneOrdered By: Zac Muniz on 05-18-2023 Triple phosphate (Stone) [Mass fraction] N/A [facility] Uric acid dihydrate crystals detection in stone by infrared spectroscopyOrdered By: Zac Muniz on 05-18-2023 Urate dihydrate crystals Infrared spectroscopy Ql (Stone) 100 % . [facility] Urate dihydrate crystals Infrared spectroscopy Ql (Stone) N/A [facility] Tobacco Screening.on 023 Adult depression screening assessment No [facility] manda [address] DO Work Phone: Fall risk assessment a) No falls within the last year [facility] manda 250 DO Work Phone: Tobacco use status CPHS b) No [facility] DO Work Phone: Automated erythrocytes count in urine sediment (number/area)Ordered By: Romel Orta on 05-07-2023 RBC Auto (Urine sed) [#/Area] 1-2 [HPF] 0-4 [facility] Automated leukocytes count i n urine sediment (number/area)Ordered By: Romel Orta on 05-07-2023 WBC Auto (Urine sed) [#/Area] 3-4 [HPF] 0-4 [facility] Basophils Auto (Bld) [#/Vol] Ordered By: Romel Orta on 05-07-2023 Basophils (Bld) [#/Vol] 0.1 10*3/uL 0.0-0.2 [facility] Basophils/100 WBC Auto (Bld) Ordered By: Romel Orta on 05-07-2023 Basophils/100 WBC (Bld) 0.6 % . [facility] Bilirubin Test strip Ql (U)O rdered By: Romel Orta on 05-07-2023 Bilirubin Ql (U) Negative Negative [facility] Calcium [Mass/volume] in Ser um or PlasmaOrdered By: Romel Orta on 05-07-2023 Calcium [Mass/Vol] 8.8 mg/dL 8.6-10.3 [facility] Carbon dioxide, total [Moles /volume] in Serum or PlasmaOrdered By: Romel Orta on 06-17-2023 CO2 [Moles/Vol] 20.8 mmol/L 21.0-31.0 [facility] Chloride [Moles/volume] in S ace or PlasmaOrdered By: Romel Orta on 05-07-2023 Chloride [Moles/Vol] 105 mmol/L 98-107 [facility] Color Auto (U)Ordered By: Bridgett nasreen Marivel on 05-07-2023 Color (U) Yellow Yellow [facility] Creatinine [Mass/volume] in Serum or PlasmaOrdered By: Romel Orta on 05-07-2023 Creatinine [Mass/Vol] 1.94 mg/dL 0.70-1.30 [facility] Eosinophils Auto (Bld) [#/Vo l]Ordered By: Romel Orta on 05-07-2023 Eosinophils (Bld) [#/Vol] 0.1 10*3/uL 0.0-0.45 [facility] Eosinophils/100 WBC Auto (Bl d)Ordered By: Romel Orta on 05-07-2023 Eosinophils/100 WBC (Bld) 1.1 % . [facility] Erythrocyte distribution wid th Auto (RBC) [Ratio]Ordered By: Romel Orta on 05-07-2023 Erythrocyte distribution width (RBC) [Ratio] 14.3 % 12.0-14.8 [facility] Glucose [Mass/volume] in Ser um or PlasmaOrdered By: Romel Orta on 05-07-2023 Glucose [Mass/Vol] 98 mg/dL 70-100 [facility] Comment on above: ADA recommended refe rence rangeRandom Glucose Reference Range is dependent on time and content of last meal. Glucose of more than 200 mg/dL in a nonstressed, ambulatory subject supports the diagnosis of Diabetes Mellitus. Hematocrit Auto (Bld) [Volum e fraction]Ordered By: Romel Orta on 05-07-2023 Hematocrit (Bld) [Volume fraction] 38.9 % 38.8-50.0 [facility] Hemoglobin [Mass/volume] in BloodOrdered By: Romel Orta on 05-07-2023 Hemoglobin (Bld) [Mass/Vol] 13.7 g/dL 13.0-17.0 [facility] Ketones Auto test strip (U) [Mass/Vol]Ordered By: Romel Orta on 05-07-2023 Ketones (U) [Mass/Vol] Trace Negative [facility] - UrinalysisOrder ed By: Romel Orta on 05-07-2023 Hyaline casts LM Ql (Urine sed) 0-8 [LPF] 0-8 [facility] Leukocytes [#/volume] correc nat for nucleated erythrocytes in Blood by Automated counOrdered By: Romel Orta on 05-07-2023 WBC corrected for nucl RBC Auto (Bld) [#/Vol] 9.9 10*3/uL 4.1-10.5 [facility] Lymphocytes Auto (Bld) [#/Vo l]Ordered By: Romel Orta on 05-07-2023 Lymphocytes (Bld) [#/Vol] 0.6 10*3/uL 1.00-4.8 [facility] Lymphocytes/100 WBC Auto (Bl d)Ordered By: Romel Orta on 05-07-2023 Lymphocytes/100 WBC (Bld) 6.2 % . [facility] MCH Auto (RBC) [Entitic mass ]Ordered By: Romel Orta on 05-07-2023 MCH (RBC) [Entitic mass] 31.3 pg 27.5-35.2 [facility] MCHC Auto (RBC) [Mass/Vol]Or dered By: Romel Orta on 05-07-2023 MCHC (RBC) [Mass/Vol] 35.2 g/dL 32.5-35.6 [facility] MCV Auto (RBC) [Entitic vol] Ordered By: Romel Orta on 05-07-2023 MCV (RBC) [Entitic vol] 88.9 fL 83.5-101 [facility] Monocyte distribution width [Entitic volume] in Blood by AutomatedOrdered By: Romel Orta on 05-07-2023 Monocyte distribution width Auto (Bld) [Entitic vol] 22.82 % 0.00-20.00 [facility] Comment on above: For adults in ED, MD W > 20.0 may be associated with a higher risk of sepsis during the first 12 hrs of hospital admission Monocytes Auto (Bld) [#/Vol] Ordered By: Romel Orta on 05-07-2023 Monocytes (Bld) [#/Vol] 1.5 10*3/uL 0.0-0.8 [facility] Monocytes/100 WBC Auto (Bld) Ordered By: Romel Orta on 05-07-2023 Monocytes/100 WBC (Bld) 15.4 % . [facility] Neutrophils Auto (Bld) [#/Vo l]Ordered By: Romel Orta on 05-07-2023 Neutrophils (Bld) [#/Vol] 7.6 10*3/uL 1.8-7.7 [facility] Neutrophils/100 WBC Auto (Bl d)Ordered By: Romel Orta on 05-07-2023 Neutrophils/100 WBC (Bld) 76.7 % . [facility] Nitrite Test strip Ql (U)Ord ered By: Romel Orta on 05-07-2023 Nitrite Ql (U) Negative Negative [facility] No Panel InformationOrdered By: Romel Orta on 05-07-2023 Estimated GFR (CKD-EPI) 37.476 mL/Min [facility] Creatinine Clearance (Chem 41.86 [facility] Nucleated erythrocytes [Pres ence] in Blood by Automated countOrdered By: Romel Orta on 05-07-2023 Nucleated RBC Auto Ql (Bld) 0.1 /100{WBC} 0-0.5 [facility] Platelet mean volume Auto (B ld) [Entitic vol]Ordered By: Romel Orta on 05-07-2023 Platelet mean volume (Bld) [Entitic vol] 8.3 fL 6.6-10.1 [facility] Platelets Auto (Bld) [#/Vol] Ordered By: Romel Orta on 05-07-2023 Platelets (Bld) [#/Vol] 193 10*3/uL 150-450 [facility] Potassium [Moles/volume] in Serum or PlasmaOrdered By: Romel Orta on 05-07-2023 Potassium [Moles/Vol] 4.2 mmol/L 3.5-5.1 [facility] Protein Auto test strip (U) [Mass/Vol]Ordered By: Romel Orta on 05-07-2023 Protein (U) [Mass/Vol] Negative Negative Fi [facility] RBC Auto (Bld) [#/Vol]Ordere d By: Romel Orta on 05-07-2023 RBC (Bld) [#/Vol] 4.38 10*6/uL 3.90-5.60 [facility] Serum or plasma anion gap de terminationOrdered By: Romel Orta on 05-07-2023 Anion gap [Moles/Vol] 15.4 mmol/L 6.0-15.0 [facility] Sodium [Moles/volume] in Ser um or PlasmaOrdered By: Romel Orta on 05-07-2023 Sodium [Moles/Vol] 137 mmol/L 136-145 [facility] Specific gravity Auto test s trip (U) [Rel density]Ordered By: Romel Orta on 05-07-2023 Specific gravity (U) [Rel density] 1.028 1.001-1.03 0 [facility] Squamous epithelial cells de tection in urine sediment by light microscopyOrdered By: Romel Orta on 05-07-2023 Epithelial cells.squamous LM Ql (Urine sed) 0-1 [HPF] 0-2 [facility] Urea nitrogen [Mass/volume] in Serum or PlasmaOrdered By: Romel Orta on 05-07-2023 Urea nitrogen [Mass/Vol] 34 mg/dL 7-25 [facility] Urine bacteria detection by automated methodOrdered By: Romel Orta on 05-07-2023 Bacteria Auto Ql (U) None seen None Seen [facility] Urine clarity by refractomet ry automatedOrdered By: Romel Orta on 05-07-2023 Clarity Refractometry automated (U) Cloudy Clear [facility] Urine glucose measurement by automated test strip (mass/volume)Ordered By: Romel Orta on 05-07-2023 Glucose Auto test strip (U) [Mass/Vol] Normal mg/dL Normal [facility] Urine hemoglobin detection b y automated test stripOrdered By: Romel Orta on 05-07-2023 Hemoglobin Auto test strip Ql (U) Negative Negative [facility] Urine leukocyte esterase det ection by automated test stripOrdered By: Romel Orta on 05-07-2023 Leukocyte esterase Auto test strip Ql (U) Negative Negative [facility] Urine sediment crystal ident ification by light microscopyOrdered By: Romel Orta on 05-07-2023 Crystals LM Nom (Urine sed) N/A [facility] Urobilinogen Auto test strip (U) [Mass/Vol]Ordered By: Romel Orta on 05-07-2023 Urobilinogen (U) [Mass/Vol] Normal mg/dL Normal [facility] WBC Auto (Bld) [#/Vol]Ordere d By: Romel Orta on 05-07-2023 WBC (Bld) [#/Vol] 9.9 10*3/uL 4.1-10.5 [facility] pH Auto test strip (U)Ordere d By: Romel Orta on 05-07-2023 pH (U) 5.0 [pH] 5.0-9.0 [facility] Alanine aminotransferase [En zymatic activity/volume] in Serum or PlasmaOrdered By: Edenilson Reinoso on 05-03-2023 ALT [Catalytic activity/Vol] 44 U/L 7-52 [facility] Albumin [Mass/volume] in Ser um or Plasma by Bromocresol green (BCG) dye binding methoOrdered By: Edenilson Reinoso on 05-03-2023 Albumin BCG dye [Mass/Vol] 4.4 g/dL 3.5-5.7 [facility] Alkaline phosphatase [Enzyma tic activity/volume] in Serum or PlasmaOrdered By: Edenilson Reinoso on 05-03-2023 ALP [Catalytic activity/Vol] 79 U/L 34-104 [facility] Aspartate aminotransferase [ Enzymatic activity/volume] in Serum or PlasmaOrdered By: Edenilson Reinoso on 05-03-2023 AST [Catalytic activity/Vol] 28 U/L 13-39 [facility] Automated erythrocytes count in urine sediment (number/area)Ordered By: Edenilson Reinoso on 05-03-2023 RBC Auto (Urine sed) [#/Area] 10-19 [HPF] 0-4 [facility] Automated leukocytes count i n urine sediment (number/area)Ordered By: Edenilson Reinoso on 05-03-2023 WBC Auto (Urine sed) [#/Area] 0-1 [HPF] 0-4 [facility] Basophils Auto (Bld) [#/Vol] Ordered By: Edenilson Reinoso on 05-03-2023 Basophils (Bld) [#/Vol] 0.0 10*3/uL 0.0-0.2 [facility] Basophils/100 WBC Auto (Bld) Ordered By: Edenilson Reinoso on 05-03-2023 Basophils/100 WBC (Bld) 0.3 % . [facility] Bilirubin Test strip Ql (U)O rdered By: Edenilson Reinoso on 05-03-2023 Bilirubin Ql (U) Negative Negative [facility] Bilirubin.direct [Mass/volum e] in Serum or PlasmaOrdered By: Edenilson Reinoso on 05-03-2023 Bilirubin.direct [Mass/Vol] 0.20 mg/dL 0.03-0.18 [facility] Bilirubin.total [Mass/volume ] in Serum or PlasmaOrdered By: Edenilson Reinoso on 05-03-2023 Bilirubin [Mass/Vol] 1.0 mg/dL 0.3-1.0 [facility] Calcium [Mass/volume] in Ser um or PlasmaOrdered By: Edenilson Reinoso on 05-03-2023 Calcium [Mass/Vol] 9.2 mg/dL 8.6-10.3 [facility] Carbon dioxide, total [Moles /volume] in Serum or PlasmaOrdered By: Edenilson Reinoso on 05-03-2023 CO2 [Moles/Vol] 21.3 mmol/L 21.0-31.0 [facility] Chloride [Moles/volume] in S ace or PlasmaOrdered By: Edenilson Reinoso on 05-03-2023 Chloride [Moles/Vol] 105 mmol/L 98-107 [facility] Color Auto (U)Ordered By: Chen Reinoso on 05-03-2023 Color (U) Yellow Yellow [facility] Creatinine [Mass/volume] in Serum or PlasmaOrdered By: Edenilson Reinoso on 05-03-2023 Creatinine [Mass/Vol] 1.51 mg/dL 0.70-1.30 [facility] Eosinophils Auto (Bld) [#/Vo l]Ordered By: Edenilson Reinoso on 05-03-2023 Eosinophils (Bld) [#/Vol] 0.0 10*3/uL 0.0-0.45 [facility] Eosinophils/100 WBC Auto (Bl d)Ordered By: Edenilson Reinoso on 05-03-2023 Eosinophils/100 WBC (Bld) 0.3 % . [facility] Erythrocyte distribution wid th Auto (RBC) [Ratio]Ordered By: Edenilson Reinoso on 05-03-2023 Erythrocyte distribution width (RBC) [Ratio] 14.9 % 12.0-14.8 [facility] Globulin Calc (S) [Mass/Vol] Ordered By: Edenilson Reinoso on 05-03-2023 Globulin (S) [Mass/Vol] 2.3 g/dL [facility] Glucose [Mass/volume] in Ser um or PlasmaOrdered By: Edenilson Reinoso on 05-03-2023 Glucose [Mass/Vol] 107 mg/dL 70-100 [facility] Comment on above: ADA recommended refe rence rangeRandom Glucose Reference Range is dependent on time and content of last meal. Glucose of more than 200 mg/dL in a nonstressed, ambulatory subject supports the diagnosis of Diabetes Mellitus. Hematocrit Auto (Bld) [Volum e fraction]Ordered By: Edenilson Reinoso on 05-03-2023 Hematocrit (Bld) [Volume fraction] 44.5 % 38.8-50.0 [facility] Hemoglobin [Mass/volume] in BloodOrdered By: Edenilson Reinoso on 05-03-2023 Hemoglobin (Bld) [Mass/Vol] 15.7 g/dL 13.0-17.0 [facility] Ketones Auto test strip (U) [Mass/Vol]Ordered By: Edenilson Reinoso on 05-03-2023 Ketones (U) [Mass/Vol] Trace Negative [facility] - UrinalysisOrder ed By: Edenilson Reinoso on 05-03-2023 Hyaline casts LM Ql (Urine sed) 0-8 [LPF] 0-8 [facility] Leukocytes [#/volume] correc nat for nucleated erythrocytes in Blood by Automated counOrdered By: Edenilson Reinoso on 05-03-2023 WBC corrected for nucl RBC Auto (Bld) [#/Vol] 13.4 10*3/uL 4.1-10.5 [facility] Lipase [Enzymatic activity/v olume] in Serum or PlasmaOrdered By: Edenilson Reinoso on 05-03-2023 Lipase [Catalytic activity/Vol] 28.0 U/L 11.0-82.0 [facility] Lymphocytes Auto (Bld) [#/Vo l]Ordered By: Edenilson Reinoso on 05-03-2023 Lymphocytes (Bld) [#/Vol] 0.6 10*3/uL 1.00-4.8 [facility] Lymphocytes/100 WBC Auto (Bl d)Ordered By: Edenilson Reinoso on 05-03-2023 Lymphocytes/100 WBC (Bld) 4.3 % . [facility] MCH Auto (RBC) [Entitic mass ]Ordered By: Edenilson Reinoso on 05-03-2023 MCH (RBC) [Entitic mass] 31.1 pg 27.5-35.2 [facility] MCHC Auto (RBC) [Mass/Vol]Or dered By: Edenilson Reinoso on 05-03-2023 MCHC (RBC) [Mass/Vol] 35.4 g/dL 32.5-35.6 [facility] MCV Auto (RBC) [Entitic vol] Ordered By: Edenilson Reinoso on 05-03-2023 MCV (RBC) [Entitic vol] 87.9 fL 83.5-101 [facility] Monocyte distribution width [Entitic volume] in Blood by AutomatedOrdered By: Edenilson Reinoso on 05-03-2023 Monocyte distribution width Auto (Bld) [Entitic vol] 24.56 % 0.00-20.00 [facility] Comment on above: For adults in ED, MD W > 20.0 may be associated with a higher risk of sepsis during the first 12 hrs of hospital admission Monocytes Auto (Bld) [#/Vol] Ordered By: Edenilson Reinoso on 05-03-2023 Monocytes (Bld) [#/Vol] 1.5 10*3/uL 0.0-0.8 [facility] Monocytes/100 WBC Auto (Bld) Ordered By: Edenilson Reinoso on 05-03-2023 Monocytes/100 WBC (Bld) 11.0 % . [facility] Neutrophils Auto (Bld) [#/Vo l]Ordered By: Edenilson Reinoso on 05-03-2023 Neutrophils (Bld) [#/Vol] 11.3 10*3/uL 1.8-7.7 [facility] Neutrophils/100 WBC Auto (Bl d)Ordered By: Edenilson Reinoso on 05-03-2023 Neutrophils/100 WBC (Bld) 84.1 % . [facility] Nitrite Test strip Ql (U)Ord ered By: Edenilson Reinoso on 05-03-2023 Nitrite Ql (U) Negative Negative [facility] No Panel InformationOrdered By: Edenilson Reinoso on 05-03-2023 Estimated GFR (CKD-EPI) 50.623 mL/Min [facility] Creatinine Clearance (Chem 54.49 [facility] Nucleated erythrocytes [Pres ence] in Blood by Automated countOrdered By: Edenilson Reinoso on 05-03-2023 Nucleated RBC Auto Ql (Bld) 0.1 /100{WBC} 0-0.5 [facility] Platelet mean volume Auto (B ld) [Entitic vol]Ordered By: Edenilson Reinoso on 05-03-2023 Platelet mean volume (Bld) [Entitic vol] 8.4 fL 6.6-10.1 [facility] Platelets Auto (Bld) [#/Vol] Ordered By: Edenilson Reinoso on 05-03-2023 Platelets (Bld) [#/Vol] 185 10*3/uL 150-450 [facility] Potassium [Moles/volume] in Serum or PlasmaOrdered By: Edenilson Reinoso on 05-03-2023 Potassium [Moles/Vol] 4.1 mmol/L 3.5-5.1 [facility] Protein Auto test strip (U) [Mass/Vol]Ordered By: Edenilson Reinoso on 05-03-2023 Protein (U) [Mass/Vol] Trace mg/dL Negative F [facility] Protein [Mass/volume] in Ser um or PlasmaOrdered By: Edenilson Reinoso on 05-03-2023 Protein [Mass/Vol] 6.7 g/dL 6.4-8.9 [facility] RBC Auto (Bld) [#/Vol]Ordere d By: Edenilson Reinoso on 05-03-2023 RBC (Bld) [#/Vol] 5.06 10*6/uL 3.90-5.60 [facility] Serum or plasma albumin/glob ulin mass ratioOrdered By: Edenilson Reinoso on 05-03-2023 Albumin/Globulin [Mass ratio] 1.9 {ratio} [facility] Serum or plasma anion gap de terminationOrdered By: Edenilson Reinoso on 05-03-2023 Anion gap [Moles/Vol] 13.8 mmol/L 6.0-15.0 [facility] Serum or plasma non-glucuron idated bilirubin measurement (mass/volume)Ordered By: Edenilson Reinoso on 05-03-2023 Bilirubin.indirect [Mass/Vol] 0.8 mg/dL [facility] Sodium [Moles/volume] in Ser um or PlasmaOrdered By: Edenilson Reinoso on 05-03-2023 Sodium [Moles/Vol] 136 mmol/L 136-145 [facility] Specific gravity Auto test s trip (U) [Rel density]Ordered By: Edenilson Reinoso on 05-03-2023 Specific gravity (U) [Rel density] 1.024 1.001-1.03 0 [facility] Squamous epithelial cells de tection in urine sediment by light microscopyOrdered By: Edenilson Reinoso on 05-03-2023 Epithelial cells.squamous LM Ql (Urine sed) None seen [HPF] 0-2 [facility] Urea nitrogen [Mass/volume] in Serum or PlasmaOrdered By: Edenilson Reinoso on 05-03-2023 Urea nitrogen [Mass/Vol] 22 mg/dL 7-25 [facility] Urine bacteria detection by automated methodOrdered By: Edenilson Reinoso on 05-03-2023 Bacteria Auto Ql (U) None seen None Seen [facility] Urine clarity by refractomet ry automatedOrdered By: Edenilson Reinoso on 05-03-2023 Clarity Refractometry automated (U) Clear Clear [facility] Urine glucose measurement by automated test strip (mass/volume)Ordered By: Edenilson Reinoso on 05-03-2023 Glucose Auto test strip (U) [Mass/Vol] Normal mg/dL Normal [facility] Urine hemoglobin detection b y automated test stripOrdered By: Edenilson Reinoso on 05-03-2023 Hemoglobin Auto test strip Ql (U) 1+ Negative [facility] Urine leukocyte esterase det ection by automated test stripOrdered By: Edenilson Reinoso on 05-03-2023 Leukocyte esterase Auto test strip Ql (U) 1+ Negative [facility] Urobilinogen Auto test strip (U) [Mass/Vol]Ordered By: Edenilson Reinoso on 05-03-2023 Urobilinogen (U) [Mass/Vol] Normal mg/dL Normal [facility] WBC Auto (Bld) [#/Vol]Ordere d By: Edenilson Reinoso on 05-03-2023 WBC (Bld) [#/Vol] 13.4 10*3/uL 4.1-10.5 [facility] pH Auto test strip (U)Ordere d By: Edenilson Reinoso on 05-03-2023 pH (U) 5.5 [pH] 5.0-9.0 [facility] Alanine aminotransferase [En zymatic activity/volume] in Serum or PlasmaOrdered By: Sascha Sutton on 04-08-2023 ALT [Catalytic activity/Vol] 33 U/L 7-52 [facility] Albumin [Mass/volume] in Ser um or Plasma by Bromocresol green (BCG) dye binding methoOrdered By: Sascha Sutton on 04-08-2023 Albumin BCG dye [Mass/Vol] 4.0 g/dL 3.5-5.7 [facility] Alkaline phosphatase [Enzyma tic activity/volume] in Serum or PlasmaOrdered By: Sascha Sutton on 04-08-2023 ALP [Catalytic activity/Vol] 82 U/L 34-104 [facility] Aspartate aminotransferase [ Enzymatic activity/volume] in Serum or PlasmaOrdered By: Sascha Sutton on 04-08-2023 AST [Catalytic activity/Vol] 19 U/L 13-39 [facility] Bilirubin.total [Mass/volume ] in Serum or PlasmaOrdered By: Sascha Sutton on 04-08-2023 Bilirubin [Mass/Vol] 0.8 mg/dL 0.3-1.0 [facility] Calcium [Mass/volume] in Ser um or PlasmaOrdered By: Sascha Sutton on 04-08-2023 Calcium [Mass/Vol] 8.8 mg/dL 8.6-10.3 [facility] Carbon dioxide, total [Moles /volume] in Serum or PlasmaOrdered By: Sascha Sutton on 04-08-2023 CO2 [Moles/Vol] 28.1 mmol/L 21.0-31.0 [facility] Chloride [Moles/volume] in S ace or PlasmaOrdered By: Sascha Sutton on 04-08-2023 Chloride [Moles/Vol] 107 mmol/L 98-107 [facility] Cholesterol [Mass/volume] in Serum or PlasmaOrdered By: Sascha Sutton on 04-08-2023 Cholesterol [Mass/Vol] 119 mg/dL 140-200 [facility] Comment on above: Chol less than 200 m g/dl low riskChol 201-239 mg/dl borderline riskChol 240 mg/dl and greater high risk Cholesterol in LDL Calc [Mas s/Vol]Ordered By: Sascha Sutton on 04-08-2023 Cholesterol in LDL [Mass/Vol] 55 mg/dL 0-100 [facility] Comment on above: LDL ATP III CLASSIFI CATIONLDL less than 100 mg/dL OptimalLDL 100-129 mg/dL Near or above optimalLDL 130-159 mg/dL Borderline highLDL 160-189 mg/dL HighLDL greater than 189 mg/dL Very high Cholesterol in VLDL Calc [Ma ss/Vol]Ordered By: Sascha Sutton on 04-08-2023 Cholesterol in VLDL [Mass/Vol] 25 mg/dL [facility] Creatinine [Mass/volume] in Serum or PlasmaOrdered By: Sascha Sutton on 04-08-2023 Creatinine [Mass/Vol] 0.85 mg/dL 0.70-1.30 [facility] Globulin Calc (S) [Mass/Vol] Ordered By: Sascha Sutton 04-08-2023 Globulin (S) [Mass/Vol] 2.1 g/dL [facility] Glucose [Mass/volume] in Ser um or PlasmaOrdered By: Sascha Sutton on 04-08-2023 Glucose [Mass/Vol] 85 mg/dL 70-100 [facility] Comment on above: ADA recommended refe rence rangeRandom Glucose Reference Range is dependent on time and content of last meal. Glucose of more than 200 mg/dL in a nonstressed, ambulatory subject supports the diagnosis of Diabetes Mellitus. No Panel InformationOrdered By: Sascha Sutton on 04-08-2023 Estimated GFR (CKD-EPI) > 60.0 mL/Min [facility] Creatinine Clearance (Chem N/A [facility] Potassium [Moles/volume] in Serum or PlasmaOrdered By: Sascha Sutton on 04-08-2023 Potassium [Moles/Vol] 4.1 mmol/L 3.5-5.1 [facility] Prostate specific Ag [Mass/v olume] in Serum or PlasmaOrdered By: Sascha Sutton on 04-08-2023 Prostate specific Ag [Mass/Vol] 1.770 ng/mL 0.000-4.00 0 [facility] Protein [Mass/volume] in Ser um or PlasmaOrdered By: Sascha Sutton on 04-08-2023 Protein [Mass/Vol] 6.1 g/dL 6.4-8.9 [facility] Serum or plasma albumin/glob ulin mass ratioOrdered By: Sascha Sutton 04-08-2023 Albumin/Globulin [Mass ratio] 1.9 {ratio} [facility] Serum or plasma anion gap de terminationOrdered By: Sascha Sutton 04-08-2023 Anion gap [Moles/Vol] 9.0 mmol/L 6.0-15.0 [facility] Serum or plasma high density lipoprotein (HDL) cholesterol measurementOrdered By: Sascha Sutton 04-08-2023 Cholesterol in HDL [Mass/Vol] 39 mg/dL 29-71 [facility] Comment on above: HDL CHOL ATP-III CLA SSIFICATION Cardiovascular RiskHDL > or equal to 60 mg/dL LOWHDL < 40 mg/dL HIGH Serum or plasma total choles terol/high density lipoprotein (HDL) cholesterol mass ratOrdered By: Sascha Sutton on 04-08-2023 Cholesterol.total/Chol esterol in HDL [Mass ratio] 3.1 {ratio} <5.0 [facility] Sodium [Moles/volume] in Ser um or PlasmaOrdered By: Sascha Sutton on 04-08-2023 Sodium [Moles/Vol] 140 mmol/L 136-145 [facility] Triglyceride [Mass/volume] i n Serum or PlasmaOrdered By: Sascha Sutton on 04-08-2023 Triglyceride [Mass/Vol] 125 mg/dL 0-149 [facility] Comment on above: TRIG ATP III CLASSIF ICATIONTRIG less than 150 mg/dL NormalTRIG 150-199 mg/dL Borderline highTRIG 200-500 mg/dL High TRIG greater than 500 mg/dL Very highStandard traceable to the Center for Disease Conrtrol and Prevention (CDC) test method. Urea nitrogen [Mass/volume] in Serum or PlasmaOrdered By: Sascha Sutton on 04-08-2023 Urea nitrogen [Mass/Vol] 17 mg/dL 7 [facility] Activated partial thrombopla stin time (aPTT) in platelet poor plasma by coagulation aOrdered By: Melanie Trujillo on 03-31-2023 aPTT Coag (PPP) [Time] 39.0 s 25.1-36.5 [facility] Basophils Auto (Bld) [#/Vol] Ordered By: Melanie Trujillo on 03-31-2023 Basophils (Bld) [#/Vol] 0.0 10*3/uL 0.0-0.2 [facility] Basophils/100 WBC Auto (Bld) Ordered By: Melanie Trujillo on 03-31-2023 Basophils/100 WBC (Bld) 0.6 % . [facility] Carbon dioxide, total [Moles /volume] in Serum or PlasmaOrdered By: Melanie Trujillo on 03-31-2023 CO2 [Moles/Vol] 26.4 mmol/L 21.0-31.0 [facility] Chloride [Moles/volume] in S ace or PlasmaOrdered By: Melanie Trujillo on 03-31-2023 Chloride [Moles/Vol] 106 mmol/L 98-107 [facility] Cholesterol [Mass/volume] in Serum or PlasmaOrdered By: Melanie Trujillo on 03-31-2023 Cholesterol [Mass/Vol] 132 mg/dL 140-200 [facility] Comment on above: Chol less than 200 m g/dl low riskChol 201-239 mg/dl borderline riskChol 240 mg/dl and greater high risk Cholesterol in LDL Calc [Mas s/Vol]Ordered By: Melanie Trujillo on 03-31-2023 Cholesterol in LDL [Mass/Vol] 71 mg/dL 0-100 [facility] Comment on above: LDL ATP III CLASSIFI CATIONLDL less than 100 mg/dL OptimalLDL 100-129 mg/dL Near or above optimalLDL 130-159 mg/dL Borderline highLDL 160-189 mg/dL HighLDL greater than 189 mg/dL Very high Cholesterol in VLDL Calc [Ma ss/Vol]Ordered By: Melanie Trujillo on 03-31-2023 Cholesterol in VLDL [Mass/Vol] 21 mg/dL [facility] Creatinine [Mass/volume] in Serum or PlasmaOrdered By: Melanie Trujillo on 03-31-2023 Creatinine [Mass/Vol] 0.88 mg/dL 0.70-1.30 [facility] Eosinophils Auto (Bld) [#/Vo l]Ordered By: Melanie Trujillo on 03-31-2023 Eosinophils (Bld) [#/Vol] 0.1 10*3/uL 0.0-0.45 [facility] Eosinophils/100 WBC Auto (Bl d)Ordered By: Melanie Trujillo on 03-31-2023 Eosinophils/100 WBC (Bld) 1.6 % . [facility] Erythrocyte distribution wid th Auto (RBC) [Ratio]Ordered By: Melanie Trujillo on 03-31-2023 Erythrocyte distribution width (RBC) [Ratio] 14.5 % 12.0-14.8 [facility] Hematocrit Auto (Bld) [Volum e fraction]Ordered By: Melanie Trujillo on 03-31-2023 Hematocrit (Bld) [Volume fraction] 46.7 % 38.8-50.0 [facility] Hemoglobin [Mass/volume] in BloodOrdered By: Melanie Trujillo on 03-31-2023 Hemoglobin (Bld) [Mass/Vol] 16.0 g/dL 13.0-17.0 [facility] Laboratory - Chemistry and C hemistry - challengeon 03-31-2023 Cholesterol [Mass/Vol] 132\S\132 below low threshold 140-200 [facility] manda 250 DO Work Phone: Comment on above: Chol less than 200 m g/dl low risk Chol 201-239 mg/dl borderline risk Chol 240 mg/dl and greater high risk Cholesterol in LDL [Mass/Vol] 71\S\71 Normal 0-100 [facility] manda 250 DO Work Phone: Comment on above: LDL ATP III CLASSIFI CATION LDL less than 100 mg/dL Optimal LDL 100-129 mg/dL Near or above optimal LDL 130-159 mg/dL Borderline high LDL 160-189 mg/dL High LDL greater than 189 mg/dL Very high Laboratory - CoagulationOrde red By: Melanie Trujillo on 03-31-2023 PT Coag (PPP) [Time] 12.3 s 9.0-12.9 [facility] Leukocytes [#/volume] correc nat for nucleated erythrocytes in Blood by Automated counOrdered By: Melanie Trujillo on 03-31-2023 WBC corrected for nucl RBC Auto (Bld) [#/Vol] 5.7 10*3/uL 4.1-10.5 [facility] Lymphocytes Auto (Bld) [#/Vo l]Ordered By: Melanie Trujillo on 03-31-2023 Lymphocytes (Bld) [#/Vol] 0.8 10*3/uL 1.00-4.8 [facility] Lymphocytes/100 WBC Auto (Bl d)Ordered By: Melanie Trujillo on 03-31-2023 Lymphocytes/100 WBC (Bld) 13.8 % . [facility] MCH Auto (RBC) [Entitic mass ]Ordered By: Melanie Trujillo on 03-31-2023 MCH (RBC) [Entitic mass] 30.4 pg 27.5-35.2 [facility] MCHC Auto (RBC) [Mass/Vol]Or dered By: Melanie Trujillo on 03-31-2023 MCHC (RBC) [Mass/Vol] 34.2 g/dL 32.5-35.6 [facility] MCV Auto (RBC) [Entitic vol] Ordered By: Melanie Trujillo on 03-31-2023 MCV (RBC) [Entitic vol] 89.0 fL 83.5-101 [facility] Monocytes Auto (Bld) [#/Vol] Ordered By: Melanie Trujillo on 03-31-2023 Monocytes (Bld) [#/Vol] 0.8 10*3/uL 0.0-0.8 [facility] Monocytes/100 WBC Auto (Bld) Ordered By: Melanie Trujillo on 03-31-2023 Monocytes/100 WBC (Bld) 13.9 % . [facility] Neutrophils Auto (Bld) [#/Vo l]Ordered By: Melanie Trujillo on 03-31-2023 Neutrophils (Bld) [#/Vol] 4.0 10*3/uL 1.8-7.7 [facility] Neutrophils/100 WBC Auto (Bl d)Ordered By: Melanie Trujillo on 03-31-2023 Neutrophils/100 WBC (Bld) 70.1 % . [facility] No Panel InformationOrdered By: Melanie Trujillo on 03-31-2023 Estimated GFR (CKD-EPI) > 60.0 mL/Min [facility] Creatinine Clearance (Chem N/A [facility] No Panel Informationon 03-31 10.7\S\10.7 Normal 6.0-15.0 [facility]anda 250 DO Work Phone: 26.4\S\26.4 Normal 21.0-31.0 [facility] 250 DO Work Phone: 106\S\106 Normal 0-149 [place] [address] DO Work Phone: Comment on above: TRIG ATP III CLASSIF ICATION TRIG less than 150 mg/dL Normal TRIG 150-199 mg/dL Borderline high TRIG 200-500 mg/dL High TRIG greater than 500 mg/dL Very high Standard traceable to the Center for Disease Conrtrol and Prevention (CDC) test method. 4.1\S\4.1 Normal 3.5-5.1 [facility] manda 250 DO Work Phone: 139\S\139 Normal 136-145 [facility] manda 250 DO Work Phone: 23\S\23 Normal 7-25 [facility] manda 250 DO Work Phone: > 60.0 Normal [facility] manda 250 DO Work Phone: 0.88\S\0.88 Normal 0.70-1.30 [facility] manda 250 DO Work Phone: 3.3\S\3.3 Normal <5.0 [facility]inay 250 DO Work Phone: Comment on above: PERFORMED BY:[facility] [place], [place] [id number] MEDICAL DIRECTOROLMAN ALBARRAN M.D. 21\S\21 Normal [facility] 250 DO Work Phone: 40\S\40 Normal 29-71 [facility] holman 250 DO Work Phone: Comment on above: HDL CHOL ATP-III CLA SSIFICATION Cardiovascular Risk HDL > or equal to 60 mg/dL LOW HDL < 40 mg/dL HIGH 0.0\S\0.0 Normal 0.0-0.2 [facility] 250 DO Work Phone: Comment on above: PERFORMED BY:[facility] [place], [place] [phone] MEDICAL DIRECTOROLMAN ALBARRAN M.D. 0.1\S\0.1 Normal 0-0.5 [facility] 250 DO Work Phone: 0.8\S\0.8 below low threshold 1.00-4.8 [facility] manda 250 DO Work Phone: 4.0\S\4.0 Normal 1.8-7.7 [facility] manda 250 DO Work Phone: 0.6\S\0.6 Normal . [facility] holman 250 DO Work Phone: 1.6\S\1.6 Normal . [facility] manda 250 DO Work Phone: [phone] 13.9\S\13.9 Normal . [facility] manda 250 DO Work Phone: [phone] 13.8\S\13.8 Normal . [facility] manda 250 DO Work Phone: [phone] 70.1\S\70.1 Normal . [facility] manda 250 DO Work Phone: [phone] 8.4\S\8.4 Normal 6.6-10.1 [facility] manda 250 DO Work Phone: [phone] 180\S\180 Normal 150-450 [facility] manda 250 DO Work Phone: [phone] 14.5\S\14.5 Normal 12.0-14.8 [facility] manda 250 DO Work Phone: [phone] 34.2\S\34.2 Normal 32.5-35.6 [facility]anda 250 DO Work Phone: [phone] 30.4\S\30.4 Normal 27.5-35.2 [facility] manda 250 DO Work Phone: [phone] 89.0\S\89.0 Normal 83.5-101 [facility] manda 250 DO Work Phone: [phone] 46.7\S\46.7 Normal 38.8-50.0 [facility] 250 DO Work Phone: [phone] 16.0\S\16.0 Normal 13.0-17.0 [facility] manda 250 DO Work Phone: [phone] 5.24\S\5.24 Normal 3.90-5.60 [facility] manda 250 DO Work Phone: [phone] 5.7\S\5.7 Normal 4.1-10.5 [facility] manda 250 DO Work Phone: 39.0\S\39.0 above high threshold 25.1-36.5 [facility] manda 250 DO Work Phone: Comment on above: PERFORMED BY:[place] [id number] [place], [place] [phone] MEDICAL DIRECTOROLMAN ALBARRAN M.D. 1.1\S\1.1 Normal [facility] manda [employer] DO Work Phone: Comment on above: INR [...] valves: 3 - 4.5 12.3\S\12.3 Normal 9.0-12.9 [facility] [employer] DO Work Phone: Nucleated erythrocytes [Pres ence] in Blood by Automated countOrdered By: Melanie Trujillo on 03-31-2023 Nucleated RBC Auto Ql (Bld) 0.1 /100{WBC} 0-0.5 [facility] Platelet mean volume Auto (B ld) [Entitic vol]Ordered By: Melanie Trujillo on 03-31-2023 Platelet mean volume (Bld) [Entitic vol] 8.4 fL 6.6-10.1 [facility] Platelet poor plasma interna tional normalized ratio (INR) by coagulation assay (relatOrdered By: Melanie Trujillo on 03-31-2023 INR Coag (PPP) [Relative time] 1.1 {INR} [facility] Comment on above: INR Therapeutic Rang [...] 03-31-2023 Platelets (Bld) [#/Vol] 180 10*3/uL 150-450 [facility] Potassium [Moles/volume] in Serum or PlasmaOrdered By: Melanie Trujillo on 03-31-2023 Potassium [Moles/Vol] 4.1 mmol/L 3.5-5.1 [facility] RBC Auto (Bld) [#/Vol]Ordere d By: Melanie Trujillo on 03-31-2023 RBC (Bld) [#/Vol] 5.24 10*6/uL 3.90-5.60 [facility] Serum or plasma anion gap de terminationOrdered By: Melanie Trujillo on 03-31-2023 Anion gap [Moles/Vol] 10.7 mmol/L 6.0-15.0 [facility] Serum or plasma high density lipoprotein (HDL) cholesterol measurementOrdered By: Melanie Trujillo on 03-31-2023 Cholesterol in HDL [Mass/Vol] 40 mg/dL 29-71 [facility] Comment on above: HDL CHOL ATP-III CLA SSIFICATION Cardiovascular RiskHDL > or equal to 60 mg/dL LOWHDL < 40 mg/dL HIGH Serum or plasma total choles terol/high density lipoprotein (HDL) cholesterol mass ratOrdered By: Melanie Trujillo on 03-31-2023 Cholesterol.total/Chol esterol in HDL [Mass ratio] 3.3 {ratio} <5.0 [facility] Sodium [Moles/volume] in Ser um or PlasmaOrdered By: Melanie Trujillo on 03-31-2023 Sodium [Moles/Vol] 139 mmol/L 136-145 [facility] Triglyceride [Mass/volume] i n Serum or PlasmaOrdered By: Melanie Trujillo on 03-31-2023 Triglyceride [Mass/Vol] 106 mg/dL 0-149 [facility] Comment on above: TRIG ATP III CLASSIF ICATIONTRIG less than 150 mg/dL NormalTRIG 150-199 mg/dL Borderline highTRIG 200-500 mg/dL High TRIG greater than 500 mg/dL Very highStandard traceable to the Center for Disease Conrtrol and Prevention (CDC) test method. Urea nitrogen [Mass/volume] in Serum or PlasmaOrdered By: Melanie Trujillo on 03-31-2023 Urea nitrogen [Mass/Vol] 23 mg/dL 7 [facility] WBC Auto (Bld) [#/Vol]Ordere d By: Melanie Trujillo on 03-31-2023 WBC (Bld) [#/Vol] 5.7 10*3/uL 4.1-10.5 [facility] Office Visit (Cardiology)on 03-30-2023 Follow-up visit [...] Former smoker Tobacco Use Screening; Status:Complete; Done: [id number] Patient Instructions Please bring all medicines, vitamins, [...] and right neck radiation that occurred at [facility] this past Tuesday with subsequent stress imaging performed after he was admitted at [facility] that was reportedly unremarkable. Patient has since [...] Allergies Medication (more content not included)... Normal [employer] Tobacco Screening.on 023 Adult depression screening assessment No [facility] [email or web address] 250 DO Work Phone: Fall risk assessment a) No falls within the last year [facility] manda 250 DO Work Phone: Tobacco use status CPHS b) No [facility] [employer] 250 DO Work Phone: ECHOCARDIO M/2D COMPLETEon 0 03-21-2023 ECHOCARDIO M/2D COMPLETE Patient: VALENTIN TORRE Exam Date: 03/21/2023 : 1955 Gender:M Ordering : SHAIKH Pee MULTANI . Admission #: [id number] Family : DR SASCHA SUTTON Order #: [id number] CLICK HERE TO VIEW EXAM ECHOCARDIOGRAM REPORT [...] Area (VTI): 3.04 cm2, 3.04 cm2 Deceleration [place]: 0.56 m/s2 Pressure Half-Time: 991.91 ms Peak [...] Huynh M.D. on 03/24/2023 at 12:21 Normal [facility] [place] STRESS/REST MULTIon 03-21 [place] STRESS/REST MULTI Patient: JANEL TORRE Exam Date: 03/21/2023 : 1955 Gender:M Ordering : SHAIKH Pee MULTANI . Admission #: [id number] Family : Order #: [id number] CLICK HERE TO VIEW EXAM RADIOLOGY REPORT [...] M.D. on 03/22/2023 at 11:30 Normal [facility] TROPONIN, HIGH SENSITIVITYon 03-21-2023 HSTROP 13.1 pg/mL Normal 4.0-76.1 [facility] Comment on above: Result Comment: CUT- OFF POINTS HAVE BEEN ESTABLISHED BASED ON THE FOURTH UNIVERSAL DEFINITIONS OF MYOCARDIAL INFARCTION. THE UPPER REFERENCE LIMIT (URL) OF TROPONIN, DEFINED THE 99TH PERCENTILE OF cTnI DISTRIBUTION IN A REFERENCE POPULATION, HAS BEEN CONFIRMED THE DECISION THRESHOLD FOR MD DIAGNOSIS. Performed By: #### H STROPN ####[facility] [id number] [place] [address]Dr. Jo De Dios BNPon 03-20-2023 Natriuretic peptide B (Bld) [Mass/Vol] 47.0 pg/mL Normal <=900.0 [facility] Comment on above: Performed By: #### B SECURITY NURSE, CMP, CMADM #### [facility] [address] [place] [address] [address] Jo De Dios CARDIAC YANETH ADMITon 023 CK [Catalytic activity/Vol] 149 U/L Normal 39-308 [facility] Comment on above: Performed By: #### B SECURITY NURSE, CMP, CMADM ####[facility] [id number] [place] [id number]. Jo De Dios CK.MB [Mass/Vol] 1.51 ng/mL Normal <=3.60 [facility] Comment on above: Performed By: #### B SECURITY NURSE, CMP, CMADM ####[facility] [id number] [place] [id number]. Jo De Dios HSTROP 14.8 pg/mL Normal 4.0-76.1 [facility] Comment on above: Result Comment: CUT- OFF POINTS HAVE BEEN ESTABLISHED BASED ON THE FOURTH UNIVERSAL DEFINITIONS OF MYOCARDIAL INFARCTION. THE UPPER REFERENCE LIMIT (URL) OF TROPONIN, DEFINED THE 99TH PERCENTILE OF cTnI DISTRIBUTION IN A REFERENCE POPULATION, HAS BEEN CONFIRMED THE DECISION THRESHOLD FOR MD DIAGNOSIS. Performed By: #### B SECURITY NURSE, CMP, CMADM ####[facility] [id number] [place] [address]DrRigo De Dios RAAD 55 ng/mL Normal 16-96 [facility] Comment on above: Performed By: #### B SECURITY NURSE, CMP, CMADM ####[facility] [id number] [place] [address]DrRigo De Dios CBC AUTO DIFFon 03-20-2023 BASO # 0.0 103/ul Normal 0.0-0.1 [facility] Comment on above: Performed By: #### C BC #### [facility] [address] [address] [address] Jo De Dios Basophils/100 WBC (Bld) 0.7 % Normal 0.2-2.0 [facility] Comment on above: Performed By: #### C BC #### [facility] [address] [address] [address] Jo De Dios EO # 0.1 103/ul Normal 0.0-0.7 [facility] Comment on above: Performed By: #### C BC #### [facility] [address] [address] [address] Jo De Dios Eosinophils/100 WBC (Bld) 1.5 % Normal 0.9-7.0 [facility] Comment on above: Performed By: #### C BC #### [facility] [address] [address] [address] Jo De Dios Erythrocyte distribution width (RBC) [Ratio] 14.3 % Normal 11.0-15.0 [facility] Comment on above: Performed By: #### C BC #### [facility] [address] [place] [address] Dr. Jo De Dios Hematocrit (Bld) [Volume fraction] 46.1 % Normal 42.0-54.0 [facility] Comment on above: Performed By: #### C BC #### [facility] [address] [place] [address] Dr. Jo De Dios Hemoglobin (Bld) [Mass/Vol] 15.9 g/dL Normal 14.0-18.0 [facility] Comment on above: Performed By: #### C BC #### [facility] [address] [place] [address] Dr. Jo De Dios IG # 0.03 10e3/ul Normal 0.00-0.03 [facility] Comment on above: Performed By: #### C BC #### [facility] [address] [place] [address] Dr. Jo De Dios IG % 0.5 % Normal 0.0-0.5 [facility] Comment on above: Performed By: #### C BC #### [facility] [address] [place] [address] Dr. Jo De Dios LYMPH # 0.8 103/ul Critically low 1.2-3.8 [facility] Comment on above: Performed By: #### C BC #### [facility] [address] [place] [address] Dr. Jo De Dios Lymphocytes/100 WBC (Bld) 12.6 % Critically low 20.5-60.0 [facility] Comment on above: Performed By: #### C BC #### [facility] [address] [place] [address] Dr. Jo De Dios MANUAL DIFF REQ NO Normal [facility] Comment on above: Performed By: #### C BC #### [facility] [address] [place] [address] Dr. Jo De Dios MCH (RBC) [Entitic mass] 30.1 pg Normal 25.9-34.0 [facility] Comment on above: Performed By: #### C BC #### [facility] [address] [address] [address] Jo De Dios MCHC (RBC) [Mass/Vol] 34.5 g/dL Normal 29.9-35.2 [facility] Comment on above: Performed By: #### C BC #### [facility] [address] [address] [address] Jo De Dios MCV (RBC) [Entitic vol] 87.1 fL Normal 80.0-94.0 [facility] Comment on above: Performed By: #### C BC #### [facility] [address] [address] [address] Jo De Dios MONO # 0.8 103/ul Normal 0.3-0.8 [facility] Comment on above: Performed By: #### C BC #### [facility] [address] [place] [address] Dr. Jo De Dios Monocytes/100 WBC (Bld) 13.7 % Critically high 1.7-12.0 [facility] Comment on above: Performed By: #### C BC #### [facility] [address] [place] [address] Dr. Jo De Dios NEUT # 4.4 103/ul Normal 1.4-6.5 [facility] Comment on above: Performed By: #### C BC #### [facility] [address] [place] [address] Dr. Jo De Dios Neutrophils/100 WBC (Bld) 71.0 % Normal 43.0-75.0 [facility] Comment on above: Performed By: #### C BC #### [facility] [address] [place] [address] Dr. Jo De Dios Platelet mean volume (Bld) [Entitic vol] 9.8 fL Normal 9.5-13.5 [facility] Comment on above: Performed By: #### C BC #### [facility] [address] [address] [address] oJ De Dios PLT 179 103/ul Normal 150-450 [facility] Comment on above: Performed By: #### C BC #### [facility] [address] [place], [place] [address] Dr. Jo De Dios RBC 5.29 106/ul Normal 4.70-6.10 [facility] Comment on above: Performed By: #### C BC #### [facility] [address] [place], [place] [address] Dr. Jo De Dios WBC 6.1 103/ul Normal 4.0-11.0 [facility] Comment on above: Performed By: #### C BC #### [facility] [address] [place], [place] [address] Dr. Jo De Dios CTA CHEST WO [...] ROBERTA WOOD Date: 2023-03-20 16:10 Normal [facility] D-DIMERon 03-20-2023 D-DIMER 0.60 mg/L FEU Critically high <=0.59 [facility] Comment on above: Performed By: #### D DIM ####[facility] [id number] [place], [place] [address]EoDr. Jo De Dios D-DIMER COMMENTS SEE BELOW Normal [facility] Comment on above: Result Comment: Incr eases [...] generalized hospitalization. Performed By: #### D DIM ####[facility] [id number] [address]Dr. Jo De Dios ER URINE PROFILEon 3 Bilirubin Ql (U) Negative Normal NEGATIVE [facility] Comment on above: Performed By: #### E RUR #### [facility] [address] [place] [address] Dr. Jo De Dios Clarity (U) CLEAR Normal CLEAR [facility] Comment on above: Performed By: #### E RUR #### [facility] [address] [place] [address] Dr. Jo De Dios Color (U) LT. YELLOW Normal YELLOW [facility] Comment on above: Performed By: #### E RUR #### [facility] [address] [place] [address] Dr. Jo RACHEL A micrscopic examina tion will be performed if indicated. Normal [facility] Comment on above: Performed By: #### E RUR #### [facility] [address] [place] [address] Dr. Jo De Dios Glucose Ql (U) Negative Normal NEGATIVE [facility] Comment on above: Performed By: #### E RUR #### [facility] [address] [place] [address] Dr. Jo De Dios Hemoglobin Ql (U) Negative Normal NEGATIVE [facility] Comment on above: Performed By: #### E RUR #### [facility] [address] [place] [address] Dr. Jo De Dios Ketones Ql (U) Negative Normal NEGATIVE [facility] Comment on above: Performed By: #### E RUR #### [facility] [address] [place] [address] Dr. Jo De Dios LEUKOCYTES Negative Normal NEGATIVE [facility] Comment on above: Performed By: #### E RUR #### [facility] [address] [place] [address] Dr. Jo De Dios Nitrite Ql (U) Negative Normal NEGATIVE [facility] Comment on above: Performed By: #### E RUR #### [facility] [address] [place] [address] Dr. Jo De Dios pH (U) 5.0 [pH] Normal 5-9 [facility] Comment on above: Performed By: #### E RUR #### [facility] [address] [place] [address] Dr. Jo De Dios SPEC GRAVITY 1.020 Normal 1.005-<=1. 025 [facility] Comment on above: Performed By: #### E RUR #### [facility] [address] [place] [address] Dr. Jo De Dios UA PROTEIN Negative Normal NEGATIVE/ TRACE [facility] Comment on above: Performed By: #### E RUR #### [facility] [address] [place] [address] Dr. Jo De Dios UR MICRO IND NOT INDICATED Normal [facility] Comment on above: Performed By: #### E RUR #### [facility] [address] [place] [address] Dr. Jo De Dios Urobilinogen Qn (U) 0.2 {Carrie'U}/dL Normal 0.2 - 1. 0 [facility] Comment on above: Performed By: #### E RUR #### [facility] [address] [place] [address] Dr. Jo De Dios GLYCOHEMOGLOBIN A1Con 2022 ADA RECOMMENDATION SEE BELOW Normal [facility] Comment on above: Result Comment: ADA RECOMMENDED LIMIT 4.0 - 6.0 ADA THERAPEUTIC TARGET < 7.0 ACTION SUGGESTED > 7.0 Performed By: #### A 1C #### [facility] [address] [address] [address] Jo De Dios Glucose [Mass/Vol] 103 mg/dL Normal [facility] Comment on above: Performed By: #### A 1C #### [facility] [address] [address] [address] Jo De Dios HbA1c (Bld) [Mass fraction] 5.2 % Normal 4.5-6.2 [facility] Comment on above: Performed By: #### A 1C #### [facility] [address] [address] [address] Jo De Dios LIPID PROFILEon 03-20-2023 CHOL-HDL RATIO NORM SEE BELOW Normal [facility] Comment on above: Result Comment: 3.3 - 4.4 LOW RISK 4.4 - 7.1 AVERAGE RISK 7.1 - 11.0 MODERATE RISK >11.0 HIGH RISK Performed By: #### L IPID #### [facility] [address] [place] [address] Dr. Jo De Dios Cholesterol [Mass/Vol] 132 mg/dL Normal <=200 [facility] Comment on above: Performed By: #### L IPID #### [facility] [address] [address] [address] Jo De Dios Cholesterol in HDL [Mass/Vol] 46 mg/dL Normal 40-60 [facility] Comment on above: Performed By: #### L IPID #### [facility] [address] [address] [address] Jo De Dios Cholesterol in LDL [Mass/Vol] 69.4 mg/dL Normal [facility] Comment on above: Performed By: #### L IPID #### [facility] [address] [place] [address] Dr. Jo De Dios Cholesterol.total/Chol esterol in HDL [Mass ratio] 2.9 {ratio} Normal [facility] Comment on above: Performed By: #### L IPID #### [facility] [address] [address] [address] Jo De Dios HDL NORMAL > or = 60 mg/dl - LO W CARDIOVASCULAR RISK <40 mg/dl - HIGH CARDIOVASCULAR RISK Normal [facility] Comment on above: Performed By: #### L IPID #### [facility] [address] [address] [address] Jo De Dios LDL CALC NORMAL SEE BELOW Normal [facility] Comment on above: Result Comment: <100 mg/dl OPTIMAL 100 - 129 mg/dl NEAR OR ABOVE OPTIMAL 130 - 159 mg/dl BORDERLINE HIGH 160 - 189 mg/dl HIGH >190 mg/dl VERY HIGH Performed By: #### L IPID #### [facility] [address] [address] [address] Jo De Dios Triglyceride [Mass/Vol] 83 mg/dL Normal <=150 [facility] Comment on above: Performed By: #### L IPID #### [facility] [address] [place] [address] Dr. Jo De Dios VLDL CALC 16.6 mg/dL Normal [facility] Comment on above: Performed By: #### L IPID #### [facility] [address] [place] [address] Dr. Jo De Dios PROF 14(COMP METB)on 023 Albumin [Mass/Vol] 3.7 g/dL Normal 3.4-5.0 [facility] Comment on above: Performed By: #### B SECURITY NURSE, CMP, CMADM #### [facility] [address] [place] [address] Dr. Jo De Dios Albumin/Globulin [Mass ratio] 1.1 {ratio} Normal [facility] Comment on above: Performed By: #### B SECURITY NURSE, CMP, CMADM #### [facility] [address] [place] [address] Dr. Jo De Dios ALP [Catalytic activity/Vol] 96 U/L Normal 46-116 [facility] Comment on above: Performed By: #### B SECURITY NURSE, CMP, CMADM #### [facility] [address] [place] [address] Dr. Jo De Dios ALT [Catalytic activity/Vol] 41 U/L Normal 16-63 [facility] Comment on above: Performed By: #### B SECURITY NURSE, CMP, CMADM #### [facility] [address] [place] [address] Dr. Jo De Dios Anion gap [Moles/Vol] 11.2 mmol/L Normal Th e [facility] Comment on above: Performed By: #### B SECURITY NURSE, CMP, CMADM #### [facility] [address] [place] [address] Dr. Jo De Dios AST [Catalytic activity/Vol] 25 U/L Normal 15-37 [facility] Comment on above: Performed By: #### B SECURITY NURSE, CMP, CMADM #### [facility] [address] [place] [address] Dr. Jo De Dios Bilirubin [Mass/Vol] 0.8 mg/dL Normal 0.2-1.0 [facility] Comment on above: Performed By: #### B SECURITY NURSE, CMP, CMADM #### [facility] [address] [place] [address] Dr. Jo De Dios Calcium [Mass/Vol] 8.8 mg/dL Normal 8.5-10.1 [facility] Comment on above: Performed By: #### B SECURITY NURSE, CMP, CMADM #### [facility] [address] [place] [address] Dr. Jo De Dios Chloride [Moles/Vol] 109 mmol/L Critically high 98-107 [facility] Comment on above: Performed By: #### B SECURITY NURSE, CMP, CMADM #### [facility] [address] [place] [address] Dr. Jo De Dios CO2 [Moles/Vol] 23.4 mmol/L Normal 21.0-32.0 [facility] Comment on above: Performed By: #### B SECURITY NURSE, CMP, CMADM #### [facility] [address] [place] [address] Dr. Jo De Dios Creatinine [Mass/Vol] 0.84 mg/dL Normal 0.70-1.30 [facility] Comment on above: Performed By: #### B SECURITY NURSE, CMP, CMADM #### [facility] [address] [place] [address] Dr. Jo De Dios EGFR-AF LUXEMBOURGER >60 Normal >=60 [facility] Comment on above: Performed By: #### B SECURITY NURSE, CMP, CMADM #### [facility] [address] [address] [address] Jo De Dios EGFR-NON AF LUXEMBOURGER >60 Normal >=60 [facility] Comment on above: Performed By: #### B SECURITY NURSE, CMP, CMADM #### [facility] [address] [address] [address] Jo De Dios Globulin (S) [Mass/Vol] 3.3 g/dL Normal [facility] Comment on above: Performed By: #### B SECURITY NURSE, CMP, CMADM #### [facility] [address] [address] [address] Jo De Dios Glucose [Mass/Vol] 96 mg/dL Normal 74-106 [facility] Comment on above: Performed By: #### B SECURITY NURSE, CMP, CMADM #### [facility] [address] [place] [address] Dr. Jo De Dios Potassium [Moles/Vol] 3.6 mmol/L Normal 3.5-5.1 [facility] Comment on above: Performed By: #### B SECURITY NURSE, CMP, CMADM #### [facility] [address] [address] [address] Jo De Dios Protein [Mass/Vol] 7.0 g/dL Normal 6.4-8.2 [facility] Comment on above: Performed By: #### B SECURITY NURSE, CMP, CMADM #### [facility] [address] [address] [address] Jo De Dios Sodium [Moles/Vol] 140 mmol/L Normal 136-145 [facility] Comment on above: Performed By: #### B SECURITY NURSE, CMP, CMADM #### [facility] [address] [address] [address] Jo De Dios Urea nitrogen [Mass/Vol] 21.0 mg/dL Critically high 7.0-18.0 [facility] Comment on above: Performed By: #### B SECURITY NURSE, CMP, CMADM #### [facility] [address] [address] [address] Jo De Dios Urea nitrogen/Creatinine [Mass ratio] 25.0 mg/mg Normal [facility] Comment on above: Performed By: #### B SECURITY NURSE, CMP, CMADM #### [facility] [address] [place], [place] [address] Dr. Jo De Dios PROTIMEon 03-20-2023 INR Coag (PPP) [Relative time] 0.96 {INR} Normal [facility] Comment on above: Performed By: #### P T, PTT ####[facility] [id number] [address]Dr. Jo De Dios INR GUIDELINES SEE BELOW Normal [facility] Comment on above: Result Comment: BETSEY RED INR: 2.0 - 3.0 CONDITIONS NOT LISTED BELOW 2.5 - 3.5 FOR PROSTHETIC HEART VALVE REPLACEMENT 2.5 - 3.5 RECURRENT THROMBOSIS Performed By: #### P T, PTT ####[facility] [id number] [address]Dr. Jo De Dios PT Coag (PPP) [Time] 10.2 s Normal 9.0-11.6 [facility] Comment on above: Performed By: #### P T, PTT ####[facility] [id number] [id number][address] Jo De Dios PTTon 03-20-2023 aPTT Coag (Bld) [Time] 30.0 s Normal 22.3-36.2 Th e [facility] Comment on above: Performed By: #### P T, PTT ####[facility] [id number] [address]Dr. Jo De Dios TROPONIN, HIGH SENSITIVITYon 03-20-2023 HSTROP 30.2 pg/mL Normal 4.0-76.1 [facility] Comment on above: Result Comment: CUT- OFF POINTS HAVE BEEN ESTABLISHED BASED ON THE FOURTH UNIVERSAL DEFINITIONS OF MYOCARDIAL INFARCTION. THE UPPER REFERENCE LIMIT (URL) OF TROPONIN, DEFINED THE 99TH PERCENTILE OF cTnI DISTRIBUTION IN A REFERENCE POPULATION, HAS BEEN CONFIRMED THE DECISION THRESHOLD FOR MD DIAGNOSIS. Performed By: #### H STROPN ####[facility] [address] [address]Dr. Jo De Dios XR CHEST 1 Von [...] by: GAVIN MINER Date: 2023-03-20 12:56 Normal [facility] Alanine aminotransferase [En zymatic activity/volume] in Serum or PlasmaOrdered By: Christine Sanchez on 01-31-2023 ALT [Catalytic activity/Vol] 34 U/L 7-52 [facility] Albumin [Mass/volume] in Ser um or Plasma by Bromocresol green (BCG) dye binding methoOrdered By: Christine Sanchez on 01-31-2023 Albumin BCG dye [Mass/Vol] 4.3 g/dL 3.5-5.7 [facility] Alkaline phosphatase [Enzyma tic activity/volume] in Serum or PlasmaOrdered By: Christine Sanchez on 01-31-2023 ALP [Catalytic activity/Vol] 70 U/L 34-104 [facility] Aspartate aminotransferase [ Enzymatic activity/volume] in Serum or PlasmaOrdered By: Christine Sanchez on 01-31-2023 AST [Catalytic activity/Vol] 23 U/L 13-39 [facility] Automated erythrocytes count in urine sediment (number/area)Ordered By: Christine Sanchez on 01-31-2023 RBC Auto (Urine sed) [#/Area] 1-2 [HPF] 0-4 [facility] Automated leukocytes count i n urine sediment (number/area)Ordered By: Christine Sanchez on 01-31-2023 WBC Auto (Urine sed) [#/Area] 1-2 [HPF] 0-4 [facility] Basophils Auto (Bld) [#/Vol] Ordered By: Christine Sanchez on 01-31-2023 Basophils (Bld) [#/Vol] 0.0 10*3/uL 0.0-0.2 [facility] Basophils/100 WBC Auto (Bld) Ordered By: Christine Sanchez on 01-31-2023 Basophils/100 WBC (Bld) 0.5 % . [facility] Bilirubin Test strip Ql (U)O rdered By: Christine Sanchez on 01-31-2023 Bilirubin Ql (U) Negative Negative [facility] Bilirubin.total [Mass/volume ] in Serum or PlasmaOrdered By: Christine Sanchez on 01-31-2023 Bilirubin [Mass/Vol] 0.8 mg/dL 0.3-1.0 [facility] Calcium [Mass/volume] in Ser um or PlasmaOrdered By: Christine Sanchez on 01-31-2023 Calcium [Mass/Vol] 8.9 mg/dL 8.6-10.3 [facility] Carbon dioxide, total [Moles /volume] in Serum or PlasmaOrdered By: Christine Sanchez on 01-31-2023 CO2 [Moles/Vol] 24.6 mmol/L 21.0-31.0 [facility] Chloride [Moles/volume] in S ace or PlasmaOrdered By: Christine Sanchez on 01-31-2023 Chloride [Moles/Vol] 108 mmol/L 98-107 [facility] Color Auto (U)Ordered By: Marianna Arellano on 01-31-2023 Color (U) Dark yellow Yellow [facility] Creatinine [Mass/volume] in Serum or PlasmaOrdered By: Christine Sanchez on 01-31-2023 Creatinine [Mass/Vol] 0.90 mg/dL 0.70-1.30 [facility] Eosinophils Auto (Bld) [#/Vo l]Ordered By: Christine Sanchez on 01-31-2023 Eosinophils (Bld) [#/Vol] 0.1 10*3/uL 0.0-0.45 [facility] Eosinophils/100 WBC Auto (Bl d)Ordered By: Christine Sanchez on 01-31-2023 Eosinophils/100 WBC (Bld) 1.2 % . [facility] Erythrocyte distribution wid th Auto (RBC) [Ratio]Ordered By: Christine Sanchez on 01-31-2023 Erythrocyte distribution width (RBC) [Ratio] 15.2 % 12.0-14.8 [facility] Erythrocyte sedimentation ra te by Photometric methodOrdered By: Christine Sanchez on 01-31-2023 ESR Photometric method (Bld) [Velocity] 3 mm/hr 0-19 [facility] Globulin Calc (S) [Mass/Vol] Ordered By: Christine Sanchez on 01-31-2023 Globulin (S) [Mass/Vol] 1.9 g/dL [facility] Glucose [Mass/volume] in Ser um or PlasmaOrdered By: Christine Sanchez on 01-31-2023 Glucose [Mass/Vol] 131 mg/dL 74-109 [facility] Comment on above: ADA recommended refe rence rangeRandom Glucose Reference Range is dependent on time and content of last meal. Glucose of more than 200 mg/dL in a nonstressed, ambulatory subject supports the diagnosis of Diabetes Mellitus. Hematocrit Auto (Bld) [Volum e fraction]Ordered By: Christine Sanchez on 01-31-2023 Hematocrit (Bld) [Volume fraction] 45.2 % 38.8-50.0 [facility] Hemoglobin [Mass/volume] in BloodOrdered By: Christine Sanchez on 01-31-2023 Hemoglobin (Bld) [Mass/Vol] 15.4 g/dL 13.0-17.0 [facility] Ketones Auto test strip (U) [Mass/Vol]Ordered By: Christine Sanchez on 01-31-2023 Ketones (U) [Mass/Vol] Trace Negative [facility] - Chemistry and C hemistry - challengeOrdered By: Christine Sanchez on 01-31-2023 GFR/1.73 sq M.predicted MDRD (S/P/Bld) [Vol rate/Area] mL/min/{1.73_m2} [facility] - UrinalysisOrder ed By: Christine Sanchez on 01-31-2023 Hyaline casts LM Ql (Urine sed) 0-8 [LPF] 0-8 [facility] Leukocytes [#/volume] correc nat for nucleated erythrocytes in Blood by Automated counOrdered By: Christine Sanchez on 01-31-2023 WBC corrected for nucl RBC Auto (Bld) [#/Vol] 4.5 10*3/uL 4.1-10.5 [facility] Lymphocytes Auto (Bld) [#/Vo l]Ordered By: Christine Sanchez on 01-31-2023 Lymphocytes (Bld) [#/Vol] 0.7 10*3/uL 1.00-4.8 [facility] Lymphocytes/100 WBC Auto (Bl d)Ordered By: Christine Sanchez on 01-31-2023 Lymphocytes/100 WBC (Bld) 15.3 % . [facility] MCH Auto (RBC) [Entitic mass ]Ordered By: Christine Sanchez on 01-31-2023 MCH (RBC) [Entitic mass] 30.4 pg 27.5-35.2 [facility] MCHC Auto (RBC) [Mass/Vol]Or dered By: Christine Sanchez on 01-31-2023 MCHC (RBC) [Mass/Vol] 34.1 g/dL 32.5-35.6 [facility] MCV Auto (RBC) [Entitic vol] Ordered By: Christine Sanchez on 01-31-2023 MCV (RBC) [Entitic vol] 89.0 fL 83.5-101 [facility] Monocytes Auto (Bld) [#/Vol] Ordered By: Christine Sanchez on 01-31-2023 Monocytes (Bld) [#/Vol] 0.4 10*3/uL 0.0-0.8 [facility] Monocytes/100 WBC Auto (Bld) Ordered By: Christine Sanchez on 01-31-2023 Monocytes/100 WBC (Bld) 9.0 % . [facility] Neutrophils Auto (Bld) [#/Vo l]Ordered By: Christine Sanchez on 01-31-2023 Neutrophils (Bld) [#/Vol] 3.3 10*3/uL 1.8-7.7 [facility] Neutrophils/100 WBC Auto (Bl d)Ordered By: Christine Sanchez on 01-31-2023 Neutrophils/100 WBC (Bld) 74.0 % . [facility] Nitrite Test strip Ql (U)Ord ered By: Christine Sanchez on 01-31-2023 Nitrite Ql (U) Negative Negative [facility] No Panel InformationOrdered By: Christine Sanchez on 01-31-2023 Pharmacy Creatinine Clearance (Chem N/A [facility] Total Complement (CH50) >60 U/mL >41 [facility] Comment on above: Age Male Female [...] to determine out of range values.Performed at: [facility] [place] [id number] Director: Richy Ardon PhD, Phone: [phone] Nucleated erythrocytes [Pres ence] in Blood by Automated countOrdered By: Christine Sanchez on 01-31-2023 Nucleated RBC Auto Ql (Bld) 0.3 /100{WBC} 0-0.5 [facility] Platelet mean volume Auto (B ld) [Entitic vol]Ordered By: Chirstine Sanchez on 01-31-2023 Platelet mean volume (Bld) [Entitic vol] 8.5 fL 6.6-10.1 [facility] Platelets Auto (Bld) [#/Vol] Ordered By: Christine Sanchez on 01-31-2023 Platelets (Bld) [#/Vol] 163 10*3/uL 150-450 [facility] Potassium [Moles/volume] in Serum or PlasmaOrdered By: Christine Sanchez on 01-31-2023 Potassium [Moles/Vol] 3.7 mmol/L 3.5-5.1 [facility] Protein Auto test strip (U) [Mass/Vol]Ordered By: Christine Sanchez on 01-31-2023 Protein (U) [Mass/Vol] Trace mg/dL Negative F [facility] Protein [Mass/volume] in Ser um or PlasmaOrdered By: Christine Sanchez on 01-31-2023 Protein [Mass/Vol] 6.2 g/dL 6.4-8.9 [facility] RBC Auto (Bld) [#/Vol]Ordere d By: Christine Sanchez on 01-31-2023 RBC (Bld) [#/Vol] 5.08 10*6/uL 3.90-5.60 [facility] Serum or plasma albumin/glob ulin mass ratioOrdered By: Christine Sanchez on 01-31-2023 Albumin/Globulin [Mass ratio] 2.3 {ratio} [facility] Serum or plasma anion gap de terminationOrdered By: Christine Sanchez on 01-31-2023 Anion gap [Moles/Vol] 11.1 mmol/L 6.0-15.0 [facility] Serum or plasma complement C 3 measurement (mass/volume)Ordered By: Christine Sanchez on 01-31-2023 Complement C3 [Mass/Vol] 124 mg/dL 82-167 [facility] Comment on above: Performed at: [place] [id number] Director: Richy Ardon PhD, Phone: [phone] Serum or plasma complement C 4 measurement (mass/volume)Ordered By: Christine Sanchez on 01-31-2023 Complement C4 [Mass/Vol] 16 mg/dL 12-38 [facility] Sodium [Moles/volume] in Ser um or PlasmaOrdered By: Christine Sanchez on 01-31-2023 Sodium [Moles/Vol] 140 mmol/L 136-145 [facility] Specific gravity Auto test s trip (U) [Rel density]Ordered By: Christine Sanchez on 01-31-2023 Specific gravity (U) [Rel density] 1.028 1.001-1.03 0 [facility] Squamous epithelial cells de tection in urine sediment by light microscopyOrdered By: Christine Sanchez on 01-31-2023 Epithelial cells.squamous LM Ql (Urine sed) 0-1 [HPF] 0-2 [facility] Urea nitrogen [Mass/volume] in Serum or PlasmaOrdered By: Christine Sanchez on 01-31-2023 Urea nitrogen [Mass/Vol] 23 mg/dL 7-25 [facility] Urine bacteria detection by automated methodOrdered By: Christine Sanchez on 01-31-2023 Bacteria Auto Ql (U) None seen None Seen [facility] Urine clarity by refractomet ry automatedOrdered By: Christine Sanchez on 01-31-2023 Clarity Refractometry automated (U) Turbid Clear [facility] Urine glucose measurement by automated test strip (mass/volume)Ordered By: Christine Sanchez on 01-31-2023 Glucose Auto test strip (U) [Mass/Vol] Normal mg/dL Normal [facility] Urine hemoglobin detection b y automated test stripOrdered By: Christine Sanchez on 01-31-2023 Hemoglobin Auto test strip Ql (U) Negative Negative [facility] Urine leukocyte esterase det ection by automated test stripOrdered By: Christine Sanchez on 01-31-2023 Leukocyte esterase Auto test strip Ql (U) 1+ Negative [facility] Urobilinogen Auto test strip (U) [Mass/Vol]Ordered By: Christine Sanchez on 01-31-2023 Urobilinogen (U) [Mass/Vol] Normal mg/dL Normal [facility] WBC Auto (Bld) [#/Vol]Ordere d By: Christine Sanchez on 01-31-2023 WBC (Bld) [#/Vol] 4.5 10*3/uL 4.1-10.5 [facility] pH Auto test strip (U)Ordere d By: Christine Sanchez on 01-31-2023 pH (U) 5.0 [pH] 5.0-9.0 [facility] Automated erythrocytes count in urine sediment (number/area)Ordered By: Christine Sanchez on 10-26-2022 RBC Auto (Urine sed) [#/Area] 0-1 [HPF] 0-4 [facility] Automated leukocytes count i n urine sediment (number/area)Ordered By: Christine Sanchez on 10-26-2022 WBC Auto (Urine sed) [#/Area] 0-1 [HPF] 0-4 [facility] Basophils Auto (Bld) [#/Vol] Ordered By: Christine Sanchez on 10-26-2022 Basophils (Bld) [#/Vol] 0.0 10*3/uL 0.0-0.2 [facility] Basophils/100 WBC Auto (Bld) Ordered By: Christine Sanchez on 10-26-2022 Basophils/100 WBC (Bld) 0.6 % . [facility] Bilirubin Test strip Ql (U)O rdered By: Christine Sanchez on 10-26-2022 Bilirubin Ql (U) Negative Negative [facility] Body fluid albumin measureme nt (mass/volume)Ordered By: Christine Sanchez on 10-26-2022 Albumin (Body fld) [Mass/Vol] 4.0 g/dL 3.2-5.5 [facility] Color Auto (U)Ordered By: Marianna Arellano on 10-26-2022 Color (U) Yellow Yellow [facility] Creatinine and Glomerular fi ltration rate.predicted panel (S/P/Bld)Ordered By: Christine Sanchez on 10-26-2022 Creatinine [Mass/Vol] 0.89 mg/dL 0.64-1.27 [facility] Eosinophils Auto (Bld) [#/Vo l]Ordered By: Christine Sanchez on 10-26-2022 Eosinophils (Bld) [#/Vol] 0.1 10*3/uL 0.0-0.45 [facility] Eosinophils/100 WBC Auto (Bl d)Ordered By: Christine Sanchez on 10-26-2022 Eosinophils/100 WBC (Bld) 1.9 % . [facility] Erythrocyte distribution wid th Auto (RBC) [Ratio]Ordered By: Christine Sanchez on 10-26-2022 Erythrocyte distribution width (RBC) [Ratio] 14.7 % 12.0-14.8 [facility] Erythrocyte sedimentation ra te by Photometric methodOrdered By: Christine Sanchez on 10-26-2022 ESR Photometric method (Bld) [Velocity] 6 mm/hr 0-19 [facility] Estimated glomerular filtrat ion rate (GFR) non- AmericanOrdered By: Christine Sanchez on 10-26-2022 GFR/1.73 sq M.predicted among non-blacks MDRD (S/P/Bld) [Vol rate/Area] > 60 mL/Min [facility] Globulin Calc (S) [Mass/Vol] Ordered By: Christine Sanchez on 10-26-2022 Globulin (S) [Mass/Vol] 2.2 g/dL [facility] Hematocrit Auto (Bld) [Volum e fraction]Ordered By: Christine Sanchez on 10-26-2022 Hematocrit (Bld) [Volume fraction] 45.5 % 38.8-50.0 [facility] Hemoglobin [Mass/volume] in BloodOrdered By: Christine Sanchez on 10-26-2022 Hemoglobin (Bld) [Mass/Vol] 15.5 g/dL 13.0-17.0 [facility] Ketones Auto test strip (U) [Mass/Vol]Ordered By: Christine Sanchez on 10-26-2022 Ketones (U) [Mass/Vol] Trace Negative [facility] - UrinalysisOrder ed By: Christine Sanchez on 10-26-2022 Hyaline casts LM Ql (Urine sed) 0-8 [LPF] 0-8 [facility] Leukocytes [#/volume] correc nat for nucleated erythrocytes in Blood by Automated counOrdered By: Christine Sanchez on 10-26-2022 WBC corrected for nucl RBC Auto (Bld) [#/Vol] 4.7 10*3/uL 4.1-10.5 [facility] Lymphocytes Auto (Bld) [#/Vo l]Ordered By: Christine Sanchez on 10-26-2022 Lymphocytes (Bld) [#/Vol] 0.8 10*3/uL 1.00-4.8 [facility] Lymphocytes/100 WBC Auto (Bl d)Ordered By: Christine Sanchez on 10-26-2022 Lymphocytes/100 WBC (Bld) 16.8 % . [facility] MCH Auto (RBC) [Entitic mass ]Ordered By: Christine Sanchez on 10-26-2022 MCH (RBC) [Entitic mass] 30.4 pg 27.5-35.2 [facility] MCHC Auto (RBC) [Mass/Vol]Or dered By: Christine Sanchez on 10-26-2022 MCHC (RBC) [Mass/Vol] 33.9 g/dL 32.5-35.6 [facility] MCV Auto (RBC) [Entitic vol] Ordered By: Christine Sanchez on 10-26-2022 MCV (RBC) [Entitic vol] 89.6 fL 83.5-101 [facility] Monocytes Auto (Bld) [#/Vol] Ordered By: Christine Sanchez on 10-26-2022 Monocytes (Bld) [#/Vol] 0.6 10*3/uL 0.0-0.8 [facility] Monocytes/100 WBC Auto (Bld) Ordered By: Christine Sanchez on 10-26-2022 Monocytes/100 WBC (Bld) 12.8 % . [facility] Neutrophils Auto (Bld) [#/Vo l]Ordered By: Christine Sanchez on 10-26-2022 Neutrophils (Bld) [#/Vol] 3.2 10*3/uL 1.8-7.7 [facility] Neutrophils/100 WBC Auto (Bl d)Ordered By: Christine Sanchez on 10-26-2022 Neutrophils/100 WBC (Bld) 67.9 % . [facility] Nitrite Test strip Ql (U)Ord ered By: Christine Sanchez on 10-26-2022 Nitrite Ql (U) Negative Negative [facility] No Panel InformationOrdered By: Christine Sanchez on 10-26-2022 Estimated GFR () > 60 mL/Min [facility] Comment on above: GFR estimated refere nce range: According to KDOQI guidelines, <60 ml/min/1.73m2 is sufficient to diagnose a patient with chronic kidney disease. Pharmacy Creatinine Clearance (Chem N/A [facility] Nucleated erythrocytes [Pres ence] in Blood by Automated countOrdered By: Christine Sanchez on 10-26-2022 Nucleated RBC Auto Ql (Bld) 0.3 /100{WBC} 0-0.5 [facility] Platelet mean volume Auto (B ld) [Entitic vol]Ordered By: Christine Sanchez on 10-26-2022 Platelet mean volume (Bld) [Entitic vol] 8.3 fL 6.6-10.1 [facility] Platelets Auto (Bld) [#/Vol] Ordered By: Christine Sanchez on 10-26-2022 Platelets (Bld) [#/Vol] 203 10*3/uL 150-450 [facility] Protein Auto test strip (U) [Mass/Vol]Ordered By: Christine Sanchez on 10-26-2022 Protein (U) [Mass/Vol] Negative Negative [facility] Protein [Mass/volume] in Ser um or PlasmaOrdered By: Christine Sanchez on 10-26-2022 Protein [Mass/Vol] 6.2 g/dL 6.1-7.9 [facility] RBC Auto (Bld) [#/Vol]Ordere d By: Christine Sanchez on 10-26-2022 RBC (Bld) [#/Vol] 5.08 10*6/uL 3.90-5.60 [facility] Serum or plasma alanine calvert otransferase measurement without P-5'-P (enzymatic activiOrdered By: Christine Sanchez on 10-26-2022 ALT No additional P-5'-P [Catalytic activity/Vol] 40 U/L 10-60 [facility] Serum or plasma albumin/glob ulin mass ratioOrdered By: Christine Sanchez on 10-26-2022 Albumin/Globulin [Mass ratio] 1.8 {ratio} [facility] Serum or plasma alkaline kelsie sphatase measurement (enzymatic activity/volume)Ordered By: Christine Sanchez on 10-26-2022 ALP [Catalytic activity/Vol] 82 U/L 32-92 [facility] Serum or plasma anion gap de terminationOrdered By: Christine Sanchez on 10-26-2022 Anion gap [Moles/Vol] 16.9 mmol/L 6.0-15.0 [facility] Serum or plasma aspartate am inotransferase measurement (enzymatic activity/volume)Ordered By: Christine Sanchez on 10-26-2022 AST [Catalytic activity/Vol] 24 U/L 10-42 [facility] Serum or plasma calcium ophelia urement (mass/volume)Ordered By: Christine Sanchez on 10-26-2022 Calcium [Mass/Vol] 9.6 mg/dL 8.2-10.2 [facility] Serum or plasma chloride arelis surement (moles/volume)Ordered By: Christine Sanchez on 10-26-2022 Chloride [Moles/Vol] 102 mmol/L 95-114 [facility] Serum or plasma glucose ophelia urement (mass/volume)Ordered By: Christine Sanchez on 10-26-2022 Glucose [Mass/Vol] 105 mg/dL 70-100 [facility] Comment on above: ADA recommended refe rence rangeRandom Glucose Reference Range is dependent on time and content of last meal. Glucose of more than 200 mg/dL in a nonstressed, ambulatory subject supports the diagnosis of Diabetes Mellitus. Serum or plasma potassium me asurement (moles/volume)Ordered By: Christine Sanchez on 10-26-2022 Potassium [Moles/Vol] 4.1 mmol/L 3.5-5.1 [facility] Serum or plasma sodium measu rement (moles/volume)Ordered By: Christine Sanchez on 10-26-2022 Sodium [Moles/Vol] 136 mmol/L 136-146 [facility] Serum or plasma total biliru bin measurement (mass/volume)Ordered By: Christine Sanchez on 10-26-2022 Bilirubin [Mass/Vol] 0.8 mg/dL 0.3-1.2 [facility] Serum or plasma total carbon dioxide measurement (moles/volume)Ordered By: Christine Sanchez on 10-26-2022 CO2 [Moles/Vol] 21.2 mmol/L 22.0-30.0 [facility] Serum or plasma urea nitroge n measurement (mass/volume)Ordered By: Christine Sanchez on 10-26-2022 Urea nitrogen [Mass/Vol] 16 mg/dL 9-23 [facility] Specific gravity Auto test s trip (U) [Rel density]Ordered By: Christine Sanchez on 10-26-2022 Specific gravity (U) [Rel density] 1.024 1.001-1.03 0 [facility] Squamous epithelial cells de tection in urine sediment by light microscopyOrdered By: Christine Sanchez on 10-26-2022 Epithelial cells.squamous LM Ql (Urine sed) None seen [HPF] 0-2 [facility] Urine bacteria detection by automated methodOrdered By: Christine Sanchez on 10-26-2022 Bacteria Auto Ql (U) None seen None Seen [facility] Urine clarity by refractomet ry automatedOrdered By: Christine Sanchez on 10-26-2022 Clarity Refractometry automated (U) Clear Clear [facility] Urine glucose measurement by automated test strip (mass/volume)Ordered By: Christine Sanchez on 10-26-2022 Glucose Auto test strip (U) [Mass/Vol] Normal mg/dL Normal [facility] Urine hemoglobin detection b y automated test stripOrdered By: Christine Sanchez on 10-26-2022 Hemoglobin Auto test strip Ql (U) Negative Negative [facility] Urine leukocyte esterase det ection by automated test stripOrdered By: Christine Sanchez on 10-26-2022 Leukocyte esterase Auto test strip Ql (U) Negative Negative [facility] Urobilinogen Auto test strip (U) [Mass/Vol]Ordered By: Christine Sanchez on 10-26-2022 Urobilinogen (U) [Mass/Vol] Normal mg/dL Normal [facility] WBC Auto (Bld) [#/Vol]Ordere d By: Christine Sanchez on 10-26-2022 WBC (Bld) [#/Vol] 4.7 10*3/uL 4.1-10.5 [facility] pH Auto test strip (U)Ordere d By: Christine Sanchez on 10-26-2022 pH (U) 5.5 [pH] 5.0-9.0 [facility] Automated erythrocytes count in urine sediment (number/area)Ordered By: Christine Sanchez on 07-21-2022 RBC Auto (Urine sed) [#/Area] 0-1 [HPF] 0-4 [facility] Automated leukocytes count i n urine sediment (number/area)Ordered By: Christine Sanchez on 07-21-2022 WBC Auto (Urine sed) [#/Area] 0-1 [HPF] 0-4 [facility] Basophils Auto (Bld) [#/Vol] Ordered By: Christine Sanchez on 07-21-2022 Basophils (Bld) [#/Vol] 0.0 10*3/uL 0.0-0.2 [facility] Basophils/100 WBC Auto (Bld) Ordered By: Christine Sanchez on 07-21-2022 Basophils/100 WBC (Bld) 0.6 % . [facility] Bilirubin Test strip Ql (U)O rdered By: Christine Sanchez on 07-21-2022 Bilirubin Ql (U) Negative Negative [facility] Body fluid albumin measureme nt (mass/volume)Ordered By: Christine Sanchez on 07-21-2022 Albumin (Body fld) [Mass/Vol] 3.9 g/dL 3.2-5.5 [facility] Color Auto (U)Ordered By: Marianna Arellano on 07-21-2022 Color (U) Yellow Yellow [facility] Creatinine and Glomerular fi ltration rate.predicted panel (S/P/Bld)Ordered By: Christine Sanchez on 07-21-2022 Creatinine [Mass/Vol] 0.91 mg/dL 0.64-1.27 [facility] Eosinophils Auto (Bld) [#/Vo l]Ordered By: Christine Sanchez on 07-21-2022 Eosinophils (Bld) [#/Vol] 0.1 10*3/uL 0.0-0.45 [facility] Eosinophils/100 WBC Auto (Bl d)Ordered By: Christine Sanchez on 07-21-2022 Eosinophils/100 WBC (Bld) 1.6 % . [facility] Erythrocyte distribution wid th Auto (RBC) [Ratio]Ordered By: Christine Sanchez on 07-21-2022 Erythrocyte distribution width (RBC) [Ratio] 15.2 % 12.0-14.8 [facility] Erythrocyte sedimentation ra te by Photometric methodOrdered By: Christine Sanchez on 07-21-2022 ESR Photometric method (Bld) [Velocity] 9 mm/hr 0-19 [facility] Estimated glomerular filtrat ion rate (GFR) non- AmericanOrdered By: Christine Sanchez on 07-21-2022 GFR/1.73 sq M.predicted among non-blacks MDRD (S/P/Bld) [Vol rate/Area] > 60 mL/Min [facility] Globulin Calc (S) [Mass/Vol] Ordered By: Christine Sanchez on 07-21-2022 Globulin (S) [Mass/Vol] 2.1 g/dL [facility] Hematocrit Auto (Bld) [Volum e fraction]Ordered By: Christine Sanchez on 07-21-2022 Hematocrit (Bld) [Volume fraction] 45.4 % 38.8-50.0 [facility] Hemoglobin [Mass/volume] in BloodOrdered By: Christine Sanchez on 07-21-2022 Hemoglobin (Bld) [Mass/Vol] 15.2 g/dL 13.0-17.0 [facility] Ketones Auto test strip (U) [Mass/Vol]Ordered By: Christine Sanchez on 07-21-2022 Ketones (U) [Mass/Vol] Negative Negative [facility] - Hematology and Cell countsOrdered By: Christine Sanchez on 07-21-2022 Nucleated RBC/100 WBC (Bld) [Ratio] 0.1 % 0-0.5 [facility] - UrinalysisOrder ed By: Christine Sanchez on 07-21-2022 Hyaline casts LM Ql (Urine sed) 0-8 [LPF] 0-8 [facility] Leukocytes [#/volume] in Blo od by Automated countOrdered By: Christine Sanchez on 07-21-2022 WBC (Bld) [#/Vol] 6.6 10*3/uL 4.5-11.0 [facility] Lymphocytes Auto (Bld) [#/Vo l]Ordered By: Christine Sanchez on 07-21-2022 Lymphocytes (Bld) [#/Vol] 0.8 10*3/uL 1.00-4.8 [facility] Lymphocytes/100 WBC Auto (Bl d)Ordered By: Christine Sanchez on 07-21-2022 Lymphocytes/100 WBC (Bld) 11.5 % . [facility] MCH Auto (RBC) [Entitic mass ]Ordered By: Christine Sanchez on 07-21-2022 MCH (RBC) [Entitic mass] 30.3 pg 27.5-35.2 [facility] MCHC Auto (RBC) [Mass/Vol]Or dered By: Christine Sanchez on 07-21-2022 MCHC (RBC) [Mass/Vol] 33.5 g/dL 32.5-35.6 [facility] MCV Auto (RBC) [Entitic vol] Ordered By: Christine Sanchez on 07-21-2022 MCV (RBC) [Entitic vol] 90.4 fL 83.5-101 [facility] Monocytes Auto (Bld) [#/Vol] Ordered By: Christine Sanchez on 07-21-2022 Monocytes (Bld) [#/Vol] 0.9 10*3/uL 0.0-0.8 [facility] Monocytes/100 WBC Auto (Bld) Ordered By: Christine Sanchez on 07-21-2022 Monocytes/100 WBC (Bld) 13.7 % . [facility] Neutrophils Auto (Bld) [#/Vo l]Ordered By: Christine Sanchez on 07-21-2022 Neutrophils (Bld) [#/Vol] 4.8 10*3/uL 1.8-7.7 [facility] Neutrophils/100 WBC Auto (Bl d)Ordered By: Christine Sanchez on 07-21-2022 Neutrophils/100 WBC (Bld) 72.6 % . [facility] Nitrite Test strip Ql (U)Ord ered By: Christine Sanchez on 07-21-2022 Nitrite Ql (U) Negative Negative [facility] No Panel InformationOrdered By: Christine Sanchez on 07-21-2022 Estimated GFR () > 60 mL/Min [facility] Comment on above: GFR estimated refere nce range: According to KDOQI guidelines, <60 ml/min/1.73m2 is sufficient to diagnose a patient with chronic kidney disease. Pharmacy Creatinine Clearance (Chem N/A [facility] Total Complement (CH50) >60 U/mL >41 [facility] Comment on above: Age Male Female [...] to determine out of range values.Performed at: [employer] [id number] Director: Richy Ardon PhD, Phone: [phone] Platelet mean volume Auto (B ld) [Entitic vol]Ordered By: Christine Sanchez on 07-21-2022 Platelet mean volume (Bld) [Entitic vol] 8.4 fL 6.6-10.1 [facility] Platelets Auto (Bld) [#/Vol] Ordered By: Christine Sanchez on 07-21-2022 Platelets (Bld) [#/Vol] 185 10*3/uL 150-450 [facility] Protein Auto test strip (U) [Mass/Vol]Ordered By: Christine Sanchez on 07-21-2022 Protein (U) [Mass/Vol] Negative Negative [facility] Protein [Mass/volume] in Ser um or PlasmaOrdered By: Christine Sanchez on 07-21-2022 Protein [Mass/Vol] 6.0 g/dL 6.1-7.9 [facility] RBC Auto (Bld) [#/Vol]Ordere d By: Christine Sanchez on 07-21-2022 RBC (Bld) [#/Vol] 5.03 10*6/uL 3.90-5.60 [facility] Serum or plasma alanine calvert otransferase measurement without P-5'-P (enzymatic activiOrdered By: Christine Sanchez on 07-21-2022 ALT No additional P-5'-P [Catalytic activity/Vol] 35 U/L 1060 [facility] Serum or plasma albumin/glob ulin mass ratioOrdered By: Christine Sanchez on 07-21-2022 Albumin/Globulin [Mass ratio] 1.9 {ratio} [facility] Serum or plasma alkaline kelsie sphatase measurement (enzymatic activity/volume)Ordered By: Christine Sanchez on 07-21-2022 ALP [Catalytic activity/Vol] 81 U/L 32-92 [facility] Serum or plasma anion gap de terminationOrdered By: Christine Sanchez on 07-21-2022 Anion gap [Moles/Vol] 13.7 mmol/L 6.0-15.0 [facility] Serum or plasma aspartate am inotransferase measurement (enzymatic activity/volume)Ordered By: Christine Sanchez on 07-21-2022 AST [Catalytic activity/Vol] 20 U/L 1042 [facility] Serum or plasma calcium ophelia urement (mass/volume)Ordered By: Christine Sanchez on 07-21-2022 Calcium [Mass/Vol] 9.5 mg/dL 8.2-10.2 [facility] Serum or plasma chloride arelis surement (moles/volume)Ordered By: Christine Sanchez on 07-21-2022 Chloride [Moles/Vol] 103 mmol/L 95-114 [facility] Serum or plasma complement C 3 measurement (mass/volume)Ordered By: Christine Sanchez on 07-21-2022 Complement C3 [Mass/Vol] 145 mg/dL 82-167 [facility] Comment on above: Performed at: [address] [id number] Director: Richy Ardon PhD, Phone: [phone] Serum or plasma complement C 4 measurement (mass/volume)Ordered By: Christine Sanchez on 07-21-2022 Complement C4 [Mass/Vol] 23 mg/dL 12 [facility] Serum or plasma glucose ophelia urement (mass/volume)Ordered By: Christine Sanchez on 07-21-2022 Glucose [Mass/Vol] 83 mg/dL 70-100 [facility] Comment on above: ADA recommended refe rence rangeRandom Glucose Reference Range is dependent on time and content of last meal. Glucose of more than 200 mg/dL in a nonstressed, ambulatory subject supports the diagnosis of Diabetes Mellitus. Serum or plasma potassium me asurement (moles/volume)Ordered By: Christine Sanchez on 07-21-2022 Potassium [Moles/Vol] 4.1 mmol/L 3.5-5.1 [facility] Serum or plasma sodium measu rement (moles/volume)Ordered By: Christine Sanchez on 07-21-2022 Sodium [Moles/Vol] 135 mmol/L 136-146 [facility] Serum or plasma total biliru bin measurement (mass/volume)Ordered By: Christine Sanchez on 07-21-2022 Bilirubin [Mass/Vol] 0.9 mg/dL 0.3-1.2 [facility] Serum or plasma total carbon dioxide measurement (moles/volume)Ordered By: Christine Sanchez on 07-21-2022 CO2 [Moles/Vol] 22.4 mmol/L 22.0-30.0 [facility] Serum or plasma urea nitroge n measurement (mass/volume)Ordered By: Christine Sanchez on 07-21-2022 Urea nitrogen [Mass/Vol] 15 mg/dL 08-13 [facility] Specific gravity Auto test s trip (U) [Rel density]Ordered By: Christine Sanchez on 07-21-2022 Specific gravity (U) [Rel density] 1.020 1.001-1.03 0 [facility] Squamous epithelial cells de tection in urine sediment by light microscopyOrdered By: Christine Sanchez on 07-21-2022 Epithelial cells.squamous LM Ql (Urine sed) None seen [HPF] 0-2 [facility] Urine bacteria detection by automated methodOrdered By: Christine Sanchez on 07-21-2022 Bacteria Auto Ql (U) None seen None Seen [facility] Urine clarity by refractomet ry automatedOrdered By: Christine Sanchez on 07-21-2022 Clarity Refractometry automated (U) Clear Clear [facility] Urine glucose measurement by automated test strip (mass/volume)Ordered By: Christine Sanchez on 07-21-2022 Glucose Auto test strip (U) [Mass/Vol] Normal mg/dL Normal [facility] Urine hemoglobin detection b y automated test stripOrdered By: Christine Sanchez on 07-21-2022 Hemoglobin Auto test strip Ql (U) Negative Negative [facility] Urine leukocyte esterase det ection by automated test stripOrdered By: Christine Sanchez on 07-21-2022 Leukocyte esterase Auto test strip Ql (U) Negative Negative [facility] Urobilinogen Auto test strip (U) [Mass/Vol]Ordered By: Christine Sanchez on 07-21-2022 Urobilinogen (U) [Mass/Vol] Normal mg/dL Normal [facility] pH Auto test strip (U)Ordere d By: Christine Sanhcez on 07-21-2022 pH (U) 6.0 [pH] 5.0-9.0 [facility] Automated erythrocytes count in urine sediment (number/area)Ordered By: Romel Davis on 04-14-2022 RBC Auto (Urine sed) [#/Area] 5-9 [HPF] [facility] Automated leukocytes count i n urine sediment (number/area)Ordered By: Romel Davis on 04-14-2022 WBC Auto (Urine sed) [#/Area] 0-1 [HPF] [facility] Basophils Auto (Bld) [#/Vol] Ordered By: Romel Davis on 04-14-2022 Basophils (Bld) [#/Vol] 0.0 10*3/uL 0.0-0.2 [facility] Basophils/100 WBC Auto (Bld) Ordered By: Romel Davis on 04-14-2022 Basophils/100 WBC (Bld) 0.6 % [facility] Bilirubin Test strip Ql (U)O rdered By: Romel Davis on 04-14-2022 Bilirubin Ql (U) Negative Negative [facility] Blood hemoglobin measurement (mass/volume)Ordered By: Romel Davis on 04-14-2022 Hemoglobin (Bld) [Mass/Vol] 15.4 g/dL 13.0-17.0 [facility] Blood leukocytes automated c ount (number/volume)Ordered By: Romel Davis on 04-14-2022 WBC (Bld) [#/Vol] 5.8 10*3/uL 4.5-11.0 [facility] Body fluid albumin measureme nt (mass/volume)Ordered By: Romel Davis on 04-14-2022 Albumin (Body fld) [Mass/Vol] 3.9 g/dL 3.2-5.5 [facility] Cholesterol [Mass/volume] in Serum or PlasmaOrdered By: Sascha Sutton on 04-14-2022 Cholesterol [Mass/Vol] 125 mg/dL 140-200 [facility] Comment on above: Chol less than 200 m g/dl low risk Chol 201-239 mg/dl borderline risk Chol 240 mg/dl and greater high risk Cholesterol in LDL Calc [Mas s/Vol]Ordered By: Sascha Sutton on 04-14-2022 Cholesterol in LDL [Mass/Vol] 69 mg/dL 0-100 [facility] Comment on above: LDL ATP III CLASSIFI CATION LDL less than 100 mg/dL Optimal LDL 100-129 mg/dL Near or above optimal LDL 130-159 mg/dL Borderline high LDL 160-189 mg/dL High LDL greater than 189 mg/dL Very high Cholesterol in VLDL Calc [Ma ss/Vol]Ordered By: Sascha Sutton on 04-14-2022 Cholesterol in VLDL [Mass/Vol] 15 mg/dL [facility] Color Auto (U)Ordered By: Bridgett Davis on 04-14-2022 Color (U) Yellow Yellow [facility] Creatinine and Glomerular fi ltration rate.predicted panel (S/P/Bld)Ordered By: Romel Davis on 04-14-2022 Creatinine [Mass/Vol] 0.86 mg/dL 0.64-1.27 [facility] Eosinophils Auto (Bld) [#/Vo l]Ordered By: Romel Davis on 04-14-2022 Eosinophils (Bld) [#/Vol] 0.1 10*3/uL 0.0-0.45 [facility] Eosinophils/100 WBC Auto (Bl d)Ordered By: Romel Davis on 04-14-2022 Eosinophils/100 WBC (Bld) 1.5 % [facility] Erythrocyte distribution wid th Auto (RBC) [Ratio]Ordered By: Romel Davis on 04-14-2022 Erythrocyte distribution width (RBC) [Ratio] 14.6 % 12.0-14.8 [facility] Erythrocyte sedimentation ra te by Photometric methodOrdered By: Romel Davis on 04-14-2022 ESR Photometric method (d) [Velocity] 5 mm/hr 0-19 [facility] Estimated glomerular filtrat ion rate (GFR) non- AmericanOrdered By: Romel Davis on 04-14-2022 GFR/1.73 sq M.predicted among non-blacks MDRD (S/P/Bld) [Vol rate/Area] > 60 mL/Min [facility] Globulin Calc (S) [Mass/Vol] Ordered By: Romel Davis on 04-14-2022 Globulin (S) [Mass/Vol] 2.3 g/dL [facility] Hematocrit Auto (Bld) [Volum e fraction]Ordered By: Romel Davis on 04-14-2022 Hematocrit (Bld) [Volume fraction] 45.0 % 38.8-50.0 [facility] Ketones Auto test strip (U) [Mass/Vol]Ordered By: Romel Davis on 04-14-2022 Ketones (U) [Mass/Vol] Trace Negative [facility] - Hematology and Cell countsOrdered By: Romel Davis on 04-14-2022 Nucleated RBC/100 WBC (Bld) [Ratio] 0.1 % 0-0.5 [facility] Laboratory - UrinalysisOrder ed By: Romel Davis on 05-25-2022 Hyaline casts LM Ql (Urine sed) 0-8 [LPF] [facility] Lymphocytes Auto (Bld) [#/Vo l]Ordered By: Romel Davis on 04-14-2022 Lymphocytes (Bld) [#/Vol] 0.6 10*3/uL 1.00-4.8 [facility] Lymphocytes/100 WBC Auto (Bl d)Ordered By: Romel Davis on 04-14-2022 Lymphocytes/100 WBC (Bld) 10.9 % [facility] MCH Auto (RBC) [Entitic mass ]Ordered By: Romel Davis on 04-14-2022 MCH (RBC) [Entitic mass] 30.5 pg 27.5-35.2 [facility] MCHC Auto (RBC) [Mass/Vol]Or dered By: Romel Davis on 04-14-2022 MCHC (RBC) [Mass/Vol] 34.2 g/dL 32.5-35.6 [facility] MCV Auto (RBC) [Entitic vol] Ordered By: Romel Davis on 04-14-2022 MCV (RBC) [Entitic vol] 89.3 fL 83.5-101 [facility] Monocytes Auto (Bld) [#/Vol] Ordered By: Romel Davis on 04-14-2022 Monocytes (Bld) [#/Vol] 0.7 10*3/uL 0.0-0.8 [facility] Monocytes/100 WBC Auto (Bld) Ordered By: Romel Davis on 04-14-2022 Monocytes/100 WBC (Bld) 12.2 % [facility] Neutrophils Auto (Bld) [#/Vo l]Ordered By: Romel Davis on 04-14-2022 Neutrophils (Bld) [#/Vol] 4.4 10*3/uL 1.8-7.7 [facility] Neutrophils/100 WBC Auto (Bl d)Ordered By: Romel Davis on 04-14-2022 Neutrophils/100 WBC (Bld) 74.8 % [facility] Nitrite Test strip Ql (U)Ord ered By: Romel Davis on 04-14-2022 Nitrite Ql (U) Negative Negative [facility] No Panel InformationOrdered By: Romel Davis on 04-14-2022 Estimated GFR () > 60 mL/Min [facility] Comment on above: GFR estimated refere nce range: According to KDOQI guidelines, <60 ml/min/1.73m2 is sufficient to diagnose a patient with chronic kidney disease. Pharmacy Creatinine Clearance (Chem N/A [facility] No Panel InformationOrdered By: Sascha Cynthiacierra on 04-14-2022 Prostate Specific Antigen Screen 1.930 ng/mL 0.000-4.00 0 [facility] Platelet mean volume Auto (B ld) [Entitic vol]Ordered By: Romel Davis on 04-14-2022 Platelet mean volume (Bld) [Entitic vol] 8.8 fL 6.6-10.1 [facility] Platelets Auto (Bld) [#/Vol] Ordered By: Romel Davis on 04-14-2022 Platelets (Bld) [#/Vol] 181 10*3/uL 150-450 [facility] Protein Auto test strip (U) [Mass/Vol]Ordered By: Romel Davis on 04-14-2022 Protein (U) [Mass/Vol] Trace mg/dL Negative [facility] Protein [Mass/volume] in Ser um or PlasmaOrdered By: Romel Davis on 04-14-2022 Protein [Mass/Vol] 6.2 g/dL 6.1-7.9 [facility] RBC Auto (Bld) [#/Vol]Ordere d By: Romel Davis on 04-14-2022 RBC (Bld) [#/Vol] 5.03 10*6/uL 3.90-5.60 [facility] Serum or plasma alanine calvert otransferase measurement without P-5'-P (enzymatic activiOrdered By: Romel Davis on 04-14-2022 ALT No additional P-5'-P [Catalytic activity/Vol] 27 U/L 10-60 [facility] Serum or plasma albumin/glob ulin mass ratioOrdered By: Romel Davis on 04-14-2022 Albumin/Globulin [Mass ratio] 1.7 {ratio} [facility] Serum or plasma alkaline kelsie sphatase measurement (enzymatic activity/volume)Ordered By: Romel Davis on 04-14-2022 ALP [Catalytic activity/Vol] 77 U/L 32-92 [facility] Serum or plasma aspartate am inotransferase measurement (enzymatic activity/volume)Ordered By: Romel Davis on 04-14-2022 AST [Catalytic activity/Vol] 20 U/L 10-42 [facility] Serum or plasma calcium ophelia urement (mass/volume)Ordered By: Romel Davis on 04-14-2022 Calcium [Mass/Vol] 9.0 mg/dL 8.2-10.2 [facility] Serum or plasma chloride arelis surement (moles/volume)Ordered By: Romel Davis on 04-14-2022 Chloride [Moles/Vol] 104 mmol/L 95-114 [facility] Serum or plasma glucose ophelia urement (mass/volume)Ordered By: Romel Davis on 04-14-2022 Glucose [Mass/Vol] 110 mg/dL 70-100 [facility] Comment on above: ADA recommended refe rence range Random Glucose Reference Range is dependent on time and content of last meal. Glucose of more than 200 mg/dL in a nonstressed, ambulatory subject supports the diagnosis of Diabetes Mellitus. Serum or plasma high density lipoprotein (HDL) cholesterol measurementOrdered By: Sascha Sutton on 04-14-2022 Cholesterol in HDL [Mass/Vol] 41 mg/dL 29-71 [facility] Comment on above: HDL CHOL ATP-III CLA SSIFICATION Cardiovascular Risk HDL > or equal to 60 mg/dL LOW HDL < 40 mg/dL HIGH Serum or plasma potassium me asurement (moles/volume)Ordered By: Romel Davis on 04-14-2022 Potassium [Moles/Vol] 3.9 mmol/L 3.5-5.1 [facility] Serum or plasma sodium measu rement (moles/volume)Ordered By: Romel Davis on 04-14-2022 Sodium [Moles/Vol] 136 mmol/L 136-146 [facility] Serum or plasma total biliru bin measurement (mass/volume)Ordered By: Romel Davis on 04-14-2022 Bilirubin [Mass/Vol] 0.9 mg/dL 0.3-1.2 [facility] Serum or plasma total carbon dioxide measurement (moles/volume)Ordered By: Romel Davis on 04-14-2022 CO2 [Moles/Vol] 21.2 mmol/L 22.0-30.0 [facility] Serum or plasma total choles terol/high density lipoprotein (HDL) cholesterol mass ratOrdered By: Sascha Sutton on 04-14-2022 Cholesterol.total/Chol esterol in HDL [Mass ratio] 3.0 {ratio} [facility] Serum or plasma urea nitroge n measurement (mass/volume)Ordered By: Romel Davis on 04-14-2022 Urea nitrogen [Mass/Vol] 16 mg/dL 9-23 [facility] Specific gravity Auto test s trip (U) [Rel density]Ordered By: Romel Davis on 04-14-2022 Specific gravity (U) [Rel density] 1.025 1.001-1.03 0 [facility] Squamous epithelial cells de tection in urine sediment by light microscopyOrdered By: Romel Davis on 04-14-2022 Epithelial cells.squamous LM Ql (Urine sed) 0-1 [HPF] [facility] Triglyceride [Mass/volume] i n Serum or PlasmaOrdered By: Sascha Sutton on 04-14-2022 Triglyceride [Mass/Vol] 75 mg/dL 35-149 [facility] Comment on above: TRIG ATP III CLASSIF ICATION TRIG less than 150 mg/dL Normal TRIG 150-199 mg/dL Borderline high TRIG 200-500 mg/dL High TRIG greater than 500 mg/dL Very high Standard traceable to the Center for Disease Conrtrol and Prevention (CDC) test method. Urine bacteria detection by automated methodOrdered By: Romel Davis on 04-14-2022 Bacteria Auto Ql (U) None seen None Seen [facility] Urine clarity by refractomet ry automatedOrdered By: Romel Davis on 04-14-2022 Clarity Refractometry automated (U) Turbid Clear [facility] Urine glucose measurement by automated test strip (mass/volume)Ordered By: Romel Davis on 04-14-2022 Glucose Auto test strip (U) [Mass/Vol] Normal mg/dL Normal [facility] Urine hemoglobin detection b y automated test stripOrdered By: Romel Ryan on 04-14-2022 Hemoglobin Auto test strip Ql (U) Negative Negative [facility] Urine leukocyte esterase det ection by automated test stripOrdered By: Romel Mendezrow on 04-14-2022 Leukocyte esterase Auto test strip Ql (U) Negative Negative [facility] Urobilinogen Auto test strip (U) [Mass/Vol]Ordered By: Romel Ryan on 04-14-2022 Urobilinogen (U) [Mass/Vol] Normal mg/dL Normal [facility] pH Auto test strip (U)Ordere d By: Romel Ryan on 04-14-2022 pH (U) 5.5 [pH] 5.0-9.[address] [facility] [address] CSPINE WO CONon CT CSPINE WO CON EXAMINATION: CT CSPI [...] by: PRIMO GALE Date: 2022-04-09 17:03 Normal [facility] CT HEAD WO CONon 04-09-2022 CT HEAD [...] by: PRIMO GALE Date: 2022-04-09 17:00 Normal [facility] CT TSPINE WO CONon 2 CT TSPINE [...] by: PRIMO GALE Date: 2022-04-09 17:10 Normal [facility] CT ABDOMEN AND PELVIS W/O CO NTRASTon 04-25-2018 CT ABDOMEN AND PELVIS W/O CONTRAST Performed at [facility] APPROVED BY: JOSE CRUZ [...] the detailed report for complete information. Normal [facility] Comprehensive Panelon 2017 Albumin 4.3 g/dL Normal 3.4-5.0 [facility] Comment on above: Performed By: #### S P14 ####[address] [address] Alkaline phosphatase (ALP) 87 U/L Normal 46-116 [facility] Comment on above: Performed By: #### S P14 ####[address] [address] ALT-SGPT Blood 38 U/L Normal 12-78 [facility] Comment on above: Performed By: #### S P14 ####[place] [address] Anion gap 13 mmol/L Normal 8-16 [facility] Comment on above: Performed By: #### S P14 ####[place] [address] AST-SGOT Blood 22 U/L Normal 15-46 [facility] Comment on above: Performed By: #### S P14 ####[place] [address] Bilirubin Ql (U) 0.9 mg/dL Normal 0.2-1.0 [facility] Comment on above: Performed By: #### S P14 ####[address] [address] BUN (urea nitrogen) 20 mg/dL High 7-18 [facility] Comment on above: Performed By: #### S P14 ####[address] [address] Calcium 9.0 mg/dL Normal 8.5-10.1 [facility] Comment on above: Performed By: #### S P14 ####[place] [address] Chloride 104 mmol/L Normal 98-107 [facility] Comment on above: Performed By: #### S P14 ####[place] [address] CO2 24 mmol/L Normal 21-32 [facility] Comment on above: Performed By: #### S P14 ####[facility] [place] [address] Creatinine 0.93 mg/dL Normal 0.67-1.17 [facility] Comment on above: Performed By: #### S P14 ####[facility] [place] [address] Glucose mass conc 142 mg/dL High 70-99 [facility] Comment on above: Performed By: #### S P14 ####[facility] [place] [address] Potassium molar conc 3.8 mmol/L Normal 3.5-5.1 [facility] Comment on above: Performed By: #### S P14 ####[place] [address] Protein 7.4 g/dL Normal 6.4-8.2 [facility] Comment on above: Performed By: #### S P14 ####[place] [address] Sodium 137 mmol/L Normal 136-145 [facility] Comment on above: Performed By: #### S P14 ####[place] [address] ED NOTEon 04-25-2018 ED NOTE HNO ID: [id number] Author: Minerva Zepeda RN Service: Emergency Medicine Author Type: Registered Nurse Type: ED Notes Filed: 04/25/2018 5:51 AM Note Text: Voided 150 cc light yellow urine which was strained: no stone noted Normal [facility] ED NOTE HNO ID: [id number] Author: Minerva GarciaRn) KATHE Zepeda Service: Emergency Medicine Author Type: Registered Nurse Type: ED Notes Filed: 04/25/2018 3:34 AM Note Text: Patient returned to the Emergency Department. Normal [facility] ED NOTE HNO ID: [id number] Author: Valentine Stratton RN Service: Emergency Medicine Author Type: Registered Nurse Type: ED Notes Filed: 04/25/2018 3:30 AM Note Text: Patient transported to ct/cart Normal [facility] ED NOTE HNO ID: [id number] Author: Valentine (Rn) KATHE Stratton Service: Emergency Medicine Author Type: Registered Nurse Type: ED Notes Filed: 04/25/2018 3:21 AM Note Text: Warm b lanket given, labs drawn with IV start AND sent, medicated for paIN PER ORDER Normal [facility] ED NOTE HNO ID: [id number] thor: Minerva (Rn) DIEGO Zepedaervice: Emergency MedicineAuthor Type: Registered NurseType: ED NotesFiled: 04/25/2018 2:55 AMNote Text:c/o pain left lower abdomen that began around 12:30 AM-- pain woke pt upand is assoc with nausea. Vomited small amt food particles upon arrival toed Rm Normal [facility] ED PROV NOTEon 04-25-2018 ED PROV NOTE HNO ID: [id number] thor: STEPHANIE Gillervice: Emergency MedicineAuthor Type: PhysicianType: ED Provider NotesFiled: 04/25/2018 6:48 AMNote Text:ED Provider NotePatient Name: Valentin TorreMRN: [id number] DATE: 04/25/18HistoryPatient presents with:Abdominal PainPatient is a [...] 10.24 (*) 1.35 - 7.21 thou/cmm Abs. [place] 0.84 (*) 0.19 - 0.80 thou/cmm All [...] up withurology as an outpatient. They're from [place] and he will follow-upwith the urologist there. He was discharged home in improved condition.He is happy with his care and comfortable with the plan.ED Course / Clinical ImpressionClinical Impressions as of Apr 25 0647Ureteral calculus, leftHydronephrosis with urinary obstruction due to renal calculusPlanSIGNATURE: Jose De Jesus Gill MD/04/07 0648 Normal [facility] Hemogram/Diffon 04-25-2018 Abs. Baso 0.02 thou/cmm Normal 0.00-0.08 [facility] Comment on above: Performed By: #### S CBCD ####[facility] [place], [place] [address] Abs. [place] 0.84 thou/cmm High 0.19-0.80 [facility] Comment on above: Performed By: #### S CBCD ####[address] [address] Abs. Neut (ANC) 10.24 thou/cmm High 1.35-7.21 [facility] Comment on above: Performed By: #### S CBCD ####[place] [address] Basophils/100 WBC Auto (Bld) 0.2 % Normal [facility] Comment on above: Performed By: #### S CBCD ####[place] [address] Eosinophils 0.04 thou/cmm Normal 0.00-0.36 [facility] Comment on above: Performed By: #### S CBCD ####[place] [address] Eosinophils/100 leukocytes 0.3 % Normal [facility] Comment on above: Performed By: #### S CBCD ####[place] [address] Erythrocyte distribution width Auto Ratio (RBC) 13.7 % Normal 11.8-14.5 [facility] Comment on above: Performed By: #### S CBCD ####[place] [address] Erythrocytes (RBC) 5.26 mil/cmm Normal 4.22-5.80 [facility] Comment on above: Performed By: #### S CBCD ####[place] [address] Hematocrit (HCT) 47.0 % Normal 39.6-50.7 [facility] Comment on above: Performed By: #### S CBCD ####[place] [address] Hemoglobin mass conc (Bld) 16.2 g/dL Normal 13.2-17.4 [facility] Comment on above: Performed By: #### S CBCD ####[facility] [place], [place] [address] Lymphocytes 0.83 thou/cmm Normal 0.68-2.93 [facility] Comment on above: Performed By: #### S CBCD ####[address] [address] Lymphocytes/100 leukocytes 6.9 % Normal [facility] Comment on above: Performed By: #### S CBCD ####[address] [address] MCH 30.8 pg Normal 27.4-32.8 [facility] Comment on above: Performed By: #### S CBCD ####[address] [address] MCHC mass conc (RBC) 34.5 % Normal 31.9-35.6 [facility] Comment on above: Performed By: #### S CBCD ####[address] [address] MCV 89.4 fL Normal 81.8-95.6 [facility] Comment on above: Performed By: #### S CBCD ####[address] [address] Monocytes/100 leukocytes 7.0 % Normal [facility] Comment on above: Performed By: #### S CBCD ####[address] [address] Platelet mean volume (PMV) 10.1 fL Normal 8.8-12.1 [facility] Comment on above: Performed By: #### S CBCD ####[address] [address] Platelets 169 thou/cmm Normal 150-370 [facility] Comment on above: Performed By: #### S CBCD ####[address] [address] Seg Neutrophil 85.6 % Normal [facility] Comment on above: Performed By: #### S CBCD ####[address] [place] [address] WBC (Leukocytes) 12.0 thou/cmm High 4.4-9.7 [facility] Comment on above: Performed By: #### S CBCD ####[address] [address] Lipase Bloodon 04-25-2018 Lipase Blood 155 U/L Normal 73-393 [facility] Comment on above: Performed By: #### S LIP ####[place] [id number] MDRD eGFRon 04-25-2018 eGFR (non-black) mL/min/{1.73_m2} Normal >60mL/m in/ 1.73m2 [facility] Comment on above: Result Comment: If t he patient is , multiply the result by 1.210. Performed By: #### S GFR ####[place] [address] Urinalysis Routineon 018 Bilirubin Urine Negative Normal Negative [facility] Comment on above: Performed By: #### S URIN ####[address] [address] Ep Cells Urine NONE Normal 0-5 [facility] Comment on above: Performed By: #### S URIN ####[place] [address] Hemoglobin,Urine TRACE-INTACT Abnormal Negative [facility] Comment on above: Performed By: #### S URIN ####[place] [address] Ketone Urine 15 mg/dL Abnormal Negative [facility] Comment on above: Performed By: #### S URIN ####[address] [address] Nitrites Urine Negative Normal Negative [facility] Comment on above: Performed By: #### S URIN ####[address] [address] Protein Urine Negative Normal Negative [facility] Comment on above: Performed By: #### S URIN ####[place] [address] Specific [place], Ur 1.020 Normal 1.005-1 .03 0 [facility] Comment on above: Performed By: #### S URIN ####[facility] [place] [address] Urine, appearance CLEAR Normal [facility] Comment on above: Performed By: #### S URIN ####[place] [address] Urine, bacteria in sediment NONE Normal None [facility] Comment on above: Performed By: #### S URIN ####[place] [address] Urine, color YELLOW Normal [facility] Comment on above: Performed By: #### S URIN ####[place] [address] Urine, erythrocytes in sediment by area 7-12 Normal 0-3 [facility] Comment on above: Performed By: #### S URIN ####[place] [address] Urine, glucose presence Negative Normal Negative [facility] Comment on above: Performed By: #### S URIN ####[place] [address] Urine, leukocytes in sedmiment 0-2 Normal 0-5 [facility] Comment on above: Performed By: #### S URIN ####[place] [address] Urine, pH 7.0 [pH] Normal 5.0-8.0 [facility] Comment on above: Performed By: #### S URIN ####[place] [address] Urobilinogen,Ur 0.2 EU/dL Normal 0.0-1.0 [facility] Comment on above: Performed By: #### S URIN ####[place] [address] WBC (Leukocytes) Negative Normal Negative [facility] Comment on above: Performed By: #### S URIN ####[place] [id number] Vital Signs Date Time Vital Sign Value Performing Clinician Facility 10-15-2024 09:44-0500 Body height 172.7 cm Whit Taylor MD Work Phone: [facility] 10-15-2024 09:44-0500 Body mass index (BMI) [Ratio] 33.12 kg/m2 Whit Taylor MD Work Phone: [facility] 10-15-2024 09:44-0500 Body weight 98.79 kg Whit Taylor MD Work Phone: [facility] 10-09-2024 14:06-0500 Body height 170.2 cm Sascha Furlong DO Work Phone: [facility] 10-09-2024 14:06-0500 Body mass index (BMI) [Ratio] 34.43 kg/m2 Sascha Furlong DO Work Phone: [facility] 10-09-2024 14:06-0500 Body temperature 97.39 [degF] Sascha Furlong DO Work Phone: [facility] 10-09-2024 14:06-0500 Body weight 99.7 kg Sascha Furlong DO Work Phone: [facility] 10-09-2024 14:06-0500 Diastolic blood pressure 60 mm[Hg] Sascha Furlong DO Work Phone: [facility] 10-09-2024 14:06-0500 Heart rate 90 /min Sascha Furlong DO Work Phone: [facility] [employer] [facility] 10-09-2024 14:06-0500 Respiratory rate 22 /min Sascha Furlong DO Work Phone: [facility] 10-09-2024 14:06-0500 SaO2% (BldA) [Mass fraction] 97 % Sascha Furlong DO Work Phone: [facility] 10-09-2024 14:06-0500 Systolic blood pressure 110 mm[Hg] Sascha Furlong DO Work Phone: [facility] [employer] 09-24-2024 13:38-0500 Body mass index (BMI) [Ratio] 34.05 kg/m2 Sascha Furlong DO Work Phone: [facility] [employer] 09-24-2024 13:38-0500 Body temperature 98.1 [degF] Sascha Furlong DO Work Phone: [facility] [employer] [facility] 09-24-2024 13:38-0500 Body weight 98.61 kg Sascha Furlong DO Work Phone: [facility] [employer] [facility] 09-24-2024 13:38-0500 Diastolic blood pressure 60 mm[Hg] Sascha Furlong DO Work Phone: [facility] [employer] [facility] 09-24-2024 13:38-0500 Heart rate 80 /min Sascha Furlong DO Work Phone: [facility] [employer] [facility] 09-24-2024 13:38-0500 SaO2% (BldA) [Mass fraction] 95 % Sascha Cynthialong DO Work Phone: [facility] [employer] [facility] 09-24-2024 13:38-0500 Systolic blood pressure 108 mm[Hg] Sascha Furlong DO Work Phone: [facility] 09-19-2024 09:08-0400 Body height 172.72 cm MD Edenilson Mcleod Work Phone: [facility] [facility] 09-19-2024 09:08-0400 Body mass index (BMI) [Ratio] 32.2 kg/m2 MD Edenilson Mcleod Work Phone: [facility] 09-19-2024 09:08-0400 Body temperature 97.7 [degF] MD Edenilson Mcleod Work Phone: [facility] 09-19-2024 09:08-0400 Body weight 96.16 kg MD Edenilson Mcleod Work Phone: [facility] 09-19-2024 09:08-0400 Diastolic blood pressure 76 mm[Hg] MD Edenilson Mcleod Work Phone: [facility] 09-19-2024 09:08-0400 Heart rate 85 /min MD Edenilson Mcleod Work Phone: [facility] 09-19-2024 09:08-0400 Respiratory rate 18 /min MD Edenilson Mcleod Work Phone: [facility] 09-19-2024 09:08-0400 SaO2% (BldA) [Mass fraction] 94 % MD Edenilson Mcleod Work Phone: [facility] 09-19-2024 09:08-0400 Systolic blood pressure 124 mm[Hg] MD Edenilson Mcleod Work Phone: [facility] 09-03-2024 10:01-0400 Blood Pressure Location Zac MUNIZ [facility] 09-03-2024 10:01-0400 Body temperature 98.6 [degF] Zac MUNIZ [facility] 09-03-2024 10:01-0400 Diastolic blood pressure 77 mm[Hg] Zac MUNIZ [facility] 09-03-2024 10:01-0400 Heart rate 71 /min Zac MUNIZ [facility] 09-03-2024 10:01-0400 Respiratory rate 16 /min Zac MUNIZ [facility] 09-03-2024 10:01-0400 Systolic blood pressure 129 mm[Hg] Zac MUNIZ [facility] 08-29-2024 10:46-0400 Body height 172.72 cm MD Edenilson Mcleod Work Phone: [facility] 08-29-2024 10:46-0400 Body mass index (BMI) [Ratio] 32.2 kg/m2 MD Edenilson Mcleod Work Phone: [facility] 08-29-2024 10:46-0400 Body weight 96.16 kg MD Edenilson Mcleod Work Phone: [facility] 05-28-2024 08:56-0400 Body height 172.72 cm DO Sascha Furlong Work Phone: [facility] 05-28-2024 08:56-0400 Body mass index (BMI) [Ratio] 31.8 kg/m2 DO Sascha Furlong Work Phone: [facility] 05-28-2024 08:56-0400 Body weight 95 kg DO Sascha Furlong Work Phone: [facility] 05-15-2024 14:48-0400 Blood Pressure Location LEAH BILL [facility] 05-15-2024 14:48-0400 Diastolic blood pressure 78 mm[Hg] LEAH BILL [facility] 05-15-2024 14:48-0400 Heart rate 80 /min LEAH BILL [facility] 05-15-2024 14:48-0400 Respiratory rate 16 /min LEAH BILL [facility] 05-15-2024 14:48-0400 Systolic blood pressure 132 mm[Hg] LEAH BILL [facility] 04-24-2024 10:48-0400 Body height 172.72 cm DO Sascha Furlong Work Phone: [facility] 04-24-2024 10:48-0400 Body mass index (BMI) [Ratio] 32.1 kg/m2 DO Sascha [employer] Work Phone: [facility] 04-24-2024 10:48-0400 Body weight 95.76 kg DO Sascha Furlong Work Phone: [facility] 04-09-2024 12:35-0400 Diastolic blood pressure 68 mm[Hg] DO Sascha [employer] Work Phone: [facility] 04-09-2024 12:35-0400 Heart rate 63 /min DO Sascha [employer] Work Phone: [facility] 04-09-2024 12:35-0400 Respiratory rate 16 /min DO Sascha [employer] Work Phone: [facility] 04-09-2024 12:35-0400 SaO2% (BldA) [Mass fraction] 98 % DO Sascha [employer] Work Phone: [facility] 04-09-2024 12:35-0400 Systolic blood pressure 107 mm[Hg] DO Sascha [employer] Work Phone: [facility] 04-09-2024 12:05-0400 Inhaled oxygen flow rate 4 L/min DO Sascha [employer] Work Phone: [facility] 04-09-2024 10:16-0400 Body height 172.72 cm DO Sascha [employer] Work Phone: [facility] 04-09-2024 10:16-0400 Body mass index (BMI) [Ratio] 32.1 kg/m2 DO Sascha [employer] Work Phone: [facility] 04-09-2024 10:16-0400 Body weight 96 kg DO Sascha [employer] Work Phone: [facility] 04-09-2024 09:12-0400 Body temperature 97.8 [degF] DO Sascha Furlong Work Phone: [facility] 03-29-2024 11:07-0400 Body height 172.72 cm DO Sascha Furlong Work Phone: [facility] 03-29-2024 11:07-0400 Body mass index (BMI) [Ratio] 32.2 kg/m2 DO Sascha Furlong Work Phone: [facility] 03-29-2024 [id number] Body weight 96.16 kg DO Sascha Furlong Work Phone: [facility] 03-20-2024 12:09-0400 Blood Pressure Location Daria Orzech [facility] 03-20-2024 12:09-0400 Body temperature 97.52 [degF] Daria Orzech [facility] 03-20-2024 12:09-0400 Diastolic blood pressure 74 mm[Hg] Daria Orzech [facility] 03-20-2024 12:09-0400 Heart rate 73 /min Daria Orzech [facility] 03-20-2024 12:09-0400 Respiratory rate 19 /min Daria Orzech [facility] 03-20-2024 12:09-0400 Systolic blood pressure 124 mm[Hg] Daria Orzech [facility] 02-21-2024 10:29-0400 Body height 172.72 cm DO Sascha Furlong Work Phone: [facility] 02-21-2024 10:29-0400 Body mass index (BMI) [Ratio] 32.6 kg/m2 DO Sascha Furlong Work Phone: [facility] 02-21-2024 10:29-0400 Body weight 97.52 kg DO Sascha Furlong Work Phone: [facility] 02-09-2024 13:46-0400 Body height 172.72 cm DO Sascha Furlong Work Phone: [facility] 02-09-2024 13:46-0400 Body mass index (BMI) [Ratio] 32.3 kg/m2 DO Sascha Furlong Work Phone: [facility] 02-09-2024 13:46-0400 Body weight 96.61 kg DO Sascha Furlong Work Phone: [facility] 01-02-2024 23:55-0500 Body height 172.72 cm DO Sascha Furlong Work Phone: [facility] 01-02-2024 23:55-0500 Body temperature 97.4 [degF] DO Sascha Furlong Work Phone: [facility] 01-02-2024 23:55-0500 Body weight 100.3 kg DO Sascha Furlong Work Phone: [facility] 01-02-2024 23:55-0500 Diastolic blood pressure 100 mm[Hg] DO Sascha Furlong Work Phone: [facility] 01-02-2024 23:55-0500 Heart rate 74 /min DO Sascha Furlong Work Phone: [facility] 01-02-2024 23:55-0500 Respiratory rate 20 /min DO Sascha Furlong Work Phone: [facility] 01-02-2024 23:55-0500 SaO2% (BldA) [Mass fraction] 96 % DO Sascha Furlong Work Phone: [facility] 01-02-2024 23:55-0500 Systolic blood pressure 155 mm[Hg] DO Sascha Furlong Work Phone: [facility] 12-30-2023 09:40-0500 Body height 172.72 cm [employer] Other [employer] Other 12-30-2023 09:40-0500 Body mass index (BMI) [Ratio] 32.99 kg/m2 [employer] Other [facility] [employer] Other 12-30-2023 09:40-0500 Body weight 98.43 kg [employer] Other [facility] [employer] Other 12-14-2023 09:34-0500 Body height 172.7 cm Sascha Furlong DO Work Phone: [employer] 12-14-2023 09:34-0500 Body mass index (BMI) [Ratio] 33.49 kg/m2 Sascha Furlong DO Work Phone: [employer] 12-14-2023 09:34-0500 Body temperature 97.59 [degF] Sascha Furlong DO Work Phone: [employer] 12-14-2023 09:34-0500 Body weight 99.88 kg Sascha Furlong DO Work Phone: [employer] 12-14-2023 09:34-0500 Diastolic blood pressure 68 mm[Hg] Sascha Furlong DO Work Phone: [employer] 12-14-2023 09:34-0500 Heart rate 75 /min Sascha Furlong DO Work Phone: [employer] 12-14-2023 09:34-0500 Respiratory rate 20 /min Sascha Furlong DO Work Phone: [employer] 12-14-2023 09:34-0500 SaO2% (BldA) [Mass fraction] 96 % Sascha Furlong DO Work Phone: [facility] [employer] [facility] 12-14-2023 09:34-0500 Systolic blood pressure 122 mm[Hg] Sascha Furlong DO Work Phone: [facility] 09-19-2023 09:39-0400 Blood Pressure Location Zac MUNIZ [facility] 09-19-2023 09:39-0400 Diastolic blood pressure 77 mm[Hg] Zac MUNIZ [facility] 09-19-2023 09:39-0400 Heart rate 64 /min Zac MUNIZ [facility] 09-19-2023 09:39-0400 Respiratory rate 16 /min Zac MUNIZ [facility] 09-19-2023 09:39-0400 Systolic blood pressure 126 mm[Hg] Zac MUNIZ [facility] 05-18-2023 09:00-0400 Body weight 20 mg DO Sascha Furlong Work Phone: [facility] 05-09-2023 10:34-0400 Body height 172.72 cm Sascha G Furlong Work Phone: [facility] DO Work Phone: 05-09-2023 10:34-0400 Body mass index (BMI) [Ratio] 32.54 kg/m2 Sascha G Furlong Work Phone: [facility] DO Work Phone: 05-09-2023 10:34-0400 Body surface area Derived from formula 2.1 m2 Sascha G Furlong Work Phone: [facility] [employer] DO Work Phone: 05-09-2023 10:34-0400 Body weight 97.07 kg Asscha G Furlong Work Phone: [facility] [employer] 250 DO Work Phone: 05-09-2023 10:34-0400 Diastolic blood pressure 60 mm[Hg] Sascha G Furlong Work Phone: [facility] [employer] DO Work Phone: 05-09-2023 10:34-0400 Heart rate 78 /min Sascha G Furlong Work Phone: [facility] [employer] DO Work Phone: 05-09-2023 10:34-0400 Systolic blood pressure 88 mm[Hg] Sascha G Furlong Work Phone: [facility] [place] [facility] DO Work Phone: 05-07-2023 19:59-0400 Diastolic blood pressure 67 mm[Hg] DO Sascha Furlong Work Phone: [facility] 05-07-2023 19:59-0400 Heart rate 68 /min DO Sascha Furlong Work Phone: [facility] 05-07-2023 19:59-0400 Respiratory rate 18 /min DO Sascha Furlong Work Phone: [facility] 05-07-2023 19:59-0400 SaO2% (BldA) [Mass fraction] 96 % DO Sascha Furlong Work Phone: [facility] 05-07-2023 19:59-0400 Systolic blood pressure 122 mm[Hg] DO Sascha Furlong Work Phone: [facility] 05-07-2023 18:27-0400 Body height 172.72 cm DO Sascha Furlong Work Phone: [facility] 05-07-2023 18:27-0400 Body temperature 99 [degF] DO Sascha Furlong Work Phone: [facility] 05-07-2023 18:27-0400 Body weight 94.95 kg DO Sascha Furlong Work Phone: [facility] 05-03-2023 05:30-0400 Diastolic blood pressure 60 mm[Hg] DO Sascha Furlong Work Phone: [facility] 05-03-2023 05:30-0400 Heart rate 74 /min DO Sascha Furlong Work Phone: [facility] 05-03-2023 05:30-0400 Respiratory rate 18 /min DO Sascha Furlong Work Phone: [facility] 05-03-2023 05:30-0400 SaO2% (BldA) [Mass fraction] 96 % DO Sascha Furlong Work Phone: [facility] 05-03-2023 05:30-0400 Systolic blood pressure 101 mm[Hg] DO Sascha Furlong Work Phone: [facility] 05-03-2023 02:29-0400 Body height 172.72 cm DO Sascha Furlong Work Phone: [facility] 05-03-2023 02:29-0400 Body temperature 97.9 [degF] DO Sascha Furlong Work Phone: [facility] 05-03-2023 02:29-0400 Body weight 97.52 kg DO Sascha Furlong Work Phone: [facility] 04-04-2023 15:54-0400 Diastolic blood pressure 55 mm[Hg] DO Sascha Furlong Work Phone: [facility] 04-04-2023 15:54-0400 Heart rate 54 /min DO Sascha Furlong Work Phone: [facility] 04-04-2023 15:54-0400 Respiratory rate 16 /min DO Sascha Furlong Work Phone: [facility] 04-04-2023 15:54-0400 SaO2% (BldA) [Mass fraction] 95 % DO Sascha Furlong Work Phone: [facility] 04-04-2023 15:54-0400 Systolic blood pressure 98 mm[Hg] DO Sascha Furlong Work Phone: [facility] 04-04-2023 09:55-0400 Body height 172.72 cm DO Sascha Furlong Work Phone: [facility] 04-04-2023 09:55-0400 Body temperature 97.5 [degF] DO Sascha [employer] Work Phone: [facility] 04-04-2023 09:55-0400 Body weight 98.7 kg DO Sascha Furlong Work Phone: [facility] 03-30-2023 11:00-0400 Body height 172.72 cm Sascha G [employer] Work Phone: [facility] [place] 250 DO Work Phone: 03-30-2023 11:00-0400 Body mass index (BMI) [Ratio] 32.99 kg/m2 Sascha G [employer] Work Phone: [facility] [place] 250 DO Work Phone: 03-30-2023 11:00-0400 Body surface area Derived from formula 2.12 m2 Sascha G [employer] Work Phone: [facility] [place] 250 DO Work Phone: 03-30-2023 11:00-0400 Body weight 98.43 kg Sascha G Furlong Work Phone: [facility] [facility] DO Work Phone: 03-30-2023 11:00-0400 Diastolic blood pressure 70 mm[Hg] Sascha Candelaria Furlong Work Phone: [facility] [facility] DO Work Phone: 03-30-2023 11:00-0400 Diastolic blood pressure 82 mm[Hg] Sascha Candelaria Furlong Work Phone: [facility] DO Work Phone: 03-30-2023 11:00-0400 Heart rate 63 /min Sascha Candelaria Furlong Work Phone: [facility] DO Work Phone: 03-30-2023 11:00-0400 Systolic blood pressure 126 mm[Hg] Sascha Candelaria Furlong Work Phone: [facility] [employer] 250 DO Work Phone: 03-30-2023 11:00-0400 Systolic blood pressure 134 mm[Hg] Sascha Candelaria Furlong Work Phone: [facility] [employer] DO Work Phone: 03-24-2023 11:00-0400 54 1 Sascha G Furlong Work Phone: [facility] [employer] [facility] DO Work Phone: Comment on above: [id number] Encounters Encounter Date Encounter Type Care Provider Facility Start: 10-15-2024 End: 10-15-2024 Augie Taylor MD Work Phone: [facility] Start: 10-15-2024 End: 10-15-2024 Augie Taylor MD Work Phone: [facility] Start: 10-15-2024 End: 10-15-2024 Office outpatient visit 25 minutes Whit Taylor MD Work Phone: [facility] Comment on above: Intention tremor (Pr imary Dx) Start: 10-15-2024 End: 10-15-2024 ambulatory WHIT TAYLOR Not Available Start: 10-10-2024 End: 10-10-2024 Patient encounter procedure Edenilson Mcleod MD Work Phone: [facility] [address] Work Phone: Start: 10-10-2024 End: 10-10-2024 ambulatory Edenilson Mcleod MD Work Phone: [facility] Work Phone: Start: 10-09-2024 End: 10-09-2024 Office outpatient visit 15 minutes Sascha Sutton DO Work Phone: [facility] Comment on above: Subacute frontal sin usitis (Primary Dx); Hoarseness Start: 10-09-2024 End: 10-09-2024 ambulatory [facility] Start: 10-02-2024 End: 10-02-2024 Orders Only Sascha Sutton DO Work Phone: [facility] Start: 09-24-2024 End: 09-24-2024 Office outpatient visit 15 minutes Sascha Sutton DO Work Phone: [facility] Comment on above: Upper respiratory tr act infection, unspecified type (Primary Dx) Start: 09-24-2024 End: 09-24-2024 ambulatory [facility] Start: 09-19-2024 End: 09-19-2024 ambulatory Zac MUNIZ Facility:[id number] Start: 09-19-2024 End: 09-19-2024 Patient encounter procedure MD Edenilson Mcleod Work Phone: [facility] [place] Work Phone: Start: 09-06-2024 Non-patient / Non-visit MD Araya Work Phone: [facility] Work Phone: Start: 09-05-2024 Non-patient / Non-visit MD Araya Work Phone: [facility] Work Phone: Start: 09-05-2024 End: 09-05-2024 ambulatory MD Edenilson Mcleod Work Phone: [facility] Work Phone: Start: 09-05-2024 End: 09-05-2024 Patient encounter procedure MD Edenilson Mcleod Work Phone: [facility] Work Phone: Start: 09-03-2024 End: 09-03-2024 ambulatory Zac MUNIZ Facility:[facility] Start: 09-03-2024 End: 09-03-2024 Patient encounter procedure Zac MUNIZ [facility] Start: 08-29-2024 End: 08-29-2024 Refill Sascha Sutton DO Work Phone: [facility] Start: 08-29-2024 End: 08-29-2024 ambulatory MD Edenilson Mcleod Work Phone: [facility] Work Phone: Start: 08-29-2024 End: 08-29-2024 Patient encounter procedure MD Edenilson Mcleod Work Phone: [facility] Work Phone: Start: 08-20-2024 End: 08-20-2024 ambulatory MD Edenilson Mcleod Work Phone: [facility] Work Phone: Start: 08-20-2024 End: 08-20-2024 Patient encounter procedure MD Edenilson Mcleod Work Phone: [facility] Work Phone: Start: 08-17-2024 End: 08-17-2024 ambulatory KALI CONKLIN Not Available Start: 08-13-2024 End: 08-13-2024 ambulatory MD Edenilson Mcleod Work Phone: [facility] Work Phone: Start: 08-13-2024 End: 08-13-2024 Patient encounter procedure MD Edenilson Mcleod Work Phone: [facility] Work Phone: Start: 08-13-2024 Non-patient / Non-visit MD Araya Work Phone: [facility] Work Phone: Start: 07-25-2024 End: 07-25-2024 ambulatory MD Edenilson Mcleod Work Phone: [facility] Work Phone: Start: 07-25-2024 End: 07-25-2024 Patient encounter procedure MD Edenilson Mcleod Work Phone: [facility] Work Phone: Start: 07-18-2024 Non-patient / Non-visit MD Araya Work Phone: [facility] Work Phone: Start: 07-18-2024 End: 07-18-2024 Patient encounter procedure MD Edenilson Mcleod Work Phone: [facility] Work Phone: Start: 07-12-2024 End: 07-12-2024 ambulatory MD Edenilson Mcleod Work Phone: [facility] Work Phone: Start: 07-12-2024 End: 07-12-2024 Patient encounter procedure MD Edenilson Mcleod Work Phone: [facility] Work Phone: Start: 07-04-2024 Non-patient / Non-visit MD Araya Work Phone: [facility] Work Phone: Start: 07-04-2024 End: 07-04-2024 ambulatory DO Sascha Furlong Work Phone: [facility] Work Phone: Start: 07-04-2024 End: 07-04-2024 Patient encounter procedure DO Sascha Furlong Work Phone: [facility] Work Phone: Start: 07-03-2024 End: 07-03-2024 Patient encounter procedure DO Sascha Furlong Work Phone: [facility] [address] Work Phone: Start: 07-03-2024 End: 07-03-2024 ambulatory DO Sascha Furlong Work Phone: [facility] Work Phone: Start: 06-26-2024 End: 06-26-2024 ambulatory DO Sascha Furlong Work Phone: [facility] Work Phone: Start: 06-26-2024 End: 06-26-2024 Patient encounter procedure DO Sascha Furlong Work Phone: [facility] Work Phone: Start: 06-14-2024 End: 06-14-2024 ambulatory SASCHA Teagan [facility] Start: 06-13-2024 End: 06-13-2024 ambulatory CARLOS EDEN Not Available Start: 06-06-2024 End: 06-06-2024 ambulatory DO Sascha Furlong Work Phone: [facility] Work Phone: Start: 06-06-2024 End: 06-06-2024 Patient encounter procedure DO Sascha Furlong Work Phone: [facility] Work Phone: Start: 06-06-2024 Non-patient / Non-visit DO Den nis Furlong Work Phone: [facility] Work Phone: Start: 05-30-2024 End: 05-30-2024 ambulatory DO Sascha Furlong Work Phone: [facility] Work Phone: Start: 05-30-2024 End: 05-30-2024 Departed Referred DO Sascha Furlong Work Phone: [facility] [address] Work Phone: Start: 05-28-2024 End: 05-28-2024 ambulatory DO Sascha Furlong Work Phone: [facility] Work Phone: Start: 05-28-2024 End: 05-28-2024 Patient encounter procedure DO Sascha Furlong Work Phone: [facility] Pain Management Work Phone: Start: 05-16-2024 End: 05-16-2024 ambulatory DO Sascha Furlong Work Phone: [facility] Work Phone: Start: 05-16-2024 End: 05-16-2024 Patient encounter procedure DO Sascha Furlong Work Phone: [facility] Work Phone: Start: 05-16-2024 Non-patient / Non-visit DO Den nis Furlong Work Phone: [facility] Work Phone: Start: 05-15-2024 End: 05-15-2024 ambulatory LEAH Tray ROA Facility:[facility] Start: 05-15-2024 End: 05-15-2024 Patient encounter procedure LEAH ROA [facility] Start: 05-09-2024 End: 05-09-2024 ambulatory CARLOS EDEN Not Available Start: 05-02-2024 End: 05-02-2024 ambulatory DO Sascha Furlong Work Phone: [facility] Work Phone: Start: 05-02-2024 End: 05-02-2024 Patient encounter procedure DO Sascha Furlong Work Phone: [facility] Work Phone: Start: 05-01-2024 End: 05-01-2024 [facility] Start: 04-24-2024 End: 04-24-2024 ambulatory DO Sascha Furlong Work Phone: [facility] Work Phone: Start: 04-24-2024 End: 04-24-2024 Patient encounter procedure DO Sascha Furlong Work Phone: [facility] Neurosurgery Work Phone: Start: 04-18-2024 Non-patient / Non-visit DO Den nis Furlong Work Phone: [facility] Work Phone: Start: 04-18-2024 End: 04-18-2024 ambulatory DO Sascha Furlong Work Phone: [facility] Work Phone: Start: 04-18-2024 End: 04-18-2024 Patient encounter procedure DO Sascha Furlong Work Phone: [facility] Work Phone: Start: 04-11-2024 End: 04-11-2024 ambulatory DO Sascha Furlong Work Phone: [facility] Work Phone: Start: 04-11-2024 End: 04-11-2024 Patient encounter procedure DO Sascha Furlong Work Phone: [facility] Work Phone: Start: 04-09-2024 Non-patient / Non-visit DO Den nis Furlong Work Phone: [facility] Neurosurgery Work Phone: Start: 04-09-2024 End: 04-09-2024 Admission to same day surgery center DO Sascha Furlong Work Phone: [facility] [address] Start: 04-09-2024 End: 04-09-2024 ambulatory DO Sascha Furlong Work Phone: [facility] Work Phone: Start: 04-02-2024 End: 04-02-2024 Departed Referred DO Sascha Furlong Work Phone: [facility]-Pre-Surgical Testing Work Phone: Start: 04-02-2024 End: 04-02-2024 Patient encounter procedure DO Sascha Furlong Work Phone: [facility]Pre-Surgical [facility] Work Phone: Start: 04-02-2024 End: 04-02-2024 ambulatory DO Sascha Furlong Work Phone: [facility] Work Phone: Start: 03-29-2024 End: 03-29-2024 ambulatory DO Sascha Furlong Work Phone: [facility] Work Phone: Start: 03-29-2024 End: 03-29-2024 Patient encounter procedure DO Sascha Furlong Work Phone: [facility] Neurosurgery Work Phone: Start: 03-20-2024 End: 03-20-2024 ambulatory Daria X Orzech Facility:[facility] Start: 03-20-2024 End: 03-20-2024 Patient encounter procedure Daria X Orzech [facility] Start: 03-13-2024 End: 03-13-2024 Patient encounter procedure DO Sascha Furlong Work Phone: [facility] [address] Work Phone: Start: 03-13-2024 End: 03-13-2024 ambulatory DO Sascha Furlong Work Phone: [facility] Work Phone: Start: 03-08-2024 End: 03-08-2024 Patient encounter procedure DO Sascha Furlong Work Phone: [facility] [address] Work Phone: Start: 03-08-2024 End: 03-08-2024 ambulatory DO Sascha Furlong Work Phone: [facility] Work Phone: Start: 02-21-2024 End: 02-21-2024 ambulatory DO Sascha Furlong Work Phone: [facility] Work Phone: Start: 02-21-2024 End: 02-21-2024 Patient encounter procedure DO Sascha Furlong Work Phone: [facility] Neuro[facility] Work Phone: Start: 02-16-2024 End: 02-16-2024 ambulatory Zac MUNIZ Facility:[id number] Start: 02-09-2024 End: 02-09-2024 ambulatory DO Sascha Furlong Work Phone: [facility] Work Phone: Start: 02-09-2024 End: 02-09-2024 Patient encounter procedure DO Sascha Furlong Work Phone: [facility] Work Phone: Start: 01-23-2024 End: 02-20-[address] [facility] Start: 01-18-2024 End: 01-18-2024 ambulatory Zac MUNIZ Facility:[facility] Start: 01-18-2024 End: 01-18-2024 Lab Drop off Zac MUNIZ [facility] Start: 01-18-2024 End: 01-18-2024 ambulatory Zac MUNIZ Facility: [place] Start: 01-18-2024 End: 01-18-2024 Patient encounter procedure Zac Alvino MUNIZ [facility] Start: 01-11-2024 End: 01-11-2024 Patient encounter procedure DO Sascha Furlong Work Phone: [facility] [address] [place] Work Phone: Start: 01-11-2024 End: 01-11-2024 ambulatory DO Sascha Furlong Work Phone: [facility] Work Phone: Start: 01-10-2024 End: 01-10-2024 Patient encounter procedure DO Sascha Furlong Work Phone: [facility]-MRI [address] [place] Work Phone: Start: 01-10-2024 End: 01-10-2024 ambulatory DO Sascha Furlong Work Phone: [facility] Work Phone: Start: 01-02-2024 End: 01-03-2024 Emergency department patient visit DO Sascha Furlong Work Phone: [facility]-Emergency Room Work Phone: Start: 12-30-2023 Office outpatient ne w 45 minutes Мария Hernandez [facility] Neurosurgery Start: 12-30-2023 End: 12-30-2023 Patient encounter procedure DO Sascha Furlong Work Phone: [facility]-XRay [facility] Work Phone: Start: 12-30-2023 End: 12-30-2023 ambulatory DO Sascha Furlong Work Phone: [facility] Work Phone: Start: 12-28-2023 Chart abstracting Zaira pandya DPM Work Phone: [facility] Start: 12-28-2023 End: 12-28-2023 Office outpatient visit 15 minutes Zaira Cain DPM Work Phone: [facility] Comment on above: Pronation deformity of both feet (Primary Dx); Chronic pain of both knees Start: 12-28-2023 End: 12-28-2023 ambulatory ZAIRA CAIN Not Available Start: 12-22-2023 End: 01-20-2024 ambulatory [facility] Start: 12-19-2023 End: 12-22-2023 ambulatory [facility] Start: 12-15-2023 End: 12-15-2023 Patient encounter procedure DO Sascha Furlong [facility]: [facility] [address] [place] Work Phone: Start: 12-15-2023 End: 12-15-2023 ambulatory DO Sascha Marielong Work Phone: [facility] Work Phone: Start: 12-14-2023 End: 12-15-2023 ambulatory [facility] Start: 12-14-2023 End: 12-14-2023 Office outpatient visit 25 minutes Sascha Sutton DO Work Phone: [facility] - [facility] Medicine Comment on above: Essential hypertensi on (Primary Dx); Hyperlipidemia, unspecified hyperlipidemia type; Midline low back pain without sciatica, unspecified chronicity; Class 1 obesity due to excess calories with serious comorbidity and body mass index (BMI) of 33.0 to 33.9 in adult; 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[facility]); Antiphospholipid syndrome ([facility]); Cubital tunnel syndrome on right; Paresthesias Start: 12-14-2023 End: 12-14-2023 ambulatory [facility] Start: 12-08-2023 End: 12-08-2023 Patient encounter procedure DO Saschaabelardo Marielong Work Phone: [facility] [address] Work Phone: Start: 12-08-2023 End: 12-08-2023 ambulatory DO Sascha Furlong Work Phone: [facility] Work Phone: Start: 10-20-2023 End: 10-20-2023 ambulatory DO Sascha Furlong Work Phone: [facility] Work Phone: Start: 10-20-2023 End: 10-20-2023 Patient encounter procedure DO Sascha Furlong Work Phone: [facility] [address] [place] Work Phone: Start: 09-19-2023 End: 09-19-2023 ambulatory Zac MUNIZ [facility] Start: 09-19-2023 End: 09-19-2023 Patient encounter procedure [facility] Start: 09-12-2023 End: 09-12-2023 ambulatory DO Sascha Furlong Work Phone: [facility] Work Phone: Start: 09-12-2023 End: 09-12-2023 Patient encounter procedure DO Sascha Furlong Work Phone: [facility] [address] [place] Work Phone: Start: 09-05-2023 End: 09-05-2023 ambulatory DO Sascha Furlong Work Phone: [facility] Work Phone: Start: 09-05-2023 End: 09-05-2023 Patient encounter procedure DO Sascha Furlong Work Phone: [facility] [address] Work Phone: Start: 08-16-2023 End: 08-16-2023 ambulatory DO Sascha Furlong Work Phone: [facility] Work Phone: Start: 08-16-2023 End: 08-16-2023 Patient encounter procedure DO Sascha Furlong Work Phone: [facility] [address] [place] Work Phone: Start: 08-08-2023 End: 08-08-2023 Patient encounter procedure Zac MUNIZ [facility] Start: 08-04-2023 End: 08-04-2023 ambulatory DO Sascha Furlong Work Phone: [facility] Work Phone: Start: 08-04-2023 End: 08-04-2023 Patient encounter procedure DO Sascha Furlong Work Phone: [facility]XRay [facility] Work Phone: Start: 06-03-2023 End: 06-03-2023 Patient encounter procedure Zac MUNIZ [facility] Start: 05-31-2023 End: 05-31-2023 ambulatory DO Sascha Furlong Work Phone: [facility] Work Phone: Start: 05-31-2023 End: 05-31-2023 Patient encounter procedure DO Sascha Furlong Work Phone: [facility] Work Phone: Start: 05-18-2023 End: 05-18-2023 ambulatory DO Sascha Furlong Work Phone: [facility] Work Phone: Start: 05-18-2023 End: 05-18-2023 Patient encounter procedure DO Sascha Furlong Work Phone: [facility]Lab [facility] Work Phone: Start: 05-09-2023 Office outpatient vi sit 15 minutes Sascha G Furlong Work Phone: [facility] [address] DO Work Phone: Start: 05-09-2023 End: 05-09-2023 ambulatory DO Sascha Furlong Work Phone: [facility] Work Phone: Start: 05-09-2023 End: 05-09-2023 Patient encounter procedure DO Sascha Furlong Work Phone: [facility] [address] [place] Work Phone: Start: 05-07-2023 End: 05-07-2023 Emergency department patient visit DO Sascha Furlong Work Phone: [facility]-Emergency Room Work Phone: Start: 05-03-2023 End: 05-03-2023 Emergency department patient visit DO Sascha Furlong Work Phone: [facility]-Emergency Room Work Phone: Start: 04-13-2023 End: 04-13-2023 Patient encounter procedure DO Sascha Furlong Work Phone: [facility]-Respiratory Therapy Work Phone: Start: 04-08-2023 End: 04-08-2023 Patient encounter procedure DO Sascha Furlong Work Phone: [facility]-Lab [address] [place] Work Phone: Start: 04-04-[address] Alfonso greenberg [place] Facility:[id number] Start: 04-04-2023 End: 04-04-2023 Admission to same day surgery center DO Sascha Furlong Work Phone: [facility]-[employer]inter [employer] Work Phone: Start: 04-04-2023 End: 04-04-2023 ambulatory DO Sascha Furlong Work Phone: [facility] Work Phone: Start: 03-31-2023 End: 03-31-2023 ambulatory DO Sascha Furlong Work Phone: [facility] Work Phone: Start: 03-31-2023 End: 03-31-2023 Patient encounter procedure DO Sascha Furlong Work Phone: [facility]-Pre-Surgical Testing Work Phone: Start: 03-30-2023 Office consultation new/estab patient 80 min Sascha G Furlong Work Phone: [facility] [facility] DO Work Phone: Start: 03-30-[address] Alfonso Trujillo Facility: Start: 03-29-[address] Alfonso Trujillo [facility] ility:[facility] Start: 03-20-2023 End: 03-22-2023 ambulatory SHAIKH Claritza MULTANI Facility: Start: 01-31-2023 End: 01-31-2023 ambulatory DO Sascha Furlong Work Phone: [facility] Work Phone: Start: 01-31-2023 End: 01-31-2023 Patient encounter procedure DO Sascha Furlong Work Phone: [facility] [address] Work Phone: Start: 10-26-2022 End: 10-26-2022 ambulatory DO Sascha Furlong Work Phone: [facility] Work Phone: Start: 10-26-2022 End: 10-26-2022 Patient encounter procedure DO Sascha Furlong Work Phone: [facility] [address] Start: 09-29-2022 End: 09-29-2022 ambulatory DO Sascha Furlong Work Phone: [facility] Work Phone: Start: 09-29-2022 End: 09-29-2022 Patient encounter procedure DO Sascha Furlong Work Phone: [facility]XRay [facility] Start: 07-21-2022 End: 07-21-2022 Patient encounter procedure DO Sascha Furlong Work Phone: [facility] [address] Start: 04-14-2022 End: 04-14-2022 Patient encounter procedure DO Sascha Furlong Work Phone: [facility] [address] Start: 04-09-2022 End: 04-09-[address] AUDIE GONZALES . Facility: Start: 04-25-2018 End: 04-25-2018 Emergency department patient visit REBEKAH REED [facility] Imaging result normal Sascha G F urlong Work Phone: [facility] [facility] DO Work Phone: Procedures Date Procedure Procedure Detail Performing Clinician Start: 09-24-2024 Adult depression screening assessment Sascha Furlong DO Work Phone: Start: 09-19-2024 Plain chest X-ray MD Edenilson Mcleod Work Phone: Start: 08-29-2024 Plain X-ray of right hip [...] Start: 12-14-2023 Adult depression screening assessment Sascha Sutton DO Work Phone: Start: 09-12-2023 Plain X-ray of right hip DO Sascha Kwan ng Work Phone: Start: 08-04-2023 Diagnostic radiography of abdomen DO Den abelardo Sutton Work Phone: Start: 05-09-2023 Diagnostic radiography of abdomen DO Den abelardo Kwanng Work Phone: Start: 05-03-2023 CT of abdomen and pelvis without contrast DO Sascha Kwanng Work Phone: Start: 04-04-2023 [facility] Angio DO Sascha Sutton Work Phone: Start: 09-29-2022 X-ray of left foot DO Sascha Kwanng Work Phone: Start: 06-15-2017 Colonoscopy Sascha Sutton DO Work Phone: Start: 11-21-2016 Total colonoscopy Sascha Sutton Work Phone: Arthroplasty of knee Sascha Sutton Work Phone: Arthroplasty of knee Zac MUNIZ Arthroscopy of knee Zac MUNIZ Cleft palate (disorder) Patr ick MUNIZ Colonoscopy Zac MUNIZ Decompression of median nerve Saschaabelardo Sutton Work Phone: Decompression of median nerve Zac MUNIZ Dilation of esophagus Sascha Sutton Work Phone: Esophagogastroduodenoscopy P atrick MUNIZ Hernia repair Sascha keen Work Phone: Malignant neoplasm o f skin (disorder) Zac MUNIZ Operation on the ear Saschaabelardo Sutton Work Phone: Operative procedure on knee Sascha Sutton Work Phone: Operative procedure on spinal structure Sascha Sutton Work Phone: Procedure on shoulder Ronni MUNIZ Procedure on spine Zac VENTURA Radio-frequency abla tion system (physical object) aZc MUNIZ Repair of cleft palate Garth Sutton Work [...] Td Vaccines (3 - Td or Tdap) [facility] Start: 06-15-2027 Screening for malign ant neoplasm of colon Colonoscopy [facility] Start: 10-09-2025 Adult BMI Screening Adult BMI Screen ing [facility] Start: 10-09-2025 Tobacco Screening Tobacco Screening [facility] Start: 09-24-2025 Adult BMI Screening Adult BMI Screen ing [facility] Start: 09-24-2025 Depression Screening Depression Scre ening [facility] Start: 09-24-2025 Tobacco Screening Tobacco Screening [facility] Start: 06-14-2025 Adult BMI Screening Adult BMI Screen ing [facility] Start: 06-14-2025 Depression Screening Depression Scre ening [facility] Start: 06-14-2025 Tobacco Screening Tobacco Screening [facility] Start: 05-07-2025 End: 05-07-2025 Patient encounter procedure 05/07/2025 9:40 AM EDT Office Visit [facility] [address] [place] [address] [facility] Start: 05-01-2025 Fall Risk Screening Fall Risk Screen ing [facility] Start: 05-01-2025 Medicare Annual Well ness Visit Medicare Annual Wellness Visit [facility] Start: 12-19-2024 End: 12-19-2024 Patient encounter procedure 12/19/2024 11:40 AM EST Office Visit [facility] [address] [place] [id number] Whit Taylor MD [address] [facility] [address] [place] [id number] [facility] Start: 12-17-2024 End: 12-17-2024 Patient encounter procedure 12/17/2024 10:00 AM EST Office Visit [facility] Medicine [address] [place] [address] Sascha Sutton, [address], [facility] [place] [address] [facility] Start: 12-14-2024 Adult BMI Screening Adult BMI Screen ing [facility] Start: 12-14-2024 Depression Screening Depression Scre ening [facility] Start: 12-14-2024 Fall Risk Screening Fall Risk Screen ing [facility] Start: 12-14-2024 Tobacco Screening Tobacco Screening [facility] Start: 12-12-2024 End: 12-12-2024 Patient encounter procedure 12/12/2024 2:15 PM EST Office Visit [facility] [place] [address] [place] [phone] Carlos Eden W, DO [address] [place] [address] [facility] [place] Start: 11-01-2024 End: 11-01-2024 Patient encounter procedure 11/01/2024 1:00 PM EST Procedure Visit [facility] [address] [facility] [address] [place] [address] Kali Conklin, DPM [address] [facility] [address] [place] [address] [facility] Start: 10-15-2024 End: 10-15-2024 Patient encounter procedure 10/15/2024 9:30 AM EST Office Visit [facility] [address] [facility] [address] [place] [address] Whit Taylor MD [address] [address] Arrived [facility] Comment on above: Arrived Start: 10-10-2024 Hemolytic complement CH50 level [facility] Start: 10-08-2024 Influenza vaccination Influenza Vacc ine [facility] Comment on above: Postponed from 07/22 (Patient Ill Today) Start: 08-29-2024 Plain X-ray of right hip XR hi p RT min 2V(w/wo pelvis)* [facility] Start: 08-29-2024 XR Hip - right 2 Views [facility] Start: 08-20-2024 Patient referral [facility] Work Phone: Start: 07-22-2024 Influenza vaccination P [facility] Start: 07-03-2024 Hemolytic complement CH50 level [facility] Start: 06-14-2024 End: 06-14-2024 Patient encounter procedure 06/14/2024 1:30 PM EDT Office Visit [facility] [address] [place] [address] Sascha Sutton, DO [address], [facility] [place] [address] [facility] Start: 05-01-2024 End: 05-01-2024 Patient encounter procedure 05/01/2024 10:20 AM EDT Office Visit [facility] [address] [place] [address] [facility] Start: 04-14-2024 Medicare Annual Well ness Visit Medicare Annual Wellness Visit [facility] Start: 04-09-2024 Hospital admission [facility] Start: 04-09-2024 End: 04-09-2024 [facility] Start: 03-13-2024 Hemolytic complement CH50 level [facility] Start: 01-25-2024 End: 01-25-2024 Patient encounter procedure 01/25/2024 11:15 AM EST Office Visit [facility] [address] [place] [id number] Zaira Cain DPM [address] [place] [address] [facility] Start: 01-10-2024 MRI of lumbar spine with contrast MR lumbar spine wo/w [facility] Start: 01-03-2024 CT Abdomen and Pelvi s WO contrast [facility] Start: 01-03-2024 CT of abdomen and pe lvis without contrast CT abdomen pelvis wo [facility] Start: 12-28-2023 End: 12-28-2023 Patient encounter procedure 12/28/2023 2:00 PM EST Office Visit [facility] [address] [place] [id number] Zaira Cain DPM [address] [place] [address] [facility] Start: 12-14-2023 End: 12-14-2024 XR Lumbar spine 2 or 3 Views X-ray spine lumbar 2 or 3 views Imaging Routine Midline low back pain without sciatica, unspecified chronicity Expected: 12/14/2023, Expires: 12/14/2024 [facility] Work Phone: Comment on above: Expected: 12/14/2023 , Expires: 12/14/2024 Start: 12-08-2023 Hemolytic complement CH50 level [facility] Start: 10-18-2023 COVID-19 Vaccine () COVID-19 Vaccine () [facility] Start: 09-20-2023 COVID-19 Vaccine (3 - Pfizer risk series) COVID-19 Vaccine (3 - Pfizer risk series) [facility] Start: 09-05-2023 Hemolytic complement CH50 level [facility] Start: 08-16-2023 [facility] Start: 05-31-2023 Hemolytic complement CH50 level [facility] Start: 05-18-2023 [facility] Start: 05-12-2023 FUV, Provider: Alfonso Trujillo, Status: Pen, Time: 10:00 AM FUV, Provider: Alfonso Trujillo, Status: Pen, Time: 10:00 AM [facility] [address] DO Work Phone: Start: 05-09-2023 FUV, Provider: Germaine Brown, Status: Pen, Time: 10:30 AM FUV, Provider: Germaine Brown, Status: Pen, Time: 10:30 AM [facility] 250 DO Work Phone: Start: 04-04-2023 [facility] Start: 04-04-2023 SURGNONUH, Provider: Alfonso Trujillo, Status: Pen, Time: 11:00 AM SURGNONUH, Provider: Alfonso Trujillo, Status: Pen, Time: 11:00 AM [facility] [address] DO Work Phone: Start: 01-31-2023 Hemolytic complement CH50 level [facility] Start: 10-26-2022 Hemolytic complement CH50 level [facility] Start: 2022 Abdominal aortic ane urysm screening Abdominal Aortic Aneurysm (AAA) Screen [facility] Start: 2002 Screening for malign ant neoplasm of colon Colonoscopy [facility] Start: 1975 Adult BMI Follow Up Plan Adult BMI Follow Up Plan [facility] Start: 1957 Screening for malign ant neoplasm of colon [facility] Bilirubin measurement [facility] Body weight [facility] Calcium [Mass/time] in 24 hour Urine [facility] Calcium [Mass/volume ] in 24 hour Urine [facility] Calcium carbonate/To eligio in Stone [facility] Calcium hydrogen phosphate dihydrate/Total in Stone [facility] Calcium oxalate monohydrate/Total in [facility] Calcium phosphate level [facility] Calculus analysis wi th calculus photography [Interpretation] in [facility] Calculus analysis, qualitative [facility] Calculus analysis, quantitative [facility] Calculus analysis, quantitative, infrared spectroscopy [facility] Cellular material [Mass/mass] of Stone by Estimated [facility] Cholesterol [Mass/vo lume] in Serum or Plasma [facility] Complement C3 [Mass/volume] in Serum or Plasma [facility] Work Phone: Complement C3 [Mass/volume] in Serum or Plasma [facility] Complement C3 [Mass/volume] in Serum or Plasma [facility] Complement C3 [Mass/volume] in Serum or Plasma [facility] Complement C3 [Mass/volume] in Serum or Plasma [facility] Complement C3 [Mass/volume] in Serum or Plasma [facility] Complement C3 [Mass/volume] in Serum or Plasma [facility] Complement C4 [Mass/volume] in Serum or Plasma [facility] Work Phone: Complement C4 [Mass/volume] in Serum or Plasma [facility] Complement C4 [Mass/volume] in Serum or Plasma [facility] Complement C4 [Mass/volume] in Serum or Plasma [facility] Complement C4 [Mass/volume] in Serum or Plasma [facility] Complement C4 [Mass/volume] in Serum or Plasma [facility] Complement C4 [Mass/volume] in Serum or Plasma [facility] Cystine measurement [facility] Determination of willow culus chemical composition [facility] Evaluation procedure [facility] Hemolytic complement CH50 level [facility] Work Phone: Hydroxyapatite [Ener gy Difference] in 24 hour Urine [facility] Laboratory data interpretation [facility] Magnesium [Mass/time ] in 24 hour Urine [facility] Magnesium [Mass/volu me] in Urine [facility] MR Cervical spine WO contrast [facility] Newberyite/Total in Stone [facility] Oxalate [Mass/time] in 24 hour Urine [facility] Patient Education [facility] Work Phone: Patient referral [facility] Work Phone: Phosphate [Mass/time ] in 24 hour Urine [facility] Phosphate [Mass/volu me] in Urine [facility] [facility] Specimen source subj ect [Type] [facility] Triamterene measurement [facility] Triple phosphate/Tot al in Stone [facility] Urate [Mass/time] in 24 hour Urine [facility] Urate [Mass/volume] in Urine [facility] Immunizations Immunization Date Immunization Notes Care Provider Fa [facility] 03-06-2024 COVID-19 (MODERNA) 12Y and older DO Sascha Furlong Work Phone: [facility] 08-23-2023 Covid-19, Mrna, Lnp- s, Pf,erasmo-sucrose,30 Mcg/0.3ml Fall23 Sascha Furlong DO Work Phone: [employer] 08-23-2023 influenza virus vacc ine, unspecified formulation Zac MUNIZ [facility] 08-23-2023 Influenza, High-dose , Quadrivalent Sascha Furlong DO Work Phone: [facility] [employer] [facility] 08-23-2023 RSV, bivalent, prote in subunit RSVpreF, diluent reconstituted, 0.5 mL, PF Sascha Sutton DO Work Phone: [facility] 05-20-2023 tetanus toxoid, redu coni diphtheria toxoid, and acellular pertussis vaccine, adsorbed Zacgreyson MUNIZ [facility] 12-05-2022 influenza virus vacc ine, unspecified formulation Zac MUNIZ [facility] 12-05-2022 influenza, seasonal, injectable Sascha Sutton Work Phone: [facility] 250 DO Work Phone: 10-08-2022 Pfizer COVID-19 Vac Bivalent 30 MCG/0.3ML Intramuscular Suspension Sascha Sutton Work Phone: [facility] 10-08-2022 SARS-COV-2 (COVID-19 ) Vaccine, Unspecified Sascha Sutton DO Work Phone: [facility] 09-07-2022 Fluzone High-Dose Quadrivalent 0.7 ML Intramuscular Suspension Prefilled Syringe Sascha Sutton Work Phone: [facility] 250 DO Work Phone: 09-07-2022 influenza virus vacc ine, unspecified formulation Zac MUNIZ [facility] 04-16-2022 Prevnar 20 0.5 ML Intramuscular Suspension Prefilled Syringe Sascha Sutton Work Phone: [facility] 09-23-2021 Lizeth COVID-19 Vac cine 0.5 ML Intramuscular Suspension Sascha Sutton Work Phone: [facility] 07-28-2021 influenza virus vacc ine, unspecified formulation Zac MUNIZ [facility] 07-28-2021 influenza, injectabl e, quadrivalent, preservative free Sascha G Furlong Work Phone: [facility] [employer] DO Work Phone: 01-26-2021 Lizeth COVID-19 Vac cine 0.5 ML Intramuscular Suspension Sascha G Furlong Work Phone: [facility] 08-22-2020 influenza virus vacc ine, unspecified formulation [employer] [facility] 08-22-2020 Influenza, injectabl e, Madin Folsom Canine Kidney, preservative free, quadrivalent Sascha G Furlong [facility] Phone[facility] Work Phone: 08-26-2019 zoster vaccine recombinant Sascha G Furlong Work Phone: [facility] 08-20-2019 influenza virus vacc ine, unspecified formulation [employer] [facility] 08-20-2019 Influenza, injectabl e, Madin Hilda Canine Kidney, quadrivalent with preservative Sascha G Furlong Work Phone: [facility] [employer] DO Work Phone: 06-27-2019 zoster vaccine recombinant Sascha G Furlong Work Phone: [facility] 09-05-2018 influenza virus vacc ine, unspecified formulation [employer] [facility] 09-05-2018 Influenza, injectabl e, Madin Folsom Canine Kidney, preservative free, quadrivalent Sascha G Furlong Work Phone: [facility] 250 DO Work Phone: 07-28-2017 Influenza, injectabl e, Madin Hilda Canine Kidney, preservative free, quadrivalent Sascha Furlong DO Work Phone: [facility] [employer] [facility] 09-16-2016 pneumococcal conjuga te vaccine, 13 valent Sascha G Furlong Work Phone: [facility] 09-09-2016 influenza virus vacc ine, unspecified formulation Zac MUNIZ [facility] 09-09-2016 influenza, injectabl e, quadrivalent, contains preservative Sascha G Furlong Work Phone: [facility] 250 DO Work Phone: 12-05-2012 pneumococcal polysaccharide vaccine, 23 valent Sascha G Furlong Work Phone: [facility] 12-05-2012 tetanus toxoid, redu coni diphtheria toxoid, and acellular pertussis vaccine, adsorbed Sascha G Furlong Work Phone: [facility] 11-20-1990 hepatitis B vaccine, pediatric or pediatric/adolescent dosage Sascha G Furlong Work Phone: [facility] 10-04-1990 hepatitis B vaccine, pediatric or pediatric/adolescent dosage Sascha G Furlong Work Phone: [facility] Payers Date Payer Category Payer Self-pay [id number] 2023 Unknown 2022 Managed Care Other (unspecified) [facility] [id number] 2022 Medicare [id number] .[id number] 2022 Private Health Insurance [id number] .[id number] .[id number] 2022 Medicare [id number] 1959 Medicare [id number] 1959 Unknown [id number] 1957 Unknown [id number] 2.840.1.335538.3.579.2 .593 1957 Unknown [id number] .840.1.885114.3.579.2 .593 1957 Unknown [id number] 2.840.1.310098.3.579.2 .356 1957 Unknown [id number] 2.16840.1.108476.3.579.2 .356 1957 Unknown [id number] 2.16840.1.723138.3.579.2 .356 1957 Unknown [id number] 2.16840.1.357763.3.579.2 .1286 1957 Unknown [id number] 2.16.840.1.173930.3.579.2 .1286 1957 Unknown [id number] 2.16840.1.066432.3.579.2 .1285 1957 Unknown [id number] 2.16.840.1.678973.3.579.2 .1285 1957 Unknown [id number] 2.16.840.1.103385.3.579.2 .1957 Unknown [id number] 2.16.840.1.206923.3.579.2 .1957 Unknown [id number] 2.16.840.1.603554.3.579.2 .1957 Unknown [id number] 2.16.840.1.820891.3.579.2 .1957 Unknown [id number] 2.16.840.1.419531.3.579.2 .1957 Unknown [id number] 2.16.840.1.846333.3.579.2 .1957 Unknown [id number] 2.16.840.1.991030.3.579.2 .1957 Unknown [id number] 2.16.840.1.492784.3.579.2 .1285 1957 Unknown [id number] 2.16.840.1.354767.3.579.2 .1285 1957 Unknown [id number] 2.16.840.1.212904.3.579.2 .1285 1957 Unknown [id number] 2.16.840.1.509824.3.579.2 .1285 1957 Unknown [id number] 2.16.840.1.586452.3.579.2 .1285 1957 Unknown [id number] 2.16.840.1.107257.3.579.2 .1258 1957 Unknown [id number] 2.16.840.1.927033.3.579.2 .1258 1957 Unknown [id number] 2.840.1.776364.3.579.2 .1258 1957 Unknown [id number] 2.840.1.072600.3.579.2 .1258 1957 Unknown [id number] 2.840.1.216162.3.579.2 .1258 1957 Unknown [id number] 2.840.1.159422.3.579.2 .1259 Unknown [id number] Unknown Tina OLAYINKA [id number] Unknown [facility] [id number] Unknown [id number] 2.840.1.467286.3.579.2 .531 Unknown [id number] 2.840.1.272710.3.579.2 .531 Unknown [id number] 2.840.1.681487.3.579.2 .531 Unknown [id number] 2.840.1.112851.3.579.2 .531 Unknown [id number] 2.840.1.505393.3.579.2 .531 Unknown [id number] 2.840.1.429763.3.579.2 .531 Unknown [id number] 2.840.1.520478.3.579.2 .531 Unknown [id number] 2.840.1.480008.3.579.2 .531 Unknown [id number] 2.840.1.958349.3.579.2 .531 Unknown [id number] 2.16840.1.110796.3.579.2 .531 Unknown [id number] 2.16840.1.141473.3.579.2 .531 Unknown [id number] 2.840.1.927393.3.579.2 .531 Unknown [id number] 2.16.840.1.342068.3.579.2 .531 Unknown [id number] 2.16.840.1.111186.3.579.2 .531 Unknown [id number] 2.16.840.1.051542.3.579.2 .531 Social History Date Type Detail Facility Start: 10-17-2019 End: 05-09-2024 Tobacco smoking status NHIS Ex-smoker (finding) [facility] Start: 1955 Sex Assigned At Male F [facility] Start: 04-14-2023 End: 08-17-2024 No alcohol use No alcohol use [facility] Comment on above: pop occasioanl; quit in the s; Start: 04-14-2023 End: 08-17-2024 Sex Assigned At Male [facility] Tobacco smoking status Never [facility] History of tobacco use Current smoker [facility] History of tobacco use Cigarette Smoker P [facility] History of tobacco use Passive smoker [facility] Start: 09-29-2022 End: 05-09-2024 Tobacco use and exposure Smokeless tobacco non-user [facility] Start: 12-14-2023 End: 10-09-2024 Alcohol intake Ex-drinker (finding) [facility] Do you belong to any clubs or organizations such as muslim groups, unions, fraternal or athletic groups, or school groups? Yes [facility] Are you now , , , , never or living with a partner? [facility] How often to you hav e a drink containing alcohol? Never [facility] Do you feel stress - tense, restless, nervous, or anxious, or unable to sleep at night because your mind is troubled all the time - these days [OSQ] Not at all [facility] Start: 1955 Sex Assigned At Not on file [facility] Start: 12-26-2023 [facility] Start: 12-26-2023 End: 08-17-2024 Alcohol intake Lifetime non-drinker (finding) [facility] Start: 12-26-2023 Alcohol Comment none caffeine CAROLINE lau [employer], [place], or water company threatened to shut off services in your home in past 12Mo No [facility] Start: 06-26-2015 End: 10-11-2024 Sex Male (finding) [facility] Medical Equipment Procedure Code Equipment Code Equipment Origin al Text Equipment Identifier Dates CAGE [id number] 6DE G CAPSTONE FDA Start: 07-24-2019 SCREW [...] 6X45MM POLY AESCULAP FDA Start: 07-24-2019 CAGE [id number] 6DE G [employer] FDA Start: 07-24-2019 SCREW [...] 6X45MM POLY AESCULAP FDA Start: 07-24-2019 CAGE [id number] 6DE G [employer]STONE FDA Start: 07-24-2019 SCREW [...] 6X45MM POLY AESCULAP FDA Start: 07-24-2019 CAGE [id number] 6DE G [employer]STONE FDA Start: 07-24-2019 SCREW [...] 6X45MM POLY AESCULAP FDA Start: 07-24-2019 CAGE [id number] 6DE G [employer]ONE FDA Start: 07-24-2019 SCREW [...] 6X45MM POLY AESCULAP FDA Start: 07-24-2019 CAGE [id number] 6DE G [employer] FDA Start: 07-24-2019 SCREW [...] 6X45MM POLY AESCULAP FDA Start: 07-24-2019 CAGE [id number] 6DE G [employer]ONE FDA Start: 07-24-2019 SCREW [...] 6X45MM POLY AESCULAP FDA Start: 07-24-2019 CAGE [id number] 6DE G [employer]ONE FDA Start: 07-24-2019 SCREW [...] 6X45MM POLY AESCULAP FDA Start: 07-24-2019 CAGE [id number] 6DE G [employer]ONE FDA Start: 07-24-2019 SCREW [...] 6X45MM POLY AESCULAP FDA Start: 07-24-2019 CAGE [id number] 6DE G [employer]ONE FDA Start: 07-24-2019 SCREW [...] 6X45MM POLY AESCULAP FDA Start: 07-24-2019 CAGE [id number] 6DE G [employer] FDA Start: 07-24-2019 SCREW [...] 6X45MM POLY AESCULAP FDA Start: 07-24-2019 CAGE [id number] 6DE G [employer] FDA Start: 07-24-2019 SCREW [...] 6X45MM POLY AESCULAP FDA Start: 07-24-2019 CAGE [id number] 6DE G [employer] FDA Start: 07-24-2019 SCREW [...] 6X45MM POLY AESCULAP FDA Start: 07-24-2019 CAGE [id number] 6DE G [employer] FDA Start: 07-24-2019 SCREW [...] 6X45MM POLY AESCULAP FDA Start: 07-24-2019 CAGE [id number] 6DE G [employer]ONE FDA Start: 07-24-2019 SCREW [...] Ultra-Fine 1 mL 31 gauge x 5/16 [id number] CAGE [id number] 6DE G [employer] FDA Start: 07-24-2019 SCREW [...] 6X45MM POLY AESCULAP FDA Start: 07-24-2019 CAGE [id number] 6DE G [employer]ONE FDA Start: 07-24-2019 SCREW [...] 6X45MM POLY AESCULAP FDA Start: 07-24-2019 CAGE [id number] 6DE G [employer] FDA Start: 07-24-2019 SCREW [...] 6X45MM POLY AESCULAP FDA Start: 07-24-2019 CAGE [id number] 6DE G [employer]ONE FDA Start: 07-24-2019 SCREW [...] 6X45MM POLY AESCULAP FDA Start: 07-24-2019 CAGE [id number] 6DE G [employer]ONE FDA Start: 07-24-2019 SCREW [...] 6X45MM POLY AESCULAP FDA Start: 07-24-2019 CAGE [id number] 6DE G [employer]ONE FDA Start: 07-24-2019 SCREW [...] 6X45MM POLY AESCULAP FDA Start: 07-24-2019 CAGE [id number] 6DE G [employer]ONE FDA Start: 07-24-2019 SCREW [...] 6X45MM POLY AESCULAP FDA Start: 07-24-2019 CAGE [id number] 6DE G [employer]ONE FDA Start: 07-24-2019 SCREW [...] 6X45MM POLY AESCULAP FDA Start: 07-24-2019 CAGE [id number] 6DE G [employer]ONE FDA Start: 07-24-2019 SCREW [...] 6X45MM POLY AESCULAP FDA Start: 07-24-2019 CAGE [id number] 6DE G [employer]ONE FDA Start: 07-24-2019 SCREW [...] 6X45MM POLY AESCULAP FDA Start: 07-24-2019 CAGE [id number] 6DE G [employer]ONE FDA Start: 07-24-2019 SCREW [...] 6X45MM POLY AESCULAP FDA Start: 07-24-2019 CAGE [id number] 6DE G [employer]ONE FDA Start: 07-24-2019 SCREW [...] 6X45MM POLY AESCULAP FDA Start: 07-24-2019 CAGE [id number] 6DE G [employer]ONE FDA Start: 07-24-2019 SCREW [...] 6X45MM POLY AESCULAP FDA Start: 07-24-2019 CAGE [id number] 6DE G [employer]ONE FDA Start: 07-24-2019 SCREW [...] 6X45MM POLY AESCULAP FDA Start: 07-24-2019 CAGE [id number] 6DE G [employer]ONE FDA Start: 07-24-2019 SCREW [...] 6X45MM POLY AESCULAP FDA Start: 07-24-2019 CAGE [id number] 6DE G [employer]ONE FDA Start: 07-24-2019 SCREW [...] 6X45MM POLY AESCULAP FDA Start: 07-24-2019 CAGE [id number] 6DE G [employer]ONE FDA Start: 07-24-2019 SCREW [...] 6X45MM POLY AESCULAP FDA Start: 07-24-2019 CAGE [id number] 6DE G [employer]ONE FDA Start: 07-24-2019 SCREW [...] 6X45MM POLY AESCULAP FDA Start: 07-24-2019 CAGE [id number] 6DE G [employer]ONE FDA Start: 07-24-2019 SCREW [...] 6X45MM POLY AESCULAP FDA Start: 07-24-2019 CAGE [id number] 6DE G [employer]ONE FDA Start: 07-24-2019 SCREW [...] 6X45MM POLY AESCULAP FDA Start: 07-24-2019 CAGE [id number] 6DE G [employer]ONE FDA Start: 07-24-2019 SCREW [...] 6X45MM POLY AESCULAP FDA Start: 07-24-2019 CAGE [id number] 6DE G [employer]ONE FDA Start: 07-24-2019 SCREW [...] 6X45MM POLY AESCULAP FDA Start: 07-24-2019 CAGE [id number] 6DE G [employer]ONE FDA Start: 07-24-2019 SCREW [...] 6X45MM POLY AESCULAP FDA Start: 07-24-2019 CAGE [id number] 6DE G [employer] FDA Start: 07-24-2019 SCREW [...] 6X45MM POLY AESCULAP FDA Start: 07-24-2019 CAGE [id number] 6DE G [employer]ONE FDA Start: 07-24-2019 SCREW [...] 6X45MM POLY AESCULAP FDA Start: 07-24-2019 CAGE [id number] 6DE G [employer]ONE FDA Start: 07-24-2019 SCREW [...] 6X45MM POLY AESCULAP FDA Start: 07-24-2019 CAGE [id number] 6DE G [employer]ONE FDA Start: 07-24-2019 SCREW [...] 6X45MM POLY AESCULAP FDA Start: 07-24-2019 CAGE [id number] 6DE G [employer]ONE FDA Start: 07-24-2019 SCREW [...] 6X45MM POLY AESCULAP FDA Start: 07-24-2019 CAGE [id number] 6DE G [employer]ONE FDA Start: 07-24-2019 SCREW [...] 6X45MM POLY AESCULAP FDA Start: 07-24-2019 CAGE [id number] 6DE G [employer]ONE FDA Start: 07-24-2019 SCREW [...] 6X45MM POLY AESCULAP FDA Start: 07-24-2019 CAGE [id number] 6DE G [employer]ONE FDA Start: 07-24-2019 SCREW [...] 6X45MM POLY AESCULAP FDA Start: 07-24-2019 CAGE [id number] 6DE G [employer]ONE FDA Start: 07-24-2019 SCREW [...] 6X45MM POLY AESCULAP FDA Start: 07-24-2019 CAGE [id number] 6DE G [employer]ONE FDA Start: 07-24-2019 SCREW [...] 09-03-2024 Functional Status N/A [facility] 05-15-2024 Functional Status N/A [facility] 03-20-2024 Functional Status N/A [facility] 01-18-2024 Functional Status N/A [facility] 09-19-2023 Functional Status N/A [facility] Clinical Notes 04-09-2022 to 10-15-2024 Whit Taylor MD - 10/15/2024 9:30 AM Johnnie Sutton, DO - 10/09/2024 2:00 PM Johnnie Sutton, DO - 09/24/2024 1:30 PM EST Note Date & Type Note Facility 10-15-2024 History of Present illness Narrative Images from the original note were not included. CHIEF COMPLAINT REASON FOR VISIT: Tremors HPI: Valentin Torre is a 69 y.o. male who presents for A new patient consultation referred by Dr. Davis for tremors in both upper extremities. States can be intermittent to severe. He states he is not sure when it started. Spouse states she has noticed them more within the last 2 months to where she can see them. She states they are getting more noticeable. He states they cannot pinpoint what starts it. States it can happen at any time. States his hand writing is worse. He states he notices the same amount of shakiness in both hands. Follows with Dr. Khalil/Harsha for pain management for nerve and back issues. Lumbar MRI-severe stenosis L3-L4 ; Disc bulging. S/P Lumbar fusion-Dr. Phillips July 2019. S/P ulnar nerve release April 2024. Labs 07/03/2024. Takes tramadol 50 mg for management of pain. States he does have Lupus & Rheumatoid Arthritis. 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 Denies any other concerns. CURRENT MEDICATIONS: ALLERGIES/DISCONTINUE MEDICATIONS Current Outpatient Medications Medication Instructions acetaminophen (Tylenol) 500 MG tablet Oral benzonatate (Tessalon) 200 MG capsule Three times daily as needed for cough budesonide (Rhinocort AQ) 32 MCG/ACT nasal spray 62,500 sprays colchicine 0.6 MG tablet folic acid (Folvite) 1 MG tablet folic acid 1 mg tablet hydroxychloroquine (Plaquenil) 200 MG tablet hydroxychloroquine 200 mg tablet TAKE 1 TABLET BY MOUTH TWICE A DAY leflunomide (Arava) 10 MG tablet leucovorin (Wellcovorin) 5 MG tablet Oral, Take with a full glass of water. lisinopril-hydroCHLOROthiazide 20-12.5 MG tablet 1 tablet, Every morning meloxicam (Mobic) 15 MG tablet methotrexate (XATMEP) 2.5 mg, Oral Methotrexate Sodium (methotrexate PF) 50 MG/2ML syringe methylPREDNISolone (MEDROL) 4 mg, Oral, Daily, As needed only montelukast (Singulair) 10 MG tablet Oral nabumetone (RELAFEN) 750 mg, Oral omeprazole (PriLOSEC) [address] capsule potassium bicarbonate (K-Lyte) 25 MEQ effervescent tablet Oral prednisoLONE acetate (Pred-Forte) 1 % ophthalmic suspension predniSONE (Deltasone) 20 MG tablet pseudoephedrine-guaiFENesin ER (Mucinex D) 60-600 MG 12 hr tablet 1 tablet, Oral, Every 12 hours simvastatin (ZOCOR) 20 mg, Oral, Nightly tamsulosin (FLOMAX) 0.4 mg, Oral, Daily traMADol (Ultram) 50 MG tablet Oral Allergies Allergen Reactions Aspirin Buf(Wbzcwl-Khzsfa-Fhb) Other Reaction(s): Other (See Comments), Unknown Abdominal pain Calcium Carbonate GI intolerance Cephalexin Other Reaction(s): Unknown, Unknown, Unknown Reaction Cephalosporins Unknown Magnesium GI intolerance Oxycodone Hallucinations Other Reaction(s): Hallucinating, Mental Status Change, Unknown Sulfa Antibiotics Rash Other Reaction(s): Other (See Comments), Unknown There are no discontinued medications. PAST MEDICAL HISTORY: SURGICAL/SOCIAL/FAMILY HISTORY DEPRESSION SCREEN: Past Medical History: Diagnosis Date Arthritis shoulder and knee prob Bleeding take ASA Cleft palate 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CMS/HCC) Elevated partial thromboplastin time (PTT) Eye cancer, left (CMS/HCC) Fracture fracture toes & fingers Fracture, ribs Hearing loss History of VDRL false positive Hyperlipidemia (CMS/HCC) Hypertension (CMS/HCC) Inverted T wave when not active Iritis Kidney stones Lupus (CMS/HCC) Osteoporosis (CMS/HCC) Perforated eardrum RA (retrograde amnesia) Seasonal allergies Past Surgical History: Procedure Laterality Date CARPAL TUNNEL RELEASE both wrists COLONOSCOPY EGD EYE SURGERY Left 2014 removed linda left(cancer) HIATAL HERNIA REPAIR 04/26/2017 KNEE SURGERY Right knee scope 3x PARTIAL KNEE ARTHROPLASTY Left 2011 left knee replacemnt SHOULDER SURGERY Right TYMPANOPLASTY Right 10/17/2019 Social History Tobacco Use Smoking status: Former Types: Cigarettes Smokeless tobacco: Never Substance Use Topics Alcohol use: Never Comment: none caffeine Family History Problem Relation Name Age of Onset Hypertension Mother Heart disease Mother Heart disease Father Hypertension Father Depression: Not at risk (09/24/2024) Received from [facility] PHQ-2 Total Score: 0 REVIEW OF SYMPTOMS: Review of Systems Constitutional: Negative for chills, diaphoresis, fatigue and fever. HENT: Negative for ear pain, tinnitus and trouble swallowing. Eyes: Negative for photophobia and visual disturbance. Respiratory: Negative for cough and shortness of breath. Cardiovascular: Negative for palpitations and leg swelling. Gastrointestinal: Negative for abdominal pain and nausea. Genitourinary: Negative for difficulty urinating and urgency. Musculoskeletal: Negative for arthralgias, back pain, myalgias, neck pain and neck stiffness. Neurological: Negative for tremors, weakness, light-headedness and numbness. Psychiatric/Behavioral: Negative for agitation, confusion and suicidal ideas. OBJECTIVE: 10/15/2024 9:44 AM 08/17/2024 2:21 PM 06/13/2024 2:01 PM Vitals BMI 33.12 kg/m2 32.39 kg/m2 31.47 kg/m2 BSA (m2) 2.18 m2 2.15 m2 2.12 m2 Systolic 124 Diastolic 82 Heart Rate 74 Resp 18 Height (in) 5' 8 5' 8 5' 8 Weight (lb) 217.8 213 207 Visit Report Report Report Report EXAM: Neurological Exam Mental Status Awake, alert and oriented to person, place and time. Oriented to person, place and time. Recent and remote memory are intact. Speech is normal. Language is fluent with no aphasia. Attention and concentration are normal. Cranial Nerves CN II: Visual acuity is normal. Visual kirby full to confrontation. CN III, IV, : Extraocular movements intact bilaterally. Normal lids and orbits bilaterally. Pupils equal round and reactive to light bilaterally. CN V: Facial sensation is normal. CN VII: Full and symmetric facial movement. CN VIII: Hearing is normal. CN XII: Tongue midline without atrophy or fasciculations. Motor Normal muscle bulk throughout. Normal muscle tone. Right Left Wrist flexion 5 5 Wrist extension 5 5 Right Left Deltoid 5 5 Biceps 5 5 Triceps 5 5 Wrist flexor 5 5 Wrist extensor 5 5 Glutei 5 5 Iliopsoas 5 5 Quadriceps 5 5 Gastrocnemius 5 5 Anterior tibialis 5 5 Posterior tibialis 5 5 Sensory Light touch is normal in upper and lower extremities. Pinprick is normal in upper and lower extremities. Vibration is normal in upper and lower extremities. Reflexes Right Left Brachioradialis 2+ 2+ Biceps 2+ 2+ Patellar 2+ 2+ Achilles 2+ 2+ Right Plantar: downgoing Left Plantar: downgoing Right pathological reflexes: Teja's absent. Ankle clonus absent. Left pathological reflexes: Teja's absent. Ankle clonus absent. Coordination Cpkfaz-bw-fhfx, rapid alternating movements and zaad-oc-mumr normal bilaterally without dysmetria. Gait Normal casual, toe, heel and tandem gait. Romberg is absent. PROCEDURE: NONE ASSESSMENT AND PLAN: Valentin Torre is a 69 y.o. male who presents with tremor in the bilateral upper extremities. Possible etiologies include benign essential tremor, extrapyramidal symptoms secondary to medications, or a neurodegenerative process such as Parkinson's disease. An additional consideration would be tremor secondary to a metabolic process or a psychogenic tremor from stress. Diagnoses and all orders for this visit: Intention tremor Start biotin 10 MG capsule; Take 1 capsule (10 mg) by mouth in the morning and 1 capsule (10 mg) before bedtime. Biotin is great for overall brain and nerve health. I counseled the patient on the possible side effects and interactions of medications. Total time 30 minutes spent reviewing records, performing medically appropriate exam, counseling , education, ordering medication, tests, and/or procedures, documenting health information into the health record, communicating results to the patient, and coordinating care. Follow up 8 weeks. documented in this encounter [facility] 10-09-2024 History of Present illness Narrative Subjective Patient ID: Valentin Torre is a 69 y.o. male. Jeffry Torre is a 69 y.o. male presenting today with cough and voice loss. He says that his cough started around 10/30. He went to urgent care one week later. CXR in urgent care was negative. He was given tessalon pearls in urgent care but said that it has not helped. He lost his voice a few days ago and says at times it is hard to breathe, and also has sinus pressure. He tested negative for Covid. He denies fever or chills but does have a sore throat. He has no dysuria or nausea. He feels pressure around his eyes. He is taking immunosuppressants for connective tissue disease. He also came to the office on 09/24 and was given predniSONE (DELTASONE) 20 mg tablet and dsonttxowea-hfymxfhmd-iabdwhri (TRELEGY ELLIPTA) 100-62.5-25 mcg blister with device. Neither medications have helped. He also takes seema, which has not helped either. Cough Pertinent negatives include no chills or fever. The following portions of the patient's history were reviewed and updated as appropriate: allergies, current medications, past family history, past medical history, past social history, past surgical history, problem list, and medication reconciliation was completed including current medication and post discharge medication. Review of Systems Constitutional: Negative for chills and fever. Respiratory: Positive for cough. Gastrointestinal: Negative for abdominal pain and diarrhea. Genitourinary: Negative for dysuria and flank pain. Objective Physical Exam HENT: Head: Normocephalic and atraumatic. Right Ear: Tympanic membrane, ear canal and external ear normal. Left Ear: Tympanic membrane, ear canal and external ear normal. Nose: Congestion and rhinorrhea present. Right Nostril: Occlusion present. Right Turbinates: Enlarged and swollen. Left Turbinates: Enlarged and swollen. Right Sinus: Frontal sinus tenderness present. Left Sinus: Frontal sinus tenderness present. Mouth/Throat: Lips: [place]. Mouth: Mucous membranes are moist. Pharynx: Posterior oropharyngeal erythema and postnasal drip present. No pharyngeal swelling, oropharyngeal exudate or uvula swelling. Eyes: General: No scleral icterus. Extraocular Movements: Extraocular movements intact. Conjunctiva/sclera: Conjunctivae normal. Cardiovascular: Rate and Rhythm: Normal rate and regular rhythm. Pulses: Normal pulses. Heart sounds: Normal heart sounds. No murmur heard. Pulmonary: Effort: Pulmonary effort is normal. No respiratory distress. Breath sounds: No wheezing, rhonchi or rales. Musculoskeletal: Cervical back: Neck supple. Lymphadenopathy: Cervical: No cervical adenopathy. Neurological: General: No focal deficit present. Mental Status: He is alert and oriented to person, place, and time. Psychiatric: Mood and Affect: Mood normal. Behavior: Behavior normal. Thought Content: Thought content normal. Judgment: Judgment normal. Assessment/Plan Valentin was seen today for cough. Diagnoses and all orders for this visit: Subacute frontal sinusitis Will cover with Amoxil as it has been going on for about a month, he has sinus pressure and on immunosuppressants. Rx:Amoxil 875 mg BID x 10 days Hoarseness If it persists he needs to see ENT Other orders - amoxicillin (AMOXIL) 875 mg tablet; Take 1 tablet (875 mg total) by mouth in the morning and 1 tablet (875 mg total) before bedtime. Do all this for 10 days. documented in this encounter [facility] 09-24-2024 History of Present illness Narrative Subjective Patient ID: Valentin Torre is a 69 y.o. male. Valentin presents today for a respiratory illness. His illness began a week ago. He has a cough that has been bothering him. He will go into a fit of coughing about once an hour. He tried a Tessalon Perles and Seema without much success. He has not had a fever. He had pain when he coughed. He can hear himself wheezing at night. He has a lithotripsy coming up in 10 days. He is supposed to be certain medications a week before. The following portions of the patient's history were reviewed and updated as appropriate: allergies, current medications, past family history, past medical history, past social history, past surgical history, problem list, and medication reconciliation was completed including current medication and post discharge medication. Review of Systems Constitutional: Negative. Respiratory: Positive for cough. Negative for shortness of breath. Objective Physical Exam Vitals reviewed. Exam conducted with a manager human resources present (Ramiro Barros MS III). Constitutional: General: He is not in acute distress. Appearance: He is obese. He is not ill-appearing. HENT: Head: Normocephalic. Right Ear: Ear canal and external ear normal. Decreased hearing noted. Tympanic membrane is scarred and erythematous. Left Ear: Ear canal and external ear normal. Decreased hearing noted. Tympanic membrane is scarred and erythematous. Ears: Comments: Wearing hearing aids Nose: Nose normal. Right Turbinates: Not pale. Left Turbinates: Not pale. Right Sinus: No maxillary sinus tenderness. Left Sinus: No maxillary sinus tenderness. Mouth/Throat: Lips: [place]. Mouth: Mucous membranes are moist. Pharynx: Oropharynx is clear. Eyes: General: No scleral icterus. Extraocular Movements: Extraocular movements intact. Conjunctiva/sclera: Conjunctivae normal. Cardiovascular: Rate and Rhythm: Normal rate and regular rhythm. Pulses: Normal pulses. Heart sounds: Normal heart sounds. No murmur heard. Pulmonary: Effort: Pulmonary effort is normal. No respiratory distress. Breath sounds: Normal breath sounds. No wheezing or rales. Musculoskeletal: Cervical back: Neck supple. Lymphadenopathy: Cervical: No cervical adenopathy. Neurological: General: No focal deficit present. Mental Status: He is alert and oriented to person, place, and time. Psychiatric: Attention and Perception: Attention normal. Mood and Affect: Mood normal. Speech: Speech is slurred (Due to hearing loss). Behavior: Behavior normal. Behavior is cooperative. Thought Content: Thought content normal. Cognition and Memory: Cognition normal. Judgment: Judgment normal. Assessment/Plan Valentin was seen today for cough. Diagnoses and all orders for this visit: Upper respiratory tract infection, unspecified type - codeine-guaiFENesin (guaiFENesin AC) 10-100 mg/5 mL liquid; Take 10 mL by mouth 3 (three) times a day as needed for cough. Likely a viral upper respiratory infection. No worrisome symptoms. Will treat conservatively with a 3 day prednisone burst and a sample of Trelegy given. Sounds like he has a component of reactive airway disease. Call if feverish or shortness a breath arises. Other orders - predniSONE (DELTASONE) 20 mg tablet; Take 1 tablet (20 mg total) by mouth 3 (three) times a day for 3 days. - vxnehbvxjnd-zdqkeopjg-dseeoddw (TRELEGY ELLIPTA) 100-62.5-25 mcg blister with device; Inhale 1 puff once daily for 14 days. documented in this encounter [facility] 09-03-2024 Hospital Discharge instructions Patient Education 09/03/2024 [...] Follow these instructions at home: Medicines Take rrud-tpe-eimmfcx and prescription medicines only as told by [...] to keep your pee pale yellow. ?Take kumk-kvi-lxftcss or prescription medicines. ?Eat foods that are [...] provider. Document Revised: 07/08/2023 Document Reviewed: 07/08/2023 [employer] Patient Education 2023 [employer] 09/03/2024 10:59:51 Laser Therapy for Kidney Stones [...] including vitamins, herbs, eye drops, creams, and gbuo-ihv-jbritgb medicines. Any problems you or family members [...] unless your provider tells you to. ?Taking nydt-jpu-hijwhju medicines, vitamins, herbs, and supplements. Tests You [...] provider. Document Revised: 07/08/2023 Document Reviewed: 07/08/2023 [employer] Patient Education 2023 [email or web address]. Follow Up Care 09/19/2023 10:33:39 With:FLAVIO ONEAL, EMILIA Richey Address: [facility] [address], [place] [phone] When: Unknown [facility] 09-03-2024 Note Patient Education Nephrology Laser Therapy [...] these instructions at home: Medicines ? Take wiad-grf-kpeyhcq and prescription medicines only as told by [...] keep your pee pale yellow. ? Take pmth-xzk-zqisxpb or prescription medicines. ? Eat foods that [...] provider. Document Revised: 07/08/2023 Document Reviewed: 07/08/2023 [employer] Patient Education ? 2023 [employer] Laser Therapy for Kidney Stones Laser [...] including vitamins, herbs, eye drops, creams, and bnni-zkq-nzlfcta medicines. ? Any problems you or family [...] Do not e (more content not included)... [facility] 07-25-2024 Evaluation note Diagnosis Onset Date Resolution Arthritis of facet joint of cervical spine acute July 25, 2024 10:01am Arthritis of lumbosacral spine acute July 25, 2 024 10:01am Chronic pain acute July 10:01am Arthritis of facet joint of cervical spine acute July 10:16am Arthritis of lumbosacral spine acute August 20, 2024 10:16am Chronic pain acute August 202023 10:16am Osteoarthritis of right hip acute August 20, 2024 10:16am Primary osteoarthritis of right hip acute August 29 10:05am Cough acute September 19, 2024 9:04am Shortness of breath acute Octob 2023 9:04am [facility] Work Phone: 1(818) 788-363506-25-2024 Hospital Discharge instructions Patient Education 05/15/2024 13:41:01 Benign Prostatic Hyperplasia Benign Prostatic Hyperplasia Benign prostatic hyperplasia (BPH) is an enlarged prostate gland that is caused by the normal agingprocess. The prostate may get bigger as a man gets older. The condition is not caused by cancer. The prostate is a walnut-sized gland that is involved in the production of semen. It is located in front of the rectum and below the bladder. The bladder stores urine. The urethra carries stored urine ou t of the body. An enlarged prostate can press on the urethra. This can make it harder to pass urine. The buildup of urine in the bladder can cause infection. Back pressure and infection may progress to bladder damage and kidney (renal) failure. What are the causes? This condition is part of the normal aging process. However, not all men develop problems from thiscondition. If the prostate enlarges away from the [...] urethra. Follow these instructions at home: Take bfmt-hmh-jsmkhmm and prescription medicines only as told by [...] provider. Document Revised: 05/26/2022 Document Reviewed: 05/26/2022 [employer] Patient Education 2022 [email or web address]. Follow Up Care 03/20/2024 12:59:39 With:LEAH ROA PA-C, URL Address: [address] [facility] [place] [address] When: Unknown [facility] 04-30-2024 Hospital Discharge instructions Patient Education 03/20/2024 13:11:31 Urinary Incontinence Urinary Incontinence Urinary incontinence refers to a condition in which a person is unable to control where and when topass urine. A person with this condition will urinate involuntarily. This means that the person urinates when he or she does not mean to. What are the causes? This condition may be caused by: Medicines. Infections. Constipation. Overactive bladder muscles. Weak bladder muscles. Weak pelvic floor muscles. These muscles provide support for the bladder, intestine, and, in women,the uterus. Enlarged prostate in men. The prostate [...] a small amount, or constantly dribbling urine (overflowincontinence). Urinating because you cannot get to the [...] fiber include beans, whole grains, and fresh fruitsand vegetables. Behavioral changes, such as: ?Pelvic floor [...] stimulation). ?For women, using a medical office technologist to prevent urine leaks. This is a small, tampon-like, disposabledevice that is inserted into the urethra. ?Injecting [...] right after experiencing incontinence. General instructions Take xbby-uly-qptpkwd and prescription medicines only as told by [...] important. Where to find more information National [place] of Diabetes and Digestive and Kidney Diseases: www.niddk.nih.gov [place] [employer]: www.urologyhealth.org Contact a health care [...] is unable to control where and when topass urine. This condition may be caused by medicines, infection, weak bladder muscles, weak pelvic floor muscles, enlargement of the prostate (in men), or surgery. Factors such as older age, obesity, and childbirth, menopause, neurological diseases, andchronic coughing may increase your risk for developing [...] provider. Document Revised: 06/12/2021 Document Reviewed: 06/12/2021 [employer] Patient Education 2022 [email or web address]. 03/20/2024 13:11:28 Cancer Screening for Men Cancer [...] health care provider may recommend screenings for othertypes of cancer if: You had cancer before. [...] a flexible tube with a small camera isinserted into the rectum. CT colonography. This test uses X-rays and a contrast dye to check the colon for polyps. If a polypis found, you may need to have a [...] stool. For this test, you will need tocollect stool samples at home. Stool DNA test. [...] if anything looks unusual. Men with a lauhmm-lkys-bxroki risk for skin cancer may want to see a crm specialist (foundry metallurgist) for an annual body check. What are the benefits of screening? Cancer screening is done to look for cancer in the very early stages, before it spreads and becomesharder to treat and before you would start to notice symptoms. Finding cancer early improves the chances of successful treatment. It may save your life. Where to find more information [place] [employer]: www.cancer.org Centers for Disease Control and Prevention: www.cdc.gov National Cancer [place]: www.cancer.gov Contact a health care provider if: [...] provider. Document Revised: 04/05/2022 Document Reviewed: 10/03/2020 [employer] Patient Education 2022 [email or web address]. 03/20/2024 13:11:20 Urinary Incontinence Urinary Incontinence Urinary incontinence refers to a condition in which a person is unable to control where and when topass urine. A person with this condition will urinate involuntarily. This means that the person urinates when he or she does not mean to. What are the causes? This condition may be caused by: Medicines. Infections. Constipation. Overactive bladder muscles. Weak bladder muscles. Weak pelvic floor muscles. These muscles provide support for the bladder, intestine, and, in women,the uterus. Enlarged prostate in men. The prostate [...] a small amount, or constantly dribbling urine (overflowincontinence). Urinating because you cannot get to the [...] fiber include beans, whole grains, and fresh fruitsand vegetables. Behavioral changes, such as: ?Pelvic floor [...] stimulation). ?For women, using a medical office technologist to prevent urine leaks. This is a small, tampon-like, disposabledevice that is inserted into the urethra. ?Injecting [...] right after experiencing incontinence. General instructions Take hdec-gbn-chxjxtd and prescription medicines only as told by [...] important. Where to find more information National [place] of Diabetes and Digestive and Kidney Diseases: www.niddk.nih.gov [place] [employer]: www.urologyhealth.org Contact a health care [...] is unable to control where and when topass urine. This condition may be caused by medicines, infection, weak bladder muscles, weak pelvic floor muscles, enlargement of the prostate (in men), or surgery. Factors such as older age, obesity, and childbirth, menopause, neurological diseases, andchronic coughing may increase your risk for developing [...] provider. Document Revised: 06/12/2021 Document Reviewed: 06/12/2021 [employer] Patient Education 2022 [email or web address]. 03/20/2024 13:11:17 Kidney Stones, Cqnr-rj-Dofx Kidney Stones Kidney stones are rock-like masses [...] Follow these instructions at home: Medicines Take qstx-jjo-ofkpbda and prescription medicines only as told by [...] provider. Document Revised: 07/12/2022 Document Reviewed: 07/12/2022 [employer] Patient Education 2022 [email or web address]. Follow Up Care 03/16/2024 08:31:59 With:FRANCIS Jimenez APRN, Daria Lechuga, NEYMAR, URL Address: When: Unknown Comments:8 wk w/ PVR [facility] 03-21-2024 Evaluation note* Author Мария Hernandez [facility] Authored February 09, 2024 4:3 4pm 1. 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 Khalil. [facility] Work Phone: 1(157) 971-359502-28-2024 Hospital Discharge instructions Patient Education 01/18/2024 09:34:25 [...] Follow these instructions at home: Medicines Take tcwk-cmo-huvrjfx and prescription medicines only as told by [...] provider. Document Revised: 10/04/2022 Document Reviewed: 07/12/2022 [employer] Patient Education 2022 [email or web address]. 01/18/2024 09:34:24 Lithotripsy Lithotripsy Lithotripsy is a [...] including vitamins, herbs, eye drops, creams, and ehxw-aii-tduapah medicines. Any problems you or family members [...] provider tells you to take them. Taking bzsr-kzm-eyofxrs medicines, vitamins, herbs, and supplements. Tests You [...] provider. Document Revised: 10/04/2022 Document Reviewed: 07/12/2022 [employer] Patient Education 2022 [email or web address]. Follow Up Care 01/03/2024 14:10:04 With:FLAVIO ONEAL, Zac De Oliveira, ONEYDAL Address: [facility] [address] , [place] [address]- When: Unknown [facility] 02-09-2024 Evaluation note* Encounter Date Diagnosis Assessment [...] issue: - Obtain release of information from [facility] for physical therapy notes - Schedule bilateral upper extremity EMG - Follow up in six weeks or after EMG completion Dec, Other Note: Patient h as a history of lupus, previous surgeries, and steroid injections in the knees. [facility] Other 02-07-2024 History of Present illness Narrative* Zaira Cain, DPEduard - 12/28/2023 2:00 PM EST Patient presents [...] X-rays 3 views taken left foot at [facility] reveal fracture of the head of the [...] cancel that appointment. [id number] History of Present illness Narrative* Sascha Sutton, [...] Objective Physical Exam Exam conducted with a manager human resources present (Junior SuMaryam MS III). Constitutional: Appearance: He is obese. [...] views; Future - [facility] [place], [place]; Future Check x-ray of lumbar spine. [...] pain. Monitor portion sizes. 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[facility]) Follow up with balancer scale as directed Antiphospholipid syndrome ([facility] Follow-up with specialist as directed. Cubital tunnel syndrome on right Can try an elbow pad to see if that helps. Consider ortho consult. Paresthesias Intermittent paresthesias on the left side of his neck. Possibly coming from cervical disc disease.Previous cervical CT scan reviewed and did show moderate degenerative disc disease with encroachment of the neural foramina. [facility] Discharge instructions Patient Education 09/19/2023 10:21:28 [...] include: ?8 oz (237 mL) of milk, yyeiusk-kvmwiwangbds-cjxju milk, and calcium- fortifiedfruit juice. Calcium-fortified means [...] ?Spinach (cooked), rhubarb, beets, sweet potatoes, and [place] chard. ?Peanuts. ?Potato chips, cymro fries, and baked potatoes with skin on. ?Nuts and nut products. ?Chocolate. If you regularly take a diuretic medicine, make sure to eat at least 1 or 2 servings of fruits or vegetables that are high in potassium each day. These include: ?Avocado. ?Banana. ?[place], prune, carrot, or tomato juice. ?Baked potato. [...] magnesium, fish oil, or vitamin B6. Take dypu-zmv-evrhuce and prescription medicines only as told by [...] Casseroles. Pizza. Lasagna. Frozen meals. Potato chips. [place] fries. The items listed above may not [...] provider. Document Revised: 07/19/2022 Document Reviewed: 07/19/2022 [employer] Patient Education 2022 [email or web address]. Follow Up Care 08/08/2023 12:11:26 With:FLAVIO ONEAL, Zac De Oliveira, URL Address: [facility] [address] , [place] [phone] When: Unknown [facility] 07-05-2023 Hospital Discharge instructions Follow Up Care 05/25/2023 15:06:06 With:FLAVIO ONEAL, Zac De Oliveira, URL Address: [facility] [address], [place] [phone] When: Unknown [facility] 05-15-2023 [facility] Discharge instructions Additional Instructions DISCHARGE INSTRUCTIONS FOR CARDIAC FOOD BEVERAGE MANAGER PHONE NUMBER OF YOUR PHYSICIAN: [phone] PROCEDURE: Heart Cath The following instructions have [...] cold, numb, blue or white, call the air intelligence officer immediately. 4. ACTIVITY: You are advised to [...] bottle, follow the instructions on the bottle. [facility] is not responsible for incorrect prescription information provided by the patient during their visit. Do not stop your medications without consulting your health care provider. Please take the list with you to your next doctor's appointment.[facility] Work Phone: 1(703) 566-509904-30-2023 Chief complaint Narrative - Reported* VALENTIN TORRE is being seen for a consultation for chest pain. * 67-year-old gentleman seen in cardiology consultation at the request of Dr. Sutton following an episode of severe chest discomfort with left and right neck radiation that occurred at [facility] this past Tuesday with subsequent stress imaging performed after he was admitted at [facility] that was reportedly unremarkable. Patient has since [...] with a heart catheterization sometime next week [facility] DO Work Phone: 1(421) 679-285205-20-2022 NotePROCEDURE: XR SHOULDER RT 2V or > HISTORY: Unspecified fall COMPARISON: None. FINDINGS: BONES:Narrowing of the acromioclavicular joint without significant undersurface osteophytes. Narrowing of the glenohumeral joint without fracture or dislocation. SOFT TISSUES:No visible soft tissue swelling. EFFUSION:None visible. OTHER: Negative. IMPRESSION: 1. No acute bone abnormality. 2. Mild-moderate degenerative changes. Electronically authenticated by: PRIMO GALE Date: 2022-04-09 17:07[facility] NotePROCEDURE: XR ELBOW RT MIN 3 VIEWS HISTORY: Unspecified fall COMPARISON: None. FINDINGS: BONES:Mild-moderate degenerative changes. No fracture, dislocation, bone lesion. SOFT TISSUES:No visible soft tissue swelling. EFFUSION:None visible. OTHER: Negative. IMPRESSION: 1. No acute bone abnormality of the right elbow. Electronically authenticated by: PRIMO GALE Date: 2022-04-09 16:53[facility] Future Appointments Appointment Date:08/08/2023 11:45:00 AM Scheduled Provider:Zac MUNIZ MD Location:[facility] Appointment Type:URO Office Visit [facility] evaluation + Plan note Future Appointments Appointment Date:09/19/2023 09:30:00 AM Scheduled Provider:Zac MUNIZ MD Location:[facility] Appointment Type:URO Office Visit [facility] evaluation + Plan note Future Appointments Appointment Date:03/23/2024 08:15:00 AM Scheduled Provider:Zac MUNIZ MD Location:[facility] Appointment Type:URO Office Visit Diagnostic Tests Pending * Electrolyte Panel 09/19/23 [facility] evaluation + Plan note Future Appointments Appointment Date:03/23/2024 08:15:00 AM Scheduled Provider:Zac MUNIZ MD Location:[facility] Appointment Type:URO Office Visit [facility] Evaluation + Plan note Future Appointments Appointment Date:03/23/2024 08:15:00 AM Scheduled Provider:Zac MUNIZ MD Location:[facility] Appointment Type:URO Office Visit Diagnostic Tests Pending * Calculi Analysis [facility] Appointment Date:05/15/2024 09:30:00 AM Scheduled Provider:FRANCIS Jimenez APRN, [place] [facility] Location:[facility] Appointment Type:URO Office Visit Appointment Date:09/03/2024 09:45:00 AM Scheduled Provider:Zac MUNIZ MD Location:[facility] Appointment Type:URO Office Visit [facility] evaluation + Plan note Future Appointments Appointment Date:09/03/2024 09:45:00 AM Scheduled Provider:Zac MUNIZ MD Location:[facility] Appointment Type:URO Office Visit [facility] evaluation noteNo assessment information available [facility] Work Phone: Evaluation note* Diagnosis Essential hypertension- [...] of skin sensation [facility] Diagnosis Pronation deformity of both feet- Primary Chronic pain of both knees [facility] Diagnosis Onset Date Resolution Status [...] of lumbosacral spine acute Chronic pain acute [facility] Work Phone: Evaluation note* Diagnosis Onset [...] of lumbosacral spine acute Chronic pain acute [facility] Work Phone: Evaluation note* Diagnosis Onset [...] of lumbosacral spine acute Chronic pain acute [facility] Work Phone: Evaluation note* Diagnosis Onset [...] of lumbosacral spine acute Chronic pain acute [facility] Work Phone: Evaluation note* Diagnosis Onset Date [...] of lumbosacral spine acute Chronic pain acute [facility] Work Phone: Evaluation note* Diagnosis Onset [...] of lumbosacral spine acute Chronic pain acute [facility] Work Phone: Evaluation note* Diagnosis Onset [...] of lumbosacral spine acute Chronic pain acute [facility] Work Phone: Evaluation note* Diagnosis Onset [...] pain acute Osteoarthritis of right hip acute [facility] Work Phone: Evaluation note* Diagnosis Onset [...] pain acute Osteoarthritis of right hip acute [facility] Work Phone: Evaluation note* Diagnosis Onset [...] pain acute Osteoarthritis of right hip acute Primary osteoarthritis of right hip acute [facility] Work Phone: Evaluation note* Diagnosis Onset [...] pain acute Osteoarthritis of right hip acute Primary osteoarthritis of right hip acute Cough acute Shortness of breath acute [facility] Work Phone: Evaluation note* Diagnosis Upper respiratory tract infection, unspecified type- Primary [facility] Diagnosis Subacute frontal sinusitis- Primary Hoarseness Dysphonia documented in this encounter [facility] Diagnosis Intention tremor- Primary Essential and other specified forms of tremor documented in this encounter [facility] general [...] back surgery 2019 Hospitalization History See above [facility] Other History of Present illness Narrative* The [...] medication regimen. He denies medication side effects. [facility] DO Work Phone: Hospital course Narrative No data available for this section [facility] Hospital Discharge instructions No data available for this section [facility] Hospital Discharge instructions Additional Instructions Your [...] or concerns, do not hesitate to come back.[facility] Work Phone: Hospital Discharge instructions Additional Instructions [...] appointment to see your physician in two weeks.[facility] Work Phone: InstructionsNot on filedocumented in this encounter [facility] SystemInstructionsNot on filedocumented in this encounter [facility] SystemInstructionsNot on filedocumented in this encounter [facility] SystemInstructionsNot on filedocumented in this encounter [facility] note No data available for this section [facility] reason for referral (narrative)* Consultation (Routine) - Authorized Specialty Diagnoses / Procedures Referred By Jd t Referred To Contact Rehabilitation Diagnoses Midline low back pain without sciatica, unspecified chronicity Sascha Sutton DO [address], [facility] [place] [address] [facility] [address] [place] [address] Referral ID Status Reason Start Date Expiration Date Visits Requested Visits Authorized [id number] Authorized Specialty Services Required 12/14/2023 12/13/2024 1 1 ER [facility] Summary Purpose Family History Relationship Condition Age [...] Date/ Time Advance Directives Yes January 29, 2 024 3:03pm Advance Directive Response Recorded Date/ Time Advance Directives Yes May 28 2:11pm Advance Directive Response Recorded Date/ Time Advance Directives Yes June 27, 024 2:59pm Advance Directive Response Recorded Date/ Time Advance Directives Yes January 29 024 2:03pm Chief Complaint and Reason for Visit Chief [...] m54.12 n20.0 f/u emg,mri results sx consult M48. m35.00 z79.899 m15.0 Reason for Visit Compression [...] m54.12 n20.0 f/u emg,mri results sx consult M48. m35.00 [...] m54.12 n20.0 f/u emg,mri results sx consult M48. m35.00 [...] Elbow Ulnar Neuropathy of Upper Right Elbow SECURITY NURSE REFF BY DR. MCKENZIE KHALIL Reason for [...] Elbow Ulnar Neuropathy of Upper Right Elbow SECURITY NURSE REFF BY DR. MCKENZIE KHALIL MARÍA LUMBAR [...] Elbow Ulnar Neuropathy of Upper Right Elbow SECURITY NURSE REFF BY DR. MCKENZIE KHALIL MARÍA LUMBAR [...] Elbow Ulnar Neuropathy of Upper Right Elbow SECURITY NURSE REFF BY DR. MCKENZIE KHALIL MARÍA LUMBAR [...] Elbow Ulnar Neuropathy of Upper Right Elbow SECURITY NURSE REFF BY DR. MCKENZIE KHALIL MARÍA LUMBAR [...] Elbow Ulnar Neuropathy of Upper Right Elbow SECURITY NURSE REFF BY DR. MCKENZIE KHALIL MARÍA LUMBAR [...] Elbow Ulnar Neuropathy of Upper Right Elbow SECURITY NURSE REFF BY DR. MCKENZIE KHALIL MARÍA LUMBAR [...] Elbow Ulnar Neuropathy of Upper Right Elbow SECURITY NURSE REFF BY DR. MCKENZIE KHALIL MARÍA LUMBAR [...] Elbow Ulnar Neuropathy of Upper Right Elbow SECURITY NURSE REFF BY DR. MCKENZIE KHALIL MARÍA LUMBAR [...] Elbow Ulnar Neuropathy of Upper Right Elbow SECURITY NURSE REFF BY DR. MCKENZIE KHALIL MARÍA LUMBAR [...] Elbow Ulnar Neuropathy of Upper Right Elbow SECURITY NURSE REFF BY DR. MCKENZIE KHALIL MARÍA LUMBAR [...] LEFT CERVICAL FACET RFA CONSULT DR MCLEOD M25.551 - Pain in right hip Reason for [...] pain Osteoarthritis of right hip Chief Complaint F/U AFTER MARÍA LUMB R FA M35.00 Z79.899 M15.0 CERVICAL MBB C3 C4 LEFT/CJ F/U LEFT CERVICAL MBB LEFT CERVICAL MBB C3 C4/DS F/U AFTER 2ND LEFT CERVICAL MBB LEFT CERVICAL FACET RFA C3 C4 /VW F/U LEFT CERVICAL FACET RFA CONSULT DR MCLEOD M25.551 - Pain in right hip *[facility] INTRA-ARTICULAR HIP JOINT Reason for Visit Arthritis of facet j [...] spine Chronic pain Osteoarthritis of right hip Primary osteoarthritis of right hip Chief Complaint F/U AFTER MARÍA LUMB R FA M35.00 Z79.899 M15.0 CERVICAL MBB C3 C4 LEFT/CJ F/U LEFT CERVICAL MBB LEFT CERVICAL MBB C3 C4/DS F/U AFTER 2ND LEFT CERVICAL MBB LEFT CERVICAL FACET RFA C3 C4 /VW F/U LEFT CERVICAL FACET RFA CONSULT DR MCLEOD M25.551 - Pain in right hip *[place] INTRA-ARTICULAR HIP JOINT cough R05.9 - Cough, unspecified Reason for Visit Arthritis of facet j [...] spine Chronic pain Osteoarthritis of right hip Primary osteoarthritis of right hip Cough Shortness of breath Chief Complaint Admit Date LEFT CERVICAL MBB C3 C4/DS June 2:14pm F/U AFTER 2ND LEFT CERVICAL MBB Septemb2023 10:01am LEFT CERVICAL FACET RFA C3 C4 /VW Sept ember 2023 3:01pm F/U LEFT CERVICAL FACET RFA August 202023 10:16am CONSULT DR MCLEOD August 29, 2024 10 :05am M25.551 - Pain in right hip August 29, 2024 10:09am *[employer] INTRA-ARTICULAR HIP JOINT September 05, 2024 12:12pm cough September 19, 2024 9 :04am R05.9 R06.02 September 19, 2024 9 :42am M35.00 z79.899 m15.0 October 10, 2024 9:55am Reason for Visit Admit Date Arthritis of facet joint of cervical spi ne July 25, 2024 10:01am Arthritis of lumbosacral spine July 25, 2024 10:01am Chronic pain July 25, 2024 10:01am Arthritis of facet joint of cervical spi ne August 20, 2024 10:16am Arthritis of lumbosacral spine August 20, 2024 10:16am Chronic pain August 20, 2024 10:16am Osteoarthritis of right hip August 202023 10:16am Primary osteoarthritis of right hip Octo 2023 10:05am Cough September 19, 2024 9 :04am Shortness of breath September 19, 2024 9 :04am Chief Complaint * Routine f/u: 'heart stuart [...] region without neurogenic claudication (M48.061) Referral Organization [facility] Referring Provider First Name Мария Referring Provider Last Name David Referring Provider Specialty Nurse Pool hernández Referred Organization [facility] Referred Provider Primo Jenkins Referred Address [address] [place],[address] Referred Provider Specialty Neurology Referral Priority Routine [...] section and content) DATE CREATED AUTHOR 05/09/2018 [facility] DATE CREATED AUTHOR AUTHOR'S ORGANIZ ATION 05/10/2018 [facility] DATE CREATED AUTHOR AUTHOR'S ORGANIZ ATION 03/29/2023 [facility] DATE CREATED AUTHOR AUTHOR'S ORGANIZ ATION 04/01/2023 [facility] DATE CREATED AUTHOR AUTHOR'S ORGANIZ ATION 04/05/2023 [facility] ical Center DATE CREATED AUTHOR AUTHOR'S ORGANIZ ATION 12/18/2023 [facility] DATE CREATED AUTHOR AUTHOR'S ORGANIZ ATION 02/20/2024 [facility] DATE CREATED AUTHOR AUTHOR'S ORGANIZ ATION 09/05/2024 [facility] DATE CREATED AUTHOR AUTHOR'S ORGANIZ ATION 10/12/2024 [facility] DATE CREATED AUTHOR AUTHOR'S ORGANIZ ATION 10/17/2024 [facility] EPIC DATE CREATED AUTHOR AUTHOR'S ORGANIZ ATION 10/21/2024 [facility] Care Teams (unrecognized sec tion and content) [...] 2024 Team Status: Active Member Role Status Radah Mcleod MD Primary Care Provide r, Attending [...] 2024 End: August 29, 2024 Team Status: Inactive Member Role Status Radha Mcleod MD Primary Care Provide r, Attending Provider Active Start: September 05, 2024 End: September 05, 2024 Team Status: Active Member Role Status Radha Mcleod MD Primary Care Provide r, Attending Provider Active Start: June 06, 2024 Team Status: Inactive Member Role Status Dates Edenilson Mcleod MD Primary Care Provide r, Attending Provider Active Start: June 06, 2024 End: June 06, 2024 Team Status: Active Member Role Status [...] Sascha Sutton DO Primary Care Provider Active Team Status: Inactive Member Role Status Dates Sascha Sutton DO Primary Care Provider Active WILLOW Paul Attending Provider Active Team Status: Inactive Member Role Status Dates Sascha Sutton DO Primary Care Provider Active KARIN Madrigal Attending Provider Active Team Status: Inactive Member Role Status Dates Sascha Sutton DO Primary Care Provider Active Melanie Trujillo DO Attending Provider Active Team Status: Inactive Member Role Status Dates Sascha Sutton DO Primary Care Provider, Marcela pfeiffer Active Team Status: Inactive Member Role Status Dates Sascha Sutton DO Primary Care Provider Active Edenilson Reinoso Jr, MD Emergency Provider Active Team Status: Inactive Member Role Status Dates Sascha Sutton DO Primary Care Provider Active Romel Orta DO Emergency Provider Active Team Status: Inactive Member Role Status Dates Sascha Sutton DO Primary Care Provider Active Zac Muniz MD Attending Provider Active Team Status: Inactive Member Role Status Dates Sascha Sutton DO Primary Care Provider Active WILLOW Paul Attending Provider Active Zac Muniz MD Referring Provider Active Team Status: Inactive Member Role Status Dates Sascha Sutton DO Primary Care Provider Active Romel Davis MD Attending Provider Active Team Status: Inactive Member Role Status Dates Sascha Sutton DO Primary Care Provider Active Start: September 12, 2023 End: September 12, 2023 Romel Davis MD Attending Provider Active St art: September 12, 2023 End: September 12, 2023 Team Status: Inactive Member Role Status Dates Sascha Sutton DO Primary Care Provider Active Start: October [...] December 08, 2023 End: December 08, 2023 Machine Assembler Relationship Specialty Start Date End Date Sascha Sutton DO [address] [facility] [place] [address] PCP - General Family Medicine 09/23/22 Team Status: Inactive Member Role Status Dates Sascha Sutton DO Primary Care Provide r, Attending Provider Active Start: December 15, 2023 End: December 15, 2023 Machine Assembler Relationship Specialty Start Date End Date Sascha Sutton MD [address] [facility] [place] [address] PCP - General Family Medicine 12/28/23 Team Status: Inactive Member Role Status Dates Sascha Sutton DO Primary Care Provider Active Start: December 30, 2023 End: December 30, 2023 WILLOW Barros Attending Provider Active Start: December 30, 2023 End: December 30, 2023 Team Status: Inactive Member Role Status Dates Sascha Cynthiacierra DO Primary Care Provider Active Start: January 02, 2024 End: January 03, 2024 Edenilson Reinoso Jr, MD Emergency Provider Active Start: January 02, 2024 End: January 03, 2024 Team Status: Inactive Member Role Status Dates Sascha Cynthiacierra DO Primary Care Provider Active Start: January 10, 2024 End: January 10, 2024 WILLOW Barros Attending Provider Active Start: January 10, 2024 End: January 10, 2024 Team Status: Inactive Member Role Status Dates Sascha Cynthiacierra DO Primary Care Provider Active Start: January 11, 2024 End: January 11, 2024 Zac Muniz MD Attending Provider Active St art: January 11, 2024 End: January 11, 2024 Team Status: Inactive Member Role Status Dates Sascha Cynthiacierra DO Primary Care Provider Active Start: February 09, 2024 End: February 09, 2024 WILLOW Barros Attending Provider Active Start: February 09, 2024 End: February 09, 2024 Team Status: Inactive Member Role Status Dates Asscha Cynthiacierra DO Primary Care Provider Active Start: February 21, 2024 End: February 21, 2024 Mckenzie Khalil MD Attending Provider Active Star t: February 21, 2024 End: February 21, 2024 Team Status: Inactive Member Role Status Dates Sascha Cynthiacierra DO Primary Care Provider Active Start: March 08, 2024 End: March 08, 2024 Mckenzie Khalil MD Attending Provider Active Star t: March 08, 2024 End: March 08, 2024 Team Status: Inactive Member Role Status Dates Sascha Cynthiacierra , DO Primary Care Provider Active Start: March 13, 2024 End: March 13, 2024 Romel Davis MD Attending Provider Active St art: March 13, 2024 End: March 13, 2024 Team Status: Inactive Member Role Status Dates Sascha Cynthiacierra , DO Primary Care Provider Active Start: March 29, 2024 End: March 29, 2024 Mckenzie Khalil MD Attending Provider Active Star t: March 29, 2024 End: March 29, 2024 Team Status: Inactive Member Role Status Dates Sascha Cynthiacierra DO Primary Care Provider Active Start: April [...] 11, 2024 End: April 11, 2024 Mckenzie Kahlil MD Referring Provider Active Star t: April [...] May 02, 2024 End: May 02, 2024 Machine Assembler Relationship Specialty Start Date End Date Sascha Sutton DO [address] [facility], [place] [address] PCP - General Family Medicine 09/23/22 Team Status: Active Member Role Status Dates Edenilson Mcleod MD Primary Care Provide r, Attending Provider Active Start: September 05, 2024 Team Status: Active Member Role Status Dates Edenilson Mcleod MD Primary Care Provider Active Start: September 06, 2024 Carlos Owusu DO Attending Provider Active Sta rt: September 06, 2024 Team Status: Inactive Member Role Status Dates Edenilson Mcleod MD Primary Care Provider Active Start: September 19, 2024 End: September 19, 2024 Myriam Fonseca APRN Attending Provider Active S tart: September 19, 2024 End: September 19, 2024 Team Status: Active Member Role Status Dates Edenilson Mcleod MD Primary Care Provider Active Start: September 19, 2024 Myriam Fonseca APRN Attending Provider Active S tart: September 19, 2024 Machine Assembler Relationship Specialty Start Date End Date Sascha Sutton DO [address] [place] [address] PCP - General Family Medicine 09/23/22 Machine Assembler Relationship Specialty Start Date End Date Sascha Sutton DO [address] [place] [address] PCP - General Family Medicine 09/23/22 Team Status: Inactive Member Role Status Dates Sascha Sutton DO Primary Care Provider Active Start: October 10, 2024 End: October 10, 2024 Romel Davis MD Attending Provider Active St art: October 10, 2024 End: October 10, 2024 Machine Assembler Relationship Specialty Start Date End Date Sascha Sutton MD [address] [place] [address] PCP - General Family Medicine 12/28/23 Mckenzie Khalil MD [address] [place] [address] [place] [address] Referring Physician Neurosurgery 06/13/24 Carlos [place] DO [address] [place] [address] Otolaryngology 06/13/24 Machine Assembler Relationship Specialty Start Date End Date Sascha Sutton MD [address], [place] [address] PCP - General Family Medicine 12/28/23 Mckenzie Khalil MD [address], [place] [address] Referring Physician Neurosurgery 06/13/24 Carlos [place] DO [address] [place] [address] Otolaryngology 06/13/24 Goals (unrecognized section and content) Goals may [...] alternate sectionNot on filedocumented as of this encounterNot on filedocumented as of this encounterNot on filedocumented as of this encounterGoals may be documented in an alternate section Reason for Visit (unrecogniz ed section and content) Reason Comments Foot Orthotics Reason Comments Med Refill Reason Comments Cough Reason Comments Cough Lost voice FOR RECORDS PERTAINING TO PATIENTS WHO ARE [...] BE BASED ON THE PRIMARY CLINICAL RECORDS. [employer] provides no warranty or guarantee of the accuracy or completeness of information in this document.
--- NOTE | 2024-10-25 06:45 | XR_ITS ---
The [address] [address] Patient Name: MARVA TORRE MRN: [id number] date: 1955 Sex: M Assigned Patient Location: [facility] Current Patient Location: [facility] Accession/Order Number: [id number] Exam Date: 10/25/2024 06:35 Report Date: 10/25/2024 07:30 At the request of: JANET MUNIZ Procedure: XR abdomen 1V EXAMINATION: XR abdomen 1V HISTORY: kidney stones COMPARISON: No relevant comparison available. FINDINGS: KIDNEY/URETER - RIGHT: 4 mm upper pole nephrolith KIDNEY/URETER - LEFT: No visible renal or ureteral calcifications. PELVIS: No visible ureteral calcifications. Any visible calcifications favor phleboliths. BOWEL: No abnormal dilation or deviation. BONES: No acute abnormality. Lumbar spine fusion OTHER: Negative. No abnormal gaseous collections. XR/XR abdomen 1V IMPRESSION: Stable 4 mm right nephrolith Electronically authenticated by: HOWIE KUMAR Date: 10/25/2024 07:30
[2024-10-25] MEDS: LACTATED RINGER'S SOLUTION 1,000 ML 50 ML IV (07:31)
[2024-10-25] MEDS: CIPROFLOXACIN 400 MG/200 ML D5W PREMIX 200 MG IV (07:52)
--- NOTE | 2024-10-25 08:20 | P.URON_ITS ---
Urology Surgery Operative Note Operative Note Procedure Date: 10/25/24 Time Out Performed: yes Pre-op Diagnosis: Right nephrolithiasis Post-op Diagnosis: same as pre-op Procedures performed: 1. Right ESWL. Anesthesia: General-LMA Primary Surgeon: Zac Iglesias Complications: None Estimated blood loss (mL): 0 Specimens: None Indications for Procedures: This gentleman has a 5 mm stone in the right kidney which is nonobstructing. He now presents for right ESWL. He has signed an informed consent for the procedure after risks were explained. Some of these risks include bleeding, perinephric hematoma, infection and anesthesia to name a few. Detailed description of Procedure: The patient was brought to the Operating Room and placed on Siemens electromagnetic lithotripsy treatment table in the supine position. SCDs were placed on their lower extremities and turned on and functioning during the entire case. Timeout was done by all parties in the room. We all agreed upon the patient's identification and the planned procedures for this patient. General Anesthesia was then administered via LMA. Treatment head was then brought to the patient's correct side. While using flourscopy the stone was identified and lined up into the crosshairs. We then began applying shocks to this right kidney stone. The stone was very quick to fragment. We began shocking at a power level 2.0 and increased to a maximum power level of 3.5. We ended up giving 1000 shocks. The stone was entirely fragmented at this time. The procedure was then terminated. He was then transferred to a rlong beach bed and wheeled to PACU in stable condition.
== END 2024-10-25 09:30 | disposition home or self-care (01) ==
PROVIDERS: PCP Family Medicine; Visit Provider Urology
PROC: (CPT 50590; principal; 2024-10-25 08:00)
DX: N20.0 Calculus of kidney (principal); M06.9 Rheumatoid arthritis, unspecified; E78.5 Hyperlipidemia, unspecified; R31.9 Hematuria, unspecified; I10 Essential (primary) hypertension; Z87.891 Personal history of nicotine dependence; K21.9 Gastro-esophageal reflux disease without esophagitis; R13.10 Dysphagia, unspecified
CPT/HCPCS: 50590; 36415; 74018; J0744; J1100; J2405; J2704; J3010

== ENCOUNTER 2025-04-22 07:41 | Outpatient (OUT) | payer MEDICARE, SELFPAY ==
--- OUTSIDE RECORDS SUMMARY | 2025-04-09 16:10 | XMS_ITS | Encounter Summary ---
Author Organization [facility] Address [address] [place] [address] Care Team Providers Care Wallpaper Hanger Helper Name Role Phone Arsenio Loera MD Unavailable SpandreaCarlos DO Unavailable [phone] Sascha Larsen MD Primary Care Provider [phone] Reason for Visit * Reason Comments Toenail Care Non dm nail care Encounter Details Date Type Department Care Team (Latest Contact Info) Description 04/09/2025 4:10 PM EDT Procedure Visit [facility] [address] [place] [address] Kali Terrazas, DPEduard [address] [address] Tenosynovitis of right lower leg (Primary Dx); Su splint, right, initial encounter; 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; Contracture of right ankle; Xerosis cutis; Pain due to onychomycosis of toenails of both feet Social History Tobacco Use Types Packs/Day Years Used Date Smoking Tobacco: Former Cigarettes Smokeless Tobacco: Never Tobacco Cessation:Counseling Given: Yes Alcohol Use Standard Drinks/Week Comments Never 0 (1 standard drink = 0.6 oz pur e alcohol) none caffeine Sex and Gender Information Value Date Recorded Sex Assigned at Not on file Legal Sex Male 6:58 PM EDT Gender Identity Not on file Sexual Orientation Not on file documented as of this encounter Last Filed Vital Signs Vital Sign Reading Time Taken Comments Blood Pressure - - Pulse - - Temperature - - Respiratory Rate 16 04/09/2025 4:02 PM EDT Oxygen Saturation - - Inhaled Oxygen Concentration - - Weight 97.1 kg (214 lb) 04/09/2025 4:02 PM EDT Height 172.7 cm (5' 8 ) 04/09/2025 4:02 PM EDT Body Mass Index 32.54 04/09/2025 4:02 PM EDT documented in this encounter Progress Notes * Kali Terrazas DPM - 04/09/2025 4:10 PM EDT Patient: Valentin Wong : 1955 PCP: Sascha Larsen MD SUBJECTIVE This is a 69 y.o. male that presents today for follow up of suspected right EDL tendinitis with su splint. Is taking nsaids as well as using walking boot and ice and PT with slight improvement. Patient rates pain a 5/10 Patient does have limb length discrepancy and orthotics Patient presents today with a CC of elongated, thick nails. Pt states nails have been elongated and thick for many years and cause pain with ambulation in shoegear. Pt has tried previous treatment with minimal relief. Pt presents today for nail care and treatment. Patient also presents today for follow-up of dry skin and fissures to feet and has been using prescribed or recommended [id number] cream with positive improvement. Patient has history of SLE and rheumatoid arthritis. Allergies: Allergies Allergen Reactions Aspirin Buf(Zdvict-Mkgblv-Vps) Other Reaction(s): Other (See Comments), Unknown Abdominal pain Calcium Carbonate GI intolerance Cephalexin Other Reaction(s): Unknown, Unknown, Unknown Reaction Cephalosporins Unknown Magnesium GI intolerance Oxycodone Hallucinations Other Reaction(s): Hallucinating, Mental Status Change, Unknown Sulfa Antibiotics Rash Other Reaction(s): Other (See Comments), Unknown Past Medical History: Past Medical History: Diagnosis Date Arthritis shoulder and knee prob Bleeding take ASA Cleft palate 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CMS/HCC) Elevated partial thromboplastin time (PTT) Eye cancer, left (CMS/HCC) Fracture fracture toes & fingers Fracture, ribs Hearing loss History of VDRL false positive Hyperlipidemia (CMS/HCC) Hypertension (CMS/HCC) Inverted T wave when not active Iritis Kidney stones Lupus Osteoporosis (CMS/HCC) Perforated eardrum RA (retrograde amnesia) Seasonal allergies Medications: Current Outpatient Medications: acetaminophen (Tylenol) 500 MG tablet, Take by mouth, Disp: , Rfl: biotin 10 MG capsule, Take 1 capsule (10 mg) by mouth in the morning and 1 capsule (10 mg) before bedtime., Disp: 60 capsule, Rfl: 11 budesonide (Rhinocort AQ) 32 MCG/ACT nasal spray, 62,500 sprays, Disp: , Rfl: colchicine 0.6 MG tablet, , Disp: , Rfl: dexAMETHasone (Decadron) 2 MG tablet, Take 1 tablet by mouth once daily for 7 days., Disp: 7 tablet, Rfl: 1 folic acid (Folvite) 1 MG tablet, folic acid 1 mg tablet, Disp: , Rfl: hydroxychloroquine (Plaquenil) 200 MG tablet, hydroxychloroquine 200 mg tablet TAKE 1 TABLET BY MOUTH TWICE A DAY, Disp: , Rfl: leflunomide (Arava) 10 MG tablet, , Disp: , Rfl: leucovorin (Wellcovorin) 5 MG tablet, Take by mouth. Take with a full glass of water., Disp: , Rfl: lisinopril-hydroCHLOROthiazide 20-12.5 MG tablet, Take 1 tablet by mouth in the morning., Disp: , Rfl: meloxicam (Mobic) 15 MG tablet, , Disp: , Rfl: methotrexate (Xatmep) 2.5 MG/ML oral solution, Take 2.5 mg by mouth, Disp: , Rfl: Methotrexate Sodium (methotrexate PF) 50 MG/2ML syringe, , Disp: , Rfl: montelukast (Singulair) 10 MG tablet, Take by mouth, Disp: , Rfl: nabumetone (Relafen) 750 MG tablet, Take 750 mg by mouth, Disp: , Rfl: omeprazole (PriLOSEC) [address] capsule, , Disp: , Rfl: potassium bicarbonate (K-Lyte) 25 MEQ effervescent tablet, Take by mouth, Disp: , Rfl: prednisoLONE acetate (Pred-Forte) 1 % ophthalmic suspension, , Disp: , Rfl: primidone (Mysoline) 50 MG tablet, Take 1 tablet (50 mg) by mouth Daily AND 3 tablets (150 mg) at bedtime., Disp: 360 tablet, Rfl: 3 simvastatin (Zocor) 20 MG tablet, Take 20 mg by mouth at bedtime, Disp: , Rfl: tamsulosin (Flomax) 0.4 MG 24 hr capsule, Take 0.4 mg by mouth Daily, Disp: , Rfl: traMADol (Ultram) 50 MG tablet, Take by mouth, Disp: , Rfl: Social History: Social History Socioeconomic History Marital status: Spouse name: Not on file Number of children: Not on file Years of education: Not on file Highest education level: Not on file Occupational History Not on file Tobacco Use Smoking status: Former Types: Cigarettes Smokeless tobacco: Never Substance and Sexual Activity Alcohol use: Never Comment: none caffeine Drug use: Not on file Sexual activity: Not on file Other Topics Concern Not on file Social History Narrative Not on file Social Drivers of Health Financial Resource Strain: Low Risk (04/14/2023) Received from [facility] Overall Financial Resource Strain (CARDIA) Difficulty of Paying Living Expenses: Not hard at all Food Insecurity: No Food Insecurity (02/25/2025) Received from [facility] Hunger Screening Within the past 12 months we worried whether our food would run out before we got money to buy more.: Never True Within the past 12 months the food we bought just didn't last and we didn't have money to get more.: Never True Transportation Needs: No Transportation Needs (04/14/2023) Received from [facility] PRAPARE - Transportation Lack of Transportation (Medical): No Lack of Transportation (Non-Medical): No Physical Activity: Inactive (05/01/2024) Received from [facility] Exercise Vital Sign Days of Exercise per Week: 0 days Minutes of Exercise per Session: 0 min Stress: No Stress Concern Present (04/14/2023) Received from [facility] [place] [facility] - Occupational Stress Questionnaire Feeling of Stress : Not at all Social Connections: Moderately Integrated (04/14/2023) Received from [facility] Social Connection and Isolation Panel [NHANES] Frequency of Communication with Friends and Family: Once a week Frequency of Social Gatherings with Friends and Family: Once a week Attends Anabaptist Services: More than 4 times per year Active Member of Clubs or Organizations: Yes Attends Club or Organization Meetings: Never Marital Status: Intimate Partner Violence: Not on file Housing Stability: Low Risk (04/14/2023) Received from [facility] Housing Instability Are you worried or concerned that in the next two months you may not have stable housing that you own, rent or stay in as a part of a household?: No ROS: General: denies fever, chills, fatigue, malaise Gastrointestinal: denies abdominal pain, ulcers, or changes in appetite or bowel habits Musculoskeletal: Positive history of gouty arthritis as well as right total knee replacement history of rheumatoid arthritis and lupus with connective tissue disease Cardiovascular: denies CP, palpitations, irregular rhythms OBJECTIVE LE EXAM: DERM: Elongated thick yellow crumbly nails digits 1 through 10. Positive hair growth b/l feet. Dorsum of 1st metatarsal cuneiform joint bilaterally have positive bony exostosis Diminished fissure to right heel with negative drainage or erythema VASC: Positive palpable pedal pulses bilaterally NEURO: Gross sensation intact to bilateral feet ORTHO: Positive pain on palpation to toenails of the left 1,2,3,4,5 toes and right 1,2,3,4,5 toes Minimal pain to bony exostosis to bilateral feet Notable left leg longer than right leg of a proximally [id number] Greatly diminished pain on palpation right heel fissure positive pain on palpation of right lateral anterior su along tibial crest and extends along the EDL tendon complex to dorsum of his foot with pain with resisted dorsiflexion of foot and ankle on the right ASSESSMENT 1. Tenosynovitis of right lower leg 2. Su splint, right, initial encounter 3. 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 Contracture of right ankle 5. Xerosis cutis 6. Pain due to onychomycosis of toenails of both feet PLAN Pt encouraged to continue with hydrating creams to feet with offer for medication and/or prescription refill. Continue with orthotics . Patient to continue with oral anti - inflammatories as needed for pain and recommended OTC medications such as tylenol or Ibuprofen Recommended to apply ice to affected areas for 20 minutes, twice daily. Ice should not be applied directly to skin. Debride nails in length and thickness digits 1 through 10 Kali Terrazas DPM documented in this encounter Plan of Treatment Upcoming Encounters Date Type Department Care Team (Late st Contact Info) Description 05/15/2025 10:20 AM EDT Office Visit [facility] [address] [place] [address] Phoebe Connell, REPLANTING MACHINE [employer]W [address] [place] [address] 06/20/2025 10:00 AM EDT Procedure Visit [facility] [address] [place] [id number] Kali Terrazas, DPM [address] [facility] [address] [place] [address] 12/18/2025 1:45 PM EST Office Visit [facility] [address] [place] [address] Carlos Eden DO [address] [place] [address] documented as of this encounter Visit Diagnoses Diagnosis Tenosynovitis of right lower leg- Primary Su splint, right, initial encounter 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 [place] [address] PCP - General Family Medicine 01/30/25 Arsenio Loera MD [address] [place] [address], [address] [place] [address] Referring Physician Neurosurgery 06/13/24 Carlos Eden DO [address] [place] [address] Otolaryngology 06/13/24 documented as of this encounter
--- OUTSIDE RECORDS SUMMARY | 2025-04-16 16:45 | XMS_ITS | Encounter Summary ---
Author Organization [facility] tem Address [id number] [place] [address] Care Team Providers Care Surveyor Helper Name Role Phone Sascha Larsen DO Primary Care Provider [phone] Reason for Visit * Reason Comments Pain in the right burr/swollen foot.raquel marin Encounter Details Date Type Department Care Team (Late st Contact Info) Description 04/16/2025 4:45 PM EDT Office Visit [facility] Internal Medicine - Family Medicine [address] [place] [id number] Sascha Larsen DO [address] [place] [address] Lumbar radiculopathy (Primary Dx); Pain of right lower leg Social History Tobacco Use Types Packs/Day Years Used Date Smoking Tobacco: Former Cigarettes Passive Smoke Exposure: Past Smokeless Tobacco: Never Alcohol Use Standard Drinks/Week Comments Not Currently 0 (1 standard drink = 0.6 oz pur e alcohol) [facility] Utilities Answer Date Recorded In the past 12 months has Fliptu, gas, oil, or water Pain Doctor threatened to shut off services in your home? No 05/01/2024 Social Connection and Isolat ion Panel [NHANES] Answer Date Recorded In a typical week, how many times do you talk on the phone with family, friends, or neighbors? Once a week 04/14/2023 How often do you get togethe r with friends or relatives? Once a week 04/14/2023 How often do you attend chur or cheondoism services? More than 4 times per year 04/14/2023 Do you belong to any clubs o r organizations such as restorationism groups, unions, fraternal or athletic groups, or school groups? Yes 04/14/2023 How often do you attend meet ings of the clubs or organizations you belong to? Never 04/14/2023 Are you , , di vorced, , never , or living with a partner? 04/14/2023 AUDIT-C Answer Date Recorded Q1: How often do you have a drink containing alcohol? Never 03/28/2023 Q2: How many drinks containi ng alcohol do you have on a typical day when you are drinking? Patient does not drink Q3: How often do you have si x or more drinks on one occasion? Never 03/28/2023 Overall Financial Resource Strain (CARDIA) Answe r Date Recorded How hard is it for you to pa y for the very basics like food, housing, medical care, and heating? Not hard at all 04/14/2023 PHQ-2 Answer Date Recorded Total Score 0 04/16/2025 [facility] ional [facility] - Occupational Stress Questionnaire Answer Date Recorded Do you feel stress - tense, restless, nervous, or anxious, or unable to sleep at night because your mind is troubled all the time - these days? Not at all 04/14/2023 Exercise Vital Sign Answer Date Recorde d On average, how many days pe r week do you engage in moderate to strenuous exercise (like a brisk walk)? 0 days 05/01/2024 On average, how many minutes do you engage in exercise at this level? 0 min 05/01/2024 PRAPARE - Transportation Answer Date Re corded In the past 12 months, has l ack of transportation kept you from medical appointments or from getting medications? No 03/22 In the past 12 months, has l ack of transportation kept you from meetings, work, or from getting things needed for daily living? No 04/14/2023 Housing Instability Answer Date Recorde d Are you worried or concerned that in the next two months you may not have stable housing that you own, rent or stay in as a part of a household? No 04/14/2023 Childcare Answer Date Recorded Do problems getting child ca re make it difficult for you to work or study? No 04/14/2023 Employment Answer Date Recorded Do you need help finding a l ocal career center and/or a training program? No 04/14/2023 Hunger Screening Answer Date Recorded Within the past 12 months we worried whether our food would run out before we got money to buy more. Never True 04/16/2025 Within the past 12 months th e food we bought just didn't last and we didn't have money to get more. Never True 04/16/2025 Purpose - Life Answer Date Recorded I have a purpose and direction in my life. Stron gly Agree 04/14/2023 Sex and Gender Information Value Date Recorded Sex Assigned at Not on file Legal Sex Male 11:34 AM EDT Gender Identity Not on file Sexual Orientation Not on file documented as of this encounter Last Filed Vital Signs Vital Sign Reading Time Taken Comments Blood Pressure 126/70 04/16/2025 4:35 PM EDT Pulse 86 04/16/2025 4:35 PM EDT Temperature 36.3 C (97.4 F) 04/16/2025 4:35 PM EDT Respiratory Rate 20 04/16/2025 4:35 PM EDT Oxygen Saturation 98% 04/16/2025 4:35 PM EDT Inhaled Oxygen Concentration - - Weight 96.1 kg (211 lb 12.8 oz) 04/16/2025 4:35 PM EDT Height 170.2 cm (5' 7.01 ) 04/16/2025 4:35 PM ED T Body Mass Index 33.16 04/16/2025 4:35 PM EDT documented in this encounter Progress Notes * Sascha Larsen, DO - 04/16/2025 4:45 PM EDT Images from the original note were not included. Subjective Patient ID: Valentin Wong is a 69 y.o. male. Valentin presents for right burr pain and swelling that has been present since December when he fell down 6 stairs at home. He saw Dr. Murcia (ortho) in the office last week and was told to wear compression stockings and increase the dose of his diuretic to help decrease the swelling in his right lower leg. He states the pain is an 8/10 constantly and increases during the night to a 10/10. He describes the pain as sharp . He has tried Voltaren gel, tramadol, Tylenol, ice and heat with no relief. Last night his right leg was tingling from his knee down to his foot. He could not provide a timeframe in which the episode occurred. Dorsiflexion makes the pain worse. The swelling in his right leg is gone now but he still has the pain. He has a history of low back pain and had surgery in the past. He is currently in physical therapy but it will be finishing soon. The following portions of the patient's history were reviewed and updated as appropriate: allergies, current medications, past family history, past medical history, past social history, past surgicalhistory, problem list, and medication reconciliation was completed including current medication andpost discharge medication. Review of Systems Constitutional: Negative. HENT: Negative. Eyes: Negative. Respiratory: Positive for shortness of breath. Negative for chest tightness. Cardiovascular: Positive for leg swelling. Negative for chest pain. Gastrointestinal: Negative. Genitourinary: Negative. Musculoskeletal: Positive for arthralgias, joint swelling, myalgias, neck pain and neck stiffness. Skin: Positive for wound (bruising of right burr). Neurological: Negative. Hematological: Negative. Psychiatric/Behavioral: Negative. Objective Physical Exam Vitals reviewed. Exam conducted with a irrigation laborer present (Peter Emanuel MS 3). Constitutional: General: He is not in acute distress. Appearance: Normal appearance. He is not ill-appearing. HENT: Head: Normocephalic. Cardiovascular: Pulses: Dorsalis pedis pulses are 2+ on the right side. Posterior tibial pulses are 2+ on the right side. Musculoskeletal: General: No deformity. Right lower leg: Tenderness present. No edema. Left lower leg: No edema. Legs: Comments: Pain seems out of proportion to amount of pressure applied. It is more in the calf area. Calf circumferences area symmetric. Pulses in foot area present. No color variation. Neurological: General: No focal deficit present. Mental Status: He is alert and oriented to person, place, and time. Gait: Gait abnormal (ambulating with a walker). Psychiatric: Mood and Affect: Mood normal. Behavior: Behavior normal. Thought Content: Thought content normal. Judgment: Judgment normal. Assessment/Plan Valentin was seen today for pain in the right burr/swollen foot.tingling. Diagnoses and all orders for this visit: Lumbar radiculopathy - gabapentin (NEURONTIN) 100 mg capsule; Take 1 capsule (100 mg total) by mouth 3 (three) times a day. Etiology of pain is unclear. Possibly radicular in nature we will treat with gabapentin 100 mg 3 times a day. Does not appear to be a compartment syndrome for fracture. He has had the leg x-rayed initially after fall and then weeks after the initial injury and no underlying fracture was seen. CheckEMG if no better. There really is no swelling right now but can get compression hose with mild pressure Pain of right lower leg As above. EMG if no better documented in this encounter Plan of Treatment Upcoming Encounters Date Type Department Care Team (Late st Contact Info) Description 05/07/2025 9:40 AM EDT Office Visit [facility] Internal Medicine - Family Medicine [address] [place] [address] documented as of this encounter Visit Diagnoses Diagnosis Lumbar radiculopathy- Primary Thoracic or lumbosacral neuritis or radiculitis, unspecified Pain of right lower leg documented in this encounter Additional Health Concerns Assessment Noted Time PHQ-9 Depression Total Score: 0 04/16/20 25 4:31 PM EDT documented as of this encounter Care Teams Surveyor Helper Relationship Specialty Start Date End Date Sascha Larsen DO [address] [place] [address] PCP - General Family Medicine 09/23/22 documented as of this encounter
--- OUTSIDE RECORDS SUMMARY | 2025-04-19 11:04 | XMS_ITS | Continuity of Care Document ---
Author Organization [facility] Address [address] [place] [address] Phone Care Team Providers Care Community Relations Specialist Name Role Phone Sascha Larsen DO Primary Care Provider Jaime Murcia II, MD Attending Provider Sascha Larsen DO Attending Provider [phone] Martha Gomes MD Emergency Provider Marley Dumont MD Admit Provider [phone] Gabi Almanzar MD Attending Provider [phone] Rita Matt MD Other Provider Romel Davis MD Attending Provider Care Teams Patient Care Team Team Status: Active Member Role Status Dates Sascha Larsen DO Primary Care Provider Active Visit Care Team Team Status: Inactive Member Role Status Dates Sascha Larsen DO Primary Care Provider Active Start: January 24, 2025 End: January 24, 2025 Jaime Murcia II, MD Attending Provider Active Start: January 24, 2025 End: January 24, 2025 Visit Care Team Team Status: Inactive Member Role Status Dates Sascha Larsen DO Primary Care Provide r, Attending Provider Active Start: January 25, 2025 End: January 25, 2025 Visit Care Team Team Status: Inactive Member Role Status Dates Sascha Larsen DO Primary Care Provider Active Start: February 08, 2025 End: February 08, 2025 Jaime Murcia II, MD Attending Provider Active Start: February 08, 2025 End: February 08, 2025 Visit Care Team Team Status: Inactive Member Role Status Dates Sascha Larsen DO Primary Care Provider Active Start: February 15, 2025 End: February 16, 2025 Martha Gomes MD Emergency Provider Active Start: February 15, 2025 End: February 16, 2025 Marley Dumont MD Admit Provider Active Sta rt: February 15, 2025 End: February 16, 2025 Gabi Almanzar MD Attending Provider Active Star t: February 15, 2025 End: February 16, 2025 Rita Matt MD Other Provider Active Start: February 15, 2025 End: February 16, 2025 Visit Care Team Team Status: Inactive Member Role Status Dates Sascha Larsen DO Primary Care Provider Active Start: February 21, 2025 End: February 21, 2025 Edenilson Mcleod MD Attending Provider Active Sta rt: February 21, 2025 End: February 21, 2025 Visit Care Team Team Status: Active Member Role Status Dates Sascha Larsen DO Primary Care Provider Active Start: March 13, 2025 Edenilson Mcleod MD Attending Provider Active Sta rt: March 13, 2025 Visit Care Team Team Status: Inactive Member Role Status Dates Sascha Larsen DO Primary Care Provider Active Start: March 27, 2025 End: March 27, 2025 Edenilson Mcleod MD Attending Provider Active Sta rt: March 27, 2025 End: March 27, 2025 Visit Care Team Team Status: Inactive Member Role Status Dates Sascha Larsen DO Primary Care Provider Active Start: April 10, 2025 End: April 10, 2025 Jaime Murcia II, MD Attending Provider Active Start: April 10, 2025 End: April 10, 2025 Visit Care Team Team Status: Inactive Member Role Status Dates Sascha Larsen DO Primary Care Provider Active Start: April 10, 2025 End: April 10, 2025 Jaime Murcia II, MD Attending Provider Active Start: April 10, 2025 End: April 10, 2025 Visit Care Team Team Status: Active Member Role Status Dates Sascha Larsen DO Primary Care Provider Active Start: April 18, 2025 Jaime Murcia II, MD Attending Provider Active Start: April 18, 2025 Patient Care Team Team Status: Inactive Member Role Status Dates Sascha Larsen DO Primary Care Provider Active Start: April 18, 2025 End: April 18, 2025 Romel Davis MD Attending Provider Active St art: April 18, 2025 End: April 18, 2025 Chief Complaint and Reason for Visit Chief Complaint Admit Date Bursitis R hip January 24, 2025 8:15 am S80.811D January 25, 2025 2:00 pm 3 MONTHS February 08, 2025 9:0 0am chest pain February 15, 2025 11: 58am RECHECK February 21, 2025 7:52 am F.U MARÍA LUMBAR RFA March 27, 2025 7:47am M76.31 - Iliotibial band syndrome, right leg April 10, 2025 8:56am 2 MONTHS April 10, 2025 9:30a m R bursitis of right hip April 18, 2025 8 :00am soof April 18, 2025 9:08a m Reason for Visit Admit Date Greater trochanteric bursitis of right h ip February 08, 2025 9:00am Iliotibial band syndrome, right leg Sourav h 2024 9:00am Primary osteoarthritis of right hip Sourav h 2024 9:00am Dyslipidemia February 15, 2025 11: 58am Essential hypertension February 15, 2025 11:58am Frequent PVCs February 15, 2025 11: 58am Rheumatoid arthritis February 15, 2025 11 :58am Atypical chest pain February 15, 2025 11: 58am Arthritis of facet joint of cervical spi ne February 21, 2025 7:52am Arthritis of lumbosacral spine February 7:52am Chronic pain February 21, 2025 7:52 am Osteoarthritis of right hip February 21, 7:52am Arthritis of facet joint of cervical spi ne March 27, 2025 7:47am Arthritis of lumbosacral spine March 27, 2025 7:47am Chronic pain March 27, 2025 7:47am Osteoarthritis of right hip March 27 7:47am Greater trochanteric bursitis of right h ip April 10, 2025 9:30am Iliotibial band syndrome, right leg April 10, 2025 9:30am Lymphedema of both lower extremities April 10, 2025 9:30am Primary osteoarthritis of right hip April 10, 2025 9:30am Primary osteoarthritis of right knee April 10, 2025 9:30am Health Concerns Concerns A [facility] screening has identified you as FRAIL or AT RISK FOR FRAILTY. This puts you at a higher risk for infection, illness, falls, and other injuries. Here are four ways to help you reduce your risk of frailty: 1. IDENTIFY EARLY SIGNS OF FRAILTY Discuss contributing factors and concerns with your doctor 2. BE ACTIVE Walking and light strengthening exercises will help reduce weakness 3. EAT WELL Aim for three healthy meals a day that are high in protein 4. THINK POSITIVE Keep your mind active by being sociable and continuing to learn References: Stay Strong: Four Ways to Beat the Frailty Risk [email or web address] ilty-[email or web address] Allergies, Adverse Reactions, Alerts Allergen Type Severity Reaction Last Updated Verified Status Comments cephalexin Allergy Unknown Unknown Reaction April 10, 2025 9:48am Yes Active Cephalosporins Allergy Unknown Unknown Reaction April 10, 2025 9:48am Yes Active Sulfa (Sulfonamide Antibiotics) Allergy Unknown Rash April 10, 2025 9:48am Yes Active calcium carbonate Adverse Reaction Unknown Nausea April 10, 2025 9:48am Yes Active Is able to take aspirin magnesium Adverse Reaction Unknown Nausea April 10, 2025 9:48am Yes Active Is able to take aspirin oxycodone Adverse Reaction Unknown Hallucinating April 10, 2025 9:48am Yes Active Social History Smoking Status Status Start Date End Date Date of Observa tion Ex-smoker (finding) February 162024 1:26pm Observation Status Observation Response Date of Response Patient Sex Male April 19, 2025 1 2:07am Assigned Sex Male April 20 7 Family History Relationship Condition Age at Onset Recorded Date/T juliane father Myocardial infarction Unknown Hypertension Unknown mother Myocardial infarction Unknown Hypertension Unknown brother Bipolar disorder Unknown Hypertension Unknown brother Diabetes mellitus Unknown Hypertension Unknown Problems Active Problems Medical Problem Onset Date Status ONIEL (acute kidney injury) Active Rheumatoid arthritis Active Arthritis of facet joint of cervical spine Active History of radiofrequency ablation (RFA) of nerv e of lumbar spine Active Primary osteoarthritis of right knee Active Greater trochanteric bursitis of right hip Active Primary osteoarthritis of right hip Active Iliotibial band syndrome, right leg Active Lumbar radiculopathy Active Shortness of breath Active Chronic pain Active Frequent PVCs Active Stenosis, cervical spine Active Osteoarthritis of right hip Acti ve Dyslipidemia Active Piriformis syndrome Active Instability of right hip joint A ctive Cough Active 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 Active Dysphagia Active Thyroid mass of unclear etiology Active Lymphedema Active Calculus of distal left ureter A ctive Lymphedema of both lower extremities Active Spondylolisthesis at L4-L5 level Active Essential hypertension Active Tremor of right hand Active Intention tremor Active Chronic neck pain Active Right hip pain Active Renal colic on left side Active Renal colic on left side Active Fall Active Arthritis of lumbosacral spine A ctive Lumbosacral stenosis with neurogenic claudicatio n Active Inactive/Resolved Problems Medical Problem Onset Date Status Effusion of knee joint right Res olved Lower back pain Resolved Leukocytosis Resolved Atypical chest pain Resolved Atypical chest pain Resolved Right distal ureteral calculus R esolved Renal colic on right side Resolv ed Fall Resolved Medications Medication Status Dose Units Route Directions Qty Days St art Date Stop Date End Date Instructions Hydrocodone- Acetaminophe n 5-325 mg tablet Discont inued 1 - 2 TAB PO Every 6 hours as needed for pain 30 7 April 10, 2024 Febru 2024 12:57 pm Meloxicam 15 mg tablet Discont inued 0 .ROUTE .COMPLEX 2024 12:30p m Febru eduarda 2024 9:01a m TAKE 1 TABLET BY MOUTH DAILY Meloxicam 15 mg tablet Discont inued 0 .ROUTE .COMPLEX 2024 9:01am February 19, 2025 3:48p m TAKE 1 TABLET BY MOUTH DAILY Meloxicam 15 mg tablet Discont inued 0 .ROUTE .COMPLEX February 19, 2025 3:48pm March 18, 2025 3:04p m TAKE 1 TABLET BY MOUTH DAILY Meloxicam 15 mg tablet Discont inued 0 .ROUTE .COMPLEX March 18, 2025 3:04pm April 10, 2025 10:03 am TAKE 1 TABLET BY MOUTH DAILY Hydrocodone- Acetaminophe n ([place]) 5-325 mg tablet Discont inued 1 TAB PO EVERY 4-6 HOURS as needed for Pain July 10, 2018 [facility] 2017 1:25p m Doxycycline Hyclate 100 mg tablet Discont inued 100 MG PO Twice daily 08 25July 10, 2018 12:00a m [facility] 2017 1:17p m Cyclobenzapr ine 10 mg Tablet Discont inued 10 MG PO Three times daily as needed for Pain May 12, 2019 12:00a m [facility] 2018 8:09a m Lisinopril-H ydrochloroth iazide 20-12.5 mg Tablet Active 1 TAB PO Every morning May 12, 2019 12:00a m Hydrocodone- Acetaminophe n ([place]) 5-325 mg tablet Discont inued 1 TAB PO Daily at bedtime as needed for pain 14 14 May 12, 2019 [facility] 2018 10:35 am Hydrocodone- Acetaminophe n 5-325 mg tablet Discont inued 1 - 2 TAB PO Q6H as needed for pain 15 3 May 03, 20232023 4:25a m Tamsulosin (Flomax) 0.4 mg capsule Discont inued 0.4 MG PO Daily May 03, 2023 12:00a m [facility] 2023 4:25a m administer 30 minutes after same meal each day until stone passes Ondansetron 4 mg tablet,disin tegrating Discont inued 4 MG PO Q8H as needed for nausea and vomiting May 03, 2023 12:00a m [facility] 2023 4:25a m Hydrocodone- Acetaminophe n 5-325 mg tablet Discont inued 1 - 2 TAB PO Q6H as needed for pain 15 3 2023March 29, 2024 11:09 am Tamsulosin (Flomax) 0.4 mg capsule Discont inued 0.4 MG PO Daily 4 4:25am April 02, 2024 2:36p m administer 30 minutes after same meal each day until stone passes Ondansetron 4 mg tablet,disin tegrating Discont inued 4 MG PO Q8H as needed for nausea and vomiting 10 2023 4:25am March 29, 2024 11:10 am Levofloxacin 500 mg tablet Discont inued 500 MG PO Daily 5 5 2023 1:00am March 29, 2024 11:11 am Colchicine 0.6 mg tablet Discont inued 0.6 MG PO Every morning April 02, 2024 12:00a m [facility] 2023 10:04 am Potassium Bicarb-Citri c Acid (Klor-Con/Ef ) 25 mEq tablet, effervescent Active 25 MEQ PO Twice daily April 02, 2024 12:00a m Tamsulosin (Flomax) 0.4 mg capsule Active 0.4 MG PO Every evening April 02, 2024 12:00a m administer 30 minutes after same meal each day until stone passes Prednisolone Acetate (Pred Forte) 1 % drops,suspen cruz Active 1 DROPS EYE-RI GHT Three times daily as needed for iritis April 02, 2024 12:00a m Methylpredni solone (Medrol (Nicolas)) 4 mg tablets,dose pack Discont inued 4 MG PO As Directed as needed for arthritis flare April 02, 2024 12:00a m May 02, 2024 9:54a m Aspirin (Adult Low Dose Aspirin) 81 mg tablet,delay ed release (DR/EC) Active 81 MG PO Daily April 02, 2024 12:00a m Hydrocodone- Acetaminophe n 5-325 mg tablet Discont inued 1 - 2 TAB PO Q6H as needed for pain 30 April 09, 2024 May 28, 2024 8:58a m Ciprofloxaci n Hcl (Cipro) 500 mg tablet Discont inued 500 MG PO Q12H April 09, 2024 12:00a m May 02, 2024 9:53a m administer dose at least 2 hrs before/6 hrs after dairy products, calcium, zinc, and/or iron-containi ng products Nabumetone 750 mg tablet Discont inued 750 MG PO Twice daily April 25, 2018 12:00a m [facility] 2023 10:04 am Hydrocodone- Acetaminophe n ([place]) 5-325 mg Tablet Discont inued 1 TAB PO EVERY 4-6 HOURS as needed for Pain April 25, 2018 12:00a m [facility] 2017 1:25p m Lisinopril 20 mg tablet Discont inued 20 MG PO Daily April 25, 2018 12:00a m May 12, 2019 2:29a m Simvastatin 10 mg tablet Discont inued 10 MG PO Daily April 25, 2018 12:00a m [facility] 2018 10:31 am Leflunomide 10 mg tablet Active 10 MG PO Every morning April 25, 2018 12:00a m Tamsulosin (Flomax) 0.4 mg Capsule,Exte nded Release 24hr Discont inued 0.4 MG PO Daily April 25, 2018 12:00a m [facility] 2017 1:21p m Omeprazole 20 mg capsule,dexter yed release(DR/E C) Discont inued 40 MG PO Every morning April 25, 2018 12:00a m February 16, 2025 3:00p m Leucovorin Calcium 5 mg tablet Active 5 MG PO every week April 25, 2018 12:00a m taken on sundays Folic Acid 1 mg tablet Active 1 MG PO Twice daily April 25, 2018 12:00a m Montelukast 10 mg tablet Active 10 MG PO Every evening April 25, 2018 12:00a m Hydroxychlor oquine 200 mg tablet Active 200 MG PO Twice daily April 25, 2018 12:00a m Ondansetron (Zofran Odt) 4 mg Tablet,Disin tegrating Discont inued 4 MG PO EVERY 8-12 HOURS as needed for Nausea And Vomiting April 25, 2018 12:00a m [facility] 2017 1:20p m Hydrocodone- Acetaminophe n ([place]) 5-325 mg tablet Discont inued 1 - 2 TAB PO EVERY 4-6 HOURS as needed for Pain May 16, 2018 [facility] 2017 1:25p m Doxycycline Hyclate 100 mg tablet Discont inued 100 MG PO Twice daily 14 7 May 16, 2018 12:00a m [facility] 1:18p m Hydromorphon e (Dilaudid) 4 mg tablet Discont inued 4 MG PO Q6H as needed for pain April 29, 2018 [facility] 2017 1:25p m Methotrexate Sodium 25 mg/mL solution Active 25 MG SUBCUT every week [facility] 2017 1:00am taken on saturdays Aspirin (Aspir-81) 81 mg Tablet,Delay ed Release (Dr/Ec) Discont inued 325 MG PO Daily [facility] 2017 1:00am [facility] 2017 1:25p m Tramadol 50 mg tablet Discont inued 100 MG PO Q8H as needed for Pain [facility] 2017 1:00am [facility] 2018 8:09a m Prednisolone Acetate 1 % drops,suspen cruz Discont inued 1 DROPS OPHTHA LMIC As Directed as needed for Iritis [facility] 2017 1:00am [facility] 2018 3:25p m taper as directed/ Right Eye Acetaminophe n 500 mg Capsule Discont inued 500 MG PO Three times daily [facility] 2017 1:00am [facility] 2018 3:26p m Methylpredni solone (Medrol (Nicolas)) 4 mg tablets,dose pack Discont inued 1 dose pk PO per package directions 21 [facility] 2017 1:00am [facility] 2018 10:35 am Aspirin 325 mg Tablet Discont inued 325 MG PO Every morning July 19, 2019 12:00a m April 04, 2023 1:11p m Simvastatin 20 mg Tablet Active 20 MG PO Every evening July 19, 2019 12:00a m Fluticasone Propionate 93 mcg/actuatio n Aerosol Breath Activated Discont inued 1 SPRAY INTRAN ELAINA Daily July 19, 2019 12:00a m March 31, 2023 8:40a m Left nostril only Methylpredni solone (Medrol (Nicolas)) 4 mg tablets,dose pack Discont inued 1 dose pk PO per package directions as needed for UCTD July 19, 2019 10:35a m [facility] 2018 3:25p m Diazepam 5 mg Tablet Discont inued 5 MG PO Four times daily as needed for Muscle Spasm 30 10 2018 12:00a m March 31, 2023 8:41a m Tramadol 50 mg tablet Active 100 MG PO Q8H as needed for Pain 0 2018 7:13am Acetaminophe n 500 mg Tablet Active 1000 MG PO 2-3 TIMES PER DAY as needed for Pain March 31, 2023 12:00a m Triamcinolon e Acetonide (Nasal Allergy) 55 mcg Aerosol,Spra y Active 1 SPRAY INTRAN ELAINA Daily March 31, 2023 12:00a m Nitroglyceri n 0.4 mg tablet, sublingual Discont inued 0.4 MG SUBLIN GUAL Daily as needed for Chest Pain March 31, 2023 12:00a m Febru eduarda 2024 12:56 pm Carboxymethy lcellulose Sodium (Refresh Liquigel) 1 % Drops, Liquid Gel Active 1 DROPS EYE-LALO TH Daily as needed for dry eye(s) March 31, 2023 12:00a m Fexofenadine -Pseudoephed rine (Seema-D 24 Hour) 180-240 mg Tablet Extended Release 24 Hr Active 1 TAB PO Daily as needed for allergies March 31, 2023 12:00a m Acetaminophe n (Tylenol Extra Strength) 500 mg tablet Discont inued 1000 MG PO Every 6 hours as needed for fever or pain 2024 1:00am February 16, 2025 3:00p m Lidocaine (Lidoderm) 5 % adhesive patch,medica nat Active 2 PATCH TOPICA L Q24H 2024 1:00am leave on most painful area for up to 12 hrs Diclofenac Sodium (Voltaren Arthritis Pain) 1 % gel Active 2 GM TOPICA L Four times daily 2024 1:00am apply to single elbow, wrist or hand; for hand includes palm/fingers/ back of hand Omeprazole 40 mg capsule,dexter yed release(DR/E C) Active 40 MG PO Twice daily February 15, 2025 12:00a m FreeTextSi capsule Orally bid; Note: Source Status: Taking; Provider: Anson Bravo ( ) Methotrexate Sodium (Pf) 50 mg recon soln Discont inued 50 MG .Route .weekly February 15, 2025 12:00a m February 16, 2025 3:00p m Naproxen 250 mg tablet Active 250 MG PO Twice daily as needed for pain 7 3 February 16, 2025 12:00a m Meloxicam 15 mg tablet Discont inued 15 MG PO daily 30 Octobe r 2023 12:00a m Janua ry 2024 12:30 pm Benzonatate 200 mg capsule Discont inued 200 MG PO Three times daily as needed for cough 10 4 Octobe r 2023 12:00a m Febru eduarda 2024 12:57 pm Biotin 10 mg tablet Discont inued 10 MG PO Daily Decemb er 2023 1:00am Febru eduarda 2024 12:57 pm Methylpredni solone (Medrol (Nicolas)) 4 mg tablets,dose pack Discont inued 0 PO per package directions as needed for pain 2024 1:00am March 27, 2025 8:17a m orally per package directions PRN; PO PER PKG DIR Primidone 50 mg tablet Active 100 MG PO Daily at bedtime 2024 1:00am Meloxicam 15 mg tablet Active 15 MG PO Daily 90 90 April 10, 2025 10:01a m 15 mg orally daily; Immunizations Immunization Event Date Not Given Reason Dose Number [employer] Lot Number Vaccine Information Statement (VIS) Detail COVID-19 Ad26.COV2.S ([employer]) January 26, 2021 COVID-19 Ad26.COV2.S ([employer]) September 23, 2021 COVID-19 (MODERNA) 12Y and older March 06, 2024 COVID-19 mRNA Bivalent Booster (Pfizer) October 08, 2022 COVID-19 (PFIZER) 12Y and older August 23, 2023 Medical Equipment Device Date Implanted Device Details CAGE [id number] CAPSTONE July 24, 2019 CANCELLOUS COARSE 7.5CC July 24, 2019 INFUSE XX SMALL 0.7CC July 24, 2019 ARASH S4 CVD 5.5X45MM AESCULAP July 24, 2019 ARASH S4 CVD 5.5X50MM AESCULAP July 24, 2019 SCREW S4 6X40MM MONO AESCULAP July 24 SCREW S4 6X40MM MONO AESCULAP July 24 SCREW S4 6X45MM POLY AESCULAP July 24 SCREW S4 6X45MM POLY AESCULAP July 24 SCREW SET S4 AESCULAP July 24, 2019 SCREW SET S4 AESCULAP July 24, 2019 SCREW SET S4 AESCULAP July 24, 2019 SCREW SET S4 AESCULAP July 24, 2019 Procedures Procedure Date Performed Status XR knee RT 4V* April 10, 2025 8:56am completed XR ankle RT min 3V* January 25, 2025 3:11pm compl eted XR chest 1V portable February 15, 2025 10:03am co mpleted Relevant Diagnostic Tests and/or Laboratory Data Laboratory Results Test Date/Time Result Interpretation Reference Range Result Comment Performing Site Corrected White Blood Count February 16, 2025 6:06am 9.1 10*3/uL 4.1-10.5 [facility] [id number] [address] [id number] Corrected White Blood Count April 18, 2025 9:08am 5.5 10*3/uL 4.1-10.5 [facility] [id number] [address] [id number] Uncorrected WBC Count February 16, 2025 6:06am 9.1 10*3/uL 4.1-10.5 [facility] [id number] [address] [facility] [address] Uncorrected WBC Count April 18, 2025 9:08am 5.5 10*3/uL 4.1-10.5 [facility] [id number] [address] [id number] Red Blood Count February 16, 2025 6:06am 5.08 10*6/uL 3.90-5.60 [facility] [id number] [address] [place], [place] [id number] Red Blood Count April 18, 2025 9:08am 5.01 10*6/uL 3.90-5.60 [facility] [id number] [address] [id number] Hemoglobin February 16, 2025 6:06am 16.0 g/dL 13.0-17.0 [facility] [id number] [address] [place] [address] Hemoglobin April 18, 2025 9:08am 15.8 g/dL 13.0-17.0 [facility] [id number] [address] [place] [address] Hematocrit February 16, 2025 6:06am 46.5 % 38.8-50.0 [facility] [id number] [address] [place] [address] Hematocrit April 18, 2025 9:08am 45.5 % 38.8-50.0 [facility] [id number] [address] [place] [address] Mean Corpuscular Volume February 16, 2025 6:06am 91.6 fL 83.5-101 [facility] [id number] [address] [place] [address] Mean Corpuscular Volume April 18, 2025 9:08am 90.9 fL 83.5-101 [facility] [id number] [address] [place] [address] Mean Corpuscular Hemoglobin February 16, 2025 6:06am 31.5 pg 27.5-35.2 [facility] [id number] [address] [place] [address] Mean Corpuscular Hemoglobin April 18, 2025 9:08am 31.6 pg 27.5-35.2 [facility] [id number] [address] [place] [address] Mean Corpuscular Hemoglobin Concent February 16, 2025 6:06am 34.4 g/dL 32.5-35.6 [facility] [id number] [address] [place] [address] Mean Corpuscular Hemoglobin Concent April 18, 2025 9:08am 34.8 g/dL 32.5-35.6 [facility] [id number] [address] [place] [address] Red Cell Distribution Width February 16, 2025 6:06am 15.4 % Above high normal 12.0-14.8 [facility] [id number] [address] [place] [address] Red Cell Distribution Width April 18, 2025 9:08am 14.9 % Above high normal 12.0-14.8 [facility] [id number] [address] [facility] [address] Platelet Count February 16, 2025 6:06am 166 10*3/uL 150-450 [facility] [id number] [address] [facility] [address] Platelet Count April 18, 2025 9:08am 207 10*3/uL 150-450 [facility] [id number] [address] [facility] [address] Mean Platelet Volume February 16, 2025 6:06am 8.0 fL 6.6-10.1 [facility] [id number] [address] [facility] [address] Mean Platelet Volume April 18, 2025 9:08am 8.3 fL 6.6-10.1 [facility] [id number] [address] [facility] [address] Monocyte Distribution Width February 15, 2025 10:00am 17.25 % 0.00-20.00 [facility] [id number] [address] [facility] [address] Neutrophils (%) (Auto) February 16, 2025 6:06am 78.4 % . [facility] [id number] [address] [facility] [address] Neutrophils (%) (Auto) April 18, 2025 9:08am N/A [facility] [id number] [address] [facility] [address] Lymphocytes (%) (Auto) February 16, 2025 6:06am 11.0 % . [facility] [id number] [address] [facility] [address] Lymphocytes (%) (Auto) April 18, 2025 9:08am N/A [facility] [id number] [address] [facility] [address] Monocytes (%) (Auto) February 16, 2025 6:06am 9.6 % . [facility] [id number] [address] [facility] [address] Monocytes (%) (Auto) April 18, 2025 9:08am N/A [facility] [id number] [address] [facility] [address] Eosinophils (%) (Auto) February 16, 2025 6:06am 0.7 % . [facility] [id number] [address] [facility] [address] Eosinophils (%) (Auto) April 18, 2025 9:08am N/A [facility] [id number] [address] [facility] [address] Basophils (%) (Auto) February 16, 2025 6:06am 0.3 % . [facility] [id number] [address] [facility] [address] Basophils (%) (Auto) April 18, 2025 9:08am N/A [facility] [id number] [address] [facility] [address] Nucleated RBC Relative Count (auto) February 16, 2025 6:06am 0.1 /100{WBC} 0-0.5 [facility] [id number] [address] [facility] [address] Nucleated RBC Relative Count (auto) April 18, 2025 9:08am N/A [facility] [id number] [address] [facility] [address] Neutrophils # (Auto) February 16, 2025 6:06am 7.1 10*3/uL 1.8-7.7 [facility] [id number] [address] [facility] [address] Neutrophils # (Auto) April 18, 2025 9:08am N/A [facility] [id number] [address] [facility] [address] Lymphocytes # (Auto) February 16, 2025 6:06am 1.0 10*3/uL 1.00-4.8 [facility] [id number] [address] [place] [id number] Lymphocytes # (Auto) April 18, 2025 9:08am N/A [facility] [id number] [address] [place] [id number] Monocytes # (Auto) February 16, 2025 6:06am 0.9 10*3/uL Above high normal 0.0-0.8 [facility] [id number] [address] [place] [id number] Monocytes # (Auto) April 18, 2025 9:08am N/A [facility] [id number] [address] [facility] [address] Eosinophils # (Auto) February 16, 2025 6:06am 0.1 10*3/uL 0.0-0.45 [facility] [id number] [address] [facility] [address] Eosinophils # (Auto) April 18, 2025 9:08am N/A [facility] [id number] [address] [facility] [address] Basophils # (Auto) February 16, 2025 6:06am 0.0 10*3/uL 0.0-0.2 [facility] [id number] [address] [facility] [address] Basophils # (Auto) April 18, 2025 9:08am N/A [facility] [id number] [address] [facility] [address] Segmented Neutrophils April 18, 2025 9:08am 69 % 50-70 [facility] [id number] [address] [facility] [address] Lymphocytes % April 18, 2025 9:08am 8 % Below low normal 18-42 [facility] [id number] [address] [facility] [address] Monocytes % April 18, 2025 9:08am 19 % Above high normal 2-11 [facility] [id number] [address] [facility] [address] Eosinophils % April 18, 2025 9:08am 0 % Below low normal 1-3 [facility] [id number] [address] [facility] [address] Basophils % April 18, 2025 9:08am 0 % 0-2 [facility] [id number] [address] [facility] [address] Metamyelocytes % April 18, 2025 9:08am 1 % Above high normal 0-0 [facility] [id number] [address] [facility] [address] Myelocytes % April 18, 2025 9:08am 3 % Above high normal 0-0 [facility] [id number] [address] [facility] [address] Red Blood Cell Morphology April 18, 2025 9:08am Normal Normal [facility] [id number] [address] [facility] [address] Platelet Estimate April 18, 2025 9:08am Normal Normal [facility] [id number] [address] [facility] [address] Platelet Morphology Comment April 18, 2025 9:08am Normal Normal [facility] [id number] [address] [facility] [address] Erythrocyte Sedimentation Rate April 18, 2025 9:08am 4 mm/hr 0-19 [facility] [id number] [address] [facility] [address] Prothrombin Time February 15, 2025 10:00am 12.0 s 9.0-12.9 A hematocrit value greater than 55% may lead to inaccurate results in coagulation testing. Patients having hematocrit values >55% require a special collection tube for coagulation studies. Please contact the laboratory at [phone] for redraw instructions. [facility] [id number] [address] [facility] [address] Prothromb Time International Ratio February 15, 2025 10:00am 1.1 INR Therapeutic Range A) Pre- and Peroperative OAT started two weeks before surgery. NOT HIP SURGERY: 1.5 - 2.5 HIP SURGERY: 2 - 3B) Primary and secondary prevention of venous THROMBOSIS: 2 - 3C) Active venous thrombosis, pulmonary embolismand prevention of recurrent venous thrombosis: 2 - 3D) Prevention of arterial thromboembolismi ncluding patients with mechanical heart valves: 3 - 4.5 [facility] [id number] [address] [facility] [address] D-Dimer Quantitative (PE/DVT) February 15, 2025 10:00am 200 ng/mL 0-243 The reference range for D-dimer is <243 ng/mL D-dimer units.D-dimer results must be used in conjunction with a clinicalpretest probability (PTP) assessment model for deep veinthrombosis (DVT) and pulmonary embolism (PE). Results <230ng/mL d-dimer units can be used as a negative predictor inpatients with low or moderate probability for DVT/PE.Results above the exclusion threshold of 230 ng/ml D-dimerunits for DVT/PE may indicate the need for furtherdiagnosti c testing.D-Dimer can be increased in hospitalized patients due toco-morbid conditions.A hematocrit value greater than 55% may lead to inaccurate results in coagulation testing. Patients having hematocrit values >55% require a special collection tube for coagulation studies. Please contact the laboratory at [phone] for redraw instructions. [facility] [id number] [address] [facility] [address] Urine Color April 18, 2025 9:08am Yellow Yellow [facility] [id number] [address] [facility] [address] Urine Appearance April 18, 2025 9:08am Clear Clear [facility] [id number] [address] [facility] [address] Urine Specific [place] April 18, 2025 9:08am 1.027 1.001-1.03 0 [facility] [id number] [address] [facility] [address] Urine pH April 18, 2025 9:08am 6.0 5.0-9.0 [facility] [id number] [address] [facility] [address] Urine Leukocyte Esterase April 18, 2025 9:08am Negative Negative [facility] [id number] [address] [facility] 8[address] Urine Nitrite April 18, 2025 9:08am Negative Negative [facility] [id number] [address] [facility] [address] Urine Protein April 18, 2025 9:08am 50 mg/dL Above high normal Negative [facility] [id number] [address] [facility] [address] Urine Glucose (UA) April 18, 2025 9:08am Normal mg/dL Normal [facility] [id number] [address] [facility] [address] Urine Ketones April 18, 2025 9:08am Negative Negative [facility] [id number] [address] [facility] [address] Urine Urobilinogen April 18, 2025 9:08am Normal mg/dL Normal [facility] [id number] [address] [facility] 134[address] Urine Bilirubin April 18, 2025 9:08am Negative Negative [facility] [id number] [address] [facility] [address] Urine Occult Blood April 18, 2025 9:08am Negative Negative [facility] [id number] [address] [facility] [address] Urine RBC April 18, 2025 9:08am 1-2 [HPF] 0-4 [facility] [id number] [address] [facility] [address]756 Urine WBC April 18, 2025 9:08am 1-2 [HPF] 0-4 [facility] [id number] [address] [facility] 8[address] Urine Squamous Epithelial Cells April 18, 2025 9:08am N/A [facility] [id number] [address] [place] [id number] Urine Bacteria April 18, 2025 9:08am Rare [HPF] None Seen [facility] [id number] [address] [place] [id number] Urine Hyaline Casts April 18, 2025 9:08am 0-8 [LPF] 0-8 [facility] [id number] [address] [place], [place] [address] Urine Mucus April 18, 2025 9:08am 4+ [LPF] Abnormal (applies to non-numeric results) [facility] [id number] [address] [place] [id number] Glucose Level February 16, 2025 6:06am 85 mg/dL 70-100 ADA recommended reference rangeRandom Glucose Reference Range is dependent on time and content of last meal. Glucose of more than 200 mg/dL in a nonstressed, ambulatory subject supports the diagnosis of Diabetes Mellitus. [facility] [id number] [address] [facility] [address] Glucose Level April 18, 2025 9:08am 110 mg/dL Above high normal 70-100 ADA recommended reference rangeRandom Glucose Reference Range is dependent on time and content of last meal. Glucose of more than 200 mg/dL in a nonstressed, ambulatory subject supports the diagnosis of Diabetes Mellitus. [facility] [id number] [address] [facility] [address] Blood Urea Nitrogen February 16, 2025 6:06am 21 mg/dL 06-14 [facility] [id number] [address] [place] [id number] Blood Urea Nitrogen April 18, 2025 9:08am 22 mg/dL 06-14 [facility] [id number] [address] [place] [id number] Creatinine February 16, 2025 6:06am 0.74 mg/dL 0.70-1.30 [facility] [id number] [address] [facility] [address] Creatinine April 18, 2025 9:08am 0.90 mg/dL 0.70-1.30 [facility] [id number] [address] [facility] [address] Estimated GFR (CKD-EPI) February 16, 2025 6:06am > 60.0 mL/Min [facility] [id number] [address] [place] [address] Estimated GFR (CKD-EPI) April 18, 2025 9:08am > 60.0 mL/Min [facility] [id number] [address] [facility] [address] Sodium Level February 16, 2025 6:06am 135 mmol/L Below low normal 136-145 [facility] [id number] [address] [facility] [address] Sodium Level April 18, 2025 9:08am 137 mmol/L 136-145 [facility] [id number] [address] [facility] [address]649 Potassium Level February 16, 2025 6:06am 4.4 mmol/L 3.5-5.1 [facility] [id number] [address] [facility] [address] Potassium Level April 18, 2025 9:08am 4.3 mmol/L 3.5-5.1 [facility] [id number] [address] [facility] [address] Chloride Level February 16, 2025 6:06am 106 mmol/L 98-107 [facility] [id number] [address] [facility] [address]642 Chloride Level April 18, 2025 9:08am 105 mmol/L 98-107 [facility] [id number] [address] [facility] 51085 Carbon Dioxide Level February 16, 2025 6:06am 20.6 mmol/L Below low normal 21.0-31.0 [facility] [id number] [address] [facility] [address] Carbon Dioxide Level April 18, 2025 9:08am 23.0 mmol/L 21.0-31.0 [facility] [id number] [address] [facility] [address] Anion Gap February 16, 2025 6:06am 12.8 mEq/L 6.0-15.0 [facility] [id number] [address] [facility] [address]276 Anion Gap April 18, 2025 9:08am 13.3 mEq/L 6.0-15.0 [facility] [id number] [address] [facility] [address] Calcium Level February 16, 2025 6:06am 8.7 mg/dL 8.6-10.3 [facility] [id number] [address] [facility] [address]141 Calcium Level April 18, 2025 9:08am 8.7 mg/dL 8.6-10.3 [facility] [id number] [address] [facility] [address] Total Protein February 16, 2025 6:06am 6.3 g/dL Below low normal 6.4-8.9 [facility] [id number] [address] [facility] 28017 Total Protein April 18, 2025 9:08am 6.1 g/dL Below low normal 6.4-8.9 [facility] [id number] [address] [facility] [address] Albumin February 16, 2025 6:06am 4.1 g/dL 3.5-5.7 [facility] [id number] [address] [facility] 83068 Albumin April 18, 2025 9:08am 4.1 g/dL 3.5-5.7 [facility] [id number] [address] [facility] [address]284 Globulin February 16, 2025 6:06am 2.2 g/dL [facility] [id number] [address] [facility] 84189 Globulin April 18, 2025 9:08am 2.0 g/dL [facility] [id number] [address] [facility] [address] Albumin/Globul in Ratio February 16, 2025 6:06am 1.9 [facility] [id number] [address] [facility] 6[address] Albumin/Globul in Ratio April 18, 2025 9:08am 2.1 [facility] [id number] [address] [place] [address]98 Total Bilirubin February 16, 2025 6:06am 0.8 mg/dL 0.3-1.0 [facility] [id number] [address] [place] [address]747 Total Bilirubin April 18, 2025 9:08am 0.4 mg/dL 0.3-1.0 [facility] [id number] [address] [place] [address] 12388 Aspartate Amino Transf (AST/SGOT) February 16, 2025 6:06am 15 U/L 13-39 [facility] [id number] [address] [place], [place] [address] Aspartate Amino Transf (AST/SGOT) April 18, 2025 9:08am 19 U/L 13-39 [facility] [id number] [address] [place], [place] [address] Alanine Aminotransfera se (ALT/SGPT) February 16, 2025 6:06am 21 U/L 7-52 [facility] [id number] [address] [place], [place] [address] Alanine Aminotransfera se (ALT/SGPT) April 18, 2025 9:08am 38 U/L 7-52 [facility] [id number] [address] [place], [place] [address] Alkaline Phosphatase February 16, 2025 6:06am 64 U/L 34-104 [facility] [id number] [address] [place] [address]659 Alkaline Phosphatase April 18, 2025 9:08am 73 U/L 34-104 [facility] [id number] [address] [place], [place] [address] Total Creatine Kinase February 15, 2025 10:00am 50 U/L 30-223 [facility] [id number] [address] [place], [place] [address] Troponin I High Sensitivity February 16, 2025 6:06am 10 ng/L 0-20 The Troponin units of report have been changed to meet the Chest Pain Accreditation requirement, element EC5.M1l2. Troponin units are changed from pg/ml to ng/L. Also, the decimal is removed and results are in whole numbers. [facility] [id number] [address] [place] [address]261 B-Type Natriuretic Peptide February 15, 2025 10:00am 31.0 pg/mL 5-100 [facility] [id number] [address] [place], [place] [address] Pharmacy Creatinine Clearance (Chem February 16, 2025 6:06am 103.16 [facility] [id number] [address] [place], [place] [address] Pharmacy Creatinine Clearance (Chem April 18, 2025 9:08am N/A [facility] [id number] [address] [place], [place] [address] Diagnostic Imaging Reports Author Christine Alexandra [facility] Authored January 25, 2025 10:4 4pm Report Dictated Date/Time Dictated By Status Radiology Report January 25, 2025 10:44pm Christine duvall MD completed [facility] Main [place] [address] [place] [address] XRay Report Signed Patient: Valentin Wong MR#: [id number] : 1955 Acct:[id number] Age/Sex: 69 / M ADM Date: 5 Loc: XD Room: Type: [facility] Attending Dr: Sascha Larsen DO Copies to: Sascha Larsen DO~ Ordering Provider: Sascha Larsen DO Date of Service: 01/25/25 XR/XR ankle RT min 3V*: S80.811D RIGHT ANKLE - 3 views CLINICAL DATA: Patient fell down stairs last month and has continued anterior distal lower leg pain COMPARISON: None AP, lateral and oblique views were obtained. There is no evidence of fracture or dislocation. The talar dome is intact. There is minor spurring at the dorsum of the tarsals. There is a large plantar calcaneal spur. There are no significant soft tissue abnormalities. XR/XR ankle RT min 3V* IMPRESSION: NO ACUTE BONY INJURY. Impression dictated by: Christine Alexandra M.D.01/25/2025 10:48 PM Dictation Location: [place] [address] Transcribed By: [facility] 01/25/25 2248 Dictated By: Christine Alexandra MD 01/25/254 Signed By: <Electronically signed by MD Christine Alexandra in OV> 01/25/258 Author Alo Mayer [facility] Authored February 15, 2025 10: 43am Report Dictated Date/Time Dictated By Status Radiology Report February 15, 2025 10:43am Alo Mayer MD completed [facility] Main [address] [address] XRay Report Signed Patient: Valentin Wong MR#: [id number] : 1955 Acct:[id number] Age/Sex: 69 / M ADM Date: 5 Loc: ER Room: Type: [facility] ER Attending Dr: Copies to: MD Romel Ewing DO~ Ordering Provider: Romel Orta DO Date of Service: 02/15/25 XR/XR chest 1V portable: Chest Pain SINGLE VIEW CHEST CLINICAL HISTORY: Midsternal chest pain, short of breath COMPARISON: 09/19/2024 FINDINGS: Unremarkable cardiomediastinal silhouette. Lungs clear. No effusion XR/XR chest 1V portable IMPRESSION: NO ACUTE FINDINGS Impression dictated by: Alo Mayer M.D.02/15/2025 10:47 AM Dictation Location: [place] [address] Transcribed By: [facility] 02/15/25 1047 Dictated By: Alo Mayer MD 02/15/25 1043 Signed By: <Electronically signed by Alo Mayer MD in OV> 02/15/25 1047 Author Cy Bill [facility] Authored April 10, 2025 1:52p m Report Dictated Date/Time Dictated By Status Radiology Report April 10, 2025 1:52pm Cy Bill II MD completed [facility] [place] [facility] [address] [place] [address] XRay Report Signed Patient: Valentin Wong MR#: [id number] : 1955 Acct:[id number] Age/Sex: 69 / M ADM Date: Loc: SOXD Room: Type: [facility] Attending Dr: Jaime Murcia II, MD Copies to: Jaime Murcia MD~ Ordering Provider: Jaime Murcia MD Date of Service: 04/10/25 XR/XR knee RT 4V*: M76.31 - Iliotibial band syndrome, right leg XR knee RT 4V* 04/10/2025 8:56 AM SIGNS AND SYMPTOMS: ^M76.31 - Iliotibial band syndrome, right leg PROTOCOL: Frontal, lateral, oblique, and sunrise views of the right knee COMPARISON: 01/12/2025 FINDINGS: There is narrowing of the weightbearing and patellofemoral joint spaces similar to the prior exam. Partially ossified loose bodies are noted throughout the joint space suspicious for synovial osteochondromatosis. There is a small joint effusion. No soft tissue swelling. No fracture. XR/XR knee RT 4V* IMPRESSION: No acute bony injury. Tricompartmental degenerative changes are redemonstrated. 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 This is unchanged. Impression dictated by: Cy Bill M.D. 04/10/2025 1:53 PM Dictation Location: [place] [address] Transcribed By: [facility] 04/10/25 1353 Dictated By: Cy Bill II, MD 04/10/25 1352 Signed By: <Electronically signed by Cy Bill II, MD in OV> 04/10/25 1353 Vital Signs Vital Reading Result Reference Range Collection Date/Time Height 68 [in_i] February 15 2:59pm Weight 100.90 kg February 16 5:51am Body Temperature 97.8 [degF] 97.6-99.0 February 16, 2025 7:42am Heart Rate 74 /min 60-100 February 16 7:42am Respiratory rate 16 /min 12-24 February 16, 2025 7:42am Oxygen saturation by Pulse oximetry 97 % 95-100 February 16, 2025 7:4 2am BP Systolic 145 mm[Hg] 100-140 February 16 7:42am BP Diastolic 81 mm[Hg] 60-100 February 16 7:42am Advance Directives Advance Directive Response Recorded Date/ Time Advance Directives Yes January 29, 2 024 3:03pm Insurance Providers Guarantor Valentin Wong Address [address] [place] [address] Contact Info. Home Phone: Payer Policy Id Coverage Id Subscriber's Name Subscriber Id Effective Date Expiration Date [place] OLAYINKA [id number] Valentin Wong [id number] Medicare [id number] Valentin Alvino Wong [id number] Encounters Encounter Location(s) Arrival/Admit Date Discharge/Depart Date Provider(s) Discharged Recurring [facility]-Physical Therapy [place] January 24, 2025 9:15am January 24, 2025 7:00pm Eduard Spangler MD Departed Clinical [facility] 25, [facility]25 3:00pm January 25, 2025 3:01pm Sascha Larsen DO Departed Physician/Provi gerri Office Visit [facility] Physician [facility] Orthopedics February 08, 2025 9:00am February 08, 2025 9:57am Eduard Spangler MD Discharged Inpatient [facility] [place] [facility] February 15, 2025 11:58am February 16, 2025 3:46pm Gabi Almanzar MD Departed Physician/Provi gerri Office Visit [facility] Physician [facility] February 21, 2025 7:52am February 21, 2025 8:39am Simba Herron MD Non-patient / Non-visit [facility] Physician [facility] March 13, 2025 12:45pm Simba Herron MD Departed Physician/Provi gerri Office Visit [facility] Physician [facility] March 27, 2025 7:47am March 27, 2025 8:30am Simba Herron MD Departed Clinical [facility]-XRay [facility] April 10, 2025 8:56am April 10, 2025 8:57am Eduard Spangler MD Departed Physician/Provi gerri Office Visit [facility] Physician Group-Counts Include [facility] Orthopedics April 10, 2025 9:30am April 10, 2025 10:00am Eduard Spangler MD Registered Recurring [facility]-Physical Therapy [place] April 18, 2025 8:00am Eduard Spangler MD Departed Clinical [facility]-Lab [address] April 18, 2025 9:08am April 18, 2025 9:09am Romel Davis MD Recent Diagnosis Onset Date Admit Date Greater trochanteric bursitis of right hip February 08, 2025 9:00am Iliotibial band syndrome, right leg February 08, 2025 9:00am Primary osteoarthritis of right hip February 08, 2025 9:00am Dyslipidemia February 15, 2025 11:58am Essential hypertension January 11:58am Frequent PVCs February 15, 2025 11:58am Rheumatoid arthritis February 15, 2025 11:58am Atypical chest pain February 15, 2025 11:58am Arthritis of facet joint of cervical spine February 21, 2025 7:52am Arthritis of lumbosacral spine A pril 2024 7:52am Chronic pain February 21, 2025 7:52am Osteoarthritis of right hip Apri l 2024 7:52am Arthritis of facet joint of cervical spine March 27, 2025 7:47am Arthritis of lumbosacral spine M ay 2024 7:47am Chronic pain March 27, 2025 7: 47am Osteoarthritis of right hip March 27, 2025 7:47am Greater trochanteric bursitis of right hip April 10, 2025 9:30am Iliotibial band syndrome, right leg April 10, 2025 9:30am Lymphedema of both lower extremities April 10, 2025 9:30am Primary osteoarthritis of right hip April 10, 2025 9:30am Primary osteoarthritis of right knee April 10, 2025 9:30am Functional Status Observation Response Date Recorded Dressing Patient at Baseline February 16, 2025 3:44pm Eating Patient at Baseline February 16, 2025 3:44pm Bathing Patient at Baseline February 16, 2025 3:44pm Disability Status Patient at Baseline January 3:44pm Functional Status Assessments Mental Status Observation Response Date Recorded Cognitive Status Patient at Baseline February 16, 2025 3:44pm Cognitive/Mental Status Assessments Assessments Diagnosis Onset Date Resolution Status Admit Date Greater trochanteric bursiti s of right hip acute February 08, 2025 9:00am Iliotibial band syndrome, ri ght leg acute February 08, 2025 9:00am Primary osteoarthritis of ri ght hip acute February 08, 2025 9:00am Dyslipidemia acute February 15, 2025 11:58am Essential hypertension acute Ma rch 2024 11:58am Frequent PVCs acute February 15, 2025 11:58am Rheumatoid arthritis acute Sourav h 2024 11:58am Atypical chest pain resolved February 15, 2025 11:58am Arthritis of facet joint of cervical spine acute February 21, 2025 7:52am Arthritis of lumbosacral spine acute February 21, 2025 7:52am Chronic pain acute February 21, 025 7:52am Osteoarthritis of right hip acute February 21, 2025 7:52am Arthritis of facet joint of cervical spine acute March 27, 2025 7: 47am Arthritis of lumbosacral spine acute March 27, 2025 7:47am Chronic pain acute March 27 7:47am Osteoarthritis of right hip acute March 27, 2025 7:47am Greater trochanteric bursiti s of right hip acute April 10, 2025 9 :30am Iliotibial band syndrome, ri ght leg acute April 10, 2025 9 :30am Lymphedema of both lower extremities acute April 10, 2025 9 :30am Primary osteoarthritis of ri ght hip acute April 10, 2025 9 :30am Primary osteoarthritis of ri ght knee acute April 10, 2025 9 :30am Plan of Treatment Author [facility] Authored February 21, 2025 8:39 am Patient notes considerable i mprovement in their symptoms following a previous left cervical facet radiofrequency ablation. We will continue to monitor and proceed with repeat treatment to the area as needed. He was advised of the importance of activity modification and limitations. We will plan to follow up with the patient as needed. Anatomy of spine discussed in detail with patient in regards to patients condition. Overall, patient believes their cervical pain is reasonably well controlled and he is in agreement with our treatment plan. Patients primary complaint today is returning severe lumbar pain. Given returning pain symptoms as well as previous positive results, we will plan to proceed with repeat bilateral lumbar facet medial branch nerve radiofrequency ablations. Risks and benefits of procedure explained to patient; patient verbalizes understanding. In the meantime, he will continue his current medication regimen. Anatomy of spine discussed in detail with patient in regards to patients condition. Patients right hip pain remains tolerable at this time. He was encouraged to continue with physical therapy which appears to be providing some relief. We can consider a repeat intra-articular hip injection in the future. Above note written by Babak Mas CMA, Stock Analyst. Edited and approved by Dr. Edenilson Mcleod MD. Author Florencio Childers [facility] Authored March 27, 2025 8:30am Patient is voicing notable i mprovement of pain at this time. He attributes this to a recent bilateral lumbar facet medial branch nerve radiofrequency ablations. We will continue to monitor his symptoms in this region. Anatomy of spine discussed in detail with patient in regards to patients condition. Overall, patient believes their pain is reasonably well controlled and he agrees with our treatment plan. Patient notes considerable improvement in their symptoms following a previous left cervical facet radiofrequency ablation. We will continue to monitor and proceed with repeat treatment to the area as needed. He was advised of the importance of activity modification and limitations. We will plan to follow up with the patient as needed. Anatomy of spine discussed in detail with patient in regards to patients condition. Overall, patient believes their cervical pain is reasonably well controlled and he is in agreement with our treatment plan. Patients right hip pain remains tolerable at this time. He was encouraged to continue with physical therapy which appears to be providing some relief. We can consider a repeat intra-articular hip injection in the future. Above note written by Florencio Childers LPN, Stock Analyst. Edited and approved by Dr. Edenilson Mcleod MD. Future Tests Future scheduled test information is unavailable Pending Tests Test Name Ordered Date Scheduled Date Total Complement (CH50) April 18, 2025 9:08am Future Visits Future appointment information is unavailable Referrals to Other Providers Reason for Referral Referral Start Date Provider Provider Contact Information Provider Address Call office on Tuesday to schedule follow-up with your Primary Care Provider within 3-5 days of discharge. Sascha Larsen DO Email: [email or web address] Phone: [address] [place] [phone] Future Procedures Procedure Name Ordered Date Scheduled Date Complement Total (CH50) April 18, 2025 9:09am Bridgett diego 2024 9:08am Admit Status Order February 15, 2025 11:58am Sourav arenas 2024 11:58am Consult to Cardiology February 16, 2025 9:47am Bridgett humphreys 2024 9:47am Discharge Order February 16, 2025 3:00pm February 162024 3:00pm Future Medications Future medication information is unavailable Patient Instructions Instruction Admit Date Know your Meds February 15, 2025 11: 58am Goals Acute Goals Author Authored Date Exhibit optimal tissue perfu cruz * Exhibits adequate oxygenation and ventilation * Exhibits adequate cardiac output * Regains stable cardiac rhythm * Maintains optimal activity level * Maintains balanced intake and output [facility] February 16, 2025 1:23am Maintain/increase activity levels * Understands factors that may lead to activity intolerance * Helps perform self care activities * Maintains maximum range of motion * Increase/regain muscle mass and strength * Maintains VS WNL during activity * Maintain intact skin integrity Updated: 01/03/2023 [facility] February 16, 2025 3:46pm Fall Prevention 2022 [facility] February 16, 2025 3:46pm
--- OUTSIDE RECORDS SUMMARY | 2025-04-22 07:44 | XMS_ITS | Encounter Summary ---
Author Organization [employer] Address [id number] [address] [place] [address] Care Team Providers Care Record Clerk Salesperson Name Role Phone Sascha Larsen Primary Care Provider + [phone] Encounter Details Date Type Department Care Team (Late st Contact Info) Description 04/10/2025 Telephone [facility] - Family Medicine [address] [place] [id number] Carmen Neff CMA Social History Tobacco Use Types Packs/Day Years Used Date Smoking Tobacco: Former Cigarettes Passive Smoke Exposure: Past Smokeless Tobacco: Never Alcohol Use Standard Drinks/Week Comments Not Currently 0 (1 standard drink = 0.6 oz pur e alcohol) [facility] Utilities Answer Date Recorded In the past 12 months has [facility], gas, oil, or water company threatened to shut off [...] 04/14/2023 How often do you attend chur ch or moravian services? More than 4 times per year 04/14/2023 Do you belong to any clubs o r organizations such as orthodoxy groups, unions, fraternal or athletic groups, or [...] PHQ-2 Answer Date Recorded Total Score 0 02/25/2025 [facility] Occupat ional Health - Occupational Stress [...] Recorded Do you need help finding a [facility] and/or a training program? No 04/14/2023 Hunger Screening Answer Date Recorded Within the past 12 months we worried whether our food would run out before we got money to buy more. Never True 02/25/2025 Within the past 12 months th e food we bought just didn't last and we didn't have money to get more. Never True 02/25/2025 Purpose - Life Answer Date Recorded I have a purpose and direction in my life. Stroadalid gly Agree 04/14/2023 Sex and Gender Information Value Date Recorded Sex Assigned at Not on file Legal Sex Male 11:34 AM EDT Gender Identity Not on file Sexual Orientation Not on file documented as of this encounter Miscellaneous Notes * Telephone Encounter - Carmen Neff CMA - 04/10/2025 11:36 AM EDT Pt's called stating pt went to see Dr. Murcia for fluid on his leg due to a fall. recommended his water pill to be upped and to wear compression stockings. I told pt's you may want tosee pt in office, but I told her I'd message you. Thank you. Please advise. * Telephone Encounter - Sascha Larsen DO - 04/10/2025 11:36 AM EDT I should see him in the office if he needs a water pill. He is already taking 1. If it is due to his fall and only on 1 leg then I would do more conservative measures like ice elevation and Raúl wrap compression documented in this encounter Plan of Treatment Upcoming Encounters Date Type Department Care Team (Late st Contact Info) Description 05/07/2025 9:40 AM EDT Office Visit [facility] - Family Medicine [address] [place] [address] documented as of this encounter Visit Diagnoses Not on filedocumented in this encounter Additional Health Concerns Assessment Noted Time PHQ-9 Depression Total Score: 0 02/26/20 25 1:33 PM EDT documented as of this encounter Care Teams Record Clerk Salesperson Relationship Specialty Start Date End Date Sascha Larsen DO [address], [facility] [place] [address] PCP - General Family Medicine 09/23/22 documented as of this encounter
--- OUTSIDE RECORDS SUMMARY | 2025-04-22 07:44 | XMS_ITS | Encounter Summary ---
Author Organization [facility] Address [address] [place] [address] Phone Care Team Providers Care Records Management Associate Name Role Phone Sascha Larsen DO Primary Care Provider Encounter Details Date Type Department Care Team (Late st Contact Info) Description 02/16/2025 Scanned Document [facility] [address] [place] [id number] Scanning, Generic Provider Social History Tobacco Use Types Packs/Day Years Used Date Smoking Tobacco: Never Assessed Sex and Gender Information Value Date Recorded Sex Assigned at Not on file Legal Sex Male 3:52 PM EDT Gender Identity Not on file Sexual Orientation Not on file documented as of this encounter Plan of Treatment Not on file documented as of this encounter Visit Diagnoses Not on filedocumented in this encounter Care Teams Records Management Associate Relationship Specialty Start Date End Date Sascha Larsen DO PCP - General 03/30/23 documented as of this encounter
--- OUTSIDE RECORDS SUMMARY | 2025-04-22 07:44 | XMS_ITS | Clinical Summary ---
Author Organization [employer] Address [id number] [address] [place] [address] Care Team Providers Care Webbing Weaver Name Role Phone Sascha Larsen DO Primary Care Provider [phone] Allergies Active Allergy Reactions Criticality Noted Date Comments Aspirin,Buffd-Calcium Carb-Mag Vomiting 09/29 Calcium Carbonate Nausea 05/28/2024 Cephalosporins Other (See Comments) 05/20/2014 Magnesium GI Disturbance,Nausea 05/07/2023 Oxycodone Hallucinations 04/25/2018 Sulfa (Sulfonamide Antibiotics) Rash Low 04/23 Medications traMADoL (ULTRAM) 50 mg tablet Active methotrexate, PF, 25 mg/mL chemo syringe Active leflunomide (ARAVA) 10 mg tablet Active hydrOXYchloroQUINE (PLAQUENIL) 200 mg tablet Active folic acid (FOLVITE) 1 mg tablet Active budesonide (RINOCORT AQUA) 32 mcg/actuation nasal spray 62,500 sprays. Active insulin syringe-needle U-100 1 mL 31 gauge x 5/16 syringe Active loratadine (CLARITIN) 10 mg tabletIndications: Allergic rhinitis Take 1 tablet (10 mg total) by mouth in the morning. 30 tablet 3 Active KLOR-CON/EF 25 mEq disintegrating tablet Take 1 tablet (25 mEq total) by mouth in the morning and 1 tablet (25 mEq total) before bedtime. 4 Active acetaminophen (TYLENOL EXTRA STRENGTH) 500 mg tablet Take 2 tablets (1,000 mg total) by mouth as needed in the morning and 2 tablets (1,000 mg total) as needed at noon and 2 tablets (1,000 mg total) as needed in the evening for pain. 3 Active tamsulosin (FLOMAX) 0.4 mg capsule Take 1 capsule (0.4 mg total) by mouth nightly. Active montelukast (SINGULAIR) 10 mg tablet take 1 tablet by mouth daily 90 tablet 3 4 Active simvastatin (ZOCOR) 20 mg tablet take 1 tablet by mouth daily 90 tablet 3 4 Active prednisoLONE acetate (PRED FORTE) 1 % ophthalmic suspension 3 Active meloxicam (MOBIC) 15 mg tablet 4 Active leucovorin (WELLCOVORIN) 5 mg tablet 5 Active predniSONE (DELTASONE) 20 mg tablet prn 4 Active lisinopril-hydroCH LOROthiazide (PRINZIDE,ZESTORET IC) 20-12.5 mg per tablet TAKE 1 TABLET BY MOUTH DAILY 90 tablet 1 5 Active primidone (MYSOLINE) 50 mg tablet 1 tablet (50 mg total). 1 po in AM 3 po at HS 5 Active naproxen (NAPROSYN) 250 mg tablet Oral for 3 Days Active omeprazole (PriLOSEC) 40 mg capsule Oral for 90 Days Active gabapentin (NEURONTIN) 100 mg capsuleIndications :Lumbar radiculopathy Take 1 capsule (100 mg total) by mouth 3 (three) times a day. 90 capsule 1 5 Active omeprazole (PriLOSEC) 20 mg capsule Take 1 capsule (20 mg total) by mouth in the morning. 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 05/28/2024 DDD (degenerative disc disease), lumbar 05/28/20 24 Decreased hearing of both ears 05/28/2024 Dysphagia 05/28/2024 Iritis 05/28/2024 Leukocytosis 05/28/2024 Lumbosacral stenosis with neurogenic claudicatio n 05/28/2024 Osteoporosis 05/28/2024 Piriformis syndrome 05/28/2024 Renal colic 05/28/2024 Renal colic 05/28/2024 Spondylolisthesis of lumbar region 05/28/2024 Stenosis, cervical spine 05/28/2024 Stenosis, cervical spine 05/28/2024 Thyroid mass of unclear etiology 05/28/2024 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 05/28/2024 Lumbar radiculopathy 05/28/2024 Hydronephrosis 12/14/2023 Kidney stones 12/14/2023 Gross hematuria 12/14/2023 Class 1 obesity due to exces s calories with serious comorbidity and body mass index (BMI) of 33.0 to 33.9 in adult 04/15/2023 Antiphospholipid syndrome 09/29/2022 Cleft palate and cleft lip 09/29/2022 Cluster headache 09/29/2022 Hearing loss 09/29/2022 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 Osteoarthritis of knee 09/29/2022 Carpal tunnel syndrome 08/02/2018 Allergic rhinitis 07/28/2017 Essential hypertension 04/26/2017 Actinic keratosis 02/12/2017 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 Rotator cuff syndrome of right shoulder 11/21/19 09 Glenoid labrum tear 11/21/2008 Traumatic rupture of biceps tendon 11/21/2008 Connective tissue disease Hyperlipidemia Resolved Problems Problem Noted Date Diagnosed Date Resolved Date Eye cancer 05/28/2024 06/14/2024 Overweight with body mass in dex (BMI) 25.0-29.9 01/20/2017 04/15/2023 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 04/10/2025 Telephone [facility] - Family Medicine [address] [place] [address] Carmen Neff, [facility] 02/25/2025 1:30 PM EDT Office Visit [facility] [address] [place] [address] Sascha Larsen, DO Other chest pain (Primary Dx); Thoracic region somatic dysfunction; Essential hypertension 02/25/2025 Travel 02/24/2025 Refill [facility] - Family Medicine [address] [place] [address] Sascha Larsen, DO 01/29/2025 2:00 PM EDT Office Visit [facility] Family Medicine [address] [place] [address] Sascha Larsen, Right leg weakness (Primary Dx); Fall, initial encounter; Lumbosacral stenosis with neurogenic claudication; Perforation of right tympanic membrane 01/29/2025 Travel 01/29/2025 Orders Only [facility] [address] [place] [address] Ref Prov, Not In System 01/28/2025 Orders Only [facility] [address] [place] [address] Ref Prov, Not In System 01/25/2025 11:30 AM EST Office Visit [facility] Medicine [address] [place] [address] Sascha Larsen, DO Abrasion of anterior right lower leg, subsequent encounter (Primary Dx); Cellulitis of right lower extremity; Contusion of right lower leg, subsequent encounter 01/25/2025 Travel from Last 3 Months Immunizations Immunization Administration Dates Next Due Covid-19, Mrna, Lnp-s, Bival ent, Pf, 30mcg/0.3 ml 10/08/2022 Covid-19, Mrna, Lnp-s, Pf,erasmo-sucrose,30 Mcg/0.3ml Seasonal 08/23/2023 Hep B, Adolescent or Pediatric 11/20/1990,1989 Influenza, High-dose, Quadrivalent 08/23/2023, Influenza, Injectable, MDCK, Quadrivalent 08/20/2019 Influenza, Injectable, Mdck, Preservative Free, Quad 08/22/2020,09/05/2018,07/28/2017 Influenza, Injectable, Quadrivalent 09/09/2016 Influenza, Injectable, quadr ivalent (PF) 07/28/2021 Influenza, Unspecified 12/05/2022,2021,07/28/2021,08/22,08/20/2019,09/05/2018,09/09/2016 Pneumococcal Conjugate 13-Valent 09/16/2016 Pneumococcal Conjugate 20-valent 04/16/2022 Pneumococcal Polysaccharide 12/05/2012 RSV, bivalent, protein subun it RSVpreF, diluent reconstituted, 0.5 mL, PF 08/23/2023 SARS-COV-2 (COVID-19) Vaccin e, Unspecified 10/08/2022 Tdap 05/20/2023,12/05/2012 Zoster Vaccine Recombinant 08/26/2019,06/27/2019 Family History Medical History Relation Name Comments Diabetes type II Brother Arthritis Daughter Heart disease Father Heart disease Mother Arthritis Son Relation Name Status Comments Brother Daughter Alive Father Mother Son Social History Tobacco Use Types Packs/Day Years Used Date Smoking Tobacco: Former Cigarettes Passive Smoke Exposure: Past Smokeless Tobacco: Never Alcohol Use Standard Drinks/Week Comments Not Currently 0 (1 standard drink = 0.6 oz pur e alcohol) [facility] Utilities Answer Date Recorded In the past 12 months has [employer], gas, oil, or water [employer] threatened to shut off services in your [...] often do you attend chur ch or yarsani services? More than 4 times per year 04/14/2023 Do you belong to any clubs o r organizations such as protestant groups, unions, fraternal or athletic groups, or [...] Answer Date Recorded Total Score 0 04/16/2025 [facility] of Occupat ional Health - [...] Recorded Do you need help finding a [facility] career center and/or a training program? No [...] on file Sexual Orientation Not on file Last Filed Vital Signs Vital Sign Reading [...] Mass Index 33.16 04/16/2025 4:35 PM EDT Plan of Treatment Upcoming Encounters Date Type Department Care Team (Late st Contact Info) Description 05/07/2025 9:40 AM EDT Office Visit [facility] - [facility] Medicine [address] [place] [address] Health Maintenance Due Date Last Done Comments Adult BMI Follow Up Plan 1975 Abdominal Aortic Aneurysm (A AA) Screen 2022 COVID-19 Vaccine (3 - Pfizer risk series) 09/20/2023 08/23/2023, 10/08/2022, 10/08/2022 Medicare Annual Wellness Visit 05/01/2025 05/01/2024 , 04/14/2023 Influenza Vaccine 07/22/2025 11/03/2024, , 12/05/2022, Additional history exists Adult BMI Screening 04/16/2026 04/16/2025 Depression Screening 04/16/2026 04/16/2025 Fall Risk Screening 04/16/2026 04/16/2025 Tobacco Screening 04/16/2026 04/16/2025 Colonoscopy 06/15/2027 06/15/2017 DTaP,Tdap and Td Vaccines (3 - Td or Tdap) 05/20/2033 05/20/2023, 12/05/2012 Zoster (Shingles) Vaccine Completed 08/26/2019, 05/2019 Medical Devices Not on file Procedures Procedure Name Priority Date/Time Associated Diagnosis Comments XR ANKLE RT MIN 3 VWS Routine 01/25/2025 10:37 AM EST HM COLONOSCOPY Routine 06/15/2017 7:42 AM EDT from Last 3 Months or Most Recently Relevant to Health Maintenance Results * X-ray ankle right minimum 3 views (01/25/2025 10:37 AM EST) Anatomical Region Laterality Modality Lower Extremities, MSK, Ankle Right Co mputed Radiography us Not In System Ref Prov IMG DIAGNOSTIC IMAGING OR DERABLES Final Result * HM COLONOSCOPY (06/15/2017 7:42 AM EDT) us Scanning Provider External HEALTH MAINTENANCE Fi nal Result MANUALLY TRANSCRIBED RESULTS from Last 3 Months or Most Recently Relevant to Health Maintenance Insurance MEDICARE [facility] Care Teams Webbing Weaver Relationship Specialty Start Date End Date Sascha Larsen DO [address] [facility] [place] [address] PCP - General Family Medicine 09/23/22
--- OUTSIDE RECORDS SUMMARY | 2025-04-22 07:44 | XMS_ITS | Encounter Summary ---
Author Organization [employer] Address [id number] [address] [place] [address] Care Team Providers Care Derrick Man Name Role Phone Sascha Larsen Primary Care Provider + [phone] Encounter Details Date Type Department Care Team (Late st Contact Info) Description 04/10/2025 Telephone [facility] - Family Medicine [address] [place] [phone] Carmen Neff CMA Social History Tobacco Use Types Packs/Day Years Used Date Smoking Tobacco: Former Cigarettes Passive Smoke Exposure: Past Smokeless Tobacco: Never Alcohol Use Standard Drinks/Week Comments Not Currently 0 (1 standard drink = 0.6 oz pur e alcohol) [facility] Utilities Answer Date Recorded In the past 12 months has [employer], gas, oil, or water company threatened to [...] often do you attend chur ch or hoahaoism services? More than 4 times per year 04/14/2023 Do you belong to any clubs o r organizations such as hoahaoism groups, unions, fraternal or athletic groups, or [...] Answer Date Recorded Total Score 0 04/16/2025 [facility] of Occupat ional Health - Occupational [...] Recorded Do you need help finding a [facility] career [facility] and/or a training program? No [...] Encounter - Carmen Neff CMA - 04/10/2025 3:04 PM EDT I spoke with pt and tried scheduling him but you are booked out until the 06 of May. Is there somewhere where you'd like him to be put? Pt has been icing and elevating leg. I advised him to wrap it as well. Thank you. * Telephone Encounter - Sascha Larsen DO - 04/10/2025 3:04 PM EDT Put in at 4:45 p.m. on Tuesday * Telephone Encounter - Carmen Neff CMA - 04/10/2025 3:04 PM EDT Pt is scheduled. documented in this encounter Plan of Treatment Upcoming Encounters Date Type Department Care Team (Late st Contact Info) Description 05/07/2025 9:40 AM EDT Office Visit [facility] - [facility] [address] [place] [phone] documented as of this encounter Visit Diagnoses Not on filedocumented in this encounter Additional Health Concerns Assessment Noted Time PHQ-9 Depression Total Score: 0 02/26/20 25 1:33 PM EDT documented as of this encounter Care Teams Derrick Man Relationship Specialty Start Date End Date Sascha Larsen DO [address] [place] [address] PCP - General Family Medicine 09/23/22 documented as of this encounter
--- OUTSIDE RECORDS SUMMARY | 2025-04-22 07:44 | XMS_ITS | Encounter Summary ---
Author Organization [facility] Address [address] [place] [address] Phone Care Team Providers Care Mixed Livestock Farm Worker Name Role Phone Sascha Larsen DO Primary Care Provider Encounter Details Date Type Department Care Team (Late st Contact Info) Description 05/03/2023 Orders Only [facility] [address] [place] [address] Conversion, Onbase Social History Tobacco Use Types Packs/Day Years Used Date Smoking Tobacco: Never Assessed Sex and Gender Information Value Date Recorded Sex Assigned at Not on file Legal Sex Male 3:52 PM EDT Gender Identity Not on file Sexual Orientation Not on file documented as of this encounter Plan of Treatment Scheduled Orders Name Type Priority Associated Diagnoses Orde r Schedule OUTSIDE LAB SCAN Lab Ordered: 05/03/2023 documented as of this encounter Visit Diagnoses Not on filedocumented in this encounter Care Teams Mixed Livestock Farm Worker Relationship Specialty Start Date End Date Sascha Larsen DO PCP - General 03/30/23 documented as of this encounter
--- OUTSIDE RECORDS SUMMARY | 2025-04-22 07:44 | XMS_ITS | Encounter Summary ---
Author Organization [employer] Address [id number] [address] [place] [address] Care Team Providers Care Television Receiver Analyzer Name Role Phone Sascha Larsen Primary Care Provider + [phone] Encounter Details Date Type Department Care Team (Late st Contact Info) Description 12/07/2024 Orders Only [facility] - Family Medicine [address] [place] [address] Minerva Saini CMA Encounter for screening for malignant neoplasm of prostate; Hyperlipidemia, unspecified hyperlipidemia type; Essential hypertension Social History Tobacco Use Types Packs/Day Years Used Date Smoking Tobacco: Former Cigarettes Passive Smoke Exposure: Past Smokeless Tobacco: Never Alcohol Use Standard Drinks/Week Comments Not Currently 0 (1 standard drink = 0.6 oz pur e alcohol) [facility] Utilities Answer Date Recorded In the past 12 months has e electric, gas, oil, or water company threatened to [...] often do you attend chur ch or latter-day services? More than 4 times per year 04/14/2023 Do you belong to any clubs o r organizations such as anabaptist groups, unions, fraternal or athletic groups, or [...] PHQ-2 Answer Date Recorded Total Score 0 09/24/2024 [facility] of Occupat ional Health - Occupational Stress [...] got money to buy more. Never True 09/24/2024 Within the past 12 months th e food we bought just didn't last and we didn't have money to get more. Never True 09/24/2024 Purpose - Life Answer Date Recorded I have a purpose and direction in my life. Stron gly Agree 04/14/2023 Sex and Gender Information Value Date Recorded Sex Assigned at Not on file Legal Sex Male 11:34 AM EDT Gender Identity Not on file Sexual Orientation Not on file documented as of this encounter Plan of Treatment Upcoming Encounters Date Type Department Care Team (Late st Contact Info) Description 05/07/2025 9:40 AM EDT Office Visit [facility] - [facility] Medicine [address] [place] [address] documented as of this encounter Procedures Procedure Name Priority Date/Time Associated Diagnosis Comments PROSTATIC SPECIFIC ANTIGEN SCREEN Routine 12/07/2024 Encounter for screening for malignant neoplasm of prostate LIPID PROFILE Routine 12/07/2024 Hyperlipidemia, unspecified hyperlipidemia type COMPREHENSIVE METABOLIC PANEL Routine 12/07/2024 Essential hypertension documented in this encounter Results * Comprehensive metabolic panel (12/07/2024) External Albumin 4.1 MAN UALLY TRANSCRIBED RESULTS External Alt Sgpt 28 MANUALLY TRANSCRIBED RESULTS External Anion Gap 10.2 MANUALLY TRANSCRIBED RESULTS External Ast 17 MANUALL Y TRANSCRIBED RESULTS External Blood Urea Nitrogen Bun 29 MANUALLY TRANSCRIBED RESULTS External Calcium Ca 8.9 MANUALLY TRANSCRIBED RESULTS External Chloride 110 MANUALLY TRANSCRIBED RESULTS External Co2 / Carbon Dioxide 22.8 MANUALLY TRANSCRIBED RESULTS External Creatinine 0.85 MANUALLY TRANSCRIBED RESULTS External Gfr Non Amer >60.0 MANUALLY TRANSCRIBED RESULTS External Alkaline Phosphatase 82 MANUALLY TRANSCRIBED RESULTS External Glucose Fasting Or Random (Fbs) 97 MANUALLY TRANSCRIBED RESULTS External Potassium K 4.0 MANUALLY TRANSCRIBED RESULTS External Sodium Na 139 MANUALLY TRANSCRIBED RESULTS Total Bilirubin 0.6 MANU ALLY TRANSCRIBED RESULTS External Total Protein 6.4 MANUALLY TRANSCRIBED RESULTS Blood 12/07/2024 us Sascha Larsen DO LAB BLOOD ORDERABLES Final R esult MANUALLY TRANSCRIBED RESULTS * Lipid panel (12/07/2024) External Cholesterol 125 MANUALLY TRANSCRIBED RESULTS External Cholesterol:Hdl 53 MANUALLY TRANSCRIBED RESULTS External Ldl (Calc) 61 MANUALLY TRANSCRIBED RESULTS External Triglycerides 54 MANUALLY TRANSCRIBED RESULTS Blood 12/07/2024 Sascha Larsen DO LAB BLOOD ORDERABLES Final R esult Performing Organization Address City/[facility]/ZIP Co de Phone Number MANUALLY TRANSCRIBED RESULTS * Prostatic specific antigen screen (12/07/2024) PSA 2.510 ng/mL MANUALLY TRANSCRIBED RESULTS 12/07/2024 us Sascha Larsen DO LAB BLOOD ORDERABLES Final R esult Performing Organization Address City/[facility] Co de Phone Number MANUALLY TRANSCRIBED RESULTS documented in this encounter Visit Diagnoses Diagnosis Encounter for screening for malignant neoplasm of prostate Hyperlipidemia, unspecified hyperlipidemia type Essential hypertension Unspecified essential hypertension documented in this encounter Additional Health Concerns Assessment Noted Time PHQ-9 Depression Total Score: 0 09/24/20 24 1:35 PM EST documented as of this encounter Care Teams Television Receiver Analyzer Relationship Specialty Start Date End Date Sascha Larsen DO [address], [facility] [address] PCP - General Family Medicine 09/23/22 documented as of this encounter
--- OUTSIDE RECORDS SUMMARY | 2025-04-22 07:44 | XMS_ITS | Encounter Summary ---
Author Organization [employer] Address [facility]-[id number] [address] [place] [address] Care Team Providers Care Osteopathic Resident Name Role Phone Sascha Larsen Primary Care Provider + [phone] Encounter Details Date Type Department Care Team (Late st Contact Info) Description 01/29/2025 Orders Only [facility] - Family Medicine [address] [place] [address] Ref Prov, [place] [address] Social History Tobacco Use Types Packs/Day Years Used Date Smoking Tobacco: Former Cigarettes Passive Smoke Exposure: Past Smokeless Tobacco: Never Alcohol Use Standard Drinks/Week Comments Not Currently 0 (1 standard drink = 0.6 oz pur e alcohol) [facility] Utilities Answer Date Recorded In the past 12 months has [employer], gas, oil, or water [employer] threatened to shut off services in your [...] often do you attend chur ch or catholic services? More than 4 times per year 04/14/2023 Do you belong to any clubs o r organizations such as hinduism groups, unions, fraternal or athletic groups, or [...] PHQ-2 Answer Date Recorded Total Score 0 01/25/2025 [facility] - Occupational Stress Questionnaire Answer Date Recorded [...] Recorded Do you need help finding a adventist health delanoal career center and/or a training program? No 04/14/2023 Hunger Screening Answer Date Recorded Within the past 12 months we worried whether our food would run out before we got money to buy more. Never True 01/25/2025 Within the past 12 months th e food we bought just didn't last and we didn't have money to get more. Never True 01/25/2025 Purpose - Life Answer Date Recorded I [...] - Family Medicine [address] [place] [address] documented as of this encounter Procedures Procedure Name Priority Date/Time Associated Diagnosis Comments XR ANKLE RT MIN 3 VWS Routine 01/25/2025 10:37 AM EST documented in this encounter Results * X-ray ankle right minimum 3 views (01/25/2025 10:37 AM EST) Anatomical Region Laterality Modality Lower Extremities, MSK, Ankle Right Co mputed Radiography us Not In System Ref Prov IMG DIAGNOSTIC IMAGING OR DERABLES Final Result documented in this encounter Visit Diagnoses Not on filedocumented in this encounter Additional Health Concerns Assessment Noted Time PHQ-9 Depression Total Score: 0 01/26/20 25 11:28 AM EST documented as of this encounter Care Teams Osteopathic Resident Relationship Specialty Start Date End Date Sascha Larsen DO [address] [place] [address] PCP - General Family Medicine 09/23/22 documented as of this encounter
--- OUTSIDE RECORDS SUMMARY | 2025-04-22 07:44 | XMS_ITS | Encounter Summary ---
Author Organization [facility] Address [address] [place] [address] Phone Care Team Providers Care Review Nurse Name Role Phone Sascha Larsen DO Primary Care Provider Encounter Details Date Type Department Care Team (Late st Contact Info) Description 03/20/2023 Orders Only [facility] [address] [place] [address] Conversion, Onbase Social History Tobacco Use Types [...] r Schedule OUTSIDE LAB SCAN Lab Ordered: 03/20/2023 documented as of this encounter Visit Diagnoses Not on filedocumented in this encounter Care Teams Review Nurse Relationship Specialty Start Date End Date Sascha Larsen DO PCP - General 03/30/23 documented as of this encounter
--- OUTSIDE RECORDS SUMMARY | 2025-04-22 07:44 | XMS_ITS | Clinical Summary ---
Author Organization [facility] Address [address] [place] [address] Phone Care Team Providers Care Maintenance Service Dispatcher Name Role Phone Sascha Larsen DO Primary Care Provider Encounters Date Type Department Care Team Description 02/16/2025 Scanned Document [facility] [address] [place] [address] Scanning, Generic Provider from Last 3 Months Social History Tobacco Use Types Packs/Day Years Used Date Smoking Tobacco: Never Assessed Sex and Gender Information Value Date Recorded Sex Assigned at Not on file Legal Sex Male 3:52 PM EDT Gender Identity Not on file Sexual Orientation Not on file Last Filed Vital Signs Vital Sign Reading Time Taken Comments Blood Pressure 88/60 05/09/2023 10:34 AM EDT Pulse 78 05/09/2023 10:34 AM EDT Temperature - - Respiratory Rate - - Oxygen Saturation - - Inhaled Oxygen Concentration - - Weight 97.1 kg (214 lb) 05/09/2023 10:34 AM EDT Height 172.7 cm (5' 8 ) 05/09/2023 10:34 AM EDT Body Mass Index 32.54 05/09/2023 10:34 AM EDT Plan of Treatment Health Maintenance Due Date Last Done Comments CT Colonography 1957 Colonoscopy 1957 Colorectal Cancer Screening 1957 FIT-DNA (Cologuard) 1957 FIT 1957 Lipid Panel 1957 Medicare Annual Wellness Vis it (AWV) 1957 Sigmoidoscopy 1957 Hepatitis C Screening 1975 DTaP/Tdap/Td Vaccines (1 - Tdap) 1979 Pneumococcal Vaccine (1 of 1 - PCV) 2007 Zoster Vaccines (1 of 2) 2007 COVID-19 Vaccine ( - 2023-2 5 season) 2024 Influenza Vaccine (Season Ended) 2025 RSV High Risk: (Elderly (60+ ) or Population) (1 - 1-dose 75+ series) 2032 HIB Vaccines Aged Out No longer eligi ble based on patient's age to complete this topic HPV Vaccines Aged Out No longer eligi ble based on patient's age to complete this topic Hepatitis A Vaccines Aged Out No long er eligible based on patient's age to complete this topic Hepatitis B Vaccines Aged Out No long er eligible based on patient's age to complete this topic IPV Vaccines Aged Out No longer eligi ble based on patient's age to complete this topic Meningococcal Vaccine Aged Out No megan luisa eligible based on patient's age to complete this topic Rotavirus Vaccines Aged Out No longer eligible based on patient's age to complete this topic Insurance MEDICARE PART A AND B [facility] Care Teams Maintenance Service Dispatcher Relationship Specialty Start Date End Date Sascha Larsen DO PCP - General 03/30/23
--- OUTSIDE RECORDS SUMMARY | 2025-04-22 07:44 | XMS_ITS | Patient Health Record ---
Author Organization [facility] Address [address] [place] [address] Care Team Providers Care Project Specialist Name Role Phone Out of Town, Out of town Primary Care Provider U nadiaailable Gersonpatricia Artis Yen Unavailable Ibeth Gonsalez Unavailable [phone] Allergies Allergen (clinical drug ingredient) Drug/Non Drug Allergy documented on EMR Reaction Allergy Type Onset Date Status cephalexin Cephalexin unable to remember Drug Allergy Active oxycodone oxyCODONE hears voices Drug Allergy Acti ve Substance with sulfonamide structure and antibacterial mechanism of action (substance) Sulfa Antibiotics rash Drug Allergy Active Reason For Referral No Information Medications Medication SIG (Take, Route, Frequency, Duration) Notes Start Date End Date Status Omeprazole 40 MG Oral for 90 Days Active Leucovorin Calcium 5 MG Oral for 84 Days Active dexAMETHasone 2 MG Oral for 7 Days Active Lisinopril-hydroCHLOROthiazi de 20-12.5 MG Oral for 90 Days Active Primidone 50 MG Oral for 90 Days Active Naproxen 250 MG Oral for 3 Days Active Tamsulosin HCl 0.4 MG Oral for 30 Days Active Methotrexate Sodium (PF) 50 MG/2ML Injection for 42 Days Active Klor-Con/EF 25 MEQ TAKE 1 TABLET BY CARLOS TH TWICE A DAY Oral for 90 Days Active traMADol HCl 50 MG Oral for 30 Days Active Leflunomide 10 MG Oral for 90 Days Active Meloxicam 15 MG Oral for 30 Days Active Immunizations Vaccine Route Administration Date Status Comme nts Pneumonia ( Given in the Pas t) Unspecified Unknown 09/06/2024 Administered Problems Problem Type SNOMED Code ICD Code Onset Dates Problem Status W/U Status Risk Notes Problem Hypertension (25763050) Hypertension (I10) Active confirmed Problem Osteoarthritis (485200849) Osteoarthritis (M19.90) Active confirmed Problem Benign prostatic hyperplasia (385559702) BPH (benign prostatic hyperplasia) (N40.0) Active confirmed Problem Rheumatoid arthritis (24077438) Rheumatoid arthritis (M06.9) Active confirmed Problem Gastroesophageal reflux disease (548029325) GERD (K21.9) Active confirmed Encounters Encounter Location Date Provider Diagnosis [address] [address] [place] [address] 09/06/2024 Yen Artis Impacted cerumen of right ear H61.21 and Influenza vaccination declined Z28.21 [address] [facility] [address] [place] [address] 03/23/2025 Ibeth Gonsalez Impacted cerumen, right ear H61.21 Assessments Encounter Date Diagnosis (ICD Code) Assessment Notes Treatment Notes Treatment Clinical Notes Section Notes 09/06/2024 Impacted cerumen of right ear (ICD-10 - H61.21) Earwax Blockage: Care Instructions material was published Earwax is a natural substance that protects the ear canal. Normally, earwax drains from the ears and does not cause problems. Sometimes earwax builds up in the ear canal and hardens. Earwax blockage (also called cerumen impaction) can cause some loss of hearing and pain. When wax is tightly packed, you will need to have your doctor remove it. Follow-up care is a nixon part of your treatment and safety. Be sure to make and go to all appointments, and call your doctor if you are having problems. It's also a good idea to know your test results and keep a list of the medicines you take. How can you care for yourself at home?Do not try to remove earwax with cotton swabs, fingers, or other objects. This can make the blockage worse and damage the eardrum.If your doctor recommends that you try to remove earwax at home:Soften and loosen the earwax with warm mineral oil. You also can try hydrogen peroxide mixed with an equal amount of room temperature water. Place 2 drops of the fluid, warmed to body temperature, in the ear two times a day for up to 5 days.Once the wax is loose and soft, all that is usually needed to remove it from the ear canal is a gentle, warm shower. Direct the water into the ear, then tip your head to let the earwax drain out. Use a towel to gently dry your ear.If the warm mineral oil and shower do not work, use an [id number]-dokxafu wax softener. Read and follow all instructions on the label. After using the wax softener, use an ear syringe to gently flush the ear. Make sure the flushing solution is body temperature. Cool or hot fluids in the ear can cause dizziness.When should you call for help?Call your doctor now or seek immediate medical care if: Pus or blood drains from your ear.Your ears are ringing or feel full.You have a loss of hearing.Watch closely for changes in your health, and be sure to contact your doctor if: You have pain or reduced hearing after 1 week of home treatment.You have any new symptoms, such as nausea or balance problems. 09/06/2024 Influenza vaccination declined (ICD-10 - Z28.21) 03/23/2025 Impacted cerumen, right ear (ICD-10 - H61.21) Earwax Blockage: Care Instructions material was published please use debrox as instructed and return in 1 week for follow up or cerumen removal of right ear 09/06/2024 Other Visit summary discussed with patient and/or parent who verbalizes understanding and agreement with plan of care Thank you for your visit. Please look for the satisfaction survey that you will receive via email. We look forward to receiving your feedback regarding your experience at [facility]. If patient is prompt pay, remove CUSTOM VAN CONVERTER and add one of the following CPTs: 46974 if irrigation only was used or 77276 if instrumentation used. Add ICD code associated with Impacted Cerumen with specific laterality. Plan Of Treatment No Information Insurance Providers Payer Name Payer Address Payer Phone Subscriber Number Group Number Insured Name Patient Relationship to Insured Coverage Start Date Coverage End Date [place] [address] [place] [address] [id number] Vaelntin Wong Self - patient is the insured [facility] Medicare Supplement [facility] [address] [place] [address] [id number] Valentin Wong Self - patient is the insured Medical (General) History Medical History History ICD Code Hypertension I10 BPH (benign prostatic hyperplasia) N40.0 Rheumatoid arthritis M06.9 Osteoarthritis M19.90 GERD K21.9
--- OUTSIDE RECORDS SUMMARY | 2025-04-22 07:44 | XMS_ITS | Encounter Summary ---
Author Organization [employer] [facility] tem Address [id number] [address] [place] [address] Care Team Providers Care Manufacturing Systems Engineer Name Role Phone Sascha Larsen Primary Care Provider + [phone] Encounter Details Date Type Department Care Team (Latest Contact Info) Description 04/16/2025 Travel Social History Tobacco Use Types Packs/Day Years Used Date Smoking Tobacco: Former Cigarettes Passive Smoke Exposure: Past Smokeless Tobacco: Never Alcohol Use Standard Drinks/Week Comments Not Currently 0 (1 standard drink = 0.6 oz pur e alcohol) [facility] Utilities Answer Date Recorded In the past 12 months has [employer], gas, oil, or water [employer] threatened to shut off services in your home? No 05/01/2024 Social Connection and Isolat ion Panel [NHANES] Answer Date Recorded In a typical week, how many times do you talk on the phone with family, friends, or neighbors? Once a week 04/14/2023 How often do you get togethe r with friends or relatives? Once a week 04/14/2023 How often do you attend [facility] or christian services? More than 4 times per year 04/14/2023 Do you belong to any clubs o r organizations such as religious groups, unions, fraternal or athletic groups, or [...] Answer Date Recorded Total Score 0 04/16/2025 [facility] of Occupat ional Health - Occupational Stress [...] Do you need help finding a l al career center and/or a training program? No [...] - Family Medicine [address] [place] [address] documented as of this encounter Visit Diagnoses Not on filedocumented in this encounter Additional Health Concerns Assessment Noted Time PHQ-9 Depression Total Score: 0 04/16/20 25 4:31 PM EDT documented as of this encounter Care Teams Manufacturing Systems Engineer Relationship Specialty Start Date End Date Sascha Larsen DO [address] [place] [address] PCP - General Family Medicine 09/23/22 documented as of this encounter
--- OUTSIDE RECORDS SUMMARY | 2025-04-22 07:44 | XMS_ITS | Encounter Summary ---
Author Organization [employer] Address [id number] [address] [place] [address] Care Team Providers Care Well Control Instructor Name Role Phone Sascha Larsen Primary Care Provider + [phone] Encounter Details Date Type Department Care Team (Late st Contact Info) Description 01/28/2025 Orders Only [facility] - Family Medicine [address] [place] [address] Ref Prov, [place] [address] Social History Tobacco Use Types Packs/Day Years Used Date Smoking Tobacco: Former Cigarettes Passive Smoke Exposure: Past Smokeless Tobacco: Never Alcohol Use Standard Drinks/Week Comments Not Currently 0 (1 standard drink = 0.6 oz pur e alcohol) [facility] Utilities Answer Date Recorded In the past 12 months has [employer], gas, oil, or water [employer] threatened to shut off services in your [...] often do you attend chur ch or sikhism services? More than 4 times per year 04/14/2023 Do you belong to any clubs o r organizations such as islam groups, unions, fraternal or athletic groups, or [...] Answer Date Recorded Total Score 0 01/25/2025 [facility] - Occupational Stress Questionnaire Answer [...] Recorded Do you need help finding a college medical centeral career center and/or a training program? No [...] - Family Medicine [address] [place] [address] documented as of this encounter Procedures Procedure Name Priority Date/Time Associated Diagnosis Comments MULTIPLE LABS Routine 01/14/2025 4:20 PM EST documented in this encounter Results * Multiple labs (01/14/2025 4:20 PM EST) us Not In System Ref Prov MD IMAGING Final Res ult MANUALLY TRANSCRIBED RESULTS documented in this encounter Visit Diagnoses Not on filedocumented in this encounter Additional Health Concerns Assessment Noted Time PHQ-9 Depression Total Score: 0 01/26/20 11:28 AM EST documented as of this encounter Care Teams Well Control Instructor Relationship Specialty Start Date End Date Sashca Larsen DO [address] [place] [address] PCP - General Family Medicine 09/23/22 documented as of this encounter
--- OUTSIDE RECORDS SUMMARY | 2025-04-22 07:44 | XMS_ITS | Encounter Summary ---
Author Organization [facility] Address [address] [place] [address] Phone Care Team Providers Care Trade Show Coordinator Name Role Phone Sascha Larsen DO Primary Care Provider Encounter Details Date Type Department Care Team (Late st Contact Info) Description 04/08/2023 Orders Only [facility] [address] [place] [address] Conversion, Onbase Social History Tobacco Use Types [...] r Schedule OUTSIDE LAB SCAN Lab Ordered: 04/08/2023 documented as of this encounter Visit Diagnoses Not on filedocumented in this encounter Care Teams Trade Show Coordinator Relationship Specialty Start Date End Date Sascha Larsen DO PCP - General 03/30/23 documented as of this encounter
--- OUTSIDE RECORDS SUMMARY | 2025-04-22 07:45 | XMS_ITS | Encounter Summary ---
Author Organization [email or web address] Sys tem Address [id number] [address] [place] [address] Care Team Providers Care Charge Preparation Technician Name Role Phone Sascha Larsen DO Primary Care Provider + [phone] Encounter Details Date Type Department Care Team ([facility] Contact Info) Description 11/03/2022 Orders Only [facility] - Family Medicine [address] [place] [address] External, Scanning Provider Social History Tobacco Use Types Packs/Day Years Used Date Smoking Tobacco: Former Cigarettes Passive Smoke Exposure: Past Smokeless Tobacco: Never Alcohol Use Standard Drinks/Week Comments Not Currently 0 (1 standard drink = 0.6 oz pur e alcohol) Childcare Answer Date Recorded Childcare Unknown 05/02/2019 Employment Answer Date Recorded Employment Unknown 05/02/2019 Sex and Gender Information Value Date Recorded Sex Assigned at Not on file Legal Sex Male 11:34 AM EDT Gender Identity Not on file Sexual Orientation Not on file COVID-19 Exposure Response Date Recorded In the last month, have you been in contact with someone who was confirmed or suspected to have Coronavirus / COVID-19? No / Unsure 11/05/2022 10:42 AM EST documented as of this encounter Plan of Treatment Upcoming Encounters Date Type Department Care Team (Late Contact Info) Description 05/07/2025 9:40 AM EDT Office Visit [facility] - Family Medicine [address] [place] [address] documented as of this encounter Procedures Procedure Name Priority Date/Time Associated Diagnosis Comments MULTIPLE LABS Routine 10/26/2022 documented in this encounter Results * Multiple labs (10/26/2022) 10/26/2022 us Scanning Provider External IN IMAGING Final Result MANUALLY TRANSCRIBED RESULTS documented in this encounter Visit Diagnoses Not on filedocumented in this encounter Care Teams Charge Preparation Technician Relationship Specialty Start Date End Date Sascha Larsen DO [address] [place] [address] PCP - General Family Medicine 09/23/22 documented as of this encounter
--- OUTSIDE RECORDS SUMMARY | 2025-04-22 07:45 | XMS_ITS | Clinical Summary ---
Author Organization [facility] Address [address] [place], [place] [id number] Care Team Providers Care Job Lithographer Name Role Phone Unavailable Primary Care Provider Unavailabl e Allergies Active Allergy Reactions Criticality Noted Date Comments Aspirin, Buffered GI Upset 04/25/2018 Cephalexin Unknown 04/25/2018 Oxycodone Mental Status Change 04/25/2018 Sulfa (Sulfonamide Antibiotics) Rash 03/2018 Medications aspirin 325 mg tablet Take 325 mg by mouth once daily. Active acetaminophen (TYLENOL) 500 mg tablet Take 1,000 mg by mouth twice daily. Active leflunomide (ARAVA) 10 mg tablet Take 10 mg by mouth once daily. Active hydroxychloroqu ine (PLAQUENIL) 200 mg tablet Take by mouth twice daily. Active methotrexate (XATMEP) 2.5 mg/mL oral liquid Take 2.5 mg by mouth every Tuesday. Active nabumetone (RELAFEN) 750 mg tablet Take 750 mg by mouth twice daily. Active leucovorin (LEUCOVORIN) 5 mg tablet Take 5 mg by mouth. Active Omeprazole Magnesium 20 mg cpDR Take by mouth. Active OMEPRAZOLE ORAL Take 20 mg by mouth twice daily at 6AM and 9PM. Active folic acid 1 mg tablet Take 1 mg by mouth once daily. Active montelukast (SINGULAIR) 10 mg tablet Take 10 mg by mouth once daily. Active simvastatin (ZOCOR) 20 mg tablet Take 10 mg by mouth daily at bedtime. Active lisinopril (ZESTRIL, PRINIVIL) 10 mg tablet Take 10 mg by mouth once daily. Active tamsulosin ER (FLOMAX) 0.4 mg cp24 Take 1 capsule by mouth daily at bedtime for 7 days. 7 capsule 04/25/2018 Active Social History Tobacco Use Types Packs/Day Years Used Date Smoking Tobacco: Former Smokeless Tobacco: Never Alcohol Use Standard Drinks/Week Comments No 0 (1 standard drink = 0.6 oz pur e alcohol) Sex and Gender Information Value Date Recorded Sex Assigned at Not on file Legal Sex Male 8:45 AM EST Gender Identity Not on file Sexual Orientation Not on file Last Filed Vital Signs Vital Sign Reading Time Taken Comments Blood Pressure 116/70 04/25/2018 6:22 AM EDT Pulse 79 04/25/2018 6:22 AM EDT Temperature 36.4 C (97.5 F) 04/25/2018 2:51 AM EDT Respiratory Rate 16 04/25/2018 6:22 AM EDT Oxygen Saturation 95% 04/25/2018 6:22 AM EDT Inhaled Oxygen Concentration - - Weight 95.3 kg (210 lb) 04/25/2018 2:51 AM EDT Height 172.7 cm (5' 8 ) 04/25/2018 2:51 AM EDT Body Mass Index 31.93 04/25/2018 2:51 AM EDT Plan of Treatment Not on file
--- OUTSIDE RECORDS SUMMARY | 2025-04-22 07:45 | XMS_ITS | Encounter Summary ---
Author Organization [employer] [facility] tem Address [id number] [address] [place] [address] Care Team Providers Care Commercial Counsel Name Role Phone Sascha Larsen DO Primary Care Provider + [phone] Encounter Details Date Type Department Care Team ([facility] Contact Info) Description 03/22/2023 Orders Only [facility] - Family Medicine [address] [place] [phone] External, Scanning Provider Social History Tobacco Use [...] Upcoming Encounters Date Type Department Care Team ([facility] Contact Info) Description 05/07/2025 9:40 AM EDT [facility] [address] [place] [phone] documented as of this encounter Procedures Procedure Name Priority Date/Time Associated Diagnosis Comments NUC STRESS EXERCISE Routine 03/22/2023 documented in this encounter Results * Nuc stress exercise (03/22/2023) Anatomical Region Laterality Modality Chest N/A Nuclear Medicine us Scanning Provider External CV STRESS ORDERABLES Final Result documented in this encounter Visit Diagnoses Not on filedocumented in this encounter Care Teams Commercial Counsel Relationship Specialty Start Date End Date Sascha Larsen DO [address], [email or web address] [place] [address] PCP - General Family Medicine 09/23/22 documented as of this encounter
--- OUTSIDE RECORDS SUMMARY | 2025-04-22 07:45 | XMS_ITS | Encounter Summary ---
Author Organization [employer] [facility] tem Address [id number] [address] [place] [address] Care Team Providers Care Job Checker Name Role Phone Sascha Larsen DO Primary Care Provider + [phone] Encounter Details Date Type Department Care Team ([facility] Contact Info) Description 03/23/2023 Orders Only [facility] - Family Medicine [address] [place] [address] External, Scanning Provider Social History Tobacco Use [...] Upcoming Encounters Date Type Department Care Team ([facility] Contact Info) Description 05/07/2025 9:40 AM EDT [facility] [address] [place] [phone] documented as of this encounter Procedures Procedure Name Priority Date/Time Associated Diagnosis Comments NUC STRESS 2 DAY LEXISCAN/EXERCISE Routine 03/23/2023 documented in this encounter Results * Nuc stress 2 day Lexiscan / exercise (03/23/2023) Anatomical Region Laterality Modality Chest N/A Nuclear Medicine us Scanning Provider External CV STRESS ORDERABLES Final Result documented in this encounter Visit Diagnoses Not on filedocumented in this encounter Care Teams Job Checker Relationship Specialty Start Date End Date Sascha Larsen DO [address], [facility] [address] PCP - General Family Medicine 09/23/22 documented as of this encounter
--- OUTSIDE RECORDS SUMMARY | 2025-04-22 07:45 | XMS_ITS | Encounter Summary ---
Author Organization [facility] Address [id number] [address] [place] [address] Care Team Providers Care Tobacco Weigher Name Role Phone Sascha Larsen DO Primary Care Provider + [phone] Reason for Visit * Reason Comments Med Refill Encounter Details Date Type Department Care Team (Late Contact Info) Description 03/12/2023 Refill [facility] - Family Medicine [address] [place] [address] Sascha Larsen DO [address] [place] [address] Social History Tobacco Use Types Packs/Day Years [...] encounter Miscellaneous Notes * Telephone Encounter - Sascha Larsen DO - 03/12/2023 10:06 AM EDT He is due for wellness after 04/13 documented in this encounter Plan of Treatment Upcoming Encounters Date Type Department Care Team (Late Contact Info) Description 05/07/2025 9:40 AM EDT Office Visit [facility] - Family Medicine [address] [place] [address] documented as of this encounter Visit Diagnoses Not on filedocumented in this encounter Care Teams Tobacco Weigher Relationship Specialty Start Date End Date Sascha Larsen DO [address], [place] [place] [address] PCP - General Family Medicine 09/23/22 documented as of this encounter
--- OUTSIDE RECORDS SUMMARY | 2025-04-22 07:45 | XMS_ITS | Encounter Summary ---
Author Organization [employer] s tem Address [id number] [address] [place] [address] Care Team Providers Care Aircraft Restorer Name Role Phone Sascha Larsen DO Primary Care Provider + [phone] Encounter Details Date Type Department Care Team (Late st Contact Info) Description 01/27/2024 Orders Only [facility] - Family Medicine [address] [place] [address] Sascha Larsen DO [address] [place] [address] Social History Tobacco Use Types Packs/Day Years Used Date Smoking Tobacco: Former Cigarettes Passive Smoke Exposure: Past Smokeless Tobacco: Never Alcohol Use Standard Drinks/Week Comments Not Currently 0 (1 standard drink = 0.6 oz pur e alcohol) Social Connection and Isolat ion Panel [NHANES] Answer Date Recorded In a typical week, how many times do you talk on the phone with family, friends, or neighbors? Once a week 04/14/2023 How often do you get togethe r with friends or relatives? Once a week 04/14/2023 How often do you attend chur ch or mormonism services? More than 4 times per year 04/14/2023 Do you belong to any clubs o r organizations such as sikh groups, unions, fraternal or athletic groups, or [...] 04/14/2023 PHQ-2 Answer Date Recorded Total Score 3 12/14/2023 [facility] of Occupat ional Health - Occupational Stress [...] to strenuous exercise (like a brisk walk)? 4 days 03/28/2023 On average, how many minutes do you engage in exercise at this level? 20 min 03/28/2023 PRAPARE - Transportation Answer Date Re corded [...] Recorded Do you need help finding a [facility] and/or a training program? No 04/14/2023 Hunger Screening Answer Date Recorded Within the past 12 months we worried whether our food would run out before we got money to buy more. Never True 12/14/2023 Within the past 12 months th e food we bought just didn't last and we didn't have money to get more. Never True 12/14/2023 Purpose - Life Answer Date Recorded I [...] - Family Medicine [address] [place] [address] documented as of this encounter Procedures Procedure Name Priority Date/Time Associated Diagnosis Comments MULTIPLE LABS Routine 01/18/2024 10:08 AM EST documented in this encounter Results * Multiple labs (01/18/2024 10:08 AM EST) us Scanning Provider External [place] IMAGING Final Result MANUALLY TRANSCRIBED RESULTS documented in this encounter Visit Diagnoses Not on filedocumented in this encounter Additional Health Concerns Assessment Noted Time PHQ-9 Depression Total Score: 3 12/14/19 24 9:29 AM EST documented as of this encounter Care Teams Aircraft Restorer Relationship Specialty Start Date End Date Sascha Larsen DO [address] [place] [address] PCP - General Family Medicine 09/23/22 documented as of this encounter
--- OUTSIDE RECORDS SUMMARY | 2025-04-22 07:45 | XMS_ITS | Encounter Summary ---
Author Organization [facility] Address [facility][id number] [address] [place] [address] Care Team Providers Care Belt Operator Name Role Phone Sascha Larsen DO Primary Care Provider + [phone] Encounter Details Date Type Department Care Team (Late st Contact Info) Description 03/30/2023 Orders Only [facility] - Family Medicine [address] [place] [phone] Minerva Saini CMA Chest pain, unspecified type Social History Tobacco Use Types Packs/Day Years Used Date Smoking Tobacco: Former Cigarettes Passive Smoke Exposure: Past Smokeless Tobacco: Never Alcohol Use Standard Drinks/Week Comments Not Currently 0 (1 standard drink = 0.6 oz pur e alcohol) AUDIT-C Answer Date Recorded Q1: How often do you have a drink containing alcohol? Never 03/28/2023 Q2: How many drinks containi ng alcohol do you have on a typical day when you are drinking? Patient does not drink Q3: How often do you have si x or more drinks on one occasion? Never 03/28/2023 PHQ-2 Answer Date Recorded Total Score 0 03/28/2023 Exercise Vital Sign Answer Date Recorde d On average, how many days pe r week do you engage in moderate to strenuous exercise (like a brisk walk)? 4 days 03/28/2023 On average, how many minutes do you engage in exercise at this level? 20 min 03/28/2023 Childcare Answer Date Recorded Childcare Unknown 05/02/2019 [...] - Family Medicine [address] [place] [address] documented as of this encounter Procedures Procedure Name Priority Date/Time Associated Diagnosis Comments AMB REFERRAL TO CARDIOLOGY Routine 03/30/2023 4:31 PM EDT Chest pain, unspecified type NUC STRESS LEXISCAN Routine 03/22/2023 documented in this encounter Results * Ambulatory referral to Cardiology (03/30/2023 4:31 PM EDT) us Sascha Larsen DO OUTPATIENT REFERRAL ORDERABL ES Edited Result - Final MANUALLY TRANSCRIBED RESULTS * Nuc stress Lexiscan (03/22/2023) Anatomical Region Laterality Modality Chest N/A Nuclear Medicine us Scanning Provider External CV STRESS ORDERABLES Final Result documented in this encounter Visit Diagnoses Diagnosis Chest pain, unspecified type documented in this encounter Additional Health Concerns Assessment Noted Time PHQ-9 Depression Total Score: 0 03/28/20 23 11:33 AM EDT documented as of this encounter Care Teams Belt Operator Relationship Specialty Start Date End Date Sascha Larsen DO [address] [place] [address] PCP - General Family Medicine 09/23/22 documented as of this encounter
--- OUTSIDE RECORDS SUMMARY | 2025-04-22 07:45 | XMS_ITS | Encounter Summary ---
Author Organization [facility] Address [id number] [address] [place] [address] Care Team Providers Care Dance Historian Name Role Phone Sascha Larsen DO Primary Care Provider + [phone] Encounter Details Date Type Department Care Team ([facility] Contact Info) Description 03/21/2023 [facility] [address] [place] [address] External, Scanning Provider Social History Tobacco Use [...] Description 05/07/2025 9:40 AM EDT [facility] [address] [place] [address] documented as of this encounter Procedures Procedure Name Priority Date/Time Associated Diagnosis Comments ECG 12-LEAD Routine 03/21/2023 documented in this encounter Results * ECG 12 lead (03/21/2023) us Scanning Provider External ECG ORDERABLES Final Result Performing Organization Address City/State/[facility] Co de Phone Number MANUALLY TRANSCRIBED RESULTS documented in this encounter Visit Diagnoses Not on filedocumented in this encounter Care Teams Dance Historian Relationship Specialty Start Date End Date Sascha Larsen DO [address] [place] [address] PCP - General Family Medicine 09/23/22 documented as of this encounter
--- OUTSIDE RECORDS SUMMARY | 2025-04-22 07:45 | XMS_ITS | Encounter Summary ---
Author Organization [facility] Address [id number] [address] [place] [address] Care Team Providers Care Commercial Construction Superintendent Name Role Phone Sascha Larsen DO Primary Care Provider + [phone] Encounter Details Date Type Department Care Team (Late st Contact Info) Description 03/31/2023 Orders Only [facility] - Family Medicine [address] [place] [address] External, Scanning Provider Social History Tobacco Use [...] - Family Medicine [address] [place] [address] documented as of this encounter Procedures Procedure Name Priority Date/Time Associated Diagnosis Comments MULTIPLE LABS Routine 03/31/2023 documented in this encounter Results * Multiple labs (03/31/2023) us Scanning Provider External [place] IMAGING Final Result MANUALLY TRANSCRIBED RESULTS documented in this encounter Visit Diagnoses Not on filedocumented in this encounter Additional Health Concerns Assessment Noted Time PHQ-9 Depression Total Score: 0 03/28/20 23 11:33 AM EDT documented as of this encounter Care Teams Commercial Construction Superintendent Relationship Specialty Start Date End Date Sascha Larsen DO [address] [place] [address] PCP - General Family Medicine 09/23/22 documented as of this encounter
--- OUTSIDE RECORDS SUMMARY | 2025-04-22 07:45 | XMS_ITS | Encounter Summary ---
Author Organization [employer] Address [id number] [address] [place] [address] Care Team Providers Care Closet Organizer Name Role Phone Sascha Larsen DO Primary Care Provider + [phone] Reason for Visit * Reason Comments Med Refill Encounter Details Date Type Department Care Team (Late Contact Info) Description 09/27/2022 Refill [facility] - Family Medicine [address] [place] [address] Sascha Larsen DO [address], [facility] [place] [address] Social History Tobacco Use Types Packs/Day Years Used Date Smoking Tobacco: Never Assessed Childcare Answer Date Recorded Childcare Unknown 05/02/2019 [...] have Coronavirus / COVID-19? No / Unsure 09/29/2022 9:44 AM EST documented as of this encounter Plan of Treatment Upcoming Encounters Date Type Department Care Team (Late Contact Info) Description 05/07/2025 9:40 AM EDT Office Visit [facility] - Family Medicine [address] [place] [address] documented as of this encounter Visit Diagnoses Not on filedocumented in this encounter Care Teams Closet Organizer Relationship Specialty Start Date End Date Sascha Larsen, DO [address] [facility], [place] [address] PCP - General Family Medicine 09/23/22 documented as of this encounter
--- OUTSIDE RECORDS SUMMARY | 2025-04-22 07:45 | XMS_ITS | Clinical Summary ---
Author Organization [facility] Address [address] [place] [address] Care Team Providers Care Tinter Photograph Name Role Phone AquilesSascha keen Primary Care Provider Allergies Active Allergy Reactions Criticality Noted Date Comments Aspirin Buf(Bwdjqa-Ggmhvq-Ufj) Other (See Comments) 10/13/2015 Abdominal pain Cephalosporins 05/20/2014 Sulfa Antibiotics 05/20/2014 Medications Aspirin Buf,AlHyd-MgHy d-CaCar, (BUFFERED ASPIRIN) 325 MG TABS Take 325 mg by mouth Daily Active hydroxychloroq uine (PLAQUENIL) 200 MG tablet Take 200 mg by mouth 2 times daily. Active folic acid (FOLVITE) 1 MG tablet Take 1 mg by mouth daily. Active methotrexate (RHEUMATREX) 1 G chemo injection Infuse intravenously once. Active methotrexate (RHEUMATREX) 25 MG/ML chemo syringe Inject 25 mg into the skin once a week. Active traMADol (ULTRAM) 50 MG tablet Take 50 mg by mouth every 6 hours as needed for Pain. Active prednisoLONE acetate (PRED FORTE) 1 % ophthalmic suspension 1 drop as needed. A ctive nabumetone (RELAFEN) 750 MG tablet Take 750 mg by mouth 2 times daily. Active omeprazole (PRILOSEC) 20 MG capsule Take 40 mg by mouth daily Active leucovorin calcium (WELLCOVORIN) 5 MG tablet Take 5 mg by mouth once a week Active montelukast (SINGULAIR) 10 MG tablet Take 10 mg by mouth nightly. 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 Social History Tobacco Use Types Packs/Day Years Used Date Smoking Tobacco: Former Alcohol Use Standard Drinks/Week Comments No 0 (1 standard drink = 0.6 oz pur e alcohol) Sex and Gender Information Value Date Recorded Sex Assigned at Not on file Legal Sex Male 6:01 PM EST Gender Identity Not on file Sexual Orientation Not on file Last Filed Vital Signs Vital Sign Reading Time Taken Comments Blood Pressure 121/66 10/13/2015 11:55 AM EST Pulse 63 10/13/2015 11:55 AM EST Temperature 36.6 C (97.9 F) 10/13/2015 10:33 AM EST Respiratory Rate 20 10/13/2015 11:55 AM EST Oxygen Saturation 98% 10/13/2015 11:55 AM EST Inhaled Oxygen Concentration - - Weight 95.3 kg (210 lb) 10/13/2015 10:33 AM EST Height 175.3 cm (5' 9 ) 10/13/2015 10:33 AM EST Body Mass Index 31.01 10/13/2015 10:33 AM EST Plan of Treatment Health Maintenance Due Date Last Done Comments Depression Screen 1969 Hepatitis C screen 1975 Lipids 1997 Colonoscopy 2002 Colorectal Cancer Screen 2002 FIT/FOBT: Average risk 2002 Fecal-DNA (Cologuard): Average risk 2002 Sigmoidoscopy/CT colonography 2002 AAA screen 2022 COVID-19 Vaccine ( season) 2024 10/08/2022, 09/23/2021, 01/26/2021 Flu vaccine (Season Ended) 06/21/202512/05, 09/07/2022, 07/28/2021, Additional history exists Respiratory Syncytial Virus (RSV) or age 60 yrs+ (1 - 1-dose 75+ series) 2032 DTaP/Tdap/Td vaccine (3 - Td or Tdap) 05/20/2033 05/20/2023, 12/05/2012 Shingles vaccine Completed 08/26/2019, 06/27/2019 Pneumococcal 0-49 years Vaccine Discontinued 04/16/2022, 09/16/2016, 12/05/2012 Pneumococcal 50+ years Vaccine Completed 04/16/2022, 09/16/2016, 12/05/2012 Hepatitis A vaccine Aged Out No longe r eligible based on patient's age to complete this topic Hepatitis B vaccine Aged Out No longe r eligible based on patient's age to complete this topic Hib vaccine Aged Out No longer eligi ble based on patient's age to complete this topic Meningococcal (ACWY) vaccine Aged Out No longer eligible based on patient's age to complete this topic Meningococcal B vaccine Aged Out No l onger eligible based on patient's age to complete this topic Polio vaccine Aged Out No longer elig ible based on patient's age to complete this topic Advance Directives * Full Code (Latest Code Status on File) Date Activated Date Inactivated Comments 10/13/2015 10:23 AM 10/13/2015 2:37 PM * Full Code Date Activated Date Inactivated Comments 05/20/2014 4:06 PM 05/20/2014 7:08 PM * Full Code Date Activated Date Inactivated Comments 05/20/2014 3:04 PM 05/20/2014 4:06 PM Care Teams Tinter Photograph Relationship Specialty Start Date End Date Sascha Larsen DO [address] [facility] [address] PCP - General 05/08/14
--- OUTSIDE RECORDS SUMMARY | 2025-04-22 07:45 | XMS_ITS | Encounter Summary ---
Author Organization [facility] [employer] Address [id number] [address] [place] [address] Care Team Providers Care Remanufacturing Technician Name Role Phone Sascha Larsen DO Primary Care Provider + [phone] Encounter Details Date Type Department Care Team (Late st Contact Info) Description 03/25/2023 Orders Only [facility] - Family Medicine [address] [place] [address] External, Scanning Provider Social History Tobacco Use [...] on file documented as of this encounter Functional Status * Audit-C Score Answer Date of Assessment Author 0 03/28/2023 11:59 AM EDT Sascha Larsen, DO * Question Answer Date of Assessment Author Q1: How often do you have a drink containing alcohol? Never 03/28/2023 11:59 AM EDT Sascha Larsen DO Q2: How many drinks containing alcohol do you have on a typical day when you are drinking? Patient does not drink 03/28/2023 11:59 AM EDT Sascha Larsen DO Q3: How often do you have six or more drinks on one occasion? Never 03/28/2023 11:59 AM EDT Sascha Larsen DO documented as of this encounter Plan of Treatment Upcoming Encounters Date Type Department Care Team (Late st Contact Info) Description 05/07/2025 9:40 AM EDT Office Visit [facility] - Family Medicine [address] [place] [address] documented as of this encounter Procedures Procedure Name Priority Date/Time Associated Diagnosis Comments ECHO 2.0 Routine 03/25/2023 documented in this encounter Results * Echo 2.0 (03/25/2023) Anatomical Region Laterality Modality Chest N/A Ultrasound us Scanning Provider External CV ECHO ORDERABLES Fi nal Result documented in this encounter Visit Diagnoses Not on filedocumented in this encounter Care Teams Remanufacturing Technician Relationship Specialty Start Date End Date Sascha Larsen DO [address] [place] [address] PCP - General Family Medicine 09/23/22 documented as of this encounter
--- OUTSIDE RECORDS SUMMARY | 2025-04-22 07:45 | XMS_ITS | Encounter Summary ---
Author Organization [employer] Address [id number] [address] [place] [address] Care Team Providers Care Rubber Block Layer Name Role Phone Sascha Larsen DO Primary Care Provider + [phone] Encounter Details Date Type Department Care Team ([facility] Contact Info) Description 10/11/2022 Orders Only [facility] - Family Medicine [address] [place] [address] Yenny Almaguer MA 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[facility]); Foot pain, left Social History Tobacco Use Types Packs/Day Years [...] Medicine - Family Medicine [address] [place] [address] documented as of this encounter Procedures Procedure Name Priority Date/Time Associated Diagnosis Comments XR FOOT LT MIN 3 VWS Routine 09/29/2022 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[facility]) Foot pain, left documented in this encounter Results * X-ray foot left minimum 3 views (09/29/2022) Anatomical Region Laterality Modality Lower Extremities, MSK, Foot Left Com puted Radiography 09/29/2022 Carole Ibrahim HEAVY FORGER-SYSTEMS ADMINISTRATOR IMG DIAGNOSTIC IMAGING DEEDEE PHAN Final Result documented in this encounter Visit Diagnoses Diagnosis Connective tissue disease Unspecified diffuse connective tissue disease Foot pain, left Pain in soft tissues of limb documented in this encounter Care Teams Rubber Block Layer Relationship Specialty Start Date End Date Sascha Larsen DO [address] [facility], [place] [address] PCP - General Family Medicine 09/23/22 documented as of this encounter
--- OUTSIDE RECORDS SUMMARY | 2025-04-22 07:45 | XMS_ITS | Encounter Summary ---
Author Organization [facility] Address [address] [place] [address] Care Team Providers Care Environmental Technical Officer Name Role Phone Arsenio Loera MD Unavailable Carlos Eden DO Unavailable [phone] Sascha Larsen MD Primary Care Provider + [phone] Encounter Details Date Type Department Care Team (Late st Contact Info) Description 07/28/2024 Abstract [facility] [address] [place] [address] Zandra Echevarria MA Social History Tobacco Use Types Packs/Day Years Used Date Smoking Tobacco: Former Cigarettes Smokeless Tobacco: Never Alcohol Use Standard Drinks/Week Comments Never 0 [...] Office Visit [facility] [address] [facility] [address] [place] [address] Phoebe Connell, LIVE IN HOUSEKEEPER NANNY [address], [facility] [address] [place] [address] 06/20/2025 10:00 AM EDT Procedure Visit [facility] [address] [facility] [address] [place] [address] Kali Terrazas, DPEduard [address] [facility] [address] [place] [address] 12/18/2025 1:45 PM EST Office Visit [facility] [place] [address] [place] [phone] Carlos Eden DO [address] [place] [address] documented as of this encounter Visit Diagnoses Not on filedocumented in this encounter Care Teams Environmental Technical Officer Relationship Specialty Start Date End Date Sascha Larsen MD [address] [facility] [place] [address] PCP - General Family Medicine 01/30/25 Arsenio Loera MD [address] [place] [address], [address] [place] [address] Referring Physician Neurosurgery 06/13/24 Carlos Eden DO [address] [place] [place] [address] Otolaryngology 06/13/24 documented as of this encounter
--- OUTSIDE RECORDS SUMMARY | 2025-04-22 07:45 | XMS_ITS | Encounter Summary ---
Author Organization [facility] [employer] [facility] [employer] Address [id number] [address] [place] [address] Care Team Providers Care Hot Repairman Name Role Phone Sascha Larsen Primary Care Provider + [phone] Encounter Details Date Type Department Care Team (Late st Contact Info) Description 12/20/2023 Telephone [facility] - Family Medicine [address] [place] [phone] AlanAlly edward, RAMIRO Social History Tobacco Use Types Packs/Day Years [...] How often do you attend chur or lutheran services? More than 4 times per year 04/14/2023 Do you belong to any clubs o r organizations such as jewish groups, unions, fraternal or athletic groups, or [...] you are drinking? Patient does not drink 3 Q3: How often do you have si x or more drinks on one occasion? Never 03/28/2023 Overall Financial Resource Strain (CARDIA) Answe r Date Recorded How hard is it for you to pa y for the very basics like food, housing, medical care, and heating? Not hard at all 04/14/2023 PHQ-2 Answer Date Recorded Total Score 3 12/14/2023 [facility] - Occupational Stress [...] Recorded Do you need help finding a [facility] and/or a training program? [...] - Family Medicine [address] [place] [address] documented as of this encounter Visit Diagnoses Not on filedocumented in this encounter Additional Health Concerns Assessment Noted Time PHQ-9 Depression Total Score: 3 12/14/19 24 9:29 AM EST documented as of this encounter Care Teams Hot Repairman Relationship Specialty Start Date End Date Sascha Larsen DO [address], [place] [address] PCP - General Family Medicine 09/23/22 documented as of this encounter
--- OUTSIDE RECORDS SUMMARY | 2025-04-22 07:45 | XMS_ITS | Clinical Summary ---
Author Organization [facility] Address [address] [place] [address] Care Team Providers Care Information Support Project Manager Name Role Phone Arsenio Loera MD Unavailable Carlos Eden DO Unavailable [phone] Sascha Larsen MD Primary Care Provider [phone] Allergies Active Allergy Reactions Criticality Noted Date Comments Aspirin Buf(Ffqdgo-Bnvptm-Aol) 10/13/2015 Other Reaction(s): Other (See Comments), Unknown Abdominal pain Calcium Carbonate GI intolerance 05/07/2023 Cephalexin 04/25/2018 Other Reaction(s): Unknown, Unknown, Unknown Reaction Cephalosporins Unknown 05/20/2014 Magnesium GI intolerance 05/07/2023 Oxycodone Hallucinations 04/25/2018 Other Reaction(s): Hallucinating, Mental Status Change, Unknown Sulfa Antibiotics Rash Low 05/20/2014 Other Reaction(s): Other (See Comments), Unknown Medications acetaminophen (Tylenol) 500 MG tablet Take by mouth 05/09/20 23 Active budesonide (Rhinocort AQ) 32 MCG/ACT nasal spray 62,500 sprays Acti ve colchicine 0.6 MG tablet 12/19/19 24 Active folic acid (Folvite) 1 MG tablet folic acid 1 mg tablet 05/09/20 23 Active hydroxychloroqu ine (Plaquenil) 200 MG tablet hydroxychloroquine 200 mg tablet TAKE 1 TABLET BY MOUTH TWICE A DAY 05/09/20 23 Active leucovorin (Wellcovorin) 5 MG tablet Take by mouth. Take with a full glass of water. Active traMADol (Ultram) 50 MG tablet Take by mouth Active montelukast (Singulair) 10 MG tablet Take by mouth Active simvastatin (Zocor) 20 MG tablet Take 20 mg by mouth at bedtime Active potassium bicarbonate (K-Lyte) 25 MEQ effervescent tablet Take by mouth Active methotrexate (Xatmep) 2.5 MG/ML oral solution Take 2.5 mg by mouth Active tamsulosin (Flomax) 0.4 MG 24 hr capsule Take 0.4 mg by mouth Daily 04/15/20 24 Active nabumetone (Relafen) 750 MG tablet Take 750 mg by mouth 0 24 Active prednisoLONE acetate (Pred-Forte) 1 % ophthalmic suspension 08/22/20 23 Active omeprazole (PriLOSEC) [address] capsule 10/11/20 24 Active Methotrexate Sodium (methotrexate PF) 50 MG/2ML syringe 10/08/20 24 Active meloxicam (Mobic) 15 MG tablet 08/29/20 24 Active lisinopril-hydr oCHLOROthiazide 20-12.5 MG tablet Take 1 tablet by mouth in the morning. 08/29/20 24 Active leflunomide (Arava) 10 MG tablet 07/23/20 24 Active biotin 10 MG capsuleIndicati ons:Intention tremor Take 1 capsule (10 mg) by mouth in the morning and 1 capsule (10 mg) before bedtime. 60 capsule 11 11/19/20 24 2024 Active dexAMETHasone (Decadron) 2 MG tabletIndicatio ns:Piriformis syndrome of right side Take 1 tablet by mouth once daily for 7 days. 7 tablet 1 03/21/20 25 Active primidone (Mysoline) 50 MG tabletIndicatio ns:Intention tremor Take 1 tablet (50 mg) by mouth Daily AND 3 tablets (150 mg) at bedtime. 360 tablet 3 03/21/20 25 2025 Active Active Problems Problem Noted Date Diagnosed Date Cough 10/15/2024 Osteoarthritis of right hip 10/15/2024 Right hip pain 10/15/2024 Shortness of breath 10/15/2024 Tremor of right hand 10/15/2024 Intention tremor 10/15/2024 ONIEL (acute kidney injury) 05/28/2024 Arthritis of facet joint of cervical spine 05/28 Arthritis of lumbosacral spine 05/28/2024 Calculus of lower third of ureter 05/28/2024 Cervical spondylosis with myelopathy 05/28/2024 Stenosis, cervical spine 05/28/2024 Chronic neck pain 05/28/2024 Chronic pain 05/28/2024 Cleft palate and cleft lip 05/28/2024 Compression of right ulnar nerve at multiple lev els 05/28/2024 DDD (degenerative disc disease), lumbar 05/28/20 Decreased hearing of both ears 05/28/2024 Dysphagia 05/28/2024 Eye cancer 05/28/2024 Lumbar radiculopathy 05/28/2024 History of kidney stones 05/28/2024 Hyperlipidemia 05/28/2024 Iritis 05/28/2024 Leukocytosis 05/28/2024 Lumbosacral stenosis with neurogenic claudicatio n 05/28/2024 Connective tissue disease 05/28/2024 Lupus 05/28/2024 Rheumatoid arthritis 05/28/2024 Osteoporosis 05/28/2024 Piriformis syndrome 05/28/2024 Prostate cancer screening 05/28/2024 Renal colic on left side 05/28/2024 Spondylolisthesis of lumbar region 05/28/2024 Thyroid mass of unclear etiology 05/28/2024 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 05/28/2024 BPH (benign prostatic hyperplasia) 05/28/2024 Gross hematuria 12/14/2023 Hydronephrosis 12/14/2023 Kidney stones 12/14/2023 Class 1 obesity due to exces s calories with serious comorbidity and body mass index (BMI) of 33.0 to 33.9 in adult 04/15/2023 Cleft palate 09/29/2022 Cluster headache 09/29/2022 Hearing loss 09/29/2022 Antiphospholipid syndrome 09/29/2022 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 Osteoarthritis of knee 09/29/2022 Carpal tunnel syndrome 08/02/2018 Allergic rhinitis 07/28/2017 Essential hypertension 04/26/2017 Actinic keratosis 02/12/2017 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 Glenoid labrum tear 11/21/2008 Rotator cuff syndrome of right shoulder 11/21/19 09 Traumatic rupture of biceps tendon 11/21/2008 Encounters Date Type Department Care Team Description 04/09/2025 4:10 PM EDT Procedure Visit [facility] [address] [place] [address] Kali Terrazas DPM Tenosynovitis of right lower leg (Primary Dx); Su splint, right, initial encounter; 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; Contracture of right ankle; Xerosis cutis; Pain due to onychomycosis of toenails of both feet 04/09/2025 Bamboo flowsheet [facility] [address] [place] [address] Kali Terrazas DPM 03/21/2025 Refill [facility] [address] [address] Zara John MA Intention tremor (Primary Dx) 03/20/2025 10:20 AM EDT Office Visit [facility] [address] [address] Junito Taylor MD Piriformis syndrome of right side (Primary Dx); Intention tremor 03/20/2025 Bamboo flowsheet [facility] [address] [place] [address] Junito Taylor MD 03/20/2025 Travel 03/04/2025 Telephone [facility] [address] [facility] [address] [place] [address] Marian Guajardo NP 02/21/2025 9:30 AM EDT Office Visit [facility] [address] [facility] [address] [place] [address] Kali Terrazas DPM Tenosynovitis of right lower leg (Primary Dx); Su splint, right, initial encounter; 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; Contracture of right ankle; Xerosis cutis 02/21/2025 Bamboo flowsheet [facility] [address] [facility] [address] [place] [address] Kali Terrazas DPM 02/21/2025 Travel 02/07/2025 10:00 AM EDT Office Visit [facility] [address] [place] [address] [place] [address] Kali Terrazas DPM Xerosis cutis (Primary Dx); Tenosynovitis of right lower leg; Su splint, right, initial encounter; Contracture of right ankle 02/07/2025 Bamboo flowsheet [facility] [address] [place] [address] Kali Terrazas DPM 02/07/2025 Travel 01/30/2025 4:40 PM EDT Office Visit [facility] [address] [place] [address] Kali Terrazas DPM Tenosynovitis of right lower leg (Primary Dx); 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; Xerosis cutis; Su splint, right, initial encounter; Contracture of right ankle 01/30/2025 Bamboo flowsheet [facility] [address] [place] [address] Kali Terrazas DPM 01/24/2025 11:20 AM EST Office Visit [facility] [address] [place] [address] Kali Terrazas DPM 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); Pronation deformity of both feet; Skin fissure 01/24/2025 Bamboo flowsheet [facility] [address] [place] [address] Kali Terrazas DPM 01/24/2025 Travel 01/22/2025 Telephone [facility] [address] [phone] Renée Roach R. EEG. T. 01/21/2025 Telephone [facility] [address] [phone] Kali Terrazas DPM from Last 3 Months Immunizations Immunization Administration Dates Next Due ABRYSVO - Respiratory syncyt ial virus (RSV), vaccine, bivalent, protein subunit RSV prefusion F, diluent reconstituted, 0.5 mL, PF 08/23/2023 Hep B, Adolescent or Pediatric 11/20/1990,1989 Influenza, High Dose Seasona l, Preservative Free 11/03/2024 Influenza, High-dose Seasona l, Quadrivalent, Preservative Free 08/23/2023,09/07/2022 Influenza, Unspecified 12/05/2022,09/09/2016 Influenza, injectable, MDCK, preservative free, quadrivalent 08/22/2020,09/05/2018,07/28/2017 Influenza, injectable, MDCK, quadrivalent 2018 Influenza, injectable, quadr ivalent, preservative free 07/28/2021 Pneumococcal Conjugate PCV 13 09/16/2016 Pneumococcal Conjugate PCV 20 04/16/2022 Pneumococcal Polysaccharide PPSV23 12/05/2012 SARS-CoV-2, Unspecified 10/08/2022 Tdap 05/20/2023,12/05/2012 Zoster, Recombinant 08/26/2019,06/27/2019 Family History Medical History Relation Name Comments Heart disease Father Hypertension Father Heart disease Mother Hypertension Mother Relation Name Status Comments Father Mother Social History Tobacco Use Types Packs/Day Years [...] Sign Reading Time Taken Comments Blood Pressure 122/64 03/20/2025 10:32 AM EDT Pulse 78 02/07/2025 10:07 AM EDT Temperature - - Respiratory Rate 16 04/09/2025 4:02 PM EDT Oxygen Saturation - - Inhaled Oxygen Concentration - - Weight 97.1 kg (214 lb) 04/09/2025 4:02 PM EDT Height 172.7 cm (5' 8 ) 04/09/2025 4:02 PM EDT Body Mass Index 32.54 04/09/2025 4:02 PM EDT Plan of Treatment Upcoming Encounters Date Type Department Care Team (Late st Contact Info) Description 05/15/2025 10:20 AM EDT Office Visit [facility] [address] [place] [address] [place] [address] Phoebe Connell, SCULPTURE INSTRUCTOR [address], [place] [address] [place] [address] 06/20/2025 10:00 AM EDT Procedure Visit [facility] [address] [place] [address] [place] [address] Kali Terrazas, DPEduard [address] [facility] [place] [address] [place] [address] 12/18/2025 1:45 PM EST Office Visit [facility] [address] [place] [address] Carlos Eden, DO [address] [place] [address] Health Maintenance Due Date Last Done Comments CT Colonography 1957 Colonoscopy 1957 Colorectal Cancer Screening 1957 FIT-DNA 1957 FIT 1957 FOBT 1957 Sigmoidoscopy 1957 Pneumococcal Vaccine: 65+ Years Completed 09/06/2024, 04/16/2022, 09/16/2016, Additional history exists Influenza Vaccine Completed 11/03/2024, , 12/05/2022, Additional history exists Insurance MEDICARE [employer] Care Teams Information Support Project Manager Relationship Specialty Start Date End Date Sascha Larsen MD [address] [facility] [place] [address] PCP - General Family Medicine 01/30/25 Arsenio Loera MD [address] [place] [address], [address] [place], [place] [id number] Referring Physician Neurosurgery 06/13/24 Carlos Eden DO [address] [place] [address] Otolaryngology 06/13/24
--- OUTSIDE RECORDS SUMMARY | 2025-04-22 07:45 | XMS_ITS | Encounter Summary ---
Author Organization [employer] Address [id number] [address] [place] [address] Care Team Providers Care Jet Dyeing Machine Operator Name Role Phone Sascha Larsen Primary Care Provider + [phone] Encounter Details Date Type Department Care Team (Late st Contact Info) Description 04/11/2023 Orders Only [facility] - Family Medicine [address] [place] [phone] Brook May CMA Encounter for screening for malignant neoplasm of prostate; Essential hypertension; Hyperlipidemia, unspecified hyperlipidemia type Social History Tobacco Use Types Packs/Day [...] often do you attend chur ch or amish services? More than 4 times per year 04/14/2023 Do you belong to any clubs o r organizations such as anabaptism groups, unions, fraternal or athletic groups, or [...] PHQ-2 Answer Date Recorded Total Score 0 04/15/2023 [facility] of Occupat ional Health - Occupational Stress [...] Recorded Do you need help finding a [facility] career center and/or a training program? No 04/14/2023 Hunger Screening Answer Date Recorded Within the past 12 months we worried whether our food would run out before we got money to buy more. Never True 04/15/2023 Within the past 12 months th e food we bought just didn't last and we didn't have money to get more. Never True 04/15/2023 Purpose - Life Answer Date Recorded I have a purpose and direction in my life. He gly Agree 04/14/2023 Sex and Gender Information Value Date Recorded Sex Assigned at Not on file Legal Sex Male 11:34 AM EDT Gender Identity Not on file Sexual Orientation Not on file documented as of this encounter Functional Status * Intimate Partner Violence Question Answer Date of Assessment Author Within the last year, have y ou been humiliated or emotionally abused in other ways by your partner or ex-partner? No 04/14/2023 1:14 PM EDT Beverly Larsen Within the last year, have y ou been afraid of your partner or ex-partner? No 04/14/2023 1:14 PM EDT Beverly Larsen Within the last year, have y ou been raped or forced to have any kind of sexual activity by your partner or ex-partner? No 04/14/2023 1:14 PM EDT Beverly Larsen Within the last year, have y ou been kicked, hit, slapped, or otherwise physically hurt by your partner or ex-partner? No 04/14/2023 1:14 PM EDT Beverly Larsen documented as of this encounter Plan of Treatment Upcoming Encounters Date Type Department Care Team (Late st Contact Info) Description 05/07/2025 9:40 AM EDT Office Visit [facility] - Family Medicine [address] [place] [address] documented as of this encounter Procedures Procedure Name Priority Date/Time Associated Diagnosis Comments PROSTATIC SPECIFIC ANTIGEN SCREEN Routine 04/08/2023 Encounter for screening for malignant neoplasm of prostate LIPID PROFILE Routine 04/08/2023 Hyperlipidemia, unspecified hyperlipidemia type COMPREHENSIVE METABOLIC PANEL Routine 04/08/2023 Essential hypertension documented in this encounter Results * (ABNORMAL) Lipid panel (04/08/2023) External Cholesterol 119(A) 140 - 200 MANUALLY TRANSCRIBED RESULTS External Cholesterol:Hdl 3.1 0 - 5 MANUALLY TRANSCRIBED RESULTS External Hdl Cholesterol 39 29 - 71 MANUALLY TRANSCRIBED RESULTS External Ldl (Calc) 55 0 - 100 MANUALLY TRANSCRIBED RESULTS External Triglycerides 125 0 - 149 MANUALLY TRANSCRIBED RESULTS External Very Low Lipoprotein 25 MANUALLY TRANSCRIBED RESULTS Blood 04/08/2023 Sascha Larsen DO LAB BLOOD ORDERABLES Edited Result - Final Performing Organization Address City/[facility] Co de Phone Number MANUALLY TRANSCRIBED RESULTS * (ABNORMAL) Comprehensive metabolic panel (04/08/2023) External Albumin 4 3.5 - 5.7 MAN UALLY TRANSCRIBED RESULTS External Alt Sgpt 33 7 - 52 MANUALLY TRANSCRIBED RESULTS External Anion Gap 1.9 MANUALLY TRANSCRIBED RESULTS External Ast 19 13 - 39 MANUALL Y TRANSCRIBED RESULTS External Blood Urea Nitrogen Bun 17 7 - 25 MANUALLY TRANSCRIBED RESULTS External Calcium Ca 8.8 8.6 - 10.3 MANUALLY TRANSCRIBED RESULTS External Chloride 4.1 3.5 - 5.1 MANUALLY TRANSCRIBED RESULTS External Co2 / Carbon Dioxide 28.1 21 - 31 MANUALLY TRANSCRIBED RESULTS External Creatinine 0.85 0.70 - 1.30 MANUALLY TRANSCRIBED RESULTS External Gfr Amer >60 >60 MANUALLY TRANSCRIBED RESULTS External Gfr Non Amer >60 >60 MANUALLY TRANSCRIBED RESULTS External Alkaline Phosphatase 82 34 - 104 MANUALLY TRANSCRIBED RESULTS External Glucose Fasting Or Random (Fbs) 85 70 - 100 MANUALLY TRANSCRIBED RESULTS External Potassium K 4.1 3.5 - 5.1 MANUALLY TRANSCRIBED RESULTS External Sodium Na 140 136 - 145 MANUALLY TRANSCRIBED RESULTS Total Bilirubin 0.8 0.3 - 1.0 MANU ALLY TRANSCRIBED RESULTS External Total Protein 6.1(A) 6.4 - 8.9 MANUALLY TRANSCRIBED RESULTS Blood 04/08/2023 Sascha Larsen DO LAB BLOOD ORDERABLES Final R esult Performing Organization Address City/[facility]/ZIP Co de Phone Number MANUALLY TRANSCRIBED RESULTS * Prostatic specific antigen screen (04/08/2023) Psa 1.770 0 - 4.0 MANUALLY TRANSCRIBED RESULTS 04/08/2023 Sascha Larsen DO LAB BLOOD ORDERABLES Final R esult MANUALLY TRANSCRIBED RESULTS documented in this encounter Visit Diagnoses Diagnosis Encounter for screening for malignant neoplasm of prostate Essential hypertension Unspecified essential hypertension Hyperlipidemia, unspecified hyperlipidemia type documented in this encounter Additional Health Concerns Assessment Noted Time PHQ-9 Depression Total Score: 0 03/28/20 23 11:33 AM EDT documented as of this encounter Care Teams Jet Dyeing Machine Operator Relationship Specialty Start Date End Date Sascha Larsen DO [address] [facility], [place] [place] [address] PCP - General Family Medicine 09/23/22 documented as of this encounter
--- OUTSIDE RECORDS SUMMARY | 2025-04-22 07:45 | XMS_ITS | Encounter Summary ---
Author Organization [employer] Address [id number] [address] [place] [address] Care Team Providers Care Antique Refinisher Name Role Phone Sascha Larsen DO Primary Care Provider + [phone] Encounter Details Date Type Department Care Team (Late Contact Info) Description 10/11/2022 Orders Only [facility] - Family Medicine [address] [place] [address] Carole Ibrahim, HORSE AND WAGON DRIVER-LUMBER MOVER [address] [place] [address] [place], [place] [id number] Social History Tobacco Use Types Packs/Day Years [...] Description 05/07/2025 9:40 AM EDT [facility] [address] [place] [address] documented as of this encounter Visit Diagnoses Not on filedocumented in this encounter Care Teams Antique Refinisher Relationship Specialty Start Date End Date Sascha Larsen DO [address], [facility] [place] [address] PCP - General Family Medicine 09/23/22 documented as of this encounter
--- OUTSIDE RECORDS SUMMARY | 2025-04-22 07:45 | XMS_ITS | Encounter Summary ---
Author Organization [facility] Address [address] [place] [address] Care Team Providers Care Fishing Guide Name Role Phone Arsenio Loera MD Unavailable Carlos Eden DO Unavailable [phone] Sascha Larsen MD Primary Care Provider [phone] Encounter Details Date Type Department Care Team (Late Contact Info) Description 04/09/2025 Bamboo flowsheet [facility] [address] [place] [address] Kali Terrazas, JODI [address] [facility] [address] [place] [address] Social History Tobacco Use Types Packs/Day Years [...] Department Care Team (Late Contact Info) Description 05/15/2025 10:20 AM EDT Office Visit [facility] [address] [facility] [address] [place] [address] Phoebe Connell, PUMP REBUILDER [address], [facility] [address] [place] [address] 06/20/2025 10:00 AM EDT Procedure Visit [facility] [address] [place] [phone] Kali Terrazas, DPM [address] [facility] [address] [place] [address] 12/18/2025 1:45 PM EST Office Visit [facility] [address] [place] [phone] Carlos Eden DO [address] [place] [address] documented as of this encounter Visit Diagnoses Not on filedocumented in this encounter Care Teams Fishing Guide Relationship Specialty Start Date End Date Sascha Larsen MD [address] [facility] [address] PCP - General Family Medicine 01/30/25 Arsenio Loera MD [address] [place] [address] [address] [place] [address] Referring Physician Neurosurgery 06/13/24 Carlos Eden DO [address] [place] [address] Otolaryngology 06/13/24 documented as of this encounter
--- OUTSIDE RECORDS SUMMARY | 2025-04-22 07:45 | XMS_ITS | Encounter Summary ---
Author Organization [employer] Address [id number] [address] [place] [address] Care Team Providers Care Manager Production Name Role Phone Sascha Larsen Primary Care Provider + [phone] Encounter Details Date Type Department Care Team (Late st Contact Info) Description 02/17/2024 Orders Only [facility] - Family Medicine [address] [place] [address] External, Scanning Provider Social History Tobacco Use [...] week 04/14/2023 How often do you attend [facility] or hinduism services? More than 4 times per year 04/14/2023 Do you belong to any clubs o r organizations such as caodaism groups, unions, fraternal or athletic groups, or [...] Answer Date Recorded Total Score 3 12/14/2023 [facility] of Occupat ional Health - Occupational [...] Medicine - Family Medicine [address] [place] [address] documented as of this encounter Procedures Procedure Name Priority Date/Time Associated Diagnosis Comments XR ABDOMEN AP 1 VW Routine 02/16/2024 8:52 AM EDT XR ABDOMEN AP 1 VW Routine 02/16/2024 8:50 AM EDT documented in this encounter Results * X-ray abdomen ap 1 view (02/16/2024 8:52 AM EDT) Anatomical Region Laterality Modality Body, Abdomen N/A Computed Radiogr aphy us Scanning Provider External IMG DIAGNOSTIC IMAGIN G ORDERABLES Final Result * X-ray abdomen ap 1 view (02/16/2024 8:50 AM EDT) Anatomical Region Laterality Modality Body, Abdomen N/A Computed Radiogr aphy us Scanning Provider External IMG DIAGNOSTIC IMAGIN G ORDERABLES Final Result documented in this encounter Visit Diagnoses Not on filedocumented in this encounter Additional Health Concerns Assessment Noted Time PHQ-9 Depression Total Score: 3 12/14/19 24 9:29 AM EST documented as of this encounter Care Teams Manager Production Relationship Specialty Start Date End Date Sascha Larsen DO [address] [place] [address] PCP - General Family Medicine 09/23/22 documented as of this encounter
--- OUTSIDE RECORDS SUMMARY | 2025-04-22 07:45 | XMS_ITS | Encounter Summary ---
Author Organization [employer] Address [facility] [id number] [address] [place] [address] Care Team Providers Care Pneumatic Jack Operator Name Role Phone Sascha Larsen Primary Care Provider + [phone] Encounter Details Date Type Department Care Team (Late st Contact Info) Description 11/23/2024 Telephone [facility] - Family Medicine [address] [place] [address] AlanAlly edward, RAMIRO Social History Tobacco Use Types Packs/Day Years Used Date Smoking Tobacco: Former Cigarettes Passive Smoke Exposure: Past Smokeless Tobacco: Never Alcohol Use Standard Drinks/Week Comments Not Currently 0 (1 standard drink = 0.6 oz pur e alcohol) [facility] Utilities Answer Date Recorded In the past 12 months has [email or web address], gas, oil, or water company threatened to [...] often do you attend chur ch or sikh services? More than 4 times per year 04/14/2023 Do you belong to any clubs o r organizations such as mormonism groups, unions, fraternal or athletic groups, or [...] Answer Date Recorded Total Score 0 09/24/2024 [facility] of Occupat ional Health - Occupational Stress [...] Recorded Do you need help finding a [facility] and/or a training program? [...] encounter Miscellaneous Notes * Telephone Encounter - Ally Phillips CMA - 11/23/2024 10:26 AM EST Pts called requesting his and her lab order sent to [facility] so they have their results for their upcoming appts documented in this encounter Plan of Treatment Upcoming Encounters Date Type Department Care Team (Late st Contact Info) Description 05/07/2025 9:40 AM EDT Office Visit [facility] - Family Medicine [address] [place] [phone] documented as of this encounter Visit Diagnoses Not on filedocumented in this encounter Additional Health Concerns Assessment Noted Time PHQ-9 Depression Total Score: 0 09/24/20 24 1:35 PM EST documented as of this encounter Care Teams Pneumatic Jack Operator Relationship Specialty Start Date End Date Sascha Larsen DO [address], [place] [address] PCP - General Family Medicine 09/23/22 documented as of this encounter
--- OUTSIDE RECORDS SUMMARY | 2025-04-22 07:45 | XMS_ITS | Encounter Summary ---
Author Organization [employer] Address [facility] [id number] [address] [place] [address] Care Team Providers Care Eligibility And Occupancy Interviewer Name Role Phone Sascha Larsen Primary Care Provider + [phone] Encounter Details Date Type Department Care Team (Late st Contact Info) Description 08/28/2024 Orders Only [facility] - Family Medicine [address] [place] [address] Ref Prov, [place] [address] Social History Tobacco Use Types Packs/Day Years Used Date Smoking Tobacco: Former Cigarettes Passive Smoke Exposure: Past Smokeless Tobacco: Never Alcohol Use Standard Drinks/Week Comments Not Currently 0 (1 standard drink = 0.6 oz pur e alcohol) [facility] Utilities Answer Date Recorded In the past 12 months has [employer], gas, oil, or water [employer] threatened to shut off services in your [...] often do you attend chur ch or episcopalian services? More than 4 times per year 04/14/2023 Do you belong to any clubs o r organizations such as quaker groups, unions, fraternal or athletic groups, or [...] PHQ-2 Answer Date Recorded Total Score 0 06/14/2024 [facility] - Occupational Stress Questionnaire Answer Date Recorded [...] Recorded Do you need help finding a [facility] career center and/or a training program? No 04/14/2023 Hunger Screening Answer Date Recorded Within the past 12 months we worried whether our food would run out before we got money to buy more. Never True 06/14/2024 Within the past 12 months th e food we bought just didn't last and we didn't have money to get more. Never True 06/14/2024 Purpose - Life Answer Date Recorded I [...] Medicine [address] [place] [address] documented as of this encounter Procedures Procedure Name Priority Date/Time Associated Diagnosis Comments XR ABDOMEN AP 1 VW Routine 08/27/2024 11:36 AM EDT documented in this encounter Results * X-ray abdomen ap 1 view (08/27/2024 11:36 AM EDT) Anatomical Region Laterality Modality Body, Abdomen N/A Computed Radiogr aphy us Not In System Ref Prov IMG DIAGNOSTIC IMAGING OR DERABLES Final Result documented in this encounter Visit Diagnoses Not on filedocumented in this encounter Additional Health Concerns Assessment Noted Time PHQ-9 Depression Total Score: 0 06/14/20 24 2:14 PM EDT documented as of this encounter Care Teams Eligibility And Occupancy Interviewer Relationship Specialty Start Date End Date Sascha Larsen DO [address] [place] [address] PCP - General Family Medicine 09/23/22 documented as of this encounter
--- OUTSIDE RECORDS SUMMARY | 2025-04-22 07:45 | XMS_ITS | Encounter Summary ---
Author Organization [employer] Address [facility] [id number] [address] [place] [address] Care Team Providers Care Director Of Dietary Name Role Phone Sascha Larsen Primary Care Provider + [phone] Encounter Details Date Type Department Care Team (Late st Contact Info) Description 10/02/2024 Telephone [facility] - Family Medicine [address] [place] [address] Kori Magana CMA Social History Tobacco Use Types Packs/Day Years Used Date Smoking Tobacco: Former Cigarettes Passive Smoke Exposure: Past Smokeless Tobacco: Never Alcohol Use Standard Drinks/Week Comments Not Currently 0 (1 standard drink = 0.6 oz pur e alcohol) [facility] Utilities Answer Date Recorded In the past 12 months has [employer], gas, oil, or water [employer] threatened to shut off services in your [...] often do you attend chur ch or judaism services? More than 4 times per year 04/14/2023 Do you belong to any clubs o r organizations such as voodoo groups, unions, fraternal or athletic groups, or [...] Answer Date Recorded Total Score 0 09/24/2024 [facility] of Occupat ional Health - [...] Recorded Do you need help finding a [facility] career center and/or a training program? [...] encounter Miscellaneous Notes * Telephone Encounter - Kori Magana CMA - 10/02/2024 8:36 AM EST Pt called. Still not feeling well. Coughing up white mucous and having drainage. Cancelling lithotripsy. Please advise. * Telephone Encounter - Sascha Larsen DO - 10/02/2024 8:36 AM EST Okay. I sent in a Z-Nicolas for him documented in this encounter Plan of Treatment Upcoming Encounters Date Type Department Care Team (Late st Contact Info) Description 05/07/2025 9:40 AM EDT Office Visit [facility] - Family Medicine [address] [place] [address] documented as of this encounter Visit Diagnoses Not on filedocumented in this encounter Additional Health Concerns Assessment Noted Time PHQ-9 Depression Total Score: 0 09/24/20 24 1:35 PM EST documented as of this encounter Care Teams Director Of Dietary Relationship Specialty Start Date End Date Sascha Larsen DO [address], [facility] [address] PCP - General Family Medicine 09/23/22 documented as of this encounter
--- OUTSIDE RECORDS SUMMARY | 2025-04-22 07:45 | XMS_ITS | Encounter Summary ---
Author Organization [employer] Address [facility] [id number] [address] [place] [address] Care Team Providers Care Correspondence Clerk Name Role Phone Sascha Larsen Primary Care Provider + [phone] Encounter Details Date Type Department Care Team (Late st Contact Info) Description 04/14/2023 Orders Only [facility] - Family Medicine [address] [place] [phone] Minerva Saini CMA Shortness of breath Social History Tobacco Use Types Packs/Day Years [...] week 04/14/2023 How often do you attend [facility] or orthodox services? More than 4 times per year 04/14/2023 Do you belong to any clubs o r organizations such as samaritan groups, unions, fraternal or athletic groups, or [...] Answer Date Recorded Total Score 0 04/15/2023 [facility] of Occupat ional Health - Occupational [...] Internal Medicine - Family Medicine [address] [place] [address] documented as of this encounter Procedures Procedure Name Priority Date/Time Associated Diagnosis Comments PULMONARY FUNCTION TEST Routine 04/14/2023 9:36 A M EDT Shortness of breath documented in this encounter Results * Pulmonary function test Complete PFT (Spirometry (Flow Volume Loop) w/ DLCO (diffusion study) and Lung Volume) (04/14/2023 9:36 AM EDT) us Sascha Larsen DO PFT ORDERABLES Final Result MANUALLY TRANSCRIBED RESULTS documented in this encounter Visit Diagnoses Diagnosis Shortness of breath documented in this encounter Additional Health Concerns Assessment Noted Time PHQ-9 Depression Total Score: 0 04/14/20 23 1:06 PM EDT documented as of this encounter Care Teams Correspondence Clerk Relationship Specialty Start Date End Date Sascha Larsen, DO [address] [facility], [place] [address] PCP - General Family Medicine 09/23/22 documented as of this encounter
--- OUTSIDE RECORDS SUMMARY | 2025-04-22 07:45 | XMS_ITS | Encounter Summary ---
Author Organization [facility] Address [facility] [id number] [address] [place] [address] Care Team Providers Care Drum Tester Name Role Phone Sascha Larsen DO Primary Care Provider + [phone] Encounter Details Date Type Department Care Team (Late st Contact Info) Description 12/16/2023 Orders Only [facility] - Family Medicine [address] [place] [address] Sascha Larsen DO [address] [place] [address] Social History Tobacco Use Types Packs/Day Years [...] often do you attend chur ch or advent services? More than 4 times per year 04/14/2023 Do you belong to any clubs o r organizations such as gnosticism groups, unions, fraternal or athletic groups, or [...] Answer Date Recorded Total Score 3 12/14/2023 [facility] of Occupat ional Health - [...] Recorded Do you need help finding a [facility] and/or a training [...] - Family Medicine [address] [place] [address] documented as of this encounter Procedures Procedure Name Priority Date/Time Associated Diagnosis Comments COLONOSCOPY Routine 06/15/2017 7:42 AM EDT HEPATITIS C(HCV) ANTIBODY W/REFLEX TO PCR Routine 09/08/2016 7:47 AM EDT documented in this encounter Results * HM COLONOSCOPY (06/15/2017 7:42 AM EDT) us Scanning Provider External HEALTH MAINTENANCE Fi nal Result Performing Organization Address City/[facility]/ZIP Co de Phone Number MANUALLY TRANSCRIBED RESULTS * Hepatitis C(HCV) Ab w/ Reflex to PCR (09/08/2016 7:47 AM EDT) us Scanning Provider External LAB BLOOD ORDERABLES Final Result Performing Organization Address [facility] Co de Phone Number MANUALLY TRANSCRIBED LAB RESULTS documented in this encounter Visit Diagnoses Not on filedocumented in this encounter Additional Health Concerns Assessment Noted Time PHQ-9 Depression Total Score: 3 12/14/19 24 9:29 AM EST documented as of this encounter Care Teams Drum Tester Relationship Specialty Start Date End Date Sascha Larsen DO [address] [place] [address] PCP - General Family Medicine 09/23/22 documented as of this encounter
--- OUTSIDE RECORDS SUMMARY | 2025-04-22 07:45 | XMS_ITS | Encounter Summary ---
Author Organization [employer] s tem Address [facility]-[id number] [address] [place] [address] Care Team Providers Care Machine Deburrer Name Role Phone Sascha Larsen DO Primary Care Provider + [phone] Encounter Details Date Type Department Care Team (Late st Contact Info) Description 12/19/2023 Orders Only [facility] Internal [facility] - Family Medicine [address] [place] [address] Sascha aLrsen DO [address], [place] [address] Midline low back pain without sciatica, unspecified chronicity Social History Tobacco Use Types Packs/Day Years [...] often do you attend chur ch or lutheran services? More than 4 times [...] Answer Date Recorded Total Score 3 12/14/2023 [facility] - Occupational [...] Recorded Do you need help finding a [facility] and/or a training program? [...] Medicine - Family Medicine [address] [place] [address] documented as of this encounter Procedures Procedure Name Priority Date/Time Associated Diagnosis Comments XR SPINE LUMBAR 2 OR 3 VWS Routine 12/15/2023 Midline low back pain without sciatica, unspecified chronicity documented in this encounter Results * X-ray spine lumbar 2 or 3 views (12/15/2023) Anatomical Region Laterality Modality MSK, Neuro, Spine, L-spine N/A Compu nat Radiography us Sascha Larsen DO IM DIAGNOSTIC IMAGING ORDER BEE Final Result documented in this encounter Visit Diagnoses Diagnosis Midline low back pain without sciatica, unspecified chronicity documented in this encounter Additional Health Concerns Assessment Noted Time PHQ-9 Depression Total Score: 3 12/14/19 24 9:29 AM EST documented as of this encounter Care Teams Machine Deburrer Relationship Specialty Start Date End Date Sascha Larsen DO [address] [place] [address] PCP - General Family Medicine 09/23/22 documented as of this encounter
--- NOTE | 2025-04-22 07:56 | XR_ITS ---
The [address] [address] Patient Name: MARVA TORRE MRN: [id number] date: 1955 Sex: M Assigned Patient Location: [facility] Current Patient Location: [facility] Accession/Order Number: [id number] Exam Date: 04/22/2025 08:51 Report Date: 04/22/2025 08:54 At the request of: JANET MUNIZ MD Procedure: XR abdomen 1V SINGLE VIEW ABDOMEN COMPARISON: 10/25/2024 CLINICAL DATA: Follow-up kidney stones. Supine views of the abdomen and pelvis were obtained. There is air and stool within the ascending colon. There is no dilated small bowel. No soft tissue masses are seen. There is redemonstration of a tiny 3 mm stone at the upper pole of the right kidney. No definite radiopaque stones are seen on the left or along the course of the ureters. There is levoscoliosis. Postoperative and degenerative changes are visualized. XR/XR abdomen 1V IMPRESSION: CONTINUED RIGHT NEPHROLITHIASIS. Impression dictated by: Christine Alexandra M.D. 04/22/2025 8:54 AM Dictation Location: [place] [address] Electronically authenticated by: [id number] Y Date: 04/22/2025 08:54
== END 2025-04-22 07:42 | disposition home or self-care (01) ==
LOC: RAD 07:42
PROVIDERS: PCP Family Medicine; Visit Provider Urology
DX: N20.0 Calculus of kidney (principal)
CPT/HCPCS: 74018

== ENCOUNTER 2025-06-07 12:19 | Emergency (ER) | payer MEDICARE, SELFPAY ==
--- OUTSIDE RECORDS SUMMARY | 2025-05-28 14:45 | XMS_ITS | Encounter Summary ---
Author Organization [facility] tem Address [facility]-[id number] [address] [place] [address] Care Team Providers Care Linen Controller Name Role Phone Sascha Larsen DO Primary Care Provider + [phone] Reason for Visit * Reason Comments PFT results Encounter Details Date Type Department Care Team (Late st Contact Info) Description 05/28/2025 2:45 PM EDT Office Visit [facility] Internal Medicine - Family Medicine [address] [place] [address] Sascha Larsen DO [address] [facility] [place] [address] Moderate persistent asthma, unspecified whether complicated (Primary Dx); Class 2 severe obesity due to excess calories with serious comorbidity and body mass index (BMI) of 35.0 to 35.9 in adult ([facility]) Social History Tobacco Use Types Packs/Day Years Used Date Smoking Tobacco: Former Cigarettes 0.5 12 0 05/28/1975 - 05/28/1987 Passive Smoke Exposure: Past Smokeless Tobacco: Never Tobacco Cessation:Counseling Given: Not Answered Alcohol Use Standard Drinks/Week Comments Not Currently 0 (1 standard drink = 0.6 oz pur e alcohol) [facility] Utilities Answer Date Recorded In the past 12 months has [employer], gas, oil, or water company threatened to [...] often do you attend chur ch or anabaptist services? More than 4 times per year 04/14/2023 Do you belong to any clubs o r organizations such as yazidi groups, unions, fraternal or athletic groups, or [...] PHQ-2 Answer Date Recorded Total Score 0 05/28/2025 [facility] Occupat ional Health - Occupational Stress [...] exercise (like a brisk walk)? 0 days 05/07/2025 On average, how many minutes do you engage in exercise at this level? 0 min 05/07/2025 PRAPARE - Transportation Answer Date Re corded [...] got money to buy more. Never True 05/28/2025 Within the past 12 months th e food we bought just didn't last and we didn't have money to get more. Never True 05/28/2025 Purpose - Life Answer Date Recorded I [...] Sign Reading Time Taken Comments Blood Pressure 118/60 05/28/2025 2:42 PM EDT Pulse 72 05/28/2025 2:42 PM EDT Temperature 36.4 C (97.5 F) 05/28/2025 2:42 PM EDT Respiratory Rate 20 05/28/2025 2:42 PM EDT Oxygen Saturation 96% 05/28/2025 2:42 PM EDT Inhaled Oxygen Concentration - - Weight 101.4 kg (223 lb 9.6 oz) 05/28/2025 2:42 PM EDT Height 170.2 cm (5' 7.01 ) 05/28/2025 2:42 PM ED T Body Mass Index 35.01 05/28/2025 2:42 PM EDT documented in this encounter Progress Notes * Sascha Larsen, DO - 05/28/2025 2:45 PM EDT Subjective Patient ID: Valentin Wong is a 70 y.o. male. Valentin presents to discuss his PFT's. They were ordered by his flake cutter operator and were abnormal. Hegets short of breath with minimal activity such as walking. He has to stop and rest. It happens multiple times a day. The following portions of the patient's history were reviewed and updated as appropriate: allergies, current medications, past family history, past medical history, past social history, past surgicalhistory, problem list, and medication reconciliation was completed including current medication andpost discharge medication. Review of Systems Objective Physical Exam Vitals reviewed. Cardiovascular: Rate and Rhythm: Normal rate and regular rhythm. Pulses: Normal pulses. Heart sounds: Normal heart sounds. No murmur heard. Pulmonary: Effort: Pulmonary effort is normal. No respiratory distress. Breath sounds: Normal breath sounds. No wheezing, rhonchi or rales. Neurological: General: No focal deficit present. Mental Status: He is alert and oriented to person, place, and time. Gait: Gait abnormal (ambulates with a cane). Psychiatric: Mood and Affect: Mood normal. Behavior: Behavior normal. Thought Content: Thought content normal. Judgment: Judgment normal. Assessment/Plan Valentin was seen today for pft results. Diagnoses and all orders for this visit: Moderate persistent asthma, unspecified whether complicated - budesonide-formoteroL (SYMBICORT) 80-4.5 mcg/actuation inhaler; Inhale 2 puffs in the morning and2 puffs before bedtime. PFTs were reviewed and showed a significant bronchodilator response. Different causes of reactive airway disease discussed. He is having symptoms multiple times a day. Will try Symbicort 80 2 puffs BID. Rinse mouth out after use. Class 2 severe obesity due to excess calories with serious comorbidity yes (BMI ) of 35.0 to 35.9 in adult Patient noted to have elevated BMI and the following intervention(s) were applied: encouragement toexercise and prescribed diet education. documented in this encounter Plan of Treatment Upcoming Encounters Date Type Department Care Team (Late st Contact Info) Description 05/13/2026 10:20 AM EDT Office Visit [facility] - Family Medicine [address] [place] [address] documented as of this encounter Visit Diagnoses Diagnosis Moderate persistent asthma, unspecified whether complicated- Primary Class 2 severe obesity due to excess calories with serious comorbidity and body mass index (BMI) of 35.0 to 35.9 in adult ([facility]) documented in this encounter Additional Health Concerns Assessment Noted Time PHQ-9 Depression Total Score: 0 05/28/20 25 2:40 PM EDT A Body Mass Index follow-up plan has been documented for the patient 05/28/2025 7:10 PM EDT documented as of this encounter Care Teams Linen Controller Relationship Specialty Start Date End Date Sascha Larsen DO [address] [facility], [place] [address] PCP - General Family Medicine 09/23/22 documented as of this encounter
[2025-06-07] VITALS (22 sets, daily range): BP systolic 129–185; BP diastolic 69–85; PULSE 63–80; TEMP 36.5; O2SAT 94–99; BMI 34.5
--- OUTSIDE RECORDS SUMMARY | 2025-06-07 12:26 | XMS_ITS | Patient Health Record ---
Author Organization [facility] Address [address] [place] [address] Care Team Providers Care Informatics Developer Name Role Phone Out of Town, Out of town Primary Care Provider U nadiaailable Gersonpatricia Artis Yen Unavailable [phone] Ibeth Gonsalez Unavailable [phone] Allergies Allergen (clinical drug ingredient) Drug/Non [...] Status W/U Status Risk Notes Problem Hypertension (87356402) Hypertension (I10) Active confirmed Problem Osteoarthritis (481762391) Osteoarthritis (M19.90) Active confirmed Problem Benign prostatic hyperplasia (170414620) BPH (benign prostatic hyperplasia) (N40.0) Active confirmed Problem Rheumatoid arthritis (22196440) Rheumatoid arthritis (M06.9) Active confirmed Problem GERD (K21.9) Active confirmed Encounters Encounter Location Date Provider Diagnosis [id number] [facility] [address] [place] [address] 09/06/2024 Yen Artis Impacted cerumen of right ear H61.21 and Influenza vaccination declined Z28.21 [address] [facility] [address] [place] [address] 03/23/2025 Ibeth Gonsalez Impacted cerumen, right ear [...] and shower do not work, use an wvkq-thx-meupvso wax softener. Read and follow all instructions [...] your feedback regarding your experience at [facility]. If patient is prompt pay, remove DELIVERY TABLE OPERATOR and add one of the following CPTs: 44874 if irrigation only was used or 81739 if instrumentation used. Add ICD code associated with Impacted Cerumen with specific laterality. Plan Of Treatment No Information Insurance Providers Payer Name Payer Address Payer Phone Subscriber Number Group Number Insured Name Patient Relationship to Insured Coverage Start Date Coverage End Date [place] [address] [place] [address] [id number] MarvinValentin Self - patient is the insured [facility] Medicare Supplement [facility] [address] [place] [address] [id number] Valentin Wong Self - patient is the insured Medical (General) History Medical History History ICD Code Hypertension I10 BPH (benign prostatic hyperplasia) N40.0 Rheumatoid arthritis M06.9 Osteoarthritis M19.90 GERD K21.9
--- OUTSIDE RECORDS SUMMARY | 2025-06-07 12:26 | XMS_ITS | Encounter Summary ---
Author Organization [facility] Address [address] [place] [address] Phone Care Team Providers Care Bonding Machine Operator Name Role Phone Sascha Larsen DO Primary Care Provider Encounter Details Date Type Department Care Team (Late st Contact Info) Description 03/20/2023 Orders Only [facility] [address] [place] [address] Conversion, Onbase Social History Tobacco Use Types [...] on filedocumented in this encounter Care Teams Bonding Machine Operator Relationship Specialty Start Date End Date Sascha Larsen DO PCP - General 03/30/23 documented as of this encounter
--- OUTSIDE RECORDS SUMMARY | 2025-06-07 12:27 | XMS_ITS | Encounter Summary ---
Author Organization [employer] s tem Address [facility]-[id number] [address] [place] [address] Care Team Providers Care Roll Edge Stitcher Hand Name Role Phone Sascha Larsen DO Primary Care Provider + [phone] Encounter Details Date Type Department Care Team (Late st Contact Info) Description 12/19/2023 Orders Only [facility] Internal Medicine - Family Medicine [address] [place] [address] Sascha Larsen DO [address] [place] [address] Midline low back pain without sciatica, unspecified [...] any clubs o r organizations such as jehovah's witness groups, unions, fraternal or athletic groups, or [...] Date Recorded Total Score 3 12/14/2023 [facility] Occupat ional Health - Occupational [...] Recorded Do you need help finding a [facility] and/or a training program? [...] - Family Medicine [address] [place] [address] documented as of this encounter Procedures Procedure [...] documented as of this encounter Care Teams Roll Edge Stitcher Hand Relationship Specialty Start Date End Date Sascha Larsen DO [address] [place] [address] PCP - General Family Medicine 09/23/22 documented as of this encounter
--- OUTSIDE RECORDS SUMMARY | 2025-06-07 12:27 | XMS_ITS | Encounter Summary ---
Author Organization [facility] Address [id number] [address] [place] [address] Care Team Providers Care Barrel Bung Remover And Dumper Name Role Phone Sascha Larsen DO Primary Care Provider + [phone] Encounter Details Date Type Department Care Team ([facility] Contact Info) Description 03/21/2023 [facility] [address] [place] [address] External, Scanning Provider Social History Tobacco Use [...] Upcoming Encounters Date Type Department Care Team ([facility] Contact Info) Description 05/13/2026 10:20 AM EDT [facility] [address] [place] [address] documented as of this encounter Procedures Procedure Name Priority Date/Time Associated Diagnosis Comments ECG 12-LEAD Routine 03/21/2023 documented in this encounter Results * ECG 12 lead (03/21/2023) us Scanning Provider External ECG ORDERABLES Final Result Performing Organization Address City/State/[facility] Co de Phone Number MANUALLY TRANSCRIBED RESULTS documented in this encounter Visit Diagnoses Not on filedocumented in this encounter Care Teams Barrel Bung Remover And Dumper Relationship Specialty Start Date End Date Sascha Larsen DO [address] [place] [address] PCP - General Family Medicine 09/23/22 documented as of this encounter
--- OUTSIDE RECORDS SUMMARY | 2025-06-07 12:27 | XMS_ITS | Encounter Summary ---
Author Organization [facility] Address [address] [place] [address] Phone Care Team Providers Care Hand Inserter Operator Name Role Phone Sascha Larsen DO Primary Care Provider Encounter Details Date Type Department Care Team (Late st Contact Info) Description 04/08/2023 Orders Only [facility] [address] [place] [address] Conversion, Onbase Social History Tobacco Use Types [...] on filedocumented in this encounter Care Teams Hand Inserter Operator Relationship Specialty Start Date End Date Sascha Larsen DO PCP - General 03/30/23 documented as of this encounter
--- OUTSIDE RECORDS SUMMARY | 2025-06-07 12:27 | XMS_ITS | Encounter Summary ---
Author Organization [employer] Sys tem Address [id number] [address] [place] [address] Care Team Providers Care Housekeeping Room Inspector Name Role Phone Sascha Larsen Primary Care Provider + [phone] Encounter Details Date Type Department Care Team (Late st Contact Info) Description 04/10/2025 Telephone [facility] Internal Medicine - Family Medicine [address] [place] [address] Carmen Neff CMA Social History Tobacco Use Types Packs/Day Years Used Date Smoking Tobacco: Former Cigarettes Passive Smoke Exposure: Past Smokeless Tobacco: Never Alcohol Use Standard Drinks/Week Comments Not Currently 0 (1 standard drink = 0.6 oz pur e alcohol) [facility] Utilities Answer Date Recorded In the past 12 months has [employer], gas, oil, or water company threatened to [...] often do you attend chur ch or nondenominational services? More than 4 times per year 04/14/2023 Do you belong to any clubs o r organizations such as restorationist groups, unions, fraternal or athletic groups, or [...] Answer Date Recorded Total Score 0 02/25/2025 [facility] Occupat ional Health - [...] Recorded Do you need help finding a [facility] career center and/or a training program? [...] - Family Medicine [address] [place] [address] documented as of this encounter Visit Diagnoses Not on filedocumented in this encounter Additional Health Concerns Assessment Noted Time PHQ-9 Depression Total Score: 0 02/26/20 25 1:33 PM EDT documented as of this encounter Care Teams Housekeeping Room Inspector Relationship Specialty Start Date End Date Sascha Larsen DO [address], [facility] [place] [address] PCP - General Family Medicine 09/23/22 documented as of this encounter
--- OUTSIDE RECORDS SUMMARY | 2025-06-07 12:27 | XMS_ITS | Encounter Summary ---
Author Organization [employer] Address [facility]-[id number] [address] [place] [address] Care Team Providers Care Cream Hauler Name Role Phone Sascha Larsen Primary Care Provider + [phone] Encounter Details Date Type Department Care Team (Late st Contact Info) Description 01/29/2025 Orders Only [facility] Internal [facility] - Family Medicine [address] [place] [address] Ref Prov, [place] [address] Social History Tobacco Use Types Packs/Day Years Used Date Smoking Tobacco: Former Cigarettes Passive Smoke Exposure: Past Smokeless Tobacco: Never Alcohol Use Standard Drinks/Week Comments Not Currently 0 (1 standard drink = 0.6 oz pur e alcohol) [facility] Utilities Answer Date Recorded In the past 12 months has [employer], gas, oil, or water [employer] threatened to shut off services in your [...] often do you attend chur ch or denominational services? More than 4 times per year 04/14/2023 Do you belong to any clubs o r organizations such as jain groups, unions, fraternal or athletic groups, or [...] Answer Date Recorded Total Score 0 01/25/2025 [facility] - Occupational Stress Questionnaire Answer Date Recorded [...] Do you need help finding a [facility] career center and/or a training program? No [...] - Family Medicine [address] [place] [address] documented as of this encounter Procedures Procedure [...] documented as of this encounter Care Teams Cream Hauler Relationship Specialty Start Date End Date Sascha Larsen DO [address] [place] [address] PCP - General Family Medicine 09/23/22 documented as of this encounter
--- OUTSIDE RECORDS SUMMARY | 2025-06-07 12:27 | XMS_ITS | Encounter Summary ---
Author Organization [facility] [employer] Address [facility]-[id number] [address] [place] [address] Care Team Providers Care Counter Attendant Name Role Phone Sascha Larsen DO Primary Care Provider + [phone] Encounter Details Date Type Department Care Team (Late st Contact Info) Description 03/25/2023 Orders Only [facility] - Family Medicine [address] [place] [address] External, Scanning Provider Social History Tobacco Use [...] - Family Medicine [address] [place] [address] documented as of this encounter Procedures Procedure Name Priority Date/Time Associated Diagnosis Comments ECHO 2.0 Routine 03/25/2023 documented in this encounter Results * Echo 2.0 (03/25/2023) Anatomical Region Laterality Modality Chest N/A Ultrasound us Scanning Provider External CV ECHO ORDERABLES Fi nal Result documented in this encounter Visit Diagnoses Not on filedocumented in this encounter Care Teams Counter Attendant Relationship Specialty Start Date End Date Sascha Larsen DO [address] [place] [address] PCP - General Family Medicine 09/23/22 documented as of this encounter
--- OUTSIDE RECORDS SUMMARY | 2025-06-07 12:27 | XMS_ITS | Encounter Summary ---
Author Organization [facility] Address [facility][id number] [address] [place] [address] Care Team Providers Care Nursery School Attendant Name Role Phone Sascha Larsen DO Primary Care Provider + [phone] Encounter Details Date Type Department Care Team (Late st Contact Info) Description 01/27/2024 Orders Only [facility] - Family Medicine [address] [place] [address] Sascha Larsen DO [address] [place] [address] Social History Tobacco Use Types Packs/Day Years [...] often do you attend chur ch or buddhist services? More than 4 times per year 04/14/2023 Do you belong to any clubs o r organizations such as nondenominational groups, unions, fraternal or athletic groups, or [...] Date Recorded Total Score 3 12/14/2023 [facility] Occupat ional Health - Occupational [...] you need help finding a [facility] career center and/or a training program? No [...] - Family Medicine [address] [place] [address] documented as of this encounter Procedures Procedure Name Priority Date/Time Associated Diagnosis Comments MULTIPLE LABS Routine 01/18/2024 10:08 AM EST documented in this encounter Results * Multiple labs (01/18/2024 10:08 AM EST) us Scanning Provider External [facility] Final Result MANUALLY TRANSCRIBED RESULTS documented in this encounter Visit Diagnoses Not on filedocumented in this encounter Additional Health Concerns Assessment Noted Time PHQ-9 Depression Total Score: 3 12/14/19 24 9:29 AM EST documented as of this encounter Care Teams Nursery School Attendant Relationship Specialty Start Date End Date Sascha Larsen DO [address] [place] [address] PCP - General Family Medicine 09/23/22 documented as of this encounter
--- OUTSIDE RECORDS SUMMARY | 2025-06-07 12:27 | XMS_ITS | Encounter Summary ---
Author Organization [employer] Address [id number] [address] [place] [address] Care Team Providers Care Insole And Heel Stiffener Name Role Phone Sascha Larsen DO Primary Care Provider + [phone] Reason for Visit * Reason Comments Med Refill Encounter Details Date Type Department Care Team (Late st Contact Info) Description 05/27/2025 Refill [facility] - Family Medicine [address] [place] [phone] Sascha Larsen DO [address], [place] [address] Social History Tobacco Use Types Packs/Day Years Used Date Smoking Tobacco: Former Cigarettes Passive Smoke Exposure: Past Smokeless Tobacco: Never Alcohol Use Standard Drinks/Week Comments Not Currently 0 (1 standard drink = 0.6 oz pur e alcohol) [facility] Utilities Answer Date Recorded In the past 12 months has [employer], gas, oil, or water [employer] threatened to shut off services in your [...] often do you attend chur ch or restorationism services? More than 4 times per year 04/14/2023 Do you belong to any clubs o r organizations such as mormon groups, unions, fraternal or athletic groups, or [...] Answer Date Recorded Total Score 0 05/28/2025 [facility] Occupat ional Health - Occupational [...] Recorded Do you need help finding a [facility] career center and/or a training [...] - Family Medicine [address] [place] [address] documented as of this encounter Visit Diagnoses Not on filedocumented in this encounter Additional Health Concerns Assessment Noted Time PHQ-9 Depression Total Score: 0 05/07/20 25 9:39 AM EDT documented as of this encounter Care Teams Insole And Heel Stiffener Relationship Specialty Start Date End Date Sascha Larsen DO [address] [facility] [place] [address] PCP - General Family Medicine 09/23/22 documented as of this encounter
--- OUTSIDE RECORDS SUMMARY | 2025-06-07 12:27 | XMS_ITS | Clinical Summary ---
Author Organization [facility] Address [address] [place], [place] [id number] Care Team Providers Care Medical Laboratory Technicians Name Role Phone Unavailable Primary Care Provider [...]
--- OUTSIDE RECORDS SUMMARY | 2025-06-07 12:27 | XMS_ITS | Clinical Summary ---
Author Organization [facility] Address [address], [address] [place] [address] Care Team Providers Care Cloth Seconds Sorter Name Role Phone AquilesSascha keen Primary Care Provider [phone] Allergies Active Allergy Reactions Criticality Noted Date Comments Aspirin Buf(Nximco-Tcnvdf-Jtz) Other (See Comments) 10/13/2015 Abdominal pain Cephalosporins [...] season) 2024 10/08/2022, 09/23/2021, 01/26/2021 Flu vaccine (#1) 06/21/2025 12/05/2022, , 07/28/2021, Additional history exists Respiratory Syncytial Virus [...] 3:04 PM 05/20/2014 4:06 PM Care Teams Cloth Seconds Sorter Relationship Specialty Start Date End Date Sascha Larsen DO [address] [place] [address] PCP - General 05/08/14
--- OUTSIDE RECORDS SUMMARY | 2025-06-07 12:27 | XMS_ITS | Encounter Summary ---
Author Organization [employer] tem Address [facility][id number] [address] [place] [address] Care Team Providers Care Food And Nutrition Services Supervisor Name Role Phone Sascha Larsen Primary Care Provider + [phone] Encounter Details Date Type Department Care Team (Late st Contact Info) Description 10/02/2024 Telephone [facility] - Family Medicine [address] [place] [address] Kori Magana CMA Social History Tobacco Use Types Packs/Day Years Used Date Smoking Tobacco: Former Cigarettes Passive Smoke Exposure: Past Smokeless Tobacco: Never Alcohol Use Standard Drinks/Week Comments Not Currently 0 (1 standard drink = 0.6 oz pur e alcohol) [facility] Utilities Answer Date Recorded In the past 12 months has [employer], gas, oil, or water [employer] threatened to shut off services in your [...] often do you attend chur ch or buddhism services? More than 4 times per year [...] Answer Date Recorded Total Score 0 09/24/2024 [facility] of Occupat ional Health - [...] Recorded Do you need help finding a [place] [employer] career center and/or a training program? No [...] - Family Medicine [address] [place] [address] documented as of this encounter Visit Diagnoses Not on filedocumented in this encounter Additional Health Concerns Assessment Noted Time PHQ-9 Depression Total Score: 0 09/24/20 24 1:35 PM EST documented as of this encounter Care Teams Food And Nutrition Services Supervisor Relationship Specialty Start Date End Date Sascha Larsen DO [address], [email or web address] [place] [address] PCP - General Family Medicine 09/23/22 documented as of this encounter
--- OUTSIDE RECORDS SUMMARY | 2025-06-07 12:27 | XMS_ITS | Encounter Summary ---
Author Organization [employer] Address [facility]-[id number] [address] [place] [address] Care Team Providers Care Coronary Clinical Specialist Name Role Phone Sascha Larsen Primary Care Provider [phone] Encounter Details Date Type Department Care Team (Latest Contact Info) Description 05/28/2025 Travel Social History Tobacco Use Types Packs/Day Years Used Date Smoking Tobacco: Former Cigarettes 0.5 12 0 05/28/1975 - 05/28/1987 Passive Smoke Exposure: Past Smokeless Tobacco: Never Alcohol Use Standard Drinks/Week Comments Not Currently 0 (1 standard drink = 0.6 oz pur e alcohol) [facility] Utilities Answer Date Recorded In the past 12 months has [employer], gas, oil, or water company threatened [...] week 04/14/2023 How often do you attend [facility] or buddhist services? More than 4 times [...] Answer Date Recorded Total Score 0 05/28/2025 [facility] of [...] Recorded Do you need help finding a [facility] career center and/or a training program? No [...] - Family Medicine [address] [place] [address] documented as of this encounter Visit Diagnoses Not on filedocumented in this encounter Additional Health Concerns Assessment Noted Time PHQ-9 Depression Total Score: 0 05/28/20 25 2:40 PM EDT A Body Mass Index follow-up plan has been documented for the patient 05/28/2025 7:10 PM EDT documented as of this encounter Care Teams Coronary Clinical Specialist Relationship Specialty Start Date End Date Sascha Larsen DO [address], [place] [address] PCP - General Family Medicine 09/23/22 documented as of this encounter
--- OUTSIDE RECORDS SUMMARY | 2025-06-07 12:27 | XMS_ITS | Encounter Summary ---
Author Organization [employer] [facility] tem Address [id number] [address] [place] [address] Care Team Providers Care Tight Barrel Inspector Name Role Phone Sascha Larsen DO Primary Care Provider + [phone] Encounter Details Date Type Department Care Team ([facility] Contact Info) Description 03/22/2023 Orders Only [facility] - Family Medicine [address] [place] [address] External, Scanning Provider Social History Tobacco Use [...] Upcoming Encounters Date Type Department Care Team ([facility] Contact Info) Description 05/13/2026 10:20 AM EDT [facility] [address] [place] [address] documented as of this encounter Procedures Procedure Name Priority Date/Time Associated Diagnosis Comments NUC STRESS EXERCISE Routine 03/22/2023 documented in this encounter Results * Nuc stress exercise (03/22/2023) Anatomical Region Laterality Modality Chest N/A Nuclear Medicine us Scanning Provider External CV STRESS ORDERABLES Final Result documented in this encounter Visit Diagnoses Not on filedocumented in this encounter Care Teams Tight Barrel Inspector Relationship Specialty Start Date End Date Sascha Larsen DO [address], [facility] [address] PCP - General Family Medicine 09/23/22 documented as of this encounter
--- OUTSIDE RECORDS SUMMARY | 2025-06-07 12:27 | XMS_ITS | Encounter Summary ---
Author Organization [employer] Address [facility]-[id number] [address] [place] [address] Care Team Providers Care Jet Aircraft Servicer Name Role Phone Sascha Larsen Primary Care Provider + [phone] Encounter Details Date Type Department Care Team (Late st Contact Info) Description 04/14/2023 Orders Only [facility] - Family Medicine [address] [place] [address] Minerva Saini CMA Shortness of breath Social [...] week 04/14/2023 How often do you attend [facility] or restoration services? More than 4 times per year 04/14/2023 Do you belong to any clubs o r organizations such as zoroastrianism groups, unions, fraternal or athletic groups, or [...] Answer Date Recorded Total Score 0 04/15/2023 [facility] of Occupat ional Health - Occupational [...] - Family Medicine [address] [place] [address] documented as of this encounter Procedures Procedure Name Priority Date/Time Associated Diagnosis Comments PULMONARY FUNCTION TEST Routine 04/14/2023 9:36 A M EDT Shortness of breath documented in this encounter Results * Pulmonary function test Complete PFT (Spirometry (Flow Volume Loop) w/ DLCO (diffusion study) and Lung Volume) (04/14/2023 9:36 AM EDT) us Sascha Larsen DO PFT ORDERABLES Final Result Performing Organization Address City/State/[facility] Co de Phone Number MANUALLY TRANSCRIBED RESULTS documented in this encounter Visit Diagnoses Diagnosis Shortness of breath documented in this encounter Additional Health Concerns Assessment Noted Time PHQ-9 Depression Total Score: 0 04/14/20 1:06 PM EDT documented as of this encounter Care Teams Jet Aircraft Servicer Relationship Specialty Start Date End Date Sascha Larsen DO [address], [place] [address] PCP - General Family Medicine 09/23/22 documented as of this encounter
--- OUTSIDE RECORDS SUMMARY | 2025-06-07 12:27 | XMS_ITS | Encounter Summary ---
Author Organization [facility] Address [facility]-[id number] [address] [place] [address] Care Team Providers Care Imaging Services Director Name Role Phone Sascha Larsen DO Primary Care Provider + [phone] Encounter Details Date Type Department Care Team (Late st Contact Info) Description 12/16/2023 Orders Only [facility] - Family Medicine [address] [place] [address] Sascha Larsen DO [address], [place] [address] Social History Tobacco Use Types Packs/Day Years [...] often do you attend chur ch or voodoo services? More than 4 times per year [...] Answer Date Recorded Total Score 3 12/14/2023 [facility] of Occupat ional Health - [...] Recorded Do you need help finding a [facility] career center and/or a training program? No [...] - Family Medicine [address] [place] [address] documented as of this encounter Procedures Procedure Name Priority Date/Time Associated Diagnosis Comments COLONOSCOPY Routine 06/15/2017 7:42 AM EDT HEPATITIS C(HCV) ANTIBODY W/REFLEX TO PCR Routine 09/08/2016 7:47 AM EDT documented in this encounter Results * HM COLONOSCOPY (06/15/2017 7:42 AM EDT) us Scanning Provider External HEALTH MAINTENANCE Fi nal Result Performing Organization Address City/[facility]/ZIP Co de Phone Number MANUALLY TRANSCRIBED RESULTS * Hepatitis C(HCV) Ab w/ Reflex to PCR (09/08/2016 7:47 AM EDT) us Scanning Provider External LAB BLOOD ORDERABLES Final Result Performing Organization Address [facility] Co de Phone Number MANUALLY TRANSCRIBED LAB RESULTS documented in this encounter Visit Diagnoses Not on filedocumented in this encounter Additional Health Concerns Assessment Noted Time PHQ-9 Depression Total Score: 3 12/14/19 24 9:29 AM EST documented as of this encounter Care Teams Imaging Services Director Relationship Specialty Start Date End Date Sascha Larsen DO [address], [place] [address] PCP - General Family Medicine 09/23/22 documented as of this encounter
--- OUTSIDE RECORDS SUMMARY | 2025-06-07 12:27 | XMS_ITS | Clinical Summary ---
Author Organization [facility] Address [address] [place] [address] Phone Care Team Providers Care Ad Operations Coordinator Name Role Phone Sascha Larsen DO Primary Care Provider Social History Tobacco Use Types Packs/Day [...] - 2023-2 5 season) 2024 Influenza Vaccine (#1) 2025 RSV High Risk: (Elderly (60+ ) [...] topic Insurance MEDICARE PART A AND B [facility] Care Teams Ad Operations Coordinator Relationship Specialty Start Date End Date Sascha Larsen DO PCP - General 03/30/23
--- OUTSIDE RECORDS SUMMARY | 2025-06-07 12:27 | XMS_ITS | Encounter Summary ---
Author Organization [facility] Address [address] [place] [address] Phone Care Team Providers Care Paper Rewinder Name Role Phone Sascha Larsen DO Primary Care Provider Encounter Details Date Type Department Care Team (Late st Contact Info) Description 05/03/2023 Orders Only [facility] [address] [place] [address] Conversion, Onbase Social History Tobacco Use Types [...] on filedocumented in this encounter Care Teams Paper Rewinder Relationship Specialty Start Date End Date Sascha Larsen DO PCP - General 03/30/23 documented as of this encounter
--- OUTSIDE RECORDS SUMMARY | 2025-06-07 12:27 | XMS_ITS | Encounter Summary ---
Author Organization [employer] Address [facility]-[id number] [address] [place] [address] Care Team Providers Care Director Of Technology Name Role Phone Sascha Larsen Primary Care Provider + [phone] Encounter Details Date Type Department Care Team (Late st Contact Info) Description 11/23/2024 Telephone [facility] - Family Medicine [address] [place] [address] AlanAlly edward, RAMIRO Social History Tobacco Use Types Packs/Day Years Used Date Smoking Tobacco: Former Cigarettes Passive Smoke Exposure: Past Smokeless Tobacco: Never Alcohol Use Standard Drinks/Week Comments Not Currently 0 (1 standard drink = 0.6 oz pur e alcohol) [facility] Utilities Answer Date Recorded In the past 12 months has [employer], gas, oil, or water company threatened to [...] often do you attend chur ch or anglican services? More than 4 times per year 04/14/2023 Do you belong to any clubs o r organizations such as adventism groups, unions, fraternal or athletic groups, or [...] Answer Date Recorded Total Score 0 09/24/2024 [facility] of Occupat ional Health - Occupational Stress [...] Recorded Do you need help finding a [facility] career [facility] and/or a training [...] his and her lab order sent to [facility] so they have their results for their upcoming appts documented in this encounter Plan of Treatment Upcoming Encounters Date Type Department Care Team (Late st Contact Info) Description 05/13/2026 10:20 AM EDT Office Visit [facility] - Family Medicine [address] [place] [address] documented as of this encounter Visit Diagnoses Not on filedocumented in this encounter Additional Health Concerns Assessment Noted Time PHQ-9 Depression Total Score: 0 09/24/20 24 1:35 PM EST documented as of this encounter Care Teams Director Of Technology Relationship Specialty Start Date End Date Sascha Larsen DO [address], [place] [address] PCP - General Family Medicine 09/23/22 documented as of this encounter
--- OUTSIDE RECORDS SUMMARY | 2025-06-07 12:27 | XMS_ITS | Encounter Summary ---
Author Organization [employer] Address [facility]-[id number] [address] [place] [address] Care Team Providers Care Fire Department Battalion Chief Name Role Phone Sascha Larsen Primary Care Provider + [phone] Encounter Details Date Type Department Care Team (Late st Contact Info) Description 01/28/2025 Orders Only [facility] - Family Medicine [address] [place] [address] Ref Prov, [place] [address] Social History Tobacco Use Types Packs/Day Years Used Date Smoking Tobacco: Former Cigarettes Passive Smoke Exposure: Past Smokeless Tobacco: Never Alcohol Use Standard Drinks/Week Comments Not Currently 0 (1 standard drink = 0.6 oz pur e alcohol) [facility] Utilities Answer Date Recorded In the past 12 months has [employer], gas, oil, or water [employer] threatened to shut off services in your [...] often do you attend chur ch or christianity services? More than 4 times per year 04/14/2023 Do you belong to any clubs o r organizations such as evangelical groups, unions, fraternal or athletic groups, or [...] Answer Date Recorded Total Score 0 01/25/2025 [facility] - Occupational Stress Questionnaire Answer Date [...] Do you need help finding a [facility] career [facility] and/or a training [...] - Family Medicine [address] [place] [address] documented as of this encounter Procedures Procedure Name Priority Date/Time Associated Diagnosis Comments MULTIPLE LABS Routine 01/14/2025 4:20 PM EST documented in this encounter Results * Multiple labs (01/14/2025 4:20 PM EST) us Not In System Ref Prov CT IMAGING Final Res ult MANUALLY TRANSCRIBED RESULTS documented in this encounter Visit Diagnoses Not on filedocumented in this encounter Additional Health Concerns Assessment Noted Time PHQ-9 Depression Total Score: 0 01/26/20 11:28 AM EST documented as of this encounter Care Teams Fire Department Battalion Chief Relationship Specialty Start Date End Date Sascha Larsen DO [address], [place] [address] PCP - General Family Medicine 09/23/22 documented as of this encounter
--- OUTSIDE RECORDS SUMMARY | 2025-06-07 12:27 | XMS_ITS | Encounter Summary ---
Author Organization [facility] Address [address] [place] [address] Phone Care Team Providers Care Assorter Laundry Name Role Phone Sascha Larsen DO Primary Care Provider Encounter Details Date Type Department Care Team (Late st Contact Info) Description 02/16/2025 Scanned Document [facility] [address] [place] [address] Scanning, Generic Provider Social History Tobacco Use [...] on filedocumented in this encounter Care Teams Assorter Laundry Relationship Specialty Start Date End Date Sascha Larsen DO PCP - General 03/30/23 documented as of this encounter
--- OUTSIDE RECORDS SUMMARY | 2025-06-07 12:27 | XMS_ITS | Encounter Summary ---
Author Organization [employer] Address [facility]-[id number] [address] [place] [address] Care Team Providers Care Community Artist Name Role Phone Sascha Larsen Primary Care Provider + [phone] Encounter Details Date Type Department Care Team (Late st Contact Info) Description 02/17/2024 Orders Only [facility] - Family Medicine [address] [place] [address] External, Scanning Provider Social History Tobacco Use [...] week 04/14/2023 How often do you attend [facility] or jewish services? More than 4 times per year 04/14/2023 Do you belong to any clubs o r organizations such as yarsanism groups, unions, fraternal or athletic groups, or [...] Answer Date Recorded Total Score 3 12/14/2023 [facility] of Occupat ional Health - [...] - Family Medicine [address] [place] [address] documented as of this encounter Procedures Procedure [...] documented as of this encounter Care Teams Community Artist Relationship Specialty Start Date End Date Sascha Larsen DO [address] [place] [address] PCP - General Family Medicine 09/23/22 documented as of this encounter
--- OUTSIDE RECORDS SUMMARY | 2025-06-07 12:27 | XMS_ITS | Encounter Summary ---
Author Organization [facility] Address [address] [place] [address] Care Team Providers Care Superintendent Board Mill Name Role Phone Arsenio Loera MD Unavailable Carlos Eden DO Unavailable [phone] Sascha Larsen MD Primary Care Provider + [phone] Reason for Visit * Reason Comments Med Refill Encounter Details Date Type Department Care Team (Late st Contact Info) Description 06/01/2025 Refill [facility] [address] [place] [address] Kali Terrazas DPM [address] [address] Tenosynovitis of right lower leg Social History Tobacco [...] encounter Miscellaneous Notes * Telephone Encounter - Kali Terrazas DPM - 06/03/2025 10:35 AM EDT Patient to call back if no improvement with steroid pack for appt. documented in this encounter Plan of Treatment Upcoming Encounters Date Type Department Care Team (Late st Contact Info) Description 06/20/2025 10:00 AM EDT Procedure Visit [facility] [address] [place] [address] Kali Terrazas, DPEduard [address] [facility] [address] [place] [address] 09/16/2025 9:00 AM EDT Office Visit [facility] [address] [place] [address] Junito Taylor MD [address] [facility] [address], [place] [address] 12/18/2025 1:45 PM EST Office Visit [facility] [place] [address] [place] [address] Carlos Eden DO [address] [place] [address] documented as of this encounter Visit Diagnoses Diagnosis Tenosynovitis of right lower leg documented in this encounter Care Teams Superintendent Board Mill Relationship Specialty Start Date End Date Sascha Larsen MD [address] [place] [address] PCP - General Family Medicine 01/30/25 Arsenio Loera MD [address] [place] [address], [address] [place] [address] Referring Physician Neurosurgery 06/13/24 Carlos Eden DO [address] [place] [address] Otolaryngology 06/13/24 documented as of this encounter
--- OUTSIDE RECORDS SUMMARY | 2025-06-07 12:27 | XMS_ITS | Encounter Summary ---
Author Organization [employer] Sys tem Address [id number] [address] [place] [address] Care Team Providers Care Agriculture Manager Name Role Phone Sascha Larsen Primary Care Provider + [phone] Encounter Details Date Type Department Care Team (Late st Contact Info) Description 08/28/2024 Orders Only [facility] - Family Medicine [address] [place] [address] Ref Prov, [place] [address] Social History Tobacco Use Types Packs/Day Years Used Date Smoking Tobacco: Former Cigarettes Passive Smoke Exposure: Past Smokeless Tobacco: Never Alcohol Use Standard Drinks/Week Comments Not Currently 0 (1 standard drink = 0.6 oz pur e alcohol) [facility] Utilities Answer Date Recorded In the past 12 months has Fluency, gas, oil, or water [employer] threatened to shut off services in your [...] often do you attend chur ch or presybeterian services? More than 4 times per year 04/14/2023 Do you belong to any clubs o r organizations such as taoism groups, unions, fraternal or athletic groups, or [...] Answer Date Recorded Total Score 0 06/14/2024 [facility] - Occupational Stress Questionnaire Answer Date [...] Recorded Do you need help finding a [facility] career center and/or a training [...] Medicine - Family Medicine [address] [place] [address] documented as of this encounter Procedures Procedure [...] documented as of this encounter Care Teams Agriculture Manager Relationship Specialty Start Date End Date Sascha Larsen DO [address] [place] [address] PCP - General Family Medicine 09/23/22 documented as of this encounter
--- OUTSIDE RECORDS SUMMARY | 2025-06-07 12:27 | XMS_ITS | Clinical Summary ---
Author Organization [facility] Address [address] [place] [address] Care Team Providers Care Ordering Machine Operator Name Role Phone Arsenio Loera MD Unavailable Carlos Eden DO Unavailable [phone] Sascha Larsen MD Primary Care Provider [phone] Allergies Active Allergy Reactions Criticality Noted Date Comments Aspirin Buf(Lslbtq-Hgppga-Buq) 10/13/2015 Other Reaction(s): Other (See Comments), Unknown Abdominal pain Calcium Carbonate GI intolerance 05/07/2023 Cephalexin 04/25/2018 Other Reaction(s): Unknown, Unknown, Unknown Reaction Cephalosporins Unknown 05/20/2014 Magnesium GI intolerance 05/07/2023 Oxycodone Hallucinations 04/25/2018 Other Reaction(s): Hallucinating, Mental Status Change, Unknown Sulfa Antibiotics Rash Low 05/20/2014 Other Reaction(s): Other (See Comments), Unknown Medications acetaminophen (Tylenol) 500 MG tablet Take by mouth 023 Active budesonide (Rhinocort AQ) 32 MCG/ACT nasal spray 62,500 sprays Acti ve colchicine 0.6 MG tablet 024 Active folic acid (Folvite) 1 MG tablet folic acid 1 mg tablet 023 Active hydroxychloroqu ine (Plaquenil) 200 MG tablet hydroxychloroquine 200 mg tablet TAKE 1 TABLET BY MOUTH TWICE A DAY 023 Active leucovorin (Wellcovorin) 5 MG tablet Take [...] capsule Take 0.4 mg by mouth Daily Active nabumetone (Relafen) 750 MG tablet Take 750 mg by mouth Active prednisoLONE acetate (Pred-Forte) 1 % ophthalmic suspension Active omeprazole (PriLOSEC) [address] capsule Active Methotrexate Sodium (methotrexate PF) 50 MG/2ML syringe Active meloxicam (Mobic) 15 MG tablet Active lisinopril-hydr oCHLOROthiazide 20-12.5 MG tablet Take 1 tablet by mouth in the morning. Active leflunomide (Arava) 10 MG tablet Active dexAMETHasone (Decadron) 2 MG tabletIndicatio ns:Piriformis syndrome of right side Take 1 tablet by mouth once daily for 7 days. 7 tablet 1 Active Additional Information Patient not taking.Reported on 05/15/2025 primidone (Mysoline) 50 MG tabletIndicatio ns:Intention tremor Take 1 tablet (50 mg) by mouth Daily AND 3 tablets (150 mg) at bedtime. 360 tablet 3 025 2025 Active aspirin 81 MG EC tablet Take 81 mg by mouth Daily Active fluticasone (Flonase) 50 MCG/ACT nasal spray Administer 1 spray into each nostril Daily Shake gently. Before first use, prime pump. After use, clean tip and replace cap. Active Fexofenadine-Ps eudoephedrine (CORI-D 24 HOUR PO) Take 1 tablet by mouth Daily as needed Act gaurav dutasteride (Avodart) 0.5 MG capsule Take 0.5 mg by mouth Daily Active gabapentin (Neurontin) 100 MG capsuleIndicati ons:Intention tremor Take 1 capsule (100 mg) by mouth in the morning and 1 capsule (100 mg) in the evening and 1 capsule (100 mg) before bedtime. 270 capsule 3 025 2025 Active methylPREDNISol one (Medrol Dospak) 4 MG tabletsIndicati ons:Tenosynovit is of right lower leg TAKE BY MOUTH INSTRUCTED - PER PACKAGE INSTRUCTIONS 21 tablet 025 Active biotin 10 MG capsuleIndicati ons:Intention tremor Take 1 capsule (10 mg) by mouth in the morning and 1 capsule (10 mg) before bedtime. 60 capsule 11 024 2024 Disconti nued(Ine ffective ) gabapentin (Neurontin) 100 MG capsule Take 100 mg by mouth in the morning and 100 mg in the evening and 100 mg before bedtime. 2024 Disconti nued(Reo rder) Active Problems Problem Noted Date Diagnosed Date [...] pain 05/28/2024 Cleft palate and cleft lip (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 Glenoid labrum tear 11/21/2008 Rotator cuff syndrome of right shoulder 11/21/19 09 Traumatic rupture of biceps tendon 11/21/2008 Encounters Date Type Department Care Team Description 06/01/2025 Refill [facility] [address] [place] [address] Kali Terrazas DPM Tenosynovitis of right lower leg 05/15/2025 10:30 AM EDT Office Visit [facility] [address] [phone] Phoebe Connell NP Intention tremor (Primary Dx); Polyneuropathy 05/15/2025 Bamboo flowsheet [facility] [address] [place] [address] Phoebe Connell POURER BUGGY LADLE 05/15/2025 Travel 04/09/2025 4:10 PM EDT Procedure Visit [facility] [address] [place] [phone] Kali Terrazas, DPEduard Tenosynovitis of right lower leg (Primary Dx); Su splint, right, initial encounter; 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; Contracture of right ankle; Xerosis cutis; Pain due to onychomycosis of toenails of both feet 04/09/2025 Bamboo flowsheet [facility] [address] [place] [address] Kali Terrazas DPM 03/21/2025 Refill [facility] [address] [facility] [address] [place] [address] Zara John MA Intention tremor (Primary Dx) 03/20/2025 10:20 AM EDT Office Visit [facility] [address] [phone] Junito Taylor MD Piriformis syndrome of right side (Primary Dx); Intention tremor 03/20/2025 Bamboo flowsheet [facility] [address] [place] [address] Junito Taylor MD 03/20/2025 Travel from Last 3 Months Immunizations Immunization [...] Sign Reading Time Taken Comments Blood Pressure 128/82 05/15/2025 10:25 AM EDT Pulse 78 02/07/2025 10:07 AM EDT Temperature - - Respiratory Rate 16 04/09/2025 4:02 PM EDT Oxygen Saturation - - Inhaled Oxygen Concentration - - Weight 99.2 kg (218 lb 9.6 oz) 05/15/2025 10:25 AM EDT Height 170.2 cm (5' 7 ) 05/15/2025 10:25 AM EDT Body Mass Index 34.24 05/15/2025 10:25 AM EDT Plan of Treatment Upcoming Encounters Date Type Department Care Team (Late st Contact Info) Description 06/20/2025 10:00 AM EDT Procedure Visit [facility] [address] [facility] [address] [place] [address] Kali Terrazas, DPEduard [address] [facility] [address] [place] [address] 09/16/2025 9:00 AM EDT Office Visit [facility] [address] [facility] [address] [place] [address] Junito Taylor MD [address] [facility] [address] [id number] 12/18/2025 1:45 PM EST Office Visit [facility] [place] [address] [place] [address] Carlos Eden DO [address] [place] [address] Health Maintenance Due Date Last Done Comments CT Colonography 1957 Colonoscopy 1957 Colorectal Cancer Screening 1957 FIT-DNA 1957 FIT 1957 FOBT 1957 Sigmoidoscopy 1957 Influenza Vaccine (#1) 2025 , 08/23/2023, 12/05/2022, Additional history exists Pneumococcal Vaccine: 65+ Years Completed 09/06/2024, 04/16/2022, 09/16/2016, Additional history exists Insurance MEDICARE [facility] Care Teams Ordering Machine Operator Relationship Specialty Start Date End Date Sascha Larsen MD [address], [facility] [place] [address] PCP - General Family Medicine 01/30/25 Arsenio Loera MD [address] [place] [address] [address] [place] [address] Referring Physician Neurosurgery 06/13/24 Carlos Eden DO [address] [place] [address] Otolaryngology 06/13/24
--- OUTSIDE RECORDS SUMMARY | 2025-06-07 12:27 | XMS_ITS | Clinical Summary ---
Author Organization [employer] tem Address [id number] [address] [place] [address] Care Team Providers Care Career Education Teacher Name Role Phone Sascha Larsen DO Primary Care Provider [phone] Allergies Active Allergy Reactions Criticality Noted Date [...] by mouth in the morning. 30 tablet 03/28/20 23 Active KLOR-CON/EF 25 mEq disintegrating tablet Take 1 tablet (25 mEq total) by mouth in the morning and 1 tablet (25 mEq total) before bedtime. 12/14/19 24 Active acetaminophen (TYLENOL EXTRA STRENGTH) 500 mg tablet Take 2 tablets (1,000 mg total) by mouth as needed in the morning and 2 tablets (1,000 mg total) as needed at noon and 2 tablets (1,000 mg total) as needed in the evening for pain. 05/09/20 23 Active tamsulosin (FLOMAX) 0.4 mg capsule Take 1 capsule (0.4 mg total) by mouth nightly. Active prednisoLONE acetate (PRED FORTE) 1 % ophthalmic suspension 08/22/20 23 Active meloxicam (MOBIC) 15 mg tablet 10/06/20 24 Active leucovorin (WELLCOVORIN) 5 mg tablet 12/06/19 25 Active predniSONE (DELTASONE) 20 mg tablet prn 09/24/20 24 Active lisinopril-hydroCH LOROthiazide (PRINZIDE,ZESTORET IC) 20-12.5 mg per tablet TAKE 1 TABLET BY MOUTH DAILY 90 tablet 1 02/25/20 25 Active primidone (MYSOLINE) 50 mg tablet 1 tablet (50 mg total). 1 po in AM 3 po at HS 02/22/20 25 Active naproxen (NAPROSYN) 250 mg tablet Active omeprazole (PriLOSEC) 40 mg capsule Oral for 90 Days Active gabapentin (NEURONTIN) 100 mg capsuleIndications :Lumbar radiculopathy Take 1 capsule (100 mg total) by mouth 3 (three) times a day. 90 capsule 1 04/16/20 25 Active simvastatin (ZOCOR) 20 mg tablet TAKE 1 TABLET BY MOUTH DAILY 90 tablet 3 05/27/20 25 Active montelukast (SINGULAIR) 10 mg tablet TAKE 1 TABLET BY MOUTH DAILY 90 tablet 3 05/27/20 25 Active aspirin 81 mg Take 1 tablet (81 mg total) by mouth in the morning. Active fexofenadine-pseud oephedrine (CORI-D 24) 180-240 mg per 24 hr tablet Take 1 tablet by mouth as needed. Active dutasteride (AVODART) 0.5 mg capsule TAKE 1 CAPSULE BY MOUTH EVERY DAY FOR 30 DAYS Active fluticasone propionate (FLONASE) 50 mcg/actuation nasal spray 1 spray in the morning. Active budesonide-formote roL (SYMBICORT) 80-4.5 mcg/actuation inhalerIndications :Moderate persistent asthma, unspecified whether complicated Inhale 2 puffs in the morning and 2 puffs before bedtime. 10.2 g 5 05/28/20 25 Active montelukast (SINGULAIR) 10 mg tablet take 1 tablet by mouth daily 90 tablet 3 06/02/20 24 025 Discontinued simvastatin (ZOCOR) 20 mg tablet take 1 tablet by mouth daily 90 tablet 3 06/02/20 24 025 Discontinued Active Problems Problem Noted Date Diagnosed Date [...] Kidney stones 12/14/2023 Gross hematuria 12/14/2023 Class 2 severe obesity due t o excess calories with serious comorbidity and body mass index (BMI) of 35.0 to 35.9 in adult 04/15/2023 Antiphospholipid syndrome 09/29/2022 Cleft [...] Encounters Date Type Department Care Team Description 05/28/2025 2:45 PM EDT Office Visit [facility] - Family Medicine [address] [place] [address] Sascha Larsen DO Moderate persistent asthma, unspecified whether complicated (Primary Dx); Class 2 severe obesity due to excess calories with serious comorbidity and body mass index (BMI) of 35.0 to 35.9 in adult ([facility]) 05/28/2025 Travel 05/27/2025 Refill [facility] - Family Medicine [address] [place] [address] Sascha Larsen DO 05/07/2025 9:40 AM EDT Office Visit [facility] - Family Medicine [address] [place] [address] Sascha Larsen DO Medicare annual wellness visit, subsequent (Primary Dx); Screening for depression 05/07/2025 Travel 04/16/2025 4:45 PM EDT Office Visit [facility] - Family Medicine [address] [place] [address] Sascha Larsen DO Lumbar radiculopathy (Primary Dx); Pain of right lower leg 04/16/2025 Travel 04/10/2025 Telephone [facility] - Family Medicine [address] [place] [address] Carmen Neff CMA 04/10/2025 Telephone [facility] - Family Medicine [address] [place] [address] Carmen Neff CMA from Last 3 Months Immunizations Immunization Administration Dates Next Due Covid-19, Mrna, Lnp-s, Bival ent, Pf, 30mcg/0.3 ml 10/08/2022 Covid-19, Mrna, Lnp-s, Pf,erasmo-sucrose,30 Mcg/0.3ml Seasonal 08/23/2023 Hep B, Adolescent or Pediatric 11/20/1990,1989 Influenza High Dose Preserva tive Free IM 11/03/2024 Influenza, High-dose, Quadrivalent 08/23/2023, Influenza, Injectable, MDCK, Quadrivalent 08/20/2019 Influenza, Injectable, Mdck, Preservative Free, Quad 08/22/2020,09/05/2018,07/28/2017 Influenza, Injectable, Quadrivalent 09/09/2016 Influenza, Injectable, quadr ivalent (PF) 07/28/2021 Influenza, Unspecified 12/05/2022,2021,07/28/2021,08/22,08/20/2019,09/05/2018,09/09/2016 Pneumococcal Conjugate 13-Valent 09/16/2016 Pneumococcal Conjugate 20-valent 04/16/2022 Pneumococcal Polysaccharide 09/06/2024, 3 RSV, bivalent, protein subun it RSVpreF, diluent [...] drink = 0.6 oz pur e alcohol) [facility] Utilities Answer Date Recorded In the past 12 months has [employer], gas, oil, or water [employer] threatened to shut off services in your [...] any clubs o r organizations such as sabianist groups, unions, fraternal or athletic groups, or [...] Answer Date Recorded Total Score 0 05/28/2025 [facility] - Occupational Stress Questionnaire Answer Date [...] Recorded Do you need help finding a [facility] career center and/or a training program? No [...] Mass Index 35.01 05/28/2025 2:42 PM EDT Plan of Treatment Upcoming Encounters Date Type Department Care Team (Late st Contact Info) Description 05/13/2026 10:20 AM EDT Office Visit [facility] - Family Medicine [address] [place] [address] Health Maintenance Due Date Last Done Comments Abdominal Aortic Aneurysm (A AA) Screen 2022 COVID-19 Vaccine (3 - Pfizer risk series) 09/20/2023 08/23/2023, 10/08/2022, 10/08/2022 Influenza Vaccine 07/22/2025 11/03/2024, , 12/05/2022, Additional history exists Medicare Annual Wellness Visit 05/07/2026 0 05/07/2025, 05/01/2024, 04/14/2023 Adult BMI Follow Up Plan 05/28/2026 05/28/2025 Adult BMI Screening 05/28/2026 05/28/2025 Depression Screening 05/28/2026 05/28/2025 Fall Risk Screening 05/28/2026 05/28/2025 Tobacco Screening 05/28/2026 05/28/2025 Colonoscopy 06/15/2027 06/15/2017 DTaP,Tdap and Td Vaccines (3 - Td or Tdap) 05/20/2033 05/20/2023, 12/05/2012 Zoster (Shingles) Vaccine Completed 08/26/2019, 05/2019 Medical Devices Not on file Procedures Procedure Name Priority Date/Time Associated Diagnosis Comments COLONOSCOPY Routine 06/15/2017 7:42 AM EDT from Last 3 Months or Most Recently Relevant to Health Maintenance Results * COLONOSCOPY (06/15/2017 7:42 AM EDT) us Scanning Provider External HEALTH MAINTENANCE Fi nal Result MANUALLY TRANSCRIBED RESULTS from Last 3 Months or Most Recently Relevant to Health Maintenance Insurance MEDICARE [facility] Care Teams Career Education Teacher Relationship Specialty Start Date End Date Sascha Larsen DO [address], [facility] [place] [address] PCP - General Family Medicine 09/23/22
--- OUTSIDE RECORDS SUMMARY | 2025-06-07 12:27 | XMS_ITS | Encounter Summary ---
Author Organization [facility] Address [address] [facility] [place] [address] Care Team Providers Care Ultrasonic Seaming Machine Operator Name Role Phone Arsenio Loera MD Unavailable Carlos Eden DO Unavailable [phone] Sascha Larsen MD Primary Care Provider [phone] Encounter Details Date Type Department Care Team (Late Contact Info) Description 07/28/2024 Abstract [facility] [place] [address] [place] [phone] Zandra Echevarria MA Social History Tobacco Use [...] Department Care Team (Late Contact Info) Description 06/20/2025 10:00 AM EDT Procedure Visit [facility] [address] [place] [address] Kali Terrazas, DPM [address] [facility] 5 [place] [address] 09/16/2025 9:00 AM EDT Office Visit [facility] [address] [facility] [address] [place] [phone] Junito Taylor MD [address] [facility] [address] [id number] 12/18/2025 1:45 PM EST Office Visit [facility] [place] [address] [place] [address] Carlos Eden DO [address] [place] [address] documented as of this encounter Visit Diagnoses Not on filedocumented in this encounter Care Teams Ultrasonic Seaming Machine Operator Relationship Specialty Start Date End Date Sascha Larsen MD [address] [facility] [place] [address] PCP - General Family Medicine 01/30/25 Arsenio Loera MD [address] [place] [address] [address] [place] [address] Referring Physician Neurosurgery 06/13/24 Carlos Eden DO [address] [place] [address] Otolaryngology 06/13/24 documented as of this encounter
--- OUTSIDE RECORDS SUMMARY | 2025-06-07 12:27 | XMS_ITS | Encounter Summary ---
Author Organization [employer] Sys [employer] Address [id number] [address] [place] [address] Care Team Providers Care Attendance Secretary Name Role Phone Sascha Larsen Primary Care Provider + [phone] Encounter Details Date Type Department Care Team (Late st Contact Info) Description 12/07/2024 Orders Only [facility] - Family Medicine [address] [place] [address] Minerva Saini CMA Encounter for screening for malignant neoplasm of prostate; Hyperlipidemia, unspecified hyperlipidemia type; Essential hypertension Social History Tobacco Use Types Packs/Day Years Used Date Smoking Tobacco: Former Cigarettes Passive Smoke Exposure: Past Smokeless Tobacco: Never Alcohol Use Standard Drinks/Week Comments Not Currently 0 (1 standard drink = 0.6 oz pur e alcohol) [facility] Utilities Answer Date Recorded In [...] any clubs o r organizations such as latter day groups, unions, fraternal or athletic groups, or [...] Answer Date Recorded Total Score 0 09/24/2024 [facility] [place] of Occupat ional Health - Occupational Stress [...] Internal Medicine - Family Medicine [address] [place] [address] documented as of this encounter [...] ORDERABLES Final R esult Performing Organization Address [facility]/ZIP Co de Phone Number MANUALLY TRANSCRIBED RESULTS * Prostatic specific antigen screen (12/07/2024) PSA 2.510 ng/mL MANUALLY TRANSCRIBED RESULTS 12/07/2024 us Sascha Larsen DO LAB BLOOD ORDERABLES Final R esult Performing Organization Address [facility] Co de Phone Number MANUALLY TRANSCRIBED RESULTS documented in this encounter Visit Diagnoses Diagnosis Encounter for screening for malignant neoplasm of prostate Hyperlipidemia, unspecified hyperlipidemia type Essential hypertension Unspecified essential hypertension documented in this encounter Additional Health Concerns Assessment Noted Time PHQ-9 Depression Total Score: 0 09/24/20 24 1:35 PM EST documented as of this encounter Care Teams Attendance Secretary Relationship Specialty Start Date End Date Sascha Larsen DO [address], [facility] [place] [address] PCP - General Family Medicine 09/23/22 documented as of this encounter
--- OUTSIDE RECORDS SUMMARY | 2025-06-07 12:27 | XMS_ITS | Encounter Summary ---
Author Organization [employer] Sys tem Address [id number] [address] [place] [address] Care Team Providers Care Siebel Crm Developer Name Role Phone Sascha Larsen Primary Care Provider + [phone] Encounter Details Date Type Department Care Team (Late st Contact Info) Description 12/20/2023 Telephone [facility] - Family Medicine [address] [place] [phone] AlanAlly edward, RAMIRO Social History Tobacco Use [...] How often do you attend chur or mandaen services? More than 4 times per year 04/14/2023 Do you belong to any clubs o r organizations such as methodist groups, unions, fraternal or athletic groups, or [...] Answer Date Recorded Total Score 3 12/14/2023 [facility] of Occupat ional Health - [...] Recorded Do you need help finding a [facility] and/or a training [...] - Family Medicine [address] [place] [address] documented as of this encounter Visit Diagnoses Not on filedocumented in this encounter Additional Health Concerns Assessment Noted Time PHQ-9 Depression Total Score: 3 12/14/19 24 9:29 AM EST documented as of this encounter Care Teams Siebel Crm Developer Relationship Specialty Start Date End Date Sascha Larsen DO [address], [place] [address] PCP - General Family Medicine 09/23/22 documented as of this encounter
--- OUTSIDE RECORDS SUMMARY | 2025-06-07 12:28 | XMS_ITS | Encounter Summary ---
Author Organization [employer] Address [id number] [address] [place] [address] Care Team Providers Care Supervisor Ride Assembly Name Role Phone Sascha Larsen DO Primary Care Provider + [phone] Encounter Details Date Type Department Care Team ([facility] Contact Info) Description 11/03/2022 Orders Only [facility] - Family Medicine [address] [place] [phone] External, Scanning Provider Social History Tobacco Use [...] Department Care Team (Late Contact Info) Description 05/13/2026 10:20 AM EDT Office Visit [facility] - Family Medicine [address] [place] [address] documented as of this encounter Procedures Procedure Name Priority Date/Time Associated Diagnosis Comments MULTIPLE LABS Routine 10/26/2022 documented in this encounter Results * Multiple labs (10/26/2022) 10/26/2022 us Scanning Provider External [place] [facility] Final Result MANUALLY TRANSCRIBED RESULTS documented in this encounter Visit Diagnoses Not on filedocumented in this encounter Care Teams Supervisor Ride Assembly Relationship Specialty Start Date End Date Sascha Larsen DO [address], [place] [address] PCP - General Family Medicine 09/23/22 documented as of this encounter
--- OUTSIDE RECORDS SUMMARY | 2025-06-07 12:28 | XMS_ITS | Encounter Summary ---
Author Organization [facility] [employer] [facility] Address [id number] [address] [place] [address] Care Team Providers Care Lamp Decorator Name Role Phone Sascha Larsen DO Primary Care Provider + [phone] Encounter Details Date Type Department Care Team (Late st Contact Info) Description 03/31/2023 Orders Only [facility] Internal Medicine - Family Medicine [address] [place] [address] External, Scanning Provider Social History Tobacco Use [...] - Family Medicine [address] [place] [address] documented as of this encounter Procedures Procedure Name Priority Date/Time Associated Diagnosis Comments MULTIPLE LABS Routine 03/31/2023 documented in this encounter Results * Multiple labs (03/31/2023) us Scanning Provider External MD IMAGING Final Result MANUALLY TRANSCRIBED RESULTS documented in this encounter Visit Diagnoses Not on filedocumented in this encounter Additional Health Concerns Assessment Noted Time PHQ-9 Depression Total Score: 0 03/28/20 11:33 AM EDT documented as of this encounter Care Teams Lamp Decorator Relationship Specialty Start Date End Date Sascha Larsen DO [address] [place] [address] PCP - General Family Medicine 09/23/22 documented as of this encounter
--- OUTSIDE RECORDS SUMMARY | 2025-06-07 12:28 | XMS_ITS | Encounter Summary ---
Author Organization [employer] s tem Address [id number] [address] [place] [address] Care Team Providers Care Imaging Technologist Name Role Phone Sascha Larsen DO Primary Care Provider + [phone] Encounter Details Date Type Department Care Team (Late Contact Info) Description 10/11/2022 Orders Only [facility] Internal Medicine - Family Medicine [address] [place] [address] Carole Ibrahim, STONEMASON-PAN TANK WORKER [address] [place] [address] [address] [place], [place] [id number] Social History Tobacco Use Types Packs/Day Years [...] Description 05/13/2026 10:20 AM EDT [facility] [address] [place] [address] documented as of this encounter Visit Diagnoses Not on filedocumented in this encounter Care Teams Imaging Technologist Relationship Specialty Start Date End Date Sascha Larsen DO [address], [place] [address] PCP - General Family Medicine 09/23/22 documented as of this encounter
--- OUTSIDE RECORDS SUMMARY | 2025-06-07 12:28 | XMS_ITS | Encounter Summary ---
Author Organization [employer] s tem Address [id number] [address] [place] [address] Care Team Providers Care Compensation And Hris Analyst Name Role Phone Sascha Larsen DO Primary Care Provider + [phone] Encounter Details Date Type Department Care Team ([facility] Contact Info) Description 10/11/2022 Orders Only [facility] Internal Medicine - Family Medicine [address] [place] [address] Yenny Almaguer MA 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[facility]); Foot pain, left Social History Tobacco Use [...] Medicine - Family Medicine [address] [place] [address] documented as of this encounter Procedures Procedure Name Priority Date/Time Associated Diagnosis Comments XR FOOT LT MIN 3 VWS Routine 09/29/2022 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[facility]) Foot pain, left documented in this encounter Results * X-ray foot left minimum 3 views (09/29/2022) Anatomical Region Laterality Modality Lower Extremities, MSK, Foot Left Com puted Radiography 09/29/2022 Carole Ibrahim TECHNICIANS AND TRADES WORKERS-PROFESSOR OF NURSING IMG DIAGNOSTIC IMAGING DEEDEE PHAN Final Result documented in this encounter Visit Diagnoses Diagnosis Connective tissue disease Unspecified diffuse connective tissue disease Foot pain, left Pain in soft tissues of limb documented in this encounter Care Teams Compensation And Hris Analyst Relationship Specialty Start Date End Date Sascha Larsen DO [address] [facility], [place] [address] PCP - General Family Medicine 09/23/22 documented as of this encounter
--- OUTSIDE RECORDS SUMMARY | 2025-06-07 12:28 | XMS_ITS | Encounter Summary ---
Author Organization [employer] [facility] tem Address [id number] [address] [place] [address] Care Team Providers Care Custodial Engineer Name Role Phone Sascha Larsen DO Primary Care Provider + [phone] Encounter Details Date Type Department Care Team ([facility] Contact Info) Description 03/23/2023 Orders Only [facility] Internal Medicine - Family Medicine [address] [place] [address] External, Scanning Provider Social History Tobacco Use [...] Upcoming Encounters Date Type Department Care Team ([facility] Contact Info) Description 05/13/2026 10:20 AM EDT [facility] [address] [place] [address] documented as of this encounter Procedures Procedure [...] on filedocumented in this encounter Care Teams Custodial Engineer Relationship Specialty Start Date End Date Sascha Larsen DO [address], [facility] [place] [address] PCP - General Family Medicine 09/23/22 documented as of this encounter
--- OUTSIDE RECORDS SUMMARY | 2025-06-07 12:28 | XMS_ITS | Encounter Summary ---
Author Organization [employer] tem Address [id number] [address] [place] [address] Care Team Providers Care Bowling Ball Finisher Name Role Phone Sascha Larsen DO Primary Care Provider + [phone] Reason for Visit * Reason Comments Med Refill Encounter Details Date Type Department Care Team (Late Contact Info) Description 09/27/2022 Refill [facility] Internal Medicine - Family Medicine [address] [place] [address] Sascha Larsen DO [address], [place] [address] Social History Tobacco Use Types Packs/Day Years [...] Medicine - Family Medicine [address] [place] [address] documented as of this encounter Visit Diagnoses Not on filedocumented in this encounter Care Teams Bowling Ball Finisher Relationship Specialty Start Date End Date Sascha Larsen, DO [address] [facility] [place] [address] PCP - General Family Medicine 09/23/22 documented as of this encounter
--- OUTSIDE RECORDS SUMMARY | 2025-06-07 12:28 | XMS_ITS | Encounter Summary ---
Author Organization [facility] [employer] Address [id number] [address] [place] [address] Care Team Providers Care Commercial Helicopter Pilot Name Role Phone Sascha Larsen DO Primary Care Provider + [phone] Reason for Visit * Reason Comments Med Refill Encounter Details Date Type Department Care Team (Late Contact Info) Description 03/12/2023 Refill [facility] Internal Medicine - Family Medicine [address] [place] [address] Sascha Larsen DO [address] [place] [address] Social History Tobacco Use Types Packs/Day Years [...] - Family Medicine [address] [place] [address] documented as of this encounter Visit Diagnoses Not on filedocumented in this encounter Care Teams Commercial Helicopter Pilot Relationship Specialty Start Date End Date Sascha Larsen DO [address], [place] [address] PCP - General Family Medicine 09/23/22 documented as of this encounter
--- OUTSIDE RECORDS SUMMARY | 2025-06-07 12:28 | XMS_ITS | Encounter Summary ---
Author Organization [employer] Sys tem Address [facility] [place][id number] [address] [place] [address] Care Team Providers Care Adult Manager Name Role Phone Sascha Larsen Primary Care Provider + [phone] Encounter Details Date Type Department Care Team (Late st Contact Info) Description 04/11/2023 Orders Only [facility] Internal Medicine - Family Medicine [address] [place] [address] Brook May CMA Encounter for screening for [...] often do you attend chur ch or bahai services? More than 4 times per year 04/14/2023 Do you belong to any clubs o r organizations such as denominational groups, unions, fraternal or athletic groups, or [...] Answer Date Recorded Total Score 0 04/15/2023 [facility] - Occupational Stress [...] you need help finding a [facility] career center and/or a training program? [...] Medicine - Family Medicine [address] [place] [address] documented as of this encounter Procedures Procedure [...] Lipoprotein 25 MANUALLY TRANSCRIBED RESULTS Blood 04/08/2023 us Sascha Larsen DO LAB BLOOD ORDERABLES Edited Result - Final MANUALLY TRANSCRIBED RESULTS * (ABNORMAL) Comprehensive metabolic [...] Larsen DO LAB BLOOD ORDERABLES [facility] Performing Organization Address City/[facility]/ZIP Co de Phone Number MANUALLY TRANSCRIBED RESULTS [...] documented as of this encounter Care Teams Adult Manager Relationship Specialty Start Date End Date Sascha Larsen DO [address] [place] [address] PCP - General Family Medicine 09/23/22 documented as of this encounter
--- OUTSIDE RECORDS SUMMARY | 2025-06-07 12:28 | XMS_ITS | Encounter Summary ---
Author Organization [facility] Address [facility] [id number] [address] [place] [address] Care Team Providers Care Business Process Manager Name Role Phone Sascha Larsen DO Primary Care Provider + [phone] Encounter Details Date Type Department Care Team (Late st Contact Info) Description 03/30/2023 Orders Only [facility] Internal Medicine - Family Medicine [address] [place] [address] Minerva Saini CMA Chest pain, unspecified type [...] - Family Medicine [address] [place] [address] documented as of this encounter Procedures Procedure [...] documented as of this encounter Care Teams Business Process Manager Relationship Specialty Start Date End Date Sascha Larsen DO [address], [place] [address] PCP - General Family Medicine 09/23/22 documented as of this encounter
--- NOTE | 2025-06-07 13:01 | XR_ITS ---
The [address] [address] Patient Name: MARVA TORRE MRN: [id number] date: 1955 Sex: M Assigned Patient Location: ER Current Patient Location: ER Accession/Order Number: [id number] Exam Date: 06/07/2025 13:53 Report Date: 06/07/2025 13:55 At the request of: MEENAKSHI ANGEL MD Procedure: XR chest 1V Plain film chest Single view HISTORY: Unsteady gait. Altered mental status. COMPARISON: CT chest 03/20/2023 FINDINGS: SUPPORT DEVICES: None POSTSURGICAL CHANGES: None HEART: Within normal limits PULMONARY GURJIT: Within normal limits MEDIASTINUM: Unremarkable LUNGS AND PLEURA: No acute lung process, pleural effusion or pneumothorax identified. BONY STRUCTURES: Intact ADDITIONAL FINDINGS None XR/XR chest 1V IMPRESSION: No acute process. Impression dictated by: Audie Cortes M.D. 06/07/2025 1:55 PM Dictation Location: [place] [address] Electronically authenticated by: [id number] Y Date: 06/07/2025 13:55
--- NOTE | 2025-06-07 13:01 | ECG_ITS ---
The [facility] Test Date: 2025-06-07 Pat Name: MARVA TORRE Department: Room: - Gender: Male Manager Chinese: : 1955 Requested By: [id number] Order Number: [id number] Reading MD: PATRIA ALFARO M.D. Measurements Intervals [place] Rate: 79 P: 60 UT: 138 QRS: -3 QRSD: 88 T: -30 QT: 352 QTc: 387 Interpretive Statements 1100 Sinus rhythm 1570 with occasional ventricular premature complexes INFERIOR INFARCT, AGE INDETERMINATE 8102 Low QRS voltage in chest leads 9150 abnormal ECG Compared to ECG 09/06/2024 13:03:38 Ventricular premature complex(es) now present Low QRS voltage now present T-wave abnormality no longer present Electronically Signed On 06-09-2025 15:31:03 EDT by PATRIA ALFARO M.D.
--- NOTE | 2025-06-07 13:01 | CT_ITS ---
The [address] [address] Patient Name: MARVA TORRE MRN: [id number] date: 1955 Sex: M Assigned Patient Location: ER Current Patient Location: ER Accession/Order Number: [id number] Exam Date: 06/07/2025 13:55 Report Date: 06/07/2025 14:02 At the request of: MEENAKSHI ANGEL MD Procedure: CT head/brain wo con Unenhanced head CT TECHNIQUE: Contiguous axial imaging of the head. The CT exam was performed using one or more the following dose reduction techniques: Automated exposure control, adjustment of the MA and/or Kv according to patient size, or use of the iterative reconstruction technique. COMPARISON: 04/09/2022 HISTORY: Altered mental status.. VENTRICLES: Within normal limits ATROPHY: Similar mild atrophy BRAIN PARENCHYMA: Adequate arthur-white matter differentiation identified. HEMORRHAGE: None HERNIATION: No mass effect or herniation INFARCTION: No recent vascular distribution infarction is seen. EXTRA-AXIAL FLUID COLLECTIONS None MIDBRAIN: Unremarkable JESSA: Unremarkable MEDULLA: Unremarkable SINUSES: Unremarkable ORBITS: Grossly unremarkable MASTOIDS: Unremarkable BONY STRUCTURES remote appearing nasal bone fracture. ADDITIONAL FINDINGS: Secretions in the nasopharyngeal region. CT/CT head/brain wo con IMPRESSION: No acute findings. Impression dictated by: Audie Cortes M.D. 06/07/2025 2:02 PM Dictation Location: [place] [address] Electronically authenticated by: [id number] Y Date: 06/07/2025 14:02
--- NOTE | 2025-06-07 13:02 | ED.GENADUL1 ---
HPI HPI - General Adult General Chief complaint: Altered Mental Status Stated complaint: FOGGY HEAD PT KEEPS FALLING ASLEEP Time Seen by Provider: 06/07/25 12:52 Source: patient Mode of arrival: Wheelchair Limitations: no limitations History of Present Illness HPI narrative: 70-year-old male presents because of syncopal episodes. This happened a few months ago and it seemed to resolve on its own and he did not get checked out. It happened again for the second time today and he passed out a few times. He was feeling foggy and thought he needed to eat so he and his stopped and ate but he did not feel better afterwards. He asked her to drive and while she was driving she states he looked like he fell asleep but she could not wake him up. He did not stop breathing or turned blue. Other than feeling tired he does not have any complaints such as pain and he has not had a fever or cough or shortness of breath. He has been sleeping fine at home. No new medications other than an inhaler. Related Data Home Medications ?Medication ?Instructions ?Recorded ?Confirmed aspirin 81 mg capsule 81 mg PO DAILY 02/01/24 06/07/25 fexofenadine-pseudoephedrine ER 1 tab PO Q24H PRN allergy symptoms 02/01/24 06/07/25 180 mg-240 mg tablet,ext.release 24 hr (Seema-D 24 Hour) folic acid 1 mg tablet 1 mg PO DAILY 02/01/24 06/07/25 hydroxychloroquine 200 mg tablet 200 mg PO BID 02/01/24 06/07/25 leflunomide 10 mg tablet 10 mg PO DAILY 02/01/24 06/07/25 lisinopril 20 1 tab PO DAILY 02/01/24 06/07/25 mg-hydrochlorothiazide 12.5 mg tablet methotrexate sodium 25 mg/mL 25 mg IM .weekly 02/01/24 06/07/25 injection solution montelukast 10 mg tablet 10 mg PO DAILY 02/01/24 06/07/25 omeprazole 40 mg capsule,delayed 40 mg PO DAILY 02/01/24 06/07/25 release potassium bicarbonate-citric acid 25 meq PO BID 02/01/24 06/07/25 25 mEq effervescent tablet (Klor-Con/EF) prednisolone acetate 1 % eye 1 drp ophthalmic (eye) Q6H PRN 02/01/24 06/07/25 drops,suspension IRISTIS simvastatin 20 mg tablet 20 mg PO DAILY 02/01/24 06/07/25 tamsulosin 0.4 mg capsule 0.4 mg PO BID 02/01/24 06/07/25 tramadol 50 mg tablet 50 mg PO BID PRN pain 02/01/24 06/07/25 carboxymethylcellulose sodium 1 % 2 drp ophthalmic (eye) DAILY PRN 02/02/24 06/07/25 eye liquid gel drops (Refresh dry eye(s) Liquigel) leucovorin calcium 5 mg tablet 5 mg PO .weekly 02/02/24 06/07/25 methylprednisolone 4 mg tablets in 4 mg PO DAILY PRN flare 02/02/24 06/07/25 a dose pack (Medrol (Nicolas)) acetaminophen 500 mg capsule 1,000 mg PO TID PRN pain 09/06/24 06/07/25 meloxicam 15 mg tablet 15 mg PO DAILY 09/06/24 06/07/25 budesonide-formoterol HFA 80 2 inh inhalation Q12H 06/07/25 06/07/25 mcg-4.5 mcg/actuation aerosol inhaler dutasteride 0.5 mg capsule 0.5 mg PO DAILY 06/07/25 06/07/25 fluticasone propionate 50 1 spray intranasal DAILY PRN nasal 06/07/25 06/07/25 mcg/actuation nasal congestion spray,suspension (24 Hour Allergy Relief) gabapentin 100 mg capsule 100 mg PO TID 06/07/25 06/07/25 primidone 50 mg tablet 50 mg PO Q8H 06/07/25 06/07/25 Allergies Allergy/AdvReac Type Severity Reaction Status Date / Time oxycodone Allergy Severe Hallucinati Verified 09/06/24 12:47 ng cephalexin Allergy Unknown Unknown Verified 09/06/24 12:47 Sulfa (Sulfonamide Allergy Unknown Rash Verified 10/17/24 11:33 Antibiotics) Review of Systems ROS Narrative A ten point review of systems is negative except as noted above. [facility] Medical History (Updated 06/07/25 @ 15:21 by Bakari rGimaldo MD) Intention tremor ?G25.2 - Other specified forms of tremor (ICD-10) Thyroid nodule ?E04.1 - Nontoxic single thyroid nodule (ICD-10) Cleft palate and cleft lip ?Q37.9 - Unspecified cleft palate with unilateral cleft lip (ICD-10) Uses hearing aid ?Z97.4 - Presence of external hearing-aid (ICD-10) S/P extracorporeal shock wave therapy (02/16/24) ?Z98.890 - Other specified postprocedural states (ICD-10) Undifferentiated connective tissue disease ?M35.9 - Systemic involvement of connective tissue, unspecified (ICD-10) H/O coronary angiogram ?Z98.890 - Other specified postprocedural states (ICD-10) Spondylolisthesis ?M43.10 - Spondylolisthesis, site unspecified (ICD-10) Osteoarthritis ?M19.90 - Unspecified osteoarthritis, unspecified site (ICD-10) Hiatal hernia ?K44.9 - Diaphragmatic hernia without obstruction or gangrene (ICD-10) History of esophageal dilatation ?Z98.890 - Other specified postprocedural states (ICD-10) Elevated partial thromboplastin time (PTT) ?R79.1 - Abnormal coagulation profile (ICD-10) History of perforated ear drum ?Z86.69 - Personal history of other diseases of the nervous system and sense organs (ICD-10) Hypertension ?I10 - Essential (primary) hypertension (ICD-10) Lumbar stenosis ?M48.061 - Spinal stenosis, lumbar region without neurogenic claudication (ICD-10) DDD (degenerative disc disease) Skin cancer ?C44.90 - Unspecified malignant neoplasm of skin, unspecified (ICD-10) Ureteral stone with hydronephrosis ?N13.2 - Hydronephrosis with renal and ureteral calculous obstruction (ICD-10) Hematuria ?R31.9 - Hematuria, unspecified (ICD-10) Cleft palate ?Q35.9 - Cleft palate, unspecified (ICD-10) Eye cancer ?C69.90 - Malignant neoplasm of unspecified site of unspecified eye (ICD-10) Osteoporosis ?M81.0 - Age-related osteoporosis without current pathological fracture (ICD-10) Lupus ?M32.9 - Systemic lupus erythematosus, unspecified (ICD-10) Rheumatoid arthritis ?M06.9 - Rheumatoid arthritis, unspecified (ICD-10) Hyperlipidemia ?E78.5 - Hyperlipidemia, unspecified (ICD-10) Kidney stone ?N20.0 - Calculus of kidney (ICD-10) Surgical History (Updated 10/17/24 @ 11:23 by Brook Whitten RN) History of lithotripsy ?Z98.890 - Other specified postprocedural states (ICD-10) History of repair of congenital cleft palate ?Z87.730 - Personal history of (corrected) cleft lip and palate (ICD-10) H/O eye surgery ?Z98.890 - Other specified postprocedural states (ICD-10) History of lumbar laminectomy ?Z98.890 - Other specified postprocedural states (ICD-10) H/O shoulder surgery ?Z98.890 - Other specified postprocedural states (ICD-10) History of tympanoplasty ?Z98.890 - Other specified postprocedural states (ICD-10) H/O Spinal surgery ?Z98.890 - Other specified postprocedural states (ICD-10) H/O esophagogastroduodenoscopy ?Z98.890 - Other specified postprocedural states (ICD-10) Hx of colonoscopy ?Z98.890 - Other specified postprocedural states (ICD-10) History of carpal tunnel release ?Z98.890 - Other specified postprocedural states (ICD-10) H/O arthroscopy of knee ?Z98.890 - Other specified postprocedural states (ICD-10) Hx of total knee arthroplasty ?Z96.659 - Presence of unspecified artificial knee joint (ICD-10) Family History (Updated 02/02/24 @ 08:19 by Stephanie Thakur RN) Other Family history of diabetes mellitus Family history of hypertension Family history of myocardial infarction Kidney stone Social History (Updated 02/02/24 @ 08:18 by Stephanie Thakur RN) Within the past year, how often did you have a drink containing alcohol: never Score interpretation: A score less than 4 is consistent with normal alcohol consumption. 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 General: The patient appears in no apparent distress. Patient seem to be sleeping when I walked into the room and he awoke to voice. Skin: Warm, dry, no pallor noted. There is no rash noted. Head: Normocephalic, atraumatic Eye: Normal conjunctiva, no drainage Ears, Nose, Mouth, and Throat: oral mucosa is moist. Nares patent. Cardiovascular: Regular Rate and Rhythm Respiratory: Patient is in no distress, no accessory muscle use, lungs are clear to auscultation, no wheezing, rales or rhonchi Back: non-tender GI: no tenderness to palpation, no masses appreciated. No rebound, guarding, or rigidity noted. Musculoskeletal: All joints have full range of motion Neurological: A&O, normal speech; upper and lower extremity strength intact Psychiatric: Cooperative Constitutional Vital Signs, click to edit/add: Last Vital Signs Temp 97.7 F 06/07/25 12:25 Pulse 67 06/07/25 14:40 Resp 11 L 06/07/25 14:40 BP 138/74 06/07/25 14:00 Pulse Ox 95 06/07/25 14:00 O2 Del Method Room Air 06/07/25 12:25 Course Vital Signs Vital signs: Vital Signs Temperature 97.7 F 06/07/25 12:25 Pulse Rate 80 06/07/25 12:25 Respiratory Rate 16 06/07/25 12:25 Blood Pressure 185/85 H 06/07/25 12:25 Pulse Oximetry 96 06/07/25 12:25 Oxygen Delivery Method Room Air 06/07/25 12:25 Temperature 97.7 F 06/07/25 12:25 Pulse Rate 67 06/07/25 14:40 Respiratory Rate 11 L 06/07/25 14:40 Blood Pressure 138/74 06/07/25 14:00 Pulse Oximetry 95 06/07/25 14:00 Oxygen Delivery Method Room Air 06/07/25 12:25 Medical Decision Making MDM Narrative Medical decision making narrative: His workup here is negative and his symptom has not recurred. He feels no symptoms at the present time and I do not feel that admission to the hospital is warranted. He is going to be discharged home and will follow-up with his electrical and instrument engineer and neurologist, both of these are established by him already. Treatment diagnosis and follow-up were discussed with the patient and his . Differential Diagnosis Differential Diagnosis: Syncope, dysrhythmia, medication side effect Lab Data Lab results reviewed: Yes I reviewed the patient's lab results Labs: Lab Results 06/07/25 06/07/25 Range/Units 12:35 14:35 WBC 7.3 (4.0-11.0) 10^3/uL RBC 5.15 (4.70-6.10) 10^6/uL Hgb 16.4 (14.0-18.0) g/dL Hct 47.9 (42.0-54.0) % MCV 93.0 (80.0-94.0) fL MCH 31.8 (25.9-34.0) pg MCHC 34.2 (29.9-35.2) g/dL RDW 13.8 (11.0-15.0) % Plt Count 201 (150-450) 10^3/uL MPV 10.2 (9.5-13.5) fL Neut % (Auto) 71.4 (43.0-75.0) % Lymph % (Auto) 15.3 L (20.5-60.0) % Hickman % (Auto) 9.8 (1.7-12.0) % Eos % (Auto) 1.4 (0.9-7.0) % Baso % (Auto) 0.4 (0.2-2.0) % Neut # (Auto) 5.2 (1.4-6.5) 10^3/uL Lymph # (Auto) 1.1 L (1.2-3.8) 10^3/uL Hickman # (Auto) 0.7 (0.3-0.8) 10^3/uL Eos # (Auto) 0.1 (0.0-0.7) 10^3/uL Baso # (Auto) 0.0 (0.0-0.1) 10^3/uL Abs Immat Gran (auto) 0.12 H (0.00-0.03) 10^3/uL Imm/Tot Granulo (auto) 1.7 H (0.0-0.5) % Sodium 141 (136-145) mmol/L Potassium 3.6 (3.5-5.1) mmol/L Chloride 107 (98-107) mmol/L Carbon Dioxide 24.6 (21.0-32.0) mmol/L Anion Gap 13.0 BUN 29.0 H (7.0-18.0) mg/dL Creatinine 0.92 (0.70-1.30) mg/dL Est GFR ( Amer) >60 (>=60 mL/min/1.73m^2) Est GFR (Non-Af Amer) >60 (>=60 mL/min/1.73m^2) BUN/Creatinine Ratio 31.5 Glucose 138 H (74-106) mg/dL Calcium 9.0 (8.5-10.1) mg/dL Troponin I High Sens 10.8 (4.0-76.1) pg/mL Urine Color Yellow (YELLOW) Urine Clarity Clear (CLEAR) Urine pH 5.5 (5.0-9.0) Ur Specific Stout >=1.030 A (1.005-1.025) Urine Protein Negative (NEG/TRACE) mg/dL Urine Glucose (UA) Negative (NEGATIVE) mg/dL Urine Ketones Negative (NEGATIVE) mg/dL Urine Occult Blood Negative (NEGATIVE) Urine Nitrite Negative (NEGATIVE) Urine Bilirubin Negative (NEGATIVE) Urine Urobilinogen 0.2 (0.2-1.0) EU/dL Ur Leukocyte Esterase Negative (NEGATIVE) Urine RBC 0-2 (0-2) #/HPF Urine WBC 0-2 A (NONE SEEN) #/HPF Ur Squamous Epith Cells Few A (NONE/RARE) #/LPF Urine Crystals None seen (None Seen) #/HPF Urine Bacteria Trace A (NONE SEEN) #/HPF Urine Casts None seen (NONE SEEN) #/LPF Urine Mucus Small A (NONE SEEN) Ethanol Quant <3 mg/dL Imaging Data Chest x-ray: Radiologist's impression: ITS Impressions Chest X-Ray 06/07/25 13:01 IMPRESSION: No acute process. Impression dictated by: Audie Cortes M.D. 06/07/2025 1:55 PM Dictation Location: [place] [address] Electronically authenticated by: [id number] Y Date: 06/07/2025 13:[address] 06/07/25 13:01 IMPRESSION: No acute findings. Impression dictated by: Audie Cortes M.D. 06/07/2025 2:02 PM Dictation Location: [place] [address] Electronically authenticated by: [id number] Y Date: 06/07/2025 14:02 ECG Data Attestation: I personally reviewed and interpreted this ECG as follows: (EKG on my interpretation shows sinus rhythm with rate of 79 and a PVC) Discharge Plan Discharge Chief Complaint: Altered Mental Status Clinical Impression: Syncope Patient Disposition: Home, Self-Care Time of Disposition Decision: 15:18 Condition: Good Mode of Transportation: Private Vehicle Prescriptions / Home Meds: No Action meloxicam 15 mg tablet 15 mg PO DAILY acetaminophen 500 mg capsule 1,000 mg PO TID PRN (Reason: pain) fexofenadine-pseudoephedrine [Seema-D 24 Hour] 180-240 mg tablet extended release 24 hr 1 tab PO Q24H PRN (Reason: allergy symptoms) aspirin 81 mg capsule 81 mg PO DAILY Klor-Con/EF 25 mEq tablet, effervescent 25 meq PO BID tamsulosin 0.4 mg capsule 0.4 mg PO BID folic acid 1 mg tablet 1 mg PO DAILY lisinopril-hydrochlorothiazide 20-12.5 mg tablet 1 tab PO DAILY hydroxychloroquine 200 mg tablet 200 mg PO BID leflunomide 10 mg tablet 10 mg PO DAILY methotrexate sodium 25 mg/mL solution 25 mg IM .weekly montelukast 10 mg tablet 10 mg PO DAILY omeprazole 40 mg capsule,delayed release(DR/EC) 40 mg PO DAILY prednisolone acetate 1 % drops,suspension 1 drp OPHTHALMIC (EYE) Q6H PRN (Reason: IRISTIS) simvastatin 20 mg tablet 20 mg PO DAILY tramadol 50 mg tablet 50 mg PO BID PRN (Reason: pain) leucovorin calcium 5 mg tablet 5 mg PO .weekly methylprednisolone [Medrol (Nicolas)] 4 mg tablets,dose pack 4 mg PO DAILY PRN (Reason: flare) carboxymethylcellulose sodium [Refresh Liquigel] 1 % drops, liquid gel 2 drp ophthalmic (eye) DAILY PRN (Reason: dry eye(s)) fluticasone propionate [24 Hour Allergy Relief] 50 mcg/actuation spray,suspension 1 spray intranasal DAILY PRN (Reason: nasal congestion) Rx Instructions: administer into each nostril dutasteride 0.5 mg capsule 0.5 mg PO DAILY primidone 50 mg tablet 50 mg PO Q8H gabapentin 100 mg capsule 100 mg PO TID budesonide-formoterol 80-4.5 mcg/actuation HFA aerosol inhaler 2 inh INHALATION Q12H Print Language: Belarusian Instructions: Syncope (ED) Additional Instructions: Follow-up with your electrical and instrument engineer and neurologist as well as your family doctor. Referrals: ANAND SUTTON [Primary Care Provider, Family Practice] - 1 week
[2025-06-07 13:10] LABS: Hematocrit 47.9 % (42.0-54.0); Hemoglobin 16.4 g/dL (14.0-18.0); Immature Granulocytes Abs Auto 0.12 10^3/uL (0.00-0.03); Immature Granulocytes Pct Auto 1.7 % (0.0-0.5); Lymphocytes Absolute Auto 1.1 10^3/uL (1.2-3.8); Mean Corpuscular HGB Conc 34.2 g/dL (29.9-35.2); Mean Corpuscular Hemoglobin 31.8 pg (25.9-34.0); Mean Corpuscular Volume 93.0 fL (80.0-94.0); Platelet Count 201 10^3/uL (150-450); Red Blood Count 5.15 10^6/uL (4.70-6.10); White Blood Count 7.3 10^3/uL (4.0-11.0)
[2025-06-07 13:31] LABS: Anion Gap 13.0; Blood Urea Nitrogen 29.0 mg/dL (7.0-18.0); Calcium 9.0 mg/dL (8.5-10.1); Carbon Dioxide 24.6 mmol/L (21.0-32.0); Chloride 107 mmol/L (98-107); Estimated GFR (African America >60 (>=60 mL/min/1.73m^2); Estimated GFR (Non-African Ame >60 (>=60 mL/min/1.73m^2); Glucose 138 mg/dL (74-106); Potassium 3.6 mmol/L (3.5-5.1); Sodium 141 mmol/L (136-145)
[2025-06-07 14:50] LABS: Glucose Urine UA NEGATIVE (NEGATIVE)
[2025-06-07 15:07] LABS: Cast Seen? NONE SEEN #/LPF (NONE SEEN); Crystals Seen? None Seen #/HPF (None Seen)
== END 2025-06-07 15:44 | disposition home or self-care (01) ==
PROVIDERS: Emergency Provider Emergency Medicine; PCP Family Medicine
DX: R55 Syncope and collapse (principal); Z96.659 Presence of unspecified artificial knee joint; Z87.891 Personal history of nicotine dependence; R41.82 Altered mental status, unspecified; Z79.899 Other long term (current) drug therapy
CPT/HCPCS: 36415; 70450; 71045; 80048; 80320; 81001; 84484; 85025; 93005; 99285

== ENCOUNTER 2025-06-14 07:35 | Outpatient (OUT) | payer MEDICARE, SELFPAY ==
--- OUTSIDE RECORDS SUMMARY | 2025-06-14 07:42 | XMS_ITS | CCD ---
Author Organization [facility] Care Team Providers Care Bag End Sewer Name Role Phone REBEKAH REED Unavailable Unavailable REBEKAH REED Unavailable Unavailable DO Sascha Sutton Primary Care Provider MD Adam Davis Attending Provider Herman, DO Caicedo Primary Care Provider [phone] WILLOW Sanchez Attending Provider KARIN Ibrahim Attending Provider DO Sascha Sutton Primary Care Provider [phone] WILLOW Sanchez Attending Provider DO Sascha Sutton Primary Care Provider [phone] WILLOW Sanchez Attending Provider PAY ., DR [...] Unavailable Unavailable DO Melanie Trujillo Attending Provider [phone] Dr. Alfonso Trujillo Attending Unava ilable Herman, Dr. Sascha Espinoza Primary Care Unava ildonaldo Trujillo, Dr. Alfonso Parham Attending Jennie Trujillo, Dr. Alfonso Parham Referring Unava miguel Sutton, Dr. Sascha Espinoza Primary Care Unava ilable Furcristoferng, DO Sascha Primary Care Provider [phone] Furcristoferng, DO Sascha Attending Provider [phone] MD Edenilson Reinoso Jr Emergency Provider DO Romel Orta Emergency Provider Unavai MD Zac Aguirre Attending Provider TIM SanchezC Christine Gaviria Attending Provider MD Zac Muniz Referring Provider SASCHA SUTTON Primary Care Physician Aquilesng, DO Sascha Primary Care Provider MD Zac Muniz Attending Provider Furlong, DO Sascha Primary Care Provider [phone] MD Zac Muniz Attending Provider Furlong, DO Sascha Primary Care Provider MD Romel Davis Attending Provider Herman, DO Sascha Primary Care Provider MD Zac Muniz Attending Provider MD Romel Davis Attending Provider Aquilesng, DO Sascha Primary Care Provider MD Romel Davis Attending Provider MD Zac Muniz Attending Provider [phone] Aquilesng, DO Sascha Primary Care Provider MD Romel Davis Attending Provider [phone] Herman, DO Sascha Attending Provider SASCHA SUTTON Referring Unavailable SASCHA SUTTON Primary Care Unavailable Unavailable Primary Care Provider Unavailabl e Sascha Sutton MD Primary Care Provider WILLOW Hernandez Attending [...] Unavailable Furlong, DO Sascha Primary Care Provider [phone] MD Mckenzie Khalil Attending Provider MD Romel Davis Attending Provider Furlong, DO Sascha Primary Care Provider [phone] WILLOW Hernandez Attending Provider Furlong, DO Sascha [...] Provider MD Jaime Murcia II Attending Provider MARCOS Fonseca Attending Provider [phone] Edenilson Mcleod MD Primary Care Provider Jaime Murcia MD Attending Provider Raymundo Myriam RODRÍGUEZ Attending Provider Furlong DO, Sascha Primary Care Provider Romel Dvais MD Attending Provider Mckenzie Khalil MD Unavailable Murandrea FERRELL Carlos W Unavailable [phone] Mckenzie Khalil MD Unavailable Furloosmani DO, Sascha G Primary Care Provider Edenilson Mcleod MD Primary Care Provider Jaime Murcia MD Attending Provider Furloosmani DO Sascha Attending Provider [phone] Mckenzie Khalil MD Unavailable Furlong DO, Sascha Primary Care Provider Matthew Harrell PA-C Emergency Provider Romel Davis MD Attending Provider Sascha Sutton MD Primary Care Provider Furlong DO, Sascha Primary Care Provider Jaime Murcia MD Attending Provider Furlong DO Sascha Attending Provider Matthew Harrell PA-C Emergency Provider Romel Davis MD Attending Provider Furloosmani DO, Sascha Primary Care Provider Jaime Murcia MD Attending Provider Martha Gomes MD Emergency Provider Marley Dumont MD Admit Provider Marley Dumont MD Attending Provider Yohan ONEAL, Gabi Attending Provider Rita Matt MD Other Provider Furlong DO, Sascha G Primary Care Provider [phone] Evaristo ONEAL, Mckenzie Unavailable Furlong DO, Sascha Primary Care Provider Furlong DO, Sascha Attending Provider [phone] Furlong DO, Sascha Primary Care Provider Ryan ONEAL, Romel Attending Provider Furlong DO, Sascha Primary Care Provider Twin ONEAL, Jaime Chapa Attending Provider [phone] Laura RED LEAD BURNER-C, Christine Gaviria Attending Provider CARLOS EDEN Attending Unavailable WHIT TAYLOR Attending Unavailable KALI CONKLIN Attending Unavailable KALI CONKLIN Attending Unavailable KALI CONKLIN Attending Unavailable KALI CONKLIN Attending Unavailable MURCARLOS ROGER W Attending Unavailable MURCARLOS ROGER W Attending Unavailable MCKENZIE KHALIL Referring Unavailable KALI CONKLIN Attending Unavailable WHIT TAYLOR Attending Unavailable KALI CONKLIN A Attending Unavailable TAYLORWHIT JASSO Attending Unavailable KALI CONKLIN Attending Unavailable SHABNAM CONNELL Attending Unavailable KATERIN, KALI A Attending Unavailable BROWN, KALI A Attending Unavailable BROWNKALI A Referring Unavailable Furlong, Sascha Primary Care Unavailable Romel Davis Admitting Unavailable Romel Davis Attending Unavailable Furlong, Sascha Primary Care Unavailable Matthew Harrell Attending Unavailable Matthew Harrell Admitting Unavailable Murcek, Carlos Attending Unavailable MurceCarlos rabago Admitting Unavailable Furlong, Sascha Primary Care Unavailable Furlong, Sascha Admitting Unavailable Furlong, Sascha Attending Unavailable Furlong, Sascha Primary Care Unavailable Jaime Murcia II Admitting UnavailJaime Mandujano II Attending Unavailabl e Gabi Almanzar Attending Unavailable Rita Matt Consulting Unavailable Furlong, Sascha Primary Care Unavailable Marley Dumont Admitting Unavailable Furlong, Sascha Primary Care Unavailable Davis, Romel Admitting Unavailable Davis, Romel Attending Unavailable Edenilson Mcleod Primary Care Unavailable Davis, Romel Attending Unavailable Davis, Romel Admitting Unavailable Edenilson Mcleod Primary Care Unavailable Jaime Murcia II Attending Unavailabl e Twin HOOKER, Jaime Chapa Admitting Unavailabl e ObermeyerChristine Attending Unavailable ObermeyerChristine Admitting Unavailable Furlong, Sascha Primary Care Unavailable Furlong, Sascha Primary Care Unavailable Twin HOOKER, Jaime Chapa Admitting Unavailabl e Baker II, Jaime Chapa Attending Unavailabl e Furlong, Sascha Primary Care Unavailable Davis, Romel Admitting Unavailable Davis, Romel Attending Unavailable Furlong, Sascha Primary Care Unavailable Jaime Murcia II Attending Unavailabl e BakerJaime mojica II Admitting Unavailabl e Furlong, Sascha Primary Care Unavailable Twin HOOKER, Jaime Chapa Admitting Unavailabl e Tiwn HOOKER, Jaime Chapa Attending Unavailabl Edenilson Gipson Primary Care Unavailable Myriam Fonseca Attending Unavailable Myriam Fonseca Admitting Unavailable FurlongSascha Admitting Unavailable FurlongSascha Attending Unavailable Furlong, Sascha Primary Care Unavailable FURLONG, SASCHA Candelaria Attending Unavailable FURCRISTOFERNGSASCHA Referring Unavailable FURLONG, SASCHA Candelaria Primary Care Unavailable FURLONGSASCHA Attending Unavailable FURLONGSASCHA Referring Unavailable FURLONG, SASCHA Candelaria Primary Care Unavailable FURLONG, SASCHA Candelaria Attending Unavailable FURLONGSASCHA Referring Unavailable FURLONG, SASCHA Candelaria Primary Care Unavailable FURLONG, SASCHA Candelaria Attending Unavailable FURLONGSASCHA Referring Unavailable FURLONG, SASCHA Candelaria Primary Care Unavailable FURLONG, SASCHA Candelaria Attending Unavailable FURLONG, SASCHA Candelaria Referring Unavailable FURLONG, SASCHA Candelaria Primary Care Unavailable FURLONG, SASCHA Candelaria Attending Unavailable FURLONGSASCHA Referring Unavailable FURLONG, SASCHA Candelaria Primary Care Unavailable FURLONG, SASCHA Candelaria Attending Unavailable FURLONG, SASCHA Candelaria Referring Unavailable FURLONG, SASCHA Candelaria Primary Care Unavailable FURLONG, SASCHA G Attending Unavailable FURLONG, SASCHA G Referring Unavailable FURLONG, SASCHA G Primary Care Unavailable FURLONG, SASCHA G Referring Unavailable FURLONG, SASCHA G Primary Care Unavailable FURLONG, SASCHA G Attending Unavailable FURLONG, SASCHA G Referring Unavailable FURLONG, SASCHA G Primary Care Unavailable MYRA ORLANDO Attending Unavailable FURLONG, SSACHA G Referring Unavailable FURLONG, SASCHA G Primary Care Unavailable MUNIZ, Zac R Attending Unavailable MUNIZ, Zac R Attending Unavailable MUNIZ, Zac R Referring Unavailable MUNIZ, Zac R Attending Unavailable MUNIZ, Zac R Attending Unavailable MUNIZ, Zac R Attending Unavailable MUNIZ, Zac R Attending Unavailable MUNIZ, Zac R Attending Unavailable MUNIZ, Zac R Attending Unavailable MUNIZ, Zac R Attending Unavailable Allergies Allergy Classification Reported Allergen(s) Allergy Type Date of Onset Reaction(s) Facility Calcium Carbonate (4 sources) Calcium Carbonate Drug Allergy 04-09-20 24 Nausea [facility] Cephalosporins (antibiotic) (8 sources) Cephalexin Drug Allergy 04-09-20 Unknown Reaction [facility] Magnesium (4 sources) Magnesium Drug Allergy 04-09-20 Nausea [facility] Opioid Agonists (4 sources) oxyCODONE Drug Allergy 04-09-20 Hallucinating [facility] Sulfonamides (antibiotic) (4 sources) Sulfonamides (Antibiotic) Drug Allergy 04-09-20 24 Rash [facility] (20 sources) cephalexin; Translations: [CEPHALEXIN] Drug Allergy 04-25-20 18 Unknown (qualifier value) [facility] Rep[facility] (20 sources) oxyCODONE; Translations: [OXYCODONE] Drug Allergy 04-25-20 18 Hallucinations (finding), Hallucinations [facility] (20 sources) Sulfonamides (Antibiotic); Translations: [SULFA (SULFONAMIDE ANTIBIOTICS)] Propensity to adverse reactions to drug (disorder) 05-20-20 14 Other (See Comments), Rash [facility] (2 sources) ASPIRIN, BUFFERED; Translations: [ASPIRIN, BUFFERED] Propensity to adverse reactions to drug (disorder) 04-25-20 18 AOF [facility] (20 sources) Calcium Carbonate; Translations: [calcium carbonate] Drug Allergy 07-19-20 19 GI intolerance, Nausea [facility] Comment on above: Is able to take aspi rin (20 sources) Cephalosporins (Antibiotic); Translations: [Cephalosporins] Allergy to substance 05-20-20 14 Unknown, Other (See Comments) [facility] (20 sources) Magnesium; Translations: [magnesium] Drug Allergy 07-19-20 19 GI intolerance, GI Disturbance, Nausea [facility] Comment on above: Is able to take aspi rin (1 source) Sulfonamides (Antibiotic) Drug allergy (disorder) [facility] Repository (4 sources) Sulfamethoxazole; Translations: [sulfa] Drug Allergy Unknown [facility] 250 DO Work Phone: (11 sources) Sulfonamides (Antibiotic); Translations: [sulfa drugs] Drug allergy Unknown (qualifier value) [facility] (20 sources) ASPIRIN,BUFFD-ELIZABETH CIUM CARB-MAG; Translations: [ASPIRIN,BUFFD-CA LCIUM CARB-MAG] Propensity to adverse reactions to drug (disorder) 09-29-20 22 Vomiting [facility] (20 sources) Aspirin Drug Allergy 10-13-20 15 [facility] [employer] (20 sources) Sulfonamides (Antibiotic) Drug Allergy 05-20-20 14 Rash [facility] [employer] (1 source) Aspirin Drug Allergy Unknown [facility] [employer] Other (1 source) Sulfacetamide in [place] Drug allergy Unknown [facility] [employer] Other Medications Current Medications Medication Drug Class(es) Dates Sig (Normalized) Sig (Original) acetaminophen 500 mg oral tablet (20 sources) Start: 05-09-2023 take 1 mg by mouth every six hours acetaminophen 500 mg Tab mg tab(s), Oral, q6hr, Refills(s) 0 Start Date: 05/09/23 Status: Ordered Repeat number: 1 Start: 05-09-2023 End: 02-16-2025 acetaminophen (TYLENOL EXTRA STRENGTH) 500 mg tablet Take 2 tablets (1,000 mg total) by mouth as needed in the morning and 2 tablets (1,000 mg total) as needed at noon and 2 tablets (1,000 mg total) as needed in the evening for pain. 05/09/2023 Active Start: 05-09-2023 take 2 tablets [...] as needed for Pain March 31, 2023 12:00am Start: 03-31-2023 Acetaminophen Active 1000 MG PO [...] 0 Refills: 0 Ordered: 30-Mar-2023 DO Active amoxicillin 500 mg oral capsule (3 sources) Penicillin-class Antibacterial Start: 01-25-2025 End: 01-30-2025 take 1 capsule by mouth three times daily amoxicillin (AMOXIL) 500 mg capsule Take 1 capsule (500 mg total) by mouth 3 (three) times a day for 5 days. 15 capsule 01/25/2025 01/30/2025 Active Start: 10-09-2024 End: 10-19-2024 take 1 tablet [...] Refills(s) 0 Start Date: 09/19/23 Status: Ordered Repeat number: 1 Start: 05-09-2023 take 1 mg by mouth e very four hours aspirin 325 mg oral capsule mg cap(s), Oral, q4hr, Refills(s) 0 Start Date: 05/09/23 Status: Ordered Start: 07-19-2019 End: 05-01-2024 take 1 tablet by mouth once daily in the morning Aspirin 325 mg Tablet Discontinued 325 MG PO Every morning July 19, 2019 12:00am April 04, 2023 1:11pm Start: 11-05-2018 End: 11-05-2018 take 1 tablet by mouth once daily Aspirin (Aspir-81) 8 1 mg Tablet,Delayed Release (Dr/Ec) Discontinued 325 MG PO Daily November 05, 2018 1:00am November 05, 2018 1:25pm End: 05-01-2024 aspirin 81 mg chewable table t Chew 1 tablet (81 mg total) and swallow in the morning. 05/01/2024 Discontinued (Therapy completed) azithromycin 250 mg oral tablet (1 source) Macrolide Antimicrobial Start: 10-02-2024 End: 10-07-2024 azithromycin (ZITHROMAX) 250 mg tablet Take 2 tablets the first day, then 1 tablet daily for 4 days. 6 tablet 10/02/2024 10/07/2024 Active B Complex Vitamins (vitamin B complex) tablet (1 source) B Complex Vitami ns (vitamin B complex) tablet as directed Orally 0 Active biotin 10 mg oral capsule (20 sources) Start: 11-19-2024 End: 11-14-2025 take 1 capsule by mouth in the morning biotin 10 MG capsule Indications: Intention tremor Take 1 capsule (10 mg) by mouth in the morning and 1 capsule (10 mg) before bedtime. 60 capsule 11 11/19/2024 05/15/2025 Discontinued (Ineffective) Start: 11-19-2024 End: 11-14-2025 take 10 mg by mouth in the morning biotin 10,000 mcg capsule Take 10 mg by mouth in the morning and 10 mg before bedtime. 11/19/2024 02/25/2025 Discontinued (Therapy completed) Start: 11-09-2024 End: 01-12-2025 take 1 tablet by mouth once daily Biotin 10 mg tablet Discontinued 10 MG PO Daily November 09, 2024 1:00am January 12, 2025 12:57pm Start: 10-15-2024 End: 11-14-2024 take 1 capsule by mouth in the morning biotin 10 MG capsule Indications: Intention tremor Take 1 capsule (10 mg) by mouth in the morning and 1 capsule (10 mg) before bedtime. 60 capsule 10/15/2024 11/14/2024 Active budesonide 0.032 mg/actuat metered dose nasal spray (20 sources) Corticosteroid budesonide (GUSTAVO KEYLA AQUA) 32 mcg/actuation nasal spray 62,500 sprays. Active budesonide (Rhin ocort AQ) 32 MCG/ACT nasal spray 62,500 sprays Active Budesonide / formoterol (2 sources) Corticosteroid, beta2-Adrenergic Agonist Start: 05-28-2025 take 2 puff(s) by inhalation in the morning budesonide-formoteroL (SYMBICORT) 80-4.5 mcg/actuation inhaler Indications: Moderate persistent asthma, unspecified whether complicated Inhale 2 puffs in the morning and 2 puffs before bedtime. 10.2 g 5 05/28/2025 Active budesonide-formoterol 80 mcg-4.5 mcg/inh Inh Aer w/adapter (1 source) Start: 06-12-2025 budesonide-formoterol 80 mcg-4.5 mcg/inh Inh Aer w/adapter 2 inh, Refill(s) 0 Start Date: 06/12/25 Status: Ordered Repeat number: 1 carboxymethylcellulose 0.01 mg/mg ophthalmic gel (20 sources) Start: 03-31-2023 apply 1 drop(s) into the eye(s) once daily as needed Carboxymethylcellulose Sodium (Refresh Liquigel) 1 % Drops, Liquid Gel Active 1 DROPS EYE-BOTH Daily as needed for dry eye(s) March 31, 2023 12:00am Carboxymethylcellulose Sodium (Refresh Liquigel) 1 % Drops, Liquid Gel (7 sources) Start: 03-31-2023 apply 1 drop(s) into the eye(s) once daily Carboxymethylcellulose Sodium (Refresh Liquigel) 1 % Drops, Liquid Gel Active 1 DROPS EYE-BOTH Daily March 31, 2023 12:00am colchicine 0.6 mg oral tablet (20 sources) Start: 12-19-2023 End: 10-17-2024 colchicine 0.6 MG tablet 12/19/2023 Active Start: 09-30-2023 End: 09-24-2024 take 1 capsule by mouth in the morning colchicine (MITIGARE) 0.6 mg capsule Take 1 capsule (0.6 mg total) by mouth in the morning. 09/30/2023 09/24/2024 Discontinued (Therapy completed) Colchicine 0.6 M G 5 mL Orally Active dexamethasone 2 mg oral tablet (7 sources) Corticosteroid Start: 03-21-2025 End: 03-30-2025 take 1 tablet by mouth once daily dexAMETHasone (Decadron) 2 MG tablet Indications: Piriformis syndrome of right side Take 1 tablet by mouth once daily for 7 days. 7 tablet 1 03/21/2025 Active Diclofenac (12 sources) Nonsteroidal Anti-inflammatory Drug Start: 01-12-2025 Diclofenac Sodium (Voltaren Arthritis Pain) 1 % gel Active 2 GM TOPICAL Four times daily January 12, 2025 1:00am apply to single elbow, wrist or hand; for hand includes palm/fingers/back of hand Start: 01-12-2025 Diclofenac Sod ium (Voltaren Arthritis Pain) 1 % gel Active 2 GM TOPICAL Four times daily January 12, 2025 12:00am apply to single elbow, wrist or hand; for hand includes palm/fingers/back of hand dutasteride 0.5 mg oral capsule (7 sources) 5-alpha Reductase Inhibitor Start: 04-29-2025 End: 04-24-2026 take 1 capsule by mouth once daily dutasteride 0.5 mg Cap 0.5 mg = 1 cap(s), Oral, Daily, X 30 day(s), # 30 cap(s), Refills(s) 11, Pharmacy: [facility]/pharmacy #[id number], 173, cm, 04/29/25 9:39:00 EDT, Height/Length Dosing, 99, kg, 04/29/25 9:39:00 EDT, Weight Dosing Start Date: 04/29/25 Stop Date: 04/24/26 Status: Ordered Quantity: 30.0 Unit: cap(s) Repeat number: 12 fexofenadine (10 sources) Histamine-1 Receptor Antagonist Start: 05-09-2023 Seema D OTC 24HR Oral, Daily, Refill(s) 0 Start Date: 05/09/23 Status: Ordered Repeat number: 1 Start: 05-09-2023 Seema D OTC 24HR Oral, Daily, Refill(s) 0 Start Date: 05/09/23 Status: Ordered fexofenadine / Pseudoephedrine (20 sources) alpha-Adrenergic Agonist, Histamine-1 Receptor Antagonist Start: 03-31-2023 take 1 tablet by mouth once daily as needed, then take 1 tablet by mouth every twenty-four hours as needed Fexofenadine-Pseudoephedrine (Seema-D 24 Hour) 180-240 mg Tablet Extended Release 24 Hr Active 1 TAB PO Daily as needed for allergies March 31, 2023 12:00am Start: 03-31-2023 take 1 tablet by christopher th once daily as needed, then take 1 tablet by mouth every twenty-four hours as needed Fexofenadine-Pseudoephedrine (Seema-D 24 Hour) 180-240 mg Tablet [...] TAB PO Daily March 31, 2023 12:00am take 1 tablet by christopher th once as needed fexofenadine-pseudoephedrine (SEEMA-D 24) 180-240 mg per 24 hr tablet Take 1 tablet by mouth as needed. Active take 1 tablet by christopher th once daily as needed Fexofenadine-Pseudoephedrine (SEEMA-D 24 HOUR PO) Take 1 tablet by mouth Daily as needed Active 30 actuat fluticasone furoate 0.1 mg/actuat / umeclidinium 0.0625 mg/actuat / vilanterol 0.025 mg/actuat dry powder inhaler (2 sources) Anticholinergic, Corticosteroid, beta2-Adrenergic Agonist Start: 09-24-2024 End: 10-08-2024 take 1 puff(s) by inhalation once daily oepvnljtuwm-ttkzckemv-qatjahwd (TRELEGY ELLIPTA) 100-62.5-25 mcg blister with device Inhale 1 puff once daily for 14 days. 1 each 09/24/2024 10/08/2024 Active folic acid 1 mg oral tablet (20 sources) Start: 05-09-2023 take 1 tablet by mouth once daily folic acid 1 mg Tab mg tab(s), Oral, Daily, Refills(s) 0 Start Date: 05/09/23 Status: Ordered Repeat number: 1 Start: 04-25-2018 take 1 tablet by christopher twice daily Folic Acid 1 mg tablet Active 1 MG PO Twice daily April 25, 2018 12:00am Start: 04-25-2018 take 1-2 mg by mouth once baldomero y Folic Acid Active 1 - 2 MG PO Daily April 25, 2018 12:00am gabapentin 100 mg oral capsule (11 sources) Anti-epileptic Agent Start: 04-16-2025 End: 05-15-2026 gabapentin 100 mg Cap 100 mg = 1 cap(s), Refills(s) 0 Start Date: 06/12/25 Status: Ordered Repeat number: 1 hydroCHLOROthiazide 12.5 mg / lisinopril 20 mg oral tablet (20 sources) Thiazide Diuretic, Angiotensin Converting Enzyme Inhibitor Start: 09-19-2023 hydrochlorothiazi de-lisinopril 12.5 mg-20 mg Tab 1 tab(s), Refill(s) 0 Start Date: 06/12/25 Status: Ordered Repeat number: 1 Start: 05-12-2019 End: 02-24-2025 take 1 tablet by mouth once daily lisinopril-hydroCHLOROthiazide (PRINZIDE,ZESTORETIC) 20-12.5 mg per tablet TAKE 1 TABLET BY MOUTH DAILY 90 tablet 1 02/24/2025 Active hydroxychloroquine sulfate 200 mg oral tablet (20 sources) Antimalarial, Antirheumatic Agent Start: 05-09-2023 take 1 mg by mouth once daily hydroxychloroquine 200 mg Tab mg tab(s), Oral, Daily, Refills(s) 0 Start Date: 05/09/23 Status: Ordered Repeat number: 1 Start: 04-25-2018 take 1 tablet by christopher th twice daily hydroxychloroquine (Plaquenil) 200 MG tablet hydroxychloroquine 200 mg tablet TAKE 1 TABLET BY MOUTH TWICE A DAY 05/09/2023 Active leflunomide 10 mg oral tablet (20 sources) Antirheumatic Agent Start: 04-25-2018 take 1 mg by mouth once daily leflunomide 10 mg oral tablet mg tab(s), Oral, Daily, Refills(s) 0 Start Date: 05/09/23 Status: Ordered Repeat number: 1 leucovorin 5 mg oral tablet (20 sources) Folate Analog Start: 04-25-2018 leucovorin (WELLCOVORIN) 5 mg tablet 12/06/2024 Active lidocaine 0.05 mg/mg medicated patch (12 sources) Antiarrhythmic, Amide Local Anesthetic Start: 01-12-2025 apply 1 dose topically every twenty-four hours Lidocaine (Lidoderm) 5 % adhesive patch,medicated Active 2 PATCH TOPICAL Q24H January 12, 2025 1:00am leave on most painful area for up to 12 hrs lisinopril 20 mg oral tablet (20 sources) Angiotensin Converting Enzyme Inhibitor Start: 05-09-2023 take 1 mg by mouth once daily lisinopril 20 mg Tab mg tab(s), Oral, Daily, Refills(s) 0 Start Date: 05/09/23 Status: Ordered Start: 04-25-2018 End: 05-12-2019 take 1 tablet by mouth once daily Lisinopril 20 mg tablet Discontinued 20 MG PO Daily April 25, 2018 12:00am May 12, 2019 2:29am loratadine 10 mg oral tablet (20 sources) Start: 03-28-2023 take 1 tablet by mouth in the morning loratadine (CLARITIN) 10 mg tablet Indications: Allergic rhinitis Take 1 tablet (10 mg total) by mouth in the morning. 30 tablet 03/28/2023 Active meloxicam 15 mg oral tablet (20 sources) Nonsteroidal Anti-inflammatory Drug Start: 12-17-2024 End: 04-10-2025 take 1 tablet by mouth once daily Meloxicam 15 mg tablet Discontinued 0 .ROUTE .COMPLEX March 18, 2025 3:04pm April 10, 2025 10:03am TAKE 1 TABLET BY MOUTH DAILY Start: 08-29-2024 End: 12-17-2024 meloxicam 7.5 mg/5 mL suspen cruz daily 08/29/2024 12/17/2024 Discontinued (Duplicate order) Start: 08-29-2024 End: 12-17-2024 meloxicam 15 mg Tab Refills( s) 0 Start Date: 09/03/24 Status: Ordered Repeat number: 1 2 ml methotrexate 25 mg/ml injection (20 sources) Folate Analog Metabolic Inhibitor Start: 10-08-2024 Methotrexate Sodium (methotrexate PF) 50 MG/2ML syringe 10/08/2024 Active Start: 05-09-2023 inject 1 mg intravenously once methotrexate 1 g injection mg/m2, IV, Once, Refills(s) 0 Start Date: 05/09/23 Status: Ordered Repeat number: 1 Start: 05-09-2023 inject 1 mg intravenously once methotrexate 1 g injection mg/m2, IV, Once, Refills(s) 0 Start Date: 05/09/23 Status: Ordered Start: 11-05-2018 inject 25 mg by subc utaneous injection every week Methotrexate Sodium 25 mg/mL solution Active 25 MG SUBCUT every week November 05, 2018 1:00am taken on saturdays Start: 11-05-2018 inject 25 mg by subc utaneous injection every week Methotrexate Sodium Active 25 MG SUBCUT every week November 05, 2018 1:00am taken on saturdays methotrexate, PF , 25 mg/mL chemo syringe Active End: 12-17-2024 methotrexate (Xatmep) 2.5 MG /ML oral solution Take 2.5 mg by mouth Active Methotrexate 2.5 MG 1 needle Orally once a week *please review for potential _update for e-prescription and drug interaction check* Active Methotrexate Sod ium 1 GM Injection Solution Reconstituted USE DIRECTED. Quantity: 0 Refills: 0 Ordered: 30-Mar-2023 DO Active methylPREDNISolone 4 mg oral tablet (20 sources) Corticosteroid Start: 06-03-2025 methylPREDNISo lone (Medrol Dospak) 4 MG tablets Indications: Tenosynovitis of right lower leg TAKE BY MOUTH INSTRUCTED - PER PACKAGE INSTRUCTIONS 21 tablet 06/03/2025 Active Start: 01-30-2025 End: 03-21-2025 methylPREDNISolone (Medrol D ospak) 4 MG tablets Indications: Tenosynovitis of right lower leg Follow schedule on MEDROL PACK package instructions to be used as directed 21 tablet 01/30/2025 03/21/2025 Discontinued Start: 01-30-2025 methylPREDNISo lone (Medrol Dospak) 4 MG tablets Indications: Tenosynovitis of right lower leg Follow schedule on MEDROL PACK package instructions to be used as directed 21 tablet 01/30/2025 Active Start: 01-12-2025 End: 03-27-2025 take 1 tablet by mouth once as needed Methylprednisolone (Medrol (Nciolas)) 4 mg tablets,dose pack Discontinued 0 PO per package directions as needed for pain January 12, 2025 1:00am March 27, 2025 8:17am orally per package directions PRN; PO PER PKG DIR Start: 05-09-2023 End: 01-30-2025 Medrol 4 mg Tab Refills(s) 0 Start Date: 05/09/23 Status: Ordered Repeat number: 1 Start: 11-05-2018 End: 07-24-2019 take 1 tablet by mouth once as needed Methylprednisolone (Medrol (Nicolas)) 4 mg tablets,dose pack Discontinued 1 dose pk PO per package directions as needed for UCTD July 19, 2019 10:35am July 24, 2019 3:25pm Medrol (Nicolas) 4 M G TABS USE DIRECTED. Quantity: 0 Refills: 0 Ordered: 30-Mar-2023 DO Active montelukast 10 mg oral tablet (20 sources) Leukotriene Receptor Antagonist Start: 04-25-2018 End: 05-27-2025 take 1 mg by mouth once daily montelukast 10 mg Tab mg tab(s), Oral, Daily, Refills(s) 0 Start Date: 05/09/23 Status: Ordered Repeat number: 1 nabumetone 750 mg oral tablet (20 sources) Nonsteroidal Anti-inflammatory Drug Start: 05-09-2023 End: 09-24-2024 nabumetone (Relafen) 750 MG tablet Take 750 mg by mouth 06/09/2024 Active Start: 04-25-2018 End: 10-17-2024 take 1 tablet by mouth twice daily Nabumetone 750 mg tablet Discontinued 750 MG PO Twice daily April 25, 2018 12:00am October 17, 2024 10:04am take 1 tablet by christopher th every twelve hours Nabumetone 750 MG Oral Tablet TAKE 1 TABLET EVERY 12 HOURS. Quantity: 0 Refills: 0 Ordered: 30-Mar-2023 DO Active naproxen 250 mg oral tablet (12 sources) Nonsteroidal Anti-inflammatory Drug Start: 02-16-2025 take 1 tablet by mouth twice daily as needed for pain Naproxen 250 mg tablet Active 250 MG PO Twice daily as needed for pain 7 3 February 16, 2025 12:00am Potassium Bicarb-Citric Acid (Klor-Con/Ef) 25 mEq tablet, effervescent (20 sources) Start: 04-02-2024 Potassium Bicarb-Citric Acid (Klor-Con/Ef) 25 mEq tablet, effervescent Active 25 MEQ PO Twice daily April 01, 2024 11:00pm Start: 04-02-2024 Potassium Bica rb-Citric Acid (Klor-Con/Ef) 25 mEq tablet, effervescent Active 25 MEQ PO Twice daily April 02, 2024 12:00am potassium bicarbonate 25 meq effervescent oral tablet (20 sources) Start: 12-14-2023 take 1 tablet by [...] as needed for iritis April 02, 2024 12:00am Start: 08-22-2023 prednisoLONE a cetate (PRED FORTE) 1 % ophthalmic suspension 08/22/2023 Active Start: 05-09-2023 prednisoLONE O ral, Daily, Refills(s) 0 Start Date: 05/09/23 Status: Ordered Repeat number: 1 Start: 05-09-2023 prednisoLONE O ral, Daily, Refills(s) 0 Start Date: 05/09/23 Status: Ordered Start: 11-05-2018 End: 07-24-2019 Prednisolone Acetate 1 % drops,suspension Discontinued 1 DROPS OPHTHALMIC As Directed as needed for Iritis November 05, 2018 1:00am July 24, 2019 3:25pm taper as directed/ Right Eye Start: 11-05-2018 End: 07-24-2019 Prednisolone Acetate Discont inued 1 DROPS OPHTHALMIC As Directed November 05, 2018 1:00am July 24, 2019 3:25pm taper as directed/ Right Eye take 2 drop(s) into the eye(s) four times daily as needed Pred Forte 1 % 2 drops into affected eye Ophthalmic Four times a day PRN Active prednisoLONE Joseph yañez P-F 1 % Ophthalmic Suspension as directed Quantity: 0 Refills: 0 Ordered: 30-Mar-2023 DO Active predniSONE 20 mg oral tablet (20 sources) Start: 09-24-2024 End: 12-19-2024 predniSONE (DELTASONE) 20 mg tablet prn 09/24/2024 Active primidone 50 mg oral tablet (20 sources) Anti-epilepti c Agent Start: 01-23-2025 End: 03-21-2025 take 2 tablets by mouth at bedtime primidone (Mysoline) 50 MG tablet Indications: Intention tremor Take 2 tablets (100 mg) by mouth at bedtime 60 tablet 11 01/23/2025 03/21/2025 Discontinued (Reorder) Start: 01-03-2025 End: 03-21-2026 primidone 50 mg Tab 50 mg = 1 tab(s), Refills(s) 0 Start Date: 06/12/25 Status: Ordered Repeat number: 1 Start: 12-19-2024 End: 01-18-2025 take 0.5 tablet by mouth at bedtime primidone (Mysoline) 50 MG tablet Indications: Intention tremor Take 0.5 tablets (25 mg) by mouth at bedtime 30 tablet 11 12/19/2024 01/03/2025 Discontinued (Reorder) Refresh Dry Eye Therapy (10 sources) Start: 05-09-2023 Refresh Dry Ey e Therapy Eye-Both, QID, Refill(s) 0 Start Date: 05/09/23 Status: Ordered Repeat number: 1 Start: 05-09-2023 Refresh Dry Ey e Therapy Eye-Both, QID, Refill(s) 0 Start Date: 05/09/23 Status: Ordered simvastatin 20 mg oral tablet (20 sources) HMG-CoA Reductase Inhibitor Start: 07-19-2019 End: 05-27-2025 take 1 mg by mouth once daily at bedtime simvastatin 20 mg Tab mg tab(s), Oral, Once a day (at bedtime), Refills(s) 0 Start Date: 05/09/23 Status: Ordered Repeat number: 1 Start: 04-25-2018 End: 07-19-2019 take 1 tablet by mouth once daily Simvastatin 10 mg tablet Discontinued 10 MG PO Daily April 25, 2018 12:00am July 19, 2019 10:31am tamsulosin hydrochloride 0.4 mg oral capsule (20 sources) alpha-Adrenergic Carlos Start: 04-15-2024 take 1 capsule by mouth once daily tamsulosin 0.4 mg Cap 0.4 mg = 1 cap(s), Oral, Daily, # 30 cap(s), Refills(s) 11, Pharmacy: [facility] [id number], 173, cm, 09/03/24 10:19:00 EDT, Height/Length Dosing, 98.6, kg, 09/03/24 10:19:00 EDT, Weight Dosing Start Date: 01/14/25 Status: Ordered Quantity: 30.0 Unit: cap(s) Repeat number: 12 Indications: Benign prostatic hyperplasia without lower urinary tract symptoms; Start: 01-03-2024 End: 02-02-2024 take 1 capsule by mouth twice daily Flomax 0.4 mg Cap 0.4 mg = 1 cap(s), Oral, BID, X 30 day(s), # 60 cap(s), Refills(s) 0, Pharmacy: [facility]/pharmacy #[id number], 173, cm, 09/19/23 9:41:00 EDT, Height/Length Dosing, 97.5, kg, 09/19/23 9:41:00 EDT, Weight Dosing Start Date: 01/03/24 Stop Date: 02/02/24 Status: Ordered Start: 05-09-2023 End: 06-08-2023 take 1 capsule by mouth twice daily Flomax 0.4 mg Cap 0.4 mg = 1 cap(s), Oral, BID, X 30 day(s), # 60 cap(s), Refills(s) 0, Pharmacy: [facility] [id number], 173, cm, 05/09/23 16:02:00 EDT, Height/Length Dosing, [...] Refills(s) 0 Start Date: 05/09/23 Status: Ordered Repeat number: 1 Start: 11-05-2018 End: 07-26-2019 take 2 tablets by mouth every eight hours as needed for pain Tramadol 50 mg tablet Active 100 MG PO Q8H as needed for Pain 0 July 26, 2019 7:13am Start: 11-05-2018 End: 07-26-2019 take 100 mg [...] 03-31-2023 Triamcinolone Acetonide (Nasal Allergy) 55 mcg Aerosol,[place] Active 1 SPRAY INTRANASAL Daily March 31, 2023 12:00am Start: 03-31-2018 Kenalog -40 mg March, 10 mg urea 400 mg/ml topical cream (12 sources) Start: 01-10-2025 End: 02-09-2025 urea (Carmol) 40 % cream Indications: Hyperkeratosis Apply 1 application topically in the morning and 1 application before bedtime. 85 g 1 01/10/2025 02/09/2025 Active Completed/Discontinued Medications Medication Drug Class(es) Dates Sig (Normalized) Sig (Original) acetaminophen 325 mg / HYDROcodone bitartrate 5 mg oral tablet (20 sources) Opioid Agonist Start: 04-09-2024 End: 01-12-2025 take 1 tablet by mouth every six hours as needed for pain Hydrocodone-Acetami nophen 5-325 mg tablet Discontinued 1 - 2 TAB PO Every 6 hours as needed for pain 30 April 10, 2024 January 12, 2025 12:57pm Start: 05-03-2023 End: 03-29-2024 take 1 tablet by mouth every six hours as needed for pain Hydrocodone-Acetaminophen 5-325 mg table t Discontinued 1 - 2 TAB PO Q6H as needed for pain 15 3 January 03, 2024 March 29, 2024 11:09am Start: 05-12-2019 End: 07-19-2019 take 1 tablet by mouth once daily at bedtime as needed for pain Hydrocodone-Acetaminophen ([place]) 5-325 mg tablet Discontinued 1 TAB PO Daily at bedtime as needed for pain 14 14 May 12, 2019 July 19, 2019 10:35am Start: 04-25-2018 End: 11-05-2018 take 1 tablet by mouth every four to six hours as needed for pain Hydrocodone-Acetaminophen ([place]) 5-325 mg tablet Discontinued 1 - 2 TAB PO EVERY 4-6 HOURS as needed for Pain May 16, 2018 November 05, 2018 1:25pm benzonatate 200 mg oral capsule (20 sources) Non-narcotic Antitussive Start: 09-19-2024 End: 03-21-2025 take 1 capsule by mouth three times daily as needed for cough Benzonatate 200 mg capsule Discontinued 200 MG PO Three times daily as needed for cough 10 September 19, 2024 12:00am January 12, 2025 12:57pm chlorhexidine gluconate 40 mg/ml medicated liquid soap (1 source) Hibiclens 4 % Externally Not-Taking/PRN ciprofloxacin 500 mg oral tablet (20 sources) Quinolone Antimicrobial Start: 04-29-2025 Cipro 500 mg Tab 500 mg = 1 tab(s), Oral, As Directed, Take one tab the day before the procedure. Then take the 2nd tab after the procedure has been completed., # 2 tab(s), Refills(s) 0, Pharmacy: [facility]/pharmacy #[id number], 173, cm, 04/29/25 9:39:00 EDT, Height/Length Dosing, 99, kg, 04/29/25 9:39:00 EDT, Weight Dosing Start Date: 04/29/25 Status: Ordered Quantity: 2.0 Unit: tab(s) Repeat number: 1 Start: 04-09-2024 End: 05-02-2024 take 1 tablet by mouth every two hours Ciprofloxacin Hcl (Cipro) 500 mg tablet Discontinued 500 MG PO Q12H April 09, 2024 12:00am May 02, 2024 9:53am administer dose at least 2 hrs before/6 hrs after dairy products, calcium, zinc, and/or iron-containing products codeine phosphate 2 mg/ml / guaiFENesin 20 mg/ml oral solution (5 sources) Opioid Agonist Start: 09-24-2024 End: 12-17-2024 take 10 mL by mouth three times daily as needed for cough codeine-guaiFENesin (guaiFENesin AC) 10-100 mg/5 mL liquid Indications: Upper respiratory tract infection, unspecified type Take 10 mL by mouth 3 (three) times a day as needed for cough. 120 mL 09/24/2024 12/17/2024 Discontinued (Therapy completed) cyclobenzaprine hydrochloride 10 mg oral tablet (20 sources) Muscle Relaxant Start: 05-12-2019 End: 07-26-2019 take 1 tablet by mouth three times daily as needed for pain Cyclobenzaprine 10 mg Tablet Discontinued 10 MG PO Three times daily as needed for Pain May 12, 2019 12:00am July 26, 2019 8:09am diazePAM 5 mg oral tablet (20 sources) Benzodiazepine Start: 07-26-2019 End: 03-31-2023 take 1 tablet by mouth four times daily as needed for muscle spasms Diazepam 5 mg Tablet Discontinued 5 MG PO Four times daily as needed for Muscle Spasm 30 July 26, 2019 12:00am March 31, 2023 8:41am doxycycline hyclate 100 mg oral tablet (20 sources) Tetracycline-class Drug Start: 05-16-2018 End: 11-05-2018 take 1 tablet by mouth twice daily Doxycycline Hyclate 100 mg tablet Discontinued 100 MG PO Twice daily 10 July 10, 2018 12:00am November 05, 2018 1:17pm Effervescent Potassium 25 mEq oral tablet (8 sources) Start: 09-11-2024 End: 09-06-2025 take 1 tablet by mouth twice daily Effervescent Potassium 25 mEq oral tablet 25 mEq = 1 tab(s), Oral, BID, X 90 day(s), # 180 tab(s), Refills(s) 3, Pharmacy: [facility]/pharmacy #[id number], 173, cm, 09/03/24 10:19:00 EDT, Height/Length Dosing, 98.6, kg, 09/03/24 10:19:00 EDT, Weight Dosing Start Date: 09/11/24 Stop Date: 09/06/25 Status: Ordered Quantity: 180.0 Unit: tab(s) Repeat number: 4 Start: 09-19-2023 End: 09-13-2024 take 1 tablet by mouth twice daily Effervescent Potassium 25 mEq oral tablet 25 mEq = 1 tab(s), Oral, BID, X 90 day(s), # 180 tab(s), Refills(s) 3, Pharmacy: [facility]/pharmacy #[id number], 173, cm, 09/19/23 9:41:00 EDT, [...] Activated Discontinued 1 SPRAY INTRANASAL Daily July 19, 2019 12:00am March 31, 2023 8:40am Left nostril only fluticasone prop ionate (FLONASE) 50 mcg/actuation nasal spray 1 spray in the morning. Active take 1 spray(s) nasal route once daily fluticasone (Flonase) 50 MCG/ACT nasal spray Administer 1 spray into each nostril Daily Shake gently. Before first use, prime pump. After use, clean tip and replace cap. Active 12 hr guaiFENesin 600 mg / pseudoephedrine hydrochloride 60 mg extended release oral tablet (20 sources) alpha-Adrenergic Agonist End: 03-21-2025 take 1 tablet by mouth every twelve hours pseudoephedrine-guaiFENesin ER (Mucinex D) 60-600 MG 12 hr tablet Take 1 tablet by mouth every 12 (twelve) hours 03/21/2025 Discontinued End: 02-25-2025 pseudoephedrine-guaiFENesin (MUCINEX D) 60-600 mg per 12 hr tablet 02/25/2025 Discontinued (Therapy completed) Hexachlorophene (1 source) Phisohex *please review for potential _update for e-prescription and drug interaction check* Not-Taking/PRN HYDROmorphone hydrochloride 4 mg oral tablet (20 sources) Opioid Agonist Start: 018 End: take 1 tablet by mouth every six hours as needed for pain Hydromorphone (Dilaudid) 4 mg tablet Discontinued 4 MG PO Q6H as needed for pain April 29, 2018 November 05, 2018 1:25pm ketorolac tromethamine 10 mg oral tablet (7 sources) Nonsteroidal Anti-inflammatory Drug, Cyclooxygenase Inhibitor Start: 023 take 1 tablet by mouth twice daily as needed for pain ketorolac 10 mg Tab 10 mg = 1 tab(s), Oral, BID, PRN for pain, Take one tab by mouth up to twice daily for pain., # 30 tab(s), Refills(s) 0, Pharmacy: [facility] [id number], 173, cm, 05/09/23 16:02:00 EDT, Height/Length Dosing, 97.5, kg, 05/09/23 16:02:00 EDT, Weight Dosing Start Date: 05/09/23 Status: Ordered levoFLOXacin 500 mg oral tablet (20 sources) Quinolone Antimicrobial Start: 024 End: take 1 tablet by mouth once daily Levofloxacin 500 mg tablet Discontinued 500 MG PO Daily 5 January 03, 2024 1:00am March 29, 2024 11:11am Methotrexate Sodium (Pf) 50 mg recon soln (7 sources) Start: 025 End: Methotrexate Sodium (Pf) 50 mg recon soln Discontinued 50 MG .Route .weekly February 15, 2025 12:00am February 16, 2025 3:00pm nitroglycerin 0.4 mg sublingual tablet (20 sources) Nitrate Vasodilator Start: 023 End: take 1 tablet under the tongue once daily as needed for pain Nitroglycerin 0.4 mg tablet, sublingual Discontinued 0.4 MG SUBLINGUAL Daily as needed for Chest Pain March 31, 2023 12:00am January 12, 2025 12:56pm Start: 03-30-2023 Nitroglycerin 0.4 MG Sublingual Tablet Sublingual PLACE 1 TABLET UNDER THE TONGUE EVERY 5 MINUTES FOR UP TO 3 DOSES NEEDED FOR CHEST PAIN.CALL 911 IF PAIN PERSISTS. Quantity: 1 Refills: 0 Ordered: 30-Mar-2023 Alfonso Trujillo DO Start : 30-Mar-2023 Active new start omeprazole 20 mg delayed release oral capsule (20 sources) Proton Pump Inhibitor Start: 02-25-2025 End: 04-16-2025 take 1 capsule by mouth in the morning omeprazole (PriLOSEC) 20 mg capsule Take 1 capsule (20 mg total) by mouth in the morning. 02/25/2025 04/16/2025 Discontinued (Dose adjustment) Start: 10-23-2022 take 1 mg by mouth once daily omeprazole 40 mg Cap-DR mg cap(s), Oral, Daily, Refills(s) 0 Start Date: 05/09/23 Status: Ordered Repeat number: 1 Start: 10-23-2022 End: 02-25-2025 omeprazole (PriLOSEC) [address] capsule 10/11/2024 Active Start: 04-25-2018 End: 02-16-2025 take 2 capsules by mouth once daily in the morning Omeprazole 20 mg capsule,delayed release(DR/EC) Discontinued 40 MG PO Every morning April 25, 2018 12:00am February 16, 2025 3:00pm Start: 04-25-2018 take 40 mg by mouth once daily in the morning Omeprazole Active 40 MG PO Every morning April 25, 2018 12:00am Start: 04-25-2018 take 20 mg by mouth twice baldomero y Omeprazole Active 20 MG PO Twice daily April 25, 2018 12:00am ondansetron 4 mg disintegrating oral tablet (20 sources) Serotonin-3 Receptor Antagonist Start: 05-03-2023 End: 03-29-2024 take 1 tablet by mouth every eight hours as needed for nausea and vomiting Ondansetron 4 mg tablet,disintegrating Discontinued 4 MG PO Q8H as needed for nausea and vomiting January 03, 2024 4:25am March 29, 2024 11:10am Start: 04-25-2018 End: 11-05-2018 Ondansetron (Zofran Odt) 4 m g Tablet,Disintegrating Discontinued 4 MG PO EVERY 8-12 HOURS as needed for Nausea And Vomiting April 25, 2018 12:00am November 05, 2018 [...] (1 source) take 1 capsule by mo [facility] every twenty-four hours Vitamin E 400 UNIT 1 capsule Orally Once a day for 30 day(s) Not-Taking/PRN Problems Active Problems Problem Classification Problem Date Documented Date Episodic/Chronic Abdominal hernia (1 source) Hiatal hernia; Translations: [Diaphragmatic hernia without obstruction or gangrene] Episodic Acquired foot deformities (3 sources) Pronation deformity of the foot; Translations: [Other acquired deformities of right foot] 12-28-2023 Episodic Asthma (2 sources) Moderate persistent asthma; Translations: [Moderate persistent asthma, uncomplicated] Onset: 05-28-2025 05-28-2025 Chronic Calculus of urinary tract (20 sources) Calculus of ureter; Translations: [Calculus of ureter] Onset: 04-25-2018 05-03-2023 Episodic Cancer; other and unspecified primary (20 sources) Malignant neoplasm of eye; Translations: [Malignant neoplasm of unspecified site of unspecified eye] Onset: 05-28-2024 Resolved: 06-14-2024 01-19-2024 Chronic Cardiac dysrhythmias (15 sources) Multiple premature ventricular complexes; Translations: [Ventricular premature depolarization] Onset: 02-15-2025 02-16-2025 Chronic Coagulation and hemorrhagic disorders (20 sources) Lupus anticoagulant disorder; Translations: [Primary hypercoagulable state] Onset: 09-29-2022 05-28-2024 Chronic Coronary atherosclerosis and other heart disease (1 source) Atherosclerotic heart disease of [place] coronary artery without angina pectoris; Translations: [ASHD [place] W/O ANGINA PECTORIS] Onset: 03-28-2023 Chronic Diseases of white blood cells (20 sources) Leukocytosis; Translations: [Elevated white blood cell count, unspecified] Onset: 05-28-2024 01-03-2024 Chronic Disorders of lipid metabolism (20 sources) Hyperlipidemia, unspecified; Translations: [Hyperlipidemia] Onset: 03-28-2023 01-19-2024 Chronic E Codes: Fall (1 source) Fall Onset: 01-29-2025 Esophageal disorders (1 source) Diffuse spasm of esophagus; Translations: [Dyskinesia of esophagus] Chronic Esophageal disorders (1 source) Esophagitis; Translations: [Esophagitis, unspecified] Episodic Essential hypertension (20 sources) Essential (primary) hypertension; Translations: [Hypertensive disorder] Onset: 04-26-2017 01-19-2024 Chronic Genitourinary symptoms and ill-defined conditions (1 source) Incontinence without sensory awareness; Translations: [Incontinence without sensory awareness] Onset: 03-19-2024 Chronic Genitourinary symptoms and ill-defined conditions (20 sources) Blood in urine; Translations: [Gross hematuria] Onset: 06-02-2023 Episodic Headache; including migraine (20 sources) Cluster headache; Translations: [Cluster headache syndrome, unspecified, not intractable] Onset: 09-29-2022 05-28-2024 Chronic Hyperplasia of prostate (20 sources) Benign prostatic hypertrophy without outflow obstruction; Translations: [Benign prostatic hyperplasia without lower urinary tract symptoms] Onset: 03-20-2024 Chronic Inflammation; infection of eye (except that caused by tuberculosis or sexually transmitteddisease) (20 sources) Iritis; Translations: [Unspecified iridocyclitis] Onset: 05-28-2024 01-19-2024 Episodic Mycoses (7 sources) Pain in toe; Translations: [Tinea unguium] 10-28-2024 Episodic Osteoarthritis (20 sources) Osteoarthritis; Translations: [Arthritis] Onset: 09-29-2022 01-18-2024 Chronic Osteoporosis (20 sources) Osteoporosis; Translations: [Age-related osteoporosis without current pathological fracture] Onset: 05-28-2024 01-19-2024 Chronic Other acquired deformities (7 sources) Contracture of joint of right ankle; Translations: [Contracture, right ankle] 01-30-2025 Chronic Other acquired deformities (20 sources) Spondylolisthesis, lumbar region; Translations: [Spondylolisthesis] 02-09-2024 Episodic Other acquired deformities (10 sources) Acquired unequal leg length; Translations: [Unequal limb length (acquired), unspecified site] 12-06-2024 Episodic Other aftercare (1 source) Other disposition clerk (current) drug therapy; Translations: [OTH AIRCRAFT ENGINE INSTALLER CURRENT DRUG THERAPY] Onset: 03-28-2023 Episodic Other aftercare (1 source) director of radio services (current) use of aspirin; Translations: [AIRCRAFT ENGINE INSTALLER CURRENT USE OF ASPIRIN] Onset: 03-28-2023 Episodic Other aftercare (1 source) High risk drug monitoring status; Translations: [detention (current) use of opiate analgesic] Episodic Other aftercare (2 sources) Post-discharge follow-up; Translations: [Encounter for follow-up examination after completed treatment for conditions other than malignant neoplasm] Onset: 06-11-2025 06-11-2025 Episodic Other aftercare (1 source) Encounter for follow-up examination after completed treatment for conditions other than malignant neoplasm; Translations: [Encounter for follow-up examination after completed treatment for conditions other than malignant neoplasm] Onset: 06-11-2025 Episodic Other bone disease and musculoskeletal deformities (6 sources) Bilateral exostosis of foot; Translations: [Other specified disorders of bone, ankle and foot] 10-28-2024 Episodic Other congenital anomalies (20 sources) Cleft palate with cleft lip; Translations: [Unspecified cleft palate with unilateral cleft lip] Onset: 09-29-2022 05-28-2024 Chronic Other congenital anomalies (20 sources) Cleft palate; Translations: [Cleft palate, unspecified] Onset: 09-29-2022 05-28-2024 Chronic Other connective tissue disease (2 sources) Pain of toes of bilateral feet; Translations: [Pain in right toe(s)] 08-17-2024 Episodic Other connective tissue disease (15 sources) Trochanteric bursitis; Translations: [Trochanteric bursitis, right hip] 11-09-2024 Episodic Other connective tissue disease (19 sources) Trochanteric bursitis, right hip; Translations: [Enthesopathy of hip region] Onset: 04-18-2025 11-09-2024 Episodic Other connective tissue disease (8 sources) Tenosynovitis; Translations: [Tenosynovitis of right lower leg] 01-30-2025 Episodic Other connective tissue disease (9 sources) Iliotibial band friction syndrome of right knee; Translations: [Iliotibial band syndrome, right leg] 02-08-2025 Episodic Other connective tissue disease (13 sources) Iliotibial band syndrome, right leg; Translations: [Other disorders of muscle, ligament, and fascia] Onset: 04-10-2025 02-08-2025 Episodic Other connective tissue disease (1 source) Pain of right lower leg; Translations: [Pain in right lower leg] 04-16-2025 Episodic Other diseases of bladder and urethra (2 sources) Detrusor overactivity; Translations: [Overactive bladder] Onset: 04-29-2025 Chronic Other diseases of bladder and urethra (2 sources) Overactive bladder 04-29-2025 Chronic Other diseases of kidney and ureters (1 source) Hydronephrosis with renal and ureteral calculous obstruction; Translations: [Hydronephrosis with renal and ureteral calculous obstruction] Onset: 04-25-2018 Episodic Other diseases of kidney and ureters (3 sources) Urinary tract obstruction; Translations: [Hydronephrosis with renal and ureteral calculous obstruction] Onset: 06-02-2023 Episodic Other diseases of veins and lymphatics (3 sources) Lymphedema; Translations: [Lymphedema, not elsewhere classified] 04-10-2025 Chronic Other diseases of veins and lymphatics (3 sources) Lymphedema of bilateral lower limbs; Translations: [Lymphedema, not elsewhere classified] 04-10-2025 Chronic Other diseases of veins and lymphatics (3 sources) Lymphedema, not elsewhere classified; Translations: [Other lymphedema] 04-10-2025 Chronic Other ear and sense organ disorders (20 sources) Decreased hearing ; Translations: [Unspecified hearing loss, bilateral] Onset: 05-28-2024 05-28-2024 Chronic Other ear and sense organ disorders (20 sources) Hearing loss; Translations: [Unspecified hearing loss, unspecified ear] Onset: 09-29-2022 05-28-2024 Chronic Other hereditary and degenerative nervous system conditions (20 sources) Intention tremor; Translations: [Other specified forms of tremor] Onset: 10-15-2024 10-15-2024 Chronic Other hereditary and degenerative nervous system conditions (1 source) Other specified forms of tremor; Translations: [Other specified forms of tremor] Onset: 12-17-2024 Chronic Other inflammatory condition of skin (5 sources) Lupus erythematosus 01-19-2024 Chronic Other injuries and conditions due to external causes (4 sources) Injury of right lower leg; Translations: [Other injury of other muscle(s) and tendon(s) at lower leg level, right leg, initial encounter] 01-30-2025 Episodic Other injuries and conditions due to external causes (3 sources) Other injury of other muscle(s) and tendon(s) at lower leg level, right leg, initial encounter; Translations: [Sprains and strains of unspecified site of knee and leg] 02-14-2025 Episodic Other lower respiratory disease (1 source) Other forms of dyspnea; Translations: [OTHER FORMS OF DYSPNEA] Onset: 03-28-2023 Episodic Other lower respiratory disease (3 sources) Dyspnea on exertion; Translations: [Shortness of breath] Episodic Other lower respiratory disease (6 sources) Shortness of breath; Translations: [Shortness of breath] Onset: 05-01-2025 09-19-2024 Episodic Other nervous system disorders (20 [...] limb; Translations: [Lesion of ulnar nerve] Onset: 05-28-2024 Chronic Other nervous system disorders (20 sources) Compression neuropathy of upper limb; Translations: [Lesion of ulnar nerve, right upper limb] Onset: 05-28-2024 02-09-2024 Chronic Other nervous system disorders (20 sources) Other chronic pain; Translations: [Other chronic pain] 04-11-2024 Chronic Other nervous system disorders (20 sources) Carpal tunnel syndrome; Translations: [Carpal tunnel syndrome, unspecified upper limb] Onset: 08-02-2018 05-28-2024 Chronic Other nervous system disorders (20 sources) Luo's metatarsalgia; Translations: [Lesion of plantar nerve, unspecified lower limb] Onset: 09-29-2022 05-28-2024 Chronic Other nervous system disorders (4 sources) Right-sided piriformis syndrome; Translations: [Lesion of sciatic nerve, right lower limb] 12-20-2024 Chronic Other nervous system disorders (2 sources) Polyneuropathy; Translations: [Polyneuropathy, unspecified] 05-15-2025 Chronic Other nervous system disorders (8 sources) Tremor, unspecified; Translations: [Abnormal involuntary movements] 07-12-2024 Episodic Other non-traumatic joint disorders (1 source) Pain in right knee; Translations: [Pain in joint, lower leg] 12-28-2023 Episodic Other non-traumatic joint disorders (15 sources) Instability of right hip joint; Translations: [Other instability, right hip] 10-17-2024 Episodic Other non-traumatic joint disorders (12 sources) Effusion of right knee joint; Translations: [Effusion, right knee] 01-12-2025 Episodic Other nutritional; endocrine; and metabolic disorders [...] Chronic Other nutritional; endocrine; and metabolic disorders (20 sources) Obesity caused by energy imbalance; Translations: [Class 1 obesity due to excess calories with serious comorbidity and body mass index (BMI) of 33.0 to 33.9 in adult] Onset: 04-15-2023 05-28-2024 Chronic Other nutritional; endocrine; and metabolic disorders (3 sources) Severe obesity; Translations: [Class 2 severe obesity due to excess calories with serious comorbidity and body mass index (BMI) of 35.0 to 35.9 in adult ([facility])] Onset: 04-15-2023 05-28-2025 Chronic Other nutritional; endocrine; and metabolic disorders (1 source) Other obesity due to excess calories; Translations: [Other obesity due to excess calories] Onset: 12-14-2023 Chronic Other skin disorders (3 sources) Fissure in skin; Translations: [Changes in skin texture] 01-10-2025 Episodic Other skin disorders (7 sources) Asteatosis cutis; Translations: [Xerosis cutis] 01-30-2025 Episodic Other upper respiratory disease (20 sources) Allergic rhinitis; Translations: [Allergic rhinitis, unspecified] Onset: 07-28-2017 05-28-2024 Chronic Residual codes; unclassified (1 source) Postprocedural state finding; Translations: [Other specified postprocedural states] Episodic Residual codes; unclassified (1 source) Other specified postprocedural states Episodic Residual codes; unclassified (13 sources) History of operative procedure on lumbar spinal structure; Translations: [Other specified postprocedural states] 01-12-2025 Episodic Rheumatoid arthritis and related disease (20 sources) Rheumatoid arthritis; Translations: [Rheumatoid arthritis] Onset: 05-28-2024 01-19-2024 Chronic Screening and history of mental health and substance abuse codes (6 sources) Personal history of nicotine dependence; Translations: [Ex-smoker] Onset: 03-28-2023 05-01-2024 Episodic Comment on above: quit in the ; Spondylosis; intervertebral disc disorders; other back problems (20 sources) Degeneration of cervical intervertebral disc; Translations: [Other cervical disc degeneration, unspecified cervical region] Onset: 05-28-2024 01-19-2024 Chronic Syncope (3 sources) Syncope; Translations: [Syncope and collapse] Onset: 06-11-2025 06-11-2025 Episodic Systemic lupus erythematosus and connective tissue disorders (20 sources) Systemic lupus erythematosus, unspecified; Translations: [Autoimmune connective tissue disorder] Onset: 09-29-2022 05-28-2024 Chronic Thyroid disorders (3 sources) Thyroid nodule; Translations: [Nontoxic single thyroid nodule] Onset: 05-30-2024 12-17-2024 Chronic Unclassified (1 source) Unknown / UNK(Unknown) Onset: 04-25-2018 Unclassified (1 source) Low back pain, unspecified; Translations: [Low back pain, unspecified] Onset: 01-23-2024 Unclassified (5 sources) Patient encounter status 03-20-2024 Unclassified (7 sources) A [facility] screening has identified you as FRAIL or [...] Four Ways to Beat the Frailty Risk [email or web address] -[email or web address]-[email or web address] ilty-[email or web address] 02-16-2025 Unclassified (1 source) Cough, unspecified; Translations: [Cough, unspecified] Onset: 09-19-2024 Unclassified (1 source) tcm Onset: 02-25-2025 Unclassified (1 source) Obesity, class 1; Translations: [Obesity, class 1] Onset: 01-24-2024 Past or Other Problems Problem Classification Problem Date Documented Da te Episodic/Chronic Acute and unspecified renal failure (20 sources) Injury of kidney; Translations: [Acute kidney failure, unspecified] Onset: 4 05-03-2023 Episodic Cancer; other and unspecified primary (20 sources) Squamous cell carcinoma of cornea; Translations: [Malignant neoplasm of unspecified cornea] Onset: 4 Resolved: 3 04-15-2023 Chronic Conditions associated with dizziness or vertigo (1 source) Dizziness Onset: 5 Episodic E Codes: Fall (20 sources) Fall from chair, initial encounter; Translations: [Fall] Onset: 2 01-12-2025 Episodic Headache; including migraine (1 source) Headache Onset: 5 Episodic Mood disorders (20 sources) Mood disorders Onset: 4 Resolved: 5 09-24-2024 Neoplasms of unspecified nature or uncertain behavior (20 sources) Conjunctival intraepithelial neoplasia; Translations: [Neoplasm of unspecified behavior of other specified sites] Onset: 5 05-28-2024 Episodic Nonspecific chest pain (20 sources) Other chest pain; Translations: [Chest pain] Onset: 3 Episodic Other acquired deformities (20 sources) Lumbar spondylolisthesis; Translations: [Spondylolisthesis, lumbar region] Onset: 4 07-25-2019 Episodic Other bone disease and musculoskeletal deformities (8 sources) Somatic dysfunction of thoracic region; Translations: [Segmental and somatic dysfunction of thoracic region] Onset: 5 02-25-2025 Episodic Other bone disease and musculoskeletal deformities (1 source) Segmental and somatic dysfunction of thoracic region; Translations: [Segmental and somatic dysfunction of thoracic region] Onset: 5 Episodic Other connective tissue disease (20 sources) Right rotator cuff syndrome; Translations: [Unspecified rotator cuff tear or rupture of right shoulder, not specified as traumatic] Onset: 9 05-28-2024 Episodic Other connective tissue disease (2 sources) Other symptoms and signs involving the musculoskeletal system; Translations: [Other musculoskeletal symptoms referable to limbs] Onset: 5 01-29-2025 Episodic Other diseases of kidney and ureters (20 sources) Hydronephrosis; Translations: [Unspecified hydronephrosis] Onset: 4 05-09-2023 Episodic Other gastrointestinal disorders (20 sources) Dysphagia; Translations: [Dysphagia, unspecified] Onset: 4 04-26-2018 Episodic Other injuries and conditions due to external causes (1 source) Other specified injuries of head, initial encounter; Translations: [OTH SPEC INJURIES HEAD INITIAL ENC] Onset: 2 Episodic Other lower respiratory disease (20 sources) Dyspnea; Translations: [Shortness of breath] Onset: 4 09-19-2024 Episodic Other lower respiratory disease (20 sources) Cough; Translations: [Cough] Onset: 4 09-19-2024 Episodic Other nervous system disorders (20 sources) Finding of hand region; Translations: [Tremor, unspecified] Onset: 4 07-12-2024 Episodic Other nervous system disorders (1 source) Paresthesia; Translations: [Paresthesia of skin] 12-14-2023 Episodic Other non-traumatic joint disorders (20 sources) Hip pain; Translations: [Pain in right hip] Onset: 4 08-27-2024 Episodic Other non-traumatic joint disorders (1 source) Effusion, right knee; Translations: [Effusion, right knee] Onset: 5 Episodic Other non-traumatic joint disorders (1 source) Other instability, right hip; Translations: [Other instability, right hip] Onset: 4 Episodic Other non-traumatic joint disorders (1 source) Pain in right hip; Translations: [Pain in right hip] Onset: 4 Episodic Other nutritional; endocrine; and metabolic disorders (20 sources) Body mass index 25-29 - overweight; Translations: [Overweight] Onset: 7 Resolved: 3 04-15-2023 Episodic Other screening for suspected conditions (not mental disorders or infectious disease) (20 sources) Abnormal electrocardiogram [ECG] [EKG]; Translations: [Encounter for screening for malignant neoplasm of prostate] Onset: 3 Episodic Other skin disorders (20 sources) Actinic keratosis; Translations: [Actinic keratosis] Onset: 7 05-28-2024 Episodic Other upper respiratory disease (1 source) Hoarse; Translations: [Dysphonia] 10-09-2024 Episodic Other upper respiratory infections (2 sources) Upper respiratory infection; Translations: [Acute upper respiratory infection, unspecified] 09-24-2024 Episodic Otitis media and related conditions (2 sources) Perforation of right tympanic membrane; Translations: [Unspecified perforation of tympanic membrane, right ear] Onset: 5 01-29-2025 Episodic Skin and subcutaneous tissue infections (2 sources) Cellulitis of right lower limb; Translations: [Cellulitis of right lower limb] Onset: 5 01-25-2025 Episodic Spondylosis; intervertebral disc disorders; other back problems (20 sources) Lumbar radiculopathy; Translations: [Radiculopathy, lumbar region] Onset: 2 05-12-2019 Episodic Sprains and strains (20 sources) Sprain of joints and ligaments of unspecified parts of neck, initial encounter; Translations: [Glenoid labrum tear] Onset: 9 05-28-2024 Episodic Superficial injury; contusion (5 sources) Contusion of right upper arm, initial encounter; Translations: [Abrasion, right lower leg, subsequent encounter] Onset: 2 01-25-2025 Episodic Thyroid disorders (20 sources) Mass of thyroid gland; Translations: [Other specified disorders of thyroid] Onset: 4 03-29-2024 Episodic Unclassified (1 source) Lumbar pain M54.50 Unclassified (2 sources) Onset: 5 05-28-2025 Results Test Name Value Interpretation Reference Range Facility Ambulatory Visit Summaryon 0 06-12-2025 Ambulatory Visit Summary Ambulatory Visit Summary VALENTIN TORRE :1955 Visit Date:06/12/2025 Ambulatory Visit Instructions Your Diagnosis BPH with obstruction/lower urinary tract symptoms Incomplete bladder emptying OAB (overactive bladder) Kidney stone Your Care Team Attending Physician - FLAVIO ONEAL, Zac De Oliveira Primary Care Physician - SASCHA SUTTON DO This Is Your Medications List dutasteride (dutasteride 0.5 mg Cap) potassium bicarbonate (Effervescent Potassium 25 mEq oral tablet) tamsulosin (tamsulosin 0.4 mg Cap) Contact prescribing physician if questions or concerns acetaminophen (acetaminophen 500 mg Tab) aspirin (aspirin 81 mg oral capsule) budesonide-formoterol (budesonide-formoterol 80 mcg-4.5 mcg/inh Inh Aer w/adapter) fexofenadine-pseudoephedrin e (Seema D OTC 24HR) folic acid (folic acid 1 mg Tab) gabapentin (gabapentin 100 mg Cap) hydrochlorothiazide-lisinop ril (hydrochlorothiazide-lisino pril 12.5 mg-20 mg Tab) hydrochlorothiazide-lisinop ril (hydrochlorothiazide-lisino pril 12.5 mg-20 mg Tab) hydroxychloroquine (hydroxychloroquine 200 mg Tab) leflunomide (leflunomide 10 mg oral tablet) meloxicam (meloxicam 15 mg Tab) methotrexate (methotrexate 1 g injection) methylPREDNISolone (Medrol 4 mg Tab) montelukast (montelukast 10 mg Tab) ocular lubricant ([facility] [employer] [facility]) omeprazole (omeprazole 40 mg Cap-DR) prednisoLONE primidone (primidone 50 mg Tab) simvastatin (simvastatin 20 mg Tab) tramadol (traMADOL 50 mg Tab) [Image Removed: STOP]Stop taking these medications ciprofloxacin (Cipro 500 mg Tab) Procedures Performed Cystoscopy (06/12/2025), Back (03/13/2025), Arm, Arthroplasty of knee, Arthroscopy of knee, Carpal tunnel release, Cleft palate, Colonoscopy, EGD - Esophagogastroduodenoscopy, Procedure on shoulder, Procedure on spine, Radio-frequency ablation system, Skin cancer, Tympanoplasty. Discharge Vitals Temperature (Temporal Artery) 37 ???C Heart Rate (Peripheral) 80 Respiratory Rate 16 Blood Pressure 119/77 Height 173 cm Height 68 in Weight 99 kg Weight 218.257 lb BMI 33.08 What to do next Scheduled Follow-Up Appointments Tuesday 8:45 AM EDT With: Where: [facility] [address] [address]- Tuesday 8:00 AM EDT With: FLAVIO ONEAL, Zac De Oliveira [facility] [address] [place] [address]- You Need to Schedule the Following Appointments Follow Up with FLAVIO ONEAL, EMILIA Richey When: Where: [facility] [address], [place] [address] [phone] Medications What How Much When Why Instructions Unchanged dutasteride (dutasteride 0.5 mg Cap) 1 Capsules By Mouth Every day Duration: 30 Days Unchanged potassium bicarbonate (Effervescent Potassium 25 mEq [...] prescribing physician if questions or concerns Unchanged budesonide-formoterol (budesonide-formoterol 80 mcg-4.5 mcg/ inh Inh Aer w/ adapter) 2 Inhalation Contact prescribing physician if questions or concerns Unchanged fexofenadine-pseudoephedrin e (Seema D OTC 24HR) By Mouth Every day Contact prescribing physician if questions or concerns Unchanged folic acid (folic acid 1 mg Tab) By Mouth Every day Contact prescribing physician if questions or concerns Unchanged gabapentin (gabapentin 100 mg Cap) 1 Capsules Contact prescribing physician if questions or concerns Unchanged hydrochlorothiazide-lisinop ril (hydrochlorothiazide-lisino pril 12.5 mg-20 mg Tab) Contact prescribing physician if questions or concerns Unchanged hydrochlorothiazide-lisinop ril (hydrochlorothiazide-lisino pril 12.5 mg-20 mg Tab) 1 Tablets Contact prescribing physician if questions or concerns [...] prescribing physician if questions or concerns Unchanged oc (more content not included)... Normal [facility] Urology Office/Clinic Noteon 06-12-2025 Urology Office/Clinic Note Urology Office/Clinic Note Chief Complaint cystoscopy HPI Staff Cysto ABX TAKEN History of Present Illness Tests reviewed: none I have reviewed the previous health record [...] Physical Exam Vitals & Measurements T: 37 ???C(Temporal Artery) HR: 80(Peripheral) RR: 16 BP: 119/77 HT: 68 in HT: 173 cm WT: 218.257 lb WT: 99 kg BMI: 33.08 General Appearance: alert, no distress, well nourished, well developed male. Procedure Operative Information Anesthesia Type: Local Procedure: Local Cystoscopy Complications: None Surgical risks, benefits, details of the procedure have been explained to the patient. Full informed consent has been obtained. Intraoperative Information Prepped: Patient is brought back to the endoscopy suite. Patient is placed in supine position. Patient prepped in the usual fashion with Betadine solution. 2% Xylocaine Jelly is placed per Urethra. After waiting several minutes, the Cystoscope is introduced. The Urethra is: Normal The Prostatic Urethra is: Trilobar obstruction, diffuse prostatic calcifications. The Bladder: No tumors. , Trabeculated: Severe (3), open diverticuli The Ureteral orifices: Show efflux of clear urine Specimens Removed: None Removal: Cystoscope is removed. The patient tolerated it well. Postoperative Information Patient is discharged home with antibiotic coverage. Follow up arranged. Assessment/Plan 1. BPH with obstruction/lower urinary tract symptoms (N40.1: Benign prostatic hyperplasia with lower urinary tract symptoms) PSA (monitored by PCP): 04/08/23 - 1.77 [1] PVR 04/29/25 - 108 cc. IPSS (16) - not filled out today d/t cysto. Taking Flomax 0.4 mg qd. Started Dutasteride 0.5 mg qd at prior OV. Pt had IO cysto wo complications today. Prophy abx taken prior. Found to have trilobar obstruction and diffuse prostatic calcifications. Recommended TURP. Risks/benefits discussed. Pt wishes to proceed. -Cont PSA monitoring with PCP -Cont Flomax and Dutasteride wo changes. Pt to call for refills. -Will schedule TURP. The procedural risks, benefits, details, and treatment alternatives have been discussed with the patient. These include bleeding, infection, need for blood transfusion, continued urinary difficulties, urinary leakage which could be permanent, need for catheter, retrograde ejaculation, scar tissue formation in the urinary channel or area of prostate shaving, erection problems, blood clot formation in the lower extremities which could travel to the lungs, among others. A secondary operation could also be required. Full informed consent has been obtained. Will order General anesthesia. 2. Incomplete bladder emptying (R33.9: Retention of urine, unspecified) See #1. 3. OAB (overactive bladder) (N32.81: Overactive bladder) Wears a pad daily for UUI. See #1. 4. Kidney stone (N20.0: Calculus of kidney) Electrolyte panel 10/20/23 - wnl. KUB 01/11/24 [facility] [place] - Kidneys are partially obscured, R>L. [...] mm RUP stone. No L renal stones. KUB 04/22/25 [facility] - Stable 3 mm stone RUP. No L sided stones. Taking Potassium Bicarb 25 mEq bid. [2] Follow-up With When Contact Information FLAVIO ONEAL, Zac De Oliveira, URL [facility] [address], [place] [address]- [phone] Additional Instructions: sched TURP Patient Education Transurethral Resection of the Prostate, Care After Transurethral Resection of the Prostate I, Adela Frias, personally scribed for Dr. Muniz on 06/12/2025 07:52:54. . Documentation recorded by the scribe, Teena Stanley, accurately reflects the services(s) I performed and decisions made by me. Authenticated by Dr. Muniz on 06/12/2025 07:55:57. Problem List/Past Medical History Ongoing Arthritis BPH with obstruction/lower urinary tract symptoms DDD (degenerative disc disease), lumbar Eye cancer Hyperlipidemia Hypertension Incomplete bladder emptying Iritis Kidney stone Lupus OAB (overactive bladder) Osteoarthri (more content not included)... Normal [facility] Comment on above: Result Comment: Elec tronically Signed By: Zac MUNIZ MD\.br\Date and Time Signed: 06/12/25 07:56 EDT\.br\Electronically Co-Signed By: Adela Frias\.br\Date and Time Co-Signed: 06/12/25 07:53 EDT Ambulatory Visit Summaryon 0 04-29-2025 Ambulatory Visit Summary Ambulatory Visit Summary NICHOGREYSON ROSEBISI De Oliveira :1955 Visit Date:04/29/2025 Ambulatory Visit Instructions Your Diagnosis Kidney stone BPH with obstruction/lower urinary tract symptoms OAB (overactive bladder) Your Care Team Attending Physician - Zac MUNIZ MD Primary Care Physician - SASCHA SUTTON DO This Is Your Medications List ciprofloxacin (Cipro 500 mg Tab) dutasteride (dutasteride 0.5 mg Cap) potassium bicarbonate (Effervescent Potassium 25 mEq oral [...] tramadol (traMADOL 50 mg Tab) Procedures Performed Back (03/13/2025), Arm, Arthroplasty of knee, Arthroscopy of knee, Carpal tunnel release, Cleft palate, Colonoscopy, EGD - Esophagogastroduodenoscopy, Procedure on shoulder, Procedure on spine, Radio-frequency ablation system, Skin cancer, Tympanoplasty. Discharge Vitals Temperature (Temporal Artery) 36.5 ???C Heart Rate (Peripheral) 82 Respiratory Rate 16 Blood Pressure 138/80 Height 173 cm Height 68 in Weight 99 kg Weight 218.257 lb BMI 33.08 What to do next You Need to Schedule the Following Appointments Follow Up with FLAVIO ONEAL, EMILIA Richey When: Where: [facility] [address] , [place] [address]- Medications What How Much When Why Instructions New ciprofloxacin (Cipro 500 mg Tab) 1 Tablets By Mouth As Directed Take one tab the day before the procedure. Then take the 2nd tab after the procedure has been completed. Pickup at [facility]/pharmacy #[id number] New dutasteride (dutasteride 0.5 mg Cap) 1 Capsules By Mouth Every day Duration: 30 Days Refills: 11 Pickup at [facility]/pharmacy #[id number] Unchanged potassium bicarbonate (Effervescent Potassium 25 mEq [...] Contact prescribing physician if questions or concerns Pharmacy Information [id number]: [address] [place], [place] [phone] Allergies cephalexin (Unknown) oxyCODONE (Hallucinations) sulfa drugs (Unknown) Problems Ongoing - Any problem that you are currently receiving treatment for. 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 Normal [facility] Urology Office/Clinic Noteon 04-29-2025 Urology Office/Clinic Note Urology Office/Clinic Note Chief Complaint 6 month follow up HPI Staff 6 month f/u with KUB done 04/22/25 [facility]. S/P right ESWL 10/25/24 Dx: kidney stones and BPH Potassium bicarb 25mEq BID and Flomax qd IPSS: 16 (doesn't know about the incomplete bladder emptying), KAYKAY: N/A Denies visible blood, denies abdominal/flank pain, denies dysuria PVR: 108 ml History of Present Illness Tests reviewed: UA, KUB I have reviewed the previous [...] HPI. Physical Exam Vitals & Measurements T: 36.5 ???C(Temporal Artery) HR: 82(Peripheral) RR: 16 BP: 138/80 HT: 68 in HT: 173 cm WT: 218.257 lb WT: 99 kg BMI: 33.08 General Appearance: alert, no distress, well nourished, well developed male. Assessment/Plan 1. Kidney stone (N20.0: Calculus of kidney) Electrolyte panel 10/20/23 - wnl. KUB 01/11/24 [facility] [place] - Kidneys are partially obscured, R>L. [...] mm RUP stone. No L renal stones. KUB 04/22/25 [facility] - Stable 3 mm stone RUP. No L sided stones. Taking Potassium Bicarb 25 mEq bid. Reviewed imaging with pt. 2. BPH with obstruction/lower urinary tract symptoms (N40.1: Benign prostatic hyperplasia with lower urinary tract symptoms) PSA (monitored by PCP): 04/08/23 - 1.77 UA neg. IPSS 16. Taking Flomax 0.4 mg qd. No prior prostate procedures. Reports Dr Sutton monitors PSA for his annual wellness. Has appt either this month or next. Stressed the importance of ensuring this is ordered and checked by PCP. Offered to start other prostate med that will gradually shrink the prostate and help with urination.Disucssed cysto to eval prostate obstruction and bladder health. Pt agrees to proceed with med and cysto. -Cont PSA monitoring with PCP -Start Dutasteride 0.5 mg qd. SEs discussed. Sent to [facility]. -Will schedule cysto. The risks and benefits for cystoscopy have been discussed. The risks include bleeding, infection, and irritation of the bladder and urinary channel, among others. The patient, after being informed of procedural details and after questions have been answered, wishes to proceed. Full informed consent has been obtained. Will order Local anesthesia. Prophylactic abx sent to [facility]. 3. OAB (overactive bladder) (N32.81: Overactive bladder) PVR 108 cc. Wears a pad daily for UUI. See #2. -Cysto above Follow-up With When Contact Information FLAVIO ONEAL, Zac De Oliveira, URL [facility] [address], [place] [address]- Additional Instructions: sched cysto Patient Education Cystoscopy I, Teena Stanley, personally scribed for Dr. Muniz on 04/29/2025 10:02:33. . Documentation recorded by the scribe, Teena Stanley, accurately reflects the services(s) I performed and decisions made by me. Authenticated by Dr. Muniz on 04/29/2025 10:04:48. Problem List/Past Medical History Ongoing Arthritis BPH with obstruction/lower urinary tract symptoms DDD (degenerative disc disease), lumbar Eye cancer Hyperlipidemia Hypertension Iritis Kidney stone Lupus OAB (overactive bladder) Osteoarthritis Osteoporosis Prostate cancer screening Rheumatoid arthritis Historical No qualifying data Procedure/Surgical History Back (03/13/2025), Arm, Arthroplasty of knee, Arthroscopy of knee, [...] Daily omeprazole 40 mg Cap-DR, Oral, Daily prednisoLONE (more content not included)... Normal [facility] Comment on above: Result Comment: Elec tronically Signed By: Zac MUNIZ MD\.br\Date and Time Signed: 04/29/25 10:04 EDT\.br\Electronically Co-Signed By: Teena Stanley P\.br\Date and Time Co-Signed: 04/29/25 10:03 EDT Alanine aminotransferase [En zymatic activity/volume] in Serum or PlasmaOrdered By: Christine Sanchez on 04-18-2025 ALT [Catalytic activity/Vol] Alanine aminotransferase [Enzymatic activity/volume] in Serum or Plasma 7-52 [facility] Albumin [Mass/volume] in Ser um or Plasma by Bromocresol green (BCG) dye binding methoOrdered By: Christine Sanchez on 04-18-2025 Albumin BCG dye [Mass/Vol] Albumin [Mass/volume] in Serum or Plasma by Bromocresol green (BCG) dye binding metho 3.5-5.7 [facility] Alkaline phosphatase [Enzyma tic activity/volume] in Serum or PlasmaOrdered By: Christine Sanchez on 04-18-2025 ALP [Catalytic activity/Vol] Alkaline phosphatase [Enzymatic activity/volume] in Serum or Plasma 34-104 [facility] Appearance of UrineOrdered B y: Christine Sanchez on 04-18-2025 Appearance (U) Urine appearance [facility] Aspartate aminotransferase [ Enzymatic activity/volume] in Serum or PlasmaOrdered By: Christine Sanchez on 04-18-2025 AST [Catalytic activity/Vol] Aspartate aminotransferase [Enzymatic activity/volume] in Serum or Plasma 13-39 [facility] Bacteria [Presence] in Urine by AutomatedOrdered By: Christine Sanchez on 04-18-2025 Bacteria Auto Ql (U) Bacteria [Presence] in Urine by Automated None Seen [facility] Basophils Auto (Bld) [#/Vol] Ordered By: Christine Sanchez on 04-18-2025 Basophils (Bld) [#/Vol] Automated basophil count [facility] Basophils/100 WBC Auto (Bld) Ordered By: Christine Sanchez on 04-18-2025 Basophils/100 WBC (Bld) Automated basophil % [facility] Basophils/100 WBC Manual cnt (Bld)Ordered By: Christine Sanchez on 04-18-2025 Basophils/100 WBC (Bld) Basophils/100 leukocytes in Blood by Manual count 0-2 [facility] Bilirubin Test strip Ql (U)O rdered By: Christine Sanchez on 04-18-2025 Bilirubin Ql (U) Bilirubin.total [Pre sence] in Urine by Test strip Negative [facility] Bilirubin.total [Mass/volume ] in Serum or PlasmaOrdered By: Christine Sanchez on 04-18-2025 Bilirubin [Mass/Vol] Bilirubin.total [Mass/volume] in Serum or Plasma 0.3-1.0 [facility] Calcium [Mass/volume] in Ser um or PlasmaOrdered By: Christine Sanchez on 04-18-2025 Calcium [Mass/Vol] Calcium [Mass/volume ] in Serum or Plasma 8.6-10.3 [facility] Carbon dioxide, total [Moles /volume] in Serum or PlasmaOrdered By: Christine Sanchez on 04-18-2025 CO2 [Moles/Vol] Carbon dioxide, tota l [Moles/volume] in Serum or Plasma 21.0-31.0 [facility] Chloride [Moles/volume] in S ace or PlasmaOrdered By: Christine Sanchez on 04-18-2025 Chloride [Moles/Vol] Chloride [Moles/vol ume] in Serum or Plasma 98-107 [facility] Color Auto (U)Ordered By: Mraianna Arellano on 04-18-2025 Color (U) Color of Urine by Auto Yellow [facility] Complement C3on 04-18-2025 Complement C3 121 mg/dL Normal 82-167 [facility] Comment on above: Result Comment: Perf ormed at: - [facility] [address] [id number] Mobile Lounge Driver Or Operator: Richy Ardon PhD, Phone: [phone] Performed By: #### E SR, DIFF CBC, ADDONUAPLUS, CMP #### [address] #### CH50, C4, C3 #### [facility] , Complement C4on 04-18-2025 Complement C4 14 mg/dL Normal 12-38 [facility] Comment on above: Result Comment: PERF ORMED BY: [place] [address] PATHOLOGIST CREASING MACHINE OPERATOR LANIE ALVARES M.D. Performed By: #### E SR, DIFF CBC, ADDONUAPLUS, CMP #### [address] #### CH50, C4, C3 #### [facility] , Complement Total (CH50)on Complement Total (CH50) 58 Normal >41 [facility] Comment on above: Result Comment: [...] out of range values. Performed at: - [facility] [id number] Mobile Lounge Driver Or Operator: Richy Ardon PhD, Phone: [phone] PERFORMED BY: [place] [address] PATHOLOGIST CREASING MACHINE OPERATOR LANIE ALVARES M.D. Performed By: #### E SR, DIFF CBC, ADDONUAPLUS, CMP #### [address] #### CH50, C4, C3 #### [facility] , Comprehensive Metabolic Pane vivek 04-18-2025 Albumin [Mass/Vol] 4.1 g/dL Normal 3.5-5.7 [facility] Comment on above: Performed By: #### E SR, DIFF CBC, ADDONUAPLUS, CMP #### [address] #### CH50, C4, C3 #### [facility] , Albumin/Globulin [Mass ratio] 2.1 {ratio} Normal [facility] Comment on above: Performed By: #### E SR, DIFF CBC, ADDONUAPLUS, CMP #### [address] #### CH50, C4, C3 #### [facility] , ALP [Catalytic activity/Vol] 73 U/L Normal 34-104 [facility] Comment on above: Result Comment: PERF ORMED BY: [place] [address] PATHOLOGIST CREASING MACHINE OPERATOR LANIE ALVARES M.D. Performed By: #### E SR, DIFF CBC, ADDONUAPLUS, CMP #### [address] #### CH50, C4, C3 #### [facility] , ALT [Catalytic activity/Vol] 38 U/L Normal 7-52 [facility] Comment on above: Performed By: #### E SR, DIFF CBC, ADDONUAPLUS, CMP #### [facility] [address] [place] [address] [place] #### CH50, C4, C3 #### [facility] , Anion gap [Moles/Vol] 13.3 mmol/L Normal 6.0-15.[address] [facility] Comment on above: Performed By: #### E SR, DIFF CBC, ADDONUAPLUS, CMP #### [place] [address] [place] #### CH50, C4, C3 #### [facility] , AST [Catalytic activity/Vol] 19 U/L Normal 13-39 [facility] Comment on above: Performed By: #### E SR, DIFF CBC, ADDONUAPLUS, CMP #### [facility] [address] [place] [address] [place] #### CH50, C4, C3 #### [facility] , Bilirubin [Mass/Vol] 0.4 mg/dL Normal 0.3-1.0 [facility] Comment on above: Performed By: #### E SR, DIFF CBC, ADDONUAPLUS, CMP #### [place] [address] [place] #### CH50, C4, C3 #### [facility] , Calcium [Mass/Vol] 8.7 mg/dL Normal 8.6-10.3 [facility] Comment on above: Performed By: #### E SR, DIFF CBC, ADDONUAPLUS, CMP #### [facility] [address] [place] [address] [place] #### CH50, C4, C3 #### [facility] , Chloride [Moles/Vol] 105 mmol/L Normal 98-107 [facility] Comment on above: Performed By: #### E SR, DIFF CBC, ADDONUAPLUS, CMP #### [place] [address] [place] #### CH50, C4, C3 #### [facility] , CO2 [Moles/Vol] 23.0 mmol/L Normal 21.0-31.0 [facility] Comment on above: Performed By: #### E SR, DIFF CBC, ADDONUAPLUS, CMP #### [facility] [address] [place] [address] [place] #### CH50, C4, C3 #### [facility] , Creatinine [Mass/Vol] 0.90 mg/dL Normal 0.70-1.30 [facility] Comment on above: Performed By: #### E SR, DIFF CBC, ADDONUAPLUS, CMP #### [address] [address] [place] #### CH50, C4, C3 #### [facility] , GFR/1.73 sq M.predicted MDRD (S/P/Bld) [Vol rate/Area] mL/min/{1.73_m2} Normal [facility] Comment on above: Performed By: #### E SR, DIFF CBC, ADDONUAPLUS, CMP #### [place] [address] [place] #### CH50, C4, C3 #### [facility] , Globulin (S) [Mass/Vol] 2.0 g/dL Normal [facility] Comment on above: Performed By: #### E SR, DIFF CBC, ADDONUAPLUS, CMP #### [place] [address] [place] #### CH50, C4, C3 #### [facility] , Glucose [Mass/Vol] 110 mg/dL High 70-100 [facility] Comment on above: Result Comment: [facility] Glucose Reference Range is dependent on time and content of last meal. Glucose of more than 200 mg/dL in a nonstressed, ambulatory subject supports the diagnosis of Diabetes Mellitus. ADA recommended reference range Performed By: #### E SR, DIFF CBC, ADDONUAPLUS, CMP #### [place] [address] [place] #### CH50, C4, C3 #### [facility] , Potassium [Moles/Vol] 4.3 mmol/L Normal 3.5-5.1 [facility] Comment on above: Performed By: #### E SR, DIFF CBC, ADDONUAPLUS, CMP #### [place] [address] [place] #### CH50, C4, C3 #### [facility] , Protein [Mass/Vol] 6.1 g/dL Low 6.4-8.9 [facility] Comment on above: Performed By: #### E SR, DIFF CBC, ADDONUAPLUS, CMP #### [place] [address] [place] #### CH50, C4, C3 #### [facility] , Sodium [Moles/Vol] 137 mmol/L Normal 136-145 [facility] Comment on above: Performed By: #### E SR, DIFF CBC, ADDONUAPLUS, CMP #### [facility] [address] [place] [address] [place] #### CH50, C4, C3 #### [facility] , Urea nitrogen [Mass/Vol] 22 mg/dL Normal 7-25 [facility] Comment on above: Performed By: #### E SR, DIFF CBC, ADDONUAPLUS, CMP #### [place] [address] [place] #### CH50, C4, C3 #### [facility] , Creatinine [Mass/volume] in Serum or PlasmaOrdered By: Christine Sanchez on 04-18-2025 Creatinine [Mass/Vol] Creatinine [Mass/v olume] in Serum or Plasma 0.70-1.30 [facility] Diff and CBCon 04-18-2025 Basophils/100 WBC (Bld) 0 % Normal 0-2 [facility] Comment on above: Performed By: #### E SR, DIFF CBC, ADDONUAPLUS, CMP #### [facility] [address] [place] [address] [place] #### CH50, C4, C3 #### [facility] , Eosinophils/100 WBC (Bld) 0 % Low 1-3 [facility] Comment on above: Performed By: #### E SR, DIFF CBC, ADDONUAPLUS, CMP #### [facility] [address] [place] [address] [place] #### CH50, C4, C3 #### [facility] , Erythrocyte distribution width (RBC) [Ratio] 14.9 % High 12.0-14.8 [facility] Comment on above: Performed By: #### E SR, DIFF CBC, ADDONUAPLUS, CMP #### [place] [address] [place] #### CH50, C4, C3 #### [facility] , Hematocrit (Bld) [Volume fraction] 45.5 % Normal 38.8-50.0 [facility] Comment on above: Performed By: #### E SR, DIFF CBC, ADDONUAPLUS, CMP #### [place] [address] [place] #### CH50, C4, C3 #### [facility] , Hemoglobin (Bld) [Mass/Vol] 15.8 g/dL Normal 13.0-17.0 [facility] Comment on above: Performed By: #### E SR, DIFF CBC, ADDONUAPLUS, CMP #### [place] [address] [place] #### CH50, C4, C3 #### [facility] , Lymphocytes/100 WBC (Bld) 8 % Low 18-42 [facility] Comment on above: Performed By: #### E SR, DIFF CBC, ADDONUAPLUS, CMP #### [address] #### CH50, C4, C3 #### [facility] , MCH (RBC) [Entitic mass] 31.6 pg Normal 27.5-35.2 [facility] Comment on above: Performed By: #### E SR, DIFF CBC, ADDONUAPLUS, CMP #### [place] [address] [place] #### CH50, C4, C3 #### [facility] , MCV (RBC) [Entitic vol] 90.9 fL Normal 83.5-101 [facility] Comment on above: Performed By: #### E SR, DIFF CBC, ADDONUAPLUS, CMP #### [place] [address] [place] #### CH50, C4, C3 #### [facility] , Mean Corpuscular HGB Conc 34.8 g/dL Normal 32.5-35.6 [facility] Comment on above: Performed By: #### E SR, DIFF CBC, ADDONUAPLUS, CMP #### [address] #### CH50, C4, C3 #### [facility] , Metamyelocytes 1 % High 0-0 [facility] Comment on above: Performed By: #### E SR, DIFF CBC, ADDONUAPLUS, CMP #### [address] #### CH50, C4, C3 #### [facility] , Monocytes/100 WBC (Bld) 19 % High 2-11 [facility] Comment on above: Performed By: #### E SR, DIFF CBC, ADDONUAPLUS, CMP #### [address] #### CH50, C4, C3 #### [facility] , Myelocytes 3 % High 0-0 [facility] Comment on above: Performed By: #### E SR, DIFF CBC, ADDONUAPLUS, CMP #### [address] #### CH50, C4, C3 #### [facility] , Platelet Estimate Normal Normal Normal [facility] Comment on above: Performed By: #### E SR, DIFF CBC, ADDONUAPLUS, CMP #### [facility] [address] [place] [address] [place] #### CH50, C4, C3 #### [facility] , Platelet mean volume (Bld) [Entitic vol] 8.3 fL Normal 6.6-10.1 [facility] Comment on above: Performed By: #### E SR, DIFF CBC, ADDONUAPLUS, CMP #### [address] #### CH50, C4, C3 #### [facility] , Platelet Morphology Normal Normal Normal [facility] Comment on above: Performed By: #### E SR, DIFF CBC, ADDONUAPLUS, CMP #### [address] #### CH50, C4, C3 #### [facility] , Platelets (Bld) [#/Vol] 207 10*3/uL Normal 150-450 [facility] Comment on above: Performed By: #### E SR, DIFF CBC, ADDONUAPLUS, CMP #### [address] #### CH50, C4, C3 #### [facility] , RBC (Bld) [#/Vol] 5.01 10*6/uL Normal 3.90-5.60 [facility] Comment on above: Performed By: #### E SR, DIFF CBC, ADDONUAPLUS, CMP #### [place] [address] [place] #### CH50, C4, C3 #### [facility] , RBC morphology finding Nom (Bld) Normal Normal Normal [facility] Comment on above: Performed By: #### E SR, DIFF CBC, ADDONUAPLUS, CMP #### [facility] [address] [place] [address] [place] #### CH50, C4, C3 #### [facility] , Segmented neutrophils/100 WBC (Bld) 69 % Normal 50-70 [facility] Comment on above: Performed By: #### E SR, DIFF CBC, ADDONUAPLUS, CMP #### [place] [address] [place] #### CH50, C4, C3 #### [facility] , WBC (Bld) [#/Vol] 5.5 10*3/uL Normal 4.1-10.5 [facility] Comment on above: Performed By: #### E SR, DIFF CBC, ADDONUAPLUS, CMP #### [address] #### CH50, C4, C3 #### [facility] , Dipstick and Microscopicon 0 04-18-2025 Appearance (U) Clear Normal Clear [facility] Comment on above: Order Comment: Name Collection Type:: Clean-Voided Midstream Performed By: #### E SR, DIFF CBC, ADDONUAPLUS, CMP #### [address] #### CH50, C4, C3 #### [facility] , Bacteria,Urine Rare Normal None Seen [facility] Comment on above: Order Comment: Name Collection Type:: Clean-Voided Midstream Performed By: #### E SR, DIFF CBC, ADDONUAPLUS, CMP #### [address] #### CH50, C4, C3 #### [facility] , Bilirubin,Urine Negative Normal Negative [facility] Comment on above: Order Comment: Name Collection Type:: Clean-Voided Midstream Performed By: #### E SR, DIFF CBC, ADDONUAPLUS, CMP #### [address] #### CH50, C4, C3 #### [facility] , Color (U) Yellow Normal Yellow [facility] Comment on above: Order Comment: Name Collection Type:: Clean-Voided Midstream Performed By: #### E SR, DIFF CBC, ADDONUAPLUS, CMP #### [address] #### CH50, C4, C3 #### [facility] , Glucose Ql (U) Normal Normal Normal [facility] Comment on above: Order Comment: Name Collection Type:: Clean-Voided Midstream Performed By: #### E SR, DIFF CBC, ADDONUAPLUS, CMP #### [address] #### CH50, C4, C3 #### [facility] , Hyaline Casts,Urine 0-8 Normal 0-8 [facility] Comment on above: Order Comment: Name Collection Type:: Clean-Voided Midstream Performed By: #### E SR, DIFF CBC, ADDONUAPLUS, CMP #### [address] #### CH50, C4, C3 #### [facility] , Ketones Ql (U) Negative Normal Negative [facility] Comment on above: Order Comment: Name Collection Type:: Clean-Voided Midstream Performed By: #### E SR, DIFF CBC, ADDONUAPLUS, CMP #### [address] #### CH50, C4, C3 #### [facility] , Leukocyte esterase Test strip Ql (U) Negative Normal Negative [facility] Comment on above: Order Comment: Name Collection Type:: Clean-Voided Midstream Performed By: #### E SR, DIFF CBC, ADDONUAPLUS, CMP #### [address] #### CH50, C4, C3 #### [facility] , Mucus,Urine 4+ Critically abnormal [facility] Comment on above: Order Comment: Name Collection Type:: Clean-Voided Midstream Result Comment: PERF ORMED BY: [place] [address] PATHOLOGIST CREASING MACHINE OPERATOR LANIE ALVARES M.D. Performed By: #### E SR, DIFF CBC, ADDONUAPLUS, CMP #### [address] #### CH50, C4, C3 #### [facility] , Nitrite,Urine Negative Normal Negative [facility] Comment on above: Order Comment: Name Collection Type:: Clean-Voided Midstream Performed By: #### E SR, DIFF CBC, ADDONUAPLUS, CMP #### [address] #### CH50, C4, C3 #### [facility] , Occult Blood,Urine Negative Normal Negative [facility] Comment on above: Order Comment: Name Collection Type:: Clean-Voided Midstream Performed By: #### E SR, DIFF CBC, ADDONUAPLUS, CMP #### [address] #### CH50, C4, C3 #### [facility] , pH (U) 6.0 [pH] Normal 5.0-9.0 [facility] Comment on above: Order Comment: Name Collection Type:: Clean-Voided Midstream Performed By: #### E SR, DIFF CBC, ADDONUAPLUS, CMP #### [address] #### CH50, C4, C3 #### [facility] , Protein (U) [Mass/Vol] 50 mg/dL High Negative Th [facility] Comment on above: Order Comment: Name Collection Type:: Clean-Voided Midstream Performed By: #### E SR, DIFF CBC, ADDONUAPLUS, CMP #### [address] #### CH50, C4, C3 #### [facility] , RBC,Urine 1-2 Normal 0-4 [facility] Comment on above: Order Comment: Name Collection Type:: Clean-Voided Midstream Performed By: #### E SR, DIFF CBC, ADDONUAPLUS, CMP #### [address] #### CH50, C4, C3 #### [facility] , Specificy [place],Urine 1.027 Normal 1.001-1.03 0 [facility] Comment on above: Order Comment: Name Collection Type:: Clean-Voided Midstream Performed By: #### E SR, DIFF CBC, ADDONUAPLUS, CMP #### [facility] [address] [place] [address] #### CH50, C4, C3 #### [facility] , Urobilinogen,Urine Normal Normal Normal [facility] Comment on above: Order Comment: Name Collection Type:: Clean-Voided Midstream Performed By: #### E SR, DIFF CBC, ADDONUAPLUS, CMP #### [facility] [address] [place] [address] [place] #### CH50, C4, C3 #### [facility] , WBC,Urine 1-2 Normal 0-4 [facility] Comment on above: Order Comment: Name Collection Type:: Clean-Voided Midstream Performed By: #### E SR, DIFF CBC, ADDONUAPLUS, CMP #### [facility] [address] [place] [address] [place] #### CH50, C4, C3 #### [facility] , Eosinophils Auto (Bld) [#/Vo l]Ordered By: Christine Sanchez on 04-18-2025 Eosinophils (Bld) [#/Vol] Automated eosinophil count [facility] Eosinophils/100 WBC Auto (Bl d)Ordered By: Christine Sanchez on 04-18-2025 Eosinophils/100 WBC (Bld) Automated eosinophil % [facility] Eosinophils/100 WBC Manual c nt (Bld)Ordered By: Christine Sanchez on 04-18-2025 Eosinophils/100 WBC (Bld) Eosinophils/100 leukocytes in Blood by Manual count Low 1-3 [facility] Epithelial cells.squamous [# /area] in Urine sediment by Automated countOrdered By: Christine Sanchez on 04-18-2025 Epithelial cells.squamous Auto (Urine sed) [#/Area] Epithelial cells.squamous [#/area] in Urine sediment by Automated count [facility] Erythrocyte Sedimentation Ra bruno 04-18-2025 ESR (Bld) [Velocity] 4 mm/h Normal 0-19 [facility] Comment on above: Result Comment: PERF ORMED BY: [place] [address] PATHOLOGIST CREASING MACHINE OPERATOR LANIE ALVARES M.D. Performed By: #### E SR, DIFF CBC, ADDONUAPLUS, CMP #### [place] [address] [place] #### CH50, C4, C3 #### [facility] , Erythrocyte distribution wid th Auto (RBC) [Ratio]Ordered By: Christine Sanchez on 04-18-2025 Erythrocyte distribution width (RBC) [Ratio] Erythrocyte distribution width [Ratio] by Automated count High 12.0-14.8 [facility] Erythrocyte morphology findi ng [Identifier] in BloodOrdered By: Christine Sanchez on 04-18-2025 RBC morphology finding Nom (Bld) RBC morphology Normal [facility] Erythrocyte sedimentation ra te by Photometric methodOrdered By: Christine Sanchez on 04-18-2025 ESR Photometric method (Bld) [Velocity] Erythrocyte sedimentation rate by Photometric method 0-19 [facility] Erythrocytes [#/area] in Uri ne sediment by Automated countOrdered By: Christine Sanchez on 04-18-2025 RBC Auto (Urine sed) [#/Area] Erythrocytes [#/area] in Urine sediment by Automated count 0-4 [facility] Globulin Calc (S) [Mass/Vol] Ordered By: Christine Sanchez on 04-18-2025 Globulin (S) [Mass/Vol] Serum globulin measurement by calculation (mass/volume) [facility] Glucose [Mass/volume] in Ser um or PlasmaOrdered By: Christine Sanchez on 04-18-2025 Glucose [Mass/Vol] Glucose [Mass/volume ] in Serum or Plasma High 70-100 [facility] Comment on above: ADA recommended refe rence rangeRandom Glucose Reference Range is dependent on time and content of last meal. Glucose of more than 200 mg/dL in a nonstressed, ambulatory subject supports the diagnosis of Diabetes Mellitus. Glucose [Mass/volume] in Uri ne by Test stripOrdered By: Christine Sanchez on 04-18-2025 Glucose Test strip (U) [Mass/Vol] Glucose [Mass/volume] in Urine by Test strip Normal [facility] Hematocrit Auto (Bld) [Volum e fraction]Ordered By: Christine Sanchez on 04-18-2025 Hematocrit (Bld) [Volume fraction] Hematocrit [Volume Fraction] of Blood by Automated count 38.8-50.0 [facility] Hemoglobin Test strip Ql (U) Ordered By: Christine Sanchez on 04-18-2025 Hemoglobin Ql (U) Hemoglobin [Presence ] in Urine by Test strip Negative [facility] Hemoglobin [Mass/volume] in BloodOrdered By: Christine Sanchez on 04-18-2025 Hemoglobin (Bld) [Mass/Vol] Hemoglobin [Mass/volume] in Blood 13.0-17.0 [facility] Hyaline casts [#/area] in Ur ine sediment by Automated countOrdered By: Christine Sanchez on 04-18-2025 Hyaline casts Auto (Urine sed) [#/Area] Hyaline casts [#/area] in Urine sediment by Automated count 0-8 [facility] Ketones Test strip Ql (U)Ord ered By: Christine Sanchez on 04-18-2025 Ketones Ql (U) Ketones [Presence] i n Urine by Test strip Negative [facility] Leukocyte esterase [Presence ] in Urine by Test stripOrdered By: Christine Sanchez on 04-18-2025 Leukocyte esterase Test strip Ql (U) Leukocyte esterase [Presence] in Urine by Test strip Negative [facility] Leukocytes [#/area] in Urine sediment by Automated countOrdered By: Christine Sanchez on 04-18-2025 WBC Auto (Urine sed) [#/Area] Leukocytes [#/area] in Urine sediment by Automated count 0-4 [facility] Leukocytes [#/volume] correc nat for nucleated erythrocytes in Blood by Automated counOrdered By: Christine Sanchez on 04-18-2025 WBC corrected for nucl RBC Auto (Bld) [#/Vol] Leukocytes [#/volume] corrected for nucleated erythrocytes in Blood by Automated coun 4.1-10.5 [facility] Lymphocytes Auto (Bld) [#/Vo l]Ordered By: Christine Sanchez on 04-18-2025 Lymphocytes (Bld) [#/Vol] Lymphocytes [#/volume] in Blood by Automated count [facility] Lymphocytes/100 WBC Auto (Bl d)Ordered By: Christine Sanchez on 04-18-2025 Lymphocytes/100 WBC (Bld) Lymphocytes/100 leukocytes in Blood by Automated count [facility] Lymphocytes/100 WBC Manual c nt (Bld)Ordered By: Christine Sanchez on 04-18-2025 Lymphocytes/100 WBC (Bld) Lymphocytes/100 leukocytes in Blood by Manual count Low 18-42 [facility] MCH Auto (RBC) [Entitic mass ]Ordered By: Christine Sanchez on 04-18-2025 MCH (RBC) [Entitic mass] MCH [Entitic mass] by Automated count 27.5-35.2 [facility] MCHC Auto (RBC) [Mass/Vol]Or dered By: Christine Sanchez on 04-18-2025 MCHC (RBC) [Mass/Vol] MCHC [Mass/volume] by Automated count 32.5-35.6 [facility] MCV Auto (RBC) [Entitic vol] Ordered By: Christine Sanchez on 04-18-2025 MCV (RBC) [Entitic vol] MCV [Entitic volume] by Automated count 83.5-101 [facility] Metamyelocytes/100 WBC Manua l cnt (Bld)Ordered By: Christine Sanchez on 04-18-2025 Metamyelocytes/100 WBC (Bld) Metamyelocytes/100 leukocytes in Blood by Manual count High 0-0 [facility] Monocytes Auto (Bld) [#/Vol] Ordered By: Christine Sanchez on 04-18-2025 Monocytes (Bld) [#/Vol] Automated blood monocyte count [facility] Monocytes/100 WBC Auto (Bld) Ordered By: Christine Sanchez on 04-18-2025 Monocytes/100 WBC (Bld) Automated monocyte % [facility] Monocytes/100 WBC Manual cnt (Bld)Ordered By: Christine Sanchez on 04-18-2025 Monocytes/100 WBC (Bld) Monocytes/100 leukocytes in Blood by Manual count High 2-11 [facility] Mucus [Presence] in Urine by AutomatedOrdered By: Christine Sanchez on 04-18-2025 Mucus Auto Ql (U) Mucus [Presence] in Urine by Automated Abnormal [facility] Myelocytes/100 WBC Manual cn t (Bld)Ordered By: Christine Sanchez on 04-18-2025 Myelocytes/100 WBC (Bld) Myelocytes/100 leukocytes in Blood by Manual count High 0-0 [facility] Neutrophils Auto (Bld) [#/Vo l]Ordered By: Christine Sanchez on 04-18-2025 Neutrophils (Bld) [#/Vol] Neutrophils [#/volume] in Blood by Automated count [facility] Neutrophils/100 WBC Auto (Bl d)Ordered By: Christine Sanchez on 04-18-2025 Neutrophils/100 WBC (Bld) Automated neutrophil % [facility] Nitrite Test strip Ql (U)Ord ered By: Christine Sanchez on 04-18-2025 Nitrite Ql (U) Nitrite [Presence] i n Urine by Test strip Negative [facility] No Panel InformationOrdered By: Christine Sanchez on 04-18-2025 Estimated GFR (CKD-EPI) > 60.0 mL/Min [facility] Creatinine Clearance (Chem N/A [facility] Nucleated erythrocytes [Pres ence] in Blood by Automated countOrdered By: Christine Sanchez on 04-18-2025 Nucleated RBC Auto Ql (Bld) Nucleated erythrocytes [Presence] in Blood by Automated count [facility] Platelet adequacy [Presence] in Blood by Light microscopyOrdered By: Christine Sanchez on 04-18-2025 Platelets LM Ql (Bld) Platelet adequacy [Presence] in Blood by Light microscopy Normal [facility] Platelet mean volume Auto (B ld) [Entitic vol]Ordered By: Christine Sanchez on 04-18-2025 Platelet mean volume (Bld) [Entitic vol] Platelet mean volume [Entitic volume] in Blood by Automated count 6.6-10.1 [facility] Platelet morphology finding [Identifier] in BloodOrdered By: Christine Sanchez on 04-18-2025 Platelet morphology finding Nom (Bld) Platelet morphology finding [Identifier] in Blood Normal [facility] Platelets Auto (Bld) [#/Vol] Ordered By: Christine Sanchez on 04-18-2025 Platelets (Bld) [#/Vol] Platelets [#/volume] in Blood by Automated count 150-450 [facility] Potassium [Moles/volume] in Serum or PlasmaOrdered By: Christine Sanchez on 04-18-2025 Potassium [Moles/Vol] Potassium [Moles/v olume] in Serum or Plasma 3.5-5.1 [facility] Protein Test strip (U) [Mass /Vol]Ordered By: Christine Sanchez on 04-18-2025 Protein (U) [Mass/Vol] Protein [Mass/vol ume] in Urine by Test strip High Negative [facility] Protein [Mass/volume] in Ser um or PlasmaOrdered By: Christine Sanchez on 04-18-2025 Protein [Mass/Vol] Protein [Mass/volume ] in Serum or Plasma Low 6.4-8.9 [facility] RBC Auto (Bld) [#/Vol]Ordere d By: Christine Sanchez on 04-18-2025 RBC (Bld) [#/Vol] Erythrocytes [#/volu me] in Blood by Automated count 3.90-5.60 [facility] Segmented neutrophils/100 WB C Manual cnt (Bld)Ordered By: Christine Sanchez on 04-18-2025 Segmented neutrophils/100 WBC (Bld) Manual blood segmented neutrophils/100 leukocytes 50-70 [facility] Serum or plasma albumin/glob ulin mass ratioOrdered By: Christine Sanchez on 04-18-2025 Albumin/Globulin [Mass ratio] Serum or plasma albumin/globulin mass ratio [facility] Serum or plasma anion gap de terminationOrdered By: Christine Sanchez on 04-18-2025 Anion gap [Moles/Vol] Serum or plasma an ion gap determination 6.0-15.0 [facility] Serum or plasma complement C 3 measurement (mass/volume)Ordered By: Christine Sanchez on 04-18-2025 Complement C3 [Mass/Vol] Serum or plasma complement C3 measurement (mass/volume) 82-167 [facility] Comment on above: Performed at: - [facility] [address] [id number] Director: Richy Ardon PhD, Phone: [phone] Serum or plasma complement C 4 measurement (mass/volume)Ordered By: Christine Sanchez on 04-18-2025 Complement C4 [Mass/Vol] Serum or plasma complement C4 measurement (mass/volume) 12-38 [facility] Sodium [Moles/volume] in Ser um or PlasmaOrdered By: Christine Sanchez on 04-18-2025 Sodium [Moles/Vol] Sodium [Moles/volume ] in Serum or Plasma 136-145 [facility] Specific gravity Test strip (U) [Rel density]Ordered By: Christine Sanchez on 04-18-2025 Specific gravity (U) [Rel density] Specific gravity of Urine by Test strip 1.001-1.03 0 [facility] Total hemolytic complement C H50 assayOrdered By: Christine Sanchez on 04-18-2025 Total Complement (CH50) 58 U/mL >41 [facility] Comment on above: Age Male [...] to determine out of range values.Performed at: [facility] [address] [id number] Director: Richy Ardon PhD, Phone: [phone] Urea nitrogen [Mass/volume] in Serum or PlasmaOrdered By: Christine Sanchez on 04-18-2025 Urea nitrogen [Mass/Vol] Urea nitrogen [Mass/volume] in Serum or Plasma 7-25 [facility] Urobilinogen Test strip (U) [Mass/Vol]Ordered By: Christine Sanchez on 04-18-2025 Urobilinogen (U) [Mass/Vol] Urobilinogen [Mass/volume] in Urine by Test strip Normal [facility] WBC Auto (Bld) [#/Vol]Ordere d By: Christine Sanchez on 04-18-2025 WBC (Bld) [#/Vol] Leukocytes [#/volume ] in Blood by Automated count 4.1-10.5 [facility] pH Test strip (U)Ordered By: Christine Sanchez on 04-18-2025 pH (U) pH of Urine by Test strip 5.0-9.0 [facility] X-ray reportOrdered By: Yaneth Bill on 04-10-2025 Study report [facility] [place] [address] [place] [place] [address] XRay Report Signed Patient: Valentin Torre MR#: [id number] : 1955 Acct:[id number] Age/Sex: 69 / M ADM Date: 5 Loc: [facility] Room: Type: [facility] Attending Dr: Jaime Murcia II, MD Copies to: Jaime Murcia MD~ Ordering Provider: Jaime Murcia MD Date of Service: 04/10/25 XR/XR knee RT 4V*: M76.31 - Iliotibial band syndrome,right leg XR knee RT 4V* 04/10/2025 8:56 [...] for synovial osteochondromatosis. There is a small jointeffusion. No soft tissue swelling. No fracture. XR/XR knee RT 4V* IMPRESSION: No acute bony injury. Tricompartmental degenerative changes are redemonstrated. 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 This is unchanged. Impression dictated by: Yaneth Bill M.D. 04/10/2025 1:53 PM Dictation Location: [employer]-19 Transcribed By: MARV 04/10/25 1353 Dictated By: Yaneth Bill II, MD 04/10/251351 Signed By: 04/10/251352 [facility] Work Phone: XR knee RT 4V*on 04-10-2025 XR knee RT 4V* [facility] [place] [address] [place] [place] [address] XRay Report Signed Patient: Valentin Torre MR#: [id number] : 1955 Acct:[id number] Age/Sex: 69 / M ADM Date: 04/10/25 Loc: [facility] Room: Type: [facility] Attending Dr: Jaime Murcia II, MD Copies to: Jaime Murcia MD Ordering Provider: Jaime Murcia MD Date of Service: 04/10/25 XR/XR knee RT 4V*: M76.31 - Iliotibial band syndrome, right leg XR knee RT 4V* 04/10/2025 8:56 AM SIGNS AND SYMPTOMS: M76.31 - Iliotibial band syndrome, right leg PROTOCOL: [...] osteochondromatosis. This is unchanged. Impression dictated by: Yaneth Bill M.D. 04/10/2025 1:53 PM Dictation Location: [facility]-19 Transcribed By: MARV 04/10/25 1353 Dictated By: Yaneth Bill II, MD 04/10/25 1352 Signed By: 04/10/25 1353 Normal [facility] Alanine aminotransferase [En zymatic activity/volume] in Serum or PlasmaOrdered By: Marley Dumont on 02-16-2025 ALT [Catalytic activity/Vol] Alanine aminotransferase [Enzymatic activity/volume] in Serum or Plasma 7-52 [facility] Albumin [Mass/volume] in Ser um or Plasma by Bromocresol green (BCG) dye binding methoOrdered By: Obhayde Dumont on 02-16-2025 Albumin BCG dye [Mass/Vol] Albumin [Mass/volume] in Serum or Plasma by Bromocresol green (BCG) dye binding metho 3.5-5.7 [facility] Alkaline phosphatase [Enzyma tic activity/volume] in Serum or PlasmaOrdered By: Obhayde Wetzelomar on 02-16-2025 ALP [Catalytic activity/Vol] Alkaline phosphatase [Enzymatic activity/volume] in Serum or Plasma 34-104 [facility] Aspartate aminotransferase [ Enzymatic activity/volume] in Serum or PlasmaOrdered By: Obhayde Wetzelomar on 02-16-2025 AST [Catalytic activity/Vol] Aspartate aminotransferase [Enzymatic activity/volume] in Serum or Plasma 13-39 [facility] Basophils Auto (Bld) [#/Vol] Ordered By: Marley Wetzelomar on 02-16-2025 Basophils (Bld) [#/Vol] Automated basophil count 0.0-0.2 [facility] Basophils/100 WBC Auto (Bld) Ordered By: Marley Wetzelomar on 02-16-2025 Basophils/100 WBC (Bld) Automated basophil % . [facility] Bilirubin.total [Mass/volume ] in Serum or PlasmaOrdered By: Obivonnedaclaritza Wetzelomar on 02-16-2025 Bilirubin [Mass/Vol] Bilirubin.total [Mass/volume] in Serum or Plasma 0.3-1.0 [facility] Calcium [Mass/volume] in Ser um or PlasmaOrdered By: Obivonnedaclaritza Wetzelomar on 02-16-2025 Calcium [Mass/Vol] Calcium [Mass/volume ] in Serum or Plasma 8.6-10.3 [facility] Carbon dioxide, total [Moles /volume] in Serum or PlasmaOrdered By: Marley Wetzelomar on 02-16-2025 CO2 [Moles/Vol] Carbon dioxide, tota l [Moles/volume] in Serum or Plasma Low 21.0-31.0 [facility] Chloride [Moles/volume] in S ace or PlasmaOrdered By: Obaydaclaritza Daromar on 02-16-2025 Chloride [Moles/Vol] Chloride [Moles/vol ume] in Serum or Plasma 98-107 [facility] Complete Blood Count Auto Di ffon 02-16-2025 Basophils (Bld) [#/Vol] 0.0 10*3/uL Normal 0.0-0.2 [facility] Comment on above: Result Comment: PERF ORMED BY: [place] [address] PATHOLOGIST CREASING MACHINE OPERATOR HECTOR MEJIA M.D. Performed By: #### C MP, CBC #### [address] Basophils/100 WBC (Bld) 0.3 % Normal . [facility] Comment on above: Performed By: #### C MP, CBC #### [address] Eosinophils (Bld) [#/Vol] 0.1 10*3/uL Normal 0.0-0.45 [facility] Comment on above: Performed By: #### C MP, CBC #### [address] Eosinophils/100 WBC (Bld) 0.7 % Normal . [facility] Comment on above: Performed By: #### C MP, CBC #### [address] Erythrocyte distribution width (RBC) [Ratio] 15.4 % High 12.0-14.8 [facility] Comment on above: Performed By: #### C MP, CBC #### [address] Hematocrit (Bld) [Volume fraction] 46.5 % Normal 38.8-50.0 [facility] Comment on above: Performed By: #### C MP, CBC #### [address] Hemoglobin (Bld) [Mass/Vol] 16.0 g/dL Normal 13.0-17.0 [facility] Comment on above: Performed By: #### C MP, CBC #### [address] Lymphocytes (Bld) [#/Vol] 1.0 10*3/uL Normal 1.00-4.8 [facility] Comment on above: Performed By: #### C MP, CBC #### [address] Lymphocytes/100 WBC (Bld) 11.0 % Normal . [facility] Comment on above: Performed By: #### C MP, CBC #### [address] MCH (RBC) [Entitic mass] 31.5 pg Normal 27.5-35.2 [facility] Comment on above: Performed By: #### C MP, CBC #### [address] MCV (RBC) [Entitic vol] 91.6 fL Normal 83.5-101 [facility] Comment on above: Performed By: #### C MP, CBC #### [address] Mean Corpuscular HGB Conc 34.4 g/dL Normal 32.5-35.6 [facility] Comment on above: Performed By: #### C MP, CBC #### [address] Monocytes (Bld) [#/Vol] 0.9 10*3/uL High 0.0-0.8 [facility] Comment on above: Performed By: #### C MP, CBC #### [address] Monocytes/100 WBC (Bld) 9.6 % Normal . [facility] Comment on above: Performed By: #### C MP, CBC #### [address] Neutrophils (Bld) [#/Vol] 7.1 10*3/uL Normal 1.8-7.7 [facility] Comment on above: Performed By: #### C MP, CBC #### [address] Neutrophils/100 WBC (Bld) 78.4 % Normal . [facility] Comment on above: Performed By: #### C MP, CBC #### [address] NRBC% 0.1 /100{WBC} Normal 0-0.5 [facility] Comment on above: Performed By: #### C MP, CBC #### [address] Platelet mean volume (Bld) [Entitic vol] 8.0 fL Normal 6.6-10.1 [facility] Comment on above: Performed By: #### C MP, CBC #### [address] Platelets (Bld) [#/Vol] 166 10*3/uL Normal 150-450 [facility] Comment on above: Performed By: #### C MP, CBC #### [address] RBC (Bld) [#/Vol] 5.08 10*6/uL Normal 3.90-5.60 [facility] Comment on above: Performed By: #### C MP, CBC #### [address] WBC (Bld) [#/Vol] 9.1 10*3/uL Normal 4.1-10.5 [facility] Comment on above: Performed By: #### C MP, CBC #### [address] Comprehensive Metabolic Pane vivek 03-29-2025 Albumin [Mass/Vol] 4.1 g/dL Normal 3.5-5.7 [facility] Comment on above: Performed By: #### C MP, CBC #### [address] Albumin/Globulin [Mass ratio] 1.9 {ratio} Normal [facility] Comment on above: Performed By: #### C MP, CBC #### [address] ALP [Catalytic activity/Vol] 64 U/L Normal 34-104 [facility] Comment on above: Performed By: #### C MP, CBC #### [address] ALT [Catalytic activity/Vol] 21 U/L Normal 7-52 [facility] Comment on above: Performed By: #### C MP, CBC #### [address] Anion gap [Moles/Vol] 12.8 mmol/L Normal 6.0-15.[address] [facility] Comment on above: Performed By: #### C MP, CBC #### [address] AST [Catalytic activity/Vol] 15 U/L Normal 13-39 [facility] Comment on above: Performed By: #### C MP, CBC #### [address] Bilirubin [Mass/Vol] 0.8 mg/dL Normal 0.3-1.0 [facility] Comment on above: Performed By: #### C MP, CBC #### [address] Calcium [Mass/Vol] 8.7 mg/dL Normal 8.6-10.3 [facility] Comment on above: Performed By: #### C MP, CBC #### [address] Chloride [Moles/Vol] 106 mmol/L Normal 98-107 [facility] Comment on above: Performed By: #### C MP, CBC #### [address] CO2 [Moles/Vol] 20.6 mmol/L Low 21.0-31.0 [facility] Comment on above: Performed By: #### C MP, CBC #### [address] Creatinine [Mass/Vol] 0.74 mg/dL Normal 0.70-1.30 [facility] Comment on above: Performed By: #### C MP, CBC #### [place] [address] [place] Creatinine Clr Calc Pharmacy 103.16 Normal [facility] Comment on above: Result Comment: PERF ORMED BY: [place] [address] PATHOLOGIST CREASING MACHINE OPERATOR HCETOR MEJIA M.D. Performed By: #### C MP, CBC #### [place] [address] [place] GFR/1.73 sq M.predicted MDRD (S/P/Bld) [Vol rate/Area] mL/min/{1.73_m2} Normal [facility] Comment on above: Performed By: #### C MP, CBC #### [address] Globulin (S) [Mass/Vol] 2.2 g/dL Normal [facility] Comment on above: Performed By: #### C MP, CBC #### [address] Glucose [Mass/Vol] 85 mg/dL Normal 70-100 [facility] Comment on above: Result Comment: [place] Glucose Reference Range is dependent on time and content of last meal. Glucose of more than 200 mg/dL in a nonstressed, ambulatory subject supports the diagnosis of Diabetes Mellitus. ADA recommended reference range Performed By: #### C MP, CBC #### [address] Potassium [Moles/Vol] 4.4 mmol/L Normal 3.5-5.1 [facility] Comment on above: Performed By: #### C MP, CBC #### [facility] [address] Protein [Mass/Vol] 6.3 g/dL Low 6.4-8.9 [facility] Comment on above: Performed By: #### C MP, CBC #### [facility] [address] Sodium [Moles/Vol] 135 mmol/L Low 136-145 [facility] Comment on above: Performed By: #### C MP, CBC #### [facility] [address] Urea nitrogen [Mass/Vol] 21 mg/dL Normal 7-25 [facility] Comment on above: Performed By: #### C MP, CBC #### [facility] [address] Creatinine [Mass/volume] in Serum or PlasmaOrdered By: Obivonnedah Netseeromar on 02-16-2025 Creatinine [Mass/Vol] Creatinine [Mass/v olume] in Serum or Plasma 0.70-1.30 [facility] Eosinophils Auto (Bld) [#/Vo l]Ordered By: ObHarvestdaEureka Therapeuticsomar on 02-16-2025 Eosinophils (Bld) [#/Vol] Automated eosinophil count 0.0-0.45 [facility] Eosinophils/100 WBC Auto (Bl d)Ordered By: ObHarvestdaEureka Therapeuticsomar on 02-16-2025 Eosinophils/100 WBC (Bld) Automated eosinophil % . [facility] Erythrocyte distribution wid th Auto (RBC) [Ratio]Ordered By: ObHarvestdaEureka Therapeuticsomar on 02-16-2025 Erythrocyte distribution width (RBC) [Ratio] Erythrocyte distribution width [Ratio] by Automated count High 12.0-14.8 [facility] Globulin Calc (S) [Mass/Vol] Ordered By: ObHarvestdaEureka Therapeuticsomar on 02-16-2025 Globulin (S) [Mass/Vol] Serum globulin measurement by calculation (mass/volume) [facility] Glucose [Mass/volume] in Ser um or PlasmaOrdered By: Obivonnedaclaritza Wetzelomar on 02-16-2025 Glucose [Mass/Vol] Glucose [Mass/volume ] in Serum or Plasma 70-100 [facility] Comment on above: ADA recommended refe rence rangeRandom Glucose Reference Range is dependent on time and content of last meal. Glucose of more than 200 mg/dL in a nonstressed, ambulatory subject supports the diagnosis of Diabetes Mellitus. Hematocrit Auto (Bld) [Volum e fraction]Ordered By: Obhayde Wetzelomar on 02-16-2025 Hematocrit (Bld) [Volume fraction] Hematocrit [Volume Fraction] of Blood by Automated count 38.8-50.0 [facility] Hemoglobin [Mass/volume] in BloodOrdered By: Obhayde Wetzelomar on 02-16-2025 Hemoglobin (Bld) [Mass/Vol] Hemoglobin [Mass/volume] in Blood 13.0-17.0 [facility] Leukocytes [#/volume] correc nat for nucleated erythrocytes in Blood by Automated counOrdered By: Marley Wetzelomar on 02-16-2025 WBC corrected for nucl RBC Auto (Bld) [#/Vol] Leukocytes [#/volume] corrected for nucleated erythrocytes in Blood by Automated coun 4.1-10.5 [facility] Lymphocytes Auto (Bld) [#/Vo l]Ordered By: VisuMotionjackieTranscribe[employer] Rashradomar on 02-16-2025 Lymphocytes (Bld) [#/Vol] Lymphocytes [#/volume] in Blood by Automated count 1.00-4.8 [facility] Lymphocytes/100 WBC Auto (Bl d)Ordered By: VisuMotionivonnedaTranscribeMe Rashardomar on 02-16-2025 Lymphocytes/100 WBC (Bld) Lymphocytes/100 leukocytes in Blood by Automated count . [facility] MCH Auto (RBC) [Entitic mass ]Ordered By: [employer] Rashardomar on 02-16-2025 MCH (RBC) [Entitic mass] MCH [Entitic mass] by Automated count 27.5-35.2 [facility] MCHC Auto (RBC) [Mass/Vol]Or dered By: ObFlo Wateromar on 02-16-2025 MCHC (RBC) [Mass/Vol] MCHC [Mass/volume] by Automated count 32.5-35.6 [facility] MCV Auto (RBC) [Entitic vol] Ordered By: Marley Lutzr on 02-16-2025 MCV (RBC) [Entitic vol] MCV [Entitic volume] by Automated count 83.5-101 [facility] Monocytes Auto (Bld) [#/Vol] Ordered By: Marley Wetzelomar on 02-16-2025 Monocytes (Bld) [#/Vol] Automated blood monocyte count High 0.0-0.8 [facility] Monocytes/100 WBC Auto (Bld) Ordered By: Marley Wetzelomar on 02-16-2025 Monocytes/100 WBC (Bld) Automated monocyte % . [facility] Neutrophils Auto (Bld) [#/Vo l]Ordered By: Marley Lutzr on 02-16-2025 Neutrophils (Bld) [#/Vol] Neutrophils [#/volume] in Blood by Automated count 1.8-7.7 [facility] Neutrophils/100 WBC Auto (Bl d)Ordered By: Marley Dumont on 02-16-2025 Neutrophils/100 WBC (Bld) Automated neutrophil % . [facility] No Panel InformationOrdered By: Marley Dumont on 02-16-2025 Estimated GFR (CKD-EPI) > 60.0 mL/Min [facility] Creatinine Clearance (Chem 103.16 [facility] Nucleated erythrocytes [Pres ence] in Blood by Automated countOrdered By: Marley Dumont on 02-16-2025 Nucleated RBC Auto Ql (Bld) Nucleated erythrocytes [Presence] in Blood by Automated count 0-0.5 [facility] Platelet mean volume Auto (B ld) [Entitic vol]Ordered By: Marley Lutzr on 02-16-2025 Platelet mean volume (Bld) [Entitic vol] Platelet mean volume [Entitic volume] in Blood by Automated count 6.6-10.1 [facility] Platelets Auto (Bld) [#/Vol] Ordered By: Marley Lutzr on 02-16-2025 Platelets (Bld) [#/Vol] Platelets [#/volume] in Blood by Automated count 150-450 [facility] Potassium [Moles/volume] in Serum or PlasmaOrdered By: Obaydah Daromar on 02-16-2025 Potassium [Moles/Vol] Potassium [Moles/v olume] in Serum or Plasma 3.5-5.1 [facility] Protein [Mass/volume] in Ser um or PlasmaOrdered By: Obaydah Daromar on 02-16-2025 Protein [Mass/Vol] Protein [Mass/volume ] in Serum or Plasma Low 6.4-8.9 [facility] RBC Auto (Bld) [#/Vol]Ordere d By: Obaydah Daromar on 02-16-2025 RBC (Bld) [#/Vol] Erythrocytes [#/volu me] in Blood by Automated count 3.90-5.60 [facility] Serum or plasma albumin/glob ulin mass ratioOrdered By: Obaydah Daromar on 02-16-2025 Albumin/Globulin [Mass ratio] Serum or plasma albumin/globulin mass ratio [facility] Serum or plasma anion gap de terminationOrdered By: Obaydah Daromar on 02-16-2025 Anion gap [Moles/Vol] Serum or plasma an ion gap determination 6.0-15.0 [facility] Sodium [Moles/volume] in Ser um or PlasmaOrdered By: Obaydah Daromar on 02-16-2025 Sodium [Moles/Vol] Sodium [Moles/volume ] in Serum or Plasma Low 136-145 [facility] Troponin I High Sensitivityo n 02-16-2025 Troponin I High Sensitivity 10 Normal 0-20 [facility] Comment on above: Result Comment: The Troponin units of report have been changed to meet the Chest Pain Accreditation requirement, element EC5.M1l2. Troponin units are changed from pg/ml to ng/L. Also, the decimal is removed and results are in whole numbers. PERFORMED BY: [facility] [address] [place] [address] PATHOLOGIST CREASING MACHINE OPERATOR HECTOR MEJIA M.D. Performed By: #### E SR, DIFF CBC, ADDONUAPLUS, CMP #### [facility] [address] [place] [address] [place] #### CH50, C4, C3 #### [facility] , Troponin I.cardiac [Mass/vol ume] in Serum or Plasma by Detection limit <= 0.01 ng/Ordered By: Marley Dumont on 02-16-2025 Troponin I.cardiac DL <= 0.01 ng/mL [Mass/Vol] Troponin I.cardiac [Mass/volume] in Serum or Plasma by Detection limit <= 0.01 ng/ 0-20 [facility] Comment on above: The Troponin units o f report have been changed to meet the Chest Pain Accreditation requirement, element EC5.M1l2. Troponin units are changed from pg/ml to ng/L. Also, the decimal is removed and results are in whole numbers. Urea nitrogen [Mass/volume] in Serum or PlasmaOrdered By: Marley Dumont on 02-16-2025 Urea nitrogen [Mass/Vol] Urea nitrogen [Mass/volume] in Serum or Plasma 06-14 [facility] WBC Auto (Bld) [#/Vol]Ordere d By: Marley Dumont on 02-16-2025 WBC (Bld) [#/Vol] Leukocytes [#/volume ] in Blood by Automated count 4.1-10.5 [facility] B-Type Natriuretic Peptideon 02-15-2025 Natriuretic peptide B (Bld) [Mass/Vol] 31.0 pg/mL Normal 5-100 [facility] Comment on above: Result Comment: PERF ORMED BY: [address] [place] [address] PATHOLOGIST CREASING MACHINE OPERATOR HECTOR MEJIA M.D. Performed By: #### E SR, DIFF CBC, DRISS CMP #### [facility] [address] [place] [address] [place] #### CH50, C4, C3 #### [facility] , Basic Metabolic Panelon 01-20 Anion gap [Moles/Vol] 12.6 mmol/L Normal 6.0-15.0 [facility] Comment on above: Performed By: #### E SR, DIFF CBC, ADDONUAPLUS, CMP #### [place] [address] [place] #### CH50, C4, C3 #### [facility] , Calcium [Mass/Vol] 9.6 mg/dL Normal 8.6-10.3 [facility] Comment on above: Performed By: #### E SR, DIFF CBC, ADDONUAPLUS, CMP #### [address] #### CH50, C4, C3 #### [facility] , Chloride [Moles/Vol] 105 mmol/L Normal 98-107 [facility] Comment on above: Performed By: #### E SR, DIFF CBC, ADDONUAPLUS, CMP #### [place] [address] [place] #### CH50, C4, C3 #### [facility] , CO2 [Moles/Vol] 22.4 mmol/L Normal 21.0-31.0 [facility] Comment on above: Performed By: #### E SR, DIFF CBC, ADDONUAPLUS, CMP #### [address] #### CH50, C4, C3 #### [facility] , Creatinine [Mass/Vol] 0.83 mg/dL Normal 0.70-1.30 [facility] Comment on above: Performed By: #### E SR, DIFF CBC, ADDONUAPLUS, CMP #### [place] [address] [place] #### CH50, C4, C3 #### [facility] , Creatinine Clr Calc Pharmacy 96.68 Normal [facility] Comment on above: Result Comment: PERF ORMED BY: [place] [address] PATHOLOGIST CREASING MACHINE OPERATOR HECTOR MEJIA M.D. Performed By: #### E SR, DIFF CBC, ADDONUAPLUS, CMP #### [place] [address] [place] #### CH50, C4, C3 #### [facility] , GFR/1.73 sq M.predicted MDRD (S/P/Bld) [Vol rate/Area] mL/min/{1.73_m2} Normal [facility] Comment on above: Performed By: #### E SR, DIFF CBC, ADDONUAPLUS, CMP #### [place] [address] [place] #### CH50, C4, C3 #### [facility] , Glucose [Mass/Vol] 105 mg/dL High 70-100 [facility] Comment on above: Result Comment: [place] Glucose Reference Range is dependent on time and content of last meal. Glucose of more than 200 mg/dL in a nonstressed, ambulatory subject supports the diagnosis of Diabetes Mellitus. ADA recommended reference range Performed By: #### E SR, DIFF CBC, ADDONUAPLUS, CMP #### [place] [address] [place] #### CH50, C4, C3 #### [facility] , Potassium [Moles/Vol] 4.0 mmol/L Normal 3.5-5.1 [facility] Comment on above: Performed By: #### E SR, DIFF CBC, ADDONUAPLUS, CMP #### [facility] [address] [place] [address] [place] #### CH50, C4, C3 #### [facility] , Sodium [Moles/Vol] 136 mmol/L Normal 136-145 [facility] Comment on above: Performed By: #### E SR, DIFF CBC, ADDONUAPLUS, CMP #### [place] [address] [place] #### CH50, C4, C3 #### [facility] , Urea nitrogen [Mass/Vol] 25 mg/dL Normal 7-25 [facility] Comment on above: Performed By: #### E SR, DIFF CBC, ADDONUAPLUS, CMP #### [facility] [address] [place] [address] #### CH50, C4, C3 #### [facility] , Basophils Auto (Bld) [#/Vol] Ordered By: Romel Orta on 02-15-2025 Basophils (Bld) [#/Vol] Automated basophil count 0.0-0.2 [facility] Basophils/100 WBC Auto (Bld) Ordered By: Romel Orta on 02-15-2025 Basophils/100 WBC (Bld) Automated basophil % . [facility] Calcium [Mass/volume] in Ser um or PlasmaOrdered By: Romel Orta on 02-15-2025 Calcium [Mass/Vol] Calcium [Mass/volume ] in Serum or Plasma 8.6-10.3 [facility] Carbon dioxide, total [Moles /volume] in Serum or PlasmaOrdered By: Romel Orta on 02-15-2025 CO2 [Moles/Vol] Carbon dioxide, tota l [Moles/volume] in Serum or Plasma 21.0-31.0 [facility] Chloride [Moles/volume] in S ace or PlasmaOrdered By: Romel Orta on 02-15-2025 Chloride [Moles/Vol] Chloride [Moles/vol ume] in Serum or Plasma 98-107 [facility] Complete Blood Count Auto Di ffon 02-15-2025 Basophils (Bld) [#/Vol] 0.0 10*3/uL Normal 0.0-0.2 [facility] Comment on above: Result Comment: PERF ORMED BY: [place] [address] PATHOLOGIST CREASING MACHINE OPERATOR HECTOR MEJIA M.D. Performed By: #### E SR, DIFF CBC, ADDONUAPLUS, CMP #### [address] #### CH50, C4, C3 #### [facility] , Basophils/100 WBC (Bld) 0.3 % Normal . [facility] Comment on above: Performed By: #### E SR, DIFF CBC, ADDONUAPLUS, CMP #### [address] #### CH50, C4, C3 #### [facility] , Eosinophils (Bld) [#/Vol] 0.1 10*3/uL Normal 0.0-0.45 [facility] Comment on above: Performed By: #### E SR, DIFF CBC, ADDONUAPLUS, CMP #### [place] [address] [place] #### CH50, C4, C3 #### [facility] , Eosinophils/100 WBC (Bld) 0.5 % Normal . [facility] Comment on above: Performed By: #### E SR, DIFF CBC, ADDONUAPLUS, CMP #### [place] [address] [place] #### CH50, C4, C3 #### [facility] , Erythrocyte distribution width (RBC) [Ratio] 15.0 % High 12.0-14.8 [facility] Comment on above: Performed By: #### E SR, DIFF CBC, ADDONUAPLUS, CMP #### [place] [address] [place] #### CH50, C4, C3 #### [facility] , Hematocrit (Bld) [Volume fraction] 48.4 % Normal 38.8-50.0 [facility] Comment on above: Performed By: #### E SR, DIFF CBC, ADDONUAPLUS, CMP #### [place] [address] [place] #### CH50, C4, C3 #### [facility] , Hemoglobin (Bld) [Mass/Vol] 16.4 g/dL Normal 13.0-17.0 [facility] Comment on above: Performed By: #### E SR, DIFF CBC, ADDONUAPLUS, CMP #### [place] [address] [place] #### CH50, C4, C3 #### [facility] , Lymphocytes (Bld) [#/Vol] 1.0 10*3/uL Normal 1.00-4.8 [facility] Comment on above: Performed By: #### E SR, DIFF CBC, ADDONUAPLUS, CMP #### [place] [address] [place] #### CH50, C4, C3 #### [facility] , Lymphocytes/100 WBC (Bld) 10.3 % Normal . [facility] Comment on above: Performed By: #### E SR, DIFF CBC, ADDONUAPLUS, CMP #### [place] [address] [place] #### CH50, C4, C3 #### [facility] , MCH (RBC) [Entitic mass] 31.0 pg Normal 27.5-35.2 [facility] Comment on above: Performed By: #### E SR, DIFF CBC, ADDONUAPLUS, CMP #### [address] #### CH50, C4, C3 #### [facility] , MCV (RBC) [Entitic vol] 91.3 fL Normal 83.5-101 [facility] Comment on above: Performed By: #### E SR, DIFF CBC, ADDONUAPLUS, CMP #### [place] [address] [place] #### CH50, C4, C3 #### [facility] , Mean Corpuscular HGB Conc 33.9 g/dL Normal 32.5-35.6 [facility] Comment on above: Performed By: #### E SR, DIFF CBC, ADDONUAPLUS, CMP #### [place] [address] [place] #### CH50, C4, C3 #### [facility] , Monocytes (Bld) [#/Vol] 1.3 10*3/uL High 0.0-0.8 [facility] Comment on above: Performed By: #### E SR, DIFF CBC, ADDONUAPLUS, CMP #### [place] [address] [place] #### CH50, C4, C3 #### [facility] , Monocytes/100 WBC (Bld) 17.25 % Normal 0.00-20.00 [facility] Comment on above: Performed By: #### E SR, DIFF CBC, ADDONUAPLUS, CMP #### [address] #### CH50, C4, C3 #### [facility] , Monocytes/100 WBC (Bld) 14.0 % Normal . [facility] Comment on above: Performed By: #### E SR, DIFF CBC, ADDONUAPLUS, CMP #### [address] #### CH50, C4, C3 #### [facility] , Neutrophils (Bld) [#/Vol] 7.1 10*3/uL Normal 1.8-7.7 [facility] Comment on above: Performed By: #### E SR, DIFF CBC, ADDONUAPLUS, CMP #### [place] [address] [place] #### CH50, C4, C3 #### [facility] , Neutrophils/100 WBC (Bld) 74.9 % Normal . [facility] Comment on above: Performed By: #### E SR, DIFF CBC, ADDONUAPLUS, CMP #### [place] [address] [place] #### CH50, C4, C3 #### [facility] , NRBC% 0.1 /100{WBC} Normal 0-0.5 [facility] Comment on above: Performed By: #### E SR, DIFF CBC, ADDONUAPLUS, CMP #### [address] #### CH50, C4, C3 #### [facility] , Platelet mean volume (Bld) [Entitic vol] 7.9 fL Normal 6.6-10.1 [facility] Comment on above: Performed By: #### E SR, DIFF CBC, ADDONUAPLUS, CMP #### [place] [address] [place] #### CH50, C4, C3 #### [facility] , Platelets (Bld) [#/Vol] 204 10*3/uL Normal 150-450 [facility] Comment on above: Performed By: #### E SR, DIFF CBC, ADDONUAPLUS, CMP #### [address] #### CH50, C4, C3 #### [facility] , RBC (Bld) [#/Vol] 5.30 10*6/uL Normal 3.90-5.60 [facility] Comment on above: Performed By: #### E SR, DIFF CBC, ADDONUAPLUS, CMP #### [place] [address] [place] #### CH50, C4, C3 #### [facility] , WBC (Bld) [#/Vol] 9.5 10*3/uL Normal 4.1-10.5 [facility] Comment on above: Performed By: #### E SR, DIFF CBC, ADDONUAPLUS, CMP #### [place] [address] [place] #### CH50, C4, C3 #### [facility] , Creatine Kinaseon 02-15-2025 CK [Catalytic activity/Vol] 50 U/L Normal 30-223 [facility] Comment on above: Result Comment: PERF ORMED BY: [place] [address] PATHOLOGIST CREASING MACHINE OPERATOR HECTOR MEJIA M.D. Performed By: #### E SR, DIFF CBC, ADDONUAPLUS, CMP #### [place] [address] [place] #### CH50, C4, C3 #### [facility] , Creatine kinase [Enzymatic a ctivity/volume] in Serum or PlasmaOrdered By: Romel Orta on 02-15-2025 CK [Catalytic activity/Vol] Creatine kinase [Enzymatic activity/volume] in Serum or Plasma [facility] Creatinine [Mass/volume] in Serum or PlasmaOrdered By: Romel Orta on 02-15-2025 Creatinine [Mass/Vol] Creatinine [Mass/v olume] in Serum or Plasma 0.70-1.30 [facility] D-Dimer High Sensitivityon 0 02-15-2025 D-Dimer High Sensitivity 200 ng/mL Normal 0-243 [facility] Comment on above: Result Comment: The reference range for D-dimer is <243 ng/mL D-dimer units. D-dimer results must be used in conjunction with a clinical pretest probability (PTP) assessment model for deep vein thrombosis (DVT) and pulmonary embolism (PE). Results <230 ng/mL d-dimer units can be used as a negative predictor in patients with low or moderate probability for DVT/PE. Results above the exclusion threshold of 230 ng/ml D-dimer units for DVT/PE may indicate the need for further diagnostic testing. D-Dimer can be increased in hospitalized patients due to co-morbid conditions. A hematocrit value greater than 55% may lead to inaccurate results in coagulation testing. Patients having hematocrit values >55% require a special collection tube for coagulation studies. Please contact the laboratory at [phone] for redraw instructions. PERFORMED BY: [facility] [address] [place] [address] PATHOLOGIST CREASING MACHINE OPERATOR HECTOR MEJIA M.D. Performed By: #### E SR, DIFF CBC, ADDONUAPLUS, CMP #### [facility] [address] [place] [id number] [place] #### CH50, C4, C3 #### [facility] , ECG 12 lead ECGon 02-15-2025 ECG 12 lead ECG [facility] [address] [place] [id number] Electrocardiograph Report Signed Patient: Valentin Torre MR#: [id number] [birth year] : 1955 Acct:[id number] Age/Sex: 69 / M ADM Date: 02/15/25 Loc: Room: [address] [place] [address] Type: DIS INOo Attending Dr: Gabi Almanzar MD Ordering Provider: Gabi Almanzar MD Date of Service: 02/15/25 ECG/ECG 12 lead ECG: pt evaluation Copies to: Test Reason : Blood Pressure : */* mmHG Vent. Rate : 76 BPM Atrial Rate : 76 BPM P-R Int : 122 ms QRS Dur : 72 ms QT Int : 356 ms P-R-T Axes : 43 -6 -24 degrees QTcB Int : 400 ms Sinus rhythm with occasional premature ventricular complexes Low voltage QRS Inferior infarct , age undetermined Abnormal ECG When compared with ECG of 15-Feb-2025 09:46, Sinus rhythm has replaced Junctional rhythm Inferior infarct is now present Inverted T waves have replaced nonspecific T wave abnormality in Inferior leads Confirmed by Bayron Tim ([id number]) on 02/19/2025 5:14:22 AM Referred By: Electronically Signed By: Baryon Tim Transcribed By: MUS Signed By Bayron Tim MD 02/19/25 0514 Normal [facility] ECG 12 lead ECG [facility] [address] [place] [id number] Electrocardiograph Report Signed Patient: Valentin Torre MR#: [id number] [birth year] : 1955 Acct:[id number] Age/Sex: 69 / M ADM Date: 02/15/25 Loc: ER Room: Type: REG ER Attending Dr: Ordering Provider: Romel Orta DO Date of Service: 02/15/25 ECG/ECG 12 lead ECG: Chest Pain Copies to: Test Reason : Blood Pressure : 143/73 mmHG Vent. Rate : 93 BPM Atrial Rate : 92 BPM P-R Int : * ms QRS Dur : 80 ms QT Int : 348 ms P-R-T Axes : * 31 21 degrees QTcB Int : 432 ms Accelerated Junctional rhythm with frequent and consecutive premature ventricular complexes Nonspecific T wave abnormality Confirmed by Martha Gomes MD ([id number]) on 02/15/2025 11:27:03 AM Referred By: Electronically Signed By: Martha Gomes MD Transcribed By: MUS Signed By Martha Gomes MD 01/20 07/15 1127 Normal [facility] Eosinophils Auto (Bld) [#/Vo l]Ordered By: Romel Orta on 02-15-2025 Eosinophils (Bld) [#/Vol] Automated eosinophil count 0.0-0.45 [facility] Eosinophils/100 WBC Auto (Bl d)Ordered By: Romel Orta on 02-15-2025 Eosinophils/100 WBC (Bld) Automated eosinophil % . [facility] Erythrocyte distribution wid th Auto (RBC) [Ratio]Ordered By: Romel Orta on 02-15-2025 Erythrocyte distribution width (RBC) [Ratio] Erythrocyte distribution width [Ratio] by Automated count High 12.0-14.8 [facility] Fibrin D-dimer [Presence] in Platelet poor plasma by Latex agglutinationOrdered By: Martha Gomes on 02-15-2025 Fibrin D-dimer LA Ql (PPP) Fibrin D-dimer [Presence] in Platelet poor plasma by Latex agglutination 0-243 [facility] Comment on above: The reference range for D-dimer is <243 [...] for DVT/PE may indicate the need for furtherdiagnostic testing.D-Dimer can be increased in hospitalized patients due toco-morbid conditions.A hematocrit value greater than 55% may lead to inaccurate results in coagulation testing. Patients having hematocrit values >55% require a special collection tube for coagulation studies. Please contact the laboratory at [phone] for redraw instructions. Glucose [Mass/volume] in Ser um or PlasmaOrdered By: Romel Orta on 02-15-2025 Glucose [Mass/Vol] Glucose [Mass/volume ] in Serum or Plasma High 70-100 [facility] Comment on above: ADA recommended refe rence rangeRandom Glucose Reference Range is dependent on time and content of last meal. Glucose of more than 200 mg/dL in a nonstressed, ambulatory subject supports the diagnosis of Diabetes Mellitus. Hematocrit Auto (Bld) [Volum e fraction]Ordered By: Romel Orta on 02-15-2025 Hematocrit (Bld) [Volume fraction] Hematocrit [Volume Fraction] of Blood by Automated count 38.8-50.0 [facility] Hemoglobin [Mass/volume] in BloodOrdered By: Romel Orta on 02-15-2025 Hemoglobin (Bld) [Mass/Vol] Hemoglobin [Mass/volume] in Blood 13.0-17.0 [facility] INR in Platelet poor plasma by Coagulation assayOrdered By: Romel Orta on 02-15-2025 INR Coag (PPP) [Relative time] INR in Platelet poor plasma by Coagulation assay [facility] Comment on above: INR Therapeutic [...] with mechanical heart valves: 3 - 4.5 Leukocytes [#/volume] correc nat for nucleated erythrocytes in Blood by Automated counOrdered By: Romel Orta on 02-15-2025 WBC corrected for nucl RBC Auto (Bld) [#/Vol] Leukocytes [#/volume] corrected for nucleated erythrocytes in Blood by Automated coun 4.1-10.5 [facility] Lymphocytes Auto (Bld) [#/Vo l]Ordered By: Romel Orta on 02-15-2025 Lymphocytes (Bld) [#/Vol] Lymphocytes [#/volume] in Blood by Automated count 1.00-4.8 [facility] Lymphocytes/100 WBC Auto (Bl d)Ordered By: Romel Orta on 02-15-2025 Lymphocytes/100 WBC (Bld) Lymphocytes/100 leukocytes in Blood by Automated count . [facility] MCH Auto (RBC) [Entitic mass ]Ordered By: Romel Orta on 02-15-2025 MCH (RBC) [Entitic mass] MCH [Entitic mass] by Automated count 27.5-35.2 [facility] MCHC Auto (RBC) [Mass/Vol]Or dered By: Romel Orta on 02-15-2025 MCHC (RBC) [Mass/Vol] MCHC [Mass/volume] by Automated count 32.5-35.6 [facility] MCV Auto (RBC) [Entitic vol] Ordered By: Romel Orta on 02-15-2025 MCV (RBC) [Entitic vol] MCV [Entitic volume] by Automated count 83.5-101 [facility] Monocyte distribution width [Entitic volume] in Blood by AutomatedOrdered By: Romel Orta on 02-15-2025 Monocyte distribution width Auto (Bld) [Entitic vol] Monocyte distribution width [Entitic volume] in Blood by Automated 0.00-20.00 [facility] Monocytes Auto (Bld) [#/Vol] Ordered By: Romel Orta on 02-15-2025 Monocytes (Bld) [#/Vol] Automated blood monocyte count High 0.0-0.8 [facility] Monocytes/100 WBC Auto (Bld) Ordered By: Romel Orta on 02-15-2025 Monocytes/100 WBC (Bld) Automated monocyte % . [facility] Natriuretic peptide B [Mass/ Vol]Ordered By: Romel Orta on 02-15-2025 Natriuretic peptide B (Bld) [Mass/Vol] BNP ser/plas 5-100 [facility] Neutrophils Auto (Bld) [#/Vo l]Ordered By: Romel Orta on 02-15-2025 Neutrophils (Bld) [#/Vol] Neutrophils [#/volume] in Blood by Automated count 1.8-7.7 [facility] Neutrophils/100 WBC Auto (Bl d)Ordered By: Romel Orta on 02-15-2025 Neutrophils/100 WBC (Bld) Automated neutrophil % . [facility] No Panel InformationOrdered By: Romel Orta on 02-15-2025 Estimated GFR (CKD-EPI) > 60.0 mL/Min [facility] Creatinine Clearance (Chem 96.68 [facility] Nucleated erythrocytes [Pres ence] in Blood by Automated countOrdered By: Romel Orta on 02-15-2025 Nucleated RBC Auto Ql (Bld) Nucleated erythrocytes [Presence] in Blood by Automated count 0-0.5 [facility] Platelet mean volume Auto (B ld) [Entitic vol]Ordered By: Romel Orta on 02-15-2025 Platelet mean volume (Bld) [Entitic vol] Platelet mean volume [Entitic volume] in Blood by Automated count 6.6-10.1 [facility] Platelets Auto (Bld) [#/Vol] Ordered By: Romel Orta on 02-15-2025 Platelets (Bld) [#/Vol] Platelets [#/volume] in Blood by Automated count 150-450 [facility] Potassium [Moles/volume] in Serum or PlasmaOrdered By: Romel Orta on 02-15-2025 Potassium [Moles/Vol] Potassium [Moles/v olume] in Serum or Plasma 3.5-5.1 [facility] Prothrombin Time INRon 02-15 INR Coag (PPP) [Relative time] 1.1 {INR} Normal [facility] Comment on above: Result Comment: INR Therapeutic [...] with mechanical heart valves: 3 - 4.5 PERFORMED BY: [facility] [address] [place] [address] PATHOLOGIST CREASING MACHINE OPERATOR MOHAMED M EL-FAKHARANY M.D. Performed By: #### E SR, DIFF CBC, ADDONUAPLUS, CMP #### [facility] [address] [place] [address] [place] #### CH50, C4, C3 #### [facility] , PT Coag (PPP) [Time] 12.0 s Normal 9.0-12.9 [facility] Comment on above: Result Comment: A he matocrit value greater than 55% may lead to inaccurate results in coagulation testing. Patients having hematocrit values >55% require a special collection tube for coagulation studies. Please contact the laboratory at [phone] for redraw instructions. Performed By: #### E SR, DIFF CBC, ADDONUAPLUS, CMP #### [facility] [address] [place] [address] [place] #### CH50, C4, C3 #### [facility] , Prothrombin time (PT)Ordered By: Romel Orta on 02-15-2025 PT Coag (PPP) [Time] Prothrombin time (PT) 9.0- 12.9 [facility] Comment on above: A hematocrit value g reater than 55% may lead to inaccurate results in coagulation testing. Patients having hematocrit values >55% require a special collection tube for coagulation studies. Please contact the laboratory at [phone] for redraw instructions. RBC Auto (Bld) [#/Vol]Ordere d By: Romel Orta on 02-15-2025 RBC (Bld) [#/Vol] Erythrocytes [#/volu me] in Blood by Automated count 3.90-5.60 [facility] Serum or plasma anion gap de terminationOrdered By: Romel Orta on 02-15-2025 Anion gap [Moles/Vol] Serum or plasma an ion gap determination 6.0-15.0 [facility] Sodium [Moles/volume] in Ser um or PlasmaOrdered By: Romel Orta on 02-15-2025 Sodium [Moles/Vol] Sodium [Moles/volume ] in Serum or Plasma 136-145 [facility] Troponin I High Sensitivityo n 02-15-2025 Troponin I High Sensitivity 10 Normal 0-20 [facility] Comment on above: Result Comment: The Troponin units of report have been changed to meet the Chest Pain Accreditation requirement, element EC5.M1l2. Troponin units are changed from pg/ml to ng/L. Also, the decimal is removed and results are in whole numbers. PERFORMED BY: [place] [address] PATHOLOGIST CREASING MACHINE OPERATOR HECTOR MEJIA M.D. Performed By: #### E SR, DIFF CBC, ADDONUAPLUS, CMP #### [facility] [address] [place] [address] #### CH50, C4, C3 #### [facility] , Troponin I High Sensitivity 8 Normal 0-20 [facility] Comment on above: Result Comment: The Troponin units of report have been changed to meet the Chest Pain Accreditation requirement, element EC5.M1l2. Troponin units are changed from pg/ml to ng/L. Also, the decimal is removed and results are in whole numbers. PERFORMED BY: [place] [address] PATHOLOGIST CREASING MACHINE OPERATOR HECTOR MEJIA M.D. Performed By: #### H S TROP #### [address] Troponin I.cardiac [Mass/vol ume] in Serum or Plasma by Detection limit <= 0.01 ng/Ordered By: Martha Gomes on 02-15-2025 Troponin I.cardiac DL <= 0.01 ng/mL [Mass/Vol] Troponin I.cardiac [Mass/volume] in Serum or Plasma by Detection limit <= 0.01 ng/ 0-20 [facility] Comment on above: The Troponin units o f report have been changed to meet the Chest Pain Accreditation requirement, element EC5.M1l2. Troponin units are changed from pg/ml to ng/L. Also, the decimal is removed and results are in whole numbers. Urea nitrogen [Mass/volume] in Serum or PlasmaOrdered By: Romel Orta on 02-15-2025 Urea nitrogen [Mass/Vol] Urea nitrogen [Mass/volume] in Serum or Plasma 06-14 [facility] WBC Auto (Bld) [#/Vol]Ordere d By: Romel Orta on 02-15-2025 WBC (Bld) [#/Vol] Leukocytes [#/volume ] in Blood by Automated count 4.1-10.5 [facility] X-ray reportOrdered By: Jorge Mayer on 02-15-2025 Study report [facility] [address] [place] [address] [place] [address] XRay Report Signed Patient: Valentin Torre MR#: [id number] : 1955 Acct:[id number] Age/Sex: 69 / M ADM Date: 5 Loc: ER Room: Type: [facility] ER Attending Dr: Copies to: MD Romel Ewing, ~ Ordering Provider: Romel Orta DO Date of Service: 02/15/25 XR/XR chest 1V portable: Chest Pain SINGLE VIEW CHEST CLINICAL HISTORY: Midsternal chest pain, short of breath COMPARISON: 09/19/2024 FINDINGS: Unremarkable cardiomediastinal silhouette. Lungs clear. No effusion XR/XR chest 1V portable IMPRESSION: NO ACUTE FINDINGS Impression dictated by: Alo Mayer M.D.02/15/2025 10:47 AM Dictation Location: [place] [address] Transcribed By: [facility] 02/15/25 1047 Dictated By: Alo Mayer MD 02/15/25 1043 Signed By: 02/15/25 1047 [facility] Work Phone: XR chest 1V portableon 02-15 XR chest 1V portable [facility] Main [address] [address] XRay Report Signed Patient: Valentin Torre MR#: [id number] 29 : 1955 Acct:[id number] Age/Sex: 69 / M ADM Date: 02/15/25 Loc: ER Room: Type: [facility] ER Attending Dr: Copies to: MD Romel Ewing DO Ordering Provider: Romel Orta DO Date of Service: 02/15/25 XR/XR chest 1V portable: Chest Pain SINGLE VIEW CHEST CLINICAL HISTORY: Midsternal chest pain, short of breath COMPARISON: 09/19/2024 FINDINGS: Unremarkable cardiomediastinal silhouette. Lungs clear. No effusion XR/XR chest 1V portable IMPRESSION: NO ACUTE FINDINGS Impression dictated by: Alo Mayer M.D.02/15/2025 10:47 AM Dictation Location: [facility]-23 Transcribed By: MARV 02/15/25 1047 Dictated By: Alo Mayer MD 02/15/25 1043 Signed By: 02/15/25 1047 Normal [facility] X-ray reportOrdered By: Isaura Alexandra on 01-25-2025 Study report [facility] [place] [address] XRay Report Signed Patient: Valentin Torre MR#: [id number] : 1955 Acct:[id number] Age/Sex: 69 / M ADM Date: 5 Loc: XD Room: Type: [facility] Attending Dr: Sascha Sutton DO Copies to: Sascha Sutton DO~ Ordering Provider: Sascha Sutton DO Date of Service: 01/25/25 XR/XR ankle RT min 3V*: S80.811D RIGHT ANKLE - 3 views CLINICAL DATA: Patient fell down stairs last month and has continued anterior distal lower leg pain COMPARISON: None AP, lateral and oblique views were obtained. There is no evidence of fractureor dislocation. The talar dome is intact. There is minor spurring at the dorsum of the tarsals. There is a large plantar calcaneal spur. There are no significant soft tissue abnormalities. XR/XR ankle RT min 3V* IMPRESSION: NO ACUTE BONY INJURY. Impression dictated by: Christine Alexandra M.D.01/25/2025 10:48 PM Dictation Location: [facility]-02 Transcribed By: [facility] 01/25/252247 Dictated By: Christine Alexandra MD 01/25/252243 Signed By: 01/25/252247 [facility] Work Phone: XR ankle RT min 3V*on 2024 XR ankle RT min 3V* [facility] [address] [place] [address] [place] [address] XRay Report Signed Patient: Valentin Torre MR#: [id number] 29 : 1955 Acct:[id number] Age/Sex: 69 / M ADM Date: 01/25/25 Loc: XD Room: Type: [facility] Attending Dr: Sascha Sutton DO Copies to: Sascha Sutton DO Ordering Provider: Sascha Sutton DO Date of Service: 01/25/25 XR/XR ankle [...] Christine Alexandra M.D.01/25/2025 10:48 PM Dictation Location: [facility]- Transcribed By: [facility] 01/25/252247 Dictated By: Christine Alexandra MD 01/25/252243 Signed By: 01/25/252247 Normal [facility] Alanine aminotransferase [En zymatic activity/volume] in Serum or PlasmaOrdered By: Romel Davis on 01-14-2025 ALT [Catalytic activity/Vol] Alanine aminotransferase [Enzymatic activity/volume] in Serum or Plasma [facility] Albumin [Mass/volume] in Ser um or Plasma by Bromocresol green (BCG) dye binding methoOrdered By: Romel Davis on 01-14-2025 Albumin BCG dye [Mass/Vol] Albumin [Mass/volume] in Serum or Plasma by Bromocresol green (BCG) dye binding metho 3.5-5.7 [facility] Alkaline phosphatase [Enzyma tic activity/volume] in Serum or PlasmaOrdered By: Romel Davis on 01-14-2025 ALP [Catalytic activity/Vol] Alkaline phosphatase [Enzymatic activity/volume] in Serum or Plasma 34-104 [facility] Appearance of UrineOrdered B y: Romel Davis on 01-14-2025 Appearance (U) Urine appearance [facility] Aspartate aminotransferase [ Enzymatic activity/volume] in Serum or PlasmaOrdered By: Romel Davis on 01-14-2025 AST [Catalytic activity/Vol] Aspartate aminotransferase [Enzymatic activity/volume] in Serum or Plasma 13-39 [facility] Bacteria [Presence] in Urine by AutomatedOrdered By: Romel Davis on 01-14-2025 Bacteria Auto Ql (U) Bacteria [Presence] in Urine by Automated None Seen [facility] Basophils Auto (Bld) [#/Vol] Ordered By: Romel Davis on 01-14-2025 Basophils (Bld) [#/Vol] Automated basophil count 0.0-0.2 [facility] Basophils/100 WBC Auto (Bld) Ordered By: Romel Davis on 01-14-2025 Basophils/100 WBC (Bld) Automated basophil % . [facility] Bilirubin Test strip Ql (U)O rdered By: Romel Davis on 01-14-2025 Bilirubin Ql (U) Bilirubin.total [Pre sence] in Urine by Test strip Negative [facility] Bilirubin.total [Mass/volume ] in Serum or PlasmaOrdered By: Romel Davis on 01-14-2025 Bilirubin [Mass/Vol] Bilirubin.total [Mass/volume] in Serum or Plasma 0.3-1.0 [facility] Calcium [Mass/volume] in Ser um or PlasmaOrdered By: Romel Davis on 01-14-2025 Calcium [Mass/Vol] Calcium [Mass/volume ] in Serum or Plasma 8.6-10.3 [facility] Carbon dioxide, total [Moles /volume] in Serum or PlasmaOrdered By: Romel Davis on 01-14-2025 CO2 [Moles/Vol] Carbon dioxide, tota l [Moles/volume] in Serum or Plasma 21.0-31.0 [facility] Chloride [Moles/volume] in S ace or PlasmaOrdered By: Romel Davis on 01-14-2025 Chloride [Moles/Vol] Chloride [Moles/vol ume] in Serum or Plasma 98-107 [facility] Color Auto (U)Ordered By: Bridgett Davis on 01-14-2025 Color (U) Color of Urine by Auto Yellow [facility] Complement C3on 01-14-2025 Complement C3 129 mg/dL Normal 82-167 [facility] Comment on above: Result Comment: Perf ormed at: - [facility] [address] [id number] Mobile Lounge Driver Or Operator: Richy Ardon PhD, Phone: [phone] Performed By: #### E SR, DIFF CBC, ADDONUAPLUS, CMP #### [facility] [address] [place] [address] #### CH50, C4, C3 #### [facility] , Complement C4on 01-14-2025 Complement C4 15 mg/dL Normal 12-38 [facility] Comment on above: Result Comment: PERF ORMED BY: [place] [address] PATHOLOGIST CREASING MACHINE OPERATOR HECTOR MEJIA M.D. Performed By: #### E SR, DIFF CBC, ADDONUAPLUS, CMP #### [facility] [address] [place] [address] [place] #### CH50, C4, C3 #### [facility] , Complement Total (CH50)on Complement Total (CH50) 57 Normal >41 [facility] Comment on above: Result Comment: [...] determine out of range values. Performed at: [facility] [address] [id number] Mobile Lounge Driver Or Operator: Richy Ardon PhD, Phone: [phone] PERFORMED BY: [place] [address] PATHOLOGIST CREASING MACHINE OPERATOR HECTOR MEJIA M.D. Performed By: #### E SR, DIFF CBC, ADDONUAPLUS, CMP #### [address] #### CH50, C4, C3 #### [facility] , Comprehensive Metabolic Pane vivek 01-14-2025 Albumin [Mass/Vol] 3.9 g/dL Normal 3.5-5.7 [facility] Comment on above: Performed By: #### E SR, DIFF CBC, ADDONUAPLUS, CMP #### [place] [address] [place] #### CH50, C4, C3 #### [facility] , Albumin/Globulin [Mass ratio] 1.9 {ratio} Normal [facility] Comment on above: Performed By: #### E SR, DIFF CBC, ADDONUAPLUS, CMP #### [place] [address] [place] #### CH50, C4, C3 #### [facility] , ALP [Catalytic activity/Vol] 81 U/L Normal 34-104 [facility] Comment on above: Result Comment: PERF ORMED BY: [place] [address] PATHOLOGIST CREASING MACHINE OPERATOR HECTOR MEJIA M.D. Performed By: #### E SR, DIFF CBC, ADDONUAPLUS, CMP #### [place] [address] [place] #### CH50, C4, C3 #### [facility] , ALT [Catalytic activity/Vol] 39 U/L Normal 7-52 [facility] Comment on above: Performed By: #### E SR, DIFF CBC, ADDONUAPLUS, CMP #### [address] #### CH50, C4, C3 #### [facility] , Anion gap [Moles/Vol] 10.8 mmol/L Normal 6.0-15.0 [facility] Phys[facility] Comment on above: Performed By: #### E SR, DIFF CBC, ADDONUAPLUS, CMP #### [facility] [address] [place] [address] [place] #### CH50, C4, C3 #### [facility] , AST [Catalytic activity/Vol] 23 U/L Normal 13-39 [facility] Comment on above: Performed By: #### E SR, DIFF CBC, ADDONUAPLUS, CMP #### [place] [address] [place] #### CH50, C4, C3 #### [facility] , Bilirubin [Mass/Vol] 0.6 mg/dL Normal 0.3-1.0 [facility] Comment on above: Performed By: #### E SR, DIFF CBC, ADDONUAPLUS, CMP #### [facility] [address] [place] [address] [place] #### CH50, C4, C3 #### [facility] , Calcium [Mass/Vol] 9.1 mg/dL Normal 8.6-10.3 [facility] Comment on above: Performed By: #### E SR, DIFF CBC, ADDONUAPLUS, CMP #### [facility] [address] [place] [address] [place] #### CH50, C4, C3 #### [facility] , Chloride [Moles/Vol] 106 mmol/L Normal 98-107 [facility] Comment on above: Performed By: #### E SR, DIFF CBC, ADDONUAPLUS, CMP #### [place] [address] [place] #### CH50, C4, C3 #### [facility] , CO2 [Moles/Vol] 26.4 mmol/L Normal 21.0-31.0 [facility] Comment on above: Performed By: #### E SR, DIFF CBC, ADDONUAPLUS, CMP #### [place] [address] [place] #### CH50, C4, C3 #### [facility] , Creatinine [Mass/Vol] 0.81 mg/dL Normal 0.70-1.30 [facility] Comment on above: Performed By: #### E SR, DIFF CBC, ADDONUAPLUS, CMP #### [place] [address] [place] #### CH50, C4, C3 #### [facility] , GFR/1.73 sq M.predicted MDRD (S/P/Bld) [Vol rate/Area] mL/min/{1.73_m2} Normal [facility] Comment on above: Performed By: #### E SR, DIFF CBC, ADDONUAPLUS, CMP #### [place] [address] [place] #### CH50, C4, C3 #### [facility] , Globulin (S) [Mass/Vol] 2.1 g/dL Normal [facility] Comment on above: Performed By: #### E SR, DIFF CBC, ADDONUAPLUS, CMP #### [place] [address] [place] #### CH50, C4, C3 #### [facility] , Glucose [Mass/Vol] 121 mg/dL High 70-100 [facility] Comment on above: Result Comment: [place] Glucose Reference Range is dependent on time and content of last meal. Glucose of more than 200 mg/dL in a nonstressed, ambulatory subject supports the diagnosis of Diabetes Mellitus. ADA recommended reference range Performed By: #### E SR, DIFF CBC, ADDONUAPLUS, CMP #### [place] [address] [place] #### CH50, C4, C3 #### [facility] , Potassium [Moles/Vol] 4.2 mmol/L Normal 3.5-5.1 [facility] Comment on above: Performed By: #### E SR, DIFF CBC, ADDONUAPLUS, CMP #### [place] [address] [place] #### CH50, C4, C3 #### [facility] , Protein [Mass/Vol] 6.0 g/dL Low 6.4-8.9 [facility] Comment on above: Performed By: #### E SR, DIFF CBC, ADDONUAPLUS, CMP #### [place] [address] [place] #### CH50, C4, C3 #### [facility] , Sodium [Moles/Vol] 139 mmol/L Normal 136-145 [facility] Comment on above: Performed By: #### E SR, DIFF CBC, ADDONUAPLUS, CMP #### [address] #### CH50, C4, C3 #### [facility] , Urea nitrogen [Mass/Vol] 19 mg/dL Normal 7-25 [facility] Comment on above: Performed By: #### E SR, DIFF CBC, ADDONUAPLUS, CMP #### [place] [address] [place] #### CH50, C4, C3 #### [facility] , Creatinine [Mass/volume] in Serum or PlasmaOrdered By: Romel Davis on 01-14-2025 Creatinine [Mass/Vol] Creatinine [Mass/v olume] in Serum or Plasma 0.70-1.30 [facility] Dipstick and Microscopicon 0 01-14-2025 Appearance (U) Clear Normal Clear [facility] Comment on above: Order Comment: Name Collection Type:: Clean-Voided Midstream Performed By: #### E SR, DIFF CBC, ADDONUAPLUS, CMP #### [address] #### CH50, C4, C3 #### [facility] , Bacteria,Urine None Seen Normal None Seen [facility] Comment on above: Order Comment: Name Collection Type:: Clean-Voided Midstream Performed By: #### E SR, DIFF CBC, ADDONUAPLUS, CMP #### [address] #### CH50, C4, C3 #### [facility] , Bilirubin,Urine Negative Normal Negative [facility] Comment on above: Order Comment: Name Collection Type:: Clean-Voided Midstream Performed By: #### E SR, DIFF CBC, ADDONUAPLUS, CMP #### [address] #### CH50, C4, C3 #### [facility] , Color (U) Yellow Normal Yellow [facility] Comment on above: Order Comment: Name Collection Type:: Clean-Voided Midstream Performed By: #### E SR, DIFF CBC, ADDONUAPLUS, CMP #### [facility] [address] [place] [address] #### CH50, C4, C3 #### [facility] , Glucose Ql (U) Normal Normal Normal [facility] Comment on above: Order Comment: Name Collection Type:: Clean-Voided Midstream Performed By: #### E SR, DIFF CBC, ADDONUAPLUS, CMP #### [address] #### CH50, C4, C3 #### [facility] , Hyaline Casts,Urine None Normal 0-8 [facility] Comment on above: Order Comment: Name Collection Type:: Clean-Voided Midstream Performed By: #### E SR, DIFF CBC, ADDONUAPLUS, CMP #### [address] #### CH50, C4, C3 #### [facility] , Ketones Ql (U) Negative Normal Negative [facility] Comment on above: Order Comment: Name Collection Type:: Clean-Voided Midstream Performed By: #### E SR, DIFF CBC, ADDONUAPLUS, CMP #### [address] #### CH50, C4, C3 #### [facility] , Leukocyte esterase Test strip Ql (U) Negative Normal Negative [facility] Comment on above: Order Comment: Name Collection Type:: Clean-Voided Midstream Performed By: #### E SR, DIFF CBC, ADDONUAPLUS, CMP #### [address] #### CH50, C4, C3 #### [facility] , Mucus,Urine Rare Normal [facility] Comment on above: Order Comment: Name Collection Type:: Clean-Voided Midstream Result Comment: PERF ORMED BY: [place] [address] PATHOLOGIST CREASING MACHINE OPERATOR HECTOR MEJIA M.D. Performed By: #### E SR, DIFF CBC, ADDONUAPLUS, CMP #### [address] #### CH50, C4, C3 #### [facility] , Nitrite,Urine Negative Normal Negative [facility] Comment on above: Order Comment: Name Collection Type:: Clean-Voided Midstream Performed By: #### E SR, DIFF CBC, ADDONUAPLUS, CMP #### [address] #### CH50, C4, C3 #### [facility] , Occult Blood,Urine Negative Normal Negative [facility] Comment on above: Order Comment: Name Collection Type:: Clean-Voided Midstream Performed By: #### E SR, DIFF CBC, ADDONUAPLUS, CMP #### [address] #### CH50, C4, C3 #### [facility] , pH (U) 7.5 [pH] Normal 5.0-9.0 [facility] Comment on above: Order Comment: Name Collection Type:: Clean-Voided Midstream Performed By: #### E SR, DIFF CBC, ADDONUAPLUS, CMP #### [address] #### CH50, C4, C3 #### [facility] , Protein (U) [Mass/Vol] 30 mg/dL High Negative Th [facility] Comment on above: Order Comment: Name Collection Type:: Clean-Voided Midstream Performed By: #### E SR, DIFF CBC, ADDONUAPLUS, CMP #### [address] #### CH50, C4, C3 #### [facility] , RBC,Urine 1-2 Normal 0-4 [facility] Comment on above: Order Comment: Name Collection Type:: Clean-Voided Midstream Performed By: #### E SR, DIFF CBC, ADDONUAPLUS, CMP #### [address] #### CH50, C4, C3 #### [facility] , Specificy [place],Urine 1.029 Normal 1.001-1.03 0 [facility] Comment on above: Order Comment: Name Collection Type:: Clean-Voided Midstream Performed By: #### E SR, DIFF CBC, ADDONUAPLUS, CMP #### [address] #### CH50, C4, C3 #### [facility] , Urobilinogen,Urine Normal Normal Normal [facility] Comment on above: Order Comment: Name Collection Type:: Clean-Voided Midstream Performed By: #### E SR, DIFF CBC, ADDONUAPLUS, CMP #### [address] #### CH50, C4, C3 #### [facility] , WBC,Urine 1-2 Normal 0-4 [facility] Comment on above: Order Comment: Name Collection Type:: Clean-Voided Midstream Performed By: #### E SR, DIFF CBC, ADDONUAPLUS, CMP #### [facility] [address] [place] [address] #### CH50, C4, C3 #### [facility] , Eosinophils Auto (Bld) [#/Vo l]Ordered By: Romel Davis on 01-14-2025 Eosinophils (Bld) [#/Vol] Automated eosinophil count 0.0-0.45 [facility] Eosinophils/100 WBC Auto (Bl d)Ordered By: Romel Davis on 01-14-2025 Eosinophils/100 WBC (Bld) Automated eosinophil % . [facility] Epithelial cells.squamous [# /area] in Urine sediment by Automated countOrdered By: Romel Davis on 01-14-2025 Epithelial cells.squamous Auto (Urine sed) [#/Area] Epithelial cells.squamous [#/area] in Urine sediment by Automated count [facility] Erythrocyte Sedimentation Ra bruno 01-14-2025 ESR (Bld) [Velocity] 6 mm/h Normal 0-19 [facility] Comment on above: Result Comment: PERF ORMED BY: [place] [address] PATHOLOGIST CREASING MACHINE OPERATOR HECTOR MEJIA M.D. Performed By: #### E SR, DIFF CBC, ADDONUAPLUS, CMP #### [place] [address] [place] #### CH50, C4, C3 #### [facility] , Erythrocyte distribution wid th Auto (RBC) [Ratio]Ordered By: Romel Davis on 01-14-2025 Erythrocyte distribution width (RBC) [Ratio] Erythrocyte distribution width [Ratio] by Automated count High 12.0-14.8 [facility] Erythrocyte morphology findi ng [Identifier] in BloodOrdered By: Romel Davis on 01-14-2025 RBC morphology finding Nom (Bld) RBC morphology Normal [facility] Erythrocyte sedimentation ra te by Photometric methodOrdered By: Romel Daivs on 01-14-2025 ESR Photometric method (Bld) [Velocity] Erythrocyte sedimentation rate by Photometric method 0-19 [facility] Erythrocytes [#/area] in Uri ne sediment by Automated countOrdered By: Romel Davis on 01-14-2025 RBC Auto (Urine sed) [#/Area] Erythrocytes [#/area] in Urine sediment by Automated count 0-4 [facility] Globulin Calc (S) [Mass/Vol] Ordered By: Romel Davis on 01-14-2025 Globulin (S) [Mass/Vol] Serum globulin measurement by calculation (mass/volume) [facility] Glucose [Mass/volume] in Ser um or PlasmaOrdered By: Romel Davis 01-14-2025 Glucose [Mass/Vol] Glucose [Mass/volume ] in Serum or Plasma High 70-100 [facility] Comment on above: ADA recommended refe rence rangeRandom Glucose Reference Range is dependent on time and content of last meal. Glucose of more than 200 mg/dL in a nonstressed, ambulatory subject supports the diagnosis of Diabetes Mellitus. Glucose [Mass/volume] in Uri ne by Test stripOrdered By: Romel Davis on 01-14-2025 Glucose Test strip (U) [Mass/Vol] Glucose [Mass/volume] in Urine by Test strip Normal [facility] Hematocrit Auto (Bld) [Volum e fraction]Ordered By: Romel Davis 01-14-2025 Hematocrit (Bld) [Volume fraction] Hematocrit [Volume Fraction] of Blood by Automated count 38.8-50.0 [facility] Hemoglobin Test strip Ql (U) Ordered By: Romel Davis 01-14-2025 Hemoglobin Ql (U) Hemoglobin [Presence ] in Urine by Test strip Negative [facility] Hemoglobin [Mass/volume] in BloodOrdered By: Romel Davis on 01-14-2025 Hemoglobin (Bld) [Mass/Vol] Hemoglobin [Mass/volume] in Blood 13.0-17.0 [facility] Hyaline casts [#/area] in Ur ine sediment by Automated countOrdered By: Romel Davis on 01-14-2025 Hyaline casts Auto (Urine sed) [#/Area] Hyaline casts [#/area] in Urine sediment by Automated count 0-8 [facility] Ketones Test strip Ql (U)Ord ered By: Romel Davis on 01-14-2025 Ketones Ql (U) Ketones [Presence] i n Urine by Test strip Negative [facility] Leukocyte esterase [Presence ] in Urine by Test stripOrdered By: Romel Davis on 01-14-2025 Leukocyte esterase Test strip Ql (U) Leukocyte esterase [Presence] in Urine by Test strip Negative [facility] Leukocytes [#/area] in Urine sediment by Automated countOrdered By: Romel Davis on 01-14-2025 WBC Auto (Urine sed) [#/Area] Leukocytes [#/area] in Urine sediment by Automated count 0-4 [facility] Leukocytes [#/volume] correc nat for nucleated erythrocytes in Blood by Automated counOrdered By: Romel Davis on 01-14-2025 WBC corrected for nucl RBC Auto (Bld) [#/Vol] Leukocytes [#/volume] corrected for nucleated erythrocytes in Blood by Automated coun 4.1-10.5 [facility] Lymphocytes Auto (Bld) [#/Vo l]Ordered By: Romel Davis on 01-14-2025 Lymphocytes (Bld) [#/Vol] Lymphocytes [#/volume] in Blood by Automated count Low 1.00-4.8 [facility] Lymphocytes/100 WBC Auto (Bl d)Ordered By: Romel Davis on 01-14-2025 Lymphocytes/100 WBC (Bld) Lymphocytes/100 leukocytes in Blood by Automated count . [facility] MCH Auto (RBC) [Entitic mass ]Ordered By: Romel Davis on 01-14-2025 MCH (RBC) [Entitic mass] MCH [Entitic mass] by Automated count 27.5-35.2 [facility] MCHC Auto (RBC) [Mass/Vol]Or dered By: Romel Davis on 01-14-2025 MCHC (RBC) [Mass/Vol] MCHC [Mass/volume] by Automated count 32.5-35.6 [facility] MCV Auto (RBC) [Entitic vol] Ordered By: Romel Davis on 01-14-2025 MCV (RBC) [Entitic vol] MCV [Entitic volume] by Automated count 83.5-101 [facility] Monocytes Auto (Bld) [#/Vol] Ordered By: Romel Davis on 01-14-2025 Monocytes (Bld) [#/Vol] Automated blood monocyte count 0.0-0.8 [facility] Monocytes/100 WBC Auto (Bld) Ordered By: Romel Davis on 01-14-2025 Monocytes/100 WBC (Bld) Automated monocyte % . [facility] Mucus [Presence] in Urine by AutomatedOrdered By: Romel Davis on 01-14-2025 Mucus Auto Ql (U) Mucus [Presence] in Urine by Automated [facility] Neutrophils Auto (Bld) [#/Vo l]Ordered By: Romel Davis on 01-14-2025 Neutrophils (Bld) [#/Vol] Neutrophils [#/volume] in Blood by Automated count 1.8-7.7 [facility] Neutrophils/100 WBC Auto (Bl d)Ordered By: Romel Davis on 01-14-2025 Neutrophils/100 WBC (Bld) Automated neutrophil % . [facility] Nitrite Test strip Ql (U)Ord ered By: Romel Davis on 01-14-2025 Nitrite Ql (U) Nitrite [Presence] i n Urine by Test strip Negative [facility] No Panel InformationOrdered By: Romel Davis on 01-14-2025 Estimated GFR (CKD-EPI) > 60.0 mL/Min [facility] Creatinine Clearance (Chem N/A [facility] Nucleated erythrocytes [Pres ence] in Blood by Automated countOrdered By: Romel Davis on 01-14-2025 Nucleated RBC Auto Ql (Bld) Nucleated erythrocytes [Presence] in Blood by Automated count 0-0.5 [facility] Platelet adequacy [Presence] in Blood by Light microscopyOrdered By: Romel Davis on 01-14-2025 Platelets LM Ql (Bld) Platelet adequacy [Presence] in Blood by Light microscopy Normal [facility] Platelet mean volume Auto (B ld) [Entitic vol]Ordered By: Romel Davis on 01-14-2025 Platelet mean volume (Bld) [Entitic vol] Platelet mean volume [Entitic volume] in Blood by Automated count 6.6-10.1 [facility] Platelet morphology finding [Identifier] in BloodOrdered By: Romel Davis on 01-14-2025 Platelet morphology finding Nom (Bld) Platelet morphology finding [Identifier] in Blood Normal [facility] Platelets Auto (Bld) [#/Vol] Ordered By: Romel Davis on 01-14-2025 Platelets (Bld) [#/Vol] Platelets [#/volume] in Blood by Automated count 150-450 [facility] Potassium [Moles/volume] in Serum or PlasmaOrdered By: Romel Daivs on 01-14-2025 Potassium [Moles/Vol] Potassium [Moles/v olume] in Serum or Plasma 3.5-5.1 [facility] Protein Test strip (U) [Mass /Vol]Ordered By: Romel Davis on 01-14-2025 Protein (U) [Mass/Vol] Protein [Mass/vol ume] in Urine by Test strip High Negative [facility] Protein [Mass/volume] in Ser um or PlasmaOrdered By: Romel Davis on 01-14-2025 Protein [Mass/Vol] Protein [Mass/volume ] in Serum or Plasma Low 6.4-8.9 [facility] RBC Auto (Bld) [#/Vol]Ordere d By: Romel Davis on 01-14-2025 RBC (Bld) [#/Vol] Erythrocytes [#/volu me] in Blood by Automated count 3.90-5.60 [facility] Scan and CBCon 01-14-2025 Basophils (Bld) [#/Vol] 0.0 10*3/uL Normal 0.0-0.2 [facility] Comment on above: Performed By: #### E SR, DIFF CBC, ADDONUAPLUS, CMP #### [place] [address] [place] #### CH50, C4, C3 #### [facility] , Basophils/100 WBC (Bld) 0.5 % Normal . [facility] Comment on above: Performed By: #### E SR, DIFF CBC, ADDONUAPLUS, CMP #### [place] [address] [place] #### CH50, C4, C3 #### [facility] , Eosinophils (Bld) [#/Vol] 0.1 10*3/uL Normal 0.0-0.45 [facility] Comment on above: Performed By: #### E SR, DIFF CBC, ADDONUAPLUS, CMP #### [place] [address] [place] #### CH50, C4, C3 #### [facility] , Eosinophils/100 WBC (Bld) 1.2 % Normal . [facility] Comment on above: Performed By: #### E SR, DIFF CBC, ADDONUAPLUS, CMP #### [address] #### CH50, C4, C3 #### [facility] , Erythrocyte distribution width (RBC) [Ratio] 15.0 % High 12.0-14.8 [facility] Comment on above: Performed By: #### E SR, DIFF CBC, ADDONUAPLUS, CMP #### [place] [address] [place] #### CH50, C4, C3 #### [facility] , Hematocrit (Bld) [Volume fraction] 44.3 % Normal 38.8-50.0 [facility] Comment on above: Performed By: #### E SR, DIFF CBC, ADDONUAPLUS, CMP #### [place] [address] [place] #### CH50, C4, C3 #### [facility] , Hemoglobin (Bld) [Mass/Vol] 15.3 g/dL Normal 13.0-17.0 [facility] Comment on above: Performed By: #### E SR, DIFF CBC, ADDONUAPLUS, CMP #### [place] [address] [place] #### CH50, C4, C3 #### [facility] , Lymphocytes (Bld) [#/Vol] 0.8 10*3/uL Low 1.00-4.8 [facility] Comment on above: Performed By: #### E SR, DIFF CBC, ADDONUAPLUS, CMP #### [address] #### CH50, C4, C3 #### [facility] , Lymphocytes/100 WBC (Bld) 17.5 % Normal . [facility] Comment on above: Performed By: #### E SR, DIFF CBC, ADDONUAPLUS, CMP #### [place] [address] [place] #### CH50, C4, C3 #### [facility] , MCH (RBC) [Entitic mass] 31.1 pg Normal 27.5-35.2 [facility] Comment on above: Performed By: #### E SR, DIFF CBC, ADDONUAPLUS, CMP #### [place] [address] [place] #### CH50, C4, C3 #### [facility] , MCV (RBC) [Entitic vol] 90.0 fL Normal 83.5-101 [facility] Comment on above: Performed By: #### E SR, DIFF CBC, ADDONUAPLUS, CMP #### [place] [address] [place] #### CH50, C4, C3 #### [facility] , Mean Corpuscular HGB Conc 34.5 g/dL Normal 32.5-35.6 [facility] Comment on above: Performed By: #### E SR, DIFF CBC, ADDONUAPLUS, CMP #### [place] [address] [place] #### CH50, C4, C3 #### [facility] , Monocytes (Bld) [#/Vol] 0.4 10*3/uL Normal 0.0-0.8 [facility] Comment on above: Performed By: #### E SR, DIFF CBC, ADDONUAPLUS, CMP #### [place] [address] [place] #### CH50, C4, C3 #### [facility] , Monocytes/100 WBC (Bld) 8.1 % Normal . [facility] Comment on above: Performed By: #### E SR, DIFF CBC, ADDONUAPLUS, CMP #### [place] [address] [place] #### CH50, C4, C3 #### [facility] , Neutrophils (Bld) [#/Vol] 3.2 10*3/uL Normal 1.8-7.7 [facility] Comment on above: Performed By: #### E SR, DIFF CBC, ADDONUAPLUS, CMP #### [place] [address] [place] #### CH50, C4, C3 #### [facility] , Neutrophils/100 WBC (Bld) 72.7 % Normal . [facility] Comment on above: Performed By: #### E SR, DIFF CBC, ADDONUAPLUS, CMP #### [place] [address] [place] #### CH50, C4, C3 #### [facility] , NRBC% 0.1 /100{WBC} Normal 0-0.5 [facility] Comment on above: Performed By: #### E SR, DIFF CBC, ADDONUAPLUS, CMP #### [address] #### CH50, C4, C3 #### [facility] , Platelet Estimate Normal Normal Normal [facility] Comment on above: Performed By: #### E SR, DIFF CBC, ADDONUAPLUS, CMP #### [address] #### CH50, C4, C3 #### [facility] , Platelet mean volume (Bld) [Entitic vol] 8.0 fL Normal 6.6-10.1 [facility] Comment on above: Performed By: #### E SR, DIFF CBC, ADDONUAPLUS, CMP #### [address] #### CH50, C4, C3 #### [facility] , Platelet Morphology Normal Normal Normal [facility] Comment on above: Performed By: #### E SR, DIFF CBC, ADDONUAPLUS, CMP #### [address] #### CH50, C4, C3 #### [facility] , Platelets (Bld) [#/Vol] 177 10*3/uL Normal 150-450 [facility] Comment on above: Performed By: #### E SR, DIFF CBC, ADDONUAPLUS, CMP #### [place] [address] [place] #### CH50, C4, C3 #### [facility] , RBC (Bld) [#/Vol] 4.92 10*6/uL Normal 3.90-5.60 [facility] Comment on above: Performed By: #### E SR, DIFF CBC, ADDONUAPLUS, CMP #### [place] [address] [place] #### CH50, C4, C3 #### [facility] , RBC morphology finding Nom (Bld) Normal Normal Normal [facility] Comment on above: Performed By: #### E SR, DIFF CBC, ADDONUAPLUS, CMP #### [facility] [address] [place] [address] [place] #### CH50, C4, C3 #### [facility] , WBC (Bld) [#/Vol] 4.4 10*3/uL Normal 4.1-10.5 [facility] Comment on above: Performed By: #### E SR, DIFF CBC, ADDONUAPLUS, CMP #### [facility] [address] [place] [address] [place] #### CH50, C4, C3 #### [facility] , Serum or plasma albumin/glob ulin mass ratioOrdered By: Romel Davis on 01-14-2025 Albumin/Globulin [Mass ratio] Serum or plasma albumin/globulin mass ratio [facility] Serum or plasma anion gap de terminationOrdered By: Romel Davis on 01-14-2025 Anion gap [Moles/Vol] Serum or plasma an ion gap determination 6.0-15.0 [facility] Serum or plasma complement C 3 measurement (mass/volume)Ordered By: Romel Davis on 01-14-2025 Complement C3 [Mass/Vol] Serum or plasma complement C3 measurement (mass/volume) 82-167 [facility] Comment on above: Performed at: [address] [id number] Director: Richy Ardon PhD, Phone: [phone] Serum or plasma complement C 4 measurement (mass/volume)Ordered By: Romel Davis on 01-14-2025 Complement C4 [Mass/Vol] Serum or plasma complement C4 measurement (mass/volume) 12-38 [facility] Sodium [Moles/volume] in Ser um or PlasmaOrdered By: Romel Davis on 01-14-2025 Sodium [Moles/Vol] Sodium [Moles/volume ] in Serum or Plasma 136-145 [facility] Specific gravity Test strip (U) [Rel density]Ordered By: Romel Davis on 01-14-2025 Specific gravity (U) [Rel density] Specific gravity of Urine by Test strip 1.001-1.03 0 [facility] Total hemolytic complement C H50 assayOrdered By: Romel Davis on 01-14-2025 Total Complement (CH50) 57 U/mL >41 [facility] Comment on above: Age Male [...] to determine out of range values.Performed at: [place] [id number] Director: Richy Ardon PhD, Phone: [phone] Urea nitrogen [Mass/volume] in Serum or PlasmaOrdered By: Romel Davis on 01-14-2025 Urea nitrogen [Mass/Vol] Urea nitrogen [Mass/volume] in Serum or Plasma 06-14 [facility] Urobilinogen Test strip (U) [Mass/Vol]Ordered By: Romel Davis on 01-14-2025 Urobilinogen (U) [Mass/Vol] Urobilinogen [Mass/volume] in Urine by Test strip Normal [facility] WBC Auto (Bld) [#/Vol]Ordere d By: Romel Davis on 01-14-2025 WBC (Bld) [#/Vol] Leukocytes [#/volume ] in Blood by Automated count 4.1-10.5 [facility] pH Test strip (U)Ordered By: Romel Davis on 01-14-2025 pH (U) pH of Urine by Test strip 5.0-9.0 [facility] CT head/brain wo bayon 01-12 CT head/brain wo con [facility] [place] [address] CT Scan Report Signed Patient: Valentin Torre MR#: [id number] 29 : 1955 Acct:[id number] Age/Sex: 69 / M ADM Date: 01/12/25 Loc: ER Room: Type: [facility] ER Attending Dr: Copies to: Matthew Harrell PA-C Ordering Provider: Matthew Harrell PA-C Date of Service: 01/12/25 CT/CT head/brain wo con: r/o head bleed CT BRAIN WITHOUT CONTRAST: CLINICAL HISTORY: Fall down steps COMPARISON: None TECHNIQUE: Contiguous axial unenhanced images were obtained through the brain. This CT exam was performed using one or more following dose reduction techniques: Automated exposure control, adjustment of the mA and/or kV according to patient size, or use of iterative reconstruction technique. FINDINGS: There is no evidence of midline shift, intra or extra-axial fluid collection, hemorrhage or CT evidence of large vascular distribution stroke. Mild central involutional changes. Mild chronic small vessel ischemic disease. Vascular calculation. Visualized intraorbital contents appear unremarkable. Moderate ethmoid sinus mucosal thickening. Frontal sinus air-fluid levels can be seen with acute bacterial sinusitis. Underpneumatized mastoids. The surrounding soft tissues are normal. CT/CT head/brain wo con IMPRESSION: NO ACUTE INTRACRANIAL ABNORMALITY. CHRONIC SMALL VESSEL CHANGES [id number] PARANASAL SINUS DISEASE Impression dictated by: Alo Myaer M.D.01/12/2025 2:28 PM Dictation Location: [place] [address] Transcribed By: [facility] 01/12/25 1428 Dictated By: Alo Mayer MD 01/12/251425 Signed By: 01/12/25 1428 Normal [facility] CT lumbar spine wo conon CT lumbar spine wo con [facility] [place] [address] CT Scan Report Signed Patient: Valentin Torre MR#: [id number] [birth year] : 1955 Acct:[id number] Age/Sex: 69 / M ADM Date: 01/12/25 Loc: ER Room: Type: [facility] ER Attending Dr: Copies to: Matthew Harrell PA-C Ordering Provider: Matthew Harrell PA-C Date of Service: 01/12/25 CT/CT lumbar spine wo con: r/o fx. fall CT lumbar spine wo con 01/12/2025 1:11 PM History:Fell down steps TECHNIQUE: Multi detector CT axial slices of the lumbar spine were obtained without IV contrast. Volumetric acquisition sagittal, coronal, and 3-D reconstructions were performed and reviewed on a separate workstation. CT was performed with one or more of the following dose reduction techniques: Automated exposure control, adjustment of the mA and/or kV according to patient size, or use of iterative reconstruction technique. COMPARISON: MRI 01/10/2024 FINDINGS: L5-S1: Mild disc disease. Lzwv-hc-yuvvexqw neural from narrowing. Advanced facet arthropathy. Laminectomy. L4-5 Postsurgical changes L4-5 status post the decompressive laminectomy and posterior fusion and discectomy. Stable 5 mm of anterolisthesis. Gsvq-id-kpoqnxgv foraminal narrowing at this level. L3-4 Moderate severe Junction degenerative changes L3-4 with severe central canal stenosis due to the disc disease and posterior, hypertrophic changes. There is moderate severe neural from narrowing at this level. At L2-3: Severe disc space disease with diffuse disc osteophyte complex formation and hypertrophic changes posterior limits. There is moderate severe central canal stenosis. There is moderate neural from narrowing predominantly right-sided. L1-2: Disc disease and neural foraminal narrowing. Facet arthropathy. Moderate severe central canal and neural from narrowing. Otherwise no fracture malalignment. Mild levocurvature. Right renal calculi. CT/CT lumbar spine wo con IMPRESSION: Negative acute fracture malalignment. Moderate severe multilevel central canal narrowing due to degenerative changes Impression dictated by: Alo Mayer M.D.01/12/2025 2:53 PM Dictation Location: [place] [address] Transcribed By: [facility] 01/12/25 1453 Dictated By: Alo Mayer MD 01/12/25 1438 Signed By: 01/12/25 1453 Normal [facility] X-ray reportOrdered By: Jorge Mayer on 01-12-2025 Study report [facility] [address] [place] [id number] XRay Report Signed Patient: Valentin Torre MR#: [id number] : 1955 Acct:[id number] Age/Sex: 69 / M ADM Date: 5 Loc: ER Room: Type: [facility] ER Attending Dr: Copies to: Matthew Harrell PA-C~ Ordering Provider: Matthew Harrell PA-C Date of Service: 01/12/25 XR/XR knee RT 2V: Fall , patella tenderness RIGHT KNEE - 2 views CLINICAL HISTORY: Fall, knee pain COMPARISON: None FINDINGS: Tricompartmental degenerative change. Small joint effusion. No fractures. No dislocation XR/XR knee RT 2V IMPRESSION: Degenerative change. Small joint effusion. No fracture. Impression dictated by: Alo Mayer M.D.01/12/2025 3:08 PM Dictation Location: [facility]29 Transcribed By: MARV 01/12/25 1508 Dictated By: Alo aMyer MD 01/12/25 1507 Signed By: 01/12/25 [facility]8 [facility] Work Phone: XR knee RT 2Von 01-12-2025 XR knee RT 2V [facility] [place] [address] XRay Report Signed Patient: Valentin Torre MR#: [id number] 29 : 1955 Acct:[id number] Age/Sex: 69 / M ADM Date: 01/12/25 Loc: ER Room: Type: [facility] ER Attending Dr: Copies to: Matthew Harrell PA-C Ordering Provider: Matthew Harrell PA-C Date of Service: 01/12/25 XR/XR knee RT 2V: Fall , patella tenderness RIGHT KNEE - 2 views CLINICAL HISTORY: Fall, knee pain COMPARISON: None FINDINGS: Tricompartmental degenerative change. Small joint effusion. No fractures. No dislocation XR/XR knee RT 2V IMPRESSION: Degenerative change. Small joint effusion. No fracture. Impression dictated by: Alo Mayer M.D.01/12/2025 3:08 PM Dictation Location: [facility]29 Transcribed By: MARV 01/12/25 1508 Dictated By: Alo Mayer MD 01/12/25 1507 Signed By: 01/12/25 1508 Normal [facility] Alanine aminotransferase [En zymatic activity/volume] in Serum or PlasmaOrdered By: Sascha Sutton on 12-07-2024 ALT [Catalytic activity/Vol] Alanine aminotransferase [Enzymatic activity/volume] in Serum or Plasma 7-52 [facility] Albumin [Mass/volume] in Ser um or Plasma by Bromocresol green (BCG) dye binding methoOrdered By: Sascha Sutton on 12-07-2024 Albumin BCG dye [Mass/Vol] Albumin [Mass/volume] in Serum or Plasma by Bromocresol green (BCG) dye binding metho 3.5-5.7 [facility] Alkaline phosphatase [Enzyma tic activity/volume] in Serum or PlasmaOrdered By: Sascha Sutton 12-07-2024 ALP [Catalytic activity/Vol] Alkaline phosphatase [Enzymatic activity/volume] in Serum or Plasma 34-104 [facility] Aspartate aminotransferase [ Enzymatic activity/volume] in Serum or PlasmaOrdered By: Sascha Sutton 12-07-2024 AST [Catalytic activity/Vol] Aspartate aminotransferase [Enzymatic activity/volume] in Serum or Plasma 13-39 [facility] Bilirubin.total [Mass/volume ] in Serum or PlasmaOrdered By: Sascha Sutton 12-07-2024 Bilirubin [Mass/Vol] Bilirubin.total [Mass/volume] in Serum or Plasma 0.3-1.0 [facility] Calcium [Mass/volume] in Ser um or PlasmaOrdered By: Sascha Sutton 12-07-2024 Calcium [Mass/Vol] Calcium [Mass/volume ] in Serum or Plasma 8.6-10.3 [facility] Carbon dioxide, total [Moles /volume] in Serum or PlasmaOrdered By: Sascha Sutton 12-07-2024 CO2 [Moles/Vol] Carbon dioxide, tota l [Moles/volume] in Serum or Plasma 21.0-31.0 [facility] Chloride [Moles/volume] in S ace or PlasmaOrdered By: Sascha Sutton 12-07-2024 Chloride [Moles/Vol] Chloride [Moles/vol ume] in Serum or Plasma High 98-107 [facility] Cholesterol [Mass/volume] in Serum or PlasmaOrdered By: Sascha Sutton on 12-07-2024 Cholesterol [Mass/Vol] Cholesterol [Mass /volume] in Serum or Plasma Low 140-200 [facility] Comment on above: Chol less than 200 m g/dl low riskChol 201-239 mg/dl borderline riskChol 240 mg/dl and greater high risk Cholesterol in HDL [Mass/vol ume] in Serum or PlasmaOrdered By: Sascha Sutton on 12-07-2024 Cholesterol in HDL [Mass/Vol] Serum or plasma high density lipoprotein (HDL) cholesterol measurement 23- [facility] Comment on above: HDL CHOL ATP-III CLA SSIFICATION Cardiovascular RiskHDL > or equal to 60 mg/dL LOWHDL < 40 mg/dL HIGH Cholesterol in LDL Calc [Mas s/Vol]Ordered By: Sascha Sutton on 12-07-2024 Cholesterol in LDL [Mass/Vol] Cholesterol in LDL [Mass/volume] in Serum or Plasma by calculation 0-100 [facility] Comment on above: LDL ATP III CLASSIFI CATIONLDL less than 100 mg/dL OptimalLDL 100-129 mg/dL Near or above optimalLDL 130-159 mg/dL Borderline highLDL 160-189 mg/dL HighLDL greater than 189 mg/dL Very high Cholesterol in VLDL Calc [Ma ss/Vol]Ordered By: Sascha Sutton on 12-07-2024 Cholesterol in VLDL [Mass/Vol] Cholesterol in VLDL [Mass/volume] in Serum or Plasma by calculation [facility] Comprehensive Metabolic Pane vivek 12-07-2024 Albumin [Mass/Vol] 4.1 g/dL Normal 3.5-5.7 [facility] Comment on above: Performed By: #### E SR, DIFF CBC, ADDONUAPLUS, CMP #### [facility] [address] [place] [address] [place] #### CH50, C4, C3 #### [facility] , Albumin/Globulin [Mass ratio] 1.8 {ratio} Normal [facility] Comment on above: Performed By: #### E SR, DIFF CBC, ADDONUAPLUS, CMP #### [facility] [address] [place] [address] #### CH50, C4, C3 #### [facility] , ALP [Catalytic activity/Vol] 82 U/L Normal 34-104 [facility] Comment on above: Performed By: #### E SR, DIFF CBC, ADDONUAPLUS, CMP #### [address] #### CH50, C4, C3 #### [facility] , ALT [Catalytic activity/Vol] 28 U/L Normal 7-52 [facility] Comment on above: Performed By: #### E SR, DIFF CBC, ADDONUAPLUS, CMP #### [address] #### CH50, C4, C3 #### [facility] , Anion gap [Moles/Vol] 10.2 mmol/L Normal 6.0-15.[address] [facility] Comment on above: Performed By: #### E SR, DIFF CBC, ADDONUAPLUS, CMP #### [address] #### CH50, C4, C3 #### [facility] , AST [Catalytic activity/Vol] 17 U/L Normal 13-39 [facility] Comment on above: Performed By: #### E SR, DIFF CBC, ADDONUAPLUS, CMP #### [facility] [address] [place] [address] [place] #### CH50, C4, C3 #### [facility] , Bilirubin [Mass/Vol] 0.6 mg/dL Normal 0.3-1.0 [facility] Comment on above: Performed By: #### E SR, DIFF CBC, ADDONUAPLUS, CMP #### [place] [address] [place] #### CH50, C4, C3 #### [facility] , Calcium [Mass/Vol] 8.9 mg/dL Normal 8.6-10.3 [facility] Comment on above: Performed By: #### E SR, DIFF CBC, ADDONUAPLUS, CMP #### [place] [address] [place] #### CH50, C4, C3 #### [facility] , Chloride [Moles/Vol] 110 mmol/L High 98-107 [facility] Comment on above: Performed By: #### E SR, DIFF CBC, ADDONUAPLUS, CMP #### [place] [address] [place] #### CH50, C4, C3 #### [facility] , CO2 [Moles/Vol] 22.8 mmol/L Normal 21.0-31.0 [facility] Comment on above: Performed By: #### E SR, DIFF CBC, ADDONUAPLUS, CMP #### [place] [address] [place] #### CH50, C4, C3 #### [facility] , Creatinine [Mass/Vol] 0.85 mg/dL Normal 0.70-1.30 [facility] Comment on above: Performed By: #### E SR, DIFF CBC, ADDONUAPLUS, CMP #### [place] [address] [place] #### CH50, C4, C3 #### [facility] , GFR/1.73 sq M.predicted MDRD (S/P/Bld) [Vol rate/Area] mL/min/{1.73_m2} Normal [facility] Comment on above: Performed By: #### E SR, DIFF CBC, ADDONUAPLUS, CMP #### [facility] [address] [place] [address] [place] #### CH50, C4, C3 #### [facility] , Globulin (S) [Mass/Vol] 2.3 g/dL Normal [facility] Comment on above: Performed By: #### E SR, DIFF CBC, ADDONUAPLUS, CMP #### [place] [address] [place] #### CH50, C4, C3 #### [facility] , Glucose [Mass/Vol] 97 mg/dL Normal 70-100 [facility] Comment on above: Result Comment: [place] Glucose Reference Range is dependent on time and content of last meal. Glucose of more than 200 mg/dL in a nonstressed, ambulatory subject supports the diagnosis of Diabetes Mellitus. ADA recommended reference range Performed By: #### E SR, DIFF CBC, ADDONUAPLUS, CMP #### [place] [address] [place] #### CH50, C4, C3 #### [facility] , Potassium [Moles/Vol] 4.0 mmol/L Normal 3.5-5.1 [facility] Comment on above: Performed By: #### E SR, DIFF CBC, ADDONUAPLUS, CMP #### [place] [address] [place] #### CH50, C4, C3 #### [facility] , Protein [Mass/Vol] 6.4 g/dL Normal 6.4-8.9 [facility] Comment on above: Performed By: #### E SR, DIFF CBC, ADDONUAPLUS, CMP #### [place] [address] [place] #### CH50, C4, C3 #### [facility] , Sodium [Moles/Vol] 139 mmol/L Normal 136-145 [facility] Comment on above: Performed By: #### E SR, DIFF CBC, ADDONUAPLUS, CMP #### [place] [address] [place] #### CH50, C4, C3 #### [facility] , Urea nitrogen [Mass/Vol] 29 mg/dL High 7-25 [facility] Comment on above: Performed By: #### E SR, DIFF CBC, ADDONUAPLUS, CMP #### [facility] [address] [place] [address] [place] #### CH50, C4, C3 #### [facility] , Creatinine [Mass/volume] in Serum or PlasmaOrdered By: Sascha Sutton on 12-07-2024 Creatinine [Mass/Vol] Creatinine [Mass/v olume] in Serum or Plasma 0.70-1.30 [facility] Globulin Calc (S) [Mass/Vol] Ordered By: Sascha Sutton on 12-07-2024 Globulin (S) [Mass/Vol] Serum globulin measurement by calculation (mass/volume) [facility] Glucose [Mass/volume] in Ser um or PlasmaOrdered By: Sascha Sutton on 12-07-2024 Glucose [Mass/Vol] Glucose [Mass/volume ] in Serum or Plasma 70-100 [facility] Comment on above: ADA recommended refe rence rangeRandom Glucose Reference Range is dependent on time and content of last meal. Glucose of more than 200 mg/dL in a nonstressed, ambulatory subject supports the diagnosis of Diabetes Mellitus. Lipid Panelon 12-07-2024 Cholesterol [Mass/Vol] 125 mg/dL Low 140-200 [facility] Comment on above: Result Comment: Chol less than 200 mg/dl low risk Chol 201-239 mg/dl borderline risk Chol 240 mg/dl and greater high risk Performed By: #### E SR, DIFF CBC, ADDONUAPLUS, CMP #### [facility] [address] [place] [address] [place] #### CH50, C4, C3 #### [facility] , Cholesterol in HDL [Mass/Vol] 53 mg/dL Normal 23-92 [facility] Comment on above: Result Comment: HDL CHOL ATP-III CLASSIFICATION Cardiovascular Risk HDL > or equal to 60 mg/dL LOW HDL < 40 mg/dL HIGH Performed By: #### E SR, DIFF CBC, ADDONUAPLUS, CMP #### [facility] [address] [place] [address] [place] #### CH50, C4, C3 #### [facility] , Cholesterol.total/Chol esterol in HDL [Mass ratio] 2.4 {ratio} Normal <5.0 [facility] Comment on above: Result Comment: PERF ORMED BY: [place] [address] PATHOLOGIST CREASING MACHINE OPERATOR HECTOR MEJIA M.D. Performed By: #### E SR, DIFF CBC, ADDONUAPLUS, CMP #### [place] [address] [place] #### CH50, C4, C3 #### [facility] , LDL Cholesterol,Calculated 61 mg/dL Normal 0-100 [facility] Comment on above: Result Comment: LDL ATP III CLASSIFICATION LDL less than 100 mg/dL Optimal LDL 100-129 mg/dL Near or above optimal LDL 130-159 mg/dL Borderline high LDL 160-189 mg/dL High LDL greater than 189 mg/dL Very high Performed By: #### E SR, DIFF CBC, ADDONUAPLUS, CMP #### [place] [address] [place] #### CH50, C4, C3 #### [facility] , Triglyceride w/Reflex 54 mg/dL Normal 0-149 [facility] Comment on above: Result Comment: TRIG ATP III CLASSIFICATION TRIG less than 150 mg/dL Normal TRIG 150-199 mg/dL Borderline high TRIG 200-500 mg/dL High TRIG greater than 500 mg/dL Very high Standard traceable to the Center for Disease Conrtrol and Prevention (CDC) test method. Performed By: #### E SR, DIFF CBC, ADDONUAPLUS, CMP #### [place] [address] [place] #### CH50, C4, C3 #### [facility] , VLDL CHOLESTEROL 10 mg/dL Normal [facility] Comment on above: Performed By: #### E SR, DIFF CBC, ADDONUAPLUS, CMP #### [place] [address] [place] #### CH50, C4, C3 #### [facility] , No Panel InformationOrdered By: Sascha Sutton on 12-07-2024 Estimated GFR (CKD-EPI) > 60.0 mL/Min [facility] Creatinine Clearance (Chem N/A [facility] PSA Screen (Yearly Only)on 0 12-07-2024 PSA Screen (Yearly Only) 2.510 ng/mL Normal 0.000-4.00 0 [facility] Comment on above: Order Comment: Is pa tient <50 yrs? Medicare does not pay <50.: Y What is the date of the last PSA Screen?: 04/08/23 Is Medicare the insurance?: Y Did you verify eligibility (Dx Time) check TestViewGp: YES TO ALL Result Comment: Seri al tumor marker results determined by assays using different manufacturers or methods may not be comparable. [facility] machine maintenance repairer and method: [employer]p DXI, CHEMILUMINESCENT IMMUNOASSAY. PERFORMED BY: [place] [address] PATHOLOGIST CREASING MACHINE OPERATOR HECTOR MEJIA M.D. Performed By: #### E SR, DIFF CBC, ADDONUAPLUS, CMP #### [address] #### CH50, C4, C3 #### [facility] , Potassium [Moles/volume] in Serum or PlasmaOrdered By: Sascha Sutton on 12-07-2024 Potassium [Moles/Vol] Potassium [Moles/v olume] in Serum or Plasma 3.5-5.1 [facility] Prostate specific Ag [Mass/v olume] in Serum or PlasmaOrdered By: Sascha Sutton on 12-07-2024 Prostate specific Ag [Mass/Vol] Prostate specific Ag [Mass/volume] in Serum or Plasma 0.000-4.00 0 [facility] Comment on above: Serial tumor marker results determined by assays using different manufacturers or methods may not be comparable.[facility] machine maintenance repairer and method:Air[employer]EL DXI, CHEMILUMINESCENT IMMUNOASSAY. Protein [Mass/volume] in Ser um or PlasmaOrdered By: Sascha Sutton on 12-07-2024 Protein [Mass/Vol] Protein [Mass/volume ] in Serum or Plasma 6.4-8.9 [facility] Serum or plasma albumin/glob ulin mass ratioOrdered By: Sascha Sutton on 12-07-2024 Albumin/Globulin [Mass ratio] Serum or plasma albumin/globulin mass ratio [facility] Serum or plasma anion gap de terminationOrdered By: Sascha Sutton on 12-07-2024 Anion gap [Moles/Vol] Serum or plasma an ion gap determination 6.0-15.0 [facility] Serum or plasma total choles terol/high density lipoprotein (HDL) cholesterol mass ratOrdered By: Sascha Sutton on 12-07-2024 Cholesterol.total/Chol esterol in HDL [Mass ratio] Serum or plasma total cholesterol/high density lipoprotein (HDL) cholesterol mass rat <5.0 [facility] Sodium [Moles/volume] in Ser um or PlasmaOrdered By: Sascha Sutton on 12-07-2024 Sodium [Moles/Vol] Sodium [Moles/volume ] in Serum or Plasma 136-145 [facility] Triglyceride [Mass/volume] i n Serum or PlasmaOrdered By: Sascha Sutton on 12-07-2024 Triglyceride [Mass/Vol] Triglyceride [Mass/volume] in Serum or Plasma 0-149 [facility] Comment on above: TRIG ATP III CLASSIF ICATIONTRIG less than 150 mg/dL NormalTRIG 150-199 mg/dL Borderline highTRIG 200-500 mg/dL High TRIG greater than 500 mg/dL Very highStandard traceable to the Center for Disease Conrtrol and Prevention (CDC) test method. Urea nitrogen [Mass/volume] in Serum or PlasmaOrdered By: Sascha Sutton on 12-07-2024 Urea nitrogen [Mass/Vol] Urea nitrogen [Mass/volume] in Serum or Plasma High 7-25 [facility] MR hip RT wo conon 4 MR hip RT wo con [facility] [place] [address] MRI Report Signed Patient: Valentin Torre MR#: [id number] 29 : 1955 Acct:[id number] Age/Sex: 69 / M ADM Date: 11/05/24 Loc: [facility] Room: Type: [facility] Attending Dr: Jaime Murcia II, MD Copies to: Jaime Murcia MD Ordering Provider: Jaime Murcia MD Date of Service: 11/05/24 MR/MR hip RT wo con: Eval for hip stability EXAMINATION: MRI OF THE RIGHT HIP CLINICAL HISTORY: Right hip pain for one year, no known injury. COMPARISON: Right hip 08/29/2024 TECHNIQUE: Multiecho, multiplanar imaging was performed with use of an extremity coil. No contrast was administered. FINDINGS: Bones/Joint: Heterogenous bone marrow signal. No focal lesion. No bone marrow edema. No evidence of avascular necrosis. No fracture. Minimal joint fluid. Mild joint spurring. Labrum: Suboptimally visualized. Heterogenous in signal likely combination of degeneration/tear. Muscles: Normal Soft tissues: Normal Pelvic contents: No acute findings. Sigmoid diverticulosis. MR/MR hip RT wo con IMPRESSION: NO ACUTE FINDINGS. MILD DEGENERATIVE CHANGE WITH MINIMAL JOINT FLUID. NO FRACTURE, BONE MARROW EDEMA OR EVIDENCE OF AVASCULAR NECROSIS. HETEROGENOUS BONE MARROW SIGNAL WITHOUT FOCAL LESION. FINDING IS NONSPECIFIC. Impression dictated by: Marcial Patel Jr., D.O.11/05/2024 12:53 PM Dictation Location: [place] [address] Transcribed By: [facility] 11/05/24 1253 Dictated By: Marcial Patel Jr, DO 11/05/24 1248 Signed By: 11/05/24 1253 Normal [facility] Alanine aminotransferase [En zymatic activity/volume] in Serum or PlasmaOrdered By: Romel Davis on 10-10-2024 ALT [Catalytic activity/Vol] Alanine aminotransferase [Enzymatic activity/volume] in Serum or Plasma [facility] Albumin [Mass/volume] in Ser um or Plasma by Bromocresol green (BCG) dye binding methoOrdered By: Romel Davis on 10-10-2024 Albumin BCG dye [Mass/Vol] Albumin [Mass/volume] in Serum or Plasma by Bromocresol green (BCG) dye binding metho 3.5-5.7 [facility] Alkaline phosphatase [Enzyma tic activity/volume] in Serum or PlasmaOrdered By: Romel Davis on 10-10-2024 ALP [Catalytic activity/Vol] Alkaline phosphatase [Enzymatic activity/volume] in Serum or Plasma 34-104 [facility] Appearance of UrineOrdered B y: Romel Davis on 10-10-2024 Appearance (U) Urine appearance [facility] Aspartate aminotransferase [ Enzymatic activity/volume] in Serum or PlasmaOrdered By: Romel Davis on 10-10-2024 AST [Catalytic activity/Vol] Aspartate aminotransferase [Enzymatic activity/volume] in Serum or Plasma 13-39 [facility] Bacteria [Presence] in Urine by AutomatedOrdered By: Romel Davis on 10-10-2024 Bacteria Auto Ql (U) Bacteria [Presence] in Urine by Automated None Seen [facility] Basophils Auto (Bld) [#/Vol] Ordered By: Romel Davis on 10-10-2024 Basophils (Bld) [#/Vol] Automated basophil count 0.0-0.2 [facility] Basophils/100 WBC Auto (Bld) Ordered By: Romel Davis on 10-10-2024 Basophils/100 WBC (Bld) Automated basophil % . [facility] Bilirubin Test strip Ql (U)O rdered By: Romel Davis on 10-10-2024 Bilirubin Ql (U) Bilirubin.total [Pre sence] in Urine by Test strip Negative [facility] Bilirubin.total [Mass/volume ] in Serum or PlasmaOrdered By: Romel Davis on 10-10-2024 Bilirubin [Mass/Vol] Bilirubin.total [Mass/volume] in Serum or Plasma 0.3-1.0 [facility] Calcium [Mass/volume] in Ser um or PlasmaOrdered By: Romel Davis on 10-10-2024 Calcium [Mass/Vol] Calcium [Mass/volume ] in Serum or Plasma 8.6-10.3 [facility] Carbon dioxide, total [Moles /volume] in Serum or PlasmaOrdered By: Romel Davis on 10-10-2024 CO2 [Moles/Vol] Carbon dioxide, tota l [Moles/volume] in Serum or Plasma 21.0-31.0 [facility] Chloride [Moles/volume] in S ace or PlasmaOrdered By: Romel Davis on 10-10-2024 Chloride [Moles/Vol] Chloride [Moles/vol ume] in Serum or Plasma 98-107 [facility] Color Auto (U)Ordered By: Bridgett Davis on 10-10-2024 Color (U) Color of Urine by Auto Yellow [facility] Complement C3on 10-10-2024 Complement C3 130 mg/dL Normal 82-167 [facility] Comment on above: Result Comment: Perf ormed at: [employer] [id number] Mobile Lounge Driver Or Operator: Richy Ardon PhD, Phone: [phone] Performed By: #### E SR, DIFF CBC, ADDONUAPLUS, CMP #### [address] #### CH50, C4, C3 #### [facility] , Complement C4on 10-10-2024 Complement C4 13 mg/dL Normal 12-38 [facility] Comment on above: Result Comment: PERF ORMED BY: [place] [address] PATHOLOGIST CREASING MACHINE OPERATOR HECTOR MEJIA M.D. Performed By: #### E SR, DIFF CBC, ADDONUAPLUS, CMP #### [address] #### CH50, C4, C3 #### [facility] , Complement Total (CH50)on Complement Total (CH50) 59 Normal >41 [facility] Comment on above: Result Comment: [...] determine out of range values. Performed at: [employer] [id number] Mobile Lounge Driver Or Operator: Richy Ardon PhD, Phone: [phone] PERFORMED BY: [place] [address] PATHOLOGIST CREASING MACHINE OPERATOR HECTOR MEJIA M.D. Performed By: #### E SR, DIFF CBC, ADDONUAPLUS, CMP #### [place] [address] [place] #### CH50, C4, C3 #### [facility] , Complete Blood Count Auto Di ffon 10-10-2024 Basophils (Bld) [#/Vol] 0.1 10*3/uL Normal 0.0-0.2 [facility] Comment on above: Performed By: #### E SR, DIFF CBC, ADDONUAPLUS, CMP #### [address] #### CH50, C4, C3 #### [facility] , Basophils/100 WBC (Bld) 0.9 % Normal . [facility] Comment on above: Performed By: #### E SR, DIFF CBC, ADDONUAPLUS, CMP #### [place] [address] [place] #### CH50, C4, C3 #### [facility] , Eosinophils (Bld) [#/Vol] 0.1 10*3/uL Normal 0.0-0.45 [facility] Comment on above: Performed By: #### E SR, DIFF CBC, ADDONUAPLUS, CMP #### [place] [address] [place] #### CH50, C4, C3 #### [facility] , Eosinophils/100 WBC (Bld) 1.5 % Normal . [facility] Comment on above: Performed By: #### E SR, DIFF CBC, ADDONUAPLUS, CMP #### [place] [address] [place] #### CH50, C4, C3 #### [facility] , Erythrocyte distribution width (RBC) [Ratio] 14.5 % Normal 12.0-14.8 [facility] Comment on above: Performed By: #### E SR, DIFF CBC, ADDONUAPLUS, CMP #### [address] #### CH50, C4, C3 #### [facility] , Hematocrit (Bld) [Volume fraction] 44.8 % Normal 38.8-50.0 [facility] Comment on above: Performed By: #### E SR, DIFF CBC, ADDONUAPLUS, CMP #### [place] [address] [place] #### CH50, C4, C3 #### [facility] , Hemoglobin (Bld) [Mass/Vol] 15.4 g/dL Normal 13.0-17.0 [facility] Comment on above: Performed By: #### E SR, DIFF CBC, ADDONUAPLUS, CMP #### [address] #### CH50, C4, C3 #### [facility] , Lymphocytes (Bld) [#/Vol] 0.9 10*3/uL Low 1.00-4.8 [facility] Comment on above: Performed By: #### E SR, DIFF CBC, ADDONUAPLUS, CMP #### [place] [address] [place] #### CH50, C4, C3 #### [facility] , Lymphocytes/100 WBC (Bld) 12.7 % Normal . [facility] Comment on above: Performed By: #### E SR, DIFF CBC, ADDONUAPLUS, CMP #### [place] [address] [place] #### CH50, C4, C3 #### [facility] , MCH (RBC) [Entitic mass] 31.2 pg Normal 27.5-35.2 [facility] Comment on above: Performed By: #### E SR, DIFF CBC, ADDONUAPLUS, CMP #### [place] [address] [place] #### CH50, C4, C3 #### [facility] , MCV (RBC) [Entitic vol] 90.6 fL Normal 83.5-101 [facility] Comment on above: Performed By: #### E SR, DIFF CBC, ADDONUAPLUS, CMP #### [place] [address] [place] #### CH50, C4, C3 #### [facility] , Mean Corpuscular HGB Conc 34.4 g/dL Normal 32.5-35.6 [facility] Comment on above: Performed By: #### E SR, DIFF CBC, ADDONUAPLUS, CMP #### [place] [address] [place] #### CH50, C4, C3 #### [facility] , Monocytes (Bld) [#/Vol] 0.9 10*3/uL High 0.0-0.8 [facility] Comment on above: Performed By: #### E SR, DIFF CBC, ADDONUAPLUS, CMP #### [place] [address] [place] #### CH50, C4, C3 #### [facility] , Monocytes/100 WBC (Bld) 12.1 % Normal . [facility] Comment on above: Performed By: #### E SR, DIFF CBC, ADDONUAPLUS, CMP #### [place] [address] [place] #### CH50, C4, C3 #### [facility] , Neutrophils (Bld) [#/Vol] 5.2 10*3/uL Normal 1.8-7.7 [facility] Comment on above: Performed By: #### E SR, DIFF CBC, ADDONUAPLUS, CMP #### [place] [address] [place] #### CH50, C4, C3 #### [facility] , Neutrophils/100 WBC (Bld) 72.8 % Normal . [facility] Comment on above: Performed By: #### E SR, DIFF CBC, ADDONUAPLUS, CMP #### [place] [address] [place] #### CH50, C4, C3 #### [facility] , NRBC% 0.2 /100{WBC} Normal 0-0.5 [facility] Comment on above: Performed By: #### E SR, DIFF CBC, ADDONUAPLUS, CMP #### [address] #### CH50, C4, C3 #### [facility] , Platelet mean volume (Bld) [Entitic vol] 8.0 fL Normal 6.6-10.1 [facility] Comment on above: Performed By: #### E SR, DIFF CBC, ADDONUAPLUS, CMP #### [place], [place] [address] [place] #### CH50, C4, C3 #### [facility] , Platelets (Bld) [#/Vol] 165 10*3/uL Normal 150-450 [facility] Comment on above: Performed By: #### E SR, DIFF CBC, ADDONUAPLUS, CMP #### [place] [address] [place] #### CH50, C4, C3 #### [facility] , RBC (Bld) [#/Vol] 4.94 10*6/uL Normal 3.90-5.60 [facility] Comment on above: Performed By: #### E SR, DIFF CBC, ADDONUAPLUS, CMP #### [place] [address] [place] #### CH50, C4, C3 #### [facility] , WBC (Bld) [#/Vol] 7.2 10*3/uL Normal 4.1-10.5 [facility] Comment on above: Performed By: #### E SR, DIFF CBC, ADDONUAPLUS, CMP #### [address] #### CH50, C4, C3 #### [facility] , Comprehensive Metabolic Pane vivek 10-10-2024 Albumin [Mass/Vol] 4.0 g/dL Normal 3.5-5.7 [facility] Comment on above: Performed By: #### E SR, DIFF CBC, ADDONUAPLUS, CMP #### [place] [address] [place] #### CH50, C4, C3 #### [facility] , Albumin/Globulin [Mass ratio] 1.9 {ratio} Normal [facility] Comment on above: Performed By: #### E SR, DIFF CBC, ADDONUAPLUS, CMP #### [place] [address] [place] #### CH50, C4, C3 #### [facility] , ALP [Catalytic activity/Vol] 85 U/L Normal 34-104 [facility] Comment on above: Result Comment: PERF ORMED BY: [place] [address] PATHOLOGIST CREASING MACHINE OPERATOR HECTOR MEJIA M.D. Performed By: #### E SR, DIFF CBC, ADDONUAPLUS, CMP #### [place] [address] [place] #### CH50, C4, C3 #### [facility] , ALT [Catalytic activity/Vol] 27 U/L Normal 7-52 [facility] Comment on above: Performed By: #### E SR, DIFF CBC, ADDONUAPLUS, CMP #### [place] [address] [place] #### CH50, C4, C3 #### [facility] , Anion gap [Moles/Vol] 11.3 mmol/L Normal 6.0-15.0 [facility] Comment on above: Performed By: #### E SR, DIFF CBC, ADDONUAPLUS, CMP #### [facility] [address] [place] [address] #### CH50, C4, C3 #### [facility] , AST [Catalytic activity/Vol] 16 U/L Normal 13-39 [facility] Comment on above: Performed By: #### E SR, DIFF CBC, ADDONUAPLUS, CMP #### [facility] [address] [place] [address] #### CH50, C4, C3 #### [facility] , Bilirubin [Mass/Vol] 0.5 mg/dL Normal 0.3-1.0 [facility] Comment on above: Performed By: #### E SR, DIFF CBC, ADDONUAPLUS, CMP #### [facility] [address] [place] [address] [place] #### CH50, C4, C3 #### [facility] , Calcium [Mass/Vol] 8.9 mg/dL Normal 8.6-10.3 [facility] Comment on above: Performed By: #### E SR, DIFF CBC, ADDONUAPLUS, CMP #### [facility] [address] [place] [address] [place] #### CH50, C4, C3 #### [facility] , Chloride [Moles/Vol] 107 mmol/L Normal 98-107 [facility] Comment on above: Performed By: #### E SR, DIFF CBC, ADDONUAPLUS, CMP #### [facility] [address] [place] [address] [place] #### CH50, C4, C3 #### [facility] , CO2 [Moles/Vol] 24.0 mmol/L Normal 21.0-31.0 [facility] Comment on above: Performed By: #### E SR, DIFF CBC, ADDONUAPLUS, CMP #### [place] [address] [place] #### CH50, C4, C3 #### [facility] , Creatinine [Mass/Vol] 0.95 mg/dL Normal 0.70-1.30 [facility] Comment on above: Performed By: #### E SR, DIFF CBC, ADDONUAPLUS, CMP #### [address] #### CH50, C4, C3 #### [facility] , GFR/1.73 sq M.predicted MDRD (S/P/Bld) [Vol rate/Area] mL/min/{1.73_m2} Normal [facility] Comment on above: Performed By: #### E SR, DIFF CBC, ADDONUAPLUS, CMP #### [address] #### CH50, C4, C3 #### [facility] , Globulin (S) [Mass/Vol] 2.1 g/dL Normal [facility] Comment on above: Performed By: #### E SR, DIFF CBC, ADDONUAPLUS, CMP #### [address] #### CH50, C4, C3 #### [facility] , Glucose [Mass/Vol] 96 mg/dL Normal 70-100 [facility] Comment on above: Result Comment: [place] om Glucose Reference Range is dependent on time and content of last meal. Glucose of more than 200 mg/dL in a nonstressed, ambulatory subject supports the diagnosis of Diabetes Mellitus. ADA recommended reference range Performed By: #### E SR, DIFF CBC, ADDONUAPLUS, CMP #### [place] [address] [place] #### CH50, C4, C3 #### [facility] , Potassium [Moles/Vol] 4.3 mmol/L Normal 3.5-5.1 [facility] Comment on above: Performed By: #### E SR, DIFF CBC, ADDONUAPLUS, CMP #### [place] [address] [place] #### CH50, C4, C3 #### [facility] , Protein [Mass/Vol] 6.1 g/dL Low 6.4-8.9 [facility] Comment on above: Performed By: #### E SR, DIFF CBC, ADDONUAPLUS, CMP #### [place] [address] [place] #### CH50, C4, C3 #### [facility] , Sodium [Moles/Vol] 138 mmol/L Normal 136-145 [facility] Comment on above: Performed By: #### E SR, DIFF CBC, ADDONUAPLUS, CMP #### [place] [address] [place] #### CH50, C4, C3 #### [facility] , Urea nitrogen [Mass/Vol] 28 mg/dL High 7-25 [facility] Comment on above: Performed By: #### E SR, DIFF CBC, ADDONUAPLUS, CMP #### [place] [address] [place] #### CH50, C4, C3 #### [facility] , Creatinine [Mass/volume] in Serum or PlasmaOrdered By: Romel Davis on 10-10-2024 Creatinine [Mass/Vol] Creatinine [Mass/v olume] in Serum or Plasma 0.70-1.30 [facility] Dipstick and Microscopicon 1 12-10-2023 Appearance (U) Clear Normal Clear [facility] Comment on above: Order Comment: Name Collection Type:: Clean-Voided Midstream Performed By: #### E SR, DIFF CBC, ADDONUAPLUS, CMP #### [place] [address] [place] #### CH50, C4, C3 #### [facility] , Bacteria,Urine None Seen Normal None Seen [facility] Comment on above: Order Comment: Name Collection Type:: Clean-Voided Midstream Performed By: #### E SR, DIFF CBC, ADDONUAPLUS, CMP #### [address] #### CH50, C4, C3 #### [facility] , Bilirubin,Urine Negative Normal Negative [facility] Comment on above: Order Comment: Name Collection Type:: Clean-Voided Midstream Performed By: #### E SR, DIFF CBC, ADDONUAPLUS, CMP #### [address] #### CH50, C4, C3 #### [facility] , Color (U) Yellow Normal Yellow [facility] Comment on above: Order Comment: Name Collection Type:: Clean-Voided Midstream Performed By: #### E SR, DIFF CBC, ADDONUAPLUS, CMP #### [address] #### CH50, C4, C3 #### [facility] , Glucose Ql (U) Normal Normal Normal [facility] Comment on above: Order Comment: Name Collection Type:: Clean-Voided Midstream Performed By: #### E SR, DIFF CBC, ADDONUAPLUS, CMP #### [address] #### CH50, C4, C3 #### [facility] , Hyaline Casts,Urine None Normal 0-8 [facility] Comment on above: Order Comment: Name Collection Type:: Clean-Voided Midstream Performed By: #### E SR, DIFF CBC, ADDONUAPLUS, CMP #### [place] [address] [place] #### CH50, C4, C3 #### [facility] , Ketones Ql (U) Negative Normal Negative [facility] Comment on above: Order Comment: Name Collection Type:: Clean-Voided Midstream Performed By: #### E SR, DIFF CBC, ADDONUAPLUS, CMP #### [address] #### CH50, C4, C3 #### [facility] , Leukocyte esterase Test strip Ql (U) Negative Normal Negative [facility] Comment on above: Order Comment: Name Collection Type:: Clean-Voided Midstream Performed By: #### E SR, DIFF CBC, ADDONUAPLUS, CMP #### [address] #### CH50, C4, C3 #### [facility] , Mucus,Urine 1+ Critically abnormal [facility] Comment on above: Order Comment: Name Collection Type:: Clean-Voided Midstream Result Comment: PERF ORMED BY: [place] [address] PATHOLOGIST CREASING MACHINE OPERATOR HECTOR MEJIA M.D. Performed By: #### E SR, DIFF CBC, ADDONUAPLUS, CMP #### [address] #### CH50, C4, C3 #### [facility] , Nitrite,Urine Negative Normal Negative [facility] Comment on above: Order Comment: Name Collection Type:: Clean-Voided Midstream Performed By: #### E SR, DIFF CBC, ADDONUAPLUS, CMP #### [address] #### CH50, C4, C3 #### [facility] , Occult Blood,Urine Negative Normal Negative [facility] Comment on above: Order Comment: Name Collection Type:: Clean-Voided Midstream Performed By: #### E SR, DIFF CBC, ADDONUAPLUS, CMP #### [address] #### CH50, C4, C3 #### [facility] , pH (U) 5.5 [pH] Normal 5.0-9.0 [facility] Comment on above: Order Comment: Name Collection Type:: Clean-Voided Midstream Performed By: #### E SR, DIFF CBC, ADDONUAPLUS, CMP #### [address] #### CH50, C4, C3 #### [facility] , Protein (U) [Mass/Vol] 20 mg/dL High Negative Th e [facility] Comment on above: Order Comment: Name Collection Type:: Clean-Voided Midstream Performed By: #### E SR, DIFF CBC, ADDONUAPLUS, CMP #### [address] #### CH50, C4, C3 #### [facility] , RBC,Urine 1 [HPF] Normal 0-4 [facility] Comment on above: Order Comment: Name Collection Type:: Clean-Voided Midstream Performed By: #### E SR, DIFF CBC, ADDONUAPLUS, CMP #### [address] #### CH50, C4, C3 #### [facility] , Specificy [place],Urine 1.029 Normal 1.001-1.03 0 [facility] Comment on above: Order Comment: Name Collection Type:: Clean-Voided Midstream Performed By: #### E SR, DIFF CBC, ADDONUAPLUS, CMP #### [address] #### CH50, C4, C3 #### [facility] , Urobilinogen,Urine Normal Normal Normal [facility] Comment on above: Order Comment: Name Collection Type:: Clean-Voided Midstream Performed By: #### E SR, DIFF CBC, ADDONUAPLUS, CMP #### [address] #### CH50, C4, C3 #### [facility] , WBC,Urine 1 [HPF] Normal 0-4 [facility] Comment on above: Order Comment: Name Collection Type:: Clean-Voided Midstream Performed By: #### E SR, DIFF CBC, ADDONUAPLUS, CMP #### [facility] [address] [place] [address] [place] #### CH50, C4, C3 #### [facility] , Eosinophils Auto (Bld) [#/Vo l]Ordered By: Romel Davis on 10-10-2024 Eosinophils (Bld) [#/Vol] Automated eosinophil count 0.0-0.45 [facility] Eosinophils/100 WBC Auto (Bl d)Ordered By: Romel Davis on 10-10-2024 Eosinophils/100 WBC (Bld) Automated eosinophil % . [facility] Epithelial cells.squamous [# /area] in Urine sediment by Automated countOrdered By: Romel Davis on 10-10-2024 Epithelial cells.squamous Auto (Urine sed) [#/Area] Epithelial cells.squamous [#/area] in Urine sediment by Automated count [facility] Erythrocyte Sedimentation Ra bruno 10-10-2024 ESR (Bld) [Velocity] 6 mm/h Normal 0-19 [facility] Comment on above: Result Comment: PERF ORMED BY: [place] [address] PATHOLOGIST CREASING MACHINE OPERATOR HECTOR MEIJA M.D. Performed By: #### E SR, DIFF CBC, ADDONUAPLUS, CMP #### [place] [address] [place] #### CH50, C4, C3 #### [facility] , Erythrocyte distribution wid th Auto (RBC) [Ratio]Ordered By: Romel Davis on 10-10-2024 Erythrocyte distribution width (RBC) [Ratio] Erythrocyte distribution width [Ratio] by Automated count 12.0-14.8 [facility] Erythrocyte sedimentation ra te by Photometric methodOrdered By: Romel Davis on 10-10-2024 ESR Photometric method (Bld) [Velocity] Erythrocyte sedimentation rate by Photometric method 0-19 [facility] Erythrocytes [#/area] in Uri ne sediment by Automated countOrdered By: Romel Davis on 10-10-2024 RBC Auto (Urine sed) [#/Area] Erythrocytes [#/area] in Urine sediment by Automated count 0-4 [facility] Globulin Calc (S) [Mass/Vol] Ordered By: Romel Davis on 10-10-2024 Globulin (S) [Mass/Vol] Serum globulin measurement by calculation (mass/volume) [facility] Glucose [Mass/volume] in Ser um or PlasmaOrdered By: Romel Davis on 10-10-2024 Glucose [Mass/Vol] Glucose [Mass/volume ] in Serum or Plasma 70-100 [facility] Comment on above: ADA recommended refe rence rangeRandom Glucose Reference Range is dependent on time and content of last meal. Glucose of more than 200 mg/dL in a nonstressed, ambulatory subject supports the diagnosis of Diabetes Mellitus. Glucose [Mass/volume] in Uri ne by Test stripOrdered By: Romel Davis on 10-10-2024 Glucose Test strip (U) [Mass/Vol] Glucose [Mass/volume] in Urine by Test strip Normal [facility] Hematocrit Auto (Bld) [Volum e fraction]Ordered By: Romel Davis on 10-10-2024 Hematocrit (Bld) [Volume fraction] Hematocrit [Volume Fraction] of Blood by Automated count 38.8-50.0 [facility] Hemoglobin Test strip Ql (U) Ordered By: Romel Davis on 10-10-2024 Hemoglobin Ql (U) Hemoglobin [Presence ] in Urine by Test strip Negative [facility] Hemoglobin [Mass/volume] in BloodOrdered By: Romel Davis 10-10-2024 Hemoglobin (Bld) [Mass/Vol] Hemoglobin [Mass/volume] in Blood 13.0-17.0 [facility] Hyaline casts [#/area] in Ur ine sediment by Automated countOrdered By: Romel Davis on 10-10-2024 Hyaline casts Auto (Urine sed) [#/Area] Hyaline casts [#/area] in Urine sediment by Automated count 0-8 [facility] Ketones Test strip Ql (U)Ord ered By: Romel Davis on 10-10-2024 Ketones Ql (U) Ketones [Presence] i n Urine by Test strip Negative [facility] Leukocyte esterase [Presence ] in Urine by Test stripOrdered By: Romel Davis on 10-10-2024 Leukocyte esterase Test strip Ql (U) Leukocyte esterase [Presence] in Urine by Test strip Negative [facility] Leukocytes [#/area] in Urine sediment by Automated countOrdered By: Romel Davis on 10-10-2024 WBC Auto (Urine sed) [#/Area] Leukocytes [#/area] in Urine sediment by Automated count 0-4 [facility] Leukocytes [#/volume] correc nat for nucleated erythrocytes in Blood by Automated counOrdered By: Romel Davis on 10-10-2024 WBC corrected for nucl RBC Auto (Bld) [#/Vol] Leukocytes [#/volume] corrected for nucleated erythrocytes in Blood by Automated coun 4.1-10.5 [facility] Lymphocytes Auto (Bld) [#/Vo l]Ordered By: Romel Davis on 10-10-2024 Lymphocytes (Bld) [#/Vol] Lymphocytes [#/volume] in Blood by Automated count Low 1.00-4.8 [facility] Lymphocytes/100 WBC Auto (Bl d)Ordered By: Romel Davis on 10-10-2024 Lymphocytes/100 WBC (Bld) Lymphocytes/100 leukocytes in Blood by Automated count . [facility] MCH Auto (RBC) [Entitic mass ]Ordered By: Romel Davis on 10-10-2024 MCH (RBC) [Entitic mass] MCH [Entitic mass] by Automated count 27.5-35.2 [facility] MCHC Auto (RBC) [Mass/Vol]Or dered By: Romel Davis on 10-10-2024 MCHC (RBC) [Mass/Vol] MCHC [Mass/volume] by Automated count 32.5-35.6 [facility] MCV Auto (RBC) [Entitic vol] Ordered By: Romel Davis on 10-10-2024 MCV (RBC) [Entitic vol] MCV [Entitic volume] by Automated count 83.5-101 [facility] Monocytes Auto (Bld) [#/Vol] Ordered By: Romel Davis on 10-10-2024 Monocytes (Bld) [#/Vol] Automated blood monocyte count High 0.0-0.8 [facility] Monocytes/100 WBC Auto (Bld) Ordered By: Romel Davis on 10-10-2024 Monocytes/100 WBC (Bld) Automated monocyte % . [facility] Mucus [Presence] in Urine by AutomatedOrdered By: Romel Davis on 10-10-2024 Mucus Auto Ql (U) Mucus [Presence] in Urine by Automated Abnormal [facility] Neutrophils Auto (Bld) [#/Vo l]Ordered By: Romel Davis on 10-10-2024 Neutrophils (Bld) [#/Vol] Neutrophils [#/volume] in Blood by Automated count 1.8-7.7 [facility] Neutrophils/100 WBC Auto (Bl d)Ordered By: Romel Davis on 10-10-2024 Neutrophils/100 WBC (Bld) Automated neutrophil % . [facility] Nitrite Test strip Ql (U)Ord ered By: Romel Davis on 10-10-2024 Nitrite Ql (U) Nitrite [Presence] i n Urine by Test strip Negative [facility] No Panel InformationOrdered By: Romel Davis on 10-10-2024 Estimated GFR (CKD-EPI) > 60.0 mL/Min [facility] Creatinine Clearance (Chem N/A [facility] Nucleated erythrocytes [Pres ence] in Blood by Automated countOrdered By: Romel Davis on 10-10-2024 Nucleated RBC Auto Ql (Bld) Nucleated erythrocytes [Presence] in Blood by Automated count 0-0.5 [facility] Platelet mean volume Auto (B ld) [Entitic vol]Ordered By: Romel Davis on 10-10-2024 Platelet mean volume (Bld) [Entitic vol] Platelet mean volume [Entitic volume] in Blood by Automated count 6.6-10.1 [facility] Platelets Auto (Bld) [#/Vol] Ordered By: Romel Davis on 10-10-2024 Platelets (Bld) [#/Vol] Platelets [#/volume] in Blood by Automated count 150-450 [facility] Potassium [Moles/volume] in Serum or PlasmaOrdered By: Romel Davis on 10-10-2024 Potassium [Moles/Vol] Potassium [Moles/v olume] in Serum or Plasma 3.5-5.1 [facility] Protein Test strip (U) [Mass /Vol]Ordered By: Romel Davis on 10-10-2024 Protein (U) [Mass/Vol] Protein [Mass/vol ume] in Urine by Test strip High Negative [facility] Protein [Mass/volume] in Ser um or PlasmaOrdered By: Romel Davis on 10-10-2024 Protein [Mass/Vol] Protein [Mass/volume ] in Serum or Plasma Low 6.4-8.9 [facility] RBC Auto (Bld) [#/Vol]Ordere d By: Romel Davis on 10-10-2024 RBC (Bld) [#/Vol] Erythrocytes [#/volu me] in Blood by Automated count 3.90-5.60 [facility] Serum or plasma albumin/glob ulin mass ratioOrdered By: Romel Davis on 10-10-2024 Albumin/Globulin [Mass ratio] Serum or plasma albumin/globulin mass ratio [facility] Serum or plasma anion gap de terminationOrdered By: Romel Davis on 10-10-2024 Anion gap [Moles/Vol] Serum or plasma an ion gap determination 6.0-15.0 [facility] Serum or plasma complement C 3 measurement (mass/volume)Ordered By: Romel Davis on 10-10-2024 Complement C3 [Mass/Vol] Serum or plasma complement C3 measurement (mass/volume) 82-167 [facility] Comment on above: Performed at: [address] [id number] Director: Richy Ardon PhD, Phone: [phone] Serum or plasma complement C 4 measurement (mass/volume)Ordered By: Romel Davis on 10-10-2024 Complement C4 [Mass/Vol] Serum or plasma complement C4 measurement (mass/volume) 12-38 [facility] Sodium [Moles/volume] in Ser um or PlasmaOrdered By: Romel Davis on 10-10-2024 Sodium [Moles/Vol] Sodium [Moles/volume ] in Serum or Plasma 136-145 [facility] Specific gravity Test strip (U) [Rel density]Ordered By: Romel Davis on 10-10-2024 Specific gravity (U) [Rel density] Specific gravity of Urine by Test strip 1.001-1.03 0 [facility] Total hemolytic complement C H50 assayOrdered By: Romel Davis on 10-10-2024 Total Complement (CH50) 59 U/mL >41 [facility] Comment on above: Age Male [...] to determine out of range values.Performed at: [facility] [id number] Director: Richy Ardon PhD, Phone: [phone] Urea nitrogen [Mass/volume] in Serum or PlasmaOrdered By: Romel Davis on 10-10-2024 Urea nitrogen [Mass/Vol] Urea nitrogen [Mass/volume] in Serum or Plasma High 7-25 [facility] Urobilinogen Test strip (U) [Mass/Vol]Ordered By: Romel Davis on 10-10-2024 Urobilinogen (U) [Mass/Vol] Urobilinogen [Mass/volume] in Urine by Test strip Normal [facility] WBC Auto (Bld) [#/Vol]Ordere d By: Romel Davis on 10-10-2024 WBC (Bld) [#/Vol] Leukocytes [#/volume ] in Blood by Automated count 4.1-10.5 [facility] pH Test strip (U)Ordered By: Romel Davis on 10-10-2024 pH (U) pH of Urine by Test strip 5.0-9.0 [facility] XR chest 2V*on 09-19-2024 XR chest 2V* [facility] [place] [address] XRay Report Signed Patient: Valentin Torre MR#: [id number] 31 : 1955 Acct:[id number] Age/Sex: 69 / M ADM Date: 09/19/24 [facility] Attending Dr: Myriam Fonseca [employer]OD [employer] ERECTOR Copies to: Myriam Fonseca APRN Ordering Provider: Myriam Fonseca APRN Date of Service: 09/19/24 XR/XR chest 2V*: R05.9 - Cough, unspecified Chest 2 views CLINICAL HISTORY: Productive cough for one week. COMPARISON: None FINDINGS: Heart normal in size. Lungs are clear. No free air. XR/XR chest 2V* IMPRESSION: NO ACUTE CARDIOPULMONARY ABNORMALITY. Impression dictated by: Marcial Patel Jr., D.O.09/19/2024 10:00 AM Dictation Location: [facility]--22 Transcribed By: MARV 09/19/24 1000 Dictated By: Marcial Patel Jr, DO 09/19/24 1000 Signed By: 09/19/24 1000 Normal [facility] Ambulatory Visit Summaryon 1 Ambulatory [...] [facility] [address] [place] [address]- [phone] Medications What How Much When Why Instructions [...] laser th (more content not included)... Normal [facility] Urology Office/Clinic Noteon 09-03-2024 Urology [...] Electrolyte panel 10/20/23 - wnl. KUB 01/11/24 [facility] - Kidneys are partially obscured, R>L. [...] [facility] [address], [place] [address] [phone] Additional Instructions: esthela De Oliveira ESWL Patient Education Laser Therapy for Kidney Stones, Care After Laser Therapy for Kidney Stones I, Adela Frias, personally scribed [...] prednisoLONE, Oral, (more content not included)... Normal [facility] Comment on above: Result Comment: Elec tronically Signed By: FLAVIO ONEAL, Zac De Oliveira\.br\Date and Time Signed: 09/03/24 11:02 EDT\.br\Electronically Co-Signed By: Adela Frias\.br\Date and Time Co-Signed: 09/03/24 11:01 EDT XR hip RT min 2V(w/wo pelvis )*on 08-29-2024 XR hip RT min 2V(w/wo pelvis)* [facility] [place] [place] [facility] [address] [place] [place] [address] XRay Report Signed Patient: Valentin Torre MR#: [id number] 31 : 1955 Acct:[id number] Age/Sex: 69 / M ADM Date: 08/29/24 Loc: [facility] Room: Type: [facility] Attending Dr: Jaime Murcia II, MD Copies [...] Patel Jr., D.O.08/29/2024 2:18 PM Dictation Location: [place] [address] Transcribed By: [facility] 08/29/24 141 Dictated By: Marcial Patel Jr, DO 08/29/24 141 Signed By: 08/29/24 141 Normal [facility] Alanine aminotransferase [En zymatic activity/volume] in Serum or PlasmaOrdered By: Romel Davis on 07-03-2024 ALT [Catalytic activity/Vol] 21 U/L Normal 7-52 [facility] Comment on above: Performed By: #### E SR, DIFF CBC, ADDONUAPLUS, CMP #### [facility] [address] [place] [address] [place] #### CH50, C4, C3 #### [facility] , Albumin [Mass/volume] in Ser um or Plasma by Bromocresol green (BCG) dye binding methoOrdered By: Romelsera Davis on 07-03-2024 Albumin BCG dye [Mass/Vol] 4.2 g/dL 3.5-5.7 [facility] Alkaline phosphatase [Enzyma tic activity/volume] in Serum or PlasmaOrdered By: Romel Davis on 07-03-2024 ALP [Catalytic activity/Vol] 85 U/L Normal 34-104 [facility] Comment on above: Result Comment: PERF ORMED BY: [place] [address] PATHOLOGIST CREASING MACHINE OPERATOR OLMAN ALBARRAN M.D. Performed By: #### E SR, DIFF CBC, ADDONUAPLUS, CMP #### [address] #### CH50, C4, C3 #### [facility] , Aspartate aminotransferase [ Enzymatic activity/volume] in Serum or PlasmaOrdered By: Romel Davis on 07-03-2024 AST [Catalytic activity/Vol] 16 U/L Normal 13-39 [facility] Comment on above: Performed By: #### E SR, DIFF CBC, ADDONUAPLUS, CMP #### [place] [address] [place] #### CH50, C4, C3 #### [facility] , Automated basophil %Ordered By: Romel Davis on 07-03-2024 Basophils/100 WBC (Bld) 0.5 % Normal . [facility] Comment on above: Performed By: #### E SR, DIFF CBC, ADDONUAPLUS, CMP #### [place] [address] [place] #### CH50, C4, C3 #### [facility] , Automated basophil countOrde red By: Romel Davis on 07-03-2024 Basophils (Bld) [#/Vol] 0.0 10*3/uL Normal 0.0-0.2 [facility] Comment on above: Performed By: #### E SR, DIFF CBC, ADDONUAPLUS, CMP #### [facility] [address] [place] [address] [place] #### CH50, C4, C3 #### [facility] , Automated blood monocyte cou ntOrdered By: Romel Davis on 07-03-2024 Monocytes (Bld) [#/Vol] 0.4 10*3/uL Normal 0.0-0.8 [facility] Comment on above: Performed By: #### E SR, DIFF CBC, ADDONUAPLUS, CMP #### [place] [address] [place] #### CH50, C4, C3 #### [facility] , Automated eosinophil %Ordere d By: Romel Davis on 07-03-2024 Eosinophils/100 WBC (Bld) 1.1 % Normal . [facility] Comment on above: Performed By: #### E SR, DIFF CBC, ADDONUAPLUS, CMP #### [facility] [address] [place] [address] [place] #### CH50, C4, C3 #### [facility] , Automated eosinophil countOr dered By: Romel Davis on 07-03-2024 Eosinophils (Bld) [#/Vol] 0.1 10*3/uL Normal 0.0-0.45 [facility] Comment on above: Performed By: #### E SR, DIFF CBC, ADDONUAPLUS, CMP #### [facility] [address] [place] [address] [place] #### CH50, C4, C3 #### [facility] , Automated monocyte %Ordered By: Romel Davis on 07-03-2024 Monocytes/100 WBC (Bld) 7.9 % Normal . [facility] Comment on above: Performed By: #### E SR, DIFF CBC, ADDONUAPLUS, CMP #### [facility] [address] [place] [address] [place] #### CH50, C4, C3 #### [facility] , Automated neutrophil %Ordere d By: Romel Davis on 07-03-2024 Neutrophils/100 WBC (Bld) 76.5 % Normal . [facility] Comment on above: Performed By: #### E SR, DIFF CBC, ADDONUAPLUS, CMP #### [facility] [address] [place] [address] [place] #### CH50, C4, C3 #### [facility] , Bacteria [Presence] in Urine by AutomatedOrdered By: Romel Mendezrow on 07-03-2024 Bacteria Auto Ql (U) None seen [HPF] None Seen [facility] Bilirubin Test strip Ql (U)O rdered By: Romel Davis on 07-03-2024 Bilirubin Ql (U) Negative Negative [facility] Bilirubin.total [Mass/volume ] in Serum or PlasmaOrdered By: Romel Davis on 07-03-2024 Bilirubin [Mass/Vol] 0.5 mg/dL Normal 0.3-1.0 [facility] Comment on above: Performed By: #### E SR, DIFF CBC, ADDONUAPLUS, CMP #### [place] [address] [place] #### CH50, C4, C3 #### [facility] , Calcium [Mass/volume] in Ser um or PlasmaOrdered By: Romel Davis on 07-03-2024 Calcium [Mass/Vol] 8.7 mg/dL Normal 8.6-10.3 [facility] Comment on above: Performed By: #### E SR, DIFF CBC, ADDONUAPLUS, CMP #### [facility] [address] [place] [address] [place] #### CH50, C4, C3 #### [facility] , Carbon dioxide, total [Moles /volume] in Serum or PlasmaOrdered By: Romel Davis on 07-03-2024 CO2 [Moles/Vol] 22.6 mmol/L Normal 21.0-31.0 [facility] Comment on above: Performed By: #### E SR, DIFF CBC, ADDONUAPLUS, CMP #### [address] #### CH50, C4, C3 #### [facility] , Chloride [Moles/volume] in S ace or PlasmaOrdered By: Romel Davis on 07-03-2024 Chloride [Moles/Vol] 105 mmol/L Normal 98-107 [facility] Comment on above: Performed By: #### E SR, DIFF CBC, ADDONUAPLUS, CMP #### [address] #### CH50, C4, C3 #### [facility] , Color of Urine by AutoOrdere d By: Romel Davis on 07-03-2024 Color (U) Yellow Normal Yellow [facility] Comment on above: Order Comment: Name Collection Type:: Clean-Voided Midstream Performed By: #### E SR, DIFF CBC, ADDONUAPLUS, CMP #### [address] #### CH50, C4, C3 #### [facility] , Complement C3on 07-03-2024 Complement C3 127 mg/dL Normal 82-167 [facility] Comment on above: Result Comment: Perf ormed at: CB - [facility] [place] [id number] [place], [place] [id number] Mobile Lounge Driver Or Operator: Richy Ardon PhD, Phone: [phone] Performed By: #### E SR, DIFF CBC, ADDONUAPLUS, CMP #### [facility] [address] [place] [address] [place] #### CH50, C4, C3 #### [facility] , Complement C4on 07-03-2024 Complement C4 15 mg/dL Normal 12-38 [facility] Comment on above: Result Comment: Perf ormed at: CB - [facility] [id number] Mobile Lounge Driver Or Operator: Richy Ardon PhD, Phone: [phone] PERFORMED BY: [place] [address] PATHOLOGIST CREASING MACHINE OPERATOR OLMAN ALBARRAN M.D. Performed By: #### E SR, DIFF CBC, ADDONUAPLUS, CMP #### [address] #### CH50, C4, C3 #### [facility] , Complement Total (CH50)on Complement Total (CH50) 56 Normal >41 [facility] Comment on above: Result Comment: [...] out of range values. Performed at: - [facility] [id number] Mobile Lounge Driver Or Operator: Richy Ardon PhD, Phone: [phone] PERFORMED BY: [place] [address] PATHOLOGIST CREASING MACHINE OPERATOR OLMAN ALBARRAN M.D. Performed By: #### E SR, DIFF CBC, ADDONUAPLUS, CMP #### [place] [address] [place] #### CH50, C4, C3 #### [facility] , Complete Blood Count Auto Di ffon 07-03-2024 Mean Corpuscular HGB Conc 34.2 g/dL Normal 32.5-35.6 [facility] Comment on above: Performed By: #### E SR, DIFF CBC, ADDONUAPLUS, CMP #### [place] [address] [place] #### CH50, C4, C3 #### [facility] , NRBC% 0.1 /100{WBC} Normal 0-0.5 [facility] Comment on above: Performed By: #### E SR, DIFF CBC, ADDONUAPLUS, CMP #### [address] #### CH50, C4, C3 #### [facility] , Comprehensive Metabolic Pane vivek 07-03-2024 Albumin [Mass/Vol] 4.2 g/dL Normal 3.5-5.7 [facility] Comment on above: Performed By: #### E SR, DIFF CBC, ADDONUAPLUS, CMP #### [address] #### CH50, C4, C3 #### [facility] , GFR/1.73 sq M.predicted MDRD (S/P/Bld) [Vol rate/Area] mL/min/{1.73_m2} Normal [facility] Comment on above: Performed By: #### E SR, DIFF CBC, ADDONUAPLUS, CMP #### [place] [address] [place] #### CH50, C4, C3 #### [facility] , Creatinine [Mass/volume] in Serum or PlasmaOrdered By: Romel Davis on 07-03-2024 Creatinine [Mass/Vol] 0.87 mg/dL Normal 0.70-1.30 [facility] Comment on above: Performed By: #### E SR, DIFF CBC, ADDONUAPLUS, CMP #### [place] [address] [place] #### CH50, C4, C3 #### [facility] , Dipstick and Microscopicon 0 07-03-2024 Bacteria,Urine None Seen Normal None Seen [facility] Comment on above: Order Comment: Name Collection Type:: Clean-Voided Midstream Performed By: #### E SR, DIFF CBC, ADDONUAPLUS, CMP #### [address] #### CH50, C4, C3 #### [facility] , Bilirubin,Urine Negative Normal Negative [facility] Comment on above: Order Comment: Name Collection Type:: Clean-Voided Midstream Performed By: #### E SR, DIFF CBC, ADDONUAPLUS, CMP #### [address] #### CH50, C4, C3 #### [facility] , Glucose Ql (U) Normal Normal Normal [facility] Comment on above: Order Comment: Name Collection Type:: Clean-Voided Midstream Performed By: #### E SR, DIFF CBC, ADDONUAPLUS, CMP #### [address] #### CH50, C4, C3 #### [facility] , Hyaline Casts,Urine 9-19 High 0-8 [facility] Comment on above: Order Comment: Name Collection Type:: Clean-Voided Midstream Performed By: #### E SR, DIFF CBC, ADDONUAPLUS, CMP #### [address] #### CH50, C4, C3 #### [facility] , Mucus,Urine 1+ Critically abnormal [facility] Comment on above: Order Comment: Name Collection Type:: Clean-Voided Midstream Result Comment: PERF ORMED BY: [place] [address] PATHOLOGIST CREASING MACHINE OPERATOR OLMAN ALBARRAN M.D. Performed By: #### E SR, DIFF CBC, ADDONUAPLUS, CMP #### [address] #### CH50, C4, C3 #### [facility] , Nitrite,Urine Negative Normal Negative [facility] Comment on above: Order Comment: Name Collection Type:: Clean-Voided Midstream Performed By: #### E SR, DIFF CBC, ADDONUAPLUS, CMP #### [address] #### CH50, C4, C3 #### [facility] , Occult Blood,Urine Negative Normal Negative [facility] Comment on above: Order Comment: Name Collection Type:: Clean-Voided Midstream Performed By: #### E SR, DIFF CBC, ADDONUAPLUS, CMP #### [address] #### CH50, C4, C3 #### [facility] , Protein,Urine Trace High Negative [facility] Comment on above: Order Comment: Name Collection Type:: Clean-Voided Midstream Performed By: #### E SR, DIFF CBC, ADDONUAPLUS, CMP #### [address] #### CH50, C4, C3 #### [facility] , RBC,Urine 1-2 Normal 0-4 [facility] Comment on above: Order Comment: Name Collection Type:: Clean-Voided Midstream Performed By: #### E SR, DIFF CBC, ADDONUAPLUS, CMP #### [address] #### CH50, C4, C3 #### [facility] , Specificy [place],Urine 1.027 Normal 1.001-1.03 0 [facility] Comment on above: Order Comment: Name Collection Type:: Clean-Voided Midstream Performed By: #### E SR, DIFF CBC, ADDONUAPLUS, CMP #### [place] [address] [place] #### CH50, C4, C3 #### [facility] , Squamous Epithelial Cell,Urine 1-2 Normal 0-2 [facility] Comment on above: Order Comment: Name Collection Type:: Clean-Voided Midstream Performed By: #### E SR, DIFF CBC, ADDONUAPLUS, CMP #### [address] #### CH50, C4, C3 #### [facility] , Urobilinogen,Urine 2 mg/dL High Normal [facility] Comment on above: Order Comment: Name Collection Type:: Clean-Voided Midstream Performed By: #### E SR, DIFF CBC, ADDONUAPLUS, CMP #### [address] #### CH50, C4, C3 #### [facility] , WBC,Urine 1-2 Normal 0-4 [facility] Comment on above: Order Comment: Name Collection Type:: Clean-Voided Midstream Performed By: #### E SR, DIFF CBC, ADDONUAPLUS, CMP #### [address] #### CH50, C4, C3 #### [facility] , Epithelial cells.squamous [# /area] in Urine sediment by Automated countOrdered By: Romel Davsi on 07-03-2024 Epithelial cells.squamous Auto (Urine sed) [#/Area] 1-2 [HPF] 0-2 [facility] Erythrocyte Sedimentation Ra bruno 07-03-2024 ESR (Bld) [Velocity] 7 mm/h Normal 0-19 [facility] Comment on above: Result Comment: PERF ORMED BY: [place] [address] PATHOLOGIST CREASING MACHINE OPERATOR OLMAN ALBARRAN M.D. Performed By: #### E SR, DIFF CBC, ADDONUAPLUS, CMP #### [address] #### CH50, C4, C3 #### [facility] , Erythrocyte distribution wid th [Ratio] by Automated countOrdered By: Romel Davis on 07-03-2024 Erythrocyte distribution width (RBC) [Ratio] 15.6 % High 12.0-14.8 [facility] Comment on above: Performed By: #### E SR, DIFF CBC, ADDONUAPLUS, CMP #### [facility] [address] [place] [address] [place] #### CH50, C4, C3 #### [facility] , Erythrocyte sedimentation ra te by Photometric methodOrdered By: Romel Davis on 07-03-2024 ESR Photometric method (Bld) [Velocity] 7 mm/hr 0-19 [facility] Erythrocytes [#/area] in Uri ne sediment by Automated countOrdered By: Romel Davis on 07-03-2024 RBC Auto (Urine sed) [#/Area] 1-2 [HPF] 0-4 [facility] Erythrocytes [#/volume] in B lood by Automated countOrdered By: Romel Davis on 07-03-2024 RBC (Bld) [#/Vol] 5.10 10*6/uL Normal 3.90-5.60 [facility] Comment on above: Performed By: #### E SR, DIFF CBC, ADDONUAPLUS, CMP #### [place] [address] [place] #### CH50, C4, C3 #### [facility] , Glucose [Mass/volume] in Ser um or PlasmaOrdered By: Romel Davis on 07-03-2024 Glucose [Mass/Vol] 136 mg/dL High 70-100 [facility] Comment on above: ADA recommended refe rence rangeRandom Glucose Reference Range is dependent on time and content of last meal. Glucose of more than 200 mg/dL in a nonstressed, ambulatory subject supports the diagnosis of Diabetes Mellitus. Result Comment: [place] om Glucose Reference Range is dependent on time and content of last meal. Glucose of more than 200 mg/dL in a nonstressed, ambulatory subject supports the diagnosis of Diabetes Mellitus. ADA recommended reference range Performed By: #### E SR, DIFF CBC, ADDONUAPLUS, CMP #### [place] [address] [place] #### CH50, C4, C3 #### [facility] , Glucose [Mass/volume] in Uri ne by Test stripOrdered By: Romel Davis on 07-03-2024 Glucose Test strip (U) [Mass/Vol] Normal mg/dL Normal [facility] Hematocrit [Volume Fraction] of Blood by Automated countOrdered By: Romel Davis on 07-03-2024 Hematocrit (Bld) [Volume fraction] 44.6 % Normal 38.8-50.0 [facility] Comment on above: Performed By: #### E SR, DIFF CBC, ADDONUAPLUS, CMP #### [address] #### CH50, C4, C3 #### [facility] , Hemoglobin Test strip Ql (U) Ordered By: Romel Davis on 07-03-2024 Hemoglobin Ql (U) Negative Negative [facility] Hemoglobin [Mass/volume] in BloodOrdered By: Romel Davis on 07-03-2024 Hemoglobin (Bld) [Mass/Vol] 15.3 g/dL Normal 13.0-17.0 [facility] Comment on above: Performed By: #### E SR, DIFF CBC, ADDONUAPLUS, CMP #### [place] [address] [place] #### CH50, C4, C3 #### [facility] , Hyaline casts [#/area] in Ur ine sediment by Automated countOrdered By: Romel Mendezrow on 07-03-2024 Hyaline casts Auto (Urine sed) [#/Area] 9-19 [LPF] High 0-8 [facility] Ketones [Presence] in Urine by Test stripOrdered By: Romel Mendezrow on 07-03-2024 Ketones Ql (U) Trace High Negative [facility] Comment on above: Order Comment: Name Collection Type:: Clean-Voided Midstream Performed By: #### E SR, DIFF CBC, ADDONUAPLUS, CMP #### [place] [address] [place] #### CH50, C4, C3 #### [facility] , Leukocyte esterase [Presence ] in Urine by Test stripOrdered By: Romel Mendezrow on 07-03-2024 Leukocyte esterase Test strip Ql (U) Negative Normal Negative [facility] Comment on above: Order Comment: Name Collection Type:: Clean-Voided Midstream Performed By: #### E SR, DIFF CBC, ADDONUAPLUS, CMP #### [place] [address] [place] #### CH50, C4, C3 #### [facility] , Leukocytes [#/area] in Urine sediment by Automated countOrdered By: Romel Davis on 07-03-2024 WBC Auto (Urine sed) [#/Area] 1-2 [HPF] 0-4 [facility] Leukocytes [#/volume] correc nat for nucleated erythrocytes in Blood by Automated counOrdered By: Romel Davis on 07-03-2024 WBC corrected for nucl RBC Auto (Bld) [#/Vol] 5.5 10*3/uL 4.1-10.5 [facility] Leukocytes [#/volume] in Blo od by Automated countOrdered By: Romel Ryan on 07-03-2024 WBC (Bld) [#/Vol] 5.5 10*3/uL Normal 4.1-10.5 [facility] Comment on above: Performed By: #### E SR, DIFF CBC, ADDONUAPLUS, CMP #### [place] [address] [place] #### CH50, C4, C3 #### [facility] , Lymphocytes [#/volume] in Bl ood by Automated countOrdered By: Romel Davis on 07-03-2024 Lymphocytes (Bld) [#/Vol] 0.8 10*3/uL Low 1.00-4.8 [facility] Comment on above: Performed By: #### E SR, DIFF CBC, ADDONUAPLUS, CMP #### [place] [address] [place] #### CH50, C4, C3 #### [facility] , Lymphocytes/100 leukocytes i n Blood by Automated countOrdered By: Romel Mendezrow on 07-03-2024 Lymphocytes/100 WBC (Bld) 14.0 % Normal . [facility] Comment on above: Performed By: #### E SR, DIFF CBC, ADDONUAPLUS, CMP #### [facility] [address] [place] [address] [place] #### CH50, C4, C3 #### [facility] , MCH [Entitic mass] by Automa nat countOrdered By: Romel Ryan on 07-03-2024 MCH (RBC) [Entitic mass] 30.0 pg Normal 27.5-35.2 [facility] Comment on above: Performed By: #### E SR, DIFF CBC, ADDONUAPLUS, CMP #### [place] [address] [place] #### CH50, C4, C3 #### [facility] , MCHC Auto (RBC) [Mass/Vol]Or dered By: Romelsera Davis on 07-03-2024 MCHC (RBC) [Mass/Vol] 34.2 g/dL 32.5-35.6 [facility] MCV [Entitic volume] by Auto mated countOrdered By: Romel Ryan on 07-03-2024 MCV (RBC) [Entitic vol] 87.5 fL Normal 83.5-101 [facility] Comment on above: Performed By: #### E SR, DIFF CBC, ADDONUAPLUS, CMP #### [place] [address] [place] #### CH50, C4, C3 #### [facility] , Mucus [Presence] in Urine by AutomatedOrdered By: Romel Davis on 07-03-2024 Mucus Auto Ql (U) 1+ [LPF] Abnormal [facility] Neutrophils [#/volume] in Bl ood by Automated countOrdered By: Romel Davis on 07-03-2024 Neutrophils (Bld) [#/Vol] 4.2 10*3/uL Normal 1.8-7.7 [facility] Comment on above: Performed By: #### E SR, DIFF CBC, ADDONUAPLUS, CMP #### [facility] [address] [place] [address] [place] #### CH50, C4, C3 #### [facility] , Nitrite Test strip Ql (U)Ord ered By: Romel Ryan on 07-03-2024 Nitrite Ql (U) Negative Negative [facility] No Panel InformationOrdered By: Romel Mendezrow on 07-03-2024 Estimated GFR (CKD-EPI) > 60.0 mL/Min [facility] Creatinine Clearance (Chem N/A [facility] Total Complement (CH50) 56 U/mL >41 [facility] Comment on above: Age Male [...] to determine out of range values.Performed at: [facility] [email or web address] [id number] Director: Richy Ardon PhD, Phone: [phone] Nucleated erythrocytes [Pres ence] in Blood by Automated countOrdered By: Romel Davis on 07-03-2024 Nucleated RBC Auto Ql (Bld) 0.1 /100{WBC} 0-0.5 [facility] Platelet mean volume [Entiti c volume] in Blood by Automated countOrdered By: Romel Davis on 07-03-2024 Platelet mean volume (Bld) [Entitic vol] 8.2 fL Normal 6.6-10.1 [facility] Comment on above: Performed By: #### E SR, DIFF CBC, ADDONUAPLUS, CMP #### [facility] [address] [place] [address] [place] #### CH50, C4, C3 #### [facility] , Platelets [#/volume] in Bloo d by Automated countOrdered By: Romel Davis on 07-03-2024 Platelets (Bld) [#/Vol] 160 10*3/uL Normal 150-450 [facility] Comment on above: Performed By: #### E SR, DIFF CBC, ADDONUAPLUS, CMP #### [facility] [address] [place] [address] [place] #### CH50, C4, C3 #### [facility] , Potassium [Moles/volume] in Serum or PlasmaOrdered By: Romel Davis on 07-03-2024 Potassium [Moles/Vol] 4.0 mmol/L Normal 3.5-5.1 [facility] Comment on above: Performed By: #### E SR, DIFF CBC, ADDONUAPLUS, CMP #### [place] [address] [place] #### CH50, C4, C3 #### [facility] , Protein Test strip (U) [Mass /Vol]Ordered By: Romel Mendezrow on 07-03-2024 Protein (U) [Mass/Vol] Trace mg/dL High Negative [facility] Protein [Mass/volume] in Ser um or PlasmaOrdered By: Romel Mendezrow on 07-03-2024 Protein [Mass/Vol] 6.3 g/dL Low 6.4-8.9 [facility] Comment on above: Performed By: #### E SR, DIFF CBC, ADDONUAPLUS, CMP #### [facility] [address] [place] [address] [place] #### CH50, C4, C3 #### [facility] , Serum globulin measurement b y calculation (mass/volume)Ordered By: Romel Mendzerow on 07-03-2024 Globulin (S) [Mass/Vol] 2.1 g/dL Normal [facility] Comment on above: Performed By: #### E SR, DIFF CBC, ADDONUAPLUS, CMP #### [facility] [address] [place] [address] [place] #### CH50, C4, C3 #### [facility] , Serum or plasma albumin/glob ulin mass ratioOrdered By: Romel Ryan on 07-03-2024 Albumin/Globulin [Mass ratio] 2.0 {ratio} Normal [facility] Comment on above: Performed By: #### E SR, DIFF CBC, ADDONUAPLUS, CMP #### [facility] [address] [place] [address] [place] #### CH50, C4, C3 #### [facility] , Serum or plasma anion gap de terminationOrdered By: Romelsera Davis on 07-03-2024 Anion gap [Moles/Vol] 13.4 mmol/L Normal 6.0-15.0 [facility] Comment on above: Performed By: #### E SR, DIFF CBC, ADDONUAPLUS, CMP #### [address] #### CH50, C4, C3 #### [facility] , Serum or plasma complement C 3 measurement (mass/volume)Ordered By: Romel Davis on 07-03-2024 Complement C3 [Mass/Vol] 127 mg/dL 82-167 [facility] Comment on above: Performed at: [employer] [place] [id number] Director: Richy Ardon PhD, Phone: [phone] Serum or plasma complement C 4 measurement (mass/volume)Ordered By: Romel Davis on 07-03-2024 Complement C4 [Mass/Vol] 15 mg/dL 12-38 [facility] Comment on above: Performed at: [employer] [place] [id number] Director: Richy Ardon PhD, Phone: [phone] Sodium [Moles/volume] in Ser um or PlasmaOrdered By: Romel Davis on 07-03-2024 Sodium [Moles/Vol] 137 mmol/L Normal 136-145 [facility] Comment on above: Performed By: #### E SR, DIFF CBC, ADDONUAPLUS, CMP #### [facility] [address] [place] [address] [place] #### CH50, C4, C3 #### [facility] , Specific gravity Test strip (U) [Rel density]Ordered By: Romel Davis on 07-03-2024 Specific gravity (U) [Rel density] 1.027 1.001-1.03 0 [facility] Urea nitrogen [Mass/volume] in Serum or PlasmaOrdered By: Romel Davis on 07-03-2024 Urea nitrogen [Mass/Vol] 17 mg/dL Normal 06-14 [facility] Comment on above: Performed By: #### E SR, DIFF CBC, ADDONUAPLUS, CMP #### [place] [address] [place] #### CH50, C4, C3 #### [facility] , Urine appearanceOrdered By: Romel Davis on 07-03-2024 Appearance (U) Clear Normal Clear [facility] Comment on above: Order Comment: Name Collection Type:: Clean-Voided Midstream Performed By: #### E SR, DIFF CBC, ADDONUAPLUS, CMP #### [facility] [address] [place] [address] [place] #### CH50, C4, C3 #### [facility] , Urobilinogen Test strip (U) [Mass/Vol]Ordered By: Romel Davis on 07-03-2024 Urobilinogen (U) [Mass/Vol] 2 mg/dL High Normal [facility] pH of Urine by Test stripOrd ered By: Romel Davis on 07-03-2024 pH (U) 6.5 [pH] Normal 5.0-9.0 [facility] Comment on above: Order Comment: Name Collection Type:: Clean-Voided Midstream Performed By: #### E SR, DIFF CBC, ADDONUAPLUS, CMP #### [facility] [address] [place] [address] [place] #### CH50, C4, C3 #### [facility] , Comprehensive metabolic pane vivek 06-14-2024 Albumin [Mass/Vol] 4.4 g/dL 3.2 - 5.3 g/dL [facility] ALP [Catalytic activity/Vol] 80 U/L 39 - 130 U/L [facility] ALT No additional P-5'-P [Catalytic activity/Vol] 24 U/L 0 - 40 U/L [facility] Anion gap [Moles/Vol] 9 mmol/L 5 - 15 mmol/L [facility] AST [Catalytic activity/Vol] 18 U/L 0 - 41 U/L [facility] Bilirubin [Mass/Vol] 0.5 mg/dL 0.3 - 1 .2 mg/dL [facility] Calcium [Mass/Vol] 9.6 mg/dL 8.5 - 10. 5 mg/dL [facility] Chloride [Moles/Vol] 107 mmol/L 98 - 10 9 mmol/L [facility] CO2 [Moles/Vol] 23 mmol/L 22 - 32 mmol/L [facility] Creatinine [Mass/Vol] 1.10 mg/dL 0.60 - 1.30 mg/dL [facility] Comment on above: METHOD TRACEABLE TO BACKUS HOSPITAL STANDARD eGFR (CKD-EPI)non-race dependent 74 - PINF [facility] Comment on above: Reported eGFR is based on the CKD-EPI 2020 equation that does not use a race coefficient. Glucose [Mass/Vol] 86 mg/dL 65 - 99 mg/dL [facility] Interpretation and review of laboratory results Abnormal [facility] Potassium [Moles/Vol] 4.0 mmol/L 3.5 - 5.0 mmol/L [facility] Protein [Mass/Vol] 6.9 g/dL 6.0 - 8.0 g/dL [facility] Sodium [Moles/Vol] 139 mmol/L 134 - 146 mmol/L [facility] Urea nitrogen [Mass/Vol] 33 mg/dL High 5 - 27 mg/dL [facility] Vivek 05-30-2024 L Specimen: [id number] Re ceived: 06/04/24682 Status: SOUT Req Num: [id number] Spec Type: Cytology Subm Dr: Carlos Eden DO Tissues: A FNA SLIDES NOPATH (RT THYROID) Procedures: Cyto Int and Re, PAPSTN/11 Age/ Patient Sex Location Account Attending Physician NichoValentin Alvino 69/M [place] [id number] Carlos Eden DO SPEC NUM: [id number] RECD: 06/04/24 STATUS: MAHSA REQ NUM: [id number] KATHRYN: 05/30/24- [facility] DR: Carlos Eden DO ENTERED: 06/04/[address]: SPEC TYPE: Cytology DEPT: CNG ENTERED BY: [id number] RECV BY: [id number] ORDERED: Cyto Int and Re, PAPSTN/11 ORDERED: Cyto Int and Re, PAPSTN/11 Pathological Diagnosis Thyroid nodule, right lobe, FNA: - Benign follicular nodule - [place] diagnostic category II Clinical Information Right Thyroid Nodule Gross Description Received fixed in Cytolyt is <1 ml pale pink cloudy fluid for cytology said to have been obtained as Right Thyroid Nodule . ThinPrep preparations are prepared for microscopic examination. Also received are 10 spray fixed smeared slides to be stained pap and a Veracyte vial stored at -20 for microscopic examination.(CC/in) CPT Codes 30152 Specimen: [id number] Received: 06/04/24 Status: RADHAKiera Reyez Num: [id number] Spec Type: Cytology Subm Dr: Carlos Eden DO Tissues: A FNA SLIDES NOPATH (RT THYROID) Procedures: Cyto Int and Re, PAPSTN/11 Patient: Valentin Torre [id number] (Continued) Signed (signature on file) Shaggy Vega MD 06/05/24 1500 Normal [facility] Alanine aminotransferase [En zymatic activity/volume] in Serum or PlasmaOrdered By: Romel Davis on 03-13-2024 ALT [Catalytic activity/Vol] 22 U/L 7-52 [facility] Albumin [Mass/volume] in Ser um or Plasma by Bromocresol green (BCG) dye binding methoOrdered By: Romel Davis on 03-13-2024 Albumin BCG dye [Mass/Vol] 3.7 g/dL 3.5-5.7 [facility] Alkaline phosphatase [Enzyma tic activity/volume] in Serum or PlasmaOrdered By: Romel Davis on 03-13-2024 ALP [Catalytic activity/Vol] 79 U/L 34-104 [facility] Aspartate aminotransferase [ Enzymatic activity/volume] in Serum or PlasmaOrdered By: Romel Davis on 03-13-2024 AST [Catalytic activity/Vol] 17 U/L 13-39 [facility] Automated erythrocytes count in urine sediment (number/area)Ordered By: Romel Davis on 03-13-2024 RBC Auto (Urine sed) [#/Area] 1-2 [HPF] 0-4 [facility] Automated leukocytes count i n urine sediment (number/area)Ordered By: Romel Davis on 03-13-2024 WBC Auto (Urine sed) [#/Area] 0-1 [HPF] 0-4 [facility] Basophils Auto (Bld) [#/Vol] Ordered By: Romel Davis on 03-13-2024 Basophils (Bld) [#/Vol] 0.0 10*3/uL 0.0-0.2 [facility] Basophils/100 WBC Auto (Bld) Ordered By: Romel Davis on 03-13-2024 Basophils/100 WBC (Bld) 0.5 % . [facility] Bilirubin Test strip Ql (U)O rdered By: Romel Davis on 03-13-2024 Bilirubin Ql (U) Negative Negative [facility] Bilirubin.total [Mass/volume ] in Serum or PlasmaOrdered By: Romel Davis on 03-13-2024 Bilirubin [Mass/Vol] 0.6 mg/dL 0.3-1.0 [facility] Calcium [Mass/volume] in Ser um or PlasmaOrdered By: Romel Davis on 03-13-2024 Calcium [Mass/Vol] 8.8 mg/dL 8.6-10.3 [facility] Carbon dioxide, total [Moles /volume] in Serum or PlasmaOrdered By: Romel Davis on 03-13-2024 CO2 [Moles/Vol] 25.0 mmol/L 21.0-31.0 [facility] Chloride [Moles/volume] in S ace or PlasmaOrdered By: Romel Davis on 03-13-2024 Chloride [Moles/Vol] 105 mmol/L 98-107 [facility] Color Auto (U)Ordered By: Bridgett Davis on 03-13-2024 Color (U) Dark yellow Abnormal Yellow [facility] Creatinine [Mass/volume] in Serum or PlasmaOrdered By: Romel Davis on 03-13-2024 Creatinine [Mass/Vol] 0.94 mg/dL 0.70-1.30 [facility] Eosinophils Auto (Bld) [#/Vo l]Ordered By: Romel Davis on 03-13-2024 Eosinophils (Bld) [#/Vol] 0.1 10*3/uL 0.0-0.45 [facility] Eosinophils/100 WBC Auto (Bl d)Ordered By: Romel Davis on 03-13-2024 Eosinophils/100 WBC (Bld) 1.3 % . [facility] Erythrocyte distribution wid th Auto (RBC) [Ratio]Ordered By: Romel Davis on 03-13-2024 Erythrocyte distribution width (RBC) [Ratio] 14.8 % 12.0-14.8 [facility] Erythrocyte sedimentation ra te by Photometric methodOrdered By: Romel Davis on 03-13-2024 ESR Photometric method (Bld) [Velocity] 29 mm/hr High 0-19 [facility] Globulin Calc (S) [Mass/Vol] Ordered By: Romel Davis on 03-13-2024 Globulin (S) [Mass/Vol] 2.3 g/dL [facility] Glucose [Mass/volume] in Ser um or PlasmaOrdered By: Romel Davis on 03-13-2024 Glucose [Mass/Vol] 124 mg/dL High 70-100 [facility] Comment on above: ADA recommended refe rence rangeRandom Glucose Reference Range is dependent on time and content of last meal. Glucose of more than 200 mg/dL in a nonstressed, ambulatory subject supports the diagnosis of Diabetes Mellitus. Hematocrit Auto (Bld) [Volum e fraction]Ordered By: Romel Davis on 03-13-2024 Hematocrit (Bld) [Volume fraction] 36.6 % Low 38.8-50.0 [facility] Hemoglobin [Mass/volume] in BloodOrdered By: Romel Davis on 03-13-2024 Hemoglobin (Bld) [Mass/Vol] 12.4 g/dL Low 13.0-17.0 [facility] Ketones Auto test strip (U) [Mass/Vol]Ordered By: Romel Davis on 03-13-2024 Ketones (U) [Mass/Vol] Trace High Negative [facility] - UrinalysisOrder ed By: Romel Davis on 03-13-2024 Hyaline casts LM Ql (Urine sed) 0-8 [LPF] 0-8 [facility] Leukocytes [#/volume] correc nat for nucleated erythrocytes in Blood by Automated counOrdered By: Romel Davis on 03-13-2024 WBC corrected for nucl RBC Auto (Bld) [#/Vol] 6.5 10*3/uL 4.1-10.5 [facility] Lymphocytes Auto (Bld) [#/Vo l]Ordered By: Romel Davis on 03-13-2024 Lymphocytes (Bld) [#/Vol] 0.8 10*3/uL Low 1.00-4.8 [facility] Lymphocytes/100 WBC Auto (Bl d)Ordered By: Romel Davis on 03-13-2024 Lymphocytes/100 WBC (Bld) 12.1 % . [facility] MCH Auto (RBC) [Entitic mass ]Ordered By: Romel Davis on 03-13-2024 MCH (RBC) [Entitic mass] 30.0 pg 27.5-35.2 [facility] MCHC Auto (RBC) [Mass/Vol]Or dered By: Romel Davis on 03-13-2024 MCHC (RBC) [Mass/Vol] 33.9 g/dL 32.5-35.6 [facility] MCV Auto (RBC) [Entitic vol] Ordered By: Romel Davis on 03-13-2024 MCV (RBC) [Entitic vol] 88.3 fL 83.5-101 [facility] Monocytes Auto (Bld) [#/Vol] Ordered By: Romel Davis on 03-13-2024 Monocytes (Bld) [#/Vol] 0.7 10*3/uL 0.0-0.8 [facility] Monocytes/100 WBC Auto (Bld) Ordered By: Romel Davis on 03-13-2024 Monocytes/100 WBC (Bld) 10.7 % . [facility] Neutrophils Auto (Bld) [#/Vo l]Ordered By: Romel Davis on 03-13-2024 Neutrophils (Bld) [#/Vol] 4.9 10*3/uL 1.8-7.7 [facility] Neutrophils/100 WBC Auto (Bl d)Ordered By: Romel Davis on 03-13-2024 Neutrophils/100 WBC (Bld) 75.4 % . [facility] Nitrite Test strip Ql (U)Ord ered By: Romel Davis on 03-13-2024 Nitrite Ql (U) Negative Negative [facility] No Panel InformationOrdered By: Romel Davis on 03-13-2024 Estimated GFR (CKD-EPI) > 60.0 mL/Min [facility] Creatinine Clearance (Chem N/A [facility] Total Complement (CH50) >60 U/mL >41 [facility] Comment on above: Age Male [...] to determine out of range values.Performed at: [facility] [id number] Director: Richy Ardon PhD, Phone: [phone] Nucleated erythrocytes [Pres ence] in Blood by Automated countOrdered By: Romel Davis on 03-13-2024 Nucleated RBC Auto Ql (Bld) 0.1 /100{WBC} 0-0.5 [facility] Platelet mean volume Auto (B ld) [Entitic vol]Ordered By: Romel Davis on 03-13-2024 Platelet mean volume (Bld) [Entitic vol] 8.0 fL 6.6-10.1 [facility] Platelets Auto (Bld) [#/Vol] Ordered By: Romel Davis on 03-13-2024 Platelets (Bld) [#/Vol] 258 10*3/uL 150-450 [facility] Potassium [Moles/volume] in Serum or PlasmaOrdered By: Romel Davis on 03-13-2024 Potassium [Moles/Vol] 4.3 mmol/L 3.5-5.1 [facility] Protein Auto test strip (U) [Mass/Vol]Ordered By: Romel Davis on 03-13-2024 Protein (U) [Mass/Vol] Negative Negative [facility] Protein [Mass/volume] in Ser um or PlasmaOrdered By: Romel Davis on 03-13-2024 Protein [Mass/Vol] 6.0 g/dL Low 6.4-8.9 [facility] RBC Auto (Bld) [#/Vol]Ordere d By: Romel Davis on 03-13-2024 RBC (Bld) [#/Vol] 4.14 10*6/uL 3.90-5.60 [facility] Serum or plasma albumin/glob ulin mass ratioOrdered By: Romel Davis on 03-13-2024 Albumin/Globulin [Mass ratio] 1.6 {ratio} [facility] Serum or plasma anion gap de terminationOrdered By: Romel Davis on 03-13-2024 Anion gap [Moles/Vol] 11.3 mmol/L 6.0-15.0 [facility] Serum or plasma complement C 3 measurement (mass/volume)Ordered By: Romel Davis on 03-13-2024 Complement C3 [Mass/Vol] 153 mg/dL 82-167 [facility] Comment on above: Performed at: [place] [id number] Director: Richy Ardon PhD, Phone: [phone] Serum or plasma complement C 4 measurement (mass/volume)Ordered By: Romel Davis on 03-13-2024 Complement C4 [Mass/Vol] 24 mg/dL 12-38 [facility] Sodium [Moles/volume] in Ser um or PlasmaOrdered By: Romle Davis on 03-13-2024 Sodium [Moles/Vol] 137 mmol/L 136-145 [facility] Specific gravity Auto test s trip (U) [Rel density]Ordered By: Romel Davis on 03-13-2024 Specific gravity (U) [Rel density] 1.024 1.001-1.03 0 [facility] Squamous epithelial cells de tection in urine sediment by light microscopyOrdered By: Romel Davis on 03-13-2024 Epithelial cells.squamous LM Ql (Urine sed) None seen [HPF] 0-2 [facility] Urea nitrogen [Mass/volume] in Serum or PlasmaOrdered By: Romel Davis on 03-13-2024 Urea nitrogen [Mass/Vol] 26 mg/dL High 7-25 [facility] Urine bacteria detection by automated methodOrdered By: Romel Davis on 03-13-2024 Bacteria Auto Ql (U) None seen None Seen [facility] Urine clarity by refractomet ry automatedOrdered By: Romel Davis on 03-13-2024 Clarity Refractometry automated (U) Clear Clear [facility] Urine glucose measurement by automated test strip (mass/volume)Ordered By: Romel Davis on 03-13-2024 Glucose Auto test strip (U) [Mass/Vol] Normal mg/dL Normal [facility] Urine hemoglobin detection b y automated test stripOrdered By: Romel Davis on 03-13-2024 Hemoglobin Auto test strip Ql (U) Negative Negative [facility] Urine leukocyte esterase det ection by automated test stripOrdered By: Romel Davis on 03-13-2024 Leukocyte esterase Auto test strip Ql (U) 1+ High Negative [facility] Urobilinogen Auto test strip (U) [Mass/Vol]Ordered By: Romel Davis on 03-13-2024 Urobilinogen (U) [Mass/Vol] Normal mg/dL Normal [facility] WBC Auto (Bld) [#/Vol]Ordere d By: Romel Davis on 03-13-2024 WBC (Bld) [#/Vol] 6.5 10*3/uL 4.1-10.5 [facility] pH Auto test strip (U)Ordere d By: Romel Davis on 03-13-2024 pH (U) 7.0 [pH] 5.0-9.0 [facility] Carbon dioxide, total [Moles /volume] in Serum or PlasmaOrdered By: Zac Muniz on 01-11-2024 CO2 [Moles/Vol] 22.4 mmol/L 21.0-31.0 [facility] Chloride [Moles/volume] in S ace or PlasmaOrdered By: Zac Muniz on 01-11-2024 Chloride [Moles/Vol] 104 mmol/L 98-107 [facility] Potassium [Moles/volume] in Serum or PlasmaOrdered By: Zac Muniz on 01-11-2024 Potassium [Moles/Vol] 4.4 mmol/L 3.5-5.1 [facility] Serum or plasma anion gap de terminationOrdered By: Zac Muniz on 01-11-2024 Anion gap [Moles/Vol] 13.0 mmol/L 6.0-15.0 [facility] Sodium [Moles/volume] in Ser um or PlasmaOrdered By: Zac Muniz on 01-11-2024 Sodium [Moles/Vol] 135 mmol/L 136-145 [facility] Alanine aminotransferase [En zymatic activity/volume] in Serum or PlasmaOrdered By: Edenilson Reinoso on 01-03-2024 ALT [Catalytic activity/Vol] 43 U/L 7-52 [facility] Albumin [Mass/volume] in Ser um or Plasma by Bromocresol green (BCG) dye binding methoOrdered By: Edenilson Reinoso on 01-03-2024 Albumin BCG dye [Mass/Vol] 4.6 g/dL 3.5-5.7 [facility] Alkaline phosphatase [Enzyma tic activity/volume] in Serum or PlasmaOrdered By: Edenilson Reinoso on 01-03-2024 ALP [Catalytic activity/Vol] 78 U/L 34-104 [facility] Aspartate aminotransferase [ Enzymatic activity/volume] in Serum or PlasmaOrdered By: Edenilson Reinoso on 01-03-2024 AST [Catalytic activity/Vol] 28 U/L 13-39 [facility] Automated erythrocytes count in urine sediment (number/area)Ordered By: Edenilson Reinoso on 01-03-2024 RBC Auto (Urine sed) [#/Area] 3-4 [HPF] 0-4 [facility] Automated leukocytes count i n urine sediment (number/area)Ordered By: Edenilson Reinoso on 01-03-2024 WBC Auto (Urine sed) [#/Area] 3-4 [HPF] 0-4 [facility] Basophils Auto (Bld) [#/Vol] Ordered By: Edenilson Reinoso on 01-03-2024 Basophils (Bld) [#/Vol] 0.0 10*3/uL 0.0-0.2 [facility] Basophils/100 WBC Auto (Bld) Ordered By: Edenilson Reinoso on 01-03-2024 Basophils/100 WBC (Bld) 0.2 % . [facility] Bilirubin Test strip Ql (U)O rdered By: Edenilson Reinoso on 01-03-2024 Bilirubin Ql (U) Negative Negative [facility] Bilirubin.total [Mass/volume ] in Serum or PlasmaOrdered By: Edenilson Reinoso on 01-03-2024 Bilirubin [Mass/Vol] 0.6 mg/dL 0.3-1.0 [facility] Calcium [Mass/volume] in Ser um or PlasmaOrdered By: Edenilson Reinoso on 01-03-2024 Calcium [Mass/Vol] 9.3 mg/dL 8.6-10.3 [facility] Carbon dioxide, total [Moles /volume] in Serum or PlasmaOrdered By: Edenilson Reinoso on 01-03-2024 CO2 [Moles/Vol] 20.7 mmol/L 21.0-31.0 [facility] Chloride [Moles/volume] in S ace or PlasmaOrdered By: Edenilson Reinoso on 01-03-2024 Chloride [Moles/Vol] 106 mmol/L 98-107 [facility] Color Auto (U)Ordered By: Chen Reinoso on 01-03-2024 Color (U) Dark yellow Yellow [facility] Creatinine [Mass/volume] in Serum or PlasmaOrdered By: Edenilson Reinoso on 01-03-2024 Creatinine [Mass/Vol] 1.14 mg/dL 0.70-1.30 [facility] Eosinophils Auto (Bld) [#/Vo l]Ordered By: Edenilson Reinoso on 01-03-2024 Eosinophils (Bld) [#/Vol] 0.0 10*3/uL 0.0-0.45 [facility] Eosinophils/100 WBC Auto (Bl d)Ordered By: Edenilson Reinoso on 01-03-2024 Eosinophils/100 WBC (Bld) 0.3 % . [facility] Erythrocyte distribution wid th Auto (RBC) [Ratio]Ordered By: Edenilson Reinoso on 01-03-2024 Erythrocyte distribution width (RBC) [Ratio] 14.7 % 12.0-14.8 [facility] Globulin Calc (S) [Mass/Vol] Ordered By: Edenilson Reinoso on 01-03-2024 Globulin (S) [Mass/Vol] 2.4 g/dL [facility] Glucose [Mass/volume] in Ser um or PlasmaOrdered By: Edenilson Reinoso on 01-03-2024 Glucose [Mass/Vol] 148 mg/dL 70-100 [facility] Comment on above: ADA recommended refe rence rangeRandom Glucose Reference Range is dependent on time and content of last meal. Glucose of more than 200 mg/dL in a nonstressed, ambulatory subject supports the diagnosis of Diabetes Mellitus. Hematocrit Auto (Bld) [Volum e fraction]Ordered By: Edenilson Reinoso on 01-03-2024 Hematocrit (Bld) [Volume fraction] 49.3 % 38.8-50.0 [facility] Hemoglobin [Mass/volume] in BloodOrdered By: Edenilson Reinoso on 01-03-2024 Hemoglobin (Bld) [Mass/Vol] 16.6 g/dL 13.0-17.0 [facility] Ketones Auto test strip (U) [Mass/Vol]Ordered By: Edenilson Reinoso on 01-03-2024 Ketones (U) [Mass/Vol] Trace Negative [facility] - UrinalysisOrder ed By: Edenilson Reinoso on 01-03-2024 Hyaline casts LM Ql (Urine sed) 0-8 [LPF] 0-8 [facility] Leukocytes [#/volume] correc nat for nucleated erythrocytes in Blood by Automated counOrdered By: Edenilson Reinoso on 01-03-2024 WBC corrected for nucl RBC Auto (Bld) [#/Vol] 16.9 10*3/uL 4.1-10.5 [facility] Lymphocytes Auto (Bld) [#/Vo l]Ordered By: Edenilson Reinoso on 01-03-2024 Lymphocytes (Bld) [#/Vol] 0.8 10*3/uL 1.00-4.8 [facility] Lymphocytes/100 WBC Auto (Bl d)Ordered By: Edenilson Reinoso on 01-03-2024 Lymphocytes/100 WBC (Bld) 4.8 % . [facility] MCH Auto (RBC) [Entitic mass ]Ordered By: Edenilson Reinoso on 01-03-2024 MCH (RBC) [Entitic mass] 30.1 pg 27.5-35.2 [facility] MCHC Auto (RBC) [Mass/Vol]Or dered By: Edenilson Reinoso on 01-03-2024 MCHC (RBC) [Mass/Vol] 33.7 g/dL 32.5-35.6 [facility] MCV Auto (RBC) [Entitic vol] Ordered By: Edenilson Reinoso on 01-03-2024 MCV (RBC) [Entitic vol] 89.3 fL 83.5-101 [facility] Monocyte distribution width [Entitic volume] in Blood by AutomatedOrdered By: Edenilson Reinoso on 01-03-2024 Monocyte distribution width Auto (Bld) [Entitic vol] 20.70 % 0.00-20.00 [facility] Comment on above: For adults in ED, MD W > 20.0 may be associated with a higher risk of sepsis during the first 12 hrs of hospital admission Monocytes Auto (Bld) [#/Vol] Ordered By: Edenilson Reinoso on 01-03-2024 Monocytes (Bld) [#/Vol] 1.1 10*3/uL 0.0-0.8 [facility] Monocytes/100 WBC Auto (Bld) Ordered By: Edenilson Reinoso on 01-03-2024 Monocytes/100 WBC (Bld) 6.7 % . [facility] Neutrophils Auto (Bld) [#/Vo l]Ordered By: Edenilson Reinoso on 01-03-2024 Neutrophils (Bld) [#/Vol] 14.9 10*3/uL 1.8-7.7 [facility] Neutrophils/100 WBC Auto (Bl d)Ordered By: Edenilson Reinoso on 01-03-2024 Neutrophils/100 WBC (Bld) 88.0 % . [facility] Nitrite Test strip Ql (U)Ord ered By: Edenilson Reinoso on 01-03-2024 Nitrite Ql (U) Negative Negative [facility] No Panel InformationOrdered By: Edenilson Reinoso on 01-03-2024 Estimated GFR (CKD-EPI) > 60.0 mL/Min [facility] Creatinine Clearance (Chem 73.17 [facility] Nucleated erythrocytes [Pres ence] in Blood by Automated countOrdered By: Edenilson Reinoso on 01-03-2024 Nucleated RBC Auto Ql (Bld) 0.3 /100{WBC} 0-0.5 [facility] Platelet mean volume Auto (B ld) [Entitic vol]Ordered By: Edenilson Reinoso on 01-03-2024 Platelet mean volume (Bld) [Entitic vol] 8.5 fL 6.6-10.1 [facility] Platelets Auto (Bld) [#/Vol] Ordered By: Edenilson Reinoso on 01-03-2024 Platelets (Bld) [#/Vol] 229 10*3/uL 150-450 [facility] Potassium [Moles/volume] in Serum or PlasmaOrdered By: Edenilson Reinoso on 01-03-2024 Potassium [Moles/Vol] 4.4 mmol/L 3.5-5.1 [facility] Protein Auto test strip (U) [Mass/Vol]Ordered By: Edenilson Reinoso on 01-03-2024 Protein (U) [Mass/Vol] Trace mg/dL Negative [facility] Protein [Mass/volume] in Ser um or PlasmaOrdered By: Edenilson Reinoso on 01-03-2024 Protein [Mass/Vol] 7.0 g/dL 6.4-8.9 [facility] RBC Auto (Bld) [#/Vol]Ordere d By: Edenilson Reinoso on 01-03-2024 RBC (Bld) [#/Vol] 5.52 10*6/uL 3.90-5.60 [facility] Serum or plasma albumin/glob ulin mass ratioOrdered By: Edenilson Reinoso on 01-03-2024 Albumin/Globulin [Mass ratio] 1.9 {ratio} [facility] Serum or plasma anion gap de terminationOrdered By: Edenilson Reinoso on 01-03-2024 Anion gap [Moles/Vol] 15.7 mmol/L 6.0-15.0 [facility] Sodium [Moles/volume] in Ser um or PlasmaOrdered By: Edenilson Reinoso on 01-03-2024 Sodium [Moles/Vol] 138 mmol/L 136-145 [facility] Specific gravity Auto test s trip (U) [Rel density]Ordered By: Edenilson Reinoso on 01-03-2024 Specific gravity (U) [Rel density] 1.034 1.001-1.03 0 [facility] Squamous epithelial cells de tection in urine sediment by light microscopyOrdered By: Edenilson Reinoso on 01-03-2024 Epithelial cells.squamous LM Ql (Urine sed) 0-1 [HPF] 0-2 [facility] Troponin I.cardiac [Mass/vol ume] in Serum or Plasma by Detection limit <= 0.01 ng/Ordered By: Edenilson Reinoso on 01-03-2024 Troponin I.cardiac DL <= 0.01 ng/mL [Mass/Vol] 7.2 pg/mL 0.0-20.0 [facility] Urea nitrogen [Mass/volume] in Serum or PlasmaOrdered By: Edenilson Reinoso on 01-03-2024 Urea nitrogen [Mass/Vol] 21 mg/dL 7-25 [facility] Urine bacteria detection by automated methodOrdered By: Edenilson Reinoso on 01-03-2024 Bacteria Auto Ql (U) None seen None Seen [facility] Urine clarity by refractomet ry automatedOrdered By: Edenilson Reinoso on 01-03-2024 Clarity Refractometry automated (U) Cloudy Clear [facility] Urine glucose measurement by automated test strip (mass/volume)Ordered By: Edenilson Reinoso on 01-03-2024 Glucose Auto test strip (U) [Mass/Vol] Normal mg/dL Normal [facility] Urine hemoglobin detection b y automated test stripOrdered By: Edenilson Reinoso on 01-03-2024 Hemoglobin Auto test strip Ql (U) Negative Negative [facility] Urine leukocyte esterase det ection by automated test stripOrdered By: Edenilson Reinoso on 01-03-2024 Leukocyte esterase Auto test strip Ql (U) Negative Negative [facility] Urobilinogen Auto test strip (U) [Mass/Vol]Ordered By: Edenilson Reinoso on 01-03-2024 Urobilinogen (U) [Mass/Vol] Normal mg/dL Normal [facility] WBC Auto (Bld) [#/Vol]Ordere d By: Edenilson Reinoso on 01-03-2024 WBC (Bld) [#/Vol] 16.9 10*3/uL 4.1-10.5 [facility] pH Auto test strip (U)Ordere d By: Edenilson Reinoso on 01-03-2024 pH (U) 5.0 [pH] 5.0-9.0 [facility] COMPREHENSIVE METABOLIC PANE Vivek 12-14-2023 Albumin [Mass/Vol] 4.5 g/dL Normal 3.2-5.3 [facility] Comment on above: Performed By: #### Dannie MALDONADO, [id number] #### [facility] ([id number]) [address], [address] [place] [address] ALP [Catalytic activity/Vol] 83 U/L Normal 39-130 [facility] Comment on above: Performed By: #### Dannie MALDONADO [id number] #### [facility] ([id number]) [address], [address] [place] [address] ALT [Catalytic activity/Vol] 25 U/L Normal 0-40 [facility] Comment on above: Performed By: #### Dannie MALDONADO [id number] #### [facility] ([id number]) [address], [address] [place] [address] Anion gap [Moles/Vol] 11 mmol/L Normal 5-15 [facility] Comment on above: Performed By: #### Dannie MALDONADO, 80464-5 #### [facility] ([id number]) [address], [address] [place] [address] AST [Catalytic activity/Vol] 18 U/L Normal 0-41 [facility] Comment on above: Performed By: #### Dannie MALDONADO [id number] #### [facility] ([id number]) [address], [address] [place] [address] Bilirubin [Mass/Vol] 0.8 mg/dL Normal 0.3-1.2 [facility] Comment on above: Performed By: #### Dannie MALDONADO, [id number] #### [facility] ([id number]) [address], [address] [place] [address] Calcium [Mass/Vol] 9.1 mg/dL Normal 8.5-10.5 [facility] Comment on above: Performed By: #### Dannie MALDONADO, 97233-1 #### [facility] ([id number]) [address], [address] [place] [address] Chloride [Moles/Vol] 105 mmol/L Normal 98-109 [facility] Comment on above: Performed By: #### Dannie MALDONADO, 12026-0 #### [facility] ([id number]) [address], [address] [place] [address] CO2 [Moles/Vol] 23 mmol/L Normal 22-32 [facility] Comment on above: Performed By: #### Dannie MALDONADO, 01493-5 #### [facility] ([id number]) [address], [address] [place] [address] Creatinine [Mass/Vol] 0.89 mg/dL Normal 0.60-1.30 [facility] Comment on above: Result Comment: METH OD TRACEABLE TO IDMS STANDARD Performed By: #### Dannie MALDONADO, 81597-8 #### [facility] ([id number]) [address], [address] [place] [address] eGFR (CKD-EPI) NON-RACE DEPENDENT >90 Normal >59 [facility] Comment on above: Result Comment: Reported eGFR is based on the CKD-EPI 2020 equation that does not use a race coefficient. Performed By: #### Dannie MALDONADO, 04634-9 #### [facility] ([id number]) [address], [address] [place] [address] Glucose [Mass/Vol] 96 mg/dL Normal 65-99 [facility] Comment on above: Performed By: #### Dannie MALDONADO, 06650-6 #### [facility] ([id number]) [address], [address] [place] [address] Potassium [Moles/Vol] 4.0 mmol/L Normal 3.5-5.0 [facility] Comment on above: Performed By: #### C ERICA, 73673-9 #### [facility] ([id number]) [address], [address] [place] [address] Protein [Mass/Vol] 7.1 g/dL Normal 6.0-8.0 [facility] Comment on above: Performed By: #### Dannie MALDONADO, 69493-3 #### [facility] ([id number]) [address], [address] [place] [address] Sodium [Moles/Vol] 139 mmol/L Normal 134-146 [facility] Comment on above: Performed By: #### Dannie MALDONADO, 55742-1 #### [facility] ([id number]) [address], [address] [place] [address] Urea nitrogen [Mass/Vol] 25 mg/dL Normal 5-27 [facility] Comment on above: Performed By: #### Dannie MALDONADO, 97740-8 #### [facility] ([id number]) [address], [address] [place] [address] Comprehensive metabolic pane vivek 12-14-2023 Albumin [Mass/Vol] 4.5 g/dL 3.2 - 5.3 g/dL [facility] ALP [Catalytic activity/Vol] 83 U/L 39 - 130 U/L [facility] ALT No additional P-5'-P [Catalytic activity/Vol] 25 U/L 0 - 40 U/L [facility] Anion gap [Moles/Vol] 11 mmol/L 5 - 15 mmol/L [facility] AST [Catalytic activity/Vol] 18 U/L 0 - 41 U/L [facility] Bilirubin [Mass/Vol] 0.8 mg/dL 0.3 - 1 .2 mg/dL [facility] Calcium [Mass/Vol] 9.1 mg/dL 8.5 - 10. 5 mg/dL [facility] Chloride [Moles/Vol] 105 mmol/L 98 - 10 9 mmol/L [facility] CO2 [Moles/Vol] 23 mmol/L 22 - 32 mmol/L [facility] Creatinine [Mass/Vol] 0.89 mg/dL 0.60 - 1.30 mg/dL [facility] Comment on above: METHOD TRACEABLE TO BACKUS HOSPITAL STANDARD eGFR (CKD-EPI)non-race dependent - PINF [facility] Comment on above: Reported eGFR is based on the CKD-EPI 2020 equation that does not use a race coefficient. Glucose [Mass/Vol] 96 mg/dL 65 - 99 mg/dL [facility] Potassium [Moles/Vol] 4.0 mmol/L 3.5 - 5.0 mmol/L [facility] Protein [Mass/Vol] 7.1 g/dL 6.0 - 8.0 g/dL [facility] Sodium [Moles/Vol] 139 mmol/L 134 - 146 mmol/L [facility] Urea nitrogen [Mass/Vol] 25 mg/dL 5 - 27 mg/dL [facility] Lipid 1996 panelon 4 Cholesterol [Mass/Vol] 124 mg/dL Low 150 - 200 mg/dL [facility] Cholesterol in HDL [Mass/Vol] 46 mg/dL 39 - PINF mg/dL [facility] Comment on above: HDL <40 mg/dL - High Risk HDL > or = 40mg/dL- Desirable HDL >60 mg/dL - Negative Risk Cholesterol in LDL [Mass/Vol] 57 mg/dL NINF - 130 mg/dL [facility] Comment on above: LDL <100 mg/dL - Desirable LDL >160 mg/dL - High Risk Cholesterol in VLDL [Mass/Vol] 21 mg/dL 0 - 30 mg/dL [facility] Cholesterol.total/Chol esterol in HDL [Mass ratio] 2.7 {ratio} 1.0 - 5.0 [facility] Interpretation and review of laboratory results Abnormal [facility] Triglyceride [Mass/Vol] 103 mg/dL 27 - 150 mg/dL [facility] Cholesterol [Mass/Vol] 124 mg/dL Low 150-200 [facility] Comment on above: Performed By: #### Dannie MALDONADO, 79059-3 #### [facility] ([id number]) [address], [address] [place] [address] Cholesterol in HDL [Mass/Vol] 46 mg/dL Normal >39 [facility] Comment on above: Result Comment: HDL <40 mg/dL - High Risk HDL > or = 40mg/dL- Desirable HDL >60 mg/dL - Negative Risk Performed By: #### Dannie MALDONADO, 30644-3 #### [facility] ([id number]) [address], [address] [place] [address] Cholesterol in LDL [Mass/Vol] 57 mg/dL Normal <130 [facility] Comment on above: Result Comment: LDL <100 mg/dL - Desirable LDL >160 mg/dL - High Risk Performed By: #### Dannie MALDONADO, 46739-1 #### [facility] ([id number]) [address], [address] [place] [address] Cholesterol in VLDL [Mass/Vol] 21 mg/dL Normal 0-30 [facility] Comment on above: Performed By: #### Dannie MALDONADO, 25625-8 #### [facility] ([id number]) [address], [address] [place] [address] CHOLESTEROL:HDL 2.7 Normal 1.0-5.0 [facility] Comment on above: Performed By: #### Dannie MALDONADO, 70542-1 #### [facility] ([id number]) [address], [address] [place] [address] Triglyceride [Mass/Vol] 103 mg/dL Normal 27-150 [facility] Comment on above: Performed By: #### [place], 58697-2 #### [facility] ([id number]) [address], [address] [place] [address] No Panel Informationon 12-14 [facility] Alanine aminotransferase [En zymatic activity/volume] in Serum or PlasmaOrdered By: Romel Davis on 12-08-2023 ALT [Catalytic activity/Vol] 31 U/L 7-52 [facility] Albumin [Mass/volume] in Ser um or Plasma by Bromocresol green (BCG) dye binding methoOrdered By: Rmoel Davis on 12-08-2023 Albumin BCG dye [Mass/Vol] 4.3 g/dL 3.5-5.7 [facility] Alkaline phosphatase [Enzyma tic activity/volume] in Serum or PlasmaOrdered By: Romel Davis on 12-08-2023 ALP [Catalytic activity/Vol] 80 U/L 34-104 [facility] Aspartate aminotransferase [ Enzymatic activity/volume] in Serum or PlasmaOrdered By: Romel Davis on 12-08-2023 AST [Catalytic activity/Vol] 19 U/L 13-39 [facility] Automated erythrocytes count in urine sediment (number/area)Ordered By: Romel Davis on 12-08-2023 RBC Auto (Urine sed) [#/Area] 1-2 [HPF] 0-4 [facility] Automated leukocytes count i n urine sediment (number/area)Ordered By: Romel Davis on 12-08-2023 WBC Auto (Urine sed) [#/Area] 0-1 [HPF] 0-4 [facility] Basophils Auto (Bld) [#/Vol] Ordered By: Romel Davis on 12-08-2023 Basophils (Bld) [#/Vol] 0.0 10*3/uL 0.0-0.2 [facility] Basophils/100 WBC Auto (Bld) Ordered By: Romel Davis on 12-08-2023 Basophils/100 WBC (Bld) 0.5 % . [facility] Bilirubin Auto test strip Ql (U)Ordered By: Romel Davis on 12-08-2023 Bilirubin Ql (U) Negative Negative [facility] Bilirubin.total [Mass/volume ] in Serum or PlasmaOrdered By: Roeml Davis on 12-08-2023 Bilirubin [Mass/Vol] 0.6 mg/dL 0.3-1.0 [facility] Calcium [Mass/volume] in Ser um or PlasmaOrdered By: Romel Davis on 12-08-2023 Calcium [Mass/Vol] 9.4 mg/dL 8.6-10.3 [facility] Carbon dioxide, total [Moles /volume] in Serum or PlasmaOrdered By: Romel Davis on 12-08-2023 CO2 [Moles/Vol] 25.7 mmol/L 21.0-31.0 [facility] Chloride [Moles/volume] in S ace or PlasmaOrdered By: Romel Davis on 12-08-2023 Chloride [Moles/Vol] 105 mmol/L 98-107 [facility] Creatinine [Mass/volume] in Serum or PlasmaOrdered By: Romel Davis on 12-08-2023 Creatinine [Mass/Vol] 1.00 mg/dL 0.70-1.30 [facility] Eosinophils Auto (Bld) [#/Vo l]Ordered By: Romel Davis on 12-08-2023 Eosinophils (Bld) [#/Vol] 0.1 10*3/uL 0.0-0.45 [facility] Eosinophils/100 WBC Auto (Bl d)Ordered By: Romel Davis on 12-08-2023 Eosinophils/100 WBC (Bld) 1.2 % . [facility] Erythrocyte distribution wid th Auto (RBC) [Ratio]Ordered By: Romel Davis on 12-08-2023 Erythrocyte distribution width (RBC) [Ratio] 14.5 % 12.0-14.8 [facility] Erythrocyte sedimentation ra te by Photometric methodOrdered By: Romel Davis on 12-08-2023 ESR Photometric method (Bld) [Velocity] 5 mm/hr 0-19 [facility] Globulin Calc (S) [Mass/Vol] Ordered By: Romel Davis on 12-08-2023 Globulin (S) [Mass/Vol] 2.0 g/dL [facility] Glucose [Mass/volume] in Ser um or PlasmaOrdered By: Romel Davis on 12-08-2023 Glucose [Mass/Vol] 88 mg/dL 70-100 [facility] Comment on above: ADA recommended refe rence rangeRandom Glucose Reference Range is dependent on time and content of last meal. Glucose of more than 200 mg/dL in a nonstressed, ambulatory subject supports the diagnosis of Diabetes Mellitus. Hematocrit Auto (Bld) [Volum e fraction]Ordered By: Romel Davis on 12-08-2023 Hematocrit (Bld) [Volume fraction] 46.1 % 38.8-50.0 [facility] Hemoglobin [Mass/volume] in BloodOrdered By: Romel Davis on 12-08-2023 Hemoglobin (Bld) [Mass/Vol] 15.9 g/dL 13.0-17.0 [facility] Ketones Auto test strip (U) [Mass/Vol]Ordered By: Romel Davis on 12-08-2023 Ketones (U) [Mass/Vol] Negative Negative [facility] - UrinalysisOrder ed By: Romel Davis on 12-08-2023 Hyaline casts LM Ql (Urine sed) 0-8 [LPF] 0-8 [facility] Leukocytes [#/volume] correc nat for nucleated erythrocytes in Blood by Automated counOrdered By: Romel Davis on 12-08-2023 WBC corrected for nucl RBC Auto (Bld) [#/Vol] 6.4 10*3/uL 4.1-10.5 [facility] Lymphocytes Auto (Bld) [#/Vo l]Ordered By: Romel Davis on 12-08-2023 Lymphocytes (Bld) [#/Vol] 1.0 10*3/uL 1.00-4.8 [facility] Lymphocytes/100 WBC Auto (Bl d)Ordered By: Romel Davis on 12-08-2023 Lymphocytes/100 WBC (Bld) 15.1 % . [facility] MCH Auto (RBC) [Entitic mass ]Ordered By: Romel Davis on 12-08-2023 MCH (RBC) [Entitic mass] 30.7 pg 27.5-35.2 [facility] MCHC Auto (RBC) [Mass/Vol]Or dered By: Romel Davis on 12-08-2023 MCHC (RBC) [Mass/Vol] 34.5 g/dL 32.5-35.6 [facility] MCV Auto (RBC) [Entitic vol] Ordered By: Romel Davis on 12-08-2023 MCV (RBC) [Entitic vol] 89.0 fL 83.5-101 [facility] Monocytes Auto (Bld) [#/Vol] Ordered By: Romel Davis on 12-08-2023 Monocytes (Bld) [#/Vol] 0.9 10*3/uL 0.0-0.8 [facility] Monocytes/100 WBC Auto (Bld) Ordered By: Romel Davis on 12-08-2023 Monocytes/100 WBC (Bld) 14.0 % . [facility] Neutrophils Auto (Bld) [#/Vo l]Ordered By: Romel Davis on 12-08-2023 Neutrophils (Bld) [#/Vol] 4.4 10*3/uL 1.8-7.7 [facility] Neutrophils/100 WBC Auto (Bl d)Ordered By: Romel Davis on 12-08-2023 Neutrophils/100 WBC (Bld) 69.2 % . [facility] No Panel InformationOrdered By: Romel Davis on 12-08-2023 Estimated GFR (CKD-EPI) > 60.0 mL/Min [facility] Creatinine Clearance (Chem N/A [facility] Total Complement (CH50) 58 U/mL >41 [facility] Comment on above: Age Male [...] determine out of range values.Performed at: - [facility] [id number] [place], [place] [id number] Director: Richy Ardon PhD, Phone: [phone] Nucleated erythrocytes [Pres ence] in Blood by Automated countOrdered By: Romel Davis on 12-08-2023 Nucleated RBC Auto Ql (Bld) 0.1 /100{WBC} 0-0.5 [facility] Platelet mean volume Auto (B ld) [Entitic vol]Ordered By: Romel Davis on 12-08-2023 Platelet mean volume (Bld) [Entitic vol] 8.7 fL 6.6-10.1 [facility] Platelets Auto (Bld) [#/Vol] Ordered By: Romel Davis on 12-08-2023 Platelets (Bld) [#/Vol] 203 10*3/uL 150-450 [facility] Potassium [Moles/volume] in Serum or PlasmaOrdered By: Romel Davis on 12-08-2023 Potassium [Moles/Vol] 4.3 mmol/L 3.5-5.1 [facility] Protein Auto test strip (U) [Mass/Vol]Ordered By: Romel Davis on 12-08-2023 Protein (U) [Mass/Vol] Negative Negative [facility] Protein [Mass/volume] in Ser um or PlasmaOrdered By: Romel Davis on 12-08-2023 Protein [Mass/Vol] 6.3 g/dL 6.4-8.9 [facility] RBC Auto (Bld) [#/Vol]Ordere d By: Romel Davis on 12-08-2023 RBC (Bld) [#/Vol] 5.18 10*6/uL 3.90-5.60 [facility] Serum or plasma albumin/glob ulin mass ratioOrdered By: Romel Davis on 12-08-2023 Albumin/Globulin [Mass ratio] 2.2 {ratio} [facility] Serum or plasma anion gap de terminationOrdered By: Romel Davis on 12-08-2023 Anion gap [Moles/Vol] 10.6 mmol/L 6.0-15.0 [facility] Serum or plasma complement C 3 measurement (mass/volume)Ordered By: Romel Davis on 12-08-2023 Complement C3 [Mass/Vol] 122 mg/dL 82-167 [facility] Comment on above: Performed at: [address] [id number] Director: Richy Ardon PhD, Phone: [phone] Serum or plasma complement C 4 measurement (mass/volume)Ordered By: Romel Davis on 12-08-2023 Complement C4 [Mass/Vol] 14 mg/dL 12-38 [facility] Sodium [Moles/volume] in Ser um or PlasmaOrdered By: Romel Davis on 12-08-2023 Sodium [Moles/Vol] 137 mmol/L 136-145 [facility] Squamous epithelial cells de tection in urine sediment by light microscopyOrdered By: Romel Davis on 12-08-2023 Epithelial cells.squamous LM Ql (Urine sed) None seen [HPF] 0-2 [facility] Urea nitrogen [Mass/volume] in Serum or PlasmaOrdered By: Romel Davis on 12-08-2023 Urea nitrogen [Mass/Vol] 27 mg/dL 7-25 [facility] Urine appearanceOrdered By: Romel Davis on 12-08-2023 Appearance (U) Clear Clear [facility] Urine bacteria detection by automated methodOrdered By: Romel Davis on 12-08-2023 Bacteria Auto Ql (U) None seen None Seen [facility] Urine colorOrdered By: Manuel Davis on 12-08-2023 Color (U) Yellow Yellow [facility] Urine glucose measurement by automated test strip (mass/volume)Ordered By: Romel Davis on 12-08-2023 Glucose Auto test strip (U) [Mass/Vol] Normal mg/dL Normal [facility] Urine hemoglobin detection b y automated test stripOrdered By: Romel Davis on 12-08-2023 Hemoglobin Auto test strip Ql (U) Negative Negative [facility] Urine leukocyte esterase det ection by automated test stripOrdered By: Romel Davis on 12-08-2023 Leukocyte esterase Auto test strip Ql (U) Negative Negative [facility] Urine nitrite detection by a utomated test stripOrdered By: Romel Davis on 12-08-2023 Nitrite Auto test strip Ql (U) Negative Negative [facility] Urobilinogen Auto test strip (U) [Mass/Vol]Ordered By: Romel Davis on 12-08-2023 Urobilinogen (U) [Mass/Vol] Normal mg/dL Normal [facility] WBC Auto (Bld) [#/Vol]Ordere d By: Romel Davis on 12-08-2023 WBC (Bld) [#/Vol] 6.4 10*3/uL 4.1-10.5 [facility] pH Auto test strip (U)Ordere d By: Romel Davis on 12-08-2023 pH (U) 1.025 [pH] 1.001-1.03 0 [facility] pH (U) 7.0 [pH] 5.0-9.0 [facility] Carbon dioxide, total [Moles /volume] in Serum or PlasmaOrdered By: Zac Muniz on 10-20-2023 CO2 [Moles/Vol] 23.8 mmol/L 21.0-31.0 [facility] Chloride [Moles/volume] in S ace or PlasmaOrdered By: Zac Muniz on 10-20-2023 Chloride [Moles/Vol] 107 mmol/L 98-107 [facility] Potassium [Moles/volume] in Serum or PlasmaOrdered By: Zac Muniz on 10-20-2023 Potassium [Moles/Vol] 4.1 mmol/L 3.5-5.1 [facility] Serum or plasma anion gap de terminationOrdered By: Zac Muniz on 10-20-2023 Anion gap [Moles/Vol] 12.3 mmol/L 6.0-15.0 [facility] Sodium [Moles/volume] in Ser um or PlasmaOrdered By: Zac Muniz on 10-20-2023 Sodium [Moles/Vol] 139 mmol/L 136-145 [facility] Alanine aminotransferase [En zymatic activity/volume] in Serum or PlasmaOrdered By: Romel Davis on 09-05-2023 ALT [Catalytic activity/Vol] 29 U/L 7-52 [facility] Albumin [Mass/volume] in Ser um or Plasma by Bromocresol green (BCG) dye binding methoOrdered By: Romel Davis on 09-05-2023 Albumin BCG dye [Mass/Vol] 4.2 g/dL 3.5-5.7 [facility] Alkaline phosphatase [Enzyma tic activity/volume] in Serum or PlasmaOrdered By: Romel Davis on 09-05-2023 ALP [Catalytic activity/Vol] 83 U/L 34-104 [facility] Aspartate aminotransferase [ Enzymatic activity/volume] in Serum or PlasmaOrdered By: Romel Davis on 09-05-2023 AST [Catalytic activity/Vol] 19 U/L 13-39 [facility] Automated erythrocytes count in urine sediment (number/area)Ordered By: Romel Davis on 09-05-2023 RBC Auto (Urine sed) [#/Area] 0-1 [HPF] 0-4 [facility] Automated leukocytes count i n urine sediment (number/area)Ordered By: Romel Davis on 09-05-2023 WBC Auto (Urine sed) [#/Area] 0-1 [HPF] 0-4 [facility] Basophils Auto (Bld) [#/Vol] Ordered By: Romel Davis on 09-05-2023 Basophils (Bld) [#/Vol] 0.0 10*3/uL 0.0-0.2 [facility] Basophils/100 WBC Auto (Bld) Ordered By: Romel Davis on 09-05-2023 Basophils/100 WBC (Bld) 0.6 % . [facility] Bilirubin Test strip Ql (U)O rdered By: Romel Davis on 09-05-2023 Bilirubin Ql (U) Negative Negative [facility] Bilirubin.total [Mass/volume ] in Serum or PlasmaOrdered By: Romel Davis on 09-05-2023 Bilirubin [Mass/Vol] 0.8 mg/dL 0.3-1.0 [facility] Calcium [Mass/volume] in Ser um or PlasmaOrdered By: Romel Davis on 09-05-2023 Calcium [Mass/Vol] 9.2 mg/dL 8.6-10.3 [facility] Carbon dioxide, total [Moles /volume] in Serum or PlasmaOrdered By: Romel Davis on 09-05-2023 CO2 [Moles/Vol] 27.9 mmol/L 21.0-31.0 [facility] Chloride [Moles/volume] in S ace or PlasmaOrdered By: Romel Davis on 09-05-2023 Chloride [Moles/Vol] 107 mmol/L 98-107 [facility] Color Auto (U)Ordered By: Bridgett malaikacourtney Davis on 09-05-2023 Color (U) Yellow Yellow [facility] Creatinine [Mass/volume] in Serum or PlasmaOrdered By: Romel Davis on 09-05-2023 Creatinine [Mass/Vol] 0.88 mg/dL 0.70-1.30 [facility] Eosinophils Auto (Bld) [#/Vo l]Ordered By: Romel Davis on 09-05-2023 Eosinophils (Bld) [#/Vol] 0.1 10*3/uL 0.0-0.45 [facility] Eosinophils/100 WBC Auto (Bl d)Ordered By: Romel Davis on 09-05-2023 Eosinophils/100 WBC (Bld) 0.9 % . [facility] Erythrocyte distribution wid th Auto (RBC) [Ratio]Ordered By: Romel Davis on 09-05-2023 Erythrocyte distribution width (RBC) [Ratio] 14.1 % 12.0-14.8 [facility] Erythrocyte sedimentation ra te by Photometric methodOrdered By: Romel Davis on 09-05-2023 ESR Photometric method (Bld) [Velocity] 3 mm/hr 0-19 [facility] Globulin Calc (S) [Mass/Vol] Ordered By: Romel Davis on 09-05-2023 Globulin (S) [Mass/Vol] 1.9 g/dL [facility] Glucose [Mass/volume] in Ser um or PlasmaOrdered By: Romel Davis on 09-05-2023 Glucose [Mass/Vol] 75 mg/dL 70-100 [facility] Comment on above: ADA recommended refe rence rangeRandom Glucose Reference Range is dependent on time and content of last meal. Glucose of more than 200 mg/dL in a nonstressed, ambulatory subject supports the diagnosis of Diabetes Mellitus. Hematocrit Auto (Bld) [Volum e fraction]Ordered By: Romel Davis on 09-05-2023 Hematocrit (Bld) [Volume fraction] 44.5 % 38.8-50.0 [facility] Hemoglobin [Mass/volume] in BloodOrdered By: Romel Davis on 09-05-2023 Hemoglobin (Bld) [Mass/Vol] 15.2 g/dL 13.0-17.0 [facility] Ketones Auto test strip (U) [Mass/Vol]Ordered By: Romel Davis on 09-05-2023 Ketones (U) [Mass/Vol] Trace Negative [facility] Laboratory - UrinalysisOrder ed By: Romel Davis on 09-05-2023 Hyaline casts LM Ql (Urine sed) None seen [LPF] 0-8 [facility] Leukocytes [#/volume] correc nat for nucleated erythrocytes in Blood by Automated counOrdered By: Romel Davis on 09-05-2023 WBC corrected for nucl RBC Auto (Bld) [#/Vol] 5.9 10*3/uL 4.1-10.5 [facility] Lymphocytes Auto (Bld) [#/Vo l]Ordered By: Romel Davis on 09-05-2023 Lymphocytes (Bld) [#/Vol] 1.1 10*3/uL 1.00-4.8 [facility] Lymphocytes/100 WBC Auto (Bl d)Ordered By: Romel Davis on 09-05-2023 Lymphocytes/100 WBC (Bld) 17.7 % . [facility] MCH Auto (RBC) [Entitic mass ]Ordered By: Romel Davis on 09-05-2023 MCH (RBC) [Entitic mass] 30.7 pg 27.5-35.2 [facility] MCHC Auto (RBC) [Mass/Vol]Or dered By: Romel Davis on 09-05-2023 MCHC (RBC) [Mass/Vol] 34.2 g/dL 32.5-35.6 [facility] MCV Auto (RBC) [Entitic vol] Ordered By: Romel Davis on 09-05-2023 MCV (RBC) [Entitic vol] 89.9 fL 83.5-101 [facility] Monocytes Auto (Bld) [#/Vol] Ordered By: Romel Davis on 09-05-2023 Monocytes (Bld) [#/Vol] 0.6 10*3/uL 0.0-0.8 [facility] Monocytes/100 WBC Auto (Bld) Ordered By: Romel Ryan on 09-05-2023 Monocytes/100 WBC (Bld) 10.3 % . [facility] Neutrophils Auto (Bld) [#/Vo l]Ordered By: Romel Mendezrow on 09-05-2023 Neutrophils (Bld) [#/Vol] 4.2 10*3/uL 1.8-7.7 [facility] Neutrophils/100 WBC Auto (Bl d)Ordered By: Romel Ryan on 09-05-2023 Neutrophils/100 WBC (Bld) 70.5 % . [facility] Nitrite Test strip Ql (U)Ord ered By: Romel Mendezrow on 09-05-2023 Nitrite Ql (U) Negative Negative [facility] No Panel InformationOrdered By: Romel Mendezrow on 09-05-2023 Estimated GFR (CKD-EPI) > 60.0 mL/Min [facility] Creatinine Clearance (Chem N/A [facility] Total Complement (CH50) 57 U/mL >41 [facility] Comment on above: Age Male [...] to determine out of range values.Performed at: [facility] [address] [id number] Director: Richy Ardon PhD, Phone: [phone] Nucleated erythrocytes [Pres ence] in Blood by Automated countOrdered By: Romelsera Davis on 09-05-2023 Nucleated RBC Auto Ql (Bld) 0.1 /100{WBC} 0-0.5 [facility] Platelet mean volume Auto (B ld) [Entitic vol]Ordered By: Romel Davis on 09-05-2023 Platelet mean volume (Bld) [Entitic vol] 8.9 fL 6.6-10.1 [facility] Platelets Auto (Bld) [#/Vol] Ordered By: Romel Davis on 09-05-2023 Platelets (Bld) [#/Vol] 175 10*3/uL 150-450 [facility] Potassium [Moles/volume] in Serum or PlasmaOrdered By: Romel Davis on 09-05-2023 Potassium [Moles/Vol] 4.1 mmol/L 3.5-5.1 [facility] Protein Auto test strip (U) [Mass/Vol]Ordered By: Romel Davis on 09-05-2023 Protein (U) [Mass/Vol] Negative Negative [facility] Protein [Mass/volume] in Ser um or PlasmaOrdered By: Romel Davis on 09-05-2023 Protein [Mass/Vol] 6.1 g/dL 6.4-8.9 [facility] RBC Auto (Bld) [#/Vol]Ordere d By: Romel Davis on 09-05-2023 RBC (Bld) [#/Vol] 4.96 10*6/uL 3.90-5.60 [facility] Serum or plasma albumin/glob ulin mass ratioOrdered By: Romel Davis on 09-05-2023 Albumin/Globulin [Mass ratio] 2.2 {ratio} [facility] Serum or plasma anion gap de terminationOrdered By: Romel Davis on 09-05-2023 Anion gap [Moles/Vol] 10.2 mmol/L 6.0-15.0 [facility] Serum or plasma complement C 3 measurement (mass/volume)Ordered By: Romel Davis on 09-05-2023 Complement C3 [Mass/Vol] 124 mg/dL 82-167 [facility] Comment on above: Performed at: [address] [id number] Director: Richy Ardon PhD, Phone: [phone] Serum or plasma complement C 4 measurement (mass/volume)Ordered By: Romel Davis on 09-05-2023 Complement C4 [Mass/Vol] 15 mg/dL 12-38 [facility] Sodium [Moles/volume] in Ser um or PlasmaOrdered By: Romel Davis on 09-05-2023 Sodium [Moles/Vol] 141 mmol/L 136-145 [facility] Specific gravity Auto test s trip (U) [Rel density]Ordered By: Romel Davis on 09-05-2023 Specific gravity (U) [Rel density] 1.025 1.001-1.03 0 [facility] Squamous epithelial cells de tection in urine sediment by light microscopyOrdered By: Romel Davis on 09-05-2023 Epithelial cells.squamous LM Ql (Urine sed) None seen [HPF] 0-2 [facility] Urea nitrogen [Mass/volume] in Serum or PlasmaOrdered By: Romel Davis on 09-05-2023 Urea nitrogen [Mass/Vol] 19 mg/dL 7-25 [facility] Urine bacteria detection by automated methodOrdered By: Romel Davis on 09-05-2023 Bacteria Auto Ql (U) None seen None Seen [facility] Urine clarity by refractomet ry automatedOrdered By: Romel Davis on 09-05-2023 Clarity Refractometry automated (U) Clear Clear [facility] Urine glucose measurement by automated test strip (mass/volume)Ordered By: Romel Davis on 09-05-2023 Glucose Auto test strip (U) [Mass/Vol] Normal mg/dL Normal [facility] Urine hemoglobin detection b y automated test stripOrdered By: Romel Davis on 09-05-2023 Hemoglobin Auto test strip Ql (U) Negative Negative [facility] Urine leukocyte esterase det ection by automated test stripOrdered By: Romel Davis on 09-05-2023 Leukocyte esterase Auto test strip Ql (U) Negative Negative [facility] Urobilinogen Auto test strip (U) [Mass/Vol]Ordered By: Romel Davis on 09-05-2023 Urobilinogen (U) [Mass/Vol] Normal mg/dL Normal [facility] WBC Auto (Bld) [#/Vol]Ordere d By: Romel Davis on 09-05-2023 WBC (Bld) [#/Vol] 5.9 10*3/uL 4.1-10.5 [facility] pH Auto test strip (U)Ordere d By: Romel Davis on 09-05-2023 pH (U) 5.5 [pH] 5.0-9.0 [facility] 24 hour urine sodium measure ment (moles/time)Ordered By: Zac Muniz on 08-16-2023 Sodium (24H U) [Moles/Time] 181 mmol/24 40-220 [facility] 24 hour urine uric acid ophelia urement (mass/time)Ordered By: Zac Muniz on 08-16-2023 Urate (24H U) [Mass/Time] 674.9 mg/24 hr 182.4-936. 8 [facility] Comment on above: Performed at: [place] [id number] Director: Richy Ardon PhD, Phone: [phone] CT biopsyOrdered By: Zac Muniz on 08-16-2023 CT biopsy 24 Hours [facility] Calcium [Mass/time] in 24 ho ur UrineOrdered By: Zac Muniz on 08-16-2023 Calcium (24H U) [Mass/Time] 98 mg/24 hr 0-320 [facility] Calcium [Mass/volume] in 24 hour UrineOrdered By: Zac Muniz on 08-16-2023 Calcium (24H U) [Mass/Vol] 3.3 mg/dL Not Estab. [facility] Calcium [Mass/volume] in Ser um or PlasmaOrdered By: Zac Muniz on 08-16-2023 Calcium [Mass/Vol] 9.2 mg/dL 8.6-10.3 [facility] Carbon dioxide, total [Moles /volume] in Serum or PlasmaOrdered By: Zac Muniz on 08-16-2023 CO2 [Moles/Vol] 22.4 mmol/L 21.0-31.0 [facility] Chloride [Moles/volume] in S ace or PlasmaOrdered By: Zac Muniz on 08-16-2023 Chloride [Moles/Vol] 108 mmol/L 98-107 [facility] Creatinine [Mass/volume] in Serum or PlasmaOrdered By: Zac Muniz on 08-16-2023 Creatinine [Mass/Vol] 0.88 mg/dL 0.70-1.30 [facility] Creatinine [Mass/volume] in UrineOrdered By: Zac Muniz on 08-16-2023 Creatinine (U) [Mass/Vol] 57.00 mg/dL 14.00-26.0 0 [facility] Magnesium [Mass/time] in 24 hour UrineOrdered By: Zac Muniz on 08-16-2023 Magnesium (24H U) [Mass/Time] 97.7 mg/24 hr 12.0-293.0 [facility] Magnesium [Mass/volume] in U rineOrdered By: Zac Muniz on 08-16-2023 Magnesium (U) [Mass/Vol] 3.3 mg/dL Not Estab. [facility] No Panel InformationOrdered By: Zac Muniz on 08-16-2023 Estimated GFR (CKD-EPI) > 60.0 mL/Min [facility] Creatinine Clearance (Chem N/A [facility] Urine Citric Acid 219 mg/L Undefined [facility] Comment on above: This test was develo ped and its performance characteristicsdetermined by [facility]. It has not been cleared orapproved by the Food and Drug Administration. Urine Citric Acid 24 Hour 648 mg/24 hr 320-1240 [facility] Comment on above: Performed at: [address] [id number] Director: Kaley Joaquin MD, Phone: [phone] Urine Creatinine 24 Hour 1.68 g/24 hr 1.00-2.09 [facility] Oxalate [Mass/time] in 24 ho ur UrineOrdered By: Zac Muniz on 08-16-2023 Oxalate (24H U) [Mass/Time] 18 mg/24 hr 7-44 [facility] Oxalate [Mass/volume] in Uri neOrdered By: Zac Muniz on 08-16-2023 Oxalate (U) [Mass/Vol] 6 mg/L Undefined [facility] Parathyrin.intact [Mass/volu me] in Serum or PlasmaOrdered By: Zac Muniz on 08-16-2023 Parathyrin.intact [Mass/Vol] 53.9 pg/mL 12 [facility] Phosphate [Mass/time] in 24 hour UrineOrdered By: Zac Muniz on 08-16-2023 Phosphate (24H U) [Mass/Time] 462 mg/24 hr 390-1425 [facility] Phosphate [Mass/volume] in U rineOrdered By: Zac Muniz on 08-16-2023 Phosphate (U) [Mass/Vol] 15.6 mg/dL Not Estab. [facility] Potassium [Moles/volume] in Serum or PlasmaOrdered By: Zac Muniz on 08-16-2023 Potassium [Moles/Vol] 4.0 mmol/L 3.5-5.1 [facility] Serum or plasma anion gap de terminationOrdered By: Zac Muniz on 08-16-2023 Anion gap [Moles/Vol] 12.6 mmol/L 6.0-15.0 [facility] Sodium [Moles/volume] in Ser um or PlasmaOrdered By: Zac Muniz on 08-16-2023 Sodium [Moles/Vol] 139 mmol/L 136-145 [facility] Sodium [Moles/volume] in Uri neOrdered By: Zac Muniz on 08-16-2023 Sodium (U) [Moles/Vol] 61.0 mmol/L [facility] Comment on above: No reference range e stablished Urate [Mass/volume] in Serum or PlasmaOrdered By: Zac Muniz on 08-16-2023 Urate [Mass/Vol] 4.3 mg/dL 4.4-7.6 [facility] Urea nitrogen [Mass/volume] in Serum or PlasmaOrdered By: Zac Muniz on 08-16-2023 Urea nitrogen [Mass/Vol] 22 mg/dL 7-25 [facility] Urine uric acid measurement (mass/volume)Ordered By: Zac Muniz on 08-16-2023 Urate (U) [Mass/Vol] 22.8 mg/dL Not Estab. [facility] Urine volume measurementOrde red By: Zac Muniz on 08-16-2023 Specimen volume (U) 2960 ml [facility] Alanine aminotransferase [En zymatic activity/volume] in Serum or PlasmaOrdered By: Zac Muniz on 05-31-2023 ALT [Catalytic activity/Vol] 34 U/L 7-52 [facility] Albumin [Mass/volume] in Ser um or Plasma by Bromocresol green (BCG) dye binding methoOrdered By: Zac Muniz on 05-31-2023 Albumin BCG dye [Mass/Vol] 4.4 g/dL 3.5-5.7 [facility] Alkaline phosphatase [Enzyma tic activity/volume] in Serum or PlasmaOrdered By: Zac Muniz on 05-31-2023 ALP [Catalytic activity/Vol] 82 U/L 34-104 [facility] Aspartate aminotransferase [ Enzymatic activity/volume] in Serum or PlasmaOrdered By: Zac Muniz on 05-31-2023 AST [Catalytic activity/Vol] 24 U/L 13-39 [facility] Automated erythrocytes count in urine sediment (number/area)Ordered By: Christine Sanchez on 05-31-2023 RBC Auto (Urine sed) [#/Area] 1-2 [HPF] 0-4 [facility] Automated leukocytes count i n urine sediment (number/area)Ordered By: Christine Sanchez on 05-31-2023 WBC Auto (Urine sed) [#/Area] 0-1 [HPF] 0-4 [facility] Basophils Auto (Bld) [#/Vol] Ordered By: Christine Sanchez on 05-31-2023 Basophils (Bld) [#/Vol] 0.0 10*3/uL 0.0-0.2 [facility] Basophils/100 WBC Auto (Bld) Ordered By: Christine Sanchez on 05-31-2023 Basophils/100 WBC (Bld) 0.8 % . [facility] Bilirubin Test strip Ql (U)O rdered By: Christine Sanchez on 05-31-2023 Bilirubin Ql (U) Negative Negative [facility] Bilirubin.total [Mass/volume ] in Serum or PlasmaOrdered By: Zac Muniz on 05-31-2023 Bilirubin [Mass/Vol] 0.8 mg/dL 0.3-1.0 [facility] Calcium [Mass/volume] in Ser um or PlasmaOrdered By: Zac Muniz on 05-31-2023 Calcium [Mass/Vol] 9.1 mg/dL 8.6-10.3 [facility] Carbon dioxide, total [Moles /volume] in Serum or PlasmaOrdered By: Zac Muniz on 05-31-2023 CO2 [Moles/Vol] 24.0 mmol/L 21.0-31.0 [facility] Chloride [Moles/volume] in S ace or PlasmaOrdered By: Zac Muniz on 05-31-2023 Chloride [Moles/Vol] 106 mmol/L 98-107 [facility] Color Auto (U)Ordered By: Marianna Arellano on 05-31-2023 Color (U) Yellow Yellow [facility] Creatinine [Mass/volume] in Serum or PlasmaOrdered By: Zac Muniz on 05-31-2023 Creatinine [Mass/Vol] 1.05 mg/dL 0.70-1.30 [facility] Eosinophils Auto (Bld) [#/Vo l]Ordered By: Christine Sanchez on 05-31-2023 Eosinophils (Bld) [#/Vol] 0.1 10*3/uL 0.0-0.45 [facility] Eosinophils/100 WBC Auto (Bl d)Ordered By: Christine Sanchez on 05-31-2023 Eosinophils/100 WBC (Bld) 1.4 % . [facility] Erythrocyte distribution wid th Auto (RBC) [Ratio]Ordered By: Christine Sanchez on 05-31-2023 Erythrocyte distribution width (RBC) [Ratio] 14.9 % 12.0-14.8 [facility] Erythrocyte sedimentation ra te by Photometric methodOrdered By: Christine Sanchez on 05-31-2023 ESR Photometric method (Bld) [Velocity] 6 mm/hr 0-19 [facility] Globulin Calc (S) [Mass/Vol] Ordered By: Zac Muniz on 05-31-2023 Globulin (S) [Mass/Vol] 2.3 g/dL [facility] Glucose [Mass/volume] in Ser um or PlasmaOrdered By: Zac Muniz on 05-31-2023 Glucose [Mass/Vol] 82 mg/dL 70-100 [facility] Comment on above: ADA recommended refe rence rangeRandom Glucose Reference Range is dependent on time and content of last meal. Glucose of more than 200 mg/dL in a nonstressed, ambulatory subject supports the diagnosis of Diabetes Mellitus. Hematocrit Auto (Bld) [Volum e fraction]Ordered By: Christine Sanchez on 05-31-2023 Hematocrit (Bld) [Volume fraction] 43.1 % 38.8-50.0 [facility] Hemoglobin [Mass/volume] in BloodOrdered By: Christine Sanchez on 05-31-2023 Hemoglobin (Bld) [Mass/Vol] 14.9 g/dL 13.0-17.0 [facility] Ketones Auto test strip (U) [Mass/Vol]Ordered By: Christine Sanchez on 05-31-2023 Ketones (U) [Mass/Vol] Trace Negative [facility] Laboratory - UrinalysisOrder ed By: Christine Sanchez on 05-31-2023 Hyaline casts LM Ql (Urine sed) 0-8 [LPF] 0-8 [facility] Leukocytes [#/volume] correc nat for nucleated erythrocytes in Blood by Automated counOrdered By: Christine Sanchez on 05-31-2023 WBC corrected for nucl RBC Auto (Bld) [#/Vol] 5.5 10*3/uL 4.1-10.5 [facility] Lymphocytes Auto (Bld) [#/Vo l]Ordered By: Christine Sanchez on 05-31-2023 Lymphocytes (Bld) [#/Vol] 1.3 10*3/uL 1.00-4.8 [facility] Lymphocytes/100 WBC Auto (Bl d)Ordered By: Christine Sanchez on 05-31-2023 Lymphocytes/100 WBC (Bld) 24.3 % . [facility] MCH Auto (RBC) [Entitic mass ]Ordered By: Christine Sanchez on 05-31-2023 MCH (RBC) [Entitic mass] 30.8 pg 27.5-35.2 [facility] MCHC Auto (RBC) [Mass/Vol]Or dered By: Christine Sanchez on 05-31-2023 MCHC (RBC) [Mass/Vol] 34.6 g/dL 32.5-35.6 [facility] MCV Auto (RBC) [Entitic vol] Ordered By: Christine Sanchez on 05-31-2023 MCV (RBC) [Entitic vol] 89.1 fL 83.5-101 [facility] Monocytes Auto (Bld) [#/Vol] Ordered By: Christine Sanchez on 05-31-2023 Monocytes (Bld) [#/Vol] 0.7 10*3/uL 0.0-0.8 [facility] Monocytes/100 WBC Auto (Bld) Ordered By: Christine Sanchez on 05-31-2023 Monocytes/100 WBC (Bld) 12.9 % . [facility] Neutrophils Auto (Bld) [#/Vo l]Ordered By: Christine Sanchez on 05-31-2023 Neutrophils (Bld) [#/Vol] 3.3 10*3/uL 1.8-7.7 [facility] Neutrophils/100 WBC Auto (Bl d)Ordered By: Christine Sanchez on 05-31-2023 Neutrophils/100 WBC (Bld) 60.6 % . [facility] Nitrite Test strip Ql (U)Ord ered By: Christine Sanchez on 05-31-2023 Nitrite Ql (U) Negative Negative [facility] No Panel InformationOrdered By: Zac Muniz on 05-31-2023 Estimated GFR (CKD-EPI) > 60.0 mL/Min [facility] Creatinine Clearance (Chem N/A [facility] No Panel InformationOrdered By: Christine Sanchez on 05-31-2023 Total Complement (CH50) 60 U/mL >41 [facility] Comment on above: Age Male [...] to determine out of range values.Performed at: [facility] [address] [id number] Director: Rcihy Ardon PhD, Phone: [phone] Nucleated erythrocytes [Pres ence] in Blood by Automated countOrdered By: Christine Sanchez on 05-31-2023 Nucleated RBC Auto Ql (Bld) 0.1 /100{WBC} 0-0.5 [facility] Platelet mean volume Auto (B ld) [Entitic vol]Ordered By: Christine Sanchez on 05-31-2023 Platelet mean volume (Bld) [Entitic vol] 8.4 fL 6.6-10.1 [facility] Platelets Auto (Bld) [#/Vol] Ordered By: Christine Sacnhez on 05-31-2023 Platelets (Bld) [#/Vol] 178 10*3/uL 150-450 [facility] Potassium [Moles/volume] in Serum or PlasmaOrdered By: Zac Muniz on 05-31-2023 Potassium [Moles/Vol] 4.4 mmol/L 3.5-5.1 [facility] Protein Auto test strip (U) [Mass/Vol]Ordered By: Christine Sanchez on 05-31-2023 Protein (U) [Mass/Vol] Trace mg/dL Negative [facility] Protein [Mass/volume] in Ser um or PlasmaOrdered By: Zac Muniz on 05-31-2023 Protein [Mass/Vol] 6.7 g/dL 6.4-8.9 [facility] RBC Auto (Bld) [#/Vol]Ordere d By: Christine Sanchez on 05-31-2023 RBC (Bld) [#/Vol] 4.84 10*6/uL 3.90-5.60 [facility] Serum or plasma albumin/glob ulin mass ratioOrdered By: Zac Muniz on 05-31-2023 Albumin/Globulin [Mass ratio] 1.9 {ratio} [facility] Serum or plasma anion gap de terminationOrdered By: Zac Muniz on 05-31-2023 Anion gap [Moles/Vol] 11.4 mmol/L 6.0-15.0 [facility] Serum or plasma complement C 3 measurement (mass/volume)Ordered By: Christine Sanchez on 05-31-2023 Complement C3 [Mass/Vol] 132 mg/dL 82-167 [facility] Comment on above: Performed at: [place] [id number] Director: Richy Ardon PhD, Phone: [phone] Serum or plasma complement C 4 measurement (mass/volume)Ordered By: Christine Sanchez on 05-31-2023 Complement C4 [Mass/Vol] 16 mg/dL 12-38 [facility] Sodium [Moles/volume] in Ser um or PlasmaOrdered By: Zac Muniz on 05-31-2023 Sodium [Moles/Vol] 137 mmol/L 136-145 [facility] Specific gravity Auto test s trip (U) [Rel density]Ordered By: Christine Sanchez on 05-31-2023 Specific gravity (U) [Rel density] 1.023 1.001-1.03 0 [facility] Squamous epithelial cells de tection in urine sediment by light microscopyOrdered By: Christine Sanchez on 05-31-2023 Epithelial cells.squamous LM Ql (Urine sed) None seen [HPF] 0-2 [facility] Urea nitrogen [Mass/volume] in Serum or PlasmaOrdered By: Zac Muniz on 05-31-2023 Urea nitrogen [Mass/Vol] 28 mg/dL 7-25 [facility] Urine bacteria detection by automated methodOrdered By: Christine Sanchez on 05-31-2023 Bacteria Auto Ql (U) None seen None Seen [facility] Urine clarity by refractomet ry automatedOrdered By: Christine Sanchez on 05-31-2023 Clarity Refractometry automated (U) Clear Clear [facility] Urine glucose measurement by automated test strip (mass/volume)Ordered By: Christine Sanchez on 05-31-2023 Glucose Auto test strip (U) [Mass/Vol] Normal mg/dL Normal [facility] Urine hemoglobin detection b y automated test stripOrdered By: Christine Sanchez on 05-31-2023 Hemoglobin Auto test strip Ql (U) Negative Negative [facility] Urine leukocyte esterase det ection by automated test stripOrdered By: Christine Sanchez on 05-31-2023 Leukocyte esterase Auto test strip Ql (U) Negative Negative [facility] Urobilinogen Auto test strip (U) [Mass/Vol]Ordered By: Christine Sanchez on 05-31-2023 Urobilinogen (U) [Mass/Vol] Normal mg/dL Normal [facility] WBC Auto (Bld) [#/Vol]Ordere d By: Christine Sanchez on 05-31-2023 WBC (Bld) [#/Vol] 5.5 10*3/uL 4.1-10.5 [facility] pH Auto test strip (U)Ordere d By: Christine Sanchez on 05-31-2023 pH (U) 5.5 [pH] 5.0-9.0 [facility] Ammonium urate crystals dete ction in stone by infrared spectroscopyOrdered By: Zac Muniz on 05-18-2023 Ammonium urate crystals Infrared spectroscopy Ql (Stone) N/A [facility] Calcium bilirubinate measure mentOrdered By: Zac Muniz on 05-18-2023 Calcium bilirubinate (Stone) [Mass fraction] N/A [facility] Calcium carbonate measuremen tOrdered By: Zac Muniz on 05-18-2023 Calcium carbonate (Stone) [Mass fraction] N/A [facility] Calcium hydrogen phosphate d ihydrate/Total in StoneOrdered By: Zac Muniz on 05-18-2023 Calcium hydrogen phosphate dihydrate (Stone) [Mass fraction] N/A [facility] Calcium oxalate dihydrate cr ystals detection in stone by infrared spectroscopyOrdered By: Zac Muniz on 05-18-2023 Calcium oxalate dihydrate crystals Infrared spectroscopy Ql (Stone) N/A [facility] Calcium oxalate monohydrate/ Total in StoneOrdered By: Zac Muniz on 05-18-2023 Calcium oxalate monohydrate (Stone) [Mass fraction] N/A [facility] Calcium phosphate measuremen tOrdered By: Zac Muniz on 05-18-2023 Calcium phosphate (Stone) [Mass fraction] N/A [facility] Calculus analysis interpreta tion in stoneOrdered By: Zac Muniz on 05-18-2023 Calculus analysis [Interp] N/A [facility] Calculus analysis [Interp] See comment . [facility] Comment on above: Physician questions regarding Calculi Analysis [facility] CenterCo at: [phone]. Calculi report will follow via computer, mail or courierdelivery. Calculus analysis with calcu silva photography interpretation in stoneOrdered By: Zac Muniz on 05-18-2023 Calculus analysis with calculus photography [Interp] See comment . [facility] Comment on above: Photograph will foll ow under a separate cover Cellular material measuremen t in stone by estimated (mass/mass)Ordered By: Zac Muniz on 05-18-2023 Cellular material Est (Stone) [Mass/Mass] N/A [facility] Cholesterol/Total in StoneOr dered By: Zac Muniz on 05-18-2023 Cholesterol (Stone) [Mass fraction] N/A [facility] Composition of stoneOrdered By: Zac Muniz on 05-18-2023 Composition Nom (Stone) See comment . [facility] Comment on above: Percentage (Represen ts the % composition) Cystine measurementOrdered B y: Zac Muniz on 05-18-2023 Cystine (Unsp spec) [Moles/Vol] N/A [facility] Determination of color of ca lculusOrdered By: Zac Muniz on 05-18-2023 Color (Stone) Alexander . [facility] Hydroxyapatite [Energy Diffe rence] in 24 hour UrineOrdered By: Zac Muniz on 05-18-2023 Hydroxyapatite (24H U) [Energy diff] N/A [facility] Measurement of proportion of calculus composed of dried blood (mass/mass)Ordered By: Zac Muniz on 05-18-2023 Blood.dried (Stone) [Mass fraction] N/A [facility] Newberyite/Total in StoneOrd ered By: Zac Muniz on 05-18-2023 Newberyite (Stone) [Mass fraction] N/A [facility] No Panel InformationOrdered By: Zac Muniz on 05-18-2023 Stone 2,8 Dihydroxyadenine N/A [facility] Stone Analysis Disclaimer See comment . [facility] Comment on above: This test was develo ped and its performance characteristicsdetermined by [facility]. It has not been cleared or approvedby the Food and Drug Administration.Performed at: [facility] [address] [id number] Director: Jimmy Warner PhD, Phone: [phone] Stone Bilirubinate N/A [facility] Stone Calcium Palmitate N/A [facility] Stone Calcium Stearate N/A [facility] Stone Carbonate Apatite N/A [facility] Stone Drug or Metabolite N/A [facility] Stone Other Constituent N/A [facility] Stone Xanthine N/A [facility] Size [Entitic volume] of Sto neOrdered By: Zac Muniz on 05-18-2023 Size (Stone) [Entitic vol] 4x4 mm . [facility] Comment on above: Multiple pieces rece ived. Dimensions of the largest piecereported. Sodium urate crystals detect ion in stone by infrared spectroscopyOrdered By: Zac Muniz on 05-18-2023 Sodium urate crystals Infrared spectroscopy Ql (Stone) N/A [facility] Specimen source subject [Typ e]Ordered By: Zac Muniz on 05-18-2023 Specimen source subject Nom See comment . [facility] Comment on above: Not provided Triamterene measurement in c alculusOrdered By: Zac Muniz on 05-18-2023 Triamterene (Stone) [Mass fraction] N/A [facility] Triple phosphate/Total in St oneOrdered By: Zac Muniz on 05-18-2023 Triple phosphate (Stone) [Mass fraction] N/A [facility] Uric acid dihydrate crystals detection in stone by infrared spectroscopyOrdered By: Zac Muniz on 05-18-2023 Urate dihydrate crystals Infrared spectroscopy Ql (Stone) 100 % . [facility] Urate dihydrate crystals Infrared spectroscopy Ql (Stone) N/A [facility] Tobacco Screening.on 023 Adult depression screening assessment No [facility] [employer]Qoiza manda 250 DO Work Phone: Fall risk assessment a) No falls within the last year [facility] [employer] manda 250 DO Work Phone: Tobacco use status CPHS b) No [facility] [employer]Guanriraj manda 250 DO Work Phone: Automated erythrocytes count in urine sediment (number/area)Ordered By: Romel Orta on 05-07-2023 RBC Auto (Urine sed) [#/Area] 1-2 [HPF] 0-4 [facility] Automated leukocytes count i n urine sediment (number/area)Ordered By: Romel Orta on 05-07-2023 WBC Auto (Urine sed) [#/Area] 3-4 [HPF] 0-4 [facility] Basophils Auto (Bld) [#/Vol] Ordered By: Romel Orta on 05-07-2023 Basophils (Bld) [#/Vol] 0.1 10*3/uL 0.0-0.2 [facility] Basophils/100 WBC Auto (Bld) Ordered By: Romel Orta on 05-07-2023 Basophils/100 WBC (Bld) 0.6 % . [facility] Bilirubin Test strip Ql (U)O rdered By: Romel Orta on 05-07-2023 Bilirubin Ql (U) Negative Negative [facility] Calcium [Mass/volume] in Ser um or PlasmaOrdered By: Romel Orta on 05-07-2023 Calcium [Mass/Vol] 8.8 mg/dL 8.6-10.3 [facility] Carbon dioxide, total [Moles /volume] in Serum or PlasmaOrdered By: Romel Orta on 05-07-2023 CO2 [Moles/Vol] 20.8 mmol/L 21.0-31.0 [facility] Chloride [Moles/volume] in S ace or PlasmaOrdered By: Romel Orta on 05-07-2023 Chloride [Moles/Vol] 105 mmol/L 98-107 [facility] Color Auto (U)Ordered By: Bridgett nasreen Marivel on 05-07-2023 Color (U) Yellow Yellow [facility] Creatinine [Mass/volume] in Serum or PlasmaOrdered By: Romel Orta on 05-07-2023 Creatinine [Mass/Vol] 1.94 mg/dL 0.70-1.30 [facility] Eosinophils Auto (Bld) [#/Vo l]Ordered By: Romel Orta on 05-07-2023 Eosinophils (Bld) [#/Vol] 0.1 10*3/uL 0.0-0.45 [facility] Eosinophils/100 WBC Auto (Bl d)Ordered By: Romel Orta on 05-07-2023 Eosinophils/100 WBC (Bld) 1.1 % . [facility] Erythrocyte distribution wid th Auto (RBC) [Ratio]Ordered By: Romel Orta on 05-07-2023 Erythrocyte distribution width (RBC) [Ratio] 14.3 % 12.0-14.8 [facility] Glucose [Mass/volume] in Ser um or PlasmaOrdered By: Romel Orta on 05-07-2023 Glucose [Mass/Vol] 98 mg/dL 70-100 [facility] Comment on above: ADA recommended refe rence rangeRandom Glucose Reference Range is dependent on time and content of last meal. Glucose of more than 200 mg/dL in a nonstressed, ambulatory subject supports the diagnosis of Diabetes Mellitus. Hematocrit Auto (Bld) [Volum e fraction]Ordered By: Romel Orta on 05-07-2023 Hematocrit (Bld) [Volume fraction] 38.9 % 38.8-50.0 [facility] Hemoglobin [Mass/volume] in BloodOrdered By: Romel Orta on 05-07-2023 Hemoglobin (Bld) [Mass/Vol] 13.7 g/dL 13.0-17.0 [facility] Ketones Auto test strip (U) [Mass/Vol]Ordered By: Romel Orta on 05-07-2023 Ketones (U) [Mass/Vol] Trace Negative [facility] Laboratory - UrinalysisOrder ed By: Romel Orta on 05-07-2023 Hyaline casts LM Ql (Urine sed) 0-8 [LPF] 0-8 [facility] Leukocytes [#/volume] correc nat for nucleated erythrocytes in Blood by Automated counOrdered By: Romel Orta on 05-07-2023 WBC corrected for nucl RBC Auto (Bld) [#/Vol] 9.9 10*3/uL 4.1-10.5 [facility] Lymphocytes Auto (Bld) [#/Vo l]Ordered By: Romel Orta on 05-07-2023 Lymphocytes (Bld) [#/Vol] 0.6 10*3/uL 1.00-4.8 [facility] Lymphocytes/100 WBC Auto (Bl d)Ordered By: Romel Orta on 05-07-2023 Lymphocytes/100 WBC (Bld) 6.2 % . [facility] MCH Auto (RBC) [Entitic mass ]Ordered By: Romel Orta on 05-07-2023 MCH (RBC) [Entitic mass] 31.3 pg 27.5-35.2 [facility] MCHC Auto (RBC) [Mass/Vol]Or dered By: Romel Orta on 05-07-2023 MCHC (RBC) [Mass/Vol] 35.2 g/dL 32.5-35.6 [facility] MCV Auto (RBC) [Entitic vol] Ordered By: Romel Orta on 05-07-2023 MCV (RBC) [Entitic vol] 88.9 fL 83.5-101 [facility] Monocyte distribution width [Entitic volume] in Blood by AutomatedOrdered By: Romel Orta on 05-07-2023 Monocyte distribution width Auto (Bld) [Entitic vol] 22.82 % 0.00-20.00 [facility] Comment on above: For adults in ED, MD W > 20.0 may be associated with a higher risk of sepsis during the first 12 hrs of hospital admission Monocytes Auto (Bld) [#/Vol] Ordered By: Romel Orta on 05-07-2023 Monocytes (Bld) [#/Vol] 1.5 10*3/uL 0.0-0.8 [facility] Monocytes/100 WBC Auto (Bld) Ordered By: Romel Orta on 05-07-2023 Monocytes/100 WBC (Bld) 15.4 % . [facility] Neutrophils Auto (Bld) [#/Vo l]Ordered By: Romel Orta on 05-07-2023 Neutrophils (Bld) [#/Vol] 7.6 10*3/uL 1.8-7.7 [facility] Neutrophils/100 WBC Auto (Bl d)Ordered By: Romel Orta on 05-07-2023 Neutrophils/100 WBC (Bld) 76.7 % . [facility] Nitrite Test strip Ql (U)Ord ered By: Romel Orta on 05-07-2023 Nitrite Ql (U) Negative Negative [facility] No Panel InformationOrdered By: Romel Orta on 05-07-2023 Estimated GFR (CKD-EPI) 37.476 mL/Min [facility] Creatinine Clearance (Chem 41.86 [facility] Nucleated erythrocytes [Pres ence] in Blood by Automated countOrdered By: Romel Orta on 05-07-2023 Nucleated RBC Auto Ql (Bld) 0.1 /100{WBC} 0-0.5 [facility] Platelet mean volume Auto (B ld) [Entitic vol]Ordered By: Romel Orta on 05-07-2023 Platelet mean volume (Bld) [Entitic vol] 8.3 fL 6.6-10.1 [facility] Platelets Auto (Bld) [#/Vol] Ordered By: Romel Orta on 05-07-2023 Platelets (Bld) [#/Vol] 193 10*3/uL 150-450 [facility] Potassium [Moles/volume] in Serum or PlasmaOrdered By: Romel Orta on 05-07-2023 Potassium [Moles/Vol] 4.2 mmol/L 3.5-5.1 [facility] Protein Auto test strip (U) [Mass/Vol]Ordered By: Romel Orta on 05-07-2023 Protein (U) [Mass/Vol] Negative [facility] RBC Auto (Bld) [#/Vol]Ordere d By: Romel Orta on 05-07-2023 RBC (Bld) [#/Vol] 4.38 10*6/uL 3.90-5.60 [facility] Serum or plasma anion gap de terminationOrdered By: Romel Orta on 05-07-2023 Anion gap [Moles/Vol] 15.4 mmol/L 6.0-15.0 [facility] Sodium [Moles/volume] in Ser um or PlasmaOrdered By: Romel Orta on 05-07-2023 Sodium [Moles/Vol] 137 mmol/L 136-145 [facility] Specific gravity Auto test s trip (U) [Rel density]Ordered By: Romel Orta on 05-07-2023 Specific gravity (U) [Rel density] 1.028 1.001-1.03 0 [facility] Squamous epithelial cells de tection in urine sediment by light microscopyOrdered By: Romel Orta on 05-07-2023 Epithelial cells.squamous LM Ql (Urine sed) 0-1 [HPF] 0-2 [facility] Urea nitrogen [Mass/volume] in Serum or PlasmaOrdered By: Romel Orta on 05-07-2023 Urea nitrogen [Mass/Vol] 34 mg/dL 7-25 [facility] Urine bacteria detection by automated methodOrdered By: Romel Orta on 05-07-2023 Bacteria Auto Ql (U) None seen None Seen [facility] Urine clarity by refractomet ry automatedOrdered By: Romel Orta on 05-07-2023 Clarity Refractometry automated (U) Cloudy Clear [facility] Urine glucose measurement by automated test strip (mass/volume)Ordered By: Romel Orta on 05-07-2023 Glucose Auto test strip (U) [Mass/Vol] Normal mg/dL Normal [facility] Urine hemoglobin detection b y automated test stripOrdered By: Romel Orta on 05-07-2023 Hemoglobin Auto test strip Ql (U) Negative Negative [facility] Urine leukocyte esterase det ection by automated test stripOrdered By: Romel Orta on 05-07-2023 Leukocyte esterase Auto test strip Ql (U) Negative Negative [facility] Urine sediment crystal ident ification by light microscopyOrdered By: Romel Orta on 05-07-2023 Crystals LM Nom (Urine sed) N/A [facility] Urobilinogen Auto test strip (U) [Mass/Vol]Ordered By: Romel Orta on 05-07-2023 Urobilinogen (U) [Mass/Vol] Normal mg/dL Normal [facility] WBC Auto (Bld) [#/Vol]Ordere d By: Romel Orta on 05-07-2023 WBC (Bld) [#/Vol] 9.9 10*3/uL 4.1-10.5 [facility] pH Auto test strip (U)Ordere d By: Romel Orta on 05-07-2023 pH (U) 5.0 [pH] 5.0-9.0 [facility] Alanine aminotransferase [En zymatic activity/volume] in Serum or PlasmaOrdered By: Edenilson Reinoso on 05-03-2023 ALT [Catalytic activity/Vol] 44 U/L 7-52 [facility] Albumin [Mass/volume] in Ser um or Plasma by Bromocresol green (BCG) dye binding methoOrdered By: Edenilson Reinoso on 05-03-2023 Albumin BCG dye [Mass/Vol] 4.4 g/dL 3.5-5.7 [facility] Alkaline phosphatase [Enzyma tic activity/volume] in Serum or PlasmaOrdered By: Edenilson Reinoso on 05-03-2023 ALP [Catalytic activity/Vol] 79 U/L 34-104 [facility] Aspartate aminotransferase [ Enzymatic activity/volume] in Serum or PlasmaOrdered By: Edenilson Reinoso on 05-03-2023 AST [Catalytic activity/Vol] 28 U/L 13-39 [facility] Automated erythrocytes count in urine sediment (number/area)Ordered By: Edenilson Reinoso on 05-03-2023 RBC Auto (Urine sed) [#/Area] 10-19 [HPF] 0-4 [facility] Automated leukocytes count i n urine sediment (number/area)Ordered By: Edenilson Reinoso on 05-03-2023 WBC Auto (Urine sed) [#/Area] 0-1 [HPF] 0-4 [facility] Basophils Auto (Bld) [#/Vol] Ordered By: Edenilson Reinoso on 05-03-2023 Basophils (Bld) [#/Vol] 0.0 10*3/uL 0.0-0.2 [facility] Basophils/100 WBC Auto (Bld) Ordered By: Edenilson Reinoso on 05-03-2023 Basophils/100 WBC (Bld) 0.3 % . [facility] Bilirubin Test strip Ql (U)O rdered By: Edenilson Reinoso on 05-03-2023 Bilirubin Ql (U) Negative Negative [facility] Bilirubin.direct [Mass/volum e] in Serum or PlasmaOrdered By: Edenilson Reinoso on 05-03-2023 Bilirubin.direct [Mass/Vol] 0.20 mg/dL 0.03-0.18 [facility] Bilirubin.total [Mass/volume ] in Serum or PlasmaOrdered By: Edenilson Reinoso on 05-03-2023 Bilirubin [Mass/Vol] 1.0 mg/dL 0.3-1.0 [facility] Calcium [Mass/volume] in Ser um or PlasmaOrdered By: Edenilson Reinoso on 05-03-2023 Calcium [Mass/Vol] 9.2 mg/dL 8.6-10.3 [facility] Carbon dioxide, total [Moles /volume] in Serum or PlasmaOrdered By: Edenilson Reinoso on 05-03-2023 CO2 [Moles/Vol] 21.3 mmol/L 21.0-31.0 [facility] Chloride [Moles/volume] in S ace or PlasmaOrdered By: Edenilson Reinoso on 05-03-2023 Chloride [Moles/Vol] 105 mmol/L 98-107 [facility] Color Auto (U)Ordered By: Chen Reinoso on 05-03-2023 Color (U) Yellow Yellow [facility] Creatinine [Mass/volume] in Serum or PlasmaOrdered By: Edenilson Reinoso on 05-03-2023 Creatinine [Mass/Vol] 1.51 mg/dL 0.70-1.30 [facility] Eosinophils Auto (Bld) [#/Vo l]Ordered By: Edenilson Reinoso on 05-03-2023 Eosinophils (Bld) [#/Vol] 0.0 10*3/uL 0.0-0.45 [facility] Eosinophils/100 WBC Auto (Bl d)Ordered By: Edenilson Reinoso on 05-03-2023 Eosinophils/100 WBC (Bld) 0.3 % . [facility] Erythrocyte distribution wid th Auto (RBC) [Ratio]Ordered By: Edenilson Reinoso on 05-03-2023 Erythrocyte distribution width (RBC) [Ratio] 14.9 % 12.0-14.8 [facility] Globulin Calc (S) [Mass/Vol] Ordered By: Edenilson Reinoso on 05-03-2023 Globulin (S) [Mass/Vol] 2.3 g/dL [facility] Glucose [Mass/volume] in Ser um or PlasmaOrdered By: Edenilson Reinoso on 05-03-2023 Glucose [Mass/Vol] 107 mg/dL 70-100 [facility] Comment on above: ADA recommended refe rence rangeRandom Glucose Reference Range is dependent on time and content of last meal. Glucose of more than 200 mg/dL in a nonstressed, ambulatory subject supports the diagnosis of Diabetes Mellitus. Hematocrit Auto (Bld) [Volum e fraction]Ordered By: Edenilson Reinoso on 05-03-2023 Hematocrit (Bld) [Volume fraction] 44.5 % 38.8-50.0 [facility] Hemoglobin [Mass/volume] in BloodOrdered By: Edenilson Reinoso on 05-03-2023 Hemoglobin (Bld) [Mass/Vol] 15.7 g/dL 13.0-17.0 [facility] Ketones Auto test strip (U) [Mass/Vol]Ordered By: Edenilson Reinoso on 05-03-2023 Ketones (U) [Mass/Vol] Trace Negative [facility] Laboratory - UrinalysisOrder ed By: Edenilson Reinoso on 05-03-2023 Hyaline casts LM Ql (Urine sed) 0-8 [LPF] 0-8 [facility] Leukocytes [#/volume] correc nat for nucleated erythrocytes in Blood by Automated counOrdered By: Edenilson Reinoso on 05-03-2023 WBC corrected for nucl RBC Auto (Bld) [#/Vol] 13.4 10*3/uL 4.1-10.5 [facility] Lipase [Enzymatic activity/v olume] in Serum or PlasmaOrdered By: Edenilson Reinoso on 05-03-2023 Lipase [Catalytic activity/Vol] 28.0 U/L 11.0-82.0 [facility] Lymphocytes Auto (Bld) [#/Vo l]Ordered By: Edenilson Reinoso on 05-03-2023 Lymphocytes (Bld) [#/Vol] 0.6 10*3/uL 1.00-4.8 [facility] Lymphocytes/100 WBC Auto (Bl d)Ordered By: Edenilson Reinoso on 05-03-2023 Lymphocytes/100 WBC (Bld) 4.3 % . [facility] MCH Auto (RBC) [Entitic mass ]Ordered By: Edenilson Reinoso on 05-03-2023 MCH (RBC) [Entitic mass] 31.1 pg 27.5-35.2 [facility] MCHC Auto (RBC) [Mass/Vol]Or dered By: Edenilson eRinoso on 05-03-2023 MCHC (RBC) [Mass/Vol] 35.4 g/dL 32.5-35.6 [facility] MCV Auto (RBC) [Entitic vol] Ordered By: Edenilson Reinoso on 05-03-2023 MCV (RBC) [Entitic vol] 87.9 fL 83.5-101 [facility] Monocyte distribution width [Entitic volume] in Blood by AutomatedOrdered By: Edenilson Reinoso on 05-03-2023 Monocyte distribution width Auto (Bld) [Entitic vol] 24.56 % 0.00-20.00 [facility] Comment on above: For adults in ED, MD W > 20.0 may be associated with a higher risk of sepsis during the first 12 hrs of hospital admission Monocytes Auto (Bld) [#/Vol] Ordered By: Edenilson Reinoso on 05-03-2023 Monocytes (Bld) [#/Vol] 1.5 10*3/uL 0.0-0.8 [facility] Monocytes/100 WBC Auto (Bld) Ordered By: Edenilson Reinoso on 05-03-2023 Monocytes/100 WBC (Bld) 11.0 % . [facility] Neutrophils Auto (Bld) [#/Vo l]Ordered By: Edenilson Reinoso on 05-03-2023 Neutrophils (Bld) [#/Vol] 11.3 10*3/uL 1.8-7.7 [facility] Neutrophils/100 WBC Auto (Bl d)Ordered By: Edenilson Reinoso on 05-03-2023 Neutrophils/100 WBC (Bld) 84.1 % . [facility] Nitrite Test strip Ql (U)Ord ered By: Edenilson Reinoso on 05-03-2023 Nitrite Ql (U) Negative Negative [facility] No Panel InformationOrdered By: Edenilson Reinoso on 05-03-2023 Estimated GFR (CKD-EPI) 50.623 mL/Min [facility] Creatinine Clearance (Chem 54.49 [facility] Nucleated erythrocytes [Pres ence] in Blood by Automated countOrdered By: Edenilson Reinoso on 05-03-2023 Nucleated RBC Auto Ql (Bld) 0.1 /100{WBC} 0-0.5 [facility] Platelet mean volume Auto (B ld) [Entitic vol]Ordered By: Edenilson Reinoso on 05-03-2023 Platelet mean volume (Bld) [Entitic vol] 8.4 fL 6.6-10.1 [facility] Platelets Auto (Bld) [#/Vol] Ordered By: Edenilson Reinoso on 05-03-2023 Platelets (Bld) [#/Vol] 185 10*3/uL 150-450 [facility] Potassium [Moles/volume] in Serum or PlasmaOrdered By: Edenilson Reinoso on 05-03-2023 Potassium [Moles/Vol] 4.1 mmol/L 3.5-5.1 [facility] Protein Auto test strip (U) [Mass/Vol]Ordered By: Edenilson Reinoso on 05-03-2023 Protein (U) [Mass/Vol] Trace mg/dL Negative [facility] Protein [Mass/volume] in Ser um or PlasmaOrdered By: Edenilson Reinoso on 05-03-2023 Protein [Mass/Vol] 6.7 g/dL 6.4-8.9 [facility] RBC Auto (Bld) [#/Vol]Ordere d By: Edenilson Reinoso on 05-03-2023 RBC (Bld) [#/Vol] 5.06 10*6/uL 3.90-5.60 [facility] Serum or plasma albumin/glob ulin mass ratioOrdered By: Edenilson Reinoso on 05-03-2023 Albumin/Globulin [Mass ratio] 1.9 {ratio} [facility] Serum or plasma anion gap de terminationOrdered By: Edenilson Reinoso on 05-03-2023 Anion gap [Moles/Vol] 13.8 mmol/L 6.0-15.0 [facility] Serum or plasma non-glucuron idated bilirubin measurement (mass/volume)Ordered By: Edenilson Reinoso on 05-03-2023 Bilirubin.indirect [Mass/Vol] 0.8 mg/dL [facility] Sodium [Moles/volume] in Ser um or PlasmaOrdered By: Edenilson Reinoso on 05-03-2023 Sodium [Moles/Vol] 136 mmol/L 136-145 [facility] Specific gravity Auto test s trip (U) [Rel density]Ordered By: Edenilson Reinoso on 05-03-2023 Specific gravity (U) [Rel density] 1.024 1.001-1.03 0 [facility] Squamous epithelial cells de tection in urine sediment by light microscopyOrdered By: Edenilson Reinoso on 05-03-2023 Epithelial cells.squamous LM Ql (Urine sed) None seen [HPF] 0-2 [facility] Urea nitrogen [Mass/volume] in Serum or PlasmaOrdered By: Edenilson Reinoso on 05-03-2023 Urea nitrogen [Mass/Vol] 22 mg/dL 7-25 [facility] Urine bacteria detection by automated methodOrdered By: Edenilson Reinoso on 05-03-2023 Bacteria Auto Ql (U) None seen None Seen [facility] Urine clarity by refractomet ry automatedOrdered By: Edenilson Reinoso on 05-03-2023 Clarity Refractometry automated (U) Clear Clear [facility] Urine glucose measurement by automated test strip (mass/volume)Ordered By: Edenilson Reinoso on 05-03-2023 Glucose Auto test strip (U) [Mass/Vol] Normal mg/dL Normal [facility] Urine hemoglobin detection b y automated test stripOrdered By: Edenilson Reinoso on 05-03-2023 Hemoglobin Auto test strip Ql (U) 1+ Negative [facility] Urine leukocyte esterase det ection by automated test stripOrdered By: Edenilson Reinoso on 05-03-2023 Leukocyte esterase Auto test strip Ql (U) 1+ Negative [facility] Urobilinogen Auto test strip (U) [Mass/Vol]Ordered By: Edenilson Reinoso on 05-03-2023 Urobilinogen (U) [Mass/Vol] Normal mg/dL Normal [facility] WBC Auto (Bld) [#/Vol]Ordere d By: Edenilson Reinoso on 05-03-2023 WBC (Bld) [#/Vol] 13.4 10*3/uL 4.1-10.5 [facility] pH Auto test strip (U)Ordere d By: Edenilson Reinoso on 05-03-2023 pH (U) 5.5 [pH] 5.0-9.0 [facility] Alanine aminotransferase [En zymatic activity/volume] in Serum or PlasmaOrdered By: Sascha Sutton on 04-08-2023 ALT [Catalytic activity/Vol] 33 U/L 7-52 [facility] Albumin [Mass/volume] in Ser um or Plasma by Bromocresol green (BCG) dye binding methoOrdered By: Sascha Sutton on 04-08-2023 Albumin BCG dye [Mass/Vol] 4.0 g/dL 3.5-5.7 [facility] Alkaline phosphatase [Enzyma tic activity/volume] in Serum or PlasmaOrdered By: Sascha Sutton on 04-08-2023 ALP [Catalytic activity/Vol] 82 U/L 34-104 [facility] Aspartate aminotransferase [ Enzymatic activity/volume] in Serum or PlasmaOrdered By: Sascha Sutton on 04-08-2023 AST [Catalytic activity/Vol] 19 U/L 13-39 [facility] Bilirubin.total [Mass/volume ] in Serum or PlasmaOrdered By: Sascha Sutton on 04-08-2023 Bilirubin [Mass/Vol] 0.8 mg/dL 0.3-1.0 [facility] Calcium [Mass/volume] in Ser um or PlasmaOrdered By: Sascha Sutton on 04-08-2023 Calcium [Mass/Vol] 8.8 mg/dL 8.6-10.3 [facility] Carbon dioxide, total [Moles /volume] in Serum or PlasmaOrdered By: Sascha Sutton on 04-08-2023 CO2 [Moles/Vol] 28.1 mmol/L 21.0-31.0 [facility] Chloride [Moles/volume] in S ace or PlasmaOrdered By: Sascha Sutton on 04-08-2023 Chloride [Moles/Vol] 107 mmol/L 98-107 [facility] Cholesterol [Mass/volume] in Serum or PlasmaOrdered By: Sascha Sutton on 04-08-2023 Cholesterol [Mass/Vol] 119 mg/dL 140-200 [facility] Comment on above: Chol less than 200 m g/dl low riskChol 201-239 mg/dl borderline riskChol 240 mg/dl and greater high risk Cholesterol in LDL Calc [Mas s/Vol]Ordered By: Sascha Sutton on 04-08-2023 Cholesterol in LDL [Mass/Vol] 55 mg/dL 0-100 [facility] Comment on above: LDL ATP III CLASSIFI CATIONLDL less than 100 mg/dL OptimalLDL 100-129 mg/dL Near or above optimalLDL 130-159 mg/dL Borderline highLDL 160-189 mg/dL HighLDL greater than 189 mg/dL Very high Cholesterol in VLDL Calc [Ma ss/Vol]Ordered By: Sascha Sutton on 04-08-2023 Cholesterol in VLDL [Mass/Vol] 25 mg/dL [facility] Creatinine [Mass/volume] in Serum or PlasmaOrdered By: Sascha Sutton 04-08-2023 Creatinine [Mass/Vol] 0.85 mg/dL 0.70-1.30 [facility] Globulin Calc (S) [Mass/Vol] Ordered By: Sascha Sutton 04-08-2023 Globulin (S) [Mass/Vol] 2.1 g/dL [facility] Glucose [Mass/volume] in Ser um or PlasmaOrdered By: Sascha Sutton 04-08-2023 Glucose [Mass/Vol] 85 mg/dL 70-100 [facility] Comment on above: ADA recommended refe rence rangeRandom Glucose Reference Range is dependent on time and content of last meal. Glucose of more than 200 mg/dL in a nonstressed, ambulatory subject supports the diagnosis of Diabetes Mellitus. No Panel InformationOrdered By: Sascha Sutton on 04-08-2023 Estimated GFR (CKD-EPI) > 60.0 mL/Min [facility] Creatinine Clearance (Chem N/A [facility] Potassium [Moles/volume] in Serum or PlasmaOrdered By: Sascha Sutton on 04-08-2023 Potassium [Moles/Vol] 4.1 mmol/L 3.5-5.1 [facility] Prostate specific Ag [Mass/v olume] in Serum or PlasmaOrdered By: Sascha Sutton on 04-08-2023 Prostate specific Ag [Mass/Vol] 1.770 ng/mL 0.000-4.00 0 [facility] Protein [Mass/volume] in Ser um or PlasmaOrdered By: Sascha Sutton on 04-08-2023 Protein [Mass/Vol] 6.1 g/dL 6.4-8.9 [facility] Serum or plasma albumin/glob ulin mass ratioOrdered By: Sascha Sutton on 04-08-2023 Albumin/Globulin [Mass ratio] 1.9 {ratio} [facility] Serum or plasma anion gap de terminationOrdered By: Sascha Sutton on 04-08-2023 Anion gap [Moles/Vol] 9.0 mmol/L 6.0-15.0 [facility] Serum or plasma high density lipoprotein (HDL) cholesterol measurementOrdered By: Sascha Sutton on 04-08-2023 Cholesterol in HDL [Mass/Vol] 39 mg/dL 29-71 [facility] Comment on above: HDL CHOL ATP-III CLA SSIFICATION Cardiovascular RiskHDL > or equal to 60 mg/dL LOWHDL < 40 mg/dL HIGH Serum or plasma total choles terol/high density lipoprotein (HDL) cholesterol mass ratOrdered By: Sascha Sutton on 04-08-2023 Cholesterol.total/Chol esterol in HDL [Mass ratio] 3.1 {ratio} <5.0 [facility] Sodium [Moles/volume] in Ser um or PlasmaOrdered By: Sascha Sutton on 04-08-2023 Sodium [Moles/Vol] 140 mmol/L 136-145 [facility] Triglyceride [Mass/volume] i n Serum or PlasmaOrdered By: Sascha Sutton on 04-08-2023 Triglyceride [Mass/Vol] 125 mg/dL 0-149 [facility] Comment on above: TRIG ATP III CLASSIF ICATIONTRIG less than 150 mg/dL NormalTRIG 150-199 mg/dL Borderline highTRIG 200-500 mg/dL High TRIG greater than 500 mg/dL Very highStandard traceable to the Center for Disease Conrtrol and Prevention (CDC) test method. Urea nitrogen [Mass/volume] in Serum or PlasmaOrdered By: Sascha Sutton on 04-08-2023 Urea nitrogen [Mass/Vol] 17 mg/dL 7 [facility] Activated partial thrombopla stin time (aPTT) in platelet poor plasma by coagulation aOrdered By: Melanie Trujillo on 03-31-2023 aPTT Coag (PPP) [Time] 39.0 s 25.1-36.5 [facility] Basophils Auto (Bld) [#/Vol] Ordered By: Melanie Trujillo on 03-31-2023 Basophils (Bld) [#/Vol] 0.0 10*3/uL 0.0-0.2 [facility] Basophils/100 WBC Auto (Bld) Ordered By: Melanie Trujillo on 03-31-2023 Basophils/100 WBC (Bld) 0.6 % . [facility] Carbon dioxide, total [Moles /volume] in Serum or PlasmaOrdered By: Melanie Trujillo on 03-31-2023 CO2 [Moles/Vol] 26.4 mmol/L 21.0-31.0 [facility] Chloride [Moles/volume] in S ace or PlasmaOrdered By: Melanie Trujillo on 03-31-2023 Chloride [Moles/Vol] 106 mmol/L 98-107 [facility] Cholesterol [Mass/volume] in Serum or PlasmaOrdered By: Melanie Trujillo on 03-31-2023 Cholesterol [Mass/Vol] 132 mg/dL 140-200 [facility] Comment on above: Chol less than 200 m g/dl low riskChol 201-239 mg/dl borderline riskChol 240 mg/dl and greater high risk Cholesterol in LDL Calc [Mas s/Vol]Ordered By: Melanie Trujillo on 03-31-2023 Cholesterol in LDL [Mass/Vol] 71 mg/dL 0-100 [facility] Comment on above: LDL ATP III CLASSIFI CATIONLDL less than 100 mg/dL OptimalLDL 100-129 mg/dL Near or above optimalLDL 130-159 mg/dL Borderline highLDL 160-189 mg/dL HighLDL greater than 189 mg/dL Very high Cholesterol in VLDL Calc [Ma ss/Vol]Ordered By: Melanie Trujillo on 03-31-2023 Cholesterol in VLDL [Mass/Vol] 21 mg/dL [facility] Creatinine [Mass/volume] in Serum or PlasmaOrdered By: Melanie Trujillo on 03-31-2023 Creatinine [Mass/Vol] 0.88 mg/dL 0.70-1.30 [facility] Eosinophils Auto (Bld) [#/Vo l]Ordered By: Melanie Trujillo on 03-31-2023 Eosinophils (Bld) [#/Vol] 0.1 10*3/uL 0.0-0.45 [facility] Eosinophils/100 WBC Auto (Bl d)Ordered By: Melanie Trujillo on 03-31-2023 Eosinophils/100 WBC (Bld) 1.6 % . [facility] Erythrocyte distribution wid th Auto (RBC) [Ratio]Ordered By: Melanie Trujillo on 03-31-2023 Erythrocyte distribution width (RBC) [Ratio] 14.5 % 12.0-14.8 [facility] Hematocrit Auto (Bld) [Volum e fraction]Ordered By: Melanie Trujillo on 03-31-2023 Hematocrit (Bld) [Volume fraction] 46.7 % 38.8-50.0 [facility] Hemoglobin [Mass/volume] in BloodOrdered By: Melanie Trujillo on 03-31-2023 Hemoglobin (Bld) [Mass/Vol] 16.0 g/dL 13.0-17.0 [facility] Laboratory - Chemistry and C hemistry - challengeon 03-31-2023 Cholesterol [Mass/Vol] 132\S\132 below low threshold 140-200 -[facility] [employer] manda 250 DO Work Phone: Comment on above: Chol less than 200 m g/dl low risk Chol 201-239 mg/dl borderline risk Chol 240 mg/dl and greater high risk Cholesterol in LDL [Mass/Vol] 71\S\71 Normal 0-100 [facility] manda 250 DO Work Phone: Comment on above: LDL ATP III CLASSIFI CATION LDL less than 100 mg/dL Optimal LDL 100-129 mg/dL Near or above optimal LDL 130-159 mg/dL Borderline high LDL 160-189 mg/dL High LDL greater than 189 mg/dL Very high Laboratory - CoagulationOrde red By: Melanie Trujillo on 03-31-2023 PT Coag (PPP) [Time] 12.3 s 9.0-12.9 [facility] Leukocytes [#/volume] correc nat for nucleated erythrocytes in Blood by Automated counOrdered By: Melanie Trujillo on 03-31-2023 WBC corrected for nucl RBC Auto (Bld) [#/Vol] 5.7 10*3/uL 4.1-10.5 [facility] Lymphocytes Auto (Bld) [#/Vo l]Ordered By: Melanie Trujillo on 03-31-2023 Lymphocytes (Bld) [#/Vol] 0.8 10*3/uL 1.00-4.8 [facility] Lymphocytes/100 WBC Auto (Bl d)Ordered By: Melanie Trujillo on 03-31-2023 Lymphocytes/100 WBC (Bld) 13.8 % . [facility] MCH Auto (RBC) [Entitic mass ]Ordered By: Melanie Trujillo on 03-31-2023 MCH (RBC) [Entitic mass] 30.4 pg 27.5-35.2 [facility] MCHC Auto (RBC) [Mass/Vol]Or dered By: Melanie Trujillo on 03-31-2023 MCHC (RBC) [Mass/Vol] 34.2 g/dL 32.5-35.6 [facility] MCV Auto (RBC) [Entitic vol] Ordered By: Melanie Trujillo on 03-31-2023 MCV (RBC) [Entitic vol] 89.0 fL 83.5-101 [facility] Monocytes Auto (Bld) [#/Vol] Ordered By: Melanie Trujillo on 03-31-2023 Monocytes (Bld) [#/Vol] 0.8 10*3/uL 0.0-0.8 [facility] Monocytes/100 WBC Auto (Bld) Ordered By: Melanie Trujillo on 03-31-2023 Monocytes/100 WBC (Bld) 13.9 % . [facility] Neutrophils Auto (Bld) [#/Vo l]Ordered By: Melanie Trujillo on 03-31-2023 Neutrophils (Bld) [#/Vol] 4.0 10*3/uL 1.8-7.7 [facility] Neutrophils/100 WBC Auto (Bl d)Ordered By: Melanie Trujillo on 03-31-2023 Neutrophils/100 WBC (Bld) 70.1 % . [facility] No Panel InformationOrdered By: Melanie Trujillo on 03-31-2023 Estimated GFR (CKD-EPI) > 60.0 mL/Min [facility] Creatinine Clearance (Chem N/A [facility] No Panel Informationon 03-31 10.7\S\10.7 Normal 6.0-15.0 [facility] [employer] 250 DO Work Phone: 26.4\S\26.4 Normal 21.0-31.0 [facility] [employer] 250 DO Work Phone: 106\S\106 Normal 0-149 [facility] [employer] 250 DO Work Phone: Comment on above: TRIG ATP III CLASSIF ICATION TRIG less than 150 mg/dL Normal TRIG 150-199 mg/dL Borderline high TRIG 200-500 mg/dL High TRIG greater than 500 mg/dL Very high Standard traceable to the Center for Disease Conrtrol and Prevention (CDC) test method. 4.1\S\4.1 Normal 3.5-5.1 [facility] [employer] 250 DO Work Phone: 139\S\139 Normal 136-145 [facility] [employer] 250 DO Work Phone: 23\S\23 Normal 7-25 [facility] [employer] 250 DO Work Phone: > 60.0 Normal [facility] [employer] 250 DO Work Phone: 0.88\S\0.88 Normal 0.70-1.30 [facility] [place] [facility] manda 250 DO Work Phone: 3.3\S\3.3 Normal <5.0 -[facility] manda 250 DO Work Phone: Comment on above: PERFORMED BY:[facility] [place] [phone] MEDICAL DIRECTOROLMAN ALBARRAN M.D. 21\S\21 Normal -[facility] manda 250 DO Work Phone: 40\S\40 Normal 29-71 -[facility] manda 250 DO Work Phone: Comment on above: HDL CHOL ATP-III CLA SSIFICATION Cardiovascular Risk HDL > or equal to 60 mg/dL LOW HDL < 40 mg/dL HIGH 0.0\S\0.0 Normal 0.0-0.2 -[facility] manda 250 DO Work Phone: Comment on above: PERFORMED BY:[facility] [place], [place] [phone] MEDICAL DIRECTOROLMAN ALBARRAN M.D. 0.1\S\0.1 Normal 0-0.5 -[facility] manda 250 DO Work Phone: 0.8\S\0.8 below low threshold 1.00-4.8 -[facility] manda 250 DO Work Phone: 4.0\S\4.0 Normal 1.8-7.7 [facility] manda 250 DO Work Phone: [phone] 0.6\S\0.6 Normal . [facility] manda 250 DO Work Phone: 1.6\S\1.6 Normal . [facility] manda 250 DO Work Phone: [phone] 13.9\S\13.9 Normal . [facility] manda 250 DO Work Phone: 13.8\S\13.8 Normal . [facility] manda 250 DO Work Phone: [phone] 70.1\S\70.1 Normal . [facility] manda 250 DO Work Phone: [phone] 8.4\S\8.4 Normal 6.6-10.1 [facility] manda 250 DO Work Phone: [phone] 180\S\180 Normal 150-450 [facility] [employer]anda 250 DO Work Phone: [phone] 14.5\S\14.5 Normal 12.0-14.8 [facility] manda 250 DO Work Phone: [phone] 34.2\S\34.2 Normal 32.5-35.6 [facility] manda 250 DO Work Phone: [phone] 30.4\S\30.4 Normal 27.5-35.2 [facility] DO Work Phone: [phone] 89.0\S\89.0 Normal 83.5-101 [facility] manda 250 DO Work Phone: [phone] 46.7\S\46.7 Normal 38.8-50.0 [facility] 250 DO Work Phone: [phone] 16.0\S\16.0 Normal 13.0-17.0 [facility] m[facility] 250 DO Work Phone: [phone] 5.24\S\5.24 Normal 3.90-5.60 [facility] DO Work Phone: [phone] 5.7\S\5.7 Normal 4.1-10.5 [facility] DO Work Phone: [phone] 39.0\S\39.0 above high threshold 25.1-36.5 [facility] manda 250 DO Work Phone: Comment on above: PERFORMED BY:[facility] [place], [place] [phone] MEDICAL DIRECTOROLMAN ALBARRAN M.D. 1.1\S\1.1 Normal [facility] manda [employer] DO Work Phone: Comment on above: INR [...] valves: 3 - 4.5 12.3\S\12.3 Normal 9.0-12.9 [facility] manda [employer] DO Work Phone: Nucleated erythrocytes [Pres ence] in Blood by Automated countOrdered By: Melanie Trujillo on 03-31-2023 Nucleated RBC Auto Ql (Bld) 0.1 /100{WBC} 0-0.5 [facility] Platelet mean volume Auto (B ld) [Entitic vol]Ordered By: Melanie Trujillo on 03-31-2023 Platelet mean volume (Bld) [Entitic vol] 8.4 fL 6.6-10.1 [facility] Platelet poor plasma interna tional normalized ratio (INR) by coagulation assay (relatOrdered By: Melanie Trujillo on 03-31-2023 INR Coag (PPP) [Relative time] 1.1 {INR} [facility] Comment on above: INR Therapeutic [...] 03-31-2023 Platelets (Bld) [#/Vol] 180 10*3/uL 150-450 [facility] Potassium [Moles/volume] in Serum or PlasmaOrdered By: Melanie Trujillo on 03-31-2023 Potassium [Moles/Vol] 4.1 mmol/L 3.5-5.1 [facility] RBC Auto (Bld) [#/Vol]Ordere d By: Melanie Trujillo on 03-31-2023 RBC (Bld) [#/Vol] 5.24 10*6/uL 3.90-5.60 [facility] Serum or plasma anion gap de terminationOrdered By: Melanie Trujillo on 03-31-2023 Anion gap [Moles/Vol] 10.7 mmol/L 6.0-15.0 [facility] Serum or plasma high density lipoprotein (HDL) cholesterol measurementOrdered By: Melanie Trujillo on 03-31-2023 Cholesterol in HDL [Mass/Vol] 40 mg/dL 29-71 [facility] Comment on above: HDL CHOL ATP-III CLA SSIFICATION Cardiovascular RiskHDL > or equal to 60 mg/dL LOWHDL < 40 mg/dL HIGH Serum or plasma total choles terol/high density lipoprotein (HDL) cholesterol mass ratOrdered By: Melanie Trujillo on 03-31-2023 Cholesterol.total/Chol esterol in HDL [Mass ratio] 3.3 {ratio} <5.0 [facility] Sodium [Moles/volume] in Ser um or PlasmaOrdered By: Melanie Trujillo on 03-31-2023 Sodium [Moles/Vol] 139 mmol/L 136-145 [facility] Triglyceride [Mass/volume] i n Serum or PlasmaOrdered By: Melanie Trujillo on 03-31-2023 Triglyceride [Mass/Vol] 106 mg/dL 0-149 [facility] Comment on above: TRIG ATP III CLASSIF ICATIONTRIG less than 150 mg/dL NormalTRIG 150-199 mg/dL Borderline highTRIG 200-500 mg/dL High TRIG greater than 500 mg/dL Very highStandard traceable to the Center for Disease Conrtrol and Prevention (CDC) test method. Urea nitrogen [Mass/volume] in Serum or PlasmaOrdered By: Melanie Trujillo on 03-31-2023 Urea nitrogen [Mass/Vol] 23 mg/dL 7-25 [facility] WBC Auto (Bld) [#/Vol]Ordere d By: Melanie Trujillo on 03-31-2023 WBC (Bld) [#/Vol] 5.7 10*3/uL 4.1-10.5 [facility] Office Visit (Cardiology)on 03-30-2023 Follow-up visit Diagnoses/Problems Assessed Chest pain (786.50) (R07.9) SOB (shortness of breath) on exertion (786.05) (R06.02) Hyperlipemia (272.4) (E78.5) Hypertension (401.9) (I10) Class 1 obesity with body mass index (BMI) of 32.0 to 32.9 in adult (278.00,V85.32) (E66.9,Z68.32) Former smoker (V15.82) (Z87.891) quit in the ' 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 Patient has since [...] Allergies Medication (more content not included)... Normal [employer] Tobacco Screening.on 023 Adult depression screening assessment No [facility] [employer] 250 DO Work Phone: Fall risk assessment a) No falls within the last year [facility] [employer] 250 DO Work Phone: Tobacco use status CPHS b) No [facility] [employer] 250 DO Work Phone: ECHOCARDIO M/2D COMPLETEon 0 03-21-2023 ECHOCARDIO M/2D COMPLETE Patient: VALENTIN TORRE Exam Date: 03/21/2023 : 1955 Gender:M Ordering : SHAIKH Pee MULTANI . Admission #: [id number] Family : DR SASCHA SUTTON Order #: [id number] CLICK HERE TO VIEW EXAM ECHOCARDIOGRAM REPORT [...] Area (VTI): 3.04 cm2, 3.04 cm2 Deceleration [place]: 0.56 m/s2 Pressure Half-Time: 991.91 ms Peak [...] Huynh M.D. on 03/24/2023 at 12:21 Normal [facility] NM STRESS/REST MULTIon 03-21 NM STRESS/REST MULTI Patient: JANEL TORRE Exam Date: 03/21/2023 : 1955 Gender:M Ordering : SHAIKH Pee MULTANI . Admission #: [id number] Family : Order #: [id number] CLICK HERE TO VIEW EXAM RADIOLOGY REPORT [...] M.D. on 03/22/2023 at 11:30 Normal [facility] TROPONIN, HIGH SENSITIVITYon 03-21-2023 HSTROP 13.1 pg/mL Normal 4.0-76.1 [facility] Comment on above: Result Comment: CUT- OFF POINTS HAVE BEEN ESTABLISHED BASED ON THE FOURTH UNIVERSAL DEFINITIONS OF MYOCARDIAL INFARCTION. THE UPPER REFERENCE LIMIT (URL) OF TROPONIN, DEFINED THE 99TH PERCENTILE OF cTnI DISTRIBUTION IN A REFERENCE POPULATION, HAS BEEN CONFIRMED THE DECISION THRESHOLD FOR ID DIAGNOSIS. Performed By: #### H STROPN ####[facility] [address] [address]Dr. Jo De Dios BNPon 03-20-2023 Natriuretic peptide B (Bld) [Mass/Vol] 47.0 pg/mL Normal <=900.0 [facility] Comment on above: Performed By: #### B RED LEAD BURNER, CMP, CMADM #### [facility] [address] [address] [address] Jo De Dios CARDIAC YANETH ADMITon 023 CK [Catalytic activity/Vol] 149 U/L Normal 39-308 [facility] Comment on above: Performed By: #### B RED LEAD BURNER, CMP, CMADM ####[facility] [id number] [address]Dr. Jo De Dios CK.MB [Mass/Vol] 1.51 ng/mL Normal <=3.60 [facility] Comment on above: Performed By: #### B RED LEAD BURNER, CMP, CMADM ####[facility] [id number] [address]Dr. Jo De Dios HSTROP 14.8 pg/mL Normal 4.0-76.1 [facility] Comment on above: Result Comment: CUT- OFF POINTS HAVE BEEN ESTABLISHED BASED ON THE FOURTH UNIVERSAL DEFINITIONS OF MYOCARDIAL INFARCTION. THE UPPER REFERENCE LIMIT (URL) OF TROPONIN, DEFINED THE 99TH PERCENTILE OF cTnI DISTRIBUTION IN A REFERENCE POPULATION, HAS BEEN CONFIRMED THE DECISION THRESHOLD FOR ID DIAGNOSIS. Performed By: #### B RED LEAD BURNER, CMP, CMADM ####[facility] [id number] [id number]. Jo De Dios RAAD 55 ng/mL Normal 16-96 [facility] Comment on above: Performed By: #### B RED LEAD BURNER, CMP, CMADM ####[facility] [id number] [address]DrRigo De Dios CBC AUTO DIFFon 03-20-2023 BASO # 0.0 103/ul Normal 0.0-0.1 [facility] Comment on above: Performed By: #### C BC #### [facility] [address] [address] [address] Jo De Dios Basophils/100 WBC (Bld) 0.7 % Normal 0.2-2.0 [facility] Comment on above: Performed By: #### C BC #### [facility] [address] [address] [address] Jo De Dios EO # 0.1 103/ul Normal 0.0-0.7 [facility] Comment on above: Performed By: #### C BC #### [facility] [address] [address] [address] Jo De Dios Eosinophils/100 WBC (Bld) 1.5 % Normal 0.9-7.0 [facility] Comment on above: Performed By: #### C BC #### [facility] [address] [address] [address] Jo De Dios Erythrocyte distribution width (RBC) [Ratio] 14.3 % Normal 11.0-15.0 [facility] Comment on above: Performed By: #### C BC #### [facility] [address] [place] [address] Dr. Jo De Dios Hematocrit (Bld) [Volume fraction] 46.1 % Normal 42.0-54.0 [facility] Comment on above: Performed By: #### C BC #### [facility] [address] [place] [address] Dr. Jo De Dios Hemoglobin (Bld) [Mass/Vol] 15.9 g/dL Normal 14.0-18.0 [facility] Comment on above: Performed By: #### C BC #### [facility] [address] [place] [address] Dr. Jo De Dios IG # 0.03 10e3/ul Normal 0.00-0.03 [facility] Comment on above: Performed By: #### C BC #### [facility] [address] [place] [address] Dr. Jo De Dios IG % 0.5 % Normal 0.0-0.5 [facility] Comment on above: Performed By: #### C BC #### [facility] [address] [place] [address] Dr. Jo De Dios LYMPH # 0.8 103/ul Critically low 1.2-3.8 [facility] Comment on above: Performed By: #### C BC #### [facility] [address] [place] [address] Dr. Jo De Dios Lymphocytes/100 WBC (Bld) 12.6 % Critically low 20.5-60.0 [facility] Comment on above: Performed By: #### C BC #### [facility] [address] [place] [address] Dr. Jo De Dios MANUAL DIFF REQ NO Normal [facility] Comment on above: Performed By: #### C BC #### [facility] [address] [place] [address] Dr. Jo De Dios MCH (RBC) [Entitic mass] 30.1 pg Normal 25.9-34.0 [facility] Comment on above: Performed By: #### C BC #### [facility] [address] [place] [address] Dr. Jo De Dios MCHC (RBC) [Mass/Vol] 34.5 g/dL Normal 29.9-35.2 [facility] Comment on above: Performed By: #### C BC #### [facility] [address] [address] [address] Jo De Dios MCV (RBC) [Entitic vol] 87.1 fL Normal 80.0-94.0 [facility] Comment on above: Performed By: #### C BC #### [facility] [address] [address] [address] Jo De Dios MONO # 0.8 103/ul Normal 0.3-0.8 [facility] Comment on above: Performed By: #### C BC #### [facility] [address] [address] [address] Jo De Dios Monocytes/100 WBC (Bld) 13.7 % Critically high 1.7-12.0 [facility] Comment on above: Performed By: #### C BC #### [facility] [address] [place] [address] Dr. Jo De Dios NEUT # 4.4 103/ul Normal 1.4-6.5 [facility] Comment on above: Performed By: #### C BC #### [facility] [address] [place] [address] Dr. Jo De Dios Neutrophils/100 WBC (Bld) 71.0 % Normal 43.0-75.0 [facility] Comment on above: Performed By: #### C BC #### [facility] [address] [place] [address] Dr. Jo De Dios Platelet mean volume (Bld) [Entitic vol] 9.8 fL Normal 9.5-13.5 [facility] Comment on above: Performed By: #### C BC #### [facility] [address] [place] [address] Dr. Jo De Dios PLT 179 103/ul Normal 150-450 [facility] Comment on above: Performed By: #### C BC #### [facility] [address] [place] [address] Dr. Jo De Dios RBC 5.29 106/ul Normal 4.70-6.10 [facility] Comment on above: Performed By: #### C BC #### [facility] [address] [address] [address] Jo De Dios WBC 6.1 103/ul Normal 4.0-11.0 [facility] Comment on above: Performed By: #### C BC #### [facility] [id number] Jo De Dios CTA CHEST WO [...] NECK AND CHEST WALL: Unremarkable. MEDIASTINUM AND GURJIT: No mediastinal or hilar pathologic lymphadenopathy by [...] ROBERTA WOOD Date: 2023-03-20 16:10 Normal [facility] D-DIMERon 03-20-2023 D-DIMER 0.60 mg/L FEU Critically high <=0.59 [facility] Comment on above: Performed By: #### D DIM ####[facility] [address] [place], [place] [address]LuDr. Jo De Dios D-DIMER COMMENTS SEE BELOW Normal [facility] Comment on above: Result Comment: Incr [...] generalized hospitalization. Performed By: #### D DIM ####[facility] [address] [address]Dr. Jo De Dios ER URINE PROFILEon 3 Bilirubin Ql (U) Negative Normal NEGATIVE [facility] Comment on above: Performed By: #### E RUR #### [facility] [address] [place] [address] Dr. Jo De Dios Clarity (U) CLEAR Normal CLEAR [facility] Comment on above: Performed By: #### E RUR #### [facility] [address] [place] [address] Dr. Jo De Dios Color (U) LT. YELLOW Normal YELLOW [facility] Comment on above: Performed By: #### E RUR #### [facility] [address] [place] [address] Dr. Jo De Dios ERUAHD A micrscopic examina tion will be performed if indicated. Normal [facility] Comment on above: Performed By: #### E RUR #### [facility] [address] [place] [address] Dr. Jo De Dios Glucose Ql (U) Negative Normal NEGATIVE [facility] Comment on above: Performed By: #### E RUR #### [facility] [address] [place] [address] Dr. Jo De Dios Hemoglobin Ql (U) Negative Normal NEGATIVE [facility] Comment on above: Performed By: #### E RUR #### [facility] [address] [place] [address] Dr. Jo De Dios Ketones Ql (U) Negative Normal NEGATIVE [facility] Comment on above: Performed By: #### E RUR #### [facility] [address] [place] [address] Dr. Jo De Dios LEUKOCYTES Negative Normal NEGATIVE [facility] Comment on above: Performed By: #### E RUR #### [facility] [address] [place] [address] Dr. Jo De Dios Nitrite Ql (U) Negative Normal NEGATIVE [facility] Comment on above: Performed By: #### E RUR #### [facility] [address] [place] [address] Dr. Jo De Dios pH (U) 5.0 [pH] Normal 5-9 [facility] Comment on above: Performed By: #### E RUR #### [facility] [address] [place] [address] Dr. Jo De Dios SPEC GRAVITY 1.020 Normal 1.005-<=1. 025 [facility] Comment on above: Performed By: #### E RUR #### [facility] [address] [place] [address] Dr. Jo De Dios UA PROTEIN Negative Normal NEGATIVE/ TRACE [facility] Comment on above: Performed By: #### E RUR #### [facility] [address] [place] [address] Dr. Jo De Dios UR MICRO IND NOT INDICATED Normal [facility] Comment on above: Performed By: #### E RUR #### [facility] [address] [place] [address] Dr. Jo De Dios Urobilinogen Qn (U) 0.2 {Carrie'U}/dL Normal 0.2 - 1. 0 [facility] Comment on above: Performed By: #### E RUR #### [facility] [address] [place] [address] Dr. Jo De Dios GLYCOHEMOGLOBIN A1Con 2022 ADA RECOMMENDATION SEE BELOW Normal [facility] Comment on above: Result Comment: ADA RECOMMENDED LIMIT 4.0 - 6.0 ADA THERAPEUTIC TARGET < 7.0 ACTION SUGGESTED > 7.0 Performed By: #### A 1C #### [facility] [address] [place] [address] Dr. Jo De Dios Glucose [Mass/Vol] 103 mg/dL Normal [facility] Comment on above: Performed By: #### A 1C #### [facility] [address] [place] [address] Dr. Jo De Dios HbA1c (Bld) [Mass fraction] 5.2 % Normal 4.5-6.2 [facility] Comment on above: Performed By: #### A 1C #### [facility] [address] [address] [address] Jo De Dios LIPID PROFILEon 03-20-2023 CHOL-HDL RATIO NORM SEE BELOW Normal [facility] Comment on above: Result Comment: 3.3 - 4.4 LOW RISK 4.4 - 7.1 AVERAGE RISK 7.1 - 11.0 MODERATE RISK >11.0 HIGH RISK Performed By: #### L IPID #### [facility] [address] [address] [address] Jo De Dios Cholesterol [Mass/Vol] 132 mg/dL Normal <=200 [facility] Comment on above: Performed By: #### L IPID #### [facility] [address] [address] [address] Jo De Dios Cholesterol in HDL [Mass/Vol] 46 mg/dL Normal 40-60 [facility] Comment on above: Performed By: #### L IPID #### [facility] [address] [address] [address] Jo De Dios Cholesterol in LDL [Mass/Vol] 69.4 mg/dL Normal [facility] Comment on above: Performed By: #### L IPID #### [facility] [address] [address] [address] Jo De Dios Cholesterol.total/Chol esterol in HDL [Mass ratio] 2.9 {ratio} Normal [facility] Comment on above: Performed By: #### L IPID #### [facility] [address] [address] [address] Jo De Dios HDL NORMAL > or = 60 mg/dl - LO W CARDIOVASCULAR RISK <40 mg/dl - HIGH CARDIOVASCULAR RISK Normal [facility] Comment on above: Performed By: #### L IPID #### [facility] [address] [address] [address] Jo De Dios LDL CALC NORMAL SEE BELOW Normal [facility] Comment on above: Result Comment: <100 mg/dl OPTIMAL 100 - 129 mg/dl NEAR OR ABOVE OPTIMAL 130 - 159 mg/dl BORDERLINE HIGH 160 - 189 mg/dl HIGH >190 mg/dl VERY HIGH Performed By: #### L IPID #### [facility] [address] [place] [address] Dr. Jo De Dios Triglyceride [Mass/Vol] 83 mg/dL Normal <=150 [facility] Comment on above: Performed By: #### L IPID #### [facility] [address] [address] [address] Jo De Dios VLDL CALC 16.6 mg/dL Normal [facility] Comment on above: Performed By: #### L IPID #### [facility] [address] [place] [address] Dr. Jo De Dios PROF 14(COMP METB)on 023 Albumin [Mass/Vol] 3.7 g/dL Normal 3.4-5.0 [facility] Comment on above: Performed By: #### B RED LEAD BURNER, CMP, CMADM #### [facility] [address] [place] [address] Dr. Jo De Dios Albumin/Globulin [Mass ratio] 1.1 {ratio} Normal [facility] Comment on above: Performed By: #### B RED LEAD BURNER, CMP, CMADM #### [facility] [address] [place] [address] Dr. Jo De Dios ALP [Catalytic activity/Vol] 96 U/L Normal 46-116 [facility] Comment on above: Performed By: #### B RED LEAD BURNER, CMP, CMADM #### [facility] [address] [place] [address] Dr. Jo De Dios ALT [Catalytic activity/Vol] 41 U/L Normal 16-63 [facility] Comment on above: Performed By: #### B RED LEAD BURNER, CMP, CMADM #### [facility] [address] [place] [address] Dr. Jo De Dios Anion gap [Moles/Vol] 11.2 mmol/L Normal [facility] Comment on above: Performed By: #### B RED LEAD BURNER, CMP, CMADM #### [facility] [address] [address] [address] Jo De Dios AST [Catalytic activity/Vol] 25 U/L Normal 15-37 [facility] Comment on above: Performed By: #### B RED LEAD BURNER, CMP, CMADM #### [facility] [address] [place] [address] Dr. Jo De Dios Bilirubin [Mass/Vol] 0.8 mg/dL Normal 0.2-1.0 [facility] Comment on above: Performed By: #### B RED LEAD BURNER, CMP, CMADM #### [facility] [address] [place] [address] Dr. Jo De Dios Calcium [Mass/Vol] 8.8 mg/dL Normal 8.5-10.1 [facility] Comment on above: Performed By: #### B RED LEAD BURNER, CMP, CMADM #### [facility] [address] [place] [address] Dr. Jo De Dios Chloride [Moles/Vol] 109 mmol/L Critically high 98-107 [facility] Comment on above: Performed By: #### B RED LEAD BURNER, CMP, CMADM #### [facility] [address] [place] [address] Dr. Jo De Dios CO2 [Moles/Vol] 23.4 mmol/L Normal 21.0-32.0 [facility] Comment on above: Performed By: #### B RED LEAD BURNER, CMP, CMADM #### [facility] [address] [place] [address] Dr. Jo De Dios Creatinine [Mass/Vol] 0.84 mg/dL Normal 0.70-1.30 [facility] Comment on above: Performed By: #### B RED LEAD BURNER, CMP, CMADM #### [facility] [address] [place] [address] Dr. Jo De Dios EGFR-AF SLOVAK >60 Normal >=60 [facility] Comment on above: Performed By: #### B RED LEAD BURNER, CMP, CMADM #### [facility] [address] [place] [address] Dr. Jo De Dios EGFR-NON AF SLOVAK >60 Normal >=60 [facility] Comment on above: Performed By: #### B RED LEAD BURNER, CMP, CMADM #### [facility] [address] [address] [address] Jo De Dios Globulin (S) [Mass/Vol] 3.3 g/dL Normal [facility] Comment on above: Performed By: #### B RED LEAD BURNER, CMP, CMADM #### [facility] [address] [address] [address] Jo De Dios Glucose [Mass/Vol] 96 mg/dL Normal 74-106 [facility] Comment on above: Performed By: #### B RED LEAD BURNER, CMP, CMADM #### [facility] [address] [address] [address] Jo De Dios Potassium [Moles/Vol] 3.6 mmol/L Normal 3.5-5.1 [facility] Comment on above: Performed By: #### B RED LEAD BURNER, CMP, CMADM #### [facility] [address] [address] [address] Jo De Dios Protein [Mass/Vol] 7.0 g/dL Normal 6.4-8.2 [facility] Comment on above: Performed By: #### B RED LEAD BURNER, CMP, CMADM #### [facility] [address] [address] [address] Jo De Dios Sodium [Moles/Vol] 140 mmol/L Normal 136-145 [facility] Comment on above: Performed By: #### B RED LEAD BURNER, CMP, CMADM #### [facility] [address] [address] [address] Jo De Dios Urea nitrogen [Mass/Vol] 21.0 mg/dL Critically high 7.0-18.0 [facility] Comment on above: Performed By: #### B RED LEAD BURNER, CMP, CMADM #### [facility] [address] [place] [address] Dr. Jo De Dios Urea nitrogen/Creatinine [Mass ratio] 25.0 mg/mg Normal [facility] Comment on above: Performed By: #### B RED LEAD BURNER, CMP, CMADM #### [facility] [address] [address] [address] Jo De Dios PROTIMEon 03-20-2023 INR Coag (PPP) [Relative time] 0.96 {INR} Normal [facility] Comment on above: Performed By: #### P T, PTT ####[facility] [address] [address]Dr. Jo De Dios INR GUIDELINES SEE BELOW Normal [facility] Comment on above: Result Comment: BETSEY RED INR: 2.0 - 3.0 CONDITIONS NOT LISTED BELOW 2.5 - 3.5 FOR PROSTHETIC HEART VALVE REPLACEMENT 2.5 - 3.5 RECURRENT THROMBOSIS Performed By: #### P T, PTT ####[facility] [address] [address]Dr. Jo De Dios PT Coag (PPP) [Time] 10.2 s Normal 9.0-11.6 [facility] Comment on above: Performed By: #### P T, PTT ####[facility] [address] [address]Dr. Jo De Dios PTTon 03-20-2023 aPTT Coag (Bld) [Time] 30.0 s Normal 22.3-36.2 [facility] Comment on above: Performed By: #### P T, PTT ####[facility] [address] [place], [place] [address]Dr. Jo De Dios TROPONIN, HIGH SENSITIVITYon 03-20-2023 HSTROP 30.2 pg/mL Normal 4.0-76.1 [facility] Comment on above: Result Comment: CUT- OFF POINTS HAVE BEEN ESTABLISHED BASED ON THE FOURTH UNIVERSAL DEFINITIONS OF MYOCARDIAL INFARCTION. THE UPPER REFERENCE LIMIT (URL) OF TROPONIN, DEFINED THE 99TH PERCENTILE OF cTnI DISTRIBUTION IN A REFERENCE POPULATION, HAS BEEN CONFIRMED THE DECISION THRESHOLD FOR ID DIAGNOSIS. Performed By: #### H STROPN ####[facility] [address] [place], [place] [address]Dr. Jo De Dios XR CHEST 1 Von [...] GAVIN MINER Date: 2023-03-20 12:56 Normal [facility] Alanine aminotransferase [En zymatic activity/volume] in Serum or PlasmaOrdered By: Christine Sanchez on 01-31-2023 ALT [Catalytic activity/Vol] 34 U/L 7-52 [facility] Albumin [Mass/volume] in Ser um or Plasma by Bromocresol green (BCG) dye binding methoOrdered By: Christine Sanchez on 01-31-2023 Albumin BCG dye [Mass/Vol] 4.3 g/dL 3.5-5.7 [facility] Alkaline phosphatase [Enzyma tic activity/volume] in Serum or PlasmaOrdered By: Christine Sanchez on 01-31-2023 ALP [Catalytic activity/Vol] 70 U/L 34-104 [facility] Aspartate aminotransferase [ Enzymatic activity/volume] in Serum or PlasmaOrdered By: Christine Sanchez on 01-31-2023 AST [Catalytic activity/Vol] 23 U/L 13-39 [facility] Automated erythrocytes count in urine sediment (number/area)Ordered By: Christine Sanchez on 01-31-2023 RBC Auto (Urine sed) [#/Area] 1-2 [HPF] 0-4 [facility] Automated leukocytes count i n urine sediment (number/area)Ordered By: Christine Sanchez on 01-31-2023 WBC Auto (Urine sed) [#/Area] 1-2 [HPF] 0-4 [facility] Basophils Auto (Bld) [#/Vol] Ordered By: Christine Sanchez on 01-31-2023 Basophils (Bld) [#/Vol] 0.0 10*3/uL 0.0-0.2 [facility] Basophils/100 WBC Auto (Bld) Ordered By: Christine Sanchez on 01-31-2023 Basophils/100 WBC (Bld) 0.5 % . [facility] Bilirubin Test strip Ql (U)O rdered By: Christine Sanchez on 01-31-2023 Bilirubin Ql (U) Negative Negative [facility] Bilirubin.total [Mass/volume ] in Serum or PlasmaOrdered By: Christine Sanchez on 01-31-2023 Bilirubin [Mass/Vol] 0.8 mg/dL 0.3-1.0 [facility] Calcium [Mass/volume] in Ser um or PlasmaOrdered By: Christine Sanchez on 01-31-2023 Calcium [Mass/Vol] 8.9 mg/dL 8.6-10.3 [facility] Carbon dioxide, total [Moles /volume] in Serum or PlasmaOrdered By: Christine Sanchez on 01-31-2023 CO2 [Moles/Vol] 24.6 mmol/L 21.0-31.0 [facility] Chloride [Moles/volume] in S ace or PlasmaOrdered By: Christine Sanchez on 01-31-2023 Chloride [Moles/Vol] 108 mmol/L 98-107 [facility] Color Auto (U)Ordered By: Marianna Arellano on 01-31-2023 Color (U) Dark yellow Yellow [facility] Creatinine [Mass/volume] in Serum or PlasmaOrdered By: Christine Sanchez on 01-31-2023 Creatinine [Mass/Vol] 0.90 mg/dL 0.70-1.30 [facility] Eosinophils Auto (Bld) [#/Vo l]Ordered By: Christine Sanchez on 01-31-2023 Eosinophils (Bld) [#/Vol] 0.1 10*3/uL 0.0-0.45 [facility] Eosinophils/100 WBC Auto (Bl d)Ordered By: Christine Sanchez on 01-31-2023 Eosinophils/100 WBC (Bld) 1.2 % . [facility] Erythrocyte distribution wid th Auto (RBC) [Ratio]Ordered By: Christine Sanchez on 01-31-2023 Erythrocyte distribution width (RBC) [Ratio] 15.2 % 12.0-14.8 [facility] Erythrocyte sedimentation ra te by Photometric methodOrdered By: Christine Sanchez on 01-31-2023 ESR Photometric method (Bld) [Velocity] 3 mm/hr 0-19 [facility] Globulin Calc (S) [Mass/Vol] Ordered By: Christine Sanchez on 01-31-2023 Globulin (S) [Mass/Vol] 1.9 g/dL [facility] Glucose [Mass/volume] in Ser um or PlasmaOrdered By: Christine Sanchez on 01-31-2023 Glucose [Mass/Vol] 131 mg/dL 74-109 [facility] Comment on above: ADA recommended refe rence rangeRandom Glucose Reference Range is dependent on time and content of last meal. Glucose of more than 200 mg/dL in a nonstressed, ambulatory subject supports the diagnosis of Diabetes Mellitus. Hematocrit Auto (Bld) [Volum e fraction]Ordered By: Christine Sanchez on 01-31-2023 Hematocrit (Bld) [Volume fraction] 45.2 % 38.8-50.0 [facility] Hemoglobin [Mass/volume] in BloodOrdered By: Christine Sanchez on 01-31-2023 Hemoglobin (Bld) [Mass/Vol] 15.4 g/dL 13.0-17.0 [facility] Ketones Auto test strip (U) [Mass/Vol]Ordered By: Christine Sanchez on 01-31-2023 Ketones (U) [Mass/Vol] Trace Negative [facility] - Chemistry and C hemistry - challengeOrdered By: Christine Sanchez on 01-31-2023 GFR/1.73 sq M.predicted MDRD (S/P/Bld) [Vol rate/Area] mL/min/{1.73_m2} [facility] - UrinalysisOrder ed By: Christine Sanchez on 01-31-2023 Hyaline casts LM Ql (Urine sed) 0-8 [LPF] 0-8 [facility] Leukocytes [#/volume] correc nat for nucleated erythrocytes in Blood by Automated counOrdered By: Christine Sanchez on 01-31-2023 WBC corrected for nucl RBC Auto (Bld) [#/Vol] 4.5 10*3/uL 4.1-10.5 [facility] Lymphocytes Auto (Bld) [#/Vo l]Ordered By: Christine Sanchez on 01-31-2023 Lymphocytes (Bld) [#/Vol] 0.7 10*3/uL 1.00-4.8 [facility] Lymphocytes/100 WBC Auto (Bl d)Ordered By: Christine Sanchez on 01-31-2023 Lymphocytes/100 WBC (Bld) 15.3 % . [facility] MCH Auto (RBC) [Entitic mass ]Ordered By: Christine Sanchez on 01-31-2023 MCH (RBC) [Entitic mass] 30.4 pg 27.5-35.2 [facility] MCHC Auto (RBC) [Mass/Vol]Or dered By: Christine Sanchez on 01-31-2023 MCHC (RBC) [Mass/Vol] 34.1 g/dL 32.5-35.6 [facility] MCV Auto (RBC) [Entitic vol] Ordered By: Christine Sanchez on 01-31-2023 MCV (RBC) [Entitic vol] 89.0 fL 83.5-101 [facility] Monocytes Auto (Bld) [#/Vol] Ordered By: Christine Sanchez on 01-31-2023 Monocytes (Bld) [#/Vol] 0.4 10*3/uL 0.0-0.8 [facility] Monocytes/100 WBC Auto (Bld) Ordered By: Christine Sanchez on 01-31-2023 Monocytes/100 WBC (Bld) 9.0 % . [facility] Neutrophils Auto (Bld) [#/Vo l]Ordered By: Christine Sanchez on 01-31-2023 Neutrophils (Bld) [#/Vol] 3.3 10*3/uL 1.8-7.7 [facility] Neutrophils/100 WBC Auto (Bl d)Ordered By: Christine Sanchez on 01-31-2023 Neutrophils/100 WBC (Bld) 74.0 % . [facility] Nitrite Test strip Ql (U)Ord ered By: Crhistine Sanchez on 01-31-2023 Nitrite Ql (U) Negative Negative [facility] No Panel InformationOrdered By: Christine Sanchez on 01-31-2023 Pharmacy Creatinine Clearance (Chem N/A [facility] Total Complement (CH50) >60 U/mL >41 [facility] Comment on above: Age Male [...] to determine out of range values.Performed at: [facility] [id number] Director: Richy Ardon PhD, Phone: [phone] Nucleated erythrocytes [Pres ence] in Blood by Automated countOrdered By: Christine Sanchez on 01-31-2023 Nucleated RBC Auto Ql (Bld) 0.3 /100{WBC} 0-0.5 [facility] Platelet mean volume Auto (B ld) [Entitic vol]Ordered By: Christine Sanchez on 01-31-2023 Platelet mean volume (Bld) [Entitic vol] 8.5 fL 6.6-10.1 [facility] Platelets Auto (Bld) [#/Vol] Ordered By: Christine Sanchez on 01-31-2023 Platelets (Bld) [#/Vol] 163 10*3/uL 150-450 [facility] Potassium [Moles/volume] in Serum or PlasmaOrdered By: Christine Sanchez on 01-31-2023 Potassium [Moles/Vol] 3.7 mmol/L 3.5-5.1 [facility] Protein Auto test strip (U) [Mass/Vol]Ordered By: Christine Sanchez on 01-31-2023 Protein (U) [Mass/Vol] Trace mg/dL Negative [facility] Protein [Mass/volume] in Ser um or PlasmaOrdered By: Christine Sanchez on 01-31-2023 Protein [Mass/Vol] 6.2 g/dL 6.4-8.9 [facility] RBC Auto (Bld) [#/Vol]Ordere d By: Christine Sanchez on 01-31-2023 RBC (Bld) [#/Vol] 5.08 10*6/uL 3.90-5.60 [facility] Serum or plasma albumin/glob ulin mass ratioOrdered By: Christine Sanchez on 01-31-2023 Albumin/Globulin [Mass ratio] 2.3 {ratio} [facility] Serum or plasma anion gap de terminationOrdered By: Christine Sanchez on 01-31-2023 Anion gap [Moles/Vol] 11.1 mmol/L 6.0-15.0 [facility] Serum or plasma complement C 3 measurement (mass/volume)Ordered By: Christine Sanchez on 01-31-2023 Complement C3 [Mass/Vol] 124 mg/dL 82-167 [facility] Comment on above: Performed at: [place] [id number] Director: Richy Ardon PhD, Phone: [phone] Serum or plasma complement C 4 measurement (mass/volume)Ordered By: Christine Sanchez on 01-31-2023 Complement C4 [Mass/Vol] 16 mg/dL 12-38 [facility] Sodium [Moles/volume] in Ser um or PlasmaOrdered By: Christine Sanchez on 01-31-2023 Sodium [Moles/Vol] 140 mmol/L 136-145 [facility] Specific gravity Auto test s trip (U) [Rel density]Ordered By: Christine Sanchez on 01-31-2023 Specific gravity (U) [Rel density] 1.028 1.001-1.03 0 [facility] Squamous epithelial cells de tection in urine sediment by light microscopyOrdered By: Christine Sanchez on 01-31-2023 Epithelial cells.squamous LM Ql (Urine sed) 0-1 [HPF] 0-2 [facility] Urea nitrogen [Mass/volume] in Serum or PlasmaOrdered By: Christine Sanchez on 01-31-2023 Urea nitrogen [Mass/Vol] 23 mg/dL 7-25 [facility] Urine bacteria detection by automated methodOrdered By: Christine Sanchez on 01-31-2023 Bacteria Auto Ql (U) None seen None Seen [facility] Urine clarity by refractomet ry automatedOrdered By: Christine Sanchez on 01-31-2023 Clarity Refractometry automated (U) Turbid Clear [facility] Urine glucose measurement by automated test strip (mass/volume)Ordered By: Christine Sanchez on 01-31-2023 Glucose Auto test strip (U) [Mass/Vol] Normal mg/dL Normal [facility] Urine hemoglobin detection b y automated test stripOrdered By: Christine Sanchez on 01-31-2023 Hemoglobin Auto test strip Ql (U) Negative Negative [facility] Urine leukocyte esterase det ection by automated test stripOrdered By: Christine Sanchez on 01-31-2023 Leukocyte esterase Auto test strip Ql (U) 1+ Negative [facility] Urobilinogen Auto test strip (U) [Mass/Vol]Ordered By: Christine Sanchez on 01-31-2023 Urobilinogen (U) [Mass/Vol] Normal mg/dL Normal [facility] WBC Auto (Bld) [#/Vol]Ordere d By: Christine Sanchez on 01-31-2023 WBC (Bld) [#/Vol] 4.5 10*3/uL 4.1-10.5 [facility] pH Auto test strip (U)Ordere d By: Christine Sanchez on 01-31-2023 pH (U) 5.0 [pH] 5.0-9.0 [facility] Automated erythrocytes count in urine sediment (number/area)Ordered By: Christine Sanchez on 10-26-2022 RBC Auto (Urine sed) [#/Area] 0-1 [HPF] 0-4 [facility] Automated leukocytes count i n urine sediment (number/area)Ordered By: Christine Sanchez on 10-26-2022 WBC Auto (Urine sed) [#/Area] 0-1 [HPF] 0-4 [facility] Basophils Auto (Bld) [#/Vol] Ordered By: Christine Sanchez on 10-26-2022 Basophils (Bld) [#/Vol] 0.0 10*3/uL 0.0-0.2 [facility] Basophils/100 WBC Auto (Bld) Ordered By: Christine Sanchez on 10-26-2022 Basophils/100 WBC (Bld) 0.6 % . [facility] Bilirubin Test strip Ql (U)O rdered By: Christine Sanchez on 10-26-2022 Bilirubin Ql (U) Negative Negative [facility] Body fluid albumin measureme nt (mass/volume)Ordered By: Christine Sanchez on 10-26-2022 Albumin (Body fld) [Mass/Vol] 4.0 g/dL 3.2-5.5 [facility] Color Auto (U)Ordered By: Marianna Arellano on 10-26-2022 Color (U) Yellow Yellow [facility] Creatinine and Glomerular fi ltration rate.predicted panel (S/P/Bld)Ordered By: Christine Sanchez on 10-26-2022 Creatinine [Mass/Vol] 0.89 mg/dL 0.64-1.27 [facility] Eosinophils Auto (Bld) [#/Vo l]Ordered By: Christine Sanchez on 10-26-2022 Eosinophils (Bld) [#/Vol] 0.1 10*3/uL 0.0-0.45 [facility] Eosinophils/100 WBC Auto (Bl d)Ordered By: Christine Sanchez on 10-26-2022 Eosinophils/100 WBC (Bld) 1.9 % . [facility] Erythrocyte distribution wid th Auto (RBC) [Ratio]Ordered By: Christine Sanchez on 10-26-2022 Erythrocyte distribution width (RBC) [Ratio] 14.7 % 12.0-14.8 [facility] Erythrocyte sedimentation ra te by Photometric methodOrdered By: Christine Sanchez on 10-26-2022 ESR Photometric method (Bld) [Velocity] 6 mm/hr 0-19 [facility] Estimated glomerular filtrat ion rate (GFR) non- AmericanOrdered By: Christine Sanchez on 10-26-2022 GFR/1.73 sq M.predicted among non-blacks MDRD (S/P/Bld) [Vol rate/Area] > 60 mL/Min [facility] Globulin Calc (S) [Mass/Vol] Ordered By: Christine Sanchez on 10-26-2022 Globulin (S) [Mass/Vol] 2.2 g/dL [facility] Hematocrit Auto (Bld) [Volum e fraction]Ordered By: Christine Sanchez on 10-26-2022 Hematocrit (Bld) [Volume fraction] 45.5 % 38.8-50.0 [facility] Hemoglobin [Mass/volume] in BloodOrdered By: Christine Sanchez on 10-26-2022 Hemoglobin (Bld) [Mass/Vol] 15.5 g/dL 13.0-17.0 [facility] Ketones Auto test strip (U) [Mass/Vol]Ordered By: Christine Sanchez on 10-26-2022 Ketones (U) [Mass/Vol] Trace Negative [facility] Laboratory - UrinalysisOrder ed By: Christine Sanchez on 10-26-2022 Hyaline casts LM Ql (Urine sed) 0-8 [LPF] 0-8 [facility] Leukocytes [#/volume] correc nat for nucleated erythrocytes in Blood by Automated counOrdered By: Christine Sanchez on 10-26-2022 WBC corrected for nucl RBC Auto (Bld) [#/Vol] 4.7 10*3/uL 4.1-10.5 [facility] Lymphocytes Auto (Bld) [#/Vo l]Ordered By: Christine Sanchez on 10-26-2022 Lymphocytes (Bld) [#/Vol] 0.8 10*3/uL 1.00-4.8 [facility] Lymphocytes/100 WBC Auto (Bl d)Ordered By: Christine Sanchez on 10-26-2022 Lymphocytes/100 WBC (Bld) 16.8 % . [facility] MCH Auto (RBC) [Entitic mass ]Ordered By: Christine Sanchez on 10-26-2022 MCH (RBC) [Entitic mass] 30.4 pg 27.5-35.2 [facility] MCHC Auto (RBC) [Mass/Vol]Or dered By: Christine Sanchez on 10-26-2022 MCHC (RBC) [Mass/Vol] 33.9 g/dL 32.5-35.6 [facility] MCV Auto (RBC) [Entitic vol] Ordered By: Christine Sanchez on 10-26-2022 MCV (RBC) [Entitic vol] 89.6 fL 83.5-101 [facility] Monocytes Auto (Bld) [#/Vol] Ordered By: Christine Sanchez on 10-26-2022 Monocytes (Bld) [#/Vol] 0.6 10*3/uL 0.0-0.8 [facility] Monocytes/100 WBC Auto (Bld) Ordered By: Christine Sanchez on 10-26-2022 Monocytes/100 WBC (Bld) 12.8 % . [facility] Neutrophils Auto (Bld) [#/Vo l]Ordered By: Christine Sanchez on 10-26-2022 Neutrophils (Bld) [#/Vol] 3.2 10*3/uL 1.8-7.7 [facility] Neutrophils/100 WBC Auto (Bl d)Ordered By: Christine Sanchez on 10-26-2022 Neutrophils/100 WBC (Bld) 67.9 % . [facility] Nitrite Test strip Ql (U)Ord ered By: Christine Sanchez on 10-26-2022 Nitrite Ql (U) Negative Negative [facility] No Panel InformationOrdered By: Christine Sanchez on 10-26-2022 Estimated GFR () > 60 mL/Min [facility] Comment on above: GFR estimated refere nce range: According to KDOQI guidelines, <60 ml/min/1.73m2 is sufficient to diagnose a patient with chronic kidney disease. Pharmacy Creatinine Clearance (Chem N/A [facility] Nucleated erythrocytes [Pres ence] in Blood by Automated countOrdered By: Christine Sanchez on 10-26-2022 Nucleated RBC Auto Ql (Bld) 0.3 /100{WBC} 0-0.5 [facility] Platelet mean volume Auto (B ld) [Entitic vol]Ordered By: Christine Sanchez on 10-26-2022 Platelet mean volume (Bld) [Entitic vol] 8.3 fL 6.6-10.1 [facility] Platelets Auto (Bld) [#/Vol] Ordered By: Christine Sanchez on 10-26-2022 Platelets (Bld) [#/Vol] 203 10*3/uL 150-450 [facility] Protein Auto test strip (U) [Mass/Vol]Ordered By: Christine Sanchez on 10-26-2022 Protein (U) [Mass/Vol] Negative Negative [facility] Protein [Mass/volume] in Ser um or PlasmaOrdered By: Christine Sanchez on 10-26-2022 Protein [Mass/Vol] 6.2 g/dL 6.1-7.9 [facility] RBC Auto (Bld) [#/Vol]Ordere d By: Christine Sanchez on 10-26-2022 RBC (Bld) [#/Vol] 5.08 10*6/uL 3.90-5.60 [facility] Serum or plasma alanine calvert otransferase measurement without P-5'-P (enzymatic activiOrdered By: Christine Sanchez on 10-26-2022 ALT No additional P-5'-P [Catalytic activity/Vol] 40 U/L 10-60 [facility] Serum or plasma albumin/glob ulin mass ratioOrdered By: Christine Sanchez on 10-26-2022 Albumin/Globulin [Mass ratio] 1.8 {ratio} [facility] Serum or plasma alkaline kelsie sphatase measurement (enzymatic activity/volume)Ordered By: Christine Sanchez on 10-26-2022 ALP [Catalytic activity/Vol] 82 U/L 32-92 [facility] Serum or plasma anion gap de terminationOrdered By: Christine Sanchez on 10-26-2022 Anion gap [Moles/Vol] 16.9 mmol/L 6.0-15.0 [facility] Serum or plasma aspartate am inotransferase measurement (enzymatic activity/volume)Ordered By: Christine Sanchez on 10-26-2022 AST [Catalytic activity/Vol] 24 U/L 10-42 [facility] Serum or plasma calcium ophelia urement (mass/volume)Ordered By: Christine Sanchez on 10-26-2022 Calcium [Mass/Vol] 9.6 mg/dL 8.2-10.2 [facility] Serum or plasma chloride arelis surement (moles/volume)Ordered By: Christine Sanchez on 10-26-2022 Chloride [Moles/Vol] 102 mmol/L 95-114 [facility] Serum or plasma glucose ophelia urement (mass/volume)Ordered By: Christine Sanchez on 10-26-2022 Glucose [Mass/Vol] 105 mg/dL 70-100 [facility] Comment on above: ADA recommended refe rence rangeRandom Glucose Reference Range is dependent on time and content of last meal. Glucose of more than 200 mg/dL in a nonstressed, ambulatory subject supports the diagnosis of Diabetes Mellitus. Serum or plasma potassium me asurement (moles/volume)Ordered By: Christine Sanchez on 10-26-2022 Potassium [Moles/Vol] 4.1 mmol/L 3.5-5.1 [facility] Serum or plasma sodium measu rement (moles/volume)Ordered By: Christine Sanchez on 10-26-2022 Sodium [Moles/Vol] 136 mmol/L 136-146 [facility] Serum or plasma total biliru bin measurement (mass/volume)Ordered By: Christine Sanchez on 10-26-2022 Bilirubin [Mass/Vol] 0.8 mg/dL 0.3-1.2 [facility] Serum or plasma total carbon dioxide measurement (moles/volume)Ordered By: Christine Sanchez on 10-26-2022 CO2 [Moles/Vol] 21.2 mmol/L 22.0-30.0 [facility] Serum or plasma urea nitroge n measurement (mass/volume)Ordered By: Christine Sanchez on 10-26-2022 Urea nitrogen [Mass/Vol] 16 mg/dL 9-23 [facility] Specific gravity Auto test s trip (U) [Rel density]Ordered By: Christine Sanchez on 10-26-2022 Specific gravity (U) [Rel density] 1.024 1.001-1.03 0 [facility] Squamous epithelial cells de tection in urine sediment by light microscopyOrdered By: Christine Sanchez on 10-26-2022 Epithelial cells.squamous LM Ql (Urine sed) None seen [HPF] 0-2 [facility] Urine bacteria detection by automated methodOrdered By: Christine Sanchez on 10-26-2022 Bacteria Auto Ql (U) None seen None Seen [facility] Urine clarity by refractomet ry automatedOrdered By: Christine Sanchez on 10-26-2022 Clarity Refractometry automated (U) Clear Clear [facility] Urine glucose measurement by automated test strip (mass/volume)Ordered By: Christine Sanchez on 10-26-2022 Glucose Auto test strip (U) [Mass/Vol] Normal mg/dL Normal [facility] Urine hemoglobin detection b y automated test stripOrdered By: Christine Sanchez on 10-26-2022 Hemoglobin Auto test strip Ql (U) Negative Negative [facility] Urine leukocyte esterase det ection by automated test stripOrdered By: Christine Sanchez on 10-26-2022 Leukocyte esterase Auto test strip Ql (U) Negative Negative [facility] Urobilinogen Auto test strip (U) [Mass/Vol]Ordered By: Christine Sanchez on 10-26-2022 Urobilinogen (U) [Mass/Vol] Normal mg/dL Normal [facility] WBC Auto (Bld) [#/Vol]Ordere d By: Christine Sanchez on 10-26-2022 WBC (Bld) [#/Vol] 4.7 10*3/uL 4.1-10.5 [facility] pH Auto test strip (U)Ordere d By: Christine Sanchez on 10-26-2022 pH (U) 5.5 [pH] 5.0-9.0 [facility] Automated erythrocytes count in urine sediment (number/area)Ordered By: Christine Sanchez on 07-21-2022 RBC Auto (Urine sed) [#/Area] 0-1 [HPF] 0-4 [facility] Automated leukocytes count i n urine sediment (number/area)Ordered By: Christine Sanchez on 07-21-2022 WBC Auto (Urine sed) [#/Area] 0-1 [HPF] 0-4 [facility] Basophils Auto (Bld) [#/Vol] Ordered By: Christine Sanchez on 07-21-2022 Basophils (Bld) [#/Vol] 0.0 10*3/uL 0.0-0.2 [facility] Basophils/100 WBC Auto (Bld) Ordered By: Christine Sanchez on 07-21-2022 Basophils/100 WBC (Bld) 0.6 % . [facility] Bilirubin Test strip Ql (U)O rdered By: Christine Sanchez on 07-21-2022 Bilirubin Ql (U) Negative Negative [facility] Body fluid albumin measureme nt (mass/volume)Ordered By: Christine Sanchez on 07-21-2022 Albumin (Body fld) [Mass/Vol] 3.9 g/dL 3.2-5.5 [facility] Color Auto (U)Ordered By: Marianna Arellano on 07-21-2022 Color (U) Yellow Yellow [facility] Creatinine and Glomerular fi ltration rate.predicted panel (S/P/Bld)Ordered By: Christine Sanchez on 07-21-2022 Creatinine [Mass/Vol] 0.91 mg/dL 0.64-1.27 [facility] Eosinophils Auto (Bld) [#/Vo l]Ordered By: Christine Sanchez on 07-21-2022 Eosinophils (Bld) [#/Vol] 0.1 10*3/uL 0.0-0.45 [facility] Eosinophils/100 WBC Auto (Bl d)Ordered By: Christine Sanchez on 07-21-2022 Eosinophils/100 WBC (Bld) 1.6 % . [facility] Erythrocyte distribution wid th Auto (RBC) [Ratio]Ordered By: Christine Sanchez on 07-21-2022 Erythrocyte distribution width (RBC) [Ratio] 15.2 % 12.0-14.8 [facility] Erythrocyte sedimentation ra te by Photometric methodOrdered By: Christine Sanchez on 07-21-2022 ESR Photometric method (Bld) [Velocity] 9 mm/hr 0-19 [facility] Estimated glomerular filtrat ion rate (GFR) non- AmericanOrdered By: Christine Sanchez on 07-21-2022 GFR/1.73 sq M.predicted among non-blacks MDRD (S/P/Bld) [Vol rate/Area] > 60 mL/Min [facility] Globulin Calc (S) [Mass/Vol] Ordered By: Christine Sanchez on 07-21-2022 Globulin (S) [Mass/Vol] 2.1 g/dL [facility] Hematocrit Auto (Bld) [Volum e fraction]Ordered By: Christine Sanchez on 07-21-2022 Hematocrit (Bld) [Volume fraction] 45.4 % 38.8-50.0 [facility] Hemoglobin [Mass/volume] in BloodOrdered By: Christine Sanchez on 07-21-2022 Hemoglobin (Bld) [Mass/Vol] 15.2 g/dL 13.0-17.0 [facility] Ketones Auto test strip (U) [Mass/Vol]Ordered By: Christine Sanchez on 07-21-2022 Ketones (U) [Mass/Vol] Negative Negative [facility] Laboratory - Hematology and Cell countsOrdered By: Christine Sanchez on 07-21-2022 Nucleated RBC/100 WBC (Bld) [Ratio] 0.1 % 0-0.5 [facility] Laboratory - UrinalysisOrder ed By: Christine Sanchez on 07-21-2022 Hyaline casts LM Ql (Urine sed) 0-8 [LPF] 0-8 [facility] Leukocytes [#/volume] in Blo od by Automated countOrdered By: Christine Sanchez on 07-21-2022 WBC (Bld) [#/Vol] 6.6 10*3/uL 4.5-11.0 [facility] Lymphocytes Auto (Bld) [#/Vo l]Ordered By: Christine Sanchez on 07-21-2022 Lymphocytes (Bld) [#/Vol] 0.8 10*3/uL 1.00-4.8 [facility] Lymphocytes/100 WBC Auto (Bl d)Ordered By: Christine Sanchez on 07-21-2022 Lymphocytes/100 WBC (Bld) 11.5 % . [facility] MCH Auto (RBC) [Entitic mass ]Ordered By: Christine Sanchez on 07-21-2022 MCH (RBC) [Entitic mass] 30.3 pg 27.5-35.2 [facility] MCHC Auto (RBC) [Mass/Vol]Or dered By: Christine Sanchez on 07-21-2022 MCHC (RBC) [Mass/Vol] 33.5 g/dL 32.5-35.6 [facility] MCV Auto (RBC) [Entitic vol] Ordered By: Christine Sanchez on 07-21-2022 MCV (RBC) [Entitic vol] 90.4 fL 83.5-101 [facility] Monocytes Auto (Bld) [#/Vol] Ordered By: Christine Sanchez on 07-21-2022 Monocytes (Bld) [#/Vol] 0.9 10*3/uL 0.0-0.8 [facility] Monocytes/100 WBC Auto (Bld) Ordered By: Christine Sanchez on 07-21-2022 Monocytes/100 WBC (Bld) 13.7 % . [facility] Neutrophils Auto (Bld) [#/Vo l]Ordered By: Christine Sanchez on 07-21-2022 Neutrophils (Bld) [#/Vol] 4.8 10*3/uL 1.8-7.7 [facility] Neutrophils/100 WBC Auto (Bl d)Ordered By: Christine Sanchez on 07-21-2022 Neutrophils/100 WBC (Bld) 72.6 % . [facility] Nitrite Test strip Ql (U)Ord ered By: Christine Sanchez on 07-21-2022 Nitrite Ql (U) Negative Negative [facility] No Panel InformationOrdered By: Christine Sanchez on 07-21-2022 Estimated GFR () > 60 mL/Min [facility] Comment on above: GFR estimated refere nce range: According to KDOQI guidelines, <60 ml/min/1.73m2 is sufficient to diagnose a patient with chronic kidney disease. Pharmacy Creatinine Clearance (Chem N/A [facility] Total Complement (CH50) >60 U/mL >41 [facility] Comment on above: Age Male [...] to determine out of range values.Performed at: [facility] [address] [id number] Director: Richy Ardon PhD, Phone: [phone] Platelet mean volume Auto (B ld) [Entitic vol]Ordered By: Christine Sanchez on 07-21-2022 Platelet mean volume (Bld) [Entitic vol] 8.4 fL 6.6-10.1 [facility] Platelets Auto (Bld) [#/Vol] Ordered By: Christine Sanchez on 07-21-2022 Platelets (Bld) [#/Vol] 185 10*3/uL 150-450 [facility] Protein Auto test strip (U) [Mass/Vol]Ordered By: Christine Sanchez on 07-21-2022 Protein (U) [Mass/Vol] Negative Negative [facility] Protein [Mass/volume] in Ser um or PlasmaOrdered By: Christine Sanchez on 07-21-2022 Protein [Mass/Vol] 6.0 g/dL 6.1-7.9 [facility] RBC Auto (Bld) [#/Vol]Ordere d By: Christine Sanchez on 07-21-2022 RBC (Bld) [#/Vol] 5.03 10*6/uL 3.90-5.60 [facility] Serum or plasma alanine calvert otransferase measurement without P-5'-P (enzymatic activiOrdered By: Chirstine Sanchez on 07-21-2022 ALT No additional P-5'-P [Catalytic activity/Vol] 35 U/L 10-60 [facility] Serum or plasma albumin/glob ulin mass ratioOrdered By: Christine Sanchez on 07-21-2022 Albumin/Globulin [Mass ratio] 1.9 {ratio} [facility] Serum or plasma alkaline kelsie sphatase measurement (enzymatic activity/volume)Ordered By: Christine Sanchez on 07-21-2022 ALP [Catalytic activity/Vol] 81 U/L 32-92 [facility] Serum or plasma anion gap de terminationOrdered By: Christine Sanchez on 07-21-2022 Anion gap [Moles/Vol] 13.7 mmol/L 6.0-15.0 [facility] Serum or plasma aspartate am inotransferase measurement (enzymatic activity/volume)Ordered By: Christine Sanchez on 07-21-2022 AST [Catalytic activity/Vol] 20 U/L 10-42 [facility] Serum or plasma calcium ophelia urement (mass/volume)Ordered By: Christine Sanchez on 07-21-2022 Calcium [Mass/Vol] 9.5 mg/dL 8.2-10.2 [facility] Serum or plasma chloride arelis surement (moles/volume)Ordered By: Christine Sanchez on 07-21-2022 Chloride [Moles/Vol] 103 mmol/L 95-114 [facility] Serum or plasma complement C 3 measurement (mass/volume)Ordered By: Christien Sanchez on 07-21-2022 Complement C3 [Mass/Vol] 145 mg/dL 82-167 [facility] Comment on above: Performed at: [address] [id number] Director: Richy Ardon PhD, Phone: [phone] Serum or plasma complement C 4 measurement (mass/volume)Ordered By: Christine Sanchez on 07-21-2022 Complement C4 [Mass/Vol] 23 mg/dL 12-38 [facility] Serum or plasma glucose ophelia urement (mass/volume)Ordered By: Christine Sanchez on 07-21-2022 Glucose [Mass/Vol] 83 mg/dL 70-100 [facility] Comment on above: ADA recommended refe rence rangeRandom Glucose Reference Range is dependent on time and content of last meal. Glucose of more than 200 mg/dL in a nonstressed, ambulatory subject supports the diagnosis of Diabetes Mellitus. Serum or plasma potassium me asurement (moles/volume)Ordered By: Christine Sanchez on 07-21-2022 Potassium [Moles/Vol] 4.1 mmol/L 3.5-5.1 [facility] Serum or plasma sodium measu rement (moles/volume)Ordered By: Christine Sanchez on 07-21-2022 Sodium [Moles/Vol] 135 mmol/L 136-146 [facility] Serum or plasma total biliru bin measurement (mass/volume)Ordered By: Christine Sanchez on 07-21-2022 Bilirubin [Mass/Vol] 0.9 mg/dL 0.3-1.2 [facility] Serum or plasma total carbon dioxide measurement (moles/volume)Ordered By: Christine Sanchez on 07-21-2022 CO2 [Moles/Vol] 22.4 mmol/L 22.0-30.0 [facility] Serum or plasma urea nitroge n measurement (mass/volume)Ordered By: Christine Sanchez on 07-21-2022 Urea nitrogen [Mass/Vol] 15 mg/dL 9-23 [facility] Specific gravity Auto test s trip (U) [Rel density]Ordered By: Christine Sanchez on 07-21-2022 Specific gravity (U) [Rel density] 1.020 1.001-1.03 0 [facility] Squamous epithelial cells de tection in urine sediment by light microscopyOrdered By: Christine Sanchez on 07-21-2022 Epithelial cells.squamous LM Ql (Urine sed) None seen [HPF] 0-2 [facility] [facility] bacteria detection by automated methodOrdered By: Christine Sanchez on 07-21-2022 Bacteria Auto Ql (U) None seen None Seen [facility] Urine clarity by refractomet ry automatedOrdered By: Christine Sanchez on 07-21-2022 Clarity Refractometry automated (U) Clear Clear [facility] Urine glucose measurement by automated test strip (mass/volume)Ordered By: Christine Sanchez on 07-21-2022 Glucose Auto test strip (U) [Mass/Vol] Normal mg/dL Normal [facility] Urine hemoglobin detection b y automated test stripOrdered By: Christine Sanchez on 07-21-2022 Hemoglobin Auto test strip Ql (U) Negative Negative [facility] Urine leukocyte esterase det ection by automated test stripOrdered By: Christine Sanchez on 07-21-2022 Leukocyte esterase Auto test strip Ql (U) Negative Negative [facility] Urobilinogen Auto test strip (U) [Mass/Vol]Ordered By: Christine Sanchez on 07-21-2022 Urobilinogen (U) [Mass/Vol] Normal mg/dL Normal [facility] pH Auto test strip (U)Ordere d By: Christine Sanchez on 07-21-2022 pH (U) 6.0 [pH] 5.0-9.0 [facility] Automated erythrocytes count in urine sediment (number/area)Ordered By: Romel Davis on 04-14-2022 RBC Auto (Urine sed) [#/Area] 5-9 [HPF] [facility] Automated leukocytes count i n urine sediment (number/area)Ordered By: Romel Davis on 04-14-2022 WBC Auto (Urine sed) [#/Area] 0-1 [HPF] [facility] Basophils Auto (Bld) [#/Vol] Ordered By: Romel Davis on 04-14-2022 Basophils (Bld) [#/Vol] 0.0 10*3/uL 0.0-0.2 [facility] Basophils/100 WBC Auto (Bld) Ordered By: Romel Davis on 04-14-2022 Basophils/100 WBC (Bld) 0.6 % [facility] Bilirubin Test strip Ql (U)O rdered By: Romel Davis on 04-14-2022 Bilirubin Ql (U) Negative Negative [facility] Blood hemoglobin measurement (mass/volume)Ordered By: Romel Davis on 04-14-2022 Hemoglobin (Bld) [Mass/Vol] 15.4 g/dL 13.0-17.0 [facility] Blood leukocytes automated c ount (number/volume)Ordered By: Romel Davis on 04-14-2022 WBC (Bld) [#/Vol] 5.8 10*3/uL 4.5-11.0 [facility] Body fluid albumin measureme nt (mass/volume)Ordered By: Roeml Davis on 04-14-2022 Albumin (Body fld) [Mass/Vol] 3.9 g/dL 3.2-5.5 [facility] Cholesterol [Mass/volume] in Serum or PlasmaOrdered By: Sascha Sutton on 04-14-2022 Cholesterol [Mass/Vol] 125 mg/dL 140-200 [facility] Comment on above: Chol less than 200 m g/dl low risk Chol 201-239 mg/dl borderline risk Chol 240 mg/dl and greater high risk Cholesterol in LDL Calc [Mas s/Vol]Ordered By: Sascha Sutton on 04-14-2022 Cholesterol in LDL [Mass/Vol] 69 mg/dL 0-100 [facility] Comment on above: LDL ATP III CLASSIFI CATION LDL less than 100 mg/dL Optimal LDL 100-129 mg/dL Near or above optimal LDL 130-159 mg/dL Borderline high LDL 160-189 mg/dL High LDL greater than 189 mg/dL Very high Cholesterol in VLDL Calc [Ma ss/Vol]Ordered By: Sascha Sutton on 04-14-2022 Cholesterol in VLDL [Mass/Vol] 15 mg/dL [facility] Color Auto (U)Ordered By: Bridgett Davis on 04-14-2022 Color (U) Yellow Yellow [facility] Creatinine and Glomerular fi ltration rate.predicted panel (S/P/Bld)Ordered By: Romel Davis on 04-14-2022 Creatinine [Mass/Vol] 0.86 mg/dL 0.64-1.27 [facility] Eosinophils Auto (Bld) [#/Vo l]Ordered By: Romel Davis on 04-14-2022 Eosinophils (Bld) [#/Vol] 0.1 10*3/uL 0.0-0.45 [facility] Eosinophils/100 WBC Auto (Bl d)Ordered By: Romel Davis on 04-14-2022 Eosinophils/100 WBC (Bld) 1.5 % [facility] Erythrocyte distribution wid th Auto (RBC) [Ratio]Ordered By: Romel Davis on 04-14-2022 Erythrocyte distribution width (RBC) [Ratio] 14.6 % 12.0-14.8 [facility] Erythrocyte sedimentation ra te by Photometric methodOrdered By: Romel Davis on 04-14-2022 ESR Photometric method (Bld) [Velocity] 5 mm/hr 0-19 [facility] Estimated glomerular filtrat ion rate (GFR) non- AmericanOrdered By: Romel Davis on 04-14-2022 GFR/1.73 sq M.predicted among non-blacks MDRD (S/P/Bld) [Vol rate/Area] > 60 mL/Min [facility] Globulin Calc (S) [Mass/Vol] Ordered By: Romel Davis on 04-14-2022 Globulin (S) [Mass/Vol] 2.3 g/dL [facility] Hematocrit Auto (Bld) [Volum e fraction]Ordered By: Romel Davis on 04-14-2022 Hematocrit (Bld) [Volume fraction] 45.0 % 38.8-50.0 [facility] Ketones Auto test strip (U) [Mass/Vol]Ordered By: Romel Davis on 04-14-2022 Ketones (U) [Mass/Vol] Trace Negative [facility] Laboratory - Hematology and Cell countsOrdered By: Romel Davis on 04-14-2022 Nucleated RBC/100 WBC (Bld) [Ratio] 0.1 % 0-0.5 [facility] Laboratory - UrinalysisOrder ed By: Romel Davis on 04-14-2022 Hyaline casts LM Ql (Urine sed) 0-8 [LPF] [facility] Lymphocytes Auto (Bld) [#/Vo l]Ordered By: Romel Davis on 04-14-2022 Lymphocytes (Bld) [#/Vol] 0.6 10*3/uL 1.00-4.8 [facility] Lymphocytes/100 WBC Auto (Bl d)Ordered By: Romel Davis on 04-14-2022 Lymphocytes/100 WBC (Bld) 10.9 % [facility] MCH Auto (RBC) [Entitic mass ]Ordered By: Romel Davis on 04-14-2022 MCH (RBC) [Entitic mass] 30.5 pg 27.5-35.2 [facility] MCHC Auto (RBC) [Mass/Vol]Or dered By: Romel Davis on 04-14-2022 MCHC (RBC) [Mass/Vol] 34.2 g/dL 32.5-35.6 [facility] MCV Auto (RBC) [Entitic vol] Ordered By: Romel Davis on 04-14-2022 MCV (RBC) [Entitic vol] 89.3 fL 83.5-101 [facility] Monocytes Auto (Bld) [#/Vol] Ordered By: Romel Davis on 04-14-2022 Monocytes (Bld) [#/Vol] 0.7 10*3/uL 0.0-0.8 [facility] Monocytes/100 WBC Auto (Bld) Ordered By: Romel Davis on 04-14-2022 Monocytes/100 WBC (Bld) 12.2 % [facility] Neutrophils Auto (Bld) [#/Vo l]Ordered By: Romel Davis on 04-14-2022 Neutrophils (Bld) [#/Vol] 4.4 10*3/uL 1.8-7.7 [facility] Neutrophils/100 WBC Auto (Bl d)Ordered By: Romel Davis on 04-14-2022 Neutrophils/100 WBC (Bld) 74.8 % [facility] Nitrite Test strip Ql (U)Ord ered By: Romel Davis on 04-14-2022 Nitrite Ql (U) Negative Negative [facility] No Panel InformationOrdered By: Romel Davis on 04-14-2022 Estimated GFR () > 60 mL/Min [facility] Comment on above: GFR estimated refere nce range: According to KDOQI guidelines, <60 ml/min/1.73m2 is sufficient to diagnose a patient with chronic kidney disease. Pharmacy Creatinine Clearance (Chem N/A [facility] No Panel InformationOrdered By: Sascha Sutton on 04-14-2022 Prostate Specific Antigen Screen 1.930 ng/mL 0.000-4.00 0 [facility] Platelet mean volume Auto (B ld) [Entitic vol]Ordered By: Romel Davis on 04-14-2022 Platelet mean volume (Bld) [Entitic vol] 8.8 fL 6.6-10.1 [facility] Platelets Auto (Bld) [#/Vol] Ordered By: Romel Davis on 04-14-2022 Platelets (Bld) [#/Vol] 181 10*3/uL 150-450 [facility] Protein Auto test strip (U) [Mass/Vol]Ordered By: Romel Davis on 04-14-2022 Protein (U) [Mass/Vol] Trace mg/dL Negative [facility] Protein [Mass/volume] in Ser um or PlasmaOrdered By: Romel Davis on 04-14-2022 Protein [Mass/Vol] 6.2 g/dL 6.1-7.9 [facility] RBC Auto (Bld) [#/Vol]Ordere d By: Romel Davis on 04-14-2022 RBC (Bld) [#/Vol] 5.03 10*6/uL 3.90-5.60 [facility] Serum or plasma alanine calvert otransferase measurement without P-5'-P (enzymatic activiOrdered By: Romel Davis on 04-14-2022 ALT No additional P-5'-P [Catalytic activity/Vol] 27 U/L 10-60 [facility] Serum or plasma albumin/glob ulin mass ratioOrdered By: Romel Davis on 04-14-2022 Albumin/Globulin [Mass ratio] 1.7 {ratio} [facility] Serum or plasma alkaline kelsie sphatase measurement (enzymatic activity/volume)Ordered By: Romel Davis on 04-14-2022 ALP [Catalytic activity/Vol] 77 U/L 32-92 [facility] Serum or plasma aspartate am inotransferase measurement (enzymatic activity/volume)Ordered By: Romel Davis on 04-14-2022 AST [Catalytic activity/Vol] 20 U/L 10-42 [facility] Serum or plasma calcium ophelia urement (mass/volume)Ordered By: Romel Davis on 04-14-2022 Calcium [Mass/Vol] 9.0 mg/dL 8.2-10.2 [facility] Serum or plasma chloride arelis surement (moles/volume)Ordered By: Romel Davis on 04-14-2022 Chloride [Moles/Vol] 104 mmol/L 95-114 [facility] Serum or plasma glucose ophelia urement (mass/volume)Ordered By: Romel Davis on 04-14-2022 Glucose [Mass/Vol] 110 mg/dL 70-100 [facility] Comment on above: ADA recommended refe rence range Random Glucose Reference Range is dependent on time and content of last meal. Glucose of more than 200 mg/dL in a nonstressed, ambulatory subject supports the diagnosis of Diabetes Mellitus. Serum or plasma high density lipoprotein (HDL) cholesterol measurementOrdered By: Sascha Sutton on 04-14-2022 Cholesterol in HDL [Mass/Vol] 41 mg/dL 29-71 [facility] Comment on above: HDL CHOL ATP-III CLA SSIFICATION Cardiovascular Risk HDL > or equal to 60 mg/dL LOW HDL < 40 mg/dL HIGH Serum or plasma potassium me asurement (moles/volume)Ordered By: Romel Davis on 04-14-2022 Potassium [Moles/Vol] 3.9 mmol/L 3.5-5.1 [facility] Serum or plasma sodium measu rement (moles/volume)Ordered By: Romel Davis on 04-14-2022 Sodium [Moles/Vol] 136 mmol/L 136-146 [facility] Serum or plasma total biliru bin measurement (mass/volume)Ordered By: Romel Davis on 04-14-2022 Bilirubin [Mass/Vol] 0.9 mg/dL 0.3-1.2 [facility] Serum or plasma total carbon dioxide measurement (moles/volume)Ordered By: Romel Davis on 04-14-2022 CO2 [Moles/Vol] 21.2 mmol/L 22.0-30.0 [facility] Serum or plasma total choles terol/high density lipoprotein (HDL) cholesterol mass ratOrdered By: Sascha Sutton on 04-14-2022 Cholesterol.total/Chol esterol in HDL [Mass ratio] 3.0 {ratio} [facility] Serum or plasma urea nitroge n measurement (mass/volume)Ordered By: Romel Davis on 04-14-2022 Urea nitrogen [Mass/Vol] 16 mg/dL 9-23 [facility] Specific gravity Auto test s trip (U) [Rel density]Ordered By: Romel Davis on 04-14-2022 Specific gravity (U) [Rel density] 1.025 1.001-1.03 0 [facility] Squamous epithelial cells de tection in urine sediment by light microscopyOrdered By: Romel Davis on 04-14-2022 Epithelial cells.squamous LM Ql (Urine sed) 0-1 [HPF] [facility] Triglyceride [Mass/volume] i n Serum or PlasmaOrdered By: Sascha Sutton on 04-14-2022 Triglyceride [Mass/Vol] 75 mg/dL 35-149 [facility] Comment on above: TRIG ATP [...] Auto Ql (U) None seen None Seen [facility] Urine clarity by refractomet ry automatedOrdered By: Romel Davis on 04-14-2022 Clarity Refractometry automated (U) Turbid Clear [facility] Urine glucose measurement by automated test strip (mass/volume)Ordered By: Romel Davis on 04-14-2022 Glucose Auto test strip (U) [Mass/Vol] Normal mg/dL Normal [facility] Urine hemoglobin detection b y automated test stripOrdered By: Romel Davis on 04-14-2022 Hemoglobin Auto test strip Ql (U) Negative Negative [facility] Urine leukocyte esterase det ection by automated test stripOrdered By: Romel Davis on 04-14-2022 Leukocyte esterase Auto test strip Ql (U) Negative Negative [facility] Urobilinogen Auto test strip (U) [Mass/Vol]Ordered By: Romelsera Davis on 04-14-2022 Urobilinogen (U) [Mass/Vol] Normal mg/dL Normal [facility] pH Auto test strip (U)Ordere d By: Romel Mendezrow on 04-14-2022 pH (U) 5.5 [pH] 5.0-9.0 [facility] CT CSPINE WO CONon 2 [...] by: PRIMO GALE Date: 2022-04-09 17:03 Normal [facility] CT HEAD WO CONon 04-09-2022 CT [...] by: PRIMO GALE Date: 2022-04-09 17:00 Normal [facility] CT TSPINE WO CONon 2 CT TSPINE [...] by: PRIMO GALE Date: 2022-04-09 17:10 Normal [facility] CT ABDOMEN AND PELVIS W/O CO NTRASTon 04-25-2018 CT ABDOMEN AND PELVIS W/O CONTRAST Performed at [facility] APPROVED BY: JOSE CRUZ HOLLEY MD [...] the detailed report for complete information. Normal [facility] Comprehensive Panelon 2017 Albumin 4.3 g/dL Normal 3.4-5.0 [facility] Comment on above: Performed By: #### S P14 ####[facility] [place], [place] [address] Alkaline phosphatase (ALP) 87 U/L Normal 46-116 [facility] Comment on above: Performed By: #### S P14 ####[address] [address] ALT-SGPT Blood 38 U/L Normal 12-78 [facility] Comment on above: Performed By: #### S P14 ####[address] [address] Anion gap 13 mmol/L Normal 8-16 [facility] Comment on above: Performed By: #### S P14 ####[address] [address] AST-SGOT Blood 22 U/L Normal 15-46 [facility] Comment on above: Performed By: #### S P14 ####[address] [address] Bilirubin Ql (U) 0.9 mg/dL Normal 0.2-1.0 [facility] Comment on above: Performed By: #### S P14 ####[address] [address] BUN (urea nitrogen) 20 mg/dL High 7-18 [facility] Comment on above: Performed By: #### S P14 ####[address] [address] Calcium 9.0 mg/dL Normal 8.5-10.1 [facility] Comment on above: Performed By: #### S P14 ####[address] [address] Chloride 104 mmol/L Normal 98-107 [facility] Comment on above: Performed By: #### S P14 ####[address] [address] CO2 24 mmol/L Normal 21-32 [facility] Comment on above: Performed By: #### S P14 ####[place] [address] Creatinine 0.93 mg/dL Normal 0.67-1.17 [facility] Comment on above: Performed By: #### S P14 ####[facility] [place] [address] Glucose mass conc 142 mg/dL High 70-99 [facility] Comment on above: Performed By: #### S P14 ####[facility] [place] [address] Potassium molar conc 3.8 mmol/L Normal 3.5-5.1 [facility] Comment on above: Performed By: #### S P14 ####[facility] [place] [address] Protein 7.4 g/dL Normal 6.4-8.2 [facility] Comment on above: Performed By: #### S P14 ####[facility] [place] [address] Sodium 137 mmol/L Normal 136-145 [facility] Comment on above: Performed By: #### S P14 ####[place] [address] ED NOTEon 04-25-2018 ED NOTE HNO ID: [id number] Author: Minerva GarciaRn) KATHE Zepeda Service: Emergency Medicine Author Type: Registered Nurse Type: ED Notes Filed: 04/25/2018 5:51 AM Note Text: Voided 150 cc light yellow urine which was strained: no stone noted [facility] ED NOTE HNO ID: [id number] Author: Minerva Zepeda RN Service: Emergency Medicine Author Type: Registered Nurse Type: ED Notes Filed: 04/25/2018 3:34 AM Note Text: Patient returned to the Emergency Department. [facility] ED NOTE HNO ID: [id number] Author: Valentine GarciaRn) KATHE Stratton Service: Emergency Medicine Author Type: Registered Nurse Type: ED Notes Filed: 04/25/2018 3:30 AM Note Text: Patient transported to ct/cart Normal [facility] ED NOTE HNO ID: [id number] Author: Valentine Stratton RN Service: Emergency Medicine Author Type: Registered Nurse Type: ED Notes Filed: 04/25/2018 3:21 AM Note Text: Warm b lanket given, labs drawn with IV start AND sent, medicated for paIN PER ORDER Normal [facility] ED NOTE HNO ID: [id number] thor: Minerva (Rn) DIEGO Zepedaervice: Emergency MedicineAuthor Type: Registered NurseType: ED NotesFiled: 04/25/2018 2:55 AMNote Text:c/o pain left lower abdomen that began around 12:30 AM-- pain woke pt upand is assoc with nausea. Vomited small amt food particles upon arrival toed Rm Normal [facility] ED PROV NOTEon 04-25-2018 ED PROV NOTE HNO ID: [id number] thor: STEPHANIE Gillervice: Emergency MedicineAuthor Type: PhysicianType: ED Provider NotesFiled: 04/25/2018 6:48 AMNote Text:ED Provider NotePatient Name: Valentin TorreMRN: [id number] DATE: 04/25/18HistoryPatient presents with:Abdominal PainPatient is a [...] 10.24 (*) 1.35 - 7.21 thou/cmm Abs. [place] 0.84 (*) 0.19 - 0.80 thou/cmm All [...] up withurology as an outpatient. [place] and he will follow-upwith the urologist there. He was discharged home in improved condition.He is happy with his care and comfortable with the plan.ED Course / Clinical ImpressionClinical Impressions as of Apr 25 0647Ureteral calculus, leftHydronephrosis with urinary obstruction due to renal calculusPlanSIGNATURE: Jose De Jessu Gill MD04/25/18 0648 Normal [facility] Hemogram/Diffon 04-25-2018 Abs. Baso 0.02 thou/cmm Normal 0.00-0.08 [facility] Comment on above: Performed By: #### S CBCD ####[place] [address] Abs. [place] 0.84 thou/cmm High 0.19-0.80 [facility] Comment on above: Performed By: #### S CBCD ####[address] [address] Abs. Neut (ANC) 10.24 thou/cmm High 1.35-7.21 [facility] Comment on above: Performed By: #### S CBCD ####[address] [address] Basophils/100 WBC Auto (Bld) 0.2 % Normal [facility] Comment on above: Performed By: #### S CBCD ####[address] [address] Eosinophils 0.04 thou/cmm Normal 0.00-0.36 [facility] Comment on above: Performed By: #### S CBCD ####[place] [address] Eosinophils/100 leukocytes 0.3 % Normal [facility] Comment on above: Performed By: #### S CBCD ####[place] [address] Erythrocyte distribution width Auto Ratio (RBC) 13.7 % Normal 11.8-14.5 [facility] Comment on above: Performed By: #### S CBCD ####[address] [address] Erythrocytes (RBC) 5.26 mil/cmm Normal 4.22-5.80 [facility] Comment on above: Performed By: #### S CBCD ####[place] [address] Hematocrit (HCT) 47.0 % Normal 39.6-50.7 [facility] Comment on above: Performed By: #### S CBCD ####[address] [address] Hemoglobin mass conc (Bld) 16.2 g/dL Normal 13.2-17.4 [facility] Comment on above: Performed By: #### S CBCD ####[place] [address] Lymphocytes 0.83 thou/cmm Normal 0.68-2.93 [facility] Comment on above: Performed By: #### S CBCD ####[facility] [place], [place] [address] Lymphocytes/100 leukocytes 6.9 % Normal [facility] Comment on above: Performed By: #### S CBCD ####[facility] [place], [place] [address] MCH 30.8 pg Normal 27.4-32.8 [facility] Comment on above: Performed By: #### S CBCD ####[place] [address] MCHC mass conc (RBC) 34.5 % Normal 31.9-35.6 [facility] Comment on above: Performed By: #### S CBCD ####[place] [address] MCV 89.4 fL Normal 81.8-95.6 [facility] Comment on above: Performed By: #### S CBCD ####[address] [address] Monocytes/100 leukocytes 7.0 % Normal [facility] Comment on above: Performed By: #### S CBCD ####[place] [address] Platelet mean volume (PMV) 10.1 fL Normal 8.8-12.1 [facility] Comment on above: Performed By: #### S CBCD ####[place] [address] Platelets 169 thou/cmm Normal 150-370 [facility] Comment on above: Performed By: #### S CBCD ####[address] [address] Seg Neutrophil 85.6 % Normal [facility] Comment on above: Performed By: #### S CBCD ####[address] [address] WBC (Leukocytes) 12.0 thou/cmm High 4.4-9.7 [facility] Comment on above: Performed By: #### S CBCD ####[place] [id number] Lipase Bloodon 04-25-2018 Lipase Blood 155 U/L Normal 73-393 [facility] Comment on above: Performed By: #### S LIP ####[place] [address] MDRD eGFRon 04-25-2018 eGFR (non-black) mL/min/{1.73_m2} Normal >60mL/m in/ 1.73m2 [facility] Comment on above: Result Comment: If t he patient is , multiply the result by 1.210. Performed By: #### S GFR ####[place] [address] Urinalysis Routineon 018 Bilirubin Urine Negative Normal Negative [facility] Comment on above: Performed By: #### S URIN ####[place] [address] Ep Cells Urine NONE Normal 0-5 [facility] Comment on above: Performed By: #### S URIN ####[place] [address] Hemoglobin,Urine TRACE-INTACT Abnormal Negative [facility] Comment on above: Performed By: #### S URIN ####[place] [address] Ketone Urine 15 mg/dL Abnormal Negative [facility] Comment on above: Performed By: #### S URIN ####[place] [address] Nitrites Urine Negative Normal Negative [facility] Comment on above: Performed By: #### S URIN ####[address] [address] Protein Urine Negative Normal Negative [facility] Comment on above: Performed By: #### S URIN ####[place] [address] Specific [place], Ur 1.020 Normal 1.005-1 .03 0 [facility] Comment on above: Performed By: #### S URIN ####[place] [address] Urine, appearance CLEAR Normal [facility] Comment on above: Performed By: #### S URIN ####[facility] [place], [place] [address] Urine, bacteria in sediment NONE Normal None [facility] Comment on above: Performed By: #### S URIN ####[facility] [place], [place] [address] Urine, color YELLOW Normal [facility] Comment on above: Performed By: #### S URIN ####[facility] [place], [place] [address] Urine, erythrocytes in sediment by area 7-12 Normal 0-3 [facility] Comment on above: Performed By: #### S URIN ####[address] [address] Urine, glucose presence Negative Normal Negative [facility] Comment on above: Performed By: #### S URIN ####[address] [address] Urine, leukocytes in sedmiment 0-2 Normal 0-5 [facility] [facility] Comment on above: Performed By: #### S URIN ####[address] [address] Urine, pH 7.0 [pH] Normal 5.0-8.0 [facility] Comment on above: Performed By: #### S URIN ####[place] [address] Urobilinogen,Ur 0.2 EU/dL Normal 0.0-1.0 [facility] Comment on above: Performed By: #### S URIN ####[place] [address] WBC (Leukocytes) Negative Normal Negative [facility] Comment on above: Performed By: #### S URIN ####[place] [address] Vital Signs Date Time Vital Sign Value Performing Clinician Facility 06-11-2025 13:57-0400 Body height 170.2 cm Myra Orlando APRN-BILL PEDDLER Work Phone: [facility] 06-11-2025 13:57-0400 Body mass index (BMI) [Ratio] 34.61 kg/m2 Myragalina Diezotzer WOOD TANK ERECTOR-BILL P[employer]DLER [facility] 06-11-2025 13:57-0400 Body temperature 98.8 [degF] Myra Krotzer WOOD TANK ERECTOR-BILL PEDDLER [facility] 06-11-2025 13:57-0400 Body weight 100.25 kg Myragalina Diezotzer WOOD TANK ERECTOR-BILL PEDDLER [facility] 06-11-2025 13:57-0400 Diastolic blood pressure 68 mm[Hg] Myra Krotzer WOOD TANK ERECTOR-BILL PEDDLER [facility] 06-11-2025 13:57-0400 Heart rate 73 /min Myra Krotzer WOOD TANK ERECTOR-BILL PEDDLER [facility] 06-11-2025 13:57-0400 Respiratory rate 20 /min Myra Krotzer WOOD TANK ERECTOR-BILL PEDDLER [facility] 06-11-2025 13:57-0400 SaO2% (BldA) [Mass fraction] 96 % Myra Rgotzer WOOD TANK ERECTOR-BILL PEDDLER [facility] 06-11-2025 13:57-0400 Systolic blood pressure 110 mm[Hg] Myra Rgotzer WOOD TANK ERECTOR-BILL PEDDLER [facility] 05-28-2025 14:42-0400 Body height 170.2 cm Sascha Furlong DO [facility] 05-28-2025 14:42-0400 Body mass index (BMI) [Ratio] 35.01 kg/m2 Sascha Furlong DO [facility] 05-28-2025 14:42-0400 Body temperature 97.5 [degF] Sascha Furlong DO Work Phone: [facility] 05-28-2025 14:42-0400 Body weight 101.42 kg Sascha Furlong DO Work Phone: [facility] 05-28-2025 14:42-0400 Diastolic blood pressure 60 mm[Hg] Sascha Furlong DO Work Phone: [facility] 05-28-2025 14:42-0400 Heart rate 72 /min Sascha Furlong DO Work Phone: [facility] 05-28-2025 14:42-0400 Respiratory rate 20 /min Sascha Furlong DO Work Phone: [facility] 05-28-2025 14:42-0400 SaO2% (BldA) [Mass fraction] 96 % Sascha Furlong DO Work Phone: [facility] 05-28-2025 14:42-0400 Systolic blood pressure 118 mm[Hg] Sascha Furlong DO Work Phone: [facility] 05-15-2025 10:25-0400 Body height 170.2 cm Shabnam Connell [employer] LEAD BURNER Work Phone: [facility] 05-15-2025 10:25-0400 Body mass index (BMI) [Ratio] 34.24 kg/m2 Shabnam Connell [employer] LE[employer] BURNER Work Phone: [facility] 05-15-2025 10:25-0400 Body weight 99.16 kg Shabnam Harrisongel [employer] LEAD BURNER Work Phone: [facility] 05-15-2025 10:25-0400 Diastolic blood pressure 82 mm[Hg] Shabnam Harrisongel [employer] LEAD BURNER Work Phone: [facility] 05-15-2025 10:25-0400 Systolic blood pressure 128 mm[Hg] Shabnam Christygel [employer] LEAD BURNER Work Phone: [facility] 05-07-2025 09:30-0400 Body height 170.2 cm Sascha Furlong DO Work Phone: [facility] 05-07-2025 09:30-0400 Body mass index (BMI) [Ratio] 34.46 kg/m2 Sascha Furlong DO Work Phone: [facility] 05-07-2025 09:30-0400 Body weight 99.79 kg Sascha Furlong DO Work Phone: [facility] 05-07-2025 09:30-0400 Diastolic blood pressure 70 mm[Hg] Sascha Furlong DO Work Phone: [facility] 05-07-2025 09:30-0400 Systolic blood pressure 126 mm[Hg] Sascha Furlong DO Work Phone: [facility] 04-16-2025 16:35-0400 Body height 170.2 cm Sascha Furlong DO Work Phone: [facility] 04-16-2025 16:35-0400 Body mass index (BMI) [Ratio] 33.16 kg/m2 Sascha Furlong DO Work Phone: [facility] 04-16-2025 16:35-0400 Body temperature 97.39 [degF] Sascha Furlong DO Work Phone: [facility] 04-16-2025 16:35-0400 Body weight 96.07 kg Sascha Furlong DO Work Phone: [facility] 04-16-2025 16:35-0400 Diastolic blood pressure 70 mm[Hg] Sascha Furlong DO Work Phone: [facility] 04-16-2025 16:35-0400 Heart rate 86 /min Sascha Furlong DO Work Phone: [facility] 04-16-2025 16:35-0400 Respiratory rate 20 /min Sascha Furlong DO Work Phone: [facility] 04-16-2025 16:35-0400 SaO2% (BldA) [Mass fraction] 98 % Sascha Furlong DO Work Phone: [facility] 04-16-2025 16:35-0400 Systolic blood pressure 126 mm[Hg] Sascha Furlong DO Work Phone: [facility] 04-09-2025 16:02-0400 Body height 172.7 cm Kali Conklin DPM Work Phone: [facility] 04-09-2025 16:02-0400 Body mass index (BMI) [Ratio] 32.54 kg/m2 Kali Conklin DPM Work Phone: [facility] 04-09-2025 16:02-0400 Body weight 97.07 kg Kali Conklin DPM Work Phone: [facility] 04-09-2025 16:02-0400 Respiratory rate 16 /min Kali Conklin DPM Work Phone: [facility] 03-20-2025 10:32-0400 Body height 172.7 cm Whit Taylor MD Work Phone: [facility] 03-20-2025 10:32-0400 Body mass index (BMI) [Ratio] 32.54 kg/m2 Whit Taylor MD Work Phone: [facility] 03-20-2025 10:32-0400 Body weight 97.07 kg Whit Taylor MD Work Phone: [facility] 03-20-2025 10:32-0400 Diastolic blood pressure 64 mm[Hg] Whit Taylor MD Work Phone: [facility] 03-20-2025 10:32-0400 Systolic blood pressure 122 mm[Hg] Whit Taylor MD Work Phone: [facility] 02-25-2025 13:41-0400 Body height 170.2 cm Sascha Furlong DO Work Phone: [facility] 02-25-2025 13:41-0400 Body mass index (BMI) [Ratio] 33.35 kg/m2 Sascha Furlong DO Work Phone: [facility] 02-25-2025 13:41-0400 Body temperature 97.5 [degF] Sascha Furlong DO Work Phone: [facility] 02-25-2025 13:41-0400 Body weight 96.62 kg Sascha Furlong DO Work Phone: [facility] 02-25-2025 13:41-0400 Diastolic blood pressure 60 mm[Hg] Sascha Furlong DO Work Phone: [facility] 02-25-2025 13:41-0400 Heart rate 89 /min Sascha Furlong DO Work Phone: [facility] 02-25-2025 13:41-0400 Respiratory rate 20 /min Sascha Furlong DO Work Phone: [facility] 02-25-2025 13:41-0400 SaO2% (BldA) [Mass fraction] 96 % Sascha Furlong DO Work Phone: [facility] 02-25-2025 13:41-0400 Systolic blood pressure 118 mm[Hg] Sascha Furlong DO Work Phone: [facility] 02-21-2025 09:17-0400 Body height 172.7 cm Kali Conklin DPM Work Phone: [facility] 02-21-2025 09:17-0400 Body mass index (BMI) [Ratio] 32.84 kg/m2 Kali Conklin DPM Work Phone: [facility] 02-21-2025 09:17-0400 Body weight 97.98 kg Kali Conklin DPM Work Phone: [facility] 02-21-2025 09:17-0400 Respiratory rate 16 /min Kali Conklin DPM Work Phone: [facility] 02-16-2025 07:42-0400 Body temperature 97.8 [degF] Sascha Furlong DO Work Phone: [facility] 02-16-2025 07:42-0400 Diastolic blood pressure 81 mm[Hg] Sascha Furlong DO Work Phone: [facility] 02-16-2025 07:42-0400 Heart rate 74 /min Sascha Furlong DO Work Phone: [facility] 02-16-2025 07:42-0400 Respiratory rate 16 /min Sascha Furlong DO Work Phone: [facility] 02-16-2025 07:42-0400 SaO2% (BldA) [Mass fraction] 97 % Sascha Furlong DO Work Phone: [facility] 02-16-2025 07:42-0400 Systolic blood pressure 145 mm[Hg] Sascha Furlong DO Work Phone: [facility] 02-16-2025 05:51-0400 Body weight 100.9 kg Sascha Furlong DO Work Phone: [facility] 02-15-2025 14:59-0400 Body height 172.72 cm Sascha Furlong DO Work Phone: [facility] 02-15-2025 14:59-0400 Body temperature 98 [degF] Sascha Furlong DO Work Phone: [facility] 02-15-2025 14:59-0400 Body weight 98 kg Sascha Furlong DO Work Phone: [facility] 02-15-2025 14:59-0400 Diastolic blood pressure 88 mm[Hg] Sascha Furlong DO Work Phone: [facility] 02-15-2025 14:59-0400 Heart rate 70 /min Sascha Furlong DO Work Phone: [facility] 02-15-2025 14:59-0400 Respiratory rate 18 /min Sascha Furlong DO Work Phone: [facility] 02-15-2025 14:59-0400 SaO2% (BldA) [Mass fraction] 97 % Sascha Furlong DO Work Phone: [facility] 02-15-2025 14:59-0400 Systolic blood pressure 145 mm[Hg] Sascha Furlong DO Work Phone: [facility] 02-07-2025 10:07-0400 Body height 172.7 cm Kali Conklin DPM Work Phone: [facility] 02-07-2025 10:07-0400 Body mass index (BMI) [Ratio] 32.84 kg/m2 Kali Conklin DPM Work Phone: [facility] 02-07-2025 10:07-0400 Body weight 97.98 kg Kali Conklin DPM Work Phone: [facility] 02-07-2025 10:07-0400 Diastolic blood pressure 78 mm[Hg] Kali Conklin DPM Work Phone: [facility] 02-07-2025 10:07-0400 Heart rate 78 /min Kali Conklin DPM Work Phone: [facility] 02-07-2025 10:07-0400 Systolic blood pressure 126 mm[Hg] Kali Conklin DPM Work Phone: [facility] 01-30-2025 16:47-0400 Body height 172.7 cm Kali Conklin DPM Work Phone: [facility] 01-30-2025 16:47-0400 Body mass index (BMI) [Ratio] 32.84 kg/m2 Kali Brown DPM Work Phone: [facility] 01-30-2025 16:47-0400 Body weight 97.98 kg Kali Conklin DPM Work Phone: [facility] 01-30-2025 16:47-0400 Respiratory rate 18 /min Kali Conklin DPM Work Phone: [facility] 01-29-2025 14:02-0400 SaO2% (BldA) [Mass fraction] 96 % Sascha Furlong DO Work Phone: [facility] [employer] [facility] 01-29-2025 13:57-0400 Body height 170.2 cm Sascha Furlong DO Work Phone: [facility] [employer] 01-29-2025 13:57-0400 Body mass index (BMI) [Ratio] 33.66 kg/m2 Sascha Furlong DO Work Phone: [facility] [employer] [facility] 01-29-2025 13:57-0400 Body temperature 97.39 [degF] Sascha Furlong DO Work Phone: [facility] 01-29-2025 13:57-0400 Body weight 97.52 kg Sascha Furlong DO Work Phone: [facility] [employer] 01-29-2025 13:57-0400 Respiratory rate 20 /min Sascha Furlong DO Work Phone: [facility] [employer] [facility] 01-25-2025 11:32-0500 Body height 170.2 cm Sascha Furlong DO Work Phone: [facility] [employer] [facility] 01-25-2025 11:32-0500 Body mass index (BMI) [Ratio] 34.51 kg/m2 Sascha Furlong DO Work Phone: [facility] [employer] 01-25-2025 11:32-0500 Body temperature 98.1 [degF] Sascha Furlong DO Work Phone: [facility] [employer] [facility] 01-25-2025 11:32-0500 Body weight 99.97 kg Sascha Furlong DO Work Phone: [facility] 01-25-2025 11:32-0500 Diastolic blood pressure 60 mm[Hg] Sascha Furlong DO Work Phone: [facility] 01-25-2025 11:32-0500 Heart rate 82 /min Sascha Furlong DO Work Phone: [facility] 01-25-2025 11:32-0500 Respiratory rate 20 /min Sascha Furlong DO Work Phone: [facility] 01-25-2025 11:32-0500 SaO2% (BldA) [Mass fraction] 98 % Sascha Furlong DO Work Phone: [facility] 01-25-2025 11:32-0500 Systolic blood pressure 140 mm[Hg] Sascha Furlong DO Work Phone: [facility] 01-24-2025 11:01-0500 Body height 172.7 cm Kali Conklin DPM Work Phone: [facility] 01-24-2025 11:01-0500 Body mass index (BMI) [Ratio] 32.84 kg/m2 Kali Conklin DPM Work Phone: [facility] 01-24-2025 11:01-0500 Body weight 97.98 kg Kali oCnklin DPM Work Phone: [facility] 01-24-2025 11:01-0500 Respiratory rate 18 /min Kali Conklin DPM Work Phone: [facility] 01-12-2025 15:54-0500 Diastolic blood pressure 79 mm[Hg] Sascha Furlong DO Work Phone: [facility] 01-12-2025 15:54-0500 Heart rate 72 /min Sascha Furlong DO Work Phone: [facility] 01-12-2025 15:54-0500 Respiratory rate 20 /min Sascha Furlong DO Work Phone: [facility] 01-12-2025 15:54-0500 SaO2% (BldA) [Mass fraction] 97 % Sascha Furlong DO Work Phone: [facility] 01-12-2025 15:54-0500 Systolic blood pressure 133 mm[Hg] Sascha Furlong DO Work Phone: [facility] 01-12-2025 12:50-0500 Body height 172.72 cm Sascha Furlong DO Work Phone: [facility] 01-12-2025 12:50-0500 Body temperature 97.6 [degF] Sascha Furlong DO Work Phone: [facility] 01-12-2025 12:50-0500 Body weight 95.25 kg Sascha Furlong DO Work Phone: [facility] 01-12-2025 11:46-0500 Body temperature 97.9 [degF] Sascha Furlong DO Work Phone: [facility] 01-12-2025 11:46-0500 Body weight 98.42 kg Sascha Furlong DO Work Phone: [facility] 01-12-2025 11:46-0500 Diastolic blood pressure 77 mm[Hg] Sascha Furlong DO Work Phone: [facility] 01-12-2025 11:46-0500 Heart rate 80 /min Sascha Furlong DO Work Phone: [facility] 01-12-2025 11:46-0500 SaO2% (BldA) [Mass fraction] 97 % Sascha Furlong DO Work Phone: [facility] 01-12-2025 11:46-0500 Systolic blood pressure 132 mm[Hg] Sascha Furlong DO Work Phone: [facility] 01-10-2025 13:21-0500 Body height 172.7 cm Kali Conklin DPM Work Phone: [facility] 01-10-2025 13:21-0500 Body mass index (BMI) [Ratio] 32.84 kg/m2 Kali Conklin DPM Work Phone: [facility] 01-10-2025 13:21-0500 Body weight 97.98 kg Kali Conklin DPM Work Phone: [facility] 01-10-2025 13:21-0500 Respiratory rate 18 /min Kali Conklin DPM Work Phone: [facility] 12-19-2024 11:39-0500 Body height 172.7 cm Whit Taylor MD Work Phone: [facility] 12-19-2024 11:39-0500 Body mass index (BMI) [Ratio] 32.84 kg/m2 Whit Taylor MD Work Phone: [facility] 12-19-2024 11:39-0500 Body weight 97.98 kg Whit Taylor MD Work Phone: [facility] 12-17-2024 14:20-0500 Body height 172.7 cm Carlos Eden DO Work Phone: [facility] 12-17-2024 14:20-0500 Body mass index (BMI) [Ratio] 32.99 kg/m2 Carlos Spandrea DO Work Phone: [facility] 12-17-2024 14:20-0500 Body weight 98.43 kg Carlos Spandrea Work Phone: [facility] 12-17-2024 10:11-0500 Body height 170.2 cm Sascha Furlong DO Work Phone: [facility] 12-17-2024 10:11-0500 Body mass index (BMI) [Ratio] 33.48 kg/m2 Sascha Furlong DO Work Phone: [facility] 12-17-2024 10:11-0500 Body temperature 97.59 [degF] Sascha Furlong DO Work Phone: [facility] [employer] 12-17-2024 10:11-0500 Body weight 96.98 kg Ssacha Furlong DO Work Phone: [facility] [employer] 12-17-2024 10:11-0500 Diastolic blood pressure 68 mm[Hg] Sascha Furlong DO Work Phone: [facility] [employer] [facility] 12-17-2024 10:11-0500 Heart rate 86 /min Sascha Furlong DO Work Phone: [facility] [employer] [facility] 12-17-2024 10:11-0500 Respiratory rate 20 /min Sascha Furlong DO Work Phone: [facility] [employer] [facility] 12-17-2024 10:11-0500 SaO2% (BldA) [Mass fraction] 96 % Sascha Furlong DO Work Phone: [facility] [employer] [facility] 12-17-2024 10:11-0500 Systolic blood pressure 120 mm[Hg] Sascha Furlong DO Work Phone: [facility] [employer] [facility] 12-06-2024 09:58-0500 Body height 172.7 cm Kali Conklin DPM Work Phone: [facility] 12-06-2024 09:58-0500 Body mass index (BMI) [Ratio] 32.99 kg/m2 Kali Conklin DPM Work Phone: [facility] 12-06-2024 09:58-0500 Body weight 98.43 kg Kali Conklin DPM Work Phone: [facility] 12-06-2024 09:58-0500 Respiratory rate 16 /min Kali Conklin DPM Work Phone: [facility] 11-01-2024 12:55-0500 Body mass index (BMI) [Ratio] 32.99 kg/m2 Kali Conklin DPM Work Phone: [facility] 11-01-2024 12:55-0500 Body weight 98.43 kg Kalielliott Conklin DPM Work Phone: [facility] 10-15-2024 09:44-0500 Body height 172.7 cm Whit Taylor MD Work Phone: [facility] 10-15-2024 09:44-0500 Body mass index (BMI) [Ratio] 33.12 kg/m2 Whit Taylor MD Work Phone: [facility] 10-15-2024 09:44-0500 Body weight 98.79 kg Whit Taylor MD Work Phone: [facility] 10-09-2024 14:06-0500 Body height 170.2 cm Sascha Furlong DO Work Phone: [facility] 10-09-2024 14:06-0500 Body mass index (BMI) [Ratio] 34.43 kg/m2 Sascha Furlong DO Work Phone: [facility] 10-09-2024 14:06-0500 Body temperature 97.39 [degF] Sascha Furlong DO Work Phone: [facility] 10-09-2024 14:06-0500 Body weight 99.7 kg Sascha Furlong DO Work Phone: [facility] 10-09-2024 14:06-0500 Diastolic blood pressure 60 mm[Hg] Sascha Furlong DO Work Phone: [facility] 10-09-2024 14:06-0500 Heart rate 90 /min Sascha Furlong DO Work Phone: [facility] 10-09-2024 14:06-0500 Respiratory rate 22 /min Sascha Furlong DO Work Phone: [facility] 10-09-2024 14:06-0500 SaO2% (BldA) [Mass fraction] 97 % Sascha Furlong DO Work Phone: [facility] [employer] [facility] 10-09-2024 14:06-0500 Systolic blood pressure 110 mm[Hg] Sascha Furlong DO Work Phone: [facility] [employer] [facility] 09-24-2024 13:38-0500 Body mass index (BMI) [Ratio] 34.05 kg/m2 Sascha Furlong DO Work Phone: [facility] [employer] [facility] 09-24-2024 13:38-0500 Body temperature 98.1 [degF] Sascha Furlong DO Work Phone: [facility] [employer] [facility] 09-24-2024 13:38-0500 Body weight 98.61 kg Sascha Furlong DO Work Phone: [facility] [employer] [facility] 09-24-2024 13:38-0500 Diastolic blood pressure 60 mm[Hg] Sascha Furlong DO Work Phone: [facility] [employer] [facility] 09-24-2024 13:38-0500 Heart rate 80 /min Sascha Furlong DO Work Phone: [facility] [employer] [facility] 09-24-2024 13:38-0500 SaO2% (BldA) [Mass fraction] 95 % Sascha Furlong DO Work Phone: [facility] [employer] [facility] 09-24-2024 13:38-0500 Systolic blood pressure 108 mm[Hg] Sascha Furlong DO Work Phone: [facility] 09-19-2024 09:08-0400 Body height 172.72 cm MD Edenilson Mcleod Work Phone: [facility] 09-19-2024 09:08-0400 Body mass index (BMI) [Ratio] 32.2 kg/m2 MD Edenilson Mcleod Work Phone: [facility] 09-19-2024 09:08-0400 Body temperature 97.7 [degF] MD Edenilson Mcleod Work Phone: [facility] 09-19-2024 09:08-0400 Body weight 96.16 kg MD Edenilson Mcleod Work Phone: [facility] 09-19-2024 09:08-0400 Diastolic blood pressure 76 mm[Hg] MD Edenilson Mcleod Work Phone: [facility] 09-19-2024 09:08-0400 Heart rate 85 /min MD Edenilson Mcleod Work Phone: [facility] 09-19-2024 09:08-0400 Respiratory rate 18 /min MD Edenilson Mcleod Work Phone: [facility] 09-19-2024 09:08-0400 SaO2% (BldA) [Mass fraction] 94 % MD Edenilson Mcleod Work Phone: [facility] 09-19-2024 09:08-0400 Systolic blood pressure 124 mm[Hg] MD Edenilson Mcleod Work Phone: [facility] 09-03-2024 10:01-0400 Blood Pressure Location Zacgreyson MUNIZ [facility] 09-03-2024 10:01-0400 Body temperature 98.6 [degF] Zac MUNIZ [facility] 09-03-2024 10:01-0400 Diastolic blood pressure 77 mm[Hg] Zac MUNIZ [facility] 09-03-2024 10:01-0400 Heart rate 71 /min Zac MUNIZ [facility] 09-03-2024 10:01-0400 Respiratory rate 16 /min Zca MUNIZ [facility] 09-03-2024 10:01-0400 Systolic blood pressure 129 mm[Hg] Zac MUNIZ [facility] 08-29-2024 10:46-0400 Body height 172.72 cm MD Edenilson Mcleod Work Phone: [facility] 08-29-2024 10:46-0400 Body mass index (BMI) [Ratio] 32.2 kg/m2 MD Edenilson Mcleod Work Phone: [facility] 08-29-2024 10:46-0400 Body weight 96.16 kg MD Edenilson Mcleod Work Phone: [facility] 08-17-2024 14:21-0400 Body height 172.7 cm Kali Conklin DPM Work Phone: [facility] 08-17-2024 14:21-0400 Body mass index (BMI) [Ratio] 32.39 kg/m2 Kali Conklin DPM Work Phone: [facility] 08-17-2024 14:21-0400 Body weight 96.62 kg Kali Conklin DPM Work Phone: [facility] 08-17-2024 14:21-0400 Diastolic blood pressure 82 mm[Hg] Kali Conklin DPM Work Phone: [facility] 08-17-2024 14:21-0400 Heart rate 74 /min Kali Conklin DPM Work Phone: [facility] 08-17-2024 14:21-0400 Respiratory rate 18 /min Kali Conklin DPM Work Phone: [facility] 08-17-2024 14:21-0400 Systolic blood pressure 124 mm[Hg] Kali Conklin DPM Work Phone: [facility] 06-14-2024 14:16-0400 Body height 170.2 cm Sascha Furlong DO Work Phone: [facility] 06-14-2024 14:16-0400 Body mass index (BMI) [Ratio] 33.3 kg/m2 Sascha Furlong DO Work Phone: [facility] 06-14-2024 14:16-0400 Body temperature 97.9 [degF] Sascha Furlong DO Work Phone: [facility] 06-14-2024 14:16-0400 Body weight 96.44 kg Sascha Furlong DO Work Phone: [facility] 06-14-2024 14:16-0400 Diastolic blood pressure 60 mm[Hg] Sascha Furlong DO Work Phone: [facility] 06-14-2024 14:16-0400 Heart rate 70 /min Sascha Furlong DO Work Phone: [facility] 06-14-2024 14:16-0400 Respiratory rate 18 /min Sascha Furlong DO Work Phone: [facility] 06-14-2024 14:16-0400 SaO2% (BldA) [Mass fraction] 99 % Sacsha Furlong DO Work Phone: [facility] 06-14-2024 14:16-0400 Systolic blood pressure 100 mm[Hg] Sascha Furlong DO Work Phone: [facility] 05-28-2024 08:56-0400 Body height 172.72 cm DO Sascha Furlong Work Phone: [facility] 05-28-2024 08:56-0400 Body mass index (BMI) [Ratio] 31.8 kg/m2 DO Sascha Furlong Work Phone: [facility] 05-28-2024 08:56-0400 Body weight 95 kg DO Sascha Furlong Work Phone: [facility] 05-15-2024 14:48-0400 Blood Pressure Location LEAH BILL [facility] 05-15-2024 14:48-0400 Diastolic blood pressure 78 mm[Hg] LEAH KHAN [facility] 05-15-2024 14:48-0400 Heart rate 80 /min LEAH KHAN [facility] 05-15-2024 14:48-0400 Respiratory rate 16 /min LEAH HKAN [facility] 05-15-2024 14:48-0400 Systolic blood pressure 132 mm[Hg] LEAH BILL [facility] 05-01-2024 10:16-0400 Body height 172.7 cm Sascha Furlong DO Work Phone: [facility] 05-01-2024 10:16-0400 Body mass index (BMI) [Ratio] 32.34 kg/m2 Sascha Furlong DO Work Phone: [facility] 05-01-2024 10:16-0400 Body weight 96.44 kg Sascha Furlong DO Work Phone: [facility] 05-01-2024 10:16-0400 Diastolic blood pressure 68 mm[Hg] Sascha Furlong DO Work Phone: [facility] 05-01-2024 10:16-0400 Systolic blood pressure 122 mm[Hg] Sascha Furlong DO Work Phone: [facility] 04-24-2024 10:48-0400 Body height 172.72 cm DO Sascha Furlong Work Phone: [facility] 04-24-2024 10:48-0400 Body mass index (BMI) [Ratio] 32.1 kg/m2 DO Sascha Furlong Work Phone: [facility] 04-24-2024 10:48-0400 Body weight 95.76 kg DO Sascha Furlong Work Phone: [facility] 04-09-2024 12:35-0400 Diastolic blood pressure 68 mm[Hg] DO Sascha [employer] Work Phone: [facility] 04-09-2024 12:35-0400 Heart rate 63 /min DO Sascha [employer] Work Phone: [facility] 04-09-2024 12:35-0400 Respiratory rate 16 /min DO Sascha [employer] Work Phone: [facility] 04-09-2024 12:35-0400 SaO2% (BldA) [Mass fraction] 98 % DO Sascha [employer] [employer] Work Phone: [facility] 04-09-2024 12:35-0400 Systolic blood pressure 107 mm[Hg] DO Sascha [employer] [employer] Work Phone: [facility] 04-09-2024 12:05-0400 Inhaled oxygen flow rate 4 L/min DO Sascha [employer] [employer] Work Phone: [facility] 04-09-2024 10:16-0400 Body height 172.72 cm DO [place] Work Phone: [facility] 04-09-2024 10:16-0400 Body mass index (BMI) [Ratio] 32.1 kg/m2 DO [place] Work Phone: [facility] 04-09-2024 10:16-0400 Body weight 96 kg DO Sascha [employer] [employer] Work Phone: [facility] 04-09-2024 09:12-0400 Body temperature 97.8 [degF] DO Sascha [employer] [employer] Work Phone: [facility] 03-29-2024 11:07-0400 Body height 172.72 cm DO Sascha [employer] [employer] Work Phone: [facility] 03-29-2024 11:07-0400 Body mass index (BMI) [Ratio] 32.2 kg/m2 DO Sascha Furlong Work Phone: [facility] 03-29-2024 11:07-0400 Body weight 96.16 kg DO Sascha Furlong Work Phone: [facility] 03-20-2024 12:09-0400 Blood Pressure Location Daria Orzech [facility] 03-20-2024 12:09-0400 Body temperature 97.52 [degF] Daria Orzech [facility] 03-20-2024 12:09-0400 Diastolic blood pressure 74 mm[Hg] Daria Orzech [facility] 03-20-2024 12:09-0400 Heart rate 73 /min Daria Orzech [facility] 03-20-2024 12:09-0400 Respiratory rate 19 /min Daria Orzech [facility] 03-20-2024 12:09-0400 Systolic blood pressure 124 mm[Hg] Daria Orzech [facility] 02-21-2024 10:29-0400 Body height 172.72 cm DO Sascha Furlong Work Phone: [facility] 02-21-2024 10:29-0400 Body mass index (BMI) [Ratio] 32.6 kg/m2 DO Sascha Furlong Work Phone: [facility] 02-21-2024 10:29-0400 Body weight 97.52 kg DO Sascha Furlong Work Phone: [facility] 02-09-2024 13:46-0400 Body height 172.72 cm DO Sascha Furlong Work Phone: [facility] 02-09-2024 13:46-0400 Body mass index (BMI) [Ratio] 32.3 kg/m2 DO Sascha Furlong Work Phone: [facility] 02-09-2024 13:46-0400 Body weight 96.61 kg DO Sascha Furlong Work Phone: [facility] 01-02-2024 23:55-0500 Body height 172.72 cm DO Sascha Furlong Work Phone: [facility] 01-02-2024 23:55-0500 Body temperature 97.4 [degF] DO Sascha Furlong Work Phone: [facility] 01-02-2024 23:55-0500 Body weight 100.3 kg DO Sascha Furlong Work Phone: [facility] 01-02-2024 23:55-0500 Diastolic blood pressure 100 mm[Hg] DO Sascha Furlong Work Phone: [facility] 01-02-2024 23:55-0500 Heart rate 74 /min DO Sascha Furlong Work Phone: [facility] 01-02-2024 23:55-0500 Respiratory rate 20 /min DO Sascha Furlong Work Phone: [facility] 01-02-2024 23:55-0500 SaO2% (BldA) [Mass fraction] 96 % DO Sascha Furlong Work Phone: [facility] 01-02-2024 23:55-0500 Systolic blood pressure 155 mm[Hg] DO Sascha Furlong Work Phone: [facility] 12-30-2023 09:40-0500 Body height 172.72 cm Мария Hernandez Other [employer] Other 12-30-2023 09:40-0500 Body mass index (BMI) [Ratio] 32.99 kg/m2 Мария Hernandez Other [employer] Other 12-30-2023 09:40-0500 Body weight 98.43 kg Мария Hernandez Other [employer] Other 12-14-2023 09:34-0500 Body height 172.7 cm Sascha Furlong DO Work Phone: [employer] 12-14-2023 09:34-0500 Body mass index (BMI) [Ratio] 33.49 kg/m2 Sascha Furlong DO Work Phone: [employer] 12-14-2023 09:34-0500 Body temperature 97.59 [degF] Sascha Furlong DO Work Phone: [employer] 12-14-2023 09:34-0500 Body weight 99.88 kg Sascha Furlong DO Work Phone: [employer] 12-14-2023 09:34-0500 Diastolic blood pressure 68 mm[Hg] Sascha Furlong DO Work Phone: [employer] 12-14-2023 09:34-0500 Heart rate 75 /min Sascha Furlong DO Work Phone: [employer] 12-14-2023 09:34-0500 Respiratory rate 20 /min Sascha Furlong DO Work Phone: [employer] 12-14-2023 09:34-0500 SaO2% (BldA) [Mass fraction] 96 % Sascha Furlong DO Work Phone: [employer] 12-14-2023 09:34-0500 Systolic blood pressure 122 mm[Hg] Sascha Furlong DO Work Phone: [employer] 09-19-2023 09:39-0400 Blood Pressure Location Zac MUNIZ [facility] 09-19-2023 09:39-0400 Diastolic blood pressure 77 mm[Hg] Zac MUNIZ [facility] 09-19-2023 09:39-0400 Heart rate 64 /min Zacgreyson MUNIZ [facility] 09-19-2023 09:39-0400 Respiratory rate 16 /min Zac MUNIZ [facility] 09-19-2023 09:39-0400 Systolic blood pressure 126 mm[Hg] Zac MUNIZ [facility] 05-18-2023 09:00-0400 Body weight 20 mg DO Sascha Furlong Work Phone: [facility] 05-09-2023 10:34-0400 Body height 172.72 cm Sascha G Furlong Work Phone: [facility] 250 DO Work Phone: 05-09-2023 10:34-0400 Body mass index (BMI) [Ratio] 32.54 kg/m2 Sascha G Furlong Work Phone: [facility] [facility] DO Work Phone: 05-09-2023 10:34-0400 Body surface area Derived from formula 2.1 m2 Sascha G Furlong Work Phone: [facility] [facility] DO Work Phone: 05-09-2023 10:34-0400 Body weight 97.07 kg Sascha G Furlong Work Phone: [facility] [facility] DO Work Phone: 05-09-2023 10:34-0400 Diastolic blood pressure 60 mm[Hg] Sascha G Furlong Work Phone: [facility] [facility] DO Work Phone: 05-09-2023 10:34-0400 Heart rate 78 /min Sascha G Furlong Work Phone: [facility] DO Work Phone: 05-09-2023 10:34-0400 Systolic blood pressure 88 mm[Hg] Sascha G Furlong Work Phone: [facility] [facility] DO Work Phone: 05-07-2023 19:59-0400 Diastolic blood pressure 67 mm[Hg] DO Sascha Furlong Work Phone: [facility] 05-07-2023 19:59-0400 Heart rate 68 /min DO Sascha Furlong Work Phone: [facility] 05-07-2023 19:59-0400 Respiratory rate 18 /min DO Sascha Furlong Work Phone: [facility] 05-07-2023 19:59-0400 SaO2% (BldA) [Mass fraction] 96 % DO Sascha Furlong Work Phone: [facility] 05-07-2023 19:59-0400 Systolic blood pressure 122 mm[Hg] DO Sascha Furlong Work Phone: [facility] 05-07-2023 18:27-0400 Body height 172.72 cm DO Sascha Furlong Work Phone: [facility] 05-07-2023 18:27-0400 Body temperature 99 [degF] DO Sascha Furlong Work Phone: [facility] 05-07-2023 18:27-0400 Body weight 94.95 kg DO Sascha Furlong Work Phone: [facility] 05-03-2023 05:30-0400 Diastolic blood pressure 60 mm[Hg] DO Sascha Furlong Work Phone: [facility] 05-03-2023 05:30-0400 Heart rate 74 /min DO Sascha Furlong Work Phone: [facility] 05-03-2023 05:30-0400 Respiratory rate 18 /min DO Sascha Furlong Work Phone: [facility] 05-03-2023 05:30-0400 SaO2% (BldA) [Mass fraction] 96 % DO Sascha Furlong Work Phone: [facility] 05-03-2023 05:30-0400 Systolic blood pressure 101 mm[Hg] DO Sascha Furlong Work Phone: [facility] 05-03-2023 02:29-0400 Body height 172.72 cm DO Sascha Furlong Work Phone: [facility] 05-03-2023 02:29-0400 Body temperature 97.9 [degF] DO Sascha Furlong Work Phone: [facility] 05-03-2023 02:29-0400 Body weight 97.52 kg DO Sascha Furlong Work Phone: [facility] 04-04-2023 15:54-0400 Diastolic blood pressure 55 mm[Hg] DO Sascha Furlong Work Phone: [facility] 04-04-2023 15:54-0400 Heart rate 54 /min DO Sascha Furlong Work Phone: [facility] 04-04-2023 15:54-0400 Respiratory rate 16 /min DO Sascha Furlong Work Phone: [facility] 04-04-2023 15:54-0400 SaO2% (BldA) [Mass fraction] 95 % DO Sascha Furlong Work Phone: [facility] 04-04-2023 15:54-0400 Systolic blood pressure 98 mm[Hg] DO Sascha Furlong Work Phone: [facility] 04-04-2023 09:55-0400 Body height 172.72 cm DO Sascha Furlong Work Phone: [facility] 04-04-2023 09:55-0400 Body temperature 97.5 [degF] DO Sascha Furlong Work Phone: [facility] 04-04-2023 09:55-0400 Body weight 98.7 kg DO Sascha Furlong Work Phone: [facility] 03-30-2023 11:00-0400 Body height 172.72 cm Sascha G Furlong Work Phone: [facility] [employer] [facility] DO Work Phone: 03-30-2023 11:00-0400 Body mass index (BMI) [Ratio] 32.99 kg/m2 Sascha G Furlong Work Phone: [facility] [employer] [facility] DO Work Phone: 03-30-2023 11:00-0400 Body surface area Derived from formula 2.12 m2 Sascha G Furlong Work Phone: [facility] [employer] 250 DO Work Phone: 03-30-2023 11:00-0400 Body weight 98.43 kg Sascha G Furlong Work Phone: [facility] [employer] 250 DO Work Phone: 03-30-2023 11:00-0400 Diastolic blood pressure 70 mm[Hg] Sascha G Furlong Work Phone: [facility] [employer] 250 DO Work Phone: 03-30-2023 11:00-0400 Diastolic blood pressure 82 mm[Hg] Sascha Candelaria Furlong Work Phone: [facility] [facility] DO Work Phone: 03-30-2023 11:00-0400 Heart rate 63 /min Sascha Candelaria Furlong Work Phone: [facility] [facility] DO Work Phone: 03-30-2023 11:00-0400 Systolic blood pressure 126 mm[Hg] Sascha Candelaria Furlong Work Phone: [facility] [facility] DO Work Phone: 03-30-2023 11:00-0400 Systolic blood pressure 134 mm[Hg] Sascha Marielong Work Phone: [facility] DO Work Phone: 03-24-2023 11:00-0400 54 1 Sascha Marielong Work Phone: [facility] DO Work Phone: Comment on above: [id number] Encounters Encounter Date Encounter Type Care Provider Facility Start: 07-19-2025 ambulatory Zac Sinhai ty:[facility] [place] Start: 07-01-2025 ambulatory Zac Sinhai ty:[facility] [place] Start: 06-27-2025 ambulatory Zac MUNIZ Facili ty:[id number] Start: 06-12-2025 End: 06-12-2025 ambulatory Zac MUNIZ Facility:[facility] Start: 06-12-2025 End: 06-12-2025 Patient encounter procedure Zac MUNIZ [facility] Start: 06-11-2025 End: 06-11-2025 Office outpatient visit 25 minutes Myra Orlando [employer] Work Phone: [facility] Comment on above: Hospital discharge f ollow-up (Primary Dx); Syncope, unspecified syncope type Start: 06-11-2025 End: 06-11-2025 ambulatory MYRA ORLANDO [facility] Start: 06-01-2025 End: 06-03-2025 Refill Kali Conklin DPM Work Phone: [facility] Comment on above: Tenosynovitis of rig ht lower leg Start: 05-28-2025 End: 05-28-2025 Office outpatient visit 15 minutes Sascha Sutton DO Work Phone: [facility] Comment on above: Moderate persistent asthma, unspecified whether complicated (Primary Dx); Class 2 severe obesity due to excess calories with serious comorbidity and body mass index (BMI) of 35.0 to 35.9 in adult ([facility]) Start: 05-28-2025 End: 05-28-2025 ambulatory FORKS Teagan [facility] Start: 05-27-2025 End: 05-27-2025 Refill Sascha Sutton DO Work Phone: [facility] Start: 05-15-2025 End: 05-15-2025 Bamboo flowsheet Shabnam Dnanie Isaacnagel [employer] Work Phone: [facility] Start: 05-15-2025 End: 05-15-2025 Bamboo flowsheet Shabnam C Windnagel [employer] Work Phone: [facility] Start: 05-15-2025 End: 05-15-2025 Office outpatient visit 25 minutes Shabnam C Cristinanagel [employer] Work Phone: [facility] Comment on above: Intention tremor (Pr imary Dx); Polyneuropathy Start: 05-15-2025 End: 05-15-2025 ambulatory SHABNAM Dannie ISAACNAGEL Not Available Start: 05-07-2025 End: 05-07-2025 Patient encounter procedure Sascha Sutton DO Work Phone: [facility] Comment on above: Medicare annual well ness visit, subsequent (Primary Dx); Screening for depression Start: 05-07-2025 End: 05-07-2025 ambulatory SASCHA MARIEOSMANI [facility] Start: 05-01-2025 Non-patient / Non-visit Saschajennifer Marielong DO Work Phone: [facility] In[facility] Work Phone: Start: 05-01-2025 End: 05-01-2025 Patient encounter procedure Saschajennifer Marielong DO Work Phone: [facility]Res[facility] Work Phone: Start: 05-01-2025 End: 05-01-2025 ambulatory Sascha Furlong DO Work Phone: [facility] Work Phone: Start: 04-29-2025 End: 04-29-2025 ambulatory Zac MUNIZ Facility:[facility] Start: 04-29-2025 End: 04-29-2025 Patient encounter procedure Zac MUNIZ [facility] Start: 04-18-2025 End: 04-18-2025 Patient encounter procedure Saschajennifer Lazcanong DO Work Phone: [facility] [address] Work Phone: Start: 04-18-2025 End: 04-18-2025 ambulatory Saschajennifer Marielong DO Work Phone: [facility] Work Phone: Start: 04-18-2025 Registered Recurring Sascha mcarthur DO Work Phone: [facility]-Physical Therapy [place] Start: 04-16-2025 End: 04-16-2025 Office outpatient visit 15 minutes Sascha Teagan Sutton DO Work Phone: [facility] Comment on above: Lumbar radiculopathy (Primary Dx); Pain of right lower leg Start: 04-16-2025 End: 04-16-2025 ambulatory SASCHA Candelaria [facility] Start: 04-10-2025 End: 04-17-2025 Telephone encounter Carmen Neff CMA [facility] Start: 04-10-2025 End: 04-10-2025 Patient encounter procedure Sascha Sutton DO Work Phone: [facility]-Count Includes [facility] Orthopedics Work Phone: Start: 04-10-2025 End: 04-10-2025 ambulatory Sascha Lazcanoosmani DO Work Phone: [facility] Work Phone: Start: 04-09-2025 End: 04-09-2025 Office outpatient visit 15 minutes Kali Conklin DPM Work Phone: [facility] Comment on above: Tenosynovitis of rig ht lower leg (Primary Dx); Su splint, right, initial encounter; 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; Contracture of right ankle; Xerosis cutis; Pain due to onychomycosis of toenails of both feet Start: 04-09-2025 End: 04-09-2025 ambulatory KALI CONKLIN Not Available Start: 04-09-2025 End: 04-09-2025 Bamboo flowsheet Kali Conklin DPM Work Phone: [facility] Start: 04-09-2025 End: 04-09-2025 Bamboo flowsheet Kali Conklin DPM Work Phone: [facility] Start: 04-09-2025 Registered Recurring Sascha Beebe josealberto DO Work Phone: [facility]-Physical Therapy [place] Start: 03-27-2025 End: 03-27-2025 ambulatory Sascha Mariecristoferng DO Work Phone: [facility] Work Phone: Start: 03-27-2025 End: 03-27-2025 Patient encounter procedure Sascha Sutton DO Work Phone: [facility] Physician [facility] Work Phone: Start: 03-26-2025 Registered Recurring Sascha mcarthur DO Work Phone: [facility]-Physical Therapy [place] Start: 03-20-2025 End: 03-20-2025 Bamboo flowsheet Whit Taylor MD Work Phone: [facility] Start: 03-20-2025 End: 03-20-2025 Bamboo flowsheet Whit Taylor MD Work Phone: [facility] Start: 03-20-2025 End: 03-20-2025 ambulatory WHIT TAYLOR Not Available Start: 03-20-2025 End: 03-20-2025 Office outpatient visit 25 minutes Whit Taylor MD Work Phone: [facility] Comment on above: Piriformis syndrome of right side (Primary Dx); Intention tremor Start: 03-13-2025 Non-patient / Non-visit Sascha Sutton DO Work Phone: [facility] Physician [facility] Work Phone: Start: 03-04-2025 End: 03-04-2025 Telephone encounter Marian Guajardo NP Work Phone: [facility] Start: 02-25-2025 End: 02-25-2025 Transitional care manage srvc 14 day discharge Sascha Sutton DO Work Phone: [facility] Comment on above: Other chest pain (Pr imary Dx); Thoracic region somatic dysfunction; Essential hypertension Start: 02-25-2025 End: 02-25-2025 [facility] Start: 02-24-2025 End: 02-24-2025 Refill Sascha G Furlong DO Work Phone: [facility] Start: 02-21-2025 End: 02-21-2025 Bamboo flowsheet Kali Conklin DPM Work Phone: [facility] Start: 02-21-2025 End: 02-21-2025 Bamboo flowsheet Kali Conklin DPM Work Phone: [facility] Start: 02-21-2025 End: 02-21-2025 Office outpatient visit 15 minutes Kali Conklin DPM Work Phone: [facility] Comment on above: Tenosynovitis of rig ht lower leg (Primary Dx); Su splint, right, initial encounter; 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; Contracture of right ankle; Xerosis cutis Start: 02-21-2025 End: 02-21-2025 ambulatory KALI CONKLIN Not Available Start: 02-21-2025 End: 02-21-2025 ambulatory Sascha Furlong DO Work Phone: [facility] Work Phone: Start: 02-21-2025 End: 02-21-2025 Patient encounter procedure Sascha Furlong DO Work Phone: [facility] Work Phone: Start: 02-15-2025 End: 02-16-2025 ambulatory Mohamad Yohan Facility:[facility] Start: 02-15-2025 End: 02-16-2025 Evaluation and management of inpatient Sascha Furlong DO Work Phone: [facility] [place] [facility] Work Phone: Start: 02-15-2025 End: 02-16-2025 observation encounter Sascha Furlong DO Work Phone: [facility] Work Phone: Start: 02-08-2025 End: 02-08-2025 ambulatory Sascha Furlong DO Work Phone: [facility] Work Phone: Start: 02-08-2025 End: 02-08-2025 Patient encounter procedure Sascha Lazcanong DO Work Phone: [facility]-Count In[facility] Orthoped[facility] Work Phone: Start: 02-07-2025 End: 02-07-2025 Bamboo flowsheet Kali Conklin DPM Work Phone: [facility] Start: 02-07-2025 End: 02-07-2025 Bamboo flowsheet Kali Conklin DPM Work Phone: [facility] Start: 02-07-2025 End: 02-07-2025 Office outpatient visit 15 minutes Kali Conklin DPM Work Phone: [facility] Comment on above: Xerosis cutis (Prima ry Dx); Tenosynovitis of right lower leg; Su splint, right, initial encounter; Contracture of right ankle Start: 02-07-2025 End: 02-07-2025 ambulatory KALI CONKLIN Not Available Start: 01-30-2025 End: 01-30-2025 Office outpatient visit 15 minutes Kali Conklin DPM Work Phone: [facility] Comment on above: Tenosynovitis of rig ht lower leg (Primary Dx); 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; Xerosis cutis; Su splint, right, initial encounter; Contracture of right ankle Start: 01-30-2025 End: 01-30-2025 ambulatory KALI CONKLIN Not Available Start: 01-30-2025 End: 01-30-2025 Bamboo flowsheet Kali Conklin DPM Work Phone: [facility] Start: 01-30-2025 End: 01-30-2025 Bamboo flowsheet Kali Conklin DPM Work Phone: [facility] Start: 01-29-2025 End: 01-29-2025 Office outpatient visit 25 minutes Sascha Sutton DO [facility]: [facility] Comment on above: Right leg weakness ( Primary Dx); Fall, initial encounter; Lumbosacral stenosis with neurogenic claudication; Perforation of right tympanic membrane Start: 01-29-2025 End: 01-29-2025 ambulatory [facility] Start: 01-25-2025 End: 01-25-2025 Patient encounter procedure Sascha Sutton DO Work Phone: [facility] [place] Work Phone: Start: 01-25-2025 End: 01-25-2025 ambulatory Sascha Sutton DO Work Phone: [facility] Work Phone: Start: 01-25-2025 End: 01-25-2025 Office outpatient visit 15 minutes Sascha Sutton DO Work Phone: [facility] Internal Medicine - Family Medicine Comment on above: Abrasion of anterior right lower leg, subsequent encounter (Primary Dx); Cellulitis of right lower extremity; Contusion of right lower leg, subsequent encounter Start: 01-25-2025 End: 01-25-2025 ambulatory [facility] Start: 01-24-2025 End: 01-24-2025 Bamboo flowsheet Kali Conklin DPM Work Phone: [facility] Start: 01-24-2025 End: 01-24-2025 Bamboo flowsheet Kali Conklin DPM Work Phone: [facility] Start: 01-24-2025 End: 01-24-2025 Office outpatient visit 15 minutes Kali Conklin DPM Work Phone: [facility] Comment on above: 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); Pronation deformity of both feet; Skin fissure Start: 01-24-2025 End: 01-24-2025 ambulatory KALI CONKLIN Not Available Start: 01-24-2025 End: 01-24-2025 ambulatory Sascha Furlong DO Work Phone: [facility] Work Phone: Start: 01-24-2025 End: 01-24-2025 Discharged Recurring Sascha Furlong DO Work Phone: [facility]-Physical Therapy [place] Start: 01-24-2025 Registered Recurring Sascha Fu rlong DO Work Phone: [facility]-Physical Therapy [place] Start: 01-14-2025 End: 01-14-2025 Patient encounter procedure Sascha Furlong DO Work Phone: [facility]-Lab [address] Work Phone: Start: 01-14-2025 End: 01-14-2025 ambulatory Sascha Furlong DO Work Phone: [facility] Work Phone: Start: 01-12-2025 End: 01-12-2025 Emergency department patient visit Sascha Furlong DO Work Phone: [facility]-Emergency Room Work Phone: Start: 01-12-2025 End: 01-12-2025 ambulatory Sascha Furlong DO Work Phone: [facility] Work Phone: Start: 01-12-2025 End: 01-12-2025 Patient encounter procedure Sascha Furlong DO Work Phone: [facility] [place] Work Phone: Start: 01-11-2025 Registered Recurring Sascha Fu rlong DO Work Phone: [facility]-Physical Therapy [place] Start: 01-10-2025 End: 01-10-2025 Bamboo flowsheet Kali Conklin DPM Work Phone: [facility] Start: 01-10-2025 End: 01-10-2025 Bamboo flowsheet Kali Conklin DPM Work Phone: [facility] Start: 01-10-2025 End: 01-10-2025 ambulatory KALI Grimaldo KATERIN Not Available Start: 01-10-2025 End: 01-10-2025 Office outpatient visit 15 minutes Kali Conklin DPM Work Phone: [facility] Comment on above: Skin fissure (Primar y Dx); Pain due to onychomycosis of toenails of both feet; 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; Exostosis of both feet Start: 01-03-2025 End: 01-03-2025 Telephone encounter Renée Iqbal EEGRigo TRigo Other Phone: [facility] Start: 12-19-2024 End: 12-19-2024 Bamboo flowsheet Whit Taylor MD Work Phone: [facility] Start: 12-19-2024 End: 12-19-2024 Bamboo flowsheet Whit Taylor MD Work Phone: [facility] Start: 12-19-2024 End: 12-19-2024 Office outpatient visit 25 minutes Whit Taylor MD Work Phone: [facility] Comment on above: Intention tremor (Pr imary Dx); Piriformis syndrome of right side Start: 12-19-2024 End: 12-19-2024 ambulatory WHIT TAYLOR Not Available Start: 12-17-2024 End: 12-17-2024 ambulatory CARLOS EDEN Not Available Start: 12-17-2024 End: 12-17-2024 Bamboo flowsheet Carlos Eden DO Work Phone: [facility] Start: 12-17-2024 End: 12-17-2024 Bamboo flowsheet Carlos Eden DO Work Phone: [facility] Start: 12-17-2024 End: 12-17-2024 Office outpatient visit 25 minutes Carlos Eden DO Work Phone: [facility] Comment on above: Thyroid nodule (CMS/ HCC) (Primary Dx) Essential hypertensi on (Primary Dx); Hyperlipidemia, unspecified hyperlipidemia type; Intention tremor; 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CMS-HCC); Antiphospholipid syndrome (CMS-HCC); Class 1 obesity due to excess calories with serious comorbidity and body mass index (BMI) of 33.0 to 33.9 in adult Start: 12-17-2024 End: 12-17-2024 ambulatory [facility] Start: 12-07-2024 Registered Recurring Edenilson saenz MD Work Phone: [facility]-Physical Therapy [place] Start: 12-07-2024 End: 12-07-2024 Patient encounter procedure Edenilson Mcleod MD Work Phone: [facility] [place] Work Phone: Start: 12-07-2024 End: 12-07-2024 ambulatory Edenilson Mcleod MD Work Phone: [facility] Work Phone: Start: 12-06-2024 End: 12-06-2024 Bamboo flowsheet Kali Conklin DPM Work Phone: [facility] Start: 12-06-2024 End: 12-06-2024 Bamboo flowsheet Kali Conklin DPM Work Phone: [facility] Start: 12-06-2024 End: 12-06-2024 Office outpatient visit 15 minutes Kali Conklin DPM Work Phone: [facility] Comment on above: 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); Exostosis of both feet; Pain due to onychomycosis of toenails of both feet Start: 12-06-2024 End: 12-06-2024 ambulatory KALI CONKLIN Not Available Start: 11-26-2024 Registered Recurring Edenilson saenz MD Work Phone: [facility]-Physical Therapy [place] Start: 11-26-2024 End: 11-26-2024 Orders Only Sascha Sutton DO Work Phone: [facility] Comment on above: Essential hypertensi on (Primary Dx); Hyperlipidemia, unspecified hyperlipidemia type; Encounter for screening for malignant neoplasm of prostate Start: 11-26-2024 End: 11-26-2024 Patient encounter procedure Edenilson Mcleod MD Work Phone: [facility] Physician [facility] [place] Work Phone: Start: 11-09-2024 End: 11-09-2024 Patient encounter procedure Edenilson Mcleod MD Work Phone: [facility] Orthopedics Work Phone: Start: 11-05-2024 End: 11-05-2024 Patient encounter procedure Edenilson Mcleod MD Work Phone: [facility]-MRI [address] Closed Work Phone: Start: 11-05-2024 End: 11-05-2024 ambulatory Ssacha Sutton Facility:[facility] Start: 11-01-2024 End: 11-01-2024 Bamboo flowsheet Kali Conklin DPM Work Phone: [facility] Start: 11-01-2024 End: 11-01-2024 Bamboo flowsheet Kali Conklin DPM Work Phone: [facility] Start: 11-01-2024 End: 11-01-2024 Patient encounter procedure Kali Conklin DPM Work Phone: [facility] Comment on above: Pain due to onychomy cosis of toenails of both feet (Primary Dx); Exostosis of both feet Start: 11-01-2024 End: 11-01-2024 ambulatory KALI CONKLIN Not Available Start: 10-25-2024 End: 10-25-2024 ambulatory Zac MUNIZ Facility::[id number] Start: 10-17-2024 End: 10-17-2024 Patient encounter procedure Edenilson Mcleod MD Work Phone: [facility] Physician [facility]-Count Includes [facility] Orthopedics Work Phone: Start: 10-15-2024 End: 10-15-2024 Bamboo flowsheet Whit Taylor MD Work Phone: [facility] Start: 10-15-2024 End: 10-15-2024 Bamboo flowsheet Whit Taylor MD Work Phone: [facility] Start: 10-15-2024 End: 10-15-2024 Office outpatient visit 25 minutes Whit Taylor MD Work Phone: [facility] Comment on above: Intention tremor (Pr imary Dx) Start: 10-15-2024 End: 10-15-2024 ambulatory WHIT TAYLOR Not Available Start: 10-10-2024 End: 10-10-2024 Patient encounter procedure Edenilson Mcleod MD Work Phone: [facility] [address] Work Phone: Start: 10-10-2024 End: 10-10-2024 ambulatory Edenilson Mcleod MD Work Phone: [facility] Work Phone: Start: 10-09-2024 End: 10-09-2024 Office outpatient visit 15 minutes Sascha Sutton DO Work Phone: [facility] Internal Medicine - Family Medicine Comment on above: Subacute frontal sin usitis (Primary Dx); Hoarseness Start: 10-09-2024 End: 10-09-2024 ambulatory SASCHA SUTTON [facility] Start: 10-02-2024 End: 10-02-2024 Orders Only Sascha Sutton DO Work Phone: [facility] Start: 09-24-2024 End: 09-24-2024 Office outpatient visit 15 minutes [facility]ifer [facility] Work Phone: [facility] Internal Medicine - Family Medicine Comment on above: Upper respiratory tr act infection, unspecified type (Primary Dx) Start: 09-24-2024 End: 09-24-2024 ambulatory FORKS Teagan [facility] Start: 09-19-2024 End: 09-19-2024 ambulatory MD Edenilson Mcleod Work Phone: [facility] Work Phone: Start: 09-19-2024 End: 09-19-2024 Patient encounter procedure MD Edenilson Mcleod Work Phone: [facility] [place] Work Phone: Start: 09-06-2024 Non-patient / Non-visit MD rAaya Work Phone: [facility] Work Phone: Start: 09-05-2024 Non-patient / Non-visit MD Araya Work Phone: [facility] Work Phone: Start: 09-05-2024 End: 09-05-2024 ambulatory MD Edenilson Mcleod Work Phone: [facility] Work Phone: Start: 09-05-2024 End: 09-05-2024 Patient encounter procedure MD Edenilson Mcleod Work Phone: [facility] Work Phone: Start: 09-03-2024 End: 09-03-2024 ambulatory Zac MUNIZ Facility:[facility] Start: 09-03-2024 End: 09-03-2024 Patient encounter procedure Zac MUNIZ [facility] Start: 08-29-2024 End: 08-29-2024 Refill Sascha Candelaria Herman DO Work Phone: [facility] Start: 08-29-2024 End: 08-29-2024 ambulatory MD Edenilson Mcleod Work Phone: [facility] Work Phone: Start: 08-29-2024 End: 08-29-2024 Patient encounter procedure MD Edenilson Mcleod Work Phone: [facility] [place] [facility] Work Phone: Start: 08-20-2024 End: 08-20-2024 ambulatory MD Edenilson Mcleod Work Phone: [facility] Work Phone: Start: 08-20-2024 End: 08-20-2024 Patient encounter procedure MD Edenilson Mcleod Work Phone: [facility] [place] Work Phone: Start: 08-17-2024 End: 08-17-2024 Office outpatient visit 15 minutes Kali Conklin DPM Work Phone: [facility] Comment on above: Exostosis of both fe et (Primary Dx); Onychomycosis; Toe pain, bilateral Start: 08-17-2024 End: 08-17-2024 ambulatory KALI CONKLIN Not Available Start: 08-17-2024 End: 08-17-2024 Bamboo flowsheet Kali Conklin DPM Work Phone: [facility] Start: 08-17-2024 End: 08-17-2024 Bamboo flowsheet Kali Conklin DPM Work Phone: [facility] Start: 08-13-2024 End: 08-13-2024 ambulatory MD Edenilson Mcleod Work Phone: [facility] Work Phone: Start: 08-13-2024 End: 08-13-2024 Patient encounter procedure MD Edenilson Mcleod Work Phone: [facility] Physician [facility] Work Phone: Start: 08-13-2024 Non-patient / Non-visit MD Araya Work Phone: [facility]ician [facility] Work Phone: Start: 07-25-2024 End: 07-25-2024 ambulatory MD Edenilson Mcleod Work Phone: [facility] Work Phone: Start: 07-25-2024 End: 07-25-2024 Patient encounter procedure MD Edenilson Mcleod Work Phone: [facility] Physician [facility] Work Phone: Start: 07-18-2024 Non-patient / Non-visit MD Araya Work Phone: [facility] Physician [facility] Work Phone: Start: 07-18-2024 End: 07-18-2024 Patient encounter procedure MD Edenilson Mcleod Work Phone: [facility] Work Phone: Start: 07-12-2024 End: 07-12-2024 ambulatory MD Edenilson Mcleod Work Phone: [facility] Work Phone: Start: 07-12-2024 End: 07-12-2024 Patient encounter procedure MD Edenilson Mcleod Work Phone: [facility] Work Phone: Start: 07-04-2024 Non-patient / Non-visit MD Araya Work Phone: [facility] Work Phone: Start: 07-04-2024 End: 07-04-2024 ambulatory DO Sascha Furlong Work Phone: [facility] Work Phone: Start: 07-04-2024 End: 07-04-2024 Patient encounter procedure DO Sascha Furlong Work Phone: [facility] Work Phone: Start: 07-03-2024 End: 07-03-2024 Patient encounter procedure DO Sascha Furlong Work Phone: [facility] [address] Work Phone: Start: 07-03-2024 End: 07-03-2024 ambulatory DO Sascha Furlong Work Phone: [facility] Work Phone: Start: 06-26-2024 End: 06-26-2024 ambulatory DO Sascha Furlong Work Phone: [facility] Work Phone: Start: 06-26-2024 End: 06-26-2024 Patient encounter procedure DO Sascha Furlong Work Phone: [facility] Pain Management [place] Work Phone: Start: 06-15-2024 End: 06-21-2024 Telephone encounter Sascha Sutton DO Work Phone: [facility] Start: 06-14-2024 End: 06-14-2024 Office outpatient visit 15 minutes Sascha Lazcanong DO Work Phone: [facility] Comment on above: Essential hypertensi on (Primary Dx); Class 1 obesity due to excess calories with serious comorbidity and body mass index (BMI) of 33.0 to 33.9 in adult Start: 06-14-2024 End: 06-14-2024 ambulatory SASCHA Teagan MARIECRISTOFEROSMANI [facility] Start: 06-13-2024 End: 06-13-2024 ambulatory CARLOS EDEN Not Available Start: 06-06-2024 End: 06-06-2024 ambulatory DO Sascha Furlong Work Phone: [facility] Work Phone: Start: 06-06-2024 End: 06-06-2024 Patient encounter procedure DO Sascha Furlong Work Phone: [facility] Work Phone: Start: 06-06-2024 Non-patient / Non-visit DO Den nis Furlong Work Phone: [facility] Physician [facility] Work Phone: Start: 06-02-2024 End: 06-02-2024 Refill Sascha Candelaria Furcristoferng DO Work Phone: [facility] Start: 05-30-2024 End: 05-30-2024 ambulatory DO Sascha Furlong Work Phone: [facility] Work Phone: Start: 05-30-2024 End: 05-30-2024 Departed Referred DO Sascha Furlong Work Phone: [facility] [place] Work Phone: Start: 05-28-2024 End: 05-28-2024 ambulatory DO Sascha Furlong Work Phone: [facility] Work Phone: Start: 05-28-2024 End: 05-28-2024 Patient encounter procedure DO Sascha Furlong Work Phone: [facility] Physician [facility] Pain Management [place] Work Phone: Start: 05-16-2024 End: 05-16-2024 ambulatory DO Sascha Furlong Work Phone: [facility] Work Phone: Start: 05-16-2024 End: 05-16-2024 Patient encounter procedure DO Saschajennifer Marielong Work Phone: [facility] Physician [facility] Work Phone: Start: 05-16-2024 Non-patient / Non-visit DO Den jennifer Furlong Work Phone: [facility] Work Phone: Start: 05-15-2024 End: 05-15-2024 Patient encounter procedure LEAH KHAN [facility] Start: 05-02-2024 End: 05-02-2024 ambulatory DO Sascha Furlong Work Phone: [facility] Work Phone: Start: 05-02-2024 End: 05-02-2024 Patient encounter procedure DO Sascha Furlong Work Phone: [facility] Physician [facility] Work Phone: Start: 05-01-2024 End: 05-01-2024 Patient encounter procedure Sascha Sutton DO Work Phone: [facility] Comment on above: Medicare annual well ness visit, subsequent (Primary Dx); Screening for depression Start: 04-24-2024 End: 04-24-2024 ambulatory DO Sascha Furlong Work Phone: [facility] Work Phone: Start: 04-24-2024 End: 04-24-2024 Patient encounter procedure DO Sascha Furlong Work Phone: [facility] Neurosurgery Work Phone: Start: 04-18-2024 Non-patient / Non-visit DO Den jennifer Furlong Work Phone: [facility] Physician [facility] Work Phone: Start: 04-18-2024 End: 04-18-2024 ambulatory DO Sascha Furlong Work Phone: [facility] Work Phone: Start: 04-18-2024 End: 04-18-2024 Patient encounter procedure DO Sascha Furlong Work Phone: [facility] Work Phone: Start: 04-11-2024 End: 04-11-2024 ambulatory DO Sascha Furlong Work Phone: [facility] Work Phone: Start: 04-11-2024 End: 04-11-2024 Patient encounter procedure DO Sascha Furlong Work Phone: [facility] Work Phone: Start: 04-09-2024 Non-patient / Non-visit DO Den nis Furlong Work Phone: [facility] Neurosurgery Work Phone: Start: 04-09-2024 End: 04-09-2024 Admission to same day surgery center DO Sascha Furlong Work Phone: [facility]-Surgery Center [facility] [place] Start: 04-09-2024 End: 04-09-2024 ambulatory DO Sascha Furlong Work Phone: [facility] Work Phone: Start: 04-02-2024 End: 04-02-2024 ambulatory DO Sascha Furlong Work Phone: [facility] Work Phone: Start: 04-02-2024 End: 04-02-2024 Departed Referred DO Sascha Furlong Work Phone: [facility]-Pre-Surgical Testing Work Phone: Start: 04-02-2024 End: 04-02-2024 Patient encounter procedure DO Sascha Furlong Work Phone: [facility]-Pre-Surgical Testing Work Phone: Start: 03-29-2024 End: 03-29-2024 ambulatory DO Sascha Furlong Work Phone: [facility] Work Phone: Start: 03-29-2024 End: 03-29-2024 Patient encounter procedure DO Sascha Furlong Work Phone: [facility] Neurosurgery Work Phone: Start: 03-20-2024 End: 03-20-2024 Patient encounter procedure Daria X Soyzech [facility] Start: 03-13-2024 End: 03-13-2024 ambulatory DO Sascha Furlong Work Phone: [facility] Work Phone: Start: 03-13-2024 End: 03-13-2024 Patient encounter procedure DO Sascha Furlong Work Phone: [facility]-Lab [address] Work Phone: Start: 03-08-2024 End: 03-08-2024 ambulatory DO Sascha Furlong Work Phone: [facility] Work Phone: Start: 03-08-2024 End: 03-08-2024 Patient encounter procedure DO Sascha Furlong Work Phone: [facility]-MRI [address] Work Phone: Start: 03-03-2024 End: 03-03-2024 Refill Sascha G Furlong DO Work Phone: [facility] Start: 02-21-2024 End: 02-21-2024 ambulatory DO Sascha Furlong Work Phone: [facility] Work Phone: Start: 02-21-2024 End: 02-21-2024 Patient encounter procedure DO Sascha Furlong Work Phone: [facility] Neurosurgery Work Phone: Start: 02-09-2024 End: 02-09-2024 ambulatory DO Sascha Furlong Work Phone: [facility] Work Phone: Start: 02-09-2024 End: 02-09-2024 Patient encounter procedure DO Sascha Furlong Work Phone: [facility] Neurosurgery Work Phone: Start: 01-23-2024 End: 02-20-2024 ambulatory SASCHA G FURCRISTOFERNG [facility] Start: 01-18-2024 End: 01-18-2024 Lab Drop off Zac MUNIZ [facility] Start: 01-18-2024 End: 01-18-2024 Patient encounter procedure Zac MUNIZ [facility] [place] Start: 01-11-2024 End: 01-11-2024 ambulatory DO Sascha Furlong Work Phone: [facility] Work Phone: Start: 01-11-2024 End: 01-11-2024 Patient encounter procedure DO Sascha Furlong Work Phone: [facility] Work Phone: Start: 01-10-2024 End: 01-10-2024 ambulatory DO Sascha Furlong Work Phone: [facility] Work Phone: Start: 01-10-2024 End: 01-10-2024 Patient encounter procedure DO Sascha Furlong Work Phone: [facility]-MRI [facility] [place] Work Phone: Start: 01-02-2024 End: 01-03-2024 Emergency department patient visit DO Sascha Furlong Work Phone: [facility]-Emergency Room Work Phone: Start: 12-30-2023 Office outpatient ne w 45 minutes Мария Hernandez [facility] Neurosurgery Start: 12-30-2023 End: 12-30-2023 ambulatory DO Sascha Furlong Work Phone: [facility] Work Phone: Start: 12-30-2023 End: 12-30-2023 Patient encounter procedure DO Sascha Furlong Work Phone: [facility] Work Phone: Start: 12-28-2023 Chart abstracting Bharath pandya DPM Work Phone: [facility] Start: 12-28-2023 End: 12-28-2023 Office outpatient visit 15 minutes Bharath Cain DPM Work Phone: [facility] Comment on above: Pronation deformity of both feet (Primary Dx); Chronic pain of both knees Start: 12-22-2023 End: 01-20-2024 ambulatory [facility] Start: 12-19-2023 End: 12-22-2023 ambulatory [facility] Start: 12-15-2023 End: 12-15-2023 ambulatory DO Sascha Furlong Work Phone: [facility] [facility] Work Phone: Start: 12-15-2023 End: 12-15-2023 Patient encounter procedure DO Sascha Furlong Work Phone: [facility] [place] Work Phone: Start: 12-14-2023 End: 12-15-2023 ambulatory SASCHA SUTTON [facility] Start: 12-14-2023 End: 12-14-2023 Office outpatient visit 25 minutes Sascha Sutton DO Work Phone: [facility] Internal [facility] - Family Medicine Comment on above: Essential hypertensi on (Primary Dx); Hyperlipidemia, unspecified hyperlipidemia type; Midline low back pain without sciatica, unspecified chronicity; Class 1 obesity due to excess calories with serious comorbidity and body mass index (BMI) of 33.0 to 33.9 in adult; 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[facility]); Antiphospholipid syndrome ([facility]); Cubital tunnel syndrome on right; Paresthesias Start: 12-08-2023 End: 12-08-2023 ambulatory DO Saschajennifer Marielong Work Phone: [facility] Work Phone: Start: 12-08-2023 End: 12-08-2023 Patient encounter procedure DO Saschajennifer Marielong Work Phone: [facility] [address] Work Phone: Start: 10-20-2023 End: 10-20-2023 ambulatory DO Sascha Furlong Work Phone: [facility] Work Phone: Start: 10-20-2023 End: 10-20-2023 Patient encounter procedure DO Sascha Furlong Work Phone: [facility] [place] Work Phone: Start: 09-19-2023 End: 09-19-2023 Patient encounter procedure Zac MUNIZ [facility] Start: 09-12-2023 End: 09-12-2023 ambulatory DO Sascha Furlong Work Phone: [facility] Work Phone: Start: 09-12-2023 End: 09-12-2023 Patient encounter procedure DO Sascha Furlong Work Phone: [facility] [place] Work Phone: Start: 09-05-2023 End: 09-05-2023 ambulatory DO Sascha Furlong Work Phone: [facility] Work Phone: Start: 09-05-2023 End: 09-05-2023 Patient encounter procedure DO Sascha Furlong Work Phone: [facility] [address] Work Phone: Start: 08-16-2023 End: 08-16-2023 ambulatory DO Sascha Furlong Work Phone: [facility] Work Phone: Start: 08-16-2023 End: 08-16-2023 Patient encounter procedure DO Sascha Furlong Work Phone: [facility] [place] Work Phone: Start: 08-08-2023 End: 08-08-2023 Patient encounter procedure Zac MUNIZ [facility] Start: 08-04-2023 End: 08-04-2023 ambulatory DO Sascha Furlong Work Phone: [facility] Work Phone: Start: 08-04-2023 End: 08-04-2023 Patient encounter procedure DO Sascha Furlong Work Phone: [facility] [place] Work Phone: Start: 06-03-2023 End: 06-03-2023 Patient encounter procedure Zac MUNIZ [facility] Start: 05-31-2023 End: 05-31-2023 ambulatory DO Sascha Furlong Work Phone: [facility] Work Phone: Start: 05-31-2023 End: 05-31-2023 Patient encounter procedure DO Sascha Furlong Work Phone: [facility] [place] Work Phone: Start: 05-18-2023 End: 05-18-2023 ambulatory DO Sascha Furlong Work Phone: [facility] Work Phone: Start: 05-18-2023 End: 05-18-2023 Patient encounter procedure DO Sascha Furlong Work Phone: [facility] [place] Work Phone: Start: 05-09-2023 Office outpatient vi sit 15 minutes Sascha G Furlong Work Phone: [facility] [address] DO Work Phone: Start: 05-09-2023 End: 05-09-2023 ambulatory DO Sascha Furlong Work Phone: [facility] Work Phone: Start: 05-09-2023 End: 05-09-2023 Patient encounter procedure DO Sascha Furlong Work Phone: [facility] [place] Work Phone: Start: 05-07-2023 End: 05-07-2023 Emergency department patient visit DO Sascha Furlong Work Phone: [facility]-Emergency Room Work Phone: Start: 05-03-2023 End: 05-03-2023 Emergency department patient visit DO Sascha Furlong Work Phone: [facility] Work Phone: Start: 04-13-2023 End: 04-13-2023 Patient encounter procedure DO Sascha Furlong Work Phone: [facility] Work Phone: Start: 04-08-2023 End: 04-08-2023 Patient encounter procedure DO Sascha Furlong Work Phone: [facility] [place] Work Phone: Start: 04-04-[address] Alfonso Trujillo Facility:[id number] Start: 04-04-2023 End: 04-04-2023 Admission to same day surgery center DO Sascha Furlong Work Phone: [facility] Work Phone: Start: 04-04-2023 End: 04-04-2023 ambulatory DO Sascha Furlong Work Phone: [facility] Work Phone: Start: 03-31-2023 End: 03-31-2023 ambulatory DO Sascha Furlong Work Phone: [facility] Work Phone: Start: 03-31-2023 End: 03-31-2023 Patient encounter procedure DO Sascha Furlong Work Phone: [facility]-Pre-Surgical Testing Work Phone: Start: 03-30-2023 Office consultation new/estab patient 80 min Sascha G Furlong Work Phone: -[facility] 250 DO Work Phone: Start: 03-30-[address] Alfonso Trujillo Facility: Start: 03-29-[address] Alfonso Trujillo Fac ility:[facility] Start: 03-20-2023 End: 03-22-2023 ambulatory SHAIKH Claritza MULTANI Facility:H1 Start: 01-31-2023 End: 01-31-2023 ambulatory DO Sascha Furlong Work Phone: [facility] Work Phone: Start: 01-31-2023 End: 01-31-2023 Patient encounter procedure DO Sascha Furlong Work Phone: [facility] [address] Work Phone: Start: 10-26-2022 End: 10-26-2022 ambulatory DO Sascha Furlong Work Phone: [facility] Work Phone: Start: 10-26-2022 End: 10-26-2022 Patient encounter procedure DO Sascha Furlong Work Phone: [facility] [address] Start: 09-29-2022 End: 09-29-2022 ambulatory DO Sascha Furlong Work Phone: [facility] Work Phone: Start: 09-29-2022 End: 09-29-2022 Patient encounter procedure DO Sascha Furlong Work Phone: [facility] Start: 07-21-2022 End: 07-21-2022 Patient encounter procedure DO Sascha Furlong Work Phone: [facility] [address] Start: 04-14-2022 End: 04-14-2022 Patient encounter procedure DO Sascha Furlong Work Phone: [facility] [address] Start: 04-09-2022 End: 04-09-[address] REBECCA GONZALES . Facility:H1 Start: 04-25-2018 End: 04-25-2018 Emergency department patient visit REBEKAH REED [facility] Imaging result normal Sascha G F urlong Work Phone: [facility] DO Work Phone: Procedures Date Procedure Procedure Detail Performing Clinician Start: 06-12-2025 Cystoscopy Zac MUNIZ Start: 06-11-2025 Adult depression screening assessment Myra Orlando [employer] Work Phone: Start: 05-28-2025 Adult depression screening assessment Sascha Furlong DO Work Phone: Start: 05-07-2025 Adult depression screening assessment Sascha Furlong DO Work Phone: Start: 04-16-2025 Adult depression screening assessment Sascha Furlong DO Work Phone: Start: 04-10-2025 X-ray of right knee, four views Saschajennifer berrylong DO Work Phone: Start: 03-13-2025 Back structure, excluding neck (body structure) Zac MUNIZ Comment on above: left lumbar and right lumbar radio frequ ency L3, L4 Start: 02-25-2025 Adult depression screening assessment Sascha Furlong DO Work Phone: Start: 02-15-2025 Plain chest X-ray Sascha Furlong DO Work Phone: Start: 01-25-2025 X-ray of right ankle Sascha Furlong DO Work Phone: Start: 01-25-2025 Follow-up visit Follow-up SASCHA LAZCANONG Start: 01-25-2025 Adult depression screening assessment Sascha Furlong DO Work Phone: Start: 01-12-2025 CT of head without contrast Sascha Furlo ng DO Work Phone: Start: 01-12-2025 CT of lumbar spine without contrast Sascha Furlong DO Work Phone: Start: 01-12-2025 X-ray of right knee, two views Sascha Fu rlong DO Work Phone: Start: 12-17-2024 Adult depression screening assessment Sascha Furlong DO Work Phone: Start: 11-05-2024 MRI of right hip Edenilson Mcleod MD Work Phone: Start: 09-24-2024 Adult depression screening assessment Sascha Furlong DO Work Phone: Start: 09-19-2024 Plain chest X-ray MD Edenilson Mcleod Work Phone: Start: 08-29-2024 Plain X-ray of right hip MD Edenilson de oliveira Work Phone: Start: 06-14-2024 Adult depression screening assessment Sascha Furlong DO Work Phone: Start: 05-01-2024 Adult depression screening assessment Sascha Furlong DO [...] Plain X-ray of right hip DO Sascha Lazcano ng Work Phone: Start: 08-04-2023 Diagnostic radiography of abdomen DO Den jennifer Marielong Work Phone: Start: 05-09-2023 Diagnostic radiography of abdomen DO Den jennifer Marielong Work Phone: Start: 05-03-2023 CT of abdomen and pelvis without contrast DO Saschajennifer Marielong Work Phone: Start: 04-04-2023 [facility] Angio DO Sascha Marielong Work Phone: Start: 09-29-2022 X-ray of left foot DO Sascha Marielong Work Phone: Start: 06-15-2017 Colonoscopy Sascha Sutton DO Work Phone: Start: 11-21-2016 Total colonoscopy Sascha Sutton Work Phone: Arthroplasty of knee Saschajennifer Sutton Work Phone: Arthroplasty of knee Zac MUNIZ Arthroscopy of knee Zac MUNIZ Cleft palate (disorder) Patr ick FLAVIO Colonoscopy Zac MUNIZ Decompression of median nerve Sascha Sutton Work Phone: Decompression of median nerve Zac MUNIZ Dilation of esophagus Sascha Lazcanong Work Phone: Esophagogastroduodenoscopy P atrick MUNIZ Hernia repair Sascha keen Work Phone: Malignant neoplasm o f skin (disorder) Zac MUNIZ Operation on the ear Sascha Lazcanong Work Phone: Operative procedure on knee Sascha Marielong Work Phone: Operative procedure on spinal structure Sascha Sutton Work Phone: Procedure on shoulder Ronni hima MUNIZ Procedure on spine Zac VENTURA Radio-frequency abla tion system (physical object) Zac MUNIZ Repair of cleft palate Garth Sutton Work Phone: Repair of middle ear Sascha Lazcanong Work Phone: Repair of middle ear Zac MUNIZ Repair of shoulder Sascha Lazcanong Work Phone: Surgical procedure on eye proper Sascha Lazcanong Work Phone: Upper limb structure (body structure) LEAH KHAN Plan of Treatment Date Care Activity Detail Author Start: 05-20-2033 DTaP,Tdap and Td Vaccines (3 - Td or Tdap) DTaP,Tdap and Td Vaccines (3 - Td or Tdap) [facility] Start: 06-15-2027 Screening for malign ant neoplasm of colon Colonoscopy [facility] Start: 06-11-2026 Depression Screening Depression Scre ening [facility] Start: 06-11-2026 Fall Risk Screening Fall Risk Screen ing [facility] Start: 06-11-2026 Tobacco Screening Tobacco Screening [facility] Start: 05-28-2026 Adult BMI Follow Up Plan Adult BMI F ollow Up Plan [facility] Start: 05-28-2026 Adult BMI Screening Adult BMI Screen ing [facility] Start: 05-28-2026 Depression Screening Depression Scre ening [facility] Start: 05-28-2026 Fall Risk Screening Fall Risk Screen ing [facility] Start: 05-28-2026 Tobacco Screening Tobacco Screening [facility] Start: 05-13-2026 End: 05-13-2026 Patient encounter procedure 05/13/2026 10:20 AM EDT Office Visit [facility] Internal [facility] - Family Medicine [address] [place] [address] [facility] - [facility] Start: 05-07-2026 Adult BMI Screening Adult BMI Screen ing [facility] Start: 05-07-2026 Depression Screening Depression Scre ening [facility] Start: 05-07-2026 Fall Risk Screening Fall Risk Screen ing [facility] Start: 05-07-2026 Medicare Annual Well ness Visit Medicare Annual Wellness Visit [facility] Start: 04-16-2026 Adult BMI Screening Adult BMI Screen ing [facility] Start: 04-16-2026 Depression Screening Depression Scre ening [facility] Start: 04-16-2026 Fall Risk Screening Fall Risk Screen ing [facility] Start: 04-16-2026 Tobacco Screening Tobacco Screening [facility] Start: 02-25-2026 Adult BMI Screening Adult BMI Screen ing [facility] Start: 02-25-2026 Depression Screening Depression Scre ening [facility] Start: 02-25-2026 Fall Risk Screening Fall Risk Screen ing [facility] Start: 01-29-2026 Adult BMI Screening Adult BMI Screen ing [facility] Start: 01-29-2026 Tobacco Screening Tobacco Screening [facility] Start: 01-25-2026 Adult BMI Screening Adult BMI Screen ing [facility] Start: 01-25-2026 Depression Screening Depression Scre ening [facility] Start: 01-25-2026 Fall Risk Screening Fall Risk Screen ing [facility] Start: 01-25-2026 Tobacco Screening Tobacco Screening [facility] Start: 12-18-2025 End: 12-18-2025 Patient encounter procedure 12/18/2025 1:45 PM EST Office Visit [facility] [place] [address] [place] [phone] Carlos Eden, DO [address] [place] [address] [facility] Start: 10-09-2025 Adult BMI Screening Adult BMI Screen ing [facility] Start: 10-09-2025 Tobacco Screening Tobacco Screening [facility] Start: 09-24-2025 Adult BMI Screening Adult BMI Screen ing [facility] Start: 09-24-2025 Depression Screening Depression Scre ening [facility] Start: 09-24-2025 Tobacco Screening Tobacco Screening [facility] Start: 09-16-2025 End: 09-16-2025 Patient encounter procedure 09/16/2025 9:00 AM EDT Office Visit [facility] [address] [facility] [address] [place] [address] Whit Taylor MD [address] [id number] [facility] Start: 07-22-2025 Influenza vaccination [facility] Start: 06-20-2025 End: 06-20-2025 Patient encounter procedure 06/20/2025 10:00 AM EDT Procedure Visit [facility] [address] [facility] [address] [place] [id number] Kali Conklin, DPM [address] [facility] [address] [place] [address] [facility] Start: 06-14-2025 Adult BMI Screening Adult BMI Screen ing [facility] Start: 06-14-2025 Depression Screening Depression Scre ening [facility] Start: 06-14-2025 Tobacco Screening Tobacco Screening [facility] Start: 05-28-2025 End: 05-28-2025 Patient encounter procedure 05/28/2025 2:45 PM EDT Office Visit [facility] Internal Medicine - Family Medicine [address] [place] [id number] Sascha Sutton DO [address] [place] [address] [facility] - [facility] Start: 05-15-2025 End: 05-15-2025 Patient encounter procedure [facility] Comment on above: Arrived Start: 05-07-2025 End: 05-07-2025 Patient encounter procedure 05/07/2025 9:40 AM EDT [facility] [address] [place] [address] [facility] Start: 05-01-2025 Adult BMI Screening Adult BMI Screen ing [facility] Start: 05-01-2025 Depression Screening Depression Scre ening [facility] Start: 05-01-2025 Fall Risk Screening Fall Risk Screen ing [facility] Start: 05-01-2025 Medicare Annual Well ness Visit Medicare Annual Wellness Visit [facility] Start: 04-18-2025 Hemolytic complement CH50 level [facility] Start: 04-09-2025 End: 04-09-2025 Patient encounter procedure [facility] Comment on above: Tenosynovitis of rig ht lower leg (Primary Dx); Su splint, right, initial encounter; 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; Contracture of right ankle; Xerosis cutis; Pain due to onychomycosis of toenails of both feet Start: 03-21-2025 End: 03-21-2025 Patient encounter procedure 03/21/2025 1:30 PM EDT Procedure Visit [facility] [address] [facility] [address] [place] [phone] Kali Conklin, DPEduard [address] [facility] [address] [place] [address] [facility] Start: 03-20-2025 End: 03-20-2025 Patient encounter procedure 03/20/2025 10:20 AM EDT Office Visit [facility] [address] [facility] [address] [place] [address] Whit Taylor MD [address] [facility] [address] [address] [facility] Start: 02-25-2025 End: 02-25-2025 Patient encounter procedure 02/25/2025 1:30 PM EDT Office Visit [facility] [address] [place] [id number] Sascha Sutton, DO [address] [place] [address] [facility] Start: 02-21-2025 End: 02-21-2025 Patient encounter procedure 02/21/2025 9:30 AM EDT Office Visit [facility] [address] [facility] [address] [place] [phone] Kali Conklin DPM [address] [address] Tenosynovitis of right lower leg (Primary Dx); Su splint, right, initial encounter; 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; Contracture of right ankle; Xerosis cutis [facility] Comment on above: Tenosynovitis of rig ht lower leg (Primary Dx); Su splint, right, initial encounter; 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; Contracture of right ankle; Xerosis cutis Start: 02-16-2025 [facility] Start: 02-16-2025 Referral to patient care nursing assistant [facility] Start: 02-15-2025 Hospital admission [facility] Start: 02-07-2025 End: 02-07-2025 Patient encounter procedure 02/07/2025 10:00 AM EDT Office Visit [facility] [address] [facility] [address] [place] [phone] Kali Conklin DPM [address] [address] Xerosis cutis (Primary Dx); Tenosynovitis of right lower leg; Su splint, right, initial encounter; Contracture of right ankle [facility] Comment on above: Xerosis cutis (Prima ry Dx); Tenosynovitis of right lower leg; Su splint, right, initial encounter; Contracture of right ankle Start: 01-30-2025 End: 01-30-2025 Patient encounter procedure 01/30/2025 4:40 PM EDT Office Visit [facility] [address] [place] [phone] Kali Conklin DPM [address] [address] 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); Xerosis cutis [facility] Comment on above: 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); Xerosis cutis Start: 01-25-2025 End: 01-25-2026 XR Ankle - right 3 Views X-ray ankle right minimum 3 views Imaging Routine Abrasion of anterior right lower leg, subsequent encounter Expected: 01/25/2025, Expires: 01/25/2026 [facility] Work Phone: Comment on above: Expected: 01/25/2025 , Expires: 01/25/2026 Start: 01-24-2025 End: 01-24-2025 Patient encounter procedure 01/24/2025 11:20 AM EST Office Visit [facility] [address] [facility] [address] [place] [address] Kali Conklin DPM [address] [address] Arrived [facility] Comment on above: Arrived Start: 01-14-2025 Hemolytic complement CH50 level [facility] Start: 01-10-2025 End: 01-10-2025 Patient encounter procedure 01/10/2025 1:10 PM EST Procedure Visit [facility] [address] [facility] [address] [place] [address] Kali Conklin DPM [address] [address] [facility] Start: 12-19-2024 End: 12-19-2024 Patient encounter procedure [facility] Comment on above: Arrived Start: 12-17-2024 End: 12-17-2024 Patient encounter procedure [facility] - Family Medicine Comment on above: Arrived Start: 12-14-2024 Adult BMI Screening Adult BMI Screen ing [facility] Start: 12-14-2024 Depression Screening Depression Scre ening [facility] Start: 12-14-2024 Fall Risk Screening Fall Risk Screen ing [facility] Start: 12-14-2024 End: 11-26-2025 Lipid panel Lipid panel Lab Routine Hyperlipidemia, unspecified hyperlipidemia type Expected: 12/14/2024, Expires: 11/26/2025 [facility] Comment on above: Expected: 12/14/2024 , Expires: 11/26/2025 Start: 12-14-2024 Tobacco Screening Tobacco Screening [facility] Start: 12-12-2024 End: 12-12-2024 Patient encounter procedure 12/12/2024 2:15 PM EST Office Visit [facility] [place] [address] [place] [phone] Carlos Eden, [address] [place] [address] [facility] Start: 12-06-2024 End: 12-06-2024 Patient encounter procedure 12/06/2024 10:20 AM EST Office Visit [facility] [address] [facility] [address] [place] [phone] Kali Conklin, JODI [address] [facility] 5 [place] [address] Exostosis of both feet (Primary Dx) [facility] Comment on above: Exostosis of both fe et (Primary Dx) Start: 11-01-2024 End: 11-01-2024 Patient encounter procedure [facility] Comment on above: Pain due to onychomy cosis of toenails of both feet (Primary Dx); Exostosis of both feet Start: 10-15-2024 End: 10-15-2024 Patient encounter procedure [facility] Comment on above: Arrived Start: 10-10-2024 Hemolytic complement CH50 level [facility] Start: 10-08-2024 Influenza vaccination Influenza Vacc ine [facility] Comment on above: Postponed from 07/22 (Patient Ill Today) Start: 08-29-2024 Plain X-ray of right hip XR hi p RT min 2V(w/wo pelvis)* [facility] Start: 08-29-2024 XR Hip - right 2 Views [facility] Start: 08-20-2024 Patient referral [facility] Work Phone: Start: 08-17-2024 End: 08-17-2024 Patient encounter procedure 08/17/2024 2:40 PM EDT Office Visit [facility] [address] [place] [address] Kali Conklin DPM [address] [address] Arrived [facility] Comment on above: Arrived Start: 07-22-2024 [facility] Start: 07-03-2024 Hemolytic complement CH50 level [facility] Start: 06-14-2024 End: 06-14-2024 Patient encounter procedure 06/14/2024 1:30 PM EDT [facility] [address] [place] [address] Sascha Sutton DO [address] [place] [address] [facility] Start: 05-01-2024 End: 05-01-2024 Patient encounter procedure 05/01/2024 10:20 AM EDT Office Visit [facility] [address] [place] [address] [facility] Start: 04-14-2024 Medicare Annual Well ness Visit Medicare Annual Wellness Visit [facility] Start: 04-09-2024 Hospital admission [facility] Start: 04-09-2024 End: 04-09-2024 [facility] Start: 03-13-2024 Hemolytic complement CH50 level [facility] Start: 01-25-2024 End: 01-25-2024 Patient encounter procedure 01/25/2024 11:15 AM EST Office Visit [facility] [address] [place] [address] [place] [phone] Bharath Cain DPM [address] [place] [address] [place] [address] [facility] Start: 01-10-2024 MRI of lumbar spine with contrast MR lumbar spine wo/w con [facility] Start: 01-03-2024 CT Abdomen and Pelvi s WO contrast [facility] Start: 01-03-2024 CT of abdomen and pe lvis without contrast CT abdomen pelvis wo [facility] Start: 12-28-2023 End: 12-28-2023 Patient encounter procedure 12/28/2023 2:00 PM EST Office Visit [facility] [address] [address] [place] [id number] Bharath Cain DPM [address] [place] [address] [place] [address] [facility] Start: 12-14-2023 End: 12-14-2024 XR Lumbar spine 2 or 3 Views X-ray spine lumbar 2 or 3 views Imaging Routine Midline low back pain without sciatica, unspecified chronicity Expected: 12/14/2023, Expires: 12/14/2024 [facility] Work Phone: Comment on above: Expected: 12/14/2023 , Expires: 12/14/2024 Start: 12-08-2023 Hemolytic complement CH50 level [facility] Start: 10-18-2023 COVID-19 Vaccine ( season) COVID-19 Vaccine ( season) [facility] Start: 09-20-2023 COVID-19 Vaccine (3 - Pfizer risk series) COVID-19 Vaccine (3 - Pfizer risk series) [facility] Start: 09-05-2023 Hemolytic complement CH50 level [facility] Start: 08-16-2023 [facility] Start: 05-31-2023 Hemolytic complement CH50 [facility] Start: 05-18-2023 [facility] Start: 05-12-2023 FUV, Provider: Alfonso Trujillo, Status: Pen, Time: 10:00 AM FUV, Provider: Alfonso Trujillo, Status: Pen, Time: 10:00 AM [facility] DO Work Phone: Start: 05-09-2023 FUV, Provider: Germaine Brown, Status: Pen, Time: 10:30 AM FUV, Provider: Germaine Brown, Status: Pen, Time: 10:30 AM [facility] DO Work Phone: Start: 04-04-2023 [facility] Start: 04-04-2023 SURGNONUH, Provider: Alfonso Trujillo, Status: Pen, Time: 11:00 AM [facility], Provider: Alfonso Trujillo, Status: Pen, Time: 11:00 AM [facility] 250 DO Work Phone: Start: 01-31-2023 Hemolytic complement CH50 level [facility] Start: 10-26-2022 Hemolytic complement CH50 level [facility] Start: 2022 Abdominal aortic aneurysm screening Abdominal Aortic Aneurysm (AAA) Screen [facility] Start: 2002 Screening for malign ant neoplasm of colon Colonoscopy [facility] Start: 1975 Adult BMI Follow Up Plan Adult BMI F ollow Up Plan [facility] Start: 1957 Screening for malign ant neoplasm of colon [facility] Bil[facility] Body weight [facility] Calcium [Mass/time] in 24 hour Urine [facility] Calcium [Mass/volume ] in 24 hour Urine [facility] Calcium carbonate/To eligio in [facility] Calcium hydrogen phosphate dihydrate/Total in [facility] Calcium oxalate monohydrate/Total in [facility] Calcium phosphate level [facility] Calculus analysis wi th calculus photography [Interpretation] in [facility] Calculus analysis, qualitative [facility] Calculus analysis, quantitative [facility] Calculus analysis, quantitative, infrared spectroscopy [facility] Cellular material [Mass/mass] of Stone by Estimated [facility] Cholesterol [Mass/volume] in Serum or Plasma [facility] Complement C3 [Mass/volume] in Serum or Plasma [facility] Work Phone: Complement C3 [Mass/volume] in Serum or Plasma [facility] Complement C3 [Mass/volume] in Serum or Plasma [facility] Complement C3 [Mass/volume] in Serum or Plasma [facility] Complement C3 [Mass/volume] in Serum or Plasma [facility] Complement C3 [Mass/volume] in Serum or Plasma [facility] Complement C3 [Mass/volume] in Serum or Plasma [facility] Complement C3 [Mass/volume] in Serum or Plasma [facility] Complement C4 [Mass/volume] in Serum or Plasma [facility] Work Phone: Complement C4 [Mass/volume] in Serum or Plasma [facility] Complement C4 [Mass/volume] in Serum or Plasma [facility] Complement C4 [Mass/volume] in Serum or Plasma [facility] Complement C4 [Mass/volume] in Serum or Plasma [facility] Complement C4 [Mass/volume] in Serum or Plasma [facility] Complement C4 [Mass/volume] in Serum or Plasma [facility] Complement C4 [Mass/volume] in Serum or Plasma [facility] End: 11-26-2025 Comprehensive metabolic 2000 panel - Serum or Plasma Comprehensive metabolic panel Lab Routine Essential hypertension 1 Occurrences starting 11/26/2024 until 11/26/2025 [facility] Work Phone: Comment on above: 1 Occurrences starti ng 11/26/2024 until 11/26/2025 Cystine measurement [facility] Determination of calculus chemical composition [facility] Evaluation procedure [facility] Hemolytic complement CH50 level [facility] Work Phone: Hydroxyapatite [Ener gy Difference] in 24 hour Urine [facility] Laboratory data interpretation [facility] Magnesium [Mass/time ] in 24 hour Urine [facility] Magnesium [Mass/volu me] in Urine [facility] MR Cervical spine WO contrast [facility] Newberyite/Total in [facility] Oxalate [Mass/time] in 24 hour Urine [facility] Patient Education [facility] Work Phone: Patient referral [facility] Work Phone: Phosphate [Mass/time ] in 24 hour Urine [facility] Phosphate [Mass/volu me] in Urine [facility] End: 11-26-2025 Prostatic specific antigen screen Prostatic specific antigen screen Lab Routine Encounter for screening for malignant neoplasm of prostate 1 Occurrences starting 11/26/2024 until 11/26/2025 [facility] Comment on above: 1 Occurrences starti ng 11/26/2024 until 11/26/2025 Specimen source subj ect [Type] [facility] Triamterene measurement [facility] Triple phosphate/Tot al in [facility] Urate [Mass/time] in 24 hour Urine [facility] Urate [Mass/volume] in Urine [facility] Immunizations Immunization Date Immunization Notes Care Provider [facility] 11-03-2024 influenza, high dose seasonal, preservative-free Carlos Eden DO Work Phone: [facility] 11-03-2024 influenza virus vacc ine, unspecified formulation Kali Conklin DPM Work Phone: [facility] 09-06-2024 pneumococcal polysaccharide vaccine, 23 valent Sascha Furlong DO Work Phone: [facility] [employer] [facility] 03-06-2024 COVID-19 (MODERNA) 12Y and older DO Sascha Sutton Work Phone: [facility] 08-23-2023 Covid-19, Mrna, Lnp- s, Pf,erasmo-sucrose,30 Mcg/0.3ml Fall23 DO Sascha Sutton Work Phone: [facility] 08-23-2023 influenza virus vacc ine, unspecified formulation [facility] 08-23-2023 Influenza, High-dose , Quadrivalent Sascha Sutton DO Work Phone: [facility] [employer] [facility] 08-23-2023 RSV vaccine, preF A- preF B, recombinant Zac MUNIZ [facility] 08-23-2023 RSV, bivalent, prote in subunit RSVpreF, diluent reconstituted, 0.5 mL, PF Sascha Sutton DO Work Phone: [facility] 05-20-2023 tetanus toxoid, redu coni diphtheria toxoid, and acellular pertussis vaccine, adsorbed [facility] 12-05-2022 influenza virus vacc ine, unspecified formulation [facility] 12-05-2022 influenza, seasonal, injectable Sascha Sutton Work Phone: [facility] 250 DO Work Phone: 10-08-2022 Pfizer COVID-19 Vac Bivalent 30 MCG/0.3ML Intramuscular Suspension Sascha Sutton Work Phone: [facility] 10-08-2022 SARS-COV-2 (COVID-19 ) Vaccine, Unspecified Sascha Sutton DO Work Phone: [facility] 09-07-2022 Fluzone High-Dose Quadrivalent 0.7 ML Intramuscular Suspension Prefilled Syringe Sascha Sutton Work Phone: [facility] 09-07-2022 influenza virus vacc ine, unspecified formulation [facility] 04-16-2022 Prevnar 20 0.5 ML Intramuscular Suspension Prefilled Syringe Sascha Sutton Work Phone: [facility] 09-23-2021 Lizeth COVID-19 Vac cine 0.5 ML Intramuscular Suspension Sascha Sutton Work Phone: [facility] 07-28-2021 influenza virus vacc ine, unspecified formulation [facility] 07-28-2021 influenza, injectabl e, quadrivalent, preservative free Sascha Lazcanong Work Phone: [facility] [employer] 250 DO Work Phone: 01-26-2021 Lizeth COVID-19 Vac cine 0.5 ML Intramuscular Suspension Sascha Sutton Work Phone: [facility] 08-22-2020 influenza virus vacc ine, unspecified formulation Zac MUNIZ [facility] 08-22-2020 Influenza, injectabl e, Madin Hilda Canine Kidney, preservative free, quadrivalent Sascha Marielong Work Phone: [facility] DO Work Phone: 08-26-2019 zoster vaccine recombinant Sascha Sutton Work Phone: [facility] 08-20-2019 influenza virus vacc ine, unspecified formulation Zac MUNIZ [facility] 08-20-2019 Influenza, injectabl e, Madin Hilda Canine Kidney, quadrivalent with preservative Sascha G Furlong Work Phone: [facility] 06-27-2019 zoster vaccine recombinant Sascha G Furlong Work Phone: [facility] 09-05-2018 influenza virus vacc ine, unspecified formulation Zac MUNIZ [facility] 09-05-2018 Influenza, injectabl e, Madin Melvern Canine Kidney, preservative free, quadrivalent Sascha G Furlong Work Phone: [facility] 07-28-2017 Influenza, injectabl e, Madin Hilda Canine Kidney, preservative free, quadrivalent Sascha Furlong DO Work Phone: [facility] 09-16-2016 pneumococcal conjuga te vaccine, 13 valent Ssacha G Furlong Work Phone: [facility] 09-09-2016 influenza virus vacc ine, unspecified formulation Zac MUNIZ [facility] 09-09-2016 influenza, injectabl e, quadrivalent, contains preservative Sascha G Furlong Work Phone: [facility] 250 DO Work Phone: 12-05-2012 pneumococcal polysaccharide vaccine, 23 valent Sascha G Furlong Work Phone: [facility] 12-05-2012 tetanus toxoid, redu coni diphtheria toxoid, and acellular pertussis vaccine, adsorbed Sascha G Furlong Work Phone: [facility] 11-20-1990 hepatitis B vaccine, pediatric or pediatric/adolescent dosage Sascha Sutton Work Phone: [facility] 10-04-1990 hepatitis B vaccine, pediatric or pediatric/adolescent dosage Sascha Sutton Work Phone: [facility] Payers Date Payer Category Payer Self-pay [id number] 2023 Unknown 2022 Managed Care Other (unspecified) [facility] [id number] 2022 Medicare [id number] 1.13.693.2 .[id number] 2022 Private Health Insurance 1.2 .840.773085.1.13.693.2 .7.9.147401.889977.315 2022 Medicare [id number] 1959 Medicare [id number] 1959 Unknown [id number] 1957 Unknown [id number] 2.16.840.1.657412.3.579.2 .593 1957 Unknown [id number] 2.16.840.1.433894.3.579.2 .593 1957 Unknown [id number] 2.16.840.1.962314.3.579.2 .356 1957 Unknown [id number] 2.16.840.1.845959.3.579.2 .356 1957 Unknown [id number] 2.16.840.1.339498.3.579.2 .356 1957 Unknown [id number] 2.16.840.1.693577.3.579.2 .128 1957 Unknown [id number] 2.16.840.1.062644.3.579.2 .128 1957 Unknown [id number] 2.16.840.1.899630.3.579.2 .128 1957 Unknown [id number] 2.16840.1.983312.3.579.2 .128 1957 Unknown [id number] 2.16.840.1.368199.3.579.2 .1258 1957 Unknown [id number] 2.16.840.1.322632.3.579.2 .1258 1957 Unknown [id number] 2.16.840.1.769902.3.579.2 .1258 1957 Unknown [id number] 2.16.840.1.146643.3.579.2 .1258 1957 Unknown [id number] 2.16.840.1.590265.3.579.2 .1258 1957 Unknown [id number] 2.16.840.1.550446.3.579.2 .1258 1957 Unknown [id number] 2.16.840.1.252199.3.579.2 .1258 1957 Unknown [id number] 2.16.840.1.741479.3.579.2 .1257 Unknown [id number] 2.840.1.868132.3.579.2 .1258 1957 Unknown [id number] 2.840.1.838783.3.579.2 .1258 1957 Unknown [id number] 2.840.1.334910.3.579.2 .1258 1957 Unknown [id number] 2.840.1.016505.3.579.2 .1258 1957 Unknown [id number] 2.840.1.401256.3.579.2 .1258 1957 Unknown [id number] 2.840.1.088227.3.579.2 .1258 1957 Unknown [id number] 2..1.533762.3.579.2 .1258 1957 Unknown [id number] 2.0.1.887732.3.579.2 .1258 1957 Unknown [id number] 2.0.1.628026.3.579.2 .1285 1957 Unknown [id number] 2..1.696398.3.579.2 .1285 1957 Unknown [id number] 2..1.450727.3.579.2 .1285 1957 Unknown [id number] 2.840.1.946085.3.579.2 .1285 1957 Unknown [id number] 2.840.1.677296.3.579.2 .1285 1957 Unknown [id number] 2.840.1.125666.3.579.2 .1285 1957 Unknown [id number] 2.840.1.939393.3.579.2 .1285 1957 Unknown [id number] 2.16.840.1.433128.3.579.2 .128 1957 Unknown [id number] 2.840.1.582031.3.579.2 .1285 1957 Unknown [id number] 2..840.1.587101.3.579.2 .1285 1957 Unknown [id number] 2.840.1.701795.3.579.2 .1285 1957 Unknown [id number] 2.840.1.620308.3.579.2 .1957 Unknown [id number] 2.840.1.798815.3.579.2 .1957 Unknown [id number] 2.840.1.244140.3.579.2 .1957 Unknown [id number] .840.1.749390.3.579.2 .1957 Unknown [id number] .840.1.861770.3.579.2 .1957 Unknown [id number] .840.1.034930.3.579.2 .1957 Unknown [id number] 840.1.614328.3.579.2 . Unknown [id number] Unknown Dellrose OLAYINKA [id number] Unknown [facility] [id number] Unknown [id number] 2.16.840.1.210474.3.579.2 .531 Unknown [id number] 2.16.840.1.803948.3.579.2 .531 Unknown [id number] 2.16840.1.397227.3.579.2 .531 Unknown [id number] 2.16.840.1.313239.3.579.2 .531 Unknown [id number] 2.16.840.1.335632.3.579.2 .531 Unknown [id number] 2.16.840.1.013592.3.579.2 .531 Unknown [id number] 2.16.840.1.846587.3.579.2 .531 Unknown [id number] 2.16.840.1.564233.3.579.2 .531 Unknown [id number] 2.16.840.1.889306.3.579.2 .531 Unknown [id number] 2.16.840.1.531954.3.579.2 .531 Unknown [id number] 2.16.840.1.712693.3.579.2 .531 Unknown [id number] 2.16.840.1.086114.3.579.2 .531 Unknown [id number] 2.16.840.1.045679.3.579.2 .531 Unknown [id number] 2.16.840.1.223720.3.579.2 .531 Unknown [id number] 2.16.840.1.664699.3.579.2 .531 Unknown [id number] 2.16.840.1.752007.3.579.2 .531 Social History Date Type Detail Facility Start: 10-17-2019 End: 04-29-2025 Tobacco smoking status NDIS Ex-smoker (finding) [facility] Start: 1955 Sex Assigned At Male [facility] Start: 04-14-2023 End: 12-28-2023 No alcohol use No alcohol use [facility] Comment on above: pop occasioanl; quit in the 's; Start: 04-14-2023 End: 12-28-2023 Sex Assigned At Male [facility] Tobacco smoking status Never [facility] Start: 02-05-2024 [facility] Start: 12-26-2023 End: 05-28-2025 Tobacco use and exposure Smokeless tobacco non-user [facility] Start: 12-26-2023 End: 04-09-2025 Alcohol intake Lifetime non-drinker (finding) [facility] Start: 12-26-2023 Alcohol Comment none caffeine [facility] Start: 1955 Sex Assigned At Not on file [facility] Start: 06-15-2018 End: 10-11-2024 Sex Male (finding) [facility] Start: 05-28-1975 End: 05-28-1987 History of tobacco use Current smoker [facility] Start: 05-28-1975 End: 05-28-1987 History of tobacco use Cigarette Smoker [facility] History of tobacco use [facility] sm[facility] Start: 10-09-2024 End: 06-11-2025 Alcoholic beverage intake [facility]-drinker (finding) [facility] Has the [employer], or [employer] threatened to shut off services in your home in past 12Mo No [facility] Do you belong to any clubs or organizations such as worship groups, unions, fraternal or athletic groups, or school groups? Yes [facility] Are you now , , , , never or living with a partner? [facility] How often to you hav e a drink containing alcohol? Never [facility] Do you feel stress - tense, restless, nervous, or anxious, or unable to sleep at night because your mind is troubled all the time - these days [OSQ] Not at all [facility] Sexual Orientation [facility] Medical Equipment Procedure Code Equipment Code Equipment Origin al Text Equipment Identifier Dates CAGE [id number] 6DE G CAPSTONE FDA Start: 07-24-2019 SCREW [...] 6X45MM POLY AESCULAP FDA Start: 07-24-2019 CAGE [id number] 6DE G [employer] FDA Start: 07-24-2019 SCREW [...] 6X45MM POLY AESCULAP FDA Start: 07-24-2019 CAGE [id number] 6DE G [employer] FDA Start: 07-24-2019 SCREW [...] 6X45MM POLY AESCULAP FDA Start: 07-24-2019 CAGE [id number] 6DE G [employer] FDA Start: 07-24-2019 SCREW [...] 6X45MM POLY AESCULAP FDA Start: 07-24-2019 CAGE [id number] 6DE G [employer] FDA Start: 07-24-2019 SCREW [...] 6X45MM POLY AESCULAP FDA Start: 07-24-2019 CAGE [id number] 6DE G [employer] FDA Start: 07-24-2019 SCREW [...] 6X45MM POLY AESCULAP FDA Start: 07-24-2019 CAGE [id number] 6DE G [employer] FDA Start: 07-24-2019 SCREW [...] 6X45MM POLY AESCULAP FDA Start: 07-24-2019 CAGE [id number] 6DE G [employer] FDA Start: 07-24-2019 SCREW [...] 6X45MM POLY AESC[employer]AP FDA Start: 07-24-2019 CAGE [id number] 6DE G [employer] FDA Start: 07-24-2019 SCREW [...] 6X45MM POLY [employer] FDA Start: 07-24-2019 CAGE [id number] 6DE G [employer] FDA Start: 07-24-2019 SCREW [...] 6X45MM POLY [employer] FDA Start: 07-24-2019 CAGE [id number] 6DE G [employer] FDA Start: 07-24-2019 SCREW [...] 6X45MM POLY AESCULAP FDA Start: 07-24-2019 CAGE [id number] 6DE G [employer] FDA Start: 07-24-2019 SCREW [...] 6X45MM POLY [employer] FDA Start: 07-24-2019 CAGE [id number] 6DE G [employer] FDA Start: 07-24-2019 SCREW [...] 6X45MM POLY AESCULAP FDA Start: 07-24-2019 CAGE [id number] 6DE G [employer] FDA Start: 07-24-2019 SCREW [...] 6X45MM POLY [employer] FDA Start: 07-24-2019 CAGE [id number] 6DE G [employer] FDA Start: 07-24-2019 SCREW [...] 6X45MM POLY AESCULAP FDA Start: 07-24-2019 CAGE [id number] 6DE G [employer] FDA Start: 07-24-2019 SCREW [...] 6X45MM POLY [employer] FDA Start: 07-24-2019 CAGE [id number] 6DE G [employer] FDA Start: 07-24-2019 SCREW [...] 6X45MM POLY AESCULAP FDA Start: 07-24-2019 CAGE [id number] 6DE G [employer] FDA Start: 07-24-2019 SCREW [...] 6X45MM POLY [employer] FDA Start: 07-24-2019 CAGE [id number] 6DE G [employer] FDA Start: 07-24-2019 SCREW [...] 6X45MM POLY AESCULAP FDA Start: 07-24-2019 CAGE [id number] 6DE G [employer] FDA Start: 07-24-2019 SCREW [...] 6X45MM POLY [employer]CULAP FDA Start: 07-24-2019 CAGE [id number] 6DE G [employer] FDA Start: 07-24-2019 SCREW [...] 6X45MM POLY AESCULAP FDA Start: 07-24-2019 CAGE [id number] 6DE G [employer] FDA Start: 07-24-2019 SCREW [...] 6X45MM POLY [employer]CULAP FDA Start: 07-24-2019 CAGE [id number] 6DE G [employer] FDA Start: 07-24-2019 SCREW [...] 6X45MM POLY [employer]CUL[employer] FDA Start: 07-24-2019 CAGE [id number] 6DE G [employer] FDA Start: 07-24-2019 SCREW [...] 6X45MM POLY [employer] FDA Start: 07-24-2019 CAGE [id number] 6DE G [employer] FDA Start: 07-24-2019 SCREW [...] 6X45MM POLY AESCULAP FDA Start: 07-24-2019 CAGE [id number] 6DE G [employer] FDA Start: 07-24-2019 SCREW [...] 6X45MM POLY [employer]AP FDA Start: 07-24-2019 CAGE [id number] 6DE G [employer] FDA Start: 07-24-2019 SCREW [...] 6X45MM POLY AESCULAP FDA Start: 07-24-2019 CAGE [id number] 6DE G [employer] FDA Start: 07-24-2019 SCREW [...] 6X45MM POLY [employer] FDA Start: 07-24-2019 CAGE [id number] 6DE G [employer] FDA Start: 07-24-2019 SCREW [...] 6X45MM POLY [employer] FDA Start: 07-24-2019 CAGE [id number] 6DE G [employer] FDA Start: 07-24-2019 SCREW [...] 6X45MM POLY [employer]CULAP FDA Start: 07-24-2019 CAGE [id number] 6DE G [employer] FDA Start: 07-24-2019 SCREW [...] 6X45MM POLY AESCULAP FDA Start: 07-24-2019 CAGE [id number] 6DE G [employer] FDA Start: 07-24-2019 SCREW [...] 6X45MM POLY AESCULAP FDA Start: 07-24-2019 CAGE [id number] 6DE G [employer] FDA Start: 07-24-2019 SCREW [...] 6X45MM POLY AESCULAP FDA Start: 07-24-2019 CAGE [id number] 6DE G [employer] FDA Start: 07-24-2019 SCREW [...] 6X45MM POLY AESCULAP FDA Start: 07-24-2019 CAGE [id number] 6DE G [employer] FDA Start: 07-24-2019 SCREW [...] 6X45MM POLY AESCULAP FDA Start: 07-24-2019 CAGE [id number] 6DE G [employer] FDA Start: 07-24-2019 SCREW [...] 6X45MM POLY AESCULAP FDA Start: 07-24-2019 CAGE [id number] 6DE G [employer] FDA Start: 07-24-2019 SCREW [...] 6X45MM POLY AESCULAP FDA Start: 07-24-2019 CAGE [id number] 6DE G [employer] FDA Start: 07-24-2019 SCREW [...] 6X45MM POLY AESCULAP FDA Start: 07-24-2019 CAGE [id number] 6DE G [employer] FDA Start: 07-24-2019 SCREW [...] 6X45MM POLY AESCULAP FDA Start: 07-24-2019 CAGE [id number] 6DE G [employer] FDA Start: 07-24-2019 SCREW [...] 6X45MM POLY [employer]CULAP FDA Start: 07-24-2019 CAGE [id number] 6DE G [employer] FDA Start: 07-24-2019 SCREW [...] 6X45MM POLY [employer] FDA Start: 07-24-2019 CAGE [id number] 6DE G [employer] FDA Start: 07-24-2019 SCREW [...] 6X45MM POLY AESCULAP FDA Start: 07-24-2019 CAGE [id number] 6DE G [employer] FDA Start: 07-24-2019 SCREW [...] 6X45MM POLY [employer] FDA Start: 07-24-2019 CAGE [id number] 6DE G [employer] FDA Start: 07-24-2019 SCREW [...] 6X45MM POLY [employer] FDA Start: 07-24-2019 CAGE [id number] 6DE G [employer] FDA Start: 07-24-2019 SCREW [...] 6X45MM POLY [employer] FDA Start: 07-24-2019 CAGE [id number] 6DE G [employer] FDA Start: 07-24-2019 SCREW [...] 6X45MM POLY AESCULAP FDA Start: 07-24-2019 CAGE [id number] 6DE G [employer] FDA Start: 07-24-2019 SCREW [...] 6X45MM POLY [employer] FDA Start: 07-24-2019 CAGE [id number] 6DE G [employer] FDA Start: 07-24-2019 SCREW [...] S4 6X45MM POLY AESCULAP FDA Start: 07-24-2019 [id number] CAGE [id number] 6DE G [employer] FDA Start: 07-24-2019 SCREW [...] 6X45MM POLY [employer] FDA Start: 07-24-2019 CAGE [id number] 6DE G [employer] FDA Start: 07-24-2019 SCREW [...] 6X45MM POLY [employer] FDA Start: 07-24-2019 CAGE [id number] 6DE G CAPSTONE FDA Start: 07-24-2019 SCREW [...] 6X45MM POLY AESCULAP FDA Start: 07-24-2019 CAGE [id number] 6DE G CAPSTONE FDA Start: 07-24-2019 SCREW [...] 6X45MM POLY AESCULAP FDA Start: 07-24-2019 CAGE [id number] 6DE G CAPSTONE FDA Start: 07-24-2019 SCREW [...] 6X45MM POLY AESCULAP FDA Start: 07-24-2019 CAGE [id number] 6DE G CAPSTONE FDA Start: 07-24-2019 SCREW [...] 6X45MM POLY AESCULAP FDA Start: 07-24-2019 CAGE [id number] 6DE G CAPSTONE FDA Start: 07-24-2019 SCREW [...] 6X45MM POLY AESCULAP FDA Start: 07-24-2019 CAGE [id number] 6DE G CAPSTONE FDA Start: 07-24-2019 SCREW [...] 6X45MM POLY AESCULAP FDA Start: 07-24-2019 CAGE [id number] 6DE G CAPSTONE FDA Start: 07-24-2019 SCREW [...] 6X45MM POLY AESCULAP FDA Start: 07-24-2019 CAGE [id number] 6DE G CAPSTONE FDA Start: 07-24-2019 SCREW [...] 6X45MM POLY AESCULAP FDA Start: 07-24-2019 CAGE [id number] 6DE G CAPSTONE FDA Start: 07-24-2019 SCREW [...] 6X45MM POLY AESCULAP FDA Start: 07-24-2019 CAGE [id number] 6DE G CAPSTONE FDA Start: 07-24-2019 SCREW [...] 6X45MM POLY AESCULAP FDA Start: 07-24-2019 CAGE [id number] 6DE G CAPSTONE FDA Start: 07-24-2019 SCREW [...] 6X45MM POLY AESCULAP FDA Start: 07-24-2019 CAGE [id number] 6DE G CAPSTONE FDA Start: 07-24-2019 SCREW SET S4 AESCULAP FDA Start: 07-24-2019 SCREW SET S4 AESCULAP FDA Start: 07-24-2019 SCREW SET S4 AESCULAP FDA Start: 07-24-2019 SCREW SET S4 AESCULAP FDA Start: 07-24-2019 CANCELLOUS COARS E 7.5CC FDA Start: 07-24-2019 INFUSE XX SMALL 0.7CC FDA Start: 07-24-2019 ARAHS S4 CVD 5.5X4 5MM AESCULAP FDA Start: 07-24-2019 ARASH S4 CVD 5.5X5 0MM AESCULAP FDA Start: 07-24-2019 SCREW S4 6X40MM MONO AESCULAP FDA Start: 07-24-2019 SCREW S4 6X40MM MONO AESCULAP FDA Start: 07-24-2019 SCREW S4 6X45MM POLY AESCULAP FDA Start: 07-24-2019 SCREW S4 6X45MM POLY AESCULAP FDA Start: 07-24-2019 CAGE [id number] 6DE G CAPSTONE FDA Start: 07-24-2019 SCREW [...] /State Functional Status Date Assessment Result Facility 02-16-2025 Functional status Patient at Baseline [facility] Work Phone: 02-15-2025 Functional status Patient at Baseline [facility] Work Phone: 09-03-2024 Functional Status N/A [facility] 05-15-2024 Functional Status N/A [facility] 03-20-2024 Functional Status N/A [facility] 02-28-2024 Functional Status N/A [facility] 09-19-2023 Functional Status N/A [facility] Dennise Mental Status Date Assessment Result Facility 02-16-2025 Cognitive function Cognitive Sta tus Patient at Baseline [facility] Work Phone: 02-15-2025 Cognitive function Cognitive Sta tus Patient at Baseline [facility] Work Phone: Clinical Notes 04-09-2022 to 06-12-2025 Myra Orlando APRN-[facility]LL PEDDLER - 06/11/2025 2:00 PM EDTTelephone Encounter - Kali Conklin DPM - 06/03/2025 10:35 AM EDTTelephone Encounter - Kali Conklin DPM - 06/03/2025 10:35 AM EDT Note Date & Type Note Facility 06-12-2025 Hospital Discharge instructions Patient Education 06/12/2025 07:51:46 Transurethral Resection of the Prostate, Care After Transurethral Resection of the Prostate, Care After The following information offers guidance on how to care for yourself after your procedure. Your health care provider may also give you more specific instructions. If you have problems or questions, contact your health care provider. What can I expect after the procedure? After the procedure, it is common to have: Mild pain in your lower abdomen. Soreness or mild discomfort in your penis or when you urinate. This is from having the catheter inserted during the procedure. A sudden urge to urinate (urgency). A need to urinate often. A small amount of blood in your urine. You may notice some small blood clots in your urine. These are normal. Follow these instructions at home: Medicines Take wcng-fgq-lvtudsk and prescription medicines only as told by your health care provider. If you were prescribed an antibiotic medicine, take it as told by your health care provider. Do not stop taking the antibiotic even if you start to feel better. Activity Rest as told by your health care provider. Avoid sitting for a long time without moving. Get up to take short walks every 1 2 hours. This is important to improve blood flow and breathing. Ask for help if you feel weak or unsteady. You may increase your physical activity gradually as you start to feel better. Do not drive or operate machinery until your health care provider says that it is safe. Do not ride in a car for long periods of time, or as told by your health care provider. Avoid intense physical activity for as long as told by your health care provider. Do not lift anything that is heavier than 10 lb (4.5 kg), or the limit that you are told, until your health care provider says that it is safe. Do not have sex until your health care provider approves. Return to your normal activities as told by your health care provider. Ask your health care provider what activities are safe for you. Preventing constipation You may need to take these actions to prevent or treat constipation: Drink enough fluid to keep your urine pale yellow. Take oaep-cff-pioypuw or prescription medicines. Eat foods that are high in fiber, such as beans, whole grains, and fresh fruits and vegetables. Limit foods that are high in fat and processed sugars, such as fried or sweet foods. General instructions Do not strain when you have a bowel movement. Straining may lead to bleeding from the prostate. This may cause blood clots and trouble urinating. Do not use any products that contain nicotine or tobacco. These products include cigarettes, chewing tobacco, and vaping devices, such as e-cigarettes. If you need help quitting, ask your health care provider. If you go home with a tube draining your urine (urinary catheter), care for the catheter as told by your health care provider. Wear compression stockings as told by your health care provider. These stockings help to prevent blood clots and reduce swelling in your legs. Keep all follow-up visits. This is important. Contact a health care provider if: You have signs of infection, such as: ?Fever or chills. ?Urine that smells very bad. ?Swelling around your urethra that is getting worse. ?Swelling in your penis or testicles. You have difficulty urinating. You have pain that gets worse or does not improve with medicine. You have blood in your urine that does not go away after 1 week of resting and drinking more fluids. You have trouble having a bowel movement. You have trouble having or keeping an erection. No semen comes out during orgasm (dry ejaculation). You have a urinary catheter in place, and you have: ?Spasms or pain. ?Problems with your catheter or your catheter is blocked. Get help right away if: You are unable to urinate. You are having more blood clots in your urine instead of fewer. You have: ?Large blood clots. ?A lot of blood in your urine. ?Pain in your back or lower abdomen. You have difficulty breathing or shortness of breath. You develop swelling or pain in your leg. These symptoms may be an emergency. Get help right away. Call 911. Do not wait to see if the symptoms will go away. Do not drive yourself to the hospital. Summary After the procedure, it is common to have a small amount of blood in your urine. Follow restrictions about lifting and sexual activity as told by your health care provider. Ask what activities are safe for you. Keep all follow-up visits. This is important. This information is not intended to replace advice given to you by your health care provider. Make sure you discuss any questions you have with your health care provider. Document Revised: 08/03/2022 Document Reviewed: 08/03/2022 [employer] Patient Education 2023 [employer]. 06/12/2025 07:51:45 Transurethral Resection of the Prostate Transurethral Resection of the Prostate Transurethral resection of the prostate (TURP) is the removal, or resection, of part of the prostate tissue. This procedure is done to treat an enlarged prostate gland (benign prostatic hyperplasia). The goal of TURP is to remove enough prostate tissue to allow for a normal flow of urine. The procedure will allow you to empty your bladder more completely when you urinate so that you can urinate less often. In a transurethral resection, a thin telescope with a light, a camera, and an electric cutting edge (resectoscope) is passed through the urethra and into the prostate. The opening of the urethra is at the end of the penis. Tell a health care provider about: Any allergies you have. All medicines you are taking, including vitamins, herbs, eye drops, creams, and yabv-vjt-sqrjkbm medicines. Any problems you or family members have had with anesthetic medicines. Any bleeding problems you have. Any surgeries you have had. Any medical conditions you have. Any prostate infections you have had. What are the risks? Generally, this is a safe procedure. However, problems may occur, including: Infection. Bleeding. Allergic reactions to medicines. Blood in the urine (hematuria). Damage to nearby structures or organs. Other problems may occur, but they are rare. They include: Dry ejaculation, or having no semen come out during orgasm. Erectile dysfunction, or being unable to have or keep an erection. Scarring that leads to narrowing of the urethra. This narrowing may block the flow of urine. Inability to control when you urinate (incontinence). Deep vein thrombosis. This is a blood clot that can develop in your leg. TURP syndrome. This can happen when you lose too much sodium during or after the procedure. Some signs and symptoms of this condition include: ?Weakness. ?Headaches. ?Nausea or vomiting. ?Muscle cramping. What happens before the procedure? When to stop eating and drinking Follow instructions from your health care provider about what you may eat and drink before your procedure. These may include: 8 hours before your procedure ?Stop eating most foods. Do not eat meat, fried foods, or fatty foods. ?Eat only light foods, such as toast or crackers. ?All liquids are okay except energy drinks and alcohol. 6 hours before your procedure ?Stop eating. ?Drink only clear liquids, such as water, clear fruit juice, black coffee, plain tea, and sports drinks. ?Do not drink energy drinks or alcohol. 2 hours before your procedure ?Stop drinking all liquids. ?You may be allowed to take medicines with small sips of water. If you do not follow your health care provider's instructions, your procedure may be delayed or canceled. Medicines Ask your health care provider about: Changing or stopping your regular medicines. This is especially important if you are taking diabetes medicines or blood thinners. Taking medicines such as aspirin and ibuprofen. These medicines can thin your blood. Do not take these medicines unless your health care provider tells you to take them. Taking skzp-fsn-hnopeey medicines, vitamins, herbs, and supplements. Surgery safety Ask your health care provider what steps will be taken to help prevent infection. These steps may include: Removing hair at the surgery site. Washing skin with a germ-killing soap. Taking antibiotic medicine. General instructions Do not use any products that contain nicotine or tobacco for at least 4 weeks before the procedure. These products include cigarettes, chewing tobacco, and vaping devices, such as e-cigarettes. If you need help quitting, ask your health care provider. If you will be going home [...] to make you fall asleep (general anesthetic). ?A medicine that is injected into your spine to numb the area below and slightly above the injection site (spinal anesthetic). Your legs will be placed in foot rests (stirrups) so that your legs are apart and your knees are bent. The resectoscope will be passed through your urethra to your prostate. Parts of your prostate will be resected using the cutting edge of the resectoscope. Fluid will be passed to rinse out the cut tissues (irrigation). The resectoscope will be removed. A small, thin tube (catheter) will be passed through your urethra and into your bladder. The catheter will drain urine into a bag outside of your body. The procedure may vary among health care providers and hospitals. What happens after the procedure? Your blood pressure, heart rate, breathing rate, and blood oxygen level will be monitored until you leave the hospital or clinic. You will be given fluids through the IV. The IV will be removed when you start eating and drinking normally. You may have some pain. Pain medicine will be available to help you. You will have a catheter draining your urine. ?You may have blood in your urine. Your catheter may be kept in until your urine is clear. ?Your urinary drainage will be monitored. If necessary, your bladder may be rinsed out (irrigated) through your catheter. You will be encouraged to walk around as soon as possible. You may have to wear compression stockings. These stockings help to prevent blood clots and reduce swelling in your legs. If you were given a sedative during the procedure, it can affect you for several hours. Do not drive or operate machinery until your health care provider says that it is safe. Summary Transurethral resection of the prostate (TURP) is the removal (resection) of part of the prostate tissue. The goal of this procedure is to remove enough prostate tissue to allow for a normal flow of urine. Follow instructions from your health care provider about taking medicines and about eating and drinking before the procedure. This information is not intended to replace advice given to you by your health care provider. Make sure you discuss any questions you have with your health care provider. Document Revised: 08/03/2022 Document Reviewed: 08/03/2022 [employer] Patient Education 2023 [employer]. Follow Up Care 05/14/2025 13:50:07 With:FLAVIO ONEAL, Zac De Oliveira, URL Address: [facility] [address] , [place] [phone] When: Unknown [facility] [place] 06-12-2025 Note Patient Education Urology Transurethral Resection of the Prostate, Care After The following information offers guidance on how to care for yourself after your procedure. Your health care provider may also give you more specific instructions. If you have problems or questions, contact your health care provider. What can I expect after the procedure? After the procedure, it is common to have: ??? Mild pain in your lower abdomen. ??? Soreness or mild discomfort in your penis or when you urinate. This is from having the catheter inserted during the procedure. ??? A sudden urge to urinate (urgency). ??? A need to urinate often. ??? A small amount of blood in your urine. You may notice some small blood clots in your urine. These are normal. Follow these instructions at home: Medicines ??? Take amas-nra-bynkuve and prescription medicines only as told by your health care provider. ??? If you were prescribed an antibiotic medicine, take it as told by your health care provider. Do not stop taking the antibiotic even if you start to feel better. Activity ??? Rest as told by your health care provider. ??? Avoid sitting for a long time without moving. Get up to take short walks every 1?2 hours. This is important to improve blood flow and breathing. Ask for help if you feel weak or unsteady. You may increase your physical activity gradually as you start to feel better. ??? Do not drive or operate machinery until your health care provider says that it is safe. ??? Do not ride in a car for long periods of time, or as told by your health care provider. ??? Avoid intense physical activity for as long as told by your health care provider. ??? Do not lift anything that is heavier than 10 lb (4.5 kg), or the limit that you are told, until your health care provider says that it is safe. ??? Do not have sex until your health care provider approves. ??? Return to your normal activities as told by your health care provider. Ask your health care provider what activities are safe for you. Preventing constipation You may need to take these actions to prevent or treat constipation: ??? Drink enough fluid to keep your urine pale yellow. ??? Take phml-xas-hcwiuiz or prescription medicines. ??? Eat foods that are high in fiber, such as beans, whole grains, and fresh fruits and vegetables. ??? Limit foods that are high in fat and processed sugars, such as fried or sweet foods. General instructions ??? Do not strain when you have a bowel movement. Straining may lead to bleeding from the prostate. This may cause blood clots and trouble urinating. ??? Do not use any products that contain nicotine or tobacco. These products include cigarettes, chewing tobacco, and vaping devices, such as e-cigarettes. If you need help quitting, ask your health care provider. ??? If you go home with a tube draining your urine (urinary catheter), care for the catheter as told by your health care provider. ??? Wear compression stockings as told by your health care provider. These stockings help to prevent blood clots and reduce swelling in your legs. ??? Keep all follow-up visits. This is important. Contact a health care provider if: ??? You have signs of infection, such as: ? Fever or chills. ? Urine that smells very bad. ? Swelling around your urethra that is getting worse. ? Swelling in your penis or testicles. ??? You have difficulty urinating. ??? You have pain that gets worse or does not improve with medicine. ??? You have blood in your urine that does not go away after 1 week of resting and drinking more fluids. ??? You have trouble having a bowel movement. ??? You have trouble having or keeping an erection. ??? No semen comes out during orgasm (dry ejaculation). ??? You have a urinary catheter in place, and you have: ? Spasms or pain. ? Problems with your catheter or your catheter is blocked. Get help right away if: ??? You are unable to urinate. ??? You are having more blood clots in your urine instead of fewer. ??? You have: ? Large blood clots. ? A lot of blood in your urine. ? Pain in your back or lower abdomen. ??? You have difficulty breathing or shortness of breath. ??? You develop swelling or pain in your leg. These symptoms may be an emergency. Get help right away. Call 911. ??? Do not wait to see if the symptoms will go away. ??? Do not drive yourself to the hospital. Summary ??? After the procedure, it is common to have a small amount of blood in your urine. ??? Follow restrictions about lifting and sexual activity as told by your health care provider. Ask what activities are safe for you. ??? Keep all follow-up visits. This is important. This information is not intended to replace advice given to you by your health care provider. Make sure you discuss any questions you have with your health care provider. Document Revised: 08/03/2022 D (more content not included)... [facility] 06-11-2025 History of Present illness Narrative IM PROGRESS NOTE Patient - Valentin Torre Age - 70 y.o. - 1955 ASSESSMENT & PLAN 1. Hospital discharge follow-up (Primary) ER -advised patient to follow up with Cardiology -advised patient to follow up with Neurology 2. Syncope, unspecified syncope type -recommended 30 day event monitor -patient to call patient care nursing assistant to get that ordered since the cardiologists are not in the [facility] system who they see -orthostatic blood pressure negative -reviewed ER visit including radiology testing, labs, and assessment. Subjective The following portions of the patient's history were reviewed and updated as appropriate: allergies, current medications, past family history, past medical history, past social history, past surgical history and problem list. Patient is here for follow-up from emergency room visit in which he went after having a fainting episode in the car. states patient was sitting in passenger seat of the car and all of a sudden slumped forward. He was difficult to awakened but eventually she was able to shake him enough that he woke up. states this is the 2nd time this has happened. Patient does not really remember the episode. Patient does already see cardiology and Neurology and were advised by the emergency department to follow up with both of those specialists to determine a further course of care. He has not had any fainting episodes since the emergency department visit. He denies having chest pain, shortness of breath, diaphoresis, dizziness, or headache prior to the event. He does endorse feeling foggy prior to the episode. Denies any new medication changes. Patient states he does feel palpitations from time to time; however, he did not have any palpitations prior to this episode Review of Systems Constitutional: Negative for activity change, appetite change, chills, diaphoresis, fatigue and fever. HENT: Negative for tinnitus and trouble swallowing. Eyes: Negative for visual disturbance. Respiratory: Negative for cough, chest tightness, shortness of breath and wheezing. Cardiovascular: Positive for palpitations (Occasional) and leg swelling (Where compression stockings to prevent swelling). Negative for chest pain. Gastrointestinal: Negative for abdominal pain, diarrhea, nausea and vomiting. Genitourinary: Negative for difficulty urinating. Skin: Negative for rash. Neurological: Positive for syncope. Negative for dizziness, speech difficulty, weakness, light-headedness, numbness and headaches. Psychiatric/Behavioral: Negative for sleep disturbance. Exam BP 110/68 (BP Site: Left Arm, BP Postition: Sitting, BP CUFF SIZE: S (7-9 inches)) Pulse 73 Temp 37.1 C (98.8 F) (Tympanic) Resp 20 Ht 170.2 cm (5' 7.01 ) Wt 100.2 kg (221 lb) SpO2 96% BMI 34.61 kg/m Physical Exam Vitals and nursing note reviewed. Constitutional: General: He is not in acute distress. Appearance: He is well-developed. HENT: Mouth/Throat: Mouth: Mucous membranes are moist. Pharynx: Oropharynx is clear. Eyes: Conjunctiva/sclera: Conjunctivae normal. Pupils: Pupils are equal, round, and reactive to light. Cardiovascular: Rate and Rhythm: Normal rate and regular rhythm. Occasional Extrasystoles are present. Heart sounds: Normal heart sounds. No murmur heard. Pulmonary: Effort: Pulmonary effort is normal. Breath sounds: Normal breath sounds. Abdominal: Tenderness: There is no abdominal tenderness. Musculoskeletal: General: Normal range of motion. Cervical back: Normal range of motion. Right lower leg: No edema. Left lower leg: No edema. Comments: Compression stockings in place Lymphadenopathy: Cervical: No cervical adenopathy. Skin: General: Skin is warm and dry. Capillary Refill: Capillary refill takes less than 2 seconds. Findings: No rash. Neurological: General: No focal deficit present. Mental Status: He is alert and oriented to person, place, and time. Cranial Nerves: No cranial nerve deficit. Coordination: Coordination normal. Psychiatric: Behavior: Behavior normal. Meds Current Outpatient Medications: acetaminophen (TYLENOL EXTRA STRENGTH) 500 mg tablet, Take 2 tablets (1,000 mg total) by mouth as needed in the morning and 2 tablets (1,000 mg total) as needed at noon and 2 tablets (1,000 mg total) as needed in the evening for pain., Disp: , Rfl: aspirin 81 mg, Take 1 tablet (81 mg total) by mouth in the morning., Disp: , Rfl: budesonide (RINOCORT AQUA) 32 mcg/actuation nasal spray, 62,500 sprays., Disp: , Rfl: budesonide-formoteroL (SYMBICORT) 80-4.5 mcg/actuation inhaler, Inhale 2 puffs in the morning and 2 puffs before bedtime., Disp: 10.2 g, Rfl: 5 dutasteride (AVODART) 0.5 mg capsule, TAKE 1 CAPSULE BY MOUTH EVERY DAY FOR 30 DAYS, Disp: , Rfl: fexofenadine-pseudoephedrine (SEEMA-D 24) 180-240 mg per 24 hr tablet, Take 1 tablet by mouth as needed., Disp: , Rfl: fluticasone propionate (FLONASE) 50 mcg/actuation nasal spray, 1 spray in the morning., Disp: , Rfl: folic acid (FOLVITE) 1 mg tablet, , Disp: , Rfl: gabapentin (NEURONTIN) 100 mg capsule, Take 1 capsule (100 mg total) by mouth 3 (three) times a day., Disp: 90 capsule, Rfl: 1 hydrOXYchloroQUINE (PLAQUENIL) 200 mg tablet, , Disp: , Rfl: insulin syringe-needle U-100 1 mL 31 gauge x 5/16 syringe, , Disp: , Rfl: KLOR-CON/EF 25 mEq disintegrating tablet, Take 1 tablet (25 mEq total) by mouth in the morning and 1 tablet (25 mEq total) before bedtime., Disp: , Rfl: leflunomide (ARAVA) 10 mg tablet, , Disp: , Rfl: leucovorin (WELLCOVORIN) 5 mg tablet, , Disp: , Rfl: lisinopril-hydroCHLOROthiazide (PRINZIDE,ZESTORETIC) 20-12.5 mg per tablet, TAKE 1 TABLET BY MOUTH DAILY, Disp: 90 tablet, Rfl: 1 meloxicam (MOBIC) 15 mg tablet, , Disp: , Rfl: methotrexate, PF, 25 mg/mL chemo syringe, , Disp: , Rfl: montelukast (SINGULAIR) 10 mg tablet, TAKE 1 TABLET BY MOUTH DAILY, Disp: 90 tablet, Rfl: 3 omeprazole (PriLOSEC) 40 mg capsule, Oral for 90 Days, Disp: , Rfl: prednisoLONE acetate (PRED FORTE) 1 % ophthalmic suspension, , Disp: , Rfl: predniSONE (DELTASONE) 20 mg tablet, prn, Disp: , Rfl: primidone (MYSOLINE) 50 mg tablet, 1 tablet (50 mg total). 1 po in AM 3 po at HS, Disp: , Rfl: simvastatin (ZOCOR) 20 mg tablet, TAKE 1 TABLET BY MOUTH DAILY, Disp: 90 tablet, Rfl: 3 tamsulosin (FLOMAX) 0.4 mg capsule, Take 1 capsule (0.4 mg total) by mouth nightly., Disp: , Rfl: traMADoL (ULTRAM) 50 mg tablet, , Disp: , Rfl: loratadine (CLARITIN) 10 mg tablet, Take 1 tablet (10 mg total) by mouth in the morning. (Patient not taking: Reported on 06/11/2025), Disp: 30 tablet, Rfl: 0 naproxen (NAPROSYN) 250 mg tablet, , Disp: , Rfl: Lab Results No visits with results within 1 Month(s) from this visit. Latest known visit with results is: Orders Only on 12/07/2024 Component Date Value Ref Range Status PSA 12/07/2024 2.510 ng/mL Final External Cholesterol 12/07/2024 125 Final External Cholesterol:Hdl 12/07/2024 53 Final External Ldl (Calc) 12/07/2024 61 Final External Triglycerides 12/07/2024 54 Final External Albumin 12/07/2024 4.1 Final External Alt Sgpt 12/07/2024 28 Final External Anion Gap 12/07/2024 10.2 Final External Ast 12/07/2024 17 Final External Blood Urea Nitrogen Bun 12/07/2024 29 Final External Calcium Ca 12/07/2024 8.9 Final External Chloride 12/07/2024 110 Final External Co2 / Carbon Dioxide 12/07/2024 22.8 Final External Creatinine 12/07/2024 0.85 Final External Gfr Non Amer 12/07/2024 >60.0 Final External Alkaline Phosphatase 12/07/2024 82 Final External Glucose Fasting Or Rando* 12/07/2024 97 Final External Potassium K 12/07/2024 4.0 Final External Sodium Na 12/07/2024 139 Final Total Bilirubin 12/07/2024 0.6 Final External Total Protein 12/07/2024 6.4 Final Other Testing No results found. Return for Next scheduled follow up. [facility] Physicians Office: [phone] This note is dictated with the use of M*Modal. Please note that this dictation was completed with computer voice recognition software. Quite often unanticipated grammatical, syntax, homophones, and other interpretive errors are inadvertently transcribed by the computer software. Please disregard these errors. Please excuse any errors that have escaped final proofreading. DOMINGO Hyatt 06/11/25 1451 documented in this encounter [facility] 06-03-2025 Telephone encounter Note Patient to call back if no improvement with steroid pack for appt. [facility] 06-03-2025 Miscellaneous Notes Patient to call back if no improvement with steroid pack for appt. documented in this encounter [facility] 05-28-2025 History of Present illness Narrative Subjective Patient ID: Valentin Torre is a 70 y.o. male. Valentin presents to discuss his PFT's. They were ordered by his business process specialist and were abnormal. He gets short of breath with minimal activity such [...] and post discharge medication. Review of Systems Objective Physical [...] inhaler; Inhale 2 puffs in the morning and 2 puffs before bedtime. PFTs were reviewed and [...] and the following intervention(s) were applied: encouragement to exercise and prescribed diet education. documented in this encounter [facility] 05-15-2025 History of Present illness Narrative Images from the original note were not included. CHIEF COMPLAINT REASON FOR VISIT : Follow up HPI: TREMOR -He states his tremors are much better. Barely noticeable at all -In hands, L > R -He denies any tremors anywhere else. -He states they were worse when he was trying to do something -He states stress and fatigue makes them worse at times -He is able to sit and carve for an hour without issues -He denies changes in taste or smell -denies dysphagia -he does drool at times and he is starting to worsen -memory is stable, has some short term forgetfulness -No issues with ADLs -No issues with driving GAIT INSTABILITY -He states his balance is still not good. No falls since January. -He has had some close calls. -he shuffles at times but tries to make sure he picks up his feet -He denies N/T in his feet but feels some tingling at his ankle and su at times, R > L -He has rare postural lightheadedness -He uses a cane as needed -last week he got lightheaded outside and his found him outside. He felt better after going inside in the AC HEADACHES -States he has had more headaches lately. -He states that he has pain right in the front of his head. CURRENT MEDICATIONS: ALLERGIES/DISCONTINUE MEDICATIONS Current Outpatient Medications Medication Instructions acetaminophen (Tylenol) 500 MG tablet Take by mouth biotin 10 mg, Oral, 2 times daily budesonide (Rhinocort AQ) 32 MCG/ACT nasal spray 62,500 sprays colchicine 0.6 MG tablet dexAMETHasone (Decadron) 2 MG tablet Take 1 tablet by mouth once daily for 7 days. folic acid (Folvite) 1 MG tablet folic acid 1 mg tablet hydroxychloroquine (Plaquenil) 200 MG tablet hydroxychloroquine 200 mg tablet TAKE 1 TABLET BY MOUTH TWICE A DAY leflunomide (Arava) 10 MG tablet leucovorin (Wellcovorin) 5 MG tablet Take by mouth. Take with a full glass of water. lisinopril-hydroCHLOROthiazide 20-12.5 MG tablet 1 tablet, Every morning meloxicam (Mobic) 15 MG tablet methotrexate (XATMEP) 2.5 mg Methotrexate Sodium (methotrexate PF) 50 MG/2ML syringe montelukast (Singulair) 10 MG tablet Take by mouth nabumetone (RELAFEN) 750 mg omeprazole (PriLOSEC) [address] capsule potassium bicarbonate (K-Lyte) 25 MEQ effervescent tablet Take by mouth prednisoLONE acetate (Pred-Forte) 1 % ophthalmic suspension primidone (Mysoline) 50 MG tablet Take 1 tablet (50 mg) by mouth Daily AND 3 tablets (150 mg) at bedtime. simvastatin (ZOCOR) 20 mg, Nightly tamsulosin (FLOMAX) 0.4 mg, Daily traMADol (Ultram) 50 MG tablet Take by mouth Allergies Allergen Reactions Aspirin Buf(Unktbe-Tfhzqz-Xtl) Other Reaction(s): Other (See Comments), Unknown Abdominal [...] knee prob Bleeding take ASA Cleft palate (HHS-HCC) 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HCC) Elevated partial thromboplastin time (PTT) Eye cancer, left (HCC) Fracture fracture toes & fingers Fracture, ribs Hearing loss History of VDRL false positive Hyperlipidemia Hypertension Inverted T wave when not active Iritis Kidney stones Lupus Osteoporosis Perforated eardrum RA (retrograde amnesia) Seasonal allergies Past Surgical History: Procedure Laterality Date CARPAL TUNNEL RELEASE both wrists COLONOSCOPY EGD EYE SURGERY Left 2013 removed linda left(cancer) HIATAL HERNIA REPAIR 04/26/2017 [...] Father Hypertension Father Depression: Not at risk (05/07/2025) Received from [facility] PHQ-2 Total Score: 0 REVIEW OF SYMPTOMS: Review of Systems Constitutional: Negative for chills and fatigue. HENT: Positive for drooling. Negative for congestion, tinnitus and trouble swallowing. Eyes: Negative for visual disturbance. Respiratory: Positive for shortness of breath. Negative for cough. Cardiovascular: Negative for chest pain, palpitations and leg swelling. Gastrointestinal: Negative for abdominal pain and nausea. Genitourinary: Positive for frequency and urgency. Negative for difficulty urinating. Musculoskeletal: Positive for back pain and gait problem. Negative for arthralgias, myalgias, neck pain and neck stiffness. Neurological: Positive for tremors and light-headedness. Negative for dizziness, weakness, numbness and headaches. Psychiatric/Behavioral: Negative for agitation, confusion and sleep disturbance. OBJECTIVE: 04/09/2025 4:02 PM 03/20/2025 10:32 AM 02/21/2025 9:17 AM Vitals BMI 32.54 kg/m2 32.54 kg/m2 32.84 kg/m2 BSA (m2) 2.16 m2 2.16 m2 2.17 m2 Systolic 122 Diastolic 64 Resp 16 16 Height (in) 5' 8 5' 8 5' 8 Weight (lb) 214 214 216 Visit Report Report Report EXAM: Neurological Exam Mental Status Awake, alert and oriented to person, place and time. Oriented to person, place and time. Recent and remote memory are intact. Speech is normal. Language is fluent with no aphasia. Attention and concentration are normal. Cranial Nerves CN II: Visual kirby full to confrontation. CN III, IV, : Extraocular movements intact bilaterally. Normal lids and orbits bilaterally. Pupils equal round and reactive to light bilaterally. CN V: Facial sensation is normal. CN VII: Full and symmetric facial movement. CN VIII: Hearing is normal. CN XII: Tongue midline without atrophy or fasciculations. Motor Normal muscle bulk throughout. Normal muscle tone. Strength is 5/5 throughout all four extremities. Sensory Light touch is normal in upper and lower extremities. Temperature is normal in upper and lower extremities. Vibration abnormality: Decreased vibration at the left great toe and absent on the right. Reflexes Right Left Brachioradialis 2+ 2+ Biceps 2+ 2+ Patellar Tr Tr Achilles Tr Tr Right Plantar: downgoing Left Plantar: downgoing Right pathological reflexes: Teja's absent. Ankle clonus absent. Left pathological reflexes: Teja's absent. Ankle clonus absent. Coordination Right: Fbaoxb-yj-carl normal. Rapid alternating movement normal.Left: Pxwkxy-do-cfzj normal. Rapid alternating movement normal. Slight intention tremor, no bradykinesias or cogwheel rigidity. Gait Casual gait: Romberg is absent. Unsteady, ambulating with a cane, broad based, uses arms to get up. PROCEDURE: NONE ASSESSMENT AND PLAN: Intention tremor Valentin Torre is a 70 y.o. male who presents with tremor in the bilateral upper extremities most consistent with benign essential tremor. He does have some gait instability which raises concern for a Parkinsonism but he has no other signs today on exam. We will monitor for conversion. He is doing well on primidone and gabapentin. Gait Instability/Neuropathy Likely multifactorial. He has evidence of neuropathy on exam today with changes in vibratory sense in the distal LE bilaterally. He gets an occasional tingling sensation but not bothersome. He is on gabapentin for tremor which can help with neuropathic symptoms as well. We can consider EMG but would not likely change therapy. We can always reconsider. I counseled the patient on fall precautions. I discussed the high risk of trauma and debility associated with falls. Patient verbalized understanding. PLAN: Continue primidone 50 mg-Take 1 tablet (50 mg) by mouth Daily AND 3 tablets (150 mg) at bedtime Continue Gabapentin 100mg TID Continue thiamine 100 mg by mouth once daily I counseled the patient on the possible side effects and interactions of medications. Continue PT/HEP for balance and strengthening I counseled the patient on fall precautions. I discussed the high risk of trauma and debility associated with falls. Patient verbalized understanding. I will see the patient back in 4 months, or sooner if needed, to make further recommendations Diagnoses and all orders for this visit: Intention tremor - gabapentin (Neurontin) 100 MG capsule; Take 1 capsule (100 mg) by mouth in the morning and 1 capsule (100 mg) in the evening and 1 capsule (100 mg) before bedtime. Polyneuropathy documented in this encounter [facility] 05-07-2025 History of Present illness Narrative Subjective SUBJECTIVE: Patient ID: Valentin Torre is a 70 y.o. male who presents for a Medicare Annual Wellness exam. HPI The following portions of the patient's history were reviewed and updated as appropriate: allergies, current medications, past family history, past medical history, past social history, past surgical history and problem list. AWV FLOWSHEET : Lifestyle Assessment Do you smoke or use smokeless tobacco?: No If you smoke or use smokeless tobacco, are you ready to quit?: NA Are you exposed to secondhand smoke?: No On average, how many drinks of alcohol do you consume in a week?: None Do you exercise for 30 or more minutes on average at least 3 days a week?: (!) Never Do you have any tooth, denture, or oral problems?: No Do you snore or has anyone told you that you snore?: No Do you try to eat a balanced diet?: Yes Do you experience leakage of urine, also known as urinary incontinence?: (!) Sometimes Do you have difficulty bathing?: No Do you have difficulty dressing?: No Do you have difficulty grooming?: No Do you have difficulty eating?: No Do you have difficulty getting out of a chair?: (!) Yes Do you have difficulty walking?: (!) Yes Do you have difficulty using the toilet?: (!) Yes Do you have difficulty doing laundry?: (!) Yes Do you have difficulty with housekeeping?: (!) Yes Do you have difficulty preparing a meal?: No Do you have difficulty shopping?: (!) Yes Do you have difficulty using transportation?: No Do you have difficulty paying bills?: No Do you have difficulty managing finances?: No Fall Risk Fall Risk Assessment Completed?: Yes Have you fallen in the past year?: (!) Yes How many times?: 2+ Were you injured?: No Are you worried about falling?: (!) Yes Do you feel unsteady when standing or walking?: (!) Yes Risk Stratification: High Risk Depression Screening Little interest or pleasure in doing things: Not at all Feeling down, depressed, or hopeless: Not at all Trouble falling or staying asleep, or sleeping too much: Not at all Feeling tired or having little energy: Not at all Poor appetite or overeating: Not at all Feeling bad about yourself - or that you are a failure or have let yourself or your family down: Not at all Trouble concentrating on things, such as reading the newspaper or watching television: Not at all Moving or speaking so slowly that other people could have noticed. Or the opposite - being so fidgety or restless that you have been moving around a lot more than usual: Not at all Thoughts that you would be better off , or of hurting yourself in some way: Not at all PEG Scale What number best describes your pain on average in the past week?: 5 Safety Assessment Do you have throw rugs on the floor?: No Do you feel safe at your home?: Yes Do you feel unsteady when walking?: (!) Yes Are you having difficulty with driving?: No Do you have trouble seeing?: No Do you use a bath bar/seat?: (!) Yes Do you use a raised toilet seat?: (!) Yes Do you use a cane?: (!) Yes Do you use a walker?: (!) Yes Do you use a wheelchair?: No Hearing Assessment Do you strain or struggle to hear/understand conversations?: No Do you have trouble hearing the television or radio when others do not?: No Does your family ever voice concerns about your hearing?: No Do you wear hearing aid/s?: (!) Yes Personal Health During the past 4 weeks, how would you rate your overall health?: (!) Fair Do you understand how to take all of your medications?: Yes How confident are you that you can control and manage most of your health problems?: (!) Somewhat confident In the past 12 months, how many times have you been hospitalized?: (!) One End of Life Planning Do you have a living will?: Yes Do you have a durable power of district attorney?: Yes Cognitive Screening Do you have trouble remembering or recalling facts or events?: (!) Yes Do family members or caregivers report that you have difficulty remembering things?: No 6-Cit: Normal REVIEW OF SYSTEMS: Review of Systems Objective PHYSICAL EXAMINATION: Vitals: 05/07/25 0930 BP: 126/70 Weight: 99.8 kg (220 lb) Height: 170.2 cm (5' 7 ) Physical Exam Assessment/Plan ASSESSMENT/PLAN Encounter Diagnoses Name Primary? Medicare annual wellness visit, subsequent Yes Screening for depression Health maintenance discussed. Depression screen was negative. At least 3 minute spent administering and discussing. Cognitive evaluation did not reveal any impairment. They have advanced directives in place. Return in about 1 year (around 05/07/2026). [facility] enter 04-29-2025 Hospital Discharge instructions Patient Education 04/29/2025 10:01:11 Cystoscopy Cystoscopy Cystoscopy is a procedure that is used to help diagnose and sometimes treat conditions that affect the lower urinary tract. The lower urinary tract includes the bladder and the urethra. The urethra is the tube that drains urine from the bladder. Cystoscopy is done using a thin, tube-shaped instrument with a light and camera at the end (cystoscope). The cystoscope may be hard or flexible, depending on the goal of the procedure. The cystoscope is inserted through the urethra, into the bladder. Cystoscopy may be recommended if you have: Urinary tract infections that keep coming back. Blood in the urine (hematuria). An inability to control when you urinate (urinary incontinence) or an overactive bladder. Unusual cells found in a urine sample. A blockage in the urethra, such as a urinary stone. Painful urination. An abnormality in the bladder found during an intravenous pyelogram (IVP) or CT scan. Cystoscopy may also be done to remove a sample of tissue to be examined under a microscope (biopsy). Tell a health care provider about: Any allergies you have. All medicines you are taking, including vitamins, herbs, eye drops, creams, and xrmo-qui-jwkinok medicines. Any problems you or family members have had with anesthetic medicines. Any blood disorders you have. Any surgeries you have had. Any medical conditions you have. Whether you are or may be . What are the risks? Generally, this is a safe procedure. However, problems may occur, including: Infection. Bleeding. Allergic reactions to medicines. Damage to other structures or organs. What happens before the procedure? Medicines Ask your health care provider about: Changing or stopping your regular medicines. This is especially important if you are taking diabetes medicines or blood thinners. Taking medicines such as aspirin and ibuprofen. These medicines can thin your blood. Do not take these medicines unless your health care provider tells you to take them. Taking uamv-dvn-woyzjdp medicines, vitamins, herbs, and supplements. Tests You may have an exam or testing, such as: X-rays of the bladder, urethra, or kidneys. CT scan of the abdomen or pelvis. Urine tests to check for signs of infection. General instructions Follow instructions from your health care provider about eating or drinking restrictions. Ask your health care provider what steps will be taken to help prevent infection. These steps may include: ?Washing skin with a germ-killing soap. ?Taking antibiotic medicine. Plan to have a responsible adult take you home from the hospital or clinic. What happens during the procedure? You will be given one or more of the following: ?A medicine to help you relax (sedative). ?A medicine to numb the area (local anesthetic). The area around the opening of your urethra will be cleaned. The cystoscope will be passed through your urethra into your bladder. Germ-free (sterile) fluid will flow through the cystoscope to fill your bladder. The fluid will stretch your bladder so that your health care provider can clearly examine your bladder palmer. Your doctor will look at the urethra and bladder. Your doctor may take a biopsy or remove stones. The cystoscope will be removed, and your bladder will be emptied. The procedure may vary among health care providers and hospitals. What can I expect after the procedure? After the procedure, it is common to have: Some soreness or pain in your abdomen and urethra. Urinary symptoms. These include: ?Mild pain or burning when you urinate. Pain should stop within a few minutes after you urinate. This may last for up to 1 week. ?A small amount of blood in your urine for several days. ?Feeling like you need to urinate but producing only a small amount of urine. Follow these instructions at home: Medicines Take iknx-kyu-tvgwgnc and prescription medicines only as told by your health care provider. If you were prescribed an antibiotic medicine, take it as told by your health care provider. Do not stop taking the antibiotic even if you start to feel better. General instructions Return to your normal activities as told by your health care provider. Ask your health care provider what activities are safe for you. If you were given a sedative during the procedure, it can affect you for several hours. Do not drive or operate machinery until your health care provider says that it is safe. Watch for any blood in your urine. If the amount of blood in your urine increases, call your health care provider. Follow instructions from your health care provider about eating or drinking restrictions. If a tissue sample was removed for testing (biopsy) during your procedure, it is up to you to get your test results. Ask your health care provider, or the department that is doing the test, when your results will be ready. Drink enough fluid to keep your urine pale yellow. Keep all follow-up visits. This is important. Contact a health care provider if: You have pain that gets worse or does not get better with medicine, especially pain when you urinate. You have trouble urinating. You have more blood in your urine. Get help right away if: You have blood clots in your urine. You have abdominal pain. You have a fever or chills. You are unable to urinate. Summary Cystoscopy is a procedure that is used to help diagnose and sometimes treat conditions that affect the lower urinary tract. Cystoscopy is done using a thin, tube-shaped instrument with a light and camera at the end. After the procedure, it is common to have some soreness or pain in your abdomen and urethra. Watch for any blood in your urine. If the amount of blood in your urine increases, call your health care provider. If you were prescribed an antibiotic medicine, take it as told by your health care provider. Do not stop taking the antibiotic even if you start to feel better. This information is not intended to replace advice given to you by your health care provider. Make sure you discuss any questions you have with your health care provider. Document Revised: 07/21/2022 Document Reviewed: 06/19/2021 [employer] Patient Education 2023 [employer]. Follow Up Care 10/30/2024 09:42:08 With:FLAVIO ONEAL, Zac De Oliveira, URL Address: [facility] [address] , [place] [address]- When: Unknown [facility] 04-29-2025 Note Patient Education Urology Cystoscopy Cystoscopy is a procedure that is used to help diagnose and sometimes treat conditions that affect the lower urinary tract. The lower urinary tract includes the bladder and the urethra. The urethra is the tube that drains urine from the bladder. Cystoscopy is done using a thin, tube-shaped instrument with a light and camera at the end (cystoscope). The cystoscope may be hard or flexible, depending on the goal of the procedure. The cystoscope is inserted through the urethra, into the bladder. Cystoscopy may be recommended if you have: ??? Urinary tract infections that keep coming back. ??? Blood in the urine (hematuria). ??? An inability to control when you urinate (urinary incontinence) or an overactive bladder. ??? Unusual cells found in a urine sample. ??? A blockage in the urethra, such as a urinary stone. ??? Painful urination. ??? An abnormality in the bladder found during an intravenous pyelogram (IVP) or CT scan. Cystoscopy may also be done to remove a sample of tissue to be examined under a microscope (biopsy). Tell a health care provider about: ??? Any allergies you have. ??? All medicines you are taking, including vitamins, herbs, eye drops, creams, and lmlq-orq-afwlnhj medicines. ??? Any problems you or family members have had with anesthetic medicines. ??? Any blood disorders you have. ??? Any surgeries you have had. ??? Any medical conditions you have. ??? Whether you are or may be . What are the risks? Generally, this is a safe procedure. However, problems may occur, including: ??? Infection. ??? Bleeding. ??? Allergic reactions to medicines. ??? Damage to other structures or organs. What happens before the procedure? Medicines Ask your health care provider about: ??? Changing or stopping your regular medicines. This is especially important if you are taking diabetes medicines or blood thinners. ??? Taking medicines such as aspirin and ibuprofen. These medicines can thin your blood. Do not take these medicines unless your health care provider tells you to take them. ??? Taking tadu-pag-kphihpo medicines, vitamins, herbs, and supplements. Tests You may have an exam or testing, such as: ??? X-rays of the bladder, urethra, or kidneys. ??? CT scan of the abdomen or pelvis. ??? Urine tests to check for signs of infection. General instructions ??? Follow instructions from your health care provider about eating or drinking restrictions. ??? Ask your health care provider what steps will be taken to help prevent infection. These steps may include: ? Washing skin with a germ-killing soap. ? Taking antibiotic medicine. ??? Plan to have a responsible adult take you home from the hospital or clinic. What happens during the procedure? You will be given one or more of the following: ? A medicine to help you relax (sedative). ? A medicine to numb the area (local anesthetic). ??? The area around the opening of your urethra will be cleaned. ??? The cystoscope will be passed through your urethra into your bladder. ??? Germ-free (sterile) fluid will flow through the cystoscope to fill your bladder. The fluid will stretch your bladder so that your health care provider can clearly examine your bladder palmer. ??? Your doctor will look at the urethra and bladder. Your doctor may take a biopsy or remove stones. ??? The cystoscope will be removed, and your bladder will be emptied. The procedure may vary among health care providers and hospitals. What can I expect after the procedure? After the procedure, it is common to have: ??? Some soreness or pain in your abdomen and urethra. ??? Urinary symptoms. These include: ? Mild pain or burning when you urinate. Pain should stop within a few minutes after you urinate. This may last for up to 1 week. ? A small amount of blood in your urine for several days. ? Feeling like you need to urinate but producing only a small amount of urine. Follow these instructions at home: Medicines ??? Take vlpd-fzj-euttjwk and prescription medicines only as told by your health care provider. ??? If you were prescribed an antibiotic medicine, take it as told by your health care provider. Do not stop taking the antibiotic even if you start to feel better. General instructions ??? Return to your normal activities as told by your health care provider. Ask your health care provider what activities are safe for you. ??? If you were given a sedative during the procedure, it can affect you for several hours. Do not drive or operate machinery until your health care provider says that it is safe. ??? Watch for any blood in your urine. If the amount of blood in your urine increases, call your health care provider. ??? Follow instructions from your health care provider about eating or drinking restrictions. ??? If a tissue sample was removed for testing (biopsy) during your (more content not included)... [facility] 04-16-2025 History of Present illness Narrative Images from the original note were not included. Subjective Patient ID: Valentin Torre is a 69 y.o. male. Valentin presents for right su pain and swelling that has been present [...] Skin: Positive for wound (bruising of right su). Neurological: Negative. Hematological: Negative. Psychiatric/Behavioral: Negative. Objective Physical Exam Vitals reviewed. Exam conducted with a tabular typist present (Peter Emanuel MS 3). Constitutional: General: [...] seen today for pain in the right su/swollen foot.tingling. Diagnoses and all orders for this [...] injury and no underlying fracture was seen. Check EMG if no better. There really is no swelling right now but can get compression hose with mild pressure Pain of right lower leg As above. EMG if no better documented in this encounter [facility] 04-10-2025 Miscellaneous Notes I spoke with pt and tried scheduling him but you are booked out until the 06 of May. Is there somewhere where you'd like him to be put? Pt has been icing and elevating leg. I advised him to wrap it as well. Thank you. Put in at 4:45 p.m. on Tuesday Pt is scheduled. documented in this encounter [facility] 04-10-2025 Telephone encounter Note I spoke with pt and tried scheduling him but you are booked out until the 06 of May. Is there somewhere where you'd like him to be put? Pt has been icing and elevating leg. I advised him to wrap it as well. Thank you. [facility] 04-10-2025 Telephone encounter Note Put in at 4:45 p.m. on Tuesday [facility] 04-10-2025 Telephone encounter Note Pt is scheduled. [facility] 04-09-2025 History of Present illness Narrative Formatting of this note is different fro m the original. Patient: Valentin Torre : 1955 PCP: Sascha Sutton MD SUBJECTIVE This is a 69 y.o. [...] and has been using prescribed or recommended wrlm-jgs-fuddohl cream with positive improvement. Patient has history of SLE and rheumatoid arthritis. Allergies: Allergies Allergen Reactions Aspirin Buf(Ixklmj-Ubwhvc-Csp) Other Reaction(s): Other (See Comments), Unknown Abdominal [...] Resource Strain: Low Risk (04/14/2023) [facility] Overall Financial Resource Strain (CARDIA) Difficulty of Paying Living Expenses: Not hard at all Food Insecurity: No Food Insecurity (02/25/2025) [facility] Hunger Screening Within the past 12 months we worried whether our food would run out before we got money to buy more.: Never True Within the past 12 months the food we bought just didn't last and we didn't have money to get more.: Never True Transportation Needs: No Transportation Needs (04/14/2023) Received from [facility] PRAPARE - Transportation Lack of Transportation (Medical): No Lack of Transportation (Non-Medical): No Physical Activity: Inactive (05/01/2024) Received from [facility] Exercise Vital Sign Days of Exercise per Week: 0 days Minutes of Exercise per Session: 0 min Stress: No Stress Concern Present (04/14/2023) Received from [facility] [place] [employer] - Occupational Stress Questionnaire Feeling of Stress : Not at all Social Connections: Moderately Integrated (04/14/2023) Received from [facility] Social Connection and Isolation Panel [NHANES] Frequency of Communication with Friends and Family: Once a week Frequency of Social Gatherings with Friends and Family: Once a week Attends Yazidi Services: More than 4 times per year Active Member of Clubs or Organizations: Yes Attends Club or Organization Meetings: Never Marital Status: Intimate Partner Violence: Not on file Housing Stability: Low Risk (04/14/2023) Received from [facility] Housing Instability Are you worried or concerned [...] longer than right leg of a proximally tzh-dvwxsgu-tfoc Greatly diminished pain on palpation right heel [...] and thickness digits 1 through 10 Kali Conklin DPM documented in this encounter [facility] 03-20-2025 History of Present illness Narrative Formatting of this note is different fro m the original. Images from the original note were not included. CHIEF COMPLAINT REASON FOR VISIT : Follow up HPI: Valentin Torre is a 69 y.o. male who presents for a follow up. He states his tremors are worse. He is not sure if medication needs to be adjusted. He denies any tremors anywhere else. He states left hand is greater than the right. Left is way more often. He states his balance is still not good. He states he has fell three times this year. One in November, one in December where he fell down basement steps, and one in January. He has had some close calls. States he has had more headaches lately. He states more than 5 a month possibly more than 10. He states that he has pain right in the front of his head. States he did hit his head when he fell down the basement steps. No LOC. States when he fell his tremor got worse. He states he has Iliotibial band syndrome and Right trochanteric bursitis of right hip. He states the worst time for his tremors is when he is trying to do something. Patient does have issues with balance. States he is doing PT. States that he went to a store within the past few weeks after PT and fell. He is ambulating with a cane today. States he is having more when is driving. He states stress does not help. States he woke up during the night and had them. States that even when he is talking to someone he will get the tremors. Patient states he sleeps well. Denies any vivid dreams or hallucinations. He is wondering what he can take for his sinuses. CURRENT MEDICATIONS: ALLERGIES/DISCONTINUE MEDICATIONS Current Outpatient Medications Medication Instructions acetaminophen (Tylenol) 500 MG tablet Take by mouth benzonatate (Tessalon) 200 MG capsule Three times daily as needed for cough biotin 10 mg, Oral, 2 times daily budesonide (Rhinocort AQ) 32 MCG/ACT nasal spray 62,500 sprays colchicine 0.6 MG tablet folic acid (Folvite) 1 MG tablet folic acid 1 mg tablet hydroxychloroquine (Plaquenil) 200 MG tablet hydroxychloroquine 200 mg tablet TAKE 1 TABLET BY MOUTH TWICE A DAY leflunomide (Arava) 10 MG tablet leucovorin (Wellcovorin) 5 MG tablet Take by mouth. Take with a full glass of water. lisinopril-hydroCHLOROthiazide 20-12.5 MG tablet 1 tablet, Every morning meloxicam (Mobic) 15 MG tablet methotrexate (XATMEP) 2.5 mg Methotrexate Sodium (methotrexate PF) 50 MG/2ML syringe methylPREDNISolone (Medrol Dospak) 4 MG tablets Follow schedule on MEDROL PACK package instructions to be used as directed montelukast (Singulair) 10 MG tablet Take by mouth nabumetone (RELAFEN) 750 mg omeprazole (PriLOSEC) [address] capsule potassium bicarbonate (K-Lyte) 25 MEQ effervescent tablet Take by mouth prednisoLONE acetate (Pred-Forte) 1 % ophthalmic suspension primidone (MYSOLINE) 100 mg, Oral, Nightly pseudoephedrine-guaiFENesin ER (Mucinex D) 60-600 MG 12 hr tablet 1 tablet, Every 12 hours simvastatin (ZOCOR) 20 mg, Nightly tamsulosin (FLOMAX) 0.4 mg, Daily traMADol (Ultram) 50 MG tablet Take by mouth Allergies Allergen Reactions Aspirin Buf(Wtifoh-Qlbkoj-Kdt) Other Reaction(s): Other (See Comments), Unknown Abdominal [...] Father Hypertension Father Depression: Not at risk (02/25/2025) Received from [facility] PHQ-2 Total Score: 0 REVIEW OF SYMPTOMS: [...] Negative for difficulty urinating and urgency. Musculoskeletal: Positive for gait problem. Negative for arthralgias, back pain, myalgias, neck pain and neck stiffness. Neurological: Positive for tremors. Negative for weakness, light-headedness and numbness. Psychiatric/Behavioral: Negative for agitation, confusion and suicidal ideas. OBJECTIVE: 02/21/2025 9:17 AM 02/07/2025 10:07 AM 01/30/2025 4:47 PM Vitals BMI 32.84 kg/m2 32.84 kg/m2 32.84 kg/m2 BSA (m2) 2.17 m2 2.17 m2 2.17 m2 Systolic 126 Diastolic 78 Heart Rate 78 Resp 16 18 Height (in) 5' 8 5' 8 5' 8 Weight (lb) 216 216 216 Visit Report Report Report Report EXAM: Neurological [...] reflexes: Teja's absent. Ankle clonus absent. Coordination Asrkay-sh-vpws, rapid alternating movements and byzq-hy-uyfx normal bilaterally without dysmetria. Gait Normal casual, [...] Diagnoses and all orders for this visit: Piriformis syndrome of right side - dexAMETHasone (Decadron) 2 MG tablet; Take 1 tablet by mouth once daily for 7 days. Intention tremor Increase primidone 50 mg-Take 1 tablet (50 mg) by mouth Daily AND 3 tablets (150 mg) at bedtime Continue biotin 10 mg 1-2 tablets daily Continue thiamine 100 mg by mouth once daily I counseled the patient on the possible side effects and interactions of medications. Continue PT for improvement in lumbar pain, increase ROM, and improve function. Follow up 8-10 weeks. This note was scribed by LINA Reynoso acting under the direction of Whit Tyalor MD. The content has been reviewed and confirmed for accuracy by Whit Taylor MD documented in this encounter [facility] 03-04-2025 Telephone encounter Note Patient calls that tremors are worsening. He has scheduled appointment with Claudia on 03/20. I called the patient and left voicemail that he has upcoming appointment but until then increase primidone 50 mg 1/2 tab am and continue the 2 pills at bedtime. [facility] Work Phone: 03-04-2025 Miscellaneous Notes Patient calls that tremors are worsening. He has scheduled appointment with Claudia on 03/20. I called the patient and left voicemail that he has upcoming appointment but until then increase primidone 50 mg 1/2 tab am and continue the 2 pills at bedtime. documented in this encounter [facility] 02-25-2025 History of Present illness Narrative Images from the original note were not included. Subjective Patient ID: Valentin Torre is a 69 y.o. male. The patient is here today for discharge follow up from hospital. Transition of Care Med Rec completed? Yes Discharged medications: Medications have been reviewed and reconciled with the most recent facility discharge document. Valentin presents today for transition of care visit. He was in the hospital overnight to rule out heart attack. He went in with chest pain. It started when he bent over to fix his boot when he felt a sudden onset of sharp chest pain. He has point tenderness on the left side of his chest. He went to the hospital. It did slowly improve it now it just comes and goes. When it does hit it is sudden and sharp. Hurts more with movement and deep breathing. The following portions of the patient's history were reviewed and updated as appropriate: allergies, current medications, past family history, past medical history, past social history, past surgical history, problem list, and medication reconciliation was completed including current medication and post discharge medication. Review of Systems Constitutional: Negative. Respiratory: Negative. Cardiovascular: Positive for chest pain. Negative for leg swelling. Musculoskeletal: Negative. Neurological: Negative. Psychiatric/Behavioral: Negative. Objective Physical Exam Vitals reviewed. Exam conducted with a tabular typist present (Episcopalmichell Anders MS 3). Constitutional: General: He is not in acute distress. Appearance: Normal appearance. Cardiovascular: Rate and Rhythm: Normal rate and regular rhythm. Pulses: Normal pulses. Heart sounds: Normal heart sounds. No murmur heard. Pulmonary: Effort: Pulmonary effort is normal. No respiratory distress. Breath sounds: Normal breath sounds. No wheezing, rhonchi or rales. Chest: Chest wall: Deformity (rib subluxed) and tenderness present. No mass, lacerations, swelling, crepitus or edema. Abdominal: General: Bowel sounds are normal. Palpations: Abdomen is soft. Musculoskeletal: Thoracic back: Tenderness and bony tenderness present. Back: Comments: 2 segmental subluxations of upper lower thoracic vertebrae Neurological: General: No focal deficit present. Mental Status: He is alert and oriented to person, place, and time. Psychiatric: Attention and Perception: Attention normal. Mood and Affect: Mood and affect normal. Speech: Speech normal. Behavior: Behavior normal. Behavior is cooperative. Thought Content: Thought content normal. Cognition and Memory: Cognition normal. Judgment: Judgment normal. Assessment/Plan Valentin was seen today for tcm. Diagnoses and all orders for this visit: Other chest pain Likely musculoskeletal chest pain. Hospital records and test results reviewed. No sign of cardiac etiology. Thoracic region somatic dysfunction OMT to thoracic spine and 2 segmental subluxations corrected with HVLA technique. Patient reported near immediate relief of pain in the chest following manipulation. Essential hypertension Blood pressure at goal. Continue current regimen Other orders - omeprazole (PriLOSEC) 20 mg capsule; Take 1 capsule (20 mg total) by mouth in the morning. documented in this encounter [facility] 02-21-2025 History of Present illness Narrative Formatting of this note is different fro m the original. Patient: Valentin Torre : 1955 PCP: Sascha Sutton MD SUBJECTIVE This is a 69 y.o. male that presents today for follow up of suspected right EDL tendinitis with su splint. Is taking nsaids as well as using walking boot and ice with positive improvement. Patient rates pain a / Patient does have limb length discrepancy and orthotics Discussion of further PT in the past. Patient also presents today for follow-up of dry skin and fissures to feet and has been using prescribed or recommended imtw-kgi-ceobxwy cream with improvement. Patient has history of SLE and rheumatoid arthritis. Allergies: Allergies Allergen Reactions Aspirin Buf(Jcrtdf-Ivzrbu-Pvq) Other Reaction(s): Other (See Comments), Unknown Abdominal [...] tablet, Take by mouth, Disp: , Rfl: benzonatate (Tessalon) 200 MG capsule, Three times daily as needed for cough (Patient not taking: Reported on 12/19/2024), Disp: , Rfl: biotin 10 MG capsule, Take 1 capsule (10 mg) by mouth in the morning and 1 capsule (10 mg) before bedtime., Disp: 60 capsule, Rfl: 11 budesonide (Rhinocort AQ) 32 MCG/ACT nasal spray, 62,500 sprays, Disp: , Rfl: colchicine 0.6 MG tablet, , Disp: , Rfl: folic acid (Folvite) 1 MG tablet, folic [...] 50 MG/2ML syringe, , Disp: , Rfl: methylPREDNISolone (Medrol Dospak) 4 MG tablets, Follow schedule on MEDROL PACK package instructions to be used as directed, Disp: 21 tablet, Rfl: 0 montelukast (Singulair) 10 MG tablet, Take by [...] Rfl: primidone (Mysoline) 50 MG tablet, Take 2 tablets (100 mg) by mouth at bedtime, Disp: 60 tablet, Rfl: 11 pseudoephedrine-guaiFENesin ER (Mucinex D) 60-600 MG 12 hr tablet, Take 1 tablet by mouth every 12 (twelve) hours (Patient not taking: Reported on 12/19/2024), Disp: , Rfl: simvastatin (Zocor) 20 MG tablet, Take 20 [...] Resource Strain: Low Risk (04/14/2023) Received from [facility], [facility] Overall Financial Resource Strain (CARDIA) Difficulty of Paying Living Expenses: Not hard at all Food Insecurity: No Food Insecurity (01/25/2025) Received from [facility] Hunger Screening Within the past 12 months we worried whether our food would run out before we got money to buy more.: Never True Within the past 12 months the food we bought just didn't last and we didn't have money to get more.: Never True Transportation Needs: No Transportation Needs (04/14/2023) Received from [facility], [facility] PRAPARE - Transportation Lack of Transportation (Medical): No Lack of Transportation (Non-Medical): No Physical Activity: Inactive (05/01/2024) Received from [facility] Exercise Vital Sign Days of Exercise per Week: 0 days Minutes of Exercise per Session: 0 min Stress: No Stress Concern Present (04/14/2023) Received from [facility], [facility] [place] [employer] - Occupational Stress Questionnaire Feeling of Stress : Not at all Social Connections: Moderately Integrated (04/14/2023) [facility], [facility] Social Connection and Isolation Panel [NHANES] Frequency of Communication with Friends and Family: Once a week Frequency of Social Gatherings with Friends and Family: Once a week Attends Yazidi Services: More than 4 times per year Active Member of Clubs or Organizations: Yes Attends Club or Organization Meetings: Never Marital Status: Intimate Partner Violence: Not on file Housing Stability: Low Risk (04/14/2023) [facility], [facility] Housing Instability Are you worried or [...] longer than right leg of a proximally vtg-tolrrpd-kjjh Greatly diminished pain on palpation right heel fissure Positive pain on palpation of right lateral anterior [...] 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 Continue with orthotics . Patient to continue with oral anti - inflammatories as needed for pain and recommended OTC medications such as tylenol or Ibuprofen Recommended to apply ice to affected areas for 20 minutes, twice daily. Ice should not be applied directly to skin. Discontinue walking boot continue with physical therapy Kali Conklin DPM documented in this encounter [facility] 02-16-2025 Consult note Note Date/Time February 16, 2025 1:30pm [facility] [address] [place] [address] Cardiology Consult Note Signed Patient: Valentin Torre MR#: [id number] : 1955 Acct:[id number] Age/Sex: 69 / M Adm Date: 5 Loc: Room: 3B8807-7 Type: ADM INOo Attending Dr: Gabi Almanzar MD Copies to: Sascha Sutton,DO Rita Matt MD, [facility] Gabi Almanzar MD~ Cardiology HPI History of Present Illness Consult Date: 02/16/25 Reason for Consult: Chest pain HPI: Mr. Torre is a 69 year old male who is being seen at request of the hospitalist for evaluation of chest pain. Patient came with his who was present at thetime. His cardiac history is remarkable for cardiac catheterization in March Dr. Trujillo for atypical chest pain which revealed normal coronary arteries and normal ejection fraction. The patient had an episode of chest pain yesterday and had recurrent after he leaned forward as he was sitting on the chair with a twist to the left. He felt a sharp pain in the chest and he becameconcerned. The pain was reproducible with body movement and manipulation. He was not sure if this was a heart attack or not therefore he decided to come in. His cardiac enzymes were normal, EKG was normal, occasional PVCs were seen on his EKG including a couplet. Other labs were normal. He has remained symptoms free since admission but has continued to have reproducible pain in the chest wall. There has been no recent trauma. Patient has history of connective tissue disease and rheumatoid arthritis on medical therapy along with hypertension hyperlipidemia. He is non-smoker nondiabetic. He reports no recent symptoms of chest pain on exertion no dyspnea on exertion and no palpitations and no history of syncope or cardiac arrhythmias. The patient was reassured about his presentation and the absent workup so far. The fact that hehad a cardiac catheterization less than 2 years ago with normal coronary arteries indicated that there should be no reason for further investigations. Musculoskeletal chest pain is diagnosed and the patient can utilize NSAID and expect improvement within few days. Does not need cardiac follow-up. Review of Systems Review of Systems Review of systems: 11 point review of system essentially unremarkable [facility] Medical History Intention tremor Greater trochanteric bursitis of right hip Osteoarthritis of right hip Tremor of right hand Chronic pain Arthritis of facet joint of cervical spine Arthritis of lumbosacral spine Thyroid nodule pt reports new-supposed to see Dr. 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, cleft palate, perforated ear drums History of esophageal dilatation Rheumatoid arthritis Spinal stenosis, lumbar region with neurogenic claudication Spondylolisthesis Degenerative disc disease pt reports cervical Squamous cell carcinoma Excision lesion near both eyes Kidney stones Arthritis Connective tissue disease, undifferentiated Surgical History History of radiofrequency ablation (RFA) of nerve of lumbar spine History of colonoscopy History of carpal tunnel release of both wrists History of shoulder surgery right shoulder History of ear, nose, and throat (ENT) surgery right tympanoplasty w/graft Previous back surgery XLIF History of arthroplasty of left knee H/O knee surgery Athroscopy x3 right knee;athroscopy left knee x2; H/O shoulder surgery Family History Father Myocardial infarction Hypertension Mother Myocardial infarction Hypertension Brother Manic depression Hypertension Brother Diabetes Hypertension Social History Smoking Status: Former smoker Tobacco Type: cigarettes Substance Use Type: None Meds Medications and Allergies Allergies cephalexin (From Keflex) Allergy (Verified 02/15/25 09:47) Unknown Reaction Cephalosporins Allergy (Verified 02/15/25 09:47) Unknown Reaction Sulfa (Sulfonamide Antibiotics) Allergy (Verified 02/15/25 09:47) Rash calcium carbonate (From Bufferin) Adverse Reaction (Verified 02/15/25 09:47) Nausea magnesium (From Bufferin) Adverse Reaction (Verified 02/15/25 09:47) Nausea oxycodone Adverse Reaction (Verified 02/15/25 09:47) Hallucinating Home Medications folic acid 1 mg tablet 1 mg PO BID Supplement 04/25/18 [History Confirmed 02/15/25] hydroxychloroquine 200 mg tablet 200 mg PO BID UCTD/Lupus 04/25/18 [History Confirmed 02/15/25] leflunomide 10 mg tablet 10 mg PO QAM Rheumatoid arthritis 04/25/18 [History Confirmed 02/15/25] leucovorin calcium 5 mg tablet 5 mg PO QWEEK Anemia R/T methotrexate 04/25/18 [History Confirmed 02/15/25] montelukast 10 mg tablet 10 mg PO QPM Allergy symptoms 04/25/18 [History Confirmed 02/15/25] omeprazole 20 mg capsule,delayed release 40 mg PO QAM GERD 04/25/18 [History Confirmed 02/15/25] methotrexate sodium 25 mg/mL injection solution 25 mg subcut QWEEK Rheumatoid arthritis/UCTD 11/05/18 [History Confirmed 02/15/25] lisinopril 20 mg-hydrochlorothiazide 12.5 mg tablet 1 tab PO QAM HTN 05/12/19 [History Confirmed 02/15/25] simvastatin 20 mg tablet 20 mg PO QPM High cholesterol 07/19/19 [History Confirmed 02/15/25] tramadol 50 mg tablet 100 mg (2 x 50 mg) PO Q8H PRN Pain #0 tabs 07/26/19 [Rx Confirmed 02/15/25] acetaminophen 500 mg tablet 1,000 mg PO BID-TID PRN Pain 03/31/23 [History Confirmed 02/15/25] carboxymethylcellulose sodium 1 % eye liquid gel drops (Refresh Liquigel) 1 drp Eye-Both DAILY PRN dry eye(s) 03/31/23 [History Confirmed 02/15/25] fexofenadine-pseudoephedrine ER 180 mg-240 mg tablet,ext.release 24 hr (Seema-D 24 Hour) 1 tab PO DAILY PRN allergies 03/31/23 [History Confirmed 02/15/25] triamcinolone acetonide 55 mcg nasal spray aerosol (Nasal Allergy) 1 spray intranasal DAILY 03/31/23 [History Confirmed 02/15/25] aspirin 81 mg tablet,delayed release (Adult Low Dose Aspirin) 81 mg PO DAILY 04/02/24 [History Confirmed 02/15/25] potassium bicarbonate-citric acid 25 mEq effervescent tablet (Klor-Con/EF) 25 meq PO BID 04/02/24 [History Confirmed 02/15/25] prednisolone acetate 1 % eye drops,suspension (Pred Forte) 1 drp Eye-Right TID PRN iritis 04/02/24 [History Confirmed 02/15/25] tamsulosin 0.4 mg capsule (Flomax) 0.4 mg PO QPM 04/02/24 [History Confirmed 02/15/25] acetaminophen 500 mg tablet (Tylenol Extra Strength) 1,000 mg (2 x 500 mg) PO Q6HR PRN fever or pain #30 tabs 01/12/25 [Rx Confirmed 02/15/25] diclofenac sodium 1 % topical gel (Voltaren Arthritis Pain) 2 g topical QID #100grams 01/12/25 [Rx Confirmed 02/15/25] lidocaine 5 % topical patch (Lidoderm) 2 patch topical Q24H #30 ea 01/12/25 [Rx Confirmed 02/15/25] methylprednisolone 4 mg tablets in a dose pack (Medrol (Nicolas)) See Rx Instructions PO PER PKG DIR PRN pain 01/12/25 [History Confirmed 02/15/25] primidone 50 mg tablet 100 mg PO QHS 01/12/25 [History Confirmed 02/15/25] meloxicam 15 mg tablet See Rx Instructions .Route .COMPLEX #30 tabs 01/14/25 [Rx Confirmed 02/15/25] methotrexate sodium (PF) 50 mg solution for injection 50 mg .Route .weekly 02/15/25 [History Confirmed 02/15/25] omeprazole 40 mg capsule,delayed release 40 mg PO BID 02/15/25 [History Confirmed 02/15/25] Exam Physical Exam Vital Signs: Temp Pulse Resp BP Pulse Ox O2 Del Method 97.8 F 74 16 145/81 H 97 Room Air 02/16/25 07:42 02/16/25 07:42 02/16/25 07:42 02/16/25 07:42 02/16/25 07:42 02/16/25 07:42 Const General: cooperative, comfortable and no acute distress Nutritional Appearance: obese Orientation: alert, awake and oriented x3 HEENT Head: normal to inspection, normocephalic and atraumatic Ears: hearing grossly normal bilaterally Nose: external nose normal Face and sinus: normal facial exam Eyes Conjunctivae: conjunctivae normal Pupils: PERRL Neck Neck: normal visual inspection, trachea midline and supple Neck mass: No Thyroid: thyroid normal Carotids: normal carotid upstroke Resp Effort & Inspection: normal respiratory effort Auscultation: clear to auscultation bilaterally Cardio Jugular venous pressure: no JVD Palpation: normal PMI Rate: regular rate Rhythm: regular rhythm Heart Sounds: S1 normal and S2 normal GI Inspection: normal to inspection Palpation: soft and no hepatosplenomegaly Auscultation: normal bowel sounds Extrem General: no clubbing, cyanosis or edema Results - Cardiology Labs 02/16/25 06:06 02/16/25 06:06 Lab results: Cardiac Enzymes 02/16/25 Range/Units 06:06 AST 15 (13-39) U/L CBC 02/16/25 Range/Units 06:06 RBC 5.08 (3.90-5.60) x10E6/uL Hgb 16.0 (13.0-17.0) g/dL Hct 46.5 (38.8-50.0) % Plt Count 166 (150-450) x10E3/uL Neut # (Auto) 7.1 (1.8-7.7) x10E3/uL Lymph # (Auto) 1.0 (1.00-4.8) x10E3/uL [place] # (Auto) 0.9 H (0.0-0.8) x10E3/uL Eos # (Auto) 0.1 (0.0-0.45) x10E3/uL Baso # (Auto) 0.0 (0.0-0.2) x10E3/uL Comprehensive Metabolic Panel 02/16/25 Range/Units 06:06 Sodium 135 L (136-145) mmol/L Potassium 4.4 (3.5-5.1) mmol/L Chloride 106 (98-107) mmol/L Carbon Dioxide 20.6 L (21.0-31.0) mmol/L BUN 21 (7-25) mg/dL Creatinine 0.74 (0.70-1.30) mg/dL Glucose 85 (70-100) mg/dL Calcium 8.7 (8.6-10.3) mg/dL AST 15 (13-39) U/L ALT 21 (7-52) U/L Alkaline Phosphatase 64 (34-104) U/L Total Protein 6.3 L (6.4-8.9) gm/dL Albumin 4.1 (3.5-5.7) gm/dL Intake and Output 02/15/25 02/16/25 02/16/25 23:59 07:59 15:59 Intake Total 450 / 450 Output Total 300 / 425 Balance -300 / 575 450 / 450 Intake: Oral 450 / 450 Output: Urine 300 / 425 Other: # Unmeasured Voids 2 Weight 100.9 kg Date of Last Bowel Movement 02/15/25 Patient Weight 02/16/25 23:59 Weight 100.9 kg Lab 02/15/25 10:00 PT 12.0 INR 1.1 EKG Interpretations EKG Attestation EKG: I reviewed this ECG and interpreted as documented below: (Normal sinus rhythm with premature ventricular complexes including couplets) A&P - Cardiology (1) Atypical chest pain: Assessment/Problem Details: Normal cardiac workup with normal cardiac catheterization March 2023 Plan: No further cardiac workup discharged home. The pain is musculoskeletal Code(s): R07.89 - Other chest pain (2) Frequent PVCs: Assessment/Problem Details: Asymptomatic with no organic heart disease Plan: Continue to monitor Code(s): I49.3 - Ventricular premature depolarization (3) Essential hypertension: Plan: Continue lisinopril Code(s): I10 - Essential (primary) hypertension (4) Dyslipidemia: Plan: Continue statin Code(s): E78.5 - Hyperlipidemia, unspecified (5) Rheumatoid arthritis: Plan: Continue home medications Code(s): M06.9 - Rheumatoid arthritis, unspecified Documented By: Rita Matt MD, [facility] 5 1323 Signed By: <Electronically signed by MD AMA Matt> 02/16/[address] [place] [address] Work Phone: [phone] [place] [id number] Discharge Summary Signed Patient: Valentin Torre MR#: [id number] : 1955 Acct:[id number] Age/Sex: 69 / M Adm Date: 5 Loc: 3T Room: [address] [place] [address]: Gabi Almanzar MD Copies to: DO Gabi Strong MD~ Providers Date of Discharge: 02/16/25 Discharging Provider: Gabi Almanzar Primary Care Provider: Sascha Sutton Consults: 02/16/25 09:47 Consult to Cardiology Routine Comment: Consulting Provider: Rita Matt Reason For Exam: Chest pain Has Provider Been Notified: Yes Date of Notification: 02/16/25 Time of Notification: 09:56 Discharge Diagnosis (1) Atypical chest pain: (2) Frequent PVCs: (3) Essential hypertension: (4) Dyslipidemia: (5) Rheumatoid arthritis: Final Diagnosis Final Discharge Diagnosis: ABOVE Summary Hospital Course Hospital course: Patient is a 69 year old male with medical hx as listed below presented to ER due to chest pain. Ptstates that he was bending down to fix his boot for his R ankle then sat back up again and twisted himself when he fell substernal chest snap sharp pain nonradiating, it does get worse with movement and deep inspiration. Patient with no history of CAD, denies smoking or drinking alcohol, he doeshave history of undifferentiated connective tissue disease, he was told he has lupus as well. ER, patient presented hemodynamically stable, initial troponin within normal limit, EKG normal sinus rhythm with no obvious acute ischemic changes, decision was made to keep her for observation. Cardiologywas consulted and stated annabelle the fact that he had a cardiac catheterization less than 2 years ago with normal coronary arteries indicated that there should be no reason for further investigations. Musculoskeletal chest pain is diagnosed and the patient can utilize NSAID and expect improvementwithinfew days. Does not need cardiac follow-up. Patient will be discharged today after cardiac clearance. I will send him on naproxen 250 mg p.o. with meals for a course of 5 days with PPI. He understandsagrees with this plan of management Time Spent with Patient Time spent providing/coordinating discharge services (# min): 45 Discharge Plan Discharge Plan Patient Disposition: Home Activity: Ambulate as Tolerated Diet: Low-Fat and Low-Sodium Instructions: Know your Meds Prescriptions: New naproxen 250 mg tablet 250 mg PO BID PRN (Reason: pain) 3 Days Qty: 7 0RF Continued meloxicam 15 mg tablet See Rx Instructions .ROUTE .COMPLEX Qty: 30 0RF Dose Instruction: TAKE 1 TABLET BY MOUTH DAILY Rx Instructions: TAKE 1 TABLET BY MOUTH DAILY lisinopril-hydrochlorothiazide 20-12.5 mg Tablet 1 tab PO QAM Klor-Con/EF 25 mEq tablet, effervescent 25 meq PO BID tamsulosin [Flomax] 0.4 mg capsule 0.4 mg PO QPM Rx Instructions: administer 30 minutes after same meal each day until stone passes prednisolone acetate [Pred Forte] 1 % drops,suspension 1 drp Eye-Right TID PRN (Reason: iritis) aspirin [Adult Low Dose Aspirin] 81 mg tablet,delayed release (DR/EC) 81 mg PO DAILY leflunomide 10 mg tablet 10 mg PO QAM Patient Comments: TK 1 T PO QD leucovorin calcium 5 mg tablet 5 mg PO QWEEK Patient Comments: TK 1 T PO ONCE Q WEEK Rx Instructions: taken on sundays folic acid 1 mg tablet 1 mg PO BID montelukast 10 mg tablet 10 mg PO QPM Patient Comments: TK 1 T PO QD hydroxychloroquine 200 mg tablet 200 mg PO BID Patient Comments: TK 1 T PO BID methotrexate sodium 25 mg/mL solution 25 mg subcut QWEEK Patient Comments: INJECT 1 ML UNDER THE SKIN ONCE Q WEEK Rx Instructions: taken on saturdays simvastatin 20 mg Tablet 20 mg PO QPM tramadol 50 mg tablet 100 mg PO Q8H PRN (Reason: Pain) Qty: 0 0RF Patient Comments: TK 1 TO 2 TS PO TID acetaminophen 500 mg Tablet 1,000 mg PO BID-TID PRN (Reason: Pain) triamcinolone acetonide [Nasal Allergy] 55 mcg Aerosol,[place] 1 spray INTRANASAL DAILY carboxymethylcellulose sodium [Refresh Liquigel] 1 % Drops, Liquid Gel 1 drp Eye-Both DAILY PRN (Reason: dry eye(s)) fexofenadine-pseudoephedrine [Seema-D 24 Hour] 180-240 mg Tablet Extended Release 24 Hr 1 tab PO DAILY PRN (Reason: allergies) lidocaine [Lidoderm] 5 % adhesive patch,medicated 2 patch topical Q24H Qty: 30 0RF Rx Instructions: leave on most painful area for up to 12 hrs diclofenac sodium [Voltaren Arthritis Pain] 1 % gel 2 g topical QID Qty: 100 0RF Rx Instructions: apply to single elbow, wrist or hand; for hand includes palm/fingers/back of hand omeprazole 40 mg capsule,delayed release(DR/EC) 40 mg PO BID Rx Instructions: FreeTextSi capsule Orally bid; Note: Source Status: Taking; Provider: Anson Bravo ( ) methylprednisolone [Medrol (Nicolas)] 4 mg tablets,dose pack See Rx Instructions PO PER PKG DIR PRN (Reason: pain) Rx Instructions: orally per package directions PRN; PO PER PKG DIR primidone 50 mg tablet 100 mg PO QHS Discontinued omeprazole 20 mg capsule,delayed release(DR/EC) 40 mg PO QAM Patient Comments: TK 2 CS PO QD acetaminophen [Tylenol Extra Strength] 500 mg tablet 1,000 mg PO Q6HR PRN (Reason: fever or pain) Qty: 30 0RF methotrexate sodium (PF) 50 mg recon soln 50 mg .Route .weekly Continuity of Care Document Health Concerns: A [facility] screening has identified you as FRAIL or AT RISK FOR FRAILTY. This puts you at a higher risk for infection, illness, falls,and other injuries. Here are four ways to help you reduce your risk of frailty: 1. IDENTIFY EARLY SIGNS OF FRAILTY ? Discuss contributing factors and concerns with your doctor 2. BE ACTIVE ? Walking and light strengthening exercises will help reduce weakness 3. EAT WELL ? Aim for three healthy meals a day that are high in protein 4. THINKPOSITIVE ? Keep your mind active by being sociable and continuing to learn References: Stay Strong:Four Ways to Beat the Frailty Risk https://www.[facility].org/health/qnanqxre-unz-vizdqcivkc/st lt-mbvdqo-dqjx- pife-gr-oisf-nxp-rzpphon-goej Exam Physical Exam Vital Signs: Temp Pulse Resp BP Pulse Ox O2 Del Method 97.8 F 74 16 145/81 H 97 Room Air 02/16/25 07:42 02/16/25 07:42 02/16/25 07:42 02/16/25 07:42 02/16/25 07:42 02/16/25 07:42 Diagnostic Studies Completed and Pending Studies Labs on day of discharge: 02/16/25 06:06: Corrected WBC 9.1, Uncorrected WBC Count 9.1, RBC 5.08, Hgb 16.0, Hct 46.5, MCV 91.6, MCH 31.5, MCHC 34.4, RDW 15.4 H, Plt Count 166, MPV 8.0, Neut % (Auto) 78.4, Lymph % (Auto) 11.0,[place] % (Auto) 9.6, Eos % (Auto) 0.7, Baso % (Auto) 0.3, Nucleat RBC Rel Count 0.1, Neut # (Auto) 7.1, Lymph # (Auto) 1.0, [place] # (Auto) 0.9 H, Eos # (Auto) 0.1, Baso # (Auto) 0.0, PHA Creatinine Clear 103.16, Sodium 135 L, Potassium 4.4, Chloride 106, Carbon Dioxide 20.6 L, Anion Gap 12.8, BUN 21, Creatinine 0.74, Est GFR (CKD-EPI) > 60.0, Glucose 85, Calcium 8.7, Total Bilirubin 0.8, AST 15, ALT 21, Alkaline Phosphatase 64, Troponin I High Sens 10, Total Protein 6.3 L, Albumin 4.1, Globulin2.2, Albumin/Globulin Ratio 1.9 02/15/25 19:51: Troponin I High Sens 10 Documented By: Gabi Almanzar MD 02/16/25 1453 Signed By: 02/16/25 1501 [facility]03-29-2025 [place] [address] Cardiology Consult Note Signed Patient: Valentin Torre MR#: [id number] : 1955 Acct:[id number] Age/Sex: 69 / M Adm Date: 5 Loc: Room: [address] [place] [address] Type: ADM INOo Attending Dr: Gabi Almanzar MD Copies to: DO Rita Strong MD, [facility] Gabi Almanzar MD~ Cardiology HPI History of Present Illness Consult Date: 02/16/25 Reason for Consult: Chest pain HPI: Mr. Torre is a 69 year old male who is being seen at request of the hospitalist for evaluation of chest pain. Patient came with his who was present at thetime. His cardiac history is remarkable for cardiac catheterization in March Dr. Trujillo for atypical chest pain which revealed normal coronary arteries and normal ejection fraction. The patient had an episode of chest pain yesterday and had recurrent after he leaned forward as he was sitting on the chair with a twist to the left. Hefelt a sharp pain in the chest and he becameconcerned. The pain was reproducible with body movementand manipulation. He was not sure if this was a heart attack or not therefore he decided to come in. His cardiac enzymes were normal, EKG was normal, occasional PVCs were seen on his EKG including a couplet. Other labs were normal. He has remained symptoms free since admission but has continued to have reproducible pain in the chest wall. There has been no recent trauma. Patient has history of connective tissue disease and rheumatoid arthritis on medical therapy along with hypertension hyperlipidemia. He is non-smoker nondiabetic. He reports no recent symptoms of chest pain on exertion no dyspnea on exertion and no palpitations and no history of syncope or cardiac arrhythmias. The patient was reassured about his presentation and the absent workup so far. The fact that hehad a cardiac sloane terization less than 2 years ago with normal coronary arteries indicated that there should be no reason for further investigations. Musculoskeletal chest pain is diagnosed and the patient can utilizeNSAID and expect improvement within few days. Does not need cardiac follow-up. Review of Systems Review of Systems Review of systems: 11 point review of system essentially unremarkable [facility] Medical History Intention tremor Greater trochanteric bursitis of right hip Osteoarthritis of right hip Tremor of right hand Chronic pain Arthritis of facet joint of cervical spine Arthritis of lumbosacral spine Thyroid nodule pt reports new-supposed to see Dr. 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, cleft palate, perforated ear drums History of esophageal dilatation Rheumatoid arthritis Spinal stenosis, lumbar region with neurogenic claudication Spondylolisthesis Degenerative disc disease pt reports cervical Squamous cell carcinoma Excision lesion near both eyes Kidney stones Arthritis Connective tissue disease, undifferentiated Surgical History History of radiofrequency ablation (RFA) of nerve of lumbar spine History of colonoscopy History of carpal tunnel release of both wrists History of shoulder surgery right shoulder History of ear, nose, and throat (ENT) surgery right tympanoplasty w/graft Previous back surgery XLIF History of arthroplasty of left knee H/O knee surgery Athroscopy x3 right knee;athroscopy left knee x2; H/O shoulder surgery Family History Father Myocardial infarction Hypertension Mother Myocardial infarction Hypertension Brother Manic depression Hypertension Brother Diabetes Hypertension Social History Smoking Status: Former smoker Tobacco Type: cigarettes Substance Use Type: None Meds Medications and Allergies Allergies cephalexin (From Keflex) Allergy (Verified 02/15/25 09:47) Unknown Reaction Cephalosporins Allergy (Verified 02/15/25 09:47) Unknown Reaction Sulfa (Sulfonamide Antibiotics) Allergy (Verified 02/15/25 09:47) Rash calcium carbonate (From Bufferin) Adverse Reaction (Verified 02/15/25 09:47) Nausea magnesium (From Bufferin) Adverse Reaction (Verified 02/15/25 09:47) Nausea oxycodone Adverse Reaction (Verified 02/15/25 09:47) Hallucinating Home Medications folic acid 1 mg tablet 1 mg PO BID Supplement 04/25/18 [History Confirmed 02/15/25] hydroxychloroquine 200 mg tablet 200 mg PO BID UCTD/Lupus 04/25/18 [History Confirmed 02/15/25] leflunomide 10 mg tablet 10 mg PO QAM Rheumatoid arthritis 04/25/18 [History Confirmed 02/15/25] leucovorin calcium 5 mg tablet 5 mg PO QWEEK Anemia R/T methotrexate 04/25/18 [History Confirmed 02/15/25] montelukast 10 mg tablet 10 mg PO QPM Allergy symptoms 04/25/18 [History Confirmed 02/15/25] omeprazole 20 mg capsule,delayed release 40 mg PO QAM GERD 04/25/18 [History Confirmed 02/15/25] methotrexate sodium 25 mg/mL injection solution 25 mg subcut QWEEK Rheumatoid arthritis/UCTD 11/05/18 [History Confirmed 02/15/25] lisinopril 20 mg-hydrochlorothiazide 12.5 mg tablet 1 tab PO QAM HTN 05/12/19 [History Confirmed 02/15/25] simvastatin 20 mg tablet 20 mg PO QPM High cholesterol 07/19/19 [History Confirmed 02/15/25] tramadol 50 mg tablet 100 mg (2 x 50 mg) PO Q8H PRN Pain #0 tabs 07/26/19 [Rx Confirmed 02/15/25] acetaminophen 500 mg tablet 1,000 mg PO BID-TID PRN Pain 03/31/23 [History Confirmed 02/15/25] carboxymethylcellulose sodium 1 % eye liquid gel drops (Refresh Liquigel) 1 drp Eye-Both DAILY PRN dry eye(s) 03/31/23 [History Confirmed 02/15/25] fexofenadine-pseudoephedrine ER 180 mg-240 mg tablet,ext.release 24 hr (Seema- D 24 Hour) 1 tab PODAILY PRN allergies 03/31/23 [History Confirmed 02/15/25] triamcinolone acetonide 55 mcg nasal spray aerosol (Nasal Allergy) 1 spray intranasal DAILY 03/31/23 [History Confirmed 02/15/25] aspirin 81 mg tablet,delayed release (Adult Low Dose Aspirin) 81 mg PO DAILY 04/02/24 [History Confirmed 02/15/25] potassium bicarbonate-citric acid 25 mEq effervescent tablet (Klor-Con/EF) 25 meq PO BID 04/02/24 [History Confirmed 02/15/25] prednisolone acetate 1 % eye drops,suspension (Pred Forte) 1 drp Eye-Right TID PRN iritis 04/02/24 [History Confirmed 02/15/25] tamsulosin 0.4 mg capsule (Flomax) 0.4 mg PO QPM 04/02/24 [History Confirmed 02/15/25] acetaminophen 500 mg tablet (Tylenol Extra Strength) 1,000 mg (2 x 500 mg) PO Q6HR PRN fever or pain #30 tabs 01/12/25 [Rx Confirmed 02/15/25] diclofenac sodium 1 % topical gel (Voltaren Arthritis Pain) 2 g topical QID #100grams 01/12/25 [Rx Confirmed 02/15/25] lidocaine 5 % topical patch (Lidoderm) 2 patch topical Q24H #30 ea 01/12/25 [Rx Confirmed 02/15/25] methylprednisolone 4 mg tablets in a dose pack (Medrol (Nicolas)) See Rx Instructions PO PER PKG DIR PRN pain 01/12/25 [History Confirmed 02/15/25] primidone 50 mg tablet 100 mg PO QHS 01/12/25 [History Confirmed 02/15/25] meloxicam 15 mg tablet See Rx Instructions .Route .COMPLEX #30 tabs 01/14/25 [Rx Confirmed 02/15/25] methotrexate sodium (PF) 50 mg solution for injection 50 mg .Route .weekly 02/15/25 [History Confirmed 02/15/25] omeprazole 40 mg capsule,delayed release 40 mg PO BID 02/15/25 [History Confirmed 02/15/25] Exam Physical Exam Vital Signs: Temp Pulse Resp BP Pulse Ox O2 Del Method 97.8 F 74 16 145/81 H 97 Room Air 02/16/25 07:42 02/16/25 07:42 02/16/25 07:42 02/16/25 07:42 02/16/25 07:42 02/16/25 07:42 Const General: cooperative, comfortable and no acute distress Nutritional Appearance: obese Orientation: alert, awake and oriented x3 HEENT Head: normal to inspection, normocephalic and atraumatic Ears: hearing grossly normal bilaterally Nose: external nose normal Face and sinus: normal facial exam Eyes Conjunctivae: conjunctivae normal Pupils: PERRL Neck Neck: normal visual inspection, trachea midline and supple Neck mass: No Thyroid: thyroid normal Carotids: normal carotid upstroke Resp Effort & Inspection: normal respiratory effort Auscultation: clear to auscultation bilaterally Cardio Jugular venous pressure: no JVD Palpation: normal PMI Rate: regular rate Rhythm: regular rhythm Heart Sounds: S1 normal and S2 normal GI Inspection: normal to inspection Palpation: soft and no hepatosplenomegaly Auscultation: normal bowel sounds Extrem General: no clubbing, cyanosis or edema Results - Cardiology Labs 02/16/25 06:06 02/16/25 06:06 Lab results: Cardiac Enzymes 02/16/25 Range/Units 06:06 AST 15 (13-39) U/L CBC 02/16/25 Range/Units 06:06 RBC 5.08 (3.90-5.60) x10E6/uL Hgb 16.0 (13.0-17.0) g/dL Hct 46.5 (38.8-50.0) % Plt Count 166 (150-450) x10E3/uL Neut # (Auto) 7.1 (1.8-7.7) x10E3/uL Lymph # (Auto) 1.0 (1.00-4.8) x10E3/uL [place] # (Auto) 0.9 H (0.0-0.8) x10E3/uL Eos # (Auto) 0.1 (0.0-0.45) x10E3/uL Baso # (Auto) 0.0 (0.0-0.2) x10E3/uL Comprehensive Metabolic Panel 02/16/25 Range/Units 06:06 Sodium 135 L (136-145) mmol/L Potassium 4.4 (3.5-5.1) mmol/L Chloride 106 (98-107) mmol/L Carbon Dioxide 20.6 L (21.0-31.0) mmol/L BUN 21 (7-25) mg/dL Creatinine 0.74 (0.70-1.30) mg/dL Glucose 85 (70-100) mg/dL Calcium 8.7 (8.6-10.3) mg/dL AST 15 (13-39) U/L ALT 21 (7-52) U/L Alkaline Phosphatase 64 (34-104) U/L Total Protein 6.3 L (6.4-8.9) gm/dL Albumin 4.1 (3.5-5.7) gm/dL Intake and Output 02/15/25 02/16/25 02/16/25 23:59 07:59 15:59 Intake Total 450 / 450 Output Total 300 / 425 Balance -300 / 575 450 / 450 Intake: Oral 450 / 450 Output: Urine 300 / 425 Other: # Unmeasured Voids 2 Weight 100.9 kg Date of Last Bowel Movement 02/15/25 Patient Weight 02/16/25 23:59 Weight 100.9 kg Lab 02/15/25 10:00 PT 12.0 INR 1.1 EKG Interpretations EKG Attestation EKG: I reviewed this ECG and interpreted as documented below: (Normal sinus rhythm withpremature ventricular complexes including couplets) A&P - Cardiology (1) Atypical chest pain: Assessment/Problem Details: Normal cardiac workup with normal cardiac catheterization March 2023 Plan: No further cardiac workup discharged home. The pain is musculoskeletal Code(s): R07.89 - Other chest pain (2) Frequent PVCs: Assessment/Problem Details: Asymptomatic with no organic heart disease Plan: Continue to monitor Code(s): I49.3 - Ventricular premature depolarization (3) Essential hypertension: Plan: Continue lisinopril Code(s): I10 - Essential (primary) hypertension (4) Dyslipidemia: Plan: Continue statin Code(s): E78.5 - Hyperlipidemia, unspecified (5) Rheumatoid arthritis: Plan: Continue home medications Code(s): M06.9 - Rheumatoid arthritis, unspecified Documented By: Rita Matt MD, [facility] 5 1323 Signed By: 02/16/25 1330 [facility]03-28-2025 History and physical note Author Marley Dumont [facility] Note Date/Time February 15, 2025 3:4 9pm [facility] [address] [place] [address] Hospitalist H&P Signed Patient: Valentin Torre MR#: [id number] : 1955 Acct:[id number] Age/Sex: 69 / M Adm Date: Loc: Room: [address] [place] [address] Type: ADM INOo Attending Dr: Marley Dumont MD Copies to: Sascha Sutton,DO Marley Dumont MD~ HPI DATE OF EXAMINATION: 02/15/25 CHIEF COMPLAINT: chest pain HISTORY OF PRESENT ILLNESS: Patient is a 69 year old male with medical hx as listed below presented to ER due to chest pain. Pt states that he was bending down to fix his boot for his R ankle then sat back up again and twisted himself when he fell substernal chest snap sharp pain nonradiating, it does get worse with movement and deep inspiration. 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 ER, patient presented hemodynamically stable, initial troponin within normal limit, EKG normal sinus rhythm with no obvious acute ischemic changes, decision was made to keep her for observation. Review of Systems Review of Systems All other systems reviewed & are negative unless noted below or in HPI [facility] Medical History Intention tremor Greater trochanteric bursitis of right hip Osteoarthritis of right hip Tremor of right hand Chronic pain Arthritis of facet joint of cervical spine Arthritis of lumbosacral spine Thyroid nodule pt reports new-supposed to see Dr. 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, cleft palate, perforated ear drums History of esophageal dilatation Rheumatoid arthritis Spinal stenosis, lumbar region with neurogenic claudication Spondylolisthesis Degenerative disc disease pt reports cervical Squamous cell carcinoma Excision lesion near both eyes Kidney stones Arthritis Connective tissue disease, undifferentiated Surgical History History of radiofrequency ablation (RFA) of nerve of lumbar spine History of colonoscopy History of carpal tunnel release of both wrists History of shoulder surgery right shoulder History of ear, nose, and throat (ENT) surgery right tympanoplasty w/graft Previous back surgery XLIF History of arthroplasty of left knee H/O knee surgery Athroscopy x3 right knee;athroscopy left knee x2; H/O shoulder surgery Family History Father Myocardial infarction Hypertension Mother Myocardial infarction Hypertension Brother Manic depression Hypertension Brother Diabetes Hypertension Social History Smoking Status: Former smoker Tobacco Type: cigarettes Substance Use Type: None Meds Medications and Allergies Allergies cephalexin (From Keflex) Allergy (Verified 02/15/25 09:47) Unknown Reaction Cephalosporins Allergy (Verified 02/15/25 09:47) Unknown Reaction Sulfa (Sulfonamide Antibiotics) Allergy (Verified 02/15/25 09:47) Rash calcium carbonate (From Bufferin) Adverse Reaction (Verified 02/15/25 09:47) Nausea magnesium (From Bufferin) Adverse Reaction (Verified 02/15/25 09:47) Nausea oxycodone Adverse Reaction (Verified 02/15/25 09:47) Hallucinating Home Medications folic acid 1 mg tablet 1 mg PO BID Supplement 04/25/18 [History Confirmed 02/15/25] hydroxychloroquine 200 mg tablet 200 mg PO BID UCTD/Lupus 04/25/18 [History Confirmed 02/15/25] leflunomide 10 mg tablet 10 mg PO QAM Rheumatoid arthritis 04/25/18 [History Confirmed 02/15/25] leucovorin calcium 5 mg tablet 5 mg PO QWEEK Anemia R/T methotrexate 04/25/18 [History Confirmed 02/15/25] montelukast 10 mg tablet 10 mg PO QPM Allergy symptoms 04/25/18 [History Confirmed 02/15/25] omeprazole 20 mg capsule,delayed release 40 mg PO QAM GERD 04/25/18 [History Confirmed 02/15/25] methotrexate sodium 25 mg/mL injection solution 25 mg subcut QWEEK Rheumatoid arthritis/UCTD 11/05/18 [History Confirmed 02/15/25] lisinopril 20 mg-hydrochlorothiazide 12.5 mg tablet 1 tab PO QAM HTN 05/12/19 [History Confirmed 02/15/25] simvastatin 20 mg tablet 20 mg PO QPM High cholesterol 07/19/19 [History Confirmed 02/15/25] tramadol 50 mg tablet 100 mg (2 x 50 mg) PO Q8H PRN Pain #0 tabs 07/26/19 [Rx Confirmed 02/15/25] acetaminophen 500 mg tablet 1,000 mg PO BID-TID PRN Pain 03/31/23 [History Confirmed 02/15/25] carboxymethylcellulose sodium 1 % eye liquid gel drops (Refresh Liquigel) 1 drp Eye-Both DAILY PRN dry eye(s) 03/31/23 [History Confirmed 02/15/25] fexofenadine-pseudoephedrine ER 180 mg-240 mg tablet,ext.release 24 hr (Seema- D 24 Hour) 1 tab PO DAILY PRN allergies 03/31/23 [History Confirmed 02/15/25] triamcinolone acetonide 55 mcg nasal spray aerosol (Nasal Allergy) 1 spray intranasal DAILY 03/31/23 [History Confirmed 02/15/25] aspirin 81 mg tablet,delayed release (Adult Low Dose Aspirin) 81 mg PO DAILY 04/02/24 [History Confirmed 02/15/25] potassium bicarbonate-citric acid 25 mEq effervescent tablet (Klor-Con/EF) 25 meq PO BID 04/02/24 [History Confirmed 02/15/25] prednisolone acetate 1 % eye drops,suspension (Pred Forte) 1 drp Eye-Right TID PRN iritis 04/02/24 [History Confirmed 02/15/25] tamsulosin 0.4 mg capsule (Flomax) 0.4 mg PO QPM 04/02/24 [History Confirmed 02/15/25] acetaminophen 500 mg tablet (Tylenol Extra Strength) 1,000 mg (2 x 500 mg) PO Q6HR PRN fever or pain #30 tabs 01/12/25 [Rx Confirmed 02/15/25] diclofenac sodium 1 % topical gel (Voltaren Arthritis Pain) 2 g topical QID #100grams 01/12/25 [Rx Confirmed 02/15/25] lidocaine 5 % topical patch (Lidoderm) 2 patch topical Q24H #30 ea 01/12/25 [Rx Confirmed 02/15/25] methylprednisolone 4 mg tablets in a dose pack (Medrol (Nicolas)) See Rx Instructions PO PER PKG DIR PRN pain 01/12/25 [History Confirmed 02/15/25] primidone 50 mg tablet 100 mg PO QHS 01/12/25 [History Confirmed 02/15/25] meloxicam 15 mg tablet See Rx Instructions .Route .COMPLEX #30 tabs 01/14/25 [Rx Confirmed 02/15/25] Exam Physical Exam Vital Signs: Temp Pulse Resp BP Pulse Ox O2 Del Method 98 F 68 18 145/88 H 96 Room Air 02/15/25 15:01 02/15/25 15:01 02/15/25 15:01 02/15/25 15:01 02/15/25 15:01 02/15/25 15:01 Narrative: Const General: cooperative HEENT Normal oropharyngeal mucosa without any ulcers or exudates Eyes: Conjunctiva normal Pulmonary Auscultation: clear to auscultation , no crackles, no wheezes Cardiovascular Rate: normal rate Rhythm: regular rhythm Heart Sounds: S1 normal, S2 normal and no murmurs GI Inspection: non-distended Palpation: soft, not firm and nontender. No rigidity or rebound. Deferred Neuro General: alert, awake and oriented x3. No obvious new focal deficit Musculoskeletal: normal range of motion Extrem General: no cyanosis, no pedal edema Psych Appearance: appropriate affect. Grossly normal Results - Hospitalist H&P Lab Results Labs: Laboratory Last Values Corrected WBC 9.5 X10E3/uL (4.1-10.5) 02/15/25 10:00 Uncorrected WBC Count 9.5 x10E3/uL (4.1-10.5) 02/15/25 10:00 RBC 5.30 x10E6/uL (3.90-5.60) 02/15/25 10:00 Hgb 16.4 g/dL (13.0-17.0) 02/15/25 10:00 Hct 48.4 % (38.8-50.0) 02/15/25 10:00 MCV 91.3 fl (83.5-101) 02/15/25 10:00 MCH 31.0 pg (27.5-35.2) 02/15/25 10:00 MCHC 33.9 g/dL (32.5-35.6) 02/15/25 10:00 RDW 15.0 % (12.0-14.8) H 02/15/25 10:00 Plt Count 204 x10E3/uL (150-450) 02/15/25 10:00 MPV 7.9 fl (6.6-10.1) 02/15/25 10:00 Neut % (Auto) 74.9 % (.) 02/15/25 10:00 Lymph % (Auto) 10.3 % (.) 02/15/25 10:00 [place] % (Auto) 14.0 % (.) 02/15/25 10:00 Eos % (Auto) 0.5 % (.) 02/15/25 10:00 Baso % (Auto) 0.3 % (.) 02/15/25 10:00 Nucleat RBC Rel Count 0.1 /100 WBC (0-0.5) 02/15/25 10:00 Neut # (Auto) 7.1 x10E3/uL (1.8-7.7) 02/15/25 10:00 Lymph # (Auto) 1.0 x10E3/uL (1.00-4.8) 02/15/25 10:00 [place] # (Auto) 1.3 x10E3/uL (0.0-0.8) H 02/15/25 10:00 Eos # (Auto) 0.1 x10E3/uL (0.0-0.45) 02/15/25 10:00 Baso # (Auto) 0.0 x10E3/uL (0.0-0.2) 02/15/25 10:00 Monocyte Dist Width 17.25 % (0.00-20.00) 02/15/25 10:00 PT 12.0 Seconds (9.0-12.9) 02/15/25 10:00 INR 1.1 02/15/25 10:00 D-Dimer Quant (PE/DVT) 200 ng/mL (0-243) 02/15/25 10:00 PHA Creatinine Clear 96.68 02/15/25 10:00 Sodium 136 mmol/L (136-145) 02/15/25 10:00 Potassium 4.0 mmol/L (3.5-5.1) 02/15/25 10:00 Chloride 105 mmol/L (98-107) 02/15/25 10:00 Carbon Dioxide 22.4 mmol/L (21.0-31.0) 02/15/25 10:00 Anion Gap 12.6 mEq/L (6.0-15.0) 02/15/25 10:00 BUN 25 mg/dL (7-25) 02/15/25 10:00 Creatinine 0.83 mg/dL (0.70-1.30) 02/15/25 10:00 Est GFR (CKD-EPI) > 60.0 mL/Min 02/15/25 10:00 Glucose 105 mg/dL (70-100) H 02/15/25 10:00 Calcium 9.6 mg/dL (8.6-10.3) 02/15/25 10:00 Total Creatine Kinase 50 U/L (30-223) 02/15/25 10:00 Troponin I High Sens 8 ng/L (0-20) 02/15/25 11:30 B-Natriuretic Peptide 31.0 pg/mL (5-100) 02/15/25 10:00 Assessment & Plan Assessment/Plan (1) Atypical chest pain: Plan Atypical chest pain, likely musculoskeletal in nature low clinical concern for ACS -Initial troponin WNL, follow-up repeat troponin x2 -EKG on admission NSR with no acute ischemic changes -Aspirin daily -NG sublingual PRN as directed -Morphine for pain as directed as needed -Oxygen PRN to maintain sat >90% -Avoid NSAIDs except for aspirin -Start Flexeril TID -Monitor on telemetry Discussed with patient and at bedside, all questions answered IP vs OBS Justification Based on differential dx, clinical care plan, and risk of adverse events, if untreated, in my clinical judgement this patient requires an acute care setting as: OBSERVATION because of an expectation of an under 2 midnight stay. Estimated length of stay (# of days): 2 Documented By: Marley Dumont MD 02/15/25 15 32 Signed By: <Electronically signed by Marley Dumont MD> 02/15/25 1549 [facility] Work Phone: [phone] [place] [address] Hospitalist H&P Signed Patient: Valentin Torre MR#: [id number] : 1955 Acct:[id number] Age/Sex: 69 / M Adm Date: 5 Loc: Room: [address] [place] [address] Type: ADM INOo Attending Dr: Marley Dumont MD Copies to: DO Marley Strong MD~ HPI DATE OF EXAMINATION: 02/15/25 CHIEF COMPLAINT: chest pain HISTORY OF PRESENT ILLNESS: Patient is a 69 year old male with medical hx as listed below presented to ER due to chest pain. Ptstates that he was bending down to fix his boot for his R ankle then sat back up again and twisted himself when he fell substernal chest snap sharp pain nonradiating, it does get worse with movement and deep inspiration. Patient with no history of CAD, denies smoking or drinking alcohol, he doeshave history of undifferentiated connective tissue disease, he was told he has lupus as well. ER, patient presented hemodynamically stable, initial troponin within normal limit, EKG normal sinus rhythm with no obvious acute ischemic changes, decision was made to keep her for observation. Review of Systems Review of Systems All other systems reviewed & are negative unless noted below or in HPI [facility] Medical History Intention tremor Greater trochanteric bursitis of right hip Osteoarthritis of right hip Tremor of right hand Chronic pain Arthritis of facet joint of cervical spine Arthritis of lumbosacral spine Thyroid nodule pt reports new-supposed to see Dr. 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, cleft palate, perforated ear drums History of esophageal dilatation Rheumatoid arthritis Spinal stenosis, lumbar region with neurogenic claudication Spondylolisthesis Degenerative disc disease pt reports cervical Squamous cell carcinoma Excision lesion near both eyes Kidney stones Arthritis Connective tissue disease, undifferentiated Surgical History History of radiofrequency ablation (RFA) of nerve of lumbar spine History of colonoscopy History of carpal tunnel release of both wrists History of shoulder surgery right shoulder History of ear, nose, and throat (ENT) surgery right tympanoplasty w/graft Previous back surgery XLIF History of arthroplasty of left knee H/O knee surgery Athroscopy x3 right knee;athroscopy left knee x2; H/O shoulder surgery Family History Father Myocardial infarction Hypertension Mother Myocardial infarction Hypertension Brother Manic depression Hypertension Brother Diabetes Hypertension Social History Smoking Status: Former smoker Tobacco Type: cigarettes Substance Use Type: None Meds Medications and Allergies Allergies cephalexin (From Keflex) Allergy (Verified 02/15/25 09:47) Unknown Reaction Cephalosporins Allergy (Verified 02/15/25 09:47) Unknown Reaction Sulfa (Sulfonamide Antibiotics) Allergy (Verified 02/15/25 09:47) Rash calcium carbonate (From Bufferin) Adverse Reaction (Verified 02/15/25 09:47) Nausea magnesium (From Bufferin) Adverse Reaction (Verified 02/15/25 09:47) Nausea oxycodone Adverse Reaction (Verified 02/15/25 09:47) Hallucinating Home Medications folic acid 1 mg tablet 1 mg PO BID Supplement 04/25/18 [History Confirmed 02/15/25] hydroxychloroquine 200 mg tablet 200 mg PO BID UCTD/Lupus 04/25/18 [History Confirmed 02/15/25] leflunomide 10 mg tablet 10 mg PO QAM Rheumatoid arthritis 04/25/18 [History Confirmed 02/15/25] leucovorin calcium 5 mg tablet 5 mg PO QWEEK Anemia R/T methotrexate 04/25/18 [History Confirmed 02/15/25] montelukast 10 mg tablet 10 mg PO QPM Allergy symptoms 04/25/18 [History Confirmed 02/15/25] omeprazole 20 mg capsule,delayed release 40 mg PO QAM GERD 04/25/18 [History Confirmed 02/15/25] methotrexate sodium 25 mg/mL injection solution 25 mg subcut QWEEK Rheumatoid arthritis/UCTD 11/05/18 [History Confirmed 02/15/25] lisinopril 20 mg-hydrochlorothiazide 12.5 mg tablet 1 tab PO QAM HTN 05/12/19 [History Confirmed 02/15/25] simvastatin 20 mg tablet 20 mg PO QPM High cholesterol 07/19/19 [History Confirmed 02/15/25] tramadol 50 mg tablet 100 mg (2 x 50 mg) PO Q8H PRN Pain #0 tabs 07/26/19 [Rx Confirmed 02/15/25] acetaminophen 500 mg tablet 1,000 mg PO BID-TID PRN Pain 03/31/23 [History Confirmed 02/15/25] carboxymethylcellulose sodium 1 % eye liquid gel drops (Refresh Liquigel) 1 drp Eye-Both DAILY PRN dry eye(s) 03/31/23 [History Confirmed 02/15/25] fexofenadine-pseudoephedrine ER 180 mg-240 mg tablet,ext.release 24 hr (Seema- D 24 Hour) 1 tab PODAILY PRN allergies 03/31/23 [History Confirmed 02/15/25] triamcinolone acetonide 55 mcg nasal spray aerosol (Nasal Allergy) 1 spray intranasal DAILY 03/31/23 [History Confirmed 02/15/25] aspirin 81 mg tablet,delayed release (Adult Low Dose Aspirin) 81 mg PO DAILY 04/02/24 [History Confirmed 02/15/25] potassium bicarbonate-citric acid 25 mEq effervescent tablet (Klor-Con/EF) 25 meq PO BID 04/02/24 [History Confirmed 02/15/25] prednisolone acetate 1 % eye drops,suspension (Pred Forte) 1 drp Eye-Right TID PRN iritis 04/02/24 [History Confirmed 02/15/25] tamsulosin 0.4 mg capsule (Flomax) 0.4 mg PO QPM 04/02/24 [History Confirmed 02/15/25] acetaminophen 500 mg tablet (Tylenol Extra Strength) 1,000 mg (2 x 500 mg) PO Q6HR PRN fever or pain #30 tabs 01/12/25 [Rx Confirmed 02/15/25] diclofenac sodium 1 % topical gel (Voltaren Arthritis Pain) 2 g topical QID #100grams 01/12/25 [Rx Confirmed 02/15/25] lidocaine 5 % topical patch (Lidoderm) 2 patch topical Q24H #30 ea 01/12/25 [Rx Confirmed 02/15/25] methylprednisolone 4 mg tablets in a dose pack (Medrol (Nicolas)) See Rx Instructions PO PER PKG DIR PRN pain 01/12/25 [History Confirmed 02/15/25] primidone 50 mg tablet 100 mg PO QHS 01/12/25 [History Confirmed 02/15/25] meloxicam 15 mg tablet See Rx Instructions .Route .COMPLEX #30 tabs 01/14/25 [Rx Confirmed 02/15/25] Exam Physical Exam Vital Signs: Temp Pulse Resp BP Pulse Ox O2 Del Method 98 F 68 18 145/88 H 96 Room Air 02/15/25 15:01 02/15/25 15:01 02/15/25 15:01 02/15/25 15:01 02/15/25 15:01 02/15/25 15:01 Narrative: Const General: cooperative HEENT Normal oropharyngeal mucosa without any ulcers or exudates Eyes: Conjunctiva normal Pulmonary Auscultation: clear to auscultation , no crackles, no wheezes Cardiovascular Rate: normal rate Rhythm: regular rhythm Heart Sounds: S1 normal, S2 normal and no murmurs GI Inspection: non-distended Palpation: soft, not firm and nontender. No rigidity or rebound. Deferred Neuro General: alert, awake and oriented x3. No obvious new focal deficit Musculoskeletal: normal range of motion Extrem General: no cyanosis, no pedal edema Psych Appearance: appropriate affect. Grossly normal Results - Hospitalist H&P Lab Results Labs: Laboratory Last Values Corrected WBC 9.5 X10E3/uL (4.1-10.5) 02/15/25 10:00 Uncorrected WBC Count 9.5 x10E3/uL (4.1-10.5) 02/15/25 10:00 RBC 5.30 x10E6/uL (3.90-5.60) 02/15/25 10:00 Hgb 16.4 g/dL (13.0-17.0) 02/15/25 10:00 Hct 48.4 % (38.8-50.0) 02/15/25 10:00 MCV 91.3 fl (83.5-101) 02/15/25 10:00 MCH 31.0 pg (27.5-35.2) 02/15/25 10:00 MCHC 33.9 g/dL (32.5-35.6) 02/15/25 10:00 RDW 15.0 % (12.0-14.8) H 02/15/25 10:00 Plt Count 204 x10E3/uL (150-450) 02/15/25 10:00 MPV 7.9 fl (6.6-10.1) 02/15/25 10:00 Neut % (Auto) 74.9 % (.) 02/15/25 10:00 Lymph % (Auto) 10.3 % (.) 02/15/25 10:00 [place] % (Auto) 14.0 % (.) 02/15/25 10:00 Eos % (Auto) 0.5 % (.) 02/15/25 10:00 Baso % (Auto) 0.3 % (.) 02/15/25 10:00 Nucleat RBC Rel Count 0.1 /100 WBC (0-0.5) 02/15/25 10:00 Neut # (Auto) 7.1 x10E3/uL (1.8-7.7) 02/15/25 10:00 Lymph # (Auto) 1.0 x10E3/uL (1.00-4.8) 02/15/25 10:00 [place] # (Auto) 1.3 x10E3/uL (0.0-0.8) H 02/15/25 10:00 Eos # (Auto) 0.1 x10E3/uL (0.0-0.45) 02/15/25 10:00 Baso # (Auto) 0.0 x10E3/uL (0.0-0.2) 02/15/25 10:00 Monocyte Dist Width 17.25 % (0.00-20.00) 02/15/25 10:00 PT 12.0 Seconds (9.0-12.9) 02/15/25 10:00 INR 1.1 02/15/25 10:00 D-Dimer Quant (PE/DVT) 200 ng/mL (0-243) 02/15/25 10:00 PHA Creatinine Clear 96.68 02/15/25 10:00 Sodium 136 mmol/L (136-145) 02/15/25 10:00 Potassium 4.0 mmol/L (3.5-5.1) 02/15/25 10:00 Chloride 105 mmol/L (98-107) 02/15/25 10:00 Carbon Dioxide 22.4 mmol/L (21.0-31.0) 02/15/25 10:00 Anion Gap 12.6 mEq/L (6.0-15.0) 02/15/25 10:00 BUN 25 mg/dL (7-25) 02/15/25 10:00 Creatinine 0.83 mg/dL (0.70-1.30) 02/15/25 10:00 Est GFR (CKD-EPI) > 60.0 mL/Min 02/15/25 10:00 Glucose 105 mg/dL (70-100) H 02/15/25 10:00 Calcium 9.6 mg/dL (8.6-10.3) 02/15/25 10:00 Total Creatine Kinase 50 U/L (30-223) 02/15/25 10:00 Troponin I High Sens 8 ng/L (0-20) 02/15/25 11:30 B-Natriuretic Peptide 31.0 pg/mL (5-100) 02/15/25 10:00 Assessment & Plan Assessment/Plan (1) Atypical chest pain: Plan Atypical chest pain, likely musculoskeletal in nature low clinical concern for ACS -Initial troponin WNL, follow-up repeat troponin x2 -EKG on admission NSR with no acute ischemic changes -Aspirin daily -NG sublingual PRN as directed -Morphine for pain as directed as needed -Oxygen PRN to maintain sat >90% -Avoid NSAIDs except for aspirin -Start Flexeril TID -Monitor on telemetry Discussed with patient and at bedside, all questions answered IP vs OBS Justification Based on differential dx, clinical care plan, and risk of adverse events, if untreated, in my clinical judgement this patient requires an acute care setting as: OBSERVATION because of an expectation of an under 2 midnight stay. Estimated length of stay (# of days): 2 Documented By: Marley Dumont MD 02/15/25 15 32 Signed By: 02/15/25 [id number] [facility]03-21-2025 Evaluation note* Diagnosis Onset Date Resolution Status Admit Date [...] 2025 7:52am Chronic pain acute February 21, 7:52am Osteoarthritis of right hip acute February [...] knee acute April 10, 2025 9 :30am [facility] Work Phone: 1(359) 681-739703-20-2025 History of Present illness Narrative* Kali Conklin DPM - 02/07/2025 10:00 AM EDT Patient: Valentin Torre : 1955 PCP: Sascha Sutton MD SUBJECTIVE This is a 69 y.o. male that presents today for follow up of suspected right EDL tendinitis with su splint. Is taking a Medrol pack as well as using walking boot and ice with positive improvement. Patient rates pain a 3/10 Patient does have limb length discrepancy and orthotics Patient also presents today for follow-up of dry skin and fissures to feet and has been using prescribed or recommended [id number] cream with improvement. Patient has history of SLE and rheumatoid arthritis. Allergies: Allergies Allergen Reactions Aspirin Buf([id number]) Other Reaction(s): Other (See Comments), Unknown Abdominal [...] tablet, Take by mouth, Disp: , Rfl: benzonatate (Tessalon) 200 MG capsule, Three times daily as needed for cough (Patient not taking: Reported on 12/19/2024), Disp: , Rfl: biotin 10 MG capsule, Take 1 capsule (10 mg) by mouth in the morning and 1 capsule (10 mg) before bedtime., Disp: 60 capsule, Rfl: 11 budesonide (Rhinocort AQ) 32 MCG/ACT nasal spray, 62,500 sprays, Disp: , Rfl: colchicine 0.6 MG tablet, , Disp: , Rfl: folic acid (Folvite) 1 MG tablet, folic [...] 50 MG/2ML syringe, , Disp: , Rfl: methylPREDNISolone (Medrol Dospak) 4 MG tablets, Follow schedule on MEDROL PACK package instructions to be used as directed, Disp: 21 tablet, Rfl: 0 montelukast (Singulair) 10 MG tablet, Take by [...] Rfl: primidone (Mysoline) 50 MG tablet, Take 2 tablets (100 mg) by mouth at bedtime, Disp: 60 tablet, Rfl: 11 pseudoephedrine-guaiFENesin ER (Mucinex D) 60-600 MG 12 hr tablet, Take 1 tablet by mouth every 12 (twelve) hours (Patient not taking: Reported on 12/19/2024), Disp: , Rfl: simvastatin (Zocor) 20 MG tablet, Take 20 mg by mouth at bedtime, Disp: , Rfl: tamsulosin (Flomax) 0.4 MG 24 hr capsule, Take 0.4 mg by mouth Daily, Disp: , Rfl: traMADol (Ultram) 50 MG tablet, Take by mouth, Disp: , Rfl: urea (Carmol) 40 % cream, Apply 1 application topically in the morning and 1 application before bedtime., Disp: 85 g, Rfl: 1 Social History: Social History Socioeconomic History Marital [...] Resource Strain: Low Risk (04/14/2023) Received from [facility] Overall Financial Resource Strain (CARDIA) Difficulty of Paying Living Expenses: Not hard at all Food Insecurity: No Food Insecurity (01/25/2025) Received from [facility] Hunger Screening Within the past 12 months we worried whether our food would run out before we got money to buy more.: Never True Within the past 12 months the food we bought just didn't last and we didn't have money to get more.: Never True Transportation Needs: No Transportation Needs (04/14/2023) Received from [facility], [facility] PRAPARE - Transportation Lack of Transportation (Medical): No Lack of Transportation (Non-Medical): No Physical Activity: Inactive (05/01/2024) Received from [facility] Exercise Vital Sign Days of Exercise per Week: 0 days Minutes of Exercise per Session: 0 min Stress: No Stress Concern Present (04/14/2023) Received from [facility], [facility] [place] of Occupational Health - Occupational Stress Questionnaire Feeling of Stress : Not at all Social Connections: Moderately Integrated (04/14/2023) Received from [facility], [facility] Social Connection and Isolation Panel [NHANES] Frequency of Communication with Friends and Family: Once a week Frequency of Social Gatherings with Friends and Family: Once a week Attends Yazidi Services: More than 4 times per year Active Member of Clubs or Organizations: Yes Attends Club or Organization Meetings: Never Marital Status: Intimate Partner Violence: Not on file Housing Stability: Low Risk (04/14/2023) Received from [facility], [facility] Housing Instability Are you worried or [...] longer than right leg of a proximally efv-gzybqde-qfrr Greatly diminished pain on palpation right heel fissure Positive pain on palpation of right lateral anterior su along tibial crest and extends along the EDL tendon complex to dorsum of his foot with pain with resisted dorsiflexion of foot and ankle on the right ASSESSMENT 1. Xerosis cutis 2. Tenosynovitis of right lower leg 3. Su splint, right, initial encounter 4. Contracture of right ankle PLAN Pt encouraged to continue with hydrating creams to feet with offer for medication and/or prescription refill. Continue with orthotics . Patient to continue with oral anti - inflammatories as needed for pain and recommended OTC medications such as tylenol or Ibuprofen Recommended to apply ice to affected areas for 20 minutes, twice daily. Ice should not be applied directly to skin. continue With walking boot Discussed possible physical therapy in the future Kali Conklin DPM documented in this encounterHawthorn Children's Psychiatric [id number] History of Present illness Narrative* Kali Conklin DPM - 01/30/2025 4:40 PM EDT Patient: Valentin Torre : 1955 PCP: Sascha Sutton MD SUBJECTIVE This is a 69 y.o. male that presents today with a CC of aches and pains above feet and arch regionsand had orthotics in the past with some improvement but are old and unable to wear at this time. [facility] of some lower hip pain and states he has a limb length discrepancy and presents today for possible orthotic fitting for LLD. Patient Presents today wearing orthotics for the past week Patient also presents today for follow-up of dry skin and fissures to feet and has been using prescribed or recommended bmiq-abo-brcoqml cream with improvement. Patient presents today with with complaints of right anterior su plain has been in physical therapy for it recent history of falling and weakness to his upper limb girdle right thigh area. He states he was doing extension exercises and pain along the su region that extends into his foot ontop of his foot to his toes. States pain up to an 8/10 at this time and pain with 1st steps in the morning. Patient has history of SLE and rheumatoid arthritis. Allergies: Allergies Allergen Reactions Aspirin Buf(Yyjfkc-Gpcyhl-Mbr) Other Reaction(s): Other (See Comments), Unknown Abdominal [...] tablet, Take by mouth, Disp: , Rfl: benzonatate (Tessalon) 200 MG capsule, Three times daily as needed for cough (Patient not taking: Reported on 12/19/2024), Disp: , Rfl: biotin 10 MG capsule, Take 1 capsule (10 mg) by mouth in the morning and 1 capsule (10 mg) before bedtime., Disp: 60 capsule, Rfl: 11 budesonide (Rhinocort AQ) 32 MCG/ACT nasal spray, 62,500 sprays, Disp: , Rfl: colchicine 0.6 MG tablet, , Disp: , Rfl: folic acid (Folvite) 1 MG tablet, folic [...] 50 MG/2ML syringe, , Disp: , Rfl: methylPREDNISolone (Medrol) 4 MG tablet, Take 4 mg by mouth in the morning. As needed only. (Patient not taking: Reported on 12/19/2024), Disp: , Rfl: montelukast (Singulair) 10 MG [...] Rfl: primidone (Mysoline) 50 MG tablet, Take 2 tablets (100 mg) by mouth at bedtime, Disp: 60 tablet, Rfl: 11 pseudoephedrine-guaiFENesin ER (Mucinex D) 60-600 MG 12 hr tablet, Take 1 tablet by mouth every 12 (twelve) hours (Patient not taking: Reported on 12/19/2024), Disp: , Rfl: simvastatin (Zocor) 20 MG tablet, Take 20 mg by mouth at bedtime, Disp: , Rfl: tamsulosin (Flomax) 0.4 MG 24 hr capsule, Take 0.4 mg by mouth Daily, Disp: , Rfl: traMADol (Ultram) 50 MG tablet, Take by mouth, Disp: , Rfl: urea (Carmol) 40 % cream, Apply 1 application topically in the morning and 1 application before bedtime., Disp: 85 g, Rfl: 1 Social History: Social History Socioeconomic History Marital [...] Resource Strain: Low Risk (04/14/2023) Received from [facility], [facility] Overall Financial Resource Strain (CARDIA) Difficulty of Paying Living Expenses: Not hard at all Food Insecurity: No Food Insecurity (01/25/2025) Received from [facility] Hunger Screening Within the past 12 months we worried whether our food would run out before we got money to buy more.: Never True Within the past 12 months the food we bought just didn't last and we didn't have money to get more.: Never True Transportation Needs: No Transportation Needs (04/14/2023) [facility] - Transportation Lack of Transportation (Medical): No Lack of Transportation (Non-Medical): No Physical Activity: Inactive (05/01/2024) Received from [facility] Exercise Vital Sign Days of Exercise per Week: 0 days Minutes of Exercise per Session: 0 min Stress: No Stress Concern Present (04/14/2023) [facility] [place] of Occupational Health - Occupational Stress Questionnaire Feeling of Stress : Not at all Social Connections: Moderately Integrated (04/14/2023) [facility], [facility] Social Connection and Isolation Panel [NHANES] Frequency of Communication with Friends and Family: Once a week Frequency of Social Gatherings with Friends and Family: Once a week Attends Yazidi Services: More than 4 times per year Active Member of Clubs or Organizations: Yes Attends Club or Organization Meetings: Never Marital Status: Intimate Partner Violence: Not on file Housing Stability: Low Risk (04/14/2023) [facility], [facility] Housing Instability Are you worried or [...] longer than right leg of a proximally vli-wtyeekj-ufdo Greatly diminished pain on palpation right heel fissure Positive palpation of right lateral anterior su along tibial crest and extends along the EDL tendon complex to dorsum of his foot with pain with resisted dorsiflexion of foot and ankle on the right ASSESSMENT 1. 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 Xerosis cutis 3. Tenosynovitis of right lower leg 4. Su splint, right, initial encounter 5. Contracture of right ankle PLAN Pt encouraged to continue with hydrating creams to feet with offer for medication and/or prescription refill. Continue with orthotics . Prescription today for Medrol Dosepak Recommended to apply ice to affected areas for 20 minutes, twice daily. Ice should not be applied directly to skin. Pt dispensed pneumatic CAM walker (L4361) today to maintain 90 degree foot to ankle position. Pt informed to only remove walker when at rest or bathing. ABN signed and in chart for device if warranted. The boot was assembled and adjusted liner and straps and pneumatically inflated for proper customfitting by Kali Conklin DPM and staff. A verbal order was given for dispensing of device. The patient is ambulatory and may benefit functionally from this device. It may be used for the following conditions as noted per medical diagnosis. Kali Conklin DPM documented in this encounterHawthorn Children's Psychiatric [id number] History of Present illness Narrative* Sascha Sutton, DO - 01/29/2025 2:00 PM EDT Subjective Patient ID: Valentin Torre is a 69 y.o. male. Jeffry presents today to the office for recheck of another fall. States he was going to use the bathroom at 1:00 a.m. in the morning and on the way back his right leg gave out and he fell and hit his right hip and elbow. He could not get up by himself so he called for his who came and helped him get up. He was using his cane at the time. She has since found a walker for him. He notes that he gets dizzy when he bends over. This has happened several times. His blood pressure is okay when theycheck it. He denies vertigo. He was seeing ortho and had a hip bursitis and was getting physical therapy for that. When he told them at therapy that he fell they worked on his gait and he does have home exercises to do. He usually does them. He sees Neurology and they are managing a tremor. They recently increased his Mysoline to 2 a day. He is also having left-sided neck pain. This started afterhis fall down the basement steps. He did go to the emergency room for that and had a CT scan of hishead and neck which did not show any fractures. He still has pain on the left side. He has been using heat on his right hip which is actually more of his right buttock. They follow up with ortho nextweek and with the neurologist next month. He also thinks it his patch on his right eardrum has come out. The abrasion on his right lower leg is getting better. The redness is much better. He has to let the right leg dangle off the bed at night and that helps with the pain. He saw the green ware caster last week and was told that he had arthritis in his right foot. Dizziness Associated symptoms include headaches and weakness. Headache Fall Associated symptoms include headaches. The following portions of the patient's history were reviewed and updated as appropriate: allergies, current medications, past family history, past medical history, past social history, past surgicalhistory, problem list, and medication reconciliation was completed including current medication andpost discharge medication. Review of Systems Constitutional: Negative. Respiratory: Negative. Cardiovascular: Negative. Gastrointestinal: Negative. Genitourinary: Negative. Neurological: Positive for dizziness, tremors, weakness and headaches. Objective Physical Exam Constitutional: General: He is not in acute distress. Appearance: He is not ill-appearing. HENT: Head: Normocephalic. Right Ear: Tympanic membrane is perforated (There is a whole in his ear drum but unclear if the patch is retracted over it; unable to do a tympanogram). Cardiovascular: Pulses: Dorsalis pedis pulses are 2+ on the right side. Posterior tibial pulses are 1+ on the right side. Musculoskeletal: Lumbar back: Positive right straight leg raise test. Negative left straight leg raise test. Right lower leg: No edema. Left lower leg: No edema. Neurological: General: No focal deficit present. Mental Status: He is alert and oriented to person, place, and time. Cranial Nerves: Cranial nerves 2-12 are intact. Sensory: Sensory deficit (decreased LLE) present. Motor: Weakness and tremor present. Gait: Gait abnormal. Deep Tendon Reflexes: Reflex Scores: Patellar reflexes are 3+ on the right side and 2+ on the left side. Achilles reflexes are 1+ on the right side and 1+ on the left side. Psychiatric: Attention and Perception: Attention normal. Mood and Affect: Mood and affect normal. Speech: Speech normal. Behavior: Behavior normal. Behavior is cooperative. Thought Content: Thought content normal. Cognition and Memory: Cognition normal. Judgment: Judgment normal. Assessment/Plan Valentin was seen today for dizziness, headache and fall. Diagnoses and all orders for this visit: Right leg weakness Etiology unclear but concerned about a neuropathy possibly lumbar stenosis. Recommend that he follow up with Neurology. He has an appointment next month but he should call to see if he can get in sooner or put on the cancellation list. No urinary or bowel incontinence at this time. Fall, initial encounter We did discuss resuming physical therapy but he just finished and felt that they worked on his gait. He will do home exercises. Lumbosacral stenosis with neurogenic claudication May need further evaluation. Defer to neurology and neurosurgery. Perforation of right tympanic membrane Recommend follow-up with ENT. documented in this encounterF[facility]03[facility] History of Present illness Narrative* Sascha Teagan DO Herman - 01/25/2025 11:30 AM EST Subjective Patient ID: Valentin Torre is a 69 y.o. male. Valentin Torre is a 69 y.o. male presenting today for ED follow up visit. He reports two total falls. The first fall was on a flat surface a month ago. He had no immediate issues after this fall and did not seek medical tx. His most recent fall occurred a few weeks ago while walking in his basementstairs. His feet slipped out from under him and hit his head. He did not lose consciousness. He first went to urgent care but was sent to the ED at [facility] for further evaluation. Since then he reports various abrasions throughout his body which are healing. He reports his right knee, right su,right ankle, and top of the right foot are painful. He describes the pain as sharp and constant rated at 4/10 intensity. He is icing the regions that are painful which only somewhat improves his pain. He has a wound over the right su which he states is not healing as well as the other sites. He says that there is redness around that area and it is enlarging. He denies numbness, tingling, weakness in the legs. He recently completed physical therapy for his hips. Follow-up Associated symptoms include arthralgias and myalgias. Pertinent negatives include no chest pain, chills, fever, numbness or weakness. The following portions of the patient's history were reviewed and updated as appropriate: allergies, current medications, past family history, past medical history, past social history, past surgicalhistory, problem list, and medication reconciliation was completed including current medication andpost discharge medication. Review of Systems Constitutional: Negative for chills and fever. Respiratory: Positive for shortness of breath (SOB at baseline). Negative for wheezing. Cardiovascular: Negative for chest pain, palpitations and leg swelling. Musculoskeletal: Positive for arthralgias, gait problem (ambulates with cane) and myalgias. Neurological: Negative for dizziness, weakness, light-headedness and numbness. Objective Physical Exam Constitutional: General: He is not in acute distress. Appearance: Normal appearance. He is not ill-appearing, toxic-appearing or diaphoretic. HENT: Head: Normocephalic and atraumatic. Cardiovascular: Rate and Rhythm: Normal rate and regular rhythm. Pulses: Normal pulses. Heart sounds: Normal heart sounds. No murmur heard. No friction rub. No gallop. Pulmonary: Effort: Pulmonary effort is normal. No respiratory distress. Breath sounds: Normal breath sounds. No stridor. No wheezing, rhonchi or rales. Chest: Chest wall: No tenderness. Musculoskeletal: General: Tenderness (Right lower extremity moderate tenderness to palpation) and signs of injury (1.5 x .5 cm scabbing lesion in the right anterior lower extremity.) present. No swelling or deformity. Right knee: No swelling, deformity, effusion or ecchymosis. Decreased range of motion (Full extension, 10 degree flexion deficit). Left knee: No swelling, deformity, effusion or ecchymosis. Decreased range of motion (Full extension, 10 degree flexion deficit). Right lower leg: Tenderness present. No swelling, deformity, lacerations or bony tenderness. No edema. Left lower leg: No swelling, deformity, lacerations, tenderness or bony tenderness. No edema. Skin: General: Skin is warm and dry. Coloration: Skin is not jaundiced or pale. Findings: Lesion (small 0.5 x 0.5cm scabs located over dorsal surface of all fingers) present. No bruising, erythema or rash. Neurological: General: No focal deficit present. Mental Status: He is alert and oriented to person, place, and time. Cranial Nerves: Cranial nerves 2-12 are intact. Sensory: Sensation is intact. Motor: Motor function is intact. No weakness or atrophy. Gait: Gait is intact. Deep Tendon Reflexes: Reflex Scores: Patellar reflexes are 3+ on the right side and 3+ on the left side. Achilles reflexes are 3+ on the right side and 3+ on the left side. Psychiatric: Mood and Affect: Mood normal. Behavior: Behavior normal. Thought Content: Thought content normal. Judgment: Judgment normal. Assessment/Plan Valentin was seen today for follow-up. Diagnoses and all orders for this visit: Abrasion of anterior right lower leg, subsequent encounter - Cancel: X-ray ankle right minimum 3 views; Future - X-ray ankle right minimum 3 views; Future Check x-ray of his ankle. Pain mostly in lower leg anteriorly and on sides of ankle Cellulitis of right lower extremity There is some redness extending out from the abrasion and he says it is enlarging. But it cover himwith amoxicillin 500 mg 3 times a day for 5 days as he is also on multiple immunosuppressants. Contusion of right lower leg, subsequent encounter Should continue to get better. Will check an x-ray. Continue medications. Other orders - amoxicillin (AMOXIL) 500 mg capsule; Take 1 capsule (500 mg total) by mouth 3 (three) times a dayfor 5 days. Note composed in part by Romel Mccollum MS3 01/25/25 12:00 PM documented in this encounterF[facility]02-22-2025 Radiology Diagnostic study [facility] [place] [address] CT Scan Report Signed Patient: Valentin Torre MR#: [id number] : 1955 Acct:[id number] Age/Sex: 69 / M ADM Date: 5 Loc: ER Room: Type: [facility] ER Attending Dr: Copies to: Matthew Harrell PA-C~ Ordering Provider: Matthew Harrell PA-C Date of Service: 01/12/25 CT/CT lumbar spine wo con: r/o fx. fall CT lumbar spine wo con 01/12/2025 1:11 PM History:Fell down steps TECHNIQUE: Multi detector CT axial slices of the lumbar spine were obtained without IV contrast. Volumetric acquisition sagittal, coronal, and 3-D reconstructions were performed and reviewed on a separate workstation. CT was performed with one or more of the following dose reduction techniques: Auto matedexposure control, adjustment of the mA and/or kV according to patient size, or use of iterative reconstruction technique. COMPARISON: MRI 01/10/2024 FINDINGS: L5-S1: Mild disc disease. Jbyw-id-pbgoiouo neural from narrowing. Advanced facet arthropathy. Laminectomy. L4-5 Postsurgical changes L4-5 status post the decompressive laminectomy and posterior fusion and discectomy. Stable 5 mm of anterolisthesis. Qxau-pr-nccyxsrc foraminal narrowing at this level. L3-4 Moderate severe Junction degenerative changes L3-4 with severe central canal stenosis due to the disc disease and posterior, hypertrophic changes. There is moderate severe neural from narrowing at this level. At L2-3: Severe disc space disease with diffuse disc osteophyte complex formation and hypertrophic changes posterior limits. There is moderate severe central canal stenosis. There is moderate neural from narrowing predominantly right-sided. L1-2: Disc disease and neural foraminal narrowing. Facet arthropathy. Moderatesevere central canal and neural from narrowing. Otherwise no fracture malalignment. Mild levocurvature. Right renal calculi. CT/CT lumbar spine wo con IMPRESSION: Negative acute fracture malalignment. Moderate severe multilevel central canal narrowing due to degenerative changes Impression dictated by: Alo Mayer M.D.01/12/2025 2:53 PM Dictation Location: [place] [address] Transcribed By: [facility] 01/12/25 145 Dictated By: Alo Mayer MD 01/12/25 1438 Signed By: 01/12/25 1459 [facility] Work Phone: 1(912) 527-142602-22-2025 Radiology Diagnostic study [facility] [place] [address] CT Scan Report Signed Patient: Valentin Torre MR#: [id number] : 1955 Acct:[id number] Age/Sex: 69 / M ADM Date: 5 Loc: ER Room: Type: [facility] ER Attending Dr: Copies to: Matthew Harrell PA-C~ Ordering Provider: Matthew Harrell PA-C Date of Service: 01/12/25 CT/CT head/brain wo con: r/o head bleed CT BRAIN WITHOUT CONTRAST: CLINICAL HISTORY: Fall down steps COMPARISON: None TECHNIQUE: Contiguous axial unenhanced images were obtained through the brain. This CT exam was performed using one or more following dose reduction techniques: Automated exposure control, adjustmentof the mA and/or kV accordingto patient size, or use of iterative reconstruction technique. FINDINGS: There is no evidence of midline shift, intra or extra-axial fluid collection, hemorrhage or CT evidence of large vascular distribution stroke. Mild central involutional changes. Mild chronic small vessel ischemic disease. Vascular calculation. Visualized intraorbital contents appear unremarkable. Moderate ethmoid sinus mucosal thickening. Frontal sinus air-fluid levels can be seen with acute bacterial sinusitis. Underpneumatized mastoids. The surrounding soft tissues are normal. CT/CT head/brain wo con IMPRESSION: NO ACUTE INTRACRANIAL ABNORMALITY. CHRONIC SMALL VESSEL CHANGES [id number] PARANASAL SINUS DISEASE Impression dictated by: Alo Mayer M.D.01/12/2025 2:28 PM Dictation Location: [facility]29 Transcribed By: MARV 01/12/251427 Dictated By: Alo Mayer MD 01/12/251425 Signed By: 01/12/251427 [facility] Work Phone: 1(484) 763-903602-22-2025 Evaluation note* Diagnosis Onset Date Resolution Status Admit Date Fall acute January 12, 2025 10:56am Greater trochanteric bursiti s of right hip acute February 08, 2025 9:00am Iliotibial band syndrome, right leg acute February 08, 2025 9:00am Primary osteoarthritis of right hip acute February 08, 2025 9:00am Dyslipidemia acute February 15, 2025 11:58am Essential hypertension acute [facility] 2024 11:58am Frequent PVCs acute February 15, 2025 11:58am Rheumatoid arthritis acute [facility] 2024 11:58am Atypical chest pain resolved February 15, 2025 11:58am Arthritis of facet joint of cervical spine acute February 21, 2025 7:52am Arthritis of lumbosacral spine acute February 21, 2025 7:52am Chronic pain acute February 21, 025 7:52am Osteoarthritis of right hip acute February 21, 2025 7:52am [facility] Work Phone: 1(817) 503-293302-22-2025 Evaluation note* Diagnosis Onset Date Resolution Status Admit Date Fall acute January 12, 2025 10:56am Greater trochanteric bursiti s of right hip acute February 08, 2025 9:00am Iliotibial band syndrome, right leg acute February 08, 2025 9:00am Primary osteoarthritis of right hip acute February 08, 2025 9:00am Dyslipidemia [...] right hip acute March 27, 2025 7:47am [facility] Work Phone: 1(958) 177-797802-20-2025 History of Present illness Narrative* Kali oCnklin, DPM - 01/10/2025 1:10 PM EST Patient: Valentin Torre : 1955 PCP: Sascha Sutton MD SUBJECTIVE This is a 69 y.o. male that presents today with a CC of aches and pains above feet and arch regionsand had orthotics in the past with some improvement but are old and unable to wear at this time. Heal saw physical therapy with history of some lower hip pain and states he has a limb length discrepancy and presents today for possible orthotic fitting for LLD. Pt also presents today with secondary complaints of dry scaly skin to feet. Pt states that they have not been using OTC creams and lotions with minimal relief. Patient states he has a fissure to the right heel is very painful with ambulation has tried [id number] creamswith negative improvement Patient presents today with a CC of elongated, thick nails. Pt states nails have been elongated and thick for many years and cause pain with ambulation in shoegear. Pt has tried previous treatment with minimal relief. Pt presents today for nail care and treatment. Allergies: Allergies Allergen Reactions Aspirin Buf(Pbkdte-Ytaiym-Onz) Other Reaction(s): Other (See Comments), Unknown Abdominal [...] tablet, Take by mouth, Disp: , Rfl: benzonatate (Tessalon) 200 MG capsule, Three times daily as needed for cough (Patient not taking: Reported on 12/19/2024), Disp: , Rfl: biotin 10 MG capsule, Take 1 capsule (10 mg) by mouth in the morning and 1 capsule (10 mg) before bedtime., Disp: 60 capsule, Rfl: 11 budesonide (Rhinocort AQ) 32 MCG/ACT nasal spray, 62,500 sprays, Disp: , Rfl: colchicine 0.6 MG tablet, , Disp: , Rfl: folic acid (Folvite) 1 MG tablet, folic [...] 50 MG/2ML syringe, , Disp: , Rfl: methylPREDNISolone (Medrol) 4 MG tablet, Take 4 mg by mouth in the morning. As needed only. (Patient not taking: Reported on 12/19/2024), Disp: , Rfl: montelukast (Singulair) 10 MG [...] Rfl: primidone (Mysoline) 50 MG tablet, Take 0.5 tablets (25 mg) by mouth at bedtime, Disp: 30 tablet, Rfl: 11 pseudoephedrine-guaiFENesin ER (Mucinex D) 60-600 MG 12 hr tablet, Take 1 tablet by mouth every 12 (twelve) hours (Patient not taking: Reported on 12/19/2024), Disp: , Rfl: simvastatin (Zocor) 20 MG tablet, Take 20 [...] Resource Strain: Low Risk (04/14/2023) Received from [facility], [facility] Overall Financial Resource Strain (CARDIA) Difficulty of Paying Living Expenses: Not hard at all Food Insecurity: No Food Insecurity (12/17/2024) Received from [facility] Hunger Screening Within the past 12 months we worried whether our food would run out before we got money to buy more.: Never True Within the past 12 months the food we bought just didn't last and we didn't have money to get more.: Never True Transportation Needs: No Transportation Needs (04/14/2023) [facility] Lack of Transportation (Medical): No Lack of Transportation (Non-Medical): No Physical Activity: Inactive (05/01/2024) Received from [facility] Exercise Vital Sign Days of Exercise per Week: 0 days Minutes of Exercise per Session: 0 min Stress: No Stress Concern Present (04/14/2023) [facility] [place] of Occupational Health - Occupational Stress Questionnaire Feeling of Stress : Not at all Social Connections: Moderately Integrated (04/14/2023) Received from [facility], [facility] Social Connection and Isolation Panel [NHANES] Frequency of Communication with Friends and Family: Once a week Frequency of Social Gatherings with Friends and Family: Once a week Attends Yazidi Services: More than 4 times per year Active Member of Clubs or Organizations: Yes Attends Club or Organization Meetings: Never Marital Status: Intimate Partner Violence: Not on file Housing Stability: Low Risk (04/14/2023) Received from [facility], [facility] Housing Instability Are you worried [...] cuneiform joint bilaterally have positive bony exostosis Large fissure to right heel with negative drainage or erythema VASC: Positive palpable pedal pulses bilaterally NEURO: Gross sensation intact to bilateral feet ORTHO: Positive pain on palpation to toenails of the left 1,2,3,4,5 toes and right 1,2,3,4,5 toes Minimal pain to bony exostosis to bilateral feet Notable left leg longer than right leg of a proximally [id number] Positive palpation right heel fissure ASSESSMENT 1. 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 Pain due to onychomycosis of toenails of both feet 3. Exostosis of both feet 4. Skin fissure PLAN Pt to continue with accomodative shoe gear for foot swelling b/l Discussed proper foot care with patient today. Debride nails in length and thickness digits 1 through 10 Patient awaits noncovered orthotics Patient education on condition and treatment of condition. Discussed application of hydrating cream to feet twice daily and to not place between toes and to apply prior to bed in evenings and to observe for any redness to feet or red streaks or drainage to feet. Patient to consider vijr-tmi-ymruuns treatments for medication or use of urea cream and prescription today was offered for Lac-Hydrin cream. Prescription today for urea 40 Kali Conklin DPM documented in this encounterHawthorn Children's Psychiatric [id number] Telephone encounter Note* Telephone Encounter - Farida Garay - 01/03/2025 9:47 AM EST Pt will went up to 1 pill of Primidone per. Dr. Claudia escobar has helped and he will [facility] Work Phone: 1(339) 646-190102-13-2025 Miscellaneous Notes* Telephone Encounter - Farida Garay - 01/03/2025 9:47 AM EST Pt will went up to 1 pill of Primidone per. Dr. Taylor it has helped and he will need a new Rx called to [facility] in [place]. documented in this encounterHawthorn Children's Psychiatric [id number] History of Present illness Narrative* Whit Taylor MD - 12/19/2024 11:40 AM EST Images from the original note were not included. Patient is here for a follow up. He states the tremors are worse. He is still taking the biotin butdoes not seem to be helping at all. States they are primarily in the hands. He denies having the tremors any where else. Patient does have issues with balance. States he is doing PT. States that he went to a store within the past few weeks after PT and fell. He is ambulating with a cane today. States he is having more when is driving. He states stress does not help. States he woke up during the night and had them. States that even when he is talking to someone he will get the tremors. Patient states he sleeps well. Denies any vivid dreams or hallucinations. He is wondering what he can take for his sinuses. CHIEF COMPLAINT REASON FOR VISIT : HPI: Valentin Torre is a 69 y.o. male who presents for CURRENT MEDICATIONS: ALLERGIES/DISCONTINUE MEDICATIONS Current Outpatient Medications Medication Instructions acetaminophen (Tylenol) 500 MG tablet Take by mouth benzonatate (Tessalon) 200 MG capsule Three times daily as needed for cough biotin 10 mg, Oral, 2 times daily budesonide (Rhinocort AQ) 32 MCG/ACT nasal spray 62,500 sprays colchicine 0.6 MG tablet folic acid (Folvite) 1 MG tablet folic acid 1 mg tablet hydroxychloroquine (Plaquenil) 200 MG tablet hydroxychloroquine 200 mg tablet TAKE 1 TABLET BY MOUTH TWICE A DAY leflunomide (Arava) 10 MG tablet leucovorin (Wellcovorin) 5 MG tablet Take by mouth. Take with a full glass of water. lisinopril-hydroCHLOROthiazide 20-12.5 MG tablet 1 tablet, Every morning meloxicam (Mobic) 15 MG tablet methotrexate (XATMEP) 2.5 mg Methotrexate Sodium (methotrexate PF) 50 MG/2ML syringe methylPREDNISolone (MEDROL) 4 mg, Daily montelukast (Singulair) 10 MG tablet Take by mouth nabumetone (RELAFEN) 750 mg omeprazole (PriLOSEC) [address] capsule potassium bicarbonate (K-Lyte) 25 MEQ effervescent tablet Take by mouth prednisoLONE acetate (Pred-Forte) 1 % ophthalmic suspension primidone (MYSOLINE) 25 mg, Oral, Nightly pseudoephedrine-guaiFENesin ER (Mucinex D) 60-600 MG 12 hr tablet 1 tablet, Every 12 hours simvastatin (ZOCOR) 20 mg, Nightly tamsulosin (FLOMAX) 0.4 mg, Daily traMADol (Ultram) 50 MG tablet Take by mouth Allergies Allergen Reactions Aspirin Buf(Zpracg-Hzquky-Nmq) Other Reaction(s): Other (See Comments), Unknown Abdominal pain Calcium Carbonate GI intolerance Cephalexin Other Reaction(s): Unknown, Unknown, Unknown Reaction Cephalosporins Unknown Magnesium GI intolerance Oxycodone Hallucinations Other Reaction(s): Hallucinating, Mental Status Change, Unknown Sulfa Antibiotics Rash Other Reaction(s): Other (See Comments), Unknown Medications Discontinued During This Encounter Medication Reason predniSONE (Deltasone) 20 MG tablet Therapy completed PAST MEDICAL HISTORY: SURGICAL/SOCIAL/FAMILY HISTORY DEPRESSION SCREEN: [...] both wrists COLONOSCOPY EGD EYE SURGERY Left 2013 removed linda left(cancer) HIATAL HERNIA REPAIR 04/26/2017 [...] Father Hypertension Father Depression: Not at risk (12/17/2024) Received from [facility] PHQ-2 Total Score: 0 REVIEW OF SYMPTOMS: Review of Systems Const: Denies appetite change, fever, chills. Allergy: Denies medication reaction. Ocular: Denies visual acuity change. ENT: Denies hearing change. Endoc: Denies weight loss. Resp: Denies dyspnoea, wheezing. Cardiac: Denies angina, palpitations. GI: Denies nausea, vomiting. Haem: Denies bleeding. : Denies incontinence. MSK: Denies arthralgias, joint oedema. Derm: Denies rash, hair loss. Neuro: Denies ataxia, tremor. Also see HPI for elements of ROS documented therein and for details of positive findings, which shall supersede the foregoing. OBJECTIVE: 12/19/2024 11:39 AM 12/17/2024 2:20 PM 12/06/2024 9:58 AM Vitals BMI 32.84 kg/m2 32.99 kg/m2 32.99 kg/m2 BSA (m2) 2.17 m2 2.17 m2 2.17 m2 Resp 16 Height (in) 5' 8 5' 8 5' 8 Weight (lb) 216 217 217 Visit Report Report Report Report EXAM: Neurological Exam GENERAL EXAMINATION Appearance: in no acute distress, well developed, well nourished. Head: normocephalic, atraumatic. Eyes: pupils equal, round, reactive to light and accommodation. Ears: normal. Mouth: mucosa moist. Throat: clear. Neck: neck supple, full range of motion, no cervical lymphadenopathy. Skin: no suspicious lesions, warm and dry. Heart: no murmurs, regular rate and rhythm, S1, S2 normal. Lungs: clear to auscultation bilaterally. Abdomen: normal, bowel sounds present, soft, nontender, nondistended. Extremities: no clubbing, cyanosis, or edema. NEUROLOGICAL EXAMINATION Mental Status: The patient is alert and oriented to person, place, and time. Except as noted, thought content, form, and comprehension was normal. Phonation, articulation, resonance, and prosody are normal. Cranial Nerves: Pupils were 4.0 millimeters, equal, round, and reactive to light and accommodation,both directly and consensually. Visual kirby were full by confrontation. There was no ptosis; extra-ocular movements were full; and there was no nystagmus. Funduscopic exam is normal. Masseters are of normal strength. Facial movement is normal. Hearing is grossly intact. There is no dysarthria. The gag reflex is equal bilaterally. Sternocleidomastoids and trapezii are of normal strength. The tongue protrudes in the midline. Motor: Muscle testing was performed in all four extremities, including at least assisted living associate, finger abductors, biceps, triceps, deltoid, toe flexors and extensors, tibialis anterior, triceps surae, quadriceps femoris, biceps femoris, and iliopsoases. Tone is normal. Muscle bulk is normal. Fasciculations are not seen . Pronator drift was not evident. Sensory: Sensation to touch, temperature, and vibration was normal in the arms, legs and face. Romberg is negative. Reflexes: Biceps, triceps, brachioradialis are 2/4 bilaterally. Patellar and Achilles reflexes are 2/4 bilaterally. Plantar responses were flexor bilaterally. Coordination: Dysmetria and dysdiadochokinesia are absent. Tremor is absent; dystonia is absent; chorea is absent. Gait And Station: Station and gait are normal. Apraxia and spasticity are not evident. Arm swing isnormal. Toe, heel, and tandem walking are performed without difficulty. Musculoskeletal: Trigger-point tenderness was absent. There is no spasm of the trapezii or paraspinals. PROCEDURE: NONE ASSESSMENT AND PLAN: Diagnoses and all orders for this visit: Intention tremor - primidone (Mysoline) 50 MG tablet; Take 0.5 tablets (25 mg) by mouth at bedtime -I will start the patient on biotin 10 mg to be taken once or twice daily for overall nerve and brain health. -I will start the patient on thiamine (Vitamin B-1) 100 mg PO daily to help in both brain and nervenutrition - Piriformis syndrome of right side; -I will arrange for physical therapy for improvement in lumbar pain, increase ROM, and improve function. documented in this encounterHawthorn Children's Psychiatric [id number] History of Present illness Narrative* Carlos Eden, - 12/17/2024 2:30 PM EST Subjective Patient ID: HPI Patient presents today to reinspect a right thyroid nodule, previously 1.2 cm Marianna II. He is doing fine Review of Systems ROS The specialty specific review of systems is noncontributory except for that recorded in the intake questionnaire and /or described in the history of present illness. Objective ENT Physical Exam Physical Exam Constitutional: Appearance: Normal appearance. HENT: Head: Atraumatic. Ears: External ear shows no abnormality Bilateral ear canals are clear Tympanic membranes intact, no evidence of middle ear fluid or other pathology. Nose: External nose appears to be normal Nares patent. Septal deviation to the right No evidence of polyp, mass or pus bilaterally. Oral Cavity: No evidence of trismus Lips appear normal Dental decent Tongue of normal size and configuration, floor of mouth mucosa clear. 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 No cervical lymphadenopathy present. Cardiovascular: Rate and Rhythm: Normal rate and regular rhythm. . Skin: General: Skin is warm and dry. Neurological: General: No focal deficit present. Mental Status: alert and oriented to person, place, and time. THYROID ULTRASOUND EXAMINATION Indication: Thyroid nodule After informed consent was obtained the patient was placed supine on the examining table. Patient was asked to extend the neck. Topical ultrasound jelly was used. The right lobe of the thyroid gland measures _ 4.4 cm in greatest dimension. In the inferioraspect of the lobe was a hypoechoic well demarcated nodule with no internal vascularity microcalcification measuring 1.29 cm in greatest dimension. The isthmus is unremarkable. The left lobe of the thyroid gland measures ___ 4.3 ____ cm greatest dimension. No identifiable nodular mass There is no adenopathy in the central compartment. There is no appreciable adenopathy in either lateral neck. Assessment/Plan Valentin was seen today for thyroid nodule. Diagnoses and all orders for this visit: Thyroid nodule (CMS/HCC) (Primary) Comments: There has been no change in the right-sided thyroid nodule, previously biopsied and benign. I will see him back in 1 year and perform ultrasound at that time documented in this encounterHawthorn Children's Psychiatric [id number] History of Present illness Narrative* Sascha Sutton DO - 12/17/2024 10:00 AM EST Subjective Patient ID: Valentin Torre is a 69 y.o. male. Jeffry presents today for a CV recheck. He is taking his medications. He does not have any side effects. He has been having some musculoskeletal issues lately. He has been having hip and leg issues. He has been getting physical therapy. He has had injections into his hip. He did fall after his foot wentnumb. He now needs to ambulate with a cane. He wonders how long he needs a cane. He has also been diagnosed with intentional tremor. It makes it more difficult for him to write andto drink. He has occasional sinus pain and pressure above his eyes. He wonders what he can take. He is already using a nasal spray, Claritin, Singulair and steroids. 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 Hyperlipidemia Associated symptoms include myalgias. The following portions of the patient's history were reviewed and updated as appropriate: allergies, current medications, past family history, past medical history, past social history, past surgicalhistory, problem list, and medication reconciliation was completed including current medication andpost discharge medication. Review of Systems Constitutional: Negative. HENT: Positive for sinus pressure and sinus pain. Eyes: Negative. Respiratory: Negative. Gastrointestinal: Negative. Genitourinary: Negative. Musculoskeletal: Positive for arthralgias, back pain, gait problem and myalgias. Neurological: Positive for tremors, weakness and numbness. Psychiatric/Behavioral: Negative. Objective Physical Exam Exam conducted with a tabular typist present (Junior Collins MS III). Constitutional: General: He is not in acute distress. Appearance: He is obese. HENT: Head: Normocephalic and atraumatic. Right Ear: Decreased hearing noted. Left Ear: Decreased hearing noted. Eyes: General: No scleral icterus. Extraocular Movements: Extraocular movements intact. Conjunctiva/sclera: Conjunctivae normal. Neck: Thyroid: No thyroid mass, thyromegaly or thyroid tenderness. Cardiovascular: Rate and Rhythm: Normal rate and [...] Musculoskeletal: Cervical back: Neck supple. No tenderness. Lymphadenopathy: Cervical: No cervical adenopathy. Skin: General: Skin is warm and dry. Neurological: General: No focal deficit present. Mental Status: He is alert and oriented to person, place, and time. Motor: Tremor (Very slight at the end of intentional movement like touching nose) present. Gait: Gait abnormal (ambulates with a cane). Psychiatric: Attention and Perception: Attention normal. Mood and Affect: Mood normal. Speech: Speech normal. Behavior: Behavior normal. Behavior is cooperative. Thought Content: Thought content normal. Cognition and Memory: Cognition normal. Judgment: Judgment normal. Assessment/Plan Valentin was seen today for hypertension and hyperlipidemia. Diagnoses and all orders for this visit: Essential hypertension Blood pressure at goal. CMP at ok. Hyperlipidemia, unspecified hyperlipidemia type Lipids are at goal. Intention tremor Follow up with neurologist as directed 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[facility]) Follow up with business process specialist as directed Antiphospholipid syndrome ([facility]) Follow up with patient care nursing assistant as directed Class 1 obesity due to excess calories with serious comorbidity and body mass index (BMI) of 33.0 to 33.9 in adult He is obese. It is contributing to high blood pressure and high cholesterol. He would benefit from weight loss. Diet discussed. He is currently in physical therapy. Continue with a cane for now. PT maybe able to give some direction as to if they think it is safe for him to not use the cane any longer. If he feels like he is going to fall he should use it or if he needs it for stability. documented in this encounterOhio State Health SystemCarNinja, Inc [id number] Evaluation note* Diagnosis Onset Date Resolution Status Admit Date Arthritis of facet joint of cervical spine acute November 26 9:44am Arthritis of lumbosacral spine acute November 26, 2024 9:44am Chronic pain acute November 26, 2024 9:44am Osteoarthritis of right hip acute November 26, 2024 9:44am Fall acute January 12, 2025 10:56am Greater trochanteric bursiti s of right hip acute February 08, 2025 9:00am Iliotibial band syndrome, ri ght leg acute February 08, 2025 9:00am Primary osteoarthritis of ri ght hip acute February 08, 2025 9:00am [facility] Work Phone: 1([phone]) 872-718501-06-2025 Evaluation note* Diagnosis Onset Date Resolution Status Admit Date Arthritis of facet joint of cervical spine acute November 26 9:44am Arthritis of lumbosacral spine acute November 26, 2024 9:44am Chronic pain acute November 26, 2024 9:44am Osteoarthritis of right hip acute November 26, 2024 9:44am Fall acute January 12, 2025 10:56am Greater trochanteric bursiti s of right hip acute February 08, 2025 9:00am Iliotibial band syndrome, ri ght leg acute February 08, 2025 9:00am Primary osteoarthritis of ri ght hip acute February 08, 2025 9:00am Atypical chest pain acute February 15, 2025 11:58am Dyslipidemia acute February 15, 2025 11:58am Essential hypertension acute [facility] 2024 11:58am Frequent PVCs acute February 15, 2025 11:58am Rheumatoid arthritis acute [facility] 2024 11:58am [facility] Work Phone: 1(133) 217-467401-06-2025 Evaluation note* Diagnosis Onset Date Resolution Status Admit Date Arthritis of facet joint of cervical spine acute November 26 9:44am Arthritis of lumbosacral spine acute November 26, 2024 9:44am Chronic pain acute November 26, 2024 9:44am Osteoarthritis of right hip acute November 26, 2024 9:44am Fall acute January 12, 2025 10:56am Greater trochanteric bursiti s of right hip acute February 08, 2025 9:00am Iliotibial band syndrome, ri ght leg acute February 08, 2025 9:00am Primary osteoarthritis of ri ght hip acute February 08, 2025 9:00am Atypical chest pain acute February 15, 2025 11:58am Dyslipidemia acute February 15, 2025 11:58am Essential hypertension acute [facility] 2024 11:58am Frequent PVCs acute February 15, 2025 11:58am Rheumatoid arthritis acute [facility] 2024 11:58am Arthritis of facet joint of cervical spine acute February 21, 2025 7:52am Arthritis of lumbosacral spine acute February 21, 2025 7:52am Chronic pain acute February 21, 7:52am Osteoarthritis of right hip acute February 21, 2025 7:52am [facility] Work Phone: 1(555) 945-605112-20-2024 Evaluation note* Diagnosis Onset Date Resolution Status Admit Date Greater trochanteric bursiti s of right hip acute November 09, 10:51am Primary osteoarthritis of ri ght hip acute November 09 10:51am Arthritis of facet joint of cervical spine acute November 26 9:44am Arthritis of lumbosacral spine acute November 26, 2024 9:44am Chronic pain acute November 26, 2024 9:44am Osteoarthritis of right hip acute November 26, 2024 9:44am Fall acute January 12, 2025 10:56am [facility] Work Phone: 1(926) 737-740812-12-2024 History of Present illness Narrative* Kali Conklin, HUGOM - 11/01/2024 1:00 PM EST Patient: Valentin Torre : 1955 PCP: Sascha Sutton MD SUBJECTIVE This is a 69 y.o. male that presents today with a CC of elongated, thick nails. Pt states nails have been elongated and thick for many years and cause pain with ambulation in shoegear. Pt has tried previous treatment with minimal relief. Pt presents today for nail care and treatment. Patient also has issues from time to time with swelling to his right foot particularly and bone spur on top of his right foot however only an issue when he has increased swelling to the foot. Patienttries to accommodate with shoe gear Allergies: Allergies Allergen Reactions Aspirin Buf(Xcapfb-[id number]-Gtl) Other Reaction(s): Other (See Comments), Unknown Abdominal [...] tablet, Take by mouth, Disp: , Rfl: benzonatate (Tessalon) 200 MG capsule, Three times daily as needed for cough, Disp: , Rfl: biotin 10 MG capsule, Take 1 capsule (10 mg) by mouth in the morning and 1 capsule (10 mg) before bedtime., Disp: 60 capsule, Rfl: 0 budesonide (Rhinocort AQ) 32 MCG/ACT nasal spray, 62,500 sprays, Disp: , Rfl: colchicine 0.6 MG tablet, , Disp: , Rfl: folic acid (Folvite) 1 MG tablet, folic [...] 50 MG/2ML syringe, , Disp: , Rfl: methylPREDNISolone (Medrol) 4 MG tablet, Take 4 mg by mouth in the morning. As needed only., Disp: , Rfl: montelukast (Singulair) 10 MG tablet, Take by mouth, Disp: , Rfl: nabumetone (Relafen) 750 MG tablet, Take 750 mg by mouth, Disp: , Rfl: omeprazole (PriLOSEC) [address] capsule, , Disp: , Rfl: potassium bicarbonate (K-Lyte) 25 MEQ effervescent tablet, Take by mouth, Disp: , Rfl: prednisoLONE acetate (Pred-Forte) 1 % ophthalmic suspension, , Disp: , Rfl: predniSONE (Deltasone) 20 MG tablet, , Disp: , Rfl: pseudoephedrine-guaiFENesin ER (Mucinex D) 60-600 MG 12 hr tablet, Take 1 tablet by mouth every 12 (twelve) hours, Disp: , Rfl: simvastatin (Zocor) 20 MG tablet, Take 20 [...] Resource Strain: Low Risk (04/14/2023) Received from [facility] [facility], [facility] Overall Financial Resource Strain (CARDIA) Difficulty of Paying Living Expenses: Not hard at all Food Insecurity: No Food Insecurity (09/24/2024) [facility] from [facility] Hunger Screening Within the past 12 months we worried whether our food would run out before we got money to buy more.: Never True Within the past 12 months the food we bought just didn't last and we didn't have money to get more.: Never True Transportation Needs: No Transportation Needs (04/14/2023) [facility], [facility] - Transportation Lack of Transportation (Medical): No Lack of Transportation (Non-Medical): No Physical Activity: Inactive (05/01/2024) Received from [facility] Exercise Vital Sign Days of Exercise per Week: 0 days Minutes of Exercise per Session: 0 min Stress: No Stress Concern Present (04/14/2023) Received from [facility] [place] [facility] Occupational [facility] - Occupational Stress Questionnaire Feeling of Stress : Not at all Social Connections: Moderately Integrated (04/14/2023) Received from [facility], [facility] Social Connection and Isolation Panel [NHANES] Frequency of Communication with Friends and Family: Once a week Frequency of Social Gatherings with Friends and Family: Once a week Attends Yazidi Services: More than 4 times per year Active Member of Clubs or Organizations: Yes Attends Club or Organization Meetings: Never Marital Status: Intimate Partner Violence: Not on file Housing Stability: Low Risk (04/14/2023) Received from [facility], [facility] Housing Instability Are you worried or concerned [...] cuneiform joint bilaterally have positive bony exostosis VASC: Positive palpable pedal pulses bilaterally NEURO: Gross sensation intact to bilateral feet ORTHO: Positive pain on palpation to nails 1 through 10 Minimal pain to bony exostosis to bilateral feet ASSESSMENT 1. Pain due to onychomycosis of toenails of both feet 2. Exostosis of both feet PLAN Discussed proper foot care with patient today. Debride nails in length and thickness digits 1 through 10 Discussed shoe gear today as well as if problems develop may need surgical removal however patient states he has only issues with any has some swelling to his feet . Kali Conklin DPM documented in this encounterHawthorn Children's Psychiatric [id number] Evaluation note* Diagnosis Onset Date Resolution Status Admit Date Primary osteoarthritis of ri ght hip acute October 17 8:46am Greater trochanteric bursiti s of right hip acute November 09 10:51am Primary osteoarthritis of ri ght hip acute November 09 10:51am Arthritis of facet joint of cervical spine acute November 26 9:44am Arthritis of lumbosacral spine acute November 26, 2024 9:44am Chronic pain acute November 26, 2024 9:44am Osteoarthritis of right hip acute November 26, 2024 9:44am [facility] Work Phone: 1(297) 820-311611-27-2024 Evaluation note* Diagnosis Onset Date Resolution Status Admit Date Primary osteoarthritis of ri ght hip acute October 17 8:46am Greater trochanteric bursiti s of right hip acute November 09 10:51am Primary osteoarthritis of ri ght hip acute November 09 10:51am Arthritis of facet joint of cervical spine acute November 26 9:44am Arthritis of lumbosacral spine acute November 26, 2024 9:44am Chronic pain acute November 26, 2024 9:44am Osteoarthritis of right hip acute November 26, 2024 9:44am Fall acute January 12, 2025 10:56am [facility] Work Phone: 1(775) 312-949011-25-2024 History of Present illness Narrative* Whit Taylor MD - 10/15/2024 9:30 AM EST Images from the original note were not included. CHIEF COMPLAINT REASON FOR VISIT: Tremors HPI: Valentin Torre is a 69 y.o. male who presents for A new patient consultation referred by Dr. Davisfor tremors in both upper extremities. States can [...] Dr. Khalil/Harsha for pain management for nerve andback issues. Lumbar MRI-severe stenosis L3-L4 ; Disc bulging. S/P Lumbar fusion-Dr. Phillips July 2019. S/P ulnar nerve release April 2024. Labs 07/03/2024. Takes tramadol 50 mg for management of pain. States he does have Lupus & Rheumatoid Arthritis. 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 Denies any other concerns. [...] MG tablet Oral Allergies Allergen Reactions Aspirin Buf(Schmwc-Xmqxtb-Zyc) Other Reaction(s): Other (See Comments), Unknown Abdominal [...] Depression: Not at risk (09/24/2024) Received from [facility] PHQ-2 Total Score: 0 REVIEW OF SYMPTOMS: [...] Oriented to person, place and time. Recent andremote memory are intact. Speech is normal. Language [...] reflexes: Teja's absent. Ankle clonus absent. Coordination Xazxtr-vs-qmon, rapid alternating movements and afzh-pu-ifdm normal bilaterally without dysmetria. Gait Normal casual, toe, heel and tandem gait. Romberg is absent. PROCEDURE: NONE ASSESSMENT AND PLAN: Valentin Torre is a 69 y.o. male who presents with tremor in the bilateral upper extremities. Possible etiologies include benign essential tremor, extrapyramidal symptoms secondary to medications, ora neurodegenerative process such as Parkinson's disease. An [...] Follow up 8 weeks. documented in this encounterHawthorn Children's Psychiatric [id number] History of Present illness Narrative* Sascha Sutton, DO - 10/09/2024 2:00 PM EST Subjective Patient ID: Valentin Torre is [...] given predniSONE (DELTASONE) 20 mg tablet and mfenxiudgpl-wdpokgwlk-pkssmddv (TRELEGY ELLIPTA) 100-62.5-25 mcg blister with device. Neither medications havehelped. He also takes seema, which has not helped either. Cough Pertinent negatives include no chills or fever. The following portions of the patient's history were reviewed and updated as appropriate: allergies, current medications, past family history, past medical history, past social history, past surgicalhistory, problem list, and medication reconciliation was completed including current medication andpost discharge medication. Review of Systems Constitutional: Negative [...] Sinus: Frontal sinus tenderness present. Mouth/Throat: Lips: [place]. Mouth: Mucous membranes are moist. Pharynx: Posterior [...] this for 10 days. documented in this encounterOhio State Health SystemCarNinja, Inc [id number] History of Present illness Narrative* Sascha Sutton DO - 09/24/2024 1:30 PM EST Subjective Patient ID: Valentin Torre is [...] Exam Vitals reviewed. Exam conducted with a tabular typist present (Ramiro Ferreira MS III). Constitutional: General: He is not in acute distress. Appearance: He is obese. He is not ill-appearing. HENT: Head: Normocephalic. Right Ear: Ear canal and external ear normal. Decreased hearing noted. Tympanic membrane is scarredand erythematous. Left Ear: Ear canal and external ear normal. Decreased hearing noted. Tympanic membrane is scarred and erythematous. Ears: Comments: Wearing hearing aids Nose: Nose normal. Right Turbinates: Not pale. Left Turbinates: Not pale. Right Sinus: No maxillary sinus tenderness. Left Sinus: No maxillary sinus tenderness. Mouth/Throat: Lips: [place]. Mouth: Mucous membranes are moist. Pharynx: Oropharynx [...] 10 mL by mouth 3 (three) times aday as needed for cough. Likely a viral upper respiratory infection. No worrisome symptoms. Will treat conservatively with a3 day prednisone burst and a sample of Trelegy given. Sounds like he has a component of reactive airway disease. Call if feverish or shortness a breath arises. Other orders - predniSONE (DELTASONE) 20 mg tablet; Take 1 tablet (20 mg total) by mouth 3 (three) times a day for 3 days. - xhvirdgiayi-xtohentwh-edltvvqi (TRELEGY ELLIPTA) 100-62.5-25 mcg blister with device; Inhale 1 puff once daily for 14 days. documented in this encounterOhio State Health SystemLuqit10-30-2024 Evaluation note* Diagnosis Onset Date Resolution Status Admit Date Cough acute September 19, 2024 9:04am Shortness of breath acute Octob er 2023 9:04am Primary osteoarthritis of ri ght hip acute October 17, 8:46am Greater trochanteric bursiti s of right hip acute November 09 10:51am Primary osteoarthritis of ri ght hip acute November 09 10:51am Arthritis of facet joint of cervical spine acute November 26 9:44am Arthritis of lumbosacral spine acute November 26, 2024 9:44am Chronic pain acute November 26, 2024 9:44am Osteoarthritis of right hip acute November 26, 2024 9:44am [facility] Work Phone: 1(268) 665-216010-14-2024 Hospital Discharge instructions Patient Education 09/03/2024 10:59:52 [...] Follow these instructions at home: Medicines Take efux-khm-pgfdjqk and prescription medicines only as told by [...] to keep your pee pale yellow. ?Take fiwx-vge-osiutty or prescription medicines. ?Eat foods that are [...] provider. Document Revised: 07/08/2023 Document Reviewed: 07/08/2023 WikiYou Patient Education 2023 [employer]. 09/03/2024 10:59:51 Laser Therapy for Kidney Stones [...] are painful or that are stopping you frombeing able to pee. Tell a health care provider about: Any allergies you have. All medicines you are taking, including vitamins, herbs, eye drops, creams, and uoet-ree-daakmbf medicines. Any problems you or family members [...] unless your provider tells you to. ?Taking trou-csn-imdmigp medicines, vitamins, herbs, and supplements. Tests You [...] for at least 4 weeks before the procedure.These products include cigarettes, chewing tobacco, and vaping [...] monitored until youleave the hospital or clinic. If you had [...] provider. Document Revised: 07/08/2023 Document Reviewed: 07/08/2023 WikiYou Patient Education 2023 [employer]. Follow Up Care 09/19/2023 10:33:39 With:FLAVIO ONEAL, Zac De Oliveira, UREverette Address: [facility] [address] [place] [address]- [phone] When: Unknown [facility] 10-14-2024 NotePatient Education Nephrology Laser Therapy for Kidney Stones, [...] if you had a small mesh tube (stent)placed during the procedure. Follow these instructions at home: Medicines ? Take zylh-tss-unswgxd and prescription medicines only as told by [...] keep your pee pale yellow. ? Take tdzo-wqk-gwuyhrh or prescription medicines. ? Eat foods that [...] to go back to your provider to haveit removed. Your provider may give you more [...] provider. Document Revised: 07/08/2023 Document Reviewed: 07/08/2023 WikiYou Patient Education ? 2023 [employer]. Laser Therapy for Kidney Stones Laser therapy [...] are painful or that are stopping you frombeing able to pee. Tell a health care provider about: ? Any allergies you have. ? All medicines you are taking, including vitamins, herbs, eye drops, creams, and dzus-mrk-oulhfhy medicines. ? Any problems you or family [...] foods. Do not e (more content not included)...[facility]09-27-2024 History of Present illness Narrative* Kali Conklin DPM - 08/17/2024 2:40 PM EDT Patient: Valentin Torre : 1955 PCP: Sascha Sutton MD SUBJECTIVE This is a 69 y.o. male that presents today with a CC of elongated, thick nails. Pt states nails have been elongated and thick for many years and cause pain with ambulation in shoegear. Pt has tried previous treatment with minimal relief. Pt presents today for nail care and treatment. Patient also has issues from time to time with swelling to his right foot particularly and bone spur on top of his right foot however only an issue when he has increased swelling to the foot. Patienttries to accommodate with shoe gear Allergies: Allergies Allergen Reactions Aspirin Buf(Tlstag-Bkdzwe-Sld) Other Reaction(s): Other (See Comments), Unknown Abdominal [...] tablet, Take by mouth, Disp: , Rfl: budesonide (Rhinocort AQ) 32 MCG/ACT nasal spray, 62,500 sprays, Disp: , Rfl: colchicine 0.6 MG tablet, , Disp: , Rfl: folic acid (Folvite) 1 MG tablet, folic acid 1 mg tablet, Disp: , Rfl: hydroxychloroquine (Plaquenil) 200 MG tablet, hydroxychloroquine 200 mg tablet TAKE 1 TABLET BY MOUTH TWICE A DAY, Disp: , Rfl: leucovorin (Wellcovorin) 5 MG tablet, Take by mouth. Take with a full glass of water., Disp: , Rfl: methotrexate (Xatmep) 2.5 MG/ML oral solution, Take 2.5 mg by mouth, Disp: , Rfl: methylPREDNISolone (Medrol) 4 MG tablet, Take 4 mg by mouth in the morning. As needed only., Disp: , Rfl: montelukast (Singulair) 10 MG tablet, Take by mouth, Disp: , Rfl: nabumetone (Relafen) 750 MG tablet, Take 750 mg by mouth, Disp: , Rfl: potassium bicarbonate (K-Lyte) 25 MEQ effervescent tablet, Take by mouth, Disp: , Rfl: prednisoLONE acetate (Pred-Forte) 1 % ophthalmic suspension, , Disp: , Rfl: pseudoephedrine-guaiFENesin ER (Mucinex D) 60-600 MG 12 hr tablet, Take 1 tablet by mouth every 12 (twelve) hours, Disp: , Rfl: simvastatin (Zocor) 20 MG tablet, Take 20 [...] Social History Narrative Not on file Social Determinants of Health Financial Resource Strain: Low Risk (04/14/2023) [facility], [facility] [facility] Overall Financial Resource Strain (CARDIA) Difficulty of Paying Living Expenses: Not hard at all Food Insecurity: No Food Insecurity (06/14/2024) Received from [facility] Hunger Screening Within the past 12 months we worried whether our food would run out before we got money to buy more.: Never True Within the past 12 months the food we bought just didn't last and we didn't have money to get more.: Never True Transportation Needs: No Transportation Needs (04/14/2023) [facility], [facility] PRAPARE - Transportation Lack of Transportation (Medical): No Lack of Transportation (Non-Medical): No Physical Activity: Inactive (05/01/2024) Received from [facility] Exercise Vital Sign Days of Exercise per Week: 0 days Minutes of Exercise per Session: 0 min Stress: No Stress Concern Present (04/14/2023) Received from [facility], [facility] [place] of Occupational Health - Occupational Stress Questionnaire Feeling of Stress : Not at all Social Connections: Moderately Integrated (04/14/2023) Received from [facility], [facility] Social Connection and Isolation Panel [NHANES] Frequency of Communication with Friends and Family: Once a week Frequency of Social Gatherings with Friends and Family: Once a week Attends Yazidi Services: More than 4 times per year Active Member of Clubs or Organizations: Yes Attends Club or Organization Meetings: Never Marital Status: Intimate Partner Violence: Not on file Housing Stability: Low Risk (04/14/2023) Received from [facility], [facility] Housing Instability Are you worried or concerned [...] cuneiform joint bilaterally have positive bony exostosis VASC: Positive palpable pedal pulses bilaterally NEURO: Gross sensation intact to bilateral feet ORTHO: Positive pain on palpation to nails 1 through 10 Minimal pain to bony exostosis to bilateral feet ASSESSMENT 1. Exostosis of both feet 2. Onychomycosis 3. Toe pain, bilateral PLAN Discussed proper foot care with patient today. Debride nails in length and thickness digits 1 through 10 Discussed shoe gear today as well as if problems develop may need surgical removal however patient states he has only issues with any has some swelling to his feet and some redness to the area but negative openings or sores. Inform patient that looser shoes and on top may be beneficial and then if he becomes have more problems contact Podiatry Kali Conklin DPM documented in this encounterHawthorn Children's Psychiatric [id number] Evaluation note* Diagnosis Onset Date Resolution Status Admit Date Arthritis of facet joint of cervical spine acute July 25, 2 024 10:01am Arthritis of lumbosacral spine acute July 25, 2024 10:01am Chronic pain acute July 10:01am Arthritis of facet joint of cervical spine acute August 20, 2024 10:16am Arthritis of lumbosacral spine acute August 20, 2024 10:16am Chronic pain acute August 202023 10:16am Osteoarthritis of right hip acute August 20, 2024 10:16am Primary osteoarthritis of ri ght hip acute August 29 10:05am Cough acute September 19, 2024 9:04am Shortness of breath acute Octob er 2023 9:04am [facility] Work Phone: 1(904) 284-339707-26-2024 Miscellaneous Notes* Telephone Encounter - Karin Camacho - 06/15/2024 10:34 AM EDT ----- Message from Dr. Sascha Sutton DO sent at 06/14/2024 10:00 PM EDT ----- His metabolic panel was normal. No electrolyte abnormalities. His liver tests were normal. His GFR was 74 which is stage 2 chronic kidney disease but nothing to really worry about at this point. Recheck in 6 months. Continue current regimen * Telephone Encounter - Ally Phillips CMA - 06/15/2024 10:34 AM EDT Pt called read your note stated he understood documented in [facility] Telephone encounter Note* Telephone Encounter - Karin Camacho - 06/15/2024 10:34 AM EDT ----- Message from Dr. Sascha Sutton DO sent at 06/14/2024 10:00 PM EDT ----- His metabolic panel was normal. No electrolyte abnormalities. His liver tests were normal. His GFR was 74 which is stage 2 chronic kidney disease but nothing to really worry about at this point. Recheck in 6 months. Continue current regimen [facility] [id number] Telephone encounter Note* Telephone Encounter - Ally Phillips CMA - 06/15/2024 10:34 AM EDT Pt called read your note stated he understood [facility] [id number] History of Present illness Narrative* Sascha Sutton DO - 06/14/2024 1:30 PM EDT Subjective Patient ID: Valentin Torre is a 69 y.o. male. Jeffry presents today for recheck of his high blood pressure. He is taking his medication. He is nothaving any side effects. He has had a lot of other issues going on since his last visit. He had hisright ulnar nerve released and he is getting feeling and strength back in his right hand. He had nerves burned in his back and that is feeling better. When he had an MRI of his neck he they found thyroid nodule. He just had a fine-needle aspiration of it the other day and it was not cancer. The following portions of the patient's history were reviewed and updated as appropriate: allergies, current medications, past family history, past medical history, past social history, past surgicalhistory, problem list, and medication reconciliation was completed including current medication andpost discharge medication. Review of Systems Constitutional: Negative. Respiratory: Negative. Cardiovascular: Negative. Musculoskeletal: Positive for arthralgias and back pain. Neurological: Positive for numbness. Psychiatric/Behavioral: Negative. Objective Physical Exam Exam conducted with a tabular typist present (Junior Collins MS III). Constitutional: General: He is not in acute distress. Appearance: He is obese. HENT: Head: Normocephalic and atraumatic. Right Ear: Decreased hearing noted. Left Ear: Decreased hearing noted. Eyes: General: No scleral icterus. Extraocular Movements: Extraocular movements intact. Conjunctiva/sclera: Conjunctivae normal. Neck: Thyroid: No thyroid mass, thyromegaly or thyroid tenderness. Cardiovascular: Rate and Rhythm: Normal rate and [...] Musculoskeletal: Cervical back: Neck supple. No tenderness. Lymphadenopathy: Cervical: No cervical adenopathy. Skin: General: Skin is warm and dry. Neurological: General: No focal deficit present. Mental Status: He is alert and oriented to person, place, and time. Psychiatric: Attention and Perception: Attention normal. Mood and Affect: Mood normal. Speech: Speech normal. Behavior: Behavior normal. Behavior is cooperative. Thought Content: Thought content normal. Cognition and Memory: Cognition normal. Judgment: Judgment normal. Assessment/Plan Valentin was seen today for hypertension and hyperlipidemia. Diagnoses and all orders for this visit: Essential hypertension - Comprehensive metabolic panel; Future Blood pressure at goal. Continue current regimen. Check CMP Class 1 obesity due to excess calories with serious comorbidity and body mass index (BMI) of 33.0 to 33.9 in adult He is obese. He would benefit from weight loss. He is exercising more. Did lose 8 lb from his last visit because he is more active now that his back is feeling better. He was congratulated and encouraged to continue. documented in this encounterOhio State Health SystemLuqit06-25-2024 Hospital Discharge instructions Patient Education 05/15/2024 13:41:01 [...] urethra. Follow these instructions at home: Take nooi-foi-phtnzfw and prescription medicines only as told by [...] provider. Document Revised: 05/26/2022 Document Reviewed: 05/26/2022 WikiYou Patient Education 2022 [employer]. Follow Up Care 03/20/2024 12:59:39 With:BILL FERRERA, LEAH Feliz, URL Address: [address] [facility] [address] When: Unknown [facility] 06-11-2024 History of Present illness Narrative* Sascha Sutton, DO - 05/01/2024 10:20 AM EDT Subjective SUBJECTIVE: Patient ID: Valentin Torre is a 69 y.o. male who presents for a Medicare Annual Wellness exam. HPI The following portions of the patient's history were reviewed and updated as appropriate: allergies, current medications, past family history, past medical history, past social history, past surgicalhistory and problem list. AWV FLOWSHEET : Lifestyle Assessment Do you smoke or use smokeless tobacco?: No If you smoke or use smokeless tobacco, are you ready to quit?: NA Are you exposed to secondhand smoke?: No On average, how many drinks of alcohol do you consume in a week?: None Do you exercise for 30 or more minutes on average at least 3 days a week?: Sometimes Do you have any tooth, denture, or oral problems?: No Do you snore or has anyone told you that you snore?: No Do you try to eat a balanced diet?: Yes Do you experience leakage of urine, also known as urinary incontinence?: Never Do you have difficulty performing any of these activities? (check all that apply): (!) Getting out of a chair, Walking Do you have difficulty performing any of these activities? (check all that apply): (!) Housekeeping Fall Risk Fall Risk Assessment Completed?: Yes Have you fallen in the past year?: No Are you worried about falling?: No Do you feel unsteady when standing or walking?: (!) Yes Risk Stratification: Moderate Risk Depression Screening Little interest or pleasure in doing things: Not at all Feeling down, depressed, or hopeless: Not at all Trouble falling or staying asleep, or sleeping too much: Not at all Feeling tired or having little energy: Not at all Poor appetite or overeating: Not at all Feeling bad about yourself - or that you are a failure or have let yourself or your family down: Not at all Trouble concentrating on things, such as reading the newspaper or watching television: Not at all Moving or speaking so slowly that other people could have noticed. Or the opposite - being so fidgety or restless that you have been moving around a lot more than usual: Not at all Thoughts that you would be better off , or of hurting yourself in some way: Not at all PEG Scale Safety Assessment Do you have throw rugs on the floor?: No Do you feel safe at your home?: Yes Do you feel unsteady when walking?: (!) Yes Are you having difficulty with driving?: No Do you have trouble seeing?: No What assistive device do you use? (check all that apply): (!) Cane Walker Hearing Assessment Do you strain or struggle to hear/understand conversations?: (!) Yes Do you have trouble hearing the television or radio when others do not?: (!) Yes Does your family ever voice concerns about your hearing?: (!) Yes Do you wear hearing aid/s?: (!) Yes Personal Health During the past 4 weeks, how would you rate your overall health?: (!) Fair Do you understand how to take all of your medications?: Yes How confident are you that you can control and manage most of your health problems?: (!) Somewhat confident In the past 12 months, how many times have you been hospitalized?: (!) One End of Life Planning Do you have a living will?: Yes Do you have a durable power of district attorney?: Yes Cognitive Screening Do you have trouble remembering or recalling facts or events?: (!) Yes Do family members or caregivers report that you have difficulty remembering things?: No Clock Drawing Test: Normal REVIEW OF SYSTEMS: Review of Systems Objective PHYSICAL EXAMINATION: Vitals: 05/01/24 1016 BP: 122/68 Weight: 96.4 kg (212 lb 9.6 oz) Height: 172.7 cm (5' 7.99 ) Physical Exam Assessment/Plan ASSESSMENT/PLAN Encounter Diagnoses Name Primary? Medicare annual wellness visit, subsequent Yes Screening for depression Health maintenance discussed. Depression screen was negative. At least 3 minute spent administering and discussing. Cognitive evaluation did not reveal any impairment. He has advanced directives in place. Return in about 1 year (around 05/01/2025). [facility] Discharge instructions Patient Education 03/20/2024 13:11:31 [...] (electrical nerve stimulation). ?For women, using a phlebotomist medical lab assistant to prevent urine leaks. This is a [...] right after experiencing incontinence. General instructions Take lrlm-ygi-jpsgzzt and prescription medicines only as told by [...] important. Where to find more information National [place] of Diabetes and Digestive and Kidney Diseases: www.niddk.nih.gov [place] [employer]: www.urologyhealth.org Contact a health care [...] provider. Document Revised: 06/12/2021 Document Reviewed: 06/12/2021 [employer]You Patient Education 2022 [employer]. 03/20/2024 13:11:28 Cancer Screening for Men Cancer [...] if anything looks unusual. Men with a bxdgoc-rvjk-osbigc risk for skin cancer may want to see a disaster or damage control specialist (service establishment attendant) for an annual body check. What are the benefits of screening? Cancer screening is done to look for cancer in the very early stages, before it spreads and becomesharder to treat and before you would start to notice symptoms. Finding cancer early improves the chances of successful treatment. It may save your life. Where to find more information [place] [employer] Society: www.cancer.org Centers for Disease Control and Prevention: www.cdc.gov National Cancer [place]: www.cancer.gov Contact a health care provider if: [...] provider. Document Revised: 04/05/2022 Document Reviewed: 10/03/2020 [employer]You Patient Education 2022 [employer]. 03/20/2024 13:11:20 Urinary Incontinence Urinary Incontinence Urinary [...] (electrical nerve stimulation). ?For women, using a phlebotomist medical lab assistant to prevent urine leaks. This is a [...] right after experiencing incontinence. General instructions Take pybg-owb-dormltk and prescription medicines only as told by [...] important. Where to find more information National [place] of Diabetes and Digestive and Kidney Diseases: www.niddk.nih.gov [place] [employer] Association: www.urologyhealth.org Contact a health care [...] provider. Document Revised: 06/12/2021 Document Reviewed: 06/12/2021 [employer]You Patient Education 2022 [employer]. 03/20/2024 13:11:17 Kidney Stones, Yuby-vd-Llpy Kidney Stones Kidney stones are rock-like masses [...] Follow these instructions at home: Medicines Take yleg-axx-tmgydiq and prescription medicines only as told by [...] provider. Document Revised: 07/12/2022 Document Reviewed: 07/12/2022 [employer]You Patient Education 2022 [employer]. Follow Up Care 03/16/2024 08:31:59 With:FRANCIS Jimenez APRN, Daria Lechuga, NEYMAR, URL Address: When: Unknown Comments:8 wk w/ PVR [facility] 03-21-2024 Evaluation note* Author Мария David [facility] Authored February 09, 2024 4:3 4pm 1. [...] follow-up for surgical consult with Dr. Khalil. [facility] Work Phone: 1(916) 725-904602-28-2024 Hospital Discharge instructions Patient Education 01/18/2024 09:34:25 [...] Follow these instructions at home: Medicines Take milw-oww-mqdcrus and prescription medicines only as told by [...] provider. Document Revised: 10/04/2022 Document Reviewed: 07/12/2022 [employer]You Patient Education 2022 [employer]. 01/18/2024 09:34:24 Lithotripsy Lithotripsy Lithotripsy is a [...] including vitamins, herbs, eye drops, creams, and mays-vuv-dingmlq medicines. Any problems you or family members [...] provider tells you to take them. Taking gscm-mhp-mpmunwu medicines, vitamins, herbs, and supplements. Tests You [...] provider. Document Revised: 10/04/2022 Document Reviewed: 07/12/2022 [employer]You Patient Education 2022 [employer]. Follow Up Care 01/03/2024 14:10:04 With:FLAVIO ONEAL, Zac De Oliveira, URL Address: [facility] [address], [place] [address]- When: Unknown [facility] 02-09-2024 Evaluation note* Encounter Date Diagnosis [...] issue: - Obtain release of information from [facility] for physical therapy notes - Schedule bilateral upper extremity EMG - Follow up in six weeks or after EMG completion Dec, Other Note: Patient h as a history of lupus, previous surgeries, and steroid injections in the knees. [employer] Other 02-07-2024 History of Present illness Narrative* Bharath Bolanosnthal, JODI - 12/28/2023 2:00 PM EST Patient presents [...] X-rays 3 views taken left foot at [facility] reveal fracture of the head of [...] may cancel that appointment. documented in this encounterHaw[facility] [id number] History of Present illness Narrative* Sascha Sutton, [...] Objective Physical Exam Exam conducted with a tabular typist present (Junior Collins MS III). Constitutional: Appearance: [...] views; Future - [facility] [place], [place]; Future Check x-ray of lumbar spine. [...] pain. Monitor portion sizes. 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[facility]) Follow up with business process specialist as directed Antiphospholipid syndrome ([facility]) Follow-up with specialist as directed. Cubital tunnel syndrome on right Can try an elbow pad to see if that helps. Consider ortho consult. Paresthesias Intermittent paresthesias on the left side of his neck. Possibly coming from cervical disc disease.Previous cervical CT scan reviewed and did show moderate degenerative disc disease with encroachment of the neural foramina. [facility] Hospital Discharge instructions Patient Education 09/19/2023 [...] include: ?8 oz (237 mL) of milk, nqlimox-rubopetuffya-ptdqb milk, and calcium- fortifiedfruit juice. Calcium-fortified means [...] ?Spinach (cooked), rhubarb, beets, sweet potatoes, and Armenian chard. ?Peanuts. ?Potato chips, gambian fries, and baked potatoes with skin on. ?Nuts and nut products. ?Chocolate. If you regularly take a diuretic medicine, make sure to eat at least 1 or 2 servings of fruits or vegetables that are high in potassium each day. These include: ?Avocado. ?Banana. ?[place], prune, carrot, or tomato juice. ?Baked potato. [...] magnesium, fish oil, or vitamin B6. Take sxye-ggx-yjjyjyj and prescription medicines only as told by [...] Casseroles. Pizza. Lasagna. Frozen meals. Potato chips. Eritrean fries. The items listed above may not [...] provider. Document Revised: 07/19/2022 Document Reviewed: 07/19/2022 WikiYou Patient Education 2022 [employer]. Follow Up Care 08/08/2023 12:11:26 With:FLAVIO ONEAL, Zac De Oliveira, URL Address: [facility] [address] , [place] [address]- [phone] When: Unknown [facility] 07-05-2023 Hospital Discharge instructions Follow Up Care 05/25/2023 15:06:06 With:FLAVIO ONEAL, Zac De Oliveira, URL Address: [facility] [address], [place] [address]- [phone] When: Unknown [facility]05-15[facility]2023 Hospital Discharge instructions Additional Instructions DISCHARGE INSTRUCTIONS FOR 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 4. ACTIVITY: You are advised to [...] bottle, follow the instructions on the bottle. [facility] is not responsible for incorrect prescription information provided by the patient during their visit. Do not stop your medications without consulting your health care provider. Please take the list with you to your next doctor's appointment.[facility] Work Phone: 1(798) 537-332004-30-2023 Chief complaint Narrative - Reported* VALENTIN TORRE is being seen for a consultation for chest pain. * 67-year-old gentleman seen in cardiology consultation at the request of Dr. Sutton following an episode of severe chest discomfort with left and right neck radiation that occurred at [facility] this past Tuesday with subsequent stress imaging performed after he was admitted at [place] that was reportedly unremarkable. Patient has since [...] with a heart catheterization sometime next week [facility] [address] DO Work Phone: 1(426) 784-627105-20-2022 NotePROCEDURE: XR SHOULDER RT 2V or > HISTORY: Unspecified fall COMPARISON: None. FINDINGS: BONES:Narrowing of the acromioclavicular joint without significant undersurface osteophytes. Narrowing of the glenohumeral joint without fracture or dislocation. SOFT TISSUES:No visible soft tissue swelling. EFFUSION:None visible. OTHER: Negative. IMPRESSION: 1. No acute bone abnormality. 2. Mild-moderate degenerative changes. Electronically authenticated by: PRIMO GALE Date: 2022-04-09 17:07[facility]05[facility] NotePROCEDURE: XR ELBOW RT MIN 3 VIEWS HISTORY: Unspecified fall COMPARISON: None. FINDINGS: BONES:Mild-moderate degenerative changes. No fracture, dislocation, bone lesion. SOFT TISSUES:No visible soft tissue swelling. EFFUSION:None visible. OTHER: Negative. IMPRESSION: 1. No acute bone abnormality of the right elbow. Electronically authenticated by: PRIMO GALE Date: 2022-04-09 16:53[facility] HospitalDis[facility] summary Author Gabi Almanzar [facility] Note Date/Time February 16, 2025 3:0 1pm [facility] [address] [place] [address] Discharge Summary Signed Patient: Valentin Torre MR#: [id number] : 1955 Acct:[id number] Age/Sex: 69 / M Adm Date: 5 Loc: Room: [address] [place] [address]: Gabi Almanzar MD Copies to: DO Gabi Strong MD~ Providers Date of Discharge: 02/16/25 Discharging Provider: Gabi Almanzar Primary Care Provider: Sascha Sutton Consults: 02/16/25 09:47 Consult to Cardiology Routine Comment: Consulting Provider: Rita Matt Reason For Exam: Chest pain Has Provider Been Notified: Yes Date of Notification: 02/16/25 Time of Notification: 09:56 Discharge Diagnosis (1) Atypical chest pain: (2) Frequent PVCs: (3) Essential hypertension: (4) Dyslipidemia: (5) Rheumatoid arthritis: Final Diagnosis Final Discharge Diagnosis: ABOVE Summary Hospital Course Hospital course: Patient is a 69 year old male with medical hx as listed below presented to ER due to chest pain. Pt states that he was bending down to fix his boot for his R ankle then sat back up again and twisted himself when he fell substernal chest snap sharp pain nonradiating, it does get worse with movement and deep inspiration. 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 ER, patient presented hemodynamically stable, initial troponin within normal limit, EKG normal sinus rhythm with no obvious acute ischemic changes, decision was made to keep her for observation. Cardiology was consulted and stated annabelle the fact that he had a cardiac catheterization less than 2 years ago with normal coronary arteries indicated that there should be no reason for further investigations. Musculoskeletal chest pain is diagnosed and the patient can utilize NSAID and expect improvementwithin few days. Does not need cardiac follow-up. Patient will be discharged today after cardiac clearance. I will send him on naproxen 250 mg p.o. with meals for a course of 5 days with PPI. He understands agrees with this plan of management Time Spent with Patient Time spent providing/coordinating discharge services (# min): 45 Discharge Plan Discharge Plan Patient Disposition: Home Activity: Ambulate as Tolerated Diet: Low-Fat and Low-Sodium Instructions: Know your Meds Prescriptions: New naproxen 250 mg tablet 250 mg PO BID PRN (Reason: pain) 3 Days Qty: 7 0RF Continued meloxicam 15 mg tablet See Rx Instructions .ROUTE .COMPLEX Qty: 30 0RF Dose Instruction: TAKE 1 TABLET BY MOUTH DAILY Rx Instructions: TAKE 1 TABLET BY MOUTH DAILY lisinopril-hydrochlorothiazide 20-12.5 mg Tablet 1 tab PO QAM Klor-Con/EF 25 mEq tablet, effervescent 25 meq PO BID tamsulosin [Flomax] 0.4 mg capsule 0.4 mg PO QPM Rx Instructions: administer 30 minutes after same meal each day until stone passes prednisolone acetate [Pred Forte] 1 % drops,suspension 1 drp Eye-Right TID PRN (Reason: iritis) aspirin [Adult Low Dose Aspirin] 81 mg tablet,delayed release (DR/EC) 81 mg PO DAILY leflunomide 10 mg tablet 10 mg PO QAM Patient Comments: TK 1 T PO QD leucovorin calcium 5 mg tablet 5 mg PO QWEEK Patient Comments: TK 1 T PO ONCE Q WEEK Rx Instructions: taken on sundays folic acid 1 mg tablet 1 mg PO BID montelukast 10 mg tablet 10 mg PO QPM Patient Comments: TK 1 T PO QD hydroxychloroquine 200 mg tablet 200 mg PO BID Patient Comments: TK 1 T PO BID methotrexate sodium 25 mg/mL solution 25 mg subcut QWEEK Patient Comments: INJECT 1 ML UNDER THE SKIN ONCE Q WEEK Rx Instructions: taken on saturdays simvastatin 20 mg Tablet 20 mg PO QPM tramadol 50 mg tablet 100 mg PO Q8H PRN (Reason: Pain) Qty: 0 0RF Patient Comments: TK 1 TO 2 TS PO TID acetaminophen 500 mg Tablet 1,000 mg PO BID-TID PRN (Reason: Pain) triamcinolone acetonide [Nasal Allergy] 55 mcg Aerosol,[place] 1 spray INTRANASAL DAILY carboxymethylcellulose sodium [Refresh Liquigel] 1 % Drops, Liquid Gel 1 drp Eye-Both DAILY PRN (Reason: dry eye(s)) fexofenadine-pseudoephedrine [Seema-D 24 Hour] 180-240 mg Tablet Extended Release 24 Hr 1 tab PO DAILY PRN (Reason: allergies) lidocaine [Lidoderm] 5 % adhesive patch,medicated 2 patch topical Q24H Qty: 30 0RF Rx Instructions: leave on most painful area for up to 12 hrs diclofenac sodium [Voltaren Arthritis Pain] 1 % gel 2 g topical QID Qty: 100 0RF Rx Instructions: apply to single elbow, wrist or hand; for hand includes palm/fingers/back of hand omeprazole 40 mg capsule,delayed release(DR/EC) 40 mg PO BID Rx Instructions: FreeTextSi capsule Orally bid; Note: Source Status: Taking; Provider: Anson Bravo ( ) methylprednisolone [Medrol (Nicolas)] 4 mg tablets,dose pack See Rx Instructions PO PER PKG DIR PRN (Reason: pain) Rx Instructions: orally per package directions PRN; PO PER PKG DIR primidone 50 mg tablet 100 mg PO QHS Discontinued omeprazole 20 mg capsule,delayed release(DR/EC) 40 mg PO QAM Patient Comments: TK 2 CS PO QD acetaminophen [Tylenol Extra Strength] 500 mg tablet 1,000 mg PO Q6HR PRN (Reason: fever or pain) Qty: 30 0RF methotrexate sodium (PF) 50 mg recon soln 50 mg .Route .weekly Continuity of Care Document Health Concerns: A [facility] screening has identified you as FRAIL or AT RISK FOR FRAILTY. This puts you at a higher risk for infection, illness, falls,and other injuries. Here are four ways to help you reduce your risk of frailty: 1. IDENTIFY EARLY SIGNS OF FRAILTY ? Discuss contributing factors and concerns with your doctor 2. BE ACTIVE ? Walking and light strengthening exercises will help reduce weakness 3. EAT WELL ? Aim for three healthy meals a day that are high in protein 4. THINK POSITIVE ? Keep your mind active by being sociable and continuing to learn References: Stay Strong: Four Ways to Beat the Frailty Risk https://www.[facility]/health/fwxfwxpc-sog-kcgawjoskg/grey-vvejie-ugvp- tlws-dm-cxil-xxk-xikzaxj-etza Exam Physical Exam Vital Signs: Temp Pulse Resp BP Pulse Ox O2 Del Method 97.8 F 74 16 145/81 H 97 Room Air 02/16/25 07:42 02/16/25 07:42 02/16/25 07:42 02/16/25 07:42 02/16/25 07:42 02/16/25 07:42 Diagnostic Studies Completed and Pending Studies Labs on day of discharge: 02/16/25 06:06: Corrected WBC 9.1, Uncorrected WBC Count 9.1, RBC 5.08, Hgb 16.0, Hct 46.5, MCV 91.6, MCH 31.5, MCHC 34.4, RDW 15.4 H, Plt Count 166, MPV 8.0, Neut % (Auto) 78.4, Lymph % (Auto) 11.0, [place] % (Auto) 9.6, Eos % (Auto) 0.7, Baso % (Auto) 0.3, Nucleat RBC Rel Count 0.1, Neut # (Auto) 7.1, Lymph # (Auto) 1.0, [place] # (Auto) 0.9 H, Eos # (Auto) 0.1, Baso # (Auto) 0.0, PHA Creatinine Clear 103.16, Sodium 135 L, Potassium 4.4, Chloride 106, Carbon Dioxide 20.6 L, Anion Gap 12.8, BUN 21, Creatinine 0.74, Est GFR (CKD-EPI) > 60.0, Glucose 85, Calcium 8.7, Total Bilirubin 0.8, AST 15, ALT 21, Alkaline Phosphatase 64, Troponin I High Sens 10, Total Protein 6.3 L, Albumin 4.1, Globulin 2.2, Albumin/Globulin Ratio 1.9 02/15/25 19:51: Troponin I High Sens 10 Documented By: Gabi Almanzar MD 02/16/25 1453 Signed By: <Electronically signed by Gabi Almanzar MD> 02/16/25 1502 [facility] Work Phone: Evaluation + Plan note Future Appointments Appointment Date:08/08/2023 11:45:00 AM Scheduled Provider:Zac MUNIZ MD Location:[facility] Appointment Type:URO Office Visit [facility] evaluation + Plan note Future Appointments Appointment Date:09/19/2023 09:30:00 AM Scheduled Provider:Zac MUNIZ MD Location:[facility] Appointment Type:URO Office Visit [facility] evaluation + Plan note Future Appointments Appointment Date:03/23/2024 08:15:00 AM Scheduled Provider:Zac MUNIZ MD Location:[facility] Appointment Type:URO Office Visit Diagnostic Tests Pending * Electrolyte Panel 09/19/23 [facility] evaluation + Plan note Future Appointments Appointment Date:03/23/2024 08:15:00 AM Scheduled Provider:Zac MUNIZ MD Location:[facility] Appointment Type:URO Office Visit [facility] Evaluation + Plan note Future Appointments Appointment Date:03/23/2024 08:15:00 AM Scheduled Provider:Zac MUNIZ MD Location:[facility] Appointment Type:URO Office Visit Diagnostic Tests Pending * Calculi Analysis [facility]ments Appointment Date:05/15/2024 09:30:00 AM Scheduled Provider:FRANCIS Jimenez APRN, [place] X Location:[facility] Appointment Type:URO Office Visit Appointment Date:09/03/2024 09:45:00 AM Scheduled Provider:Zac MUNIZ MD Location:[facility] Appointment Type:URO Office Visit [facility] evaluation + Plan note Future Appointments Appointment Date:09/03/2024 09:45:00 AM Scheduled Provider:Zac MUNIZ MD Location:[facility] Appointment Type:URO Office Visit [facility] evaluation + Plan note Future Appointments Appointment Date:06/12/2025 07:30:00 AM Scheduled Provider:Zac MUNIZ MD Location:[facility] Appointment Type:URO Procedure 15 min [facility] evaluation + Plan note Future Appointments Appointment Date:07/01/2025 08:45:00 AM Scheduled Provider: Location:[facility] Appointment Type:URO Nurse Visit Appointment Date:07/19/2025 08:00:00 AM Scheduled Provider:Zac MUNIZ MD Location:[facility] Appointment Type:URO Office Visit [facility] Evaluation noteNo assessment information available [facility] Work Phone: Evaluation note* Diagnosis Pronation deformity of both feet- [...] of lumbosacral spine acute Chronic pain acute [facility] Work Phone: Evaluation note* Diagnosis Onset Date [...] of lumbosacral spine acute Chronic pain acute [facility] Work Phone: evaluation note* Diagnosis Onset Date Resolution Status Chronic [...] of lumbosacral spine acute Chronic pain acute [facility] Work Phone: Evaluation note* Diagnosis Onset Date [...] of lumbosacral spine acute Chronic pain acute [facility] Work Phone: Evaluation note* Diagnosis Onset [...] of lumbosacral spine acute Chronic pain acute [facility] Work Phone: Evaluation note* Diagnosis Onset Date [...] of lumbosacral spine acute Chronic pain acute [facility] Work Phone: Evaluation note* Diagnosis Onset Date [...] of lumbosacral spine acute Chronic pain acute [facility] Work Phone: Evaluation note* Diagnosis Onset Date [...] pain acute Osteoarthritis of right hip acute [facility] Work Phone: Evaluation note* Diagnosis Onset Date [...] pain acute Osteoarthritis of right hip acute [facility] Work Phone: Evaluation note* Diagnosis Onset Date [...] acute Primary osteoarthritis of right hip acute [facility] Work Phone: Evaluation note* Diagnosis Onset Date [...] acute Cough acute Shortness of breath acute [facility] Work Phone: Evaluation note* Diagnosis Intention tremor- Primary Essential and other specified forms of tremor [facility] Diagnosis Pain due to onychomycosis of toenails of both feet- Primary Exostosis of both feet [facility] Diagnosis Exostosis of both feet- Primary Onychomycosis Dermatophytosis of nail Toe pain, bilateral [facility]* Diagnosis Essential hypertension- Primary Unspecified essential hypertension Hyperlipidemia, unspecified hyperlipidemia type Encounter for screening for malignant neoplasm of prostate [facility]* Diagnosis 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 Exostosis of both feet Pain due to onychomycosis of toenails of both feet [facility]* Diagnosis Thyroid nodule (CMS/HCC)- Primary Nontoxic uninodular goiter [facility]* Diagnosis Essential hypertension- Primary Unspecified essential hypertension Hyperlipidemia, unspecified hyperlipidemia type Intention tremor Essential and other specified forms of tremor 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[facility]) Unspecified diffuse connective tissue disease Antiphospholipid syndrome ([facility]) Primary hypercoagulable state Class 1 obesity due to excess calories with serious comorbidity and body mass index (BMI) of 33.0 to 33.9 in adult 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 Exostosis of both feet documented in this encounter [facility] HealthcareEvaluation note* Diagnosis Essential hypertension- Primary Unspecified essential hypertension Hyperlipidemia, unspecified hyperlipidemia type Midline low back pain without sciatica, unspecified chronicity Class 1 obesity due to excess calories with serious comorbidity and body mass index (BMI) of 33.0 to 33.9 in adult 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CMS-HCC) Unspecified diffuse connective tissue disease Antiphospholipid syndrome ([facility]) Primary hypercoagulable state Cubital tunnel syndrome on right Paresthesias Disturbance of skin sensation documented in this encounter [facility] SystemEvaluation note* Diagnosis Medicare annual wellness visit, subsequent- Primary Screening for depression documented in this encounter [facility]* Diagnosis Essential hypertension- Primary Unspecified essential hypertension Class 1 obesity due to excess calories with serious comorbidity and body mass index (BMI) of 33.0 to 33.9 in adult 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 Exostosis of both feet documented in this encounter [facility] HealthcareEvaluation note* Diagnosis 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 Skin fissure Other specified disorder of skin documented in this encounter [facility] HealthcareEvaluation note* Diagnosis Abrasion of anterior right lower leg, subsequent encounter- Primary Cellulitis of right lower extremity Contusion of right lower leg, subsequent encounter documented in this encounter [facility] note* Diagnosis Right leg weakness- Primary Muscle weakness (generalized) Fall, initial encounter Lumbosacral stenosis with neurogenic claudication Perforation of right tympanic membrane [facility]* Diagnosis Tenosynovitis of right lower leg- Primary 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 Xerosis cutis Other specified disease of sebaceous glands Su splint, right, initial encounter Contracture of right ankle documented in this encounter [facility] HealthcareEvaluation note* Diagnosis Xerosis cutis- Primary Other specified disease of sebaceous glands Tenosynovitis of right lower leg Su splint, right, initial encounter Contracture of right ankle documented in this encounter [facility]* Diagnosis Tenosynovitis of right lower leg- Primary Su splint, right, initial encounter 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 Contracture of right ankle Xerosis cutis Other specified disease of sebaceous glands documented in this encounter [facility] HealthcareEvaluation note* Diagnosis Other chest pain- Primary Thoracic region somatic dysfunction Nonallopathic lesion of thoracic region, not elsewhere classified Essential hypertension Unspecified essential hypertension documented in this encounter [facility] note* Diagnosis Piriformis syndrome of right side- Primary Intention tremor Essential and other specified forms of tremor documented in this encounter [facility] HealthcareEvaluation note* Diagnosis Tenosynovitis of right lower leg- Primary Su splint, right, initial encounter 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 Contracture of right ankle Xerosis cutis Other specified disease of sebaceous glands Pain due to onychomycosis of toenails of both feet documented in this encounter [facility] HealthcareEvaluation note* Diagnosis Lumbar radiculopathy- Primary Thoracic or lumbosacral neuritis or radiculitis, unspecified Pain of right lower leg documented in this encounter [facility] note* Diagnosis Medicare annual wellness visit, subsequent- Primary Screening for depression documented in this encounter [facility]Evaluation note* Diagnosis Intention tremor- Primary Essential and other specified forms of tremor Polyneuropathy Unspecified hereditary and idiopathic peripheral neuropathy documented in this encounter [facility] HealthcareEvaluation note* Diagnosis Moderate persistent asthma, unspecified whether complicated- Primary Class 2 severe obesity due to excess calories with serious comorbidity and body mass index (BMI) of 35.0 to 35.9 in adult ([facility]) [facility] Diagnosis Tenosynovitis of right lower leg documented in this encounter [facility] HealthcareEvaluation note* Diagnosis Hospital discharge follow-up- Primary Other follow-up examination Syncope, unspecified syncope type documented in this encounter [facility] general Narrative - Reported* Type Description Date [...] back surgery 2019 Hospitalization History See above [employer] Other History of Present illness Narrative* The [...] medication regimen. He denies medication side effects. -[facility] DO Work Phone: History of Present illness Narrative* Kali Conklin DPM - 12/06/2024 4:30 PM EST Patient: Valentin Torre : 1955 PCP: Sascha Sutton MD SUBJECTIVE This is a 69 y.o. male that presents today with a CC of aches and pains above feet and arch regionsand had orthotics in the past with some improvement but are old and unable to wear at this time. [place] saw physical therapy with history of some lower hip pain and states he has a limb length discrepancy Patient also has issues from time to time with swelling to his right foot particularly and bone spur on top of his right foot however only an issue when he has increased swelling to the foot. Patienttries to accommodate with shoe gear Patient presents today with a CC of elongated, thick nails. Pt states nails have been elongated and thick for many years and cause pain with ambulation in shoegear. Pt has tried previous treatment with minimal relief. Pt presents today for nail care and treatment. Allergies: Allergies Allergen Reactions Aspirin Buf(Gmzizm-Brcqby-Ban) Other Reaction(s): Other (See Comments), Unknown Abdominal [...] tablet, Take by mouth, Disp: , Rfl: benzonatate (Tessalon) 200 MG capsule, Three times daily as needed for cough, Disp: , Rfl: biotin 10 MG capsule, Take 1 capsule (10 mg) by mouth in the morning and 1 capsule (10 mg) before bedtime., Disp: 60 capsule, Rfl: 11 budesonide (Rhinocort AQ) 32 MCG/ACT nasal spray, 62,500 sprays, Disp: , Rfl: colchicine 0.6 MG tablet, , Disp: , Rfl: folic acid (Folvite) 1 MG tablet, folic [...] 50 MG/2ML syringe, , Disp: , Rfl: methylPREDNISolone (Medrol) 4 MG tablet, Take 4 mg by mouth in the morning. As needed only., Disp: , Rfl: montelukast (Singulair) 10 MG tablet, Take by mouth, Disp: , Rfl: nabumetone (Relafen) 750 MG tablet, Take 750 mg by mouth, Disp: , Rfl: omeprazole (PriLOSEC) [address] capsule, , Disp: , Rfl: potassium bicarbonate (K-Lyte) 25 MEQ effervescent tablet, Take by mouth, Disp: , Rfl: prednisoLONE acetate (Pred-Forte) 1 % ophthalmic suspension, , Disp: , Rfl: predniSONE (Deltasone) 20 MG tablet, , Disp: , Rfl: pseudoephedrine-guaiFENesin ER (Mucinex D) 60-600 MG 12 hr tablet, Take 1 tablet by mouth every 12 (twelve) hours, Disp: , Rfl: simvastatin (Zocor) 20 MG tablet, Take 20 [...] Resource Strain: Low Risk (04/14/2023) Received from [facility], [facility] Overall Financial Resource Strain (CARDIA) Difficulty of Paying Living Expenses: Not hard at all Food Insecurity: No Food Insecurity (09/24/2024) Received from [facility] Hunger Screening Within the past 12 months we worried whether our food would run out before we got money to buy more.: Never True Within the past 12 months the food we bought just didn't last and we didn't have money to get more.: Never True Transportation Needs: No Transportation Needs (04/14/2023) Received from [facility], [facility] PRAPARE - Transportation Lack of Transportation (Medical): No Lack of Transportation (Non-Medical): No Physical Activity: Inactive (05/01/2024) Received from [facility] Exercise Vital Sign Days of Exercise per Week: 0 days Minutes of Exercise per Session: 0 min Stress: No Stress Concern Present (04/14/2023) Received from [facility], [facility] [place] [facility] Occupational [facility] - Occupational Stress Questionnaire Feeling of Stress : Not at all Social Connections: Moderately Integrated (04/14/2023) Received from [facility], [facility] Social Connection and Isolation Panel [NHANES] Frequency of Communication with Friends and Family: Once a week Frequency of Social Gatherings with Friends and Family: Once a week Attends Yazidi Services: More than 4 times per year Active Member of Clubs or Organizations: Yes Attends Club or Organization Meetings: Never Marital Status: Intimate Partner Violence: Not on file Housing Stability: Low Risk (04/14/2023) Received from [facility], [facility] Housing Instability Are you worried or concerned [...] cuneiform joint bilaterally have positive bony exostosis VASC: Positive palpable pedal pulses bilaterally NEURO: Gross sensation intact to bilateral feet ORTHO: Positive pain on palpation to nails 1 through 10 Minimal pain to bony exostosis to bilateral feet Notable left leg longer than right leg of a proximally man-zyidnay-kcls ASSESSMENT 1. 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 Exostosis of both feet 3. Pain due to onychomycosis of toenails of both feet PLAN Pt to continue with accomodative shoe gear for foot swelling b/l Discussed proper foot care with patient today. Debride nails in length and thickness digits 1 through 10 Pt presents today for casting of a removable foot inserts/orthotics today that was accomplished with scanning of feet and sent to orthotics lab.(L3020 right and L3020 left foot). Pt to have signed ABN for device if needed. It was explained to the patient of a break in period for the devices. The patient is ambulatory maybenefit functionally for this device. It may be used for the following conditions as noted per EMR.Patient signed ABN for devices have a quarter-inch heel lift to the right leg the accommodate deformity with proximally [id number]-gxuicli-bbij. Will need to sign YADI in Kali Conklin DPM [facility] N[facility] * Kali Conklin DPM - 01/24/2025 11:20 AM EST Patient: Valentin Torre : 1955 PCP: Sascha Sutton MD SUBJECTIVE This is a 69 y.o. male that presents today with a CC of aches and pains above feet and arch regionsand had orthotics in the past with some improvement but are old and unable to wear at this time. Healverónica saw physical therapy with history of some lower hip pain and states he has a limb length discrepancy and presents today for possible orthotic fitting for LLD. Patient presents today for orthotic fitting Patient also presents today for follow-up of dry skin and fissures to feet and has been using prescribed or recommended uvhv-xes-zpmtxcj cream with improvement. Allergies: Allergies Allergen Reactions Aspirin Buf(Leeetu-Drfmoh-Hyu) Other Reaction(s): Other (See Comments), Unknown Abdominal [...] tablet, Take by mouth, Disp: , Rfl: benzonatate (Tessalon) 200 MG capsule, Three times daily as needed for cough (Patient not taking: Reported on 12/19/2024), Disp: , Rfl: biotin 10 MG capsule, Take 1 capsule (10 mg) by mouth in the morning and 1 capsule (10 mg) before bedtime., Disp: 60 capsule, Rfl: 11 budesonide (Rhinocort AQ) 32 MCG/ACT nasal spray, 62,500 sprays, Disp: , Rfl: colchicine 0.6 MG tablet, , Disp: , Rfl: folic acid (Folvite) 1 MG tablet, folic [...] 50 MG/2ML syringe, , Disp: , Rfl: methylPREDNISolone (Medrol) 4 MG tablet, Take 4 mg by mouth in the morning. As needed only. (Patient not taking: Reported on 12/19/2024), Disp: , Rfl: montelukast (Singulair) 10 MG [...] Rfl: primidone (Mysoline) 50 MG tablet, Take 2 tablets (100 mg) by mouth at bedtime, Disp: 60 tablet, Rfl: 11 pseudoephedrine-guaiFENesin ER (Mucinex D) 60-600 MG 12 hr tablet, Take 1 tablet by mouth every 12 (twelve) hours (Patient not taking: Reported on 12/19/2024), Disp: , Rfl: simvastatin (Zocor) 20 MG tablet, Take 20 mg by mouth at bedtime, Disp: , Rfl: tamsulosin (Flomax) 0.4 MG 24 hr capsule, Take 0.4 mg by mouth Daily, Disp: , Rfl: traMADol (Ultram) 50 MG tablet, Take by mouth, Disp: , Rfl: urea (Carmol) 40 % cream, Apply 1 application topically in the morning and 1 application before bedtime., Disp: 85 g, Rfl: 1 Social History: Social History Socioeconomic History Marital [...] Resource Strain: Low Risk (04/14/2023) Received from [facility], [facility] Overall Financial Resource Strain (CARDIA) Difficulty of Paying Living Expenses: Not hard at all Food Insecurity: No Food Insecurity (12/17/2024) Received from [facility] Hunger Screening Within the past 12 months we worried whether our food would run out before we got money to buy more.: Never True Within the past 12 months the food we bought just didn't last and we didn't have money to get more.: Never True Transportation Needs: No Transportation Needs (04/14/2023) Received from [facility], [facility] PRAPARE - Transportation Lack of Transportation (Medical): No Lack of Transportation (Non-Medical): No Physical Activity: Inactive (05/01/2024) Received from [facility] Exercise Vital Sign Days of Exercise per Week: 0 days Minutes of Exercise per Session: 0 min Stress: No Stress Concern Present (04/14/2023) Received from [facility], [facility] [place] [facility] [employer]ational Health - Occupational Stress Questionnaire Feeling of Stress : Not at all Social Connections: Moderately Integrated (04/14/2023) Received from [facility], [facility] Social Connection and Isolation Panel [NHANES] Frequency of Communication with Friends and Family: Once a week Frequency of Social Gatherings with Friends and Family: Once a week Attends Yazidi Services: More than 4 times per year Active Member of Clubs or Organizations: Yes Attends Club or Organization Meetings: Never Marital Status: Intimate Partner Violence: Not on file Housing Stability: Low Risk (04/14/2023) Received from [facility], [facility] Housing Instability Are you worried or [...] longer than right leg of a proximally [id number]-[id number]-[id number] Positive palpation right heel fissure ASSESSMENT 1. 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 Pronation deformity of both feet 3. Skin fissure PLAN Pt encouraged to continue with hydrating creams to feet with offer for medication and/or prescription refill. Pt was fitted for custom made orthotics today. Orthotics were deemed to fit appropriately and patient was informed of proper break in of devices. Patient education on break in of device. ABN signed and in chart if warranted. Patient to pay [id number] Kali Conklin DPM [facility] Narrative No data available for this section [facility] Hospital Discharge instructions No data available for this section [facility] Hospital Discharge instructions Additional Instructions [...] or concerns, do not hesitate to come back.[facility] Work Phone: Hospital Discharge instructions Additional [...] appointment to see your physician in two weeks.[facility] Work Phone: Hospital Discharge instructions Additional Instructions You were seen and evaluated in the ED for a musculoskeletal injury. It is important to treat your symptoms with RICE therapy. This consists of Resting when available, Icing the affected area, wearing Compression if applicable such as a sleeve or JOSEPH-bandage, and Elevating the affected extremity. Continue to use Tylenol and other anti-inflammatories such as ibuprofen, naproxen, diclofenac, etc It is very important that you follow up with your primary care provider in the next 1-2 days unless instructed to do otherwise. If you do not have a primary care provider, you can contact the [facility] orthopaedic clinic and ask about being established for primary care services. If you require specialist follow up, such as with an orthopedic physician, patient care nursing assistant, urologist, or other medical specialty, you should contact the specialty clinic as soon as possible to schedule a follow up appointment. If you are established with a specialist, you can contact your preferred physician for follow up. If you are not already established with the specialist you need, you may have contact information provided to you with these discharge instructions. If you are being prescribed medications, take exactly as prescribed. Antibiotics, if prescribed, should be taken until the entire course is completed. You should not have left over antibiotics. Continue to take any previously prescribed home medications unless instructed otherwise. If you are experiencing fever or mild to moderate pain, you should first take Tylenol or ibuprofen available [id number]. Medications, if prescribed to treat pain from the emergency department, are intended to provide relief for severe pain that is not relieved by other methods of pain relief, you should use these medications cautiously as many are known to cause sedation/sleepiness, increased risk for falls, and other effects such as constipation. If your symptoms worsen please return to the ED or if you have any other concerns[facility] Work Phone: InstructionsNot on filedocumented in this encounter [facility] this [facility] on filedocumented in this encounter [facility] on filedocumented in this encounter [facility] on filedocumented in this encounter [facility] on filedocumented in this encounter [facility] on filedocumented in this encounter [facility] on filedocumented in this encounter [facility] on filedocumented in this encounter [facility] on filedocumented in this encounter [facility] on filedocumented in this encounter [facility] on filedocumented in this encounter [facility] on filedocumented in this encounter [facility] on filedocumented in this encounter [facility]ructionsNot on filedocumented in this encounter [facility]* Attachments The following attachments cannot be sent through Care Everywhere. * Syncope (fainting) Discharge instructions ([place]i) documented in this [facility] No data available for this section [facility] reason for referral (narrative)* Consultation (Routine) - Authorized Specialty Diagnoses / Procedures Referred By Jd jiménez Referred To Contact Rehabilitation Diagnoses Midline low back pain without sciatica, unspecified chronicity Sascha Sutton DO [address], [facility] [place] [address] [facility] [address] [place] [address] Referral ID Status Reason Start Date Expiration Date Visits Requested Visits Authorized [id number] Authorized Specialty Services Required 12/14/2023 12/13/2024 1 1 [facility] Summary Purpose Family History No Family History Records Found Relationship Condition Age at Onset Recorded Date/T [...] Unknown brother Diabetes mellitus Unknown Advance Directives No Advanced Directives Records Found Advance Directive Response Recorded Date/ Time Advance Directives No May 12 3:30am Advance Directive Response Recorded Date/ Time Advance Directives No May 12 2:30am Advance Directive Response Recorded Date/ Time Advance Directives Yes January 29, 3:03pm Advance Directive Response Recorded Date/ Time Advance Directives Yes May 28 2:11pm Advance Directive Response Recorded Date/ Time Advance Directives Yes June 27 2:59pm Advance Directive Response Recorded Date/ Time Advance Directives Yes January 29 2:03pm Chief Complaint and Reason for Visit [...] 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 MCKENZIE KHALIL MARÍA LUMBAR [...] LEFT CERVICAL FACET RFA C3 C4 /VW Jul 3:01pm F/U LEFT CERVICAL FACET RFA August [...] September 19, 2024 9 :04am Chief Complaint Admit Date *[place] INTRA-ARTICULAR HIP JOINT September 05, 2024 12:12pm cough September 19, 2024 9 :04am R05.9 R06.02 September 19, 2024 9 :42am M35.00 z79.899 m15.0 October 10, 2024 9:55am 6 WEEKS AFTER T FELTER HIP JOINT INJECTI ON October 17, 2024 8:46am M16.11 M25.351 M25.551 November 05 9:47am MRI RESULTS November 09, 2024 10:51am 4 MONTHS November 26, 2024 9: 44am Bursitis R hip November 26, 2024 10 :15am Reason for Visit Admit Date Cough September 19, 2024 9 :04am Shortness of breath September 19, 2024 9 :04am Primary osteoarthritis of right hip Nove mber 2023 8:46am Greater trochanteric bursitis of right h ip November 09, 2024 10:51am Primary osteoarthritis of right hip Dece 2023 10:51am Arthritis of facet joint of cervical spi ne November 26, 2024 9:44am Arthritis of lumbosacral spine November 262024 9:44am Chronic pain November 26, 2024 9: 44am Osteoarthritis of right hip November 26, 2024 9:44am Chief Complaint Admit Date cough September 19, 2024 9 :04am R05.9 R06.02 September 19, 2024 9 :42am M35.00 z79.899 m15.0 October 10, 2024 9:55am 6 WEEKS AFTER T FELTER HIP JOINT INJECTI ON October 17, 2024 8:46am M16.11 M25.351 M25.551 November 05 9:47am MRI RESULTS November 09, 2024 10:51am 4 MONTHS November 26, 2024 9: 44am Z12.5 E78.5 I10 December 07, 2024 8 :16am Bursitis R hip December 07, 2024 1 0:30am Chief Complaint Admit Date 6 WEEKS AFTER T FELTER HIP JOINT INJECTI ON October 17, 2024 8:46am M16.11 M25.351 M25.551 November 05 9:47am MRI RESULTS November 09, 2024 10:51am 4 MONTHS November 26, 2024 9: 44am Z12.5 E78.5 I10 December 07, 2024 8 :16am Bursitis R hip January 11, 2025 9:45am right knee pain after fall December 10:56am Reason for Visit Admit Date Primary osteoarthritis of right hip [facility] [facility] 8:46am Greater trochanteric bursitis of right h ip November 09, 2024 10:51am Primary osteoarthritis of right hip [facility] 2023 10:51am Arthritis of facet joint of cervical spi ne November 26, 2024 9:44am Arthritis of lumbosacral spine November 262024 9:44am Chronic pain November 26, 2024 9: 44am Osteoarthritis of right hip November 26, 2024 9:44am Chief Complaint Admit Date 6 WEEKS AFTER T FELTER HIP JOINT INJECTI ON October 17, 2024 8:46am M16.11 M25.351 M25.551 November 05 9:47am MRI RESULTS November 09, 2024 10:51am 4 MONTHS November 26, 2024 9: 44am Z12.5 E78.5 I10 December 07, 2024 8 :16am Bursitis R hip January 11, 2025 9:45am right knee pain after fall December 10:56am sent by January 12, 2025 12:45pm Reason for Visit Admit Date Primary osteoarthritis of right [facility] 2023 8:46am Greater trochanteric bursitis of right h ip November 09, 2024 10:51am Primary osteoarthritis of right hip [facility] 2023 10:51am Arthritis of facet joint of cervical spi ne November 26, 2024 9:44am Arthritis of lumbosacral spine November 262024 9:44am Chronic pain November 26, 2024 9: 44am Osteoarthritis of right hip November 26, 2024 9:44am Fall January 12, 2025 10:56am Chief Complaint Admit Date 6 WEEKS AFTER T FELTER HIP JOINT INJECTI ON October 17, 2024 8:46am M16.11 M25.351 M25.551 November 05 9:47am MRI RESULTS November 09, 2024 10:51am 4 MONTHS November 26, 2024 9: 44am Z12.5 E78.5 I10 December 07, 2024 8 :16am Bursitis R hip January 11, 2025 9:45am right knee pain after fall December 10:56am sent by January 12, 2025 12:45pm See order January 14, 2025 8:43am Chief Complaint Admit Date M16.11 M25.351 M25.551 November 05 9:47am MRI RESULTS November 09, 2024 10:51am 4 MONTHS November 26, 2024 9: 44am Z12.5 E78.5 I10 December 07, 2024 8 :16am right knee pain after fall December 10:56am sent by January 12, 2025 12:45pm See order January 14, 2025 8:43am Bursitis R hip January 24, 2025 8:15 am S80.811D January 25, 2025 2:00 pm Reason for Visit Admit Date Greater trochanteric bursitis of right h ip November 09, 2024 10:51am Primary osteoarthritis of right hip [facility] 2023 10:51am Arthritis of facet joint of cervical spi ne November 26, 2024 9:44am Arthritis of lumbosacral spine November 262024 9:44am Chronic pain November 26, 2024 9: 44am Osteoarthritis of right hip November 26, 2024 9:44am Fall January 12, 2025 10:56am Chief Complaint Admit Date 4 MONTHS November 26, 2024 9: 44am Z12.5 E78.5 I10 December 07, 2024 8 :16am right knee pain after fall December 10:56am sent by January 12, 2025 12:45pm See order January 14, 2025 8:43am Bursitis R hip January 24, 2025 8:15 am S80.811D January 25, 2025 2:00 pm 3 MONTHS February 08, 2025 9:0 0am Reason for Visit Admit Date Arthritis of facet joint of cervical spi ne November 26, 2024 9:44am Arthritis of lumbosacral spine November 262024 9:44am Chronic pain November 26, 2024 9: 44am Osteoarthritis of right hip November 26, 2024 9:44am Fall January 12, 2025 10:56am Greater trochanteric bursitis of right h ip February 08, 2025 9:00am Iliotibial band syndrome, right leg [facility] 2024 9:00am Primary osteoarthritis of right hip [facility] 2024 9:00am Chief Complaint Admit Date 4 MONTHS November 26, 2024 9: 44am Z12.5 E78.5 I10 December 07, 2024 8 :16am right knee pain after fall December 10:56am sent by January 12, 2025 12:45pm See order January 14, 2025 8:43am Bursitis R hip January 24, 2025 8:15 am S80.811D January 25, 2025 2:00 pm 3 MONTHS February 08, 2025 9:0 0am chest pain February 15, 2025 11: 58am Reason for Visit Admit Date Arthritis of facet joint of cervical spi ne November 26, 2024 9:44am Arthritis of lumbosacral spine November 262024 9:44am Chronic pain November 26, 2024 9: 44am Osteoarthritis of right hip November 26, 2024 9:44am Fall January 12, 2025 10:56am Greater trochanteric bursitis of right h ip February 08, 2025 9:00am Iliotibial band syndrome, right leg [facility] 2024 9:00am Primary osteoarthritis of right hip [facility] 2024 9:00am Atypical chest pain February 15, 2025 11: 58am Dyslipidemia February 15, 2025 11: 58am Essential hypertension February 15, 2025 11:58am Frequent PVCs February 15, 2025 11: 58am Rheumatoid arthritis February 15, 2025 11 :58am Chief Complaint Admit Date 4 MONTHS November 26, 2024 9: 44am Z12.5 E78.5 I10 December 07, 2024 8 :16am right knee pain after fall December 10:56am sent by January 12, 2025 12:45pm See order January 14, 2025 8:43am Bursitis R hip January 24, 2025 8:15 am S80.811D January 25, 2025 2:00 pm 3 MONTHS February 08, 2025 9:0 0am chest pain February 15, 2025 11: 58am RECHECK February 21, 2025 7:52 am Reason for Visit Admit Date Arthritis of facet joint of cervical spi ne November 26, 2024 9:44am Arthritis of lumbosacral spine November 262024 9:44am Chronic pain November 26, 2024 9: 44am Osteoarthritis of right hip November 26, 2024 9:44am Fall January 12, 2025 10:56am Greater trochanteric bursitis of right h ip February 08, 2025 9:00am Iliotibial band syndrome, right leg Sourav h 2024 9:00am Primary osteoarthritis of right hip [facility] h 2024 9:00am Atypical chest pain February 15, 2025 11: 58am Dyslipidemia February 15, 2025 11: 58am Essential hypertension February 15, 2025 11:58am Frequent PVCs February 15, 2025 11: 58am Rheumatoid arthritis February 15, 2025 11 :58am Arthritis of facet joint of cervical spi ne February 21, 2025 7:52am Arthritis of lumbosacral spine February 7:52am Chronic pain February 21, 2025 7:52 am Osteoarthritis of right hip February 21, 025 7:52am Chief Complaint Admit Date Z12.5 E78.5 I10 December 07, 2024 8 :16am right knee pain after fall December 10:56am sent by January 12, 2025 12:45pm See order January 14, 2025 8:43am Bursitis R hip January 24, 2025 8:15 am S80.811D January 25, 2025 2:00 pm 3 MONTHS February 08, 2025 9:0 0am chest pain February 15, 2025 11: 58am RECHECK February 21, 2025 7:52 am Reason for Visit Admit Date Fall January 12, 2025 10:56am Greater trochanteric bursitis of right h ip [...] 7:52 am Osteoarthritis of right hip February 21 7:52am Chief Complaint Admit Date right knee pain after fall December 10:56am sent by January 12, 2025 12:45pm See order January 14, 2025 8:43am Bursitis R hip January 24, 2025 8:15 am S80.811D January 25, 2025 2:00 pm 3 MONTHS February 08, 2025 9:0 0am chest pain February 15, 2025 11: 58am RECHECK February 21, 2025 7:52 am R bursitis of right hip March 26, 2025 9: 45am F.U MARÍA LUMBAR RFA March 27, 2025 7:47am Reason for Visit Admit Date Fall January 12, 2025 10:56am Greater trochanteric bursitis of right h ip [...] 7:52 am Osteoarthritis of right hip February 21 7:52am Arthritis of facet joint of cervical spi ne March 27, 2025 7:47am Arthritis of lumbosacral spine March 27, 2025 7:47am Chronic pain March 27, 2025 7:47am Osteoarthritis of right hip March 27 7:47am Chief Complaint Admit Date Bursitis R hip January 24, 2025 8:15 am S80.811D January 25, 2025 2:00 pm 3 MONTHS February 08, 2025 9:0 0am chest pain February 15, 2025 11: 58am RECHECK February 21, 2025 7:52 am F.U MARÍA LUMBAR RFA March 27, 2025 7:47am R bursitis of right hip April 09, 2025 1 0:30am M76.31 - Iliotibial band syndrome, right leg April 10, 2025 8:56am 2 MONTHS April 10, 2025 9:30a m Reason for Visit Admit Date Greater [...] am Osteoarthritis of right hip February 21, 2 025 7:52am Arthritis of facet joint of cervical [...] of right knee April 10, 2025 9:30am Chief Complaint Admit Date Bursitis R hip [...] :00am soof April 18, 2025 9:08a m Chief Complaint Admit Date 3 MONTHS February 08, 2025 9:0 0am chest pain February 15, 2025 11: 58am RECHECK February 21, 2025 7:52 am F.U MARÍA LUMBAR RFA March 27, 2025 7:47am M76.31 - Iliotibial band syndrome, right leg April 10, 2025 8:56am 2 MONTHS April 10, 2025 9:30a m R bursitis of right hip April 18, 2025 8 :00am soof April 18, 2025 9:08a m R06.02 R06.00 35.9 Z79.899 May 01 7:28am R06.02 R06.00 35.9 Z79.899 May 01 10:25pm Chief Complaint * Routine f/u: 'heart stuart [...] region without neurogenic claudication (M48.061) Referral Organization [facility] u[facility] Referring Provider First Name Мария Referring Provider Last Name David Referring Provider Specialty Nurse Pract itioner Referred Organization [facility] Referred Provider Primo Jenkins Referred Address [address] [place],[phone] Referred Provider Specialty Neurology Referral Priority Routine [...] section and content) DATE CREATED AUTHOR 05/09/2018 [facility] DATE CREATED AUTHOR AUTHOR'S ORGANIZ ATION 05/10/2018 [facility] DATE CREATED AUTHOR AUTHOR'S ORGANIZ ATION 03/29/2023 [facility] DATE CREATED AUTHOR AUTHOR'S ORGANIZ ATION 04/01/2023 [employer] DATE CREATED AUTHOR AUTHOR'S ORGANIZ ATION 04/05/2023 [facility] DATE CREATED AUTHOR AUTHOR'S ORGANIZ ATION 12/18/2023 [facility] DATE CREATED AUTHOR AUTHOR'S ORGANIZ ATION 02/20/2024 [facility] DATE CREATED AUTHOR AUTHOR'S ORGANIZ ATION 05/16/2025 [facility] EPIC DATE CREATED AUTHOR AUTHOR'S ORGANIZ ATION 05/25/2025 [facility] DATE CREATED AUTHOR AUTHOR'S ORGANIZ ATION 06/13/2025 [facility] DATE CREATED AUTHOR AUTHOR'S ORGANIZ ATION 06/13/2025 [facility] Care Teams (unrecognized sec tion and content) [...] Team Status: Inactive Member Role Status Radha Lazcanong , DO Primary Care Provider Active Start: May 28, 2024 End: May 28, 2024 Edenilson Mcleod MD Attending Provider Active Sta rt: May 28, 2024 End: May 28, 2024 Team Status: Inactive Member Role Status Dates Carlos Eden DO Attending Provider Active S tart: May 30, 2024 End: May 30, 2024 Team Status: Active Member Role Status Dates Sascha Cynthiacierra DO Primary Care Provider Active Start: May [...] Cynthiacierra , DO Primary Care Provider Active Adam Davis MD Attending Provider Active Team Status: Active Member Role Status Dates Sascha Cynthiacierra , DO Primary Care Provider Active Team Status: Inactive Member Role Status Dates Sascha Cynthiacierra , DO Primary Care Provider Active Christine Sanchez NP-C Attending Provider Active Team Status: Inactive Member Role Status Dates Sascha Cynthiacierra , DO Primary Care Provider Active KARIN Madrigal Attending Provider Active Team Status: Inactive Member Role Status Dates Sascha Cynthiacierra , DO Primary Care Provider Active Melanie Trujillo DO Attending Provider Active Team Status: Inactive Member Role Status Dates Sascha Cynthiacierra , DO Primary Care Provider, Attending Simba [...] Status: Inactive Member Role Status Dates Sascha Cynthiacristoferng , DO Primary Care Provider Active Christine Sanchez RED LEAD BURNER-C Attending Provider Active Zac Muniz MD Referring [...] December 08, 2023 End: December 08, 2023 Team Status: Inactive Member Role Status Dates Sascha Sutton DO Primary Care Provide r, Attending Provider Active Start: December 15, 2023 End: December 15, 2023 Bag End Sewer Relationship Specialty Start Date End Date Sascha Sutton MD [address] [facility], [place] [address] PCP - General Family Medicine 12/28/23 Team [...] Provider Active S tart: September 19, 2024 Team Status: Inactive Member Role Status Dates Sascha Sutton DO Primary Care Provider Active Start: October 10, 2024 End: October 10, 2024 Romel Davis MD Attending Provider Active art: October 10, 2024 End: October 10, 2024 Bag End Sewer Relationship Specialty Start Date End Date Sascha Sutton MD [address], [place] [address] PCP - General Family Medicine 12/28/23 Mckenzie Khalil MD [address], [place] [address] Referring Physician Neurosurgery 06/13/24 Carlos Eden DO [address] [place] [address] Otolaryngology 06/13/24 Bag End Sewer Relationship Specialty Start Date End Date Sascha Sutton MD [address], [place] [address] PCP - General Family Medicine 12/28/23 Mckenzie Khalil MD [address], [place] [address] Referring Physician Neurosurgery 06/13/24 Carlos Eden DO [address] [place] [address] Otolaryngology 06/13/24 Bag End Sewer Relationship Specialty Start Date End Date Sascha Sutton MD [address], [place] [address] PCP - General Family Medicine 12/28/23 Mckenzie Khalil MD [address], [place] [address] Referring Physician Neurosurgery 06/13/24 Carlos Eden DO [address] [place] [address] Otolaryngology 06/13/24 Bag End Sewer Relationship Specialty Start Date End Date Sascha Sutton MD [address], [place] [address] PCP - General Family Medicine 12/28/23 Mckenzie Khalil MD [address] [place] [address] [address] [place] [address] Referring Physician Neurosurgery 06/13/24 Carlos Eden DO [address] [place] [address] Otolaryngology 06/13/24 Bag End Sewer Relationship Specialty Start Date End Date Sascha Sutton MD [address], [place] [address] PCP - General Family Medicine 12/28/23 Mckenzie Khalil MD [address] [place] [address] [address] [place] [address] Referring Physician Neurosurgery 06/13/24 Carlos Eden DO [address] [place] [address] Otolaryngology 06/13/24 Bag End Sewer Relationship Specialty Start Date End Date Sascha Sutton DO [address], [place] [address] PCP - General Family Medicine 09/23/22 Team Status: Inactive Member Role Status Dates Jaime Murcia II, MD Attending Provider Active Start: October 17, 2024 End: October 17, 2024 Sascha CynthiacristoferDO osmani Primary Care Provider Active Start: October 17, 2024 End: October 17, 2024 Team Status: Inactive Member Role Status Dates Sascha DO Herman Primary Care Provider Active Start: November 05, 2024 End: November 05, 2024 Jaime Murcia II, MD Attending Provider Active Start: November 05, 2024 End: November 05, 2024 Team Status: Inactive Member Role Status Dates Sascha Sutton DO Primary Care Provider Active Start: November 09, 2024 End: November 09, 2024 Jaime Murcia II, MD Attending Provider Active Start: November 09, 2024 End: November 09, 2024 Team Status: Inactive Member Role Status Dates Edenilson Mcleod MD Attending Provider Active Sta rt: November 26, 2024 End: November 26, 2024 Sascha CynthiacristoferDO osmani Primary Care Provider Active Start: November 26, 2024 End: November 26, 2024 Team Status: Active Member Role Status Dates Sascha Sutton DO Primary Care Provider Active Start: November 26, 2024 Jaime Murcia II, MD Attending Provider Active Start: November 26, 2024 Bag End Sewer Relationship Specialty Start Date End Date Sascha Sutton MD [address], [facility] [place] [address] PCP - General Family Medicine 12/28/23 Mckenzie Khalil MD [address], [facility] [place] [address] Referring Physician Neurosurgery 06/13/24 Carlos Eden DO [address] [place] [address] Otolaryngology 06/13/24 Team Status: Inactive Member Role Status Dates Sascha Sutton DO Primary Care Provide r, Attending Provider Active Start: December 07, 2024 End: December 07, 2024 Team Status: Active Member Role Status Dates Sascha Sutton DO Primary Care Provider Active Start: December 07, 2024 Jaime Murcia II, MD Attending Provider Active Start: December 07, 2024 Bag End Sewer Relationship Specialty Start Date End Date Sascha Sutton MD [address], [place] [address] PCP - General Family Medicine 12/28/23 Mckenzie Khalil MD [address], [place] [address] Referring Physician Neurosurgery 06/13/24 Carlos Eden DO [address] [place] [address] Otolaryngology 06/13/24 Bag End Sewer Relationship Specialty Start Date End Date Sascha Sutton MD [address], [place] [address] PCP - General Family Medicine 12/28/23 Mckenzie Khalil MD [address], [place] [address] Referring Physician Neurosurgery 06/13/24 Carlos Eedn DO [address] [place] [address] Otolaryngology 06/13/24 Bag End Sewer Relationship Specialty Start Date End Date Sascha Sutton DO [address], [place] [address] PCP - General Family Medicine 09/23/22 Bag End Sewer Relationship Specialty Start Date End Date Sascha Sutton MD [address], [place] [address] PCP - General Family Medicine 12/28/23 Mckenzie Khalil MD [address], [place] [address] Referring Physician Neurosurgery 06/13/24 Carlos Eden DO [address] [place] [address] Otolaryngology 06/13/24 Bag End Sewer Relationship Specialty Start Date End Date Sascha Sutton MD [address], [place] [address] PCP - General Family Medicine 12/28/23 Mckenzie Khalil MD [address] [place] [address] [address] [place] [address] Referring Physician Neurosurgery 06/13/24 Carlos Eden DO [address] [place] [address] Otolaryngology 06/13/24 Bag End Sewer Relationship Specialty Start Date End Date Sascha Sutton DO [address], [place] [address] PCP - General Family Medicine 09/23/22 Bag End Sewer Relationship Specialty Start Date End Date AquilesSascha keen DO [address], [place] [address] PCP - General Family Medicine 09/23/22 Bag End Sewer Relationship Specialty Start Date End Date AquilesSascha keen DO [address] [place] [address] PCP - General Family Medicine 09/23/22 Bag End Sewer Relationship Specialty Start Date End Date HermanSascha [address] [place] [address] PCP - General Family Medicine 09/23/22 Bag End Sewer Relationship Specialty Start Date End Date AquilesSascha keen [address], [place] [address] PCP - General Family Medicine 09/23/22 Bag End Sewer Relationship Specialty Start Date End Date CynthiacristoferSascha keen [address], [place] [address] PCP - General Family Medicine 09/23/22 Bag End Sewer Relationship Specialty Start Date End Date HermanSascha [address] [place] [address] PCP - General Family Medicine 09/23/22 Bag End Sewer Relationship Specialty Start Date End Date HermanSascha [address] [place] [address] PCP - General Family Medicine 09/23/22 Bag End Sewer Relationship Specialty Start Date End Date Sascha Sutton MD [address], [place] [address] PCP - General Family Medicine 12/28/23 Mckenzie Khalil MD [address] [place] [address] Referring Physician Neurosurgery 06/13/24 Carlos Eden DO [address] [place] [address] Otolaryngology 06/13/24 Bag End Sewer Relationship Specialty Start Date End Date Sascha Sutton MD [address], [facility] [place] [address] PCP - General Family Medicine 12/28/23 Mckenzie Khalil MD [address] [place] [address] Referring Physician Neurosurgery 06/13/24 Carlos Eden DO [address] [place] [address] Otolaryngology 06/13/24 Team Status: Active Member Role Status Dates Sascha Sutton DO Primary Care Provider Active Start: January 11, 2025 Jaime Murcia II, MD Attending Provider Active Start: January 11, 2025 Team Status: Inactive Member Role Status Dates Sascha Sutton DO Primary Care Provider Active Start: January 12, 2025 End: January 12, 2025 Myriam Fonseca APRN Attending Provider Active S tart: January 12, 2025 End: January 12, 2025 Team Status: Inactive Member Role Status Dates Sascha Sutton DO Primary Care Provider Active Start: January 12, 2025 End: January 12, 2025 Matthew Harrell PA-C Emergency Provider Active Start: January 12, 2025 End: January 12, 2025 Team Status: Inactive Member Role Status Dates Sascha Sutton DO Primary Care Provider Active Start: January 14, 2025 End: January 14, 2025 Romel Davis MD Attending Provider Active St art: January 14, 2025 End: January 14, 2025 Bag End Sewer Relationship Specialty Start Date End Date Sascha Sutton MD [address], [facility] [address] PCP - General Family Medicine 12/28/23 Mckenzie Khalil MD [address] [place] [address] [address] [place] [address] Referring Physician Neurosurgery 06/13/24 Carlos Eden DO [address] [place] [address] Otolaryngology 06/13/24 Bag End Sewer Relationship Specialty Start Date End Date Sascha Sutton DO [address], [facility] [place] [address] PCP - General Family Medicine 09/23/22 Bag End Sewer Relationship Specialty Start Date End Date Sascha Sutton DO [address], [facility] [place] [address] PCP - General Family Medicine 09/23/22 Bag End Sewer Relationship Specialty Start Date End Date Sascha Sutton MD [address], [place] [address] PCP - General Family Medicine 01/30/25 Mckenzie Khalil MD [address] [place] [address], [address] [address] Referring Physician Neurosurgery 06/13/24 Carlos Eden DO [address] [place] [address] Otolaryngology 06/13/24 Bag End Sewer Relationship Specialty Start Date End Date Sascha Sutton MD [address] [place], [facility] [place] [address] PCP - General Family Medicine 01/30/25 Mckenzie Khalil MD [address] [place] [address] Referring Physician Neurosurgery 06/13/24 Carlos Eden DO [address] [place] [address] Otolaryngology 06/13/24 Team Status: Active Member Role Status Dates Sascha Sutton DO Primary Care Provider Active Start: January 24, 2025 Jaime Murcia II, MD Attending Provider Active Start: January 24, 2025 Team Status: Inactive Member Role Status Dates Sascha Sutton DO Primary Care Provide r, Attending Provider Active Start: January 25, 2025 End: January 25, 2025 Bag End Sewer Relationship Specialty Start Date End Date Sascha Sutton MD [address], [place] [address] PCP - General Family Medicine 01/30/25 Mckenzie Khalil MD [address] [place] [address], [address] [address] Referring Physician Neurosurgery 06/13/24 Carlos Eden, [address] [place] [address] Otolaryngology 06/13/24 Bag End Sewer Relationship Specialty Start Date End Date Sascha Sutton MD [address] [facility] [place] [address] PCP - General Family Medicine 01/30/25 Mckenzie Khalil MD [address] [place] [address], [address] [address] Referring Physician Neurosurgery 06/13/24 Carlos Eden, [address] [place] [address] Otolaryngology 06/13/24 Team Status: Inactive Member Role Status Dates Sascha Sutton DO Primary Care Provider Active Start: February 08, 2025 End: February 08, 2025 Jaime Murcia II, MD Attending Provider Active Start: February 08, 2025 End: February 08, 2025 Team Status: Active Member Role Status Dates Sashca Sutton DO Primary Care Provider Active Start: February 15, 2025 Martha Gomes MD Emergency Provider Active Start: February 15, 2025 Marley Dumont MD Admit Provider, A ttending Provider Active Start: February 15, 2025 Team Status: Inactive Member Role Status Dates [...] February 15, 2025 End: February 16, 2025 Team Status: Inactive Member Role Status Dates Sascha Sutton DO Primary Care Provider Active Start: February 21, 2025 End: February 21, 2025 Edeinlson Mcleod MD Attending Provider Active Sta rt: February 21, 2025 End: February 21, 2025 Bag End Sewer Relationship Specialty Start Date End Date Sascha Sutton MD [address] [facility] [place] [address] PCP - General Family Medicine 01/30/25 Mckenzie Khalil MD [address] [place] [address] Referring Physician Neurosurgery 06/13/24 Carlos Eden DO [address] [place] [address] Otolaryngology 06/13/24 Bag End Sewer Relationship Specialty Start Date End Date Sascha Sutton MD [address] [facility] [place] [address] PCP - General Family Medicine 01/30/25 Mckenzie Khalil MD [address] [place] [address], [address] [address] Referring Physician Neurosurgery 06/13/24 Carlos Eden DO [address] [place] [address] Otolaryngology 06/13/24 Bag End Sewer Relationship Specialty Start Date End Date Sascha Sutton DO [address], [place] [address] PCP - General Family Medicine 09/23/22 Team Status: Inactive Member Role Status Dates Sascha Sutton DO Primary Care Provider Active Start: January 24, 2025 End: January 24, 2025 Jaime Murcia II, MD Attending Provider Active Start: January 24, 2025 End: January 24, 2025 Bag End Sewer Relationship Specialty Start Date End Date Sascha Sutton DO [address], [place] [address] PCP - General Family Medicine 09/23/22 Bag End Sewer Relationship Specialty Start Date End Date Sascha Sutton MD [address], [place] [address] PCP - General Family Medicine 01/30/25 Mckenzie Khalil MD [address] [place] [address] [address] [place] [address] Referring Physician Neurosurgery 06/13/24 Carlos Eden DO [address] [place] [address] Otolaryngology 06/13/24 Bag End Sewer Relationship Specialty Start Date End Date Sascha Sutton MD [address], [place] [address] PCP - General Family Medicine 01/30/25 Mckenzie Khlail MD [address] [place] [address], [address] [place] [address] Referring Physician Neurosurgery 06/13/24 Carlos Eden DO [address] [place] [address] Otolaryngology 06/13/24 Bag End Sewer Relationship Specialty Start Date End Date Sascha Sutton MD [address] [facility] [place] [address] PCP - General Family Medicine 01/30/25 Mckenzie Khalil MD [address] [place] [address], [address] [place] [address] Referring Physician Neurosurgery 06/13/24 Carlos dEen, [address] [place] [address] Otolaryngology 06/13/24 Team Status: Active Member Role Status Dates Sascha Sutton DO Primary Care Provider Active Start: March 13, 2025 Edenilson Mcleod MD Attending Provider Active Sta rt: March 13, 2025 Team Status: Active Member Role Status Dates Sascha Sutton DO Primary Care Provider Active Start: March 26, 2025 Jaime Murcia II, MD Attending Provider Active Start: March 26, 2025 Team Status: Inactive Member Role Status Dates Sascha Sutton DO Primary Care Provider Active Start: March 27, 2025 End: March 27, 2025 Edenilson Mcleod MD Attending Provider Active Sta rt: March 27, 2025 End: March 27, 2025 Team Status: Active Member Role Status Dates Sascha Sutton DO Primary Care Provider Active Start: April 09, 2025 Jaime Murcia II, MD Attending Provider Active Start: April 09, 2025 Team Status: Inactive Member Role Status Dates Sascha Sutton DO Primary Care Provider Active Start: April 10, 2025 End: April 10, 2025 Jaime Murcia II, MD Attending Provider Active Start: April 10, 2025 End: April 10, 2025 Team Status: Active Member Role Status Dates Sascha Sutton DO Primary Care Provider Active Start: April 18, 2025 Jaime Murcia II, MD Attending Provider Active Start: April 18, 2025 Team Status: Inactive Member Role Status Dates Sascha Sutton DO Primary Care Provider Active Start: April 18, 2025 End: April 18, 2025 Romel Davis MD Attending Provider Active St art: April 18, 2025 End: April 18, 2025 Team Status: Inactive Member Role Status Dates Sascha Sutton DO Primary Care Provider Active Start: May 01, 2025 End: May 01, 2025 WILLOW Paul Attending Provider Active Start: May 01, 2025 End: May 01, 2025 Team Status: Active Member Role Status Dates Sascha Sutton DO Primary Care Provider Active Start: May 01, 2025 WILLOW Paul Other Provider Active St art: May 01, 2025 Dante Simmons MD Attending Provider Active Start: May 01, 2025 Bag End Sewer Relationship Specialty Start Date End Date Sascha Sutton MD [address] [facility], [facility] [place] [address] PCP - General Family Medicine 01/30/25 Mckenzie Khalil MD [address] [place] [address], [address] [place] [address] Referring Physician Neurosurgery 06/13/24 Carlos Eden DO [address] [place] [address] Otolaryngology 06/13/24 Bag End Sewer Relationship Specialty Start Date End Date Sascha Sutton DO [address], [place] [address] PCP - General Family Medicine 09/23/22 Bag End Sewer Relationship Specialty Start Date End Date Sascha Sutton DO [address], [place] [address] PCP - General Family Medicine 09/23/22 Goals [...] this encounterNot on filedocumented as of this encounter No data available for this sectionNot on filedocumented as of this encounterNot on filedocumented as of this encounterNot on filedocumented as of this encounterNot on filedocumented as of this encounter No data available for this section Reason for Visit (unrecogniz ed section and content) Reason Comments Foot Orthotics Reason Comments Toenail Care Non dm nail care Reason Comments Follow-up Went to pt for hip p ain, says one leg is shorter Reason Comments Thyroid Nodule 6 month johnathan US Reason Comments Hypertension Hyperlipidemia Sinus-3 days Reason Comments MAW Reason Comments Med Refill Reason Comments Hypertension Hyperlipidemia Reason Comments Cough Reason Comments Cough Lost voice Reason Comments Foot Orthotics 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 [facility] [employer] [facility]. provides no warranty or guarantee of the accuracy or completeness of information in this document.
[2025-06-14 09:10] LABS: INR 1.02; Partial Thromboplastin Time 29.2 sec (22.3-36.2); Prothrombin Time 10.8 sec (9.0-11.6)
== END 2025-06-14 07:36 | disposition home or self-care (01) ==
LOC: PST 07:35
PROVIDERS: PCP Family Medicine; Visit Provider Urology
DX: Z01.812 Encounter for preprocedural laboratory examination (principal); N40.1 Benign prostatic hyperplasia with lower urinary tract symptoms
CPT/HCPCS: 80048; 85610; 85730

== ENCOUNTER 2025-07-14 13:56 | Emergency (ER) | payer MEDICARE, SELFPAY ==
[2025-07-14] VITALS (23 sets, daily range): BP systolic 124–144; BP diastolic 68–107; PULSE 61–77; TEMP 36.3; O2SAT 94–97; BMI 31.9
--- OUTSIDE RECORDS SUMMARY | 2025-07-14 14:06 | XMS_ITS | Encounter Summary ---
Author Organization [email or web address] Address [id number] [address] [place] [address] Care Team Providers Care Labor Trainer Name Role Phone Sascha Larsen Primary Care Provider + [phone] Encounter Details Date Type Department Care Team (Late st Contact Info) Description 12/07/2024 Orders Only [facility] - Family Medicine [address] [place] [address] Minerva Saini CMA Encounter for screening for malignant neoplasm of prostate; Hyperlipidemia, unspecified hyperlipidemia type; Essential hypertension Social History Tobacco Use Types Packs/Day Years Used Date Smoking Tobacco: Former Cigarettes Passive Smoke Exposure: Past Smokeless Tobacco: Never Alcohol Use Standard Drinks/Week Comments Not Currently 0 (1 standard drink = 0.6 oz pur e alcohol) [facility] Utilities Answer Date Recorded In the [...] Answer Date Recorded Total Score 0 09/24/2024 [facility] [place] of Occupat ional Health - Occupational Stress [...] Internal Medicine - Family Medicine [address] [place] [address] documented as of this encounter [...] ORDERABLES Final R esult Performing Organization Address City/[facility]/ZIP Co de Phone Number MANUALLY TRANSCRIBED RESULTS * Prostatic specific antigen screen (12/07/2024) PSA 2.510 ng/mL MANUALLY TRANSCRIBED RESULTS 12/07/2024 us Sascha Larsen DO LAB BLOOD ORDERABLES Final R esult Performing Organization Address City/[facility] Co de Phone Number MANUALLY TRANSCRIBED RESULTS documented in this encounter Visit Diagnoses Diagnosis Encounter for screening for malignant neoplasm of prostate Hyperlipidemia, unspecified hyperlipidemia type Essential hypertension Unspecified essential hypertension documented in this encounter Additional Health Concerns Assessment Noted Time PHQ-9 Depression Total Score: 0 09/24/20 24 1:35 PM EST documented as of this encounter Care Teams Labor Trainer Relationship Specialty Start Date End Date Sascha Larsen DO [address], [facility] [place] [place] [address] PCP - General Family Medicine 09/23/22 documented as of this encounter
--- OUTSIDE RECORDS SUMMARY | 2025-07-14 14:06 | XMS_ITS | Clinical Summary ---
Author Organization [facility] Address [address], [address] [place] [address] Care Team Providers Care Workforce Advisor Name Role Phone AquilesSascha keen Primary Care Provider Allergies Active Allergy Reactions Criticality Noted Date Comments Aspirin Buf(Yejgpu-Frqxyj-Uan) Other (See Comments) 10/13/2015 Abdominal pain Cephalosporins [...] 3:04 PM 05/20/2014 4:06 PM Care Teams Workforce Advisor Relationship Specialty Start Date End Date Sascha Larsen DO [address] [place] [address] PCP - General 05/08/14
--- OUTSIDE RECORDS SUMMARY | 2025-07-14 14:06 | XMS_ITS | Clinical Summary ---
Author Organization [employer] Address [id number] [address] [place] [address] Care Team Providers Care Ic Designer Custom Name Role Phone Sascha Larsen DO Primary Care Provider [phone] Allergies Active Allergy Reactions Criticality Noted Date [...] AQUA) 32 mcg/actuation nasal spray 62,500 sprays. Act gaurav insulin syringe-needle U-100 1 mL 31 gauge x 5/16 syringe Active loratadine (CLARITIN) 10 mg tabletIndications: Allergic rhinitis Take 1 tablet (10 mg total) by mouth in the morning. 30 tablet 03/28/20 23 Active Additional Information Patient not taking.Reported on 06/11/2025 KLOR-CON/EF 25 mEq disintegrating tablet Take 1 [...] bedtime. 10.2 g 5 05/28/20 25 Active Active Problems Problem Noted Date Diagnosed Date Hospital discharge follow-up 06/11/2025 Syncope 06/11/2025 Thoracic region somatic dysfunction 02/25/2025 Intention tremor [...] Encounters Date Type Department Care Team Description 07/08/2025 Orders Only [facility] - Family Medicine [address] [place] [address] Ref Prov, Not In System 07/01/2025 Orders Only [facility] - Family Medicine [address] [place] [address] Ref Prov, Not In System 06/11/2025 2:00 PM EDT Office Visit [facility] - Family Medicine [address] [place] [address] Erick Orlando, [facility] discharge follow-up (Primary Dx); Syncope, unspecified syncope type 06/11/2025 Travel 06/10/2025 Orders Only [facility] - Family Medicine [address] [place] [address] Ref Prov, Not In System 05/28/2025 2:45 PM EDT Office Visit [facility] - Family Medicine [address] [place] [address] Sascha Larsen, DO Moderate persistent asthma, unspecified whether complicated (Primary Dx); Class 2 severe obesity due to excess calories with serious comorbidity and body mass index (BMI) of 35.0 to 35.9 in adult ([facility]) 05/28/2025 Travel 05/27/2025 Refill [facility] - Family Medicine [address] [place] [address] Sascha Larsen, 05/07/2025 9:40 AM EDT Office Visit [facility] - Family Medicine [address] [place] [address] Sascha Larsen, DO Medicare annual wellness visit, subsequent (Primary Dx); Screening for depression 05/07/2025 Travel 04/16/2025 4:45 PM EDT Office Visit [facility] [address] [facility] [place] [address] Sascha Larsen DO Lumbar radiculopathy (Primary Dx); Pain of right lower leg 04/16/2025 Travel from Last 3 Months Immunizations Immunization [...] drink = 0.6 oz pur e alcohol) [facility] Utilities Answer Date Recorded In the past 12 months has th e electric, gas, oil, or water company [...] PHQ-2 Answer Date Recorded Total Score 0 06/11/2025 [facility] [place] of Occupat ional Health - Occupational Stress [...] Recorded Do you need help finding a [facility] and/or a training program? No 04/14/2023 Hunger Screening Answer Date Recorded Within the past 12 months we worried whether our food would run out before we got money to buy more. Never True 06/11/2025 Within the past 12 months th e food we bought just didn't last and we didn't have money to get more. Never True 06/11/2025 Purpose - Life Answer Date Recorded I have a purpose and direction in my life. Stron gly Agree 04/14/2023 Sex and Gender Information Value Date Recorded Sex Assigned at Not on file Legal Sex Male 11:34 AM EDT Gender Identity Not on file Sexual Orientation Not on file Last Filed Vital Signs Vital Sign Reading Time Taken Comments Blood Pressure 110/68 06/11/2025 1:57 PM EDT Pulse 73 06/11/2025 1:57 PM EDT Temperature 37.1 C (98.8 F) 06/11/2025 1:57 PM EDT Respiratory Rate 20 06/11/2025 1:57 PM EDT Oxygen Saturation 96% 06/11/2025 1:57 PM EDT Inhaled Oxygen Concentration - - Weight 100.2 kg (221 lb) 06/11/2025 1:57 PM EDT Height 170.2 cm (5' 7.01 ) 06/11/2025 1:57 PM ED T Body Mass Index 34.61 06/11/2025 1:57 PM EDT Plan of Treatment Upcoming Encounters Date Type Department Care Team (Late st Contact Info) Description 05/13/2026 10:20 AM EDT Office Visit [facility] - Family Medicine [address] [place] [address] Health Maintenance Due Date Last Done Comments Abdominal Aortic Aneurysm (A AA) Screen 2022 COVID-19 Vaccine (3 - Pfizer risk series) 09/20/2023 08/23/2023, 10/08/2022, 10/08/2022 Influenza Vaccine 07/22/2025 11/03/2024, , 12/05/2022, Additional history exists Medicare Annual Wellness Visit 05/07/2026 0 05/07/2025, 05/01/2024, 04/14/2023 Adult BMI Follow Up Plan 05/28/2026 05/28/2025 Adult BMI Screening 06/11/2026 06/11/2025 Depression Screening 06/11/2026 06/11/2025 Fall Risk Screening 06/11/2026 06/11/2025 Tobacco Screening 06/11/2026 06/11/2025 Colonoscopy 06/15/2027 06/15/2017 DTaP,Tdap and Td Vaccines (3 - Td or Tdap) 05/20/2033 05/20/2023, 12/05/2012 Zoster (Shingles) Vaccine Completed 08/26/2019, 05/2019 Medical Devices Not on file Procedures Procedure Name Priority Date/Time Associated Diagnosis Comments XR CHEST 1 VW Routine 06/07/2025 11:[address] BRAIN WO CONT Routine 06/07/2025 11:3 4 AM EDT PULMONARY FUNCTION TEST Routine 05/01/2025 3:50 PM EDT PULMONARY FUNCTION TEST Routine 05/01/2025 1:36 PM EDT HM COLONOSCOPY Routine 06/15/2017 7:42 AM EDT from Last 3 Months or Most Recently Relevant to Health Maintenance Results * X-ray chest 1 view (06/07/2025 11:41 AM EDT) Anatomical Region Laterality Modality Body, Chest N/A Computed Radiogr aphy us Not In System Ref Prov IMG DIAGNOSTIC IMAGING OR DERABLES Final Result * CT brain without contrast (06/07/2025 11:34 AM EDT) Anatomical Region Laterality Modality Neuro, Head, Head and Neck, Neuro Covera N/A Computed Tomography us Not In System Ref Prov IMG CT ORDERABLES Final R esult * Pulmonary function test (05/01/2025 3:50 PM EDT) us Not In System Ref Prov PFT ORDERABLES Final Res ult MANUALLY TRANSCRIBED RESULTS * Pulmonary function test (05/01/2025 1:36 PM EDT) us Not In System Ref Prov PFT ORDERABLES Final Res ult Performing Organization Address City/[facility]/ZIP Co de Phone Number MANUALLY TRANSCRIBED RESULTS * HM COLONOSCOPY (06/15/2017 7:42 AM EDT) us Scanning Provider External HEALTH MAINTENANCE Fi nal Result MANUALLY TRANSCRIBED RESULTS from Last 3 Months or Most Recently Relevant to Health Maintenance Insurance MEDICARE [facility] Care Teams Ic Designer Custom Relationship Specialty Start Date End Date Sascha Larsen DO [address] [facility] [place] [address] PCP - General Family Medicine 09/23/22
--- OUTSIDE RECORDS SUMMARY | 2025-07-14 14:06 | XMS_ITS | Encounter Summary ---
Author Organization [facility] Address [address] [place] [address] Phone Care Team Providers Care Emergency Care Attendant Name Role Phone Sascha Larsen DO Primary Care Provider Encounter Details Date Type Department Care Team (Late st Contact Info) Description 02/16/[address] [facility] [address] [place] [phone] Scanning, Generic Provider Social History Tobacco Use [...] Care Team (Late st Contact Info) Description 09/17/2025 8:00 AM EDT Office Visit [facility] [address] [facility] [address] [place] [address] Germaine Mas, SPECIAL NEEDS BUS DRIVER-COMPLAINT ADJUSTER [address] [facility] [address] [place] [address] documented as of this encounter Visit Diagnoses Not on filedocumented in this encounter Care Teams Emergency Care Attendant Relationship Specialty Start Date End Date Sascha Larsen DO PCP - General 03/30/23 documented as of this encounter
--- OUTSIDE RECORDS SUMMARY | 2025-07-14 14:06 | XMS_ITS | Encounter Summary ---
Author Organization [facility] Address [address] [place] [address] Phone Care Team Providers Care Shroudman Name Role Phone Sascha Larsen DO Primary Care Provider Encounter Details Date Type Department Care Team (Late st Contact Info) Description 04/18/2025 Scanned Document [facility] [address] [place] [phone] Scanning, Generic Provider Social History Tobacco Use [...] Description 09/17/2025 8:00 AM EDT Office Visit [facility] [address] [facility] [address] [place] [address] Germaine Mas, AIRPLANE PILOT-FILTER FILLER [address] [facility] [address] [place] [address] documented as of this encounter Visit Diagnoses Not on filedocumented in this encounter Care Teams Shroudman Relationship Specialty Start Date End Date Sascha Larsen DO PCP - General 03/30/23 documented as of this encounter
--- OUTSIDE RECORDS SUMMARY | 2025-07-14 14:06 | XMS_ITS | Encounter Summary ---
Author Organization [employer] Address [id number] [address] [place] [address] Care Team Providers Care Wastewater Supervisor Name Role Phone Sascha Larsen Primary Care Provider + [phone] Encounter Details Date Type Department Care Team (Late st Contact Info) Description 02/17/2024 Orders Only [facility] Internal [facility] - Family Medicine [address] [place] [address] External, Scanning Provider Social History Tobacco Use [...] week 04/14/2023 How often do you attend [facility] or adventist services? More than 4 times per year 04/14/2023 Do you belong to any clubs o r organizations such as bahai groups, unions, fraternal or athletic groups, or [...] Answer Date Recorded Total Score 3 12/14/2023 [facility] of Occupat ional Health - Occupational Stress [...] - Family Medicine [address] [place] [address] documented as of this encounter Procedures Procedure [...] documented as of this encounter Care Teams Wastewater Supervisor Relationship Specialty Start Date End Date Sascha Larsen DO [address], [place] [address] PCP - General Family Medicine 09/23/22 documented as of this encounter
--- OUTSIDE RECORDS SUMMARY | 2025-07-14 14:06 | XMS_ITS | Encounter Summary ---
Author Organization [employer] Address [id number] [address] [place] [address] Care Team Providers Care Medical Billing Assistant Name Role Phone Sascha Larsen Primary Care Provider + [phone] Encounter Details Date Type Department Care Team (Late st Contact Info) Description 11/23/2024 Telephone [facility] - Family Medicine [address] [place] [address] AlanAlly edward, RAMIRO Social History Tobacco Use Types Packs/Day Years Used Date Smoking Tobacco: Former Cigarettes Passive Smoke Exposure: Past Smokeless Tobacco: Never Alcohol Use Standard Drinks/Week Comments Not Currently 0 (1 standard drink = 0.6 oz pur e alcohol) [facility] Utilities Answer Date Recorded In the past 12 months has [employer] gas, oil, or water company threatened to [...] any clubs o r organizations such as alevism groups, unions, fraternal or athletic groups, or [...] Answer Date Recorded Total Score 0 09/24/2024 [facility] [place] of Occupat ional Health - Occupational Stress [...] Do you need help finding a [facility] and/or a training [...] her lab order sent to [facility] so they have their results for their upcoming appts documented in this encounter Plan of Treatment Upcoming Encounters Date Type Department Care Team (Late st Contact Info) Description 05/13/2026 10:20 AM EDT Office Visit [facility] - Family Medicine [address] [place] [phone] documented as of this encounter Visit Diagnoses Not on filedocumented in this encounter Additional Health Concerns Assessment Noted Time PHQ-9 Depression Total Score: 0 09/24/20 24 1:35 PM EST documented as of this encounter Care Teams Medical Billing Assistant Relationship Specialty Start Date End Date Sascha Larsen DO [address], [place] [address] PCP - General Family Medicine 09/23/22 documented as of this encounter
--- OUTSIDE RECORDS SUMMARY | 2025-07-14 14:06 | XMS_ITS | Encounter Summary ---
Author Organization [facility] Address [address] [facility] [place] [address] Care Team Providers Care Director Retirement Name Role Phone Arsenio Loera MD Unavailable Carlos Eden DO Unavailable [phone] Sascha Larsen MD Primary Care Provider [phone] Encounter Details Date Type Department Care Team (Late st Contact Info) Description 07/28/2024 Abstract [facility] [address] [place] [address] Zandra Echevarria MA Social History Tobacco Use [...] Care Team (Late st Contact Info) Description 07/17/2025 2:00 PM EDT Office Visit [facility] [address] [facility] [address] [place] [address] Phoebe Connell, DIRECTOR OF CORPORATE RESPONSIBILITY [address], [facility] [address] [place] [address] 09/16/2025 9:00 AM EDT Office Visit [facility] [place] [facility] [address] [place] [address] Junito Taylor MD [address] [facility] [address] [address] 09/19/2025 11:50 AM EDT Procedure Visit [facility] [address] [facility] [address] [place] [phone] Kali Terrazas, DPEduard [address] [facility] [place] [address] [place] [address] 12/18/2025 1:45 PM EST Office Visit [facility] [place] [facility] [address] [place] [phone] Carlos Eden DO [address] [place] [address] documented as of this encounter Visit Diagnoses Not on filedocumented in this encounter Care Teams Director Retirement Relationship Specialty Start Date End Date Sascha Larsen MD [address] [place] [address] PCP - General Family Medicine 01/30/25 Arsenio Loera MD [address] [place] [address] [address] [place] [address] Referring Physician Neurosurgery 06/13/24 Carlos Eden DO [address] [place] [address] Otolaryngology 06/13/24 documented as of this encounter
--- OUTSIDE RECORDS SUMMARY | 2025-07-14 14:06 | XMS_ITS | Encounter Summary ---
Author Organization [employer] Address [facility][id number] [address] [place] [address] Care Team Providers Care Shift Supervisor Name Role Phone Sascha Larsen Primary Care Provider + [phone] Encounter Details Date Type Department Care Team (Late st Contact Info) Description 01/29/2025 Orders Only [facility] - Family Medicine [address] [place] [address] Ref Prov, [place] [address] Social History Tobacco Use Types Packs/Day Years Used Date Smoking Tobacco: Former Cigarettes Passive Smoke Exposure: Past Smokeless Tobacco: Never Alcohol Use Standard Drinks/Week Comments Not Currently 0 (1 standard drink = 0.6 oz pur e alcohol) [facility] Utilities Answer Date Recorded In the past 12 months has [employer], gas, oil, or water [employer] threatened to shut off services in your [...] often do you attend chur ch or congregation services? More than 4 times per year [...] Answer Date Recorded Total Score 0 01/25/2025 [facility] - Occupational Stress Questionnaire Answer Date Recorded [...] Recorded Do you need help finding a [facility] and/or a training program? [...] - Family Medicine [address] [place] [address] documented as of this encounter Procedures Procedure [...] documented as of this encounter Care Teams Shift Supervisor Relationship Specialty Start Date End Date Sascha Larsen DO [address] [place] [address] PCP - General Family Medicine 09/23/22 documented as of this encounter
--- OUTSIDE RECORDS SUMMARY | 2025-07-14 14:06 | XMS_ITS | Encounter Summary ---
Author Organization [facility] Address [address] [place] [address] Phone Care Team Providers Care Jerker Name Role Phone Sascha Larsen DO Primary Care Provider Encounter Details Date Type Department Care Team (Late st Contact Info) Description 05/03/2023 Orders Only [facility] [address] [place] [address] Conversion, Onbase Social History Tobacco Use Types [...] Description 09/17/2025 8:00 AM EDT Office Visit [facility] [address] [facility] [address] [place] [phone] Germaine Mas, INTEGRATION MANAGER-WOOD PATTERNMAKER [address] [facility] [address] [place] [address] Scheduled Orders Name Type Priority Associated Diagnoses Orde r Schedule OUTSIDE LAB SCAN Lab Ordered: 05/03/2023 documented as of this encounter Visit Diagnoses Not on filedocumented in this encounter Care Teams Jerker Relationship Specialty Start Date End Date Sascha Larsen DO PCP - General 03/30/23 documented as of this encounter
--- OUTSIDE RECORDS SUMMARY | 2025-07-14 14:06 | XMS_ITS | Clinical Summary ---
Author Organization [facility] Address [address] [place], [place] [id number] Care Team Providers Care Aircraft Maintenance Manager Name Role Phone Unavailable Primary Care Provider [...]
--- OUTSIDE RECORDS SUMMARY | 2025-07-14 14:06 | XMS_ITS | Encounter Summary ---
Author Organization [facility] Address [address] [place] [address] Phone Care Team Providers Care Ingot Stripper Name Role Phone Sascha Larsen Primary Care Provider Encounter Details Date Type Department Care Team (Late st Contact Info) Description 06/28/2025 Results Follow-Up [facility] 703 [facility] [address] [place] [address] Alfonso Trujillo DO 703 [facility] 2, [address] [place] [address] Carotid Artery Duplex Ultrasoun Social History Tobacco Use Types Packs/Day Years [...] encounter Miscellaneous Notes * Telephone Encounter - Valeria Adan RN - 07/01/2025 10:46 AM EDT Result Communication Resulted Orders Carotid Artery Duplex Ultrasoun Narrative [facility] Main [place] [address] [place] [address] Ultrasound Report Signed Patient: Valentin Wong MR#: [id number] 29 : 1955 Acct:[id number] Age/Sex: 70 / M ADM Date: 06/25/25 Loc: Room: Type: [facility] Attending Dr: Melanie Trujillo DO Ordering Provider: Melanie Trujillo DO Date of Service: 06/25/25 US/US carotid doppler BI: [id number] Copies to: Melanie Trujillo DO CAROTID DUPLEX INDICATION: Syncope PROCEDURE: Color-flow duplex scanning is used to interrogate the extracranial carotid arterial system, as well as both vertebral arteries. The proximal right internal carotid artery shows a highest peak systolic velocity of 79.5 cm/s with an end-diastolic velocity of 13.7 cm/s . The mid internal carotid artery measures 91.3 cm/s peak systolic with an end-diastolic velocity of 20.5 cm/s . The distal segment measures 140 cm/s peak systolic with an end diastolic velocity of 33.8 cm/s . The velocities of the right common carotid artery are 137 cm/s peak systolic and 22 cm/s end- diastolic proximally and 114 cm/s peak systolic and 21.1 cm/s end-diastolic distally. The peak systolic velocity ratio of the internal to the common carotid artery is 1.02 . The right external carotid artery measures 133 cm/s peak systolic. The right vertebral artery is patent at 60.9 cm/s peak systolic and with antegrade flow. The proximal left internal carotid artery shows a highest peak systolic velocity of 75 cm/s with an end-diastolic velocity of 18.2 cm/s . The mid internal carotid artery measures 94.6 cm/s peak systolic with an end-diastolic velocity of 28 cm/s . The distal segment measures 127 cm/s peak systolic with an end diastolic velocity of 36.4 cm/s . The velocities of the left common carotid artery are 155 cm/s peak systolic and 22.3 cm/s end-diastolic proximally and 133 cm/s peak systolic and 23.1 cm/s end-diastolic distally. The peak systolic velocity ratio of the internal to the common carotid artery is 0.82 . The left external carotid artery measures 124 cm/s peak systolic. The left vertebral artery is patent at 78.3 cm/s peak systolic with antegrade flow. US/US carotid doppler BI IMPRESSION: NO HEMODYNAMICALLY SIGNIFICANT STENOSIS OF EITHER EXTRACRANIAL INTERNAL CAROTID ARTERY. BOTH VERTEBRAL ARTERIES ARE PATENT WITH ANTEGRADE FLOW. Impression dictated by: Audie Griffin M.D. 06/26/2025 8:47 AM [facility] Tech: Мария Artis Transcribed By: MARV 06/26/25846 Dictated By: Audie Griffin MD 06/26/2545 Signed By: <Electronically signed by MD Audie Griffin in OV> 06/26/25846 10:46 AM Results were successfully communicated with the patient and they acknowledged their understanding. * Telephone Encounter - Valeria Adan RN - 07/01/2025 10:46 AM EDT ----- Message from Alfonso Trujillo sent at 06/28/2025 4:39 PM EDT ----- No new orders. Please call patient with normal result. ----- Message ----- From: Interface, Clinisync - Imaging Results In Sent: 06/26/2025 8:51 AM EDT To: Alfonso Trujillo DO * Result Encounter Note - Alfonso Trujillo DO - 06/28/2025 4:39 PM EDT No new orders. Please call patient with normal result. documented in this encounter Plan of Treatment Upcoming Encounters Date Type Department Care Team (Late st Contact Info) Description 09/17/2025 8:00 AM EDT Office Visit [facility] 703 [facility] [address] [place] [address] Germaine Mas, MARKET RESEARCHER-WEARING APPAREL ASSEMBLER 703 [facility] [address] [place] [address] documented as of this encounter Visit Diagnoses Not on filedocumented in this encounter Care Teams Ingot Stripper Relationship Specialty Start Date End Date Sascha Larsen DO PCP - General 03/30/23 documented as of this encounter
--- OUTSIDE RECORDS SUMMARY | 2025-07-14 14:06 | XMS_ITS | Clinical Summary ---
Author Organization [facility] Address [address] [place] [address] Care Team Providers Care Set Decorator Name Role Phone Arsenio Loera MD Unavailable Carlos Eden DO Unavailable [phone] Sascha Larsen MD Primary Care Provider [phone] Allergies Active Allergy Reactions Criticality Noted Date Comments Aspirin Buf(Rygzqo-Gvtomz-Ofz) 10/13/2015 Other Reaction(s): Other (See Comments), Unknown [...] (Arava) 10 MG tablet 07/23/20 24 Active dexAMETHasone (Decadron) 2 MG tabletIndicatio ns:Piriformis syndrome of right side Take 1 tablet by mouth once daily for 7 days. 7 tablet 1 03/21/20 25 Active Additional Information Patient not taking.Reported on 05/15/2025 primidone (Mysoline) 50 MG tabletIndicatio ns:Intention tremor Take 1 tablet (50 mg) by mouth Daily AND 3 tablets (150 mg) at bedtime. 360 tablet 3 03/21/20 25 2025 Active aspirin 81 MG EC tablet [...] (100 mg) before bedtime. 270 capsule 3 05/15/20 25 2025 Active methylPREDNISol one (Medrol Dospak) 4 MG tabletsIndicati ons:Tenosynovit is of right lower leg TAKE BY MOUTH INSTRUCTED - PER PACKAGE INSTRUCTIONS 21 tablet 06/03/20 Active Active Problems Problem Noted Date Diagnosed [...] pain 05/28/2024 Cleft palate and cleft lip ([facility]) 05/28/2024 Compression of right ulnar nerve at [...] to 33.9 in adult 04/15/2023 Cleft palate ([facility]) 09/29/2022 Cluster headache 09/29/2022 Hearing loss 09/29/2022 Antiphospholipid syndrome ([facility]) 09/29/2022 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 Osteoarthritis of knee 09/29/2022 Carpal tunnel syndrome 08/02/2018 Allergic rhinitis 07/28/2017 Essential hypertension 04/26/2017 Actinic keratosis 02/12/2017 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 Glenoid labrum tear 11/21/2008 Rotator cuff syndrome of right shoulder 11/21/19 Traumatic rupture of biceps tendon 11/21/2008 Encounters Date Type Department Care Team Description 06/27/2025 11:50 AM EDT Procedure Visit [facility] [address] [place] [address] Kali Terrazas DPM Tenosynovitis of right lower leg (Primary Dx); Pain due to onychomycosis of toenails of both feet; Xerosis cutis; Su splint, right, initial encounter; 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 06/27/2025 Bamboo flowsheet [facility] [address] [place] [phone] Kali Terrazas DPM 06/27/2025 Travel 06/17/2025 Telephone [facility] [address] [place] [address] Susan Multani MA Other 06/01/2025 Refill [facility] [address] [place] [address] Kali Terrazas DPM Tenosynovitis of right lower leg 05/15/2025 10:30 AM EDT Office Visit [facility] [address] [place] [address] Phoebe Connell, SALES ADMINISTRATOR Intention tremor (Primary Dx); Polyneuropathy 05/15/2025 Bamboo flowsheet [facility] [address] [facility] [place] [address] Phoebe Connell, SALES ADMINISTRATOR 05/15/2025 Travel from Last 3 Months Immunizations Immunization [...] AM EDT Temperature - - Respiratory Rate 18 06/27/2025 11:45 AM EDT Oxygen Saturation - - Inhaled Oxygen Concentration - - Weight 98.9 kg (218 lb) 06/27/2025 11:45 AM EDT Height 170.2 cm (5' 7 ) 06/27/2025 11:45 AM EDT Body Mass Index 34.14 06/27/2025 11:45 AM EDT Plan of Treatment Upcoming Encounters Date Type Department Care Team (Late st Contact Info) Description 07/17/2025 2:00 PM EDT Office Visit [facility] [address] [facility] [address] [place] [address] Phoebe Connell, SALES ADMINISTRATOR [address] [facility] [address] [place] [address] 09/16/2025 9:00 AM EDT Office Visit [facility] [address] [facility] [address] [place] [address] Junito Taylor MD [address] [facility] [address], [place] [phone] 09/19/2025 11:50 AM EDT Procedure Visit [facility] 112 [facility] [address] [place] [address] Kali Terrazas, DPEduard 3006 [facility] [address] [place] [address] 12/18/2025 1:45 PM EST Office Visit [facility] [address] [place] [address] Carlos Eden, DO [address] [place] [address] Health Maintenance Due Date Last Done Comments CT Colonography 1957 Colonoscopy 1957 Colorectal Cancer Screening 1955 FIT-DNA 1955 FIT 1955 FOBT 1955 Sigmoidoscopy 1955 Influenza Vaccine (#1) 2025 , 08/23/2023, 12/05/2022, Additional history exists Pneumococcal Vaccine: 65+ Years Completed 09/06/2024, 04/16/2022, 09/16/2016, Additional history exists Insurance MEDICARE [facility] Care Teams Set Decorator Relationship Specialty Start Date End Date Sascha Larsen MD [address] [place] [address] PCP - General Family Medicine 01/30/25 Arsenio Loera MD [address] [place] [address], [address] [place] [address] Referring Physician Neurosurgery 06/13/24 Carlos Eden DO [address] [place] [address] Otolaryngology 06/13/24
--- OUTSIDE RECORDS SUMMARY | 2025-07-14 14:06 | XMS_ITS | Encounter Summary ---
Author Organization [employer] Address [facility]-[id number] [address] [place] [address] Care Team Providers Care Materials Planner/Production Planner Name Role Phone Sascha Larsen Primary Care Provider + [phone] Encounter Details Date Type Department Care Team (Late st Contact Info) Description 08/28/2024 Orders Only [facility] Internal Medicine - Family Medicine [address] [place] [address] Ref Prov, [place] [address] Social History Tobacco Use Types Packs/Day Years Used Date Smoking Tobacco: Former Cigarettes Passive Smoke Exposure: Past Smokeless Tobacco: Never Alcohol Use Standard Drinks/Week Comments Not Currently 0 (1 standard drink = 0.6 oz pur e alcohol) [facility] Utilities Answer Date Recorded In the past 12 months has [employer], gas, oil, or water [email or web address] threatened to shut off services in your [...] often do you attend chur ch or synagogue services? More than 4 times per year 04/14/2023 Do you belong to any clubs o r organizations such as gnosticist groups, unions, fraternal or athletic groups, or [...] Answer Date Recorded Total Score 0 06/14/2024 [facility] - Occupational Stress Questionnaire Answer Date [...] Do you need help finding a [facility] career center and/or a training [...] Medicine [address] [place] [address] documented as of this encounter Procedures Procedure [...] documented as of this encounter Care Teams Materials Planner/Production Planner Relationship Specialty Start Date End Date Sascha Larsen DO [address] [place] [address] PCP - General Family Medicine 09/23/22 documented as of this encounter
--- OUTSIDE RECORDS SUMMARY | 2025-07-14 14:06 | XMS_ITS | Encounter Summary ---
Author Organization [facility] Address [address] [place] [address] Phone Care Team Providers Care Plastic Products Sales Representative Name Role Phone Sascha Larsen Primary Care Provider Encounter Details Date Type Department Care Team (Late st Contact Info) Description 02/15/2025 Scanned Document [facility] [address] [place] [phone] Scanning, Generic Provider Social History Tobacco Use [...] Department Care Team (Late Contact Info) Description 09/17/2025 8:00 AM EDT Office Visit [facility] [address] [facility] [address] [place] [address] Germaine Mas, STEEL SASH ERECTOR-MEDICAL LAB SCIENTIST [address]03 [facility] [address] [place] [address] documented as of this encounter Procedures Procedure Name Priority Date/Time Associated Diagnosis Comments OUTSIDE IMAGING SCAN 02/15/2025 documented in this encounter Results * OUTSIDE IMAGING SCAN (02/15/2025) Anatomical Region Laterality Modality Other Narrative 02/15/2025 Ordered by an unspecified provider. us Generic Provider Scanning OUTSIDE SCAN Final Result documented in this encounter Visit Diagnoses Not on filedocumented in this encounter Care Teams Plastic Products Sales Representative Relationship Specialty Start Date End Date Sascha Larsen DO PCP - General 03/30/23 documented as of this encounter
--- OUTSIDE RECORDS SUMMARY | 2025-07-14 14:06 | XMS_ITS | Encounter Summary ---
Author Organization [facility] Address [address] [place] [address] Phone Care Team Providers Care Enrollment Counselor Name Role Phone Sascha Larsen DO Primary Care Provider Encounter Details Date Type Department Care Team (Late st Contact Info) Description 03/20/2023 Orders Only [facility] [address] [place] [address] Conversion, Onbase Social History Tobacco Use Types [...] Description 09/17/2025 8:00 AM EDT Office Visit [facility] 703 [facility] [address] [place] [phone] Germaine Mas, RADIOCOMMUNICATIONS TECHNICIAN-BRACE MAKER [address] [facility] [address] [place] [address] Scheduled Orders Name Type Priority Associated Diagnoses Orde r Schedule OUTSIDE LAB SCAN Lab Ordered: 03/20/2023 documented as of this encounter Visit Diagnoses Not on filedocumented in this encounter Care Teams Enrollment Counselor Relationship Specialty Start Date End Date Sascha Larsen DO PCP - General 03/30/23 documented as of this encounter
--- OUTSIDE RECORDS SUMMARY | 2025-07-14 14:06 | XMS_ITS | Encounter Summary ---
Author Organization [employer] Address [id number] [address] [place] [address] Care Team Providers Care Dock Associate Name Role Phone Sascha Larsen Primary Care Provider + [phone] Encounter Details Date Type Department Care Team (Late st Contact Info) Description 10/02/2024 Telephone [facility] - Family Medicine [address] [place] [address] Kori Magana CMA Social History Tobacco Use Types Packs/Day Years Used Date Smoking Tobacco: Former Cigarettes Passive Smoke Exposure: Past Smokeless Tobacco: Never Alcohol Use Standard Drinks/Week Comments Not Currently 0 (1 standard drink = 0.6 oz pur e alcohol) [facility] Utilities Answer Date Recorded In the past 12 months has [employer], gas, oil, or water [employer] threatened to shut off services in your [...] often do you attend chur ch or baptist services? More than 4 times per year 04/14/2023 Do you belong to any clubs o r organizations such as presybeterian groups, unions, fraternal or athletic groups, or [...] Answer Date Recorded Total Score 0 09/24/2024 [facility] [...] - Family Medicine [address] [place] [address] documented as of this encounter Visit Diagnoses Not on filedocumented in this encounter Additional Health Concerns Assessment Noted Time PHQ-9 Depression Total Score: 0 09/24/20 24 1:35 PM EST documented as of this encounter Care Teams Dock Associate Relationship Specialty Start Date End Date Sascha Larsen DO [address], [facility] [place] [address] PCP - General Family Medicine 09/23/22 documented as of this encounter
--- OUTSIDE RECORDS SUMMARY | 2025-07-14 14:06 | XMS_ITS | Clinical Summary ---
Author Organization [facility] Address [address] [place] [address] Phone Care Team Providers Care Forest Products Teacher Name Role Phone Sascha Larsen Primary Care Provider Allergies Active Allergy Reactions Criticality Noted Date Comments Aspirin,Buffd-Calcium Carb-Mag Nausea/vomiting 06/20/2025 Cephalexin Unknown 06/20/2025 Oxycodone Hallucinations 06/20/2025 Sulfa (Sulfonamide Antibiotics) Rash Low 05/23 Medications acetaminophen (Tylenol) 500 mg tablet Take 2 tablets (1,000 mg) by mouth twice a day. Active leflunomide (Arava) 10 mg tablet Take 1 tablet (10 mg) by mouth once daily. 4 Active methotrexate sodium/PF (methotrexate, PF,) 25 mg/mL 1 mL (25 mg) 1 (one) time per week. 4 Active leucovorin (Wellcovorin) 5 mg tablet Take 1 tablet (5 mg total) by mouth once daily. Take with a full glass of water. Active omeprazole (PriLOSEC) [address] capsule Take 1 capsule (40 mg) by mouth once daily in the morning. Take before meals. 4 Active folic acid (Folvite) 1 mg tablet Take 1 tablet (1 mg) by mouth once daily. Active traMADol (Ultram) 50 mg tablet Take 1 tablet (50 mg) by mouth 2 times a day. Active hydroxychloroquin e (Plaquenil) 200 mg tablet Take 1 tablet (200 mg) by mouth 2 times a day. Active aspirin 81 mg EC tablet Take 1 tablet (81 mg) by mouth once daily. Active prednisoLONE acetate (Pred-Forte) 1 % ophthalmic suspension 1 drop 4 times a day. Active montelukast (Singulair) 10 mg tablet Take 1 tablet (10 mg) by mouth once daily at bedtime. Active simvastatin (Zocor) 20 mg tablet Take 1 tablet (20 mg) by mouth once daily at bedtime. Active lisinopril 20 mg tablet Take 1 tablet (20 mg) by mouth once daily. Active hydroCHLOROthiazi de (Microzide) 12.5 mg tablet Take 1 tablet (12.5 mg) by mouth once daily. Active fluticasone (Veramyst) 27.5 mcg/actuation nasal spray Administer 2 sprays into each nostril once daily. Active lubricating eye drops ophthalmic solution 1 drop if needed for dry eyes. Active eyelid cleanser combination 3 (OCUSOFT LID SCRUB PLUS TOP) Apply topically. Active fexofenadine-pseu doephedrine (Seema-D) 60-120 mg 12 hr tablet Take 1 tablet by mouth 2 times a day. Do not crush, chew, or split. Active methylPREDNISolon e (Medrol) 4 mg tablet Take 1 tablet (4 mg) by mouth once daily. Active potassium bicarbonate (K-Lyte) 25 mEq effervescent tablet Take 1 tablet (25 mEq) by mouth 2 times a day. Active tamsulosin (Flomax) 0.4 mg 24 hr capsule Take 1 capsule (0.4 mg) by mouth once daily. Do not crush, chew, or split. Active dutasteride (Avodart) 0.5 mg capsule Take 1 capsule (0.5 mg) by mouth once daily. Active meloxicam (Mobic) 15 mg tablet Take 1 tablet (15 mg) by mouth once daily. Active gabapentin (Neurontin) 100 mg capsule Take 1 capsule (100 mg) by mouth 3 times a day. Active budesonide-formot arnulfo (Symbicort) 80-4.5 mcg/actuation inhaler Inhale 2 puffs 2 times a day. Rinse mouth with water after use to reduce aftertaste and incidence of candidiasis. Do not swallow. Active Active Problems Problem Noted Date Diagnosed Date Preop cardiovascular exam 06/20/2025 Mixed hyperlipidemia 06/20/2025 Essential (primary) hypertension 06/20/2025 Former smoker 06/20/2025 BMI 34.0-34.9,adult 06/20/2025 Syncope 06/20/2025 Lupus (systemic lupus erythematosus) (Multi) Encounters Date Type Department Care Team Description 06/28/2025 Results Follow-Up [address] [address] Alfonso Trujillo DO Carotid Artery Duplex Ultrasoun 06/27/[address] [address] Valeria Adan RN 06/26/2025 Orders Only [facility] [address] [place] [address] Alfonso Trujillo, 06/25/2025 8:00 AM EDT Ancillary Procedure [address] [address] Syncope, unspecified syncope type; PVC (premature ventricular contraction) 06/25/2025 Travel 06/20/2025 9:20 AM EDT Office Visit [address] [address] Alfonso Trujillo DO Preop cardiovascular exam; Syncope, unspecified syncope type; Mixed hyperlipidemia; Essential (primary) hypertension; PVC (premature ventricular contraction); Systemic lupus erythematosus, unspecified SLE type, unspecified organ involvement status (Multi); BMI 34.0-34.9,adult; Former smoker 06/20/2025 Telephone [facility] [address] [facility] [address] [place] [address] Alfonso Trujillo, 06/20/2025 Travel 06/14/[address] [place] [address] Leah Benavidez LPN Pre-op Clearance 04/18/2025 Scanned Document [facility] [address] [place] [address] Scanning, Generic Provider from Last 3 Months Family History Medical History Relation Name Comments Heart attack Father Blood clot Mother Heart disease Mother Relation Name Status Comments Father Mother [...] Sign Reading Time Taken Comments Blood Pressure 122/74 06/20/2025 9:38 AM EDT Pulse 69 06/20/2025 9:37 AM EDT Temperature - - Respiratory Rate - - Oxygen Saturation - - Inhaled Oxygen Concentration - - Weight 101 kg (221 lb 12.8 oz) 06/20/2025 9:37 A M EDT Height 170.2 cm (5' 7 ) 06/20/2025 9:37 AM EDT Body Mass Index 34.74 06/20/2025 9:37 AM EDT Plan of Treatment Upcoming Encounters Date Type Department Care Team (Late st Contact Info) Description 09/17/2025 8:00 AM EDT Office Visit [facility] [address] [phone] Germaine Mas, FINANCIAL ACCOUNTING MANAGER-CONTROL VALVE TECHNICIAN [address]03 [facility] [address] [place] [address] Health Maintenance Due Date Last Done Comments CT Colonography 1957 FIT-DNA (Cologuard) 1957 FIT 1957 Lipid Panel 1955 Medicare Annual Wellness Visit (AWV) 1955 Sigmoidoscopy 1955 MMR Vaccines (1 of 1 - Standard series) 1958 Diabetes Screening 1975 Hepatitis C Screening 1975 PSA Prostate Cancer Screening 2007 Abdominal Aortic Aneurysm (AAA) Screening 2022 COVID-19 Vaccine ( season) 2024 03/06/2024, 08/23/2023, 10/08/2022, Additional history exists Influenza Vaccine (#1) 2025 , 08/23/2023, 12/05/2022, Additional history exists Colonoscopy 06/15/2027 06/15/2017 Colorectal Cancer Screening 06/15/2027 DTaP/Tdap/Td Vaccines (3 - Td or Tdap) 05/20/2033 05/20/2023, 12/05/2012 Hepatitis B Vaccines Aged Out 11/20/1990, 10/04/19 90 No longer eligible based on patient's age to complete this topic Zoster Vaccines Completed 08/26/2019, 06/27/2019 RSV High Risk: (Elderly (60+) or Population) Completed 08/23/2023 Pneumococcal Vaccine Completed 09/06/2024, 04/16/2022, 09/16/2016, Additional history exists HIB Vaccines Aged Out No longer eligi [...] on patient's age to complete this topic Procedures Procedure Name Priority Date/Time Associated Diagnosis Comments CAROTID ARTERY DUPLEX ULTRASOUN 06/26/2025 8:45 AM EDT ECG 12-LEAD Routine 06/20/2025 10:23 AM EDT Preop cardiovascular exam Syncope, unspecified syncope type from Last 3 Months Results * Carotid Artery Duplex Ultrasoun (06/26/2025 8:45 AM EDT) Anatomical Region Laterality Modality Ultrasound 06/26/2025 8:45 AM EDT Narrative 06/26/2025 8:49 AM EDT [facility] Main [address] [address] Ultrasound Report Signed Patient: Valentin Wong MR#: [id number] 31 : 1955 Acct:[id number] Age/Sex: 70 / M ADM Date: 06/25/25 Loc: Room: Type: DEP CLI Attending Dr: Melanie Trujillo DO Ordering Provider: [...] Griffin M.D. 06/26/2025 8:47 AM Dictation Location: [place] [address] Tech: Мария Artis Transcribed By: MARV 06/26/25 0847 Dictated By: Audie Griffin MD 06/26/25 0845 Signed By: <Electronically signed by MD Audie Griffin in OV> 06/26/25 0847 Alfonso Trujillo DO CV VASCULAR PROCEDURES Linda l Result * ECG 12 Lead (06/20/2025 10:23 AM EDT) Narrative Alfonso Trujillo DO - 06/20/2025 10:23 AM EDT Normal sinus rhythm, low voltage QRS, nonspecific ST-T wave abnormality, PVCs, abnormal ECG Alfonso Trujillo DO ECG ORDERABLES Final Resul t from Last 3 Months Insurance MEDICARE PART A AND B [facility] MEDICARE PART A AND B [facility] Care Teams Forest Products Teacher Relationship Specialty Start Date End Date Sascha Larsen DO PCP - General 03/30/23
--- OUTSIDE RECORDS SUMMARY | 2025-07-14 14:06 | XMS_ITS | Encounter Summary ---
Author Organization [id number] Address [facility]-[id number] [address] [place] [address] Care Team Providers Care Bed Setter Name Role Phone Sascha Larsen Primary Care Provider + [phone] Encounter Details Date Type Department Care Team (Late st Contact Info) Description 12/20/2023 Telephone [facility] - Family Medicine [address] [place] [phone] AlanAlly edward, RAMIRO Social History Tobacco Use [...] How often do you attend chur or catholic services? More than 4 times per year 04/14/2023 Do you belong to any clubs o r organizations such as roman catholic groups, unions, fraternal or athletic groups, or [...] Answer Date Recorded Total Score 3 12/14/2023 [facility] of Occupat ional Health - Occupational [...] Recorded Do you need help finding a [facility] and/or a training [...] - Family Medicine [address] [place] [address] documented as of this encounter Visit Diagnoses Not on filedocumented in this encounter Additional Health Concerns Assessment Noted Time PHQ-9 Depression Total Score: 3 12/14/19 24 9:29 AM EST documented as of this encounter Care Teams Bed Setter Relationship Specialty Start Date End Date Sascha Larsen DO [address] [place] [address] PCP - General Family Medicine 09/23/22 documented as of this encounter
--- OUTSIDE RECORDS SUMMARY | 2025-07-14 14:06 | XMS_ITS | Encounter Summary ---
Author Organization [employer] Address [facility]-[id number] [address] [place] [address] Care Team Providers Care Store Loss Prevention Manager Name Role Phone Sascha Larsen Primary Care Provider + [phone] Encounter Details Date Type Department Care Team (Late st Contact Info) Description 04/10/2025 Telephone [facility] - Family Medicine [address] [place] [phone] Carmen Neff CMA Social History Tobacco Use Types Packs/Day Years Used Date Smoking Tobacco: Former Cigarettes Passive Smoke Exposure: Past Smokeless Tobacco: Never Alcohol Use Standard Drinks/Week Comments Not Currently 0 (1 standard drink = 0.6 oz pur e alcohol) [facility] Utilities Answer Date Recorded In the past 12 months has [employer], gas, oil, or water company threatened to [...] often do you attend chur ch or religion services? More than 4 times per year [...] Answer Date Recorded Total Score 0 02/25/2025 [facility] of Occupat ional Health - [...] Recorded Do you need help finding a [facility] career center and/or a training [...] - Family Medicine [address] [place] [address] documented as of this encounter Visit Diagnoses Not on filedocumented in this encounter Additional Health Concerns Assessment Noted Time PHQ-9 Depression Total Score: 0 02/26/20 25 1:33 PM EDT documented as of this encounter Care Teams Store Loss Prevention Manager Relationship Specialty Start Date End Date Sascha Larsen DO [address], [facility] [place] [address] PCP - General Family Medicine 09/23/22 documented as of this encounter
--- OUTSIDE RECORDS SUMMARY | 2025-07-14 14:06 | XMS_ITS | Encounter Summary ---
Author Organization [employer] Address [facility]-[id number] [address] [place] [address] Care Team Providers Care Sales Engineer Name Role Phone Sascha Larsen Primary Care Provider + [phone] Encounter Details Date Type Department Care Team (Late st Contact Info) Description 01/28/2025 Orders Only [facility] - Family Medicine [address] [place] [address] Ref Prov, [place] [address] Social History Tobacco Use Types Packs/Day Years Used Date Smoking Tobacco: Former Cigarettes Passive Smoke Exposure: Past Smokeless Tobacco: Never Alcohol Use Standard Drinks/Week Comments Not Currently 0 (1 standard drink = 0.6 oz pur e alcohol) [facility] Utilities Answer Date Recorded In the past 12 months has [employer], gas, oil, or water [employer] threatened to shut off services in your [...] often do you attend chur ch or roman catholic services? More than 4 times per year 04/14/2023 Do you belong to any clubs o r organizations such as advent groups, unions, fraternal or athletic groups, or [...] Answer Date Recorded Total Score 0 01/25/2025 [facility] - Occupational Stress Questionnaire Answer [...] Recorded Do you need help finding a [facility] career center and/or a training [...] - Family Medicine [address] [place] [address] documented as of this encounter Procedures Procedure Name Priority Date/Time Associated Diagnosis Comments MULTIPLE LABS Routine 01/14/2025 4:20 PM EST documented in this encounter Results * Multiple labs (01/14/2025 4:20 PM EST) us Not In System Ref Prov NE IMAGING Final Res ult MANUALLY TRANSCRIBED RESULTS documented in this encounter Visit Diagnoses Not on filedocumented in this encounter Additional Health Concerns Assessment Noted Time PHQ-9 Depression Total Score: 0 01/26/20 11:28 AM EST documented as of this encounter Care Teams Sales Engineer Relationship Specialty Start Date End Date Sascha Larsen DO [address] [place] [address] PCP - General Family Medicine 09/23/22 documented as of this encounter
--- OUTSIDE RECORDS SUMMARY | 2025-07-14 14:06 | XMS_ITS | Encounter Summary ---
Author Organization [facility] Address [address] [place] [address] Phone Care Team Providers Care Excel Specialist Name Role Phone Sascha Larsen DO Primary Care Provider Encounter Details Date Type Department Care Team (Late st Contact Info) Description 04/08/2023 Orders Only [facility] [address] [place] [address] Conversion, Onbase Social History Tobacco Use Types [...] Description 09/17/2025 8:00 AM EDT Office Visit [facility] [address] [facility] [address] [place] [address] Germaine Mas, CHILD CAREGIVER PRIVATE HOME[facility] [address] [facility] [address] [place] [address] Scheduled Orders Name Type Priority Associated Diagnoses Orde r Schedule OUTSIDE LAB SCAN Lab Ordered: 04/08/2023 documented as of this encounter Visit Diagnoses Not on filedocumented in this encounter Care Teams Excel Specialist Relationship Specialty Start Date End Date Sascha Larsen DO PCP - General 03/30/23 documented as of this encounter
--- OUTSIDE RECORDS SUMMARY | 2025-07-14 14:07 | XMS_ITS | Encounter Summary ---
Author Organization [employer] s [employer] Address [id number] [address] [place] [address] Care Team Providers Care Corncob Pipe Supervisor Name Role Phone Sascha Larsen DO Primary Care Provider + [phone] Encounter Details Date Type Department Care Team (Late st Contact Info) Description 12/19/2023 Orders Only [facility] - Family Medicine [address] [place] [address] Sascha Larsen DO [address] [place] [address] Midline low back pain without sciatica, unspecified [...] often do you attend chur ch or mosque services? More than 4 times per year 04/14/2023 Do you belong to any clubs o r organizations such as orthodox groups, unions, fraternal or athletic groups, or [...] Answer Date Recorded Total Score 3 12/14/2023 [facility] of Occupat ional Health - [...] Recorded Do you need help finding a [facility] career [facility] and/or a training program? No [...] - Family Medicine [address] [place] [address] documented as of this encounter Procedures Procedure [...] documented as of this encounter Care Teams Corncob Pipe Supervisor Relationship Specialty Start Date End Date Sascha Larsen DO [address] [place] [address] PCP - General Family Medicine 09/23/22 documented as of this encounter
--- OUTSIDE RECORDS SUMMARY | 2025-07-14 14:07 | XMS_ITS | Encounter Summary ---
Author Organization [employer] Address [facility]-[id number] [address] [place] [address] Care Team Providers Care Government Relations Analyst Name Role Phone Sascha Larsen Primary Care Provider + [phone] Encounter Details Date Type Department Care Team (Late st Contact Info) Description 04/14/2023 Orders Only [facility] - Family Medicine [address] [place] [phone] Minerva Saini CMA Shortness of breath Social [...] week 04/14/2023 How often do you attend [facility] or taoism services? More than 4 times per year [...] Answer Date Recorded Total Score 0 04/15/2023 [facility] of Occupat ional Health - [...] - Family Medicine [address] [place] [address] documented as of this encounter Procedures Procedure Name Priority Date/Time Associated Diagnosis Comments PULMONARY FUNCTION TEST Routine 04/14/2023 9:36 A M EDT Shortness of breath documented in this encounter Results * Pulmonary function test Complete PFT (Spirometry (Flow Volume Loop) w/ DLCO (diffusion study) and Lung Volume) (04/14/2023 9:36 AM EDT) us Sascha Larsen DO PFT ORDERABLES Final Result Performing Organization Address City/State/[facility] Co de Phone Number MANUALLY TRANSCRIBED RESULTS documented in this encounter Visit Diagnoses Diagnosis Shortness of breath documented in this encounter Additional Health Concerns Assessment Noted Time PHQ-9 Depression Total Score: 0 04/14/20 1:06 PM EDT documented as of this encounter Care Teams Government Relations Analyst Relationship Specialty Start Date End Date Sascha Larsen DO [address] [place] [address] PCP - General Family Medicine 09/23/22 documented as of this encounter
--- OUTSIDE RECORDS SUMMARY | 2025-07-14 14:07 | XMS_ITS | Encounter Summary ---
Author Organization [facility] [employer] Address [facility]-[id number] [address] [place] [address] Care Team Providers Care Wire Weaver Cloth Name Role Phone Sascha Larsen DO Primary Care Provider + [phone] Reason for Visit * Reason Comments Med Refill Encounter Details Date Type Department Care Team (Late Contact Info) Description 03/12/2023 Refill [facility] - Family Medicine [address] [place] [address] Sascha Larsen DO [address] [place] [address] Social History Tobacco Use Types Packs/Day Years [...] - Family Medicine [address] [place] [address] documented as of this encounter Visit Diagnoses Not on filedocumented in this encounter Care Teams Wire Weaver Cloth Relationship Specialty Start Date End Date Sascha Larsen DO [address] [place] [address] PCP - General Family Medicine 09/23/22 documented as of this encounter
--- OUTSIDE RECORDS SUMMARY | 2025-07-14 14:07 | XMS_ITS | Encounter Summary ---
Author [facility] Address [facility] [place] [id number] [address] [place] [address] Care Team Providers Care Manager Outreach Name Role Phone Sascha Larsen DO Primary Care Provider + [phone] Encounter Details Date Type Department Care Team ([facility] Contact Info) Description 03/21/2023 Orders Only [facility] [address] [place] [phone] External, Scanning Provider Social History Tobacco Use [...] Upcoming Encounters Date Type Department Care Team ([facility] Contact Info) Description 05/13/2026 10:20 AM EDT [facility] [address] [place] [address] documented as of this encounter Procedures Procedure Name Priority Date/Time Associated Diagnosis Comments ECG 12-LEAD Routine 03/21/2023 documented in this encounter Results * ECG 12 lead (03/21/2023) us Scanning Provider External ECG ORDERABLES Final Result Performing Organization Address City/State/[facility] Co de Phone Number MANUALLY TRANSCRIBED RESULTS documented in this encounter Visit Diagnoses Not on filedocumented in this encounter Care Teams Manager Outreach Relationship Specialty Start Date End Date Sascha Larsen DO [address] [place] [address] PCP - General Family Medicine 09/23/22 documented as of this encounter
--- OUTSIDE RECORDS SUMMARY | 2025-07-14 14:07 | XMS_ITS | Encounter Summary ---
Author Organization [facility] [employer] Address [facility]-[id number] [address] [place] [address] Care Team Providers Care Director Center Name Role Phone Sascha Larsen DO Primary Care Provider + [phone] Encounter Details Date Type Department Care Team (Late st Contact Info) Description 03/25/2023 Orders Only [facility] - Family Medicine [address] [place] [address] External, Scanning Provider Social History Tobacco Use [...] - Family Medicine [address] [place] [address] documented as of this encounter Procedures Procedure Name Priority Date/Time Associated Diagnosis Comments ECHO 2.0 Routine 03/25/2023 documented in this encounter Results * Echo 2.0 (03/25/2023) Anatomical Region Laterality Modality Chest N/A Ultrasound us Scanning Provider External CV ECHO ORDERABLES Fi nal Result documented in this encounter Visit Diagnoses Not on filedocumented in this encounter Care Teams Director Center Relationship Specialty Start Date End Date Sascha Larsen DO [address] [place] [address] PCP - General Family Medicine 09/23/22 documented as of this encounter
--- OUTSIDE RECORDS SUMMARY | 2025-07-14 14:07 | XMS_ITS | Encounter Summary ---
Author Organization [employer] Address [id number] [address] [place] [address] Care Team Providers Care Swing Ride Operator Name Role Phone Sascha Larsen DO Primary Care Provider + [phone] Reason for Visit * Reason Comments Med Refill Encounter Details Date Type Department Care Team (Late Contact Info) Description 09/27/2022 Refill [facility] - Family Medicine [address] [place] [phone] Sascha Larsen DO [address], [facility] [place] [address] Social History Tobacco Use Types Packs/Day Years [...] Medicine - Family Medicine [address] [place] [address] documented as of this encounter Visit Diagnoses Not on filedocumented in this encounter Care Teams Swing Ride Operator Relationship Specialty Start Date End Date Sascha Larsen, DO [address] [facility], [place] [address] PCP - General Family Medicine 09/23/22 documented as of this encounter
--- OUTSIDE RECORDS SUMMARY | 2025-07-14 14:07 | XMS_ITS | Encounter Summary ---
Author Organization [facility] Address [id number] [address] [place] [address] Care Team Providers Care Boarding Machine Operator Name Role Phone Sascha Larsen DO Primary Care Provider + [phone] Encounter Details Date Type Department Care Team (Late st Contact Info) Description 03/30/2023 Orders Only [facility] Internal Medicine - Family Medicine [address] [place] [phone] Minerva Saini CMA Chest pain, unspecified type [...] - Family Medicine [address] [place] [address] documented as of this encounter Procedures Procedure [...] documented as of this encounter Care Teams Boarding Machine Operator Relationship Specialty Start Date End Date Sascha Larsen DO [address], [place] [address] PCP - General Family Medicine 09/23/22 documented as of this encounter
--- OUTSIDE RECORDS SUMMARY | 2025-07-14 14:07 | XMS_ITS | Encounter Summary ---
Author Organization [facility] Address [facility] [id number] [address] [place] [address] Care Team Providers Care Product Design Engineer Name Role Phone Sascha Larsen DO Primary Care Provider + [phone] Encounter Details Date Type Department Care Team (Late st Contact Info) Description 03/31/2023 Orders Only [facility] - Family Medicine [address] [place] [address] External, Scanning Provider Social History Tobacco Use [...] - Family Medicine [address] [place] [address] documented as of this encounter Procedures Procedure Name Priority Date/Time Associated Diagnosis Comments MULTIPLE LABS Routine 03/31/2023 documented in this encounter Results * Multiple labs (03/31/2023) us Scanning Provider External [place] [facility] Final Result MANUALLY TRANSCRIBED RESULTS documented in this encounter Visit Diagnoses Not on filedocumented in this encounter Additional Health Concerns Assessment Noted Time PHQ-9 Depression Total Score: 0 03/28/20 11:33 AM EDT documented as of this encounter Care Teams Product Design Engineer Relationship Specialty Start Date End Date Sascha Larsen DO [address] [place] [address] PCP - General Family Medicine 09/23/22 documented as of this encounter
--- OUTSIDE RECORDS SUMMARY | 2025-07-14 14:07 | XMS_ITS | Encounter Summary ---
Author Organization [email or web address] s tem Address [id number] [address] [place] [address] Care Team Providers Care Press Operator Printing Name Role Phone Sascha Larsen DO Primary Care Provider + [phone] Encounter Details Date Type Department Care Team ([facility] Contact Info) Description 10/11/2022 Orders Only [facility] Internal Medicine - Family Medicine [address] [place] [address] Yenny Almaguer MA 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[facility]); Foot pain, left Social History Tobacco Use [...] Medicine - Family Medicine [address] [place] [address] documented as of this encounter Procedures Procedure Name Priority Date/Time Associated Diagnosis Comments XR FOOT LT MIN 3 VWS Routine 09/29/2022 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[facility]) Foot pain, left documented in this encounter Results * X-ray foot left minimum 3 views (09/29/2022) Anatomical Region Laterality Modality Lower Extremities, MSK, Foot Left Com puted Radiography 09/29/2022 Carole Ibrahim LINKING MACHINE OPERATOR-SINTERING PLANT SUPERVISOR IMG DIAGNOSTIC IMAGING DEEDEE PHAN Final Result documented in this encounter Visit Diagnoses Diagnosis Connective tissue disease Unspecified diffuse connective tissue disease Foot pain, left Pain in soft tissues of limb documented in this encounter Care Teams Press Operator Printing Relationship Specialty Start Date End Date Sascha Larsen DO [address] [facility], [place] [address] PCP - General Family Medicine 09/23/22 documented as of this encounter
--- OUTSIDE RECORDS SUMMARY | 2025-07-14 14:07 | XMS_ITS | Encounter Summary ---
Author Organization [employer] Sys tem Address [facility] [id number] [address] [place] [address] Care Team Providers Care Physics And Astronomy Professor Name Role Phone Sascha Larsen Primary Care Provider + [phone] Encounter Details Date Type Department Care Team (Late st Contact Info) Description 06/10/2025 Orders Only [facility] Internal Medicine - Family Medicine [address] [place] [address] Ref Prov, [place] [address] Social History Tobacco Use Types Packs/Day Years Used Date Smoking Tobacco: Former Cigarettes 0.5 12 0 05/28/1975 - 05/28/1987 Passive Smoke Exposure: Past Smokeless Tobacco: Never Alcohol Use Standard Drinks/Week Comments Not Currently 0 (1 standard drink = 0.6 oz pur e alcohol) [facility] Utilities Answer Date Recorded In [...] often do you attend chur ch or faith services? More than 4 times per year 04/14/2023 Do you belong to any clubs o r organizations such as lutheran groups, unions, fraternal or athletic groups, or [...] Answer Date Recorded Total Score 0 06/11/2025 [facility] [place] of Occupat ional Health - Occupational Stress [...] Recorded Do you need help finding a [facility] career [facility] and/or a training program? [...] - Family Medicine [address] [place] [address] documented as of this encounter Procedures Procedure Name Priority Date/Time Associated Diagnosis Comments PULMONARY FUNCTION TEST Routine 05/01/2025 1:36 PM EDT documented in this encounter Results * Pulmonary function test (05/01/2025 1:36 PM EDT) us Not In System Ref Prov PFT ORDERABLES Final Res ult MANUALLY TRANSCRIBED RESULTS documented in this encounter Visit Diagnoses Not on filedocumented in this encounter Additional Health Concerns Assessment Noted Time PHQ-9 Depression Total Score: 0 05/28/20 25 2:40 PM EDT A Body Mass Index follow-up plan has been documented for the patient 05/28/2025 7:10 PM EDT documented as of this encounter Care Teams Physics And Astronomy Professor Relationship Specialty Start Date End Date Sascha Larsen DO [address] [place] [address] PCP - General Family Medicine 09/23/22 documented as of this encounter
--- OUTSIDE RECORDS SUMMARY | 2025-07-14 14:07 | XMS_ITS | Encounter Summary ---
Author Organization [employer] s tem Address [facility] [id number] [address] [place] [address] Care Team Providers Care Lumber Stacker Name Role Phone Sascha Larsen DO Primary Care Provider + [phone] Encounter Details Date Type Department Care Team (Late Contact Info) Description 10/11/2022 Orders Only [facility] Internal Medicine - Family Medicine [address] [place] [address] Carole Ibrahim, SUPERVISOR W[employer]OPE FABRICATION-COMPUTER SYSTEMS SECURITY ANALYST [address] [place] [address] [place], [place] [id number] Social History Tobacco Use Types Packs/Day Years [...] Description 05/13/2026 10:20 AM EDT [facility] [address] [place] [address] documented as of this encounter Visit Diagnoses Not on filedocumented in this encounter Care Teams Lumber Stacker Relationship Specialty Start Date End Date Sascha Larsen DO [address], [facility] [place] [address] PCP - General Family Medicine 09/23/22 documented as of this encounter
--- OUTSIDE RECORDS SUMMARY | 2025-07-14 14:07 | XMS_ITS | Encounter Summary ---
Author Organization [facility] Address [id number] [address] [place] [address] Care Team Providers Care Wildlife Biology Internship Name Role Phone Sascha Larsen DO Primary Care Provider + [phone] Encounter Details Date Type Department Care Team (Late st Contact Info) Description 12/16/2023 Orders Only [facility] - Family Medicine [address] [place] [address] Sascha Larsen DO [address] [place] [address] Social History Tobacco Use Types Packs/Day Years [...] often do you attend chur ch or druze services? More than 4 times per year [...] Date Recorded Total Score 3 12/14/2023 [facility] of Occupat ional Health - [...] Recorded Do you need help finding a [facility] career [facility] and/or a [...] - Family Medicine [address] [place] [address] documented as of this encounter Procedures Procedure Name Priority Date/Time Associated Diagnosis Comments COLONOSCOPY Routine 06/15/2017 7:42 AM EDT HEPATITIS C(HCV) ANTIBODY W/REFLEX TO PCR Routine 09/08/2016 7:47 AM EDT documented in this encounter Results * HM COLONOSCOPY (06/15/2017 7:42 AM EDT) us Scanning Provider External HEALTH MAINTENANCE Fi nal Result Performing Organization Address City/[facility]/ZIP Co de Phone Number MANUALLY TRANSCRIBED RESULTS * Hepatitis C(HCV) Ab w/ Reflex to PCR (09/08/2016 7:47 AM EDT) us Scanning Provider External LAB BLOOD ORDERABLES Final Result Performing Organization Address [facility]/[place] Co de Phone Number MANUALLY TRANSCRIBED LAB RESULTS documented in this encounter Visit Diagnoses Not on filedocumented in this encounter Additional Health Concerns Assessment Noted Time PHQ-9 Depression Total Score: 3 12/14/19 24 9:29 AM EST documented as of this encounter Care Teams Wildlife Biology Internship Relationship Specialty Start Date End Date Sascha Larsen DO [address] [place] [address] PCP - General Family Medicine 09/23/22 documented as of this encounter
--- OUTSIDE RECORDS SUMMARY | 2025-07-14 14:07 | XMS_ITS | Encounter Summary ---
Author Organization [email or web address] Address [id number] [address] [place] [address] Care Team Providers Care Truck Bench Mechanic Name Role Phone Sascha Larsen DO Primary Care Provider + [phone] Encounter Details Date Type Department Care Team (Late st Contact Info) Description 01/27/2024 Orders Only [facility] - Family Medicine [address] [place] [address] Sascha Larsen DO [address] [place] [address] Social History Tobacco Use Types Packs/Day Years [...] any clubs o r organizations such as restoration groups, unions, fraternal or athletic groups, or [...] Answer Date Recorded Total Score 3 12/14/2023 [facility] of Occupat ional Health - Occupational [...] Recorded Do you need help finding a [facility] career [facility] and/or a training [...] - Family Medicine [address] [place] [address] documented as of this encounter Procedures Procedure Name Priority Date/Time Associated Diagnosis Comments MULTIPLE LABS Routine 01/18/2024 10:08 AM EST documented in this encounter Results * Multiple labs (01/18/2024 10:08 AM EST) us Scanning Provider External [place] [facility] Final Result MANUALLY TRANSCRIBED RESULTS documented in this encounter Visit Diagnoses Not on filedocumented in this encounter Additional Health Concerns Assessment Noted Time PHQ-9 Depression Total Score: 3 12/14/19 24 9:29 AM EST documented as of this encounter Care Teams Truck Bench Mechanic Relationship Specialty Start Date End Date Sascha Larsen DO [address] [place] [address] PCP - General Family Medicine 09/23/22 documented as of this encounter
--- OUTSIDE RECORDS SUMMARY | 2025-07-14 14:07 | XMS_ITS | Encounter Summary ---
Author Organization [employer] Sys tem Address [facility] [place]-[id number] [address] [place] [address] Care Team Providers Care Print Line Operator Name Role Phone Sascha Larsen Primary Care Provider + [phone] Encounter Details Date Type Department Care Team (Late st Contact Info) Description 07/01/2025 Orders Only [facility] - Family Medicine [address] [place] [address] Ref Prov, [place] [address] Social History Tobacco Use Types Packs/Day Years Used Date Smoking Tobacco: Former Cigarettes 0.5 12 0 05/28/1975 - 05/28/1987 Passive Smoke Exposure: Past Smokeless Tobacco: Never Alcohol Use Standard Drinks/Week Comments Not Currently 0 (1 standard drink = 0.6 oz pur e alcohol) [facility] Utilities Answer Date Recorded In [...] any clubs o r organizations such as moravian groups, unions, fraternal or athletic groups, or [...] Answer Date Recorded Total Score 0 06/11/2025 [facility] [place] of Occupat ional Health - Occupational Stress [...] Recorded Do you need help finding a [facility] career [facility] and/or a training program? [...] - Family Medicine [address] [place] [address] documented as of this encounter Procedures Procedure Name Priority Date/Time Associated Diagnosis Comments PULMONARY FUNCTION TEST Routine 05/01/2025 3:50 PM EDT documented in this encounter Results * Pulmonary function test (05/01/2025 3:50 PM EDT) us Not In System Ref Prov PFT ORDERABLES Final Res ult MANUALLY TRANSCRIBED RESULTS documented in this encounter Visit Diagnoses Not on filedocumented in this encounter Additional Health Concerns Assessment Noted Time PHQ-9 Depression Total Score: 0 06/11/20 25 1:53 PM EDT A Body Mass Index follow-up plan has been documented for the patient 05/28/2025 7:10 PM EDT documented as of this encounter Care Teams Print Line Operator Relationship Specialty Start Date End Date Sascha Larsen DO [address] [place] [address] PCP - General Family Medicine 09/23/22 documented as of this encounter
--- OUTSIDE RECORDS SUMMARY | 2025-07-14 14:07 | XMS_ITS | Encounter Summary ---
Author Organization [employer] Sys tem Address [facility][id number] [address] [place] [address] Care Team Providers Care Remote Sensing Surveyor Name Role Phone Sascha Larsen Primary Care Provider + [phone] Encounter Details Date Type Department Care Team (Late st Contact Info) Description 04/11/2023 Orders Only [facility] Internal Medicine - Family Medicine [address] [place] [address] Brook May CMA Encounter for screening for [...] often do you attend chur ch or rastafarian services? More than 4 times per year [...] Answer Date Recorded Total Score 0 04/15/2023 [facility] of Occupat ional Health - Occupational [...] Recorded Do you need help finding a [facility] career center and/or a training [...] Medicine - Family Medicine [address] [place] [address] documented as of this encounter Procedures Procedure [...] Larsen DO LAB BLOOD ORDERABLES Final R [facility] Performing Organization Address City/[facility]/ZIP Co de Phone Number MANUALLY TRANSCRIBED [...] documented as of this encounter Care Teams Remote Sensing Surveyor Relationship Specialty Start Date End Date Sascha Larsen DO [address] [place] [address] PCP - General Family Medicine 09/23/22 documented as of this encounter
--- OUTSIDE RECORDS SUMMARY | 2025-07-14 14:07 | XMS_ITS | Encounter Summary ---
Author Organization [employer] Sys tem Address [id number] [address] [place] [address] Care Team Providers Care Tool Machine Shop Supervisor Name Role Phone Sascha Larsen DO Primary Care Provider + [phone] Encounter Details Date Type Department Care Team ([facility] Contact Info) Description 11/03/2022 Orders Only [facility] Internal Medicine - Family Medicine [address] [place] [address] External, Scanning Provider Social History Tobacco Use [...] - Family Medicine [address] [place] [address] documented as of this encounter Procedures Procedure Name Priority Date/Time Associated Diagnosis Comments MULTIPLE LABS Routine 10/26/2022 documented in this encounter Results * Multiple labs (10/26/2022) 10/26/2022 us Scanning Provider External [place] [facility] Final Result MANUALLY TRANSCRIBED RESULTS documented in this encounter Visit Diagnoses Not on filedocumented in this encounter Care Teams Tool Machine Shop Supervisor Relationship Specialty Start Date End Date Sascha Larsen DO [address] [place] [address] PCP - General Family Medicine 09/23/22 documented as of this encounter
--- OUTSIDE RECORDS SUMMARY | 2025-07-14 14:07 | XMS_ITS | Encounter Summary ---
Author Organization [employer] Sys tem Address [facility] [place]-[id number] [address] [place] [place] [address] Care Team Providers Care Manager Merchandise Name Role Phone Sascha Larsen Primary Care Provider + [phone] Encounter Details Date Type Department Care Team (Late st Contact Info) Description 07/08/2025 Orders Only [facility] Internal Medicine - Family Medicine [address] [place] [address] Ref Prov, [place] [address] Social History Tobacco Use Types Packs/Day Years Used Date Smoking Tobacco: Former Cigarettes 0.5 12 0 05/28/1975 - 05/28/1987 Passive Smoke Exposure: Past Smokeless Tobacco: Never Alcohol Use Standard Drinks/Week Comments Not Currently 0 (1 standard drink = 0.6 oz pur e alcohol) [facility] Utilities Answer Date Recorded In the [...] often do you attend chur ch or evangelical services? More than 4 times per year [...] Answer Date Recorded Total Score 0 06/11/2025 [facility] of Occupat ional Health - Occupational Stress [...] Recorded Do you need help finding a [facility] career center and/or a training program? [...] - Family Medicine [address] [place] [address] documented as of this encounter Procedures Procedure Name Priority Date/Time Associated Diagnosis Comments XR CHEST 1 VW Routine 06/07/2025 11:[address] BRAIN WO CONT Routine 06/07/2025 11:34 AM EDT documented in this encounter Results * X-ray chest 1 view (06/07/2025 [...] Prov IMG CT ORDERABLES Final R esult documented in this encounter Visit Diagnoses Not on filedocumented in this encounter Additional Health Concerns Assessment Noted Time PHQ-9 Depression Total Score: 0 06/11/20 1:53 PM EDT A Body Mass Index follow-up plan has been documented for the patient 05/28/2025 7:10 PM EDT documented as of this encounter Care Teams Manager Merchandise Relationship Specialty Start Date End Date Sascha Larsen DO [address] [place] [address] PCP - General Family Medicine 09/23/22 documented as of this encounter
--- OUTSIDE RECORDS SUMMARY | 2025-07-14 14:07 | XMS_ITS | Encounter Summary ---
Author Organization [employer] [facility] tem Address [id number] [address] [place] [address] Care Team Providers Care Legal Activity Adjudicator Name Role Phone Sascha Larsen DO Primary Care Provider + [phone] Encounter Details Date Type Department Care Team ([facility] Contact Info) Description 03/23/2023 Orders Only [facility] Internal Medicine - Family Medicine [address] [place] [address] External, Scanning Provider Social History Tobacco Use [...] Upcoming Encounters Date Type Department Care Team ([facility] Contact Info) Description 05/13/2026 10:20 AM EDT [facility] [address] [place] [address] documented as of this encounter Procedures Procedure [...] on filedocumented in this encounter Care Teams Legal Activity Adjudicator Relationship Specialty Start Date End Date Sascha Larsen DO [address], [place] [address] PCP - General Family Medicine 09/23/22 documented as of this encounter
--- OUTSIDE RECORDS SUMMARY | 2025-07-14 14:07 | XMS_ITS | Encounter Summary ---
Author Organization [facility] tem Address [id number] [address] [place] [address] Care Team Providers Care Pack Worker Name Role Phone Sascha Larsen DO Primary Care Provider + [phone] Encounter Details Date Type Department Care Team ([facility] Contact Info) Description 03/22/2023 Orders Only [facility] Internal Medicine - Family Medicine [address] [place] [address] External, Scanning Provider Social History Tobacco Use [...] Upcoming Encounters Date Type Department Care Team ([facility] Contact Info) Description 05/13/2026 10:20 AM EDT [facility] [address] [place] [address] documented as of this encounter Procedures Procedure Name Priority Date/Time Associated Diagnosis Comments NUC STRESS EXERCISE Routine 03/22/2023 documented in this encounter Results * Nuc stress exercise (03/22/2023) Anatomical Region Laterality Modality Chest N/A Nuclear Medicine us Scanning Provider External CV STRESS ORDERABLES Final Result documented in this encounter Visit Diagnoses Not on filedocumented in this encounter Care Teams Pack Worker Relationship Specialty Start Date End Date Sascha Larsen DO [address], [facility] [place] [address] PCP - General Family Medicine 09/23/22 documented as of this encounter
--- NOTE | 2025-07-14 14:08 | XR_ITS ---
[facility] [place] [id number] Patient Name: MARVA TORRE MRN: [id number] date: 1955 Sex: M Assigned Patient Location: ED.MAIN Current Patient Location: ED.MAIN Accession/Order Number: [id number] Exam Date: 07/14/2025 14:15 Report Date: 07/14/2025 14:31 At the request of: TRICE GALINDO DO Procedure: XR chest 1V XR chest 1V 07/14/2025 2:21 PM SIGNS AND SYMPTOMS: Syncopal episode, found unresponsive PROTOCOL: Frontal radiograph of the chest COMPARISON: 06/07/2025 FINDINGS: The trachea is midline. The heart and mediastinal structures are within normal limits. The lung parenchyma is clear. The bony thorax is intact. Degenerative changes are noted in the right shoulder. XR/XR chest 1V IMPRESSION: No acute cardiopulmonary pathology. Impression dictated by: Cy Bill M.D. 07/14/2025 2:31 PM Dictation Location: [place] [address] Electronically authenticated by: [id number] Y Date: 07/14/2025 14:31
--- NOTE | 2025-07-14 14:10 | ECG_ITS ---
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
--- OUTSIDE RECORDS SUMMARY | 2025-07-14 14:10 | XMS_ITS | CCD ---
Author Organization [facility] Care Team Providers Care [employer] Name Role Phone REBEKAH REED Unavailable Unavailable REBEKAH REED Unavailable Unavailable DO Sascha Sutton Primary Care Provider [phone] MD Adam Davis Attending Provider DO Sascha Sutton Primary Care Provider WILLOW Sanchez Attending Provider KARIN Ibrahim Attending Provider DO Sascha Sutton Primary Care Provider WILLOW Sanchez Attending Provider DO Sascha Sutton Primary Care Provider [phone] WILLOW Sanchez Attending Provider PAY ., DR FERNANDEZ Admitting Unavailable BALJINDER, DR PRIMO De Oliveira Consulting Unavailable HERMAN, DR SASCHA Candelaria Primary Care Unavailable PAY ., DR FERNANDEZ Attending Unavailable MAGDY ., MATT DONOHUE Consulting Unavailabl SHAIKH Claritza Menendez Attending Unavailable SHAIKH Claritza MULTANI Admitting Unavailable BALJINDER, DR PRIMO De Oliveira Consulting Unavailable HERMAN, DR SASCHA Candelaria Primary Care Unavailable ROBETRA WOOD Consulting Unavailable JOSÉ MIGUEL NOVOA Consulting Unavailable SHAIKH Claritza MULTANI Consulting Unavailable GAVIN MINER Consulting Unavailable Sascha Sutton Unavailable Unavailable Unavailable DO Melanie Trujillo Attending Provider Dr. Alfonso Trujillo Attending Unava ilable Herman, Dr. Sascha Espinoza Primary Care Nikkiva ildonaldo Trujillo, Dr. Alfonso Parham Attending Jennie Trujillo, Dr. Alfonso Parham Referring Unava miguel Sutton, Dr. Sascha Espinoza Primary Care Unava ilable Herman, DO Sascha Primary Care Provider [phone] Jaleesang, DO Sascha Attending Provider MD Edenilson Reinoso Jr Emergency Provider DO Romel Orta Emergency Provider Unava MD Zac Aguirre Attending Provider FILI Sanchez-C Christine Gaviria Attending Provider MD Zac Muniz Referring Provider SASCHA SUTTON Primary Care Physician Herman, DO Sascha Primary Care Provider [phone] MD Zac Muniz Attending Provider Furlong, DO Sascha Primary Care Provider MD Zac Muniz Attending Provider Furlong, DO Sascha Primary Care Provider MD Romel Davis Attending Provider Herman, DO Sascha Primary Care Provider MD Zac Muniz Attending Provider [phone] MD Romel Davis Attending Provider Herman, DO Sascha Primary Care Provider MD Romel Davis Attending Provider [phone] MD Zac Muniz Attending Provider Herman, DO Sascha Primary Care Provider MD Romel Davis Attending Provider Herman, DO Sascha Attending Provider SASCHA SUTTON Referring Unavailable SASCHA SUTTON Primary Care Unavailable Unavailable Primary Care Provider Unavailojnathan e Furlong MD, Sascha G Primary Care Provider WILLOW Hernandez Attending Provider Мария Hernandez Unavailable MD Edenilson Reinoso Jr Emergency Provider Furlong, DO Sascha Primary Care Provider MD Romel Davis Attending Provider Furlong, DO Sascha Attending Provider WILLOW Hernandez Attending Provider MD Edenilson Reinoso Jr Emergency Provider MD Zac Muniz Attending Provider [phone] FURLONG, SASCHA G Referring Unavailable FURLONG, SASCHA [...] Care Provider MD Mckenzie Khalil Attending Provider [phone] Furlong, DO Sascha Primary Care Provider Furlong, DO Sascha Primary Care Provider MD Mckenzie Khalil Attending Provider MD Edenilson Mcleod Primary Care Provider MD Romel Davis Attending Provider MD Jaime Murcia II Attending Provider RaymundoMARCOS gómez Attending Provider Edenilson Mcleod MD Primary Care Provider Jaime Murcia MD Attending Provider Raymundo Myriam RODRÍGUEZ Attending Provider [phone] Furlong DO, Sascha Primary Care Provider Romel Davis MD Attending Provider Mckenzie Khalil MD Unavailable Murcehima Carlos W Unavailable Mckenzie Khalil MD Unavailable Furloosmani DO, Sascha G Primary Care Provider Edenilson Mcleod MD Primary Care Provider [phone] Jaime Murcia MD Attending Provider Furlong DO, Sascha Attending Provider [phone] Mckenzie Khalil MD Unavailable Furlong DO, Sascha Primary Care Provider Matthew Harrell PA-C Emergency Provider Romel Davis MD Attending Provider Sascha Sutton MD Primary Care Provider Furlong DO, Sascha Primary Care Provider Jaime Murcia MD Attending Provider Furlong DO, Sascha Attending Provider [phone] Matthew Harrell PA-C Emergency Provider Romel Davis MD Attending Provider Furcierra DO, Sascha Primary Care Provider Jaime Murcia MD Attending Provider Martha Gomes MD Emergency Provider [phone] Marley Dumont MD Admit Provider Debbie Dumont MDh M Attending Provider Gabi Almanzar MD Attending Provider Vernell ONEAL, Rita Other Provider Furlong DO, Sascha G Primary Care Provider Evaristo ONEAL, Mckenzie Unavailable Furlong DO, Sascha Primary Care Provider Furlong DO, Sascha Attending Provider [phone] Furlong DO, Sascha Primary Care Provider Romel Davis MD Attending Provider [phone] Furlong DO, Sascha Primary Care Provider [phone] Twin ONEAL, Jaime Chapa Attending Provider Laura FISHERIES DIRECTOR-C, Christine Gaviria Attending Provider FURLONG, SASCHA G Attending Unavailable FURLONG, SASCHA [...] Care Unavailable MYRA ORLANDO Attending Unavailable FURLONG, SASCHA G Referring Unavailable FURLONG, SASCHA G Primary Care Unavailable MUNIZ, Zac R Attending Unavailable UMNIZ, Zac R Attending Unavailable MUNIZ, Zac R Referring Unavailable MUNIZ, Zac R Attending Unavailable MUNIZ, Zac R Attending Unavailable MUNIZ, Zac R Attending Unavailable MUNIZ, Zac R Attending Unavailable MUNIZ, Zac R Attending Unavailable MUNIZ, Zac R Attending Unavailable MUNIZ, Zac R Attending Unavailable Furlong DO, Sascha Esther Primary Care Provider Furlong DO, Sascha Primary Care Provider [phone] Oblukas FISHERIES DIRECTOR-C, Christine Gaviria Other Provider [phone] Dante Simmons MD Attending Provider Melanie Trujillo DO Attending Provider [phone] CARLOS EDEN Attending Unavailable TAYLORWHIT JASSO Attending Unavailable KALI CONKLIN Attending Unavailable KALI CONKLIN Attending Unavailable BROWN, KALI Grimaldo Attending Unavailable BROWNKALI A Attending Unavailable BROWN, KALI A Attending Unavailable TAYLORWHIT JASSO Attending Unavailable KATERIN, KALI Grimaldo Attending Unavailable SHABNAM CONNELL Attending Unavailable BROWN, KALI A Attending Unavailable BROWN, KALI A Attending Unavailable TAYLORWHIT Attending Unavailable BROWN, KALI A Attending Unavailable BROWN, KALI A Attending Unavailable KALI CONKLIN A Referring Unavailable ALFONSO TRUJILLO Attending Unavailable FURLONG, SASCHA ESTHER Primary Care Unavailab le LIORALFONSO Referring Unavailable FURLONG, SASCHA ESTHER Primary Care Unavailab le Furlong, Sascha Primary Care Unavailable Romel Davis Attending Unavailable Romel Davis Admitting Unavailable Furlong, Sascha Primary Care Unavailable Matthew Harrell Attending Unavailable Matthew Harrell Admitting Unavailable Furlong, Sascha Primary Care Unavailable ObermeyerChristine Attending Unavailable ObermeyerChristine Admitting Unavailable Furlong, Sascha Primary Care Unavailable Furlong, Sascha Attending Unavailable Furlong, Sascha Admitting Unavailable Jaime Murcia II Admitting Unavailabl e Jamie Murcia II Attending Unavailabl e Furlong, Sascha Primary Care Unavailable Marley Dumont Admitting Unavailable Gabi Almanzar Attending Unavailable Rita Matt Unavailable Furlong, Sascha Primary Care Unavailable Furlong, Sascha Primary Care Unavailable Davis, Romel Admitting Unavailable Davis, Romel Attending Unavailable Davis, Romel Attending Unavailable Davis, Romel Admitting Unavailable Felter, Edenilson Primary Care Unavailable [place] II, Jaime Chapa Attending Unavailabl e [place] II, Jaime M Admitting Unavailabl e Felter, Edenilson Primary Care Unavailable RaymundoMyriam M Attending Unavailable Raymundo, Myriam M Admitting Unavailable Felter, Edenilson Primary Care Unavailable [place] II, Jaime M Admitting Unavailabl e Twin II, Jaime Chapa Attending Unavailabl e Furlong, Sascha Primary Care Unavailable Furlong, Sascha Primary Care Unavailable Melanie Trujillo Attending Unavailable Melanie Trujillo Admitting Unavailable Furlong, Sascha Primary Care Unavailable [place] II, Jaime M Admitting Unavailabl e Twin II, Jaime M Attending Unavailabl e Furlong, Sascha Primary Care Unavailable [place] II, Jaime Chapa Admitting Unavailabl e Twin II, Jaime Chapa Attending Unavailabl e Furlong, Sascha Primary Care Unavailable Furlong, Sascha Attending Unavailable Furlong, Sascha Admitting Unavailable Furlong, Sascha Primary Care Unavailable Ryan, Romel Attending Unavailable Davis, Romel Admitting Unavailable Allergies Allergy Classification Reported Allergen(s) Allergy Type Date of Onset Reaction(s) Facility Calcium Carbonate (4 sources) Calcium Carbonate Drug Allergy 04-09-20 [facility] Cephalosporins (antibiotic) (8 sources) Cephalexin Drug Allergy 04-09-20 Unknown Reaction [facility] Magnesium (4 sources) Magnesium Drug Allergy 04-09-20 [facility] Opioid Agonists (4 sources) oxyCODONE Drug Allergy 04-09-20 Hallucinating [facility] Sulfonamides (antibiotic) (4 sources) Sulfonamides (Antibiotic) Drug Allergy 04-09-20 Rash [facility] (20 sources) cephalexin; Translations: [CEPHALEXIN] Drug Allergy 04-25-20 Unknown (qualifier value), Unknown [facility] Other [place] Repository (20 sources) oxyCODONE; Translations: [OXYCODONE] Drug Allergy 04-25-20 18 Hallucinations (finding), Hallucinations [facility] Repository (20 sources) Sulfonamides (Antibiotic); Translations: [SULFA (SULFONAMIDE ANTIBIOTICS)] Propensity to adverse reactions to drug (disorder) 05-20-20 14 Other (See Comments), Rash [facility] Repository (2 sources) ASPIRIN, BUFFERED; Translations: [ASPIRIN, BUFFERED] Propensity to adverse reactions to drug (disorder) 04-25-20 18 AOF [facility] Repository (20 sources) Calcium Carbonate; Translations: [CALCIUM CARBONATE] Drug Allergy 07-19-20 19 GI intolerance, Nausea [facility] Comment on above: Is able to take aspi rin (20 sources) Cephalosporins (Antibiotic); Translations: [Cephalosporins] Allergy to substance 05-20-20 14 Unknown, Other (See Comments) [facility] (20 sources) Magnesium; Translations: [MAGNESIUM] Drug Allergy 07-19-20 19 GI intolerance, GI Disturbance, Nausea [facility] Comment on above: Is able to take aspi rin (1 source) Sulfonamides (Antibiotic) Drug allergy (disorder) [facility] Repository (4 sources) Sulfamethoxazole; Translations: [sulfa] Drug Allergy Unknown [facility] 250 DO Work Phone: (11 sources) Sulfonamides (Antibiotic); Translations: [sulfa drugs] Drug allergy Unknown (qualifier value) [facility] (20 sources) ASPIRIN,BUFFD-ELIZABETH CIUM CARB-MAG; Translations: [ASPIRIN,BUFFD-CA LCIUM CARB-MAG] Propensity to adverse reactions to drug (disorder) 09-29-20 22 Vomiting, Nausea/vomiting [facility] Repository (20 sources) Aspirin Drug Allergy 10-13-20 15 [facility] (20 sources) Sulfonamides (Antibiotic) Drug Allergy 05-20-20 14 Rash [facility] [employer] (1 source) Aspirin Drug Allergy Unknown [place] [employer] Other (1 source) Sulfacetamide in [place] Drug allergy Unknown [facility] [employer] Other Medications Current Medications Medication Drug Class(es) Dates Sig (Normalized) Sig (Original) acetaminophen 500 mg oral tablet (20 sources) Start: 05-09-2023 acetaminophen (Tylenol) 500 MG tablet Take by mouth 05/09/2023 Active Start: 05-09-2023 End: 02-16-2025 take 2 tablets by mouth every six hours as needed for pain Acetaminophen (Tylenol Extra Strength) 500 mg tablet Discontinued 1000 MG PO Every 6 hours as needed for fever or pain January 12, 2025 1:00am February 16, 2025 3:00pm Start: 05-09-2023 take 2 tablets by mo uth three times daily as needed for pain acetaminophen (TYLENOL EXTRA STRENGTH) 500 mg tablet Take 2 tablets (1,000 mg total) by mouth 3 (three) times a day as needed for pain. 05/09/2023 Active Start: 03-31-2023 Start: 03-31-2023 Acetaminophen Active 1000 MG PO [...] 2018 1:00am July 24, 2019 3:26pm take 2 tablets by mo ut twice daily acetaminophen (Tylenol) 500 mg tablet Take 2 tablets (1,000 mg) by mouth twice a day. Active take 1 tablet by christopher every eight hours Acetaminophen Extra Strength 500 [...] Aggregation Inhibitor, Nonsteroidal Anti-inflammatory Drug Start: 04-02-2024 Start: 09-19-2023 take 1 mg by mouth [...] dose nasal spray (20 sources) Corticosteroid budesonide (Rhin ocort AQ) 32 MCG/ACT nasal spray 62,500 sprays Active budesonide (GUSTAVO KEYLA AQUA) 32 mcg/actuation nasal spray 62,500 sprays. Active Budesonide / formoterol (3 sources) Corticosteroid, beta2-Adrenergic Agonist Start: 05-28-2025 take 2 puff(s) by inhalation in the morning budesonide-formoteroL (SYMBICORT) 80-4.5 mcg/actuation inhaler Indications: Moderate persistent asthma, unspecified whether complicated Inhale 2 puffs in the morning and 2 puffs before bedtime. 10.2 g 5 05/28/2025 Active take 2 puff(s) by mouth twice da tashi budesonide-formoterol (Symbicort) 80-4.5 mcg/actuation inhaler Inhale 2 puffs 2 times a day. Rinse mouth with water after use to reduce aftertaste and incidence of candidiasis. Do not swallow. Active budesonide-formoterol 80 mcg-4.5 mcg/inh Inh Aer w/adapter (1 source) Start: 06-12-2025 budesonide-formoterol 80 mcg-4.5 mcg/inh Inh Aer w/adapter 2 inh, Refill(s) 0 Start Date: 06/12/25 Status: Ordered Repeat number: 1 carboxymethylcellulose 0.01 mg/mg ophthalmic gel (20 sources) Start: 03-31-2023 apply 1 drop(s) into the eye(s) once daily as needed Start: 03-31-2023 apply 1 drop(s) into the [...] Orally Active dexamethasone 2 mg oral tablet (9 sources) Corticosteroid Start: 03-21-2025 End: 03-30-2025 take 1 tablet by mouth once daily dexAMETHasone (Decadron) 2 MG tablet Indications: Piriformis syndrome of right side Take 1 tablet by mouth once daily for 7 days. 7 tablet 1 03/21/2025 Active diclofenac sodium 0.01 mg/mg topical gel (13 sources) Nonsteroidal Anti-inflammatory Drug Start: 01-12-2025 Start: 01-12-2025 Diclofenac Sod ium (Voltaren Arthritis [...] of hand dutasteride 0.5 mg oral capsule (10 sources) 5-alpha Reductase Inhibitor Start: 04-29-2025 End: 04-24-2026 take 1 capsule by mouth once daily dutasteride 0.5 mg Cap 0.5 mg = 1 cap(s), Oral, Daily, X 30 day(s), # 30 cap(s), Refills(s) 11, Pharmacy: [facility]/pharmacy #[id number], 173, cm, 04/29/25 9:39:00 EDT, Height/Length Dosing, 99, kg, 04/29/25 9:39:00 EDT, Weight Dosing Start Date: 04/29/25 Stop Date: 04/24/26 Status: Ordered Quantity: 30.0 Unit: cap(s) Repeat number: 12 eyelid cleanser combination 3 (OCUSOFT LID SCRUB PLUS TOP) (1 source) eyelid cleanser combination 3 (OCUSOFT LID SCRUB PLUS TOP) Apply topically. Active fexofenadine (10 sources) Histamine-1 Receptor Antagonist Start: 05-09-2023 Seema D OTC 24HR Oral, Daily, Refill(s) 0 Start Date: 05/09/23 Status: Ordered Repeat number: 1 Start: 05-09-2023 Seema D OTC 24HR Oral, Daily, Refill(s) 0 Start Date: 05/09/23 Status: Ordered 24 hr fexofenadine hydrochloride 180 mg / pseudoephedrine hydrochloride 240 mg extended release oral tablet (20 sources) alpha-Adrenergic Agonist, Histamine-1 Receptor Antagonist Start: 03-31-2023 take 1 tablet by mouth once daily as needed, then take 1 tablet by mouth every twenty-four hours as needed Start: 03-31-2023 take 1 tablet by christopher [...] Start: 03-31-2023 take 1 tablet by christopher once daily, then take 1 tablet by mouth every twenty-four hours Fexofenadine-Pseudoephedrine (Seema-D 24 Hour) 180-240 mg Tablet Extended Release 24 Hr Active 1 TAB PO Daily March 30, 2023 11:00pm Start: 03-31-2023 take 1 tablet by christopher once daily, then take 1 tablet by mouth every twenty-four hours Fexofenadine-Pseudoephedrine (Seema-D 24 Hour) 180-240 mg Tablet Extended Release 24 Hr Active 1 TAB PO Daily March 31, 2023 12:00am take 1 tablet by christopher twice daily fexofenadine-pseudoephedrine (Seema-D) 60-120 mg 12 hr tablet Take 1 tablet by mouth 2 times a day. Do not crush, chew, or split. Active take 1 tablet by christopher once as needed fexofenadine-pseudoephedrine (SEEMA-D 24) 180-240 mg per 24 hr tablet Take 1 tablet by mouth as needed. Active take 1 tablet by christopher once daily as needed Fexofenadine-Pseudoephedrine (SEEMA-D 24 HOUR PO) Take 1 tablet by mouth Daily as needed Active 30 actuat fluticasone furoate 0.1 mg/actuat / umeclidinium 0.0625 mg/actuat / vilanterol 0.025 mg/actuat dry powder inhaler (2 sources) Anticholinergic, Corticosteroid, beta2-Adrenergic Agonist Start: 09-24-2024 End: 10-08-2024 take 1 puff(s) by inhalation once daily pbxkxmsoopv-sqzgttktm-brkpoqos (TRELEGY ELLIPTA) 100-62.5-25 mcg blister with device Inhale 1 puff once daily for 14 days. 1 each 09/24/2024 10/08/2024 Active folic acid 1 mg oral tablet (20 sources) Start: 05-09-2023 folic acid (Folvite) 1 MG tablet folic acid 1 mg tablet 05/09/2023 Active Start: 04-25-2018 take 1 tablet by mouth twice d aily Start: 04-25-2018 take 1-2 mg by mouth once baldomero y Folic Acid Active 1 - 2 MG PO Daily April 25, 2018 12:00am gabapentin 100 mg oral capsule (14 sources) Anti-epileptic Agent Start: 04-16-2025 End: 05-15-2026 take 1 capsule by mouth in the morning, then take 1 capsule by mouth in the evening, then take 1 capsule by mouth at bedtime gabapentin (Neurontin) 100 MG capsule Indications: Intention tremor Take 1 capsule (100 mg) by mouth in the morning and 1 capsule (100 mg) in the evening and 1 capsule (100 mg) before bedtime. 270 capsule 3 05/15/2025 05/15/2026 Active hydroCHLOROthiazide 12.5 mg oral tablet (1 source) Thiazide Diuretic take 1 tablet by mouth once daily hydroCHLOROthiazide (Microzide) 12.5 mg tablet Take 1 tablet (12.5 mg) by mouth once daily. Active hydroCHLOROthiazide 12.5 mg / lisinopril 20 mg oral tablet (20 sources) Thiazide Diuretic, Angiotensin Converting Enzyme Inhibitor Start: 09-19-2023 take 1 tablet by mouth in the morning lisinopril-hydroCHLORO thiazide 20-12.5 MG tablet Take 1 tablet by mouth in the morning. 08/29/2024 Active Start: 05-12-2019 End: 02-24-2025 take 1 tablet by mouth once daily in the morning hydroxychloroquine sulfate 200 mg oral tablet (20 sources) Antimalarial, Antirheumatic Agent Start: 05-09-2023 take 1 mg by mouth once daily hydroxychloroquine 200 mg Tab mg tab(s), Oral, Daily, Refills(s) 0 Start Date: 05/09/23 Status: Ordered Repeat number: 1 Start: 04-25-2018 take 1 tablet by christopher twice daily hydroxychloroquine (Plaquenil) 200 MG tablet hydroxychloroquine 200 mg tablet TAKE 1 TABLET BY MOUTH TWICE A DAY 05/09/2023 Active leflunomide 10 mg oral tablet (20 sources) Antirheumatic Agent Start: 04-25-2018 leflunomid e (Arava) 10 MG tablet 07/23/2024 Active leucovorin 5 mg oral tablet (20 sources) Folate Analog Start: 04-25-2018 take 1 tablet by mouth every week take 1 tablet by mouth once baldomero y leucovorin (Wellcovorin) 5 mg tablet Take 1 tablet (5 mg total) by mouth once daily. Take with a full glass of water. Active lidocaine 0.05 mg/mg medicated patch (13 sources) Antiarrhythmic, Amide Local Anesthetic Start: 01-12-2025 apply 1 dose topically every twenty-four hours lisinopril 20 mg oral tablet (20 sources) [...] (Duplicate order) Start: 08-29-2024 End: 12-17-2024 meloxicam (Mobic) 15 MG tabl et 08/29/2024 Active 2 ml methotrexate 25 mg/ml injection (20 sources) Folate Analog Metabolic Inhibitor Start: 10-08-2024 Methotrexate Sodium (methotrexate PF) 50 MG/2ML syringe 10/08/2024 Active Start: 10-08-2024 methotrexate s odium/PF (methotrexate, PF,) 25 mg/mL 1 mL (25 mg) 1 (one) time per week. 10/08/2024 Active Start: 05-09-2023 inject 1 mg intravenously once methotrexate 1 g injection mg/m2, IV, Once, Refills(s) 0 Start Date: 05/09/23 Status: Ordered Repeat number: 1 Start: 05-09-2023 inject 1 mg intravenously once methotrexate 1 g injection mg/m2, IV, Once, Refills(s) 0 Start Date: 05/09/23 Status: Ordered Start: 11-05-2018 inject 25 mg by subc utaneous injection every week Start: 11-05-2018 inject 25 mg by subc utaneous injection every week Methotrexate Sodium Active 25 MG SUBCUT every week November 05, 2018 1:00am taken on saturdays End: 12-17-2024 methotrexate (Xatmep) 2.5 MG /ML oral solution Take 2.5 mg by mouth Active methotrexate, PF , 25 mg/mL chemo syringe Active Methotrexate 2.5 MG 1 needle Orally [...] as directed 21 tablet 01/30/2025 Active Start: 05-09-2023 End: 03-27-2025 take 1 tablet by mouth once as needed Methylprednisolone (Medrol (Nicolas)) 4 mg tablets,dose pack Discontinued 0 PO per package directions as needed for pain January 12, 2025 1:00am March 27, 2025 8:17am orally per package directions PRN; PO PER PKG DIR Start: 11-05-2018 End: 07-24-2019 take 1 tablet [...] Antagonist Start: 04-25-2018 End: 05-27-2025 take 1 tablet by mouth once daily in the evening nabumetone 750 mg oral tablet (20 sources) [...] DO Active naproxen 250 mg oral tablet (13 sources) Nonsteroidal Anti-inflammatory Drug Start: 02-16-2025 take 1 tablet by mouth twice daily as needed for pain polyvinyl alcohol 0.014 ml/ml / povidone 6 mg/ml ophthalmic solution (1 source) lubricating eye drops ophthalmic solution 1 drop if needed for dry eyes. Active Potassium Bicarb-Citric Acid (Klor-Con/Ef) 25 mEq tablet, effervescent (20 sources) Start: 04-02-2024 Potassium Bicarb-Citric Acid (Klor-Con/Ef) 25 mEq tablet, effervescent Active 25 MEQ PO Twice daily April 01, 2024 11:00pm Start: 04-02-2024 Potassium Bica rb-Citric Acid (Klor-Con/Ef) 25 mEq tablet, effervescent Active 25 MEQ PO Twice daily April 02, 2024 12:00am potassium bicarbonate 25 meq effervescent oral tablet (20 sources) Start: 12-14-2023 Potassium Chloride (1 source) Klor-Con 10 Active prednisoLONE acetate 10 mg/ml ophthalmic suspension (20 sources) Corticosteroid Start: 04-02-2024 take 1 drop(s) into the eye(s) three times daily as needed Start: 04-02-2024 take 1 drop(s) into the eye(s) three times daily as needed Prednisolone Acetate (Pred Forte) 1 % drops,suspension Active 1 DROPS EYE-RIGHT Three times daily as needed for iritis April 02, 2024 12:00am Start: 08-22-2023 prednisoLONE a cetate (Pred-Forte) 1 [...] 3:25pm taper as directed/ Right Eye take 1 drop(s) into the eye(s) four times daily prednisoLONE acetate (Pred-Forte) 1 % ophthalmic suspension 1 drop 4 times a day. Active take 2 drop(s) into the eye(s) four [...] 03/21/2025 Discontinued (Reorder) Start: 01-03-2025 End: 03-21-2026 take 1 tablet by mouth once daily, then take 3 tablets by mouth at bedtime primidone (Mysoline) 50 MG tablet Indications: Intention tremor Take 1 tablet (50 mg) by mouth Daily AND 3 tablets (150 mg) at bedtime. 360 tablet 3 03/21/2025 03/21/2026 Active Start: 12-19-2024 End: 01-18-2025 take 0.5 tablet [...] Inhibitor Start: 07-19-2019 End: 05-27-2025 take 1 tablet by mouth once daily in the evening Start: 04-25-2018 End: 07-19-2019 take 1 tablet [...] # 60 cap(s), Refills(s) 0, Pharmacy: [facility]/pharmacy #[id number], 173, cm, 09/19/23 9:41:00 EDT, Height/Length Dosing, 97.5, kg, 09/19/23 9:41:00 EDT, Weight Dosing Start Date: 01/03/24 Stop Date: 02/02/24 Status: Ordered Start: 05-09-2023 End: 06-08-2023 take 1 capsule by mouth twice daily Flomax 0.4 mg Cap 0.4 mg = 1 cap(s), Oral, BID, X 30 day(s), # 60 cap(s), Refills(s) 0, Pharmacy: [facility] [id number], 173, cm, 05/09/23 16:02:00 EDT, Height/Length Dosing, [...] every eight hours as needed for pain Start: 11-05-2018 End: 07-26-2019 take 100 mg by mouth every eight hours Tramadol Active 100 MG PO Q8H 0 July 26, 2019 7:13am take 1 tablet by christopher th twice daily traMADol (Ultram) 50 mg tablet Take 1 tablet (50 mg) by mouth 2 times a day. Active take 1 tablet by christopher th every twelve hours as needed traMADol HCl - 50 MG Oral Tablet TAKE 1 TABLET EVERY 12 HOURS NEEDED. Quantity: 0 Refills: 0 Ordered: 30-Mar-2023 DO Active triamcinolone acetonide 0.05 5 mg/actuat metered dose nasal spray (20 sources) Corticosteroid Start: 03-31-2023 Start: 03-31-2018 Kenalog -40 mg March, 10 [...] Every 6 hours as needed for pain 19 06April 10, 2024 January 12, 2025 12:57pm Start: 05-03-2023 End: 03-29-2024 take 1 tablet by mouth every six hours as needed for pain Hydrocodone-Acetaminophen 5-325 mg table t Discontinued 1 - 2 TAB PO Q6H as needed for pain 15 January 03, 2024 March 29, 2024 11:09am Start: 05-12-2019 End: 07-19-2019 take 1 tablet by mouth once daily at bedtime as needed for pain Hydrocodone-Acetaminophen (Jerome) 5-325 mg tablet Discontinued 1 TAB PO Daily at bedtime as needed for pain 14 May 12, 2019 July 19, 2019 10:35am Start: 04-25-2018 End: 11-05-2018 take 1 tablet by mouth every four to six hours as needed for pain Hydrocodone-Acetaminophen (Jerome) 5-325 mg tablet Discontinued 1 - 2 [...] completed., # 2 tab(s), Refills(s) 0, Pharmacy: [facility]/pharmacy #[id number], 173, cm, 04/29/25 9:39:00 EDT, Height/Length [...] tablet Discontinued 100 MG PO Twice daily 08 25July 10, 2018 12:00am November 05, 2018 1:17pm Effervescent Potassium 25 mEq oral tablet (8 sources) Start: 09-11-2024 End: 09-06-2025 take 1 tablet by mouth twice daily Effervescent Potassium 25 mEq oral tablet 25 mEq = 1 tab(s), Oral, BID, X 90 day(s), # 180 tab(s), Refills(s) 3, Pharmacy: [facility]/pharmacy #[id number], 173, cm, 09/03/24 10:19:00 EDT, Height/Length [...] # 180 tab(s), Refills(s) 3, Pharmacy: [facility]/pharmacy #[id number], 173, cm, 09/19/23 9:41:00 EDT, Height/Length [...] March 31, 2023 8:40am Left nostril only take 1 spray(s) nasal route once daily fluticasone (Flonase) 50 MCG/ACT nasal spray Administer 1 spray into each nostril Daily Shake gently. Before first use, prime pump. After use, clean tip and replace cap. Active take 2 spray(s) nasal route once daily fluticasone (Veramyst) 27.5 mcg/actuation nasal spray Administer 2 sprays into each nostril once daily. Active fluticasone prop ionate (FLONASE) 50 mcg/actuation nasal spray 1 spray in the morning. Active 12 hr guaiFENesin 600 mg / [...] oral tablet (20 sources) Opioid Agonist Start: End: take 1 tablet by mouth every six hours as needed for pain Hydromorphone (Dilaudid) 4 mg tablet Discontinued 4 MG PO Q6H as needed for pain April 29, 2018 November 05, 2018 1:25pm ketorolac tromethamine 10 mg oral tablet (7 sources) Nonsteroidal Anti-inflammatory Drug, Cyclooxygenase Inhibitor Start: take 1 tablet by mouth twice daily as needed for pain ketorolac 10 mg Tab 10 mg = 1 tab(s), Oral, BID, PRN for pain, Take one tab by mouth up to twice daily for pain., # 30 tab(s), Refills(s) 0, Pharmacy: [facility] [id number], 173, cm, 05/09/23 16:02:00 EDT, Height/Length Dosing, 97.5, kg, 05/09/23 16:02:00 EDT, Weight Dosing Start Date: 05/09/23 Status: Ordered levoFLOXacin 500 mg oral tablet (20 sources) Quinolone Antimicrobial Start: End: take 1 tablet by mouth once daily Levofloxacin 500 mg tablet Discontinued 500 MG PO Daily 5 January 03, 2024 1:00am March 29, 2024 11:11am Methotrexate Sodium (Pf) 50 mg recon soln (8 sources) Start: End: Methotrexate Sodium (Pf) 50 mg recon soln Discontinued 50 MG .Route .weekly February 15, 2025 12:00am February 16, 2025 3:00pm nitroglycerin 0.4 mg sublingual tablet (20 sources) Nitrate Vasodilator Start: End: take 1 tablet under the tongue [...] 02/25/2025 04/16/2025 Discontinued (Dose adjustment) Start: 10-23-2022 End: 02-25-2025 omeprazole (PriLOSEC) [address] capsule 10/11/2024 Active Start: 10-23-2022 take 1 capsule by mo uth once daily before mealtime omeprazole (PriLOSEC) [address] capsule Take 1 capsule (40 mg) by mouth once daily in the morning. Take before meals. 10/11/2024 Active Start: 04-25-2018 End: 02-16-2025 take [...] capsule (1 source) take 1 capsule by [facility] every twenty-four hours Vitamin E [...] persistent asthma, uncomplicated] Onset: 05-28-2025 05-28-2025 Chronic Cancer; other and unspecified primary (20 sources) Malignant neoplasm of eye; Translations: [Malignant neoplasm of unspecified site of unspecified eye] Onset: 05-28-2024 Resolved: 06-14-2024 01-19-2024 Chronic Cardiac dysrhythmias (20 sources) Multiple premature ventricular complexes; Translations: [Ventricular premature depolarization] Onset: 02-15-2025 02-16-2025 Chronic Coagulation and hemorrhagic disorders (20 sources) Lupus anticoagulant disorder; Translations: [Primary hypercoagulable state] Onset: 09-29-2022 05-28-2024 Chronic Coronary atherosclerosis and other heart disease (1 source) Atherosclerotic heart disease of [place] coronary artery without angina pectoris; Translations: [ASHD [place] CA W/O ANGINA PECTORIS] Onset: 03-28-2023 Chronic Diseases of white blood cells (20 sources) Leukocytosis; Translations: [Elevated white blood cell count, unspecified] Onset: 05-28-2024 01-03-2024 Chronic Disorders of lipid metabolism (20 sources) Hyperlipidemia, unspecified; Translations: [Hyperlipidemia] Onset: 03-28-2023 01-19-2024 Chronic E Codes: Fall (20 sources) Fall from chair, initial encounter; Translations: [Fall] Onset: 04-13-2022 01-12-2025 Episodic E Codes: Fall (1 source) Fall Onset: [...] awareness] Onset: 03-19-2024 Chronic Headache; including migraine (20 sources) Cluster headache; Translations: [Cluster headache syndrome, unspecified, not intractable] Onset: 09-29-2022 05-28-2024 Chronic Hyperplasia of prostate (20 sources) Benign prostatic hypertrophy without outflow obstruction; Translations: [Benign prostatic hyperplasia without lower urinary tract symptoms] Onset: 03-20-2024 Chronic Mycoses (8 sources) Pain in toe; Translations: [Tinea unguium] [...] Translations: [Spondylolisthesis] 02-09-2024 Episodic Other acquired deformities (11 sources) Acquired unequal leg length; Translations: [Unequal limb length (acquired), unspecified site] 12-06-2024 Episodic Other aftercare (1 source) Other terminal press operator (current) drug therapy; Translations: [OTH CLINICAL SUPERVISOR CURRENT DRUG THERAPY] Onset: 03-28-2023 Episodic Other aftercare (1 source) continuous churn buttermaker (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) use of aspirin; Translations: [CLINICAL SUPERVISOR CURRENT USE OF ASPIRIN] Onset: 03-28-2023 Episodic Other aftercare (1 source) High risk drug monitoring status; Translations: [prison (current) use of opiate analgesic] Episodic Other [...] toe(s)] 08-17-2024 Episodic Other connective tissue disease (17 sources) Trochanteric bursitis; Translations: [Trochanteric bursitis, right hip] 11-09-2024 Episodic Other connective tissue disease (19 sources) Trochanteric bursitis, right hip; Translations: [Enthesopathy of hip region] Onset: 04-18-2025 11-09-2024 Episodic Other connective tissue disease (9 sources) Tenosynovitis; Translations: [Tenosynovitis of right lower leg] 01-30-2025 Episodic Other connective tissue disease (11 sources) Iliotibial band friction syndrome of right [...] Episodic Other diseases of veins and lymphatics (4 sources) Lymphedema; Translations: [Lymphedema, not elsewhere classified] 04-10-2025 Chronic Other diseases of veins and lymphatics (5 sources) Lymphedema of bilateral lower limbs; Translations: [...] conditions due to external causes (4 sources) Other injury of other muscle(s) and [...] leg] 12-28-2023 Episodic Other non-traumatic joint disorders (16 sources) Instability of right hip joint; Translations: [Other instability, right hip] 10-17-2024 Episodic Other non-traumatic joint disorders (13 sources) Effusion of right knee joint; Translations: [...] nutritional; endocrine; and metabolic disorders (3 sources) Body mass index 30+ - obesity; Translations: [Body mass index (BMI) 31.0-31.9, adult] Onset: 06-20-2025 06-20-2025 Chronic Other nutritional; endocrine; and metabolic disorders [...] (BMI) of 35.0 to 35.9 in adult ([facility])] Onset: 04-15-2023 05-28-2025 Chronic Other nutritional; endocrine; and metabolic disorders (1 source) Other obesity due to excess calories; Translations: [Other obesity due to excess calories] Onset: 12-14-2023 Chronic Other nutritional; endocrine; and metabolic disorders (2 sources) Body mass index (BMI) 34.0-34.9, adult; Translations: [Body mass index (BMI) 34.0-34.9, adult] Onset: 06-20-2025 Chronic Other skin disorders (3 sources) Fissure in skin; Translations: [Changes in skin texture] 01-10-2025 Episodic Other skin disorders (8 sources) Asteatosis cutis; Translations: [Xerosis cutis] 01-30-2025 Episodic Other upper respiratory disease (20 sources) Allergic rhinitis; Translations: [Allergic rhinitis, unspecified] Onset: 07-28-2017 05-28-2024 Chronic Residual codes; unclassified (1 source) Postprocedural state finding; Translations: [Other specified postprocedural states] Episodic Residual codes; unclassified (1 source) Other specified postprocedural states Episodic Residual codes; unclassified (14 sources) History of operative procedure on lumbar spinal structure; Translations: [Other specified postprocedural states] 01-12-2025 Episodic Rheumatoid arthritis and related disease (20 sources) Rheumatoid arthritis; Translations: [Rheumatoid arthritis] Onset: 05-28-2024 01-19-2024 Chronic Screening and history of mental health and substance abuse codes (10 sources) Personal history of nicotine dependence; Translations: [Ex-smoker] Onset: 03-28-2023 05-01-2024 Episodic Comment on above: quit in the ; Spondylosis; intervertebral disc disorders; other back problems (20 sources) Degeneration of cervical intervertebral disc; Translations: [Other cervical disc degeneration, unspecified cervical region] Onset: 05-28-2024 01-19-2024 Chronic Syncope (13 sources) Syncope; Translations: [Syncope and collapse] Onset: 06-11-2025 06-11-2025 Episodic Systemic lupus erythematosus and connective tissue disorders (20 sources) Systemic lupus erythematosus, unspecified; Translations: [Autoimmune connective tissue disorder] Onset: 09-29-2022 05-28-2024 Chronic Thyroid disorders (2 sources) Thyroid nodule; Translations: [Nontoxic single thyroid nodule] 12-17-2024 Chronic Unclassified (1 source) Unknown / UNK(Unknown) Onset: 04-25-2018 Unclassified (1 source) Low back pain, unspecified; Translations: [Low back pain, unspecified] Onset: 01-23-2024 Unclassified (6 sources) Patient encounter status 03-20-2024 Unclassified (7 sources) A [facility] screening has identified you as FRAIL or [...] Four Ways to Beat the Frailty Risk [email or web address] pwtk-fuugop-zixu-ways -ew-nupx-dpl-fra ilty-risk 02-16-2025 Unclassified (1 source) tcm Onset: 02-25-2025 Unclassified (1 source) Obesity, class 1; Translations: [Obesity, class 1] Onset: 12-14-2023 Unclassified (1 source) Cough, unspecified; Translations: [Cough, unspecified] Onset: 09-19-2024 Past or Other Problems Problem Classification Problem [...] vertigo (1 source) Dizziness Onset: 5 Episodic Genitourinary symptoms and ill-defined conditions (20 sources) Blood in urine; Translations: [Gross hematuria] Onset: 3 Episodic Headache; including migraine (1 source) Headache Onset: 5 Episodic Inflammation; infection of eye (except that caused by tuberculosis or sexually transmitteddisease) (20 sources) Iritis; Translations: [Unspecified iridocyclitis] Onset: 4 01-19-2024 Episodic Mood disorders (20 sources) Mood disorders [...] Test Name Value Interpretation Reference Range Facility US carotid doppler BIon 08-0 US carotid doppler BI [facility] Main [place] [address] [place] [address] Ultrasound Report Signed Patient: Valentin Torre MR#: [id number] 29 : 1955 Acct:[id number] Age/Sex: 70 / M ADM Date: 06/25/25 Loc: Room: Type: [facility] Attending Dr: Melanie Trujillo DO Ordering Provider: [...] Griffin M.D. 06/26/2025 8:47 AM Dictation Location: [place] [address] Tech: Мария Artis Transcribed By: MARV 06/26/25 0847 Dictated By: Audie Griffin MD 06/26/25 0845 Signed By: 06/26/25 0847 Normal [facility] ECG 12 [place] 06-20-2025 Normal sinus rhythm, low voltage QRS, nonspecific ST-T wave abnormality, PVCs, abnormal ECG [facility] Work Phone: [facility] Work Phone: Ambulatory Visit Summaryon 0 06-12-2025 Ambulatory Visit [...] AM EDT With: Where: [facility] [address] [place] [address]- Tuesday 8:00 AM EDT With: FLAVIO ONEAL, Zac De Oliveira Where: [facility] [address] [place] [address]- You Need to Schedule the Following Appointments Follow Up with FLAVIO ONEAL, EMILIA Richey When: Where: [facility] [address], [place] [address]- [phone] Medications What How Much When Why Instructions [...] Unchanged oc (more content not included)... Normal [facility] Urology Office/Clinic Noteon 06-12-2025 Urology [...] Electrolyte panel 10/20/23 - wnl. KUB 01/11/24 [facility] - Kidneys are partially obscured, R>L. Group [...] Urology [address], [place] [address] [phone] Additional Instructions: sched TURP Patient Education Transurethral [...] bladder) Osteoarthri (more content not included)... Normal [facility] Comment on above: Result Comment: Elec tronically Signed By: Zac MUNIZ MD\.br\Date and Time Signed: 06/12/25 07:56 EDT\.br\Electronically Co-Signed By: Adela Frias\.br\Date and Time Co-Signed: 06/12/25 07:53 EDT Ambulatory Visit Summaryon 0 04-29-2025 Ambulatory Visit Summary Ambulatory Visit Summary VALENTIN TORRE :1955 Visit Date:04/29/2025 Ambulatory Visit Instructions Your [...] Dry Eye Therapy) omeprazole (omeprazole 40 mg Cap-) prednisoLONE simvastatin (simvastatin 20 mg Tab) tramadol [...] [facility] [address] , [place] [address]- Medications What How Much When Why Instructions New ciprofloxacin (Cipro 500 mg Tab) 1 Tablets By Mouth As Directed Take one tab the day before the procedure. Then take the 2nd tab after the procedure has been completed. Pickup at [facility]/pharmacy #[id number] New dutasteride (dutasteride 0.5 mg Cap) 1 Capsules By Mouth Every day Duration: 30 Days Refills: 11 Pickup at [facility]/pharmacy #[id number] Unchanged potassium bicarbonate (Effervescent Potassium 25 [...] or concerns Pharmacy Information [id number]: [address] [place], [place] [phone] Allergies cephalexin (Unknown) oxyCODONE (Hallucinations) sulfa drugs (Unknown) Problems Ongoing - Any problem that you are currently receiving treatment for. 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 Normal [facility] Urology Office/Clinic Noteon 04-29-2025 Urology Office/Clinic Note Urology Office/Clinic Note Chief Complaint 6 month follow up HPI Staff 6 month f/u with [facility]UB done 04/22/25 [facility]. S/P right ESWL 10/25/24 Dx: kidney stones [...] Electrolyte panel 10/20/23 - wnl. KUB 01/11/24 [facility] - Kidneys are partially obscured, R>L. Group [...] 0.5 mg qd. SEs discussed. Sent to [facility]. -Will schedule cysto. The risks and benefits for cystoscopy have been discussed. The risks include bleeding, infection, and irritation of the bladder and urinary channel, among others. The patient, after being informed of procedural details and after questions have been answered, wishes to proceed. Full informed consent has been obtained. Will order Local anesthesia. Prophylactic abx sent to [facility]. 3. OAB (overactive bladder) (N32.81: Overactive bladder) PVR 108 cc. Wears a pad daily for UUI. See #2. -Cysto above Follow-up With When Contact Information FLAVIO ONEAL, Zac De Oliveira, URL [facility] [address], [place] [address]- Additional Instructions: sched cysto Patient Education Cystoscopy [...] Daily prednisoLONE (more content not included)... Normal [facility] Comment on above: Result Comment: Elec tronically Signed By: Zac MUNIZ MD\.br\Date and Time Signed: 04/29/25 10:04 EDT\.br\Electronically Co-Signed By: Teena Stanley\.br\Date and Time Co-Signed: 04/29/25 10:03 EDT Alanine aminotransferase [En zymatic activity/volume] in Serum or PlasmaOrdered By: Christine Sanchez on 04-18-2025 ALT [Catalytic activity/Vol] Alanine aminotransferase [Enzymatic activity/volume] in Serum or Plasma [facility] ALT [Catalytic activity/Vol] 38 U/L Normal [facility] Comment on above: Performed By: #### E SR, DIFF CBC, ADDONUAPLUS, CMP #### [address] #### CH50, C4, C3 #### [facility] , Albumin [Mass/volume] in Ser um or Plasma by Bromocresol green (BCG) dye binding methoOrdered By: Christine Sanchez on 04-18-2025 Albumin BCG dye [Mass/Vol] Albumin [Mass/volume] in Serum or Plasma by Bromocresol green (BCG) dye binding metho 3.5-5.7 [facility] Albumin BCG dye [Mass/Vol] 4.1 g/dL 3.5-5.7 [facility] Alkaline phosphatase [Enzyma tic activity/volume] in Serum or PlasmaOrdered By: Christine Sanchez on 04-18-2025 ALP [Catalytic activity/Vol] Alkaline phosphatase [Enzymatic activity/volume] in Serum or Plasma [facility] ALP [Catalytic activity/Vol] 73 U/L Normal [facility] Comment on above: Result Comment: PERF ORMED BY: [place] [address] PATHOLOGIST MEAT WASHER LANIE ALVARES M.D. Performed By: #### E SR, DIFF CBC, ADDONUAPLUS, CMP #### [facility] [address] [place] [address] [place] #### CH50, C4, C3 #### [facility] , Appearance of UrineOrdered B y: Christine Sanchez on 04-18-2025 Appearance (U) Urine appearance Clear [facility] Appearance (U) Clear Normal Clear [facility] Comment on above: Order Comment: Name Collection Type:: Clean-Voided Midstream Performed By: #### E SR, DIFF CBC, ADDONUAPLUS, CMP #### [facility] [address] [place] [address] [place] #### CH50, C4, C3 #### [facility] , Aspartate aminotransferase [ Enzymatic activity/volume] in Serum or PlasmaOrdered By: Christine Sanchez on 04-18-2025 AST [Catalytic activity/Vol] Aspartate aminotransferase [Enzymatic activity/volume] in Serum or Plasma [address] [place] [address] AST [Catalytic activity/Vol] 19 U/L Normal [address] [place] [address] Comment on above: Performed By: #### E SR, DIFF CBC, ADDONUAPLUS, CMP #### [facility] [address] [place] [address] [place] #### CH50, C4, C3 #### [facility] , Bacteria [Presence] in Urine by AutomatedOrdered By: Christine Sanchez on 04-18-2025 Bacteria Auto Ql (U) Bacteria [Presence] in Urine by Automated None Seen [facility] Bacteria Auto Ql (U) Rare [HPF] None Seen [facility] Basophils Auto (Bld) [#/Vol] Ordered By: Christine Sanchez on 04-18-2025 Basophils (Bld) [#/Vol] Automated basophil count [facility] Basophils (Bld) [#/Vol] N/A [facility] Basophils/100 WBC Auto (Bld) Ordered By: Christine Sanchez on 04-18-2025 Basophils/100 WBC (Bld) Automated basophil % [facility] Basophils/100 WBC (Bld) N/A [facility] Basophils/100 WBC Manual cnt (Bld)Ordered By: Christine Sanchez on 04-18-2025 Basophils/100 WBC (Bld) Basophils/100 leukocytes in Blood by Manual count 0-2 [facility] Basophils/100 leukocytes in Blood by Manual countOrdered By: Christine Sanchez on 04-18-2025 Basophils/100 WBC (Bld) 0 % Normal 0-2 [facility] Comment on above: Performed By: #### E SR, DIFF CBC, ADDONUAPLUS, CMP #### [facility] [address] [place] [address] [place] #### CH50, C4, C3 #### [facility] , Bilirubin Test strip Ql (U)O rdered By: Christine Sanchez on 04-18-2025 Bilirubin Ql (U) Bilirubin.total [Pre sence] in Urine by Test strip Negative [facility] Bilirubin Ql (U) Negative Negative [facility] Bilirubin.total [Mass/volume ] in Serum or PlasmaOrdered By: Christine Sanchez on 04-18-2025 Bilirubin [Mass/Vol] Bilirubin.total [Mass/volume] in Serum or Plasma 0.3-1.0 [facility] Bilirubin [Mass/Vol] 0.4 mg/dL Normal 0.3-1.0 [facility] Comment on above: Performed By: #### E SR, DIFF CBC, ADDONUAPLUS, CMP #### [facility] [address] [place] [address] [place] #### CH50, C4, C3 #### [facility] , Calcium [Mass/volume] in Ser um or PlasmaOrdered By: Christine Sanchez on 04-18-2025 Calcium [Mass/Vol] Calcium [Mass/volume ] in Serum or Plasma 8.6-10.3 [facility] Calcium [Mass/Vol] 8.7 mg/dL Normal 8.6-10.3 [facility] Comment on above: Performed By: #### E SR, DIFF CBC, ADDONUAPLUS, CMP #### [place] [address] [place] #### CH50, C4, C3 #### [facility] , Carbon dioxide, total [Moles /volume] in Serum or PlasmaOrdered By: Christine Sanchez on 04-18-2025 CO2 [Moles/Vol] Carbon dioxide, tota l [Moles/volume] in Serum or Plasma 21.0-31.0 [facility] CO2 [Moles/Vol] 23.0 mmol/L Normal 21.0-31.0 [facility] Comment on above: Performed By: #### E SR, DIFF CBC, ADDONUAPLUS, CMP #### [place] [address] [place] #### CH50, C4, C3 #### [facility] , Chloride [Moles/volume] in S ace or PlasmaOrdered By: Christine Sanchez on 04-18-2025 Chloride [Moles/Vol] Chloride [Moles/vol ume] in Serum or Plasma 98-107 [facility] Chloride [Moles/Vol] 105 mmol/L Normal 98-107 [facility] Comment on above: Performed By: #### E SR, DIFF CBC, ADDONUAPLUS, CMP #### [address] #### CH50, C4, C3 #### [facility] , Color Auto (U)Ordered By: Marianna Arellano on 04-18-2025 Color (U) Color of Urine by Auto Yellow [facility] Color of Urine by AutoOrdere d By: Christine Sanchez on 04-18-2025 Color (U) Yellow Normal Yellow [facility] Comment on above: Order Comment: Name Collection Type:: Clean-Voided Midstream Performed By: #### E SR, DIFF CBC, ADDONUAPLUS, CMP #### [place] [address] [place] #### CH50, C4, C3 #### [facility] , Complement C3on 04-18-2025 Complement C3 121 mg/dL Normal 82-167 [facility] Comment on above: Result Comment: Perf ormed at: [address] [id number] Lettuce Cutter: Richy Ardon PhD, Phone: [phone] Performed By: #### E SR, DIFF CBC, ADDONUAPLUS, CMP #### [address] #### CH50, C4, C3 #### [facility] , Complement C4on 04-18-2025 Complement C4 14 mg/dL Normal 12-38 [facility] Comment on above: Result Comment: PERF ORMED BY: [place] [address] PATHOLOGIST MEAT WASHER LANIE ALVARES M.D. Performed By: #### E SR, DIFF CBC, ADDONUAPLUS, CMP #### [address] #### CH50, C4, C3 #### [facility] , Complement Total (CH50)on Complement Total (CH50) 58 Normal >41 [facility] Comment on above: Result [...] determine out of range values. Performed at: [facility] [address] [id number] Lettuce Cutter: Richy Ardon PhD, Phone: [phone] PERFORMED BY: [place] [address] PATHOLOGIST MEAT WASHER LANIE ALVARES M.D. Performed By: #### E SR, DIFF CBC, ADDONUAPLUS, CMP #### [place] [address] [place] #### CH50, C4, C3 #### [facility] , Comprehensive Metabolic Pane vivek 04-18-2025 Albumin [Mass/Vol] 4.1 g/dL Normal 3.5-5.7 [facility] Comment on above: Performed By: #### E SR, DIFF CBC, ADDONUAPLUS, CMP #### [place] [address] [place] #### CH50, C4, C3 #### [facility] , GFR/1.73 sq M.predicted MDRD (S/P/Bld) [Vol rate/Area] mL/min/{1.73_m2} Normal [facility] Comment on above: Performed By: #### E SR, DIFF CBC, ADDONUAPLUS, CMP #### [place] [address] [place] #### CH50, C4, C3 #### [facility] , Creatinine [Mass/volume] in Serum or PlasmaOrdered By: Christine Sanchez on 04-18-2025 Creatinine [Mass/Vol] Creatinine [Mass/v olume] in Serum or Plasma 0.70-1.30 [facility] Creatinine [Mass/Vol] 0.90 mg/dL Normal 0.70-1.30 [facility] Comment on above: Performed By: #### E SR, DIFF CBC, ADDONUAPLUS, CMP #### [place] [address] [place] #### CH50, C4, C3 #### [facility] , Diff and CBCon 04-18-2025 Mean Corpuscular HGB Conc 34.8 g/dL Normal 32.5-35.6 [facility] Comment on above: Performed By: #### E SR, DIFF CBC, ADDONUAPLUS, CMP #### [place] [address] [place] #### CH50, C4, C3 #### [facility] , Metamyelocytes 1 % High 0-0 [facility] Comment on above: Performed By: #### E SR, DIFF CBC, ADDONUAPLUS, CMP #### [address] #### CH50, C4, C3 #### [facility] , Myelocytes 3 % High 0-0 [facility] Comment on above: Performed By: #### E SR, DIFF CBC, ADDONUAPLUS, CMP #### [address] #### CH50, C4, C3 #### [facility] , Platelet Estimate Normal Normal Normal [facility] Comment on above: Performed By: #### E SR, DIFF CBC, ADDONUAPLUS, CMP #### [address] #### CH50, C4, C3 #### [facility] , Platelet Morphology Normal Normal Normal [facility] Comment on above: Performed By: #### E SR, DIFF CBC, ADDONUAPLUS, CMP #### [address] #### CH50, C4, C3 #### [facility] , Dipstick and Microscopicon 0 04-18-2025 Bacteria,Urine Rare Normal None Seen [facility] Comment on above: Order Comment: Name Collection Type:: Clean-Voided Midstream Performed By: #### E SR, DIFF CBC, ADDONUAPLUS, CMP #### [place] [address] [place] #### CH50, C4, C3 #### [facility] , Bilirubin,Urine Negative Normal Negative [facility] Comment on above: Order Comment: Name Collection Type:: Clean-Voided Midstream Performed By: #### E SR, DIFF CBC, ADDONUAPLUS, CMP #### [place] [id number] [place] #### CH50, C4, C3 #### [facility] , Glucose Ql (U) Normal Normal Normal [facility] Comment on above: Order Comment: Name Collection Type:: Clean-Voided Midstream Performed By: #### E SR, DIFF CBC, ADDONUAPLUS, CMP #### [address] #### CH50, C4, C3 #### [facility] , Hyaline Casts,Urine 0-8 Normal 0-8 [facility] Comment on above: Order Comment: Name Collection Type:: Clean-Voided Midstream Performed By: #### E SR, DIFF CBC, ADDONUAPLUS, CMP #### [address] #### CH50, C4, C3 #### [facility] , Mucus,Urine 4+ Critically abnormal [facility] Comment on above: Order Comment: Name Collection Type:: Clean-Voided Midstream Result Comment: PERF ORMED BY: [place] [address] PATHOLOGIST [employer] W[employer] LANIE ALVARES M.D. Performed By: #### E SR, DIFF CBC, ADDONUAPLUS, CMP #### [address] #### CH50, C4, C3 #### [facility] , Nitrite,Urine Negative Normal Negative [facility] Comment on above: Order Comment: Name Collection Type:: Clean-Voided Midstream Performed By: #### E SR, DIFF CBC, ADDONUAPLUS, CMP #### [address] #### CH50, C4, C3 #### [facility] , Occult Blood,Urine Negative Normal Negative [facility] Comment on above: Order Comment: Name Collection Type:: Clean-Voided Midstream Performed By: #### E SR, DIFF CBC, ADDONUAPLUS, CMP #### [address] #### CH50, C4, C3 #### [facility] , RBC,Urine 1-2 Normal 0-4 [facility] Comment on above: Order Comment: Name Collection Type:: Clean-Voided Midstream Performed By: #### E SR, DIFF CBC, ADDONUAPLUS, CMP #### [address] #### CH50, C4, C3 #### [facility] , Specificy [place],Urine 1.027 Normal 1.001-1.03 0 [facility] Comment on above: Order Comment: Name Collection Type:: Clean-Voided Midstream Performed By: #### E SR, DIFF CBC, ADDONUAPLUS, CMP #### [address] #### CH50, C4, C3 #### [facility] , Urobilinogen,Urine Normal Normal Normal [facility] Comment on above: Order Comment: Name Collection Type:: Clean-Voided Midstream Performed By: #### E SR, DIFF CBC, ADDONUAPLUS, CMP #### [address] #### CH50, C4, C3 #### [facility] , WBC,Urine 1-2 Normal 0-4 [facility] Comment on above: Order Comment: Name Collection Type:: Clean-Voided Midstream Performed By: #### E SR, DIFF CBC, ADDONUAPLUS, CMP #### [place] [address] [place] #### CH50, C4, C3 #### [facility] , Eosinophils Auto (Bld) [#/Vo l]Ordered By: Christine Sanchez on 04-18-2025 Eosinophils (Bld) [#/Vol] Automated eosinophil count [facility] Eosinophils (Bld) [#/Vol] N/A [facility] Eosinophils/100 WBC Auto (Bl d)Ordered By: Christine Sanchez on 04-18-2025 Eosinophils/100 WBC (Bld) Automated eosinophil % [facility] Eosinophils/100 WBC (Bld) N/A [facility] Eosinophils/100 WBC Manual c nt (Bld)Ordered By: Christine Sanchez on 04-18-2025 Eosinophils/100 WBC (Bld) Eosinophils/100 leukocytes in Blood by Manual count Low [address] Eosinophils/100 leukocytes i n Blood by Manual countOrdered By: Christine Sanchez on 04-18-2025 Eosinophils/100 WBC (Bld) 0 % Low 1-3 [facility] Comment on above: Performed By: #### E SR, DIFF CBC, ADDONUAPLUS, CMP #### [facility] [address] [place] [address] #### CH50, C4, C3 #### [facility] , Epithelial cells.squamous [# /area] in Urine sediment by Automated countOrdered By: Christine Sanchez on 04-18-2025 Epithelial cells.squamous Auto (Urine sed) [#/Area] Epithelial cells.squamous [#/area] in Urine sediment by Automated count [facility] Epithelial cells.squamous Auto (Urine sed) [#/Area] N/A [facility] Erythrocyte Sedimentation Ra bruno 04-18-2025 ESR (Bld) [Velocity] 4 mm/h Normal 0-19 [facility] Comment on above: Result Comment: PERF ORMED BY: [place] [address] PATHOLOGIST [employer] WASH[employer] LANIE ALVARES M.D. Performed By: #### E SR, DIFF CBC, ADDONUAPLUS, CMP #### [facility] [address] [place] [address] [place] #### CH50, C4, C3 #### [facility] , Erythrocyte distribution wid th Auto (RBC) [Ratio]Ordered By: Christine Sanchez on 04-18-2025 Erythrocyte distribution width (RBC) [Ratio] Erythrocyte distribution width [Ratio] by Automated count High 12.0-14.8 [facility] Erythrocyte distribution wid th [Ratio] by Automated countOrdered By: Christine Sanchez on 04-18-2025 Erythrocyte distribution width (RBC) [Ratio] 14.9 % High 12.0-14.8 [facility] Comment on above: Performed By: #### E SR, DIFF CBC, ADDONUAPLUS, CMP #### [address] #### CH50, C4, C3 #### [facility] , Erythrocyte morphology findi ng [Identifier] in BloodOrdered By: Christine Sanchez on 04-18-2025 RBC morphology finding Nom (Bld) RBC morphology Normal [facility] RBC morphology finding Nom (Bld) Normal Normal Normal [facility] Comment on above: Performed By: #### E SR, DIFF CBC, ADDONUAPLUS, CMP #### [place] [address] [place] #### CH50, C4, C3 #### [facility] , Erythrocyte sedimentation ra te by Photometric methodOrdered By: Christine Sanchez on 04-18-2025 ESR Photometric method (Bld) [Velocity] Erythrocyte sedimentation rate by Photometric method 0- [facility] ESR Photometric method (Bld) [Velocity] 4 mm/hr 0-19 [facility] Erythrocytes [#/area] in Uri ne sediment by Automated countOrdered By: Christine Sanchez on 04-18-2025 RBC Auto (Urine sed) [#/Area] Erythrocytes [#/area] in Urine sediment by Automated count 0-4 [facility] RBC Auto (Urine sed) [#/Area] 1-2 [HPF] 0-4 [facility] Erythrocytes [#/volume] in B lood by Automated countOrdered By: Christine Sanchez on 04-18-2025 RBC (Bld) [#/Vol] 5.01 10*6/uL Normal 3.90-5.60 [facility] Comment on above: Performed By: #### E SR, DIFF CBC, ADDONUAPLUS, CMP #### [facility] [address] [place] [address] [place] #### CH50, C4, C3 #### [facility] , Globulin Calc (S) [Mass/Vol] Ordered By: Christine Sanchez on 04-18-2025 Globulin (S) [Mass/Vol] Serum globulin measurement by calculation (mass/volume) [facility] Glucose [Mass/volume] in Ser um or PlasmaOrdered By: Chrsitine Sanchez on 04-18-2025 Glucose [Mass/Vol] Glucose [Mass/volume ] in Serum or Plasma [facility] [address] [facility] Comment on above: ADA recommended refe rence rangeRandom Glucose Reference Range is dependent on time and content of last meal. Glucose of more than 200 mg/dL in a nonstressed, ambulatory subject supports the diagnosis of Diabetes Mellitus. Glucose [Mass/Vol] 110 mg/dL High 70-100 [facility] Comment on above: ADA recommended refe rence rangeRandom Glucose Reference Range is dependent on time and content of last meal. Glucose of more than 200 mg/dL in a nonstressed, ambulatory subject supports the diagnosis of Diabetes Mellitus. Result Comment: [place] om Glucose Reference Range is dependent on time and content of last meal. Glucose of more than 200 mg/dL in a nonstressed, ambulatory subject supports the diagnosis of Diabetes Mellitus. ADA recommended reference range Performed By: #### E SR, DIFF CBC, ADDONUAPLUS, CMP #### [facility] [address] [place] [address] [place] #### CH50, C4, C3 #### [facility] , Glucose [Mass/volume] in Uri ne by Test stripOrdered By: Christine Sanchez on 04-18-2025 Glucose Test strip (U) [Mass/Vol] Glucose [Mass/volume] in Urine by Test strip Normal [facility] Glucose Test strip (U) [Mass/Vol] Normal mg/dL Normal [facility] Hematocrit Auto (Bld) [Volum e fraction]Ordered By: Christine Sanchez on 04-18-2025 Hematocrit (Bld) [Volume fraction] Hematocrit [Volume Fraction] of Blood by Automated count 38.8-50.0 [facility] Hematocrit [Volume Fraction] of Blood by Automated countOrdered By: Christine Sanchez on 04-18-2025 Hematocrit (Bld) [Volume fraction] 45.5 % Normal 38.8-50.0 [facility] Comment on above: Performed By: #### E SR, DIFF CBC, ADDONUAPLUS, CMP #### [place] [address] [place] #### CH50, C4, C3 #### [facility] , Hemoglobin Test strip Ql (U) Ordered By: Christine Sanchez on 04-18-2025 Hemoglobin Ql (U) Hemoglobin [Presence ] in Urine by Test strip Negative [facility] Hemoglobin Ql (U) Negative Negative [facility] Hemoglobin [Mass/volume] in BloodOrdered By: Christine Sanchez on 04-18-2025 Hemoglobin (Bld) [Mass/Vol] Hemoglobin [Mass/volume] in Blood 13.0-17.0 [facility] Hemoglobin (Bld) [Mass/Vol] 15.8 g/dL Normal 13.0-17.0 [facility] Comment on above: Performed By: #### E SR, DIFF CBC, ADDONUAPLUS, CMP #### [place] [address] [place] #### CH50, C4, C3 #### [facility] , Hyaline casts [#/area] in Ur ine sediment by Automated countOrdered By: Christine Sanchez on 04-18-2025 Hyaline casts Auto (Urine sed) [#/Area] Hyaline casts [#/area] in Urine sediment by Automated count 0-8 [facility] Hyaline casts Auto (Urine sed) [#/Area] 0-8 [LPF] 0-8 [facility] Ketones Test strip Ql (U)Ord ered By: Christine Sanchez on 04-18-2025 Ketones Ql (U) Ketones [Presence] i n Urine by Test strip Negative [facility] Ketones [Presence] in Urine by Test stripOrdered By: Christine Sanchez on 04-18-2025 Ketones Ql (U) Negative Normal Negative [facility] Comment on above: Order Comment: Name Collection Type:: Clean-Voided Midstream Performed By: #### E SR, DIFF CBC, ADDONUAPLUS, CMP #### [place] [address] [place] #### CH50, C4, C3 #### [facility] , Leukocyte esterase [Presence ] in Urine by Test stripOrdered By: Christine Sanchez on 04-18-2025 Leukocyte esterase Test strip Ql (U) Leukocyte esterase [Presence] in Urine by Test strip Negative [facility] Leukocyte esterase Test strip Ql (U) Negative Normal Negative [facility] Comment on above: Order Comment: Name Collection Type:: Clean-Voided Midstream Performed By: #### E SR, DIFF CBC, ADDONUAPLUS, CMP #### [place] [address] [place] #### CH50, C4, C3 #### [facility] , Leukocytes [#/area] in Urine sediment by Automated countOrdered By: Christine Sanchez on 04-18-2025 WBC Auto (Urine sed) [#/Area] Leukocytes [#/area] in Urine sediment by Automated count 0-4 [facility] WBC Auto (Urine sed) [#/Area] 1-2 [HPF] 0-4 [facility] Leukocytes [#/volume] correc nat for nucleated erythrocytes in Blood by Automated counOrdered By: Christine Sanchez on 04-18-2025 WBC corrected for nucl RBC Auto (Bld) [#/Vol] Leukocytes [#/volume] corrected for nucleated erythrocytes in Blood by Automated coun 4.1-10.5 [facility] WBC corrected for nucl RBC Auto (Bld) [#/Vol] 5.5 10*3/uL 4.1-10.5 [facility] Leukocytes [#/volume] in Blo od by Automated countOrdered By: Christine Sanchez on 04-18-2025 WBC (Bld) [#/Vol] 5.5 10*3/uL Normal 4.1-10.5 [facility] Comment on above: Performed By: #### E SR, DIFF CBC, ADDONYVONPLUS, CMP #### [place] [address] [place] #### CH50, C4, C3 #### [facility] , Lymphocytes Auto (Bld) [#/Vo l]Ordered By: Christine Sanchez on 04-18-2025 Lymphocytes (Bld) [#/Vol] Lymphocytes [#/volume] in Blood by Automated count [facility] Lymphocytes (Bld) [#/Vol] N/A [facility] Lymphocytes/100 WBC Auto (Bl d)Ordered By: Christine Sanchez on 04-18-2025 Lymphocytes/100 WBC (Bld) Lymphocytes/100 leukocytes in Blood by Automated count [facility] Lymphocytes/100 WBC (Bld) N/A [facility] Lymphocytes/100 WBC Manual c nt (Bld)Ordered By: Christine Sanchez on 04-18-2025 Lymphocytes/100 WBC (Bld) Lymphocytes/100 leukocytes in Blood by Manual count Low 18-42 [facility] Lymphocytes/100 leukocytes i n Blood by Manual countOrdered By: Christine Sanchez on 04-18-2025 Lymphocytes/100 WBC (Bld) 8 % Low 18-42 [facility] Comment on above: Performed By: #### E SR, DIFF CBC, ADDKYLE, CMP #### [place] [address] [place] #### CH50, C4, C3 #### [facility] , MCH Auto (RBC) [Entitic mass ]Ordered By: Christine Sanchez on 04-18-2025 MCH (RBC) [Entitic mass] MCH [Entitic mass] by Automated count 27.5-35.2 [facility] MCH [Entitic mass] by Automa nat countOrdered By: Christine Sanchez on 04-18-2025 MCH (RBC) [Entitic mass] 31.6 pg Normal 27.5-35.2 [facility] Comment on above: Performed By: #### E SR, DIFF CBC, ADDONUAPLUS, CMP #### [facility] [address] [place] [address] #### CH50, C4, C3 #### [facility] , MCHC Auto (RBC) [Mass/Vol]Or dered By: Christine Sanchez on 04-18-2025 MCHC (RBC) [Mass/Vol] MCHC [Mass/volume] by Automated count 32.5-35.6 [facility] MCHC (RBC) [Mass/Vol] 34.8 g/dL 32.5-35.6 [facility] MCV Auto (RBC) [Entitic vol] Ordered By: Christine Sanchez on 04-18-2025 MCV (RBC) [Entitic vol] MCV [Entitic volume] by Automated count 83.5-101 [facility] MCV [Entitic volume] by Auto mated countOrdered By: Christine Sanchez on 04-18-2025 MCV (RBC) [Entitic vol] 90.9 fL Normal 83.5-101 [facility] Comment on above: Performed By: #### E SR, DIFF CBC, ADDONUAPLUS, CMP #### [facility] [address] [place] [address] [place] #### CH50, C4, C3 #### [facility] , Metamyelocytes/100 WBC Manua l cnt (Bld)Ordered By: Christine Sanchez on 04-18-2025 Metamyelocytes/100 WBC (Bld) Metamyelocytes/100 leukocytes in Blood by Manual count High 0-0 [facility] Metamyelocytes/100 WBC (Bld) 1 % High 0-0 [facility] Monocytes Auto (Bld) [#/Vol] Ordered By: Christine Sanchez on 04-18-2025 Monocytes (Bld) [#/Vol] Automated blood monocyte count [facility] Monocytes (Bld) [#/Vol] N/A [facility] Monocytes/100 WBC Auto (Bld) Ordered By: Christine Sanchez on 04-18-2025 Monocytes/100 WBC (Bld) Automated monocyte % [facility] Monocytes/100 WBC (Bld) N/A [facility] Monocytes/100 WBC Manual cnt (Bld)Ordered By: Christine Sanchez on 04-18-2025 Monocytes/100 WBC (Bld) Monocytes/100 leukocytes in Blood by Manual count [address] Monocytes/100 leukocytes in Blood by Manual countOrdered By: Christine Sanchez on 04-18-2025 Monocytes/100 WBC (Bld) 19 % [address] Comment on above: Performed By: #### E SR, DIFF CBC, ADDONUAPLUS, CMP #### [facility] [address] #### CH50, C4, C3 #### [facility] , Mucus [Presence] in Urine by AutomatedOrdered By: Christine Sanchez on 04-18-2025 Mucus Auto Ql (U) Mucus [Presence] in Urine by Automated Abnormal [facility] Mucus Auto Ql (U) 4+ [LPF] Abnormal [facility] Myelocytes/100 WBC Manual cn t (Bld)Ordered By: Christine Sanchez on 04-18-2025 Myelocytes/100 WBC (Bld) Myelocytes/100 leukocytes in Blood by Manual count High 0-0 [facility] Myelocytes/100 WBC (Bld) 3 % High 0-0 [facility] Neutrophils Auto (Bld) [#/Vo l]Ordered By: Christine Sanchez on 04-18-2025 Neutrophils (Bld) [#/Vol] Neutrophils [#/volume] in Blood by Automated count [facility] Neutrophils (Bld) [#/Vol] N/A [facility] Neutrophils/100 WBC Auto (Bl d)Ordered By: Christine Sanchez on 04-18-2025 Neutrophils/100 WBC (Bld) Automated neutrophil % [facility] Neutrophils/100 WBC (Bld) N/A [facility] Nitrite Test strip Ql (U)Ord ered By: Christine Sanchez on 04-18-2025 Nitrite Ql (U) Nitrite [Presence] i n Urine by Test strip Negative [facility] Nitrite Ql (U) Negative Negative [facility] No Panel InformationOrdered By: Christine Sanchez on 04-18-2025 Estimated GFR (CKD-EPI) > 60.0 mL/Min [facility] Creatinine Clearance (Chem N/A [facility] Nucleated erythrocytes [Pres ence] in Blood by Automated countOrdered By: Christine Sanchez on 04-18-2025 Nucleated RBC Auto Ql (Bld) Nucleated erythrocytes [Presence] in Blood by Automated count [facility] Nucleated RBC Auto Ql (Bld) N/A [facility] Platelet adequacy [Presence] in Blood by Light microscopyOrdered By: Christine Sanchez on 04-18-2025 Platelets LM Ql (Bld) Platelet adequacy [Presence] in Blood by Light microscopy Normal [facility] Platelets LM Ql (Bld) Normal Normal [facility] Platelet mean volume Auto (B ld) [Entitic vol]Ordered By: Christine Sanchez on 04-18-2025 Platelet mean volume (Bld) [Entitic vol] Platelet mean volume [Entitic volume] in Blood by Automated count 6.6-10.1 [facility] Platelet mean volume [Entiti c volume] in Blood by Automated countOrdered By: Christine Sanchez on 04-18-2025 Platelet mean volume (Bld) [Entitic vol] 8.3 fL Normal 6.6-10.1 [facility] Comment on above: Performed By: #### E SR, DIFF CBC, ADDONUAPLUS, CMP #### [facility] [address] [place] [address] #### CH50, C4, C3 #### [facility] , Platelet morphology finding [Identifier] in BloodOrdered By: Christine Sanchez on 04-18-2025 Platelet morphology finding Nom (Bld) Platelet morphology finding [Identifier] in Blood Normal [facility] Platelet morphology finding Nom (Bld) Normal Normal [facility] Platelets Auto (Bld) [#/Vol] Ordered By: Christine Sanchez on 04-18-2025 Platelets (Bld) [#/Vol] Platelets [#/volume] in Blood by Automated count 150-450 [facility] Platelets [#/volume] in Bloo d by Automated countOrdered By: Christine Sanchez on 04-18-2025 Platelets (Bld) [#/Vol] 207 10*3/uL Normal 150-450 [facility] Comment on above: Performed By: #### E SR, DIFF CBC, ADDONUAPLUS, CMP #### [place] [address] [place] #### CH50, C4, C3 #### [facility] , Potassium [Moles/volume] in Serum or PlasmaOrdered By: Christine Sanchez on 04-18-2025 Potassium [Moles/Vol] Potassium [Moles/v olume] in Serum or Plasma 3.5-5.1 [facility] Potassium [Moles/Vol] 4.3 mmol/L Normal 3.5-5.1 [facility] Comment on above: Performed By: #### E SR, DIFF CBC, ADDONUAPLUS, CMP #### [facility] [address] [place] [address] [place] #### CH50, C4, C3 #### [facility] , Protein Test strip (U) [Mass /Vol]Ordered By: Christine Sanchez on 04-18-2025 Protein (U) [Mass/Vol] Protein [Mass/vol ume] in Urine by Test strip High Negative [facility] Protein [Mass/volume] in Ser um or PlasmaOrdered By: Christine Sanchez on 04-18-2025 Protein [Mass/Vol] Protein [Mass/volume ] in Serum or Plasma Low 6.4-8.9 [facility] Protein [Mass/Vol] 6.1 g/dL Low 6.4-8.9 [facility] Comment on above: Performed By: #### E SR, DIFF CBC, ADDONUAPLUS, CMP #### [facility] [address] [place] [address] [place] #### CH50, C4, C3 #### [facility] , Protein [Mass/volume] in Uri ne by Test stripOrdered By: Christine Sanchez on 04-18-2025 Protein (U) [Mass/Vol] 50 mg/dL High Negative [facility] Comment on above: Order Comment: Name Collection Type:: Clean-Voided Midstream Performed By: #### E SR, DIFF CBC, ADDONUAPLUS, CMP #### [place] [address] [place] #### CH50, C4, C3 #### [facility] , RBC Auto (Bld) [#/Vol]Ordere d By: Christine Sanchez on 04-18-2025 RBC (Bld) [#/Vol] Erythrocytes [#/volu me] in Blood by Automated count 3.90-5.60 [facility] Segmented neutrophils/100 WB C Manual cnt (Bld)Ordered By: Christine Sanchez on 04-18-2025 Segmented neutrophils/100 WBC (Bld) Manual blood segmented neutrophils/100 leukocytes 50-70 [facility] Segmented neutrophils/100 le ukocytes in Blood by Manual countOrdered By: Christine Sanchez on 04-18-2025 Segmented neutrophils/100 WBC (Bld) 69 % Normal 50-70 [facility] Comment on above: Performed By: #### E SR, DIFF CBC, ADDONUAPLUS, CMP #### [facility] [address] [place] [address] [place] #### CH50, C4, C3 #### [facility] , Serum globulin measurement b y calculation (mass/volume)Ordered By: Christine Sanchez on 04-18-2025 Globulin (S) [Mass/Vol] 2.0 g/dL Normal [facility] Comment on above: Performed By: #### E SR, DIFF CBC, ADDONUAPLUS, CMP #### [facility] [address] [place] [address] [place] #### CH50, C4, C3 #### [facility] , Serum or plasma albumin/glob ulin mass ratioOrdered By: Christine Sanchez on 04-18-2025 Albumin/Globulin [Mass ratio] Serum or plasma albumin/globulin mass ratio [facility] Albumin/Globulin [Mass ratio] 2.1 {ratio} Normal [facility] Comment on above: Performed By: #### E SR, DIFF CBC, ADDONUAPLUS, CMP #### [facility] [address] [place] [address] [place] #### CH50, C4, C3 #### [facility] , Serum or plasma anion gap de terminationOrdered By: Christine Sanchez on 04-18-2025 Anion gap [Moles/Vol] Serum or plasma an ion gap determination 6.0-15.0 [facility] Anion gap [Moles/Vol] 13.3 mmol/L Normal 6.0-15.0 [facility] Comment on above: Performed By: #### E SR, DIFF CBC, ADDONUAPLUS, CMP #### [facility] [address] [place] [address] [place] #### CH50, C4, C3 #### [facility] , Serum or plasma complement C 3 measurement (mass/volume)Ordered By: Christine Sanchez on 04-18-2025 Complement C3 [Mass/Vol] Serum or plasma complement C3 measurement (mass/volume) [address] [place] [address] Comment on above: Performed at: [facility] [place] [id number] Director: Richy Ardon PhD, Phone: [phone] Complement C3 [Mass/Vol] 121 mg/dL [address] Comment on above: Performed at: [employer] [id number] Director: Richy Ardon PhD, Phone: [phone] Serum or plasma complement C 4 measurement (mass/volume)Ordered By: Christine Sanchez on 04-18-2025 Complement C4 [Mass/Vol] Serum or plasma complement C4 measurement (mass/volume) [facility] Complement C4 [Mass/Vol] 14 mg/dL [facility] Sodium [Moles/volume] in Ser um or PlasmaOrdered By: Christine Sanchez on 04-18-2025 Sodium [Moles/Vol] Sodium [Moles/volume ] in Serum or Plasma 136-145 [facility] Sodium [Moles/Vol] 137 mmol/L Normal 136-145 [facility] Comment on above: Performed By: #### E SR, DIFF CBC, ADDONUAPLUS, CMP #### [address] #### CH50, C4, C3 #### [facility] , Specific gravity Test strip (U) [Rel density]Ordered By: Christine Sanchez on 04-18-2025 Specific gravity (U) [Rel density] Specific gravity of Urine by Test strip 1.001-1.03 0 [facility] Specific gravity (U) [Rel density] 1.027 1.001-1.03 0 [facility] Total hemolytic complement C H50 assayOrdered By: Christine Sanchez on 04-18-2025 Total Complement (CH50) 58 U/mL >41 [facility] Comment on above: Age Male Female 3 [...] determine out of range values.Performed at: - [facility] [id number] Director: Richy Ardon PhD, Phone: [phone] Total hemolytic complement CH50 assay 58 U/mL >41 [facility] Comment on above: Age Male Female 3 [...] determine out of range values.Performed at: - [facility] [employer] [id number] Director: Richy Ardon PhD, Phone: [phone] Urea nitrogen [Mass/volume] in Serum or PlasmaOrdered By: Christine Sanchez on 04-18-2025 Urea nitrogen [Mass/Vol] Urea nitrogen [Mass/volume] in Serum or Plasma 06-14 [facility] Urea nitrogen [Mass/Vol] 22 mg/dL Normal 06-14 [facility] Comment on above: Performed By: #### E SR, DIFF CBC, ADDONUAPLUS, CMP #### [facility] [address] [place] [address] #### CH50, C4, C3 #### [facility] , Urobilinogen Test strip (U) [Mass/Vol]Ordered By: Christine Sanchez on 04-18-2025 Urobilinogen (U) [Mass/Vol] Urobilinogen [Mass/volume] in Urine by Test strip Normal [facility] Urobilinogen (U) [Mass/Vol] Normal mg/dL Normal [facility] WBC Auto (Bld) [#/Vol]Ordere d By: Christine Sanchez on 04-18-2025 WBC (Bld) [#/Vol] Leukocytes [#/volume ] in Blood by Automated count 4.1-10.5 [facility] pH Test strip (U)Ordered By: Christine Sanchez on 04-18-2025 pH (U) pH of Urine by Test strip 5.0-9.0 [facility] pH of Urine by Test stripOrd ered By: Christine Sanchez on 04-18-2025 pH (U) 6.0 [pH] Normal 5.0-9.0 [facility] Comment on above: Order Comment: Name Collection Type:: Clean-Voided Midstream Performed By: #### E SR, DIFF CBC, ADDONUAPLUS, CMP #### [facility] [address] [id number] [facility] #### CH50, C4, C3 #### [facility] , X-ray reportOrdered By: Yaneth Bill on 04-10-2025 Study report [facility] [address] [place] [address] XRay Report Signed Patient: Valentin Torre MR#: [id number] : 1955 Acct:[id number] Age/Sex: 69 / M ADM Date: 5 Loc: [facility] Room: Type: [facility] Attending Dr: Jaime Murcia II, MD [...] Bill M.D. 04/10/2025 1:53 PM Dictation Location: [place] [address] Transcribed By: MARV 04/10/25 1353 Dictated By: Yaneth Bill II, MD 04/10/25 1352 Signed By: 04/10/25 135 [facility] Work Phone: XR knee RT 4V*on 05-21-2025 XR knee RT 4V* [facility] [address] [place] [address] XRay Report Signed Patient: Valentin Torre MR#: [id number] 29 : 1955 Acct:[id number] Age/Sex: 69 / M ADM Date: 04/10/25 Loc: [facility] Room: Type: [facility] Attending Dr: Jaime Murcia II, MD [...] Bill M.D. 04/10/2025 1:53 PM Dictation Location: [place] [address] Transcribed By: [facility] 04/10/25 1353 Dictated By: Yaneth Bill II, MD 04/10/25 1352 Signed By: 04/10/25 1353 Normal [facility] Alanine aminotransferase [En zymatic activity/volume] in Serum or PlasmaOrdered By: Marley Dumont on 02-16-2025 ALT [Catalytic activity/Vol] Alanine aminotransferase [Enzymatic activity/volume] in Serum or Plasma [facility] Albumin [Mass/volume] in Ser um or Plasma by Bromocresol green (BCG) dye binding methoOrdered By: Marley Dumont on 02-16-2025 Albumin BCG dye [Mass/Vol] Albumin [Mass/volume] in Serum or Plasma by Bromocresol green (BCG) dye binding metho 3.5-5.7 [facility] Alkaline phosphatase [Enzyma tic activity/volume] in Serum or PlasmaOrdered By: Obhayde Wetzelomar on 02-16-2025 ALP [Catalytic activity/Vol] Alkaline phosphatase [Enzymatic activity/volume] in Serum or Plasma 34-104 [facility] Aspartate aminotransferase [ Enzymatic activity/volume] in Serum or PlasmaOrdered By: Obhayde Wetzelomar on 02-16-2025 AST [Catalytic activity/Vol] Aspartate aminotransferase [Enzymatic activity/volume] in Serum or Plasma 13-39 [facility] Basophils Auto (Bld) [#/Vol] Ordered By: Marley Wetzelomar on 02-16-2025 Basophils (Bld) [#/Vol] Automated basophil count 0.0-0.2 [facility] Basophils/100 WBC Auto (Bld) Ordered By: Obhayde Wetzelomar on 02-16-2025 Basophils/100 WBC (Bld) Automated basophil % . [facility] Bilirubin.total [Mass/volume ] in Serum or PlasmaOrdered By: Marley Lutzr on 02-16-2025 Bilirubin [Mass/Vol] Bilirubin.total [Mass/volume] in Serum or Plasma 0.3-1.0 [facility] Calcium [Mass/volume] in Ser um or PlasmaOrdered By: Marley Lutzr on 02-16-2025 Calcium [Mass/Vol] Calcium [Mass/volume ] in Serum or Plasma 8.6-10.3 [facility] Carbon dioxide, total [Moles /volume] in Serum or PlasmaOrdered By: Marley Wetzelomar on 02-16-2025 CO2 [Moles/Vol] Carbon dioxide, tota l [Moles/volume] in Serum or Plasma Low 21.0-31.0 [facility] Chloride [Moles/volume] in S ace or PlasmaOrdered By: Marley Lutzr on 02-16-2025 Chloride [Moles/Vol] Chloride [Moles/vol ume] in Serum or Plasma 98-107 [facility] Complete Blood Count Auto Di ffon 02-16-2025 Basophils (Bld) [#/Vol] 0.0 10*3/uL Normal 0.0-0.2 [facility] Comment on above: Result Comment: PERF ORMED BY: [place] [address] PATHOLOGIST [employer] H[employer]OR MEJIA M.D. Performed By: #### C MP, CBC #### [address] Basophils/100 WBC (Bld) 0.3 % Normal . [facility] Comment on above: Performed By: #### C MP, CBC #### [address] Eosinophils (Bld) [#/Vol] 0.1 10*3/uL Normal 0.0-0.45 [facility] Comment on above: Performed By: #### C MP, CBC #### [address] Eosinophils/100 WBC (Bld) 0.7 % Normal . [facility] Comment on above: Performed By: #### C MP, CBC #### [address] Erythrocyte distribution width (RBC) [Ratio] 15.4 % High 12.0-14.8 [facility] Comment on above: Performed By: #### C MP, CBC #### [address] Hematocrit (Bld) [Volume fraction] 46.5 % Normal 38.8-50.0 [facility] Comment on above: Performed By: #### C MP, CBC #### [address] Hemoglobin (Bld) [Mass/Vol] 16.0 g/dL Normal 13.0-17.0 [facility] Comment on above: Performed By: #### C MP, CBC #### [address] Lymphocytes (Bld) [#/Vol] 1.0 10*3/uL Normal 1.00-4.8 [facility] Comment on above: Performed By: #### C MP, CBC #### [address] Lymphocytes/100 WBC (Bld) 11.0 % Normal . [facility] Comment on above: Performed By: #### C MP, CBC #### [address] MCH (RBC) [Entitic mass] 31.5 pg Normal 27.5-35.2 [facility] Comment on above: Performed By: #### C MP, CBC #### [address] MCV (RBC) [Entitic vol] 91.6 fL Normal 83.5-101 [facility] Comment on above: Performed By: #### C MP, CBC #### [address] Mean Corpuscular HGB Conc 34.4 g/dL Normal 32.5-35.6 [facility] Comment on above: Performed By: #### C MP, CBC #### [address] Monocytes (Bld) [#/Vol] 0.9 10*3/uL High 0.0-0.8 [facility] Comment on above: Performed By: #### C MP, CBC #### [address] Monocytes/100 WBC (Bld) 9.6 % Normal . [facility] Comment on above: Performed By: #### C MP, CBC #### [address] Neutrophils (Bld) [#/Vol] 7.1 10*3/uL Normal 1.8-7.7 [facility] Comment on above: Performed By: #### C MP, CBC #### [address] Neutrophils/100 WBC (Bld) 78.4 % Normal . [facility] Comment on above: Performed By: #### C MP, CBC #### [address] NRBC% 0.1 /100{WBC} Normal 0-0.5 [facility] Comment on above: Performed By: #### C MP, CBC #### [address] Platelet mean volume (Bld) [Entitic vol] 8.0 fL Normal 6.6-10.1 [facility] Comment on above: Performed By: #### C MP, CBC #### [address] Platelets (Bld) [#/Vol] 166 10*3/uL Normal 150-450 [facility] Comment on above: Performed By: #### C MP, CBC #### [address] RBC (Bld) [#/Vol] 5.08 10*6/uL Normal 3.90-5.60 [facility] Comment on above: Performed By: #### C MP, CBC #### [address] WBC (Bld) [#/Vol] 9.1 10*3/uL Normal 4.1-10.5 [facility] Comment on above: Performed By: #### C MP, CBC #### [address] Comprehensive Metabolic Pane vivek 02-16-2025 Albumin [Mass/Vol] 4.1 g/dL Normal 3.5-5.7 [facility] Comment on above: Performed By: #### H S TROP #### [address] Albumin/Globulin [Mass ratio] 1.9 {ratio} Normal [facility] Comment on above: Performed By: #### H S TROP #### [address] ALP [Catalytic activity/Vol] 64 U/L Normal 34-104 [facility] Comment on above: Performed By: #### H S TROP #### [address] ALT [Catalytic activity/Vol] 21 U/L Normal 7-52 [facility] Comment on above: Performed By: #### H S TROP #### [address] Anion gap [Moles/Vol] 12.8 mmol/L Normal 6.0-15.0 [facility] Comment on above: Performed By: #### H S TROP #### [address] AST [Catalytic activity/Vol] 15 U/L Normal 13-39 [facility] Comment on above: Performed By: #### H S TROP #### [address] Bilirubin [Mass/Vol] 0.8 mg/dL Normal 0.3-1.0 [facility] Comment on above: Performed By: #### H S TROP #### [address] Calcium [Mass/Vol] 8.7 mg/dL Normal 8.6-10.3 [facility] Comment on above: Performed By: #### H S TROP #### [place] [address] [place] Chloride [Moles/Vol] 106 mmol/L Normal 98-107 [facility] Comment on above: Performed By: #### H S TROP #### [address] CO2 [Moles/Vol] 20.6 mmol/L Low 21.0-31.0 [facility] Comment on above: Performed By: #### H S TROP #### [address] Creatinine [Mass/Vol] 0.74 mg/dL Normal 0.70-1.30 [facility] Comment on above: Performed By: #### H S TROP #### [address] Creatinine Clr Calc Pharmacy 103.16 Normal [facility] Comment on above: Result Comment: PERF ORMED BY: [place] [address] PATHOLOGIST [employer] H[employer] MEJIA M.D. Performed By: #### H S TROP #### [address] GFR/1.73 sq M.predicted MDRD (S/P/Bld) [Vol rate/Area] mL/min/{1.73_m2} Normal [facility] Comment on above: Performed By: #### H S TROP #### [address] Globulin (S) [Mass/Vol] 2.2 g/dL Normal [facility] Comment on above: Performed By: #### H S TROP #### [address] Glucose [Mass/Vol] 85 mg/dL Normal 70-100 [facility] Comment on above: Result Comment: [place] Glucose Reference Range is dependent on time and content of last meal. Glucose of more than 200 mg/dL in a nonstressed, ambulatory subject supports the diagnosis of Diabetes Mellitus. ADA recommended reference range Performed By: #### H S TROP #### [address] Potassium [Moles/Vol] 4.4 mmol/L Normal 3.5-5.1 [facility] Comment on above: Performed By: #### H S TROP #### [address] Protein [Mass/Vol] 6.3 g/dL Low 6.4-8.9 [facility] Comment on above: Performed By: #### H S TROP #### [address] Sodium [Moles/Vol] 135 mmol/L Low 136-145 [facility] Comment on above: Performed By: #### H S TROP #### [facility] [address] Urea nitrogen [Mass/Vol] 21 mg/dL Normal 7-25 [facility] Comment on above: Performed By: #### H S TROP #### [facility] [address] Creatinine [Mass/volume] in Serum or PlasmaOrdered By: Obivonnedaclaritza Wetzelomar on 02-16-2025 Creatinine [Mass/Vol] Creatinine [Mass/v olume] in Serum or Plasma 0.70-1.30 [facility] Eosinophils Auto (Bld) [#/Vo l]Ordered By: Obivonnedaclaritza Wetzelomar on 02-16-2025 Eosinophils (Bld) [#/Vol] Automated eosinophil count 0.0-0.45 [facility] Eosinophils/100 WBC Auto (Bl d)Ordered By: Obivonnedah Rashardomar on 02-16-2025 Eosinophils/100 WBC (Bld) Automated eosinophil % . [facility] Erythrocyte distribution wid th Auto (RBC) [Ratio]Ordered By: Obivonnedaclaritza Wetzelomar on 02-16-2025 Erythrocyte distribution width (RBC) [Ratio] Erythrocyte distribution width [Ratio] by Automated count High 12.0-14.8 [facility] Globulin Calc (S) [Mass/Vol] Ordered By: Obhayde Wetzelomar on 02-16-2025 Globulin (S) [Mass/Vol] Serum globulin measurement by calculation (mass/volume) [facility] Glucose [Mass/volume] in Ser um or PlasmaOrdered By: Obhayde Wetzelomar on 02-16-2025 Glucose [Mass/Vol] Glucose [Mass/volume ] in Serum or Plasma 70-100 [facility] Comment on above: ADA recommended refe rence rangeRandom Glucose Reference Range is dependent on time and content of last meal. Glucose of more than 200 mg/dL in a nonstressed, ambulatory subject supports the diagnosis of Diabetes Mellitus. Hematocrit Auto (Bld) [Volum e fraction]Ordered By: ObivonnedauKnow Corporationomar on 02-16-2025 Hematocrit (Bld) [Volume fraction] Hematocrit [Volume Fraction] of Blood by Automated count 38.8-50.0 [facility] Hemoglobin [Mass/volume] in BloodOrdered By: Obivonnedaclaritza Wetzelomar on 02-16-2025 Hemoglobin (Bld) [Mass/Vol] Hemoglobin [Mass/volume] in Blood 13.0-17.0 [facility] Leukocytes [#/volume] correc nat for nucleated erythrocytes in Blood by Automated counOrdered By: Obivonnedaclaritza Wetzelomar on 02-16-2025 WBC corrected for nucl RBC Auto (Bld) [#/Vol] Leukocytes [#/volume] corrected for nucleated erythrocytes in Blood by Automated coun 4.1-10.5 [facility] Lymphocytes Auto (Bld) [#/Vo l]Ordered By: Obivonnedah Rashardomar on 02-16-2025 Lymphocytes (Bld) [#/Vol] Lymphocytes [#/volume] in Blood by Automated count 1.00-4.8 [facility] Lymphocytes/100 WBC Auto (Bl d)Ordered By: Obivonnedah Rashardomar on 02-16-2025 Lymphocytes/100 WBC (Bld) Lymphocytes/100 leukocytes in Blood by Automated count . [facility] MCH Auto (RBC) [Entitic mass ]Ordered By: Obivonnedah Rashardomar on 02-16-2025 MCH (RBC) [Entitic mass] MCH [Entitic mass] by Automated count 27.5-35.2 [facility] MCHC Auto (RBC) [Mass/Vol]Or dered By: Obivonnedah Rashardomar on 02-16-2025 MCHC (RBC) [Mass/Vol] MCHC [Mass/volume] by Automated count 32.5-35.6 [facility] MCV Auto (RBC) [Entitic vol] Ordered By: Obivonnedah Rashardomar on 02-16-2025 MCV (RBC) [Entitic vol] MCV [Entitic volume] by Automated count 83.5-101 [facility] Monocytes Auto (Bld) [#/Vol] Ordered By: Obivonnedah Rashardomar on 02-16-2025 Monocytes (Bld) [#/Vol] Automated blood monocyte count High 0.0-0.8 [facility] Monocytes/100 WBC Auto (Bld) Ordered By: Obhayde Lutzr on 02-16-2025 Monocytes/100 WBC (Bld) Automated monocyte % . [facility] Neutrophils Auto (Bld) [#/Vo l]Ordered By: Obivonnedaclaritza Wetzelomar on 02-16-2025 Neutrophils (Bld) [#/Vol] Neutrophils [#/volume] in Blood by Automated count 1.8-7.7 [facility] Neutrophils/100 WBC Auto (Bl d)Ordered By: Obivonnedaclaritza Wetzelomar on 02-16-2025 Neutrophils/100 WBC (Bld) Automated neutrophil % . [facility] No Panel InformationOrdered By: Obhayde Wetzelomar on 02-16-2025 Estimated GFR (CKD-EPI) > 60.0 mL/Min [facility] Creatinine Clearance (Chem 103.16 [facility] Nucleated erythrocytes [Pres ence] in Blood by Automated countOrdered By: Marley Lutzr on 02-16-2025 Nucleated RBC Auto Ql (Bld) Nucleated erythrocytes [Presence] in Blood by Automated count 0-0.5 [facility] Platelet mean volume Auto (B ld) [Entitic vol]Ordered By: Obivonnedaclaritza Wetzelomar on 02-16-2025 Platelet mean volume (Bld) [Entitic vol] Platelet mean volume [Entitic volume] in Blood by Automated count 6.6-10.1 [facility] Platelets Auto (Bld) [#/Vol] Ordered By: Obhayde Wetzelomar on 02-16-2025 Platelets (Bld) [#/Vol] Platelets [#/volume] in Blood by Automated count 150-450 [facility] Potassium [Moles/volume] in Serum or PlasmaOrdered By: Obhayde Wetzelomar on 02-16-2025 Potassium [Moles/Vol] Potassium [Moles/v olume] in Serum or Plasma 3.5-5.1 [facility] Protein [Mass/volume] in Ser um or PlasmaOrdered By: Obivonnedaclaritza Wetzelomar on 02-16-2025 Protein [Mass/Vol] Protein [Mass/volume ] in Serum or Plasma Low 6.4-8.9 [facility] RBC Auto (Bld) [#/Vol]Ordere d By: Obaydah Daromar on 02-16-2025 RBC (Bld) [#/Vol] Erythrocytes [#/volu me] in Blood by Automated count 3.90-5.60 [facility] Serum or plasma albumin/glob ulin mass ratioOrdered By: Marley Dumont on 02-16-2025 Albumin/Globulin [Mass ratio] Serum or plasma albumin/globulin mass ratio [facility] Serum or plasma anion gap de terminationOrdered By: Marley Dumont on 02-16-2025 Anion gap [Moles/Vol] Serum or plasma an ion gap determination 6.0-15.0 [facility] Sodium [Moles/volume] in Ser um or PlasmaOrdered By: Marley Dumont on 02-16-2025 Sodium [Moles/Vol] Sodium [Moles/volume ] in Serum or Plasma Low 136-145 [facility] Troponin I High Sensitivityo n 02-16-2025 Troponin I High Sensitivity 10 Normal 0-20 [facility] Comment on above: Result Comment: The Troponin units of report have been changed to meet the Chest Pain Accreditation requirement, element EC5.M1l2. Troponin units are changed from pg/ml to ng/L. Also, the decimal is removed and results are in whole numbers. PERFORMED BY: [place] [address] PATHOLOGIST ME[employer] WASH[employer] H[employer]OR MEJIA M.D. Performed By: #### E SR, DIFF CBC, ADDONUAPLUS, CMP #### [facility] [address] [place] [address] [place] #### CH50, C4, C3 #### [facility] , Troponin I.cardiac [Mass/vol ume] in Serum or Plasma by Detection limit <= 0.01 ng/Ordered By: Marley Dumont on 02-16-2025 Troponin I.cardiac DL <= 0.01 ng/mL [Mass/Vol] Troponin I.cardiac [Mass/volume] in Serum or Plasma by Detection limit <= 0.01 ng/ 0-20 [facility] Comment on above: The Troponin units o f report have been changed to meet the Chest Pain Accreditation requirement, element EC5.M1l2. Troponin units are changed from pg/ml to ng/L. Also, the decimal is removed and results are in whole numbers. Urea nitrogen [Mass/volume] in Serum or PlasmaOrdered By: Marley Dumont on 02-16-2025 Urea nitrogen [Mass/Vol] Urea nitrogen [Mass/volume] in Serum or Plasma 06-14 [facility] WBC Auto (Bld) [#/Vol]Ordere d By: Marley Dumont on 02-16-2025 WBC (Bld) [#/Vol] Leukocytes [#/volume ] in Blood by Automated count 4.1-10.5 [facility] B-Type Natriuretic Peptideon 02-15-2025 Natriuretic peptide B (Bld) [Mass/Vol] 31.0 pg/mL Normal 5-100 [facility] Comment on above: Result Comment: PERF ORMED BY: [place] [address] PATHOLOGIST [employer] H[employer] MEJIA M.D. Performed By: #### H S TROP #### [address] Basic Metabolic Panelon 01-20 Anion gap [Moles/Vol] 12.6 mmol/L Normal 6.0-15.0 [facility] Comment on above: Performed By: #### E SR, DIFF CBC, ADDONUAPLUS, CMP #### [facility] [address] [place] [address] [place] #### CH50, C4, C3 #### [facility] , Calcium [Mass/Vol] 9.6 mg/dL Normal 8.6-10.3 [facility] Comment on above: Performed By: #### E SR, DIFF CBC, ADDONUAPLUS, CMP #### [place] [address] [place] #### CH50, C4, C3 #### [facility] , Chloride [Moles/Vol] 105 mmol/L Normal 98-107 [facility] Comment on above: Performed By: #### E SR, DIFF CBC, ADDONUAPLUS, CMP #### [place] [address] [place] #### CH50, C4, C3 #### [facility] , CO2 [Moles/Vol] 22.4 mmol/L Normal 21.0-31.0 [facility] Comment on above: Performed By: #### E SR, DIFF CBC, ADDONUAPLUS, CMP #### [place] [address] [place] #### CH50, C4, C3 #### [facility] , Creatinine [Mass/Vol] 0.83 mg/dL Normal 0.70-1.30 [facility] Comment on above: Performed By: #### E SR, DIFF CBC, ADDONUAPLUS, CMP #### [address] #### CH50, C4, C3 #### [facility] , Creatinine Clr Calc Pharmacy 96.68 Normal [facility] Comment on above: Result Comment: PERF ORMED BY: [place] [address] PATHOLOGIST ME[employer] W[employer] H[employer]OR MEJIA M.D. Performed By: #### E SR, DIFF CBC, ADDONUAPLUS, CMP #### [place] [address] [place] #### CH50, C4, C3 #### [facility] , GFR/1.73 sq M.predicted MDRD (S/P/Bld) [Vol rate/Area] mL/min/{1.73_m2} Normal [facility] Comment on above: Performed By: #### E SR, DIFF CBC, ADDONUAPLUS, CMP #### [place] [address] [place] #### CH50, C4, C3 #### [facility] , Glucose [Mass/Vol] 105 mg/dL High 70-100 [facility] Comment on above: Result Comment: [place] Glucose Reference Range is dependent on time and content of last meal. Glucose of more than 200 mg/dL in a nonstressed, ambulatory subject supports the diagnosis of Diabetes Mellitus. ADA recommended reference range Performed By: #### E SR, DIFF CBC, ADDONUAPLUS, CMP #### [place] [address] [place] #### CH50, C4, C3 #### [facility] , Potassium [Moles/Vol] 4.0 mmol/L Normal 3.5-5.1 [facility] Comment on above: Performed By: #### E SR, DIFF CBC, ADDONUAPLUS, CMP #### [place] [address] [place] #### CH50, C4, C3 #### [facility] , Sodium [Moles/Vol] 136 mmol/L Normal 136-145 [facility] Comment on above: Performed By: #### E SR, DIFF CBC, ADDONUAPLUS, CMP #### [place] [address] [place] #### CH50, C4, C3 #### [facility] , Urea nitrogen [Mass/Vol] 25 mg/dL Normal 7-25 [facility] Comment on above: Performed By: #### E SR, DIFF CBC, ADDONUAPLUS, CMP #### [place] [address] [place] #### CH50, C4, C3 #### [facility] , Basophils Auto (Bld) [#/Vol] Ordered By: Romel Orta on 02-15-2025 Basophils (Bld) [#/Vol] Automated basophil count 0.0-0.2 [facility] Basophils/100 WBC Auto (Bld) Ordered By: Romel Orta on 02-15-2025 Basophils/100 WBC (Bld) Automated basophil % . [facility] Calcium [Mass/volume] in Ser um or PlasmaOrdered By: Romel Orta on 02-15-2025 Calcium [Mass/Vol] Calcium [Mass/volume ] in Serum or Plasma 8.6-10.3 [facility] Carbon dioxide, total [Moles /volume] in Serum or PlasmaOrdered By: Romel Orta on 02-15-2025 CO2 [Moles/Vol] Carbon dioxide, tota l [Moles/volume] in Serum or Plasma 21.0-31.0 [facility] Chloride [Moles/volume] in S ace or PlasmaOrdered By: Romel Orta on 02-15-2025 Chloride [Moles/Vol] Chloride [Moles/vol ume] in Serum or Plasma 98-107 [facility] Complete Blood Count Auto Di ffon 02-15-2025 Basophils (Bld) [#/Vol] 0.0 10*3/uL Normal 0.0-0.2 [facility] Comment on above: Result Comment: PERF ORMED BY: [place] [address] PATHOLOGIST MEAT WASHER EHCTOR MEJIA M.D. Performed By: #### H S TROP #### [address] Basophils/100 WBC (Bld) 0.3 % Normal . [facility] Comment on above: Performed By: #### H S TROP #### [place] [address] [place] Eosinophils (Bld) [#/Vol] 0.1 10*3/uL Normal 0.0-0.45 [facility] Comment on above: Performed By: #### H S TROP #### [place] [address] [place] Eosinophils/100 WBC (Bld) 0.5 % Normal . [facility] Comment on above: Performed By: #### H S TROP #### [address] Erythrocyte distribution width (RBC) [Ratio] 15.0 % High 12.0-14.8 [facility] Comment on above: Performed By: #### H S TROP #### [address] Hematocrit (Bld) [Volume fraction] 48.4 % Normal 38.8-50.0 [facility] Comment on above: Performed By: #### H S TROP #### [address] Hemoglobin (Bld) [Mass/Vol] 16.4 g/dL Normal 13.0-17.0 [facility] Comment on above: Performed By: #### H S TROP #### [address] Lymphocytes (Bld) [#/Vol] 1.0 10*3/uL Normal 1.00-4.8 [facility] Comment on above: Performed By: #### H S TROP #### [address] Lymphocytes/100 WBC (Bld) 10.3 % Normal . [facility] Comment on above: Performed By: #### H S TROP #### [address] MCH (RBC) [Entitic mass] 31.0 pg Normal 27.5-35.2 [facility] Comment on above: Performed By: #### H S TROP #### [address] MCV (RBC) [Entitic vol] 91.3 fL Normal 83.5-101 [facility] Comment on above: Performed By: #### H S TROP #### [address] Mean Corpuscular HGB Conc 33.9 g/dL Normal 32.5-35.6 [facility] Comment on above: Performed By: #### H S TROP #### [address] Monocytes (Bld) [#/Vol] 1.3 10*3/uL High 0.0-0.8 [facility] Comment on above: Performed By: #### H S TROP #### [place] [address] [place] Monocytes/100 WBC (Bld) 17.25 % Normal 0.00-20.00 [facility] Comment on above: Performed By: #### H S TROP #### [place] [address] [place] Monocytes/100 WBC (Bld) 14.0 % Normal . [facility] Comment on above: Performed By: #### H S TROP #### [address] Neutrophils (Bld) [#/Vol] 7.1 10*3/uL Normal 1.8-7.7 [facility] Comment on above: Performed By: #### H S TROP #### [address] Neutrophils/100 WBC (Bld) 74.9 % Normal . [facility] Comment on above: Performed By: #### H S TROP #### [address] NRBC% 0.1 /100{WBC} Normal 0-0.5 [facility] Comment on above: Performed By: #### H S TROP #### [address] Platelet mean volume (Bld) [Entitic vol] 7.9 fL Normal 6.6-10.1 [facility] Comment on above: Performed By: #### H S TROP #### [place] [address] [place] Platelets (Bld) [#/Vol] 204 10*3/uL Normal 150-450 [facility] Comment on above: Performed By: #### H S TROP #### [place] [address] [place] RBC (Bld) [#/Vol] 5.30 10*6/uL Normal 3.90-5.60 [facility] Comment on above: Performed By: #### H S TROP #### [address] [place] [address] [facility] WBC (Bld) [#/Vol] 9.5 10*3/uL Normal 4.1-10.5 [facility] Comment on above: Performed By: #### H S TROP #### [place] [id number] [facility] Creatine Kinaseon 02-15-2025 CK [Catalytic activity/Vol] 50 U/L Normal 30-223 [facility] Comment on above: Result Comment: PERF ORMED BY: [place] [address] PATHOLOGIST [employer] H[employer] MEJIA M.D. Performed By: #### H S TROP #### [place] [id number] [facility] Creatine kinase [Enzymatic a ctivity/volume] in Serum or PlasmaOrdered By: Romel Orta on 02-15-2025 CK [Catalytic activity/Vol] Creatine kinase [Enzymatic activity/volume] in Serum or Plasma 30-223 [facility] Creatinine [Mass/volume] in Serum or PlasmaOrdered By: Romel Orta on 02-15-2025 Creatinine [Mass/Vol] Creatinine [Mass/v olume] in Serum or Plasma 0.70-1.30 [facility] D-Dimer High Sensitivityon 0 02-15-2025 D-Dimer High Sensitivity 200 ng/mL Normal 0-243 [facility] Comment on above: Result [...] coagulation studies. Please contact the laboratory at [phone] for redraw instructions. PERFORMED BY: [place] [address] PATHOLOGIST [employer] H[employer] MEJIA M.D. Performed By: #### E SR, DIFF CBC, ADDONUAPLUS, CMP #### [place] [address] [place] #### CH50, C4, C3 #### [facility] , ECG 12 lead ECGon 02-15-2025 ECG 12 lead ECG [facility] Main [place] [id number] Electrocardiograph Report Signed Patient: Valentin Torre MR#: [id number] [birth year] : 1955 Acct:[id number] Age/Sex: 69 / M ADM Date: 02/15/25 Loc: Room: [address] [place] [address] Type: DIS INOo Attending Dr: Gabi Almanzar [...] in Inferior leads Confirmed by Bayron Tim ([id number]) on 02/19/2025 5:14:22 AM Referred By: Electronically Signed By: Bayron Tim Transcribed By: MUS Signed By Bayron Tim MD 02/19/25 0514 Normal [facility] ECG 12 lead ECG [facility] Main [place] [id number] Electrocardiograph Report Signed Patient: Valentin Torre MR#: [id number] [birth year] : 1955 Acct:[id number] Age/Sex: 69 / M ADM Date: 02/15/25 Loc: ER Room: Type: [facility] ER Attending Dr: Ordering Provider: Romel Orta [...] wave abnormality Confirmed by Martha Gomes MD ([id number]) on 02/15/2025 11:27:03 AM Referred By: Electronically Signed By: Martha Gomes MD Transcribed By: MUS Signed By Martha Gomes MD 01/20 07/15 1127 Normal [facility] Eosinophils Auto (Bld) [#/Vo l]Ordered By: Romel Orta on 02-15-2025 Eosinophils (Bld) [#/Vol] Automated eosinophil count 0.0-0.45 [facility] Eosinophils/100 WBC Auto (Bl d)Ordered By: Romel Orta on 02-15-2025 Eosinophils/100 WBC (Bld) Automated eosinophil % . [facility] Erythrocyte distribution wid th Auto (RBC) [Ratio]Ordered By: Romel Orta on 02-15-2025 Erythrocyte distribution width (RBC) [Ratio] Erythrocyte distribution width [Ratio] by Automated count High 12.0-14.8 [facility] Fibrin D-dimer [Presence] in Platelet poor plasma by Latex agglutinationOrdered By: Martha Gomes on 02-15-2025 Fibrin D-dimer LA Ql (PPP) Fibrin D-dimer [Presence] in Platelet poor plasma by Latex agglutination 0-243 [facility] Comment on above: The reference range for [...] coagulation studies. Please contact the laboratory at [phone] for redraw instructions. Glucose [Mass/volume] in Ser um or PlasmaOrdered By: Romel Orta on 02-15-2025 Glucose [Mass/Vol] Glucose [Mass/volume ] in Serum or Plasma High 70-100 [facility] Comment on above: ADA recommended refe rence rangeRandom Glucose Reference Range is dependent on time and content of last meal. Glucose of more than 200 mg/dL in a nonstressed, ambulatory subject supports the diagnosis of Diabetes Mellitus. Hematocrit Auto (Bld) [Volum e fraction]Ordered By: Romel Orta on 02-15-2025 Hematocrit (Bld) [Volume fraction] Hematocrit [Volume Fraction] of Blood by Automated count 38.8-50.0 [facility] Hemoglobin [Mass/volume] in BloodOrdered By: Romel Orta on 02-15-2025 Hemoglobin (Bld) [Mass/Vol] Hemoglobin [Mass/volume] in Blood 13.0-17.0 [facility] INR in Platelet poor plasma by Coagulation assayOrdered By: Romel Orta on 02-15-2025 INR Coag (PPP) [Relative time] INR in Platelet poor plasma by Coagulation assay [facility] Comment on above: INR Therapeutic Rang e [...] erythrocytes in Blood by Automated coun 4.1-10.5 [facility] Lymphocytes Auto (Bld) [#/Vo l]Ordered By: Romel Orta on 02-15-2025 Lymphocytes (Bld) [#/Vol] Lymphocytes [#/volume] in Blood by Automated count 1.00-4.8 [facility] Lymphocytes/100 WBC Auto (Bl d)Ordered By: Romel Orta on 02-15-2025 Lymphocytes/100 WBC (Bld) Lymphocytes/100 leukocytes in Blood by Automated count . [facility] MCH Auto (RBC) [Entitic mass ]Ordered By: Romel Orta on 02-15-2025 MCH (RBC) [Entitic mass] MCH [Entitic mass] by Automated count 27.5-35.2 [facility] MCHC Auto (RBC) [Mass/Vol]Or dered By: Romel Orta on 02-15-2025 MCHC (RBC) [Mass/Vol] MCHC [Mass/volume] by Automated count 32.5-35.6 [facility] MCV Auto (RBC) [Entitic vol] Ordered By: Romel Orta on 02-15-2025 MCV (RBC) [Entitic vol] MCV [Entitic volume] by Automated count 83.5-101 [facility] Monocyte distribution width [Entitic volume] in Blood by AutomatedOrdered By: Romel Orta on 02-15-2025 Monocyte distribution width Auto (Bld) [Entitic vol] Monocyte distribution width [Entitic volume] in Blood by Automated 0.00-20.00 [facility] Monocytes Auto (Bld) [#/Vol] Ordered By: Romel Orta on 02-15-2025 Monocytes (Bld) [#/Vol] Automated blood monocyte count High 0.0-0.8 [facility] Monocytes/100 WBC Auto (Bld) Ordered By: Romel Orta on 02-15-2025 Monocytes/100 WBC (Bld) Automated monocyte % . [facility] Natriuretic peptide B [Mass/ Vol]Ordered By: Romel Orta on 02-15-2025 Natriuretic peptide B (Bld) [Mass/Vol] BNP ser/plas 5-100 [facility] Neutrophils Auto (Bld) [#/Vo l]Ordered By: Romel Orta on 02-15-2025 Neutrophils (Bld) [#/Vol] Neutrophils [#/volume] in Blood by Automated count 1.8-7.7 [facility] Neutrophils/100 WBC Auto (Bl d)Ordered By: Romel Orta on 02-15-2025 Neutrophils/100 WBC (Bld) Automated neutrophil % . [facility] No Panel InformationOrdered By: Romel Orta on 02-15-2025 Estimated GFR (CKD-EPI) > 60.0 mL/Min [facility] Creatinine Clearance (Chem 96.68 [facility] Nucleated erythrocytes [Pres ence] in Blood by Automated countOrdered By: Romel Orta on 02-15-2025 Nucleated RBC Auto Ql (Bld) Nucleated erythrocytes [Presence] in Blood by Automated count 0-0.5 [facility] Platelet mean volume Auto (B ld) [Entitic vol]Ordered By: Romel Orta on 02-15-2025 Platelet mean volume (Bld) [Entitic vol] Platelet mean volume [Entitic volume] in Blood by Automated count 6.6-10.1 [facility] Platelets Auto (Bld) [#/Vol] Ordered By: Romel Orta on 02-15-2025 Platelets (Bld) [#/Vol] Platelets [#/volume] in Blood by Automated count 150-450 [facility] Potassium [Moles/volume] in Serum or PlasmaOrdered By: Romel Orta on 02-15-2025 Potassium [Moles/Vol] Potassium [Moles/v olume] in Serum or Plasma 3.5-5.1 [facility] Prothrombin Time INRon 02-15 INR Coag (PPP) [Relative time] 1.1 {INR} Normal [facility] Comment on above: Result [...] heart valves: 3 - 4.5 PERFORMED BY: [place] [address] PATHOLOGIST [employer] MEJIA M.D. Performed By: #### H S TROP #### [place] [id number] [facility] PT Coag (PPP) [Time] 12.0 s Normal 9.0-12.9 [facility] Comment on above: Result Comment: A matocrit value greater than 55% may lead to inaccurate results in coagulation testing. Patients having hematocrit values >55% require a special collection tube for coagulation studies. Please contact the laboratory at [phone] for redraw instructions. Performed By: #### H S TROP #### [place] [id number] [facility] Prothrombin time (PT)Ordered By: Romel Orta on 02-15-2025 PT Coag (PPP) [Time] Prothrombin time (PT) 9.0- 12.9 [facility] Comment on above: A hematocrit value g reater than 55% may lead to inaccurate results in coagulation testing. Patients having hematocrit values >55% require a special collection tube for coagulation studies. Please contact the laboratory at [phone] for redraw instructions. RBC Auto (Bld) [#/Vol]Ordere d By: Romel Orta on 02-15-2025 RBC (Bld) [#/Vol] Erythrocytes [#/volu me] in Blood by Automated count 3.90-5.60 [facility] Serum or plasma anion gap de terminationOrdered By: Romel Orta on 02-15-2025 Anion gap [Moles/Vol] Serum or plasma an ion gap determination 6.0-15.0 [facility] Sodium [Moles/volume] in Ser um or PlasmaOrdered By: Romel Orta on 02-15-2025 Sodium [Moles/Vol] Sodium [Moles/volume ] in Serum or Plasma 136-145 [facility] Troponin I High Sensitivityo n 02-15-2025 Troponin I High Sensitivity 10 Normal 0-20 [facility] Comment on above: Result Comment: The Troponin units of report have been changed to meet the Chest Pain Accreditation requirement, element EC5.M1l2. Troponin units are changed from pg/ml to ng/L. Also, the decimal is removed and results are in whole numbers. PERFORMED BY: [place] [address] PATHOLOGIST [employer] H[employer] MEJIA M.D. Performed By: #### H S TROP #### [address] Performed By: #### E SR, DIFF CBC, ADDONUAPLUS, CMP #### [facility] [address] [place] [address] #### CH50, C4, C3 #### [facility] , Troponin I High Sensitivity 8 Normal 0-20 [facility] Comment on above: Result Comment: The Troponin units of report have been changed to meet the Chest Pain Accreditation requirement, element EC5.M1l2. Troponin units are changed from pg/ml to ng/L. Also, the decimal is removed and results are in whole numbers. PERFORMED BY: [place] [address] PATHOLOGIST ME[employer] H[employer] MEJIA M.D. Performed By: #### H S TROP #### [address] Troponin I.cardiac [Mass/vol ume] in Serum or Plasma by Detection limit <= 0.01 ng/Ordered By: Martha Gomes on 02-15-2025 Troponin I.cardiac DL <= 0.01 ng/mL [Mass/Vol] Troponin I.cardiac [Mass/volume] in Serum or Plasma by Detection limit <= 0.01 ng/ 0-20 [facility] Comment on above: The Troponin units o f report have been changed to meet the Chest Pain Accreditation requirement, element EC5.M1l2. Troponin units are changed from pg/ml to ng/L. Also, the decimal is removed and results are in whole numbers. Urea nitrogen [Mass/volume] in Serum or PlasmaOrdered By: Romel Orta on 02-15-2025 Urea nitrogen [Mass/Vol] Urea nitrogen [Mass/volume] in Serum or Plasma 06-14 [facility] WBC Auto (Bld) [#/Vol]Ordere d By: Romel Orta on 02-15-2025 WBC (Bld) [#/Vol] Leukocytes [#/volume ] in Blood by Automated count 4.1-10.5 [facility] X-ray reportOrdered By: Jorge Mayer on 02-15-2025 Study report [facility] Main [address] [address] XRay Report Signed Patient: Valentin Torre MR#: [id number] : 1955 Acct:[id number] Age/Sex: 69 / M ADM Date: 5 Loc: ER Room: Type: [facility] ER Attending Dr: Copies to: MD Romel Ewing, ~ Ordering Provider: Romel Orta DO Date of Service: 02/15/25 XR/XR chest 1V portable: Chest Pain SINGLE VIEW CHEST CLINICAL HISTORY: Midsternal chest pain, short of breath COMPARISON: 09/19/2024 FINDINGS: Unremarkable cardiomediastinal silhouette. Lungs clear. No effusion XR/XR chest 1V portable IMPRESSION: NO ACUTE FINDINGS Impression dictated by: Alo Mayer M.D.02/15/2025 10:47 AM Dictation Location: [place] [address] Transcribed By: MARV 02/15/25 1047 Dictated By: Alo Mayer MD 02/15/25 1043 Signed By: 02/15/25 1047 [facility] Work Phone: XR chest 1V portableon 02-15 XR chest 1V portable [facility] Main [address] [address] XRay Report Signed Patient: Valentin Torre MR#: [id number] 29 : 1955 Acct:[id number] Age/Sex: 69 / M ADM Date: 02/15/25 Loc: ER Room: Type: [facility] ER Attending Dr: Copies to: MD Romel Ewing DO Ordering Provider: Romel Orta DO Date of Service: 02/15/25 XR/XR chest 1V portable: Chest Pain SINGLE VIEW CHEST CLINICAL HISTORY: Midsternal chest pain, short of breath COMPARISON: 09/19/2024 FINDINGS: Unremarkable cardiomediastinal silhouette. Lungs clear. No effusion XR/XR chest 1V portable IMPRESSION: NO ACUTE FINDINGS Impression dictated by: Alo Mayer M.D.02/15/2025 10:47 AM Dictation Location: [place] [address] Transcribed By: [facility] 02/15/25 1047 Dictated By: Alo Mayer MD 02/15/25 1043 Signed By: 02/15/25 1047 Normal [facility] X-ray reportOrdered By: Isaura Alexandra on 01-25-2025 Study report [facility] [place] [address] XRay Report Signed Patient: Valentin Torre MR#: [id number] : 1955 Acct:[id number] Age/Sex: 69 / M ADM Date: 5 Loc: XD Room: Type: [facility] CLI Attending Dr: Sascha Sutton DO Copies [...] Christine Alexandra M.D.01/25/2025 10:48 PM Dictation Location: [facility] Transcribed By: MARV 01/25/252247 Dictated By: Christine Alexandra MD 01/25/252243 Signed By: 01/25/252247 [facility] Work Phone: XR ankle RT min 3V*on 2024 XR ankle RT min 3V* [facility] [place] [address] XRay Report Signed Patient: Vlaentin Torre MR#: [id number] [birth year] : 1955 Acct:[id number] Age/Sex: 69 / M ADM Date: 01/25/25 Loc: XD Room: Type: [facility] Attending Dr: Sascha Sutton DO Copies [...] Christine Alexandra M.D.01/25/2025 10:48 PM Dictation Location: [facility] Transcribed By: MARV 01/25/252247 Dictated By: Christine Alexandra MD 01/25/252243 Signed By: 01/25/252247 Normal [facility] Alanine aminotransferase [En zymatic activity/volume] in Serum or PlasmaOrdered By: Romel Davis on 01-14-2025 ALT [Catalytic activity/Vol] Alanine aminotransferase [Enzymatic activity/volume] in Serum or Plasma [facility] Albumin [Mass/volume] in Ser um or Plasma by Bromocresol green (BCG) dye binding methoOrdered By: Romel Davis on 01-14-2025 Albumin BCG dye [Mass/Vol] Albumin [Mass/volume] in Serum or Plasma by Bromocresol green (BCG) dye binding metho 3.5-5.7 [facility] Alkaline phosphatase [Enzyma tic activity/volume] in Serum or PlasmaOrdered By: Romel Davis on 01-14-2025 ALP [Catalytic activity/Vol] Alkaline phosphatase [Enzymatic activity/volume] in Serum or Plasma 34-104 [facility] Appearance of UrineOrdered B y: Romel Davis on 01-14-2025 Appearance (U) Urine appearance Clear [facility] Aspartate aminotransferase [ Enzymatic activity/volume] in Serum or PlasmaOrdered By: Romel Davis on 01-14-2025 AST [Catalytic activity/Vol] Aspartate aminotransferase [Enzymatic activity/volume] in Serum or Plasma 13-39 [facility] Bacteria [Presence] in Urine by AutomatedOrdered By: Romel Davis on 01-14-2025 Bacteria Auto Ql (U) Bacteria [Presence] in Urine by Automated None Seen [facility] Basophils Auto (Bld) [#/Vol] Ordered By: Romel Davis on 01-14-2025 Basophils (Bld) [#/Vol] Automated basophil count 0.0-0.2 [facility] Basophils/100 WBC Auto (Bld) Ordered By: Romel Davis on 01-14-2025 Basophils/100 WBC (Bld) Automated basophil % . [facility] Bilirubin Test strip Ql (U)O rdered By: Romel Davis on 01-14-2025 Bilirubin Ql (U) Bilirubin.total [Pre sence] in Urine by Test strip Negative [facility] Bilirubin.total [Mass/volume ] in Serum or PlasmaOrdered By: Romel Davis on 01-14-2025 Bilirubin [Mass/Vol] Bilirubin.total [Mass/volume] in Serum or Plasma 0.3-1.0 [facility] Calcium [Mass/volume] in Ser um or PlasmaOrdered By: Romel Davis on 01-14-2025 Calcium [Mass/Vol] Calcium [Mass/volume ] in Serum or Plasma 8.6-10.3 [facility] Carbon dioxide, total [Moles /volume] in Serum or PlasmaOrdered By: Romel Davis on 01-14-2025 CO2 [Moles/Vol] Carbon dioxide, tota l [Moles/volume] in Serum or Plasma 21.0-31.0 [facility] Chloride [Moles/volume] in S ace or PlasmaOrdered By: Romel Daivs on 01-14-2025 Chloride [Moles/Vol] Chloride [Moles/vol ume] in Serum or Plasma 98-107 [facility] Color Auto (U)Ordered By: Bridgett ttomerw Ryan on 01-14-2025 Color (U) Color of Urine by Auto Yellow Fi [facility] Complement C3on 01-14-2025 Complement C3 129 mg/dL Normal 82-167 [facility] Comment on above: Result Comment: Perf ormed at: - [facility] [place] [id number] Lettuce Cutter: Richy Ardon PhD, Phone: [phone] Performed By: #### H S TROP #### [facility] [address] [place] [address] Complement C4on 01-14-2025 Complement C4 15 mg/dL Normal 12-38 [facility] Comment on above: Result Comment: PERF ORMED BY: [place] [address] PATHOLOGIST ME[employer] W[employer] H[employer] MEJIA M.D. Performed By: #### E SR, DIFF CBC, ADDONUAPLUS, CMP #### [facility] [address] [place] [address] #### CH50, C4, C3 #### [facility] , Complement Total (CH50)on Complement Total (CH50) 57 Normal >41 [facility] Comment on above: Result [...] of range values. Performed at: - [facility] [address] [id number] Lettuce Cutter: Richy Ardon PhD, Phone: [phone] PERFORMED BY: [place] [address] PATHOLOGIST ME[employer] W[employer] H[employer] MEJIA M.D. Performed By: #### E SR, DIFF CBC, ADDONUAPLUS, CMP #### [address] #### CH50, C4, C3 #### [facility] , [facility] 01-14-2025 Albumin [Mass/Vol] 3.9 g/dL Normal 3.5-5.7 [facility] Comment on above: Performed By: #### H S TROP #### [address] Albumin/Globulin [Mass ratio] 1.9 {ratio} Normal [facility] Comment on above: Performed By: #### H S TROP #### [address] ALP [Catalytic activity/Vol] 81 U/L Normal 34-104 [facility] Comment on above: Result Comment: PERF ORMED BY: [place] [address] PATHOLOGIST ME[employer] W[employer] H[employer] MEJIA M.D. Performed By: #### H S TROP #### [address] ALT [Catalytic activity/Vol] 39 U/L Normal 7-52 [facility] Comment on above: Performed By: #### H S TROP #### [address] Anion gap [Moles/Vol] 10.8 mmol/L Normal 6.0-15.0 [facility] Comment on above: Performed By: #### H S TROP #### [address] AST [Catalytic activity/Vol] 23 U/L Normal 13-39 [facility] Comment on above: Performed By: #### H S TROP #### [address] Bilirubin [Mass/Vol] 0.6 mg/dL Normal 0.3-1.0 [facility] Comment on above: Performed By: #### H S TROP #### [address] Calcium [Mass/Vol] 9.1 mg/dL Normal 8.6-10.3 [facility] Comment on above: Performed By: #### H S TROP #### [address] Chloride [Moles/Vol] 106 mmol/L Normal 98-107 [facility] Comment on above: Performed By: #### H S TROP #### [address] CO2 [Moles/Vol] 26.4 mmol/L Normal 21.0-31.0 [facility] Comment on above: Performed By: #### H S TROP #### [address] Creatinine [Mass/Vol] 0.81 mg/dL Normal 0.70-1.30 [facility] Comment on above: Performed By: #### H S TROP #### [place] [address] [place] GFR/1.73 sq M.predicted MDRD (S/P/Bld) [Vol rate/Area] mL/min/{1.73_m2} Normal [facility] Comment on above: Performed By: #### H S TROP #### [address] Globulin (S) [Mass/Vol] 2.1 g/dL Normal [facility] Comment on above: Performed By: #### H S TROP #### [address] [place] [address] [place] Glucose [Mass/Vol] 121 mg/dL High 70-100 [facility] Comment on above: Result Comment: [place] Glucose Reference Range is dependent on time and content of last meal. Glucose of more than 200 mg/dL in a nonstressed, ambulatory subject supports the diagnosis of Diabetes Mellitus. ADA recommended reference range Performed By: #### H S TROP #### [address] Potassium [Moles/Vol] 4.2 mmol/L Normal 3.5-5.1 [facility] Comment on above: Performed By: #### H S TROP #### [address] Protein [Mass/Vol] 6.0 g/dL Low 6.4-8.9 [facility] Comment on above: Performed By: #### H S TROP #### [address] Sodium [Moles/Vol] 139 mmol/L Normal 136-145 [facility] Comment on above: Performed By: #### H S TROP #### [place] [address] [place] Urea nitrogen [Mass/Vol] 19 mg/dL Normal 7-25 [facility] Comment on above: Performed By: #### H S TROP #### [place] [address] [place] Creatinine [Mass/volume] in Serum or PlasmaOrdered By: Romel Davis on 01-14-2025 Creatinine [Mass/Vol] Creatinine [Mass/v olume] in Serum or Plasma 0.70-1.30 [facility] Dipstick and Microscopicon 0 01-14-2025 Appearance (U) Clear Normal Clear [facility] Comment on above: Order Comment: Name Collection Type:: Clean-Voided Midstream Performed By: #### H S TROP #### [address] Bacteria,Urine None Seen Normal None Seen [facility] Comment on above: Order Comment: Name Collection Type:: Clean-Voided Midstream Performed By: #### H S TROP #### [place] [address] [place] Bilirubin,Urine Negative Normal Negative [facility] Comment on above: Order Comment: Name Collection Type:: Clean-Voided Midstream Performed By: #### H S TROP #### [facility] [address] [place] [address] [place] Color (U) Yellow Normal Yellow [facility] Comment on above: Order Comment: Name Collection Type:: Clean-Voided Midstream Performed By: #### H S TROP #### [place] [address] [place] Glucose Ql (U) Normal Normal Normal [facility] Comment on above: Order Comment: Name Collection Type:: Clean-Voided Midstream Performed By: #### H S TROP #### [place] [address] [place] Hyaline Casts,Urine None Normal 0-8 [facility] Comment on above: Order Comment: Name Collection Type:: Clean-Voided Midstream Performed By: #### H S TROP #### [place] [address] [place] Ketones Ql (U) Negative Normal Negative [facility] Comment on above: Order Comment: Name Collection Type:: Clean-Voided Midstream Performed By: #### H S TROP #### [place] [address] [place] Leukocyte esterase Test strip Ql (U) Negative Normal Negative [facility] Comment on above: Order Comment: Name Collection Type:: Clean-Voided Midstream Performed By: #### H S TROP #### [place] [address] [place] Mucus,Urine Rare Normal [facility] Comment on above: Order Comment: Name Collection Type:: Clean-Voided Midstream Result Comment: PERF ORMED BY: [place] [address] PATHOLOGIST [employer]OR MEJIA M.D. Performed By: #### H S TROP #### [place] [address] [place] Nitrite,Urine Negative Normal Negative [facility] Comment on above: Order Comment: Name Collection Type:: Clean-Voided Midstream Performed By: #### H S TROP #### [place] [address] [place] Occult Blood,Urine Negative Normal Negative [facility] Comment on above: Order Comment: Name Collection Type:: Clean-Voided Midstream Performed By: #### H S TROP #### [place] [address] [place] pH (U) 7.5 [pH] Normal 5.0-9.0 [facility] Comment on above: Order Comment: Name Collection Type:: Clean-Voided Midstream Performed By: #### H S TROP #### [place] [address] [place] Protein (U) [Mass/Vol] 30 mg/dL High Negative [facility] Comment on above: Order Comment: Name Collection Type:: Clean-Voided Midstream Performed By: #### H S TROP #### [place] [address] [place] RBC,Urine 1-2 Normal 0-4 [facility] Comment on above: Order Comment: Name Collection Type:: Clean-Voided Midstream Performed By: #### H S TROP #### [place] [address] [place] Specificy [place],Urine 1.029 Normal 1.001-1.03 0 [facility] Comment on above: Order Comment: Name Collection Type:: Clean-Voided Midstream Performed By: #### H S TROP #### [place] [address] [place] Urobilinogen,Urine Normal Normal Normal [facility] Comment on above: Order Comment: Name Collection Type:: Clean-Voided Midstream Performed By: #### H S TROP #### [place] [address] [place] WBC,Urine 1-2 Normal 0-4 [facility] Comment on above: Order Comment: Name Collection Type:: Clean-Voided Midstream Performed By: #### H S TROP #### [facility] [address] [place] [address] Eosinophils Auto (Bld) [#/Vo l]Ordered By: Romel Davis on 01-14-2025 Eosinophils (Bld) [#/Vol] Automated eosinophil count 0.0-0.45 [facility] Eosinophils/100 WBC Auto (Bl d)Ordered By: Romel Davis on 01-14-2025 Eosinophils/100 WBC (Bld) Automated eosinophil % . [facility] Epithelial cells.squamous [# /area] in Urine sediment by Automated countOrdered By: Romel Davis on 01-14-2025 Epithelial cells.squamous Auto (Urine sed) [#/Area] Epithelial cells.squamous [#/area] in Urine sediment by Automated count [facility] Erythrocyte Sedimentation Ra bruno 01-14-2025 ESR (Bld) [Velocity] 6 mm/h Normal 0-19 [facility] Comment on above: Result Comment: PERF ORMED BY: [place] [address] PATHOLOGIST [employer] H[employer] MEJIA M.D. Performed By: #### H S TROP #### [address] Erythrocyte distribution wid th Auto (RBC) [Ratio]Ordered By: Romel Davis on 01-14-2025 Erythrocyte distribution width (RBC) [Ratio] Erythrocyte distribution width [Ratio] by Automated count High 12.0-14.8 [facility] Erythrocyte morphology findi ng [Identifier] in BloodOrdered By: Romel Davis on 01-14-2025 RBC morphology finding Nom (Bld) RBC morphology Normal [facility] Erythrocyte sedimentation ra te by Photometric methodOrdered By: Romel Davis on 01-14-2025 ESR Photometric method (Bld) [Velocity] Erythrocyte sedimentation rate by Photometric method 0-19 [facility] Erythrocytes [#/area] in Uri ne sediment by Automated countOrdered By: Romel Davis on 01-14-2025 RBC Auto (Urine sed) [#/Area] Erythrocytes [#/area] in Urine sediment by Automated count 0-4 [facility] Globulin Calc (S) [Mass/Vol] Ordered By: Romel Davis on 01-14-2025 Globulin (S) [Mass/Vol] Serum globulin measurement by calculation (mass/volume) [facility] Glucose [Mass/volume] in Ser um or PlasmaOrdered By: Romel Davis on 01-14-2025 Glucose [Mass/Vol] Glucose [Mass/volume ] in Serum or Plasma High 70-100 [facility] Comment on above: ADA recommended refe rence rangeRandom Glucose Reference Range is dependent on time and content of last meal. Glucose of more than 200 mg/dL in a nonstressed, ambulatory subject supports the diagnosis of Diabetes Mellitus. Glucose [Mass/volume] in Uri ne by Test stripOrdered By: Romel Davis on 01-14-2025 Glucose Test strip (U) [Mass/Vol] Glucose [Mass/volume] in Urine by Test strip Normal [facility] Hematocrit Auto (Bld) [Volum e fraction]Ordered By: Romel Davis on 01-14-2025 Hematocrit (Bld) [Volume fraction] Hematocrit [Volume Fraction] of Blood by Automated count 38.8-50.0 [facility] Hemoglobin Test strip Ql (U) Ordered By: Romel Davis on 01-14-2025 Hemoglobin Ql (U) Hemoglobin [Presence ] in Urine by Test strip Negative [facility] Hemoglobin [Mass/volume] in BloodOrdered By: Romel Davis 01-14-2025 Hemoglobin (Bld) [Mass/Vol] Hemoglobin [Mass/volume] in Blood 13.0-17.0 [facility] Hyaline casts [#/area] in Ur ine sediment by Automated countOrdered By: Romel Davis 01-14-2025 Hyaline casts Auto (Urine sed) [#/Area] Hyaline casts [#/area] in Urine sediment by Automated count 0-8 [facility] Ketones Test strip Ql (U)Ord ered By: Romel Davis on 01-14-2025 Ketones Ql (U) Ketones [Presence] i n Urine by Test strip Negative [facility] Leukocyte esterase [Presence ] in Urine by Test stripOrdered By: Romel Davis on 01-14-2025 Leukocyte esterase Test strip Ql (U) Leukocyte esterase [Presence] in Urine by Test strip Negative [facility] Leukocytes [#/area] in Urine sediment by Automated countOrdered By: Romel Davis on 01-14-2025 WBC Auto (Urine sed) [#/Area] Leukocytes [#/area] in Urine sediment by Automated count 0-4 [facility] Leukocytes [#/volume] correc nat for nucleated erythrocytes in Blood by Automated counOrdered By: Romel Davis on 01-14-2025 WBC corrected for nucl RBC Auto (Bld) [#/Vol] Leukocytes [#/volume] corrected for nucleated erythrocytes in Blood by Automated coun 4.1-10.5 [facility] Lymphocytes Auto (Bld) [#/Vo l]Ordered By: Romel Davis on 01-14-2025 Lymphocytes (Bld) [#/Vol] Lymphocytes [#/volume] in Blood by Automated count Low 1.00-4.8 [facility] Lymphocytes/100 WBC Auto (Bl d)Ordered By: Romel Davis on 01-14-2025 Lymphocytes/100 WBC (Bld) Lymphocytes/100 leukocytes in Blood by Automated count . [facility] MCH Auto (RBC) [Entitic mass ]Ordered By: Romel Davis on 01-14-2025 MCH (RBC) [Entitic mass] MCH [Entitic mass] by Automated count 27.5-35.2 [facility] MCHC Auto (RBC) [Mass/Vol]Or dered By: Romel Davis on 01-14-2025 MCHC (RBC) [Mass/Vol] MCHC [Mass/volume] by Automated count 32.5-35.6 [facility] MCV Auto (RBC) [Entitic vol] Ordered By: Romel Davis on 01-14-2025 MCV (RBC) [Entitic vol] MCV [Entitic volume] by Automated count 83.5-101 [facility] Monocytes Auto (Bld) [#/Vol] Ordered By: Romel Davis on 01-14-2025 Monocytes (Bld) [#/Vol] Automated blood monocyte count 0.0-0.8 [facility] Monocytes/100 WBC Auto (Bld) Ordered By: Romel Davis on 01-14-2025 Monocytes/100 WBC (Bld) Automated monocyte % . [facility] Mucus [Presence] in Urine by AutomatedOrdered By: Romel Davis on 01-14-2025 Mucus Auto Ql (U) Mucus [Presence] in Urine by Automated [facility] Neutrophils Auto (Bld) [#/Vo l]Ordered By: Romel Davis on 01-14-2025 Neutrophils (Bld) [#/Vol] Neutrophils [#/volume] in Blood by Automated count 1.8-7.7 [facility] Neutrophils/100 WBC Auto (Bl d)Ordered By: Romel Davis on 01-14-2025 Neutrophils/100 WBC (Bld) Automated neutrophil % . [facility] Nitrite Test strip Ql (U)Ord ered By: Romel Dvais on 01-14-2025 Nitrite Ql (U) Nitrite [Presence] i n Urine by Test strip Negative [facility] No Panel InformationOrdered By: Romel Davis on 01-14-2025 Estimated GFR (CKD-EPI) > 60.0 mL/Min [facility] Creatinine Clearance (Chem N/A [facility] Nucleated erythrocytes [Pres ence] in Blood by Automated countOrdered By: Romel Davis on 01-14-2025 Nucleated RBC Auto Ql (Bld) Nucleated erythrocytes [Presence] in Blood by Automated count 0-0.5 [facility] Platelet adequacy [Presence] in Blood by Light microscopyOrdered By: Romel Davis on 01-14-2025 Platelets LM Ql (Bld) Platelet adequacy [Presence] in Blood by Light microscopy Normal [facility] Platelet mean volume Auto (B ld) [Entitic vol]Ordered By: Romel Davis on 01-14-2025 Platelet mean volume (Bld) [Entitic vol] Platelet mean volume [Entitic volume] in Blood by Automated count 6.6-10.1 [facility] Platelet morphology finding [Identifier] in BloodOrdered By: Romel Davis on 01-14-2025 Platelet morphology finding Nom (Bld) Platelet morphology finding [Identifier] in Blood Normal [facility] Platelets Auto (Bld) [#/Vol] Ordered By: Romel Davis on 01-14-2025 Platelets (Bld) [#/Vol] Platelets [#/volume] in Blood by Automated count 150-450 [facility] Potassium [Moles/volume] in Serum or PlasmaOrdered By: Romel aDvis on 01-14-2025 Potassium [Moles/Vol] Potassium [Moles/v olume] in Serum or Plasma 3.5-5.1 [facility] Protein Test strip (U) [Mass /Vol]Ordered By: Romel Davis on 01-14-2025 Protein (U) [Mass/Vol] Protein [Mass/vol ume] in Urine by Test strip High Negative [facility] Protein [Mass/volume] in Ser um or PlasmaOrdered By: Romel Davis on 01-14-2025 Protein [Mass/Vol] Protein [Mass/volume ] in Serum or Plasma Low 6.4-8.9 [facility] RBC Auto (Bld) [#/Vol]Ordere d By: Romel Davis on 01-14-2025 RBC (Bld) [#/Vol] Erythrocytes [#/volu me] in Blood by Automated count 3.90-5.60 [facility] Scan and CBCon 01-14-2025 Basophils (Bld) [#/Vol] 0.0 10*3/uL Normal 0.0-0.2 [facility] Comment on above: Performed By: #### H S TROP #### [place] [address] [place] Basophils/100 WBC (Bld) 0.5 % Normal . [facility] Comment on above: Performed By: #### H S TROP #### [facility] [address] [place] [address] [place] Eosinophils (Bld) [#/Vol] 0.1 10*3/uL Normal 0.0-0.45 [facility] Comment on above: Performed By: #### H S TROP #### [place] [address] [place] Eosinophils/100 WBC (Bld) 1.2 % Normal . [facility] Comment on above: Performed By: #### H S TROP #### [address] Erythrocyte distribution width (RBC) [Ratio] 15.0 % High 12.0-14.8 [facility] Comment on above: Performed By: #### H S TROP #### [address] Hematocrit (Bld) [Volume fraction] 44.3 % Normal 38.8-50.0 [facility] Comment on above: Performed By: #### H S TROP #### [address] Hemoglobin (Bld) [Mass/Vol] 15.3 g/dL Normal 13.0-17.0 [facility] Comment on above: Performed By: #### H S TROP #### [address] Lymphocytes (Bld) [#/Vol] 0.8 10*3/uL Low 1.00-4.8 [facility] Comment on above: Performed By: #### H S TROP #### [address] Lymphocytes/100 WBC (Bld) 17.5 % Normal . [facility] Comment on above: Performed By: #### H S TROP #### [address] MCH (RBC) [Entitic mass] 31.1 pg Normal 27.5-35.2 [facility] Comment on above: Performed By: #### H S TROP #### [address] MCV (RBC) [Entitic vol] 90.0 fL Normal 83.5-101 [facility] Comment on above: Performed By: #### H S TROP #### [address] Mean Corpuscular HGB Conc 34.5 g/dL Normal 32.5-35.6 [facility] Comment on above: Performed By: #### H S TROP #### [place] [address] [place] Monocytes (Bld) [#/Vol] 0.4 10*3/uL Normal 0.0-0.8 [facility] Comment on above: Performed By: #### H S TROP #### [address] Monocytes/100 WBC (Bld) 8.1 % Normal . [facility] Comment on above: Performed By: #### H S TROP #### [address] Neutrophils (Bld) [#/Vol] 3.2 10*3/uL Normal 1.8-7.7 [facility] Comment on above: Performed By: #### H S TROP #### [address] Neutrophils/100 WBC (Bld) 72.7 % Normal . [facility] Comment on above: Performed By: #### H S TROP #### [address] NRBC% 0.1 /100{WBC} Normal 0-0.5 [facility] Comment on above: Performed By: #### H S TROP #### [address] Platelet Estimate Normal Normal Normal [facility] Comment on above: Performed By: #### H S TROP #### [address] Platelet mean volume (Bld) [Entitic vol] 8.0 fL Normal 6.6-10.1 [facility] Comment on above: Performed By: #### H S TROP #### [address] Platelet Morphology Normal Normal Normal [facility] Comment on above: Performed By: #### H S TROP #### [place] [address] [place] Platelets (Bld) [#/Vol] 177 10*3/uL Normal 150-450 [facility] Comment on above: Performed By: #### H S TROP #### [address] [place] [address] [place] RBC (Bld) [#/Vol] 4.92 10*6/uL Normal 3.90-5.60 [facility] Comment on above: Performed By: #### H S TROP #### [facility] [address] RBC morphology finding Nom (Bld) Normal Normal Normal [facility] Comment on above: Performed By: #### H S TROP #### [facility] [address] WBC (Bld) [#/Vol] 4.4 10*3/uL Normal 4.1-10.5 [facility] Comment on above: Performed By: #### H S TROP #### [facility] [address] Serum or plasma albumin/glob ulin mass ratioOrdered By: Romel Davis on 01-14-2025 Albumin/Globulin [Mass ratio] Serum or plasma albumin/globulin mass ratio [facility] Serum or plasma anion gap de terminationOrdered By: Romel Davis on 01-14-2025 Anion gap [Moles/Vol] Serum or plasma an ion gap determination 6.0-15.0 [facility] Serum or plasma complement C 3 measurement (mass/volume)Ordered By: Romel Davis on 01-14-2025 Complement C3 [Mass/Vol] Serum or plasma complement C3 measurement (mass/volume) 82-167 [facility] Comment on above: Performed at: [address] [id number] Director: Richy Ardon PhD, Phone: [phone] Serum or plasma complement C 4 measurement (mass/volume)Ordered By: Romel Davis on 01-14-2025 Complement C4 [Mass/Vol] Serum or plasma complement C4 measurement (mass/volume) 12-38 [facility] Sodium [Moles/volume] in Ser um or PlasmaOrdered By: Romel Davis on 01-14-2025 Sodium [Moles/Vol] Sodium [Moles/volume ] in Serum or Plasma 136-145 [facility] Specific gravity Test strip (U) [Rel density]Ordered By: Romel Davis on 01-14-2025 Specific gravity (U) [Rel density] Specific gravity of Urine by Test strip 1.001-1.03 0 [facility] Total hemolytic complement C H50 assayOrdered By: Romel Davis on 01-14-2025 Total Complement (CH50) 57 U/mL >41 [facility] Comment on above: Age Male Female 3 [...] to determine out of range values.Performed at: [facility] [id number] Director: Richy Ardon PhD, Phone: [phone] Urea nitrogen [Mass/volume] in Serum or PlasmaOrdered By: Romel Davis on 01-14-2025 Urea nitrogen [Mass/Vol] Urea nitrogen [Mass/volume] in Serum or Plasma 06-14 [facility] Urobilinogen Test strip (U) [Mass/Vol]Ordered By: Romel Davis on 01-14-2025 Urobilinogen (U) [Mass/Vol] Urobilinogen [Mass/volume] in Urine by Test strip Normal [facility] WBC Auto (Bld) [#/Vol]Ordere d By: Romel Davis on 01-14-2025 WBC (Bld) [#/Vol] Leukocytes [#/volume ] in Blood by Automated count 4.1-10.5 [facility] pH Test strip (U)Ordered By: Romel Davis on 01-14-2025 pH (U) pH of Urine by Test strip 5.0-9.[address] [facility] [address] head/brain wo conon 01-12 CT head/brain wo con [facility] [place] [place] [address] CT Scan Report Signed Patient: Valentin Torre MR#: [id number] [birth year] : 1955 Acct:[id number] Age/Sex: 69 / M ADM Date: 01/12/25 Loc: ER Room: Type: REG ER Attending Dr: Copies to: Matthew Harrell [...] ACUTE INTRACRANIAL ABNORMALITY. CHRONIC SMALL VESSEL CHANGES [id number] PARANASAL SINUS DISEASE Impression dictated by: Alo Mayer M.D.01/12/2025 2:28 PM Dictation Location: [place] [address] Transcribed By: [facility] 01/12/25 1428 Dictated By: Alo Mayer MD 01/12/251425 Signed By: 01/12/25 142 Normal [facility] CT lumbar spine wo conon CT lumbar spine wo con [facility] [place] [address] CT Scan Report Signed Patient: Valentin Torre MR#: [id number] [birth year] : 1955 Acct:[id number] Age/Sex: 69 / M ADM Date: 01/12/25 Loc: ER Room: Type: [facility] ER Attending Dr: Copies to: Matthew Harrell [...] MRI 01/10/2024 FINDINGS: L5-S1: Mild disc disease. [id number] neural from narrowing. Advanced facet arthropathy. Laminectomy. L4-5 Postsurgical changes L4-5 status post the decompressive laminectomy and posterior fusion and discectomy. Stable 5 mm of anterolisthesis. [id number] foraminal narrowing at this level. L3-4 Moderate [...] Alo Mayer M.D.01/12/2025 2:53 PM Dictation Location: [place] [address] Transcribed By: [facility] 01/12/25 1453 Dictated By: Alo Mayer MD 01/12/25 1438 Signed By: 01/12/25 1453 Normal [facility] X-ray reportOrdered By: Jorge Mayer on 01-12-2025 Study report [facility] [place] [address] XRay Report Signed Patient: Valentin Torre MR#: [id number] : 1955 Acct:[id number] Age/Sex: 69 / M ADM Date: 5 Loc: ER Room: Type: [facility] ER Attending Dr: Copies to: Matthew Harrell [...] Alo Mayer M.D.01/12/2025 3:08 PM Dictation Location: [facility] Transcribed By: [facility] 01/12/25 1508 Dictated By: Alo Mayer MD 01/12/25 1507 Signed By: 01/12/25 [facility]8 [facility] Work Phone: XR knee RT 2Von 01-12-2025 XR knee RT 2V [facility] [place] [address] XRay Report Signed Patient: Valentin Torre MR#: [id number] [birth year] : 1955 Acct:[id number] Age/Sex: 69 / M ADM Date: 01/12/25 Loc: ER Room: Type: [facility] ER Attending Dr: Copies to: Matthew Harrell [...] 3:08 PM Dictation Location: [facility]29 Transcribed By: [facility] 01/12/25 1508 Dictated By: Alo Mayer MD 01/12/25 1507 Signed By: 01/12/25 1508 Normal [facility] Alanine aminotransferase [En zymatic activity/volume] in Serum or PlasmaOrdered By: Sascha Sutton on 12-07-2024 ALT [Catalytic activity/Vol] Alanine aminotransferase [Enzymatic activity/volume] in Serum or Plasma 7-52 [facility] Albumin [Mass/volume] in Ser um or Plasma by Bromocresol green (BCG) dye binding methoOrdered By: Sascha Sutton on 12-07-2024 Albumin BCG dye [Mass/Vol] Albumin [Mass/volume] in Serum or Plasma by Bromocresol green (BCG) dye binding metho 3.5-5.7 [facility] Alkaline phosphatase [Enzyma tic activity/volume] in Serum or PlasmaOrdered By: Sascha Sutton 12-07-2024 ALP [Catalytic activity/Vol] Alkaline phosphatase [Enzymatic activity/volume] in Serum or Plasma 34-104 [facility] Aspartate aminotransferase [ Enzymatic activity/volume] in Serum or PlasmaOrdered By: Sascha Sutton 12-07-2024 AST [Catalytic activity/Vol] Aspartate aminotransferase [Enzymatic activity/volume] in Serum or Plasma 13-39 [facility] Bilirubin.total [Mass/volume ] in Serum or PlasmaOrdered By: Sascha Sutton 12-07-2024 Bilirubin [Mass/Vol] Bilirubin.total [Mass/volume] in Serum or Plasma 0.3-1.0 [facility] Calcium [Mass/volume] in Ser um or PlasmaOrdered By: Sascha Sutton 12-07-2024 Calcium [Mass/Vol] Calcium [Mass/volume ] in Serum or Plasma 8.6-10.3 [facility] Carbon dioxide, total [Moles /volume] in Serum or PlasmaOrdered By: Sascha Sutton 12-07-2024 CO2 [Moles/Vol] Carbon dioxide, tota l [Moles/volume] in Serum or Plasma 21.0-31.0 [facility] Chloride [Moles/volume] in S ace or PlasmaOrdered By: Sascha Sutton 12-07-2024 Chloride [Moles/Vol] Chloride [Moles/vol ume] in Serum or Plasma High 98-107 [facility] Cholesterol [Mass/volume] in Serum or PlasmaOrdered By: Sascha Sutton on 12-07-2024 Cholesterol [Mass/Vol] Cholesterol [Mass /volume] in Serum or Plasma Low 140-200 [facility] Comment on above: Chol less than 200 m g/dl low riskChol 201-239 mg/dl borderline riskChol 240 mg/dl and greater high risk Cholesterol in HDL [Mass/vol ume] in Serum or PlasmaOrdered By: Sacsha Sutton on 12-07-2024 Cholesterol in HDL [Mass/Vol] Serum or plasma high density lipoprotein (HDL) cholesterol measurement 23-92 [facility] Comment on above: HDL CHOL ATP-III CLA SSIFICATION Cardiovascular RiskHDL > or equal to 60 mg/dL LOWHDL < 40 mg/dL HIGH Cholesterol in LDL Calc [Mas s/Vol]Ordered By: Sascha Sutton on 12-07-2024 Cholesterol in LDL [Mass/Vol] Cholesterol in LDL [Mass/volume] in Serum or Plasma by calculation 0-100 [facility] Comment on above: LDL ATP III CLASSIFI CATIONLDL less than 100 mg/dL OptimalLDL 100-129 mg/dL Near or above optimalLDL 130-159 mg/dL Borderline highLDL 160-189 mg/dL HighLDL greater than 189 mg/dL Very high Cholesterol in VLDL Calc [Ma ss/Vol]Ordered By: Sascha Sutton on 12-07-2024 Cholesterol in VLDL [Mass/Vol] Cholesterol in VLDL [Mass/volume] in Serum or Plasma by calculation [facility] Comprehensive Metabolic Pane vivek 12-07-2024 Albumin [Mass/Vol] 4.1 g/dL Normal 3.5-5.7 [facility] Comment on above: Performed By: #### E SR, DIFF CBC, ADDONUAPLUS, CMP #### [address] #### CH50, C4, C3 #### [facility] , Albumin/Globulin [Mass ratio] 1.8 {ratio} Normal [facility] Comment on above: Performed By: #### E SR, DIFF CBC, ADDONUAPLUS, CMP #### [facility] [address] [place] [address] [place] #### CH50, C4, C3 #### [facility] , ALP [Catalytic activity/Vol] 82 U/L Normal 34-104 [facility] Comment on above: Performed By: #### E SR, DIFF CBC, ADDONUAPLUS, CMP #### [facility] [address] [place] [address] #### CH50, C4, C3 #### [facility] , ALT [Catalytic activity/Vol] 28 U/L Normal 7-52 [facility] Comment on above: Performed By: #### E SR, DIFF CBC, ADDONUAPLUS, CMP #### [address] #### CH50, C4, C3 #### [facility] , Anion gap [Moles/Vol] 10.2 mmol/L Normal 6.0-15.0 [facility] Comment on above: Performed By: #### E SR, DIFF CBC, ADDONUAPLUS, CMP #### [facility] [address] [place] [address] #### CH50, C4, C3 #### [facility] , AST [Catalytic activity/Vol] 17 U/L Normal 13-39 [facility] Comment on above: Performed By: #### E SR, DIFF CBC, ADDONUAPLUS, CMP #### [place] [address] [place] #### CH50, C4, C3 #### [facility] , Bilirubin [Mass/Vol] 0.6 mg/dL Normal 0.3-1.0 [facility] Comment on above: Performed By: #### E SR, DIFF CBC, ADDONUAPLUS, CMP #### [place] [address] [place] #### CH50, C4, C3 #### [facility] , Calcium [Mass/Vol] 8.9 mg/dL Normal 8.6-10.3 [facility] Comment on above: Performed By: #### E SR, DIFF CBC, ADDONUAPLUS, CMP #### [place] [address] [place] #### CH50, C4, C3 #### [facility] , Chloride [Moles/Vol] 110 mmol/L High 98-107 [facility] Comment on above: Performed By: #### E SR, DIFF CBC, ADDONUAPLUS, CMP #### [place] [address] [place] #### CH50, C4, C3 #### [facility] , CO2 [Moles/Vol] 22.8 mmol/L Normal 21.0-31.0 [facility] Comment on above: Performed By: #### E SR, DIFF CBC, ADDONUAPLUS, CMP #### [place] [address] [place] #### CH50, C4, C3 #### [facility] , Creatinine [Mass/Vol] 0.85 mg/dL Normal 0.70-1.30 [facility] Comment on above: Performed By: #### E SR, DIFF CBC, ADDONUAPLUS, CMP #### [place] [address] [place] #### CH50, C4, C3 #### [facility] , GFR/1.73 sq M.predicted MDRD (S/P/Bld) [Vol rate/Area] mL/min/{1.73_m2} Normal [facility] Comment on above: Performed By: #### E SR, DIFF CBC, ADDONUAPLUS, CMP #### [place] [address] [place] #### CH50, C4, C3 #### [facility] , Globulin (S) [Mass/Vol] 2.3 g/dL Normal [facility] Comment on above: Performed By: #### E SR, DIFF CBC, ADDONUAPLUS, CMP #### [place] [address] [place] #### CH50, C4, C3 #### [facility] , Glucose [Mass/Vol] 97 mg/dL Normal 70-100 [facility] Comment on above: Result Comment: [place] Glucose Reference Range is dependent on time and content of last meal. Glucose of more than 200 mg/dL in a nonstressed, ambulatory subject supports the diagnosis of Diabetes Mellitus. ADA recommended reference range Performed By: #### E SR, DIFF CBC, ADDONUAPLUS, CMP #### [place] [address] [place] #### CH50, C4, C3 #### [facility] , Potassium [Moles/Vol] 4.0 mmol/L Normal 3.5-5.1 [facility] Comment on above: Performed By: #### E SR, DIFF CBC, ADDONUAPLUS, CMP #### [place] [address] [place] #### CH50, C4, C3 #### [facility] , Protein [Mass/Vol] 6.4 g/dL Normal 6.4-8.9 [facility] Comment on above: Performed By: #### E SR, DIFF CBC, ADDONUAPLUS, CMP #### [place] [address] [place] #### CH50, C4, C3 #### [facility] , Sodium [Moles/Vol] 139 mmol/L Normal 136-145 [facility] Comment on above: Performed By: #### E SR, DIFF CBC, ADDONUAPLUS, CMP #### [place] [address] [place] #### CH50, C4, C3 #### [facility] , Urea nitrogen [Mass/Vol] 29 mg/dL High 7-25 [facility] Comment on above: Performed By: #### E SR, DIFF CBC, ADDONUAPLUS, CMP #### [place] [address] [place] #### CH50, C4, C3 #### [facility] , Creatinine [Mass/volume] in Serum or PlasmaOrdered By: Sascha uStton on 12-07-2024 Creatinine [Mass/Vol] Creatinine [Mass/v olume] in Serum or Plasma 0.70-1.30 [facility] Globulin Calc (S) [Mass/Vol] Ordered By: Sascha Sutton on 12-07-2024 Globulin (S) [Mass/Vol] Serum globulin measurement by calculation (mass/volume) [facility] Glucose [Mass/volume] in Ser um or PlasmaOrdered By: Saschaabelardo Sutton on 12-07-2024 Glucose [Mass/Vol] Glucose [Mass/volume ] in Serum or Plasma 70-100 [facility] Comment on above: ADA recommended refe rence rangeRandom Glucose Reference Range is dependent on time and content of last meal. Glucose of more than 200 mg/dL in a nonstressed, ambulatory subject supports the diagnosis of Diabetes Mellitus. Lipid Panelon 12-07-2024 Cholesterol [Mass/Vol] 125 mg/dL Low 140-200 [facility] Comment on above: Result Comment: Chol less than 200 mg/dl low risk Chol 201-239 mg/dl borderline risk Chol 240 mg/dl and greater high risk Performed By: #### E SR, DIFF CBC, ADDONUAPLUS, CMP #### [facility] [address] [place] [address] [place] #### CH50, C4, C3 #### [facility] , Cholesterol in HDL [Mass/Vol] 53 mg/dL Normal 23-92 [facility] Comment on above: Result Comment: HDL CHOL ATP-III CLASSIFICATION Cardiovascular Risk HDL > or equal to 60 mg/dL LOW HDL < 40 mg/dL HIGH Performed By: #### E SR, DIFF CBC, ADDONUAPLUS, CMP #### [facility] [address] [place] [address] [place] #### CH50, C4, C3 #### [facility] , Cholesterol.total/Chol esterol in HDL [Mass ratio] 2.4 {ratio} Normal <5.0 [facility] Comment on above: Result Comment: PERF ORMED BY: [place] [address] PATHOLOGIST [employer]OR MEJIA M.D. Performed By: #### E SR, DIFF CBC, ADDONUAPLUS, CMP #### [place] [address] [place] #### CH50, C4, C3 #### [facility] , LDL Cholesterol,Calculated 61 mg/dL Normal 0-100 [facility] Comment on above: Result Comment: LDL ATP III CLASSIFICATION LDL less than 100 mg/dL Optimal LDL 100-129 mg/dL Near or above optimal LDL 130-159 mg/dL Borderline high LDL 160-189 mg/dL High LDL greater than 189 mg/dL Very high Performed By: #### E SR, DIFF CBC, ADDONUAPLUS, CMP #### [place] [address] [place] #### CH50, C4, C3 #### [facility] , Triglyceride w/Reflex 54 mg/dL Normal 0-149 [facility] Comment on above: Result Comment: TRIG ATP III CLASSIFICATION TRIG less than 150 mg/dL Normal TRIG 150-199 mg/dL Borderline high TRIG 200-500 mg/dL High TRIG greater than 500 mg/dL Very high Standard traceable to the Center for Disease Conrtrol and Prevention (CDC) test method. Performed By: #### E SR, DIFF CBC, ADDONUAPLUS, CMP #### [place] [address] [place] #### CH50, C4, C3 #### [facility] , VLDL CHOLESTEROL 10 mg/dL Normal [facility] Comment on above: Performed By: #### E SR, DIFF CBC, ADDONUAPLUS, CMP #### [place] [address] [place] #### CH50, C4, C3 #### [facility] , No Panel InformationOrdered By: Sascha Sutton on 12-07-2024 Estimated GFR (CKD-EPI) > 60.0 mL/Min [facility] Creatinine Clearance (Chem N/A [facility] PSA Screen (Yearly Only)on 0 12-07-2024 PSA Screen (Yearly Only) 2.510 ng/mL Normal 0.000-4.00 0 [facility] Comment on above: Order [...] manufacturers or methods may not be comparable. [facility] x ray tech and method: [employer] DXI, CHEMILUMINESCENT IMMUNOASSAY. PERFORMED BY: [place] [address] PATHOLOGIST MEAT WASHER HECTOR MEJIA M.D. Performed By: #### E SR, DIFF CBC, ADDONUAPLUS, CMP #### [address] #### CH50, C4, C3 #### [facility] , Potassium [Moles/volume] in Serum or PlasmaOrdered By: Sascha Sutton on 12-07-2024 Potassium [Moles/Vol] Potassium [Moles/v olume] in Serum or Plasma 3.5-5.1 [facility] Prostate specific Ag [Mass/v olume] in Serum or PlasmaOrdered By: Sascha Sutton on 12-07-2024 Prostate specific Ag [Mass/Vol] Prostate specific Ag [Mass/volume] in Serum or Plasma 0.000-4.00 0 [facility] Comment on above: Serial tumor marker results determined by assays using different manufacturers or methods may not be comparable.[facility] x ray tech and method:[employer] DXI, CHEMILUMINESCENT IMMUNOASSAY. Protein [Mass/volume] in Ser um or PlasmaOrdered By: Sascha Sutton on 12-07-2024 Protein [Mass/Vol] Protein [Mass/volume ] in Serum or Plasma 6.4-8.9 [facility] Serum or plasma albumin/glob ulin mass ratioOrdered By: Sascha Sutton on 12-07-2024 Albumin/Globulin [Mass ratio] Serum or plasma albumin/globulin mass ratio [facility] Serum or plasma anion gap de terminationOrdered By: Sascha Sutton on 12-07-2024 Anion gap [Moles/Vol] Serum or plasma an ion gap determination 6.0-15.0 [facility] Serum or plasma total choles terol/high density lipoprotein (HDL) cholesterol mass ratOrdered By: Sascha Sutton on 12-07-2024 Cholesterol.total/Chol esterol in HDL [Mass ratio] Serum or plasma total cholesterol/high density lipoprotein (HDL) cholesterol mass rat <5.0 [facility] Sodium [Moles/volume] in Ser um or PlasmaOrdered By: Sascha Sutton on 12-07-2024 Sodium [Moles/Vol] Sodium [Moles/volume ] in Serum or Plasma 136-145 [facility] Triglyceride [Mass/volume] i n Serum or PlasmaOrdered By: Sascha Sutton on 12-07-2024 Triglyceride [Mass/Vol] Triglyceride [Mass/volume] in Serum or Plasma 0-149 [facility] Comment on above: TRIG ATP III CLASSIF ICATIONTRIG less than 150 mg/dL NormalTRIG 150-199 mg/dL Borderline highTRIG 200-500 mg/dL High TRIG greater than 500 mg/dL Very highStandard traceable to the Center for Disease Conrtrol and Prevention (CDC) test method. Urea nitrogen [Mass/volume] in Serum or PlasmaOrdered By: Sascha Sutton on 12-07-2024 Urea nitrogen [Mass/Vol] Urea nitrogen [Mass/volume] in Serum or Plasma High 7-25 [facility] MR hip RT wo conon 4 MR hip RT wo con [facility] [place] [address] MRI Report Signed Patient: Valentin Torre MR#: [id number] 31 : 1955 Acct:[id number] Age/Sex: 69 / M ADM Date: 11/05/24 Loc: [facility] Room: Type: [facility] Attending Dr: Jaime Murcia II, MD [...] Patel Jr., D.O.11/05/2024 12:53 PM Dictation Location: [place] [address] Transcribed By: [facility] 11/05/24 1253 Dictated By: Marcial Patel Jr, DO 11/05/24 1248 Signed By: 11/05/24 1253 Normal [facility] Alanine aminotransferase [En zymatic activity/volume] in Serum or PlasmaOrdered By: Romel Davis on 10-10-2024 ALT [Catalytic activity/Vol] Alanine aminotransferase [Enzymatic activity/volume] in Serum or Plasma [facility] Albumin [Mass/volume] in Ser um or Plasma by Bromocresol green (BCG) dye binding methoOrdered By: Romel Davis on 10-10-2024 Albumin BCG dye [Mass/Vol] Albumin [Mass/volume] in Serum or Plasma by Bromocresol green (BCG) dye binding metho 3.5-5.7 [facility] Alkaline phosphatase [Enzyma tic activity/volume] in Serum or PlasmaOrdered By: Romel Davis on 10-10-2024 ALP [Catalytic activity/Vol] Alkaline phosphatase [Enzymatic activity/volume] in Serum or Plasma 34-104 [facility] Appearance of UrineOrdered B y: Romel Davis on 10-10-2024 Appearance (U) Urine appearance Clear [facility] Aspartate aminotransferase [ Enzymatic activity/volume] in Serum or PlasmaOrdered By: Romel Davis on 10-10-2024 AST [Catalytic activity/Vol] Aspartate aminotransferase [Enzymatic activity/volume] in Serum or Plasma 13-39 [facility] Bacteria [Presence] in Urine by AutomatedOrdered By: Romel Davis on 10-10-2024 Bacteria Auto Ql (U) Bacteria [Presence] in Urine by Automated None Seen [facility] Basophils Auto (Bld) [#/Vol] Ordered By: Romel Davis on 10-10-2024 Basophils (Bld) [#/Vol] Automated basophil count 0.0-0.2 [facility] Basophils/100 WBC Auto (Bld) Ordered By: Romel Davis on 10-10-2024 Basophils/100 WBC (Bld) Automated basophil % . [facility] Bilirubin Test strip Ql (U)O rdered By: Romel Davis on 10-10-2024 Bilirubin Ql (U) Bilirubin.total [Pre sence] in Urine by Test strip Negative [facility] Bilirubin.total [Mass/volume ] in Serum or PlasmaOrdered By: Romel Davis on 10-10-2024 Bilirubin [Mass/Vol] Bilirubin.total [Mass/volume] in Serum or Plasma 0.3-1.0 [facility] Calcium [Mass/volume] in Ser um or PlasmaOrdered By: Romel Davis on 10-10-2024 Calcium [Mass/Vol] Calcium [Mass/volume ] in Serum or Plasma 8.6-10.3 [facility] Carbon dioxide, total [Moles /volume] in Serum or PlasmaOrdered By: Romel Davis on 10-10-2024 CO2 [Moles/Vol] Carbon dioxide, tota l [Moles/volume] in Serum or Plasma 21.0-31.0 [facility] Chloride [Moles/volume] in S ace or PlasmaOrdered By: Romel Ryan on 10-10-2024 Chloride [Moles/Vol] Chloride [Moles/vol ume] in Serum or Plasma 98-107 [facility] Color Auto (U)Ordered By: Bridgett daicourtney Ryan on 10-10-2024 Color (U) Color of Urine by Auto Yellow Fi [facility] Complement C3on 10-10-2024 Complement C3 130 mg/dL Normal 82-167 [facility] Comment on above: Result Comment: Perf ormed at: [employer] [id number] [employer]: Richy Ardon PhD, Phone: [phone] Performed By: #### E SR, DIFF CBC, ADDONUAPLUS, CMP #### [address] #### CH50, C4, C3 #### [facility] , Complement C4on 10-10-2024 Complement C4 13 mg/dL Normal 12-38 [facility] Comment on above: Result Comment: PERF ORMED BY: [place] [address] PATHOLOGIST ME[employer] H[employer] MEJIA M.D. Performed By: #### E SR, DIFF CBC, ADDONUAPLUS, CMP #### [address] #### CH50, C4, C3 #### [facility] , Complement Total (CH50)on Complement Total (CH50) 59 Normal >41 [facility] Comment on above: Result [...] determine out of range values. Performed at: [employer] [address] [employer] [id number] [employer]: Richy Ardon PhD, Phone: [phone] PERFORMED BY: [place] [address] PATHOLOGIST ME[employer] WASH[employer] H[employer] MEJIA M.D. Performed By: #### E SR, DIFF CBC, ADDONUAPLUS, CMP #### [place] [address] [place] #### CH50, C4, C3 #### [facility] , Complete Blood Count Auto Di ffon 10-10-2024 Basophils (Bld) [#/Vol] 0.1 10*3/uL Normal 0.0-0.2 [facility] Comment on above: Performed By: #### E SR, DIFF CBC, ADDONUAPLUS, CMP #### [place] [address] [place] #### CH50, C4, C3 #### [facility] , Basophils/100 WBC (Bld) 0.9 % Normal . [facility] Comment on above: Performed By: #### E SR, DIFF CBC, ADDONUAPLUS, CMP #### [place] [address] [place] #### CH50, C4, C3 #### [facility] , Eosinophils (Bld) [#/Vol] 0.1 10*3/uL Normal 0.0-0.45 [facility] Comment on above: Performed By: #### E SR, DIFF CBC, ADDONUAPLUS, CMP #### [place] [address] [place] #### CH50, C4, C3 #### [facility] , Eosinophils/100 WBC (Bld) 1.5 % Normal . [facility] Comment on above: Performed By: #### E SR, DIFF CBC, ADDONUAPLUS, CMP #### [place] [address] [place] #### CH50, C4, C3 #### [facility] , Erythrocyte distribution width (RBC) [Ratio] 14.5 % Normal 12.0-14.8 [facility] Comment on above: Performed By: #### E SR, DIFF CBC, ADDONUAPLUS, CMP #### [place] [address] [place] #### CH50, C4, C3 #### [facility] , Hematocrit (Bld) [Volume fraction] 44.8 % Normal 38.8-50.0 [facility] Comment on above: Performed By: #### E SR, DIFF CBC, ADDONUAPLUS, CMP #### [place] [address] [place] #### CH50, C4, C3 #### [facility] , Hemoglobin (Bld) [Mass/Vol] 15.4 g/dL Normal 13.0-17.0 [facility] Comment on above: Performed By: #### E SR, DIFF CBC, ADDONUAPLUS, CMP #### [address] #### CH50, C4, C3 #### [facility] , Lymphocytes (Bld) [#/Vol] 0.9 10*3/uL Low 1.00-4.8 [facility] Comment on above: Performed By: #### E SR, DIFF CBC, ADDONUAPLUS, CMP #### [place] [address] [place] #### CH50, C4, C3 #### [facility] , Lymphocytes/100 WBC (Bld) 12.7 % Normal . [facility] Comment on above: Performed By: #### E SR, DIFF CBC, ADDONUAPLUS, CMP #### [place] [address] [place] #### CH50, C4, C3 #### [facility] , MCH (RBC) [Entitic mass] 31.2 pg Normal 27.5-35.2 [facility] Comment on above: Performed By: #### E SR, DIFF CBC, ADDONUAPLUS, CMP #### [place] [address] [place] #### CH50, C4, C3 #### [facility] , MCV (RBC) [Entitic vol] 90.6 fL Normal 83.5-101 [facility] Comment on above: Performed By: #### E SR, DIFF CBC, ADDONUAPLUS, CMP #### [place] [address] [place] #### CH50, C4, C3 #### [facility] , Mean Corpuscular HGB Conc 34.4 g/dL Normal 32.5-35.6 [facility] Comment on above: Performed By: #### E SR, DIFF CBC, ADDONUAPLUS, CMP #### [place] [address] [place] #### CH50, C4, C3 #### [facility] , Monocytes (Bld) [#/Vol] 0.9 10*3/uL High 0.0-0.8 [facility] Comment on above: Performed By: #### E SR, DIFF CBC, ADDONUAPLUS, CMP #### [place] [address] [place] #### CH50, C4, C3 #### [facility] , Monocytes/100 WBC (Bld) 12.1 % Normal . [facility] Comment on above: Performed By: #### E SR, DIFF CBC, ADDONUAPLUS, CMP #### [place] [address] [place] #### CH50, C4, C3 #### [facility] , Neutrophils (Bld) [#/Vol] 5.2 10*3/uL Normal 1.8-7.7 [facility] Comment on above: Performed By: #### E SR, DIFF CBC, ADDONUAPLUS, CMP #### [place] [address] [place] #### CH50, C4, C3 #### [facility] , Neutrophils/100 WBC (Bld) 72.8 % Normal . [facility] Comment on above: Performed By: #### E SR, DIFF CBC, ADDONUAPLUS, CMP #### [facility] [address] [place] [address] [place] #### CH50, C4, C3 #### [facility] , NRBC% 0.2 /100{WBC} Normal 0-0.5 [facility] Comment on above: Performed By: #### E SR, DIFF CBC, ADDONUAPLUS, CMP #### [place] [address] [place] #### CH50, C4, C3 #### [facility] , Platelet mean volume (Bld) [Entitic vol] 8.0 fL Normal 6.6-10.1 [facility] Comment on above: Performed By: #### E SR, DIFF CBC, ADDONUAPLUS, CMP #### [place] [address] [place] #### CH50, C4, C3 #### [facility] , Platelets (Bld) [#/Vol] 165 10*3/uL Normal 150-450 [facility] Comment on above: Performed By: #### E SR, DIFF CBC, ADDONUAPLUS, CMP #### [place] [address] [place] #### CH50, C4, C3 #### [facility] , RBC (Bld) [#/Vol] 4.94 10*6/uL Normal 3.90-5.60 [facility] Comment on above: Performed By: #### E SR, DIFF CBC, ADDONUAPLUS, CMP #### [place] [address] [place] #### CH50, C4, C3 #### [facility] , WBC (Bld) [#/Vol] 7.2 10*3/uL Normal 4.1-10.5 [facility] Comment on above: Performed By: #### E SR, DIFF CBC, ADDONUAPLUS, CMP #### [place] [address] [place] #### CH50, C4, C3 #### [facility] , Comprehensive Metabolic Pane vivek 10-10-2024 Albumin [Mass/Vol] 4.0 g/dL Normal 3.5-5.7 [facility] Comment on above: Performed By: #### E SR, DIFF CBC, ADDONUAPLUS, CMP #### [address] #### CH50, C4, C3 #### [facility] , Albumin/Globulin [Mass ratio] 1.9 {ratio} Normal [facility] Comment on above: Performed By: #### E SR, DIFF CBC, ADDONUAPLUS, CMP #### [address] #### CH50, C4, C3 #### [facility] , ALP [Catalytic activity/Vol] 85 U/L Normal 34-104 [facility] Comment on above: Result Comment: PERF ORMED BY: [place] [address] PATHOLOGIST [employer] H[employer] MEJIA M.D. Performed By: #### E SR, DIFF CBC, ADDONUAPLUS, CMP #### [place] [address] [place] #### CH50, C4, C3 #### [facility] , ALT [Catalytic activity/Vol] 27 U/L Normal 7-52 [facility] Comment on above: Performed By: #### E SR, DIFF CBC, ADDONUAPLUS, CMP #### [address] [place] [address] [place] #### CH50, C4, C3 #### [facility] , Anion gap [Moles/Vol] 11.3 mmol/L Normal 6.0-15.0 [facility] Comment on above: Performed By: #### E SR, DIFF CBC, ADDONUAPLUS, CMP #### [place] [address] [place] #### CH50, C4, C3 #### [facility] , AST [Catalytic activity/Vol] 16 U/L Normal 13-39 [facility] Comment on above: Performed By: #### E SR, DIFF CBC, ADDONUAPLUS, CMP #### [address] #### CH50, C4, C3 #### [facility] , Bilirubin [Mass/Vol] 0.5 mg/dL Normal 0.3-1.0 [facility] Comment on above: Performed By: #### E SR, DIFF CBC, ADDONUAPLUS, CMP #### [place] [address] [place] #### CH50, C4, C3 #### [facility] , Calcium [Mass/Vol] 8.9 mg/dL Normal 8.6-10.3 [facility] Comment on above: Performed By: #### E SR, DIFF CBC, ADDONUAPLUS, CMP #### [facility] [address] [place] [address] [place] #### CH50, C4, C3 #### [facility] , Chloride [Moles/Vol] 107 mmol/L Normal 98-107 [facility] Comment on above: Performed By: #### E SR, DIFF CBC, ADDONUAPLUS, CMP #### [place] [address] [place] #### CH50, C4, C3 #### [facility] , CO2 [Moles/Vol] 24.0 mmol/L Normal 21.0-31.0 [facility] Comment on above: Performed By: #### E SR, DIFF CBC, ADDONUAPLUS, CMP #### [place] [address] [place] #### CH50, C4, C3 #### [facility] , Creatinine [Mass/Vol] 0.95 mg/dL Normal 0.70-1.30 [facility] Comment on above: Performed By: #### E SR, DIFF CBC, ADDONUAPLUS, CMP #### [place] [address] [place] #### CH50, C4, C3 #### [facility] , GFR/1.73 sq M.predicted MDRD (S/P/Bld) [Vol rate/Area] mL/min/{1.73_m2} Normal [facility] Comment on above: Performed By: #### E SR, DIFF CBC, ADDONUAPLUS, CMP #### [place] [address] [place] #### CH50, C4, C3 #### [facility] , Globulin (S) [Mass/Vol] 2.1 g/dL Normal [facility] Comment on above: Performed By: #### E SR, DIFF CBC, ADDONUAPLUS, CMP #### [place] [address] [place] #### CH50, C4, C3 #### [facility] , Glucose [Mass/Vol] 96 mg/dL Normal 70-100 [facility] Comment on above: Result Comment: [place] Glucose Reference Range is dependent on time and content of last meal. Glucose of more than 200 mg/dL in a nonstressed, ambulatory subject supports the diagnosis of Diabetes Mellitus. ADA recommended reference range Performed By: #### E SR, DIFF CBC, ADDONUAPLUS, CMP #### [place] [address] [place] #### CH50, C4, C3 #### [facility] , Potassium [Moles/Vol] 4.3 mmol/L Normal 3.5-5.1 [facility] Comment on above: Performed By: #### E SR, DIFF CBC, ADDONUAPLUS, CMP #### [place] [address] [place] #### CH50, C4, C3 #### [facility] , Protein [Mass/Vol] 6.1 g/dL Low 6.4-8.9 [facility] Comment on above: Performed By: #### E SR, DIFF CBC, ADDONUAPLUS, CMP #### [place] [address] [place] #### CH50, C4, C3 #### [facility] , Sodium [Moles/Vol] 138 mmol/L Normal 136-145 [facility] Comment on above: Performed By: #### E SR, DIFF CBC, ADDONUAPLUS, CMP #### [place] [address] [place] #### CH50, C4, C3 #### [facility] , Urea nitrogen [Mass/Vol] 28 mg/dL High 7-25 [facility] Comment on above: Performed By: #### E SR, DIFF CBC, ADDONUAPLUS, CMP #### [place] [address] [place] #### CH50, C4, C3 #### [facility] , Creatinine [Mass/volume] in Serum or PlasmaOrdered By: Romel Davis on 10-10-2024 Creatinine [Mass/Vol] Creatinine [Mass/v olume] in Serum or Plasma 0.70-1.30 [facility] Dipstick and Microscopicon 1 12-10-2023 Appearance (U) Clear Normal Clear [facility] Comment on above: Order Comment: Name Collection Type:: Clean-Voided Midstream Performed By: #### E SR, DIFF CBC, ADDONUAPLUS, CMP #### [address] #### CH50, C4, C3 #### [facility] , Bacteria,Urine None Seen Normal None Seen [facility] Comment on above: Order Comment: Name Collection Type:: Clean-Voided Midstream Performed By: #### E SR, DIFF CBC, ADDONUAPLUS, CMP #### [address] #### CH50, C4, C3 #### [facility] , Bilirubin,Urine Negative Normal Negative [facility] Comment on above: Order Comment: Name Collection Type:: Clean-Voided Midstream Performed By: #### E SR, DIFF CBC, ADDONUAPLUS, CMP #### [address] #### CH50, C4, C3 #### [facility] , Color (U) Yellow Normal Yellow [facility] Comment on above: Order Comment: Name Collection Type:: Clean-Voided Midstream Performed By: #### E SR, DIFF CBC, ADDONUAPLUS, CMP #### [address] #### CH50, C4, C3 #### [facility] , Glucose Ql (U) Normal Normal Normal [facility] Comment on above: Order Comment: Name Collection Type:: Clean-Voided Midstream Performed By: #### E SR, DIFF CBC, ADDONUAPLUS, CMP #### [address] #### CH50, C4, C3 #### [facility] , Hyaline Casts,Urine None Normal 0-8 [facility] Comment on above: Order Comment: Name Collection Type:: Clean-Voided Midstream Performed By: #### E SR, DIFF CBC, ADDONUAPLUS, CMP #### [place] [address] [place] #### CH50, C4, C3 #### [facility] , Ketones Ql (U) Negative Normal Negative [facility] Comment on above: Order Comment: Name Collection Type:: Clean-Voided Midstream Performed By: #### E SR, DIFF CBC, ADDONUAPLUS, CMP #### [address] #### CH50, C4, C3 #### [facility] , Leukocyte esterase Test strip Ql (U) Negative Normal Negative [facility] Comment on above: Order Comment: Name Collection Type:: Clean-Voided Midstream Performed By: #### E SR, DIFF CBC, ADDONUAPLUS, CMP #### [address] #### CH50, C4, C3 #### [facility] , Mucus,Urine 1+ Critically abnormal [facility] Comment on above: Order Comment: Name Collection Type:: Clean-Voided Midstream Result Comment: PERF ORMED BY: [place] [address] PATHOLOGIST MEAT WASHER HECTOR MEJIA M.D. Performed By: #### E SR, DIFF CBC, ADDONUAPLUS, CMP #### [address] #### CH50, C4, C3 #### [facility] , Nitrite,Urine Negative Normal Negative [facility] Comment on above: Order Comment: Name Collection Type:: Clean-Voided Midstream Performed By: #### E SR, DIFF CBC, ADDONUAPLUS, CMP #### [address] #### CH50, C4, C3 #### [facility] , Occult Blood,Urine Negative Normal Negative [facility] Comment on above: Order Comment: Name Collection Type:: Clean-Voided Midstream Performed By: #### E SR, DIFF CBC, ADDONUAPLUS, CMP #### [address] [place] [address] [place] #### CH50, C4, C3 #### [facility] , pH (U) 5.5 [pH] Normal 5.0-9.0 [facility] Comment on above: Order Comment: Name Collection Type:: Clean-Voided Midstream Performed By: #### E SR, DIFF CBC, ADDONUAPLUS, CMP #### [address] #### CH50, C4, C3 #### [facility] , Protein (U) [Mass/Vol] 20 mg/dL High Negative [facility] Comment on above: Order Comment: Name Collection Type:: Clean-Voided Midstream Performed By: #### E SR, DIFF CBC, ADDONUAPLUS, CMP #### [address] #### CH50, C4, C3 #### [facility] , RBC,Urine 1 [HPF] Normal 0-4 [facility] Comment on above: Order Comment: Name Collection Type:: Clean-Voided Midstream Performed By: #### E SR, DIFF CBC, ADDONUAPLUS, CMP #### [address] #### CH50, C4, C3 #### [facility] , Specificy [place],Urine 1.029 Normal 1.001-1.03 0 [facility] Comment on above: Order Comment: Name Collection Type:: Clean-Voided Midstream Performed By: #### E SR, DIFF CBC, ADDONUAPLUS, CMP #### [place] [address] [place] #### CH50, C4, C3 #### [facility] , Urobilinogen,Urine Normal Normal Normal [facility] Comment on above: Order Comment: Name Collection Type:: Clean-Voided Midstream Performed By: #### E SR, DIFF CBC, ADDONUAPLUS, CMP #### [place] [address] [place] #### CH50, C4, C3 #### [facility] , WBC,Urine 1 [HPF] Normal 0-4 [facility] Comment on above: Order Comment: Name Collection Type:: Clean-Voided Midstream Performed By: #### E SR, DIFF CBC, ADDONUAPLUS, CMP #### [facility] [address] [place] [address] [place] #### CH50, C4, C3 #### [facility] , Eosinophils Auto (Bld) [#/Vo l]Ordered By: Romel Davis on 10-10-2024 Eosinophils (Bld) [#/Vol] Automated eosinophil count 0.0-0.45 [facility] Eosinophils/100 WBC Auto (Bl d)Ordered By: Romel Davis on 10-10-2024 Eosinophils/100 WBC (Bld) Automated eosinophil % . [facility] Epithelial cells.squamous [# /area] in Urine sediment by Automated countOrdered By: Romel Davis on 10-10-2024 Epithelial cells.squamous Auto (Urine sed) [#/Area] Epithelial cells.squamous [#/area] in Urine sediment by Automated count [facility] Erythrocyte Sedimentation Ra bruno 10-10-2024 ESR (Bld) [Velocity] 6 mm/h Normal 0-19 [facility] Comment on above: Result Comment: PERF ORMED BY: [place] [address] PATHOLOGIST MEAT WASHER HECTOR MEJIA M.D. Performed By: #### E SR, DIFF CBC, ADDONUAPLUS, CMP #### [place] [address] [place] #### CH50, C4, C3 #### [facility] , Erythrocyte distribution wid th Auto (RBC) [Ratio]Ordered By: Romel Davis on 10-10-2024 Erythrocyte distribution width (RBC) [Ratio] Erythrocyte distribution width [Ratio] by Automated count 12.0-14.8 [facility] Erythrocyte sedimentation ra te by Photometric methodOrdered By: Romel Davis on 10-10-2024 ESR Photometric method (Bld) [Velocity] Erythrocyte sedimentation rate by Photometric method 0-19 [facility] Erythrocytes [#/area] in Uri ne sediment by Automated countOrdered By: Romel Davis on 10-10-2024 RBC Auto (Urine sed) [#/Area] Erythrocytes [#/area] in Urine sediment by Automated count 0-4 [facility] Globulin Calc (S) [Mass/Vol] Ordered By: Romel Davis on 10-10-2024 Globulin (S) [Mass/Vol] Serum globulin measurement by calculation (mass/volume) [facility] Glucose [Mass/volume] in Ser um or PlasmaOrdered By: Romel Davis on 10-10-2024 Glucose [Mass/Vol] Glucose [Mass/volume ] in Serum or Plasma 70-100 [facility] Comment on above: ADA recommended refe rence rangeRandom Glucose Reference Range is dependent on time and content of last meal. Glucose of more than 200 mg/dL in a nonstressed, ambulatory subject supports the diagnosis of Diabetes Mellitus. Glucose [Mass/volume] in Uri ne by Test stripOrdered By: Romel Davis on 10-10-2024 Glucose Test strip (U) [Mass/Vol] Glucose [Mass/volume] in Urine by Test strip Normal [facility] Hematocrit Auto (Bld) [Volum e fraction]Ordered By: Romel Davis on 10-10-2024 Hematocrit (Bld) [Volume fraction] Hematocrit [Volume Fraction] of Blood by Automated count 38.8-50.0 [facility] Hemoglobin Test strip Ql (U) Ordered By: Romel Davis on 10-10-2024 Hemoglobin Ql (U) Hemoglobin [Presence ] in Urine by Test strip Negative [facility] Hemoglobin [Mass/volume] in BloodOrdered By: Romel Davis 10-10-2024 Hemoglobin (Bld) [Mass/Vol] Hemoglobin [Mass/volume] in Blood 13.0-17.0 [facility] Hyaline casts [#/area] in Ur ine sediment by Automated countOrdered By: Romel Davis on 10-10-2024 Hyaline casts Auto (Urine sed) [#/Area] Hyaline casts [#/area] in Urine sediment by Automated count 0-8 [facility] Ketones Test strip Ql (U)Ord ered By: Romel Davis on 10-10-2024 Ketones Ql (U) Ketones [Presence] i n Urine by Test strip Negative [facility] Leukocyte esterase [Presence ] in Urine by Test stripOrdered By: Romel Davis on 10-10-2024 Leukocyte esterase Test strip Ql (U) Leukocyte esterase [Presence] in Urine by Test strip Negative [facility] Leukocytes [#/area] in Urine sediment by Automated countOrdered By: Romel Davis on 10-10-2024 WBC Auto (Urine sed) [#/Area] Leukocytes [#/area] in Urine sediment by Automated count 0-4 [facility] Leukocytes [#/volume] correc nat for nucleated erythrocytes in Blood by Automated counOrdered By: Romel Davis on 10-10-2024 WBC corrected for nucl RBC Auto (Bld) [#/Vol] Leukocytes [#/volume] corrected for nucleated erythrocytes in Blood by Automated coun 4.1-10.5 [facility] Lymphocytes Auto (Bld) [#/Vo l]Ordered By: Romel Davis on 10-10-2024 Lymphocytes (Bld) [#/Vol] Lymphocytes [#/volume] in Blood by Automated count Low 1.00-4.8 [facility] Lymphocytes/100 WBC Auto (Bl d)Ordered By: Romel Davis on 10-10-2024 Lymphocytes/100 WBC (Bld) Lymphocytes/100 leukocytes in Blood by Automated count . [facility] MCH Auto (RBC) [Entitic mass ]Ordered By: Romel Davis on 10-10-2024 MCH (RBC) [Entitic mass] MCH [Entitic mass] by Automated count 27.5-35.2 [facility] MCHC Auto (RBC) [Mass/Vol]Or dered By: Romel Davis on 10-10-2024 MCHC (RBC) [Mass/Vol] MCHC [Mass/volume] by Automated count 32.5-35.6 [facility] MCV Auto (RBC) [Entitic vol] Ordered By: Romel Davis on 10-10-2024 MCV (RBC) [Entitic vol] MCV [Entitic volume] by Automated count 83.5-101 [facility] Monocytes Auto (Bld) [#/Vol] Ordered By: Romel Davis on 10-10-2024 Monocytes (Bld) [#/Vol] Automated blood monocyte count High 0.0-0.8 [facility] Monocytes/100 WBC Auto (Bld) Ordered By: Romel Davis on 10-10-2024 Monocytes/100 WBC (Bld) Automated monocyte % . [facility] Mucus [Presence] in Urine by AutomatedOrdered By: Romel Davis on 10-10-2024 Mucus Auto Ql (U) Mucus [Presence] in Urine by Automated Abnormal [facility] Neutrophils Auto (Bld) [#/Vo l]Ordered By: Romel Davis on 10-10-2024 Neutrophils (Bld) [#/Vol] Neutrophils [#/volume] in Blood by Automated count 1.8-7.7 [facility] Neutrophils/100 WBC Auto (Bl d)Ordered By: Romel Davis on 10-10-2024 Neutrophils/100 WBC (Bld) Automated neutrophil % . [facility] Nitrite Test strip Ql (U)Ord ered By: Romel Davis on 10-10-2024 Nitrite Ql (U) Nitrite [Presence] i n Urine by Test strip Negative [facility] No Panel InformationOrdered By: Romel Davis on 10-10-2024 Estimated GFR (CKD-EPI) > 60.0 mL/Min [facility] Creatinine Clearance (Chem N/A [facility] Nucleated erythrocytes [Pres ence] in Blood by Automated countOrdered By: Romel Davis on 10-10-2024 Nucleated RBC Auto Ql (Bld) Nucleated erythrocytes [Presence] in Blood by Automated count 0-0.5 [facility] Platelet mean volume Auto (B ld) [Entitic vol]Ordered By: Romel Davis on 10-10-2024 Platelet mean volume (Bld) [Entitic vol] Platelet mean volume [Entitic volume] in Blood by Automated count 6.6-10.1 [facility] Platelets Auto (Bld) [#/Vol] Ordered By: Romel Davis on 10-10-2024 Platelets (Bld) [#/Vol] Platelets [#/volume] in Blood by Automated count 150-450 [facility] Potassium [Moles/volume] in Serum or PlasmaOrdered By: Romel Davis on 10-10-2024 Potassium [Moles/Vol] Potassium [Moles/v olume] in Serum or Plasma 3.5-5.1 [facility] Protein Test strip (U) [Mass /Vol]Ordered By: Romel Davis on 10-10-2024 Protein (U) [Mass/Vol] Protein [Mass/vol ume] in Urine by Test strip High Negative [facility] Protein [Mass/volume] in Ser um or PlasmaOrdered By: Romel Davis on 10-10-2024 Protein [Mass/Vol] Protein [Mass/volume ] in Serum or Plasma Low 6.4-8.9 [facility] RBC Auto (Bld) [#/Vol]Ordere d By: Romel Davis on 10-10-2024 RBC (Bld) [#/Vol] Erythrocytes [#/volu me] in Blood by Automated count 3.90-5.60 [facility] Serum or plasma albumin/glob ulin mass ratioOrdered By: Romel Davis on 10-10-2024 Albumin/Globulin [Mass ratio] Serum or plasma albumin/globulin mass ratio [facility] Serum or plasma anion gap de terminationOrdered By: Romel Davis on 10-10-2024 Anion gap [Moles/Vol] Serum or plasma an ion gap determination 6.0-15.0 [facility] Serum or plasma complement C 3 measurement (mass/volume)Ordered By: Romel Davis on 10-10-2024 Complement C3 [Mass/Vol] Serum or plasma complement C3 measurement (mass/volume) 82-167 [facility] Comment on above: Performed at: [address] [id number] Director: Richy Ardon PhD, Phone: [phone] Serum or plasma complement C 4 measurement (mass/volume)Ordered By: Romel Davis on 10-10-2024 Complement C4 [Mass/Vol] Serum or plasma complement C4 measurement (mass/volume) 12-38 [facility] Sodium [Moles/volume] in Ser um or PlasmaOrdered By: Romel Davis on 10-10-2024 Sodium [Moles/Vol] Sodium [Moles/volume ] in Serum or Plasma 136-145 [facility] Specific gravity Test strip (U) [Rel density]Ordered By: Romel Davis on 10-10-2024 Specific gravity (U) [Rel density] Specific gravity of Urine by Test strip 1.001-1.03 0 [facility] Total hemolytic complement C H50 assayOrdered By: Romel Davis on 10-10-2024 Total Complement (CH50) 59 U/mL >41 [facility] Comment on above: Age Male Female 3 [...] to determine out of range values.Performed at: [address] [place] [id number] Director: Richy Ardon PhD, Phone: [phone] Urea nitrogen [Mass/volume] in Serum or PlasmaOrdered By: Romel Davis on 10-10-2024 Urea nitrogen [Mass/Vol] Urea nitrogen [Mass/volume] in Serum or Plasma High 7-25 [facility] Urobilinogen Test strip (U) [Mass/Vol]Ordered By: Romel Davis on 10-10-2024 Urobilinogen (U) [Mass/Vol] Urobilinogen [Mass/volume] in Urine by Test strip Normal [facility] WBC Auto (Bld) [#/Vol]Ordere d By: Romel Davis on 10-10-2024 WBC (Bld) [#/Vol] Leukocytes [#/volume ] in Blood by Automated count 4.1-10.5 [facility] pH Test strip (U)Ordered By: Romel Davis on 10-10-2024 pH (U) pH of Urine by Test strip 5.0-9.0 [facility] XR chest 2V*on 09-19-2024 XR chest 2V* [facility] [place] [address] XRay Report Signed Patient: Valentin Torre MR#: [id number] [birth year] : 1955 Acct:[id number] Age/Sex: 69 / M ADM Date: 09/19/24 [facility]: [facility] Room: Type: [facility] Attending Dr: Mryiam Fonseca APRN Copies to: Myriam Fonseca APRN [...] Patel Jr., D.O.09/19/2024 10:00 AM Dictation Location: [facility]22 Transcribed By: [facility] 09/19/24 1000 Dictated By: Marcial Patel Jr, DO 09/19/24 1000 Signed By: 09/19/24 1000 Normal [facility] Ambulatory Visit Summaryon 1 Ambulatory [...] [facility] [address] , [place] [address]- [phone] Medications What How Much When Why Instructions [...] laser th (more content not included)... Normal [facility] Urology Office/Clinic Noteon 09-03-2024 Urology Office/Clinic Note [...] Electrolyte panel 10/20/23 - wnl. KUB 01/11/24 [facility] - Kidneys are partially obscured, R>L. Group [...] [facility] [address], [place] [address] [phone] Additional Instructions: esthela R ESWL Patient Education Laser Therapy for Kidney [...] prednisoLONE, Oral, (more content not included)... Normal [facility] Comment on above: Result Comment: Elec tronically Signed By: FLAVIO ONEAL, Zac R\.br\Date and Time Signed: 09/03/24 11:02 EDT\.br\Electronically Co-Signed By: Adela Frias\.br\Date and Time Co-Signed: 09/03/24 11:01 EDT XR hip RT min 2V(w/wo pelvis )*on 08-29-2024 XR hip RT min 2V(w/wo pelvis)* [facility] [address] [place] [address] XRay Report Signed Patient: Valentin Torre MR#: [id number] 31 : 1955 Acct:[id number] Age/Sex: 69 / M ADM Date: 08/29/24 Loc: [facility] Room: Type: [facility] Attending Dr: Jaime Murcia II, MD [...] Patel Jr., D.O.08/29/2024 2:18 PM Dictation Location: [place] [address] Transcribed By: [facility] 08/29/24 141 Dictated By: Marcial Patel Jr, DO 08/29/241416 Signed By: 08/29/24 141 Normal [facility] Alanine aminotransferase [En zymatic activity/volume] in Serum or PlasmaOrdered By: Romel Davis on 07-03-2024 ALT [Catalytic activity/Vol] 21 U/L Normal 7-52 [facility] Comment on above: Performed By: #### E SR, DIFF CBC, ADDONUAPLUS, CMP #### [place] [address] [place] #### CH50, C4, C3 #### [facility] , Albumin [Mass/volume] in Ser um or Plasma by Bromocresol green (BCG) dye binding methoOrdered By: Romel Mendezrow on 07-03-2024 Albumin BCG dye [Mass/Vol] 4.2 g/dL 3.5-5.7 [facility] Alkaline phosphatase [Enzyma tic activity/volume] in Serum or PlasmaOrdered By: Romel Mendezrow on 07-03-2024 ALP [Catalytic activity/Vol] 85 U/L Normal 34-104 [facility] Comment on above: Result Comment: PERF ORMED BY: [place] [address] PATHOLOGIST MEAT WASHER OLMAN ABLARRAN M.D. Performed By: #### E SR, DIFF CBC, ADDONUAPLUS, CMP #### [address] #### CH50, C4, C3 #### [facility] , Aspartate aminotransferase [ Enzymatic activity/volume] in Serum or PlasmaOrdered By: Romel Mendezrow on 07-03-2024 AST [Catalytic activity/Vol] 16 U/L Normal 13-39 [facility] Comment on above: Performed By: #### E SR, DIFF CBC, ADDONUAPLUS, CMP #### [place] [address] [place] #### CH50, C4, C3 #### [facility] , Automated basophil %Ordered By: Romel Mendezrow on 07-03-2024 Basophils/100 WBC (Bld) 0.5 % Normal . [facility] Comment on above: Performed By: #### E SR, DIFF CBC, ADDONUAPLUS, CMP #### [place] [address] [place] #### CH50, C4, C3 #### [facility] , Automated basophil countOrde red By: Romel Davis on 07-03-2024 Basophils (Bld) [#/Vol] 0.0 10*3/uL Normal 0.0-0.2 [facility] Comment on above: Performed By: #### E SR, DIFF CBC, ADDONUAPLUS, CMP #### [place] [address] [place] #### CH50, C4, C3 #### [facility] , Automated blood monocyte cou ntOrdered By: Romel Davis on 07-03-2024 Monocytes (Bld) [#/Vol] 0.4 10*3/uL Normal 0.0-0.8 [facility] Comment on above: Performed By: #### E SR, DIFF CBC, ADDONUAPLUS, CMP #### [place] [address] [place] #### CH50, C4, C3 #### [facility] , Automated eosinophil %Ordere d By: Romel Mendezrow on 07-03-2024 Eosinophils/100 WBC (Bld) 1.1 % Normal . [facility] Comment on above: Performed By: #### E SR, DIFF CBC, ADDONUAPLUS, CMP #### [place] [address] [place] #### CH50, C4, C3 #### [facility] , Automated eosinophil countOr dered By: Romel Davis on 07-03-2024 Eosinophils (Bld) [#/Vol] 0.1 10*3/uL Normal 0.0-0.45 [facility] Comment on above: Performed By: #### E SR, DIFF CBC, ADDONUAPLUS, CMP #### [place] [address] [place] #### CH50, C4, C3 #### [facility] , Automated monocyte %Ordered By: Romel Mendezrow on 07-03-2024 Monocytes/100 WBC (Bld) 7.9 % Normal . [facility] Comment on above: Performed By: #### E SR, DIFF CBC, ADDONUAPLUS, CMP #### [facility] [address] [place] [address] [place] #### CH50, C4, C3 #### [facility] , Automated neutrophil %Ordere d By: Romel Mendezrow on 07-03-2024 Neutrophils/100 WBC (Bld) 76.5 % Normal . [facility] Comment on above: Performed By: #### E SR, DIFF CBC, ADDONUAPLUS, CMP #### [place] [address] [place] #### CH50, C4, C3 #### [facility] , Bacteria [Presence] in Urine by AutomatedOrdered By: Romel Mendezrow on 07-03-2024 Bacteria Auto Ql (U) None seen [HPF] None Seen [facility] Bilirubin Test strip Ql (U)O rdered By: Romel Ryan on 07-03-2024 Bilirubin Ql (U) Negative Negative [facility] Bilirubin.total [Mass/volume ] in Serum or PlasmaOrdered By: Romel Davis on 07-03-2024 Bilirubin [Mass/Vol] 0.5 mg/dL Normal 0.3-1.0 [facility] Comment on above: Performed By: #### E SR, DIFF CBC, ADDONUAPLUS, CMP #### [facility] [address] [place] [address] [place] #### CH50, C4, C3 #### [facility] , Calcium [Mass/volume] in Ser um or PlasmaOrdered By: Romel Davis on 07-03-2024 Calcium [Mass/Vol] 8.7 mg/dL Normal 8.6-10.3 [facility] Comment on above: Performed By: #### E SR, DIFF CBC, ADDONUAPLUS, CMP #### [facility] [address] [place] [address] [place] #### CH50, C4, C3 #### [facility] , Carbon dioxide, total [Moles /volume] in Serum or PlasmaOrdered By: Romel Davis on 07-03-2024 CO2 [Moles/Vol] 22.6 mmol/L Normal 21.0-31.0 [facility] Comment on above: Performed By: #### E SR, DIFF CBC, ADDONUAPLUS, CMP #### [address] #### CH50, C4, C3 #### [facility] , Chloride [Moles/volume] in S ace or PlasmaOrdered By: Romel Mendezrow on 07-03-2024 Chloride [Moles/Vol] 105 mmol/L Normal 98-107 [facility] Comment on above: Performed By: #### E SR, DIFF CBC, ADDONUAPLUS, CMP #### [address] #### CH50, C4, C3 #### [facility] , Color of Urine by AutoOrdere d By: Romel Mendezrow on 07-03-2024 Color (U) Yellow Normal Yellow [facility] Comment on above: Order Comment: Name Collection Type:: Clean-Voided Midstream Performed By: #### E SR, DIFF CBC, ADDONUAPLUS, CMP #### [address] #### CH50, C4, C3 #### [facility] , Complement C3on 07-03-2024 Complement C3 127 mg/dL Normal 82-167 [facility] Comment on above: Result Comment: Perf ormed at: CB - [facility] [address] [id number] Lettuce Cutter: Richy Ardon PhD, Phone: [phone] Performed By: #### E SR, DIFF CBC, ADDONUAPLUS, CMP #### [place] [address] [place] #### CH50, C4, C3 #### [facility] , Complement C4on 07-03-2024 Complement C4 15 mg/dL Normal 12-38 [facility] Comment on above: Result Comment: Perf ormed at: [address] [id number] Lettuce Cutter: Richy Ardon PhD, Phone: [phone] PERFORMED BY: [place] [address] PATHOLOGIST MEAT WASHER OLMAN ALBARRAN M.D. Performed By: #### E SR, DIFF CBC, ADDONUAPLUS, CMP #### [address] #### CH50, C4, C3 #### [facility] , Complement Total (CH50)on Complement Total (CH50) 56 Normal >41 [facility] Comment on above: Result [...] determine out of range values. Performed at: [facility] [id number] Lettuce Cutter: Richy Ardon PhD, Phone: [phone] PERFORMED BY: [place] [address] PATHOLOGIST MEAT WASHER OLMAN ALBARRAN M.D. Performed By: #### E SR, DIFF CBC, ADDONUAPLUS, CMP #### [place] [address] [place] #### CH50, C4, C3 #### [facility] , Complete Blood Count Auto Di ffon 07-03-2024 Mean Corpuscular HGB Conc 34.2 g/dL Normal 32.5-35.6 [facility] Comment on above: Performed By: #### E SR, DIFF CBC, ADDONUAPLUS, CMP #### [address] [place] [address] [place] #### CH50, C4, C3 #### [facility] , NRBC% 0.1 /100{WBC} Normal 0-0.5 [facility] Comment on above: Performed By: #### E SR, DIFF CBC, ADDONUAPLUS, CMP #### [address] #### CH50, C4, C3 #### [facility] , Comprehensive Metabolic Pane vivek 07-03-2024 Albumin [Mass/Vol] 4.2 g/dL Normal 3.5-5.7 [facility] Comment on above: Performed By: #### E SR, DIFF CBC, ADDONUAPLUS, CMP #### [address] #### CH50, C4, C3 #### [facility] , GFR/1.73 sq M.predicted MDRD (S/P/Bld) [Vol rate/Area] mL/min/{1.73_m2} Normal [facility] Comment on above: Performed By: #### E SR, DIFF CBC, ADDONUAPLUS, CMP #### [address] #### CH50, C4, C3 #### [facility] , Creatinine [Mass/volume] in Serum or PlasmaOrdered By: Romel Davis on 07-03-2024 Creatinine [Mass/Vol] 0.87 mg/dL Normal 0.70-1.30 [facility] Comment on above: Performed By: #### E SR, DIFF CBC, ADDONUAPLUS, CMP #### [place] [address] [place] #### CH50, C4, C3 #### [facility] , Dipstick and Microscopicon 0 07-03-2024 Bacteria,Urine None Seen Normal None Seen [facility] Comment on above: Order Comment: Name Collection Type:: Clean-Voided Midstream Performed By: #### E SR, DIFF CBC, ADDONUAPLUS, CMP #### [address] #### CH50, C4, C3 #### [facility] , Bilirubin,Urine Negative Normal Negative [facility] Comment on above: Order Comment: Name Collection Type:: Clean-Voided Midstream Performed By: #### E SR, DIFF CBC, ADDONUAPLUS, CMP #### [address] #### CH50, C4, C3 #### [facility] , Glucose Ql (U) Normal Normal Normal [facility] Comment on above: Order Comment: Name Collection Type:: Clean-Voided Midstream Performed By: #### E SR, DIFF CBC, ADDONUAPLUS, CMP #### [address] #### CH50, C4, C3 #### [facility] , Hyaline Casts,Urine 9-19 High 0-8 [facility] Comment on above: Order Comment: Name Collection Type:: Clean-Voided Midstream Performed By: #### E SR, DIFF CBC, ADDONUAPLUS, CMP #### [address] #### CH50, C4, C3 #### [facility] , Mucus,Urine 1+ Critically abnormal [facility] Comment on above: Order Comment: Name Collection Type:: Clean-Voided Midstream Result Comment: PERF ORMED BY: [place] [address] PATHOLOGIST MEAT WASHER OLMAN ALBARRAN M.D. Performed By: #### E SR, DIFF CBC, ADDONUAPLUS, CMP #### [address] #### CH50, C4, C3 #### [facility] , Nitrite,Urine Negative Normal Negative [facility] Comment on above: Order Comment: Name Collection Type:: Clean-Voided Midstream Performed By: #### E SR, DIFF CBC, ADDONUAPLUS, CMP #### [address] #### CH50, C4, C3 #### [facility] , Occult Blood,Urine Negative Normal Negative [facility] Comment on above: Order Comment: Name Collection Type:: Clean-Voided Midstream Performed By: #### E SR, DIFF CBC, ADDONUAPLUS, CMP #### [address] #### CH50, C4, C3 #### [facility] , Protein,Urine Trace High Negative [facility] Comment on above: Order Comment: Name Collection Type:: Clean-Voided Midstream Performed By: #### E SR, DIFF CBC, ADDONUAPLUS, CMP #### [address] #### CH50, C4, C3 #### [facility] , RBC,Urine 1-2 Normal 0-4 [facility] Comment on above: Order Comment: Name Collection Type:: Clean-Voided Midstream Performed By: #### E SR, DIFF CBC, ADDONUAPLUS, CMP #### [address] #### CH50, C4, C3 #### [facility] , Specificy [place],Urine 1.027 Normal 1.001-1.03 0 [facility] Comment on above: Order Comment: Name Collection Type:: Clean-Voided Midstream Performed By: #### E SR, DIFF CBC, ADDONUAPLUS, CMP #### [address] #### CH50, C4, C3 #### [facility] , Squamous Epithelial Cell,Urine 1-2 Normal 0-2 [facility] Comment on above: Order Comment: Name Collection Type:: Clean-Voided Midstream Performed By: #### E SR, DIFF CBC, ADDONUAPLUS, CMP #### [address] #### CH50, C4, C3 #### [facility] , Urobilinogen,Urine 2 mg/dL High Normal [facility] Comment on above: Order Comment: Name Collection Type:: Clean-Voided Midstream Performed By: #### E SR, DIFF CBC, ADDONUAPLUS, CMP #### [address] #### CH50, C4, C3 #### [facility] , WBC,Urine 1-2 Normal 0-4 [facility] Comment on above: Order Comment: Name Collection Type:: Clean-Voided Midstream Performed By: #### E SR, DIFF CBC, ADDONUAPLUS, CMP #### [address] #### CH50, C4, C3 #### [facility] , Epithelial cells.squamous [# /area] in Urine sediment by Automated countOrdered By: Romel Davis on 07-03-2024 Epithelial cells.squamous Auto (Urine sed) [#/Area] 1-2 [HPF] 0-2 [facility] Erythrocyte Sedimentation Ra bruno 07-03-2024 ESR (Bld) [Velocity] 7 mm/h Normal 0-19 [facility] Comment on above: Result Comment: PERF ORMED BY: [place] [address] PATHOLOGIST MEAT WASHER OLMAN ALBARRAN M.D. Performed By: #### E SR, DIFF CBC, ADDONUAPLUS, CMP #### [address] #### CH50, C4, C3 #### [facility] , Erythrocyte distribution wid th [Ratio] by Automated countOrdered By: Romel Davis on 07-03-2024 Erythrocyte distribution width (RBC) [Ratio] 15.6 % High 12.0-14.8 [facility] Comment on above: Performed By: #### E SR, DIFF CBC, ADDONUAPLUS, CMP #### [place] [address] [place] #### CH50, C4, C3 #### [facility] , Erythrocyte sedimentation ra te by Photometric methodOrdered By: Romel Davis on 07-03-2024 ESR Photometric method (Bld) [Velocity] 7 mm/hr 0-19 [facility] Erythrocytes [#/area] in Uri ne sediment by Automated countOrdered By: Romel Davis on 07-03-2024 RBC Auto (Urine sed) [#/Area] 1-2 [HPF] 0-4 [facility] Erythrocytes [#/volume] in B lood by Automated countOrdered By: Romel Davis on 07-03-2024 RBC (Bld) [#/Vol] 5.10 10*6/uL Normal 3.90-5.60 [facility] Comment on above: Performed By: #### E SR, DIFF CBC, ADDONUAPLUS, CMP #### [place] [address] [place] #### CH50, C4, C3 #### [facility] , Glucose [Mass/volume] in Ser um or PlasmaOrdered By: Romel Davis on 07-03-2024 Glucose [Mass/Vol] 136 mg/dL High 70-100 [facility] Comment on above: ADA recommended refe rence rangeRandom Glucose Reference Range is dependent on time and content of last meal. Glucose of more than 200 mg/dL in a nonstressed, ambulatory subject supports the diagnosis of Diabetes Mellitus. Result Comment: [place] om Glucose Reference Range is dependent on time and content of last meal. Glucose of more than 200 mg/dL in a nonstressed, ambulatory subject supports the diagnosis of Diabetes Mellitus. ADA recommended reference range Performed By: #### E SR, DIFF CBC, ADDONUAPLUS, CMP #### [place] [address] [place] #### CH50, C4, C3 #### [facility] , Glucose [Mass/volume] in Uri ne by Test stripOrdered By: Romel Davis on 07-03-2024 Glucose Test strip (U) [Mass/Vol] Normal mg/dL Normal [facility] Hematocrit [Volume Fraction] of Blood by Automated countOrdered By: Romel Davis on 07-03-2024 Hematocrit (Bld) [Volume fraction] 44.6 % Normal 38.8-50.0 [facility] Comment on above: Performed By: #### E SR, DIFF CBC, ADDONUAPLUS, CMP #### [place] [address] [place] #### CH50, C4, C3 #### [facility] , Hemoglobin Test strip Ql (U) Ordered By: Romel Davis on 07-03-2024 Hemoglobin Ql (U) Negative Negative [facility] Hemoglobin [Mass/volume] in BloodOrdered By: Romel Mendezrow on 07-03-2024 Hemoglobin (Bld) [Mass/Vol] 15.3 g/dL Normal 13.0-17.0 [facility] Comment on above: Performed By: #### E SR, DIFF CBC, ADDONUAPLUS, CMP #### [address] #### CH50, C4, C3 #### [facility] , Hyaline casts [#/area] in Ur ine sediment by Automated countOrdered By: Romel Mendezrow on 07-03-2024 Hyaline casts Auto (Urine sed) [#/Area] 9-19 [LPF] High 0-8 [facility] Ketones [Presence] in Urine by Test stripOrdered By: Romel Mendezrow on 07-03-2024 Ketones Ql (U) Trace High Negative [facility] Comment on above: Order Comment: Name Collection Type:: Clean-Voided Midstream Performed By: #### E SR, DIFF CBC, ADDONUAPLUS, CMP #### [place] [address] [place] #### CH50, C4, C3 #### [facility] , Leukocyte esterase [Presence ] in Urine by Test stripOrdered By: Romel Mendezrow on 07-03-2024 Leukocyte esterase Test strip Ql (U) Negative Normal Negative [facility] Comment on above: Order Comment: Name Collection Type:: Clean-Voided Midstream Performed By: #### E SR, DIFF CBC, ADDONUAPLUS, CMP #### [place] [address] [place] #### CH50, C4, C3 #### [facility] , Leukocytes [#/area] in Urine sediment by Automated countOrdered By: Romel Davis on 07-03-2024 WBC Auto (Urine sed) [#/Area] 1-2 [HPF] 0-4 [facility] Leukocytes [#/volume] correc nat for nucleated erythrocytes in Blood by Automated counOrdered By: Romel Davis on 07-03-2024 WBC corrected for nucl RBC Auto (Bld) [#/Vol] 5.5 10*3/uL 4.1-10.5 [facility] Leukocytes [#/volume] in Blo od by Automated countOrdered By: Romel Davis on 07-03-2024 WBC (Bld) [#/Vol] 5.5 10*3/uL Normal 4.1-10.5 [facility] Comment on above: Performed By: #### E SR, DIFF CBC, ADDONUAPLUS, CMP #### [place] [address] [place] #### CH50, C4, C3 #### [facility] , Lymphocytes [#/volume] in Bl ood by Automated countOrdered By: Romel Davis on 07-03-2024 Lymphocytes (Bld) [#/Vol] 0.8 10*3/uL Low 1.00-4.8 [facility] Comment on above: Performed By: #### E SR, DIFF CBC, ADDONUAPLUS, CMP #### [facility] [address] [place] [address] [place] #### CH50, C4, C3 #### [facility] , Lymphocytes/100 leukocytes i n Blood by Automated countOrdered By: Romel Mendezrow on 07-03-2024 Lymphocytes/100 WBC (Bld) 14.0 % Normal . [facility] Comment on above: Performed By: #### E SR, DIFF CBC, ADDONUAPLUS, CMP #### [facility] [address] [place] [address] [place] #### CH50, C4, C3 #### [facility] , MCH [Entitic mass] by Automa nat countOrdered By: Romelsera Davis on 07-03-2024 MCH (RBC) [Entitic mass] 30.0 pg Normal 27.5-35.2 [facility] Comment on above: Performed By: #### E SR, DIFF CBC, ADDONUAPLUS, CMP #### [place] [address] [place] #### CH50, C4, C3 #### [facility] , MCHC Auto (RBC) [Mass/Vol]Or dered By: Romel Davis on 07-03-2024 MCHC (RBC) [Mass/Vol] 34.2 g/dL 32.5-35.6 [facility] MCV [Entitic volume] by Auto mated countOrdered By: Romel Davis on 07-03-2024 MCV (RBC) [Entitic vol] 87.5 fL Normal 83.5-101 [facility] Comment on above: Performed By: #### E SR, DIFF CBC, ADDONUAPLUS, CMP #### [facility] [address] [place] [address] [place] #### CH50, C4, C3 #### [facility] , Mucus [Presence] in Urine by AutomatedOrdered By: Romel Davis on 07-03-2024 Mucus Auto Ql (U) 1+ [LPF] Abnormal [facility] Neutrophils [#/volume] in Bl ood by Automated countOrdered By: Romel Davis on 07-03-2024 Neutrophils (Bld) [#/Vol] 4.2 10*3/uL Normal 1.8-7.7 [facility] Comment on above: Performed By: #### E SR, DIFF CBC, ADDONUAPLUS, CMP #### [facility] [address] [place] [address] [place] #### CH50, C4, C3 #### [facility] , Nitrite Test strip Ql (U)Ord ered By: Romel Mendezrow on 07-03-2024 Nitrite Ql (U) Negative Negative [facility] No Panel InformationOrdered By: Romel Mendezrow on 07-03-2024 Estimated GFR (CKD-EPI) > 60.0 mL/Min [facility] Creatinine Clearance (Chem N/A [facility] Total Complement (CH50) 56 U/mL >41 [facility] Comment on above: Age Male Female 3 [...] to determine out of range values.Performed at: [facility] [place] [id number] Director: Ricyh Ardon PhD, Phone: [phone] Nucleated erythrocytes [Pres ence] in Blood by Automated countOrdered By: Romel Davis on 07-03-2024 Nucleated RBC Auto Ql (Bld) 0.1 /100{WBC} 0-0.5 [facility] Platelet mean volume [Entiti c volume] in Blood by Automated countOrdered By: Romel Davis on 07-03-2024 Platelet mean volume (Bld) [Entitic vol] 8.2 fL Normal 6.6-10.1 [facility] Comment on above: Performed By: #### E SR, DIFF CBC, ADDONUAPLUS, CMP #### [facility] [address] [place] [address] [place] #### CH50, C4, C3 #### [facility] , Platelets [#/volume] in Bloo d by Automated countOrdered By: Romel Davis on 07-03-2024 Platelets (Bld) [#/Vol] 160 10*3/uL Normal 150-450 [facility] Comment on above: Performed By: #### E SR, DIFF CBC, ADDONUAPLUS, CMP #### [facility] [address] [place] [address] [place] #### CH50, C4, C3 #### [facility] , Potassium [Moles/volume] in Serum or PlasmaOrdered By: Romel Davis on 07-03-2024 Potassium [Moles/Vol] 4.0 mmol/L Normal 3.5-5.1 [facility] Comment on above: Performed By: #### E SR, DIFF CBC, ADDONUAPLUS, CMP #### [place] [address] [place] #### CH50, C4, C3 #### [facility] , Protein Test strip (U) [Mass /Vol]Ordered By: Romel Davis on 07-03-2024 Protein (U) [Mass/Vol] Trace mg/dL High Negative [facility] Protein [Mass/volume] in Ser um or PlasmaOrdered By: Romel Davis on 07-03-2024 Protein [Mass/Vol] 6.3 g/dL Low 6.4-8.9 [facility] Comment on above: Performed By: #### E SR, DIFF CBC, ADDONUAPLUS, CMP #### [facility] [address] [place] [address] [place] #### CH50, C4, C3 #### [facility] , Serum globulin measurement b y calculation (mass/volume)Ordered By: Romel Mendezrow on 07-03-2024 Globulin (S) [Mass/Vol] 2.1 g/dL Normal [facility] Comment on above: Performed By: #### E SR, DIFF CBC, ADDONUAPLUS, CMP #### [facility] [address] [place] [address] [place] #### CH50, C4, C3 #### [facility] , Serum or plasma albumin/glob ulin mass ratioOrdered By: Romel Davis on 07-03-2024 Albumin/Globulin [Mass ratio] 2.0 {ratio} Normal [facility] Comment on above: Performed By: #### E SR, DIFF CBC, ADDONUAPLUS, CMP #### [facility] [address] [place] [address] [place] #### CH50, C4, C3 #### [facility] , Serum or plasma anion gap de terminationOrdered By: Romel Davis on 07-03-2024 Anion gap [Moles/Vol] 13.4 mmol/L Normal 6.0-15.0 [facility] Comment on above: Performed By: #### E SR, DIFF CBC, ADDONUAPLUS, CMP #### [facility] [address] [place] [address] [place] #### CH50, C4, C3 #### [facility] , Serum or plasma complement C 3 measurement (mass/volume)Ordered By: Romel Davis on 07-03-2024 Complement C3 [Mass/Vol] 127 mg/dL 82-167 [facility] Comment on above: Performed at: [employer] [id number] Director: Richy Ardon PhD, Phone: [phone] Serum or plasma complement C 4 measurement (mass/volume)Ordered By: Romel Davis on 07-03-2024 Complement C4 [Mass/Vol] 15 mg/dL 12-38 [facility] Comment on above: Performed at: [employer] [address] [id number] Director: Richy Ardon PhD, Phone: [phone] Sodium [Moles/volume] in Ser um or PlasmaOrdered By: Romel Davis on 07-03-2024 Sodium [Moles/Vol] 137 mmol/L Normal 136-145 [facility] Comment on above: Performed By: #### E SR, DIFF CBC, ADDONUAPLUS, CMP #### [facility] [address] [place] [address] #### CH50, C4, C3 #### [facility] , Specific gravity Test strip (U) [Rel density]Ordered By: Romel Davis on 07-03-2024 Specific gravity (U) [Rel density] 1.027 1.001-1.03 0 [facility] Urea nitrogen [Mass/volume] in Serum or PlasmaOrdered By: Romel Davis on 07-03-2024 Urea nitrogen [Mass/Vol] 17 mg/dL Normal 7-25 [facility] Comment on above: Performed By: #### E SR, DIFF CBC, ADDONUAPLUS, CMP #### [address] #### CH50, C4, C3 #### [facility] , Urine appearanceOrdered By: Romel Davis on 07-03-2024 Appearance (U) Clear Normal Clear [facility] Comment on above: Order Comment: Name Collection Type:: Clean-Voided Midstream Performed By: #### E SR, DIFF CBC, ADDONUAPLUS, CMP #### [place] [address] [place] #### CH50, C4, C3 #### [facility] , Urobilinogen Test strip (U) [Mass/Vol]Ordered By: Romel Davis on 07-03-2024 Urobilinogen (U) [Mass/Vol] 2 mg/dL High Normal [facility] pH of Urine by Test stripOrd ered By: Romel Davis on 07-03-2024 pH (U) 6.5 [pH] Normal 5.0-9.0 [facility] Comment on above: Order Comment: Name Collection Type:: Clean-Voided Midstream Performed By: #### E SR, DIFF CBC, ADDONUAPLUS, CMP #### [place] [address] [place] #### CH50, C4, C3 #### [facility] , Comprehensive metabolic pane vivek 06-14-2024 Albumin [Mass/Vol] 4.4 g/dL 3.2 - 5.3 g/dL [facility] ALP [Catalytic activity/Vol] 80 U/L 39 - 130 U/L [facility] ALT No additional P-5'-P [Catalytic activity/Vol] 24 U/L 0 - 40 U/L [facility] Anion gap [Moles/Vol] 9 mmol/L 5 - 15 mmol/L [facility] AST [Catalytic activity/Vol] 18 U/L 0 - 41 U/L [facility] Bilirubin [Mass/Vol] 0.5 mg/dL 0.3 - 1 .2 mg/dL [facility] Calcium [Mass/Vol] 9.6 mg/dL 8.5 - 10. 5 mg/dL [facility] Chloride [Moles/Vol] 107 mmol/L 98 - 10 9 mmol/L [facility] CO2 [Moles/Vol] 23 mmol/L 22 - 32 mmol/L [facility] Creatinine [Mass/Vol] 1.10 mg/dL 0.60 - 1.30 mg/dL [facility] Comment on above: METHOD TRACEABLE TO [facility] STANDARD eGFR (CKD-EPI)non-race dependent 74 - PINF [facility] Comment on above: Reported eGFR is based on the CKD-EPI 2020 equation that does not use a race coefficient. Glucose [Mass/Vol] 86 mg/dL 65 - 99 mg/dL [facility] Interpretation and review of laboratory results Abnormal [facility] Potassium [Moles/Vol] 4.0 mmol/L 3.5 - 5.0 mmol/L [facility] Protein [Mass/Vol] 6.9 g/dL 6.0 - 8.0 g/dL [facility] Sodium [Moles/Vol] 139 mmol/L 134 - 146 mmol/L [facility] Urea nitrogen [Mass/Vol] 33 mg/dL High 5 - 27 mg/dL [facility] Alanine aminotransferase [En zymatic activity/volume] in Serum or PlasmaOrdered By: Romel Davis on 03-13-2024 ALT [Catalytic activity/Vol] 22 U/L 7-52 [facility] Albumin [Mass/volume] in Ser um or Plasma by Bromocresol green (BCG) dye binding methoOrdered By: Romel Davis on 03-13-2024 Albumin BCG dye [Mass/Vol] 3.7 g/dL 3.5-5.7 [facility] Alkaline phosphatase [Enzyma tic activity/volume] in Serum or PlasmaOrdered By: Romel Davis on 03-13-2024 ALP [Catalytic activity/Vol] 79 U/L 34-104 [facility] Aspartate aminotransferase [ Enzymatic activity/volume] in Serum or PlasmaOrdered By: Romel Davis on 03-13-2024 AST [Catalytic activity/Vol] 17 U/L 13-39 [facility] Automated erythrocytes count in urine sediment (number/area)Ordered By: Romel Davis on 03-13-2024 RBC Auto (Urine sed) [#/Area] 1-2 [HPF] 0-4 [facility] Automated leukocytes count i n urine sediment (number/area)Ordered By: Romel Davis on 03-13-2024 WBC Auto (Urine sed) [#/Area] 0-1 [HPF] 0-4 [facility] Basophils Auto (Bld) [#/Vol] Ordered By: Romel Davis on 03-13-2024 Basophils (Bld) [#/Vol] 0.0 10*3/uL 0.0-0.2 [facility] Basophils/100 WBC Auto (Bld) Ordered By: Romel Davis on 03-13-2024 Basophils/100 WBC (Bld) 0.5 % . [facility] Bilirubin Test strip Ql (U)O rdered By: Romel Davis on 03-13-2024 Bilirubin Ql (U) Negative Negative [facility] Bilirubin.total [Mass/volume ] in Serum or PlasmaOrdered By: Romel Davis on 03-13-2024 Bilirubin [Mass/Vol] 0.6 mg/dL 0.3-1.0 [facility] Calcium [Mass/volume] in Ser um or PlasmaOrdered By: Romel Davis on 03-13-2024 Calcium [Mass/Vol] 8.8 mg/dL 8.6-10.3 [facility] Carbon dioxide, total [Moles /volume] in Serum or PlasmaOrdered By: Romel Davis on 03-13-2024 CO2 [Moles/Vol] 25.0 mmol/L 21.0-31.0 [facility] Chloride [Moles/volume] in S ace or PlasmaOrdered By: Romel Davis on 03-13-2024 Chloride [Moles/Vol] 105 mmol/L 98-107 [facility] Color Auto (U)Ordered By: Bridgett ttcourtney Davis on 03-13-2024 Color (U) Dark yellow Abnormal Yellow [facility] Creatinine [Mass/volume] in Serum or PlasmaOrdered By: Romel Davis on 03-13-2024 Creatinine [Mass/Vol] 0.94 mg/dL 0.70-1.30 [facility] Eosinophils Auto (Bld) [#/Vo l]Ordered By: Romel Davis on 03-13-2024 Eosinophils (Bld) [#/Vol] 0.1 10*3/uL 0.0-0.45 [facility] Eosinophils/100 WBC Auto (Bl d)Ordered By: Romel Davis on 03-13-2024 Eosinophils/100 WBC (Bld) 1.3 % . [facility] Erythrocyte distribution wid th Auto (RBC) [Ratio]Ordered By: Romel Davis on 03-13-2024 Erythrocyte distribution width (RBC) [Ratio] 14.8 % 12.0-14.8 [facility] Erythrocyte sedimentation ra te by Photometric methodOrdered By: Romel Davis on 03-13-2024 ESR Photometric method (Bld) [Velocity] 29 mm/hr High 0-19 [facility] Globulin Calc (S) [Mass/Vol] Ordered By: Romel Davis on 03-13-2024 Globulin (S) [Mass/Vol] 2.3 g/dL [facility] Glucose [Mass/volume] in Ser um or PlasmaOrdered By: Romel Davis on 03-13-2024 Glucose [Mass/Vol] 124 mg/dL High 70-100 [facility] Comment on above: ADA recommended refe rence rangeRandom Glucose Reference Range is dependent on time and content of last meal. Glucose of more than 200 mg/dL in a nonstressed, ambulatory subject supports the diagnosis of Diabetes Mellitus. Hematocrit Auto (Bld) [Volum e fraction]Ordered By: Romel Davis on 03-13-2024 Hematocrit (Bld) [Volume fraction] 36.6 % Low 38.8-50.0 [facility] Hemoglobin [Mass/volume] in BloodOrdered By: Romel Davis on 03-13-2024 Hemoglobin (Bld) [Mass/Vol] 12.4 g/dL Low 13.0-17.0 [facility] Ketones Auto test strip (U) [Mass/Vol]Ordered By: Romel Davis on 03-13-2024 Ketones (U) [Mass/Vol] Trace High Negative Fi [facility] - UrinalysisOrder ed By: Romel Davis on 03-13-2024 Hyaline casts LM Ql (Urine sed) 0-8 [LPF] 0-8 [facility] Leukocytes [#/volume] correc nat for nucleated erythrocytes in Blood by Automated counOrdered By: Romel Davis on 03-13-2024 WBC corrected for nucl RBC Auto (Bld) [#/Vol] 6.5 10*3/uL 4.1-10.5 [facility] Lymphocytes Auto (Bld) [#/Vo l]Ordered By: Romel Davis on 03-13-2024 Lymphocytes (Bld) [#/Vol] 0.8 10*3/uL Low 1.00-4.8 [facility] Lymphocytes/100 WBC Auto (Bl d)Ordered By: Romel Davis on 03-13-2024 Lymphocytes/100 WBC (Bld) 12.1 % . [facility] MCH Auto (RBC) [Entitic mass ]Ordered By: Romel Davis on 03-13-2024 MCH (RBC) [Entitic mass] 30.0 pg 27.5-35.2 [facility] MCHC Auto (RBC) [Mass/Vol]Or dered By: Romel Davis on 03-13-2024 MCHC (RBC) [Mass/Vol] 33.9 g/dL 32.5-35.6 [facility] MCV Auto (RBC) [Entitic vol] Ordered By: Romel Davis on 03-13-2024 MCV (RBC) [Entitic vol] 88.3 fL 83.5-101 [facility] Monocytes Auto (Bld) [#/Vol] Ordered By: Romel Davis on 03-13-2024 Monocytes (Bld) [#/Vol] 0.7 10*3/uL 0.0-0.8 [facility] Monocytes/100 WBC Auto (Bld) Ordered By: Romel Davis on 03-13-2024 Monocytes/100 WBC (Bld) 10.7 % . [facility] Neutrophils Auto (Bld) [#/Vo l]Ordered By: Romel Davis on 03-13-2024 Neutrophils (Bld) [#/Vol] 4.9 10*3/uL 1.8-7.7 [facility] Neutrophils/100 WBC Auto (Bl d)Ordered By: Romel Davis on 03-13-2024 Neutrophils/100 WBC (Bld) 75.4 % . [facility] Nitrite Test strip Ql (U)Ord ered By: Romel Davis on 03-13-2024 Nitrite Ql (U) Negative Negative [facility] No Panel InformationOrdered By: Romel Davis on 03-13-2024 Estimated GFR (CKD-EPI) > 60.0 mL/Min [facility] Creatinine Clearance (Chem N/A [facility] Total Complement (CH50) >60 U/mL >41 [facility] Comment on above: Age Male Female 3 [...] to determine out of range values.Performed at: [facility] [id number] Director: Richy Ardon PhD, Phone: [phone] Nucleated erythrocytes [Pres ence] in Blood by Automated countOrdered By: Romel Davis on 03-13-2024 Nucleated RBC Auto Ql (Bld) 0.1 /100{WBC} 0-0.5 [facility] Platelet mean volume Auto (B ld) [Entitic vol]Ordered By: Romel Davis on 03-13-2024 Platelet mean volume (Bld) [Entitic vol] 8.0 fL 6.6-10.1 [facility] Platelets Auto (Bld) [#/Vol] Ordered By: Romel Davis on 03-13-2024 Platelets (Bld) [#/Vol] 258 10*3/uL 150-450 [facility] Potassium [Moles/volume] in Serum or PlasmaOrdered By: Romel Davis on 03-13-2024 Potassium [Moles/Vol] 4.3 mmol/L 3.5-5.1 [facility] Protein Auto test strip (U) [Mass/Vol]Ordered By: Romel Davis on 03-13-2024 Protein (U) [Mass/Vol] Negative Negative [facility] Protein [Mass/volume] in Ser um or PlasmaOrdered By: Romel Davis on 03-13-2024 Protein [Mass/Vol] 6.0 g/dL Low 6.4-8.9 [facility] RBC Auto (Bld) [#/Vol]Ordere d By: Romel Davis on 03-13-2024 RBC (Bld) [#/Vol] 4.14 10*6/uL 3.90-5.60 [facility] Serum or plasma albumin/glob ulin mass ratioOrdered By: Romel Davis on 03-13-2024 Albumin/Globulin [Mass ratio] 1.6 {ratio} [facility] Serum or plasma anion gap de terminationOrdered By: Romel Davis on 03-13-2024 Anion gap [Moles/Vol] 11.3 mmol/L 6.0-15.0 Fi [facility] Serum or plasma complement C 3 measurement (mass/volume)Ordered By: Romel Davis on 03-13-2024 Complement C3 [Mass/Vol] 153 mg/dL 82-167 [facility] Comment on above: Performed at: [address] [id number] Director: Richy Ardon PhD, Phone: [phone] Serum or plasma complement C 4 measurement (mass/volume)Ordered By: Romel Davis on 03-13-2024 Complement C4 [Mass/Vol] 24 mg/dL 12-38 [facility] Sodium [Moles/volume] in Ser um or PlasmaOrdered By: Romel Davis on 03-13-2024 Sodium [Moles/Vol] 137 mmol/L 136-145 [facility] Specific gravity Auto test s trip (U) [Rel density]Ordered By: Romel Davis on 03-13-2024 Specific gravity (U) [Rel density] 1.024 1.001-1.03 0 [facility] Squamous epithelial cells de tection in urine sediment by light microscopyOrdered By: Romel Davis on 03-13-2024 Epithelial cells.squamous LM Ql (Urine sed) None seen [HPF] 0-2 [facility] Urea nitrogen [Mass/volume] in Serum or PlasmaOrdered By: Romel Davis on 03-13-2024 Urea nitrogen [Mass/Vol] 26 mg/dL High 7-25 [facility] Urine bacteria detection by automated methodOrdered By: Romel Davis on 03-13-2024 Bacteria Auto Ql (U) None seen None Seen [facility] Urine clarity by refractomet ry automatedOrdered By: Romel Davis on 03-13-2024 Clarity Refractometry automated (U) Clear Clear [facility] Urine glucose measurement by automated test strip (mass/volume)Ordered By: Romel Davis on 03-13-2024 Glucose Auto test strip (U) [Mass/Vol] Normal mg/dL Normal [facility] Urine hemoglobin detection b y automated test stripOrdered By: Romel Davis on 03-13-2024 Hemoglobin Auto test strip Ql (U) Negative Negative [facility] Urine leukocyte esterase det ection by automated test stripOrdered By: Romel Davis on 03-13-2024 Leukocyte esterase Auto test strip Ql (U) 1+ High Negative [facility] Urobilinogen Auto test strip (U) [Mass/Vol]Ordered By: Romel Davis on 03-13-2024 Urobilinogen (U) [Mass/Vol] Normal mg/dL Normal [facility] WBC Auto (Bld) [#/Vol]Ordere d By: Romel Davis on 03-13-2024 WBC (Bld) [#/Vol] 6.5 10*3/uL 4.1-10.5 [facility] pH Auto test strip (U)Ordere d By: Romel Davis on 03-13-2024 pH (U) 7.0 [pH] 5.0-9.0 [facility] Carbon dioxide, total [Moles /volume] in Serum or PlasmaOrdered By: Zac Muniz on 01-11-2024 CO2 [Moles/Vol] 22.4 mmol/L 21.0-31.0 [facility] Chloride [Moles/volume] in S ace or PlasmaOrdered By: Zac Muniz on 01-11-2024 Chloride [Moles/Vol] 104 mmol/L 98-107 [facility] Potassium [Moles/volume] in Serum or PlasmaOrdered By: Zac Muniz on 01-11-2024 Potassium [Moles/Vol] 4.4 mmol/L 3.5-5.1 [facility] Serum or plasma anion gap de terminationOrdered By: Zac Muniz on 01-11-2024 Anion gap [Moles/Vol] 13.0 mmol/L 6.0-15.0 [facility] Sodium [Moles/volume] in Ser um or PlasmaOrdered By: Zac Muniz on 01-11-2024 Sodium [Moles/Vol] 135 mmol/L 136-145 [facility] Alanine aminotransferase [En zymatic activity/volume] in Serum or PlasmaOrdered By: Edenilson Reinoso on 01-03-2024 ALT [Catalytic activity/Vol] 43 U/L 7-52 [facility] Albumin [Mass/volume] in Ser um or Plasma by Bromocresol green (BCG) dye binding methoOrdered By: Edenilson Reinoso on 01-03-2024 Albumin BCG dye [Mass/Vol] 4.6 g/dL 3.5-5.7 [facility] Alkaline phosphatase [Enzyma tic activity/volume] in Serum or PlasmaOrdered By: Edenilson Reinoso on 01-03-2024 ALP [Catalytic activity/Vol] 78 U/L 34-104 [facility] Aspartate aminotransferase [ Enzymatic activity/volume] in Serum or PlasmaOrdered By: Edenilson Reinoso on 01-03-2024 AST [Catalytic activity/Vol] 28 U/L 13-39 [facility] Automated erythrocytes count in urine sediment (number/area)Ordered By: Edenilson Reinoso on 01-03-2024 RBC Auto (Urine sed) [#/Area] 3-4 [HPF] 0-4 [facility] Automated leukocytes count i n urine sediment (number/area)Ordered By: Edenilson Reinoso on 01-03-2024 WBC Auto (Urine sed) [#/Area] 3-4 [HPF] 0-4 [facility] Basophils Auto (Bld) [#/Vol] Ordered By: Edenilson Reinoso on 01-03-2024 Basophils (Bld) [#/Vol] 0.0 10*3/uL 0.0-0.2 [facility] Basophils/100 WBC Auto (Bld) Ordered By: Edenilson Reinoso on 01-03-2024 Basophils/100 WBC (Bld) 0.2 % . [facility] Bilirubin Test strip Ql (U)O rdered By: Edenilson Reinoso on 01-03-2024 Bilirubin Ql (U) Negative Negative [facility] Bilirubin.total [Mass/volume ] in Serum or PlasmaOrdered By: Edenilson Reinoso on 01-03-2024 Bilirubin [Mass/Vol] 0.6 mg/dL 0.3-1.0 [facility] Calcium [Mass/volume] in Ser um or PlasmaOrdered By: Edenilson Reinoso on 01-03-2024 Calcium [Mass/Vol] 9.3 mg/dL 8.6-10.3 [facility] Carbon dioxide, total [Moles /volume] in Serum or PlasmaOrdered By: Edenilson Reinoso on 01-03-2024 CO2 [Moles/Vol] 20.7 mmol/L 21.0-31.0 [facility] Chloride [Moles/volume] in S ace or PlasmaOrdered By: Edenilson Reinoso on 01-03-2024 Chloride [Moles/Vol] 106 mmol/L 98-107 [facility] Color Auto (U)Ordered By: Chen Reinoso on 01-03-2024 Color (U) Dark yellow Yellow [facility] Creatinine [Mass/volume] in Serum or PlasmaOrdered By: Edenilson Reinoso on 01-03-2024 Creatinine [Mass/Vol] 1.14 mg/dL 0.70-1.30 [facility] Eosinophils Auto (Bld) [#/Vo l]Ordered By: Edenilson Reinoso on 01-03-2024 Eosinophils (Bld) [#/Vol] 0.0 10*3/uL 0.0-0.45 [facility] Eosinophils/100 WBC Auto (Bl d)Ordered By: Edenilson Reinoso on 01-03-2024 Eosinophils/100 WBC (Bld) 0.3 % . [facility] Erythrocyte distribution wid th Auto (RBC) [Ratio]Ordered By: Edenilson Reinoso on 01-03-2024 Erythrocyte distribution width (RBC) [Ratio] 14.7 % 12.0-14.8 [facility] Globulin Calc (S) [Mass/Vol] Ordered By: Edenilson Reinoso on 01-03-2024 Globulin (S) [Mass/Vol] 2.4 g/dL [facility] Glucose [Mass/volume] in Ser um or PlasmaOrdered By: Edenilson Reinoso on 01-03-2024 Glucose [Mass/Vol] 148 mg/dL 70-100 [facility] Comment on above: ADA recommended refe rence rangeRandom Glucose Reference Range is dependent on time and content of last meal. Glucose of more than 200 mg/dL in a nonstressed, ambulatory subject supports the diagnosis of Diabetes Mellitus. Hematocrit Auto (Bld) [Volum e fraction]Ordered By: Edenilson Reinoso on 01-03-2024 Hematocrit (Bld) [Volume fraction] 49.3 % 38.8-50.0 [facility] Hemoglobin [Mass/volume] in BloodOrdered By: Edenilson Reinoso on 01-03-2024 Hemoglobin (Bld) [Mass/Vol] 16.6 g/dL 13.0-17.0 [facility] Ketones Auto test strip (U) [Mass/Vol]Ordered By: Edenilson Reinoso on 01-03-2024 Ketones (U) [Mass/Vol] Trace Negative [facility] Laboratory - UrinalysisOrder ed By: Edenilson Reinoso on 02-13-2024 Hyaline casts LM Ql (Urine sed) 0-8 [LPF] 0-8 [facility] Leukocytes [#/volume] correc nat for nucleated erythrocytes in Blood by Automated counOrdered By: Edenilson Reinoso on 01-03-2024 WBC corrected for nucl RBC Auto (Bld) [#/Vol] 16.9 10*3/uL 4.1-10.5 [facility] Lymphocytes Auto (Bld) [#/Vo l]Ordered By: Edenilson Reinoso on 01-03-2024 Lymphocytes (Bld) [#/Vol] 0.8 10*3/uL 1.00-4.8 [facility] Lymphocytes/100 WBC Auto (Bl d)Ordered By: Edenilson Reinoso on 01-03-2024 Lymphocytes/100 WBC (Bld) 4.8 % . [facility] MCH Auto (RBC) [Entitic mass ]Ordered By: Edenilson Reinoso on 01-03-2024 MCH (RBC) [Entitic mass] 30.1 pg 27.5-35.2 [facility] MCHC Auto (RBC) [Mass/Vol]Or dered By: Edenilson Reinoso on 01-03-2024 MCHC (RBC) [Mass/Vol] 33.7 g/dL 32.5-35.6 [facility] MCV Auto (RBC) [Entitic vol] Ordered By: Edenilson Reinoso on 01-03-2024 MCV (RBC) [Entitic vol] 89.3 fL 83.5-101 [facility] Monocyte distribution width [Entitic volume] in Blood by AutomatedOrdered By: Edenilson Reinoso on 01-03-2024 Monocyte distribution width Auto (Bld) [Entitic vol] 20.70 % 0.00-20.00 [facility] Comment on above: For adults in ED, MD W > 20.0 may be associated with a higher risk of sepsis during the first 12 hrs of hospital admission Monocytes Auto (Bld) [#/Vol] Ordered By: Edenilson Reinoso on 01-03-2024 Monocytes (Bld) [#/Vol] 1.1 10*3/uL 0.0-0.8 [facility] Monocytes/100 WBC Auto (Bld) Ordered By: Edenilson Reinoso on 01-03-2024 Monocytes/100 WBC (Bld) 6.7 % . [facility] Neutrophils Auto (Bld) [#/Vo l]Ordered By: Edenilson Reinoso on 01-03-2024 Neutrophils (Bld) [#/Vol] 14.9 10*3/uL 1.8-7.7 [facility] Neutrophils/100 WBC Auto (Bl d)Ordered By: Edenilson Reinoso on 01-03-2024 Neutrophils/100 WBC (Bld) 88.0 % . [facility] Nitrite Test strip Ql (U)Ord ered By: Edenilson Reinoso on 01-03-2024 Nitrite Ql (U) Negative Negative [facility] No Panel InformationOrdered By: Edenilson Reinoso on 01-03-2024 Estimated GFR (CKD-EPI) > 60.0 mL/Min [facility] Creatinine Clearance (Chem 73.17 [facility] Nucleated erythrocytes [Pres ence] in Blood by Automated countOrdered By: Edenilson Reinoso on 01-03-2024 Nucleated RBC Auto Ql (Bld) 0.3 /100{WBC} 0-0.5 [facility] Platelet mean volume Auto (B ld) [Entitic vol]Ordered By: Edenilson Reinoso on 01-03-2024 Platelet mean volume (Bld) [Entitic vol] 8.5 fL 6.6-10.1 [facility] Platelets Auto (Bld) [#/Vol] Ordered By: Edenilson Reinoso on 01-03-2024 Platelets (Bld) [#/Vol] 229 10*3/uL 150-450 [facility] Potassium [Moles/volume] in Serum or PlasmaOrdered By: Edenilson Reinoso on 01-03-2024 Potassium [Moles/Vol] 4.4 mmol/L 3.5-5.1 [facility] Protein Auto test strip (U) [Mass/Vol]Ordered By: Edenilson Reinoso on 01-03-2024 Protein (U) [Mass/Vol] Trace mg/dL Negative [facility] Protein [Mass/volume] in Ser um or PlasmaOrdered By: Edenilson Reinoso on 01-03-2024 Protein [Mass/Vol] 7.0 g/dL 6.4-8.9 [facility] RBC Auto (Bld) [#/Vol]Ordere d By: Edenilson Reinoso on 01-03-2024 RBC (Bld) [#/Vol] 5.52 10*6/uL 3.90-5.60 [facility] Serum or plasma albumin/glob ulin mass ratioOrdered By: Edenilson Reinoso on 01-03-2024 Albumin/Globulin [Mass ratio] 1.9 {ratio} [facility] Serum or plasma anion gap de terminationOrdered By: Edenilson Reinoso on 01-03-2024 Anion gap [Moles/Vol] 15.7 mmol/L 6.0-15.0 [facility] Sodium [Moles/volume] in Ser um or PlasmaOrdered By: Edenilson Reinoso on 01-03-2024 Sodium [Moles/Vol] 138 mmol/L 136-145 [facility] Specific gravity Auto test s trip (U) [Rel density]Ordered By: Edenilson Reinoso on 01-03-2024 Specific gravity (U) [Rel density] 1.034 1.001-1.03 0 [facility] Squamous epithelial cells de tection in urine sediment by light microscopyOrdered By: Edenilson Reinoso on 01-03-2024 Epithelial cells.squamous LM Ql (Urine sed) 0-1 [HPF] 0-2 [facility] Troponin I.cardiac [Mass/vol ume] in Serum or Plasma by Detection limit <= 0.01 ng/Ordered By: Edenilson Reinoso on 01-03-2024 Troponin I.cardiac DL <= 0.01 ng/mL [Mass/Vol] 7.2 pg/mL 0.0-20.0 [facility] Urea nitrogen [Mass/volume] in Serum or PlasmaOrdered By: Edenilson Reinoso on 01-03-2024 Urea nitrogen [Mass/Vol] 21 mg/dL 7-25 [facility] Urine bacteria detection by automated methodOrdered By: Edenilson Reinoso on 01-03-2024 Bacteria Auto Ql (U) None seen None Seen [facility] Urine clarity by refractomet ry automatedOrdered By: Edenilson Reinoso on 01-03-2024 Clarity Refractometry automated (U) Cloudy Clear [facility] Urine glucose measurement by automated test strip (mass/volume)Ordered By: Edenilson Reinoso on 01-03-2024 Glucose Auto test strip (U) [Mass/Vol] Normal mg/dL Normal [facility] Urine hemoglobin detection b y automated test stripOrdered By: Edenilson Reinoso on 01-03-2024 Hemoglobin Auto test strip Ql (U) Negative Negative [facility] Urine leukocyte esterase det ection by automated test stripOrdered By: Edenilson Reinoso on 01-03-2024 Leukocyte esterase Auto test strip Ql (U) Negative Negative [facility] Urobilinogen Auto test strip (U) [Mass/Vol]Ordered By: Edenilson Reinoso on 01-03-2024 Urobilinogen (U) [Mass/Vol] Normal mg/dL Normal [facility] WBC Auto (Bld) [#/Vol]Ordere d By: Edenilson Reinoso on 01-03-2024 WBC (Bld) [#/Vol] 16.9 10*3/uL 4.1-10.5 [facility] pH Auto test strip (U)Ordere d By: Edenilson Reinoso on 01-03-2024 pH (U) 5.0 [pH] 5.0-9.0 [facility] COMPREHENSIVE METABOLIC PANE Vivek 12-14-2023 Albumin [Mass/Vol] 4.5 g/dL Normal 3.2-5.3 [facility] Comment on above: Performed By: #### Dannie MALDONADO [id number] #### [facility] ([id number]) [address], [address] [place] [address] ALP [Catalytic activity/Vol] 83 U/L Normal 39-130 [facility] Comment on above: Performed By: #### Dannie MALDONADO [id number] #### [facility] ([id number]) [address], [address] [place] [address] ALT [Catalytic activity/Vol] 25 U/L Normal 0-40 [facility] Comment on above: Performed By: #### Dannie MALDONADO, [id number] #### [facility] ([id number]) [address], [address] [place] [address] Anion gap [Moles/Vol] 11 mmol/L Normal 5-15 [facility] Comment on above: Performed By: #### Dannie MALDONADO [id number] #### [facility] ([id number]) [address] [place] [address] AST [Catalytic activity/Vol] 18 U/L Normal 0-41 [facility] Comment on above: Performed By: #### Dannie MALDONADO, [id number] #### [facility] ([id number]) [address], [address] [place] [address] Bilirubin [Mass/Vol] 0.8 mg/dL Normal 0.3-1.2 [facility] Comment on above: Performed By: #### Dannie MALDONADO, [id number] #### [facility] ([id number]) [address], [address] [place] [address] Calcium [Mass/Vol] 9.1 mg/dL Normal 8.5-10.5 [facility] Comment on above: Performed By: #### Dannie MALDONADO, 90721-1 #### [facility] ([id number]) [address], [address] [place] [address] Chloride [Moles/Vol] 105 mmol/L Normal 98-109 [facility] Comment on above: Performed By: #### Dannie MALDONADO, [id number] #### [facility] ([id number]) [address], [address] [place] [address] CO2 [Moles/Vol] 23 mmol/L Normal 22-32 [facility] Comment on above: Performed By: #### Dannie MALDONADO, [id number] #### [facility] ([id number]) [address], [address] [place] [address] Creatinine [Mass/Vol] 0.89 mg/dL Normal 0.60-1.30 [facility] Comment on above: Result Comment: METH OD TRACEABLE TO IDMS STANDARD Performed By: #### Dannie MALDONADO, [id number] #### [facility] ([id number]) [address] [place] [address] eGFR (CKD-EPI) NON-RACE DEPENDENT >90 Normal >59 [facility] Comment on above: Result Comment: Reported eGFR is based on the CKD-EPI 2020 equation that does not use a race coefficient. Performed By: #### Dannie MALDONADO, [id number] #### [facility] ([id number]) [address], [address] [place] [address] Glucose [Mass/Vol] 96 mg/dL Normal 65-99 [facility] Comment on above: Performed By: #### Dnanie MALDONADO, 52319-7 #### [facility] ([id number]) [address], [address] [place] [address] Potassium [Moles/Vol] 4.0 mmol/L Normal 3.5-5.0 [facility] Comment on above: Performed By: #### Dannie MALDONADO, 64370-8 #### [facility] ([id number]) [address], [address] [place] [address] Protein [Mass/Vol] 7.1 g/dL Normal 6.0-8.0 [facility] Comment on above: Performed By: #### Dannie MALDONADO, [id number] #### [facility] ([id number]) [address], [address] [place] [address] Sodium [Moles/Vol] 139 mmol/L Normal 134-146 [facility] Comment on above: Performed By: #### Dannie MALDONADO, 60730-4 #### [facility] ([id number]) [address], [address] [place] [address] Urea nitrogen [Mass/Vol] 25 mg/dL Normal 5-27 [facility] Comment on above: Performed By: #### Dannie MALDONADO, 66374-4 #### [facility] ([id number]) [address], [address] [place] [address] Comprehensive metabolic pane vivek 12-14-2023 Albumin [Mass/Vol] 4.5 g/dL 3.2 - 5.3 g/dL [facility] ALP [Catalytic activity/Vol] 83 U/L 39 - 130 U/L [facility] ALT No additional P-5'-P [Catalytic activity/Vol] 25 U/L 0 - 40 U/L [facility] Anion gap [Moles/Vol] 11 mmol/L 5 - 15 mmol/L [facility] AST [Catalytic activity/Vol] 18 U/L 0 - 41 U/L [facility] Bilirubin [Mass/Vol] 0.8 mg/dL 0.3 - 1 .2 mg/dL [facility] Calcium [Mass/Vol] 9.1 mg/dL 8.5 - 10. 5 mg/dL [facility] Chloride [Moles/Vol] 105 mmol/L 98 - 10 9 mmol/L [facility] CO2 [Moles/Vol] 23 mmol/L 22 - 32 mmol/L [facility] Creatinine [Mass/Vol] 0.89 mg/dL 0.60 - 1.30 mg/dL [facility] Comment on above: METHOD TRACEABLE TO [facility] STANDARD eGFR (CKD-EPI)non-race dependent - PINF [facility] Comment on above: Reported eGFR is based on the CKD-EPI 2020 equation that does not use a race coefficient. Glucose [Mass/Vol] 96 mg/dL 65 - 99 mg/dL [facility] Potassium [Moles/Vol] 4.0 mmol/L 3.5 - 5.0 mmol/L [facility] Protein [Mass/Vol] 7.1 g/dL 6.0 - 8.0 g/dL [facility] Sodium [Moles/Vol] 139 mmol/L 134 - 146 mmol/L [facility] Urea nitrogen [Mass/Vol] 25 mg/dL 5 - 27 mg/dL [facility] Lipid 1996 panelon 4 Cholesterol [Mass/Vol] 124 mg/dL Low 150 - 200 mg/dL [facility] Cholesterol in HDL [Mass/Vol] 46 mg/dL 39 - PINF mg/dL [facility] Comment on above: HDL <40 mg/dL - High Risk HDL > or = 40mg/dL- Desirable HDL >60 mg/dL - Negative Risk Cholesterol in LDL [Mass/Vol] 57 mg/dL NINF - 130 mg/dL [facility] Comment on above: LDL <100 mg/dL - Desirable LDL >160 mg/dL - High Risk Cholesterol in VLDL [Mass/Vol] 21 mg/dL 0 - 30 mg/dL [facility] Cholesterol.total/Chol esterol in HDL [Mass ratio] 2.7 {ratio} 1.0 - 5.0 [facility] Interpretation and review of laboratory results Abnormal [facility] Triglyceride [Mass/Vol] 103 mg/dL 27 - 150 mg/dL [facility] Cholesterol [Mass/Vol] 124 mg/dL Low 150-200 [facility] Comment on above: Performed By: #### Dannie MALDONADO, 69479-7 #### [facility] ([id number]) [facility], [address] [place] [address] Cholesterol in HDL [Mass/Vol] 46 mg/dL Normal >39 [facility] Comment on above: Result Comment: HDL <40 mg/dL - High Risk HDL > or = 40mg/dL- Desirable HDL >60 mg/dL - Negative Risk Performed By: #### Dannie MALDONADO, 90742-9 #### [facility] ([id number]) [address] [place] [address] Cholesterol in LDL [Mass/Vol] 57 mg/dL Normal <130 [facility] Comment on above: Result Comment: LDL <100 mg/dL - Desirable LDL >160 mg/dL - High Risk Performed By: #### C ERICA, 79851-1 #### [facility] ([id number]) [address] [place] [address] Cholesterol in VLDL [Mass/Vol] 21 mg/dL Normal 0-30 [facility] Comment on above: Performed By: #### Dannie MALDONADO, 34819-0 #### [facility] ([id number]) [address], [address] [place] [address] CHOLESTEROL:HDL 2.7 Normal 1.0-5.0 [facility] Comment on above: Performed By: #### Dannie MALDONADO, 61207-3 #### [facility] ([id number]) [address], [address] [place] [address] Triglyceride [Mass/Vol] 103 mg/dL Normal 27-150 [facility] Comment on above: Performed By: #### Dannie MALDONADO, 89788-6 #### [facility] ([id number]) [address] [place] [address] No Panel Informationon 12-14 [facility] Alanine aminotransferase [En zymatic activity/volume] in Serum or PlasmaOrdered By: Romel Davis on 12-08-2023 ALT [Catalytic activity/Vol] 31 U/L 7-52 [facility] Albumin [Mass/volume] in Ser um or Plasma by Bromocresol green (BCG) dye binding methoOrdered By: Romel Davis on 12-08-2023 Albumin BCG dye [Mass/Vol] 4.3 g/dL 3.5-5.7 [facility] Alkaline phosphatase [Enzyma tic activity/volume] in Serum or PlasmaOrdered By: Romel Davis on 12-08-2023 ALP [Catalytic activity/Vol] 80 U/L 34-104 [facility] Aspartate aminotransferase [ Enzymatic activity/volume] in Serum or PlasmaOrdered By: Romel Davis on 12-08-2023 AST [Catalytic activity/Vol] 19 U/L 13-39 [facility] Automated erythrocytes count in urine sediment (number/area)Ordered By: Romel Davis on 12-08-2023 RBC Auto (Urine sed) [#/Area] 1-2 [HPF] 0-4 [facility] Automated leukocytes count i n urine sediment (number/area)Ordered By: Romel Davis on 12-08-2023 WBC Auto (Urine sed) [#/Area] 0-1 [HPF] 0-4 [facility] Basophils Auto (Bld) [#/Vol] Ordered By: Romel Davis on 12-08-2023 Basophils (Bld) [#/Vol] 0.0 10*3/uL 0.0-0.2 [facility] Basophils/100 WBC Auto (Bld) Ordered By: Romel Davis on 12-08-2023 Basophils/100 WBC (Bld) 0.5 % . [facility] Bilirubin Auto test strip Ql (U)Ordered By: Romel Davis on 12-08-2023 Bilirubin Ql (U) Negative Negative [facility] Bilirubin.total [Mass/volume ] in Serum or PlasmaOrdered By: Romel Davis on 12-08-2023 Bilirubin [Mass/Vol] 0.6 mg/dL 0.3-1.0 [facility] Calcium [Mass/volume] in Ser um or PlasmaOrdered By: Romel Davis on 12-08-2023 Calcium [Mass/Vol] 9.4 mg/dL 8.6-10.3 [facility] Carbon dioxide, total [Moles /volume] in Serum or PlasmaOrdered By: Romel Davis on 12-08-2023 CO2 [Moles/Vol] 25.7 mmol/L 21.0-31.0 [facility] Chloride [Moles/volume] in S ace or PlasmaOrdered By: Romel Davis on 12-08-2023 Chloride [Moles/Vol] 105 mmol/L 98-107 [facility] Creatinine [Mass/volume] in Serum or PlasmaOrdered By: Romel Davis on 12-08-2023 Creatinine [Mass/Vol] 1.00 mg/dL 0.70-1.30 [facility] Eosinophils Auto (Bld) [#/Vo l]Ordered By: Romel Davis on 12-08-2023 Eosinophils (Bld) [#/Vol] 0.1 10*3/uL 0.0-0.45 [facility] Eosinophils/100 WBC Auto (Bl d)Ordered By: Romel Davis on 12-08-2023 Eosinophils/100 WBC (Bld) 1.2 % . [facility] Erythrocyte distribution wid th Auto (RBC) [Ratio]Ordered By: Romel Davis on 12-08-2023 Erythrocyte distribution width (RBC) [Ratio] 14.5 % 12.0-14.8 [facility] Erythrocyte sedimentation ra te by Photometric methodOrdered By: Romel Davis on 12-08-2023 ESR Photometric method (Bld) [Velocity] 5 mm/hr 0-19 [facility] Globulin Calc (S) [Mass/Vol] Ordered By: Romel Davis on 12-08-2023 Globulin (S) [Mass/Vol] 2.0 g/dL [facility] Glucose [Mass/volume] in Ser um or PlasmaOrdered By: Romel Davis on 12-08-2023 Glucose [Mass/Vol] 88 mg/dL 70-100 [facility] Comment on above: ADA recommended refe rence rangeRandom Glucose Reference Range is dependent on time and content of last meal. Glucose of more than 200 mg/dL in a nonstressed, ambulatory subject supports the diagnosis of Diabetes Mellitus. Hematocrit Auto (Bld) [Volum e fraction]Ordered By: Romel Davis on 12-08-2023 Hematocrit (Bld) [Volume fraction] 46.1 % 38.8-50.0 [facility] Hemoglobin [Mass/volume] in BloodOrdered By: Romel Davis on 12-08-2023 Hemoglobin (Bld) [Mass/Vol] 15.9 g/dL 13.0-17.0 [facility] Ketones Auto test strip (U) [Mass/Vol]Ordered By: Romel Davis on 12-08-2023 Ketones (U) [Mass/Vol] Negative Negative [facility] Laboratory - UrinalysisOrder ed By: Romel Davis on 12-08-2023 Hyaline casts LM Ql (Urine sed) 0-8 [LPF] 0-8 [facility] Leukocytes [#/volume] correc nat for nucleated erythrocytes in Blood by Automated counOrdered By: Romel Davis on 12-08-2023 WBC corrected for nucl RBC Auto (Bld) [#/Vol] 6.4 10*3/uL 4.1-10.5 [facility] Lymphocytes Auto (Bld) [#/Vo l]Ordered By: Romel Davis on 12-08-2023 Lymphocytes (Bld) [#/Vol] 1.0 10*3/uL 1.00-4.8 [facility] Lymphocytes/100 WBC Auto (Bl d)Ordered By: Romel Davis on 12-08-2023 Lymphocytes/100 WBC (Bld) 15.1 % . [facility] MCH Auto (RBC) [Entitic mass ]Ordered By: Romel Davis on 12-08-2023 MCH (RBC) [Entitic mass] 30.7 pg 27.5-35.2 [facility] MCHC Auto (RBC) [Mass/Vol]Or dered By: Romel Davis on 12-08-2023 MCHC (RBC) [Mass/Vol] 34.5 g/dL 32.5-35.6 [facility] MCV Auto (RBC) [Entitic vol] Ordered By: Romel Davis on 12-08-2023 MCV (RBC) [Entitic vol] 89.0 fL 83.5-101 [facility] Monocytes Auto (Bld) [#/Vol] Ordered By: Romel Davis on 12-08-2023 Monocytes (Bld) [#/Vol] 0.9 10*3/uL 0.0-0.8 [facility] Monocytes/100 WBC Auto (Bld) Ordered By: Romel Davis on 12-08-2023 Monocytes/100 WBC (Bld) 14.0 % . [facility] Neutrophils Auto (Bld) [#/Vo l]Ordered By: Romel Davis on 12-08-2023 Neutrophils (Bld) [#/Vol] 4.4 10*3/uL 1.8-7.7 [facility] Neutrophils/100 WBC Auto (Bl d)Ordered By: Romel Davis on 12-08-2023 Neutrophils/100 WBC (Bld) 69.2 % . [facility] No Panel InformationOrdered By: Romel Davis on 12-08-2023 Estimated GFR (CKD-EPI) > 60.0 mL/Min [facility] Creatinine Clearance (Chem N/A [facility] Total Complement (CH50) 58 U/mL >41 [facility] Comment on above: Age Male Female 3 [...] to determine out of range values.Performed at: [place] [id number] Director: Richy Ardon PhD, Phone: [phone] Nucleated erythrocytes [Pres ence] in Blood by Automated countOrdered By: Romel Davis on 12-08-2023 Nucleated RBC Auto Ql (Bld) 0.1 /100{WBC} 0-0.5 [facility] Platelet mean volume Auto (B ld) [Entitic vol]Ordered By: Romel Davis on 12-08-2023 Platelet mean volume (Bld) [Entitic vol] 8.7 fL 6.6-10.1 [facility] Platelets Auto (Bld) [#/Vol] Ordered By: Romel Davis on 12-08-2023 Platelets (Bld) [#/Vol] 203 10*3/uL 150-450 [facility] Potassium [Moles/volume] in Serum or PlasmaOrdered By: Romel Davis on 12-08-2023 Potassium [Moles/Vol] 4.3 mmol/L 3.5-5.1 [facility] Protein Auto test strip (U) [Mass/Vol]Ordered By: Romel Davis on 12-08-2023 Protein (U) [Mass/Vol] Negative Negative [facility] Protein [Mass/volume] in Ser um or PlasmaOrdered By: Romel Davis on 12-08-2023 Protein [Mass/Vol] 6.3 g/dL 6.4-8.9 [facility] RBC Auto (Bld) [#/Vol]Ordere d By: Romel Davis on 12-08-2023 RBC (Bld) [#/Vol] 5.18 10*6/uL 3.90-5.60 [facility] Serum or plasma albumin/glob ulin mass ratioOrdered By: Romel Davis on 12-08-2023 Albumin/Globulin [Mass ratio] 2.2 {ratio} [facility] Serum or plasma anion gap de terminationOrdered By: Romel Davis on 12-08-2023 Anion gap [Moles/Vol] 10.6 mmol/L 6.0-15.0 Fi [facility] Serum or plasma complement C 3 measurement (mass/volume)Ordered By: Romel Davis on 12-08-2023 Complement C3 [Mass/Vol] 122 mg/dL 82-167 [facility] Comment on above: Performed at: [address] Director: Richy Ardon PhD, Phone: [phone] Serum or plasma complement C 4 measurement (mass/volume)Ordered By: Romel Davis on 12-08-2023 Complement C4 [Mass/Vol] 14 mg/dL 12-38 [facility] Sodium [Moles/volume] in Ser um or PlasmaOrdered By: Romel Davis on 12-08-2023 Sodium [Moles/Vol] 137 mmol/L 136-145 [facility] Squamous epithelial cells de tection in urine sediment by light microscopyOrdered By: Romel Davis on 12-08-2023 Epithelial cells.squamous LM Ql (Urine sed) None seen [HPF] 0-2 [facility] Urea nitrogen [Mass/volume] in Serum or PlasmaOrdered By: Romel Davis on 12-08-2023 Urea nitrogen [Mass/Vol] 27 mg/dL 7-25 [facility] Urine appearanceOrdered By: Romel Davis on 12-08-2023 Appearance (U) Clear Clear [facility] Urine bacteria detection by automated methodOrdered By: Romel Davis on 12-08-2023 Bacteria Auto Ql (U) None seen None Seen [facility] Urine colorOrdered By: Manuel Davis on 12-08-2023 Color (U) Yellow Yellow [facility] Urine glucose measurement by automated test strip (mass/volume)Ordered By: Romel Davis on 12-08-2023 Glucose Auto test strip (U) [Mass/Vol] Normal mg/dL Normal [facility] Urine hemoglobin detection b y automated test stripOrdered By: Romel Davis on 12-08-2023 Hemoglobin Auto test strip Ql (U) Negative Negative [facility] Urine leukocyte esterase det ection by automated test stripOrdered By: Romel Davis on 12-08-2023 Leukocyte esterase Auto test strip Ql (U) Negative Negative [facility] Urine nitrite detection by a utomated test stripOrdered By: Romel Davis on 12-08-2023 Nitrite Auto test strip Ql (U) Negative Negative [facility] Urobilinogen Auto test strip (U) [Mass/Vol]Ordered By: Romel Davis on 12-08-2023 Urobilinogen (U) [Mass/Vol] Normal mg/dL Normal [facility] WBC Auto (Bld) [#/Vol]Ordere d By: Romel Davis on 12-08-2023 WBC (Bld) [#/Vol] 6.4 10*3/uL 4.1-10.5 [facility] pH Auto test strip (U)Ordere d By: Romel Davis on 12-08-2023 pH (U) 1.025 [pH] 1.001-1.03 0 [facility] pH (U) 7.0 [pH] 5.0-9.0 [facility] Carbon dioxide, total [Moles /volume] in Serum or PlasmaOrdered By: Zac Muniz on 10-20-2023 CO2 [Moles/Vol] 23.8 mmol/L 21.0-31.0 [facility] Chloride [Moles/volume] in S ace or PlasmaOrdered By: Zac Muniz on 10-20-2023 Chloride [Moles/Vol] 107 mmol/L 98-107 [facility] Potassium [Moles/volume] in Serum or PlasmaOrdered By: Zac Muniz on 10-20-2023 Potassium [Moles/Vol] 4.1 mmol/L 3.5-5.1 [facility] Serum or plasma anion gap de terminationOrdered By: Zac Muniz on 10-20-2023 Anion gap [Moles/Vol] 12.3 mmol/L 6.0-15.0 [facility] Sodium [Moles/volume] in Ser um or PlasmaOrdered By: Zac Muniz on 10-20-2023 Sodium [Moles/Vol] 139 mmol/L 136-145 [facility] Alanine aminotransferase [En zymatic activity/volume] in Serum or PlasmaOrdered By: Romel Davis on 09-05-2023 ALT [Catalytic activity/Vol] 29 U/L 7-52 [facility] Albumin [Mass/volume] in Ser um or Plasma by Bromocresol green (BCG) dye binding methoOrdered By: Romel Davis on 09-05-2023 Albumin BCG dye [Mass/Vol] 4.2 g/dL 3.5-5.7 [facility] Alkaline phosphatase [Enzyma tic activity/volume] in Serum or PlasmaOrdered By: Romel Davis on 09-05-2023 ALP [Catalytic activity/Vol] 83 U/L 34-104 [facility] Aspartate aminotransferase [ Enzymatic activity/volume] in Serum or PlasmaOrdered By: Romel Davis on 09-05-2023 AST [Catalytic activity/Vol] 19 U/L 13-39 [facility] Automated erythrocytes count in urine sediment (number/area)Ordered By: Romel Davis on 09-05-2023 RBC Auto (Urine sed) [#/Area] 0-1 [HPF] 0-4 [facility] Automated leukocytes count i n urine sediment (number/area)Ordered By: Romel Davis on 09-05-2023 WBC Auto (Urine sed) [#/Area] 0-1 [HPF] 0-4 [facility] Basophils Auto (Bld) [#/Vol] Ordered By: Romel Davis on 09-05-2023 Basophils (Bld) [#/Vol] 0.0 10*3/uL 0.0-0.2 [facility] Basophils/100 WBC Auto (Bld) Ordered By: Romel Davis on 09-05-2023 Basophils/100 WBC (Bld) 0.6 % . [facility] Bilirubin Test strip Ql (U)O rdered By: Romel Davis on 09-05-2023 Bilirubin Ql (U) Negative Negative [facility] Bilirubin.total [Mass/volume ] in Serum or PlasmaOrdered By: Romel Davis on 09-05-2023 Bilirubin [Mass/Vol] 0.8 mg/dL 0.3-1.0 [facility] Calcium [Mass/volume] in Ser um or PlasmaOrdered By: Romel Davis on 09-05-2023 Calcium [Mass/Vol] 9.2 mg/dL 8.6-10.3 [facility] Carbon dioxide, total [Moles /volume] in Serum or PlasmaOrdered By: Romel Davis on 09-05-2023 CO2 [Moles/Vol] 27.9 mmol/L 21.0-31.0 [facility] Chloride [Moles/volume] in S ace or PlasmaOrdered By: Romel Davis on 09-05-2023 Chloride [Moles/Vol] 107 mmol/L 98-107 [facility] Color Auto (U)Ordered By: Bridgett Davis on 09-05-2023 Color (U) Yellow Yellow [facility] Creatinine [Mass/volume] in Serum or PlasmaOrdered By: Romel Davis on 09-05-2023 Creatinine [Mass/Vol] 0.88 mg/dL 0.70-1.30 [facility] Eosinophils Auto (Bld) [#/Vo l]Ordered By: Romel Davis on 09-05-2023 Eosinophils (Bld) [#/Vol] 0.1 10*3/uL 0.0-0.45 [facility] Eosinophils/100 WBC Auto (Bl d)Ordered By: Romel Davis on 09-05-2023 Eosinophils/100 WBC (Bld) 0.9 % . [facility] Erythrocyte distribution wid th Auto (RBC) [Ratio]Ordered By: Romel Davis on 09-05-2023 Erythrocyte distribution width (RBC) [Ratio] 14.1 % 12.0-14.8 [facility] Erythrocyte sedimentation ra te by Photometric methodOrdered By: Romel Davis on 09-05-2023 ESR Photometric method (Bld) [Velocity] 3 mm/hr 0-19 [facility] Globulin Calc (S) [Mass/Vol] Ordered By: Romel Davis on 09-05-2023 Globulin (S) [Mass/Vol] 1.9 g/dL [facility] Glucose [Mass/volume] in Ser um or PlasmaOrdered By: Romel Davis on 09-05-2023 Glucose [Mass/Vol] 75 mg/dL 70-100 [facility] Comment on above: ADA recommended refe rence rangeRandom Glucose Reference Range is dependent on time and content of last meal. Glucose of more than 200 mg/dL in a nonstressed, ambulatory subject supports the diagnosis of Diabetes Mellitus. Hematocrit Auto (Bld) [Volum e fraction]Ordered By: Romel Davis on 09-05-2023 Hematocrit (Bld) [Volume fraction] 44.5 % 38.8-50.0 [facility] Hemoglobin [Mass/volume] in BloodOrdered By: Romel Davis on 09-05-2023 Hemoglobin (Bld) [Mass/Vol] 15.2 g/dL 13.0-17.0 [facility] Ketones Auto test strip (U) [Mass/Vol]Ordered By: Romel Davis on 09-05-2023 Ketones (U) [Mass/Vol] Trace Negative [facility] Laboratory - UrinalysisOrder ed By: Romel Davis on 09-05-2023 Hyaline casts LM Ql (Urine sed) None seen [LPF] 0-8 [facility] Leukocytes [#/volume] correc nat for nucleated erythrocytes in Blood by Automated counOrdered By: Romel Davis on 09-05-2023 WBC corrected for nucl RBC Auto (Bld) [#/Vol] 5.9 10*3/uL 4.1-10.5 [facility] Lymphocytes Auto (Bld) [#/Vo l]Ordered By: Romel Davis on 09-05-2023 Lymphocytes (Bld) [#/Vol] 1.1 10*3/uL 1.00-4.8 [facility] Lymphocytes/100 WBC Auto (Bl d)Ordered By: Romel Davis on 09-05-2023 Lymphocytes/100 WBC (Bld) 17.7 % . [facility] MCH Auto (RBC) [Entitic mass ]Ordered By: Romel Davis on 09-05-2023 MCH (RBC) [Entitic mass] 30.7 pg 27.5-35.2 [facility] MCHC Auto (RBC) [Mass/Vol]Or dered By: Romel Davis on 09-05-2023 MCHC (RBC) [Mass/Vol] 34.2 g/dL 32.5-35.6 [facility] MCV Auto (RBC) [Entitic vol] Ordered By: Romel Davis on 09-05-2023 MCV (RBC) [Entitic vol] 89.9 fL 83.5-101 [facility] Monocytes Auto (Bld) [#/Vol] Ordered By: Romel Davis on 09-05-2023 Monocytes (Bld) [#/Vol] 0.6 10*3/uL 0.0-0.8 [facility] Monocytes/100 WBC Auto (Bld) Ordered By: Roeml Davis on 09-05-2023 Monocytes/100 WBC (Bld) 10.3 % . [facility] Neutrophils Auto (Bld) [#/Vo l]Ordered By: Romel Davis on 09-05-2023 Neutrophils (Bld) [#/Vol] 4.2 10*3/uL 1.8-7.7 [facility] Neutrophils/100 WBC Auto (Bl d)Ordered By: Romel Davis on 09-05-2023 Neutrophils/100 WBC (Bld) 70.5 % . [facility] Nitrite Test strip Ql (U)Ord ered By: Romel Davis on 09-05-2023 Nitrite Ql (U) Negative Negative [facility] No Panel InformationOrdered By: Romel Davis on 09-05-2023 Estimated GFR (CKD-EPI) > 60.0 mL/Min [facility] Creatinine Clearance (Chem N/A [facility] Total Complement (CH50) 57 U/mL >41 [facility] Comment on above: Age Male Female 3 [...] to determine out of range values.Performed at: [employer] [facility] [id number] Director: Richy Ardon PhD, Phone: [phone] Nucleated erythrocytes [Pres ence] in Blood by Automated countOrdered By: Romel Davis on 09-05-2023 Nucleated RBC Auto Ql (Bld) 0.1 /100{WBC} 0-0.5 [facility] Platelet mean volume Auto (B ld) [Entitic vol]Ordered By: Romel Davis on 09-05-2023 Platelet mean volume (Bld) [Entitic vol] 8.9 fL 6.6-10.1 [facility] Platelets Auto (Bld) [#/Vol] Ordered By: Romel Davis on 09-05-2023 Platelets (Bld) [#/Vol] 175 10*3/uL 150-450 [facility] Potassium [Moles/volume] in Serum or PlasmaOrdered By: Romel Davis on 09-05-2023 Potassium [Moles/Vol] 4.1 mmol/L 3.5-5.1 [facility] Protein Auto test strip (U) [Mass/Vol]Ordered By: Romel Davis on 09-05-2023 Protein (U) [Mass/Vol] Negative Negative [facility] Protein [Mass/volume] in Ser um or PlasmaOrdered By: Romel Davis on 09-05-2023 Protein [Mass/Vol] 6.1 g/dL 6.4-8.9 [facility] RBC Auto (Bld) [#/Vol]Ordere d By: Romel Davis on 09-05-2023 RBC (Bld) [#/Vol] 4.96 10*6/uL 3.90-5.60 [facility] Serum or plasma albumin/glob ulin mass ratioOrdered By: Romel Davis on 09-05-2023 Albumin/Globulin [Mass ratio] 2.2 {ratio} [facility] Serum or plasma anion gap de terminationOrdered By: Romel Davis on 09-05-2023 Anion gap [Moles/Vol] 10.2 mmol/L 6.0-15.0 [facility] Serum or plasma complement C 3 measurement (mass/volume)Ordered By: Romel Davis on 09-05-2023 Complement C3 [Mass/Vol] 124 mg/dL 82-167 [facility] Comment on above: Performed at: [address] [id number] Director: Richy Ardon PhD, Phone: [phone] Serum or plasma complement C 4 measurement (mass/volume)Ordered By: Romel Davis on 09-05-2023 Complement C4 [Mass/Vol] 15 mg/dL 12-38 [facility] Sodium [Moles/volume] in Ser um or PlasmaOrdered By: Romel Davis on 09-05-2023 Sodium [Moles/Vol] 141 mmol/L 136-145 [facility] Specific gravity Auto test s trip (U) [Rel density]Ordered By: Romel Davis on 09-05-2023 Specific gravity (U) [Rel density] 1.025 1.001-1.03 0 [facility] Squamous epithelial cells de tection in urine sediment by light microscopyOrdered By: Romel Davis on 09-05-2023 Epithelial cells.squamous LM Ql (Urine sed) None seen [HPF] 0-2 [facility] Urea nitrogen [Mass/volume] in Serum or PlasmaOrdered By: Romel Davis on 09-05-2023 Urea nitrogen [Mass/Vol] 19 mg/dL 7-25 [facility] Urine bacteria detection by automated methodOrdered By: Romel Davis on 09-05-2023 Bacteria Auto Ql (U) None seen None Seen [facility] Urine clarity by refractomet ry automatedOrdered By: Romel Davis on 09-05-2023 Clarity Refractometry automated (U) Clear Clear [facility] Urine glucose measurement by automated test strip (mass/volume)Ordered By: Romel Davis on 09-05-2023 Glucose Auto test strip (U) [Mass/Vol] Normal mg/dL Normal [facility] Urine hemoglobin detection b y automated test stripOrdered By: Romel Davis on 09-05-2023 Hemoglobin Auto test strip Ql (U) Negative Negative [facility] Urine leukocyte esterase det ection by automated test stripOrdered By: Romel Davis on 09-05-2023 Leukocyte esterase Auto test strip Ql (U) Negative Negative [facility] Urobilinogen Auto test strip (U) [Mass/Vol]Ordered By: Romel Davis on 09-05-2023 Urobilinogen (U) [Mass/Vol] Normal mg/dL Normal [facility] WBC Auto (Bld) [#/Vol]Ordere d By: Romel Davis on 09-05-2023 WBC (Bld) [#/Vol] 5.9 10*3/uL 4.1-10.5 [facility] pH Auto test strip (U)Ordere d By: Romel Davis on 09-05-2023 pH (U) 5.5 [pH] 5.0-9.0 [facility] 24 hour urine sodium measure ment (moles/time)Ordered By: Zac Muniz on 08-16-2023 Sodium (24H U) [Moles/Time] 181 mmol/24 40-220 [facility] 24 hour urine uric acid ophelia urement (mass/time)Ordered By: Zac Muniz on 08-16-2023 Urate (24H U) [Mass/Time] 674.9 mg/24 hr 182.4-936. 8 [facility] Comment on above: Performed at: [address] [id number] Director: Richy Ardon PhD, Phone: [phone] CT biopsyOrdered By: Zac Muniz on 08-16-2023 CT biopsy 24 Hours [facility] Calcium [Mass/time] in 24 ho ur UrineOrdered By: Zac Muniz on 08-16-2023 Calcium (24H U) [Mass/Time] 98 mg/24 hr 0-320 [facility] Calcium [Mass/volume] in 24 hour UrineOrdered By: Zac Muniz on 08-16-2023 Calcium (24H U) [Mass/Vol] 3.3 mg/dL Not Estab. [facility] Calcium [Mass/volume] in Ser um or PlasmaOrdered By: Zac Muniz on 08-16-2023 Calcium [Mass/Vol] 9.2 mg/dL 8.6-10.3 [facility] Carbon dioxide, total [Moles /volume] in Serum or PlasmaOrdered By: Zac Muniz on 08-16-2023 CO2 [Moles/Vol] 22.4 mmol/L 21.0-31.0 [facility] Chloride [Moles/volume] in S ace or PlasmaOrdered By: Zac Muniz on 08-16-2023 Chloride [Moles/Vol] 108 mmol/L 98-107 [facility] Creatinine [Mass/volume] in Serum or PlasmaOrdered By: Zac Muniz on 08-16-2023 Creatinine [Mass/Vol] 0.88 mg/dL 0.70-1.30 [facility] Creatinine [Mass/volume] in UrineOrdered By: Zac Muniz on 08-16-2023 Creatinine (U) [Mass/Vol] 57.00 mg/dL 14.00-26.0 0 [facility] Magnesium [Mass/time] in 24 hour UrineOrdered By: Zac Muniz on 08-16-2023 Magnesium (24H U) [Mass/Time] 97.7 mg/24 hr 12.0-293.0 [facility] Magnesium [Mass/volume] in U rineOrdered By: Zac Muniz on 08-16-2023 Magnesium (U) [Mass/Vol] 3.3 mg/dL Not Estab. [facility] No Panel InformationOrdered By: Zac Muniz on 08-16-2023 Estimated GFR (CKD-EPI) > 60.0 mL/Min [facility] Creatinine Clearance (Chem N/A [facility] Urine Citric Acid 219 mg/L Undefined [facility] Comment on above: This test was develo ped and its performance characteristicsdetermined by [employer]. It has not been cleared orapproved by the Food and Drug Administration. Urine Citric Acid 24 Hour 648 mg/24 hr 320-1240 [facility] Comment on above: Performed at: [address] [id number] Director: Kaley Joaquin MD, Phone: [phone] Urine Creatinine 24 Hour 1.68 g/24 hr 1.00-2.09 [facility] Oxalate [Mass/time] in 24 ho ur UrineOrdered By: Zac Muniz on 08-16-2023 Oxalate (24H U) [Mass/Time] 18 mg/24 hr 7-44 [facility] Oxalate [Mass/volume] in Uri neOrdered By: Zac Muniz on 08-16-2023 Oxalate (U) [Mass/Vol] 6 mg/L Undefined [facility] Parathyrin.intact [Mass/volu me] in Serum or PlasmaOrdered By: Zac Muniz on 08-16-2023 Parathyrin.intact [Mass/Vol] 53.9 pg/mL 12-88 [facility] Phosphate [Mass/time] in 24 hour UrineOrdered By: Zac Muniz on 08-16-2023 Phosphate (24H U) [Mass/Time] 462 mg/24 hr 390-1425 [facility] Phosphate [Mass/volume] in U rineOrdered By: Zac Muniz on 08-16-2023 Phosphate (U) [Mass/Vol] 15.6 mg/dL Not Estab. [facility] Potassium [Moles/volume] in Serum or PlasmaOrdered By: Zac Muniz on 08-16-2023 Potassium [Moles/Vol] 4.0 mmol/L 3.5-5.1 [facility] Serum or plasma anion gap de terminationOrdered By: Zac Muniz on 08-16-2023 Anion gap [Moles/Vol] 12.6 mmol/L 6.0-15.0 [facility] Sodium [Moles/volume] in Ser um or PlasmaOrdered By: Zac Muniz on 08-16-2023 Sodium [Moles/Vol] 139 mmol/L 136-145 [facility] Sodium [Moles/volume] in Uri neOrdered By: Zac Muniz on 08-16-2023 Sodium (U) [Moles/Vol] 61.0 mmol/L F [facility] Comment on above: No reference range e stablished Urate [Mass/volume] in Serum or PlasmaOrdered By: Zac Muniz on 08-16-2023 Urate [Mass/Vol] 4.3 mg/dL 4.4-7.6 [facility] Urea nitrogen [Mass/volume] in Serum or PlasmaOrdered By: Zac Muniz on 08-16-2023 Urea nitrogen [Mass/Vol] 22 mg/dL 7-25 [facility] Urine uric acid measurement (mass/volume)Ordered By: Zac Muniz on 08-16-2023 Urate (U) [Mass/Vol] 22.8 mg/dL Not Estab. [facility] Urine volume measurementOrde red By: Zac Muniz on 08-16-2023 Specimen volume (U) 2960 ml [facility] Alanine aminotransferase [En zymatic activity/volume] in Serum or PlasmaOrdered By: Zac Muniz on 05-31-2023 ALT [Catalytic activity/Vol] 34 U/L 7-52 [facility] Albumin [Mass/volume] in Ser um or Plasma by Bromocresol green (BCG) dye binding methoOrdered By: Zac Muniz on 05-31-2023 Albumin BCG dye [Mass/Vol] 4.4 g/dL 3.5-5.7 [facility] Alkaline phosphatase [Enzyma tic activity/volume] in Serum or PlasmaOrdered By: Zac Muniz on 05-31-2023 ALP [Catalytic activity/Vol] 82 U/L 34-104 [facility] Aspartate aminotransferase [ Enzymatic activity/volume] in Serum or PlasmaOrdered By: Zac Muniz on 05-31-2023 AST [Catalytic activity/Vol] 24 U/L 13-39 [facility] Automated erythrocytes count in urine sediment (number/area)Ordered By: Christine Sanchez on 05-31-2023 RBC Auto (Urine sed) [#/Area] 1-2 [HPF] 0-4 [facility] Automated leukocytes count i n urine sediment (number/area)Ordered By: Christine Sanchez on 05-31-2023 WBC Auto (Urine sed) [#/Area] 0-1 [HPF] 0-4 [facility] Basophils Auto (Bld) [#/Vol] Ordered By: Christine Sanchez on 05-31-2023 Basophils (Bld) [#/Vol] 0.0 10*3/uL 0.0-0.2 [facility] Basophils/100 WBC Auto (Bld) Ordered By: Christine Sanchez on 05-31-2023 Basophils/100 WBC (Bld) 0.8 % . [facility] Bilirubin Test strip Ql (U)O rdered By: Christine Sanchez on 05-31-2023 Bilirubin Ql (U) Negative Negative [facility] Bilirubin.total [Mass/volume ] in Serum or PlasmaOrdered By: Zac Muniz on 05-31-2023 Bilirubin [Mass/Vol] 0.8 mg/dL 0.3-1.0 [facility] Calcium [Mass/volume] in Ser um or PlasmaOrdered By: Zac Muniz on 05-31-2023 Calcium [Mass/Vol] 9.1 mg/dL 8.6-10.3 [facility] Carbon dioxide, total [Moles /volume] in Serum or PlasmaOrdered By: Zac Muniz on 05-31-2023 CO2 [Moles/Vol] 24.0 mmol/L 21.0-31.0 [facility] Chloride [Moles/volume] in S ace or PlasmaOrdered By: Zac Muniz on 05-31-2023 Chloride [Moles/Vol] 106 mmol/L 98-107 [facility] Color Auto (U)Ordered By: Marianna Arellano on 05-31-2023 Color (U) Yellow Yellow [facility] Creatinine [Mass/volume] in Serum or PlasmaOrdered By: Zac Muniz on 05-31-2023 Creatinine [Mass/Vol] 1.05 mg/dL 0.70-1.30 [facility] Eosinophils Auto (Bld) [#/Vo l]Ordered By: Christine Sanchez on 05-31-2023 Eosinophils (Bld) [#/Vol] 0.1 10*3/uL 0.0-0.45 [facility] Eosinophils/100 WBC Auto (Bl d)Ordered By: Christine Sanchez on 05-31-2023 Eosinophils/100 WBC (Bld) 1.4 % . [facility] Erythrocyte distribution wid th Auto (RBC) [Ratio]Ordered By: Christine Sanchez on 05-31-2023 Erythrocyte distribution width (RBC) [Ratio] 14.9 % 12.0-14.8 [facility] Erythrocyte sedimentation ra te by Photometric methodOrdered By: Christine Sanchez on 05-31-2023 ESR Photometric method (Bld) [Velocity] 6 mm/hr 0-19 [facility] Globulin Calc (S) [Mass/Vol] Ordered By: Zac Muniz on 05-31-2023 Globulin (S) [Mass/Vol] 2.3 g/dL [facility] Glucose [Mass/volume] in Ser um or PlasmaOrdered By: Zac Muniz on 05-31-2023 Glucose [Mass/Vol] 82 mg/dL 70-100 [facility] Comment on above: ADA recommended refe rence rangeRandom Glucose Reference Range is dependent on time and content of last meal. Glucose of more than 200 mg/dL in a nonstressed, ambulatory subject supports the diagnosis of Diabetes Mellitus. Hematocrit Auto (Bld) [Volum e fraction]Ordered By: Christine Sanchez on 05-31-2023 Hematocrit (Bld) [Volume fraction] 43.1 % 38.8-50.0 [facility] Hemoglobin [Mass/volume] in BloodOrdered By: Christine Sanchez on 05-31-2023 Hemoglobin (Bld) [Mass/Vol] 14.9 g/dL 13.0-17.0 [facility] Ketones Auto test strip (U) [Mass/Vol]Ordered By: Christine Sanchez on 05-31-2023 Ketones (U) [Mass/Vol] Trace Negative [facility] Laboratory - UrinalysisOrder ed By: Christine Sanchez on 05-31-2023 Hyaline casts LM Ql (Urine sed) 0-8 [LPF] 0-8 [facility] Leukocytes [#/volume] correc nat for nucleated erythrocytes in Blood by Automated counOrdered By: Christine Sanchez on 05-31-2023 WBC corrected for nucl RBC Auto (Bld) [#/Vol] 5.5 10*3/uL 4.1-10.5 [facility] Lymphocytes Auto (Bld) [#/Vo l]Ordered By: Christine Sanchez on 05-31-2023 Lymphocytes (Bld) [#/Vol] 1.3 10*3/uL 1.00-4.8 [facility] Lymphocytes/100 WBC Auto (Bl d)Ordered By: Christine Sanchez on 05-31-2023 Lymphocytes/100 WBC (Bld) 24.3 % . [facility] MCH Auto (RBC) [Entitic mass ]Ordered By: Christine Sanchez on 05-31-2023 MCH (RBC) [Entitic mass] 30.8 pg 27.5-35.2 [facility] MCHC Auto (RBC) [Mass/Vol]Or dered By: Christine Sanchez on 05-31-2023 MCHC (RBC) [Mass/Vol] 34.6 g/dL 32.5-35.6 [facility] MCV Auto (RBC) [Entitic vol] Ordered By: Christine Sanchez on 05-31-2023 MCV (RBC) [Entitic vol] 89.1 fL 83.5-101 [facility] Monocytes Auto (Bld) [#/Vol] Ordered By: Christine Sanchez on 05-31-2023 Monocytes (Bld) [#/Vol] 0.7 10*3/uL 0.0-0.8 [facility] Monocytes/100 WBC Auto (Bld) Ordered By: Christine Sanchez on 05-31-2023 Monocytes/100 WBC (Bld) 12.9 % . [facility] Neutrophils Auto (Bld) [#/Vo l]Ordered By: Christine Sanchez on 05-31-2023 Neutrophils (Bld) [#/Vol] 3.3 10*3/uL 1.8-7.7 [facility] Neutrophils/100 WBC Auto (Bl d)Ordered By: Christine Sanchez on 05-31-2023 Neutrophils/100 WBC (Bld) 60.6 % . [facility] Nitrite Test strip Ql (U)Ord ered By: Christine Sanchez on 05-31-2023 Nitrite Ql (U) Negative Negative [facility] No Panel InformationOrdered By: Zac Muniz on 05-31-2023 Estimated GFR (CKD-EPI) > 60.0 mL/Min [facility] Creatinine Clearance (Chem N/A [facility] No Panel InformationOrdered By: Christine Sanchez on 05-31-2023 Total Complement (CH50) 60 U/mL >41 [facility] Comment on above: Age Male Female 3 [...] to determine out of range values.Performed at: [address] [id number] Director: Richy Ardon PhD, Phone: [phone] Nucleated erythrocytes [Pres ence] in Blood by Automated countOrdered By: Christine Sanchez on 05-31-2023 Nucleated RBC Auto Ql (Bld) 0.1 /100{WBC} 0-0.5 [facility] Platelet mean volume Auto (B ld) [Entitic vol]Ordered By: Christine Sanchez on 05-31-2023 Platelet mean volume (Bld) [Entitic vol] 8.4 fL 6.6-10.1 [facility] Platelets Auto (Bld) [#/Vol] Ordered By: Christine Sanchez on 05-31-2023 Platelets (Bld) [#/Vol] 178 10*3/uL 150-450 [facility] Potassium [Moles/volume] in Serum or PlasmaOrdered By: Zac Muniz on 05-31-2023 Potassium [Moles/Vol] 4.4 mmol/L 3.5-5.1 [facility] Protein Auto test strip (U) [Mass/Vol]Ordered By: Christine Sanchez on 05-31-2023 Protein (U) [Mass/Vol] Trace mg/dL Negative F [facility] Protein [Mass/volume] in Ser um or PlasmaOrdered By: Zac Muniz on 05-31-2023 Protein [Mass/Vol] 6.7 g/dL 6.4-8.9 [facility] RBC Auto (Bld) [#/Vol]Ordere d By: Christine Sanchez on 05-31-2023 RBC (Bld) [#/Vol] 4.84 10*6/uL 3.90-5.60 [facility] Serum or plasma albumin/glob ulin mass ratioOrdered By: Zac Muniz on 05-31-2023 Albumin/Globulin [Mass ratio] 1.9 {ratio} [facility] Serum or plasma anion gap de terminationOrdered By: Zac Muniz on 05-31-2023 Anion gap [Moles/Vol] 11.4 mmol/L 6.0-15.0 [facility] Serum or plasma complement C 3 measurement (mass/volume)Ordered By: Christine Sanchez on 05-31-2023 Complement C3 [Mass/Vol] 132 mg/dL 82-167 [facility] Comment on above: Performed at: [place] [id number] Director: Richy Ardon PhD, Phone: [phone] Serum or plasma complement C 4 measurement (mass/volume)Ordered By: Christine Sanchez on 05-31-2023 Complement C4 [Mass/Vol] 16 mg/dL 12-38 [facility] Sodium [Moles/volume] in Ser um or PlasmaOrdered By: Zac Muniz on 05-31-2023 Sodium [Moles/Vol] 137 mmol/L 136-145 [facility] Specific gravity Auto test s trip (U) [Rel density]Ordered By: Christine Sanchez on 05-31-2023 Specific gravity (U) [Rel density] 1.023 1.001-1.03 0 [facility] Squamous epithelial cells de tection in urine sediment by light microscopyOrdered By: Christine Sanchez on 05-31-2023 Epithelial cells.squamous LM Ql (Urine sed) None seen [HPF] 0-2 [facility] Urea nitrogen [Mass/volume] in Serum or PlasmaOrdered By: Zac Muniz on 05-31-2023 Urea nitrogen [Mass/Vol] 28 mg/dL 7-25 [facility] Urine bacteria detection by automated methodOrdered By: Christine Sanchez on 05-31-2023 Bacteria Auto Ql (U) None seen None Seen [facility] Urine clarity by refractomet ry automatedOrdered By: Christine Sanchez on 05-31-2023 Clarity Refractometry automated (U) Clear Clear [facility] Urine glucose measurement by automated test strip (mass/volume)Ordered By: Christine Sanchez on 05-31-2023 Glucose Auto test strip (U) [Mass/Vol] Normal mg/dL Normal [facility] Urine hemoglobin detection b y automated test stripOrdered By: Christine Sanchez on 05-31-2023 Hemoglobin Auto test strip Ql (U) Negative Negative [facility] Urine leukocyte esterase det ection by automated test stripOrdered By: Christine Sanchez on 05-31-2023 Leukocyte esterase Auto test strip Ql (U) Negative Negative [facility] Urobilinogen Auto test strip (U) [Mass/Vol]Ordered By: Christine Sanchez on 05-31-2023 Urobilinogen (U) [Mass/Vol] Normal mg/dL Normal [facility] WBC Auto (Bld) [#/Vol]Ordere d By: Christine Sanchez on 05-31-2023 WBC (Bld) [#/Vol] 5.5 10*3/uL 4.1-10.5 [facility] pH Auto test strip (U)Ordere d By: Christine Sanchez on 05-31-2023 pH (U) 5.5 [pH] 5.0-9.0 [facility] Ammonium urate crystals dete ction in stone by infrared spectroscopyOrdered By: Zac Muniz on 05-18-2023 Ammonium urate crystals Infrared spectroscopy Ql (Stone) N/A [facility] Calcium bilirubinate measure mentOrdered By: Zac Muniz on 05-18-2023 Calcium bilirubinate (Stone) [Mass fraction] N/A [facility] Calcium carbonate measuremen tOrdered By: Zac Muniz on 05-18-2023 Calcium carbonate (Stone) [Mass fraction] N/A [facility] Calcium hydrogen phosphate d ihydrate/Total in StoneOrdered By: Zac Muniz on 05-18-2023 Calcium hydrogen phosphate dihydrate (Stone) [Mass fraction] N/A [facility] Calcium oxalate dihydrate cr ystals detection in stone by infrared spectroscopyOrdered By: Zac Muniz on 05-18-2023 Calcium oxalate dihydrate crystals Infrared spectroscopy Ql (Stone) N/A [facility] Calcium oxalate monohydrate/ Total in StoneOrdered By: Zac Muniz on 05-18-2023 Calcium oxalate monohydrate (Stone) [Mass fraction] N/A [facility] Calcium phosphate measuremen tOrdered By: Zac Muniz on 05-18-2023 Calcium phosphate (Stone) [Mass fraction] N/A [facility] Calculus analysis interpreta tion in stoneOrdered By: Zac Muniz on 05-18-2023 Calculus analysis [Interp] N/A [facility] Calculus analysis [Interp] See comment . [facility] Comment on above: Physician questions regarding Calculi Analysis [facility]Green[facility] HospitalCorp at: [phone]. Calculi report will follow via computer, mail or courierdelivery. Calculus analysis with calcu silva photography interpretation in stoneOrdered By: Zac Muniz on 05-18-2023 Calculus analysis with calculus photography [Interp] See comment . [facility] Comment on above: Photograph will foll ow under a separate cover Cellular material measuremen t in stone by estimated (mass/mass)Ordered By: Zac Muniz on 05-18-2023 Cellular material Est (Stone) [Mass/Mass] N/A [facility] Cholesterol/Total in StoneOr dered By: Zac Muniz on 05-18-2023 Cholesterol (Stone) [Mass fraction] N/A [facility] Composition of stoneOrdered By: Zac Muniz on 05-18-2023 Composition Nom (Stone) See comment . [facility] Comment on above: Percentage (Represen ts the % composition) Cystine measurementOrdered B y: Zac Muniz on 05-18-2023 Cystine (Unsp spec) [Moles/Vol] N/A [facility] Determination of color of ca lculusOrdered By: Zac Muniz on 05-18-2023 Color (Stone) Alexander . [facility] Hydroxyapatite [Energy Diffe rence] in 24 hour UrineOrdered By: Zac Muniz on 05-18-2023 Hydroxyapatite (24H U) [Energy diff] N/A [facility] Measurement of proportion of calculus composed of dried blood (mass/mass)Ordered By: Zac Muniz on 05-18-2023 Blood.dried (Stone) [Mass fraction] N/A [facility] Newberyite/Total in StoneOrd ered By: Zac Muniz on 05-18-2023 Newberyite (Stone) [Mass fraction] N/A [facility] No Panel InformationOrdered By: Zac Muniz on 05-18-2023 Stone 2,8 Dihydroxyadenine N/A [facility] Stone Analysis Disclaimer See comment . [facility] Comment on above: This test was develo ped and its performance characteristicsdetermined by [facility] [employer]. It has not been cleared or approvedby the Food and Drug Administration.Performed at: [facility] [id number] Director: Jimmy Warner PhD, Phone: [phone] Stone Bilirubinate N/A [facility] Stone Calcium Palmitate N/A [facility] Stone [facility] Carbonate Apatite N/A [facility] Stone Drug or Metabolite N/A [facility] Stone Other Constituent N/A [facility] Stone Xanthine N/A [facility] Size [Entitic volume] of Sto neOrdered By: Zac Muniz on 05-18-2023 Size (Stone) [Entitic vol] 4x4 mm . [facility] Comment on above: Multiple pieces rece ived. Dimensions of the largest piecereported. Sodium urate crystals detect ion in stone by infrared spectroscopyOrdered By: Zac Muniz on 05-18-2023 Sodium urate crystals Infrared spectroscopy Ql (Stone) N/A [facility] Specimen source subject [Typ e]Ordered By: Zac Muniz on 05-18-2023 Specimen source subject Nom See comment . [facility] Comment on above: Not provided Triamterene measurement in c alculusOrdered By: Zac Muniz on 05-18-2023 Triamterene (Stone) [Mass fraction] N/A [facility] Triple phosphate/Total in St oneOrdered By: Zac Muniz on 05-18-2023 Triple phosphate (Stone) [Mass fraction] N/A [facility] Uric acid dihydrate crystals detection in stone by infrared spectroscopyOrdered By: Zac Muniz on 05-18-2023 Urate dihydrate crystals Infrared spectroscopy Ql (Stone) 100 % . [facility] Urate dihydrate crystals Infrared spectroscopy Ql (Stone) N/A [facility] Tobacco Screening.on 023 Adult depression screening assessment No [facility] manda 250 DO Work Phone: Fall risk assessment a) No falls within the last year [facility] [employer] manda 250 DO Work Phone: Tobacco use status CPHS b) No [facility] [employer] manda 250 DO Work Phone: Automated erythrocytes count in urine sediment (number/area)Ordered By: Romel Orta on 05-07-2023 RBC Auto (Urine sed) [#/Area] 1-2 [HPF] 0-4 [facility] Automated leukocytes count i n urine sediment (number/area)Ordered By: Romel Orta on 05-07-2023 WBC Auto (Urine sed) [#/Area] 3-4 [HPF] 0-4 [facility] Basophils Auto (Bld) [#/Vol] Ordered By: Romel Orta on 05-07-2023 Basophils (Bld) [#/Vol] 0.1 10*3/uL 0.0-0.2 [facility] Basophils/100 WBC Auto (Bld) Ordered By: Romel Orta on 05-07-2023 Basophils/100 WBC (Bld) 0.6 % . [facility] Bilirubin Test strip Ql (U)O rdered By: Romel Orta on 05-07-2023 Bilirubin Ql (U) Negative Negative [facility] Calcium [Mass/volume] in Ser um or PlasmaOrdered By: Romel Orta on 05-07-2023 Calcium [Mass/Vol] 8.8 mg/dL 8.6-10.3 [facility] Carbon dioxide, total [Moles /volume] in Serum or PlasmaOrdered By: Romel Orta on 05-07-2023 CO2 [Moles/Vol] 20.8 mmol/L 21.0-31.0 [facility] Chloride [Moles/volume] in S ace or PlasmaOrdered By: Romel Orta on 05-07-2023 Chloride [Moles/Vol] 105 mmol/L 98-107 [facility] Color Auto (U)Ordered By: Bridgett Orta on 05-07-2023 Color (U) Yellow Yellow [facility] Creatinine [Mass/volume] in Serum or PlasmaOrdered By: Romel Orta on 05-07-2023 Creatinine [Mass/Vol] 1.94 mg/dL 0.70-1.30 [facility] Eosinophils Auto (Bld) [#/Vo l]Ordered By: Romel Orta on 05-07-2023 Eosinophils (Bld) [#/Vol] 0.1 10*3/uL 0.0-0.45 [facility] Eosinophils/100 WBC Auto (Bl d)Ordered By: Romel Orta on 05-07-2023 Eosinophils/100 WBC (Bld) 1.1 % . [facility] Erythrocyte distribution wid th Auto (RBC) [Ratio]Ordered By: Romel Orta on 05-07-2023 Erythrocyte distribution width (RBC) [Ratio] 14.3 % 12.0-14.8 [facility] Glucose [Mass/volume] in Ser um or PlasmaOrdered By: Romel Orta on 05-07-2023 Glucose [Mass/Vol] 98 mg/dL 70-100 [facility] Comment on above: ADA recommended refe rence rangeRandom Glucose Reference Range is dependent on time and content of last meal. Glucose of more than 200 mg/dL in a nonstressed, ambulatory subject supports the diagnosis of Diabetes Mellitus. Hematocrit Auto (Bld) [Volum e fraction]Ordered By: Romel Orta on 05-07-2023 Hematocrit (Bld) [Volume fraction] 38.9 % 38.8-50.0 [facility] Hemoglobin [Mass/volume] in BloodOrdered By: Romel Orta on 05-07-2023 Hemoglobin (Bld) [Mass/Vol] 13.7 g/dL 13.0-17.0 [facility] Ketones Auto test strip (U) [Mass/Vol]Ordered By: Romel Orta on 05-07-2023 Ketones (U) [Mass/Vol] Trace Negative [facility] Laboratory - UrinalysisOrder ed By: Romel Orta on 05-07-2023 Hyaline casts LM Ql (Urine sed) 0-8 [LPF] 0-8 [facility] Leukocytes [#/volume] correc nat for nucleated erythrocytes in Blood by Automated counOrdered By: Romel Orta on 05-07-2023 WBC corrected for nucl RBC Auto (Bld) [#/Vol] 9.9 10*3/uL 4.1-10.5 [facility] Lymphocytes Auto (Bld) [#/Vo l]Ordered By: Romel Orta on 05-07-2023 Lymphocytes (Bld) [#/Vol] 0.6 10*3/uL 1.00-4.8 [facility] Lymphocytes/100 WBC Auto (Bl d)Ordered By: Romel Orta on 05-07-2023 Lymphocytes/100 WBC (Bld) 6.2 % . [facility] MCH Auto (RBC) [Entitic mass ]Ordered By: Romel Orta on 05-07-2023 MCH (RBC) [Entitic mass] 31.3 pg 27.5-35.2 [facility] MCHC Auto (RBC) [Mass/Vol]Or dered By: Romel Orta on 05-07-2023 MCHC (RBC) [Mass/Vol] 35.2 g/dL 32.5-35.6 [facility] MCV Auto (RBC) [Entitic vol] Ordered By: Romel Orta on 05-07-2023 MCV (RBC) [Entitic vol] 88.9 fL 83.5-101 [facility] Monocyte distribution width [Entitic volume] in Blood by AutomatedOrdered By: Romel Orta on 05-07-2023 Monocyte distribution width Auto (Bld) [Entitic vol] 22.82 % 0.00-20.00 [facility] Comment on above: For adults in ED, MD W > 20.0 may be associated with a higher risk of sepsis during the first 12 hrs of hospital admission Monocytes Auto (Bld) [#/Vol] Ordered By: Romel Orta on 05-07-2023 Monocytes (Bld) [#/Vol] 1.5 10*3/uL 0.0-0.8 [facility] Monocytes/100 WBC Auto (Bld) Ordered By: Romel Orta on 05-07-2023 Monocytes/100 WBC (Bld) 15.4 % . [facility] Neutrophils Auto (Bld) [#/Vo l]Ordered By: Romel Orta on 05-07-2023 Neutrophils (Bld) [#/Vol] 7.6 10*3/uL 1.8-7.7 [facility] Neutrophils/100 WBC Auto (Bl d)Ordered By: Romel Orta on 05-07-2023 Neutrophils/100 WBC (Bld) 76.7 % . [facility] Nitrite Test strip Ql (U)Ord ered By: Romel Orta on 05-07-2023 Nitrite Ql (U) Negative Negative [facility] No Panel InformationOrdered By: Romel Orta on 05-07-2023 Estimated GFR (CKD-EPI) 37.476 mL/Min [facility] Creatinine Clearance (Chem 41.86 [facility] Nucleated erythrocytes [Pres ence] in Blood by Automated countOrdered By: Romel Orta on 05-07-2023 Nucleated RBC Auto Ql (Bld) 0.1 /100{WBC} 0-0.5 [facility] Platelet mean volume Auto (B ld) [Entitic vol]Ordered By: Romel Orta on 05-07-2023 Platelet mean volume (Bld) [Entitic vol] 8.3 fL 6.6-10.1 [facility] Platelets Auto (Bld) [#/Vol] Ordered By: Romel Orta on 05-07-2023 Platelets (Bld) [#/Vol] 193 10*3/uL 150-450 [facility] Potassium [Moles/volume] in Serum or PlasmaOrdered By: Romel Orta on 05-07-2023 Potassium [Moles/Vol] 4.2 mmol/L 3.5-5.1 [facility] Protein Auto test strip (U) [Mass/Vol]Ordered By: Romel Orta on 05-07-2023 Protein (U) [Mass/Vol] Negative Negative [facility] RBC Auto (Bld) [#/Vol]Ordere d By: Romel Orta on 05-07-2023 RBC (Bld) [#/Vol] 4.38 10*6/uL 3.90-5.60 [facility] Serum or plasma anion gap de terminationOrdered By: Romel Orta on 05-07-2023 Anion gap [Moles/Vol] 15.4 mmol/L 6.0-15.0 [facility] Sodium [Moles/volume] in Ser um or PlasmaOrdered By: Romel Orta on 05-07-2023 Sodium [Moles/Vol] 137 mmol/L 136-145 [facility] Specific gravity Auto test s trip (U) [Rel density]Ordered By: Romel Orta on 05-07-2023 Specific gravity (U) [Rel density] 1.028 1.001-1.03 0 [facility] Squamous epithelial cells de tection in urine sediment by light microscopyOrdered By: Romel Orta on 05-07-2023 Epithelial cells.squamous LM Ql (Urine sed) 0-1 [HPF] 0-2 [facility] Urea nitrogen [Mass/volume] in Serum or PlasmaOrdered By: Romel Orta on 05-07-2023 Urea nitrogen [Mass/Vol] 34 mg/dL 7-25 [facility] Urine bacteria detection by automated methodOrdered By: Romel Orta on 05-07-2023 Bacteria Auto Ql (U) None seen None Seen [facility] Urine clarity by refractomet ry automatedOrdered By: Romel Orta on 05-07-2023 Clarity Refractometry automated (U) Cloudy Clear [facility] Urine glucose measurement by automated test strip (mass/volume)Ordered By: Romel Orta on 05-07-2023 Glucose Auto test strip (U) [Mass/Vol] Normal mg/dL Normal [facility] Urine hemoglobin detection b y automated test stripOrdered By: Romel Orta on 05-07-2023 Hemoglobin Auto test strip Ql (U) Negative Negative [facility] Urine leukocyte esterase det ection by automated test stripOrdered By: Romel Orta on 05-07-2023 Leukocyte esterase Auto test strip Ql (U) Negative Negative [facility] Urine sediment crystal ident ification by light microscopyOrdered By: Romel Orta on 05-07-2023 Crystals LM Nom (Urine sed) N/A [facility] Urobilinogen Auto test strip (U) [Mass/Vol]Ordered By: Romel Orta on 05-07-2023 Urobilinogen (U) [Mass/Vol] Normal mg/dL Normal [facility] WBC Auto (Bld) [#/Vol]Ordere d By: Romel Orta on 05-07-2023 WBC (Bld) [#/Vol] 9.9 10*3/uL 4.1-10.5 [facility] pH Auto test strip (U)Ordere d By: Romel Orta on 05-07-2023 pH (U) 5.0 [pH] 5.0-9.0 [facility] Alanine aminotransferase [En zymatic activity/volume] in Serum or PlasmaOrdered By: Edenilson Reinoso on 05-03-2023 ALT [Catalytic activity/Vol] 44 U/L [facility] Albumin [Mass/volume] in Ser um or Plasma by Bromocresol green (BCG) dye binding methoOrdered By: Edenilson Reinoso on 05-03-2023 Albumin BCG dye [Mass/Vol] 4.4 g/dL 3.5-5.7 [facility] Alkaline phosphatase [Enzyma tic activity/volume] in Serum or PlasmaOrdered By: Edenilson Reinoso on 05-03-2023 ALP [Catalytic activity/Vol] 79 U/L 34-104 [facility] Aspartate aminotransferase [ Enzymatic activity/volume] in Serum or PlasmaOrdered By: Edenilson Reinoso on 05-03-2023 AST [Catalytic activity/Vol] 28 U/L 13-39 [facility] Automated erythrocytes count in urine sediment (number/area)Ordered By: Edenilson Reinoso on 05-03-2023 RBC Auto (Urine sed) [#/Area] 10-19 [HPF] 0-4 [facility] Automated leukocytes count i n urine sediment (number/area)Ordered By: Edenilson Reinoso on 05-03-2023 WBC Auto (Urine sed) [#/Area] 0-1 [HPF] 0-4 [facility] Basophils Auto (Bld) [#/Vol] Ordered By: Edenilson Reinoso on 05-03-2023 Basophils (Bld) [#/Vol] 0.0 10*3/uL 0.0-0.2 [facility] Basophils/100 WBC Auto (Bld) Ordered By: Edenilson Reinoso on 05-03-2023 Basophils/100 WBC (Bld) 0.3 % . [facility] Bilirubin Test strip Ql (U)O rdered By: Edenilson Reinoso on 05-03-2023 Bilirubin Ql (U) Negative Negative [facility] Bilirubin.direct [Mass/volum e] in Serum or PlasmaOrdered By: Edenilson Reinoso on 05-03-2023 Bilirubin.direct [Mass/Vol] 0.20 mg/dL 0.03-0.18 [facility] Bilirubin.total [Mass/volume ] in Serum or PlasmaOrdered By: Edenilson Reinoso on 05-03-2023 Bilirubin [Mass/Vol] 1.0 mg/dL 0.3-1.0 [facility] Calcium [Mass/volume] in Ser um or PlasmaOrdered By: Edenilson Reinoso on 05-03-2023 Calcium [Mass/Vol] 9.2 mg/dL 8.6-10.3 [facility] Carbon dioxide, total [Moles /volume] in Serum or PlasmaOrdered By: Edenilson Reinoso on 05-03-2023 CO2 [Moles/Vol] 21.3 mmol/L 21.0-31.0 [facility] Chloride [Moles/volume] in S ace or PlasmaOrdered By: Edenilson Reinoso on 05-03-2023 Chloride [Moles/Vol] 105 mmol/L 98-107 [facility] Color Auto (U)Ordered By: Chen Reinoso on 05-03-2023 Color (U) Yellow Yellow [facility] Creatinine [Mass/volume] in Serum or PlasmaOrdered By: Edenilson Reinoso on 05-03-2023 Creatinine [Mass/Vol] 1.51 mg/dL 0.70-1.30 [facility] Eosinophils Auto (Bld) [#/Vo l]Ordered By: Edenilson Reinoso on 05-03-2023 Eosinophils (Bld) [#/Vol] 0.0 10*3/uL 0.0-0.45 [facility] Eosinophils/100 WBC Auto (Bl d)Ordered By: Edenilson Reinoso on 05-03-2023 Eosinophils/100 WBC (Bld) 0.3 % . [facility] Erythrocyte distribution wid th Auto (RBC) [Ratio]Ordered By: Edenilson Reinoso on 05-03-2023 Erythrocyte distribution width (RBC) [Ratio] 14.9 % 12.0-14.8 [facility] Globulin Calc (S) [Mass/Vol] Ordered By: Edenilson Reinoso on 05-03-2023 Globulin (S) [Mass/Vol] 2.3 g/dL [facility] Glucose [Mass/volume] in Ser um or PlasmaOrdered By: Edenilson Reinoso on 05-03-2023 Glucose [Mass/Vol] 107 mg/dL 70-100 [facility] Comment on above: ADA recommended refe rence rangeRandom Glucose Reference Range is dependent on time and content of last meal. Glucose of more than 200 mg/dL in a nonstressed, ambulatory subject supports the diagnosis of Diabetes Mellitus. Hematocrit Auto (Bld) [Volum e fraction]Ordered By: Edenilson Reinoso on 05-03-2023 Hematocrit (Bld) [Volume fraction] 44.5 % 38.8-50.0 [facility] Hemoglobin [Mass/volume] in BloodOrdered By: Edenilson Reinoso on 05-03-2023 Hemoglobin (Bld) [Mass/Vol] 15.7 g/dL 13.0-17.0 [facility] Ketones Auto test strip (U) [Mass/Vol]Ordered By: Edenilson Reinoso on 05-03-2023 Ketones (U) [Mass/Vol] Trace Negative [facility] Laboratory - UrinalysisOrder ed By: Edenilson Reinoso on 05-03-2023 Hyaline casts LM Ql (Urine sed) 0-8 [LPF] 0-8 [facility] Leukocytes [#/volume] correc nat for nucleated erythrocytes in Blood by Automated counOrdered By: Edenilson Reinoso on 05-03-2023 WBC corrected for nucl RBC Auto (Bld) [#/Vol] 13.4 10*3/uL 4.1-10.5 [facility] Lipase [Enzymatic activity/v olume] in Serum or PlasmaOrdered By: Edenilson Reinoso on 05-03-2023 Lipase [Catalytic activity/Vol] 28.0 U/L 11.0-82.0 [facility] Lymphocytes Auto (Bld) [#/Vo l]Ordered By: Edenilson Reinoso on 05-03-2023 Lymphocytes (Bld) [#/Vol] 0.6 10*3/uL 1.00-4.8 [facility] Lymphocytes/100 WBC Auto (Bl d)Ordered By: Edenilson Reinoso on 05-03-2023 Lymphocytes/100 WBC (Bld) 4.3 % . [facility] MCH Auto (RBC) [Entitic mass ]Ordered By: Edenilson Reinoso on 05-03-2023 MCH (RBC) [Entitic mass] 31.1 pg 27.5-35.2 [facility] MCHC Auto (RBC) [Mass/Vol]Or dered By: Edenilson Reinoso on 05-03-2023 MCHC (RBC) [Mass/Vol] 35.4 g/dL 32.5-35.6 [facility] MCV Auto (RBC) [Entitic vol] Ordered By: Edenilson Reinoso on 05-03-2023 MCV (RBC) [Entitic vol] 87.9 fL 83.5-101 [facility] Monocyte distribution width [Entitic volume] in Blood by AutomatedOrdered By: Edenilson Reinoso on 05-03-2023 Monocyte distribution width Auto (Bld) [Entitic vol] 24.56 % 0.00-20.00 [facility] Comment on above: For adults in ED, MD W > 20.0 may be associated with a higher risk of sepsis during the first 12 hrs of hospital admission Monocytes Auto (Bld) [#/Vol] Ordered By: Edenilson Reinoso on 05-03-2023 Monocytes (Bld) [#/Vol] 1.5 10*3/uL 0.0-0.8 [facility] Monocytes/100 WBC Auto (Bld) Ordered By: Edenilson Reinoso on 05-03-2023 Monocytes/100 WBC (Bld) 11.0 % . [facility] Neutrophils Auto (Bld) [#/Vo l]Ordered By: Edenilson Reinoso on 05-03-2023 Neutrophils (Bld) [#/Vol] 11.3 10*3/uL 1.8-7.7 [facility] Neutrophils/100 WBC Auto (Bl d)Ordered By: Edenilson Reinoso on 05-03-2023 Neutrophils/100 WBC (Bld) 84.1 % . [facility] Nitrite Test strip Ql (U)Ord ered By: Edenilson Reinoso on 05-03-2023 Nitrite Ql (U) Negative Negative [facility] No Panel InformationOrdered By: Edenilson Reinoso on 05-03-2023 Estimated GFR (CKD-EPI) 50.623 mL/Min [facility] Creatinine Clearance (Chem 54.49 [facility] Nucleated erythrocytes [Pres ence] in Blood by Automated countOrdered By: Edenilson Reinoso on 05-03-2023 Nucleated RBC Auto Ql (Bld) 0.1 /100{WBC} 0-0.5 [facility] Platelet mean volume Auto (B ld) [Entitic vol]Ordered By: Edenilson Reinoso on 05-03-2023 Platelet mean volume (Bld) [Entitic vol] 8.4 fL 6.6-10.1 [facility] Platelets Auto (Bld) [#/Vol] Ordered By: Eednilson Reinoso on 05-03-2023 Platelets (Bld) [#/Vol] 185 10*3/uL 150-450 [facility] Potassium [Moles/volume] in Serum or PlasmaOrdered By: Edenilson Reinoso on 05-03-2023 Potassium [Moles/Vol] 4.1 mmol/L 3.5-5.1 [facility] Protein Auto test strip (U) [Mass/Vol]Ordered By: Edenilson Reinoso on 05-03-2023 Protein (U) [Mass/Vol] Trace mg/dL Negative F [facility] Protein [Mass/volume] in Ser um or PlasmaOrdered By: Edenilson Reinoso on 05-03-2023 Protein [Mass/Vol] 6.7 g/dL 6.4-8.9 [facility] RBC Auto (Bld) [#/Vol]Ordere d By: Edenilson Reinoso on 05-03-2023 RBC (Bld) [#/Vol] 5.06 10*6/uL 3.90-5.60 [facility] Serum or plasma albumin/glob ulin mass ratioOrdered By: Edenilson Reinoso on 05-03-2023 Albumin/Globulin [Mass ratio] 1.9 {ratio} [facility] Serum or plasma anion gap de terminationOrdered By: Edenilson Reinoso on 05-03-2023 Anion gap [Moles/Vol] 13.8 mmol/L 6.0-15.0 [facility] Serum or plasma non-glucuron idated bilirubin measurement (mass/volume)Ordered By: Edenilson Reinoso on 05-03-2023 Bilirubin.indirect [Mass/Vol] 0.8 mg/dL [facility] Sodium [Moles/volume] in Ser um or PlasmaOrdered By: Edenilson Reinoso on 05-03-2023 Sodium [Moles/Vol] 136 mmol/L 136-145 [facility] Specific gravity Auto test s trip (U) [Rel density]Ordered By: Edenilson Reinoso on 05-03-2023 Specific gravity (U) [Rel density] 1.024 1.001-1.03 0 [facility] Squamous epithelial cells de tection in urine sediment by light microscopyOrdered By: Edenilson Reinoso on 05-03-2023 Epithelial cells.squamous LM Ql (Urine sed) None seen [HPF] 0-2 [facility] Urea nitrogen [Mass/volume] in Serum or PlasmaOrdered By: Edenilson Reinoso on 05-03-2023 Urea nitrogen [Mass/Vol] 22 mg/dL 7-25 [facility] Urine bacteria detection by automated methodOrdered By: Edenilson Reinoso on 05-03-2023 Bacteria Auto Ql (U) None seen None Seen [facility] Urine clarity by refractomet ry automatedOrdered By: Edenilson Reinoso on 05-03-2023 Clarity Refractometry automated (U) Clear Clear [facility] Urine glucose measurement by automated test strip (mass/volume)Ordered By: Edenilson Reinoso on 05-03-2023 Glucose Auto test strip (U) [Mass/Vol] Normal mg/dL Normal [facility] Urine hemoglobin detection b y automated test stripOrdered By: Edenilson Reinoso on 05-03-2023 Hemoglobin Auto test strip Ql (U) 1+ Negative [facility] Urine leukocyte esterase det ection by automated test stripOrdered By: Edenilson Reinoso on 05-03-2023 Leukocyte esterase Auto test strip Ql (U) 1+ Negative [facility] Urobilinogen Auto test strip (U) [Mass/Vol]Ordered By: Edenilson Reinoso on 05-03-2023 Urobilinogen (U) [Mass/Vol] Normal mg/dL Normal [facility] WBC Auto (Bld) [#/Vol]Ordere d By: Edenilson Reinoso on 05-03-2023 WBC (Bld) [#/Vol] 13.4 10*3/uL 4.1-10.5 [facility] pH Auto test strip (U)Ordere d By: Edenilson Reinoso on 05-03-2023 pH (U) 5.5 [pH] 5.0-9.0 [facility] Alanine aminotransferase [En zymatic activity/volume] in Serum or PlasmaOrdered By: Sascha Sutton on 04-08-2023 ALT [Catalytic activity/Vol] 33 U/L 7-52 [facility] Albumin [Mass/volume] in Ser um or Plasma by Bromocresol green (BCG) dye binding methoOrdered By: Sascha Sutton on 04-08-2023 Albumin BCG dye [Mass/Vol] 4.0 g/dL 3.5-5.7 [facility] Alkaline phosphatase [Enzyma tic activity/volume] in Serum or PlasmaOrdered By: Sascha Sutton on 04-08-2023 ALP [Catalytic activity/Vol] 82 U/L 34-104 [facility] Aspartate aminotransferase [ Enzymatic activity/volume] in Serum or PlasmaOrdered By: Sascha Sutton on 04-08-2023 AST [Catalytic activity/Vol] 19 U/L 13-39 [facility] Bilirubin.total [Mass/volume ] in Serum or PlasmaOrdered By: Sascha Sutton on 04-08-2023 Bilirubin [Mass/Vol] 0.8 mg/dL 0.3-1.0 [facility] Calcium [Mass/volume] in Ser um or PlasmaOrdered By: Sascha Sutton on 04-08-2023 Calcium [Mass/Vol] 8.8 mg/dL 8.6-10.3 [facility] Carbon dioxide, total [Moles /volume] in Serum or PlasmaOrdered By: Sascha Sutton 04-08-2023 CO2 [Moles/Vol] 28.1 mmol/L 21.0-31.0 [facility] Chloride [Moles/volume] in S ace or PlasmaOrdered By: Sascha Sutton 04-08-2023 Chloride [Moles/Vol] 107 mmol/L 98-107 [facility] Cholesterol [Mass/volume] in Serum or PlasmaOrdered By: Sascha Sutton 04-08-2023 Cholesterol [Mass/Vol] 119 mg/dL 140-200 [facility] Comment on above: Chol less than 200 m g/dl low riskChol 201-239 mg/dl borderline riskChol 240 mg/dl and greater high risk Cholesterol in LDL Calc [Mas s/Vol]Ordered By: Sascha Sutton 04-08-2023 Cholesterol in LDL [Mass/Vol] 55 mg/dL 0-100 [facility] Comment on above: LDL ATP III CLASSIFI CATIONLDL less than 100 mg/dL OptimalLDL 100-129 mg/dL Near or above optimalLDL 130-159 mg/dL Borderline highLDL 160-189 mg/dL HighLDL greater than 189 mg/dL Very high Cholesterol in VLDL Calc [Ma ss/Vol]Ordered By: Sascha Sutton 04-08-2023 Cholesterol in VLDL [Mass/Vol] 25 mg/dL [facility] Creatinine [Mass/volume] in Serum or PlasmaOrdered By: Sascha Sutton on 04-08-2023 Creatinine [Mass/Vol] 0.85 mg/dL 0.70-1.30 [facility] Globulin Calc (S) [Mass/Vol] Ordered By: Sascha Sutton on 04-08-2023 Globulin (S) [Mass/Vol] 2.1 g/dL [facility] Glucose [Mass/volume] in Ser um or PlasmaOrdered By: Sascha Sutton on 04-08-2023 Glucose [Mass/Vol] 85 mg/dL 70-100 [facility] Comment on above: ADA recommended refe rence rangeRandom Glucose Reference Range is dependent on time and content of last meal. Glucose of more than 200 mg/dL in a nonstressed, ambulatory subject supports the diagnosis of Diabetes Mellitus. No Panel InformationOrdered By: Sascha Sutton on 04-08-2023 Estimated GFR (CKD-EPI) > 60.0 mL/Min [facility] Creatinine Clearance (Chem N/A [facility] Potassium [Moles/volume] in Serum or PlasmaOrdered By: Sascha Sutton 04-08-2023 Potassium [Moles/Vol] 4.1 mmol/L 3.5-5.1 [facility] Prostate specific Ag [Mass/v olume] in Serum or PlasmaOrdered By: Sascha Sutton 04-08-2023 Prostate specific Ag [Mass/Vol] 1.770 ng/mL 0.000-4.00 0 [facility] Protein [Mass/volume] in Ser um or PlasmaOrdered By: Sascha Sutton 04-08-2023 Protein [Mass/Vol] 6.1 g/dL 6.4-8.9 [facility] Serum or plasma albumin/glob ulin mass ratioOrdered By: Sascha Sutton 04-08-2023 Albumin/Globulin [Mass ratio] 1.9 {ratio} [facility] Serum or plasma anion gap de terminationOrdered By: Sascha Sutton 04-08-2023 Anion gap [Moles/Vol] 9.0 mmol/L 6.0-15.0 [facility] Serum or plasma high density lipoprotein (HDL) cholesterol measurementOrdered By: Sascha Sutton on 04-08-2023 Cholesterol in HDL [Mass/Vol] 39 mg/dL 29-71 [facility] Comment on above: HDL CHOL ATP-III CLA SSIFICATION Cardiovascular RiskHDL > or equal to 60 mg/dL LOWHDL < 40 mg/dL HIGH Serum or plasma total choles terol/high density lipoprotein (HDL) cholesterol mass ratOrdered By: Sascha Sutton on 04-08-2023 Cholesterol.total/Chol esterol in HDL [Mass ratio] 3.1 {ratio} <5.0 [facility] Sodium [Moles/volume] in Ser um or PlasmaOrdered By: Sascha Sutton on 04-08-2023 Sodium [Moles/Vol] 140 mmol/L 136-145 [facility] Triglyceride [Mass/volume] i n Serum or PlasmaOrdered By: Sascha Sutton on 04-08-2023 Triglyceride [Mass/Vol] 125 mg/dL 0-149 [facility] Comment on above: TRIG ATP III CLASSIF ICATIONTRIG less than 150 mg/dL NormalTRIG 150-199 mg/dL Borderline highTRIG 200-500 mg/dL High TRIG greater than 500 mg/dL Very highStandard traceable to the Center for Disease Conrtrol and Prevention (CDC) test method. Urea nitrogen [Mass/volume] in Serum or PlasmaOrdered By: Sascha Sutton on 04-08-2023 Urea nitrogen [Mass/Vol] 17 mg/dL 7-25 [facility] Activated partial thrombopla stin time (aPTT) in platelet poor plasma by coagulation aOrdered By: Melanie Trujillo on 03-31-2023 aPTT Coag (PPP) [Time] 39.0 s 25.1-36.5 [facility] Basophils Auto (Bld) [#/Vol] Ordered By: Melanie Trujillo on 03-31-2023 Basophils (Bld) [#/Vol] 0.0 10*3/uL 0.0-0.2 [facility] Basophils/100 WBC Auto (Bld) Ordered By: Melanie Trujillo on 03-31-2023 Basophils/100 WBC (Bld) 0.6 % . [facility] Carbon dioxide, total [Moles /volume] in Serum or PlasmaOrdered By: Melanie Trujillo on 03-31-2023 CO2 [Moles/Vol] 26.4 mmol/L 21.0-31.0 [facility] Chloride [Moles/volume] in S ace or PlasmaOrdered By: Melanie Trujillo on 03-31-2023 Chloride [Moles/Vol] 106 mmol/L 98-107 [facility] Cholesterol [Mass/volume] in Serum or PlasmaOrdered By: Melanie Trujillo on 03-31-2023 Cholesterol [Mass/Vol] 132 mg/dL 140-200 [facility] Comment on above: Chol less than 200 m g/dl low riskChol 201-239 mg/dl borderline riskChol 240 mg/dl and greater high risk Cholesterol in LDL Calc [Mas s/Vol]Ordered By: Melanie Trujillo on 03-31-2023 Cholesterol in LDL [Mass/Vol] 71 mg/dL 0-100 [facility] Comment on above: LDL ATP III CLASSIFI CATIONLDL less than 100 mg/dL OptimalLDL 100-129 mg/dL Near or above optimalLDL 130-159 mg/dL Borderline highLDL 160-189 mg/dL HighLDL greater than 189 mg/dL Very high Cholesterol in VLDL Calc [Ma ss/Vol]Ordered By: Melanie Trujillo on 03-31-2023 Cholesterol in VLDL [Mass/Vol] 21 mg/dL [facility] Creatinine [Mass/volume] in Serum or PlasmaOrdered By: Melanie Trujillo on 03-31-2023 Creatinine [Mass/Vol] 0.88 mg/dL 0.70-1.30 [facility] Eosinophils Auto (Bld) [#/Vo l]Ordered By: Melanie Trujillo on 03-31-2023 Eosinophils (Bld) [#/Vol] 0.1 10*3/uL 0.0-0.45 [facility] Eosinophils/100 WBC Auto (Bl d)Ordered By: Melanie Trujillo on 03-31-2023 Eosinophils/100 WBC (Bld) 1.6 % . [facility] Erythrocyte distribution wid th Auto (RBC) [Ratio]Ordered By: Melanie Trujillo on 03-31-2023 Erythrocyte distribution width (RBC) [Ratio] 14.5 % 12.0-14.8 [facility] Hematocrit Auto (Bld) [Volum e fraction]Ordered By: Melanie Trujillo on 03-31-2023 Hematocrit (Bld) [Volume fraction] 46.7 % 38.8-50.0 [facility] Hemoglobin [Mass/volume] in BloodOrdered By: Melanie Trujillo on 03-31-2023 Hemoglobin (Bld) [Mass/Vol] 16.0 g/dL 13.0-17.0 [facility] Laboratory - Chemistry and C hemistry - challengeon 03-31-2023 Cholesterol [Mass/Vol] 132\S\132 below low threshold 140-200 [facility] [employer] [facility] Work Phone: Comment on above: Chol less than 200 m g/dl low risk Chol 201-239 mg/dl borderline risk Chol 240 mg/dl and greater high risk Cholesterol in LDL [Mass/Vol] 71\S\71 Normal 0-100 [facility] DO Work Phone: Comment on above: LDL ATP III CLASSIFI CATION LDL less than 100 mg/dL Optimal LDL 100-129 mg/dL Near or above optimal LDL 130-159 mg/dL Borderline high LDL 160-189 mg/dL High LDL greater than 189 mg/dL Very high Laboratory - CoagulationOrde red By: Melanie Trujillo on 03-31-2023 PT Coag (PPP) [Time] 12.3 s 9.0-12.9 [facility] Leukocytes [#/volume] correc nat for nucleated erythrocytes in Blood by Automated counOrdered By: Melanie Trujillo on 03-31-2023 WBC corrected for nucl RBC Auto (Bld) [#/Vol] 5.7 10*3/uL 4.1-10.5 [facility] Lymphocytes Auto (Bld) [#/Vo l]Ordered By: Melanie Trujillo on 03-31-2023 Lymphocytes (Bld) [#/Vol] 0.8 10*3/uL 1.00-4.8 [facility] Lymphocytes/100 WBC Auto (Bl d)Ordered By: Melanie Trujillo on 03-31-2023 Lymphocytes/100 WBC (Bld) 13.8 % . [facility] MCH Auto (RBC) [Entitic mass ]Ordered By: Melanie Trujillo on 03-31-2023 MCH (RBC) [Entitic mass] 30.4 pg 27.5-35.2 [facility] MCHC Auto (RBC) [Mass/Vol]Or dered By: Melanie Trujillo on 03-31-2023 MCHC (RBC) [Mass/Vol] 34.2 g/dL 32.5-35.6 [facility] MCV Auto (RBC) [Entitic vol] Ordered By: Melanie Trujillo on 03-31-2023 MCV (RBC) [Entitic vol] 89.0 fL 83.5-101 [facility] Monocytes Auto (Bld) [#/Vol] Ordered By: Melanie Trujillo on 03-31-2023 Monocytes (Bld) [#/Vol] 0.8 10*3/uL 0.0-0.8 [facility] Monocytes/100 WBC Auto (Bld) Ordered By: Melanie Trujillo on 03-31-2023 Monocytes/100 WBC (Bld) 13.9 % . [facility] Neutrophils Auto (Bld) [#/Vo l]Ordered By: Melanie Trujillo on 03-31-2023 Neutrophils (Bld) [#/Vol] 4.0 10*3/uL 1.8-7.7 [facility] Neutrophils/100 WBC Auto (Bl d)Ordered By: Melanie Trujillo on 03-31-2023 Neutrophils/100 WBC (Bld) 70.1 % . [facility] No Panel InformationOrdered By: Melanie Trujillo on 03-31-2023 Estimated GFR (CKD-EPI) > 60.0 mL/Min [facility] Creatinine Clearance (Chem N/A [facility] No Panel Informationon 03-31 10.7\S\10.7 Normal 6.0-15.0 -[facility] [employer] manda 250 DO Work Phone: 26.4\S\26.4 Normal 21.0-31.0 -[facility] [employer] manda 250 DO Work Phone: 106\S\106 Normal 0-149 [facility] DO Work Phone: Comment on above: TRIG ATP III CLASSIF ICATION TRIG less than 150 mg/dL Normal TRIG 150-199 mg/dL Borderline high TRIG 200-500 mg/dL High TRIG greater than 500 mg/dL Very high Standard traceable to the Center for Disease Conrtrol and Prevention (CDC) test method. 4.1\S\4.1 Normal 3.5-5.1 [facility] [employer] 250 DO Work Phone: [phone] 139\S\139 Normal 136-145 [facility] [employer] 250 DO Work Phone: [phone] 23\S\23 Normal 7-25 [facility] [employer] 250 DO Work Phone: [phone] > 60.0 Normal [facility] 250 DO Work Phone: [phone] 0.88\S\0.88 Normal 0.70-1.30 [facility] [employer] manda 250 DO Work Phone: 3.3\S\3.3 Normal <5.0 [facility] [employer] 250 DO Work Phone: Comment on above: PERFORMED BY:[facility] [place], [place] [id number] MEDICAL DIRECTOROLMAN ALBARRAN M.D. 21\S\21 Normal [facility] [employer] manda 250 DO Work Phone: 40\S\40 Normal 29-71 [facility] [employer] 250 DO Work Phone: Comment on above: HDL CHOL ATP-III CLA SSIFICATION Cardiovascular Risk HDL > or equal to 60 mg/dL LOW HDL < 40 mg/dL HIGH 0.0\S\0.0 Normal 0.0-0.2 [facility] 250 DO Work Phone: Comment on above: PERFORMED BY:[facility] [place] [place], [place] [id number] MEDICAL DIRECTOROLMAN ALBARRAN M.D. 0.1\S\0.1 Normal 0-0.5 [facility] manda 250 DO Work Phone: [phone] 0.8\S\0.8 below low threshold 1.00-4.8 [facility] [employer]anda 250 DO Work Phone: [phone] 4.0\S\4.0 Normal 1.8-7.7 [facility] [employer]anda 250 DO Work Phone: [phone] 0.6\S\0.6 Normal . [facility] [employer] 250 DO Work Phone: [phone] 1.6\S\1.6 Normal . [facility] [employer]anda 250 DO Work Phone: [phone] 13.9\S\13.9 Normal . [facility] [employer]anda 250 DO Work Phone: [phone] 13.8\S\13.8 Normal . [facility] [employer]anda 250 DO Work Phone: [phone] 70.1\S\70.1 Normal . [facility] [employer] 250 DO Work Phone: [phone] 8.4\S\8.4 Normal 6.6-10.1 [facility] [employer]anda 250 DO Work Phone: [phone] 180\S\180 Normal 150-450 [facility] [employer]anda 250 DO Work Phone: [phone] 14.5\S\14.5 Normal 12.0-14.8 [facility] [employer]anda 250 DO Work Phone: [phone] 34.2\S\34.2 Normal 32.5-35.6 [facility] manda 250 DO Work Phone: [phone] 30.4\S\30.4 Normal 27.5-35.2 [facility] [employer]anda 250 DO Work Phone: [phone] 89.0\S\89.0 Normal 83.5-101 [facility] manda 250 DO Work Phone: 46.7\S\46.7 Normal 38.8-50.0 [facility] [employer] 250 DO Work Phone: 16.0\S\16.0 Normal 13.0-17.0 [facility] [employer] 250 DO Work Phone: 5.24\S\5.24 Normal 3.90-5.60 [facility] [employer] [employer] 250 DO Work Phone: 5.7\S\5.7 Normal 4.1-10.5 [facility] [employer] 250 DO Work Phone: 39.0\S\39.0 above high threshold 25.1-36.5 [facility] [employer]anda 250 DO Work Phone: Comment on above: PERFORMED BY:[place] [address] [place], [place] [phone] MEDICAL DIRECTOROLMAN ALBARRAN M.D. 1.1\S\1.1 Normal [facility] [employer] Forter DO Work Phone: Comment on above: INR [...] valves: 3 - 4.5 12.3\S\12.3 Normal 9.0-12.9 [facility] For[facility] DO Work Phone: Nucleated erythrocytes [Pres ence] in Blood by Automated countOrdered By: Melanie Trujillo on 03-31-2023 Nucleated RBC Auto Ql (Bld) 0.1 /100{WBC} 0-0.5 [facility] Platelet mean volume Auto (B ld) [Entitic vol]Ordered By: Melanie Trujillo on 03-31-2023 Platelet mean volume (Bld) [Entitic vol] 8.4 fL 6.6-10.1 [facility] Platelet poor plasma interna tional normalized ratio (INR) by coagulation assay (relatOrdered By: Melanie Trujillo on 03-31-2023 INR Coag (PPP) [Relative time] 1.1 {INR} [facility] Comment on above: INR Therapeutic Rang e [...] 03-31-2023 Platelets (Bld) [#/Vol] 180 10*3/uL 150-450 [facility] Potassium [Moles/volume] in Serum or PlasmaOrdered By: Melanie Trujillo on 03-31-2023 Potassium [Moles/Vol] 4.1 mmol/L 3.5-5.1 [facility] RBC Auto (Bld) [#/Vol]Ordere d By: Melanie Trujillo on 03-31-2023 RBC (Bld) [#/Vol] 5.24 10*6/uL 3.90-5.60 [facility] Serum or plasma anion gap de terminationOrdered By: Melanie Trujillo on 03-31-2023 Anion gap [Moles/Vol] 10.7 mmol/L 6.0-15.0 [facility] Serum or plasma high density lipoprotein (HDL) cholesterol measurementOrdered By: Melanie Trujillo on 03-31-2023 Cholesterol in HDL [Mass/Vol] 40 mg/dL 29-71 [facility] Comment on above: HDL CHOL ATP-III CLA SSIFICATION Cardiovascular RiskHDL > or equal to 60 mg/dL LOWHDL < 40 mg/dL HIGH Serum or plasma total choles terol/high density lipoprotein (HDL) cholesterol mass ratOrdered By: Melanie Trujillo on 03-31-2023 Cholesterol.total/Chol esterol in HDL [Mass ratio] 3.3 {ratio} <5.0 [facility] Sodium [Moles/volume] in Ser um or PlasmaOrdered By: Melanie Trujillo on 03-31-2023 Sodium [Moles/Vol] 139 mmol/L 136-145 [facility] Triglyceride [Mass/volume] i n Serum or PlasmaOrdered By: Melanie Trujillo on 03-31-2023 Triglyceride [Mass/Vol] 106 mg/dL 0-149 [facility] Comment on above: TRIG ATP III CLASSIF ICATIONTRIG less than 150 mg/dL NormalTRIG 150-199 mg/dL Borderline highTRIG 200-500 mg/dL High TRIG greater than 500 mg/dL Very highStandard traceable to the Center for Disease Conrtrol and Prevention (CDC) test method. Urea nitrogen [Mass/volume] in Serum or PlasmaOrdered By: Melanie Trujillo on 03-31-2023 Urea nitrogen [Mass/Vol] 23 mg/dL 7-25 [facility] WBC Auto (Bld) [#/Vol]Ordere d By: Melanie Trujillo on 03-31-2023 WBC (Bld) [#/Vol] 5.7 10*3/uL 4.1-10.5 [facility] Office Visit (Cardiology)on 03-30-2023 Follow-up visit Diagnoses/Problems [...] and right neck radiation that occurred at [facility] this past Tuesday with subsequent stress imaging performed after he was admitted at [facility] that was reportedly unremarkable. Patient has since [...] Allergies Medication (more content not included)... Normal [employer] Tobacco Screening.on 023 Adult depression screening assessment No [facility] [employer] 250 DO Work Phone: Fall risk assessment a) No falls within the last year [facility] [employer] 250 DO Work Phone: Tobacco use status [facility] b) No [facility] [employer] 250 DO Work Phone: ECHOCARDIO M/2D COMPLETEon 0 03-21-2023 ECHOCARDIO M/2D COMPLETE Patient: VALENTIN TORRE Exam Date: 03/21/2023 : 1955 Gender:M Ordering : [address] . Admission #: [id number] Family : DR SASCHA SUTTON Order #: [id number] CLICK HERE TO VIEW EXAM ECHOCARDIOGRAM REPORT [...] Area (VTI): 3.04 cm2, 3.04 cm2 Deceleration [place]: 0.56 m/s2 Pressure Half-Time: 991.91 ms Peak [...] Huynh M.D. on 03/24/2023 at 12:21 Normal [facility] STRESS/REST MULTIon 03-21 ME STRESS/REST MULTI Patient: JANEL TORRE Exam Date: 03/21/2023 : 1955 Gender:M Ordering : SHAIKH Pee MULTANI . Admission #: [id number] Family : Order #: [id number] CLICK HERE TO VIEW EXAM RADIOLOGY REPORT [...] M.D. on 03/22/2023 at 11:30 Normal [facility] TROPONIN, HIGH SENSITIVITYon 03-21-2023 HSTROP 13.1 pg/mL Normal 4.0-76.1 [facility] Comment on above: Result Comment: CUT- OFF POINTS HAVE BEEN ESTABLISHED BASED ON THE FOURTH UNIVERSAL DEFINITIONS OF MYOCARDIAL INFARCTION. THE UPPER REFERENCE LIMIT (URL) OF TROPONIN, DEFINED THE 99TH PERCENTILE OF cTnI DISTRIBUTION IN A REFERENCE POPULATION, HAS BEEN CONFIRMED THE DECISION THRESHOLD FOR [place] DIAGNOSIS. Performed By: #### H STRO ####[facility] [id number] [place], [place] [address]ExRigo De Dios BNPon 03-20-2023 Natriuretic peptide B (Bld) [Mass/Vol] 47.0 pg/mL Normal <=900.0 [facility] Comment on above: Performed By: #### B FISHERIES DIRECTOR, CMP, CMADM #### [facility] [address] [address] [address] Jo De Dios CARDIAC YANETH ADMITon 023 CK [Catalytic activity/Vol] 149 U/L Normal 39-308 [facility] Comment on above: Performed By: #### B FISHERIES DIRECTOR, CMP, CMADM ####[facility] [id number] [address]Dr. Jo De Dios CK.MB [Mass/Vol] 1.51 ng/mL Normal <=3.60 [facility] Comment on above: Performed By: #### B FISHERIES DIRECTOR, CMP, CMADM ####[facility] [id number] [address]Dr. Jo De Dios HSTROP 14.8 pg/mL Normal 4.0-76.1 [facility] Comment on above: Result Comment: CUT- OFF POINTS HAVE BEEN ESTABLISHED BASED ON THE FOURTH UNIVERSAL DEFINITIONS OF MYOCARDIAL INFARCTION. THE UPPER REFERENCE LIMIT (URL) OF TROPONIN, DEFINED THE 99TH PERCENTILE OF cTnI DISTRIBUTION IN A REFERENCE POPULATION, HAS BEEN CONFIRMED THE DECISION THRESHOLD FOR [place] DIAGNOSIS. Performed By: #### B FISHERIES DIRECTOR, CMP, CMADM ####[facility] [id number] [address]Dr. Jo De Dios RAAD 55 ng/mL Normal 16-96 [facility] Comment on above: Performed By: #### B FISHERIES DIRECTOR, CMP, CMADM ####[facility] [id number] [place] [address]Dr. Jo De Dios CBC AUTO DIFFon 03-20-2023 BASO # 0.0 103/ul Normal 0.0-0.1 [facility] Comment on above: Performed By: #### C BC #### [facility] [address] [place] [address] Dr. Jo De Dios Basophils/100 WBC (Bld) 0.7 % Normal 0.2-2.0 [facility] Comment on above: Performed By: #### C BC #### [facility] [address] [place] [address] Dr. Jo De Dios EO # 0.1 103/ul Normal 0.0-0.7 [facility] Comment on above: Performed By: #### C BC #### [facility] [address] [place] [address] Dr. Jo De Dios Eosinophils/100 WBC (Bld) 1.5 % Normal 0.9-7.0 [facility] Comment on above: Performed By: #### C BC #### [facility] [address] [place] [address] Dr. Jo De Dios Erythrocyte distribution width (RBC) [Ratio] 14.3 % Normal 11.0-15.0 [facility] Comment on above: Performed By: #### C BC #### [facility] [address] [place] [address] Dr. Jo De Dios Hematocrit (Bld) [Volume fraction] 46.1 % Normal 42.0-54.0 [facility] Comment on above: Performed By: #### C BC #### [facility] [address] [place] [address] Dr. Jo De Dios Hemoglobin (Bld) [Mass/Vol] 15.9 g/dL Normal 14.0-18.0 [facility] Comment on above: Performed By: #### C BC #### [facility] [address] [place] [address] Dr. Jo De Dios IG # 0.03 10e3/ul Normal 0.00-0.03 [facility] Comment on above: Performed By: #### C BC #### [facility] [address] [place] [address] Dr. Jo De Dios IG % 0.5 % Normal 0.0-0.5 [facility] Comment on above: Performed By: #### C BC #### [facility] [address] [place] [address] Dr. Jo De Dios LYMPH # 0.8 103/ul Critically low 1.2-3.8 [facility] Comment on above: Performed By: #### C BC #### [facility] [address] [place] [address] Dr. Jo De Dios Lymphocytes/100 WBC (Bld) 12.6 % Critically low 20.5-60.0 [facility] Comment on above: Performed By: #### C BC #### [facility] [address] [place] [address] Dr. Jo De Dios MANUAL DIFF REQ NO Normal [facility] Comment on above: Performed By: #### C BC #### [facility] [address] [place] [address] Dr. Jo De Dios MCH (RBC) [Entitic mass] 30.1 pg Normal 25.9-34.0 [facility] Comment on above: Performed By: #### C BC #### [facility] [address] [place] [address] Dr. Jo De Dios MCHC (RBC) [Mass/Vol] 34.5 g/dL Normal 29.9-35.2 [facility] Comment on above: Performed By: #### C BC #### [facility] [address] [place] [address] Dr. Jo De Dios MCV (RBC) [Entitic vol] 87.1 fL Normal 80.0-94.0 [facility] Comment on above: Performed By: #### C BC #### [facility] [address] [place] [address] Dr. Jo De Dios MONO # 0.8 103/ul Normal 0.3-0.8 [facility] Comment on above: Performed By: #### C BC #### [facility] [address] [place] [address] Dr. Jo De Dios Monocytes/100 WBC (Bld) 13.7 % Critically high 1.7-12.0 [facility] Comment on above: Performed By: #### C BC #### [facility] [address] [place] [address] Dr. Jo De Dios NEUT # 4.4 103/ul Normal 1.4-6.5 [facility] Comment on above: Performed By: #### C BC #### [facility] [address] [place] [address] Dr. Jo De Dios Neutrophils/100 WBC (Bld) 71.0 % Normal 43.0-75.0 [facility] Comment on above: Performed By: #### C BC #### [facility] [address] [address] [address] Jo eD Dios Platelet mean volume (Bld) [Entitic vol] 9.8 fL Normal 9.5-13.5 [facility] Comment on above: Performed By: #### C BC #### [facility] [address] [address] [address] Jo De Dios PLT 179 103/ul Normal 150-450 [facility] Comment on above: Performed By: #### C BC #### [facility] [address] [address] [address] Jo De Dios RBC 5.29 106/ul Normal 4.70-6.10 [facility] Comment on above: Performed By: #### C BC #### [facility] [address] [place] [address] Dr. Jo De Dios WBC 6.1 103/ul Normal 4.0-11.0 [facility] Comment on above: Performed By: #### C BC #### [facility] [address] [place] [address] Dr. Jo De Dios CTA CHEST WO W CONon 03-20-2 023 CTA CHEST WO W CON EXAM: [...] ROBERTA WOOD Date: 2023-03-20 16:10 Normal [facility] D-DIMERon 03-20-2023 D-DIMER 0.60 mg/L FEU Critically high <=0.59 [facility] Comment on above: Performed By: #### D DIM ####[facility] [id number] [id number]. Jo De Dios D-DIMER COMMENTS SEE BELOW Normal [facility] Comment on above: Result Comment: [...] generalized hospitalization. Performed By: #### D DIM ####[facility] [id number] [address]Dr. Jo De Dios ER URINE PROFILEon 3 Bilirubin Ql (U) Negative Normal NEGATIVE [facility] Comment on above: Performed By: #### E RUR #### [facility] [address] [place] [address] Dr. Jo De Dios Clarity (U) CLEAR Normal CLEAR [facility] Comment on above: Performed By: #### E RUR #### [facility] [address] [address] [address] Jo De Dios Color (U) LT. YELLOW Normal YELLOW [facility] Comment on above: Performed By: #### E RUR #### [facility] [address] [place] [address] Dr. Jo De Dios ERUAHD A micrscopic examina tion will be performed if indicated. Normal [facility] Comment on above: Performed By: #### E RUR #### [facility] [address] [place] [address] Dr. Jo De Dios Glucose Ql (U) Negative Normal NEGATIVE [facility] Comment on above: Performed By: #### E RUR #### [facility] [address] [place] [address] Dr. Jo De Dios Hemoglobin Ql (U) Negative Normal NEGATIVE [facility] Comment on above: Performed By: #### E RUR #### [facility] [address] [place] [address] Dr. Jo De Dios Ketones Ql (U) Negative Normal NEGATIVE [facility] Comment on above: Performed By: #### E RUR #### [facility] [address] [place] [address] Dr. Jo De Dios LEUKOCYTES Negative Normal NEGATIVE [facility] Comment on above: Performed By: #### E RUR #### [facility] [address] [place] [address] Dr. Jo De Dios Nitrite Ql (U) Negative Normal NEGATIVE [facility] Comment on above: Performed By: #### E RUR #### [facility] [address] [place] [address] Dr. Jo De Dios pH (U) 5.0 [pH] Normal 5-9 [facility] Comment on above: Performed By: #### E RUR #### [facility] [address] [place] [address] Dr. Jo De Dios SPEC GRAVITY 1.020 Normal 1.005-<=1. 025 [facility] Comment on above: Performed By: #### E RUR #### [facility] [address] [place] [address] Dr. Jo De Dios UA PROTEIN Negative Normal NEGATIVE/ TRACE [facility] Comment on above: Performed By: #### E RUR #### [facility] [address] [place] [address] Dr. Jo De Dios UR MICRO IND NOT INDICATED Normal [facility] Comment on above: Performed By: #### E RUR #### [facility] [address] [place] [address] Dr. Jo De Dios Urobilinogen Qn (U) 0.2 {Carrie'U}/dL Normal 0.2 - 1. 0 [facility] Comment on above: Performed By: #### E RUR #### [facility] [address] [place] [address] Dr. Jo De Dios GLYCOHEMOGLOBIN A1Con 2022 ADA RECOMMENDATION SEE BELOW Normal [facility] Comment on above: Result Comment: ADA RECOMMENDED LIMIT 4.0 - 6.0 ADA THERAPEUTIC TARGET < 7.0 ACTION SUGGESTED > 7.0 Performed By: #### A 1C #### [facility] [address] [place] [address] Dr. Jo De Dios Glucose [Mass/Vol] 103 mg/dL Normal [facility] Comment on above: Performed By: #### A 1C #### [facility] [address] [place] [address] Dr. Jo De Dios HbA1c (Bld) [Mass fraction] 5.2 % Normal 4.5-6.2 [facility] Comment on above: Performed By: #### A 1C #### [facility] [address] [place] [address] Dr. Jo De Dios LIPID PROFILEon 03-20-2023 CHOL-HDL RATIO NORM SEE BELOW Normal [facility] Comment on above: Result Comment: 3.3 - 4.4 LOW RISK 4.4 - 7.1 AVERAGE RISK 7.1 - 11.0 MODERATE RISK >11.0 HIGH RISK Performed By: #### L IPID #### [facility] [address] [place] [address] Dr. Jo De Dios Cholesterol [Mass/Vol] 132 mg/dL Normal <=200 Th [facility] Comment on above: Performed By: #### L IPID #### [facility] [address] [place] [address] Dr. Jo De Dios Cholesterol in HDL [Mass/Vol] 46 mg/dL Normal 40-60 [facility] Comment on above: Performed By: #### L IPID #### [facility] [address] [place] [address] Dr. Jo De Dios Cholesterol in LDL [Mass/Vol] 69.4 mg/dL Normal [facility] Comment on above: Performed By: #### L IPID #### [facility] [address] [place] [address] Dr. Jo De Dios Cholesterol.total/Chol esterol in HDL [Mass ratio] 2.9 {ratio} Normal [facility] Comment on above: Performed By: #### L IPID #### [facility] [address] [place] [address] Dr. Jo De Dios HDL NORMAL > or = 60 mg/dl - LO W CARDIOVASCULAR RISK <40 mg/dl - HIGH CARDIOVASCULAR RISK Normal [facility] Comment on above: Performed By: #### L IPID #### [facility] [address] [place] [address] Dr. Jo De Dios LDL CALC NORMAL SEE BELOW Normal [facility] Comment on above: Result Comment: <100 mg/dl OPTIMAL 100 - 129 mg/dl NEAR OR ABOVE OPTIMAL 130 - 159 mg/dl BORDERLINE HIGH 160 - 189 mg/dl HIGH >190 mg/dl VERY HIGH Performed By: #### L IPID #### [facility] [address] [place] [address] Dr. Jo De Dios Triglyceride [Mass/Vol] 83 mg/dL Normal <=150 [facility] Comment on above: Performed By: #### L IPID #### [facility] [address] [place] [address] Dr. Jo De Dios VLDL CALC 16.6 mg/dL Normal [facility] Comment on above: Performed By: #### L IPID #### [facility] [address] [place] [address] Dr. Jo De Dios PROF 14(COMP METB)on 023 Albumin [Mass/Vol] 3.7 g/dL Normal 3.4-5.0 [facility] Comment on above: Performed By: #### B FISHERIES DIRECTOR, CMP, CMADM #### [facility] [address] [place] [address] Dr. Jo De Dios Albumin/Globulin [Mass ratio] 1.1 {ratio} Normal [facility] Comment on above: Performed By: #### B FISHERIES DIRECTOR, CMP, CMADM #### [facility] [address] [address] [address] Jo De Dios ALP [Catalytic activity/Vol] 96 U/L Normal 46-116 [facility] Comment on above: Performed By: #### B FISHERIES DIRECTOR, CMP, CMADM #### [facility] [address] [address] [address] Jo De Dios ALT [Catalytic activity/Vol] 41 U/L Normal 16-63 [facility] Comment on above: Performed By: #### B FISHERIES DIRECTOR, CMP, CMADM #### [facility] [address] [address] [address] Jo De Dios Anion gap [Moles/Vol] 11.2 mmol/L Normal Th e [facility] Comment on above: Performed By: #### B FISHERIES DIRECTOR, CMP, CMADM #### [facility] [address] [address] [address] Jo De Dios AST [Catalytic activity/Vol] 25 U/L Normal 15-37 [facility] Comment on above: Performed By: #### B FISHERIES DIRECTOR, CMP, CMADM #### [facility] [address] [address] [address] Jo De Dios Bilirubin [Mass/Vol] 0.8 mg/dL Normal 0.2-1.0 [facility] Comment on above: Performed By: #### B FISHERIES DIRECTOR, CMP, CMADM #### [facility] [address] [address] [address] Jo De Dios Calcium [Mass/Vol] 8.8 mg/dL Normal 8.5-10.1 [facility] Comment on above: Performed By: #### B FISHERIES DIRECTOR, CMP, CMADM #### [facility] [address] [address] [address] Jo De Dios Chloride [Moles/Vol] 109 mmol/L Critically high 98-107 [facility] Comment on above: Performed By: #### B FISHERIES DIRECTOR, CMP, CMADM #### [facility] [address] [address] [address] Jo De Dios CO2 [Moles/Vol] 23.4 mmol/L Normal 21.0-32.0 [facility] Comment on above: Performed By: #### B FISHERIES DIRECTOR, CMP, CMADM #### [facility] [address] [address] [address] Jo De Dios Creatinine [Mass/Vol] 0.84 mg/dL Normal 0.70-1.30 [facility] Comment on above: Performed By: #### B FISHERIES DIRECTOR, CMP, CMADM #### [facility] [address] [address] [address] Jo De Dios EGFR-AF BHUTANESE >60 Normal >=60 [facility] Comment on above: Performed By: #### B FISHERIES DIRECTOR, CMP, CMADM #### [facility] [address] [place] [address] Dr. Jo De Dios EGFR-NON AF BHUTANESE >60 Normal >=60 [facility] Comment on above: Performed By: #### B FISHERIES DIRECTOR, CMP, CMADM #### [facility] [address] [place] [address] Dr. Jo De Dios Globulin (S) [Mass/Vol] 3.3 g/dL Normal [facility] Comment on above: Performed By: #### B FISHERIES DIRECTOR, CMP, CMADM #### [facility] [address] [place] [address] Dr. Jo De Dios Glucose [Mass/Vol] 96 mg/dL Normal 74-106 [facility] Comment on above: Performed By: #### B FISHERIES DIRECTOR, CMP, CMADM #### [facility] [address] [place] [address] Dr. Jo De Dios Potassium [Moles/Vol] 3.6 mmol/L Normal 3.5-5.1 [facility] Comment on above: Performed By: #### B FISHERIES DIRECTOR, CMP, CMADM #### [facility] [address] [place] [address] Dr. Jo De Dios Protein [Mass/Vol] 7.0 g/dL Normal 6.4-8.2 [facility] Comment on above: Performed By: #### B FISHERIES DIRECTOR, CMP, CMADM #### [facility] [address] [place] [address] Dr. Jo De Dios Sodium [Moles/Vol] 140 mmol/L Normal 136-145 [facility] Comment on above: Performed By: #### B FISHERIES DIRECTOR, CMP, CMADM #### [facility] [address] [address] [address] Jo De Dios Urea nitrogen [Mass/Vol] 21.0 mg/dL Critically high 7.0-18.0 [facility] Comment on above: Performed By: #### B FISHERIES DIRECTOR, CMP, CMADM #### [facility] [address] [address] [address] Jo De Dios Urea nitrogen/Creatinine [Mass ratio] 25.0 mg/mg Normal [facility] Comment on above: Performed By: #### B FISHERIES DIRECTOR, CMP, CMADM #### [facility] [address] [place] [address] Dr. Jo De Dios PROTIMEon 03-20-2023 INR Coag (PPP) [Relative time] 0.96 {INR} Normal [facility] Comment on above: Performed By: #### P T, PTT ####[facility] [id number] [address]Dr. Jo De Dios INR GUIDELINES SEE BELOW Normal [facility] Comment on above: Result Comment: BETSEY RED INR: 2.0 - 3.0 CONDITIONS NOT LISTED BELOW 2.5 - 3.5 FOR PROSTHETIC HEART VALVE REPLACEMENT 2.5 - 3.5 RECURRENT THROMBOSIS Performed By: #### P T, PTT ####[facility] [id number] [address]Dr. Jo De Dios PT Coag (PPP) [Time] 10.2 s Normal 9.0-11.6 [facility] Comment on above: Performed By: #### P T, PTT ####[facility] [id number] [address]Dr. Jo De Dios PTTon 03-20-2023 aPTT Coag (Bld) [Time] 30.0 s Normal 22.3-36.2 Th [facility] Comment on above: Performed By: #### P T, PTT ####[facility] [id number] [place], [place] [address]Dr. Jo De Dios TROPONIN, HIGH SENSITIVITYon 03-20-2023 HSTROP 30.2 pg/mL Normal 4.0-76.1 [facility] Comment on above: Result Comment: CUT- OFF POINTS HAVE BEEN ESTABLISHED BASED ON THE FOURTH UNIVERSAL DEFINITIONS OF MYOCARDIAL INFARCTION. THE UPPER REFERENCE LIMIT (URL) OF TROPONIN, DEFINED THE 99TH PERCENTILE OF cTnI DISTRIBUTION IN A REFERENCE POPULATION, HAS BEEN CONFIRMED THE DECISION THRESHOLD FOR [place] DIAGNOSIS. Performed By: #### H STROPN ####[facility] [id number] [place], [place] [address]Zb. Jo De Dios XR CHEST 1 Von [...] GAVIN MINER Date: 2023-03-20 12:56 Normal [facility] Alanine aminotransferase [En zymatic activity/volume] in Serum or PlasmaOrdered By: Christine Sanchez on 01-31-2023 ALT [Catalytic activity/Vol] 34 U/L 7-52 [facility] Albumin [Mass/volume] in Ser um or Plasma by Bromocresol green (BCG) dye binding methoOrdered By: Crhistine Sanchez on 01-31-2023 Albumin BCG dye [Mass/Vol] 4.3 g/dL 3.5-5.7 [facility] Alkaline phosphatase [Enzyma tic activity/volume] in Serum or PlasmaOrdered By: Christine Sanchez on 01-31-2023 ALP [Catalytic activity/Vol] 70 U/L 34-104 [facility] Aspartate aminotransferase [ Enzymatic activity/volume] in Serum or PlasmaOrdered By: Christine Sanchez on 01-31-2023 AST [Catalytic activity/Vol] 23 U/L 13-39 [facility] Automated erythrocytes count in urine sediment (number/area)Ordered By: Christine Sanchez on 01-31-2023 RBC Auto (Urine sed) [#/Area] 1-2 [HPF] 0-4 [facility] Automated leukocytes count i n urine sediment (number/area)Ordered By: Christine Sanchez on 01-31-2023 WBC Auto (Urine sed) [#/Area] 1-2 [HPF] 0-4 [facility] Basophils Auto (Bld) [#/Vol] Ordered By: Christine Sanchez on 01-31-2023 Basophils (Bld) [#/Vol] 0.0 10*3/uL 0.0-0.2 [facility] Basophils/100 WBC Auto (Bld) Ordered By: Christine Sanchez on 01-31-2023 Basophils/100 WBC (Bld) 0.5 % . [facility] Bilirubin Test strip Ql (U)O rdered By: Christine Sanchez on 01-31-2023 Bilirubin Ql (U) Negative Negative [facility] Bilirubin.total [Mass/volume ] in Serum or PlasmaOrdered By: Christine Sanchez on 01-31-2023 Bilirubin [Mass/Vol] 0.8 mg/dL 0.3-1.0 [facility] Calcium [Mass/volume] in Ser um or PlasmaOrdered By: Christine Sanchez on 01-31-2023 Calcium [Mass/Vol] 8.9 mg/dL 8.6-10.3 [facility] Carbon dioxide, total [Moles /volume] in Serum or PlasmaOrdered By: Christine Sanchez on 01-31-2023 CO2 [Moles/Vol] 24.6 mmol/L 21.0-31.0 [facility] Chloride [Moles/volume] in S ace or PlasmaOrdered By: Christine Sanchez on 01-31-2023 Chloride [Moles/Vol] 108 mmol/L 98-107 [facility] Color Auto (U)Ordered By: Marianna Arellano on 01-31-2023 Color (U) Dark yellow Yellow [facility] Creatinine [Mass/volume] in Serum or PlasmaOrdered By: Christine Sanchez on 01-31-2023 Creatinine [Mass/Vol] 0.90 mg/dL 0.70-1.30 [facility] Eosinophils Auto (Bld) [#/Vo l]Ordered By: Christine Sanchez on 01-31-2023 Eosinophils (Bld) [#/Vol] 0.1 10*3/uL 0.0-0.45 [facility] Eosinophils/100 WBC Auto (Bl d)Ordered By: Christine Sanchez on 01-31-2023 Eosinophils/100 WBC (Bld) 1.2 % . [facility] Erythrocyte distribution wid th Auto (RBC) [Ratio]Ordered By: Christine Sanchez on 01-31-2023 Erythrocyte distribution width (RBC) [Ratio] 15.2 % 12.0-14.8 [facility] Erythrocyte sedimentation ra te by Photometric methodOrdered By: Christine Sanchez on 01-31-2023 ESR Photometric method (Bld) [Velocity] 3 mm/hr 0-19 [facility] Globulin Calc (S) [Mass/Vol] Ordered By: Christine Sanchez on 01-31-2023 Globulin (S) [Mass/Vol] 1.9 g/dL [facility] Glucose [Mass/volume] in Ser um or PlasmaOrdered By: Christine Sanchez on 01-31-2023 Glucose [Mass/Vol] 131 mg/dL 74-109 [facility] Comment on above: ADA recommended refe rence rangeRandom Glucose Reference Range is dependent on time and content of last meal. Glucose of more than 200 mg/dL in a nonstressed, ambulatory subject supports the diagnosis of Diabetes Mellitus. Hematocrit Auto (Bld) [Volum e fraction]Ordered By: Christine Sanchez on 01-31-2023 Hematocrit (Bld) [Volume fraction] 45.2 % 38.8-50.0 [facility] Hemoglobin [Mass/volume] in BloodOrdered By: Christine Sanchez on 01-31-2023 Hemoglobin (Bld) [Mass/Vol] 15.4 g/dL 13.0-17.0 [facility] Ketones Auto test strip (U) [Mass/Vol]Ordered By: Christine Sanchez on 01-31-2023 Ketones (U) [Mass/Vol] Trace Negative [facility] Laboratory - Chemistry and C hemistry - challengeOrdered By: Christine Sanchez on 01-31-2023 GFR/1.73 sq M.predicted MDRD (S/P/Bld) [Vol rate/Area] mL/min/{1.73_m2} [facility] Laboratory - UrinalysisOrder ed By: Christine Sanchez on 01-31-2023 Hyaline casts LM Ql (Urine sed) 0-8 [LPF] 0-8 [facility] Leukocytes [#/volume] correc nat for nucleated erythrocytes in Blood by Automated counOrdered By: Christine Sanchez on 01-31-2023 WBC corrected for nucl RBC Auto (Bld) [#/Vol] 4.5 10*3/uL 4.1-10.5 [facility] Lymphocytes Auto (Bld) [#/Vo l]Ordered By: Christine Sanchez on 01-31-2023 Lymphocytes (Bld) [#/Vol] 0.7 10*3/uL 1.00-4.8 [facility] Lymphocytes/100 WBC Auto (Bl d)Ordered By: Christien Sanchez on 01-31-2023 Lymphocytes/100 WBC (Bld) 15.3 % . [facility] MCH Auto (RBC) [Entitic mass ]Ordered By: Christine Sanchez on 01-31-2023 MCH (RBC) [Entitic mass] 30.4 pg 27.5-35.2 [facility] MCHC Auto (RBC) [Mass/Vol]Or dered By: Christine Sanchez on 01-31-2023 MCHC (RBC) [Mass/Vol] 34.1 g/dL 32.5-35.6 [facility] MCV Auto (RBC) [Entitic vol] Ordered By: Christine Sanchez on 01-31-2023 MCV (RBC) [Entitic vol] 89.0 fL 83.5-101 [facility] Monocytes Auto (Bld) [#/Vol] Ordered By: Christine Sanchez on 01-31-2023 Monocytes (Bld) [#/Vol] 0.4 10*3/uL 0.0-0.8 [facility] Monocytes/100 WBC Auto (Bld) Ordered By: Christine Sanchez on 01-31-2023 Monocytes/100 WBC (Bld) 9.0 % . [facility] Neutrophils Auto (Bld) [#/Vo l]Ordered By: Christine Sanchez on 01-31-2023 Neutrophils (Bld) [#/Vol] 3.3 10*3/uL 1.8-7.7 [facility] Neutrophils/100 WBC Auto (Bl d)Ordered By: Christine Sanchez on 01-31-2023 Neutrophils/100 WBC (Bld) 74.0 % . [facility] Nitrite Test strip Ql (U)Ord ered By: Christine Sanchez on 01-31-2023 Nitrite Ql (U) Negative Negative [facility] No Panel InformationOrdered By: Christine Sanchez on 01-31-2023 Pharmacy Creatinine Clearance (Chem N/A [facility] Total Complement (CH50) >60 U/mL >41 [facility] Comment on above: Age Male Female 3 [...] to determine out of range values.Performed at: [facility] [id number] Director: Richy Ardon PhD, Phone: [phone] Nucleated erythrocytes [Pres ence] in Blood by Automated countOrdered By: Christine Sanchez on 01-31-2023 Nucleated RBC Auto Ql (Bld) 0.3 /100{WBC} 0-0.5 [facility] Platelet mean volume Auto (B ld) [Entitic vol]Ordered By: Christine Sanchez on 01-31-2023 Platelet mean volume (Bld) [Entitic vol] 8.5 fL 6.6-10.1 [facility] Platelets Auto (Bld) [#/Vol] Ordered By: Christine Sanchez on 01-31-2023 Platelets (Bld) [#/Vol] 163 10*3/uL 150-450 [facility] Potassium [Moles/volume] in Serum or PlasmaOrdered By: Christine Sanchez on 01-31-2023 Potassium [Moles/Vol] 3.7 mmol/L 3.5-5.1 [facility] Protein Auto test strip (U) [Mass/Vol]Ordered By: Christine Sanchez on 01-31-2023 Protein (U) [Mass/Vol] Trace mg/dL Negative [facility] Protein [Mass/volume] in Ser um or PlasmaOrdered By: Christine Sanchez on 01-31-2023 Protein [Mass/Vol] 6.2 g/dL 6.4-8.9 [facility] RBC Auto (Bld) [#/Vol]Ordere d By: Christine Sanchez on 01-31-2023 RBC (Bld) [#/Vol] 5.08 10*6/uL 3.90-5.60 [facility] Serum or plasma albumin/glob ulin mass ratioOrdered By: Christine Sanchez on 01-31-2023 Albumin/Globulin [Mass ratio] 2.3 {ratio} [facility] Serum or plasma anion gap de terminationOrdered By: Christine Sanchez on 01-31-2023 Anion gap [Moles/Vol] 11.1 mmol/L 6.0-15.0 [facility] Serum or plasma complement C 3 measurement (mass/volume)Ordered By: Christine Sanchez on 01-31-2023 Complement C3 [Mass/Vol] 124 mg/dL 82-167 [facility] Comment on above: Performed at: [facility] [address] [id number] Director: Richy Ardon PhD, Phone: [phone] Serum or plasma complement C 4 measurement (mass/volume)Ordered By: Christine Sanchez on 03-13-2023 Complement C4 [Mass/Vol] 16 mg/dL 12-38 [facility] Sodium [Moles/volume] in Ser um or PlasmaOrdered By: Christine Sanchez on 01-31-2023 Sodium [Moles/Vol] 140 mmol/L 136-145 [facility] Specific gravity Auto test s trip (U) [Rel density]Ordered By: Christine Sanchez on 01-31-2023 Specific gravity (U) [Rel density] 1.028 1.001-1.03 0 [facility] Squamous epithelial cells de tection in urine sediment by light microscopyOrdered By: Christine Sanchez on 01-31-2023 Epithelial cells.squamous LM Ql (Urine sed) 0-1 [HPF] 0-2 [facility] Urea nitrogen [Mass/volume] in Serum or PlasmaOrdered By: Christine Sanchez on 01-31-2023 Urea nitrogen [Mass/Vol] 23 mg/dL 7-25 [facility] Urine bacteria detection by automated methodOrdered By: Christine Sanchez on 01-31-2023 Bacteria Auto Ql (U) None seen None Seen [facility] Urine clarity by refractomet ry automatedOrdered By: Christine Sanchez on 01-31-2023 Clarity Refractometry automated (U) Turbid Clear [facility] Urine glucose measurement by automated test strip (mass/volume)Ordered By: Christine Sanchez on 01-31-2023 Glucose Auto test strip (U) [Mass/Vol] Normal mg/dL Normal [facility] Urine hemoglobin detection b y automated test stripOrdered By: Christine Sanchez on 01-31-2023 Hemoglobin Auto test strip Ql (U) Negative Negative [facility] Urine leukocyte esterase det ection by automated test stripOrdered By: Christine Sanchze on 01-31-2023 Leukocyte esterase Auto test strip Ql (U) 1+ Negative [facility] Urobilinogen Auto test strip (U) [Mass/Vol]Ordered By: Christine Sanchez on 01-31-2023 Urobilinogen (U) [Mass/Vol] Normal mg/dL Normal [facility] WBC Auto (Bld) [#/Vol]Ordere d By: Christine Sanchez on 01-31-2023 WBC (Bld) [#/Vol] 4.5 10*3/uL 4.1-10.5 [facility] pH Auto test strip (U)Ordere d By: Christine Sanchez on 01-31-2023 pH (U) 5.0 [pH] 5.0-9.0 [facility] Automated erythrocytes count in urine sediment (number/area)Ordered By: Christine Sanchez on 10-26-2022 RBC Auto (Urine sed) [#/Area] 0-1 [HPF] 0-4 [facility] Automated leukocytes count i n urine sediment (number/area)Ordered By: Christine Sanchez on 10-26-2022 WBC Auto (Urine sed) [#/Area] 0-1 [HPF] 0-4 [facility] Basophils Auto (Bld) [#/Vol] Ordered By: Christine Sanchez on 10-26-2022 Basophils (Bld) [#/Vol] 0.0 10*3/uL 0.0-0.2 [facility] Basophils/100 WBC Auto (Bld) Ordered By: Christine Sanchez on 10-26-2022 Basophils/100 WBC (Bld) 0.6 % . [facility] Bilirubin Test strip Ql (U)O rdered By: Christine Sanchez on 10-26-2022 Bilirubin Ql (U) Negative Negative [facility] Body fluid albumin measureme nt (mass/volume)Ordered By: Christine Sanchez on 10-26-2022 Albumin (Body fld) [Mass/Vol] 4.0 g/dL 3.2-5.5 [facility] Color Auto (U)Ordered By: Marianna Arellano on 10-26-2022 Color (U) Yellow Yellow [facility] Creatinine and Glomerular fi ltration rate.predicted panel (S/P/Bld)Ordered By: Christine Sanchez on 10-26-2022 Creatinine [Mass/Vol] 0.89 mg/dL 0.64-1.27 [facility] Eosinophils Auto (Bld) [#/Vo l]Ordered By: Christine Sanchez on 10-26-2022 Eosinophils (Bld) [#/Vol] 0.1 10*3/uL 0.0-0.45 [facility] Eosinophils/100 WBC Auto (Bl d)Ordered By: Christine Sanchez on 10-26-2022 Eosinophils/100 WBC (Bld) 1.9 % . [facility] Erythrocyte distribution wid th Auto (RBC) [Ratio]Ordered By: Christine Sanchez on 10-26-2022 Erythrocyte distribution width (RBC) [Ratio] 14.7 % 12.0-14.8 [facility] Erythrocyte sedimentation ra te by Photometric methodOrdered By: Christine Sanchez on 10-26-2022 ESR Photometric method (d) [Velocity] 6 mm/hr 0-19 [facility] Estimated glomerular filtrat ion rate (GFR) non- AmericanOrdered By: Christine Sanchez on 10-26-2022 GFR/1.73 sq M.predicted among non-blacks MDRD (S/P/Bld) [Vol rate/Area] > 60 mL/Min [facility] Globulin Calc (S) [Mass/Vol] Ordered By: Christine Sanchez on 10-26-2022 Globulin (S) [Mass/Vol] 2.2 g/dL [facility] Hematocrit Auto (Bld) [Volum e fraction]Ordered By: Christine Sanchez on 10-26-2022 Hematocrit (Bld) [Volume fraction] 45.5 % 38.8-50.0 [facility] Hemoglobin [Mass/volume] in BloodOrdered By: Christine Sanchez on 10-26-2022 Hemoglobin (Bld) [Mass/Vol] 15.5 g/dL 13.0-17.0 [facility] Ketones Auto test strip (U) [Mass/Vol]Ordered By: Christine Sanchez on 10-26-2022 Ketones (U) [Mass/Vol] Trace Negative [facility] - UrinalysisOrder ed By: Christine Sanchez on 10-26-2022 Hyaline casts LM Ql (Urine sed) 0-8 [LPF] 0-8 [facility] Leukocytes [#/volume] correc nat for nucleated erythrocytes in Blood by Automated counOrdered By: Christine Sanchez on 10-26-2022 WBC corrected for nucl RBC Auto (Bld) [#/Vol] 4.7 10*3/uL 4.1-10.5 [facility] Lymphocytes Auto (Bld) [#/Vo l]Ordered By: Christine Sanchez on 10-26-2022 Lymphocytes (Bld) [#/Vol] 0.8 10*3/uL 1.00-4.8 [facility] Lymphocytes/100 WBC Auto (Bl d)Ordered By: Christine Sanchez on 10-26-2022 Lymphocytes/100 WBC (Bld) 16.8 % . [facility] MCH Auto (RBC) [Entitic mass ]Ordered By: Christine Sanchez on 10-26-2022 MCH (RBC) [Entitic mass] 30.4 pg 27.5-35.2 [facility] MCHC Auto (RBC) [Mass/Vol]Or dered By: Christine Sanchez on 10-26-2022 MCHC (RBC) [Mass/Vol] 33.9 g/dL 32.5-35.6 [facility] MCV Auto (RBC) [Entitic vol] Ordered By: Christine Sanchez on 10-26-2022 MCV (RBC) [Entitic vol] 89.6 fL 83.5-101 [facility] Monocytes Auto (Bld) [#/Vol] Ordered By: Christine Sanchez on 10-26-2022 Monocytes (Bld) [#/Vol] 0.6 10*3/uL 0.0-0.8 [facility] Monocytes/100 WBC Auto (Bld) Ordered By: Christine Sanchez on 10-26-2022 Monocytes/100 WBC (Bld) 12.8 % . [facility] Neutrophils Auto (Bld) [#/Vo l]Ordered By: Christine Sanchez on 10-26-2022 Neutrophils (Bld) [#/Vol] 3.2 10*3/uL 1.8-7.7 [facility] Neutrophils/100 WBC Auto (Bl d)Ordered By: Christine Sanchez on 10-26-2022 Neutrophils/100 WBC (Bld) 67.9 % . [facility] Nitrite Test strip Ql (U)Ord ered By: Christine Sanchez on 10-26-2022 Nitrite Ql (U) Negative Negative [facility] No Panel InformationOrdered By: Christine Sanchez on 10-26-2022 Estimated GFR () > 60 mL/Min [facility] Comment on above: GFR estimated refere nce range: According to KDOQI guidelines, <60 ml/min/1.73m2 is sufficient to diagnose a patient with chronic kidney disease. Pharmacy Creatinine Clearance (Chem N/A [facility] Nucleated erythrocytes [Pres ence] in Blood by Automated countOrdered By: Christine Sanchez on 10-26-2022 Nucleated RBC Auto Ql (Bld) 0.3 /100{WBC} 0-0.5 [facility] Platelet mean volume Auto (B ld) [Entitic vol]Ordered By: Christine Sanchez on 10-26-2022 Platelet mean volume (Bld) [Entitic vol] 8.3 fL 6.6-10.1 [facility] Platelets Auto (Bld) [#/Vol] Ordered By: Christine Sanchez on 10-26-2022 Platelets (Bld) [#/Vol] 203 10*3/uL 150-450 [facility] Protein Auto test strip (U) [Mass/Vol]Ordered By: Christine Sanchez on 10-26-2022 Protein (U) [Mass/Vol] Negative Negative [facility] Protein [Mass/volume] in Ser um or PlasmaOrdered By: Christine Sanchez on 10-26-2022 Protein [Mass/Vol] 6.2 g/dL 6.1-7.9 [facility] RBC Auto (Bld) [#/Vol]Ordere d By: Christine Sanchez on 10-26-2022 RBC (Bld) [#/Vol] 5.08 10*6/uL 3.90-5.60 [facility] Serum or plasma alanine calvert otransferase measurement without P-5'-P (enzymatic activiOrdered By: Christine Sanchez on 10-26-2022 ALT No additional P-5'-P [Catalytic activity/Vol] 40 U/L 10-60 [facility] Serum or plasma albumin/glob ulin mass ratioOrdered By: Christine Sanchez on 10-26-2022 Albumin/Globulin [Mass ratio] 1.8 {ratio} [facility] Serum or plasma alkaline kelsie sphatase measurement (enzymatic activity/volume)Ordered By: Christine Sanchez on 10-26-2022 ALP [Catalytic activity/Vol] 82 U/L 32-92 [facility] Serum or plasma anion gap de terminationOrdered By: Christine Snachez on 10-26-2022 Anion gap [Moles/Vol] 16.9 mmol/L 6.0-15.0 [facility] Serum or plasma aspartate am inotransferase measurement (enzymatic activity/volume)Ordered By: Christine Sanchez on 10-26-2022 AST [Catalytic activity/Vol] 24 U/L 10-42 [facility] Serum or plasma calcium ophelia urement (mass/volume)Ordered By: Christine Sanchez on 10-26-2022 Calcium [Mass/Vol] 9.6 mg/dL 8.2-10.2 [facility] Serum or plasma chloride arelis surement (moles/volume)Ordered By: Christine Sanchez on 10-26-2022 Chloride [Moles/Vol] 102 mmol/L 95-114 [facility] Serum or plasma glucose ophelia urement (mass/volume)Ordered By: Christine Sanchez on 10-26-2022 Glucose [Mass/Vol] 105 mg/dL 70-100 [facility] Comment on above: ADA recommended refe rence rangeRandom Glucose Reference Range is dependent on time and content of last meal. Glucose of more than 200 mg/dL in a nonstressed, ambulatory subject supports the diagnosis of Diabetes Mellitus. Serum or plasma potassium me asurement (moles/volume)Ordered By: Christine Sanchez on 10-26-2022 Potassium [Moles/Vol] 4.1 mmol/L 3.5-5.1 [facility] Serum or plasma sodium measu rement (moles/volume)Ordered By: Christine Sanchez on 10-26-2022 Sodium [Moles/Vol] 136 mmol/L 136-146 [facility] Serum or plasma total biliru bin measurement (mass/volume)Ordered By: Christine Sanchez on 10-26-2022 Bilirubin [Mass/Vol] 0.8 mg/dL 0.3-1.2 [facility] Serum or plasma total carbon dioxide measurement (moles/volume)Ordered By: Christine Sanchez on 10-26-2022 CO2 [Moles/Vol] 21.2 mmol/L 22.0-30.0 [facility] Serum or plasma urea nitroge n measurement (mass/volume)Ordered By: Christine Sanchez on 10-26-2022 Urea nitrogen [Mass/Vol] 16 mg/dL 9-23 [facility] Specific gravity Auto test s trip (U) [Rel density]Ordered By: Christine Sanchez on 10-26-2022 Specific gravity (U) [Rel density] 1.024 1.001-1.03 0 [facility] Squamous epithelial cells de tection in urine sediment by light microscopyOrdered By: Christine Sanchez on 10-26-2022 Epithelial cells.squamous LM Ql (Urine sed) None seen [HPF] 0-2 [facility] Urine bacteria detection by automated methodOrdered By: Christine Sanchez on 10-26-2022 Bacteria Auto Ql (U) None seen None Seen [facility] Urine clarity by refractomet ry automatedOrdered By: Christine Sanchez on 10-26-2022 Clarity Refractometry automated (U) Clear Clear [facility] Urine glucose measurement by automated test strip (mass/volume)Ordered By: Christine Sanchez on 10-26-2022 Glucose Auto test strip (U) [Mass/Vol] Normal mg/dL Normal [facility] Urine hemoglobin detection b y automated test stripOrdered By: Christine Sanchez on 10-26-2022 Hemoglobin Auto test strip Ql (U) Negative Negative [facility] Urine leukocyte esterase det ection by automated test stripOrdered By: Christine Sanchez on 10-26-2022 Leukocyte esterase Auto test strip Ql (U) Negative Negative [facility] Urobilinogen Auto test strip (U) [Mass/Vol]Ordered By: Christine Sanchez on 10-26-2022 Urobilinogen (U) [Mass/Vol] Normal mg/dL Normal [facility] WBC Auto (Bld) [#/Vol]Ordere d By: Christine Sanchez on 10-26-2022 WBC (Bld) [#/Vol] 4.7 10*3/uL 4.1-10.5 [facility] pH Auto test strip (U)Ordere d By: Christine Sanchez on 10-26-2022 pH (U) 5.5 [pH] 5.0-9.0 [facility] Automated erythrocytes count in urine sediment (number/area)Ordered By: Christine Sanchez on 07-21-2022 RBC Auto (Urine sed) [#/Area] 0-1 [HPF] 0-4 [facility] Automated leukocytes count i n urine sediment (number/area)Ordered By: Christine Sanchez on 07-21-2022 WBC Auto (Urine sed) [#/Area] 0-1 [HPF] 0-4 [facility] Basophils Auto (Bld) [#/Vol] Ordered By: Christine Sanchez on 07-21-2022 Basophils (Bld) [#/Vol] 0.0 10*3/uL 0.0-0.2 [facility] Basophils/100 WBC Auto (Bld) Ordered By: Christine Sanchez on 07-21-2022 Basophils/100 WBC (Bld) 0.6 % . [facility] Bilirubin Test strip Ql (U)O rdered By: Christine Sanchez on 07-21-2022 Bilirubin Ql (U) Negative Negative [facility] Body fluid albumin measureme nt (mass/volume)Ordered By: Christine Sanchez on 07-21-2022 Albumin (Body fld) [Mass/Vol] 3.9 g/dL 3.2-5.5 [facility] Color Auto (U)Ordered By: Marianna Arellano on 07-21-2022 Color (U) Yellow Yellow [facility] Creatinine and Glomerular fi ltration rate.predicted panel (S/P/Bld)Ordered By: Christine Sanchez on 07-21-2022 Creatinine [Mass/Vol] 0.91 mg/dL 0.64-1.27 [facility] Eosinophils Auto (Bld) [#/Vo l]Ordered By: Christine Sanchez on 07-21-2022 Eosinophils (Bld) [#/Vol] 0.1 10*3/uL 0.0-0.45 [facility] Eosinophils/100 WBC Auto (Bl d)Ordered By: Christine Sanchez on 07-21-2022 Eosinophils/100 WBC (Bld) 1.6 % . [facility] Erythrocyte distribution wid th Auto (RBC) [Ratio]Ordered By: Christine Sanchez on 07-21-2022 Erythrocyte distribution width (RBC) [Ratio] 15.2 % 12.0-14.8 [facility] Erythrocyte sedimentation ra te by Photometric methodOrdered By: Christine Sanchez on 07-21-2022 ESR Photometric method (Bld) [Velocity] 9 mm/hr 0-19 [facility] Estimated glomerular filtrat ion rate (GFR) non- AmericanOrdered By: Christine Sanchez on 07-21-2022 GFR/1.73 sq M.predicted among non-blacks MDRD (S/P/Bld) [Vol rate/Area] > 60 mL/Min [facility] Globulin Calc (S) [Mass/Vol] Ordered By: Christine Sanchez on 07-21-2022 Globulin (S) [Mass/Vol] 2.1 g/dL [facility] Hematocrit Auto (Bld) [Volum e fraction]Ordered By: Christine Sanchez on 07-21-2022 Hematocrit (Bld) [Volume fraction] 45.4 % 38.8-50.0 [facility] Hemoglobin [Mass/volume] in BloodOrdered By: Christine Sanchez on 07-21-2022 Hemoglobin (Bld) [Mass/Vol] 15.2 g/dL 13.0-17.0 [facility] Ketones Auto test strip (U) [Mass/Vol]Ordered By: Christine Sanchez on 07-21-2022 Ketones (U) [Mass/Vol] Negative Negative [facility] Laboratory - Hematology and Cell countsOrdered By: Christine Sanchez on 07-21-2022 Nucleated RBC/100 WBC (Bld) [Ratio] 0.1 % 0-0.5 [facility] - UrinalysisOrder ed By: Christine Sanchez on 07-21-2022 Hyaline casts LM Ql (Urine sed) 0-8 [LPF] 0-8 [facility] Leukocytes [#/volume] in Blo od by Automated countOrdered By: Christine Sanchez on 07-21-2022 WBC (Bld) [#/Vol] 6.6 10*3/uL 4.5-11.0 [facility] Lymphocytes Auto (Bld) [#/Vo l]Ordered By: Christine Sanchez on 07-21-2022 Lymphocytes (Bld) [#/Vol] 0.8 10*3/uL 1.00-4.8 [facility] Lymphocytes/100 WBC Auto (Bl d)Ordered By: Christine Sanchez on 07-21-2022 Lymphocytes/100 WBC (Bld) 11.5 % . [facility] MCH Auto (RBC) [Entitic mass ]Ordered By: Christine Sanchez on 07-21-2022 MCH (RBC) [Entitic mass] 30.3 pg 27.5-35.2 [facility] MCHC Auto (RBC) [Mass/Vol]Or dered By: Christine Sanchez on 07-21-2022 MCHC (RBC) [Mass/Vol] 33.5 g/dL 32.5-35.6 [facility] MCV Auto (RBC) [Entitic vol] Ordered By: Christine Sanchez on 07-21-2022 MCV (RBC) [Entitic vol] 90.4 fL 83.5-101 [facility] Monocytes Auto (Bld) [#/Vol] Ordered By: Christine Sanchez on 07-21-2022 Monocytes (Bld) [#/Vol] 0.9 10*3/uL 0.0-0.8 [facility] Monocytes/100 WBC Auto (Bld) Ordered By: Christine Sanchez on 07-21-2022 Monocytes/100 WBC (Bld) 13.7 % . [facility] Neutrophils Auto (Bld) [#/Vo l]Ordered By: Christine Sanchez on 07-21-2022 Neutrophils (Bld) [#/Vol] 4.8 10*3/uL 1.8-7.7 [facility] Neutrophils/100 WBC Auto (Bl d)Ordered By: Christine Sanchez on 07-21-2022 Neutrophils/100 WBC (Bld) 72.6 % . [facility] Nitrite Test strip Ql (U)Ord ered By: Christine Sanchez on 07-21-2022 Nitrite Ql (U) Negative Negative [facility] No Panel InformationOrdered By: Christine Sanchez on 07-21-2022 Estimated GFR () > 60 mL/Min [facility] Comment on above: GFR estimated refere nce range: According to KDOQI guidelines, <60 ml/min/1.73m2 is sufficient to diagnose a patient with chronic kidney disease. Pharmacy Creatinine Clearance (Chem N/A [facility] Total Complement (CH50) >60 U/mL >41 [facility] Comment on above: Age Male Female 3 [...] determine out of range values.Performed at: - [facility] [id number] Director: Richy Ardon PhD, Phone: [phone] Platelet mean volume Auto (B ld) [Entitic vol]Ordered By: Christine Sanchez on 07-21-2022 Platelet mean volume (Bld) [Entitic vol] 8.4 fL 6.6-10.1 [facility] Platelets Auto (Bld) [#/Vol] Ordered By: Christine Sanchez on 07-21-2022 Platelets (Bld) [#/Vol] 185 10*3/uL 150-450 [facility] Protein Auto test strip (U) [Mass/Vol]Ordered By: Christine Sanchez on 07-21-2022 Protein (U) [Mass/Vol] Negative Negative [facility] Protein [Mass/volume] in Ser um or PlasmaOrdered By: Christine Sanchez on 07-21-2022 Protein [Mass/Vol] 6.0 g/dL 6.1-7.9 [facility] RBC Auto (Bld) [#/Vol]Ordere d By: Christine Sanchez on 07-21-2022 RBC (Bld) [#/Vol] 5.03 10*6/uL 3.90-5.60 [facility] Serum or plasma alanine calvert otransferase measurement without P-5'-P (enzymatic activiOrdered By: Christine Sanchez on 07-21-2022 ALT No additional P-5'-P [Catalytic activity/Vol] 35 U/L 1060 [facility] Serum or plasma albumin/glob ulin mass ratioOrdered By: Christine Sanchez on 07-21-2022 Albumin/Globulin [Mass ratio] 1.9 {ratio} [facility] Serum or plasma alkaline kelsie sphatase measurement (enzymatic activity/volume)Ordered By: Christine Sanchez on 07-21-2022 ALP [Catalytic activity/Vol] 81 U/L 32-92 [facility] Serum or plasma anion gap de terminationOrdered By: Christine Sanchez on 07-21-2022 Anion gap [Moles/Vol] 13.7 mmol/L 6.0-15.0 Fi [facility] Serum or plasma aspartate am inotransferase measurement (enzymatic activity/volume)Ordered By: Christine Sanchez on 07-21-2022 AST [Catalytic activity/Vol] 20 U/L 1042 [facility] Serum or plasma calcium ophelia urement (mass/volume)Ordered By: Christine Sanchez on 07-21-2022 Calcium [Mass/Vol] 9.5 mg/dL 8.2-10.2 [facility] Serum or plasma chloride arelis surement (moles/volume)Ordered By: Christine Sanchez on 07-21-2022 Chloride [Moles/Vol] 103 mmol/L 95-114 [facility] Serum or plasma complement C 3 measurement (mass/volume)Ordered By: Christine Sanchez on 07-21-2022 Complement C3 [Mass/Vol] 145 mg/dL 82-167 [facility] Comment on above: Performed at: [address] [id number] Director: Richy Ardon PhD, Phone: [phone] Serum or plasma complement C 4 measurement (mass/volume)Ordered By: Christine Sanchez on 07-21-2022 Complement C4 [Mass/Vol] 23 mg/dL 12-38 [facility] Serum or plasma glucose ophelia urement (mass/volume)Ordered By: Christine Sanchez on 07-21-2022 Glucose [Mass/Vol] 83 mg/dL 70-100 [facility] Comment on above: ADA recommended refe rence rangeRandom Glucose Reference Range is dependent on time and content of last meal. Glucose of more than 200 mg/dL in a nonstressed, ambulatory subject supports the diagnosis of Diabetes Mellitus. Serum or plasma potassium me asurement (moles/volume)Ordered By: Christine Sanchez on 07-21-2022 Potassium [Moles/Vol] 4.1 mmol/L 3.5-5.1 [facility] Serum or plasma sodium measu rement (moles/volume)Ordered By: Christine Sanchez on 07-21-2022 Sodium [Moles/Vol] 135 mmol/L 136-146 [facility] Serum or plasma total biliru bin measurement (mass/volume)Ordered By: Christine Sanchez on 07-21-2022 Bilirubin [Mass/Vol] 0.9 mg/dL 0.3-1.2 [facility] Serum or plasma total carbon dioxide measurement (moles/volume)Ordered By: Christine Sanchez on 07-21-2022 CO2 [Moles/Vol] 22.4 mmol/L 22.0-30.0 [facility] Serum or plasma urea nitroge n measurement (mass/volume)Ordered By: Christine Sanchez on 07-21-2022 Urea nitrogen [Mass/Vol] 15 mg/dL 08-13 [facility] Specific gravity Auto test s trip (U) [Rel density]Ordered By: Christine Sanchez on 07-21-2022 Specific gravity (U) [Rel density] 1.020 1.001-1.03 0 [facility] Squamous epithelial cells de tection in urine sediment by light microscopyOrdered By: Christine Sanchez on 07-21-2022 Epithelial cells.squamous LM Ql (Urine sed) None seen [HPF] 0-2 [facility] Urine bacteria detection by automated methodOrdered By: Christine Snachez on 07-21-2022 Bacteria Auto Ql (U) None seen None Seen [facility] Urine clarity by refractomet ry automatedOrdered By: Christine Sanchez on 07-21-2022 Clarity Refractometry automated (U) Clear Clear [facility] Urine glucose measurement by automated test strip (mass/volume)Ordered By: Christine Sanchez on 07-21-2022 Glucose Auto test strip (U) [Mass/Vol] Normal mg/dL Normal [facility] Urine hemoglobin detection b y automated test stripOrdered By: Christine Sanchez on 07-21-2022 Hemoglobin Auto test strip Ql (U) Negative Negative [facility] Urine leukocyte esterase det ection by automated test stripOrdered By: Christine Sanchez on 07-21-2022 Leukocyte esterase Auto test strip Ql (U) Negative Negative [facility] Urobilinogen Auto test strip (U) [Mass/Vol]Ordered By: Christine Sanchez on 07-21-2022 Urobilinogen (U) [Mass/Vol] Normal mg/dL Normal [facility] pH Auto test strip (U)Ordere d By: Christine Sanchez on 07-21-2022 pH (U) 6.0 [pH] 5.0-9.0 [facility] Automated erythrocytes count in urine sediment (number/area)Ordered By: Romel Davis on 04-14-2022 RBC Auto (Urine sed) [#/Area] 5-9 [HPF] [facility] Automated leukocytes count i n urine sediment (number/area)Ordered By: Romelsera Davis on 04-14-2022 WBC Auto (Urine sed) [#/Area] 0-1 [HPF] [facility] Basophils Auto (Bld) [#/Vol] Ordered By: Romel Davis on 04-14-2022 Basophils (Bld) [#/Vol] 0.0 10*3/uL 0.0-0.2 [facility] Basophils/100 WBC Auto (Bld) Ordered By: Romel Davis on 04-14-2022 Basophils/100 WBC (Bld) 0.6 % [facility] Bilirubin Test strip Ql (U)O rdered By: Romel Davis on 04-14-2022 Bilirubin Ql (U) Negative Negative [facility] Blood hemoglobin measurement (mass/volume)Ordered By: Romel Davis on 04-14-2022 Hemoglobin (Bld) [Mass/Vol] 15.4 g/dL 13.0-17.0 [facility] Blood leukocytes automated c ount (number/volume)Ordered By: Romel Davis on 04-14-2022 WBC (Bld) [#/Vol] 5.8 10*3/uL 4.5-11.0 [facility] Body fluid albumin measureme nt (mass/volume)Ordered By: Romel Davis on 04-14-2022 Albumin (Body fld) [Mass/Vol] 3.9 g/dL 3.2-5.5 [facility] Cholesterol [Mass/volume] in Serum or PlasmaOrdered By: Sascha Sutton on 04-14-2022 Cholesterol [Mass/Vol] 125 mg/dL 140-200 [facility] Comment on above: Chol less than 200 m g/dl low risk Chol 201-239 mg/dl borderline risk Chol 240 mg/dl and greater high risk Cholesterol in LDL Calc [Mas s/Vol]Ordered By: Sascha Sutton on 04-14-2022 Cholesterol in LDL [Mass/Vol] 69 mg/dL 0-100 [facility] Comment on above: LDL ATP III CLASSIFI CATION LDL less than 100 mg/dL Optimal LDL 100-129 mg/dL Near or above optimal LDL 130-159 mg/dL Borderline high LDL 160-189 mg/dL High LDL greater than 189 mg/dL Very high Cholesterol in VLDL Calc [Ma ss/Vol]Ordered By: Sascha Sutton on 04-14-2022 Cholesterol in VLDL [Mass/Vol] 15 mg/dL [facility] Color Auto (U)Ordered By: Bridgett Davis on 04-14-2022 Color (U) Yellow Yellow [facility] Creatinine and Glomerular fi ltration rate.predicted panel (S/P/Bld)Ordered By: Romel Davis on 04-14-2022 Creatinine [Mass/Vol] 0.86 mg/dL 0.64-1.27 [facility] Eosinophils Auto (Bld) [#/Vo l]Ordered By: Romel Davis on 04-14-2022 Eosinophils (Bld) [#/Vol] 0.1 10*3/uL 0.0-0.45 [facility] Eosinophils/100 WBC Auto (Bl d)Ordered By: Romel Davis on 04-14-2022 Eosinophils/100 WBC (Bld) 1.5 % [facility] Erythrocyte distribution wid th Auto (RBC) [Ratio]Ordered By: Romel Davis on 04-14-2022 Erythrocyte distribution width (RBC) [Ratio] 14.6 % 12.0-14.8 [facility] Erythrocyte sedimentation ra te by Photometric methodOrdered By: Romel Davis on 04-14-2022 ESR Photometric method (Bld) [Velocity] 5 mm/hr 0-19 [facility] Estimated glomerular filtrat ion rate (GFR) non- AmericanOrdered By: Romel Davis on 04-14-2022 GFR/1.73 sq M.predicted among non-blacks MDRD (S/P/Bld) [Vol rate/Area] > 60 mL/Min [facility] Globulin Calc (S) [Mass/Vol] Ordered By: Romel Davis on 04-14-2022 Globulin (S) [Mass/Vol] 2.3 g/dL [facility] Hematocrit Auto (Bld) [Volum e fraction]Ordered By: Romel Davis on 04-14-2022 Hematocrit (Bld) [Volume fraction] 45.0 % 38.8-50.0 [facility] Ketones Auto test strip (U) [Mass/Vol]Ordered By: Romel Davis on 04-14-2022 Ketones (U) [Mass/Vol] Trace Negative [facility] Laboratory - Hematology and Cell countsOrdered By: Romel Davis on 04-14-2022 Nucleated RBC/100 WBC (Bld) [Ratio] 0.1 % 0-0.5 [facility] - UrinalysisOrder ed By: Romel Davis on 04-14-2022 Hyaline casts LM Ql (Urine sed) 0-8 [LPF] [facility] Lymphocytes Auto (Bld) [#/Vo l]Ordered By: Romel Davis on 04-14-2022 Lymphocytes (Bld) [#/Vol] 0.6 10*3/uL 1.00-4.8 [facility] Lymphocytes/100 WBC Auto (Bl d)Ordered By: Romel Davis on 04-14-2022 Lymphocytes/100 WBC (Bld) 10.9 % [facility] MCH Auto (RBC) [Entitic mass ]Ordered By: Romel Davis on 04-14-2022 MCH (RBC) [Entitic mass] 30.5 pg 27.5-35.2 [facility] MCHC Auto (RBC) [Mass/Vol]Or dered By: Romel Davis on 04-14-2022 MCHC (RBC) [Mass/Vol] 34.2 g/dL 32.5-35.6 [facility] MCV Auto (RBC) [Entitic vol] Ordered By: Romel Davis on 04-14-2022 MCV (RBC) [Entitic vol] 89.3 fL 83.5-101 [facility] Monocytes Auto (Bld) [#/Vol] Ordered By: Romel Davis on 04-14-2022 Monocytes (Bld) [#/Vol] 0.7 10*3/uL 0.0-0.8 [facility] Monocytes/100 WBC Auto (Bld) Ordered By: Romel Davis on 04-14-2022 Monocytes/100 WBC (Bld) 12.2 % [facility] Neutrophils Auto (Bld) [#/Vo l]Ordered By: Romel Davis on 04-14-2022 Neutrophils (Bld) [#/Vol] 4.4 10*3/uL 1.8-7.7 [facility] Neutrophils/100 WBC Auto (Bl d)Ordered By: Romel Davis on 04-14-2022 Neutrophils/100 WBC (Bld) 74.8 % [facility] Nitrite Test strip Ql (U)Ord ered By: Romel Davis on 04-14-2022 Nitrite Ql (U) Negative Negative [facility] No Panel InformationOrdered By: Romel Davis on 04-14-2022 Estimated GFR () > 60 mL/Min [facility] Comment on above: GFR estimated refere nce range: According to KDOQI guidelines, <60 ml/min/1.73m2 is sufficient to diagnose a patient with chronic kidney disease. Pharmacy Creatinine Clearance (Chem N/A [facility] No Panel InformationOrdered By: Sascha Sutton on 04-14-2022 Prostate Specific Antigen Screen 1.930 ng/mL 0.000-4.00 0 [facility] Platelet mean volume Auto (B ld) [Entitic vol]Ordered By: Romel Davis on 04-14-2022 Platelet mean volume (Bld) [Entitic vol] 8.8 fL 6.6-10.1 [facility] Platelets Auto (Bld) [#/Vol] Ordered By: Romel Davis on 04-14-2022 Platelets (Bld) [#/Vol] 181 10*3/uL 150-450 [facility] Protein Auto test strip (U) [Mass/Vol]Ordered By: Romel Davis on 04-14-2022 Protein (U) [Mass/Vol] Trace mg/dL Negative F [facility] Protein [Mass/volume] in Ser um or PlasmaOrdered By: Romel Davis on 04-14-2022 Protein [Mass/Vol] 6.2 g/dL 6.1-7.9 [facility] RBC Auto (Bld) [#/Vol]Ordere d By: Romel Davis on 05-25-2022 RBC (Bld) [#/Vol] 5.03 10*6/uL 3.90-5.60 [facility] Serum or plasma alanine calvert otransferase measurement without P-5'-P (enzymatic activiOrdered By: Romel Davis on 04-14-2022 ALT No additional P-5'-P [Catalytic activity/Vol] 27 U/L 10-60 [facility] Serum or plasma albumin/glob ulin mass ratioOrdered By: Romel Davis on 04-14-2022 Albumin/Globulin [Mass ratio] 1.7 {ratio} [facility] Serum or plasma alkaline kelsie sphatase measurement (enzymatic activity/volume)Ordered By: Romel Davis on 04-14-2022 ALP [Catalytic activity/Vol] 77 U/L 32-92 [facility] Serum or plasma aspartate am inotransferase measurement (enzymatic activity/volume)Ordered By: Romel Davis on 04-14-2022 AST [Catalytic activity/Vol] 20 U/L 10-42 [facility] Serum or plasma calcium ophelia urement (mass/volume)Ordered By: Romel Davis on 04-14-2022 Calcium [Mass/Vol] 9.0 mg/dL 8.2-10.2 [facility] Serum or plasma chloride arelis surement (moles/volume)Ordered By: Romel Davis on 04-14-2022 Chloride [Moles/Vol] 104 mmol/L 95-114 [facility] Serum or plasma glucose ophelia urement (mass/volume)Ordered By: Romel Davis on 04-14-2022 Glucose [Mass/Vol] 110 mg/dL 70-100 [facility] Comment on above: ADA recommended refe rence range Random Glucose Reference Range is dependent on time and content of last meal. Glucose of more than 200 mg/dL in a nonstressed, ambulatory subject supports the diagnosis of Diabetes Mellitus. Serum or plasma high density lipoprotein (HDL) cholesterol measurementOrdered By: Sascha Sutton on 04-14-2022 Cholesterol in HDL [Mass/Vol] 41 mg/dL 29-71 [facility] Comment on above: HDL CHOL ATP-III CLA SSIFICATION Cardiovascular Risk HDL > or equal to 60 mg/dL LOW HDL < 40 mg/dL HIGH Serum or plasma potassium me asurement (moles/volume)Ordered By: Romel Davis on 04-14-2022 Potassium [Moles/Vol] 3.9 mmol/L 3.5-5.1 [facility] Serum or plasma sodium measu rement (moles/volume)Ordered By: Romel Davis on 04-14-2022 Sodium [Moles/Vol] 136 mmol/L 136-146 [facility] Serum or plasma total biliru bin measurement (mass/volume)Ordered By: Romel Davis on 04-14-2022 Bilirubin [Mass/Vol] 0.9 mg/dL 0.3-1.2 [facility] Serum or plasma total carbon dioxide measurement (moles/volume)Ordered By: Romel Davis on 04-14-2022 CO2 [Moles/Vol] 21.2 mmol/L 22.0-30.0 [facility] Serum or plasma total choles terol/high density lipoprotein (HDL) cholesterol mass ratOrdered By: Sascha Sutton on 04-14-2022 Cholesterol.total/Chol esterol in HDL [Mass ratio] 3.0 {ratio} [facility] Serum or plasma urea nitroge n measurement (mass/volume)Ordered By: Romel Davis on 04-14-2022 Urea nitrogen [Mass/Vol] 16 mg/dL 9-23 [facility] Specific gravity Auto test s trip (U) [Rel density]Ordered By: Romel Davis on 04-14-2022 Specific gravity (U) [Rel density] 1.025 1.001-1.03 0 [facility] Squamous epithelial cells de tection in urine sediment by light microscopyOrdered By: Romel Davis on 04-14-2022 Epithelial cells.squamous LM Ql (Urine sed) 0-1 [HPF] [facility] Triglyceride [Mass/volume] i n Serum or PlasmaOrdered By: Sascha Sutton on 04-14-2022 Triglyceride [Mass/Vol] 75 mg/dL 35-149 [facility] Comment on above: TRIG ATP III CLASSIF ICATION TRIG less than 150 mg/dL Normal TRIG 150-199 mg/dL Borderline high TRIG 200-500 mg/dL High TRIG greater than 500 mg/dL Very high Standard traceable to the Center for Disease Conrtrol and Prevention (CDC) test method. Urine bacteria detection by automated methodOrdered By: Romel Davis on 04-14-2022 Bacteria Auto Ql (U) None seen None Seen [facility] Urine clarity by refractomet ry automatedOrdered By: Romel Davis on 04-14-2022 Clarity Refractometry automated (U) Turbid Clear [facility] Urine glucose measurement by automated test strip (mass/volume)Ordered By: Romel Davis on 04-14-2022 Glucose Auto test strip (U) [Mass/Vol] Normal mg/dL Normal [facility] Urine hemoglobin detection b y automated test stripOrdered By: Romel Davis on 04-14-2022 Hemoglobin Auto test strip Ql (U) Negative Negative [facility] Urine leukocyte esterase det ection by automated test stripOrdered By: Romel Davis on 04-14-2022 Leukocyte esterase Auto test strip Ql (U) Negative Negative [facility] Urobilinogen Auto test strip (U) [Mass/Vol]Ordered By: Romel Davis on 04-14-2022 Urobilinogen (U) [Mass/Vol] Normal mg/dL Normal [facility] pH Auto test strip (U)Ordere d By: Romel Davis on 04-14-2022 pH (U) 5.5 [pH] 5.0-9.[address] [facility] [address] CSPINE WO CONon 2 CT CSPINE [...] PRIMO GALE Date: 2022-04-09 17:03 Normal [facility] CT HEAD WO CONon 04-09-2022 CT [...] PRIMO GALE Date: 2022-04-09 17:00 Normal [facility] CT TSPINE WO CONon 2 CT [...] PRIMO GALE Date: 2022-04-09 17:10 Normal [facility] CT ABDOMEN AND PELVIS W/O CO NTRASTon 04-25-2018 CT ABDOMEN AND PELVIS W/O CONTRAST Performed at [facility] APPROVED BY: JOSE CRUZ HOLLEY [...] the detailed report for complete information. Normal [facility] Comprehensive Panelon 2017 Albumin 4.3 g/dL Normal 3.4-5.0 [facility] Comment on above: Performed By: #### S P14 ####[place] [address] Alkaline phosphatase (ALP) 87 U/L Normal 46-116 [facility] Comment on above: Performed By: #### S P14 ####[place] [address] ALT-SGPT Blood 38 U/L Normal 12-78 [facility] Comment on above: Performed By: #### S P14 ####[place] [address] Anion gap 13 mmol/L Normal 8-16 [facility] Comment on above: Performed By: #### S P14 ####[place] [address] AST-SGOT Blood 22 U/L Normal 15-46 [facility] Comment on above: Performed By: #### S P14 ####[place] [address] Bilirubin Ql (U) 0.9 mg/dL Normal 0.2-1.0 [facility] Comment on above: Performed By: #### S P14 ####[place] [address] BUN (urea nitrogen) 20 mg/dL High 7-18 [facility] Comment on above: Performed By: #### S P14 ####[facility] [place] [address] Calcium 9.0 mg/dL Normal 8.5-10.1 [facility] Comment on above: Performed By: #### S P14 ####[place] [address] Chloride 104 mmol/L Normal 98-107 [facility] Comment on above: Performed By: #### S P14 ####[place] [address] CO2 24 mmol/L Normal 21-32 [facility] Comment on above: Performed By: #### S P14 ####[place] [address] Creatinine 0.93 mg/dL Normal 0.67-1.17 [facility] Comment on above: Performed By: #### S P14 ####[place] [address] Glucose mass conc 142 mg/dL High 70-99 [facility] Comment on above: Performed By: #### S P14 ####[place] [address] Potassium molar conc 3.8 mmol/L Normal 3.5-5.1 [facility] Comment on above: Performed By: #### S P14 ####[place] [address] Protein 7.4 g/dL Normal 6.4-8.2 [facility] Comment on above: Performed By: #### S P14 ####[place] [address] Sodium 137 mmol/L Normal 136-145 [facility] Comment on above: Performed By: #### S P14 ####[place] [address] ED NOTEon 04-25-2018 ED NOTE HNO ID: [id number] Author: Minerva Miguel) KATHE Zepeda Service: Emergency Medicine Author Type: Registered Nurse Type: ED Notes Filed: 04/25/2018 5:51 AM Note Text: Voided 150 cc light yellow urine which was strained: no stone noted Normal [facility] ED NOTE HNO ID: [id number] Author: Minerva GarciaRn) KATHE Zepeda Service: Emergency Medicine Author Type: Registered Nurse Type: ED Notes Filed: 04/25/2018 3:34 AM Note Text: Patient returned to the Emergency Department. Normal [facility] ED NOTE HNO ID: [id number] Author: Valentine GarciaRn) KATHE Stratton Service: Emergency Medicine Author Type: Registered Nurse Type: ED Notes Filed: 04/25/2018 3:30 AM Note Text: Patient transported to ct/cart Normal [facility] ED NOTE HNO ID: [id number] Author: Valentine GarciaRn) KATHE Stratton Service: Emergency Medicine Author Type: Registered Nurse Type: ED Notes Filed: 04/25/2018 3:21 AM Note Text: Warm b lanket given, labs drawn with IV start AND sent, medicated for paIN PER ORDER Normal [facility] ED NOTE HNO ID: [id number] thor: Minerva (Rn) DIEGO Zepedaervice: Emergency MedicineAuthor Type: Registered NurseType: ED NotesFiled: 04/25/2018 2:55 AMNote Text:c/o pain left lower abdomen that began around 12:30 AM-- pain woke pt upand is assoc with nausea. Vomited small amt food particles upon arrival toed Rm Normal [facility] ED PROV NOTEon 04-25-2018 ED PROV NOTE HNO ID: [id number] thor: STEPHANIE Gillervice: Emergency MedicineAuthor Type: PhysicianType: ED Provider NotesFiled: 04/25/2018 6:48 AMNote Text:ED Provider NotePatient Name: Valentin TorreMRN: [id number] DATE: 04/25/18HistoryPatient presents with:Abdominal PainPatient is a [...] 10.24 (*) 1.35 - 7.21 thou/cmm Abs. [place] 0.84 (*) 0.19 - 0.80 thou/cmm All [...] up withurology as an outpatient. They're from [place] and he will follow-upwith the urologist there. He was discharged home in improved condition.He is happy with his care and comfortable with the plan.ED Course / Clinical ImpressionClinical Impressions as of Apr 25 0647Ureteral calculus, leftHydronephrosis with urinary obstruction due to renal calculusPlanSIGNATURE: Jose De Jesus Gill MD/04/07 0648 Normal [facility] Hemogram/Diffon 04-25-2018 Abs. Baso 0.02 thou/cmm Normal 0.00-0.08 [facility] Comment on above: Performed By: #### S CBCD ####[place] [address] Abs. [place] 0.84 thou/cmm High 0.19-0.80 [facility] Comment on above: Performed By: #### S CBCD ####[place] [address] Abs. Neut (ANC) 10.24 thou/cmm High 1.35-7.21 [facility] Comment on above: Performed By: #### S CBCD ####[address] [address] Basophils/100 WBC Auto (Bld) 0.2 % Normal [facility] Comment on above: Performed By: #### S CBCD ####[address] [address] Eosinophils 0.04 thou/cmm Normal 0.00-0.36 [facility] Comment on above: Performed By: #### S CBCD ####[address] [address] Eosinophils/100 leukocytes 0.3 % Normal [facility] Comment on above: Performed By: #### S CBCD ####[place] [address] Erythrocyte distribution width Auto Ratio (RBC) 13.7 % Normal 11.8-14.5 [facility] Comment on above: Performed By: #### S CBCD ####[place] [address] Erythrocytes (RBC) 5.26 mil/cmm Normal 4.22-5.80 [facility] Comment on above: Performed By: #### S CBCD ####[place] [address] Hematocrit (HCT) 47.0 % Normal 39.6-50.7 [facility] Comment on above: Performed By: #### S CBCD ####[place] [address] Hemoglobin mass conc (Bld) 16.2 g/dL Normal 13.2-17.4 [facility] Comment on above: Performed By: #### S CBCD ####[place] [address] Lymphocytes 0.83 thou/cmm Normal 0.68-2.93 [facility] Comment on above: Performed By: #### S CBCD ####[place] [address] Lymphocytes/100 leukocytes 6.9 % Normal [facility] Comment on above: Performed By: #### S CBCD ####[place] [address] MCH 30.8 pg Normal 27.4-32.8 [facility] Comment on above: Performed By: #### S CBCD ####[place] [address] MCHC mass conc (RBC) 34.5 % Normal 31.9-35.6 [facility] Comment on above: Performed By: #### S CBCD ####[place] [address] MCV 89.4 fL Normal 81.8-95.6 [facility] Comment on above: Performed By: #### S CBCD ####[place] [address] Monocytes/100 leukocytes 7.0 % Normal [facility] Comment on above: Performed By: #### S CBCD ####[place] [address] Platelet mean volume (PMV) 10.1 fL Normal 8.8-12.1 [facility] Comment on above: Performed By: #### S CBCD ####[place] [address] Platelets 169 thou/cmm Normal 150-370 [facility] Comment on above: Performed By: #### S CBCD ####[place] [address] Seg Neutrophil 85.6 % Normal [facility] Comment on above: Performed By: #### S CBCD ####[address] [address] WBC (Leukocytes) 12.0 thou/cmm High 4.4-9.7 [facility] Comment on above: Performed By: #### S CBCD ####[place] [address] Lipase Bloodon 04-25-2018 Lipase Blood 155 U/L Normal 73-393 [facility] Comment on above: Performed By: #### S LIP ####[place] [address] MDRD eGFRon 04-25-2018 eGFR (non-black) mL/min/{1.73_m2} Normal >60mL/m in/ 1.73m2 [facility] Comment on above: Result Comment: If t he patient is , multiply the result by 1.210. Performed By: #### S GFR ####[place] [address] Urinalysis Routineon 018 Bilirubin Urine Negative Normal Negative [facility] Comment on above: Performed By: #### S URIN ####[place] [address] Ep Cells Urine NONE Normal 0-5 [facility] Comment on above: Performed By: #### S URIN ####[address] [address] Hemoglobin,Urine TRACE-INTACT Abnormal Negative [facility] Comment on above: Performed By: #### S URIN ####[address] [place], [place] [address] Ketone Urine 15 mg/dL Abnormal Negative [facility] Comment on above: Performed By: #### S URIN ####[facility] [place], [place] [address] Nitrites Urine Negative Normal Negative [facility] Comment on above: Performed By: #### S URIN ####[address] [address] Protein Urine Negative Normal Negative [facility] Comment on above: Performed By: #### S URIN ####[place] [address] Specific [place], Ur 1.020 Normal 1.005-1 .03 0 [facility] Comment on above: Performed By: #### S URIN ####[address] [address] Urine, appearance CLEAR Normal [facility] Comment on above: Performed By: #### S URIN ####[address] [address] Urine, bacteria in sediment NONE Normal None [facility] Comment on above: Performed By: #### S URIN ####[address] [address] Urine, color YELLOW Normal [facility] Comment on above: Performed By: #### S URIN ####[address] [address] Urine, erythrocytes in sediment by area 7-12 Normal 0-3 [facility] Comment on above: Performed By: #### S URIN ####[address] [address] Urine, glucose presence Negative Normal Negative [facility] Comment on above: Performed By: #### S URIN ####[address] [address] Urine, leukocytes in sedmiment 0-2 Normal 0-5 [facility] Comment on above: Performed By: #### S URIN ####[place] [address] Urine, pH 7.0 [pH] Normal 5.0-8.0 [facility] Comment on above: Performed By: #### S URIN ####[facility] [place], [place] [address] Urobilinogen,Ur 0.2 EU/dL Normal 0.0-1.0 [facility] Comment on above: Performed By: #### S URIN ####[facility] [place], [place] [address] WBC (Leukocytes) Negative Normal Negative [facility] Comment on above: Performed By: #### S URIN ####[facility] [place], [place] [address] Vital Signs Date Time Vital Sign Value Performing Clinician Facility 06-27-2025 11:45-0400 Body height 170.2 cm Kali Conklin DPM Work Phone: [facility] 06-27-2025 11:45-0400 Body mass index (BMI) [Ratio] 34.14 kg/m2 Kali Conklin DPM Work Phone: [facility] 06-27-2025 11:45-0400 Body weight 98.88 kg Kali Conklin DPM Work Phone: [facility] 06-27-2025 11:45-0400 Respiratory rate 18 /min Kali Conklin DPM Work Phone: [facility] 06-20-2025 09:38-0400 Diastolic blood pressure 74 mm[Hg] Alfonso Trujillo DO Work Phone: [facility] 06-20-2025 09:38-0400 Systolic blood pressure 122 mm[Hg] Alfonso Trujillo DO Work Phone: [facility] 06-20-2025 09:37-0400 Body height 170.2 cm Alfonso Trujillo DO Work Phone: [facility] 06-20-2025 09:37-0400 Body mass index (BMI) [Ratio] 34.74 kg/m2 Alfonso Trujillo DO Work Phone: [facility] 06-20-2025 09:37-0400 Body weight 100.61 kg Alfonso Trujillo DO Work Phone: [facility] 06-20-2025 09:37-0400 Heart rate 69 /min Alfonso Trujillo DO Work Phone: [facility] 06-11-2025 13:57-0400 Body height 170.2 cm Myragalina Daiglezer RETAIL CUSTODIAL ASSOCIATE-QUARTZ MOUNTER [facility] 06-11-2025 13:57-0400 Body mass index (BMI) [Ratio] 34.61 kg/m2 Myra Rgotzer RETAIL CUSTODIAL ASSOCIATE-QUARTZ MOUNTER [facility]: [facility] 06-11-2025 13:57-0400 Body temperature 98.8 [degF] Myra Rgotzer RETAIL CUSTODIAL ASSOCIATE-QUARTZ MOUNTER [facility] 06-11-2025 13:57-0400 Body weight 100.25 kg Myragalina Diezotzer RETAIL CUSTODIAL ASSOCIATE-QUARTZ MOUNTER [facility] 06-11-2025 13:57-0400 Diastolic blood pressure 68 mm[Hg] Myra Krotzer RETAIL CUSTODIAL ASSOCIATE-QUARTZ MOUNTER [facility] 06-11-2025 13:57-0400 Heart rate 73 /min Myra Rgotzer RETAIL CUSTODIAL ASSOCIATE-QUARTZ MOUNTER [facility] 06-11-2025 13:57-0400 Respiratory rate 20 /min Myra Krotzer RETAIL CUSTODIAL ASSOCIATE-QUARTZ MOUNTER [facility] 06-11-2025 13:57-0400 SaO2% (BldA) [Mass fraction] 96 % Myra Krotzer RETAIL CUSTODIAL ASSOCIATE-QUARTZ MOUNTER [facility] 06-11-2025 13:57-0400 Systolic blood pressure 110 mm[Hg] Myra Krotzer RETAIL CUSTODIAL ASSOCIATE-QUARTZ MOUNTER [facility] 05-28-2025 14:42-0400 Body height 170.2 cm Sascha Furlong DO Work Phone: [facility] [employer] [facility] 05-28-2025 14:42-0400 Body mass index (BMI) [Ratio] 35.01 kg/m2 Sascha Furlong DO Work Phone: [facility] [employer] [facility] 05-28-2025 14:42-0400 Body temperature 97.5 [degF] Sascha Furlong DO Work Phone: [facility] [employer] [facility] 05-28-2025 14:42-0400 Body weight 101.42 kg Sascha Furlong DO Work Phone: [facility] [employer] [facility] 05-28-2025 14:42-0400 Diastolic blood pressure 60 mm[Hg] Sascha Furlong DO Work Phone: [facility] [employer] [facility] 05-28-2025 14:42-0400 Heart rate 72 /min Sascha Furlong DO Work Phone: [facility] [employer] [facility] 05-28-2025 14:42-0400 Respiratory rate 20 /min Sascha Furlong DO Work Phone: [facility] [employer] [facility] 05-28-2025 14:42-0400 SaO2% (BldA) [Mass fraction] 96 % Sascha Furlong DO Work Phone: [facility] [employer] [facility] 05-28-2025 14:42-0400 Systolic blood pressure 118 mm[Hg] Sashca Furlong DO Work Phone: [facility] 05-15-2025 10:25-0400 Body height 170.2 cm Shabnam Connell FISHERIES DIRECTOR Work Phone: [facility] 05-15-2025 10:25-0400 Body mass index (BMI) [Ratio] 34.24 kg/m2 Shabnam Connell FISHERIES DIRECTOR Work Phone: [facility] 05-15-2025 10:25-0400 Body weight 99.16 kg Shabnam Connell FISHERIES DIRECTOR Work Phone: [facility] 05-15-2025 10:25-0400 Diastolic blood pressure 82 mm[Hg] Shabnam Connell FISHERIES DIRECTOR Work Phone: [facility] 05-15-2025 10:25-0400 Systolic blood pressure 128 mm[Hg] Shabnam Connell FISHERIES DIRECTOR Work Phone: [facility] 05-07-2025 09:30-0400 Body height 170.2 cm Sascha Furlong DO Work Phone: [facility] 05-07-2025 09:30-0400 Body mass index (BMI) [Ratio] 34.46 kg/m2 Sascha Furlong DO Work Phone: [facility] 05-07-2025 09:30-0400 Body weight 99.79 kg Sascha Furlong DO Work Phone: [facility] 05-07-2025 09:30-0400 Diastolic blood pressure 70 mm[Hg] Sascha Furlong DO Work Phone: [facility] 05-07-2025 09:30-0400 Systolic blood pressure 126 mm[Hg] Sascha Furlong DO Work Phone: [facility] 04-16-2025 16:35-0400 Body height 170.2 cm Sascha Furlong DO Work Phone: [facility] 04-16-2025 16:35-0400 Body mass index (BMI) [Ratio] 33.16 kg/m2 Sascha Furlong DO Work Phone: [facility] 04-16-2025 16:35-0400 Body temperature 97.39 [degF] Sascha Furlong DO Work Phone: [facility] 04-16-2025 16:35-0400 Body weight 96.07 kg Sascha Furlong DO Work Phone: [facility] 04-16-2025 16:35-0400 Diastolic blood pressure 70 mm[Hg] Sascha Furlong DO Work Phone: [facility] 04-16-2025 16:35-0400 Heart rate 86 /min Sascha Furlong DO Work Phone: [facility] 04-16-2025 16:35-0400 Respiratory rate 20 /min Sascha Furlong DO Work Phone: [facility] 04-16-2025 16:35-0400 SaO2% (BldA) [Mass fraction] 98 % Sascha Furlong DO Work Phone: [facility] 04-16-2025 16:35-0400 Systolic blood pressure 126 mm[Hg] Sascha Furlong DO Work Phone: [facility] 04-09-2025 16:02-0400 Body height 172.7 cm Kali Conklin DPM Work Phone: [facility] 04-09-2025 16:02-0400 Body mass index (BMI) [Ratio] 32.54 kg/m2 Kali Conklin DPM Work Phone: [facility] 04-09-2025 16:02-0400 Body weight 97.07 kg Kali Conklin DPM Work Phone: [facility] 04-09-2025 16:02-0400 Respiratory rate 16 /min Kali Conklin DPM Work Phone: [facility] 03-20-2025 10:32-0400 Body height 172.7 cm Whit Taylor MD Work Phone: [facility] 03-20-2025 10:32-0400 Body mass index (BMI) [Ratio] 32.54 kg/m2 Whit Taylor MD Work Phone: [facility] 03-20-2025 10:32-0400 Body weight 97.07 kg Whit Taylor MD Work Phone: [facility] 03-20-2025 10:32-0400 Diastolic blood pressure 64 mm[Hg] Whit Taylor MD Work Phone: [facility] 03-20-2025 10:32-0400 Systolic blood pressure 122 mm[Hg] Whit Taylor MD Work Phone: [facility] 02-25-2025 13:41-0400 Body height 170.2 cm Sascha Furlong DO Work Phone: [facility] 02-25-2025 13:41-0400 Body mass index (BMI) [Ratio] 33.35 kg/m2 Sascha Furlong DO Work Phone: [facility] 02-25-2025 13:41-0400 Body temperature 97.5 [degF] Sascha Furlong DO Work Phone: [facility] 02-25-2025 13:41-0400 Body weight 96.62 kg Sascha Furlong DO Work Phone: [facility] 02-25-2025 13:41-0400 Diastolic blood pressure 60 mm[Hg] Sascha Furlong DO Work Phone: [facility] 02-25-2025 13:41-0400 Heart rate 89 /min Sascha Furlong DO Work Phone: [facility] 02-25-2025 13:41-0400 Respiratory rate 20 /min Sascha Furlong DO Work Phone: [facility] 02-25-2025 13:41-0400 SaO2% (BldA) [Mass fraction] 96 % Sascha Furlong DO Work Phone: [facility] 02-25-2025 13:41-0400 Systolic blood pressure 118 mm[Hg] Sascha Furlong DO Work Phone: [facility] 02-21-2025 09:17-0400 Body height 172.7 cm Kali Conklin DPM Work Phone: [facility] 02-21-2025 09:17-0400 Body mass index (BMI) [Ratio] 32.84 kg/m2 Kali Conklin DPM Work Phone: [facility] 02-21-2025 09:17-0400 Body weight 97.98 kg Kali Conklin DPM Work Phone: [facility] 02-21-2025 09:17-0400 Respiratory rate 16 /min Kali Conklin DPM Work Phone: [facility] 02-16-2025 07:42-0400 Body temperature 97.8 [degF] Sascha Furlong DO Work Phone: [facility] 02-16-2025 07:42-0400 Diastolic blood pressure 81 mm[Hg] Sascha Furlong DO Work Phone: [facility] 02-16-2025 07:42-0400 Heart rate 74 /min Sascha Furlong DO Work Phone: [facility] 02-16-2025 07:42-0400 Respiratory rate 16 /min Sascha Furlong DO Work Phone: [facility] 02-16-2025 07:42-0400 SaO2% (BldA) [Mass fraction] 97 % Sascha Furlong DO Work Phone: [facility] 02-16-2025 07:42-0400 Systolic blood pressure 145 mm[Hg] Sascha Furlong DO Work Phone: [facility] 02-16-2025 05:51-0400 Body weight 100.9 kg Sascha Furlong DO Work Phone: [facility] 02-15-2025 14:59-0400 Body height 172.72 cm Sascha Furlong DO Work Phone: [facility] 02-15-2025 14:59-0400 Body temperature 98 [degF] Sascha Furlong DO Work Phone: [facility] 02-15-2025 14:59-0400 Body weight 98 kg Sascha Furlong DO Work Phone: [facility] 02-15-2025 14:59-0400 Diastolic blood pressure 88 mm[Hg] Sascha Furlong DO Work Phone: [facility] 02-15-2025 14:59-0400 Heart rate 70 /min Sascha Furlong DO Work Phone: [facility] 02-15-2025 14:59-0400 Respiratory rate 18 /min Sascha Furlong DO Work Phone: [facility] 02-15-2025 14:59-0400 SaO2% (BldA) [Mass fraction] 97 % Sascha Furlong DO Work Phone: [facility] 02-15-2025 14:59-0400 Systolic blood pressure 145 mm[Hg] Sascha Furlong DO Work Phone: [facility] 02-07-2025 10:07-0400 Body height 172.7 cm Kali Conklin DPM Work Phone: [facility] 02-07-2025 10:07-0400 Body mass index (BMI) [Ratio] 32.84 kg/m2 Kali Conklin DPM Work Phone: [facility] 02-07-2025 10:07-0400 Body weight 97.98 kg Kali Conklin DPM Work Phone: [facility] 02-07-2025 10:07-0400 Diastolic blood pressure 78 mm[Hg] Kali Conklin DPM Work Phone: [facility] 02-07-2025 10:07-0400 Heart rate 78 /min Kali Conklin DPM Work Phone: [facility] 02-07-2025 10:07-0400 Systolic blood pressure 126 mm[Hg] Kali Conklin DPM Work Phone: [facility] 01-30-2025 16:47-0400 Body height 172.7 cm Kali Conklin DPM Work Phone: [facility] 01-30-2025 16:47-0400 Body mass index (BMI) [Ratio] 32.84 kg/m2 Kali Conklin DPM Work Phone: [facility] 01-30-2025 16:47-0400 Body weight 97.98 kg Kali Conklni DPM Work Phone: [facility] 01-30-2025 16:47-0400 Respiratory rate 18 /min Kali Conklin DPM Work Phone: [facility] 01-29-2025 14:02-0400 SaO2% (BldA) [Mass fraction] 96 % Sascha Furlong DO Work Phone: [facility] 01-29-2025 13:57-0400 Body height 170.2 cm Sascha Furlong DO Work Phone: [facility] [employer] [facility] 01-29-2025 13:57-0400 Body mass index (BMI) [Ratio] 33.66 kg/m2 Sascha Furlong DO Work Phone: [facility] 01-29-2025 13:57-0400 Body temperature 97.39 [degF] Sascha Furlong DO Work Phone: [facility] 01-29-2025 13:57-0400 Body weight 97.52 kg Sascha Furlong DO Work Phone: [facility] 01-29-2025 13:57-0400 Respiratory rate 20 /min Sascha Furlong DO Work Phone: [facility] 01-25-2025 11:32-0500 Body height 170.2 cm Sascha Furlong DO Work Phone: [facility] 01-25-2025 11:32-0500 Body mass index (BMI) [Ratio] 34.51 kg/m2 Sascha Furlong DO Work Phone: [facility] [employer] [facility] 01-25-2025 11:32-0500 Body temperature 98.1 [degF] Sascha Furlong DO Work Phone: [facility] 01-25-2025 11:32-0500 Body weight 99.97 kg Sascha Furlong DO Work Phone: [facility] 01-25-2025 11:32-0500 Diastolic blood pressure 60 mm[Hg] Sascha Furlong DO Work Phone: [facility] 01-25-2025 11:32-0500 Heart rate 82 /min Sascha Furlong DO Work Phone: [facility] 01-25-2025 11:32-0500 Respiratory rate 20 /min Sascha Furlong DO Work Phone: [facility] 01-25-2025 11:32-0500 SaO2% (BldA) [Mass fraction] 98 % Sascha Furlong DO Work Phone: [facility] 01-25-2025 11:32-0500 Systolic blood pressure 140 mm[Hg] Sascha Furlong DO Work Phone: [facility] 01-24-2025 11:01-0500 Body height 172.7 cm Kali Conklin DPM Work Phone: [facility] 01-24-2025 11:01-0500 Body mass index (BMI) [Ratio] 32.84 kg/m2 Kali Conklin DPM Work Phone: [facility] 01-24-2025 11:01-0500 Body weight 97.98 kg Kali Conklin DPM Work Phone: [facility] 01-24-2025 11:01-0500 Respiratory rate 18 /min Kali Conklin DPM Work Phone: [facility] 01-12-2025 15:54-0500 Diastolic blood pressure 79 mm[Hg] Sascha Furlong DO Work Phone: [facility] 01-12-2025 15:54-0500 Heart rate 72 /min Sascha Furlong DO Work Phone: [facility] 01-12-2025 15:54-0500 Respiratory rate 20 /min Sascha Furlong DO Work Phone: [facility] 01-12-2025 15:54-0500 SaO2% (BldA) [Mass fraction] 97 % Sascha Furlong DO Work Phone: [facility] 01-12-2025 15:54-0500 Systolic blood pressure 133 mm[Hg] Sascha Furlong DO Work Phone: [facility] 01-12-2025 12:50-0500 Body height 172.72 cm Sascha Furlong DO Work Phone: [facility] 01-12-2025 12:50-0500 Body temperature 97.6 [degF] Sascha Furlong DO Work Phone: [facility] 01-12-2025 12:50-0500 Body weight 95.25 kg Sascha Furlong DO Work Phone: [facility] 01-12-2025 11:46-0500 Body temperature 97.9 [degF] Sascha Furlong DO Work Phone: [facility] 01-12-2025 11:46-0500 Body weight 98.42 kg Sascha Furlong DO Work Phone: [facility] 01-12-2025 11:46-0500 Diastolic blood pressure 77 mm[Hg] Sascha Furlong DO Work Phone: [facility] 01-12-2025 11:46-0500 Heart rate 80 /min Sascha Furlong DO Work Phone: [facility] 01-12-2025 11:46-0500 SaO2% (BldA) [Mass fraction] 97 % Sascha Furlong DO Work Phone: [facility] 01-12-2025 11:46-0500 Systolic blood pressure 132 mm[Hg] Sascha Marielong DO Work Phone: [facility] 01-10-2025 13:21-0500 Body height 172.7 cm Kali Conklin DPM Work Phone: [facility] 01-10-2025 13:21-0500 Body mass index (BMI) [Ratio] 32.84 kg/m2 Kali Conklin DPM Work Phone: [facility] 01-10-2025 13:21-0500 Body weight 97.98 kg Kali Conklin DPM Work Phone: [facility] 01-10-2025 13:21-0500 Respiratory rate 18 /min Kali Conklin DPM Work Phone: [facility] 12-19-2024 11:39-0500 Body height 172.7 cm Whit Taylor MD Work Phone: [facility] 12-19-2024 11:39-0500 Body mass index (BMI) [Ratio] 32.84 kg/m2 Whit Taylor MD Work Phone: [facility] 12-19-2024 11:39-0500 Body weight 97.98 kg Whit Taylor MD Work Phone: [facility] 12-17-2024 14:20-0500 Body height 172.7 cm Carlos Murcek DO Work Phone: [facility] 12-17-2024 14:20-0500 Body mass index (BMI) [Ratio] 32.99 kg/m2 Carlos Murcek DO Work Phone: [facility] 12-17-2024 14:20-0500 Body weight 98.43 kg Carlos Murcek DO Work Phone: [facility] 12-17-2024 10:11-0500 Body height 170.2 cm Sascha Furlong [facility] 12-17-2024 10:11-0500 Body mass index (BMI) [Ratio] 33.48 kg/m2 Sascha Furlong DO [facility] 12-17-2024 10:11-0500 Body temperature 97.59 [degF] Sascha Furlong DO [facility] 12-17-2024 10:11-0500 Body weight 96.98 kg Sascha Furlong DO Work Phone: [facility] [employer] 12-17-2024 10:11-0500 Diastolic blood pressure 68 mm[Hg] Sascha Furlong DO Work Phone: [facility] [employer] 12-17-2024 10:11-0500 Heart rate 86 /min Sascha Progressive Financelong DO [facility] 12-17-2024 10:11-0500 Respiratory rate 20 /min Sascha Progressive Financelong DO Work Phone: [facility] [employer] 12-17-2024 10:11-0500 SaO2% (BldA) [Mass fraction] 96 % Sascha Furlong DO Work Phone: [facility] [employer] 12-17-2024 10:11-0500 Systolic blood pressure 120 mm[Hg] Sascha Furlong DO Work Phone: [facility] [employer] 12-06-2024 09:58-0500 Body height 172.7 cm Kali Conklin DPM Work Phone: [facility] 12-06-2024 09:58-0500 Body mass index (BMI) [Ratio] 32.99 kg/m2 Kali Conklin DPM Work Phone: [facility] 12-06-2024 09:58-0500 Body weight 98.43 kg Kali Conklin DPM Work Phone: [facility] 12-06-2024 09:58-0500 Respiratory rate 16 /min Kali Conklin DPM Work Phone: [facility] 11-01-2024 12:55-0500 Body mass index (BMI) [Ratio] 32.99 kg/m2 Kali Conklin DPM Work Phone: [facility] 11-01-2024 12:55-0500 Body weight 98.43 kg Kali Conklin DPM Work Phone: [facility] 10-15-2024 09:44-0500 Body height 172.7 cm Whit Taylor MD Work Phone: [facility] 10-15-2024 09:44-0500 Body mass index (BMI) [Ratio] 33.12 kg/m2 Whit Taylor MD Work Phone: [facility] 10-15-2024 09:44-0500 Body weight 98.79 kg Whit Taylor MD Work Phone: [facility] 10-09-2024 14:06-0500 Body height 170.2 cm Sascha Furlong DO Work Phone: [facility] 10-09-2024 14:06-0500 Body mass index (BMI) [Ratio] 34.43 kg/m2 Sascha Furlong DO Work Phone: [facility] 10-09-2024 14:06-0500 Body temperature 97.39 [degF] Sascha Furlong DO Work Phone: [facility] 10-09-2024 14:06-0500 Body weight 99.7 kg Sascha Furlong DO Work Phone: [facility] 10-09-2024 14:06-0500 Diastolic blood pressure 60 mm[Hg] Sascha Furlong DO Work Phone: [facility] 10-09-2024 14:06-0500 Heart rate 90 /min Sascha Furlong DO [facility] 10-09-2024 14:06-0500 Respiratory rate 22 /min Sascha Furlong DO Work Phone: [facility] [employer] [facility] 10-09-2024 14:06-0500 SaO2% (BldA) [Mass fraction] 97 % Sascha Furlong DO Work Phone: [facility] [employer] 10-09-2024 14:06-0500 Systolic blood pressure 110 mm[Hg] Sascha Furlong DO Work Phone: [facility] [employer] [facility] 09-24-2024 13:38-0500 Body mass index (BMI) [Ratio] 34.05 kg/m2 Sascha Furlong DO Work Phone: [facility] [employer] 09-24-2024 13:38-0500 Body temperature 98.1 [degF] Sascha Furlong DO Work Phone: [facility] [employer] [facility] 09-24-2024 13:38-0500 Body weight 98.61 kg Sascha Furlong DO Work Phone: [facility] [employer] 09-24-2024 13:38-0500 Diastolic blood pressure 60 mm[Hg] Sascha Furlong DO [facility] 09-24-2024 13:38-0500 Heart rate 80 /min Sascha Furlong DO Work Phone: [facility] [employer] [facility] 09-24-2024 13:38-0500 SaO2% (BldA) [Mass fraction] 95 % Sascha Furlong DO Work Phone: [facility] [employer] 09-24-2024 13:38-0500 Systolic blood pressure 108 mm[Hg] Sascha Furlong DO Work Phone: [facility] [employer] [facility] 09-19-2024 09:08-0400 Body height 172.72 cm MD Edenilson Mcleod Work Phone: [facility] 09-19-2024 09:08-0400 Body mass index (BMI) [Ratio] 32.2 kg/m2 MD Edenilson Mcleod Work Phone: [facility] 09-19-2024 09:08-0400 Body temperature 97.7 [degF] MD Edenilson Mcleod Work Phone: [facility] 09-19-2024 09:08-0400 Body weight 96.16 kg MD Edenilson Mcleod Work Phone: [facility] 09-19-2024 09:08-0400 Diastolic blood pressure 76 mm[Hg] MD Edenilson Mcleod Work Phone: [facility] 09-19-2024 09:08-0400 Heart rate 85 /min MD Edenilson Mcleod Work Phone: [facility] 09-19-2024 09:08-0400 Respiratory rate 18 /min MD Edenilson Mcleod Work Phone: [facility] 09-19-2024 09:08-0400 SaO2% (BldA) [Mass fraction] 94 % MD Edenilson Mcleod Work Phone: [facility] 09-19-2024 09:08-0400 Systolic blood pressure 124 mm[Hg] MD Edenilson Mcleod Work Phone: [facility] 09-03-2024 10:01-0400 Blood Pressure Location Zac MUNIZ [facility] 09-03-2024 10:01-0400 Body temperature 98.6 [degF] Zac MUNIZ [facility] 09-03-2024 10:01-0400 Diastolic blood pressure 77 mm[Hg] Zac MUNIZ [facility] 09-03-2024 10:01-0400 Heart rate 71 /min Zac MUNIZ [facility] 09-03-2024 10:01-0400 Respiratory rate 16 /min Zac FLAVIO [facility] 09-03-2024 10:01-0400 Systolic blood pressure 129 mm[Hg] Zac MUNIZ [facility] 08-29-2024 10:46-0400 Body height 172.72 cm MD Edenilson Mcleod Work Phone: [facility] 08-29-2024 10:46-0400 Body mass index (BMI) [Ratio] 32.2 kg/m2 MD Edenilson Mcleod Work Phone: [facility] 08-29-2024 10:46-0400 Body weight 96.16 kg MD Edenilson Mcleod Work Phone: [facility] 08-17-2024 14:21-0400 Body height 172.7 cm Kali Conklin DPM Work Phone: [facility] 08-17-2024 14:21-0400 Body mass index (BMI) [Ratio] 32.39 kg/m2 Kali Conklin DPM Work Phone: [facility] 08-17-2024 14:21-0400 Body weight 96.62 kg Kali Conklin DPM Work Phone: [facility] 08-17-2024 14:21-0400 Diastolic blood pressure 82 mm[Hg] Kali Conklin DPM Work Phone: [facility] 08-17-2024 14:21-0400 Heart rate 74 /min Kali Conklin DPM Work Phone: [facility] 08-17-2024 14:21-0400 Respiratory rate 18 /min Kali Conklin DPM Work Phone: [facility] 08-17-2024 14:21-0400 Systolic blood pressure 124 mm[Hg] Kali Conklin DPM Work Phone: [facility] 06-14-2024 14:16-0400 Body height 170.2 cm Sascha Furlong DO Work Phone: [facility] 06-14-2024 14:16-0400 Body mass index (BMI) [Ratio] 33.3 kg/m2 Sascha Furlong DO Work Phone: [facility] 06-14-2024 14:16-0400 Body temperature 97.9 [degF] Sascha Furlong DO Work Phone: [facility] 06-14-2024 14:16-0400 Body weight 96.44 kg Sacsha Furlong DO Work Phone: [facility] 06-14-2024 14:16-0400 Diastolic blood pressure 60 mm[Hg] Sascha Furlong DO Work Phone: [facility] 06-14-2024 14:16-0400 Heart rate 70 /min Sascha Furlong DO Work Phone: [facility] 06-14-2024 14:16-0400 Respiratory rate 18 /min Sascha Furlong DO Work Phone: [facility] 06-14-2024 14:16-0400 SaO2% (BldA) [Mass fraction] 99 % Sascha Furlong DO Work Phone: [facility] 06-14-2024 14:16-0400 Systolic blood pressure 100 mm[Hg] Sascha Furlong DO Work Phone: [facility] 05-28-2024 08:56-0400 Body height 172.72 cm DO Sascha Furlong Work Phone: [facility] 05-28-2024 08:56-0400 Body mass index (BMI) [Ratio] 31.8 kg/m2 DO Sascha Furlong Work Phone: [facility] 05-28-2024 08:56-0400 Body weight 95 kg DO Sascha Furlong Work Phone: [facility] 05-15-2024 14:48-0400 Blood Pressure Location LEAH BILL [facility] 05-15-2024 14:48-0400 Diastolic blood pressure 78 mm[Hg] LEAH BILL [facility] 05-15-2024 14:48-0400 Heart rate 80 /min LEAH BILL [facility] 05-15-2024 14:48-0400 Respiratory rate 16 /min LEAH BILL [facility] 05-15-2024 14:48-0400 Systolic blood pressure 132 mm[Hg] LEAH BILL [facility] 05-01-2024 10:16-0400 Body height 172.7 cm Sascha Furlong DO Work Phone: [facility] 05-01-2024 10:16-0400 Body mass index (BMI) [Ratio] 32.34 kg/m2 Sascha Furlong DO Work Phone: [facility] 05-01-2024 10:16-0400 Body weight 96.44 kg Sascha Furlong DO Work Phone: [facility] 05-01-2024 10:16-0400 Diastolic blood pressure 68 mm[Hg] Sascha Furlong DO Work Phone: [facility] 05-01-2024 10:16-0400 Systolic blood pressure 122 mm[Hg] Sascha Furlong DO Work Phone: [facility] 04-24-2024 10:48-0400 Body height 172.72 cm DO Sascha [employer] Work Phone: [facility] 04-24-2024 10:48-0400 Body mass index (BMI) [Ratio] 32.1 kg/m2 DO Sascha [employer] Work Phone: [facility] 04-24-2024 10:48-0400 Body weight 95.76 kg DO Sascha [employer] Work Phone: [facility] 04-09-2024 12:35-0400 Diastolic blood pressure 68 mm[Hg] DO Sascha [employer] Work Phone: [facility] 04-09-2024 12:35-0400 Heart rate 63 /min DO [employer] Work Phone: [facility] 04-09-2024 12:35-0400 Respiratory rate 16 /min DO [employer] Work Phone: [facility] 04-09-2024 12:35-0400 SaO2% (BldA) [Mass fraction] 98 % DO [employer] Work Phone: [facility] 04-09-2024 12:35-0400 Systolic blood pressure 107 mm[Hg] DO Sascha [employer] Work Phone: [facility] 04-09-2024 12:05-0400 Inhaled oxygen flow rate 4 L/min DO [employer] Work Phone: [facility] 04-09-2024 10:16-0400 Body height 172.72 cm DO SaschaCytodynlong Work Phone: [facility] 04-09-2024 10:16-0400 Body mass index (BMI) [Ratio] 32.1 kg/m2 DO Sascha [employer] Work Phone: [facility] 04-09-2024 10:16-0400 Body weight 96 kg DO SaschaCytodynlong Work Phone: [facility] 04-09-2024 09:12-0400 Body temperature 97.8 [degF] DO Sascha Furlong Work Phone: [facility] 03-29-2024 11:07-0400 Body height 172.72 cm DO Sascha Furlong Work Phone: [facility] 03-29-2024 [id number] Body mass index (BMI) [Ratio] 32.2 kg/m2 DO Sascha Furlong Work Phone: [facility] 03-29-2024 [id number] Body weight 96.16 kg DO Sascha Furlong Work Phone: [facility] 03-20-2024 12:09-0400 Blood Pressure Location Daria Orzech [facility] 03-20-2024 12:09-0400 Body temperature 97.52 [degF] Daria Orzech [facility] 03-20-2024 12:09-0400 Diastolic blood pressure 74 mm[Hg] Daria Orzech [facility] 03-20-2024 12:09-0400 Heart rate 73 /min Daria Orzech [facility] 03-20-2024 12:09-0400 Respiratory rate 19 /min Daria Orzech [facility] 03-20-2024 12:09-0400 Systolic blood pressure 124 mm[Hg] Daria Orzech [facility] 02-21-2024 10:29-0400 Body height 172.72 cm DO Sascha Furlong Work Phone: [facility] 02-21-2024 10:29-0400 Body mass index (BMI) [Ratio] 32.6 kg/m2 DO Sascha Furlong Work Phone: [facility] 02-21-2024 10:29-0400 Body weight 97.52 kg DO Sascha Furlong Work Phone: [facility] 02-09-2024 13:46-0400 Body height 172.72 cm DO Sascha Furlong Work Phone: [facility] 02-09-2024 13:46-0400 Body mass index (BMI) [Ratio] 32.3 kg/m2 DO Sascha Furlong Work Phone: [facility] 02-09-2024 13:46-0400 Body weight 96.61 kg DO Sascha Furlong Work Phone: [facility] 01-02-2024 23:55-0500 Body height 172.72 cm DO Sascha Furlong Work Phone: [facility] 01-02-2024 23:55-0500 Body temperature 97.4 [degF] DO Sascha Furlong Work Phone: [facility] 01-02-2024 23:55-0500 Body weight 100.3 kg DO Sascha Furlong Work Phone: [facility] 01-02-2024 23:55-0500 Diastolic blood pressure 100 mm[Hg] DO Sascha Furlong Work Phone: [facility] 01-02-2024 23:55-0500 Heart rate 74 /min DO Sascha Furlong Work Phone: [facility] 01-02-2024 23:55-0500 Respiratory rate 20 /min DO Sascha Furlong Work Phone: [facility] 01-02-2024 23:55-0500 SaO2% (BldA) [Mass fraction] 96 % DO Sascha Furlong Work Phone: [facility] 01-02-2024 23:55-0500 Systolic blood pressure 155 mm[Hg] DO Sascha Furlong Work Phone: [facility] 12-30-2023 09:40-0500 Body height 172.72 cm [employer] Other [email or web address] Other 12-30-2023 09:40-0500 Body mass index (BMI) [Ratio] 32.99 kg/m2 [employer] Other [email or web address] Other 12-30-2023 09:40-0500 Body weight 98.43 kg [employer] Other [email or web address] Other 12-14-2023 09:34-0500 Body height 172.7 cm Sascha Furlong DO Work Phone: [employer] 12-14-2023 09:34-0500 Body mass index (BMI) [Ratio] 33.49 kg/m2 Sascha Furlong DO Work Phone: [employer] 12-14-2023 09:34-0500 Body temperature 97.59 [degF] Sascha Furlong DO Work Phone: [employer] 12-14-2023 09:34-0500 Body weight 99.88 kg Sascha Furlong DO Work Phone: [employer] 12-14-2023 09:34-0500 Diastolic blood pressure 68 mm[Hg] Sascha Furlong DO Work Phone: [employer] 12-14-2023 09:34-0500 Heart rate 75 /min Sascha Furlong DO Work Phone: [employer] 12-14-2023 09:34-0500 Respiratory rate 20 /min Sascha Furlong DO Work Phone: [facility] 12-14-2023 09:34-0500 SaO2% (BldA) [Mass fraction] 96 % Sascha Furlong DO Work Phone: [facility] 12-14-2023 09:34-0500 Systolic blood pressure 122 mm[Hg] Sascha Furlong DO Work Phone: [facility] 09-19-2023 09:39-0400 Blood Pressure Location Zac MUNIZ [facility] 09-19-2023 09:39-0400 Diastolic blood pressure 77 mm[Hg] Zac MUNIZ [facility] 09-19-2023 09:39-0400 Heart rate 64 /min Zac MUNIZ [facility] 09-19-2023 09:39-0400 Respiratory rate 16 /min Zac MUNIZ [facility] 09-19-2023 09:39-0400 Systolic blood pressure 126 mm[Hg] Zac MUNIZ [facility] 05-18-2023 09:00-0400 Body weight 20 mg DO Sascha Furlong Work Phone: [facility] 05-09-2023 10:34-0400 Body height 172.72 cm Sascha G Furlong Work Phone: [facility] [facility] DO Work Phone: 05-09-2023 10:34-0400 Body mass index (BMI) [Ratio] 32.54 kg/m2 Sascha G Furlong Work Phone: [facility] 250 DO Work Phone: 05-09-2023 10:34-0400 Body surface area Derived from formula 2.1 m2 Sascha G Furlong Work Phone: [facility] 250 DO Work Phone: 05-09-2023 10:34-0400 Body weight 97.07 kg Sascha G Furlong Work Phone: [facility] 250 DO Work Phone: 05-09-2023 10:34-0400 Diastolic blood pressure 60 mm[Hg] Sascha G Furlong Work Phone: [facility] [facility] DO Work Phone: 05-09-2023 10:34-0400 Heart rate 78 /min Sascha G Furlong Work Phone: [facility] [facility] DO Work Phone: 05-09-2023 10:34-0400 Systolic blood pressure 88 mm[Hg] Sascha G Furlong Work Phone: [facility] [facility] DO Work Phone: 05-07-2023 19:59-0400 Diastolic blood pressure 67 mm[Hg] DO Sascha Furlong Work Phone: [facility] 05-07-2023 19:59-0400 Heart rate 68 /min DO Sascha Furlong Work Phone: [facility] 05-07-2023 19:59-0400 Respiratory rate 18 /min DO Sascha Furlong Work Phone: [facility] 05-07-2023 19:59-0400 SaO2% (BldA) [Mass fraction] 96 % DO Sascha Furlong Work Phone: [facility] 05-07-2023 19:59-0400 Systolic blood pressure 122 mm[Hg] DO Sascha Furlong Work Phone: [facility] 05-07-2023 18:27-0400 Body height 172.72 cm DO Sascha Furlong Work Phone: [facility] 05-07-2023 18:27-0400 Body temperature 99 [degF] DO Sascha Furlong Work Phone: [facility] 05-07-2023 18:27-0400 Body weight 94.95 kg DO Sascha Furlong Work Phone: [facility] 05-03-2023 05:30-0400 Diastolic blood pressure 60 mm[Hg] DO Sascha Furlong Work Phone: [facility] 05-03-2023 05:30-0400 Heart rate 74 /min DO Sascha Furlong Work Phone: [facility] 05-03-2023 05:30-0400 Respiratory rate 18 /min DO Sascha Furlong Work Phone: [facility] 05-03-2023 05:30-0400 SaO2% (BldA) [Mass fraction] 96 % DO Sascha Furlong Work Phone: [facility] 05-03-2023 05:30-0400 Systolic blood pressure 101 mm[Hg] DO Sascha Furlong Work Phone: [facility] 05-03-2023 02:29-0400 Body height 172.72 cm DO Sascha Furlong Work Phone: [facility] 05-03-2023 02:29-0400 Body temperature 97.9 [degF] DO Sascha Furlong Work Phone: [facility] 05-03-2023 02:29-0400 Body weight 97.52 kg DO Sascha Furlong Work Phone: [facility] 04-04-2023 15:54-0400 Diastolic blood pressure 55 mm[Hg] DO Sascha Furlong Work Phone: [facility] 04-04-2023 15:54-0400 Heart rate 54 /min DO Sascha Furlong Work Phone: [facility] 04-04-2023 15:54-0400 Respiratory rate 16 /min DO Sascha Furlong Work Phone: [facility] 04-04-2023 15:54-0400 SaO2% (BldA) [Mass fraction] 95 % DO Sascha Furlong Work Phone: [facility] 04-04-2023 15:54-0400 Systolic blood pressure 98 mm[Hg] DO Sascha Furlong Work Phone: [facility] 04-04-2023 09:55-0400 Body height 172.72 cm DO Sascha Furlong Work Phone: [facility] 04-04-2023 09:55-0400 Body temperature 97.5 [degF] DO Sascha Furlong Work Phone: [facility] 04-04-2023 09:55-0400 Body weight 98.7 kg DO Sascha Furlong Work Phone: [facility] 03-30-2023 11:00-0400 Body height 172.72 cm Sascha G Furlong Work Phone: [facility] [employer] 250 DO Work Phone: 03-30-2023 11:00-0400 Body mass index (BMI) [Ratio] 32.99 kg/m2 Sascha G Furlong Work Phone: [facility] [employer] 250 DO Work Phone: 03-30-2023 11:00-0400 Body surface area Derived from formula 2.12 m2 Sascha G Furlong Work Phone: [facility] [employer] 250 DO Work Phone: 03-30-2023 11:00-0400 Body weight 98.43 kg Sascha Candelaria Furlong Work Phone: [facility] 250 DO Work Phone: 03-30-2023 11:00-0400 Diastolic blood pressure 70 mm[Hg] Sascha G Furlong Work Phone: [facility] 250 DO Work Phone: 03-30-2023 11:00-0400 Diastolic blood pressure 82 mm[Hg] Sascha G Furlong Work Phone: [facility] 250 DO Work Phone: 03-30-2023 11:00-0400 Heart rate 63 /min Sascha Candelaria Furlong Work Phone: [facility] [employer] 250 DO Work Phone: 03-30-2023 11:00-0400 Systolic blood pressure 126 mm[Hg] Sascha Candelaria Furlong Work Phone: [facility] [employer] [facility] DO Work Phone: 03-30-2023 11:00-0400 Systolic blood pressure 134 mm[Hg] Sascha Candelaria Furlong Work Phone: [facility] [facility] DO Work Phone: 03-24-2023 11:00-0400 54 1 Sascha Candelaria Furlong Work Phone: [facility] [employer] 250 DO Work Phone: Comment on above: [id number] Encounters Encounter Date Encounter Type Care Provider Facility Start: 07-19-2025 ambulatory Zac Sinhai ty:RAGINI Quinonesue Start: 07-01-2025 ambulatory Zac Carey ty:EU Dennise Start: 06-27-2025 End: 06-27-2025 Augie Conklin DPM Work Phone: [facility] Start: 06-27-2025 End: 06-27-2025 Bamboo flowsheet Kali Conklin DPM Work Phone: [facility] Start: 06-27-2025 End: 06-27-2025 Office outpatient visit 10 minutes Kali Conklin DPM Work Phone: [facility] Comment on above: Tenosynovitis of rig ht lower leg (Primary Dx); Pain due to onychomycosis of toenails of both feet; Xerosis cutis; Su splint, right, initial encounter; 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 Start: 06-27-2025 End: 06-27-2025 ambulatory KALI CONKLIN Not Available Start: 06-27-2025 ambulatory Zac Carey ty:[id number] Start: 06-25-2025 End: 06-25-2025 Patient encounter procedure Melanie Trujillo DO -Ultrasound [facility] Work Phone: Start: 06-25-2025 End: 06-25-2025 ambulatory Sascha Sutton DO Work Phone: [facility] Work Phone: Start: 06-25-2025 End: 06-25-2025 ambulatory [facility] Ambulatory Start: 06-20-2025 End: 06-20-2025 Office consultation new/estab patient 80 min Alfonso Trujillo DO Work Phone: [facility] Comment on above: Preop cardiovascular exam; Syncope, unspecified syncope type; Mixed hyperlipidemia; Essential (primary) hypertension; PVC (premature ventricular contraction); Systemic lupus erythematosus, unspecified SLE type, unspecified organ involvement status (Multi); BMI 34.0-34.9,adult; Former smoker Start: 06-20-2025 End: 06-20-2025 Patient encounter status Alfonso Trujillo DO Work Phone: [facility] Start: 06-20-2025 End: 06-20-2025 ambulatory [facility] Ambulatory Start: 06-20-2025 End: 06-20-2025 Encounter for preprocedural cardiovascular examination [facility] Ambulatory Start: 06-12-2025 End: 06-12-2025 ambulatory Zac R MUNIZ Facility: [place] Start: 06-12-2025 End: 06-12-2025 Patient encounter procedure Zac MUNIZ [facility] Start: 06-11-2025 End: 06-11-2025 [facility] [employer] Work Phone: [facility] Comment on above: Hospital discharge f ollow-up (Primary Dx); Syncope, unspecified syncope type Start: 06-11-2025 End: 06-11-2025 ambulatory [facility] Start: 06-01-2025 End: 06-03-2025 Refill Kali Conklin DPM Work Phone: [facility] [place] [facility] Comment on above: Tenosynovitis of rig ht lower leg Start: 05-28-2025 End: 05-28-2025 Office outpatient visit 15 minutes Sascha Sutton DO Work Phone: [facility] Comment on above: Moderate persistent asthma, unspecified whether complicated (Primary Dx); Class 2 severe obesity due to excess calories with serious comorbidity and body mass index (BMI) of 35.0 to 35.9 in adult ([facility] Start: 05-28-2025 End: 05-28-2025 ambulatory [facility] Start: 05-27-2025 End: 05-27-2025 Refill Sascha Kwanng DO Work Phone: [facility] Start: 05-15-2025 End: 05-15-2025 Bamboo flowsheet Shabnam Connell FISHERIES DIRECTOR Work Phone: [facility] Start: 05-15-2025 End: 05-15-2025 Bamboo flowsheet Shabnam Connell FISHERIES DIRECTOR Work Phone: [facility] Start: 05-15-2025 End: 05-15-2025 Office outpatient visit 25 minutes Shabnam Connell FISHERIES DIRECTOR Work Phone: [facility] Comment on above: Intention tremor (Pr imary Dx); Polyneuropathy Start: 05-15-2025 End: 05-15-2025 ambulatory SHABNAM CONNELL Not Available Start: 05-07-2025 End: 05-07-2025 Patient encounter procedure Sascha Sutton DO Work Phone: [facility] Comment on above: Medicare annual well ness visit, subsequent (Primary Dx); Screening for depression Start: 05-07-2025 End: 05-07-2025 ambulatory KELLEY Teagan [facility] Start: 05-01-2025 Non-patient / Non-visit Sascha Kwanng DO Work Phone: [facility] Work Phone: Start: 05-01-2025 End: 05-01-2025 Patient encounter procedure Saschaabelardo Kwanng DO Work Phone: [facility] Work Phone: Start: 05-01-2025 End: 05-01-2025 ambulatory Sascha Furlong DO Work Phone: [facility] Work Phone: Start: 04-29-2025 End: 04-29-2025 ambulatory Zac MUNIZ Facility:[facility] Start: 04-29-2025 End: 04-29-2025 Patient encounter procedure Zac MUNIZ [facility] Start: 04-18-2025 End: 04-18-2025 Patient encounter procedure Sascha Marielong DO Work Phone: [facility] [address] Work Phone: Start: 04-18-2025 End: 04-18-2025 ambulatory Sascha Sutton DO Work Phone: [facility] Work Phone: Start: 04-18-2025 Registered Recurring Sascha mcarthur DO Work Phone: [facility]-Physical Therapy [facility] [place] Start: 04-16-2025 End: 04-16-2025 Office outpatient visit 15 minutes Sascha Sutton DO Work Phone: [facility] Comment on above: Lumbar radiculopathy (Primary Dx); Pain of right lower leg Start: 04-16-2025 End: 04-16-2025 ambulatory SASCHA Teagan [facility] Start: 04-10-2025 End: 04-17-2025 Telephone encounter Carmen Neff [facility] Start: 04-10-2025 End: 04-10-2025 Patient encounter procedure Sascha Sutotn DO Work Phone: [facility] Work Phone: Start: 04-10-2025 End: 04-10-2025 ambulatory Sascha Sutton DO Work Phone: [facility] Work Phone: Start: 04-09-2025 End: 04-09-2025 Office outpatient visit 15 minutes Kali Conklin DPM Work Phone: [facility] Comment on above: Tenosynovitis of rig [...] [place] [facility] Start: 04-09-2025 Registered Recurring Sascha Fu rlong DO Work Phone: [facility]Physical Therapy [facility] Start: 03-27-2025 End: 03-27-2025 ambulatory Sascha Furlong DO Work Phone: [facility] Work Phone: Start: 03-27-2025 End: 03-27-2025 Patient encounter procedure Sascha Furlong DO Work Phone: [facility] Work Phone: Start: 03-26-2025 Registered Recurring Sascha Fu rlong DO Work Phone: [facility]-Physical Therapy [facility] Start: 03-20-2025 End: 03-20-2025 Bamboo flowsheet Whit Taylor MD Work Phone: [facility] Start: 03-20-2025 End: 03-20-2025 Bamboo flowsheet Whit Taylor MD Work Phone: [facility] Start: 03-20-2025 End: 03-20-2025 ambulatory WHIT TAYLOR Not Available Start: 03-20-2025 End: 03-20-2025 Office outpatient visit 25 minutes Whit Taylor MD Work Phone: [facility] Comment on above: Piriformis syndrome of right side (Primary Dx); Intention tremor Start: 03-13-2025 Non-patient / Non-visit Sascha Furlong DO Work Phone: [facility] Work Phone: Start: 03-04-2025 End: 03-04-2025 Telephone encounter Marian Guajardo FISHERIES DIRECTOR Work Phone: [facility] Start: 02-25-2025 End: 02-25-2025 Transitional care manage srvc 14 day discharge Sascha Sutton DO Work Phone: [facility] - [facility] Comment on above: Other chest pain (Pr imary Dx); Thoracic region somatic dysfunction; Essential hypertension Start: 02-25-2025 End: 02-25-2025 ambulatory SASCHA SUTOTN [facility] Start: 02-24-2025 End: 02-24-2025 Refill Sascha Sutton DO Work Phone: [facility] - Family Medicine [...] 02-21-2025 ambulatory Sascha Furlong DO Work Phone: [facility] Work Phone: Start: 02-21-2025 End: 02-21-2025 Patient encounter procedure Sascha Furlong DO Work Phone: [facility] Work Phone: Start: 02-15-2025 End: 02-16-2025 ambulatory Marley Dumont Facility:[facility] Start: 02-15-2025 End: 02-16-2025 Evaluation and management of inpatient Sascha Furlong DO Work Phone: [facility] [place] [facility] Work Phone: Start: 02-15-2025 End: 02-16-2025 observation encounter Sascha Furlong DO Work Phone: [facility] Work Phone: Start: 02-08-2025 End: 02-08-2025 ambulatory Sascha Furlong DO Work Phone: [facility] Work Phone: Start: 02-08-2025 End: 02-08-2025 Patient encounter procedure Sascha Furlong DO Work Phone: [facility] Work Phone: Start: 02-07-2025 End: 02-07-2025 Bamboo flowsheet Kali Conklin DPM Work Phone: [facility] Start: 02-07-2025 End: 02-07-2025 Bamboo flowsheet Kali oCnklin DPM Work Phone: [facility] Start: [...] 01-29-2025 Office outpatient visit 25 minutes Sascha Kwanng DO Work Phone: [facility] Comment on above: Right leg weakness ( Primary Dx); Fall, initial encounter; Lumbosacral stenosis with neurogenic claudication; Perforation of right tympanic membrane Start: 01-29-2025 End: 01-29-2025 ambulatory [facility] Start: 01-25-2025 End: 01-25-2025 ambulatory Sascha Cynthialong DO Work Phone: [facility] Work Phone: Start: 01-25-2025 End: 01-25-2025 Patient encounter procedure Sascha Furlong DO Work Phone: [facility] Work Phone: Start: 01-25-2025 End: 01-25-2025 Office outpatient visit 15 minutes Sascha G Cynthialong DO Work Phone: [facility] Comment on above: Abrasion of anterior right lower leg, subsequent encounter (Primary Dx); Cellulitis of right lower extremity; Contusion of right lower leg, subsequent encounter Start: 01-25-2025 End: 01-25-2025 ambulatory [facility] Start: 01-24-2025 End: 01-24-2025 Bamboo flowsheet Kali Conklin DPM Work Phone: [facility] Start: 01-24-2025 End: 01-24-2025 Bamboo flowsheet Kali Dillan Katerin DPM Work Phone: [facility] Start: 01-24-2025 End: 01-24-2025 Office outpatient visit 15 minutes Kali Conklin DPM Work Phone: [facility] Comment on above: 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); Pronation deformity of both feet; Skin fissure Start: 01-24-2025 End: 01-24-2025 ambulatory KALI CONKLIN Not Available Start: 01-24-2025 End: 01-24-2025 ambulatory Sascha Furlong DO Work Phone: [facility] Work Phone: Start: 01-24-2025 End: 01-24-2025 Discharged Recurring Sascha Furlong DO Work Phone: [facility]-Physical Therapy [place] Start: 01-24-2025 Registered Recurring Sascha Fu rlong DO Work Phone: [facility]-Physical Therapy [place] Start: 01-14-2025 End: 01-14-2025 Patient encounter procedure Sascha Furlong DO Work Phone: [facility]-Lab [address] Work Phone: Start: 01-14-2025 End: 01-14-2025 ambulatory Sascha Furlong DO Work Phone: [facility] Work Phone: Start: 01-12-2025 End: 01-12-2025 Emergency department patient visit Sascha Furlong DO Work Phone: [facility]-Emergency Room Work Phone: Start: 01-12-2025 End: 01-12-2025 ambulatory Sascha Furlong DO Work Phone: [facility] Work Phone: Start: 01-12-2025 End: 01-12-2025 Patient encounter procedure Sascha Sutton DO Work Phone: [facility] [place] Work Phone: Start: 01-11-2025 Registered Recurring Sascha mcarthur DO Work Phone: [facility]-Physical Therapy [place] Start: 01-10-2025 End: 01-10-2025 Bamboo flowsheet Kali Conklin DPM Work Phone: [facility] Start: 01-10-2025 End: 01-10-2025 Bamboo flowsheet Kali Conklin DPM Work Phone: [facility] Start: 01-10-2025 End: 01-10-2025 ambulatory KALI CONKLIN Not Available Start: 01-10-2025 End: 01-10-2025 Office outpatient visit 15 minutes Kali Conklin DPM Work Phone: [facility] Comment on above: Skin fissure (Primar y Dx); Pain due to onychomycosis of toenails of both feet; 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; Exostosis of both feet Start: 01-03-2025 End: 01-03-2025 Telephone encounter Renée EARL TRigo Other Phone: [facility] Start: 12-19-2024 End: 12-19-2024 Bamboo flowsheet Whit Taylor MD Work Phone: [facility] Start: 12-19-2024 End: 12-19-2024 Bamboo flowsheet Whit Taylor MD Work Phone: [facility] Start: 12-19-2024 End: 12-19-2024 Office [...] flowsheet Carlos Eden DO Work Phone: [facility] Start: 12-17-2024 End: 12-17-2024 Office outpatient visit 25 minutes Carlos Eden DO Work Phone: [facility] Comment on above: Thyroid nodule (CMS/ HCC) (Primary Dx) Essential hypertensi on (Primary Dx); Hyperlipidemia, unspecified hyperlipidemia type; Intention tremor; 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CMS-HCC); Antiphospholipid syndrome (CMS-HCC); Class 1 obesity due to excess calories with serious comorbidity and body mass index (BMI) of 33.0 to 33.9 in adult Start: 12-17-2024 End: 12-17-2024 ambulatory [facility] Start: 12-07-2024 Registered Recurring Edenilson saenz MD Work Phone: [facility]-Physical Therapy [place] Start: 12-07-2024 End: 12-07-2024 Patient encounter procedure Edenilson Mcleod MD Work Phone: [facility]-Lab [facility] [place] Work Phone: Start: 12-07-2024 End: 12-07-2024 ambulatory Edenilson Mcleod MD Work Phone: [facility] Work Phone: Start: 12-06-2024 End: 12-06-2024 Bamboo flowsheet Kali Conklin DPM Work Phone: [facility] Start: 12-06-2024 End: 12-06-2024 Bamboo flowsheet Kali Conklin DPM Work Phone: [facility] Start: 12-06-2024 End: 12-06-2024 Office outpatient visit 15 minutes Kali Conklin DPM Work Phone: [facility] Comment on above: 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); Exostosis of both feet; Pain due to onychomycosis of toenails of both feet Start: 12-06-2024 End: 12-06-2024 ambulatory KALI CONKLIN Not Available Start: 11-26-2024 Registered Recurring Edenilson saenz MD Work Phone: [facility]-Physical Therapy [place] Start: 11-26-2024 End: 11-26-2024 Orders Only Sascha Sutton DO Work Phone: [facility] Comment on above: Essential hypertensi on (Primary Dx); Hyperlipidemia, unspecified hyperlipidemia type; Encounter for screening for malignant neoplasm of prostate Start: 11-26-2024 End: 11-26-2024 Patient encounter procedure Edenilson Mcleod MD Work Phone: [facility] Work Phone: Start: 11-09-2024 End: 11-09-2024 Patient encounter procedure Edenilson Mcleod MD Work Phone: [facility] Work Phone: Start: 11-05-2024 End: 11-05-2024 Patient encounter procedure Edenilson Mcleod MD Work Phone: [facility]-MRI [address] Closed Work Phone: Start: 11-05-2024 End: 11-05-2024 ambulatory Sascha Sutton Facility:[facility] Start: 11-01-2024 End: 11-01-2024 Bamboo flowsheet Kali Conklin DPM Work Phone: [facility] Start: 11-01-2024 End: 11-01-2024 Bamboo flowsheet Kali A Katerin DPM Work Phone: [facility] Start: 11-01-2024 End: 11-01-2024 Patient encounter procedure Kali A Katerin DPM Work Phone: [facility] Comment on above: Pain due to onychomy cosis of toenails of both feet (Primary Dx); Exostosis of both feet Start: 11-01-2024 End: 11-01-2024 ambulatory KALI CONKLIN Not Available Start: 10-25-2024 End: 10-25-2024 ambulatory Zac MUNIZ Facility:[id number] Start: 10-17-2024 End: 10-17-2024 Patient encounter procedure Edenilson Mcleod MD Work Phone: [facility] Work Phone: Start: 10-15-2024 End: 10-15-2024 [...] encounter procedure Edenilson Mcleod MD Work Phone: [facility] [address] Work Phone: Start: 10-10-2024 End: 10-10-2024 ambulatory Edenilson Mcleod MD Work Phone: [facility] Work Phone: Start: 10-09-2024 End: 10-09-2024 Office outpatient visit 15 minutes Sascha Sutton DO Work Phone: [facility] - Family [facility] Comment on above: Subacute frontal sin usitis (Primary Dx); Hoarseness Start: 10-09-2024 End: 10-09-2024 ambulatory [facility] Start: 10-02-2024 End: 10-02-2024 Orders Only Sascha Sutton DO Work Phone: [facility] Start: 09-24-2024 End: 09-24-2024 Office outpatient visit 15 minutes Sascha Sutton DO Work Phone: [facility] Comment on above: Upper respiratory tr act infection, unspecified type (Primary Dx) Start: 09-24-2024 End: 09-24-2024 ambulatory [facility] Start: 09-19-2024 End: 09-19-2024 ambulatory MD Edenilson Mcleod Work Phone: [facility] Work Phone: Start: 09-19-2024 End: 09-19-2024 Patient encounter procedure MD Edenilson Mcleod Work Phone: [facility] [place] Work Phone: Start: 09-06-2024 Non-patient / Non-visit MD Araya Work Phone: [facility] Work Phone: Start: 09-05-2024 Non-patient / Non-visit MD Araya Work Phone[facility] Start: 09-05-2024 End: 09-05-2024 ambulatory MD Edenilson Mcleod Work Phone: [facility] Work Phone: Start: 09-05-2024 End: 09-05-2024 Patient encounter procedure MD Edenilson Mcleod Work Phone: [facility] Work Phone: Start: 09-03-2024 End: 09-03-2024 ambulatory Zac MUNIZ Facility:[facility] Start: 09-03-2024 End: 09-03-2024 Patient encounter procedure Zac MUNIZ [facility] Start: 08-29-2024 End: 08-29-2024 Refill Sascha Sutton DO Work Phone: [facility] Start: 08-29-2024 End: 08-29-2024 ambulatory MD Edenilson Mcleod Work Phone: [facility] Work Phone: Start: 08-29-2024 End: 08-29-2024 Patient encounter procedure MD Edenilson Mcleod Work Phone: [facility] Work Phone: Start: 08-20-2024 End: 08-20-2024 ambulatory MD Edenilson Mcleod Work Phone: [facility] Work Phone: Start: 08-20-2024 End: 08-20-2024 Patient encounter procedure MD Edenilson Mcleod Work Phone: [facility] Work Phone: Start: 08-17-2024 [...] 08-13-2024 ambulatory MD Edenilson Mcleod Work Phone: [facility] Work Phone: Start: 08-13-2024 End: 08-13-2024 Patient encounter procedure MD Edenilson Mcleod Work Phone: [facility] Work Phone: Start: 08-13-2024 Non-patient / Non-visit MD Araya Work Phone: [facility] Work Phone: Start: 07-25-2024 End: 07-25-2024 ambulatory MD Edenilson Mcleod Work Phone: [facility] Work Phone: Start: 07-25-2024 End: 07-25-2024 Patient encounter procedure MD Edenilson Mcleod Work Phone: [facility] Work Phone: Start: 07-18-2024 Non-patient / Non-visit MD Araya Work Phone: [facility] Work Phone: Start: 07-18-2024 End: 07-18-2024 Patient encounter procedure MD Edenilson Mcleod Work Phone: [facility] Work Phone: Start: 07-12-2024 End: 07-12-2024 ambulatory MD Edenilson Mcleod Work Phone: [facility] Work Phone: Start: 07-12-2024 End: 07-12-2024 Patient encounter procedure MD Edenilson Mcleod Work Phone: [facility] Work Phone: Start: 07-04-2024 Non-patient / Non-visit MD Araya Work Phone: [facility] Work Phone: Start: 07-04-2024 End: 07-04-2024 ambulatory DO Sascha Furlong Work Phone: [facility] Work Phone: Start: 07-04-2024 End: 07-04-2024 Patient encounter procedure DO Sashca Furlong Work Phone: [facility] Work Phone: Start: 07-03-2024 End: 07-03-2024 Patient encounter procedure DO Sascha Furlong Work Phone: [facility] [address] Work Phone: Start: 07-03-2024 End: 07-03-2024 ambulatory DO Sascha Furlong Work Phone: [facility] Work Phone: Start: 06-26-2024 End: 06-26-2024 ambulatory DO Sascha Furlong Work Phone: [facility] Work Phone: Start: 06-26-2024 End: 06-26-2024 Patient encounter procedure DO Sascha Furlong Work Phone: [facility] Work Phone: Start: 06-15-2024 End: 06-21-2024 Telephone encounter Sascha G Furlong DO Work Phone: [facility] Start: 06-14-2024 End: 06-14-2024 Office outpatient visit 15 minutes Sascha Sutton DO Work Phone: [facility] - Family Medicine Comment on above: Essential hypertensi on (Primary Dx); Class 1 obesity due to excess calories with serious comorbidity and body mass index (BMI) of 33.0 to 33.9 in adult Start: 06-14-2024 End: 06-14-2024 ambulatory SASCHA SUTTON [facility] Start: 06-06-2024 End: 06-06-2024 ambulatory DO Saschaabelardo Marielong Work Phone: [facility] Work Phone: Start: 06-06-2024 End: 06-06-2024 Patient encounter procedure DO Sascha Marielong Work Phone: [facility] Work Phone: Start: 06-06-2024 Non-patient / Non-visit DO Greg Marielong Work Phone: [facility] Work Phone: Start: 06-02-2024 End: 06-02-2024 Refill Sascha Sutton DO [facility] Start: 05-30-2024 End: 05-30-2024 ambulatory DO Saschaabelardo Marielong Work Phone: [facility] Work Phone: Start: 05-30-2024 End: 05-30-2024 Departed Referred DO Saschaabelardo Marielong Work Phone: [facility]-Lab [facility] [place] Work Phone: Start: 05-28-2024 End: 05-28-2024 ambulatory DO Saschaabelardo Marielong Work Phone: [facility] Work Phone: Start: 05-28-2024 End: 05-28-2024 Patient encounter procedure DO Sascha Furlong Work Phone: [facility] Work Phone: Start: 05-16-2024 End: 05-16-2024 ambulatory DO Sascha Furlong Work Phone: [facility] Work Phone: Start: 05-16-2024 End: 05-16-2024 Patient encounter procedure DO Sascha Furlong Work Phone: [facility] Work Phone: Start: 05-16-2024 Non-patient / Non-visit DO Den abelardo Furlong Work Phone: [facility] Work Phone: Start: 05-15-2024 End: 05-15-2024 Patient encounter procedure LEAH KHAN [facility] Start: 05-02-2024 End: 05-02-2024 ambulatory DO Sascha Furlong Work Phone: [facility] Work Phone: Start: 05-02-2024 End: 05-02-2024 Patient encounter procedure DO Sascha Furlong Work Phone: [facility] Work Phone: Start: 05-01-2024 End: 05-01-2024 Patient encounter procedure Sascha Candelaria Furlong DO Work Phone: [facility] Comment on above: Medicare annual well ness visit, subsequent (Primary Dx); Screening for depression Start: 04-24-2024 End: 04-24-2024 ambulatory DO Sascha Furlong Work Phone: [facility] Work Phone: Start: 04-24-2024 End: 04-24-2024 Patient encounter procedure DO Sascha Furlong Work Phone: [facility] Neuro[facility] Work Phone: Start: 04-18-2024 Non-patient / Non-visit DO Den nis Furlong Work Phone: [facility] Work Phone: Start: 04-18-2024 End: 04-18-2024 ambulatory DO Sascha Furlong Work Phone: [facility] Work Phone: Start: 04-18-2024 End: 04-18-2024 Patient encounter procedure DO Sascha Furlong Work Phone: [facility] Work Phone: Start: 04-11-2024 End: 04-11-2024 ambulatory DO Sascha Furlong Work Phone: [facility] Work Phone: Start: 04-11-2024 End: 04-11-2024 Patient encounter procedure DO Sascha Furlong Work Phone: [facility] Work Phone: Start: 04-09-2024 Non-patient / Non-visit DO Den nis Furlong Work Phone: [facility] Neurosurgery Work Phone: Start: 04-09-2024 End: 04-09-2024 Admission to same day surgery center DO Sascha Furlong Work Phone: [facility]-Surgery Center [facility] [place] Start: 04-09-2024 End: 04-09-2024 ambulatory DO Sascha Furlong Work Phone: [facility] Work Phone: Start: 04-02-2024 End: 04-02-2024 ambulatory DO Sascha Furlong Work Phone: [facility] Work Phone: Start: 04-02-2024 End: 04-02-2024 Departed Referred DO Sascha Furlong Work Phone: [facility]-Pre-Surgical Testing Work Phone: Start: 04-02-2024 End: 04-02-2024 Patient encounter procedure DO Sascha Furlong Work Phone: [facility]-Pre-Surgical Testing Work Phone: Start: 03-29-2024 End: 03-29-2024 ambulatory DO Sascha Furlong Work Phone: [facility] Work Phone: Start: 03-29-2024 End: 03-29-2024 Patient encounter procedure DO Sascha Furlong Work Phone: [facility] Work Phone: Start: 03-20-2024 End: 03-20-2024 Patient encounter procedure Daria X Orzech [facility] Start: 03-13-2024 End: 03-13-2024 ambulatory DO Sascha Furlong Work Phone: [facility] Work Phone: Start: 03-13-2024 End: 03-13-2024 Patient encounter procedure DO Sascha Furlong Work Phone: [facility] [address] Work Phone: Start: 03-08-2024 End: 03-08-2024 ambulatory DO Sascha Furlong Work Phone: [facility] Work Phone: Start: 03-08-2024 End: 03-08-2024 Patient encounter procedure DO Sascha Furlong Work Phone: [facility]-MRI [address] Work Phone: Start: 03-03-2024 End: 03-03-2024 Refill Sascha G Furlong DO Work Phone: [facility] - Family Medicine Start: 02-21-2024 End: 02-21-2024 ambulatory DO Sascha Furlong Work Phone: [facility] Work Phone: Start: 02-21-2024 End: 02-21-2024 Patient encounter procedure DO Sascha Furlong Work Phone: [facility] Work Phone: Start: 02-09-2024 End: 02-09-2024 ambulatory DO Sascha Furlong Work Phone: [facility] Work Phone: Start: 02-09-2024 End: 02-09-2024 Patient encounter procedure DO Sascha Furlong Work Phone: [facility] Work Phone: Start: 01-23-2024 End: 02-20-2024 ambulatory SASCHA G JALEESANG [facility] Start: 01-18-2024 End: 01-18-2024 Lab Drop off Zac MUNIZ [facility] Start: 01-18-2024 End: 01-18-2024 Patient encounter procedure Zac MUNIZ [facility] [place] Start: 01-11-2024 End: 01-11-2024 ambulatory DO Sascha Furlong Work Phone: [facility] Work Phone: Start: 01-11-2024 End: 01-11-2024 Patient encounter procedure DO Sascha Furlong Work Phone: [facility]-XRay [facility] [place] Work Phone: Start: 01-10-2024 End: 01-10-2024 ambulatory DO Sascha Furlong Work Phone: [facility] Work Phone: Start: 01-10-2024 End: 01-10-2024 Patient encounter procedure DO Sascha Furlong Work Phone: [facility]-MRI [facility] [place] Work Phone: Start: 01-02-2024 End: 01-03-2024 Emergency department patient visit DO Sascha Furlong Work Phone: [facility]-Emergency Room Work Phone: Start: 12-30-2023 Office outpatient ne w 45 minutes Мария Hernandez [facility] Neurosurgery Start: 12-30-2023 End: 12-30-2023 ambulatory DO Sascha Furlong Work Phone: [facility] Work Phone: Start: 12-30-2023 End: 12-30-2023 Patient encounter procedure DO Sascha Furlong Work Phone: [facility]-XRay [facility] Work Phone: Start: 12-28-2023 Chart abstracting Bharath pandya DPM Work Phone: [facility] Start: 12-28-2023 End: 12-28-2023 Office outpatient visit 15 minutes Bharath Cain DPM Work Phone: [facility] Comment on above: Pronation deformity of both feet (Primary Dx); Chronic pain of both knees Start: 12-22-2023 End: 01-20-2024 ambulatory SASCHA G FURLONG [facility] Start: 12-19-2023 End: 12-22-2023 ambulatory SASCHA MARIEOSMANI [facility] Start: 12-15-2023 End: 12-15-2023 ambulatory DO Sascha Furlong Work Phone: [facility] Work Phone: Start: 12-15-2023 End: 12-15-2023 Patient encounter procedure DO Saschaabelardo Marielong Work Phone: [facility]-XRay [facility] [place] Work Phone: Start: 12-14-2023 End: 12-15-2023 [facility] Start: 12-14-2023 End: 12-14-2023 Office outpatient visit 25 minutes Sascha Sutton DO Work Phone: [facility] Internal Medicine - Family Medicine Comment on above: Essential hypertensi on (Primary Dx); Hyperlipidemia, unspecified hyperlipidemia type; Midline low back pain without sciatica, unspecified chronicity; Class 1 obesity due to excess calories with serious comorbidity and body mass index (BMI) of 33.0 to 33.9 in adult; 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[facility]-HCC); Antiphospholipid syndrome ([facility]-HCC); Cubital tunnel syndrome on right; Paresthesias Start: 12-08-2023 End: 12-08-2023 ambulatory DO Saschaabelardo Marielong Work Phone: [facility] Work Phone: Start: 12-08-2023 End: 12-08-2023 Patient encounter procedure DO Sascha Furlong Work Phone: [facility] [address] Work Phone: Start: 10-20-2023 End: 10-20-2023 ambulatory DO Sascha Furlong Work Phone: [facility] Work Phone: Start: 10-20-2023 End: 10-20-2023 Patient encounter procedure DO Sascha Furlong Work Phone: [facility] [place] Work Phone: Start: 09-19-2023 End: 09-19-2023 Patient encounter procedure Zac MUNIZ [facility] Start: 09-12-2023 End: 09-12-2023 ambulatory DO Sascha Furlong Work Phone: [facility] Work Phone: Start: 09-12-2023 End: 09-12-2023 Patient encounter procedure DO Sascha Furlong Work Phone: [facility]-XRay [facility] [place] Work Phone: Start: 09-05-2023 End: 09-05-2023 ambulatory [...] Phone: [facility] [place] Work Phone: Start: 08-08-2023 End: 08-08-2023 Patient encounter procedure Zac MUNIZ [facility] Start: 08-04-2023 End: 08-04-2023 ambulatory DO Sascha Furlong Work Phone: [facility] Work Phone: Start: 08-04-2023 End: 08-04-2023 Patient encounter procedure DO Sascha Furlong Work Phone: [facility]-XRay [facility] [place] Work Phone: Start: 06-03-2023 End: 06-03-2023 Patient encounter procedure Zac Alvino MUNIZ [facility] of [facility] Start: 05-31-2023 End: 05-31-2023 ambulatory DO Sascha Furlong Work Phone: [facility] Work Phone: Start: 05-31-2023 End: 05-31-2023 Patient encounter procedure DO Sascha Furlong Work Phone: [facility]-Lab [facility] [place] Work Phone: Start: 05-18-2023 End: 05-18-2023 ambulatory DO Sascha Furlong Work Phone: [facility] Work Phone: Start: 05-18-2023 End: 05-18-2023 Patient encounter procedure DO Sascha Furlong Work Phone: [facility] [place] Work Phone: Start: 05-09-2023 Office outpatient vi sit 15 minutes Sascha G Furlong Work Phone: [facility] 250 DO Work Phone: Start: 05-09-2023 End: 05-09-2023 ambulatory DO Sascha Furlong Work Phone: [facility] Work Phone: Start: 05-09-2023 End: 05-09-2023 Patient encounter procedure DO Sascha Furlong Work Phone: [facility]-XRay [facility] [place] Work Phone: Start: 05-07-2023 End: 05-07-2023 Emergency department patient visit DO Asscha Furlong Work Phone: [facility]-Emergency Room Work Phone: Start: 05-03-2023 End: 05-03-2023 Emergency department patient visit DO Sascha Furlong Work Phone: [facility]-Emergency Room Work Phone: Start: 04-13-2023 End: 04-13-2023 Patient encounter procedure DO Sascha Furlong Work Phone: [facility]-Respiratory Therapy Work Phone: Start: 04-08-2023 End: 04-08-2023 Patient encounter procedure DO Sascha Furlong Work Phone: [facility] [place] Work Phone: Start: 04-04-[address] Alfonso greenberg [place] Facility:[id number] Start: 04-04-2023 End: 04-04-2023 Admission to same day surgery center DO Sascha Furlong Work Phone: [facility]-Auto [employer] Counselor Work Phone: Start: 04-04-2023 End: 04-04-2023 ambulatory DO Sascha Furlong Work Phone: [facility] Work Phone: Start: 03-31-2023 End: 03-31-2023 ambulatory DO Sascha Furlong Work Phone: [facility] Work Phone: Start: 03-31-2023 End: 03-31-2023 Patient encounter procedure DO Sascha Furlong Work Phone: [facility]-Tte-Iqntsw[employer] Testing Work Phone: Start: 03-30-2023 Office consultation new/estab patient 80 min Sascha G Furlong Work Phone: -[facility] 250 DO Work Phone: Start: 03-30-[address] Alfonso Trujillo Facility: Start: 03-29-[address] [facility] Start: 03-20-2023 End: 03-22-2023 ambulatory SHAIKH Claritza [...] Phone: [facility]-XRay [facility] [place] Start: 07-21-2022 End: 07-21-2022 Patient encounter procedure DO Sascha Furlong Work Phone: [facility]-Lab [address] Start: 04-14-2022 End: 04-14-2022 Patient encounter procedure DO Sascha Kwanng Work Phone: [facility]-Lab [address] Start: 04-09-2022 End: 04-09-[address] AUDIE GONZALES . Facility: Start: 04-25-2018 End: 04-25-2018 Emergency department patient visit REBEKAH REED [facility] Imaging result normal Sascha motang Work Phone: [facility] 250 DO Work Phone: Procedures Date Procedure Procedure Detail Performing Clinician Start: 06-20-2025 Ecg routine ecg w/least 12 lds w/i&r Alfonso Trujillo DO Work Phone: Start: 06-12-2025 Cystoscopy Zac MUNIZ Start: 06-11-2025 Adult depression screening assessment Myra Orlando RETAIL CUSTODIAL ASSOCIATE-QUARTZ [employer]TER Work Phone: Start: 05-28-2025 Adult depression screening assessment Sascha Kwanng DO Work Phone: Start: 05-07-2025 Adult depression screening assessment Sascha Furlong DO Work Phone: Start: 04-16-2025 Adult depression screening assessment Sascha Marielong DO Work Phone: Start: 04-10-2025 X-ray of right knee, four views Sascha motang DO Work Phone: Start: 03-13-2025 Back structure, excluding neck (body structure) Zac MUNIZ Comment on above: left lumbar and right lumbar radio frequ ency L3, L4 Start: 02-25-2025 Adult depression screening assessment Sascha Cynthialong DO Work Phone: Start: 02-15-2025 Plain chest X-ray Sascha Furlong DO Work Phone: Start: 01-25-2025 X-ray of right ankle Sascha Furlong DO Work Phone: Start: 01-25-2025 Follow-up visit Follow-up SASCHA MARIELONG Start: 01-25-2025 Adult depression screening assessment Sascha Furlong DO Work Phone: Start: 01-12-2025 CT of head without contrast Sascha Furlo ng DO Work Phone: Start: 01-12-2025 CT of lumbar spine without contrast Sascha Furlong DO Work Phone: Start: 01-12-2025 X-ray of right knee, two views Sascha Beebe rlong DO Work Phone: Start: 12-17-2024 Adult depression screening assessment Sascha Furlong DO Work Phone: Start: 11-05-2024 MRI of right hip Edenilson Mcleod MD Work Phone: Start: 09-24-2024 Adult depression screening assessment Sascha Cynthialong DO Work Phone: Start: 09-19-2024 Plain chest X-ray MD Edenilson Mcleod Work Phone: Start: 08-29-2024 Plain X-ray of right hip MD Edenilson de oliveira Work Phone: Start: 06-14-2024 Adult depression screening assessment Sascha Cynthialong DO Work Phone: Start: 05-01-2024 Adult depression [...] 12-30-2023 X-ray of cervical spine DO Saschaabelardo Kwann g Work Phone: Start: 12-30-2023 X-ray of [...] [facility] Angio DO Sascha Furlong Work Phone: Start: 09-29-2022 X-ray of left foot DO Sascha Furlong Work Phone: Start: 06-15-2017 Colonoscopy Sascha Furlong DO Work Phone: Start: 11-21-2016 Total colonoscopy Sascha G Cynthialong Work Phone: Arthroplasty of knee Sascha G Cynthialong Work Phone: Arthroplasty of knee Zac MUNIZ Arthroscopy of knee Zac MUNIZ Cleft palate (disorder) Patr ick MUNIZ Colonoscopy Zacgreyson MUNIZ Decompression of median nerve Sascha G Cynthialong Work Phone: Decompression of median nerve Zac MUNIZ Dilation of esophagus Sascha Sutton Work Phone: Esophagogastroduodenoscopy Simba MUNIZ Hernia repair Sascha keen Work Phone: Malignant neoplasm o f skin (disorder) Zac MUNIZ Operation on the ear Sascha Sutton Work Phone: Operative procedure on knee Sascha Sutton Work Phone: Operative procedure on spinal structure Sascha Sutton Work Phone: Procedure on shoulder Ronni MUNIZ Procedure on spine Zac Navarro LORENZO Radio-frequency abla tion system (physical object) Zac [...] Td Vaccines (3 - Td or Tdap) [facility] Start: 05-20-2033 DTaP/Tdap/Td Vaccine s (3 - Td or Tdap) DTaP/Tdap/Td Vaccines (3 - Td or Tdap) [facility] Start: 06-15-2027 Screening for malign ant neoplasm of colon [facility] Start: 06-11-2026 Depression Screening Depression Scre ening [facility] [employer] [facility] Start: 06-11-2026 Fall Risk Screening Fall Risk Screen ing [facility] [employer] [facility] Start: 06-11-2026 Tobacco Screening Tobacco Screening [facility] Start: 05-28-2026 Adult BMI Follow Up Plan Adult BMI F ollow Up Plan [facility] Start: 05-28-2026 Adult BMI Screening Adult BMI Screen ing [facility] [facility] Start: 05-28-2026 Depression Screening Depression Scre ening [facility] Start: 05-28-2026 Fall Risk Screening Fall Risk Screen ing [facility] [facility] Start: 05-28-2026 Tobacco Screening Tobacco Screening [facility] [employer] Start: 05-13-2026 End: 05-13-2026 Patient encounter procedure 05/13/2026 10:20 AM EDT Office Visit [facility] - Family Medicine [address] [place] [phone] [facility] Start: 05-07-2026 Adult BMI Screening Adult BMI Screen ing [facility] Start: 05-07-2026 Depression Screening Depression Scre ening [facility] [employer] Start: 05-07-2026 Fall Risk Screening Fall Risk Screen ing [facility] Start: 05-07-2026 Medicare Annual Well ness Visit Medicare Annual Wellness Visit [facility] Start: 04-16-2026 Adult BMI Screening Adult BMI Screen ing [facility] Start: 04-16-2026 Depression Screening Depression Scre ening [facility] Start: 04-16-2026 Fall Risk Screening Fall Risk Screen ing [facility] Start: 04-16-2026 Tobacco Screening Tobacco Screening [facility] [employer] Start: 02-25-2026 Adult BMI Screening Adult BMI Screen ing [facility] [employer] Start: 02-25-2026 Depression Screening Depression Scre ening [facility] Start: 02-25-2026 Fall Risk Screening Fall Risk Screen ing [facility] [facility] Start: 01-29-2026 Adult BMI Screening Adult BMI Screen ing [facility] [employer] Start: 01-29-2026 Tobacco Screening Tobacco Screening [facility] [employer] Start: 01-25-2026 Adult BMI Screening Adult BMI Screen ing [facility] Start: 01-25-2026 Depression Screening Depression Scre ening [facility] Start: 01-25-2026 Fall Risk Screening Fall Risk Screen ing [facility] Start: 01-25-2026 Tobacco Screening Tobacco Screening [facility] Start: 12-18-2025 End: 12-18-2025 Patient encounter procedure [facility] Start: 10-09-2025 Adult BMI Screening Adult BMI Screen ing [facility] Start: 10-09-2025 Tobacco Screening Tobacco Screening [facility] Start: 09-24-2025 Adult BMI Screening Adult BMI Screen ing [facility] Start: 09-24-2025 Depression Screening Depression Scre ening [facility] Start: 09-24-2025 Tobacco Screening Tobacco Screening [facility] Start: 09-16-2025 End: 09-16-2025 Patient encounter procedure [facility] Start: 07-22-2025 Influenza vaccination [facility] Start: 07-17-2025 End: 07-17-2025 Patient encounter procedure 07/17/2025 2:00 PM EDT Office Visit [facility] [address] [facility] [address] [place] [address] Shabnam Connell, FISHERIES DIRECTOR [address], [address] [place] [address] [facility] Start: 06-27-2025 End: 06-27-2025 Patient encounter procedure 06/27/2025 11:50 AM EDT Procedure Visit [facility] [address] [facility] [address] [place] [address] Kali Conklin, JODI [address] [facility] [address] [place] [address] Pain due to onychomycosis of toenails of both feet (Primary Dx); Xerosis cutis; Su splint, right, initial encounter; Tenosynovitis of right lower leg; 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 [facility] Comment on above: Pain due to onychomy cosis of toenails of both feet (Primary Dx); Xerosis cutis; Su splint, right, initial encounter; Tenosynovitis of right lower leg; 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 Start: 06-25-2025 Doppler ultrasonogra phy of bilateral carotid arteries US carotid doppler BI [facility] Start: 06-25-2025 US.doppler Carotid arteries - bilateral [facility] Start: 06-20-2025 End: 06-20-2027 Holter monitor study Holter Or Event Bit [facility] Card[facility] Services Routine Syncope, unspecified syncope type PVC (premature ventricular contraction) Expected: 06/20/2025 (Approximate), Expires: 06/20/2027 [facility] Service Area Work Phone: Comment on above: Expected: 06/20/2025 (Approximate), Expires: 06/20/2027 Start: 06-20-2025 End: 06-20-2027 Tilt table study Tilt Table Cardiac Services Routine Syncope, unspecified syncope type PVC (premature ventricular contraction) Expected: 06/20/2025 (Approximate), Expires: 06/20/2027 [facility] Work Phone: Comment on above: Expected: 06/20/2025 (Approximate), Expires: 06/20/2027 Start: 06-20-2025 End: 06-20-2027 US.doppler Carotid arteries - bilateral Vascular US Carotid Artery Duplex Bilateral Vascular Ultrasound Routine Syncope, unspecified syncope type Expected: 06/20/2025 (Approximate), Expires: 06/20/2027 [facility] Work Phone: Comment on above: Expected: 06/20/2025 (Approximate), Expires: 06/20/2027 Start: 06-20-2025 End: 06-20-2025 Patient encounter procedure 06/20/2025 10:00 AM EDT Procedure Visit [facility] [address] [place] [address] Kali Conklin DPM [address] [facility] 5 [place] [address] [facility] Start: 06-14-2025 Adult BMI Screening Adult BMI Screen ing [facility] Start: 06-14-2025 Depression Screening Depression Scre ening [facility] Start: 06-14-2025 Tobacco Screening Tobacco Screening [facility] Start: 05-28-2025 End: 05-28-2025 Patient encounter procedure 05/28/2025 2:45 PM EDT Office Visit [facility] Internal Medicine - Family Medicine [address] [place] [address] Sascha Sutton, DO [address], [facility] [place] [address] [facility] - Family Medicine Start: 05-15-2025 End: 05-15-2025 Patient encounter procedure [facility] Comment on above: Arrived Start: 05-07-2025 End: 05-07-2025 Patient encounter procedure 05/07/2025 9:40 AM EDT Office Visit [facility] Internal Medicine - Family Medicine [address] [place] [address] [facility] Internal [facility] - Family [facility] Start: 05-01-2025 Adult BMI Screening Adult BMI Screen ing [facility] Start: 05-01-2025 Depression Screening Depression Scre ening [facility] Start: 05-01-2025 Fall Risk Screening Fall Risk Screen ing [facility] Start: 05-01-2025 Medicare Annual Well ness Visit Medicare Annual Wellness Visit [facility] Start: 04-18-2025 Hemolytic complement CH50 level [facility] Start: 04-09-2025 End: 04-09-2025 Patient encounter procedure [...] Visit [facility] [address] [facility] [address] [place] [address] Kali Conklin DPM [address] [facility] 5 [place] [address] [facility] Start: 03-20-2025 End: 03-20-2025 Patient encounter procedure 03/20/2025 10:20 AM EDT Office Visit [facility] [address] [facility] [address] [place] [address] Whit Taylor MD [address] [id number] [facility] Start: 02-25-2025 End: 02-25-2025 Patient encounter procedure 02/25/2025 1:30 PM EDT Office Visit [facility] [address] [place] [address] Sascha Sutton, [address] [facility] [place] [address] [facility] Start: 02-21-2025 End: 02-21-2025 Patient encounter procedure 02/21/2025 9:30 AM EDT Office Visit [facility] [address] 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; Contracture of right ankle; Xerosis cutis Start: 02-16-2025 [facility] Start: 02-16-2025 Referral to stripper latex [facility] Start: 02-15-2025 Hospital admission [facility] Start: 02-07-2025 End: 02-07-2025 Patient encounter procedure 02/07/2025 10:00 AM EDT Office Visit [facility] [address] [facility] [address] [place] [address] Kali Conklin DPM [address] [address] Xerosis cutis (Primary Dx); Tenosynovitis of right lower leg; Su splint, right, initial encounter; Contracture of right ankle [facility] Comment on above: Xerosis cutis (Prima ry Dx); Tenosynovitis of right lower leg; Su splint, right, initial encounter; Contracture of right ankle Start: 01-30-2025 End: 01-30-2025 Patient encounter procedure 01/30/2025 4:40 PM EDT Office Visit [facility] [address] [place] [address] Kali Conklin DPM [address] [address] Acquired inequality of length of right lower [...] Visit [facility] [address] [facility] [address] [place] [address] Kali Conklin DPM [address] [address] Arrived [facility] Comment on above: Arrived Start: 01-14-2025 Hemolytic complement CH50 level [facility] Start: 01-10-2025 End: 01-10-2025 Patient encounter procedure 01/10/2025 1:10 PM EST Procedure Visit [facility] [address] [facility] [address] [place] [address] Kali Conklin DPM [address] [address] [facility] Start: 12-19-2024 End: 12-19-2024 Patient encounter procedure [facility] Comment on above: Arrived Start: 12-17-2024 End: 12-17-2024 Patient encounter procedure [facility] Comment on above: Arrived Start: 12-14-2024 Adult BMI Screening Adult BMI Screen ing [facility] Start: 12-14-2024 Depression Screening Depression Scre ening [facility] Start: 12-14-2024 Fall Risk Screening Fall Risk Screen ing [facility] Start: 12-14-2024 End: 11-26-2025 Lipid panel Lipid panel Lab Routine Hyperlipidemia, unspecified hyperlipidemia type Expected: 12/14/2024, Expires: 11/26/2025 [facility] Comment on above: Expected: 12/14/2024 , Expires: 11/26/2025 Start: 12-14-2024 Tobacco Screening Tobacco Screening [facility] Start: 12-12-2024 End: 12-12-2024 Patient encounter procedure 12/12/2024 2:15 PM EST Office Visit [facility] [address] [place] [address] Carlos Eden DO [address] [place] [address] [facility] Start: 12-06-2024 End: 12-06-2024 Patient encounter procedure 12/06/2024 10:20 AM EST Office Visit [facility] [address] [facility] [address] [place] [address] Kali Conklin DPM [address] [address] Exostosis of both feet (Primary Dx) [facility] [...] Arrived Start: 10-10-2024 Hemolytic complement CH50 level [facility] Start: 10-08-2024 Influenza vaccination Influenza Vacc ine [facility] Comment on above: Postponed from 07/22 (Patient Ill Today) Start: 08-29-2024 Plain X-ray of right hip XR hi p RT min 2V(w/wo pelvis)* [facility] Start: 08-29-2024 XR Hip - right 2 Views [facility] Start: 08-20-2024 Patient referral [facility] Work Phone: Start: 08-17-2024 End: 08-17-2024 Patient encounter procedure 08/17/2024 2:40 PM EDT Office Visit [facility] [address] [place] [address] Kali Conklin DPM [address] [address] Arrived [facility] Comment on above: Arrived Start: 07-22-2024 COVID-19 Vaccine ( season) COVID-19 Vaccine ( season) [facility] Start: 07-22-2024 Influenza vaccination [facility] Start: 07-03-2024 Hemolytic complement CH50 [facility] Start: 06-14-2024 End: 06-14-2024 Patient encounter procedure 06/14/2024 1:30 PM EDT [facility] [address] [place] [address] Sascha Sutton DO [address], [facility] [place] [address] [facility] Start: 05-01-2024 End: 05-01-2024 Patient encounter procedure 05/01/2024 10:20 AM EDT [facility] [address] [place] [address] [facility] Start: 04-14-2024 Medicare Annual Well ness Visit Medicare Annual Wellness Visit [facility] Start: 04-09-2024 Hospital admission [facility] Start: 04-09-2024 End: 04-09-2024 [facility] Start: 03-13-2024 Hemolytic complement CH50 [facility] Start: 01-25-2024 End: 01-25-2024 Patient encounter procedure 01/25/2024 11:15 AM EST Office Visit [facility] [address] [place] [address] Bharath Cain DPM [address] [place] [address] [facility] Start: 01-10-2024 MRI of lumbar spine with contrast MR lumbar spine wo/w con [facility] Start: 01-03-2024 CT Abdomen and Pelvi s WO contrast [facility] Start: 01-03-2024 CT of abdomen and pe lvis without contrast CT abdomen pelvis wo con [facility] Start: 12-28-2023 End: 12-28-2023 Patient encounter procedure 12/28/2023 2:00 PM EST Office Visit [facility] [address] [place] [address] Bharath Cain, DPM [address] [place] [address] [facility] Start: 12-14-2023 End: 12-14-2024 XR Lumbar spine 2 or 3 Views X-ray spine lumbar 2 or 3 views Imaging Routine Midline low back pain without sciatica, unspecified chronicity Expected: 12/14/2023, Expires: 12/14/2024 [facility] Work Phone: Comment on above: Expected: 12/14/2023 , Expires: 12/14/2024 Start: 12-08-2023 Hemolytic complement CH50 level [facility] Start: 10-18-2023 COVID-19 Vaccine ( season) COVID-19 Vaccine ( season) [facility] Start: 09-20-2023 COVID-19 Vaccine (3 - Pfizer risk series) COVID-19 Vaccine (3 - Pfizer risk series) [facility] Start: 09-05-2023 Hemolytic complement CH50 level [facility] Start: 08-16-2023 [facility] Start: 05-31-2023 Hemolytic complement CH50 level [facility] Start: 05-18-2023 [facility] Start: 05-12-2023 FUV, Provider: Alfonso Trujillo, Status: Pen, Time: 10:00 AM FUV, Provider: Alfonso Trujillo, Status: Pen, Time: 10:00 AM [facility] 250 DO Work Phone: Start: 06-19-2023 FUV, Provider: Germaine Brown, Status: Pen, Time: 10:30 AM FUV, Provider: Germaine Brown, Status: Pen, Time: 10:30 AM [facility] 250 DO Work Phone: Start: 04-04-2023 [facility] Start: 04-04-2023 [facility], Provider: Alfonso Trujillo, Status: Pen, Time: 11:00 AM [facility], Provider: Alfonso Trujillo, Status: Pen, Time: 11:00 AM [facility] 250 DO Work Phone: Start: 01-31-2023 Hemolytic complement CH50 level [facility] Start: 10-26-2022 Hemolytic complement CH50 level [facility] Start: 2022 Abdominal aortic ane urysm screening [facility] Start: 2007 Prostate specific an tigen measurement PSA Prostate Cancer Screening [facility] Start: 2002 Screening for malign ant neoplasm of colon Colonoscopy [facility] Start: 1975 Adult BMI Follow Up Plan Adult BMI F ollow Up Plan [facility] Start: 1975 Diabetes mellitus screening Diabetes Screening [facility] Start: 1975 Hepatitis C screening Hepatitis C Sc [facility] Start: 1956 MMR Vaccines (1 of 1 - Standard series) MMR Vaccines (1 of 1 - Standard series) [facility] Start: 1957 Lipid panel Lipid Panel [facility] Start: 1955 Medicare Annual Well ness Visit Medicare Annual Wellness Visit (AWV) [facility] Start: 1955 Screening for malign ant neoplasm of colon [facility] Bilirubin measurement [facility] Body weight [facility] Calcium [Mass/time] in 24 hour Urine [facility] Calcium [Mass/volume ] in 24 hour Urine [facility] Calcium carbonate/To eligio in [facility] Calcium hydrogen phosphate dihydrate/Total in [facility] Calcium oxalate monohydrate/Total in [facility] Calcium phosphate level [facility] Calculus analysis wi th calculus photography [Interpretation] in Stone [facility] Calculus analysis, qualitative [facility] Calculus analysis, quantitative [facility] Calculus analysis, quantitative, infrared spectroscopy [facility] Cellular material [Mass/mass] of Stone by Estimated [facility] Cholesterol [Mass/vo lume] in Serum or Plasma [facility] Complement C3 [Mass/volume] in Serum or Plasma [facility] Work Phone: Complement C3 [Mass/volume] in Serum or Plasma [facility] Complement C3 [Mass/volume] in Serum or Plasma [facility] Complement C3 [Mass/volume] in Serum or Plasma [facility] Complement C3 [Mass/volume] in Serum or Plasma [facility] Complement C3 [Mass/volume] in Serum or Plasma [facility] Complement C3 [Mass/volume] in Serum or Plasma [facility] Complement C3 [Mass/volume] in Serum or Plasma [facility] Complement C4 [Mass/volume] in Serum or Plasma [facility] Work Phone: Complement C4 [Mass/volume] in Serum or Plasma [facility] Complement C4 [Mass/volume] in Serum or Plasma [facility] Complement C4 [Mass/volume] in Serum or Plasma [facility] Complement C4 [Mass/volume] in Serum or Plasma [facility] Complement C4 [Mass/volume] in Serum or Plasma [facility] Complement C4 [Mass/volume] in Serum or Plasma [facility] Complement C4 [Mass/volume] in Serum or Plasma [facility] End: 11-26-2025 Comprehensive metabolic 2000 panel - Serum or Plasma Comprehensive metabolic panel Lab Routine Essential hypertension 1 Occurrences starting 11/26/2024 until 11/26/2025 [facility] Work Phone: Comment on above: 1 Occurrences starti ng 11/26/2024 until 11/26/2025 Cystine measurement [facility] Determination of elizabeth culus chemical composition [facility] Evaluation procedure [facility] Hemolytic complement CH50 level [facility] Work Phone: Hydroxyapatite [Ener gy Difference] in 24 hour Urine [facility] Laboratory data interpretation [facility] Magnesium [Mass/time ] in 24 hour Urine [facility] Magnesium [Mass/volu me] in Urine [facility] MR Cervical spine WO contrast [facility] Newberyite/Total in Stone [facility] Oxalate [Mass/time] in 24 hour Urine [facility] Patient Education [facility] Work Phone: Patient referral [facility] Work Phone: Phosphate [Mass/time ] in 24 hour Urine [facility] Phosphate [Mass/volu me] in Urine [facility] End: 11-26-2025 Prostatic specific antigen screen Prostatic specific antigen screen Lab Routine Encounter for screening for malignant neoplasm of prostate 1 Occurrences starting 11/26/2024 until 11/26/2025 [employer] Comment on above: 1 Occurrences starti ng 11/26/2024 until 11/26/2025 Specimen source subj ect [Type] [facility] Triamterene measurement [facility] Triple phosphate/Tot al in [facility] Urate [Mass/time] in 24 hour Urine [facility] Urate [Mass/volume] in Urine [facility] Immunizations Immunization Date Immunization Notes Care Provider [facility] 11-03-2024 influenza, high dose seasonal, preservative-free Carlos Eden DO Work Phone: [facility] 11-03-2024 influenza virus vacc ine, unspecified formulation Kali Conklin DPM Work Phone: [facility] 09-06-2024 pneumococcal polysaccharide vaccine, 23 valent Sascha Furlong DO Work Phone: [employer] 03-06-2024 COVID-19 (MODERNA) 12Y and older DO Sascha Furlong Work Phone: [facility] 08-23-2023 Covid-19, Mrna, Lnp- s, Pf,erasmo-sucrose,30 Mcg/0.3ml Fall23 DO Sascha Furlong Work Phone: [facility] 08-23-2023 influenza virus vacc ine, unspecified formulation Zac MUNIZ [facility] 08-23-2023 Influenza, High-dose , Quadrivalent Sascha Sutton DO Work Phone: [facility] 08-23-2023 RSV vaccine, preF A- preF B, recombinant Zacgreyson MUNIZ [facility] 08-23-2023 RSV, bivalent, prote in subunit RSVpreF, diluent reconstituted, 0.5 mL, PF Sascha Sutton DO Work Phone: [facility] 05-20-2023 tetanus toxoid, redu coni diphtheria toxoid, and acellular pertussis vaccine, adsorbed Zacgreyson MUNIZ [facility] 12-05-2022 influenza virus vacc ine, unspecified formulation Zac MUNIZ [facility] 12-05-2022 influenza, seasonal, injectable Sascha Sutton Work Phone: [facility] 250 DO Work Phone: 10-08-2022 Pfizer COVID-19 Vac Bivalent 30 MCG/0.3ML Intramuscular Suspension Sascha Sutton Work Phone: [facility] 10-08-2022 SARS-COV-2 (COVID-19 ) Vaccine, Unspecified Sascha Sutton DO Work Phone: [facility] 09-07-2022 Fluzone High-Dose Quadrivalent 0.7 ML Intramuscular Suspension Prefilled Syringe Sascha Sutton Work Phone: [facility] 09-07-2022 influenza virus vacc ine, unspecified formulation Zac [employer] [facility] 04-16-2022 Prevnar 20 0.5 ML Intramuscular Suspension Prefilled Syringe Sascha G Furlong Work Phone: [facility] 09-23-2021 Lizeth COVID-19 Vac cine 0.5 ML Intramuscular Suspension Sascha G Furlong Work Phone: [facility] 07-28-2021 influenza virus vacc ine, unspecified formulation Kumbuya [facility] 07-28-2021 influenza, injectabl e, quadrivalent, preservative free Sascha G Furlong Work Phone: [facility] 250 DO Work Phone: 01-26-2021 Lizeth COVID-19 Vac cine 0.5 ML Intramuscular Suspension Sascha G Furlong Work Phone: [facility] 08-22-2020 influenza virus vacc ine, unspecified formulation Zac [employer] [facility] 08-22-2020 Influenza, injectabl e, Madin Magdalena Canine Kidney, preservative free, quadrivalent Sascha G Furlong Work Phone: [facility] 250 DO Work Phone: 08-26-2019 zoster vaccine recombinant Sascha G Furlong Work Phone: [facility] 08-20-2019 influenza virus vacc ine, unspecified formulation Zac MUNIZ [facility] 08-20-2019 Influenza, injectabl e, Madin Magdalena Canine Kidney, quadrivalent with preservative Sascha G Furlong Work Phone: [facility] 06-27-2019 zoster vaccine recombinant Sascha G Furlong Work Phone: [facility] 09-05-2018 influenza virus vacc ine, unspecified formulation Zac [employer] [facility] 09-05-2018 Influenza, injectabl e, Madin Hilda Canine Kidney, preservative free, quadrivalent Sascha G Furlong Work Phone: [facility] 07-28-2017 Influenza, injectabl e, Madin Magdalena Canine Kidney, preservative free, quadrivalent Sascha Furlong DO Work Phone: [facility] 09-16-2016 pneumococcal conjuga te vaccine, 13 valent Sascha G Furlong Work Phone: [facility] 09-09-2016 influenza virus vacc ine, unspecified formulation Kumbuya [facility] 09-09-2016 influenza, injectabl e, quadrivalent, contains preservative Sascha G Furlong Work Phone: [facility] 250 DO Work Phone: 12-05-2012 pneumococcal polysaccharide vaccine, 23 valent Sascha G Furlong Work Phone: [facility] 12-05-2012 tetanus toxoid, redu coni diphtheria toxoid, and acellular pertussis vaccine, adsorbed Sascha G Furlong Work Phone: [facility] 11-20-1990 hepatitis B vaccine, pediatric or pediatric/adolescent dosage Sascha G Furlong Work Phone: [facility] 10-04-1990 hepatitis B vaccine, pediatric or pediatric/adolescent dosage Sascha G Furlong Work Phone: [facility] Payers Date Payer Category Payer Medicare supplementa l policy (as second payer) AARP [id number] 2024 Self-pay [id number] 2023 Unknown 2022 Managed Care Other (unspecified) [facility] Member Subscriber Plan / Payer (Effective 2022-Present) Name: Valentin Torre R Relation to Subscriber: Self Name: Valentin Torre Payer ID: [id number] (NAIC) Group ID: Not on file Type: Not on file Address: [address] [place] [id number] 2022 Medicare [id number] 2022 Private Health Insurance [id number]. [id number] 2022 Medicare [id number] 1959 Medicare [id number] 1959 Unknown [id number] 1957 Unknown [id number] 2.16.840.1.315254.3.579. 2.593 1957 Unknown [id number] 2.16.840.1.532138.3.579. 2.593 1957 Unknown [id number] 2.16.840.1.641047.3.579. 2.356 1957 Unknown [id number] 2.16.840.1.190764.3.579. 2.356 1957 Unknown [id number] 2.16.840.1.292336.3.579. 2.356 1957 Unknown [id number] 2.16.840.1.495040.3.579. 2.1285 1957 Unknown [id number] 2.16840.1.462055.3.579. 2.1285 1957 Unknown [id number] 2.840.1.428689.3.579. 2.1285 1957 Unknown [id number] 2.16840.1.240987.3.579. 2.1285 1957 Unknown [id number] 2.840.1.640830.3.579. 2.1285 1957 Unknown [id number] 2.16840.1.079188.3.579. 2.1285 1957 Unknown [id number] 2.16840.1.588924.3.579. 2.1285 1957 Unknown [id number] 2.16840.1.284714.3.579. 2.1285 1957 Unknown [id number] 2.16.840.1.953434.3.579. 2.1285 1957 Unknown [id number] 2.16.840.1.982901.3.579. 2.1285 1957 Unknown [id number] 2.16840.1.303115.3.579. 2.128 1957 Unknown [id number] 2.16.840.1.159467.3.579. 2.1285 1957 Unknown [id number] 2.16.840.1.608084.3.579. 2.1285 1957 Unknown [id number] 2.16.840.1.785240.3.579. 2.1285 1957 Unknown [id number] 2.16.840.1.619822.3.579. 2.1285 1957 Unknown [id number] 2.16.840.1.736071.3.579. 2. 1957 Unknown [id number] 2.16.840.1.617012.3.579. 2. 1957 Unknown [id number] 2.16840.1.197987.3.579. 2. 1957 Unknown [id number] 2.16.840.1.901029.3.579. 2. 1957 Unknown [id number] 2.16.840.1.665402.3.579. 2. 1957 Unknown [id number] 2.16.840.1.521066.3.579. 2. 1957 Unknown [id number] 2.16840.1.955671.3.579. 2. 1957 Unknown [id number] 2.16.840.1.664576.3.579. 2.1258 1957 Unknown [id number] 2.16.840.1.742631.3.579. 2.1258 1957 Unknown [id number] 2.16.840.1.195825.3.579. 2.1258 1957 Unknown [id number] 2.16.840.1.360635.3.579. 2.1258 1957 Unknown [id number] 2.16.840.1.895532.3.579. 2.1258 1957 Unknown [id number] 2.16.840.1.399643.3.579. 2.1258 1957 Unknown [id number] 2.16.840.1.572091.3.579. 2.1258 1957 Unknown [id number] 2.16.840.1.516208.3.579. 2.1258 1957 Unknown [id number] 2.16.840.1.787427.3.579. 2.1258 1957 Unknown [id number] 2.16840.1.967372.3.579. 2.1258 1957 Unknown [id number] 2.16840.1.008846.3.579. 2.1258 1957 Unknown [id number] 2.840.1.251570.3.579. 2.1258 1957 Unknown [id number] 2.840.1.869794.3.579. 2.1258 1957 Unknown [id number] 2.840.1.803243.3.579. 2.1258 1957 Unknown [id number] 2.840.1.307202.3.579. 2.1258 1957 Unknown [id number] 2.16840.1.190916.3.579. 2.1243 1957 Unknown [id number] 2.840.1.820967.3.579. 2.124 Unknown [id number] Unknown [facility] [id number] Unknown [facility] [id number] Unknown [id number] 2.16.840.1.359548.3.579. 2.531 Unknown [id number] 2.16.840.1.849608.3.579. 2.531 Unknown [id number] 2.16.840.1.233137.3.579. 2.531 Unknown [id number] 2.16.840.1.757291.3.579. 2.531 Unknown [id number] 2.16.840.1.600448.3.579. 2.531 Unknown [id number] 2.16.840.1.899532.3.579. 2.531 Unknown [id number] 2.16.840.1.371527.3.579. 2.531 Unknown [id number] 2.16.840.1.813980.3.579. 2.531 Unknown [id number] 2.16.840.1.358490.3.579. 2.531 Unknown [id number] 2.16.840.1.875104.3.579. 2.531 Unknown [id number] 2.16.840.1.061397.3.579. 2.531 Unknown [id number] 2.16.840.1.066489.3.579. 2.531 Unknown [id number] 2.16.840.1.839135.3.579. 2.531 Unknown [id number] 2.16.840.1.074799.3.579. 2.531 Unknown [id number] 2.16.840.1.951153.3.579. 2.531 Unknown [id number] 2.16.840.1.197702.3.579. 2.531 Social History Date Type Detail Facility Start: 10-17-2019 End: 05-09-2024 Tobacco smoking status ORIS Ex-smoker (finding) [facility] Start: 1955 Sex Assigned At Male [facility] Start: 12-28-2023 End: 04-09-2025 No alcohol use No alcohol use [facility] Comment on above: pop occasioanl; quit in the 90's; Start: 12-28-2023 End: 04-09-2025 Sex Assigned At Male [facility] Start: 03-29-2023 Tobacco smoking status Never [facility] Start: 12-26-2023 Tobacco smoking stat us NHIS Never smoked tobacco [facility] Start: 12-26-2023 End: 05-09-2024 Tobacco use and exposure Smokeless tobacco non-user [facility] Start: 12-26-2023 End: 06-27-2025 Alcohol intake Lifetime non-drinker (finding) [facility] Start: 12-26-2023 Alcohol Comment none caffeine [facility] Start: 1955 Sex Assigned At Not on file [facility] Start: 06-15-2018 End: 10-11-2024 Sex Male (finding) [facility] Start: 05-28-1975 End: 05-28-1987 History of tobacco use Current smoker [facility] Start: 05-28-1975 End: 05-28-1987 History of tobacco use Cigarette Smoker [facility] History of tobacco use Passive smoker [facility] Start: 10-09-2024 End: 06-11-2025 Alcoholic beverage intake [facility] Has the [employer], or [employer] threatened to shut off services in your home in past 12Mo No [facility] Do you belong to any clubs or organizations such as yarsani groups, unions, fraternal or athletic groups, or school groups? Yes [facility] Are you now , , , , never or living with a partner? [facility] How often to you hav e a drink containing alcohol? Never [facility] Do you feel stress - tense, restless, nervous, or anxious, or unable to sleep at night because your mind is troubled all the time - these days [OSQ] Not at all [facility] Sexual Orientation [facility] Medical Equipment Procedure Code Equipment Code Equipment Origin al Text Equipment Identifier Dates CAGE [id number] 6DE G CAPSTONE FDA Start: 07-24-2019 SCREW [...] 6X45MM POLY AESCULAP FDA Start: 07-24-2019 CAGE [id number] 6DE G [employer] FDA Start: 07-24-2019 SCREW [...] 6X45MM POLY AESCULAP FDA Start: 07-24-2019 CAGE [id number] 6DE G [employer] FDA Start: 07-24-2019 SCREW [...] 6X45MM POLY AESCULAP FDA Start: 07-24-2019 CAGE [id number] 6DE G [employer] FDA Start: 07-24-2019 SCREW [...] 6X45MM POLY AESCULAP FDA Start: 07-24-2019 CAGE [id number] 6DE G [employer] FDA Start: 07-24-2019 SCREW [...] 6X45MM POLY AESCULAP FDA Start: 07-24-2019 CAGE [id number] 6DE G [employer] FDA Start: 07-24-2019 SCREW [...] 6X45MM POLY AESCULAP FDA Start: 07-24-2019 CAGE [id number] 6DE G [employer] FDA Start: 07-24-2019 SCREW [...] 6X45MM POLY AESCULAP FDA Start: 07-24-2019 CAGE [id number] 6DE G [employer] FDA Start: 07-24-2019 SCREW [...] 6X45MM POLY AESCULAP FDA Start: 07-24-2019 CAGE [id number] 6DE G [employer] FDA Start: 07-24-2019 SCREW [...] 6X45MM POLY AESCULAP FDA Start: 07-24-2019 CAGE [id number] 6DE G [employer] FDA Start: 07-24-2019 SCREW SET S4 AESCULAP FDA Start: 07-24-2019 SCREW SET S4 AESCULAP FDA Start: 07-24-2019 SCREW SET S4 AESCULAP FDA Start: 07-24-2019 SCREW SET S4 AESCULAP FDA Start: 07-24-2019 CANCELLOUS COARS E 7.5CC FDA Start: 07-24-2019 INFUSE XX SMALL 0.7CC FDA Start: 07-24-2019 ARASH S4 CVD 5.5X4 5MM AESCULAP FDA Start: 07-24-2019 ARAHS S4 CVD 5.5X5 0MM AESCULAP FDA Start: 07-24-2019 SCREW S4 6X40MM MONO AESCULAP FDA Start: 07-24-2019 SCREW S4 6X40MM MONO AESCULAP FDA Start: 07-24-2019 SCREW S4 6X45MM POLY AESCULAP FDA Start: 07-24-2019 SCREW S4 6X45MM POLY AESCULAP FDA Start: 07-24-2019 CAGE [id number] 6DE G [employer] FDA Start: 07-24-2019 SCREW [...] 6X45MM POLY AESCULAP FDA Start: 07-24-2019 CAGE [id number] 6DE G [employer] FDA Start: 07-24-2019 SCREW [...] 6X45MM POLY AESCULAP FDA Start: 07-24-2019 CAGE [id number] 6DE G [employer] FDA Start: 07-24-2019 SCREW [...] 6X45MM POLY AESCULAP FDA Start: 07-24-2019 CAGE [id number] 6DE G [employer]ONE FDA Start: 07-24-2019 SCREW [...] 6X45MM POLY AESCULAP FDA Start: 07-24-2019 CAGE [id number] 6DE G [employer] FDA Start: 07-24-2019 SCREW [...] 6X45MM POLY AESCULAP FDA Start: 07-24-2019 CAGE [id number] 6DE G [employer]ONE FDA Start: 07-24-2019 SCREW SET S4 AESCULAP FDA Start: 07-24-2019 SCREW SET S4 AESCULAP FDA Start: 07-24-2019 SCREW SET S4 AESCULAP FDA Start: 07-24-2019 SCREW SET S4 AESCULAP FDA Start: 09-03-2019 CANCELLOUS COARS E 7.5CC FDA Start: 07-24-2019 [...] 6X45MM POLY AESCULAP FDA Start: 07-24-2019 CAGE [id number] 6DE G [employer]ONE FDA Start: 07-24-2019 SCREW [...] 6X45MM POLY AESCULAP FDA Start: 07-24-2019 CAGE [id number] 6DE G [employer]ONE FDA Start: 07-24-2019 SCREW [...] 6X45MM POLY AESCULAP FDA Start: 07-24-2019 CAGE [id number] 6DE G [employer] FDA Start: 07-24-2019 SCREW [...] 6X45MM POLY AESCULAP FDA Start: 07-24-2019 CAGE [id number] 6DE G [employer]ONE FDA Start: 07-24-2019 SCREW [...] 6X45MM POLY AESCULAP FDA Start: 07-24-2019 CAGE [id number] 6DE G [employer]ONE FDA Start: 07-24-2019 SCREW [...] 6X45MM POLY AESCULAP FDA Start: 07-24-2019 CAGE [id number] 6DE G [employer] FDA Start: 07-24-2019 SCREW [...] 6X45MM POLY AESCULAP FDA Start: 07-24-2019 CAGE [id number] 6DE G [employer] FDA Start: 07-24-2019 SCREW [...] 6X45MM POLY AESCULAP FDA Start: 07-24-2019 CAGE [id number] 6DE G [employer] FDA Start: 07-24-2019 SCREW [...] 6X45MM POLY AESCULAP FDA Start: 07-24-2019 CAGE [id number] 6DE G [employer]ONE FDA Start: 07-24-2019 SCREW [...] 6X45MM POLY AESCULAP FDA Start: 07-24-2019 CAGE [id number] 6DE G [employer] FDA Start: 07-24-2019 SCREW [...] 6X45MM POLY AESCULAP FDA Start: 07-24-2019 CAGE [id number] 6DE G [employer] FDA Start: 07-24-2019 SCREW [...] 6X45MM POLY AESCULAP FDA Start: 07-24-2019 CAGE [id number] 6DE G [employer] FDA Start: 07-24-2019 SCREW [...] 6X45MM POLY AESCULAP FDA Start: 07-24-2019 CAGE [id number] 6DE G [employer] FDA Start: 07-24-2019 SCREW [...] 6X45MM POLY AESCULAP FDA Start: 07-24-2019 CAGE [id number] 6DE G [employer] FDA Start: 07-24-2019 SCREW [...] 6X45MM POLY AESCULAP FDA Start: 07-24-2019 CAGE [id number] 6DE G [employer] FDA Start: 07-24-2019 SCREW [...] 6X45MM POLY AESCULAP FDA Start: 07-24-2019 CAGE [id number] 6DE G [employer] FDA Start: 07-24-2019 SCREW [...] 6X45MM POLY AESCULAP FDA Start: 07-24-2019 CAGE [id number] 6DE G [employer] FDA Start: 07-24-2019 SCREW [...] 6X45MM POLY AESCULAP FDA Start: 07-24-2019 CAGE [id number] 6DE G [employer] FDA Start: 07-24-2019 SCREW [...] 6X45MM POLY AESCULAP FDA Start: 07-24-2019 CAGE [id number] 6DE G [employer] FDA Start: 07-24-2019 SCREW [...] 6X45MM POLY AESCULAP FDA Start: 07-24-2019 CAGE [id number] 6DE G [employer] FDA Start: 07-24-2019 SCREW [...] 6X45MM POLY AESCULAP FDA Start: 07-24-2019 CAGE [id number] 6DE G [employer] FDA Start: 07-24-2019 SCREW [...] 6X45MM POLY AESCULAP FDA Start: 07-24-2019 CAGE [id number] 6DE G [employer]ONE FDA Start: 07-24-2019 SCREW [...] 6X45MM POLY AESCULAP FDA Start: 07-24-2019 CAGE [id number] 6DE G [employer]ONE FDA Start: 07-24-2019 SCREW [...] 6X45MM POLY AESCULAP FDA Start: 07-24-2019 CAGE [id number] 6DE G [employer] FDA Start: 07-24-2019 SCREW [...] 6X45MM POLY AESCULAP FDA Start: 07-24-2019 CAGE [id number] 6DE G [employer] FDA Start: 07-24-2019 SCREW [...] 6X45MM POLY AESCULAP FDA Start: 07-24-2019 CAGE [id number] 6DE G [employer] FDA Start: 07-24-2019 SCREW [...] 6X45MM POLY AESCULAP FDA Start: 07-24-2019 CAGE [id number] 6DE G [employer]ONE FDA Start: 07-24-2019 SCREW [...] 6X45MM POLY AESCULAP FDA Start: 07-24-2019 CAGE [id number] 6DE G [employer]ONE FDA Start: 07-24-2019 SCREW [...] 6X45MM POLY AESCULAP FDA Start: 07-24-2019 CAGE [id number] 6DE G [employer]ONE FDA Start: 07-24-2019 SCREW [...] 6X45MM POLY AESCULAP FDA Start: 07-24-2019 CAGE [id number] 6DE G [employer] FDA Start: 07-24-2019 SCREW [...] 6X45MM POLY AESCULAP FDA Start: 07-24-2019 CAGE [id number] 6DE G [employer] FDA Start: 07-24-2019 SCREW [...] 6X45MM POLY AESCULAP FDA Start: 07-24-2019 CAGE [id number] 6DE G [employer] FDA Start: 07-24-2019 SCREW [...] S4 6X45MM POLY AESCULAP FDA Start: 07-24-2019 [id number] CAGE [id number] 6DE G [employer]ONE FDA Start: 07-24-2019 SCREW [...] 6X45MM POLY AESCULAP FDA Start: 07-24-2019 CAGE [id number] 6DE G [employer]ONE FDA Start: 07-24-2019 SCREW [...] 6X45MM POLY AESCULAP FDA Start: 07-24-2019 CAGE [id number] 6DE G [employer]ONE FDA Start: 07-24-2019 SCREW [...] 6X45MM POLY AESCULAP FDA Start: 07-24-2019 CAGE [id number] 6DE G [employer]ONE FDA Start: 07-24-2019 SCREW [...] 6X45MM POLY AESCULAP FDA Start: 07-24-2019 CAGE [id number] 6DE G [employer]ONE FDA Start: 07-24-2019 SCREW [...] 6X45MM POLY AESCULAP FDA Start: 07-24-2019 CAGE [id number] 6DE G [employer] FDA Start: 07-24-2019 SCREW [...] 6X45MM POLY AESCULAP FDA Start: 07-24-2019 CAGE [id number] 6DE G [employer]ONE FDA Start: 07-24-2019 SCREW [...] 6X45MM POLY AESCULAP FDA Start: 07-24-2019 CAGE [id number] 6DE G [employer] FDA Start: 07-24-2019 SCREW [...] 6X45MM POLY AESCULAP FDA Start: 07-24-2019 CAGE [id number] 6DE G [employer]ONE FDA Start: 07-24-2019 SCREW [...] 6X45MM POLY AESCULAP FDA Start: 07-24-2019 CAGE [id number] 6DE G [employer]ONE FDA Start: 07-24-2019 SCREW [...] 6X45MM POLY AESCULAP FDA Start: 07-24-2019 CAGE [id number] 6DE G [employer]ONE FDA Start: 07-24-2019 SCREW [...] 6X45MM POLY AESCULAP FDA Start: 07-24-2019 CAGE [id number] 6DE G [employer] FDA Start: 07-24-2019 SCREW [...] 6X45MM POLY AESCULAP FDA Start: 07-24-2019 CAGE [id number] 6DE G [employer]ONE FDA Start: 07-24-2019 SCREW [...] 6X45MM POLY AESCULAP FDA Start: 07-24-2019 CAGE [id number] 6DE G [employer] FDA Start: 07-24-2019 SCREW [...] 6X45MM POLY AESCULAP FDA Start: 07-24-2019 CAGE [id number] 6DE G [employer]ONE FDA Start: 07-24-2019 SCREW [...] 6X45MM POLY AESCULAP FDA Start: 07-24-2019 CAGE [id number] 6DE G [employer]ONE FDA Start: 07-24-2019 SCREW [...] Facility 02-16-2025 Functional status Patient at [facility] Work Phone: 02-15-2025 Functional status Patient at [facility] Work Phone: 09-03-2024 Functional Status N/A [facility] 05-15-2024 Functional Status N/A [facility] 03-20-2024 Functional Status N/A [facility] 01-18-2024 Functional Status N/A [facility] 09-19-2023 Functional Status N/A [facility] [facility] Mental Status Date Assessment Result Facility 02-16-2025 Cognitive function Cognitive Sta tus Patient at Baseline [facility] Work Phone: 02-15-2025 Cognitive function Cognitive Sta tus Patient at Baseline [facility] Work Phone: Clinical Notes 04-09-2022 to 06-27-2025 Kali Conklin DPM - 06/27/2025 11:50 AM Dennise Trujillo DO - 06/20/2025 9:20 AM EDTPatient Aleksander Orlando APRN-JOHN - 06/11/2025 2:00 PM EDT Note Date & Type Note Facility 06-27-2025 History of Present illness Narrative Patient: Valentin Torre : 1955 PCP: Sascha Sutton MD SUBJECTIVE This is a 70 y.o. male that presents today for follow up of suspected right EDL tendinitis with su splint. Is taking nsaids as well as using PT in the past with improvement. Patient states he has home health exercises that is been doing daily with improvementPatient rates pain a 3/10 Patient does have limb length discrepancy and orthotics Patient presents today with a CC of elongated, thick nails. Pt states nails have been elongated and thick for many years and cause pain with ambulation in shoegear. Pt has tried previous treatment with minimal relief. Pt presents today for nail care and treatment. Pt has hx of xerosis to feet Patient has history of SLE and rheumatoid arthritis. Allergies: Allergies Allergen Reactions Aspirin Buf(Kufciq-Tsbexn-Esr) Other Reaction(s): Other (See Comments), Unknown Abdominal [...] tablet, Take by mouth, Disp: , Rfl: aspirin 81 MG EC tablet, Take 81 mg by mouth Daily, Disp: , Rfl: budesonide (Rhinocort AQ) 32 MCG/ACT nasal spray, 62,500 sprays (Patient not taking: Reported on 05/15/2025), Disp: , Rfl: colchicine 0.6 MG tablet, , Disp: , Rfl: dexAMETHasone (Decadron) 2 MG tablet, Take 1 tablet by mouth once daily for 7 days. (Patient not taking: Reported on 05/15/2025), Disp: 7 tablet, Rfl: 1 dutasteride (Avodart) 0.5 MG capsule, Take 0.5 mg by mouth Daily, Disp: , Rfl: Fexofenadine-Pseudoephedrine (SEEMA-D 24 HOUR PO), Take 1 tablet by mouth Daily as needed, Disp: , Rfl: fluticasone (Flonase) 50 MCG/ACT nasal spray, Administer 1 spray into each nostril Daily Shake gently. Before first use, prime pump. After use, clean tip and replace cap., Disp: , Rfl: folic acid (Folvite) 1 MG tablet, folic acid 1 mg tablet, Disp: , Rfl: gabapentin (Neurontin) 100 MG capsule, Take 1 capsule (100 mg) by mouth in the morning and 1 capsule (100 mg) in the evening and 1 capsule (100 mg) before bedtime., Disp: 270 capsule, Rfl: 3 hydroxychloroquine (Plaquenil) 200 MG tablet, hydroxychloroquine 200 [...] MG/ML oral solution, Take 2.5 mg by mouth (Patient not taking: Reported on 05/15/2025), Disp: , Rfl: Methotrexate Sodium (methotrexate PF) 50 MG/2ML syringe, , Disp: , Rfl: methylPREDNISolone (Medrol Dospak) 4 MG tablets, TAKE BY MOUTH INSTRUCTED - PER PACKAGE INSTRUCTIONS, Disp: 21 tablet, Rfl: 0 montelukast (Singulair) 10 MG tablet, Take by mouth, Disp: , Rfl: nabumetone (Relafen) 750 MG tablet, Take 750 mg by mouth (Patient not taking: Reported on 05/15/2025), Disp: , Rfl: omeprazole (PriLOSEC) 40 MG [...] Resource Strain: Low Risk (04/14/2023) Received from [facility] Overall Financial Resource Strain (CARDIA) Difficulty of Paying Living Expenses: Not hard at all Food Insecurity: No Food Insecurity (06/11/2025) Received from [facility] Hunger Screening Within the past 12 months we worried whether our food would run out before we got money to buy more.: Never True Within the past 12 months the food we bought just didn't last and we didn't have money to get more.: Never True Transportation Needs: No Transportation Needs (04/14/2023) Received from [facility] PRAPARE - Transportation Lack of Transportation (Medical): No Lack of Transportation (Non-Medical): No Physical Activity: Inactive (05/07/2025) Received from [facility] Exercise Vital Sign Days of Exercise per Week: 0 days Minutes of Exercise per Session: 0 min Stress: No Stress Concern Present (04/14/2023) Received from [facility] [employer] [place] [employer] - Occupational Stress Questionnaire Feeling of Stress : Not at all Social Connections: Moderately Integrated (04/14/2023) Received from [facility] Social Connection and Isolation Panel [NHANES] Frequency of Communication with Friends and Family: Once a week Frequency of Social Gatherings with Friends and Family: Once a week Attends Rastafari Services: More than 4 times per year Active Member of Clubs or Organizations: Yes Attends Club or Organization Meetings: Never Marital Status: Intimate Partner Violence: Not on file Housing Stability: Low Risk (04/14/2023) Received from [facility] Housing Instability Are you worried or concerned [...] cuneiform joint bilaterally have positive bony exostosis negative fissure to right heel with negative drainage or erythema VASC: Positive palpable pedal pulses bilaterally NEURO: Gross sensation intact to bilateral feet ORTHO: Positive pain on palpation to toenails of the left 1,2,3,4,5 toes and right 1,2,3,4,5 toes Minimal pain to bony exostosis to bilateral feet Notable left leg longer than right leg of a proximally yvk-mwghoqy-rruz diminished pain on palpation of right lateral anterior su along tibial crest and extends along the EDL tendon complex to dorsum of his foot with pain with resisted dorsiflexion of foot and ankle on the right ASSESSMENT 1. Pain due to onychomycosis of toenails of both feet 2. Xerosis cutis 3. Su splint, right, initial encounter 4. Tenosynovitis of right lower leg 5. 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 Subjective Valentin Torre is a 70 y.o. male 70-year-old gentleman seen in cardiology consultation at request of family practitioner for 2 episodes of syncope this past May. First episode he did not seek out medical advice, second episode he went to a [place] emergency room, details of which are unavailable however and patient states his labs were normal and was told to follow-up with his family practitioner. states that both episodes are at rest, 1 was sitting on the couch, the other 1 was while simply walking in the house, he tilts forward and gradually falls and becomes unconscious and is very difficult to arouse; there is a component of cognitive abnormality postevent; where it takes approximately 1 hour before he is back to his normal cognitive and neurologic status. He denies any chest heaviness, pressure discomfort or shortness of breath. Reportedly there is no seizure-like activity. Patient had a similar episode back in 2022, underwent stress imaging and cardiac catheterization with myself, catheterization was completely normal with normal LV function and normal coronary arteries His past medical history is noted for hypertension, obesity, hyperlipidemia, rheumatoid arthritis, lupus, and reportedly undifferentiated connective tissue disease, prostatic hypertrophy currently on tamsulosin and seeking to undergo TURP shortly. Today's ECG reveals sinus rhythm at 69 with low QRS voltage, PVCs, nonspecific T wave abnormality, normal QT interval of 398. There are number of etiologies for syncope including antihypertensive therapies, underlying connective tissue disorder and possible neurologic involvement with lupus, PVCs on today's ECG, alpha-sandy in the form of tamsulosin. Recommendations: Proceed with 30-day event monitor, tilt table test, I do recommend following up with neurology for further imaging and evaluation; and will follow-up in 3 months for assessment with nurse practitioner ROS Vitals: 06/20/25 0937 06/20/25 0938 BP: 126/76 122/74 BP Location: Left arm Right arm Patient Position: Sitting Sitting Pulse: 69 Weight: 101 kg (221 lb 12.8 oz) Height: 1.702 m (5' 7 ) Objective Physical Exam Constitutional: Appearance: Normal appearance. HENT: Nose: Nose normal. Neck: Vascular: No carotid bruit. Cardiovascular: Rate and Rhythm: Normal rate. Pulses: Normal pulses. Heart sounds: Normal heart sounds. Pulmonary: Effort: Pulmonary effort is normal. Abdominal: General: Bowel sounds are normal. Palpations: Abdomen is soft. Musculoskeletal: General: Normal range of motion. Cervical back: Normal range of motion. Right lower leg: No edema. Left lower leg: No edema. Skin: General: Skin is warm and dry. Neurological: General: No focal deficit present. Mental Status: He is alert. Psychiatric: Mood and Affect: Mood normal. Behavior: Behavior normal. Thought Content: Thought content normal. Judgment: Judgment normal. Allergies Bufferin [aspirin,buffd-calcium carb-mag]; Cephalexin; Oxycodone; and Sulfa (sulfonamide antibiotics) Current Medications Current Outpatient Medications Medication Instructions acetaminophen (TYLENOL) 1,000 mg, 2 times daily aspirin 81 mg, Daily budesonide-formoterol (Symbicort) 80-4.5 mcg/actuation inhaler 2 puffs, 2 times daily RT dutasteride (AVODART) 0.5 mg, Daily eyelid cleanser combination 3 (OCUSOFT LID SCRUB PLUS TOP) Apply topically. fexofenadine-pseudoephedrine (Seema-D) 60-120 mg 12 hr tablet 1 tablet, 2 times daily fluticasone (Veramyst) 27.5 mcg/actuation nasal spray 2 sprays, Daily RT folic acid (FOLVITE) 1 mg, Daily gabapentin (NEURONTIN) 100 mg, 3 times daily hydroCHLOROthiazide (MICROZIDE) 12.5 mg, Daily hydroxychloroquine (PLAQUENIL) 200 mg, 2 times daily leflunomide (ARAVA) 10 mg, Daily leucovorin (WELLCOVORIN) 5 mg, Daily lisinopril 20 mg, Daily lubricating eye drops ophthalmic solution 1 drop, As needed meloxicam (MOBIC) 15 mg, Daily methotrexate sodium/PF (methotrexate, PF,) 25 mg/mL 1 mL, Weekly methylPREDNISolone (MEDROL) 4 mg, Daily montelukast (SINGULAIR) 10 mg, Nightly omeprazole (PRILOSEC) 40 mg, Daily before breakfast potassium bicarbonate (K-Lyte) 25 mEq effervescent tablet 25 mEq, 2 times daily prednisoLONE acetate (Pred-Forte) 1 % ophthalmic suspension 1 drop, 4 times daily simvastatin (ZOCOR) 20 mg, Nightly tamsulosin (FLOMAX) 0.4 mg, Daily traMADol (ULTRAM) 50 mg, 2 times daily Assessment/Plan 1. Preop cardiovascular exam 2. Syncope, unspecified syncope type 3. Mixed hyperlipidemia 4. Essential (primary) hypertension 5. PVC (premature ventricular contraction) 6. Systemic lupus erythematosus, unspecified SLE type, unspecified organ involvement status (Multi) 7. BMI 34.0-34.9,adult 8. Former smoker Scribe Attestation By signing my name below, I, Corrie Phelan LPN attest that this documentation has been prepared under the direction and in the presence of Alfonso Trujillo DO. Provider Attestation - Scribe documentation All medical record entries made by the Scribe were at my direction and personally dictated by me. I have reviewed the chart and agree that the record accurately reflects my personal performance of the history, physical exam, discussion and plan. documented in this encounter [facility] Work Phone: 06-20-2025 Instructions Bonnie Schneider LPN - 06/20/2025 9:20 AM EDT Please bring all medicines, vitamins, and herbal supplements with you when you come to the office. Prescriptions will not be filled unless you are compliant with your follow up appointments or have a follow up appointment scheduled as per instruction of your physician. Refills should be requested at the time of your visit. BMI was above normal measurement. Current weight: 101 kg (221 lb 12.8 oz) Weight change since last visit (-) denotes wt loss 7.8 lbs Weight loss needed to achieve BMI 25: 62.5 Lbs Weight loss needed to achieve BMI 30: 30.7 Lbs Provided instructions on dietary changes. POC pending testing The following attachments cannot be sent through Care Everywhere.Heart Healthy Diet (Tajik)documented in this encounter [facility] Work Phone: 06-12-2025 Hospital Discharge instructions Patient Education 06/12/2025 [...] Follow these instructions at home: Medicines Take yzlv-bbn-corbgov and prescription medicines only as told by [...] to keep your urine pale yellow. Take qtip-asw-tcjnpxu or prescription medicines. Eat foods that are [...] provider. Document Revised: 08/03/2022 Document Reviewed: 08/03/2022 [employer] Patient Education 2023 [employer]. 06/12/2025 07:51:45 Transurethral Resection of the Prostate [...] including vitamins, herbs, eye drops, creams, and dquq-xnk-klgzahs medicines. Any problems you or family members [...] provider tells you to take them. Taking eeqm-lwz-wxvbexd medicines, vitamins, herbs, and supplements. Surgery safety [...] provider. Document Revised: 08/03/2022 Document Reviewed: 08/03/2022 [employer] Patient Education 2023 Thermodynamic Process Control. Follow Up Care 05/14/2025 13:50:07 With:FLAVIO ONEAL, Zac R, URL Address: [facility] [address] [place] [address]- [phone] When: Unknown [facility] 06-12-2025 Note Patient Education Urology Transurethral Resection [...] these instructions at home: Medicines ??? Take rjne-uyk-awshbgp and prescription medicines only as told by [...] keep your urine pale yellow. ??? Take vxib-tud-cjxmryc or prescription medicines. ??? Eat foods that [...] Revised: 08/03/2022 D (more content not included)... [facility] 06-11-2025 History of Present illness Narrative IM PROGRESS NOTE Patient - Valentin Torre Age - 70 y.o. - 1955 ASSESSMENT & PLAN 1. Hospital discharge follow-up (Primary) ER -advised patient to follow up with Cardiology -advised patient to follow up with Neurology 2. Syncope, unspecified syncope type -recommended 30 day event monitor -patient to call stripper latex to get that ordered since the cardiologists are not in the [employer] system who they see -orthostatic blood pressure [...] for Next scheduled follow up. [facility] Office: [phone] This note is dictated with the use of M*Modal. Please note that this dictation was completed with computer voice recognition software. Quite often unanticipated grammatical, syntax, homophones, and other interpretive errors are inadvertently transcribed by the computer software. Please disregard these errors. Please excuse any errors that have escaped final proofreading. DOMINGO Hyatt 06/11/25 1451 documented in this encounter [facility] 06-03-2025 Telephone encounter Note Patient to call back if no improvement with steroid pack for appt. [facility] 06-03-2025 Miscellaneous Notes Patient to call back if no improvement with steroid pack for appt. documented in this encounter [facility] 05-28-2025 History of Present illness Narrative Subjective Patient ID: Valentin Torre is a 70 y.o. male. Valentin presents to discuss his PFT's. They were ordered by his staff midwife and were abnormal. He gets short of [...] prescribed diet education. documented in this encounter [facility] [employer] 05-15-2025 History of Present illness Narrative Images [...] felt better after going inside in the HEADACHES -States he has had more headaches [...] Take by mouth Allergies Allergen Reactions Aspirin Buf(Agxqlj-Vbtyjq-Nbb) Other Reaction(s): Other (See Comments), Unknown Abdominal [...] Depression: Not at risk (05/07/2025) Received from [facility] PHQ-2 Total Score: 0 REVIEW OF SYMPTOMS: [...] Teja's absent. Ankle clonus absent. Coordination Right: Ayceyc-bx-glfs normal. Rapid alternating movement normal.Left: Qahtmk-xs-qcmq normal. Rapid alternating movement normal. Slight intention [...] before bedtime. Polyneuropathy documented in this encounter [facility] 05-07-2025 History of Present illness Narrative [...] Do you have a durable power of progress worker?: Yes Cognitive Screening Do you have trouble [...] year (around 05/07/2026). [facility] Procedure note [facility] enter 04-29-2025 Hospital Discharge instructions Patient [...] including vitamins, herbs, eye drops, creams, and evet-lzl-bhtrfot medicines. Any problems you or family members [...] provider tells you to take them. Taking rhcf-lzz-wuyezfs medicines, vitamins, herbs, and supplements. Tests You [...] Follow these instructions at home: Medicines Take pizt-woc-hfbfqbj and prescription medicines only as told by [...] provider. Document Revised: 07/21/2022 Document Reviewed: 06/19/2021 [employer] Patient Education 2023 Thermodynamic Process Control. Follow Up Care 10/30/2024 09:42:08 With:FLAVIO ONEAL, Zac De Oliveira, URL Address: [facility] [address] [place] [address]- When: Unknown [facility] 04-29-2025 Note Patient Education Urology Cystoscopy Cystoscopy [...] including vitamins, herbs, eye drops, creams, and sckg-tnc-vxphlll medicines. ??? Any problems you or family [...] tells you to take them. ??? Taking bths-qtj-xfzyzwt medicines, vitamins, herbs, and supplements. Tests You [...] these instructions at home: Medicines ??? Take wnse-ait-kzhkexd and prescription medicines only as told by [...] (biopsy) during your (more content not included)... [facility] 04-16-2025 History of Present illness Narrative Images [...] Exam Vitals reviewed. Exam conducted with a office bookkeeper present (Peter Emanuel MS 3). Constitutional: General: [...] if no better documented in this encounter [facility] 04-10-2025 Miscellaneous Notes I spoke with pt and tried scheduling him but you are booked out until the 06 of May. Is there somewhere where you'd like him to be put? Pt has been icing and elevating leg. I advised him to wrap it as well. Thank you. Put in at 4:45 p.m. on Tuesday Pt is scheduled. documented in this encounter [facility] 04-10-2025 Telephone encounter Note I spoke with pt and tried scheduling him but you are booked out until the 06 of May. Is there somewhere where you'd like him to be put? Pt has been icing and elevating leg. I advised him to wrap it as well. Thank you. [facility] 04-10-2025 Telephone encounter Note Put in at 4:45 p.m. on Tuesday [facility] 04-10-2025 Telephone encounter Note Pt is scheduled. [facility] 04-10-2025 Evaluation note Diagnosis Onset Date Resolution Greater trochanteric bursitis of right hip acute April 10, 2025 9:30am Iliotibial band syndrome, right leg acute April 10 9:30am Lymphedema of both lower extremities acute April 10, 2025 9:30am Primary osteoarthritis of right hip acute April 10, 2025 9:30am Primary osteoarthritis of right knee acute April 10, 2025 9:30am [facility] Work Phone: [phone]) 614-426405-20-2025 History of Present illness Narrative* Kali Conklin DPM - 04/09/2025 4:10 PM EDT Patient: Valentin Torre : 1955 [...] and has been using prescribed or recommended kpxa-tcb-fnleule cream with positive improvement. Patient has history of SLE and rheumatoid arthritis. Allergies: Allergies Allergen Reactions Aspirin Buf(Lgsnsx-Erzshf-Dis) Other Reaction(s): Other (See Comments), Unknown Abdominal [...] Resource Strain: Low Risk (04/14/2023) Received from [facility] Overall Financial Resource Strain (CARDIA) Difficulty of Paying Living Expenses: Not hard at all Food Insecurity: No Food Insecurity (02/25/2025) Received from [facility] Hunger Screening Within the past 12 months we worried whether our food would run out before we got money to buy more.: Never True Within the past 12 months the food we bought just didn't last and we didn't have money to get more.: Never True Transportation Needs: No Transportation Needs (04/14/2023) Received from [facility] PRAPARE - Transportation Lack of Transportation (Medical): No Lack of Transportation (Non-Medical): No Physical Activity: Inactive (05/01/2024) Received from [facility] Exercise Vital Sign Days of Exercise per Week: 0 days Minutes of Exercise per Session: 0 min Stress: No Stress Concern Present (04/14/2023) Received from [facility] [employer] [place] [employer] - Occupational Stress Questionnaire Feeling of Stress : Not at all Social Connections: Moderately Integrated (04/14/2023) Received from [facility] Social Connection and Isolation Panel [NHANES] Frequency of Communication with Friends and Family: Once a week Frequency of Social Gatherings with Friends and Family: Once a week Attends Rastafari Services: More than 4 times per year Active Member of Clubs or Organizations: Yes Attends Club or Organization Meetings: Never Marital Status: Intimate Partner Violence: Not on file Housing Stability: Low Risk (04/14/2023) Received from [facility] Housing Instability Are you worried or concerned [...] longer than right leg of a proximally zab-zhuxhgd-cjsx Greatly diminished pain on palpation right heel [...] 10 Kali Conklin DPM [id number] History of Present illness Narrative* Whit Taylor MD - 03/20/2025 10:20 AM EDT Images from the original note were [...] Iliotibial band syndrome and Right trochanteric bursitis ofright hip. He states the worst time for [...] tablets Follow schedule on MEDROL PACK package instructionsto be used as directed montelukast (Singulair) 10 [...] Take by mouth Allergies Allergen Reactions Aspirin Buf(Rhnsal-Vcfcmi-Ala) Other Reaction(s): Other (See Comments), Unknown Abdominal [...] Depression: Not at risk (02/25/2025) Received from [employer] [facility] PHQ-2 Total Score: 0 REVIEW OF [...] reflexes: Teja's absent. Ankle clonus absent. Coordination Vtjlsw-hh-rlgw, rapid alternating movements and fqvy-il-hmun normal bilaterally without dysmetria. Gait Normal casual, [...] Reynoso acting under the direction of Whit Taylor MD. The content has been reviewed and confirmed for accuracy by Whit Taylor MD documented in this [facility]04-14-2025 Telephone encounter Note* Telephone Encounter - Marian Guajardo NP - 03/04/2025 12:58 PM EDT Patient calls that tremors are worsening. He has scheduled appointment with Claudia on 03/20. I called the patient and left voicemail that he has upcoming appointment but until then increase primidone 50 mg 1/2 tab am and continue the 2 pills at bedtime. [facility] Work Phone: [phone] Miscellaneous Notes* Telephone Encounter - Marian Guajardo NP - 03/04/2025 12:58 PM EDT Patient calls that tremors are worsening. He has scheduled appointment with Claudia on 03/20. I called the patient and left voicemail that he has upcoming appointment but until then increase primidone 50 mg 1/2 tab am and continue the 2 pills at bedtime. documented in this [facility]04-07-2025 History of Present illness Narrative* Sascha Sutton, DO - 02/25/2025 1:30 PM EDT Images from the original note were not included. Subjective Patient ID: Valentin Torre is a 69 y.o. male. The patient is here today for discharge follow up from hospital. Transition of Care Med Rec completed? Yes Discharged medications: Medications have been reviewed and reconciled with the most recent facilitydischarge document. Valentin presents today for transition of [...] When it does hit it is sudden andsharp. Hurts more with movement and deep breathing. [...] Exam Vitals reviewed. Exam conducted with a office bookkeeper present (Chance Anders MS 3). Constitutional: General: He is [...] mouth in the morning. [facility] History of Present illness Narrative* Kali Conklin DPM - 02/21/2025 9:30 AM EDT Patient: Valentin Torre : 1955 PCP: Sascha Sutton MD SUBJECTIVE This is a 69 y.o. male that presents today for follow up of suspected right EDL tendinitis with su splint. Is taking nsaids as well as using walking boot and ice with positive improvement. Patient rates pain a 1/10 Patient does have limb length discrepancy and orthotics Discussion of further PT in the past. Patient also presents today for follow-up of dry skin and fissures to feet and has been using prescribed or recommended legd-qyo-svlxrqv cream with improvement. Patient has history of SLE and rheumatoid arthritis. Allergies: Allergies Allergen Reactions Aspirin Buf(Zpxsbx-Fxxzjv-Bpx) Other Reaction(s): Other (See Comments), Unknown Abdominal [...] Resource Strain: Low Risk (04/14/2023) [facility], [facility] Overall Financial Resource Strain (CARDIA) Difficulty of Paying Living Expenses: Not hard at all Food Insecurity: No Food Insecurity (01/25/2025) Received from [facility] Hunger Screening Within the past 12 months we worried whether our food would run out before we got money to buy more.: Never True Within the past 12 months the food we bought just didn't last and we didn't have money to get more.: Never True Transportation Needs: No Transportation Needs (04/14/2023) [facility], [facility] PRAPARE - Transportation Lack of Transportation (Medical): No Lack of Transportation (Non-Medical): No Physical Activity: Inactive (05/01/2024) Received from [facility] Exercise Vital Sign Days of Exercise per Week: 0 days Minutes of Exercise per Session: 0 min Stress: No Stress Concern Present (04/14/2023) Received from [employer] [place] [facility] Occupational Health - Occupational Stress Questionnaire Feeling of Stress : Not at all Social Connections: Moderately Integrated (04/14/2023) Received from [employer], [facility] Social Connection and Isolation Panel [NHANES] Frequency of Communication with Friends and Family: Once a week Frequency of Social Gatherings with Friends and Family: Once a week Attends Rastafari Services: More than 4 times per year Active Member of Clubs or Organizations: Yes Attends Club or Organization Meetings: Never Marital Status: Intimate Partner Violence: Not on file Housing Stability: Low Risk (04/14/2023) Received from [employer], [facility] Housing Instability Are you worried or concerned [...] longer than right leg of a proximally fhc-pgssgwb-rdum Greatly diminished pain on palpation right heel [...] therapy Kali Conklin DPM documented in this encounterSaint John's Saint Francis HospitalRugfzqaavp82-03-8115 Consult note Author Rita Matt [facility] Note Date/Time February 16, 2025 1:3 0pm [facility] [address] [place] [address] Cardiology Consult Note Signed Patient: Valentin Torre MR#: [id number] : 1955 Acct:[id number] Age/Sex: 69 / M Adm Date: 5 Loc: Room: [address] [place] [address] Type: ADM INOo Attending Dr: Gabi Almanzar MD Copies to: DO Rita Strong MD, [facility] Gabi Almanzar MD~ Cardiology HPI History of [...] 11 point review of system essentially unremarkable [facility] Medical History Intention tremor Greater trochanteric bursitis [...] x10E3/uL Lymph # (Auto) 1.0 (1.00-4.8) x10E3/uL [place] # (Auto) 0.9 H (0.0-0.8) x10E3/uL Eos [...] arthritis, unspecified Documented By: Rita Matt MD, FACC 03/29/2 5 1323 Signed By: <Electronically signed by MD AMA Matt> 02/16/25 3483 [facility] Work Phone: 1(898) 321-412703-29-[address] [address] Discharge Summary Signed Patient: Valentin Torre MR#: [id number] : 1955 Acct:[id number] Age/Sex: 69 / M Adm Date: 5 Loc: Room: [address] [place] [address]: Gabi Almanzar MD Copies to: [...] Pain) triamcinolone acetonide [Nasal Allergy] 55 mcg Aerosol,[place] 1 spray INTRANASAL DAILY carboxymethylcellulose sodium [Refresh [...] Continuity of Care Document Health Concerns: A [facility] screening has identified you as FRAIL or [...] Strong:Four Ways to Beat the Frailty Risk [email or web address] qy-isvrqj-jszv- fqla-pk-chtw-nkg-vpcoxdm-fgan Exam Physical Exam Vital Signs: Temp Pulse [...] Neut % (Auto) 78.4, Lymph % (Auto) 11.0,[place] % (Auto) 9.6, Eos % (Auto) 0.7, Baso % (Auto) 0.3, Nucleat RBC Rel Count 0.1, Neut # (Auto) 7.1, Lymph # (Auto) 1.0, [place] # (Auto) 0.9 H, Eos # (Auto) [...] MD 02/16/25 1453 Signed By: 02/16/25 1501 [facility]03-29-[address] [address] Cardiology Consult Note Signed Patient: Valentin Torre MR#: [id number] : 1955 Acct:[id number] Age/Sex: 69 / M Adm Date: 5 Loc: 3T Room: 3B0828-2 Type: ADM INOo Attending Dr: Gabi Almanzar MD Copies to: DO Rita Strong MD, [facility] Gabi Almanzar MD~ Cardiology HPI History of [...] 11 point review of system essentially unremarkable [facility] Medical History Intention tremor Greater trochanteric bursitis of right hip Osteoarthritis of right hip Tremor of right hand Chronic pain Arthritis of facet joint of cervical spine Arthritis of lumbosacral spine Thyroid nodule pt reports new-supposed to see Dr. Murcek Wears hearing aid in both ears History [...] x10E3/uL Lymph # (Auto) 1.0 (1.00-4.8) x10E3/uL [place] # (Auto) 0.9 H (0.0-0.8) x10E3/uL Eos [...] arthritis, unspecified Documented By: Rita Matt MD, [facility] 5 1323 Signed By: 02/16/[address] [place], [place] 3360403-28-2025 History and physical note Author Marley Dumont [facility] Note Date/Time February 15, 2025 3:4 9pm [facility] [address] [place] [address] Hospitalist H&P Signed Patient: Valentin Torre MR#: [id number] : 1955 Acct:[id number] Age/Sex: 69 / M Adm Date: 5 Loc: Room: [address] [place] [address] Type: ADM INOo Attending Dr: Marley Dumont [...] negative unless noted below or in HPI [facility] Medical History Intention tremor Greater trochanteric bursitis [...] % (Auto) 10.3 % (.) 02/15/25 10:00 [place] % (Auto) 14.0 % (.) 02/15/25 10:00 Eos % (Auto) 0.5 % (.) 02/15/25 10:00 Baso % (Auto) 0.3 % (.) 02/15/25 10:00 Nucleat RBC Rel Count 0.1 /100 WBC (0-0.5) 02/15/25 10:00 Neut # (Auto) 7.1 x10E3/uL (1.8-7.7) 02/15/25 10:00 Lymph # (Auto) 1.0 x10E3/uL (1.00-4.8) 02/15/25 10:00 [place] # (Auto) 1.3 x10E3/uL (0.0-0.8) H 02/15/25 [...] signed by Marley Dumont MD> 02/15/25 1549 [facility] Work Phone: 1([phone]) 779-539903-28-2025 [place] [address] Hospitalist H&P Signed Patient: Valentin Torre MR#: [id number] : 1955 Acct:[id number] Age/Sex: 69 / M Adm Date: 5 Loc: Room: [address] [place] [address] Type: ADM INOo Attending Dr: Marley Dumont [...] negative unless noted below or in HPI [facility] Medical History Intention tremor Greater trochanteric bursitis [...] % (Auto) 10.3 % (.) 02/15/25 10:00 [place] % (Auto) 14.0 % (.) 02/15/25 10:00 Eos % (Auto) 0.5 % (.) 02/15/25 10:00 Baso % (Auto) 0.3 % (.) 02/15/25 10:00 Nucleat RBC Rel Count 0.1 /100 WBC (0-0.5) 02/15/25 10:00 Neut # (Auto) 7.1 x10E3/uL (1.8-7.7) 02/15/25 10:00 Lymph # (Auto) 1.0 x10E3/uL (1.00-4.8) 02/15/25 10:00 [place] # (Auto) 1.3 x10E3/uL (0.0-0.8) H 02/15/25 [...] MD 02/15/25 15 32 Signed By: 02/15/25 1549 [facility]03-21-2025 Evaluation note* Diagnosis Onset Date Resolution Status Admit Date Greater trochanteric bursiti s of right hip acute February 08, 2025 9:00am Iliotibial band syndrome, ri ght leg acute February 08, 2025 9:00am Primary osteoarthritis of ri ght hip acute February 08, 2025 9:00am Dyslipidemia acute February 15, 2025 11:58am Essential hypertension acute [facility] 2024 11:58am Frequent PVCs acute February 15, 2025 11:58am Rheumatoid arthritis acute [facility] 2024 11:58am Atypical chest pain resolved February 15, 2025 11:58am Arthritis of facet joint of cervical spine acute February 21, 2025 7:52am Arthritis of lumbosacral spine acute February 21, 2025 7:52am Chronic pain acute February 21, 2 025 7:52am Osteoarthritis of right hip acute [...] knee acute April 10, 2025 9 :30am [facility] Work Phone: 1([phone]) 445-759403-20-2025 History of Present illness Narrative* Kali Conklin, JODI - 02/07/2025 10:00 AM EDT Patient: Valentin [...] and has been using prescribed or recommended pcgs-vbu-iakzqhx cream with improvement. Patient has history of SLE and rheumatoid arthritis. Allergies: Allergies Allergen Reactions Aspirin Buf(Xhukco-Csqugl-Afq) Other Reaction(s): Other (See Comments), Unknown Abdominal [...] Resource Strain: Low Risk (04/14/2023) Received from [employer], [facility] Overall Financial Resource Strain (CARDIA) Difficulty of Paying Living Expenses: Not hard at all Food Insecurity: No Food Insecurity (01/25/2025) Received from [facility] Hunger Screening Within the past 12 months we worried whether our food would run out before we got money to buy more.: Never True Within the past 12 months the food we bought just didn't last and we didn't have money to get more.: Never True Transportation Needs: No Transportation Needs (04/14/2023) Received from [facility], [facility] PRAPARE - Transportation Lack of Transportation (Medical): No Lack of Transportation (Non-Medical): No Physical Activity: Inactive (05/01/2024) Received from [employer] Exercise Vital Sign Days of Exercise per Week: 0 days Minutes of Exercise per Session: 0 min Stress: No Stress Concern Present (04/14/2023) Received from [employer] [facility], [facility] [place] of Occupational Health - Occupational Stress Questionnaire Feeling of Stress : Not at all Social Connections: Moderately Integrated (04/14/2023) Received from [employer] [facility], [facility] Social Connection and Isolation Panel [NHANES] Frequency of Communication with Friends and Family: Once a week Frequency of Social Gatherings with Friends and Family: Once a week Attends Rastafari Services: More than 4 times per year Active Member of Clubs or Organizations: Yes Attends Club or Organization Meetings: Never Marital Status: Intimate Partner Violence: Not on file Housing Stability: Low Risk (04/14/2023) Received from [facility], [facility] Housing Instability Are you worried or concerned [...] longer than right leg of a proximally fwb-qxrybvb-dnro Greatly diminished pain on palpation right heel [...] future Kali Conklin DPM documented in this encounterSaint John's Saint Francis HospitalJckskhjygf56-92-3176 History of Present illness Narrative* Kali Conklin [...] and has been using prescribed or recommended kpug-aah-ofagruf cream with improvement. Patient presents today with [...] rheumatoid arthritis. Allergies: Allergies Allergen Reactions Aspirin Buf(Axvlij-Wpuakh-Ljl) Other Reaction(s): Other (See Comments), Unknown Abdominal [...] Resource Strain: Low Risk (04/14/2023) [facility] Overall Financial Resource Strain (CARDIA) Difficulty of Paying Living Expenses: Not hard at all Food Insecurity: No Food Insecurity (01/25/2025) [facility] Hunger Screening Within the past 12 months we worried whether our food would run out before we got money to buy more.: Never True Within the past 12 months the food we bought just didn't last and we didn't have money to get more.: Never True Transportation Needs: No Transportation Needs (04/14/2023) [facility], [facility] PRAPARE - Transportation Lack of Transportation (Medical): No Lack of Transportation (Non-Medical): No Physical Activity: Inactive (05/01/2024) Received from [facility] Exercise Vital Sign Days of Exercise per Week: 0 days Minutes of Exercise per Session: 0 min Stress: No Stress Concern Present (04/14/2023) Received from [employer] [place] [facility] [employer] [facility] - Occupational Stress Questionnaire Feeling of Stress : Not at all Social Connections: Moderately Integrated (04/14/2023) Received from [employer], [facility] Social Connection and Isolation Panel [NHANES] Frequency of Communication with Friends and Family: Once a week Frequency of Social Gatherings with Friends and Family: Once a week Attends Rastafari Services: More than 4 times per year Active Member of Clubs or Organizations: Yes Attends Club or Organization Meetings: Never Marital Status: Intimate Partner Violence: Not on file Housing Stability: Low Risk (04/14/2023) Received from [employer], [facility] Housing Instability Are you worried or concerned [...] longer than right leg of a proximally tlj-glhgipu-zfiu Greatly diminished pain on palpation right heel [...] diagnosis. Kali Conklin DPM documented in this encounterSaint John's Saint Francis HospitalWtxishljlm96-27-0914 History of Present illness Narrative* Sascha G Herman, DO - 01/29/2025 2:00 PM EDT Subjective [...] helps with the pain. He saw the store merchandiser last week and was told that he [...] Recommend follow-up with ENT. [facility] History of Present illness Narrative* Sascha Sutton DO - 01/25/2025 11:30 AM EST Subjective Patient [...] but was sent to the ED at [facility] for further evaluation. Since then he reports [...] MS3 01/25/25 12:00 PM documented in this encounterUpper Valley Medical CenterTexas Instruments [id number] [facility]iology [facility] [place] [address] [place] [address] CT Scan Report Signed Patient: Valentin Torre MR#: [id number] : 1955 Acct:[id number] Age/Sex: 69 / M ADM Date: 02/22/2 5 Loc: ER Room: Type: [facility] ER Attending Dr: Copies to: Matthew Harrell [...] MRI 01/10/2024 FINDINGS: L5-S1: Mild disc disease. Sefs-gg-qppajvig neural from narrowing. Advanced facet arthropathy. Laminectomy. L4-5 Postsurgical changes L4-5 status post the decompressive laminectomy and posterior fusion and discectomy. Stable 5 mm of anterolisthesis. Rqom-db-ppmeccwv foraminal narrowing at this level. L3-4 Moderate [...] Alo Mayer M.D.01/12/2025 2:53 PM Dictation Location: [place] [address] Transcribed By: [facility] 01/12/25 5449 Dictated By: Alo Mayer MD 01/12/25 1439 Signed By: 01/12/25 9906 [facility] Work Phone: 1(932) 462-122602-22-2025 Radiology Diagnostic study [facility] Main [place] [address] [place] [address] CT Scan Report Signed Patient: Valentin Torre MR#: [id number] : 1955 Acct:[id number] Age/Sex: 69 / M ADM Date: 5 Loc: ER Room: Type: [facility] ER Attending Dr: Copies to: Matthew Harrell [...] ACUTE INTRACRANIAL ABNORMALITY. CHRONIC SMALL VESSEL CHANGES QCYN-XW-PZHECPFI PARANASAL SINUS DISEASE Impression dictated by: Alo Mayer M.D.01/12/2025 2:28 PM Dictation Location: [place] [address] Transcribed By: [facility] 01/12/251427 Dictated By: Alo Mayer MD 01/12/251425 Signed By: 01/12/25 142 [facility] Work Phone: 1(332) 653-930602-22-2025 Evaluation note* Diagnosis Onset Date Resolution Status Admit Date Fall acute January 12, 2025 10:56am Greater trochanteric bursiti s of right hip acute February 08, 2025 9:00am Iliotibial band syndrome, right leg acute February 08, 2025 9:00am Primary osteoarthritis of right hip acute February 08, 2025 9:00am Dyslipidemia acute February 15, 2025 11:58am Essential hypertension acute [facility] 2024 11:58am Frequent PVCs acute February 15, 2025 11:58am Rheumatoid arthritis acute [facility] 2024 11:58am Atypical chest pain resolved February 15, 2025 11:58am Arthritis of facet joint of cervical spine acute February 21, 2025 7:52am Arthritis of lumbosacral spine acute February 21, 2025 7:52am Chronic pain acute February 21 7:52am Osteoarthritis of right hip acute February 21, 2025 7:52am [facility] Work Phone: 1(443) 498-212702-22-2025 Evaluation note* Diagnosis Onset Date Resolution Status Admit Date Fall acute January 12, 2025 10:56am Greater trochanteric bursiti s of right hip acute February 08, 2025 9:00am Iliotibial band syndrome, right leg acute February 08, 2025 9:00am Primary osteoarthritis of right hip acute February 08, 2025 9:00am Dyslipidemia acute February 15, 2025 11:58am Essential hypertension acute [facility] 2024 11:58am Frequent PVCs acute February 15, 2025 11:58am Rheumatoid arthritis acute [facility] 2024 11:58am Atypical chest pain resolved February 15, 2025 11:58am Arthritis of facet joint of cervical spine acute February 21, 2025 7:52am Arthritis of lumbosacral spine acute February 21, 2025 7:52am Chronic pain acute February 21 7:52am Osteoarthritis of right hip acute February 21, 2025 7:52am Arthritis of facet joint of cervical spine acute March 27, 2025 7: 47am Arthritis of lumbosacral spine acute March 27, 2025 7:47am Chronic pain acute March 27 7:47am Osteoarthritis of right hip acute March 27, 2025 7:47am [facility] Work Phone: [phone]) 652-811902-20-2025 History of Present illness Narrative* Kali Conklin, JODI - 01/10/2025 1:10 PM EST Patient: Valentin [...] is very painful with ambulation has tried ydav-lpv-woqgdme creamswith negative improvement Patient presents today with a CC of elongated, thick nails. Pt states nails have been elongated and thick for many years and cause pain with ambulation in shoegear. Pt has tried previous treatment with minimal relief. Pt presents today for nail care and treatment. Allergies: Allergies Allergen Reactions Aspirin Buf(Mqpbbf-Lfgkob-Etj) Other Reaction(s): Other (See Comments), Unknown Abdominal [...] Resource Strain: Low Risk (04/14/2023) [facility] Overall Financial Resource Strain (CARDIA) Difficulty of Paying Living Expenses: Not hard at all Food Insecurity: No Food Insecurity (12/17/2024) Received from [employer] Hunger Screening Within the past 12 months we worried whether our food would run out before we got money to buy more.: Never True Within the past 12 months the food we bought just didn't last and we didn't have money to get more.: Never True Transportation Needs: No Transportation Needs (04/14/2023) [facility] - Transportation Lack of Transportation (Medical): No Lack of Transportation (Non-Medical): No Physical Activity: Inactive (05/01/2024) Received from [employer] Exercise Vital Sign Days of Exercise per Week: 0 days Minutes of Exercise per Session: 0 min Stress: No Stress Concern Present (04/14/2023) [facility], [facility] [employer] [place] [facility] Occupational Health - Occupational Stress Questionnaire Feeling of Stress : Not at all Social Connections: Moderately Integrated (04/14/2023) [facility], [facility] Social Connection and Isolation Panel [NHANES] Frequency of Communication with Friends and Family: Once a week Frequency of Social Gatherings with Friends and Family: Once a week Attends Rastafari Services: More than 4 times per year Active Member of Clubs or Organizations: Yes Attends Club or Organization Meetings: Never Marital Status: Intimate Partner Violence: Not on file Housing Stability: Low Risk (04/14/2023) [facility] Housing Instability Are you worried or [...] longer than right leg of a proximally fgk-nbskspp-odnj Positive palpation right heel fissure ASSESSMENT 1. [...] or drainage to feet. Patient to consider pjxy-unh-enozlif treatments for medication or use of urea cream and prescription today was offered for Lac-Hydrin cream. Prescription today for urea 40 Kali Conklin DPM documented in this encounterSaint John's Saint Francis HospitalLevilkzysb96-38-1673 Telephone encounter Note* Telephone Encounter - Farida Garay - 01/03/2025 9:47 AM EST Pt will went up to 1 pill of Primidone per. Dr. Claudia escobar has helped and he will need a new Rx called to [facility] in [place]. [facility] Work Phone: 1(272) 776-791702-13-2025 Miscellaneous Notes* Telephone Encounter - Farida Garay - 01/03/2025 9:47 AM EST Pt will went up to 1 pill of Primidone per. Dr. Claudia escobar has helped and he will need a new Rx called to [facility] in [place]. documented in this encounterSaint John's Saint Francis HospitalXsjaoqcslg91-85-9716 History of Present illness Narrative* Whit Taylor [...] Take by mouth Allergies Allergen Reactions Aspirin Buf(Xjizky-Xclhnm-Yne) Other Reaction(s): Other (See Comments), Unknown Abdominal [...] Depression: Not at risk (12/17/2024) Received from [employer] PHQ-2 Total Score: 0 REVIEW OF SYMPTOMS: [...] in all four extremities, including at least pulmonary disease specialist, finger abductors, biceps, triceps, deltoid, toe flexors [...] ROM, and improve function. documented in this encounterSaint John's Saint Francis HospitalHogpcnrjqw24-28-1851 History of Present illness Narrative* Carlos Melanie Meek, - 12/17/2024 2:30 PM EST Subjective Patient ID: HPI Patient presents today to reinspect a right thyroid nodule, previously 1.2 cm [place] II. He is doing fine Review of [...] ultrasound at that time documented in this encounterSaint John's Saint Francis HospitalYggoetgcek98-18-3988 History of Present illness Narrative* Sascha Sutton [...] Objective Physical Exam Exam conducted with a office bookkeeper present (Junior SuHarrietKush MS III). Constitutional: General: He is not [...] with neurologist as directed 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[facility]) Follow up with staff midwife as directed Antiphospholipid syndrome ([facility]) Follow up with stripper latex as directed Class 1 obesity due to [...] needs it for stability. documented in this encounterPrem[facility]01-06-2025 Evaluation note* Diagnosis Onset Date Resolution Status [...] ght hip acute February 08, 2025 9:00am [facility] Work Phone: 1([phone]) 893-665601-06-2025 Evaluation note* Diagnosis Onset Date Resolution Status [...] February 15, 2025 11:58am Essential hypertension acute [facility] 2024 11:58am Frequent PVCs acute February 15, 2025 11:58am Rheumatoid arthritis acute [facility] 2024 11:58am [facility] Work Phone: 1([phone] 153-357301-06-2025 Evaluation note* Diagnosis Onset Date Resolution Status [...] February 15, 2025 11:58am Essential hypertension acute [facility] 2024 11:58am Frequent PVCs acute February 15, 2025 11:58am Rheumatoid arthritis acute [facility] 2024 11:58am Arthritis of facet joint of cervical spine acute February 21, 2025 7:52am Arthritis of lumbosacral spine acute February 21, 2025 7:52am Chronic pain acute February 21, 7:52am Osteoarthritis of right hip acute February 21, 2025 7:52am [facility] Work Phone: 1(314) 534-851012-20-2024 Evaluation note* Diagnosis Onset Date Resolution Status [...] 9:44am Fall acute January 12, 2025 10:56am [facility] Work Phone: 1([phone] 384-292012-12-2024 History of Present illness Narrative* Kali Conklin, JODI - 11/01/2024 1:00 PM EST Patient: Valentin [...] shoe gear Allergies: Allergies Allergen Reactions Aspirin Buf(Oqkhja-Cnanmn-Ist) Other Reaction(s): Other (See Comments), Unknown Abdominal [...] Resource Strain: Low Risk (04/14/2023) Received from [facility], [facility] Overall Financial Resource Strain (CARDIA) Difficulty of Paying Living Expenses: Not hard at all Food Insecurity: No Food Insecurity (09/24/2024) Received from [facility] Hunger Screening Within the past 12 months we worried whether our food would run out before we got money to buy more.: Never True Within the past 12 months the food we bought just didn't last and we didn't have money to get more.: Never True Transportation Needs: No Transportation Needs (04/14/2023) Received from [facility], [facility] PRAPARE - Transportation Lack of Transportation (Medical): No Lack of Transportation (Non-Medical): No Physical Activity: Inactive (05/01/2024) Received from [facility] Exercise Vital Sign Days of Exercise per Week: 0 days Minutes of Exercise per Session: 0 min Stress: No Stress Concern Present (04/14/2023) Received from [facility], [facility] [place] of Occupational Health - Occupational Stress Questionnaire Feeling of Stress : Not at all Social Connections: Moderately Integrated (04/14/2023) Received from [facility], [facility] Social Connection and Isolation Panel [NHANES] Frequency of Communication with Friends and Family: Once a week Frequency of Social Gatherings with Friends and Family: Once a week Attends Rastafari Services: More than 4 times per year Active Member of Clubs or Organizations: Yes Attends Club or Organization Meetings: Never Marital Status: Intimate Partner Violence: Not on file Housing Stability: Low Risk (04/14/2023) Received from [facility], [facility] Housing Instability Are you worried or concerned [...] . 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 Denies any other concerns. CURRENT [...] MG tablet Oral Allergies Allergen Reactions Aspirin Buf(Gaotxv-Juwqgl-Waj) Other Reaction(s): Other (See Comments), Unknown Abdominal [...] Depression: Not at risk (09/24/2024) Received from [facility] PHQ-2 Total Score: 0 REVIEW OF SYMPTOMS: [...] reflexes: Teja's absent. Ankle clonus absent. Coordination Ubgtbi-rq-xile, rapid alternating movements and vrjh-ic-vrml normal bilaterally without dysmetria. Gait Normal casual, [...] Follow up 8 weeks. documented in this encounterSaint John's Saint Francis HospitalCzozprxwek26-65-1210 History of Present illness Narrative* Sascha Teagan Herman, DO - 10/09/2024 2:00 PM EST Subjective Patient ID: Valentin Torre is a 69 y.o. male. Jeffry Torre is a 69 y.o. male presenting today with cough and voice loss. He says that his cough started around 32. He went to urgent care one week [...] given predniSONE (DELTASONE) 20 mg tablet and szukglfwjkh-viroqnblk-ueowbzzd (TRELEGY ELLIPTA) 100-62.5-25 mcg blister with device. [...] Sinus: Frontal sinus tenderness present. Mouth/Throat: Lips: [place]. Mouth: Mucous membranes are moist. Pharynx: Posterior [...] this for 10 days. documented in [facility]Prem[facility] History of Present illness Narrative* Sascha Sutton [...] Exam Vitals reviewed. Exam conducted with a office bookkeeper present (Ramiro Barros MS III). Constitutional: General: [...] Sinus: No maxillary sinus tenderness. Mouth/Throat: Lips: [place]. Mouth: Mucous membranes are moist. Pharynx: Oropharynx [...] times a day for 3 days. - fddxkltueor-idyribxdx-kbwwlqul (TRELEGY ELLIPTA) 100-62.5-25 mcg blister with device; Inhale 1 puff once daily for 14 days. documented in this encounterUpper Valley Medical CenterOctane Lending10-30-2024 Evaluation note* Diagnosis Onset Date Resolution Status [...] right hip acute November 26, 2024 9:44am [facility] Work Phone: [phone]) 308-188810-14-2024 Hospital Discharge instructions Patient Education 09/03/2024 10:59:52 [...] Follow these instructions at home: Medicines Take jbir-soi-vxorupk and prescription medicines only as told by [...] to keep your pee pale yellow. ?Take daxy-tel-zbuseuf or prescription medicines. ?Eat foods that are [...] provider. Document Revised: 07/08/2023 Document Reviewed: 07/08/2023 [employer] Patient Education 2023 [employer]. 09/03/2024 10:59:51 Laser Therapy for Kidney Stones [...] including vitamins, herbs, eye drops, creams, and qnzv-dkk-apuvwpc medicines. Any problems you or family members [...] unless your provider tells you to. ?Taking mxih-sbw-szsjbcd medicines, vitamins, herbs, and supplements. Tests You [...] provider. Document Revised: 07/08/2023 Document Reviewed: 07/08/2023 [employer] Patient Education 2023 [employer]. Follow Up Care 09/19/2023 10:33:39 With:FLAVIO ONEAL, Zac De Oliveira, URL Address: [facility] [address], [place] [address] [phone] When: Unknown [facility] [place] 10-14-2024 NotePatient Education Nephrology Laser Therapy for [...] these instructions at home: Medicines ? Take vekt-ktq-islelnr and prescription medicines only as told by [...] keep your pee pale yellow. ? Take hbeu-fed-vyybxtw or prescription medicines. ? Eat foods that [...] provider. Document Revised: 07/08/2023 Document Reviewed: 07/08/2023 [employer] Patient Education ? 2023 [employer]. Laser Therapy for Kidney Stones Laser therapy [...] including vitamins, herbs, eye drops, creams, and uqdp-row-jrdbzwz medicines. ? Any problems you or family [...] foods. Do not e (more content not included)...[facility]09-27-[facility] History of Present illness Narrative* Kali Conklin, DPM - 08/17/2024 2:40 PM EDT Patient: Valentin Ortizde : 1955 PCP: Sascha Sutton MD SUBJECTIVE [...] shoe gear Allergies: Allergies Allergen Reactions Aspirin Buf(Naspxq-Rcngkq-Ejl) Other Reaction(s): Other (See Comments), Unknown Abdominal [...] Resource Strain: Low Risk (04/14/2023) [facility], [facility] Overall Financial Resource Strain (CARDIA) Difficulty of Paying Living Expenses: Not hard at all Food Insecurity: No Food Insecurity (06/14/2024) Received from [facility] Hunger Screening Within the past 12 months we worried whether our food would run out before we got money to buy more.: Never True Within the past 12 months the food we bought just didn't last and we didn't have money to get more.: Never True Transportation Needs: No Transportation Needs (04/14/2023) [facility], [facility] - Transportation Lack of Transportation (Medical): No Lack of Transportation (Non-Medical): No Physical Activity: Inactive (05/01/2024) Received from [facility] Exercise Vital Sign Days of Exercise per Week: 0 days Minutes of Exercise per Session: 0 min Stress: No Stress Concern Present (04/14/2023) Received from [facility], [employer] [facility] [place] of Occupational Health - Occupational Stress Questionnaire Feeling of Stress : Not at all Social Connections: Moderately Integrated (04/14/2023) [facility], [facility] Social Connection and Isolation Panel [NHANES] Frequency of Communication with Friends and Family: Once a week Frequency of Social Gatherings with Friends and Family: Once a week Attends Rastafari Services: More than 4 times per year Active Member of Clubs or Organizations: Yes Attends Club or Organization Meetings: Never Marital Status: Intimate Partner Violence: Not on file Housing Stability: Low Risk (04/14/2023) [facility], [facility] Housing Instability Are you worried or [...] Podiatry Kali Conklin DPM documented in this encounterSaint John's Saint Francis HospitalIzsgynrvto74-40-3248 Evaluation note* Diagnosis Onset Date Resolution Status [...] Shortness of breath acute Octob 2023 9:04am [facility] Work Phone: 1(422) 613-542007-26-2024 Miscellaneous Notes* Telephone Encounter - Karin Camacho [...] note stated he understood documented in this encounterPrem[facility]07-[facility]24 Telephone encounter Note* Telephone Encounter - Karin [...] Recheck in 6 months. Continue current regimen [facility]07-26-2024 Telephone encounter Note* Telephone Encounter - Ally Phillips CMA - 06/15/2024 10:34 AM EDT Pt called read your note stated he understood [facility]07-25-2024 History of Present illness Narrative* Sascha Sutton [...] Objective Physical Exam Exam conducted with a office bookkeeper present (Junior Collins MS III). Constitutional: General: [...] and encouraged to continue. documented in this encounterPremier Health [facility] Center06-25-2024 Hospital Discharge instructions Patient Education 05/15/2024 13:41:01 [...] urethra. Follow these instructions at home: Take llqh-kod-mgidhyb and prescription medicines only as told by [...] provider. Document Revised: 05/26/2022 Document Reviewed: 05/26/2022 [employer] Patient Education 2022 [employer] Follow Up Care 03/20/2024 12:59:39 With:LEAH KHAN PA-C, URL Address: [address] [place] [address] When: Unknown [facility] 06-11-2024 History of Present illness Narrative* Sascha [...] you use? (check all that apply): (!) Cane, Walker Hearing Assessment Do you strain or [...] Do you have a durable power of progress worker?: Yes Cognitive Screening Do you have trouble [...] 1 year (around 05/01/2025). documented in this encounterPrem[facility]04-30-2024 Hospital Discharge instructions Patient Education 03/20/2024 13:11:31 [...] (electrical nerve stimulation). ?For women, using a emergency medical dispatcher to prevent urine leaks. This is a [...] right after experiencing incontinence. General instructions Take vkms-kno-gbvhful and prescription medicines only as told by [...] important. Where to find more information [place] of Diabetes and Digestive and Kidney Diseases: www.niddk.nih.gov [place] [employer]: www.urologyhealth.org Contact a health care [...] provider. Document Revised: 06/12/2021 Document Reviewed: 06/12/2021 [employer] Patient Education 2022 [employer] 03/20/2024 13:11:28 Cancer Screening for Men [...] include BRCA1 or BRCA2 gene mutations or Ebar syndrome. You have symptoms of prostate cancer, [...] if anything looks unusual. Men with a pmdnav-gqae-fwpsyh risk for skin cancer may want to see a dinkey skinner (manager project management) for an annual body check. What are the benefits of screening? Cancer screening is done to look for cancer in the very early stages, before it spreads and becomesharder to treat and before you would start to notice symptoms. Finding cancer early improves the chances of successful treatment. It may save your life. Where to find more information [place] Cancer Society: www.cancer.org Centers for Disease Control and Prevention: www.cdc.gov National Cancer [place]: www.cancer.gov Contact a health care provider if: [...] provider. Document Revised: 04/05/2022 Document Reviewed: 10/03/2020 [employer] Patient Education 2022 [employer]. 03/20/2024 13:11:20 Urinary Incontinence Urinary Incontinence Urinary [...] (electrical nerve stimulation). ?For women, using a emergency medical dispatcher to prevent urine leaks. This is a [...] right after experiencing incontinence. General instructions Take ffpe-ewu-qkxixag and prescription medicines only as told by [...] important. Where to find more information [place] of Diabetes and Digestive and Kidney Diseases: www.niddk.nih.gov [place] [employer] Association: www.urologyhealth.org Contact a health care [...] provider. Document Revised: 06/12/2021 Document Reviewed: 06/12/2021 [employer] Patient Education 2022 [employer]. 03/20/2024 13:11:17 Kidney Stones, Ykwd-co-Digs Kidney Stones Kidney stones are rock-like masses [...] Follow these instructions at home: Medicines Take hjeh-bic-wifrcsy and prescription medicines only as told by [...] provider. Document Revised: 07/12/2022 Document Reviewed: 07/12/2022 [employer] Patient Education 2022 [employer]. Follow Up Care 03/16/2024 08:31:59 With:FRANCIS Jimenez APRN, NEYMAR Gambino, URL Address: When: Unknown Comments:8 wk w/ PVR [facility] 03-21-2024 Evaluation note* Author Мария [facility] Authored February 09, 2024 4:3 4pm [...] follow-up for surgical consult with Dr. Khalil. [facility] Work Phone: 1([phone]) 875-994102-28-2024 Hospital Discharge instructions Patient Education 01/18/2024 09:34:25 [...] Follow these instructions at home: Medicines Take exub-ekk-ifqcpsl and prescription medicines only as told by [...] provider. Document Revised: 10/04/2022 Document Reviewed: 07/12/2022 [employer] Patient Education 2022 [employer]. 01/18/2024 09:34:24 Lithotripsy Lithotripsy Lithotripsy is a [...] including vitamins, herbs, eye drops, creams, and yvyh-zse-rjtvcwc medicines. Any problems you or family members [...] provider tells you to take them. Taking umlz-jtb-ilolxes medicines, vitamins, herbs, and supplements. Tests You [...] provider. Document Revised: 10/04/2022 Document Reviewed: 07/12/2022 [employer] Patient Education 2022 [employer]. Follow Up Care 01/03/2024 14:10:04 With:FLAVIO ONEAL, Zac De Oliveira, URL Address: [facility] [address] , [place] [address]- When: Unknown [facility] 02-09-2024 Evaluation note* Encounter Date Diagnosis [...] issue: - Obtain release of information from [facility] for physical therapy notes - Schedule bilateral upper extremity EMG - Follow up in six weeks or after EMG completion Dec, Other Note: Patient h as a history of lupus, previous surgeries, and steroid injections in the knees. [email or web address] Other 02-07-2024 History of Present illness Narrative* Bharath Santiago Ant, JODI - 12/28/2023 2:00 PM EST Patient [...] X-rays 3 views taken left foot at [facility] reveal fracture of the head of the [...] cancel that appointment. documented in this encounterSaint John's Saint Francis HospitalMyvuxuetdq96-47-0566 History of Present illness Narrative* Sascha Sutton, [...] Objective Physical Exam Exam conducted with a office bookkeeper present (Junior Collins MS III). Constitutional: Appearance: [...] views; Future - [facility] [place], [place]; Future Check x-ray of lumbar spine. [...] pain. Monitor portion sizes. 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[facility]) Follow up with staff midwife as directed Antiphospholipid syndrome ([facility]) Follow-up with specialist as directed. Cubital tunnel syndrome on right Can try an elbow pad to see if that helps. Consider ortho consult. Paresthesias Intermittent paresthesias on the left side of his neck. Possibly coming from cervical disc disease.Previous cervical CT scan reviewed and did show moderate degenerative disc disease with encroachment of the neural foramina. documented in this encounterPremier Health [facility]10-30-2023 Hospital Discharge instructions Patient Education [...] include: ?8 oz (237 mL) of milk, hydurnk-rovedyuqbvou-docwq milk, and calcium- fortifiedfruit juice. Calcium-fortified means [...] ?Spinach (cooked), rhubarb, beets, sweet potatoes, and [place] chard. ?Peanuts. ?Potato chips, swedish fries, and baked potatoes with skin on. ?Nuts and nut products. ?Chocolate. If you regularly take a diuretic medicine, make sure to eat at least 1 or 2 servings of fruits or vegetables that are high in potassium each day. These include: ?Avocado. ?Banana. ?[place], prune, carrot, or tomato juice. ?Baked potato. [...] magnesium, fish oil, or vitamin B6. Take kjud-jwf-syyqcmq and prescription medicines only as told by [...] Casseroles. Pizza. Lasagna. Frozen meals. Potato chips. Chinese fries. The items listed above may not [...] provider. Document Revised: 07/19/2022 Document Reviewed: 07/19/2022 [employer] Patient Education 2022 [employer]. Follow Up Care 08/08/2023 12:11:26 With:Zac MUNIZ MD, URL Address: [facility] [address] [place] [address]- [phone] When: Unknown [facility] 07-05-2023 Hospital Discharge instructions Follow Up Care 05/25/2023 15:06:06 With:Zac MUNIZ MD, URL Address: [facility] [address] [place] [address]- [phone] When: Unknown [facility] 05-15-2023 Procedure [facility]05-15-2023 Hospital Discharge instructions Additional Instructions DISCHARGE INSTRUCTIONS FOR CARDIAC ECHO TECHNICIAN PHONE NUMBER OF YOUR PHYSICIAN: [phone] PROCEDURE: Heart Cath The following instructions have [...] cold, numb, blue or white, call the stripper latex immediately. 4. ACTIVITY: You are advised to [...] bottle, follow the instructions on the bottle. [facility] is not responsible for incorrect prescription information provided by the patient during their visit. Do not stop your medications without consulting your health care provider. Please take the list with you to your next doctor's appointment.[facility] Work Phone: 1(685) 991-300304-30-2023 Chief complaint Narrative - Reported* VALENTIN TORRE is being seen for a consultation for chest pain. * 67-year-old gentleman seen in cardiology consultation at the request of Dr. Sutton following an episode of severe chest discomfort with left and right neck radiation that occurred at [facility] this past Tuesday with subsequent stress imaging performed after he was admitted at [facility] that was reportedly unremarkable. Patient has since [...] with a heart catheterization sometime next week [facility] [address] DO Work Phone: 1(560) 337-494905-20-2022 NotePROCEDURE: XR SHOULDER RT 2V or > HISTORY: Unspecified fall COMPARISON: None. FINDINGS: BONES:Narrowing of the acromioclavicular joint without significant undersurface osteophytes. Narrowing of the glenohumeral joint without fracture or dislocation. SOFT TISSUES:No visible soft tissue swelling. EFFUSION:None visible. OTHER: Negative. IMPRESSION: 1. No acute bone abnormality. 2. Mild-moderate degenerative changes. Electronically authenticated by: PRIMO GALE Date: 2022-04-09 17:07[facility]05-20-2022 NotePROCEDURE: XR ELBOW RT MIN 3 VIEWS HISTORY: Unspecified fall COMPARISON: None. FINDINGS: BONES:Mild-moderate degenerative changes. No fracture, dislocation, bone lesion. SOFT TISSUES:No visible soft tissue swelling. EFFUSION:None visible. OTHER: Negative. IMPRESSION: 1. No acute bone abnormality of the right elbow. Electronically authenticated by: PRIMO GALE Date: 2022-04-09 16:53[facility] CenterDischar summary Author Gabi Almanzar [facility] Note Date/Time February 16, 2025 3:0 1pm [facility] [address] [place] [address] Discharge Summary Signed Patient: Valentin Torre MR#: [id number] : 1955 Acct:[id number] Age/Sex: 69 / M Adm Date: 5 Loc: Room: [address] [place] [address]: Gabi Almanzar MD Copies to: [...] Pain) triamcinolone acetonide [Nasal Allergy] 55 mcg Aerosol,[place] 1 spray INTRANASAL DAILY carboxymethylcellulose sodium [Refresh [...] Continuity of Care Document Health Concerns: A [facility] screening has identified you as FRAIL or [...] Ways to Beat the Frailty Risk [email or web address]-[email or web address]/mowh-qzljbp-bvkk- dksm-qy-eltw-mwl-mqbrdkl-ytzh Exam Physical Exam Vital Signs: Temp Pulse [...] % (Auto) 78.4, Lymph % (Auto) 11.0, [place] % (Auto) 9.6, Eos % (Auto) 0.7, Baso % (Auto) 0.3, Nucleat RBC Rel Count 0.1, Neut # (Auto) 7.1, Lymph # (Auto) 1.0, [place] # (Auto) 0.9 H, Eos # (Auto) [...] <Electronically signed by Gabi Almanzar MD> 02/16/25 1501 [facility] Work Phone: Evaluation + Plan note Future Appointments Appointment Date:08/08/2023 11:45:00 AM Scheduled Provider:Zac MUNIZ MD Location:[facility] Appointment Type:URO Office Visit [facility] evaluation + Plan note Future Appointments Appointment Date:09/19/2023 09:30:00 AM Scheduled Provider:Zac MUNIZ MD Location:[facility] Appointment Type:URO Office Visit [facility] evaluation + Plan note Future Appointments Appointment Date:03/23/2024 08:15:00 AM Scheduled Provider:Zac MUNIZ MD Location:[facility] Appointment Type:URO Office Visit Diagnostic Tests Pending * Electrolyte Panel 09/19/23 [facility] evaluation + Plan note Future Appointments Appointment Date:03/23/2024 08:15:00 AM Scheduled Provider:Zac MUNIZ MD Location:[facility] Appointment Type:URO Office Visit [facility] Evaluation + Plan note Future Appointments Appointment Date:03/23/2024 08:15:00 AM Scheduled Provider:Zac MUNIZ MD Location:[facility] Appointment Type:URO Office Visit Diagnostic Tests Pending * Calculi Analysis [facility] Future Appointments Appointment Date:05/15/2024 09:30:00 AM Scheduled Provider:FRANCIS Jimenez APRN, [place] [facility] Location:[facility] Appointment Type:URO Office Visit Appointment Date:09/03/2024 09:45:00 AM Scheduled Provider:Zac MUNIZ MD Location:[facility] Appointment Type:URO Office Visit [facility] evaluation + Plan note Future Appointments Appointment Date:09/03/2024 09:45:00 AM Scheduled Provider:Zac MUNIZ MD Location:[facility] Appointment Type:URO Office Visit [facility] evaluation + Plan note Future Appointments Appointment Date:06/12/2025 07:30:00 AM Scheduled Provider:Zac MUNIZ MD Location:[facility] Appointment Type:URO Procedure 15 min [facility] evaluation + Plan note Future Appointments Appointment Date:07/01/2025 08:45:00 AM Scheduled Provider: Location:[facility] [place] Appointment Type:URO Nurse Visit Appointment Date:07/19/2025 08:00:00 AM Scheduled Provider:Zac MUNIZ MD Location[facility] [place] Appointment Type:URO Office Visit [facility] Mg Evaluation noteNo assessment information available [facility] Work Phone: Evaluation note* Diagnosis Pronation deformity [...] pain acute [facility] Work Phone: evaluation note* Diagnosis Onset Date [...] pain acute [facility] Work Phone: Evaluation note* Diagnosis Onset Date [...] pain acute [facility] Work Phone: Evaluation note* Diagnosis Onset Date [...] of lumbosacral spine acute Chronic pain acute [facility] Work Phone: Evaluation note* Diagnosis [...] pain acute [facility] Work Phone: Evaluation note* Diagnosis Onset Date [...] pain acute [facility] Work Phone: Evaluation note* Diagnosis Onset Date [...] pain acute [facility] Work Phone: Evaluation note* Diagnosis Onset Date [...] pain acute Osteoarthritis of right hip acute [facility] Work Phone: Evaluation note* Diagnosis Onset Date [...] pain acute Osteoarthritis of right hip acute [facility] Work Phone: Evaluation note* Diagnosis Onset Date [...] acute Primary osteoarthritis of right hip acute [facility] Work Phone: Evaluation note* Diagnosis Onset Date [...] acute Cough acute Shortness of breath acute [facility] Work Phone: Evaluation note* Diagnosis Intention tremor- Primary Essential and other specified forms of tremor [facility] Diagnosis Pain due to onychomycosis of toenails of both feet- Primary Exostosis of both feet documented in this encounter [facility]* Diagnosis Exostosis of both feet- Primary Onychomycosis Dermatophytosis of nail Toe pain, bilateral documented in this encounter [facility] HealthcareEvaluation note* Diagnosis Essential hypertension- Primary Unspecified essential hypertension Hyperlipidemia, unspecified hyperlipidemia type Encounter for screening for malignant neoplasm of prostate [facility] this encounter [facility] Diagnosis 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 Exostosis of both feet Pain due to onychomycosis of toenails of both feet documented in this encounter [facility] HealthcareEvaluation note* Diagnosis Thyroid nodule (CMS/HCC)- Primary Nontoxic uninodular goiter documented in this encounter [facility] HealthcareEvaluation note* Diagnosis Essential hypertension- Primary Unspecified essential hypertension Hyperlipidemia, unspecified hyperlipidemia type Intention tremor Essential and other specified forms of tremor 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CMS-HCC) Unspecified diffuse connective tissue disease Antiphospholipid syndrome (CMS-HCC) Primary hypercoagulable state Class 1 obesity due to excess calories with serious comorbidity and body mass index (BMI) of 33.0 to 33.9 in adult documented in this encounter [facility]* Diagnosis Intention tremor- Primary Essential and other specified forms of tremor Piriformis syndrome of right side documented in this encounter [facility] HealthcareEvaluation note* Diagnosis Intention tremor Essential and other specified forms of tremor Pain due to onychomycosis of toenails of both feet- Primary 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 Exostosis of both feet documented in this encounter [facility]Evaluation note* Diagnosis Essential hypertension- Primary Unspecified [...] skin sensation documented in this encounter [facility]* Diagnosis Medicare annual wellness visit, subsequent- Primary Screening for depression documented in this encounter [facility]* Diagnosis Essential hypertension- Primary Unspecified essential hypertension Class 1 obesity due to excess calories with serious comorbidity and body mass index (BMI) of 33.0 to 33.9 in adult documented in this encounter [facility]* Diagnosis Upper respiratory tract infection, unspecified type- Primary documented in this encounter [facility]* Diagnosis Subacute frontal sinusitis- Primary Hoarseness Dysphonia documented in this encounter [facility]* Diagnosis Skin fissure- Primary Other specified disorder of skin Pain due to onychomycosis of toenails of both feet 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 Exostosis of both feet documented in this encounter [facility]* Diagnosis 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 Skin fissure Other specified disorder of skin documented in this encounter [facility]Evaluation note* Diagnosis Abrasion of anterior right lower leg, subsequent encounter- Primary Cellulitis of right lower extremity Contusion of right lower leg, subsequent encounter documented in this encounter [facility]* Diagnosis Right leg weakness- Primary Muscle weakness (generalized) Fall, initial encounter Lumbosacral stenosis with neurogenic claudication Perforation of right tympanic membrane documented in this encounter [facility]* Diagnosis Tenosynovitis of right lower leg- Primary 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 Xerosis cutis Other specified disease of sebaceous glands Su splint, right, initial encounter Contracture of right ankle documented in this encounter [facility]Evaluation note* Diagnosis Xerosis cutis- Primary Other specified disease of sebaceous glands Tenosynovitis of right lower leg Su splint, right, initial encounter Contracture of right ankle documented in this encounter [facility]* Diagnosis Tenosynovitis of right lower leg- Primary Su splint, right, initial encounter 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 Contracture of right ankle Xerosis cutis Other specified disease of sebaceous glands documented in this encounter [facility]Evaluation note* Diagnosis Other chest pain- Primary Thoracic region somatic dysfunction Nonallopathic lesion of thoracic region, not elsewhere classified Essential hypertension Unspecified essential hypertension documented in this encounter [facility]* Diagnosis Piriformis syndrome of right side- Primary Intention tremor Essential and other specified forms of tremor documented in this encounter [facility] note* Diagnosis Tenosynovitis of right lower leg- Primary Su splint, right, initial encounter 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 Contracture of right ankle Xerosis cutis Other specified disease of sebaceous glands Pain due to onychomycosis of toenails of both feet documented in this encounter [facility]Evaluation note* Diagnosis Lumbar radiculopathy- Primary Thoracic or lumbosacral neuritis or radiculitis, unspecified Pain of right lower leg documented in this encounter [facility]* Diagnosis Medicare annual wellness visit, subsequent- Primary Screening for depression documented in this encounter [facility]* Diagnosis Intention tremor- Primary Essential and other specified forms of tremor Polyneuropathy Unspecified hereditary and idiopathic peripheral neuropathy documented in this encounter [facility]Evaluation note* Diagnosis Moderate persistent asthma, unspecified whether complicated- Primary Class 2 severe obesity due to excess calories with serious comorbidity and body mass index (BMI) of 35.0 to 35.9 in adult ([facility]) documented in this encounter [facility]* Diagnosis Tenosynovitis of right lower leg documented in this encounter [facility] HealthcareEvaluation note* Diagnosis Hospital discharge follow-up- Primary Other follow-up examination Syncope, unspecified syncope type documented in this encounter [facility]* Diagnosis Preop cardiovascular exam Pre-operative cardiovascular examination Syncope, unspecified syncope type Mixed hyperlipidemia Essential (primary) hypertension Unspecified essential hypertension PVC (premature ventricular contraction) Other premature beats Systemic lupus erythematosus, unspecified SLE type, unspecified organ involvement status (Multi) BMI 34.0-34.9,adult Former smoker Personal history of tobacco use, presenting hazards to health documented in this encounter [facility] Work Phone: Evaluation note* Diagnosis Tenosynovitis of right lower leg- Primary Pain due to onychomycosis of toenails of both feet Xerosis cutis Other specified disease of sebaceous glands Su splint, right, initial encounter 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 He denies medication side effects. -[facility] [employer] DO Work Phone: History of Present illness Narrative* Kali Conklin, JODI - 12/06/2024 4:30 PM EST Patient: Valentin Torre : 1955 PCP: Sascha Sutton MD SUBJECTIVE This is a 69 y.o. male that presents today with a CC of aches and pains above feet and arch regionsand had orthotics in the past with some improvement but are old and unable to wear at this time. [facility] [...] and treatment. Allergies: Allergies Allergen Reactions Aspirin Buf(Uieolw-Maorrm-Lrr) Other Reaction(s): Other (See Comments), Unknown Abdominal [...] Resource Strain: Low Risk (04/14/2023) Received from [facility] Overall Financial Resource Strain (CARDIA) Difficulty of Paying Living Expenses: Not hard at all Food Insecurity: No Food Insecurity (09/24/2024) Received from [facility] Hunger Screening Within the past 12 months we worried whether our food would run out before we got money to buy more.: Never True Within the past 12 months the food we bought just didn't last and we didn't have money to get more.: Never True Transportation Needs: No Transportation Needs (04/14/2023) Received from [facility], [facility] PRAPARE - Transportation Lack of Transportation (Medical): No Lack of Transportation (Non-Medical): No Physical Activity: Inactive (05/01/2024) Received from [facility] Exercise Vital Sign Days of Exercise per Week: 0 days Minutes of Exercise per Session: 0 min Stress: No Stress Concern Present (04/14/2023) Received from [facility] [place] of Occupational Health - Occupational Stress Questionnaire Feeling of Stress : Not at all Social Connections: Moderately Integrated (04/14/2023) Received from [facility] Social Connection and Isolation Panel [NHANES] Frequency of Communication with Friends and Family: Once a week Frequency of Social Gatherings with Friends and Family: Once a week Attends Rastafari Services: More than 4 times per year Active Member of Clubs or Organizations: Yes Attends Club or Organization Meetings: Never Marital Status: Intimate Partner Violence: Not on file Housing Stability: Low Risk (04/14/2023) Received from [facility] Housing Instability Are you worried or concerned [...] longer than right leg of a proximally awk-omrdaws-zern ASSESSMENT 1. Acquired inequality of length of [...] right leg the accommodate deformity with proximally sly-mihgtoz-hkqc. Will need to sign YADI in Kali oCnklin DPM documented in this encounterN[facility] HealthcareHistory of [...] and has been using prescribed or recommended kvsj-cii-uoupjpe cream with improvement. Allergies: Allergies Allergen Reactions Aspirin Buf(Yftoxd-Vzghcw-Giz) Other Reaction(s): Other (See Comments), Unknown Abdominal [...] Resource Strain: Low Risk (04/14/2023) Received from [facility] Overall Financial Resource Strain (CARDIA) Difficulty of Paying Living Expenses: Not hard at all Food Insecurity: No Food Insecurity (12/17/2024) Received from [facility] Hunger Screening Within the past 12 months we worried whether our food would run out before we got money to buy more.: Never True Within the past 12 months the food we bought just didn't last and we didn't have money to get more.: Never True Transportation Needs: No Transportation Needs (04/14/2023) Received from [facility], [facility] PRAPARE - Transportation Lack of Transportation (Medical): No Lack of Transportation (Non-Medical): No Physical Activity: Inactive (05/01/2024) Received from [facility] Exercise Vital Sign Days of Exercise per Week: 0 days Minutes of Exercise per Session: 0 min Stress: No Stress Concern Present (04/14/2023) Received from [facility] [place] of Occupational Health - Occupational Stress Questionnaire Feeling of Stress : Not at all Social Connections: Moderately Integrated (04/14/2023) Received from [facility] Social Connection and Isolation Panel [NHANES] Frequency of Communication with Friends and Family: Once a week Frequency of Social Gatherings with Friends and Family: Once a week Attends Rastafari Services: More than 4 times per year Active Member of Clubs or Organizations: Yes Attends Club or Organization Meetings: Never Marital Status: Intimate Partner Violence: Not on file Housing Stability: Low Risk (04/14/2023) Received from [facility] Housing Instability Are you worried or concerned [...] longer than right leg of a proximally wwv-ritulti-rikk Positive palpation right heel fissure ASSESSMENT 1. [...] in chart if warranted. Patient to pay [id number] Kali Conklin DPM [facility] Narrative No data available for this section [facility] Hospital Discharge instructions No data available for this section [facility] Hospital Discharge instructions Additional Instructions Your [...] or concerns, do not hesitate to come back.[facility] Work Phone: Hospital Discharge instructions Additional Instructions [...] appointment to see your physician in two weeks.[facility] Work Phone: Hospital Discharge instructions Additional Instructions [...] primary care provider, you can contact the [facility] orthopaedic clinic and ask about being established for primary care services. If you require specialist follow up, such as with an orthopedic physician, stripper latex, urologist, or other medical specialty, you should [...] should first take Tylenol or ibuprofen available cygj-red-wgjdykc. Medications, if prescribed to treat pain from [...] ED or if you have any other [facility] Work Phone: InstructionsNot on filedocumented in this [...] Care Everywhere. * Syncope (fainting) Discharge instructions (Tajik) documented in this encounterProMedica Health SystemProgress note No data available for this section [facility] reason for referral (narrative)* Consultation (Routine) - Authorized Specialty Diagnoses / Procedures Referred By Jd jiménez Referred To Contact Rehabilitation Diagnoses Midline low back pain without sciatica, unspecified chronicity Sascha Sutton DO [address] [facility] [place] [address] [facility] [address] [place] [address] Referral ID Status Reason Start Date Expiration Date Visits Requested Visits Authorized [id number] Authorized Specialty Services Required 12/14/2023 12/13/[address] 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 MCKENZIE KHALIL MARÍA LUMBAR [...] 2:14pm F/U AFTER 2ND LEFT CERVICAL MBB Septembe r 2023 10:01am LEFT CERVICAL FACET RFA C3 C4 /VW Sept emb2023 3:01pm F/U LEFT CERVICAL FACET RFA August [...] October 10, 2024 9:55am 6 WEEKS AFTER Kiera MCLEOD HIP JOINT INJECTI ON October 17, 2024 8:46am M16.11 M25.351 M25.551 November 05 9:47am MRI RESULTS November 09, 2024 10:51am 4 MONTHS November 26, 2024 9: 44am Bursitis R hip November 26, 2024 10 :15am Reason for Visit Admit Date Cough September 19, 2024 9 :04am Shortness of breath September 19, 2024 9 :04am Primary osteoarthritis of right hip Nove [facility] 2023 8:46am Greater trochanteric bursitis of right h ip November 09, 2024 10:51am Primary osteoarthritis of right hip Dece [facility] 2023 10:51am Arthritis of facet joint of [...] Admit Date Primary osteoarthritis of right hip Nove [facility] 2023 8:46am Greater trochanteric bursitis of right h ip November 09, 2024 10:51am Primary osteoarthritis of right hip Dece [facility] 2023 10:51am Arthritis of facet joint of [...] Admit Date Primary osteoarthritis of right hip Nove [facility] 2023 8:46am Greater trochanteric bursitis of right h ip November 09, 2024 10:51am Primary osteoarthritis of right hip Dece [facility] 2023 10:51am Arthritis of facet joint of [...] 10:51am Primary osteoarthritis of right hip Dece mber 2023 10:51am Arthritis of facet joint of [...] of right hip Sourav h 2024 9:00am Chief Complaint Admit Date 4 [...] February 21 7:52am Chief Complaint Admit Date Z12.5 E78.5 [...] 9:00am Iliotibial band syndrome, right leg Sourav 2024 9:00am Primary osteoarthritis of right hip Sourav 2024 9:00am Dyslipidemia February 15, 2025 11: [...] 35.9 Z79.899 May 01 10:25pm Chief Complaint Admit Date M76.31 - Iliotibial band syndrome, right leg April 10, 2025 8:56am 2 MONTHS April 10, 2025 9:30a m R bursitis of right hip April 18, 2025 8 :00am soof April 18, 2025 9:08a m R06.02 R06.00 35.9 Z79.899 May 01 7:28am R06.02 R06.00 35.9 Z79.899 May 01 10:25pm r55 June 25, 2025 10: 27am Reason for Visit Admit Date Greater trochanteric bursitis of right h ip April 10, 2025 9:30am Iliotibial band syndrome, right leg April 10, 2025 9:30am Lymphedema of both lower extremities April 10, 2025 9:30am Primary osteoarthritis of right hip April 10, 2025 9:30am Primary osteoarthritis of right knee April 10, 2025 9:30am Chief Complaint * Routine f/u: 'heart stuart [...] region without neurogenic claudication (M48.061) Referral Organization [facility] Referring Provider First Name Мария Referring Provider Last Name David Referring Provider Specialty Nurse Pool hernández Referred Organization [facility] Referred Provider Primo Jenkins Ref[address] Address [address] [place] [place], [place],[address] Referred Provider Specialty Neurology Referral Priority Routine [...] section and content) DATE CREATED AUTHOR 05/09/2018 [facility] DATE CREATED AUTHOR AUTHOR'S ORGANIZ ATION 05/10/2018 [facility] DATE CREATED AUTHOR AUTHOR'S ORGANIZ ATION 03/29/2023 [facility] DATE CREATED AUTHOR AUTHOR'S ORGANIZ ATION 04/01/2023 [facility] DATE CREATED AUTHOR AUTHOR'S ORGANIZ ATION 04/05/2023 [facility] DATE CREATED AUTHOR AUTHOR'S ORGANIZ ATION 12/18/2023 [facility] DATE CREATED AUTHOR AUTHOR'S ORGANIZ ATION 02/20/2024 [facility] DATE CREATED AUTHOR AUTHOR'S ORGANIZ ATION 06/13/2025 [facility] DATE CREATED AUTHOR AUTHOR'S ORGANIZ ATION 06/13/2025 [facility] DATE CREATED AUTHOR AUTHOR'S ORGANIZ ATION 06/29/2025 [facility] EPIC DATE CREATED AUTHOR AUTHOR'S ORGANIZ ATION [facility]2025 [facility] DATE CREATED AUTHOR AUTHOR'S ORGANIZ ATION 07/02/2025 [facility] Care Teams (unrecognized sec tion and content) Team Status: Active Member Role Status Radha Mcleod MD Primary Care Provider Active Team Status: Inactive Member Role Status Radha [...] CynthiaDO cierra Primary Care Provider Active Start: December 08, 2023 End: December 08, 2023 Romel Davis MD Attending Provider Active St art: December 08, 2023 End: December 08, 2023 Team Status: Inactive Member Role Status Dates Sascha Sutton DO Primary Care Provide r, Attending Provider Active Start: December 15, 2023 End: December 15, 2023 Electrician Locomotive Relationship Specialty Start Date End Date Sascha Sutton MD [address] [facility] [place] [address] PCP - General Family Medicine 12/28/23 Team Status: Inactive Member Role Status Dates Sascha Sutton DO Primary Care Provider Active Start: December 30, 2023 End: December 30, 2023 WILLOW Barros Attending Provider Active Start: December 30, 2023 End: December 30, 2023 Team Status: Inactive Member Role Status Dates Sascha Cynthiacierra Primary Care Provider Active Start: January 02, 2024 End: January 03, 2024 Edenilson Reinoso Jr, MD Emergency Provider Active Start: January 02, 2024 End: January 03, 2024 Team Status: Inactive Member Role Status Dates Sascha Cynthiacierra DO Primary Care Provider Active Start: January 10, 2024 End: January 10, 2024 TIM BarrosC Attending Provider Active Start: January 10, 2024 [...] February 09, 2024 End: February 09, 2024 Мария Hernandez NP-C Attending Provider Active Start: February 09, 2024 End: February 09, 2024 Team Status: Inactive Member Role Status Dates Sascha Cynthiacierra DO Primary Care Provider Active Start: February 21, 2024 End: February 21, 2024 Mckenzie Khalil MD Attending Provider Active Star t: February 21, 2024 End: February 21, 2024 Team Status: Inactive Member Role Status Dates Sascha Cynthiacierra Primary Care Provider Active Start: March 08, 2024 End: March 08, 2024 Mckenzie Khalil MD Attending Provider Active Star t: March 08, 2024 End: March 08, 2024 Team Status: Inactive Member Role Status Dates Sascha Cynthiacierra Primary Care Provider Active Start: March 13, [...] October 10, 2024 End: October 10, 2024 Electrician Locomotive Relationship Specialty Start Date End Date Sascha Sutton MD [address] [place] [address] PCP - General Family Medicine 12/28/23 Mckenzie Khalil MD [address] [place] [address] Referring Physician Neurosurgery 06/13/24 Carlos Eden DO [address] [place] [address] Otolaryngology 06/13/24 Electrician Locomotive Relationship Specialty Start Date End Date Sascha Sutton MD [address] [place] [address] PCP - General Family Medicine 12/28/23 Mckenzie Khalil MD [address] [place] [address] Referring Physician Neurosurgery 06/13/24 Carlos Eden DO [address] [place] [address] Otolaryngology 06/13/24 Electrician Locomotive Relationship Specialty Start Date End Date Sascha Sutton MD [address] [place] [address] PCP - General Family Medicine 12/28/23 Mckenzie Khalil MD [address] [address], [place] [address] Referring Physician Neurosurgery 06/13/24 Carlos Eden DO [address] [place] [address] Otolaryngology 06/13/24 Electrician Locomotive Relationship Specialty Start Date End Date Sascha Sutton MD [address], [place] [address] PCP - General Family Medicine 12/28/23 Mckenzie Khalil MD [address] [place] [address] [address] [place] [address] Referring Physician Neurosurgery 06/13/24 Carlos Eden DO [address] [place] [address] Otolaryngology 06/13/24 Electrician Locomotive Relationship Specialty Start Date End Date Sascha Sutton MD [address], [place] [address] PCP - General Family Medicine 12/28/23 Mckenzie Khalil MD [address] [place] [address], [address] [place], [place] [id number] Referring Physician Neurosurgery 06/13/24 Carlos Eden DO [address] [place] [address] Otolaryngology 06/13/24 Electrician Locomotive Relationship Specialty Start Date End Date Sascha Sutton DO [address] [facility] [place], [place] [id number] PCP - General Family Medicine 09/23/22 Team Status: Inactive Member Role Status Dates Jaime Murcia II, MD Attending Provider Active Start: October 17, 2024 End: October 17, 2024 Sascha Sutton DO Primary Care Provider Active Start: October 17, 2024 End: October 17, 2024 Team Status: Inactive Member Role Status Dates Sascha Sutton DO Primary Care Provider Active Start: November 05, [...] 26, 2024 End: November 26, 2024 Sascha Sutton DO Primary Care Provider Active Start: November 26, 2024 End: November 26, 2024 Team Status: Active Member Role Status Dates Sascha Sutton DO Primary Care Provider Active Start: November 26, 2024 Jaime Murcia II, MD Attending Provider Active Start: November 26, 2024 Electrician Locomotive Relationship Specialty Start Date End Date Sascha Sutton MD [address], [place] [address] PCP - General Family Medicine 12/28/23 Mckenzie Khalil MD [address], [place] [address] Referring Physician Neurosurgery 06/13/24 Carlos Eden DO [address] [place] [address] Otolaryngology 06/13/24 Team Status: Inactive Member Role Status Dates Sascha Sutton DO Primary Care Provide r, Attending Provider Active Start: December 07, 2024 End: December 07, 2024 Team Status: Active Member Role Status Dates Sascha Sutton DO Primary Care Provider Active Start: December 07, 2024 Jaime Murcia II, MD Attending Provider Active Start: December 07, 2024 Electrician Locomotive Relationship Specialty Start Date End Date Sascha Sutton MD [address], [place] [address] PCP - General Family Medicine 12/28/23 Mckenzie Khalil MD [address], [place] [address] Referring Physician Neurosurgery 06/13/24 Carlos Eden DO [address] [place] [address] Otolaryngology 06/13/24 Electrician Locomotive Relationship Specialty Start Date End Date Sascha Sutton MD [address], [place] [address] PCP - General Family Medicine 12/28/23 Mckenzie Khalil MD [address], [place] [address] Referring Physician Neurosurgery 06/13/24 Carlos Eden DO [address] [place] [address] Otolaryngology 06/13/24 Electrician Locomotive Relationship Specialty Start Date End Date Sascha Sutton DO [address], [place] [address] PCP - General Family Medicine 09/23/22 Electrician Locomotive Relationship Specialty Start Date End Date Sascha Sutton MD [address], [place] [address] PCP - General Family Medicine 12/28/23 Mckenzie Khalil MD [address], [place] [address] Referring Physician Neurosurgery 06/13/24 Carlos Eden DO [address] [place] [address] Otolaryngology 06/13/24 Electrician Locomotive Relationship Specialty Start Date End Date Sascha Sutton MD [address], [place] [address] PCP - General Family Medicine 12/28/23 Mckenzie Khalil MD [address] [place] [address], [address] [place] [address] Referring Physician Neurosurgery 06/13/24 Carlos Eden, [address] [place] [address] Otolaryngology 06/13/24 Electrician Locomotive Relationship Specialty Start Date End Date Sascha Sutton DO [address] [place] [address] PCP - General Family Medicine 09/23/22 Electrician Locomotive Relationship Specialty Start Date End Date Sascha Sutton DO [address] [place] [address] PCP - General Family Medicine 09/23/22 Electrician Locomotive Relationship Specialty Start Date End Date Sascha Sutton DO [address] [place] [address] PCP - General Family Medicine 09/23/22 Electrician Locomotive Relationship Specialty Start Date End Date Sascha Sutton DO [address] [place] [address] PCP - General Family Medicine 09/23/22 Electrician Locomotive Relationship Specialty Start Date End Date Sascha Sutton DO [address] [place] [address] PCP - General Family Medicine 09/23/22 Electrician Locomotive Relationship Specialty Start Date End Date Sascha Sutton DO [address] [place] [address] PCP - General Family Medicine 09/23/22 Electrician Locomotive Relationship Specialty Start Date End Date Sascha Sutton DO [address], [place] [address] PCP - General Family Medicine 09/23/22 Electrician Locomotive Relationship Specialty Start Date End Date Sascha Sutton DO [address], [place] [address] PCP - General Family Medicine 09/23/22 Electrician Locomotive Relationship Specialty Start Date End Date Sascha Sutton MD [address], [place] [address] PCP - General Family Medicine 12/28/23 Mckenzie Khalil MD [address] [place] [address] Referring Physician Neurosurgery 06/13/24 Carlos Eden DO [address] [place] [address] Otolaryngology 06/13/24 Electrician Locomotive Relationship Specialty Start Date End Date Sascha Sutton MD [address], [place] [address] PCP - General Family Medicine 12/28/23 Mckenzie Khalil MD [address] [place] [address], [address] [address] Referring Physician Neurosurgery 06/13/24 Carlos Eden DO [address] [place] [address] Otolaryngology 06/13/24 Team Status: Active Member Role [...] January 14, 2025 End: January 14, 2025 Electrician Locomotive Relationship Specialty Start Date End Date Sascha Sutton MD [address] [facility], [facility] [place] [address] PCP - General Family Medicine 12/28/23 Mckenzie Khalil MD [address] [place] [address], [address] [place] [address] Referring Physician Neurosurgery 06/13/24 Carlos Eden DO [address] [place] [address] Otolaryngology 06/13/24 Electrician Locomotive Relationship Specialty Start Date End Date Sascha Sutton DO [address], [place] [address] PCP - General Family Medicine 09/23/22 Electrician Locomotive Relationship Specialty Start Date End Date Sascha Sutton DO [address], [place] [address] PCP - General Family Medicine 09/23/22 Electrician Locomotive Relationship Specialty Start Date End Date Sascha Sutton MD [address], [place] [address] PCP - General Family Medicine 01/30/25 Mckenzie Khalil MD [address] [place] [address] Referring Physician Neurosurgery 06/13/24 Carlos Eden DO [address] [place] [address] Otolaryngology 06/13/24 Electrician Locomotive Relationship Specialty Start Date End Date Sascha Sutton MD [address], [place] [address] PCP - General Family Medicine 01/30/25 Mckenzie Khalil MD [address] [place] [address] Referring Physician Neurosurgery 06/13/24 Carlos Eden DO [address] [place] [address] Otolaryngology 06/13/24 Team Status: Active Member Role Status Dates Sascha Sutton DO Primary Care Provider Active Start: January 24, 2025 Jaime Murcia II, MD Attending Provider Active Start: January 24, 2025 Team Status: Inactive Member Role Status Dates Sascha Sutton DO Primary Care Provide r, Attending Provider Active Start: January 25, 2025 End: January 25, 2025 Electrician Locomotive Relationship Specialty Start Date End Date Sascha Sutton MD [address], [facility] [place] [address] PCP - General Family Medicine 01/30/25 Mckenzie Khalil MD [address] [place] [address] Referring Physician Neurosurgery 06/13/24 Carlos Eden DO [address] [place] [address] Otolaryngology 06/13/24 Electrician Locomotive Relationship Specialty Start Date End Date Sascha Sutton MD [address] [place] [address] PCP - General Family Medicine 01/30/25 Mckenzie Khalil MD [address] [place] [address] Referring Physician Neurosurgery 06/13/24 Carlos Eden DO [address] [place] [address] Otolaryngology 06/13/24 Team Status: Inactive Member Role [...] February 21, 2025 End: February 21, 2025 Electrician Locomotive Relationship Specialty Start Date End Date Sascha Sutton MD [address] [facility] [place] [address] PCP - General Family Medicine 01/30/25 Mckenzie Khalil MD [address] [place] [address], [address] [place] [address] Referring Physician Neurosurgery 06/13/24 Carlos Eden DO [address] [place] [address] Otolaryngology 06/13/24 Electrician Locomotive Relationship Specialty Start Date End Date Sascha Sutton MD [address], [place] [address] PCP - General Family Medicine 01/30/25 Mckenzie Khalil MD [address] [place] [address], [address] [place] [address] Referring Physician Neurosurgery 06/13/24 Carlos Eden DO [address] [facility] [place] [place] [address] Otolaryngology 06/13/24 Electrician Locomotive Relationship Specialty Start Date End Date Sascha Sutton DO [address], [facility] [place] [address] PCP - General Family Medicine 09/23/22 Team Status: Inactive Member Role Status Dates Sascha Sutton DO Primary Care Provider Active Start: January 24, 2025 End: January 24, 2025 Jaime Murcia II, MD Attending Provider Active Start: January 24, 2025 End: January 24, 2025 Electrician Locomotive Relationship Specialty Start Date End Date Sascha Sutton DO [address], [place] [address] PCP - General Family Medicine 09/23/22 Electrician Locomotive Relationship Specialty Start Date End Date Sascha Sutton MD [address], [place] [address] PCP - General Family Medicine 01/30/25 Mckenzie Khalil MD [address] [place] [address], [address] [place] [address] Referring Physician Neurosurgery 06/13/24 Carlos Eden DO [address] [place] [address] Otolaryngology 06/13/24 Electrician Locomotive Relationship Specialty Start Date End Date Sascha Sutton MD [address] [place] [address] PCP - General Family Medicine 01/30/25 Mckenzie Khalil MD [address] [place] [address] Referring Physician Neurosurgery 06/13/24 Carlos Eden DO [address] [place] [address] Otolaryngology 06/13/24 Electrician Locomotive Relationship Specialty Start Date End Date Sascha Sutton MD [address] [place] [address] PCP - General Family Medicine 01/30/25 Mckenzie Khalil MD [address] [place] [address] Referring Physician Neurosurgery 06/13/24 Carlos Eden DO [address] [place] [address] Otolaryngology 06/13/24 Team Status: Active Member Role Status Dates Sascha Sutton DO Primary Care Provider Active Start: March 13, 2025 Edenilson Mcleod MD Attending Provider Active Sta rt: March 13, 2025 Team Status: Active Member Role Status Dates Sascha CynthiaDO cierra Primary Care Provider Active Start: March 26, 2025 Jaime Murcia II, MD Attending Provider Active Start: March 26, 2025 Team Status: Inactive Member Role Status Dates Sascha CynthiaDO cierra Primary Care Provider Active Start: March 27, [...] cierra Primary Care Provider Active Start: April 18, 2025 End: April 18, 2025 Romel Davis MD Attending Provider Active St art: April 18, 2025 End: April 18, 2025 Team Status: Inactive Member Role Status Dates Sascha CynthiaDO cierra Primary Care Provider Active Start: May 01, 2025 End: May 01, 2025 WILLOW Paul Attending Provider Active Start: May 01, 2025 End: May 01, 2025 Team Status: Active Member Role Status Dates Sascha Sutton DO Primary Care Provider Active Start: May 01, 2025 WILLOW Paul Other Provider Active St art: May 01, 2025 Dante Simmons MD Attending Provider Active Start: May 01, 2025 Electrician Locomotive Relationship Specialty Start Date End Date Sascha Sutton MD [address] [facility] [place] [address] PCP - General Family Medicine 01/30/25 Mckenzie Khalil MD [address] [place] [address], [address] [address] Referring Physician Neurosurgery 06/13/24 Carlos Eden DO [address] [place] [address] Otolaryngology 06/13/24 Electrician Locomotive Relationship Specialty Start Date End Date Sascha Sutton DO [address], [facility] [place] [address] PCP - General Family Medicine 09/23/22 Electrician Locomotive Relationship Specialty Start Date End Date Sascha Sutton DO [address], [facility] [place] [address] PCP - General Family Medicine 09/23/22 Electrician Locomotive Relationship Specialty Start Date End Date Sascha Sutton DO PCP - General 03/30/23 Team Status: Inactive Member Role Status Dates Sascha Sutton DO Primary Care Provider Active Start: June 25, 2025 End: June 25, 2025 Melanie Trujillo DO Attending Provider Active S tart: June 25, 2025 End: June 25, 2025 Electrician Locomotive Relationship Specialty Start Date End Date Sascha Sutton MD [address], [facility] [place] [address] PCP - General Family Medicine 01/30/25 Mckenzie Khalil MD [address] [place] [address], [address] [address] Referring Physician Neurosurgery 06/13/24 Carlos Eden DO [address] [place] [address] Otolaryngology 06/13/24 Electrician Locomotive Relationship Specialty Start Date End Date Sascha Sutton MD [address] [facility] [place] [address] PCP - General Family Medicine 01/30/25 Mckenzie Khalil MD [address] [place] [address] [address] [place] [address] Referring Physician Neurosurgery 06/13/24 Carlos Eden DO [address] [place] [address] Otolaryngology 06/13/24 Goals (unrecognized section and content) [...] this encounter No data available for this sectionGoals may [...] Lost voice 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 Reason Comments Follow-up ER--from urgent care to [facility], pain level 4 Reason Comments Dizziness Headache Fall Reason Comments Foot Pain RT FT PAIN Reason Comments Follow-up FU RT foot Reason Comments Follow-up Rt edl check Reason Comments tcm Pinched nerve or pul led muscle chest--[facility] 02/16 Reason Comments Pain in the right su/swollen foot.ting ling Reason Comments maw Reason Comments PFT results Reason Comments TBH/ Fainting Reason Comments New Patient Visit Patient here to will yola garg, recently in [facility] ER 06.07.25 for syncope. Reason Comments Toenail Care FOR RECORDS PERTAINING TO PATIENTS WHO ARE [...] BE BASED ON THE PRIMARY CLINICAL RECORDS. [employer] provides no warranty or guarantee of the accuracy or completeness of information in this document.
[2025-07-14 14:18] LABS: Hematocrit 46.9 % (42.0-54.0); Hemoglobin 16.6 g/dL (14.0-18.0); Mean Corpuscular HGB Conc 35.4 g/dL (29.9-35.2); Mean Corpuscular Hemoglobin 32.0 pg (25.9-34.0); Mean Corpuscular Volume 90.4 fL (80.0-94.0); Platelet Count 198 10^3/uL (150-450); Red Blood Count 5.19 10^6/uL (4.70-6.10); White Blood Count 5.7 10^3/uL (4.0-11.0)
--- NOTE | 2025-07-14 14:22 | PC.NURSE ---
pt has had 3 episodes where he lays his head back and closes his eyes. Eyes can be observed moving under eye lids, does not respond to initial verbal command, after a couple of times yelling pt's name and touching pt, pt will sit up and open eyes. pt starts with a light cry asking what happened. No change on lunchroom monitor with these episodes and no seizure activity observed at this time. color television console monitor remains. Pt is alert and appropriate at this time.
[2025-07-14 14:39] LABS: Anion Gap 14.9; Blood Urea Nitrogen 25.0 mg/dL (7.0-18.0); Calcium 9.1 mg/dL (8.5-10.1); Carbon Dioxide 23.2 mmol/L (21.0-32.0); Chloride 106 mmol/L (98-107); Estimated GFR (African America >60 (>=60 mL/min/1.73m^2); Estimated GFR (Non-African Ame >60 (>=60 mL/min/1.73m^2); Glucose 108 mg/dL (74-106); Magnesium 2.0 mg/dL (1.8-2.4); Potassium 4.1 mmol/L (3.5-5.1); Sodium 140 mmol/L (136-145)
[2025-07-14 14:41] LABS: NT Pro B Type Natriuretic Pept 87.0 pg/mL (<=900.0)
--- NOTE | 2025-07-14 14:42 | ED.GENADUL1 ---
HPI HPI - General Adult General Chief complaint: Syncope Stated complaint: Unresponsive Time Seen by Provider: 07/14/25 14:07 Source: patient Mode of arrival: Wheelchair History of Present Illness HPI narrative: Patient is a 70-year-old male presenting to the emergency department with his for concerns of syncope. Patient was driving the car with his when he started to feel foggy . He subsequently lost consciousness. On arrival to the ED, the patient was awake, but confused and was having a hard time ambulating to the stretcher. The patient states that he felt foggy and cannot remember the rest of the events leading to his ED arrival. Currently, the patient states he is asymptomatic. He denies any chest pain or shortness of breath. No nausea or vomiting. No headaches, changes in his vision, weakness, sensory deficits, abdominal pain, fevers, chills, palpitations, dizziness, or lightheadedness. The patient states that this has happened numerous times in the past few months. He has been seen by numerous specialist, including cardiology and neurology. They state that the cardiology placed a 30-day event monitor on his chest. They state that the sales promotion coordinator noted occasional PVCs, but nothing else that would be concerning. She also states he had a normal carotid ultrasound and echocardiogram with an EF of 50% just a couple months ago. They deny history of previous [place] or arrhythmia. Additionally, the patient has been seen by neurology, and has a follow-up appointment in 4 days. Unclear if the patient had previous MRI or EEGs. Related Data Home Medications ?Medication ?Instructions ?Recorded ?Confirmed aspirin 81 mg capsule 81 mg PO DAILY 02/01/24 07/14/25 fexofenadine-pseudoephedrine ER 1 tab PO Q24H PRN allergy symptoms 02/01/24 07/14/25 180 mg-240 mg tablet,ext.release 24 hr (Seema-D 24 Hour) folic acid 1 mg tablet 1 mg PO BID 02/01/24 07/14/25 hydroxychloroquine 200 mg tablet 200 mg PO BID 02/01/24 07/14/25 leflunomide 10 mg tablet 10 mg PO DAILY 02/01/24 07/14/25 lisinopril 20 1 tab PO DAILY 02/01/24 07/14/25 mg-hydrochlorothiazide 12.5 mg tablet methotrexate sodium 25 mg/mL 25 mg IM .weekly 02/01/24 07/14/25 injection solution montelukast 10 mg tablet 10 mg PO DAILY 02/01/24 07/14/25 omeprazole 40 mg capsule,delayed 40 mg PO DAILY 02/01/24 07/14/25 release potassium bicarbonate-citric acid 25 meq PO BID 02/01/24 07/14/25 25 mEq effervescent tablet (Klor-Con/EF) prednisolone acetate 1 % eye 1 drp ophthalmic (eye) Q6H PRN 02/01/24 07/14/25 drops,suspension IRISTIS simvastatin 20 mg tablet 20 mg PO DAILY 02/01/24 07/14/25 tamsulosin 0.4 mg capsule 0.4 mg PO BID 02/01/24 07/14/25 tramadol 50 mg tablet 50 mg PO BID PRN pain 02/01/24 07/14/25 carboxymethylcellulose sodium 1 % 2 drp ophthalmic (eye) DAILY PRN 02/02/24 07/14/25 eye liquid gel drops (Refresh dry eye(s) Liquigel) leucovorin calcium 5 mg tablet 5 mg PO .weekly 02/02/24 07/14/25 methylprednisolone 4 mg tablets in 4 mg PO DAILY PRN flare 02/02/24 07/14/25 a dose pack (Medrol (Nicolas)) acetaminophen 500 mg capsule 1,000 mg PO TID PRN pain 09/06/24 07/14/25 meloxicam 15 mg tablet 15 mg PO DAILY 09/06/24 07/14/25 budesonide-formoterol HFA 80 2 inh inhalation Q12H 06/07/25 07/14/25 mcg-4.5 mcg/actuation aerosol inhaler dutasteride 0.5 mg capsule 0.5 mg PO DAILY 06/07/25 07/14/25 fluticasone propionate 50 1 spray intranasal DAILY PRN nasal 06/07/25 07/14/25 mcg/actuation nasal congestion spray,suspension (24 Hour Allergy Relief) gabapentin 100 mg capsule 100 mg PO TID 06/07/25 07/14/25 primidone 50 mg tablet 50 mg PO Q8H 06/07/25 07/14/25 fexofenadine-pseudoephedrine ER 1 tab PO Q24H PRN allergy symptoms 07/14/25 07/14/25 180 mg-240 mg tablet,ext.release 24 hr (24HR Allergy-Congestion Relief) Allergies Allergy/AdvReac Type Severity Reaction Status Date / Time oxycodone Allergy Severe Hallucinati Verified 07/14/25 14:07 ng cephalexin Allergy Unknown Unknown Verified 07/14/25 14:07 Sulfa (Sulfonamide Allergy Unknown Rash Verified 07/14/25 14:07 Antibiotics) aspirin (From Bufferin) Allergy Unknown Verified 07/14/25 14:07 calcium carbonate (From Allergy Unknown Verified 07/14/25 14:07 Bufferin) magnesium (From Bufferin) Allergy Unknown Verified 07/14/25 14:07 Review of Systems ROS Status of ROS 10 or more systems reviewed and unremarkable except as noted in history and below [facility] Medical History (Updated 07/14/25 @ 16:34 by Álvaro Kuo DO) Benign prostatic hyperplasia with lower urinary tract symptoms ?N40.1 - Benign prostatic hyperplasia with lower urinary tract symptoms (ICD-10) Intention tremor ?G25.2 - Other specified forms of tremor (ICD-10) Thyroid nodule ?E04.1 - Nontoxic single thyroid nodule (ICD-10) Cleft palate and cleft lip ?Q37.9 - Unspecified cleft palate with unilateral cleft lip (ICD-10) Uses hearing aid ?Z97.4 - Presence of external hearing-aid (ICD-10) S/P extracorporeal shock wave therapy (02/16/24) ?Z98.890 - Other specified postprocedural states (ICD-10) Undifferentiated connective tissue disease ?M35.9 - Systemic involvement of connective tissue, unspecified (ICD-10) H/O coronary angiogram ?Z98.890 - Other specified postprocedural states (ICD-10) Spondylolisthesis ?M43.10 - Spondylolisthesis, site unspecified (ICD-10) Osteoarthritis ?M19.90 - Unspecified osteoarthritis, unspecified site (ICD-10) Hiatal hernia ?K44.9 - Diaphragmatic hernia without obstruction or gangrene (ICD-10) History of esophageal dilatation ?Z98.890 - Other specified postprocedural states (ICD-10) Elevated partial thromboplastin time (PTT) ?R79.1 - Abnormal coagulation profile (ICD-10) History of perforated ear drum ?Z86.69 - Personal history of other diseases of the nervous system and sense organs (ICD-10) Hypertension ?I10 - Essential (primary) hypertension (ICD-10) Lumbar stenosis ?M48.061 - Spinal stenosis, lumbar region without neurogenic claudication (ICD-10) DDD (degenerative disc disease) Skin cancer ?C44.90 - Unspecified malignant neoplasm of skin, unspecified (ICD-10) Ureteral stone with hydronephrosis ?N13.2 - Hydronephrosis with renal and ureteral calculous obstruction (ICD-10) Hematuria ?R31.9 - Hematuria, unspecified (ICD-10) Cleft palate ?Q35.9 - Cleft palate, unspecified (ICD-10) Eye cancer ?C69.90 - Malignant neoplasm of unspecified site of unspecified eye (ICD-10) Osteoporosis ?M81.0 - Age-related osteoporosis without current pathological fracture (ICD-10) Lupus ?M32.9 - Systemic lupus erythematosus, unspecified (ICD-10) Rheumatoid arthritis ?M06.9 - Rheumatoid arthritis, unspecified (ICD-10) Hyperlipidemia ?E78.5 - Hyperlipidemia, unspecified (ICD-10) Kidney stone ?N20.0 - Calculus of kidney (ICD-10) Surgical History (Updated 06/12/25 @ 11:38 by Christiana Kenyon NP) H/O lithotripsy (10/25/24) ?Z98.890 - Other specified postprocedural states (ICD-10) History of lithotripsy ?Z98.890 - Other specified postprocedural states (ICD-10) History of repair of congenital cleft palate ?Z87.730 - Personal history of (corrected) cleft lip and palate (ICD-10) H/O eye surgery ?Z98.890 - Other specified postprocedural states (ICD-10) History of lumbar laminectomy ?Z98.890 - Other specified postprocedural states (ICD-10) H/O shoulder surgery ?Z98.890 - Other specified postprocedural states (ICD-10) History of tympanoplasty ?Z98.890 - Other specified postprocedural states (ICD-10) H/O Spinal surgery ?Z98.890 - Other specified postprocedural states (ICD-10) H/O esophagogastroduodenoscopy ?Z98.890 - Other specified postprocedural states (ICD-10) Hx of colonoscopy ?Z98.890 - Other specified postprocedural states (ICD-10) History of carpal tunnel release ?Z98.890 - Other specified postprocedural states (ICD-10) H/O arthroscopy of knee ?Z98.890 - Other specified postprocedural states (ICD-10) Hx of total knee arthroplasty ?Z96.659 - Presence of unspecified artificial knee joint (ICD-10) Family History (Updated 02/02/24 @ 08:19 by Stephanie Thakur, RN) Other Family history of diabetes mellitus Family history of hypertension Family history of myocardial infarction Kidney stone Social History (Updated 02/02/24 @ 08:18 by Stephanie Thakur, KATHE) Within the past year, how often did you have a drink containing alcohol: never Score interpretation: A score less than 4 is consistent with normal alcohol consumption. 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 Follows commands appropriately. SKIN: Was warm and dry. EYES: No conjunctival pallor. PERRLA. EOMI. EARS, NOSE, THROAT: Moist oral mucosa. No JVD. No tongue lacerations RESPIRATORY: Clear to auscultation bilaterally, no wheezes, crackles, or stridor, no use of accessory muscles CARDIOVASCULAR: Normal rate and regular rhythm. There is no S3, S4, murmur, rub. GASTROINTESTINAL: Abdomen was soft, non-tender, and non-distended. There is no guarding or rebound tenderness MUSCULOSKELETAL: There was no lower extremity edema, erythema, or tenderness. NEUROLOGIC: Patient is awake and alert. Equal strength in all extremities. Sensation intact to light touch in bilateral upper/lower extremities. Facies were symmetrical. Constitutional Vital Signs, click to edit/add: Last Vital Signs Temp 97.4 F L 07/14/25 14:09 Pulse 62 07/14/25 16:20 Resp 15 07/14/25 16:20 BP 140/75 07/14/25 16:15 Pulse Ox 97 07/14/25 15:30 O2 Del Method Room Air 07/14/25 14:09 Course Vital Signs Vital signs: Vital Signs Blood Pressure 144/83 H 07/14/25 14:02 Pulse Oximetry 96 07/14/25 14:02 Temperature 97.4 F L 07/14/25 14:09 Pulse Rate 62 07/14/25 16:20 Respiratory Rate 15 07/14/25 16:20 Blood Pressure 140/75 07/14/25 16:15 Pulse Oximetry 97 07/14/25 15:30 Oxygen Delivery Method Room Air 07/14/25 14:09 Medical Decision Making MDM Narrative Medical decision making narrative: Patient is a 70-year-old male presenting to the emergency department with his for evaluation of syncope/brief period of LOC. On patient's arrival, he was met in the parking lot by myself and nursing staff. He was awake, but appeared confused. He was able to stand up but needed assistance walking to the stretcher. After few minutes, he came to, and is now A&O x 3. He has no complaints currently, only states that his brain feels a little foggy . Patient was placed on the alarm security or surveillance monitor that demonstrated normal sinus rhythm with occasional PVCs by my interpretation. His vital signs are within normal limits. He is afebrile and hemodynamically stable. Patient has a normal physical examination. He has no neurologic deficits. He has a cardiac event monitor on his chest. On review of external documentation, patient was seen in the emergency department on 06/07/2025 with almost the same exact presentation of syncope. He had a cardiac workup that was unremarkable. He also had a head CT that was normal. My differential diagnosis includes recurrent syncopal event, ACS, arrhythmia, partial seizures, or other electrolyte/metabolic derangement. He is on a significant amount of medications, polypharmacy could be contributing. Also, narcolepsy could be a potential diagnosis. IV was established and laboratory studies were obtained. 12 Lead EKG: Normal sinus rhythm at a rate of 72. One PVCs. Normal axis. No ST segment elevations. QRS, SC, and QTc interval within normal limits. Unchanged compared to prior EKG from 06/07/2025. Final impression: normal sinus rhythm without evidence of acute myocardial ischemia. Chest x-ray independently reviewed/interpreted by myself demonstrated no acute cardiopulmonary process. Laboratory studies were unremarkable. No significant electrolyte or metabolic derangement. No evidence of acute kidney injury. No anemia, leukocytosis, or thrombocytopenia. Initial and 2-hour repeat troponin were 10 and 11 respectively, no significant elevation or delta. During the patient's work up, he will continuously fall asleep while nursing staff talk to him, then promptly awaken when his name is yelled. During these episodes, he has no change on the alarm security or surveillance monitor. I do believe the patient stable for discharge. He remains asymptomatic without any true syncopal events or seizure-like activity. The patient already has well-established outpatient follow-up. He actually has an appointment with his neurologist in 4 days and his sales promotion coordinator in 1.5 weeks. He was instructed to maintain his appointments. Return precautions were given including any new or concerning symptoms. Patient understands and agrees the plan. FINAL IMPRESSION: #Acute syncope, recurrent DISPOSITION: Discharged home CONDITION: Fair Medical Records Medical records reviewed: Yes I reviewed the patient's medical records Lab Data Lab results reviewed: Yes I reviewed the patient's lab results Labs: Lab Results 07/14/25 07/14/25 Range/Units 14:11 15:59 WBC 5.7 (4.0-11.0) 10^3/uL RBC 5.19 (4.70-6.10) 10^6/uL Hgb 16.6 (14.0-18.0) g/dL Hct 46.9 (42.0-54.0) % MCV 90.4 (80.0-94.0) fL MCH 32.0 (25.9-34.0) pg MCHC 35.4 H (29.9-35.2) g/dL RDW 13.6 (11.0-15.0) % Plt Count 198 (150-450) 10^3/uL MPV 9.9 (9.5-13.5) fL Sodium 140 (136-145) mmol/L Potassium 4.1 (3.5-5.1) mmol/L Chloride 106 (98-107) mmol/L Carbon Dioxide 23.2 (21.0-32.0) mmol/L Anion Gap 14.9 BUN 25.0 H (7.0-18.0) mg/dL Creatinine 1.01 (0.70-1.30) mg/dL Est GFR ( Amer) >60 (>=60 mL/min/1.73m^2) Est GFR (Non-Af Amer) >60 (>=60 mL/min/1.73m^2) BUN/Creatinine Ratio 24.8 Glucose 108 H (74-106) mg/dL Calcium 9.1 (8.5-10.1) mg/dL Magnesium 2.0 (1.8-2.4) mg/dL Troponin I High Sens 10.2 11.1 (4.0-76.1) pg/mL NT-Pro-B Natriuret Pep 87.0 (<=900.0) pg/mL Imaging Data Chest x-ray: Radiologist's impression: ITS Impressions Chest X-Ray 07/14/25 14:08 IMPRESSION: No acute cardiopulmonary pathology. Impression dictated by: Cy Bill M.D. 07/14/2025 2:31 PM Dictation Location: [place] [address] Electronically authenticated by: [id number] Y Date: 07/14/2025 14:31 ECG Data Attestation: I personally reviewed and interpreted this ECG as follows: Discharge Plan Discharge Chief Complaint: Syncope Clinical Impression: Syncope Qualifiers: Encounter type: initial encounter Patient Disposition: Home, Self-Care Time of Disposition Decision: 14:43 Condition: Good Mode of Transportation: Private Vehicle Prescriptions / Home Meds: No Action meloxicam 15 mg tablet 15 mg PO DAILY acetaminophen 500 mg capsule 1,000 mg PO TID PRN (Reason: pain) fexofenadine-pseudoephedrine [24HR Allergy-Congestion Relief] 180-240 mg tablet extended release 24 hr 1 tab PO Q24H PRN (Reason: allergy symptoms) fexofenadine-pseudoephedrine [Seema-D 24 Hour] 180-240 mg tablet extended release 24 hr 1 tab PO Q24H PRN (Reason: allergy symptoms) aspirin 81 mg capsule 81 mg PO DAILY Klor-Con/EF 25 mEq tablet, effervescent 25 meq PO BID tamsulosin 0.4 mg capsule 0.4 mg PO BID Patient Comments: daily folic acid 1 mg tablet 1 mg PO BID lisinopril-hydrochlorothiazide 20-12.5 mg tablet 1 tab PO DAILY hydroxychloroquine 200 mg tablet 200 mg PO BID leflunomide 10 mg tablet 10 mg PO DAILY methotrexate sodium 25 mg/mL solution 25 mg IM .weekly montelukast 10 mg tablet 10 mg PO DAILY omeprazole 40 mg capsule,delayed release(DR/EC) 40 mg PO DAILY prednisolone acetate 1 % drops,suspension 1 drp OPHTHALMIC (EYE) Q6H PRN (Reason: IRISTIS) simvastatin 20 mg tablet 20 mg PO DAILY tramadol 50 mg tablet 50 mg PO BID PRN (Reason: pain) leucovorin calcium 5 mg tablet 5 mg PO .weekly methylprednisolone [Medrol (Nicolas)] 4 mg tablets,dose pack 4 mg PO DAILY PRN (Reason: flare) carboxymethylcellulose sodium [Refresh Liquigel] 1 % drops, liquid gel 2 drp ophthalmic (eye) DAILY PRN (Reason: dry eye(s)) fluticasone propionate [24 Hour Allergy Relief] 50 mcg/actuation spray,suspension 1 spray intranasal DAILY PRN (Reason: nasal congestion) Rx Instructions: administer into each nostril dutasteride 0.5 mg capsule 0.5 mg PO DAILY primidone 50 mg tablet 50 mg PO Q8H gabapentin 100 mg capsule 100 mg PO TID budesonide-formoterol 80-4.5 mcg/actuation HFA aerosol inhaler 2 inh INHALATION Q12H Print Language: [place] Instructions: Syncope (ED) Referrals: ANAND SUTTON [Primary Care Provider, Family Practice] - 1 week
[2025-07-14] MEDS: ACETAMINOPHEN 500 MG TABLET 1000 MG PO (15:53)
== END 2025-07-14 16:47 | disposition home or self-care (01) ==
PROVIDERS: Emergency Provider Student in an Organized Health Care Education/Training Program; PCP Family Medicine
DX: R55 Syncope and collapse (principal); I10 Essential (primary) hypertension
CPT/HCPCS: 36415; 71045; 80048; 82948; 83735; 83880; 84484; 85027; 93005; 99285

== ENCOUNTER 2025-09-03 10:39 | Outpatient (OUT) | payer MEDICARE, SELFPAY ==
--- OUTSIDE RECORDS SUMMARY | 2025-09-03 10:48 | XMS_ITS | CCD ---
Author Organization [facility] Inform ion Partnership [facility] Care Team Providers Care 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 Name Role Phone REBEKAH REED Unavailable Unavailable REBEKAH REED Unavailable Unavailable DO Sascha Sutton Primary Care Provider [phone] MD Adam Davis Attending Provider DO Sascha Sutton Primary Care Provider [phone] WILLOW Sanchez Attending Provider KARIN Ibrahim Attending Provider DO Sascha Sutton Primary Care Provider WILLOW Sanchez Attending Provider DO Sascha Sutton Primary Care Provider WILLOW Sanchez Attending Provider PAY ., DR [...] Trujillo Attending Provider Dr. Alfonso Trujillo Attending Nikkiva miguel Sutton, Dr. Sascha Espinoza Primary Care Jennie Trujillo, Dr. Alfonso Parham Attending Jennie Trujillo, Dr. Alfonso Parham Referring Unava miguel Sutton, Dr. Sascha Espinoza Primary Care Unava ilable Furgeneng, DO Sascha Primary Care Provider Furlong, DO Sascha Attending Provider MD Edenilson Reinoso Jr Emergency Provider DO Romel Orta Emergency Provider Unava MD Zac Aguirre Attending Provider WILLOW Sanchez Attending Provider MD Zac Muniz Referring Provider SASCHA SUTTON Primary Care Physician [phone] Furlong, DO Sascha Primary Care Provider MD Zca Muniz Attending Provider Furlong, DO Sascha Primary Care Provider MD Zac Muniz Attending Provider [phone] Furlong, DO Sascha Primary Care Provider MD Romel Davis Attending Provider [phone] Herman, DO Sascha Primary Care Provider MD Zac Muniz Attending Provider MD Romel Davis Attending Provider Furgeneng, DO Sascha Primary Care Provider [phone] MD Romel Davis Attending Provider MD Zac Muniz Attending Provider Furlong, DO Sascha Primary Care Provider MD Romel Davis Attending Provider Herman, DO Sascha Attending Provider SASCHA SUTTON Referring Unavailable FURLOOSMANI, SASCHA Candelaria Primary Care Unavailable Unavailable Primary Care Provider Unavailabl e Sascha Sutton MD Primary Care Provider WILLOW Hernandez Attending Provider Мария Hernandez Unavailable MD Edenilson Reinoso Jr Emergency Provider Furlong, DO Sascha Primary Care Provider MD Romel Davis Attending Provider [phone] Furlong, DO Sascha Attending Provider WILLOW Hernandez Attending Provider MD Edenilson Reinoso Jr Emergency Provider MD Zac Muniz Attending Provider [phone] FURLONG, SASCHA G Referring Unavailable FURLONG, SASCHA G Primary Care Unavailable FURLONG, SASCHA G Referring Unavailable FURLONG, SASCHA G Primary Care Unavailable FURLONG, SASCHA G Referring Unavailable FURLONG, SASCHA G Primary Care Unavailable Furlong, DO Sascha Primary Care Provider MD Mckenzie Khalil Attending Provider MD Romel Davis Attending Provider [phone] Furlong, DO Sascha Primary Care Provider WILLOW Hernandez Attending Provider Furlong, DO Sascha Primary Care Provider Furlong, DO Sascha Primary Care Provider DO Carlos Eden Attending Provider [phone] Furlong, DO Sascha Primary Care Provider MD Mckenzie Khalil Attending Provider [phone] Furlong, DO Sascha Primary Care Provider Furlong, DO Sascha Primary Care Provider MD Mckenzie Khalil Attending Provider MD Edenilson Mcleod Primary Care Provider [phone] MD Romel Davis Attending Provider MD Jaime Murcia II Attending Provider MARCOS Fonseca Attending Provider Edenilson Mcleod MD Primary Care Provider Jaime Murcia MD Attending Provider Myriam Fonseca APRN Attending Provider Furlong DO, Sascha Primary Care Provider Romel Davis MD Attending Provider Evaristo ONEAL, Mckenzie Unavailable Murandrea FERRELLCarlos W Unavailable [phone] Mckenzie Khalil MD Unavailable Furlong DO, Sascha G Primary Care Provider Edenilson Mcleod MD Primary Care Provider Jaime Murcia MD Attending Provider Furlong DO, Sascha Attending Provider Evaristo ONEAL, Mckenzie Unavailable Furlong DO, Sascha Primary Care Provider Matthew Harrell PA-C Emergency Provider Romel Davis MD Attending Provider Sascha Sutton MD Primary Care Provider Furlong DO, Sascha Primary Care Provider [phone] Jaime Murcia MD Attending Provider Furlong DO, Sascha Attending Provider [phone] Matthew Harrell PA-C Emergency Provider Romel Davis MD Attending Provider Furlong DO, Sascha Primary Care Provider [phone] Jaime Murcia MD Attending Provider [phone] Martha Gomes MD Emergency Provider Marley Dumont MD Admit Provider Marley Dumont MD Attending Provider Yohan ONEAL, Gabi Attending Provider Vernell ONEAL, Rita Other Provider [phone] Furlong DO, Sascha G Primary Care Provider Evaristo ONEAL, Mckenzie Unavailable Furlong DO, Sascha Primary Care Provider Furlong DO, Sascha Attending Provider Furlong DO, Sascha Primary Care Provider Romel Davis MD Attending Provider Furlong DO, Sascha Primary Care Provider Jaime Murcia MD Attending Provider Laura RUBBLE PLACER-C, Christine Gaviria Attending Provider FURLONG, SASCHA G [...] Unavailable FURLONG, SASCHA G Primary Care Unavailable Furlong DO, Sascha Esther Primary Care Provider Furlong DO, Sascha Primary Care Provider [phone] Laura RUBBLE PLACER-C, Christine Gaviria Other Provider [phone] Dante Simmons MD Attending Provider [phone] Melanie Trujillo DO Attending Provider Furlong DO, Sascha Primary Care Provider Becki RUBBLE PLACER-C, Shabnam Pandey Attending Provider Kaitlyn Troy MD Referring Provider Cynthialong , Sascha Primary Care Provider [phone] Oblukas RUBBLE PLACER-C, Christine Gaviria Attending Provider Edenilson Mcleod MD Attending Provider CARLOS EDEN Attending Unavailable WHIT TAYLOR Attending Unavailable KALI CONKLIN Attending Unavailable KALI CONKLIN Attending Unavailable KALI CONKLIN Attending Unavailable KALI CONKLIN Attending Unavailable KALI CONKLIN Attending Unavailable WHIT TAYLOR Attending Unavailable KALI CONKLIN Attending Unavailable WINDNASHABNAM ROBERTSON Attending Unavailable KALI CONKLIN Attending Unavailable SHABNAM CONNELL Attending Unavailable WINDNASINGH ROBERTSONICIA C Referring Unavailable WHIT TAYLOR Attending Unavailable LISA CONKLINOLAS A Attending Unavailable BROWNLISAKALI A Attending Unavailable BROWNLISAKALI A Referring Unavailable Rita Matt Consulting Unavailable Gabi Almanzar Attending Unavailable Marley Dumont Admitting Unavailable Furlong, Sascha Primary Care Unavailable Furlong, Sascha Primary Care Unavailable Romel Davis Attending Unavailable Romel Davis Admitting Unavailable Furlong, Sascha Primary Care Unavailable Jaime Murcia II Attending Unavailabl e Jaime Murcia II Admitting Unavailabl e Furlong, Sascha Primary Care Unavailable ObChristine gaytan Attending Unavailable Christine Sanchez Admitting Unavailable Furlong, Sascha Primary Care Unavailable Twin HOOKER, Jaime Chapa Attending Unavailabl e [place]am[place] II, Jaime Chapa Admitting Unavailabl e Furlong, Sascha Primary Care Unavailable Furlong, Sascha Attending Unavailable Furlong, Sascha Admitting Unavailable Furlong, Sascha Primary Care Unavailable Furlong, Sascha Attending Unavailable Furlong, Sascha Admitting Unavailable Furlong, Sascha Primary Care Unavailable Twin HOOKER, Jaime Chapa Attending Unavailabl e [place] II, Jaime Chapa Admitting Unavailabl e Felter, Edenilson Primary Care Unavailable [place] II, Jaime Chapa Attending Unavailabl e Twin II, Jaime Chapa Admitting Unavailabl e Felter, Edenilson Primary Care Unavailable RaymundoMyriam gómez Attending Unavailable Myriam Fonseca Admitting Unavailable Furlong, Sascha Primary Care Unavailable Romel Davis Attending Unavailable Ryan, Romel Admitting Unavailable Furlong, Sascha Primary Care Unavailable Twin HOOKER, Jaime Chapa Attending Unavailabl e Twin HOOKER, Jaime Chapa Admitting Unavailabl e Furlong, Sascha Primary Care Unavailable Romel Davis Attending Unavailable Romel Davis Admitting Unavailable Matthew Harrell Attending Unavailable Matthew Harrell Admitting Unavailable Furlong, Sascha Primary Care Unavailable Furlong, Sascha Primary Care Unavailable ObChristine gaytan Attending Unavailable Christine Sanchez Admitting Unavailable Furlong, Sascha Primary Care Unavailable Melanie Trujillo Attending Unavailable Melanie Trujillo Admitting Unavailable Furlong, Sascha Primary Care Unavailable Shabnam Connell Attending Unavailable Shabnam Connell Admitting Unavailable Furlong, Sascha Primary Care Unavailable Kaitlyn Troy Referring Unavailable Melanie Trujillo Attending Unavailable Melanie Trujillo Admitting Unavailable MUNIZ, Zac De Oliveira Attending Unavailable MUNIZ, Zac R Attending Unavailable MUNIZ, Zac R Attending Unavailable MUNIZ, Zac R Attending Unavailable MUNIZ, Zac R Attending Unavailable MUNIZ, Zac R Attending Unavailable MUNIZ, Zac R Attending Unavailable MUNIZ, Zac R Attending Unavailable MUNIZ, Zac R Referring Unavailable MUNIZ, Zac R Attending Unavailable MUNIZ, Zac R Attending Unavailable MUNIZ, Zac R Attending Unavailable Daria Jimenez Attending Unavailable ALFONSO TRUJILLO Referring Unavailable FURLONG, SASCHA ESTHER Primary Care Unavailab le ALFONSO TRUJILLO Attending Unavailable SASCHA SUTTON Primary Care Unavailab le Allergies Allergy Classification Reported Allergen(s) Allergy Type Date of Onset Reaction(s) Facility Calcium Carbonate (4 sources) Calcium Carbonate Drug Allergy 04-09-[address] [facility] Cephalosporins (antibiotic) (8 sources) Cephalexin Drug Allergy 04-09-[address] [facility] Magnesium (4 sources) Magnesium Drug Allergy 04-09-[address] [facility] Opioid Agonists (4 sources) oxyCODONE Drug Allergy 04-09-[address] [facility] Sulfonamides (antibiotic) (4 sources) Sulfonamides (Antibiotic) Drug Allergy 04-09-[address] [facility] (20 sources) cephalexin; Translations: [CEPHALEXIN] Drug Allergy 04-25-20 18 Unknown (qualifier value), Unknown [facility] (20 sources) oxyCODONE; Translations: [OXYCODONE] Drug Allergy 04-25-20 18 Hallucinations (finding), Hallucinations [facility] (20 sources) Sulfonamides (Antibiotic); Translations: [SULFA (SULFONAMIDE ANTIBIOTICS)] Propensity to adverse reactions to drug (disorder) 05-20-20 14 Other (See Comments), Rash [facility] (2 sources) ASPIRIN, BUFFERED; Translations: [ASPIRIN, BUFFERED] Propensity to adverse reactions to drug (disorder) 04-25-20 18 [facility] (20 sources) Calcium Carbonate; Translations: [CALCIUM CARBONATE] Drug Allergy 07-19-20 19 GI intolerance, Nausea [facility] Comment on above: Is able to take aspi rin (20 sources) Cephalosporins (Antibiotic); Translations: [Cephalosporins] Allergy to substance 05-20-20 14 Unknown, Other (See Comments) [facility] (20 sources) Magnesium; Translations: [MAGNESIUM] Drug Allergy 07-19-20 19 GI intolerance, GI Disturbance, Nausea [facility] Comment on above: Is able to take aspi rin (1 source) Sulfonamides (Antibiotic) Drug allergy (disorder) [facility] Repository (4 sources) Sulfamethoxazole; Translations: [sulfa] Drug Allergy Unknown [place] [address] DO Work Phone: (12 sources) Sulfonamides (Antibiotic); Translations: [sulfa drugs] Drug allergy Unknown (qualifier value) [facility] (20 sources) ASPIRIN,BUFFD-ELIZABETH CIUM CARB-MAG; Translations: [ASPIRIN,BUFFD-CA LCIUM CARB-MAG] Propensity to adverse reactions to drug (disorder) 09-29-20 22 Vomiting, Nausea/vomiting [facility] (20 sources) Aspirin Drug Allergy 10-13-20 15 [facility] (20 sources) Sulfonamides (Antibiotic) Drug Allergy 05-20-20 14 Rash [facility] (1 source) Aspirin Drug Allergy Unknown [facility] Other (1 source) Sulfacetamide in [place] Drug allergy Unknown [facility] Other Medications Current Medications Medication Drug Class(es) Dates Sig (Normalized) Sig (Original) acetaminophen 500 mg oral tablet (20 sources) Start: 05-09-2023 End: 02-16-2025 acetaminophen (TYLENOL EXTRA STRENGTH) 500 mg tablet Take 2 tablets (1,000 mg total) by mouth as needed in the morning and 2 tablets (1,000 mg total) as needed at noon and 2 tablets (1,000 mg total) as needed in the evening for pain. 05/09/2023 Active Start: 05-09-2023 take 1 mg by mouth e very six hours acetaminophen 500 mg Tab mg tab(s), Oral, q6hr, Refills(s) 0 Start Date: 05/09/23 Status: Ordered Repeat number: 1 Start: 05-09-2023 take 2 tablets by mo [...] dose nasal spray (20 sources) Corticosteroid budesonide (UGSTAVO KEYLA AQUA) 32 mcg/actuation nasal spray 62,500 sprays. Active budesonide (Rhin ocort AQ) 32 MCG/ACT nasal spray 62,500 sprays Active Budesonide / formoterol (4 sources) Corticosteroid, beta2-Adrenergic Agonist Start: 05-28-2025 take [...] budesonide-formoterol 80 mcg-4.5 mcg/inh Inh Aer w/adapter (2 sources) Start: 06-12-2025 budesonide-formoterol 80 mcg-4.5 mcg/inh Inh [...] DROPS EYE-BOTH Daily March 31, 2023 12:00am dexamethasone 2 mg oral tablet (11 sources) Corticosteroid Start: 03-21-2025 End: 03-30-2025 take 1 tablet by mouth once daily dexAMETHasone (Decadron) 2 MG tablet Indications: Piriformis syndrome of right side Take 1 tablet by mouth once daily for 7 days. 7 tablet 1 03/21/2025 Active diclofenac sodium 0.01 mg/mg topical gel (18 sources) Nonsteroidal Anti-inflammator y Drug Start: 01-12-2025 Start: 01-12-2025 Diclofenac Sod [...] of hand dutasteride 0.5 mg oral capsule (14 sources) 5-alpha Reductase Inhibitor Start: 04-29-2025 End: 04-24-2026 take 1 capsule by mouth once daily dutasteride 0.5 mg Cap 0.5 mg = 1 cap(s), Oral, Daily, X 30 day(s), # 30 cap(s), Refills(s) 11, Pharmacy: [facility]/pharmacy #[id number], 173, cm, 04/29/25 9:39:00 EDT, Height/Length Dosing, 99, kg, 04/29/25 9:39:00 EDT, Weight Dosing Start Date: 04/29/25 Stop Date: 04/24/26 Status: Ordered Quantity: 30.0 Unit: cap(s) Repeat number: 12 eyelid cleanser combination 3 (OCUSOFT LID SCRUB PLUS TOP) (1 source) eyelid cleanser combination 3 (OCUSOFT LID SCRUB PLUS TOP) Apply topically. Active fexofenadine (11 sources) Histamine-1 Receptor Antagonist Start: 05-09-2023 Seema [...] 2023 12:00am take 1 tablet by christopher once as needed fexofenadine-pseudoephedrine (SEEMA-D 24) 180-240 mg per 24 hr tablet Take 1 tablet by mouth as needed. Active take 1 tablet by christopher twice daily [...] take 1 puff(s) by inhalation once daily zyehtnmmjlf-erewpjetd-srqgmvny (TRELEGY ELLIPTA) 100-62.5-25 mcg blister with device Inhale 1 puff once daily for 14 days. 1 each 09/24/2024 10/08/2024 Active folic acid 1 mg oral tablet (20 sources) Start: 05-09-2023 take 1 tablet by mouth once daily folic acid 1 mg Tab mg tab(s), Oral, Daily, Refills(s) 0 Start Date: 05/09/23 Status: Ordered Repeat number: 1 Start: 04-25-2018 take 1 tablet by mouth twice d aily Start: 04-25-2018 take 1-2 mg by mouth once baldomero y Folic Acid Active 1 - 2 MG PO Daily April 25, 2018 12:00am gabapentin 100 mg oral capsule (18 sources) Anti-epileptic Agent Start: 04-16-2025 End: 05-15-2026 take 1 capsule by mouth three times daily gabapentin (NEURONTIN) 100 mg capsule Indications: Lumbar radiculopathy Take 1 capsule (100 mg total) by mouth 3 (three) times a day. 90 capsule 1 04/16/2025 Active hydroCHLOROthiazide 12.5 mg oral tablet (1 source) Thiazide Diuretic take 1 tablet by mouth once daily hydroCHLOROthiazide (Microzide) 12.5 mg tablet Take 1 tablet (12.5 mg) by mouth once daily. Active hydroCHLOROthiazide 12.5 mg / lisinopril 20 mg oral tablet (20 sources) Thiazide Diuretic, Angiotensin Converting Enzyme Inhibitor Start: 09-19-2023 hydrochlorothiazide-li sinopril 12.5 mg-20 mg Tab 1 tab(s), Refill(s) 0 Start Date: 06/12/25 Status: Ordered Repeat number: 1 Start: 05-12-2019 End: 08-21-2025 take 1 tablet by mouth once daily lisinopril-hydroCHLOROthiazide (PRINZIDE,ZESTORETIC) 20-12.5 mg per tablet TAKE 1 TABLET BY MOUTH DAILY 90 tablet 1 08/21/2025 Active hydroxychloroquine sulfate 200 mg oral tablet (20 sources) Antimalarial, Antirheumatic Agent Start: 05-09-2023 take 1 mg by mouth once daily hydroxychloroquine 200 mg Tab mg tab(s), Oral, Daily, Refills(s) 0 Start Date: 05/09/23 Status: Ordered Repeat number: 1 Start: 04-25-2018 take 1 tablet by mouth twice d aily leflunomide 10 mg oral tablet (20 sources) Antirheumatic Agent Start: 04-25-2018 take 1 tablet by mouth once daily in the morning leucovorin 5 mg oral tablet (20 sources) Folate Analog Start: 04-25-2018 leucovorin (WELLCOVORIN) 5 mg tablet 12/06/2024 Active take 1 tablet by mouth once baldomero y leucovorin (Wellcovorin) 5 mg tablet Take 1 tablet (5 mg total) by mouth once daily. Take with a full glass of water. Active lidocaine 0.05 mg/mg medicated patch (18 sources) Antiarrhythmic, Amide Local Anesthetic Start: 01-12-2025 [...] Discontinued (Duplicate order) Start: 08-29-2024 End: 12-17-2024 take 1 tablet by mouth once daily 2 ml methotrexate 25 mg/ml injection (20 [...] mg oral tablet (20 sources) Corticosteroid Start: 01-30-2025 End: 03-21-2025 methylPREDNISolone (Medrol Dospak) 4 MG tablets Indications: Tenosynovitis [...] take 1 tablet by mouth once daily montelukast (SINGULAIR) 10 mg tablet TAKE 1 TABLET BY MOUTH DAILY 90 tablet 3 05/27/2025 Active nabumetone 750 mg oral tablet (20 sources) [...] DO Active naproxen 250 mg oral tablet (19 sources) Nonsteroidal Anti-inflammatory Drug Start: 02-16-2025 take [...] End: 03-21-2026 take 1 tablet by mouth in the morning primidone (MYSOLINE) 50 mg tablet 1 tablet (50 mg total). 1 po in AM 3 po at HS 02/21/2025 Active Start: 12-19-2024 End: 01-18-2025 take 0.5 tablet by mouth at bedtime primidone (Mysoline) 50 MG tablet Indications: Intention tremor Take 0.5 tablets (25 mg) by mouth at bedtime 30 tablet 11 12/19/2024 01/03/2025 Discontinued (Reorder) Refresh Dry Eye Therapy (11 sources) Start: 05-09-2023 Refresh Dry Ey e Therapy Eye-Both, QID, Refill(s) 0 Start Date: 05/09/23 Status: Ordered Repeat number: 1 Start: 05-09-2023 Refresh Dry Ey e Therapy Eye-Both, QID, Refill(s) 0 Start Date: 05/09/23 Status: Ordered simvastatin 20 mg oral tablet (20 sources) HMG-CoA Reductase Inhibitor Start: 07-19-2019 End: 05-27-2025 take 1 tablet by mouth once daily simvastatin (ZOCOR) 20 mg tablet TAKE 1 TABLET BY MOUTH DAILY 90 tablet 3 05/27/2025 Active Start: 04-25-2018 End: 07-19-2019 take 1 tablet [...] day(s), # 60 cap(s), Refills(s) 0, Pharmacy: [facility]/pharmacy #[id number], 173, cm, 09/19/23 9:41:00 EDT, Height/Length Dosing, 97.5, kg, 09/19/23 9:41:00 EDT, Weight Dosing Start Date: 01/03/24 Stop Date: 02/02/24 Status: Ordered Start: 05-09-2023 End: 06-08-2023 take 1 capsule by mouth twice daily Flomax 0.4 mg Cap 0.4 mg = 1 cap(s), Oral, BID, X 30 day(s), # 60 cap(s), Refills(s) 0, Pharmacy: [facility] [id number], 173, cm, 05/09/23 16:02:00 EDT, Height/Length Dosing, [...] for pain 30 7 April 10, 2024 January 12, 2025 12:57pm [...] at bedtime as needed for pain Hydrocodone-Acetaminophen ([place]) 5-325 mg tablet Discontinued 1 TAB PO Daily at bedtime as needed for pain 14 14 May 12, 2019 July 19, 2019 10:35am Start: 04-25-2018 End: 11-05-2018 take 1 tablet by mouth every four to six hours as needed for pain Hydrocodone-Acetaminophen ([place]) 5-325 mg tablet Discontinued 1 - 2 [...] completed., # 2 tab(s), Refills(s) 0, Pharmacy: [facility]/pharmacy #[id number], 173, cm, 04/29/25 9:39:00 EDT, Height/Length [...] 120 mL 09/24/2024 12/17/2024 Discontinued (Therapy completed) colchicine 0.6 mg oral tablet (20 sources) Start: 12-19-2023 End: 10-17-2024 take 1 tablet by mouth once daily in the morning Colchicine 0.6 mg tablet Discontinued 0.6 MG PO Every morning April 02, 2024 12:00am October 17, 2024 10:04am Start: 09-30-2023 End: 09-24-2024 take 1 capsule by mouth in the morning colchicine (MITIGARE) 0.6 mg capsule Take 1 capsule (0.6 mg total) by mouth in the morning. 09/30/2023 09/24/2024 Discontinued (Therapy completed) Colchicine 0.6 M G 5 mL Orally Active cyclobenzaprine hydrochloride 10 mg oral tablet (20 [...] 1:17pm Effervescent Potassium 25 mEq oral tablet (9 sources) Start: 09-11-2024 End: 09-06-2025 take 1 tablet by mouth twice daily Effervescent Potassium 25 mEq oral tablet 25 mEq = 1 tab(s), Oral, BID, X 90 day(s), # 180 tab(s), Refills(s) 3, Pharmacy: [facility]/pharmacy #[id number], 173, cm, 09/03/24 10:19:00 EDT, Height/Length Dosing, 98.6, kg, 09/03/24 10:19:00 EDT, Weight Dosing Start Date: 09/11/24 Stop Date: 09/06/25 Status: Ordered Quantity: 180.0 Unit: tab(s) Repeat number: 4 Start: 09-19-2023 End: 09-13-2024 take 1 tablet by mouth twice daily Effervescent Potassium 25 mEq oral tablet 25 mEq = 1 tab(s), Oral, BID, X 90 day(s), # 180 tab(s), Refills(s) 3, Pharmacy: [facility]/pharmacy #[id number], 173, cm, 09/19/23 9:41:00 [...] sprays into each nostril once daily. Active 12 hr guaiFENesin 600 mg / [...] pain., # 30 tab(s), Refills(s) 0, Pharmacy: [facility] [id number], 173, cm, 05/09/23 16:02:00 EDT, Height/Length Dosing, 97.5, kg, 05/09/23 16:02:00 EDT, Weight Dosing Start Date: 05/09/23 Status: Ordered levoFLOXacin 500 mg oral tablet (20 sources) Quinolone Antimicrobial Start: End: take 1 tablet by mouth once daily Levofloxacin 500 mg tablet Discontinued 500 MG PO Daily 03 25January 03, 2024 1:00am March 29, 2024 11:11am Methotrexate Sodium (Pf) 50 mg recon soln (13 sources) Start: 025 End: 025 Methotrexate Sodium (Pf) 50 mg recon soln [...] Discontinued (Dose adjustment) Start: 10-23-2022 End: 02-25-2025 take 1 capsule by mouth twice daily Start: 10-23-2022 take 1 mg by mouth once daily omeprazole 40 mg Cap-DR mg cap(s), Oral, Daily, Refills(s) 0 Start Date: 05/09/23 Status: Ordered Repeat number: 1 Start: 04-25-2018 End: 02-16-2025 take 2 capsules [...] kidney; Translations: [Acute kidney failure, unspecified] Onset: 05-28-2024 05-03-2023 Episodic Asthma (2 sources) Moderate persistent asthma; Translations: [Moderate persistent asthma, uncomplicated] Onset: 05-28-2025 05-28-2025 Chronic Cardiac dysrhythmias (20 sources) Multiple premature ventricular complexes; Translations: [Ventricular premature depolarization] Onset: 02-15-2025 02-16-2025 Chronic Coagulation and hemorrhagic disorders (20 sources) Lupus anticoagulant disorder; Translations: [Primary hypercoagulable state] Onset: 09-29-2022 05-28-2024 Chronic Coronary atherosclerosis and other heart disease (1 source) Atherosclerotic heart disease of [place] coronary artery without angina pectoris; Translations: [ASHD [place] W/O ANGINA PECTORIS] Onset: 03-28-2023 Chronic [...] unspecified, not intractable] Onset: 09-29-2022 05-28-2024 Chronic Headache; including migraine (3 sources) Headache; Translations: [Cervicogenic headache] Onset: 01-29-2025 07-17-2025 Episodic Hyperplasia of prostate (20 sources) Benign prostatic [...] 12-06-2024 Episodic Other aftercare (1 source) Other intermediate teacher (current) drug therapy; Translations: [OTH PENITENTIARY CURRENT DRUG THERAPY] Onset: 03-28-2023 Episodic Other aftercare (1 source) USP (current) use of aspirin; Translations: [PENITENTIARY CURRENT USE OF ASPIRIN] Onset: 03-28-2023 Episodic Other aftercare (1 source) High risk drug monitoring status; Translations: [USP (current) use of opiate analgesic] Episodic Other aftercare (3 sources) Post-discharge follow-up; Translations: [Encounter for follow-up [...] toe(s)] 08-17-2024 Episodic Other connective tissue disease (20 sources) Trochanteric bursitis; Translations: [Trochanteric bursitis, right hip] 11-09-2024 Episodic Other connective tissue disease (9 sources) Tenosynovitis; Translations: [Tenosynovitis of right lower leg] 01-30-2025 Episodic Other connective tissue disease (16 sources) Iliotibial band friction syndrome of right knee; Translations: [Iliotibial band syndrome, right leg] 02-08-2025 Episodic Other connective tissue disease (1 source) Pain of right lower leg; Translations: [Pain in right lower leg] 04-16-2025 Episodic Other diseases of bladder and urethra (3 sources) Detrusor overactivity; Translations: [Overactive bladder] Onset: 04-29-2025 Chronic Other diseases of bladder and urethra (3 sources) Overactive bladder 04-29-2025 Chronic Other diseases of kidney and ureters (1 source) Hydronephrosis with renal and ureteral calculous obstruction; Translations: [Hydronephrosis with renal and ureteral calculous obstruction] Onset: 04-25-2018 Episodic Other diseases of kidney and ureters (3 sources) Urinary tract obstruction; Translations: [Hydronephrosis with renal and ureteral calculous obstruction] Onset: 06-02-2023 Episodic Other diseases of veins and lymphatics (9 sources) Lymphedema; Translations: [Lymphedema, not elsewhere classified] 04-10-2025 Chronic Other diseases of veins and lymphatics (10 sources) Lymphedema of bilateral lower limbs; Translations: [...] 12-17-2024 Chronic Other inflammatory condition of skin (6 sources) Lupus erythematosus 01-19-2024 Chronic Other injuries [...] of breath] Episodic Other lower respiratory disease (20 sources) Dyspnea; Translations: [Shortness of breath] Onset: 10-15-2024 09-19-2024 Episodic Other lower respiratory disease (20 sources) Cough; Translations: [Cough] Onset: 09-24-2024 09-19-2024 Episodic Other nervous system disorders (20 [...] unspecified] 05-15-2025 Chronic Other nervous system disorders (2 sources) Neuropathy; Translations: [Polyneuropathy, unspecified] 07-17-2025 Chronic Other nervous system disorders (1 source) Polyneuropathy, unspecified; Translations: [Polyneuropathy, unspecified] Onset: 07-17-2025 Chronic Other nervous system disorders (20 sources) Finding of hand region; Translations: [Tremor, unspecified] Onset: 10-15-2024 07-12-2024 Episodic Other nervous system disorders (8 sources) Tremor, unspecified; Translations: [Abnormal involuntary movements] 07-12-2024 Episodic Other non-traumatic joint disorders (1 source) Pain in right knee; Translations: [Pain in joint, lower leg] 12-28-2023 Episodic Other non-traumatic joint disorders (20 sources) Hip pain; Translations: [Pain in right hip] Onset: 10-15-2024 08-27-2024 Episodic Other non-traumatic joint disorders (20 sources) Instability of right hip joint; Translations: [Other instability, right hip] 10-17-2024 Episodic Other non-traumatic joint disorders (18 sources) Effusion of right knee joint; Translations: [...] Chronic Other nutritional; endocrine; and metabolic disorders (4 sources) Severe obesity; Translations: [Class 2 severe obesity due to excess calories with serious comorbidity and body mass index (BMI) of 35.0 to 35.9 in adult ([facility])] Onset: 04-15-2023 05-28-2025 Chronic Other nutritional; [...] Onset: 07-28-2017 05-28-2024 Chronic Residual codes; unclassified (4 sources) Hypersomnia with sleep apnea; Translations: [Hypersomnia, unspecified] 07-17-2025 Chronic Residual codes; unclassified (1 source) Postprocedural state finding; Translations: [Other specified postprocedural states] Episodic Residual codes; unclassified (1 source) Other specified postprocedural states Episodic Residual codes; unclassified (19 sources) History of operative procedure on lumbar [...] cervical region] Onset: 05-28-2024 01-19-2024 Chronic Syncope (18 sources) Syncope; Translations: [Syncope and collapse] Onset: [...] [Low back pain, unspecified] Onset: 01-23-2024 Unclassified (7 sources) Patient encounter status 03-20-2024 Unclassified (7 sources) A [facility] screening has identified you as FRAIL [...] Four Ways to Beat the Frailty Risk [email or web address]-[email or web address] -ye-nrku-czd-[email or web address] ilty-[email or web address] 02-16-2025 Unclassified (1 source) tcm Onset: 02-25-2025 Unclassified (1 source) Obesity, class 1; Translations: [Obesity, class 1] Onset: 12-14-2023 Unclassified (1 source) Cough, unspecified; Translations: [Cough, unspecified] Onset: 09-19-2024 Past or Other Problems Problem Classification Problem Date Documented Da te Episodic/Chronic Calculus of urinary tract (20 sources) Calculus of ureter; Translations: [Calculus of ureter] Onset: 8 05-03-2023 Episodic Cancer; other and unspecified primary (20 sources) Malignant neoplasm of eye; Translations: [Malignant neoplasm of unspecified site of unspecified eye] Onset: 4 Resolved: 4 01-19-2024 Chronic Cancer; other and unspecified primary (20 [...] Episodic Other bone disease and musculoskeletal deformities (9 sources) Somatic dysfunction of thoracic region; Translations: [...] 9 05-28-2024 Episodic Other connective tissue disease (19 sources) Trochanteric bursitis, right hip; Translations: [Enthesopathy of hip region] Onset: 5 11-09-2024 Episodic Other connective tissue disease (2 sources) Other symptoms and signs involving the musculoskeletal system; Translations: [Other musculoskeletal symptoms referable to limbs] Onset: 5 01-29-2025 Episodic Other connective tissue disease (13 sources) Iliotibial band syndrome, right leg; Translations: [Other disorders of muscle, ligament, and fascia] Onset: 5 02-08-2025 Episodic Other diseases of kidney and ureters (20 sources) Hydronephrosis; Translations: [Unspecified hydronephrosis] Onset: 4 05-09-2023 Episodic Other gastrointestinal disorders (20 sources) Dysphagia; Translations: [Dysphagia, unspecified] Onset: 4 04-26-2018 Episodic Other injuries and conditions due to external causes (1 source) Other specified injuries of head, initial encounter; Translations: [OTH SPEC INJURIES HEAD INITIAL ENC] Onset: 2 Episodic Other lower respiratory disease (6 sources) Shortness of breath; Translations: [Shortness of breath] Onset: 4 09-19-2024 Episodic Other nervous system disorders (1 source) [...] Unclassified (1 source) Lumbar pain M54.50 Unclassified (3 sources) Onset: 5 05-28-2025 Results Test Name Value Interpretation Reference Range Facility Urology Office/Clinic Noteon 08-13-2025 Urology Office/Clinic Note Urology Office/Clinic Note Chief Complaint Difficulty urinating HPI Staff 70 year old male patient here for having pressure while urinating, difficulty urinating. Previous dx: BPH with obstruction/LUTS, incomplete bladder emptying, OAB, kidney stone. S/P cysto 06/12/25 PRW. *dutasteride 0.5 mg , flomax 0.4 mg Potassium bicarbonate 25 mEq IPSS: 22 Pressure that comes and goes in abdomen. Denies visible blood. Denies burning while urinating. PVR: 69 ml History of Present Illness I have reviewed and verified the staff HPI to be accurate for this encounter. Portions of this record may have been created with voice recognition artificial intelligence software, specifically [employer] and or [employer]. Substitutions may have occurred due to the inherent limitations of voice recognition and artificial intelligence software. Review of Systems PHQ Score Initial Depression Screen Score: 0 SCORE Physical Exam Vitals & Measurements HR: 68(Peripheral) RR: 16 BP: 115/65 HT: 173 cm HT: 68 in WT: 102 kg WT: 224.871 lb BMI: 34.08 General: Well developed, well nourished, in no acute distress. Assessment/Plan PRW 1. BPH with obstruction/lower urinary tract symptoms (N40.1: Benign prostatic hyperplasia with lower urinary tract symptoms) PSA (monitored by PCP): 04/08/23 - 1.77 IPSS 22, QoL 5 Taking dutasteride 0.5 mg QD and tamsulosin 0.4 mg QD. Denies SEs, but is having syncopal episodes which he is seeing cardiology and neurology for clearance for s/p cysto 06/12/25 - trilobar obstruction, diffuse prostatic calcifications, severe (3) trabeculation, open diverticuli Rec TURP at that time, but required cardiac clearance given syncopal episodes. Pt reports he has been cleared by cardiology, consult not reviewed - SR w/ PVCs at time of syncopal episodes. Now is requiring clearance by neuro prior to surgery. Pt presents to office today w/ with concern for worsening sxs. He does admit that he often goes most of the day w/o urinating, then urgently getting up 4+ times/night with dribbling output. Usually has better output after taking a few minutes to walk around and relax prior to voiding a second time. Denies dysuria or perineal pressure. UA today w/o signs of blood or infection and PVR is low. Advised pt/ on these results, which does bring them comfort. Pt not a candidate for inc tamsulosin dosing, given syncope. Pt/ verbalize understanding -Contact [facility] after neuro appt 08/19 to schedule TURP -cont tamsulosin, dutasteride -timed voiding -contact office for concern for UR Ordered: 1126F Pain severity quantified; no pain present Body Mass Index (BMI) documented 3008F Current [...] Urnls Dip Stick Auto w/o Microscopy POC 10652 2. Incomplete bladder emptying (R33.9: Retention of urine, unspecified) PVR today 69 ml emptying well, see #1 Ordered: 1126F Pain severity quantified; no pain present 39892 Measure Post Void residual urine and/or bladder [...] Urnls Dip Stick Auto w/o Microscopy POC 47030 3. OAB (overactive bladder) (N32.81: Overactive bladder) Wears pad daily for UUI -timed voiding during the day 4. Kidney stone (N20.0: Calculus of kidney) Electrolyte panel 10/20/23 - wnl. [facility] 01/11/24 [facility] [place] Kidneys are partially obscured, R>L. Group [...] sided stones. Taking Potassium Bicarb 25 mEq bid, tolerating w/o SEs -imaging due April 2026 -potassium bicarb Follow-up With When Contact Information FLAVIO ONEAL, Zac De Oliveira, URL [address] [facility] [facility] [place] [address]- Additional Instructions: TURP Patient Education Benign Prostatic Hyperplasia Acute Urinary Retention, Male Problem List/Past Medical History Ongoing Arthritis BPH with obstructio (more content not included)... Normal [facility] Comment on above: Result Comment: Elec tronically Signed By: FRANCIS Jimenez APRN, Daria Lechuga\.br\Date and Time Signed: 08/13/25 08:45 EDT Alanine aminotransferase [En zymatic activity/volume] in Serum or PlasmaOrdered By: Christine Sanchez on 08-07-2025 ALT [Catalytic activity/Vol] 26 U/L Normal 7-[address] [facility] Comment on above: Performed By: #### E SR #### [facility] [address] Albumin [Mass/volume] in Ser um or Plasma by Bromocresol green (BCG) dye binding methoOrdered By: Christine Sanchez on 08-07-2025 Albumin BCG dye [Mass/Vol] 4.1 g/dL 3.5-5.[address] [facility] Alkaline phosphatase [Enzyma tic activity/volume] in Serum or PlasmaOrdered By: Christine Sanchez on 08-07-2025 ALP [Catalytic activity/Vol] 87 U/L Normal 34-[address] [facility] Comment on above: Result Comment: PERF ORMED BY: [place] [address] PATHOLOGIST STUDIO DESIGNER LANIE ALVARES M.D. Performed By: #### E SR #### [facility] [address] [place] [address] Appearance of UrineOrdered B y: Christine Sanchez on 08-07-2025 Appearance (U) Clear Normal Clear [facility] Comment on above: Order Comment: Name Collection Type:: Clean-Voided Midstream Performed By: #### E SR #### [facility] [address] Aspartate aminotransferase [ Enzymatic activity/volume] in Serum or PlasmaOrdered By: Christine Sanchez on 08-07-2025 AST [Catalytic activity/Vol] 16 U/L Normal 13-[address] [facility] Comment on above: Performed By: #### E SR #### [address] Bacteria [Presence] in Urine by AutomatedOrdered By: Christine Sanchez on 08-07-2025 Bacteria Auto Ql (U) None seen [HPF] None Seen [facility] Basophils [#/volume] in Bloo d by Automated countOrdered By: Christine Sanchez on 08-07-2025 Basophils (Bld) [#/Vol] 0.1 10*3/uL Normal 0.0-0.[address] [facility] Comment on above: Performed By: #### E SR #### [address] Basophils/100 leukocytes in Blood by Automated countOrdered By: Christine Sanchez on 08-07-2025 Basophils/100 WBC (Bld) 0.6 % Normal . [facility] Comment on above: Performed By: #### E SR #### [address] Bilirubin Test strip Ql (U)O rdered By: Christine Sanchez on 08-07-2025 Bilirubin Ql (U) Negative Negative [facility] Bilirubin.total [Mass/volume ] in Serum or PlasmaOrdered By: Christine Sanchez on 08-07-2025 Bilirubin [Mass/Vol] 0.5 mg/dL Normal 0.3-1.0 [facility] Comment on above: Performed By: #### E SR #### [place] [address] [place] Calcium [Mass/volume] in Ser um or PlasmaOrdered By: Christine Sanchez on 08-07-2025 Calcium [Mass/Vol] 9.2 mg/dL Normal 8.6-10.3 [facility] Comment on above: Performed By: #### E SR #### [address] Carbon dioxide, total [Moles /volume] in Serum or PlasmaOrdered By: Christine Sanchez on 08-07-2025 CO2 [Moles/Vol] 23.9 mmol/L Normal 21.0-31.0 [facility] Comment on above: Performed By: #### E SR #### [address] Chloride [Moles/volume] in S ace or PlasmaOrdered By: Christine Sanchez on 08-07-2025 Chloride [Moles/Vol] 106 mmol/L Normal 98-107 [facility] Comment on above: Performed By: #### E SR #### [address] Color of Urine by AutoOrdere d By: Christine Sanchez on 08-07-2025 Color (U) Yellow Normal Yellow [facility] Comment on above: Order Comment: Name Collection Type:: Clean-Voided Midstream Performed By: #### E SR #### [address] Complement C3on 08-07-2025 Complement C3 125 mg/dL Normal 82-167 [facility] Comment on above: Result Comment: Perf ormed at: - [facility] [id number] Reconditioning Associate: Richy Ardon PhD, Phone: [phone] Performed By: #### C RP #### [address] Complement C4on 08-07-2025 Complement C4 13 mg/dL Normal 12-38 [facility] Comment on above: Result Comment: PERF ORMED BY: [place] [address] PATHOLOGIST STUDIO DESIGNER LANIE ALVARES M.D. Performed By: #### C RP #### [address] Complement Total (CH50)on Complement Total (CH50) 58 Normal >41 [facility] Comment on above: Result Comment: [...] out of range values. Performed at: - [facility] [id number] Reconditioning Associate: Richy Ardon PhD, Phone: [phone] PERFORMED BY: [place] [address] PATHOLOGIST STUDIO DESIGNER LANIE ALVARES M.D. Performed By: #### C RP #### [address] Complete Blood Count Auto Di ffon 08-07-2025 Mean Corpuscular HGB Conc 34.0 g/dL Normal 32.5-35.6 [facility] Comment on above: Performed By: #### E SR #### [address] NRBC% 0.2 /100{WBC} Normal 0-0.5 [facility] Comment on above: Performed By: #### E SR #### [address] White Blood Count 9.2 [CFU]/mL Normal 4.1-10.5 [facility] Comment on above: Performed By: #### E SR #### [address] Comprehensive Metabolic Pane vivek 08-07-2025 Albumin [Mass/Vol] 4.1 g/dL Normal 3.5-5.7 [facility] Comment on above: Performed By: #### E SR #### [address] GFR/1.73 sq M.predicted MDRD (S/P/Bld) [Vol rate/Area] mL/min/{1.73_m2} Normal [facility] Comment on above: Performed By: #### E SR #### [address] Creatinine [Mass/volume] in Serum or PlasmaOrdered By: Christine Sanchez on 08-07-2025 Creatinine [Mass/Vol] 0.88 mg/dL Normal 0.70-1.30 [facility] Comment on above: Performed By: #### E SR #### [address] Dipstick and Microscopicon 0 08-07-2025 Bacteria,Urine None Seen Normal None Seen [facility] Comment on above: Order Comment: Name Collection Type:: Clean-Voided Midstream Performed By: #### E SR #### [address] Bilirubin,Urine Negative Normal Negative [facility] Comment on above: Order Comment: Name Collection Type:: Clean-Voided Midstream Performed By: #### E SR #### [address] Glucose Ql (U) Normal Normal Normal [facility] Comment on above: Order Comment: Name Collection Type:: Clean-Voided Midstream Performed By: #### E SR #### [address] Hyaline Casts,Urine None Normal 0-8 [facility] Comment on above: Order Comment: Name Collection Type:: Clean-Voided Midstream Performed By: #### E SR #### [address] Mucus,Urine 1+ [LPF] Critically abnormal [facility] Comment on above: Order Comment: Name Collection Type:: Clean-Voided Midstream Result Comment: PERF ORMED BY: [place] [address] PATHOLOGIST STUDIO DESIGNER LANIE ALVARES M.D. Performed By: #### E SR #### [place] [address] [place] Nitrite,Urine Negative Normal Negative [facility] Comment on above: Order Comment: Name Collection Type:: Clean-Voided Midstream Performed By: #### E SR #### [address] Occult Blood,Urine Negative Normal Negative [facility] Comment on above: Order Comment: Name Collection Type:: Clean-Voided Midstream Performed By: #### E SR #### [address] RBC,Urine None Seen Normal 0-4 [facility] Comment on above: Order Comment: Name Collection Type:: Clean-Voided Midstream Performed By: #### E SR #### [address] Specificy [place],Urine 1.027 Normal 1.001-1.03 0 [facility] Comment on above: Order Comment: Name Collection Type:: Clean-Voided Midstream Performed By: #### E SR #### [address] Urobilinogen,Urine Normal Normal Normal [facility] Comment on above: Order Comment: Name Collection Type:: Clean-Voided Midstream Performed By: #### E SR #### [address] WBC,Urine 1-2 Normal 0-4 [facility] Comment on above: Order Comment: Name Collection Type:: Clean-Voided Midstream Performed By: #### E SR #### [address] Eosinophils [#/volume] in Bl ood by Automated countOrdered By: Christine Sanchez on 08-07-2025 Eosinophils (Bld) [#/Vol] 0.1 10*3/uL Normal 0.0-0.[address] [facility] Comment on above: Performed By: #### E SR #### [facility] [address] Eosinophils/100 leukocytes i n Blood by Automated countOrdered By: Christine Sanchez on 08-07-2025 Eosinophils/100 WBC (Bld) 1.5 % Normal . [facility] Comment on above: Performed By: #### E SR #### [address] Epithelial cells.squamous [# /area] in Urine sediment by Automated countOrdered By: Christine Sanchez on 08-07-2025 Epithelial cells.squamous Auto (Urine sed) [#/Area] N/A [facility] Erythrocyte Sedimentation Ra bruno 08-07-2025 ESR (Bld) [Velocity] 6 mm/h Normal 0-19 [facility] Comment on above: Result Comment: PERF ORMED BY: [place] [address] PATHOLOGIST STUDIO DESIGNER LANIE ALVARES M.D. Performed By: #### E SR #### [address] Erythrocyte distribution wid th [Ratio] by Automated countOrdered By: Christine Sanchez on 08-07-2025 Erythrocyte distribution width (RBC) [Ratio] 14.2 % Normal 12.0-14.[address] [facility] Comment on above: Performed By: #### E SR #### [address] Erythrocyte sedimentation ra te by Photometric methodOrdered By: Christine Sanchez on 08-07-2025 ESR Photometric method (Bld) [Velocity] 6 mm/hr 0-[address] [facility] Erythrocytes [#/area] in Uri ne sediment by Automated countOrdered By: Christine Sanchez on 08-07-2025 RBC Auto (Urine sed) [#/Area] None seen [HPF] 0-[address] [facility] Erythrocytes [#/volume] in B lood by Automated countOrdered By: Christine Sanchez on 08-07-2025 RBC (Bld) [#/Vol] 4.96 10*6/uL Normal 3.90-5.60 [facility] Comment on above: Performed By: #### E SR #### [facility] [address] Glomerular filtration rate [ Volume Rate/Area] in Serum, Plasma or Blood by CreatinineOrdered By: Christine Sanchez on 08-07-2025 Glomerular filtration rate [Volume Rate/Area] in Serum, Plasma or Blood by Creatinine > 60.0 mL/Min [facility] Glucose [Mass/volume] in Ser um or PlasmaOrdered By: Christine Sanchez on 08-07-2025 Glucose [Mass/Vol] 136 mg/dL High 70-100 [facility] Comment on above: ADA recommended refe rence rangeRandom Glucose Reference Range is dependent on time and content of last meal. Glucose of more than 200 mg/dL in a nonstressed, ambulatory subject supports the diagnosis of Diabetes Mellitus. Result Comment: [place] Glucose Reference Range is dependent on time and content of last meal. Glucose of more than 200 mg/dL in a nonstressed, ambulatory subject supports the diagnosis of Diabetes Mellitus. ADA recommended reference range Performed By: #### E SR #### [facility] [address] Glucose [Mass/volume] in Uri ne by Test stripOrdered By: Christine Sanchez on 08-07-2025 Glucose Test strip (U) [Mass/Vol] Normal mg/dL Normal [facility] Hematocrit [Volume Fraction] of Blood by Automated countOrdered By: Christine Sanchez on 08-07-2025 Hematocrit (Bld) [Volume fraction] 45.3 % Normal 38.8-50.[address] [facility] Comment on above: Performed By: #### E SR #### [facility] [address] [place] [id number] [facility] Hemoglobin Test strip Ql (U) Ordered By: Christine Sanchez on 08-07-2025 Hemoglobin Ql (U) Negative Negative [facility] Hemoglobin [Mass/volume] in BloodOrdered By: Christine Sanchez on 08-07-2025 Hemoglobin (Bld) [Mass/Vol] 15.4 g/dL Normal 13.0-17.[address] [facility] Comment on above: Performed By: #### E SR #### [place] [address] [place] Hyaline casts [#/area] in Ur ine sediment by Automated countOrdered By: Christine Sanchez on 08-07-2025 Hyaline casts Auto (Urine sed) [#/Area] None [LPF] 0-[address] [facility] Ketones [Presence] in Urine by Test stripOrdered By: Christine Sanchez on 08-07-2025 Ketones Ql (U) Negative Normal Negative [facility] Comment on above: Order Comment: Name Collection Type:: Clean-Voided Midstream Performed By: #### E SR #### [address] Leukocyte esterase [Presence ] in Urine by Test stripOrdered By: Christine Sanchez on 08-07-2025 Leukocyte esterase Test strip Ql (U) Negative Normal Negative [facility] Comment on above: Order Comment: Name Collection Type:: Clean-Voided Midstream Performed By: #### E SR #### [place] [address] [place] Leukocytes [#/area] in Urine sediment by Automated countOrdered By: Christine Sanchez on 08-07-2025 WBC Auto (Urine sed) [#/Area] 1-2 [HPF] 0-[address] [facility] Leukocytes [#/volume] correc nat for nucleated erythrocytes in Blood by Automated counOrdered By: Christine Sanchez on 08-07-2025 WBC corrected for nucl RBC Auto (Bld) [#/Vol] 9.2 10*3/uL 4.1-10.[address] [facility] Leukocytes [#/volume] in Blo od by Automated countOrdered By: Christine Sanchez on 08-07-2025 WBC (Bld) [#/Vol] 9.2 10*3/uL Normal 4.1-10.5 [facility] Comment on above: Performed By: #### E SR #### [address] [address] [place] Lymphocytes [#/volume] in Bl ood by Automated countOrdered By: Christine Sanchez on 08-07-2025 Lymphocytes (Bld) [#/Vol] 0.8 10*3/uL Low 1.00-4.[address] [facility] Comment on above: Performed By: #### E SR #### [address] Lymphocytes/100 leukocytes i n Blood by Automated countOrdered By: Christine Sanchez on 08-07-2025 Lymphocytes/100 WBC (Bld) 8.7 % Normal . [facility] Comment on above: Performed By: #### E SR #### [address] MCH [Entitic mass] by Automa nat countOrdered By: Christine Sanchez on 08-07-2025 MCH (RBC) [Entitic mass] 31.1 pg Normal 27.5-35.[address] [facility] Comment on above: Performed By: #### E SR #### [address] MCHC Auto (RBC) [Mass/Vol]Or dered By: Christine Sanchez on 08-07-2025 MCHC (RBC) [Mass/Vol] 34.0 g/dL 32.5-35.6 [facility] MCV [Entitic volume] by Auto mated countOrdered By: Christine Sanchez on 08-07-2025 MCV (RBC) [Entitic vol] 91.4 fL Normal 83.5-[address] [facility] Comment on above: Performed By: #### E SR #### [address] Monocytes [#/volume] in Bloo d by Automated countOrdered By: Christine Sanchez on 08-07-2025 Monocytes (Bld) [#/Vol] 0.8 10*3/uL Normal 0.0-0.[address] [facility] Comment on above: Performed By: #### E SR #### [address] [place] [address] [place] Monocytes/100 leukocytes in Blood by Automated countOrdered By: Christine Sanchez on 08-07-2025 Monocytes/100 WBC (Bld) 8.7 % Normal . [facility] Comment on above: Performed By: #### E SR #### [address] Mucus [Presence] in Urine by AutomatedOrdered By: Christine Sanchez on 08-07-2025 Mucus Auto Ql (U) 1+ [LPF] Abnormal [facility] Neutrophils [#/volume] in Bl ood by Automated countOrdered By: Christine Sanchez on 08-07-2025 Neutrophils (Bld) [#/Vol] 7.4 10*3/uL Normal 1.8-7.[address] [facility] Comment on above: Performed By: #### E SR #### [address] Neutrophils/100 leukocytes i n Blood by Automated countOrdered By: Christine Sanchez on 08-07-2025 Neutrophils/100 WBC (Bld) 80.5 % Normal . [facility] Comment on above: Performed By: #### E SR #### [address] Nitrite Test strip Ql (U)Ord ered By: Christine Sanchez on 08-07-2025 Nitrite Ql (U) Negative Negative [facility] No Panel InformationOrdered By: Christine Sanchez on 08-07-2025 Pharmacy Creatinine Clearance (Chem N/A [facility] Nucleated erythrocytes [Pres ence] in Blood by Automated countOrdered By: Christine Sanchez on 08-07-2025 Nucleated RBC Auto Ql (Bld) 0.2 /100{WBC} 0-0.[address] [facility] Platelet mean volume [Entiti c volume] in Blood by Automated countOrdered By: Christine Sanchez on 08-07-2025 Platelet mean volume (Bld) [Entitic vol] 8.7 fL Normal 6.6-10.[address] [facility] Comment on above: Performed By: #### E SR #### [facility] [address] [place] [address] [place] Platelets [#/volume] in Bloo d by Automated countOrdered By: Christine Sanchez on 08-07-2025 Platelets (Bld) [#/Vol] 190 10*3/uL Normal 150-[address] [facility] Comment on above: Performed By: #### E SR #### [place] [address] [place] Potassium [Moles/volume] in Serum or PlasmaOrdered By: Christine Sanchez on 08-07-2025 Potassium [Moles/Vol] 4.2 mmol/L Normal 3.5-5.1 [facility] Comment on above: Performed By: #### E SR #### [address] Protein [Mass/volume] in Ser um or PlasmaOrdered By: Christine Sanchez on 08-07-2025 Protein [Mass/Vol] 6.0 g/dL Low 6.4-8.9 [facility] Comment on above: Performed By: #### E SR #### [address] Protein [Mass/volume] in Uri ne by Test stripOrdered By: Christine Sanchez on 08-07-2025 Protein (U) [Mass/Vol] 20 mg/dL Normal Negative [facility] Comment on above: Order Comment: Name Collection Type:: Clean-Voided Midstream Performed By: #### E SR #### [address] Serum globulin measurement b y calculation (mass/volume)Ordered By: Christine Sanchez on 08-07-2025 Globulin (S) [Mass/Vol] 1.9 g/dL Normal [facility] Comment on above: Performed By: #### E SR #### [address] Serum or plasma albumin/glob ulin mass ratioOrdered By: Christine Sanchez on 08-07-2025 Albumin/Globulin [Mass ratio] 2.2 {ratio} Normal [facility] Comment on above: Performed By: #### E SR #### [facility] [address] Serum or plasma anion gap de terminationOrdered By: Christine Sanchez on 08-07-2025 Anion gap [Moles/Vol] 10.3 mmol/L Normal 6.0-15.0 [facility] Comment on above: Performed By: #### E SR #### [address] Serum or plasma complement C 3 measurement (mass/volume)Ordered By: Christine Sanchez on 08-07-2025 Complement C3 [Mass/Vol] 125 mg/dL 82-[address] [facility] Comment on above: Performed at: [place] [id number] Director: Richy Ardon PhD, Phone: [phone] Serum or plasma complement C 4 measurement (mass/volume)Ordered By: Christine Sanchez on 08-07-2025 Complement C4 [Mass/Vol] 13 mg/dL 12-[address] [facility] Sodium [Moles/volume] in Ser um or PlasmaOrdered By: Christine Sanchez on 08-07-2025 Sodium [Moles/Vol] 136 mmol/L Normal 136-145 [facility] Comment on above: Performed By: #### E SR #### [facility] [address] [place] [address] Specific gravity Test strip (U) [Rel density]Ordered By: Christine Sanchez on 08-07-2025 Specific gravity (U) [Rel density] 1.027 1.001-1.[address] [facility] Urea nitrogen [Mass/volume] in Serum or PlasmaOrdered By: Christine Sanchez on 08-07-2025 Urea nitrogen [Mass/Vol] 23 mg/dL Normal 7-[address] [facility] Comment on above: Performed By: #### E SR #### [address] Urobilinogen Test strip (U) [Mass/Vol]Ordered By: Christine Sanchez on 08-07-2025 Urobilinogen (U) [Mass/Vol] Normal mg/dL Normal [facility] pH of Urine by Test stripOrd ered By: Christine Sanchez on 08-07-2025 pH (U) 5.5 [pH] Normal 5.0-9.[address] [facility] Comment on above: Order Comment: Name Collection Type:: Clean-Voided Midstream Performed By: #### E SR #### [place] [id number] [facility] CA tilt table teston 025 CT tilt table test [facility] [place] [address] Cardiology Report Signed Patient: Valentin Torre MR#: [id number] [birth year] : 1955 Acct:[id number] Age/Sex: 70 / M ADM Date: 07/24/25 Loc: Room: Type: [facility] Attending Dr: Melanie Trujillo DO Copies to: Kaitlyn Troy MD Ordering Provider: Kaitlyn Troy MD Date of Service: 07/24/25 CA/CA tilt table test: syncope/near syncope REFERRING PHYSICIAN: Dr. Trujillo PROCEDURE: Tilt table test. INDICATION: Recurrent episodes of lightheadedness, dizziness, and syncope. PROCEDURE: The patient underwent standard head-up to table test. The patient received a total of 250 mL of normal saline. Then, continuous blood pressure, ultrasound, and heart rate monitoring was established. The patient was tilted to the upright position for 30 minutes, during which, he demonstrated appropriate and physiologic hemodynamic response to tilt maneuver. Then sublingual nitroglycerin was administered and the patient was monitored for an additional 15 minutes, during which also he demonstrated appropriate and hemodynamic response to nitroglycerin administration. No symptoms were recreated. His monitoring strips showed occasional PVCs throughout the procedure. CONCLUSION: 1. Negative tilt table test. 2. Physiologic hemodynamic response to tilt maneuver and nitroglycerin administration. 3. Few PVCs noted throughout the test. Transcribed By: REMY 07/25/25 0726 Dictated By: Kaitlyn Troy MD 07/24/25 1101 Signed By: 07/25/25 0948 Normal [facility] C reactive protein [Mass/vol ume] in Serum or PlasmaOrdered By: Shabnam Connell on 07-17-2025 CRP [Mass/Vol] < 0.5 mg/dL 0.0-0.[address] [facility] C-Reactive Proteinon 025 CRP [Mass/Vol] mg/L Normal 0.0-0.5 [facility] Comment on above: Result Comment: PERF ORMED BY: [place] [address] PATHOLOGIST STUDIO DESIGNER LANIE ALVARES M.D. Performed By: #### C RP #### [address] Erythrocyte Sedimentation Ra bruno 07-17-2025 ESR (Bld) [Velocity] 3 mm/h Normal 0-19 [facility] Comment on above: Result Comment: PERF ORMED BY: [place] [address] PATHOLOGIST STUDIO DESIGNER LANIE ALVARES M.D. Performed By: #### E SR #### [address] Erythrocyte sedimentation ra te by Photometric methodOrdered By: Shabnam Connlel on 07-17-2025 ESR Photometric method (Bld) [Velocity] 3 mm/hr 0-[address] [facility] Rheumatoid Factoron 07-17-20 25 Rheumatoid Factor <10.0 Normal <14.0 [facility] Comment on above: Result Comment: Perf ormed at: - [facility] [address] [id number] Reconditioning Associate: Richy Ardon PhD, Phone: [phone] PERFORMED BY: [place] [address] PATHOLOGIST STUDIO DESIGNER LANIE ALVARES M.D. Performed By: #### R A #### [facility] , Serum Sjogrens syndrome-A ex tractable nuclear antibody assay (units/volume)Ordered By: Shabnameunice Connell on 07-17-2025 Sjogrens syndrome-A extractable nuclear Ab Qn (S) 0.2 AI 0.0-0.[address] [facility] Serum Sjogrens syndrome-B ex tractable nuclear antibody assay (units/volume)Ordered By: Shabnameunice Connell on 07-17-2025 Sjogrens syndrome-B extractable nuclear Ab Qn (S) 0.2 AI 0.0-0.[address] [facility] Comment on above: Performed at: [facility] [address] [id number] Director: Richy Ardon PhD, Phone: [phone] Serum or plasma rheumatoid f actor measurement (units/volume)Ordered By: Shabnam Connell on 07-17-2025 Rheumatoid factor Qn [IU]/mL <14.0 [facility] Comment on above: Performed at: [facility] [address] [id number] Director: Richy Ardon PhD, Phone: [phone] Sjogrens Anti-SSA/SSBon 06-22 SS-A/Ro Sjogrens Antibody 0.2 Normal 0.0-0.9 [facility] Comment on above: Performed By: #### S SCOTT #### [facility] , SS-B/La Sjogrens Antibody 0.2 Normal 0.0-0.9 [facility] Comment on above: Result Comment: Perf ormed at: [facility] [address] [id number] Reconditioning Associate: Richy Ardon PhD, Phone: [phone] PERFORMED BY: [address] [address] PATHOLOGIST STUDIO DESIGNER LANIE ALVARES M.D. Performed By: #### S SCOTT #### [facility] , US carotid doppler BIon -0 US carotid doppler BI [facility] [place] [address] Ultrasound Report Signed Patient: Valentin Torre MR#: [id number] [birth year] : 1955 Acct:[id number] Age/Sex: 70 / M ADM Date: 06/25/25 Loc: Room: Type: [facility] Attending Dr: Melanie Trujillo DO Ordering [...] Griffin M.D. 06/26/2025 8:47 AM Dictation Location: [place] [address] Tech: Мария Artis Transcribed By: MARV 06/26/2547 Dictated By: Audie Griffin MD 06/26/2545 Signed By: 06/26/2547 Normal [facility] ECG 12 Leadon 06-20-2025 Normal sinus rhythm, low voltage QRS, nonspecific ST-T wave abnormality, PVCs, abnormal ECG [facility] Work Phone: [facility] Work Phone: Ambulatory Visit Summaryon 0 [...] Dry Eye Therapy) omeprazole (omeprazole 40 mg Guzman-) prednisoLONE primidone (primidone 50 mg Tab) simvastatin [...] AM EDT With: Where: [facility] [address] [id number]- Tuesday 8:00 AM EDT With: Zac MUNIZ MD Where: [facility] [address] [address]- You Need to Schedule the Following Appointments Follow Up with Zac MUNIZ MD, URL When: Where: [facility] [address] [place] [phone] Medications What How Much When Why Instructions [...] Unchanged oc (more content not included)... Normal [facility] Urology Office/Clinic Noteon 06-12-2025 Urology Office/Clinic Note Urology Office/Clinic Note Chief Complaint cystoscopy HPI Staff Cysto ABX TAKEN History of Present Illness Tests reviewed: none I have reviewed the previous health record information and history for this patient from Dr. uMniz. I have reviewed and verified the staff [...] Electrolyte panel 10/20/23 - wnl. [facility] 01[place]11[place]24 [facility] [place] Kidneys are partially obscured, R>L. Group [...] Contact Information FLAVIO ONEAL, Zac De Oliveira, [facility] [address] [place] [phone] Additional Instructions: sched TURP Patient Education Transurethral [...] bladder) Osteoarthri (more content not included)... Normal [facility] Comment on above: Result [...] Where: [facility] [address], [place] [address]- Medications What How Much When Why Instructions New ciprofloxacin (Cipro 500 mg Tab) 1 Tablets By Mouth As Directed Take one tab the day before the procedure. Then take the 2nd tab after the procedure has been completed. Pickup at [facility]/pharmacy #[id number] New dutasteride (dutasteride 0.5 mg Cap) 1 Capsules By Mouth Every day Duration: 30 Days Refills: 11 Pickup at [facility]/pharmacy #7997 Unchanged potassium bicarbonate (Effervescent Potassium 25 [...] or concerns Unchanged omeprazole (omeprazole 40 mg Guzman-) By Mouth Every day Contact prescribing physician [...] or concerns Pharmacy Information [id number]: [address], [place] [phone] Allergies cephalexin (Unknown) oxyCODONE (Hallucinations) sulfa drugs (Unknown) Problems Ongoing - Any problem that you are currently receiving treatment for. 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 Normal [facility] Urology Office/Clinic Noteon 04-29-2025 Urology Office/Clinic Note Urology Office/Clinic Note Chief Complaint 6 month follow up HPI Staff 6 month f/u with [facility] done 04/22/25 [facility]. S/P right ESWL 10/25/24 Dx: kidney stones [...] Electrolyte panel 10/20/23 - wnl. [facility] 01/11/24 [facility] [place] Kidneys are partially obscured, R>L. Group [...] 0.5 mg qd. SEs discussed. Sent to [facility]. -Will schedule cysto. The risks and benefits for cystoscopy have been discussed. The risks include bleeding, infection, and irritation of the bladder and urinary channel, among others. The patient, after being informed of procedural details and after questions have been answered, wishes to proceed. Full informed consent has been obtained. Will order Local anesthesia. Prophylactic abx sent to [facility]. 3. OAB (overactive bladder) (N32.81: Overactive bladder) PVR 108 cc. Wears a pad daily for UUI. See #2. -Cysto above Follow-up With When Contact Information FLAVIO ONEAL, Zac De Oliveira, URL [facility] [address], [place] [address]- Additional Instructions: sched cysto Patient Education Cystoscopy [...] Daily prednisoLONE (more content not included)... Normal [facility] Comment on above: Result Comment: Elec tronically Signed By: Zac MUNIZ MD\.br\Date and Time Signed: 04/29/25 10:04 EDT\.br\Electronically Co-Signed By: Teena Stanley.br\Date and Time Co-Signed: 04/29/25 10:03 EDT Alanine aminotransferase [En zymatic activity/volume] in Serum or PlasmaOrdered By: Christine Sanchez on 04-18-2025 ALT [Catalytic activity/Vol] Alanine aminotransferase [Enzymatic activity/volume] in Serum or Plasma [facility] ALT [Catalytic activity/Vol] 38 U/L Normal [facility] Comment on above: Performed By: #### A DDONUAPLUS, ESR, DIFF CBC, CMP #### [address] #### CH50, C4, C3 #### [facility] , Albumin [Mass/volume] in Ser um or Plasma by Bromocresol green (BCG) dye binding methoOrdered By: Christine Sanchez on 04-18-2025 Albumin BCG dye [Mass/Vol] Albumin [Mass/volume] in Serum or Plasma by Bromocresol green (BCG) dye binding metho 3.5-5.[address] [facility] Albumin BCG dye [Mass/Vol] 4.1 g/dL 3.5-5.[address] [facility] Alkaline phosphatase [Enzyma tic activity/volume] in Serum or PlasmaOrdered By: Christine Sanchez on 04-18-2025 ALP [Catalytic activity/Vol] Alkaline phosphatase [Enzymatic activity/volume] in Serum or Plasma 34- [facility] ALP [Catalytic activity/Vol] 73 U/L Normal [facility] Comment on above: Result Comment: PERF ORMED BY: [place] [address] PATHOLOGIST STUDIO DESIGNER LANIE ALVARES M.D. Performed By: #### A DDONUAPLUS, ESR, DIFF CBC, CMP #### [address] #### CH50, C4, C3 #### [facility] , Appearance of UrineOrdered B y: Christine Sanchez on 04-18-2025 Appearance (U) Urine appearance Clear [facility] Appearance (U) Clear Normal Clear [facility] Comment on above: Order Comment: Name Collection Type:: Clean-Voided Midstream Performed By: #### A DDONUAPLUS, ESR, DIFF CBC, CMP #### [facility] [address] [place] [address] [place] #### CH50, C4, C3 #### [facility] , Aspartate aminotransferase [ Enzymatic activity/volume] in Serum or PlasmaOrdered By: Christine Sanchez on 04-18-2025 AST [Catalytic activity/Vol] Aspartate aminotransferase [Enzymatic activity/volume] in Serum or Plasma [facility] AST [Catalytic activity/Vol] 19 U/L Normal - [facility] Comment on above: Performed By: #### A DDONUAPLUS, ESR, DIFF CBC, CMP #### [facility] [address] [place] [address] [place] #### CH50, C4, C3 #### [facility] , Bacteria [Presence] in Urine by AutomatedOrdered By: Christine Sanchez on 04-18-2025 Bacteria Auto Ql (U) Bacteria [Presence] in Urine by Automated None Seen [facility] Bacteria Auto Ql (U) Rare [HPF] None Seen [facility] Basophils Auto (Bld) [#/Vol] Ordered By: Christine Sanchez on 04-18-2025 Basophils (Bld) [#/Vol] Automated basophil count [facility] Basophils (Bld) [#/Vol] N/A [facility] Basophils/100 WBC Auto (Bld) Ordered By: Christine Sanchez on 04-18-2025 Basophils/100 WBC (Bld) Automated basophil % [facility] Basophils/100 WBC (Bld) N/A [facility] Basophils/100 WBC Manual cnt (Bld)Ordered By: Christine Sanchez on 04-18-2025 Basophils/100 WBC (Bld) Basophils/100 leukocytes in Blood by Manual count 0-[address] [facility] Basophils/100 leukocytes in Blood by Manual countOrdered By: Christine Sanchez on 04-18-2025 Basophils/100 WBC (Bld) 0 % Normal 0-[address] [facility] Comment on above: Performed By: #### A DDONUAPLUS, ESR, DIFF CBC, CMP #### [facility] [address] [place] [address] #### CH50, C4, C3 #### [facility] , Bilirubin Test strip Ql (U)O rdered By: Christine Sanchez on 04-18-2025 Bilirubin Ql (U) Bilirubin.total [Pre sence] in Urine by Test strip Negative [facility] Bilirubin Ql (U) Negative Negative [facility] Bilirubin.total [Mass/volume ] in Serum or PlasmaOrdered By: Christine Sanchez on 04-18-2025 Bilirubin [Mass/Vol] Bilirubin.total [Mass/volume] in Serum or Plasma 0.3-1.[address] [facility] Bilirubin [Mass/Vol] 0.4 mg/dL Normal 0.3-1.0 [facility] Comment on above: Performed By: #### A DDONUAPLUS, ESR, DIFF CBC, CMP #### [place] [address] [place] #### CH50, C4, C3 #### [facility] , Calcium [Mass/volume] in Ser um or PlasmaOrdered By: Christine Sanchez on 04-18-2025 Calcium [Mass/Vol] Calcium [Mass/volume ] in Serum or Plasma 8.6-10.[address] [facility] Calcium [Mass/Vol] 8.7 mg/dL Normal 8.6-10.3 [facility] Comment on above: Performed By: #### A DDONUAPLUS, ESR, DIFF CBC, CMP #### [place] [address] [place] #### CH50, C4, C3 #### [facility] , Carbon dioxide, total [Moles /volume] in Serum or PlasmaOrdered By: Christine Sanchez on 04-18-2025 CO2 [Moles/Vol] Carbon dioxide, tota l [Moles/volume] in Serum or Plasma 21.0-31.[address] [facility] CO2 [Moles/Vol] 23.0 mmol/L Normal 21.0-31.0 [facility] Comment on above: Performed By: #### A DDONUAPLUS, ESR, DIFF CBC, CMP #### [facility] [address] [place] [address] [place] #### CH50, C4, C3 #### [facility] , Chloride [Moles/volume] in S ace or PlasmaOrdered By: Christine Sanchez on 04-18-2025 Chloride [Moles/Vol] Chloride [Moles/vol ume] in Serum or Plasma 98-[address] [facility] Chloride [Moles/Vol] 105 mmol/L Normal 98-107 [facility] Comment on above: Performed By: #### A DDONUAPLUS, ESR, DIFF CBC, CMP #### [place] [address] [place] #### CH50, C4, C3 #### [facility] , Color Auto (U)Ordered By: Marianna Arellano on 04-18-2025 Color (U) Color of Urine by Auto Yellow [facility] Color of Urine by AutoOrdere d By: Christine Sanchez on 04-18-2025 Color (U) Yellow Normal Yellow [facility] Comment on above: Order Comment: Name Collection Type:: Clean-Voided Midstream Performed By: #### A DDONUAPLUS, ESR, DIFF CBC, CMP #### [place] [address] [place] #### CH50, C4, C3 #### [facility] , Complement C3on 04-18-2025 Complement C3 121 mg/dL Normal 82-167 [facility] Comment on above: Result Comment: Perf ormed at: - [facility] [address] [id number] Reconditioning Associate: Richy Ardon PhD, Phone: [phone] Performed By: #### H S TROP #### [address] Complement C4on 04-18-2025 Complement C4 14 mg/dL Normal 12-38 [facility] Comment on above: Result Comment: PERF ORMED BY: [place] [address] PATHOLOGIST STUDIO DESIGNER LANIE ALVARES M.D. Performed By: #### H S TROP #### [address] Complement Total (CH50)on Complement Total (CH50) 58 Normal >41 [facility] Comment on above: Result Comment: [...] out of range values. Performed at: - [facility] [id number] Reconditioning Associate: Richy Ardon PhD, Phone: [phone] PERFORMED BY: [place] [address] PATHOLOGIST STUDIO DESIGNER LANIE ALVARES M.D. Performed By: #### H S TROP #### [address] Comprehensive Metabolic Pane vivek 04-18-2025 Albumin [Mass/Vol] 4.1 g/dL Normal 3.5-5.7 [facility] Comment on above: Performed By: #### A DDONUAPLUS, ESR, DIFF CBC, CMP #### [address] #### CH50, C4, C3 #### [facility] , GFR/1.73 sq M.predicted MDRD (S/P/Bld) [Vol rate/Area] mL/min/{1.73_m2} Normal [facility] Comment on above: Performed By: #### A DDONUAPLUS, ESR, DIFF CBC, CMP #### [address] #### CH50, C4, C3 #### [facility] , Creatinine [Mass/volume] in Serum or PlasmaOrdered By: Christine Sanchez on 04-18-2025 Creatinine [Mass/Vol] Creatinine [Mass/v olume] in Serum or Plasma 0.70-1.[address] [facility] Creatinine [Mass/Vol] 0.90 mg/dL Normal 0.70-1.30 [facility] Comment on above: Performed By: #### A DDONUAPLUS, ESR, DIFF CBC, CMP #### [address] #### CH50, C4, C3 #### [facility] , Diff and CBCon 04-18-2025 Mean Corpuscular HGB Conc 34.8 g/dL Normal 32.5-35.6 [facility] Comment on above: Performed By: #### A DDONUAPLUS, ESR, DIFF CBC, CMP #### [place] [address] [place] #### CH50, C4, C3 #### [facility] , Metamyelocytes 1 % High 0-0 [facility] Comment on above: Performed By: #### A DDONUAPLUS, ESR, DIFF CBC, CMP #### [address] #### CH50, C4, C3 #### [facility] , Myelocytes 3 % High 0-0 [facility] Comment on above: Performed By: #### A DDONUAPLUS, ESR, DIFF CBC, CMP #### [place] [address] [place] #### CH50, C4, C3 #### [facility] , Platelet Estimate Normal Normal Normal [facility] Comment on above: Performed By: #### A DDONUAPLUS, ESR, DIFF CBC, CMP #### [place] [address] [place] #### CH50, C4, C3 #### [facility] , Platelet Morphology Normal Normal Normal [facility] Comment on above: Performed By: #### A DDONUAPLUS, ESR, DIFF CBC, CMP #### [address] #### CH50, C4, C3 #### [facility] , Dipstick and Microscopicon 0 04-18-2025 Bacteria,Urine Rare Normal None Seen [facility] Comment on above: Order Comment: Name Collection Type:: Clean-Voided Midstream Performed By: #### A DDONUAPLUS, ESR, DIFF CBC, CMP #### [address] #### CH50, C4, C3 #### [facility] , Bilirubin,Urine Negative Normal Negative [facility] Comment on above: Order Comment: Name Collection Type:: Clean-Voided Midstream Performed By: #### A DDONUAPLUS, ESR, DIFF CBC, CMP #### [address] #### CH50, C4, C3 #### [facility] , Glucose Ql (U) Normal Normal Normal [facility] [facility] Comment on above: Order Comment: Name Collection Type:: Clean-Voided Midstream Performed By: #### A DDONUAPLUS, ESR, DIFF CBC, CMP #### [address] #### CH50, C4, C3 #### [facility] , Hyaline Casts,Urine 0-8 Normal 0-8 [facility] Comment on above: Order Comment: Name Collection Type:: Clean-Voided Midstream Performed By: #### A DDONUAPLUS, ESR, DIFF CBC, CMP #### [address] #### CH50, C4, C3 #### [facility] , Mucus,Urine 4+ Critically abnormal [facility] Comment on above: Order Comment: Name Collection Type:: Clean-Voided Midstream Result Comment: PERF ORMED BY: [place] [address] PATHOLOGIST STUDIO DESIGNER LANIE ALVARES M.D. Performed By: #### A DDONUAPLUS, ESR, DIFF CBC, CMP #### [address] #### CH50, C4, C3 #### [facility] , Nitrite,Urine Negative Normal Negative [facility] Comment on above: Order Comment: Name Collection Type:: Clean-Voided Midstream Performed By: #### A DDONUAPLUS, ESR, DIFF CBC, CMP #### [address] #### CH50, C4, C3 #### [facility] , Occult Blood,Urine Negative Normal Negative [facility] Comment on above: Order Comment: Name Collection Type:: Clean-Voided Midstream Performed By: #### A DDONUAPLUS, ESR, DIFF CBC, CMP #### [address] #### CH50, C4, C3 #### [facility] , RBC,Urine 1-2 Normal 0-4 [facility] Comment on above: Order Comment: Name Collection Type:: Clean-Voided Midstream Performed By: #### A DDONUAPLUS, ESR, DIFF CBC, CMP #### [address] #### CH50, C4, C3 #### [facility] , Specificy [place],Urine 1.027 Normal 1.001-1.03 0 [facility] Comment on above: Order Comment: Name Collection Type:: Clean-Voided Midstream Performed By: #### A DDONUAPLUS, ESR, DIFF CBC, CMP #### [address] #### CH50, C4, C3 #### [facility] , Urobilinogen,Urine Normal Normal Normal [facility] Comment on above: Order Comment: Name Collection Type:: Clean-Voided Midstream Performed By: #### A DDONUAPLUS, ESR, DIFF CBC, CMP #### [address] #### CH50, C4, C3 #### [facility] , WBC,Urine 1-2 Normal 0-4 [facility] Comment on above: Order Comment: Name Collection Type:: Clean-Voided Midstream Performed By: #### A DDONUAPLUS, ESR, DIFF CBC, CMP #### [place] [address] [place] #### CH50, C4, C3 #### [facility] , Eosinophils Auto (Bld) [#/Vo l]Ordered By: Christine Sanchez on 04-18-2025 Eosinophils (Bld) [#/Vol] Automated eosinophil count [facility] Eosinophils (Bld) [#/Vol] N/A [facility] Eosinophils/100 WBC Auto (Bl d)Ordered By: Christine Sanchez on 04-18-2025 Eosinophils/100 WBC (Bld) Automated eosinophil % [facility] Eosinophils/100 WBC (Bld) N/A [facility] Eosinophils/100 WBC Manual c nt (Bld)Ordered By: Christine Sanchez on 04-18-2025 Eosinophils/100 WBC (Bld) Eosinophils/100 leukocytes in Blood by Manual count Low 1-[address] [place] [address] Eosinophils/100 leukocytes i n Blood by Manual countOrdered By: Christine Sanchez on 04-18-2025 Eosinophils/100 WBC (Bld) 0 % Low 1-[address] [facility] Comment on above: Performed By: #### A DDONUAPLUS, ESR, DIFF CBC, CMP #### [place] [address] [place] #### CH50, C4, C3 #### [facility] , Epithelial cells.squamous [# /area] in Urine sediment by Automated countOrdered By: Christine Sanchez on 04-18-2025 Epithelial cells.squamous Auto (Urine sed) [#/Area] Epithelial cells.squamous [#/area] in Urine sediment by Automated count [facility] Epithelial cells.squamous Auto (Urine sed) [#/Area] N/A [facility] Erythrocyte Sedimentation Ra bruno 04-18-2025 ESR (Bld) [Velocity] 4 mm/h Normal 0-19 [facility] Comment on above: Result Comment: PERF ORMED BY: [place] [address] PATHOLOGIST STUDIO DESIGNER LANIE ALVARES M.D. Performed By: #### A DDONUAPLUS, ESR, DIFF CBC, CMP #### [address] #### CH50, C4, C3 #### [facility] , Erythrocyte distribution wid th Auto (RBC) [Ratio]Ordered By: Christine Sanchez on 04-18-2025 Erythrocyte distribution width (RBC) [Ratio] Erythrocyte distribution width [Ratio] by Automated count High 12.0-14.[address] [facility] Erythrocyte distribution wid th [Ratio] by Automated countOrdered By: Christine Sanchez on 04-18-2025 Erythrocyte distribution width (RBC) [Ratio] 14.9 % High 12.0-14.[address] [facility] Comment on above: Performed By: #### A DDONUAPLUS, ESR, DIFF CBC, CMP #### [facility] [address] [place] [address] [place] #### CH50, C4, C3 #### [facility] , Erythrocyte morphology findi ng [Identifier] in BloodOrdered By: Christine Sanchez on 04-18-2025 RBC morphology finding Nom (Bld) RBC morphology Normal [facility] RBC morphology finding Nom (Bld) Normal Normal Normal [facility] Comment on above: Performed By: #### A DDONUAPLUS, ESR, DIFF CBC, CMP #### [facility] [address] [place] [address] #### CH50, C4, C3 #### [facility] , Erythrocyte sedimentation ra te by Photometric methodOrdered By: Christine Sanchez on 04-18-2025 ESR Photometric method (Bld) [Velocity] Erythrocyte sedimentation rate by Photometric method 0- [facility] ESR Photometric method (Bld) [Velocity] 4 mm/hr [address] [facility] Erythrocytes [#/area] in Uri ne sediment by Automated countOrdered By: Christine Sanchez on 04-18-2025 RBC Auto (Urine sed) [#/Area] Erythrocytes [#/area] in Urine sediment by Automated count 0- [facility] RBC Auto (Urine sed) [#/Area] 1-2 [HPF] 0- [facility] Erythrocytes [#/volume] in B lood by Automated countOrdered By: Christine Sanchez on 04-18-2025 RBC (Bld) [#/Vol] 5.01 10*6/uL Normal 3.90-5.60 [facility] Comment on above: Performed By: #### A DDONUAPLUS, ESR, DIFF CBC, CMP #### [facility] [address] #### CH50, C4, C3 #### [facility] , Globulin Calc (S) [Mass/Vol] Ordered By: Christine Sanchez on 04-18-2025 Globulin (S) [Mass/Vol] Serum globulin measurement by calculation (mass/volume) [facility] Glucose [Mass/volume] in Ser um or PlasmaOrdered By: Christine Sanchez on 04-18-2025 Glucose [Mass/Vol] Glucose [Mass/volume ] in Serum or Plasma High 70-[address] [facility] Comment on above: ADA recommended refe rence rangeRandom Glucose Reference Range is dependent on time and content of last meal. Glucose of more than 200 mg/dL in a nonstressed, ambulatory subject supports the diagnosis of Diabetes Mellitus. Glucose [Mass/Vol] 110 mg/dL High 70-100 [facility] Comment on above: ADA recommended refe rence rangeRandom Glucose Reference Range is dependent on time and content of last meal. Glucose of more than 200 mg/dL in a nonstressed, ambulatory subject supports the diagnosis of Diabetes Mellitus. Result Comment: [place] Glucose Reference Range is dependent on time and content of last meal. Glucose of more than 200 mg/dL in a nonstressed, ambulatory subject supports the diagnosis of Diabetes Mellitus. ADA recommended reference range Performed By: #### A DDONUAPLUS, ESR, DIFF CBC, CMP #### [place] [address] [place] #### CH50, C4, C3 #### [facility] , Glucose [Mass/volume] in Uri ne by Test stripOrdered By: Christine Sanchez on 04-18-2025 Glucose Test strip (U) [Mass/Vol] Glucose [Mass/volume] in Urine by Test strip Normal [facility] Glucose Test strip (U) [Mass/Vol] Normal mg/dL Normal [facility] Hematocrit Auto (Bld) [Volum e fraction]Ordered By: Christine Sanchez on 04-18-2025 Hematocrit (Bld) [Volume fraction] Hematocrit [Volume Fraction] of Blood by Automated count 38.8-50.[address] [facility] Hematocrit [Volume Fraction] of Blood by Automated countOrdered By: Christine Sanchez on 04-18-2025 Hematocrit (Bld) [Volume fraction] 45.5 % Normal 38.8-50.[address] [facility] Comment on above: Performed By: #### A DDONUAPLUS, ESR, DIFF CBC, CMP #### [place] [address] [place] #### CH50, C4, C3 #### [facility] , Hemoglobin Test strip Ql (U) Ordered By: Christine Sanchez on 04-18-2025 Hemoglobin Ql (U) Hemoglobin [Presence ] in Urine by Test strip Negative [facility] Hemoglobin Ql (U) Negative Negative [facility] Hemoglobin [Mass/volume] in BloodOrdered By: Christine Sanchez on 04-18-2025 Hemoglobin (Bld) [Mass/Vol] Hemoglobin [Mass/volume] in Blood 13.0-17.[address] [facility] Hemoglobin (Bld) [Mass/Vol] 15.8 g/dL Normal 13.0-17.[address] [facility] Comment on above: Performed By: #### A DDONUAPLUS, ESR, DIFF CBC, CMP #### [place] [address] [place] #### CH50, C4, C3 #### [facility] , Hyaline casts [#/area] in Ur ine sediment by Automated countOrdered By: Christine Sanchez on 04-18-2025 Hyaline casts Auto (Urine sed) [#/Area] Hyaline casts [#/area] in Urine sediment by Automated count 0-[address] [facility] Hyaline casts Auto (Urine sed) [#/Area] 0-8 [LPF] 0-[address] [facility] Ketones Test strip Ql (U)Ord ered By: Christine Sanchez on 04-18-2025 Ketones Ql (U) Ketones [Presence] i n Urine by Test strip Negative [facility] Ketones [Presence] in Urine by Test stripOrdered By: Christine Sanchez on 04-18-2025 Ketones Ql (U) Negative Normal Negative [facility] Comment on above: Order Comment: Name Collection Type:: Clean-Voided Midstream Performed By: #### A DDONUAPLUS, ESR, DIFF CBC, CMP #### [facility] [address] [place] [address] [place] #### CH50, C4, C3 #### [facility] , Leukocyte esterase [Presence ] in Urine by Test stripOrdered By: Christine Sanchez on 04-18-2025 Leukocyte esterase Test strip Ql (U) Leukocyte esterase [Presence] in Urine by Test strip Negative [facility] Leukocyte esterase Test strip Ql (U) Negative Normal Negative [facility] Comment on above: Order Comment: Name Collection Type:: Clean-Voided Midstream Performed By: #### A DDONUAPLUS, ESR, DIFF CBC, CMP #### [facility] [address] [place] [address] [place] #### CH50, C4, C3 #### [facility] , Leukocytes [#/area] in Urine sediment by Automated countOrdered By: Christine Sanchez on 04-18-2025 WBC Auto (Urine sed) [#/Area] Leukocytes [#/area] in Urine sediment by Automated count 0-[address] [facility] WBC Auto (Urine sed) [#/Area] 1-2 [HPF] 0-[address] [facility] Leukocytes [#/volume] correc nat for nucleated erythrocytes in Blood by Automated counOrdered By: Christine Sanchez on 04-18-2025 WBC corrected for nucl RBC Auto (Bld) [#/Vol] Leukocytes [#/volume] corrected for nucleated erythrocytes in Blood by Automated coun 4.1-10.[address] [facility] WBC corrected for nucl RBC Auto (Bld) [#/Vol] 5.5 10*3/uL 4.1-10.[address] [facility] Leukocytes [#/volume] in Blo od by Automated countOrdered By: Christine Sanchez on 04-18-2025 WBC (Bld) [#/Vol] 5.5 10*3/uL Normal 4.1-10.5 [facility] Comment on above: Performed By: #### A DDONUAPLUS, ESR, DIFF CBC, CMP #### [facility] [address] [place] [address] [place] #### CH50, C4, C3 #### [facility] , Lymphocytes Auto (Bld) [#/Vo l]Ordered By: Christine Sanchez on 04-18-2025 Lymphocytes (Bld) [#/Vol] Lymphocytes [#/volume] in Blood by Automated count [facility] Lymphocytes (Bld) [#/Vol] N/A [facility] Lymphocytes/100 WBC Auto (Bl d)Ordered By: Christine Sanchez on 04-18-2025 Lymphocytes/100 WBC (Bld) Lymphocytes/100 leukocytes in Blood by Automated count [facility] Lymphocytes/100 WBC (Bld) N/A [facility] Lymphocytes/100 WBC Manual c nt (Bld)Ordered By: Christine Sanchez on 04-18-2025 Lymphocytes/100 WBC (Bld) Lymphocytes/100 leukocytes in Blood by Manual count Low 18-[address] [facility] Lymphocytes/100 leukocytes i n Blood by Manual countOrdered By: Christine Sanchez on 04-18-2025 Lymphocytes/100 WBC (Bld) 8 % Low 18-[address] [facility] Comment on above: Performed By: #### A DDONUAPLUS, ESR, DIFF CBC, CMP #### [facility] [address] [place] [address] [place] #### CH50, C4, C3 #### [facility] , MCH Auto (RBC) [Entitic mass ]Ordered By: Christine Sanchez on 04-18-2025 MCH (RBC) [Entitic mass] MCH [Entitic mass] by Automated count 27.5-35.[address] [facility] MCH [Entitic mass] by Automa nat countOrdered By: Christine Sanchez on 04-18-2025 MCH (RBC) [Entitic mass] 31.6 pg Normal 27.5-35.[address] [facility] Comment on above: Performed By: #### A DDONUAPLUS, ESR, DIFF CBC, CMP #### [facility] [address] [place] [address] [place] #### CH50, C4, C3 #### [facility] , MCHC Auto (RBC) [Mass/Vol]Or dered By: Christine Sanchez on 04-18-2025 MCHC (RBC) [Mass/Vol] MCHC [Mass/volume] by Automated count 32.5-35.[address] [facility] MCHC (RBC) [Mass/Vol] 34.8 g/dL 32.5-35.6 [facility] MCV Auto (RBC) [Entitic vol] Ordered By: Christine Sanchez on 04-18-2025 MCV (RBC) [Entitic vol] MCV [Entitic volume] by Automated count 83.5-[address] [facility] MCV [Entitic volume] by Auto mated countOrdered By: Christine Sanchez on 04-18-2025 MCV (RBC) [Entitic vol] 90.9 fL Normal 83.5-[address] [facility] Comment on above: Performed By: #### A DDONUAPLUS, ESR, DIFF CBC, CMP #### [facility] [address] [place] [address] [place] #### CH50, C4, C3 #### [facility] , Metamyelocytes/100 WBC Manua l cnt (Bld)Ordered By: Christine Sanchez on 04-18-2025 Metamyelocytes/100 WBC (Bld) Metamyelocytes/100 leukocytes in Blood by Manual count High 0-[address] [facility] Metamyelocytes/100 WBC (Bld) 1 % [facility] 0-[address] [facility] Monocytes Auto (Bld) [#/Vol] Ordered By: hCristine Sanchez on 04-18-2025 Monocytes (Bld) [#/Vol] Automated blood monocyte count [facility] Monocytes (Bld) [#/Vol] N/A [facility] Monocytes/100 WBC Auto (Bld) Ordered By: Christine Sanchez on 04-18-2025 Monocytes/100 WBC (Bld) Automated monocyte % [facility] Monocytes/100 WBC (Bld) N/A [facility] Monocytes/100 WBC Manual cnt (Bld)Ordered By: Christine Sanchez on 04-18-2025 Monocytes/100 WBC (Bld) Monocytes/100 leukocytes in Blood by Manual count [facility] [address] Monocytes/100 leukocytes in Blood by Manual countOrdered By: Christine Sanchez on 04-18-2025 Monocytes/100 WBC (Bld) 19 % [facility] [address] [facility] Comment on above: Performed By: #### A DDONUAPLUS, ESR, DIFF CBC, CMP #### [place] [address] [place] #### CH50, C4, C3 #### [facility] , Mucus [Presence] in Urine by AutomatedOrdered By: Christine Sanchez on 04-18-2025 Mucus Auto Ql (U) Mucus [Presence] in Urine by Automated Abnormal [facility] Mucus Auto Ql (U) 4+ [LPF] Abnormal [facility] Myelocytes/100 WBC Manual cn t (Bld)Ordered By: Christine Sanchez on 04-18-2025 Myelocytes/100 WBC (Bld) Myelocytes/100 leukocytes in Blood by Manual count High 0-[address] [facility] Myelocytes/100 WBC (Bld) 3 % High 0-[address] [facility] Neutrophils Auto (Bld) [#/Vo l]Ordered By: Christine Sanchez on 04-18-2025 Neutrophils (Bld) [#/Vol] Neutrophils [#/volume] in Blood by Automated count [facility] Neutrophils (Bld) [#/Vol] N/A [facility] Neutrophils/100 WBC Auto (Bl d)Ordered By: Christine Sanchez on 04-18-2025 Neutrophils/100 WBC (Bld) Automated neutrophil % [facility] Neutrophils/100 WBC (Bld) N/A [facility] Nitrite Test strip Ql (U)Ord ered By: Christine Sanchez on 04-18-2025 Nitrite Ql (U) Nitrite [Presence] i n Urine by Test strip Negative [facility] Nitrite Ql (U) Negative Negative [facility] No Panel InformationOrdered By: Christine Sanchez on 04-18-2025 Estimated GFR (CKD-EPI) > 60.0 mL/Min [facility] Creatinine Clearance (Chem N/A [facility] Nucleated erythrocytes [Pres ence] in Blood by Automated countOrdered By: Christine Sanchez on 04-18-2025 Nucleated RBC Auto Ql (Bld) Nucleated erythrocytes [Presence] in Blood by Automated count [facility] Nucleated RBC Auto Ql (Bld) N/A [facility] Platelet adequacy [Presence] in Blood by Light microscopyOrdered By: Christine Sanchez on 04-18-2025 Platelets LM Ql (Bld) Platelet adequacy [Presence] in Blood by Light microscopy Normal [facility] Platelets LM Ql (Bld) Normal Normal [facility] Platelet mean volume Auto (B ld) [Entitic vol]Ordered By: Christine Sanchez on 04-18-2025 Platelet mean volume (Bld) [Entitic vol] Platelet mean volume [Entitic volume] in Blood by Automated count 6.6-10.[address] [facility] Platelet mean volume [Entiti c volume] in Blood by Automated countOrdered By: Christine Sanchez on 04-18-2025 Platelet mean volume (Bld) [Entitic vol] 8.3 fL Normal 6.6-10.[address] [facility] Comment on above: Performed By: #### A DDONUAPLUS, ESR, DIFF CBC, CMP #### [facility] [address] [place] [address] [place] #### CH50, C4, C3 #### [facility] , Platelet morphology finding [Identifier] in BloodOrdered By: Christine Sanchez on 04-18-2025 Platelet morphology finding Nom (Bld) Platelet morphology finding [Identifier] in Blood Normal [facility] Platelet morphology finding Nom (Bld) Normal Normal [facility] Platelets Auto (Bld) [#/Vol] Ordered By: Christine Sanchez on 04-18-2025 Platelets (Bld) [#/Vol] Platelets [#/volume] in Blood by Automated count 150-[address] [facility] Platelets [#/volume] in Bloo d by Automated countOrdered By: Christine Sanchez on 04-18-2025 Platelets (Bld) [#/Vol] 207 10*3/uL Normal 150-[address] [facility] Comment on above: Performed By: #### A DDONUAPLUS, ESR, DIFF CBC, CMP #### [facility] [address] [place] [address] [place] #### CH50, C4, C3 #### [facility] , Potassium [Moles/volume] in Serum or PlasmaOrdered By: Christine Sanchez on 04-18-2025 Potassium [Moles/Vol] Potassium [Moles/v olume] in Serum or Plasma 3.5-5.[address] [facility] Potassium [Moles/Vol] 4.3 mmol/L Normal 3.5-5.1 [facility] Comment on above: Performed By: #### A DDONUAPLUS, ESR, DIFF CBC, CMP #### [place] [address] [place] #### CH50, C4, C3 #### [facility] , Protein Test strip (U) [Mass /Vol]Ordered By: Christine Sanchez on 04-18-2025 Protein (U) [Mass/Vol] Protein [Mass/vol ume] in Urine by Test strip High Negative [facility] Protein [Mass/volume] in Ser um or PlasmaOrdered By: Christine Sanchez on 04-18-2025 Protein [Mass/Vol] Protein [Mass/volume ] in Serum or Plasma Low 6.4-8.[address] [facility] Protein [Mass/Vol] 6.1 g/dL Low 6.4-8.9 [facility] Comment on above: Performed By: #### A DDONUAPLUS, ESR, DIFF CBC, CMP #### [place] [address] [place] #### CH50, C4, C3 #### [facility] , Protein [Mass/volume] in Uri ne by Test stripOrdered By: Christine Sanchez on 04-18-2025 Protein (U) [Mass/Vol] 50 mg/dL High Negative [facility] Comment on above: Order Comment: Name Collection Type:: Clean-Voided Midstream Performed By: #### A DDONUAPLUS, ESR, DIFF CBC, CMP #### [place] [address] [place] #### CH50, C4, C3 #### [facility] , RBC Auto (Bld) [#/Vol]Ordere d By: Christine Sanchez on 04-18-2025 RBC (Bld) [#/Vol] Erythrocytes [#/volu me] in Blood by Automated count 3.90-5.[address] [facility] Segmented neutrophils/100 WB C Manual cnt (Bld)Ordered By: Christine Sanchez on 04-18-2025 Segmented neutrophils/100 WBC (Bld) Manual blood segmented neutrophils/100 leukocytes 50-[address] [facility] Segmented neutrophils/100 le ukocytes in Blood by Manual countOrdered By: Christine Sanchez on 04-18-2025 Segmented neutrophils/100 WBC (Bld) 69 % Normal 50-[address] [facility] Comment on above: Performed By: #### A DDONUAPLUS, ESR, DIFF CBC, CMP #### [facility] [address] [place] [address] [place] #### CH50, C4, C3 #### [facility] , Serum globulin measurement b y calculation (mass/volume)Ordered By: Christine Sanchez on 04-18-2025 Globulin (S) [Mass/Vol] 2.0 g/dL Normal [facility] Comment on above: Performed By: #### A DDONUAPLUS, ESR, DIFF CBC, CMP #### [facility] [address] [place] [address] [place] #### CH50, C4, C3 #### [facility] , Serum or plasma albumin/glob ulin mass ratioOrdered By: Christine Sanchez on 04-18-2025 Albumin/Globulin [Mass ratio] Serum or plasma albumin/globulin mass ratio [facility] Albumin/Globulin [Mass ratio] 2.1 {ratio} [facility] Comment on above: Performed By: #### A DDONUAPLUS, ESR, DIFF CBC, CMP #### [place] [address] [place] #### CH50, C4, C3 #### [facility] , Serum or plasma anion gap de terminationOrdered By: Christine Sanchez on 04-18-2025 Anion gap [Moles/Vol] Serum or plasma an ion gap determination 6.0-15.[address] [facility] Anion gap [Moles/Vol] 13.3 mmol/L Normal 6.0-15.0 [facility] Comment on above: Performed By: #### A DDONUAPLUS, ESR, DIFF CBC, CMP #### [facility] [address] [place] [address] [place] #### CH50, C4, C3 #### [facility] , Serum or plasma complement C 3 measurement (mass/volume)Ordered By: Christine Sanchez on 04-18-2025 Complement C3 [Mass/Vol] Serum or plasma complement C3 measurement (mass/volume) [facility] Comment on above: Performed at: [facility] [address] [id number] Director: Richy Ardon PhD, Phone: [phone] Complement C3 [Mass/Vol] 121 mg/dL [address] [facility] Comment on above: Performed at: [facility] [address] [id number] Director: Richy Ardon PhD, Phone: [phone] Serum or plasma complement C 4 measurement (mass/volume)Ordered By: Christine Sanchez on 04-18-2025 Complement C4 [Mass/Vol] Serum or plasma complement C4 measurement (mass/volume) [facility] Complement C4 [Mass/Vol] 14 mg/dL [facility] Sodium [Moles/volume] in Ser um or PlasmaOrdered By: Christine Sanchez on 04-18-2025 Sodium [Moles/Vol] Sodium [Moles/volume ] in Serum or Plasma 136-[address] [facility] Sodium [Moles/Vol] 137 mmol/L Normal 136-145 [facility] Comment on above: Performed By: #### A DDONUAPLUS, ESR, DIFF CBC, CMP #### [facility] [address] [place] [address] [place] #### CH50, C4, C3 #### [facility] , Specific gravity Test strip (U) [Rel density]Ordered By: Christine Sanchez on 04-18-2025 Specific gravity (U) [Rel density] Specific gravity of Urine by Test strip 1.001-1.[address] [facility] Specific gravity (U) [Rel density] 1.027 1.001-1.[address] [facility] Total hemolytic complement C H50 assayOrdered By: Christine Sanchez on 04-18-2025 Total Complement (CH50) 58 U/mL >[address] [facility] Comment on above: Age Male Female [...] to determine out of range values.Performed at: [facility] [employer] [facility] [employer] [id number] Director: Richy Ardon PhD, Phone: [phone] Total hemolytic complement CH50 assay 58 U/mL >[address] [facility] Comment on above: Age Male Female [...] to determine out of range values.Performed at: [facility] [facility] [address] [id number] Director: Richy Ardon PhD, Phone: [phone] Urea nitrogen [Mass/volume] in Serum or PlasmaOrdered By: Christine Sanchez on 04-18-2025 Urea nitrogen [Mass/Vol] Urea nitrogen [Mass/volume] in Serum or Plasma 06-[address] [facility] Urea nitrogen [Mass/Vol] 22 mg/dL Normal 06-[address] [facility] Comment on above: Performed By: #### A DDONUAPLUS, ESR, DIFF CBC, CMP #### [address] #### CH50, C4, C3 #### [facility] , Urobilinogen Test strip (U) [Mass/Vol]Ordered By: Christine Sanchez on 04-18-2025 Urobilinogen (U) [Mass/Vol] Urobilinogen [Mass/volume] in Urine by Test strip Normal [facility] Urobilinogen (U) [Mass/Vol] Normal mg/dL Normal [facility] WBC Auto (Bld) [#/Vol]Ordere d By: Christine Sanchez on 04-18-2025 WBC (Bld) [#/Vol] Leukocytes [#/volume ] in Blood by Automated count 4.1-10.[address] [facility] pH Test strip (U)Ordered By: Christine Sanchez on 04-18-2025 pH (U) pH of Urine by Test strip 5.0-9.[address] [facility] pH of Urine by Test stripOrd ered By: Christine Sanchez on 04-18-2025 pH (U) 6.0 [pH] Normal 5.0-9.[address] [facility] Comment on above: Order Comment: Name Collection Type:: Clean-Voided Midstream Performed By: #### A DDONUAPLUS, ESR, DIFF CBC, CMP #### [facility] [address] [place] [address] [place] #### CH50, C4, C3 #### [facility] , X-ray reportOrdered By: Yaneth Bill on 04-10-2025 Study report [facility] [address] [place] [address] XRay Report Signed Patient: Valentin Torre MR#: [id number] : 1955 Acct:[id number] Age/Sex: 69 / M ADM Date: 5 Loc: [facility] Room: Type: [facility] CLI Attending Dr: Jaime Murcia II, MD Copies [...] Bill M.D. 04/10/2025 1:53 PM Dictation Location: [place] [address] Transcribed By: [facility] 04/10/25 1353 Dictated By: Yaneth Bill II, MD 04/10/25 1352 Signed By: 04/10/25 [facility] Work Phone: XR knee RT 4V*on 04-10-2025 XR knee RT 4V* [facility] [address] [place] [address] XRay Report Signed Patient: Valentin Torre MR#: [id number] : 1955 Acct:[id number] Age/Sex: 69 / M ADM Date: 04/10/25 Loc: [facility] Room: Type: [facility] Attending Dr: Jaime Murcia II, MD [...] Bill M.D. 04/10/2025 1:53 PM Dictation Location: [place] [address] Transcribed By: [facility] 04/10/25 1353 Dictated By: Yaneth Bill II, MD 04/10/25 1352 Signed By: 04/10/25 1353 Normal [facility] Alanine aminotransferase [En zymatic activity/volume] in Serum or PlasmaOrdered By: Marley Dumont on 02-16-2025 ALT [Catalytic activity/Vol] Alanine aminotransferase [Enzymatic activity/volume] in Serum or Plasma 7-[address] [facility] Albumin [Mass/volume] in Ser um or Plasma by Bromocresol green (BCG) dye binding methoOrdered By: Marley Dumont on 02-16-2025 Albumin BCG dye [Mass/Vol] Albumin [Mass/volume] in Serum or Plasma by Bromocresol green (BCG) dye binding metho 3.5-5.[address] [facility] Alkaline phosphatase [Enzyma tic activity/volume] in Serum or PlasmaOrdered By: Marley Dumont on 02-16-2025 ALP [Catalytic activity/Vol] Alkaline phosphatase [Enzymatic activity/volume] in Serum or Plasma 34-[address] [facility] Aspartate aminotransferase [ Enzymatic activity/volume] in Serum or PlasmaOrdered By: Marley Dumont on 02-16-2025 AST [Catalytic activity/Vol] Aspartate aminotransferase [Enzymatic activity/volume] in Serum or Plasma 13-[address] [facility] Basophils Auto (Bld) [#/Vol] Ordered By: Marley Dumont on 02-16-2025 Basophils (Bld) [#/Vol] Automated basophil count 0.0-0.2 [facility] Basophils/100 WBC Auto (Bld) Ordered By: Marley Dumont on 02-16-2025 Basophils/100 WBC (Bld) Automated basophil % . [facility] Bilirubin.total [Mass/volume ] in Serum or PlasmaOrdered By: Marley Dumont on 02-16-2025 Bilirubin [Mass/Vol] Bilirubin.total [Mass/volume] in Serum or Plasma 0.3-1.[address] [facility] Calcium [Mass/volume] in Ser um or PlasmaOrdered By: Marley Dumont on 02-16-2025 Calcium [Mass/Vol] Calcium [Mass/volume ] in Serum or Plasma 8.6-10.[address] [facility] Carbon dioxide, total [Moles /volume] in Serum or PlasmaOrdered By: Marley Dumont on 02-16-2025 CO2 [Moles/Vol] Carbon dioxide, tota l [Moles/volume] in Serum or Plasma Low 21.0-31.[address] [facility] Chloride [Moles/volume] in S ace or PlasmaOrdered By: Marley Dumont on 02-16-2025 Chloride [Moles/Vol] Chloride [Moles/vol ume] in Serum or Plasma 98-[address] [facility] Complete Blood Count Auto Di ffon 02-16-2025 Basophils (Bld) [#/Vol] 0.0 10*3/uL Normal 0.0-0.2 [facility] Comment on above: Result Comment: PERF ORMED BY: [place] [address] PATHOLOGIST STUDIO DESIGNER HECTOR MEJIA M.D. Performed By: #### H S TROP #### [address] Basophils/100 WBC (Bld) 0.3 % Normal . [facility] Comment on above: Performed By: #### H S TROP #### [address] Eosinophils (Bld) [#/Vol] 0.1 10*3/uL Normal 0.0-0.45 [facility] Comment on above: Performed By: #### H S TROP #### [address] Eosinophils/100 WBC (Bld) 0.7 % Normal . [facility] Comment on above: Performed By: #### H S TROP #### [address] Erythrocyte distribution width (RBC) [Ratio] 15.4 % High 12.0-14.8 [facility] Comment on above: Performed By: #### H S TROP #### [address] Hematocrit (Bld) [Volume fraction] 46.5 % Normal 38.8-50.0 [facility] Comment on above: Performed By: #### H S TROP #### [address] Hemoglobin (Bld) [Mass/Vol] 16.0 g/dL Normal 13.0-17.0 [facility] Comment on above: Performed By: #### H S TROP #### [address] Lymphocytes (Bld) [#/Vol] 1.0 10*3/uL Normal 1.00-4.8 [facility] Comment on above: Performed By: #### H S TROP #### [address] Lymphocytes/100 WBC (Bld) 11.0 % Normal . [facility] Comment on above: Performed By: #### H S TROP #### [address] MCH (RBC) [Entitic mass] 31.5 pg Normal 27.5-35.2 [facility] Comment on above: Performed By: #### H S TROP #### [address] MCV (RBC) [Entitic vol] 91.6 fL Normal 83.5-101 [facility] Comment on above: Performed By: #### H S TROP #### [address] Mean Corpuscular HGB Conc 34.4 g/dL Normal 32.5-35.6 [facility] Comment on above: Performed By: #### H S TROP #### [address] Monocytes (Bld) [#/Vol] 0.9 10*3/uL High 0.0-0.8 [facility] Comment on above: Performed By: #### H S TROP #### [address] Monocytes/100 WBC (Bld) 9.6 % Normal . [facility] Comment on above: Performed By: #### H S TROP #### [address] Neutrophils (Bld) [#/Vol] 7.1 10*3/uL Normal 1.8-7.7 [facility] Comment on above: Performed By: #### H S TROP #### [address] Neutrophils/100 WBC (Bld) 78.4 % Normal . [facility] Comment on above: Performed By: #### H S TROP #### [address] NRBC% 0.1 /100{WBC} Normal 0-0.5 [facility] Comment on above: Performed By: #### H S TROP #### [address] Platelet mean volume (Bld) [Entitic vol] 8.0 fL Normal 6.6-10.1 [facility] Comment on above: Performed By: #### H S TROP #### [place] [address] [place] Platelets (Bld) [#/Vol] 166 10*3/uL Normal 150-450 [facility] Comment on above: Performed By: #### H S TROP #### [place] [address] [place] RBC (Bld) [#/Vol] 5.08 10*6/uL Normal 3.90-5.60 [facility] Comment on above: Performed By: #### H S TROP #### [address] WBC (Bld) [#/Vol] 9.1 10*3/uL Normal 4.1-10.5 [facility] Comment on above: Performed By: #### H S TROP #### [address] Comprehensive Metabolic Pane vivek 02-16-2025 Albumin [Mass/Vol] 4.1 g/dL Normal 3.5-5.7 [facility] Comment on above: Performed By: #### H S TROP #### [address] Albumin/Globulin [Mass ratio] 1.9 {ratio} Normal [facility] Comment on above: Performed By: #### H S TROP #### [address] ALP [Catalytic activity/Vol] 64 U/L Normal 34-104 [facility] Comment on above: Performed By: #### H S TROP #### [address] ALT [Catalytic activity/Vol] 21 U/L Normal 7-52 [facility] Comment on above: Performed By: #### H S TROP #### [address] Anion gap [Moles/Vol] 12.8 mmol/L Normal 6.0-15.0 [facility] Comment on above: Performed By: #### H S TROP #### [address] AST [Catalytic activity/Vol] 15 U/L Normal 13-39 [facility] Comment on above: Performed By: #### H S TROP #### [address] Bilirubin [Mass/Vol] 0.8 mg/dL Normal 0.3-1.0 [facility] Comment on above: Performed By: #### H S TROP #### [address] Calcium [Mass/Vol] 8.7 mg/dL Normal 8.6-10.3 [facility] Comment on above: Performed By: #### H S TROP #### [address] Chloride [Moles/Vol] 106 mmol/L Normal 98-107 [facility] Comment on above: Performed By: #### H S TROP #### [address] CO2 [Moles/Vol] 20.6 mmol/L Low 21.0-31.0 [facility] Comment on above: Performed By: #### H S TROP #### [address] Creatinine [Mass/Vol] 0.74 mg/dL Normal 0.70-1.30 [facility] Comment on above: Performed By: #### H S TROP #### [address] Creatinine Clr Calc Pharmacy 103.16 Normal [facility] Comment on above: Result Comment: PERF ORMED BY: [place] [address] PATHOLOGIST STUDIO DESIGNER HECTOR MEJIA M.D. Performed By: #### H S TROP #### [address] GFR/1.73 sq M.predicted MDRD (S/P/Bld) [Vol rate/Area] mL/min/{1.73_m2} Normal [facility] Comment on above: Performed By: #### H S TROP #### [place] [address] [place] Globulin (S) [Mass/Vol] 2.2 g/dL Normal [facility] Comment on above: Performed By: #### H S TROP #### [address] Glucose [Mass/Vol] 85 mg/dL Normal 70-100 [facility] Comment on above: Result Comment: [place] Glucose Reference Range is dependent on time and content of last meal. Glucose of more than 200 mg/dL in a nonstressed, ambulatory subject supports the diagnosis of Diabetes Mellitus. ADA recommended reference range Performed By: #### H S TROP #### [facility] [address] [place] [address] Potassium [Moles/Vol] 4.4 mmol/L Normal 3.5-5.1 [facility] Comment on above: Performed By: #### H S TROP #### [facility] [address] [place] [address] Protein [Mass/Vol] 6.3 g/dL Low 6.4-8.9 [facility] Comment on above: Performed By: #### H S TROP #### [facility] [address] [place] [address] Sodium [Moles/Vol] 135 mmol/L Low 136-145 [facility] Comment on above: Performed By: #### H S TROP #### [facility] [address] [place] [address] [place] Urea nitrogen [Mass/Vol] 21 mg/dL Normal 7-25 [facility] Comment on above: Performed By: #### H S TROP #### [place] [address] [place] Creatinine [Mass/volume] in Serum or PlasmaOrdered By: Obivonnedaclaritza Wetzelomar on 02-16-2025 Creatinine [Mass/Vol] Creatinine [Mass/v olume] in Serum or Plasma 0.70-1.[address] [facility] Eosinophils Auto (Bld) [#/Vo l]Ordered By: Obaydah Daromar on 02-16-2025 Eosinophils (Bld) [#/Vol] Automated eosinophil count 0.0-0.45 [facility] Eosinophils/100 WBC Auto (Bl d)Ordered By: Obivonnedah Daromar on 02-16-2025 Eosinophils/100 WBC (Bld) Automated eosinophil % . [facility] Erythrocyte distribution wid th Auto (RBC) [Ratio]Ordered By: Obhayde Wetzelomar on 02-16-2025 Erythrocyte distribution width (RBC) [Ratio] Erythrocyte distribution width [Ratio] by Automated count High 12.0-14.[address] [facility] Globulin Calc (S) [Mass/Vol] Ordered By: Marley Wetzelomar on 02-16-2025 Globulin (S) [Mass/Vol] Serum globulin measurement by calculation (mass/volume) [facility] Glucose [Mass/volume] in Ser um or PlasmaOrdered By: Obhayde Wetzelomar on 02-16-2025 Glucose [Mass/Vol] Glucose [Mass/volume ] in Serum or Plasma 70-[address] [facility] Comment on above: ADA recommended refe rence rangeRandom Glucose Reference Range is dependent on time and content of last meal. Glucose of more than 200 mg/dL in a nonstressed, ambulatory subject supports the diagnosis of Diabetes Mellitus. Hematocrit Auto (Bld) [Volum e fraction]Ordered By: Marley Lutzr on 02-16-2025 Hematocrit (Bld) [Volume fraction] Hematocrit [Volume Fraction] of Blood by Automated count 38.8-50.[address] [facility] Hemoglobin [Mass/volume] in BloodOrdered By: Marley Wetzelomar on 02-16-2025 Hemoglobin (Bld) [Mass/Vol] Hemoglobin [Mass/volume] in Blood 13.0-17.[address] [facility] Leukocytes [#/volume] correc nat for nucleated erythrocytes in Blood by Automated counOrdered By: Marley Wetzelomar on 02-16-2025 WBC corrected for nucl RBC Auto (Bld) [#/Vol] Leukocytes [#/volume] corrected for nucleated erythrocytes in Blood by Automated coun 4.1-10.[address] [facility] Lymphocytes Auto (Bld) [#/Vo l]Ordered By: JeNu BiosciencesivonneBeatsyomar on 02-16-2025 Lymphocytes (Bld) [#/Vol] Lymphocytes [#/volume] in Blood by Automated count 1.00-4.[address] [facility] Lymphocytes/100 WBC Auto (Bl d)Ordered By: [employer]ivonneBeatsyomar on 02-16-2025 Lymphocytes/100 WBC (Bld) Lymphocytes/100 leukocytes in Blood by Automated count . [facility] MCH Auto (RBC) [Entitic mass ]Ordered By: Obivonnedaclaritza Wetzelomar on 02-16-2025 MCH (RBC) [Entitic mass] MCH [Entitic mass] by Automated count 27.5-35.[address] [facility] MCHC Auto (RBC) [Mass/Vol]Or dered By: Obivonnedaclaritza Wetzelomar on 02-16-2025 MCHC (RBC) [Mass/Vol] MCHC [Mass/volume] by Automated count 32.5-35.[address] [facility] MCV Auto (RBC) [Entitic vol] Ordered By: Obivonnedaclaritza Wetzelomar on 02-16-2025 MCV (RBC) [Entitic vol] MCV [Entitic volume] by Automated count 83.5-[address] [facility] Monocytes Auto (Bld) [#/Vol] Ordered By: Obhayde Wetzelomar on 02-16-2025 Monocytes (Bld) [#/Vol] Automated blood monocyte count High 0.0-0.[address] [facility] Monocytes/100 WBC Auto (Bld) Ordered By: Marley Wetzelomar on 02-16-2025 Monocytes/100 WBC (Bld) Automated monocyte % . [facility] Neutrophils Auto (Bld) [#/Vo l]Ordered By: Obhayde Wetzelomar on 02-16-2025 Neutrophils (Bld) [#/Vol] Neutrophils [#/volume] in Blood by Automated count 1.8-7.[address] [facility] Neutrophils/100 WBC Auto (Bl d)Ordered By: Marley Wetzelomar on 02-16-2025 Neutrophils/100 WBC (Bld) Automated neutrophil % . [facility] No Panel InformationOrdered By: Marley Wetzelomar on 02-16-2025 Estimated GFR (CKD-EPI) > 60.0 mL/Min [facility] Creatinine Clearance (Chem 103.[address] [facility] Nucleated erythrocytes [Pres ence] in Blood by Automated countOrdered By: Marley Wetzelomar on 02-16-2025 Nucleated RBC Auto Ql (Bld) Nucleated erythrocytes [Presence] in Blood by Automated count 0-0.[address] [facility] Platelet mean volume Auto (B ld) [Entitic vol]Ordered By: Obivonnedaclaritza Wetzelomar on 02-16-2025 Platelet mean volume (Bld) [Entitic vol] Platelet mean volume [Entitic volume] in Blood by Automated count 6.6-10.[address] [facility] Platelets Auto (Bld) [#/Vol] Ordered By: Obhayde Wetzelomar on 02-16-2025 Platelets (Bld) [#/Vol] Platelets [#/volume] in Blood by Automated count 150-[address] [facility] Potassium [Moles/volume] in Serum or PlasmaOrdered By: Obhayde Wetzelomar on 02-16-2025 Potassium [Moles/Vol] Potassium [Moles/v olume] in Serum or Plasma 3.5-5.[address] [facility] Protein [Mass/volume] in Ser um or PlasmaOrdered By: Obhayde Wetzelomar on 02-16-2025 Protein [Mass/Vol] Protein [Mass/volume ] in Serum or Plasma Low 6.4-8.[address] [facility] RBC Auto (Bld) [#/Vol]Ordere d By: Marley Wetzelomar on 02-16-2025 RBC (Bld) [#/Vol] Erythrocytes [#/volu me] in Blood by Automated count 3.90-5.[address] [facility] Serum or plasma albumin/glob ulin mass ratioOrdered By: Marley Wetzelomar on 02-16-2025 Albumin/Globulin [Mass ratio] Serum or plasma albumin/globulin mass ratio [facility] Serum or plasma anion gap de terminationOrdered By: Marley Wetzelomar on 02-16-2025 Anion gap [Moles/Vol] Serum or plasma an ion gap determination 6.0-15.[address] [facility] Sodium [Moles/volume] in Ser um or PlasmaOrdered By: Obhayde Wetzelomar on 02-16-2025 Sodium [Moles/Vol] Sodium [Moles/volume ] in Serum or Plasma Low 136-[address] [facility] Troponin I High Sensitivityo n 02-16-2025 Troponin I High Sensitivity 10 Normal 0-20 [facility] Comment on above: Result Comment: The Troponin units of report have been changed to meet the Chest Pain Accreditation requirement, element EC5.M1l2. Troponin units are changed from pg/ml to ng/L. Also, the decimal is removed and results are in whole numbers. PERFORMED BY: [place] [address] PATHOLOGIST STUDIO DESIGNER HECTOR MEJIA M.D. Performed By: #### C RP #### [address] Troponin I.cardiac [Mass/vol ume] in Serum or Plasma by Detection limit <= 0.01 ng/Ordered By: Marley Dumont on 02-16-2025 Troponin I.cardiac DL <= 0.01 ng/mL [Mass/Vol] Troponin I.cardiac [Mass/volume] in Serum or Plasma by Detection limit <= 0.01 ng/ 0-[address] [facility] Comment on above: The Troponin units o f report have been changed to meet the Chest Pain Accreditation requirement, element EC5.M1l2. Troponin units are changed from pg/ml to ng/L. Also, the decimal is removed and results are in whole numbers. Urea nitrogen [Mass/volume] in Serum or PlasmaOrdered By: Marley Dumont on 02-16-2025 Urea nitrogen [Mass/Vol] Urea nitrogen [Mass/volume] in Serum or Plasma 06-[address] [facility] WBC Auto (Bld) [#/Vol]Ordere d By: Marley Lutzr on 02-16-2025 WBC (Bld) [#/Vol] Leukocytes [#/volume ] in Blood by Automated count 4.1-10.[address] [facility] B-Type Natriuretic Peptideon 02-15-2025 Natriuretic peptide B (Bld) [Mass/Vol] 31.0 pg/mL Normal 5-100 [facility] Comment on above: Result Comment: PERF ORMED BY: [address] [address] PATHOLOGIST STUDIO DESIGNER HECTOR MEJIA M.D. Performed By: #### H S TROP #### [address] Basic Metabolic Panelon 01-20 Anion gap [Moles/Vol] 12.6 mmol/L Normal 6.0-15.0 [facility] Comment on above: Performed By: #### C RP #### [address] Calcium [Mass/Vol] 9.6 mg/dL Normal 8.6-10.3 [facility] Comment on above: Performed By: #### C RP #### [address] Chloride [Moles/Vol] 105 mmol/L Normal 98-107 [facility] Comment on above: Performed By: #### C RP #### [address] CO2 [Moles/Vol] 22.4 mmol/L Normal 21.0-31.0 [facility] Comment on above: Performed By: #### C RP #### [address] Creatinine [Mass/Vol] 0.83 mg/dL Normal 0.70-1.30 [facility] Comment on above: Performed By: #### C RP #### [place] [address] [place] Creatinine Clr Calc Pharmacy 96.68 Normal [facility] Comment on above: Result Comment: PERF ORMED BY: [place] [address] PATHOLOGIST STUDIO DESIGNER HECTOR MEJIA M.D. Performed By: #### C RP #### [place] [address] [place] GFR/1.73 sq M.predicted MDRD (S/P/Bld) [Vol rate/Area] mL/min/{1.73_m2} Normal [facility] Comment on above: Performed By: #### C RP #### [address] Glucose [Mass/Vol] 105 mg/dL High 70-100 [facility] Comment on above: Result Comment: [place] Glucose Reference Range is dependent on time and content of last meal. Glucose of more than 200 mg/dL in a nonstressed, ambulatory subject supports the diagnosis of Diabetes Mellitus. ADA recommended reference range Performed By: #### C RP #### [facility] [address] Potassium [Moles/Vol] 4.0 mmol/L Normal 3.5-5.1 [facility] Comment on above: Performed By: #### C RP #### [facility] [address] Sodium [Moles/Vol] 136 mmol/L Normal 136-145 [facility] Comment on above: Performed By: #### C RP #### [facility] [address] Urea nitrogen [Mass/Vol] 25 mg/dL Normal 7-25 [facility] Comment on above: Performed By: #### C RP #### [facility] [address] Basophils Auto (Bld) [#/Vol] Ordered By: Romel Orta on 02-15-2025 Basophils (Bld) [#/Vol] Automated basophil count 0.0-0.2 [facility] Basophils/100 WBC Auto (Bld) Ordered By: Romel Orta on 02-15-2025 Basophils/100 WBC (Bld) Automated basophil % . [facility] Calcium [Mass/volume] in Ser um or PlasmaOrdered By: Romel Orta on 02-15-2025 Calcium [Mass/Vol] Calcium [Mass/volume ] in Serum or Plasma 8.6-10.[address] [facility] Carbon dioxide, total [Moles /volume] in Serum or PlasmaOrdered By: Romel Orta on 02-15-2025 CO2 [Moles/Vol] Carbon dioxide, tota l [Moles/volume] in Serum or Plasma 21.0-31.[address] [facility] Chloride [Moles/volume] in S ace or PlasmaOrdered By: Romel Orta on 02-15-2025 Chloride [Moles/Vol] Chloride [Moles/vol ume] in Serum or Plasma 98-[address] [facility] Complete Blood Count Auto Di ffon 02-15-2025 Basophils (Bld) [#/Vol] 0.0 10*3/uL Normal 0.0-0.2 [facility] Comment on above: Result Comment: PERF ORMED BY: [place] [address] PATHOLOGIST STUDIO DESIGNER HECTOR MEJIA M.D. Performed By: #### H S TROP #### [address] Basophils/100 WBC (Bld) 0.3 % Normal . [facility] Comment on above: Performed By: #### H S TROP #### [address] Eosinophils (Bld) [#/Vol] 0.1 10*3/uL Normal 0.0-0.45 [facility] Comment on above: Performed By: #### H S TROP #### [address] Eosinophils/100 WBC (Bld) 0.5 % Normal . [facility] Comment on above: Performed By: #### H S TROP #### [address] Erythrocyte distribution width (RBC) [Ratio] 15.0 % High 12.0-14.8 [facility] Comment on above: Performed By: #### H S TROP #### [address] Hematocrit (Bld) [Volume fraction] 48.4 % Normal 38.8-50.0 [facility] Comment on above: Performed By: #### H S TROP #### [address] Hemoglobin (Bld) [Mass/Vol] 16.4 g/dL Normal 13.0-17.0 [facility] Comment on above: Performed By: #### H S TROP #### [address] Lymphocytes (Bld) [#/Vol] 1.0 10*3/uL Normal 1.00-4.8 [facility] [facility] Comment on above: Performed By: #### H S TROP #### [address] Lymphocytes/100 WBC (Bld) 10.3 % Normal . [facility] Comment on above: Performed By: #### H S TROP #### [address] MCH (RBC) [Entitic mass] 31.0 pg Normal 27.5-35.2 [facility] Comment on above: Performed By: #### H S TROP #### [address] MCV (RBC) [Entitic vol] 91.3 fL Normal 83.5-101 [facility] Comment on above: Performed By: #### H S TROP #### [address] Mean Corpuscular HGB Conc 33.9 g/dL Normal 32.5-35.6 [facility] Comment on above: Performed By: #### H S TROP #### [address] Monocytes (Bld) [#/Vol] 1.3 10*3/uL High 0.0-0.8 [facility] Comment on above: Performed By: #### H S TROP #### [address] Monocytes/100 WBC (Bld) 17.25 % Normal 0.00-20.00 [facility] Comment on above: Performed By: #### H S TROP #### [address] Monocytes/100 WBC (Bld) 14.0 % Normal . [facility] Comment on above: Performed By: #### H S TROP #### [address] Neutrophils (Bld) [#/Vol] 7.1 10*3/uL Normal 1.8-7.7 [facility] Comment on above: Performed By: #### H S TROP #### [address] Neutrophils/100 WBC (Bld) 74.9 % Normal . [facility] Comment on above: Performed By: #### H S TROP #### [address] NRBC% 0.1 /100{WBC} Normal 0-0.5 [facility] Comment on above: Performed By: #### H S TROP #### [address] Platelet mean volume (Bld) [Entitic vol] 7.9 fL Normal 6.6-10.1 [facility] Comment on above: Performed By: #### H S TROP #### [address] Platelets (Bld) [#/Vol] 204 10*3/uL Normal 150-450 [facility] Comment on above: Performed By: #### H S TROP #### [address] RBC (Bld) [#/Vol] 5.30 10*6/uL Normal 3.90-5.60 [facility] Comment on above: Performed By: #### H S TROP #### [address] WBC (Bld) [#/Vol] 9.5 10*3/uL Normal 4.1-10.5 [facility] Comment on above: Performed By: #### H S TROP #### [address] Creatine Kinaseon 02-15-2025 CK [Catalytic activity/Vol] 50 U/L Normal 30-223 [facility] Comment on above: Result Comment: PERF ORMED BY: [place] [address] PATHOLOGIST STUDIO DESIGNER HECTOR MEJIA M.D. Performed By: #### H S TROP #### [address] [place] [address] [facility] Creatine kinase [Enzymatic a ctivity/volume] in Serum or PlasmaOrdered By: Romel Orta on 02-15-2025 CK [Catalytic activity/Vol] Creatine kinase [Enzymatic activity/volume] in Serum or Plasma [facility] Creatinine [Mass/volume] in Serum or PlasmaOrdered By: Romel Orta on 02-15-2025 Creatinine [Mass/Vol] Creatinine [Mass/v olume] in Serum or Plasma 0.70-1.[address] [facility] D-Dimer High Sensitivityon 0 02-15-2025 D-Dimer High Sensitivity 200 ng/mL Normal 0-243 [facility] Comment on above: Result Comment: [...] coagulation studies. Please contact the laboratory at [phone] for redraw instructions. PERFORMED BY: [place] [address] PATHOLOGIST STUDIO DESIGNER HECTOR MEJAI M.D. Performed By: #### C RP #### [place] [id number] [facility] ECG 12 lead ECGon 02-15-2025 ECG 12 lead ECG [facility] Main [place] [id number] Electrocardiograph Report Signed Patient: Valentin Torre MR#: [id number] 29 : 1955 Acct:[id number] Age/Sex: 69 / M ADM Date: 02/15/25 Loc: Room: 7P9158-0 Type: DIS INOo Attending Dr: Gabi Almanzar [...] in Inferior leads Confirmed by Bayron Tim ([id number]) on 02/19/2025 5:14:22 AM Referred By: Electronically Signed By: Bayron Tim Transcribed By: MUS Signed By Bayron Tim MD 02/19/25 0514 Normal [facility] ECG 12 lead ECG [facility] [place] [address] Electrocardiograph Report Signed Patient: Valentin Torre MR#: [id number] 29 : 1955 Acct:[id number] Age/Sex: 69 / M ADM Date: 02/15/25 [...] wave abnormality Confirmed by Martha Gomes MD ([id number]) on 02/15/2025 11:27:03 AM Referred By: Electronically Signed By: Martha Gomes MD Transcribed By: MUS Signed By Martha Gomes MD 01/20 07/15 1127 Normal [facility] Eosinophils Auto (Bld) [#/Vo l]Ordered By: Romel Orta on 02-15-2025 Eosinophils (Bld) [#/Vol] Automated eosinophil count 0.0-0.45 [facility] Eosinophils/100 WBC Auto (Bl d)Ordered By: Romel Orta on 02-15-2025 Eosinophils/100 WBC (Bld) Automated eosinophil % . [facility] Erythrocyte distribution wid th Auto (RBC) [Ratio]Ordered By: Romel Orta on 02-15-2025 Erythrocyte distribution width (RBC) [Ratio] Erythrocyte distribution width [Ratio] by Automated count High 12.0-14.[address] [facility] Fibrin D-dimer [Presence] in Platelet poor plasma by Latex agglutinationOrdered By: Martha Gomes on 02-15-2025 Fibrin D-dimer LA Ql (PPP) Fibrin D-dimer [Presence] in Platelet poor plasma by Latex agglutination 0-[address] [facility] Comment on above: The reference range for [...] coagulation studies. Please contact the laboratory at [phone] for redraw instructions. Glucose [Mass/volume] in Ser um or PlasmaOrdered By: Romel Orta on 02-15-2025 Glucose [Mass/Vol] Glucose [Mass/volume ] in Serum or Plasma High 70-[address] [facility] Comment on above: ADA recommended refe rence rangeRandom Glucose Reference Range is dependent on time and content of last meal. Glucose of more than 200 mg/dL in a nonstressed, ambulatory subject supports the diagnosis of Diabetes Mellitus. Hematocrit Auto (Bld) [Volum e fraction]Ordered By: Romel Orta on 02-15-2025 Hematocrit (Bld) [Volume fraction] Hematocrit [Volume Fraction] of Blood by Automated count 38.8-50.[address] [facility] Hemoglobin [Mass/volume] in BloodOrdered By: Romel Orta on 02-15-2025 Hemoglobin (Bld) [Mass/Vol] Hemoglobin [Mass/volume] in Blood 13.0-17.[address] [facility] INR in Platelet poor plasma by Coagulation assayOrdered By: Romel Orta on 02-15-2025 INR Coag (PPP) [Relative time] INR in Platelet poor plasma by Coagulation assay [facility] Comment on above: INR Therapeutic Rang [...] erythrocytes in Blood by Automated coun 4.1-10.[address] [facility] Lymphocytes Auto (Bld) [#/Vo l]Ordered By: Romel Orta on 02-15-2025 Lymphocytes (Bld) [#/Vol] Lymphocytes [#/volume] in Blood by Automated count 1.00-4.[address] [facility] Lymphocytes/100 WBC Auto (Bl d)Ordered By: Romel Orta on 02-15-2025 Lymphocytes/100 WBC (Bld) Lymphocytes/100 leukocytes in Blood by Automated count . [facility] MCH Auto (RBC) [Entitic mass ]Ordered By: Romel Orta on 02-15-2025 MCH (RBC) [Entitic mass] MCH [Entitic mass] by Automated count 27.5-35.[address] [facility] MCHC Auto (RBC) [Mass/Vol]Or dered By: Romel Orta on 02-15-2025 MCHC (RBC) [Mass/Vol] MCHC [Mass/volume] by Automated count 32.5-35.[address] [facility] MCV Auto (RBC) [Entitic vol] Ordered By: Romel Orta on 02-15-2025 MCV (RBC) [Entitic vol] MCV [Entitic volume] by Automated count 83.5-[address] [facility] Monocyte distribution width [Entitic volume] in Blood by AutomatedOrdered By: Romel Orta on 02-15-2025 Monocyte distribution width Auto (Bld) [Entitic vol] Monocyte distribution width [Entitic volume] in Blood by Automated 0.00-20.[address] [facility] Monocytes Auto (Bld) [#/Vol] Ordered By: Romel Orta on 02-15-2025 Monocytes (Bld) [#/Vol] Automated blood monocyte count High 0.0-0.[address] [facility] Monocytes/100 WBC Auto (Bld) Ordered By: Romel Orta on 02-15-2025 Monocytes/100 WBC (Bld) Automated monocyte % . [facility] Natriuretic peptide B [Mass/ Vol]Ordered By: Romel Orta on 02-15-2025 Natriuretic peptide B (Bld) [Mass/Vol] BNP ser/plas 5-[address] [facility] Neutrophils Auto (Bld) [#/Vo l]Ordered By: Romel Orta on 02-15-2025 Neutrophils (Bld) [#/Vol] Neutrophils [#/volume] in Blood by Automated count 1.8-7.[address] [facility] Neutrophils/100 WBC Auto (Bl d)Ordered By: Romel Orta on 02-15-2025 Neutrophils/100 WBC (Bld) Automated neutrophil % . [facility] No Panel InformationOrdered By: Romel Orta on 02-15-2025 Estimated GFR (CKD-EPI) > 60.0 mL/Min [facility] Creatinine Clearance (Chem 96.[address] [facility] Nucleated erythrocytes [Pres ence] in Blood by Automated countOrdered By: Romel Orta on 02-15-2025 Nucleated RBC Auto Ql (Bld) Nucleated erythrocytes [Presence] in Blood by Automated count 0-0.[address] [facility] Platelet mean volume Auto (B ld) [Entitic vol]Ordered By: Romel Orta on 02-15-2025 Platelet mean volume (Bld) [Entitic vol] Platelet mean volume [Entitic volume] in Blood by Automated count 6.6-10.[address] [facility] Platelets Auto (Bld) [#/Vol] Ordered By: Romel Orta on 02-15-2025 Platelets (Bld) [#/Vol] Platelets [#/volume] in Blood by Automated count 150-[address] [facility] Potassium [Moles/volume] in Serum or PlasmaOrdered By: Romel Orta on 02-15-2025 Potassium [Moles/Vol] Potassium [Moles/v olume] in Serum or Plasma 3.5-5.[address] [facility] Prothrombin Time INRon 02-15 INR Coag (PPP) [Relative time] 1.1 {INR} Normal [facility] Comment on above: Result Comment: [...] heart valves: 3 - 4.5 PERFORMED BY: [place] [address] PATHOLOGIST STUDIO DESIGNER HECTOR MEJIA M.D. Performed By: #### H S TROP #### [facility] [address] [place] [id number] [facility] PT Coag (PPP) [Time] 12.0 s Normal 9.0-12.9 [facility] Comment on above: Result Comment: A he matocrit value greater than 55% may lead to inaccurate results in coagulation testing. Patients having hematocrit values >55% require a special collection tube for coagulation studies. Please contact the laboratory at [phone] for redraw instructions. Performed By: #### H S TROP #### [facility] [address] [place] [id number] [facility] Prothrombin time (PT)Ordered By: Romel Orta on 02-15-2025 PT Coag (PPP) [Time] Prothrombin time (PT) 9.0- 12.[address] [facility] Comment on above: A hematocrit value g reater than 55% may lead to inaccurate results in coagulation testing. Patients having hematocrit values >55% require a special collection tube for coagulation studies. Please contact the laboratory at [phone] for redraw instructions. RBC Auto (Bld) [#/Vol]Ordere d By: Romel Orta on 02-15-2025 RBC (Bld) [#/Vol] Erythrocytes [#/volu me] in Blood by Automated count 3.90-5.[address] [facility] Serum or plasma anion gap de terminationOrdered By: Romel Orta on 02-15-2025 Anion gap [Moles/Vol] Serum or plasma an ion gap determination 6.0-15.[address] [facility] Sodium [Moles/volume] in Ser um or PlasmaOrdered By: Romel Orta on 02-15-2025 Sodium [Moles/Vol] Sodium [Moles/volume ] in Serum or Plasma 136-[address] [facility] Troponin I High Sensitivityo n 02-15-2025 Troponin I High Sensitivity 10 Normal 0-20 [facility] Comment on above: Result Comment: The Troponin units of report have been changed to meet the Chest Pain Accreditation requirement, element EC5.M1l2. Troponin units are changed from pg/ml to ng/L. Also, the decimal is removed and results are in whole numbers. PERFORMED BY: [place] [address] PATHOLOGIST STUDIO DESIGNER HECTOR MEJIA M.D. Performed By: #### H S TROP #### [facility] [address] [place] [address] Performed By: #### C RP #### [facility] [address] [place] [address] Troponin I High Sensitivity 8 Normal 0-20 [facility] Comment on above: Result Comment: The Troponin units of report have been changed to meet the Chest Pain Accreditation requirement, element EC5.M1l2. Troponin units are changed from pg/ml to ng/L. Also, the decimal is removed and results are in whole numbers. PERFORMED BY: [place] [address] PATHOLOGIST STUDIO DESIGNER HECTOR MEJIA M.D. Performed By: #### H S TROP #### [address] Troponin I.cardiac [Mass/vol ume] in Serum or Plasma by Detection limit <= 0.01 ng/Ordered By: Martha Gomes on 02-15-2025 Troponin I.cardiac DL <= 0.01 ng/mL [Mass/Vol] Troponin I.cardiac [Mass/volume] in Serum or Plasma by Detection limit <= 0.01 ng/ 0-[address] [facility] Comment on above: The Troponin units o f report have been changed to meet the Chest Pain Accreditation requirement, element EC5.M1l2. Troponin units are changed from pg/ml to ng/L. Also, the decimal is removed and results are in whole numbers. Urea nitrogen [Mass/volume] in Serum or PlasmaOrdered By: Romel Orta on 02-15-2025 Urea nitrogen [Mass/Vol] Urea nitrogen [Mass/volume] in Serum or Plasma 06-[address] [facility] WBC Auto (Bld) [#/Vol]Ordere d By: Romel Orta on 02-15-2025 WBC (Bld) [#/Vol] Leukocytes [#/volume ] in Blood by Automated count 4.1-10.[address] [facility] X-ray reportOrdered By: Jorge Mayer on 02-15-2025 Study report [facility] [place] [address] XRay Report Signed Patient: Valentin Torre MR#: [id number] : 1955 Acct:[id number] Age/Sex: 69 / M ADM Date: 5 Loc: ER Room: Type: [facility] ER Attending Dr: Copies to: MD [...] Alo Mayer M.D.02/15/2025 10:47 AM Dictation Location: RADIO-PC-23 Transcribed By: MARV 02/15/25 104 Dictated By: Alo Mayer MD 02/15/25 104 Signed By: 02/15/[address] [facility] Work Phone: XR chest 1V portableon 02-15 XR chest 1V portable [facility] [place] [address] XRay Report Signed Patient: Valentin Torre MR#: [id number] 29 : 1955 Acct:[id number] Age/Sex: 69 / M ADM Date: 02/15/25 Loc: ER Room: Type: [facility] ER Attending Dr: Copies to: MD [...] Alo Mayer M.D.02/15/2025 10:47 AM Dictation Location: RADIO-PC-23 Transcribed By: MARV 02/15/25 104 Dictated By: Alo Mayer MD 02/15/25 104 Signed By: 02/15/25 1047 Normal [facility] X-ray reportOrdered By: Isaura Alexandra on 01-25-2025 Study report [facility] Main [address] [address] XRay Report Signed Patient: Valentin Torre MR#: [id number] : 1955 Acct:[id number] Age/Sex: 69 / M ADM Date: 5 Loc: XD Room: Type: [facility] CLI Attending Dr: Sascha Sutton DO [...] Christine Alexandra M.D.01/25/2025 10:48 PM Dictation Location: [place] [address] Transcribed By: [facility] 01/25/252247 Dictated By: Christine Alexandra MD 01/25/252243 Signed By: 01/25/252247 [facility] Work Phone: XR ankle RT min 3V*on 2024 XR ankle RT min 3V* [facility] Main [address] [address] XRay Report Signed Patient: Valentin Torre MR#: [id number] [birth year] : 1955 Acct:[id number] Age/Sex: 69 / M ADM Date: 01/25/25 Loc: XD Room: Type: REG CLI Attending [...] Christine Alexandra M.D.01/25/2025 10:48 PM Dictation Location: [place] [address] Transcribed By: [facility] 01/25/252247 Dictated By: Christine Alexandra MD 01/25/252243 Signed By: 01/25/252247 Normal [facility] Alanine aminotransferase [En zymatic activity/volume] in Serum or PlasmaOrdered By: Romel [place] on 01-14-2025 ALT [Catalytic activity/Vol] Alanine aminotransferase [Enzymatic activity/volume] in Serum or Plasma [address] [facility] Albumin [Mass/volume] in Ser um or Plasma by Bromocresol green (BCG) dye binding methoOrdered By: Romel [place] on 01-14-2025 Albumin BCG dye [Mass/Vol] Albumin [Mass/volume] in Serum or Plasma by Bromocresol green (BCG) dye binding metho 3.5-5.[address] [facility] Alkaline phosphatase [Enzyma tic activity/volume] in Serum or PlasmaOrdered By: Romel [place] on 01-14-2025 ALP [Catalytic activity/Vol] Alkaline phosphatase [Enzymatic activity/volume] in Serum or Plasma 34-[address] [facility] Appearance of UrineOrdered B y: Romel [place] on 01-14-2025 Appearance (U) Urine appearance Clear [facility] Aspartate aminotransferase [ Enzymatic activity/volume] in Serum or PlasmaOrdered By: Romel [place] on 01-14-2025 AST [Catalytic activity/Vol] Aspartate aminotransferase [Enzymatic activity/volume] in Serum or Plasma 13-[address] [facility] Bacteria [Presence] in Urine by AutomatedOrdered By: Romel [place] on 01-14-2025 Bacteria Auto Ql (U) Bacteria [Presence] in Urine by Automated None Seen [facility] Basophils Auto (Bld) [#/Vol] Ordered By: Romel [place] on 01-14-2025 Basophils (Bld) [#/Vol] Automated basophil count 0.0-0.2 [facility] Basophils/100 WBC Auto (Bld) Ordered By: Romel [place] on 01-14-2025 Basophils/100 WBC (Bld) Automated basophil % . [facility] Bilirubin Test strip Ql (U)O rdered By: Romel [place] on 01-14-2025 Bilirubin Ql (U) Bilirubin.total [Pre sence] in Urine by Test strip Negative [facility] Bilirubin.total [Mass/volume ] in Serum or PlasmaOrdered By: Romel [place] on 01-14-2025 Bilirubin [Mass/Vol] Bilirubin.total [Mass/volume] in Serum or Plasma 0.3-1.[address] [facility] Calcium [Mass/volume] in Ser um or PlasmaOrdered By: Romel [place] on 01-14-2025 Calcium [Mass/Vol] Calcium [Mass/volume ] in Serum or Plasma 8.6-10.[address] [facility] Carbon dioxide, total [Moles /volume] in Serum or PlasmaOrdered By: Romel [place] on 01-14-2025 CO2 [Moles/Vol] Carbon dioxide, tota l [Moles/volume] in Serum or Plasma 21.0-31.[address] [facility] Chloride [Moles/volume] in S ace or PlasmaOrdered By: Romel [place] on 01-14-2025 Chloride [Moles/Vol] Chloride [Moles/vol ume] in Serum or Plasma 98-[address] [facility] Color Auto (U)Ordered By: Bridgett [place] on 01-14-2025 Color (U) Color of Urine by Auto Yellow Fi relaFormerly [facility] Complement C3on 01-14-2025 Complement C3 129 mg/dL Normal 82-167 [facility] Comment on above: Result Comment: Perf ormed at: - [facility] [address] [id number] Reconditioning Associate: Richy Ardon PhD, Phone: [phone] Performed By: #### Elliott CHAVEZ #### [facility] , Complement C4on 01-14-2025 Complement C4 15 mg/dL Normal 12-38 [facility] Comment on above: Result Comment: PERF ORMED BY: [address] [address] PATHOLOGIST STUDIO DESIGNER HECTOR MEJIA M.D. Performed By: #### Elliott CHAVEZ #### [facility] , Complement Total (CH50)on Complement Total (CH50) 57 Normal >41 [facility] Comment on above: Result Comment: [...] out of range values. Performed at: - [facility] [id number] Reconditioning Associate: Richy Ardon PhD, Phone: [phone] PERFORMED BY: [address] [address] PATHOLOGIST STUDIO DESIGNER HECTOR MEJIA M.D. Performed By: #### Elliott CHAVEZ #### [facility] , Comprehensive Metabolic Pane vivek 01-14-2025 Albumin [Mass/Vol] 3.9 g/dL Normal 3.5-5.7 [facility] Comment on above: Performed By: #### Elliott CHAVEZ #### [facility] , Albumin/Globulin [Mass ratio] 1.9 {ratio} Normal [facility] Comment on above: Performed By: #### Elliott CHAVEZ #### [facility] , ALP [Catalytic activity/Vol] 81 U/L Normal 34-104 [facility] Comment on above: Result Comment: PERF ORMED BY: [facility] [place] [address] PATHOLOGIST STUDIO DESIGNER HECTOR MEJIA M.D. Performed By: #### Elliott CHAVEZ #### [facility] , ALT [Catalytic activity/Vol] 39 U/L Normal 7-52 [facility] Comment on above: Performed By: #### Elliott CHAVEZ #### [facility] , Anion gap [Moles/Vol] 10.8 mmol/L Normal 6.0-15.0 [facility] Comment on above: Performed By: #### Elliott CHAVEZ #### [facility] , AST [Catalytic activity/Vol] 23 U/L Normal 13-39 [facility] Comment on above: Performed By: #### Elliott CHAVEZ #### [facility] , Bilirubin [Mass/Vol] 0.6 mg/dL Normal 0.3-1.0 [facility] Comment on above: Performed By: #### Elliott CHAVEZ #### [facility] , Calcium [Mass/Vol] 9.1 mg/dL Normal 8.6-10.3 [facility] Comment on above: Performed By: #### Elliott CHAVEZ #### [facility] , Chloride [Moles/Vol] 106 mmol/L Normal 98-107 [facility] Comment on above: Performed By: #### Elliott CHAVEZ #### [facility] , CO2 [Moles/Vol] 26.4 mmol/L Normal 21.0-31.0 [facility] Comment on above: Performed By: #### Elliott CHAVEZ #### [facility] , Creatinine [Mass/Vol] 0.81 mg/dL Normal 0.70-1.30 [facility] Comment on above: Performed By: #### Elliott CHAVEZ #### [facility] , GFR/1.73 sq M.predicted MDRD (S/P/Bld) [Vol rate/Area] mL/min/{1.73_m2} Normal [facility] Comment on above: Performed By: #### S SCOTT #### [facility] , Globulin (S) [Mass/Vol] 2.1 g/dL Normal [facility] Comment on above: Performed By: #### Elliott CHAVEZ #### [facility] , Glucose [Mass/Vol] 121 mg/dL High 70-100 [facility] Comment on above: Result Comment: [place] Glucose Reference Range is dependent on time and content of last meal. Glucose of more than 200 mg/dL in a nonstressed, ambulatory subject supports the diagnosis of Diabetes Mellitus. ADA recommended reference range Performed By: #### Elliott CHAVEZ #### [facility] , Potassium [Moles/Vol] 4.2 mmol/L Normal 3.5-5.1 [facility] Comment on above: Performed By: #### Elliott CHAVEZ #### [facility] , Protein [Mass/Vol] 6.0 g/dL Low 6.4-8.9 [facility] Comment on above: Performed By: #### Elliott CHAVEZ #### [facility] , Sodium [Moles/Vol] 139 mmol/L Normal 136-145 [facility] Comment on above: Performed By: #### Elliott CHAVEZ #### [facility] , Urea nitrogen [Mass/Vol] 19 mg/dL Normal 7-25 [facility] Comment on above: Performed By: #### Elliott CHAVEZ #### [facility] , Creatinine [Mass/volume] in Serum or PlasmaOrdered By: Romel [place] on 01-14-2025 Creatinine [Mass/Vol] Creatinine [Mass/v olume] in Serum or Plasma 0.70-1.[address] [facility] Dipstick and Microscopicon 0 01-14-2025 Appearance (U) Clear Normal Clear [facility] Comment on above: Order Comment: Name Collection Type:: Clean-Voided Midstream Performed By: #### S JOGRENS #### [facility] , Bacteria,Urine None Seen Normal None Seen [facility] Comment on above: Order Comment: Name Collection Type:: Clean-Voided Midstream Performed By: #### S JOGRENS #### [facility] , Bilirubin,Urine Negative Normal Negative [facility] Comment on above: Order Comment: Name Collection Type:: Clean-Voided Midstream Performed By: #### S JOGRENS #### [facility] , Color (U) Yellow Normal Yellow [facility] Comment on above: Order Comment: Name Collection Type:: Clean-Voided Midstream Performed By: #### S JOGRENS #### [facility] , Glucose Ql (U) Normal Normal Normal [facility] Comment on above: Order Comment: Name Collection Type:: Clean-Voided Midstream Performed By: #### S MARIANNAGRENS #### [facility] , Hyaline Casts,Urine None Normal 0-8 [facility] Comment on above: Order Comment: Name Collection Type:: Clean-Voided Midstream Performed By: #### S MARIANNAGRENS #### [facility] , Ketones Ql (U) Negative Normal Negative [facility] Comment on above: Order Comment: Name Collection Type:: Clean-Voided Midstream Performed By: #### S MARIANNAGRENS #### [facility] , Leukocyte esterase Test strip Ql (U) Negative Normal Negative [facility] Comment on above: Order Comment: Name Collection Type:: Clean-Voided Midstream Performed By: #### S JOGRENS #### [facility] , Mucus,Urine Rare Normal [facility] Comment on above: Order Comment: Name Collection Type:: Clean-Voided Midstream Result Comment: PERF ORMED BY: [place] [address] [address] PATHOLOGIST STUDIO DESIGNER HECTOR MEJIA M.D. Performed By: #### S WUS #### [facility] , Nitrite,Urine Negative Normal Negative [facility] Comment on above: Order Comment: Name Collection Type:: Clean-Voided Midstream Performed By: #### S MARIANNAGRENS #### [facility] , Occult Blood,Urine Negative Normal Negative [facility] Comment on above: Order Comment: Name Collection Type:: Clean-Voided Midstream Performed By: #### S WUS #### [facility] , pH (U) 7.5 [pH] Normal 5.0-9.0 [facility] Comment on above: Order Comment: Name Collection Type:: Clean-Voided Midstream Performed By: #### S WUS #### [facility] , Protein (U) [Mass/Vol] 30 mg/dL High Negative [facility] Comment on above: Order Comment: Name Collection Type:: Clean-Voided Midstream Performed By: #### S SCOTT #### [facility] , RBC,Urine 1-2 Normal 0-4 [facility] Comment on above: Order Comment: Name Collection Type:: Clean-Voided Midstream Performed By: #### S WUS #### [facility] , Specificy [place],Urine 1.029 Normal 1.001-1.03 0 [facility] Comment on above: Order Comment: Name Collection Type:: Clean-Voided Midstream Performed By: #### S WUS #### [facility] , Urobilinogen,Urine Normal Normal Normal [facility] Comment on above: Order Comment: Name Collection Type:: Clean-Voided Midstream Performed By: #### S MARIANNAGRENS #### [facility] , WBC,Urine 1-2 Normal 0-4 [facility] Comment on above: Order Comment: Name Collection Type:: Clean-Voided Midstream Performed By: #### S WUS #### [facility] , Eosinophils Auto (Bld) [#/Vo l]Ordered By: Romel Davis on 01-14-2025 Eosinophils (Bld) [#/Vol] Automated eosinophil count 0.0-0.45 [facility] Eosinophils/100 WBC Auto (Bl d)Ordered By: Romel Davis on 01-14-2025 Eosinophils/100 WBC (Bld) Automated eosinophil % . [facility] Epithelial cells.squamous [# /area] in Urine sediment by Automated countOrdered By: Romel Davis on 01-14-2025 Epithelial cells.squamous Auto (Urine sed) [#/Area] Epithelial cells.squamous [#/area] in Urine sediment by Automated count [facility] Erythrocyte Sedimentation Ra bruno 01-14-2025 ESR (Bld) [Velocity] 6 mm/h Normal 0-19 [facility] Comment on above: Result Comment: PERF ORMED BY: [facility] [address] [place] [address] PATHOLOGIST STUDIO DESIGNER HECTOR MEJIA M.D. Performed By: #### S SCOTT #### [facility] , Erythrocyte distribution wid th Auto (RBC) [Ratio]Ordered By: Romel Davis on 01-14-2025 Erythrocyte distribution width (RBC) [Ratio] Erythrocyte distribution width [Ratio] by Automated count High 12.0-14.[address] [facility] Erythrocyte morphology findi ng [Identifier] in BloodOrdered By: Romel Davis on 01-14-2025 RBC morphology finding Nom (Bld) RBC morphology Normal [facility] Erythrocyte sedimentation ra te by Photometric methodOrdered By: Romel Davis on 01-14-2025 ESR Photometric method (Bld) [Velocity] Erythrocyte sedimentation rate by Photometric method 0-[address] [facility] Erythrocytes [#/area] in Uri ne sediment by Automated countOrdered By: Romel Davis on 01-14-2025 RBC Auto (Urine sed) [#/Area] Erythrocytes [#/area] in Urine sediment by Automated count 0-[address] [facility] Globulin Calc (S) [Mass/Vol] Ordered By: Romel Davis on 01-14-2025 Globulin (S) [Mass/Vol] Serum globulin measurement by calculation (mass/volume) [facility] Glucose [Mass/volume] in Ser um or PlasmaOrdered By: Romel Davis on 01-14-2025 Glucose [Mass/Vol] Glucose [Mass/volume ] in Serum or Plasma High 70-[address] [facility] Comment on above: ADA recommended refe [...] [Mass/volume] in Urine by Test strip Normal [facility] Hematocrit Auto (Bld) [Volum e fraction]Ordered By: Romel Davis on 01-14-2025 Hematocrit (Bld) [Volume fraction] Hematocrit [Volume Fraction] of Blood by Automated count 38.8-50.[address] [facility] Hemoglobin Test strip Ql (U) Ordered By: Romel Davis on 01-14-2025 Hemoglobin Ql (U) Hemoglobin [Presence ] in Urine by Test strip Negative [facility] Hemoglobin [Mass/volume] in BloodOrdered By: Romel Davis 01-14-2025 Hemoglobin (Bld) [Mass/Vol] Hemoglobin [Mass/volume] in Blood 13.0-17.[address] [facility] Hyaline casts [#/area] in Ur ine sediment by Automated countOrdered By: Romel Davis on 01-14-2025 Hyaline casts Auto (Urine sed) [#/Area] Hyaline casts [#/area] in Urine sediment by Automated count 0-[address] [facility] Ketones Test strip Ql (U)Ord ered By: Romel Davis on 01-14-2025 Ketones Ql (U) Ketones [Presence] i n Urine by Test strip Negative [facility] Leukocyte esterase [Presence ] in Urine by Test stripOrdered By: Romel Davis on 01-14-2025 Leukocyte esterase Test strip Ql (U) Leukocyte esterase [Presence] in Urine by Test strip Negative [facility] Leukocytes [#/area] in Urine sediment by Automated countOrdered By: Romel Davis on 01-14-2025 WBC Auto (Urine sed) [#/Area] Leukocytes [#/area] in Urine sediment by Automated count 0-[address] [facility] Leukocytes [#/volume] correc nat for nucleated erythrocytes in Blood by Automated counOrdered By: Romel Davis on 01-14-2025 WBC corrected for nucl RBC Auto (Bld) [#/Vol] Leukocytes [#/volume] corrected for nucleated erythrocytes in Blood by Automated coun 4.1-10.[address] [facility] Lymphocytes Auto (Bld) [#/Vo l]Ordered By: Romel Davis on 01-14-2025 Lymphocytes (Bld) [#/Vol] Lymphocytes [#/volume] in Blood by Automated count Low 1.00-4.[address] [facility] Lymphocytes/100 WBC Auto (Bl d)Ordered By: Romel Davis on 01-14-2025 Lymphocytes/100 WBC (Bld) Lymphocytes/100 leukocytes in Blood by Automated count . [facility] MCH Auto (RBC) [Entitic mass ]Ordered By: Romel Davis on 01-14-2025 MCH (RBC) [Entitic mass] MCH [Entitic mass] by Automated count 27.5-35.[address] [facility] MCHC Auto (RBC) [Mass/Vol]Or dered By: Romel Davis on 01-14-2025 MCHC (RBC) [Mass/Vol] MCHC [Mass/volume] by Automated count 32.5-35.[address] [facility] MCV Auto (RBC) [Entitic vol] Ordered By: Romel Davis on 01-14-2025 MCV (RBC) [Entitic vol] MCV [Entitic volume] by Automated count 83.5-[address] [facility] Monocytes Auto (Bld) [#/Vol] Ordered By: Romel Davis on 01-14-2025 Monocytes (Bld) [#/Vol] Automated blood monocyte count 0.0-0.[address] [facility] Monocytes/100 WBC Auto (Bld) Ordered By: Romel Davis on 01-14-2025 Monocytes/100 WBC (Bld) Automated monocyte % . [facility] Mucus [Presence] in Urine by AutomatedOrdered By: Romel Davis on 01-14-2025 Mucus Auto Ql (U) Mucus [Presence] in Urine by Automated [facility] Neutrophils Auto (Bld) [#/Vo l]Ordered By: Romel Davis on 01-14-2025 Neutrophils (Bld) [#/Vol] Neutrophils [#/volume] in Blood by Automated count 1.8-7.[address] [facility] Neutrophils/100 WBC Auto (Bl d)Ordered By: Romel Davis on 01-14-2025 Neutrophils/100 WBC (Bld) Automated neutrophil % . [facility] Nitrite Test strip Ql (U)Ord ered By: Romel Davis on 01-14-2025 Nitrite Ql (U) Nitrite [Presence] i n Urine by Test strip Negative [facility] No Panel InformationOrdered By: Romel Davis on 01-14-2025 Estimated GFR (CKD-EPI) > 60.0 mL/Min [facility] Creatinine Clearance (Chem N/A [facility] Nucleated erythrocytes [Pres ence] in Blood by Automated countOrdered By: Romel Davis on 01-14-2025 Nucleated RBC Auto Ql (Bld) Nucleated erythrocytes [Presence] in Blood by Automated count 0-0.[address] [facility] Platelet adequacy [Presence] in Blood by Light microscopyOrdered By: Romel Davis on 01-14-2025 Platelets LM Ql (Bld) Platelet adequacy [Presence] in Blood by Light microscopy Normal [facility] Platelet mean volume Auto (B ld) [Entitic vol]Ordered By: Romel Davis on 01-14-2025 Platelet mean volume (Bld) [Entitic vol] Platelet mean volume [Entitic volume] in Blood by Automated count 6.6-10.[address] [facility] Platelet morphology finding [Identifier] in BloodOrdered By: Romel Davis on 01-14-2025 Platelet morphology finding Nom (Bld) Platelet morphology finding [Identifier] in Blood Normal [facility] Platelets Auto (Bld) [#/Vol] Ordered By: Romel Davis on 01-14-2025 Platelets (Bld) [#/Vol] Platelets [#/volume] in Blood by Automated count 150-[address] [facility] Potassium [Moles/volume] in Serum or PlasmaOrdered By: Romel Davis on 01-14-2025 Potassium [Moles/Vol] Potassium [Moles/v olume] in Serum or Plasma 3.5-5.[address] [facility] Protein Test strip (U) [Mass /Vol]Ordered By: Romel Davis on 01-14-2025 Protein (U) [Mass/Vol] Protein [Mass/vol ume] in Urine by Test strip High Negative [facility] Protein [Mass/volume] in Ser um or PlasmaOrdered By: Romel Davis on 01-14-2025 Protein [Mass/Vol] Protein [Mass/volume ] in Serum or Plasma Low 6.4-8.[address] [facility] RBC Auto (Bld) [#/Vol]Ordere d By: Romel Davis on 01-14-2025 RBC (Bld) [#/Vol] Erythrocytes [#/volu me] in Blood by Automated count 3.90-5.[address] [facility] Scan and CBCon 01-14-2025 Basophils (Bld) [#/Vol] 0.0 10*3/uL Normal 0.0-0.2 [facility] Comment on above: Performed By: #### Elliott CHAVEZ #### [facility] , Basophils/100 WBC (Bld) 0.5 % Normal . [facility] Comment on above: Performed By: #### Elliott CHAVEZ #### [facility] , Eosinophils (Bld) [#/Vol] 0.1 10*3/uL Normal 0.0-0.45 [facility] Comment on above: Performed By: #### Elliott CHAVEZ #### [facility] , Eosinophils/100 WBC (Bld) 1.2 % Normal . [facility] Comment on above: Performed By: #### Elliott CHAVEZ #### [facility] , Erythrocyte distribution width (RBC) [Ratio] 15.0 % High 12.0-14.8 [facility] Comment on above: Performed By: #### Elliott CHAVEZ #### [facility] , Hematocrit (Bld) [Volume fraction] 44.3 % Normal 38.8-50.0 [facility] Comment on above: Performed By: #### Elliott CHAVEZ #### [facility] , Hemoglobin (Bld) [Mass/Vol] 15.3 g/dL Normal 13.0-17.0 [facility] Comment on above: Performed By: #### Elliott CHAVEZ #### [facility] , Lymphocytes (Bld) [#/Vol] 0.8 10*3/uL Low 1.00-4.8 [facility] Comment on above: Performed By: #### Elliott CHAVEZ #### [facility] , Lymphocytes/100 WBC (Bld) 17.5 % Normal . [facility] Comment on above: Performed By: #### Elliott CHAVEZ #### [facility] , MCH (RBC) [Entitic mass] 31.1 pg Normal 27.5-35.2 [facility] Comment on above: Performed By: #### Elliott CHAVEZ #### [facility] , MCV (RBC) [Entitic vol] 90.0 fL Normal 83.5-101 [facility] Comment on above: Performed By: #### Elliott CHAVEZ #### [facility] , Mean Corpuscular HGB Conc 34.5 g/dL Normal 32.5-35.6 [facility] Comment on above: Performed By: #### Elliott CHAVEZ #### [facility] , Monocytes (Bld) [#/Vol] 0.4 10*3/uL Normal 0.0-0.8 [facility] Comment on above: Performed By: #### Elliott CHAVEZ #### [facility] , Monocytes/100 WBC (Bld) 8.1 % Normal . [facility] Comment on above: Performed By: #### Elliott CHAVEZ #### [facility] , Neutrophils (Bld) [#/Vol] 3.2 10*3/uL Normal 1.8-7.7 [facility] Comment on above: Performed By: #### Elliott CHAVEZ #### [facility] , Neutrophils/100 WBC (Bld) 72.7 % Normal . [facility] Comment on above: Performed By: #### Elliott CHAVEZ #### [facility] , NRBC% 0.1 /100{WBC} Normal 0-0.5 [facility] Comment on above: Performed By: #### Elliott CHAVEZ #### [facility] , Platelet Estimate Normal Normal Normal [facility] Comment on above: Performed By: #### Elliott CHAVEZ #### [facility] , Platelet mean volume (Bld) [Entitic vol] 8.0 fL Normal 6.6-10.1 [facility] Comment on above: Performed By: #### Elliott CHAVEZ #### [facility] , Platelet Morphology Normal Normal Normal [facility] Comment on above: Performed By: #### Elliott CHAVEZ #### [facility] , Platelets (Bld) [#/Vol] 177 10*3/uL Normal 150-450 [facility] Comment on above: Performed By: #### Elliott CHAVEZ #### [facility] , RBC (Bld) [#/Vol] 4.92 10*6/uL Normal 3.90-5.60 [facility] Comment on above: Performed By: #### Elliott CHAVEZ #### [facility] , RBC morphology finding Nom (Bld) Normal Normal Normal [facility] Comment on above: Performed By: #### Elliott CHAVEZ #### [facility] , WBC (Bld) [#/Vol] 4.4 10*3/uL Normal 4.1-10.5 [facility] Comment on above: Performed By: #### Elliott CHAVEZ #### [facility] , Serum or plasma albumin/glob ulin mass ratioOrdered By: Romel Davis on 01-14-2025 Albumin/Globulin [Mass ratio] Serum or plasma albumin/globulin mass ratio [facility] Serum or plasma anion gap de terminationOrdered By: Romel Davis on 01-14-2025 Anion gap [Moles/Vol] Serum or plasma an ion gap determination 6.0-15.[address] [facility] Serum or plasma complement C 3 measurement (mass/volume)Ordered By: Romel Davis on 01-14-2025 Complement C3 [Mass/Vol] Serum or plasma complement C3 measurement (mass/volume) 82-[address] [facility] Comment on above: Performed at: [facility] [address] [id number] Director: Richy Ardon PhD, Phone: [phone] Serum or plasma complement C 4 measurement (mass/volume)Ordered By: Romel Davis on 01-14-2025 Complement C4 [Mass/Vol] Serum or plasma complement C4 measurement (mass/volume) 12-[address] [facility] Sodium [Moles/volume] in Ser um or PlasmaOrdered By: Romel Davis on 01-14-2025 Sodium [Moles/Vol] Sodium [Moles/volume ] in Serum or Plasma 136-[address] [facility] Specific gravity Test strip (U) [Rel density]Ordered By: Romel Davis on 01-14-2025 Specific gravity (U) [Rel density] Specific gravity of Urine by Test strip 1.001-1.[address] [facility] Total hemolytic complement C H50 assayOrdered By: Romel Davis on 01-14-2025 Total Complement (CH50) 57 U/mL >[address] [facility] Comment on above: Age Male Female [...] to determine out of range values.Performed at: [facility] [address] [place], [place] [id number] Director: Richy Ardon PhD, Phone: [phone] Urea nitrogen [Mass/volume] in Serum or PlasmaOrdered By: Romel Davis on 01-14-2025 Urea nitrogen [Mass/Vol] Urea nitrogen [Mass/volume] in Serum or Plasma 06-[address] [facility] Urobilinogen Test strip (U) [Mass/Vol]Ordered By: Romel Davis on 01-14-2025 Urobilinogen (U) [Mass/Vol] Urobilinogen [Mass/volume] in Urine by Test strip Normal [facility] WBC Auto (Bld) [#/Vol]Ordere d By: Romel Davis on 01-14-2025 WBC (Bld) [#/Vol] Leukocytes [#/volume ] in Blood by Automated count 4.1-10.[address] [facility] pH Test strip (U)Ordered By: Romel Davis on 01-14-2025 pH (U) pH of Urine by Test strip 5.0-9.[address] [facility] CT head/brain wo conon 01-12 CT head/brain wo con [facility] [place] [address] CT Scan Report Signed Patient: Valentin Torre MR#: [id number] [birth year] : 1955 Acct:[id number] Age/Sex: 69 / M ADM Date: 01/12/25 Loc: ER Room: Type: [facility] ER Attending Dr: Copies to: Matthew [...] ACUTE INTRACRANIAL ABNORMALITY. 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 Impression dictated by: Alo Mayer M.D.01/12/2025 2:28 PM Dictation Location: [place] [address] Transcribed By: MARV 01/12/25 1428 Dictated By: Alo Mayer MD 01/12/25 1426 Signed By: 01/12/25 1428 Normal [facility] CT lumbar spine wo conon CT lumbar spine wo con [facility] [address] [place] [address] [place] [address] CT Scan Report Signed Patient: Valentin Torre MR#: [id number] [birth year] : 1955 Acct:[id number] Age/Sex: 69 / M ADM Date: 01/12/25 Loc: ER Room: Type: [facility] ER Attending Dr: Copies to: Matthew [...] MRI 01/10/2024 FINDINGS: L5-S1: Mild disc disease. Aejs-tm-bytckcgv neural from narrowing. Advanced facet arthropathy. Laminectomy. L4-5 Postsurgical changes L4-5 status post the decompressive laminectomy and posterior fusion and discectomy. Stable 5 mm of anterolisthesis. Lpyx-yq-xhoftmah foraminal narrowing at this level. L3-4 Moderate [...] Alo Mayer M.D.01/12/2025 2:53 PM Dictation Location: [facility] Transcribed By: [facility] 01/12/25 1453 Dictated By: Alo Mayer MD 01/12/25 1438 Signed By: 01/12/25 1453 Normal [facility] X-ray reportOrdered By: Jorge Mayer on 01-12-2025 Study report [facility] [place] [address] XRay Report Signed Patient: Valentin Torre MR#: [id number] : 1955 Acct:[id number] Age/Sex: 69 / M ADM Date: 5 Loc: ER Room: Type: [facility] ER Attending Dr: Copies to: Matthew [...] 3:08 PM Dictation Location: [facility] Transcribed By: [facility] 01/12/25 1508 Dictated By: Alo Mayer MD 01/12/25 1507 Signed By: 01/12/[address] [facility] Work Phone: XR knee RT 2Von 01-12-2025 XR knee RT 2V [facility] [place] [address] XRay Report Signed Patient: Valentin Torre MR#: [id number] [birth year] : 1955 Acct:[id number] Age/Sex: 69 / M ADM Date: 01/12/25 Loc: ER Room: Type: [facility] ER Attending Dr: Copies to: Matthew Harrell PA-C Ordering Provider: Matthew aHrrell PA-C Date of Service: 01/12/25 XR/XR knee RT 2V: Fall , patella tenderness RIGHT KNEE - 2 views CLINICAL HISTORY: Fall, knee pain COMPARISON: None FINDINGS: Tricompartmental degenerative change. Small joint effusion. No fractures. No dislocation XR/XR knee RT 2V IMPRESSION: Degenerative change. Small joint effusion. No fracture. Impression dictated by: Alo Mayer M.D.01/12/2025 3:08 PM Dictation Location: [facility] Transcribed By: [facility] 01/12/25 1508 Dictated By: Alo Mayer MD 01/12/25 1507 Signed By: 01/12/25 1508 Normal [facility] Alanine aminotransferase [En zymatic activity/volume] in Serum or PlasmaOrdered By: Sascha Sutton on 12-07-2024 ALT [Catalytic activity/Vol] Alanine aminotransferase [Enzymatic activity/volume] in Serum or Plasma [facility] Albumin [Mass/volume] in Ser um or Plasma by Bromocresol green (BCG) dye binding methoOrdered By: Sascha Sutton on 12-07-2024 Albumin BCG dye [Mass/Vol] Albumin [Mass/volume] in Serum or Plasma by Bromocresol green (BCG) dye binding metho 3.5-5.[address] [facility] Alkaline phosphatase [Enzyma tic activity/volume] in Serum or PlasmaOrdered By: Sascha Sutton on 12-07-2024 ALP [Catalytic activity/Vol] Alkaline phosphatase [Enzymatic activity/volume] in Serum or Plasma 34-[address] [facility] Aspartate aminotransferase [ Enzymatic activity/volume] in Serum or PlasmaOrdered By: Sascha Sutton on 12-07-2024 AST [Catalytic activity/Vol] Aspartate aminotransferase [Enzymatic activity/volume] in Serum or Plasma 13-[address] [facility] Bilirubin.total [Mass/volume ] in Serum or PlasmaOrdered By: Sascha Sutton on 12-07-2024 Bilirubin [Mass/Vol] Bilirubin.total [Mass/volume] in Serum or Plasma 0.3-1.[address] [facility] Calcium [Mass/volume] in Ser um or PlasmaOrdered By: Sascha Sutton 12-07-2024 Calcium [Mass/Vol] Calcium [Mass/volume ] in Serum or Plasma 8.6-10.[address] [facility] Carbon dioxide, total [Moles /volume] in Serum or PlasmaOrdered By: Sascha Sutton on 12-07-2024 CO2 [Moles/Vol] Carbon dioxide, tota l [Moles/volume] in Serum or Plasma 21.0-31.[address] [facility] Chloride [Moles/volume] in S ace or PlasmaOrdered By: Sascha Sutton 12-07-2024 Chloride [Moles/Vol] Chloride [Moles/vol ume] in Serum or Plasma High 98-[address] [facility] Cholesterol [Mass/volume] in Serum or PlasmaOrdered By: Sascha Sutton on 12-07-2024 Cholesterol [Mass/Vol] Cholesterol [Mass /volume] in Serum or Plasma Low 140-[address] [facility] Comment on above: Chol less than 200 m g/dl low riskChol 201-239 mg/dl borderline riskChol 240 mg/dl and greater high risk Cholesterol in HDL [Mass/vol ume] in Serum or PlasmaOrdered By: Sascha Sutton on 12-07-2024 Cholesterol in HDL [Mass/Vol] Serum or plasma high density lipoprotein (HDL) cholesterol measurement 23-[address] [facility] Comment on above: HDL CHOL ATP-III CLA SSIFICATION Cardiovascular RiskHDL > or equal to 60 mg/dL LOWHDL < 40 mg/dL HIGH Cholesterol in LDL Calc [Mas s/Vol]Ordered By: Sascha Sutton on 12-07-2024 Cholesterol in LDL [Mass/Vol] Cholesterol in LDL [Mass/volume] in Serum or Plasma by calculation 0-[address] [facility] Comment on above: LDL ATP III CLASSIFI CATIONLDL less than 100 mg/dL OptimalLDL 100-129 mg/dL Near or above optimalLDL 130-159 mg/dL Borderline highLDL 160-189 mg/dL HighLDL greater than 189 mg/dL Very high Cholesterol in VLDL Calc [Ma ss/Vol]Ordered By: Sascha Sutton on 12-07-2024 Cholesterol in VLDL [Mass/Vol] Cholesterol in VLDL [Mass/volume] in Serum or Plasma by calculation [facility] Comprehensive Metabolic Pane vivek 12-07-2024 Albumin [Mass/Vol] 4.1 g/dL Normal 3.5-5.7 [facility] Comment on above: Performed By: #### C RP #### [facility] [address] Albumin/Globulin [Mass ratio] 1.8 {ratio} Normal [facility] Comment on above: Performed By: #### C RP #### [facility] [address] [place] [id number] [facility] ALP [Catalytic activity/Vol] 82 U/L Normal 34-104 [facility] Comment on above: Performed By: #### C RP #### [facility] [address] [place] [address] [place] ALT [Catalytic activity/Vol] 28 U/L Normal 7-52 [facility] Comment on above: Performed By: #### C RP #### [facility] [address] [place] [phone] [place] Anion gap [Moles/Vol] 10.2 mmol/L Normal 6.0-15.0 [facility] Comment on above: Performed By: #### C RP #### [facility] [address] AST [Catalytic activity/Vol] 17 U/L Normal 13-39 [facility] Comment on above: Performed By: #### C RP #### [address] Bilirubin [Mass/Vol] 0.6 mg/dL Normal 0.3-1.0 [facility] Comment on above: Performed By: #### C RP #### [address] Calcium [Mass/Vol] 8.9 mg/dL Normal 8.6-10.3 [facility] Comment on above: Performed By: #### C RP #### [address] Chloride [Moles/Vol] 110 mmol/L High 98-107 [facility] Comment on above: Performed By: #### C RP #### [address] CO2 [Moles/Vol] 22.8 mmol/L Normal 21.0-31.0 [facility] Comment on above: Performed By: #### C RP #### [address] Creatinine [Mass/Vol] 0.85 mg/dL Normal 0.70-1.30 [facility] Comment on above: Performed By: #### C RP #### [address] GFR/1.73 sq M.predicted MDRD (S/P/Bld) [Vol rate/Area] mL/min/{1.73_m2} Normal [facility] Comment on above: Performed By: #### C RP #### [address] Globulin (S) [Mass/Vol] 2.3 g/dL Normal [facility] Comment on above: Performed By: #### C RP #### [address] Glucose [Mass/Vol] 97 mg/dL Normal 70-100 [facility] Comment on above: Result Comment: [facility] Glucose Reference Range is dependent on time and content of last meal. Glucose of more than 200 mg/dL in a nonstressed, ambulatory subject supports the diagnosis of Diabetes Mellitus. ADA recommended reference range Performed By: #### C RP #### [facility] [address] Potassium [Moles/Vol] 4.0 mmol/L Normal 3.5-5.1 [facility] Comment on above: Performed By: #### C RP #### [facility] [address] Protein [Mass/Vol] 6.4 g/dL Normal 6.4-8.9 [facility] Comment on above: Performed By: #### C RP #### [facility] [address] [place] [address] [place] Sodium [Moles/Vol] 139 mmol/L Normal 136-145 [facility] Comment on above: Performed By: #### C RP #### [facility] [address] Urea nitrogen [Mass/Vol] 29 mg/dL High 7-25 [facility] Comment on above: Performed By: #### C RP #### [facility] [address] Creatinine [Mass/volume] in Serum or PlasmaOrdered By: Sascha Sutton on 12-07-2024 Creatinine [Mass/Vol] Creatinine [Mass/v olume] in Serum or Plasma 0.70-1.[address] [facility] Globulin Calc (S) [Mass/Vol] Ordered By: Sascha Sutton on 12-07-2024 Globulin (S) [Mass/Vol] Serum globulin measurement by calculation (mass/volume) [facility] Glucose [Mass/volume] in Ser um or PlasmaOrdered By: Sascha Sutton on 12-07-2024 Glucose [Mass/Vol] Glucose [Mass/volume ] in Serum or Plasma 70-[address] [facility] Comment on above: ADA recommended refe rence rangeRandom Glucose Reference Range is dependent on time and content of last meal. Glucose of more than 200 mg/dL in a nonstressed, ambulatory subject supports the diagnosis of Diabetes Mellitus. Lipid Panelon 12-07-2024 Cholesterol [Mass/Vol] 125 mg/dL Low 140-200 [facility] Comment on above: Result Comment: Chol less than 200 mg/dl low risk Chol 201-239 mg/dl borderline risk Chol 240 mg/dl and greater high risk Performed By: #### C RP #### [facility] [address] Cholesterol in HDL [Mass/Vol] 53 mg/dL Normal 23-92 [facility] Comment on above: Result Comment: HDL CHOL ATP-III CLASSIFICATION Cardiovascular Risk HDL > or equal to 60 mg/dL LOW HDL < 40 mg/dL HIGH Performed By: #### C RP #### [address] Cholesterol.total/Chol esterol in HDL [Mass ratio] 2.4 {ratio} Normal <5.0 [facility] Comment on above: Result Comment: PERF ORMED BY: [place] [address] PATHOLOGIST STUDIO DESIGNER HECTOR MEJIA M.D. Performed By: #### C RP #### [address] LDL Cholesterol,Calculated 61 mg/dL Normal 0-100 [facility] Comment on above: Result Comment: LDL ATP III CLASSIFICATION LDL less than 100 mg/dL Optimal LDL 100-129 mg/dL Near or above optimal LDL 130-159 mg/dL Borderline high LDL 160-189 mg/dL High LDL greater than 189 mg/dL Very high Performed By: #### C RP #### [place] [address] [place] Triglyceride w/Reflex 54 mg/dL Normal 0-149 [facility] Comment on above: Result Comment: TRIG ATP III CLASSIFICATION TRIG less than 150 mg/dL Normal TRIG 150-199 mg/dL Borderline high TRIG 200-500 mg/dL High TRIG greater than 500 mg/dL Very high Standard traceable to the Center for Disease Conrtrol and Prevention (CDC) test method. Performed By: #### C RP #### [facility] [address] [place] [address] [place] VLDL CHOLESTEROL 10 mg/dL Normal [facility] Comment on above: Performed By: #### C RP #### [facility] [address] [place] [id number] [facility] No Panel InformationOrdered By: Sascha Sutton on 12-07-2024 Estimated GFR (CKD-EPI) > 60.0 mL/Min [facility] Creatinine Clearance (Chem N/A [facility] PSA Screen (Yearly Only)on 0 12-07-2024 PSA Screen (Yearly Only) 2.510 ng/mL Normal 0.000-4.00 0 [facility] Comment on above: Order Comment: Is pa tient <50 yrs? Medicare does not pay <50.: Y What is the date of the last PSA Screen?: 04/08/23 Is Medicare the insurance?: Y Did you verify eligibility (Dx Time) check TestViewGp: YES TO ALL Result Comment: Seri al tumor marker results determined by assays using different manufacturers or methods may not be comparable. 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 PERFORMED BY: [place] [address] PATHOLOGIST STUDIO DESIGNER HECTOR MEJIA M.D. Performed By: #### C RP #### [place] [id number] [facility] Potassium [Moles/volume] in Serum or PlasmaOrdered By: Sascha Sutton on 12-07-2024 Potassium [Moles/Vol] Potassium [Moles/v olume] in Serum or Plasma 3.5-5.[address] [facility] Prostate specific Ag [Mass/v olume] in Serum or PlasmaOrdered By: Sascha Sutton on 12-07-2024 Prostate specific Ag [Mass/Vol] Prostate specific Ag [Mass/volume] in Serum or Plasma 0.000-4.[address] [facility] Comment on above: Serial tumor marker results determined by assays using different manufacturers or methods may not be comparable.[facility] sorority supervisor and method:[employer] DXI, CHEMILUMINESCENT IMMUNOASSAY. Protein [Mass/volume] in Ser um or PlasmaOrdered By: Sascha Sutton on 12-07-2024 Protein [Mass/Vol] Protein [Mass/volume ] in Serum or Plasma 6.4-8.[address] [facility] Serum or plasma albumin/glob ulin mass ratioOrdered By: Sascha Sutton on 12-07-2024 Albumin/Globulin [Mass ratio] Serum or plasma albumin/globulin mass ratio [facility] Serum or plasma anion gap de terminationOrdered By: Sascha Sutton on 12-07-2024 Anion gap [Moles/Vol] Serum or plasma an ion gap determination 6.0-15.[address] [facility] Serum or plasma total choles terol/high density lipoprotein (HDL) cholesterol mass ratOrdered By: Sascha Sutton on 12-07-2024 Cholesterol.total/Chol esterol in HDL [Mass ratio] Serum or plasma total cholesterol/high density lipoprotein (HDL) cholesterol mass rat <5.[address] [facility] Sodium [Moles/volume] in Ser um or PlasmaOrdered By: Sascha Sutton on 12-07-2024 Sodium [Moles/Vol] Sodium [Moles/volume ] in Serum or Plasma 136-[address] [facility] Triglyceride [Mass/volume] i n Serum or PlasmaOrdered By: Sascha Sutton on 12-07-2024 Triglyceride [Mass/Vol] Triglyceride [Mass/volume] in Serum or Plasma 0-[address] [facility] Comment on above: TRIG ATP III [...] [Mass/volume] in Serum or Plasma High 7-[address] [facility] MR hip RT wo conon 4 MR hip RT wo con [facility] [place] [address] MRI Report Signed Patient: Valentin Torre MR#: [id number] [birth year] : 1955 Acct:[id number] Age/Sex: 69 / M ADM Date: 11/05/24 [facility]: Type: [facility] CLI Attending Dr: Jaime Murcia II, MD Copies [...] Patel Jr., D.O.11/05/2024 12:53 PM Dictation Location: [place] [address] Transcribed By: [facility] 11/05/24 1253 Dictated By: Marcial Patel Jr, DO 11/05/24 1248 Signed By: 11/05/24 1253 Normal [facility] Alanine aminotransferase [En zymatic activity/volume] in Serum or PlasmaOrdered By: Romel Davis on 10-10-2024 ALT [Catalytic activity/Vol] Alanine aminotransferase [Enzymatic activity/volume] in Serum or Plasma [facility] Albumin [Mass/volume] in Ser um or Plasma by Bromocresol green (BCG) dye binding methoOrdered By: Romel Davis on 10-10-2024 Albumin BCG dye [Mass/Vol] Albumin [Mass/volume] in Serum or Plasma by Bromocresol green (BCG) dye binding metho 3.5-5.[address] [facility] Alkaline phosphatase [Enzyma tic activity/volume] in Serum or PlasmaOrdered By: Romel Davis on 10-10-2024 ALP [Catalytic activity/Vol] Alkaline phosphatase [Enzymatic activity/volume] in Serum or Plasma 34-[address] [facility] Appearance of UrineOrdered B y: Romel Davis on 10-10-2024 Appearance (U) Urine appearance Clear [facility] Aspartate aminotransferase [ Enzymatic activity/volume] in Serum or PlasmaOrdered By: Romel Davis on 10-10-2024 AST [Catalytic activity/Vol] Aspartate aminotransferase [Enzymatic activity/volume] in Serum or Plasma 13-[address] [facility] Bacteria [Presence] in Urine by AutomatedOrdered By: Romel Davis on 10-10-2024 Bacteria Auto Ql (U) Bacteria [Presence] in Urine by Automated None Seen [facility] Basophils Auto (Bld) [#/Vol] Ordered By: Romel Davis on 10-10-2024 Basophils (Bld) [#/Vol] Automated basophil count 0.0-0.2 [facility] Basophils/100 WBC Auto (Bld) Ordered By: Romel Davis on 10-10-2024 Basophils/100 WBC (Bld) Automated basophil % . [facility] Bilirubin Test strip Ql (U)O rdered By: Romel Davis on 10-10-2024 Bilirubin Ql (U) Bilirubin.total [Pre sence] in Urine by Test strip Negative [facility] Bilirubin.total [Mass/volume ] in Serum or PlasmaOrdered By: Romel Davis on 10-10-2024 Bilirubin [Mass/Vol] Bilirubin.total [Mass/volume] in Serum or Plasma 0.3-1.[address] [facility] Calcium [Mass/volume] in Ser um or PlasmaOrdered By: Romel Davis on 10-10-2024 Calcium [Mass/Vol] Calcium [Mass/volume ] in Serum or Plasma 8.6-10.[address] [facility] Carbon dioxide, total [Moles /volume] in Serum or PlasmaOrdered By: Romel Davis on 10-10-2024 CO2 [Moles/Vol] Carbon dioxide, tota l [Moles/volume] in Serum or Plasma 21.0-31.[address] [facility] Chloride [Moles/volume] in S ace or PlasmaOrdered By: Romel Davis on 10-10-2024 Chloride [Moles/Vol] Chloride [Moles/vol ume] in Serum or Plasma 98-[address] [facility] Color Auto (U)Ordered By: Bridgett Davis on 10-10-2024 Color (U) Color of Urine by Auto Yellow [facility] Complement C3on 10-10-2024 Complement C3 130 mg/dL Normal 82-167 [facility] Comment on above: Result Comment: Perf ormed at: [address] [id number] Reconditioning Associate: Richy Ardon PhD, Phone: [phone] Performed By: #### E SR #### [address] Complement C4on 10-10-2024 Complement C4 13 mg/dL Normal 12-38 [facility] Comment on above: Result Comment: PERF ORMED BY: [place] [address] PATHOLOGIST STUDIO DESIGNER HECTOR MEJIA M.D. Performed By: #### E SR #### [address] Complement Total (CH50)on Complement Total (CH50) 59 Normal >41 [facility] Comment on above: Result Comment: [...] determine out of range values. Performed at: [address] [id number] Reconditioning Associate: Richy Ardon PhD, Phone: [phone] PERFORMED BY: [place] [address] PATHOLOGIST STUDIO DESIGNER HECTOR MEJIA M.D. Performed By: #### E SR #### [address] Complete Blood Count Auto Di ffon 10-10-2024 Basophils (Bld) [#/Vol] 0.1 10*3/uL Normal 0.0-0.2 [facility] Comment on above: Performed By: #### E SR #### [address] Basophils/100 WBC (Bld) 0.9 % Normal . [facility] Comment on above: Performed By: #### E SR #### [address] Eosinophils (Bld) [#/Vol] 0.1 10*3/uL Normal 0.0-0.45 [facility] Comment on above: Performed By: #### E SR #### [address] Eosinophils/100 WBC (Bld) 1.5 % Normal . [facility] Comment on above: Performed By: #### E SR #### [address] Erythrocyte distribution width (RBC) [Ratio] 14.5 % Normal 12.0-14.8 [facility] Comment on above: Performed By: #### E SR #### [address] Hematocrit (Bld) [Volume fraction] 44.8 % Normal 38.8-50.0 [facility] Comment on above: Performed By: #### E SR #### [address] Hemoglobin (Bld) [Mass/Vol] 15.4 g/dL Normal 13.0-17.0 [facility] Comment on above: Performed By: #### E SR #### [place] [address] [place] Lymphocytes (Bld) [#/Vol] 0.9 10*3/uL Low 1.00-4.8 [facility] Comment on above: Performed By: #### E SR #### [address] Lymphocytes/100 WBC (Bld) 12.7 % Normal . [facility] Comment on above: Performed By: #### E SR #### [address] MCH (RBC) [Entitic mass] 31.2 pg Normal 27.5-35.2 [facility] Comment on above: Performed By: #### E SR #### [address] MCV (RBC) [Entitic vol] 90.6 fL Normal 83.5-101 [facility] Comment on above: Performed By: #### E SR #### [address] Mean Corpuscular HGB Conc 34.4 g/dL Normal 32.5-35.6 [facility] Comment on above: Performed By: #### E SR #### [address] Monocytes (Bld) [#/Vol] 0.9 10*3/uL High 0.0-0.8 [facility] Comment on above: Performed By: #### E SR #### [address] Monocytes/100 WBC (Bld) 12.1 % Normal . [facility] Comment on above: Performed By: #### E SR #### [address] Neutrophils (Bld) [#/Vol] 5.2 10*3/uL Normal 1.8-7.7 [facility] Comment on above: Performed By: #### E SR #### [address] Neutrophils/100 WBC (Bld) 72.8 % Normal . [facility] Comment on above: Performed By: #### E SR #### [address] NRBC% 0.2 /100{WBC} Normal 0-0.5 [facility] Comment on above: Performed By: #### E SR #### [address] Platelet mean volume (Bld) [Entitic vol] 8.0 fL Normal 6.6-10.1 [facility] Comment on above: Performed By: #### E SR #### [address] Platelets (Bld) [#/Vol] 165 10*3/uL Normal 150-450 [facility] Comment on above: Performed By: #### E SR #### [address] RBC (Bld) [#/Vol] 4.94 10*6/uL Normal 3.90-5.60 [facility] Comment on above: Performed By: #### E SR #### [address] WBC (Bld) [#/Vol] 7.2 10*3/uL Normal 4.1-10.5 [facility] Comment on above: Performed By: #### E SR #### [address] Comprehensive Metabolic Pane vivek 10-10-2024 Albumin [Mass/Vol] 4.0 g/dL Normal 3.5-5.7 [facility] Comment on above: Performed By: #### R A #### [facility] , Albumin/Globulin [Mass ratio] 1.9 {ratio} Normal [facility] Comment on above: Performed By: #### R A #### [facility] , ALP [Catalytic activity/Vol] 85 U/L Normal 34-104 [facility] Comment on above: Result Comment: PERF ORMED BY: [place] [address] PATHOLOGIST STUDIO DESIGNER HECTOR MEJIA M.D. Performed By: #### R A #### [facility] , ALT [Catalytic activity/Vol] 27 U/L Normal 7-52 [facility] Comment on above: Performed By: #### R A #### [facility] , Anion gap [Moles/Vol] 11.3 mmol/L Normal 6.0-15.0 [facility] Comment on above: Performed By: #### R A #### [facility] , AST [Catalytic activity/Vol] 16 U/L Normal 13-39 [facility] Comment on above: Performed By: #### R A #### [facility] , Bilirubin [Mass/Vol] 0.5 mg/dL Normal 0.3-1.0 [facility] Comment on above: Performed By: #### R A #### [facility] , Calcium [Mass/Vol] 8.9 mg/dL Normal 8.6-10.3 [facility] Comment on above: Performed By: #### R A #### [facility] , Chloride [Moles/Vol] 107 mmol/L Normal 98-107 [facility] Comment on above: Performed By: #### R A #### [facility] , CO2 [Moles/Vol] 24.0 mmol/L Normal 21.0-31.0 [facility] Comment on above: Performed By: #### R A #### [facility] , Creatinine [Mass/Vol] 0.95 mg/dL Normal 0.70-1.30 [facility] Comment on above: Performed By: #### R A #### [facility] , GFR/1.73 sq M.predicted MDRD (S/P/Bld) [Vol rate/Area] mL/min/{1.73_m2} Normal [facility] Comment on above: Performed By: #### R A #### [facility] , Globulin (S) [Mass/Vol] 2.1 g/dL Normal [facility] Comment on above: Performed By: #### R A #### [facility] , Glucose [Mass/Vol] 96 mg/dL Normal 70-100 [facility] Comment on above: Result Comment: [place] Glucose Reference Range is dependent on time and content of last meal. Glucose of more than 200 mg/dL in a nonstressed, ambulatory subject supports the diagnosis of Diabetes Mellitus. ADA recommended reference range Performed By: #### R A #### [facility] , Potassium [Moles/Vol] 4.3 mmol/L Normal 3.5-5.1 [facility] Comment on above: Performed By: #### R A #### [facility] , Protein [Mass/Vol] 6.1 g/dL Low 6.4-8.9 [facility] Comment on above: Performed By: #### R A #### [facility] , Sodium [Moles/Vol] 138 mmol/L Normal 136-145 [facility] Comment on above: Performed By: #### R A #### [facility] , Urea nitrogen [Mass/Vol] 28 mg/dL High 7-25 [facility] Comment on above: Performed By: #### R A #### [facility] , Creatinine [Mass/volume] in Serum or PlasmaOrdered By: Romel Davis on 10-10-2024 Creatinine [Mass/Vol] Creatinine [Mass/v olume] in Serum or Plasma 0.70-1.[address] [facility] Dipstick and Microscopicon 1 12-10-2023 Appearance (U) Clear Normal Clear [facility] Comment on above: Order Comment: Name Collection Type:: Clean-Voided Midstream Performed By: #### E SR #### [facility] [address] [place] [id number] [place] Bacteria,Urine None Seen Normal None Seen [facility] Comment on above: Order Comment: Name Collection Type:: Clean-Voided Midstream Performed By: #### E SR #### [facility] [address] [place] [address] [place] Bilirubin,Urine Negative Normal Negative [facility] Comment on above: Order Comment: Name Collection Type:: Clean-Voided Midstream Performed By: #### E SR #### [facility] [address] [place] [address] [place] Color (U) Yellow Normal Yellow [facility] Comment on above: Order Comment: Name Collection Type:: Clean-Voided Midstream Performed By: #### E SR #### [address] Glucose Ql (U) Normal Normal Normal [facility] Comment on above: Order Comment: Name Collection Type:: Clean-Voided Midstream Performed By: #### E SR #### [place] [address] [place] Hyaline Casts,Urine None Normal 0-8 [facility] Comment on above: Order Comment: Name Collection Type:: Clean-Voided Midstream Performed By: #### E SR #### [address] Ketones Ql (U) Negative Normal Negative [facility] Comment on above: Order Comment: Name Collection Type:: Clean-Voided Midstream Performed By: #### E SR #### [place] [address] [place] Leukocyte esterase Test strip Ql (U) Negative Normal Negative [facility] Comment on above: Order Comment: Name Collection Type:: Clean-Voided Midstream Performed By: #### E SR #### [place] [address] [place] Mucus,Urine 1+ Critically abnormal [facility] Comment on above: Order Comment: Name Collection Type:: Clean-Voided Midstream Result Comment: PERF ORMED BY: [place] [address] PATHOLOGIST STUDIO DESIGNER HECTOR MEJIA M.D. Performed By: #### E SR #### [place] [address] [place] Nitrite,Urine Negative Normal Negative [facility] Comment on above: Order Comment: Name Collection Type:: Clean-Voided Midstream Performed By: #### E SR #### [address] Occult Blood,Urine Negative Normal Negative [facility] Comment on above: Order Comment: Name Collection Type:: Clean-Voided Midstream Performed By: #### E SR #### [address] pH (U) 5.5 [pH] Normal 5.0-9.0 [facility] Comment on above: Order Comment: Name Collection Type:: Clean-Voided Midstream Performed By: #### E SR #### [address] Protein (U) [Mass/Vol] 20 mg/dL High Negative [facility] Comment on above: Order Comment: Name Collection Type:: Clean-Voided Midstream Performed By: #### E SR #### [address] RBC,Urine 1 [HPF] Normal 0-4 [facility] Comment on above: Order Comment: Name Collection Type:: Clean-Voided Midstream Performed By: #### E SR #### [address] Specificy [place],Urine 1.029 Normal 1.001-1.03 0 [facility] Comment on above: Order Comment: Name Collection Type:: Clean-Voided Midstream Performed By: #### E SR #### [address] Urobilinogen,Urine Normal Normal Normal [facility] Comment on above: Order Comment: Name Collection Type:: Clean-Voided Midstream Performed By: #### E SR #### [place] [address] [place] WBC,Urine 1 [HPF] Normal 0-4 [facility] Comment on above: Order Comment: Name Collection Type:: Clean-Voided Midstream Performed By: #### E SR #### [place] [address] [place] Eosinophils Auto (Bld) [#/Vo l]Ordered By: Romel Davis on 10-10-2024 Eosinophils (Bld) [#/Vol] Automated eosinophil count 0.0-0.45 [facility] Eosinophils/100 WBC Auto (Bl d)Ordered By: Romel Davis on 10-10-2024 Eosinophils/100 WBC (Bld) Automated eosinophil % . [facility] Epithelial cells.squamous [# /area] in Urine sediment by Automated countOrdered By: Romel Davis on 10-10-2024 Epithelial cells.squamous Auto (Urine sed) [#/Area] Epithelial cells.squamous [#/area] in Urine sediment by Automated count [facility] Erythrocyte Sedimentation Ra bruno 10-10-2024 ESR (Bld) [Velocity] 6 mm/h Normal 0-19 [facility] Comment on above: Result Comment: PERF ORMED BY: [place] [address] PATHOLOGIST STUDIO DESIGNER HECTOR MEJIA M.D. Performed By: #### E SR #### [address] Erythrocyte distribution wid th Auto (RBC) [Ratio]Ordered By: Romel Davis on 10-10-2024 Erythrocyte distribution width (RBC) [Ratio] Erythrocyte distribution width [Ratio] by Automated count 12.0-14.[address] [facility] Erythrocyte sedimentation ra te by Photometric methodOrdered By: Romel Davis on 10-10-2024 ESR Photometric method (Bld) [Velocity] Erythrocyte sedimentation rate by Photometric method 0-[address] [facility] Erythrocytes [#/area] in Uri ne sediment by Automated countOrdered By: Romel Davis on 10-10-2024 RBC Auto (Urine sed) [#/Area] Erythrocytes [#/area] in Urine sediment by Automated count 0-[address] [facility] Globulin Calc (S) [Mass/Vol] Ordered By: Romel Davis on 10-10-2024 Globulin (S) [Mass/Vol] Serum globulin measurement by calculation (mass/volume) [facility] Glucose [Mass/volume] in Ser um or PlasmaOrdered By: Romel Davis on 10-10-2024 Glucose [Mass/Vol] Glucose [Mass/volume ] in Serum or Plasma 70-[address] [facility] Comment on above: ADA recommended refe [...] [Mass/volume] in Urine by Test strip Normal [facility] Hematocrit Auto (Bld) [Volum e fraction]Ordered By: Romel Davis on 10-10-2024 Hematocrit (Bld) [Volume fraction] Hematocrit [Volume Fraction] of Blood by Automated count 38.8-50.[address] [facility] Hemoglobin Test strip Ql (U) Ordered By: Romel Davis on 10-10-2024 Hemoglobin Ql (U) Hemoglobin [Presence ] in Urine by Test strip Negative [facility] Hemoglobin [Mass/volume] in BloodOrdered By: Romel Davis on 10-10-2024 Hemoglobin (Bld) [Mass/Vol] Hemoglobin [Mass/volume] in Blood 13.0-17.[address] [facility] Hyaline casts [#/area] in Ur ine sediment by Automated countOrdered By: Romel Davis on 10-10-2024 Hyaline casts Auto (Urine sed) [#/Area] Hyaline casts [#/area] in Urine sediment by Automated count 0-[address] [facility] Ketones Test strip Ql (U)Ord ered By: Romel Davis on 10-10-2024 Ketones Ql (U) Ketones [Presence] i n Urine by Test strip Negative [facility] Leukocyte esterase [Presence ] in Urine by Test stripOrdered By: Romel Davis on 10-10-2024 Leukocyte esterase Test strip Ql (U) Leukocyte esterase [Presence] in Urine by Test strip Negative [facility] Leukocytes [#/area] in Urine sediment by Automated countOrdered By: Romel Davis on 10-10-2024 WBC Auto (Urine sed) [#/Area] Leukocytes [#/area] in Urine sediment by Automated count 0-[address] [facility] Leukocytes [#/volume] correc nat for nucleated erythrocytes in Blood by Automated counOrdered By: Romel Davis on 10-10-2024 WBC corrected for nucl RBC Auto (Bld) [#/Vol] Leukocytes [#/volume] corrected for nucleated erythrocytes in Blood by Automated coun 4.1-10.[address] [facility] Lymphocytes Auto (Bld) [#/Vo l]Ordered By: Romel Davis on 10-10-2024 Lymphocytes (Bld) [#/Vol] Lymphocytes [#/volume] in Blood by Automated count Low 1.00-4.[address] [facility] Lymphocytes/100 WBC Auto (Bl d)Ordered By: Romel Davis on 10-10-2024 Lymphocytes/100 WBC (Bld) Lymphocytes/100 leukocytes in Blood by Automated count . [facility] MCH Auto (RBC) [Entitic mass ]Ordered By: Romel Davis on 10-10-2024 MCH (RBC) [Entitic mass] MCH [Entitic mass] by Automated count 27.5-35.[address] [facility] MCHC Auto (RBC) [Mass/Vol]Or dered By: Romel Davis on 10-10-2024 MCHC (RBC) [Mass/Vol] MCHC [Mass/volume] by Automated count 32.5-35.[address] [facility] MCV Auto (RBC) [Entitic vol] Ordered By: Romel Davis on 10-10-2024 MCV (RBC) [Entitic vol] MCV [Entitic volume] by Automated count 83.5-[address] [facility] Monocytes Auto (Bld) [#/Vol] Ordered By: Romel Davis on 10-10-2024 Monocytes (Bld) [#/Vol] Automated blood monocyte count High 0.0-0.[address] [facility] Monocytes/100 WBC Auto (Bld) Ordered By: Romel Davis on 10-10-2024 Monocytes/100 WBC (Bld) Automated monocyte % . [facility] Mucus [Presence] in Urine by AutomatedOrdered By: Romel Davis on 10-10-2024 Mucus Auto Ql (U) Mucus [Presence] in Urine by Automated Abnormal [facility] Neutrophils Auto (Bld) [#/Vo l]Ordered By: Romel Davis on 10-10-2024 Neutrophils (Bld) [#/Vol] Neutrophils [#/volume] in Blood by Automated count 1.8-7.[address] [facility] Neutrophils/100 WBC Auto (Bl d)Ordered By: Romel Davis on 10-10-2024 Neutrophils/100 WBC (Bld) Automated neutrophil % . [facility] Nitrite Test strip Ql (U)Ord ered By: Romel Davis on 10-10-2024 Nitrite Ql (U) Nitrite [Presence] i n Urine by Test strip Negative [facility] No Panel InformationOrdered By: Romel Davis on 10-10-2024 Estimated GFR (CKD-EPI) > 60.0 mL/Min [facility] Creatinine Clearance (Chem N/A [facility] Nucleated erythrocytes [Pres ence] in Blood by Automated countOrdered By: Romel Davis on 10-10-2024 Nucleated RBC Auto Ql (Bld) Nucleated erythrocytes [Presence] in Blood by Automated count 0-0.[address] [facility] Platelet mean volume Auto (B ld) [Entitic vol]Ordered By: Romel Davis on 10-10-2024 Platelet mean volume (Bld) [Entitic vol] Platelet mean volume [Entitic volume] in Blood by Automated count 6.6-10.[address] [facility] Platelets Auto (Bld) [#/Vol] Ordered By: Romel Davis on 10-10-2024 Platelets (Bld) [#/Vol] Platelets [#/volume] in Blood by Automated count 150-[address] [facility] Potassium [Moles/volume] in Serum or PlasmaOrdered By: Romel Davis on 10-10-2024 Potassium [Moles/Vol] Potassium [Moles/v olume] in Serum or Plasma 3.5-5.[address] [facility] Protein Test strip (U) [Mass /Vol]Ordered By: Romel Davis on 10-10-2024 Protein (U) [Mass/Vol] Protein [Mass/vol ume] in Urine by Test strip High Negative [facility] Protein [Mass/volume] in Ser um or PlasmaOrdered By: Romel Davis on 10-10-2024 Protein [Mass/Vol] Protein [Mass/volume ] in Serum or Plasma Low 6.4-8.[address] [facility] RBC Auto (Bld) [#/Vol]Ordere d By: Romel Davis on 10-10-2024 RBC (Bld) [#/Vol] Erythrocytes [#/volu me] in Blood by Automated count 3.90-5.[address] [facility] Serum or plasma albumin/glob ulin mass ratioOrdered By: Romel Davis on 10-10-2024 Albumin/Globulin [Mass ratio] Serum or plasma albumin/globulin mass ratio [facility] Serum or plasma anion gap de terminationOrdered By: Romel Davis on 10-10-2024 Anion gap [Moles/Vol] Serum or plasma an ion gap determination 6.0-15.[address] [facility] Serum or plasma complement C 3 measurement (mass/volume)Ordered By: Romel Davis on 10-10-2024 Complement C3 [Mass/Vol] Serum or plasma complement C3 measurement (mass/volume) 82-[address] [facility] Comment on above: Performed at: [place] [id number] Director: Richy Ardon PhD, Phone: [phone] Serum or plasma complement C 4 measurement (mass/volume)Ordered By: Romel Davis on 10-10-2024 Complement C4 [Mass/Vol] Serum or plasma complement C4 measurement (mass/volume) 12-[address] [facility] Sodium [Moles/volume] in Ser um or PlasmaOrdered By: Romel Davis on 10-10-2024 Sodium [Moles/Vol] Sodium [Moles/volume ] in Serum or Plasma 136-[address] [facility] Specific gravity Test strip (U) [Rel density]Ordered By: Romel Davis on 10-10-2024 Specific gravity (U) [Rel density] Specific gravity of Urine by Test strip 1.001-1.[address] [facility] Total hemolytic complement C H50 assayOrdered By: Romel Davis on 10-10-2024 Total Complement (CH50) 59 U/mL >[address] [facility] Comment on above: Age Male Female [...] to determine out of range values.Performed at: [employer] [id number] Director: Richy Ardon PhD, Phone: [phone] Urea nitrogen [Mass/volume] in Serum or PlasmaOrdered By: Romel Davis on 10-10-2024 Urea nitrogen [Mass/Vol] Urea nitrogen [Mass/volume] in Serum or Plasma High 7-[address] [facility] Urobilinogen Test strip (U) [Mass/Vol]Ordered By: Romel Davis on 10-10-2024 Urobilinogen (U) [Mass/Vol] Urobilinogen [Mass/volume] in Urine by Test strip Normal [facility] WBC Auto (Bld) [#/Vol]Ordere d By: Romel Davis on 10-10-2024 WBC (Bld) [#/Vol] Leukocytes [#/volume ] in Blood by Automated count 4.1-10.[address] [facility] pH Test strip (U)Ordered By: Romel Davis on 10-10-2024 pH (U) pH of Urine by Test strip 5.0-9.[address] [facility] XR chest 2V*on 09-19-2024 XR chest 2V* [facility] [place] [address] XRay Report Signed Patient: Valentin Torre MR#: [id number] [birth year] : 1955 Acct:[id number] Age/Sex: 69 / M ADM Date: 09/19/24 Loc: XDUC Room: Type: [facility] Attending Dr: Myriam Fonseca APRN Copies [...] ABNORMALITY. Impression dictated by: Marcial Patel Jr., DRigoORigo09/19/2024 10:00 AM Dictation Location: [place] [address] Transcribed By: [facility] 09/19/24 1000 Dictated By: Marcial Patel Jr, DO 09/19/24 1000 Signed By: 09/19/24 1000 Normal [facility] Ambulatory Visit Summaryon 1 Ambulatory [...] Where: [facility] [address], [place] [phone]- [phone] Medications What How Much When Why Instructions [...] or concerns Unchanged omeprazole (omeprazole 40 mg Guzman-) By Mouth Every day Contact prescribing physician [...] laser th (more content not included)... Normal [facility] Urology Office/Clinic Noteon 09-03-2024 Urology Office/Clinic [...] Electrolyte panel 10/20/23 - wnl. KUB 01/11/24 [facility] [place] Kidneys are partially obscured, R>L. Group [...] Contact Information FLAVIO ONEAL, Zac De Oliveira, UR [facility] [address] [place] [phone]- [phone] Additional Instructions: esthela R ESWL Patient Education [...] prednisoLONE, Oral, (more content not included)... Normal [facility] Comment on above: Result Comment: Elec tronically Signed By: Zac MUNIZ MD\.br\Date and Time Signed: 09/03/24 11:02 EDT\.br\Electronically Co-Signed By: Adela Frias\.br\Date and Time Co-Signed: 09/03/24 11:01 EDT XR hip RT min 2V(w/wo pelvis )*on 08-29-2024 XR hip RT min 2V(w/wo pelvis)* [facility] [address] [place] [address] XRay Report Signed Patient: Valentin Torre MR#: [id number] [birth year] : 1955 Acct:[id number] Age/Sex: 69 / M ADM Date: 08/29/24 Loc: [facility] Room: Type: [facility] Attending Dr: Jaime Murcia II, MD [...] Patel Jr., D.O.08/29/2024 2:18 PM Dictation Location: [place] [address] Transcribed By: [facility] 08/29/24 1418 Dictated By: Marcial Patel Jr, DO 08/29/24 1417 Signed By: 08/29/24 1418 Normal [facility] Alanine aminotransferase [En zymatic activity/volume] in Serum or PlasmaOrdered By: Romel Davis on 07-03-2024 ALT [Catalytic activity/Vol] 21 U/L 7-[address] [facility] Albumin [Mass/volume] in Ser um or Plasma by Bromocresol green (BCG) dye binding methoOrdered By: Romel Davis on 07-03-2024 Albumin BCG dye [Mass/Vol] 4.2 g/dL 3.5-5.[address] [facility] Alkaline phosphatase [Enzyma tic activity/volume] in Serum or PlasmaOrdered By: Romel Davis on 07-03-2024 ALP [Catalytic activity/Vol] 85 U/L 34-[address] [facility] Aspartate aminotransferase [ Enzymatic activity/volume] in Serum or PlasmaOrdered By: Romel Davis on 07-03-2024 AST [Catalytic activity/Vol] 16 U/L 13-[address] [facility] Bacteria [Presence] in Urine by AutomatedOrdered By: Romel Davis on 07-03-2024 Bacteria Auto Ql (U) None seen [HPF] None Seen [facility] Basophils Auto (Bld) [#/Vol] Ordered By: Romel Davis on 07-03-2024 Basophils (Bld) [#/Vol] 0.0 10*3/uL 0.0-0.[address] [facility] Basophils/100 WBC Auto (Bld) Ordered By: Romel Davis on 07-03-2024 Basophils/100 WBC (Bld) 0.5 % . [facility] Bilirubin Test strip Ql (U)O rdered By: Romel Davis on 07-03-2024 Bilirubin Ql (U) Negative Negative [facility] Bilirubin.total [Mass/volume ] in Serum or PlasmaOrdered By: Romel Davis on 07-03-2024 Bilirubin [Mass/Vol] 0.5 mg/dL 0.3-1.0 [facility] Calcium [Mass/volume] in Ser um or PlasmaOrdered By: Romel Davis on 07-03-2024 Calcium [Mass/Vol] 8.7 mg/dL 8.6-10.3 [facility] Carbon dioxide, total [Moles /volume] in Serum or PlasmaOrdered By: Romel Davis on 07-03-2024 CO2 [Moles/Vol] 22.6 mmol/L 21.0-31.0 [facility] Chloride [Moles/volume] in S ace or PlasmaOrdered By: Romel Davis on 07-03-2024 Chloride [Moles/Vol] 105 mmol/L 98-107 [facility] Color Auto (U)Ordered By: Bridgett Davis on 07-03-2024 Color (U) Yellow Yellow [facility] Creatinine [Mass/volume] in Serum or PlasmaOrdered By: Romel Davis on 07-03-2024 Creatinine [Mass/Vol] 0.87 mg/dL 0.70-1.30 [facility] Eosinophils Auto (Bld) [#/Vo l]Ordered By: Romel Davis on 07-03-2024 Eosinophils (Bld) [#/Vol] 0.1 10*3/uL 0.0-0.[address] [facility] Eosinophils/100 WBC Auto (Bl d)Ordered By: Romel Davis on 07-03-2024 Eosinophils/100 WBC (Bld) 1.1 % . [facility] Epithelial cells.squamous [# /area] in Urine sediment by Automated countOrdered By: Romel Davis on 07-03-2024 Epithelial cells.squamous Auto (Urine sed) [#/Area] 1-2 [HPF] 0-[address] [facility] Erythrocyte distribution wid th Auto (RBC) [Ratio]Ordered By: Romel Davis on 07-03-2024 Erythrocyte distribution width (RBC) [Ratio] 15.6 % High 12.0-14.[address] [facility] Erythrocyte sedimentation ra te by Photometric methodOrdered By: Romel Davis on 07-03-2024 ESR Photometric method (Bld) [Velocity] 7 mm/hr 0-[address] [facility] Erythrocytes [#/area] in Uri ne sediment by Automated countOrdered By: Romel Davis on 07-03-2024 RBC Auto (Urine sed) [#/Area] 1-2 [HPF] 0-[address] [facility] Globulin Calc (S) [Mass/Vol] Ordered By: Romel Davis on 07-03-2024 Globulin (S) [Mass/Vol] 2.1 g/dL [facility] Glucose [Mass/volume] in Ser um or PlasmaOrdered By: Romel Davis on 07-03-2024 Glucose [Mass/Vol] 136 mg/dL High 70-100 [facility] Comment on above: ADA recommended refe rence rangeRandom Glucose Reference Range is dependent on time and content of last meal. Glucose of more than 200 mg/dL in a nonstressed, ambulatory subject supports the diagnosis of Diabetes Mellitus. Glucose [Mass/volume] in Uri ne by Test stripOrdered By: Romel Davis on 07-03-2024 Glucose Test strip (U) [Mass/Vol] Normal mg/dL Normal [facility] Hematocrit Auto (Bld) [Volum e fraction]Ordered By: Romel Davis on 07-03-2024 Hematocrit (Bld) [Volume fraction] 44.6 % 38.8-50.[address] [facility] Hemoglobin Test strip Ql (U) Ordered By: Romel Davis 07-03-2024 Hemoglobin Ql (U) Negative Negative [facility] Hemoglobin [Mass/volume] in BloodOrdered By: Romel Davis on 07-03-2024 Hemoglobin (Bld) [Mass/Vol] 15.3 g/dL 13.0-17.[address] [facility] Hyaline casts [#/area] in Ur ine sediment by Automated countOrdered By: Romel Davis on 07-03-2024 Hyaline casts Auto (Urine sed) [#/Area] 9-19 [LPF] High 0-[address] [facility] Ketones Test strip Ql (U)Ord ered By: Romel Davis on 07-03-2024 Ketones Ql (U) Trace High Negative [facility] Leukocyte esterase [Presence ] in Urine by Test stripOrdered By: Romel Davis on 07-03-2024 Leukocyte esterase Test strip Ql (U) Negative Negative [facility] Leukocytes [#/area] in Urine sediment by Automated countOrdered By: Romel Davis on 07-03-2024 WBC Auto (Urine sed) [#/Area] 1-2 [HPF] 0-[address] [facility] Leukocytes [#/volume] correc nat for nucleated erythrocytes in Blood by Automated counOrdered By: Romel Davis on 07-03-2024 WBC corrected for nucl RBC Auto (Bld) [#/Vol] 5.5 10*3/uL 4.1-10.[address] [facility] Lymphocytes Auto (Bld) [#/Vo l]Ordered By: Romel Davis on 07-03-2024 Lymphocytes (Bld) [#/Vol] 0.8 10*3/uL Low 1.00-4.[address] [facility] Lymphocytes/100 WBC Auto (Bl d)Ordered By: Romel Davis on 07-03-2024 Lymphocytes/100 WBC (Bld) 14.0 % . [facility] MCH Auto (RBC) [Entitic mass ]Ordered By: Romel Davis on 07-03-2024 MCH (RBC) [Entitic mass] 30.0 pg 27.5-35.[address] [facility] MCHC Auto (RBC) [Mass/Vol]Or dered By: Romel Davis on 07-03-2024 MCHC (RBC) [Mass/Vol] 34.2 g/dL 32.5-35.6 [facility] MCV Auto (RBC) [Entitic vol] Ordered By: Romel Davis on 07-03-2024 MCV (RBC) [Entitic vol] 87.5 fL 83.5-[address] [facility] Monocytes Auto (Bld) [#/Vol] Ordered By: Romel Davis on 07-03-2024 Monocytes (Bld) [#/Vol] 0.4 10*3/uL 0.0-0.[address] [facility] Monocytes/100 WBC Auto (Bld) Ordered By: Romel Davis on 07-03-2024 Monocytes/100 WBC (Bld) 7.9 % . [facility] Mucus [Presence] in Urine by AutomatedOrdered By: Romel Davis on 07-03-2024 Mucus Auto Ql (U) 1+ [LPF] Abnormal [facility] Neutrophils Auto (Bld) [#/Vo l]Ordered By: Romel Davis on 07-03-2024 Neutrophils (Bld) [#/Vol] 4.2 10*3/uL 1.8-7.[address] [facility] Neutrophils/100 WBC Auto (Bl d)Ordered By: Romel Davis on 07-03-2024 Neutrophils/100 WBC (Bld) 76.5 % . [facility] Nitrite Test strip Ql (U)Ord ered By: Romel Davis on 07-03-2024 Nitrite Ql (U) Negative Negative [facility] No Panel InformationOrdered By: Romel Davis on 07-03-2024 Estimated GFR (CKD-EPI) > 60.0 mL/Min [facility] Creatinine Clearance (Chem N/A [facility] Total Complement (CH50) 56 U/mL >[address] [facility] Comment on above: Age Male Female [...] to determine out of range values.Performed at: [facility] [id number] Director: Richy Ardon PhD, Phone: [phone] Nucleated erythrocytes [Pres ence] in Blood by Automated countOrdered By: Romel Davis on 07-03-2024 Nucleated RBC Auto Ql (Bld) 0.1 /100{WBC} 0-0.[address] [facility] Platelet mean volume Auto (B ld) [Entitic vol]Ordered By: Romel Davis on 07-03-2024 Platelet mean volume (Bld) [Entitic vol] 8.2 fL 6.6-10.[address] [facility] Platelets Auto (Bld) [#/Vol] Ordered By: Romel Davis on 07-03-2024 Platelets (Bld) [#/Vol] 160 10*3/uL 150-[address] [facility] Potassium [Moles/volume] in Serum or PlasmaOrdered By: Romel Davis on 07-03-2024 Potassium [Moles/Vol] 4.0 mmol/L 3.5-5.1 [facility] Protein Test strip (U) [Mass /Vol]Ordered By: Romel Davis on 07-03-2024 Protein (U) [Mass/Vol] Trace mg/dL High Negative [facility] Protein [Mass/volume] in Ser um or PlasmaOrdered By: Romel Davis on 07-03-2024 Protein [Mass/Vol] 6.3 g/dL Low 6.4-8.9 [facility] RBC Auto (Bld) [#/Vol]Ordere d By: Romel Davis on 07-03-2024 RBC (Bld) [#/Vol] 5.10 10*6/uL 3.90-5.60 [facility] Serum or plasma albumin/glob ulin mass ratioOrdered By: Romel Davis on 07-03-2024 Albumin/Globulin [Mass ratio] 2.0 {ratio} [facility] Serum or plasma anion gap de terminationOrdered By: Romel Davis on 07-03-2024 Anion gap [Moles/Vol] 13.4 mmol/L 6.0-15.0 [facility] Serum or plasma complement C 3 measurement (mass/volume)Ordered By: Romel Davis on 07-03-2024 Complement C3 [Mass/Vol] 127 mg/dL 82-[address] [facility] Comment on above: Performed at: [employer] [facility] [id number] [place], [place] [id number] Director: Richy Ardon PhD, Phone: [phone] Serum or plasma complement C 4 measurement (mass/volume)Ordered By: Romel Davis on 07-03-2024 Complement C4 [Mass/Vol] 15 mg/dL 12-[address] [facility] Comment on above: Performed at: [employer] [id number] [place], [place] [id number] Director: Richy Ardon PhD, Phone: [phone] Sodium [Moles/volume] in Ser um or PlasmaOrdered By: Romel Dvais on 07-03-2024 Sodium [Moles/Vol] 137 mmol/L 136-145 [facility] Specific gravity Test strip (U) [Rel density]Ordered By: Romel Davis on 07-03-2024 Specific gravity (U) [Rel density] 1.027 1.001-1.[address] [facility] Urea nitrogen [Mass/volume] in Serum or PlasmaOrdered By: Romel Davis on 07-03-2024 Urea nitrogen [Mass/Vol] 17 mg/dL 06-[address] [facility] Urine appearanceOrdered By: Romel Davis on 07-03-2024 Appearance (U) Clear Clear [facility] Urobilinogen Test strip (U) [Mass/Vol]Ordered By: Romel Davis on 07-03-2024 Urobilinogen (U) [Mass/Vol] 2 mg/dL High Normal [facility] WBC Auto (Bld) [#/Vol]Ordere d By: Romel Davis on 07-03-2024 WBC (Bld) [#/Vol] 5.5 10*3/uL 4.1-10.5 [facility] pH Test strip (U)Ordered By: Romel Davis on 07-03-2024 pH (U) 6.5 [pH] 5.0-9.[address] [facility] Comprehensive metabolic pane vivek 06-14-2024 Albumin [Mass/Vol] 4.4 g/dL 3.2 - 5.3 g/dL [facility] ALP [Catalytic activity/Vol] 80 U/L 39 - 130 U/L [facility] ALT No additional P-5'-P [Catalytic activity/Vol] 24 U/L 0 - 40 U/L [facility] Anion gap [Moles/Vol] 9 mmol/L 5 - 15 mmol/L [facility] AST [Catalytic activity/Vol] 18 U/L 0 - 41 U/L [facility] Bilirubin [Mass/Vol] 0.5 mg/dL 0.3 - 1 .2 mg/dL [facility] Calcium [Mass/Vol] 9.6 mg/dL 8.5 - 10. 5 mg/dL [facility] Chloride [Moles/Vol] 107 mmol/L 98 - 10 9 mmol/L [facility] CO2 [Moles/Vol] 23 mmol/L 22 - 32 mmol/L [facility] Creatinine [Mass/Vol] 1.10 mg/dL 0.60 - 1.30 mg/dL [facility] Comment on above: METHOD TRACEABLE TO [facility] STANDARD eGFR (CKD-EPI)non-race dependent 74 - PINF [facility] Comment on above: Reported eGFR is based on the CKD-EPI 2020 equation that does not use a race coefficient. Glucose [Mass/Vol] 86 mg/dL 65 - 99 mg/dL [facility] Interpretation and review of laboratory results Abnormal [facility] Potassium [Moles/Vol] 4.0 mmol/L 3.5 - 5.0 mmol/L [facility] Protein [Mass/Vol] 6.9 g/dL 6.0 - 8.0 g/dL [facility] Sodium [Moles/Vol] 139 mmol/L 134 - 146 mmol/L [facility] Urea nitrogen [Mass/Vol] 33 mg/dL High 5 - 27 mg/dL [facility] Alanine aminotransferase [En zymatic activity/volume] in Serum or PlasmaOrdered By: Romel Davis on 03-13-2024 ALT [Catalytic activity/Vol] 22 U/L 7-[address] [facility] Albumin [Mass/volume] in Ser um or Plasma by Bromocresol green (BCG) dye binding methoOrdered By: Romel Davis on 03-13-2024 Albumin BCG dye [Mass/Vol] 3.7 g/dL 3.5-5.[address] [facility] Alkaline phosphatase [Enzyma tic activity/volume] in Serum or PlasmaOrdered By: Romel Davis on 03-13-2024 ALP [Catalytic activity/Vol] 79 U/L 34-[address] [facility] Aspartate aminotransferase [ Enzymatic activity/volume] in Serum or PlasmaOrdered By: Romel Davis on 03-13-2024 AST [Catalytic activity/Vol] 17 U/L 13-[address] [facility] Automated erythrocytes count in urine sediment (number/area)Ordered By: Romel Davis on 03-13-2024 RBC Auto (Urine sed) [#/Area] 1-2 [HPF] 0-[address] [facility] Automated leukocytes count i n urine sediment (number/area)Ordered By: Romel Davis on 03-13-2024 WBC Auto (Urine sed) [#/Area] 0-1 [HPF] 0-[address] [facility] Basophils Auto (Bld) [#/Vol] Ordered By: Romel Davis on 03-13-2024 Basophils (Bld) [#/Vol] 0.0 10*3/uL 0.0-0.[address] [facility] Basophils/100 WBC Auto (Bld) Ordered By: Romel Davis on 03-13-2024 Basophils/100 WBC (Bld) 0.5 % . [facility] Bilirubin Test strip Ql (U)O rdered By: Romel Davis on 03-13-2024 Bilirubin Ql (U) Negative Negative [facility] Bilirubin.total [Mass/volume ] in Serum or PlasmaOrdered By: Romel Davis on 03-13-2024 Bilirubin [Mass/Vol] 0.6 mg/dL 0.3-1.0 [facility] Calcium [Mass/volume] in Ser um or PlasmaOrdered By: Romel Davis on 03-13-2024 Calcium [Mass/Vol] 8.8 mg/dL 8.6-10.3 [facility] Carbon dioxide, total [Moles /volume] in Serum or PlasmaOrdered By: Romel Davis on 03-13-2024 CO2 [Moles/Vol] 25.0 mmol/L 21.0-31.0 [facility] Chloride [Moles/volume] in S ace or PlasmaOrdered By: Romel Davis on 03-13-2024 Chloride [Moles/Vol] 105 mmol/L 98-107 [facility] Color Auto (U)Ordered By: Bridgett nasreen Ryan on 03-13-2024 Color (U) Dark yellow Abnormal Yellow [facility] Creatinine [Mass/volume] in Serum or PlasmaOrdered By: Romel Davis on 03-13-2024 Creatinine [Mass/Vol] 0.94 mg/dL 0.70-1.30 [facility] Eosinophils Auto (Bld) [#/Vo l]Ordered By: Romel Davis on 03-13-2024 Eosinophils (Bld) [#/Vol] 0.1 10*3/uL 0.0-0.[address] [facility] Eosinophils/100 WBC Auto (Bl d)Ordered By: Romel Davis on 03-13-2024 Eosinophils/100 WBC (Bld) 1.3 % . [facility] Erythrocyte distribution wid th Auto (RBC) [Ratio]Ordered By: Romel Davis on 03-13-2024 Erythrocyte distribution width (RBC) [Ratio] 14.8 % 12.0-14.[address] [facility] Erythrocyte sedimentation ra te by Photometric methodOrdered By: Romel Davis on 03-13-2024 ESR Photometric method (Bld) [Velocity] 29 mm/hr High 0-[address] [facility] Globulin Calc (S) [Mass/Vol] Ordered By: Romel Davis on 03-13-2024 Globulin (S) [Mass/Vol] 2.3 g/dL [facility] Glucose [Mass/volume] in Ser um or PlasmaOrdered By: Romel Davis on 03-13-2024 Glucose [Mass/Vol] 124 mg/dL High 70-100 [facility] Comment on above: ADA recommended refe rence rangeRandom Glucose Reference Range is dependent on time and content of last meal. Glucose of more than 200 mg/dL in a nonstressed, ambulatory subject supports the diagnosis of Diabetes Mellitus. Hematocrit Auto (Bld) [Volum e fraction]Ordered By: Romel Davis on 03-13-2024 Hematocrit (Bld) [Volume fraction] 36.6 % Low 38.8-50.[address] [facility] Hemoglobin [Mass/volume] in BloodOrdered By: Romel Davis on 03-13-2024 Hemoglobin (Bld) [Mass/Vol] 12.4 g/dL Low 13.0-17.[address] [facility] Ketones Auto test strip (U) [Mass/Vol]Ordered By: Romel Davis on 03-13-2024 Ketones (U) [Mass/Vol] Trace High Negative [facility] - UrinalysisOrder ed By: Romel Davis on 03-13-2024 Hyaline casts LM Ql (Urine sed) 0-8 [LPF] 0-[address] [facility] Leukocytes [#/volume] correc nat for nucleated erythrocytes in Blood by Automated counOrdered By: Romel Davis on 03-13-2024 WBC corrected for nucl RBC Auto (Bld) [#/Vol] 6.5 10*3/uL 4.1-10.[address] [facility] Lymphocytes Auto (Bld) [#/Vo l]Ordered By: Romel Davis on 03-13-2024 Lymphocytes (Bld) [#/Vol] 0.8 10*3/uL Low 1.00-4.[address] [facility] Lymphocytes/100 WBC Auto (Bl d)Ordered By: Romel Davis on 03-13-2024 Lymphocytes/100 WBC (Bld) 12.1 % . [facility] MCH Auto (RBC) [Entitic mass ]Ordered By: Romel Davis on 03-13-2024 MCH (RBC) [Entitic mass] 30.0 pg 27.5-35.[address] [facility] MCHC Auto (RBC) [Mass/Vol]Or dered By: Romel Davis on 03-13-2024 MCHC (RBC) [Mass/Vol] 33.9 g/dL 32.5-35.6 [facility] MCV Auto (RBC) [Entitic vol] Ordered By: Romel Davis on 03-13-2024 MCV (RBC) [Entitic vol] 88.3 fL 83.5-[address] [facility] Monocytes Auto (Bld) [#/Vol] Ordered By: Romel Davis on 03-13-2024 Monocytes (Bld) [#/Vol] 0.7 10*3/uL 0.0-0.[address] [facility] Monocytes/100 WBC Auto (Bld) Ordered By: Romel Davis on 03-13-2024 Monocytes/100 WBC (Bld) 10.7 % . [facility] Neutrophils Auto (Bld) [#/Vo l]Ordered By: Romel Davis on 03-13-2024 Neutrophils (Bld) [#/Vol] 4.9 10*3/uL 1.8-7.[address] [facility] Neutrophils/100 WBC Auto (Bl d)Ordered By: Romel Davis on 03-13-2024 Neutrophils/100 WBC (Bld) 75.4 % . [facility] Nitrite Test strip Ql (U)Ord ered By: Romel Davis on 03-13-2024 Nitrite Ql (U) Negative Negative [facility] No Panel InformationOrdered By: Romel Davis on 03-13-2024 Estimated GFR (CKD-EPI) > 60.0 mL/Min [facility] Creatinine Clearance (Chem N/A [facility] Total Complement (CH50) >60 U/mL >[address] [facility] Comment on above: Age Male Female [...] determine out of range values.Performed at: - [facility] [id number] Director: Richy Ardon PhD, Phone: [phone] Nucleated erythrocytes [Pres ence] in Blood by Automated countOrdered By: Romel Davis on 03-13-2024 Nucleated RBC Auto Ql (Bld) 0.1 /100{WBC} 0-0.[address] [facility] Platelet mean volume Auto (B ld) [Entitic vol]Ordered By: Romel Davis on 03-13-2024 Platelet mean volume (Bld) [Entitic vol] 8.0 fL 6.6-10.[address] [facility] Platelets Auto (Bld) [#/Vol] Ordered By: Romel Davis on 03-13-2024 Platelets (Bld) [#/Vol] 258 10*3/uL 150-[address] [facility] Potassium [Moles/volume] in Serum or PlasmaOrdered By: Romel Davis on 03-13-2024 Potassium [Moles/Vol] 4.3 mmol/L 3.5-5.1 [facility] Protein Auto test strip (U) [Mass/Vol]Ordered By: Romel Davis on 03-13-2024 Protein (U) [Mass/Vol] Negative Negative [facility] Protein [Mass/volume] in Ser um or PlasmaOrdered By: Romel Davis on 03-13-2024 Protein [Mass/Vol] 6.0 g/dL Low 6.4-8.9 [facility] RBC Auto (Bld) [#/Vol]Ordere d By: Romel Davis on 03-13-2024 RBC (Bld) [#/Vol] 4.14 10*6/uL 3.90-5.60 [facility] Serum or plasma albumin/glob ulin mass ratioOrdered By: Romel Davis on 03-13-2024 Albumin/Globulin [Mass ratio] 1.6 {ratio} [facility] Serum or plasma anion gap de terminationOrdered By: Romel Davis on 03-13-2024 Anion gap [Moles/Vol] 11.3 mmol/L 6.0-15.0 [facility] Serum or plasma complement C 3 measurement (mass/volume)Ordered By: Romel Davis on 03-13-2024 Complement C3 [Mass/Vol] 153 mg/dL 82-[address] [facility] Comment on above: Performed at: [address] [id number] Director: Richy Ardon PhD, Phone: [phone] Serum or plasma complement C 4 measurement (mass/volume)Ordered By: Romel Davis on 03-13-2024 Complement C4 [Mass/Vol] 24 mg/dL 12-[address] [facility] Sodium [Moles/volume] in Ser um or PlasmaOrdered By: Romel Davis on 03-13-2024 Sodium [Moles/Vol] 137 mmol/L 136-145 [facility] Specific gravity Auto test s trip (U) [Rel density]Ordered By: Romel Davis on 03-13-2024 Specific gravity (U) [Rel density] 1.024 1.001-1.[address] [facility] Squamous epithelial cells de tection in urine sediment by light microscopyOrdered By: Romel Davis on 03-13-2024 Epithelial cells.squamous LM Ql (Urine sed) None seen [HPF] 0-[address] [facility] Urea nitrogen [Mass/volume] in Serum or PlasmaOrdered By: Romel Davis on 03-13-2024 Urea nitrogen [Mass/Vol] 26 mg/dL High 7-[address] [facility] Urine bacteria detection by automated methodOrdered By: Romel Davis on 03-13-2024 Bacteria Auto Ql (U) None seen None Seen [facility] Urine clarity by refractomet ry automatedOrdered By: Romel Davis on 03-13-2024 Clarity Refractometry automated (U) Clear Clear [facility] Urine glucose measurement by automated test strip (mass/volume)Ordered By: Romel Davis on 03-13-2024 Glucose Auto test strip (U) [Mass/Vol] Normal mg/dL Normal [facility] Urine hemoglobin detection b y automated test stripOrdered By: Romel Davis on 03-13-2024 Hemoglobin Auto test strip Ql (U) Negative Negative [facility] Urine leukocyte esterase det ection by automated test stripOrdered By: Romel Davis on 03-13-2024 Leukocyte esterase Auto test strip Ql (U) 1+ High Negative [facility] Urobilinogen Auto test strip (U) [Mass/Vol]Ordered By: Romel Davis on 03-13-2024 Urobilinogen (U) [Mass/Vol] Normal mg/dL Normal [facility] WBC Auto (Bld) [#/Vol]Ordere d By: Romel Davis on 03-13-2024 WBC (Bld) [#/Vol] 6.5 10*3/uL 4.1-10.5 [facility] pH Auto test strip (U)Ordere d By: Romel Davis on 03-13-2024 pH (U) 7.0 [pH] 5.0-9.[address] [facility] Carbon dioxide, total [Moles /volume] in Serum or PlasmaOrdered By: Zac Muniz on 01-11-2024 CO2 [Moles/Vol] 22.4 mmol/L 21.0-31.0 [facility] Chloride [Moles/volume] in S ace or PlasmaOrdered By: Zac Muniz on 01-11-2024 Chloride [Moles/Vol] 104 mmol/L 98-107 [facility] Potassium [Moles/volume] in Serum or PlasmaOrdered By: Zac Muniz on 01-11-2024 Potassium [Moles/Vol] 4.4 mmol/L 3.5-5.1 [facility] Serum or plasma anion gap de terminationOrdered By: Zac Muniz on 01-11-2024 Anion gap [Moles/Vol] 13.0 mmol/L 6.0-15.0 [facility] Sodium [Moles/volume] in Ser um or PlasmaOrdered By: Zac Muniz on 01-11-2024 Sodium [Moles/Vol] 135 mmol/L 136-145 [facility] Alanine aminotransferase [En zymatic activity/volume] in Serum or PlasmaOrdered By: Edenilson Reinoso on 01-03-2024 ALT [Catalytic activity/Vol] 43 U/L 7-[address] [facility] Albumin [Mass/volume] in Ser um or Plasma by Bromocresol green (BCG) dye binding methoOrdered By: Edenilson Reinoso on 01-03-2024 Albumin BCG dye [Mass/Vol] 4.6 g/dL 3.5-5.[address] [facility] Alkaline phosphatase [Enzyma tic activity/volume] in Serum or PlasmaOrdered By: Edenilson Reinoso on 01-03-2024 ALP [Catalytic activity/Vol] 78 U/L 34-[address] [facility] Aspartate aminotransferase [ Enzymatic activity/volume] in Serum or PlasmaOrdered By: Edenilson Reinoso on 01-03-2024 AST [Catalytic activity/Vol] 28 U/L 13-[address] [facility] Automated erythrocytes count in urine sediment (number/area)Ordered By: Edenilson Reinoso on 01-03-2024 RBC Auto (Urine sed) [#/Area] 3-4 [HPF] 0-[address] [facility] Automated leukocytes count i n urine sediment (number/area)Ordered By: Edenilson Reinoso on 01-03-2024 WBC Auto (Urine sed) [#/Area] 3-4 [HPF] 0-[address] [facility] Basophils Auto (Bld) [#/Vol] Ordered By: Edenilson Reinoso on 01-03-2024 Basophils (Bld) [#/Vol] 0.0 10*3/uL 0.0-0.[address] [facility] Basophils/100 WBC Auto (Bld) Ordered By: Edenilson Reinoso on 01-03-2024 Basophils/100 WBC (Bld) 0.2 % . [facility] Bilirubin Test strip Ql (U)O rdered By: Edenilson Reinoso on 01-03-2024 Bilirubin Ql (U) Negative Negative [facility] Bilirubin.total [Mass/volume ] in Serum or PlasmaOrdered By: Edenilson Reinoso on 01-03-2024 Bilirubin [Mass/Vol] 0.6 mg/dL 0.3-1.0 [facility] Calcium [Mass/volume] in Ser um or PlasmaOrdered By: Eednilson Reinoso on 01-03-2024 Calcium [Mass/Vol] 9.3 mg/dL 8.6-10.3 [facility] Carbon dioxide, total [Moles /volume] in Serum or PlasmaOrdered By: Edenilson Reinoso on 01-03-2024 CO2 [Moles/Vol] 20.7 mmol/L 21.0-31.0 [facility] Chloride [Moles/volume] in S ace or PlasmaOrdered By: Edenilson Reinoso on 01-03-2024 Chloride [Moles/Vol] 106 mmol/L 98-107 [facility] Color Auto (U)Ordered By: Chen Reinoso on 01-03-2024 Color (U) Dark yellow Yellow [facility] Creatinine [Mass/volume] in Serum or PlasmaOrdered By: Edenilson Reinoso on 01-03-2024 Creatinine [Mass/Vol] 1.14 mg/dL 0.70-1.30 [facility] Eosinophils Auto (Bld) [#/Vo l]Ordered By: Edenilson Reinoso on 01-03-2024 Eosinophils (Bld) [#/Vol] 0.0 10*3/uL 0.0-0.[address] [facility] Eosinophils/100 WBC Auto (Bl d)Ordered By: Edenilson Reinoso on 01-03-2024 Eosinophils/100 WBC (Bld) 0.3 % . [facility] Erythrocyte distribution wid th Auto (RBC) [Ratio]Ordered By: Edenilson Reinoso on 01-03-2024 Erythrocyte distribution width (RBC) [Ratio] 14.7 % 12.0-14.[address] [facility] Globulin Calc (S) [Mass/Vol] Ordered By: Edenilson Reinoso on 01-03-2024 Globulin (S) [Mass/Vol] 2.4 g/dL [facility] Glucose [Mass/volume] in Ser um or PlasmaOrdered By: Edenilson Reinoso on 01-03-2024 Glucose [Mass/Vol] 148 mg/dL 70-100 [facility] Comment on above: ADA recommended refe rence rangeRandom Glucose Reference Range is dependent on time and content of last meal. Glucose of more than 200 mg/dL in a nonstressed, ambulatory subject supports the diagnosis of Diabetes Mellitus. Hematocrit Auto (Bld) [Volum e fraction]Ordered By: Edenilson Reinoso on 01-03-2024 Hematocrit (Bld) [Volume fraction] 49.3 % 38.8-50.[address] [facility] Hemoglobin [Mass/volume] in BloodOrdered By: Edenilson Reinoso on 01-03-2024 Hemoglobin (Bld) [Mass/Vol] 16.6 g/dL 13.0-17.[address] [facility] Ketones Auto test strip (U) [Mass/Vol]Ordered By: Edenilson Reinoso on 01-03-2024 Ketones (U) [Mass/Vol] Trace Negative [facility] - UrinalysisOrder ed By: Edenilson Reinoso on 01-03-2024 Hyaline casts LM Ql (Urine sed) 0-8 [LPF] 0-[address] [facility] Leukocytes [#/volume] correc nat for nucleated erythrocytes in Blood by Automated counOrdered By: Edenilson Reinoso on 01-03-2024 WBC corrected for nucl RBC Auto (Bld) [#/Vol] 16.9 10*3/uL 4.1-10.[address] [facility] Lymphocytes Auto (Bld) [#/Vo l]Ordered By: Edenilson Reinoso on 01-03-2024 Lymphocytes (Bld) [#/Vol] 0.8 10*3/uL 1.00-4.[address] [facility] Lymphocytes/100 WBC Auto (Bl d)Ordered By: Edenilson Reinoso on 01-03-2024 Lymphocytes/100 WBC (Bld) 4.8 % . [facility] MCH Auto (RBC) [Entitic mass ]Ordered By: Edenilson Reinoso on 01-03-2024 MCH (RBC) [Entitic mass] 30.1 pg 27.5-35.[address] [facility] MCHC Auto (RBC) [Mass/Vol]Or dered By: Edenilson Reinoso on 01-03-2024 MCHC (RBC) [Mass/Vol] 33.7 g/dL 32.5-35.6 [facility] MCV Auto (RBC) [Entitic vol] Ordered By: Edenilson Reinoso on 01-03-2024 MCV (RBC) [Entitic vol] 89.3 fL 83.5-[address] [facility] Monocyte distribution width [Entitic volume] in Blood by AutomatedOrdered By: Edenilson Reinoso on 01-03-2024 Monocyte distribution width Auto (Bld) [Entitic vol] 20.70 % 0.00-20.[address] [facility] Comment on above: For adults in ED, MD W > 20.0 may be associated with a higher risk of sepsis during the first 12 hrs of hospital admission Monocytes Auto (Bld) [#/Vol] Ordered By: Edenilson Reinoso on 01-03-2024 Monocytes (Bld) [#/Vol] 1.1 10*3/uL 0.0-0.[address] [facility] Monocytes/100 WBC Auto (Bld) Ordered By: Edenilson Reinoso on 01-03-2024 Monocytes/100 WBC (Bld) 6.7 % . [facility] Neutrophils Auto (Bld) [#/Vo l]Ordered By: Edenilson Reinoso on 01-03-2024 Neutrophils (Bld) [#/Vol] 14.9 10*3/uL 1.8-7.[address] [facility] Neutrophils/100 WBC Auto (Bl d)Ordered By: Edenilson Reinoso on 01-03-2024 Neutrophils/100 WBC (Bld) 88.0 % . [facility] Nitrite Test strip Ql (U)Ord ered By: Edenilson Reinoso on 01-03-2024 Nitrite Ql (U) Negative Negative [facility] No Panel InformationOrdered By: Edenilson Reinoso on 01-03-2024 Estimated GFR (CKD-EPI) > 60.0 mL/Min [facility] Creatinine Clearance (Chem 73.[address] [facility] Nucleated erythrocytes [Pres ence] in Blood by Automated countOrdered By: Edenilson Reinoso on 01-03-2024 Nucleated RBC Auto Ql (Bld) 0.3 /100{WBC} 0-0.[address] [facility] Platelet mean volume Auto (B ld) [Entitic vol]Ordered By: Edenilson Reinoso on 01-03-2024 Platelet mean volume (Bld) [Entitic vol] 8.5 fL 6.6-10.[address] [facility] Platelets Auto (Bld) [#/Vol] Ordered By: Edenilson Reinoso on 01-03-2024 Platelets (Bld) [#/Vol] 229 10*3/uL 150-[address] [facility] Potassium [Moles/volume] in Serum or PlasmaOrdered By: Edenilson Reinoso on 01-03-2024 Potassium [Moles/Vol] 4.4 mmol/L 3.5-5.1 [facility] Protein Auto test strip (U) [Mass/Vol]Ordered By: Edenilson Reinoso on 01-03-2024 Protein (U) [Mass/Vol] Trace mg/dL Negative F [facility] Protein [Mass/volume] in Ser um or PlasmaOrdered By: Edenilson Reinoso on 01-03-2024 Protein [Mass/Vol] 7.0 g/dL 6.4-8.9 [facility] RBC Auto (Bld) [#/Vol]Ordere d By: Edenilson Reinoso on 01-03-2024 RBC (Bld) [#/Vol] 5.52 10*6/uL 3.90-5.60 [facility] Serum or plasma albumin/glob ulin mass ratioOrdered By: Edenilson Reinoso on 01-03-2024 Albumin/Globulin [Mass ratio] 1.9 {ratio} [facility] Serum or plasma anion gap de terminationOrdered By: Edenilson Reinoso on 01-03-2024 Anion gap [Moles/Vol] 15.7 mmol/L 6.0-15.0 [facility] Sodium [Moles/volume] in Ser um or PlasmaOrdered By: Edenilson Reinoso on 01-03-2024 Sodium [Moles/Vol] 138 mmol/L 136-145 [facility] Specific gravity Auto test s trip (U) [Rel density]Ordered By: Edenilson Reinoso on 01-03-2024 Specific gravity (U) [Rel density] 1.034 1.001-1.[address] [facility] Squamous epithelial cells de tection in urine sediment by light microscopyOrdered By: Edenilson Reinoso on 01-03-2024 Epithelial cells.squamous LM Ql (Urine sed) 0-1 [HPF] 0-[address] [facility] Troponin I.cardiac [Mass/vol ume] in Serum or Plasma by Detection limit <= 0.01 ng/Ordered By: Edenilson Reinoso on 01-03-2024 Troponin I.cardiac DL <= 0.01 ng/mL [Mass/Vol] 7.2 pg/mL 0.0-20.[address] [facility] Urea nitrogen [Mass/volume] in Serum or PlasmaOrdered By: Edenilson Reinoso on 01-03-2024 Urea nitrogen [Mass/Vol] 21 mg/dL 7-[address] [facility] Urine bacteria detection by automated methodOrdered By: Edenilson Reinoso on 01-03-2024 Bacteria Auto Ql (U) None seen None Seen [facility] Urine clarity by refractomet ry automatedOrdered By: Edenilson Reinoso on 01-03-2024 Clarity Refractometry automated (U) Cloudy Clear [facility] Urine glucose measurement by automated test strip (mass/volume)Ordered By: Edenilson Reinoso on 01-03-2024 Glucose Auto test strip (U) [Mass/Vol] Normal mg/dL Normal [facility] Urine hemoglobin detection b y automated test stripOrdered By: Edenilson Reinoso on 01-03-2024 Hemoglobin Auto test strip Ql (U) Negative Negative [facility] Urine leukocyte esterase det ection by automated test stripOrdered By: Edenilson Reinoso on 01-03-2024 Leukocyte esterase Auto test strip Ql (U) Negative Negative [facility] Urobilinogen Auto test strip (U) [Mass/Vol]Ordered By: Edenilson Reinoso on 01-03-2024 Urobilinogen (U) [Mass/Vol] Normal mg/dL Normal [facility] WBC Auto (Bld) [#/Vol]Ordere d By: Edenilson Reinoso on 01-03-2024 WBC (Bld) [#/Vol] 16.9 10*3/uL 4.1-10.5 [facility] pH Auto test strip (U)Ordere d By: Edenilson Reinoso on 01-03-2024 pH (U) 5.0 [pH] 5.0-9.[address] [facility] COMPREHENSIVE METABOLIC PANE Vivek 12-14-2023 Albumin [Mass/Vol] 4.5 g/dL Normal 3.2-5.3 [facility] Comment on above: Performed By: #### Dannie MALDONADO, [id number] #### [facility] ([id number]) [address], [address] [place] [address] ALP [Catalytic activity/Vol] 83 U/L Normal 39-130 [facility] Comment on above: Performed By: #### Dannie MALDONADO, [id number] #### [facility] ([id number]) [address], [address] [place] [address] ALT [Catalytic activity/Vol] 25 U/L Normal 0-40 [facility] Comment on above: Performed By: #### Dannie MALDONADO, [id number] #### [facility] ([id number]) [address], [address] [place] [address] Anion gap [Moles/Vol] 11 mmol/L Normal 5-15 [facility] Comment on above: Performed By: #### Dannie MALDONADO, [id number] #### [facility] ([id number]) [address], [address] [place] [address] AST [Catalytic activity/Vol] 18 U/L Normal 0-41 [facility] Comment on above: Performed By: #### Dannie MALDONADO, [id number] #### [facility] ([id number]) [address], [address] [place] [address] Bilirubin [Mass/Vol] 0.8 mg/dL Normal 0.3-1.2 [facility] Comment on above: Performed By: #### Dannie MALDONADO, [id number] #### [facility] ([id number]) [address], [address] [place] [address] Calcium [Mass/Vol] 9.1 mg/dL Normal 8.5-10.5 [facility] Comment on above: Performed By: #### Dannie MALDONADO, [id number] #### [facility] ([id number]) [address], [address] [place] [address] Chloride [Moles/Vol] 105 mmol/L Normal 98-109 [facility] Comment on above: Performed By: #### Dannie MALDONADO, [id number] #### [facility] ([id number]) [address], [address] [place] [address] CO2 [Moles/Vol] 23 mmol/L Normal 22-32 [facility] Comment on above: Performed By: #### Dannie MALDONADO, [id number] #### [facility] ([id number]) [address], [address] [place] [address] Creatinine [Mass/Vol] 0.89 mg/dL Normal 0.60-1.30 [facility] Comment on above: Result Comment: METH OD TRACEABLE TO IDMS STANDARD Performed By: #### Dannie MALDONADO, [id number] #### [facility] ([id number]) [address] [place] [address] eGFR (CKD-EPI) NON-RACE DEPENDENT >90 Normal >59 [facility] Comment on above: Result Comment: Reported eGFR is based on the CKD-EPI 2020 equation that does not use a race coefficient. Performed By: #### Dannie MALDONADO, [id number] #### [facility] ([id number]) [address], [address] [place] [address] Glucose [Mass/Vol] 96 mg/dL Normal 65-99 [facility] Comment on above: Performed By: #### Dannie MALDONADO, [id number] #### [facility] ([id number]) [address], [address] [place] [address] Potassium [Moles/Vol] 4.0 mmol/L Normal 3.5-5.0 [facility] Comment on above: Performed By: #### Dannie MALDONADO, 58759-9 #### [facility] ([id number]) [address], [address] [place] [address] Protein [Mass/Vol] 7.1 g/dL Normal 6.0-8.0 [facility] Comment on above: Performed By: #### Dannie MALDONADO, 91482-1 #### [facility] ([id number]) [address], [address] [place] [address] Sodium [Moles/Vol] 139 mmol/L Normal 134-146 [facility] Comment on above: Performed By: #### Dannie MALDONADO, 98677-0 #### [facility] ([id number]) [address], [address] [place] [address] Urea nitrogen [Mass/Vol] 25 mg/dL Normal 5-27 [facility] Comment on above: Performed By: #### Dannie MALDONADO, 21341-5 #### [facility] ([id number]) [address], [address] [place] [address] Comprehensive metabolic pane vivek 12-14-2023 Albumin [Mass/Vol] 4.5 g/dL 3.2 - 5.3 g/dL [facility] ALP [Catalytic activity/Vol] 83 U/L 39 - 130 U/L [facility] ALT No additional P-5'-P [Catalytic activity/Vol] 25 U/L 0 - 40 U/L [facility] Anion gap [Moles/Vol] 11 mmol/L 5 - 15 mmol/L [facility] AST [Catalytic activity/Vol] 18 U/L 0 - 41 U/L [facility] Bilirubin [Mass/Vol] 0.8 mg/dL 0.3 - 1 .2 mg/dL [facility] [facility] Calcium [Mass/Vol] 9.1 mg/dL 8.5 - 10. 5 mg/dL [facility] Chloride [Moles/Vol] 105 mmol/L 98 - 10 9 mmol/L [facility] CO2 [Moles/Vol] 23 mmol/L 22 - 32 mmol/L [facility] Creatinine [Mass/Vol] 0.89 mg/dL 0.60 - 1.30 mg/dL [facility] Comment on above: METHOD TRACEABLE TO [facility] STANDARD eGFR (CKD-EPI)non-race dependent - PINF [facility] Comment on above: Reported eGFR is based on the CKD-EPI 2020 equation that does not use a race coefficient. Glucose [Mass/Vol] 96 mg/dL 65 - 99 mg/dL [facility] Potassium [Moles/Vol] 4.0 mmol/L 3.5 - 5.0 mmol/L [facility] Protein [Mass/Vol] 7.1 g/dL 6.0 - 8.0 g/dL [facility] Sodium [Moles/Vol] 139 mmol/L 134 - 146 mmol/L [facility] Urea nitrogen [Mass/Vol] 25 mg/dL 5 - 27 mg/dL [facility] Lipid 1996 panelon 4 Cholesterol [Mass/Vol] 124 mg/dL Low 150 - 200 mg/dL [facility] Cholesterol in HDL [Mass/Vol] 46 mg/dL 39 - PINF mg/dL [facility] Comment on above: HDL <40 mg/dL - High Risk HDL > or = 40mg/dL- Desirable HDL >60 mg/dL - Negative Risk Cholesterol in LDL [Mass/Vol] 57 mg/dL NINF - 130 mg/dL [facility] Comment on above: LDL <100 mg/dL - Desirable LDL >160 mg/dL - High Risk Cholesterol in VLDL [Mass/Vol] 21 mg/dL 0 - 30 mg/dL [facility] Cholesterol.total/Chol esterol in HDL [Mass ratio] 2.7 {ratio} 1.0 - 5.0 [facility] Interpretation and review of laboratory results Abnormal [facility] Triglyceride [Mass/Vol] 103 mg/dL 27 - 150 mg/dL [facility] Cholesterol [Mass/Vol] 124 mg/dL Low 150-200 [facility] Comment on above: Performed By: #### Dannie MALDONADO, [id number] #### [facility] ([id number]) [address] [place] [address] Cholesterol in HDL [Mass/Vol] 46 mg/dL Normal >39 [facility] Comment on above: Result Comment: HDL <40 mg/dL - High Risk HDL > or = 40mg/dL- Desirable HDL >60 mg/dL - Negative Risk Performed By: #### Dannie MALDONADO, [id number] #### [facility] ([id number]) [address], [address] [place] [address] Cholesterol in LDL [Mass/Vol] 57 mg/dL Normal <130 [facility] Comment on above: Result Comment: LDL <100 mg/dL - Desirable LDL >160 mg/dL - High Risk Performed By: #### C ERICA, [id number] #### [facility] ([id number]) [address], [address] [place] [address] Cholesterol in VLDL [Mass/Vol] 21 mg/dL Normal 0-30 [facility] Comment on above: Performed By: #### Dannie MALDONADO, [id number] #### [facility] ([id number]) [address], [address] [place] [address] CHOLESTEROL:HDL 2.7 Normal 1.0-5.0 [facility] Comment on above: Performed By: #### Dannie MALDONADO, [id number] #### [facility] ([id number]) [address], [address] [place] [address] Triglyceride [Mass/Vol] 103 mg/dL Normal 27-150 [facility] Comment on above: Performed By: #### Dannie MALDONADO, [id number] #### [facility] ([id number]) [address], [address] [place] [address] No Panel Informationon 12-14 [facility] Alanine aminotransferase [En zymatic activity/volume] in Serum or PlasmaOrdered By: Romel Davis on 12-08-2023 ALT [Catalytic activity/Vol] 31 U/L 7-[address] [facility] Albumin [Mass/volume] in Ser um or Plasma by Bromocresol green (BCG) dye binding methoOrdered By: Romel Davis on 12-08-2023 Albumin BCG dye [Mass/Vol] 4.3 g/dL 3.5-5.[address] [facility] Alkaline phosphatase [Enzyma tic activity/volume] in Serum or PlasmaOrdered By: Romel Dvais on 12-08-2023 ALP [Catalytic activity/Vol] 80 U/L 34-[address] [facility] Aspartate aminotransferase [ Enzymatic activity/volume] in Serum or PlasmaOrdered By: Romel Davis on 12-08-2023 AST [Catalytic activity/Vol] 19 U/L 13-[address] [facility] Automated erythrocytes count in urine sediment (number/area)Ordered By: Romel Davis on 12-08-2023 RBC Auto (Urine sed) [#/Area] 1-2 [HPF] 0-[address] [facility] Automated leukocytes count i n urine sediment (number/area)Ordered By: Romel Davis on 12-08-2023 WBC Auto (Urine sed) [#/Area] 0-1 [HPF] 0-[address] [facility] Basophils Auto (Bld) [#/Vol] Ordered By: Romel Davis on 12-08-2023 Basophils (Bld) [#/Vol] 0.0 10*3/uL 0.0-0.[address] [facility] Basophils/100 WBC Auto (Bld) Ordered By: Romel Davis on 12-08-2023 Basophils/100 WBC (Bld) 0.5 % . [facility] Bilirubin Auto test strip Ql (U)Ordered By: Romel Davis on 12-08-2023 Bilirubin Ql (U) Negative Negative [facility] Bilirubin.total [Mass/volume ] in Serum or PlasmaOrdered By: Romel Davis on 12-08-2023 Bilirubin [Mass/Vol] 0.6 mg/dL 0.3-1.0 [facility] Calcium [Mass/volume] in Ser um or PlasmaOrdered By: Romel Davis on 12-08-2023 Calcium [Mass/Vol] 9.4 mg/dL 8.6-10.3 [facility] Carbon dioxide, total [Moles /volume] in Serum or PlasmaOrdered By: Romel Davis on 12-08-2023 CO2 [Moles/Vol] 25.7 mmol/L 21.0-31.0 [facility] Chloride [Moles/volume] in S ace or PlasmaOrdered By: Romel Davis on 12-08-2023 Chloride [Moles/Vol] 105 mmol/L 98-107 [facility] Creatinine [Mass/volume] in Serum or PlasmaOrdered By: Romel Davis on 12-08-2023 Creatinine [Mass/Vol] 1.00 mg/dL 0.70-1.30 [facility] Eosinophils Auto (Bld) [#/Vo l]Ordered By: Romel Davis on 12-08-2023 Eosinophils (Bld) [#/Vol] 0.1 10*3/uL 0.0-0.[address] [facility] Eosinophils/100 WBC Auto (Bl d)Ordered By: Romel Davis on 12-08-2023 Eosinophils/100 WBC (Bld) 1.2 % . [facility] Erythrocyte distribution wid th Auto (RBC) [Ratio]Ordered By: Romel Davis on 12-08-2023 Erythrocyte distribution width (RBC) [Ratio] 14.5 % 12.0-14.[address] [facility] Erythrocyte sedimentation ra te by Photometric methodOrdered By: Romel Davis on 12-08-2023 ESR Photometric method (Bld) [Velocity] 5 mm/hr 0-[address] [facility] Globulin Calc (S) [Mass/Vol] Ordered By: Romel Davis on 12-08-2023 Globulin (S) [Mass/Vol] 2.0 g/dL [facility] Glucose [Mass/volume] in Ser um or PlasmaOrdered By: Romel Davis on 12-08-2023 Glucose [Mass/Vol] 88 mg/dL 70-100 [facility] Comment on above: ADA recommended refe rence rangeRandom Glucose Reference Range is dependent on time and content of last meal. Glucose of more than 200 mg/dL in a nonstressed, ambulatory subject supports the diagnosis of Diabetes Mellitus. Hematocrit Auto (Bld) [Volum e fraction]Ordered By: Romel Davis on 12-08-2023 Hematocrit (Bld) [Volume fraction] 46.1 % 38.8-50.[address] [facility] Hemoglobin [Mass/volume] in BloodOrdered By: Romel Davis on 12-08-2023 Hemoglobin (Bld) [Mass/Vol] 15.9 g/dL 13.0-17.[address] [facility] Ketones Auto test strip (U) [Mass/Vol]Ordered By: Romel Davis on 12-08-2023 Ketones (U) [Mass/Vol] Negative Negative [facility] - UrinalysisOrder ed By: Romel Davis on 12-08-2023 Hyaline casts LM Ql (Urine sed) 0-8 [LPF] 0-[address] [facility] Leukocytes [#/volume] correc nat for nucleated erythrocytes in Blood by Automated counOrdered By: Romel Davis on 12-08-2023 WBC corrected for nucl RBC Auto (Bld) [#/Vol] 6.4 10*3/uL 4.1-10.[address] [facility] Lymphocytes Auto (Bld) [#/Vo l]Ordered By: Romel Dvais on 12-08-2023 Lymphocytes (Bld) [#/Vol] 1.0 10*3/uL 1.00-4.[address] [facility] Lymphocytes/100 WBC Auto (Bl d)Ordered By: Romel Davis on 12-08-2023 Lymphocytes/100 WBC (Bld) 15.1 % . [facility] MCH Auto (RBC) [Entitic mass ]Ordered By: Romel Davis on 12-08-2023 MCH (RBC) [Entitic mass] 30.7 pg 27.5-35.[address] [facility] MCHC Auto (RBC) [Mass/Vol]Or dered By: Romel Davis on 12-08-2023 MCHC (RBC) [Mass/Vol] 34.5 g/dL 32.5-35.6 [facility] MCV Auto (RBC) [Entitic vol] Ordered By: Romel Davis on 12-08-2023 MCV (RBC) [Entitic vol] 89.0 fL 83.5-[address] [facility] Monocytes Auto (Bld) [#/Vol] Ordered By: Romel Davis on 12-08-2023 Monocytes (Bld) [#/Vol] 0.9 10*3/uL 0.0-0.[address] [facility] Monocytes/100 WBC Auto (Bld) Ordered By: Romel Davis on 12-08-2023 Monocytes/100 WBC (Bld) 14.0 % . [facility] Neutrophils Auto (Bld) [#/Vo l]Ordered By: Romel Davis on 12-08-2023 Neutrophils (Bld) [#/Vol] 4.4 10*3/uL 1.8-7.[address] [facility] Neutrophils/100 WBC Auto (Bl d)Ordered By: Romel Davis on 12-08-2023 Neutrophils/100 WBC (Bld) 69.2 % . [facility] No Panel InformationOrdered By: Romel Dvais on 12-08-2023 Estimated GFR (CKD-EPI) > 60.0 mL/Min [facility] Creatinine Clearance (Chem N/A [facility] Total Complement (CH50) 58 U/mL >[address] [facility] Comment on above: Age Male Female [...] to determine out of range values.Performed at: [facility] [employer] [id number] Director: Richy Ardon PhD, Phone: [phone] Nucleated erythrocytes [Pres ence] in Blood by Automated countOrdered By: Romel Davis on 12-08-2023 Nucleated RBC Auto Ql (Bld) 0.1 /100{WBC} 0-0.[address] [facility] Platelet mean volume Auto (B ld) [Entitic vol]Ordered By: Romel Davis on 12-08-2023 Platelet mean volume (Bld) [Entitic vol] 8.7 fL 6.6-10.[address] [facility] Platelets Auto (Bld) [#/Vol] Ordered By: Romel Davis on 12-08-2023 Platelets (Bld) [#/Vol] 203 10*3/uL 150-[address] [facility] Potassium [Moles/volume] in Serum or PlasmaOrdered By: Romel Davis on 12-08-2023 Potassium [Moles/Vol] 4.3 mmol/L 3.5-5.1 [facility] Protein Auto test strip (U) [Mass/Vol]Ordered By: Romel Davis on 12-08-2023 Protein (U) [Mass/Vol] Negative Negative [facility] Protein [Mass/volume] in Ser um or PlasmaOrdered By: Romel Davis on 12-08-2023 Protein [Mass/Vol] 6.3 g/dL 6.4-8.9 [facility] RBC Auto (Bld) [#/Vol]Ordere d By: Romel Davis on 12-08-2023 RBC (Bld) [#/Vol] 5.18 10*6/uL 3.90-5.60 [facility] Serum or plasma albumin/glob ulin mass ratioOrdered By: Romel Davis on 12-08-2023 Albumin/Globulin [Mass ratio] 2.2 {ratio} [facility] Serum or plasma anion gap de terminationOrdered By: Romel Davis on 12-08-2023 Anion gap [Moles/Vol] 10.6 mmol/L 6.0-15.0 [facility] Serum or plasma complement C 3 measurement (mass/volume)Ordered By: Romel Davis on 12-08-2023 Complement C3 [Mass/Vol] 122 mg/dL 82-[address] [facility] Comment on above: Performed at: [place] [id number] Director: Richy Ardon PhD, Phone: [phone] Serum or plasma complement C 4 measurement (mass/volume)Ordered By: Romel Davis on 12-08-2023 Complement C4 [Mass/Vol] 14 mg/dL 12-[address] [facility] Sodium [Moles/volume] in Ser um or PlasmaOrdered By: Romel Davis on 12-08-2023 Sodium [Moles/Vol] 137 mmol/L 136-145 [facility] Squamous epithelial cells de tection in urine sediment by light microscopyOrdered By: Romel Davis on 12-08-2023 Epithelial cells.squamous LM Ql (Urine sed) None seen [HPF] 0-[address] [facility] Urea nitrogen [Mass/volume] in Serum or PlasmaOrdered By: Romel Davis on 12-08-2023 Urea nitrogen [Mass/Vol] 27 mg/dL 7-[address] [facility] Urine appearanceOrdered By: Rmoel Davis on 12-08-2023 Appearance (U) Clear Clear [facility] Urine bacteria detection by automated methodOrdered By: Romel Davis on 01-18-2024 Bacteria Auto Ql (U) None seen None Seen [facility] Urine colorOrdered By: Manuel Davis on 12-08-2023 Color (U) Yellow Yellow [facility] Urine glucose measurement by automated test strip (mass/volume)Ordered By: Romel Davis on 12-08-2023 Glucose Auto test strip (U) [Mass/Vol] Normal mg/dL Normal [facility] Urine hemoglobin detection b y automated test stripOrdered By: Romel Davis on 12-08-2023 Hemoglobin Auto test strip Ql (U) Negative Negative [facility] Urine leukocyte esterase det ection by automated test stripOrdered By: Romel Davis on 12-08-2023 Leukocyte esterase Auto test strip Ql (U) Negative Negative [facility] Urine nitrite detection by a utomated test stripOrdered By: Romel Davis on 12-08-2023 Nitrite Auto test strip Ql (U) Negative Negative [facility] Urobilinogen Auto test strip (U) [Mass/Vol]Ordered By: Romel Davis on 12-08-2023 Urobilinogen (U) [Mass/Vol] Normal mg/dL Normal [facility] WBC Auto (Bld) [#/Vol]Ordere d By: Romel Davis on 12-08-2023 WBC (Bld) [#/Vol] 6.4 10*3/uL 4.1-10.5 [facility] pH Auto test strip (U)Ordere d By: Romel Davis on 12-08-2023 pH (U) 1.025 [pH] 1.001-1.[address] [facility] pH (U) 7.0 [pH] 5.0-9.[address] [facility] Carbon dioxide, total [Moles /volume] in Serum or PlasmaOrdered By: Zac Muniz on 10-20-2023 CO2 [Moles/Vol] 23.8 mmol/L 21.0-31.0 [facility] Chloride [Moles/volume] in S ace or PlasmaOrdered By: Zac Muniz on 10-20-2023 Chloride [Moles/Vol] 107 mmol/L 98-107 [facility] Potassium [Moles/volume] in Serum or PlasmaOrdered By: Zac Muniz on 10-20-2023 Potassium [Moles/Vol] 4.1 mmol/L 3.5-5.1 [facility] Serum or plasma anion gap de terminationOrdered By: Zac Muniz on 10-20-2023 Anion gap [Moles/Vol] 12.3 mmol/L 6.0-15.0 [facility] Sodium [Moles/volume] in Ser um or PlasmaOrdered By: Zac Muniz on 10-20-2023 Sodium [Moles/Vol] 139 mmol/L 136-145 [facility] Alanine aminotransferase [En zymatic activity/volume] in Serum or PlasmaOrdered By: Romel Davis on 09-05-2023 ALT [Catalytic activity/Vol] 29 U/L 7-[address] [facility] Albumin [Mass/volume] in Ser um or Plasma by Bromocresol green (BCG) dye binding methoOrdered By: Romel Davis on 09-05-2023 Albumin BCG dye [Mass/Vol] 4.2 g/dL 3.5-5.[address] [facility] Alkaline phosphatase [Enzyma tic activity/volume] in Serum or PlasmaOrdered By: Romel Davis on 09-05-2023 ALP [Catalytic activity/Vol] 83 U/L 34-[address] [facility] Aspartate aminotransferase [ Enzymatic activity/volume] in Serum or PlasmaOrdered By: Romel Davis on 09-05-2023 AST [Catalytic activity/Vol] 19 U/L 13-[address] [facility] Automated erythrocytes count in urine sediment (number/area)Ordered By: Romel Davis on 09-05-2023 RBC Auto (Urine sed) [#/Area] 0-1 [HPF] 0-[address] [facility] Automated leukocytes count i n urine sediment (number/area)Ordered By: Romel Davis on 09-05-2023 WBC Auto (Urine sed) [#/Area] 0-1 [HPF] 0-[address] [facility] Basophils Auto (Bld) [#/Vol] Ordered By: Romel Davis on 09-05-2023 Basophils (Bld) [#/Vol] 0.0 10*3/uL 0.0-0.[address] [facility] Basophils/100 WBC Auto (Bld) Ordered By: Romel Davis on 09-05-2023 Basophils/100 WBC (Bld) 0.6 % . [facility] Bilirubin Test strip Ql (U)O rdered By: Romel Davis on 09-05-2023 Bilirubin Ql (U) Negative Negative [facility] Bilirubin.total [Mass/volume ] in Serum or PlasmaOrdered By: Romel Davis on 09-05-2023 Bilirubin [Mass/Vol] 0.8 mg/dL 0.3-1.0 [facility] Calcium [Mass/volume] in Ser um or PlasmaOrdered By: Romel Davis on 09-05-2023 Calcium [Mass/Vol] 9.2 mg/dL 8.6-10.3 [facility] Carbon dioxide, total [Moles /volume] in Serum or PlasmaOrdered By: Romel Davis on 09-05-2023 CO2 [Moles/Vol] 27.9 mmol/L 21.0-31.0 [facility] Chloride [Moles/volume] in S ace or PlasmaOrdered By: Romle Davis on 09-05-2023 Chloride [Moles/Vol] 107 mmol/L 98-107 [facility] Color Auto (U)Ordered By: Bridgett Davis on 09-05-2023 Color (U) Yellow Yellow [facility] Creatinine [Mass/volume] in Serum or PlasmaOrdered By: Romel Davis on 09-05-2023 Creatinine [Mass/Vol] 0.88 mg/dL 0.70-1.30 [facility] Eosinophils Auto (Bld) [#/Vo l]Ordered By: Romel Davis on 09-05-2023 Eosinophils (Bld) [#/Vol] 0.1 10*3/uL 0.0-0.[address] [facility] Eosinophils/100 WBC Auto (Bl d)Ordered By: Romel Davis on 09-05-2023 Eosinophils/100 WBC (Bld) 0.9 % . [facility] Erythrocyte distribution wid th Auto (RBC) [Ratio]Ordered By: Romel Davis on 09-05-2023 Erythrocyte distribution width (RBC) [Ratio] 14.1 % 12.0-14.[address] [facility] Erythrocyte sedimentation ra te by Photometric methodOrdered By: Romel Davis on 09-05-2023 ESR Photometric method (Bld) [Velocity] 3 mm/hr 0-[address] [facility] Globulin Calc (S) [Mass/Vol] Ordered By: Romel Davis on 09-05-2023 Globulin (S) [Mass/Vol] 1.9 g/dL [facility] Glucose [Mass/volume] in Ser um or PlasmaOrdered By: Romel Davis on 09-05-2023 Glucose [Mass/Vol] 75 mg/dL 70-100 [facility] Comment on above: ADA recommended refe rence rangeRandom Glucose Reference Range is dependent on time and content of last meal. Glucose of more than 200 mg/dL in a nonstressed, ambulatory subject supports the diagnosis of Diabetes Mellitus. Hematocrit Auto (Bld) [Volum e fraction]Ordered By: Romel Davis on 09-05-2023 Hematocrit (Bld) [Volume fraction] 44.5 % 38.8-50.[address] [facility] Hemoglobin [Mass/volume] in BloodOrdered By: Romel Davis on 09-05-2023 Hemoglobin (Bld) [Mass/Vol] 15.2 g/dL 13.0-17.[address] [facility] Ketones Auto test strip (U) [Mass/Vol]Ordered By: Romel Davis on 09-05-2023 Ketones (U) [Mass/Vol] Trace Negative [facility] - UrinalysisOrder ed By: Romel Davis on 09-05-2023 Hyaline casts LM Ql (Urine sed) None seen [LPF] 0-[address] [facility] Leukocytes [#/volume] correc nat for nucleated erythrocytes in Blood by Automated counOrdered By: Romel Davis on 09-05-2023 WBC corrected for nucl RBC Auto (Bld) [#/Vol] 5.9 10*3/uL 4.1-10.[address] [facility] Lymphocytes Auto (Bld) [#/Vo l]Ordered By: Romel Davis on 09-05-2023 Lymphocytes (Bld) [#/Vol] 1.1 10*3/uL 1.00-4.[address] [facility] Lymphocytes/100 WBC Auto (Bl d)Ordered By: Romel Davis on 09-05-2023 Lymphocytes/100 WBC (Bld) 17.7 % . [facility] MCH Auto (RBC) [Entitic mass ]Ordered By: Romel Davis on 09-05-2023 MCH (RBC) [Entitic mass] 30.7 pg 27.5-35.[address] [facility] MCHC Auto (RBC) [Mass/Vol]Or dered By: Romel Davis on 09-05-2023 MCHC (RBC) [Mass/Vol] 34.2 g/dL 32.5-35.6 [facility] MCV Auto (RBC) [Entitic vol] Ordered By: Romel Davis on 09-05-2023 MCV (RBC) [Entitic vol] 89.9 fL 83.5-[address] [facility] Monocytes Auto (Bld) [#/Vol] Ordered By: Romel Davis on 09-05-2023 Monocytes (Bld) [#/Vol] 0.6 10*3/uL 0.0-0.[address] [facility] Monocytes/100 WBC Auto (Bld) Ordered By: Romel Davis on 09-05-2023 Monocytes/100 WBC (Bld) 10.3 % . [facility] Neutrophils Auto (Bld) [#/Vo l]Ordered By: Romel Davis on 09-05-2023 Neutrophils (Bld) [#/Vol] 4.2 10*3/uL 1.8-7.[address] [facility] Neutrophils/100 WBC Auto (Bl d)Ordered By: Romel Davis on 09-05-2023 Neutrophils/100 WBC (Bld) 70.5 % . [facility] Nitrite Test strip Ql (U)Ord ered By: Romel Davis on 09-05-2023 Nitrite Ql (U) Negative Negative [facility] No Panel InformationOrdered By: Romel Davis on 09-05-2023 Estimated GFR (CKD-EPI) > 60.0 mL/Min [facility] Creatinine Clearance (Chem N/A [facility] Total Complement (CH50) 57 U/mL >[address] [facility] Comment on above: Age Male Female [...] determine out of range values.Performed at: - [facility] [id number] Director: Richy Ardon PhD, Phone: [phone] Nucleated erythrocytes [Pres ence] in Blood by Automated countOrdered By: Romel Davis on 09-05-2023 Nucleated RBC Auto Ql (Bld) 0.1 /100{WBC} 0-0.[address] [facility] Platelet mean volume Auto (B ld) [Entitic vol]Ordered By: Romel Davis on 09-05-2023 Platelet mean volume (Bld) [Entitic vol] 8.9 fL 6.6-10.[address] [facility] Platelets Auto (Bld) [#/Vol] Ordered By: Romel Davis on 09-05-2023 Platelets (Bld) [#/Vol] 175 10*3/uL 150-[address] [facility] Potassium [Moles/volume] in Serum or PlasmaOrdered By: Romel Davis on 09-05-2023 Potassium [Moles/Vol] 4.1 mmol/L 3.5-5.1 [facility] Protein Auto test strip (U) [Mass/Vol]Ordered By: Romel Davis on 09-05-2023 Protein (U) [Mass/Vol] Negative Negative [facility] Protein [Mass/volume] in Ser um or PlasmaOrdered By: Romel Davis on 09-05-2023 Protein [Mass/Vol] 6.1 g/dL 6.4-8.9 [facility] RBC Auto (Bld) [#/Vol]Ordere d By: Romel Davis on 09-05-2023 RBC (Bld) [#/Vol] 4.96 10*6/uL 3.90-5.60 [facility] Serum or plasma albumin/glob ulin mass ratioOrdered By: Romel Davis on 09-05-2023 Albumin/Globulin [Mass ratio] 2.2 {ratio} [facility] Serum or plasma anion gap de terminationOrdered By: Romel Davis on 09-05-2023 Anion gap [Moles/Vol] 10.2 mmol/L 6.0-15.0 [facility] Serum or plasma complement C 3 measurement (mass/volume)Ordered By: Romel Davis on 09-05-2023 Complement C3 [Mass/Vol] 124 mg/dL 82-[address] [facility] Comment on above: Performed at: [facility] [employer] [place] [id number] Director: Richy Ardon PhD, Phone: [phone] Serum or plasma complement C 4 measurement (mass/volume)Ordered By: Romel Davis on 09-05-2023 Complement C4 [Mass/Vol] 15 mg/dL 12-[address] [facility] Sodium [Moles/volume] in Ser um or PlasmaOrdered By: Romel Davis on 09-05-2023 Sodium [Moles/Vol] 141 mmol/L 136-145 [facility] Specific gravity Auto test s trip (U) [Rel density]Ordered By: Romel Davis on 09-05-2023 Specific gravity (U) [Rel density] 1.025 1.001-1.[address] [facility] Squamous epithelial cells de tection in urine sediment by light microscopyOrdered By: Romel Davis on 09-05-2023 Epithelial cells.squamous LM Ql (Urine sed) None seen [HPF] 0-[address] [facility] Urea nitrogen [Mass/volume] in Serum or PlasmaOrdered By: Romel Davis on 09-05-2023 Urea nitrogen [Mass/Vol] 19 mg/dL 7-[address] [facility] Urine bacteria detection by automated methodOrdered By: Romel Davis on 09-05-2023 Bacteria Auto Ql (U) None seen None Seen [facility] Urine clarity by refractomet ry automatedOrdered By: Romel Davis on 09-05-2023 Clarity Refractometry automated (U) Clear Clear [facility] Urine glucose measurement by automated test strip (mass/volume)Ordered By: Romel Davis on 09-05-2023 Glucose Auto test strip (U) [Mass/Vol] Normal mg/dL Normal [facility] Urine hemoglobin detection b y automated test stripOrdered By: Romel Davis on 09-05-2023 Hemoglobin Auto test strip Ql (U) Negative Negative [facility] Urine leukocyte esterase det ection by automated test stripOrdered By: Romel Davis on 09-05-2023 Leukocyte esterase Auto test strip Ql (U) Negative Negative [facility] Urobilinogen Auto test strip (U) [Mass/Vol]Ordered By: Romel Davis on 09-05-2023 Urobilinogen (U) [Mass/Vol] Normal mg/dL Normal [facility] WBC Auto (Bld) [#/Vol]Ordere d By: Romel Davis on 09-05-2023 WBC (Bld) [#/Vol] 5.9 10*3/uL 4.1-10.5 [facility] [place] pH Auto test strip (U)Ordere d By: Romel Davis on 09-05-2023 pH (U) 5.5 [pH] 5.0-9.[address] [facility] 24 hour urine sodium measure ment (moles/time)Ordered By: Zac Muniz on 08-16-2023 Sodium (24H U) [Moles/Time] 181 mmol/24 40-[address] [facility] 24 hour urine uric acid ophelia urement (mass/time)Ordered By: Zac Muniz on 08-16-2023 Urate (24H U) [Mass/Time] 674.9 mg/24 hr 182.4-936. [address] [facility] Comment on above: Performed at: [facility] [address] [id number] Director: Richy Ardon PhD, Phone: [phone] CT biopsyOrdered By: Zac Muniz on 08-16-2023 CT biopsy [address] [facility] Calcium [Mass/time] in 24 ho ur UrineOrdered By: Zac Muniz on 08-16-2023 Calcium (24H U) [Mass/Time] 98 mg/24 hr 0-[address] [facility] Calcium [Mass/volume] in 24 hour UrineOrdered By: Zac Muniz on 08-16-2023 Calcium (24H U) [Mass/Vol] 3.3 mg/dL Not Estab. [facility] Calcium [Mass/volume] in Ser um or PlasmaOrdered By: Zac Muniz on 08-16-2023 Calcium [Mass/Vol] 9.2 mg/dL 8.6-10.3 [facility] [place] Carbon dioxide, total [Moles /volume] in Serum or PlasmaOrdered By: Zac Muniz on 08-16-2023 CO2 [Moles/Vol] 22.4 mmol/L 21.0-31.0 [facility] Chloride [Moles/volume] in S ace or PlasmaOrdered By: Zac Muniz on 08-16-2023 Chloride [Moles/Vol] 108 mmol/L 98-107 [facility] Creatinine [Mass/volume] in Serum or PlasmaOrdered By: Zac Muniz on 08-16-2023 Creatinine [Mass/Vol] 0.88 mg/dL 0.70-1.30 [facility] Creatinine [Mass/volume] in UrineOrdered By: Zac Muniz on 08-16-2023 Creatinine (U) [Mass/Vol] 57.00 mg/dL 14.00-26.[address] [facility] Magnesium [Mass/time] in 24 hour UrineOrdered By: Zac Muniz on 08-16-2023 Magnesium (24H U) [Mass/Time] 97.7 mg/24 hr 12.0-293.[address] [facility] Magnesium [Mass/volume] in U rineOrdered By: Zac Muniz on 08-16-2023 Magnesium (U) [Mass/Vol] 3.3 mg/dL Not Estab. [facility] No Panel InformationOrdered By: Zac Muniz on 08-16-2023 Estimated GFR (CKD-EPI) > 60.0 mL/Min [facility] Creatinine Clearance (Chem N/A [facility] Urine Citric Acid 219 mg/L Undefined [facility] Comment on above: This test was develo ped and its performance characteristicsdetermined by [facility]. It has not been cleared orapproved by the Food and Drug Administration. Urine Citric Acid 24 Hour 648 mg/24 hr 320-[address] [facility] Comment on above: Performed at: [facility] [address] [id number] Director: Kaley Joaquin MD, Phone: [phone] Urine Creatinine 24 Hour 1.68 g/24 hr 1.00-2.[address] [facility] Oxalate [Mass/time] in 24 ho ur UrineOrdered By: Zac Muniz on 08-16-2023 Oxalate (24H U) [Mass/Time] 18 mg/24 hr 7-[address] [facility] Oxalate [Mass/volume] in Uri neOrdered By: Zac Muniz on 08-16-2023 Oxalate (U) [Mass/Vol] 6 mg/L Undefined [facility] Parathyrin.intact [Mass/volu me] in Serum or PlasmaOrdered By: Zca Muniz on 08-16-2023 Parathyrin.intact [Mass/Vol] 53.9 pg/mL 12-[address] [facility] Phosphate [Mass/time] in 24 hour UrineOrdered By: Zac Muniz on 08-16-2023 Phosphate (24H U) [Mass/Time] 462 mg/24 hr 390-[address] [facility] Phosphate [Mass/volume] in U rineOrdered By: Zac Muniz on 08-16-2023 Phosphate (U) [Mass/Vol] 15.6 mg/dL Not Estab. [facility] Potassium [Moles/volume] in Serum or PlasmaOrdered By: Zac Muniz on 08-16-2023 Potassium [Moles/Vol] 4.0 mmol/L 3.5-5.1 [facility] Serum or plasma anion gap de terminationOrdered By: Zac Muniz on 08-16-2023 Anion gap [Moles/Vol] 12.6 mmol/L 6.0-15.0 [facility] Sodium [Moles/volume] in Ser um or PlasmaOrdered By: Zac Muniz on 08-16-2023 Sodium [Moles/Vol] 139 mmol/L 136-145 [facility] [place] Sodium [Moles/volume] in Uri neOrdered By: Zac Muniz on 08-16-2023 Sodium (U) [Moles/Vol] 61.0 mmol/L F [facility] Comment on above: No reference range e stablished Urate [Mass/volume] in Serum or PlasmaOrdered By: Zac Muniz on 08-16-2023 Urate [Mass/Vol] 4.3 mg/dL 4.4-7.6 [facility] Urea nitrogen [Mass/volume] in Serum or PlasmaOrdered By: Zac Muniz on 08-16-2023 Urea nitrogen [Mass/Vol] 22 mg/dL 7-[address] [facility] Urine uric acid measurement (mass/volume)Ordered By: Zac Muniz on 08-16-2023 Urate (U) [Mass/Vol] 22.8 mg/dL Not Estab. [facility] Urine volume measurementOrde red By: Zac Muniz on 08-16-2023 Specimen volume (U) 2960 ml [facility] Alanine aminotransferase [En zymatic activity/volume] in Serum or PlasmaOrdered By: Zac Muniz on 05-31-2023 ALT [Catalytic activity/Vol] 34 U/L 7-[address] [facility] Albumin [Mass/volume] in Ser um or Plasma by Bromocresol green (BCG) dye binding methoOrdered By: Zac Muniz on 05-31-2023 Albumin BCG dye [Mass/Vol] 4.4 g/dL 3.5-5.[address] [facility] Alkaline phosphatase [Enzyma tic activity/volume] in Serum or PlasmaOrdered By: Zac Muniz on 05-31-2023 ALP [Catalytic activity/Vol] 82 U/L 34-[address] [facility] Aspartate aminotransferase [ Enzymatic activity/volume] in Serum or PlasmaOrdered By: Zac Muniz on 05-31-2023 AST [Catalytic activity/Vol] 24 U/L 13-[address] [facility] Automated erythrocytes count in urine sediment (number/area)Ordered By: Christine Sanchez on 05-31-2023 RBC Auto (Urine sed) [#/Area] 1-2 [HPF] 0-[address] [facility] Automated leukocytes count i n urine sediment (number/area)Ordered By: Christine Sanchez on 05-31-2023 WBC Auto (Urine sed) [#/Area] 0-1 [HPF] 0-[address] [facility] Basophils Auto (Bld) [#/Vol] Ordered By: Christine Sanchez on 05-31-2023 Basophils (Bld) [#/Vol] 0.0 10*3/uL 0.0-0.[address] [facility] Basophils/100 WBC Auto (Bld) Ordered By: Christine Sanchez on 05-31-2023 Basophils/100 WBC (Bld) 0.8 % . [facility] Bilirubin Test strip Ql (U)O rdered By: Christine Sanchez on 05-31-2023 Bilirubin Ql (U) Negative Negative [facility] Bilirubin.total [Mass/volume ] in Serum or PlasmaOrdered By: Zac Muniz on 05-31-2023 Bilirubin [Mass/Vol] 0.8 mg/dL 0.3-1.0 [facility] Calcium [Mass/volume] in Ser um or PlasmaOrdered By: Zac Muniz on 05-31-2023 Calcium [Mass/Vol] 9.1 mg/dL 8.6-10.3 [facility] [place] Carbon dioxide, total [Moles /volume] in Serum or PlasmaOrdered By: Zac Muniz on 05-31-2023 CO2 [Moles/Vol] 24.0 mmol/L 21.0-31.0 [facility] Chloride [Moles/volume] in S ace or PlasmaOrdered By: Zac Muniz on 05-31-2023 Chloride [Moles/Vol] 106 mmol/L 98-107 [facility] Color Auto (U)Ordered By: Marianna Arellano on 05-31-2023 Color (U) Yellow Yellow [facility] Creatinine [Mass/volume] in Serum or PlasmaOrdered By: Zac Muniz on 05-31-2023 Creatinine [Mass/Vol] 1.05 mg/dL 0.70-1.30 [facility] Eosinophils Auto (Bld) [#/Vo l]Ordered By: Christine Sanchez on 05-31-2023 Eosinophils (Bld) [#/Vol] 0.1 10*3/uL 0.0-0.[address] [facility] Eosinophils/100 WBC Auto (Bl d)Ordered By: Christine Sanchez on 05-31-2023 Eosinophils/100 WBC (Bld) 1.4 % . [facility] Erythrocyte distribution wid th Auto (RBC) [Ratio]Ordered By: Christine Sanchez on 05-31-2023 Erythrocyte distribution width (RBC) [Ratio] 14.9 % 12.0-14.[address] [facility] Erythrocyte sedimentation ra te by Photometric methodOrdered By: Christine Sanchez on 05-31-2023 ESR Photometric method (Bld) [Velocity] 6 mm/hr 0-[address] [facility] Globulin Calc (S) [Mass/Vol] Ordered By: Zac Muniz on 05-31-2023 Globulin (S) [Mass/Vol] 2.3 g/dL [facility] Glucose [Mass/volume] in Ser um or PlasmaOrdered By: Zac Muniz on 05-31-2023 Glucose [Mass/Vol] 82 mg/dL 70-100 [facility] [place] Comment on above: ADA recommended refe rence rangeRandom Glucose Reference Range is dependent on time and content of last meal. Glucose of more than 200 mg/dL in a nonstressed, ambulatory subject supports the diagnosis of Diabetes Mellitus. Hematocrit Auto (Bld) [Volum e fraction]Ordered By: Christine Sanchez on 05-31-2023 Hematocrit (Bld) [Volume fraction] 43.1 % 38.8-50.[address] [facility] Hemoglobin [Mass/volume] in BloodOrdered By: Christine Sanchez on 05-31-2023 Hemoglobin (Bld) [Mass/Vol] 14.9 g/dL 13.0-17.[address] [facility] Ketones Auto test strip (U) [Mass/Vol]Ordered By: Christine Sanchez on 05-31-2023 Ketones (U) [Mass/Vol] Trace Negative [facility] - UrinalysisOrder ed By: Christine Sanchez on 05-31-2023 Hyaline casts LM Ql (Urine sed) 0-8 [LPF] 0-[address] [facility] Leukocytes [#/volume] correc nat for nucleated erythrocytes in Blood by Automated counOrdered By: Christine Sanchez on 05-31-2023 WBC corrected for nucl RBC Auto (Bld) [#/Vol] 5.5 10*3/uL 4.1-10.[address] [facility] Lymphocytes Auto (Bld) [#/Vo l]Ordered By: Christine Sanchez on 05-31-2023 Lymphocytes (Bld) [#/Vol] 1.3 10*3/uL 1.00-4.[address] [facility] Lymphocytes/100 WBC Auto (Bl d)Ordered By: Christine Sanchez on 05-31-2023 Lymphocytes/100 WBC (Bld) 24.3 % . [facility] MCH Auto (RBC) [Entitic mass ]Ordered By: Christine Sanchez on 05-31-2023 MCH (RBC) [Entitic mass] 30.8 pg 27.5-35.[address] [facility] MCHC Auto (RBC) [Mass/Vol]Or dered By: Christine Sanchez on 05-31-2023 MCHC (RBC) [Mass/Vol] 34.6 g/dL 32.5-35.6 [facility] MCV Auto (RBC) [Entitic vol] Ordered By: Christine Sanchez on 05-31-2023 MCV (RBC) [Entitic vol] 89.1 fL 83.5-[address] [facility] Monocytes Auto (Bld) [#/Vol] Ordered By: Christine Sanchez on 05-31-2023 Monocytes (Bld) [#/Vol] 0.7 10*3/uL 0.0-0.[address] [facility] Monocytes/100 WBC Auto (Bld) Ordered By: Christine Sanchez on 05-31-2023 Monocytes/100 WBC (Bld) 12.9 % . [facility] Neutrophils Auto (Bld) [#/Vo l]Ordered By: Christine Sanchez on 05-31-2023 Neutrophils (Bld) [#/Vol] 3.3 10*3/uL 1.8-7.[address] [facility] Neutrophils/100 WBC Auto (Bl d)Ordered By: Christine Sanchez on 05-31-2023 Neutrophils/100 WBC (Bld) 60.6 % . [facility] Nitrite Test strip Ql (U)Ord ered By: Christine Sanchez on 05-31-2023 Nitrite Ql (U) Negative Negative [facility] No Panel InformationOrdered By: Zac Muniz on 05-31-2023 Estimated GFR (CKD-EPI) > 60.0 mL/Min [facility] Creatinine Clearance (Chem N/A [facility] No Panel InformationOrdered By: Christine Sanchez on 05-31-2023 Total Complement (CH50) 60 U/mL >[address] [facility] Comment on above: Age Male Female [...] to determine out of range values.Performed at: [place] [id number] Director: Richy Ardon PhD, Phone: [phone] Nucleated erythrocytes [Pres ence] in Blood by Automated countOrdered By: Christine Sanchez on 05-31-2023 Nucleated RBC Auto Ql (Bld) 0.1 /100{WBC} 0-0.[address] [facility] Platelet mean volume Auto (B ld) [Entitic vol]Ordered By: Christine Sanchez on 05-31-2023 Platelet mean volume (Bld) [Entitic vol] 8.4 fL 6.6-10.[address] [facility] Platelets Auto (Bld) [#/Vol] Ordered By: Christine Sanchez on 05-31-2023 Platelets (Bld) [#/Vol] 178 10*3/uL 150-[address] [facility] Potassium [Moles/volume] in Serum or PlasmaOrdered By: Zac Muniz on 05-31-2023 Potassium [Moles/Vol] 4.4 mmol/L 3.5-5.1 [facility] Protein Auto test strip (U) [Mass/Vol]Ordered By: Christine Sanchez on 05-31-2023 Protein (U) [Mass/Vol] Trace mg/dL Negative [facility] Protein [Mass/volume] in Ser um or PlasmaOrdered By: Zac Muniz on 05-31-2023 Protein [Mass/Vol] 6.7 g/dL 6.4-8.9 [facility] [place] RBC Auto (Bld) [#/Vol]Ordere d By: Christine Sanchez on 05-31-2023 RBC (Bld) [#/Vol] 4.84 10*6/uL 3.90-5.60 [facility] Serum or plasma albumin/glob ulin mass ratioOrdered By: Zac Muniz on 05-31-2023 Albumin/Globulin [Mass ratio] 1.9 {ratio} [facility] Serum or plasma anion gap de terminationOrdered By: Zac Mnuiz on 05-31-2023 Anion gap [Moles/Vol] 11.4 mmol/L 6.0-15.0 [facility] Serum or plasma complement C 3 measurement (mass/volume)Ordered By: Christine Sanchez on 05-31-2023 Complement C3 [Mass/Vol] 132 mg/dL 82-[address] [facility] Comment on above: Performed at: [address] Director: Richy Ardon PhD, Phone: [phone] Serum or plasma complement C 4 measurement (mass/volume)Ordered By: Christine Sanchez on 05-31-2023 Complement C4 [Mass/Vol] 16 mg/dL 12-[address] [facility] Sodium [Moles/volume] in Ser um or PlasmaOrdered By: Zac Muniz on 05-31-2023 Sodium [Moles/Vol] 137 mmol/L 136-145 [facility] [place] Specific gravity Auto test s trip (U) [Rel density]Ordered By: Christine Sanchez on 05-31-2023 Specific gravity (U) [Rel density] 1.023 1.001-1.[address] [facility] Squamous epithelial cells de tection in urine sediment by light microscopyOrdered By: Christine Sanchez on 05-31-2023 Epithelial cells.squamous LM Ql (Urine sed) None seen [HPF] 0-[address] [facility] Urea nitrogen [Mass/volume] in Serum or PlasmaOrdered By: Zac Muniz on 05-31-2023 Urea nitrogen [Mass/Vol] 28 mg/dL 7-[address] [facility] Urine bacteria detection by automated methodOrdered By: Christine Sanchez on 05-31-2023 Bacteria Auto Ql (U) None seen None Seen [facility] Urine clarity by refractomet ry automatedOrdered By: Christine Sanchez on 05-31-2023 Clarity Refractometry automated (U) Clear Clear [facility] Urine glucose measurement by automated test strip (mass/volume)Ordered By: Christine Sanchez on 05-31-2023 Glucose Auto test strip (U) [Mass/Vol] Normal mg/dL Normal [facility] Urine hemoglobin detection b y automated test stripOrdered By: Christine Sanchez on 05-31-2023 Hemoglobin Auto test strip Ql (U) Negative Negative [facility] Urine leukocyte esterase det ection by automated test stripOrdered By: Christine Sanchez on 05-31-2023 Leukocyte esterase Auto test strip Ql (U) Negative Negative [facility] Urobilinogen Auto test strip (U) [Mass/Vol]Ordered By: Christine Sanchez on 05-31-2023 Urobilinogen (U) [Mass/Vol] Normal mg/dL Normal [facility] WBC Auto (Bld) [#/Vol]Ordere d By: Christine Sanchez on 05-31-2023 WBC (Bld) [#/Vol] 5.5 10*3/uL 4.1-10.5 [facility] [place] pH Auto test strip (U)Ordere d By: Christine Sanchez on 05-31-2023 pH (U) 5.5 [pH] 5.0-9.[address] [facility] Ammonium urate crystals dete ction in stone by infrared spectroscopyOrdered By: Zac Muniz on 05-18-2023 Ammonium urate crystals Infrared spectroscopy Ql (Stone) N/A [facility] Calcium bilirubinate measure mentOrdered By: Zac Muniz on 05-18-2023 Calcium bilirubinate (Stone) [Mass fraction] N/A [facility] Calcium carbonate measuremen tOrdered By: Zac Muniz on 05-18-2023 Calcium carbonate (Stone) [Mass fraction] N/A [facility] Calcium hydrogen phosphate d ihydrate/Total in StoneOrdered By: Zac Muniz on 05-18-2023 Calcium hydrogen phosphate dihydrate (Stone) [Mass fraction] N/A [facility] Calcium oxalate dihydrate cr ystals detection in stone by infrared spectroscopyOrdered By: Zac Muniz on 05-18-2023 Calcium oxalate dihydrate crystals Infrared spectroscopy Ql (Stone) N/A [facility] Calcium oxalate monohydrate/ Total in StoneOrdered By: Zac Muniz on 05-18-2023 Calcium oxalate monohydrate (Stone) [Mass fraction] N/A [facility] Calcium phosphate measuremen tOrdered By: Zac Muniz on 05-18-2023 Calcium phosphate (Stone) [Mass fraction] N/A [facility] Calculus analysis interpreta tion in stoneOrdered By: Zac Muniz on 05-18-2023 Calculus analysis [Interp] N/A [facility] Calculus analysis [Interp] See comment . [facility] Comment on above: Physician questions regarding Calculi Analysis contactLafene Health CenterCorp at: [phone]. Calculi report will follow via computer, mail or courierdelivery. Calculus analysis with calcu silva photography interpretation in stoneOrdered By: Zac Muniz on 05-18-2023 Calculus analysis with calculus photography [Interp] See comment . [facility] Comment on above: Photograph will foll ow under a separate cover Cellular material measuremen t in stone by estimated (mass/mass)Ordered By: Zac Muniz on 05-18-2023 Cellular material Est (Stone) [Mass/Mass] N/A [facility] Cholesterol/Total in StoneOr dered By: Zac Muniz on 05-18-2023 Cholesterol (Stone) [Mass fraction] N/A [facility] Composition of stoneOrdered By: Zac Muniz on 05-18-2023 Composition Nom (Stone) See comment . [facility] Comment on above: Percentage (Represen ts the % composition) Cystine measurementOrdered B y: Zac Muniz on 05-18-2023 Cystine (Unsp spec) [Moles/Vol] N/A [facility] Determination of color of ca lculusOrdered By: Zac Muniz on 05-18-2023 Color (Stone) Alexander . [facility] Hydroxyapatite [Energy Diffe rence] in 24 hour UrineOrdered By: Zac Muniz on 05-18-2023 Hydroxyapatite (24H U) [Energy diff] N/A [facility] Measurement of proportion of calculus composed of dried blood (mass/mass)Ordered By: Zac Muniz on 05-18-2023 Blood.dried (Stone) [Mass fraction] N/A [facility] Newberyite/Total in StoneOrd ered By: Zac Muniz on 05-18-2023 Newberyite (Stone) [Mass fraction] N/A [facility] No Panel InformationOrdered By: Zac Muniz on 05-18-2023 Stone 2,8 Dihydroxyadenine N/A [facility] Stone Analysis Disclaimer See comment . [facility] Comment on above: This test was develo ped and its performance characteristicsdetermined by [employer]. It has not been cleared or approvedby the Food and Drug Administration.Performed at: [facility] [id number] [id number] Director: Jimmy Warner PhD, Phone: [phone] [place] Bilirubinate N/A [facility] [place] Calcium Palmitate N/A [facility] [place] Calcium Stearate N/A [facility] [place] Carbonate Apatite N/A [facility] Stone Drug or Metabolite N/A [facility] Stone Other Constituent N/A [facility] Stone Xanthine N/A [facility] Size [Entitic volume] of Sto neOrdered By: Zac Muniz on 05-18-2023 Size (Stone) [Entitic vol] 4x4 mm . [facility] Comment on above: Multiple pieces rece ived. Dimensions of the largest piecereported. Sodium urate crystals detect ion in stone by infrared spectroscopyOrdered By: Zac Muniz on 05-18-2023 Sodium urate crystals Infrared spectroscopy Ql (Stone) N/A [facility] Specimen source subject [Typ e]Ordered By: Zac Muniz on 05-18-2023 Specimen source subject Nom See comment . [facility] Comment on above: Not provided Triamterene measurement in c alculusOrdered By: Zac Muniz on 05-18-2023 Triamterene (Stone) [Mass fraction] N/A [facility] Triple phosphate/Total in St oneOrdered By: Zac Muniz on 05-18-2023 Triple phosphate (Stone) [Mass fraction] N/A [facility] Uric acid dihydrate crystals detection in stone by infrared spectroscopyOrdered By: Zac Muniz on 05-18-2023 Urate dihydrate crystals Infrared spectroscopy Ql (Stone) 100 % . [facility] Urate dihydrate crystals Infrared spectroscopy Ql (Stone) N/A [facility] Tobacco Screening.on 023 Adult depression screening assessment No [facility] [employer] DO Work Phone: Fall risk assessment a) No falls within the last year [facility] [employer]anda [employer] DO Work Phone: Tobacco use status CPHS b) No [facility] 250 DO Work Phone: Automated erythrocytes count in urine sediment (number/area)Ordered By: Romel Orta on 05-07-2023 RBC Auto (Urine sed) [#/Area] 1-2 [HPF] 0-[address] [facility] Automated leukocytes count i n urine sediment (number/area)Ordered By: Romel Orta on 05-07-2023 WBC Auto (Urine sed) [#/Area] 3-4 [HPF] 0-[address] [facility] Basophils Auto (Bld) [#/Vol] Ordered By: Romel Orta on 05-07-2023 Basophils (Bld) [#/Vol] 0.1 10*3/uL 0.0-0.[address] [facility] Basophils/100 WBC Auto (Bld) Ordered By: Romel Orta on 05-07-2023 Basophils/100 WBC (Bld) 0.6 % . [facility] Bilirubin Test strip Ql (U)O rdered By: Romel Orta on 05-07-2023 Bilirubin Ql (U) Negative Negative [facility] Calcium [Mass/volume] in Ser um or PlasmaOrdered By: Romel Orta on 05-07-2023 Calcium [Mass/Vol] 8.8 mg/dL 8.6-10.3 [facility] [place] Carbon dioxide, total [Moles /volume] in Serum or PlasmaOrdered By: Romel Orta on 05-07-2023 CO2 [Moles/Vol] 20.8 mmol/L 21.0-31.0 [facility] Chloride [Moles/volume] in S ace or PlasmaOrdered By: Romel Orta on 05-07-2023 Chloride [Moles/Vol] 105 mmol/L 98-107 [facility] Color Auto (U)Ordered By: Bridgett Orta on 05-07-2023 Color (U) Yellow Yellow [facility] Creatinine [Mass/volume] in Serum or PlasmaOrdered By: Romel Orta on 05-07-2023 Creatinine [Mass/Vol] 1.94 mg/dL 0.70-1.30 [facility] Eosinophils Auto (Bld) [#/Vo l]Ordered By: Romel Orta on 05-07-2023 Eosinophils (Bld) [#/Vol] 0.1 10*3/uL 0.0-0.[address] [facility] Eosinophils/100 WBC Auto (Bl d)Ordered By: Romel Orta on 05-07-2023 Eosinophils/100 WBC (Bld) 1.1 % . [facility] Erythrocyte distribution wid th Auto (RBC) [Ratio]Ordered By: Romel Orta on 05-07-2023 Erythrocyte distribution width (RBC) [Ratio] 14.3 % 12.0-14.[address] [facility] Glucose [Mass/volume] in Ser um or PlasmaOrdered By: Romel Orta on 05-07-2023 Glucose [Mass/Vol] 98 mg/dL 70-100 [facility] [place] Comment on above: ADA recommended refe rence rangeRandom Glucose Reference Range is dependent on time and content of last meal. Glucose of more than 200 mg/dL in a nonstressed, ambulatory subject supports the diagnosis of Diabetes Mellitus. Hematocrit Auto (Bld) [Volum e fraction]Ordered By: Romel Orta on 05-07-2023 Hematocrit (Bld) [Volume fraction] 38.9 % 38.8-50.[address] [facility] Hemoglobin [Mass/volume] in BloodOrdered By: Romel Orta on 05-07-2023 Hemoglobin (Bld) [Mass/Vol] 13.7 g/dL 13.0-17.[address] [facility] Ketones Auto test strip (U) [Mass/Vol]Ordered By: Romel Orta on 05-07-2023 Ketones (U) [Mass/Vol] Trace Negative [facility] - UrinalysisOrder ed By: Romel Orta on 05-07-2023 Hyaline casts LM Ql (Urine sed) 0-8 [LPF] 0-[address] [facility] Leukocytes [#/volume] correc nat for nucleated erythrocytes in Blood by Automated counOrdered By: Romel Orta on 05-07-2023 WBC corrected for nucl RBC Auto (Bld) [#/Vol] 9.9 10*3/uL 4.1-10.[address] [facility] Lymphocytes Auto (Bld) [#/Vo l]Ordered By: Romel Orta on 05-07-2023 Lymphocytes (Bld) [#/Vol] 0.6 10*3/uL 1.00-4.[address] [facility] Lymphocytes/100 WBC Auto (Bl d)Ordered By: Romel Orta on 05-07-2023 Lymphocytes/100 WBC (Bld) 6.2 % . [facility] MCH Auto (RBC) [Entitic mass ]Ordered By: Romel Orta on 05-07-2023 MCH (RBC) [Entitic mass] 31.3 pg 27.5-35.[address] [facility] MCHC Auto (RBC) [Mass/Vol]Or dered By: Romel Orta on 05-07-2023 MCHC (RBC) [Mass/Vol] 35.2 g/dL 32.5-35.6 [facility] MCV Auto (RBC) [Entitic vol] Ordered By: Romel Orta on 05-07-2023 MCV (RBC) [Entitic vol] 88.9 fL 83.5-[address] [facility] Monocyte distribution width [Entitic volume] in Blood by AutomatedOrdered By: Romel Orta on 05-07-2023 Monocyte distribution width Auto (Bld) [Entitic vol] 22.82 % 0.00-20.[address] [facility] Comment on above: For adults in ED, MD W > 20.0 may be associated with a higher risk of sepsis during the first 12 hrs of hospital admission Monocytes Auto (Bld) [#/Vol] Ordered By: Romel Orta on 05-07-2023 Monocytes (Bld) [#/Vol] 1.5 10*3/uL 0.0-0.[address] [facility] Monocytes/100 WBC Auto (Bld) Ordered By: Romel Orta on 05-07-2023 Monocytes/100 WBC (Bld) 15.4 % . [facility] Neutrophils Auto (Bld) [#/Vo l]Ordered By: Romel Orta on 05-07-2023 Neutrophils (Bld) [#/Vol] 7.6 10*3/uL 1.8-7.[address] [facility] Neutrophils/100 WBC Auto (Bl d)Ordered By: Romel Orta on 05-07-2023 Neutrophils/100 WBC (Bld) 76.7 % . [facility] Nitrite Test strip Ql (U)Ord ered By: Romel Orta on 05-07-2023 Nitrite Ql (U) Negative Negative [facility] No Panel InformationOrdered By: Romel Orta on 05-07-2023 Estimated GFR (CKD-EPI) 37.476 mL/Min [facility] Creatinine Clearance (Chem 41.[address] [facility] Nucleated erythrocytes [Pres ence] in Blood by Automated countOrdered By: Romel Orta on 05-07-2023 Nucleated RBC Auto Ql (Bld) 0.1 /100{WBC} 0-0.[address] [facility] Platelet mean volume Auto (B ld) [Entitic vol]Ordered By: Rmoel Orta on 05-07-2023 Platelet mean volume (Bld) [Entitic vol] 8.3 fL 6.6-10.[address] [facility] Platelets Auto (Bld) [#/Vol] Ordered By: Romel Orta on 05-07-2023 Platelets (Bld) [#/Vol] 193 10*3/uL 150-[address] [facility] Potassium [Moles/volume] in Serum or PlasmaOrdered By: Romel Orta on 05-07-2023 Potassium [Moles/Vol] 4.2 mmol/L 3.5-5.1 [facility] Protein Auto test strip (U) [Mass/Vol]Ordered By: Romel Orta on 05-07-2023 Protein (U) [Mass/Vol] Negative Negative [facility] RBC Auto (Bld) [#/Vol]Ordere d By: Romel Orta on 05-07-2023 RBC (Bld) [#/Vol] 4.38 10*6/uL 3.90-5.60 [facility] Serum or plasma anion gap de terminationOrdered By: Romel Orta on 05-07-2023 Anion gap [Moles/Vol] 15.4 mmol/L 6.0-15.0 [facility] Sodium [Moles/volume] in Ser um or PlasmaOrdered By: Romel Orta on 05-07-2023 Sodium [Moles/Vol] 137 mmol/L 136-145 [facility] Specific gravity Auto test s trip (U) [Rel density]Ordered By: Romel Orta on 05-07-2023 Specific gravity (U) [Rel density] 1.028 1.001-1.[address] [facility] Squamous epithelial cells de tection in urine sediment by light microscopyOrdered By: Romel Orta on 05-07-2023 Epithelial cells.squamous LM Ql (Urine sed) 0-1 [HPF] 0-[address] [facility] Urea nitrogen [Mass/volume] in Serum or PlasmaOrdered By: Romel Orta on 05-07-2023 Urea nitrogen [Mass/Vol] 34 mg/dL 7-[address] [facility] Urine bacteria detection by automated methodOrdered By: Romel Orta on 05-07-2023 Bacteria Auto Ql (U) None seen None Seen [facility] Urine clarity by refractomet ry automatedOrdered By: Romel Orta on 05-07-2023 Clarity Refractometry automated (U) Cloudy Clear [facility] Urine glucose measurement by automated test strip (mass/volume)Ordered By: Romel Orta on 05-07-2023 Glucose Auto test strip (U) [Mass/Vol] Normal mg/dL Normal [facility] Urine hemoglobin detection b y automated test stripOrdered By: Romel Orta on 05-07-2023 Hemoglobin Auto test strip Ql (U) Negative Negative [facility] Urine leukocyte esterase det ection by automated test stripOrdered By: Romel Orta on 05-07-2023 Leukocyte esterase Auto test strip Ql (U) Negative Negative [facility] Urine sediment crystal ident ification by light microscopyOrdered By: Romel Orta on 05-07-2023 Crystals LM Nom (Urine sed) N/A [facility] Urobilinogen Auto test strip (U) [Mass/Vol]Ordered By: Romel Orta on 05-07-2023 Urobilinogen (U) [Mass/Vol] Normal mg/dL Normal [facility] WBC Auto (Bld) [#/Vol]Ordere d By: Romel Orta on 05-07-2023 WBC (Bld) [#/Vol] 9.9 10*3/uL 4.1-10.5 [facility] pH Auto test strip (U)Ordere d By: Romel Orta on 05-07-2023 pH (U) 5.0 [pH] 5.0-9.[address] [facility] Alanine aminotransferase [En zymatic activity/volume] in Serum or PlasmaOrdered By: Edenilson Reinoso on 05-03-2023 ALT [Catalytic activity/Vol] 44 U/L 7-[address] [facility] Albumin [Mass/volume] in Ser um or Plasma by Bromocresol green (BCG) dye binding methoOrdered By: Edenilson Reinoso on 05-03-2023 Albumin BCG dye [Mass/Vol] 4.4 g/dL 3.5-5.[address] [facility] Alkaline phosphatase [Enzyma tic activity/volume] in Serum or PlasmaOrdered By: Edenilson Reinoso on 05-03-2023 ALP [Catalytic activity/Vol] 79 U/L 34-[address] [facility] Aspartate aminotransferase [ Enzymatic activity/volume] in Serum or PlasmaOrdered By: Edenilson Reinoso on 05-03-2023 AST [Catalytic activity/Vol] 28 U/L 13-[address] [facility] Automated erythrocytes count in urine sediment (number/area)Ordered By: Edenilson Reinoso on 05-03-2023 RBC Auto (Urine sed) [#/Area] 10-19 [HPF] 0-[address] [facility] Automated leukocytes count i n urine sediment (number/area)Ordered By: Edenilson Reinoso on 05-03-2023 WBC Auto (Urine sed) [#/Area] 0-1 [HPF] 0-[address] [facility] Basophils Auto (Bld) [#/Vol] Ordered By: Edenilson Reinoso on 05-03-2023 Basophils (Bld) [#/Vol] 0.0 10*3/uL 0.0-0.[address] [facility] Basophils/100 WBC Auto (Bld) Ordered By: Edenilson Reinoso on 05-03-2023 Basophils/100 WBC (Bld) 0.3 % . [facility] Bilirubin Test strip Ql (U)O rdered By: Edenilson Reinoso on 05-03-2023 Bilirubin Ql (U) Negative Negative [facility] Bilirubin.direct [Mass/volum e] in Serum or PlasmaOrdered By: Edenilson Reinoso on 05-03-2023 Bilirubin.direct [Mass/Vol] 0.20 mg/dL 0.03-0.[address] [facility] Bilirubin.total [Mass/volume ] in Serum or PlasmaOrdered By: Edenilson Reinoso on 05-03-2023 Bilirubin [Mass/Vol] 1.0 mg/dL 0.3-1.0 [facility] Calcium [Mass/volume] in Ser um or PlasmaOrdered By: Edenilson Reinoso on 05-03-2023 Calcium [Mass/Vol] 9.2 mg/dL 8.6-10.3 [facility] Carbon dioxide, total [Moles /volume] in Serum or PlasmaOrdered By: Edenilson Reinoso on 05-03-2023 CO2 [Moles/Vol] 21.3 mmol/L 21.0-31.0 [facility] Chloride [Moles/volume] in S ace or PlasmaOrdered By: Edenilson Reinoso on 05-03-2023 Chloride [Moles/Vol] 105 mmol/L 98-107 [facility] Color Auto (U)Ordered By: Chen Reinoso on 05-03-2023 Color (U) Yellow Yellow [facility] Creatinine [Mass/volume] in Serum or PlasmaOrdered By: Edenilson Reinoso on 05-03-2023 Creatinine [Mass/Vol] 1.51 mg/dL 0.70-1.30 [facility] Eosinophils Auto (Bld) [#/Vo l]Ordered By: Edenilson Reinoso on 05-03-2023 Eosinophils (Bld) [#/Vol] 0.0 10*3/uL 0.0-0.[address] [facility] Eosinophils/100 WBC Auto (Bl d)Ordered By: Edenilson Reinoso on 05-03-2023 Eosinophils/100 WBC (Bld) 0.3 % . [facility] Erythrocyte distribution wid th Auto (RBC) [Ratio]Ordered By: Edenilson Reinoso on 05-03-2023 Erythrocyte distribution width (RBC) [Ratio] 14.9 % 12.0-14.[address] [facility] Globulin Calc (S) [Mass/Vol] Ordered By: Edenilson Reinoso on 05-03-2023 Globulin (S) [Mass/Vol] 2.3 g/dL [facility] Glucose [Mass/volume] in Ser um or PlasmaOrdered By: Edenilson Reinoso on 05-03-2023 Glucose [Mass/Vol] 107 mg/dL 70-100 [facility] Comment on above: ADA recommended refe rence rangeRandom Glucose Reference Range is dependent on time and content of last meal. Glucose of more than 200 mg/dL in a nonstressed, ambulatory subject supports the diagnosis of Diabetes Mellitus. Hematocrit Auto (Bld) [Volum e fraction]Ordered By: Edenilson Reinoso on 05-03-2023 Hematocrit (Bld) [Volume fraction] 44.5 % 38.8-50.[address] [facility] Hemoglobin [Mass/volume] in BloodOrdered By: Edenilson Reinoso on 05-03-2023 Hemoglobin (Bld) [Mass/Vol] 15.7 g/dL 13.0-17.[address] [facility] Ketones Auto test strip (U) [Mass/Vol]Ordered By: Edenilson Reinoso on 05-03-2023 Ketones (U) [Mass/Vol] Trace Negative [facility] - UrinalysisOrder ed By: Edenilson Reinoso on 05-03-2023 Hyaline casts LM Ql (Urine sed) 0-8 [LPF] 0-[address] [facility] Leukocytes [#/volume] correc nat for nucleated erythrocytes in Blood by Automated counOrdered By: Edenilson Reinoso on 05-03-2023 WBC corrected for nucl RBC Auto (Bld) [#/Vol] 13.4 10*3/uL 4.1-10.[address] [facility] Lipase [Enzymatic activity/v olume] in Serum or PlasmaOrdered By: Edenilson Reinoso on 05-03-2023 Lipase [Catalytic activity/Vol] 28.0 U/L 11.0-82.[address] [facility] Lymphocytes Auto (Bld) [#/Vo l]Ordered By: Edenilson Reinoso on 05-03-2023 Lymphocytes (Bld) [#/Vol] 0.6 10*3/uL 1.00-4.[address] [facility] Lymphocytes/100 WBC Auto (Bl d)Ordered By: Edenilson Reinoso on 05-03-2023 Lymphocytes/100 WBC (Bld) 4.3 % . [facility] MCH Auto (RBC) [Entitic mass ]Ordered By: Edenilson Reinoso on 05-03-2023 MCH (RBC) [Entitic mass] 31.1 pg 27.5-35.[address] [facility] MCHC Auto (RBC) [Mass/Vol]Or dered By: Edenilson Reinoso on 05-03-2023 MCHC (RBC) [Mass/Vol] 35.4 g/dL 32.5-35.6 [facility] MCV Auto (RBC) [Entitic vol] Ordered By: Edenilson Reinoso on 05-03-2023 MCV (RBC) [Entitic vol] 87.9 fL 83.5-[address] [facility] Monocyte distribution width [Entitic volume] in Blood by AutomatedOrdered By: Edenilson Reinoso on 05-03-2023 Monocyte distribution width Auto (Bld) [Entitic vol] 24.56 % 0.00-20.[address] [facility] Comment on above: For adults in ED, MD W > 20.0 may be associated with a higher risk of sepsis during the first 12 hrs of hospital admission Monocytes Auto (Bld) [#/Vol] Ordered By: Edenilson Reinoso on 05-03-2023 Monocytes (Bld) [#/Vol] 1.5 10*3/uL 0.0-0.[address] [facility] Monocytes/100 WBC Auto (Bld) Ordered By: Edenilson Reinoso on 05-03-2023 Monocytes/100 WBC (Bld) 11.0 % . [facility] Neutrophils Auto (Bld) [#/Vo l]Ordered By: Edenilson Reinoso on 05-03-2023 Neutrophils (Bld) [#/Vol] 11.3 10*3/uL 1.8-7.[address] [facility] Neutrophils/100 WBC Auto (Bl d)Ordered By: Edenilson Reinoso on 05-03-2023 Neutrophils/100 WBC (Bld) 84.1 % . [facility] Nitrite Test strip Ql (U)Ord ered By: Edenilson Reinoso on 05-03-2023 Nitrite Ql (U) Negative Negative [facility] No Panel InformationOrdered By: Edenilson Reinoso on 05-03-2023 Estimated GFR (CKD-EPI) 50.623 mL/Min [facility] Creatinine Clearance (Chem 54.[address] [facility] Nucleated erythrocytes [Pres ence] in Blood by Automated countOrdered By: Edenilson Reinoso on 05-03-2023 Nucleated RBC Auto Ql (Bld) 0.1 /100{WBC} 0-0.[address] [facility] Platelet mean volume Auto (B ld) [Entitic vol]Ordered By: Edenilson Reinoso on 05-03-2023 Platelet mean volume (Bld) [Entitic vol] 8.4 fL 6.6-10.[address] [facility] Platelets Auto (Bld) [#/Vol] Ordered By: Edenilson Reinoso on 05-03-2023 Platelets (Bld) [#/Vol] 185 10*3/uL 150-[address] [facility] Potassium [Moles/volume] in Serum or PlasmaOrdered By: Edenilson Reinoso on 05-03-2023 Potassium [Moles/Vol] 4.1 mmol/L 3.5-5.1 [facility] Protein Auto test strip (U) [Mass/Vol]Ordered By: Edenilson Reinoso on 05-03-2023 Protein (U) [Mass/Vol] Trace mg/dL Negative F [facility] Protein [Mass/volume] in Ser um or PlasmaOrdered By: Edenilson Reinoso on 05-03-2023 Protein [Mass/Vol] 6.7 g/dL 6.4-8.9 [facility] RBC Auto (Bld) [#/Vol]Ordere d By: Edenilson Reinoso on 05-03-2023 RBC (Bld) [#/Vol] 5.06 10*6/uL 3.90-5.60 [facility] Serum or plasma albumin/glob ulin mass ratioOrdered By: Edenilson Reinoso on 05-03-2023 Albumin/Globulin [Mass ratio] 1.9 {ratio} [facility] Serum or plasma anion gap de terminationOrdered By: Edenilson Reinoso on 05-03-2023 Anion gap [Moles/Vol] 13.8 mmol/L 6.0-15.0 [facility] Serum or plasma non-glucuron idated bilirubin measurement (mass/volume)Ordered By: Edenilson Reinoso on 05-03-2023 Bilirubin.indirect [Mass/Vol] 0.8 mg/dL [facility] Sodium [Moles/volume] in Ser um or PlasmaOrdered By: Edenilson Reinoso on 05-03-2023 Sodium [Moles/Vol] 136 mmol/L 136-145 [facility] Specific gravity Auto test s trip (U) [Rel density]Ordered By: Edenilson Reinoso on 05-03-2023 Specific gravity (U) [Rel density] 1.024 1.001-1.[address] [facility] Squamous epithelial cells de tection in urine sediment by light microscopyOrdered By: Edenilson Reinoso on 05-03-2023 Epithelial cells.squamous LM Ql (Urine sed) None seen [HPF] 0-[address] [facility] Urea nitrogen [Mass/volume] in Serum or PlasmaOrdered By: Edenilson Reinoso on 05-03-2023 Urea nitrogen [Mass/Vol] 22 mg/dL 7-[address] [facility] Urine bacteria detection by automated methodOrdered By: Edenilson Rienoso on 05-03-2023 Bacteria Auto Ql (U) None seen None Seen [facility] Urine clarity by refractomet ry automatedOrdered By: Edenilson Reinoso on 05-03-2023 Clarity Refractometry automated (U) Clear Clear [facility] Urine glucose measurement by automated test strip (mass/volume)Ordered By: Edenilson Reinoso on 05-03-2023 Glucose Auto test strip (U) [Mass/Vol] Normal mg/dL Normal [facility] Urine hemoglobin detection b y automated test stripOrdered By: Edenilson Reinoso on 05-03-2023 Hemoglobin Auto test strip Ql (U) 1+ Negative [facility] Urine leukocyte esterase det ection by automated test stripOrdered By: Edenilson Reinoso on 05-03-2023 Leukocyte esterase Auto test strip Ql (U) 1+ Negative [facility] Urobilinogen Auto test strip (U) [Mass/Vol]Ordered By: Edenilson Reinoso on 05-03-2023 Urobilinogen (U) [Mass/Vol] Normal mg/dL Normal [facility] WBC Auto (Bld) [#/Vol]Ordere d By: Edenilson Reinoso on 05-03-2023 WBC (Bld) [#/Vol] 13.4 10*3/uL 4.1-10.5 [facility] pH Auto test strip (U)Ordere d By: Edenilson Reinoso on 05-03-2023 pH (U) 5.5 [pH] 5.0-9.[address] [facility] Alanine aminotransferase [En zymatic activity/volume] in Serum or PlasmaOrdered By: Sascha Sutton on 04-08-2023 ALT [Catalytic activity/Vol] 33 U/L 7-[address] [facility] Albumin [Mass/volume] in Ser um or Plasma by Bromocresol green (BCG) dye binding methoOrdered By: Sascha Sutton on 04-08-2023 Albumin BCG dye [Mass/Vol] 4.0 g/dL 3.5-5.[address] [facility] Alkaline phosphatase [Enzyma tic activity/volume] in Serum or PlasmaOrdered By: Sascha Sutton on 04-08-2023 ALP [Catalytic activity/Vol] 82 U/L 34-[address] [facility] Aspartate aminotransferase [ Enzymatic activity/volume] in Serum or PlasmaOrdered By: Sascha Sutton on 04-08-2023 AST [Catalytic activity/Vol] 19 U/L 13-[address] [facility] Bilirubin.total [Mass/volume ] in Serum or PlasmaOrdered By: Sascha Sutton on 04-08-2023 Bilirubin [Mass/Vol] 0.8 mg/dL 0.3-1.0 [facility] Calcium [Mass/volume] in Ser um or PlasmaOrdered By: Sascha Sutton on 04-08-2023 Calcium [Mass/Vol] 8.8 mg/dL 8.6-10.3 [facility] Carbon dioxide, total [Moles /volume] in Serum or PlasmaOrdered By: Sascha Sutton on 04-08-2023 CO2 [Moles/Vol] 28.1 mmol/L 21.0-31.0 [facility] Chloride [Moles/volume] in S ace or PlasmaOrdered By: Sascha Sutton on 04-08-2023 Chloride [Moles/Vol] 107 mmol/L 98-107 [facility] Cholesterol [Mass/volume] in Serum or PlasmaOrdered By: Sascha Sutton on 04-08-2023 Cholesterol [Mass/Vol] 119 mg/dL 140-200 [facility] Comment on above: Chol less than 200 m g/dl low riskChol 201-239 mg/dl borderline riskChol 240 mg/dl and greater high risk Cholesterol in LDL Calc [Mas s/Vol]Ordered By: Sascha Sutton on 04-08-2023 Cholesterol in LDL [Mass/Vol] 55 mg/dL 0-[address] [facility] Comment on above: LDL ATP III CLASSIFI CATIONLDL less than 100 mg/dL OptimalLDL 100-129 mg/dL Near or above optimalLDL 130-159 mg/dL Borderline highLDL 160-189 mg/dL HighLDL greater than 189 mg/dL Very high Cholesterol in VLDL Calc [Ma ss/Vol]Ordered By: Sascha Sutton on 04-08-2023 Cholesterol in VLDL [Mass/Vol] 25 mg/dL [facility] Creatinine [Mass/volume] in Serum or PlasmaOrdered By: Sascha Sutton 04-08-2023 Creatinine [Mass/Vol] 0.85 mg/dL 0.70-1.30 [facility] Globulin Calc (S) [Mass/Vol] Ordered By: Sascha Sutton on 04-08-2023 Globulin (S) [Mass/Vol] 2.1 g/dL [facility] Glucose [Mass/volume] in Ser um or PlasmaOrdered By: Sascha Sutton on 04-08-2023 Glucose [Mass/Vol] 85 mg/dL 70-100 [facility] Comment on above: ADA recommended refe rence rangeRandom Glucose Reference Range is dependent on time and content of last meal. Glucose of more than 200 mg/dL in a nonstressed, ambulatory subject supports the diagnosis of Diabetes Mellitus. No Panel InformationOrdered By: Sascha Sutton on 04-08-2023 Estimated GFR (CKD-EPI) > 60.0 mL/Min [facility] Creatinine Clearance (Chem N/A [facility] Potassium [Moles/volume] in Serum or PlasmaOrdered By: Sascha Sutton 04-08-2023 Potassium [Moles/Vol] 4.1 mmol/L 3.5-5.1 [facility] Prostate specific Ag [Mass/v olume] in Serum or PlasmaOrdered By: Sascha Sutton 04-08-2023 Prostate specific Ag [Mass/Vol] 1.770 ng/mL 0.000-4.[address] [facility] Protein [Mass/volume] in Ser um or PlasmaOrdered By: Sascha Sutton 04-08-2023 Protein [Mass/Vol] 6.1 g/dL 6.4-8.9 [facility] Serum or plasma albumin/glob ulin mass ratioOrdered By: Sascha Sutton on 04-08-2023 Albumin/Globulin [Mass ratio] 1.9 {ratio} [facility] Serum or plasma anion gap de terminationOrdered By: Sascha Sutton 04-08-2023 Anion gap [Moles/Vol] 9.0 mmol/L 6.0-15.0 [facility] Serum or plasma high density lipoprotein (HDL) cholesterol measurementOrdered By: Sascha Sutton 04-08-2023 Cholesterol in HDL [Mass/Vol] 39 mg/dL 29-71 [facility] Comment on above: HDL CHOL ATP-III CLA SSIFICATION Cardiovascular RiskHDL > or equal to 60 mg/dL LOWHDL < 40 mg/dL HIGH Serum or plasma total choles terol/high density lipoprotein (HDL) cholesterol mass ratOrdered By: Sascha Sutton on 04-08-2023 Cholesterol.total/Chol esterol in HDL [Mass ratio] 3.1 {ratio} <5.[address] [facility] Sodium [Moles/volume] in Ser um or PlasmaOrdered By: Sascha Sutton on 04-08-2023 Sodium [Moles/Vol] 140 mmol/L 136-145 [facility] Triglyceride [Mass/volume] i n Serum or PlasmaOrdered By: Sascha Sutton on 04-08-2023 Triglyceride [Mass/Vol] 125 mg/dL 0-[address] [facility] Comment on above: TRIG ATP III CLASSIF ICATIONTRIG less than 150 mg/dL NormalTRIG 150-199 mg/dL Borderline highTRIG 200-500 mg/dL High TRIG greater than 500 mg/dL Very highStandard traceable to the Center for Disease Conrtrol and Prevention (CDC) test method. Urea nitrogen [Mass/volume] in Serum or PlasmaOrdered By: Sascha Sutton on 04-08-2023 Urea nitrogen [Mass/Vol] 17 mg/dL 7-[address] [facility] Activated partial thrombopla stin time (aPTT) in platelet poor plasma by coagulation aOrdered By: Melanie Trujillo on 03-31-2023 aPTT Coag (PPP) [Time] 39.0 s 25.1-36.5 [facility] Basophils Auto (Bld) [#/Vol] Ordered By: Melanie Trujillo on 03-31-2023 Basophils (Bld) [#/Vol] 0.0 10*3/uL 0.0-0.[address] [facility] Basophils/100 WBC Auto (Bld) Ordered By: Melanie Trujillo on 03-31-2023 Basophils/100 WBC (Bld) 0.6 % . [facility] Carbon dioxide, total [Moles /volume] in Serum or PlasmaOrdered By: Melanie Trujillo on 03-31-2023 CO2 [Moles/Vol] 26.4 mmol/L 21.0-31.0 [facility] Chloride [Moles/volume] in S ace or PlasmaOrdered By: Melanie Trujillo on 03-31-2023 Chloride [Moles/Vol] 106 mmol/L 98-107 [facility] Cholesterol [Mass/volume] in Serum or PlasmaOrdered By: Melanie Trujillo on 03-31-2023 Cholesterol [Mass/Vol] 132 mg/dL 140-200 [facility] Comment on above: Chol less than 200 m g/dl low riskChol 201-239 mg/dl borderline riskChol 240 mg/dl and greater high risk Cholesterol in LDL Calc [Mas s/Vol]Ordered By: Melanie Trujillo on 03-31-2023 Cholesterol in LDL [Mass/Vol] 71 mg/dL 0-[address] [facility] Comment on above: LDL ATP III CLASSIFI CATIONLDL less than 100 mg/dL OptimalLDL 100-129 mg/dL Near or above optimalLDL 130-159 mg/dL Borderline highLDL 160-189 mg/dL HighLDL greater than 189 mg/dL Very high Cholesterol in VLDL Calc [Ma ss/Vol]Ordered By: Melanie Trujillo on 03-31-2023 Cholesterol in VLDL [Mass/Vol] 21 mg/dL [facility] Creatinine [Mass/volume] in Serum or PlasmaOrdered By: Melanie Trujillo on 03-31-2023 Creatinine [Mass/Vol] 0.88 mg/dL 0.70-1.30 [facility] Eosinophils Auto (Bld) [#/Vo l]Ordered By: Melanie Trujillo on 03-31-2023 Eosinophils (Bld) [#/Vol] 0.1 10*3/uL 0.0-0.[address] [facility] Eosinophils/100 WBC Auto (Bl d)Ordered By: Melanie Trujillo on 03-31-2023 Eosinophils/100 WBC (Bld) 1.6 % . [facility] Erythrocyte distribution wid th Auto (RBC) [Ratio]Ordered By: eMlanie Trujillo on 03-31-2023 Erythrocyte distribution width (RBC) [Ratio] 14.5 % 12.0-14.[address] [facility] Hematocrit Auto (Bld) [Volum e fraction]Ordered By: Melanie Trujillo on 03-31-2023 Hematocrit (Bld) [Volume fraction] 46.7 % 38.8-50.[address] [facility] Hemoglobin [Mass/volume] in BloodOrdered By: Melanie Trujillo on 03-31-2023 Hemoglobin (Bld) [Mass/Vol] 16.0 g/dL 13.0-17.[address] [facility] Laboratory - Chemistry and C hemistry - challengeon 03-31-2023 Cholesterol [Mass/Vol] 132\S\132 below low threshold 140-200 [facility] [employer] DO Work Phone: Comment on above: Chol less than 200 m g/dl low risk Chol 201-239 mg/dl borderline risk Chol 240 mg/dl and greater high risk Cholesterol in LDL [Mass/Vol] 71\S\71 Normal 0-100 [facility] [employer] [address] DO Work Phone: Comment on above: LDL ATP III CLASSIFI CATION LDL less than 100 mg/dL Optimal LDL 100-129 mg/dL Near or above optimal LDL 130-159 mg/dL Borderline high LDL 160-189 mg/dL High LDL greater than 189 mg/dL Very high Laboratory - CoagulationOrde red By: Melanie Trujillo on 03-31-2023 PT Coag (PPP) [Time] 12.3 s 9.0-12.9 [facility] Leukocytes [#/volume] correc nat for nucleated erythrocytes in Blood by Automated counOrdered By: Melanie Trujillo on 03-31-2023 WBC corrected for nucl RBC Auto (Bld) [#/Vol] 5.7 10*3/uL 4.1-10.[address] [facility] Lymphocytes Auto (Bld) [#/Vo l]Ordered By: Melanie Trujillo on 03-31-2023 Lymphocytes (Bld) [#/Vol] 0.8 10*3/uL 1.00-4.[address] [facility] Lymphocytes/100 WBC Auto (Bl d)Ordered By: Melanie Trujillo on 03-31-2023 Lymphocytes/100 WBC (Bld) 13.8 % . [facility] MCH Auto (RBC) [Entitic mass ]Ordered By: Melanie Trujillo on 03-31-2023 MCH (RBC) [Entitic mass] 30.4 pg 27.5-35.[address] [facility] MCHC Auto (RBC) [Mass/Vol]Or dered By: Melanie Trujillo on 03-31-2023 MCHC (RBC) [Mass/Vol] 34.2 g/dL 32.5-35.6 [facility] MCV Auto (RBC) [Entitic vol] Ordered By: Melanie Trujillo on 03-31-2023 MCV (RBC) [Entitic vol] 89.0 fL 83.5-[address] [facility] Monocytes Auto (Bld) [#/Vol] Ordered By: Melanie Trujillo on 03-31-2023 Monocytes (Bld) [#/Vol] 0.8 10*3/uL 0.0-0.[address] [facility] Monocytes/100 WBC Auto (Bld) Ordered By: Melanie Trujillo on 03-31-2023 Monocytes/100 WBC (Bld) 13.9 % . [facility] Neutrophils Auto (Bld) [#/Vo l]Ordered By: Melanie Trujillo on 03-31-2023 Neutrophils (Bld) [#/Vol] 4.0 10*3/uL 1.8-7.[address] [facility] Neutrophils/100 WBC Auto (Bl d)Ordered By: Melanie Trujillo on 03-31-2023 Neutrophils/100 WBC (Bld) 70.1 % . [facility] No Panel InformationOrdered By: Melanie Trujillo on 03-31-2023 Estimated GFR (CKD-EPI) > 60.0 mL/Min [facility] Creatinine Clearance (Chem N/A [facility] No Panel Informationon 03-31 10.7\S\10.7 Normal 6.0-15.0 [facility] [employer] 250 DO Work Phone: 26.4\S\26.4 Normal 21.0-31.0 [facility] [employer] 250 DO Work Phone: 106\S\106 Normal 0-149 [facility] [employer] 250 DO Work Phone: Comment on above: TRIG ATP III CLASSIF ICATION TRIG less than 150 mg/dL Normal TRIG 150-199 mg/dL Borderline high TRIG 200-500 mg/dL High TRIG greater than 500 mg/dL Very high Standard traceable to the Center for Disease Conrtrol and Prevention (CDC) test method. 4.1\S\4.1 Normal 3.5-5.1 -[facility] manda 250 DO Work Phone: 139\S\139 Normal 136-145 [facility] holman 250 DO Work Phone: [phone] 23\S\23 Normal 7-25 [facility] manda 250 DO Work Phone: > 60.0 Normal [facility] holman 250 DO Work Phone: 0.88\S\0.88 Normal 0.70-1.30 [facility] manda 250 DO Work Phone: 3.3\S\3.3 Normal <5.0 [facility] Heart[facility]odia holman 250 DO Work Phone: Comment on above: PERFORMED BY:[facility] [place], [place] [phone] MEDICAL DIRECTORMOUNTAIN VISTA MEDICAL CENTER DEION M.Amanuel 21\S\21 Normal [facility] Reji holman 250 DO Work Phone: 40\S\40 Normal 29-71 [facility] Re[facility] holman 250 DO Work Phone: Comment on above: HDL CHOL ATP-III CLA SSIFICATION Cardiovascular Risk HDL > or equal to 60 mg/dL LOW HDL < 40 mg/dL HIGH 0.0\S\0.0 Normal 0.0-0.2 [facility]anda 250 DO Work Phone: Comment on above: PERFORMED BY:[place] [address] [address] [place], [place] [phone] MEDICAL DIRECTORTANKQUAIL RUN [facility] DEION M.DRigo 0.1\S\0.1 Normal 0-0.5 [facility] manda 250 DO Work Phone: 0.8\S\0.8 below low threshold 1.00-4.8 -[facility]u manda 250 DO Work Phone: [phone] 4.0\S\4.0 Normal 1.8-7.7 -[facility] manda 250 DO Work Phone: [phone] 0.6\S\0.6 Normal . [facility] manda 250 DO Work Phone: [phone] 1.6\S\1.6 Normal . [facility] manda 250 DO Work Phone: [phone] 13.9\S\13.9 Normal . [facility] manda 250 DO Work Phone: [phone] 13.8\S\13.8 Normal . [facility] manda 250 DO Work Phone: [phone] 70.1\S\70.1 Normal . [facility] manda 250 DO Work Phone: [phone] 8.4\S\8.4 Normal 6.6-10.1 [facility] manda 250 DO Work Phone: [phone] 180\S\180 Normal 150-450 [facility] manda 250 DO Work Phone: [phone] 14.5\S\14.5 Normal 12.0-14.8 [facility] manda 250 DO Work Phone: [phone] 34.2\S\34.2 Normal 32.5-35.6 [facility]anda 250 DO Work Phone: [phone] 30.4\S\30.4 Normal 27.5-35.2 [facility]anda 250 DO Work Phone: [phone] 89.0\S\89.0 Normal 83.5-101 [facility] manda 250 DO Work Phone: [phone] 46.7\S\46.7 Normal 38.8-50.0 [facility] manda 250 DO Work Phone: 16.0\S\16.0 Normal 13.0-17.0 [facility] [employer] manda 250 DO Work Phone: 5.24\S\5.24 Normal 3.90-5.60 [facility] [employer] manda 250 DO Work Phone: 5.7\S\5.7 Normal 4.1-10.5 [facility] 250 DO Work Phone: 39.0\S\39.0 above high threshold 25.1-36.5 [facility]anda 250 DO Work Phone: Comment on above: PERFORMED BY:[place] [address] [address] [place], [place] [phone] MEDICAL DIRECTOROLMAN ALBARRAN M.D. 1.1\S\1.1 Normal [facility] holman [place] DO Work Phone: Comment on above: INR [...] valves: 3 - 4.5 12.3\S\12.3 Normal 9.0-12.9 [facility] holman [place] DO Work Phone: Nucleated erythrocytes [Pres ence] in Blood by Automated countOrdered By: Melanie Trujillo on 03-31-2023 Nucleated RBC Auto Ql (Bld) 0.1 /100{WBC} 0-0.[address] [facility] Platelet mean volume Auto (B ld) [Entitic vol]Ordered By: Melanie Trujillo on 03-31-2023 Platelet mean volume (Bld) [Entitic vol] 8.4 fL 6.6-10.[address] [facility] Platelet poor plasma interna tional normalized ratio (INR) by coagulation assay (relatOrdered By: Melanie Trujillo on 03-31-2023 INR Coag (PPP) [Relative time] 1.1 {INR} [facility] Comment on above: INR Therapeutic Rang [...] 03-31-2023 Platelets (Bld) [#/Vol] 180 10*3/uL 150-[address] [facility] Potassium [Moles/volume] in Serum or PlasmaOrdered By: Melanie Trujillo on 03-31-2023 Potassium [Moles/Vol] 4.1 mmol/L 3.5-5.1 [facility] RBC Auto (Bld) [#/Vol]Ordere d By: Melanie Trujillo on 03-31-2023 RBC (Bld) [#/Vol] 5.24 10*6/uL 3.90-5.60 [facility] Serum or plasma anion gap de terminationOrdered By: Melanie Trujillo on 03-31-2023 Anion gap [Moles/Vol] 10.7 mmol/L 6.0-15.0 [facility] Serum or plasma high density lipoprotein (HDL) cholesterol measurementOrdered By: Melanie Trujillo on 03-31-2023 Cholesterol in HDL [Mass/Vol] 40 mg/dL 29-[address] [facility] Comment on above: HDL CHOL ATP-III CLA SSIFICATION Cardiovascular RiskHDL > or equal to 60 mg/dL LOWHDL < 40 mg/dL HIGH Serum or plasma total choles terol/high density lipoprotein (HDL) cholesterol mass ratOrdered By: Melanie Trujillo on 03-31-2023 Cholesterol.total/Chol esterol in HDL [Mass ratio] 3.3 {ratio} <5.[address] [facility] Sodium [Moles/volume] in Ser um or PlasmaOrdered By: Melanie Trujillo on 03-31-2023 Sodium [Moles/Vol] 139 mmol/L 136-145 [facility] Triglyceride [Mass/volume] i n Serum or PlasmaOrdered By: Melanie Trujillo on 03-31-2023 Triglyceride [Mass/Vol] 106 mg/dL 0-[address] [facility] Comment on above: TRIG ATP III CLASSIF ICATIONTRIG less than 150 mg/dL NormalTRIG 150-199 mg/dL Borderline highTRIG 200-500 mg/dL High TRIG greater than 500 mg/dL Very highStandard traceable to the Center for Disease Conrtrol and Prevention (CDC) test method. Urea nitrogen [Mass/volume] in Serum or PlasmaOrdered By: Melanie Trujillo on 03-31-2023 Urea nitrogen [Mass/Vol] 23 mg/dL 7-[address] 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) Rheumatoid arthritis (714.0) (M06.9) Orders Chest pain Start: Nitroglycerin 0.4 MG Sublingual Tablet Sublingual; PLACE 1 TABLET UNDER THE TONGUE EVERY 5 MINUTES FOR UP TO 3 DOSES NEEDED FOR CHEST PAIN.CALL 911 IF PAIN PERSISTS Chest pain, Hyperlipemia Cardiac Catherization; Status:Active - Retrospective Authorization; Requested for:[id number]; Chest pain, Hypertension, SOB (shortness of breath) on exertion IO EKG Electrocardiogram- 12 Lead; Status:Complete; Done: [id number] Class 1 obesity with body mass index (BMI) of 32.0 to 32.9 in adult Healthy Weight Tips; Status:Complete - Retrospective Authorization; Done: [id number] Some eating tips that can help you lose weight.; Status:Complete - Retrospective Authorization; Done: 30Mar2023 Hyperlipemia Renew: Aspirin 325 MG Oral Tablet Delayed Release; Take 1 tablet daily Renew: Simvastatin 20 MG Oral Tablet; TAKE 1 TABLET AT BEDTIME SocHx: Former smoker Tobacco Use Screening; Status:Complete; Done: [id number] Patient Instructions Please bring all medicines, vitamins, [...] and right neck radiation that occurred at [facility] this past Tuesday with subsequent stress imaging performed after he was admitted at [facility] that was reportedly unremarkable. Patient has since [...] Allergies Medication (more content not included)... Normal [employer] Tobacco Screening.on 023 Adult depression screening assessment No [facility] [employer] 250 DO Work Phone: Fall risk assessment a) No falls within the last year [facility] [employer] 250 DO Work Phone: Tobacco use status CPHS b) No [facility] [employer] 250 DO Work Phone: ECHOCARDIO M/2D COMPLETEon 0 03-21-2023 ECHOCARDIO M/2D COMPLETE Patient: VALENTIN TORRE Exam Date: 03/21/2023 : 1955 Gender:M Ordering : SHAIKH Pee MULTANI . Admission #: [id number] Family : DR SASCHA SUTTON Order #: [id number] CLICK HERE TO VIEW EXAM ECHOCARDIOGRAM REPORT [...] Area (VTI): 3.04 cm2, 3.04 cm2 Deceleration [place]: 0.56 m/s2 Pressure Half-Time: 991.91 ms Peak [...] Huynh M.D. on 03/24/2023 at 12:21 Normal [facility] NM STRESS/REST MULTIon 03-21 NM STRESS/REST MULTI Patient: JANEL TORRERigo Exam Date: 03/21/2023 : 1955 Gender:M Ordering : SHAIKH Pee MULTANI . Admission #: [id number] Family : Order #: [id number] CLICK HERE TO VIEW EXAM RADIOLOGY REPORT [...] M.D. on 03/22/2023 at 11:30 Normal [facility] TROPONIN, HIGH SENSITIVITYon 03-21-2023 HSTROP 13.1 pg/mL Normal 4.0-76.1 [facility] Comment on above: Result Comment: CUT- OFF POINTS HAVE BEEN ESTABLISHED BASED ON THE FOURTH UNIVERSAL DEFINITIONS OF MYOCARDIAL INFARCTION. THE UPPER REFERENCE LIMIT (URL) OF TROPONIN, DEFINED THE 99TH PERCENTILE OF cTnI DISTRIBUTION IN A REFERENCE POPULATION, HAS BEEN CONFIRMED THE DECISION THRESHOLD FOR CA DIAGNOSIS. Performed By: #### H STROPN ####[facility] [address] [place], [place] [address]RwDr. Jo De Dios BNPon 03-20-2023 Natriuretic peptide B (Bld) [Mass/Vol] 47.0 pg/mL Normal <=900.0 [facility] Comment on above: Performed By: #### B RUBBLE PLACER, CMP, CMADM #### [facility] [address] [place], [place] [address] Dr. Jo De Dios CARDIAC YANETH ADMITon 023 CK [Catalytic activity/Vol] 149 U/L Normal 39-308 [facility] Comment on above: Performed By: #### B RUBBLE PLACER, CMP, CMADM ####[facility] [id number] [place] [address]DrRigo De Dios CK.MB [Mass/Vol] 1.51 ng/mL Normal <=3.60 [facility] Comment on above: Performed By: #### B RUBBLE PLACER, CMP, CMADM ####[facility] [address] [place] [address]Dr. Jo De Dios HSTROP 14.8 pg/mL Normal 4.0-76.1 [facility] Comment on above: Result Comment: CUT- OFF POINTS HAVE BEEN ESTABLISHED BASED ON THE FOURTH UNIVERSAL DEFINITIONS OF MYOCARDIAL INFARCTION. THE UPPER REFERENCE LIMIT (URL) OF TROPONIN, DEFINED THE 99TH PERCENTILE OF cTnI DISTRIBUTION IN A REFERENCE POPULATION, HAS BEEN CONFIRMED THE DECISION THRESHOLD FOR CA DIAGNOSIS. Performed By: #### B RUBBLE PLACER, CMP, CMADM ####[facility] [address] [place] [address]DrRigo De Dios RAAD 55 ng/mL Normal 16-96 [facility] Comment on above: Performed By: #### B RUBBLE PLACER, CMP, CMADM ####[facility] [address] [place] [address]Dr. Jo De Dios CBC AUTO DIFFon 03-20-2023 BASO # 0.0 103/ul Normal 0.0-0.1 [facility] Comment on above: Performed By: #### C BC #### [facility] [address] [place] [address] [address] Jo De Dios Basophils/100 WBC (Bld) 0.7 % Normal 0.2-2.0 [facility] Comment on above: Performed By: #### C BC #### [facility] [address] [place] [address] [address] Jo De Dios EO # 0.1 103/ul Normal 0.0-0.7 [facility] Comment on above: Performed By: #### C BC #### [facility] [address] [place] [address] Dr. Jo De Dios Eosinophils/100 WBC (Bld) 1.5 % Normal 0.9-7.0 [facility] Comment on above: Performed By: #### C BC #### [facility] [address] [place] [address] Dr. Jo De Dios Erythrocyte distribution width (RBC) [Ratio] 14.3 % Normal 11.0-15.0 [facility] Comment on above: Performed By: #### C BC #### [facility] [address] [place] [address] Dr. Jo De Dios Hematocrit (Bld) [Volume fraction] 46.1 % Normal 42.0-54.0 [facility] Comment on above: Performed By: #### C BC #### [facility] [address] [place] [address] Dr. Jo De Dios Hemoglobin (Bld) [Mass/Vol] 15.9 g/dL Normal 14.0-18.0 [facility] Comment on above: Performed By: #### C BC #### [facility] [address] [place] [address] Dr. Jo De Dios IG # 0.03 10e3/ul Normal 0.00-0.03 [facility] Comment on above: Performed By: #### C BC #### [facility] [address] [place] [address] Dr. Jo De Dios IG % 0.5 % Normal 0.0-0.5 [facility] Comment on above: Performed By: #### C BC #### [facility] [address] [place] [address] Dr. Jo De Dios LYMPH # 0.8 103/ul Critically low 1.2-3.8 [facility] Comment on above: Performed By: #### C BC #### [facility] [address] [place] [address] Dr. Jo De Dios Lymphocytes/100 WBC (Bld) 12.6 % Critically low 20.5-60.0 [facility] Comment on above: Performed By: #### C BC #### [facility] [address] [place] [address] Dr. Jo De Dios MANUAL DIFF REQ NO Normal [facility] Comment on above: Performed By: #### C BC #### [facility] [address] [place] [address] Dr. Jo De Dios MCH (RBC) [Entitic mass] 30.1 pg Normal 25.9-34.0 [facility] Comment on above: Performed By: #### C BC #### [facility] [address] [place] [address] Dr. Jo De Dios MCHC (RBC) [Mass/Vol] 34.5 g/dL Normal 29.9-35.2 [facility] Comment on above: Performed By: #### C BC #### [facility] [address] [place] [address] Dr. Jo De Dios MCV (RBC) [Entitic vol] 87.1 fL Normal 80.0-94.0 [facility] Comment on above: Performed By: #### C BC #### [facility] [address] [place] [address] Dr. Jo De Dios MONO # 0.8 103/ul Normal 0.3-0.8 [facility] Comment on above: Performed By: #### C BC #### [facility] [address] [place] [address] Dr. Jo De Dios Monocytes/100 WBC (Bld) 13.7 % Critically high 1.7-12.0 [facility] Comment on above: Performed By: #### C BC #### [facility] [address] [place] [address] Dr. Jo De Dios NEUT # 4.4 103/ul Normal 1.4-6.5 [facility] Comment on above: Performed By: #### C BC #### [facility] [address] [place] [address] Dr. Jo De Dios Neutrophils/100 WBC (Bld) 71.0 % Normal 43.0-75.0 [facility] Comment on above: Performed By: #### C BC #### [facility] [address] [place] [address] Dr. Jo De Dios Platelet mean volume (Bld) [Entitic vol] 9.8 fL Normal 9.5-13.5 [facility] Comment on above: Performed By: #### C BC #### [facility] [address] [place] [address] Dr. Jo De Dios PLT 179 103/ul Normal 150-450 [facility] Comment on above: Performed By: #### C BC #### [facility] [address] [place] [address] Dr. Jo De Dios RBC 5.29 106/ul Normal 4.70-6.10 [facility] Comment on above: Performed By: #### C BC #### [facility] [address] [place] [address] Dr. Jo De Dios WBC 6.1 103/ul Normal 4.0-11.0 [facility] Comment on above: Performed By: #### C BC #### [facility] [address] [place] [address] Dr. Jo De Dios CTA CHEST WO [...] ROBERTA WOOD Date: 2023-03-20 16:10 Normal [facility] D-DIMERon 03-20-2023 D-DIMER 0.60 mg/L FEU Critically high <=0.59 [facility] Comment on above: Performed By: #### D DIM ####[facility] [id number] [place] [id number]. Jo De Dios D-DIMER COMMENTS SEE BELOW [...] generalized hospitalization. Performed By: #### D DIM ####[facility] [address] [place] [id number]. Jo De Dios ER URINE PROFILEon 3 Bilirubin Ql (U) Negative Normal NEGATIVE [facility] Comment on above: Performed By: #### E RUR #### [facility] [address] [place] [address] Dr. Jo De Dios Clarity (U) CLEAR Normal CLEAR [facility] Comment on above: Performed By: #### E RUR #### [facility] [address] [place] [address] [address] Jo De Dios Color (U) LT. YELLOW Normal YELLOW [facility] Comment on above: Performed By: #### E RUR #### [facility] [address] [place] [address] [address] Jo RACHEL A micrscopic examina tion will be performed if indicated. Normal [facility] Comment on above: Performed By: #### E RUR #### [facility] [address] [place] [address] [address] Jo De Dios Glucose Ql (U) Negative Normal NEGATIVE [facility] Comment on above: Performed By: #### E RUR #### [facility] [address] [place] [address] Dr. Jo De Dios Hemoglobin Ql (U) Negative Normal NEGATIVE [facility] Comment on above: Performed By: #### E RUR #### [facility] [address] [place] [address] Dr. Jo De Dios Ketones Ql (U) Negative Normal NEGATIVE [facility] Comment on above: Performed By: #### E RUR #### [facility] [address] [place] [address] Dr. Jo De Dios LEUKOCYTES Negative Normal NEGATIVE [facility] Comment on above: Performed By: #### E RUR #### [facility] [address] [place] [address] Dr. Jo De Dios Nitrite Ql (U) Negative Normal NEGATIVE [facility] Comment on above: Performed By: #### E RUR #### [facility] [address] [place] [address] Dr. Jo De Dios pH (U) 5.0 [pH] Normal 5-9 [facility] Comment on above: Performed By: #### E RUR #### [facility] [address] [place] [address] Dr. Jo De Dios SPEC GRAVITY 1.020 Normal 1.005-<=1. 025 [facility] Comment on above: Performed By: #### E RUR #### [facility] [address] [place] [address] Dr. Jo De Dios UA PROTEIN Negative Normal NEGATIVE/ TRACE [facility] Comment on above: Performed By: #### E RUR #### [facility] [address] [place] [address] Dr. Jo De Dios UR MICRO IND NOT INDICATED Normal [facility] Comment on above: Performed By: #### E RUR #### [facility] [address] [place] [address] Dr. Jo De Dios Urobilinogen Qn (U) 0.2 {Carrie'U}/dL Normal 0.2 - 1. 0 [facility] Comment on above: Performed By: #### E RUR #### [facility] [address] [place] [address] Dr. Jo De Dios GLYCOHEMOGLOBIN A1Con 2022 ADA RECOMMENDATION SEE BELOW Normal [facility] Comment on above: Result Comment: ADA RECOMMENDED LIMIT 4.0 - 6.0 ADA THERAPEUTIC TARGET < 7.0 ACTION SUGGESTED > 7.0 Performed By: #### A 1C #### [facility] [address] [place] [address] Dr. Jo De Dios Glucose [Mass/Vol] 103 mg/dL Normal [facility] Comment on above: Performed By: #### A 1C #### [facility] [address] [place] [address] Dr. Jo De Dios HbA1c (Bld) [Mass fraction] 5.2 % Normal 4.5-6.2 [facility] Comment on above: Performed By: #### A 1C #### [facility] [address] [place] [address] Dr. Jo De Dios LIPID PROFILEon 03-20-2023 CHOL-HDL RATIO NORM SEE BELOW Normal [facility] Comment on above: Result Comment: 3.3 - 4.4 LOW RISK 4.4 - 7.1 AVERAGE RISK 7.1 - 11.0 MODERATE RISK >11.0 HIGH RISK Performed By: #### L IPID #### [facility] [address] [place] [address] Dr. Jo De Dios Cholesterol [Mass/Vol] 132 mg/dL Normal <=200 [facility] Comment on above: Performed By: #### L IPID #### [facility] [address] [place] [address] Dr. Jo De Dios Cholesterol in HDL [Mass/Vol] 46 mg/dL Normal 40-60 [facility] Comment on above: Performed By: #### L IPID #### [facility] [address] [place] [address] Dr. Jo De Dios Cholesterol in LDL [Mass/Vol] 69.4 mg/dL Normal [facility] Comment on above: Performed By: #### L IPID #### [facility] [address] [place] [address] [address] Jo De Dios Cholesterol.total/Chol esterol in HDL [Mass ratio] 2.9 {ratio} Normal [facility] Comment on above: Performed By: #### L IPID #### [facility] [address] [address] [address] Jo De Dios HDL NORMAL > or = 60 mg/dl - LO W CARDIOVASCULAR RISK <40 mg/dl - HIGH CARDIOVASCULAR RISK Normal [facility] Comment on above: Performed By: #### L IPID #### [facility] [address] [address] [address] Jo De Dios LDL CALC NORMAL SEE BELOW Normal [facility] Comment on above: Result Comment: <100 mg/dl OPTIMAL 100 - 129 mg/dl NEAR OR ABOVE OPTIMAL 130 - 159 mg/dl BORDERLINE HIGH 160 - 189 mg/dl HIGH >190 mg/dl VERY HIGH Performed By: #### L IPID #### [facility] [address] [place] [address] Dr. Jo De Dios Triglyceride [Mass/Vol] 83 mg/dL Normal <=150 [facility] Comment on above: Performed By: #### L IPID #### [facility] [address] [place] [address] Dr. Jo De Dios VLDL CALC 16.6 mg/dL Normal [facility] Comment on above: Performed By: #### L IPID #### [facility] [address] [place] [address] Dr. Jo De Dios PROF 14(COMP METB)on 023 Albumin [Mass/Vol] 3.7 g/dL Normal 3.4-5.0 [facility] Comment on above: Performed By: #### B RUBBLE PLACER, CMP, CMADM #### [facility] [address] [place] [address] Dr. Jo De Dios Albumin/Globulin [Mass ratio] 1.1 {ratio} Normal [facility] Comment on above: Performed By: #### B RUBBLE PLACER, CMP, CMADM #### [facility] [address] [place] [address] Dr. Jo De Dios ALP [Catalytic activity/Vol] 96 U/L Normal 46-116 [facility] Comment on above: Performed By: #### B RUBBLE PLACER, CMP, CMADM #### [facility] [address] [place] [address] Dr. Jo De Dios ALT [Catalytic activity/Vol] 41 U/L Normal 16-63 [facility] Comment on above: Performed By: #### B RUBBLE PLACER, CMP, CMADM #### [facility] [address] [place] [address] Dr. Jo De Dios Anion gap [Moles/Vol] 11.2 mmol/L Normal [facility] Comment on above: Performed By: #### B RUBBLE PLACER, CMP, CMADM #### [facility] [address] [place] [address] Dr. Jo De Dios AST [Catalytic activity/Vol] 25 U/L Normal 15-37 [facility] Comment on above: Performed By: #### B RUBBLE PLACER, CMP, CMADM #### [facility] [address] [place] [address] Dr. Jo De Dios Bilirubin [Mass/Vol] 0.8 mg/dL Normal 0.2-1.0 [facility] Comment on above: Performed By: #### B RUBBLE PLACER, CMP, CMADM #### [facility] [address] [place] [address] Dr. Jo De Dios Calcium [Mass/Vol] 8.8 mg/dL Normal 8.5-10.1 [facility] Comment on above: Performed By: #### B RUBBLE PLACER, CMP, CMADM #### [facility] [address] [place] [address] Dr. Jo De Dios Chloride [Moles/Vol] 109 mmol/L Critically high 98-107 [facility] Comment on above: Performed By: #### B RUBBLE PLACER, CMP, CMADM #### [facility] [address] [place] [address] Dr. Jo De Dios CO2 [Moles/Vol] 23.4 mmol/L Normal 21.0-32.0 [facility] Comment on above: Performed By: #### B RUBBLE PLACER, CMP, CMADM #### [facility] [address] [address] [address] Jo De Dios Creatinine [Mass/Vol] 0.84 mg/dL Normal 0.70-1.30 [facility] Comment on above: Performed By: #### B RUBBLE PLACER, CMP, CMADM #### [facility] [address] [address] [address] Jo De Dios EGFR-AF ETHIOPIAN >60 Normal >=60 [facility] Comment on above: Performed By: #### B RUBBLE PLACER, CMP, CMADM #### [facility] [address] [address] [address] Jo De Dios EGFR-NON AF ETHIOPIAN >60 Normal >=60 [facility] Comment on above: Performed By: #### B RUBBLE PLACER, CMP, CMADM #### [facility] [address] [address] [address] Jo De Dios Globulin (S) [Mass/Vol] 3.3 g/dL Normal [facility] Comment on above: Performed By: #### B RUBBLE PLACER, CMP, CMADM #### [facility] [address] [address] [address] Jo De Dios Glucose [Mass/Vol] 96 mg/dL Normal 74-106 [facility] Comment on above: Performed By: #### B RUBBLE PLACER, CMP, CMADM #### [facility] [address] [address] [address] Jo De Dios Potassium [Moles/Vol] 3.6 mmol/L Normal 3.5-5.1 [facility] Comment on above: Performed By: #### B RUBBLE PLACER, CMP, CMADM #### [facility] [address] [address] [address] Jo De Dios Protein [Mass/Vol] 7.0 g/dL Normal 6.4-8.2 [facility] Comment on above: Performed By: #### B RUBBLE PLACER, CMP, CMADM #### [facility] [address] [address] [address] Jo De Dios Sodium [Moles/Vol] 140 mmol/L Normal 136-145 [facility] Comment on above: Performed By: #### B RUBBLE PLACER, CMP, CMADM #### [facility] [address] [address] [address] Jo De Dios Urea nitrogen [Mass/Vol] 21.0 mg/dL Critically high 7.0-18.0 [facility] Comment on above: Performed By: #### B RUBBLE PLACER, CMP, CMADM #### [facility] [address] [address] [address] Jo De Dios Urea nitrogen/Creatinine [Mass ratio] 25.0 mg/mg Normal [facility] Comment on above: Performed By: #### B RUBBLE PLACER, CMP, CMADM #### [facility] [address] [address] [address] Jo De Dios PROTIMEon 03-20-2023 INR Coag (PPP) [Relative time] 0.96 {INR} Normal [facility] Comment on above: Performed By: #### P T, PTT ####[facility] [id number] [address]Dr. Jo De Dios INR GUIDELINES SEE BELOW Normal [facility] Comment on above: Result Comment: BETSEY RED INR: 2.0 - 3.0 CONDITIONS NOT LISTED BELOW 2.5 - 3.5 FOR PROSTHETIC HEART VALVE REPLACEMENT 2.5 - 3.5 RECURRENT THROMBOSIS Performed By: #### P T, PTT ####[facility] [id number] [address]DrRigo De Dios PT Coag (PPP) [Time] 10.2 s Normal 9.0-11.6 [facility] Comment on above: Performed By: #### P T, PTT ####[facility] [id number] [address]DrRigo De Dios PTTon 03-20-2023 aPTT Coag (Bld) [Time] 30.0 s Normal 22.3-36.2 [facility] Comment on above: Performed By: #### P T, PTT ####[facility] [id number] [address]DrRigo De Dios TROPONIN, HIGH SENSITIVITYon 03-20-2023 HSTROP 30.2 pg/mL Normal 4.0-76.1 [facility] Comment on above: Result Comment: CUT- OFF POINTS HAVE BEEN ESTABLISHED BASED ON THE FOURTH UNIVERSAL DEFINITIONS OF MYOCARDIAL INFARCTION. THE UPPER REFERENCE LIMIT (URL) OF TROPONIN, DEFINED THE 99TH PERCENTILE OF cTnI DISTRIBUTION IN A REFERENCE POPULATION, HAS BEEN CONFIRMED THE DECISION THRESHOLD FOR CA DIAGNOSIS. Performed By: #### H WILMA ####[facility] [address] [place], [place] [address]KwRigo De Dios XR CHEST 1 Von 03-20-2023 [...] GAVIN MINER Date: 2023-03-20 12:56 Normal [facility] Alanine aminotransferase [En zymatic activity/volume] in Serum or PlasmaOrdered By: Christine Sanchez on 01-31-2023 ALT [Catalytic activity/Vol] 34 U/L 7-[address] [facility] Albumin [Mass/volume] in Ser um or Plasma by Bromocresol green (BCG) dye binding methoOrdered By: Christine Sanchez on 01-31-2023 Albumin BCG dye [Mass/Vol] 4.3 g/dL 3.5-5.[address] [facility] Alkaline phosphatase [Enzyma tic activity/volume] in Serum or PlasmaOrdered By: Christine Sanchez on 01-31-2023 ALP [Catalytic activity/Vol] 70 U/L 34-[address] [facility] Aspartate aminotransferase [ Enzymatic activity/volume] in Serum or PlasmaOrdered By: Christine Sanchez on 01-31-2023 AST [Catalytic activity/Vol] 23 U/L 13-[address] [facility] Automated erythrocytes count in urine sediment (number/area)Ordered By: Christine Sanchez on 01-31-2023 RBC Auto (Urine sed) [#/Area] 1-2 [HPF] 0-[address] [facility] Automated leukocytes count i n urine sediment (number/area)Ordered By: Christine Sanchez on 01-31-2023 WBC Auto (Urine sed) [#/Area] 1-2 [HPF] 0-[address] [facility] Basophils Auto (Bld) [#/Vol] Ordered By: Christine Sanchez on 01-31-2023 Basophils (Bld) [#/Vol] 0.0 10*3/uL 0.0-0.[address] [facility] Basophils/100 WBC Auto (Bld) Ordered By: Christine Sanchez on 01-31-2023 Basophils/100 WBC (Bld) 0.5 % . [facility] Bilirubin Test strip Ql (U)O rdered By: Christine Sanchez on 01-31-2023 Bilirubin Ql (U) Negative Negative [facility] Bilirubin.total [Mass/volume ] in Serum or PlasmaOrdered By: Christine Sanchez on 01-31-2023 Bilirubin [Mass/Vol] 0.8 mg/dL 0.3-1.0 [facility] Calcium [Mass/volume] in Ser um or PlasmaOrdered By: Christine Sanchez on 01-31-2023 Calcium [Mass/Vol] 8.9 mg/dL 8.6-10.3 [facility] Carbon dioxide, total [Moles /volume] in Serum or PlasmaOrdered By: Christine Sanchez on 01-31-2023 CO2 [Moles/Vol] 24.6 mmol/L 21.0-31.0 [facility] Chloride [Moles/volume] in S ace or PlasmaOrdered By: Christine Sanchez on 01-31-2023 Chloride [Moles/Vol] 108 mmol/L 98-107 [facility] Color Auto (U)Ordered By: Marianna Arellano on 01-31-2023 Color (U) Dark yellow Yellow [facility] Creatinine [Mass/volume] in Serum or PlasmaOrdered By: Christine Sanchez on 01-31-2023 Creatinine [Mass/Vol] 0.90 mg/dL 0.70-1.30 [facility] Eosinophils Auto (Bld) [#/Vo l]Ordered By: Christine Sanchez on 01-31-2023 Eosinophils (Bld) [#/Vol] 0.1 10*3/uL 0.0-0.[address] [facility] Eosinophils/100 WBC Auto (Bl d)Ordered By: Christine Sanchez on 01-31-2023 Eosinophils/100 WBC (Bld) 1.2 % . [facility] Erythrocyte distribution wid th Auto (RBC) [Ratio]Ordered By: Christine Sanchez on 01-31-2023 Erythrocyte distribution width (RBC) [Ratio] 15.2 % 12.0-14.[address] [facility] Erythrocyte sedimentation ra te by Photometric methodOrdered By: Christine Sanchez on 01-31-2023 ESR Photometric method (Bld) [Velocity] 3 mm/hr 0-[address] [facility] Globulin Calc (S) [Mass/Vol] Ordered By: Christine Sanchez on 01-31-2023 Globulin (S) [Mass/Vol] 1.9 g/dL [facility] Glucose [Mass/volume] in Ser um or PlasmaOrdered By: Christine Sanchez on 01-31-2023 Glucose [Mass/Vol] 131 mg/dL 74-109 [facility] Comment on above: ADA recommended refe rence rangeRandom Glucose Reference Range is dependent on time and content of last meal. Glucose of more than 200 mg/dL in a nonstressed, ambulatory subject supports the diagnosis of Diabetes Mellitus. Hematocrit Auto (Bld) [Volum e fraction]Ordered By: Christine Sanchez on 01-31-2023 Hematocrit (Bld) [Volume fraction] 45.2 % 38.8-50.[address] [facility] Hemoglobin [Mass/volume] in BloodOrdered By: Christine Sanchez on 01-31-2023 Hemoglobin (Bld) [Mass/Vol] 15.4 g/dL 13.0-17.[address] [facility] Ketones Auto test strip (U) [Mass/Vol]Ordered By: Christine Sanchez on 01-31-2023 Ketones (U) [Mass/Vol] Trace Negative [facility] - Chemistry and C hemistry - challengeOrdered By: Christine Sanchez on 01-31-2023 GFR/1.73 sq M.predicted MDRD (S/P/Bld) [Vol rate/Area] mL/min/{1.73_m2} [facility] - UrinalysisOrder ed By: Christine Sanchez on 01-31-2023 Hyaline casts LM Ql (Urine sed) 0-8 [LPF] 0-[address] [facility] Leukocytes [#/volume] correc nat for nucleated erythrocytes in Blood by Automated counOrdered By: Christine Sanchez on 01-31-2023 WBC corrected for nucl RBC Auto (Bld) [#/Vol] 4.5 10*3/uL 4.1-10.[address] [facility] Lymphocytes Auto (Bld) [#/Vo l]Ordered By: Christine Sanchez on 01-31-2023 Lymphocytes (Bld) [#/Vol] 0.7 10*3/uL 1.00-4.[address] [facility] Lymphocytes/100 WBC Auto (Bl d)Ordered By: Christine Sanchez on 01-31-2023 Lymphocytes/100 WBC (Bld) 15.3 % . [facility] MCH Auto (RBC) [Entitic mass ]Ordered By: Christine Sanchez on 01-31-2023 MCH (RBC) [Entitic mass] 30.4 pg 27.5-35.[address] [facility] MCHC Auto (RBC) [Mass/Vol]Or dered By: Christine Sanchez on 01-31-2023 MCHC (RBC) [Mass/Vol] 34.1 g/dL 32.5-35.6 [facility] MCV Auto (RBC) [Entitic vol] Ordered By: Christine Sanchez on 01-31-2023 MCV (RBC) [Entitic vol] 89.0 fL 83.5-[address] [facility] Monocytes Auto (Bld) [#/Vol] Ordered By: Christine Sanchez on 01-31-2023 Monocytes (Bld) [#/Vol] 0.4 10*3/uL 0.0-0.[address] [facility] Monocytes/100 WBC Auto (Bld) Ordered By: Christine Sanchez on 01-31-2023 Monocytes/100 WBC (Bld) 9.0 % . [facility] Neutrophils Auto (Bld) [#/Vo l]Ordered By: Christine Sanchez on 01-31-2023 Neutrophils (Bld) [#/Vol] 3.3 10*3/uL 1.8-7.[address] [facility] Neutrophils/100 WBC Auto (Bl d)Ordered By: Christine Sanchez on 01-31-2023 Neutrophils/100 WBC (Bld) 74.0 % . [facility] Nitrite Test strip Ql (U)Ord ered By: Christine Sanchez on 01-31-2023 Nitrite Ql (U) Negative Negative [facility] No Panel InformationOrdered By: Christine Sanchez on 01-31-2023 Pharmacy Creatinine Clearance (Chem N/A [facility] Total Complement (CH50) >60 U/mL >[address] [facility] Comment on above: Age Male Female [...] determine out of range values.Performed at: - [address] [id number] Director: Richy Ardon PhD, Phone: [phone] Nucleated erythrocytes [Pres ence] in Blood by Automated countOrdered By: Christine Sanchez on 01-31-2023 Nucleated RBC Auto Ql (Bld) 0.3 /100{WBC} 0-0.[address] [facility] Platelet mean volume Auto (B ld) [Entitic vol]Ordered By: Christine Sanchez on 01-31-2023 Platelet mean volume (Bld) [Entitic vol] 8.5 fL 6.6-10.[address] [facility] Platelets Auto (Bld) [#/Vol] Ordered By: Christine Sanchez on 01-31-2023 Platelets (Bld) [#/Vol] 163 10*3/uL 150-[address] [facility] Potassium [Moles/volume] in Serum or PlasmaOrdered By: Christine Sanchez on 01-31-2023 Potassium [Moles/Vol] 3.7 mmol/L 3.5-5.1 [facility] Protein Auto test strip (U) [Mass/Vol]Ordered By: Christine Sanchez on 01-31-2023 Protein (U) [Mass/Vol] Trace mg/dL Negative [facility] Protein [Mass/volume] in Ser um or PlasmaOrdered By: Christine Sanchez on 01-31-2023 Protein [Mass/Vol] 6.2 g/dL 6.4-8.9 [facility] RBC Auto (Bld) [#/Vol]Ordere d By: Christine Sanchez on 01-31-2023 RBC (Bld) [#/Vol] 5.08 10*6/uL 3.90-5.60 [facility] Serum or plasma albumin/glob ulin mass ratioOrdered By: Christine Sanchez on 01-31-2023 Albumin/Globulin [Mass ratio] 2.3 {ratio} [facility] Serum or plasma anion gap de terminationOrdered By: Christine Sanchez on 01-31-2023 Anion gap [Moles/Vol] 11.1 mmol/L 6.0-15.0 [facility] Serum or plasma complement C 3 measurement (mass/volume)Ordered By: Christine Sanchez on 01-31-2023 Complement C3 [Mass/Vol] 124 mg/dL 82-[address] [facility] Comment on above: Performed at: [address] [id number] Director: Richy Ardon PhD, Phone: [phone] Serum or plasma complement C 4 measurement (mass/volume)Ordered By: Christine Sanchez on 01-31-2023 Complement C4 [Mass/Vol] 16 mg/dL 12-[address] [facility] Sodium [Moles/volume] in Ser um or PlasmaOrdered By: Christine Sanchez on 01-31-2023 Sodium [Moles/Vol] 140 mmol/L 136-145 [facility] Specific gravity Auto test s trip (U) [Rel density]Ordered By: Christine Sanchez on 01-31-2023 Specific gravity (U) [Rel density] 1.028 1.001-1.[address] [facility] Squamous epithelial cells de tection in urine sediment by light microscopyOrdered By: Christine Sanchez on 01-31-2023 Epithelial cells.squamous LM Ql (Urine sed) 0-1 [HPF] 0-[address] [facility] Urea nitrogen [Mass/volume] in Serum or PlasmaOrdered By: Christine Sanchez on 01-31-2023 Urea nitrogen [Mass/Vol] 23 mg/dL 7-[address] [facility] Urine bacteria detection by automated methodOrdered By: Christine Sanhcez on 01-31-2023 Bacteria Auto Ql (U) None seen None Seen [facility] Urine clarity by refractomet ry automatedOrdered By: Chrsitine Sanchez on 01-31-2023 Clarity Refractometry automated (U) Turbid Clear [facility] Urine glucose measurement by automated test strip (mass/volume)Ordered By: Christine Sanchez on 01-31-2023 Glucose Auto test strip (U) [Mass/Vol] Normal mg/dL Normal [facility] Urine hemoglobin detection b y automated test stripOrdered By: Christine Sanchez on 01-31-2023 Hemoglobin Auto test strip Ql (U) Negative Negative [facility] Urine leukocyte esterase det ection by automated test stripOrdered By: Christine Sanchez on 01-31-2023 Leukocyte esterase Auto test strip Ql (U) 1+ Negative [facility] Urobilinogen Auto test strip (U) [Mass/Vol]Ordered By: Christine Sanchez on 01-31-2023 Urobilinogen (U) [Mass/Vol] Normal mg/dL Normal [facility] WBC Auto (Bld) [#/Vol]Ordere d By: Christine Sanchez on 01-31-2023 WBC (Bld) [#/Vol] 4.5 10*3/uL 4.1-10.5 [facility] pH Auto test strip (U)Ordere d By: Christine Sanchez on 01-31-2023 pH (U) 5.0 [pH] 5.0-9.[address] [facility] Automated erythrocytes count in urine sediment (number/area)Ordered By: Christine Sanchez on 10-26-2022 RBC Auto (Urine sed) [#/Area] 0-1 [HPF] 0-[address] [facility] Automated leukocytes count i n urine sediment (number/area)Ordered By: Christine Sanchez on 10-26-2022 WBC Auto (Urine sed) [#/Area] 0-1 [HPF] 0-[address] [facility] Basophils Auto (Bld) [#/Vol] Ordered By: Christine Sanchez on 10-26-2022 Basophils (Bld) [#/Vol] 0.0 10*3/uL 0.0-0.[address] [facility] Basophils/100 WBC Auto (Bld) Ordered By: Christine Sanchez on 10-26-2022 Basophils/100 WBC (Bld) 0.6 % . [facility] Bilirubin Test strip Ql (U)O rdered By: Christine Sanchez on 10-26-2022 Bilirubin Ql (U) Negative Negative [facility] Body fluid albumin measureme nt (mass/volume)Ordered By: Christine Sanchez on 10-26-2022 Albumin (Body fld) [Mass/Vol] 4.0 g/dL 3.2-5.[address] [facility] Color Auto (U)Ordered By: Marianna Arellano on 10-26-2022 Color (U) Yellow Yellow [facility] Creatinine and Glomerular fi ltration rate.predicted panel (S/P/Bld)Ordered By: Christine Sanchez on 10-26-2022 Creatinine [Mass/Vol] 0.89 mg/dL 0.64-1.27 [facility] Eosinophils Auto (Bld) [#/Vo l]Ordered By: Christine Sanchez on 10-26-2022 Eosinophils (Bld) [#/Vol] 0.1 10*3/uL 0.0-0.[address] [facility] Eosinophils/100 WBC Auto (Bl d)Ordered By: Christine Sanchez on 10-26-2022 Eosinophils/100 WBC (Bld) 1.9 % . [facility] Erythrocyte distribution wid th Auto (RBC) [Ratio]Ordered By: Christine Sanchez on 10-26-2022 Erythrocyte distribution width (RBC) [Ratio] 14.7 % 12.0-14.[address] [facility] Erythrocyte sedimentation ra te by Photometric methodOrdered By: Christine Sanchez on 10-26-2022 ESR Photometric method (Bld) [Velocity] 6 mm/hr 0-[address] [facility] Estimated glomerular filtrat ion rate (GFR) non- AmericanOrdered By: Christine Sanchez on 10-26-2022 GFR/1.73 sq M.predicted among non-blacks MDRD (S/P/Bld) [Vol rate/Area] > 60 mL/Min [facility] Globulin Calc (S) [Mass/Vol] Ordered By: Christine Sanchez on 10-26-2022 Globulin (S) [Mass/Vol] 2.2 g/dL [facility] Hematocrit Auto (Bld) [Volum e fraction]Ordered By: Christine Sanchez on 10-26-2022 Hematocrit (Bld) [Volume fraction] 45.5 % 38.8-50.[address] [facility] Hemoglobin [Mass/volume] in BloodOrdered By: Christine Sanchez on 10-26-2022 Hemoglobin (Bld) [Mass/Vol] 15.5 g/dL 13.0-17.[address] [facility] Ketones Auto test strip (U) [Mass/Vol]Ordered By: Christine Sanchez on 10-26-2022 Ketones (U) [Mass/Vol] Trace Negative [facility] - UrinalysisOrder ed By: Christine Sanchez on 10-26-2022 Hyaline casts LM Ql (Urine sed) 0-8 [LPF] 0-[address] [facility] Leukocytes [#/volume] correc nat for nucleated erythrocytes in Blood by Automated counOrdered By: Christine Sanchez on 10-26-2022 WBC corrected for nucl RBC Auto (Bld) [#/Vol] 4.7 10*3/uL 4.1-10.[address] [facility] Lymphocytes Auto (Bld) [#/Vo l]Ordered By: Christine Sanchez on 10-26-2022 Lymphocytes (Bld) [#/Vol] 0.8 10*3/uL 1.00-4.[address] [facility] Lymphocytes/100 WBC Auto (Bl d)Ordered By: Christine Sanchez on 10-26-2022 Lymphocytes/100 WBC (Bld) 16.8 % . [facility] MCH Auto (RBC) [Entitic mass ]Ordered By: Christine Sanchez on 10-26-2022 MCH (RBC) [Entitic mass] 30.4 pg 27.5-35.[address] [facility] MCHC Auto (RBC) [Mass/Vol]Or dered By: Christine Sanchez on 10-26-2022 MCHC (RBC) [Mass/Vol] 33.9 g/dL 32.5-35.6 [facility] MCV Auto (RBC) [Entitic vol] Ordered By: Christine Sanchez on 10-26-2022 MCV (RBC) [Entitic vol] 89.6 fL 83.5-[address] [facility] Monocytes Auto (Bld) [#/Vol] Ordered By: Christine Sanchez on 10-26-2022 Monocytes (Bld) [#/Vol] 0.6 10*3/uL 0.0-0.[address] [facility] Monocytes/100 WBC Auto (Bld) Ordered By: Christine Sanchez on 10-26-2022 Monocytes/100 WBC (Bld) 12.8 % . [facility] Neutrophils Auto (Bld) [#/Vo l]Ordered By: Christine Sanchez on 10-26-2022 Neutrophils (Bld) [#/Vol] 3.2 10*3/uL 1.8-7.[address] [facility] Neutrophils/100 WBC Auto (Bl d)Ordered By: Christine Sanchez on 10-26-2022 Neutrophils/100 WBC (Bld) 67.9 % . [facility] Nitrite Test strip Ql (U)Ord ered By: Christine Sanchez on 10-26-2022 Nitrite Ql (U) Negative Negative [facility] No Panel InformationOrdered By: Christine Sanchze on 10-26-2022 Estimated GFR () > 60 mL/Min [facility] Comment on above: GFR estimated refere nce range: According to KDOQI guidelines, <60 ml/min/1.73m2 is sufficient to diagnose a patient with chronic kidney disease. Pharmacy Creatinine Clearance (Chem N/A [facility] Nucleated erythrocytes [Pres ence] in Blood by Automated countOrdered By: Christine Sanchez on 10-26-2022 Nucleated RBC Auto Ql (Bld) 0.3 /100{WBC} 0-0.[address] [facility] Platelet mean volume Auto (B ld) [Entitic vol]Ordered By: Christine Sanchez on 10-26-2022 Platelet mean volume (Bld) [Entitic vol] 8.3 fL 6.6-10.[address] [facility] Platelets Auto (Bld) [#/Vol] Ordered By: Christine Sanchez on 10-26-2022 Platelets (Bld) [#/Vol] 203 10*3/uL 150-[address] [facility] Protein Auto test strip (U) [Mass/Vol]Ordered By: Christine Sanchez on 10-26-2022 Protein (U) [Mass/Vol] Negative Negative [facility] Protein [Mass/volume] in Ser um or PlasmaOrdered By: Christine Sanchez on 10-26-2022 Protein [Mass/Vol] 6.2 g/dL 6.1-7.9 [facility] RBC Auto (Bld) [#/Vol]Ordere d By: Christine Sanchez on 10-26-2022 RBC (Bld) [#/Vol] 5.08 10*6/uL 3.90-5.60 [facility] Serum or plasma alanine calvert otransferase measurement without P-5'-P (enzymatic activiOrdered By: Christine Sanchez on 10-26-2022 ALT No additional P-5'-P [Catalytic activity/Vol] 40 U/L 10-[address] [facility] Serum or plasma albumin/glob ulin mass ratioOrdered By: Christine Sanchez on 10-26-2022 Albumin/Globulin [Mass ratio] 1.8 {ratio} [facility] Serum or plasma alkaline kelsie sphatase measurement (enzymatic activity/volume)Ordered By: Christine Sanchez on 10-26-2022 ALP [Catalytic activity/Vol] 82 U/L 32-[address] [facility] Serum or plasma anion gap de terminationOrdered By: Christine Sanchez on 10-26-2022 Anion gap [Moles/Vol] 16.9 mmol/L 6.0-15.0 [facility] Serum or plasma aspartate am inotransferase measurement (enzymatic activity/volume)Ordered By: Christine Sanchez on 10-26-2022 AST [Catalytic activity/Vol] 24 U/L 10-[address] [facility] Serum or plasma calcium ophelia urement (mass/volume)Ordered By: Christine Sanchez on 10-26-2022 Calcium [Mass/Vol] 9.6 mg/dL 8.2-10.2 [facility] Serum or plasma chloride arelis surement (moles/volume)Ordered By: Christine Sanchez on 10-26-2022 Chloride [Moles/Vol] 102 mmol/L 95-114 [facility] Serum or plasma glucose ophelia urement (mass/volume)Ordered By: Christine Sanchez on 10-26-2022 Glucose [Mass/Vol] 105 mg/dL 70-100 [facility] Comment on above: ADA recommended refe rence rangeRandom Glucose Reference Range is dependent on time and content of last meal. Glucose of more than 200 mg/dL in a nonstressed, ambulatory subject supports the diagnosis of Diabetes Mellitus. Serum or plasma potassium me asurement (moles/volume)Ordered By: Christine Sanchez on 10-26-2022 Potassium [Moles/Vol] 4.1 mmol/L 3.5-5.1 [facility] Serum or plasma sodium measu rement (moles/volume)Ordered By: Christine Sanchez on 10-26-2022 Sodium [Moles/Vol] 136 mmol/L 136-146 [facility] Serum or plasma total biliru bin measurement (mass/volume)Ordered By: Christine Sanchez on 10-26-2022 Bilirubin [Mass/Vol] 0.8 mg/dL 0.3-1.2 [facility] Serum or plasma total carbon dioxide measurement (moles/volume)Ordered By: Christine Sanchez on 10-26-2022 CO2 [Moles/Vol] 21.2 mmol/L 22.0-30.0 [facility] Serum or plasma urea nitroge n measurement (mass/volume)Ordered By: Christine Sanchez on 10-26-2022 Urea nitrogen [Mass/Vol] 16 mg/dL 9-[address] [facility] Specific gravity Auto test s trip (U) [Rel density]Ordered By: Christine Sanchez on 10-26-2022 Specific gravity (U) [Rel density] 1.024 1.001-1.[address] [facility] Squamous epithelial cells de tection in urine sediment by light microscopyOrdered By: Christine Sanchez on 10-26-2022 Epithelial cells.squamous LM Ql (Urine sed) None seen [HPF] 0-[address] [facility] Urine bacteria detection by automated methodOrdered By: Christine Sanchez on 10-26-2022 Bacteria Auto Ql (U) None seen None Seen [facility] Urine clarity by refractomet ry automatedOrdered By: Christine Sanchez on 10-26-2022 Clarity Refractometry automated (U) Clear Clear [facility] Urine glucose measurement by automated test strip (mass/volume)Ordered By: Christine Sanchez on 10-26-2022 Glucose Auto test strip (U) [Mass/Vol] Normal mg/dL Normal [facility] Urine hemoglobin detection b y automated test stripOrdered By: Christine Sanchez on 10-26-2022 Hemoglobin Auto test strip Ql (U) Negative Negative [facility] Urine leukocyte esterase det ection by automated test stripOrdered By: Christine Sanchez on 10-26-2022 Leukocyte esterase Auto test strip Ql (U) Negative Negative [facility] Urobilinogen Auto test strip (U) [Mass/Vol]Ordered By: Christine Sanchez on 10-26-2022 Urobilinogen (U) [Mass/Vol] Normal mg/dL Normal [facility] WBC Auto (Bld) [#/Vol]Ordere d By: Christine Sanchez on 10-26-2022 WBC (Bld) [#/Vol] 4.7 10*3/uL 4.1-10.5 [facility] pH Auto test strip (U)Ordere d By: Christine Sanchez on 10-26-2022 pH (U) 5.5 [pH] 5.0-9.[address] [facility] Automated erythrocytes count in urine sediment (number/area)Ordered By: Christine Sanchez on 07-21-2022 RBC Auto (Urine sed) [#/Area] 0-1 [HPF] 0-[address] [facility] Automated leukocytes count i n urine sediment (number/area)Ordered By: Christine Sanchez on 07-21-2022 WBC Auto (Urine sed) [#/Area] 0-1 [HPF] 0-[address] [facility] Basophils Auto (Bld) [#/Vol] Ordered By: Christine Sanchez on 07-21-2022 Basophils (Bld) [#/Vol] 0.0 10*3/uL 0.0-0.[address] [facility] Basophils/100 WBC Auto (Bld) Ordered By: Christine Sanchez on 07-21-2022 Basophils/100 WBC (Bld) 0.6 % . [facility] Bilirubin Test strip Ql (U)O rdered By: Christine Sanchez on 07-21-2022 Bilirubin Ql (U) Negative Negative [facility] Body fluid albumin measureme nt (mass/volume)Ordered By: Christine Sanchez on 07-21-2022 Albumin (Body fld) [Mass/Vol] 3.9 g/dL 3.2-5.[address] [facility] Color Auto (U)Ordered By: Marianna Arellano on 07-21-2022 Color (U) Yellow Yellow [facility] Creatinine and Glomerular fi ltration rate.predicted panel (S/P/Bld)Ordered By: Christine Sanchez on 07-21-2022 Creatinine [Mass/Vol] 0.91 mg/dL 0.64-1.27 [facility] Eosinophils Auto (Bld) [#/Vo l]Ordered By: Christine Sanchez on 07-21-2022 Eosinophils (Bld) [#/Vol] 0.1 10*3/uL 0.0-0.[address] [facility] Eosinophils/100 WBC Auto (Bl d)Ordered By: Christine Sanchez on 07-21-2022 Eosinophils/100 WBC (Bld) 1.6 % . [facility] Erythrocyte distribution wid th Auto (RBC) [Ratio]Ordered By: Christine Sanchez on 07-21-2022 Erythrocyte distribution width (RBC) [Ratio] 15.2 % 12.0-14.[address] [facility] Erythrocyte sedimentation ra te by Photometric methodOrdered By: Christine Sanchez on 07-21-2022 ESR Photometric method (Bld) [Velocity] 9 mm/hr 0-[address] [facility] Estimated glomerular filtrat ion rate (GFR) non- AmericanOrdered By: Christine Sanchez on 07-21-2022 GFR/1.73 sq M.predicted among non-blacks MDRD (S/P/Bld) [Vol rate/Area] > 60 mL/Min [facility] Globulin Calc (S) [Mass/Vol] Ordered By: Christine Sanchez on 07-21-2022 Globulin (S) [Mass/Vol] 2.1 g/dL [facility] Hematocrit Auto (Bld) [Volum e fraction]Ordered By: Christine Sanchez on 07-21-2022 Hematocrit (Bld) [Volume fraction] 45.4 % 38.8-50.[address] [facility] Hemoglobin [Mass/volume] in BloodOrdered By: Christine Sanchez on 07-21-2022 Hemoglobin (Bld) [Mass/Vol] 15.2 g/dL 13.0-17.[address] [facility] Ketones Auto test strip (U) [Mass/Vol]Ordered By: Christine Sanchez on 07-21-2022 Ketones (U) [Mass/Vol] Negative Negative [facility] - Hematology and Cell countsOrdered By: Christine Sanchez on 07-21-2022 Nucleated RBC/100 WBC (Bld) [Ratio] 0.1 % 0-0.[address] [facility] Laboratory - UrinalysisOrder ed By: Christine Sanchez on 07-21-2022 Hyaline casts LM Ql (Urine sed) 0-8 [LPF] 0-[address] [facility] Leukocytes [#/volume] in Blo od by Automated countOrdered By: Christine Sanchez on 07-21-2022 WBC (Bld) [#/Vol] 6.6 10*3/uL 4.5-11.0 [facility] Lymphocytes Auto (Bld) [#/Vo l]Ordered By: Christine Sanchez on 07-21-2022 Lymphocytes (Bld) [#/Vol] 0.8 10*3/uL 1.00-4.[address] [facility] Lymphocytes/100 WBC Auto (Bl d)Ordered By: Christine Sanchez on 07-21-2022 Lymphocytes/100 WBC (Bld) 11.5 % . [facility] MCH Auto (RBC) [Entitic mass ]Ordered By: Christine Sanchez on 07-21-2022 MCH (RBC) [Entitic mass] 30.3 pg 27.5-35.[address] [facility] MCHC Auto (RBC) [Mass/Vol]Or dered By: Christine Sanchez on 07-21-2022 MCHC (RBC) [Mass/Vol] 33.5 g/dL 32.5-35.6 [facility] MCV Auto (RBC) [Entitic vol] Ordered By: Christine Sanchez on 07-21-2022 MCV (RBC) [Entitic vol] 90.4 fL 83.5-[address] [facility] Monocytes Auto (Bld) [#/Vol] Ordered By: Christine Sanchez on 07-21-2022 Monocytes (Bld) [#/Vol] 0.9 10*3/uL 0.0-0.[address] [facility] Monocytes/100 WBC Auto (Bld) Ordered By: Christine Sanchez on 07-21-2022 Monocytes/100 WBC (Bld) 13.7 % . [facility] Neutrophils Auto (Bld) [#/Vo l]Ordered By: Christine Sanchez on 07-21-2022 Neutrophils (Bld) [#/Vol] 4.8 10*3/uL 1.8-7.[address] [facility] Neutrophils/100 WBC Auto (Bl d)Ordered By: Christine Sanchez on 07-21-2022 Neutrophils/100 WBC (Bld) 72.6 % . [facility] Nitrite Test strip Ql (U)Ord ered By: Christine Sanchez on 07-21-2022 Nitrite Ql (U) Negative Negative [facility] No Panel InformationOrdered By: Christine Sanchez on 07-21-2022 Estimated GFR () > 60 mL/Min [facility] Comment on above: GFR estimated refere nce range: According to KDOQI guidelines, <60 ml/min/1.73m2 is sufficient to diagnose a patient with chronic kidney disease. Pharmacy Creatinine Clearance (Chem N/A [facility] Total Complement (CH50) >60 U/mL >[address] [facility] Comment on above: Age Male Female [...] determine out of range values.Performed at: - Lab[address] [id number] Director: Richy Ardon PhD, Phone: [phone] Platelet mean volume Auto (B ld) [Entitic vol]Ordered By: Christine Sanchez on 07-21-2022 Platelet mean volume (Bld) [Entitic vol] 8.4 fL 6.6-10.[address] [facility] Platelets Auto (Bld) [#/Vol] Ordered By: Christine Sanchez on 07-21-2022 Platelets (Bld) [#/Vol] 185 10*3/uL 150-[address] [facility] Protein Auto test strip (U) [Mass/Vol]Ordered By: Christine Sanchez on 07-21-2022 Protein (U) [Mass/Vol] Negative Negative [facility] Protein [Mass/volume] in Ser um or PlasmaOrdered By: Christine Sanchez on 07-21-2022 Protein [Mass/Vol] 6.0 g/dL 6.1-7.9 [facility] RBC Auto (Bld) [#/Vol]Ordere d By: Christine Sanchez on 07-21-2022 RBC (Bld) [#/Vol] 5.03 10*6/uL 3.90-5.60 [facility] Serum or plasma alanine calvert otransferase measurement without P-5'-P (enzymatic activiOrdered By: Christine Sanchez on 07-21-2022 ALT No additional P-5'-P [Catalytic activity/Vol] 35 U/L 10-[address] [facility] Serum or plasma albumin/glob ulin mass ratioOrdered By: Christine Sanchez on 07-21-2022 Albumin/Globulin [Mass ratio] 1.9 {ratio} [facility] Serum or plasma alkaline kelsie sphatase measurement (enzymatic activity/volume)Ordered By: Christine Sanchez on 07-21-2022 ALP [Catalytic activity/Vol] 81 U/L 32-[address] [facility] Serum or plasma anion gap de terminationOrdered By: Christine Sanchez on 07-21-2022 Anion gap [Moles/Vol] 13.7 mmol/L 6.0-15.0 [facility] Serum or plasma aspartate am inotransferase measurement (enzymatic activity/volume)Ordered By: Christine Sanchez on 07-21-2022 AST [Catalytic activity/Vol] 20 U/L 10-[address] [facility] Serum or plasma calcium ophelia urement (mass/volume)Ordered By: Christine Sanchez on 07-21-2022 Calcium [Mass/Vol] 9.5 mg/dL 8.2-10.2 [facility] Serum or plasma chloride arelis surement (moles/volume)Ordered By: Christine Sanchez on 07-21-2022 Chloride [Moles/Vol] 103 mmol/L 95-114 [facility] Serum or plasma complement C 3 measurement (mass/volume)Ordered By: Christine Sanchez on 07-21-2022 Complement C3 [Mass/Vol] 145 mg/dL 82-[address] [facility] Comment on above: Performed at: - [address] [id number] Director: Richy Ardon PhD, Phone: [phone] Serum or plasma complement C 4 measurement (mass/volume)Ordered By: Christine Sanchez on 07-21-2022 Complement C4 [Mass/Vol] 23 mg/dL 12-[address] [facility] Serum or plasma glucose ophelia urement (mass/volume)Ordered By: Christine Sanchez on 07-21-2022 Glucose [Mass/Vol] 83 mg/dL 70-100 [facility] Comment on above: ADA recommended refe rence rangeRandom Glucose Reference Range is dependent on time and content of last meal. Glucose of more than 200 mg/dL in a nonstressed, ambulatory subject supports the diagnosis of Diabetes Mellitus. Serum or plasma potassium me asurement (moles/volume)Ordered By: Christine Sanchez on 07-21-2022 Potassium [Moles/Vol] 4.1 mmol/L 3.5-5.1 [facility] Serum or plasma sodium measu rement (moles/volume)Ordered By: Christine Sanchez on 07-21-2022 Sodium [Moles/Vol] 135 mmol/L 136-146 [facility] Serum or plasma total biliru bin measurement (mass/volume)Ordered By: Christine Sanchez on 07-21-2022 Bilirubin [Mass/Vol] 0.9 mg/dL 0.3-1.2 [facility] Serum or plasma total carbon dioxide measurement (moles/volume)Ordered By: Christine Sanchez on 07-21-2022 CO2 [Moles/Vol] 22.4 mmol/L 22.0-30.0 [facility] Serum or plasma urea nitroge n measurement (mass/volume)Ordered By: Christine Sanchez on 07-21-2022 Urea nitrogen [Mass/Vol] 15 mg/dL [address] [facility] Specific gravity Auto test s trip (U) [Rel density]Ordered By: Christine Sanchez on 07-21-2022 Specific gravity (U) [Rel density] 1.020 1.001-1.[address] [facility] Squamous epithelial cells de tection in urine sediment by light microscopyOrdered By: Christine Sanchez on 07-21-2022 Epithelial cells.squamous LM Ql (Urine sed) None seen [HPF] 0-[address] [facility] Urine bacteria detection by automated methodOrdered By: Christine Sanchez on 07-21-2022 Bacteria Auto Ql (U) None seen None Seen [facility] Urine clarity by refractomet ry automatedOrdered By: Christine Sanchez on 07-21-2022 Clarity Refractometry automated (U) Clear Clear [facility] Urine glucose measurement by automated test strip (mass/volume)Ordered By: Christine Sanchez on 07-21-2022 Glucose Auto test strip (U) [Mass/Vol] Normal mg/dL Normal [facility] Urine hemoglobin detection b y automated test stripOrdered By: Christine Sanchez on 07-21-2022 Hemoglobin Auto test strip Ql (U) Negative Negative [facility] Urine leukocyte esterase det ection by automated test stripOrdered By: Christine Sanchez on 07-21-2022 Leukocyte esterase Auto test strip Ql (U) Negative Negative [facility] Urobilinogen Auto test strip (U) [Mass/Vol]Ordered By: Christine Sanchez on 07-21-2022 Urobilinogen (U) [Mass/Vol] Normal mg/dL Normal [facility] pH Auto test strip (U)Ordere d By: Christine Sanchez on 07-21-2022 pH (U) 6.0 [pH] 5.0-9.[address] [facility] Automated erythrocytes count in urine sediment (number/area)Ordered By: Romel Davis on 04-14-2022 RBC Auto (Urine sed) [#/Area] 5-9 [HPF] [facility] Automated leukocytes count i n urine sediment (number/area)Ordered By: Romel Davis on 04-14-2022 WBC Auto (Urine sed) [#/Area] 0-1 [HPF] [facility] Basophils Auto (Bld) [#/Vol] Ordered By: Romel Ryan on 04-14-2022 Basophils (Bld) [#/Vol] 0.0 10*3/uL 0.0-0.[address] [facility] Basophils/100 WBC Auto (Bld) Ordered By: Romel Davis on 04-14-2022 Basophils/100 WBC (Bld) 0.6 % [facility] Bilirubin Test strip Ql (U)O rdered By: Romel Davis on 04-14-2022 Bilirubin Ql (U) Negative Negative [facility] Blood hemoglobin measurement (mass/volume)Ordered By: Romel Davis on 04-14-2022 Hemoglobin (Bld) [Mass/Vol] 15.4 g/dL 13.0-17.[address] [facility] Blood leukocytes automated c ount (number/volume)Ordered By: Romel Davis on 04-14-2022 WBC (Bld) [#/Vol] 5.8 10*3/uL 4.5-11.0 [facility] Body fluid albumin measureme nt (mass/volume)Ordered By: Romel Davis on 04-14-2022 Albumin (Body fld) [Mass/Vol] 3.9 g/dL 3.2-5.[address] [facility] Cholesterol [Mass/volume] in Serum or PlasmaOrdered By: Sascha Sutton on 04-14-2022 Cholesterol [Mass/Vol] 125 mg/dL 140-200 [facility] Comment on above: Chol less than 200 m g/dl low risk Chol 201-239 mg/dl borderline risk Chol 240 mg/dl and greater high risk Cholesterol in LDL Calc [Mas s/Vol]Ordered By: Sascha Sutton on 04-14-2022 Cholesterol in LDL [Mass/Vol] 69 mg/dL 0-[address] [facility] Comment on above: LDL ATP III CLASSIFI CATION LDL less than 100 mg/dL Optimal LDL 100-129 mg/dL Near or above optimal LDL 130-159 mg/dL Borderline high LDL 160-189 mg/dL High LDL greater than 189 mg/dL Very high Cholesterol in VLDL Calc [Bridgett ss/Vol]Ordered By: Saschajennifer Mariecierra on 04-14-2022 Cholesterol in VLDL [Mass/Vol] 15 mg/dL [facility] Color Auto (U)Ordered By: Bridgett nasreen Ryan on 04-14-2022 Color (U) Yellow Yellow [facility] Creatinine and Glomerular fi ltration rate.predicted panel (S/P/Bld)Ordered By: Romel Davis on 04-14-2022 Creatinine [Mass/Vol] 0.86 mg/dL 0.64-1.27 [facility] Eosinophils Auto (Bld) [#/Vo l]Ordered By: Romel Davis on 04-14-2022 Eosinophils (Bld) [#/Vol] 0.1 10*3/uL 0.0-0.[address] [facility] Eosinophils/100 WBC Auto (Bl d)Ordered By: Romel Davis on 04-14-2022 Eosinophils/100 WBC (Bld) 1.5 % [facility] Erythrocyte distribution wid th Auto (RBC) [Ratio]Ordered By: Romel Davis on 04-14-2022 Erythrocyte distribution width (RBC) [Ratio] 14.6 % 12.0-14.[address] [facility] Erythrocyte sedimentation ra te by Photometric methodOrdered By: Romel Davis on 04-14-2022 ESR Photometric method (Bld) [Velocity] 5 mm/hr 0-[address] [facility] Estimated glomerular filtrat ion rate (GFR) non- AmericanOrdered By: Romel Davis on 04-14-2022 GFR/1.73 sq M.predicted among non-blacks MDRD (S/P/Bld) [Vol rate/Area] > 60 mL/Min [facility] Globulin Calc (S) [Mass/Vol] Ordered By: Romel Davis on 04-14-2022 Globulin (S) [Mass/Vol] 2.3 g/dL [facility] Hematocrit Auto (Bld) [Volum e fraction]Ordered By: Romel Davis on 04-14-2022 Hematocrit (Bld) [Volume fraction] 45.0 % 38.8-50.[address] [facility] Ketones Auto test strip (U) [Mass/Vol]Ordered By: Romel Davis on 04-14-2022 Ketones (U) [Mass/Vol] Trace Negative [facility] Laboratory - Hematology and Cell countsOrdered By: Romel Davis on 04-14-2022 Nucleated RBC/100 WBC (Bld) [Ratio] 0.1 % 0-0.[address] [facility] - UrinalysisOrder ed By: Romel Davis on 04-14-2022 Hyaline casts LM Ql (Urine sed) 0-8 [LPF] [facility] Lymphocytes Auto (Bld) [#/Vo l]Ordered By: Romel Davis on 04-14-2022 Lymphocytes (Bld) [#/Vol] 0.6 10*3/uL 1.00-4.[address] [facility] Lymphocytes/100 WBC Auto (Bl d)Ordered By: Romel Davis on 04-14-2022 Lymphocytes/100 WBC (Bld) 10.9 % [facility] MCH Auto (RBC) [Entitic mass ]Ordered By: Romel Davis on 04-14-2022 MCH (RBC) [Entitic mass] 30.5 pg 27.5-35.[address] [facility] MCHC Auto (RBC) [Mass/Vol]Or dered By: Romel Davis on 04-14-2022 MCHC (RBC) [Mass/Vol] 34.2 g/dL 32.5-35.6 [facility] MCV Auto (RBC) [Entitic vol] Ordered By: Romel Davis on 04-14-2022 MCV (RBC) [Entitic vol] 89.3 fL 83.5-[address] [facility] Monocytes Auto (Bld) [#/Vol] Ordered By: Romel Davis on 04-14-2022 Monocytes (Bld) [#/Vol] 0.7 10*3/uL 0.0-0.[address] [facility] Monocytes/100 WBC Auto (Bld) Ordered By: Romel Davis on 04-14-2022 Monocytes/100 WBC (Bld) 12.2 % [facility] Neutrophils Auto (Bld) [#/Vo l]Ordered By: Romel Davis on 05-25-2022 Neutrophils (Bld) [#/Vol] 4.4 10*3/uL 1.8-7.[address] [facility] Neutrophils/100 WBC Auto (Bl d)Ordered By: Romel Davis on 04-14-2022 Neutrophils/100 WBC (Bld) 74.8 % [facility] Nitrite Test strip Ql (U)Ord ered By: Romel Davis on 04-14-2022 Nitrite Ql (U) Negative Negative [facility] No Panel InformationOrdered By: Romel Davis on 04-14-2022 Estimated GFR () > 60 mL/Min [facility] Comment on above: GFR estimated refere nce range: According to KDOQI guidelines, <60 ml/min/1.73m2 is sufficient to diagnose a patient with chronic kidney disease. Pharmacy Creatinine Clearance (Chem N/A [facility] No Panel InformationOrdered By: Sascha Sutton on 04-14-2022 Prostate Specific Antigen Screen 1.930 ng/mL 0.000-4.[address] [facility] Platelet mean volume Auto (B ld) [Entitic vol]Ordered By: Romel Davis on 04-14-2022 Platelet mean volume (Bld) [Entitic vol] 8.8 fL 6.6-10.[address] [facility] Platelets Auto (Bld) [#/Vol] Ordered By: Romel Davis on 04-14-2022 Platelets (Bld) [#/Vol] 181 10*3/uL 150-[address] [facility] Protein Auto test strip (U) [Mass/Vol]Ordered By: Romel Davis on 04-14-2022 Protein (U) [Mass/Vol] Trace mg/dL Negative F [facility] Protein [Mass/volume] in Ser um or PlasmaOrdered By: Romel Davis on 04-14-2022 Protein [Mass/Vol] 6.2 g/dL 6.1-7.9 [facility] RBC Auto (Bld) [#/Vol]Ordere d By: Romel Davis on 04-14-2022 RBC (Bld) [#/Vol] 5.03 10*6/uL 3.90-5.60 [facility] Serum or plasma alanine calvert otransferase measurement without P-5'-P (enzymatic activiOrdered By: Romel Davis on 04-14-2022 ALT No additional P-5'-P [Catalytic activity/Vol] 27 U/L 10-[address] [facility] Serum or plasma albumin/glob ulin mass ratioOrdered By: Romel Davis on 04-14-2022 Albumin/Globulin [Mass ratio] 1.7 {ratio} [facility] Serum or plasma alkaline kelsie sphatase measurement (enzymatic activity/volume)Ordered By: Romel Davis on 04-14-2022 ALP [Catalytic activity/Vol] 77 U/L 32-[address] [facility] Serum or plasma aspartate am inotransferase measurement (enzymatic activity/volume)Ordered By: Romel Davis on 04-14-2022 AST [Catalytic activity/Vol] 20 U/L 10-[address] [facility] Serum or plasma calcium ophelia urement (mass/volume)Ordered By: Romel Davis on 04-14-2022 Calcium [Mass/Vol] 9.0 mg/dL 8.2-10.2 [facility] Serum or plasma chloride arelis surement (moles/volume)Ordered By: Romel Davis on 04-14-2022 Chloride [Moles/Vol] 104 mmol/L 95-114 [facility] Serum or plasma glucose ophelia urement (mass/volume)Ordered By: Romel Davis on 04-14-2022 Glucose [Mass/Vol] 110 mg/dL 70-100 [facility] Comment on above: ADA recommended refe rence range Random Glucose Reference Range is dependent on time and content of last meal. Glucose of more than 200 mg/dL in a nonstressed, ambulatory subject supports the diagnosis of Diabetes Mellitus. Serum or plasma high density lipoprotein (HDL) cholesterol measurementOrdered By: Sascha Sutton on 04-14-2022 Cholesterol in HDL [Mass/Vol] 41 mg/dL 29-[address] [facility] Comment on above: HDL CHOL ATP-III CLA SSIFICATION Cardiovascular Risk HDL > or equal to 60 mg/dL LOW HDL < 40 mg/dL HIGH Serum or plasma potassium me asurement (moles/volume)Ordered By: Romel Davis on 04-14-2022 Potassium [Moles/Vol] 3.9 mmol/L 3.5-5.1 [facility] [facility] Serum or plasma sodium measu rement (moles/volume)Ordered By: Romel Davis on 04-14-2022 Sodium [Moles/Vol] 136 mmol/L 136-146 [facility] Serum or plasma total biliru bin measurement (mass/volume)Ordered By: Romel Davis on 04-14-2022 Bilirubin [Mass/Vol] 0.9 mg/dL 0.3-1.2 [facility] Serum or plasma total carbon dioxide measurement (moles/volume)Ordered By: Romel Davis on 04-14-2022 CO2 [Moles/Vol] 21.2 mmol/L 22.0-30.0 [facility] Serum or plasma total choles terol/high density lipoprotein (HDL) cholesterol mass ratOrdered By: Sascha Sutton on 04-14-2022 Cholesterol.total/Chol esterol in HDL [Mass ratio] 3.0 {ratio} [facility] Serum or plasma urea nitroge n measurement (mass/volume)Ordered By: Romel Davis on 04-14-2022 Urea nitrogen [Mass/Vol] 16 mg/dL 9-[address] [facility] Specific gravity Auto test s trip (U) [Rel density]Ordered By: Romel Davis on 04-14-2022 Specific gravity (U) [Rel density] 1.025 1.001-1.[address] [facility] Squamous epithelial cells de tection in urine sediment by light microscopyOrdered By: Romel Davis on 04-14-2022 Epithelial cells.squamous LM Ql (Urine sed) 0-1 [HPF] [facility] Triglyceride [Mass/volume] i n Serum or PlasmaOrdered By: Sascha Sutton on 04-14-2022 Triglyceride [Mass/Vol] 75 mg/dL 35-[address] [facility] Comment on above: TRIG ATP III CLASSIF ICATION TRIG less than 150 mg/dL Normal TRIG 150-199 mg/dL Borderline high TRIG 200-500 mg/dL High TRIG greater than 500 mg/dL Very high Standard traceable to the Center for Disease Conrtrol and Prevention (CDC) test method. Urine bacteria detection by automated methodOrdered By: Romel Daivs on 04-14-2022 Bacteria Auto Ql (U) None seen None Seen [facility] Urine clarity by refractomet ry automatedOrdered By: Romel Davis on 04-14-2022 Clarity Refractometry automated (U) Turbid Clear [facility] Urine glucose measurement by automated test strip (mass/volume)Ordered By: Romel Davis on 04-14-2022 Glucose Auto test strip (U) [Mass/Vol] Normal mg/dL Normal [facility] Urine hemoglobin detection b y automated test stripOrdered By: Romel Davis on 04-14-2022 Hemoglobin Auto test strip Ql (U) Negative Negative [facility] Urine leukocyte esterase det ection by automated test stripOrdered By: Romel Davis on 04-14-2022 Leukocyte esterase Auto test strip Ql (U) Negative Negative [facility] Urobilinogen Auto test strip (U) [Mass/Vol]Ordered By: Romel Davis on 04-14-2022 Urobilinogen (U) [Mass/Vol] Normal mg/dL Normal [facility] pH Auto test strip (U)Ordere d By: Romel Davis on 04-14-2022 pH (U) 5.5 [pH] 5.0-9.[address] [facility] CT CSPINE WO CONon 2 CT [...] PRIMO GALE Date: 2022-04-09 17:03 Normal [facility] CT HEAD WO CONon 04-09-2022 CT HEAD [...] PRIMO GALE Date: 2022-04-09 17:00 Normal [facility] CT TSPINE WO CONon CT TSPINE WO [...] PRIMO GALE Date: 2022-04-09 17:10 Normal [facility] CT ABDOMEN AND PELVIS W/O CO NTRASTon 04-25-2018 CT ABDOMEN AND PELVIS W/O CONTRAST Performed at [facility] APPROVED BY: JOSE CRUZ HOLLEY MD [...] the detailed report for complete information. Normal [facility] Comprehensive Panelon 2017 Albumin 4.3 g/dL Normal 3.4-5.0 [facility] Comment on above: Performed By: #### S P14 ####[place] [address] Alkaline phosphatase (ALP) 87 U/L Normal 46-116 [facility] Comment on above: Performed By: #### S P14 ####[place] [address] ALT-SGPT Blood 38 U/L Normal 12-78 [facility] Comment on above: Performed By: #### S P14 ####[place] [address] Anion gap 13 mmol/L Normal 8-16 [facility] Comment on above: Performed By: #### S P14 ####[place] [address] AST-SGOT Blood 22 U/L Normal 15-46 [facility] Comment on above: Performed By: #### S P14 ####[place] [address] Bilirubin Ql (U) 0.9 mg/dL Normal 0.2-1.0 [facility] Comment on above: Performed By: #### S P14 ####[place] [address] BUN (urea nitrogen) 20 mg/dL High 7-18 [facility] Comment on above: Performed By: #### S P14 ####[address], [place] [address] Calcium 9.0 mg/dL Normal 8.5-10.1 [facility] Comment on above: Performed By: #### S P14 ####[facility] [place] [address] Chloride 104 mmol/L Normal 98-107 [facility] Comment on above: Performed By: #### S P14 ####[facility] [place] [address] CO2 24 mmol/L Normal 21-32 [facility] Comment on above: Performed By: #### S P14 ####[place] [address] Creatinine 0.93 mg/dL Normal 0.67-1.17 [facility] Comment on above: Performed By: #### S P14 ####[place] [address] Glucose mass conc 142 mg/dL High 70-99 [facility] Comment on above: Performed By: #### S P14 ####[place] [address] Potassium molar conc 3.8 mmol/L Normal 3.5-5.1 [facility] Comment on above: Performed By: #### S P14 ####[place] [address] Protein 7.4 g/dL Normal 6.4-8.2 [facility] Comment on above: Performed By: #### S P14 ####[place] [address] Sodium 137 mmol/L Normal 136-145 [facility] Comment on above: Performed By: #### S P14 ####[place] [address] ED NOTEon 04-25-2018 ED NOTE HNO ID: [id number] Author: Minerva GarciaRn) KATHE Zepeda Service: Emergency Medicine Author Type: Registered Nurse Type: ED Notes Filed: 04/25/2018 5:51 AM Note Text: Voided 150 cc light yellow urine which was strained: no stone noted Normal [facility] ED NOTE HNO ID: [id number] Author: Minerva (Rn) KATHE Zepeda Service: Emergency Medicine Author Type: Registered Nurse Type: ED Notes Filed: 04/25/2018 3:34 AM Note Text: Patient returned to the Emergency Department. Normal [facility] ED NOTE HNO ID: [id number] Author: Valentine (Rn) Viral RN Service: Emergency Medicine Author Type: Registered Nurse Type: ED Notes Filed: 04/25/2018 3:30 AM Note Text: Patient transported to ct/cart Normal [facility] ED NOTE HNO ID: [id number] Author: Valentine (Rn) Viral RN Service: Emergency Medicine Author Type: Registered Nurse Type: ED Notes Filed: 04/25/2018 3:21 AM Note Text: Warm b lanket given, labs drawn with IV start AND sent, medicated for paIN PER ORDER [facility] ED NOTE HNO ID: [id number] thor: Minerva (Rn) DIEGO Zepedaervice: Emergency MedicineAuthor Type: Registered NurseType: ED NotesFiled: 04/25/2018 2:55 AMNote Text:c/o pain left lower abdomen that began around 12:30 AM-- pain woke pt upand is assoc with nausea. Vomited small amt food particles upon arrival toed [facility] ED PROV NOTEon 04-25-2018 ED PROV NOTE HNO ID: [id number] thor: STEPHANIE Gillervice: Emergency MedicineAuthor Type: PhysicianType: ED Provider NotesFiled: 04/25/2018 6:48 AMNote Text:ED Provider NotePatient Name: Valentin TorreMRN: [id number] DATE: 04/25/18HistoryPatient presents with:Abdominal PainPatient is a [...] 10.24 (*) 1.35 - 7.21 thou/cmm Abs. [place] 0.84 (*) 0.19 - 0.80 thou/cmm All [...] up withurology as an outpatient. [place] and he will follow-upwith the urologist there. He was discharged home in improved condition.He is happy with his care and comfortable with the plan.ED Course / Clinical ImpressionClinical Impressions as of Apr 25 647Ureteral calculus, leftHydronephrosis with urinary obstruction due to renal calculusPlanSIGNATURE: Jose De Jesus Gill MD/04/07 0648 Normal [facility] Hemogram/Diffon 04-25-2018 Abs. Baso 0.02 thou/cmm Normal 0.00-0.08 [facility] Comment on above: Performed By: #### S CBCD ####[facility] [place], [place] [address] Abs. [place] 0.84 thou/cmm High 0.19-0.80 [facility] Comment on above: Performed By: #### S CBCD ####[address] [address] Abs. Neut (ANC) 10.24 thou/cmm High 1.35-7.21 [facility] Comment on above: Performed By: #### S CBCD ####[address] [address] Basophils/100 WBC Auto (Bld) 0.2 % Normal [facility] Comment on above: Performed By: #### S CBCD ####[address] [address] Eosinophils 0.04 thou/cmm Normal 0.00-0.36 [facility] Comment on above: Performed By: #### S CBCD ####[address] [address] Eosinophils/100 leukocytes 0.3 % Normal [facility] Comment on above: Performed By: #### S CBCD ####[address] [address] Erythrocyte distribution width Auto Ratio (RBC) 13.7 % Normal 11.8-14.5 [facility] Comment on above: Performed By: #### S CBCD ####[address] [address] Erythrocytes (RBC) 5.26 mil/cmm Normal 4.22-5.80 [facility] Comment on above: Performed By: #### S CBCD ####[facility] [place], [place] [address] Hematocrit (HCT) 47.0 % Normal 39.6-50.7 [facility] Comment on above: Performed By: #### S CBCD ####[address] [address] Hemoglobin mass conc (Bld) 16.2 g/dL Normal 13.2-17.4 [facility] Comment on above: Performed By: #### S CBCD ####[address] [address] Lymphocytes 0.83 thou/cmm Normal 0.68-2.93 [facility] Comment on above: Performed By: #### S CBCD ####[address] [address] Lymphocytes/100 leukocytes 6.9 % Normal [facility] Comment on above: Performed By: #### S CBCD ####[address] [address] MCH 30.8 pg Normal 27.4-32.8 [facility] Comment on above: Performed By: #### S CBCD ####[address] [address] MCHC mass conc (RBC) 34.5 % Normal 31.9-35.6 [facility] Comment on above: Performed By: #### S CBCD ####[place] [address] MCV 89.4 fL Normal 81.8-95.6 [facility] Comment on above: Performed By: #### S CBCD ####[address] [address] Monocytes/100 leukocytes 7.0 % Normal [facility] Comment on above: Performed By: #### S CBCD ####[address] [address] Platelet mean volume (PMV) 10.1 fL Normal 8.8-12.1 [facility] Comment on above: Performed By: #### S CBCD ####[address] [address] Platelets 169 thou/cmm Normal 150-370 [facility] Comment on above: Performed By: #### S CBCD ####[address] [address] Seg Neutrophil 85.6 % Normal [facility] Comment on above: Performed By: #### S CBCD ####[address] [address] WBC (Leukocytes) 12.0 thou/cmm High 4.4-9.7 [facility] Comment on above: Performed By: #### S CBCD ####[address] [address] Lipase Bloodon 04-25-2018 Lipase Blood 155 U/L Normal 73-393 [facility] Comment on above: Performed By: #### S LIP ####[place] [address] MDRD eGFRon 04-25-2018 eGFR (non-black) mL/min/{1.73_m2} Normal >60mL/m in/ 1.73m2 [facility] Comment on above: Result Comment: If t he patient is , multiply the result by 1.210. Performed By: #### S GFR ####[address] [address] Urinalysis Routineon 018 Bilirubin Urine Negative Normal Negative [facility] Comment on above: Performed By: #### S URIN ####[address] [address] Ep Cells Urine NONE Normal 0-5 [facility] Comment on above: Performed By: #### S URIN ####[address] [address] Hemoglobin,Urine TRACE-INTACT Abnormal Negative [facility] Comment on above: Performed By: #### S URIN ####[address] [address] Ketone Urine 15 mg/dL Abnormal Negative [facility] Comment on above: Performed By: #### S URIN ####[facility] [place], [place] [address] Nitrites Urine Negative Normal Negative [facility] Comment on above: Performed By: #### S URIN ####[facility] [place], [place] [address] Protein Urine Negative Normal Negative [facility] Comment on above: Performed By: #### S URIN ####[facility] [place] [address] Specific [place], Ur 1.020 Normal 1.005-1 .03 0 [facility] Comment on above: Performed By: #### S URIN ####[address] [address] Urine, appearance CLEAR Normal [facility] Comment on above: Performed By: #### S URIN ####[address] [address] Urine, bacteria in sediment NONE Normal None [facility] Comment on above: Performed By: #### S URIN ####[address] [address] Urine, color YELLOW Normal [facility] Comment on above: Performed By: #### S URIN ####[address] [address] Urine, erythrocytes in sediment by area 7-12 Normal 0-3 [facility] Comment on above: Performed By: #### S URIN ####[address] [address] Urine, glucose presence Negative Normal Negative [facility] Comment on above: Performed By: #### S URIN ####[address] [address] Urine, leukocytes in sedmiment 0-2 Normal 0-5 [facility] Comment on above: Performed By: #### S URIN ####[place] [address] Urine, pH 7.0 [pH] Normal 5.0-8.0 [facility] Comment on above: Performed By: #### S URIN ####[address], [place] [address] Urobilinogen,Ur 0.2 EU/dL Normal 0.0-1.0 [facility] Comment on above: Performed By: #### S URIN ####[facility] [place], [place] [address] WBC (Leukocytes) Negative Normal Negative [facility] Comment on above: Performed By: #### S URIN ####[facility] [place], [place] [address] Vital Signs Date Time Vital Sign Value Performing Clinician Facility 07-24-2025 11:17-0400 Diastolic blood pressure 71 mm[Hg] Sascha Furlong DO Work Phone: [facility] 07-24-2025 11:17-0400 Heart rate 88 /min Sascha Furlong DO Work Phone: [facility] 07-24-2025 11:17-0400 Systolic blood pressure 168 mm[Hg] Sascha Furlong DO Work Phone: [facility] 07-24-2025 10:04-0400 Body height 170.18 cm Sascha Furlong DO Work Phone: [facility] 07-24-2025 10:04-0400 Body weight 97.06 kg Sascha Furlong DO Work Phone: [facility] 07-17-2025 13:46-0400 Body height 172.7 cm Shabnam Connell [employer]BBLE PLACER Work Phone: [facility] 07-17-2025 13:46-0400 Body mass index (BMI) [Ratio] 33.75 kg/m2 Shabnam Connell [employer]ACER Work Phone: [facility] 07-17-2025 13:46-0400 Body weight 100.7 kg Shabnam Connell RUBBLE PLACER Work Phone: [facility] 07-17-2025 13:46-0400 Diastolic blood pressure 80 mm[Hg] Shabnam Connell RUBBLE PLACER Work Phone: [facility] 07-17-2025 13:46-0400 Systolic blood pressure 160 mm[Hg] Shabnam Cristinajairocristopher RUBBLE PLACER Work Phone: [facility] 06-27-2025 11:45-0400 Body height 170.2 cm Kali Conklin DPM Work Phone: [facility] 06-27-2025 11:45-0400 Body mass index (BMI) [Ratio] 34.14 kg/m2 Kali Conklin DPM Work Phone: [facility] 06-27-2025 11:45-0400 Body weight 98.88 kg Kali Conklin DPM Work Phone: [facility] 06-27-2025 11:45-0400 Respiratory rate 18 /min Kali Conklin DPM Work Phone: [facility] 06-20-2025 09:38-0400 Diastolic blood pressure 74 mm[Hg] Alfonso Trujillo DO Work Phone: [facility] 06-20-2025 09:38-0400 Systolic blood pressure 122 mm[Hg] Alfonso Trujillo DO Work Phone: [facility] 06-20-2025 09:37-0400 Body height 170.2 cm Alfonso Trujillo DO Work Phone: [facility] 06-20-2025 09:37-0400 Body mass index (BMI) [Ratio] 34.74 kg/m2 Alfonso Trujillo DO Work Phone: [facility] 06-20-2025 09:37-0400 Body weight 100.61 kg Alfonso Trujillo DO Work Phone: [facility] 06-20-2025 09:37-0400 Heart rate 69 /min Alfonso Trujillo DO Work Phone: [facility] 06-11-2025 13:57-0400 Body height 170.2 cm Myra Orlando APRN-ENGINEERING PROGRAM MANAGER [facility] 06-11-2025 13:57-0400 Body mass index (BMI) [Ratio] 34.61 kg/m2 Myra Daiglezer GUEST EXPERIENCE SPECIALIST-ENGINEERING PROGRAM MANAGER [facility] 06-11-2025 13:57-0400 Body temperature 98.8 [degF] Myra Rgotzer GUEST EXPERIENCE SPECIALIST-ENGINEERING PROGRAM MANAGER [facility] 06-11-2025 13:57-0400 Body weight 100.25 kg Myragalina Daiglezer GUEST EXPERIENCE SPECIALIST-ENGINEERING PROGRAM MANAGER [facility] 06-11-2025 13:57-0400 Diastolic blood pressure 68 mm[Hg] Myra Oxanazer GUEST EXPERIENCE SPECIALIST-ENGINEERING PROGRAM MANAGER [facility] Phone[facility] 06-11-2025 13:57-0400 Heart rate 73 /min Myra Rgotzer GUEST EXPERIENCE SPECIALIST-ENGINEERING PROGRAM MANAGER Work Phone: [facility] 06-11-2025 13:57-0400 Respiratory rate 20 /min Myra Rgotzer GUEST EXPERIENCE SPECIALIST-ENGINEERING PROGRAM MANAGER [facility] 06-11-2025 13:57-0400 SaO2% (BldA) [Mass fraction] 96 % Myra Diezotzer GUEST EXPERIENCE SPECIALIST-ENGINEERING PROGRAM MANAGER Work Phone: [facility] 06-11-2025 13:57-0400 Systolic blood pressure 110 mm[Hg] Myra Daiglezer GUEST EXPERIENCE SPECIALIST-ENGINEERING PROGRAM MANAGER Work Phone: [facility] 05-28-2025 14:42-0400 Body height 170.2 cm Sascha Furlong DO [facility] 05-28-2025 14:42-0400 Body mass index (BMI) [Ratio] 35.01 kg/m2 Sascha Furlong DO [facility] 05-28-2025 14:42-0400 Body temperature 97.5 [degF] Sascha Furlong DO Work Phone: [facility] 05-28-2025 14:42-0400 Body weight 101.42 kg Sascha Furlong DO Work Phone: [facility] 05-28-2025 14:42-0400 Diastolic blood pressure 60 mm[Hg] Sascha Furlong DO Work Phone: [facility] 05-28-2025 14:42-0400 Heart rate 72 /min Sascha Furlong DO Work Phone: [facility] 05-28-2025 14:42-0400 Respiratory rate 20 /min Sascha Furlong DO Work Phone: [facility] 05-28-2025 14:42-0400 SaO2% (BldA) [Mass fraction] 96 % Sascha Furlong DO Work Phone: [facility] 05-28-2025 14:42-0400 Systolic blood pressure 118 mm[Hg] Sascha Furlong DO Work Phone: [facility] 05-15-2025 10:25-0400 Body height 170.2 cm Shabnam Connell RUBBLE PLACER Work Phone: [facility] 05-15-2025 10:25-0400 Body mass index (BMI) [Ratio] 34.24 kg/m2 Shabnam Connell RUBBLE PLACER Work Phone: [facility] 05-15-2025 10:25-0400 Body weight 99.16 kg Shabnam Connell RUBBLE PLACER Work Phone: [facility] 05-15-2025 10:25-0400 Diastolic blood pressure 82 mm[Hg] Shabnam Connell RUBBLE PLACER Work Phone: [facility] 05-15-2025 10:25-0400 Systolic blood pressure 128 mm[Hg] Shabnam Connell RUBBLE PLACER Work Phone: [facility] 05-07-2025 09:30-0400 Body height 170.2 cm Sascha Furlong DO Work Phone: [facility] 05-07-2025 09:30-0400 Body mass index (BMI) [Ratio] 34.46 kg/m2 Sascha Furlong DO Work Phone: [facility] 05-07-2025 09:30-0400 Body weight 99.79 kg Sascha Furlong DO Work Phone: [facility] 05-07-2025 09:30-0400 Diastolic blood pressure 70 mm[Hg] Sascha Furlong DO Work Phone: [facility] 05-07-2025 09:30-0400 Systolic blood pressure 126 mm[Hg] Sascha Furlong DO Work Phone: [facility] 04-16-2025 16:35-0400 Body height 170.2 cm Sascha Furlong DO Work Phone: [facility] 04-16-2025 16:35-0400 Body mass index (BMI) [Ratio] 33.16 kg/m2 Sascha Furlong DO Work Phone: [facility] 04-16-2025 16:35-0400 Body temperature 97.39 [degF] Sascha Furlong DO Work Phone: [facility] 04-16-2025 16:35-0400 Body weight 96.07 kg Sascha Furlong DO Work Phone: [facility] 04-16-2025 16:35-0400 Diastolic blood pressure 70 mm[Hg] Sascha Furlong DO Work Phone: [facility] 04-16-2025 16:35-0400 Heart rate 86 /min Sascha Furlong DO Work Phone: [facility] 04-16-2025 16:35-0400 Respiratory rate 20 /min Sascha Furlong DO Work Phone: [facility] 04-16-2025 16:35-0400 SaO2% (BldA) [Mass fraction] 98 % Sascha Furlong DO Work Phone: [facility] 04-16-2025 16:35-0400 Systolic blood pressure 126 mm[Hg] Sascha Furlong DO Work Phone: [facility] 04-09-2025 16:02-0400 Body height 172.7 cm Kali Conklin DPM Work Phone: [facility] 04-09-2025 16:02-0400 Body mass index (BMI) [Ratio] 32.54 kg/m2 Kali Conklin DPM Work Phone: [facility] 04-09-2025 16:02-0400 Body weight 97.07 kg Kali Conklin DPM Work Phone: [facility] 04-09-2025 16:02-0400 Respiratory rate 16 /min Kali Conklin DPM Work Phone: [facility] 03-20-2025 10:32-0400 Body height 172.7 cm Whit Taylor MD Work Phone: [facility] 03-20-2025 10:32-0400 Body mass index (BMI) [Ratio] 32.54 kg/m2 Whit Taylor MD Work Phone: [facility] 03-20-2025 10:32-0400 Body weight 97.07 kg Whit Taylor MD Work Phone: [facility] 03-20-2025 10:32-0400 Diastolic blood pressure 64 mm[Hg] Whit Taylor MD Work Phone: [facility] 03-20-2025 10:32-0400 Systolic blood pressure 122 mm[Hg] Whit Taylor MD Work Phone: [facility] 02-25-2025 13:41-0400 Body height 170.2 cm Sascha Furlong DO Work Phone: [facility] 02-25-2025 13:41-0400 Body mass index (BMI) [Ratio] 33.35 kg/m2 Sascha Furlong DO Work Phone: [facility] 02-25-2025 13:41-0400 Body temperature 97.5 [degF] Sascha Furlong DO Work Phone: [facility] 02-25-2025 13:41-0400 Body weight 96.62 kg Sascha Furlong DO Work Phone: [facility] 02-25-2025 13:41-0400 Diastolic blood pressure 60 mm[Hg] Sascha Furlong DO Work Phone: [facility] 02-25-2025 13:41-0400 Heart rate 89 /min Sascha Furlong DO Work Phone: [facility] 02-25-2025 13:41-0400 Respiratory rate 20 /min Sascha Furlong DO Work Phone: [facility] 02-25-2025 13:41-0400 SaO2% (BldA) [Mass fraction] 96 % Sascha Furlong DO Work Phone: [facility] 02-25-2025 13:41-0400 Systolic blood pressure 118 mm[Hg] Sascha Furlong DO Work Phone: [facility] 02-21-2025 09:17-0400 Body height 172.7 cm Kali Cnoklin DPM Work Phone: [facility] 02-21-2025 09:17-0400 Body mass index (BMI) [Ratio] 32.84 kg/m2 Kali Conklin DPM Work Phone: [facility] 02-21-2025 09:17-0400 Body weight 97.98 kg Kali Conklin DPM Work Phone: [facility] 02-21-2025 09:17-0400 Respiratory rate 16 /min Kali Conklin DPM Work Phone: [facility] 02-16-2025 07:42-0400 Body temperature 97.8 [degF] Sascha Furlong DO Work Phone: [facility] 02-16-2025 07:42-0400 Diastolic blood pressure 81 mm[Hg] Sascha Furlong DO Work Phone: [facility] 02-16-2025 07:42-0400 Heart rate 74 /min Sascha Furlong DO Work Phone: [facility] 02-16-2025 07:42-0400 Respiratory rate 16 /min Sascha Furlong DO Work Phone: [facility] 02-16-2025 07:42-0400 SaO2% (BldA) [Mass fraction] 97 % Sascha Furlong DO Work Phone: [facility] 02-16-2025 07:42-0400 Systolic blood pressure 145 mm[Hg] Sascha Furlong DO Work Phone: [facility] 02-16-2025 05:51-0400 Body weight 100.9 kg Sascha Furlong DO Work Phone: [facility] 02-15-2025 14:59-0400 Body height 172.72 cm Sascha Furlong DO Work Phone: [facility] 02-15-2025 14:59-0400 Body temperature 98 [degF] Sascha Furlong DO Work Phone: [facility] 02-15-2025 14:59-0400 Body weight 98 kg Sascha Furlong DO Work Phone: [facility] 02-15-2025 14:59-0400 Diastolic blood pressure 88 mm[Hg] Sascha Furlong DO Work Phone: [facility] 02-15-2025 14:59-0400 Heart rate 70 /min Sascha Furlong DO Work Phone: [facility] 02-15-2025 14:59-0400 Respiratory rate 18 /min Sascha Furlong DO Work Phone: [facility] 02-15-2025 14:59-0400 SaO2% (BldA) [Mass fraction] 97 % Sascha Furlong DO Work Phone: [facility] 02-15-2025 14:59-0400 Systolic blood pressure 145 mm[Hg] Sascha Furlong DO Work Phone: [facility] 02-07-2025 10:07-0400 Body height 172.7 cm Kali Brown DPM Work Phone: [facility] 02-07-2025 10:07-0400 Body mass index (BMI) [Ratio] 32.84 kg/m2 Kali Brown DPM Work Phone: [facility] 02-07-2025 10:07-0400 Body weight 97.98 kg Kali Brown DPM Work Phone: [facility] 02-07-2025 10:07-0400 Diastolic blood pressure 78 mm[Hg] Kali Brown DPM Work Phone: [facility] 02-07-2025 10:07-0400 Heart rate 78 /min Kali Brown DPM Work Phone: [facility] 02-07-2025 10:07-0400 Systolic blood pressure 126 mm[Hg] Kali Brown DPM Work Phone: [facility] 01-30-2025 16:47-0400 Body height 172.7 cm Kali Brown DPM Work Phone: [facility] 01-30-2025 16:47-0400 Body mass index (BMI) [Ratio] 32.84 kg/m2 Kali Brown DPM Work Phone: [facility] 01-30-2025 16:47-0400 Body weight 97.98 kg Kali Conklin DPM Work Phone: [facility] 01-30-2025 16:47-0400 Respiratory rate 18 /min Kali Conklin DPM Work Phone: [facility] 01-29-2025 14:02-0400 SaO2% (BldA) [Mass fraction] 96 % Sascha Furlong DO Work Phone: [facility] [employer] 01-29-2025 13:57-0400 Body height 170.2 cm Sascha Furlong DO Work Phone: [facility] [employer] 01-29-2025 13:57-0400 Body mass index (BMI) [Ratio] 33.66 kg/m2 Sascha Furlong DO Work Phone: [facility] 01-29-2025 13:57-0400 Body temperature 97.39 [degF] Sascha Furlong DO Work Phone: [facility] 01-29-2025 13:57-0400 Body weight 97.52 kg Sascha Furlong DO Work Phone: [facility] [employer] 01-29-2025 13:57-0400 Respiratory rate 20 /min Sascha Furlong DO Work Phone: [facility] 01-25-2025 11:32-0500 Body height 170.2 cm Sascha Furlong DO Work Phone: [facility] 01-25-2025 11:32-0500 Body mass index (BMI) [Ratio] 34.51 kg/m2 Sascha Furlong DO Work Phone: [facility] [employer] 01-25-2025 11:32-0500 Body temperature 98.1 [degF] Sascha Furlong DO Work Phone: [facility] 01-25-2025 11:32-0500 Body weight 99.97 kg Sascha Furlong DO Work Phone: [facility] 01-25-2025 11:32-0500 Diastolic blood pressure 60 mm[Hg] Sascha Furlong DO Work Phone: [facility] 01-25-2025 11:32-0500 Heart rate 82 /min Sascha Furlong DO Work Phone: [facility] 01-25-2025 11:32-0500 Respiratory rate 20 /min Sascha Furlong DO Work Phone: [facility] 01-25-2025 11:32-0500 SaO2% (BldA) [Mass fraction] 98 % Sascha Furlong DO Work Phone: [facility] 01-25-2025 11:32-0500 Systolic blood pressure 140 mm[Hg] Sascha Furlong DO Work Phone: [facility] 01-24-2025 11:01-0500 Body height 172.7 cm Kali Conklin DPM Work Phone: [facility] 01-24-2025 11:01-0500 Body mass index (BMI) [Ratio] 32.84 kg/m2 Kali Conklin DPM Work Phone: [facility] 01-24-2025 11:01-0500 Body weight 97.98 kg Kali Conklin DPM Work Phone: [facility] 01-24-2025 11:01-0500 Respiratory rate 18 /min Kali Conklin DPM Work Phone: [facility] 01-12-2025 15:54-0500 Diastolic blood pressure 79 mm[Hg] Sascha Furlong DO Work Phone: [facility] 01-12-2025 15:54-0500 Heart rate 72 /min Sascha Furlong DO Work Phone: [facility] 01-12-2025 15:54-0500 Respiratory rate 20 /min Sascha Furlong DO Work Phone: [facility] 01-12-2025 15:54-0500 SaO2% (BldA) [Mass fraction] 97 % Sascha Furlong DO Work Phone: [facility] 01-12-2025 15:54-0500 Systolic blood pressure 133 mm[Hg] Sascha Furlong DO Work Phone: [facility] 01-12-2025 12:50-0500 Body height 172.72 cm Sascha Furlong DO Work Phone: [facility] 01-12-2025 12:50-0500 Body temperature 97.6 [degF] Sascha Furlong DO Work Phone: [facility] 01-12-2025 12:50-0500 Body weight 95.25 kg Sascha Furlong DO Work Phone: [facility] 01-12-2025 11:46-0500 Body temperature 97.9 [degF] Sascha Furlong DO Work Phone: [facility] 01-12-2025 11:46-0500 Body weight 98.42 kg Sascha Furlong DO Work Phone: [facility] 01-12-2025 11:46-0500 Diastolic blood pressure 77 mm[Hg] Sascha Furlong DO Work Phone: [facility] 01-12-2025 11:46-0500 Heart rate 80 /min Sascha Furlong DO Work Phone: [facility] 01-12-2025 11:46-0500 SaO2% (BldA) [Mass fraction] 97 % Sascha Furlong DO Work Phone: [facility] 01-12-2025 11:46-0500 Systolic blood pressure 132 mm[Hg] Sascha Furlong DO Work Phone: [facility] 01-10-2025 13:21-0500 Body height 172.7 cm Kali Brown DPM Work Phone: [facility] 01-10-2025 13:21-0500 Body mass index (BMI) [Ratio] 32.84 kg/m2 Kali Conklin DPM Work Phone: [facility] 01-10-2025 13:21-0500 Body weight 97.98 kg Kali Conlkin DPM Work Phone: [facility] 01-10-2025 13:21-0500 Respiratory rate 18 /min Kali Conklin DPM Work Phone: [facility] 12-19-2024 11:39-0500 Body height 172.7 cm Whit Taylor MD Work Phone: [facility] 12-19-2024 11:39-0500 Body mass index (BMI) [Ratio] 32.84 kg/m2 Whit Taylor MD Work Phone: [facility] 12-19-2024 11:39-0500 Body weight 97.98 kg Whit Taylor MD Work Phone: [facility] 12-17-2024 14:20-0500 Body height 172.7 cm Carlos Eden DO Work Phone: [facility] 12-17-2024 14:20-0500 Body mass index (BMI) [Ratio] 32.99 kg/m2 Carlos Eden DO Work Phone: [facility] 12-17-2024 14:20-0500 Body weight 98.43 kg Carlos Eden DO Work Phone: [facility] 12-17-2024 10:11-0500 Body height 170.2 cm Sascha Furlong DO Work Phone: [facility] 12-17-2024 10:11-0500 Body mass index (BMI) [Ratio] 33.48 kg/m2 Sascha Furlong DO Work Phone: [facility] 12-17-2024 10:11-0500 Body temperature 97.59 [degF] Sascha Furlong DO Work Phone: [facility] 12-17-2024 10:11-0500 Body weight 96.98 kg Sascha Furlong DO Work Phone: [facility] 12-17-2024 10:11-0500 Diastolic blood pressure 68 mm[Hg] Sascha Furlong DO Work Phone: [facility] 12-17-2024 10:11-0500 Heart rate 86 /min Sascha Furlong DO Work Phone: [facility] 12-17-2024 10:11-0500 Respiratory rate 20 /min Sascha Furlong DO Work Phone: [facility] 12-17-2024 10:11-0500 SaO2% (BldA) [Mass fraction] 96 % Sascha Furlong DO Work Phone: [facility] 12-17-2024 10:11-0500 Systolic blood pressure 120 mm[Hg] Sascha Furlong DO Work Phone: [facility] 12-06-2024 09:58-0500 Body height 172.7 cm Kali Conklin DPM Work Phone: [facility] 12-06-2024 09:58-0500 Body mass index (BMI) [Ratio] 32.99 kg/m2 Kali Conklin DPM Work Phone: [facility] 12-06-2024 09:58-0500 Body weight 98.43 kg Kali Conklin DPM Work Phone: [facility] 12-06-2024 09:58-0500 Respiratory rate 16 /min Kali Conklin DPM Work Phone: [facility] 11-01-2024 12:55-0500 Body mass index (BMI) [Ratio] 32.99 kg/m2 Kali Conklin DPM Work Phone: [facility] 11-01-2024 12:55-0500 Body weight 98.43 kg Kali Mk ZAPATA Work Phone: [facility] 10-15-2024 09:44-0500 Body height 172.7 cm Whit Taylor MD Work Phone: [facility] 10-15-2024 09:44-0500 Body mass index (BMI) [Ratio] 33.12 kg/m2 Whit Taylor MD Work Phone: [facility] 10-15-2024 09:44-0500 Body weight 98.79 kg Whit Taylor MD Work Phone: [facility] 10-09-2024 14:06-0500 Body height 170.2 cm Sascha Furlong DO Work Phone: [facility] 10-09-2024 14:06-0500 Body mass index (BMI) [Ratio] 34.43 kg/m2 Sascha Furlong DO Work Phone: [facility] 10-09-2024 14:06-0500 Body temperature 97.39 [degF] Sascha Furlong DO Work Phone: [facility] 10-09-2024 14:06-0500 Body weight 99.7 kg Sascha Furlong DO Work Phone: [facility] 10-09-2024 14:06-0500 Diastolic blood pressure 60 mm[Hg] Sascha Furlong DO Work Phone: [facility] 10-09-2024 14:06-0500 Heart rate 90 /min Sascha Furlong DO Work Phone: [facility] 10-09-2024 14:06-0500 Respiratory rate 22 /min Sascha Furlong DO Work Phone: [facility] 10-09-2024 14:06-0500 SaO2% (BldA) [Mass fraction] 97 % Sascha Furlong DO Work Phone: [place] [id number] 14:06-0500 Systolic blood pressure 110 mm[Hg] Sascha Furlong DO Work Phone: [facility] 09-24-2024 13:38-0500 Body mass index (BMI) [Ratio] 34.05 kg/m2 Sascha Furlong DO Work Phone: [facility] 09-24-2024 13:38-0500 Body temperature 98.1 [degF] Sascha Furlong DO Work Phone: [facility] 09-24-2024 13:38-0500 Body weight 98.61 kg Sascha Furlong DO Work Phone: [facility] 09-24-2024 13:38-0500 Diastolic blood pressure 60 mm[Hg] Sascha Furlong DO Work Phone: [facility] 09-24-2024 13:38-0500 Heart rate 80 /min Sascha Benefitterlong DO Work Phone: [facility] 09-24-2024 13:38-0500 SaO2% (BldA) [Mass fraction] 95 % Sascha Furlong DO Work Phone: [facility] 09-24-2024 13:38-0500 Systolic blood pressure 108 mm[Hg] Sascha Furlong DO Work Phone: [facility] 09-19-2024 09:08-0400 Body height 172.72 cm MD Edenilson Mcleod Work Phone: [facility] 09-19-2024 09:08-0400 Body mass index (BMI) [Ratio] 32.2 kg/m2 MD Edenilson Mcleod Work Phone: [facility] 09-19-2024 09:08-0400 Body temperature 97.7 [degF] MD Edenilson Mcleod Work Phone: [facility] 09-19-2024 09:08-0400 Body weight 96.16 kg MD Edenilson Mcleod Work Phone: [facility] 09-19-2024 09:08-0400 Diastolic blood pressure 76 mm[Hg] MD Edenilson Mcleod Work Phone: [facility] 09-19-2024 09:08-0400 Heart rate 85 /min MD Edenilson Mcleod Work Phone: [facility] 09-19-2024 09:08-0400 Respiratory rate 18 /min MD Edenilson Mcleod Work Phone: [facility] 09-19-2024 09:08-0400 SaO2% (BldA) [Mass fraction] 94 % MD Edenilson Mcleod Work Phone: [facility] 09-19-2024 09:08-0400 Systolic blood pressure 124 mm[Hg] MD Edenilson Mcleod Work Phone: [facility] 09-03-2024 10:01-0400 Blood Pressure Location Zac MUNIZ [facility] 09-03-2024 10:01-0400 Body temperature 98.6 [degF] Zac MUNIZ [facility] 09-03-2024 10:01-0400 Diastolic blood pressure 77 mm[Hg] Zac MUNIZ [facility] 09-03-2024 10:01-0400 Heart rate 71 /min Zac MUNIZ [facility] 09-03-2024 10:01-0400 Respiratory rate 16 /min Zac MUNIZ [facility] 09-03-2024 10:01-0400 Systolic blood pressure 129 mm[Hg] Zac MUNIZ [facility] 08-29-2024 10:46-0400 Body height 172.72 cm MD Edenilson Mcleod Work Phone: [facility] 08-29-2024 10:46-0400 Body mass index (BMI) [Ratio] 32.2 kg/m2 MD Edenilson Mcleod Work Phone: [facility] 08-29-2024 10:46-0400 Body weight 96.16 kg MD Edenilson Mcleod Work Phone: [facility] 08-17-2024 14:21-0400 Body height 172.7 cm Kali Conklin DPM Work Phone: [facility] 08-17-2024 14:21-0400 Body mass index (BMI) [Ratio] 32.39 kg/m2 Kali Conklin DPM Work Phone: [facility] 08-17-2024 14:21-0400 Body weight 96.62 kg Kali Conklin DPM Work Phone: [facility] 08-17-2024 14:21-0400 Diastolic blood pressure 82 mm[Hg] Kali Conklin DPM Work Phone: [facility] 08-17-2024 14:21-0400 Heart rate 74 /min Kali Conklin DPM Work Phone: [facility] 08-17-2024 14:21-0400 Respiratory rate 18 /min Kali Conklin DPM Work Phone: [facility] 08-17-2024 14:21-0400 Systolic blood pressure 124 mm[Hg] Kali Conklin DPM Work Phone: [facility] 06-14-2024 14:16-0400 Body height 170.2 cm Sascha Furlong DO Work Phone: [facility] 06-14-2024 14:16-0400 Body mass index (BMI) [Ratio] 33.3 kg/m2 Sascha Furlong DO Work Phone: [facility] 06-14-2024 14:16-0400 Body temperature 97.9 [degF] Sascha Furlong DO Work Phone: [facility] 06-14-2024 14:16-0400 Body weight 96.44 kg Sascha Furlong DO Work Phone: [facility] 06-14-2024 14:16-0400 Diastolic blood pressure 60 mm[Hg] Sascha Furlong DO Work Phone: [facility] 06-14-2024 14:16-0400 Heart rate 70 /min Sascha Furlong DO Work Phone: [facility] 06-14-2024 14:16-0400 Respiratory rate 18 /min Sascha Furlong DO Work Phone: [facility] 06-14-2024 14:16-0400 SaO2% (BldA) [Mass fraction] 99 % Sascha Furlong DO Work Phone: [facility] 06-14-2024 14:16-0400 Systolic blood pressure 100 mm[Hg] Sascha Furlong DO Work Phone: [facility] 05-28-2024 08:56-0400 Body height 172.72 cm DO Sascha Furlong Work Phone: [facility] 05-28-2024 08:56-0400 Body mass index (BMI) [Ratio] 31.8 kg/m2 DO Sascha Furlong Work Phone: [facility] 05-28-2024 08:56-0400 Body weight 95 kg DO Sascha Furlong Work Phone: [facility] 05-15-2024 14:48-0400 Blood Pressure Location LEAH KHAN [facility] 05-15-2024 14:48-0400 Diastolic blood pressure 78 mm[Hg] LEAH KHAN [facility] 05-15-2024 14:48-0400 Heart rate 80 /min LEAH KHAN [facility] 05-15-2024 14:48-0400 Respiratory rate 16 /min LEAH KHAN [facility] 05-15-2024 14:48-0400 Systolic blood pressure 132 mm[Hg] LEAH BILL [facility] 05-01-2024 10:16-0400 Body height 172.7 cm Sascha Furlong DO Work Phone: [facility] 05-01-2024 10:16-0400 Body mass index (BMI) [Ratio] 32.34 kg/m2 Sascha Furlong DO Work Phone: [facility] 05-01-2024 10:16-0400 Body weight 96.44 kg Sascha Furlong DO Work Phone: [facility] 05-01-2024 10:16-0400 Diastolic blood pressure 68 mm[Hg] Sascha Furlong DO Work Phone: [facility] 05-01-2024 10:16-0400 Systolic blood pressure 122 mm[Hg] Sascha Furlong DO Work Phone: [facility] 04-24-2024 10:48-0400 Body height 172.72 cm DO Sascha Furlong Work Phone: [facility] 04-24-2024 10:48-0400 Body mass index (BMI) [Ratio] 32.1 kg/m2 DO Sascha Furlong Work Phone: [facility] 04-24-2024 10:48-0400 Body weight 95.76 kg DO Sascha Furlong Work Phone: [facility] 04-09-2024 12:35-0400 Diastolic blood pressure 68 mm[Hg] DO Sascha Benefitterlong Work Phone: [facility] 04-09-2024 12:35-0400 Heart rate 63 /min DO Sascha Furlong Work Phone: [facility] 04-09-2024 12:35-0400 Respiratory rate 16 /min DO Sascha Benefitterlong Work Phone: [facility] 04-09-2024 12:35-0400 SaO2% (BldA) [Mass fraction] 98 % DO Sascha Benefitterlong Work Phone: [facility] 04-09-2024 12:35-0400 Systolic blood pressure 107 mm[Hg] DO Sascha Benefitterlong Work Phone: [facility] 04-09-2024 12:05-0400 Inhaled oxygen flow rate 4 L/min DO Sascha Benefitterlong Work Phone: [facility] 04-09-2024 10:16-0400 Body height 172.72 cm DO Sascha Benefitterlong Work Phone: [facility] 04-09-2024 10:16-0400 Body mass index (BMI) [Ratio] 32.1 kg/m2 DO Sascha Benefitterlong Work Phone: [facility] 04-09-2024 10:16-0400 Body weight 96 kg DO Sascha Furlong Work Phone: [facility] 04-09-2024 09:12-0400 Body temperature 97.8 [degF] DO Sascha Benefitterlong Work Phone: [facility] 03-29-2024 11:07-0400 Body height 172.72 cm DO Sascha Benefitterlong Work Phone: [facility] 03-29-2024 11:07-0400 Body mass index (BMI) [Ratio] 32.2 kg/m2 DO Sascha Furlong Work Phone: [facility] 03-29-2024 11:07-0400 Body weight 96.16 kg DO Sascha Furlong Work Phone: [facility] 03-20-2024 12:09-0400 Blood Pressure Location Daria Orzech [facility] 03-20-2024 12:09-0400 Body temperature 97.52 [degF] Daria Orzech [facility] 03-20-2024 12:09-0400 Diastolic blood pressure 74 mm[Hg] Daria Orzech [facility] 03-20-2024 12:09-0400 Heart rate 73 /min Daria Orzech [facility] 03-20-2024 12:09-0400 Respiratory rate 19 /min Daria Orzech [facility] 03-20-2024 12:09-0400 Systolic blood pressure 124 mm[Hg] Daria Orzech [facility] 02-21-2024 10:29-0400 Body height 172.72 cm DO Sascha Furlong Work Phone: [facility] 02-21-2024 10:29-0400 Body mass index (BMI) [Ratio] 32.6 kg/m2 DO Sascha Furlong Work Phone: [facility] 02-21-2024 10:29-0400 Body weight 97.52 kg DO Sascha Furlong Work Phone: [facility] 02-09-2024 13:46-0400 Body height 172.72 cm DO Sascha Furlong Work Phone: [facility] 02-09-2024 13:46-0400 Body mass index (BMI) [Ratio] 32.3 kg/m2 DO Sascha Furlong Work Phone: [facility] 02-09-2024 13:46-0400 Body weight 96.61 kg DO Sascha Furlong Work Phone: [facility] 01-02-2024 23:55-0500 Body height 172.72 cm DO Sascha Furlong Work Phone: [facility] 01-02-2024 23:55-0500 Body temperature 97.4 [degF] DO Sascha Furlong Work Phone: [facility] 01-02-2024 23:55-0500 Body weight 100.3 kg DO Sascha Furlong Work Phone: [facility] 01-02-2024 23:55-0500 Diastolic blood pressure 100 mm[Hg] DO Sascha Furlong Work Phone: [facility] 01-02-2024 23:55-0500 Heart rate 74 /min DO Sascha Furlong Work Phone: [facility] 01-02-2024 23:55-0500 Respiratory rate 20 /min DO Sascha Furlong Work Phone: [facility] 01-02-2024 23:55-0500 SaO2% (BldA) [Mass fraction] 96 % DO Sascha Furlong Work Phone: [facility] 01-02-2024 23:55-0500 Systolic blood pressure 155 mm[Hg] DO Sascha Furlong Work Phone: [facility] 12-30-2023 09:40-0500 Body height 172.72 cm Мария Hernandez Other [employer] Other 12-30-2023 09:40-0500 Body mass index (BMI) [Ratio] 32.99 kg/m2 Мария Hernandez Other [employer] Other 12-30-2023 09:40-0500 Body weight 98.43 kg Мария Hernandez Other [employer] Other 12-14-2023 09:34-0500 Body height 172.7 cm Sascha Furlong DO Work Phone: [employer] 12-14-2023 09:34-0500 Body mass index (BMI) [Ratio] 33.49 kg/m2 Sascha Furlong DO Work Phone: [employer] 12-14-2023 09:34-0500 Body temperature 97.59 [degF] Sascha Furlong DO Work Phone: [employer] 12-14-2023 09:34-0500 Body weight 99.88 kg Sascha Furlong DO Work Phone: [employer] 12-14-2023 09:34-0500 Diastolic blood pressure 68 mm[Hg] Sascha Furlong DO Work Phone: [employer] 12-14-2023 09:34-0500 Heart rate 75 /min Sascha Furlong DO Work Phone: [employer] 12-14-2023 09:34-0500 Respiratory rate 20 /min Sascha Furlong DO Work Phone: [employer] 12-14-2023 09:34-0500 SaO2% (BldA) [Mass fraction] 96 % Sascha Furlong DO Work Phone: [employer] 12-14-2023 09:34-0500 Systolic blood pressure 122 mm[Hg] Sascha Furlong DO Work Phone: [employer] 09-19-2023 09:39-0400 Blood Pressure Location Zac MUNIZ [facility] 09-19-2023 09:39-0400 Diastolic blood pressure 77 mm[Hg] Zac MUNIZ [facility] 09-19-2023 09:39-0400 Heart rate 64 /min Zac MUNIZ [facility] 09-19-2023 09:39-0400 Respiratory rate 16 /min Zac MUNIZ [facility] 09-19-2023 09:39-0400 Systolic blood pressure 126 mm[Hg] Zac MUNIZ [facility] 05-18-2023 09:00-0400 Body weight 20 mg DO Sascha Furlong Work Phone: [facility] 05-09-2023 10:34-0400 Body height 172.72 cm Sascha G Furlong Work Phone: [facility] DO Work Phone: 05-09-2023 10:34-0400 Body mass index (BMI) [Ratio] 32.54 kg/m2 Sascha G Furlong Work Phone: [facility] DO Work Phone: 05-09-2023 10:34-0400 Body surface area Derived from formula 2.1 m2 Sascha G Furlong Work Phone: [facility] DO Work Phone: 05-09-2023 10:34-0400 Body weight 97.07 kg Sascha G Furlong Work Phone: [facility] DO Work Phone: 05-09-2023 10:34-0400 Diastolic blood pressure 60 mm[Hg] Sascha G Furlong Work Phone: [facility] DO Work Phone: 05-09-2023 10:34-0400 Heart rate 78 /min Sascha G Furlong Work Phone: [facility] DO Work Phone: 05-09-2023 10:34-0400 Systolic blood pressure 88 mm[Hg] Sascha G Furlong Work Phone: [facility] DO Work Phone: 05-07-2023 19:59-0400 Diastolic blood pressure 67 mm[Hg] DO Sascha Furlong Work Phone: [facility] 05-07-2023 19:59-0400 Heart rate 68 /min DO Sascha Furlong Work Phone: [facility] 05-07-2023 19:59-0400 Respiratory rate 18 /min DO Sascha Furlong Work Phone: [facility] 05-07-2023 19:59-0400 SaO2% (BldA) [Mass fraction] 96 % DO Sascha Furlong Work Phone: [facility] 05-07-2023 19:59-0400 Systolic blood pressure 122 mm[Hg] DO Sascha Furlong Work Phone: [facility] 05-07-2023 18:27-0400 Body height 172.72 cm DO Sascha Furlong Work Phone: [facility] 05-07-2023 18:27-0400 Body temperature 99 [degF] DO Sascha Furlong Work Phone: [facility] 05-07-2023 18:27-0400 Body weight 94.95 kg DO Sascha Furlong Work Phone: [facility] 05-03-2023 05:30-0400 Diastolic blood pressure 60 mm[Hg] DO Sascha Furlong Work Phone: [facility] 05-03-2023 05:30-0400 Heart rate 74 /min DO Sascha Furlong Work Phone: [facility] 05-03-2023 05:30-0400 Respiratory rate 18 /min DO Sascha Furlong Work Phone: [facility] 05-03-2023 05:30-0400 SaO2% (BldA) [Mass fraction] 96 % DO Sascha Furlong Work Phone: [facility] 05-03-2023 05:30-0400 Systolic blood pressure 101 mm[Hg] DO Sascha Furlong Work Phone: [facility] 05-03-2023 02:29-0400 Body height 172.72 cm DO Sascha Furlong Work Phone: [facility] 05-03-2023 02:29-0400 Body temperature 97.9 [degF] DO Sascha Furlong Work Phone: [facility] 05-03-2023 02:29-0400 Body weight 97.52 kg DO Sascha Furlong Work Phone: [facility] 04-04-2023 15:54-0400 Diastolic blood pressure 55 mm[Hg] DO Sascha Furlong Work Phone: [facility] 04-04-2023 15:54-0400 Heart rate 54 /min DO Sascha Furlong Work Phone: [facility] 04-04-2023 15:54-0400 Respiratory rate 16 /min DO Sascha Furlong Work Phone: [facility] 04-04-2023 15:54-0400 SaO2% (BldA) [Mass fraction] 95 % DO Sascha Furlong Work Phone: [facility] 04-04-2023 15:54-0400 Systolic blood pressure 98 mm[Hg] DO Sascha Furlong Work Phone: [facility] 04-04-2023 09:55-0400 Body height 172.72 cm DO Sascha Furlong Work Phone: [facility] 04-04-2023 09:55-0400 Body temperature 97.5 [degF] DO Sascha Furlong Work Phone: [facility] 04-04-2023 09:55-0400 Body weight 98.7 kg DO Sascha Furlong Work Phone: [facility] 03-30-2023 11:00-0400 Body height 172.72 cm Sascha G Furlong Work Phone: [facility] [employer] 250 DO Work Phone: 03-30-2023 11:00-0400 Body mass index (BMI) [Ratio] 32.99 kg/m2 Sascha G Furlong Work Phone: [facility] [employer] 250 DO Work Phone: 03-30-2023 11:00-0400 Body surface area Derived from formula 2.12 m2 Sascha G Furlong Work Phone: [facility] 250 DO Work Phone: 03-30-2023 11:00-0400 Body weight 98.43 kg Sascha G Furlong Work Phone: [facility] 250 DO Work Phone: 03-30-2023 11:00-0400 Diastolic blood pressure 70 mm[Hg] Sascha G Furlong Work Phone: [facility] 250 DO Work Phone: 03-30-2023 11:00-0400 Diastolic blood pressure 82 mm[Hg] Sascha Candelaria Furlong Work Phone: [facility] 250 DO Work Phone: 03-30-2023 11:00-0400 Heart rate 63 /min Sascha Candelaria Furlong Work Phone: [facility] 250 DO Work Phone: 03-30-2023 11:00-0400 Systolic blood pressure 126 mm[Hg] Sascha Candelaria Furlong Work Phone: [facility] 250 DO Work Phone: 03-30-2023 11:00-0400 Systolic blood pressure 134 mm[Hg] Sascha Candelaria Furlong Work Phone: [facility] 250 DO Work Phone: 03-24-2023 11:00-0400 54 1 Sascha Candelaria Furlong Work Phone: [facility] 250 DO Work Phone: Comment on above: [id number] Encounters Encounter Date Encounter Type Care Provider Facility Start: 10-04-2025 ambulatory Zac Sinhai ty:[facility] Start: 09-16-2025 ambulatory Zac Sinhai ty:[facility] Start: 09-12-2025 ambulatory Zac Sinhai ty:[id number] Start: 08-21-2025 End: 08-21-2025 Refill Sascha Marielong DO Work Phone: [facility] Start: 08-19-2025 End: 08-19-2025 ambulatory SHABNAM CONNELL Not Available Start: 08-15-2025 End: 08-15-2025 ambulatory Sascha Mareilong DO Work Phone: [facility] Work Phone: Start: 08-15-2025 End: 08-15-2025 Patient encounter procedure Edenilson Cottrell MD -[facility] Work Phone: Start: 08-13-2025 End: 08-13-2025 ambulatory Daria X Orzech Facility:[facility] Start: 08-13-2025 End: 08-13-2025 Patient encounter procedure Daria X Orzech [facility] Start: 08-07-2025 End: 08-07-2025 Patient encounter procedure Christine Sanchez RUBBLE PLACER-C -Lab [address] Work Phone: Start: 08-07-2025 End: 08-07-2025 ambulatory Sascha Furlong DO Work Phone: [facility] Work Phone: Start: 07-24-2025 End: 07-24-2025 Patient encounter procedure Melanie Trujillo DO -Electrodiagnostics Work Phone: Start: 07-24-2025 End: 07-24-2025 ambulatory Sascha Furlong DO Work Phone: [facility] Work Phone: Start: 07-19-2025 ambulatory Zac Carey ty:[facility] Start: 07-17-2025 End: 07-17-2025 ambulatory Sascha Furlong DO Work Phone: [facility] Work Phone: Start: 07-17-2025 End: 07-17-2025 Patient encounter procedure Shabnam Connell RUBBLE PLACER-C -[facility] [place] Work Phone: Start: 07-17-2025 End: 07-17-2025 Office outpatient visit 40 minutes Shabnam Connell RUBBLE PLACER Work Phone: [facility] Mg Neurology Comment on above: Syncope, unspecified syncope type (Primary Dx); Neuropathy; Hypersomnia with sleep apnea; Rheumatoid arthritis, involving unspecified site, unspecified whether rheumatoid factor present (HCC); Intention tremor; Cervicogenic headache Start: 07-17-2025 End: 07-17-2025 ambulatory SHABNAM CONNELL Not Available Start: 07-01-2025 ambulatory Zac De Oliveira MUNIZ Cherry ty:[facility] Start: 06-27-2025 End: 06-27-2025 Bamboo flowsheet Kali Conklin DPM Work Phone: [facility] Start: 06-27-2025 End: 06-27-2025 Bamboo flowsheet Kali Conklin DPM Work Phone: [facility] Start: 06-27-2025 End: 06-27-2025 Office outpatient visit 10 minutes Kali Conklin DPM Work Phone: [facility] Comment on above: Tenosynovitis of rig ht lower leg (Primary Dx); Pain due to onychomycosis of toenails of both feet; Xerosis cutis; Su splint, right, initial encounter; 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 Start: 06-27-2025 End: 06-27-2025 ambulatory KALI CONKLIN Not Available Start: 06-25-2025 End: 06-25-2025 Patient encounter procedure Melanie Trujillo DO -Ultrasound [facility] [place] Work Phone: Start: 06-25-2025 End: 06-25-2025 ambulatory Sascha Sutton DO Work Phone: [facility] Work Phone: Start: 06-25-2025 End: 06-25-2025 ambulatory ALFONSO Santiago [facility] Ambulatory Start: 06-20-2025 End: 06-20-2025 Office consultation new/estab patient 80 min Alfonso Trujillo DO Work Phone: [facility] Comment on above: Preop cardiovascular exam; Syncope, unspecified syncope type; Mixed hyperlipidemia; Essential (primary) hypertension; PVC (premature ventricular contraction); Systemic lupus erythematosus, unspecified SLE type, unspecified organ involvement status (Multi); BMI 34.0-34.9,adult; Former smoker Start: 06-20-2025 End: 06-20-2025 Patient encounter status Alfonso Trujillo DO Work Phone: [facility] Start: 06-20-2025 End: 06-20-2025 ambulatory ALFONSO Santiago [facility] Ambulatory Start: 06-20-2025 End: 06-20-2025 Encounter for preprocedural cardiovascular examination [facility] Ambulatory Start: 06-12-2025 End: 06-12-2025 ambulatory Zac MUNIZ Facility:[facility] Start: 06-12-2025 End: 06-12-2025 Patient encounter procedure Zac MUNIZ [facility] Start: 06-11-2025 End: 06-11-2025 Office outpatient visit 25 minutes Myra Orlando GUEST EXPERIENCE SPECIALIST-ENGINEERING PROGRAM MANAGER [facility] Comment on above: Hospital discharge f ollow-up (Primary Dx); Syncope, unspecified syncope type Start: 06-11-2025 End: 06-11-[address] [facility] Start: 06-01-2025 End: 06-03-2025 Refill Kali Conklin DPM Work Phone: [facility] Comment on above: Tenosynovitis of rig ht lower leg Start: 05-28-2025 End: 05-28-2025 Office outpatient visit 15 minutes Sascha Sutton DO [facility] Comment on above: Moderate persistent asthma, unspecified whether complicated (Primary Dx); Class 2 severe obesity due to excess calories with serious comorbidity and body mass index (BMI) of 35.0 to 35.9 in adult ([facility]) Start: 05-28-2025 End: 05-28-2025 [facility] Start: 05-27-2025 End: 05-27-2025 Refill Sascha G Furlong DO Work Phone: [facility] Start: 05-15-2025 End: 05-15-2025 Bamboo flowsheet Shabnam Harrisoncristopher RUBBLE PLACER Work Phone: [facility] Start: 05-15-2025 End: 05-15-2025 Bamboo flowsheet Shabnamlizabeth Evansnacristopher RUBBLE PLACER Work Phone: [facility] Start: 05-15-2025 End: 05-15-2025 Office outpatient visit 25 minutes Shabnam Connell RUBBLE PLACER Work Phone: [facility] Comment on above: Intention tremor (Pr imary Dx); Polyneuropathy Start: 05-15-2025 End: 05-15-2025 ambulatory SHABNAM CONNELL Not Available Start: 05-07-2025 End: 05-07-2025 Patient encounter procedure Sascha Sutton DO Work Phone: [facility] Comment on above: Medicare annual well ness visit, subsequent (Primary Dx); Screening for depression Start: 05-07-2025 End: 05-07-2025 ambulatory [place] [facility] Start: 05-01-2025 Non-patient / Non-visit Sascha Kwanng DO Work Phone: [facility] Work Phone: Start: 05-01-2025 End: 05-01-2025 Patient encounter procedure Saschajennifer Kwanng DO Work Phone: [facility]-Respiratory Therapy Work Phone: Start: 05-01-2025 End: 05-01-2025 ambulatory Sascha Cynthialong DO Work Phone: [facility] Work Phone: Start: 04-29-2025 End: 04-29-2025 ambulatory Zac MUNIZ Facility: [facility] Start: 04-29-2025 End: 04-29-2025 Patient encounter procedure Zac MUNIZ [facility] Start: 04-18-2025 End: 04-18-2025 Patient encounter procedure Sascha Sutton DO Work Phone: [facility]-Lab [address] Work Phone: Start: 04-18-2025 End: 04-18-2025 ambulatory Sascha Kwanng DO Work Phone: [facility] Work Phone: Start: 04-18-2025 Registered Recurring Sascha mcarthur DO Work Phone: [facility]-Physical Therapy [facility] Start: 04-16-2025 End: 04-16-2025 Office outpatient visit 15 minutes Sascha Sutton DO Work Phone: [facility] Comment on above: Lumbar radiculopathy (Primary Dx); Pain of right lower leg Start: 04-16-2025 End: 04-16-2025 ambulatory [facility] Ambulatory [facility] Start: 04-10-2025 End: 04-17-2025 Telephone encounter Carmen Neff CMA [facility] Start: 04-10-2025 End: 04-10-2025 Patient encounter procedure Sascha Kwanng DO Work Phone: [facility] Work Phone: Start: 04-10-2025 End: 04-10-2025 ambulatory Sascha Kwanng DO Work Phone: [facility] Work Phone: Start: 04-09-2025 End: [...] Recurring Sascha Fu rlong DO Work Phone: [facility]-Physical Therapy [facility] Start: 03-27-2025 End: 03-27-2025 ambulatory Sascha Furlong DO Work Phone: [facility] Work Phone: Start: 03-27-2025 End: 03-27-2025 Patient encounter procedure Sascha Furlong DO Work Phone: [facility] Work Phone: Start: 03-26-2025 Registered Recurring Sascha Fu rlong DO Work Phone: [facility]-Physical Therapy [facility] Start: 03-20-2025 End: 03-20-2025 Bamboo flowsheet Whit Taylor MD Work Phone: [facility] Start: 03-20-2025 End: 03-20-2025 Bamboo flowsheet Whit Taylor MD Work Phone: [facility] Start: 03-20-2025 End: 03-20-2025 ambulatory WHIT TAYLOR Not Available Start: 03-20-2025 End: 03-20-2025 Office outpatient visit 25 minutes Whit Taylor MD Work Phone: [facility] Comment on above: Piriformis syndrome of right side (Primary Dx); Intention tremor Start: 03-13-2025 Non-patient / Non-visit Sascha Sutton DO Work Phone[facility] Work Phone: Start: 03-04-2025 End: 03-04-2025 Telephone encounter Marian Guajardo RUBBLE PLACER Work Phone: [facility] Start: 02-25-2025 End: 02-25-2025 Transitional care manage srvc 14 day discharge Sascha Sutton DO Work Phone: [facility] Comment on above: Other chest pain (Pr imary Dx); Thoracic region somatic dysfunction; Essential hypertension Start: 02-25-2025 End: 02-25-2025 ambulatory SASCHA SUTTON [facility] Ambulatory [facility] Start: 02-24-2025 End: 02-24-2025 Refill Sascha Sutton DO Work Phone: [facility] [...] Available Start: 02-21-2025 End: 02-21-2025 ambulatory Sascha Sutton DO Work Phone: [facility] Work Phone: Start: 02-21-2025 End: 02-21-2025 Patient encounter procedure Sascha Furlong DO Work Phone: [facility] Work Phone: Start: 02-15-2025 End: 02-16-2025 ambulatory [place] Matt Facility:[facility] Start: 02-15-2025 End: 02-16-2025 Evaluation and management of inpatient Sascha Furlong DO Work Phone: [facility] [place] [facility] Work Phone: Start: 02-15-2025 End: 02-16-2025 observation encounter Sascha Furlong DO Work Phone: [facility] Work Phone: Start: 02-08-2025 End: 02-08-2025 ambulatory Sascha Furlong DO Work Phone: [facility] Work Phone: Start: 02-08-2025 End: 02-08-2025 Patient encounter procedure Sascha Furlong DO Work Phone: [facility] Orth[facility] Work Phone: Start: 02-07-2025 End: [...] 01-29-2025 Office outpatient visit 25 minutes Sascha Mariegeneosmani DO Work Phone: [facility] Comment on above: Right leg weakness ( Primary Dx); Fall, initial encounter; Lumbosacral stenosis with neurogenic claudication; Perforation of right tympanic membrane Start: 01-29-2025 End: 01-29-2025 [facility] Start: 01-25-2025 End: 01-25-2025 ambulatory Sascha Cynthialong DO Work Phone: [facility] Work Phone: Start: 01-25-2025 End: 01-25-2025 Patient encounter procedure Sascha Cynthialong DO Work Phone: [facility] Work Phone: Start: 01-25-2025 End: 01-25-2025 Office outpatient visit 15 minutes Sascha Teagan Marielong DO Work Phone: [facility] Comment on above: Abrasion of anterior right lower leg, subsequent encounter (Primary Dx); Cellulitis of right lower extremity; Contusion of right lower leg, subsequent encounter Start: 01-25-2025 End: 01-25-2025 [facility] Start: 01-24-2025 End: 01-24-2025 Bamboo [...] 01-24-2025 ambulatory Sascha Furlong DO Work Phone: [facility] Work Phone: Start: 01-24-2025 End: 01-24-2025 Discharged Recurring Sascha Furlong DO Work Phone: [facility]-Physical Therapy [facility] Start: 01-24-2025 Registered Recurring Sascha Fu rlong DO Work Phone: [facility]-Physical Therapy [facility] Start: 01-14-2025 End: 01-14-2025 Patient encounter procedure Sascha Furlong DO Work Phone: [facility]-Lab [address] Work Phone: Start: 01-14-2025 End: 01-14-2025 ambulatory Sascha Furlong DO Work Phone: [facility] Work Phone: Start: 01-12-2025 End: 01-12-2025 Emergency department patient visit Sascha Sutton DO Work Phone: [facility]-Emergency Room Work Phone: Start: 01-12-2025 End: 01-12-2025 ambulatory Sascha Sutton DO Work Phone: [facility] Work Phone: Start: 01-12-2025 End: 01-12-2025 Patient encounter procedure Sascha Sutton DO Work Phone: [facility] [place] Work Phone: Start: 01-11-2025 Registered Recurring Sascha mcarthur DO Work Phone: [facility]-Physical Therapy [facility] Start: 01-10-2025 End: 01-10-2025 Bamboo flowsheet Kali [...] Start: 01-03-2025 End: 01-03-2025 Telephone encounter Renée Graff Other Phone: [facility] Start: 12-19-2024 End: 12-19-2024 Bamboo flowsheet Whit Taylor MD Work Phone: [facility] Start: 12-19-2024 End: 12-19-2024 Bamboo flowsheet Whit Taylor MD Work Phone: [facility] Start: 12-19-2024 End: 12-19-2024 Office outpatient visit 25 minutes Whit Taylor MD Work Phone: [facility] Comment on above: Intention tremor (Pr imary Dx); Piriformis syndrome of right side Start: 12-19-2024 End: 12-19-2024 ambulatory WHIT TAYLOR Not Available Start: 12-17-2024 End: 12-17-2024 ambulatory CARLOS Navarro AKIN Not Available Start: 12-17-2024 End: 12-17-2024 Bamboo flowsheet Carlos Eden DO Work Phone: [facility] Start: 12-17-2024 End: 12-17-2024 Bamboo flowsheet Carlos Eden DO Work Phone: [facility] Start: 12-17-2024 End: 12-17-2024 Office outpatient visit 25 minutes Carlos Eden DO Work Phone: [facility] Comment on above: Thyroid nodule (CMS/ HCC) (Primary Dx) Essential hypertensi on (Primary Dx); Hyperlipidemia, unspecified hyperlipidemia type; Intention tremor; 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CMS-HCC); Antiphospholipid syndrome (CMS-HCC); Class 1 obesity due to excess calories with serious comorbidity and body mass index (BMI) of 33.0 to 33.9 in adult Start: 12-17-2024 End: 12-17-2024 ambulatory [facility] Ambulatory [facility] Start: 12-07-2024 Registered Recurring Edenilson saenz MD Work Phone: [facility]-Physical Therapy [facility] Start: 12-07-2024 End: 12-07-2024 Patient encounter procedure Edenilson Mcleod MD Work Phone: [facility]-Lab [facility] [place] Work Phone: Start: 12-07-2024 End: 12-07-2024 ambulatory Edenilson Mcleod MD Work Phone: [facility] Work Phone: Start: 12-06-2024 End: [...] Registered Recurring Edenilson saenz MD Work Phone: [facility]-Physical Therapy [facility] Start: 11-26-2024 End: 11-26-2024 Orders Only Sascha Teagan Sutton DO Work Phone: [facility] Comment on above: Essential hypertensi on (Primary Dx); Hyperlipidemia, unspecified hyperlipidemia type; Encounter for screening for malignant neoplasm of prostate Start: 11-26-2024 End: 11-26-2024 Patient encounter procedure Edenilson Mcleod MD Work Phone: [facility] Work Phone: Start: 11-09-2024 End: 11-09-2024 Patient encounter procedure Edenilson Mcleod MD Work Phone: [facility] Orth[facility] Work Phone: Start: 11-05-2024 End: 11-05-2024 Patient encounter procedure Edenilson Mcleod MD Work Phone: [facility]-MRI [address] Closed Work Phone: Start: 11-05-2024 End: 11-05-2024 ambulatory Sascha Sutton Facility:[facility] Start: 11-01-2024 End: 11-01-2024 Bamboo flowsheet Kali Conklin DPM Work Phone: [facility] Start: 11-01-2024 End: 11-01-2024 Bamboo flowsheet Kalielliott Conklin DPM Work Phone: [facility] Start: 11-01-2024 End: 11-01-2024 Patient encounter procedure Kali Conklin DPM Work Phone: [facility] Comment on above: Pain due to onychomy cosis of toenails of both feet (Primary Dx); Exostosis of both feet Start: 11-01-2024 End: 11-01-2024 ambulatory KALI CONKLIN Not Available Start: 10-25-2024 End: 10-25-2024 ambulatory Zac MUNIZ Facility::[id number] Start: 10-17-2024 End: 10-17-2024 Patient encounter procedure Edenilson Mcleod MD Work Phone: [facility] Work Phone: Start: 10-15-2024 End: 10-15-2024 [...] encounter procedure Edenilson Mcleod MD Work Phone: [facility] [address] Work Phone: Start: 10-10-2024 End: 10-10-2024 ambulatory Edenilson Mcleod MD Work Phone: [facility] Work Phone: Start: 10-09-2024 End: 10-09-2024 Office outpatient visit 15 minutes Sascha Sutton DO Work Phone: [facility] Comment on above: Subacute frontal sin usitis (Primary Dx); Hoarseness Start: 10-09-2024 End: 10-09-2024 ambulatory [facility] Ambulatory [facility] Start: 10-02-2024 End: 10-02-2024 Orders Only Sascha Teagan Mariemercy [place] DO Work Phone: [facility] Start: 09-24-2024 End: 09-24-2024 Office outpatient visit 15 minutes Saschajennifer Marieosmani DO Work Phone: [facility] Comment on above: Upper respiratory tr act infection, unspecified type (Primary Dx) Start: 09-24-2024 End: 09-24-2024 ambulatory [facility] Ambulatory [facility] Start: 09-19-2024 End: 09-19-2024 ambulatory MD Edenilson Mcleod Work Phone: [facility] Work Phone: Start: 09-19-2024 End: 09-19-2024 Patient encounter procedure MD Edenilson Mcleod Work Phone: [facility] [place] Work Phone: Start: 09-06-2024 Non-patient / Non-visit MD Araya Work Phone: [facility] Work Phone: Start: 09-05-2024 Non-patient / Non-visit MD Araya Work Phone: [facility] Work Phone: Start: 09-05-2024 End: 09-05-2024 ambulatory MD Edenilson Mcleod Work Phone: [facility] Work Phone: Start: 09-05-2024 End: 09-05-2024 Patient encounter procedure MD Edenilson Mcleod Work Phone: [facility] Work Phone: Start: 09-03-2024 End: 09-03-2024 ambulatory Zac MUNIZ Facility:[facility] Start: 09-03-2024 End: 09-03-2024 Patient encounter procedure Zac MUNIZ [facility] Start: 08-29-2024 End: 08-29-2024 Refill Sascha Sutton DO Work Phone: [facility] Start: 08-29-2024 End: 08-29-2024 ambulatory MD Edenilson Mcleod Work Phone: [facility] Work Phone: Start: 08-29-2024 End: 08-29-2024 Patient encounter procedure MD Edenilson Mcleod Work Phone: [facility] Mg Orthopedics Work Phone: Start: 08-20-2024 End: 08-20-2024 ambulatory MD Edenilson Mcleod Work Phone: [facility] Work Phone: Start: 08-20-2024 End: 08-20-2024 Patient encounter procedure MD Edenilson Mcleod Work Phone: [facility] [employer] [facility] Work Phone: Start: 08-17-2024 End: 08-17-2024 Office outpatient visit 15 minutes Kali Conklin DPM Work Phone: [facility] Comment on above: Exostosis of both fe et (Primary Dx); Onychomycosis; Toe pain, bilateral Start: 08-17-2024 End: 08-17-2024 Bamboo flowsheet Kali Conklin DPM Work Phone: [facility] Start: 08-17-2024 End: 08-17-2024 Bamboo flowsheet Kali Conklin DPM Work Phone: [facility] Start: 08-13-2024 End: 08-13-2024 ambulatory MD Edenilson Mcleod Work Phone: [facility] Work Phone: Start: 08-13-2024 End: 08-13-2024 Patient encounter procedure MD Edenilson Mcleod Work Phone: [facility] Work Phone: Start: 08-13-2024 Non-patient / Non-visit MD Araya Work Phone: [facility] Work Phone: Start: 07-25-2024 End: 07-25-2024 ambulatory MD Edenilson Mcleod Work Phone: [facility] Work Phone: Start: 07-25-2024 End: 07-25-2024 Patient encounter procedure MD Edenilson Mcleod Work Phone: [facility] Pain Management Work Phone: Start: 07-18-2024 Non-patient / Non-visit MD Araya Work Phone: [facility] Work Phone: Start: 07-18-2024 End: 07-18-2024 Patient encounter procedure MD Edenilson Mcleod Work Phone: [facility] Work Phone: Start: 07-12-2024 End: 07-12-2024 ambulatory MD Edenilson Mcleod Work Phone: [facility] Work Phone: Start: 07-12-2024 End: 07-12-2024 Patient encounter procedure MD Edenilson Mcleod Work Phone: [facility] Pain Management Work Phone: Start: 07-04-2024 Non-patient / Non-visit MD Araya Work Phone: [facility] Work Phone: Start: 07-04-2024 End: 07-04-2024 ambulatory DO Sascha Furlong Work Phone: [facility] Work Phone: Start: 07-04-2024 End: 07-04-2024 Patient encounter procedure DO Sascha Furlong Work Phone: [facility] Work Phone: Start: 07-03-2024 End: 07-03-2024 ambulatory DO Sascha Furlong Work Phone: [facility] Work Phone: Start: 07-03-2024 End: 07-03-2024 Patient encounter procedure DO Sascha Furlong Work Phone: [facility] [address] Work Phone: Start: 06-26-2024 End: 06-26-2024 ambulatory DO Sascha Furlong Work Phone: [facility] Work Phone: Start: 06-26-2024 End: 06-26-2024 Patient encounter procedure DO Sascha Furlong Work Phone: [facility] Pain Management [facility] Work Phone: Start: 06-15-2024 End: 06-21-2024 Telephone encounter Sascha Sutton [facility] Start: 06-14-2024 End: 06-14-2024 Office outpatient visit 15 minutes Sascha Sutton DO Work Phone: [facility] Internal Medicine - Family Medicine Comment on above: Essential hypertensi on (Primary Dx); Class 1 obesity due to excess calories with serious comorbidity and body mass index (BMI) of 33.0 to 33.9 in adult Start: 06-14-2024 End: 06-14-2024 ambulatory SASCHA SUTTON [facility] Start: 06-06-2024 End: 06-06-2024 ambulatory DO Sascha Sutton Work Phone: [facility] Work Phone: Start: 06-06-2024 End: 06-06-2024 Patient encounter procedure DO Sascha Sutton Work Phone: [facility] Work Phone: Start: 06-06-2024 Non-patient / Non-visit DO Greg Kwanng Work Phone: [facility] Work Phone: Start: 06-02-2024 End: 06-02-2024 Refill Sascha Sutton DO Work Phone: [facility] Internal Medicine - Family [facility] Start: 05-30-2024 End: 05-30-2024 ambulatory DO Sascha Kwanng Work Phone: [facility] Work Phone: Start: 05-30-2024 End: 05-30-2024 Departed Referred DO Sascha Kwanng Work Phone: [facility] [address] [place] Work Phone: Start: 05-28-2024 End: 05-28-2024 ambulatory DO Sascha Furlong Work Phone: [facility] Work Phone: Start: 05-28-2024 End: 05-28-2024 Patient encounter procedure DO Sascha Furlong Work Phone: [facility] Pain Management [facility] Work Phone: Start: 05-16-2024 End: 05-16-2024 ambulatory DO Sascha Furlong Work Phone: [facility] Work Phone: Start: 05-16-2024 End: 05-16-2024 Patient encounter procedure DO Sascha Furlong Work Phone: [facility] Work Phone: Start: 05-16-2024 Non-patient / Non-visit DO Den nis Furlong Work Phone: [facility] Work Phone: Start: 05-15-2024 End: 05-15-2024 Patient encounter procedure LEAH KHAN [facility] Start: 05-02-2024 End: 05-02-2024 ambulatory DO Sascha Furlong Work Phone: [facility] Work Phone: Start: 05-02-2024 End: 05-02-2024 Patient encounter procedure DO Sascha Furlong Work Phone: [facility] Work Phone: Start: 05-01-2024 End: 05-01-2024 Patient encounter procedure Sascha G Furlong DO Work Phone: [facility] - [facility] Comment on above: Medicare annual well ness visit, subsequent (Primary Dx); Screening for depression Start: 04-24-2024 End: 04-24-2024 ambulatory DO Sascha Furlong Work Phone: [facility] Work Phone: Start: 04-24-2024 End: 04-24-2024 Patient encounter procedure DO Sascha Furlong Work Phone: [facility] Neurosurgery Work Phone: Start: 04-18-2024 Non-patient / Non-visit DO Den nis Furlong Work Phone: [facility] Work Phone: Start: 04-18-2024 End: 04-18-2024 ambulatory DO Sascha Furlong Work Phone: [facility] Work Phone: Start: 04-18-2024 End: 04-18-2024 Patient encounter procedure DO Sascha Furlong Work Phone: [facility] Work Phone: Start: 04-11-2024 End: 04-11-2024 ambulatory DO Sascha Furlong Work Phone: [facility] Work Phone: Start: 04-11-2024 End: 04-11-2024 Patient encounter procedure DO Sascha Furlong Work Phone: [facility] Pain Management [facility] Work Phone: Start: 04-09-2024 Non-patient / Non-visit DO Den nis Furlong Work Phone: [facility] Neurosurgery Work Phone: Start: 04-09-2024 End: 04-09-2024 Admission to same day surgery center DO Sascha Furlong Work Phone: [facility]-Surgery Center [address] [place] Start: 04-09-2024 End: 04-09-2024 ambulatory DO Sascha Furlong Work Phone: [facility] Work Phone: Start: 04-02-2024 End: 04-02-2024 ambulatory DO Sascha Furlong Work Phone: [facility] Work Phone: Start: 04-02-2024 End: 04-02-2024 Departed Referred DO Sascha Furlong Work Phone: [facility]-Pre-Surgical Testing Work Phone: Start: 04-02-2024 End: 04-02-2024 Patient encounter procedure DO Sascha Furlong Work Phone: [facility]-Pre-Surgical Testing Work Phone: Start: 03-29-2024 End: 03-29-2024 ambulatory DO Sascha Furlong Work Phone: [facility] Work Phone: Start: 03-29-2024 End: 03-29-2024 Patient encounter procedure DO Sascha Furlong Work Phone: [facility] Work Phone: Start: 03-20-2024 End: 03-20-2024 Patient encounter procedure Daria X Orzech [facility] Start: 03-13-2024 End: 03-13-2024 ambulatory DO Sascha Furlong Work Phone: [facility] Work Phone: Start: 03-13-2024 End: 03-13-2024 Patient encounter procedure DO Sascha Furlong Work Phone: [facility] [address] Work Phone: Start: 03-08-2024 End: 03-08-2024 ambulatory DO Sascha Furlong Work Phone: [facility] Work Phone: Start: 03-08-2024 End: 03-08-2024 Patient encounter procedure DO Sascha Furlong Work Phone: [facility]-MRI [address] Work Phone: Start: 03-03-2024 End: 03-03-2024 Refill Sascha G Furlong DO Work Phone: [facility] Internal Medicine - Family Medicine Start: 02-21-2024 End: 02-21-2024 ambulatory DO Sascha Furlong Work Phone: [facility] Work Phone: Start: 02-21-2024 End: 02-21-2024 Patient encounter procedure DO Sascha Furlong Work Phone: [facility] Work Phone: Start: 02-09-2024 End: 02-09-2024 ambulatory DO Sascha Furlong Work Phone: [facility] Work Phone: Start: 02-09-2024 End: 02-09-2024 Patient encounter procedure DO Sascha Furlong Work Phone: [facility] Work Phone: Start: 01-23-2024 End: 02-20-2024 ambulatory SASCHA G FURLONG [facility] Start: 01-18-2024 End: 01-18-2024 Lab Drop off Zac MUNIZ [facility] Start: 01-18-2024 End: 01-18-2024 Patient encounter procedure Zac MUNIZ [facility] Start: 01-11-2024 End: 01-11-2024 ambulatory DO Sascha Furlong Work Phone: [facility] Work Phone: Start: 01-11-2024 End: 01-11-2024 Patient encounter procedure DO Sascha Furlong Work Phone: [facility]-XRay [address] [place] Work Phone: Start: 01-10-2024 End: 01-10-2024 ambulatory DO Sascha Furlong Work Phone: [facility] Work Phone: Start: 01-10-2024 End: 01-10-2024 Patient encounter procedure DO Sascha Furlong Work Phone: [facility]-MRI [address] [place] Work Phone: Start: 01-02-2024 End: 01-03-2024 Emergency department patient visit DO Sascha Furlong Work Phone: [facility]-Emergency Room Work Phone: Start: 12-30-2023 Office outpatient ne w 45 minutes Мария Hernandez [facility] Neurosurgery Start: 12-30-2023 End: 12-30-2023 ambulatory DO Sascha Furlong Work Phone: [facility] Work Phone: Start: 12-30-2023 End: 12-30-2023 Patient encounter procedure DO Sascha Furlong Work Phone: [facility]-XRay [address] [place] Work Phone: Start: 12-28-2023 Chart abstracting Bharath pandya DPM Work Phone: [facility] Start: 12-28-2023 End: 12-28-2023 Office outpatient visit 15 minutes Bharath Cain DPM Work Phone: [facility] Comment on above: Pronation deformity of both feet (Primary Dx); Chronic pain of both knees Start: 12-22-2023 End: 01-20-2024 ambulatory SASCHA MARIEOSMANI [facility] Start: 12-19-2023 End: 12-22-2023 ambulatory SASCHA MARIEOSMANI [facility] Start: 12-15-2023 End: 12-15-2023 ambulatory DO Sascha Furlong Work Phone: [facility] Work Phone: Start: 12-15-2023 End: 12-15-2023 Patient encounter procedure DO Saschajennifer Marielong Work Phone: [facility] Work Phone: Start: 12-14-2023 End: 12-15-20[facility] Start: 12-14-2023 End: 12-14-2023 Office outpatient visit 25 minutes Sascha Sutton DO Work Phone: [facility] Internal Medicine - Family Medicine Comment on above: Essential hypertensi on (Primary Dx); Hyperlipidemia, unspecified hyperlipidemia type; Midline low back pain without sciatica, unspecified chronicity; Class 1 obesity due to excess calories with serious comorbidity and body mass index (BMI) of 33.0 to 33.9 in adult; 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[facility]); Antiphospholipid syndrome ([facility]); Cubital tunnel syndrome on right; Paresthesias Start: 12-08-2023 End: 12-08-2023 ambulatory DO Sascha Cynthialong Work Phone: [facility] Work Phone: Start: 12-08-2023 End: 12-08-2023 Patient encounter procedure DO Saschajennifer Marielong Work Phone: [facility] [address] Work Phone: Start: 10-20-2023 End: 10-20-2023 ambulatory DO Sascha Furlong Work Phone: [facility] Work Phone: Start: 10-20-2023 End: 10-20-2023 Patient encounter procedure DO Sascha Furlong Work Phone: [facility] [address] [place] Work Phone: Start: 09-19-2023 End: 09-19-2023 Patient encounter procedure Zac De Oliveira FLAVIO [facility] Start: 09-12-2023 End: 09-12-2023 ambulatory DO Sascha Furlong Work Phone: [facility] Work Phone: Start: 09-12-2023 End: 09-12-2023 Patient encounter procedure DO Sascha Furlong Work Phone: [facility] [place] Work Phone: Start: 09-05-2023 End: 09-05-2023 ambulatory DO Sascha Furlong Work Phone: [facility] Work Phone: Start: 09-05-2023 End: 09-05-2023 Patient encounter procedure DO Sascha Furlong Work Phone: [facility] [address] Work Phone: Start: 08-16-2023 End: 08-16-2023 ambulatory DO Sascha Furlong Work Phone: [facility] Work Phone: Start: 08-16-2023 End: 08-16-2023 Patient encounter procedure DO Sascha Furlong Work Phone: [facility] [place] Work Phone: Start: 08-08-2023 End: 08-08-2023 Patient encounter procedure [facility]UNIZ [facility] Start: 08-04-2023 End: 08-04-2023 ambulatory DO Sascha Furlong Work Phone: [facility] Work Phone: Start: 08-04-2023 End: 08-04-2023 Patient encounter procedure DO Sascha Furlong Work Phone: [facility] [place] Work Phone: Start: 06-03-2023 End: 06-03-2023 Patient encounter procedure Zac De Oliveira MUNIZ [facility] Start: 05-31-2023 End: 05-31-2023 ambulatory DO Sascha Furlong Work Phone: [facility] Work Phone: Start: 05-31-2023 End: 05-31-2023 Patient encounter procedure DO Sascha Furlong Work Phone: [facility] [address] [place] Work Phone: Start: 05-18-2023 End: 05-18-2023 ambulatory DO Sascha Furlong Work Phone: [facility] Work Phone: Start: 05-18-2023 End: 05-18-2023 Patient encounter procedure DO Sascha Furlong Work Phone: [facility] [place] Work Phone: Start: 05-09-2023 Office outpatient vi sit 15 minutes Sascha G Furlong Work Phone: [facility] DO Work Phone: Start: 05-09-2023 End: 05-09-2023 ambulatory DO Sascha Furlong Work Phone: [facility] Work Phone: Start: 05-09-2023 End: 05-09-2023 Patient encounter procedure DO Sascha Furlong Work Phone: [facility] [place] Work Phone: Start: 05-07-2023 End: 05-07-2023 Emergency department patient visit DO Sascha Furlong Work Phone: [facility]-Emergency Room Work Phone: Start: 05-03-2023 End: 05-03-2023 Emergency department patient visit DO Sascha Furlong Work Phone: [facility]-Emergency Room Work Phone: Start: 04-13-2023 End: 04-13-2023 Patient encounter procedure DO Sascha Furlong Work Phone: [facility]-Respiratory Therapy Work Phone: Start: 04-08-2023 End: 04-08-2023 Patient encounter procedure DO Sascha Furlong Work Phone: [facility] [place] Work Phone: Start: 04-04-[address] Alfonso greenberg Ronnie Facility:[id number] Start: 04-04-2023 End: 04-04-2023 Admission to same day surgery center DO Sascha Furlong Work Phone: [facility]-Desulfurizer Hand Work Phone: Start: 04-04-2023 End: 04-04-2023 ambulatory DO Sascha Furlong Work Phone: [facility] Work Phone: Start: 03-31-2023 End: 03-31-2023 ambulatory DO Sascha Furlong Work Phone: [facility] Work Phone: Start: 03-31-2023 End: 03-31-2023 Patient encounter procedure DO Sascha Furlong Work Phone: [facility] Testing Work Phone: Start: 03-30-2023 Office consultation new/estab patient 80 min Sascha G Furlong Work Phone: -[facility] DO Work Phone: Start: 03-30-[address] Alfonso Trujillo Facility: Start: 03-29-[address] [facility] Start: 03-20-2023 End: 03-22-2023 ambulatory SHAIKH Claritza RANGEL Facility: Start: 01-31-2023 End: 01-31-2023 ambulatory DO Sascha Furlong Work Phone: [facility] Work Phone: Start: 01-31-2023 End: 01-31-2023 Patient encounter procedure DO Sascha Furlong Work Phone: [facility] [address] Work Phone: Start: 10-26-2022 End: 10-26-2022 ambulatory DO Sascha Furlong Work Phone: [facility] Work Phone: Start: 10-26-2022 End: 10-26-2022 Patient encounter procedure DO Sascha Furlong Work Phone: [facility] [address] Start: 09-29-2022 End: 09-29-2022 ambulatory DO Sascha Furlong Work Phone: [facility] Work Phone: Start: 09-29-2022 End: 09-29-2022 Patient encounter procedure DO Sascha Furlong Work Phone: [facility] [place] Start: 07-21-2022 End: 07-21-2022 Patient encounter procedure DO Sascha Sutton Work Phone: [facility] [address] Start: 04-14-2022 End: 04-14-2022 Patient encounter procedure DO Sascha Sutton Work Phone: [facility] [address] Start: 04-09-2022 End: 04-09-[address] AUDIE GONZALES . Facility: Start: 04-25-2018 End: 04-25-2018 [facility] Sascha motley Work Phone: [facility] DO Work Phone: Procedures Date Procedure Procedure Detail Performing Clinician Start: 08-07-2025 Hemolytic complement CH50 level Sascha motley DO Work Phone: Comment on above: Age Male Female 1 - 30 days Not Estab. N ot Estab. 31 days - 6 months >32 >20 7 months - 17 years >39 >39 >17 years >41 >41 NOTE: The adult ( >17 years ) reference interval range is used to flag abnormals on this report. 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 MANAGER Work Phone: Start: 05-28-2025 Adult depression screening assessment Sascha Cynthialong DO Work Phone: Start: 05-07-2025 Adult depression screening assessment Sascha Cynthialong DO Work Phone: Start: 04-16-2025 Adult depression screening assessment Sascha Cynthialong DO Work Phone: Start: 04-10-2025 X-ray of right knee, four views Sascha motley DO Work Phone: Start: 03-13-2025 Back structure, excluding neck (body structure) Zac MUNIZ Comment on above: left lumbar and right lumbar radio frequ ency L3, L4 Start: 02-25-2025 Adult depression screening assessment Saschajennifer Marielong DO Work Phone: Start: 02-15-2025 Plain chest X-ray Sascha Marielong DO Work Phone: Start: 01-25-2025 X-ray of right ankle Saschajennifer Marielong DO Work Phone: Start: 01-25-2025 Follow-up visit Follow-up SASCHA SUTTON Start: 01-25-2025 Adult depression screening assessment Saschajennifer Marielong DO Work Phone: Start: 01-12-2025 CT of head without contrast Saschajennifer Marielo ng DO Work Phone: Start: 01-12-2025 CT of lumbar spine without contrast Saschajennifer Marielong DO Work Phone: Start: 01-12-2025 X-ray of right knee, two views Sascha garciaong DO Work Phone: Start: 12-17-2024 Adult depression screening assessment Sascha Cynthialong DO Work Phone: Start: 11-05-2024 MRI of [...] 04-04-2023 [facility] Angio DO Saschajennifer Marielong Work Phone: Start: 09-29-2022 X-ray of left foot DO Saschajennifer Marielong Work Phone: Start: 06-15-2017 Colonoscopy Saschajennifer Mareilong DO Work Phone: Start: 11-21-2016 Total colonoscopy Sascha Kwanng Work Phone: Arthroplasty of knee Sascha Sutton Work Phone: Arthroplasty of knee Zac MUNIZ Arthroscopy of knee Zac MUNIZ Cleft palate (disorder) Patr ick FLAVIO Colonoscopy Zac MUNIZ Decompression of median nerve Sascha Sutton Work Phone: Decompression of median nerve Zca MUNIZ Dilation of esophagus Sascha Sutton Work Phone: Esophagogastroduodenoscopy P joannaevans MUNIZ Hernia repair Sascha keen Work Phone: Malignant neoplasm o f skin (disorder) Zac MUNIZ Operation on the ear Sascha Kwanng Work Phone: Operative procedure on knee Sascha G Cynthialong Work Phone: Operative procedure on spinal structure Sascha G Cynthialong Work Phone: Procedure on shoulder Ronni k FLAVIO Procedure on spine Zac VENTURA Radio-frequency abla tion system (physical object) Zac MUNIZ Repair of cleft palate Grath Sutton Work Phone: Repair of middle ear [...] Td Vaccines (3 - Td or Tdap) [facility] Start: 05-20-2033 DTaP/Tdap/Td Vaccine s (3 - Td or Tdap) DTaP/Tdap/Td Vaccines (3 - Td or Tdap) [facility] Start: 06-15-2027 Screening for malign ant neoplasm of colon [facility] Start: 06-11-2026 Adult BMI Screening Adult BMI Screen ing [facility] Start: 06-11-2026 Depression Screening Depression Scre [facility] Start: 06-11-2026 Fall Risk Screening Fall Risk Screen ing [facility] Start: 06-11-2026 Tobacco Screening Tobacco Screening [facility] Start: 05-28-2026 Adult BMI Follow Up Plan Adult BMI F ollow Up Plan [facility] Start: 05-28-2026 Adult BMI Screening Adult BMI Screen ing [facility] Start: 05-28-2026 Depression Screening Depression Scre ing [facility] Start: 05-28-2026 Fall Risk Screening Fall Risk Screen ing [facility] Start: 05-28-2026 Tobacco Screening Tobacco Screening [facility] Start: 05-13-2026 End: 05-13-2026 Patient encounter procedure 05/13/2026 10:20 AM EDT Office Visit [facility] - [facility] Medicine [address] [place] [id number] [facility] Start: 05-07-2026 Adult BMI Screening Adult BMI Screen ing [facility] Start: 05-07-2026 Depression Screening Depression Scre ening [facility] Start: 05-07-2026 Fall Risk Screening Fall Risk Screen ing [facility] Start: 05-07-2026 Medicare Annual Well ness Visit Medicare Annual Wellness Visit [facility] Start: 04-16-2026 Adult BMI Screening Adult BMI Screen ing [facility] Start: 04-16-2026 Depression Screening Depression Scre ening [facility] Start: 04-16-2026 Fall Risk Screening Fall Risk Screen ing [facility] Start: 04-16-2026 Tobacco Screening Tobacco Screening [facility] Start: 02-25-2026 Adult BMI Screening Adult BMI Screen ing [facility] Start: 02-25-2026 Depression Screening Depression Scre ening [facility] Start: 02-25-2026 Fall Risk Screening Fall Risk Screen ing [facility] Start: 01-29-2026 Adult BMI Screening Adult BMI Screen ing [facility] Start: 01-29-2026 Tobacco Screening Tobacco Screening [facility] [facility] Start: 01-25-2026 Adult BMI Screening Adult BMI Screen ing [facility] Start: 01-25-2026 Depression Screening Depression Scre ening [facility] Start: 01-25-2026 Fall Risk Screening Fall Risk Screen ing [facility] Start: 01-25-2026 Tobacco Screening Tobacco Screening [facility] Start: 12-18-2025 End: 12-18-2025 Patient encounter procedure [facility] Start: 10-09-2025 Adult BMI Screening Adult BMI Screen ing [facility] Start: 10-09-2025 Tobacco Screening Tobacco Screening [facility] Start: 09-24-2025 Adult BMI Screening Adult BMI Screen ing [facility] Start: 09-24-2025 Depression Screening Depression Scre ening [facility] Start: 09-24-2025 Tobacco Screening Tobacco Screening [facility] Start: 09-19-2025 End: 09-19-2025 Patient encounter procedure 09/19/2025 11:50 AM EDT Procedure Visit [facility] [address] [place] [address] Kali Conklin DPM 50[address] [facility] 5 [place] [address] [facility] Start: 09-16-2025 End: 09-16-2025 Patient encounter procedure [facility] Start: 08-07-2025 Hemolytic complement CH50 level [facility] Start: 07-22-2025 Influenza vaccination [employer] [facility] Start: 07-17-[address] [facility] Start: 07-17-2025 End: 07-17-2026 C reactive protein [Mass/volume] in Serum or Plasma C-reactive protein Lab Routine Neuropathy Rheumatoid arthritis, involving unspecified site, unspecified whether rheumatoid factor present (HCC) Expected: 07/17/2025 (Approximate), Expires: 07/17/2026 [facility] Healthcare Comment on above: Expected: 07/17/2025 (Approximate), Expires: 07/17/2026 Start: 07-17-2025 End: 07-17-2026 EEG 2-12HRS,CONT EEG 2-12HRS,CONT Neurology Routine Syncope, unspecified syncope type Expected: 07/17/2025 (Approximate), Expires: 07/17/2026 [facility] Comment on above: Expected: 07/17/2025 (Approximate), Expires: 07/17/2026 Start: 07-17-2025 End: 07-17-2026 EMG 2 Extremities EMG 2 Extremities Neurology Routine Neuropathy Expected: 07/17/2025 (Approximate), Expires: 07/17/2026 [facility] Comment on above: Expected: 07/17/2025 (Approximate), Expires: 07/17/2026 Start: 07-17-2025 End: 07-17-2026 Erythrocyte sedimentation rate Sedimentation rate, automated Lab Routine Rheumatoid arthritis, involving unspecified site, unspecified whether rheumatoid factor present (HCC) Expected: 07/17/2025 (Approximate), Expires: 07/17/2026 [facility] Comment on above: Expected: 07/17/2025 (Approximate), Expires: 07/17/2026 Start: 07-17-2025 End: 07-17-2026 Home sleep test Home sleep test Sleep Center Routine Hypersomnia with sleep apnea Expected: 07/17/2025 (Approximate), Expires: 07/17/2026 [facility] Comment on above: Expected: 07/17/2025 (Approximate), Expires: 07/17/2026 Start: 07-17-2025 End: 07-17-2025 Patient encounter procedure 07/17/2025 2:00 PM EDT Office Visit [facility] Mg Neurology [address] [place] [address] Shabnam Connell, [employer]BBLE [employer]ACER [address] [facility] , [facility] [address] [place] [address] [facility] Mg Neurology Start: 07-17-2025 End: 07-17-2026 Rheumatoid factor [Units/volume] in Serum or Plasma [facility] Comment on above: Expected: 07/17/2025 (Approximate), Expires: 07/17/2026 Start: 07-17-2025 End: 07-17-2026 SSA ANTIBODY ([facility]) [facility] ANTIBODY ([facility]) Lab Routine Syncope, unspecified syncope type Neuropathy Expected: 07/17/2025 (Approximate), Expires: 07/17/2026 [facility] Work Phone: Comment on above: Expected: 07/17/2025 (Approximate), Expires: 07/17/2026 Start: 07-17-2025 End: 07-17-2026 SSB ANTIBODY ([facility]) SSB ANTIBODY ([facility]) Lab Routine Syncope, unspecified syncope type Neuropathy Expected: 07/17/2025 (Approximate), Expires: 07/17/2026 [facility] Comment on above: Expected: 07/17/2025 (Approximate), Expires: 07/17/2026 Start: 06-27-2025 End: 06-27-2025 Patient encounter procedure 06/27/2025 11:50 AM EDT Procedure Visit [facility] [address] [facility] [address] [place] [address] Kali Conklin DPM [address] [address] Pain due to onychomycosis of toenails of [...] bilateral carotid arteries US carotid doppler BI [facility] Start: 06-25-2025 US.doppler Carotid arteries - [facility] Start: 06-20-2025 End: 06-20-2027 Holter monitor study Holter Or Event Miller Head Assistant [facility] Cardiac Services Routine Syncope, unspecified syncope type PVC (premature ventricular contraction) Expected: 06/20/2025 (Approximate), Expires: 06/20/2027 [facility] Service Area Work Phone: Comment on above: Expected: 06/20/2025 (Approximate), Expires: 06/20/2027 Start: 06-20-2025 End: 06-20-2027 Tilt table study Tilt Table Cardiac Services Routine Syncope, unspecified syncope type PVC (premature ventricular contraction) Expected: 06/20/2025 (Approximate), Expires: 06/20/[address] [facility] Work Phone: Comment on above: Expected: 06/20/2025 (Approximate), Expires: 06/20/2027 Start: 06-20-2025 End: 06-20-2027 US.doppler Carotid arteries - bilateral Vascular US Carotid Artery Duplex Bilateral Vascular Ultrasound Routine Syncope, unspecified syncope type Expected: 06/20/2025 (Approximate), Expires: 06/20/[address] [facility] Work Phone: Comment on above: Expected: 06/20/2025 (Approximate), Expires: 06/20/2027 Start: 06-20-2025 End: 06-20-2025 Patient encounter procedure 06/20/2025 10:00 AM EDT Procedure Visit [facility] [address] [place] [address] Kali Conklin DPM [address] [facility] 5 [place] [address] [facility] Start: 06-14-2025 Adult BMI Screening Adult BMI Screen ing [facility] Start: 06-14-2025 Depression Screening Depression Scre ening [facility] Start: 06-14-2025 Tobacco Screening Tobacco Screening [facility] Start: 05-28-2025 End: 05-28-2025 Patient encounter procedure 05/28/2025 2:45 PM EDT Office Visit [facility] Internal Medicine - Family Medicine [address] [place] [address] Sascha Sutton, DO [address], [facility] [place] [address] [facility] Internal Medicine - Family Medicine Start: 05-15-2025 End: 05-15-2025 Patient encounter procedure [facility] Comment on above: Arrived Start: 05-07-2025 End: 05-07-2025 Patient encounter procedure 05/07/2025 9:40 AM EDT Office Visit [facility] Internal Medicine - Family Medicine [address] [place] [address] [facility] Internal Medicine - Family Medicine Start: 05-01-2025 Adult BMI Screening Adult BMI Screen ing [facility] Lalina [facility] Start: 05-01-2025 Depression Screening Depression Scre ening [facility] Start: 05-01-2025 Fall Risk Screening Fall Risk Screen ing [facility] Start: 05-01-2025 Medicare Annual Well ness Visit Medicare Annual Wellness Visit [facility] Start: 04-18-2025 Hemolytic complement CH50 [facility] Start: 04-09-2025 End: 04-09-2025 Patient encounter procedure [...] [facility] [address] [place] [address] Kali Conklin DPM 3[address] [facility] [address] [place] [address] [facility] Start: 03-20-2025 End: 03-20-2025 Patient encounter procedure 03/20/2025 10:20 AM EDT Office Visit [facility] [address] [facility] [address] [place] [address] Whit Taylor MD [address] [facility] [address] [address] [facility] Start: 02-25-2025 End: 02-25-2025 Patient encounter procedure 02/25/2025 1:30 PM EDT Office Visit [facility] Internal [facility] - Family Medicine [address] [place] [address] Sascha Sutton, DO [address], [facility] [place] [address] [facility] - [facility] Start: 02-21-2025 End: 02-21-2025 Patient encounter procedure 02/21/2025 9:30 AM EDT Office Visit [facility] [address] [facility] [address] [place] [address] Kali Conklin DPM 3[address] [facility] [address] [place] [address] Tenosynovitis of right lower leg (Primary Dx); Su splint, right, initial encounter; 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 Start: 02-16-2025 Referral to account executive healthcare [facility] Start: 02-15-2025 Hospital admission [facility] Start: 02-07-2025 End: 02-07-2025 Patient encounter procedure 02/07/2025 10:00 AM EDT Office Visit [facility] [address] [facility] [address] [place] [address] Kali Conklin DPM [address] [address] Xerosis cutis (Primary Dx); Tenosynovitis of right lower leg; Su splint, right, initial encounter; Contracture of right ankle [facility] Comment on above: Xerosis cutis (Prima ry Dx); Tenosynovitis of right lower leg; Su splint, right, initial encounter; Contracture of right ankle Start: 01-30-2025 End: 01-30-2025 Patient encounter procedure 01/30/2025 4:40 PM EDT Office Visit [facility] [address] [place] [address] Kali Conklin DPM [address] [address] 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 Start: 01-10-2025 End: 01-10-2025 Patient encounter procedure 01/10/2025 1:10 PM EST Procedure Visit [facility] [address] [facility] [address] [place] [address] Kali Conklin, HUGOM [address] [address] [facility] Start: 12-19-2024 End: 12-19-2024 Patient encounter procedure [facility] Comment on above: Arrived Start: 12-17-2024 End: 12-17-2024 Patient encounter procedure [facility] - [facility] Comment on above: Arrived Start: 12-14-2024 Adult BMI Screening Adult BMI Screen ing [facility] Start: 12-14-2024 Depression Screening Depression Scre ening [facility] Start: 12-14-2024 Fall Risk Screening Fall Risk Screen ing [facility] Start: 12-14-2024 End: 11-26-2025 Lipid panel Lipid panel Lab Routine Hyperlipidemia, unspecified hyperlipidemia type Expected: 12/14/2024, Expires: 11/26/2025 [facility] Comment on above: Expected: 12/14/2024 , Expires: 11/26/2025 Start: 12-14-2024 Tobacco Screening Tobacco Screening [facility] Start: 12-12-2024 End: 12-12-2024 Patient encounter procedure 12/12/2024 2:15 PM EST Office Visit [facility] [address] [place] [address] Carlos Eden, DO [address] [facility] [address] [facility] Start: 12-06-2024 End: 12-06-2024 Patient encounter procedure 12/06/2024 10:20 AM EST Office Visit [facility] [address] [facility] [address] [place] [address] Kali Conklin, DPM 3[address] [facility] [address] [place] [address] Exostosis of both feet (Primary Dx) [facility] [...] Arrived Start: 10-10-2024 Hemolytic complement CH50 level [facility] Start: 10-08-2024 Influenza vaccination Influenza Vacc ine [facility] Comment on above: Postponed from 07/22 (Patient Ill Today) Start: 08-29-2024 Plain X-ray of right hip XR hi p RT min 2V(w/wo pelvis)* [facility] Start: 08-29-2024 XR Hip - right [address] [facility] Start: 08-20-2024 Patient referral [facility] Work Phone: Start: 08-17-2024 End: 08-17-2024 Patient encounter procedure 08/17/2024 2:40 PM EDT Office Visit [facility] [address] [place] [address] Kali Conklin DPM 3[address] [facility] [address] [place] [address] Arrived [facility] Comment on above: Arrived Start: 07-22-2024 COVID-19 Vaccine ( season) COVID-19 Vaccine ( season) [facility] Start: 07-22-2024 Influenza vaccination N [facility] Start: 07-03-2024 Hemolytic complement CH50 [facility] Start: 06-14-2024 End: 06-14-2024 Patient encounter procedure 06/14/2024 1:30 PM EDT Office Visit [facility] Internal [facility] - Family Medicine [address] [place] [address] Sascha Sutton DO [address], [facility] [place] [address] [facility] - [facility] Start: 05-01-2024 End: 05-01-2024 Patient encounter procedure 05/01/2024 10:20 AM EDT [facility] - [facility] [address] [place] [address] [facility] - [facility] Start: 04-14-2024 Medicare Annual Well ness Visit Medicare Annual Wellness Visit [facility] Start: 04-09-2024 Hospital admission [facility] Start: 04-09-2024 End: 04-09-[address] [facility] Start: 03-13-2024 Hemolytic complement CH50 [facility] Start: 01-25-2024 End: 01-25-2024 Patient encounter procedure 01/25/2024 11:15 AM EST Office Visit [facility] [address] [place] [address] Bharath Cain, DPM [address] [facility] [place] [address] [facility] Start: 01-10-2024 MRI of lumbar spine with contrast MR lumbar spine wo/w [facility] Start: 01-03-2024 CT Abdomen and Pelvi s WO contrast [facility] Start: 01-03-2024 CT of abdomen and pe lvis without contrast CT abdomen pelvis wo [facility] Start: 12-28-2023 End: 12-28-2023 Patient encounter procedure 12/28/2023 2:00 PM EST Office Visit [facility] [address] [facility] [place] [address] Bharath Cain, DPM [address] [place] [address] [place] [address] [facility] Start: 12-14-2023 End: 12-14-2024 XR Lumbar spine 2 or 3 Views X-ray spine lumbar 2 or 3 views Imaging Routine Midline low back pain without sciatica, unspecified chronicity Expected: 12/14/2023, Expires: 12/14/2024 [facility] Work Phone: Comment on above: Expected: 12/14/2023 , Expires: 12/14/2024 Start: 12-08-2023 Hemolytic complement CH50 [facility] Start: 10-18-2023 COVID-19 Vaccine ( season) COVID-19 Vaccine () [facility] Start: 09-20-2023 COVID-19 Vaccine (3 - Pfizer risk series) COVID-19 Vaccine (3 - Pfizer risk series) [facility] Start: 09-05-2023 Hemolytic complement CH50 [facility] Start: 08-16-[address] [facility] Start: 05-31-2023 Hemolytic complement CH50 [facility] Start: 05-18-[address] [facility] Start: 05-12-2023 FUV, Provider: Alfonso Trujillo, Status: Pen, Time: 10:00 AM FUV, Provider: Alfonso Trujillo, Status: Pen, Time: 10:00 AM -[facility] DO Work Phone: Start: 05-09-2023 FUV, Provider: Germaine Brown, Status: Pen, Time: 10:30 AM FUV, Provider: Germaine Brown, Status: Pen, Time: 10:30 AM -[facility] 250 DO Work Phone: Start: 04-04-[address] [facility] Start: 04-04-2023 SURGNONUH, Provider: Alfonso Trujillo, Status: Pen, Time: 11:00 AM SURGNONUH, Provider: Alfonso Trujillo, Status: Pen, Time: 11:00 AM [facility] 250 DO Work Phone: Start: 01-31-2023 Hemolytic complement CH50 level [facility] Start: 10-26-2022 Hemolytic complement CH50 level [facility] Start: 2022 Abdominal aortic ane urysm screening [facility] Start: 2007 Prostate specific an tigen measurement PSA Prostate Cancer Screening [facility] Start: 2002 Screening for malign ant neoplasm of colon Colonoscopy [facility] Start: 1975 Adult BMI Follow Up Plan Adult BMI F ollow Up Plan [facility] Start: 1975 Diabetes mellitus screening Diabetes Screening [facility] Start: 1975 Hepatitis C screening Hepatitis C Sc reening [facility] Start: 1958 MMR Vaccines (1 of 1 - Standard series) MMR Vaccines (1 of 1 - Standard series) [facility] Start: 1957 Lipid panel Lipid Panel [facility] Start: 1957 Medicare Annual Well ness Visit Medicare Annual Wellness Visit (AWV) [facility] Start: 1957 Screening for malign ant neoplasm of colon [facility] Bilirubin measurement [facility] Body weight [facility] Calcium [Mass/time] in 24 hour Urine [facility] Calcium [Mass/volume ] in 24 hour Urine [facility] Calcium carbonate/To eligio in [facility] Calcium hydrogen phosphate dihydrate/Total in [facility] Calcium oxalate monohydrate/Total in [facility] Calcium phosphate level [facility] Calculus analysis wi th calculus photography [Interpretation] in Stone [facility] Calculus analysis, qualitative [facility] Calculus analysis, quantitative [facility] Calculus analysis, quantitative, infrared spectroscopy [facility] Cellular material [Mass/mass] of Stone by Estimated [facility] Cholesterol [Mass/vo lume] in Serum or Plasma [facility] Complement C3 [Mass/volume] in Serum or Plasma [facility] Work Phone: Complement C3 [Mass/volume] in Serum or Plasma [facility] Complement C3 [Mass/volume] in Serum or Plasma [facility] Complement C3 [Mass/volume] in Serum or Plasma [facility] Complement C3 [Mass/volume] in Serum or Plasma [facility] Complement C3 [Mass/volume] in Serum or Plasma [facility] Complement C3 [Mass/volume] in Serum or Plasma [facility] Complement C3 [Mass/volume] in Serum or Plasma [facility] Complement C3 [Mass/volume] in Serum or Plasma [facility] Complement C4 [Mass/volume] in Serum or Plasma [facility] Work Phone: Complement C4 [Mass/volume] in Serum or Plasma [facility] Complement C4 [Mass/volume] in Serum or Plasma [facility] Complement C4 [Mass/volume] in Serum or Plasma [facility] Complement C4 [Mass/volume] in Serum or Plasma [facility] Complement C4 [Mass/volume] in Serum or Plasma [facility] Complement C4 [Mass/volume] in Serum or Plasma [facility] Complement C4 [Mass/volume] in Serum or Plasma [facility] Complement C4 [Mass/volume] in Serum or Plasma [facility] End: 11-26-2025 Comprehensive metabolic 2000 panel - Serum or Plasma Comprehensive metabolic panel Lab Routine Essential hypertension 1 Occurrences starting 11/26/2024 until 11/26/2025 [facility] Work Phone: Comment on above: 1 Occurrences starti ng 11/26/2024 until 11/26/2025 Cystine measurement [facility] Determination of elizabeth culus chemical composition [facility] Evaluation procedure [facility] Hemolytic complement CH50 level [facility] Work Phone: Hydroxyapatite [Ener gy Difference] in 24 hour [address]rine [facility] Laboratory data interpretation [facility] Magnesium [Mass/time ] in 24 hour [address] [facility] Magnesium [Mass/volu me] in Urine [facility] MR Cervical spine WO contrast [facility] Newberyite/Total in Stone [facility] Oxalate [Mass/time] in 24 [address] [facility] Patient Education [facility] Work Phone: Patient referral [facility] Work Phone: Phosphate [Mass/time ] in 24 hour [address] [facility] Phosphate [Mass/volu me] in Urine [facility] End: 11-26-2025 Prostatic specific antigen screen Prostatic specific antigen screen Lab Routine Encounter for screening for malignant neoplasm of prostate 1 Occurrences starting 11/26/2024 until 11/26/2025 [employer] [facility] Comment on above: 1 Occurrences starti ng 11/26/2024 until 11/26/2025 Sjogrens syndrome-A extractable nuclear Ab [Units/volume] in Serum [facility] Sjogrens syndrome-B extractable nuclear Ab [Units/volume] in Serum [facility] Specimen source subj ect [Type] [facility] Triamterene measurement [facility] Triple phosphate/Tot al in Stone [facility] Urate [Mass/time] in [address] [facility] Urate [Mass/volume] in Urine [facility] Immunizations Immunization Date Immunization Notes Care Provider Elvi magana 11-03-2024 influenza, high dose seasonal, preservative-free Carlos Eden DO Work Phone: [facility] 11-03-2024 influenza virus vacc ine, unspecified formulation Kali Conklin DPM Work Phone: [facility] 09-06-2024 pneumococcal polysaccharide vaccine, 23 valent Sascha Sutton DO Work Phone: [facility] 03-06-2024 COVID-19 (MODERNA) 12Y and older DO Sascha Marielong Work Phone: [facility] 08-23-2023 Covid-19, Mrna, Lnp- s, Pf,erasmo-sucrose,30 Mcg/0.3ml Fall23 DO Sascha Kwanng Work Phone: [facility] 08-23-2023 influenza virus vacc ine, unspecified formulation Zac MUNIZ [facility] 08-23-2023 Influenza, High-dose , Quadrivalent Sascha Aquilesng DO Work Phone: [facility] 08-23-2023 RSV vaccine, preF A- preF B, recombinant Zacgreyson MUNIZ [facility] 08-23-2023 RSV, bivalent, prote in subunit RSVpreF, diluent reconstituted, 0.5 mL, PF Sascha Sutton DO Work Phone: [facility] 05-20-2023 tetanus toxoid, redu coni diphtheria toxoid, and acellular pertussis vaccine, adsorbed Zacgreyson MUNIZ [facility] 12-05-2022 influenza virus vacc ine, unspecified formulation Zac MUNIZ [facility] 12-05-2022 influenza, seasonal, injectable Sascha G long Work Phone: [employer] 250 DO Work Phone: 10-08-2022 Pfizer COVID-19 Vac Bivalent 30 MCG/0.3ML Intramuscular Suspension Sascha Sutton Work Phone: [facility] 10-08-2022 SARS-COV-2 (COVID-19 ) Vaccine, Unspecified Sascha Furlong DO Work Phone: [facility] 09-07-2022 Fluzone High-Dose Quadrivalent 0.7 ML Intramuscular Suspension Prefilled Syringe Sascha Sutton Work Phone: [facility] 09-07-2022 influenza virus vacc ine, unspecified formulation [employer] [facility] 04-16-2022 Prevnar 20 0.5 ML Intramuscular Suspension Prefilled Syringe Sascha Sutton Work Phone: [facility] 09-23-2021 Lizeth COVID-19 Vac cine 0.5 ML Intramuscular Suspension Sascha Kwanng Work Phone: [facility] 07-28-2021 influenza virus vacc ine, unspecified formulation [employer] [facility] 07-28-2021 influenza, injectabl e, quadrivalent, preservative free Saschajennifer Marielong Work Phone: [employer] 250 DO Work Phone: 01-26-2021 Lizeth COVID-19 Vac cine 0.5 ML Intramuscular Suspension Sascha Marielong Work Phone: [facility] 08-22-2020 influenza virus vacc ine, unspecified formulation [employer] [facility] 08-22-2020 Influenza, injectabl e, Madin Hilda Canine Kidney, preservative free, quadrivalent Sascha Teagan Furlong Work Phone: [employer] 250 DO Work Phone: 08-26-2019 zoster vaccine recombinant Sascha G Furlong Work Phone: [facility] 08-20-2019 influenza virus vacc ine, unspecified formulation Zac [employer] [facility] 08-20-2019 Influenza, injectabl e, Madin Hilda Canine Kidney, quadrivalent with preservative Sascha G Furlong Work Phone: [facility] 06-27-2019 zoster vaccine recombinant Sascha G Furlong Work Phone: [facility] 09-05-2018 influenza virus vacc ine, unspecified formulation Zac [employer] [facility] 09-05-2018 Influenza, injectabl e, Madin [place] Canine Kidney, preservative free, quadrivalent Sascha G Furlong Work Phone: [facility] 07-28-2017 Influenza, injectabl e, Madin Hilda Canine Kidney, preservative free, quadrivalent Sascha Furlong DO Work Phone: [facility] 09-16-2016 pneumococcal conjuga te vaccine, 13 valent Sascha G Furlong Work Phone: [facility] 09-09-2016 influenza virus vacc ine, unspecified formulation Zac MUNIZ [facility] 09-09-2016 influenza, injectabl e, quadrivalent, contains preservative Sascha G Furlong Work Phone: [facility] DO Work Phone: 12-05-2012 pneumococcal polysaccharide vaccine, 23 valent Sascha G Furlong Work Phone: [facility] 12-05-2012 tetanus toxoid, redu coni diphtheria toxoid, and acellular pertussis vaccine, adsorbed Sascha Sutton Work Phone: [facility] 11-20-1990 hepatitis B vaccine, pediatric or pediatric/adolescent dosage Sascha Sutton Work Phone: [facility] 10-04-1990 hepatitis B vaccine, pediatric or pediatric/adolescent dosage Sascha Sutton Work Phone: [facility] Payers Date Payer Category Payer Medicare supplementa l policy (as second payer) [facility] Member Subscriber Plan / Payer (Effective 2024-Present) Name: Valentin Torre Relation to Subscriber: Self Name: Valentin Torre Payer ID: Not on file Group ID: Not on file Type: Not on file Address: [facility] [address] [place] [id number] 2024 Self-pay [id number] 2023 Unknown 2022 Managed Care Other (unspecified) [facility] [id number] 2022 Medicare [id number]. 1.13.693. [id number] 2022 Private Health Insurance 1.2 .840.582352.1.13.693. [id number] 2022 Medicare [id number] 1959 Medicare [id number] 1959 Unknown [id number] 1957 Unknown [id number] 2.16.840.1.322622.3.579. 2.593 1957 Unknown [id number] 2.16.840.1.523778.3.579. 2.593 1957 Unknown [id number] 2.16840.1.675971.3.579. 2.356 1957 Unknown [id number] 2.16.840.1.773012.3.579. 2.356 1957 Unknown [id number] 2.16.840.1.646868.3.579. 2.356 1957 Unknown [id number] 2.16.840.1.909850.3.579. 2.1286 1957 Unknown [id number] 2.16.840.1.978303.3.579. 2.128 1957 Unknown [id number] 2.16.840.1.344803.3.579. 2.128 1957 Unknown [id number] 2.16.840.1.251964.3.579. 2.128 1957 Unknown [id number] 2.16.840.1.594849.3.579. 2.1286 1957 Unknown [id number] 2.16.840.1.879983.3.579. 2.1285 1957 Unknown [id number] 2.16.840.1.376260.3.579. 2.1285 1957 Unknown [id number] 2.16.840.1.307141.3.579. 2.1285 1957 Unknown [id number] 2.16.840.1.029550.3.579. 2.1285 1957 Unknown [id number] 2.16.840.1.242455.3.579. 2.1285 1957 Unknown [id number] 2.16840.1.339268.3.579. 2.1285 1957 Unknown [id number] 2.16840.1.477953.3.579. 2.1285 1957 Unknown [id number] 2.840.1.967470.3.579. 2.1285 1957 Unknown [id number] 2.840.1.268872.3.579. 2.1285 1957 Unknown [id number] 2.840.1.963123.3.579. 2.1285 1957 Unknown [id number] 2.16840.1.421449.3.579. 2.1258 1957 Unknown [id number] 2.840.1.149433.3.579. 2.1258 1957 Unknown [id number] 2.16840.1.798245.3.579. 2.1258 1957 Unknown [id number] 2.16840.1.732021.3.579. 2.1258 1957 Unknown [id number] 2.16.840.1.664849.3.579. 2.1258 1957 Unknown [id number] 2.16840.1.475118.3.579. 2.1258 1957 Unknown [id number] 2.16.840.1.180964.3.579. 2.1258 1957 Unknown [id number] 2.16.840.1.347766.3.579. 2.1258 1957 Unknown [id number] 2.16.840.1.139518.3.579. 2.1258 1957 Unknown [id number] 2.16.840.1.390745.3.579. 2.1258 1957 Unknown [id number] 2.16.840.1.101249.3.579. 2.1258 1957 Unknown [id number] 2.16.840.1.748106.3.579. 2.1258 1957 Unknown [id number] 2.16.840.1.569059.3.579. 2.1258 1957 Unknown [id number] 2.16.840.1.713156.3.579. 2.1258 1957 Unknown [id number] 2.16.840.1.784512.3.579. 2.1258 1957 Unknown [id number] 2.16.840.1.594591.3.579. 2.1258 1957 Unknown [id number] 2.16.840.1.894368.3.579. 2.1258 1957 Unknown [id number] 2.16.840.1.029754.3.579. 2. 1957 Unknown [id number] 2.16.840.1.183481.3.579. 2. 1957 Unknown [id number] 2.16.840.1.814786.3.579. 2. 1957 Unknown [id number] 2.16.840.1.242087.3.579. 2. 1957 Unknown [id number] 2.16.840.1.970978.3.579. 2.727 1957 Unknown [id number] 2.840.1.914966.3.579. 2. 1957 Unknown [id number] 2.840.1.161149.3.579. 2. 1957 Unknown [id number] 2.840.1.759461.3.579. 2. 1957 Unknown [id number] 2.840.1.123795.3.579. 2. 1957 Unknown [id number] .840.1.771337.3.579. 2. 1957 Unknown [id number] 2.840.1.498134.3.579. 2.1244 1957 Unknown [id number] .0.1.370138.3.579. 2 Unknown [id number] Unknown [facility] [id number] Unknown [facility] [id number] Unknown [id number] 2840.1.258060.3.579. 2.531 Unknown [id number] 840.1.407741.3.579. 2.531 Unknown [id number] .840.1.812847.3.579. 2.531 Unknown [id number] 2.840.1.324438.3.579. 2.531 Unknown [id number] 2.840.1.133656.3.579. 2.531 Unknown [id number] 2.840.1.240493.3.579. 2.531 Unknown [id number] 2.840.1.448747.3.579. 2.531 Unknown [id number] 2.16.840.1.358165.3.579. 2.531 Unknown [id number] 2.16.840.1.832817.3.579. 2.531 Unknown [id number] 2.16.840.1.731831.3.579. 2.531 Unknown [id number] 2.16.840.1.029072.3.579. 2.531 Unknown [id number] 2.16.840.1.903100.3.579. 2.531 Unknown [id number] 2.16.840.1.752530.3.579. 2.531 Unknown [id number] 2.16.840.1.372630.3.579. 2.531 Unknown [id number] 2.16.840.1.012276.3.579. 2.531 Unknown [id number] 2.16.840.1.773961.3.579. 2.531 Unknown [id number] 2.16.840.1.653657.3.579. 2.531 Unknown [id number] 2.16.840.1.281797.3.579. 2.531 Social History Date Type Detail Facility Start: 10-17-2019 End: 05-28-2025 Tobacco smoking status AKIS Ex-smoker (finding) [facility] Start: 1955 Sex Assigned At Male [facility] Start: 04-14-2023 End: 12-28-2023 No alcohol use No alcohol use [facility] Comment on above: pop occasioanl; quit in the 's; Start: 04-14-2023 End: 12-28-2023 Sex Assigned At Male [facility] Start: 03-29-2023 Tobacco smoking status Never [facility] Start: 12-26-2023 Tobacco smoking stat us AKIS Never smoked tobacco [facility] Start: 12-26-2023 End: 05-28-2025 Tobacco use and exposure Smokeless tobacco non-user [facility] Start: 12-26-2023 End: 06-27-2025 Alcohol intake Lifetime non-drinker (finding) [facility] Start: 12-26-2023 Alcohol Comment none caffeine [facility] Start: 1955 Sex Assigned At Not on file [facility] Start: 06-26-2015 End: 10-11-2024 Sex Male (finding) [facility] Start: 05-28-1975 End: 05-28-1987 History of tobacco use Current smoker [facility] Start: 05-28-1975 End: 05-28-1987 History of tobacco use Cigarette Smoker [facility] History of tobacco use Passive smoker [facility] Start: 10-09-2024 End: 06-11-2025 Alcoholic beverage intake Ex-drinker (finding) [facility] Has the [employer] [facility], oil, or water [employer] threatened to shut off services in your home in past 12Mo No [facility] Do you belong to any clubs or organizations such as mandaen groups, unions, fraternal or athletic groups, or school groups? Yes [facility] Are you now , , [...] Health System Sexual Orientation [facility] Medical Equipment Procedure Code Equipment Code Equipment Origin al Text Equipment Identifier Dates CAGE [id number] 6DE G [employer] FDA Start: 07-24-2019 SCREW [...] 6X45MM POLY AESCULAP FDA Start: 07-24-2019 CAGE [id number] 6DE G [employer] FDA Start: 07-24-2019 SCREW [...] 6X45MM POLY AESCULAP FDA Start: 07-24-2019 CAGE [id number] 6DE G [employer] FDA Start: 07-24-2019 SCREW [...] 6X45MM POLY AESCULAP FDA Start: 07-24-2019 CAGE [id number] 6DE G [employer] FDA Start: 07-24-2019 SCREW [...] 6X45MM POLY AESCULAP FDA Start: 07-24-2019 CAGE [id number] 6DE G [employer] FDA Start: 07-24-2019 SCREW [...] 6X45MM POLY AESC[employer]AP FDA Start: 07-24-2019 CAGE [id number] 6DE G [employer] FDA Start: 07-24-2019 SCREW [...] 6X45MM POLY AESCULAP FDA Start: 07-24-2019 CAGE [id number] 6DE G [employer] FDA Start: 07-24-2019 SCREW [...] 6X45MM POLY AESCULAP FDA Start: 07-24-2019 CAGE [id number] 6DE G [employer] FDA Start: 07-24-2019 SCREW [...] 6X45MM POLY AESC[employer]AP FDA Start: 07-24-2019 CAGE [id number] 6DE G [employer] FDA Start: 07-24-2019 SCREW [...] 6X45MM POLY [employer]AP FDA Start: 07-24-2019 CAGE [id number] 6DE G [employer] FDA Start: 07-24-2019 SCREW [...] 6X45MM POLY [employer] FDA Start: 07-24-2019 CAGE [id number] 6DE G [employer] FDA Start: 07-24-2019 SCREW [...] 6X45MM POLY AESC[employer]AP FDA Start: 07-24-2019 CAGE [id number] 6DE G [employer] FDA Start: 07-24-2019 SCREW [...] 6X45MM POLY [employer]AP FDA Start: 07-24-2019 CAGE [id number] 6DE G [employer] FDA Start: 07-24-2019 SCREW [...] 6X45MM POLY AESCULAP FDA Start: 07-24-2019 CAGE [id number] 6DE G [employer] FDA Start: 07-24-2019 SCREW [...] 6X45MM POLY [employer]AP FDA Start: 07-24-2019 CAGE [id number] 6DE G [employer] FDA Start: 07-24-2019 SCREW [...] 6X45MM POLY AESCULAP FDA Start: 07-24-2019 CAGE [id number] 6DE G [employer] FDA Start: 07-24-2019 SCREW [...] 6X45MM POLY AESCULAP FDA Start: 07-24-2019 CAGE [id number] 6DE G [employer] FDA Start: 07-24-2019 SCREW [...] 6X45MM POLY AESCULAP FDA Start: 07-24-2019 CAGE [id number] 6DE G [employer] FDA Start: 07-24-2019 SCREW [...] 6X45MM POLY AESCULAP FDA Start: 07-24-2019 CAGE [id number] 6DE G [employer] FDA Start: 07-24-2019 SCREW [...] 6X45MM POLY AESCULAP FDA Start: 07-24-2019 CAGE [id number] 6DE G [employer] FDA Start: 07-24-2019 SCREW [...] 6X45MM POLY AESCULAP FDA Start: 07-24-2019 CAGE [id number] 6DE G [employer] FDA Start: 07-24-2019 SCREW [...] 6X45MM POLY AESCULAP FDA Start: 07-24-2019 CAGE [id number] 6DE G [employer] FDA Start: 07-24-2019 SCREW [...] 6X45MM POLY AESCULAP FDA Start: 07-24-2019 CAGE [id number] 6DE G [employer] FDA Start: 07-24-2019 SCREW [...] 6X45MM POLY AESCULAP FDA Start: 07-24-2019 CAGE [id number] 6DE G [employer] FDA Start: 07-24-2019 SCREW [...] 6X45MM POLY AESCULAP FDA Start: 07-24-2019 CAGE [id number] 6DE G [employer] FDA Start: 07-24-2019 SCREW [...] 6X45MM POLY AESCULAP FDA Start: 07-24-2019 CAGE [id number] 6DE G [employer] FDA Start: 07-24-2019 SCREW [...] 6X45MM POLY AESCULAP FDA Start: 07-24-2019 CAGE [id number] 6DE G [employer] FDA Start: 07-24-2019 SCREW [...] 6X45MM POLY AESCULAP FDA Start: 07-24-2019 CAGE [id number] 6DE G [employer] FDA Start: 07-24-2019 SCREW [...] 6X45MM POLY AESCULAP FDA Start: 07-24-2019 CAGE [id number] 6DE G [employer] FDA Start: 07-24-2019 SCREW [...] 6X45MM POLY AESCULAP FDA Start: 07-24-2019 CAGE [id number] 6DE G [employer] FDA Start: 07-24-2019 SCREW [...] 6X45MM POLY AESCULAP FDA Start: 07-24-2019 CAGE [id number] 6DE G [employer] FDA Start: 07-24-2019 SCREW [...] 6X45MM POLY AESCULAP FDA Start: 07-24-2019 CAGE [id number] 6DE G [employer] FDA Start: 07-24-2019 SCREW [...] 6X45MM POLY AESCULAP FDA Start: 07-24-2019 CAGE [id number] 6DE G [employer] FDA Start: 07-24-2019 SCREW [...] 6X45MM POLY AESCULAP FDA Start: 07-24-2019 CAGE [id number] 6DE G [employer] FDA Start: 07-24-2019 SCREW [...] 6X45MM POLY AESCULAP FDA Start: 07-24-2019 CAGE [id number] 6DE G [employer] FDA Start: 07-24-2019 SCREW [...] 6X45MM POLY AESCULAP FDA Start: 07-24-2019 CAGE [id number] 6DE G [employer] FDA Start: 07-24-2019 SCREW [...] 6X45MM POLY AESCULAP FDA Start: 07-24-2019 CAGE [id number] 6DE G [employer] FDA Start: 07-24-2019 SCREW [...] 6X45MM POLY AESCULAP FDA Start: 07-24-2019 CAGE [id number] 6DE G [employer] FDA Start: 07-24-2019 SCREW [...] 6X45MM POLY AESCULAP FDA Start: 07-24-2019 CAGE [id number] 6DE G [employer] FDA Start: 07-24-2019 SCREW [...] 6X45MM POLY AESCULAP FDA Start: 07-24-2019 CAGE [id number] 6DE G [employer] FDA Start: 07-24-2019 SCREW [...] 6X45MM POLY AESCULAP FDA Start: 07-24-2019 CAGE [id number] 6DE G [employer] FDA Start: 07-24-2019 SCREW [...] 6X45MM POLY AESCULAP FDA Start: 07-24-2019 CAGE [id number] 6DE G [employer] FDA Start: 07-24-2019 SCREW [...] 6X45MM POLY AESCULAP FDA Start: 07-24-2019 CAGE [id number] 6DE G [employer] FDA Start: 07-24-2019 SCREW [...] 6X45MM POLY AESCULAP FDA Start: 07-24-2019 CAGE [id number] 6DE G [employer] FDA Start: 07-24-2019 SCREW [...] 6X45MM POLY AESCULAP FDA Start: 07-24-2019 CAGE [id number] 6DE G [employer] FDA Start: 07-24-2019 SCREW [...] 6X45MM POLY AESCULAP FDA Start: 07-24-2019 CAGE [id number] 6DE G [employer] FDA Start: 07-24-2019 SCREW [...] 6X45MM POLY AESCULAP FDA Start: 07-24-2019 CAGE [id number] 6DE G [employer] FDA Start: 07-24-2019 SCREW [...] 6X45MM POLY AESCULAP FDA Start: 07-24-2019 CAGE [id number] 6DE G [employer] FDA Start: 07-24-2019 SCREW [...] S4 6X45MM POLY AESCULAP FDA Start: 07-24-2019 [id number] CAGE [id number] 6DE G [employer] FDA Start: 07-24-2019 SCREW [...] 6X45MM POLY AESCULAP FDA Start: 07-24-2019 CAGE [id number] 6DE G [employer] FDA Start: 07-24-2019 SCREW [...] 6X45MM POLY AESCULAP FDA Start: 07-24-2019 CAGE [id number] 6DE G [employer] FDA Start: 07-24-2019 SCREW [...] 6X45MM POLY AESCULAP FDA Start: 07-24-2019 CAGE [id number] 6DE G [employer] FDA Start: 07-24-2019 SCREW [...] 6X45MM POLY AESCULAP FDA Start: 07-24-2019 CAGE [id number] 6DE G [employer] FDA Start: 07-24-2019 SCREW [...] 6X45MM POLY AESCULAP FDA Start: 07-24-2019 CAGE [id number] 6DE G [employer] FDA Start: 07-24-2019 SCREW [...] 6X45MM POLY AESCULAP FDA Start: 07-24-2019 CAGE [id number] 6DE G [employer] FDA Start: 07-24-2019 SCREW [...] 6X45MM POLY AESCULAP FDA Start: 07-24-2019 CAGE [id number] 6DE G [employer] FDA Start: 07-24-2019 SCREW [...] 6X45MM POLY AESCULAP FDA Start: 07-24-2019 CAGE [id number] 6DE G [employer] FDA Start: 07-24-2019 SCREW [...] 6X45MM POLY AESCULAP FDA Start: 07-24-2019 CAGE [id number] 6DE G [employer] FDA Start: 07-24-2019 SCREW [...] 6X45MM POLY AESCULAP FDA Start: 07-24-2019 CAGE [id number] 6DE G [employer] FDA Start: 07-24-2019 SCREW [...] 6X45MM POLY AESCULAP FDA Start: 07-24-2019 CAGE [id number] 6DE G [employer] FDA Start: 07-24-2019 SCREW SET S4 AESCULAP FDA Start: 07-24-2019 SCREW SET S4 AESCULAP FDA Start: 07-24-2019 SCREW SET S4 AESCULAP FDA Start: 07-24-2019 SCREW SET S4 AESCULAP FDA Start: 07-24-2019 CANCELLOUS COARS E 7.5CC FDA Start: 07-24-2019 INFUSE XX SMALL 0.7CC FDA Start: 07-24-2019 ARASH S4 CVD 5.5X4 5MM AESCULAP FDA Start: 07-24-2019 RAASH S4 CVD 5.5X5 0MM AESCULAP FDA Start: 07-24-2019 SCREW S4 6X40MM MONO AESCULAP FDA Start: 07-24-2019 SCREW S4 6X40MM MONO AESCULAP FDA Start: 07-24-2019 SCREW S4 6X45MM POLY AESCULAP FDA Start: 07-24-2019 SCREW S4 6X45MM POLY AESCULAP FDA Start: 07-24-2019 CAGE [id number] 6DE G [employer] FDA Start: 07-24-2019 SCREW [...] 6X45MM POLY AESCULAP FDA Start: 07-24-2019 CAGE [id number] 6DE G [employer] FDA Start: 07-24-2019 SCREW [...] 6X45MM POLY AESCULAP FDA Start: 07-24-2019 CAGE [id number] 6DE G [employer] FDA Start: 07-24-2019 SCREW [...] 6X45MM POLY AESCULAP FDA Start: 07-24-2019 CAGE [id number] 6DE G [employer] FDA Start: 07-24-2019 SCREW [...] 6X45MM POLY AESCULAP FDA Start: 07-24-2019 CAGE [id number] 6DE G [employer] FDA Start: 07-24-2019 SCREW [...] 6X45MM POLY AESCULAP FDA Start: 07-24-2019 CAGE [id number] 6DE G [employer] FDA Start: 07-24-2019 SCREW [...] 6X45MM POLY AESCULAP FDA Start: 07-24-2019 CAGE [id number] 6DE G [employer] FDA Start: 07-24-2019 SCREW [...] 6X45MM POLY AESCULAP FDA Start: 07-24-2019 CAGE [id number] 6DE G [employer] FDA Start: 07-24-2019 SCREW [...] 6X45MM POLY AESCULAP FDA Start: 07-24-2019 CAGE [id number] 6DE G [employer] FDA Start: 07-24-2019 SCREW [...] Facility 02-16-2025 Functional status Patient at [facility] Work Phone: 02-15-2025 Functional status Patient at [facility] Work Phone: 09-03-2024 Functional Status N/A [facility] 05-15-2024 Functional Status N/A [facility] 03-20-2024 Functional Status N/A [facility] 01-18-2024 Functional Status N/A [facility] 09-19-2023 Functional Status N/A [facility] Mental Status Date Assessment Result Facility 02-16-2025 Cognitive function Cognitive Sta tus Patient at [facility] Work Phone: 02-15-2025 Cognitive function Cognitive Sta tus Patient at [facility] Work Phone: Clinical Notes 04-09-2022 to 08-13-2025 Shabnam Connell, FILI - 07/17/2025 2:00 PM Mc Conklin DPM - 06/27/2025 11:50 AM Deninse Trujillo, DO - 06/20/2025 9:20 AM EDTPatient InstructionsAttachments Note Date & Type Note Facility 08-13-2025 Hospital Discharge instructions Patient Education 08/13/2025 08:45:30 Benign Prostatic Hyperplasia Benign Prostatic Hyperplasia Benign [...] urethra. Follow these instructions at home: Take dutn-yqo-ailevqb and prescription medicines only as told by [...] provider. Document Revised: 05/26/2022 Document Reviewed: 05/26/2022 [employer] Patient Education 2023 Robert Applebaum MD. 08/13/2025 08:45:29 Acute Urinary Retention, Male Acute Urinary Retention, Male Acute urinary retention is a condition in which a person is unable to pass urine or can only pass a little urine. This condition can happen suddenly and last for a short time. If left untreated, it can become long-term (chronic) and result in kidney damage or other serious complications. What are the causes? This condition may be caused by: Obstruction or narrowing of the tube that drains the bladder (urethra). This may be caused by surgery, problems with nearby organs, or injury to the bladder or urethra. Problems with the nerves in the bladder. Tumors in the area of the pelvis, bladder, or urethra. Certain medicines. Bladder or urinary tract infection. Constipation. What increases the risk? This condition is more likely to develop in older men. As men age, their prostate may become larger and may start to press or squeeze on the bladder or the urethra. Other chronic health conditions can increase the risk of acute urinary retention. These include: Diseases such as multiple sclerosis. Spinal cord injuries. Diabetes. Degenerative cognitive conditions, such as delirium or dementia. Psychological conditions. A man may hold his urine due to trauma or because he does not want to use the bathroom. What are the signs or symptoms? Symptoms of this condition include: Trouble urinating. Pain in the lower abdomen. How is this diagnosed? This condition is diagnosed based on a physical exam and your medical history. You may also have other tests, including: An ultrasound of the bladder or kidneys or both. Blood tests. A urine analysis. Additional tests may be needed, such as a CT scan, MRI, and kidney or bladder function tests. How is this treated? Treatment for this condition may include: Medicines. Placing a thin, sterile tube (catheter) into the bladder to drain urine out of the body. This is called an indwelling urinary catheter. After it is inserted, the catheter is held in place with a small balloon that is filled with sterile water. Urine drains from the catheter into a collection bag outside of the body. Behavioral therapy. Treatment for other conditions. If needed, you may be treated in the hospital for kidney function problems or to manage other complications. Follow these instructions at home: Medicines Take icoh-ftl-mcnpfqe and prescription medicines only as told by your health care provider. Avoid certain medicines, such as decongestants, antihistamines, and some prescription medicines. Do not take any medicine unless your health care provider approves. If you were prescribed an antibiotic medicine, take it as told by your health care provider. Do not stop using the antibiotic even if you start to feel better. General instructions Do not use any products that contain nicotine or tobacco. These products include cigarettes, chewing tobacco, and vaping devices, such as e-cigarettes. If you need help quitting, ask your health care provider. Drink enough fluid to keep your urine pale yellow. If you have an indwelling urinary catheter, follow the instructions from your health care provider. Monitor any changes in your symptoms. Tell your health care provider about any changes. If instructed, monitor your blood pressure at home. Report changes as told by your health care provider. Keep all follow-up visits. This is important. Contact a health care provider if: You have uncomfortable bladder contractions that you cannot control (spasms). You leak urine with the spasms. Get help right away if: You have chills or a fever. You have blood in your urine. You have a catheter and the following happens: ?Your catheter stops draining urine. ?Your catheter falls out. Summary Acute urinary retention is a condition in which a person is unable to pass urine or can only pass a little urine. If left untreated, this condition can result in kidney damage or other serious complications. An enlarged prostate may cause this condition. As men age, their prostate gland may become larger and may press or squeeze on the bladder or the urethra. Treatment for this condition may include medicines and placement of an indwelling urinary catheter. Monitor any changes in your symptoms. Tell your health care provider about any changes. This information is not intended to replace advice given to you by your health care provider. Make sure you discuss any questions you have with your health care provider. Document Revised: 07/29/2021 Document Reviewed: 07/29/2021 [employer] Patient Education 2023 Robert Applebaum MD. Follow Up Care 08/12/2025 13:43:56 With:FLAVIO ONEAL, Zac De Oliveira, URL Address: [address] [place] [address]- When: Unknown Comments:TURP [facility] 08-13-2025 Note Patient Education Urology Benign Prostatic Hyperplasia Benign [...] or symptoms? Symptoms of this condition include: ??? Getting up often during the night to urinate. ??? Needing to urinate frequently during the day. ??? Difficulty starting urine flow. ??? Decrease in size and strength of your urine stream. ??? Leaking (dribbling) after urinating. ??? Inability to pass urine. This needs immediate treatment. ??? Inability to completely empty your bladder. ??? Pain when you pass urine. This is more common if there is also an infection. ??? Urinary tract infection (UTI). How is this diagnosed? This condition is diagnosed based on your medical history, a physical exam, and your symptoms. Tests will also be done, such as: ??? A post-void bladder scan. This measures any amount of urine that may remain in your bladder after you finish urinating. ??? A digital rectal exam. In a rectal exam, your health care provider checks your prostate by putting a lubricated, gloved finger into your rectum to feel the back of your prostate gland. This exam detects the size of your gland and any abnormal lumps or growths. ??? An exam of your urine (urinalysis). ??? A prostate specific antigen (PSA) screening. This is a blood test used to screen for prostate cancer. ??? An ultrasound. This test uses sound waves [...] severity of your condition. Treatment may include: ??? Observation and yearly exams. This may be the only treatment needed if your condition and symptoms are mild. ??? Medicines to relieve your symptoms, including: ? Medicines to shrink the prostate. ? Medicines to relax the muscle of the prostate. ??? Surgery in severe cases. Surgery may include: [...] the urethra. Follow these instructions at home: ??? Take eslr-dsc-zjmoosf and prescription medicines only as told by your health care provider. ??? Monitor your symptoms for any changes. Contact your health care provider with any changes. ??? Avoid drinking large amounts of liquid before going to bed or out in public. ??? Avoid or reduce how much caffeine or alcohol you drink. ??? Give yourself time when you urinate. ??? Keep all follow-up visits. This is important. Contact a health care provider if: ??? You have unexplained back pain. ??? Your symptoms do not get (more content not included)... [facility] 07-17-2025 History of Present illness Narrative Images from [...] sure he picks up his feet -He has N/T in his feet but feels some tingling at his ankle and us at times, R > L. Comes up to his knee sometimes on the right -He has rare postural lightheadedness, more so with fast changes -He uses a cane as needed HEADACHES -States he has had more headaches lately. -He states that he has pain right in the front of his head. -occurring at least 3-4 times a week -varies in intensity-sharp in character -to get rid of them he goes to sleep for an hour or so -he is up and down frequently to bathroom -he does snore, he breathes shallow and his reports apneic episodes -he does fall asleep sitting o the edge of the bed -he falls asleep as passenger in a car SYNCOPE He fell in November, dec and January. He did not lose consciousness with these. -Now has had 3 episodes of syncope in April, May and last episode was . He went to ER and no definite diagnosis was found. -was seen in [facility] after second episode -1st occurred while sitting, second one he was walking in the house -he tilts forward and loses consciousness, difficult to arouse, confused afterwards. Takes about an hour to return to baseline -He starts to feel like he has a foggy head and passes out after just a few minutes -no tonic clonic activity reported -He is unresponsive and comes back but can go in and out -he gets tearful after the episodes -He denies SEXTON, vision changes -he has never bitten his tongue or had incontinence -he is not struggling to breathe -Had a similar episode in 2022 and cardiac eval was normal, per cardiology notes -cardiology has him on Holter monitor and he has a tilt table pending on 07/24/35. -he does not recall them CURRENT MEDICATIONS: ALLERGIES/DISCONTINUE MEDICATIONS Current Outpatient Medications Medication Instructions acetaminophen (Tylenol) 500 MG tablet Take by mouth aspirin 81 mg, Daily budesonide (Rhinocort AQ) 32 MCG/ACT nasal spray 62,500 sprays colchicine 0.6 MG tablet dexAMETHasone (Decadron) 2 MG tablet Take 1 tablet by mouth once daily for 7 days. dutasteride (AVODART) 0.5 mg, Daily Fexofenadine-Pseudoephedrine (SEEMA-D 24 HOUR PO) 1 tablet, Daily PRN fluticasone (Flonase) 50 MCG/ACT nasal spray 1 spray, Daily folic acid (Folvite) 1 MG tablet folic acid 1 mg tablet gabapentin (NEURONTIN) 100 mg, Oral, 3 times daily hydroxychloroquine (Plaquenil) 200 MG tablet hydroxychloroquine [...] syringe methylPREDNISolone (Medrol Dospak) 4 MG tablets TAKE BY MOUTH INSTRUCTED - PER PACKAGE INSTRUCTIONS montelukast (Singulair) 10 MG tablet Take by [...] Take by mouth Allergies Allergen Reactions Aspirin Buf(Hwfkgr-Rheeyg-Erk) Other Reaction(s): Other (See Comments), Unknown Abdominal [...] Father Hypertension Father Depression: Not at risk (06/11/2025) Received from [facility] [employer] PHQ-2 Total Score: 0 REVIEW OF SYMPTOMS: Review of Systems Constitutional: Negative for chills and fatigue. HENT: Positive for drooling. Negative for congestion, tinnitus, trouble swallowing and voice change. Eyes: Negative for visual disturbance. Respiratory: Positive for shortness of breath. Negative for cough. Cardiovascular: Negative for chest pain, palpitations and leg swelling. Gastrointestinal: Negative for abdominal pain, nausea and vomiting. Genitourinary: Positive for frequency and urgency. Negative for difficulty urinating. Musculoskeletal: Positive for back pain and gait problem. Negative for arthralgias, myalgias, neck pain and neck stiffness. Neurological: Positive for tremors, syncope, light-headedness and headaches. Negative for dizziness, weakness and numbness. Psychiatric/Behavioral: Positive for confusion and sleep disturbance. Negative for agitation. OBJECTIVE: 07/17/2025 1:46 PM 06/27/2025 11:45 AM 05/15/2025 10:25 AM Vitals BMI 33.75 kg/m2 34.14 kg/m2 34.24 kg/m2 BSA (m2) 2.2 m2 2.16 m2 2.17 m2 Systolic 160 128 Diastolic 80 82 Resp 18 Height (in) 5' 8 5' 7 5' 7 Weight (lb) 222 218 218.6 Visit Report Report Report EXAM: Neurological Exam [...] in upper and lower extremities. Vibration abnormality: Absent vibration at the great toes and ankles bilaterally. Reflexes Right Left Brachioradialis 2+ 2+ Biceps 2+ 2+ Patellar Tr Tr Achilles Tr Tr Right Plantar: downgoing Left Plantar: downgoing Right pathological reflexes: Teja's absent. Ankle clonus absent. Left pathological reflexes: Teja's absent. Ankle clonus absent. Coordination Right: Qddliu-pv-zjqc normal. Rapid alternating movement normal.Left: Tgvtam-sw-mqpi normal. Rapid alternating movement normal. Slight intention tremor, no bradykinesias or cogwheel rigidity. Gait Casual gait: Romberg is absent. Unsteady, ambulating with a cane, broad based, uses arms to get up. PROCEDURE: NONE ASSESSMENT AND PLAN: EVALUATION: 06/2025 Carotid US - no occlusive stenosis 12/2024 CT Head - non acute, chronic small vessel changes Intention tremor Valentin Torre is a 70 [...] He has evidence of neuropathy on exam with changes in vibratory sense in the distal LE bilaterally. He gets an occasional tingling sensation but not bothersome. He is on gabapentin for tremor which can help with neuropathic symptoms as well. I counseled the patient on fall precautions. I discussed the high risk of trauma and debility associated with falls. Patient verbalized understanding. Chronic Headache He has frequent headaches that is possibly due to muscle tension type headaches. He does not really complain of migrainous type symptoms. He does have multiple signs of untreated sleep apnea which can contribute to chronic headaches as well. Headaches have become more frequent. I will order home sleep study Syncope He has had 3 episodes of syncope in the last 3 months. His last episode was on 07/14/2025. He is currently undergoing cardiac event monitor and has tilt-table testing next week. There is no reported obvious seizure-like activity however this is still a consideration. I will order a 2 hour EEG. Another consideration would be Sjogren's syndrome as he has a history of autoimmune disorder. I will order SSA, SSB, sed rate, CRP, and rheumatoid factor. I will also order EMG of lower extremities to assess for evidence of polyneuropathy. He does have vibratory sense loss on exam as documented above. Diagnoses and all orders for this visit: Syncope, unspecified syncope type - SSA ANTIBODY ([facility]); Future - SSB ANTIBODY ([facility]); Future - EEG 2-12HRS,CONT; Future Neuropathy - SSA ANTIBODY ([facility]); Future - SSB ANTIBODY ([facility]); Future - EMG 2 Extremities; Future - C-reactive protein; Future Hypersomnia with sleep apnea - Home sleep test; Future Rheumatoid arthritis, involving unspecified site, unspecified whether rheumatoid factor present ([facility]) - Sedimentation rate, automated; Future - C-reactive protein; Future - Rheumatoid factor; Future Intention tremor Cervicogenic headache PLAN: Continue primidone 50 mg-Take 1 tablet (50 mg) by mouth Daily AND 3 tablets (150 mg) at bedtime Continue Gabapentin 100mg TID Continue thiamine 100 mg by mouth once daily I counseled the patient on the possible side effects and interactions of medications. Lab work as above I will obtain an EEG to assess for seizure or epileptiform activity which may explain the patient episodes and symptoms. I will obtain an EMG with nerve conduction studies and needle electrode exam to assess for a peripheral nerve process and help to differentiate between the above mentioned possible etiologies for the patient's symptoms and explain the findings on neurological exam. This EMG/NCS study will help determine the severity of this process, determine if the process is axon loss or demyelinating in type, determine the presence of active axon loss, and help with proper localization of this process. Recommend he not drive for now HST ordered through [employer] I counseled the patient on fall precautions. I discussed the high risk of trauma and debility associated with falls. Patient verbalized understanding. I will see the patient back after testing, or sooner if needed, to make further recommendations Greater that 50 minutes spent in chart review and counseling as well as development of plan of care with the patient and his documented in this encounter [facility] 06-27-2025 History of Present illness Narrative Patient: [...] rheumatoid arthritis. Allergies: Allergies Allergen Reactions Aspirin Buf(Rdcatb-Wwbdhn-Zpt) Other Reaction(s): Other (See Comments), Unknown Abdominal [...] Resource Strain: Low Risk (04/14/2023) Received from [facility] Overall Financial Resource Strain (CARDIA) Difficulty of Paying Living Expenses: Not hard at all Food Insecurity: No Food Insecurity (06/11/2025) [facility] Hunger Screening Within the past 12 months we worried whether our food would run out before we got money to buy more.: Never True Within the past 12 months the food we bought just didn't last and we didn't have money to get more.: Never True Transportation Needs: No Transportation Needs (04/14/2023) Received from [employer] PRAPARE - Transportation Lack of Transportation (Medical): No Lack of Transportation (Non-Medical): No Physical Activity: Inactive (05/07/2025) Received from [employer] Exercise Vital Sign Days of Exercise per Week: 0 days Minutes of Exercise per Session: 0 min Stress: No Stress Concern Present (04/14/2023) Received from [facility] - Occupational Stress Questionnaire Feeling of Stress : Not at all Social Connections: Moderately Integrated (04/14/2023) Received from [facility] Social Connection and Isolation Panel [NHANES] Frequency of Communication with Friends and Family: Once a week Frequency of Social Gatherings with Friends and Family: Once a week Attends Mandaen Services: More than 4 times per year Active Member of Clubs or Organizations: Yes Attends Club or Organization Meetings: Never Marital Status: Intimate Partner Violence: Not on file Housing Stability: Low Risk (04/14/2023) Received from [employer] Housing Instability Are you worried or concerned [...] longer than right leg of a proximally vnh-afcfdtm-kism diminished pain on palpation of right lateral [...] Kali Conklin DPM documented in this encounter [facility] 06-20-2025 History of Present illness Narrative Chief Complaint Patient presents with New Patient Visit Patient here to establish care, recently in [facility] ER 06.07.25 for syncope. Subjective Valentin Torre is a 70 y.o. male 70-year-old gentleman seen in cardiology consultation at request of family practitioner for 2 episodes of syncope this past May. First episode he did not seek out medical advice, second episode he went to a [place] emergency room, details of which are unavailable [...] discussion and plan. documented in this encounter [facility] Work Phone: 06-20-2025 Instructions Bonnie Schneider [...] be sent through Care Everywhere.Heart Healthy Diet ([place]i)documented in this encounter [facility] Work Phone: 06-12-2025 Hospital Discharge instructions [...] Follow these instructions at home: Medicines Take lsfq-viv-ruibkdq and prescription medicines only as told by [...] to keep your urine pale yellow. Take wrwf-dum-ejfvmka or prescription medicines. Eat foods that are [...] provider. Document Revised: 08/03/2022 Document Reviewed: 08/03/2022 Overblog Patient Education 2023 Robert Applebaum MD. 06/12/2025 07:51:45 Transurethral Resection of the Prostate [...] including vitamins, herbs, eye drops, creams, and jhro-dqs-wbchszb medicines. Any problems you or family members [...] provider tells you to take them. Taking ozot-cnh-pdkvcfg medicines, vitamins, herbs, and supplements. Surgery safety [...] provider. Document Revised: 08/03/2022 Document Reviewed: 08/03/2022 Overblog Patient Education 2023 Robert Applebaum MD. Follow Up Care 05/14/2025 13:50:07 With:FLAVIO ONEAL, Zac De Oliveira, URL Address: [facility] [address], [place] [id number]- [id number] When: Unknown [facility] 06-12-2025 Note Patient Education Urology Transurethral [...] these instructions at home: Medicines ??? Take etbj-ctb-pcebguf and prescription medicines only as told by [...] keep your urine pale yellow. ??? Take yqvw-dnh-rjtijmu or prescription medicines. ??? Eat foods that [...] Revised: 08/03/2022 D (more content not included)... [facility] 06-11-2025 History of Present illness Narrative IM PROGRESS NOTE Patient - Valentin Torre Age - 70 [facility] 1955 [id number] ASSESSMENT & PLAN 1. Hospital discharge follow-up (Primary) ER -advised patient to follow up with Cardiology -advised patient to follow up with Neurology 2. Syncope, unspecified syncope type -recommended 30 day event monitor -patient to call [facility] to get that ordered since the cardiologists are not in the [employer] system who they see -orthostatic blood pressure [...] for Next scheduled follow up. [facility] Physicians Office: [phone] This note is dictated with the use of M*Modal. Please note that this dictation was completed with computer voice recognition software. Quite often unanticipated grammatical, syntax, homophones, and other interpretive errors are inadvertently transcribed by the computer software. Please disregard these errors. Please excuse any errors that have escaped final proofreading. DOMINGO Hyatt 06/11/25 1451 documented in this encounter [facility] 06-03-2025 Telephone encounter Note Patient to call back if no improvement with steroid pack for appt. [facility] 06-03-2025 Miscellaneous Notes Patient to call back if no improvement with steroid pack for appt. documented in this encounter [facility] 05-28-2025 History of Present illness Narrative Subjective Patient ID: Valentin Torre is a 70 y.o. male. Valentin presents to discuss his PFT's. They were ordered by his receptionist doctor's office and were abnormal. He gets short of [...] prescribed diet education. [facility] History of Present illness Narrative Images [...] Take by mouth Allergies Allergen Reactions Aspirin Buf(Gwhiop-Aicvjo-Bqu) Other Reaction(s): Other (See Comments), Unknown Abdominal [...] Depression: Not at risk (05/07/2025) [facility] PH[facility]-2 Total Score: 0 REVIEW OF SYMPTOMS: [...] Teja's absent. Ankle clonus absent. Coordination Right: Qnjbas-xd-jvho normal. Rapid alternating movement normal.Left: Whefgj-rm-fcwo normal. Rapid alternating movement normal. Slight intention [...] before bedtime. Polyneuropathy documented in this encounter [facility] 05-07-2025 History of Present illness Narrative Subjective [...] Do you have a durable power of analyst?: Yes Cognitive Screening Do you have trouble [...] year (around 05/07/2026). documented in this encounter [facility] [employer] 05-01-2025 Procedure note [facility] enter 04-29-2025 Hospital Discharge instructions Patient Education [...] including vitamins, herbs, eye drops, creams, and iwiz-zit-wvtkhlp medicines. Any problems you or family members [...] provider tells you to take them. Taking gnmy-vgq-cnchwjv medicines, vitamins, herbs, and supplements. Tests You [...] Follow these instructions at home: Medicines Take mvdi-arr-lzygkaq and prescription medicines only as told by [...] provider. Document Revised: 07/21/2022 Document Reviewed: 06/19/2021 Overblog Patient Education 2023 Robert Applebaum MD. Follow Up Care 10/30/2024 09:42:08 With:FLAVIO ONEAL, Zac De Oliveira, URL Address: [facility] [address] [place] [address]- When: Unknown [facility] [place] 04-29-2025 Note Patient Education Urology Cystoscopy Cystoscopy [...] including vitamins, herbs, eye drops, creams, and rhym-kvi-mwrjewt medicines. ??? Any problems you or family [...] tells you to take them. ??? Taking zzcu-pxo-bwjijej medicines, vitamins, herbs, and supplements. Tests You [...] these instructions at home: Medicines ??? Take crhn-wtr-almwwzd and prescription medicines only as told by [...] (biopsy) during your (more content not included)... [facility] 04-16-2025 History of Present illness [...] Exam Vitals reviewed. Exam conducted with a toaster element repairer present (Peter Adelfo MS 3). Constitutional: General: He is not [...] if no better documented in this encounter [facility] 04-10-2025 Miscellaneous Notes I spoke with pt and tried scheduling him but you are booked out until the 06 of May. Is there somewhere where you'd like him to be put? Pt has been icing and elevating leg. I advised him to wrap it as well. Thank you. Put in at 4:45 p.m. on Tuesday Pt is scheduled. documented in this encounter [facility] 04-10-2025 Telephone encounter Note I spoke with pt and tried scheduling him but you are booked out until the 06 of May. Is there somewhere where you'd like him to be put? Pt has been icing and elevating leg. I advised him to wrap it as well. Thank you. [facility] 04-10-2025 Telephone encounter Note Put in at 4:45 p.m. on Tuesday [facility] 04-10-2025 Telephone encounter Note Pt is scheduled. [facility] 04-10-2025 Evaluation note Diagnosis Onset Date Resolution Greater trochanteric bursitis of right hip acute April 10, 2025 9:30am Iliotibial band syndrome, right leg acute April 10 9:30am Lymphedema of both lower extremities acute April 10, 2025 9:30am Primary osteoarthritis of right hip acute April 10, 2025 9:30am Primary osteoarthritis of right knee acute April 10, 2025 9:30am [facility] Work Phone: 1(485) 922-893005-20-2025 History of Present illness Narrative* Kali Conklin [...] and has been using prescribed or recommended okue-mfd-ovoucft cream with positive improvement. Patient has history of SLE and rheumatoid arthritis. Allergies: Allergies Allergen Reactions Aspirin Buf(Marfct-Apgtiu-Awg) Other Reaction(s): Other (See Comments), Unknown Abdominal [...] Resource Strain: Low Risk (04/14/2023) Received from [employer] [facility] Overall Financial Resource Strain (CARDIA) Difficulty of Paying Living Expenses: Not hard at all Food Insecurity: No Food Insecurity (02/25/2025) [facility] Hunger Screening Within the past 12 months we worried whether our food would run out before we got money to buy more.: Never True Within the past 12 months the food we bought just didn't last and we didn't have money to get more.: Never True Transportation Needs: No Transportation Needs (04/14/2023) [facility] PRAPARE - Transportation Lack of Transportation (Medical): No Lack of Transportation (Non-Medical): No Physical Activity: Inactive (05/01/2024) Received from [employer] Exercise Vital Sign Days of Exercise per Week: 0 days Minutes of Exercise per Session: 0 min Stress: No Stress Concern Present (04/14/2023) Received from [employer] [facility] [employer] - Occupational Stress Questionnaire Feeling of Stress : Not at all Social Connections: Moderately Integrated (04/14/2023) [facility] Social Connection and Isolation Panel [NHANES] Frequency of Communication with Friends and Family: Once a week Frequency of Social Gatherings with Friends and Family: Once a week Attends Mandaen Services: More than 4 times per year Active Member of Clubs or Organizations: Yes Attends Club or Organization Meetings: Never Marital Status: Intimate Partner Violence: Not on file Housing Stability: Low Risk (04/14/2023) [facility] Housing Instability Are you worried or [...] longer than right leg of a proximally xtt-ycxjcga-drrn Greatly diminished pain on palpation right heel [...] 10 Kali Conklin DPM [id number] History of Present illness Narrative* Whit Taylor [...] Take by mouth Allergies Allergen Reactions Aspirin Buf(Bnsvhn-Cyuuvz-Pso) Other Reaction(s): Other (See Comments), Unknown Abdominal [...] Depression: Not at risk (02/25/2025) Received from [employer] PHQ-2 Total Score: 0 REVIEW OF SYMPTOMS: [...] reflexes: Teja's absent. Ankle clonus absent. Coordination Uipflj-wq-eafe, rapid alternating movements and ffla-px-amdi normal bilaterally without dysmetria. Gait Normal casual, [...] by Whit Taylor MD documented in this encounterK[facility] [id number] Telephone encounter Note* Telephone Encounter - Marian Guajardo NP - 03/04/2025 12:58 PM EDT Patient calls that tremors are worsening. He has scheduled appointment with Claudia on 03/20. I called the patient and left voicemail that he has upcoming appointment but until then increase primidone 50 mg 1/2 tab am and continue the 2 pills at bedtime. [facility] Work Phone: [phone] Miscellaneous Notes* Telephone Encounter - Marian Guajardo NP - 03/04/2025 12:58 PM EDT Patient calls that tremors are worsening. He has scheduled appointment with Claudia on 03/20. I called the patient and left voicemail that he has upcoming appointment but until then increase primidone 50 mg 1/2 tab am and continue the 2 pills at bedtime. documented in this encounterKansas City VA Medical [id number] History of Present illness Narrative* Sascha Sutton, [...] Exam Vitals reviewed. Exam conducted with a toaster element repairer present (Chance Anders MS 3). Constitutional: General: [...] mouth in the morning. documented in this encounterDayton VA Medical Center04-03-2025 History of Present illness Narrative* Kali Conklin, JODI - 02/21/2025 9:30 AM EDT Patient: Valentin [...] and has been using prescribed or recommended gdpe-cfl-jxqxnrb cream with improvement. Patient has history of SLE and rheumatoid arthritis. Allergies: Allergies Allergen Reactions Aspirin Buf(Cnuegc-Aecxmr-Dvq) Other Reaction(s): Other (See Comments), Unknown Abdominal [...] Strain: Low Risk (04/14/2023) [facility] Overall Financial Resource Strain (CARDIA) Difficulty of Paying Living Expenses: Not hard at all Food Insecurity: No Food Insecurity (01/25/2025) [facility] Hunger Screening Within the past 12 months we worried whether our food would run out before we got money to buy more.: Never True Within the past 12 months the food we bought just didn't last and we didn't have money to get more.: Never True Transportation Needs: No Transportation Needs (04/14/2023) Received from [employer], [employer] PRAPARE - Transportation Lack of Transportation (Medical): No Lack of Transportation (Non-Medical): No Physical Activity: Inactive (05/01/2024) Received from [employer] Exercise Vital Sign Days of Exercise per Week: 0 days Minutes of Exercise per Session: 0 min Stress: No Stress Concern Present (04/14/2023) Received from [employer], [employer] - Occupational Stress Questionnaire Feeling of Stress : Not at all Social Connections: Moderately Integrated (04/14/2023) Received from [employer], [employer] Social Connection and Isolation Panel [NHANES] Frequency of Communication with Friends and Family: Once a week Frequency of Social Gatherings with Friends and Family: Once a week Attends Mandaen Services: More than 4 times per year Active Member of Clubs or Organizations: Yes Attends Club or Organization Meetings: Never Marital Status: Intimate Partner Violence: Not on file Housing Stability: Low Risk (04/14/2023) Received from [employer], [employer] Housing Instability Are you worried or concerned [...] longer than right leg of a proximally oog-nhyjpwz-usnj Greatly diminished pain on palpation right heel [...] therapy Kali Conklin DPM documented in this encounterKansas City VA Medical [id number] Consult note Author Rita Matt [facility] Note Date/Time February 16, 2025 1:3 0pm [facility] [address] [place] [address] Cardiology Consult Note Signed Patient: Valentin Torre MR#: [id number] : 1955 Acct:[id number] Age/Sex: 69 / M Adm Date: 5 Loc: Room: [address] [place] [address] Type: ADM INOo Attending Dr: Gabi Almanzar MD Copies to: DO Rita Strong MD, [facility] Gabi Almanzar MD~ Cardiology HPI History of Present Illness Consult Date: 02/16/25 Reason for Consult: Chest pain HPI: Mr. Torre is a 69 year old male who is being seen at request of the hospitalist for evaluation of chest pain. Patient came with his who was present at thetime. His cardiac history is remarkable for cardiac catheterization in May 2023bjohnathon Trujillo for atypical chest pain which revealed [...] 11 point review of system essentially unremarkable [facility] Medical History Intention tremor Greater trochanteric bursitis [...] x10E3/uL Lymph # (Auto) 1.0 (1.00-4.8) x10E3/uL [place] # (Auto) 0.9 H (0.0-0.8) x10E3/uL Eos [...] arthritis, unspecified Documented By: Rita Matt MD, [facility] 5 1323 Signed By: <Electronically signed by MD AMA Matt> 02/16/25 1330 [facility] Work Phone: 1(233) 113-533903-29-2025 [place]charge [place] [id number] Discharge Summary Signed Patient: Valentin Torre MR#: [id number] : 1955 Acct:[id number] Age/Sex: 69 / M Adm Date: 5 Loc: Room: [address] [place] [address]: Gabi Almanzar MD Copies to: [...] Pain) triamcinolone acetonide [Nasal Allergy] 55 mcg Aerosol,[place] 1 spray INTRANASAL DAILY carboxymethylcellulose sodium [Refresh [...] Continuity of Care Document Health Concerns: A [facility] screening has identified you as FRAIL [...] Strong:Four Ways to Beat the Frailty Risk [email or web address] cy-iwpbjy-hdwl- awct-sq-nhxb-xel-caniecl-mzsr Exam Physical Exam Vital Signs: Temp Pulse [...] Neut % (Auto) 78.4, Lymph % (Auto) 11.0,[place] % (Auto) 9.6, Eos % (Auto) 0.7, Baso % (Auto) 0.3, Nucleat RBC Rel Count 0.1, Neut # (Auto) 7.1, Lymph # (Auto) 1.0, [place] # (Auto) 0.9 H, Eos # (Auto) [...] MD 02/16/25 1453 Signed By: 02/16/[address] [facility]03-29-[address] [address] Cardiology Consult Note Signed Patient: Valentin Torre MR#: [id number] : 1955 Acct:[id number] Age/Sex: 69 / M Adm Date: 5 Loc: 3T Room: [address] [place] [address] Type: ADM INOo Attending Dr: Gabi Almanzar MD Copies to: Sascha Sutton,DO Rita Matt MD, [facility] Gabi Almanzar MD~ Cardiology HPI History of [...] 11 point review of system essentially unremarkable [facility] Medical History Intention tremor Greater trochanteric bursitis [...] x10E3/uL Lymph # (Auto) 1.0 (1.00-4.8) x10E3/uL [place] # (Auto) 0.9 H (0.0-0.8) x10E3/uL Eos [...] arthritis, unspecified Documented By: Rita Matt MD, [facility] 1323 Signed By: 02/16/[address] [place], [place] 2784903-28-2025 History and physical note Author Marley Dumont [facility] Note Date/Time February 15, 2025 3:4 9pm [facility] [address] [place] [address] Hospitalist H&P Signed Patient: Valentin Torre MR#: [id number] : 1955 Acct:[id number] Age/Sex: 69 / M Adm Date: 5 Loc: 3T Room: [address] [place] [address] Type: ADM INOo Attending Dr: Marley Dumont [...] negative unless noted below or in HPI [facility] Medical History Intention tremor Greater trochanteric bursitis [...] % (Auto) 10.3 % (.) 02/15/25 10:00 [place] % (Auto) 14.0 % (.) 02/15/25 10:00 Eos % (Auto) 0.5 % (.) 02/15/25 10:00 Baso % (Auto) 0.3 % (.) 02/15/25 10:00 Nucleat RBC Rel Count 0.1 /100 WBC (0-0.5) 02/15/25 10:00 Neut # (Auto) 7.1 x10E3/uL (1.8-7.7) 02/15/25 10:00 Lymph # (Auto) 1.0 x10E3/uL (1.00-4.8) 02/15/25 10:00 [place] # (Auto) 1.3 x10E3/uL (0.0-0.8) H 02/15/25 [...] <Electronically signed by Marley Dumont MD> 02/15/25 1546 [facility] Work Phone: 1([phone]) 592-161603-28-2025 [place] [address] Hospitalist H&P Signed Patient: Valentin Torre MR#: [id number] : 1955 Acct:[id number] Age/Sex: 69 / M Adm Date: 5 Loc: 3T Room: [address] [place] [address] Type: ADM INOo Attending Dr: Marley Dumont [...] negative unless noted below or in HPI [facility] Medical History Intention tremor Greater trochanteric bursitis [...] 68 18 145/88 H 96 Room Air 03/28/25 15:01 02/15/25 15:01 02/15/25 15:01 02/15/25 15:01 [...] % (Auto) 10.3 % (.) 02/15/25 10:00 [place] % (Auto) 14.0 % (.) 02/15/25 10:00 Eos % (Auto) 0.5 % (.) 02/15/25 10:00 Baso % (Auto) 0.3 % (.) 02/15/25 10:00 Nucleat RBC Rel Count 0.1 /100 WBC (0-0.5) 02/15/25 10:00 Neut # (Auto) 7.1 x10E3/uL (1.8-7.7) 02/15/25 10:00 Lymph # (Auto) 1.0 x10E3/uL (1.00-4.8) 02/15/25 10:00 [place] # (Auto) 1.3 x10E3/uL (0.0-0.8) H 02/15/25 [...] 02/15/25 15 32 Signed By: 02/15/[address] [facility]03-21-2025 Evaluation note* Diagnosis Onset Date Resolution Status Admit Date Greater trochanteric bursiti s of right hip acute February 08, 2025 9:00am Iliotibial band syndrome, ri ght leg acute February 08, 2025 9:00am Primary osteoarthritis of ri ght hip acute February 08, 2025 9:00am Dyslipidemia acute February 15, 2025 11:58am Essential hypertension acute [facility] 2024 11:58am Frequent PVCs acute February 15, 2025 11:58am Rheumatoid arthritis acute Sourav 2024 11:58am Atypical chest pain resolved February 15, 2025 11:58am Arthritis of facet joint of cervical spine acute February 21, 2025 7:52am Arthritis of lumbosacral spine acute February 21, 2025 7:52am Chronic pain acute Ekaterina 3rd, 2 025 7:52am Osteoarthritis of right hip [...] knee acute April 10, 2025 9 :30am [facility] Work Phone: [phone]) 946-799503-20-2025 History of Present illness Narrative* Kali Conklin, DPM - 02/07/2025 10:00 AM EDT Patient: [...] and has been using prescribed or recommended snvx-pit-spucddn cream with improvement. Patient has history of SLE and rheumatoid arthritis. Allergies: Allergies Allergen Reactions Aspirin Buf(Eskjrq-Mjvgnj-Hcd) Other Reaction(s): Other (See Comments), Unknown Abdominal [...] Resource Strain: Low Risk (04/14/2023) Received from [employer], [facility] Overall Financial Resource Strain (CARDIA) Difficulty of Paying Living Expenses: Not hard at all Food Insecurity: No Food Insecurity (01/25/2025) Received from [employer] [facility] Hunger Screening Within the past 12 months we worried whether our food would run out before we got money to buy more.: Never True Within the past 12 months the food we bought just didn't last and we didn't have money to get more.: Never True Transportation Needs: No Transportation Needs (04/14/2023) [facility] PRAPARE - Transportation Lack of Transportation (Medical): No Lack of Transportation (Non-Medical): No Physical Activity: Inactive (05/01/2024) Received from [employer] Exercise Vital Sign Days of Exercise per Week: 0 days Minutes of Exercise per Session: 0 min Stress: No Stress Concern Present (04/14/2023) Received from [employer], [employer] - Occupational Stress Questionnaire Feeling of Stress : Not at all Social Connections: Moderately Integrated (04/14/2023) Received from [employer], [employer] Social Connection and Isolation Panel [NHANES] Frequency of Communication with Friends and Family: Once a week Frequency of Social Gatherings with Friends and Family: Once a week Attends Mandaen Services: More than 4 times per year Active Member of Clubs or Organizations: Yes Attends Club or Organization Meetings: Never Marital Status: Intimate Partner Violence: Not on file Housing Stability: Low Risk (04/14/2023) Received from [employer], [employer] Housing Instability Are you worried or concerned [...] longer than right leg of a proximally vow-nkxadgw-dfju Greatly diminished pain on palpation right heel [...] future Kali Conklin DPM documented in this encounterKansas City VA Medical CenterXatwwknnvu05-14-9453 History of Present illness Narrative* Kali Conklin [...] and has been using prescribed or recommended hzsp-vke-qwamjyb cream with improvement. Patient presents today with [...] rheumatoid arthritis. Allergies: Allergies Allergen Reactions Aspirin Buf(Stvdkk-Jztjty-Xaq) Other Reaction(s): Other (See Comments), Unknown Abdominal [...] Resource Strain: Low Risk (04/14/2023) Received from [employer], [employer] Overall Financial Resource Strain (CARDIA) Difficulty of Paying Living Expenses: Not hard at all Food Insecurity: No Food Insecurity (01/25/2025) Received from [employer] Hunger Screening Within the past 12 months we worried whether our food would run out before we got money to buy more.: Never True Within the past 12 months the food we bought just didn't last and we didn't have money to get more.: Never True Transportation Needs: No Transportation Needs (04/14/2023) Received from [employer], [employer] PRAPARE - Transportation Lack of Transportation (Medical): No Lack of Transportation (Non-Medical): No Physical Activity: Inactive (05/01/2024) Received from [employer] Exercise Vital Sign Days of Exercise per Week: 0 days Minutes of Exercise per Session: 0 min Stress: No Stress Concern Present (04/14/2023) Received from [employer], [employer] - Occupational Stress Questionnaire Feeling of Stress : Not at all Social Connections: Moderately Integrated (04/14/2023) Re[facility] from [employer], [facility] Social Connection and Isolation Panel [NHANES] Frequency of Communication with Friends and Family: Once a week Frequency of Social Gatherings with Friends and Family: Once a week Attends Mandaen Services: More than 4 times per year Active Member of Clubs or Organizations: Yes Attends Club or Organization Meetings: Never Marital Status: Intimate Partner Violence: Not on file Housing Stability: Low Risk (04/14/2023) Received from [employer], [facility] Housing Instability Are you worried or [...] longer than right leg of a proximally jol-tqzluwc-umkm Greatly diminished pain on palpation right heel [...] diagnosis. Kali Conklin DPM documented in this encounterKansas City VA Medical CenterJirfujvfob03-89-0025 History of Present illness Narrative* Sascha Sutton, - 01/29/2025 2:00 PM EDT Subjective Patient ID: Valentin Torre is a 69 y.o. male. Jfefry presents today to the office for recheck [...] helps with the pain. He saw the core stripper last week and was told that he [...] Recommend follow-up with ENT. documented in this encounterDayton VA Medical Center03-07-2025 History of Present illness Narrative* Sascha Stuton DO - 01/25/2025 11:30 AM EST Subjective [...] but was sent to the ED at [facility] for further evaluation. Since then he reports [...] MS3 01/25/25 12:00 PM documented in this encounterKettering Health Greene MemorialMedical [employer] [id number] [facility]iology [facility] Main [place] [address] [place], [place] [id number] CT Scan Report Signed Patient: Valentin Torre MR#: [id number] : 1955 Acct:[id number] Age/Sex: 69 / M ADM Date: 5 Loc: ER Room: Type: [facility] ER Attending Dr: Copies to: Matthew [...] MRI 01/10/2024 FINDINGS: L5-S1: Mild disc disease. Pwoj-ji-sgigkruz neural from narrowing. Advanced facet arthropathy. Laminectomy. L4-5 Postsurgical changes L4-5 status post the decompressive laminectomy and posterior fusion and discectomy. Stable 5 mm of anterolisthesis. Ilfx-id-kwwwltpv foraminal narrowing at this level. L3-4 Moderate [...] Alo Mayer M.D.01/12/2025 2:53 PM Dictation Location: RADIO-PC-29 Transcribed By: MARV 01/12/25 1457 Dictated By: Alo Mayer MD 01/12/25 1436 Signed By: 01/12/[address] [facility] Work Phone: 1(638) 789-729302-22-2025 [facility]iology [facility] Main [place] [address] [place] [address] CT Scan Report Signed Patient: Valentin Torre MR#: [id number] : 1955 Acct:[id number] Age/Sex: 69 / M ADM Date: 5 Loc: ER Room: Type: [facility] ER Attending Dr: Copies to: Matthew [...] ACUTE INTRACRANIAL ABNORMALITY. CHRONIC SMALL VESSEL CHANGES GGUU-JI-RNBTIAWE PARANASAL SINUS DISEASE Impression dictated by: Alo Mayer M.D.01/12/2025 2:28 PM Dictation Location: RADIO-PC-29 Transcribed By: MARV 01/12/25 1428 Dictated By: Alo Mayer MD 01/12/251425 Signed By: 01/12/[address] [facility] Work Phone: 1([phone]) 712-447702-22-2025 Evaluation note* Diagnosis Onset Date Resolution Status Admit Date Fall acute January 12, 2025 10:56am Greater trochanteric bursiti s of right hip acute February 08, 2025 9:00am Iliotibial band syndrome, right leg acute February 08, 2025 9:00am Primary osteoarthritis of right hip acute February 08, 2025 9:00am Dyslipidemia acute February 15, 2025 11:58am Essential hypertension acute [facility] 2024 11:58am Frequent PVCs acute February 15, 2025 11:58am Rheumatoid arthritis acute Sou[facility] h 2024 11:58am Atypical chest pain resolved February 15, 2025 11:58am Arthritis of facet joint of cervical spine acute February 21, 2025 7:52am Arthritis of lumbosacral spine acute February 21, 2025 7:52am Chronic pain acute February 21 7:52am Osteoarthritis of right hip acute February 21, 2025 7:52am [facility] Work Phone: [phone]) 943-346602-22-2025 Evaluation note* Diagnosis Onset Date Resolution Status Admit Date Fall acute January 12, 2025 10:56am Greater trochanteric bursiti s of right hip acute February 08, 2025 9:00am Iliotibial band syndrome, right leg acute February 08, 2025 9:00am Primary osteoarthritis of right hip acute February 08, 2025 9:00am Dyslipidemia acute February 15, 2025 11:58am Essential hypertension acute [facility] 2024 11:58am Frequent PVCs acute February [...] right hip acute March 27, 2025 7:47am [facility] Work Phone: 1([phone]) 572-428102-20-2025 History of Present illness Narrative* Kali Conklin, DPM - 01/10/2025 1:10 PM EST Patient: [...] is very painful with ambulation has tried tqqf-bsa-ygfehow creamswith negative improvement Patient presents today with a CC of elongated, thick nails. Pt states nails have been elongated and thick for many years and cause pain with ambulation in shoegear. Pt has tried previous treatment with minimal relief. Pt presents today for nail care and treatment. Allergies: Allergies Allergen Reactions Aspirin Buf(Exdfmz-Uebgld-Jfz) Other Reaction(s): Other (See Comments), Unknown Abdominal [...] Resource Strain: Low Risk (04/14/2023) Re[facility] [employer], [facility] Overall Financial Resource Strain (CARDIA) Difficulty of Paying Living Expenses: Not hard at all Food Insecurity: No Food Insecurity (12/17/2024) Received from [employer] Hunger Screening Within the past 12 months we worried whether our food would run out before we got money to buy more.: Never True Within the past 12 months the food we bought just didn't last and we didn't have money to get more.: Never True Transportation Needs: No Transportation Needs (04/14/2023) Received from [employer], [facility] PR[facility] - Transportation Lack of Transportation (Medical): No Lack of Transportation (Non-Medical): No Physical Activity: Inactive (05/01/2024) Received from [employer] Exercise Vital Sign Days of Exercise per Week: 0 days Minutes of Exercise per Session: 0 min Stress: No Stress Concern Present (04/14/2023) Received from [employer], [employer] - Occupational Stress Questionnaire Feeling of Stress : Not at all Social Connections: Moderately Integrated (04/14/2023) Received from [employer], [employer] Social Connection and Isolation Panel [NHANES] Frequency of Communication with Friends and Family: Once a week Frequency of Social Gatherings with Friends and Family: Once a week Attends Mandaen Services: More than 4 times per year Active Member of Clubs or Organizations: Yes Attends Club or Organization Meetings: Never Marital Status: Intimate Partner Violence: Not on file Housing Stability: Low Risk (04/14/2023) Received from [employer], [employer] Housing Instability Are you worried or concerned [...] longer than right leg of a proximally hop-rvfwugm-kvje Positive palpation right heel fissure ASSESSMENT 1. [...] or drainage to feet. Patient to consider wqof-wrk-mytnxdn treatments for medication or use of urea cream and prescription today was offered for Lac-Hydrin cream. Prescription today for urea 40 Kali Conklin DPM documented in this [facility]02-13-2025 Telephone encounter Note* Telephone Encounter - Farida Garay EEGRigo Graff - 01/03/2025 9:47 AM EST Pt will went up to 1 pill of [address]idone per. Dr. Claudia escobar has helped and he will need a new Rx called to [facility] in [place]. [facility] Work Phone: [phone] Miscellaneous Notes* Telephone Encounter - Farida Garay - 01/03/2025 9:47 AM EST Pt will went up to 1 pill of Primidone per. Dr. Claudia escobar has helped and he will need a new Rx called to [facility] in [place]. documented in this [facility]01-29-2025 History of Present illness Narrative* Whit Taylor [...] Take by mouth Allergies Allergen Reactions Aspirin Buf(Lopqrf-Rzzseu-Qfy) Other Reaction(s): Other (See Comments), Unknown Abdominal [...] Depression: Not at risk (12/17/2024) Received from [employer] PHQ-2 Total Score: 0 REVIEW OF SYMPTOMS: [...] in all four extremities, including at least cleaner, finger abductors, biceps, triceps, deltoid, toe flexors [...] ROM, and improve function. documented in this encounterKansas City VA Medical [id number] History of Present illness Narrative* Carlos Eden, - 12/17/2024 2:30 PM EST Subjective Patient ID: HPI Patient presents today to reinspect a right thyroid nodule, previously 1.2 cm [place] II. He is doing fine Review of [...] ultrasound at that time documented in this encounterKansas City VA Medical CenterWqgiptuqhn20-75-8251 History of Present illness Narrative* Sascha Sutton [...] Objective Physical Exam Exam conducted with a toaster element repairer present (Junior Collins MS III). 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 documented in this encounterDayton VA Medical Center01-06-2025 Evaluation note* Diagnosis Onset Date [...] ght hip acute February 08, 2025 9:00am [facility] Work Phone: [phone]) 774-774501-06-2025 Evaluation note* Diagnosis Onset Date Resolution Status [...] February 15, 2025 11:58am Essential hypertension acute [facility] 2024 11:58am Frequent PVCs acute February 15, 2025 11:58am Rheumatoid arthritis acute [facility] 2024 11:58am [facility] Work Phone: 1([phone]) [phone] Evaluation note* Diagnosis Onset Date Resolution Status [...] February 15, 2025 11:58am Essential hypertension acute [facility] 2024 11:58am Frequent PVCs acute February 15, 2025 11:58am Rheumatoid arthritis acute [facility] 2024 11:58am Arthritis of facet joint of cervical spine acute February 21, 2025 7:52am Arthritis of lumbosacral spine acute February 21, 2025 7:52am Chronic pain acute February 21 7:52am Osteoarthritis of right hip acute February 21, 2025 7:52am [facility] Work Phone: [phone] Evaluation note* Diagnosis Onset Date Resolution Status [...] 9:44am Fall acute January 12, 2025 10:56am [facility] [facility] Work Phone: 1(510) 592-118112-12-2024 History of Present illness Narrative* Kali Conklin, DPM - 11/01/2024 1:00 PM EST Patient: Valentin [...] shoe gear Allergies: Allergies Allergen Reactions Aspirin Buf(Nuztpj-Tkegww-Bhh) Other Reaction(s): Other (See Comments), Unknown Abdominal [...] Resource Strain: Low Risk (04/14/2023) Received from [employer], [facility] [employer] Overall Financial Resource Strain (CARDIA) Difficulty of Paying Living Expenses: Not hard at all Food Insecurity: No Food Insecurity (09/24/2024) Received from [employer] Hunger Screening Within the past 12 months we worried whether our food would run out before we got money to buy more.: Never True Within the past 12 months the food we bought just didn't last and we didn't have money to get more.: Never True Transportation Needs: No Transportation Needs (04/14/2023) Received from [employer], [employer] PRAPARE - Transportation Lack of Transportation (Medical): No Lack of Transportation (Non-Medical): No Physical Activity: Inactive (05/01/2024) Received from [employer] Exercise Vital Sign Days of Exercise per Week: 0 days Minutes of Exercise per Session: 0 min Stress: No Stress Concern Present (04/14/2023) Received from [employer], [employer] [employer] Occupational Health - Occupational Stress Questionnaire Feeling of Stress : Not at all Social Connections: Moderately Integrated (04/14/2023) [facility] [employer], [facility] Social Connection and Isolation Panel [NHANES] Frequency of Communication with Friends and Family: Once a week Frequency of Social Gatherings with Friends and Family: Once a week Attends [facility] Services: More than 4 times per year Active Member of Clubs or Organizations: Yes Attends Club or Organization Meetings: Never Marital Status: Intimate Partner Violence: Not on file Housing Stability: Low Risk (04/14/2023) Received from [employer], [facility] Housing Instability Are you worried [...] . Kali Conklin DPM documented in this encounterKansas City VA Medical [id number] Evaluation note* Diagnosis Onset Date Resolution Status [...] right hip acute November 26, 2024 9:44am [facility] Work Phone: 1(457) 219-552711-27-2024 Evaluation note* Diagnosis Onset Date Resolution Status Admit Date Primary osteoarthritis of ri ght hip acute November 27th, 2 024 8:46am Greater trochanteric bursiti s of right [...] 9:44am Fall acute January 12, 2025 10:56am [facility] Work Phone: 1(765) 400-529111-25-2024 History of Present illness Narrative* Whit Taylor [...] 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 Denies any other concerns. CURRENT [...] MG tablet Oral Allergies Allergen Reactions Aspirin Buf(Glpkph-Wyjeid-Tbv) Other Reaction(s): Other (See Comments), Unknown Abdominal [...] Depression: Not at risk (09/24/2024) Received from [employer] PHQ-2 Total Score: 0 REVIEW OF SYMPTOMS: [...] reflexes: Teja's absent. Ankle clonus absent. Coordination Walsrh-co-lgls, rapid alternating movements and gbrp-mg-alev normal bilaterally without dysmetria. Gait Normal casual, [...] Follow up 8 weeks. documented in this encounterKansas City VA Medical [id number] History of Present illness Narrative* Sascha Sutton, - 10/09/2024 2:00 PM EST Subjective Patient ID: Valnetin Torre is a 69 y.o. male. Jeffry Torre is a 69 y.o. male presenting today with cough and voice loss. He says that his cough started around 09/19. He went to urgent care one week [...] given predniSONE (DELTASONE) 20 mg tablet and xboemccxeem-agnliouwz-xyudfsmo (TRELEGY ELLIPTA) 100-62.5-25 mcg blister with device. [...] Sinus: Frontal sinus tenderness present. Mouth/Throat: Lips: [place]. Mouth: Mucous membranes are moist. Pharynx: Posterior [...] this for 10 days. documented in this encounterDayton [facility] Center11-[facility]24 History of Present illness Narrative* [...] Exam Vitals reviewed. Exam conducted with a toaster element repairer present (Ramiro Jhon MS III). Constitutional: General: He is not [...] Sinus: No maxillary sinus tenderness. Mouth/Throat: Lips: [place]. Mouth: Mucous membranes are moist. Pharynx: Oropharynx [...] times a day for 3 days. - hdlgzcbirbv-yfngibwry-rkaafjme (TRELEGY ELLIPTA) 100-62.5-25 mcg blister with device; Inhale 1 puff once daily for 14 days. documented in this encounterDayton [facility] Medical Center10-30-2024 Evaluation note* Diagnosis Onset Date Resolution Status [...] right hip acute November 26, 2024 9:44am [facility] Work Phone: 1(715) 639-369410-14-2024 Hospital Discharge instructions Patient Education 09/03/2024 10:59:52 [...] Follow these instructions at home: Medicines Take oxpa-wew-cfvctuw and prescription medicines only as told by [...] to keep your pee pale yellow. ?Take hzzd-hwr-btefpvh or prescription medicines. ?Eat foods that are [...] provider. Document Revised: 07/08/2023 Document Reviewed: 07/08/2023 Overblog Patient Education 2023 Robert Applebaum MD. 09/03/2024 10:59:51 Laser Therapy for Kidney Stones [...] including vitamins, herbs, eye drops, creams, and itpe-zxo-uihwlng medicines. Any problems you or family members [...] unless your provider tells you to. ?Taking pvlo-vfm-vjnxwmw medicines, vitamins, herbs, and supplements. Tests You [...] provider. Document Revised: 07/08/2023 Document Reviewed: 07/08/2023 [email or web address] Patient Education 2023 Robert Applebaum MD. Follow Up Care 09/19/2023 10:33:39 With:FLAVIO ONEAL, Zac De Oliveira, URL Address: [facility] [address], [place] [address]- [phone] When: Unknown [facility] NotePatient Education Nephrology Laser Therapy for [...] these instructions at home: Medicines ? Take zsxk-ypv-omgfojo and prescription medicines only as told by [...] keep your pee pale yellow. ? Take urqn-uks-suibpea or prescription medicines. ? Eat foods that [...] provider. Document Revised: 07/08/2023 Document Reviewed: 07/08/2023 [employer] Patient Education ? 2023 [employer] Laser Therapy for Kidney Stones Laser [...] including vitamins, herbs, eye drops, creams, and asej-drs-yjiomcd medicines. ? Any problems you or family [...] foods. Do not e (more content not included)...[facility]09-[facility] History of Present illness Narrative* Kali Conklin, JODI - 08/17/2024 2:40 PM EDT Patient: Valentin [...] shoe gear Allergies: Allergies Allergen Reactions Aspirin Buf(Tqfuul-Xcmrwt-Ahu) Other Reaction(s): Other (See Comments), Unknown Abdominal [...] Resource Strain: Low Risk (04/14/2023) [facility] [employer] Overall Financial Resource Strain (CARDIA) Difficulty of Paying Living Expenses: Not hard at all Food Insecurity: No Food Insecurity (06/14/2024) Received from [employer] Hunger Screening Within the past 12 months we worried whether our food would run out before we got money to buy more.: Never True Within the past 12 months the food we bought just didn't last and we didn't have money to get more.: Never True Transportation Needs: No Transportation Needs (04/14/2023) [facility] [employer] PRAP[facility] - Transportation Lack of Transportation (Medical): No Lack of Transportation (Non-Medical): No Physical Activity: Inactive (05/01/2024) Received from [employer] Exercise Vital Sign Days of Exercise per Week: 0 days Minutes of Exercise per Session: 0 min Stress: No Stress Concern Present (04/14/2023) [facility] [employer], [facility] [employer] [employer]ational Health - Occupational Stress Questionnaire Feeling of Stress : Not at all Social Connections: Moderately Integrated (04/14/2023) [facility] [employer], [facility] Social Connection and Isolation Panel [NHANES] Frequency of Communication with Friends and Family: Once a week Frequency of Social Gatherings with Friends and Family: Once a week Attends Mandaen Services: More than 4 times per year Active Member of Clubs or Organizations: Yes Attends Club or Organization Meetings: Never Marital Status: Intimate Partner Violence: Not on file Housing Stability: Low Risk (04/14/2023) [facility], [facility] Housing Instability Are you worried [...] Podiatry Kali Conklin DPM documented in this encounterKansas City VA Medical [id number] Evaluation note* Diagnosis Onset Date Resolution Status [...] of breath acute Octob er 2023 9:04am [facility] Work Phone: 1([phone]) 797-746507-26-2024 Miscellaneous Notes* Telephone Encounter - Karin Camacho [...] note stated he understood documented in this encounterGrace Cottage HospitalBikanta07-26-2024 Telephone encounter Note* Telephone Encounter - Karin [...] Recheck in 6 months. Continue current regimen [facility] [id number] Telephone encounter Note* Telephone Encounter - Ally Phillips CMA - 06/15/2024 10:34 AM EDT Pt called read your note stated he understood [facility]07-25-2024 History of Present illness Narrative* Sascha Sutton, - 06/14/2024 1:30 PM EDT Subjective Patient [...] Objective Physical Exam Exam conducted with a toaster element repairer present (Junior Collins MS III). Constitutional: General: [...] and encouraged to continue. documented in this encounterDayton VA Medical Center06-25-2024 Hospital Discharge instructions Patient Education [...] urethra. Follow these instructions at home: Take konx-pnq-tsdugpu and prescription medicines only as told by [...] provider. Document Revised: 05/26/2022 Document Reviewed: 05/26/2022 Overblog Patient Education 2022 Robert Applebaum MD. Follow Up Care 03/20/2024 12:59:39 With:LEAH KHAN PA-C, URL Address: [address] [place] [address] When: Unknown [facility] 06-11-2024 History of Present illness Narrative* Sascha Teagan Herman, DO - 05/01/2024 10:20 AM EDT Subjective [...] you use? (check all that apply): (!) Canherrera Walker Hearing Assessment Do you strain or [...] Do you have a durable power of analyst?: Yes Cognitive Screening Do you have trouble [...] 1 year (around 05/01/2025). documented in this encounterDayton [facility] Medical Center04-30-2024 Hospital Discharge instructions Patient Education [...] stimulation). ?For women, using a medical office rep to prevent urine leaks. This is a [...] right after experiencing incontinence. General instructions Take oxtx-qua-ibooxza and prescription medicines only as told by [...] important. Where to find more information National Michael of Diabetes and Digestive and Kidney Diseases: www.niddk.nih.gov [employer] [employer]: www.urologyhealth.org Contact a health care [...] provider. Document Revised: 06/12/2021 Document Reviewed: 06/12/2021 Overblog Patient Education 2022 Robert Applebaum MD. 03/20/2024 13:11:28 Cancer Screening for Men Cancer [...] if anything looks unusual. Men with a qjbddp-eopb-hwjgha risk for skin cancer may want to see a medical reception specialist (equipment driver) for an annual body check. What are the benefits of screening? Cancer screening is done to look for cancer in the very early stages, before it spreads and becomesharder to treat and before you would start to notice symptoms. Finding cancer early improves the chances of successful treatment. It may save your life. Where to find more information [place] [employer]: www.cancer.org Centers for Disease Control and Prevention: www.cdc.gov National Cancer Michael: www.cancer.gov Contact a health care provider if: [...] provider. Document Revised: 04/05/2022 Document Reviewed: 10/03/2020 Overblog Patient Education 2022 Robert Applebaum MD. 03/20/2024 13:11:20 Urinary Incontinence Urinary Incontinence Urinary [...] stimulation). ?For women, using a medical office rep to prevent urine leaks. This is a [...] right after experiencing incontinence. General instructions Take eebi-tud-djgmqhp and prescription medicines only as told by [...] important. Where to find more information National Michael of Diabetes and Digestive and Kidney Diseases: www.niddk.nih.gov [employer]: www.urologyhealth.org Contact a health care [...] provider. Document Revised: 06/12/2021 Document Reviewed: 06/12/2021 Overblog Patient Education 2022 Robert Applebaum MD. 03/20/2024 13:11:17 Kidney Stones, Mdmg-qn-Yjyn Kidney Stones Kidney stones are rock-like masses [...] Follow these instructions at home: Medicines Take qiex-qsw-dyoipqf and prescription medicines only as told by [...] provider. Document Revised: 07/12/2022 Document Reviewed: 07/12/2022 Overblog Patient Education 2022 Robert Applebaum MD. Follow Up Care 03/16/2024 08:31:59 With:FRANCIS Jimenez APRN, Daria Lechuga, NEYMAR, URL Address: When: Unknown Comments:8 wk w/ PVR [facility] 03-21-2024 Evaluation note* Author Мария [facility] Authored February 09, 2024 4:3 [...] follow-up for surgical consult with Dr. Khalil. [facility] Work Phone: 1(916) 295-496002-28-2024 Hospital Discharge instructions Patient Education 01/18/2024 09:34:25 [...] Follow these instructions at home: Medicines Take hkwl-jno-lhregmw and prescription medicines only as told by [...] provider. Document Revised: 10/04/2022 Document Reviewed: 07/12/2022 Overblog Patient Education 2022 Robert Applebaum MD. 01/18/2024 09:34:24 Lithotripsy Lithotripsy Lithotripsy is a [...] including vitamins, herbs, eye drops, creams, and wqhy-jgg-eynczna medicines. Any problems you or family members [...] provider tells you to take them. Taking esmn-tpt-prikmys medicines, vitamins, herbs, and supplements. Tests You [...] provider. Document Revised: 10/04/2022 Document Reviewed: 07/12/2022 Overblog Patient Education 2022 Robert Applebaum MD. Follow Up Care 01/03/2024 14:10:04 With:FLAVIO ONEAL, Zac De Oliveira, URL Address: [facility] [address], [place] [address]- When: Unknown [facility] 02-09-2024 Evaluation note* Encounter Date [...] issue: - Obtain release of information from [facility] for physical therapy notes - Schedule bilateral upper extremity EMG - Follow up in six weeks or after EMG completion Dec, Other Note: Patient h as a history of lupus, previous surgeries, and steroid injections in the knees. [employer] Other 02-07-2024 History of Present illness Narrative* Bharath Cain DPM - 12/28/2023 2:00 PM EST [...] X-rays 3 views taken left foot at [facility] reveal fracture of the head of [...] may cancel that appointment. documented in this encounterKansas City VA Medical [id number] History of Present illness Narrative* Sascha Sutton, - 12/14/2023 9:30 AM EST Subjective Patient [...] Objective Physical Exam Exam conducted with a toaster element repairer present (Junior Collins MS III). Constitutional: Appearance: [...] views; Future - [facility] [place], [place]; Future Check x-ray of lumbar spine. [...] Monitor portion sizes. 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[facility]) Follow up with receptionist doctor's office as directed Antiphospholipid syndrome (CMS-HCC) Follow-up with specialist as directed. Cubital tunnel syndrome on right Can try an elbow pad to see if that helps. Consider ortho consult. Paresthesias Intermittent paresthesias on the left side of his neck. Possibly coming from cervical disc disease.Previous cervical CT scan reviewed and did show moderate degenerative disc disease with encroachment of the neural foramina. documented in this encounterDayton VA Medical Center10-30-2023 Hospital Discharge instructions Patient Education [...] include: ?8 oz (237 mL) of milk, dyeinla-zxhdqnzofjdi-wmzpf milk, and calcium- fortifiedfruit juice. Calcium-fortified means [...] ?Spinach (cooked), rhubarb, beets, sweet potatoes, and Uzbek chard. ?Peanuts. ?Potato chips, vietnamese fries, and baked potatoes with skin on. ?Nuts and nut products. ?Chocolate. If you regularly take a diuretic medicine, make sure to eat at least 1 or 2 servings of fruits or vegetables that are high in potassium each day. These include: ?Avocado. ?Banana. ?[place], prune, carrot, or tomato juice. ?Baked potato. [...] magnesium, fish oil, or vitamin B6. Take soxs-npz-nuawwxm and prescription medicines only as told by [...] Casseroles. Pizza. Lasagna. Frozen meals. Potato chips. Nepali fries. The items listed above may not [...] provider. Document Revised: 07/19/2022 Document Reviewed: 07/19/2022 Overblog Patient Education 2022 Robert Applebaum MD. Follow Up Care 08/08/2023 12:11:26 With:Zac MUNIZ MD, URL Address: [facility] [address] [place] [address]- [phone] When: Unknown [facility] 07-05-2023 Hospital Discharge instructions Follow Up Care 05/25/2023 15:06:06 With:Zac MUNIZ MD, URL Address: [facility] [address] [place] [address]- [phone] When: Unknown [facility] 05-15-2023 Procedure [facility]05-15-2023 Hospital Discharge instructions Additional Instructions DISCHARGE INSTRUCTIONS FOR CARDIAC THREADING MACHINE SETTER PHONE NUMBER OF YOUR PHYSICIAN: [phone] PROCEDURE: Heart Cath The following instructions have [...] cold, numb, blue or white, call the account [facility] immediately. 4. ACTIVITY: You are advised to [...] bottle, follow the instructions on the bottle. [facility] is not responsible for incorrect prescription information provided by the patient during their visit. Do not stop your medications without consulting your health care provider. Please take the list with you to your next doctor's appointment.[facility] Work Phone: 1(544) 282-707904-30-2023 Chief complaint Narrative - Reported* VALENTIN TORRE is being seen for a consultation for chest pain. * 67-year-old gentleman seen in cardiology consultation at the request of Dr. Sutton following an episode of severe chest discomfort with left and right neck radiation that occurred at [facility] this past Tuesday with subsequent stress imaging performed after he was admitted at [facility] that was reportedly unremarkable. Patient has since [...] with a heart catheterization sometime next week [facility] [address] DO Work Phone: 1(600) 883-344505-20-2022 NotePROCEDURE: XR SHOULDER RT 2V or > [...] [facility] Center[facility] summary Author Gabi Almaznar [facility] Note Date/Time February 16, 2025 3:0 1pm [facility] [address] [place] [address] Discharge Summary Signed Patient: Valentin Torre MR#: [id number] : 1955 Acct:[id number] Age/Sex: 69 / M Adm Date: 5 Loc: Room: [address] [place] [address]: Gabi Almanzar MD Copies to: [...] Pain) triamcinolone acetonide [Nasal Allergy] 55 mcg Aerosol,[place] 1 spray INTRANASAL DAILY carboxymethylcellulose sodium [Refresh [...] Continuity of Care Document Health Concerns: A [facility] screening has identified you as FRAIL [...] Four Ways to Beat the Frailty Risk [email or web address]- qpnb-lv-bqmc-acx-msnwslb-bkkw Exam Physical Exam Vital Signs: Temp Pulse [...] % (Auto) 78.4, Lymph % (Auto) 11.0, [place] % (Auto) 9.6, Eos % (Auto) 0.7, Baso % (Auto) 0.3, Nucleat RBC Rel Count 0.1, Neut # (Auto) 7.1, Lymph # (Auto) 1.0, [place] # (Auto) 0.9 H, Eos # (Auto) [...] 10 Documented By: Gabi Almanzar MD 02/16/25 8818 Signed By: <Electronically signed by Gabi Almanzar MD> 02/16/25 1804 [facility] Work Phone: Evaluation + Plan note Future Appointments Appointment Date:08/08/2023 11:45:00 AM Scheduled Provider:Zac MUNIZ MD Location:[facility] Appointment Type:URO Office Visit [facility] evaluation + Plan note Future Appointments Appointment Date:09/19/2023 09:30:00 AM Scheduled Provider:Zac MUNIZ MD Location:[facility] Appointment Type:URO Office Visit [facility] evaluation + Plan note Future Appointments Appointment Date:03/23/2024 08:15:00 AM Scheduled Provider:Zac MUNIZ MD Location:[facility] Appointment Type:URO Office Visit Diagnostic Tests Pending * Electrolyte Panel 09/19/23 [facility] evaluation + Plan note Future Appointments Appointment Date:03/23/2024 08:15:00 AM Scheduled Provider:Zac MUNIZ MD Location:[facility] Appointment Type:URO Office Visit [facility] Evaluation + Plan note Future Appointments Appointment Date:03/23/2024 08:15:00 AM Scheduled Provider:Zac MUNIZ MD Location:[facility] Appointment Type:URO Office Visit Diagnostic Tests Pending * Calculi [facility]ments Appointment Date:05/15/2024 09:30:00 AM Scheduled Provider:FRANCIS Jimenez APRN, [place] [facility] Location:[facility] Appointment Type:URO Office Visit Appointment Date:09/03/2024 09:45:00 AM Scheduled Provider:[facility] evaluation + Plan note Future Appointments Appointment Date:09/03/2024 09:45:00 AM Scheduled Provider:Zac MUNIZ MD Location:[facility] Appointment Type:URO Office Visit [facility] evaluation + Plan note Future Appointments Appointment Date:06/12/2025 07:30:00 AM Scheduled Provider:Zac MUNIZ MD Location:[facility] Appointment Type:URO Procedure 15 min [facility] Future Appointments Appointment Date:07/01/2025 08:45:00 AM Scheduled Provider: Location:[facility] Appointment Type:URO Nurse Visit Appointment Date:07/19/2025 08:00:00 AM Scheduled Provider:Zac MUNIZ MD Location:[facility] Appointment Type:URO Office Visit [facility] Mg Evaluation noteNo assessment information available [facility] Work Phone: Evaluation note* Diagnosis [...] of lumbosacral spine acute Chronic pain acute [facility] Work Phone: Evaluation note* Diagnosis Onset [...] of lumbosacral spine acute Chronic pain acute [facility] Work Phone: Evaluation note* Diagnosis Onset [...] of lumbosacral spine acute Chronic pain acute [facility] Work Phone: Evaluation note* Diagnosis Onset [...] spine acute Chronic pain acute [facility] Work Phone: Evaluation note* Diagnosis [...] of lumbosacral spine acute Chronic pain acute [facility] Work Phone: Evaluation note* Diagnosis Onset [...] of lumbosacral spine acute Chronic pain acute [facility] Work Phone: Evaluation note* Diagnosis Onset [...] of lumbosacral spine acute Chronic pain acute [facility] Work Phone: Evaluation note* Diagnosis Onset [...] pain acute Osteoarthritis of right hip acute [facility] Work Phone: Evaluation note* Diagnosis Onset [...] pain acute Osteoarthritis of right hip acute [facility] Work Phone: Evaluation note* Diagnosis Onset [...] acute Primary osteoarthritis of right hip acute [facility] Work Phone: Evaluation note* Diagnosis Onset [...] acute Cough acute Shortness of breath acute [facility] Work Phone: Evaluation note* Diagnosis Intention tremor- [...] neoplasm of prostate documented [facility] Diagnosis Acquired inequality of [...] 33.9 in adult documented in this encounter [facility]* Diagnosis Intention tremor- Primary Essential and other specified forms of tremor Piriformis syndrome of right side documented [facility] Diagnosis Intention tremor Essential and [...] of skin sensation [facility]* Diagnosis Medicare annual wellness visit, subsequent- Primary Screening for depression documented [facility] Diagnosis Essential hypertension- Primary Unspecified essential hypertension Class 1 obesity due to excess calories with serious comorbidity and body mass index (BMI) of 33.0 to 33.9 in adult [facility] Diagnosis Upper respiratory tract infection, unspecified type- Primary documented [facility]* Diagnosis Subacute frontal sinusitis- Primary Hoarseness Dysphonia documented [facility]* Diagnosis Skin fissure- Primary Other specified disorder of skin Pain due to onychomycosis of toenails of both feet 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 Exostosis of both feet documented in this encounter [facility]* Diagnosis 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 Skin fissure Other specified disorder of skin documented in this encounter [facility]* Diagnosis Abrasion of anterior right lower leg, subsequent encounter- Primary Cellulitis of right lower extremity Contusion of right lower leg, subsequent encounter documented [facility] Diagnosis Right leg weakness- Primary Muscle weakness (generalized) Fall, initial encounter Lumbosacral stenosis with neurogenic claudication Perforation of right tympanic membrane [facility]* Diagnosis Tenosynovitis of right lower leg- Primary 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 Xerosis cutis Other specified disease of sebaceous glands Su splint, right, initial encounter Contracture of right ankle documented in this encounter [facility]* Diagnosis Xerosis cutis- Primary [...] of sebaceous glands documented in this encounter [facility]* Diagnosis Other chest pain- Primary Thoracic region somatic dysfunction Nonallopathic lesion of thoracic region, not elsewhere classified Essential hypertension Unspecified essential hypertension documented [facility]* Diagnosis Piriformis syndrome of right side- Primary Intention tremor Essential and other specified forms of tremor documented in this encounter [facility]* Diagnosis Tenosynovitis of right lower leg- Primary Su splint, right, initial encounter 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 Contracture of right ankle Xerosis cutis Other specified disease of sebaceous glands Pain due to onychomycosis of toenails of both feet documented in this encounter [facility]* Diagnosis Lumbar radiculopathy- Primary Thoracic or lumbosacral neuritis or radiculitis, unspecified Pain of right lower leg documented [facility] Diagnosis Medicare annual wellness visit, subsequent- Primary Screening for depression documented [facility]* Diagnosis Intention tremor- Primary Essential and other specified forms of tremor Polyneuropathy Unspecified hereditary and idiopathic peripheral neuropathy documented in this encounter [facility]* Diagnosis Moderate persistent asthma, unspecified whether complicated- Primary Class 2 severe obesity due to excess calories with serious comorbidity and body mass index (BMI) of 35.0 to 35.9 in adult ([facility]) documented in this [facility]* Diagnosis Tenosynovitis of right lower leg documented in this encounter [facility]* Diagnosis Hospital discharge follow-up- Primary Other follow-up examination Syncope, unspecified syncope type documented [facility]* Diagnosis Preop cardiovascular exam Pre-operative cardiovascular examination Syncope, unspecified syncope type Mixed hyperlipidemia Essential (primary) hypertension Unspecified essential hypertension PVC (premature ventricular contraction) Other premature beats Systemic lupus erythematosus, unspecified SLE type, unspecified organ involvement status (Multi) BMI 34.0-34.9,adult Former smoker Personal history of tobacco use, presenting hazards to health documented in this encounter [facility] Work Phone: Evaluation note* Diagnosis Tenosynovitis of right lower leg- Primary Pain due to onychomycosis of toenails of both feet Xerosis cutis Other specified disease of sebaceous glands Su splint, right, initial encounter 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 documented [facility] Diagnosis Syncope, unspecified syncope type- Primary Neuropathy Mononeuritis of unspecified site Hypersomnia with sleep apnea Hypersomnia with sleep apnea, unspecified Rheumatoid arthritis, involving unspecified site, unspecified whether rheumatoid factor present ([facility]) Intention tremor Essential and other specified forms of tremor Cervicogenic headache Headache documented in this encounter [facility] general [...] back surgery 2019 Hospitalization History See above [employer] Other History of Present illness Narrative* The [...] medication regimen. He denies medication side effects. -[facility] DO Work Phone: History of Present [...] and treatment. Allergies: Allergies Allergen Reactions Aspirin Buf(Auuxpb-Cnnlnq-Uyq) Other Reaction(s): Other (See Comments), Unknown Abdominal [...] Resource Strain: Low Risk (04/14/2023) [facility] [employer], [facility] Overall Financial Resource Strain (CARDIA) Difficulty of Paying Living Expenses: Not hard at all Food Insecurity: No Food Insecurity (09/24/2024) Received from [employer] Hunger Screening Within the past 12 months we worried whether our food would run out before we got money to buy more.: Never True Within the past 12 months the food we bought just didn't last and we didn't have money to get more.: Never True Transportation Needs: No Transportation Needs (04/14/2023) Received from [employer], [facility] PRAPARE - Transportation Lack of Transportation (Medical): No Lack of Transportation (Non-Medical): No Physical Activity: Inactive (05/01/2024) Received from [employer] Exercise Vital Sign Days of Exercise per Week: 0 days Minutes of Exercise per Session: 0 min Stress: No Stress Concern Present (04/14/2023) Received from [employer], [facility] [employer] - Occupational Stress Questionnaire Feeling of Stress : Not at all Social Connections: Moderately Integrated (04/14/2023) Received from [employer], [facility] Social Connection and Isolation Panel [NHANES] Frequency of Communication with Friends and Family: Once a week Frequency of Social Gatherings with Friends and Family: Once a week Attends Mandaen Services: More than 4 times per year Active Member of Clubs or Organizations: Yes Attends Club or Organization Meetings: Never Marital Status: Intimate Partner Violence: Not on file Housing Stability: Low Risk (04/14/2023) Received from [employer] [facility], [facility] Housing Instability Are you worried [...] longer than right leg of a proximally wqz-speqlpo-dfih ASSESSMENT 1. 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 Will need to sign YADI in Kali Conklin DPM documented in this encounter[facility] Healthcare[facility] of Present illness Narrative * Kali Conklin DPM - 01/24/2025 11:20 AM EST Patient: Valentin Trore : 1955 PCP: Sascha Sutton MD SUBJECTIVE [...] and has been using prescribed or recommended qydm-rdn-jtgdaph cream with improvement. Allergies: Allergies Allergen Reactions Aspirin Buf(Wucnxy-Mqykpe-Fts) Other Reaction(s): Other (See Comments), Unknown Abdominal [...] Resource Strain: Low Risk (04/14/2023) Received from [employer], [employer] [facility] Overall Financial Resource Strain (CARDIA) Difficulty of Paying Living Expenses: Not hard at all Food Insecurity: No Food Insecurity (12/17/2024) Received from [employer] Hunger Screening Within the past 12 months we worried whether our food would run out before we got money to buy more.: Never True Within the past 12 months the food we bought just didn't last and we didn't have money to get more.: Never True Transportation Needs: No Transportation Needs (04/14/2023) Received from [employer], [employer] PRAPARE - Transportation Lack of Transportation (Medical): No Lack of Transportation (Non-Medical): No Physical Activity: Inactive (05/01/2024) Received from [employer] Exercise Vital Sign Days of Exercise per Week: 0 days Minutes of Exercise per Session: 0 min Stress: No Stress Concern Present (04/14/2023) Received from [employer], [employer] [facility] [employer] - Occupational Stress Questionnaire Feeling of Stress : Not at all Social Connections: Moderately Integrated (04/14/2023) Received from [employer], [facility] Social Connection and Isolation Panel [NHANES] Frequency of Communication with Friends and Family: Once a week Frequency of Social Gatherings with Friends and Family: Once a week Attends Mandaen Services: More than 4 times per year Active Member of Clubs or Organizations: Yes Attends Club or Organization Meetings: Never Marital Status: Intimate Partner Violence: Not on file Housing Stability: Low Risk (04/14/2023) [facility] [employer], [facility] Housing Instability Are you worried or [...] longer than right leg of a proximally iqy-rjrlexs-crod Positive palpation right heel fissure ASSESSMENT 1. [...] in chart if warranted. Patient to pay qus-hn-[id number] Kali Conklin DPM [facility] Narrative No data available for this section [facility] Hospital Discharge instructions No data available for this section [facility] Hospital Discharge instructions Additional Instructions Your [...] or concerns, do not hesitate to come back.[facility] Work Phone: Hospital Discharge instructions [...] appointment to see your physician in two weeks.[facility] Work Phone: Hospital Discharge instructions Additional [...] primary care provider, you can contact the [facility] orthopaedic clinic and ask about being established for primary care services. If you require specialist follow up, such as with an orthopedic physician, account executive healthcare, urologist, or other medical specialty, you should [...] should first take Tylenol or ibuprofen available likq-skg-qfnjbyl. Medications, if prescribed to treat pain from [...] ED or if you have any other concernsUniversity [facility]als [facility] Work Phone: InstructionsNot on filedocumented in this [...] Care Everywhere. * Syncope (fainting) Discharge instructions ([place]i) documented in this encounterProMedica Health SystemInstructionsNot on file documented in this encounterProMedica Health SystemProgress note No data available for this section [facility] reason for referral (narrative)* Consultation (Routine) - Authorized Specialty Diagnoses / Procedures Referred By Jd jiménez Referred To Contact Rehabilitation Diagnoses Midline low back pain without sciatica, unspecified chronicity Sascha Sutton, DO [address] [place] [address] [facility] [address] [place] [address] Referral ID Status Reason Start Date Expiration Date Visits Requested Visits Authorized [id number] Authorized Specialty Services Required 12/14/2023 12/13/2024 1 1 ER [facility] for referral (narrative)No reason for referral information [facility] Work Phone: Summary Purpose Family History No [...] Time Advance Directives Yes January 29 024 3:03pm Advance Directive Response Recorded Date/ Time Advance Directives Yes May 28 2:11pm Advance Directive Response Recorded Date/ Time Advance Directives Yes June 27 024 2:59pm Advance Directive Response Recorded Date/ [...] 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 MCKENZIE KHALIL MARÍA LUMBAR [...] 10:16am Primary osteoarthritis of right hip [facility] 2023 10:05am Cough September 19, 2024 9 [...] Date Primary osteoarthritis of right hip Nove [facility] 2023 8:46am Greater trochanteric bursitis of right [...] Date Primary osteoarthritis of right hip Nove [facility] 2023 8:46am Greater trochanteric bursitis of right h ip November 09, 2024 10:51am Primary osteoarthritis of right hip Dece [facility] 2023 10:51am Arthritis of facet joint of [...] :58am Chief Complaint Admit Date 4 MONTHS Candi 6th, 2025 9: 44am Z12.5 E78.5 I10 December 07, [...] 2025 9:00am Iliotibial band syndrome, right leg [facility] 2024 9:00am Primary osteoarthritis of right hip [facility] 2024 9:00am Dyslipidemia February 15, 2025 11: [...] 2025 7:52 am Osteoarthritis of right hip Ekaterina 3rd, 2 025 7:52am Arthritis of facet joint [...] am Osteoarthritis of right hip February 21 025 7:52am Arthritis of facet joint of [...] 10, 2025 9:30am Chief Complaint Admit Date R06.02 R06.00 35.9 Z79.899 May 01 7:28am R06.02 R06.00 35.9 Z79.899 May 01 10:25pm r55 June 25, 2025 10: 27am R55 G62.9 July 17, 2025 3: 00pm Chief Complaint Admit Date R06.02 R06.00 35.9 Z79.899 May 01 7:28am R06.02 R06.00 35.9 Z79.899 May 01 10:25pm r55 June 25, 2025 10: 27am R55 G62.9 July 17, 2025 3: 00pm r55 i49.3 July 24, 2025 9:02am Chief Complaint Admit Date r5June 25, 2025 10: 27am R55 G62.9 July 17, 2025 3: 00pm r55 i49.3 July 24, 2025 9:02am m06.4 m36.8 z79.899 August 07, 2025 7:34am Chief Complaint Admit Date r5June 25, 2025 10: 27am R55 G62.9 July 17, 2025 3: 00pm r55 i49.3 July 24, 2025 9:02am m06.4 m36.8 z79.899 August 07, 2025 7:34am MARÍA LUMBAR RFA L3 L4/DS July 12:52pm Chief Complaint * Routine f/u: 'heart stuart [...] region without neurogenic claudication (M48.061) Referral Organization [facility] urosurgery Referring Provider First Name Мария Referring Provider Last Name David Referring Provider Specialty Nurse Pract itionetaras Referred Organization [facility] Referred Provider Primo Jenkins Referred Address [address] [facility] [place],[address] Referred Provider Specialty Neurology Referral Priority Routine [...] section and content) DATE CREATED AUTHOR 05/09/2018 [facility] DATE CREATED AUTHOR AUTHOR'S ORGANIZ ATION 05/10/2018 [facility] DATE CREATED AUTHOR AUTHOR'S ORGANIZ ATION 03/29/2023 [facility] DATE CREATED AUTHOR AUTHOR'S ORGANIZ ATION 04/01/2023 [employer] DATE CREATED AUTHOR AUTHOR'S ORGANIZ ATION 04/05/2023 [facility] DATE CREATED AUTHOR AUTHOR'S ORGANIZ ATION 12/18/2023 [facility] DATE CREATED AUTHOR AUTHOR'S ORGANIZ ATION 02/20/2024 [facility] DATE CREATED AUTHOR AUTHOR'S ORGANIZ ATION 06/13/2025 [facility] DATE CREATED AUTHOR AUTHOR'S ORGANIZ ATION 08/25/2025 [facility] EPIC DATE CREATED AUTHOR AUTHOR'S ORGANIZ ATION 08/26/2025 [facility] DATE CREATED AUTHOR AUTHOR'S ORGANIZ ATION 08/29/2025 [facility] V[facility] DATE CREATED AUTHOR AUTHOR'S ORGANIZ ATION 08/29/2025 [facility] [employer] Analyst Teams (unrecognized sec tion and content) Team [...] Status: Inactive Member Role Status Dates Sascha Furlong , DO Primary Care Provider Active Melanie Trujillo DO Attending Provider Active Team Status: Inactive Member Role Status Dates Sascha Cynthiacierra , DO Primary Care Provider, Attending Simba pfeiffer Active Team Status: Inactive Member Role Status Dates Sascha Sutton , DO Primary Care Provider Active Edenilson Reinoso Jr, MD Emergency Provider Active Team Status: Inactive Member Role Status Dates Sascha Sutton , DO Primary Care Provider Active Romel Orta DO Emergency Provider Active Team Status: Inactive Member Role Status Dates Sascha Sutton , DO Primary Care Provider Active Zac Muniz MD Attending Provider Active Team Status: Inactive Member Role Status Dates Sascha Sutton , DO Primary Care Provider Active Christine Sanchez NP-Dannie Attending Provider Active Zac Muniz MD Referring Provider Active Team Status: Inactive Member Role Status Dates Sascha Sutton , Primary Care Provider Active Romel Davis MD Attending Provider Active Team Status: Inactive Member Role Status Dates Sascha Sutton , DO Primary Care Provider Active Start: September 12, 2023 End: September 12, 2023 Romel Davis MD Attending Provider Active St art: September 12, 2023 End: September 12, 2023 Team Status: Inactive Member Role Status Dates Sascha CynthiaDO cierra Primary Care Provider Active Start: October 20, 2023 End: October 20, 2023 Zac Muniz MD Attending Provider Active St art: October 20, 2023 End: October 20, 2023 Team Status: Inactive Member Role Status Dates Sascha Cynthiacierra , Primary Care Provider Active Start: December 08, 2023 End: December 08, 2023 Romel Davis MD Attending Provider Active St art: December 08, 2023 End: December 08, 2023 Team Status: Inactive Member Role Status Dates Sascha Sutton DO Primary Care Provide r, Attending Provider Active Start: December 15, 2023 End: December 15, 2023 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 Start Date End Date Sascha Sutton MD [address] [facility] [place] [address] PCP - General Family Medicine 12/28/23 Team Status: Inactive Member Role Status Dates Sascha Sutton DO Primary Care Provider Active Start: December 30, 2023 End: December 30, 2023 TIM BarrosC Attending Provider Active Start: December 30, 2023 [...] February 09, 2024 End: February 09, 2024 TIM BarrosC Attending Provider Active Start: February 09, 2024 [...] October 10, 2024 End: October 10, 2024 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 Start Date End Date Sascha Sutton MD [address] [place] [address] PCP - General Family Medicine 12/28/23 Mckenzie Khalil MD [address], [place] [address] Referring Physician Neurosurgery 06/13/24 Carlos Eden DO [address] [place] [address] Otolaryngology 06/13/24 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 Start Date End Date Sascha Sutton MD [address], [place] [address] PCP - General Family Medicine 12/28/23 Mckenzie Khalil MD [address], [place] [address] Referring Physician Neurosurgery 06/13/24 Carlos Eden DO [address] [place] [address] Otolaryngology 06/13/24 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 Start Date End Date Sascha Sutton MD [address], [place] [address] PCP - General Family Medicine 12/28/23 Mckenzie Khalil MD [address], [place] [address] Referring Physician Neurosurgery 06/13/24 Carlos Eden DO [address] [place] [address] Otolaryngology 06/13/24 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 Start Date End Date Sascha Sutton MD [address], [place] [address] PCP - General Family Medicine 12/28/23 Mckenzie Khalil MD [address] [place] [address] [address] [place] [address] Referring Physician Neurosurgery 06/13/24 Carlos Eden DO [address] [place] [address] Otolaryngology 06/13/24 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 Start Date End Date Sascha Sutton MD [address], [place] [address] PCP - General Family Medicine 12/28/23 Mckenzie Khalil MD [address] [place] [address], [address] [place] [address] Referring Physician Neurosurgery 06/13/24 Carlos Eden, [address] [place] [address] Otolaryngology 06/13/24 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 Start Date End Date Sascha Sutton DO [address], [place] [address] PCP - General Family Medicine 09/23/22 Team [...] Attending Provider Active Start: November 26, 2024 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 Start Date End Date Sascha Sutton MD [address], [place] [address] PCP - General Family Medicine 12/28/23 Mckenzie Khalil MD [address], [place] [address] Referring Physician Neurosurgery 06/13/24 Carlos Eden DO [address] [place] [address] Otolaryngology 06/13/24 Team Status: Inactive Member Role Status Dates Sascha Sutton DO Primary Care Provide r, Attending Provider Active Start: December 07, 2024 End: December 07, 2024 Team Status: Active Member Role Status Dates Sascha Sutton DO Primary Care Provider Active Start: December 07, 2024 Jaime Murcia II, MD Attending Provider Active Start: December 07, 2024 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 Start Date End Date Sascha Sutton MD [address], [place] [address] PCP - General Family Medicine 12/28/23 Mckenzie Khalil MD [address], [place] [address] Referring Physician Neurosurgery 06/13/24 Carlos Eden DO [address] [place] [address] Otolaryngology 06/13/24 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 Start Date End Date Sascha Sutton MD [address], [place] [address] PCP - General Family Medicine 12/28/23 Mckenzie Khalil MD [address], [address] [place] [address] Referring Physician Neurosurgery 06/13/24 Carlos Eden DO [address] [place] [address] Otolaryngology 06/13/24 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 Start Date End Date Sascha Sutton DO [address], [place] [address] PCP - General Family Medicine 09/23/22 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 Start Date End Date Sascha Sutton MD [address], [place] [address] PCP - General Family Medicine 12/28/23 Mckenzie Khalil MD [address], [place] [address] Referring Physician Neurosurgery 06/13/24 Carlos Eden DO [address] [place] [address] Otolaryngology 06/13/24 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 Start Date End Date Sascha Sutton MD [address], [place] [address] PCP - General Family Medicine 12/28/23 Mckenzie Khalil MD [address] [place] [address], [address] [place] [address] Referring Physician Neurosurgery 06/13/24 Carlos Eden, DO [address] [place] [address] Otolaryngology 06/13/24 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 Start Date End Date Sascha Sutton DO [address], [place] [address] PCP - General Family Medicine 09/23/22 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 Start Date End Date Sascha Sutton DO [address], [place] [address] PCP - General Family Medicine 09/23/22 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 Start Date End Date Sascha Sutton DO [address], [place] [address] PCP - General Family Medicine 09/23/22 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 Start Date End Date Sascha Sutton DO [address], [place] [address] PCP - General Family Medicine 09/23/22 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 Start Date End Date Sascha Sutton DO [address], [place] [address] PCP - General Family Medicine 09/23/22 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 Start Date End Date Sascha Sutton DO [address], [place] [address] PCP - General Family Medicine 09/23/22 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 Start Date End Date Sascha Sutton DO [address], [place] [address] PCP - General Family Medicine 09/23/22 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 Start Date End Date Sascha Sutton DO [address], [place] [address] PCP - General Family Medicine 09/23/22 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 Start Date End Date Sascha Sutton MD [address], [place] [address] PCP - General Family Medicine 12/28/23 Mckenzie Khalil MD [address] [place] [address] [address] [place] [address] Referring Physician Neurosurgery 06/13/24 Carlos Eden DO [address] [place] [address] Otolaryngology 06/13/24 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 Start Date End Date Sascha Sutton MD [address], [place] [address] PCP - General Family Medicine 12/28/23 Mckenzie Khalil MD [address] [place] [address], [address] [place] [address] Referring Physician Neurosurgery 06/13/24 Carlos Eden DO [address] [facility] [place] [address] Otolaryngology 06/13/24 Team Status: Active Member Role [...] January 14, 2025 End: January 14, 2025 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 Start Date End Date Sascha Sutton MD [facility] [address] [facility], [facility] [place] [address] PCP - General Family Medicine 12/28/23 Mckenzie Khalil MD [address] [place] [address], [address] [place] [address] Referring Physician Neurosurgery 06/13/24 Carlos Eden DO [address] [facility] [place] [address] Otolaryngology 06/13/24 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 Start Date End Date Sascha Sutton DO [address], [place] [address] PCP - General Family Medicine 09/23/22 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 Start Date End Date Sascha Sutton DO [address], [place] [address] PCP - General Family Medicine 09/23/22 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 Start Date End Date Sascha Sutton MD [address], [place] [address] PCP - General Family Medicine 01/30/25 Mckenzie Khalil MD [address] [place] [address], [address] [address] Referring Physician Neurosurgery 06/13/24 Carlos Eden, [address] [facility] [place] [address] Otolaryngology 06/13/24 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 Start Date End Date Sascha Sutton MD [address], [place] [address] PCP - General Family Medicine 01/30/25 Mckenzie Khalil MD [address] [place] [address], [address] [address] Referring Physician Neurosurgery 06/13/24 Carlos Eden DO [address] [place] [address] Otolaryngology 06/13/24 Team Status: Active Member Role Status Dates Sascha Sutton DO Primary Care Provider Active Start: January 24, 2025 Jaime Murcia II, MD Attending Provider Active Start: January 24, 2025 Team Status: Inactive Member Role Status Dates Sascha Sutton DO Primary Care Provide r, Attending Provider Active Start: January 25, 2025 End: January 25, 2025 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 Start Date End Date Sascha Sutton MD [address] [facility] [place] [place] [address] PCP - General Family Medicine 01/30/25 Mckenzie Khalil MD [address] [place] [address] Referring Physician Neurosurgery 06/13/24 Carlos Eden DO [address] [place] [address] Otolaryngology 06/13/24 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 Start Date End Date Sascha Sutton MD [address] [facility] [place] [place] [address] PCP - General Family Medicine 01/30/25 Mckenzie Khalil MD [address] [place] [address] Referring Physician Neurosurgery 06/13/24 Carlos Eden DO [address] [place] [address] Otolaryngology 06/13/24 Team Status: Inactive Member Role [...] February 15, 2025 End: February 16, 2025 Riat Matt MD Other Provider Active Start: February 15, 2025 End: February 16, 2025 Team Status: Inactive Member Role Status Dates Sascha Sutton DO Primary Care Provider Active Start: February 21, 2025 End: February 21, 2025 Edenilson Mcleod MD Attending Provider Active Sta rt: February 21, 2025 End: February 21, 2025 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 Start Date End Date Sascha Sutton MD [address] [facility] [place] [address] PCP - General Family Medicine 01/30/25 Mckenzie Khalil MD [address] [place] [address], [address] [place] [address] Referring Physician Neurosurgery 06/13/24 Carlos Eden DO [address] [place] [address] Otolaryngology 06/13/24 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 Start Date End Date Sascha Sutton MD [address], [place] [address] PCP - General Family Medicine 01/30/25 Mckenzie Khalil MD [address] [place] [address] [address] [place] [address] Referring Physician Neurosurgery 06/13/24 Carlos Eden DO [address] [place] [address] Otolaryngology 06/13/24 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 Start Date End Date Sascha Sutton DO [address], [place] [address] PCP - General Family Medicine 09/23/22 Team Status: Inactive Member Role Status Dates Sascha Sutton DO Primary Care Provider Active Start: January 24, 2025 End: January 24, 2025 Jaime Murcia II, MD Attending Provider Active Start: January 24, 2025 End: January 24, 2025 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 Start Date End Date Sascha Sutton DO [address], [place] [address] PCP - General Family Medicine 09/23/22 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 Start Date End Date Sascha Sutton MD [address], [place] [address] PCP - General Family Medicine 01/30/25 Mckenzie Khalil MD [address] [place] [address], [address] [place] [address] Referring Physician Neurosurgery 06/13/24 Carlos Eden DO [address] [place] [address] Otolaryngology 06/13/24 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 Start Date End Date Sascha Sutton MD [address], [facility] [place] [address] PCP - General Family Medicine 01/30/25 Mckenzie Khalil MD [address] [place] [address] Referring Physician Neurosurgery 06/13/24 Carlos Eden DO [address] [place] [address] Otolaryngology 06/13/24 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 Start Date End Date Sascha Sutton MD [address], [facility] [place] [address] PCP - General Family Medicine 01/30/25 Mckenzie Khalil MD [address] [place] [address], [facility] [address] [place] [address] Referring Physician Neurosurgery 06/13/24 Carlos Eden DO [address] [place] [address] Otolaryngology 06/13/24 Team Status: Active Member Role Status Dates Sascha Mariecierra , DO Primary Care Provider Active Start: March 13, 2025 Edenilson Mcleod MD Attending Provider Active Sta rt: March 13, 2025 Team Status: Active Member Role Status Dates Sascha Mariecierra , DO Primary Care Provider Active Start: March 26, 2025 Jaime Murcia II, MD Attending Provider Active Start: March 26, 2025 Team Status: Inactive Member Role Status Dates Sascha Mariecierra DO Primary Care Provider Active Start: March 27, 2025 End: March 27, 2025 Edenilson Mcleod MD Attending Provider Active Sta rt: March 27, 2025 End: March 27, 2025 Team Status: Active Member Role Status Dates Sascha Mariecierra DO Primary Care Provider Active Start: April 09, 2025 Jaime Murcia II, MD Attending Provider Active Start: April 09, 2025 Team Status: Inactive Member Role Status Dates Sascha Mariecierra , DO Primary Care Provider Active Start: April 10, 2025 End: April 10, 2025 Jaime Murcia II, MD Attending Provider Active Start: April 10, 2025 End: April 10, 2025 Team Status: Active Member Role Status Dates Sascha Mariegeneosmani DO Primary Care Provider Active Start: April 18, 2025 Jaime Murcia II, MD Attending Provider Active Start: April 18, 2025 Team Status: Inactive Member Role Status Dates Sascha Sutton , DO Primary Care Provider Active Start: April [...] Attending Provider Active Start: May 01, 2025 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 Start Date End Date Sascha Sutton MD [address], [place] [address] PCP - General Family Medicine 01/30/25 Mckenzie Khalil MD [address] [place] [address] [address] [place] [address] Referring Physician Neurosurgery 06/13/24 Carlos Eden DO [address] [place] [address] Otolaryngology 06/13/24 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 Start Date End Date Sascha Sutton DO [address], [place] [address] PCP - General Family Medicine 09/23/22 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 Start Date End Date Sascha Sutton DO [address], [place] [address] PCP - General Family Medicine 09/23/22 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 Start Date End Date Sascha Sutton DO PCP - General 03/30/23 Team Status: Inactive Member Role Status Dates Sascha Sutton DO Primary Care Provider Active Start: June 25, 2025 End: June 25, 2025 Melanie Trujillo DO Attending Provider Active S tart: June 25, 2025 End: June 25, 2025 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 Start Date End Date Sascha Sutton MD [address], [place] [address] PCP - General Family Medicine 01/30/25 Mckenzie Khalil MD [address] [place] [address] [address] [place] [address] Referring Physician Neurosurgery 06/13/24 Carlos Eden DO [address] [place] [address] Otolaryngology 06/13/24 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 Start Date End Date Sascha Sutton MD [address], [facility] [place] [address] PCP - General Family Medicine 01/30/25 Mckenzie Khalil MD [address] [place] [address] Referring Physician Neurosurgery 06/13/24 Carlos Eden DO [address] [place] [address] Otolaryngology 06/13/24 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 Start Date End Date Sascha Sutton MD [address], [facility] [place] [address] PCP - General Family Medicine 01/30/25 Mckenzie Khalil MD [address] [place] [address], [address] [address] Referring Physician Neurosurgery 06/13/24 Carlos Eden DO [address] [place] [address] Otolaryngology 06/13/24 Team Status: Active Member Role Status Dates Sascha Cynthiacierra DO Primary Care Provider Active Start: July 17, 2025 WILLOW Marvin Attending Provider Active Start: July 17, 2025 Team Status: Inactive Member Role Status Dates Sascha Sutton DO Primary Care Provider Active Start: July 17, 2025 End: July 17, 2025 WILLOW Marvin Attending Provider Active Start: July 17, 2025 End: July 17, 2025 Team Status: Inactive Member Role Status Dates Sascha Sutton DO Primary Care Provider Active Start: July 24, 2025 End: July 24, 2025 Melanie Trujillo DO Attending Provider Active S tart: July 24, 2025 End: July 24, 2025 Kaitlyn Troy MD Referring Provider Active Start: July 24, 2025 End: July 24, 2025 Team Status: Inactive Member Role Status Dates Sascha CynthiaDO cierra Primary Care Provider Active Start: August 07, 2025 End: August 07, 2025 WILLOW Paul Attending Provider Active Start: August 07, 2025 End: August 07, 2025 Team Status: Inactive Member Role Status Dates Sascha CynthiaDO cierra Primary Care Provider Active Start: August 15, 2025 End: August 15, 2025 Edenilson Mcleod MD Attending Provider Active Sta rt: August 15, 2025 End: August 15, 2025 Goals (unrecognized section and content) Goals may [...] alternate sectionNot on filedocumented as of this encounter Reason for Visit (unrecogniz ed section and [...] Lost 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, recently in [facility] ER 06.07.25 for syncope. Reason Comments Toenail [...] BE BASED ON THE PRIMARY CLINICAL RECORDS. [facility] [employer] provides no warranty or guarantee of the accuracy or completeness of information in this document.
--- NOTE | 2025-09-03 11:29 | PM.PRESUREVA ---
History of Present Illness History of Present Illness Chief complaint: BPH with obstruction Narrative: Patient presents for presurgical testing accompanied by his . Please see HPI from Dr. Iglesias dated August 13, 2025. Review of Systems ROS Narrative REVIEW OF SYSTEMS: Negative except as stated in HPI, ten or more systems reviewed. Constitutional: No fever, chills, weakness ENT: No sore throat or epistaxis Cardiovascular: No edema, chest pain, or palpitations Respiratory: No cough Musculoskeletal: Chronic joint pain Gastrointestinal: No abdominal pain, constipation, diarrhea, or vomiting Genitourinary: No dysuria or hematuria Neurological: No numbness, tingling, weakness, or headache; recent syncopal episodes Psychiatric: No mood changes [facility] Medical History (Updated 09/03/25 @ 11:18 by Christiana [place] NP) Syncope and collapse ?R55 - Syncope and collapse (ICD-10) Syncope ?R55 - Syncope and collapse (ICD-10) Benign prostatic hyperplasia with lower urinary tract symptoms ?N40.1 - Benign prostatic hyperplasia with lower urinary tract symptoms (ICD-10) Intention tremor ?G25.2 - Other specified forms of tremor (ICD-10) Thyroid nodule ?E04.1 - Nontoxic single thyroid nodule (ICD-10) Cleft palate and cleft lip ?Q37.9 - Unspecified cleft palate with unilateral cleft lip (ICD-10) Uses hearing aid ?Z97.4 - Presence of external hearing-aid (ICD-10) S/P extracorporeal shock wave therapy (02/16/24) ?Z98.890 - Other specified postprocedural states (ICD-10) Undifferentiated connective tissue disease ?M35.9 - Systemic involvement of connective tissue, unspecified (ICD-10) H/O coronary angiogram ?Z98.890 - Other specified postprocedural states (ICD-10) Spondylolisthesis ?M43.10 - Spondylolisthesis, site unspecified (ICD-10) Osteoarthritis ?M19.90 - Unspecified osteoarthritis, unspecified site (ICD-10) Hiatal hernia ?K44.9 - Diaphragmatic hernia without obstruction or gangrene (ICD-10) History of esophageal dilatation ?Z98.890 - Other specified postprocedural states (ICD-10) Elevated partial thromboplastin time (PTT) ?R79.1 - Abnormal coagulation profile (ICD-10) History of perforated ear drum ?Z86.69 - Personal history of other diseases of the nervous system and sense organs (ICD-10) Hypertension ?I10 - Essential (primary) hypertension (ICD-10) Lumbar stenosis ?M48.061 - Spinal stenosis, lumbar region without neurogenic claudication (ICD-10) DDD (degenerative disc disease) Skin cancer ?C44.90 - Unspecified malignant neoplasm of skin, unspecified (ICD-10) Ureteral stone with hydronephrosis ?N13.2 - Hydronephrosis with renal and ureteral calculous obstruction (ICD-10) Hematuria ?R31.9 - Hematuria, unspecified (ICD-10) Cleft palate ?Q35.9 - Cleft palate, unspecified (ICD-10) Eye cancer ?C69.90 - Malignant neoplasm of unspecified site of unspecified eye (ICD-10) Osteoporosis ?M81.0 - Age-related osteoporosis without current pathological fracture (ICD-10) Lupus ?M32.9 - Systemic lupus erythematosus, unspecified (ICD-10) Rheumatoid arthritis ?M06.9 - Rheumatoid arthritis, unspecified (ICD-10) Hyperlipidemia ?E78.5 - Hyperlipidemia, unspecified (ICD-10) Kidney stone ?N20.0 - Calculus of kidney (ICD-10) Surgical History (Updated 08/30/25 @ 10:31 by Christiana [place] NP) History of extracorporeal shockwave lithotripsy (ESWL) (10/25/24) ?Z98.890 - Other specified postprocedural states (ICD-10) H/O lithotripsy (10/25/24) ?Z98.890 - Other specified postprocedural states (ICD-10) History of lithotripsy ?Z98.890 - Other specified postprocedural states (ICD-10) History of repair of congenital cleft palate ?Z87.730 - Personal history of (corrected) cleft lip and palate (ICD-10) H/O eye surgery ?Z98.890 - Other specified postprocedural states (ICD-10) History of lumbar laminectomy ?Z98.890 - Other specified postprocedural states (ICD-10) H/O shoulder surgery ?Z98.890 - Other specified postprocedural states (ICD-10) History of tympanoplasty ?Z98.890 - Other specified postprocedural states (ICD-10) H/O Spinal surgery ?Z98.890 - Other specified postprocedural states (ICD-10) H/O esophagogastroduodenoscopy ?Z98.890 - Other specified postprocedural states (ICD-10) Hx of colonoscopy ?Z98.890 - Other specified postprocedural states (ICD-10) History of carpal tunnel release ?Z98.890 - Other specified postprocedural states (ICD-10) H/O arthroscopy of knee ?Z98.890 - Other specified postprocedural states (ICD-10) Hx of total knee arthroplasty ?Z96.659 - Presence of unspecified artificial knee joint (ICD-10) Family History (Updated 02/02/24 @ 08:19 by Stephanie Thakur, RN) Other Family history of diabetes mellitus Family history of hypertension Family history of myocardial infarction Kidney stone Social History (Updated 02/02/24 @ 08:18 by Stephanie Thakur RN) Within the past year, how often did you have a drink containing alcohol: never Score interpretation: A score less than 4 is consistent with normal alcohol consumption. 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 Highest level of school completed/degree received: high school graduate Little interest or pleasure in doing things: not at all Feeling down, depressed, or hopeless: not at all Meds Home Medications and Allergies Home Medications ?Medication ?Instructions ?Recorded ?Confirmed ?Type aspirin 81 mg capsule 81 mg PO DAILY 02/01/24 09/03/25 History fexofenadine-pseudoephedrine ER 1 tab PO Q24H PRN allergy symptoms 02/01/24 09/03/25 History 180 mg-240 mg tablet,ext.release 24 hr (Seema-D 24 Hour) folic acid 1 mg tablet 1 mg PO BID 02/01/24 09/03/25 History hydroxychloroquine 200 mg tablet 200 mg PO BID 02/01/24 09/03/25 History leflunomide 10 mg tablet 10 mg PO DAILY 02/01/24 09/03/25 History lisinopril 20 1 tab PO DAILY 02/01/24 09/03/25 History mg-hydrochlorothiazide 12.5 mg tablet methotrexate sodium 25 mg/mL 25 mg IM QWEEK 02/01/24 09/03/25 History injection solution montelukast 10 mg tablet 10 mg PO DAILY 02/01/24 09/03/25 History omeprazole 40 mg capsule,delayed 40 mg PO DAILY 02/01/24 09/03/25 History release potassium bicarbonate-citric acid 25 meq PO BID 02/01/24 09/03/25 History 25 mEq effervescent tablet (Klor-Con/EF) prednisolone acetate 1 % eye 1 drp ophthalmic (eye) Q6H PRN 02/01/24 09/03/25 History drops,suspension IRISTIS simvastatin 20 mg tablet 20 mg PO DAILY 02/01/24 09/03/25 History tamsulosin 0.4 mg capsule 0.4 mg PO BID 02/01/24 09/03/25 History tramadol 50 mg tablet 50 mg PO BID PRN pain 02/01/24 09/03/25 History carboxymethylcellulose sodium 1 % 2 drp ophthalmic (eye) DAILY PRN 02/02/24 09/03/25 History eye liquid gel drops (Refresh dry eye(s) Liquigel) leucovorin calcium 5 mg tablet 5 mg PO QWEEK 02/02/24 09/03/25 History methylprednisolone 4 mg tablets in 4 mg PO DAILY PRN flare 02/02/24 09/03/25 History a dose pack (Medrol (Nicolas)) acetaminophen 500 mg capsule 1,000 mg PO TID PRN pain 09/06/24 09/03/25 History meloxicam 15 mg tablet 15 mg PO DAILY 09/06/24 09/03/25 History budesonide-formoterol HFA 80 2 inh inhalation Q12H 06/07/25 09/03/25 History mcg-4.5 mcg/actuation aerosol inhaler dutasteride 0.5 mg capsule 0.5 mg PO DAILY 06/07/25 09/03/25 History fluticasone propionate 50 1 spray intranasal DAILY PRN nasal 06/07/25 09/03/25 History mcg/actuation nasal congestion spray,suspension (24 Hour Allergy Relief) gabapentin 100 mg capsule 100 mg PO TID 06/07/25 09/03/25 History primidone 50 mg tablet 50 mg PO Q8H 06/07/25 09/03/25 History Allergies Allergy/AdvReac Type Severity Reaction Status Date / Time oxycodone Allergy Severe Hallucinati Verified 09/03/25 11:13 ng cephalexin Allergy Unknown Unknown Verified 09/03/25 11:13 Sulfa (Sulfonamide Allergy Unknown Rash Verified 09/03/25 11:13 Antibiotics) aspirin (From Bufferin) Allergy Unknown Verified 09/03/25 11:13 calcium carbonate (From Allergy Unknown Verified 09/03/25 11:13 Bufferin) magnesium (From Bufferin) Allergy Unknown Verified 09/03/25 11:13 Exam Narrative Exam Narrative: Constitutional: Awake, alert, comfortable, well-appearing, nontoxic, interactive, vital signs as charted Head: Normocephalic, atraumatic Neck: Supple, normal appearance, normal range of motion, no meningeal signs, no lymphadenopathy Respiratory: No respiratory distress, breath sounds clear Cardiovascular: Regular rate and rhythm, strong and regular heart tones Abdomen: Nontender, normal bowel sounds, soft, no CVA tenderness Musculoskeletal: Steady antalgic gait, utilizes a cane, no swelling or edema Skin: No rashes or induration, no lesions, only visible skin inspected Neuro: No neurological deficits, normal sensation Psychiatric: Oriented ?3, normal affect Assessment and Plan Assessment and Plan (1) Benign prostatic hyperplasia with lower urinary tract symptoms: Plan Cystoscopy, TURP scheduled with Dr. Iglesias September 12, 2025.
[2025-09-03 11:36] LABS: Hematocrit 45.3 % (42.0-54.0); Hemoglobin 15.7 g/dL (14.0-18.0); Immature Granulocytes Abs Auto 0.03 10^3/uL (0.00-0.03); Immature Granulocytes Pct Auto 0.5 % (0.0-0.5); Lymphocytes Absolute Auto 1.0 10^3/uL (1.2-3.8); Mean Corpuscular HGB Conc 34.7 g/dL (29.9-35.2); Mean Corpuscular Hemoglobin 30.8 pg (25.9-34.0); Mean Corpuscular Volume 89.0 fL (80.0-94.0); Platelet Count 199 10^3/uL (150-450); Red Blood Count 5.09 10^6/uL (4.70-6.10); White Blood Count 5.9 10^3/uL (4.0-11.0)
[2025-09-03 11:48] LABS: Anion Gap 14.3; Blood Urea Nitrogen 28.0 mg/dL (7.0-18.0); Calcium 8.5 mg/dL (8.5-10.1); Carbon Dioxide 22.7 mmol/L (21.0-32.0); Chloride 108 mmol/L (98-107); Estimated GFR (African America >60 (>=60 mL/min/1.73m^2); Estimated GFR (Non-African Ame >60 (>=60 mL/min/1.73m^2); Glucose 98 mg/dL (74-106); Potassium 4.0 mmol/L (3.5-5.1); Sodium 141 mmol/L (136-145)
[2025-09-03 11:53] LABS: INR 0.98; Partial Thromboplastin Time 29.3 sec (22.3-36.2); Prothrombin Time 10.4 sec (9.0-11.6)
== END 2025-09-03 10:40 | disposition home or self-care (01) ==
LOC: PST 10:40
PROVIDERS: PCP Family Medicine; Visit Provider Urology
DX: Z01.812 Encounter for preprocedural laboratory examination (principal); Z01.818 Encounter for other preprocedural examination; N40.1 Benign prostatic hyperplasia with lower urinary tract symptoms
CPT/HCPCS: 36415; 80048; 85025; 85610; 85730; G0463

== ENCOUNTER 2025-09-12 08:48 | Day surgery (SDC) | payer MEDICARE, SELFPAY ==
[2025-09-03 11:28] VITALS: BP 127/77; PULSE 65; TEMP 36.2; O2SAT 96; BMI 34.0
[2025-09-12] VITALS (15 sets, daily range): BP systolic 112–158; BP diastolic 69–84; PULSE 60–73; TEMP 36.3–36.9; O2SAT 92–98; BMI 33.3; BMI 34.3
--- OUTSIDE RECORDS SUMMARY | 2025-09-12 08:51 | XMS_ITS | Clinical Summary ---
Author Organization [facility] Address [address] [place] [address] Care Team Providers [employer] Director Name Role Phone Arsenio Loera MD Unavailable Carlos Eden DO Unavailable [phone] Sascha Larsen MD Primary Care Provider [phone] Allergies Active AllergyReactionsCriticalityNoted DateCommentsAspirin Buf(Fbujkj-Mcuhyj-Jbx)10/13/2015 Other Reaction(s): Other (See Comments), Unknown Abdominal pain Calcium CarbonateGI fwfeglhlreb48/17/2493Rwtkiwsfqk49/05/2018 Other Reaction(s): Unknown, Unknown, Unknown Reaction QafqylezpdpcolDntkwxk11/30/2014MagnesiumGI ovybiijiogs83/17/2023Oxycodone Bcijwgnlnxpzdv52/05/2018 Other Reaction(s): Hallucinating, Mental Status Change, Unknown Sulfa BlhwjaabyijLaqxUnj47/30/2014 Other Reaction(s): Other (See Comments), Unknown Medications MedicationSigDispense QuantityRefillsLast FilledStart DateEnd DateStatus acetaminophen (Tylenol) 500 MG tablet Take by mouth05/09/2023ctive budesonide (Rhinocort AQ) 32 MCG/ACT nasal spray 62,500 spraysActive colchicine 0.6 MG tablet 12/19/2023ctive folic acid (Folvite) 1 MG tablet folic acid 1 mg rpurjw9105/09/2023ctive hydroxychloroquine (Plaquenil) 200 MG tablet hydroxychloroquine 200 mg tablet TAKE 1 TABLET BY MOUTH TWICE A DAY05/09/2023ctive leucovorin (Wellcovorin) 5 MG tablet Take by mouth. Take with a full glass of water.Active traMADol (Ultram) 50 MG tablet Take by mouthActive montelukast (Singulair) 10 MG tablet Take by mouthActive simvastatin (Zocor) 20 MG tablet Take 20 mg by mouth at bedtimeActive potassium bicarbonate (K-Lyte) 25 MEQ effervescent tablet Take by mouthActive methotrexate (Xatmep) 2.5 MG/ML oral solution Take 2.5 mg by mouthActive tamsulosin (Flomax) 0.4 MG 24 hr capsule Take 0.4 mg by mouth Daily04/15/2024ctive nabumetone (Relafen) 750 MG tablet Take 750 mg by mouth06/09/2024ctive prednisoLONE acetate (Pred-Forte) 1 % ophthalmic suspension 08/22/2023ctive omeprazole (PriLOSEC) [address] capsule 10/11/2024ctive Methotrexate Sodium (methotrexate PF) 50 MG/2ML syringe 10/08/2024ctive meloxicam (Mobic) 15 MG tablet 08/29/2024ctive lisinopril-hydroCHLOROthiazide 20-12.5 MG tablet Take 1 tablet by mouth in the morning.08/29/2024ctive leflunomide (Arava) 10 MG tablet 07/23/2024ctive dexAMETHasone (Decadron) 2 MG tablet Indications:Piriformis syndrome of right sideTake 1 tablet by mouth once daily for 7 days. 7 tablet 5Active Additional Information Patient not taking.Reported on 07/17/2025 primidone (Mysoline) 50 MG tablet Indications:Intention tremorTake 1 tablet (50 mg) by mouth Daily AND 3 tablets (150 mg) at bedtime. 360 tablet /ctive aspirin 81 MG EC tablet Take 81 mg by mouth DailyActive fluticasone (Flonase) 50 MCG/ACT nasal spray Administer 1 spray into each nostril Daily Shake gently. Before first use, prime pump. After use, clean tip and replace cap.Active Fexofenadine-Pseudoephedrine (CORI-D 24 HOUR PO) Take 1 tablet by mouth Daily as neededActive dutasteride (Avodart) 0.5 MG capsule Take 0.5 mg by mouth DailyActive gabapentin (Neurontin) 100 MG capsule Indications:Intention tremorTake 1 capsule (100 mg) by mouth in the morning and 1 capsule (100 mg) in the evening and 1 capsule(100 mg) before bedtime. 270 capsule 306///6Active methylPREDNISolone (Medrol Dospak) 4 MG tablets Indications:Tenosynovitis of right lower legTAKE BY MOUTH INSTRUCTED - PER PACKAGE INSTRUCTIONS 21 tablet 5Active Active Problems ProblemNoted DateDiagnosed QbqmRreqz38/25/2024Osteoarthritis of right hip 10/15/2024ight hip pain10/15/2024Shortness of ghmxna7310/15/2024Tremor of right hand10/15/2024Intention gizegx8310/15/2024KI (acute kidney injury)05/28/2024 Arthritis of facet joint of cervical spine05/28/2024rthritis of lumbosacral spine05/28/2024alculus of lower third of jlkzeg4205/28/2024ervical spondylosis with ubfbrsbvmu02/08/2024Stenosis, cervical spine05/28/2024hronic neck pain 05/28/2024hronic pain05/28/2024left palate and cleft lip ([facility])05/28/2024 Compression of right ulnar nerve at multiple bjadzm4005/28/2024DD (degenerative disc disease), icobpy2205/28/2024ecreased hearing of both ears05/28/2024ysphagia 05/28/2024Eye ntrtwg5705/28/2024Lumbar yzmqciecdrbzi05/08/2024History of kidney rqalds8505/28/20242756Wgfbkxjuvkiwzf24/08/7522Htynye44/08/2158Evlqabjcaebt11/08/2024 Lumbosacral stenosis with neurogenic owyyjemklvxv78/08/2024onnective tissue olyobsa4605/28/20240577Thgku28/08/2024heumatoid tqnmyywqa37/08/2024Osteoporosis 05/28/2024iriformis lnyuwwgq21/08/2024rostate cancer efxdmukir17/08/2024enal colic on left side05/28/2024Spondylolisthesis of lumbar cmalzb7105/28/2024Thyroid mass of unclear celsougt60/08/2024Ulnar neuropathy at elbow of right upper asupkicyz66/08/2024PH (benign prostatic hyperplasia)05/28/2024Gross hematuria 12/14/20236587Wqbuflqxjekknw11/24/2024Kidney sdgmik9212/14/2023lass 1 obesity due to excess calories with serious comorbidity and body mass index (BMI) of 33.0 to 33.9 in adult04/15/2023left palate ([facility])09/29/2022luster headache 09/29/2022Hearing loss09/29/2022ntiphospholipid syndrome ([facility])09/29/2022 Luo's hcujhuhgsuxxq15/09/2022steoarthritis of knee09/29/2022arpal tunnel ctfigkak63/12/2018Allergic yszssgva59/07/2017Essential pnhlafskpvwc05/06/2017 Actinic csaeiwqdq25/25/2017Conjunctival intraepithelial hmfhnymu00/23/2015 Glenoid labrum tear11/21/2008Rotator cuff syndrome of right zhsutpix50/01/2009 Traumatic rupture of biceps vgtyin6111/21/2008 Encounters DateTypeDepartmentCare VgdhZjgevqnxgtt55/09/2025Telephone [facility] [place] [facility] [address] [place] [phone] Susan Multani MA 08/26/2025Orders Only [facility] [place] [facility] [address] [place] [address] Zara John MA 08/23/2025Telephone [facility] [place] [facility] [address] [place] [address] Susan Multani MA 08/19/2025 12:00 PM EDTAncillary Procedure [facility] [place] [facility] [address] [place] [phone] Syncope, unspecified syncope type08/19/2025 11:00 AM EDTProcedure Visit [facility] [address] [place] [address] Neuropathy; Lumbosacral stenosis with neurogenic kgbamkjwnfoe17/29/8190Fzqjhr99/04/2025 Orders Only [facility] [place] [facility] [address] [facility] [address] [place] [address] Phoebe Connell, COOKER SYRUP 07/17/2025 2:00 PM EDTOffice Visit [facility] [place] [facility] [address] [facility] [address] [place] [address] Phoebe Connell, COOKER SYRUP Syncope, unspecified syncope type (Primary Dx); Neuropathy; Hypersomnia with sleep apnea; Rheumatoid arthritis, involving unspecified site, unspecified whether rheumatoid factor present (HCC); Intention tremor; Cervicogenic watubeki32/27/2025[facility] [address] [facility] [address] [place] [address] Junito Taylor MD Xipwhsdjogz20/27/0338Rkwbau51/07/2025 11:50 AM EDTProcedure Visit [facility] [address] [facility] [address] [place] [phone] Kali Terrazas DPEduard Tenosynovitis of right lower leg (Primary Dx); Pain due to onychomycosis of toenails of both feet; Xerosis cutis; Su splint, right, initial encounter; Acquired inequality of length of right lower dpbjancle80/07/2025amboo flowsheet [facility] [address] [facility] [address] [place] [address] Kali Terrazas DPEduard 06/27/20252374Apqlss05/28/2025[facility]phone [facility] [address] [facility] [address] [place] [address] Susan Multani MA Otherfrom Last 3 Months Immunizations ImmunizationAdministration DatesNext DueABRYSVO - Respiratory syncytial virus (RSV), vaccine, bivalent, protein subunit RSV prefusion F, diluent reconstituted, 0.5 mL, PF08/23/2023Hep B, Adolescent or Vhvxbcipm89/31/1990, 10/04/1990Influenza, High Dose Seasonal, Preservative Free11/03/2024Influenza, High-dose Seasonal, Quadrivalent, Preservative Free08/23/2023,09/07/2022 Influenza, Cccrqfxayxd21/15/2023,09/09/2016Influenza, injectable, MDCK, preservative free, ctgsplblpmej89/02/2020,09/05/2018,07/28/2017Influenza, injectable, MDCK, rwuwrnkabmih26/30/2019Influenza, injectable, quadrivalent, preservative free1Pneumococcal Conjugate PCV 131Pneumococcal Conjugate PCV 2Pneumococcal Polysaccharide KWQJ4046 SARS-CoV-2, Qghfaplnqrc88/18/6212Ejrb81/30/2023,12/05/2012Zoster, Recombinant 08/26/2019,06/27/2019 Family History Medical HistoryRelationNameCommentsHeart diseaseFatherHypertensionFatherHeart diseaseMotherHypertensionMotherRelationNameStatusCommentsFatherDeceasedMother Social History Tobacco UseTypesPacks/DayYears UsedDateSmoking Tobacco: FormerCigarettes Smokeless Tobacco: Never Tobacco Cessation:Counseling Given: Yes Alcohol UseStandard Drinks/WeekCommentsNever0 (1 standard drink = 0.6 oz pure alcohol)none caffeineSex and Gender InformationValueDate RecordedSex Assigned at BirthNot on fileLegal ThpLsmq5902/02/2023 6:58 PM EDTGender IdentityNot on file Sexual OrientationNot on file Last Filed Vital Signs Vital SignReadingTime TakenCommentsBlood Ezhjfofi631/8008 1:46 PM EDT Oetdc776702/07/2025 10:07 AM EDTTemperature--Respiratory Ohse735906/27/2025 11:45 AM EDTOxygen Saturation--Inhaled Oxygen Concentration--Jlocqq303 kg (222 lb) 07/17/2025 1:46 PM YUBMspsni602.7 cm (5' 8 )07/17/2025 1:46 PM EDTBody Mass Index33.75007/17/2025 1:46 PM EDT Plan of Treatment DateTypeDepartmentCare Team (Latest Contact Info)Qjbowojbofe21/30/2025 11:50 AM EDTProcedure Visit [facility] [address] [facility] [address] [place] [address] Kali Terrazas DPM [address] [facility] [address] [place] [address] 09/30/2025 9:30 AM ESTOffice Visit [facility] [address] [facility] [address] [place] [address] Junito Taylor MD [address] [place], [place] [address] 12/18/2025 1:45 PM ESTOffice Visit [facility] [address] [place] [phone] Carlos Eden, DO [address] [place] [address] Health MaintenanceDue DateLast DoneCommentsCT Nlofrqiurlnb1957Colonoscopy 1957Colorectal Cancer Uaamsrsex1957FIT-DNA1957FIT1957 FOBT1957 5392Mqmxbdgrbzmmv1957Influenza Vaccine (#1)512/, 08/23/2023, 12/05/2022, Additional history existsPneumococcal Vaccine: 65+ Years Cxvfyjzig06/17/2024, 04/16/2022, 09/16/2016, Additional history exists Procedures Procedure NamePriorityDate/TimeAssociated DiagnosisCommentsN[facility]S AMB 2-12HRS, WHTWCAOGVIJxceyua34/13/2025 2:02 PM EDT Syncope, unspecified syncope type [facility] EMG 2 IBYMGSACBOLKoxqrvw37/29/2025 2:35 PM EDT Neuropathy RHEUMATOID XRVOYIUffdiho14/27/2025 3:14 PM EDT Rheumatoid arthritis, involving unspecified site, unspecified whether rheumatoid factor present (HCC) C-REACTIVE DEVWBODIxfrkvw00/27/2025 3:14 PM EDT Neuropathy Rheumatoid arthritis, involving unspecified site, unspecified whether rheumatoid factor present (HCC) SED RATE BY MODIFIED KOCMBQNPJDQeffarx43/27/2025 3:14 PM EDT Rheumatoid arthritis, involving unspecified site, unspecified whether rheumatoid factor present (HCC) from Last 3 Months Results * EEG 2-12HRS,CONT (09/02/2025 2:02 PM EDT) Narrative Authorizing ProviderResult TypeResult StatusFelicia C Windnagel NPNEUROLOGY ORDERABLESFinal Result * EMG 2 Extremities (08/19/2025 2:35 PM EDT) Narrative Authorizing ProviderResult TypeResult StatusFelicia C Windnagel NPNEUROLOGY ORDERABLESFinal Result * Sedimentation rate, automated (07/17/2025 3:14 PM EDT)ComponentValueRef Range Test MethodAnalysis TimePerformed AtPathologist SignatureERYTHROCYTE SEDIMENTATION RATE30 - 19007/17/2025 4:57 PM [facility] Specimen (Source)Anatomical Location / LateralityCollection Method / Volume Collection TimeReceived TimeBlood (Blood)07/17/2025 3:14 PM EDT07/17/2025 3:14 PM EDT Narrative Authorizing ProviderResult TypeResult StatusFelicia C Windnagel NPLAB BLOOD ORDERABLESFinal ResultPerforming OrganizationAddressCity/State/ZIP CodePhone Number [facility] [address] [place] [address], [facility] [address] [place] [address] * Rheumatoid factor (07/17/2025 3:14 PM EDT)ComponentValueRef RangeTest Method Analysis TimePerformed AtPathologist SignatureRHEUMATOID FACTOR<10.0<14.0 07/18/2025 7:36 AM EDWOODLAND PARK HOSPITALComment: Performed at: ?? - [facility] [address] ??[id number] [employer] Construction Manager: Richy Ardon PhD, Phone: ??[phone] Specimen (Source)Anatomical Location / LateralityCollection Method / Volume Collection TimeReceived TimeOtherTopography unknown / Abaxzhq0507/17/2025 3:14 PM EDT07/17/2025 3:14 PM EDT Narrative Authorizing ProviderResult TypeResult StatusFelicia C Windnagel NPLAB BLOOD ORDERABLESFinal ResultPerforming OrganizationAddressty/State/ZIP CodePhone Number [address] [address], * C-reactive protein (07/17/2025 3:14 PM EDT)ComponentValueRef RangeTest Method Analysis TimePerformed AtPathologist SignatureC-REACTIVE PROTEIN<0.50.0 - 0.5 mg/dL07/17/2025 4:44 PM EDMed[facility] CtrSpecimen (Source) Anatomical Location / LateralityCollection Method / VolumeCollection Time Received TimeOtherTopography unknown / Iitueaa6607/17/2025 3:14 PM EDT07/17/2025 3:14 PM EDT Narrative Authorizing ProviderResult TypeResult StatusFelicia C Windnagel NPLAB BLOOD ORDERABLESFinal ResultPerforming OrganizationAddressCity/State/ZIP CodePhone Number [address] [address], [facility] [address] [place] [address] from Last 3 Months Insurance Care Teams Team MemberRelationshipSpecialtyStart DateEnd Date Sascha Larsen MD [address] [facility] [place] [address] PCP - GeneralFamily Medicine01/30/25 Arsenio Loera MD [address] [place] [address] [address] [place] [address] Referring PhysicianNeurosurgery06/13/24 Carlos Eden DO [address] [place] [address] Otolaryngology06/13/24
--- OUTSIDE RECORDS SUMMARY | 2025-09-12 08:51 | XMS_ITS | Clinical Summary ---
Author Organization [facility] Address [address] [place] [address] Phone Care Team Providers Care Raw Products Director Name Role Phone Suzie Saschaabelardo Kwokard Primary Care Provider Zac Iglesias MD Unavailable Allergies Active AllergyReactionsCriticalityNoted DateCommentsAspirin,Buffd-Calcium Carb-MagNausea/geaflrgw89/31/0459TucxwbbiqsRuejdfq59/31/2025Oxycodone Akhoofhyyfgibj19/31/2025Sulfa (Sulfonamide Antibiotics)ZatdJqa3406/20/2025 Medications MedicationSigDispense QuantityRefillsLast FilledStart DateEnd DateStatus acetaminophen (Tylenol) 500 mg tablet Take 2 tablets (1,000 mg) by mouth twice a day.Active leflunomide (Arava) 10 mg tablet Take 1 tablet (10 mg) by mouth once daily.07/23/2024ctive methotrexate sodium/PF (methotrexate, PF,) 25 mg/mL 1 mL (25 mg) 1 (one) time per week.10/08/2024ctive leucovorin (Wellcovorin) 5 mg tablet Take 1 tablet (5 mg total) by mouth once daily. Take with a full glass of water. Active omeprazole (PriLOSEC) [address] capsule Take 1 capsule (40 mg) by mouth once daily in the morning. Take before meals. 10/11/2024ctive folic acid (Folvite) 1 mg tablet Take 1 tablet (1 mg) by mouth once daily.Active traMADol (Ultram) 50 mg tablet Take 1 tablet (50 mg) by mouth 2 times a day.Active hydroxychloroquine (Plaquenil) 200 mg tablet Take 1 tablet (200 mg) by mouth 2 times a day.Active aspirin 81 mg EC tablet Take 1 tablet (81 mg) by mouth once daily.Active prednisoLONE acetate (Pred-Forte) 1 % ophthalmic suspension 1 drop 4 times a day.Active montelukast (Singulair) 10 mg tablet Take 1 tablet (10 mg) by mouth once daily at bedtime.Active simvastatin (Zocor) 20 mg tablet Take 1 tablet (20 mg) by mouth once daily at bedtime.Active lisinopril 20 mg tablet Take 1 tablet (20 mg) by mouth once daily.Active hydroCHLOROthiazide (Microzide) 12.5 mg tablet Take 1 tablet (12.5 mg) by mouth once daily.Active fluticasone (Veramyst) 27.5 mcg/actuation nasal spray Administer 2 sprays into each nostril once daily.Active lubricating eye drops ophthalmic solution 1 drop if needed for dry eyes.Active eyelid cleanser combination 3 (OCUSOFT LID SCRUB PLUS TOP) Apply topically.Active fexofenadine-pseudoephedrine (Seema-D) 60-120 mg 12 hr tablet Take 1 tablet by mouth 2 times a day. Do not crush, chew, or split.Active methylPREDNISolone (Medrol) 4 mg tablet Take 1 tablet (4 mg) by mouth once daily.Active potassium bicarbonate (K-Lyte) 25 mEq effervescent tablet Take 1 tablet (25 mEq) by mouth 2 times a day.Active tamsulosin (Flomax) 0.4 mg 24 hr capsule Take 1 capsule (0.4 mg) by mouth once daily. Do not crush, chew, or split.Active dutasteride (Avodart) 0.5 mg capsule Take 1 capsule (0.5 mg) by mouth once daily.Active meloxicam (Mobic) 15 mg tablet Take 1 tablet (15 mg) by mouth once daily.Active gabapentin (Neurontin) 100 mg capsule Take 1 capsule (100 mg) by mouth 3 times a day.Active budesonide-formoterol (Symbicort) 80-4.5 mcg/actuation inhaler Inhale 2 puffs 2 times a day. Rinse mouth with water after use to reduce aftertaste and incidence of candidiasis. Do not swallow.Active Active Problems ProblemNoted DateDiagnosed DatePreop cardiovascular exam06/20/2025Mixed gzviwsykpdisvj66/31/2025Essential (primary) ofyglqwugcbg12/31/2025Former smoker 06/20/2025MI 34.0-34.9,adult06/20/20257835Nlymuka20/31/2025Lupus (systemic lupus erythematosus)06/20/2025 Encounters DateTypeDepartmentCare PbypQndaxcxhebm94/07/2025Telephone [address] [address] Molly Pearson LPN TURP08/07/2025Scanned Document [facility] [address] [place] [phone] Scanning, Generic Provider 08/07/2025Results Follow-Up [address] [address] Alfonso Trujillo, Holter Or Event Cardiac Hkdhdex2407/24/2025Orders Only [facility] [address] [place] [address] Kaitlyn Troy MD 06/28/2025Results Follow-Up [address] [address] Alfonso Trujillo, Carotid Artery Duplex Svcqbjtrd26/07/2025Telephone [address] [address] Valeria Adan RN 06/26/2025Orders Only [facility] [address] [place] [address] Alfonso Trujillo DO 06/25/2025 8:00 AM EDTAncillary Procedure [address] [address] Syncope, unspecified syncope type; PVC (premature ventricular contraction)06/25/2025Scanned Document [facility] [address] [place] [phone] Scanning, Generic Provider 06/25/20259265Ujltxj09/31/2025 9:20 AM EDTOffice Visit [address] [place] [address] Alfonso Trujillo, Preop cardiovascular exam; Syncope, unspecified syncope type; Mixed hyperlipidemia; Essential (primary) hypertension; PVC (premature ventricular contraction); Systemic lupus erythematosus, unspecified SLE type, unspecified organ involvement status (Multi); BMI 34.0-34.9,adult; Former uqpthi0206/20/2025Telephone [facility] [address] [facility] [address] [place] [address] Alfonso Trujillo DO 06/20/20257997Jhggbx94/25/2025Telephone [address] [place] [address] Leah Benavidez LPN Pre-op Clearancefrom Last 3 Months Family History Medical HistoryRelationNameCommentsHeart attackFatherBlood clotMotherHeart diseaseMotherRelationNameStatusCommentsFatherMother Social History Tobacco UseTypesPacks/DayYears UsedDateSmoking Tobacco: FormerCigarettes Smokeless Tobacco: NeverAlcohol UseStandard Drinks/WeekCommentsNever0 (1 standard drink = 0.6 oz pure alcohol)Sex and Gender InformationValueDate RecordedSex Assigned at BirthNot on fileLegal QikBiqp0203/29/2023 3:52 PM EDT Gender IdentityNot on fileSexual OrientationNot on file Last Filed Vital Signs Vital SignReadingTime TakenCommentsBlood Mbcxuopw234/7406/20/2025 9:38 AM EDT Ibhqz536906/20/2025 9:37 AM EDTTemperature--Respiratory Rate--Oxygen Saturation-- Inhaled Oxygen Concentration--Snqjdd547 kg (221 lb 12.8 oz)06/20/2025 9:37 AM IDVBhnguf435.2 cm (5' 7 )06/20/2025 9:37 AM EDTBody Mass Index34.7406/20/2025 9:37 AM EDT Plan of Treatment DateTypeDepartmentCare Team (Latest Contact Info)Jnisjtlfekb81/28/2025 8:00 AM EDTOffice Visit [facility] [address] [facility] [address] [place] [address] Germaine Mas, BOAT CARPENTER-CERTIFIED PROFESSIONAL ERGONOMIST [address] [facility] [address] [place] [address] Health MaintenanceDue DateLast DoneCommentsCT Jixegivldxur1957FIT-DNA (Cologuard)1957FIT1957Lipid Panel1957Medicare Annual Wellness Visit (AWV)1955 5438Hvqzpiwxligzf1957MMR Vaccines (1 of 1 - Standard series)1958Diabetes Mtvrytmxl29/31/1975Hepatitis C Ofvsmjaxx77/31/1975PSA Prostate Cancer Giuetieok02/31/2007bdominal Aortic Aneurysm (AAA) Screening 2022Influenza Vaccine (#1), 08/23/2023, 12/05/2022, Additional history existsCOVID-19 Vaccine ( season)2025 03/06/2024, 08/23/2023, 10/08/2022, Additional history existsColonoscopy Colorectal Cancer Zjsjobayl50/26/2027DTaP/Tdap/Td Vaccines (3 - Td or Tdap), 12/05/2012Hepatitis B VaccinesAged Out 11/20/1990, 10/04/1990No longer eligible based on patient's age to complete this topicZoster UirggvvtAmixrrbfs37/06/2019, 06/27/2019RSV High Risk: (Elderly (60+) or Population)Acydevsiw79/03/2023Pneumococcal VaccineCompleted 09/06/2024, 04/16/2022, 09/16/2016, Additional history existsHIB VaccinesAged OutNo longer eligible based on patient's age to complete this topicHPV Vaccines Aged OutNo longer eligible based on patient's age to complete this topic Hepatitis A VaccinesAged OutNo longer eligible based on patient's age to complete this topicIPV VaccinesAged OutNo longer eligible based on patient's age to complete this topicMeningococcal VaccineAged OutNo longer eligible based on patient's age to complete this topicRotavirus VaccinesAged OutNo longer eligible based on patient's age to complete this topic Procedures Procedure NamePriorityDate/TimeAssociated DiagnosisCommentsTILT TABLE07/24/2025 11:01 AM EDT CAROTID ARTERY DUPLEX PNMAQXSLM71/06/2025 8:45 AM EDT CARDIAC EVENT MONITOR CONTINUOUS UP TO 30 DAYS - HOOK-UP, PHYSICIAN READRoutine 06/25/2025 8:09 AM EDT Syncope, unspecified syncope type PVC (premature ventricular contraction) ECG 12-WUMHTcsubaw05/31/2025 10:23 AM EDT Preop cardiovascular exam Syncope, unspecified syncope type from Last 3 Months Results * Tilt table (07/24/2025 11:01 AM EDT)Specimen (Source)Anatomical Location / LateralityCollection Method / VolumeCollection TimeReceived Time07/24/2025 11:01 AM EDT [facility] - 07/25/2025 9:48 AM EDT [facility] [place] ?[address] ? [place] [address] ? Cardiology Report ? Signed ? Patient: Marvin,Valentin R ?MR#: [id number] ?? 31 ? : 1955 ?Acct:[id number] ? Age/Sex: 70 / M ?ADM Date: 07/24/ ? Loc: EL ?Room: ?Type: DEP CLI ?? Attending Dr: Melanie Trujillo DO ?? Copies to: Kaitlyn Troy MD ? Ordering Provider: Kaitlyn Troy MD ?? Date of Service: 07/24/25 ?? CA/CA tilt table test: syncope/near syncope ? REFERRING PHYSICIAN: ??Dr. Trujillo ? PROCEDURE: ??Tilt table test. ? INDICATION: ??Recurrent episodes of lightheadedness, dizziness, and syncope. ? PROCEDURE: The patient underwent standard head-up to table test. The patient received a total of 250 mL of normal saline. Then, continuous blood pressure, ultrasound, and heart rate monitoring was established. The patient was tilted to the upright position for 30 minutes, during which, he demonstrated appropriate and physiologic hemodynamic response to tilt maneuver. ??Then sublingual nitroglycerin was administered and the patient was monitored for an additional 15 minutes, during which also he demonstrated appropriate and hemodynamic response to nitroglycerin administration. ??No symptoms were recreated. ??His monitoring strips showed occasional PVCs throughout the procedure. ? CONCLUSION: ?? 1. Negative tilt table test. ?? 2. Physiologic hemodynamic response to tilt maneuver and nitroglycerin administration. ?? 3. Few PVCs noted throughout the test. ? Transcribed By: ? NTS ?07/25/25 0726 ? Dictated By: ?Kaitlyn Troy MD ?07/24/25 1101 ? Signed By: <Electronically signed by MD Kaitlyn Troy> ?07/25/25 0948 Authorizing ProviderResult TypeResult StatusMobrigitte Troy [facility] [place] CARDIAC SERVICES PROCEDURESFinal ResultPerforming OrganizationAddressCity/State/ZIP Code Phone Number [facility] [place] [address], [place] * Carotid Artery Duplex Ultrasoun (06/26/2025 8:45 AM EDT)Anatomical Region LateralityModalityUltrasoundSpecimen (Source)Anatomical Location / Laterality Collection Method / VolumeCollection TimeReceived Time06/26/2025 8:45 AM EDT Narrative 06/26/2025 8:49 AM EDT [facility] ?[facility] [place] ?[address] ? [place], [place] [address] ? Ultrasound Report ? Signed ? Patient: Valentin Wong ?MR#: [id number] ?? 31 ? : 1955 ?Acct:[id number] ? Age/Sex: 70 / M ?ADM Date: 06/25/25 ? Loc: UL ?Room: ?Type: DEP CLI ?? Attending Dr: Melanie Trujillo DO ? Ordering Provider: Melanie Trujillo, DO ?? Date of Service: 06/25/25 ?? US/US carotid doppler BI: R55 ? Copies to: Melanie Trujillo, DO ? CAROTID DUPLEX ? INDICATION: ??Syncope ? PROCEDURE: ??Color-flow duplex scanning is used to interrogate the extracranial carotid arterial system, as well as both vertebral arteries. ??The proximal right internal carotid artery shows a highest peak systolic velocity of 79.5 cm/s with an end-diastolic velocity of 13.7 cm/s . ??The mid internal carotid artery measures 91.3 cm/s peak systolic with an end-diastolic velocity of 20.5 cm/s . ??The distal segment measures 140 cm/s ??peak systolic with an end diastolic velocity of 33.8 cm/s . The velocities of the right common carotid artery are 137 cm/s ??peak systolic and 22 cm/s end- diastolic proximally and 114 cm/s ??peak systolic and 21.1 cm/s end-diastolic distally. ??The peak systolic velocity ratio of the internal to the common carotid artery is 1.02 . ??The right external carotid artery measures 133 cm/s ??peak systolic. ??The right vertebral artery is patent at 60.9 cm/s peak systolic and with antegrade flow. ? The proximal left internal carotid artery shows a highest peak systolic velocity of 75 cm/s ??with an end-diastolic velocity of 18.2 cm/s ??. ??The mid internal carotid artery measures 94.6 cm/s ??peak systolic with an end-diastolic velocity of 28 cm/s ??. ??The distal segment measures 127 cm/s ??peak systolic with an end diastolic velocity of 36.4 cm/s ??. The velocities of the left common carotid artery are 155 cm/s ??peak systolic and 22.3 cm/s ??end-diastolic proximally and 133 cm/s peak systolic and 23.1 cm/s ??end-diastolic distally. ??The peak systolic velocity ratio of the internalto the common carotid artery is 0.82 . ??The left external carotid artery measures 124 cm/s ??peak systolic. ??The left vertebral artery is patent at 78.3 cm/s peak systolic with antegrade flow. ? / carotid doppler BI ?? IMPRESSION: ? NO HEMODYNAMICALLY SIGNIFICANT STENOSIS OF EITHER EXTRACRANIAL INTERNAL CAROTID ARTERY. ??BOTH VERTEBRAL ARTERIES ARE PATENT WITH ANTEGRADE FLOW. ? Impression dictated by: Audie Griffin M.D. ??06/26/2025 8:47 AM ? Dictation Location: [place] [address] ? Tech: Мария Graysonce ? Transcribed By: ? PWS ?06/26/25 0847 ? Dictated By: ?Audie Griffin MD ?06/26/25 0845 ? Signed By: <Electronically signed by MD Audie Griffin in OV> ? 06/26/25 0847 Authorizing ProviderResult TypeResult StatusWisabinam S Ronnie DOCV VASCULAR PROCEDURESFinal Result * CARDIAC EVENT MONITOR CONTINUOUS UP TO 30 DAYS - HOOK-UP, PHYSICIAN READ (06/25/2025 8:09 AM EDT)Specimen (Source)Anatomical Location / Laterality Collection Method / VolumeCollection TimeReceived Time Narrative [facility] - 08/05/2025 9:33 AM EDT This is a 30-day event monitor Ordering physician Dr. Trujillo Indication syncope Procedure patient underwent event monitor. ??Baseline rhythm is sinus averaging between 65-93 beats per minutes. ??Patient send total of 8 to transmission with complaint of palpitation or arrhythmia strips demonstrate sinus rhythm with occasional PVCs. ??On 824 the patient had syncopal episode the rhythm was sinus with with PVCs Conclusion 1. ??Baseline rhythm is normal sinus rhythm 2. ??Palpitations seem coincided with PVCs 3. ??Syncopal episode occurred during sinus rhythm with PVC's 4. ??No bradycardic episode Authorizing ProviderResult TypeResult César S Ronnie DOCV CARDIAC SERVICES PROCEDURESFinal ResultPerforming OrganizationAddressCity/State/ZIP Code Phone Number [facility] * ECG 12 Lead (06/20/2025 10:23 AM EDT)Specimen (Source)Anatomical Location / LateralityCollection Method / VolumeCollection TimeReceived Time Narrative Alfonso Trujillo DO - 06/20/2025 10:23 AM EDT Normal sinus rhythm, low voltage QRS, nonspecific ST-T wave abnormality, PVCs, abnormal ECG Authorizing ProviderResult TypeResult StatusWisabinam S Ronnie DOECG ORDERABLES Final Result from Last 3 Months Insurance * Guarantor: Valentin WongAcconery TypeRelation to PatientDate of BirthPhone Billing AddressPersonal/HdhllqMrmf00/ [address] [place] [address] MemberSubscriberPlan / Payer (Effective 2024-Present)Name:Valentin Wong Relation to Subscriber:SelfName:Valentin Wong Payer ID:Not on file Group ID:Not on file Type:Not on file Address: [address] Care Teams Team MemberRelationshipSpecialtyStart DateEnd Sascha Boateng DO [facility] - General03/30/23 Zac Iglesias MD [address] [facility] [place] [address] Referring PhysicianUrology08/07/25
--- OUTSIDE RECORDS SUMMARY | 2025-09-12 08:51 | XMS_ITS | Encounter Summary ---
Author Organization [facility] Address [address] [place] [address] Phone Care Team Providers Care Risk Management Analyst Name Role Phone SuzieSascha Primary Care Provider Zac Iglesias MD Unavailable [phone] Reason for Visit * ReasonOnset YxzjJtopmxjjUCGQ48/07/2025 Encounter Details DateTypeDepartmentCare Team (Latest Contact Info)Lgovterouaq59/07/2025Telephone [facility] [address] [address] Molly Pearson LPN TURP Social History Tobacco UseTypesPacks/DayYears UsedDateSmoking Tobacco: FormerCigarettes Smokeless Tobacco: NeverAlcohol UseStandard Drinks/WeekCommentsNever0 (1 standard drink = 0.6 oz pure alcohol)Sex and Gender InformationValueDate RecordedSex Assigned at BirthNot on fileLegal IogFxgs0603/29/2023 3:52 PM EDT Gender IdentityNot on fileSexual OrientationNot on filedocumented as of this encounter Miscellaneous Notes * Telephone Encounter - Izabela Bruce LPN - 09/06/2025 1:[address] Rodriguez's office and left VM with Sandy with clearance and ASA hold instructions and that it was faxed as well. Phoned patient with update. Verbalized understanding. * Telephone Encounter - Molly Pearson LPN - 08/27/2025 11:[address] Iglesias office phoned requesting POC and request to hold aspirin x 7 days prior to TURP, under general anesthesia. Scheduled for 09/12/25. To Dr. Alfonso Trujillo DO for review documented in this encounter Plan of Treatment DateTypeDepartmentCare Team (Latest Contact Info)Anvcasrurkq59/28/2025 8:00 AM EDTOffice Visit [facility] [address] [facility] [address] [place] [phone] Germaine Mas, UPHOLSTERY DEPARTMENT SUPERVISOR-WINDOWS APPLICATION PACKAGER [address] [facility] [address] [place] [address] documented as of this encounter Visit Diagnoses Not on filedocumented in this encounter Care Teams Team MemberRelationshipSpecialtyStart DateEnd Date Sascha Larsen DO PCP - General03/30/23 Zac Iglesias MD [address] [facility] [place] [address] Referring PhysicianUrology08/07/25documented as of this encounter
--- OUTSIDE RECORDS SUMMARY | 2025-09-12 08:51 | XMS_ITS | Clinical Summary ---
Author Organization [facility] Address [address] [place], [place] [address] Care Team Providers Care Drafting Supervisor Name Role Phone Unavailable Primary Care Provider Unavailabl e Allergies Active AllergyReactionsCriticalityNoted DateCommentsAspirin, BufferedGI Upset 04/25/20183494AczgohujyrXljumjd38/05/2018OxycodoneMental Status Wqeiel5104/25/2018 Sulfa (Sulfonamide Antibiotics)Rash04/25/2018 Medications MedicationSigDispense QuantityRefillsLast FilledStart DateEnd DateStatus aspirin 325 mg tablet Take 325 mg by mouth once daily.Active acetaminophen (TYLENOL) 500 mg tablet Take 1,000 mg by mouth twice daily.Active leflunomide (ARAVA) 10 mg tablet Take 10 mg by mouth once daily.Active hydroxychloroquine (PLAQUENIL) 200 mg tablet Take by mouth twice daily.Active methotrexate (XATMEP) 2.5 mg/mL oral liquid Take 2.5 mg by mouth every Tuesday.Active nabumetone (RELAFEN) 750 mg tablet Take 750 mg by mouth twice daily.Active leucovorin (LEUCOVORIN) 5 mg tablet Take 5 mg by mouth.Active Omeprazole Magnesium 20 mg cpDR Take by mouth.Active OMEPRAZOLE ORAL Take 20 mg by mouth twice daily at 6AM and 9PM.Active folic acid 1 mg tablet Take 1 mg by mouth once daily.Active montelukast (SINGULAIR) 10 mg tablet Take 10 mg by mouth once daily.Active simvastatin (ZOCOR) 20 mg tablet Take 10 mg by mouth daily at bedtime.Active lisinopril (ZESTRIL, PRINIVIL) 10 mg tablet Take 10 mg by mouth once daily.Active tamsulosin ER (FLOMAX) 0.4 mg cp24 Take 1 capsule by mouth daily at bedtime for 7 days. 7 capsule 04/25/2018Active Social History Tobacco UseTypesPacks/DayYears UsedDateSmoking Tobacco: FormerSmokeless Tobacco: NeverAlcohol UseStandard Drinks/WeekCommentsNo0 (1 standard drink = 0.6 oz pure alcohol)Sex and Gender InformationValueDate RecordedSex Assigned at BirthNot on fileLegal StxBpzq88/02/2012 8:45 AM ESTGender IdentityNot on fileSexual OrientationNot on file Last Filed Vital Signs Vital SignReadingTime TakenCommentsBlood Bwyzyvil126/7006 6:22 AM EDT Gigzj949604/25/2018 6:22 AM UDDRqrjeajowfz78.4 ??C (97.5 ??F)04/25/2018 2:51 AM EDTRespiratory Ptpe1159 6:22 AM EDTOxygen Txguahipcn80%04/25/2018 6:22 AM EDTInhaled Oxygen Concentration--Thvrxo35.3 kg (210 lb)04/25/2018 2:51 AM EDT Zfxudx525.7 cm (5' 8 )04/25/2018 2:51 AM EDTBody Mass Index31.9304/25/2018 2:51 AM EDT Plan of Treatment Not on file
--- OUTSIDE RECORDS SUMMARY | 2025-09-12 08:51 | XMS_ITS | Clinical Summary ---
Author Organization [facility] Address [address], [address] [place] [address] Care Team Providers Care Inventory Manager Name Role Phone CynthiaSascha norton Primary Care Provider [phone] Allergies Active AllergyReactionsCriticalityNoted DateCommentsAspirin Buf(Ivaegu-Weqfjh-Dkw)Other (See Comments)10/13/2015 Abdominal pain Zvmmwltxdgeeov59/30/2014Sulfa Usuojdeapjr12/30/2014 Medications MedicationSigDispense QuantityRefillsLast FilledStart DateEnd DateStatus Aspirin Buf,YfQzu-LuMpe-LrImf, (BUFFERED ASPIRIN) 325 MG TABS Take 325 mg by mouth DailyActive hydroxychloroquine (PLAQUENIL) 200 MG tablet Take 200 mg by mouth 2 times daily.Active folic acid (FOLVITE) 1 MG tablet Take 1 mg by mouth daily.Active methotrexate (RHEUMATREX) 1 G chemo injection Infuse intravenously once.Active methotrexate (RHEUMATREX) 25 MG/ML chemo syringe Inject 25 mg into the skin once a week.Active traMADol (ULTRAM) 50 MG tablet Take 50 mg by mouth every 6 hours as needed for Pain.Active prednisoLONE acetate (PRED FORTE) 1 % ophthalmic suspension 1 drop as needed.Active nabumetone (RELAFEN) 750 MG tablet Take 750 mg by mouth 2 times daily.Active omeprazole (PRILOSEC) 20 MG capsule Take 40 mg by mouth dailyActive leucovorin calcium (WELLCOVORIN) 5 MG tablet Take 5 mg by mouth once a weekActive montelukast (SINGULAIR) 10 MG tablet Take 10 mg by mouth nightly.Active acetaminophen (TYLENOL) 500 MG tablet Take 1,000 mg by mouth 3 times dailyActive leflunomide (ARAVA) 10 MG tablet Take 10 mg by mouth dailyActive Loratadine-Pseudoephedrine (CLARITIN-D 24 HOUR PO) Take 1 tablet by mouth DailyActive Active Problems ProblemNoted DateDiagnosed DateConjunctival intraepithelial axfymkdh89/23/2015 Resolved Problems ProblemNoted DateDiagnosed DateResolved DateConjunctival intraepithelial jcxyveul10 Social History Tobacco UseTypesPacks/DayYears UsedDateSmoking Tobacco: FormerAlcohol Use Standard Drinks/WeekCommentsNo0 (1 standard drink = 0.6 oz pure alcohol)Sex and Gender InformationValueDate RecordedSex Assigned at BirthNot on fileLegal Sex Male12/31/2012 6:01 PM ESTGender IdentityNot on fileSexual OrientationNot on file Last Filed Vital Signs Vital SignReadingTime TakenCommentsBlood Tfgdnfmb817/6610/13/2015 11:55 AM EST Jzlpq142510/13/2015 11:55 AM AUOOpwunxkssth55.6 ??C (97.9 ??F)10/13/2015 10:33 AM ESTRespiratory Onjq0188 11:55 AM ESTOxygen Hrkfobdibu59%10/13/2015 11:55 AM ESTInhaled Oxygen Concentration--Gyzgjq31.3 kg (210 lb)10/13/2015 10:33 AM IUPDctaal850.3 cm (5' 9 )10/13/2015 10:33 AM ESTBody Mass Index31.01112/13/2014 10:33 AM EST Plan of Treatment Health MaintenanceDue DateLast DoneCommentsDepression Ylowhx3804/20/1969Hepatitis C gnkxrx2304/20/19759499Tbxful87/31/2116Kemzclqagaa67/31/2002Colorectal Cancer Screen 2002FIT/FOBT: Average risk2002Fecal-DNA (Cologuard): Average risk 2002Sigmoidoscopy/CT vyvxhrbsjiow46/31/2002AAA wwqmub9604/20/2022Flu vaccine (#1)501/, 09/07/2022, 07/28/2021, Additional history exists COVID-19 Vaccine ( season), 09/23/2021, 01/26/2021espiratory Syncytial Virus (RSV) or age 60 yrs+ (1 - 1-dose 75+ series)2DTaP/Tdap/Td vaccine (3 - Td or Tdap), 12/05/2012Shingles jgcwvqeHrvjmmdou02/06/2019, 06/27/2019Pneumococcal 0-49 years NoxwmshCaigrxucroka79/27/2022, 09/16/2016, 12/05/2012Pneumococcal 50+ years PpttqzbCbqdaoubx26/27/2022, 09/16/2016, 12/05/2012Hepatitis A vaccineAged OutNo longer eligible based on patient's age to complete this topicHepatitis B vaccine Aged OutNo longer eligible based on patient's age to complete this topicHib vaccineAged OutNo longer eligible based on patient's age to complete this topic Meningococcal (ACWY) vaccineAged OutNo longer eligible based on patient's age to complete this topicMeningococcal B vaccineAged OutNo longer eligible based on patient's age to complete this topicPolio vaccineAged OutNo longer eligible based on patient's age to complete this topic Advance Directives * Full Code (Latest Code Status on File) Date ActivatedDate HneubjgqfktVjugvfhx10/23/2015 10:23 AM10/13/2015 2:37 PM * Full Code Date ActivatedDate InactivatedComments05/20/2014 4:06 PM05/20/2014 7:08 PM * Full Code Date ActivatedDate InactivatedComments05/20/2014 3:04 PM05/20/2014 4:06 PM Care Teams Team MemberRelationshipSpecialtyStart DateEnd Date Sascha Larsen DO [address] [place] [address] [facility]05/08/14
--- OUTSIDE RECORDS SUMMARY | 2025-09-12 08:51 | XMS_ITS | Clinical Summary ---
Author Organization [employer] Address [id number] [address] [place] [address] Care Team Providers Care Active Directory Engineer Name Role Phone Sascha Larsen DO Primary Care Provider + [phone] Allergies Active AllergyReactionsCriticalityNoted DateCommentsAspirinBuffd-Calcium Carb-YffCxhsptzq88/09/2022Calcium YdotguaszKqqrkc12/08/2024ephalosporinsOther (See Comments)05/20/2014MagnesiumGI Disturbance,Ihxntx1205/07/2023Oxycodone Qinbdfvvwysfph52/05/2018Sulfa (Sulfonamide Antibiotics)BudoArc7505/20/2014 Medications MedicationSigDispense QuantityRefillsLast FilledStart DateEnd DateStatus traMADoL (ULTRAM) 50 mg tablet Active methotrexate, PF, 25 mg/mL chemo syringe Active leflunomide (ARAVA) 10 mg tablet Active hydrOXYchloroQUINE (PLAQUENIL) 200 mg tablet Active folic acid (FOLVITE) 1 mg tablet Active budesonide (RINOCORT AQUA) 32 mcg/actuation nasal spray 62,500 sprays.Active insulin syringe-needle U-100 1 mL 31 gauge x 5/16 syringe Active loratadine (CLARITIN) 10 mg tablet Indications:Allergic rhinitisTake 1 tablet (10 mg total) by mouth in the morning. 30 tablet 03/28/2023ctive Additional Information Patient not taking.Reported on 06/11/2025 KLOR-CON/EF 25 mEq disintegrating tablet Take 1 tablet (25 mEq total) by mouth in the morning and 1 tablet (25 mEq total) before bedtime.4Active acetaminophen (TYLENOL EXTRA STRENGTH) 500 mg tablet Take 2 tablets (1,000 mg total) by mouth as needed in the morning and 2 tablets (1,000 mg total) asneeded at noon and 2 tablets (1,000 mg total) as needed in the evening for pain.3Active tamsulosin (FLOMAX) 0.4 mg capsule Take 1 capsule (0.4 mg total) by mouth nightly.Active prednisoLONE acetate (PRED FORTE) 1 % ophthalmic suspension 08/22/2023ctive meloxicam (MOBIC) 15 mg tablet 10/06/2024ctive leucovorin (WELLCOVORIN) 5 mg tablet 5Active predniSONE (DELTASONE) 20 mg tablet prn111/24/2023ctive primidone (MYSOLINE) 50 mg tablet 1 tablet (50 mg total). 1 po in AM 3 po at HS5Active naproxen (NAPROSYN) 250 mg tablet Active omeprazole (PriLOSEC) 40 mg capsule Oral for 90 DaysActive gabapentin (NEURONTIN) 100 mg capsule Indications:Lumbar radiculopathyTake 1 capsule (100 mg total) by mouth 3 (three) times a day. 90 capsule 5Active simvastatin (ZOCOR) 20 mg tablet TAKE 1 TABLET BY MOUTH DAILY 90 tablet 5Active montelukast (SINGULAIR) 10 mg tablet TAKE 1 TABLET BY MOUTH DAILY 90 tablet 5Active aspirin 81 mg Take 1 tablet (81 mg total) by mouth in the morning.Active fexofenadine-pseudoephedrine (CORI-D 24) 180-240 mg per 24 hr tablet Take 1 tablet by mouth as needed.Active dutasteride (AVODART) 0.5 mg capsule TAKE 1 CAPSULE BY MOUTH EVERY DAY FOR 30 DAYSActive fluticasone propionate (FLONASE) 50 mcg/actuation nasal spray 1 spray in the morning.Active budesonide-formoteroL (SYMBICORT) 80-4.5 mcg/actuation inhaler Indications:Moderate persistent asthma, unspecified whether complicatedInhale 2 puffs in the morning and 2 puffs before bedtime. 10.2 g 505Active lisinopril-hydroCHLOROthiazide (PRINZIDE,ZESTORETIC) 20-12.5 mg per tablet TAKE 1 TABLET BY MOUTH DAILY 90 tablet 5Active lisinopril-hydroCHLOROthiazide (PRINZIDE,ZESTORETIC) 20-12.5 mg per tablet TAKE 1 TABLET BY MOUTH DAILY 90 tablet Discontinued Active Problems ProblemNoted DateDiagnosed DateHospital discharge follow-up06/11/2025Syncope 06/11/2025Thoracic region somatic bvekqqeqgzh08/07/2025Intention tremor 12/17/2024rthritis of facet joint of cervical spine05/28/2024rthritis of lumbosacral spine05/28/2024PH (benign prostatic hyperplasia)05/28/2024alculus of lower third of nwpyzy0005/28/2024hronic neck pain05/28/2024ompression of right ulnar nerve at multiple httztk3305/28/2024DD (degenerative disc disease), kxryes5205/28/2024ecreased hearing of both ears05/28/20247853Qjabonsmx79/08/2024 Qmihzo7505/28/20249640Qswetjpiohpn30/08/2024Lumbosacral stenosis with neurogenic hhydwptdfoqx49/08/4853Ipxdoaeckmgm58/08/2024iriformis nopdgycl50/08/2024Renal colic4Renal colic05/28/2024Spondylolisthesis of lumbar sswbkp1705/28/2024 Stenosis, cervical spine05/28/2024Stenosis, cervical spine05/28/2024Thyroid mass of unclear dxevaslb33/08/2024Ulnar neuropathy at elbow of right upper extremity 05/28/2024Lumbar aliwacoqnumjr27/08/0528Rxrwftsangscee97/24/2024Kidney stones 12/14/2023Gross dduxzujpk07/24/2024lass 2 severe obesity due to excess calories with serious comorbidity and body mass index (BMI) of35.0 to 35.9 in adult 04/15/2023ntiphospholipid wzuytjun90/09/2022left palate and cleft lip 09/29/2022luster xnvsavob40/09/2022Hearing loss09/29/2022Morton's metatarsalgia 09/29/2022steoarthritis of knee09/29/2022arpal tunnel kdazfgfg00/12/2018 Allergic bokmljsu79/07/2017Essential fvxmyunqoxgo11/06/2017Actinic keratosis 02/12/2017Conjunctival intraepithelial /23/2015Rotator cuff syndrome of right earhqahg52/01/2009Glenoid labrum tear11/21/2008Traumatic rupture of biceps slessp4811/21/2008Connective tissue diseaseHyperlipidemia Resolved Problems ProblemNoted DateDiagnosed DateResolved DateEye / Overweight with body mass index (BMI) 25.0-29.90Squamous cell carcinoma of kkupfh90 Encounters DateTypeDepartmentCare UzubKujjbqgayab46/01/2025Refill [facility] [address] [place] [address] Sascha Larsen DO 08/16/2025Orders Only [facility] [address] [place] [address] Ref Prov, Not In System 08/14/2025Orders Only [facility] [address] [place] [address] Ref Prov, Not In System 07/08/2025Orders Only [facility] [address] [place] [address] Ref Prov, Not In System 07/01/2025Orders Only [facility] [address] [place] [address] Ref Prov, Not In System from Last 3 Months Immunizations ImmunizationAdministration DatesNext DueCovid-19, Mrna, Lnp-s, Bivalent, Pf, 30mcg/0.3 ml2Covid-19, Mrna, Lnp-s, Pf,erasmo-sucrose,30 Mcg/0.3ml Pfzlriil97/03/2023Hep B, Adolescent or Ljsmutyjz08/31/1990,10/04/1990Influenza High Dose Preservative Free IM11/03/2024Influenza, High-dose, Quadrivalent 08/23/2023,09/07/2022Influenza, Injectable, MDCK, Ycyqjrlalsae15/30/2019 Influenza, Injectable, Mdck, Preservative Free, Quad08/22/2020,09/05/2018, 07/28/2017Influenza, Injectable, Ljmhphepccdd22/20/2016Influenza, Injectable, quadrivalent (PF)07/28/2021Influenza, Xlnxabmrpdp30/15/2023,09/07/2022, 07/28/2021,08/22/2020,08/20/2019,09/05/2018,09/09/2016Pneumococcal Conjugate 13-Ddnwqs0409/16/2016Pneumococcal Conjugate 20-hduxvz3504/16/2022neumococcal Knskgzzcxupesx69/17/2024,12/05/2012RSV, bivalent, protein subunit RSVpreF, diluent reconstituted, 0.5 mL, PF08/23/20239685KEVY-GUJ-6 (COVID-19) Vaccine, Ymexurletua09/18/5446Xgco95/30/2023,12/05/2012Zoster Vaccine Recombinant 08/26/2019,06/27/2019 Family History Medical HistoryRelationNameCommentsDiabetes type IIBrotherArthritisDaughterHeart diseaseFatherHeart diseaseMotherArthritisSonRelationNameStatusCommentsBrother DaughterAliveFatherDeceasedMotherDeceasedSon Social History Tobacco UseTypesPacks/DayYears UsedDateSmoking Tobacco: FormerCigarettes0.512 05/28/1975 - 05/28/1987Passive Smoke Exposure: PastSmokeless Tobacco: Never Tobacco Cessation:Counseling Given: Not Answered Alcohol UseStandard Drinks/WeekCommentsNot Currently0 (1 standard drink = 0.6 oz pure alcohol)[facility] UtilitiesAnswerDate RecordedIn the past 12 months has the Location, gas, oil, or water [employer] threatened to shut off services in your home?No05/01/2024Social Connection and Isolation PanelAnswerDate RecordedIn a typical week, how many times do you talk on the phone with family, friends, or neighbors?Once a week04/14/2023How often do you get together with friends or relatives?Once a week04/14/2023How often do you attend quaker or mosque services?More than 4 times per year04/14/2023o you belong to any clubs or organizations such as quaker groups, unions, fraternal or athletic groups, or school groups?Yes04/14/2023How often do you attend meetings of the clubs or organizations you belong to?Never04/14/2023re you , , , , never , or living with a partner?Dpeyjvz5004/14/2023UDIT-C AnswerDate RecordedQ1: How often do you have a drink containing alcohol?Never 03/28/2023Q2: How many drinks containing alcohol do you have on a typical day when you are drinking?Patient does not drink03/28/2023Q3: How often do you have six or more drinks on one occasion?Never03/28/2023Overall Financial Resource Strain (CARDIA)AnswerDate RecordedHow hard is it for you to pay for the very basics like food, housing, medical care, and heating?Not hard at all04/14/2023 PHQ-2AnswerDate RecordedTotal Vrois122[facility] [place] of Occupational Health - Occupational Stress QuestionnaireAnswerDate RecordedDo you feel stress - tense, restless, nervous, or anxious, or unable to sleep at night because your mind is troubled all the time - these days?Not at all04/14/2023Exercise Vital SignAnswerDate RecordedOn average, how many days per week do you engage in moderate to strenuous exercise (like a brisk walk)?0 days05/07/2025On average, how many minutes do you engage in exercise at this level?0 min05/07/2025PRAPARE - TransportationAnswerDate RecordedIn the past 12 months, has lack of transportation kept you from medical appointments or from getting medications?No 04/14/2023In the past 12 months, has lack of transportation kept you from meetings, work, or from getting things needed for daily living?No04/14/2023 Housing InstabilityAnswerDate RecordedAre you worried or concerned that in the next two months you may not have stable housing that you own, rent or stay in as a part of a household?No04/14/2023hildcareAnswerDate RecordedDo problems getting child development director make it difficult for you to work or study?No04/14/2023 EmploymentAnswerDate RecordedDo you need help finding a local career center and/or a training program?No04/14/2023Hunger ScreeningAnswerDate RecordedWithin the past 12 months we worried whether our food would run out before we got money to buy more.Never True06/11/2025Within the past 12 months the food we bought just didn't last and we didn't have money to get more.Never True06/11/2025 Purpose - LifeAnswerDate RecordedI have a purpose and direction in my life. Strongly Agree04/14/2023Sex and Gender InformationValueDate RecordedSex Assigned at BirthNot on fileLegal CvyBzbb9306/26/2015 11:34 AM EDTGender IdentityNot on fileSexual OrientationNot on file Last Filed Vital Signs Vital SignReadingTime TakenCommentsBlood Ovbhclnu088/6807 1:57 PM EDT Hbasl618706/11/2025 1:57 PM IULFtajubyzjka19.1 ??C (98.8 ??F)06/11/2025 1:57 PM EDTRespiratory Nvfl620806/11/2025 1:57 PM EDTOxygen Krnpyblcsq70%06/11/2025 1:57 PM EDTInhaled Oxygen Concentration--Ufdhgc316.2 kg (221 lb)06/11/2025 1:57 PM RTPSrcwmo546.2 cm (5' 7.01 )06/11/2025 1:57 PM EDTBody Mass Index34.61006/11/2025 1:57 PM EDT Plan of Treatment DateTypeDepartmentCare Team (Latest Contact Info)Jleaimwpfgw62/23/2026 10:20 AM EDTOffice Visit [facility] [address] [place] [address] Health MaintenanceDue DateLast DoneCommentsAbdominal Aortic Aneurysm (AAA) Qmwzdk912COVID-19 Vaccine (3 - Pfizer risk series)/01/2023, 10/08/2022, 10/08/2022Influenza Igjdnev46/, 08/23/2023, 12/05/2022, Additional history existsMedicare Annual Wellness Visit05/07/2026 05/07/2025, 05/01/2024, 04/14/2023dult BMI Follow Up Plan Adult BMI Ihttwnqvi48Depression Zkkpucyyg93/ Fall Risk Wqkzzcjjf84/Tobacco Uzxpfbgnv80 Cszhuuuckiy06DTaP,Tdap and Td Vaccines (3 - Td or Tdap) /, 12/05/2012Zoster (Shingles) LrtfklsGjhuknwrn55/06/2019, 06/27/2019 Medical Devices Not on file Procedures Procedure NamePriorityDate/TimeAssociated DiagnosisCommentsBASIC METABOLIC PANEL Mrlghty1408/16/2025 9:12 AM EDTXR ABDOMEN AP 1 VEAfmivej59/24/2025 2:04 PM EDTHM FBWKAXDJTFPEwreblg57/26/2017 7:42 AM EDTfrom Last 3 Months or Most Recently Relevant to Health Maintenance Results * Basic Metabolic Panel (08/16/2025 9:12 AM EDT)Specimen (Source)Anatomical Location / LateralityCollection Method / VolumeCollection TimeReceived Time BloodVenous blood / Unknown Narrative Authorizing ProviderResult TypeResult StatusNot In System Ref ProvLAB BLOOD ORDERABLESFinal ResultPerforming OrganizationAddressCity/State/ZIP CodePhone Number MANUALLY TRANSCRIBED RESULTS * X-ray abdomen ap 1 view (08/14/2025 2:04 PM EDT)Anatomical RegionLaterality ModalityBody, AbdomenN/AComputed Radiography Narrative Authorizing ProviderResult TypeResult StatusNot In System Ref ProvIMG DIAGNOSTIC IMAGING ORDERABLESFinal Result * HM COLONOSCOPY (06/15/2017 7:42 AM EDT) Narrative Authorizing ProviderResult TypeResult StatusScanning Provider ExternalHEALTH MAINTENANCEFinal ResultPerforming OrganizationAddressCity/State/ZIP CodePhone Number MANUALLY TRANSCRIBED RESULTS from Last 3 Months or Most Recently Relevant to Health Maintenance Insurance Care Teams Team MemberRelationshipSpecialtyStart DateEnd Date Sascha Larsen DO [address] [place] [address] PCP - GeneralFamily Lkzglybx44/3/22
--- OUTSIDE RECORDS SUMMARY | 2025-09-12 08:52 | XMS_ITS | Encounter Summary ---
Author Organization [facility] Address [address] [facility] [place] [address] Care Team Providers Care Tavern Car Attendant Name Role Phone Arsenio Loera MD Unavailable Liamhima Carlos Navarro DO Unavailable [phone] Sascha Larsen MD Primary Care Provider + [phone] Encounter Details DateTypeDepartmentCare Team (Latest Contact Info)Jtwqspdrcyx28/09/2025[facility]phone [facility] [address] [facility] [address] [place] [address] Susan Multani MA Social History Tobacco UseTypesPacks/DayYears UsedDateSmoking Tobacco: FormerCigarettes Smokeless Tobacco: NeverAlcohol UseStandard Drinks/WeekCommentsNever0 (1 standard drink = 0.6 oz pure alcohol)none caffeineSex and Gender Information ValueDate RecordedSex Assigned at BirthNot on fileLegal XliBhgx5002/02/2023 6:58 PM EDTGender IdentityNot on fileSexual OrientationNot on filedocumented as of this encounter Miscellaneous Notes * Telephone Encounter - Zara John MA - 09/01/2025 9:33 PM EDT This was faxed. * Telephone Encounter - Susan Multani MA - 08/29/2025 9:30 AM EDT Slater PST calls and leaves message for last office note. Patient has PST appt on 09/03. documented in this encounter Plan of Treatment DateTypeDepartmentCare Team (Latest Contact Info)Ezbzpaceawz05/30/2025 11:50 AM EDTProcedure Visit [facility] [address] [facility] [address] [place] [address] Kali Terrazas, DPEduard [address] [facility] [address] [place] [address] 09/30/2025 9:30 AM ESTOffice Visit [facility] [place] [facility] [address] [facility] [address] [place] [address] Junito Taylor MD [address] [facility] [address] [id number] 12/18/2025 1:45 PM ESTOffice Visit [facility] [place] [facility] [address] [place] [address] Carlos Eden W, DO [address] [place] [address] documented as of this encounter Visit Diagnoses Not on filedocumented in this encounter Care Teams Team MemberRelationshipSpecialtyStart DateEnd Date Sascha Larsen MD [address] [facility] [address] PCP - GeneralFamily Medicine01/30/25 Arsenio Loera MD [address] [place] [address], [address] [place] [address] Referring PhysicianNeurosurgery06/13/24 Carlos Eden DO [address] [place] [address] Otolaryngology06/13/24documented as of this encounter
--- OUTSIDE RECORDS SUMMARY | 2025-09-12 08:59 | XMS_ITS | CCD ---
Author Organization [facility] Care Team Providers Care Filteration Operator Name Role Phone REBEKAH REED Unavailable Unavailable REBEKAH REED Unavailable Unavailable DO Sascha Sutton Primary Care Provider [phone] MD Adam Davis Attending Provider [phone] DO Sascha Sutton Primary Care Provider [phone] WILLOW Sanchez Attending Provider KARIN Ibrahim Attending Provider [phone] DO Sascha Sutton Primary Care Provider WILLOW [...] Care Provider MD Zac Muniz Attending Provider [phone] Furlong, DO Sascha Primary Care Provider [phone] MD Romel Davis Attending Provider [phone] Herman, DO Sascha Primary Care Provider MD Zac Muniz Attending Provider MD Romel Davis Attending Provider Furgeneng, DO Sascha Primary Care Provider [phone] MD Romel Davis Attending Provider MD Zac Muniz Attending Provider Furlong, DO Sascha Primary Care Provider MD Romel Davis Attending Provider [phone] Herman, DO Sascha Attending Provider SASCHA SUTTON Referring Unavailable FURLOOSMANI, SASCHA Candelaria Primary Care Unavailable Unavailable Primary Care Provider Unavailabl e Sascha Sutton MD Primary Care Provider [phone] WILLOW Hernandez Attending Provider Мария Hernandez Unavailable [...] Provider MD Edenilson Mcleod Primary Care Provider [phone] MD Romel Davis Attending Provider MD Jaime Murcia II Attending Provider MARCOS Fonseca Attending Provider Edenilson Mcleod MD Primary Care Provider Jaime Murcia MD Attending Provider Myriam Fonseca APRN Attending Provider Furlong DO, Sascha Primary Care Provider Romel Davis MD Attending Provider Evaristo ONEAL, Mckenzie Unavailable Murandrea FERRELLCarlos W Unavailable [phone] Mckenzie Khalil MD Unavailable Furlong DO, Sascha G Primary Care Provider Edenilson Mcleod MD Primary Care Provider Jaime Murcia MD Attending Provider Furlong DO, Sascha Attending Provider Evaristo ONEAL, Mckenzie Unavailable Furlong DO, Sascha Primary Care Provider Matthew Harrell PA-C Emergency Provider Romel Davis MD Attending Provider Sascha Sutton MD Primary Care Provider Furlong DO, Sascha Primary Care Provider [phone] Jaime Murcia MD Attending Provider Furlong DO, Sascha Attending Provider [phone] Matthew Harrell PA-C Emergency Provider Romel Davis MD Attending Provider Furlong DO, Sascha Primary Care Provider [phone] Jaime Murcia MD Attending Provider [phone] Martha Gomes MD Emergency Provider Marley Dumont MD Admit Provider Marley Dumont MD Attending Provider Yohan ONEAL, Gabi Attending Provider Vernell ONEAL, Rita Other Provider Furlong DO, Sascha G Primary Care Provider Evaristo ONEAL, Mckenzie Unavailable Furlong DO, Sascha Primary Care Provider Furlong DO, Sascha Attending Provider [phone] Furlong DO, Sascha Primary Care Provider Romel Davis MD Attending Provider [phone] Furlong DO, Sascha Primary Care Provider [phone] Jaime Murcia MD Attending Provider Laura PILLOW FILLER-C, Christine Gaviria Attending Provider FURLONG, SASCHA G [...] Furlong DO, Sascha Primary Care Provider [phone] Laura PILLOW FILLER-C, Christine Gaviria Other Provider [phone] Danet Simmons MD Attending Provider Melanie Trujillo DO Attending Provider Furlong DO, Sascha Primary Care Provider Becki PILLOW FILLER-C, Shabnam Pandey Attending Provider [phone] Kaitlyn Troy MD Referring Provider Cynthialong , Sascha Primary Care Provider Oblukas PILLOW FILLER-C, Christine Gaviria Attending Provider Edenilson Mcleod MD [...] Twin HOOKER, Jaime Chapa Attending Unavailabl e [place], Jaime Chapa Admitting Unavailabl e Furlong, Sascha Primary Care Unavailable Furlong, Sascha Attending Unavailable Furlong, Sascha Admitting Unavailable Furlong, Sascha Primary Care Unavailable Furlong, Sascha Attending Unavailable Furlong, Sascha Admitting Unavailable Furlong, Sascha Primary Care Unavailable Twin HOOKER, Jaime Chapa Attending Unavailabl e [place], Jaime Chapa Admitting Unavailabl e Felter, Edenilson Primary Care Unavailable [place], Jaime Chapa Attending Unavailabl e Twin [...] Attending Unavailable MUNIZ, Zac R Attending Unavailable MUINZ, Zac R Attending Unavailable Daria Jimenez Attending Unavailable ALFONSO TRUJILLO Attending Unavailable FURLONG, SASCHA ESTHER Primary Care Unavailab le ALFONSO TRUJILLO Referring Unavailable FURLONG, SASCHA ESTHER Primary Care Unavailab le Allergies Allergy ClassificationReported Allergen(s)Allergy TypeDate of OnsetReaction(s) FacilityCalcium Carbonate (4 sources)Calcium CarbonateDrug Hmlopeb60-88-9973CdhiigZfrypmwhcKettering Health Greene MemorialCephalosporins (antibiotic) (8 sources)CephalexinDrug Uiofbgn62-43-9997Kfalzgi ReactionOhio State East HospitalMagnesium (4 sources)MagnesiumDrug Wdazihq16-29-9070VptarfRmdfwjzvcKettering Health Greene MemorialOpioid Agonists (4 sources)oxyCODONEDrug Snkkqvw54-78-1644BdmksbqnkswvxWjvexjeyq Regional Medical CenterSulfonamides (antibiotic) (4 sources)Sulfonamides (Antibiotic)Drug Ougaqoj02-80-1176PboeBfrreberzOhio State East Hospital (20 sources)cephalexin; Translations: [CEPHALEXIN]Drug Eudelea86-28-7586Mfwktal (qualifier value), [facility] Rep[facility] (20 sources)oxyCODONE; Translations: [OXYCODONE]Drug Cilfmoh40-38-3883 Hallucinations (finding), [place] Repository (20 sources)Sulfonamides (Antibiotic); Translations: [SULFA (SULFONAMIDE ANTIBIOTICS)]Propensity to adverse reactions to drug (disorder)69-86-8327Wbpih (See Comments), [facility] Repository (2 sources)ASPIRIN, BUFFERED; Translations: [ASPIRIN, BUFFERED]Propensity to adverse reactions to drug (disorder)15-57-1317TKFExzimxuywSt. Mary's Medical Center Repository (20 sources)Calcium Carbonate; Translations: [CALCIUM CARBONATE]Drug Allergy 16-58-9519IE intolerance, NauseaOhio State East HospitalComment on above:Is able to take aspirin (20 sources)Cephalosporins (Antibiotic); Translations: [Cephalosporins]Allergy to cuvmhcaaq41-33-2049Waiwexg, Other (See Comments)[facility] (20 sources)Magnesium; Translations: [MAGNESIUM]Drug Naisxnx74-51-0284CR intolerance, GI Disturbance, NauseaOhio State East HospitalComment on above:Is able to take aspirin (1 source)Sulfonamides (Antibiotic)Drug allergy (disorder)[facility] Repository (4 sources)Sulfamethoxazole; Translations: [sulfa]Drug AllergyUnknownMP-[facility] DO Work Phone: (12 sources)Sulfonamides (Antibiotic); Translations: [sulfa drugs]Drug allergy Unknown (qualifier value)[facility] (20 sources)ASPIRIN,BUFFD-CALCIUM CARB-MAG; Translations: [ASPIRIN,BUFFD-CALCIUM CARB-MAG]Propensity to adverse reactions to drug (disorder)65-90-8599Jmjudsjv, Nausea/vomitingProMedica Repository (20 sources)AspirinDrug Cliapks70-94-7595ET[facility] (20 sources)Sulfonamides (Antibiotic)Drug Lsxhqor16-93-3473QbkpRIII Healthcare (1 source)AspirinDrug AllergyEndurance Lending NetworkSaint Mary's Health Center eduplanet KK Other (1 source)Sulfacetamide in BakuchiolDrug allergyChelsea Memorial HospitalTrendslideManhattan Psychiatric Center Art[employer] Other Medications Current Medications MedicationDrug Class(es)DatesSig (Normalized)Sig (Original)acetaminophen 500 mg oral tablet (20 sources)Start: 05-09-2023 End: 90-74-7448nbfjyvuhencrq (TYLENOL EXTRA STRENGTH) 500 mg tablet Take 2 tablets (1,000 mg total) by mouth as needed in the morning and 2 tablets (1,000 mg total) as needed at noon and 2 tablets (1,000 mg total) as needed in the evening for pain. 05/09/2023 ActiveStart: 98-65-2701ufmk 1 mg by mouth every six hoursacetaminophen 500 mg Tab mg tab(s), Oral, q6hr, Refills(s) 0 Start Date: 05/09/23 Status: Ordered Repeat number: 1Start: 30-50-1026ojdn 2 tablets by mouth three times daily as needed for painacetaminophen (TYLENOL EXTRA STRENGTH) 500 mg tablet Take 2 tablets (1,000 mg total) by mouth 3 (three) times a day as needed for pain. 05/09/2023 ActiveStart: 77-65-4537Qicih: 03-31-2023 Acetaminophen Active 1000 MG PO 2-3 TIMES PER DAY March 31, 2023 12:00amStart: 00-20-4293mgke 1000 mg by mouth once dailyAcetaminophen Active 1000 MG PO Daily March 31, 2023 12:00amStart: 11-05-2018 End: 09-88-6302tzch 1 capsule by mouth three times dailyAcetaminophen 500 mg Capsule Discontinued 500 MG PO Three times daily November 05, 2018 1:00am Sep tember 2018 3:26pmtake 2 tablets by mouth twice dailyacetaminophen (Tylenol) 500 mg tablet Take 2 tablets (1,000 mg) by mouth twice a day. Active take 1 tablet by mouth every eight hoursAcetaminophen Extra Strength 500 MG 1 tablet as needed Orally 3 times a day ActiveTylenol 500 MG CAPS 2 caps 2-3 times daily Quantity: 0 Refills: 0 Ordered: 30-Mar-2023 DO Activeamoxicillin 500 mg oral capsule (3 sources)Penicillin-class AntibacterialStart: 01-25-2025 End: 24-14-0270faey 1 capsule by mouth three times dailyamoxicillin (AMOXIL) 500 mg capsule Take 1 capsule (500 mg total) by mouth 3 (three) times a day for 5 days. 15 capsule 01/25/2025 01/30/2025 ActiveStart: 10-09-2024 End: 24-65-5839gioq 1 tablet by mouth in the morning, then take 1 tablet by mouth at bedtimeamoxicillin (AMOXIL) 875 mg tablet Take 1 tablet (875 mg total) by mouth in the morning and 1 tablet (875 mg total) before bedtime. Do all this for 10 days. 20 tablet 10/09/2024 10/19/2024 Activeaspirin 81 mg delayed release oral tablet (20 sources)Platelet Aggregation Inhibitor, Nonsteroidal Anti-inflammatory Drug Start: 58-39-0760Kaveb: 39-47-2255gmqa 1 mg by mouth every twenty-four hours aspirin 81 mg oral capsule mg cap(s), Oral, q24hr, Refills(s) 0 Start Date: 09/19/23 Status: Ordered Repeat number: 1Start: 78-93-6079ingt 1 mg by mouth every four hoursaspirin 325 mg oral capsule mg cap(s), Oral, q4hr, Refills(s) 0 Start Date: 05/09/23 Status: OrderedStart: 07-19-2019 End: 19-37-9464aujk 1 tablet by mouth once daily in the morningAspirin 325 mg Tablet Discontinued 325 MG PO Every morning July 19, 2019 12:00am April 0431:11pmStart: 11-05-2018 End: 31-10-2727aqxu 1 tablet by mouth once dailyAspirin (Aspir-81) 81 mg Tablet,Delayed Release (Dr/Ec) Discontinued 325 MG PO Daily October 1:00am November 05, 2018 1:25pm End: 19-00-6870tvzaydy 81 mg chewable tablet Chew 1 tablet (81 mg total) and swallow in the morning. 05/01/2024 Discontinued (Therapy completed)azithromycin 250 mg oral tablet (1 source)Macrolide AntimicrobialStart: 10-02-2024 End: 64-74-6407uwhjhdfrflht (ZITHROMAX) 250 mg tablet Take 2 tablets the first day, then 1 tablet daily for 4 days. 6 tablet 10/02/2024 10/07/2024 ActiveB Complex Vitamins (vitamin B complex) tablet (1 source)B Complex Vitamins (vitamin B complex) tablet as directed Orally 0 Activebiotin 10 mg oral capsule (20 sources)Start: 11-19-2024 End: 91-63-1325ngau 1 capsule by mouth in the morningbiotin 10 MG capsule Indications: Intention tremor Take 1 capsule (10 mg) by mouth in the morning and 1 capsule (10 mg) before bedtime. 60 capsule 11 11/19/2024 05/15/2025 Discontinued (Ineffective)Start: 11-19-2024 End: 19-96-7908nrki 10 mg by mouth in the morningbiotin 10,000 mcg capsule Take 10 mg by mouth in the morning and 10 mg before bedtime. 11/19/2024 02/25/2025 Discontinued (Therapy completed)Start: 11-09-2024 End: 38-56-1847hfwt 1 tablet by mouth once dailyBiotin 10 mg tablet Discontinued 10 MG PO Daily November 09, 2024 1:00am January 12, 2025 12:57pmStart: 10-15-2024 End: 05-34-4128exrn 1 capsule by mouth in the morningbiotin 10 MG capsule Indications: Intention tremor Take 1 capsule (10 mg) by mouth in the morning and 1 capsule (10 mg) before bedtime. 60 capsule 10/15/2024 11/14/2024 Active budesonide 0.032 mg/actuat metered dose nasal spray (20 sources)Corticosteroidbudesonide (RINOCORT AQUA) 32 mcg/actuation nasal spray 62,500 sprays. Activebudesonide (Rhinocort AQ) 32 MCG/ACT nasal spray 62,500 sprays ActiveBudesonide / formoterol (4 sources)Corticosteroid, beta2-Adrenergic AgonistStart: 70-11-8926jtpd 2 puff(s) by inhalation in the morningbudesonide-formoteroL (SYMBICORT) 80-4.5 mcg/actuation inhaler Indications: Moderate persistent asthma, unspecified whether complicated Inhale 2 puffs in the morning and 2 puffs before bedtime. 10.2 g 5 05/28/2025 Activetake 2 puff(s) by mouth twice dailybudesonide- formoterol (Symbicort) 80-4.5 mcg/actuation inhaler Inhale 2 puffs 2 times a day. Rinse mouth with water after use to reduce aftertaste and incidence of candidiasis. Do not swallow. Activebudesonide-formoterol 80 mcg-4.5 mcg/inh Inh Aer w/adapter (2 sources)Start: 70-51-2384vmyxtltiqy-formoterol 80 mcg-4.5 mcg/inh Inh Aer w/adapter 2 inh, Refill(s) 0 Start Date: 06/12/25 Status: Ordered Repeat number: 1carboxymethylcellulose 0.01 mg/mg ophthalmic gel (20 sources)Start: 70-91-5896fgvbj 1 drop(s) into the eye(s) once daily as neededStart: 56-45-3461mjhrl 1 drop(s) into the eye(s) once daily as needed Carboxymethylcellulose Sodium (Refresh Liquigel) 1 % Drops, Liquid Gel Active 1 DROPS EYE-BOTH Daily as needed for dry eye(s) March 31, 2023 12:00am Carboxymethylcellulose Sodium (Refresh Liquigel) 1 % Drops, Liquid Gel (7 sources)Start: 30-65-9233mbcag 1 drop(s) into the eye(s) once daily Carboxymethylcellulose Sodium (Refresh Liquigel) 1 % Drops, Liquid Gel Active 1 DROPS EYE-BOTH Daily March 31, 2023 12:00amdexamethasone 2 mg oral tablet (11 sources)CorticosteroidStart: 03-21-2025 End: 44-16-4394xfaf 1 tablet by mouth once dailydexAMETHasone (Decadron) 2 MG tablet Indications: Piriformis syndrome of right side Take 1 tablet by mouth once daily for 7 days. 7 tablet 1 03/21/2025 Activediclofenac sodium 0.01 mg/mg topical gel (18 sources)Nonsteroidal Anti-inflammatory DrugStart: 97-81-9010Nnqhp: 77-73-4933Vvkseolxyg Sodium (Voltaren Arthritis Pain) 1 % gel Active 2 GM TOPICAL Four times daily January 12, 2025 1:00am apply to single elbow, wrist or hand; for hand includes palm/fingers/back of handStart: 01-12-2025 Diclofenac Sodium (Voltaren Arthritis Pain) 1 % gel Active 2 GM TOPICAL Four times daily January 12, 2025 12:00am apply to single elbow, wrist or hand; for hand includes palm/fingers/back of handdutasteride 0.5 mg oral capsule (14 sources)5-alpha Reductase InhibitorStart: 04-29-2025 End: 09-38-7091ylpo 1 capsule by mouth once dailydutasteride 0.5 mg Cap 0.5 mg = 1 cap(s), Oral, Daily, X 30 day(s), # 30 cap(s), Refills(s) 11, Pharmacy: [facility]/pharmacy #[id number], 173, cm, 04/29/25 9:39:00 EDT, Height/Length Dosing, 99, kg, 04/29/25 9:39:00 EDT, Weight Dosing Start Date: 04/29/25 Stop Date: 04/24/26 Status: Ordered Quantity: 30.0 Unit: cap(s) Repeat number: 12eyelid cleanser combination 3 (OCUSOFT LID SCRUB PLUS TOP) (1 source)eyelid cleanser combination 3 (OCUSOFT LID SCRUB PLUS TOP) Apply topically. Activefexofenadine (11 sources)Histamine-1 Receptor AntagonistStart: 79-93-3613Lvngqsh D OTC 24HR Oral, Daily, Refill(s) 0 Start Date: 05/09/23 Status: Ordered Repeat number: 1 Start: 60-08-6873Lnofhfa D OTC 24HR Oral, Daily, Refill(s) 0 Start Date: 05/09/23 Status: Jbwutxk08 hr fexofenadine hydrochloride 180 mg / pseudoephedrine hydrochloride 240 mg extended release oral tablet (20 sources)alpha-Adrenergic Agonist, Histamine-1 Receptor AntagonistStart: 62-95-1897ikml 1 tablet by mouth once daily as needed, then take 1 tablet by mouth every twenty-four hours asneededStart: 77-31-9548vuik 1 tablet by mouth once daily as needed, then take 1 tablet by mouth every twenty-four hours as neededFexofenadine-Pseudoephedrine (Seema-D 24 Hour) 180-240 mg Tablet Extended Release 24 Hr Active 1 TAB PO Daily as needed for allergies March 31, 2023 12:00amStart: 24-89-5297kyfl 1 tablet by mouth once daily as needed, then take 1 tablet by mouth every twenty-four hours asneededFexofenadine- Pseudoephedrine (Seema-D 24 Hour) 180-240 mg Tablet Extended Release 24 Hr Active 1 TAB PO Daily as needed for allergies March 30, 2023 11:00pmStart: 07-79-6291fkkh 1 tablet by mouth once daily, then take 1 tablet by mouth every twenty-four hoursFexofenadine-Pseudoephedrine (Seema-D 24 Hour) 180-240 mg Tablet Extended Release 24 Hr Active 1 TAB PO Daily March 30, 2023 11:00pmStart: 05-99-6921iiea 1 tablet by mouth once daily, then take 1 tablet by mouth every twenty-four hoursFexofenadine-Pseudoephedrine (Seema-D 24 Hour) 180-240 mg Tablet Extended Release 24 Hr Active 1 TAB PO Daily March 31, 2023 12:00amtake 1 tablet by mouth once as neededfexofenadine-pseudoephedrine (SEEMA-D 24) 180- 240 mg per 24 hr tablet Take 1 tablet by mouth as needed. Activetake 1 tablet by mouth twice dailyfexofenadine-pseudoephedrine (Seema-D) 60-120 mg 12 hr tablet Take 1 tablet by mouth 2 times a day. Do not crush, chew, or split. Activetake 1 tablet by mouth once daily as neededFexofenadine-Pseudoephedrine (SEEMA-D 24 HOUR PO) Take 1 tablet by mouth Daily as needed Tmqoga02 actuat fluticasone furoate 0.1 mg/actuat / umeclidinium 0.0625 mg/actuat / vilanterol 0.025 mg/ac tuat dry powder inhaler (2 sources)Anticholinergic, Corticosteroid, beta2-Adrenergic AgonistStart: 09-24-2024 End: 83-47-6686twkv 1 puff(s) by inhalation once daily tgxrkthnytd-bkjjlngql-vmjufmwj (TRELEGY ELLIPTA) 100-62.5-25 mcg blister with device Inhale 1 puff once daily for 14 days. 1 each 09/24/2024 10/08/2024 Active folic acid 1 mg oral tablet (20 sources)Start: 46-11-3867oofy 1 tablet by mouth once dailyfolic acid 1 mg Tab mg tab(s), Oral, Daily, Refills(s) 0 Start Date: 05/09/23 Status: Ordered Repeatnumber: 1Start: 28-89-3569nxpl 1 tablet by mouth twice dailyStart: 80-78-1846eiyi 1-2 mg by mouth once dailyFolic Acid Active 1 - 2 MG PO Daily April 25, 2018 12:00amgabapentin 100 mg oral capsule (18 sources)Anti-epileptic AgentStart: 04-16-2025 End: 81-44-4293dmpq 1 capsule by mouth three times dailygabapentin (NEURONTIN) 100 mg capsule Indications: Lumbar radiculopathy Take 1 capsule (100 mg total) by mouth 3 (three) times a day. 90 capsule 1 04/16/2025 Active hydroCHLOROthiazide 12.5 mg oral tablet (1 source)Thiazide Diuretictake 1 tablet by mouth once dailyhydroCHLOROthiazide (Microzide) 12.5 mg tablet Take 1 tablet (12.5 mg) by mouth once daily. Active hydroCHLOROthiazide 12.5 mg / lisinopril 20 mg oral tablet (20 sources)Thiazide Diuretic, Angiotensin Converting Enzyme InhibitorStart: 39-03-7848wphygckhbcycvowlexm-lisinopril 12.5 mg-20 mg Tab 1 tab(s), Refill(s) 0 Start Date: 06/12/25 Status: Ordered Repeat number: 1Start: 05-12-2019 End: 85-44-7564ylhu 1 tablet by mouth once dailylisinopril-hydroCHLOROthiazide (PRINZIDE,ZESTORETIC) 20-12.5 mg per tablet TAKE 1 TABLET BY MOUTH DAILY 90 tablet 1 08/21/2025 Activehydroxychloroquine sulfate 200 mg oral tablet (20 sources)Antimalarial, Antirheumatic AgentStart: 30-34-0230bjor 1 mg by mouth once dailyhydroxychloroquine 200 mg Tab mg tab(s), Oral, Daily, Refills(s) 0 Start Date: 05/09/23 Status: Ordered Repeat number: 1Start: 54-77-3214edjs 1 tablet by mouth twice dailyleflunomide 10 mg oral tablet (20 sources)Antirheumatic AgentStart: 73-32-3411ipku 1 tablet by mouth once daily in the morningleucovorin 5 mg oral tablet (20 sources)Folate AnalogStart: 14-54-8561lpxivaeqyg (WELLCOVORIN) 5 mg tablet 12/06/2024 Activetake 1 tablet by mouth once dailyleucovorin (Wellcovorin) 5 mg tablet Take 1 tablet (5 mg total) by mouth once daily. Take with a full glass of water. Activelidocaine 0.05 mg/mg medicated patch (18 sources)Antiarrhythmic, Amide Local AnestheticStart: 74-88-4573jmkzy 1 dose topically every twenty-four hourslisinopril 20 mg oral tablet (20 sources)Angiotensin Converting Enzyme InhibitorStart: 37-73-0861cylu 1 mg by mouth once dailylisinopril 20 mg Tab mg tab(s), Oral, Daily, Refills(s) 0 Start Date: 05/09/23 Status: OrderedStart: 04-25-2018 End: 64-28-9661aqyl 1 tablet by mouth once dailyLisinopril 20 mg tablet Discontinued 20 MG PO Daily April 25, 2018 12:00am May 12, 2019 2:29am loratadine 10 mg oral tablet (20 sources)Start: 75-58-2799vuts 1 tablet by mouth in the morningloratadine (CLARITIN) 10 mg tablet Indications: Allergic rhinitis Take 1 tablet (10 mg total) by mouth in the morning. 30 tablet 03/28/2023 Activemeloxicam 15 mg oral tablet (20 sources)Nonsteroidal Anti-inflammatory DrugStart: 12-17-2024 End: 10-30-4447hqxv 1 tablet by mouth once dailyMeloxicam 15 mg tablet Discontinued 0 .ROUTE .COMPLEX 30 March 18, 2025 3:04pm April 10, 2025 10:03am TAKE 1 TABLET BY MOUTH DAILYStart: 08-29-2024 End: 34-32-5741rjccljokd 7.5 mg/5 mL suspension daily 08/29/2024 12/17/2024 Discontinued (Duplicate order)Start: 08-29-2024 End: 97-96-9286ryed 1 tablet by mouth once daily2 ml methotrexate 25 mg/ml injection (20 sources)Folate Analog Metabolic InhibitorStart: 58-03-7835Cyjhdllvldbe Sodium (methotrexate PF) 50 MG/2ML syringe 10/08/2024 ActiveStart: 10-08-2024 methotrexate sodium/PF (methotrexate, PF,) 25 mg/mL 1 mL (25 mg) 1 (one) time per week. 10/08/2024 ActiveStart: 03-68-9903abtmsa 1 mg intravenously once methotrexate 1 g injection mg/m2, IV, Once, Refills(s) 0 Start Date: 05/09/23 Status: Ordered Repeatnumber: 1Start: 25-56-0541figenw 1 mg intravenously once methotrexate 1 g injection mg/m2, IV, Once, Refills(s) 0 Start Date: 05/09/23 Status: OrderedStart: 60-55-3795utetsn 25 mg by subcutaneous injection every weekStart: 95-49-0329sfeitf 25 mg by subcutaneous injection every week Methotrexate Sodium Active 25 MG SUBCUT every week November 05, 2018 1:00am taken on saturdaysmethotrexate, PF, 25 mg/mL chemo syringe Active End: 48-72-2761oiknbwawaorf (Xatmep) 2.5 MG/ML oral solution Take 2.5 mg by mouth Activemethotrexate, PF, 25 mg/mL chemo syringe ActiveMethotrexate 2.5 MG 1 needle Orally once a week *please review for potential _update for e-prescript ion and drug interaction check* ActiveMethotrexate Sodium 1 GM Injection Solution Reconstituted USE DIRECTED. Quantity: 0 Refills: 0 Ordered: 30-Mar-2023 DO ActivemethylPREDNISolone 4 mg oral tablet (20 sources)CorticosteroidStart: 01-30-2025 End: 33-04-4568ojlrzgYLEBIADwjlet (Medrol Dospak) 4 MG tablets Indications: Tenosynovitis of right lower leg Follow schedule on MEDROL PACK package instructions to be used as directed 21 tablet 01/30/2025 03/21/2025 Discontinued Start: 24-04-6337ecxkjiNTIPHVTilivs (Medrol Dospak) 4 MG tablets Indications: Tenosynovitis of right lower leg Follow schedule on MEDROL PACK package instructions to be used as directed 21 tablet 01/30/2025 ActiveStart: 05-09-2023 End: 90-37-4884covw 1 tablet by mouth once as neededMethylprednisolone (Medrol (Nicolas)) 4 mg tablets,dose pack Discontinued 0 PO per package directions as needed for pain January 12, 2025 1:00am March 27, 2025 8:17am orally per package directions PRN;PO PER PKG DIRStart: 11-05-2018 End: 35-68-0698otab 1 tablet by mouth once as neededMethylprednisolone (Medrol (Nicolas)) 4 mg tablets,dose pack Discontinued 1 dose pk PO per package directions as needed for UCTD July 19, 2019 10:35am July 24, 2019 3:25pmMedrol (Nicolas) 4 MG TABS USE DIRECTED. Quantity: 0 Refills: 0 Ordered: 30-Mar-2023 DO Activemontelukast 10 mg oral tablet (20 sources)Leukotriene Receptor AntagonistStart: 04-25-2018 End: 42-30-4215hrcd 1 tablet by mouth once dailymontelukast (SINGULAIR) 10 mg tablet TAKE 1 TABLET BY MOUTH DAILY 90 tablet 3 05/27/2025 Activenabumetone 750 mg oral tablet (20 sources)Nonsteroidal Anti-inflammatory DrugStart: 05-09-2023 End: 62-72-2440fmbursyxyh (Relafen) 750 MG tablet Take 750 mg by mouth 06/09/2024 ActiveStart: 04-25-2018 End: 00-43-9727nmfx 1 tablet by mouth twice dailyNabumetone 750 mg tablet Discontinued 750 MG PO Twice daily April 25, 2018 12:00am October 17, 2024 10:04amtake 1 tablet by mouth every twelve hoursNabumetone 750 MG Oral Tablet TAKE 1 TABLET EVERY 12 HOURS. Quantity: 0 Refills: 0 Ordered: 30-Mar-2023 DO Activenaproxen 250 mg oral tablet (19 sources)Nonsteroidal Anti-inflammatory DrugStart: 62-22-8792bzjs 1 tablet by mouth twice daily as needed for painpolyvinyl alcohol 0.014 ml/ml / povidone 6 mg/ml ophthalmic solution (1 source)lubricating eye drops ophthalmic solution 1 drop if needed for dry eyes. ActivePotassium Bicarb-Citric Acid (Klor-Con/Ef) 25 mEq tablet, effervescent (20 sources)Start: 98-68-8328Giqbcvewv Bicarb-Citric Acid (Klor-Con/Ef) 25 mEq tablet, effervescent Active 25 MEQ PO Twice dailyMay 2023 11:00pmStart: 51-41-8676Wlaeosrzu Bicarb-Citric Acid (Klor-Con/Ef) 25 mEq tablet, effervescent Active 25 MEQ PO Twice dailyMay 2023 12:00ampotassium bicarbonate 25 meq effervescent oral tablet (20 sources)Start: 39-32-9109ulyg 1 tablet by mouth in the morningKLOR-CON/EF 25 mEq disintegrating tablet Take 1 tablet (25 mEq total) by mouth in the morning and 1tablet (25 mEq total) before bedtime. 12/14/2023 ActivePotassium Chloride (1 source)Klor-Con 10 ActiveprednisoLONE acetate 10 mg/ml ophthalmic suspension (20 sources)CorticosteroidStart: 28-24-6906czwb 1 drop(s) into the eye(s) three times daily as neededStart: 34-31-6914mchn 1 drop(s) into the eye(s) three times daily as neededPrednisolone Acetate (Pred Forte) 1 % drops,suspension Active 1 DROPS EYE-RIGHT Three times daily as needed for iritis April 02, 2024 12:00am Start: 92-62-9526oapihqqrTIOT acetate (PRED FORTE) 1 % ophthalmic suspension 08/22/2023 ActiveStart: 59-98-5727zlbiirzbIEGP Oral, Daily, Refills(s) 0 Start Date: 05/09/23 Status: Ordered Repeat number: 1Start: 01-80-3899gmfrfzemHYZL Oral, Daily, Refills(s) 0 Start Date: 05/09/23 Status: OrderedStart: 11-05-2018 End: 61-18-1877Anwcdbyoqkyb Acetate 1 % drops,suspension Discontinued 1 DROPS OPHTHALMIC As Directed as needed forIritis November 05, 2018 1:00am July 24, 2019 3:25pm taper as directed/ Right EyeStart: 11-05-2018 End: 62-17-7487Pbyebheatwyz Acetate Discontinued 1 DROPS OPHTHALMIC As Directed November 05, 2018 1:00am July 24, 2019 3:25pm taper as directed/ Right Eyetake 1 drop(s) into the eye(s) four times dailyprednisoLONE acetate (Pred- Forte) 1 % ophthalmic suspension 1 drop 4 times a day. Activetake 2 drop(s) into the eye(s) four times daily as neededPred Forte 1 % 2 drops into affected eye Ophthalmic Four times a day PRN ActiveprednisoLONE Acetate P-F 1 % Ophthalmic Suspension as directed Quantity: 0 Refills: 0 Ordered: 30-Mar-2023 DO Active predniSONE 20 mg oral tablet (20 sources)Start: 09-24-2024 End: 55-79-6941agxnxwCVHO (DELTASONE) 20 mg tablet prn 09/24/2024 Active primidone 50 mg oral tablet (20 sources)Anti-epileptic AgentStart: 01-23-2025 End: 93-58-7132qocm 2 tablets by mouth at bedtimeprimidone (Mysoline) 50 MG tablet Indications: Intention tremor Take 2 tablets (100 mg) by mouth atbedtime 60 tablet 11 01/23/2025 03/21/2025 Discontinued (Reorder)Start: 01-03-2025 End: 70-80-8949vgvy 1 tablet by mouth in the morningprimidone (MYSOLINE) 50 mg tablet 1 tablet (50 mg total). 1 po in AM 3 po at HS 02/21/2025 ActiveStart: 12-19-2024 End: 45-61-7220nslq 0.5 tablet by mouth at bedtimeprimidone (Mysoline) 50 MG tablet Indications: Intention tremor Take 0.5 tablets (25 mg) by mouth at bedtime 30 tablet 11 12/19/2024 01/03/2025 Discontinued (Reorder)Refresh Dry Eye Therapy (11 sources)Start: 84-46-0291Nnkfhiq Dry Eye Therapy Eye-Both, QID, Refill(s) 0 Start Date: 05/09/23 Status: Ordered Repeat number: 1Start: 18-04-6301Gtsduhc Dry Eye Therapy Eye-Both, QID, Refill(s) 0 Start Date: 05/09/23 Status: Ordered simvastatin 20 mg oral tablet (20 sources)HMG-CoA Reductase InhibitorStart: 07-19-2019 End: 22-67-7021rpwu 1 tablet by mouth once dailysimvastatin (ZOCOR) 20 mg tablet TAKE 1 TABLET BY MOUTH DAILY 90 tablet 3 05/27/2025 ActiveStart: 04-25-2018 End: 97-90-3578ecty 1 tablet by mouth once dailySimvastatin 10 mg tablet Discontinued 10 MG PO Daily April 25, 2018 12:00am July 19, 2019 10:31am tamsulosin hydrochloride 0.4 mg oral capsule (20 sources)alpha-Adrenergic BlockerStart: 01-03-2024 End: 82-36-9545etud 1 capsule by mouth twice dailyFlomax 0.4 mg Cap 0.4 mg = 1 cap(s), Oral, BID, X 30 day(s), # 60 cap(s), Refills(s) 0, Pharmacy: [facility]/pharmacy #[id number], 173, cm, 09/19/23 9:41:00 EDT, Height/Length Dosing, 97.5, kg, 09/19/23 9:41:00 EDT, Weight Dosing Start Date: 01/03/24 Stop Date: 02/02/24 Status: OrderedStart: 05-09-2023 End: 33-35-1587skah 1 capsule by mouth twice dailyFlomax 0.4 mg Cap 0.4 mg = 1 cap(s), Oral, BID, X 30 day(s), # 60 cap(s), Refills(s) 0, Pharmacy: [facility] [id number], 173, cm, 05/09/23 16:02:00 EDT, Height/Length Dosing, 97.5, kg, 05/09/23 16:02:00 EDT, Weight Dosing Start Date: 05/09/23 Stop Date: 06/08/23 Status: OrderedStart: 05-03-2023 End: 85-59-2576Czjwvpnshw (Flomax) 0.4 mg capsule Discontinued 0.4 MG PO Daily January 03, 2024 4:25am April 02, 2024 2:36pm administer 30 minutes after same meal each day until stone passesStart: 04-25-2018 End: 68-13-0606ntpf 1 capsule by mouth once dailyTamsulosin (Flomax) 0.4 mg Capsule,Extended Release 24hr Discontinued 0.4 MG PO Daily April 25, 2018 12:00am November 05, 2018 1:21pmtraMADol hydrochloride 50 mg oral tablet (20 sources)Opioid AgonistStart: 68-12-5014gjin 1 mg by mouth every six hours traMADOL 50 mg Tab mg tab(s), Oral, q6hr, Refills(s) 0 Start Date: 05/09/23 Status: Ordered Repeat number: 1Start: 11-05-2018 End: 29-06-0298olot 2 tablets by mouth every eight hours as needed for pain Start: 11-05-2018 End: 32-01-1776dpfq 100 mg by mouth every eight hoursTramadol Active 100 MG PO Q8H 0 July 26, 2019 7:13amtake 1 tablet by mouth twice dailytraMADol (Ultram) 50 mg tablet Take 1 tablet (50 mg) by mouth 2 times a day. Activetake 1 tablet by mouth every twelve hours as neededtraMADol HCl - 50 MG Oral Tablet TAKE 1 TABLET EVERY 12 HOURS NEEDED. Quantity: 0 Refills: 0 Ordered: 30-Mar-2023 DO Activetriamcinolone acetonide 0.055 mg/actuat metered dose nasal spray (20 sources)CorticosteroidStart: 90-59-3936Tuwgk: 50-85-4148Pvyhnkg -40 mg March, 10 mgurea 400 mg/ml topical cream (12 sources)Start: 01-10-2025 End: 49-05-9138fjkc (Carmol) 40 % cream Indications: Hyperkeratosis Apply 1 application topically in the morning and 1 application before bedtime. 85 g 1 01/10/2025 02/09/2025 Active Completed/Discontinued Medications MedicationDrug Class(es)DatesSig (Normalized)Sig (Original)acetaminophen 325 mg / HYDROcodone bitartrate 5 mg oral tablet (20 sources)Opioid AgonistStart: 04-09-2024 End: 04-19-4714fasx 1 tablet by mouth every six hours as needed for pain Hydrocodone-Acetaminophen 5-325 mg tablet Discontinued 1 - 2 TAB PO Every 6 hours as needed for pain 30 April 10, 2024 January 12, 2025 12:57pmStart: 05-03-2023 End: 84-41-1904bogo 1 tablet by mouth every six hours as needed for pain Hydrocodone-Acetaminophen 5-325 mg tablet Discontinued 1 - 2 TAB PO Q6H as needed for pain 15 3 January 03, 2024 March 29, 2024 11:09amStart: 05-12-2019 End: 59-80-1221cskm 1 tablet by mouth once daily at bedtime as needed for pain Hydrocodone-Acetaminophen (Ideal) 5-325 mg tablet Discontinued 1 TAB PO Daily at bedtime as needed for pain 14 14 May 12, 2019 July 19, 2019 10:35amStart: 04-25-2018 End: 68-43-1124sdbl 1 tablet by mouth every four to six hours as needed for pain Hydrocodone-Acetaminophen (Ideal) 5-325 mg tablet Discontinued 1 - 2 TAB PO EVERY 4-6 HOURS as needed for Pain May 16, 2018 November 05, 2018 1:25pm benzonatate 200 mg oral capsule (20 sources)Non-narcotic AntitussiveStart: 09-19-2024 End: 15-01-2937uijk 1 capsule by mouth three times daily as needed for cough Benzonatate 200 mg capsule Discontinued 200 MG PO Three times daily as needed for cough 10 4 September 19, 2024 12:00am January 12, 2025 12:57pm chlorhexidine gluconate 40 mg/ml medicated liquid soap (1 source)Hibiclens 4 % Externally Not-Taking/PRNciprofloxacin 500 mg oral tablet (20 sources)Quinolone AntimicrobialStart: 52-85-1047Vosdc 500 mg Tab 500 mg = 1 tab(s), Oral, As Directed, Take one tab the day before the procedure. Then take the 2nd tab after the procedure has been completed., # 2 tab(s), Refills(s) 0, Pharmacy: [facility]/pharmacy #[id number], 173, cm, 04/29/25 9:39:00 EDT, Height/Length Dosing, 99, kg, 04/29/25 9:39:00 EDT,Weight Dosing Start Date: 04/29/25 Status: Ordered Quantity: 2.0 Unit: tab(s) Repeat number: 1Start: 04-09-2024 End: 58-59-6584wiwh 1 tablet by mouth every two hoursCiprofloxacin Hcl (Cipro) 500 mg tablet Discontinued 500 MG PO Q12H April 09, 2024 12:00am May 02, 2024 9:53am administer dose at least 2 hrs before/6 hrs after dairy products, calcium, zinc, and/or iron-containing productscodeine phosphate 2 mg/ml / guaiFENesin 20 mg/ml oral solution (5 sources)Opioid AgonistStart: 09-24-2024 End: 04-46-7089tfrn 10 mL by mouth three times daily as needed for coughcodeine- guaiFENesin (guaiFENesin AC) 10-100 mg/5 mL liquid Indications: Upper respiratory tract infection, unspecified type Take 10 mL by mouth 3 (three) times a day as needed for cough. 120 mL 09/24/2024 12/17/2024 Discontinued (Therapy completed)colchicine 0.6 mg oral tablet (20 sources)Start: 12-19-2023 End: 85-27-4122cxns 1 tablet by mouth once daily in the morningColchicine 0.6 mg tablet Discontinued 0.6 MG PO Every morning April 02, 2024 12:00am September 10:04amStart: 09-30-2023 End: 46-99-8655exbr 1 capsule by mouth in the morningcolchicine (MITIGARE) 0.6 mg capsule Take 1 capsule (0.6 mg total) by mouth in the morning. 09/30/2023 09/24/2024 Discontinued (Therapy completed)Colchicine 0.6 MG 5 mL Orally Active cyclobenzaprine hydrochloride 10 mg oral tablet (20 sources)Muscle RelaxantStart: 05-12-2019 End: 68-47-4694pars 1 tablet by mouth three times daily as needed for pain Cyclobenzaprine 10 mg Tablet Discontinued 10 MG PO Three times daily as needed for Pain May 12, 2019 12:00am July 26, 2019 8:09amdiazePAM 5 mg oral tablet (20 sources)BenzodiazepineStart: 07-26-2019 End: 12-16-9585fvvr 1 tablet by mouth four times daily as needed for muscle spasmsDiazepam 5 mg Tablet Discontinued 5 MG PO Four times daily as needed for Muscle Spasm 19 09July 26, 2019 12:00am March 31, 2023 8:41amdoxycycline hyclate 100 mg oral tablet (20 sources)Tetracycline-class DrugStart: 05-16-2018 End: 76-22-6568yvxu 1 tablet by mouth twice dailyDoxycycline Hyclate 100 mg tablet Discontinued 100 MG PO Twice daily 08 25July 10, 2018 12:00amDecember 2017 1:17pmEffervescent Potassium 25 mEq oral tablet (9 sources)Start: 09-11-2024 End: 97-24-8403tzhg 1 tablet by mouth twice dailyEffervescent Potassium 25 mEq oral tablet 25 mEq = 1 tab(s), Oral, BID, X 90 day(s), # 180 tab(s), Refills(s) 3, Pharmacy: [facility]/pharmacy #[id number], 173, cm, 09/03/24 10:19:00 EDT, Height/Length Dosing, 98.6, kg, 09/03/24 10:19:00 EDT, Weight Dosing Start Date: 09/11/24 Stop Date: 09/06/25 Status: Ordered Quantity: 180.0 Unit: tab(s) Repeat number: 4 Start: 09-19-2023 End: 56-65-4966qmzo 1 tablet by mouth twice dailyEffervescent Potassium 25 mEq oral tablet 25 mEq = 1 tab(s), Oral, BID, X 90 day(s), # 180 tab(s), Refills(s) 3, Pharmacy: [facility]/pharmacy #[id number], 173, cm, 09/19/23 9:41:00 EDT, Height/Length Dosing, 97.5, kg, 09/19/23 9:41:00 EDT, Weight Dosing Start Date: 09/19/23 Stop Date: 09/13/24 Status: OrderedFluocinolone Cream & Emollient 0.025 % (1 source)Fluocinolone Cream & Emollient 0.025 % Externally *please review for potential _update for e-prescription and drug interaction check* Not-Taking/PRN fluticasone propionate 0.093 mg/actuat metered dose nasal spray (20 sources)CorticosteroidStart: 07-19-2019 End: 21-00-5207kful 1 spray(s) nasal route once dailyFluticasone Propionate 93 mcg/actuation Aerosol Breath Activated Discontinued 1 SPRAY INTRANASAL Daily July 19, 2019 12:00am March 31, 2023 8:40am Left nostril onlyfluticasone propionate (FLONASE) 50 mcg/actuation nasal spray 1 spray in the morning. Active take 1 spray(s) nasal route once dailyfluticasone (Flonase) 50 MCG/ACT nasal spray Administer 1 spray into each nostril Daily Shake gently. Before first use, prime pump. After use, clean tip and replace cap. Activetake 2 spray(s) nasal route once dailyfluticasone (Veramyst) 27.5 mcg/actuation nasal spray Administer 2 sprays into each nostril once daily. Tangwm13 hr guaiFENesin 600 mg / pseudoephedrine hydrochloride 60 mg extended release oral tablet (20 sources)alpha-Adrenergic Agonist End: 25-53-9266epij 1 tablet by mouth every twelve hourspseudoephedrine- guaiFENesin ER (Mucinex D) 60-600 MG 12 hr tablet Take 1 tablet by mouth every 12 (twelve) hours 03/21/2025 Discontinued End: 47-05-6393ddoomprwhafocwd-guaiFENesin (MUCINEX D) 60-600 mg per 12 hr tablet 02/25/2025 Discontinued (Therapycompleted)Hexachlorophene (1 source)Phisohex *please review for potential _update for e-prescription and drug interaction check* Not-Taking/PRNHYDROmorphone hydrochloride 4 mg oral tablet (20 sources)Opioid AgonistStart: 04-29-2018 End: 61-52-1478jdbv 1 tablet by mouth every six hours as needed for pain Hydromorphone (Dilaudid) 4 mg tablet Discontinued 4 MG PO Q6H as needed for pain April 29, 2018 November 05, 2018 1:25pmketorolac tromethamine 10 mg oral tablet (7 sources)Nonsteroidal Anti-inflammatory Drug, Cyclooxygenase InhibitorStart: 73-12-9980narp 1 tablet by mouth twice daily as needed for painketorolac 10 mg Tab 10 mg = 1 tab(s), Oral, BID, PRN for pain, Take one tab by mouth up to twice daily for pain., # 30 tab(s), Refills(s) 0, Pharmacy: [facility] [id number], 173, cm, 05/09/23 16:02:00 EDT, Height/Length Dosing, 97.5, kg, 05/09/23 16:02:00 EDT, Weight Dosing Start Date: 05/09/23 Status: OrderedlevoFLOXacin 500 mg oral tablet (20 sources)Quinolone AntimicrobialStart: 01-03-2024 End: 35-86-0106ofux 1 tablet by mouth once dailyLevofloxacin 500 mg tablet Discontinued 500 MG PO Daily 5 January 03, 2024 1:00am March 29, 2024 11:11amMethotrexate Sodium (Pf) 50 mg recon soln (13 sources)Start: 02-15-2025 End: 98-70-3617Upyedioathea Sodium (Pf) 50 mg recon soln Discontinued 50 MG .Route .weekly February 15, 2025 12:00am February 16, 2025 3:00pmnitroglycerin 0.4 mg sublingual tablet (20 sources)Nitrate VasodilatorStart: 03-31-2023 End: 61-22-3930pvfz 1 tablet under the tongue once daily as needed for pain Nitroglycerin 0.4 mg tablet, sublingual Discontinued 0.4 MG SUBLINGUAL Daily as needed for Chest Pain March 31, 2023 12:00am January 12, 2025 12:56pmStart: 94-15-4878Nfxrmhawnikvt 0.[address]ual Tablet Sublingual [address] 1 TABLET UNDER THE TONGUE EVERY 5 MINUTES FOR UP TO 3 DOSES NEEDED FOR CHEST PAIN.CALL 911 IF PAIN PERSISTS. Quantity: 1 Refills: 0 Ordered:30-Mar-2023 Alfonso Trujillo DO Start : 30-Mar-2023 Active new startomeprazole 20 mg delayed release oral capsule (20 sources)Proton Pump InhibitorStart: 02-25-2025 End: 08-11-5295xqwr 1 capsule by mouth in the morningomeprazole (PriLOSEC) 20 mg capsule Take 1 capsule (20 mg total) by mouth in the morning. 02/25/2025 04/16/2025 Discontinued (Dose adjustment)Start: 10-23-2022 End: 35-63-2297cngw 1 capsule by mouth twice dailyStart: 74-33-0752cqdu 1 mg by mouth once dailyomeprazole 40 mg Cap-DR mg cap(s), Oral, Daily, Refills(s) 0 Start Date: 05/09/23 Status: Ordered Repeat number: 1Start: 04-25-2018 End: 11-76-7127ktwg 2 capsules by mouth once daily in the morningOmeprazole 20 mg capsule,delayed release(DR/EC) Discontinued 40 MG PO Every morning April 25, 2018 12:00am February 16, 2025 3:00pmStart: 71-75-4058ibrr 40 mg by mouth once daily in the morningOmeprazole Active 40 MG PO Every morning April 25, 2018 12:00amStart: 66-93-2914jsan 20 mg by mouth twice dailyOmeprazole Active 20 MG PO Twice daily April 25, 2018 12:00amondansetron 4 mg disintegrating oral tablet (20 sources)Serotonin-3 Receptor AntagonistStart: 05-03-2023 End: 16-24-7329xsyz 1 tablet by mouth every eight hours as needed for nausea and vomitingOndansetron 4 mg tablet,disintegrating Discontinued 4 MG PO Q8H as needed for nausea and vomiting January 03, 2024 4:25am March 29, 2024 11:10amStart: 04-25-2018 End: 91-60-6587Yokaumecvcj (Zofran Odt) 4 mg Tablet,Disintegrating Discontinued 4 MG PO EVERY 8-12 HOURS as neededfor Nausea And Vomiting April 25, 2018 12:00am November 05, 2018 1:20pmVitamin B Complex (1 source)Vitamin B Complex - as directed Orally Not-Taking/PRNVitamin D 1000 UNIT (1 source)take 1 tablet by mouth once daily as neededVitamin D 1000 UNIT 1 tablet Orally Once a day *please review for potential _update for e-prescription and drug interaction check* Not-Taking/PRNvitamin e d-alpha 400 unt oral capsule (1 source)take 1 capsule by mouth every twenty-four hoursVitamin E 400 UNIT 1 capsule Orally Once a day for 30 day(s) Not-Taking/PRN Problems Active Problems Problem ClassificationProblemDateDocumented DateEpisodic/ChronicAbdominal hernia (1 source)Hiatal hernia; Translations: [Diaphragmatic hernia without obstruction or gangrene]EpisodicAcquired foot deformities (3 sources)Pronation deformity of the foot; Translations: [Other acquired deformities of right foot]01-04-7414QxtilaqxEmzpc and unspecified renal failure (20 sources)Injury of kidney; Translations: [Acute kidney failure, unspecified] Onset: 614747-40-3447BbuahzilPxnqwf (2 sources)Moderate persistent asthma; Translations: [Moderate persistent asthma, uncomplicated]Onset: 287175-28-2811AqjfntnIcpqymt dysrhythmias (20 sources)Multiple premature ventricular complexes; Translations: [Ventricular premature depolarization]Onset: 321341-92-5929UxyceagQaoxjnfglvc and hemorrhagic disorders (20 sources)Lupus anticoagulant disorder; Translations: [Primary hypercoagulable state]Onset: 823216-19-3166OmfsoczBboizufj atherosclerosis and other heart disease (1 source)Atherosclerotic heart disease of [place] coronary artery without angina pectoris; Translations: [ASHD YSLETA DEL SUR CA W/O ANGINA PECTORIS]Onset: 03-28-2023 ChronicDiseases of white blood cells (20 sources)Leukocytosis; Translations: [Elevated white blood cell count, unspecified]Onset: 821425-01-1864EwioyvsMxvjzyiau of lipid metabolism (20 sources)Hyperlipidemia, unspecified; Translations: [Hyperlipidemia]Onset: 644025-97-3234AgqdzjeX Codes: Fall (20 sources)Fall from chair, initial encounter; Translations: [Fall]Onset: 382890-70-2663VefruxrfI Codes: Fall (1 source)FallOnset: 71-22-6041Potmokrymg disorders (1 source)Diffuse spasm of esophagus; Translations: [Dyskinesia of esophagus] ChronicEsophageal disorders (1 source)Esophagitis; Translations: [Esophagitis, unspecified]EpisodicEssential hypertension (20 sources)Essential (primary) hypertension; Translations: [Hypertensive disorder]Onset: 052022-95-2429ElwxfcuNouuwyxnibokp symptoms and ill- defined conditions (1 source)Incontinence without sensory awareness; Translations: [Incontinence without sensory awareness]Onset: 31-84-2951HuouzklJymjdhwe; including migraine (20 sources)Cluster headache; Translations: [Cluster headache syndrome, unspecified, not intractable]Onset: 692318-40-4339AgkvaxcKliuaxam; including migraine (3 sources)Headache; Translations: [Cervicogenic headache]Onset: 01-29-2025 25-81-8188OzqaijyqDjqtiikaeel of prostate (20 sources)Benign prostatic hypertrophy without outflow obstruction; Translations: [Benign prostatic hyperplasia without lower urinary tract symptoms]Onset: 44-60-2549FblgxzwIlxubwr (8 sources)Pain in toe; Translations: [Tinea unguium]32-60-4779Qimjympr Osteoarthritis (20 sources)Osteoarthritis; Translations: [Arthritis]Onset: 665766-71-4839 ChronicOsteoporosis (20 sources)Osteoporosis; Translations: [Age-related osteoporosis without current pathological fracture]Onset: 719871-76-4167OutsluoWvhcx acquired deformities (7 sources)Contracture of joint of right ankle; Translations: [Contracture, right ankle]60-27-2722ZvmlqnaHkpbs acquired deformities (20 sources)Spondylolisthesis, lumbar region; Translations: [Spondylolisthesis] 87-06-8055LkutqslhDielf acquired deformities (11 sources)Acquired unequal leg length; Translations: [Unequal limb length (acquired), unspecified site]29-12-4267EynxcwhnHqbhi aftercare (1 source)Other shelter (current) drug therapy; Translations: [OTH HALFWAY CURRENT DRUG THERAPY]Onset: 26-93-4078PoimaouaFiypr aftercare (1 source)meterman (current) use of aspirin; Translations: [HALFWAY CURRENT USE OF ASPIRIN]Onset: 36-17-1018SbmtsrziJxbmk aftercare (1 source)High risk drug monitoring status; Translations: [meterman (current) use of opiate analgesic]EpisodicOther aftercare (3 sources)Post-discharge follow-up; Translations: [Encounter for follow-up examination after completed treatment for conditions other than malignant neoplasm]Onset: 022431-97-7223VyhdjwntUuqbx aftercare (1 source)Encounter for follow-up examination after completed treatment for conditions other than malignant neoplasm; Translations: [Encounter for follow-up examination after completed treatment for conditionsother than malignant neoplasm]Onset: 89-86-6036RjqeaxrcDyepf bone disease and musculoskeletal deformities (6 sources)Bilateral exostosis of foot; Translations: [Other specified disorders of bone, ankle and foot]17-87-8080ZlsilvpjIgkjb congenital anomalies (20 sources)Cleft palate with cleft lip; Translations: [Unspecified cleft palate with unilateral cleft lip]Onset: 904569-21-2188ZbmgkhmIqscy congenital anomalies (20 sources)Cleft palate; Translations: [Cleft palate, unspecified]Onset: 162670-21-6629ZphwzyuSywfi connective tissue disease (2 sources)Pain of toes of bilateral feet; Translations: [Pain in right toe(s)] 62-27-1510JztkwnttUmncj connective tissue disease (20 sources)Trochanteric bursitis; Translations: [Trochanteric bursitis, right hip]20-95-3608SjyhicdpNodap connective tissue disease (9 sources)Tenosynovitis; Translations: [Tenosynovitis of right lower leg] 85-77-3325LtrjhxthHxxjh connective tissue disease (16 sources)Iliotibial band friction syndrome of right knee; Translations: [Iliotibial band syndrome, right leg]00-87-7674YwulryurHsdsf connective tissue disease (1 source)Pain of right lower leg; Translations: [Pain in right lower leg] 27-01-2852BfwfumwpHxdpj diseases of bladder and urethra (3 sources)Detrusor overactivity; Translations: [Overactive bladder]Onset: 85-88-6379YlbhruaGwtlo diseases of bladder and urethra (3 sources)Overactive ekqwfbc48-65-7760GyfaxipIwldi diseases of kidney and ureters (1 source)Hydronephrosis with renal and ureteral calculous obstruction; Translations: [Hydronephrosis with renal and ureteral calculous obstruction] Onset: 77-38-7999BwdakhfkEsmmh diseases of kidney and ureters (3 sources)Urinary tract obstruction; Translations: [Hydronephrosis with renal and ureteral calculous obstruction]Onset: 94-74-5835XfebtgouRqvrw diseases of veins and lymphatics (9 sources)Lymphedema; Translations: [Lymphedema, not elsewhere classified] 35-37-5380SozwhcxGnlax diseases of veins and lymphatics (10 sources)Lymphedema of bilateral lower limbs; Translations: [Lymphedema, not elsewhere classified]73-94-3728TwilvtkIcyhp diseases of veins and lymphatics (3 sources)Lymphedema, not elsewhere classified; Translations: [Other lymphedema]70-67-3268GehjynaIjjbb ear and sense organ disorders (20 sources)Decreased hearing ; Translations: [Unspecified hearing loss, bilateral]Onset: 442059-74-3309EyidnkjWurqv ear and sense organ disorders (20 sources)Hearing loss; Translations: [Unspecified hearing loss, unspecified ear]Onset: 647537-47-8814ForeoytKuwfr hereditary and degenerative nervous system conditions (20 sources)Intention tremor; Translations: [Other specified forms of tremor] Onset: 749497-62-6439PundanzDjcmt hereditary and degenerative nervous system conditions (1 source)Other specified forms of tremor; Translations: [Other specified forms of tremor]Onset: 57-11-6055RfcimbqJugeh inflammatory condition of skin (6 sources)Lupus vlsdqucfwxpir26-91-7092UjwyaloQkdwq injuries and conditions due to external causes (4 sources)Injury of right lower leg; Translations: [Other injury of other muscle(s) and tendon(s) at lower leg level, right leg, initial encounter] 65-32-0519RshxxliuFxlke injuries and conditions due to external causes (4 sources)Other injury of other muscle(s) and tendon(s) at lower leg level, right leg, initial encounter; Translations: [Sprains and strains of unspecified site of knee and leg]20-41-7538WdwhbvfuDkqcq lower respiratory disease (1 source)Other forms of dyspnea; Translations: [OTHER FORMS OF DYSPNEA]Onset: 04-51-7907UvvqgtnuAfeig lower respiratory disease (3 sources)Dyspnea on exertion; Translations: [Shortness of breath]EpisodicOther lower respiratory disease (20 sources)Dyspnea; Translations: [Shortness of breath]Onset: 10-15-2024 32-80-4695MmfticluJkryw lower respiratory disease (20 sources)Cough; Translations: [Cough]Onset: 781121-12-0283XtlbjvrpBkpan nervous system disorders (20 sources)Piriformis syndrome; Translations: [Lesion of sciatic nerve, unspecified lower limb]Onset: 055636-83-0218LsyekfiWnsyd nervous system disorders (20 sources)Chronic pain; Translations: [Other chronic pain]Onset: 05-28-2024 76-46-8666VznmudyGknjp nervous system disorders (3 sources)Carpal tunnel syndrome of left wrist; Translations: [Carpal tunnel syndrome, left upper limb]ChronicOther nervous system disorders (1 source)Carpal tunnel syndrome of right wrist; Translations: [Carpal tunnel syndrome, right upper limb]ChronicOther nervous system disorders (20 sources)Lesion of ulnar nerve, right upper limb; Translations: [Lesion of ulnar nerve]Onset: 75-78-2118ClhgitpFbjrt nervous system disorders (20 sources)Compression neuropathy of upper limb; Translations: [Lesion of ulnar nerve, right upper limb]Onset: 115285-31-7885PcludusHgxag nervous system disorders (20 sources)Other chronic pain; Translations: [Other chronic pain]04-11-2024 ChronicOther nervous system disorders (20 sources)Carpal tunnel syndrome; Translations: [Carpal tunnel syndrome, unspecified upper limb]Onset: 844067-45-7535TsfbqutEfdla nervous system disorders (20 sources)Luo's metatarsalgia; Translations: [Lesion of plantar nerve, unspecified lower limb]Onset: 047945-56-9901RkymnkfNivpr nervous system disorders (4 sources)Right-sided piriformis syndrome; Translations: [Lesion of sciatic nerve, right lower limb]88-80-8834UcmkgnqBgrmv nervous system disorders (2 sources)Polyneuropathy; Translations: [Polyneuropathy, unspecified]05-15-2025 ChronicOther nervous system disorders (2 sources)Neuropathy; Translations: [Polyneuropathy, unspecified]07-17-2025 ChronicOther nervous system disorders (1 source)Polyneuropathy, unspecified; Translations: [Polyneuropathy, unspecified]Onset: 31-43-9588RuhklqqQtzjt nervous system disorders (20 sources)Finding of hand region; Translations: [Tremor, unspecified]Onset: 261503-93-2126LotntbufQllty nervous system disorders (8 sources)Tremor, unspecified; Translations: [Abnormal involuntary movements] 31-50-0440OcjgldvxLmsbo non-traumatic joint disorders (1 source)Pain in right knee; Translations: [Pain in joint, lower leg]12-28-2023 EpisodicOther non-traumatic joint disorders (20 sources)Hip pain; Translations: [Pain in right hip]Onset: 10-15-2024 96-39-7335FammfrmbKcqyj non-traumatic joint disorders (20 sources)Instability of right hip joint; Translations: [Other instability, right hip]47-51-2320NepollyrCllik non-traumatic joint disorders (18 sources)Effusion of right knee joint; Translations: [Effusion, right knee] 00-22-6361UlotbjwhDbmfr nutritional; endocrine; and metabolic disorders (1 source)Obesity, unspecified; Translations: [OBESITY UNSPECIFIED]Onset: 22-39-4617WzrerjqIqare nutritional; endocrine; and metabolic disorders (2 sources)Body mass index (BMI) 33.0-33.9, adult; Translations: [BODY MASS INDEX BMI 33.0-33.9 ADULT]Onset: 26-86-0370YsitibkZmsge nutritional; endocrine; and metabolic disorders (3 sources)Obesity; Translations: [Obesity, unspecified]ChronicOther nutritional; endocrine; and metabolic disorders (3 sources)Body mass index 30+ - obesity; Translations: [Body mass index (BMI) 31.0-31.9, adult]Onset: 608131-95-4722RulairpXfptk nutritional; endocrine; and metabolic disorders (20 sources)Obesity caused by energy imbalance; Translations: [Class 1 obesity due to excess calories with serious comorbidity and body mass index (BMI) of 33.0 to 33.9 in adult]Onset: 867893-16-8892HiwhvlgKdghk nutritional; endocrine; and metabolic disorders (4 sources)Severe obesity; Translations: [Class 2 severe obesity due to excess calories with serious comorbidity and body mass index (BMI) of 35.0 to 35.9 in adult ([facility])]Onset: 008583-74-8818NniefhlSkmdp nutritional; endocrine; and metabolic disorders (1 source)Other obesity due to excess calories; Translations: [Other obesity due to excess calories]Onset: 31-35-9550CmgtwveSmgrw nutritional; endocrine; and metabolic disorders (2 sources)Body mass index (BMI) 34.0-34.9, adult; Translations: [Body mass index (BMI) 34.0-34.9, adult]Onset: 32-58-8298HnhsxnqGnvpg skin disorders (3 sources)Fissure in skin; Translations: [Changes in skin texture]01-10-2025 EpisodicOther skin disorders (8 sources)Asteatosis cutis; Translations: [Xerosis cutis]15-11-1291Ptxxvjlh Other upper respiratory disease (20 sources)Allergic rhinitis; Translations: [Allergic rhinitis, unspecified] Onset: 821752-29-2244AnypoccTkafvthr codes; unclassified (4 sources)Hypersomnia with sleep apnea; Translations: [Hypersomnia, unspecified]17-14-2855YiyezrpXjlbghxp codes; unclassified (1 source)Postprocedural state finding; Translations: [Other specified postprocedural states]EpisodicResidual codes; unclassified (1 source)Other specified postprocedural statesEpisodicResidual codes; unclassified (19 sources)History of operative procedure on lumbar spinal structure; Translations: [Other specified postprocedural states]42-65-8057Bcrhkwjx Rheumatoid arthritis and related disease (20 sources)Rheumatoid arthritis; Translations: [Rheumatoid arthritis]Onset: 144088-70-4749YjsmzfcWbkmxlrfo and history of mental health and substance abuse codes (10 sources)Personal history of nicotine dependence; Translations: [Ex-smoker] Onset: 441343-20-7332SebuztkuUebzrpu on above:quit in the ; Spondylosis; intervertebral disc disorders; other back problems (20 sources)Degeneration of cervical intervertebral disc; Translations: [Other cervical disc degeneration, unspecified cervical region]Onset: 05-28-2024 20-17-5657VvqnngcOijaqng (18 sources)Syncope; Translations: [Syncope and collapse]Onset: 06-11-2025 72-92-8782NthqytgrKbuhzbnh lupus erythematosus and connective tissue disorders (20 sources)Systemic lupus erythematosus, unspecified; Translations: [Autoimmune connective tissue disorder]Onset: 566504-59-8688XjiwugoAktrlhf disorders (2 sources)Thyroid nodule; Translations: [Nontoxic single thyroid nodule] 47-67-9968GbrafrbMkipcufcejhb (1 source)Unknown / UNK(Unknown)Onset: 21-09-8781Jbpctjjvutov (1 source)Low back pain, unspecified; Translations: [Low back pain, unspecified] Onset: 75-28-9045Rzwnxzswktzz (7 sources)Patient encounter fouhok06-69-6610Dqbikyjwdtit (7 sources)A [facility] screening has identified you as FRAIL [...] Ways to Beat the Frailty Risk [email or web address]/cffm-ysibof-xdmw- flvi-pp-qzrl-the-fra gcar-[email or web address]fxbu (1 source)tcmOnset: 46-62-7709Cdmruaxnxzuh (1 source)Obesity, class 1; Translations: [Obesity, class 1]Onset: 12-14-2023 Unclassified (1 source)Cough, unspecified; Translations: [Cough, unspecified]Onset: 09-19-2024 Past or Other Problems Problem ClassificationProblemDateDocumented DateEpisodic/ChronicCalculus of urinary tract (20 sources)Calculus of ureter; Translations: [Calculus of ureter]Onset: 887178-90-6323NljfujrfEcggfd; other and unspecified primary (20 sources)Malignant neoplasm of eye; Translations: [Malignant neoplasm of unspecified site of unspecified eye]Onset: 05-28-2024 Resolved: 162108-60-5988SfpvadkSizjvm; other and unspecified primary (20 sources)Squamous cell carcinoma of cornea; Translations: [Malignant neoplasm of unspecified cornea]Onset: 11-21-2013 Resolved: 419982-96-8520ZfeuoydNpepdjabwc associated with dizziness or vertigo (1 source)DizzinessOnset: 56-57-2739KkceckcxBqutncoxdwrxs symptoms and ill- defined conditions (20 sources)Blood in urine; Translations: [Gross hematuria]Onset: 06-02-2023 EpisodicInflammation; infection of eye (except that caused by tuberculosis or sexually transmitteddisease) (20 sources)Iritis; Translations: [Unspecified iridocyclitis]Onset: 05-28-2024 62-27-6053DccfsddkZwym disorders (20 sources)Mood disordersOnset: 09-24-2024 Resolved: 503740-57-0239Wtntlnccs of unspecified nature or uncertain behavior (20 sources)Conjunctival intraepithelial neoplasia; Translations: [Neoplasm of unspecified behavior of other specified sites]Onset: EpisodicNonspecific chest pain (20 sources)Other chest pain; Translations: [Chest pain]Onset: 03-20-2023 EpisodicOther acquired deformities (20 sources)Lumbar spondylolisthesis; Translations: [Spondylolisthesis, lumbar region]Onset: 727910-14-0222TkknvaoeJrjxk bone disease and musculoskeletal deformities (9 sources)Somatic dysfunction of thoracic region; Translations: [Segmental and somatic dysfunction of thoracic region]Onset: 597918-82-6184PtyfpxhvHlunz bone disease and musculoskeletal deformities (1 source)Segmental and somatic dysfunction of thoracic region; Translations: [Segmental and somatic dysfunction of thoracic region]Onset: 80-25-7237Pihrbetf Other connective tissue disease (20 sources)Right rotator cuff syndrome; Translations: [Unspecified rotator cuff tear or rupture of right shoulder, not specified as traumatic]Onset: 11-21-2008 93-42-8213AviklcidSlztt connective tissue disease (19 sources)Trochanteric bursitis, right hip; Translations: [Enthesopathy of hip region]Onset: 977060-07-9892EhkgehdwPfgof connective tissue disease (2 sources)Other symptoms and signs involving the musculoskeletal system; Translations: [Other musculoskeletalsymptoms referable to limbs]Onset: 454724-08-9721AbcsqbqdAhnbr connective tissue disease (13 sources)Iliotibial band syndrome, right leg; Translations: [Other disorders of muscle, ligament, and fascia]Onset: 980389-05-5246YmfsmkkmFrqyj diseases of kidney and ureters (20 sources)Hydronephrosis; Translations: [Unspecified hydronephrosis]Onset: 682216-35-6264ZjmvdzwbGotig gastrointestinal disorders (20 sources)Dysphagia; Translations: [Dysphagia, unspecified]Onset: 05-28-2024 58-21-5153LnwfstozByhko injuries and conditions due to external causes (1 source)Other specified injuries of head, initial encounter; Translations: [OTH SPEC INJURIES HEAD INITIAL ENC]Onset: 02-19-8735MijdwdyoNptnx lower respiratory disease (6 sources)Shortness of breath; Translations: [Shortness of breath]Onset: 133000-10-4088ImuyhijaFtgfu nervous system disorders (1 source)Paresthesia; Translations: [Paresthesia of skin]80-78-1191Gsctdsiq Other non-traumatic joint disorders (1 source)Effusion, right knee; Translations: [Effusion, right knee]Onset: 64-26-1279DifeeckjTzybx non-traumatic joint disorders (1 source)Other instability, right hip; Translations: [Other instability, right hip]Onset: 61-70-0991UfdmcxvpHmpov non-traumatic joint disorders (1 source)Pain in right hip; Translations: [Pain in right hip]Onset: 11-05-2024 EpisodicOther nutritional; endocrine; and metabolic disorders (20 sources)Body mass index 25-29 - overweight; Translations: [Overweight]Onset: 01-20-2017 Resolved: 096579-49-2173VvhovykhHggvd screening for suspected conditions (not mental disorders or infectious disease) (20 sources)Abnormal electrocardiogram [ECG] [EKG]; Translations: [Encounter for screening for malignant neoplasm of prostate]Onset: 61-24-2927LdukckgjZnsxu skin disorders (20 sources)Actinic keratosis; Translations: [Actinic keratosis]Onset: 424361-91-8811AlurocamEerud upper respiratory disease (1 source)Hoarse; Translations: [Dysphonia]13-32-3061IckqucujBcnlk upper respiratory infections (2 sources)Upper respiratory infection; Translations: [Acute upper respiratory infection, unspecified]31-43-4607UgibyoneLlhtnp media and related conditions (2 sources)Perforation of right tympanic membrane; Translations: [Unspecified perforation of tympanic membrane, right ear]Onset: 715901-66-1722Hzveombh Skin and subcutaneous tissue infections (2 sources)Cellulitis of right lower limb; Translations: [Cellulitis of right lower limb]Onset: 524989-79-5023WjfffzmpKljqxtymhia; intervertebral disc disorders; other back problems (20 sources)Lumbar radiculopathy; Translations: [Radiculopathy, lumbar region] Onset: 831526-82-8580DskukhcuSjieqzo and strains (20 sources)Sprain of joints and ligaments of unspecified parts of neck, initial encounter; Translations: [Glenoid labrum tear]Onset: EpisodicSuperficial injury; contusion (5 sources)Contusion of right upper arm, initial encounter; Translations: [Abrasion, right lower leg, subsequent encounter]Onset: EpisodicThyroid disorders (20 sources)Mass of thyroid gland; Translations: [Other specified disorders of thyroid]Onset: 830929-37-4255SercwpraDbnjsoxtdaxx (1 source)Lumbar pain M54.50Unclassified (3 sources)Onset: Results Test NameValueInterpretationReference RangeFacilityUrology Office/Clinic Noteon 25-90-0798Ten[place] Office/Clinic NoteUrology Office/Clinic Note Chief Complaint Difficulty urinating HPI [...] with voice recognition artificial intelligence software, specifically Lattice Engines, Eons and or Icarus Ascending. Substitutions may have occurred due to the [...] Urnls Dip Stick Auto w/o Microscopy POC 80451 2. Incomplete bladder emptying (R33.9: Retention of urine, unspecified) PVR today 69 ml emptying well, see #1 Ordered: 1126F Pain severity quantified; no pain present 56739 Measure Post Void residual urine and/or bladder [...] Urnls Dip Stick Auto w/o Microscopy POC 59384 3. OAB (overactive bladder) (N32.81: Overactive bladder) [...] stones. A stone overlying the RUP 3 mmwhich probably correlates w/the renal stone seen previously [...] FLAVIO ONEAL, Zac De Oliveira, URL [address] [id number]- Additional Instructions: TURP Patient Education Benign Prostatic Hyperplasia Acute Urinary Retention, Male Problem List/Past Medical History Ongoing Arthritis BPH with obstructio (more content not included)...[facility] HospitalComment on above:Result Comment: Electronically Signed By: FRANCIS Jimenez APRN, Daria Lechuga\.br\Date and Time Signed: 08/13/25 08:45 EDTAlanine aminotransferase [Enzymatic activity/volume] in Serum or PlasmaOrdered By: Christine Sanchez on 63-08-8969TWB [Catalytic activity/Vol]26 U/LNormal7-52[facility] HospitalComment on above:Performed By: #### ESR #### [facility] [address] [place] [address] USAAlbumin [Mass/volume] in Serum or Plasma by Bromocresol green (BCG) dye binding methoOrdered By: Christine Sanchez on 84-24-7637Irpfbqv BCG dye [Mass/Vol]4.1 g/dL3.5-5.7FKindred Hospital DaytonAlkaline phosphatase [Enzymatic activity/volume] in Serum or PlasmaOrdered By: Christine Sanchez on 24-03-0738STB [Catalytic activity/Vol]87 U/KHkblhy91-646AcafprwzoOhio State East HospitalComment on above:Result Comment: PERFORMED BY: [place] [address] PATHOLOGIST SHELLFISH CHECKER LANIE ALVARES M.D.Performed By: #### ESR #### [facility] [address] [place] [address] USAAppearance of UrineOrdered By: Christine Sanchez on 25-74-8371Zscemobqfx (U)ClearNormalClearOhio State East HospitalComment on above:Order Comment: Name Collection Type:: Clean-Voided MidstreamPerformed By: #### ESR #### [facility] [address] [place] [address] USAAspartate aminotransferase [Enzymatic activity/volume] in Serum or PlasmaOrdered By: Christine Sanchez on 23-14-4472KXC [Catalytic activity/Vol]16 U/ZEpfmnb04-24XimwobqpjOhio State East HospitalComment on above: Performed By: #### ESR #### [facility] [address] [place] [address] USABacteria [Presence] in Urine by AutomatedOrdered By: Christine Sanchez on 21-13-5566Vwbvowyq Auto Ql (U)None seen [HPF]None SeenOhio State East HospitalBasophils [#/volume] in Blood by Automated countOrdered By: Christine Sanchez on 80-96-6124Ylclqkuzt (Bld) [#/Vol]0.1 10*3/uLNormal0.0-0.2 [facility] HospitalComment on above:Performed By: #### ESR #### [facility] [address] [place] [address] USABasophils/100 leukocytes in Blood by Automated count Ordered By: Christine Sanchez on 33-40-2861Ngbnuzjqd/100 WBC (Bld)0.6 %Normal. [facility] HospitalComment on above:Performed By: #### ESR #### [facility] [address] [place] [address] USABilirubin Test strip Ql (U)Ordered By: Christine Sanchez on 98-70-3624Ltukgkhlo Ql (U)NegativeNegativeOhio State East Hospital Bilirubin.total [Mass/volume] in Serum or PlasmaOrdered By: Christine Sanchez on 39-44-3876Nxozdgwce [Mass/Vol]0.5 mg/dLNormal0.3-1.0[facility] HospitalComment on above:Performed By: #### ESR #### [facility] [address] [place] [address] USACalcium [Mass/volume] in Serum or PlasmaOrdered By: Christine Sanchez on 47-90-0011Mjhbtfq [Mass/Vol]9.2 mg/dLNormal8.6-10.3FKindred Hospital DaytonComment on above:Performed By: #### ESR #### [facility] [address] [place] [address] USACarbon dioxide, total [Moles/volume] in Serum or Plasma Ordered By: Christine Sanchez on 28-53-1342XH6 [Moles/Vol]23.9 mmol/LNormal 21.0-31.0[facility] HospitalComment on above:Performed By: #### ESR #### [facility] [address] [place] [address] USAChloride [Moles/volume] in Serum or PlasmaOrdered By: Christine Sanchez on 40-17-6342Txfnczjk [Moles/Vol]106 mmol/XTgraqw77-421XtgdrfltjOhio State East HospitalComment on above:Performed By: #### ESR #### [place] [address] USAColor of Urine by AutoOrdered By: Christine Sanchez on 42-67-5607Zdrhb (U)YellowNormalYellowOhio State East HospitalComment on above:Order Comment: Name Collection Type:: Clean-Voided MidstreamPerformed By: #### ESR #### [place] [address] USAComplement C3on 42-86-7830Anqrylzipd C3125 mg/dLNormal 82-167The [facility] Physician GroupComment on above:Result Comment: Performed at: - [facility] [address] [id number] [employer] Counter Clerk: Richy Ardon PhD, Phone: [phone] By: #### CRP #### [place] [address] USAComplement C4on 28-19-1775Nvhrqauxii C413 mg/pXNwoppe97-94 [facility] Physician GroupComment on above:Result Comment: PERFORMED BY: [place] [address] PATHOLOGIST SHELLFISH CHECKER LANIE ALVARES M.D.Performed By: #### CRP #### [place] [address] USAComplement Total (CH50)on 66-41-1529Txjsszaymx Total (CH50)58Normal>41The [facility] Physician GroupComment on above:Result Comment: Age Male Female 1 - 30 [...] determine out of range values. Performed at: [facility] [id number] [employer] Counter Clerk: Richy Ardon PhD, Phone: [phone] PERFORMED BY: [place] [address] PATHOLOGIST SHELLFISH CHECKER LANIE ALVARES M.D.Performed By: #### CRP #### [place] [address] USAComplete Blood Count Auto Diffon 02-23-2657Zffh Corpuscular HGB Conc34.0 g/qDBywtyr37.5-35.6The [facility] Physician GroupComment on above:Performed By: #### ESR #### [place] [address] USANRBC%0.2 /100{WBC}Normal0-0.5[facility] Comment on above:Performed By: #### ESR #### [place] [address] USAWhite Blood Count9.2 [CFU]/mLNormal4.1-10.5[facility] CenterComment on above:Performed By: #### ESR #### [place] [address] USAComprehensive Metabolic Panelon 29-39-8133Aggkozn [Mass/Vol]4.1 g/dLNormal3.5-5.7[facility] Physician GroupComment on above: Performed By: #### ESR #### [place] [address] USAGFR/1.73 sq M.predicted MDRD (S/P/Bld) [Vol rate/Area] mL/min/{1.73_m2}NormalThe [facility] Union Physician GroupComment on above:Performed By: #### ESR #### [place] [address] USACreatinine [Mass/volume] in Serum or PlasmaOrdered By: Christine Sanchez on 21-97-4259Vpnekibpdb [Mass/Vol]0.88 mg/dLNormal0.70-1.30 [facility] HospitalComment on above:Performed By: #### ESR #### [place] [address] USADipstick and Microscopicon 98-51-4129Gkjcnkxe,UrineNone SeenNormalNone SeenAdventhealth Winter Garden Physician [facility] CenterComment on above:Order Comment: Name Collection Type:: Clean-Voided MidstreamPerformed By: #### ESR #### [place] [address] USABilirubin,UrineNegativeNormalNegativeAdventhealth Winter Garden Physician GroupComment on above:Order Comment: Name Collection Type:: Clean- Voided MidstreamPerformed By: #### ESR #### [place] [address] USAGlucose Ql (U)NormalNormalNormalThe [facility] Physician [facility] CenterComment on above:Order Comment: Name Collection Type:: Clean-Voided MidstreamPerformed By: #### ESR #### [place] [address] USAHyaline Casts,UrineNoneNormal0-8The [facility] Physician GroupComment on above:Order Comment: Name Collection Type:: Clean-Voided MidstreamPerformed By: #### ESR #### [place] [address] USAMucus,Urine1+ [LPF]Critically abnormalThe [facility] Physician GroupComment on above:Order Comment: Name Collection Type:: Clean- Voided MidstreamResult Comment: PERFORMED BY: [place] [address] PATHOLOGIST SHELLFISH CHECKER LANIE ALVARES M.D.Performed By: #### ESR #### [place] [address] USANitrite,UrineNegativeNormalNegativeThe [facility] Physician GroupComment on above:Order Comment: Name Collection Type:: Clean-Voided MidstreamPerformed By: #### ESR #### [place] [address] USAOccult Blood,UrineNegativeNormalNegativeThe [facility] Physician GroupComment on above:Order Comment: Name Collection Type:: Clean- Voided MidstreamPerformed By: #### ESR #### [place] [address] USARBC,UrineNone SeenNormal0-4[facility] Comment on above:Order Comment: Name Collection Type:: Clean-Voided Midstream Performed By: #### ESR #### [place] [address] USASpecificy [place],Urine1.964Tluniv1.001-1.030The [facility] Physician GroupComment on above:Order Comment: Name Collection Type:: Clean- Voided MidstreamPerformed By: #### ESR #### [place] [address] USAUrobilinogen,UrineNormalNormalNormalThe [facility] Physician GroupComment on above:Order Comment: Name Collection Type:: Clean- Voided MidstreamPerformed By: #### ESR #### [place] [address] USAWBC,Tmfpf4-0Sclujr2-1Xel [facility] Physician GroupComment on above:Order Comment: Name Collection Type:: Clean-Voided MidstreamPerformed By: #### ESR #### [place] [address] USAEosinophils [#/volume] in Blood by Automated countOrdered By: Christine Sanchez on 37-63-9084Tesvsqurjvk (Bld) [#/Vol]0.1 10*3/uLNormal 0.0-0.45[facility] HospitalComment on above:Performed By: #### ESR #### [place] [address] USAEosinophils/100 leukocytes in Blood by Automated count Ordered By: Christine Sanchez on 60-27-6703Gurhvhynpvh/100 WBC (Bld)1.5 %Normal. [facility] HospitalComment on above:Performed By: #### ESR #### [place] [address] USAEpithelial cells.squamous [#/area] in Urine sediment by Automated countOrdered By: Christine Sanchez on 04-06-5468Cmguqyldrq cells.squamous Auto (Urine sed) [#/Area]N/AFKindred Hospital DaytonErythrocyte Sedimentation Rateon 78-00-9191EDA (Bld) [Velocity]6 mm/hNormal0-19The [facility] Physician GroupComment on above:Result Comment: PERFORMED BY: [place] [address] PATHOLOGIST SHELLFISH CHECKER LANIE ALVARES M.D.Performed By: #### ESR #### [place] [address] USAErythrocyte distribution width [Ratio] by Automated count Ordered By: Christine Sanchez on 75-71-3934Favooeixhwp distribution width (RBC) [Ratio]14.2 %Olckab88.0-14.8[facility] HospitalComment on above: Performed By: #### ESR #### [place] [address] USAErythrocyte sedimentation rate by Photometric method Ordered By: Christine Sanchez on 14-86-0644JWH Photometric method (Bld) [Velocity]6 mm/hr0-19[facility] HospitalErythrocytes [#/area] in Urine sediment by Automated countOrdered By: Christine Sanchez on 60-49-4718JET Auto (Urine sed) [#/Area]None seen [HPF]0-4FKindred Hospital Dayton Erythrocytes [#/volume] in Blood by Automated countOrdered By: Christine Sanchez on 19-35-2923AAC (Bld) [#/Vol]4.96 10*6/uLNormal3.90-5.60[facility] HospitalComment on above:Performed By: #### ESR #### [facility] [address] [id number] USAGlomerular filtration rate [Volume Rate/Area] in Serum, Plasma or Blood by CreatinineOrdered By: Christine Sanchez on 09-83-4421Cwevdgukst filtration rate [Volume Rate/Area] in Serum, Plasma or Blood by Creatinine> 60.0 mL/MinOhio State East HospitalGlucose [Mass/volume] in Serum or Plasma Ordered By: Christine Sanchez on 82-97-7999Xmldvei [Mass/Vol]136 mg/eVOawj96-956 [facility] HospitalComment on above:ADA recommended reference rangeRandom Glucose Reference Range is dependent on time and content of last meal. Glucose of more than 200 mg/dL in a nonstressed, ambulatory subject supports the diagnosisof Diabetes Mellitus.Result Comment: Random Glucose Reference Range is dependent on time and content of last meal. Glucose of more than 200 mg/dL in a nonstressed, ambulatory subject supports the diagnosis of Diabetes Mellitus. ADA recommended reference rangePerformed By: #### ESR #### [facility] [address] [place] [address] USAGlucose [Mass/volume] in Urine by Test stripOrdered By: Christine Sanchez on 15-64-8204Qarfttc Test strip (U) [Mass/Vol]Normal mg/dLNormal [facility] East HospitalHematocrit [Volume Fraction] of Blood by Automated countOrdered By: Christine Sanchez on 27-91-7655Zxbbulrtsn (Bld) [Volume fraction]45.3 %Lfcsqv76.8-50.0[facility] East HospitalComment on above: Performed By: #### ESR #### [facility] [address] [place] [id number] USAHemoglobin Test strip Ql (U)Ordered By: Christine Sanchez on 64-56-5359Gztlwtbawo Ql (U)NegativeNegKettering Health Main Campus Hemoglobin [Mass/volume] in BloodOrdered By: Christine Sanchez on 08-07-2025 Hemoglobin (Bld) [Mass/Vol]15.4 g/lTGjeiax97.0-17.0[facility] HospitalComment on above:Performed By: #### ESR #### [facility] [address] [place] [address] USAHyaline casts [#/area] in Urine sediment by Automated countOrdered By: Christine Sanchez on 36-10-8107Zawedgk casts Auto (Urine sed) [#/Area]None [LPF]0-8[facility] East HospitalKetones [Presence] in Urine by Test stripOrdered By: Christine Sanchez on 05-30-1261Snwghcl Ql (U) NegativeNormalWVUMedicine Harrison Community HospitalComment on above:Order Comment: Name Collection Type:: Clean-Voided MidstreamPerformed By: #### ESR #### [place] [address] USALeukocyte esterase [Presence] in Urine by Test strip Ordered By: Christine Sanchez on 29-07-5924Pghzeocqt esterase Test strip Ql (U) NegativeRegency Hospital Cleveland WestComment on above:Order Comment: Name Collection Type:: Clean-Voided MidstreamPerformed By: #### ESR #### [place] [address] USALeukocytes [#/area] in Urine sediment by Automated count Ordered By: Christine Sanchez on 89-58-3435EBY Auto (Urine sed) [#/Area]1-2 [HPF] 0-4FKindred Hospital DaytonLeukocytes [#/volume] corrected for nucleated erythrocytes in Blood by Automated counOrdered By: Christine Sanchez on 59-47-2598ORO corrected for nucl RBC Auto (Bld) [#/Vol]9.2 10*3/uL4.1-10.5 [facility] HospitalLeukocytes [#/volume] in Blood by Automated countOrdered By: Christine Sanchez on 00-07-9690GGO (Bld) [#/Vol]9.2 10*3/uLNormal 4.1-10.5FKindred Hospital DaytonComment on above:Performed By: #### ESR #### [facility] [address] [place] [address] USALymphocytes [#/volume] in Blood by Automated countOrdered By: Christine Sanchez on 31-17-8749Ocxztimnnfb (Bld) [#/Vol]0.8 10*3/uLLow1.00-4.8 [facility] HospitalComment on above:Performed By: #### ESR #### [facility] [address] [place] [id number] USALymphocytes/100 leukocytes in Blood by Automated count Ordered By: Christine Sanchez on 48-31-4446Cbjvflrfuic/100 WBC (Bld)8.7 %Normal. [facility] HospitalComment on above:Performed By: #### ESR #### [facility] [address] [place] [id number] [facility] [Entitic mass] by Automated countOrdered By: Christine Sanchez on 86-00-3971GTF (RBC) [Entitic mass]31.1 fgModxsp02.5-35.2FKindred Hospital DaytonComment on above:Performed By: #### ESR #### [facility] [address] [place] [id number] [facility] Auto (RBC) [Mass/Vol]Ordered By: Christine Sanchez on 59-91-9135AIBN (RBC) [Mass/Vol]34.0 g/dL32.5-35.6FKindred Hospital DaytonMCV [Entitic volume] by Automated countOrdered By: Christine Sanchez on 55-68-1190UDL (RBC) [Entitic vol]91.4 aIWrxpih31.5-101[facility] HospitalComment on above:Performed By: #### ESR #### [facility] [address] [place] [address] USAMonocytes [#/volume] in Blood by Automated countOrdered By: Christine Sanchez on 28-90-2395Bxjtplcuj (Bld) [#/Vol]0.8 10*3/uLNormal0.0-0.8 [facility] HospitalComment on above:Performed By: #### ESR #### [facility] [address] [place] [address] USAMonocytes/100 leukocytes in Blood by Automated count Ordered By: Christine Sanchez on 29-98-8680Pmlenbhkp/100 WBC (Bld)8.7 %Normal. [facility] HospitalComment on above:Performed By: #### ESR #### [place] [address] USAMucus [Presence] in Urine by AutomatedOrdered By: Christine Sanchez on 42-36-6787Zuqln Auto Ql (U)1+ [LPF]AbnormalOhio State East HospitalNeutrophils [#/volume] in Blood by Automated countOrdered By: Christine Sanchez on 77-97-0279Pecifjhxpld (Bld) [#/Vol]7.4 10*3/uLNormal1.8-7.7 [facility] HospitalComment on above:Performed By: #### ESR #### [place] [address] USANeutrophils/100 leukocytes in Blood by Automated count Ordered By: Christine Sanchez on 69-22-6569Uflhpaxjeir/100 WBC (Bld)80.5 %Normal. [facility] HospitalComment on above:Performed By: #### ESR #### [place] [address] USANitrite Test strip Ql (U)Ordered By: Christine Sanchez on 80-19-8662Farlbdw Ql (U)NegativeNegativeOhio State East HospitalNo Panel InformationOrdered By: Christine Sanchez on 60-58-9722Rxwgqbmm Creatinine Clearance (ChemN/AFKindred Hospital DaytonNucleated erythrocytes [Presence] in Blood by Automated countOrdered By: Christine Sanchez on 08-07-2025 Nucleated RBC Auto Ql (Bld)0.2 /100{WBC}0-0.5FKindred Hospital Dayton Platelet mean volume [Entitic volume] in Blood by Automated countOrdered By: Christine Sanchez on 22-28-5427Vkbqwfss mean volume (Bld) [Entitic vol]8.7 fLNormal 6.6-10.1FKindred Hospital DaytonComment on above:Performed By: #### ESR #### [facility] [address] [place] [address] USAPlatelets [#/volume] in Blood by Automated countOrdered By: Christine Sanchez on 73-95-7847Abychwfxb (Bld) [#/Vol]190 10*3/zIEnqjnc378-631 [facility] HospitalComment on above:Performed By: #### ESR #### [facility] [address] [place] [address] USAPotassium [Moles/volume] in Serum or PlasmaOrdered By: Christine Sanchez on 56-55-2948Aovdxscya [Moles/Vol]4.2 mmol/LNormal3.5-5.1 [facility] HospitalComment on above:Performed By: #### ESR #### [facility] [address] [place] [address] USAProtein [Mass/volume] in Serum or PlasmaOrdered By: Christine Sanchez on 91-57-9729Gmpmzvk [Mass/Vol]6.0 g/dLLow6.4-8.9[facility] HospitalComment on above:Performed By: #### ESR #### [facility] [address] [place] [address] USAProtein [Mass/volume] in Urine by Test stripOrdered By: Christine Sanchez on 86-64-7151Qdgzlnt (U) [Mass/Vol]20 mg/dLNormalNegative [facility] HospitalComment on above:Order Comment: Name Collection Type:: Clean-Voided MidstreamPerformed By: #### ESR #### [facility] [address] [place] [address] USASerum globulin measurement by calculation (mass/volume) Ordered By: Christine Sanchez on 36-43-2664Caaivljh (S) [Mass/Vol]1.9 g/dLNormal [facility] HospitalComment on above:Performed By: #### ESR #### [place] [address] USASerum or plasma albumin/globulin mass ratioOrdered By: Christine Sanchez on 79-96-0629Wfmughy/Globulin [Mass ratio]2.2 {ratio}Normal [facility] HospitalComment on above:Performed By: #### ESR #### [place] [address] USASerum or plasma anion gap determinationOrdered By: Christine Sanchez on 46-43-4517Gayup gap [Moles/Vol]10.3 mmol/LNormal6.0-15.0[facility] HospitalComment on above:Performed By: #### ESR #### [place] [address] USASerum or plasma complement C3 measurement (mass/volume) Ordered By: Christine Sanchez on 84-33-9332Rzlkfmfenn C3 [Mass/Vol]125 mg/yX63-449 [facility] HospitalComment on above:Performed at: - [facility] [id number] Director: Richy Ardon PhD, Phone: [phone] or plasma complement C4 measurement (mass/volume)Ordered By: Christine Sanchez on 46-19-9357Vgcdlrmtnn C4 [Mass/Vol]13 mg/oC09-80EyoxxdllvOhioHealth Grady Memorial Hospitalodium [Moles/volume] in Serum or PlasmaOrdered By: Christine Sanchez on 39-50-7989Oxtmtd [Moles/Vol]136 mmol/WNpjgqs671-184LhipwtkdlOhio State East HospitalComment on above:Performed By: #### ESR #### [facility] [address] [place] [address] USASpecific gravity Test strip (U) [Rel density]Ordered By: Christine Sanchez on 32-35-5301Xyqqytut gravity (U) [Rel density]1.0271.001-1.030 [facility] HospitalUrea nitrogen [Mass/volume] in Serum or Plasma Ordered By: Christine Sanchez on 31-47-3306Tzcd nitrogen [Mass/Vol]23 mg/dLNormal 06-14[facility] HospitalComment on above:Performed By: #### ESR #### [facility] [address] [place] [address] USAUrobilinogen Test strip (U) [Mass/Vol]Ordered By: Christine Sanchez on 56-93-9312Xejwwcjrtkbe (U) [Mass/Vol]Normal mg/dLNormOhioHealth Riverside Methodist HospitalpH of Urine by Test stripOrdered By: Christnie Sanchez on 82-64-5085sZ (U)5.5 [pH]Normal5.0-9.0[facility] HospitalComment on above:Order Comment: Name Collection Type:: Clean-Voided MidstreamPerformed By: #### ESR #### [place] [address] [employer] tilt table teston 52-37-8866HK tilt table testMETROHEALTH [facility] Main [place] [address] [place] [address] Cardiology Report Signed Patient: Valentin Torre MR#: [id number] [birth year] : 1955 Acct:[id number] Age/Sex: 70 / M ADM Date: 07/24/25 Loc: Room: Type: [facility] Attending Dr: Melanie Trujillo DO Copies to: [...] Troy MD 07/24/25 1101 Signed By: 07/25/25 0948NormSt. Joseph's [facility] Physician [facility] CenterC reactive protein [Mass/volume] in Serum or PlasmaOrdered By: Shabnam Connell on 86-72-2168SXV [Mass/Vol]< 0.5 mg/dL0.0-0.5FKindred Hospital DaytonC-Reactive Proteinon 07-17-2025 CRP [Mass/Vol]mg/LNormal0.0-0.5The [facility] Physician GroupComment on above: Result Comment: PERFORMED BY: [place] [address] PATHOLOGIST SHELLFISH CHECKER LANIE ALVARES M.D.Performed By: #### CRP #### [facility] [address] [place], [place] [address] USAErythrocyte Sedimentation Rateon 76-74-9429ZYX (Bld) [Velocity]3 mm/hNormal0-19[facility] Physician GroupComment on above:Result Comment: PERFORMED BY: [place] [address] PATHOLOGIST SHELLFISH CHECKER LANIE ALVARES M.D.Performed By: #### ESR #### [facility] [address] [place], [place] [address] USAErythrocyte sedimentation rate by Photometric method Ordered By: Shabnam Connell on 11-32-1566KZN Photometric method (Bld) [Velocity]3 mm/hr0-19[facility] HospitalRheumatoid Factoron 65-36-8009Lzipjjxyqe Factor<10.0Normal<14.0[facility] Physician GroupComment on above:Result Comment: Performed at: [address] [id number] [employer] Counter Clerk: Richy Ardon PhD, Phone: [phone] PERFORMED BY: [facility] [place] [address] PATHOLOGIST SHELLFISH CHECKER LANIE ALVARES M.D.Performed By: #### RA #### [facility] ,Serum Sjogrens syndrome-A extractable nuclear antibody assay (units/volume) Ordered By: Shabnam Connell on 41-18-2212Vtvulnmu syndrome-A extractable nuclear Ab Qn (S)0.2 AI0.0-0.9OhioHealth Grady Memorial Hospitalerum Sjogrens syndrome-B extractable nuclear antibody assay (units/volume)Ordered By: Shabnam Connell on 43-09-1881Dkfrlgpb syndrome-B extractable nuclear Ab Qn (S)0.2 AI 0.0-0.9[facility] HospitalComment on above:Performed at: [facility] [address] [id number] Director: Richy Ardon PhD, Phone: [phone] or plasma rheumatoid factor measurement (units/volume)Ordered By: Shabnam Connell on 56-59-8871Tvzailkowb factor Qn [IU]/mL<14.0[facility] HospitalComment on above:Performed at: [facility] [address] [id number] Director: Richy Ardon PhD, Phone: [phone] Anti-SSA/SSBon 17-44-4316NR-A/Ro Sjogrens Antibody0.1Snpprb4.0-0.9[facility] Physician GroupComment on above: Performed By: #### SJOGRENS #### [facility] ,SS-B/La Sjogrens Antibody0.9Nzrwhl7.0-0.9[facility] Physician GroupComment on above:Result Comment: Performed at: - [facility] [address] [id number] [employer] Counter Clerk: Richy Ardon PhD, Phone: [phone] PERFORMED BY: [place] [address] PATHOLOGIST SHELLFISH CHECKER LANIE ALVARES M.D.Performed By: #### SJOGRENS #### [facility] ,[place] carotid doppler BIon 99-21-9983RQ carotid doppler [facility] [place] [address] Ultrasound Report Signed Patient: Valentin Torre MR#: [id number] [birth year] : 1955 Acct:[id number] Age/Sex: 70 / M ADM Date: 06/25/25 [...] Griffin M.D. 06/26/2025 8:47 AM Dictation Location: [facility]04 Tech: Мария Artis Transcribed By: MARV 06/26/25 0847 Dictated By: Audie Griffin MD 06/26/25 0845 Signed By: 06/26/25 0847[facility] Physician GroupECG [address] [place] 57-26-5834Jnahmo sinus rhythm, low voltage QRS, nonspecific ST-T wave abnormality, PVCs, abnormal ECGUnDetwiler Memorial Hospital Work Phone: [facility] Work Phone: ambulatory Visit Summaryon 03-68-9822Lfxxsqaxib Visit SummaryAmbulatory Visit Summary VALENTIN TORRE :1955 Visit Date:06/12/2025 Ambulatory Visit Instructions Your Diagnosis BPH with obstruction/lower urinary tract symptoms Incomplete bladder emptying OAB (overactive bladder) Kidney stone Your Care Team Attending Physician - FLAVIO ONEAL, Zac De Oliveira Primary Care Physician - FURLONG DO, SASCHA This Is Your Medications List dutasteride (dutasteride 0.5 mg Cap) potassium bicarbonate (Effervescent Potassium 25 mEq oral tablet) tamsulosin (tamsulosin 0.4 mg Cap) Contact prescribing physician if questions or concerns acetaminophen (acetaminophen 500 mg Tab) aspirin (aspirin 81 mg oral capsule) budesonide-formoterol (budesonide-formoterol 80 mcg-4.5 mcg/inh Inh Aer w/adapter) fexofenadine-pseudoephedrine (Seema D OTC 24HR) folic acid (folic acid 1 mg Tab) gabapentin (gabapentin 100 mg Cap) hydrochlorothiazide-lisinopril (hydrochlorothiazide-lisinopril 12.5 mg-20 mg Tab) hydrochlorothiazide-lisinopril (hydrochlorothiazide-lisinopril 12.5 mg-20 mg Tab) hydroxychloroquine (hydroxychloroquine 200 [...] Esophagogastroduodenoscopy, Procedure on shoulder, Procedure on spine, Radio- frequency ablation system, Skin cancer, Tympanoplasty. Discharge Vitals Temperature (Temporal Artery) 37 ???C Heart Rate (Peripheral) 80 Respiratory Rate 16 Blood Pressure 119/77 Height 173 cm Height 68 in Weight 99 kg Weight 218.257 lb BMI 33.08 What to do next Scheduled Follow-Up Appointments Tuesday 8:45 AM EDT With: Where: [facility] [address] [place] [address]- Tuesday 8:00 AM EDT With: Zac MUNIZ MD Where: [facility] [address] [place] [address]- You Need to Schedule the Following Appointments Follow Up with Zac MUNIZ MD, URL When: Where: [facility] [address], [place] [phone] Medications What How Much When Why Instructions [...] prescribing physician if questions or concerns Unchanged fexofenadine-pseudoephedrine (Seema D OTC 24HR) By Mouth Every day Contact prescribing physician if questions or concerns Unchanged folic acid (folic acid 1 mg Tab) By Mouth Every day Contact prescribing physician if questions or concerns Unchanged gabapentin (gabapentin 100 mg Cap) 1 Capsules Contact prescribing physician if questions or concerns Unchanged hydrochlorothiazide-lisinopril (hydrochlorothiazide-lisinopril 12.5 mg-20 mg Tab) Contactprescribing physician if questions or concerns Unchanged hydrochlorothiazide-lisinopril (hydrochlorothiazide-lisinopril 12.5 mg-20 mg Tab) 1 Tablets Contact prescribing physician if questions or concerns Unchanged hydroxychloroquine (hydroxychloroquine 200 mg Tab) By Mouth Every day Contact prescribingphysician if questions or concerns Unchanged leflunomide (leflunomide [...] or concerns Unchanged oc (more content not included)...[facility] Urology Office/Clinic Noteon 49-46-6404Opqfwpz Office/Clinic NoteUrology Office/Clinic Note Chief Complaint cystoscopy HPI Staff [...] include bleeding, infection, need for blood transfusion, continuedurinary difficulties, urinary leakage which could be permanent, need for catheter, retrograde ejaculation, scar tissue formation in the urinary channel or area of prostate shaving, erection problems,blood clot formation in the lower extremities which [...] Electrolyte panel 10/20/23 - wnl. KUB 01/11/24 [facility] - Kidneys are partially obscured, R>L. Group of 3 tiny stones at the LLQ of the abdomen which are a couple mm in size and potentially renal stones. A stone overlying the RUP 3 mmwhich probably correlates w/the renal stone seen previously on that side. S/p L ESWL 02/16/24. [facility]UB 08/27/24 [facility] - Stable 4 mm RUP stone. No L renal stones. KUB 04/22/25 [facility] - Stable 3 mm stone RUP. No L sided stones. Taking Potassium Bicarb 25 mEq bid. [2] Follow-up With When Contact Information Zac MUNIZ MD, URL [facility] [address] [place] [phone] Additional Instructions: sched TURP Patient Education Transurethral [...] OAB (overactive bladder) Osteoarthri (more content not included)...[facility] Comment on above:Result Comment: Electronically Signed By: Zac MUNIZ MD\.br\Date and Time Signed: 06/12/25 07:56 EDT\.br\Electronically Co-Signed By: Adela Frias\.br\Date and Time Co-Signed: 06/12/25 07:53 EDTAmbulatory Visit Summaryon 79-86-7820Rfdwdzimlv Visit SummaryAmbulatory Visit Summary VALENTIN TORRE :1955 Visit Date:04/29/2025 [...] Tab) aspirin (aspirin 81 mg oral capsule) fexofenadine-pseudoephedrine (Seema D OTC 24HR) folic acid (folic acid 1 mg Tab) hydrochlorothiazide-lisinopril (hydrochlorothiazide-lisinopril 12.5 mg-20 mg Tab) hydroxychloroquine (hydroxychloroquine 200 [...] Where: [facility] [address], [place] [address]- Medications What How Much When Why Instructions New ciprofloxacin (Cipro 500 mg Tab) 1 Tablets By Mouth As Directed Take one tab the day before theprocedure. Then take the 2nd tab after the procedure has been completed. Pickup at [facility]/pharmacy #[id number] New dutasteride (dutasteride 0.5 mg Cap) 1 Capsules By Mouth Every day Duration: 30 Days Refills: 11 Pickup at [facility]/pharmacy #[id number] Unchanged potassium bicarbonate (Effervescent [...] prescribing physician if questions or concerns Unchanged fexofenadine-pseudoephedrine (Seema D OTC 24HR) By Mouth Every day Contact prescribing physician if questions or concerns Unchanged folic acid (folic acid 1 mg Tab) By Mouth Every day Contact prescribing physician if questions or concerns Unchanged hydrochlorothiazide-lisinopril (hydrochlorothiazide-lisinopril 12.5 mg-20 mg Tab) Contactprescribing physician if questions or concerns Unchanged hydroxychloroquine (hydroxychloroquine 200 mg Tab) By Mouth Every day Contact prescribingphysician if questions or concerns Unchanged leflunomide (leflunomide [...] physician if questions or concerns Pharmacy Information [facility]/pharmacy #[id number]: [address] [place], [place] [phone] Allergies cephalexin (Unknown) oxyCODONE (Hallucinations) sulfa drugs (Unknown) Problems Ongoing - Any problem that you are currently receiving treatment for. Arthritis BPH with obstruction/lower urinary tract symptoms DDD (degenerative disc (more content not included)...NormalTrihealth [facility]hes[facility] HospitalUrology Office/Clinic Noteon 67-91-5822Pgkjzgu Office/Clinic NoteUrology Office/Clinic Note Chief Complaint 6 month follow up HPI Staff 6 month f/u with KUB done 04/22/25 [facility]. S/P right ESWL 10/25/24 Dx: kidney stones [...] Electrolyte panel 10/20/23 - wnl. KUB 01/11/24 [facility] - Kidneys are partially obscured, R>L. Group of 3 tiny stones at the LLQ of the abdomen which are a couple mm in size and potentially renal stones. A stone overlying the RUP 3 mmwhich probably correlates w/the renal stone seen previously [...] No prior prostate procedures. Reports Dr Sutton monitorsPSA for his annual wellness. Has appt either this month or next. Stressed the importance of ensuring this is ordered and checked by PCP. Offered to start other prostate med that will gradually shrinkthe prostate and help with urination.Disucssed cysto to eval prostate obstruction and bladder health. Pt agrees to proceed with med and cysto. -Cont PSA monitoring with PCP -Start Dutasteride 0.5 mg qd. SEs discussed. Sent to [facility]. -Will schedule cysto. The risks and benefits for cystoscopy have been discussed. The risks include bleeding, infection, and irritation of the bladder and urinary channel, among others. The patient, after being informed of procedural details and after questions have been answered, wishes to proceed.Full informed consent has been obtained. Will order Local anesthesia. Prophylactic abx sent to [facility]. 3. OAB (overactive bladder) (N32.81: Overactive bladder) PVR 108 cc. Wears a pad daily for UUI. See #2. -Cysto above Follow-up With When Contact Information FLAVIO ONEAL, Zac De Oliveira, URL [facility] [address], [place] [address]- Additional Instructions: sched cysto Patient Education Cystoscopy [...] folic acid 1 mg Tab, Oral, Daily hydrochlorothiazide-lisinopril 12.5 mg-20 mg Tab hydroxychloroquine 200 mg Tab, Oral, Daily leflunomide 10 mg oral tablet, Oral, Daily Medrol 4 mg Tab meloxicam 15 mg Tab methotrexate 1 g injection, IV, Once montelukast 10 mg Tab, Oral, Daily omeprazole 40 mg Cap-DR, Oral, Daily prednisoLONE (more content not included)...[facility] Comment on above:Result Comment: Electronically Signed By: Zac MUNIZ MD\.br\Date and Time Signed: 04/29/25 10:04 EDT\.br\Electronically Co-Signed By: Teena Stanley\.br\Date and Time Co-Signed: 04/29/25 10:03 EDTAlanine aminotransferase [Enzymatic activity/volume] in Serum or PlasmaOrdered By: Christine Sanchez on 42-49-1011OAD [Catalytic activity/Vol]Alanine aminotransferase [Enzymatic activity/volume] in Serum or Plasma[address] [place], [place] [address]ALT [Catalytic activity/Vol]38 U/LNormal[address] [place], [place] [address]Comment on above:Performed By: #### ADDONUAPLUS, ESR, DIFF CBC, CMP #### [address] #### CH50, C4, C3 #### [facility] ,Albumin [Mass/volume] in Serum or Plasma by Bromocresol green (BCG) dye binding methoOrdered By: Christine Sanchez on 26-77-4763Wfzrfpu BCG dye [Mass/Vol]Albumin [Mass/volume] in Serum or Plasma by Bromocresol green (BCG) dye binding metho 3.5-5.7FKindred Hospital DaytonAlbumin BCG dye [Mass/Vol]4.1 g/dL 3.5-5.7FKindred Hospital DaytonAlkaline phosphatase [Enzymatic activity/volume] in Serum or PlasmaOrdered By: Christine Sanchez on 67-20-4435ABZ [Catalytic activity/Vol]Alkaline phosphatase [Enzymatic activity/volume] in Serum or Tjhrqh04-090Czlgbxqhh[address] [place], [place] [address]ALP [Catalytic activity/Vol]73 U/PAtegqq82-774QvxtgtypwOhio State East HospitalComment on above:Result Comment: PERFORMED BY: [place] [address] PATHOLOGIST SHELLFISH CHECKER LANIE ALVARES M.D.Performed By: #### ADDONUAPLUS, ESR, DIFF CBC, CMP #### [place] [address] [place] #### CH50, C4, C3 #### [facility] ,Appearance of UrineOrdered By: Christine Sanchez on 50-70-2383Ojhonxpijk (U)Urine appearanceClearFKindred Hospital DaytonAppearance (U)ClearNormalClear [facility] HospitalComment on above:Order Comment: Name Collection Type:: Clean-Voided MidstreamPerformed By: #### ADDONUAPLUS, ESR, DIFF CBC, CMP #### [place] [address] [place] #### CH50, C4, C3 #### [facility] ,Aspartate aminotransferase [Enzymatic activity/volume] in Serum or Plasma Ordered By: Christine Sanchez on 77-60-1119VKH [Catalytic activity/Vol]Aspartate aminotransferase [Enzymatic activity/volume] in Serum or Rzgqln51-80DqwdsdqozOhio State East HospitalAST [Catalytic activity/Vol]19 U/HDallpg57-69BnbfxgtqyOhio State East HospitalComment on above:Performed By: #### ADDONUAPLUS, ESR, DIFF CBC, CMP #### [place] [address] [place] #### CH50, C4, C3 #### [facility] ,Bacteria [Presence] in Urine by AutomatedOrdered By: Christine Sanchez on 20-07-6091Osemwqwj Auto Ql (U)Bacteria [Presence] in Urine by AutomatedNone Seen [facility] HospitalBacteria Auto Ql (U)Rare [HPF]None Seen [facility] HospitalBasophils Auto (Bld) [#/Vol]Ordered By: Christine Sanchez on 60-67-8429Xfibjnebj (Bld) [#/Vol]Automated basophil countOhio State East HospitalBasophils (Bld) [#/Vol]N/[facility] HospitalBasophils/100 WBC Auto (Bld)Ordered By: Christine Sanchez on 04-18-2025 Basophils/100 WBC (Bld)Automated basophil %[facility] Basophils/100 WBC (Bld)N/[facility] HospitalBasophils/100 WBC Manual cnt (Bld)Ordered By: Christine Sanchez on 19-65-7579Kwrkyjnux/100 WBC (Bld) Basophils/100 leukocytes in Blood by Manual count0[facility] DaytonBasophils/100 leukocytes in Blood by Manual countOrdered By: Christine Sanchez on 13-77-3059Ogyfjiqfc/100 WBC (Bld)0 %Normal0[facility] Hospital DaytonComment on above:Performed By: #### ADDONUAPLUS, ESR, DIFF CBC, CMP #### [facility] [address] [place] [address] [place] #### CH50, C4, C3 #### [facility] ,Bilirubin Test strip Ql (U)Ordered By: Christine Sanchez on 84-51-9989Szgeunpsq Ql (U)Bilirubin.total [Presence] in Urine by Test stripNegativeOhio State East HospitalBilirubin Ql (U)NegativeNegativeOhio State East Hospital Bilirubin.total [Mass/volume] in Serum or PlasmaOrdered By: Christine Sanchez on 34-98-4513Ppabooadi [Mass/Vol]Bilirubin.total [Mass/volume] in Serum or Plasma 0.3-1.0[facility] HospitalBilirubin [Mass/Vol]0.4 mg/dLNormal 0.3-1.0[facility] HospitalComment on above:Performed By: #### ADDONUAPLUS, ESR, DIFF CBC, CMP #### [facility] [address] [place] [address] [place] #### CH50, C4, C3 #### [facility] ,Calcium [Mass/volume] in Serum or PlasmaOrdered By: Christine Sanchez on 40-82-4517Geyisfk [Mass/Vol]Calcium [Mass/volume] in Serum or Plasma8.6-10.3 [facility] HospitalCalcium [Mass/Vol]8.7 mg/dLNormal8.6-10.3 [facility] HospitalComment on above:Performed By: #### ADDONUAPLUS, ESR, DIFF CBC, CMP #### [facility] [address] [place] [address] [place] #### CH50, C4, C3 #### [facility] ,Carbon dioxide, total [Moles/volume] in Serum or PlasmaOrdered By: Christine Sanchez on 94-53-6145GF2 [Moles/Vol]Carbon dioxide, total [Moles/volume] in Serum or Alxykq37.0-31.0[facility] HospitalCO2 [Moles/Vol]23.0 mmol/ZOghmbv83.0-31.0[facility] HospitalComment on above:Performed By: #### ADDONUAPLUS, ESR, DIFF CBC, CMP #### [facility] [address] [place] [address] [place] #### CH50, C4, C3 #### [facility] ,Chloride [Moles/volume] in Serum or PlasmaOrdered By: Christine Sanchez on 76-22-1557Bywhajzc [Moles/Vol]Chloride [Moles/volume] in Serum or Yqqlom07-555 [facility] HospitalChloride [Moles/Vol]105 mmol/ZXdhddo22-105 [facility] HospitalComment on above:Performed By: #### ADDONUAPLUS, ESR, DIFF CBC, CMP #### [facility] [address] [place] [address] [place] #### CH50, C4, C3 #### [facility] ,Color Auto (U)Ordered By: Christine Sanchez on 18-70-1571Ovlau (U)Color of Urine by AutoYelGalion HospitalColor of Urine by AutoOrdered By: Christine Sanchez on 31-63-5792Tiwsv (U)YellowNormalYOhio State Health SystemComment on above:Order Comment: Name Collection Type:: Clean- Voided MidstreamPerformed By: #### ADDONUAPLUS, ESR, DIFF CBC, CMP #### [place] [address] [place] #### CH50, C4, C3 #### [facility] ,Complement C3on 99-69-3419Dljqepmcnb C3121 mg/jDLhvnrf09-117Stx [facility] Physician GroupComment on above:Result Comment: Performed at: [address] [id number] [employer] Counter Clerk: Richy Ardon PhD, Phone: [phone] By: #### HS TROP #### [place] [address] USAComplement C4on 67-57-0868Eqhrkfzzac C414 mg/rQTyhpsk91-38 The [facility] Physician GroupComment on above:Result Comment: PERFORMED BY: [place] [address] PATHOLOGIST SHELLFISH CHECKER LANIE ALVARES M.D.Performed By: #### HS TROP #### [place] [address] USAComplement Total (CH50)on 44-28-0032Posuxruzdl Total (CH50)58Normal>41The [facility]ician [facility] Medical CenterComment on above:Result Comment: Age Male Female 1 - 30 [...] determine out of range values. Performed at: [facility] [id number] [employer] Counter Clerk: Richy Ardon PhD, Phone: [phone] PERFORMED BY: [place] [address] PATHOLOGIST SHELLFISH CHECKER LANIE ALVARES M.D.Performed By: #### HS TROP #### [place] [address] USAComprehensive Metabolic Panelon 26-50-8363Jewtacs [Mass/Vol]4.1 g/dLNormal3.5-5.7The [facility] Physician GroupComment on above: Performed By: #### ADDONUAPLUS, ESR, DIFF CBC, CMP #### [address] #### CH50, C4, C3 #### [facility] ,GFR/1.73 sq M.predicted MDRD (S/P/Bld) [Vol rate/Area]mL/min/{1.73_m2}NormalThe [facility] Physician [facility] CenterComment on above:Performed By: #### ADDONUAPLUS, ESR, DIFF CBC, CMP #### [place] [address] [place] #### CH50, C4, C3 #### [facility] ,Creatinine [Mass/volume] in Serum or PlasmaOrdered By: Christine Sanchez on 88-55-2502Zivbwxzqns [Mass/Vol]Creatinine [Mass/volume] in Serum or Plasma 0.70-1.30[facility] HospitalCreatinine [Mass/Vol]0.90 mg/dLNormal 0.70-1.30[facility] HospitalComment on above:Performed By: #### ADDONUAPLUS, ESR, DIFF CBC, CMP #### [place] [address] [place] #### CH50, C4, C3 #### [facility] ,Diff and CBCon 70-57-7212Fteo Corpuscular HGB Conc34.8 g/zKAnjrmk85.5-35.6The [facility] Physician GroupComment on above:Performed By: #### ADDONUAPLUS, ESR, DIFF CBC, CMP #### [address] #### CH50, C4, C3 #### [facility] ,Metamyelocytes1 %High0-0[facility] Physician GroupComment on above:Performed By: #### ADDONUAPLUS, ESR, DIFF CBC, CMP #### [address] #### CH50, C4, C3 #### [facility] ,Myelocytes3 %High0-0[facility] Physician GroupComment on above:Performed By: #### ADDONUAPLUS, ESR, DIFF CBC, CMP #### [address] #### CH50, C4, C3 #### [facility] ,Platelet EstimateNormalNormalNormSt. Joseph's Children's Hospital Physician GroupComment on above:Performed By: #### ADDONUAPLUS, ESR, DIFF CBC, CMP #### [address] #### CH50, C4, C3 #### [facility] ,Platelet MorphologyNormalNormalNormSt. Joseph's Children's Hospital Physician GroupComment on above:Performed By: #### ADDONUAPLUS, ESR, DIFF CBC, CMP #### [place] [address] [place] #### CH50, C4, C3 #### [facility] ,Dipstick and Microscopicon 92-78-1997Ikyvejzr,UrineRareNormalNone [facility] Physician GroupComment on above:Order Comment: Name Collection Type:: Clean-Voided MidstreamPerformed By: #### ADDONUAPLUS, ESR, DIFF CBC, CMP #### [place] [address] [place] #### CH50, C4, C3 #### [facility] ,Bilirubin,UrineNegativeNormalNegativeThe [facility] Physician GroupComment on above:Order Comment: Name Collection Type:: Clean-Voided MidstreamPerformed By: #### ADDONUAPLUS, ESR, DIFF CBC, CMP #### [address] #### CH50, C4, C3 #### [facility] ,Glucose Ql (U)NormalNormalNormalThe [facility] Physician GroupComment on above: Order Comment: Name Collection Type:: Clean-Voided MidstreamPerformed By: #### ADDONUAPLUS, ESR, DIFF CBC, CMP #### [address] #### CH50, C4, C3 #### [facility] ,Hyaline Casts,Qbbdw5-4Oundsy0-5Umm [facility] Physician GroupComment on above: Order Comment: Name Collection Type:: Clean-Voided MidstreamPerformed By: #### ADDONUAPLUS, ESR, DIFF CBC, CMP #### [address] #### CH50, C4, C3 #### [facility] ,Mucus,Urine4+Critically abnormalThe [facility] Physician GroupComment on above: Order Comment: Name Collection Type:: Clean-Voided MidstreamResult Comment: PERFORMED BY: [place] [address] PATHOLOGIST SHELLFISH CHECKER LANIE ALVARES M.D.Performed By: #### ADDONUAPLUS, ESR, DIFF CBC, CMP #### [address] #### CH50, C4, C3 #### [facility] ,Nitrite,UrineNegativeNormalNegativeThe [facility] Physician GroupComment on above:Order Comment: Name Collection Type:: Clean-Voided MidstreamPerformed By: #### ADDONUAPLUS, ESR, DIFF CBC, CMP #### [address] [place] [address] [place] #### CH50, C4, C3 #### [facility] ,Occult Blood,UrineNegativeNormalNegativeThe [facility] Physician GroupComment on above:Order Comment: Name Collection Type:: Clean-Voided MidstreamPerformed By: #### ADDONUAPLUS, ESR, DIFF CBC, CMP #### [address] #### CH50, C4, C3 #### [facility] ,RBC,Xmhml4-3Zgusmn2-6Fia [facility] Physician GroupComment on above:Order Comment: Name Collection Type:: Clean-Voided MidstreamPerformed By: #### ADDONUAPLUS, ESR, DIFF CBC, CMP #### [address] #### CH50, C4, C3 #### [facility] ,Specificy [place],Urine1.280Sltirp3.001-1.030The [facility] Comment on above:Order Comment: Name Collection Type:: Clean-Voided Midstream Performed By: #### ADDONUAPLUS, ESR, DIFF CBC, CMP #### [address] #### CH50, C4, C3 #### [facility] ,Urobilinogen,UrineNormalNormalNormalThe [facility] Physician GroupComment on above:Order Comment: Name Collection Type:: Clean-Voided MidstreamPerformed By: #### ADDONUAPLUS, ESR, DIFF CBC, CMP #### [address] #### CH50, C4, C3 #### [facility] ,WBC,Rehlx6-8Cwafip5-4Ulk [facility] Physician GroupComment on above:Order Comment: Name Collection Type:: Clean-Voided MidstreamPerformed By: #### ADDONUAPLUS, ESR, DIFF CBC, CMP #### [facility] [address] #### CH50, C4, C3 #### [facility] ,Eosinophils Auto (Bld) [#/Vol]Ordered By: Christine Sanchez on 04-18-2025 Eosinophils (Bld) [#/Vol]Automated eosinophil countOhio State East HospitalEosinophils (Bld) [#/Vol]N/[facility] Eosinophils/100 WBC Auto (Bld)Ordered By: Christine Sanchez on 04-18-2025 Eosinophils/100 WBC (Bld)Automated eosinophil %[facility] Eosinophils/100 WBC (Bld)N/[facility] HospitalEosinophils/100 WBC Manual cnt (Bld)Ordered By: Christine Sanchez on 50-26-2118Dgivzvlkxvk/100 WBC (Bld)Eosinophils/100 leukocytes in Blood by Manual countLow127 Snyder StreetEosinophils/100 leukocytes in Blood by Manual countOrdered By: Christine Sanchez on 82-81-3142Oyypyvgosjg/100 WBC (Bld)0 %Low127 Snyder StreetComment on above:Performed By: #### ADDONUAPLUS, ESR, DIFF CBC, CMP #### [address] #### CH50, C4, C3 #### [facility] ,Epithelial cells.squamous [#/area] in Urine sediment by Automated countOrdered By: Christine Sanchez on 38-59-7757Gmfhdcscyd cells.squamous Auto (Urine sed) [#/Area]Epithelial cells.squamous [#/area] in Urine sediment by Automated count [facility] HospitalEpithelial cells.squamous Auto (Urine sed) [#/Area]N/[facility] HospitalErythrocyte Sedimentation Rateon 49-91-4020AVJ (Bld) [Velocity]4 mm/hNormal0-19The [facility] Comment on above:Result Comment: PERFORMED BY: [place] [address] PATHOLOGIST SHELLFISH CHECKER LANIE ALVARES M.D.Performed By: #### ADDONUAPLUS, ESR, DIFF CBC, CMP #### [place] [address] [place] #### CH50, C4, C3 #### [facility] ,Erythrocyte distribution width Auto (RBC) [Ratio]Ordered By: Christine Sanchez on 87-53-6162Pfqqgteinnl distribution width (RBC) [Ratio]Erythrocyte distribution width [Ratio] by Automated ezijcMvux08.0-14.8[facility] Erythrocyte distribution width [Ratio] by Automated countOrdered By: Christine Sanchez on 96-13-6503Rgwrgfopsoy distribution width (RBC) [Ratio]14.9 %High 12.0-14.8[facility] HospitalComment on above:Performed By: #### ADDONUAPLUS, ESR, DIFF CBC, CMP #### [place] [address] [place] #### CH50, C4, C3 #### [facility] ,Erythrocyte morphology finding [Identifier] in BloodOrdered By: Christine Sanchez on 13-02-4986QCR morphology finding Nom (Bld)RBC morphologyNormalOhio State East HospitalRB morphology finding Nom (Bld)NormalNormalNormal [facility] HospitalComment on above:Performed By: #### ADDONUAPLUS, ESR, DIFF CBC, CMP #### [place] [address] [place] #### CH50, C4, C3 #### [facility] ,Erythrocyte sedimentation rate by Photometric methodOrdered By: Christine Sanchez on 44-62-4375JDC Photometric method (Bld) [Velocity]Erythrocyte sedimentation rate by Photometric methodOhio State East HospitalESR Photometric method (Bld) [Velocity]4 mm/hr0[facility] HospitalErythrocytes [#/area] in Urine sediment by Automated countOrdered By: Christine Sanchez on 34-68-2555CGN Auto (Urine sed) [#/Area]Erythrocytes [#/area] in Urine sediment by Automated count0-4FKindred Hospital DaytonRBC Auto (Urine sed) [#/Area]1-2 [HPF]0-4FKindred Hospital DaytonErythrocytes [#/volume] in Blood by Automated countOrdered By: Christine Sanchez on 46-97-7816MRB (Bld) [#/Vol]5.01 10*6/uLNormal3.90-5.60[facility] HospitalComment on above:Performed By: #### ADDONUAPLUS, ESR, DIFF CBC, CMP #### [place] [address] [place] #### CH50, C4, C3 #### [facility] ,Globulin Calc (S) [Mass/Vol]Ordered By: Christine Sanchez on 71-13-5095Bxfqxmaz (S) [Mass/Vol]Serum globulin measurement by calculation (mass/volume)[facility] HospitalGlucose [Mass/volume] in Serum or PlasmaOrdered By: Christine Sanchez on 96-77-0582Vozlsnl [Mass/Vol]Glucose [Mass/volume] in Serum or VljlihQcbi38-879BgtjoapswOhio State East HospitalComment on above:ADA recommended reference rangeRandom Glucose Reference Range is dependent on time and content of last meal. Glucose of more than 200 mg/dL in a nonstressed, ambulatory subject supports the diagnosisof Diabetes Mellitus.Glucose [Mass/Vol] 110 mg/fAVles21-938GijunhhlxOhio State East HospitalComment on above:ADA recommended reference rangeRandom Glucose Reference Range is dependent on time and content of last meal. Glucose of more than 200 mg/dL in a nonstressed, ambulatory subject supports the diagnosisof Diabetes Mellitus.Result Comment: Random Glucose Reference Range is dependent on time and content of last meal. Glucose of more than 200 mg/dL in a nonstressed, ambulatory subject supports the diagnosis of Diabetes Mellitus. ADA recommended reference rangePerformed By: #### ADDONUAPLUS, ESR, DIFF CBC, CMP #### [place] [address] [place] #### CH50, C4, C3 #### [facility] ,Glucose [Mass/volume] in Urine by Test stripOrdered By: Christine Sanchez on 17-98-9083Gcgexvx Test strip (U) [Mass/Vol]Glucose [Mass/volume] in Urine by Test stripNoBlanchard Valley Health System Bluffton HospitalGlucose Test strip (U) [Mass/Vol]Normal mg/dLNormOhioHealth Riverside Methodist HospitalHematocrit Auto (Bld) [Volume fraction]Ordered By: Christine Sanchez on 50-12-6508Hvfireopfa (Bld) [Volume fraction]Hematocrit [Volume Fraction] of Blood by Automated count 38.8-50.0[facility] HospitalHematocrit [Volume Fraction] of Blood by Automated countOrdered By: Christine Sanchez on 89-11-3450Tuyequmljr (Bld) [Volume fraction]45.5 %Sigpdv38.8-50.0[facility] HospitalComment on above:Performed By: #### ADDONUAPLUS, ESR, DIFF CBC, CMP #### [place] [address] [place] #### CH50, C4, C3 #### [facility] ,Hemoglobin Test strip Ql (U)Ordered By: Christine Sanchez on 70-61-6273Uywrnnrqds Ql (U)Hemoglobin [Presence] in Urine by Test stripNegativeOhio State East HospitalHemoglobin Ql (U)NegativeNegativeOhio State East Hospital Hemoglobin [Mass/volume] in BloodOrdered By: Christine Sanchez on 04-18-2025 Hemoglobin (Bld) [Mass/Vol]Hemoglobin [Mass/volume] in Blood13.0-17.0[facility] HospitalHemoglobin (Bld) [Mass/Vol]15.8 g/aRDoukai62.0-17.0 [facility] HospitalComment on above:Performed By: #### ADDONUAPLUS, ESR, DIFF CBC, CMP #### [facility] [address] [place] [address] [place] #### CH50, C4, C3 #### [facility] ,Hyaline casts [#/area] in Urine sediment by Automated countOrdered By: Christine Sanchez on 22-54-6237Fudkost casts Auto (Urine sed) [#/Area]Hyaline casts [#/area] in Urine sediment by Automated count0-8[facility] HospitalHyaline casts Auto (Urine sed) [#/Area]0-8 [LPF]0-8[facility] HospitalKetones Test strip Ql (U)Ordered By: Christine Sanchez on 04-18-2025 Ketones Ql (U)Ketones [Presence] in Urine by Test stripNegativeOhio State East HospitalKetones [Presence] in Urine by Test stripOrdered By: Christine Sanchez on 26-72-9039Alkzary Ql (U)NegativeNormalNegKettering Health Main CampusComment on above:Order Comment: Name Collection Type:: Clean- Voided MidstreamPerformed By: #### ADDONUAPLUS, ESR, DIFF CBC, CMP #### [place] [address] [place] #### CH50, C4, C3 #### [facility] ,Leukocyte esterase [Presence] in Urine by Test stripOrdered By: Christine Sanchez on 82-48-3220Nqztiboxk esterase Test strip Ql (U)Leukocyte esterase [Presence] in Urine by Test stripNegKettering Health Main CampusLeukocyte esterase Test strip Ql (U)NegativeNormalNegKettering Health Main CampusComment on above:Order Comment: Name Collection Type:: Clean-Voided MidstreamPerformed By: #### ADDONUAPLUS, ESR, DIFF CBC, CMP #### [facility] [address] [place] [address] [place] #### CH50, C4, C3 #### [facility] ,Leukocytes [#/area] in Urine sediment by Automated countOrdered By: Christine Sanchez on 60-54-9604HCI Auto (Urine sed) [#/Area]Leukocytes [#/area] in Urine sediment by Automated count0-4FKindred Hospital DaytonWBC Auto (Urine sed) [#/Area]1-2 [HPF]0-4FKindred Hospital DaytonLeukocytes [#/volume] corrected for nucleated erythrocytes in Blood by Automated counOrdered By: Christine Sanchez on 70-33-3086CGP corrected for nucl RBC Auto (Bld) [#/Vol]Leukocytes [#/volume] corrected for nucleated erythrocytes in Blood by Automated coun 4.1-10.5FKindred Hospital DaytonWBC corrected for nucl RBC Auto (Bld) [#/Vol]5.5 10*3/uL4.1-10.5FKindred Hospital DaytonLeukocytes [#/volume] in Blood by Automated countOrdered By: Christine Sanchez on 63-96-0167JDO (Bld) [#/Vol]5.5 10*3/uLNormal4.1-10.5FKindred Hospital DaytonComment on above:Performed By: #### ADDONUAPLUS, ESR, DIFF CBC, CMP #### [address] #### CH50, C4, C3 #### [facility] ,Lymphocytes Auto (Bld) [#/Vol]Ordered By: Christine Sanchez on 04-18-2025 Lymphocytes (Bld) [#/Vol]Lymphocytes [#/volume] in Blood by Automated count [facility] HospitalLymphocytes (Bld) [#/Vol]N/AFKindred Hospital DaytonLymphocytes/100 WBC Auto (Bld)Ordered By: Christine Sanchez on 11-50-8611Ledbvdsjwhk/100 WBC (Bld)Lymphocytes/100 leukocytes in Blood by Automated countOhio State East HospitalLymphocytes/100 WBC (Bld)N/A [facility] HospitalLymphocytes/100 WBC Manual cnt (Bld)Ordered By: Christine Sanchez on 05-69-9487Ejmqmyzyrcr/100 WBC (Bld)Lymphocytes/100 leukocytes in Blood by Manual nfayyGqj64-75RjltqlmphOhio State East Hospital Lymphocytes/100 leukocytes in Blood by Manual countOrdered By: Christine Sanchez on 00-86-6485Luzorreycme/100 WBC (Bld)8 %Xnw36-08XipbcytdfOhio State East Hospital Comment on above:Performed By: #### ADDONUAPLUS, ESR, DIFF CBC, CMP #### [address] #### CH50, C4, C3 #### [facility] ,MCH Auto (RBC) [Entitic mass]Ordered By: Christine Sanchez on 63-91-9411MJH (RBC) [Entitic mass]MCH [Entitic mass] by Automated count27.5-35.2FEast [facility] [Entitic mass] by Automated countOrdered By: Christine Sanchez on 52-24-0396CLV (RBC) [Entitic mass]31.6 edNytxsw28.5-35.2FKindred Hospital DaytonComment on above:Performed By: #### ADDONUAPLUS, ESR, DIFF CBC, CMP #### [address] #### CH50, C4, C3 #### [facility] ,MCHC Auto (RBC) [Mass/Vol]Ordered By: Christine Sanchez on 15-68-5093RCYM (RBC) [Mass/Vol]MCHC [Mass/volume] by Automated count32.5-35.6FTrinity Health System West CampusHC (RBC) [Mass/Vol]34.8 g/dL32.5-35.6FTrinity Health System West CampusV Auto (RBC) [Entitic vol]Ordered By: Christine Sanchez on 11-80-2969UUW (RBC) [Entitic vol]MCV [Entitic volume] by Automated count83.5-Providence HospitalV [Entitic volume] by Automated countOrdered By: Christine Sanchez on 71-87-9101SKP (RBC) [Entitic vol]90.9 aELjtmmy17.5-101[facility] HospitalComment on above:Performed By: #### ADDONUAPLUS, ESR, DIFF CBC, CMP #### [facility] [address] [place] [id number] [place] #### CH50, C4, C3 #### [facility] ,Metamyelocytes/100 WBC Manual cnt (Bld)Ordered By: Christine Sanchez on 04-18-2025 Metamyelocytes/100 WBC (Bld)Metamyelocytes/100 leukocytes in Blood by Manual countHigh0-0[facility] HospitalMetamyelocytes/100 WBC (Bld)1 %High 0-0[facility] HospitalMonocytes Auto (Bld) [#/Vol]Ordered By: Christine Sanchez on 12-17-4183Uttibumcv (Bld) [#/Vol]Automated blood monocyte count [facility] HospitalMonocytes (Bld) [#/Vol]N/[facility] HospitalMonocytes/100 WBC Auto (Bld)Ordered By: Christine Sanchez on 98-63-4302Wesdrecfz/100 WBC (Bld)Automated monocyte %[facility] HospitalMonocytes/100 WBC (Bld)N/[facility] HospitalMonocytes/100 WBC Manual cnt (Bld)Ordered By: Christine Sanchez on 75-33-7483Myuvcreco/100 WBC (Bld)Monocytes/100 leukocytes in Blood by Manual countHighland Hospital211Ohio [facility] HospitalMonocytes/100 leukocytes in Blood by Manual countOrdered By: Christine Sanchez on 09-71-6695Fhvbjtscz/100 WBC (Bld)19 %[address] Chen StreetComment on above:Performed By: #### ADDONUAPLUS, ESR, DIFF CBC, CMP #### [facility] [address] [place] [address] [place] #### CH50, C4, C3 #### [facility] ,Mucus [Presence] in Urine by AutomatedOrdered By: Christine Sanchez on 04-18-2025 Mucus Auto Ql (U)Mucus [Presence] in Urine by AutomatedAbnormalOhio State East HospitalMucus Auto Ql (U)4+ [LPF]AbnormalOhio State East HospitalMyelocytes/100 WBC Manual cnt (Bld)Ordered By: Christine Sanchez on 74-55-3328Eiuesymmvx/100 WBC (Bld)Myelocytes/100 leukocytes in Blood by Manual countHigh0-0[facility] HospitalMyelocytes/100 WBC (Bld)3 %High0-0 [facility] HospitalNeutrophils Auto (Bld) [#/Vol]Ordered By: Christine Sanchez on 39-29-3366Knxarmpfbgo (Bld) [#/Vol]Neutrophils [#/volume] in Blood by Automated countOhio State East HospitalNeutrophils (Bld) [#/Vol]N/A [facility] HospitalNeutrophils/100 WBC Auto (Bld)Ordered By: Christine Sanchez on 10-67-8253Vhjlbjggqhu/100 WBC (Bld)Automated neutrophil %[facility] HospitalNeutrophils/100 WBC (Bld)N/[facility] HospitalNitrite Test strip Ql (U)Ordered By: Christine Sanchez on 89-10-4384Vuldlfb Ql (U)Nitrite [Presence] in Urine by Test stripNegativeOhio State East HospitalNitrite Ql (U)NegativeNegativeOhio State East HospitalNo Panel InformationOrdered By: Christine Sanchez on 94-82-6221Htlreqlxk GFR (CKD-EPI) > 60.0 mL/MinOhio State East HospitalPharmacy Creatinine Clearance (ChemN/[facility] HospitalNucleated erythrocytes [Presence] in Blood by Automated countOrdered By: Christine Sanchez on 38-42-0321Wvabwaxvu RBC Auto Ql (Bld)Nucleated erythrocytes [Presence] in Blood by Automated count [facility] HospitalNucleated RBC Auto Ql (Bld)N/[facility] HospitalPlatelet adequacy [Presence] in Blood by Light microscopy Ordered By: Christine Sanchez on 77-25-7884Kmwvracnp LM Ql (Bld)Platelet adequacy [Presence] in Blood by Light microscopyNormOhioHealth Riverside Methodist Hospital Platelets LM Ql (Bld)NormalNormOhioHealth Riverside Methodist HospitalPlatelet mean volume Auto (Bld) [Entitic vol]Ordered By: Christine Sanchez on 64-81-5673Bkgdzqtj mean volume (Bld) [Entitic vol]Platelet mean volume [Entitic volume] in Blood by Automated count6.6-10.1FKindred Hospital DaytonPlatelet mean volume [Entitic volume] in Blood by Automated countOrdered By: Christine Sanchez on 15-27-4377Zmakrfik mean volume (Bld) [Entitic vol]8.3 fLNormal6.6-10.1FKindred Hospital DaytonComment on above:Performed By: #### ADDONUAPLUS, ESR, DIFF CBC, CMP #### [facility] [address] [place] [address] [place] #### CH50, C4, C3 #### [facility] ,Platelet morphology finding [Identifier] in BloodOrdered By: Christine Sanchez on 21-01-9727Ktgmwgrd morphology finding Nom (Bld)Platelet morphology finding [Identifier] in BloodNoBlanchard Valley Health System Bluffton HospitalPlatelet morphology finding Nom (Bld)NormalKettering HealthPlatelets Auto (Bld) [#/Vol]Ordered By: Christine Sanchez on 24-56-2162Gvkkjdmff (Bld) [#/Vol] Platelets [#/volume] in Blood by Automated egbrc235-371Jpbnlrrig40 [address] [place], [place] [address]Platelets [#/volume] in Blood by Automated countOrdered By: Christine Sanchez on 36-94-7279Lnhhijrpy (Bld) [#/Vol]207 10*3/mATqbdca117-581Elxcrpywb[address] [place], [place] [address]Comment on above:Performed By: #### ADDONUAPLUS, ESR, DIFF CBC, CMP #### [facility] [address] [place] [address] [place] #### CH50, C4, C3 #### [facility] ,Potassium [Moles/volume] in Serum or PlasmaOrdered By: Christine Sanchez on 72-86-2502Gcgyppmyx [Moles/Vol]Potassium [Moles/volume] in Serum or Plasma 3.5-5.1FKindred Hospital DaytonPotassium [Moles/Vol]4.3 mmol/LNormal 3.5-5.1FKindred Hospital DaytonComment on above:Performed By: #### ADDONUAPLUS, ESR, DIFF CBC, CMP #### [address] #### CH50, C4, C3 #### [facility] ,Protein Test strip (U) [Mass/Vol]Ordered By: Christine Sanchez on 04-18-2025 Protein (U) [Mass/Vol]Protein [Mass/volume] in Urine by Test stripHighNegCleveland Clinic Fairview HospitalProtein [Mass/volume] in Serum or PlasmaOrdered By: Christine Sanchez on 28-67-7577Jmxbbpo [Mass/Vol]Protein [Mass/volume] in Serum or PlasmaLow6.4-8.9[facility] HospitalProtein [Mass/Vol]6.1 g/dLLow6.4-8.9[facility] HospitalComment on above:Performed By: #### ADDONUAPLUS, ESR, DIFF CBC, CMP #### [address] #### CH50, C4, C3 #### [facility] ,Protein [Mass/volume] in Urine by Test stripOrdered By: Christine Sanchez on 05-27-9651Xnzwdgt (U) [Mass/Vol]50 mg/dLHighNegKettering Health Main CampusComment on above:Order Comment: Name Collection Type:: Clean-Voided MidstreamPerformed By: #### ADDONUAPLUS, ESR, DIFF CBC, CMP #### [address] #### CH50, C4, C3 #### [facility] ,RBC Auto (Bld) [#/Vol]Ordered By: Christine Sanchez on 25-48-8406HKV (Bld) [#/Vol] Erythrocytes [#/volume] in Blood by Automated count3.90-5.60[facility] Hospitalegmented neutrophils/100 WBC Manual cnt (Bld)Ordered By: Christine Sanchez on 46-41-9239Usxhoueaz neutrophils/100 WBC (Bld)Manual blood segmented neutrophils/100 dpjiofmxfv20-30UfkphsudmOhioHealth Grady Memorial Hospitalegmented neutrophils/100 leukocytes in Blood by Manual countOrdered By: Christine Sanchez on 15-56-3631Tkvsyqpxh neutrophils/100 WBC (Bld)69 %Zyrrel81-00DpzqnsvvqOhio State East HospitalComment on above:Performed By: #### ADDONUAPLUS, ESR, DIFF CBC, CMP #### [facility] [address] [place] [address] [place] #### CH50, C4, C3 #### [facility] ,Serum globulin measurement by calculation (mass/volume)Ordered By: Christine Sanchez on 58-27-2393Zkhngvae (S) [Mass/Vol]2.0 g/dLNormalOhio State East HospitalComment on above:Performed By: #### ADDONUAPLUS, ESR, DIFF CBC, CMP #### [facility] [address] [place] [address] [place] #### CH50, C4, C3 #### [facility] ,Serum or plasma albumin/globulin mass ratioOrdered By: Chrisitne Sanchez on 72-68-5310Rnahiyh/Globulin [Mass ratio]Serum or plasma albumin/globulin mass ratioOhio State East HospitalAlbumin/Globulin [Mass ratio]2.1 {ratio} NormalOhio State East HospitalComment on above:Performed By: #### ADDONUAPLUS, ESR, DIFF CBC, CMP #### [place] [address] [place] #### CH50, C4, C3 #### [facility] ,Serum or plasma anion gap determinationOrdered By: Christine Sanchez on 04-18-2025 Anion gap [Moles/Vol]Serum or plasma anion gap determination6.0-15.0[facility] HospitalAnion gap [Moles/Vol]13.3 mmol/LNormal6.0-15.0[facility] HospitalComment on above:Performed By: #### ADDONUAPLUS, ESR, DIFF CBC, CMP #### [facility] [address] [place] [address] [place] #### CH50, C4, C3 #### [facility] ,Serum or plasma complement C3 measurement (mass/volume)Ordered By: Christine Sanchez on 16-33-7974Pttecjohll C3 [Mass/Vol]Serum or plasma complement C3 measurement (mass/volume)82-167Ohio State East HospitalComment on above:Performed at: [address] [id number] Director: Richy Ardon PhD, Phone: [phone] C3 [Mass/Vol]121 mg/fQ60-715Ljqyzalhs31 Haley StreetComment on above:Performed at: [facility] [employer] [id number] Director: Richy Ardon PhD, Phone: [phone] or plasma complement C4 measurement (mass/volume)Ordered By: Christine Sanchez on 81-17-9124Ivtgfzvtxh C4 [Mass/Vol] Serum or plasma complement C4 measurement (mass/volume)12[facility] HospitalComplement C4 [Mass/Vol]14 mg/eE65-60NxoynwupyOhioHealth Grady Memorial Hospitalodium [Moles/volume] in Serum or PlasmaOrdered By: Christine Sanchez on 14-57-9010Xhevjl [Moles/Vol]Sodium [Moles/volume] in Serum or Zvsgcb155-631 [facility] Hospitalodium [Moles/Vol]137 mmol/NKpjian355-115 [facility] HospitalComment on above:Performed By: #### ADDONUAPLUS, ESR, DIFF CBC, CMP #### [facility] [address] [place] [address] [place] #### CH50, C4, C3 #### [facility] ,Specific gravity Test strip (U) [Rel density]Ordered By: Christine Sanchez on 90-13-5011Cmounahv gravity (U) [Rel density]Specific gravity of Urine by Test strip1.001-1.030[facility] Memorial Hospitalpecific gravity (U) [Rel density]1.0271.001-1.030[facility] HospitalTotal hemolytic complement CH50 assayOrdered By: Christine Sanchez on 28-93-6234Laipv Complement (CH50)58 U/mL>41[facility] East HospitalComment on above:Age Male Female 1 - 30 days Not Estab. Not Estab. 31 days - 6 months >32 >20 7 months - 17 years >39 >39 >17 years >41 >41 NOTE: The adult ( >17 years ) reference intervalrange is used to flag abnormals on this report. If the patient is 17 years old or younger, use the table above to determine out of range values.Performed at: [employer] [id number] Director: Richy Ardon PhD, Phone: [phone] hemolytic complement CH50 assay58 U/mL>41[facility] HospitalComment on above:Age Male Female 1 - 30 days Not Estab. Not Estab. 31 days - 6 months >32 >20 7 months - 17 years >39 >39 >17 years >41 >41 NOTE: The adult ( >17 years ) reference intervalrange is used to flag abnormals on this report. If the patient is 17 years old or younger, use the table above to determine out of range values.Performed at: [employer] [id number] Director: Richy Ardon PhD, Phone: [phone] nitrogen [Mass/volume] in Serum or PlasmaOrdered By: Christine Sanchez on 02-04-6493Btox nitrogen [Mass/Vol]Urea nitrogen [Mass/volume] in Serum or Plasma06-14[facility] HospitalUrea nitrogen [Mass/Vol]22 mg/dLNormalOhio State East HospitalComment on above:Performed By: #### ADDONUAPLUS, ESR, DIFF CBC, CMP #### [address] #### CH50, C4, C3 #### [facility] ,Urobilinogen Test strip (U) [Mass/Vol]Ordered By: Christine Sanchez on 04-18-2025 Urobilinogen (U) [Mass/Vol]Urobilinogen [Mass/volume] in Urine by Test strip Kettering HealthUrobilinogen (U) [Mass/Vol]Normal mg/dL NormalOhio State East HospitalWBC Auto (Bld) [#/Vol]Ordered By: Christine Sanchez on 36-61-7584IUB (Bld) [#/Vol]Leukocytes [#/volume] in Blood by Automated count4.1-10.5FKindred Hospital DaytonpH Test strip (U)Ordered By: Christine Sanchez on 62-94-0866sY (U)pH of Urine by Test strip5.0-9.0[facility] HospitalpH of Urine by Test stripOrdered By: Christine Sanchez on 67-68-8699cT (U)6.0 [pH]Normal5.0-9.0[facility] HospitalComment on above:Order Comment: Name Collection Type:: Clean-Voided MidstreamPerformed By: #### ADDONUAPLUS, ESR, DIFF CBC, CMP #### [address] #### CH50, C4, C3 #### [facility] ,X-ray reportOrdered By: Cy Bill on 67-96-5602Gbdrv reportMETROHEALTH [facility] [address] [place] [address] XRay Report Signed Patient: Valentin Torre MR#: [id number] : 1955 Acct:[id number] Age/Sex: 69 / M ADM Date: 5 Loc: [facility] Room: Type: [facility] Attending [...] Bill M.D. 04/10/2025 1:53 PM Dictation Location: [place] [address] Transcribed By: [facility] 04/10/25 1353 Dictated By: Cy Bill II, MD 04/10/25 1352 Signed By: 04/10/25 1353 [facility] Work Phone: XR knee RT 4V*on 88-29-0426EW knee RT 4V*[facility] [address] [place] [address] XRay Report Signed Patient: Valentin Torre MR#: [id number] 29 : 1955 Acct:[id number] Age/Sex: 69 / M ADM Date: 04/10/25 Loc: [facility] Room: Type: [facility] Attending [...] Bill M.D. 04/10/2025 1:53 PM Dictation Location: [place] [address] Transcribed By: MARV 04/10/25 1353 Dictated By: Cy Bill II, MD 04/10/25 1352 Signed By: 04/10/25 1353[facility] Physician GroupAlanine aminotransferase [Enzymatic activity/volume] in Serum or PlasmaOrdered By: Marley Dumont on 05-68-8970PSR [Catalytic activity/Vol]Alanine aminotransferase [Enzymatic activity/volume] in Serum or Plasma7-52[facility] HospitalAlbumin [Mass/volume] in Serum or Plasma by Bromocresol green (BCG) dye binding metho Ordered By: Marley Dumont on 98-67-3449Atywute BCG dye [Mass/Vol]Albumin [Mass/volume] in Serum or Plasma by Bromocresol green (BCG) dye binding metho 3.5-5.7FKindred Hospital DaytonAlkaline phosphatase [Enzymatic activity/volume] in Serum or PlasmaOrdered By: Marley Dumont on 95-85-1925TVI [Catalytic activity/Vol]Alkaline phosphatase [Enzymatic activity/volume] in Serum or Sgakmb85-421CtolegepyOhio State East HospitalAspartate aminotransferase [Enzymatic activity/volume] in Serum or PlasmaOrdered By: Marley Dumont on 72-16-7509NZO [Catalytic activity/Vol]Aspartate aminotransferase [Enzymatic activity/volume] in Serum or Mrwwyn51-96OrybdoxwdOhio State East Hospital Basophils Auto (Bld) [#/Vol]Ordered By: Marley Dumont on 91-08-2579Drqdumfav (Bld) [#/Vol]Automated basophil count0.0-0.2FKindred Hospital Dayton Basophils/100 WBC Auto (Bld)Ordered By: Marley Lutzr on 02-16-2025 Basophils/100 WBC (Bld)Automated basophil %.[facility] Bilirubin.total [Mass/volume] in Serum or PlasmaOrdered By: Objackie Rashardomar on 21-32-1682Vykqaeazm [Mass/Vol]Bilirubin.total [Mass/volume] in Serum or Plasma 0.3-1.0[facility] HospitalCalcium [Mass/volume] in Serum or Plasma Ordered By: Debbie Rashardomar on 97-77-7368Ermcuwq [Mass/Vol]Calcium [Mass/volume] in Serum or Plasma8.6-10.3FKindred Hospital DaytonCarbon dioxide, total [Moles/volume] in Serum or PlasmaOrdered By: Debbie Rashardpickens county medical centerr on 02-16-2025 CO2 [Moles/Vol]Carbon dioxide, total [Moles/volume] in Serum or PlasmaLow 21.0-31.0[facility] HospitalChloride [Moles/volume] in Serum or PlasmaOrdered By: Obivonneformerly [facility] Milo Biotechnologyomar on 67-99-7228Nmabxbxg [Moles/Vol]Chloride [Moles/volume] in Serum or Rmsckh10-887SfkzdftekOhio State East HospitalComplete Blood Count Auto Diffon 35-20-7574Whakxqumt (Bld) [#/Vol]0.0 10*3/uLNormal 0.0-0.2The [facility] Union Physician GroupComment on above:Result Comment: PERFORMED BY: [place] [address] PATHOLOGIST SHELLFISH CHECKER HECTOR MEJIA M.D.Performed By: #### HS TROP #### [facility] [address] [place] [address] USABasophils/100 WBC (Bld)0.3 %Normal.The [facility] Physician GroupComment on above:Performed By: #### HS TROP #### [facility] [address] [place] [address] USAEosinophils (Bld) [#/Vol]0.1 10*3/uLNormal0.0-0.45The [facility] Union Physician GroupComment on above:Performed By: #### HS TROP #### [place] [address] USAEosinophils/100 WBC (Bld)0.7 %Normal.The [facility] Physician GroupComment on above:Performed By: #### HS TROP #### [place] [address] USAErythrocyte distribution width (RBC) [Ratio]15.4 %High 12.0-14.8The [facility] Physician GroupComment on above:Performed By: #### HS TROP #### [place] [address] USAHematocrit (Bld) [Volume fraction]46.5 %Wtbjjp36.8-50.0The [facility] Physician GroupComment on above:Performed By: #### HS TROP #### [place] [address] USAHemoglobin (Bld) [Mass/Vol]16.0 g/jTJsiixs91.0-17.0The [facility] Physician GroupComment on above:Performed By: #### HS TROP #### [place] [address] USALymphocytes (Bld) [#/Vol]1.0 10*3/uLNormal1.00-4.8The [facility] Physician GroupComment on above:Performed By: #### HS TROP #### [place] [address] USALymphocytes/100 WBC (Bld)11.0 %Normal.The [facility] Physician GroupComment on above:Performed By: #### HS TROP #### [place] [address] USAMCH (RBC) [Entitic mass]31.5 ajWsmsph70.5-35.2The [facility] Physician GroupComment on above:Performed By: #### HS TROP #### [address] [place] [address] USAMCV (RBC) [Entitic vol]91.6 uEKlflxx72.5-101The [facility] Physician GroupComment on above:Performed By: #### HS TROP #### [place] [address] USAMean Corpuscular HGB Conc34.4 g/sLVwzmja13.5-35.6The [facility] Physician GroupComment on above:Performed By: #### HS TROP #### [place] [address] USAMonocytes (Bld) [#/Vol]0.9 10*3/uLHigh0.0-0.8The [facility] Physician GroupComment on above:Performed By: #### HS TROP #### [place] [address] USAMonocytes/100 WBC (Bld)9.6 %Normal.The [facility] Physician GroupComment on above:Performed By: #### HS TROP #### [place] [address] USANeutrophils (Bld) [#/Vol]7.1 10*3/uLNormal1.8-7.7The [facility] Physician GroupComment on above:Performed By: #### HS TROP #### [place] [address] USANeutrophils/100 WBC (Bld)78.4 %Normal.The [facility] Physician GroupComment on above:Performed By: #### HS TROP #### [place] [address] USANRBC%0.1 /100{WBC}Normal0-0.5[facility] Comment on above:Performed By: #### HS TROP #### [place] [address] USAPlatelet mean volume (Bld) [Entitic vol]8.0 fLNormal 6.6-10.1The [facility] Physician GroupComment on above:Performed By: #### HS TROP #### [address] [address] USAPlatelets (Bld) [#/Vol]166 10*3/eHKvltxr757-194Bia [facility] Physician GroupComment on above:Performed By: #### HS TROP #### [facility] [address] [place] [address] USARBC (Bld) [#/Vol]5.08 10*6/uLNormal3.90-5.60The [facility] Physician GroupComment on above:Performed By: #### HS TROP #### [facility] [address] [place] [address] USAWBC (Bld) [#/Vol]9.1 10*3/uLNormal4.1-10.5The [facility] Physician GroupComment on above:Performed By: #### HS TROP #### [place] [address] USAComprehensive Metabolic Panelon 29-16-0351Rgrqpdd [Mass/Vol]4.1 g/dLNormal3.5-5.7The [facility] Physician GroupComment on above: Performed By: #### HS TROP #### [place] [address] USAAlbumin/Globulin [Mass ratio]1.9 {ratio}NormalThe [facility] Union Physician GroupComment on above:Performed By: #### HS TROP #### [facility] [address] [place] [address] USAALP [Catalytic activity/Vol]64 U/HVwurih19-811Ngn [facility] Physician GroupComment on above:Performed By: #### HS TROP #### [facility] [address] [place] [address] USAALT [Catalytic activity/Vol]21 U/LNormal7-52The [facility] Physician GroupComment on above:Performed By: #### HS TROP #### [facility] [address] [place] [address] USAAnion gap [Moles/Vol]12.8 mmol/LNormal6.0-15.0The [facility] Physician GroupComment on above:Performed By: #### HS TROP #### [facility] [address] [place] [address] USAAST [Catalytic activity/Vol]15 U/GPjrunn67-10Hqr [facility] Physician GroupComment on above:Performed By: #### HS TROP #### [facility] [address] [place] [address] USABilirubin [Mass/Vol]0.8 mg/dLNormal0.3-1.0The [facility] Physician GroupComment on above:Performed By: #### HS TROP #### [facility] [address] [place] [address] USACalcium [Mass/Vol]8.7 mg/dLNormal8.6-10.3The [facility] Physician GroupComment on above:Performed By: #### HS TROP #### [place] [address] USAChloride [Moles/Vol]106 mmol/NNcggng57-389Mvq [facility] Physician GroupComment on above:Performed By: #### HS TROP #### [place] [address] USACO2 [Moles/Vol]20.6 mmol/LLow21.0-31.0The [facility] Physician GroupComment on above:Performed By: #### HS TROP #### [place] [address] USACreatinine [Mass/Vol]0.74 mg/dLNormal0.70-1.30The [facility] Physician GroupComment on above:Performed By: #### HS TROP #### [place] [address] USACreatinine Clr Calc Txnoyheu870.16NormalThe [facility] Union Physician GroupComment on above:Result Comment: PERFORMED BY: [place] [address] PATHOLOGIST SHELLFISH CHECKER HECTOR MEJIA M.D.Performed By: #### HS TROP #### [place] [address] USAGFR/1.73 sq M.predicted MDRD (S/P/Bld) [Vol rate/Area] mL/min/{1.73_m2}NormalThe [facility] Union Physician GroupComment on above:Performed By: #### HS TROP #### [facility] [address] [place] [address] USAGlobulin (S) [Mass/Vol]2.2 g/dLNormalThe [facility] Union Physician GroupComment on above:Performed By: #### HS TROP #### [place] [address] USAGlucose [Mass/Vol]85 mg/cTNvtnaq29-724Ycb [facility] Physician GroupComment on above:Result Comment: Random Glucose Reference Range is dependent on time and content of last meal. Glucose of more than 200 mg/dL in a nonstressed, ambulatory subject supports the diagnosis of Diabetes Mellitus. ADA recommended reference rangePerformed By: #### HS TROP #### [place] [address] USAPotassium [Moles/Vol]4.4 mmol/LNormal3.5-5.1The [facility] Physician GroupComment on above:Performed By: #### HS TROP #### [place] [address] USAProtein [Mass/Vol]6.3 g/dLLow6.4-8.9The [facility] Physician GroupComment on above:Performed By: #### HS TROP #### [place] [address] USASodium [Moles/Vol]135 mmol/CQuj003-073Aib [facility] Physician GroupComment on above:Performed By: #### HS TROP #### [place] [address] USAUrea nitrogen [Mass/Vol]21 mg/dLNormal7-25The [facility] Physician GroupComment on above:Performed By: #### HS TROP #### [place] [address] USACreatinine [Mass/volume] in Serum or PlasmaOrdered By: Marley Dumont on 53-34-3359Fkykxeqfpw [Mass/Vol]Creatinine [Mass/volume] in Serum or Plasma0.70-1.30[facility] Medical CenterEosinophils Auto (Bld) [#/Vol]Ordered By: [employer] MedivonneADAPTIX Rashardomar on 90-61-4381Stgcaaxkqhz (Bld) [#/Vol] Automated eosinophil count0.0-0.45[facility] Eosinophils/100 WBC Auto (Bld)Ordered By: ObAlert LogicdaRaNA Therapeuticsomar on 02-16-2025 Eosinophils/100 WBC (Bld)Automated eosinophil %.[facility] HospitalErythrocyte distribution width Auto (RBC) [Ratio]Ordered By: ObivonnedaRaNA Therapeuticsomar on 69-06-5459Tbfavkdeywi distribution width (RBC) [Ratio]Erythrocyte distribution width [Ratio] by Automated ybdqwTjgw89.0-14.8[facility] HospitalGlobulin Calc (S) [Mass/Vol]Ordered By: Obivonnedaclaritza Milo Biotechnologyomar on 33-95-9001Wicfxyxj (S) [Mass/Vol]Serum globulin measurement by calculation (mass/volume)[facility] HospitalGlucose [Mass/volume] in Serum or PlasmaOrdered By: [employer] MedjackieRaNA Therapeuticsomar on 77-12-5364Tlantza [Mass/Vol]Glucose [Mass/volume] in Serum or Nojncm33-446CxkkasicrOhio State East HospitalComment on above:ADA recommended reference rangeRandom Glucose Reference Range is dependent on time and content of last meal. Glucose of more than 200 mg/dL in a nonstressed, ambulatory subject supports the diagnosisof Diabetes Mellitus. Hematocrit Auto (Bld) [Volume fraction]Ordered By: Marley Lutzr on 02-16-2025 Hematocrit (Bld) [Volume fraction]Hematocrit [Volume Fraction] of Blood by Automated count38.8-50.0[facility] HospitalHemoglobin [Mass/volume] in BloodOrdered By: [employer] MedivonneSlickLoginr on 00-97-2144Tgpcvtguva (Bld) [Mass/Vol]Hemoglobin [Mass/volume] in Blood13.0-17.0[facility] HospitalLeukocytes [#/volume] corrected for nucleated erythrocytes in Blood by Automated counOrdered By: Motivanor on 90-44-0670LWT corrected for nucl RBC Auto (Bld) [#/Vol]Leukocytes [#/volume] corrected for nucleated erythrocytes in Blood by Automated coun4.1-10.5FKindred Hospital DaytonLymphocytes Auto (Bld) [#/Vol]Ordered By: Obaydah Daromar on 21-18-7017Ipmjnabxqku (Bld) [#/Vol]Lymphocytes [#/volume] in Blood by Automated count1.00-4.8[facility] HospitalLymphocytes/100 WBC Auto (Bld)Ordered By: Obaydah Daromar on 64-00-7719Dhuueapffmi/100 WBC (Bld)Lymphocytes/100 leukocytes in Blood by Automated count.[facility] HospitalMCH Auto (RBC) [Entitic mass] Ordered By: Obivonnedah Daromar on 41-16-0697FBN (RBC) [Entitic mass]MCH [Entitic mass] by Automated count27.5-35.2FKindred Hospital DaytonMCHC Auto (RBC) [Mass/Vol]Ordered By: Obaydah Daromar on 74-95-6630ZEIT (RBC) [Mass/Vol] MCHC [Mass/volume] by Automated count32.5-35.6FKindred Hospital Dayton MCV Auto (RBC) [Entitic vol]Ordered By: Obivonnedah Daromar on 44-51-4301OQS (RBC) [Entitic vol]MCV [Entitic volume] by Automated count83.5-101[facility] HospitalMonocytes Auto (Bld) [#/Vol]Ordered By: Obivonnedah Daromar on 17-29-4646Fdxoloobc (Bld) [#/Vol]Automated blood monocyte countHigh0.0-0.8 [facility] HospitalMonocytes/100 WBC Auto (Bld)Ordered By: Obaydah Daromar on 11-92-2966Txbkkxqmu/100 WBC (Bld)Automated monocyte %.[facility] HospitalNeutrophils Auto (Bld) [#/Vol]Ordered By: Obaydah Daromar on 43-87-0656Thymqbdkwvx (Bld) [#/Vol]Neutrophils [#/volume] in Blood by Automated count1.8-7.7Fire[facility] Regional Medical CenterNeutrophils/100 WBC Auto (Bld)Ordered By: Issadaclaritza Wetzelomar on 24-32-4756Wejrxxegxic/100 WBC (Bld)Automated neutrophil %.[facility] HospitalNo Panel InformationOrdered By: Marley Wetzelomar on 83-24-7633Kxlxciwan GFR (CKD-EPI)> 60.0 mL/MinOhio State East HospitalPharmacy Creatinine Clearance (Qbqq817.16[facility] HospitalNucleated erythrocytes [Presence] in Blood by Automated countOrdered By: Marley Wetzelomar on 73-04-6253Zluuikzgk RBC Auto Ql (Bld) Nucleated erythrocytes [Presence] in Blood by Automated count0-0.5FKindred Hospital DaytonPlatelet mean volume Auto (Bld) [Entitic vol]Ordered By: Obivonnedaclaritza Wetzelomar on 95-34-2517Tulvtwln mean volume (Bld) [Entitic vol]Platelet mean volume [Entitic volume] in Blood by Automated count6.6-10.1FKindred Hospital DaytonPlatelets Auto (Bld) [#/Vol]Ordered By: Obivonnedaclaritza Wetzelomar on 32-33-4656Puwzqosuq (Bld) [#/Vol]Platelets [#/volume] in Blood by Automated qgoak381-123MhlnqyyvyOhio State East HospitalPotassium [Moles/volume] in Serum or PlasmaOrdered By: Marley Wetzelomar on 84-94-9904Ijxsamyxs [Moles/Vol]Potassium [Moles/volume] in Serum or Plasma3.5-5.1FKindred Hospital Dayton Protein [Mass/volume] in Serum or PlasmaOrdered By: Obhayde Wetzelomar on 57-55-2987Pehqvpb [Mass/Vol]Protein [Mass/volume] in Serum or PlasmaLow6.4-8.9 [facility] HospitalRBC Auto (Bld) [#/Vol]Ordered By: Obivonnedaclaritza Wetzelomar on 94-50-0712ZJP (Bld) [#/Vol]Erythrocytes [#/volume] in Blood by Automated count3.90-5.60[facility] Hospitalerum or plasma albumin/globulin mass ratioOrdered By: Obivonnedaclaritza Wetzelomar on 02-16-2025 Albumin/Globulin [Mass ratio]Serum or plasma albumin/globulin mass ratio [facility] Hospitalerum or plasma anion gap determinationOrdered By: Marley Dumont on 05-90-9956Pzcls gap [Moles/Vol]Serum or plasma anion gap determination6.0-15.0[facility] Hospitalodium [Moles/volume] in Serum or PlasmaOrdered By: Marley Dumont on 77-71-9794Bssvns [Moles/Vol]Sodium [Moles/volume] in Serum or OhhjzcVzy066-178RctqzhwafOhio State East Hospital Troponin I High Sensitivityon 19-22-2617Sukqokzs I High Jfxwjwuysvf07Vbdpjh2-94 The [facility] Physician GroupComment on above:Result Comment: The Troponin units of report have been changed to meet the Chest Pain Accreditation requirement, element EC5.M1l2. Troponin units are changed from pg/ml to ng/L. Also, the decimal is removed and results are in whole numbers. PERFORMED BY: [place] [address] PATHOLOGIST SHELLFISH CHECKER HECTOR MEJIA M.D.Performed By: #### CRP #### [place] [address] USATroponin I.cardiac [Mass/volume] in Serum or Plasma by Detection limit <= 0.01 ng/Ordered By: Marley Dumont on 26-59-7105Toxqfhzj I.cardiac DL <= 0.01 ng/mL [Mass/Vol]Troponin I.cardiac [Mass/volume] in Serum or Plasma by Detection limit <= 0.01 ng/0-20[facility] [facility] Comment on above:The Troponin units of report have been changed to meet the Chest Pain Accreditation requirement, element EC5.M1l2. Troponin units are changed from pg/ml to ng/L. Also, the decimal is removed and results are in whole numbers.Urea nitrogen [Mass/volume] in Serum or PlasmaOrdered By: Marley Dumont on 10-60-2906Hwsb nitrogen [Mass/Vol]Urea nitrogen [Mass/volume] in Serum or Plasma7-[facility] HospitalWBC Auto (Bld) [#/Vol] Ordered By: Marley Dumont on 43-10-7595AUL (Bld) [#/Vol]Leukocytes [#/volume] in Blood by Automated count4.1-10.5FKindred Hospital DaytonB-Type Natriuretic Peptideon 02-73-4655Jxjmocplsew peptide B (Bld) [Mass/Vol]31.0 pg/mL Normal5-100The [facility] Physician GroupComment on above:Result Comment: PERFORMED BY: [place] [address] PATHOLOGIST SHELLFISH CHECKER HECTOR MEJIA M.D.Performed By: #### HS TROP #### [place] [address] USABasic Metabolic Panelon 06-02-7670Ufbko gap [Moles/Vol] 12.6 mmol/LNormal6.0-15.0The [facility] Physician GroupComment on above:Performed By: #### CRP #### [place] [address] USACalcium [Mass/Vol]9.6 mg/dLNormal8.6-10.3The [facility] Physician GroupComment on above:Performed By: #### CRP #### [place] [address] USAChloride [Moles/Vol]105 mmol/VCaqdmq05-788Bmc [facility] Physician GroupComment on above:Performed By: #### CRP #### [place] [address] USACO2 [Moles/Vol]22.4 mmol/PDdqvvj63.0-31.0The [facility] Physician GroupComment on above:Performed By: #### CRP #### [place] [address] USACreatinine [Mass/Vol]0.83 mg/dLNormal0.70-1.30The [facility] Physician GroupComment on above:Performed By: #### CRP #### [place] [address] USACreatinine Clr Calc Nafogcxz10.68NormalThe [facility] Union Physician GroupComment on above:Result Comment: PERFORMED BY: [place] [address] PATHOLOGIST SHELLFISH CHECKER HECTOR MEJIA M.D.Performed By: #### CRP #### [place] [address] USAGFR/1.73 sq M.predicted MDRD (S/P/Bld) [Vol rate/Area] mL/min/{1.73_m2}NormalThe [facility] Union Physician GroupComment on above:Performed By: #### CRP #### [place] [address] USAGlucose [Mass/Vol]105 mg/eILhfe92-268Nqd [facility] Physician GroupComment on above:Result Comment: Random Glucose Reference Range is dependent on time and content of last meal. Glucose of more than 200 mg/dL in a nonstressed, ambulatory subject supports the diagnosis of Diabetes Mellitus. ADA recommended reference rangePerformed By: #### CRP #### [place] [address] USAPotassium [Moles/Vol]4.0 mmol/LNormal3.5-5.1The [facility] Physician GroupComment on above:Performed By: #### CRP #### [place] [address] USASodium [Moles/Vol]136 mmol/WRxsuly262-395Wex [facility] Physician GroupComment on above:Performed By: #### CRP #### [place] [address] USAUrea nitrogen [Mass/Vol]25 mg/dLNormal7-25The [facility] Physician GroupComment on above:Performed By: #### CRP #### [place] [address] USABasophils Auto (Bld) [#/Vol]Ordered By: Romel Orta on 55-19-7833Hedtpesup (Bld) [#/Vol]Automated basophil count0.0-0.2[facility] CenterBasophils/100 WBC Auto (Bld)Ordered By: Romel Orta on 36-02-4838Ikrrmwxyo/100 WBC (Bld)Automated basophil %.[facility] HospitalCalcium [Mass/volume] in Serum or PlasmaOrdered By: Romel Orta on 54-11-1398Jtbviix [Mass/Vol]Calcium [Mass/volume] in Serum or Plasma 8.6-10.3FKindred Hospital DaytonCarbon dioxide, total [Moles/volume] in Serum or PlasmaOrdered By: Romel Orta on 25-75-5223AT1 [Moles/Vol]Carbon dioxide, total [Moles/volume] in Serum or Jaqcbq30.0-31.0[facility] HospitalChloride [Moles/volume] in Serum or PlasmaOrdered By: Romel Orta on 52-75-9526Iyvyckyw [Moles/Vol]Chloride [Moles/volume] in Serum or Murwug79-858SzycwkxkaOhio State East HospitalComplete Blood Count Auto Diffon 42-85-5323Vgwmbnxhb (Bld) [#/Vol]0.0 10*3/uLNormal0.0-0.2The [facility] Physician GroupComment on above:Result Comment: PERFORMED BY: [place] [address] PATHOLOGIST SHELLFISH CHECKER HECTOR MEJIA M.D.Performed By: #### HS TROP #### [facility] [address] [place] [address] USABasophils/100 WBC (Bld)0.3 %Normal.The [facility] Physician GroupComment on above:Performed By: #### HS TROP #### [facility] [address] [place] [address] USAEosinophils (Bld) [#/Vol]0.1 10*3/uLNormal0.0-0.45The [facility] Physician GroupComment on above:Performed By: #### HS TROP #### [facility] [address] [place] [address] USAEosinophils/100 WBC (Bld)0.5 %Normal.The [facility] Physician GroupComment on above:Performed By: #### HS TROP #### [place] [address] USAErythrocyte distribution width (RBC) [Ratio]15.0 %High 12.0-14.8The [facility] Physician GroupComment on above:Performed By: #### HS TROP #### [place] [address] USAHematocrit (Bld) [Volume fraction]48.4 %Wvjnbz50.8-50.0The [facility] Physician GroupComment on above:Performed By: #### HS TROP #### [place] [address] USAHemoglobin (Bld) [Mass/Vol]16.4 g/cUKqayeo02.0-17.0The [facility] Physician GroupComment on above:Performed By: #### HS TROP #### [place] [address] USALymphocytes (Bld) [#/Vol]1.0 10*3/uLNormal1.00-4.8The [facility] Physician GroupComment on above:Performed By: #### HS TROP #### [place] [address] USALymphocytes/100 WBC (Bld)10.3 %Normal.The [facility] Physician GroupComment on above:Performed By: #### HS TROP #### [place] [address] USAMCH (RBC) [Entitic mass]31.0 qqLabjbo27.5-35.2The [facility] Physician GroupComment on above:Performed By: #### HS TROP #### [place] [address] USAMCV (RBC) [Entitic vol]91.3 aOYlduzz76.5-101The [facility] Physician GroupComment on above:Performed By: #### HS TROP #### [place] [address] USAMean Corpuscular HGB Conc33.9 g/qSCvnoxm64.5-35.6The [facility] Physician GroupComment on above:Performed By: #### HS TROP #### [facility] [address] [place] [address] USAMonocytes (Bld) [#/Vol]1.3 10*3/uLHigh0.0-0.8The [facility] Physician GroupComment on above:Performed By: #### HS TROP #### [facility] [address] [place] [address] USAMonocytes/100 WBC (Bld)17.25 %Normal0.00-20.00The [facility] Physician GroupComment on above:Performed By: #### HS TROP #### [facility] [address] [place] [address] USAMonocytes/100 WBC (Bld)14.0 %Normal.The [facility] Physician GroupComment on above:Performed By: #### HS TROP #### [facility] [address] [place] [address] USANeutrophils (Bld) [#/Vol]7.1 10*3/uLNormal1.8-7.7The [facility] Physician GroupComment on above:Performed By: #### HS TROP #### [place] [address] USANeutrophils/100 WBC (Bld)74.9 %Normal.The [facility] Physician GroupComment on above:Performed By: #### HS TROP #### [facility] [address] [place] [address] USANRBC%0.1 /100{WBC}Normal0-0.5The [facility] Comment on above:Performed By: #### HS TROP #### [facility] [address] [place] [address] USAPlatelet mean volume (Bld) [Entitic vol]7.9 fLNormal 6.6-10.1The [facility] Physician GroupComment on above:Performed By: #### HS TROP #### [facility] [address] [place] [address] USAPlatelets (Bld) [#/Vol]204 10*3/tZIltnke189-760Ifk [facility] Physician GroupComment on above:Performed By: #### HS TROP #### [facility] [address] [place] [address] USARBC (Bld) [#/Vol]5.30 10*6/uLNormal3.90-5.60The [facility] Physician GroupComment on above:Performed By: #### HS TROP #### [facility] [address] [place] [id number] USAWBC (Bld) [#/Vol]9.5 10*3/uLNormal4.1-10.5The [facility] Physician GroupComment on above:Performed By: #### HS TROP #### [facility] [address] [place] [id number] USACreatine Kinaseon 70-40-7912PR [Catalytic activity/Vol]50 U/NHqkmei26-297Wmj [facility]ician [facility] Medical CenterComment on above:Result Comment: PERFORMED BY: [place] [address] PATHOLOGIST SHELLFISH CHECKER HECTOR MEJIA M.D.Performed By: #### HS TROP #### [place] [id number] USACreatine kinase [Enzymatic activity/volume] in Serum or PlasmaOrdered By: Romel Orta on 19-08-6861MP [Catalytic activity/Vol] Creatine kinase [Enzymatic activity/volume] in Serum or Ikmqjt87-897RolpxafkiOhio State East HospitalCreatinine [Mass/volume] in Serum or PlasmaOrdered By: Romel Orta on 26-99-6982Footuluxgp [Mass/Vol]Creatinine [Mass/volume] in Serum or Plasma0.70-1.30[facility] HospitalD-Dimer High Sensitivityon 20-00-8708A-Dimer High Audghyxmmux245 ng/mLNormal0-243The [facility]ician [facility] Medical CenterComment on above:Result Comment: The reference range for D-dimer is [...] coagulation studies. Please contact the laboratory at [phone] for redraw instructions. PERFORMED BY: [place] [address] PATHOLOGIST SHELLFISH CHECKER HECTOR MEJIA M.D.Performed By: #### CRP #### [place] [id number] USAECG 12 lead ECGon 29-48-4176VSL 12 lead ECGMETROHEALTH [facility] [place] [address] [place] [address] Electrocardiograph Report Signed Patient: Valentin Torre MR#: [id number] [birth year] : 1955 Acct:[id number] Age/Sex: 69 / M ADM Date: 02/15/25 Loc: Room: [address] [place] [address] Type: DIS INOo Attending Dr: Gabi Almanzar [...] in Inferior leads Confirmed by Bayron Tim ([id number]) on 02/19/2025 5:14:22 AM Referred By: Electronically Signed By: Bayron Tim Transcribed By: MUS Signed By Bayron Tim MD 02/19/25 0514Sh[facility] Physician GroupECG 12 lead ECGMETROHEALTH [facility]IN [facility] [place] [address] Electrocardiograph Report Signed Patient: Valentin Torre MR#: [id number] [birth year] : 1955 Acct:[id number] Age/Sex: 69 / M ADM Date: 02/15/25 Loc: ER Room: Type: [facility] ER Attending Dr: Ordering Provider: Romel [...] wave abnormality Confirmed by Martha Gomes MD ([id number]) on 02/15/2025 11:27:03 AM Referred By: Electronically Signed By: Martha Gomes MD Transcribed By: MUS Signed By Martha Gomes MD 01/20 07/15 1127Sh[facility] Physician GroupEosinophils Auto (Bld) [#/Vol] Ordered By: Romel Orta on 98-45-5624Nytqzfkxqlc (Bld) [#/Vol]Automated eosinophil count0.0-0.45[facility] HospitalEosinophils/100 WBC Auto (Bld)Ordered By: Romel Orta on 95-50-9694Rxyodnbpzzo/100 WBC (Bld) Automated eosinophil %.[facility] HospitalErythrocyte distribution width Auto (RBC) [Ratio]Ordered By: Romel Orta on 19-20-8451Ptnzldotiop distribution width (RBC) [Ratio]Erythrocyte distribution width [Ratio] by Automated etuvnPlds81.0-14.8[facility] HospitalFibrin D-dimer [Presence] in Platelet poor plasma by Latex agglutinationOrdered By: Martha Gomes on 68-21-1592Vroged D-dimer LA Ql (PPP)Fibrin D-dimer [Presence] in Platelet poor plasma by Latex agglutination0-243Ohio [facility] HospitalComment on above:The reference range for D-dimer is <243 ng/mL [...] coagulation studies. Please contact the laboratory at [phone] for redraw instructions.Glucose [Mass/volume] in Serum or PlasmaOrdered By: Romel Orta on 09-46-3280Uakruhd [Mass/Vol] Glucose [Mass/volume] in Serum or UjuhpuLkfc55-142ZwevmwsduOhio State East HospitalComment on above:ADA recommended reference rangeRandom Glucose Reference Range is dependent on time and content of last meal. Glucose of more than 200 mg/dL in a nonstressed, ambulatory subject supports the diagnosisof Diabetes Mellitus.Hematocrit Auto (Bld) [Volume fraction]Ordered By: Romel Orta on 07-34-2660Aqeajfmycj (Bld) [Volume fraction]Hematocrit [Volume Fraction] of Blood by Automated count38.8-50.0[facility] HospitalHemoglobin [Mass/volume] in BloodOrdered By: Romel Orta on 36-37-9479Tscvlfzral (Bld) [Mass/Vol]Hemoglobin [Mass/volume] in Blood13.0-17.0[facility] HospitalINR in Platelet poor plasma by Coagulation assayOrdered By: Romel Orta on 45-84-2281HGS Coag (PPP) [Relative time]INR in Platelet poor plasma by Coagulation assayOhio State East HospitalComment on above:INR Therapeutic Range A) Pre- and Peroperative OAT started two weeks before surgery. NOT HIP SURGERY: 1.5 - 2.5 HIP SURGERY: 2 - 3B) Primary and secondary prevention of venous THROMBOSIS: 2 - 3C) Active venous thrombosis, pulmonary embolismand prevention of recurrent venous thrombosis: 2 - 3D) Prevention of arterial thromboembolismincluding patients with mechanical heart valves: 3 - 4.5 Leukocytes [#/volume] corrected for nucleated erythrocytes in Blood by Automated counOrdered By: Romel Orta on 67-48-1238HTM corrected for nucl RBC Auto (Bld) [#/Vol]Leukocytes [#/volume] corrected for nucleated erythrocytes in Blood by Automated coun4.1-10.5FKindred Hospital DaytonLymphocytes Auto (Bld) [#/Vol]Ordered By: Romel Orta on 87-06-9651Mowwmdfkxyy (Bld) [#/Vol] Lymphocytes [#/volume] in Blood by Automated count1.00-4.8[facility] HospitalLymphocytes/100 WBC Auto (Bld)Ordered By: Romel Orta on 67-67-6410Sozcrwgjhdr/100 WBC (Bld)Lymphocytes/100 leukocytes in Blood by Automated count.[facility] HospitalMCH Auto (RBC) [Entitic mass] Ordered By: Romel Orta on 10-27-5129HYA (RBC) [Entitic mass]MCH [Entitic mass] by Automated count27.5-35.2FKindred Hospital DaytonMCHC Auto (RBC) [Mass/Vol]Ordered By: Romel Orta on 79-47-2942KNZR (RBC) [Mass/Vol] MCHC [Mass/volume] by Automated count32.5-35.6FKindred Hospital Dayton MCV Auto (RBC) [Entitic vol]Ordered By: Romel Orta on 27-20-7716BLQ (RBC) [Entitic vol]MCV [Entitic volume] by Automated count83.5-101Ohio [facility] HospitalMonocyte distribution width [Entitic volume] in Blood by Automated Ordered By: Romel Orta on 31-92-9709Mtuoreqy distribution width Auto (Bld) [Entitic vol]Monocyte distribution width [Entitic volume] in Blood by Automated 0.00-20.00[facility] HospitalMonocytes Auto (Bld) [#/Vol]Ordered By: Romel Orta on 69-82-4451Snxmudlzq (Bld) [#/Vol]Automated blood monocyte countHigh0.0-0.8[facility] HospitalMonocytes/100 WBC Auto (Bld)Ordered By: Romel Orta on 58-52-9497Zcjcnriby/100 WBC (Bld)Automated monocyte %.[facility] HospitalNatriuretic peptide B [Mass/Vol] Ordered By: Romel Orta on 98-75-5575Ldavkedwynq peptide B (Bld) [Mass/Vol] BNP ser/plas5-100[facility] HospitalNeutrophils Auto (Bld) [#/Vol] Ordered By: Romel Orta on 57-09-1422Hmmixahacmt (Bld) [#/Vol]Neutrophils [#/volume] in Blood by Automated count1.8-7.7FKindred Hospital Dayton Neutrophils/100 WBC Auto (Bld)Ordered By: Romel Orta on 02-15-2025 Neutrophils/100 WBC (Bld)Automated neutrophil %.[facility] HospitalNo Panel InformationOrdered By: Romel Orta on 34-26-9410Dljicamrl GFR (CKD-EPI)> 60.0 mL/MinOhio State East HospitalPharmacy Creatinine Clearance (Chem96.68Ohio [facility] HospitalNucleated erythrocytes [Presence] in Blood by Automated countOrdered By: Romel Orta on 02-15-2025 Nucleated RBC Auto Ql (Bld)Nucleated erythrocytes [Presence] in Blood by Automated count0-0.5FKindred Hospital DaytonPlatelet mean volume Auto (Bld) [Entitic vol]Ordered By: Romel Orta on 14-63-4024Mhrphsjb mean volume (Bld) [Entitic vol]Platelet mean volume [Entitic volume] in Blood by Automated count6.6-10.1FKindred Hospital DaytonPlatelets Auto (Bld) [#/Vol]Ordered By: Romel Orta on 58-80-4875Mwlpsbxjp (Bld) [#/Vol] Platelets [#/volume] in Blood by Automated rsqam724-583WgazododlOhio State East HospitalPotassium [Moles/volume] in Serum or PlasmaOrdered By: Romel Orta on 08-41-6142Gjtncbesi [Moles/Vol]Potassium [Moles/volume] in Serum or Plasma3.5-5.1FKindred Hospital DaytonProthrombin Time INRon 02-15-2025 INR Coag (PPP) [Relative time]1.1 {INR}NormalThe [facility] Group Comment on above:Result Comment: INR Therapeutic Range A) Pre- and [...] heart valves: 3 - 4.5 PERFORMED BY: [place] [address] PATHOLOGIST SHELLFISH CHECKER HECTOR MEJIA M.D.Performed By: #### HS TROP #### [facility] [address] [place], [place] [id number] USAPT Coag (PPP) [Time]12.0 sNormal9.0-12.9The [facility] Union Physician GroupComment on above:Result Comment: A hematocrit value greater than 55% may lead to inaccurate results in coagulation testing. Patients having hematocrit values >55% require a special collection tube for coagulation studies. Please contact the laboratory at [phone] for redraw instructions.Performed By: #### HS TROP #### [facility] [address] [place], [place] [address] USAProthrombin time (PT)Ordered By: Romel Orta on 35-25-2852QS Coag (PPP) [Time]Prothrombin time (PT)9.0-12.9[facility] HospitalComment on above:A hematocrit value greater than 55% may lead to inaccurate results in coagulation testing. Patientshaving hematocrit values >55% require a special collection tube for coagulation studies. Please contact the laboratory at [phone] for redraw instructions.RBC Auto (Bld) [#/Vol]Ordered By: Romel Orta on 17-55-2981KDU (Bld) [#/Vol]Erythrocytes [#/volume] in Blood by Automated count3.90-5.60[facility] Hospitalerum or plasma anion gap determinationOrdered By: Romel Orta on 30-32-8836Weicw gap [Moles/Vol]Serum or plasma anion gap determination6.0-15.0[facility] Hospitalodium [Moles/volume] in Serum or PlasmaOrdered By: Romel Orta on 54-91-4091Ogwbnt [Moles/Vol]Sodium [Moles/volume] in Serum or Plasma 136-145Ohio [facility] East HospitalTroponin I High Sensitivityon 02-15-2025 Troponin I High Otxlbtwzzzj83Nzhctb4-75Rtm [facility] Physician GroupComment on above:Result Comment: The Troponin units of report have been changed to meet the Chest Pain Accreditation requirement, element EC5.M1l2. Troponin units are changed from pg/ml to ng/L. Also, the decimal is removed and results are in whole numbers. PERFORMED BY: [place] [address] PATHOLOGIST SHELLFISH CHECKER HECTOR MEJIA M.D.Performed By: #### HS TROP #### [place] [address] USAPerformed By: #### CRP #### [place] [address] USATroponin I High Zkaxxspbtoy6Smwmup3-13Dji [facility] Physician GroupComment on above:Result Comment: The Troponin units of report have been changed to meet the Chest Pain Accreditation requirement, element EC5.M1l2. Troponin units are changed from pg/ml to ng/L. Also, the decimal is removed and results are in whole numbers. PERFORMED BY: [place] [address] PATHOLOGIST SHELLFISH CHECKER HECTOR MEJIA M.D.Performed By: #### HS TROP #### [place] [address] USATroponin I.cardiac [Mass/volume] in Serum or Plasma by Detection limit <= 0.01 ng/Ordered By: Martha Gomes on 56-72-4841Tjchdkxn I.cardiac DL <= 0.01 ng/mL [Mass/Vol]Troponin I.cardiac [Mass/volume] in Serum or Plasma by Detection limit <= 0.01 ng/0-[facility] Comment on above:The Troponin units of report have been changed to meet the Chest Pain Accreditation requirement, element EC5.M1l2. Troponin units are changed from pg/ml to ng/L. Also, the decimal is removed and results are in whole numbers.Urea nitrogen [Mass/volume] in Serum or PlasmaOrdered By: Romel Orta on 48-45-0256Vluv nitrogen [Mass/Vol]Urea nitrogen [Mass/volume] in Serum or Plasma06-14[facility] HospitalWBC Auto (Bld) [#/Vol] Ordered By: Romel Orta on 62-11-1859JGW (Bld) [#/Vol]Leukocytes [#/volume] in Blood by Automated count4.1-10.5FKindred Hospital DaytonX-ray reportOrdered By: Alo Mayer on 15-55-3002Bowgx reportMETROHEALTH MAIN [facility]AMP[facility] [place] [address] XRay Report Signed Patient: Valentin Torre MR#: [id number] : 1955 Acct:[id number] Age/Sex: 69 / M ADM Date: 5 Loc: ER Room: Type: [facility] ER Attending Dr: Copies to: MD [...] Alo Mayer M.D.02/15/2025 10:47 AM Dictation Location: [place] [address] Transcribed By: MARV 02/15/25 1047 Dictated By: Alo Mayer MD 02/15/25 1043 Signed By: 02/15/[address] [place] [address] Work Phone: XR chest 1V portableon 72-28-9791EY chest 1V portable [facility] Main [address] [address] XRay Report Signed Patient: Valentin Torre MR#: [id number] [birth year] : 1955 Acct:[id number] Age/Sex: 69 / M ADM Date: 02/15/25 Loc: ER Room: Type: [facility] ER Attending Dr: Copies to: MD [...] Alo Mayer M.D.02/15/2025 10:47 AM Dictation Location: [place] [address] Transcribed By: MARV 02/15/25 104 Dictated By: Alo Mayer MD 02/15/25 1043 Signed By: 02/15/[address] [place] [address] Physician GroupX-ray reportOrdered By: Christine Alexandra on 62-96-9135Evuwt reportMETROHEALTH MAIN CAMPUS MEDICAL [facility]ENTER Main [address] [address] XRay Report Signed Patient: Valentin Torre MR#: [id number] : 1955 Acct:[id number] Age/Sex: 69 / M ADM Date: 5 Loc: XD Room: Type: [facility] CLI Attending Dr: Sascha Sutton DO [...] Christine Alexandra M.D.01/25/2025 10:48 PM Dictation Location: [place] [address] Transcribed By: [facility] 01/25/252247 Dictated By: Christine Alexandra MD 01/25/252243 Signed By: 01/25/252247 [facility] Work Phone: XR ankle RT min 3V*on 34-70-6230FW ankle RT min 3V* [facility] [place] [address] [place] [address] XRay Report Signed Patient: Valentin Torre MR#: [id number] 29 : 1955 Acct:[id number] Age/Sex: 69 / M ADM Date: 01/25/25 Loc: XD Room: Type: [facility] Attending Dr: Sascha Sutton DO Copies [...] Christine Alexandra M.D.01/25/2025 10:48 PM Dictation Location: [place] [address] Transcribed By: MARV 01/25/252247 Dictated By: Crhistine Alexandra MD 01/25/252243 Signed By: 01/25/252247ShorePoint [facility] Pun[facility] Gorda Physician GroupAlanine aminotransferase [Enzymatic activity/volume] in Serum or PlasmaOrdered By: Romel Davis on 51-94-4326SJH [Catalytic activity/Vol]Alanine aminotransferase [Enzymatic activity/volume] in Serum or Plasma7-[facility] HospitalAlbumin [Mass/volume] in Serum or Plasma by Bromocresol green (BCG) dye binding metho Ordered By: Romel Davis on 88-40-0299Wjkeete BCG dye [Mass/Vol]Albumin [Mass/volume] in Serum or Plasma by Bromocresol green (BCG) dye binding metho 3.5-5.7FKindred Hospital DaytonAlkaline phosphatase [Enzymatic activity/volume] in Serum or PlasmaOrdered By: Romel Davis on 88-92-2217NGC [Catalytic activity/Vol]Alkaline phosphatase [Enzymatic activity/volume] in Serum or Kmncsx94-077HrdyejrfaOhio State East HospitalAppearance of UrineOrdered By: Romel Davis on 95-03-7917Phmotmuuxf (U)Urine appearanceCleProtestant Deaconess HospitalAspartate aminotransferase [Enzymatic activity/volume] in Serum or PlasmaOrdered By: Romel Davis on 22-20-5371ISD [Catalytic activity/Vol]Aspartate aminotransferase [Enzymatic activity/volume] in Serum or Dfnhnc96-47YkvmaougsOhio State East HospitalBacteria [Presence] in Urine by AutomatedOrdered By: Romel Davis on 97-50-1471Szvlaelh Auto Ql (U)Bacteria [Presence] in Urine by AutomatedNone SeenOhio State East Hospital Basophils Auto (Bld) [#/Vol]Ordered By: Romel Davis on 47-27-4783Xxzmqdbup (Bld) [#/Vol]Automated basophil count0.0-0.2FKindred Hospital Dayton Basophils/100 WBC Auto (Bld)Ordered By: Romel Dvais on 01-14-2025 Basophils/100 WBC (Bld)Automated basophil %.[facility] Bilirubin Test strip Ql (U)Ordered By: Romel Davis on 58-91-7309Mkhjolquw Ql (U)Bilirubin.total [Presence] in Urine by Test stripNegativeOhio State East HospitalBilirubin.total [Mass/volume] in Serum or PlasmaOrdered By: Romel Davis on 22-03-6163Zuwpawugx [Mass/Vol]Bilirubin.total [Mass/volume] in Serum or Plasma0.3-1.0[facility] HospitalCalcium [Mass/volume] in Serum or PlasmaOrdered By: Romel Davis on 94-47-0656Nemrwfg [Mass/Vol] Calcium [Mass/volume] in Serum or Plasma8.6-10.3FKindred Hospital DaytonCarbon dioxide, total [Moles/volume] in Serum or PlasmaOrdered By: Romel Davis on 29-16-6013TG6 [Moles/Vol]Carbon dioxide, total [Moles/volume] in Serum or Pzsoau93.0-31.0[facility] HospitalChloride [Moles/volume] in Serum or PlasmaOrdered By: Romel Davis on 48-78-0559Dbvjmhoe [Moles/Vol] Chloride [Moles/volume] in Serum or Wpsdga94-390XcnmedpypOhio State East HospitalColor Auto (U)Ordered By: Romel Davis on 44-73-0284Kuvlk (U)Color of Urine by AutoYellowOhio State East HospitalComplement C3on 01-14-2025 Complement C3129 mg/jCOduqqt80-734Xrb [facility] Physician GroupComment on above: Result Comment: Performed at: - [facility] [id number] [employer] Counter Clerk: Richy Ardon PhD, Phone: [phone] By: #### SJOGRENS #### [facility] ,Complement C4on 14-30-2534Ufswcstkqf C415 mg/cFFjpfyz87-73Tuy [facility] Physician GroupComment on above:Result Comment: PERFORMED BY: [place] [address] [place] [address] PATHOLOGIST SHELLFISH CHECKER HECTOR MEJIA M.D.Performed By: #### SJOGRENS #### [facility] ,Complement Total (CH50)on 68-43-5420Nypxmztjuu Total (CH50)57Normal>41The [facility] Physician GroupComment on above:Result Comment: Age Male Female 1 - 30 [...] determine out of range values. Performed at: [facility] Lab[address] [id number] [employer] Counter Clerk: Richy Ardon PhD, Phone: [phone] PERFORMED BY: [address] [address] PATHOLOGIST SHELLFISH CHECKER HECTOR MEJIA M.D.Performed By: #### SJOGRENS #### [facility] ,Comprehensive Metabolic Panelon 21-55-5627Ipgbfuk [Mass/Vol]3.9 g/dLNormal 3.5-5.7The [facility] Physician GroupComment on above:Performed By: #### SJOGRENS #### [facility] ,Albumin/Globulin [Mass ratio]1.9 {ratio}NormalThe [facility] Comment on above:Performed By: #### SJOGRENS #### [facility] ,ALP [Catalytic activity/Vol]81 U/RDaouuo35-283Dxv [facility] Comment on above:Result Comment: PERFORMED BY: [address] [address] PATHOLOGIST SHELLFISH CHECKER HECTOR MEJIA M.D.Performed By: #### SJOGRENS #### [facility] ,ALT [Catalytic activity/Vol]39 U/LNormal7-52The [facility] Comment on above:Performed By: #### SJOGRENS #### [facility] ,Anion gap [Moles/Vol]10.8 mmol/LNormal6.0-15.0[facility] Comment on above:Performed By: #### SJOGRENS #### [facility] ,AST [Catalytic activity/Vol]23 U/XShweoo86-36Thb [facility] Comment on above:Performed By: #### SJOGRENS #### [facility] ,Bilirubin [Mass/Vol]0.6 mg/dLNormal0.3-1.0The [facility] Physician GroupComment on above:Performed By: #### SJOGRENS #### [facility] ,Calcium [Mass/Vol]9.1 mg/dLNormal8.6-10.3The [facility] Physician GroupComment on above:Performed By: #### SJOGRENS #### [facility] ,Chloride [Moles/Vol]106 mmol/OKzrioe97-584Otd [facility] Physician GroupComment on above:Performed By: #### SJOGRENS #### [facility] ,CO2 [Moles/Vol]26.4 mmol/OCdxnto37.0-31.0The [facility] Physician GroupComment on above:Performed By: #### SJOGRENS #### [facility] ,Creatinine [Mass/Vol]0.81 mg/dLNormal0.70-1.30[facility] Comment on above:Performed By: #### SJOGRENS #### [facility] ,GFR/1.73 sq M.predicted MDRD (S/P/Bld) [Vol rate/Area]mL/min/{1.73_m2}NormalThe [facility] Physician GroupComment on above:Performed By: #### SJOGRENS #### [facility] ,Globulin (S) [Mass/Vol]2.1 g/dLNormalThe [facility] Physician GroupComment on above:Performed By: #### SJOGRENS #### [facility] ,Glucose [Mass/Vol]121 mg/nKSqdh35-083Gtv [facility] Physician GroupComment on above:Result Comment: Random Glucose Reference Range is dependent on time and content of last meal. Glucose of more than 200 mg/dL in a nonstressed, ambulatory subject supports the diagnosis of Diabetes Mellitus. ADA recommended reference rangePerformed By: #### SJOGRENS #### [facility] ,Potassium [Moles/Vol]4.2 mmol/LNormal3.5-5.1[facility] Comment on above:Performed By: #### SJOGRENS #### [facility] ,Protein [Mass/Vol]6.0 g/dLLow6.4-8.9The [facility] Physician GroupComment on above:Performed By: #### SJOGRENS #### [facility] ,Sodium [Moles/Vol]139 mmol/BXdavkb286-557Ayc [facility] Physician GroupComment on above:Performed By: #### SJOGRENS #### [facility] ,Urea nitrogen [Mass/Vol]19 mg/dLNormal7-25The [facility] Physician GroupComment on above:Performed By: #### SJOGRENS #### [facility] ,Creatinine [Mass/volume] in Serum or PlasmaOrdered By: Romel Davis on 73-71-0734Dbtlywpsev [Mass/Vol]Creatinine [Mass/volume] in Serum or Plasma 0.70-1.30[facility] East HospitalDipstick and Microscopicon 01-14-2025 Appearance (U)ClearNormalClearThe [facility] Physician GroupComment on above: Order Comment: Name Collection Type:: Clean-Voided MidstreamPerformed By: #### SJOGRENS #### [facility] ,Bacteria,UrineNone SeenNormalNone SeenThe [facility] Physician GroupComment on above:Order Comment: Name Collection Type:: Clean-Voided MidstreamPerformed By: #### SJOGRENS #### [facility] ,Bilirubin,UrineNegativeNormalNegativeAdventhealth Winter Garden Physician GroupComment on above:Order Comment: Name Collection Type:: Clean-Voided MidstreamPerformed By: #### SJOGRENS #### [facility] ,Color (U)YellowNormalYellowAdventhealth Winter Garden Physician GroupComment on above:Order Comment: Name Collection Type:: Clean-Voided MidstreamPerformed By: #### SJOGRENS #### [facility] ,Glucose Ql (U)NormalNormalNormalThTeton Valley Hospital Physician GroupComment on above: Order Comment: Name Collection Type:: Clean-Voided MidstreamPerformed By: #### SJOGRENS #### [facility] ,Hyaline Casts,UrineNoneNormal0-8The [facility] Physician GroupComment on above: Order Comment: Name Collection Type:: Clean-Voided MidstreamPerformed By: #### SJOGRENS #### [facility] ,Ketones Ql (U)NegativeNormalNegativeAdventhealth Winter Garden Physician GroupComment on above:Order Comment: Name Collection Type:: Clean-Voided MidstreamPerformed By: #### SJOGRENS #### [facility] ,Leukocyte esterase Test strip Ql (U)NegativeNormalNegativeAdventhealth Winter Garden Physician GroupComment on above:Order Comment: Name Collection Type:: Clean- Voided MidstreamPerformed By: #### SJOGRENS #### [facility] ,Mucus,UrineRareNormalThe [facility] Physician GroupComment on above:Order Comment: Name Collection Type:: Clean-Voided MidstreamResult Comment: PERFORMED BY: [place] [address] [place] [address] PATHOLOGIST SHELLFISH CHECKER HECTOR MEJIA M.D.Performed By: #### SJOGRENS #### [facility] ,Nitrite,UrineNegativeNormalNegativeAdventhealth Winter Garden Physician GroupComment on above:Order Comment: Name Collection Type:: Clean-Voided MidstreamPerformed By: #### SJOGRENS #### [facility] ,Occult Blood,UrineNegativeNormalNegativeAdventhealth Winter Garden Physician GroupComment on above:Order Comment: Name Collection Type:: Clean-Voided MidstreamPerformed By: #### SJOGRENS #### [facility] ,pH (U)7.5 [pH]Normal5.0-9.0[facility] Physician GroupComment on above:Order Comment: Name Collection Type:: Clean-Voided MidstreamPerformed By: #### SJOGRENS #### [facility] ,Protein (U) [Mass/Vol]30 mg/dLHighNegativeAdventhealth Winter Garden Physician GroupComment on above:Order Comment: Name Collection Type:: Clean-Voided MidstreamPerformed By: #### SJOGRENS #### [facility] ,RBC,Mjmwb6-8Vbhuqv1-0Kem [facility] Physician GroupComment on above:Order Comment: Name Collection Type:: Clean-Voided MidstreamPerformed By: #### SJOGRENS #### [facility] ,Specificy [place],Urine1.174Cmigjx8.001-1.030[facility] Comment on above:Order Comment: Name Collection Type:: Clean-Voided Midstream Performed By: #### SJOGRENS #### [facility] ,Urobilinogen,UrineNormalNormalNormalThe [facility] Physician GroupComment on above:Order Comment: Name Collection Type:: Clean-Voided MidstreamPerformed By: #### SJOGRENS #### [facility] ,WBC,Scimx3-7Nsuwxu2-7Rgn [facility] Physician GroupComment on above:Order Comment: Name Collection Type:: Clean-Voided MidstreamPerformed By: #### SJOGRENS #### [facility] ,Eosinophils Auto (Bld) [#/Vol]Ordered By: Romel Davis on 01-14-2025 Eosinophils (Bld) [#/Vol]Automated eosinophil count0.0-0.45[facility] CenterEosinophils/100 WBC Auto (Bld)Ordered By: Romel Davis on 54-58-2221Boylqontmty/100 WBC (Bld)Automated eosinophil %.[facility] HospitalEpithelial cells.squamous [#/area] in Urine sediment by Automated countOrdered By: Romel Davis on 40-23-7114Veemrwzbwz cells.squamous Auto (Urine sed) [#/Area]Epithelial cells.squamous [#/area] in Urine sediment by Automated countOhio State East HospitalErythrocyte Sedimentation Rateon 98-03-0757DLL (Bld) [Velocity]6 mm/hNormal0-The [facility] Comment on above:Result Comment: PERFORMED BY: [facility] [address] [place] [address] PATHOLOGIST SHELLFISH CHECKER HECTOR MEJIA M.D.Performed By: #### SJOGRENS #### [facility] ,Erythrocyte distribution width Auto (RBC) [Ratio]Ordered By: Romel Davis on 43-73-5099Deddvjlvyqa distribution width (RBC) [Ratio]Erythrocyte distribution width [Ratio] by Automated wpykgUzph62.0-14.8[facility] Erythrocyte morphology finding [Identifier] in BloodOrdered By: Romel Davis on 91-03-8471OHC morphology finding Nom (Bld)RBC morphologyNormalOhio State East HospitalErythrocyte sedimentation rate by Photometric method Ordered By: Romel Davis on 14-21-8701MYZ Photometric method (Bld) [Velocity] Erythrocyte sedimentation rate by Photometric method0[facility] HospitalErythrocytes [#/area] in Urine sediment by Automated countOrdered By: Romel Davis on 25-66-5978LUM Auto (Urine sed) [#/Area]Erythrocytes [#/area] in Urine sediment by Automated count0-[facility] DaytonGlobulin Calc (S) [Mass/Vol]Ordered By: Romel Davis on 01-14-2025 Globulin (S) [Mass/Vol]Serum globulin measurement by calculation (mass/volume) [facility] HospitalGlucose [Mass/volume] in Serum or PlasmaOrdered By: Romel Davis on 98-38-4717Uackcun [Mass/Vol]Glucose [Mass/volume] in Serum or ZcehtqDxwk47-035HhvegnfzjOhio State East HospitalComment on above:ADA recommended reference rangeRandom Glucose Reference Range is dependent on time and content of last meal. Glucose of more than 200 mg/dL in a nonstressed, ambulatory subject supports the diagnosisof Diabetes Mellitus.Glucose [Mass/volume] in Urine by Test stripOrdered By: Romel Davis on 01-14-2025 Glucose Test strip (U) [Mass/Vol]Glucose [Mass/volume] in Urine by Test strip NormalOhio State East HospitalHematocrit Auto (Bld) [Volume fraction] Ordered By: Romel Dvais on 22-69-1040Tnkcuoprxb (Bld) [Volume fraction] Hematocrit [Volume Fraction] of Blood by Automated count38.8-50.0[facility] HospitalHemoglobin Test strip Ql (U)Ordered By: Romel Davis on 49-33-2953Tytsznavtc Ql (U)Hemoglobin [Presence] in Urine by Test stripNegative [facility] HospitalHemoglobin [Mass/volume] in BloodOrdered By: Romel Davis on 07-71-9996Glyxsshkto (Bld) [Mass/Vol]Hemoglobin [Mass/volume] in Blood13.0-17.0[facility] HospitalHyaline casts [#/area] in Urine sediment by Automated countOrdered By: Romel Davis on 98-29-1685Chuiexp casts Auto (Urine sed) [#/Area]Hyaline casts [#/area] in Urine sediment by Automated count0-8[facility] HospitalKetones Test strip Ql (U) Ordered By: Romel Davis on 37-52-7363Ajpnnyt Ql (U)Ketones [Presence] in Urine by Test stripNegKettering Health Main CampusLeukocyte esterase [Presence] in Urine by Test stripOrdered By: Romel Davis on 01-14-2025 Leukocyte esterase Test strip Ql (U)Leukocyte esterase [Presence] in Urine by Test stripNegKettering Health Main CampusLeukocytes [#/area] in Urine sediment by Automated countOrdered By: Romel Davis on 06-63-9647FFS Auto (Urine sed) [#/Area]Leukocytes [#/area] in Urine sediment by Automated count0-4 [facility] HospitalLeukocytes [#/volume] corrected for nucleated erythrocytes in Blood by Automated counOrdered By: Romel Davis on 01-14-2025 WBC corrected for nucl RBC Auto (Bld) [#/Vol]Leukocytes [#/volume] corrected for nucleated erythrocytes in Blood by Automated coun4.1-10.5FKindred Hospital DaytonLymphocytes Auto (Bld) [#/Vol]Ordered By: Romel Davis on 09-39-2040Jmdlypwpirt (Bld) [#/Vol]Lymphocytes [#/volume] in Blood by Automated countLow1.00-4.8[facility] HospitalLymphocytes/100 WBC Auto (Bld) Ordered By: Romel Davis on 23-85-9027Gbvnxlelsvd/100 WBC (Bld)Lymphocytes/100 leukocytes in Blood by Automated count.[facility] HospitalMCH Auto (RBC) [Entitic mass]Ordered By: Romel Davis on 33-41-7479FIU (RBC) [Entitic mass]MCH [Entitic mass] by Automated count27.5-35.2FKindred Hospital DaytonMCHC Auto (RBC) [Mass/Vol]Ordered By: Romel Davis on 01-14-2025 MCHC (RBC) [Mass/Vol]MCHC [Mass/volume] by Automated count32.5-35.6FKindred Hospital DaytonMCV Auto (RBC) [Entitic vol]Ordered By: Romel Davis on 87-27-8024NZT (RBC) [Entitic vol]MCV [Entitic volume] by Automated count83.5-101 [facility] HospitalMonocytes Auto (Bld) [#/Vol]Ordered By: Romel Davis on 11-42-1949Sobsqnusw (Bld) [#/Vol]Automated blood monocyte count 0.0-0.8[facility] HospitalMonocytes/100 WBC Auto (Bld)Ordered By: Romel Davis on 59-48-4680Xccjrbjge/100 WBC (Bld)Automated monocyte %. [facility] HospitalMucus [Presence] in Urine by AutomatedOrdered By: Romel Davis on 90-40-2497Moezi Auto Ql (U)Mucus [Presence] in Urine by AutomatedOhio State East HospitalNeutrophils Auto (Bld) [#/Vol]Ordered By: Romel Davis on 26-56-0051Iggjkfvkdyz (Bld) [#/Vol]Neutrophils [#/volume] in Blood by Automated count1.8-7.7FKindred Hospital Dayton Neutrophils/100 WBC Auto (Bld)Ordered By: Romel Davis on 01-14-2025 Neutrophils/100 WBC (Bld)Automated neutrophil %.[facility] HospitalNitrite Test strip Ql (U)Ordered By: Romel Davis on 04-74-7407Mbykrrd Ql (U)Nitrite [Presence] in Urine by Test stripNegativeOhio State East HospitalNo Panel InformationOrdered By: Romel Davis on 01-14-2025 Estimated GFR (CKD-EPI)> 60.0 mL/MinOhio State East HospitalPharmacy Creatinine Clearance (ChemN/[facility] HospitalNucleated erythrocytes [Presence] in Blood by Automated countOrdered By: Romel Davis on 39-14-8940Hznauyarh RBC Auto Ql (Bld)Nucleated erythrocytes [Presence] in Blood by Automated count0-0.5FKindred Hospital DaytonPlatelet adequacy [Presence] in Blood by Light microscopyOrdered By: Romel Davis on 01-14-2025 Platelets LM Ql (Bld)Platelet adequacy [Presence] in Blood by Light microscopy NormalOhio State East HospitalPlatelet mean volume Auto (Bld) [Entitic vol]Ordered By: Romel Davis on 11-24-0180Htcsdksg mean volume (Bld) [Entitic vol]Platelet mean volume [Entitic volume] in Blood by Automated count6.6-10.1 [facility] HospitalPlatelet morphology finding [Identifier] in BloodOrdered By: Romel Davis on 72-22-8549Smvstshc morphology finding Nom (Bld)Platelet morphology finding [Identifier] in BloodNormalOhio State East HospitalPlatelets Auto (Bld) [#/Vol]Ordered By: Romel Davis on 78-35-4483Zpycnaluh (Bld) [#/Vol]Platelets [#/volume] in Blood by Automated atshg461-267RzfbharnvOhio State East HospitalPotassium [Moles/volume] in Serum or PlasmaOrdered By: Romel Davis on 41-73-2886Pzdhljszv [Moles/Vol]Potassium [Moles/volume] in Serum or Plasma3.5-5.1FKindred Hospital DaytonProtein Test strip (U) [Mass/Vol]Ordered By: Romel Davis on 61-82-4880Zepoyuq (U) [Mass/Vol]Protein [Mass/volume] in Urine by Test stripHighNegativeOhio State East HospitalProtein [Mass/volume] in Serum or PlasmaOrdered By: Romel Davis on 44-90-9337Uttwwvm [Mass/Vol]Protein [Mass/volume] in Serum or PlasmaLow6.4-8.9[facility] HospitalRBC Auto (Bld) [#/Vol]Ordered By: Romel Davis on 61-18-5499TTN (Bld) [#/Vol]Erythrocytes [#/volume] in Blood by Automated count3.90-5.60[facility] Hospitalcan and CBCon 41-64-8752Ouzxphqta (Bld) [#/Vol]0.0 10*3/uLNormal0.0-0.2The [facility] Physician GroupComment on above:Performed By: #### SJOGRENS #### [facility] ,Basophils/100 WBC (Bld)0.5 %Normal.The [facility] Physician GroupComment on above:Performed By: #### SJOGRENS #### [facility] ,Eosinophils (Bld) [#/Vol]0.1 10*3/uLNormal0.0-0.45[facility] Comment on above:Performed By: #### SJOGRENS #### [facility] ,Eosinophils/100 WBC (Bld)1.2 %Normal.The [facility] Physician GroupComment on above:Performed By: #### SJOGRENS #### [facility] ,Erythrocyte distribution width (RBC) [Ratio]15.0 %High12.0-14.8The [facility] Physician GroupComment on above:Performed By: #### SJOGRENS #### [facility] ,Hematocrit (Bld) [Volume fraction]44.3 %Bqhmib39.8-50.0The [facility] Physician GroupComment on above:Performed By: #### SJOGRENS #### [facility] ,Hemoglobin (Bld) [Mass/Vol]15.3 g/tRZbopob92.0-17.0The [facility] Physician GroupComment on above:Performed By: #### SJOGRENS #### [facility] ,Lymphocytes (Bld) [#/Vol]0.8 10*3/uLLow1.00-4.8[facility] Comment on above:Performed By: #### SJOGRENS #### [facility] ,Lymphocytes/100 WBC (Bld)17.5 %Normal.The [facility] Physician GroupComment on above:Performed By: #### SJOGRENS #### [facility] ,MCH (RBC) [Entitic mass]31.1 zeNazzte28.5-35.2[facility] Comment on above:Performed By: #### SJOGRENS #### [facility] ,MCV (RBC) [Entitic vol]90.0 vLPvldpm76.5-101The [facility] Comment on above:Performed By: #### SJOGRENS #### [facility] ,Mean Corpuscular HGB Conc34.5 g/qXBavxkc05.5-35.6[facility] Comment on above:Performed By: #### SJOGRENS #### [facility] ,Monocytes (Bld) [#/Vol]0.4 10*3/uLNormal0.0-0.8[facility] Comment on above:Performed By: #### SJOGRENS #### [facility] ,Monocytes/100 WBC (Bld)8.1 %Normal.The [facility] Physician GroupComment on above:Performed By: #### SJOGRENS #### [facility] ,Neutrophils (Bld) [#/Vol]3.2 10*3/uLNormal1.8-7.7[facility] Comment on above:Performed By: #### SJOGRENS #### [facility] ,Neutrophils/100 WBC (Bld)72.7 %Normal.The [facility] Physician GroupComment on above:Performed By: #### SJOGRENS #### [facility] ,NRBC%0.1 /100{WBC}Normal0-0.5The [facility] Physician GroupComment on above: Performed By: #### SJOGRENS #### [facility] ,Platelet EstimateNormalNormalShorePoint Health Punta Gorda Physician GroupComment on above:Performed By: #### SJOGRENS #### [facility] ,Platelet mean volume (Bld) [Entitic vol]8.0 fLNormal6.6-10.1The [facility] Physician GroupComment on above:Performed By: #### SJOGRENS #### [facility] ,Platelet MorphologyNormalNormalShorePoint Health Punta Gorda Physician GroupComment on above:Performed By: #### SJOGRENS #### [facility] ,Platelets (Bld) [#/Vol]177 10*3/vCTxkhrl271-293Hvr [facility] Comment on above:Performed By: #### SJOGRENS #### [facility] ,RBC (Bld) [#/Vol]4.92 10*6/uLNormal3.90-5.60[facility] Comment on above:Performed By: #### SJOGRENS #### [facility] ,RBC morphology finding Nom (Bld)NormalNormalShorePoint Health Punta Gorda Physician Group Comment on above:Performed By: #### SJOGRENS #### [facility] ,WBC (Bld) [#/Vol]4.4 10*3/uLNormal4.1-10.5The [facility] Physician GroupComment on above:Performed By: #### SJOGRENS #### [facility] ,Serum or plasma albumin/globulin mass ratioOrdered By: Romel Davis on 04-75-6599Stdwide/Globulin [Mass ratio]Serum or plasma albumin/globulin mass ratioOhioHealth Grady Memorial Hospitalerum or plasma anion gap determination Ordered By: Romel Davis on 77-86-2055Umcrg gap [Moles/Vol]Serum or plasma anion gap determination6.0-15.0[facility] Memorial Hospitalerum or plasma complement C3 measurement (mass/volume)Ordered By: Romel Davis on 01-14-2025 Complement C3 [Mass/Vol]Serum or plasma complement C3 measurement (mass/volume) 82-167[facility] HospitalComment on above:Performed at: [facility] [place] [id number] Director: Richy Ardon PhD, Phone: [phone] or plasma complement C4 measurement (mass/volume)Ordered By: Romel Davis on 30-26-4389Nqbdjyqgyj C4 [Mass/Vol] Serum or plasma complement C4 measurement (mass/volume)12-38[facility] Memorial Hospitalodium [Moles/volume] in Serum or PlasmaOrdered By: Romel Davis on 02-96-2626Hndtrt [Moles/Vol]Sodium [Moles/volume] in Serum or Xabxfx169-935 [facility] Hospitalpecific gravity Test strip (U) [Rel density] Ordered By: Romel Davis on 61-02-8891Xvwywtkr gravity (U) [Rel density] Specific gravity of Urine by Test strip1.001-1.030[facility] HospitalTotal hemolytic complement CH50 assayOrdered By: Romel Davis on 94-65-9243Gnszz Complement (CH50)57 U/mL>41[facility] Comment on above:Age Male Female 1 - 30 days Not Estab. Not Estab. 31 days - 6 months >32 >20 7 months - 17 years >39 >39 >17 years >41 >41 NOTE: The adult ( >17 years ) reference intervalrange is used to flag abnormals on this report. If the patient is 17 years old or younger, use the table above to determine out of range values.Performed at: [address] [id number] Director: Richy Ardon PhD, Phone: [phone] nitrogen [Mass/volume] in Serum or PlasmaOrdered By: Romel Davis on 47-18-4004Wute nitrogen [Mass/Vol]Urea nitrogen [Mass/volume] in Serum or Plasma 06-14[facility] HospitalUrobilinogen Test strip (U) [Mass/Vol] Ordered By: Romel Davis on 70-42-7987Mxtemjsxahxl (U) [Mass/Vol]Urobilinogen [Mass/volume] in Urine by Test stripNormOhioHealth Riverside Methodist HospitalWBC Auto (Bld) [#/Vol]Ordered By: Romel Davis on 45-61-8340YDA (Bld) [#/Vol] Leukocytes [#/volume] in Blood by Automated count4.1-10.5FKindred Hospital DaytonpH Test strip (U)Ordered By: Romel Davis on 42-76-7314zL (U)pH of Urine by Test strip5.0-9.0[facility] HospitalCT head/brain wo conon 18-69-6842CD head/brain wo [facility] [place] [address] CT Scan Report Signed Patient: Valentin Torre MR#: [id number] [birth year] : 1955 Acct:[id number] Age/Sex: 69 / M ADM Date: 01/12/25 Loc: ER Room: Type: [facility] ER Attending Dr: Copies to: Matthew [...] ACUTE INTRACRANIAL ABNORMALITY. CHRONIC SMALL VESSEL CHANGES RQUR-OL-CKGCKSZM PARANASAL SINUS DISEASE Impression dictated by: Alo Mayer M.D.01/12/2025 2:28 PM Dictation Location: [place] [address] Transcribed By: MARV 01/12/25 1428 Dictated By: Alo Mayer MD 01/12/25 1426 Signed By: 01/12/25 1428ShorePoint Health Pun[facility] Gorda Physician GroupCT lumbar spine wo conon 15-61-0870FL lumbar spine wo [facility] [place] [address] [place] [address] CT Scan Report Signed Patient: Valentin Torre MR#: [id number] [birth year] : 1955 Acct:[id number] Age/Sex: 69 / M ADM Date: 01/12/25 Loc: ER Room: Type: [facility] ER Attending Dr: Copies to: Matthew [...] MRI 01/10/2024 FINDINGS: L5-S1: Mild disc disease. Myfx-aa-wnfbgtqy neural from narrowing. Advanced facet arthropathy. Laminectomy. L4-5 Postsurgical changes L4-5 status post the decompressive laminectomy and posterior fusion and discectomy. Stable 5 mm of anterolisthesis. Zirl-gv-gzsnlvod foraminal narrowing at this level. L3-4 Moderate [...] Alo Mayer M.D.01/12/2025 2:53 PM Dictation Location: [place] [address] Transcribed By: [facility] 01/12/25 1453 Dictated By: Alo Mayer MD 01/12/25 1438 Signed By: 01/12/[address] [place] [address] Physician GroupX-ray reportOrdered By: Alo Mayer on 40-74-1759Vupyn reportMETROHEALTH MA[facility] [place] [address] [place] [address] XRay Report Signed Patient: Valentin Torre MR#: [id number] : 1955 Acct:[id number] Age/Sex: 69 / M ADM Date: 5 Loc: ER Room: Type: [facility] ER Attending Dr: Copies to: Matthew [...] Alo Mayer M.D.01/12/2025 3:08 PM Dictation Location: [facility]- Transcribed By: [facility] 01/12/25 1508 Dictated By: Alo Mayer MD 01/12/25 1507 Signed By: 01/12/25 1508 [facility] Work Phone: XR knee RT 2Von 13-53-8441QE knee RT 2VMETROHEALTH MAIN CAMPUS MEDICAL C[facility] [place] [address] [place] [address] XRay Report Signed Patient: Valentin Torre MR#: [id number] [birth year] : 1955 Acct:[id number] Age/Sex: 69 / M ADM Date: 01/12/25 Loc: ER Room: Type: [facility] ER Attending Dr: Copies to: Matthew [...] Alo Mayer M.D.01/12/2025 3:08 PM Dictation Location: [place] [address] Transcribed By: [facility] 01/12/25 1508 Dictated By: Alo Mayer MD 01/12/25 1507 Signed By: 01/12/25 1508[facility] Physician GroupAlanine aminotransferase [Enzymatic activity/volume] in Serum or PlasmaOrdered By: Sascha Sutton on 32-06-9898EKN [Catalytic activity/Vol]Alanine aminotransferase [Enzymatic activity/volume] in Serum or Plasma-[address] [place], [place] [address]Albumin [Mass/volume] in Serum or Plasma by Bromocresol green (BCG) dye binding metho Ordered By: Sascha Sutton on 14-81-4929Shngxgh BCG dye [Mass/Vol]Albumin [Mass/volume] in Serum or Plasma by Bromocresol green (BCG) dye binding metho 3.5-5.7FKindred Hospital DaytonAlkaline phosphatase [Enzymatic activity/volume] in Serum or PlasmaOrdered By: Sascha Sutton on 64-43-1336WKD [Catalytic activity/Vol]Alkaline phosphatase [Enzymatic activity/volume] in Serum or Fpanwj78-131FnxbykbgsOhio State East HospitalAspartate aminotransferase [Enzymatic activity/volume] in Serum or PlasmaOrdered By: Sascha Sutton 08-42-0505KHB [Catalytic activity/Vol]Aspartate aminotransferase [Enzymatic activity/volume] in Serum or Jezrxf44-67MjoapyczyOhio State East Hospital Bilirubin.total [Mass/volume] in Serum or PlasmaOrdered By: Sascha Sutton 35-57-4189Gtyylffoo [Mass/Vol]Bilirubin.total [Mass/volume] in Serum or Plasma 0.3-1.0[facility] East HospitalCalcium [Mass/volume] in Serum or Plasma Ordered By: Sascha Sutton 55-11-7236Clpgiht [Mass/Vol]Calcium [Mass/volume] in Serum or Plasma8.6-10.3FKindred Hospital DaytonCarbon dioxide, total [Moles/volume] in Serum or PlasmaOrdered By: Sascha Sutton 77-94-6415UF6 [Moles/Vol]Carbon dioxide, total [Moles/volume] in Serum or Kagpzy63.0-31.0 [facility] HospitalChloride [Moles/volume] in Serum or Plasma Ordered By: Sascha Sutton 94-84-3450Ilegdply [Moles/Vol]Chloride [Moles/volume] in Serum or CrntbtVmbg26-993UadbfrcxeOhio State East Hospital Cholesterol [Mass/volume] in Serum or PlasmaOrdered By: Sascha Sutton 72-87-8552Mjtnlsmtxuy [Mass/Vol]Cholesterol [Mass/volume] in Serum or PlasmaLow 140-200Ohio State East HospitalComment on above:Chol less than 200 mg/dl low riskChol 201-239 mg/dl borderline riskChol 240 mg/dl and greater high riskCholesterol in HDL [Mass/volume] in Serum or PlasmaOrdered By: Sascha Sutton on 10-80-8685Pilewnpykkb in HDL [Mass/Vol]Serum or plasma high density lipoprotein (HDL) cholesterol uzeneysdobm26-40RgkrylpuxOhio State East Hospital Comment on above:HDL CHOL ATP-III CLASSIFICATION Cardiovascular RiskHDL > or equal to 60 mg/dL LOWHDL < 40 mg/dL HIGHCholesterol in LDL Calc [Mass/Vol] Ordered By: Sascha Sutton on 35-77-7684Ryguyrvauvr in LDL [Mass/Vol]Cholesterol in LDL [Mass/volume] in Serum or Plasma by calculationOhio State East HospitalComment on above:LDL ATP III CLASSIFICATIONLDL less than 100 mg/dL OptimalLDL 100-129 mg/dL Near or above jrrotnlFDP252-508 mg/dL Borderline highLDL 160-189 mg/dL HighLDL greater than 189 mg/dL Very highCholesterol in VLDL Calc [Mass/Vol]Ordered By: Sascha Sutton on 79-90-3266Zzrmbmkezff in VLDL [Mass/Vol]Cholesterol in VLDL [Mass/volume] in Serum or Plasma by calculation [facility] HospitalComprehensive Metabolic Panelon 12-07-2024 Albumin [Mass/Vol]4.1 g/dLNormal3.5-5.7The [facility] Physician GroupComment on above:Performed By: #### CRP #### [facility] [address] [place] [address] USAAlbumin/Globulin [Mass ratio]1.8 {ratio}NormalThe [facility] Physician GroupComment on above:Performed By: #### CRP #### [facility] [address] [place] [address] USAALP [Catalytic activity/Vol]82 U/MOcdfjf68-996Hgi [facility] Physician GroupComment on above:Performed By: #### CRP #### [facility] [address] [place] [address] USAALT [Catalytic activity/Vol]28 U/LNormal7-52The [facility] Physician GroupComment on above:Performed By: #### CRP #### [facility] [address] [place] [address] USAAnion gap [Moles/Vol]10.2 mmol/LNormal6.0-15.0The [facility] Physician GroupComment on above:Performed By: #### CRP #### [facility] [address] [place] [address] USAAST [Catalytic activity/Vol]17 U/BXwnzsy02-78Ahq [facility] Physician GroupComment on above:Performed By: #### CRP #### [facility] [address] [place] [address] USABilirubin [Mass/Vol]0.6 mg/dLNormal0.3-1.0The [facility] Physician GroupComment on above:Performed By: #### CRP #### [facility] [address] [place] [address] USACalcium [Mass/Vol]8.9 mg/dLNormal8.6-10.3The [facility] Physician GroupComment on above:Performed By: #### CRP #### [facility] [address] [place] [address] USAChloride [Moles/Vol]110 mmol/NLatj61-928Ksb [facility] Physician GroupComment on above:Performed By: #### CRP #### [facility] [address] [place] [address] USACO2 [Moles/Vol]22.8 mmol/RZvcetq46.0-31.0The [facility] Physician GroupComment on above:Performed By: #### CRP #### [facility] [address] [place] [address] USACreatinine [Mass/Vol]0.85 mg/dLNormal0.70-1.30The [facility] Physician GroupComment on above:Performed By: #### CRP #### [facility] [address] [place] [address] USAGFR/1.73 sq M.predicted MDRD (S/P/Bld) [Vol rate/Area] mL/min/{1.73_m2}NormalThe [facility] Physician GroupComment on above:Performed By: #### CRP #### [facility] [address] [place] [address] USAGlobulin (S) [Mass/Vol]2.3 g/dLNormalThe [facility] Physician GroupComment on above:Performed By: #### CRP #### [facility] [address] [place] [address] USAGlucose [Mass/Vol]97 mg/lVVtaycf51-527Dry [facility] Physician GroupComment on above:Result Comment: Random Glucose Reference Range is dependent on time and content of last meal. Glucose of more than 200 mg/dL in a nonstressed, ambulatory subject supports the diagnosis of Diabetes Mellitus. ADA recommended reference rangePerformed By: #### CRP #### [facility] [address] [place] [address] USAPotassium [Moles/Vol]4.0 mmol/LNormal3.5-5.1The [facility] Physician GroupComment on above:Performed By: #### CRP #### [place] [address] USAProtein [Mass/Vol]6.4 g/dLNormal6.4-8.9The [facility] Physician GroupComment on above:Performed By: #### CRP #### [facility] [address] [place] [address] USASodium [Moles/Vol]139 mmol/WNhadrv009-610Xie [facility] Physician GroupComment on above:Performed By: #### CRP #### [facility] [address] [place] [address] USAUrea nitrogen [Mass/Vol]29 mg/dLHigh7-25The [facility] Physician GroupComment on above:Performed By: #### CRP #### [place] [address] USACreatinine [Mass/volume] in Serum or PlasmaOrdered By: Sascha Sutton on 93-89-0718Dsajusqnyc [Mass/Vol]Creatinine [Mass/volume] in Serum or Plasma0.70-1.30[facility] State East HospitalGlobulin Calc (S) [Mass/Vol]Ordered By: Sascha Sutton on 19-19-4795Wdyfxzci (S) [Mass/Vol]Serum globulin measurement by calculation (mass/volume)[facility] HospitalGlucose [Mass/volume] in Serum or PlasmaOrdered By: Sascha Sutton on 73-25-9854Dniavda [Mass/Vol]Glucose [Mass/volume] in Serum or Qmmrqv83-952 [facility] HospitalComment on above:ADA recommended reference rangeRandom Glucose Reference Range is dependent on time and content of last meal. Glucose of more than 200 mg/dL in a nonstressed, ambulatory subject supports the diagnosisof Diabetes Mellitus.Lipid Panelon 57-75-3707Hsylolzbazc [Mass/Vol]125 mg/iAOzy974-179Yqi [facility] Physician GroupComment on above: Result Comment: Chol less than 200 mg/dl low risk Chol 201-239 mg/dl borderline risk Chol 240 mg/dl and greater high riskPerformed By: #### CRP #### [facility] [address] [place] [address] USACholesterol in HDL [Mass/Vol]53 mg/qMTmljgt25-93Gki [facility] CenterComment on above:Result Comment: HDL CHOL ATP-III CLASSIFICATION Cardiovascular Risk HDL > or equal to 60 mg/dL LOW HDL < 40 mg/dL HIGHPerformed By: #### CRP #### [facility] [address] [place] [address] USACholesterol.total/Cholesterol in HDL [Mass ratio]2.4 {ratio}Normal<5.0The [facility]adin HealthcareComment on above:Result Comment: PERFORMED BY: [address] [address] PATHOLOGIST SHELLFISH CHECKER HECTOR MEJIA M.D.Performed By: #### CRP #### [facility] [address] [place] [address] USALDL Cholesterol,Vxokvvxquf21 mg/dLNormal0-100The [facility] CenterComment on above:Result Comment: LDL ATP III CLASSIFICATION LDL less than 100 mg/dL Optimal LDL 100-129 mg/dL Near or above optimal LDL 130-159 mg/dL Borderline high LDL 160-189 mg/dL High LDL greater than 189 mg/dL Very highPerformed By: #### CRP #### [facility] [address] [place] [address] USATriglyceride w/Bvvhok45 mg/dLNormal0-149The [facility] Physician GroupComment on above:Result Comment: TRIG ATP III CLASSIFICATION TRIG less than 150 mg/dL Normal TRIG 150-199 mg/dL Borderline high TRIG 200-500 mg/dL High TRIG greater than 500 mg/dL Very high Standard traceable to the Center for Disease Conrtrol and Prevention (CDC) test method.Performed By: #### CRP #### [facility] [address] [place] [id number] USAVLDL DLJOXVKLOXO48 mg/dLNormalThe [facility] Physician GroupComment on above:Performed By: #### CRP #### [facility] [address] [place] [address] USANo Panel InformationOrdered By: Sascha Sutton on 69-41-1811Nctbddqvx GFR (CKD-EPI)> 60.0 mL/MinOhio State East Hospital Pharmacy Creatinine Clearance (ChemN/[facility] HospitalPSA Screen (Yearly Only)on 31-18-8826GSG Screen (Yearly Only)2.510 ng/mLNormal 0.000-4.000The [facility] Physician GroupComment on above:Order Comment: Is patient <50 yrs? Medicare does not pay <50.: Y What is the date of the lastPSA Screen?: 04/08/23 Is Medicare the insurance?: Y Did you verify eligibility (Dx Time) check TestViewGp: YES TO ALLResult Comment: Serial tumor marker results determined by assays using different manufacturers or methods may not be comparable. [facility] oncology research rn and method: LISSET UNICEL DXI, CHEMILUMINESCENT IMMUNOASSAY. PERFORMED BY: [place] [id number] PATHOLOGIST SHELLFISH CHECKER HECTOR MEJIA M.D.Performed By: #### CRP #### [facility] [address] [place] [address] USAPotassium [Moles/volume] in Serum or PlasmaOrdered By: Sascha Sutton on 12-41-7474Qyitaknmh [Moles/Vol]Potassium [Moles/volume] in Serum or Plasma3.5-5.1FKindred Hospital DaytonProstate specific Ag [Mass/volume] in Serum or PlasmaOrdered By: Sascha Sutton on 44-07-4991Gynlptgq specific Ag [Mass/Vol]Prostate specific Ag [Mass/volume] in Serum or Plasma 0.000-4.000Ohio [facility] HospitalComment on above:Serial tumor marker results determined by assays using different manufacturers or methods may not be comparable.[facility] oncology research rn and method:Sandman D&R DXI, CHEMILUMINESCENT IMMUNOASSAY.Protein [Mass/volume] in Serum or PlasmaOrdered By: Sascha Sutton on 72-61-0436Lmqzqhp [Mass/Vol]Protein [Mass/volume] in Serum or Plasma6.4-8.9[facility] Memorial Hospitalerum or plasma albumin/globulin mass ratioOrdered By: Sascha Sutton 38-18-3396Yuvguak/Globulin [Mass ratio] Serum or plasma albumin/globulin mass ratioOhio State East Hospital Serum or plasma anion gap determinationOrdered By: Sascha Sutton 12-07-2024 Anion gap [Moles/Vol]Serum or plasma anion gap determination6.0-15.0[facility] Memorial Hospitalerum or plasma total cholesterol/high density lipoprotein (HDL) cholesterol mass ratOrdered By: Sascha Sutton 12-07-2024 Cholesterol.total/Cholesterol in HDL [Mass ratio]Serum or plasma total cholesterol/high density lipoprotein (HDL) cholesterol mass rat<5.0[facility] Hospitalodium [Moles/volume] in Serum or PlasmaOrdered By: Sascha Sutton 79-94-8873Lugqct [Moles/Vol]Sodium [Moles/volume] in Serum or Wqwbbt200-346DbuqicgksOhio State East HospitalTriglyceride [Mass/volume] in Serum or PlasmaOrdered By: Sascha Sutton 85-76-5566Qtlgiwubllje [Mass/Vol] Triglyceride [Mass/volume] in Serum or Plasma0-149[facility] HospitalComment on above:TRIG ATP III CLASSIFICATIONTRIG less than 150 mg/dL NormalTRIG 150-199 mg/dL Borderline highTRIG 200-500 mg/dL High TRIG greater than 500 mg/dL Very highStandard traceable to the Center for Disease Conrtrol and Prevention (CDC) test method.Urea nitrogen [Mass/volume] in Serum or Plasma Ordered By: Sascha Sutton 27-87-7830Parr nitrogen [Mass/Vol]Urea nitrogen [Mass/volume] in Serum or PlasmaHighland Hospital06-14Ohio [facility] East HospitalMR hip RT wo conon 11-09-2098OB hip RT wo [facility] [place] [address] [place] [address] MRI Report Signed Patient: Valentin Torre MR#: [id number] 31 : 1955 Acct:[id number] Age/Sex: 69 / M ADM Date: 11/05/24 Loc: [facility] Room: Type: [facility] CLI Attending Dr: Jaime Murcia II, [...] Patel Jr., D.O.11/05/2024 12:53 PM Dictation Location: [place] [address] Transcribed By: [facility] 11/05/24 1253 Dictated By: Marcial Patel Jr, DO 11/05/24 1248 Signed By: 11/05/24 1253[facility] Physician GroupAlanine aminotransferase [Enzymatic activity/volume] in Serum or PlasmaOrdered By: Romel Davis on 32-65-3552VJL [Catalytic activity/Vol]Alanine aminotransferase [Enzymatic activity/volume] in Serum or PlasmaOhio State East HospitalAlbumin [Mass/volume] in Serum or Plasma by Bromocresol green (BCG) dye binding metho Ordered By: Romel Davis on 79-79-7072Tawgnqu BCG dye [Mass/Vol]Albumin [Mass/volume] in Serum or Plasma by Bromocresol green (BCG) dye binding metho 3.5-5.7FKindred Hospital DaytonAlkaline phosphatase [Enzymatic activity/volume] in Serum or PlasmaOrdered By: Romel Davis on 12-64-5397IKB [Catalytic activity/Vol]Alkaline phosphatase [Enzymatic activity/volume] in Serum or Azvmgw54-089CwuhgqrubOhio State East HospitalAppearance of UrineOrdered By: Romel Davis on 87-97-1349Cmttlnbywr (U)Urine appearanceCleProtestant Deaconess HospitalAspartate aminotransferase [Enzymatic activity/volume] in Serum or PlasmaOrdered By: Romel Davis on 62-97-6692TTW [Catalytic activity/Vol]Aspartate aminotransferase [Enzymatic activity/volume] in Serum or Aumhbn53-35VxgkatbpxOhio State East HospitalBacteria [Presence] in Urine by AutomatedOrdered By: Romel Davis on 54-74-8742Pbievdrn Auto Ql (U)Bacteria [Presence] in Urine by AutomatedNone SeenOhio State East Hospital Basophils Auto (Bld) [#/Vol]Ordered By: Romel Davis on 00-93-5066Tmiuhedlk (Bld) [#/Vol]Automated basophil count0.0-0.2FKindred Hospital Dayton Basophils/100 WBC Auto (Bld)Ordered By: Romel Davis on 10-10-2024 Basophils/100 WBC (Bld)Automated basophil %.[facility] Bilirubin Test strip Ql (U)Ordered By: Romel Davis on 84-68-0598Xdtnvapvg Ql (U)Bilirubin.total [Presence] in Urine by Test stripNegativeOhio State East HospitalBilirubin.total [Mass/volume] in Serum or PlasmaOrdered By: Romel Davis on 47-86-4733Kknqhcmrp [Mass/Vol]Bilirubin.total [Mass/volume] in Serum or Plasma0.3-1.0[facility] HospitalCalcium [Mass/volume] in Serum or PlasmaOrdered By: Romel Davis on 98-92-9818Zdvztzj [Mass/Vol] Calcium [Mass/volume] in Serum or Plasma8.6-10.3FKindred Hospital DaytonCarbon dioxide, total [Moles/volume] in Serum or PlasmaOrdered By: Romel Ryan on 94-68-5058UL2 [Moles/Vol]Carbon dioxide, total [Moles/volume] in Serum or Jcucfg92.0-31.0[facility] HospitalChloride [Moles/volume] in Serum or PlasmaOrdered By: Romel Davis on 04-58-8923Qbtdqifw [Moles/Vol] Chloride [Moles/volume] in Serum or Hamobt47-762IhwaumjjsOhio State East HospitalColor Auto (U)Ordered By: Romel Davis on 55-36-4517Auwok (U)Color of Urine by AutoYelGalion HospitalComplement C3on 10-10-2024 Complement C3130 mg/pCWceqbu29-027Eng [facility] Physician GroupComment on above: Result Comment: Performed at: [facility] [place] [id number] [employer] Counter Clerk: Richy Ardon PhD, Phone: [phone] By: #### ESR #### [facility] [address] [place] [address] USAComplement C4on 31-90-7053Aoylmmlpbn C413 mg/fNQpltvl73-06 The [facility] Physician GroupComment on above:Result Comment: PERFORMED BY: [place] [address] PATHOLOGIST SHELLFISH CHECKER HECTOR MEJIA M.D.Performed By: #### ESR #### [facility] [address] [place] [address] USAComplement Total (CH50)on 26-16-9253Qlqknepitn Total (CH50)59Normal>41The [facility] Physician GroupComment on above:Result Comment: Age Male Female 1 - 30 [...] out of range values. Performed at: - [facility] [id number] [employer] Counter Clerk: Richy Ardon PhD, Phone: [phone] PERFORMED BY: [place] [address] PATHOLOGIST SHELLFISH CHECKER HECTOR MEJIA M.D.Performed By: #### ESR #### [place] [address] USAComplete Blood Count Auto Diffon 92-06-3526Guzatcuif (Bld) [#/Vol]0.1 10*3/uLNormal0.0-0.2The [facility] Physician GroupComment on above: Performed By: #### ESR #### [place] [address] USABasophils/100 WBC (Bld)0.9 %Normal.The [facility] Physician GroupComment on above:Performed By: #### ESR #### [place] [address] USAEosinophils (Bld) [#/Vol]0.1 10*3/uLNormal0.0-0.45The [facility] Physician GroupComment on above:Performed By: #### ESR #### [place] [address] USAEosinophils/100 WBC (Bld)1.5 %Normal.The [facility] Physician GroupComment on above:Performed By: #### ESR #### [place] [address] USAErythrocyte distribution width (RBC) [Ratio]14.5 %Normal 12.0-14.8The [facility] Physician GroupComment on above:Performed By: #### ESR #### [place] [address] USAHematocrit (Bld) [Volume fraction]44.8 %Picvml30.8-50.0The [facility] Physician GroupComment on above:Performed By: #### ESR #### [facility] [address] [place] [address] USAHemoglobin (Bld) [Mass/Vol]15.4 g/vHTfepvx86.0-17.0The [facility] Physician GroupComment on above:Performed By: #### ESR #### [facility] [address] [place] [address] USALymphocytes (Bld) [#/Vol]0.9 10*3/uLLow1.00-4.8The [facility] Physician GroupComment on above:Performed By: #### ESR #### [facility] [address] [place] [address] USALymphocytes/100 WBC (Bld)12.7 %Normal.The [facility] Physician GroupComment on above:Performed By: #### ESR #### [facility] [address] [place] [address] USAMCH (RBC) [Entitic mass]31.2 nvQgglac32.5-35.2The [facility] Physician GroupComment on above:Performed By: #### ESR #### [place] [address] USAMCV (RBC) [Entitic vol]90.6 nBJadlsp83.5-101The [facility] Physician GroupComment on above:Performed By: #### ESR #### [facility] [address] [place] [address] USAMean Corpuscular HGB Conc34.4 g/pCGlnhxx63.5-35.6The [facility] Physician GroupComment on above:Performed By: #### ESR #### [facility] [address] [place] [address] USAMonocytes (Bld) [#/Vol]0.9 10*3/uLHigh0.0-0.8The [facility] Physician GroupComment on above:Performed By: #### ESR #### [facility] [address] [place] [address] USAMonocytes/100 WBC (Bld)12.1 %Normal.The [facility] Physician GroupComment on above:Performed By: #### ESR #### [facility] [address] [place] [address] USANeutrophils (Bld) [#/Vol]5.2 10*3/uLNormal1.8-7.7The [facility] Physician GroupComment on above:Performed By: #### ESR #### [facility] [address] [place] [id number] USANeutrophils/100 WBC (Bld)72.8 %Normal.The [facility] Physician GroupComment on above:Performed By: #### ESR #### [facility] [address] [place] [address] USANRBC%0.2 /100{WBC}Normal0-0.5The [facility] Comment on above:Performed By: #### ESR #### [facility] [address] [place] [address] USAPlatelet mean volume (Bld) [Entitic vol]8.0 fLNormal 6.6-10.1The [facility] Physician GroupComment on above:Performed By: #### ESR #### [facility] [address] [place] [id number] USAPlatelets (Bld) [#/Vol]165 10*3/zVIrgmmj291-082Iam [facility] Physician GroupComment on above:Performed By: #### ESR #### [facility] [address] [place] [address] USARBC (Bld) [#/Vol]4.94 10*6/uLNormal3.90-5.60The [facility] Physician GroupComment on above:Performed By: #### ESR #### [facility] [address] [place] [address] USAWBC (Bld) [#/Vol]7.2 10*3/uLNormal4.1-10.5The [facility] Physician GroupComment on above:Performed By: #### ESR #### [facility] [address] [place] [address] USAComprehensive Metabolic Panelon 78-05-0580Utehlux [Mass/Vol]4.0 g/dLNormal3.5-5.7The [facility] Physician GroupComment on above: Performed By: #### RA #### [facility] ,Albumin/Globulin [Mass ratio]1.9 {ratio}NormalThe [facility] Comment on above:Performed By: #### RA #### [facility] ,ALP [Catalytic activity/Vol]85 U/FDavolk42-251Wxj [facility] Comment on above:Result Comment: PERFORMED BY: [place] [address] [place] [address] PATHOLOGIST SHELLFISH CHECKER HECTOR MEJIA M.D.Performed By: #### RA #### [facility] ,ALT [Catalytic activity/Vol]27 U/LNormal7-52The [facility] Comment on above:Performed By: #### RA #### [facility] ,Anion gap [Moles/Vol]11.3 mmol/LNormal6.0-15.0The [facility] Comment on above:Performed By: #### RA #### [facility] ,AST [Catalytic activity/Vol]16 U/BBqntor25-43Zjs [facility] Comment on above:Performed By: #### RA #### [facility] ,Bilirubin [Mass/Vol]0.5 mg/dLNormal0.3-1.0The [facility] Physician GroupComment on above:Performed By: #### RA #### [facility] ,Calcium [Mass/Vol]8.9 mg/dLNormal8.6-10.3The [facility] Physician GroupComment on above:Performed By: #### RA #### [facility] ,Chloride [Moles/Vol]107 mmol/UZimxwt35-086Ttk [facility] Physician GroupComment on above:Performed By: #### RA #### [facility] ,CO2 [Moles/Vol]24.0 mmol/JLttwlq41.0-31.0The [facility] Physician GroupComment on above:Performed By: #### RA #### [facility] ,Creatinine [Mass/Vol]0.95 mg/dLNormal0.70-1.30The [facility] Comment on above:Performed By: #### RA #### [facility] ,GFR/1.73 sq M.predicted MDRD (S/P/Bld) [Vol rate/Area]mL/min/{1.73_m2}NormalThe [facility] Physician GroupComment on above:Performed By: #### RA #### [facility] ,Globulin (S) [Mass/Vol]2.1 g/dLNormalThe [facility] Physician GroupComment on above:Performed By: #### RA #### [facility] ,Glucose [Mass/Vol]96 mg/yBFimbiz00-445Ecj [facility]ician GroupComment on above:Result Comment: Random Glucose Reference Range is dependent on time and content of last meal. Glucose of more than 200 mg/dL in a nonstressed, ambulatory subject supports the diagnosis of Diabetes Mellitus. ADA recommended reference rangePerformed By: #### RA #### [facility] ,Potassium [Moles/Vol]4.3 mmol/LNormal3.5-5.1The [facility] Comment on above:Performed By: #### RA #### [facility] ,Protein [Mass/Vol]6.1 g/dLLow6.4-8.9The [facility] Physician GroupComment on above:Performed By: #### RA #### [facility] ,Sodium [Moles/Vol]138 mmol/PFhsoln916-437Ean [facility]ician GroupComment on above:Performed By: #### RA #### [facility] ,Urea nitrogen [Mass/Vol]28 mg/dLHigh7-25The [facility] Physician GroupComment on above:Performed By: #### RA #### [facility] ,Creatinine [Mass/volume] in Serum or PlasmaOrdered By: Romel Mendezrow on 42-22-6903Dtzuspgdof [Mass/Vol]Creatinine [Mass/volume] in Serum or Plasma 0.70-1.30[facility] HospitalDipstick and Microscopicon 10-10-2024 Appearance (U)ClearNormalClearThe [facility] Physician GroupComment on above: Order Comment: Name Collection Type:: Clean-Voided MidstreamPerformed By: #### ESR #### [facility] [address] [place] [address] USABacteria,UrineNone SeenNormalNone SeenAdventhealth Winter Garden Physician GroupComment on above:Order Comment: Name Collection Type:: Clean- Voided MidstreamPerformed By: #### ESR #### [address] [address] USABilirubin,UrineNegativeNormalNegativeAdventhealth Winter Garden Physician GroupComment on above:Order Comment: Name Collection Type:: Clean- Voided MidstreamPerformed By: #### ESR #### [address] [address] USAColor (U)YellowNormalYellowAdventhealth Winter Garden [facility] Comment on above:Order Comment: Name Collection Type:: Clean-Voided Midstream Performed By: #### ESR #### [address] [address] USAGlucose Ql (U)NormalNormalNormalThe Atrium Health Union Physician GroupComment on above:Order Comment: Name Collection Type:: Clean-Voided MidstreamPerformed By: #### ESR #### [address] [address] USAHyaline Casts,UrineNoneNormal0-8The [facility] Physician GroupComment on above:Order Comment: Name Collection Type:: Clean-Voided MidstreamPerformed By: #### ESR #### [address] [address] USAKetones Ql (U)NegativeNormalNegativeAdventhealth Winter Garden Physician GroupComment on above:Order Comment: Name Collection Type:: Clean- Voided MidstreamPerformed By: #### ESR #### [address] [address] USALeukocyte esterase Test strip Ql (U)NegativeNormalNegative [facility] Physician GroupComment on above:Order Comment: Name Collection Type:: Clean-Voided MidstreamPerformed By: #### ESR #### [place] [address] USAMucus,Urine1+Critically abnormalThe [facility] Union Physician GroupComment on above:Order Comment: Name Collection Type:: Clean-Voided MidstreamResult Comment: PERFORMED BY: [place] [address] PATHOLOGIST SHELLFISH CHECKER HECTOR MEJIA M.D.Performed By: #### ESR #### [place] [address] USANitrite,UrineNegativeNormalNegativeThe [facility] Union Physician GroupComment on above:Order Comment: Name Collection Type:: Clean-Voided MidstreamPerformed By: #### ESR #### [place] [address] USAOccult Blood,UrineNegativeNormalNegativeThe [facility] Union Physician GroupComment on above:Order Comment: Name Collection Type:: Clean- Voided MidstreamPerformed By: #### ESR #### [place] [address] USApH (U)5.5 [pH]Normal5.0-9.0[facility] Comment on above:Order Comment: Name Collection Type:: Clean-Voided Midstream Performed By: #### ESR #### [place] [id number] USAProtein (U) [Mass/Vol]20 mg/dLHighNegativeThe [facility] Union Physician GroupComment on above:Order Comment: Name Collection Type:: Clean- Voided MidstreamPerformed By: #### ESR #### [place] [id number] USARBC,Urine1 [HPF]Normal0-4[facility] Comment on above:Order Comment: Name Collection Type:: Clean-Voided Midstream Performed By: #### ESR #### [facility] [address] [place] [address] USASpecificy [place],Urine1.547Lbckms8.001-1.030The [facility] Physician GroupComment on above:Order Comment: Name Collection Type:: Clean- Voided MidstreamPerformed By: #### ESR #### [place] [address] USAUrobilinogen,UrineNormalNormalNormalThe [facility] Union Physician GroupComment on above:Order Comment: Name Collection Type:: Clean- Voided MidstreamPerformed By: #### ESR #### [place] [address] USAWBC,Urine1 [HPF]Normal0-4[facility] Comment on above:Order Comment: Name Collection Type:: Clean-Voided Midstream Performed By: #### ESR #### [place] [address] USAEosinophils Auto (Bld) [#/Vol]Ordered By: Romel Davis on 90-12-3101Ghdsxwzggrw (Bld) [#/Vol]Automated eosinophil count0.0-0.45 [facility] HospitalEosinophils/100 WBC Auto (Bld)Ordered By: Romel Davis on 92-98-0159Kvoujycugzf/100 WBC (Bld)Automated eosinophil %. [facility] HospitalEpithelial cells.squamous [#/area] in Urine sediment by Automated countOrdered By: Romel Davis on 74-61-1528Dlwltqtfdp cells.squamous Auto (Urine sed) [#/Area]Epithelial cells.squamous [#/area] in Urine sediment by Automated countOhio State East HospitalErythrocyte Sedimentation Rateon 04-01-1482GWD (Bld) [Velocity]6 mm/hNormal0-19The [facility] Physician GroupComment on above:Result Comment: PERFORMED BY: [place] [address] PATHOLOGIST SHELLFISH CHECKER HECTOR MEJIA M.D.Performed By: #### ESR #### [facility] [address] StreetErythrocyte distribution width Auto (RBC) [Ratio]Ordered By: Romel Davis on 83-04-5639Dicpizkyfwi distribution width (RBC) [Ratio] Erythrocyte distribution width [Ratio] by Automated count12.0-14.8[facility] HospitalErythrocyte sedimentation rate by Photometric method Ordered By: Romel Davis on 94-80-9644SLJ Photometric method (Bld) [Velocity] Erythrocyte sedimentation rate by Photometric method0-[facility] HospitalErythrocytes [#/area] in Urine sediment by Automated countOrdered By: Romel Davis on 66-97-9554HRV Auto (Urine sed) [#/Area]Erythrocytes [#/area] in Urine sediment by Automated count0-[facility]red Hospital DaytonGlobulin Calc (S) [Mass/Vol]Ordered By: Romel Davis on 10-10-2024 Globulin (S) [Mass/Vol]Serum globulin measurement by calculation (mass/volume) [facility] HospitalGlucose [Mass/volume] in Serum or PlasmaOrdered By: Romel Davis on 17-45-4735Llbwiun [Mass/Vol]Glucose [Mass/volume] in Serum or Izmwdt32-261RhchuyaeiOhio State East HospitalComment on above:ADA recommended reference rangeRandom Glucose Reference Range is dependent on time and content of last meal. Glucose of more than 200 mg/dL in a nonstressed, ambulatory subject supports the diagnosisof Diabetes Mellitus.Glucose [Mass/volume] in Urine by Test stripOrdered By: Romel Davis on 10-10-2024 Glucose Test strip (U) [Mass/Vol]Glucose [Mass/volume] in Urine by Test strip NormalOhio State East HospitalHematocrit Auto (Bld) [Volume fraction] Ordered By: Romel Davis on 88-43-7905Dptjbnhppo (Bld) [Volume fraction] Hematocrit [Volume Fraction] of Blood by Automated count38.8-50.0[facility] HospitalHemoglobin Test strip Ql (U)Ordered By: Romel Davis 09-60-9559Ygrpfxbqhf Ql (U)Hemoglobin [Presence] in Urine by Test stripNegative [facility] HospitalHemoglobin [Mass/volume] in BloodOrdered By: Romel Davis on 14-65-4820Ntkelcknag (Bld) [Mass/Vol]Hemoglobin [Mass/volume] in Blood13.0-17.0[facility] HospitalHyaline casts [#/area] in Urine sediment by Automated countOrdered By: Romel Davis on 90-23-6681Mcdbimj casts Auto (Urine sed) [#/Area]Hyaline casts [#/area] in Urine sediment by Automated count0-8[facility] HospitalKetones Test strip Ql (U) Ordered By: Romel Davis on 69-19-4227Lrricvo Ql (U)Ketones [Presence] in Urine by Test stripNegKettering Health Main CampusLeukocyte esterase [Presence] in Urine by Test stripOrdered By: Romel Davis on 10-10-2024 Leukocyte esterase Test strip Ql (U)Leukocyte esterase [Presence] in Urine by Test stripNegKettering Health Main CampusLeukocytes [#/area] in Urine sediment by Automated countOrdered By: Romel Davis on 56-78-9489WGQ Auto (Urine sed) [#/Area]Leukocytes [#/area] in Urine sediment by Automated count0-4 [facility] HospitalLeukocytes [#/volume] corrected for nucleated erythrocytes in Blood by Automated counOrdered By: Romel Davis on 10-10-2024 WBC corrected for nucl RBC Auto (Bld) [#/Vol]Leukocytes [#/volume] corrected for nucleated erythrocytes in Blood by Automated coun4.1-10.5FKindred Hospital DaytonLymphocytes Auto (Bld) [#/Vol]Ordered By: Romel Davis on 66-73-6109Xomtbetofib (Bld) [#/Vol]Lymphocytes [#/volume] in Blood by Automated countLow1.00-4.8[facility] HospitalLymphocytes/100 WBC Auto (Bld) Ordered By: Romel Davis on 47-94-1168Vaejvrzwmcw/100 WBC (Bld)Lymphocytes/100 leukocytes in Blood by Automated count.[facility] HospitalMCH Auto (RBC) [Entitic mass]Ordered By: Romel Davis on 37-72-8235NKC (RBC) [Entitic mass]MCH [Entitic mass] by Automated count27.5-35.2FKindred Hospital DaytonMCHC Auto (RBC) [Mass/Vol]Ordered By: Romel Davis on 10-10-2024 MCHC (RBC) [Mass/Vol]MCHC [Mass/volume] by Automated count32.5-35.6FKindred Hospital DaytonMCV Auto (RBC) [Entitic vol]Ordered By: Romel Davis on 22-62-9611VHG (RBC) [Entitic vol]MCV [Entitic volume] by Automated count83.5-101 [facility] HospitalMonocytes Auto (Bld) [#/Vol]Ordered By: Romel Davis on 50-17-8718Zopdlzsii (Bld) [#/Vol]Automated blood monocyte countHigh 0.0-0.8[facility] HospitalMonocytes/100 WBC Auto (Bld)Ordered By: Romel Davis on 80-95-5744Wdzjactul/100 WBC (Bld)Automated monocyte %. [facility] HospitalMucus [Presence] in Urine by AutomatedOrdered By: Romel Davis on 13-77-2073Yzcvy Auto Ql (U)Mucus [Presence] in Urine by AutomatedAbnormalOhio State East HospitalNeutrophils Auto (Bld) [#/Vol] Ordered By: Romel Davis on 94-02-0482Kaerbnzeuab (Bld) [#/Vol]Neutrophils [#/volume] in Blood by Automated count1.8-7.7FKindred Hospital Dayton Neutrophils/100 WBC Auto (Bld)Ordered By: Romel Davis on 10-10-2024 Neutrophils/100 WBC (Bld)Automated neutrophil %.[facility] HospitalNitrite Test strip Ql (U)Ordered By: Romel Davis on 64-13-4559Ypfeabs Ql (U)Nitrite [Presence] in Urine by Test stripNegativeOhio State East HospitalNo Panel InformationOrdered By: Romel Davis on 10-10-2024 Estimated GFR (CKD-EPI)> 60.0 mL/MinOhio State East HospitalPharmacy Creatinine Clearance (ChemN/AFirelands Regional Medical CenterNucleated erythrocytes [Presence] in Blood by Automated countOrdered By: Romel Davis on 67-08-5858Sytbmsnsi RBC Auto Ql (Bld)Nucleated erythrocytes [Presence] in Blood by Automated count0-0.5FKindred Hospital DaytonPlatelet mean volume Auto (Bld) [Entitic vol]Ordered By: Romel Davis on 15-01-2540Sxegjlib mean volume (Bld) [Entitic vol]Platelet mean volume [Entitic volume] in Blood by Automated count6.6-10.1FKindred Hospital DaytonPlatelets Auto (Bld) [#/Vol]Ordered By: Romel Davis on 56-39-7145Ocakhiqmq (Bld) [#/Vol]Platelets [#/volume] in Blood by Automated ahrsr387-636HgfpmxivrOhio State East Hospital Potassium [Moles/volume] in Serum or PlasmaOrdered By: Romel Davis on 02-02-7566Nssveijus [Moles/Vol]Potassium [Moles/volume] in Serum or Plasma 3.5-5.1FKindred Hospital DaytonProtein Test strip (U) [Mass/Vol]Ordered By: Romel Davis on 15-09-2030Xvawsnf (U) [Mass/Vol]Protein [Mass/volume] in Urine by Test stripHighNegativeOhio State East HospitalProtein [Mass/volume] in Serum or PlasmaOrdered By: Romel Davis on 06-69-7189Rgnmdfg [Mass/Vol]Protein [Mass/volume] in Serum or PlasmaLow6.4-8.9[facility] HospitalRBC Auto (Bld) [#/Vol]Ordered By: Romel Davis on 11-76-1822XKH (Bld) [#/Vol]Erythrocytes [#/volume] in Blood by Automated count3.90-5.60 [facility] Hospitalerum or plasma albumin/globulin mass ratio Ordered By: Romel Davis on 24-56-2428Aftbgob/Globulin [Mass ratio]Serum or plasma albumin/globulin mass ratioOhioHealth Grady Memorial Hospitalerum or plasma anion gap determinationOrdered By: Romel Davis on 74-25-9662Yjdkw gap [Moles/Vol]Serum or plasma anion gap determination6.0-15.0[facility] Hospitalerum or plasma complement C3 measurement (mass/volume)Ordered By: Romel Davis on 28-94-9019Sgjxmhvzra C3 [Mass/Vol]Serum or plasma complement C3 measurement (mass/volume)82-167[facility] HospitalComment on above:Performed at: [facility] [id number] Director: Richy Ardon PhD, Phone: [phone] or plasma complement C4 measurement (mass/volume)Ordered By: Romel Davis on 08-92-5785Cryluhxlev C4 [Mass/Vol]Serum or plasma complement C4 measurement (mass/volume)12-38[facility] Hospitalodium [Moles/volume] in Serum or PlasmaOrdered By: Romel Davis on 07-85-4409Dbrhwd [Moles/Vol]Sodium [Moles/volume] in Serum or Gdxbxh873-457DadorzhrtOhioHealth Grady Memorial Hospitalpecific gravity Test strip (U) [Rel density]Ordered By: Romel Davis on 55-36-3070Ehmzmzir gravity (U) [Rel density]Specific gravity of Urine by Test strip1.001-1.030[facility] HospitalTotal hemolytic complement CH50 assayOrdered By: Romel Davis on 59-20-5394Bitil Complement (CH50)59 U/mL>41[facility] Comment on above:Age Male Female 1 - 30 days Not Estab. Not Estab. 31 days - 6 months >32 >20 7 months - 17 years >39 >39 >17 years >41 >41 NOTE: The adult ( >17 years ) reference intervalrange is used to flag abnormals on this report. If the patient is 17 years old or younger, use the table above to determine out of range values.Performed at: [employer] [id number] Director: Richy Ardon PhD, Phone: [phone] nitrogen [Mass/volume] in Serum or PlasmaOrdered By: Romel Davis on 86-56-7081Czjv nitrogen [Mass/Vol]Urea nitrogen [Mass/volume] in Serum or Plasma High7-25[facility] HospitalUrobilinogen Test strip (U) [Mass/Vol] Ordered By: Romel Davis on 53-98-2218Hikyrkqihkgk (U) [Mass/Vol]Urobilinogen [Mass/volume] in Urine by Test stripNormalOhio State East HospitalWBC Auto (Bld) [#/Vol]Ordered By: Romel Davis on 80-69-0525IDQ (Bld) [#/Vol] Leukocytes [#/volume] in Blood by Automated count4.1-10.5FKindred Hospital DaytonpH Test strip (U)Ordered By: Romel Davis on 51-28-6255zH (U)pH of Urine by Test strip5.0-9.0[facility] HospitalXR chest 2V*on 11-29-9610FG chest 2V*[facility] [place] [place] [address] XRay Report Signed Patient: Valentin Torre MR#: [id number] 29 : 1955 Acct:[id number] Age/Sex: 69 / M ADM Date: 09/19/24 [facility]: [facility] Attending Dr: Myriam Fonseca SUPERVISOR COMPOSING ROOM Copies to: Myriam Fonseca APRN Ordering Provider: Myriam Fonseca APRN Date of Service: 09/19/24 XR/XR chest 2V*: R05.9 - Cough, unspecified Chest 2 views CLINICAL HISTORY: Productive cough for one week. COMPARISON: None FINDINGS: Heart normal in size. Lungs are clear. No free air. XR/XR chest 2V* IMPRESSION: NO ACUTE CARDIOPULMONARY ABNORMALITY. Impression dictated by: Marcial Patel Jr., D.O.09/19/2024 10:00 AM Dictation Location: [place] [address] Transcribed By: [facility] 09/19/24 1000 Dictated By: Marcial Patel Jr, DO 09/19/24 1000 Signed By: 09/19/[address] [place] [address] Physician GroupAmbulatory Visit Summaryon 41-14-5982Nduavpmkym Visit SummaryAmbulatory Visit Summary VALENTIN TORRE :1955 Visit Date:09/03/2024 [...] Tab) aspirin (aspirin 81 mg oral capsule) fexofenadine-pseudoephedrine (Seema D OTC 24HR) folic acid (folic acid 1 mg Tab) hydrochlorothiazide-lisinopril (hydrochlorothiazide-lisinopril 12.5 mg-20 mg Tab) hydroxychloroquine (hydroxychloroquine 200 [...] Procedure on shoulder, Procedure on spine, Radio-frequency ablationsystem, Skin cancer, Tympanoplasty. Discharge Vitals Temperature (Temporal Artery) 37 ?C Heart Rate (Peripheral) 71 Respiratory Rate 16 Blood Pressure 129/77 Height 173 cm Height 68 in Weight 98.6 kg Weight 216.92 lb BMI 32.94 What to do next You Need to Schedule the Following Appointments Follow Up with FLAVIO ONEAL, Zac De Oliveira, EMILIA When: Where: [facility] [address] [place] [phone] Medications What How Much When Why Instructions [...] prescribing physician if questions or concerns Unchanged fexofenadine-pseudoephedrine (Seema D OTC 24HR) By Mouth Every day Contact prescribing physician if questions or concerns Unchanged folic acid (folic acid 1 mg Tab) By Mouth Every day Contact prescribing physician if questions or concerns Unchanged hydrochlorothiazide-lisinopril (hydrochlorothiazide-lisinopril 12.5 mg-20 mg Tab) Contactprescribing physician if questions or concerns Unchanged hydroxychloroquine (hydroxychloroquine 200 mg Tab) By Mouth Every day Contact prescribingphysician if questions or concerns Unchanged leflunomide (leflunomide [...] After After laser th (more content not included)...[facility] Urology Office/Clinic Noteon 88-19-7827Utokhzz Office/Clinic NoteUrology Office/Clinic Note Chief Complaint kidney stones HPI [...] Electrolyte panel 10/20/23 - wnl. KUB 01/11/24 FR - Kidneys are partially obscured, R>L. Group of 3 tiny stones at the LLQ of the abdomen which are a couple mm in size and potentially renal stones. A stone overlying the RUP 3 mmwhich probably correlates w/the renal stone seen previously on that side. S/p L ESWL 02/16/24. KUB 08/27/24 TBH - Stable 4 mm RUP stone. No L renal stones. Taking potassium bicarb 25 mEq twice daily. Reviewed imaging results. Discussed continued monitoredvs intervention. Pt prefers latter. Risks/benefits of ESWL [...] De Oliveira, UR [facility] [address] [place] [phone] Additional Instructions: esthela De Oliveira ESWL Patient Education Laser Therapy for Kidney Stones, Care After Laser Therapy for Kidney Stones IAdela, personally scribed for Dr. Muniz on 09/03/2024 [...] Procedure on shoulder, Procedure on spine, Radio-frequency ablationsystem, Skin cancer, Tympanoplasty. Medications acetaminophen 500 mg Tab, Oral, q6hr Seema D OTC 24HR, Oral, Daily aspirin 81 mg oral capsule, Oral, q24hr Effervescent Potassium 25 mEq oral tablet, 25 mEq= 1 tab(s), Oral, BID, 3 refills folic acid 1 mg Tab, Oral, Daily hydrochlorothiazide-lisinopril 12.5 mg-20 mg Tab hydroxychloroquine 200 mg Tab, Oral, Daily leflunomide 10 mg oral tablet, Oral, Daily Medrol 4 mg Tab meloxicam 15 mg Tab methotrexate 1 g injection, IV, Once montelukast 10 mg Tab, Oral, Daily omeprazole 40 mg Cap-DR, Oral, Daily prednisoLONE, Oral, (more content not included)...[facility] HospitalComment on above:Result Comment: Electronically Signed By: Zac MUNIZ MD\.br\Date and Time Signed: 09/03/24 11:02 EDT\.br\Electronically Co- Signed By: Adela Frias\.br\Date and Time Co-Signed: 09/03/24 11:01 EDTXR hip RT min 2V(w/wo pelvis)*on 97-99-7663KI hip RT min 2V(w/wo pelvis)*[facility] [address] [place] [address] XRay Report Signed Patient: Valentin Torre MR#: [id number] 29 : 1955 Acct:[id number] Age/Sex: 69 / M ADM Date: 08/29/24 Loc: [facility] Room: Type: [facility] Attending [...] PROCESS.. Impression dictated by: Marcial Patel Jr., D.ORigo08/29/2024 2:18 PM Dictation Location: [place] [address] Transcribed By: [facility] 08/29/24 141 Dictated By: Marcial Patel Jr, DO 08/29/24 141 Signed By: 08/29/24 1418[facility] Physician GroupAlanine aminotransferase [Enzymatic activity/volume] in Serum or PlasmaOrdered By: Romel Davis on 67-78-3480VXW [Catalytic activity/Vol]21 U/L7-52[facility] HospitalAlbumin [Mass/volume] in Serum or Plasma by Bromocresol green (BCG) dye binding methoOrdered By: Romel Davis on 33-51-1598Qtqyqhs BCG dye [Mass/Vol] 4.2 g/dL3.5-5.7FKindred Hospital DaytonAlkaline phosphatase [Enzymatic activity/volume] in Serum or PlasmaOrdered By: Romel Davis on 67-09-4800CIM [Catalytic activity/Vol]85 U/L01-439AknkaekssOhio State East HospitalAspartate aminotransferase [Enzymatic activity/volume] in Serum or PlasmaOrdered By: Romel Davis on 45-05-2859ZBI [Catalytic activity/Vol]16 U/A99-13YhrthxqteOhio State East HospitalBacteria [Presence] in Urine by AutomatedOrdered By: Romel Davis on 76-29-5403Zwmnchwx Auto Ql (U)None seen [HPF]None Seen [facility] HospitalBasophils Auto (Bld) [#/Vol]Ordered By: Romel Davis on 22-50-6153Xntwkkbzn (Bld) [#/Vol]0.0 10*3/uL0.0-0.2FKindred Hospital DaytonBasophils/100 WBC Auto (Bld)Ordered By: Romel Davis on 85-85-4727Iaafnwwho/100 WBC (Bld)0.5 %.[facility] Bilirubin Test strip Ql (U)Ordered By: Romel Davis on 73-59-5820Mdoahyvsk Ql (U)NegativeNegativeOhio State East HospitalBilirubin.total [Mass/volume] in Serum or PlasmaOrdered By: Romel Davis on 07-03-2024 Bilirubin [Mass/Vol]0.5 mg/dL0.3-1.0[facility] HospitalCalcium [Mass/volume] in Serum or PlasmaOrdered By: Romel Davis on 60-57-4716Rcjiuku [Mass/Vol]8.7 mg/dL8.6-10.3FKindred Hospital DaytonCarbon dioxide, total [Moles/volume] in Serum or PlasmaOrdered By: Romel Davis on 07-03-2024 CO2 [Moles/Vol]22.6 mmol/L21.0-31.0[facility] HospitalChloride [Moles/volume] in Serum or PlasmaOrdered By: Romel Davis on 07-03-2024 Chloride [Moles/Vol]105 mmol/L09-396TgrtsmcrkOhio State East HospitalColor Auto (U)Ordered By: Romel Davis on 34-32-7488Ybtsn (U)YellowYellowOhio State East HospitalCreatinine [Mass/volume] in Serum or PlasmaOrdered By: Romel Davis on 56-56-6128Nbhwzbttlt [Mass/Vol]0.87 mg/dL0.70-1.30[facility] HospitalEosinophils Auto (Bld) [#/Vol]Ordered By: Romel Davis on 71-39-0983Hzyfdsxuunw (Bld) [#/Vol]0.1 10*3/uL0.0-0.45[facility] HospitalEosinophils/100 WBC Auto (Bld)Ordered By: Romel Davis on 47-72-8230Gnjlehjeczg/100 WBC (Bld)1.1 %.[facility] Epithelial cells.squamous [#/area] in Urine sediment by Automated countOrdered By: Romel Davis on 27-20-0150Jiqaqezqpr cells.squamous Auto (Urine sed) [#/Area]1-2 [HPF]0-2FKindred Hospital DaytonErythrocyte distribution width Auto (RBC) [Ratio]Ordered By: Romel Davis on 25-27-6846Lprqmwuccvv distribution width (RBC) [Ratio]15.6 %High12.0-14.8[facility] HospitalErythrocyte sedimentation rate by Photometric methodOrdered By: Romel Davis on 91-90-6542YWP Photometric method (Bld) [Velocity]7 mm/hr0-19[facility] HospitalErythrocytes [#/area] in Urine sediment by Automated countOrdered By: Romel Davis on 28-43-1425ZIA Auto (Urine sed) [#/Area]1-2 [HPF]0-4FKindred Hospital DaytonGlobulin Calc (S) [Mass/Vol]Ordered By: Romel Davis on 33-07-3278Xstvkvtf (S) [Mass/Vol]2.1 g/dLOhio State East HospitalGlucose [Mass/volume] in Serum or PlasmaOrdered By: Romel Davis on 59-98-5464Zdzdkik [Mass/Vol]136 mg/aANxxq54-727MziicdzqdOhio State East HospitalComment on above:ADA recommended reference rangeRandom Glucose Reference Range is dependent on time and content of last meal. Glucose of more than 200 mg/dL in a nonstressed, ambulatory subject supports the diagnosisof Diabetes Mellitus.Glucose [Mass/volume] in Urine by Test stripOrdered By: Romel Davis on 97-31-0651Wvwzfpz Test strip (U) [Mass/Vol]Normal mg/dLNormalOhio State East HospitalHematocrit Auto (Bld) [Volume fraction]Ordered By: Romel Davis on 62-55-2501Rgqckiqydj (Bld) [Volume fraction]44.6 %38.8-50.0 [facility] HospitalHemoglobin Test strip Ql (U)Ordered By: Romel Davis on 23-91-4683Ecjtwkcaff Ql (U)NegativeNegativeOhio State East HospitalHemoglobin [Mass/volume] in BloodOrdered By: Romel Davis on 07-03-2024 Hemoglobin (Bld) [Mass/Vol]15.3 g/dL13.0-17.0[facility] Hyaline casts [#/area] in Urine sediment by Automated countOrdered By: Romel Davis on 12-99-8874Skjdwno casts Auto (Urine sed) [#/Area]9-19 [LPF]High0-8 [facility] HospitalKetones Test strip Ql (U)Ordered By: Romel Davis on 70-48-6952Jarjcok Ql (U)TraceHighNegativeOhio State East HospitalLeukocyte esterase [Presence] in Urine by Test stripOrdered By: Romel Davis on 84-65-3668Memfyyrpr esterase Test strip Ql (U)NegativeNegative [facility] HospitalLeukocytes [#/area] in Urine sediment by Automated countOrdered By: Romel Davis on 43-85-4830UKL Auto (Urine sed) [#/Area]1-2 [HPF]0-4FKindred Hospital DaytonLeukocytes [#/volume] corrected for nucleated erythrocytes in Blood by Automated counOrdered By: Romel Davis on 55-88-6804BTZ corrected for nucl RBC Auto (Bld) [#/Vol]5.5 10*3/uL4.1-10.5FKindred Hospital DaytonLymphocytes Auto (Bld) [#/Vol] Ordered By: Romel Davis on 93-84-5116Yunzvwjwxtu (Bld) [#/Vol]0.8 10*3/uLLow 1.00-4.8[facility] HospitalLymphocytes/100 WBC Auto (Bld)Ordered By: Romel Davis on 96-41-0149Nflrqamfdlk/100 WBC (Bld)14.0 %.[facility] Auto (RBC) [Entitic mass]Ordered By: Romel Davis on 40-88-8102OIR (RBC) [Entitic mass]30.0 pg27.5-35.2FKindred Hospital DaytonMCHC Auto (RBC) [Mass/Vol]Ordered By: Romel Davis on 10-06-9647WLNS (RBC) [Mass/Vol]34.2 g/dL32.5-35.6FKindred Hospital DaytonMCV Auto (RBC) [Entitic vol]Ordered By: Romel Davis on 41-35-0786JYQ (RBC) [Entitic vol]87.5 fL83.5-101[facility] HospitalMonocytes Auto (Bld) [#/Vol] Ordered By: Romel Davis on 40-15-7721Vfvtrwxzx (Bld) [#/Vol]0.4 10*3/uL 0.0-0.8[facility] HospitalMonocytes/100 WBC Auto (Bld)Ordered By: Romel Davis on 99-00-9709Aoqmfvjgr/100 WBC (Bld)7.9 %.[facility] HospitalMucus [Presence] in Urine by AutomatedOrdered By: Romel Davis on 34-93-5274Jizmr Auto Ql (U)1+ [LPF]AbnormalOhio State East Hospital Neutrophils Auto (Bld) [#/Vol]Ordered By: Romel Davis on 07-03-2024 Neutrophils (Bld) [#/Vol]4.2 10*3/uL1.8-7.7FKindred Hospital Dayton Neutrophils/100 WBC Auto (Bld)Ordered By: Romel Davis on 07-03-2024 Neutrophils/100 WBC (Bld)76.5 %.[facility] HospitalNitrite Test strip Ql (U)Ordered By: Romel Davis on 09-33-5578Jxiyhkz Ql (U)Negative NegativeOhio State East HospitalNo Panel InformationOrdered By: Romel Davis on 68-40-0597Eeowkoisy GFR (CKD-EPI)> 60.0 mL/MinOhio State East HospitalPharmacy Creatinine Clearance (ChemN/[facility] HospitalTotal Complement (CH50)56 U/mL>41Ohio State East HospitalComment on above:Age Male Female 1 - 30 days Not Estab. Not Estab. 31 days - 6 months >32 >20 7 months - 17 years >39 >39 >17 years >41 >41 NOTE: The adult ( >17 years ) reference intervalrange is used to flag abnormals on this report. If the patient is 17 years old or younger, use the table above to determine out of range values.Performed at: - [facility] [id number] Director: Richy Ardon PhD, Phone: [phone] erythrocytes [Presence] in Blood by Automated countOrdered By: Romel Davis on 05-70-7235Wtsbcccyw RBC Auto Ql (Bld)0.1 /100{WBC}0-0.5FKindred Hospital DaytonPlatelet mean volume Auto (Bld) [Entitic vol]Ordered By: Romel Davis on 33-49-2000Taxdpucz mean volume (Bld) [Entitic vol]8.2 fL6.6-10.1 [facility] HospitalPlatelets Auto (Bld) [#/Vol]Ordered By: Romel Davis on 13-32-5055Lmintzklc (Bld) [#/Vol]160 10*3/xC674-205KykbyizaxOhio State East HospitalPotassium [Moles/volume] in Serum or PlasmaOrdered By: Romel Davis on 90-30-5159Rkaeezvdk [Moles/Vol]4.0 mmol/L3.5-5.1FKindred Hospital DaytonProtein Test strip (U) [Mass/Vol]Ordered By: Romel Davis on 34-71-0318Uccnfuz (U) [Mass/Vol]Trace mg/dLHighNegativeOhio State East HospitalProtein [Mass/volume] in Serum or PlasmaOrdered By: Romel Davis on 71-44-6882Zeelfwb [Mass/Vol]6.3 g/dLLow6.4-8.9[facility] HospitalRBC Auto (Bld) [#/Vol]Ordered By: Romel Davis on 68-94-5968IPT (Bld) [#/Vol]5.10 10*6/uL3.90-5.60[facility] Hospitalerum or plasma albumin/globulin mass ratioOrdered By: Romel Davis on 07-03-2024 Albumin/Globulin [Mass ratio]2.0 {ratio}[facility] Hospitalerum or plasma anion gap determinationOrdered By: Romel Davis on 01-49-3363Edgkb gap [Moles/Vol]13.4 mmol/L6.0-15.0[facility] Hospitalerum or plasma complement C3 measurement (mass/volume)Ordered By: Romel Davis on 10-55-2991Vqrovbxftd C3 [Mass/Vol]127 mg/eU84-418AgissbcjkOhio State East HospitalComment on above:Performed at: [address] [place] [id number] Director: Richy Ardon PhD, Phone: [phone] or plasma complement C4 measurement (mass/volume)Ordered By: Romel Davis on 41-95-7455Cdesyzdwug C4 [Mass/Vol]15 mg/rR97-96FqzmmfhgeOhio State East Hospital Comment on above:Performed at: CB - [facility] [address] [id number] Director: Richy Ardon PhD, Phone: [phone] [Moles/volume] in Serum or PlasmaOrdered By: Romel Davis on 47-31-8324Tcfxfv [Moles/Vol]137 mmol/S514-883YaioriqjkOhioHealth Grady Memorial Hospitalpecific gravity Test strip (U) [Rel density]Ordered By: Romel Davis on 00-77-6551Vtcaxpkw gravity (U) [Rel density]1.0271.001-1.030[facility] HospitalUrea nitrogen [Mass/volume] in Serum or PlasmaOrdered By: Romel Davis on 13-59-9999Wbhk nitrogen [Mass/Vol]17 mg/dL06-14[facility] Urine appearanceOrdered By: Romel Davis on 79-48-3956Fcxnajdzmp (U)ClearClear [facility] HospitalUrobilinogen Test strip (U) [Mass/Vol]Ordered By: Romel Davis on 33-53-5878Vblftcihxkdz (U) [Mass/Vol]2 mg/dLHighNormal [facility] HospitalWBC Auto (Bld) [#/Vol]Ordered By: Romel Davis on 33-78-1382WVU (Bld) [#/Vol]5.5 10*3/uL4.1-10.5FKindred Hospital DaytonpH Test strip (U)Ordered By: Romel Davis on 53-04-7935qE (U)6.5 [pH]5.0-9.0[facility] HospitalComprehensive metabolic panelon 28-52-4598Gjcmmth [Mass/Vol]4.4 g/dL3.2 - 5.3 g/dLProMedica Health SystemALP [Catalytic activity/Vol]80 U/L39 - 130 U/[facility] Health SystemALT No additional P-5'-P [Catalytic activity/Vol]24 U/L0 - 40 U/[facility] Health SystemAnion gap [Moles/Vol]9 mmol/L5 - 15 mmol/[facility] Health SystemAST [Catalytic activity/Vol]18 U/L0 - 41 U/[facility] SystemBilirubin [Mass/Vol]0.5 mg/dL0.3 - 1.2 mg/dLProUniversity Hospitals [facility] SystemCalcium [Mass/Vol]9.6 mg/dL8.5 - 10.5 mg/dLSouthwest General Health Center SystemChloride [Moles/Vol]107 mmol/L98 - 109 mmol/[facility] SystemCO2 [Moles/Vol]23 mmol/L22 - 32 mmol/[facility] SystemCreatinine [Mass/Vol]1.10 mg/dL0.60 - 1.30 mg/dLTrumbull Memorial HospitalComment on above:METHOD TRACEABLE [facility] STANDARDeGFR (CKD-EPI)non-race - [facility] CenterComment on above: Reported eGFR is based on the CKD-EPI 2020 equation that does not use a race coefficient. Glucose [Mass/Vol]86 mg/dL65 - 99 mg/dLTrumbull Memorial HospitalInterpretation and review of laboratory resultsAbnormalTrumbull Memorial HospitalPotassium [Moles/Vol]4.0 mmol/L3.5 - 5.0 mmol/[facility] SystemProtein [Mass/Vol] 6.9 g/dL6.0 - 8.0 g/dLNovant Health Mint Hill Medical Centerodium [Moles/Vol]139 mmol/L134 - 146 mmol/[facility] SystemUrea nitrogen [Mass/Vol]33 mg/dLHigh5 - 27 mg/dLLancaster Rehabilitation HospitalAlanine aminotransferase [Enzymatic activity/volume] in Serum or PlasmaOrdered By: Romel Davis on 81-69-5528VMA [Catalytic activity/Vol]22 U/L7-52[facility] HospitalAlbumin [Mass/volume] in Serum or Plasma by Bromocresol green (BCG) dye binding methoOrdered By: Romel Davis on 58-67-5695Kpjsbij BCG dye [Mass/Vol] 3.7 g/dL3.5-5.7FKindred Hospital DaytonAlkaline phosphatase [Enzymatic activity/volume] in Serum or PlasmaOrdered By: Romel Davis on 88-86-5254OIL [Catalytic activity/Vol]79 U/J44-060WywywynumOhio State East HospitalAspartate aminotransferase [Enzymatic activity/volume] in Serum or PlasmaOrdered By: Romel Davis on 88-43-0673IJD [Catalytic activity/Vol]17 U/Q71-54OfjvslsuoOhio State East HospitalAutomated erythrocytes count in urine sediment (number/area)Ordered By: Romel Davis on 85-11-0793HIF Auto (Urine sed) [#/Area]1-2 [HPF]0-4FKindred Hospital DaytonAutomated leukocytes count in urine sediment (number/area)Ordered By: Romel Davis on 94-52-0280AAG Auto (Urine sed) [#/Area]0-1 [HPF]0-4FKindred Hospital DaytonBasophils Auto (Bld) [#/Vol]Ordered By: Romel Davis on 65-65-4990Ptrdysorv (Bld) [#/Vol]0.0 10*3/uL0.0-0.2FKindred Hospital DaytonBasophils/100 WBC Auto (Bld) Ordered By: Romel Davis on 08-15-4678Mjllgxylv/100 WBC (Bld)0.5 %.[facility] HospitalBilirubin Test strip Ql (U)Ordered By: Romel Davis on 44-91-8871Njabzgaqh Ql (U)NegativeNegativeOhio State East Hospital Bilirubin.total [Mass/volume] in Serum or PlasmaOrdered By: Romel Davis on 67-53-1636Hctgthsfy [Mass/Vol]0.6 mg/dL0.3-1.0[facility] Calcium [Mass/volume] in Serum or PlasmaOrdered By: Romel Davis on 03-13-2024 Calcium [Mass/Vol]8.8 mg/dL8.6-10.3FKindred Hospital DaytonCarbon dioxide, total [Moles/volume] in Serum or PlasmaOrdered By: Romel Davis on 79-01-7055TQ5 [Moles/Vol]25.0 mmol/L21.0-31.0[facility] Chloride [Moles/volume] in Serum or PlasmaOrdered By: Romel Davis on 55-03-1289Hgcsvzve [Moles/Vol]105 mmol/M29-445DwpvreyltOhio State East Hospital Color Auto (U)Ordered By: Romel Davis on 01-79-7184Cnywh (U)Dark yellow AbnormalYellowOhio State East HospitalCreatinine [Mass/volume] in Serum or PlasmaOrdered By: Romel Davis on 94-01-0767Wjwpzllkfr [Mass/Vol]0.94 mg/dL0.70-1.30[facility] HospitalEosinophils Auto (Bld) [#/Vol] Ordered By: Romel Davis on 83-36-5173Kbcgwygacli (Bld) [#/Vol]0.1 10*3/uL 0.0-0.45[facility] HospitalEosinophils/100 WBC Auto (Bld)Ordered By: Romel Davis on 70-88-1062Dldgoqvawas/100 WBC (Bld)1.3 %.[facility] HospitalErythrocyte distribution width Auto (RBC) [Ratio]Ordered By: Romel Davis on 91-67-7290Wbpnnlgpqau distribution width (RBC) [Ratio]14.8 %12.0-14.8[facility] HospitalErythrocyte sedimentation rate by Photometric methodOrdered By: Romel Davis on 76-79-6477CZZ Photometric method (Bld) [Velocity]29 mm/hrHigh0-19[facility] HospitalGlobulin Calc (S) [Mass/Vol]Ordered By: Romel Davis on 54-97-5848Sxtlcfuk (S) [Mass/Vol]2.3 g/dLOhio State East HospitalGlucose [Mass/volume] in Serum or Plasma Ordered By: Romel Davis on 82-10-7999Ttoemdq [Mass/Vol]124 mg/vMHdpr15-180 [facility] HospitalComment on above:ADA recommended reference rangeRandom Glucose Reference Range is dependent on time and content of last meal. Glucose of more than 200 mg/dL in a nonstressed, ambulatory subject supports the diagnosisof Diabetes Mellitus.Hematocrit Auto (Bld) [Volume fraction]Ordered By: Romel Davis on 25-10-0863Kqssguuvny (Bld) [Volume fraction]36.6 %Low38.8-50.0[facility] HospitalHemoglobin [Mass/volume] in BloodOrdered By: Romel Davis on 30-94-3929Yrbnrrqhef (Bld) [Mass/Vol]12.4 g/dLLow13.0-17.0[facility] HospitalKetones Auto test strip (U) [Mass/Vol]Ordered By: Romel Davis on 08-12-0557Xquqfeh (U) [Mass/Vol]TraceHighNegativeOhio State East HospitalLaboratory - UrinalysisOrdered By: Romel Davis on 26-63-9513Kmgmksp casts LM Ql (Urine sed)0-8 [LPF]0-8[facility] HospitalLeukocytes [#/volume] corrected for nucleated erythrocytes in Blood by Automated counOrdered By: Romel Davis on 48-89-6154KWM corrected for nucl RBC Auto (Bld) [#/Vol]6.5 10*3/uL4.1-10.5 [facility] HospitalLymphocytes Auto (Bld) [#/Vol]Ordered By: Romel Davis on 43-24-2471Yjnbrejvbcs (Bld) [#/Vol]0.8 10*3/uLLow1.00-4.8 [facility] HospitalLymphocytes/100 WBC Auto (Bld)Ordered By: Romel Davis on 07-83-3245Xtynohnnmhb/100 WBC (Bld)12.1 %.[facility] Auto (RBC) [Entitic mass]Ordered By: Romel Davis on 22-44-8663SLN (RBC) [Entitic mass]30.0 pg27.5-35.2FTrinity Health System West CampusHC Auto (RBC) [Mass/Vol]Ordered By: Romel Davis on 09-61-9235EDGZ (RBC) [Mass/Vol]33.9 g/dL32.5-35.6FKindred Hospital DaytonMCV Auto (RBC) [Entitic vol]Ordered By: Romel Davis on 48-10-5594JOO (RBC) [Entitic vol]88.3 fL83.5-101[facility] HospitalMonocytes Auto (Bld) [#/Vol] Ordered By: Romel Mendezrow on 85-45-7600Ucbwbcmlt (Bld) [#/Vol]0.7 10*3/uL 0.0-0.8[facility] HospitalMonocytes/100 WBC Auto (Bld)Ordered By: Romel Ryan on 12-55-7515Phqrumqgr/100 WBC (Bld)10.7 %.[facility] HospitalNeutrophils Auto (Bld) [#/Vol]Ordered By: Romel Mendezrow on 19-49-9140Fifupfudezn (Bld) [#/Vol]4.9 10*3/uL1.8-7.7FKindred Hospital DaytonNeutrophils/100 WBC Auto (Bld)Ordered By: Romel Davis on 03-13-2024 Neutrophils/100 WBC (Bld)75.4 %.[facility] HospitalNitrite Test strip Ql (U)Ordered By: Romel Mendezrow on 75-80-7706Otddmpf Ql (U)Negative NegativeOhio State East HospitalNo Panel InformationOrdered By: Romel Mendezrow on 20-34-2365Dffjdwtej GFR (CKD-EPI)> 60.0 mL/MinOhio State East HospitalPharmacy Creatinine Clearance (ChemN/[facility] HospitalTotal Complement (CH50)>60 U/mL>41[facility] HospitalComment on above:Age Male Female 1 - 30 days Not Estab. Not Estab. 31 days - 6 months >32 >20 7 months - 17 years >39 >39 >17 years >41 >41 NOTE: The adult ( >17 years ) reference intervalrange is used to flag abnormals on this report. If the patient is 17 years old or younger, use the table above to determine out of range values.Performed at: [employer] [id number] Director: Richy Ardon PhD, Phone: [phone] erythrocytes [Presence] in Blood by Automated countOrdered By: Romel Davis on 07-48-0022Umnhlfzfq RBC Auto Ql (Bld)0.1 /100{WBC}0-0.5FKindred Hospital DaytonPlatelet mean volume Auto (Bld) [Entitic vol]Ordered By: Romel Davis on 34-15-4545Tdpfztsh mean volume (Bld) [Entitic vol]8.0 fL6.6-10.1 [facility] HospitalPlatelets Auto (Bld) [#/Vol]Ordered By: Romel Davis on 73-33-0775Fwjammaac (Bld) [#/Vol]258 10*3/dK365-747VloqvwbjtOhio State East HospitalPotassium [Moles/volume] in Serum or PlasmaOrdered By: Romel Davis on 89-62-0105Tzoobdufn [Moles/Vol]4.3 mmol/L3.5-5.1FKindred Hospital DaytonProtein Auto test strip (U) [Mass/Vol]Ordered By: Romel Davis on 12-32-4385Sasbehk (U) [Mass/Vol]NegativeNegativeOhio State East HospitalProtein [Mass/volume] in Serum or PlasmaOrdered By: Romel Davis on 48-63-7235Bginvxp [Mass/Vol]6.0 g/dLLow6.4-8.9[facility] RBC Auto (Bld) [#/Vol]Ordered By: Romel Davis on 30-24-6293LWM (Bld) [#/Vol] 4.14 10*6/uL3.90-5.60[facility] Hospitalerum or plasma albumin/globulin mass ratioOrdered By: Romel Davis on 03-13-2024 Albumin/Globulin [Mass ratio]1.6 {ratio}[facility] Hospitalerum or plasma anion gap determinationOrdered By: Romel Davis on 34-01-0159Vaacq gap [Moles/Vol]11.3 mmol/L6.0-15.0[facility] Hospitalerum or plasma complement C3 measurement (mass/volume)Ordered By: Romel Davis on 08-23-0015Jktbedgowz C3 [Mass/Vol]153 mg/nG26-949KgwkfbkvfOhio State East HospitalComment on above:Performed at: - [facility] [address] [id number] Director: Richy Ardon PhD, Phone: [phone] or plasma complement C4 measurement (mass/volume)Ordered By: Romel Davis on 01-72-2267Pldhvdfnez C4 [Mass/Vol]24 mg/dL31-83GkgklgbnsOhio State East Hospital Sodium [Moles/volume] in Serum or PlasmaOrdered By: Romel Davis on 03-13-2024 Sodium [Moles/Vol]137 mmol/L406-735CvitxybpxOhioHealth Grady Memorial Hospitalpecific gravity Auto test strip (U) [Rel density]Ordered By: Romel Davis on 87-85-7546Rmnopixs gravity (U) [Rel density]1.0241.001-1.030[facility] Hospitalquamous epithelial cells detection in urine sediment by light microscopyOrdered By: Romel Davis on 43-83-3021Yunkolvrqe cells.squamous LM Ql (Urine sed)None seen [HPF]0-2FKindred Hospital DaytonUrea nitrogen [Mass/volume] in Serum or PlasmaOrdered By: Romel Davis on 74-22-3845Zusa nitrogen [Mass/Vol]26 mg/dLHigh7-25[facility] HospitalUrine bacteria detection by automated methodOrdered By: Romel Davis on 03-13-2024 Bacteria Auto Ql (U)None seenNone SeenOhio State East HospitalUrine clarity by refractometry automatedOrdered By: Romel Davis on 03-13-2024 Clarity Refractometry automated (U)ClearClearFKindred Hospital Dayton Urine glucose measurement by automated test strip (mass/volume)Ordered By: Romel Davis on 29-69-1189Tbmfljb Auto test strip (U) [Mass/Vol]Normal mg/dL NormalOhio State East HospitalUrine hemoglobin detection by automated test stripOrdered By: Romel Davis on 83-59-4944Kdghcrgive Auto test strip Ql (U)NegativeNegativeOhio State East HospitalUrine leukocyte esterase detection by automated test stripOrdered By: Romel Davis on 03-13-2024 Leukocyte esterase Auto test strip Ql (U)1+HighNegativeOhio State East HospitalUrobilinogen Auto test strip (U) [Mass/Vol]Ordered By: Romel Mendezrow on 08-91-6865Uvmcmsgvaqpq (U) [Mass/Vol]Normal mg/dLNormalOhio State East HospitalWBC Auto (Bld) [#/Vol]Ordered By: Romel Mendezrow on 13-34-8234VRB (Bld) [#/Vol]6.5 10*3/uL4.1-10.5FKindred Hospital Dayton pH Auto test strip (U)Ordered By: Romel Davis on 67-79-0456xW (U)7.0 [pH] 5.0-9.0[facility] HospitalCarbon dioxide, total [Moles/volume] in Serum or PlasmaOrdered By: Zac Muniz on 59-62-7246DZ4 [Moles/Vol]22.4 mmol/L21.0-31.0[facility] HospitalChloride [Moles/volume] in Serum or PlasmaOrdered By: Zac Muniz on 65-83-0911Hbkanuxa [Moles/Vol]104 mmol/L 98-107[facility] HospitalPotassium [Moles/volume] in Serum or PlasmaOrdered By: Zac Muniz on 98-56-0978Bcjogftth [Moles/Vol]4.4 mmol/L 3.5-5.1FPaulding County Hospitalerum or plasma anion gap determination Ordered By: Zac Muniz on 26-91-8707Fnzwk gap [Moles/Vol]13.0 mmol/L6.0-15.0 [facility] Hospitalodium [Moles/volume] in Serum or PlasmaOrdered By: Zac Muniz on 46-18-2628Hxllmt [Moles/Vol]135 mmol/S316-522HziixgykcOhio State East HospitalAlanine aminotransferase [Enzymatic activity/volume] in Serum or PlasmaOrdered By: Edenilson Reinoso on 34-48-6329LVZ [Catalytic activity/Vol]43 U/L7-52[facility] HospitalAlbumin [Mass/volume] in Serum or Plasma by Bromocresol green (BCG) dye binding methoOrdered By: Edenilson Reinoso on 15-49-5916Hzuplsa BCG dye [Mass/Vol]4.6 g/dL3.5-5.7FKindred Hospital DaytonAlkaline phosphatase [Enzymatic activity/volume] in Serum or PlasmaOrdered By: Edenilson Reinoso on 64-43-8217TSA [Catalytic activity/Vol]78 U/L 34-104[facility] HospitalAspartate aminotransferase [Enzymatic activity/volume] in Serum or PlasmaOrdered By: Edenilson Reinoso on 82-85-9839KXR [Catalytic activity/Vol]28 U/O14-24BskzexilcOhio State East HospitalAutomated erythrocytes count in urine sediment (number/area)Ordered By: Edenilson Reinoso on 89-91-3045IQQ Auto (Urine sed) [#/Area]3-4 [HPF]0-4FKindred Hospital DaytonAutomated leukocytes count in urine sediment (number/area)Ordered By: Eednilson Reinoso on 14-41-3828QIL Auto (Urine sed) [#/Area]3-4 [HPF]0-4FKindred Hospital DaytonBasophils Auto (Bld) [#/Vol]Ordered By: Edenilson Reinoso on 84-47-7822Waexmehqs (Bld) [#/Vol]0.0 10*3/uL0.0-0.2FKindred Hospital DaytonBasophils/100 WBC Auto (Bld)Ordered By: Edenilson Reinoso on 01-03-2024 Basophils/100 WBC (Bld)0.2 %.[facility] HospitalBilirubin Test strip Ql (U)Ordered By: Edenilson Reinoso on 76-25-3842Stmcbxdnh Ql (U)Negative NegativeOhio State East HospitalBilirubin.total [Mass/volume] in Serum or PlasmaOrdered By: Edenilson Reinoso on 54-93-1948Kyznjtvmd [Mass/Vol]0.6 mg/dL 0.3-1.0[facility] HospitalCalcium [Mass/volume] in Serum or Plasma Ordered By: Edenilson Reinoso on 41-84-0571Quknyxc [Mass/Vol]9.3 mg/dL8.6-10.3 [facility] HospitalCarbon dioxide, total [Moles/volume] in Serum or PlasmaOrdered By: Edenilson Reinoso on 40-88-5551XV2 [Moles/Vol]20.7 mmol/L 21.0-31.0[facility] HospitalChloride [Moles/volume] in Serum or PlasmaOrdered By: Edenilson Reinoso on 83-55-1208Giutkmbj [Moles/Vol]106 mmol/L 98-107[facility] HospitalColor Auto (U)Ordered By: Edenilson Reinoso on 94-47-3865Omkkl (U)Dark yellowYellowOhio State East Hospital Creatinine [Mass/volume] in Serum or PlasmaOrdered By: Edenilson Reinoso on 18-80-2765Ojnlujmduk [Mass/Vol]1.14 mg/dL0.70-1.30[facility] HospitalEosinophils Auto (Bld) [#/Vol]Ordered By: Edenilson Reinoso on 01-03-2024 Eosinophils (Bld) [#/Vol]0.0 10*3/uL0.0-0.45[facility] Eosinophils/100 WBC Auto (Bld)Ordered By: Edenilson Reinoso on 01-03-2024 Eosinophils/100 WBC (Bld)0.3 %.[facility] HospitalErythrocyte distribution width Auto (RBC) [Ratio]Ordered By: Edenilson Reinoso on 01-03-2024 Erythrocyte distribution width (RBC) [Ratio]14.7 %12.0-14.8[facility] HospitalGlobulin Calc (S) [Mass/Vol]Ordered By: Edenilson Reinoso on 42-95-5094Orbjsyuc (S) [Mass/Vol]2.4 g/dLOhio State East Hospital Glucose [Mass/volume] in Serum or PlasmaOrdered By: Edenilson Reinoso on 01-03-2024 Glucose [Mass/Vol]148 mg/kI14-533UkbmupqnkOhio State East HospitalComment on above:ADA recommended reference rangeRandom Glucose Reference Range is dependent on time and content of last meal. Glucose of more than 200 mg/dL in a nonstressed, ambulatory subject supports the diagnosisof Diabetes Mellitus. Hematocrit Auto (Bld) [Volume fraction]Ordered By: Edenilson Reinoso on 01-03-2024 Hematocrit (Bld) [Volume fraction]49.3 %38.8-50.0[facility] HospitalHemoglobin [Mass/volume] in BloodOrdered By: Edenilson Reinoso on 01-03-2024 Hemoglobin (Bld) [Mass/Vol]16.6 g/dL13.0-17.0[facility] Ketones Auto test strip (U) [Mass/Vol]Ordered By: Edenilson Reinoso on 01-03-2024 Ketones (U) [Mass/Vol]TraceNegativeOhio State East HospitalLaboratory - UrinalysisOrdered By: Edenilson Reinoso on 89-08-1020Etjsrzq casts LM Ql (Urine sed)0-8 [LPF]0-8[facility] HospitalLeukocytes [#/volume] corrected for nucleated erythrocytes in Blood by Automated counOrdered By: Edenilson Reinoso on 78-99-3654CAK corrected for nucl RBC Auto (Bld) [#/Vol]16.9 10*3/uL4.1-10.5 [facility] HospitalLymphocytes Auto (Bld) [#/Vol]Ordered By: Edenilson Reinoso on 37-96-2973Uxslrqahjnx (Bld) [#/Vol]0.8 10*3/uL1.00-4.8[facility] HospitalLymphocytes/100 WBC Auto (Bld)Ordered By: Edenilson Reinoso on 46-49-1096Micmyxnsjmj/100 WBC (Bld)4.8 %.[facility]H Auto (RBC) [Entitic mass]Ordered By: Edenilson Reinoso on 71-69-1322OHN (RBC) [Entitic mass]30.1 pg27.5-35.2FTrinity Health System West CampusHC Auto (RBC) [Mass/Vol]Ordered By: Edenilson Reinoso on 88-58-1803AYCZ (RBC) [Mass/Vol]33.7 g/dL 32.5-35.6FKindred Hospital DaytonMCV Auto (RBC) [Entitic vol]Ordered By: Edenilson Reinoso on 04-18-5707ZBG (RBC) [Entitic vol]89.3 fL83.5-101[facility] HospitalMonocyte distribution width [Entitic volume] in Blood by AutomatedOrdered By: Edenilson Reinoso on 73-30-7567Gkxjyoar distribution width Auto (Bld) [Entitic vol]20.70 %0.00-20.00[facility] HospitalComment on above:For adults in ED, MDW > 20.0 may be associated with a higher risk of sepsis during the first 12 hrs of hospital admissionMonocytes Auto (Bld) [#/Vol] Ordered By: Edenilson Reinoso on 90-82-0137Jxfthhxqv (Bld) [#/Vol]1.1 10*3/uL0.0-0.8 [facility] HospitalMonocytes/100 WBC Auto (Bld)Ordered By: Edenilson Reinoso on 91-65-6452Nihecfzcj/100 WBC (Bld)6.7 %.[facility] HospitalNeutrophils Auto (Bld) [#/Vol]Ordered By: Edenilson Reinoso on 01-03-2024 Neutrophils (Bld) [#/Vol]14.9 10*3/uL1.8-7.7FKindred Hospital Dayton Neutrophils/100 WBC Auto (Bld)Ordered By: Edenilson Reinoso on 01-03-2024 Neutrophils/100 WBC (Bld)88.0 %.[facility] HospitalNitrite Test strip Ql (U)Ordered By: Edenilson Reinoso on 81-71-5917Wtrycqt Ql (U)Negative NegativeOhio State East HospitalNo Panel InformationOrdered By: Edenilson Reinoso on 73-97-4403Xhisrdeab GFR (CKD-EPI)> 60.0 mL/MinOhio State East HospitalPharmacy Creatinine Clearance (Chem73.17[facility] HospitalNucleated erythrocytes [Presence] in Blood by Automated countOrdered By: Edenilson Reinoso on 47-90-9961Xoqlwnkjy RBC Auto Ql (Bld)0.3 /100{WBC}0-0.5 [facility] HospitalPlatelet mean volume Auto (Bld) [Entitic vol] Ordered By: Edenilson Reinoso on 31-86-0920Ztvbggjt mean volume (Bld) [Entitic vol] 8.5 fL6.6-10.1FKindred Hospital DaytonPlatelets Auto (Bld) [#/Vol] Ordered By: Edenilson Reinoso on 70-74-9009Znwtgocqu (Bld) [#/Vol]229 10*3/oU095-750 [facility] HospitalPotassium [Moles/volume] in Serum or Plasma Ordered By: Edenilson Reinoso on 25-01-7339Lmylcvlkf [Moles/Vol]4.4 mmol/L3.5-5.1 [facility] HospitalProtein Auto test strip (U) [Mass/Vol]Ordered By: Edenilson Reinoso on 43-53-7030Vedrycq (U) [Mass/Vol]Trace mg/dLNegative [facility] HospitalProtein [Mass/volume] in Serum or PlasmaOrdered By: Edenilson Reinoso on 99-61-1381Xoulqqs [Mass/Vol]7.0 g/dL6.4-8.9[facility] HospitalRBC Auto (Bld) [#/Vol]Ordered By: Edenilson Reinoso on 38-58-1881WAO (Bld) [#/Vol]5.52 10*6/uL3.90-5.60[facility] Hospitalerum or plasma albumin/globulin mass ratioOrdered By: Edenilson Reinoso on 86-05-5248Gnzgwni/Globulin [Mass ratio]1.9 {ratio}[facility] Hospitalerum or plasma anion gap determinationOrdered By: Edenilson Reinoso on 30-96-2371Mmvvr gap [Moles/Vol]15.7 mmol/L6.0-15.0[facility] Hospitalodium [Moles/volume] in Serum or PlasmaOrdered By: Edenilson Reinoso on 79-69-3896Zhrjrq [Moles/Vol]138 mmol/V811-639MnwstavunOhio State East Hospital Specific gravity Auto test strip (U) [Rel density]Ordered By: Edenilson Reinoso on 91-13-5589Xxnklyqj gravity (U) [Rel density]1.0341.001-1.030[facility] Hospitalquamous epithelial cells detection in urine sediment by light microscopyOrdered By: Edenilson Reinoso 46-89-4572Kibiduwfsy cells.squamous LM Ql (Urine sed)0-1 [HPF]0-2FKindred Hospital DaytonTroponin I.cardiac [Mass/volume] in Serum or Plasma by Detection limit <= 0.01 ng/Ordered By: Edenilson Reinoso on 67-28-0400Tnmtsqib I.cardiac DL <= 0.01 ng/mL [Mass/Vol]7.2 pg/mL0.0-20.0[facility] HospitalUrea nitrogen [Mass/volume] in Serum or PlasmaOrdered By: Edenilson Reinoso 21-52-0895Nwdu nitrogen [Mass/Vol]21 mg/dL7-25[facility] HospitalUrine bacteria detection by automated methodOrdered By: Edenilson Reinoso 08-67-4103Tsojflum Auto Ql (U)None seenNone SeenOhio State East HospitalUrine clarity by refractometry automated Ordered By: Edenilson Reinoso on 31-33-0813Utpczdi Refractometry automated (U)Cloudy ClearOhio State East HospitalUrine glucose measurement by automated test strip (mass/volume)Ordered By: Edenilson Reinoso on 11-33-4588Zsndgfz Auto test strip (U) [Mass/Vol]Normal mg/dLNormOhioHealth Riverside Methodist HospitalUrine hemoglobin detection by automated test stripOrdered By: Edenilson Reinoso on 75-76-3454Evnfbtvmsx Auto test strip Ql (U)NegativeNegativeOhio State East HospitalUrine leukocyte esterase detection by automated test stripOrdered By: Edenilson Reinoso on 10-54-4815Ibwysjdjv esterase Auto test strip Ql (U)Negative NegativeOhio State East HospitalUrobilinogen Auto test strip (U) [Mass/Vol]Ordered By: Edenilson Reinoso on 70-76-5927Bhkicgupexsn (U) [Mass/Vol] Normal mg/dLNoBlanchard Valley Health System Bluffton HospitalWBC Auto (Bld) [#/Vol]Ordered By: Edenilson Reinoso on 11-01-9320ONA (Bld) [#/Vol]16.9 10*3/uL4.1-10.5FKindred Hospital DaytonpH Auto test strip (U)Ordered By: Edenilson Reinoso on 63-64-1232eF (U)5.0 [pH]5.0-9.0[facility] HospitalCOMPREHENSIVE METABOLIC PANELon 06-10-0646Yaumvra [Mass/Vol]4.5 g/dLNormal3.2-5.3Pro[facility] HospitalComment on above:Performed By: #### REINA, 92094-4 #### [facility] ([id number]) [address], [address] [place], [place] [address]HHF [Catalytic activity/Vol]83 U/LEjissq74-035IaePxpmwp [facility] HospitalComment on above:Performed By: #### CMP, 67596-7 #### [facility] ([id number]) [address], [address] [place], [place] [address]EUM [Catalytic activity/Vol]25 U/LNormal0-40Pro[facility]ica [facility] HospitalComment on above:Performed By: #### REINA, 99767-4 #### [facility] ([id number]) [address], [address] [place], [place] [address]Dyyda gap [Moles/Vol]11 mmol/LNormal5-15Pro[facility] HospitalComment on above:Performed By: #### REINA, 72072-3 #### [facility] ([id number]) [address], [address] [place], [place] [address]WMS [Catalytic activity/Vol]18 U/LNormal0-41ProMedica [facility] HospitalComment on above:Performed By: #### REINA, 12279-0 #### [facility] ([id number]) [address], [address] [place], [place] [address]Nqqriectc [Mass/Vol]0.8 mg/dLNormal0.3-1.2ProMedica Burton HospitalComment on above:Performed By: #### REINA, 45625-9 #### [facility] ([id number]) [address], [address] [place], [place] [address]Dlgkulo [Mass/Vol]9.1 mg/dLNormal8.5-10.5ProMedica Burton HospitalComment on above:Performed By: #### REINA, 65664-2 #### [facility] ([id number]) [address], [address] [place], [place] [address]Rminmvra [Moles/Vol]105 mmol/NSlodpm85-606FywEuxtjy Burton HospitalComment on above:Performed By: #### REINA, 77722-3 #### [facility] ([id number]) [address], [address] [place], [place] [address]FV8 [Moles/Vol]23 mmol/AEsbeop89-70PyfUjfvfd [facility] Comment on above:Performed By: #### REINA, 14524-8 #### [facility] ([id number]) [address], [address] [place], [place] [address]Jlmpepccwp [Mass/Vol]0.89 mg/dLNormal0.60-1.30ProFirelands Regional Medical Center South CampusComment on above:Result Comment: METHOD TRACEABLE TO IDMS STANDARD Performed By: #### REINA, 75066-1 #### [facility] ([id number]) [address] [place], [place] [address]jHIU (CKD-EPI) NON-RACE DEPENDENT>90Normal>59ProFirelands Regional Medical Center South CampusComment on above:Result Comment: Reported eGFR is based on the CKD-EPI 2020 equation that does not use a race coefficient.Performed By: #### REINA, 72415-1 #### [facility] ([id number]) [address], [address] [place], [place] [address]Gosmaqr [Mass/Vol]96 mg/tSIxnhhx67-87PtqChbizi [facility] Comment on above:Performed By: #### REINA, 86048-0 #### [facility] ([id number]) [address], [address] [place], [place] [address]Jyqmfpzuw [Moles/Vol]4.0 mmol/LNormal3.5-5.0ProFirelands Regional Medical Center South CampusComment on above:Performed By: #### REINA, 96017-8 #### [facility] ([id number]) [address], [address] [place], [place] [address]Tcsyiqn [Mass/Vol]7.1 g/dLNormal6.0-8.0[facility] Comment on above:Performed By: #### REINA, 08000-2 #### [facility] ([id number]) [address], [address] [place], [place] [address]Steayi [Moles/Vol]139 mmol/OCoqerg480-008RjuZyirrb [facility] HospitalComment on above:Performed By: #### CMP, 98810-4 #### [facility] ([id number]) [address], [address] [place], [place] [address]Ixhj nitrogen [Mass/Vol]25 mg/dLNormal5-27[facility] Center – JacksonComment on above:Performed By: #### REINA, 47888-6 #### [facility] ([id number]) [address], [address] [place], [place] [address]Lrrpyisupondd metabolic panelon 69-20-8776Pddmuir [Mass/Vol]4.5 g/dL3.2 - 5.3 g/dLProUab Medical West Health SystemALP [Catalytic activity/Vol]83 U/L39 - 130 U/[facility] Health SystemALT No additional P-5'-P [Catalytic activity/Vol] 25 U/L0 - 40 U/[facility] Health SystemAnion gap [Moles/Vol]11 mmol/L5 - 15 mmol/[facility] Health SystemAST [Catalytic activity/Vol]18 U/L0 - 41 U/L ProMMinneapolis VA [facility] Care System SystemBilirubin [Mass/Vol]0.8 mg/dL0.3 - 1.2 mg/dLProUniversity Hospitals [facility] SystemCalcium [Mass/Vol]9.1 mg/dL8.5 - 10.5 mg/dLSouthwest General Health Center System Chloride [Moles/Vol]105 mmol/L98 - 109 mmol/[facility] Health SystemCO2 [Moles/Vol]23 mmol/L22 - 32 mmol/[facility] SystemCreatinine [Mass/Vol] 0.89 mg/dL0.60 - 1.30 mg/dLTrumbull Memorial HospitalComment on above:METHOD TRACEABLE TO [facility] STANDARDeGFR (CKD-EPI)non-race dependent- [facility] Medical CenterComment on above: Reported eGFR is based on the CKD-EPI 2020 equation that does not use a race coefficient. Glucose [Mass/Vol]96 mg/dL65 - 99 mg/dLProUniversity Hospitals Tri[facility] Medical Center SystemPotassium [Moles/Vol]4.0 mmol/L3.5 - 5.0 mmol/LPrEating Recovery Center a [facility] for [facility] and [facility]olescents Health SystemProtein [Mass/Vol] 7.1 g/dL6.0 - 8.0 g/dLNovant Health Mint Hill Medical Centerodium [Moles/Vol]139 mmol/L134 - 146 mmol/LPrHolzer Medical Center – JacksonUrea nitrogen [Mass/Vol]25 mg/dL5 - 27 mg/dL [facility] Memorial HospitalLipid 1996 panelon 79-32-2136Lrgmpgpuhpy [Mass/Vol]124 mg/dTFzu582 - 200 mg/dLTrumbull Memorial HospitalCholesterol in HDL [Mass/Vol]46 mg/dL39 - PINF mg/dLTrumbull Memorial HospitalComment on above: HDL <40 mg/dL - High Risk HDL > or = 40mg/dL- Desirable HDL >60 mg/dL - Negative Risk Cholesterol in LDL [Mass/Vol]57 mg/dLNINF - 130 mg/dLTrumbull Memorial Hospital Comment on above: LDL <100 mg/dL - Desirable LDL >160 mg/dL - High Risk Cholesterol in VLDL [Mass/Vol]21 mg/dL0 - 30 mg/dLTrumbull Memorial Hospital Cholesterol.total/Cholesterol in HDL [Mass ratio]2.7 {ratio}1.0 - 5.0Tr[facility]ull Memorial HospitalInterpretation and review of laboratory resultsAbnormalTrumbull Memorial HospitalTriglyceride [Mass/Vol]103 mg/dL27 - 150 mg/dLTrumbull Memorial HospitalCholesterol [Mass/Vol]124 mg/jUZjt387-506GkhWqpaqzHolzer Medical Center – JacksonComment on above:Performed By: #### [facility], 77690-6 #### [facility] ([id number]) [address], [address] [place], [place] [address]Iigdwbgbicf in HDL [Mass/Vol]46 mg/dLNormal>39ProFirelands Regional Medical Center South CampusComment on above:Result Comment: HDL <40 mg/dL - High Risk HDL > or = 40mg/dL- Desirable HDL >60 mg/dL - Negative Risk Performed By: #### REINA, 37056-2 #### [facility] ([id number]) [address] [place], [place] [address]Hbkafmjakjb in LDL [Mass/Vol]57 mg/dLNormal<130ProMiami Valley Hospital HospitalComment on above:Result Comment: LDL <100 mg/dL - Desirable LDL >160 mg/dL - High Risk Performed By: #### REINA, 71607-2 #### [facility] ([id number]) [address], [address] [place], [place] [address]Rqmooetjxkj in VLDL [Mass/Vol]21 mg/dLNormal0-30ProMiami Valley Hospital HospitalComment on above:Performed By: #### REINA, 85313-6 #### [facility] ([id number]) [address], [address] [place], [place] [address]KKHAFBHUXUG:HDL2.0Yrkuqj1.0-5.0ProMiami Valley Hospital HospitalComment on above:Performed By: #### REINA, 20265-5 #### [facility] ([id number]) [address], [address] [place], [place] [address]Mtcnohyvlnmb [Mass/Vol]103 mg/uWFlaypo16-052BgxHocylg [facility] HospitalComment on above:Performed By: #### REINA, 76438-8 #### [facility] ([id number]) [address], [address] [place], [place] [address]Qx Panel Informationon 48-59-6383ZzeJxvxvj Health SystemAlanine aminotransferase [Enzymatic activity/volume] in Serum or PlasmaOrdered By: Romel Davis on 86-07-7051YHZ [Catalytic activity/Vol]31 U/L7-52Ohio [facility] East HospitalAlbumin [Mass/volume] in Serum or Plasma by Bromocresol green (BCG) dye binding methoOrdered By: Romel Davis on 51-48-4517Ofkfise BCG dye [Mass/Vol]4.3 g/dL3.5-5.7FKindred Hospital DaytonAlkaline phosphatase [Enzymatic activity/volume] in Serum or PlasmaOrdered By: Romel Davis on 86-24-3818BBL [Catalytic activity/Vol]80 U/R21-233AwxearuumOhio State East HospitalAspartate aminotransferase [Enzymatic activity/volume] in Serum or PlasmaOrdered By: Romel Davis on 22-80-8263DGR [Catalytic activity/Vol]19 U/L 13-39[facility] HospitalAutomated erythrocytes count in urine sediment (number/area)Ordered By: Romel Davis on 83-60-4945IBY Auto (Urine sed) [#/Area]1-2 [HPF]0-4FKindred Hospital DaytonAutomated leukocytes count in urine sediment (number/area)Ordered By: Romel Davis on 63-03-2285QFV Auto (Urine sed) [#/Area]0-1 [HPF]0-4FKindred Hospital DaytonBasophils Auto (Bld) [#/Vol]Ordered By: Romel Davis on 79-61-5574Hjtrpudhv (Bld) [#/Vol]0.0 10*3/uL0.0-0.2FKindred Hospital DaytonBasophils/100 WBC Auto (Bld)Ordered By: Romel Davis on 15-56-2382Lcxweljyw/100 WBC (Bld)0.5 %. [facility] HospitalBilirubin Auto test strip Ql (U)Ordered By: Romel Davis on 30-44-2588Uwewmeqay Ql (U)NegativeNegativeOhio State East HospitalBilirubin.total [Mass/volume] in Serum or PlasmaOrdered By: Romel Davis on 53-52-7364Bbrmyieze [Mass/Vol]0.6 mg/dL0.3-1.0[facility] HospitalCalcium [Mass/volume] in Serum or PlasmaOrdered By: Romel Davis on 03-44-3517Hjqdxjz [Mass/Vol]9.4 mg/dL8.6-10.3FKindred Hospital DaytonCarbon dioxide, total [Moles/volume] in Serum or Plasma Ordered By: Romel Davis on 29-62-4344OR2 [Moles/Vol]25.7 mmol/L21.0-31.0 [facility] HospitalChloride [Moles/volume] in Serum or Plasma Ordered By: Romel Davis on 59-82-0329Wjnroyeq [Moles/Vol]105 mmol/L98-107 [facility] HospitalCreatinine [Mass/volume] in Serum or Plasma Ordered By: Romel Davis on 85-58-0766Crfpyhdyku [Mass/Vol]1.00 mg/dL0.70-1.30 [facility] HospitalEosinophils Auto (Bld) [#/Vol]Ordered By: Romel Davis on 74-24-3983Idabbphvnke (Bld) [#/Vol]0.1 10*3/uL0.0-0.45 [facility] HospitalEosinophils/100 WBC Auto (Bld)Ordered By: Romel Davis on 81-96-8112Rwhsrjcbfta/100 WBC (Bld)1.2 %.[facility] HospitalErythrocyte distribution width Auto (RBC) [Ratio]Ordered By: Romel Davis on 28-15-2106Vhrxmhdcpxr distribution width (RBC) [Ratio]14.5 % 12.0-14.8[facility] HospitalErythrocyte sedimentation rate by Photometric methodOrdered By: Romel Davis on 62-25-3815DSC Photometric method (Bld) [Velocity]5 mm/hr0-19[facility] HospitalGlobulin Calc (S) [Mass/Vol]Ordered By: Romel Davis on 59-16-9433Ofajawyr (S) [Mass/Vol]2.0 g/dLOhio State East HospitalGlucose [Mass/volume] in Serum or Plasma Ordered By: Romel Davis on 87-00-7517Slqcfju [Mass/Vol]88 mg/dS90-190 [facility] HospitalComment on above:ADA recommended reference rangeRandom Glucose Reference Range is dependent on time and content of last meal. Glucose of more than 200 mg/dL in a nonstressed, ambulatory subject supports the diagnosisof Diabetes Mellitus.Hematocrit Auto (Bld) [Volume fraction]Ordered By: Romel Davis on 34-82-2199Nxtdibeunr (Bld) [Volume fraction]46.1 %38.8-50.0[facility] HospitalHemoglobin [Mass/volume] in BloodOrdered By: Romel Davis on 20-83-2025Rthvxbfkec (Bld) [Mass/Vol]15.9 g/dL13.0-17.0[facility] HospitalKetones Auto test strip (U) [Mass/Vol]Ordered By: Romel Davis on 23-15-0685Tseitch (U) [Mass/Vol]NegativeNegativeOhio State East HospitalLaboratory - UrinalysisOrdered By: Romel Davis on 82-52-6233Fzbeajs casts LM Ql (Urine sed)0-8 [LPF]0-8[facility] HospitalLeukocytes [#/volume] corrected for nucleated erythrocytes in Blood by Automated counOrdered By: Romel Davis on 87-35-8982RRE corrected for nucl RBC Auto (Bld) [#/Vol]6.4 10*3/uL4.1-10.5 [facility] HospitalLymphocytes Auto (Bld) [#/Vol]Ordered By: Romel Davis on 56-39-7578Bxfczxnvean (Bld) [#/Vol]1.0 10*3/uL1.00-4.8 [facility] HospitalLymphocytes/100 WBC Auto (Bld)Ordered By: Romel Davis on 07-84-7715Qiueqgbcdtj/100 WBC (Bld)15.1 %.[facility] Auto (RBC) [Entitic mass]Ordered By: Romel Davis on 04-72-0887SNJ (RBC) [Entitic mass]30.7 pg27.5-35.2FSt. Rita's Hospital Auto (RBC) [Mass/Vol]Ordered By: Romel Mendezrow on 27-43-7833UDLE (RBC) [Mass/Vol]34.5 g/dL32.5-35.6FKindred Hospital DaytonMCV Auto (RBC) [Entitic vol]Ordered By: Romel Mendezrow on 91-21-8835WFU (RBC) [Entitic vol]89.0 fL83.5-101[facility] HospitalMonocytes Auto (Bld) [#/Vol] Ordered By: Romel Ryan on 50-75-6933Vwwhoamck (Bld) [#/Vol]0.9 10*3/uL 0.0-0.8[facility] HospitalMonocytes/100 WBC Auto (Bld)Ordered By: Romel Davis on 92-67-4071Hrpjhsfgo/100 WBC (Bld)14.0 %.[facility] HospitalNeutrophils Auto (Bld) [#/Vol]Ordered By: Romel Davis on 30-69-3611Phlnrfrbyvn (Bld) [#/Vol]4.4 10*3/uL1.8-7.7FKindred Hospital DaytonNeutrophils/100 WBC Auto (Bld)Ordered By: Romel Davis on 12-08-2023 Neutrophils/100 WBC (Bld)69.2 %.[facility] HospitalNo Panel InformationOrdered By: Romel Mendezrow on 07-60-7329Rvyyjvccp GFR (CKD-EPI)> 60.0 mL/MinOhio State East HospitalPharmacy Creatinine Clearance (ChemN/A [facility] HospitalTotal Complement (CH50)58 U/mL>41[facility] HospitalComment on above:Age Male Female 1 - 30 days Not Estab. Not Estab. 31 days - 6 months >32 >20 7 months - 17 years >39 >39 >17 years >41 >41 NOTE: The adult ( >17 years ) reference intervalrange is used to flag abnormals on this report. If the patient is 17 years old or younger, use the t able above to determine out of range values.Performed at: [facility] [id number] Director: Richy Ardon PhD, Phone: [phone] erythrocytes [Presence] in Blood by Automated count Ordered By: Romel Davis on 21-37-0149Zxzldpkds RBC Auto Ql (Bld)0.1 /100{WBC} 0-0.5FKindred Hospital DaytonPlatelet mean volume Auto (Bld) [Entitic vol]Ordered By: Romel Davis on 32-31-5869Xqxfrlgq mean volume (Bld) [Entitic vol]8.7 fL6.6-10.1FKindred Hospital DaytonPlatelets Auto (Bld) [#/Vol] Ordered By: Romel Davis on 15-23-6760Zrjoxxwxi (Bld) [#/Vol]203 10*3/uL 150-450[facility] HospitalPotassium [Moles/volume] in Serum or PlasmaOrdered By: Romel Davis on 06-61-3190Zahuxbfbx [Moles/Vol]4.3 mmol/L 3.5-5.1FKindred Hospital DaytonProtein Auto test strip (U) [Mass/Vol] Ordered By: Romel Davis on 36-57-7429Hauxcbv (U) [Mass/Vol]NegativeNegative [facility] HospitalProtein [Mass/volume] in Serum or PlasmaOrdered By: Romel Davis on 74-26-3019Nbcxrcm [Mass/Vol]6.3 g/dL6.4-8.9[facility] HospitalRBC Auto (Bld) [#/Vol]Ordered By: Romle Davis on 14-20-2305IVI (Bld) [#/Vol]5.18 10*6/uL3.90-5.60[facility] Hospitalerum or plasma albumin/globulin mass ratioOrdered By: Romel Davis on 71-25-9063Nvfrffa/Globulin [Mass ratio]2.2 {ratio}[facility] Hospitalerum or plasma anion gap determinationOrdered By: Romel Davis on 79-19-6309Gvgjp gap [Moles/Vol]10.6 mmol/L6.0-15.0[facility] Hospitalerum or plasma complement C3 measurement (mass/volume)Ordered By: Romel Davis on 36-22-1524Jprqknetgz C3 [Mass/Vol]122 mg/nR89-578PuyduswtwOhio State East HospitalComment on above:Performed at: - [facility] [id number] Director: Richy Ardon PhD, Phone: [phone] Serum or plasma complement C4 measurement (mass/volume)Ordered By: Romel Davis on 03-17-9602Puoliwarbz C4 [Mass/Vol]14 mg/hE50-81FnwsmqkodOhioHealth Grady Memorial Hospitalodium [Moles/volume] in Serum or PlasmaOrdered By: Romel Davis on 07-65-4232Tcndyh [Moles/Vol]137 mmol/P979-968YgupoydnmOhioHealth Grady Memorial Hospitalquamous epithelial cells detection in urine sediment by light microscopy Ordered By: Romel Davis on 16-68-8933Mzcelmdvkq cells.squamous LM Ql (Urine sed)None seen [HPF]0-2FKindred Hospital DaytonUrea nitrogen [Mass/volume] in Serum or PlasmaOrdered By: Romel Davis on 69-16-6955Mfkx nitrogen [Mass/Vol]27 mg/dL7-25[facility] HospitalUrine appearance Ordered By: Romel Davis on 61-92-9235Yjuivuqsdt (U)ClearCleProtestant Deaconess HospitalUrine bacteria detection by automated methodOrdered By: Romel Davis on 92-34-8733Uykkgqyx Auto Ql (U)None seenNone SeenOhio State East HospitalUrine colorOrdered By: Romel Davis on 80-16-0220Kqmud (U)YellowYellowOhio State East HospitalUrine glucose measurement by automated test strip (mass/volume)Ordered By: Romel Davis on 12-08-2023 Glucose Auto test strip (U) [Mass/Vol]Normal mg/dLNormalOhio State East HospitalUrine hemoglobin detection by automated test stripOrdered By: Romel Davis on 50-97-0413Petawpkwxw Auto test strip Ql (U)NegativeNegCleveland Clinic Fairview HospitalUrine leukocyte esterase detection by automated test stripOrdered By: Romel Davis on 49-61-7534Kgjubijcs esterase Auto test strip Ql (U)NegativeNegKettering Health Main CampusUrine nitrite detection by automated test stripOrdered By: Romel Davis on 15-96-1527Rdjnniy Auto test strip Ql (U)NegativeNegativeOhio State East Hospital Urobilinogen Auto test strip (U) [Mass/Vol]Ordered By: Romel Davis on 60-20-3330Pjfirczrgooe (U) [Mass/Vol]Normal mg/dLNormalOhio State East HospitalWBC Auto (Bld) [#/Vol]Ordered By: Romel Davis on 26-63-4120LQQ (Bld) [#/Vol]6.4 10*3/uL4.1-10.5FKindred Hospital DaytonpH Auto test strip (U)Ordered By: Romel Davis on 38-27-0360wN (U)1.025 [pH]1.001-1.030 [facility] HospitalpH (U)7.0 [pH]5.0-9.0[facility] HospitalCarbon dioxide, total [Moles/volume] in Serum or PlasmaOrdered By: Zac Muniz on 81-84-2796OU6 [Moles/Vol]23.8 mmol/L21.0-31.0[facility] HospitalChloride [Moles/volume] in Serum or PlasmaOrdered By: Zac Muniz on 16-41-1447Subhtcor [Moles/Vol]107 mmol/O52-598TpvtaqvweOhio State East HospitalPotassium [Moles/volume] in Serum or PlasmaOrdered By: Zac Muniz on 86-37-2203Bymzjnzzn [Moles/Vol]4.1 mmol/L3.5-5.1FPaulding County Hospitalerum or plasma anion gap determinationOrdered By: Zac Muniz on 54-03-9628Ffctg gap [Moles/Vol]12.3 mmol/L6.0-15.0[facility] Hospitalodium [Moles/volume] in Serum or PlasmaOrdered By: Zac Muniz on 47-39-7056Wyztny [Moles/Vol]139 mmol/N883-481UbqmljlyjOhio State East HospitalAlanine aminotransferase [Enzymatic activity/volume] in Serum or PlasmaOrdered By: Romel Davis on 40-38-5833EEH [Catalytic activity/Vol]29 U/L7-52[facility] HospitalAlbumin [Mass/volume] in Serum or Plasma by Bromocresol green (BCG) dye binding methoOrdered By: Romel Davis on 30-95-4906Fptpqkx BCG dye [Mass/Vol]4.2 g/dL3.5-5.7FKindred Hospital DaytonAlkaline phosphatase [Enzymatic activity/volume] in Serum or PlasmaOrdered By: Romel Davis on 95-36-3650GHC [Catalytic activity/Vol]83 U/L 34-104[facility] HospitalAspartate aminotransferase [Enzymatic activity/volume] in Serum or PlasmaOrdered By: Romel Davis on 16-73-9114FYE [Catalytic activity/Vol]19 U/H16-75QwnzccreoOhio State East HospitalAutomated erythrocytes count in urine sediment (number/area)Ordered By: Romel Davis on 86-52-7561HGC Auto (Urine sed) [#/Area]0-1 [HPF]0-4FKindred Hospital DaytonAutomated leukocytes count in urine sediment (number/area)Ordered By: Romel Davis on 78-78-9852ZVR Auto (Urine sed) [#/Area]0-1 [HPF]0-4FKindred Hospital DaytonBasophils Auto (Bld) [#/Vol]Ordered By: Romel Davis on 77-26-4623Qduzuwxln (Bld) [#/Vol]0.0 10*3/uL0.0-0.2FKindred Hospital DaytonBasophils/100 WBC Auto (Bld)Ordered By: Romel Davis on 09-05-2023 Basophils/100 WBC (Bld)0.6 %.[facility] HospitalBilirubin Test strip Ql (U)Ordered By: Romel Davis on 64-80-0828Qxgorpptj Ql (U)Negative NegativeOhio State East HospitalBilirubin.total [Mass/volume] in Serum or PlasmaOrdered By: Romel Davis on 17-72-6191Apkdaalqn [Mass/Vol]0.8 mg/dL 0.3-1.0[facility] HospitalCalcium [Mass/volume] in Serum or Plasma Ordered By: Romel Davis on 33-05-1850Sszhskq [Mass/Vol]9.2 mg/dL8.6-10.3 [facility] HospitalCarbon dioxide, total [Moles/volume] in Serum or PlasmaOrdered By: Romel Davis on 28-55-4957WF4 [Moles/Vol]27.9 mmol/L 21.0-31.0[facility] HospitalChloride [Moles/volume] in Serum or PlasmaOrdered By: Romel Davis on 54-08-3116Fuppxpjv [Moles/Vol]107 mmol/L 98-107[facility] HospitalColor Auto (U)Ordered By: Romel Davis on 19-84-5478Tayfo (U)YellowYellowOhio State East HospitalCreatinine [Mass/volume] in Serum or PlasmaOrdered By: Romel Davis on 09-05-2023 Creatinine [Mass/Vol]0.88 mg/dL0.70-1.30[facility] Eosinophils Auto (Bld) [#/Vol]Ordered By: Romel Davis on 09-05-2023 Eosinophils (Bld) [#/Vol]0.1 10*3/uL0.0-0.45[facility] Eosinophils/100 WBC Auto (Bld)Ordered By: Romel Davis on 09-05-2023 Eosinophils/100 WBC (Bld)0.9 %.[facility] HospitalErythrocyte distribution width Auto (RBC) [Ratio]Ordered By: Romel Davis on 09-05-2023 Erythrocyte distribution width (RBC) [Ratio]14.1 %12.0-14.8[facility] HospitalErythrocyte sedimentation rate by Photometric methodOrdered By: Romel Davis on 53-32-5056WJG Photometric method (Bld) [Velocity]3 mm/hr0-19 [facility] HospitalGlobulin Calc (S) [Mass/Vol]Ordered By: Romel Davis on 15-08-1026Oeqzrdoc (S) [Mass/Vol]1.9 g/dLOhio State East HospitalGlucose [Mass/volume] in Serum or PlasmaOrdered By: Romel Davis on 51-01-9074Wcvyrtb [Mass/Vol]75 mg/sA37-239KenzhgqpvOhio State East Hospital Comment on above:ADA recommended reference rangeRandom Glucose Reference Range is dependent on time and content of last meal. Glucose of more than 200 mg/dL in a nonstressed, ambulatory subject supports the diagnosisof Diabetes Mellitus. Hematocrit Auto (Bld) [Volume fraction]Ordered By: Romel Davis on 09-05-2023 Hematocrit (Bld) [Volume fraction]44.5 %38.8-50.0[facility] HospitalHemoglobin [Mass/volume] in BloodOrdered By: Romel Davis on 09-05-2023 Hemoglobin (Bld) [Mass/Vol]15.2 g/dL13.0-17.0[facility] Ketones Auto test strip (U) [Mass/Vol]Ordered By: Romel Davis on 09-05-2023 Ketones (U) [Mass/Vol]TraceNegativeOhio State East HospitalLaboratory - UrinalysisOrdered By: Romel Davis on [id number] casts LM Ql (Urine sed)None seen [LPF]0-8[facility] HospitalLeukocytes [#/volume] corrected for nucleated erythrocytes in Blood by Automated counOrdered By: Romel Davis on [id number] corrected for nucl RBC Auto (Bld) [#/Vol]5.9 10*3/uL4.1-10.5FKindred Hospital DaytonLymphocytes Auto (Bld) [#/Vol] Ordered By: Romel Davis on 08-83-9718Jspsrafzkfm (Bld) [#/Vol]1.1 10*3/uL 1.00-4.8[facility] HospitalLymphocytes/100 WBC Auto (Bld)Ordered By: Romel Davis on 15-07-1842Ierjbfvsslb/100 WBC (Bld)17.7 %.[facility] HospitalMCH Auto (RBC) [Entitic mass]Ordered By: Romel Davis on [id number] (RBC) [Entitic mass]30.7 pg27.5-35.2FKindred Hospital DaytonMCHC Auto (RBC) [Mass/Vol]Ordered By: Romel Davis on 20-15-5373HYPG (RBC) [Mass/Vol]34.2 g/dL32.5-35.6FKindred Hospital DaytonMCV Auto (RBC) [Entitic vol]Ordered By: Romel Davis on 95-81-0601VAD (RBC) [Entitic vol]89.9 fL83.5-101[facility] HospitalMonocytes Auto (Bld) [#/Vol] Ordered By: Romel Davis on 00-38-7638Qshczrtld (Bld) [#/Vol]0.6 10*3/uL 0.0-0.8[facility] HospitalMonocytes/100 WBC Auto (Bld)Ordered By: Romel Mendezrow on 95-71-5402Ucbsgxgbc/100 WBC (Bld)10.3 %.[facility] HospitalNeutrophils Auto (Bld) [#/Vol]Ordered By: Romel Mendezrow on 11-31-5276Qjmtcrlwrzm (Bld) [#/Vol]4.2 10*3/uL1.8-7.7FKindred Hospital DaytonNeutrophils/100 WBC Auto (Bld)Ordered By: Romel Ryan on 09-05-2023 Neutrophils/100 WBC (Bld)70.5 %.[facility] HospitalNitrite Test strip Ql (U)Ordered By: Romel Davis on 95-62-1994Lchqrfs Ql (U)Negative NegativeOhio State East HospitalNo Panel InformationOrdered By: Romel Davis on 18-14-5717Oamyxyeqi GFR (CKD-EPI)> 60.0 mL/MinOhio State East HospitalPharmacy Creatinine Clearance (ChemN/[facility] HospitalTotal Complement (CH50)57 U/mL>41[facility] HospitalComment on above:Age Male Female 1 - 30 days Not Estab. Not Estab. 31 days - 6 months >32 >20 7 months - 17 years >39 >39 >17 years >41 >41 NOTE: The adult ( >17 years ) reference intervalrange is used to flag abnormals on this report. If the patient is 17 years old or younger, use the table above to determine out of range values.Performed at: [address] [id number] Director: Richy Ardon PhD, Phone: [phone] erythrocytes [Presence] in Blood by Automated countOrdered By: Romel Davis on 11-44-6222Vvdpyxmmn RBC Auto Ql (Bld)0.1 /100{WBC}0-0.5FKindred Hospital DaytonPlatelet mean volume Auto (Bld) [Entitic vol]Ordered By: Romel Davis on 16-74-0444Vjonlflv mean volume (Bld) [Entitic vol]8.9 fL6.6-10.1 [facility] HospitalPlatelets Auto (Bld) [#/Vol]Ordered By: Romel Davis on 79-75-2726Kvrarxioj (Bld) [#/Vol]175 10*3/yU247-331BelkxntgoOhio State East HospitalPotassium [Moles/volume] in Serum or PlasmaOrdered By: Romel Davis on 29-24-2293Hsebsypok [Moles/Vol]4.1 mmol/L3.5-5.1FKindred Hospital DaytonProtein Auto test strip (U) [Mass/Vol]Ordered By: Romel Davis on 91-72-1380Scdkymc (U) [Mass/Vol]NegativeNegativeOhio State East HospitalProtein [Mass/volume] in Serum or PlasmaOrdered By: Romel Davis on 80-27-4046Iyxrpqc [Mass/Vol]6.1 g/dL6.4-8.9[facility] HospitalRBC Auto (Bld) [#/Vol]Ordered By: Romel Davis on 94-45-8075OVC (Bld) [#/Vol]4.96 10*6/uL3.90-5.60[facility] Hospitalerum or plasma albumin/globulin mass ratioOrdered By: Romel Davis on 09-05-2023 Albumin/Globulin [Mass ratio]2.2 {ratio}[facility] Hospitalerum or plasma anion gap determinationOrdered By: Romel Davis on 79-48-8599Epqwi gap [Moles/Vol]10.2 mmol/L6.0-15.0[facility] Hospitalerum or plasma complement C3 measurement (mass/volume)Ordered By: Romel Davis on 73-54-9345Wtkwwaosly C3 [Mass/Vol]124 mg/jT36-573RuaakouqnOhio State East HospitalComment on above:Performed at: - [facility] [id number] Director: Richy Ardon PhD, Phone: [phone] or plasma complement C4 measurement (mass/volume)Ordered By: Romel Davis on 89-70-0533Esgkatfkyb C4 [Mass/Vol]15 mg/dV82-37GeptcwbvnOhio State East Hospital Sodium [Moles/volume] in Serum or PlasmaOrdered By: Romel Davis on 09-05-2023 Sodium [Moles/Vol]141 mmol/Q428-213OehscxpxvOhioHealth Grady Memorial Hospitalpecific gravity Auto test strip (U) [Rel density]Ordered By: Romel Davis on 18-43-0022Mcocsqzv gravity (U) [Rel density]1.0251.001-1.030[facility] Hospitalquamous epithelial cells detection in urine sediment by light microscopyOrdered By: Romel Davis on 88-01-8896Rmzletnpns cells.squamous LM Ql (Urine sed)None seen [HPF]0-2FKindred Hospital DaytonUrea nitrogen [Mass/volume] in Serum or PlasmaOrdered By: Romel Davis on 05-90-9745Sngk nitrogen [Mass/Vol]19 mg/dL7-25[facility] HospitalUrine bacteria detection by automated methodOrdered By: Romel Davis on 50-52-6826Dglqnytc Auto Ql (U)None seenNone SeenOhio State East HospitalUrine clarity by refractometry automatedOrdered By: Romel Davis on 20-71-8593Mltjxzl Refractometry automated (U)ClearCleProtestant Deaconess HospitalUrine glucose measurement by automated test strip (mass/volume)Ordered By: Romel Davis on 71-92-0069Qogxkgf Auto test strip (U) [Mass/Vol]Normal mg/dLNoal [facility] HospitalUrine hemoglobin detection by automated test stripOrdered By: Romel Davis on 32-64-1419Dqilscwkqv Auto test strip Ql (U) NegativeNegKettering Health Main CampusUrine leukocyte esterase detection by automated test stripOrdered By: Romel Davis on 09-05-2023 Leukocyte esterase Auto test strip Ql (U)NegativeNegativeOhio State East HospitalUrobilinogen Auto test strip (U) [Mass/Vol]Ordered By: Romel Davis on 23-11-3622Evpmgnksgroa (U) [Mass/Vol]Normal mg/dLNormalOhio State East HospitalWBC Auto (Bld) [#/Vol]Ordered By: Romel Davis on 81-19-5400AKP (Bld) [#/Vol]5.9 10*3/uL4.1-10.5FKindred Hospital Dayton pH Auto test strip (U)Ordered By: Romel Ryan on 97-60-9796fH (U)5.5 [pH] 5.0-9.0[facility]24 hour urine sodium measurement (moles/time)Ordered By: Zac Muniz on 99-62-3035Hpdlym (24H U) [Moles/Time] 181 mmol/2440-220[facility]24 hour urine uric acid measurement (mass/time)Ordered By: Zac Muniz on 42-41-9579Ndwbx (24H U) [Mass/Time]674.9 mg/24 hr182.4-936.8[facility] HospitalComment on above:Performed at: [facility] [place] [id number] Director: Richy Ardon PhD, Phone: [phone] biopsyOrdered By: Zac Muniz on 78-41-8378LS sollsi42 HoursOhio State East HospitalCalcium [Mass/time] in 24 hour UrineOrdered By: Zac Muniz on 83-00-3023Ncmfqya (24H U) [Mass/Time]98 mg/24 hr0-320[facility] HospitalCalcium [Mass/volume] in 24 hour UrineOrdered By: Zac Muniz on 04-77-1122Stmyrgb (24H U) [Mass/Vol]3.3 mg/dLNot Estab.[facility] HospitalCalcium [Mass/volume] in Serum or PlasmaOrdered By: Zac Muniz on 69-33-7725Jalgtij [Mass/Vol]9.2 mg/dL8.6-10.3FKindred Hospital DaytonCarbon dioxide, total [Moles/volume] in Serum or PlasmaOrdered By: Zac Muniz on 08-16-2023 CO2 [Moles/Vol]22.4 mmol/L21.0-31.0[facility] HospitalChloride [Moles/volume] in Serum or PlasmaOrdered By: Zac Muniz on 08-16-2023 Chloride [Moles/Vol]108 mmol/R02-866IqcqcyvvuOhio State East HospitalCreatinine [Mass/volume] in Serum or PlasmaOrdered By: Zac Muniz on 08-16-2023 Creatinine [Mass/Vol]0.88 mg/dL0.70-1.30[facility] Creatinine [Mass/volume] in UrineOrdered By: Zac Muniz on 08-16-2023 Creatinine (U) [Mass/Vol]57.00 mg/dL14.00-26.00[facility] Magnesium [Mass/time] in 24 hour UrineOrdered By: Zac Muniz on 08-16-2023 Magnesium (24H U) [Mass/Time]97.7 mg/24 hr12.0-293.0[facility] HospitalMagnesium [Mass/volume] in UrineOrdered By: Zac Muniz on 08-16-2023 Magnesium (U) [Mass/Vol]3.3 mg/dLNot EstabMercy Health St. Rita'S Medical CenterNo Panel InformationOrdered By: Zac Muniz on 15-43-8520Qtbtcmtpk GFR (CKD-EPI) > 60.0 mL/MinOhio State East HospitalPharmacy Creatinine Clearance (ChemN/[facility] HospitalUrine Citric Rpje869 mg/LUndefined [facility] HospitalComment on above:This test was developed and its performance characteristicsdetermined by [employer]. It has not been cleared orapproved by the Food and Drug Administration.Urine Citric Acid 24 Kypm376 mg/24 hq446-6507QcqkyhowdOhio State East HospitalComment on above:Performed at: [address] [id number] Director: Kaley Joaquin MD, Phone: [phone] Creatinine 24 Hour1.68 g/24 hr 1.00-2.09[facility] HospitalOxalate [Mass/time] in 24 hour Urine Ordered By: Zac Muniz on 48-01-0825Ipqlznc (24H U) [Mass/Time]18 mg/24 hr 7-44[facility] HospitalOxalate [Mass/volume] in UrineOrdered By: Zac Muniz on 77-46-2163Cfpimdf (U) [Mass/Vol]6 mg/LUndefinedOhio State East HospitalParathyrin.intact [Mass/volume] in Serum or PlasmaOrdered By: Zac Muniz on 13-84-8484Hxrryibxay.intact [Mass/Vol]53.9 pg/mL12-88 [facility] HospitalPhosphate [Mass/time] in 24 hour UrineOrdered By: Zac Muniz on 18-81-6616Lmgtpgviu (24H U) [Mass/Time]462 mg/24 hr 390-1425[facility] HospitalPhosphate [Mass/volume] in UrineOrdered By: Zac Muniz on 14-92-0941Qlgunqyfo (U) [Mass/Vol]15.6 mg/dLNot Estab. [facility] HospitalPotassium [Moles/volume] in Serum or Plasma Ordered By: Zac Muniz on 46-60-9136Brvjrxfen [Moles/Vol]4.0 mmol/L3.5-5.1 [facility] Hospitalerum or plasma anion gap determinationOrdered By: Zac Muniz on 56-42-4208Vnumv gap [Moles/Vol]12.6 mmol/L6.0-15.0 [facility] Hospitalodium [Moles/volume] in Serum or PlasmaOrdered By: Zac Muniz on 76-24-4234Kxvklh [Moles/Vol]139 mmol/X743-333KjbpbruyvOhioHealth Grady Memorial Hospitalodium [Moles/volume] in UrineOrdered By: Zac Muniz on 84-85-5128Aiougm (U) [Moles/Vol]61.0 mmol/LFKindred Hospital Dayton Comment on above:No reference range establishedUrate [Mass/volume] in Serum or PlasmaOrdered By: Zac Muniz on 18-46-0165Uwdsn [Mass/Vol]4.3 mg/dL4.4-7.6 [facility] HospitalUrea nitrogen [Mass/volume] in Serum or Plasma Ordered By: Zac Muniz on 23-41-3135Qlvg nitrogen [Mass/Vol]22 mg/dL7-25 [facility] HospitalUrine uric acid measurement (mass/volume) Ordered By: Zac Muniz on 59-16-4510Rpojq (U) [Mass/Vol]22.8 mg/dLNot Estab. [facility] HospitalUrine volume measurementOrdered By: Zac Muniz on 31-83-6787Rmctmavz volume (U)2960 mlOhio State East Hospital Alanine aminotransferase [Enzymatic activity/volume] in Serum or PlasmaOrdered By: Zac Muniz on 17-72-5279IUN [Catalytic activity/Vol]34 U/L7-52[facility] HospitalAlbumin [Mass/volume] in Serum or Plasma by Bromocresol green (BCG) dye binding methoOrdered By: Zac Muniz on 27-90-4141Hniaouu BCG dye [Mass/Vol]4.4 g/dL3.5-5.7FKindred Hospital DaytonAlkaline phosphatase [Enzymatic activity/volume] in Serum or PlasmaOrdered By: Zac Muniz on 88-82-2155MWL [Catalytic activity/Vol]82 U/H60-389YnlnsttpcOhio State East HospitalAspartate aminotransferase [Enzymatic activity/volume] in Serum or PlasmaOrdered By: Zac Muniz on 54-93-5877PJR [Catalytic activity/Vol]24 U/L 13-39[facility] HospitalAutomated erythrocytes count in urine sediment (number/area)Ordered By: Christine Sanchez on 71-27-3194PRP Auto (Urine sed) [#/Area]1-2 [HPF]0-4FKindred Hospital DaytonAutomated leukocytes count in urine sediment (number/area)Ordered By: Christine Sanchez on 90-50-2252TFA Auto (Urine sed) [#/Area]0-1 [HPF]0-4FKindred Hospital DaytonBasophils Auto (Bld) [#/Vol]Ordered By: Christine Sanchez on 42-17-9303Pzakojqgj (Bld) [#/Vol]0.0 10*3/uL0.0-0.2FKindred Hospital DaytonBasophils/100 WBC Auto (Bld)Ordered By: Christine Sanchez on 43-42-3005Gwtfekyvb/100 WBC (Bld)0.8 %. [facility] HospitalBilirubin Test strip Ql (U)Ordered By: Christine Sanchez on 54-03-0473Islyalvgt Ql (U)NegativeNegativeOhio State East HospitalBilirubin.total [Mass/volume] in Serum or PlasmaOrdered By: Zac Muniz on 84-97-2033Eygyenojw [Mass/Vol]0.8 mg/dL0.3-1.0[facility] HospitalCalcium [Mass/volume] in Serum or PlasmaOrdered By: Zac Muniz on 37-59-4333Qsliecz [Mass/Vol]9.1 mg/dL8.6-10.3FKindred Hospital DaytonCarbon dioxide, total [Moles/volume] in Serum or Plasma Ordered By: Zac Muniz on 66-92-1397CL1 [Moles/Vol]24.0 mmol/L21.0-31.0 [facility] HospitalChloride [Moles/volume] in Serum or Plasma Ordered By: Zac Muniz on 64-79-8579Xbtezofl [Moles/Vol]106 mmol/L98-107 [facility] HospitalColor Auto (U)Ordered By: Christine Sanchez on 11-38-1140Kygzd (U)YellowYellowOhio State East HospitalCreatinine [Mass/volume] in Serum or PlasmaOrdered By: Zac Muniz on 05-31-2023 Creatinine [Mass/Vol]1.05 mg/dL0.70-1.30[facility] Eosinophils Auto (Bld) [#/Vol]Ordered By: Christine Sanchez on 05-31-2023 Eosinophils (Bld) [#/Vol]0.1 10*3/uL0.0-0.45[facility] Eosinophils/100 WBC Auto (Bld)Ordered By: Christine Sanchez on 05-31-2023 Eosinophils/100 WBC (Bld)1.4 %.[facility] HospitalErythrocyte distribution width Auto (RBC) [Ratio]Ordered By: Christine Sanchez on 05-31-2023 Erythrocyte distribution width (RBC) [Ratio]14.9 %12.0-14.8[facility] HospitalErythrocyte sedimentation rate by Photometric methodOrdered By: Christine Sanchez on 35-72-2877AHS Photometric method (Bld) [Velocity]6 mm/hr0-19 [facility] HospitalGlobulin Calc (S) [Mass/Vol]Ordered By: Zac Muniz on 98-22-9781Pwifplqk (S) [Mass/Vol]2.3 g/dLOhio State East HospitalGlucose [Mass/volume] in Serum or PlasmaOrdered By: Zac Muniz on 68-52-9496Hhjnmww [Mass/Vol]82 mg/aZ20-317GyprdtvajOhio State East Hospital Comment on above:ADA recommended reference rangeRandom Glucose Reference Range is dependent on time and content of last meal. Glucose of more than 200 mg/dL in a nonstressed, ambulatory subject supports the diagnosisof Diabetes Mellitus. Hematocrit Auto (Bld) [Volume fraction]Ordered By: Christine Sanchez on 05-31-2023 Hematocrit (Bld) [Volume fraction]43.1 %38.8-50.0[facility] HospitalHemoglobin [Mass/volume] in BloodOrdered By: Christine Sanchez on 05-31-2023 Hemoglobin (Bld) [Mass/Vol]14.9 g/dL13.0-17.0[facility] Ketones Auto test strip (U) [Mass/Vol]Ordered By: Christine Sanchez on 05-31-2023 Ketones (U) [Mass/Vol]TraceNegativeOhio State East HospitalLaboratory - UrinalysisOrdered By: Christine Sanchez on 38-13-0582Ehxmvpd casts LM Ql (Urine sed)0-8 [LPF]0-8[facility] HospitalLeukocytes [#/volume] corrected for nucleated erythrocytes in Blood by Automated counOrdered By: Christine Sanchez on 89-73-4186IZY corrected for nucl RBC Auto (Bld) [#/Vol]5.5 10*3/uL4.1-10.5 [facility] HospitalLymphocytes Auto (Bld) [#/Vol]Ordered By: Christine Sanchez on 76-43-2768Qbfeybiwyzi (Bld) [#/Vol]1.3 10*3/uL1.00-4.8[facility] HospitalLymphocytes/100 WBC Auto (Bld)Ordered By: Christine Sanchez on 53-46-1973Qhdzpsqejuw/100 WBC (Bld)24.3 %.[facility] MCH Auto (RBC) [Entitic mass]Ordered By: Christine Sanchez on 18-16-1070MID (RBC) [Entitic mass]30.8 pg27.5-35.2FKindred Hospital DaytonMCHC Auto (RBC) [Mass/Vol]Ordered By: Christine Sanchez on 84-49-8959KKTB (RBC) [Mass/Vol]34.6 g/dL 32.5-35.6FKindred Hospital DaytonMCV Auto (RBC) [Entitic vol]Ordered By: Christine Sanchez on 10-60-5555TDJ (RBC) [Entitic vol]89.1 fL83.5-101[facility] HospitalMonocytes Auto (Bld) [#/Vol]Ordered By: Christine Sanchez on 49-71-5444Seqjychuf (Bld) [#/Vol]0.7 10*3/uL0.0-0.8[facility] HospitalMonocytes/100 WBC Auto (Bld)Ordered By: Christine Sanchez on 05-31-2023 Monocytes/100 WBC (Bld)12.9 %.[facility] HospitalNeutrophils Auto (Bld) [#/Vol]Ordered By: Christine Sanchez on 77-85-1229Eeorpispmjy (Bld) [#/Vol] 3.3 10*3/uL1.8-7.7FKindred Hospital DaytonNeutrophils/100 WBC Auto (Bld)Ordered By: Christine Sanchez on 98-93-6079Dkhxokxtdzn/100 WBC (Bld)60.6 %. [facility] HospitalNitrite Test strip Ql (U)Ordered By: Christine Sanchez on 03-83-3448Qynnkqm Ql (U)NegativeNegativeOhio State East HospitalNo Panel InformationOrdered By: Zac Muniz on 43-89-8477Puyntrpds GFR (CKD-EPI)> 60.0 mL/MinOhio State East HospitalPharmacy Creatinine Clearance (ChemN/AFKindred Hospital DaytonNo Panel InformationOrdered By: Christine Sanchez on 91-44-9067Vidis Complement (CH50)60 U/mL>41[facility] HospitalComment on above:Age Male Female 1 - 30 days Not Estab. Not Estab. 31 days - 6 months >32 >20 7 months - 17 years >39 >39 >17 years >41 >41 NOTE: The adult ( >17 years ) reference intervalrange is used to flag abnormals on this report. If the patient is 17 years old or younger, use the t able above to determine out of range values.Performed at: [facility]B[place] [id number] Director: Richy Ardon PhD, Phone: [phone] erythrocytes [Presence] in Blood by Automated count Ordered By: Christine Sanchez on 12-03-2370Mbxmoljzc RBC Auto Ql (Bld)0.1 /100{WBC} 0-0.5FKindred Hospital DaytonPlatelet mean volume Auto (Bld) [Entitic vol]Ordered By: Christine Sanchez on 40-89-0322Opiduwzv mean volume (Bld) [Entitic vol]8.4 fL6.6-10.1FKindred Hospital DaytonPlatelets Auto (Bld) [#/Vol] Ordered By: Christine Sanchez on 84-60-0020Obovmkzvc (Bld) [#/Vol]178 10*3/uL 150-450[facility] HospitalPotassium [Moles/volume] in Serum or PlasmaOrdered By: Zac Muniz on 18-66-6887Fxvqgrskn [Moles/Vol]4.4 mmol/L 3.5-5.1FKindred Hospital DaytonProtein Auto test strip (U) [Mass/Vol] Ordered By: Christine Sanchez on 32-41-1014Yiegjnn (U) [Mass/Vol]Trace mg/dL NegativeOhio State East HospitalProtein [Mass/volume] in Serum or PlasmaOrdered By: Zac Muniz on 74-25-9348Kwdexmo [Mass/Vol]6.7 g/dL6.4-8.9 [facility] HospitalRBC Auto (Bld) [#/Vol]Ordered By: Christine Sanchez on 25-61-6884WLD (Bld) [#/Vol]4.84 10*6/uL3.90-5.60[facility] Hospitalerum or plasma albumin/globulin mass ratioOrdered By: Zac Muniz on 19-05-1358Rfkgrqp/Globulin [Mass ratio]1.9 {ratio}[facility] Hospitalerum or plasma anion gap determinationOrdered By: Zac Muniz on 88-50-5356Hfigw gap [Moles/Vol]11.4 mmol/L6.0-15.0[facility] Hospitalerum or plasma complement C3 measurement (mass/volume)Ordered By: Christine Sanchez on 93-38-8844Iryiaeixqw C3 [Mass/Vol]132 mg/iB32-031EgwunwjdgOhio State East HospitalComment on above:Performed at: [employer] [facility] [place] [id number] Director: Richy Ardon PhD, Phone: [phone] Serum or plasma complement C4 measurement (mass/volume)Ordered By: Christine Sanchez on 60-88-4827Clsjbczqrp C4 [Mass/Vol]16 mg/uE45-17WbljbbaivOhioHealth Grady Memorial Hospitalodium [Moles/volume] in Serum or PlasmaOrdered By: Zac Munzi on 37-34-2932Pougqr [Moles/Vol]137 mmol/S196-161KtdabkdwrOhioHealth Grady Memorial Hospitalpecific gravity Auto test strip (U) [Rel density]Ordered By: Christine Sanchez on 48-56-5835Tlvzjymg gravity (U) [Rel density]1.0231.001-1.030 [facility] Hospitalquamous epithelial cells detection in urine sediment by light microscopyOrdered By: Christine Sanchez on 22-29-3214Hipzneonrv cells.squamous LM Ql (Urine sed)None seen [HPF]0-2FKindred Hospital DaytonUrea nitrogen [Mass/volume] in Serum or PlasmaOrdered By: Zac Muniz on 75-51-2808Cznk nitrogen [Mass/Vol]28 mg/dL7-25[facility] HospitalUrine bacteria detection by automated methodOrdered By: Christine Sanchez on 37-40-4571Geyrdzpz Auto Ql (U)None seenNone SeenOhio State East HospitalUrine clarity by refractometry automatedOrdered By: Christine Sanchez on 31-26-1646Cskhmcj Refractometry automated (U)ClearCleProtestant Deaconess HospitalUrine glucose measurement by automated test strip (mass/volume) Ordered By: Christine Sanchez on 56-62-9287Ctkyvda Auto test strip (U) [Mass/Vol] Normal mg/dLNoBlanchard Valley Health System Bluffton HospitalUrine hemoglobin detection by automated test stripOrdered By: Christine Sanchez on 06-96-3669Muwldajwig Auto test strip Ql (U)NegativeNegKettering Health Main CampusUrine leukocyte esterase detection by automated test stripOrdered By: Christine Sanchez on 55-47-2749Adpqlibce esterase Auto test strip Ql (U)NegativeNegKettering Health Main CampusUrobilinogen Auto test strip (U) [Mass/Vol]Ordered By: Christine Sanchez on 38-32-2864Rqlrcwpqwzbe (U) [Mass/Vol]Normal mg/dLSt. Vincent HospitalWBC Auto (Bld) [#/Vol]Ordered By: Christine Sanchez on 81-59-2669AWU (Bld) [#/Vol]5.5 10*3/uL4.1-10.5FKindred Hospital DaytonpH Auto test strip (U)Ordered By: Christine Sanchez on 61-95-5413sF (U)5.5 [pH]5.0-9.0[facility] HospitalAmmonium urate crystals detection in stone by infrared spectroscopyOrdered By: Zac Muniz on 48-26-0746Jyanqaib urate crystals Infrared spectroscopy Ql (Stone)[facility] CenterCalcium bilirubinate measurementOrdered By: Zac Muniz on 80-71-6352Pjaglpa bilirubinate (Stone) [Mass fraction]N/[facility] HospitalCalcium carbonate measurementOrdered By: Zac Muniz on 66-58-8509Isdxddz carbonate (Stone) [Mass fraction]N/[facility] HospitalCalcium hydrogen phosphate dihydrate/Total in StoneOrdered By: Zac Muniz on 61-61-8597Hhbzscg hydrogen phosphate dihydrate (Stone) [Mass fraction]N/[facility] HospitalCalcium oxalate dihydrate crystals detection in stone by infrared spectroscopyOrdered By: Zac Muniz 69-57-1976Mdjqnps oxalate dihydrate crystals Infrared spectroscopy Ql (Stone)N/A [facility] HospitalCalcium oxalate monohydrate/Total in Stone Ordered By: Zac Muniz 01-80-1520Qkxixdw oxalate monohydrate (Stone) [Mass fraction]N/[facility] HospitalCalcium phosphate measurement Ordered By: Zac Muniz on 65-11-0582Blsvwma phosphate (Stone) [Mass fraction]N/[facility] HospitalCalculus analysis interpretation in stoneOrdered By: Zac Muniz 21-36-0506Npnaqaib analysis [Interp]N/A [facility] HospitalCalculus analysis [Interp]See comment.[facility] HospitalComment on above:Physician questions regarding Calculi Analysis contactQuinlan Eye Surgery & Laser CenterCorp at: [phone].Calculi report will follow via computer, mail or courierdelivery.Calculus analysis with calculus photography interpretation in stoneOrdered By: Zac Muniz on 18-18-8956Sqiavzqs analysis with calculus photography [Interp]See comment.[facility] Comment on above:Photograph will follow under a separate coverCellular material measurement in stone by estimated (mass/mass)Ordered By: Zac Muniz on 69-72-8564Wmsvlfah material Est (Stone) [Mass/Mass]N/[facility] HospitalCholesterol/Total in StoneOrdered By: Zac Muniz on 05-18-2023 Cholesterol (Stone) [Mass fraction]N/[facility] Composition of stoneOrdered By: Zac Muniz 07-20-2815Euhumpryxlw Nom (Stone)See comment.[facility] HospitalComment on above:Percentage (Represents the % composition)Cystine measurementOrdered By: Zac Muniz 83-47-5980Bbgbcnn (Unsp spec) [Moles/Vol][facility] Determination of color of calculusOrdered By: Zac Muniz on 66-98-7205Kwvxy (Stone)Alexander.[facility] HospitalHydroxyapatite [Energy Difference] in 24 hour UrineOrdered By: Zac Muniz on 34-29-8243Samsogohflfavr (24H U) [Energy diff][facility] CenterMeasurement of proportion of calculus composed of dried blood (mass/mass)Ordered By: Zac Muniz on 45-98-0754Yfdvu.dried (Stone) [Mass fraction][facility] CenterNewberyite/Total in StoneOrdered By: Zac Muniz on 05-18-2023 Newberyite (Stone) [Mass fraction][facility] CenterNo Panel InformationOrdered By: Zac Muniz on 82-05-1528Wktrk 2,8 DihydroxyadenineN/A [facility] Hospitaltone Analysis DisclaimerSee comment.[facility] HospitalComment on above:This test was developed and its performance characteristicsdetermined by [employer]. It has not been cleared or approvedby the Food and Drug Administration.Performed at: [address] [id number] Director: Jimmy Warner PhD, Phone: [phone] BilirubinWellstone Regional Hospital/[facility], Beachwoodtone Calcium PalmitateN/[facility], [place]woodtone Calcium StearateN/A [facility] Hospitaltone Carbonate ApatiteN/[facility], [place]tone Drug or MetaboliteN/[facility] [place]tone Other ConstituentN/[facility], [place]woodtone XanthineN/[facility], Beachwoodize [Entitic volume] of StoneOrdered By: Zac Muniz on 46-01-3839Sywm (Stone) [Entitic vol]4x4 mm.[facility] Comment on above:Multiple pieces received. Dimensions of the largest piecereported.Sodium urate crystals detection in stone by infrared spectroscopy Ordered By: Zac Muniz on 49-34-4065Nxixcf urate crystals Infrared spectroscopy Ql (Stone)[facility] Hospitalpecimen source subject [Type]Ordered By: Zac Muniz on 21-90-0820Atbsdwmd source subject NomSee comment.[facility] HospitalComment on above:Not provided Triamterene measurement in calculusOrdered By: Zac Muniz on 05-18-2023 Triamterene (Stone) [Mass fraction]NTogus VA Medical CenterTriple phosphate/Total in StoneOrdered By: Zac Muniz on 47-86-0192Fkinht phosphate (Stone) [Mass fraction]N/[facility] HospitalUric acid dihydrate crystals detection in stone by infrared spectroscopyOrdered By: Zac Muniz on 40-32-9856Qxwxo dihydrate crystals Infrared spectroscopy Ql (Stone)100 %. [facility] [facility] HospitalUrate dihydrate crystals Infrared spectroscopy Ql (Stone)N/[facility] HospitalTobacco Screening.on 05-09-2023 Adult depression screening assessmentNoV[facility] Administration [employer] DO Work Phone: Fall risk assessmenta) No falls within the last year [facility] [employer] 250 DO Work Phone: Tobacco use status CPHSb) [facility] [place] 250 DO Work Phone: Automated erythrocytes count in urine sediment (number/area)Ordered By: Romel Orta on 74-45-4084HRY Auto (Urine sed) [#/Area]1-2 [HPF]0-4FKindred Hospital DaytonAutomated leukocytes count in urine sediment (number/area)Ordered By: Romel Orta on 03-81-6714VAP Auto (Urine sed) [#/Area]3-4 [HPF]0-4FKindred Hospital DaytonBasophils Auto (Bld) [#/Vol]Ordered By: Romel Orta on 80-13-8423Txfgfpaew (Bld) [#/Vol]0.1 10*3/uL0.0-0.2FKindred Hospital DaytonBasophils/100 WBC Auto (Bld)Ordered By: Romel Orta on 12-25-3631Gaozexbwt/100 WBC (Bld)0.6 %. [facility] HospitalBilirubin Test strip Ql (U)Ordered By: Romel Orta on 84-23-9460Wgqdicwtr Ql (U)NegativeNegativeOhio State East HospitalCalcium [Mass/volume] in Serum or PlasmaOrdered By: Romel Orta on 43-81-8178Zurthai [Mass/Vol]8.8 mg/dL8.6-10.3FKindred Hospital Dayton Carbon dioxide, total [Moles/volume] in Serum or PlasmaOrdered By: Romel Orta on 02-17-2299GS4 [Moles/Vol]20.8 mmol/L21.0-31.0[facility] HospitalChloride [Moles/volume] in Serum or PlasmaOrdered By: Romel Orta on 17-59-9071Olkmzura [Moles/Vol]105 mmol/I88-247ShvezsinaOhio State East HospitalColor Auto (U)Ordered By: Romel Orta on 61-57-7893Kshoz (U) YellowYellowOhio State East HospitalCreatinine [Mass/volume] in Serum or PlasmaOrdered By: Romel Orta on 70-51-2930Rdndozpvbi [Mass/Vol]1.94 mg/dL0.70-1.30[facility] HospitalEosinophils Auto (Bld) [#/Vol] Ordered By: Romel Orta on 82-94-3455Nrdixsodmdp (Bld) [#/Vol]0.1 10*3/uL 0.0-0.45[facility] HospitalEosinophils/100 WBC Auto (Bld)Ordered By: Romel Orta on 46-23-5119Azxyhxkzyqt/100 WBC (Bld)1.1 %.[facility] HospitalErythrocyte distribution width Auto (RBC) [Ratio]Ordered By: Romel Orta on 85-16-1723Lablvrshorh distribution width (RBC) [Ratio] 14.3 %12.0-14.8[facility] HospitalGlucose [Mass/volume] in Serum or PlasmaOrdered By: Romel Orta on 63-31-5088Mwrgvow [Mass/Vol]98 mg/dL 70-100[facility] HospitalComment on above:ADA recommended reference rangeRandom Glucose Reference Range is dependent on time and content of last meal. Glucose of more than 200 mg/dL in a nonstressed, ambulatory subject supports the diagnosisof Diabetes Mellitus.Hematocrit Auto (Bld) [Volume fraction]Ordered By: Romel Orta on 62-23-4239Uhnvxlvdgz (Bld) [Volume fraction]38.9 %38.8-50.0[facility] HospitalHemoglobin [Mass/volume] in BloodOrdered By: Romel Orta on 41-97-7491Ptjpaodlli (Bld) [Mass/Vol]13.7 g/dL13.0-17.0[facility] HospitalKetones Auto test strip (U) [Mass/Vol]Ordered By: Romel Orta on 15-15-1401Kkbklcj (U) [Mass/Vol]TraceNegativeOhio State East HospitalLaboratory - Urinalysis Ordered By: Romel Orta on 19-21-6810Uyalzwt casts LM Ql (Urine sed)0-8 [LPF]0-8[facility] HospitalLeukocytes [#/volume] corrected for nucleated erythrocytes in Blood by Automated counOrdered By: Romel Orta on 32-61-4350YAC corrected for nucl RBC Auto (Bld) [#/Vol]9.9 10*3/uL4.1-10.5 [facility] HospitalLymphocytes Auto (Bld) [#/Vol]Ordered By: Romel Orta on 00-87-9341Hcxpczgqydr (Bld) [#/Vol]0.6 10*3/uL1.00-4.8 [facility] HospitalLymphocytes/100 WBC Auto (Bld)Ordered By: Romel Orta on 78-09-5094Rbexfuuzfea/100 WBC (Bld)6.2 %.[facility] Auto (RBC) [Entitic mass]Ordered By: Romel Orta on 13-77-1135MNF (RBC) [Entitic mass]31.3 pg27.5-35.2FSt. Rita's Hospital Auto (RBC) [Mass/Vol]Ordered By: Romel Orta on 98-91-9882OWJJ (RBC) [Mass/Vol]35.2 g/dL32.5-35.6FKindred Hospital DaytonMCV Auto (RBC) [Entitic vol]Ordered By: Romel Orta on 44-79-5189FVA (RBC) [Entitic vol]88.9 fL83.5-101[facility] HospitalMonocyte distribution width [Entitic volume] in Blood by AutomatedOrdered By: Romel Orta on 05-07-2023 Monocyte distribution width Auto (Bld) [Entitic vol]22.82 %0.00-20.00[facility] HospitalComment on above:For adults in ED, MDW > 20.0 may be associated with a higher risk of sepsis during the first 12 hrs of hospital admissionMonocytes Auto (Bld) [#/Vol]Ordered By: Romel Orta on 05-07-2023 Monocytes (Bld) [#/Vol]1.5 10*3/uL0.0-0.8[facility] Monocytes/100 WBC Auto (Bld)Ordered By: Romel Orta on 05-07-2023 Monocytes/100 WBC (Bld)15.4 %.[facility] HospitalNeutrophils Auto (Bld) [#/Vol]Ordered By: Romel Orta on 49-41-3533Tsngmwfbbpg (Bld) [#/Vol] 7.6 10*3/uL1.8-7.7FKindred Hospital DaytonNeutrophils/100 WBC Auto (Bld)Ordered By: Romel Orta on 65-14-1877Crycqntasri/100 WBC (Bld)76.7 %. [facility] HospitalNitrite Test strip Ql (U)Ordered By: Romel Orta on 31-60-1731Urqdlox Ql (U)NegativeNegativeOhio State East HospitalNo Panel InformationOrdered By: Romel Orta on 49-84-7665Xgypskqot GFR (CKD-EPI)37.476 mL/MinOhio State East HospitalPharmacy Creatinine Clearance (Chem41.86[facility] HospitalNucleated erythrocytes [Presence] in Blood by Automated countOrdered By: Romel Orta on 05-07-2023 Nucleated RBC Auto Ql (Bld)0.1 /100{WBC}0-0.5FKindred Hospital Dayton Platelet mean volume Auto (Bld) [Entitic vol]Ordered By: Romel Orta on 44-77-4569Xmjukiqy mean volume (Bld) [Entitic vol]8.3 fL6.6-10.1FKindred Hospital DaytonPlatelets Auto (Bld) [#/Vol]Ordered By: Romel Orta on 18-33-3559Oijluyjbx (Bld) [#/Vol]193 10*3/wS093-507NqpqraaqoOhio State East HospitalPotassium [Moles/volume] in Serum or PlasmaOrdered By: Romel Orta on 08-40-9497Rtmoeglpe [Moles/Vol]4.2 mmol/L3.5-5.1FKindred Hospital DaytonProtein Auto test strip (U) [Mass/Vol]Ordered By: Romel Orta on 66-72-6235Uvbkesp (U) [Mass/Vol]NegativeNegativeOhio State East HospitalRBC Auto (Bld) [#/Vol]Ordered By: Romel Orta on 90-99-4422IVA (Bld) [#/Vol]4.38 10*6/uL3.90-5.60[facility] Hospitalerum or plasma anion gap determinationOrdered By: Romel Orta on 53-22-3393Azhtk gap [Moles/Vol]15.4 mmol/L6.0-15.0[facility] Hospitalodium [Moles/volume] in Serum or PlasmaOrdered By: Romel Orta on 05-07-2023 Sodium [Moles/Vol]137 mmol/Q623-390LfkbuqaafOhioHealth Grady Memorial Hospitalpecific gravity Auto test strip (U) [Rel density]Ordered By: Romel Orta on 88-82-6428Vwevimoi gravity (U) [Rel density]1.0281.001-1.030[facility] Hospitalquamous epithelial cells detection in urine sediment by light microscopyOrdered By: Romel Orta on 56-19-3826Tavdtbgvzc cells.squamous LM Ql (Urine sed)0-1 [HPF]0-2FKindred Hospital DaytonUrea nitrogen [Mass/volume] in Serum or PlasmaOrdered By: Romel Orta on 58-00-7519Fopk nitrogen [Mass/Vol]34 mg/dL7-[facility] HospitalUrine bacteria detection by automated methodOrdered By: Romel Orta on 09-59-8331Jhdiduig Auto Ql (U)None seenNone SeenOhio State East HospitalUrine clarity by refractometry automatedOrdered By: Romel Orta on 87-62-5621Sezrwer Refractometry automated (U)CloudyCleProtestant Deaconess HospitalUrine glucose measurement by automated test strip (mass/volume)Ordered By: Romel Orta on 76-07-6541Ygykggf Auto test strip (U) [Mass/Vol]Normal mg/dLSt. Vincent HospitalUrine hemoglobin detection by automated test stripOrdered By: Romel Orta on 80-01-4366Prqewusfha Auto test strip Ql (U) NegativeNegKettering Health Main CampusUrine leukocyte esterase detection by automated test stripOrdered By: Romel Orta on 05-07-2023 Leukocyte esterase Auto test strip Ql (U)NegativeNegKettering Health Main CampusUrine sediment crystal identification by light microscopyOrdered By: Romel Orta on 15-05-2882Pwuqhsni LM Nom (Urine sed)N/[facility] HospitalUrobilinogen Auto test strip (U) [Mass/Vol]Ordered By: Romel Orta on 37-74-5506Rvcjjeimuihd (U) [Mass/Vol]Normal mg/dLSt. Vincent HospitalWBC Auto (Bld) [#/Vol]Ordered By: Romel Orta on 67-95-8246EQX (Bld) [#/Vol]9.9 10*3/uL4.1-10.5FKindred Hospital DaytonpH Auto test strip (U)Ordered By: Romel Orta on 14-16-9566cW (U)5.0 [pH]5.0-9.0[facility] HospitalAlanine aminotransferase [Enzymatic activity/volume] in Serum or PlasmaOrdered By: Edenilson Reinoso on 40-49-7516WYM [Catalytic activity/Vol]44 U/L7-52[facility] HospitalAlbumin [Mass/volume] in Serum or Plasma by Bromocresol green (BCG) dye binding methoOrdered By: Edenilson Reinoso on 27-05-1235Ocmtldm BCG dye [Mass/Vol] 4.4 g/dL3.5-5.7FKindred Hospital DaytonAlkaline phosphatase [Enzymatic activity/volume] in Serum or PlasmaOrdered By: Edenilson Reinoso on 37-59-8156WHZ [Catalytic activity/Vol]79 U/C32-248ByhodvthvOhio State East HospitalAspartate aminotransferase [Enzymatic activity/volume] in Serum or PlasmaOrdered By: Edenilson Reinoso on 31-25-4073HIP [Catalytic activity/Vol]28 U/J67-93GpryozvesOhio State East HospitalAutomated erythrocytes count in urine sediment (number/area)Ordered By: Edenilson Reinoso on 20-86-4715WEA Auto (Urine sed) [#/Area]10-19 [HPF]0-4FKindred Hospital DaytonAutomated leukocytes count in urine sediment (number/area)Ordered By: Edenilson Reinoso on 86-55-0452IUU Auto (Urine sed) [#/Area]0-1 [HPF]0-4FKindred Hospital DaytonBasophils Auto (Bld) [#/Vol]Ordered By: Edenilson Reinoso on 68-27-4529Uzdlcbqrc (Bld) [#/Vol] 0.0 10*3/uL0.0-0.2FKindred Hospital DaytonBasophils/100 WBC Auto (Bld) Ordered By: Edenilson Reinoso on 72-85-7754Tzmtrvvpu/100 WBC (Bld)0.3 %.[facility] HospitalBilirubin Test strip Ql (U)Ordered By: Edenilson Reinoso on 84-88-7096Zxtsgohdu Ql (U)NegativeNegativeOhio [facility] Hospital Bilirubin.direct [Mass/volume] in Serum or PlasmaOrdered By: Edenilson Reinoso on 03-21-8323Vmxlmrrsr.direct [Mass/Vol]0.20 mg/dL0.03-0.18FKindred Hospital DaytonBilirubin.total [Mass/volume] in Serum or PlasmaOrdered By: Edenilson Reinoso on 38-88-7005Pacaiblpm [Mass/Vol]1.0 mg/dL0.3-1.0[facility] HospitalCalcium [Mass/volume] in Serum or PlasmaOrdered By: Edenilson Reinoso on 83-31-3850Mnadich [Mass/Vol]9.2 mg/dL8.6-10.3FKindred Hospital DaytonCarbon dioxide, total [Moles/volume] in Serum or PlasmaOrdered By: Edenilson Reinoso on 86-66-5848NS4 [Moles/Vol]21.3 mmol/L21.0-31.0[facility] HospitalChloride [Moles/volume] in Serum or PlasmaOrdered By: Edenilson Reinoso on 08-95-3185Pdvadtkf [Moles/Vol]105 mmol/X83-554FicnbbdfnOhio State East HospitalColor Auto (U)Ordered By: Edenilson Reinoso on 13-74-0556Jrzyr (U) YellowYellowOhio State East HospitalCreatinine [Mass/volume] in Serum or PlasmaOrdered By: Edenilson Reinoso on 51-70-2957Dnkitsczwz [Mass/Vol]1.51 mg/dL 0.70-1.30[facility] HospitalEosinophils Auto (Bld) [#/Vol]Ordered By: Edenilson Reinoso on 47-10-0898Zbruwiqwgqg (Bld) [#/Vol]0.0 10*3/uL0.0-0.45 [facility] HospitalEosinophils/100 WBC Auto (Bld)Ordered By: Edenilson Reinoso on 63-91-7962Yhfgjbqrvah/100 WBC (Bld)0.3 %.[facility] HospitalErythrocyte distribution width Auto (RBC) [Ratio]Ordered By: Edenilson Reinoso on 31-65-6245Uhcqrskivrp distribution width (RBC) [Ratio]14.9 % 12.0-14.8[facility] HospitalGlobulin Calc (S) [Mass/Vol]Ordered By: Edenilson Reinoso on 36-97-7995Ctdynilp (S) [Mass/Vol]2.3 g/dLOhio State East HospitalGlucose [Mass/volume] in Serum or PlasmaOrdered By: Edenilson Reinoso on 38-36-5584Jcgfjfn [Mass/Vol]107 mg/eW96-774CvmkwwuuxOhio State East Hospital Comment on above:ADA recommended reference rangeRandom Glucose Reference Range is dependent on time and content of last meal. Glucose of more than 200 mg/dL in a nonstressed, ambulatory subject supports the diagnosisof Diabetes Mellitus. Hematocrit Auto (Bld) [Volume fraction]Ordered By: Edenilson Reinoso on 05-03-2023 Hematocrit (Bld) [Volume fraction]44.5 %38.8-50.0[facility] HospitalHemoglobin [Mass/volume] in BloodOrdered By: Edenilson Reinoso on 05-03-2023 Hemoglobin (Bld) [Mass/Vol]15.7 g/dL13.0-17.0[facility] Ketones Auto test strip (U) [Mass/Vol]Ordered By: Edenilson Reinoso on 05-03-2023 Ketones (U) [Mass/Vol]TraceNegativeOhio State East HospitalLaboratory - UrinalysisOrdered By: Edenilson Reinoso on 84-05-3311Icptqgq casts LM Ql (Urine sed)0-8 [LPF]0-8[facility] HospitalLeukocytes [#/volume] corrected for nucleated erythrocytes in Blood by Automated counOrdered By: Edenilson Reinoso on 64-84-0466OKK corrected for nucl RBC Auto (Bld) [#/Vol]13.4 10*3/uL4.1-10.5 [facility] HospitalLipase [Enzymatic activity/volume] in Serum or PlasmaOrdered By: Edenilson Reinoso on 10-79-8855Ouuwac [Catalytic activity/Vol]28.0 U/L11.0-82.0[facility] HospitalLymphocytes Auto (Bld) [#/Vol] Ordered By: Edenilson Reinoso on 55-66-1715Qtsclyjqegi (Bld) [#/Vol]0.6 10*3/uL 1.00-4.8[facility] HospitalLymphocytes/100 WBC Auto (Bld)Ordered By: Edenilson Reinoso on 36-17-1920Ugyxhibxnrd/100 WBC (Bld)4.3 %.[facility] Auto (RBC) [Entitic mass]Ordered By: Edenilson Reinoso on 03-39-9111DMH (RBC) [Entitic mass]31.1 pg27.5-35.2FSt. Rita's Hospital Auto (RBC) [Mass/Vol]Ordered By: Edenilson Reinoso on 16-20-1355ZXGC (RBC) [Mass/Vol]35.4 g/dL32.5-35.6FKindred Hospital DaytonMCV Auto (RBC) [Entitic vol]Ordered By: Edenilson Reinoso on 54-85-3265JGH (RBC) [Entitic vol]87.9 fL83.5-101[facility] HospitalMonocyte distribution width [Entitic volume] in Blood by AutomatedOrdered By: Edenilson Reinoso on 05-03-2023 Monocyte distribution width Auto (Bld) [Entitic vol]24.56 %0.00-20.00[facility] HospitalComment on above:For adults in ED, MDW > 20.0 may be associated with a higher risk of sepsis during the first 12 hrs of hospital admissionMonocytes Auto (Bld) [#/Vol]Ordered By: Edenilson Reinoso on 05-03-2023 Monocytes (Bld) [#/Vol]1.5 10*3/uL0.0-0.8[facility] Monocytes/100 WBC Auto (Bld)Ordered By: Edenilson Reinoso on 23-30-5814Vghbjysku/100 WBC (Bld)11.0 %.[facility] HospitalNeutrophils Auto (Bld) [#/Vol] Ordered By: Edenilson Reinoso on 42-22-6420Uhmmddfhody (Bld) [#/Vol]11.3 10*3/uL 1.8-7.7FKindred Hospital DaytonNeutrophils/100 WBC Auto (Bld)Ordered By: Edenilson Reinoso on 46-20-5368Tlcffsufehr/100 WBC (Bld)84.1 %.[facility] HospitalNitrite Test strip Ql (U)Ordered By: Edenilson Reinoso on 59-34-8079Kblomns Ql (U)NegativeNegativeOhio State East HospitalNo Panel InformationOrdered By: Edenilson Reinoso on 53-17-6779Vxhfipknc GFR (CKD-EPI) 50.623 mL/MinOhio State East HospitalPharmacy Creatinine Clearance (Chem54.49[facility] HospitalNucleated erythrocytes [Presence] in Blood by Automated countOrdered By: Edenilson Reinoso on 79-75-6579Dzhzohrnj RBC Auto Ql (Bld)0.1 /100{WBC}0-0.5FKindred Hospital DaytonPlatelet mean volume Auto (Bld) [Entitic vol]Ordered By: Edenilson Reinoso on 01-64-6777Ythqgheb mean volume (Bld) [Entitic vol]8.4 fL6.6-10.1FKindred Hospital Dayton Platelets Auto (Bld) [#/Vol]Ordered By: Edenilson Reinoso on 91-69-5282Lbhkygfwx (Bld) [#/Vol]185 10*3/kX418-489MkbmbhbydOhio State East HospitalPotassium [Moles/volume] in Serum or PlasmaOrdered By: Edenilson Reinoso on 05-03-2023 Potassium [Moles/Vol]4.1 mmol/L3.5-5.1FKindred Hospital DaytonProtein Auto test strip (U) [Mass/Vol]Ordered By: Edenilson Reinoso on 56-40-8686Lpqgjkz (U) [Mass/Vol]Trace mg/dLNegativeOhio State East HospitalProtein [Mass/volume] in Serum or PlasmaOrdered By: Edenilson Reinoso on 15-47-1627Bojcloc [Mass/Vol]6.7 g/dL6.4-8.9[facility] HospitalRBC Auto (Bld) [#/Vol] Ordered By: Edenilson Reinoso on 47-06-7946ZOS (Bld) [#/Vol]5.06 10*6/uL3.90-5.60 [facility] Hospitalerum or plasma albumin/globulin mass ratio Ordered By: Edenilson Reinoso on 88-36-7861Pftjnyw/Globulin [Mass ratio]1.9 {ratio} [facility] Hospitalerum or plasma anion gap determinationOrdered By: Edenilson Reinoso on 78-54-8940Aaupo gap [Moles/Vol]13.8 mmol/L6.0-15.0[facility] Hospitalerum or plasma non-glucuronidated bilirubin measurement (mass/volume)Ordered By: Edenilson Reinoso on 14-34-0898Nfdanvbgw.indirect [Mass/Vol]0.8 mg/dLOhioHealth Grady Memorial Hospitalodium [Moles/volume] in Serum or PlasmaOrdered By: Edenilson Reinoso on 40-59-8210Ypkykm [Moles/Vol]136 mmol/Y523-364JekiqjncfOhioHealth Grady Memorial Hospitalpecific gravity Auto test strip (U) [Rel density]Ordered By: Edenilson Reinoso on 94-38-8700Ogsybdmn gravity (U) [Rel density]1.0241.001-1.030[facility] Hospitalquamous epithelial cells detection in urine sediment by light microscopyOrdered By: Edenilson Reinoso on 51-42-6586Yhspvoxsdi cells.squamous LM Ql (Urine sed)None seen [HPF]0-2FKindred Hospital DaytonUrea nitrogen [Mass/volume] in Serum or PlasmaOrdered By: Edenilson Reinoso on 68-86-5389Sfhc nitrogen [Mass/Vol]22 mg/dL 7-25[facility] HospitalUrine bacteria detection by automated methodOrdered By: Edenilson Reinoso on 13-28-4464Wrokevpn Auto Ql (U)None seenNone SeenOhio State East HospitalUrine clarity by refractometry automated Ordered By: Edenilson Reinoso on 37-09-7835Woechcm Refractometry automated (U)Clear ClearOhio State East HospitalUrine glucose measurement by automated test strip (mass/volume)Ordered By: Edenilson Reinoso on 77-69-5265Yeqciil Auto test strip (U) [Mass/Vol]Normal mg/dLNormalOhio State East HospitalUrine hemoglobin detection by automated test stripOrdered By: Edenilson Reinoso on 79-32-2607Onvkryxqxe Auto test strip Ql (U)1+NegativeOhio State East HospitalUrine leukocyte esterase detection by automated test stripOrdered By: Edenilson Reinoso on 58-73-6125Rzmzbrumb esterase Auto test strip Ql (U)1+Negative [facility] HospitalUrobilinogen Auto test strip (U) [Mass/Vol] Ordered By: Edenilson Reinoso on 12-13-5078Dtnytzgsppxs (U) [Mass/Vol]Normal mg/dL NormalOhio State East HospitalWBC Auto (Bld) [#/Vol]Ordered By: Edenilson Reinoso on 80-67-1318EBS (Bld) [#/Vol]13.4 10*3/uL4.1-10.5FKindred Hospital DaytonpH Auto test strip (U)Ordered By: Edenilson Reinoso on 64-10-5097oS (U)5.5 [pH]5.0-9.0[facility] HospitalAlanine aminotransferase [Enzymatic activity/volume] in Serum or PlasmaOrdered By: Sascha Sutton on 52-88-9858BSA [Catalytic activity/Vol]33 U/L7-52[facility] HospitalAlbumin [Mass/volume] in Serum or Plasma by Bromocresol green (BCG) dye binding methoOrdered By: Sascha Sutton on 64-19-3854Iptjxzg BCG dye [Mass/Vol] 4.0 g/dL3.5-5.7FKindred Hospital DaytonAlkaline phosphatase [Enzymatic activity/volume] in Serum or PlasmaOrdered By: Sascha Sutton on 18-14-3183LYD [Catalytic activity/Vol]82 U/R43-474IlisjlciqOhio State East HospitalAspartate aminotransferase [Enzymatic activity/volume] in Serum or PlasmaOrdered By: Sascha Sutton 23-36-0032AAP [Catalytic activity/Vol]19 U/M48-42RsfzeinuhOhio State East HospitalBilirubin.total [Mass/volume] in Serum or PlasmaOrdered By: Sascha Sutton 01-96-9671Lhrauwddb [Mass/Vol]0.8 mg/dL0.3-1.0[facility] HospitalCalcium [Mass/volume] in Serum or PlasmaOrdered By: Sascha Sutton 23-88-1459Etcorqj [Mass/Vol]8.8 mg/dL8.6-10.3FKindred Hospital DaytonCarbon dioxide, total [Moles/volume] in Serum or Plasma Ordered By: Sascha Sutton 90-54-4659JB4 [Moles/Vol]28.1 mmol/L21.0-31.0 [facility] HospitalChloride [Moles/volume] in Serum or Plasma Ordered By: Sascha Sutton 59-10-9807Jtanhdzl [Moles/Vol]107 mmol/L98-107 [facility] HospitalCholesterol [Mass/volume] in Serum or Plasma Ordered By: Sascha Sutton 69-55-5473Qfkpsquydsf [Mass/Vol]119 mg/zF096-932 [facility] HospitalComment on above:Chol less than 200 mg/dl low riskChol 201-239 mg/dl borderline riskChol 240 mg/dl and greater high risk Cholesterol in LDL Calc [Mass/Vol]Ordered By: Sascha Sutton on 04-08-2023 Cholesterol in LDL [Mass/Vol]55 mg/dL0-100[facility] Comment on above:LDL ATP III CLASSIFICATIONLDL less than 100 mg/dL OptimalLDL 100-129 mg/dL Near or above fdnxiayNOR063-889 mg/dL Borderline highLDL 160-189 mg/dL HighLDL greater than 189 mg/dL Very highCholesterol in VLDL Calc [Mass/Vol]Ordered By: Sascha Sutton on 79-41-5066Qwjdfiduguq in VLDL [Mass/Vol] 25 mg/dLOhio State East HospitalCreatinine [Mass/volume] in Serum or PlasmaOrdered By: Sascha Sutton on 46-95-8078Yszxsvulcc [Mass/Vol]0.85 mg/dL 0.70-1.30[facility] HospitalGlobulin Calc (S) [Mass/Vol]Ordered By: Sascha Sutton on 97-55-4173Lrzphckj (S) [Mass/Vol]2.1 g/dLOhio State East HospitalGlucose [Mass/volume] in Serum or PlasmaOrdered By: Sascha Sutton 66-54-3792Tfpydor [Mass/Vol]85 mg/yC57-561RosqeihdyOhio State East HospitalComment on above:ADA recommended reference rangeRandom Glucose Reference Range is dependent on time and content of last meal. Glucose of more than 200 mg/dL in a nonstressed, ambulatory subject supports the diagnosisof Diabetes Mellitus.No Panel InformationOrdered By: Sascha Sutton on 04-08-2023 Estimated GFR (CKD-EPI)> 60.0 mL/MinOhio State East HospitalPharmacy Creatinine Clearance (ChemN/AFKindred Hospital DaytonPotassium [Moles/volume] in Serum or PlasmaOrdered By: Sascha Sutton 04-08-2023 Potassium [Moles/Vol]4.1 mmol/L3.5-5.1FKindred Hospital DaytonProstate specific Ag [Mass/volume] in Serum or PlasmaOrdered By: Sascha Sutton 36-29-8108Wwepslnq specific Ag [Mass/Vol]1.770 ng/mL0.000-4.000[facility] HospitalProtein [Mass/volume] in Serum or PlasmaOrdered By: Sascha Sutton on 03-95-9685Kjyqxcv [Mass/Vol]6.1 g/dL6.4-8.9[facility] Hospitalerum or plasma albumin/globulin mass ratioOrdered By: Sascha Sutton on 73-22-5170Qqzdlqc/Globulin [Mass ratio]1.9 {ratio}[facility] Hospitalerum or plasma anion gap determinationOrdered By: Sascha Sutton 31-57-4899Ywywp gap [Moles/Vol]9.0 mmol/L6.0-15.0[facility] Hospitalerum or plasma high density lipoprotein (HDL) cholesterol measurement Ordered By: Sascha Sutton 39-22-7900Oldarghdmmz in HDL [Mass/Vol]39 mg/dL 29-71[facility] HospitalComment on above:HDL CHOL ATP-III CLASSIFICATION Cardiovascular RiskHDL > or equal to 60 mg/dL LOWHDL < 40 mg/dL HIGHSerum or plasma total cholesterol/high density lipoprotein (HDL) cholesterol mass ratOrdered By: Sascha Sutton 43-94-3257Jxxhquytunr.total/Cholesterol in HDL [Mass ratio]3.1 {ratio}<5.0[facility] Hospitalodium [Moles/volume] in Serum or PlasmaOrdered By: Sascha Sutton 21-70-8324Adgquc [Moles/Vol]140 mmol/L900-310KhcgplpcgOhio State East HospitalTriglyceride [Mass/volume] in Serum or PlasmaOrdered By: Sascha Sutton on 04-08-2023 Triglyceride [Mass/Vol]125 mg/dL0-149[facility] HospitalComment on above:TRIG ATP III CLASSIFICATIONTRIG less than 150 mg/dL NormalTRIG 150-199 mg/dL Borderline highTRIG 200-500 mg/dL High TRIG greater than 500 mg/dL Very highStandard traceable to the Center for Disease Conrtrol and Prevention (CDC) test method.Urea nitrogen [Mass/volume] in Serum or PlasmaOrdered By: Sascha Sutton 84-48-7170Qovq nitrogen [Mass/Vol]17 mg/dL7-25[facility] HospitalActivated partial thromboplastin time (aPTT) in platelet poor plasma by coagulation aOrdered By: Melanie Trujillo on 34-86-8386fCPC Coag (PPP) [Time] 39.0 s25.1-36.5FKindred Hospital DaytonBasophils Auto (Bld) [#/Vol] Ordered By: Melanie Trujillo on 71-89-1804Kitimckjz (Bld) [#/Vol]0.0 10*3/uL0.0-0.2 [facility] HospitalBasophils/100 WBC Auto (Bld)Ordered By: Melanie Trujillo on 48-71-6148Efyvfopmx/100 WBC (Bld)0.6 %.[facility] HospitalCarbon dioxide, total [Moles/volume] in Serum or PlasmaOrdered By: Melanie Trujillo on 29-56-3492LX1 [Moles/Vol]26.4 mmol/L21.0-31.0[facility] HospitalChloride [Moles/volume] in Serum or PlasmaOrdered By: Melanie Trujillo on 41-25-1656Ebsdquva [Moles/Vol]106 mmol/J81-795FdzciwmviOhio State East Hospital Cholesterol [Mass/volume] in Serum or PlasmaOrdered By: Melanie Trujillo on 03-31-2023 Cholesterol [Mass/Vol]132 mg/vP068-385KuefnaspzOhio State East HospitalComment on above:Chol less than 200 mg/dl low riskChol 201-239 mg/dl borderline riskChol 240 mg/dl and greater high riskCholesterol in LDL Calc [Mass/Vol]Ordered By: Melanie Trujillo on 86-04-1330Nuemraczwnb in LDL [Mass/Vol]71 mg/dL0-100[facility] HospitalComment on above:LDL ATP III CLASSIFICATIONLDL less than 100 mg/dL OptimalLDL 100-129 mg/dL Near or above lyrxmhmHAG897-212 mg/dL Borderline highLDL 160-189 mg/dL HighLDL greater than 189 mg/dL Very high Cholesterol in VLDL Calc [Mass/Vol]Ordered By: Melanie Trujillo on 03-31-2023 Cholesterol in VLDL [Mass/Vol]21 mg/dL[facility] Creatinine [Mass/volume] in Serum or PlasmaOrdered By: Melanie Trujillo on 03-31-2023 Creatinine [Mass/Vol]0.88 mg/dL0.70-1.30[facility] Eosinophils Auto (Bld) [#/Vol]Ordered By: Melanie Trujillo on 46-57-1178Lllnwuhsagc (Bld) [#/Vol]0.1 10*3/uL0.0-0.45[facility] HospitalEosinophils/100 WBC Auto (Bld)Ordered By: Melanie Trujillo on 08-66-6732Atwziutakqd/100 WBC (Bld)1.6 % .[facility] HospitalErythrocyte distribution width Auto (RBC) [Ratio]Ordered By: Melanie Trujillo on 75-27-7836Glpdmbnrazc distribution width (RBC) [Ratio]14.5 %12.0-14.8[facility] HospitalHematocrit Auto (Bld) [Volume fraction]Ordered By: Melanie Trujillo on 79-70-1894Khgzlvudgf (Bld) [Volume fraction]46.7 %38.8-50.0[facility] HospitalHemoglobin [Mass/volume] in BloodOrdered By: Melanie Trujillo on 41-88-0101Dnjpinfcsf (Bld) [Mass/Vol]16.0 g/dL13.0-17.0[facility] HospitalLaboratory - Chemistry and Chemistry - challengeon 35-47-0617Uiodtqipoay [Mass/Vol]132\S\132 below low -840RI-[facility]vxdk[facility] 250 DO Work Phone: Comment on above:Chol less than 200 mg/dl low risk Chol 201-239 mg/dl borderline risk Chol 240 mg/dl and greater high risk Cholesterol in LDL [Mass/Vol]71\S\52Oqydjm1-745AX-LjbcaAppleton Municipal Hospital 250 DO Work Phone: Comment on above:LDL ATP III CLASSIFICATION LDL less than 100 mg/dL Optimal LDL 100-129 mg/dL Near or above optimal LDL 130-159 mg/dL Borderline high LDL 160-189 mg/dL High LDL greater than 189 mg/dL Very high Laboratory - CoagulationOrdered By: Melanie Trujillo on 31-80-7947KJ Coag (PPP) [Time] 12.3 s9.0-12.9[facility] HospitalLeukocytes [#/volume] corrected for nucleated erythrocytes in Blood by Automated counOrdered By: Melanie Trujillo on 13-03-8446PPR corrected for nucl RBC Auto (Bld) [#/Vol]5.7 10*3/uL4.1-10.5 [facility] HospitalLymphocytes Auto (Bld) [#/Vol]Ordered By: Melanie Trujillo on 00-19-3409Fdwghvyxpdo (Bld) [#/Vol]0.8 10*3/uL1.00-4.8[facility] HospitalLymphocytes/100 WBC Auto (Bld)Ordered By: Melanie Trujillo on 11-35-2232Istptqjwuox/100 WBC (Bld)13.8 %.[facility] Auto (RBC) [Entitic mass]Ordered By: Melanie Trujillo on 82-70-2895BMY (RBC) [Entitic mass]30.4 pg27.5-35.2FKindred Hospital DaytonMCHC Auto (RBC) [Mass/Vol] Ordered By: Melanie Trujillo on 37-95-8204FVTN (RBC) [Mass/Vol]34.2 g/dL32.5-35.6 [place] [facility] HospitalMCV Auto (RBC) [Entitic vol]Ordered By: Melanie Trujillo on 56-49-1764EZM (RBC) [Entitic vol]89.0 fL83.5-101[facility] HospitalMonocytes Auto (Bld) [#/Vol]Ordered By: Melanie Trujillo on 03-31-2023 Monocytes (Bld) [#/Vol]0.8 10*3/uL0.0-0.8[facility] Monocytes/100 WBC Auto (Bld)Ordered By: Melanie Trujillo on 10-80-0026Iobydeilu/100 WBC (Bld)13.9 %.[facility] HospitalNeutrophils Auto (Bld) [#/Vol] Ordered By: Melanie Trujillo on 88-77-4040Zxbzwfmvaxn (Bld) [#/Vol]4.0 10*3/uL1.8-7.7 [place] [facility] HospitalNeutrophils/100 WBC Auto (Bld)Ordered By: Melanie Trujillo on 90-72-0829Kfbkgpplfbh/100 WBC (Bld)70.1 %.[facility] HospitalNo Panel InformationOrdered By: Melanie Trujillo on 79-08-1409Wgqgnqvke GFR (CKD-EPI)> 60.0 mL/MinOhio State East HospitalPharmacy Creatinine Clearance (ChemN/AFKindred Hospital DaytonNo Panel Informationon 80-26-019580.7\S\10.1Nbncdl5.0-15.0MP-[facility] 250 DO Work Phone: [phone]\S\26.2Vpiflr27.0-31.0MP-[facility] 250 DO Work Phone: [phone]\S\114Cgyglq6-147WF-Ujkum [place] [facility] 250 DO Work Phone: Comment on above:TRIG ATP III CLASSIFICATION TRIG less than 150 mg/dL Normal TRIG 150-199 mg/dL Borderline high VHYY869-448 mg/dL High TRIG greater than 500 mg/dL Very high Standard traceable to the Center for Disease Conrtrol and Prevention (CDC) test method.4.1\S\4.5Kngxlm0.5-5.1MP-[facility] 250 DO Work Phone: [phone]\S\700Ocnndi928-146HN-Dyvhh [place] [facility] 250 DO Work Phone: [phone]\S\64Cvbxyj5-33ED-Cpzme [place] [facility] 250 DO Work Phone: > 60.0NormalMP-[facility] 250 DO Work Phone: [phone]\S\0.81Mabwqo7.70-1.30MP-[facility] 250 DO Work Phone: [phone]\S\3.3Normal<5.0MP-[facility] 250 DO Work Phone: Comment on above:PERFORMED BY:[facility] [place], [place] [phone] MEDICAL DIRECTOROLMAN ALABRRAN M.D.21\S\21NormalMP-[facility] 250 DO Work Phone: [phone]\S\83Shvvxm37-91XI-Pctfy [place] [facility] 250 DO Work Phone: Comment on above:HDL CHOL ATP-III CLASSIFICATION Cardiovascular Risk HDL > or equal to 60 mg/dL LOW HDL < 40 mg/dL HIGH0.0\S\0.0 Normal0.0-0.2MP-[facility] 250 DO Work Phone: Comment on above:PERFORMED BY:[facility] [place], [place] [phone] MEDICAL DIRECTOROLMAN ALBARRAN M.D.0.1\S\0.2Ikowuk0-8.5MP-[facility] 250 DO Work Phone: [phone]\S\0.8below low threshold1.00-4.8MP-[facility] 250 DO Work Phone: [phone]\S\4.1Clmtkh5.8-7.7MP-[facility] 250 DO Work Phone: [phone]\S\0.6Normal.MP-[facility] 250 DO Work Phone: [phone]\S\1.6Normal.MP-[facility] 250 DO Work Phone: [phone]\S\13.9Normal.MP-[facility] 250 DO Work Phone: [phone]\S\13.8Normal.MP-[facility] 250 DO Work Phone: [phone]\S\70.1Normal.MP-[facility] 250 DO Work Phone: [phone]\S\8.1Czonra4.6-10.1MP-[facility] 250 DO Work Phone: [phone]\S\660Rolirq081-196CJ-Mhewx [place] [facility] 250 DO Work Phone: [phone]\S\14.2Layibo16.0-14.8MP-[facility] 250 DO Work Phone: [phone]\S\34.6Blypxa12.5-35.6MP-[facility] 250 DO Work Phone: [phone]\S\30.1Vtquko45.5-35.2MP-[facility] 250 DO Work Phone: [phone]\S\89.0Gfyraf44.1-671NV-Vpxge [place] [facility] 250 DO Work Phone: [phone]\S\46.4Rgblnu24.8-50.0MP-[facility] 250 DO Work Phone: [phone]\S\16.1Nykivr96.0-17.0MP-[facility] 250 DO Work Phone: [phone]\S\5.78Whwhih1.90-5.60MP-[facility] 250 DO Work Phone: [phone]\S\5.8Bnizfw9.1-10.5MP-[facility] 250 DO Work Phone: [phone]\S\39.0above high ruccmisow66.1-36.5MP-[facility] 250 DO Work Phone: [phone] on above:PERFORMED BY:[place] [address] [place], [place] [phone] MEDICAL DIRECTORJIANLAN SUN M.D.1.1\S\1.1NormalMP-[facility] 250 DO Work Phone: Comment on above:INR Therapeutic Range A) Pre- and Peroperative OAT started two weeks before surgery. NOT HIP SURGERY: 1.5 - 2.5 HIP SURGERY: 2 - 3 B) Primary and secondary prevention of venous THROMBOSIS: 2 - 3 C) Active venous thrombosis, pulmonary embolism and prevention of recurrent venous thrombosis: 2 - 3 D) Prevention of arterial thromboembolism including patients with mechanical heart valves: 3 - 4.512.3\S\12.6Ijmopg8.0-12.9[facility] DO Work Phone: Nucleated erythrocytes [Presence] in Blood by Automated countOrdered By: Melanie Trujillo on 63-45-2972Skawqafri RBC Auto Ql (Bld)0.1 /100{WBC}0-0.5FKindred Hospital DaytonPlatelet mean volume Auto (Bld) [Entitic vol]Ordered By: Melanie Trujillo on 75-07-5421Zworcstx mean volume (Bld) [Entitic vol]8.4 fL6.6-10.1FKindred Hospital DaytonPlatelet poor plasma international normalized ratio (INR) by coagulation assay (relatOrdered By: Melanie Trujillo on 10-79-9199DDE Coag (PPP) [Relative time]1.1 {INR}[facility] HospitalComment on above:INR Therapeutic Range A) Pre- and Peroperative OAT started two weeks before surgery. NOT HIP SURGERY: 1.5 - 2.5 HIP SURGERY: 2 - 3B) Primary and secondary prevention of venous THROMBOSIS: 2 - 3C) Active venous thrombosis, pulmonary embolismand prevention of recurrent venous thrombosis: 2 - 3D) Prevention of arterial thromboembolismincluding patients with mechanical heart valves: 3 - 4.5Platelets Auto (Bld) [#/Vol]Ordered By: Melanie Trujillo on 71-40-7242Ksoadtxkf (Bld) [#/Vol]180 10*3/zA748-047EpduwnaajOhio State East HospitalPotassium [Moles/volume] in Serum or PlasmaOrdered By: Melanie Trujillo on 68-87-3353Vsnhstdiu [Moles/Vol]4.1 mmol/L3.5-5.1FKindred Hospital DaytonRBC Auto (Bld) [#/Vol]Ordered By: Melanie Trujillo on 96-18-6132UQR (Bld) [#/Vol] 5.24 10*6/uL3.90-5.60[facility] Hospitalerum or plasma anion gap determinationOrdered By: Melanie Trujillo on 76-99-5551Abqaw gap [Moles/Vol]10.7 mmol/L 6.0-15.0[facility] Hospitalerum or plasma high density lipoprotein (HDL) cholesterol measurementOrdered By: Melanie Trujillo on 03-31-2023 Cholesterol in HDL [Mass/Vol]40 mg/vT54-14YwoonuwzdOhio State East Hospital Comment on above:HDL CHOL ATP-III CLASSIFICATION Cardiovascular RiskHDL > or equal to 60 mg/dL LOWHDL < 40 mg/dL HIGHSerum or plasma total cholesterol/high density lipoprotein (HDL) cholesterol mass ratOrdered By: Melanie Trujillo on 91-24-6389Tnpsslvxsom.total/Cholesterol in HDL [Mass ratio]3.3 {ratio}<5.0 [facility] Hospitalodium [Moles/volume] in Serum or PlasmaOrdered By: Melanie Trujillo on 54-90-9265Whyeem [Moles/Vol]139 mmol/S867-297RwurcfxtoOhio State East HospitalTriglyceride [Mass/volume] in Serum or PlasmaOrdered By: Melanie Trujillo on 34-22-7089Axlryuaoodbv [Mass/Vol]106 mg/dL0-149[facility] HospitalComment on above:TRIG ATP III CLASSIFICATIONTRIG less than 150 mg/dL NormalTRIG 150-199 mg/dL Borderline highTRIG 200-500 mg/dL High TRIG greater than 500 mg/dL Very highStandard traceable to the Center for Disease Co nrtrol and Prevention (CDC) test method.Urea nitrogen [Mass/volume] in Serum or PlasmaOrdered By: Melanie Trujillo on 88-95-7436Vbwn nitrogen [Mass/Vol]23 mg/dL7-25 [facility] HospitalWBC Auto (Bld) [#/Vol]Ordered By: Melanie Trujillo on 81-82-9605EQJ (Bld) [#/Vol]5.7 10*3/uL4.1-10.5[facility] Office Visit (Cardiology)on 81-22-5702Akjrlf-up visitDiagnoses/Problems Assessed Chest pain (786.50) (R07.9) SOB (shortness [...] Cardiac Catherization; Status:Active - Retrospective Authorization; Requested for:[id number]; Chest pain, Hypertension, SOB (shortness of breath) on exertion IO EKG Electrocardiogram- 12 Lead; Status:Complete; Done: [id number] Class 1 obesity with body mass index (BMI) of 32.0 to 32.9 in adult Healthy Weight Tips; Status:Complete - Retrospective Authorization; Done: [id number] Some eating tips that can help you lose weight.; Status:Complete - Retrospective Authorization; Done: [id number] Hyperlipemia Renew: Aspirin 325 MG Oral Tablet [...] and right neck radiation that occurred at [facility] this past Tuesday with subsequent stress imaging performed after he was admitted at [facility] that was reportedly unremarkable. Patient has since [...] chronic wehave no old ECGs to compare. Informed decision-making [...] MG Oral TabletTAKE 1 TABLET ONCE WEEKLY Lisinopril-hydroCHLOROthiazide 20-12.5 MG Oral TabletTAKE 1 TABLET DAILY. [...] times daily Allergies Medication (more content not included)...NormalUH TouchworksTobacco Screening.on 03-30-2023 Adult depression screening assessmentNo-[facility] 250 DO Work Phone: Fall risk assessmenta) No falls within the last year -[facility] 250 DO Work Phone: Tobacco use status CPHSb) NoM-[facility] [employer] 250 DO Work Phone: ECHOCARDIO M/2D COMPLETEon 50-53-9022HXQYSQWTXJ M/2D COMPLETEPatient: VALENTIN TORRERigo Exam Date: 03/21/2023 : 1955 Gender:M Ordering : SHAIKH Pee MULTANI . Admission #: [id number] Family : DR SASCHA SUTTON Order #: [id number] CLICK HERE TO VIEW EXAM ECHOCARDIOGRAM REPORT [...] Area (VTI): 3.04 cm2, 3.04 cm2 Deceleration Wilkin: 0.56 m/s2 Pressure Half-Time: 991.91 ms Peak [...] by: Kael Huynh M.D. on 03/24/2023 at 12:21[facility] STRESS/REST MULTIon 60-56-0552BR STRESS/REST MULTIPatient: VALENTIN TORRE Exam Date: 03/21/2023 : 1955 Gender:M Ordering : SHAIKH Pee MULTANI . Admission #: [id number] Family : Order #: [id number] CLICK HERE TO VIEW EXAM RADIOLOGY REPORT [...] by: Primo Gale M.D. on 03/22/2023 at 11:30NoUniversity Hospitals Ahuja Medical CenterOPONIN, HIGH SENSITIVITYon 39-80-1070ZBHWBI82.1 pg/mLNormal4.0-76.1The [facility] HospitalComment on above:Result Comment: CUT-OFF POINTS HAVE BEEN ESTABLISHED BASED ON THE FOURTH UNIVERSAL DEFINITIONS OF MYOCARDIAL INFARCTION. THE UPPER REFERENCE LIMIT (URL) OF TROPONIN, DEFINED THE 99TH PERCENTILE OF cTnI DISTRIBUTION IN A REFERENCE POPULATION, HAS BEEN CONFIRMED THE DECISION THRESHOLD FOR RI DIAGNOSIS.Performed By: #### HSTROPN ####[facility] [address] [address]DrRigo Cloud 96-74-2974Zcwpdpjyinn peptide B (Bld) [Mass/Vol]47.0 pg/mLNormal<=900.0The [facility] HospitalComment on above:Performed By: #### BNP, CMP, CMADM #### [facility] [address] [address] [address] Jo WOLFE ADMITon 76-84-2933GT [Catalytic activity/Vol]149 U/L Bhniih79-132Ahl [facility] HospitalComment on above:Performed By: #### BNP, CMP, CMADM ####[facility] [address] [address]Dr. Jo TatumMB [Mass/Vol]1.51 ng/mLNormal<=3.60The [facility] Comment on above:Performed By: #### BNP, CMP, CMADM ####[facility] [address] [address]DrRigo GuoOP14.8 pg/mLNormal4.0-76.1The [facility] HospitalComment on above:Result Comment: CUT-OFF POINTS HAVE BEEN ESTABLISHED BASED ON THE FOURTH UNIVERSAL DEFINITIONS OF MY OCARDIAL INFARCTION. THE UPPER REFERENCE LIMIT (URL) OF TROPONIN, DEFINED THE 99TH PERCENTILE OF cTnI DISTRIBUTION IN A REFERENCE POPULATION, HAS BEEN CONFIRMED THE DECISION THRESHOLD FOR RI DIAGNOSIS.Performed By: #### BNP, CMP, CMADM ####[facility] [address] [address]Dr. Jo De DiosMYO55 ng/mL Rorlfq15-07Tzz [facility] HospitalComment on above:Performed By: #### BNP, CMP, CMADM ####[facility] [address] [address]Dr. Jo WagnerC AUTO DIFFon 10-80-4971XHGL #0.0 103/ulNormal0.0-0.1The [facility] HospitalComment on above:Performed By: #### CBC #### [facility] [address] [address] [address] Jo De DiosBasophils/100 WBC (Bld)0.7 %Normal0.2-2.0[facility] Comment on above:Performed By: #### CBC #### [facility] [address] [address] [address] Jo Jimenez #0.1 103/ulNormal0.0-0.7The [facility] HospitalComment on above: Performed By: #### CBC #### [facility] [address] [address] [address] Jo Gonzalezosinophils/100 WBC (Bld)1.5 %Normal0.9-7.0The [facility] Comment on above:Performed By: #### CBC #### [facility] [address] [address] [address] Jo Gonzalezrythrocyte distribution width (RBC) [Ratio]14.3 %Dqinom93.0-15.0 The [facility] HospitalComment on above:Performed By: #### CBC #### [facility] [address] [address] [address] Jo De DiosHematocrit (Bld) [Volume fraction]46.1 %Woenzn70.0-54.0The [facility] HospitalComment on above:Performed By: #### CBC #### [facility] [address] [address] [address] Jo De DiosHemoglobin (Bld) [Mass/Vol]15.9 g/oFNzdmux64.0-18.0The [facility] HospitalComment on above:Performed By: #### CBC #### [facility] [address] [place] [address] Dr. Jo Chu #0.03 10e3/ulNormal0.00-0.03The [facility] HospitalComment on above:Performed By: #### CBC #### [facility] [address] [place] [address] Dr. Jo Cuh %0.5 %Normal0.0-0.5The [facility] HospitalComment on above: Performed By: #### CBC #### [facility] [address] [place] [address] Dr. Jo Stock #0.8 103/ulCritically low1.2-3.8The [facility] Comment on above:Performed By: #### CBC #### [facility] [address] [place] [address] Dr. Jo Fortehocytes/100 WBC (Bld)12.6 %Critically low20.5-60.0The [facility] HospitalComment on above:Performed By: #### CBC #### [facility] [address] [place] [address] Dr. Jo MoranUAL DIFF REQNONormalThe [facility] HospitalComment on above: Performed By: #### CBC #### [facility] [address] [place] [address] Dr. Jo Little (RBC) [Entitic mass]30.1 mwWypnyu26.9-34.0The [facility] HospitalComment on above:Performed By: #### CBC #### [facility] [address] [place] [address] Dr. Jo Little (RBC) [Mass/Vol]34.5 g/cETiktfa29.9-35.2The [facility] HospitalComment on above:Performed By: #### CBC #### [facility] [address] [place] [address] Dr. Jo LittleV (RBC) [Entitic vol]87.1 xZVgyxcw85.0-94.0The [facility] Hospitalment on above:Performed By: #### CBC #### [facility] [address] [place] [address] Dr. Jo Rubio #0.8 103/ulNormal0.3-0.8The [facility] HospitalComment on above:Performed By: #### CBC #### [facility] [address] [place] [address] Dr. Jo Silverioocytes/100 WBC (Bld)13.7 %Critically high1.7-12.0The [facility] HospitalComment on above:Performed By: #### CBC #### [facility] [address] [place] [address] Dr. Jo Damon #4.4 103/ulNormal1.4-6.5The [facility] HospitalComment on above:Performed By: #### CBC #### [facility] [address] [place] [address] Dr. Jo Mckeeutrophils/100 WBC (Bld)71.0 %Fldrha97.0-75.0The [facility] HospitalComment on above:Performed By: #### CBC #### [facility] [address] [place] [address] Dr. Jo Nicolelet mean volume (Bld) [Entitic vol]9.8 fLNormal9.5-13.5The [facility] HospitalComment on above:Performed By: #### CBC #### [facility] [address] [place] [address] Dr. Jo De DiosPLT179 103/plNnznrk988-825[facility] on above: Performed By: #### CBC #### [facility] [address] [place] [address] Dr. Jo De DiosRBC5.29 106/ulNormal4.70-6.10The [facility] HospitalComment on above:Performed By: #### CBC #### [facility] [address] [address] [address] Jo De DiosWBC6.1 103/ulNormal4.0-11.0The [facility] HospitalComment on above: Performed By: #### CBC #### [facility] [address] [address] [address] Jo Mcpherson CHEST WO W CONon 62-04-4339TMJ CHEST WO W CONEXAM: CTA CHEST WO W CON COMPARISON: None [...] Electronically authenticated by: ROBERTA WOOD Date: 2023-03-20 16:10[facility] CenterD-DIMERon 97-34-7110R-DIMER0.60 mg/L FEUCritically high<=0.59 The [facility] HospitalComment on above:Performed By: #### DDIM ####[facility] [address] [place], [place] [address]YsDr. Jo De DiosD- DIMER COMMENTSSEE BELOWSycamore Medical CenterComment on above:Result Comment: Increases in D-Dimer concentration observed with thromboembolic events [...] stress, and generalized hospitalization. Performed By: #### DDIM ####[facility] [address] [address]Dr. Jo Beckett URINE PROFILEon 42-17-4632Gjtmovnlf Ql (U)NegativeNormalNEGATIVESalem Regional Medical CenterComment on above:Performed By: #### ERUR #### [facility] [address] [place] [address] Dr. Jo Candelariaarity (U)CLEARNormalCLEARSalem Regional Medical CenterComment on above: Performed By: #### ERUR #### [facility] [address] [place] [address] Dr. Jo Yip (U)LT. YELLOWNormalYELLOWSalem Regional Medical CenterComascension standish hospital on above:Performed By: #### ERUR #### [facility] [address] [place] [address] Dr. Jo Stout micrscopic examination will be performed if indicated. NormalMetroHealth Main Campus Medical Center on above:Performed By: #### ERUR #### [facility] [address] [place] [address] Dr. Jo De DiosGlucose Ql (U)NegativeNormalNEGATIVEMarietta Memorial Hospitalment on above:Performed By: #### ERUR #### [facility] [address] [place] [address] Dr. Jo De DiosHemoglobin Ql (U)NegativeNormalNEGMercer County Community Hospital on above:Performed By: #### ERUR #### [facility] [address] [place] [address] Dr. Jo De DiosKetones Ql (U)NegativeNormalNEGATIVEMarietta Memorial Hospitalment on above:Performed By: #### ERUR #### [facility] [address] [address] [address] Jo De DiosLEUKOCYTESNegativeNormalNEGATIVEThe [facility] HospitalComment on above:Performed By: #### ERUR #### [facility] [address] [place] [address] Dr. Jo Suazotrite Ql (U)NegativeNormalNEGATIVEThe [facility] HospitalComment on above:Performed By: #### ERUR #### [facility] [address] [place] [address] Dr. Jo De DiospH (U)5.0 [pH]Normal5-9The [facility] HospitalComment on above: Performed By: #### ERUR #### [facility] [address] [place] [address] Dr. Jo De DiosSPEC GRAVITY1.849Dylvrz6.005-<=1.025The [facility] HospitalComment on above:Performed By: #### ERUR #### [facility] [address] [place] [address] Dr. Jo Katz PROTEINNegativeNormalNEGATIVE/ TRACEThe [facility] Comment on above:Performed By: #### ERUR #### [facility] [address] [place] [address] Dr. Jo Chambers MICRO INDNOT INDICATEDNormalThe [facility] HospitalComment on above:Performed By: #### ERUR #### [facility] [address] [place] [address] Dr. Jo De DiosUrobilinogen Qn (U)0.2 {Carrie'U}/dLNormal0.2 - 1.0[facility] Medical CenterComment on above:Performed By: #### ERUR #### [facility] [address] [place] [address] Dr. Jo De DiosGLYCOHEMOGLOBIN A1Con 94-43-3686RJU RECOMMENDATIONSEE BELOWNormal The [facility] HospitalComment on above:Result Comment: ADA RECOMMENDED LIMIT 4.0 - 6.0 ADA THERAPEUTIC TARGET < 7.0 ACTION SUGGESTED > 7.0Performed By: #### A1C #### [facility] [address] [address] [address] Jo De DiosGlucose [Mass/Vol]103 mg/dLNoAvita Health System Galion HospitalComment on above:Performed By: #### A1C #### [facility] [address] [address] [address] Jo De DiosHbA1c (Bld) [Mass fraction]5.2 %Normal4.5-6.2The [facility] HospitalComment on above:Performed By: #### A1C #### [facility] [address] [place] [address] Dr. Jo NevilleID PROFILEon [id number]-HDL RATIO NORMSEE [facility] CenterCom[facility] on above:Result Comment: 3.3 - 4.4 LOW RISK 4.4 - 7.1 AVERAGE RISK 7.1 - 11.0 MODERATE RISK >11.0 HIGH RISKPerformed By: #### LIPID #### [facility] [address] [place] [address] Dr. Jo Palomaresesterol [Mass/Vol]132 mg/dLNormal<=200The [facility] Comment on above:Performed By: #### LIPID #### [facility] [address] [place] [address] Dr. Jo Palomaresesterol in HDL [Mass/Vol]46 mg/gCYaqnbe23-52Gcx [facility] HospitalCom[facility] on above:Performed By: #### LIPID #### [facility] [address] [place] [address] Dr. Jo Palomaresesterol in LDL [Mass/Vol]69.4 mg/dLSycamore Medical CenterComascension standish hospital on above:Performed By: #### LIPID #### [facility] [address] [place] [address] Dr. Jo Palomaresestercleopatra.total/Cholesterol in HDL [Mass ratio]2.9 {ratio} NormalThe [facility] HospitalComment on above:Performed By: #### LIPID #### [facility] [address] [place] [address] Dr. Jo De DiosHDL NORMAL> or = 60 mg/dl - LOW CARDIOVASCULAR RISK <40 mg/dl - HIGH CARDIOVASCULAR RISKSycamore Medical CenterComment on above:Performed By: #### LIPID #### [facility] [address] [address] [address] Jo Martinez CALC NORMALSEE BELOWSycamore Medical CenterComment on above:Result Comment: <100 mg/dl OPTIMAL 100 - 129 mg/dl NEAR OR ABOVE OPTIMAL 130 - 159 mg/dl BORDERLINE HIGH 160 - 189 mg/dl HIGH >190 mg/dl VERY HIGH Performed By: #### LIPID #### [facility] [address] [address] [address] Jo De DiosTriglyceride [Mass/Vol]83 mg/dLNormal<=150The [facility] Comment on above:Performed By: #### LIPID #### [facility] [address] [address] [address] Jo OgdenLDL CALC16.6 mg/dLNoAvita Health System Galion HospitalComment on above: Performed By: #### LIPID #### [facility] [address] [place] [address] Dr. Jo De DiosPROF 14(COMP METB)on 33-04-1072Ukbxodu [Mass/Vol]3.7 g/dLNormal 3.4-5.0The [facility] HospitalComment on above:Performed By: #### BNP, CMP, CMADM #### [facility] [address] [address] [address] Jo De DiosAlbumin/Globulin [Mass ratio]1.1 {ratio}NormalThe [facility] HospitalComment on above:Performed By: #### BNP, CMP, CMADM #### [facility] [address] [address] [address] Jo Segovia [Catalytic activity/Vol]96 U/ATlazwv02-256Cqa [facility] HospitalComment on above:Performed By: #### BNP, CMP, CMADM #### [facility] [address] [address] [address] Jo Hicks [Catalytic activity/Vol]41 U/DJpffga33-58Xvf Dennise HospitalComment on above:Performed By: #### BNP, CMP, CMADM #### [facility] [address] [address] [address] Jo Cheemaon gap [Moles/Vol]11.2 mmol/LNormalSalem Regional Medical Center Comment on above:Performed By: #### BNP, CMP, CMADM #### [facility] [address] [address] [address] Jo De DiosAST [Catalytic activity/Vol]25 U/KPvsaiv21-41Wpg [facility] HospitalComment on above:Performed By: #### BNP, CMP, CMADM #### [facility] [address] [address] [address] Jo De DiosBilirubin [Mass/Vol]0.8 mg/dLNormal0.2-1.0[facility] Comment on above:Performed By: #### BNP, CMP, CMADM #### [facility] [address] [place] [address] Dr. Jo De DiosCalcium [Mass/Vol]8.8 mg/dLNormal8.5-10.1[facility] Comment on above:Performed By: #### BNP, CMP, CMADM #### [facility] [address] [place] [address] Dr. Jo De DiosChloride [Moles/Vol]109 mmol/LCritically xkpi57-134Rsk [facility] HospitalComment on above:Performed By: #### BNP, CMP, CMADM #### [facility] [address] [address] [address] Jo De DiosCO2 [Moles/Vol]23.4 mmol/XKkesxo49.0-32.0[facility] Comment on above:Performed By: #### BNP, CMP, CMADM #### [facility] [address] [place] [address] Dr. Jo De iDosCreatinine [Mass/Vol]0.84 mg/dLNormal0.70-1.30The [facility] HospitalComment on above:Performed By: #### BNP, CMP, CMADM #### [facility] [address] [address] [address] Jo GonzalezGFR-AF SCOTTISH>60Normal>=60The [facility] HospitalComment on above:Performed By: #### BNP, CMP, CMADM #### [facility] [address] [address] [address] Jo GonzalezGFR-NON AF SCOTTISH>60Normal>=60The [facility] HospitalComment on above:Performed By: #### BNP, CMP, CMADM #### [facility] [address] [address] [address] Jo De DiosGlobulin (S) [Mass/Vol]3.3 g/dLNormalThe [facility] HospitalComment on above:Performed By: #### BNP, CMP, CMADM #### [facility] [address] [address] [address] Jo De DiosGlucose [Mass/Vol]96 mg/rBWporar60-646GbkSalem Regional Medical Center Comment on above:Performed By: #### BNP, CMP, CMADM #### [facility] [address] [address] [address] Jo De DiosPotassium [Moles/Vol]3.6 mmol/LNormal3.5-5.1The [facility] Comment on above:Performed By: #### BNP, CMP, CMADM #### [facility] [address] [address] [address] oJ De DiosProtein [Mass/Vol]7.0 g/dLNormal6.4-8.2[facility] Comment on above:Performed By: #### BNP, CMP, CMADM #### [facility] [address] [address] [address] Jo De DiosSodium [Moles/Vol]140 mmol/EDmgmbq437-060Jkn [facility] Comment on above:Performed By: #### BNP, CMP, CMADM #### [facility] [address] [address] [address] Jo De DiosUrea nitrogen [Mass/Vol]21.0 mg/dLCritically high7.0-18.0The [facility] HospitalComment on above:Performed By: #### BNP, CMP, CMADM #### [facility] [address] [address] [address] Jo Spain nitrogen/Creatinine [Mass ratio]25.0 mg/mgNoAvita Health System Galion HospitalComment on above:Performed By: #### BNP, CMP, CMADM #### [facility] [address] [address] [address] Jo De DiosPROTIMEon 77-29-1323JGY Coag (PPP) [Relative time]0.96 {INR} NormalThe [facility] on above:Performed By: #### PT, PTT ####[facility] [address] [address]. Jo Sharma GUIDELINESSEE BELOWSycamore Medical CenterComment on above: Result Comment: DESIRED INR: 2.0 - 3.0 CONDITIONS NOT LISTED BELOW 2.5 - 3.5 FOR PROSTHETIC HEART VALVE REPLACEMENT 2.5 - 3.5 RECURRENT THROMBOSISPerformed By: #### PT, PTT ####[facility] [address] [address]DrRigo De DiosPT Coag (PPP) [Time]10.2 sNormal9.0-11.6The [facility] City Hospitalment on above:Performed By: #### PT, PTT ####[facility] [address] [address]DrRigo De DiosPTTon 62-80-1104nVJE Coag (Bld) [Time]30.0 oNhejiq64.3-36.2The [facility] Comment on above:Performed By: #### PT, PTT ####[facility] [address] [address]DrRigo Bill HIGH SENSITIVITYon 63-86-9522CGJXXM49.2 pg/mLNormal4.0-76.1[facility] on above: Result Comment: CUT-OFF POINTS HAVE BEEN ESTABLISHED BASED ON THE FOURTH UNIVERSAL DEFINITIONS OF MYOCARDIAL INFARCTION. THE UPPER REFERENCE LIMIT (URL) OF TROPONIN, DEFINED THE 99TH PERCENTILE OF cTnI DISTRIBUTION IN A REFERENCE POPULATION, HAS BEEN CONFIRMED THE DECISION THRESHOLD FOR RI DIAGNOSIS.Performed By: #### HSTROPN ####[facility] [address] [place], [place] [address]Lm. Jo De DiosXR CHEST 1 Von 95-55-4467HY CHEST 1 VEXAM: XR CHEST 1 V HISTORY: Chest pain; [...] Electronically authenticated by: GAVIN MINER Date: 2023-03-20 12:56Sycamore Medical CenterAlanine aminotransferase [Enzymatic activity/volume] in Serum or PlasmaOrdered By: Christine Sanchez on 67-11-2630HCK [Catalytic activity/Vol]34 U/L7-52[facility] HospitalAlbumin [Mass/volume] in Serum or Plasma by Bromocresol green (BCG) dye binding methoOrdered By: Christine Sanchez on 40-52-6084Pmnkrka BCG dye [Mass/Vol]4.3 g/dL3.5-5.7FKindred Hospital DaytonAlkaline phosphatase [Enzymatic activity/volume] in Serum or PlasmaOrdered By: Christine Sanchez on 95-56-5137YOP [Catalytic activity/Vol]70 U/L34-104 [place] [facility] HospitalAspartate aminotransferase [Enzymatic activity/volume] in Serum or PlasmaOrdered By: Christine Sanchez on 99-97-4954OMJ [Catalytic activity/Vol]23 U/Z42-89KpiuvfdszOhio State East HospitalAutomated erythrocytes count in urine sediment (number/area)Ordered By: Christine Sanchez on 57-24-5929UBZ Auto (Urine sed) [#/Area]1-2 [HPF]0-4FKindred Hospital DaytonAutomated leukocytes count in urine sediment (number/area)Ordered By: Christine Sanchez on 75-43-6141ZLJ Auto (Urine sed) [#/Area]1-2 [HPF]0-4FKindred Hospital DaytonBasophils Auto (Bld) [#/Vol]Ordered By: Christine Sanchez on 69-24-1511Uqadrqpzm (Bld) [#/Vol]0.0 10*3/uL0.0-0.2FKindred Hospital DaytonBasophils/100 WBC Auto (Bld)Ordered By: Christine Sanchez on 01-31-2023 Basophils/100 WBC (Bld)0.5 %.[facility] HospitalBilirubin Test strip Ql (U)Ordered By: Christine Sanchez on 75-97-0173Hajnvzmsz Ql (U)Negative NegativeOhio State East HospitalBilirubin.total [Mass/volume] in Serum or PlasmaOrdered By: Christine Sanchez on 85-32-1997Ciwszddmt [Mass/Vol]0.8 mg/dL 0.3-1.0[facility] HospitalCalcium [Mass/volume] in Serum or Plasma Ordered By: Christine Sanchez on 71-59-8050Uyxyomn [Mass/Vol]8.9 mg/dL8.6-10.3 [place] [facility] HospitalCarbon dioxide, total [Moles/volume] in Serum or PlasmaOrdered By: Christine Sanchez on 19-10-4839DC7 [Moles/Vol]24.6 mmol/L 21.0-31.0[facility] HospitalChloride [Moles/volume] in Serum or PlasmaOrdered By: Christine Sanchez on 93-73-3061Qleonfwg [Moles/Vol]108 mmol/L 98-107[facility] HospitalColor Auto (U)Ordered By: Christine Sanchez on 24-28-0039Tsjmk (U)Dark yellowYellowOhio State East Hospital Creatinine [Mass/volume] in Serum or PlasmaOrdered By: Christine Sanchez on 62-02-9642Zcwxiwhcmr [Mass/Vol]0.90 mg/dL0.70-1.30[facility] HospitalEosinophils Auto (Bld) [#/Vol]Ordered By: Christine Sanchez on 01-31-2023 Eosinophils (Bld) [#/Vol]0.1 10*3/uL0.0-0.45[facility] Eosinophils/100 WBC Auto (Bld)Ordered By: Christine Sanchez on 01-31-2023 Eosinophils/100 WBC (Bld)1.2 %.[facility] HospitalErythrocyte distribution width Auto (RBC) [Ratio]Ordered By: Christine Sanchez on 01-31-2023 Erythrocyte distribution width (RBC) [Ratio]15.2 %12.0-14.8[facility] HospitalErythrocyte sedimentation rate by Photometric methodOrdered By: Christine Sanchez on 77-07-9336YYY Photometric method (Bld) [Velocity]3 mm/hr0-19 [facility] HospitalGlobulin Calc (S) [Mass/Vol]Ordered By: Christine Sanchez on 73-47-9712Cbszxzpr (S) [Mass/Vol]1.9 g/dLOhio State East HospitalGlucose [Mass/volume] in Serum or PlasmaOrdered By: Christine Sanchez on 50-23-8649Dxbtcxv [Mass/Vol]131 mg/kJ66-384MuaqjaapmOhio State East Hospital Comment on above:ADA recommended reference rangeRandom Glucose Reference Range is dependent on time and content of last meal. Glucose of more than 200 mg/dL in a nonstressed, ambulatory subject supports the diagnosisof Diabetes Mellitus. Hematocrit Auto (Bld) [Volume fraction]Ordered By: Christine Sanchez on 01-31-2023 Hematocrit (Bld) [Volume fraction]45.2 %38.8-50.0[facility] HospitalHemoglobin [Mass/volume] in BloodOrdered By: Christine Sanchez on 01-31-2023 Hemoglobin (Bld) [Mass/Vol]15.4 g/dL13.0-17.0[facility] Ketones Auto test strip (U) [Mass/Vol]Ordered By: Christine Sanchez on 01-31-2023 Ketones (U) [Mass/Vol]TraceNegativeOhio State East HospitalLaboratory - Chemistry and Chemistry - challengeOrdered By: Christine Sanchez on 01-31-2023 GFR/1.73 sq M.predicted MDRD (S/P/Bld) [Vol rate/Area]mL/min/{1.73_m2}[facility] HospitalLaboratory - UrinalysisOrdered By: Christine Sanchez on 26-87-8867Wyedyfb casts LM Ql (Urine sed)0-8 [LPF]0-8[facility] HospitalLeukocytes [#/volume] corrected for nucleated erythrocytes in Blood by Automated counOrdered By: Christine Sanchez on 34-68-2770BGB corrected for nucl RBC Auto (Bld) [#/Vol]4.5 10*3/uL4.1-10.5FKindred Hospital Dayton Lymphocytes Auto (Bld) [#/Vol]Ordered By: Christine Sanchez on 01-31-2023 Lymphocytes (Bld) [#/Vol]0.7 10*3/uL1.00-4.8[facility] Lymphocytes/100 WBC Auto (Bld)Ordered By: Christine Sanchez on 01-31-2023 Lymphocytes/100 WBC (Bld)15.3 %.[facility] HospitalH Auto (RBC) [Entitic mass]Ordered By: Christine Sanchez on 33-14-6283TDB (RBC) [Entitic mass] 30.4 pg27.5-35.2FKindred Hospital DaytonMCHC Auto (RBC) [Mass/Vol] Ordered By: Christine Sanchez on 89-14-2036VOIN (RBC) [Mass/Vol]34.1 g/dL32.5-35.6 [facility] HospitalMCV Auto (RBC) [Entitic vol]Ordered By: Christine Sanchez on 57-68-7642ATE (RBC) [Entitic vol]89.0 fL83.5-101[facility] HospitalMonocytes Auto (Bld) [#/Vol]Ordered By: Christine Sanchez on 40-64-4036Psyzxhbcq (Bld) [#/Vol]0.4 10*3/uL0.0-0.8[facility] HospitalMonocytes/100 WBC Auto (Bld)Ordered By: Christine Sanchez on 01-31-2023 Monocytes/100 WBC (Bld)9.0 %.[facility] HospitalNeutrophils Auto (Bld) [#/Vol]Ordered By: Christine Sanchez on 13-70-1971Enrphgzxdyg (Bld) [#/Vol] 3.3 10*3/uL1.8-7.7FKindred Hospital DaytonNeutrophils/100 WBC Auto (Bld)Ordered By: Christien Sanchez on 76-88-4846Ywqluhlctvr/100 WBC (Bld)74.0 %. [place] [facility] HospitalNitrite Test strip Ql (U)Ordered By: Christine Sanchez on 99-12-1918Hieaeml Ql (U)NegativeNegativeOhio State East HospitalNo Panel InformationOrdered By: Christine Sanchez on 28-99-7106Auusnzev Creatinine Clearance (ChemN/[facility] HospitalTotal Complement (CH50)>60 U/mL>41[facility] HospitalComment on above:Age Male Female 1 - 30 days Not Estab. Not Estab. 31 days - 6 months >32 >20 7 months - 17 years >39 >39 >17 years >41 >41 NOTE: The adult ( >17 years ) reference intervalrange is used to flag abnormals on this report. If the patient is 17 years old or younger, use the table above to determine out of range values.Performed at: [address] [id number] Director: Richy Ardon PhD, Phone: [phone] erythrocytes [Presence] in Blood by Automated countOrdered By: Christine Sanchez on 57-83-3239Idirgzdtl RBC Auto Ql (Bld)0.3 /100{WBC}0-0.5FKindred Hospital DaytonPlatelet mean volume Auto (Bld) [Entitic vol]Ordered By: Christine Sanchez on 37-33-0954Xqeexzfd mean volume (Bld) [Entitic vol]8.5 fL6.6-10.1 [facility] HospitalPlatelets Auto (Bld) [#/Vol]Ordered By: Christine Sanchez on 33-73-3003Icinwuyzl (Bld) [#/Vol]163 10*3/yE775-537DhcjkqfftOhio State East HospitalPotassium [Moles/volume] in Serum or PlasmaOrdered By: Christine Sanchez on 51-68-9547Vcsmxpxth [Moles/Vol]3.7 mmol/L3.5-5.1FKindred Hospital DaytonProtein Auto test strip (U) [Mass/Vol]Ordered By: Christine Sanchez on 25-84-2139Dpkjgkx (U) [Mass/Vol]Trace mg/dLNegativeOhio State East HospitalProtein [Mass/volume] in Serum or PlasmaOrdered By: Christine Sanchez on 79-26-8975Dairqqu [Mass/Vol]6.2 g/dL6.4-8.9[facility] HospitalRBC Auto (Bld) [#/Vol]Ordered By: Christine Sanchez on 14-30-7467CUF (Bld) [#/Vol]5.08 10*6/uL3.90-5.60[facility] Hospitalerum or plasma albumin/globulin mass ratioOrdered By: Christine Sanchez on 01-31-2023 Albumin/Globulin [Mass ratio]2.3 {ratio}[facility] Hospitalerum or plasma anion gap determinationOrdered By: Christine Sanchez on 64-41-7485Wuvrs gap [Moles/Vol]11.1 mmol/L6.0-15.0[facility] Hospitalerum or plasma complement C3 measurement (mass/volume)Ordered By: Christine Sanchez on 47-66-4538Vucnkzrpma C3 [Mass/Vol]124 mg/xJ00-235HwqsioiuzOhio State East HospitalComment on above:Performed at: [facility] Lab[address] [id number] Director: Richy Ardon PhD, Phone: [phone] or plasma complement C4 measurement (mass/volume)Ordered By: Christine Sanchez on 61-67-6124Ymcrndxizj C4 [Mass/Vol]16 mg/xG97-49DbolybzquOhio State East Hospital Sodium [Moles/volume] in Serum or PlasmaOrdered By: Christine Sanchez on 01-31-2023 Sodium [Moles/Vol]140 mmol/S170-897QscwhcblkOhioHealth Grady Memorial Hospitalpecific gravity Auto test strip (U) [Rel density]Ordered By: Christine Sanchez on 92-27-2988Boldcnnb gravity (U) [Rel density]1.0281.001-1.030[facility] Hospitalquamous epithelial cells detection in urine sediment by light microscopyOrdered By: Christine Sanchez on 62-04-2002Hlskevwbto cells.squamous LM Ql (Urine sed)0-1 [HPF]0-2FKindred Hospital DaytonUrea nitrogen [Mass/volume] in Serum or PlasmaOrdered By: Christine aSnchez on 55-53-8321Zkqs nitrogen [Mass/Vol]23 mg/dL7-25[facility] HospitalUrine bacteria detection by automated methodOrdered By: Christine Sanchez on 39-01-4530Pleggyfb Auto Ql (U)None seenNone SeenOhio State East HospitalUrine clarity by refractometry automatedOrdered By: Christine Sanchez on 85-76-4492Eqpzfjw Refractometry automated (U)TurbidCleProtestant Deaconess HospitalUrine glucose measurement by automated test strip (mass/volume)Ordered By: Christine Sanchez on 53-89-5180Rbwqvub Auto test strip (U) [Mass/Vol]Normal mg/dLSt. Vincent HospitalUrine hemoglobin detection by automated test stripOrdered By: Christine Sanchez on 45-82-9035Vaditqqyeg Auto test strip Ql (U) NegativeNegativeOhio State East HospitalUrine leukocyte esterase detection by automated test stripOrdered By: Christine Sanchez on 01-31-2023 Leukocyte esterase Auto test strip Ql (U)1+NegativeOhio State East HospitalUrobilinogen Auto test strip (U) [Mass/Vol]Ordered By: Christine Sanchez on 88-67-9517Zesluclqxipj (U) [Mass/Vol]Normal mg/dLKettering HealthWBC Auto (Bld) [#/Vol]Ordered By: Christine Sanchez on 74-50-2075ZWR (Bld) [#/Vol]4.5 10*3/uL4.1-10.5FKindred Hospital DaytonpH Auto test strip (U)Ordered By: Christine Sanchez on 01-80-5229gV (U)5.0 [pH]5.0-9.0[facility] HospitalAutomated erythrocytes count in urine sediment (number/area)Ordered By: Christine Sanchez on 55-41-0168FKS Auto (Urine sed) [#/Area]0-1 [HPF]0-4FKindred Hospital DaytonAutomated leukocytes count in urine sediment (number/area)Ordered By: Christine Sanchez on 66-52-9391FKL Auto (Urine sed) [#/Area]0-1 [HPF]0-4FKindred Hospital DaytonBasophils Auto (Bld) [#/Vol]Ordered By: Christine Sanchez on 11-42-7130Sjenemzos (Bld) [#/Vol]0.0 10*3/uL0.0-0.2FKindred Hospital DaytonBasophils/100 WBC Auto (Bld) Ordered By: Christine Sanchez on 92-46-2044Wkmfyfrsh/100 WBC (Bld)0.6 %.[facility] HospitalBilirubin Test strip Ql (U)Ordered By: Christine Sanchez on 34-65-1583Bqmxrwnsu Ql (U)NegativeNegativeOhio State East HospitalBody fluid albumin measurement (mass/volume)Ordered By: Christine Sanchez on 10-26-2022 Albumin (Body fld) [Mass/Vol]4.0 g/dL3.2-5.5FKindred Hospital Dayton Color Auto (U)Ordered By: Christine Sanchez on 99-07-2742Niatd (U)YellowYellow [facility] HospitalCreatinine and Glomerular filtration rate.predicted panel (S/P/Bld)Ordered By: Christine Sanchez on 79-42-1260Hygdwmbkox [Mass/Vol]0.89 mg/dL0.64-1.27[facility] HospitalEosinophils Auto (Bld) [#/Vol]Ordered By: Christine Sanchez on 96-58-2303Zqqzfirtrke (Bld) [#/Vol] 0.1 10*3/uL0.0-0.45[facility] HospitalEosinophils/100 WBC Auto (Bld)Ordered By: Christine Sanchez on 21-01-6169Vqfougmipam/100 WBC (Bld)1.9 %. [facility] HospitalErythrocyte distribution width Auto (RBC) [Ratio]Ordered By: Christine Sanchez on 12-35-8238Ohxqminustu distribution width (RBC) [Ratio]14.7 %12.0-14.8[facility] HospitalErythrocyte sedimentation rate by Photometric methodOrdered By: Christine Sanchez on 10-26-2022 ESR Photometric method (d) [Velocity]6 mm/hr0-19[facility] HospitalEstimated glomerular filtration rate (GFR) non- AmericanOrdered By: Christine Sanchez on 50-41-1940HWG/1.73 sq M.predicted among non-blacks MDRD (S/P/Bld) [Vol rate/Area]> 60 mL/MinOhio State East HospitalGlobulin Calc (S) [Mass/Vol]Ordered By: Christine Sanchez on 44-39-3921Mcisayzk (S) [Mass/Vol]2.2 g/dLOhio State East HospitalHematocrit Auto (Bld) [Volume fraction]Ordered By: Christine Sanchez on 32-13-6352Xahagjnpwg (Bld) [Volume fraction]45.5 %38.8-50.0[facility] HospitalHemoglobin [Mass/volume] in BloodOrdered By: Christine Sanchez on 43-40-7206Jiapxconie (Bld) [Mass/Vol]15.5 g/dL13.0-17.0[facility] HospitalKetones Auto test strip (U) [Mass/Vol]Ordered By: Christine Sanchez on 86-07-6150Tdxcxeg (U) [Mass/Vol]TraceNegativeOhio State East HospitalLaboratory - Urinalysis Ordered By: Christine Sanchez on 98-88-3483Xfbhwzj casts LM Ql (Urine sed)0-8 [LPF] 0-8[facility] HospitalLeukocytes [#/volume] corrected for nucleated erythrocytes in Blood by Automated counOrdered By: Christine Sanchez on 55-09-9845NMJ corrected for nucl RBC Auto (Bld) [#/Vol]4.7 10*3/uL4.1-10.5 [facility] HospitalLymphocytes Auto (Bld) [#/Vol]Ordered By: Christine Sanchez on 30-62-2942Rysnlizbyyc (Bld) [#/Vol]0.8 10*3/uL1.00-4.8[facility] HospitalLymphocytes/100 WBC Auto (Bld)Ordered By: Christine Sanchez on 53-97-3008Zlqdozpdqze/100 WBC (Bld)16.8 %.[facility] MCH Auto (RBC) [Entitic mass]Ordered By: Christine Sanchez on 37-98-2160FVC (RBC) [Entitic mass]30.4 pg27.5-35.2FKindred Hospital DaytonMCHC Auto (RBC) [Mass/Vol]Ordered By: Christine Sanchez on 25-55-6922BOTD (RBC) [Mass/Vol]33.9 g/dL 32.5-35.6FKindred Hospital DaytonMCV Auto (RBC) [Entitic vol]Ordered By: Christine Sanchez on 30-44-9621YRK (RBC) [Entitic vol]89.6 fL83.5-101[facility] HospitalMonocytes Auto (Bld) [#/Vol]Ordered By: Christine Sanchez on 25-59-0841Nygopudqy (Bld) [#/Vol]0.6 10*3/uL0.0-0.8[facility] HospitalMonocytes/100 WBC Auto (Bld)Ordered By: Christine Sanchez on 10-26-2022 Monocytes/100 WBC (Bld)12.8 %.[facility] HospitalNeutrophils Auto (Bld) [#/Vol]Ordered By: Christine Sanchez on 44-72-0174Lnblqwgiraw (Bld) [#/Vol] 3.2 10*3/uL1.8-7.7FKindred Hospital DaytonNeutrophils/100 WBC Auto (Bld)Ordered By: Christine Sanchez on 26-01-6094Fhovjqeizbx/100 WBC (Bld)67.9 %. [facility] HospitalNitrite Test strip Ql (U)Ordered By: Christine Sanchez on 99-75-4541Evvtovx Ql (U)NegativeNegativeOhio State East HospitalNo Panel InformationOrdered By: Christine aSnchez on 88-41-2998Fhyyllvdv GFR ()> 60 mL/MinOhio State East HospitalComment on above: GFR estimated reference range: According to KDOQI guidelines, <60 ml/min/1.73m2 is sufficient todiagnose a patient with chronic kidney disease.Pharmacy Creatinine Clearance (ChemN/[facility] HospitalNucleated erythrocytes [Presence] in Blood by Automated countOrdered By: Christine Sanchez on 12-72-8690Aobnegjkc RBC Auto Ql (Bld)0.3 /100{WBC}0-0.5FKindred Hospital DaytonPlatelet mean volume Auto (Bld) [Entitic vol]Ordered By: Christine Sanchez on 12-87-8215Fcujupcp mean volume (Bld) [Entitic vol]8.3 fL6.6-10.1 [facility] HospitalPlatelets Auto (Bld) [#/Vol]Ordered By: Christine Sanchez on 71-58-7491Flkwjybue (Bld) [#/Vol]203 10*3/vI963-898YdfthnondOhio State East HospitalProtein Auto test strip (U) [Mass/Vol]Ordered By: Christine Sanchez on 85-65-9196Dotqoie (U) [Mass/Vol]NegativeNegativeOhio State East HospitalProtein [Mass/volume] in Serum or PlasmaOrdered By: Christine Sanchez on 17-89-2926Udqjroq [Mass/Vol]6.2 g/dL6.1-7.9[facility] RBC Auto (Bld) [#/Vol]Ordered By: Christine Sanchez on 01-80-8143XIA (Bld) [#/Vol] 5.08 10*6/uL3.90-5.60[facility] Hospitalerum or plasma alanine aminotransferase measurement without P-5'-P (enzymatic activiOrdered By: Christine Sanchez on 01-32-9854PTB No additional P-5'-P [Catalytic activity/Vol]40 U/L 10-60[facility] Hospitalerum or plasma albumin/globulin mass ratioOrdered By: Christine Sanchez on 60-13-6615Hzijnvm/Globulin [Mass ratio]1.8 {ratio}[facility] Hospitalerum or plasma alkaline phosphatase measurement (enzymatic activity/volume)Ordered By: Christine Sanchez on 10-26-2022 ALP [Catalytic activity/Vol]82 U/X57-23JnocmetehOhioHealth Grady Memorial Hospitalerum or plasma anion gap determinationOrdered By: Christine Sanchez on 44-23-1911Totvm gap [Moles/Vol]16.9 mmol/L6.0-15.0[facility] Hospitalerum or plasma aspartate aminotransferase measurement (enzymatic activity/volume)Ordered By: Christine Sanchez on 65-53-9970PPL [Catalytic activity/Vol]24 U/F18-45WfaozmeyrOhioHealth Grady Memorial Hospitalerum or plasma calcium measurement (mass/volume)Ordered By: Christine Sanchez on 68-69-1118Wwruqgd [Mass/Vol]9.6 mg/dL8.2-10.2FPaulding County Hospitalerum or plasma chloride measurement (moles/volume) Ordered By: Christine Sanchez on 97-90-6377Uyxcevfn [Moles/Vol]102 mmol/L95-114 [facility] Hospitalerum or plasma glucose measurement (mass/volume)Ordered By: Christine Sanchez on 79-04-0891Szmdqau [Mass/Vol]105 mg/dL 70-100[facility] HospitalComment on above:ADA recommended reference rangeRandom Glucose Reference Range is dependent on time and content of last meal. Glucose of more than 200 mg/dL in a nonstressed, ambulatory subject supports the diagnosisof Diabetes Mellitus.Serum or plasma potassium measurement (moles/volume)Ordered By: Christine Sanchez on 11-87-2700Ujivgvsuv [Moles/Vol]4.1 mmol/L3.5-5.1FPaulding County Hospitalerum or plasma sodium measurement (moles/volume)Ordered By: Christine Sanchez on 52-82-6768Yjyxph [Moles/Vol]136 mmol/K063-290OamsaxbazOhioHealth Grady Memorial Hospitalerum or plasma total bilirubin measurement (mass/volume)Ordered By: Christine Sanchez on 67-22-8549Rzkdlshyl [Mass/Vol]0.8 mg/dL0.3-1.2FKindred Hospital Dayton Serum or plasma total carbon dioxide measurement (moles/volume)Ordered By: Christine Sanchez on 00-33-8058MZ9 [Moles/Vol]21.2 mmol/L22.0-30.0[facility] Hospitalerum or plasma urea nitrogen measurement (mass/volume)Ordered By: Christine Sanchez on 14-09-8837Tgww nitrogen [Mass/Vol]16 mg/dL9-23[facility] Hospitalpecific gravity Auto test strip (U) [Rel density]Ordered By: Christine Sanchez on 44-73-2267Fxoamshk gravity (U) [Rel density]1.024 1.001-1.030[facility] Hospitalquamous epithelial cells detection in urine sediment by light microscopyOrdered By: Christine Sanchez on 10-26-2022 Epithelial cells.squamous LM Ql (Urine sed)None seen [HPF]0-2FKindred Hospital DaytonUrine bacteria detection by automated methodOrdered By: Christine Sanchez on 96-11-7385Lbztlnpx Auto Ql (U)None seenNone SeenOhio State East HospitalUrine clarity by refractometry automatedOrdered By: Christine Sanchez on 72-32-8836Afbdjam Refractometry automated (U)ClearCleProtestant Deaconess HospitalUrine glucose measurement by automated test strip (mass/volume) Ordered By: Christine Sanchez on 29-35-4635Icalqtb Auto test strip (U) [Mass/Vol] Normal mg/dLNormalOhio State East HospitalUrine hemoglobin detection by automated test stripOrdered By: Christine Sanchez on 75-71-7871Leirvgasmg Auto test strip Ql (U)NegativeNegKettering Health Main CampusUrine leukocyte esterase detection by automated test stripOrdered By: Christine Sanchez on 59-95-5311Ntnyfpogo esterase Auto test strip Ql (U)NegativeNegativeOhio State East HospitalUrobilinogen Auto test strip (U) [Mass/Vol]Ordered By: Christine Sanchez on 74-71-5880Lxtckvdkismx (U) [Mass/Vol]Normal mg/dLNormal [facility] HospitalWBC Auto (Bld) [#/Vol]Ordered By: Christine Sanchez on 34-85-7181WJP (Bld) [#/Vol]4.7 10*3/uL4.1-10.5FKindred Hospital DaytonpH Auto test strip (U)Ordered By: Christine Sanchez on 92-35-3867sC (U)5.5 [pH]5.0-9.0[facility] HospitalAutomated erythrocytes count in urine sediment (number/area)Ordered By: Christine Sanchez on 46-26-8112RYO Auto (Urine sed) [#/Area]0-1 [HPF]0-4FKindred Hospital DaytonAutomated leukocytes count in urine sediment (number/area)Ordered By: Christine Sanchez on 94-56-8345FJM Auto (Urine sed) [#/Area]0-1 [HPF]0-4FKindred Hospital DaytonBasophils Auto (Bld) [#/Vol]Ordered By: Christine Sanchez on 07-21-2022 Basophils (Bld) [#/Vol]0.0 10*3/uL0.0-0.2FKindred Hospital Dayton Basophils/100 WBC Auto (Bld)Ordered By: Christine Sanchez on 07-21-2022 Basophils/100 WBC (Bld)0.6 %.[facility] HospitalBilirubin Test strip Ql (U)Ordered By: Christine Sanchez on 53-82-3097Qjtnmjgdw Ql (U)Negative NegativeOhio State East HospitalBody fluid albumin measurement (mass/volume)Ordered By: Christine Sanchez on 31-29-4595Nedboeg (Body fld) [Mass/Vol]3.9 g/dL3.2-5.5FKindred Hospital DaytonColor Auto (U)Ordered By: Christine Sanchez on 77-05-7522Eixlz (U)YellowYellowOhio State East HospitalCreatinine and Glomerular filtration rate.predicted panel (S/P/Bld)Ordered By: Christine Sanchez on 37-92-8086Dmrlfgsseu [Mass/Vol]0.91 mg/dL0.64-1.27 [facility] HospitalEosinophils Auto (Bld) [#/Vol]Ordered By: Christine Sanchez on 60-17-0508Wtwutzcsveb (Bld) [#/Vol]0.1 10*3/uL0.0-0.45[facility] HospitalEosinophils/100 WBC Auto (Bld)Ordered By: Christine Sanchez on 73-82-8728Pffkugqblrc/100 WBC (Bld)1.6 %.[facility] Erythrocyte distribution width Auto (RBC) [Ratio]Ordered By: Christine Sanchez on 16-56-5540Oovaexjxhgp distribution width (RBC) [Ratio]15.2 %12.0-14.8[facility] HospitalErythrocyte sedimentation rate by Photometric method Ordered By: Christine Sanchez on 75-05-3373KIM Photometric method (Bld) [Velocity]9 mm/hr0-19[facility] HospitalEstimated glomerular filtration rate (GFR) non- AmericanOrdered By: Christine Sanchez on 80-86-3357EPJ/1.73 sq M.predicted among non-blacks MDRD (S/P/Bld) [Vol rate/Area]> 60 mL/MinOhio State East HospitalGlobulin Calc (S) [Mass/Vol]Ordered By: Christine Sanchez on 31-60-1961Eaagtdbg (S) [Mass/Vol]2.1 g/dLOhio State East Hospital Hematocrit Auto (Bld) [Volume fraction]Ordered By: Christine Sanchez on 08-31-2022 Hematocrit (Bld) [Volume fraction]45.4 %38.8-50.0[facility] HospitalHemoglobin [Mass/volume] in BloodOrdered By: Christine Sanchez on 07-21-2022 Hemoglobin (Bld) [Mass/Vol]15.2 g/dL13.0-17.0[facility] Ketones Auto test strip (U) [Mass/Vol]Ordered By: Christine Sanchez on 07-21-2022 Ketones (U) [Mass/Vol]NegativeNegativeOhio State East Hospital Laboratory - Hematology and Cell countsOrdered By: Christine Sanchez on 07-21-2022 Nucleated RBC/100 WBC (Bld) [Ratio]0.1 %0-0.5FKindred Hospital Dayton Laboratory - UrinalysisOrdered By: Christine Sanchez on 74-00-9954Zsfvsdd casts LM Ql (Urine sed)0-8 [LPF]0-8[facility] HospitalLeukocytes [#/volume] in Blood by Automated countOrdered By: Christine Sanchez on 74-29-6113TPO (Bld) [#/Vol]6.6 10*3/uL4.5-11.0[facility] HospitalLymphocytes Auto (Bld) [#/Vol]Ordered By: Christine Sanchez on 99-73-4782Qidtrycumvd (Bld) [#/Vol] 0.8 10*3/uL1.00-4.8[facility] HospitalLymphocytes/100 WBC Auto (Bld)Ordered By: Christine Sanchez on 34-11-6736Vtougcylypu/100 WBC (Bld)11.5 %. [facility] Auto (RBC) [Entitic mass]Ordered By: Christine Sanchez on 29-53-9958FGT (RBC) [Entitic mass]30.3 pg27.5-35.2FTrinity Health System West CampusHC Auto (RBC) [Mass/Vol]Ordered By: Christine Sanchez on 85-23-3798MEDL (RBC) [Mass/Vol]33.5 g/dL32.5-35.6FKindred Hospital DaytonMCV Auto (RBC) [Entitic vol]Ordered By: Christine Sanchez on 55-83-2790GWQ (RBC) [Entitic vol]90.4 fL83.5-101[facility] HospitalMonocytes Auto (Bld) [#/Vol]Ordered By: Christine Sanchez on 60-81-5196Spenawxqg (Bld) [#/Vol]0.9 10*3/uL0.0-0.8[facility] HospitalMonocytes/100 WBC Auto (Bld)Ordered By: Christine Sanchez on 85-81-0730Cuuxuffjt/100 WBC (Bld)13.7 %. [facility] HospitalNeutrophils Auto (Bld) [#/Vol]Ordered By: Christine Sanchez on 96-30-7137Aezcxxmxiin (Bld) [#/Vol]4.8 10*3/uL1.8-7.7FKindred Hospital DaytonNeutrophils/100 WBC Auto (Bld)Ordered By: Christine Sanchez on 57-86-7096Ymbahqhcdcw/100 WBC (Bld)72.6 %.[facility] Nitrite Test strip Ql (U)Ordered By: Christine Sanchez on 93-19-4418Lybeicr Ql (U) NegativeNegativeOhio State East HospitalNo Panel InformationOrdered By: Christine Sanchez on 52-58-1681Qftykfqqa GFR ()> 60 mL/Min [facility] HospitalComment on above:GFR estimated reference range: According to KDOQI guidelines, <60 ml/min/1.73m2 is sufficient todiagnose a patient with chronic kidney disease.Pharmacy Creatinine Clearance (ChemN/A [facility] HospitalTotal Complement (CH50)>60 U/mL>41[facility] HospitalComment on above:Age Male Female 1 - 30 days Not Estab. Not Estab. 31 days - 6 months >32 >20 7 months - 17 years >39 >39 >17 years >41 >41 NOTE: The adult ( >17 years ) reference intervalrange is used to flag abnormals on this report. If the patient is 17 years old or younger, use the t able above to determine out of range values.Performed at: - [facility] [id number] Director: Richy Ardon PhD, Phone: [phone] mean volume Auto (Bld) [Entitic vol]Ordered By: Christine Sanchez on 90-27-3491Unndvmha mean volume (Bld) [Entitic vol]8.4 fL6.6-10.1 [facility] HospitalPlatelets Auto (Bld) [#/Vol]Ordered By: Christine Sanchez on 39-82-2230Vpcjawvas (Bld) [#/Vol]185 10*3/gH450-731CryaivmkpOhio State East HospitalProtein Auto test strip (U) [Mass/Vol]Ordered By: Christine Sanchez on 18-22-2341Omxnpon (U) [Mass/Vol]NegativeNegativeOhio State East HospitalProtein [Mass/volume] in Serum or PlasmaOrdered By: Christine Sanchez on 38-95-9615Ixsmhvj [Mass/Vol]6.0 g/dL6.1-7.9[facility] RBC Auto (Bld) [#/Vol]Ordered By: Christine Sanchez on 78-48-8468IUH (Bld) [#/Vol] 5.03 10*6/uL3.90-5.60[facility] Hospitalerum or plasma alanine aminotransferase measurement without P-5'-P (enzymatic activiOrdered By: Christine Sanchez on 39-63-3560FHF No additional P-5'-P [Catalytic activity/Vol]35 U/L 10-60[facility] Hospitalerum or plasma albumin/globulin mass ratioOrdered By: Christine Sanchez on 76-28-6822Xevlijg/Globulin [Mass ratio]1.9 {ratio}[facility] Hospitalerum or plasma alkaline phosphatase measurement (enzymatic activity/volume)Ordered By: Christine Sanchez on 07-21-2022 ALP [Catalytic activity/Vol]81 U/W91-98UbyehukftOhioHealth Grady Memorial Hospitalerum or plasma anion gap determinationOrdered By: Christine Sanchez on 96-87-8558Ryvvb gap [Moles/Vol]13.7 mmol/L6.0-15.0[facility] Hospitalerum or plasma aspartate aminotransferase measurement (enzymatic activity/volume)Ordered By: Christine Sanchez on 45-63-5319KPD [Catalytic activity/Vol]20 U/A51-69DqcchtiujOhioHealth Grady Memorial Hospitalerum or plasma calcium measurement (mass/volume)Ordered By: Christine Sanchez on 37-25-3809Xfvskfr [Mass/Vol]9.5 mg/dL8.2-10.2FPaulding County Hospitalerum or plasma chloride measurement (moles/volume) Ordered By: Christine Sanchez on 95-79-5005Rvqcjdcs [Moles/Vol]103 mmol/L95-114 [facility] Hospitalerum or plasma complement C3 measurement (mass/volume)Ordered By: Christine Sanchez on 27-82-5030Jgeblhezxl C3 [Mass/Vol]145 mg/zV04-711ZosqcfatnOhio State East HospitalComment on above:Performed at: leemail [facility] [id number] Director: Richy Ardon PhD, Phone: [phone] or plasma complement C4 measurement (mass/volume)Ordered By: Christine Sanchez on 80-94-3364Eibepeebhd C4 [Mass/Vol]23 mg/kO33-53XcwchewzdOhioHealth Grady Memorial Hospitalerum or plasma glucose measurement (mass/volume)Ordered By: Christine Sanchez on 36-54-2171Oqkthor [Mass/Vol]83 mg/dL 70-100[facility] HospitalComment on above:ADA recommended reference rangeRandom Glucose Reference Range is dependent on time and content of last meal. Glucose of more than 200 mg/dL in a nonstressed, ambulatory subject supports the diagnosisof Diabetes Mellitus.Serum or plasma potassium measurement (moles/volume)Ordered By: Christine Sanchez on 67-12-8144Wvqknxopa [Moles/Vol]4.1 mmol/L3.5-5.1FPaulding County Hospitalerum or plasma sodium measurement (moles/volume)Ordered By: Christine Sanchez on 89-74-0318Uviesv [Moles/Vol]135 mmol/N323-951EswuocthqOhioHealth Grady Memorial Hospitalerum or plasma total bilirubin measurement (mass/volume)Ordered By: Christine Sanchez on 85-27-2873Fhmpzkrtz [Mass/Vol]0.9 mg/dL0.3-1.2FKindred Hospital Dayton Serum or plasma total carbon dioxide measurement (moles/volume)Ordered By: Christine Sanchez on 62-58-4871KP0 [Moles/Vol]22.4 mmol/L22.0-30.0[facility] Hospitalerum or plasma urea nitrogen measurement (mass/volume)Ordered By: Christine Sanchez on 12-54-2027Lzjs nitrogen [Mass/Vol]15 mg/dL9-23[facility] Hospitalpecific gravity Auto test strip (U) [Rel density]Ordered By: Christine Sanchez on 38-35-6843Yeinpiif gravity (U) [Rel density]1.020 1.001-1.030[facility] Hospitalquamous epithelial cells detection in urine sediment by light microscopyOrdered By: Christine Sanchez on 07-21-2022 Epithelial cells.squamous LM Ql (Urine sed)None seen [HPF]0-2FKindred Hospital DaytonUrine bacteria detection by automated methodOrdered By: Christine Sanchez on 52-22-4714Aoijbfrt Auto Ql (U)None seenNone SeenOhio State East HospitalUrine clarity by refractometry automatedOrdered By: Christine Sanchez on 77-61-7659Pcpbfln Refractometry automated (U)ClearClearFKindred Hospital DaytonUrine glucose measurement by automated test strip (mass/volume) Ordered By: Christine Sanchez on 64-02-8913Ajzvrtb Auto test strip (U) [Mass/Vol] Normal mg/dLNormalOhio State East HospitalUrine hemoglobin detection by automated test stripOrdered By: Christine Sanchez on 08-81-5683Zfhrchaevf Auto test strip Ql (U)NegativeNegKettering Health Main CampusUrine leukocyte esterase detection by automated test stripOrdered By: Christine Sanchez on 88-78-6639Shfassapr esterase Auto test strip Ql (U)NegativeNegKettering Health Main CampusUrobilinogen Auto test strip (U) [Mass/Vol]Ordered By: Christine Sanchez on 66-26-8973Djsaydvufnzd (U) [Mass/Vol]Normal mg/dLNormal [facility] HospitalpH Auto test strip (U)Ordered By: Christine Sanchez on 22-05-0837qR (U)6.0 [pH]5.0-9.0[facility] Automated erythrocytes count in urine sediment (number/area)Ordered By: Romel Davis on 01-53-9299EOH Auto (Urine sed) [#/Area]5-9 [HPF][facility] HospitalAutomated leukocytes count in urine sediment (number/area)Ordered By: Romel Davis on 46-84-0588ACQ Auto (Urine sed) [#/Area]0-1 [HPF][facility] HospitalBasophils Auto (Bld) [#/Vol]Ordered By: Romel Davis on 49-20-9620Jktpxpfnm (Bld) [#/Vol]0.0 10*3/uL0.0-0.2FKindred Hospital DaytonBasophils/100 WBC Auto (Bld)Ordered By: Romel Davis on 04-14-2022 Basophils/100 WBC (Bld)0.6 %[facility] HospitalBilirubin Test strip Ql (U)Ordered By: Romel Davis on 38-89-4096Epoipehde Ql (U)Negative NegativeOhio State East HospitalBlood hemoglobin measurement (mass/volume)Ordered By: Romel Davis on 99-78-3322Svtunuxkqx (Bld) [Mass/Vol] 15.4 g/dL13.0-17.0[facility] HospitalBlood leukocytes automated count (number/volume)Ordered By: Romel Davis on 68-33-4732FZE (Bld) [#/Vol] 5.8 10*3/uL4.5-11.0[facility] HospitalBody fluid albumin measurement (mass/volume)Ordered By: Romel Davis on 17-95-0556Wnjhbrs (Body fld) [Mass/Vol]3.9 g/dL3.2-5.5FKindred Hospital DaytonCholesterol [Mass/volume] in Serum or PlasmaOrdered By: Sascha Sutton on 04-14-2022 Cholesterol [Mass/Vol]125 mg/xB687-618MnlropalzOhio State East HospitalComment on above:Chol less than 200 mg/dl low risk Chol 201-239 mg/dl borderline risk Chol 240 mg/dl and greater high riskCholesterol in LDL Calc [Mass/Vol]Ordered By: Sascha Sutton on 72-05-9165Inyinghftoe in LDL [Mass/Vol]69 mg/dL0-100 [facility] HospitalComment on above:LDL ATP III CLASSIFICATION LDL less than 100 mg/dL Optimal LDL 100-129 mg/dL Near or above optimal LDL 130-159 mg/dL Borderline high LDL 160-189 mg/dL High LDL greater than 189 mg/dL Very highCholesterol in VLDL Calc [Mass/Vol]Ordered By: Sascha Sutton on 87-74-1245Xvbrgflqenn in VLDL [Mass/Vol]15 mg/dLOhio State East HospitalColor Auto (U)Ordered By: Romel Davis on 04-14-2022 Color (U)YellowYellowOhio State East HospitalCreatinine and Glomerular filtration rate.predicted panel (S/P/Bld)Ordered By: Romel Davis on 75-67-7504Djibmvtgiw [Mass/Vol]0.86 mg/dL0.64-1.27[facility] HospitalEosinophils Auto (Bld) [#/Vol]Ordered By: Romel Davis on 04-14-2022 Eosinophils (Bld) [#/Vol]0.1 10*3/uL0.0-0.45[facility] Eosinophils/100 WBC Auto (Bld)Ordered By: Romel Davis on 04-14-2022 Eosinophils/100 WBC (Bld)1.5 %[facility] HospitalErythrocyte distribution width Auto (RBC) [Ratio]Ordered By: Romel Davis on 04-14-2022 Erythrocyte distribution width (RBC) [Ratio]14.6 %12.0-14.8[facility] HospitalErythrocyte sedimentation rate by Photometric methodOrdered By: Romel Davis on 60-33-0099PKA Photometric method (Bld) [Velocity]5 mm/hr0-19 [facility] HospitalEstimated glomerular filtration rate (GFR) non- AmericanOrdered By: Romel Davis on 82-33-8645PEX/1.73 sq M.predicted among non-blacks MDRD (S/P/Bld) [Vol rate/Area]> 60 mL/MinOhio State East HospitalGlobulin Calc (S) [Mass/Vol]Ordered By: Romel Davis on 61-06-7752Yzcaaxhc (S) [Mass/Vol]2.3 g/dLOhio State East Hospital Hematocrit Auto (Bld) [Volume fraction]Ordered By: Romel Davis on 04-14-2022 Hematocrit (Bld) [Volume fraction]45.0 %38.8-50.0[facility] HospitalKetones Auto test strip (U) [Mass/Vol]Ordered By: Romel Davis on 10-64-2107Ngunnyy (U) [Mass/Vol]TraceNegativeOhio State East Hospital Laboratory - Hematology and Cell countsOrdered By: Romel Davis on 04-14-2022 Nucleated RBC/100 WBC (Bld) [Ratio]0.1 %0-0.5FKindred Hospital Dayton Laboratory - UrinalysisOrdered By: Romel Davis on 04-55-8140Tqtvjiz casts LM Ql (Urine sed)0-8 [LPF][facility] HospitalLymphocytes Auto (Bld) [#/Vol]Ordered By: Romel Davis on 64-80-5985Udjwdrczoph (Bld) [#/Vol]0.6 10*3/uL1.00-4.8[facility] HospitalLymphocytes/100 WBC Auto (Bld) Ordered By: Romel Davis on 77-04-7934Zclosigczjv/100 WBC (Bld)10.9 %[facility] Auto (RBC) [Entitic mass]Ordered By: Romel Davis on 89-13-0523YMX (RBC) [Entitic mass]30.5 pg27.5-35.2FKindred Hospital DaytonMCHC Auto (RBC) [Mass/Vol]Ordered By: Romel Davis on 10-44-5122HVPT (RBC) [Mass/Vol]34.2 g/dL32.5-35.6FKindred Hospital DaytonMCV Auto (RBC) [Entitic vol]Ordered By: Romel Davis on 57-03-8028GND (RBC) [Entitic vol]89.3 fL83.5-101[facility] HospitalMonocytes Auto (Bld) [#/Vol] Ordered By: Romel Davis on 42-60-8960Frmoszenr (Bld) [#/Vol]0.7 10*3/uL 0.0-0.8[facility] HospitalMonocytes/100 WBC Auto (Bld)Ordered By: Romel Davis on 11-76-5524Cwlkocipf/100 WBC (Bld)12.2 %[facility] HospitalNeutrophils Auto (Bld) [#/Vol]Ordered By: Romel Davis on 91-39-8921Sohligrbkil (Bld) [#/Vol]4.4 10*3/uL1.8-7.7FKindred Hospital DaytonNeutrophils/100 WBC Auto (Bld)Ordered By: Romel Davis on 04-14-2022 Neutrophils/100 WBC (Bld)74.8 %[facility] HospitalNitrite Test strip Ql (U)Ordered By: Romel Davis on 15-34-6136Tnnvbgt Ql (U)Negative NegativeOhio State East HospitalNo Panel InformationOrdered By: Romel Davis on 83-05-0908Hmxjqpbct GFR ()> 60 mL/MinOhio State East HospitalComment on above:GFR estimated reference range: According to KDOQI guidelines, <60 ml/min/1.73m2 is sufficient todiagnose a patient with chronic kidney disease.Pharmacy Creatinine Clearance (ChemN/[facility] HospitalNo Panel InformationOrdered By: Sascha Sutton on 04-14-2022 Prostate Specific Antigen Screen1.930 ng/mL0.000-4.000[facility] HospitalPlatelet mean volume Auto (Bld) [Entitic vol]Ordered By: Romel Davis on 75-51-6949Pzpcfcic mean volume (Bld) [Entitic vol]8.8 fL6.6-10.1FKindred Hospital DaytonPlatelets Auto (Bld) [#/Vol]Ordered By: Roeml Davis on 39-66-3197Aoccsdivv (Bld) [#/Vol]181 10*3/yJ570-111FdkgnlhfiOhio State East HospitalProtein Auto test strip (U) [Mass/Vol]Ordered By: Romel Davis on 43-53-8772Mtxhjxc (U) [Mass/Vol]Trace mg/dLNegativeOhio State East HospitalProtein [Mass/volume] in Serum or PlasmaOrdered By: Romel Davis on 24-09-9329Rcedfhx [Mass/Vol]6.2 g/dL6.1-7.9[facility] HospitalRBC Auto (Bld) [#/Vol]Ordered By: Romel Davis on 21-80-7263CGF (Bld) [#/Vol]5.03 10*6/uL3.90-5.60[facility] Hospitalerum or plasma alanine aminotransferase measurement without P-5'-P (enzymatic activiOrdered By: Romel Davis on 07-80-4531CIV No additional P-5'-P [Catalytic activity/Vol]27 U/L 10-60[facility] Hospitalerum or plasma albumin/globulin mass ratioOrdered By: Romel Davis on 46-99-9240Gujxcye/Globulin [Mass ratio]1.7 {ratio}[facility] Hospitalerum or plasma alkaline phosphatase measurement (enzymatic activity/volume)Ordered By: Romel Davis on 04-14-2022 ALP [Catalytic activity/Vol]77 U/O59-98PqkwnxcyaOhioHealth Grady Memorial Hospitalerum or plasma aspartate aminotransferase measurement (enzymatic activity/volume)Ordered By: Romel Davis on 22-50-2534OYC [Catalytic activity/Vol]20 U/K41-00KwsardgjeOhioHealth Grady Memorial Hospitalerum or plasma calcium measurement (mass/volume)Ordered By: Romel Davis on 23-37-1499Azqlpwa [Mass/Vol]9.0 mg/dL8.2-10.2FPaulding County Hospitalerum or plasma chloride measurement (moles/volume) Ordered By: Romel Davis on 09-02-1589Saxjqemo [Moles/Vol]104 mmol/L95-114 [facility] Hospitalerum or plasma glucose measurement (mass/volume)Ordered By: Romel Davis on 14-02-6294Bkjwixn [Mass/Vol]110 mg/dL 70-100[facility] HospitalComment on above:ADA recommended reference range Random Glucose Reference Range is dependent on time and content of last meal. Glucose of more than 200 mg/dL in a nonstressed, ambulatory subject supports the diagnosis of Diabetes Mellitus.Serum or plasma high density lipoprotein (HDL) cholesterol measurementOrdered By: Sascha Sutton on 40-03-6037Skxiewstour in HDL [Mass/Vol]41 mg/dP63-10BgemxxvyhOhio State East HospitalComment on above:HDL CHOL ATP-III CLASSIFICATION Cardiovascular Risk HDL > or equal to 60 mg/dL LOW HDL < 40 mg/dL HIGHSerum or plasma potassium measurement (moles/volume)Ordered By: Romel Davis on 33-83-1682Anzqnjqio [Moles/Vol]3.9 mmol/L3.5-5.1FPaulding County Hospitalerum or plasma sodium measurement (moles/volume)Ordered By: Romel Davis on 02-30-3451Hdreha [Moles/Vol]136 mmol/O701-200TqapfgnirOhioHealth Grady Memorial Hospitalerum or plasma total bilirubin measurement (mass/volume) Ordered By: Romel Davis on 97-21-3763Cftwhnrwf [Mass/Vol]0.9 mg/dL0.3-1.2 [facility] Hospitalerum or plasma total carbon dioxide measurement (moles/volume)Ordered By: Romel Davis on 74-65-2149XR3 [Moles/Vol]21.2 mmol/L22.0-30.0[facility] Hospitalerum or plasma total cholesterol/high density lipoprotein (HDL) cholesterol mass ratOrdered By: Sascha Sutton on 52-46-5745Kqhzrjlxerl.total/Cholesterol in HDL [Mass ratio] 3.0 {ratio}[facility] Hospitalerum or plasma urea nitrogen measurement (mass/volume)Ordered By: Romel Davis on 48-69-8663Gwci nitrogen [Mass/Vol]16 mg/dL9-23[facility] Hospitalpecific gravity Auto test strip (U) [Rel density]Ordered By: Romel Davis on 46-60-8782Trjhxwfz gravity (U) [Rel density]1.0251.001-1.030[facility] Squamous epithelial cells detection in urine sediment by light microscopyOrdered By: Romel Davis on 69-93-9177Ijadgvewtj cells.squamous LM Ql (Urine sed)0-1 [HPF][place] State East HospitalTriglyceride [Mass/volume] in Serum or PlasmaOrdered By: Sascha Sutton on 25-42-4562Daoxprpwdanb [Mass/Vol]75 mg/dL 35-149[facility] State East HospitalComment on above:TRIG ATP III CLASSIFICATION TRIG less than 150 mg/dL Normal TRIG 150-199 mg/dL Borderline high TRIG 200-500 mg/dL High TRIG greater than 500 mg/dL Very high Standard traceable to the Center for Disease Conrtrol and Prevention (CDC) test method.Urine bacteria detection by automated methodOrdered By: Romel Davis on 00-82-4707Sfrcwknj Auto Ql (U)None seenNone SeenOhio State East HospitalUrine clarity by refractometry automatedOrdered By: Romel Davis on 92-02-7273Dmrvoqg Refractometry automated (U)TurbidCleProtestant Deaconess HospitalUrine glucose measurement by automated test strip (mass/volume) Ordered By: Romel Davis on 83-79-1976Cpjcnxx Auto test strip (U) [Mass/Vol] Normal mg/dLNoBlanchard Valley Health System Bluffton HospitalUrine hemoglobin detection by automated test stripOrdered By: Romel Davis on 79-23-5776Njmpemewhj Auto test strip Ql (U)NegativeNegativeOhio State East HospitalUrine leukocyte esterase detection by automated test stripOrdered By: Romel Davis on 24-79-4052Aotxrmkag esterase Auto test strip Ql (U)NegativeNegKettering Health Main CampusUrobilinogen Auto test strip (U) [Mass/Vol]Ordered By: Romel Davis on 10-58-4871Qdchmucecqkk (U) [Mass/Vol]Normal mg/dLNoal [place] [facility] HospitalpH Auto test strip (U)Ordered By: Romel Davis on 77-33-6387rA (U)5.5 [pH]5.0-9.0[facility] HospitalCT CSPINE WO CONon 91-67-3298CB [facility] WO [facility]AM[facility]ATION: CT CSPINE WO CON HISTORY: Unspecified fall COMPARISON: CT [...] Electronically authenticated by: PRIMO GALE Date: 2022-04-09 17:03[facility] HEAD WO CONon [id number] HEAD WO CONEXAMINATION: CT HEAD WO CON HISTORY: Unspecified fall [...] Electronically authenticated by: PRIMO GALE Date: 2022-04-09 17:00[facility]CT T[facility]on [id number] [facility] WO CONEXAMINATION: [facility] WO CON HISTORY: Unspecified fall COMPARISON: No [...] Electronically authenticated by: PRIMO GALE Date: 2022-04-09 17:10[facility] CenterCT ABDOMEN AND PELVIS W/O CONTRASTon [id number] ABDOMEN AND PELVIS W/O CONTRASTPerformed at [facility] APPROVED BY: JOSE CRUZ HOLLEY MD [...] suggest acute pancreatitis. Adrenals: No masses detected. Kidneys/ureters/bladder:There are small fluid and stranding of the left periureteric fat and left perinephric fat with mildleft hydronephrosis and dilatation of the left ureter [...] umbilical hernia with no evidence of bowel con taining abdominal wall or inguinal hernia. The appendix is normal. No intra- abdominal free air. A few colonic diverticula noted with no CT evidence of acute diverticulitis. Lymph nodes: No enlarged abdominal or pelvic lymphadenopathy. Mesentery/Peritoneum: No free fluid or definite mass. Vasculature: The IVC and abdominal aorta are normal in caliber. Calcified atherosclerotic aortic plaques notedin the abdominal aorta with no aneurysmal dilatation. [...] No acute appendicitis, bowel obstruction or intra-abdominal fr ee air. Incidental finding: Please consider multiphase MRI [...] approximately 3 mm and causing mild left hydroureteronephrosis.Addendum EndsEXAMINATION: CT ABDOMEN AND PELVIS WITHOUT IV [...] suggest acute pancreatitis. Adrenals: No masses detected. Kidneys/ureters/bladder:There are small fluid and stranding of the left periureteric fat and left perinephric fat with mildleft hydronephrosis and dilatation of the left ureter [...] umbilical hernia with no evidence of bowel con taining abdominal wall or inguinal hernia. The appendix is normal. No intra- abdominal free air. A few colonic diverticula noted with no CT evidence of acute diverticulitis. Lymph nodes: No enlarged abdominal or pelvic lymphadenopathy. Mesentery/Peritoneum: No free fluid or definite mass. Vasculature: The IVC and abdominal aorta are normal in caliber. Calcified atherosclerotic aortic plaques notedin the abdominal aorta with no aneurysmal dilatation. [...] No acute appendicitis, bowel obstruction or intra-abdominal fr ee air. Incidental finding: Please consider multiphase MRI to assess the right hepatic lesion as described above. Please review the detailed report for complete information.NormalAcmc Healthcare System GlenbeighComprehensive Panelon 88-71-2952Tdvrihy6.3 g/dLNormal3.4-5.0[facility] System GlenbeighComment on above:Performed By: #### SP14 ####[facility] [place], [place] [address]Fcsdjqjd phosphatase (ALP)87 U/GGctcbz58-705BacjcAcmc Healthcare System GlenbeighComment on above:Performed By: #### SP14 ####[facility] [place], [place] [address]EDS-MZUF Blood38 U/NHlztgb13-88 [facility] SystemComment on above:Performed By: #### SP14 ####[facility] [place], [place] [address]Svcjt gap13 mmol/L Normal8-16[facility] SystemComment on above:Performed By: #### SP14 ####[facility] [place], [place] [address]TEZ-PSIH Blood22 U/LSsanbw97-51SrgqvParkview Lagrange Hospital SystemComment on above:Performed By: #### SP14 ####[facility] [place], [place] [address]Dxyurvdih Ql (U)0.9 mg/dLNormal0.2-1.0[facility] SystemComment on above:Performed By: #### SP14 ####[address] [address]SYL (urea nitrogen)20 mg/dLHigh7-18[facility] SystemComment on above:Performed By: #### SP14 ####[address] [address]Sczmjla8.0 mg/dLNormal8.5-10.1AWheeling Hospital SystemComment on above:Performed By: #### SP14 ####[address] [address]Iubpoaqf230 mmol/LNormal 98-107[facility] SystemComment on above:Performed By: #### SP14 ####[address] [address]AL[address] mmol/AMmyttu46-33DjameParkview Lagrange Hospital SystemComment on above:Performed By: #### SP14 ####[address] [address] Creatinine0.93 mg/dLNormal0.67-1.17AWheeling Hospital SystemComment on above: Performed By: #### SP14 ####[address] [address]Dbtxkte mass wufj879 mg/eWGqhd61-93MwtqhParkview Lagrange Hospital SystemComment on above:Performed By: #### SP14 ####[facility] [place], [place] [address]Wyygtvvap molar conc3.8 mmol/LNormal 3.5-5.1AWheeling Hospital SystemComment on above:Performed By: #### SP14 ####[facility] [place], [place] [address]Qqukhbo 7.4 g/dLNormal6.4-8.2AWheeling Hospital SystemComment on above:Performed By: #### SP14 ####[facility] [place], [place] [address]Idoadf212 mmol/IRcljvy137-967IojqtAcmc Healthcare System GlenbeighComment on above: Performed By: #### SP14 ####[facility] [place], [place] [address]LS NOTEon 18-05-2380GL NOTEHNO ID: [id number] Author: Minerva GarciaRn) KATHE Zepeda Service: Emergency Medicine Author Type: Registered Nurse Type: ED Notes Filed: 04/25/2018 5:51 AM Note Text: Voided 150 cc light yellow urine which was strained: no stone notedNorthern [facility] NOTEHNO ID: [id number] Author: Minerva GarciaRn) KATHE Zepeda Service: Emergency Medicine Author Type: Registered Nurse Type: ED Notes Filed: 04/25/2018 3:34 AM Note Text: Patient returned to the Emergency Department.[facility] ED NOTEHNO ID: [id number] Author: Valentine GarciaRn) KATHE Stratton Service: Emergency Medicine Author Type: Registered Nurse Type: ED Notes Filed: 04/25/2018 3:30 AM Note Text: Patient transported to wy/[facility] NOTEHNO ID: [id number] Author: Valentine GarciaRn) KATHE Stratton Service: Emergency Medicine Author Type: Registered Nurse Type: ED Notes Filed: 04/25/2018 3:21 AM Note Text: Warm b lanket given, labs drawn with IV start AND sent, medicated for paIN PER [facility] NOTEHNO ID: [id number]: Minerva (Rn) Duane, RNService: Emergency MedicineAuthor Type: Registered NurseType: ED NotesFiled: 04/25/2018 2:55 AMNote Text:c/o pain left lower abdomen that began around 12:30AM-- pain woke pt upand is assoc with nausea. Vomited small amt food particles upon arrival toed [facility] PROV NOTEon 45-73-6399TL PROV NOTEHNO ID: [id number]: STEPHANIE Gillervice: Emergency MedicineAuthor Type: PhysicianType: ED Provider NotesFiled: 04/25/2018 6:48 AMNote Text:ED Provider NotePatient Name: Valentin TorreMRN: [id number] DATE: 04/25/18HistoryPatient presents with:Abdominal PainPatient is a [...] in situ (SCCIS) of skinPAST SURGICAL HISTORYProcedure LateralityDate- ORTHOPEDICS SURGERY HX lt knee replacement , [...] Pupils are equal, round, and reactive to lig ht.Neck: Normal range of motion. Neck supple.Cardiovascular: Intact [...] 10.24 (*) 1.35 - 7.21 thou/cmm Abs. [place] 0.84 (*) 0.19 - 0.80 thou/cmm All other components within normal limitsLIPASE BLOOD (AK,AV,EU,FV,HL,KUSH,MM,SP)MDRD GFRProceduresMedical Decision MakingMDMHe should history and physical examination consistent with left- sidedureteral calculus. It's also possible that he has [...] 5out of 10.Once his renal function came backas normal and given Toradol 30 mg IVpush [...] measuring approximately 3 mm and causing mild righthydroureteronephrosis.Bilateral, nonobstructive, nephrolithiasis.No acute appendicitis, bowel obstruction or intra-abdominal free air.Incidental finding: Please consider multiphase MRI to assess the righthepaticlesionAt this point the patient was pain-free. I discussed the hepatic lesionand ordered that he receive Flomax 0.4 mg by mouth here. He was given aprescription for Flomax, Vicodin, and Zofran. He is to follow up withurology as an outpatient. They're from [place] and he will follow-upwith the urologist there. He was discharged home in improved condition.He is happy with his care and comfortable with the plan.ED Course / Clinical ImpressionClinical Impressions as of Apr 25 0647Ureteral calculus, leftHydronephrosis with urinary obstructiondue to renal calculusPlanSIGNATURE: Jose De Jesus Gill MD04/25/18 0648 [facility] HospitalHemogram/Diffon 89-59-7739Zmj. Baso0.02 thou/cmmNormal0.00-0.08[facility] System GlenbeighComment on above:Performed By: #### SCBCD ####[address] [address]Zgg. Mono0.84 thou/cmmHigh0.19-0.80[facility] System GlenbeighComment on above:Performed By: #### SCBCD ####[address] [address]Qow. Neut (ANC)10.24 thou/cmmHigh1.35-7.21[facility] SystemComment on above:Performed By: #### SCBCD ####[facility] [place], [place] [address]Spjszpwey/100 WBC Auto (Bld)0.2 % NormalAcmc Healthcare System GlenbeighComment on above:Performed By: #### SCBCD ####[facility] [place], [place] [address] Eosinophils0.04 thou/cmmNormal0.00-0.36[facility] SystemComment on above:Performed By: #### SCBCD ####[address] [address]Sqaizwskszh/100 leukocytes0.3 %NormalAcmc Healthcare System GlenbeighComment on above:Performed By: #### SCBCD ####[address] [address]Wzgekdmulrb distribution width Auto Ratio (RBC)13.7 %Awiepr92.8-14.5ABaptist Memorial HospitalComment on above: Performed By: #### SCBCD ####[address] [address]Szvgfzrgzqrc (RBC)5.26 mil/cmmNormal4.22-5.80[facility] System GlenbeighComment on above:Performed By: #### SCBCD ####[address] [address]Fopcbdwcae (HCT)47.0 % Herwfd76.6-50.7ABaptist Memorial HospitalComment on above:Performed By: #### SCBCD ####[address] [address] Hemoglobin mass conc (Bld)16.2 g/pRSktmce25.2-17.4AWheeling Hospital System Comment on above:Performed By: #### SCBCD ####[address] [address]Nrjynfrxnzb1.83 thou/cmmNormal0.68-2.93 [facility] GlenbeighComment on above:Performed By: #### SCBCD ####[address], [place] [address]Etgzrtllzbl/100 leukocytes6.9 %NormalParkview Lagrange Hospital SystemComment on above:Performed By: #### SCBCD ####[facility] [place], [place] [address]ZVH79.8 aiWxmbzq40.4-32.8[place] [facility] SystemComment on above: Performed By: #### SCBCD ####[facility] [place], [place] [address]GPYS mass conc (RBC)34.5 %Hasgrd97.9-35.6AkrCamden General Hospital Health SystemComment on above:Performed By: #### SCBCD ####[address] [address]KDY88.4 cHVpdobk87.8-95.6AWheeling Hospital SystemComment on above:Performed By: #### SCBCD ####[address] [address]Nwjsizfsc/100 leukocytes 7.0 %NormalParkview Lagrange Hospital SystemComment on above:Performed By: #### SCBCD ####[address] [address]Jpxpmhdx mean volume (PMV)10.1 fLNormal8.8-12.1AWheeling Hospital SystemComment on above:Performed By: #### SCBCD ####[address] [address]Ixlalxvqs962 thou/hipTytuzg598-534Ltazw General Health SystemComment on above:Performed By: #### SCBCD ####[address] [address]Jrs Boutnfrkka83.6 %NormalParkview Lagrange Hospital SystemComment on above:Performed By: #### SCBCD ####[address] [address]JMB (Leukocytes)12.0 thou/cmmHigh4.4-9.7AkrInova Women's Hospital SystemComment on above:Performed By: #### SCBCD ####[address], [place] [address]Wjwdkl Bloodon 45-81-1902Owduou Uwwml923 U/CDhtkvt96-811ClxauParkview Lagrange Hospital SystemComment on above:Performed By: #### SLIP ####[address] [address]MEBY eGFRon 95-27-1890cEGO (non-black)mL/min/{1.73_m2}Normal>60mL/min/1.48v7YfpdiParkview Lagrange Hospital System Comment on above:Result Comment: If the patient is , multiply the result by 1.210.Performed By: #### SGFR ####[address] [address]Attuoervlo Routineon 71-97-9063Aipkhbbjv UrineNegativeNormalNegativeParkview Lagrange Hospital SystemComment on above:Performed By: #### SURIN ####[address] [address]Wa Cells UrineNONENormal0-5AkrInova Women's Hospital SystemComment on above:Performed By: #### SURIN ####[address] [address]Lgsjrvapso,UrineTRACE-INTACTAbnormalNegativeParkview Lagrange Hospital SystemComment on above:Performed By: #### SURIN ####[address] [address]Fzbiiw Urine15 mg/dL AbnormalNegativeParkview Lagrange Hospital SystemComment on above:Performed By: #### SURIN ####[address] [address] Nitrites UrineNegativeNormalNegativeParkview Lagrange Hospital SystemComment on above: Performed By: #### SURIN ####[address] [address]Gjftilk UrineNegativeNormalNegativeParkview Lagrange Hospital SystemComment on above:Performed By: #### SURIN ####[address] [address]Avrcqmat [place], Ur1.020Normal 1.005-1.030[facility] Hospital SystemComment on above:Performed By: #### SURIN ####[facility] [place] [address]Urine, appearanceCLEARNormFour County Counseling Center SystemComment on above:Performed By: #### SURIN ####[facility] [place] [address]Urine, bacteria in sedimentNONENormalNoneAWheeling Hospital SystemComment on above:Performed By: #### SURIN ####[facility] [place] [address]Urine, colorYELLOWNormalAWheeling Hospital SystemComment on above:Performed By: #### SURIN ####[place] [address]Urine, erythrocytes in sediment by ckbk4-49Wzmfwg6-6Qradm General Health SystemComment on above:Performed By: #### SURIN ####[place] [address] Urine, glucose presenceNegativeNormalNegativeParkview Lagrange Hospital SystemComment on above:Performed By: #### SURIN ####[place] [address]Urine, leukocytes in yebewudfv7-2Wygpky7-9Yjesv General Health SystemComment on above:Performed By: #### SURIN ####[place] [address]Urine, pH7.0 [pH]Normal 5.0-8.0[facility] SystemComment on above:Performed By: #### SURIN ####[place] [address] Urobilinogen,Ur0.2 EU/dLNormal0.0-1.0[facility] SystemComment on above:Performed By: #### SURIN ####[place] [address]WBC (Leukocytes)NegativeNormalNegativeParkview Lagrange Hospital SystemComment on above:Performed By: #### SURIN ####[place] [address] Vital Signs Date TimeVital SignValuePerforming GinwkljrqXdthikag66-09-8142 11:17-0400 Diastolic blood elylppje85 mm[Hg]Sascha Furlong DO Work Phone: [facility]09-03-2025 11:17-0400 Heart rate88 /minDennis Furlong DO Work Phone: [place] [facility]09-03-2025 11:17-0400 Systolic blood fbhymweh663 mm[Hg]Sascha Furlong DO Work Phone: [facility]09-03-2025 10:04-0400 Body bwoqwi666.18 cmDennis Furlong DO Work Phone: [facility]09-03-2025 10:04-0400 Body zhhjdi52.06 kgDennis Furlong DO Work Phone: [place] [facility]08-27-2025 13:46-0400 Body fnabdt036.7 cmShabnam Connell PILLOW FILLER Work Phone: [facility] SpringfieldLdqjgxgfqw50-37-6850 13:46-0400Body mass index (BMI) [Ratio]33.75 kg/a9Zxsxgccsoren Connell PILLOW FILLER Work Phone: [facility] SpringfieldVlvpktxmvd70-76-6705 13:46-0400Body kgcuqb576.7 kgFesoren Harrisongel PILLOW FILLER Work Phone: [facility] SpringfieldBwbeyfennp69-79-6795 13:46-0400Diastolic blood mm[Hg]Shabnam Connell PILLOW FILLER Work Phone: [facility] SpringfieldYlpqyjsorb28-07-7770 13:46-0400Systolic blood anjbcygb256 mm[Hg]Shabnam Connell PILLOW FILLER Work Phone: [facility] SpringfieldNfmebmfnib67-61-5047 11:45-0400Body ubdsdd544.2 cmKali Conklin DPM Work Phone: [facility] SpringfieldNthtwqoqzj38-70-6260 11:45-0400Body mass index (BMI) [Ratio]34.14 kg/h8InhtqczbKali Conklin DPM Work Phone: [facility] SpringfieldJehvhuqbit90-46-5052 11:45-0400Body clpwku95.88 kgKali Conklin DPM Work Phone: [facility] SpringfieldUcqyjcpcyv16-84-7578 11:45-0400Respiratory rate18 /minKali Conklin DPM Work Phone: [facility] SpringfieldDqiomqvofk07-83-0807 09:38-0400Diastolic blood hrpqnsoy63 mm[Hg]Alfonso Trujillo DO Work Phone: [facility]07-31-2025 09:38-0400 Systolic blood ktabhapz507 mm[Hg]Alfonso Trujillo DO Work Phone: [facility]07-31-2025 09:37-0400 Body pwympc431.2 cmWiderek Ronnie DO Work Phone: [facility]07-31-2025 09:37-0400 Body mass index (BMI) [Ratio]34.74 kg/v5Vofmjas Ronnie DO Work Phone: [facility]07-31-2025 09:37-0400 Body hikdwh082.61 kgWiderek Ronnie DO Work Phone: [facility]07-31-2025 09:37-0400 Heart rate69 /minAlfonso Callahandon DO Work Phone: [facility]07-22-2025 13:57-0400 Body nyzlnx523.2 cmMyra Daiglezer SUPERVISOR COMPOSING ROOM-SENIOR TEST ANALYST Work Phone: [facility]07-22-2025 13:57-0400Body mass index (BMI) [Ratio]34.61 kg/m2Myra Orlando SUPERVISOR COMPOSING ROOM-SENIOR TEST ANALYST Work Phone: [facility]07-22-2025 13:57-0400Body rgziuicdjvx10.8 [degF]Myra Orlando SUPERVISOR COMPOSING ROOM-SENIOR TEST ANALYST Work Phone: [facility]07-22-2025 13:57-0400Body svkuaw377.25 kgMyra Daiglezer SUPERVISOR COMPOSING ROOM-SENIOR TEST ANALYST Work Phone: [facility]aka-[facility]07-22-2025 13:57-0400Diastolic blood eqbmzumk93 mm[Hg]Myra Diezotzer SUPERVISOR COMPOSING ROOM-SENIOR TEST ANALYST Work Phone: [facility] Hospitalaka-[facility]07-22-2025 13:57-0400Heart rate 73 /minJamalle Rgotzer SUPERVISOR COMPOSING ROOM-SENIOR TEST ANALYST Work Phone: [facility] CenterBe[facility]07-22-2025 13:57-0400 Respiratory rate20 /minKyle Krotzer SUPERVISOR COMPOSING ROOM-SENIOR TEST ANALYST Work Phone: [facility] HospitalImpactGames Minjeg64-91-3461 13:57-5856MtW8% (BldA) [Mass fraction]96 %Myra Diezotzer SUPERVISOR COMPOSING ROOM-SENIOR TEST ANALYST Work Phone: [facility] HospitalImpactGames Pebnwo72-83-0744 13:57-0400Systolic blood prbipydl061 mm[Hg]Myra Daiglezer SUPERVISOR COMPOSING ROOM-SENIOR TEST ANALYST Work Phone: [facility] Hospitalaka-[facility]07-08-2025 14:42-0400Body .2 cmGregMILIng DO Work Phone: [facility] Hospitalaka-[facility] networks07-08-2025 14:42-0400Body mass index (BMI) [Ratio]35.01 kg/d8Goixyc MuciMedng DO Work Phone: [facility] Hospitalaka-[facility] networks07-08-2025 14:42-0400Body oicwfyfltar11.5 [degF]Sascha MuciMedng DO Work Phone: [facility] Hospitalaka-[facility]07-08-2025 14:42-0400Body mziqdy911.42 kgDennis MuciMedng DO Work Phone: [facility] Hospitalaka-[facility]07-08-2025 14:42-0400Diastolic blood lgrexptx59 mm[Hg]Sascha Furlong DO Work Phone: [facility]07-08-2025 14:42-0400Heart rate 72 /Matthewis Furlong DO Work Phone: [facility]07-08-2025 14:42-0400 Respiratory rate20 /minDyuis Furlong DO Work Phone: [facility]07-08-2025 14:42-8925ZtT4% (BldA) [Mass fraction]96 %Sascha Marielong DO Work Phone: [facility]07-08-2025 14:42-0400Systolic blood wuinfrgd212 mm[Hg]Sascha Marielong DO Work Phone: [facility]06-25-2025 10:25-0400Body iiqubc569.2 cmFesoren Connell PILLOW FILLER Work Phone: [facility] SpringfieldZigvdwcwjy80-45-7053 10:25-0400Body mass index (BMI) [Ratio]34.24 kg/p0Thoquhisoren Harrisongel PILLOW FILLER Work Phone: [facility] SpringfieldAxqtvzsulp97-58-5752 10:25-0400Body zwebhx67.16 kgFesoren Harrisongel PILLOW FILLER Work Phone: [facility] SpringfieldFsvxbnmsid14-66-8540 10:25-0400Diastolic blood wavucmma27 mm[Hg]Shabnam Christycristopher PILLOW FILLER Work Phone: [facility] SpringfieldQsrkkgpdql49-06-7025 10:25-0400Systolic blood aqbcyfbs689 mm[Hg]Shabnam Harrisongel PILLOW FILLER Work Phone: [facility] SpringfieldOcsmlxmndg33-80-2635 09:30-0400Body mekfgi358.2 cmDennis Cynthialong DO Work Phone: [facility]06-17-2025 09:30-0400Body mass index (BMI) [Ratio]34.46 kg/h7Wrwaef Cynthialong DO Work Phone: [facility]06-17-2025 09:30-0400Body tefmol31.79 kgDenjennifer Marielong DO Work Phone: [facility] [employer] Jkaeab51-24-6233 09:30-0400Diastolic blood wkzcaqzu77 mm[Hg]Sascha Marielong DO Work Phone: [facility] [employer] Elgwdc70-31-9208 09:30-0400Systolic blood kxnubpmx010 mm[Hg]Sascha Marielong DO Work Phone: [facility]05-27-2025 16:35-0400Body .2 cmDenjennifer Marielong DO Work Phone: [facility]05-27-2025 16:35-0400Body mass index (BMI) [Ratio]33.16 kg/q9Xzzofo Furlong DO Work Phone: [facility]05-27-2025 16:35-0400Body shqnawblkgd68.39 [degF]Sascha Marielong DO Work Phone: [facility] [employer] Qihpvr81-17-0942 16:35-0400Body .07 kgDenjennifer Marielong DO Work Phone: [facility]05-27-2025 16:35-0400Diastolic blood zoabdqge11 mm[Hg]Sascha Marielong DO Work Phone: [facility] [employer] Nvksck27-89-7993 16:35-0400Heart rate 86 /Champ Marielong DO Work Phone: [facility] [employer] Fvgrbs10-80-1805 16:35-0400 Respiratory rate20 /minDennis Cynthialong DO Work Phone: [facility]05-27-2025 16:35-2218AoF5% (BldA) [Mass fraction]98 %Sascha Marielong DO Work Phone: [facility]05-27-2025 16:35-0400Systolic blood grenmgqq166 mm[Hg]Sascha Furlong DO Work Phone: [facility]05-20-2025 16:02-0400Body lzxzhe432.7 cmKali Mk DPM Work Phone: [facility] SpringfieldMlaekqlwfh73-14-3040 16:02-0400Body mass index (BMI) [Ratio]32.54 kg/h3MtbgrjsnKali Conklin DPM Work Phone: [facility] SpringfieldMvjojlghsq33-13-2745 16:02-0400Body wjspso81.07 kgKali Mk DPM Work Phone: [facility] SpringfieldApwstcmdbv19-74-2877 16:02-0400Respiratory rate16 /minKali Conklin DPM Work Phone: [facility] SpringfieldYhhcpnxduv67-77-3434 10:32-0400Body bfcbwu707.7 cmWhit Taylor MD Work Phone: [facility] SpringfieldDcbqyzyryv22-80-6907 10:32-0400Body mass index (BMI) [Ratio]32.54 kg/e6XnirblnWhit Taylor MD Work Phone: [facility] SpringfieldDneafuqnrf62-41-4930 10:32-0400Body pjzloq37.07 kgWhit Taylor MD Work Phone: [facility] SpringfieldArvqnpdlcw87-17-3447 10:32-0400Diastolic blood jwpetqwz18 mm[Hg]Whit Taylor MD Work Phone: [facility] SpringfieldMbhltvvpso91-30-8071 10:32-0400Systolic blood mm[Hg]Whit Taylor MD Work Phone: [facility] SpringfieldMhqraxmzqo80-24-1738 13:41-0400Body zllzbu119.2 cmDennis Furlong DO Work Phone: [facility]04-07-2025 13:41-0400Body mass index (BMI) [Ratio]33.35 kg/h6Seoaxb Furlong DO Work Phone: [facility]04-07-2025 13:41-0400Body tyabdmfftyd67.5 [degF]Sascha Marielong DO Work Phone: [facility]04-07-2025 13:41-0400Body qwbdil62.62 kgSascha Marielong DO Work Phone: [facility]04-07-2025 13:41-0400Diastolic blood tlwajeyl36 mm[Hg]Sascha Marielong DO Work Phone: [facility]04-07-2025 13:41-0400Heart rate 89 /Champ Marielong DO Work Phone: [facility]04-07-2025 13:41-0400 Respiratory rate20 /Matthewis Cynthialong DO Work Phone: [facility]04-07-2025 13:41-7573PwR1% (BldA) [Mass fraction]96 %Sascha Lazcanong DO Work Phone: [facility]04-07-2025 13:41-0400Systolic blood bvfuislz960 mm[Hg]Sascha Sutton DO Work Phone: [facility]04-03-2025 09:17-0400Body .7 cmMameameya Conklin DPM Work Phone: [facility]Jibaqwopbo95-24-3407 09:17-0400Body mass index (BMI) [Ratio]32.84 kg/u6Nokvzytg Brown DPM Work Phone: [facility] SpringfieldBipqmpytuo82-62-4940 09:17-0400Body yhnbkm86.98 kgMameameya Conklin DPM Work Phone: [facility] SpringfieldRxudpvhayx24-57-2998 09:17-0400Respiratory rate16 /minMameameya Conklin DPM Work Phone: [facility] SpringfieldPmsrurbdim17-91-0685 07:42-0400Body temperature 97.8 [degF]Sascha Marielong DO Work Phone: 1(419)[address] [place], [place] 9672703-29-2025 07:42-0400 Diastolic blood abcxjlln78 mm[Hg]Sascha Furlong DO Work Phone: 1(521)[facility] [place], [place] 6556403-29-2025 07:42-0400 Heart rate74 /minDennis Furlong DO Work Phone: 1(496)[address] [place], [place] 9672703-29-2025 07:42-0400 Respiratory rate16 /minDennis Furlong DO Work Phone: 1(295)[facility] [place], [place] 6556403-29-2025 07:42-0400 SaO2% (BldA) [Mass fraction]97 %Sascha Furlong DO Work Phone: 1(487)[address] [place], [place] 9672703-29-2025 07:42-0400 Systolic blood qgwaweyr215 mm[Hg]Sascha Furlong DO Work Phone: 1(715)[address] [place], [place] 9672703-29-2025 05:51-0400 Body ojaqyb537.9 kgDennis Furlong DO Work Phone: 1(442)[address] [place], [place] 9672703-28-2025 14:59-0400 Body mrxzwe198.72 cmDennis Furlong DO Work Phone: 1(057)[facility] [place], [place] 6556403-28-2025 14:59-0400 Body uiozxxizmfa85 [degF]Sascha Furlong DO Work Phone: 1(725)[facility] [place], [place] 6556403-28-2025 14:59-0400 Body kgDennis Furlong DO Work Phone: 1(252)[facility] [place], [place] 6556403-28-2025 14:59-0400 Diastolic blood rmiinrcb15 mm[Hg]Sascha Furlong DO Work Phone: 1(976)4-[address] [place], [place] 6556403-28-2025 14:59-0400 Heart rate70 /minDennis Furlong DO Work Phone: 1(600)[address] [place], [place] 6556403-28-2025 14:59-0400 Respiratory rate18 /minDennis Furlong DO Work Phone: [facility]03-28-2025 14:59-0400 SaO2% (BldA) [Mass fraction]97 %Sascha Marielong DO Work Phone: [facility]03-28-2025 14:59-0400 Systolic blood hiwterce497 mm[Hg]Sascha Marielong DO Work Phone: [facility]03-20-2025 10:07-0400 Body mydyxu819.7 cmMameameya Conklin DPM Work Phone: [facility] SpringfieldMzbmiecchc83-72-1242 10:07-0400Body mass index (BMI) [Ratio]32.84 kg/e4Qiuzuoqt Brown DPM Work Phone: [facility] SpringfieldLpnvwmophi33-53-0702 10:07-0400Body lellsb80.98 kgMameameya Conklin DPM Work Phone: [facility] SpringfieldXdqmjfjdat08-66-6962 10:07-0400Diastolic blood didghpfk22 mm[Hg]Kali Conklin DPM Work Phone: [facility] SpringfieldFbxttlbfee07-71-3445 10:07-0400Heart rate78 /min Kalilorenza Conklin DPM Work Phone: [facility] SpringfieldDervsspusy14-77-5366 10:07-0400Systolic blood gdljpesp720 mm[Hg]Kali Conklin DPM Work Phone: [facility] SpringfieldIekltklice36-91-4011 16:47-0400Body ywqkcn193.7 cmMameameya Conklin DPM Work Phone: [place] [address]Cpnpgizazo35-96-4518 16:47-0400Body mass index (BMI) [Ratio]32.84 kg/s4Cweabxxr Brown DPM Work Phone: [facility] SpringfieldMwggidnucs11-50-5435 16:47-0400Body tmvlhy98.98 kgMameameya Conklin DPM Work Phone: [place] [address]Hsebhijbrj67-38-8900 16:47-0400Respiratory rate18 /minKali Conklin DPM Work Phone: [facility] SpringfieldTdfxpntkgf66-74-5902 14:02-6449UkB8% (BldA) [Mass fraction]96 %Sascha Furlong DO Work Phone: [facility]03-11-2025 13:57-0400Body vogntu251.2 cmDennis Furlong DO Work Phone: [facility]03-11-2025 13:57-0400Body mass index (BMI) [Ratio]33.66 kg/n7Yupkdl Furlong DO Work Phone: [facility]03-11-2025 13:57-0400Body edmfpkrembc07.39 [degF]Sascha Furlong DO Work Phone: [facility]03-11-2025 13:57-0400Body .52 kgDennis Furlong DO Work Phone: [facility]03-11-2025 13:57-0400 Respiratory rate20 /minDennis Furlong DO Work Phone: [facility]03-07-2025 11:32-0500Body hjfnxe647.2 cmDennis Furlong DO Work Phone: [facility]03-07-2025 11:32-0500Body mass index (BMI) [Ratio]34.51 kg/x7Dqjzae Furlong DO Work Phone: [facility]03-07-2025 11:32-0500Body jaurjpmyhuu57.1 [degF]Sascha Furlong DO Work Phone: [facility]03-07-2025 11:32-0500Body pqhewv12.97 kgDennis Furlong DO Work Phone: [facility]03-07-2025 11:32-0500Diastolic blood vneletpp68 mm[Hg]Sascha Furlong DO Work Phone: [facility]03-07-2025 11:32-0500Heart rate 82 /minDennis Furlong DO Work Phone: [facility]03-07-2025 11:32-0500 Respiratory rate20 /minDennis Furlong DO Work Phone: [facility]03-07-2025 11:32-1244WcZ7% (BldA) [Mass fraction]98 %Sascha Furlong DO Work Phone: [facility]03-07-2025 11:32-0500Systolic blood nbeidijk909 mm[Hg]Sascha Furlong DO Work Phone: [facility]03-06-2025 11:01-0500Body .7 cmKali Conklin DPM Work Phone: [facility] SpringfieldIadmuiccet00-64-1201 11:01-0500Body mass index (BMI) [Ratio]32.84 kg/a8ScwgphgqKali Conklin DPM Work Phone: [facility] SpringfieldOqjxckrjjn40-13-6381 11:01-0500Body jaddaa19.98 kgKali Conklin DPM Work Phone: [facility] SpringfieldFlithhwrwi09-81-1076 11:01-0500Respiratory rate18 /minKali Conklin DPM Work Phone: [facility] SpringfieldRdavootxuu59-84-4440 15:54-0500Diastolic blood lnihmbtl62 mm[Hg]Sascha Furlong DO Work Phone: [facility]02-22-2025 15:54-0500 Heart rate72 /minDennis Furlong DO Work Phone: [facility]02-22-2025 15:54-0500 Respiratory rate20 /minDennis Furlong DO Work Phone: [facility]02-22-2025 15:54-0500 SaO2% (BldA) [Mass fraction]97 %Sascha Furlong DO Work Phone: [phone]02-22-2025 15:54-0500 Systolic blood noymjjrm609 mm[Hg]Sascha Furlong DO Work Phone: 1([phone]02-22-2025 12:50-0500 Body rhatol683.72 cmDennis Furlong DO Work Phone: 1(332)662-[address] [place], [place] 6556402-22-2025 12:50-0500 Body neplxbhnpwd47.6 [degF]Sascha Furlong DO Work Phone: 1(121)[address] [place], [place] 6556402-22-2025 12:50-0500 Body ncjowu57.25 kgDennis Furlong DO Work Phone: 1(335)[address] [place], [place] 4651002-22-2025 11:46-0500 Body uowroyvwybu01.9 [degF]Sascha Furlong DO Work Phone: 1(346)[facility] [place], [place] 6556402-22-2025 11:46-0500 Body qcqnyn69.42 kgDennis Furlong DO Work Phone: 1(599)[address] [place], [place] 6556402-22-2025 11:46-0500 Diastolic blood cvmlturs06 mm[Hg]Sascha Furlong DO Work Phone: 1(468)[facility] [place], [place] 6556402-22-2025 11:46-0500 Heart rate80 /minDennis Furlong DO Work Phone: 1(140)8-[address] [place], [place] 6556402-22-2025 11:46-0500 SaO2% (BldA) [Mass fraction]97 %Sascha Furlong DO Work Phone: 1(854)[phone]02-22-2025 11:46-0500 Systolic blood mm[Hg]Sascha Furlong DO Work Phone: 1([phone])816-66[facility]02-20-2025 13:21-0500 Body .7 cmKali Conklin M Work Phone: [facility] SpringfieldYmxqzboycm80-54-2314 13:21-0500Body mass index (BMI) [Ratio]32.84 kg/v8Nrxfnjlu Brown DPM Work Phone: [facility] SpringfieldHmbqbxyeyx83-03-9319 13:21-0500Body ubxxrz63.98 kgKranthisamreen Conklin DPM Work Phone: [facility] SpringfieldYytykhchnr69-51-9172 13:21-0500Respiratory rate18 /minMameameya Conklin DPM Work Phone: [facility] SpringfieldVtfusmruwn70-10-1945 11:39-0500Body tzwyeq222.7 cmWhit Taylor MD Work Phone: [facility] SpringfieldPjzrtnhlfe00-54-4666 11:39-0500Body mass index (BMI) [Ratio]32.84 kg/r8Inbxfrhalondra Taylor MD Work Phone: [facility] SpringfieldUmlultpyho31-97-0864 11:39-0500Body asnody46.98 kgWhit Taylor MD Work Phone: [facility] SpringfieldVmjlnrcjle00-84-0738 14:20-0500Body idoijb133.7 cmBenjames Snowdencek DO Work Phone: [facility] SpringfieldJpndjujvxa60-50-3371 14:20-0500Body mass index (BMI) [Ratio]32.99 kg/i4Chwvysin Murcek DO Work Phone: [facility] SpringfieldTyqsjbnqqm58-39-4964 14:20-0500Body wmhzio59.43 kgBenjamin Murcek DO Work Phone: [facility] SpringfieldAgnuapseiu72-90-5149 10:11-0500Body pvxqas008.2 cmDennis Furlong DO Work Phone: [facility]01-27-2025 10:11-0500Body mass index (BMI) [Ratio]33.48 kg/n1Scvzlu Furlong DO Work Phone: [facility]01-27-2025 10:11-0500Body .59 [degF]Sascha Furlong DO Work Phone: [facility]01-27-2025 10:11-0500Body oafcwz31.98 kgSascha Marielong DO Work Phone: [facility]01-27-2025 10:11-0500Diastolic blood rygeyvzv42 mm[Hg]Sascha Marielong DO Work Phone: [facility]01-27-2025 10:11-0500Heart rate 86 /Matthewis Cynthialong DO Work Phone: [facility]01-27-2025 10:11-0500 Respiratory rate20 /minDennis Furlong DO Work Phone: [facility]01-27-2025 10:11-4273JyX0% (BldA) [Mass fraction]96 %Sascha Marielong DO Work Phone: [facility]01-27-2025 10:11-0500Systolic blood ikcvlzeu472 mm[Hg]Sascha Lazcanong DO Work Phone: [facility]01-16-2025 09:58-0500Body tebjxk764.7 cmKali Mk DPM Work Phone: [facility] SpringfieldOavmstwuvs29-08-3141 09:58-0500Body mass index (BMI) [Ratio]32.99 kg/y4Hhxteknq Mk DPM Work Phone: [facility] SpringfieldWszitcrlqj84-81-7142 09:58-0500Body djavrb70.43 kgNicdamianameya Conklin DPM Work Phone: [facility] SpringfieldKdtgbxhsdy98-84-0112 09:58-0500Respiratory rate16 /minMameameya Conklin DPM Work Phone: [facility] SpringfieldFmobjfnfeq24-71-3154 12:55-0500Body mass index (BMI) [Ratio]32.99 kg/r6Mttspzkb Mk DPM Work Phone: [facility] SpringfieldOsgruyyrle68-70-8385 12:55-0500Body fimilw60.43 kgKali ARIASM Work Phone: [facility] SpringfieldYmqzjnrhyb17-47-7171 09:44-0500Body wnadrp099.7 cmWhit Taylor MD Work Phone: [facility] SpringfieldXhchkkgryc64-99-9485 09:44-0500Body mass index (BMI) [Ratio]33.12 kg/h4DxtdejaWhit Taylor MD Work Phone: [facility] SpringfieldEgprcillqf53-33-3470 09:44-0500Body hakxpd16.79 kgWhit Taylor MD Work Phone: [facility] SpringfieldHuqvvojwej74-74-8978 14:06-0500Body arhgcz846.2 cmDennis Cynthialong DO Work Phone: [facility] [employer] Ofbwam07-15-2187 14:06-0500Body mass index (BMI) [Ratio]34.43 kg/m7Apxdrl Cynthialong DO Work Phone: [facility] [employer] Qqqenz18-42-0667 14:06-0500Body noiaqgehtnv20.39 [degF]Sascha Cynthialong DO Work Phone: [facility]11-19-2024 14:06-0500Body epewye71.7 kgDennis Cynthialong DO Work Phone: [facility]11-19-2024 14:06-0500Diastolic blood lixcowhu09 mm[Hg]Sascha Furlong DO Work Phone: [facility] [employer] Babkwg30-46-2646 14:06-0500Heart rate 90 /minDennis Furlong DO Work Phone: [facility]11-19-2024 14:06-0500 Respiratory rate22 /minDennis Furlong DO Work Phone: [facility]11-19-2024 14:06-9588HpO2% (BldA) [Mass fraction]97 %Sascha Furlong DO Work Phone: [facility] [employer] Mnvbuf75-01-8064 14:06-0500Systolic blood fjwcqadt765 mm[Hg]Sascha Marielong DO Work Phone: [facility] [employer] Kylzwb28-50-1091 13:38-0500Body mass index (BMI) [Ratio]34.05 kg/l7Csibuu Furlong DO Work Phone: [facility]11-04-2024 13:38-0500Body oprbkiudbfw35.1 [degF]Sascha Marielong DO Work Phone: [facility]11-04-2024 13:38-0500Body vmxfep93.61 kgDenjennifer Marielong DO Work Phone: [facility]11-04-2024 13:38-0500Diastolic blood aigpmvsn91 mm[Hg]Sascha Marielong DO Work Phone: [facility]11-04-2024 13:38-0500Heart rate 80 /minDennis Cnythialong DO Work Phone: [facility]11-04-2024 13:38-6331ZeS8% (BldA) [Mass fraction]95 %Sascha Marielong DO Work Phone: [facility]11-04-2024 13:38-0500Systolic blood mm[Hg]Sascha Marielong DO Work Phone: [facility]10-30-2024 09:08-0400Body xbawub850.72 cmMD Edenilson Mcleod Work Phone: [facility]10-30-2024 09:08-0400 Body mass index (BMI) [Ratio]32.2 kg/m2MD Edenilson Mcleod Work Phone: [facility]10-30-2024 09:08-0400 Body xougetgsvwl72.7 [degF]MD Edenilson Mcleod Work Phone: [facility]10-30-2024 09:08-0400 Body .16 kgMD Edenilson Meganmaria ines Work Phone: [facility]10-30-2024 09:08-0400 Diastolic blood wgchdozk56 mm[Hg]MD Edenilson Mcleod Work Phone: [facility]10-30-2024 09:08-0400 Heart rate85 /minMD Edenilson Mcleod Work Phone: [facility]10-30-2024 09:08-0400 Respiratory rate18 /minMD Edenilson Mcleod Work Phone: [facility]10-30-2024 09:08-0400 SaO2% (BldA) [Mass fraction]94 %MD Edenilson Mcleod Work Phone: [facility]10-30-2024 09:08-0400 Systolic blood plfafaen978 mm[Hg]MD Edenilson Mcleod Work Phone: [facility]10-14-2024 10:01-0400 Blood Pressure LocationPatrichima MUNIZ [facility]10-14-2024 10:01-0400Body agjobsvxvvd97.6 [degF]Zac MUNIZ [facility]10-14-2024 10:01-0400Diastolic blood mm[Hg]Zac MUNIZ [facility]10-14-2024 10:01-0400Heart rate71 /minPatrick MUNIZ [facility]10-14-2024 10:01-0400Respiratory rate16 /minPatrick MUNIZ [facility]10-14-2024 10:01-0400Systolic blood xjsihvkj163 mm[Hg]Zac MUNIZ [facility]10-09-2024 10:46-0400Body .72 cmMD Edenilson Mcleod Work Phone: [facility]10-09-2024 10:46-0400 Body mass index (BMI) [Ratio]32.2 kg/m2MD Edenilson Mcleod Work Phone: [facility]10-09-2024 10:46-0400 Body .16 kgMD Edenilson Mcleod Work Phone: [facility]09-27-2024 14:21-0400 Body bsyfzl406.7 cmKali Conklin DPM Work Phone: [facility] SpringfieldYbznvnnvhz41-94-1361 14:21-0400Body mass index (BMI) [Ratio]32.39 kg/r8RlwiehybKali Conklin DPM Work Phone: [facility] SpringfieldSjzztyzqim33-26-3054 14:21-0400Body taucye92.62 kgKali Conklin DPM Work Phone: [facility] SpringfieldUxupcwdlee82-22-5735 14:21-0400Diastolic blood wjasdycl31 mm[Hg]Kali Conklin DPM Work Phone: [facility] SpringfieldNdwocexhdc77-48-6504 14:21-0400Heart rate74 /min Kali Conklin DPM Work Phone: [facility] SpringfieldFenivdpnad69-68-4765 14:21-0400Respiratory rate18 /minKali Conklin DPM Work Phone: [facility] SpringfieldSljeafcghs26-41-4256 14:21-0400Systolic blood rgorxvod102 mm[Hg]Kali Conklin DPM Work Phone: [facility] SpringfieldFsehvjdqrr90-31-7619 14:16-0400Body ndwtgy464.2 cmDennis Furlong DO Work Phone: [facility]07-25-2024 14:16-0400Body mass index (BMI) [Ratio]33.3 kg/b1Bvrfpt Furlong DO Work Phone: [facility]07-25-2024 14:16-0400Body kvkfdgkjygf09.9 [degF]Sascha Furlong DO Work Phone: [facility]07-25-2024 14:16-0400Body hzpygz59.44 kgDennis Furlong DO Work Phone: [facility]07-25-2024 14:16-0400Diastolic blood nbsygvcb05 mm[Hg]Sascha Furlong DO Work Phone: [facility]07-25-2024 14:16-0400Heart rate 70 /minDyuis Furlong DO Work Phone: [facility]07-25-2024 14:16-0400 Respiratory rate18 /minDennis Furlong DO Work Phone: [facility]07-25-2024 14:16-0976AvD8% (BldA) [Mass fraction]99 %Sascha Furlong DO Work Phone: [facility]07-25-2024 14:16-0400Systolic blood brsrnozi240 mm[Hg]Sascha Marielong DO Work Phone: [facility]07-08-2024 08:56-0400Body thyduv024.72 cmDO Sascha Furlong Work Phone: [facility]07-08-2024 08:56-0400 Body mass index (BMI) [Ratio]31.8 kg/m2DO Sascha Furlong Work Phone: [facility]07-08-2024 08:56-0400 Body kgDO Sascha Marielong Work Phone: [facility]06-25-2024 14:48-0400 [facility]06-25-2024 14:48-0400Diastolic blood gwmizizs85 mm[Hg]LEAH BILL [facility]06-25-2024 14:48-0400Heart rate80 /minJENNIFER BILL [facility]06-25-2024 14:48-0400Respiratory rate16 /minJENNIFER BILL [facility]06-25-2024 14:48-0400Systolic blood gibmbomp413 mm[Hg]LEAH BILL [facility]06-11-2024 10:16-0400Body kcsqwa271.7 cmDennis Furlong DO Work Phone: [facility]06-11-2024 10:16-0400Body mass index (BMI) [Ratio]32.34 kg/t1Idfcde Furlong DO Work Phone: [facility]06-11-2024 10:16-0400Body pxyuwr39.44 kgDennis Furlong DO Work Phone: [facility]06-11-2024 10:16-0400Diastolic blood prvzbgal54 mm[Hg]Sascha Furlong DO Work Phone: [facility]06-11-2024 10:16-0400Systolic blood bgeuwxeq825 mm[Hg]Sascha Furlong DO Work Phone: [facility]06-04-2024 10:48-0400Body vujofy124.72 cmDO Sascha Furlong Work Phone: [facility]06-04-2024 10:48-0400 Body mass index (BMI) [Ratio]32.1 kg/m2DO SaschaVANCLlong Work Phone: 1(609)[address] [place], [place] 9672706-04-2024 10:48-0400 Body .76 kgDO Sascha [employer] Work Phone: 1(076)[address] [place], [place] 9672705-20-2024 12:35-0400 Diastolic blood uygntrkg26 mm[Hg]DO SaschaMILIng Work Phone: 1(896)[address] [place], [place] 9672705-20-2024 12:35-0400 Heart rate63 /minDO SaschaMonaeo Work Phone: 1(788)[address] [place], [place] 9672705-20-2024 12:35-0400 Respiratory rate16 /minDO SaschaMILIng Work Phone: 1(478)[address] [place], [place] 9672705-20-2024 12:35-0400 SaO2% (BldA) [Mass fraction]98 %DO [employer] Work Phone: 1(530)[address] [place], [place] 9672705-20-2024 12:35-0400 Systolic blood nvaobixd949 mm[Hg]DO SaschaVANCLlong Work Phone: 1(340)[address] [place], [place] 9672705-20-2024 12:05-0400 Inhaled oxygen flow rate4 L/LokeshO Sascha [employer] Work Phone: 1(382)[address] [place], [place] 9672705-20-2024 10:16-0400 Body rfjipc565.72 cmDO SaschaMILIng Work Phone: 1(912)[address] [place], [place] 9672705-20-2024 10:16-0400 Body mass index (BMI) [Ratio]32.1 kg/m2DO [employer] Work Phone: 1(735)[address] [place], [place] 9672705-20-2024 10:16-0400 Body axqxyi60 kgDO SaschaMILIng Work Phone: 1(859)[address] [place], [place] 9672705-20-2024 09:12-0400 Body owngcmzrhuc13.8 [degF]DO [employer] Work Phone: [facility]05-09-2024 11:070400 Body .72 cmDO Sascha Sutton Work Phone: [facility]05-09-2024 11:07-0400 Body mass index (BMI) [Ratio]32.2 kg/m2DO Sascha Sutton Work Phone: [facility]05-09-2024 11:070400 Body fzpsoo29.16 kgDO Saschajennifer Sutton Work Phone: [facility]04-30-2024 12:09-0400 Blood Pressure LocationAurora Orzech [facility]04-30-2024 12:09-0400Body .52 [degF]Daria Orzech [facility]04-30-2024 12:09-0400Diastolic blood vftlrgpu03 mm[Hg]Daria Orzech [facility]04-30-2024 12:09-0400Heart rate73 /minAurora Orzech [facility]04-30-2024 12:09-0400Respiratory rate19 /minAurora Orzech [facility]04-30-2024 12:09-0400Systolic blood fvhzuudv294 mm[Hg]Daria Orzech [facility]04-02-2024 10:29-0400Body lpxror875.72 cmDO Sascha MarieEver[employer] Work Phone: [facility]04-02-2024 10:29-0400 Body mass index (BMI) [Ratio]32.6 kg/m2DO [employer] Work Phone: 1(073)[address] [place], [place] 4651004-02-2024 10:29-0400 Body zktuwh30.52 kgDO SaschaMILIng Work Phone: 1(334)[address] [place], [place] 4651003-21-2024 13:46-0400 Body .72 cmDO [employer] Work Phone: 1(239)[address] [place], [place] 9672703-21-2024 13:46-0400 Body mass index (BMI) [Ratio]32.3 kg/m2DO [employer] Work Phone: 1(771)[address] [place], [place] 9672703-21-2024 13:46-0400 Body pakybl46.61 kgDO [employer] Work Phone: 1(612)[address] [place], [place] 9672702-12-2024 23:55-0500 Body tgmdir626.72 cmDO [employer] Work Phone: 1(378)[address] [place], [place] 9672702-12-2024 23:55-0500 Body jrsmukzgqsi05.4 [degF]DO [employer] Work Phone: 1(105)[address] [place], [place] 9672702-12-2024 23:55-0500 Body emgjjn162.3 kgDO [employer] Work Phone: 1(109)[address] [place], [place] 9672702-12-2024 23:55-0500 Diastolic blood mm[Hg]DO [employer] Work Phone: 1(268)[facility] [place], [place] 6556402-12-2024 23:55-0500 Heart rate74 /minDO [employer] Work Phone: 1(410)[facility] [place], [place] 6556402-12-2024 23:55-0500 Respiratory rate20 /minDO Sascha MuciMedng Work Phone: 1(940)[facility] [place], [place] 6556402-12-2024 23:55-0500 SaO2% (BldA) [Mass fraction]96 %DO [employer] Work Phone: [facility]02-12-2024 23:55-0500 Systolic blood hzpgtxaj884 mm[Hg]DO Sascha Furlong Work Phone: [facility]02-09-2024 09:40-0500 Body .72 cmJeMET [facility] [employer] Other 02-09-2024 09:40-0500Body mass index (BMI) [Ratio] 32.99 kg/j9Rlgcvjo [employer] Other 02-09-2024 09:40-0500Body cmlopj03.43 kgJeSpace [employer] Other [employer] Other 01-24-2024 09:34-0500Body vtmdun296.7 cmDennis Furlong DO Work Phone: [employer]01-24-2024 09:34-0500Body mass index (BMI) [Ratio]33.49 kg/a0Zwaaxq Furlong DO Work Phone: [employer]01-24-2024 09:34-0500Body vmvfrfbuorx14.59 [degF]Sascha [facility]long DO [facility] 09:34-0500Body .88 kgDennis Furlong DO [facility] Phone[facility]-24-2024 09:34-0500Diastolic blood sfnicxcn12 mm[Hg]Sascha Furlong DO [facility]-2024 09:34-0500Heart rate 75 /minDennis Furlong DO Work Phone: [employer]01-24-2024 09:34-0500 Respiratory rate20 /minDennis Furlong DO Work Phone: [facility]01-24-2024 09:34-4000KtH1% (BldA) [Mass fraction]96 %Sascha Furlong DO Work Phone: [facility]01-24-2024 09:34-0500Systolic blood vivcdnkq105 mm[Hg]Sascha Marielong DO Work Phone: [facility]10-30-2023 09:39-0400Blood Pressure LocationPatrick MUNIZ [facility]10-30-2023 09:39-0400Diastolic blood afpergez02 mm[Hg]Zac MUNIZ [facility]10-30-2023 09:39-0400Heart rate64 /minPatrick MUNIZ [facility]10-30-2023 09:39-0400Respiratory rate16 /minPatrick MUNIZ [facility] [facility]10-30-2023 09:39-0400Systolic blood istmbhgc393 mm[Hg]Zac MUNIZ [facility]06-28-2023 09:00-0400Body vykyxe65 mgDO Sascha Lazcanong Work Phone: [facility]06-19-2023 10:34-0400 Body igczuj781.72 cmDenjennifer Marielong Work Phone: 1(513) [phone]-Cmqij [facility] 250 DO Work Phone: 1(164) 555-776706-19-2023 10:34-0400Body mass index (BMI) [Ratio] 32.54 kg/m9Qxfqyxjennifer Marielong Work Phone: 1(332) [phone]-Pdmjh [facility] 250 DO Work Phone: 1(863) 268-343006-19-2023 10:34-0400Body surface area Derived from formula2.1 o8Abkvov G Furlong Work Phone: mp056-4540XD-LinkmPh[facility] 250 DO Work Phone: 1(480) 804-745706-19-2023 10:34-0400Body uogkhi25.07 kgSascha Marielong Work Phone: mp856-2145KF-HifcpPhillips [facility] Institute 250 DO Work Phone: 1(178) 853-305206-19-2023 10:34-0400Diastolic blood bqpadfnv18 mm[Hg] Sascha Marielong Work Phone: mp830-7686AV-KrghlPhillips [facility] Institute 250 DO Work Phone: 1(879) 482-920906-19-2023 10:34-0400Heart rate78 /minDennrustam Candelaria Furlong Work Phone: mp186-8394ER-JylobPhillips Eye Institute 250 DO Work Phone: 1(471) 792-481206-19-2023 10:34-0400Systolic blood mm[Hg] Sascha Marielong Work Phone: mp824-1433CR-QbynbPhillips Eye Institute 250 DO Work Phone: 1(564) 315-266106-17-2023 19:59-0400Diastolic blood mm[Hg] DO Sascha Marielong Work Phone: [facility]06-17-2023 19:59-0400 Heart rate68 /minDO Sascha Furlong Work Phone: [facility]06-17-2023 19:59-0400 Respiratory rate18 /minDO Sascha Furlong Work Phone: [facility]06-17-2023 19:59-0400 SaO2% (BldA) [Mass fraction]96 %DO Sascha Furlong Work Phone: [facility]06-17-2023 19:59-0400 Systolic blood dhetuqsx969 mm[Hg]DO Sascha Furlong Work Phone: 1(721)[address] [place], [place] 4651006-17-2023 18:27-0400 Body .72 cmDO Sascha Furlong Work Phone: 1(839)[address] [place], [place] 9672706-17-2023 18:27-0400 Body ababhrbbpnz39 [degF]DO Sascha Furlong Work Phone: 1(556)[address] [place], [place] 9672706-17-2023 18:27-0400 Body lbfaic41.95 kgDO Sascha Furlong Work Phone: 1(348)[address] [place], [place] 9672706-13-2023 05:30-0400 Diastolic blood zohmhlzo42 mm[Hg]DO Sascha Furlong Work Phone: 1(299)[address] [place], [place] 9672706-13-2023 05:30-0400 Heart rate74 /minDO Sascha Furlong Work Phone: 1(628)[address] [place], [place] 9672706-13-2023 05:30-0400 Respiratory rate18 /minDO Sascha Furlong Work Phone: 1(042)[facility] [place], [place] 6556406-13-2023 05:30-0400 SaO2% (BldA) [Mass fraction]96 %DO Sascha Furlong Work Phone: 1(152)[address] [place], [place] 9672706-13-2023 05:30-0400 Systolic blood jkbvecnu185 mm[Hg]DO Sascha Furlong Work Phone: 1(461)[address] [place], [place] 9672706-13-2023 02:29-0400 Body .72 cmDO Sascha Furlong Work Phone: 1(370)[address] [place], [place] 9672706-13-2023 02:29-0400 Body aqxqzxsfnkq08.9 [degF]DO Sascha Furlong Work Phone: 1(987)[facility] [place], [place] 6556406-13-2023 02:29-0400 Body bncajk83.52 kgDO Sascha Furlong Work Phone: [phone]05-15-2023 15:54-0400 Diastolic blood zsbdskex93 mm[Hg]DO Saschajennifer Marielong Work Phone: 1(038)[address] [place], [place] 9672705-15-2023 15:54-0400 Heart rate54 /minDO Sascha [employer] Work Phone: 1(821)[address] [place], [place] 9672705-15-2023 15:54-0400 Respiratory rate16 /minDO Sascha Furlong Work Phone: 1(527)[address] [place], [place] 9672705-15-2023 15:54-0400 SaO2% (BldA) [Mass fraction]95 %DO Sascha Marielong Work Phone: 1(037)[address] [place], [place] 9672705-15-2023 15:54-0400 Systolic blood bjkvaonu17 mm[Hg]DO Sascha Marielong Work Phone: 1(972)[address] [place], [place] 9672705-15-2023 09:55-0400 Body kuafbb316.72 cmDO Sascha Marielong Work Phone: 1(247)[address] [place], [place] 9672705-15-2023 09:55-0400 Body msyaicdveyv25.5 [degF]DO Sascha Marielong Work Phone: 1(599)[address] [place], [place] 9672705-15-2023 09:55-0400 Body axzfhh91.7 kgDO Sascha Marielong Work Phone: 1(008)[facility] [place], [place] 6556405-10-2023 11:00-0400 Body cpovhh091.72 cmDennis Teagan Marielong Work Phone: 1(950) [phone]-Lwhtb [facility] 250 DO Work Phone: 1(333) 778-202005-10-2023 11:00-0400Body mass index (BMI) [Ratio] 32.99 kg/n8Fmryoh G Cynthialong Work Phone: 1(452) [phone]-Vtfzj [facility] 250 DO Work Phone: 1(267) 521-605105-10-2023 11:00-0400Body surface area Derived from formula2.12 j7Oquwmh G Furlong Work Phone: mp047-0698IY-Kftiu [place] [employer] 250 DO Work Phone: 1(176) 258-730005-10-2023 11:00-0400Body zusnmw37.43 kgSascha Marielong Work Phone: mp115-4150BR-Vusub [place] [employer] 250 DO Work Phone: 1(831) 635-436705-10-2023 11:00-0400Diastolic blood semtprmq72 mm[Hg] Sascha Candelaria Furlong Work Phone: mp730-0437SP-Ijcby [place] [employer] 250 DO Work Phone: 1(248) [phone] 11:00-0400Diastolic blood pvnxeqtd26 mm[Hg] Sascha Candelaria Furlong Work Phone: mp590-3660AV-Mbpgp [place] [employer] 250 DO Work Phone: 1(953) 575-421205-10-2023 11:00-0400Heart rate63 /minDbg Candelaria Furlong Work Phone: mp079-8391SJ-Obkps [place] [employer] 250 DO Work Phone: 1(820) 206-280405-10-2023 11:00-0400Systolic blood cecprpeb091 mm[Hg] Sascha Marielong Work Phone: mp666-4844FV-Fmbuh [place] [employer] 250 DO Work Phone: 1(105) 176-860305-10-2023 11:00-0400Systolic blood jcuhoang598 mm[Hg] Sascha Marielong Work Phone: mp765-4909ZX-Hyrvv [place] [employer] 250 DO Work Phone: 1(950) 297-210705-04-2023 11:00-229841 1Dennis G Furlong Work Phone: [phone]-Tbeln [place] [facility] 250 DO Work Phone: Comment on above:[id number] Encounters Encounter DateEncounter TypeCare ProviderFacilityStart: 37-73-2052zuytahfcdq Zac MUNIZFacility:EU BellevueStart: 35-41-2074qqnrnraofyOourhcf Alvino MUNIZ Facility:EU AdelitauskyStart: 79-36-0232aujgbwzxnoWiznnrj Alvino MUNIZ Facility:CD:[id number]: 08-21-2025 End: 97-62-3374OyyhqcOjgnbu G Furlong DO Work Phone: [facility] MedicineStart: 08-19-2025 End: 61-23-5050lyxfmjiqsrLYYCNNQ C Jonathan AvailableStart: 08-15-2025 End: 07-63-1366otzyuojiunUpoill Furlong DO Work Phone: [facility] Work Phone: Start: 08-15-2025 End: 22-07-1622Tflfkzt encounter procedureThcorrina Cottrell MDMadison [facility] Work Phone: Start: 08-13-2025 End: 54-48-2260wiqhokminjZvyjud X OrzechFacility:EU [place]uskyStart: 08-13-2025 End: 62-44-5851Tbmszgk encounter procedureAurora X Orzech [facility] Start: 08-07-2025 End: 31-69-3491Yatskvk encounter procedureChristine DAUGHERTY-Lab [address] Work Phone: Start: 08-07-2025 End: 72-79-7807wxngljqtnmFkxtvs Furlong DO Work Phone: [facility] Work Phone: Start: 07-24-2025 End: 50-66-3141Jbudedg encounter procedureMelanie Trujillo DO-Electrodiagnostics Work Phone: Start: 07-24-2025 End: 13-87-6161rnefcwugwoPwuewu Furlong DO Work Phone: [facility] Work Phone: Start: 20-34-8237egpukbeygoXdrtvna R WATERSFacility:EU [place]vueStart: 07-17-2025 End: 18-93-3574ybtmbdwrbqFawsni Furlong DO Work Phone: [facility] Work Phone: Start: 07-17-2025 End: 73-23-1940Iuofuke encounter procedureFesoren Connell PILLOW FILLER-C-Lab [facility] Work Phone: Start: 07-17-2025 End: 31-13-2806Irtjph outpatient visit 40 minutesFesoren Connell PILLOW FILLER Work Phone: noms [place] NeurologyComment on above:Syncope, unspecified syncope type (Primary Dx); Neuropathy; Hypersomnia with sleep apnea; Rheumatoid arthritis, involving unspecified site, unspecified whether rheumatoid factor present (HCC); Intention tremor; Cervicogenic headacheStart: 07-17-2025 End: 65-69-3911vwrbwehcieEGSKYCF C WINDNAGELNot AvailableStart: 07-01-2025 ambulatoryPatrick R WATERSFacility:EU [place]vueStart: 06-27-2025 End: 56-38-3564Hdzfjg flowsMiguel Conklin DPM Work Phone: NOMS CI PODIATRYStart: 06-27-2025 End: 28-74-9256Zrzdho flowsMiguel Conklin DPM Work Phone: noMS CI PODIATRYStart: 06-27-2025 End: 65-16-1387Dtplwu outpatient visit 10 minutesNicsamreen Conklin DPM Work Phone: noms CI PODIATRYComment on above:Tenosynovitis of right lower leg (Primary Dx); Pain due to onychomycosis of toenails of both feet; Xerosis cutis; Su splint, right, initial encounter; 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Start: 06-27-2025 End: 93-35-3911bennvrtpupHQHCDJKT A BROWNNot AvailableStart: 06-25-2025 End: 06-52-3845Nwrqbox encounter procedureW Prasad Callahandon DO-Ultrasound [address] Work Phone: Start: 06-25-2025 End: 08-76-6394qmujneyifaMcahhy Furlong DO Work Phone: [facility] Work Phone: Start: 06-25-2025 End: 26-71-3740rchhlbshhpUOBOAHN S [facility] AmbulatoryStart: 06-20-2025 End: 09-27-8235Shtgdq consultation new/estab patient 80 minAlfonso Trujillo DO Work Phone: [facility] on above:Preop cardiovascular exam; Syncope, unspecified syncope type; Mixed hyperlipidemia; Essential (primary) hypertension; PVC (premature ventricular contraction); Systemic lupus erythematosus, unspecified SLE type, unspecified organ involvement status (Multi); BMI 34.0-34.9,adult; Former smokerStart: 06-20-2025 End: 76-30-7479Yilejjp encounter statusAlfonso Trujillo DO Work Phone: [facility]: 06-20-2025 End: 18-67-5192ennuadysroPLIIQCGGrove Hill [facility] Hospital AmbulatoryStart: 06-20-2025 End: 10-90-4744Ebncjlgau for preprocedural cardiovascular examinationMDESAUGrove Hill Memorial Hospital AmbulatoryStart: 06-12-2025 End: 97-77-7426reygpovrdaGtaoaap R WATERSFacility:EU [place]kyStart: 06-12-2025 End: 16-64-7919Cyrrqsp encounter procedureZac MUNIZ [facility] [place] Start: 06-11-2025 End: 38-36-0295Wawfpv outpatient visit 25 minutesMyra Orlando APRN-SENIOR TEST ANALYST Work Phone: [facility] - Family MedicineComment on above:Hospital discharge follow-up (Primary Dx); Syncope, unspecified syncope typeStart: 06-11-2025 End: 32-84-4016yxbqulgxdqJNYG D [facility] Ambulatory PPGStart: 06-01-2025 End: 35-75-9019HsglgoXidzutwk A Brown DPM Work Phone: noms [place] PODComment on above:Tenosynovitis of right lower legStart: 05-28-2025 End: 48-27-1126Livylj outpatient visit 15 minutesSascha Sutton DO Work Phone: [facility] - Family MedicineComment on above:Moderate persistent asthma, unspecified whether complicated (Primary Dx); Class 2 severe obesity due to excess calories with serious comorbidity and body mass index (BMI) of35.0 to 35.9 in adult ([facility])Start: 05-28-2025 End: 74-02-4609paaxxlpoyxXUSCIBWinnebago Indian Health Services Ambulatory PPGStart: 05-27-2025 End: 14-66-3227XxaiglPiurqn G Furlong DO Work Phone: [facility] - Family MedicineStart: 05-15-2025 End: 72-56-9315Ijcuml flowsheetFelicia C Becki PILLOW FILLER Work Phone: noms BM NEUROLOGYStart: 05-15-2025 End: 61-15-0406Dklfbs flowsheetFelicia C Windnagel PILLOW FILLER Work Phone: noms BM NEUROLOGYStart: 05-15-2025 End: 19-17-6730Cwxetm outpatient visit 25 minutesFepushpaia C Becki PILLOW FILLER Work Phone: noms SWS NEURComment on above:Intention tremor (Primary Dx); PolyneuropathyStart: 05-15-2025 End: 63-43-3085enuvrljzmdUVLQXFM C BECKINot AvailableStart: 05-07-2025 End: 72-01-8395Opvhsdh encounter procedureDennis Teagan Furlong DO Work Phone: [facility] Internal Medicine - Family MedicineComment on above:Medicare annual wellness visit, subsequent (Primary Dx); Screening for depressionStart: 05-07-2025 End: 98-79-2774mruevscyfyOSKWCWSCL [facility] Ambulatory PPGStart: 95-50-8249Yfk-patient / Non-visitDennis Furlong DO Work Phone: [facility] Work Phone: Start: 05-01-2025 End: 59-47-6339Xbekvek encounter procedureDennis Furlong DO Work Phone: [facility]-Respiratory Therapy Work Phone: Start: 05-01-2025 End: 64-61-4852dxnkiiloauCgrllq Furlong DO Work Phone: [facility] Work Phone: Start: 04-29-2025 End: 08-91-2797usfnbhswazCvrazam R WATERSFacility:EU [place]vueStart: 04-29-2025 End: 17-07-2312Ycpkhgq encounter procedureZac MUNIZ [facility] start: 04-18-2025 End: 26-84-1801Epxfmha encounter procedureDennis Furlong DO Work Phone: [facility]-[address] Work Phone: Start: 04-18-2025 End: 99-01-4306xvfiypslyqAjwuzj Furlong DO Work Phone: [facility] Work Phone: Start: 29-21-3377Dhzrwozjjq RecurringDennis Furlong DO Work Phone: [facility]-Physical Therapy [place]Start: 04-16-2025 End: 56-23-7856Obzkxp outpatient visit 15 minutesDennis Teagan Furlong DO Work Phone: [facility] Physicians Internal Medicine - Family MedicineComment on above:Lumbar radiculopathy (Primary Dx); Pain of right lower legStart: 04-16-2025 End: 25-89-1543bzyfiqljjfXUSXKX G FURLONGMercy Health [facility] Hospitalca [facility] Ambulatory PPGStart: 04-10-2025 End: 50-31-1583Vlystmmyh encounterRgcheryl Neff [facility]ENTERPro[facility] - Family MedicineStart: 04-10-2025 End: 21-27-5618Flhxblx encounter procedureDennis Cynthialong DO Work Phone: [facility] Work Phone: Start: 04-10-2025 End: 77-28-9380dxtzxbhkxhCvnwar Furlong DO Work Phone: [facility] Work Phone: Start: 04-09-2025 End: 59-95-1822Fhrmrm outpatient visit 15 minutesKali Conklin DPM Work Phone: noms [place] PODComment on above:Tenosynovitis of right lower leg (Primary Dx); Su splint, right, initial encounter; 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; Contracture of right ankle; Xerosis cutis; Pain due to onychomycosis of toenails of both feetStart: 04-09-2025 End: 05-88-3680xqutnxvotcMBHFGYNL A BROWNNot AvailableStart: 04-09-2025 End: 94-77-2660Pzohnq flowsMiguel Conklin DPM Work Phone: [facility]oms [place] PODStart: 04-09-2025 End: 24-74-2515Htcmep Marielena Conklin DPM Work Phone: noms [place] PODStart: 52-50-7940Nbwdotbqca RecurringDennis Furlong DO Work Phone: [facility]-Physical Therapy [place]Start: 03-27-2025 End: 49-70-5126zpjztohbpwYgvkfg Furlong DO Work Phone: [facility] Work Phone: Start: 03-27-2025 End: 48-25-4549Pcwfnft encounter procedureDennis Furlong DO Work Phone: [facility] Work Phone: Start: 55-81-7328Oaaszxmsnr RecurringDennis Furlong DO Work Phone: [facility]-Physical Therapy [place]Start: 03-20-2025 End: 14-18-9630Frinvs flowsAlejandro Taylor MD Work Phone: noms NEUROLOGYStart: 03-20-2025 End: 85-51-5266Yzvtkd flowsAlejandro Taylor MD Work Phone: noms BM NEUROLOGYStart: 03-20-2025 End: 81-96-8021spelwduggiCBQBQJM W BAUERNot AvailableStart: 03-20-2025 End: 39-97-2485Gimgjn outpatient visit 25 minutesBrealondra Taylor MD Work Phone: noms SWS NEURComment on above:Piriformis syndrome of right side (Primary Dx); Intention tremorStart: 56-10-4696Vgd-patient / Non-visitDennis Furlong DO Work Phone: [facility] Work Phone: Start: 03-04-2025 End: 20-16-9537Twekmgdar encounterMarian Guajardo NP Work Phone: noms [facility] NEURO 210Start: 02-25-2025 End: 27-50-1726Drrmygbadplo care manage srvc 14 day dischargeDennis G Furlong DO Work Phone: [facility] - Family MedicineComment on above:Other chest pain (Primary Dx); Thoracic region somatic dysfunction; Essential hypertensionStart: 02-25-2025 End: 56-24-6059purqsjlskpREYANK G FURNGMercy Health [facility] Ambulatory PPGStart: 02-24-2025 End: 77-72-1323IldqseZidubz G Furlong DO Work Phone: [facility] MedicineStart: 02-21-2025 End: 98-44-3234Sssyqlmaki Conklin DPM Work Phone: noMS CI PODIATRYStart: 02-21-2025 End: 54-94-7614Gnkiaomaki Conklin DPM Work Phone: noMS CI PODIATRYStart: 02-21-2025 End: 31-01-6988Dpdpsk outpatient visit 15 minutesKali Conklin DPM Work Phone: noMS CI PODIATRYComment on above:Tenosynovitis of right lower leg (Primary Dx); Su splint, right, initial encounter; 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; Contracture of right ankle; Xerosis cutisStart: 02-21-2025 End: 57-48-1712nuplymfybcDLKQPXQW A BROWNNot AvailableStart: 02-21-2025 End: 12-29-3747uiokszgfayFdntju Furlong DO Work Phone: [facility] Work Phone: Start: 02-21-2025 End: 81-94-5552Msxdovr encounter procedureDennis Furlong DO Work Phone: [facility] Work Phone: Start: 02-15-2025 End: 81-88-7939zgwicizkeuKfasja IbrahimFacility:[facility] Hospitaltart: 02-15-2025 End: 89-43-3462Cnhwzstqzv and management of inpatientDennis Furlong DO Work Phone: [facility] [place] [facility] Work Phone: Start: 02-15-2025 End: 53-06-2602siaxkstoxrv encounterDennis Furlong DO Work Phone: [facility] Work Phone: Start: 02-08-2025 End: 03-65-4109qypjrydfiwNyslol Furlong DO Work Phone: [facility] Work Phone: Start: 02-08-2025 End: 28-71-8236Ilrqehf encounter procedureDennis Furlong DO Work Phone: [facility] Work Phone: Start: 02-07-2025 End: 60-70-1037Rjnzrg flowsMiguel Conklin DPM Work Phone: noms CI PODIATRYStart: 02-07-2025 End: 01-82-7100Imthfr flowsMiguel Conklin DPM Work Phone: noms CI PODIATRYStart: 02-07-2025 End: 31-48-4098Ohcmqx outpatient visit 15 minutesNicsamreen Conklin DPM Work Phone: noms CI PODIATRYComment on above:Xerosis cutis (Primary Dx); Tenosynovitis of right lower leg; Su splint, right, initial encounter; Contracture of right ankleStart: 02-07-2025 End: 71-64-4346ffxmweyhxiMUVYJWPY A BROWNNot AvailableStart: 01-30-2025 End: 95-43-1762Rfeocm outpatient visit 15 minutesKali Conklin DPM Work Phone: noms [place] PODComment on above:Tenosynovitis of right lower leg (Primary Dx); 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; Xerosis cutis; Su splint, right, initial encounter; Contracture of right ankleStart: 01-30-2025 End: 34-15-4498yxhdswnwapUIXMFHYP A BROWNNot AvailableStart: 01-30-2025 End: 32-31-4170Ymjuxc Marielena Conklin DPM Work Phone: [place] [place] PODStart: 01-30-2025 End: 02-83-3647Vthegtmaki Conklin DPM Work Phone: [place] PODStart: 01-29-2025 End: 03-71-0691Ghsflo outpatient visit 25 minutesDennis G Furlong DO Work Phone: [facility] - Family MedicineComment on above:Right leg weakness (Primary Dx); Fall, initial encounter; Lumbosacral stenosis with neurogenic claudication; Perforation of right tympanic membraneStart: 01-29-2025 End: 97-23-3947zdxatwkielOXVPLQWinnebago Indian Health Services Ambulatory PPGStart: 01-25-2025 End: 05-10-1320zhsujvotfsLldglv Furlong DO Work Phone: [facility] Work Phone: Start: 01-25-2025 End: 69-99-7498Nwpdryq encounter procedureDennis Furlong DO Work Phone: [facility] Work Phone: Start: 01-25-2025 End: 45-43-2220Ehyuic outpatient visit 15 minutesDennis G Furlong DO Work Phone: [facility] Internal Medicine - Family MedicineComment on above:Abrasion of anterior right lower leg, subsequent encounter (Primary Dx); Cellulitis of right lower extremity; Contusion of right lower leg, subsequent encounterStart: 01-25-2025 End: 94-37-8417ocyspubhjgNENHXCWinnebago Indian Health Services Ambulatory PPGStart: 01-24-2025 End: 47-30-9708Yluhnnmaki Conklin DPM Work Phone: noms CI PODIATRYStart: 01-24-2025 End: 57-74-5786Sxajxi flowsheetKranthidamianameya Conklin DPM Work Phone: noms CI PODIATRYStart: 01-24-2025 End: 00-97-9222Htmuqv outpatient visit 15 minutesKali Grimaldo Mk DPM Work Phone: noms CI PODIATRYComment on above: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); Pronation deformity of both feet; Skin fissureStart: 01-24-2025 End: 77-99-1846fiegjwdxpnHJEVPBVR A BROWNNot AvailableStart: 01-24-2025 End: 68-04-5766rljkmkwxvjRpdkau Furlong DO Work Phone: [facility] Work Phone: Start: 01-24-2025 End: 76-91-5831Gmzkxlbnjz RecurringDennis Furlong DO Work Phone: [facility]-Physical Therapy [place]Start: 80-94-0124Yfkxwgbbvb RecurringDennis Furlong DO Work Phone: [facility]-Physical Therapy [place]Start: 01-14-2025 End: 84-57-9299Nirtjnr encounter procedureDennis Furlong DO Work Phone: [facility]-[address] Work Phone: Start: 01-14-2025 End: 69-62-6834tmgkbfthvvNrckep Furlong DO Work Phone: [facility] Work Phone: Start: 01-12-2025 End: 76-04-7181Yujqcosmt department patient visitDennis Furlong DO Work Phone: [facility]-Emergency Room Work Phone: Start: 01-12-2025 End: 03-75-2225fnmonwdiihVlfdau Furlong DO Work Phone: [facility] [place] Work Phone: Start: 01-12-2025 End: 16-94-2755Lfsuadh encounter procedureDennis Cynthialong DO Work Phone: [facility] [place] Work Phone: Start: 24-23-1374Obwjatofon RecurringDennis Furlong DO Work Phone: [facility]-Physical Therapy [place]Start: 01-10-2025 End: 78-93-0713Vdpzru Marielena Cnoklin DPM Work Phone: noms CI PODIATRYStart: 01-10-2025 End: 20-91-4271Vugokimaki Conklin DPM Work Phone: n[facility] CI PODIATRYStart: 01-10-2025 End: 41-37-2807qdgxpgkmgpIBCJEKFM A BROWNNot AvailableStart: 01-10-2025 End: 34-13-3670Zyuqrd outpatient visit 15 minutesKali Conklin DPM Work Phone: noms CI PODIATRYComment on above:Skin fissure (Primary Dx); Pain due to onychomycosis of toenails of both feet; 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; Exostosis of both feetStart: 01-03-2025 End: 58-74-2090Uphcmkwkb encounterRenée Graff Other Phone: noms SWS NEURStart: 12-19-2024 End: 07-99-5473Ncjxlk Jennifer Taylor MD Work Phone: noms BM NEUROLOGYStart: 12-19-2024 End: 82-46-0686Rcwbey Jennifer Taylor MD Work Phone: noms BM NEUROLOGYStart: 12-19-2024 End: 03-15-1964Vprlox outpatient visit 25 minutesWhit Taylor MD Work Phone: noms SWS NEURComment on above:Intention tremor (Primary Dx); Piriformis syndrome of right sideStart: 12-19-2024 End: 91-39-0858kffzbwygqsKUXZLSA W BAUERNot AvailableStart: 12-17-2024 End: 52-99-1035hpeecckdwaLCEKNYNA W MURCEKNot AvailableStart: 12-17-2024 End: 56-12-3977Qswfbk flowsheetBenjamin W Murcek DO Work Phone: noms ENT [place]KYStart: 12-17-2024 End: 05-37-1651Rzrsfd flowsheetBenjamin W Murcek DO Work Phone: noms ENT SANDUSKYStart: 12-17-2024 End: 53-90-3283Nqdgrg outpatient visit 25 minutesBenjamin W Murcek DO Work Phone: noms ENT SANDUSKYComment on above:Thyroid nodule (CMS/HCC) (Primary Dx)Essential hypertension (Primary Dx); Hyperlipidemia, unspecified hyperlipidemia type; Intention tremor; 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CMS-HCC); Antiphospholipid syndrome (CMS-HCC); Class 1 obesity due to excess calories with serious comorbidity and body mass index (BMI) of 33.0 to 33.9 in adultStart: 12-17-2024 End: 64-62-4073tcflnbqmcpEOXJJQSCL [facility] Ambulatory PPGStart: 61-02-7149Wkbgsfeuox RecurringEdenilson Mcleod MD Work Phone: [facility] [place]: 12-07-2024 End: [id number] encounter procedureEdenilson Mcleod MD Work Phone: [facility] [place] Work Phone: Start: 12-07-2024 End: [id number] Felter MD Work Phone: [facility] Work Phone: Start: 12-06-2024 End: [id number] flowslauraKali Dillan Conklin DPM Work Phone: [facility] PODIATRYStart: 12-06-2024 End: 92-43-6679Fmbwfs flowsMiguel Conklin DPM Work Phone: n[facility] CI PODIATRYStart: 12-06-2024 End: 27-49-0591Stzuvh outpatient visit 15 minutesNicsamreen Conklin DPM Work Phone: noms CI PODIATRYComment on above: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); Exostosis of both feet; Pain due to onychomycosis of toenails of both feetStart: 12-06-2024 End: 35-42-9379ciavsrsxwjPVEMFRDZ A BROWNNot AvailableStart: 11-26-2024 Registered RecurringEdenilson Mcleod MD Work Phone: [facility]-Physical Therapy [place] CreekStart: 11-26-2024 End: 57-94-1514Nkwhem Eduard Sutton DO Work Phone: [facility] - Family MedicineComment on above:Essential hypertension (Primary Dx); Hyperlipidemia, unspecified hyperlipidemia type; Encounter for screening for malignant neoplasm of prostateStart: 11-26-2024 End: 55-82-8277Otkhkxz encounter procedureEdenilson Mcleod MD Work Phone: [facility] Pain Mgmt [facility] Work Phone: Start: 11-09-2024 End: 72-24-3556Rcxyoas encounter procedureEdenilson Mcleod MD Work Phone: [facility] Orthopedics Work Phone: Start: 11-05-2024 End: 51-08-2776Ifojexh encounter procedureEdenilsno Mcleod MD Work Phone: [facility] [address] Closed Work Phone: Start: 11-05-2024 End: 77-74-1080ftuopbbexeSjlvyg [facility]longNor[facility]tart: 11-01-2024 End: 02-11-9268Wbjjcv flowsCarmelaameya Grimaldo Mk DPM Work Phone: [facility] CI PODIATRYStart: 11-01-2024 End: 72-33-0914Ducckj flowsMiguel Conklin DPM Work Phone: [facility] CI PODIATRYStart: 11-01-2024 End: 97-09-1147Ctxytoc encounter procedureNicsamreen Dillan Mk DPM Work Phone: n[facility] CI PODIATRYComment on above:Pain due to onychomycosis of toenails of both feet (Primary Dx); Exostosis of both feetStart: 11-01-2024 End: 57-64-6947uqroqnavpmNETLKAFR A BROWNNot AvailableStart: 10-25-2024 End: 63-22-6054ridexvbzozAmdrsks R WATERSFacility:CD:[id number]: 10-17-2024 End: 70-68-3539Tzffofy encounter procedureEdenilson Mcleod MD Work Phone: [facility] Orthopedics Work Phone: Start: 10-15-2024 End: 00-24-5839Cdhnrr Jennifer Taylor MD Work Phone: [facility] BM NEUROLOGYStart: 10-15-2024 End: 78-58-4475Rbhifm Jennifer Taylor MD Work Phone: [facility] BM NEUROLOGYStart: 10-15-2024 End: 56-65-2877Qjrjri outpatient visit 25 minutesWhit Taylor MD Work Phone: noms SWS NEURComment on above:Intention tremor (Primary Dx)Start: 10-15-2024 End: 13-11-6472ztkaxnclkbRXLPLRC W BAUERNot AvailableStart: 10-10-2024 End: 81-03-1611Irpzcqq encounter procedureEdenilson Mcleod MD Work Phone: [facility] [address] Work Phone: Start: 10-10-2024 End: 38-15-3364fwdhvzwqafPujxyr Felter MD Work Phone: [facility] Work Phone: Start: 10-09-2024 End: 35-93-8843Rohfac outpatient visit 15 minutesSascha Sutton DO Work Phone: [facility] - Family MedicineComment on above:Subacute frontal sinusitis (Primary Dx); HoarsenessStart: 10-09-2024 End: 01-64-3730hshyciganwXVCDRHWinnebago Indian Health Services Ambulatory PPGStart: 10-02-2024 End: 53-96-6922Ydjehu OnlyDenjennifer Sutton DO Work Phone: [facility] - Family MedicineStart: 09-24-2024 End: 16-10-6907Bqitva outpatient visit 15 minutesSascha Sutton DO Work Phone: [facility] Medicine - Family MedicineComment on above:Upper respiratory tract infection, unspecified type (Primary Dx)Start: 09-24-2024 End: 39-06-7956lovltvbokqWPPLKEWinnebago Indian Health Services Ambulatory PPGStart: 09-19-2024 End: 34-49-8916ymkxwopluwZV Edenilson Mcleod Work Phone: [facility] Work Phone: Start: 09-19-2024 End: 28-84-6150Sfrmxsz encounter procedureMD Edenilson cMleod Work Phone: [facility] [place] Work Phone: Start: 36-97-7689Bln-patient / Non-visitMD Edenilson Mcleod Work Phone: [facility] OutPt Work Phone: Start: 43-86-0204Dpk-patient / Non-visitMD Edenilson Mcleod Work Phone: [facility] Work Phone: Start: 09-05-2024 End: 93-16-9792gecuoptmzlRR Edenilson Mcleod Work Phone: [facility] Work Phone: Start: 09-05-2024 End: 06-18-9734Soqozlt encounter procedureMD Edenilson Mcleod Work Phone: [facility] Work Phone: Start: 09-03-2024 End: 47-63-6845gtzqaidlimPmjglfd R WATERSFacility:[facility] Medical CenterueStart: 09-03-2024 End: 42-45-8605Mgnpsgc encounter procedurePadhiraj MUNIZ [facility] start: 08-29-2024 End: 82-29-6514ZzztvwJkjory G Furveterans memorial [facility] DO Work Phone: [facility] - Family MedicineStart: 08-29-2024 End: 15-63-0857vlwxkdpzupPA Edenilson Mcleod Work Phone: [facility] Work Phone: Start: 08-29-2024 End: 26-60-1571Pmqsfzi encounter procedureMD Edenilson Mcleod Work Phone: [facility] Orthopedics Work Phone: Start: 08-20-2024 End: 54-06-8322osbyeuoetuCU Edenilson Mcleod Work Phone: [facility] Work Phone: Start: 08-20-2024 End: 94-82-6618Fwwigjf encounter procedureMD Edenilson Mcleod Work Phone: [facility] BC Work Phone: Start: 08-17-2024 End: 67-36-4376Ppocvr outpatient visit 15 minutesNicsamreen Conklin DPM Work Phone: [facility] [place] PODComment on above:Exostosis of both feet (Primary Dx); Onychomycosis; Toe pain, bilateralStart: 08-17-2024 End: 71-15-4905Qlulhz flowsheetNicholas A Brown DPM Work Phone: [facility] [place] PODStart: 08-17-2024 End: 48-79-4462Fypdmm flowsheetNicholas A Brown DPM Work Phone: [facility] [place] PODStart: 08-13-2024 End: 11-75-8209urzliyjlriOU Edenilson Mcleod Work Phone: [facility] Work Phone: Start: 08-13-2024 End: 01-89-1962Bzzcgsh encounter procedureMD Edenilson Mcleod Work Phone: [facility] Work Phone: Start: 84-23-2006Fqn-patient / Non-visitMD Edenilson Mcleod Work Phone: [facility] Work Phone: Start: 07-25-2024 End: 92-23-3636ipwaebzlydIF Edenilson Mcleod Work Phone: [facility] Work Phone: Start: 07-25-2024 End: 56-51-6303Evgybqr encounter procedureMD Edenilson Mcleod Work Phone: [facility] Work Phone: Start: 61-82-8565Hyx-patient / Non-visitMD Edenilson Mcleod Work Phone: [facility] Work Phone: Start: 07-18-2024 End: 76-04-9530Gxshtob encounter procedureMD Edenilson Mcleod Work Phone: [facility] Work Phone: Start: 07-12-2024 End: 02-78-7680gzuouiizgnCP Edenilson Mcleod Work Phone: [facility] Work Phone: Start: 07-12-2024 End: 00-70-5117Qrkwneq encounter procedureMD Edenilson Mcleod Work Phone: [facility] Pain Management BC Work Phone: Start: 00-79-0196Hhy-patient / Non-visitMD Edenilson Mcleod Work Phone: [facility] Work Phone: Start: 07-04-2024 End: 55-22-9431ccirzfxbdhDG Sascha Furlong Work Phone: [facility] Work Phone: Start: 07-04-2024 End: 76-85-6407Ixchvju encounter procedureDO Sascha Furlong Work Phone: [facility] Work Phone: Start: 07-03-2024 End: 72-10-1142swrtslkforCQ Sascha Furlong Work Phone: [facility] Work Phone: Start: 07-03-2024 End: 33-99-8356Xqfgiqa encounter procedureDO Sascha Furlong Work Phone: [facility] [address] Work Phone: Start: 06-26-2024 End: 85-68-1829yhefzkzlyrSW Sascha Furlong Work Phone: [facility] Work Phone: Start: 06-26-2024 End: 02-02-3583Opjqnqn encounter procedureDO Sascha Marielong Work Phone: [facility] Pain Management Work Phone: Start: 06-15-2024 End: 45-86-8015Vbksisukq encounterDenjennifer Sutton DO Work Phone: [facility] - Family MedicineStart: 06-14-2024 End: 41-29-5198Doldav outpatient visit 15 minutesSascha Sutton DO Work Phone: [facility] - Family MedicineComment on above:Essential hypertension (Primary Dx); Class 1 obesity due to excess calories with serious comorbidity and body mass index (BMI) of 33.0 to 33.9 in adultStart: 06-14-2024 End: 31-06-3686ihdygoadcaSHORWM [facility] Ambulatory PPGStart: 06-06-2024 End: 84-62-9879uvojmgbnxhZE Sascha Marielong Work Phone: [facility] Work Phone: Start: 06-06-2024 End: 37-29-4272Qmqwwjb encounter procedureDO Sascha Marielong Work Phone: [facility] Work Phone: Start: 35-49-1267Arm-patient / Non-visitDO Sascha Marielong Work Phone: [facility] Work Phone: Start: 06-02-2024 End: 48-59-7434KylupoVqpjyp G Furlong DO Work Phone: [facility] - Family MedicineStart: 05-30-2024 End: 93-92-5336zhprymnysvVU Sascha Furlong Work Phone: [facility] Work Phone: Start: 05-30-2024 End: 01-49-6123Wypquktd ReferredDO Sascha Furlong Work Phone: [facility] [address] Work Phone: Start: 05-28-2024 End: 32-71-3354xpnzwqovxeTR Sascha Furlong Work Phone: [facility] Work Phone: Start: 05-28-2024 End: 26-16-9206Xemahdo encounter procedureDO Saschajennifer Marielong Work Phone: [facility] Pain Management Work Phone: Start: 05-16-2024 End: 21-82-1052izqqdizfcmJY Sascha Furlong Work Phone: [facility] Work Phone: Start: 05-16-2024 End: 86-63-0415Rmizddq encounter procedureDO Saschajennifer Marielong Work Phone: [facility] Work Phone: Start: 13-87-9782Yvw-patient / Non-visitDO Sascha Furlong Work Phone: [facility] Work Phone: Start: 05-15-2024 End: 40-13-1938Gfexefk encounter procedureJENNFAUSTINO KHAN [facility] start: 05-02-2024 End: 95-81-7230yyxtktnovoSC Sascha Furlong Work Phone: [facility] Work Phone: Start: 05-02-2024 End: 03-92-8782Eqvcocd encounter procedureDO Sascha Sutton Work Phone: [facility] Pain Management BC Work Phone: Start: 05-01-2024 End: 90-98-8948Fbnlczf encounter procedureDenjennifer Sutton DO Work Phone: [facility] - Family MedicineComment on above:Medicare annual wellness visit, subsequent (Primary Dx); Screening for depressionStart: 04-24-2024 End: 63-21-0269afljgwmoeuNA Sascha Sutton Work Phone: [facility] Work Phone: Start: 04-24-2024 End: 04-10-0676Nkwlytb encounter procedureDO Sascha Sutton Work Phone: [facility] Neurosurgery Work Phone: start: 28-19-0093Kuw-patient / Non-visitDO Sascha Sutton Work Phone: [facility] Work Phone: Start: 04-18-2024 End: 74-68-2730wfmneputjxLN Sascha Marielong Work Phone: [facility] Work Phone: Start: 04-18-2024 End: 63-83-1516Dmvhkwx encounter procedureDO Sascha Sutton Work Phone: [facility] Work Phone: Start: 04-11-2024 End: 79-74-0292rpnfogpycoUG Sascha Marielong Work Phone: [facility] Work Phone: Start: 04-11-2024 End: 41-16-2415Bontkxj encounter procedureDO Sascha Cynthialong Work Phone: [facility] Work Phone: Start: 36-25-8604Rke-patient / Non-visitDO Sascha Cynthiageneng Work Phone: [facility] Neuro[facility] Work Phone: start: 04-09-2024 End: 54-60-7319Cjuwgkjar to same day surgery centerDO Sascha Cynthiageneng Work Phone: [facility]Start: 04-09-2024 End: 59-68-3402ftcmoxywtcQL Sascha Furlong Work Phone: [facility] Work Phone: Start: 04-02-2024 End: 05-81-7903ajcomkgpmpIP Sascha Furlong Work Phone: [facility] Work Phone: Start: 04-02-2024 End: 04-73-8530Fbohfhjp ReferredDO Sascha Marielong Work Phone: [facility] Chj-Vtx-Kndjqlqt Testing Work Phone: Start: 04-02-2024 End: 28-67-1069Ryaktbp encounter procedureDO Sascha Marielong Work Phone: [facility] Rae-Poc-Mgrteuml Testing Work Phone: Start: 03-29-2024 End: 93-63-7515xkxofpbvbsYG Sascha Furlong Work Phone: [facility] Work Phone: Start: 03-29-2024 End: 59-48-4615Lokjygi encounter procedureDO Sascha Cynthialong Work Phone: [facility] Work Phone: start: 03-20-2024 End: 78-40-6825Qlhvptw encounter procedureAurora X Baldevch [facility] start: 03-13-2024 End: 28-74-1099agzifpstpaMO Sascha Furlong Work Phone: [facility] Work Phone: Start: 03-13-2024 End: 98-00-0663Gmxglez encounter procedureDO Sascha Furlong Work Phone: [facility] [address] Work Phone: Start: 03-08-2024 End: 87-96-6440lbktcszghwSH Sascha Furlong Work Phone: [facility] Work Phone: Start: 03-08-2024 End: 86-28-9434Udsoiue encounter procedureDO Sascha Furlong Work Phone: [facility] [address] Work Phone: Start: 03-03-2024 End: 82-04-3938CmimdjWwtvic G Furcierra DO Work Phone: [facility] - Family MedicineStart: 02-21-2024 End: 92-37-1837wsiliegmtqWW Sascha Furlong Work Phone: [facility] Work Phone: Start: 02-21-2024 End: 54-78-8180Hxccbwx encounter procedureDO Sascha Furlong Work Phone: [facility] Work Phone: start: 02-09-2024 End: 94-54-3263axrgtutgcwVE Sascha Furlong Work Phone: [facility] Work Phone: Start: 02-09-2024 End: 57-80-2075Kakwqwr encounter procedureDO Sascha Furlong Work Phone: [facility] Neurosurgery Work Phone: start: 01-23-2024 End: 95-70-6767pqnuvuofykPGEPSI G FURLONGProMedica Placentia-Linda Hospitaltart: 01-18-2024 End: 04-15-3325Qjo Drop offPadhiraj Alvino MUNIZ [facility] Start: 01-18-2024 End: 78-47-3901Ommxdfg encounter procedurePadhiraj De Oliveira MUNIZ [facility] Start: 01-11-2024 End: 88-21-7324fdtrjozidhMZ Sascha Marielong Work Phone: [facility] Work Phone: Start: 01-11-2024 End: 86-85-5896Ipzocsk encounter procedureDO Sascha Cynthialong Work Phone: [facility]-XRay [address] Work Phone: Start: 01-10-2024 End: 36-70-5139imefyymrmyUQ Sascha Cynthialong Work Phone: [facility] Work Phone: Start: 01-10-2024 End: 34-69-8726Qqzbjve encounter procedureDO Sascha Furlong Work Phone: [facility] [address] Work Phone: Start: 01-02-2024 End: 40-37-0121Yhmczjbsu department patient visitDO Sascha Furlong Work Phone: [facility]-Emergency Room Work Phone: Start: 40-23-7287Hdilxu outpatient new 45 minutes [facility] NeurosurgeryStart: 12-30-2023 End: 49-94-2474nraeyseysdPD Sascha Furlong Work Phone: [facility] Work Phone: Start: 12-30-2023 End: 64-25-3246Yrvkmyd encounter procedureDO Sascha Marielong Work Phone: [facility] [address] Work Phone: Start: 29-40-7855Fpovg abstractingBharath Cain DPM Work Phone: [facility] SWS PODIATRYStart: 12-28-2023 End: 61-18-0124Bcsovp outpatient visit 15 minutesBharath Cain DPM Work Phone: n[facility] SWS PODIATRYComment on above:Pronation deformity of both feet (Primary Dx); Chronic pain of both kneesStart: 12-22-2023 End: 04-14-7747fjaszlxwfgQMIWLE G FURLONGProMedica Fenwick HospitalStart: 12-19-2023 End: 25-61-5734cpbpgwcksyBTDEBZ G FURLONGProMedica Fenwick HospitalStart: 12-15-2023 End: 31-88-9373rvqqsfdimkFJ Sascha Furlong Work Phone: [facility] Work Phone: Start: 12-15-2023 End: 92-96-1830Rugjfkz encounter procedureDO Saschajennifer Marielong Work Phone: [facility]-X[facility] [address] Work Phone: Start: 12-14-2023 End: 11-55-8664ihhhofzdkjCUPCYQ G FURLONGProMedica Blackwell HospitalStart: 12-14-2023 End: 28-27-1321Wfvfep outpatient visit 25 minutesDenjennifer Sutton DO Work Phone: [facility] - Family MedicineComment on above:Essential hypertension (Primary Dx); Hyperlipidemia, unspecified hyperlipidemia type; Midline low back pain without sciatica, unspecified chronicity; Class 1 obesity due to excess calories with serious comorbidity and body mass index (BMI) of 33.0 to 33.9 in adult; 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CMS-HCC); Antiphospholipid syndrome ([facility]); Cubital tunnel syndrome on right; ParesthesiasStart: 12-08-2023 End: 70-79-0613ayjcxibwppJH Sascha Sutton Work Phone: [facility] Work Phone: Start: 12-08-2023 End: 09-58-3197Tereufv encounter procedureDO Sascha Cynthiageneosmani Work Phone: [facility] [address] Work Phone: Start: 10-20-2023 End: 24-32-2952fswvnrrxgqXS Sascha Sutton Work Phone: [facility] Work Phone: Start: 10-20-2023 End: 03-78-3526Xrjeamd encounter procedureDO Sascha Sutton Work Phone: [facility] [address] Work Phone: Start: 09-19-2023 End: 37-82-4572Ndxgofw encounter procedurePatrick Alvino MUNIZ [facility] start: 09-12-2023 End: 03-13-3765idwxdynrpaRZ Sascha Marieloosmani Work Phone: [facility] Work Phone: Start: 09-12-2023 End: 73-82-5613Gmvfepa encounter procedureDO Sascha Furlong Work Phone: [facility] [address] Work Phone: Start: 09-05-2023 End: 06-51-2768cqcvhapoxwWH Sascha Furlong Work Phone: [facility] Work Phone: Start: 09-05-2023 End: 48-12-1251Zthsjae encounter procedureDO Sascha Furlong Work Phone: [facility] [address] Work Phone: Start: 08-16-2023 End: 23-21-8347yigetquevbSZ Sascha Furlong Work Phone: [facility] Work Phone: Start: 08-16-2023 End: 07-98-1653Rntzwuj encounter procedureDO Sascha Furlong Work Phone: [facility] [address] Work Phone: Start: 08-08-2023 End: 87-38-2895Aekxzdd encounter procedurePadhiraj MUNIZ [facility] start: 08-04-2023 End: 10-93-8136rdexnadsedYK Sascha Furlong Work Phone: [facility] Work Phone: Start: 08-04-2023 End: 96-74-7735Ifjztud encounter procedureDO Sascha Furlong Work Phone: [facility] [address] Work Phone: Start: 06-03-2023 End: 90-02-0777Lxxhbmp encounter procedurePatrichima MUNIZ [facility] Dennise start: 05-31-2023 End: 30-76-0963pznpetzqniQS Sascha Furlong Work Phone: [facility] Work Phone: Start: 05-31-2023 End: 01-20-1562Lhpoxkl encounter procedureDO Sascha Furlong Work Phone: [facility] [address] Work Phone: Start: 05-18-2023 End: 17-47-9221cborvqkrtrFW Sascha Furlong Work Phone: [facility] Work Phone: Start: 05-18-2023 End: 34-26-2089Bwvccec encounter procedureDO Sascha Furlong Work Phone: [facility] [address] Work Phone: Start: 76-53-2243Njycat outpatient visit 15 minutes Sascha Teagan Marielong Work Phone: [phone]-Ojxkm [facility] DO Work Phone: Start: 05-09-2023 End: 65-99-4373ikawmlxylqFZ Sascha Furlong Work Phone: [facility] Work Phone: Start: 05-09-2023 End: 35-66-8281Nkrajsn encounter procedureDO Sascha Furlong Work Phone: [facility] [address] Work Phone: Start: 05-07-2023 End: 02-22-5439Ghjxdfypa department patient visitDO Sascha Cynthialong Work Phone: [facility]-Emergency Room Work Phone: Start: 05-03-2023 End: 18-07-6261Iworvyunb department patient visitDO Sascha Marielong Work Phone: [facility]-Emergency Room Work Phone: Start: 04-13-2023 End: 32-73-9671Pvlkbmw encounter procedureDO Sascha Furlong Work Phone: [facility]-Respiratory Therapy Work Phone: Start: 04-08-2023 End: 14-48-9098Bvxkubd encounter procedureDO Sascha Furlong Work Phone: [facility] [address] Work Phone: Start: 11-56-6806rbxqnkkuzmRcDr. Alfonso Trujillo Facility:[id number]: 04-04-2023 End: 98-92-7196Skekqdfqq to same day surgery centerDO Sascha Marielong Work Phone: [facility]-Consumer Advocate Work Phone: Start: 04-04-2023 End: 21-48-4798cusohhxsghIN Sascha Marielong Work Phone: [facility] Work Phone: Start: 03-31-2023 End: 08-90-6814xfwwkillnwML Sascha Marielong Work Phone: [facility] Work Phone: Start: 03-31-2023 End: 32-55-9206Amvlbdv encounter procedureDO Sascha Marielong Work Phone: [facility] Mdb-Axr-Nzvcrvup Testing Work Phone: Start: 03-26-9059Fuzuju consultation new/estab patient [address] Marielong Work Phone: [phone]-Qarkp [facility] DO Work Phone: Start: 26-16-2095umhvsklmrbFmRigo Trujillo Facility:[id number]: 63-58-4983prxpmtqmtqCxRigo TrujilloFacility:UHCStart: 03-20-2023 End: 08-34-6681pcpldgpkywQIFUHX Claritza ZELAYAWWADFacility:M2Jlnby: 01-31-2023 End: 83-26-2534fgotoehbquHS Sascha Furlong Work Phone: [facility] Work Phone: Start: 01-31-2023 End: 77-03-0939Tfcahcb encounter procedureDO Sascha Furlong Work Phone: [facility] Work Phone: Start: 10-26-2022 End: 86-99-8351uqkfttfvcbJZ Sascha Furlong Work Phone: [facility] Work Phone: Start: 10-26-2022 End: 86-70-2090Fewtpwa encounter procedureDO Sascha Furlong Work Phone: [facility]-Lab [address]Start: 09-29-2022 End: 65-22-5163zouqkylqhrUM Sascha Furlong Work Phone: [facility] Work Phone: Start: 09-29-2022 End: 77-33-8478Pwykpew encounter procedureDO Sascha Furlong Work Phone: [facility]: 07-21-2022 End: 13-29-9319Bkjgtyg encounter procedureDO Sascha Furlong Work Phone: [facility] [address]Start: 04-14-2022 End: 22-02-7506Pdsaoqk encounter procedureDO Sascha Furlong Work Phone: [facility]-Lab [address]Start: 04-09-2022 End: 30-49-8041vanmvvzermMU AUDIE GONZALES .Facility:G0Dfffr: 04-25-2018 End: 09-28-5096Tajrpebhe department patient visitREBEKAH REEDSt. Joseph HospitalImaging result normalDenjennifer Sutton Work Phone: [phone]-Nsidd [facility] DO Work Phone: Procedures DateProcedureProcedure DetailPerforming ClinicianStart: 93-05-7246Xxxdfydtr complement CH50 levelDenjennifer Lazcanong DO Work Phone: Comment on above:Age Male Female 1 - 30 days Not Estab. Not Estab. 31 days - 6 months >32 >20 7 months - 17 years >39 >39 >17 years >41 >41 NOTE: The adult ( >17 years ) reference intervalrange is used to flag abnormals on this report. If the patient is 17 years old or younger, use the table above to determine out of range values.Performed at: [address] Director: Richy Ardon PhD, Phone: [phone]: 09-25-1233Bvziywn ultrasonography of bilateral carotid arteriesDenjennifer Lazcanong DO Work Phone: Start: 87-63-4534Lii routine ecg w/least 12 lds w/i&r Alfonso Trujillo DO Work Phone: Start: 07-32-5943ZtoqcyifyvDaddnny MUNIZ Start: 16-31-8892Psfns depression screening assessment Myra Orlando SUPERVISOR COMPOSING ROOM-SENIOR TEST ANALYST Work Phone: Start: 12-86-8973Lmnob depression screening assessment Sascha Marielong DO Work Phone: Start: 41-48-0237Rfoef depression screening assessment Sascha Marielong DO Work Phone: Start: 62-35-9086Kqads depression screening assessment Sascha Marielong DO Work Phone: Start: 06-11-9332E-ray of right knee, four viewsDennis Furlong DO Work Phone: Start: 49-72-4592Vnxb structure, excluding neck (body structure)Zac MUNIZ Comment on above:left lumbar and right lumbar radio frequency L3, A8Fgusq: 70-09-6135Wunwd depression screening assessmentDennis Furlong DO Work Phone: Start: 17-12-2116Oxqkk chest X-rayDennis Furlong DO Work Phone: start: 87-99-5253F-ray of right ankleDennis Furlong DO Work Phone: Start: 54-11-6836Ytornj-up visitFollow-upDENNIS G FURLONGStart: 94-35-1866Epwxp depression screening assessmentDennis Furlong DO Work Phone: Start: 72-92-5795EH of head without contrastDennis Furlong DO Work Phone: start: 96-08-0295HX of lumbar spine without contrast Sascha Furlong DO Work Phone: start: 99-10-5179N-ray of right knee, two viewsDennis Furlong DO Work Phone: Start: 93-27-6300Uszhk depression screening assessment Sascha Furlong DO Work Phone: Start: 78-90-5709CKE of right hipThomas Harsha ONEAL Work Phone: Start: 63-66-0208Jldae depression screening assessment Sascha Furlong DO Work Phone: Start: 13-67-3927Pqydy chest X-rayMD Edenilson Mcleod Work Phone: Start: 52-33-0279Xldwu X-ray of right hipMD Edenilson Mcleod Work Phone: Start: 76-31-6490Khwdl depression screening assessment Sascha Furlong DO Work Phone: Start: 87-40-7302Pibxo depression screening assessment Sascha Furlong DO Work Phone: Start: 71-18-5680Hgpimjevyrvwn of ulnar nerveDO SaschaVANCLlong Work Phone: start: 93-75-1271LTW of cervical spine without contrastDO Sascha Furlong Work Phone: Start: 33-93-1612Fbzqktrvsi radiography of abdomenDO SaschaVANCLlong Work Phone: start: 69-97-9964MUS of lumbar spine with contrastDO Sascha NerVve Technologieslong Work Phone: start: 15-74-0089NQ of abdomen and pelvis without contrastDO Sascha Furlong Work Phone: start: 73-00-1955T-ray of cervical spineDO Ingen Technologieslong Work Phone: Start: 05-11-4098V-ray of lumbar spine, six views including bending viewsDO Consign[employer]ng Work Phone: Start: 20-77-3099X-ray of lumbar spine, two or three viewsDO Consigndng Work Phone: start: 18-96-6499Szpvd depression screening assessment Sascha Furlong DO Work Phone: Start: 14-25-0091Jxtej X-ray of right hipDO SaschaVANCLlong Work Phone: start: 51-82-8333Ewfdrmfzts radiography of abdomenDO [employer] Work Phone: start: 57-02-6172Cboagpsatd radiography of abdomenDO [employer] Work Phone: start: 65-37-8815NC of abdomen and pelvis without contrastDO [employer]gen Technologieslong Work Phone: start: 04-67-3351UJ LHC & COR AngioDO Sascha Furlong Work Phone: Start: 96-16-9358C-ray of left footDO Sascha Furlong Work Phone: Start: 76-52-1060AsminrerxgjKmcprh Furlong DO Work Phone: Start: 23-57-0632Kbhmz colonoscopyDennis G Furlong Work Phone: Arthroplasty of kneeDennis G Furlong Work Phone: Arthroplasty of kneePatrick MUNIZ arthroscopy of kneePatrick MUNIZ Cleft palate (disorder)Zac MUNIZ ColonoscopyPahighlands arh regional medical centerk MUNIZ Decompression of median nerveDennis G Furlong Work Phone: Decompression of median nervePatrick MUNIZ Dilation of esophagusDennis G Furlong Work Phone: EsophagogastroduodenoscopyPatrick MUNIZ Hernia repairDennis G Furlong Work Phone: Malignant neoplasm of skin (disorder)Zac MUNIZ Operation on the earDennis G Furlong Work Phone: Operative procedure on kneeDennis G Furlong Work Phone: Operative procedure on spinal structureDennis G Furlong Work Phone: Procedure on shoulderPatrick MUNIZ Procedure on spinePatrick MUNIZ [phone]-lndydhxek ablation system (physical object) Zac MUNIZ Repair of cleft palateDennis G Furlong Work Phone: Repair of middle earDennis G Furlong Work Phone: Repair of middle earPatrick MUNIZ Repair of shoulderDennis G Furlong Work Phone: Surgical procedure on eye properDennis G Furlong Work Phone: Upper limb structure (body structure)LEAH KHAN Plan of Treatment DateCare ActivityDetailAuthorStart: 79-75-7387KCmV,Tdap and Td Vaccines (3 - Td or Tdap)DTaP,Tdap and Td Vaccines (3 - Td or Tdap)[facility] SystemStart: 68-80-0209TVkC/Tdap/Td Vaccines (3 - Td or Tdap)DTaP/Tdap/Td Vaccines (3 - Td or Tdap)[facility] HospitalStart: 61-40-1510Rtmjqkvei for malignant neoplasm of colonProUab Medical West Health SystemStart: 74-24-2625Hnesm BMI Screening Adult BMI ScreeningSouthwest General Health Center SystemStart: 10-92-4139Ykkcpijnos Screening Depression ScreeningSouthwest General Health Center SystemStart: 96-30-9305Eltt Risk Screening Fall Risk ScreeningSouthwest General Health Center SystemStart: 89-01-3424Txhzbzs Screening Tobacco ScreeningSouthwest General Health Center SystemStart: 01-21-1681Arjkb BMI Follow Up PlanAdult BMI Follow Up PlanSouthwest General Health Center SystemStart: 84-53-1755Pxcad BMI ScreeningAdult BMI ScreeningSouthwest General Health Center SystemStart: 28-40-8850Cdqsnoxhtc ScreeningDepression ScreeningSouthwest General Health Center SystemStart: 47-56-2765Gnpe Risk ScreeningFall Risk ScreeningSouthwest General Health Center SystemStart: 20-04-3550Kayjoor ScreeningTobacco ScreeningProUniversity [facility]als [facility] SystemStart: 05-13-2026 End: 72-57-4508Rhiihsh encounter gixrzpfuz67/23/2026 10:20 AM EDT [facility] [address] [place] [address] LkoCvljxf [facility]icians [facility] Medicine - Family MedicineStart: 02-52-7880Hfmjy BMI ScreeningAdult BMI ScreeningProPremier Health Atrium Medical Centerca [facility] SystemStart: 32-87-2114Plhbgoohpu ScreeningDepression ScreeningProPremier Health Atrium Medical Centerca Health SystemStart: 32-69-5507Uxuo Risk ScreeningFall Risk ScreeningProPremier Health Atrium Medical Centerca Health SystemStart: 06-17-2026Medicare Annual Wellness VisitMedicare Annual Wellness VisitProPremier Health Atrium Medical Centerca [facility] SystemStart: 54-62-1614Upcnw BMI ScreeningAdult BMI ScreeningProPremier Health Atrium Medical Centerca [facility] SystemStart: 52-56-7610Tyhzsrwecp ScreeningDepression ScreeningProPremier Health Atrium Medical Centerca [facility] SystemStart: 56-04-3722Bimo Risk ScreeningFall Risk ScreeningMercy Health Urbana Hospitalca [facility] SystemStart: 27-01-3495Slfhcpq ScreeningTobacco ScreeningMercy Health Urbana Hospitalca [facility] SystemStart: 43-10-3838Ehdjp BMI ScreeningAdult BMI ScreeningMercy Health Urbana Hospitalca [facility] SystemStart: 29-99-5942Ywjwlkdqkz ScreeningDepression ScreeningProPremier Health Atrium Medical Centerca [facility] SystemStart: 63-86-2950Cetf Risk ScreeningFall Risk ScreeningMercy Health Urbana Hospitalca [facility] SystemStart: 18-09-9766Xxbpf BMI ScreeningAdult BMI ScreeningMercy Health Urbana Hospitalca [facility] SystemStart: 85-98-9093Ovmprxg ScreeningTobacco ScreeningMercy Health Urbana Hospitalca [facility] SystemStart: 88-49-8246Aprll BMI ScreeningAdult BMI ScreeningMercy Health Urbana Hospitalca [facility] SystemStart: 88-51-5006Amikjitlzk ScreeningDepression ScreeningMercy Health Urbana Hospitalca [facility] SystemStart: 74-63-9554Cgrl Risk ScreeningFall Risk ScreeningMercy Health Urbana Hospitalca [facility] SystemStart: 28-18-6336Gquukss ScreeningTobacco ScreeningMercy Health Urbana Hospitalca [facility] SystemStart: 12-18-2025 End: 85-89-4436Mjxykav encounter procedureNOMS ENT CRISELDAYStart: 10-09-2025 Adult BMI ScreeningAdult BMI ScreeningMercy Health Urbana Hospitalca [facility] SystemStart: 10-09-2025 Tobacco ScreeningTobacco ScreeningMercy Health Urbana Hospitalca [facility] SystemStart: 92-81-0430Yojuc BMI ScreeningAdult BMI ScreeningMercy Health Urbana Hospitalca [facility] SystemStart: 09-24-2025 Depression ScreeningDepression ScreeningSouthwest General Health Center SystemStart: 09-24-2025 Tobacco ScreeningTobacco ScreeningSouthwest General Health Center SystemStart: 09-19-2025 End: 69-66-2362Iwsftwb encounter yvuzsuesm20/30/2025 11:50 AM EDT Procedure Visit [facility] [address] [facility] [address] [place] [address] Kali Conklin, JODI [address] [facility] 5 [place] [address] [facility] CI PODIATRYStart: 09-16-2025 End: 40-81-0579Dwyqzed encounter procedureNOMS SWS NEURStart: 08-07-2025 Hemolytic complement CH50 levelOhioHealth Grady Memorial Hospitaltart: 47-35-6359Cjjebbnam vaccinationSouthwest General Health Center SystemStart: 65-68-4970TqobnmewvOhioHealth Grady Memorial Hospitaltart: 07-17-2025 End: 07-17-2026 reactive protein [Mass/volume] in Serum or PlasmaC-reactive protein Lab Routine Neuropathy Rheumatoid arthritis, involving unspecified site, unspecified whether rheumatoid factor present (HCC) Expected: 07/17/2025 (Approximate), Expires: 07/17/2026NOMS HealthcareComment on above:Expected: 07/17/2025 (Approximate), Expires: 07/17/2026Start: 07-17-2025 End: 98-41-6305AVE 2-12HRS,CONTEEG 2-12HRS,CONT Neurology Routine Syncope, unspecified syncope type Expected: 07/17/2025 (Approximate), Expires: 07/17/2026 [facility] HealthcareComment on above:Expected: 07/17/2025 (Approximate), Expires: 07/17/2026Start: 07-17-2025 End: 55-05-4039JUD 2 ExtremitiesEMG 2 Extremities Neurology Routine Neuropathy Expected: 07/17/2025 (Approximate), Expires: 07/17/2026NOMS HealthcareComment on above:Expected: 07/17/2025 (Approximate), Expires: 07/17/2026Start: 07-17-2025 End: 83-24-5143Qazsftvpfkd sedimentation rateSedimentation rate, automated Lab Routine Rheumatoid arthritis, involving unspecified site, unspecified whether rheumatoid factor present (HCC) Expected: 07/17/2025 (Approximate), Expires: 07/17/2026NOMS HealthcareComment on above:Expected: 07/17/2025 (Approximate), Expires: 07/17/2026Start: 07-17-2025 End: 14-14-3268Hheq sleep testHome sleep test Sleep Center Routine Hypersomnia with sleep apnea Expected: 07/17/2025 (Approximate), Expires: 07/17/2026NOMS HealthcareComment on above:Expected: 07/17/2025 (Approximate), Expires: 07/17/2026Start: 07-17-2025 End: 34-13-4209Ufxuyru encounter unvxpbggl39/27/2025 2:00 PM EDT Office Visit [facility] [address] [facility] [address] [place] [address] Shabnam Connell, PILLOW FILLER [address], [facility] [address] [place] [address] NOMElliott [facility] Start: 07-17-2025 End: 18-64-5278Ehwlqlppbz factor [Units/volume] in Serum or PlasmaNOMS HealthcareComment on above:Expected: 07/17/2025 (Approximate), Expires: 07/17/2026Start: 07-17-2025 End: 48-17-7900HEJ ANTIBODY ([facility])SSA ANTIBODY ([facility]) Lab Routine Syncope, unspecified syncope type Neuropathy Expected: 07/17/2025 (Approximate), Expires: 07/17/2026[facility] Work Phone: comment on above:Expected: 07/17/2025 (Approximate), Expires: 07/17/2026Start: 07-17-2025 End: 00-07-4756ELM ANTIBODY ([facility])SSB ANTIBODY ([facility]) Lab Routine Syncope, unspecified syncope type Neuropathy Expected: 07/17/2025 (Approximate), Expires: 07/17/2026NOMS HealthcareComment on above:Expected: 07/17/2025 (Approximate), Expires: 07/17/2026Start: 06-27-2025 End: 22-83-1137Yhocyle encounter rgqygnnox35/07/2025 11:50 AM EDT Procedure Visit [facility] [address] [facility] [address] [place] [address] Kali Conklin, JODI 300 [facility] [address] [place] [address] Pain due to onychomycosis of toenails of both feet (Primary Dx); Xerosis cutis; Su splint, right, initial encounter; Tenosynovitis of right lower leg; Acquired inequality oflength of right lower extremityNOMS CI PODIATRYComment on above:Pain due to onychomycosis of toenails of both feet (Primary Dx); Xerosis cutis; Su splint, right, initial encounter; Tenosynovitis of right lower leg; 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Start: 13-73-7487Dbswbmb ultrasonography of bilateral carotid arteriesUS carotid doppler [facility] Medical Centertart: 01-24-2290PK.doppler Carotid arteries - bilateral [facility] Hospitaltart: 06-20-2025 End: 75-76-9504Gzldaf monitor studyHolter Or Event Measurement Specialist Cardiac Services Routine Syncope, unspecified syncope type PVC (premature ventricular contraction) Expected: 06/20/2025 (Approximate), Expires: 06/20/2027[facility] Service Area Work Phone: Comment on above:Expected: 06/20/2025 (Approximate), Expires: 06/20/2027Start: 06-20-2025 End: 24-04-4515Xdon table studyTilt Table Cardiac Services Routine Syncope, unspecified syncope type PVC (premature ventricular contraction) Expected: 06/20/2025 (Approximate), Expires: 06/20/2027[facility] Work Phone: Comment on above:Expected: 06/20/2025 (Approximate), Expires: 06/20/2027Start: 06-20-2025 End: 93-67-8662YH.doppler Carotid arteries - bilateralVascular US Carotid Artery Duplex Bilateral Vascular Ultrasound Routine Syncope, unspecified syncope type Expected: 06/20/2025 (Approximate), Expires: 06/20/2027[facility] Work Phone: Comment on above:Expected: 06/20/2025 (Approximate), Expires: 06/20/2027Start: 06-20-2025 End: 25-93-1794Tlmsmly encounter cgoyjewvz67/31/2025 10:00 AM EDT Procedure Visit [facility] 112 [facility] [address] [place] [address] Kali Conklin, DPEduard [address] [facility] 5 [place] [address] [facility] CI PODIATRYStart: 16-10-7157Tcssp BMI ScreeningAdult BMI ScreeningProPremier Health Atrium Medical Centerca Health SystemStart: 31-96-8080Davvxuumna ScreeningDepression ScreeningProPremier Health Atrium Medical Centerca Health SystemStart: 67-13-6502Jibtlyf ScreeningTobacco ScreeningProPremier Health Atrium Medical Centerca Health SystemStart: 05-28-2025 End: 84-17-4675Acrmokk encounter xgsmhtlhy93/08/2025 2:45 PM EDT Office Visit [facility] [address] [place] [address] Sascha Sutton, [address] [facility] [place] [address] [facility] Family MedicineStart: 05-15-2025 End: 97-06-2239Xkfrsms encounter procedureNOMS SWS NEURComment on above:Arrived Start: 05-07-2025 End: 69-17-0975Gnwnpsb encounter baguyoivn93/17/2025 9:40 AM EDT Office Visit [facility] [address] [place] [address] UwnXaedvw [facility] - Family MedicineStart: 90-82-1150Ybtfg BMI ScreeningAdult BMI ScreeningProUniversity Hospitals [facility] Center SystemStart: 10-44-8499Zyyqvmncqb ScreeningDepression ScreeningProUniversity Hospitals [facility] SystemStart: 87-39-4783Fffn Risk ScreeningFall Risk ScreeningProUniversity Hospitals [facility] SystemStart: 06-11-2025Medicare Annual Wellness VisitMedicare Annual Wellness VisitProUniversity Hospitals Tripoint Medical Center SystemStart: 14-28-7132Vkxcawzna complement CH50 [facility] Hospitaltart: 04-09-2025 End: 40-61-8763Ssnddda encounter procedureNOMS SC PODComment on above: Tenosynovitis of right lower leg (Primary Dx); Su splint, right, initial encounter; 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; Contracture of right ankle; Xerosis cutis; Pain due to onychomycosis of toenails of both feetStart: 03-21-2025 End: 44-62-5930Eybfcyl encounter eozdcdged13/01/2025 1:30 PM EDT Procedure Visit [facility] [address] [facility] [address] [place] [address] Kali Conklin DPM 3[address] [facility] [address] [place] [address] [facility] CI PODIATRYStart: 03-20-2025 End: 46-29-2557Owfobqs encounter cddgnrsoi26/30/2025 10:20 AM EDT Office Visit [facility] [address] [facility] [address] [place] [address] Whit Taylor MD 6[address] [facility] [address] [address] [facility] SWS NEURStart: 02-25-2025 End: 82-03-9204Zbxqwfk encounter kemjkoldm15/07/2025 1:30 PM EDT Office Visit [facility] [address] [place] [address] Sascha Sutton DO [address] [facility], [place] [address] [facility] Family MedicineStart: 02-21-2025 End: 07-72-8465Pgvbnzi encounter ttwkjefsk68/03/2025 9:30 AM EDT Office Visit [facility] [address] [place] [address] [place] [address] Kali Conklin DPM [address] [address] Tenosynovitis of right lower leg (Primary Dx); Su splint, right, initial encounter; 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; Contracture of right ankle; Xerosis cutisNOMS CI PODIATRYComment on above:Tenosynovitis of right lower leg (Primary Dx); Su splint, right, initial encounter; 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; Contracture of right ankle; Xerosis cutisStart: 00-49-7955CmexhprvmOhioHealth Grady Memorial Hospitaltart: 02-16-2025 Referral to cardiologistOhioHealth Grady Memorial Hospitaltart: 02-15-2025 Hospital admissionOhioHealth Grady Memorial Hospitaltart: 02-07-2025 End: 87-07-8185Lkdtxly encounter nzuitkptg71/20/2025 10:00 AM EDT Office Visit [facility] [address] [place] [address] [place] [address] Kali Conklin DPM [address] [address] Xerosis cutis (Primary Dx); Tenosynovitis of right lower leg; Su splint, right, initial encounter; Contracture of right ankleNOMS CI PODIATRYComment on above:Xerosis cutis (Primary Dx); Tenosynovitis of right lower leg; Su splint, right, initial encounter; Contracture of right ankleStart: 01-30-2025 End: 54-50-6454Zftxxki encounter bmellduzo70/12/2025 4:40 PM EDT Office Visit [facility] [address] [place] [address] Kali Conklin DPM 3006 [facility] [address] [place] [address] 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); Xerosis cutisNOMS SC PODComment on above: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); Xerosis cutisStart: 01-25-2025 End: 62-74-7424LV Ankle - right 3 ViewsX-ray ankle right minimum 3 views Imaging Routine Abrasion of anterior right lower leg, subsequent encounter Expected: 01/25/2025, Expires: 01/25/2026[facility] Work Phone: Comment on above:Expected: 01/25/2025, Expires: 01/25/2026Start: 01-24-2025 End: 04-24-6675Frpgbaw encounter hiwwmszaz00/06/2025 11:20 AM EST Office Visit [facility] [address] [facility] [address] [place] [address] Kali Conklin DPM [address] [facility] [address] [place] [address] ArrivedNOMS CI PODIATRYComment on above:ArrivedStart: 40-53-3397Zcmmnwwnj complement CH50 [facility] Hospitaltart: 01-10-2025 End: 74-18-6864Ktwhfuu encounter zjabjleal38/20/2025 1:10 PM EST Procedure Visit [facility] [address] [facility] [address] [place] [address] Kali Conklin DPM [address] [facility] [address] [place] [address] [facility] CI PODIATRYStart: 12-19-2024 End: 86-21-5652Msvssno encounter procedureNOMS SWS NEURComment on above:Arrived Start: 12-17-2024 End: 91-50-9713Ldigdhe encounter procedureProMedica Physicians Internal Medicine - Family MedicineComment on above:ArrivedStart: 70-46-4052Jvpli BMI Screening Adult BMI ScreeningNovant Health Mint Hill Medical Centertart: 59-92-8036Hwoikoxvic Screening Depression ScreeningProAdena Health Systemtart: 34-30-4838Mbzf Risk Screening Fall Risk ScreeningProAdena Health Systemtart: 12-14-2024 End: 77-13-8971Jwzeh panelLipid panel Lab Routine Hyperlipidemia, unspecified hyperlipidemia type Expected: 12/14/2024, Expires: 11/26/2025[facility] HospitalComment on above:Expected: 12/14/2024, Expires: 11/26/2025Start: 10-38-5054Hxxnrrv ScreeningTobacco ScreeningProAdena Health Systemtart: 12-12-2024 End: 48-61-0195Nwsmleo encounter fkzyklwlv12/22/2025 2:15 PM EST Office Visit [facility] [address] [place] [address] Carlos Eden, DO [address] [place] [address] NOMElliott ABURTOYStart: 12-06-2024 End: 24-34-0659Owizfip encounter beumfybjm85/16/2025 10:20 AM EST Office Visit [facility] 112 [facility] [address] [place] [address] Kali Conklin DPM [address] [facility] [address] [place] [address] Exostosis of both feet (Primary Dx)[facility] Comment on above:Exostosis of both feet (Primary Dx)Start: 11-01-2024 End: 07-40-9805Qyzjhxm encounter procedureNOMS CI PODIATRYComment on above:Pain due to onychomycosis of toenails of both feet (Primary Dx); Exostosis of both feetStart: 10-15-2024 End: 31-58-2160Eoktvhc encounter procedureNOMS SWS NEURComment on above:Arrived Start: 96-96-1180Kcidbvmbc complement CH50 [facility] Hospitaltart: 48-61-1090Gzzpxopmn vaccinationInfluenza VaccineProUniversity Hospitals Tripoint Medical Center SystemComment on above:Postponed from 07/22/2024 (Patient Ill Today)Start: 61-54-4792Ixbqw X-ray of right hipXR hip RT min 2V(w/wo pelvis)*[facility] Hospitaltart: 45-94-9146SI Hip - right 2 ViewsOhioHealth Grady Memorial Hospitaltart: 42-26-9542Kyxvcud referralOhiohealth Pickerington [facility] Work Phone: Start: 08-17-2024 End: 97-04-3173Appnnmj encounter kriziudht70/27/2024 2:40 PM EDT Office Visit [facility] [address] [place] [address] Kali Conklin DPM [address] [address] ArrivedNOMS SC PODComment on above:ArrivedStart: 07-22-2024 COVID-19 Vaccine ( season)COVID-19 Vaccine ( season) [facility]Start: 13-97-0128Jjiidvvod vaccinationNODE HealthcareStart: 79-73-3567Fcdrxpjpm complement CH50 [facility] Hospitaltart: 06-14-2024 End: 04-11-8314Lnqvdty encounter wxznbazaj56/25/2024 1:30 PM EDT Office Visit [facility] [address] [place] [address] Sascha Sutton DO [address] [place] [address] [facility] Family MedicineStart: 05-01-2024 End: 57-96-3382Sayyzwe encounter ecefsemeo07/11/2024 10:20 AM EDT Office Visit [facility] [address] [facility] [place] [address] DdtPmstlu Physicians Internal Medicine - Family MedicineStart: 05-25-2024Medicare Annual Wellness VisitMedicare Annual Wellness VisitSouthwest General Health Center SystemStart: 05-66-9323Dkocphxh [facility] Hospitaltart: 04-09-2024 End: 36-85-6377EgbdjxudhOhioHealth Grady Memorial Hospitaltart: 59-30-5889Sdhuuwrym complement CH50 [facility] Hospitaltart: 01-25-2024 End: 91-06-1448Jjeyajh encounter bebypqzgn68/06/2024 11:15 AM EST Office Visit [facility] [address] [place] [address] [place] [address] Bharath Cain DPM [address] [place] [address] [place] [address] [facility]S [facility] PODIATRYStart: 75-01-1159DJT of lumbar spine with contrastMR lumbar spine wo/w [facility] Daytontart: 84-91-9554MA Abdomen and Pelvis WO [facility] Start: 13-18-9206OJ of abdomen and pelvis without contrastCT abdomen pelvis wo [facility] Daytontart: 12-28-2023 End: 70-65-1534Hvdypzx encounter mgfxwhsvy80/07/2024 2:00 PM EST Office Visit [facility] [address] [place] [address] [place] [address] Bharath Cain DPM [address] [place] [address] [place] [address] N[facility] SWS PODIATRYStart: 12-14-2023 End: 28-26-9379HQ Lumbar spine 2 or 3 ViewsX-ray spine lumbar 2 or 3 views Imaging Routine Midline low back pain without sciatica, unspecifiedchronicity Expected: 12/14/2023, Expires: 12/14/2024[facility] Work Phone: Comment on above:Expected: 12/14/2023, Expires: 12/14/2024Start: 83-98-3057Jggfrfeyr complement CH50 [facility] Hospitaltart: 79-91-6817SYFCX-19 Vaccine ()COVID-19 Vaccine ()[facility] Medical Centertart: 58-90-1637ZGFHI-19 Vaccine (3 - Pfizer risk series)COVID-19 Vaccine (3 - Pfizer risk series) [facility]: 84-21-2163Earhtfhnb complement [facility]tart: 66-84-1941ChyieqqiiOhioHealth Grady Memorial Hospitaltart: 06-60-3352Airejqjwz complement [facility]50 [facility] Start: 64-46-6378GqiaecgumOhioHealth Grady Memorial Hospitaltart: 92-57-0709ZQQ, Provider: Alfonso Trujillo, Status: Pen, Time: 10:00 AMFUV, Provider: Alfonso Trujillo, Status: Pen, Time: 10:00 [facility] Work Phone: Start: 22-93-7494RUX, Provider: Germaine Brown, Status: Pen, Time: 10:30 AMFUV, Provider: Germaine Brown, Status: Pen, Time: 10:30 [facility] Work Phone: Start: 75-83-0131RhzuwxrjdOhio State East Hospital Start: 96-65-3681RCQHRGOLV, Provider: Alfonso Trujillo, Status: Pen, Time: 11:00 AMSURGBANNER GATEWAY MED[facility] CENTERUH, Provider: Alfonso Trujillo, Status: Pen, Time: 11:00 [facility] DO Work Phone: Start: 94-49-7545Qnteyxslh complement [facility]50 [facility]: 13-93-3272Qhfzwiejs complement [facility]50 [facility] Hospitaltart: 35-84-5363Agqvbksjs aortic aneurysm screeningProAdena Health Systemtart: 45-72-2607Bnvkbmqc specific antigen measurementPSA Prostate Cancer ScreeningUnFlower Hospital: 41-46-7673Podckvayn for malignant neoplasm of colonColonoscopyProAdena Health Systemtart: 47-71-8991Pcnfm BMI Follow Up PlanAdult BMI Follow Up PlanNovant Health Mint Hill Medical Centertart: 97-68-4062Tstruckk mellitus screeningDiabetes Screening [facility]: 68-88-8065Ssqedzoqr C screeningHepatitis C ScreeningUnFlower Hospital: 15-05-3852RZS Vaccines (1 of 1 - Standard series)MMR Vaccines (1 of 1 - Standard series)[facility]: 58-09-7327Dnjne panelLipid PanelUnFlower Hospital: 1957Medicare Annual Wellness VisitMedicare Annual Wellness Visit (AWV)[facility]: 16-50-9801Eobnxohuu for malignant neoplasm of colonNOMS HealthcareBilirubin measurementOhio State East HospitalBody weightOhio State East HospitalCalcium [Mass/time] in 24 hour UrineOhio State East HospitalCalcium [Mass/volume] in 24 hour UrineOhio State East HospitalCalcium carbonate/Total in [facility] HospitalCalcium hydrogen phosphate dihydrate/Total in [facility] HospitalCalcium oxalate monohydrate/Total in [facility] HospitalCalcium phosphate levelOhio State East HospitalCalculus analysis with calculus photography [Interpretation] in [facility] HospitalCalculus analysis, qualitativeOhio State East HospitalCalculus analysis, quantitativeOhio State East HospitalCalculus analysis, quantitative, infrared spectroscopyOhio State East HospitalCellular material [Mass/mass] of Stone by [facility] PrebleCholesterol [Mass/volume] in Serum or PlasmaOhio State East HospitalComplement C3 [Mass/volume] in Serum or PlasmaOhiohealth Pickerington [facility] Work Phone: Complement C3 [Mass/volume] in Serum or Plasma [facility] HospitalComplement C3 [Mass/volume] in Serum or Plasma [facility] HospitalComplement C3 [Mass/volume] in Serum or Plasma [facility] HospitalComplement C3 [Mass/volume] in Serum or Plasma [facility] HospitalComplement C3 [Mass/volume] in Serum or Plasma [facility] HospitalComplement C3 [Mass/volume] in Serum or Plasma [facility] HospitalComplement C3 [Mass/volume] in Serum or Plasma [facility] HospitalComplement C3 [Mass/volume] in Serum or Plasma [facility] HospitalComplement C4 [Mass/volume] in Serum or Plasma [facility] Work Phone: Complement C4 [Mass/volume] in Serum or Plasma [facility] HospitalComplement C4 [Mass/volume] in Serum or Plasma [facility] HospitalComplement C4 [Mass/volume] in Serum or Plasma [facility] HospitalComplement C4 [Mass/volume] in Serum or Plasma [facility] HospitalComplement C4 [Mass/volume] in Serum or Plasma [facility] HospitalComplement C4 [Mass/volume] in Serum or Plasma [facility] HospitalComplement C4 [Mass/volume] in Serum or Plasma [facility] HospitalComplement C4 [Mass/volume] in Serum or Plasma [facility] End: 29-58-7276Spympovjdldlo metabolic 2000 panel - Serum or PlasmaComprehensive metabolic panel Lab Routine Essential hypertension 1 Occurrences starting 11/26/2024 until 11/26/2025[facility] Work Phone: Comment on above:1 Occurrences starting 11/26/2024 until 11/26/2025ystine measurementOhio State East Hospital Determination of calculus chemical compositionOhio State East Hospital Evaluation procedureOhio State East HospitalHemolytic complement [facility]50 [facility] Work Phone: Hydroxyapatite [Energy Difference] in 24 hour Urine [facility] HospitalLaboratory data interpretationOhio State East HospitalMagnesium [Mass/time] in 24 hour UrineOhio State East HospitalMagnesium [Mass/volume] in UrineOhio State East Hospital MR Cervical spine WO contrastOhio State East HospitalNewberyite/Total in [facility] HospitalOxalate [Mass/time] in 24 hour Urine [facility] HospitalPatient EducationMedina Hospital Ctr Work Phone: Patient referralMedina Hospital Ctr Work Phone: Phosphate [Mass/time] in 24 hour UrineOhio State East HospitalPhosphate [Mass/volume] in UrineOhio State East Hospital End: 40-17-1371Pdqvnotue specific antigen screenProstatic specific antigen screen Lab Routine Encounter for screening for malignant neoplasm of prostate 1 Occurrences starting 11/26/2024 until 11/26/2025ProUniversity [facility]als [facility] SystemComment on above:1 Occurrences starting 11/26/2024 until 11/26/2025Sjogrens syndrome-A extractable nuclear Ab [Units/volume] in [facility] Sjogrens syndrome-B extractable nuclear Ab [Units/volume] in [facility] Hospitalpecimen source subject [Type][facility] HospitalTriamterene measurementOhio State East HospitalTriple phosphate/Total in [facility] HospitalUrate [Mass/time] in 24 hour UrineOhio State East HospitalUrate [Mass/volume] in Urine [facility] Immunizations Immunization DateImmunizationNotesCare EdnfqjtmRojucugx35-50-6680qobjaudru, high dose seasonal, preservative-freeBenjamin Murcek DO Work Phone: [facility] SpringfieldRtckcazjzq65-05-5276elxjrbsfj virus vaccine, unspecified formulationKali Conklin DPM Work Phone: [facility]10-17-2024pneumococcal polysaccharide vaccine, 23 valentDennis Furlong DO Work Phone: [facility] HospitalImpactGames Qqgesx14-25-4634UMEOK-57 (MODERNA) 12Y and olderDO Sascha Furlong Work Phone: [facility]10-03-2023Covid-19, Mrna, Lnp-s, Pf,erasmo-sucrose,30 Mcg/0.3ml Avsc80DM Sascha Furlong Work Phone: [facility]10-03-2023influenza virus vaccine, unspecified formulationScOpenCounter [facility]10-03-2023Influenza, High-dose, QuadrivalentDennis Furlong DO Work Phone: [facility] [employer] Jcgphu21-77-2659ULJ vaccine, preF A- preF B, recombinantPaG10 [employer] [facility] [place] 120990-03-2023RSV, bivalent, protein subunit RSVpreF, diluent reconstituted, 0.5 mL, PFDenjennifer Furlong DO Work Phone: [facility]06-30-2023tetanus toxoid, reduced diphtheria toxoid, and acellular pertussis vaccine, adsorbedScOpenCounter [facility]01-15-2023influenza virus vaccine, unspecified formulationScOpenCounter [facility]01-15-2023influenza, seasonal, injectableDennis Teagan long Work Phone: [phone]-RjlqyM Health [facility] 250 DO Work Phone: [phone] COVID-19 Vac Bivalent 30 MCG/0.3ML Intramuscular SuspensionDennis G long Work Phone: [facility]11-18-2022SARS-COV-2 (COVID-19) Vaccine, UnspecifiedDennis Furlong DO Work Phone: [facility]10-18-2022Fluzone High-Dose Quadrivalent 0.7 ML Intramuscular Suspension Prefilled SyringeDennis G Furlong Work Phone: [facility] [employer] Gvfskj51-24-3744rpqkwcdvh virus vaccine, unspecified formulationPatrick [employer] [facility]05-27-2022Prevnar 20 0.5 ML Intramuscular Suspension Prefilled Syringe Sascha G Furlong Work Phone: [facility]11-03-2021Janssen COVID-19 Vaccine 0.5 ML Intramuscular SuspensionDennis G Furlong Work Phone: [facility]09-07-2021influenza virus vaccine, unspecified formulationPaOpenCounter [facility]09-07-2021influenza, injectable, quadrivalent, preservative freeDennis G Furlong Work Phone: [phone]-FgbxdChristopher Ville [address] DO Work Phone: [phone] COVID-19 Vaccine 0.5 ML Intramuscular SuspensionDennis G Furlong Work Phone: [facility]10-02-2020influenza virus vaccine, unspecified formulationPaOpenCounter [facility]10-02-2020Influenza, injectable, Madin Hilda Canine Kidney, preservative free, quadrivalentDennis G Furlong Work Phone: [phone]-LjrorAppleton Municipal Hospital 250 DO Work Phone: [phone] vaccine recombinantDennis G Furlong Work Phone: [facility]09-30-2019influenza virus vaccine, unspecified formulationPatrick [employer] [facility]09-30-2019Influenza, injectable, Madin [place] Canine Kidney, quadrivalent with preservativeDennis G Furlong Work Phone: [facility] [employer] Vyhucs47-45-3421mifksx vaccine recombinantDennis G Furlong Work Phone: [facility]10-16-2018influenza virus vaccine, unspecified formulationPatrick [employer] [facility]10-16-2018Influenza, injectable, Madin [place] Canine Kidney, preservative free, quadrivalentDennis G Furlong Work Phone: [facility] [employer] Zhxqes81-76-6672Lxhqzgxuk, injectable, Madin [place] Canine Kidney, preservative free, quadrivalentDennis Furlong DO Work Phone: [facility] HospitalZmowhf30-40-3172mipmtdspwnjo conjugate vaccine, 13 valentDennis G Furlong Work Phone: [facility]10-20-2016influenza virus vaccine, unspecified formulationPatrick [employer] [facility]10-20-2016influenza, injectable, quadrivalent, contains preservative Sascha G Furlong Work Phone: [phone]-ImzegM [facility] 250 DO Work Phone: [phone]jupwvugll polysaccharide vaccine, 23 valentDennis G Furlong Work Phone: [facility]01-15-2013tetanus toxoid, reduced diphtheria toxoid, and acellular pertussis vaccine, adsorbedDennis G Furlong Work Phone: [facility]12-31-1990hepatitis B vaccine, pediatric or pediatric/adolescent dosage Sascha G Furlong Work Phone: [facility]11-14-1990hepatitis B vaccine, pediatric or pediatric/adolescent dosage Sascha Sutton Work Phone: [facility] Payers DatePayer CategoryPayerPolicy [id number] supplemental policy (as second payer)AARP [id number]-uyf [id number] Care Other (unspecified)[facility] Member Subscriber Plan / Payer (Effective 2022-Present) Name: Matias Torre Relation to Subscriber: Self Name: Mavrin Valentin De Oliveira Payer ID: [id number] (NAIC) Group ID: Not on file Type: Not on file Address: [facility] [place] [id number] [id number] Health Insurance1.2.840.256317.1.13.693.2.7.9.888973.129703. [id number] [id number] 2.16.840.1.324676.3.579.2.42145-89-3725Ffdktoq1291887 2.16840.1.244571.3.579.2.76048-73-1557Slqjyrh581638410 2.16840.1.126163.3.579.2.79126-62-4506Tlmjpcm347862639 2.840.1.789105.3.579.2.88073-25-3801Zwudouy534340134 2.840.1.732237.3.579.2.21297-06-9451Yvqccgh99848661 2.16840.1.426826.3.579.2.053141-51-7337Mcitzka52061403 2.16.840.1.672684.3.579.2.990385-43-3728Kzhfkrc29664990 2.840.1.647840.3.579.2.960614-92-2467Xpcpynr40284447 2.16840.1.401254.3.579.2.452778-02-8459Jjvlqpb827337492 2.16840.1.658757.3.579.2.718013-55-8300Qmowsog709378241 2.16840.1.592712.3.579.2.794367-14-5490Vnttywb594627076 2.16840.1.662887.3.579.2.537144-57-3861Oilkpfk252246070 2.16840.1.690604.3.579.2.490901-85-6819Maumjfr066784483 2.16840.1.829916.3.579.2.168666-29-9253Cmmabpv232970908 2.16840.1.096984.3.579.2.027431-86-6589Jqccszd794254656 2.16840.1.508850.3.579.2.275037-87-4044Qmoryqk738583238 2.840.1.043583.3.579.2.342551-99-0748Zkfwedj29069712 2.0.1.718621.3.579.2.940599-43-1759Ptovyiq32612893 2.0.1.866471.3.579.2.354006-99-6693Rhcquml18936522 2.840.1.214351.3.579.2.173204-58-0303Qnycjdh89183756 2.840.1.734891.3.579.2.448175-76-1236Opuunhp95899441 2.0.1.148416.3.579.2.903031-46-0803Lbnrnef19852546 2.840.1.679615.3.579.2.122111-38-3647Exdkcrn77784970 2.840.1.462986.3.579.2.410025-71-8520Unxxbbo78871183 2.840.1.276936.3.579.2.595453-93-2118Suyqngv3399214 2.16840.1.879424.3.579.2.006735-69-0160Vtdqszg5209493 2.16.840.1.978265.3.579.2.705201-25-3047Uobbgfj7069623 2.16.840.1.907317.3.579.2.011324-29-3339Cwmxsbh4580085 2.16.840.1.627095.3.579.2.097571-55-1549Hqyhpvu1021584 2.16840.1.503743.3.579.2.688091-44-3467Jcsmaom0779944 2.16840.1.743170.3.579.2.720561-47-9413Rorjeaq6581511 2.16840.1.288921.3.579.2.564663-27-1593Ptbqxwj9283808 2.840.1.369377.3.579.2.680361-30-6144Xqdjrih2874792 2.16840.1.435598.3.579.2.455798-37-5893Bxqnfet3701666 2.840.1.192823.3.579.2.638023-10-4082Tpkkrph4104932 2.840.1.323071.3.579.2.441132-38-4931Blzmlqo0294502 2.840.1.032507.3.579.2.562871-26-4613Onfrony32109935 2.16840.1.626541.3.579.2.45843-84-1014Cikriqm44036261 2.16840.1.674136.3.579.2.01919-44-4738Fammkhf27909477 2.16840.1.133375.3.579.2.07233-66-3714Jretday82283572 2.16.840.1.991883.3.579.2.53002-63-6736Otrokpm08159383 2.0.1.059070.3.579.2.15212-25-2988Ficpusa60710535 2.0.1.092249.3.579.2.16729-91-2928Gtnzhgx97280798 2..1.966838.3.579.2.33732-65-0580Uwtfxbh70111624 2..1.897258.3.579.2.99641-58-6914Bxmuldl21602769 2..1.192691.3.579.2.66117-61-2660Qhnegxv22727524 2..1.034075.3.579.2.78362-72-6542Akqpoas686134052 2..1.229407.3.579.2.326971-33-0483Ylspsua806925253 2..1.274721.3.579.2.9337Kzkfxog644796519KnkkpsaYhlsxiqle MRYC7535109620 91g5mv2o-6su6-54w7-h2vl-00y4126r329vXsqayomKizojupnswh655002298 wc63798g-38p0-40w7-7255-30025cl8220eKirbotl05951620 2.0.1.491151.3.579.2.472Qfyekrc51308664 2.0.1.051453.3.579.2.531 Ovmqonb18726785 2.0.1.589215.3.579.2.464Advsgwi72400575 2.0.1.704979.3.579.2.244Shhcefg79873140 2.16.840.1.992755.3.579.2.531 Psipnbt20367702 2.16.840.1.874968.3.579.2.537Vnswmru52362037 2.16.840.1.545901.3.579.2.484Ibywkpf85253138 2.16.840.1.943164.3.579.2.531 Accgfgi45152180 2.16.840.1.572692.3.579.2.865Xbqmyjq19381194 2.16.840.1.299926.3.579.2.285Iurbrtl06987665 2.16.840.1.589278.3.579.2.531 Cucqveo33477226 2.16.840.1.482608.3.579.2.548Vlxtvpc29867220 2.16.840.1.796689.3.579.2.981Rdectpd51172217 2.16.840.1.326555.3.579.2.531 Aofvfnh68071287 2.16.840.1.347534.3.579.2.007Ydlxlbl14991466 2.16.840.1.099053.3.579.2.290Mfahdmm52136649 2.16.840.1.608862.3.579.2.531 Tjfaine86455441 2.840.1.628523.3.579.2.531 Social History DateTypeDetailFacilityStart: 10-17-2019 End: 94-17-3959Edyaggu smoking status NHISEx-smoker (finding)[facility] Hospitaltart: 53-00-8407Eon Assigned At BirthWVUMedicine Barnesville Hospitaltart: 04-14-2023 End: 98-01-8372Eo alcohol useNo alcohol useProMedica Health SystemComment on above:pop occasioanl;quit in the 's;Start: 04-14-2023 End: 35-52-5384Oyp Assigned At BirthMalAdams County Regional Medical Centertart: 14-95-5217Otgahmo smoking statusNeverExecutive [facility] of [facility] Hospitaltart: 70-54-8876Ithqkeg smoking status NHISNever smoked tobacco [facility] HealthcareStart: 12-26-2023 End: 10-44-4576Fkkwkhi use and exposureSmokeless tobacco non-userNOMS Healthcare Start: 12-26-2023 End: 81-43-9196Rlrrsea intakeLifetime non-drinker (finding)[facility] HealthcareStart: 18-81-4247Tdmgbtb Commentnone caffeineNOMS HealthcareStart: 72-42-9219Tia Assigned At BirthNot on fileNOMS HealthcareStart: 06-26-2015 End: 74-31-1063VcbWgza (finding)[facility] Hospitaltart: 05-28-1975 End: 95-46-1839Bhbkjep of tobacco useCurrent smokerNOMS HealthcareStart: 05-28-1975 End: 63-32-6262Sirifmo of tobacco useCigarette SmokerNOMS HealthcareHistory of tobacco usePassive smokerProMedica Health SystemStart: 10-09-2024 End: 76-15-0145Cpgsjxoac beverage intakeEx-drinker (finding)[facility] SystemHas the [employer], gas, oil, or water Coinfloor threatened to shut off services in your home in past 12MoNoProMedica Health SystemDo you belong to any clubs or organizations such as yazidism groups, unions, fraternal or athletic josephine ups, or school groups?YesProMedica Health SystemAre you now , , , , never or living with a partner?MarriedProMedica Health SystemHow often to you have a drink containing alcohol?NeverProMedica Health SystemDo you feel stress - tense, restless, nervous, or anxious, or unable to sleep at night because yourmind is troubled all the time - these days [OSQ]Not at allProMedica Health SystemSexual OrientationExec[facility] Medical Equipment Procedure CodeEquipment CodeEquipment Original TextEquipment IdentifierDatesCAGE [id number] 6DEG CAPSTONEFDAStart: 67-16-9867BNGNF SET S4 AESCULAPFDAStart: 38-84-6332WGYWM SET S4 AESCULAPFDAStart: 31-44-3634ZQQHL SET S4 AESCULAPFDA Start: 24-79-1202WTLEF SET S4 AESCULAPFDAStart: 70-08-3783XHMRVXPIYI COARSE 7.5CCFDAStart: 09-31-5619KRFKNI XX SMALL 0.7CCFDAStart: 49-00-3618CKJ S4 CVD 5.5X45MM AESCULAPFDAStart: 22-76-1572UXV S4 CVD 5.5X50MM AESCULAPFDAStart: 87-61-9369YGUUB S4 6X40MM MONO AESCULAPFDAStart: 20-15-8364SEXBM S4 6X40MM MONO AESCULAPFDAStart: 03-87-4215MQJEK S4 6X45MM POLY AESCULAPFDAStart: 07-24-2019 SCREW S4 6X45MM POLY AESCULAPFDAStart: 57-27-8455RURK 43E53JY 6DEG CAPSTONEFDA Start: 62-99-5367GFBSF SET S4 AESCULAPFDAStart: 92-68-9421JJSEP SET S4 AESCULAP FDAStart: 51-04-6814ASDTN SET S4 AESCULAPFDAStart: 94-00-6045MZTPX SET S4 AESCULAPFDAStart: 40-83-5241HMFLMQOITB COARSE 7.5CCFDAStart: 85-63-6181JIPGUL XX SMALL 0.7CCFDAStart: 22-39-8863WPG S4 CVD 5.5X45MM AESCULAPFDAStart: 07-24-2019 ARASH S4 CVD 5.5X50MM AESCULAPFDAStart: 81-11-1295EFGCB S4 6X40MM MONO AESCULAPFDA Start: 51-28-1911MMQTN S4 6X40MM MONO AESCULAPFDAStart: 70-42-6851QFMRW S4 6X45MM POLY AESCULAPFDAStart: 54-50-8450JBHAZ S4 6X45MM POLY AESCULAPFDAStart: 71-56-4559UNXS 68C93TN 6DEG CAPSTONEFDAStart: 28-98-3576ZPINJ SET S4 AESCULAPFDA Start: 92-27-4726UIOOF SET S4 AESCULAPFDAStart: 62-38-4827GOOPN SET S4 AESCULAP FDAStart: 40-70-9003SUUTI SET S4 AESCULAPFDAStart: 69-50-7907HGTAQPNRNF COARSE 7.5CCFDAStart: 03-39-6052ZGMGAS XX SMALL 0.7CCFDAStart: 70-79-6918CLB S4 CVD 5.5X45MM AESCULAPFDAStart: 92-79-4773FPW S4 CVD 5.5X50MM AESCULAPFDAStart: 56-20-9844EAAGJ S4 6X40MM MONO AESCULAPFDAStart: 90-68-8507RTSVH S4 6X40MM MONO AESCULAPFDAStart: 81-23-1213JIUJI S4 6X45MM POLY AESCULAPFDAStart: 07-24-2019 SCREW S4 6X45MM POLY AESCULAPFDAStart: 92-88-8388WLKV 91B21TC 6DEG CAPSTONEFDA Start: 81-78-5402HXCTR SET S4 AESCULAPFDAStart: 65-73-9801UMUFJ SET S4 AESCULAP FDAStart: 72-93-2185TPVJS SET S4 AESCULAPFDAStart: 90-75-5197YGWGW SET S4 AESCULAPFDAStart: 91-22-7942TAADZWDNLH COARSE 7.5CCFDAStart: 35-43-0119ULHWDQ XX SMALL 0.7CCFDAStart: 37-69-2025UQW S4 CVD 5.5X45MM AESCULAPFDAStart: 07-24-2019 ARASH S4 CVD 5.5X50MM AESCULAPFDAStart: 28-50-2045DVBKG S4 6X40MM MONO AESCULAPFDA Start: 30-21-7268VBRPA S4 6X40MM MONO AESCULAPFDAStart: 66-18-5554RTFBE S4 6X45MM POLY AESCULAPFDAStart: 27-15-4250YAEEC S4 6X45MM POLY AESCULAPFDAStart: 64-57-3581LTDP 07O51YO 6DEG CAPSTONEFDAStart: 16-29-3568EMEPW SET S4 AESCULAPFDA Start: 26-17-7341RPDYB SET S4 AESCULAPFDAStart: 04-44-7613ORCXD SET S4 AESCULAP FDAStart: 31-61-8174DGEHJ SET S4 AESCULAPFDAStart: 95-60-2927YTGMBVDNDU COARSE 7.5CCFDAStart: 11-56-1499TJKJGU XX SMALL 0.7CCFDAStart: 22-10-4458FUM S4 CVD 5.5X45MM AESCULAPFDAStart: 60-08-5131HKR S4 CVD 5.5X50MM AESCULAPFDAStart: 91-78-2591IJCYH S4 6X40MM MONO AESCULAPFDAStart: 90-95-1564WECYU S4 6X40MM MONO AESCULAPFDAStart: 58-05-0033MUTKX S4 6X45MM POLY AESCULAPFDAStart: 07-24-2019 SCREW S4 6X45MM POLY AESCULAPFDAStart: 00-38-1926EIZF 97N81SZ 6DEG CAPSTONEFDA Start: 26-95-5724QIPMZ SET S4 AESCULAPFDAStart: 65-31-9070FCBHP SET S4 AESCULAP FDAStart: 11-15-1506ZCICG SET S4 AESCULAPFDAStart: 91-94-5588OLCNX SET S4 AESCULAPFDAStart: 95-79-9421MHSLVGLWVH COARSE 7.5CCFDAStart: 96-13-3017XBVCMG XX SMALL 0.7CCFDAStart: 39-23-9877DKK S4 CVD 5.5X45MM AESCULAPFDAStart: 07-24-2019 ARASH S4 CVD 5.5X50MM AESCULAPFDAStart: 92-58-6241YTBBY S4 6X40MM MONO AESCULAPFDA Start: 45-35-1317XTKVT S4 6X40MM MONO AESCULAPFDAStart: 31-30-7394IXCIV S4 6X45MM POLY AESCULAPFDAStart: 77-27-6897YUDNN S4 6X45MM POLY AESCULAPFDAStart: 80-94-1396HDFU 63J57IF 6DEG CAPSTONEFDAStart: 34-73-6361ATCGP SET S4 AESCULAPFDA Start: 39-18-0618XVSXJ SET S4 AESCULAPFDAStart: 72-35-0881YZQRC SET S4 AESCULAP FDAStart: 29-01-7458SLPWB SET S4 AESCULAPFDAStart: 60-86-8047ETBHZLKYWO COARSE 7.5CCFDAStart: 02-62-2115MJSAOZ XX SMALL 0.7CCFDAStart: 08-93-8284XAA S4 CVD 5.5X45MM AESCULAPFDAStart: 16-20-1081GGF S4 CVD 5.5X50MM AESCULAPFDAStart: 00-47-9378NBICB S4 6X40MM MONO AESCULAPFDAStart: 94-99-0281ETEIA S4 6X40MM MONO AESCULAPFDAStart: 75-06-7571REPPL S4 6X45MM POLY AESCULAPFDAStart: 07-24-2019 SCREW S4 6X45MM POLY AESCULAPFDAStart: 39-62-6010STLF 81V80GK 6DEG CAPSTONEFDA Start: 76-69-4580BXUJN SET S4 AESCULAPFDAStart: 30-36-2652UHUZS SET S4 AESCULAP FDAStart: 61-26-2905NYHCJ SET S4 AESCULAPFDAStart: 70-58-7165SIZUG SET S4 AESCULAPFDAStart: 02-34-0350KEAALERVMK COARSE 7.5CCFDAStart: 30-04-5876USFHDE XX SMALL 0.7CCFDAStart: 10-97-3078LQS S4 CVD 5.5X45MM AESCULAPFDAStart: 07-24-2019 ARASH S4 CVD 5.5X50MM AESCULAPFDAStart: 14-83-4204QFDTK S4 6X40MM MONO AESCULAPFDA Start: 83-79-9221YCFED S4 6X40MM MONO AESCULAPFDAStart: 87-33-1084OAKGN S4 6X45MM POLY AESCULAPFDAStart: 30-05-0155HKVDO S4 6X45MM POLY AESCULAPFDAStart: 15-58-3243WYUW 67T74GR 6DEG CAPSTONEFDAStart: 15-58-8896JQVCK SET S4 AESCULAPFDA Start: 07-27-6167ZKJMM SET S4 AESCULAPFDAStart: 93-13-4435VBZUR SET S4 AESCULAP FDAStart: 27-42-9872VXIDE SET S4 AESCULAPFDAStart: 45-35-9641DUDMZKVYEZ COARSE 7.5CCFDAStart: 19-10-1365EIUKGB XX SMALL 0.7CCFDAStart: 62-14-8365DBU S4 CVD 5.5X45MM AESCULAPFDAStart: 18-78-4757AET S4 CVD 5.5X50MM AESCULAPFDAStart: 73-05-9178ETJXH S4 6X40MM MONO AESCULAPFDAStart: 71-61-0445XCNMF S4 6X40MM MONO AESCULAPFDAStart: 43-14-6164XKBIK S4 6X45MM POLY AESCULAPFDAStart: 07-24-2019 SCREW S4 6X45MM POLY AESCULAPFDAStart: 18-03-6677KGAM 43Q18HV 6DEG CAPSTONEFDA Start: 07-16-2892FLFZS SET S4 AESCULAPFDAStart: 67-37-0001MBQQT SET S4 AESCULAP FDAStart: 48-60-1414IDBWY SET S4 AESCULAPFDAStart: 83-67-3744TRVSS SET S4 AESCULAPFDAStart: 50-90-7384QBTODEOEJP COARSE 7.5CCFDAStart: 51-51-7336RGZEOT XX SMALL 0.7CCFDAStart: 34-02-6348NNF S4 CVD 5.5X45MM AESCULAPFDAStart: 07-24-2019 ARASH S4 CVD 5.5X50MM AESCULAPFDAStart: 87-71-9462MLCCC S4 6X40MM MONO AESCULAPFDA Start: 31-40-6057UNOTF S4 6X40MM MONO AESCULAPFDAStart: 26-12-4279VEMAC S4 6X45MM POLY AESCULAPFDAStart: 05-74-5299SDLVA S4 6X45MM POLY AESCULAPFDAStart: 89-31-7279MEVT 74U98CP 6DEG CAPSTONEFDAStart: 13-75-8657PMEUJ SET S4 AESCULAPFDA Start: 32-87-6967RVAAL SET S4 AESCULAPFDAStart: 41-42-4605KSXQS SET S4 AESCULAP FDAStart: 76-24-0074WPQKN SET S4 AESCULAPFDAStart: 48-38-2980KZPQXHSQZV COARSE 7.5CCFDAStart: 47-26-6239UQBYHQ XX SMALL 0.7CCFDAStart: 96-05-6402MFW S4 CVD 5.5X45MM AESCULAPFDAStart: 25-05-0620HCN S4 CVD 5.5X50MM AESCULAPFDAStart: 65-72-1770ODQVP S4 6X40MM MONO AESCULAPFDAStart: 19-69-8718MJWGY S4 6X40MM MONO AESCULAPFDAStart: 62-60-5593VHDKH S4 6X45MM POLY AESCULAPFDAStart: 07-24-2019 SCREW S4 6X45MM POLY AESCULAPFDAStart: 72-72-9704XLPP 83F30PM 6DEG CAPSTONEFDA Start: 25-46-2006OMESS SET S4 AESCULAPFDAStart: 18-49-9689OPURX SET S4 AESCULAP FDAStart: 85-34-8408HJRCL SET S4 AESCULAPFDAStart: 96-38-5216IFVEG SET S4 AESCULAPFDAStart: 23-04-1358WJWIWXFSIR COARSE 7.5CCFDAStart: 32-36-8865FQOCNM XX SMALL 0.7CCFDAStart: 82-20-8613QDE S4 CVD 5.5X45MM AESCULAPFDAStart: 07-24-2019 ARASH S4 CVD 5.5X50MM AESCULAPFDAStart: 91-73-7740BISWV S4 6X40MM MONO AESCULAPFDA Start: 54-77-7582RBYXJ S4 6X40MM MONO AESCULAPFDAStart: 30-68-7666KEKWW S4 6X45MM POLY AESCULAPFDAStart: 46-70-4988GXJCV S4 6X45MM POLY AESCULAPFDAStart: 70-50-7338LTCP 36P71IQ 6DEG CAPSTONEFDAStart: 65-41-3478DBHNH SET S4 AESCULAPFDA Start: 72-54-6939JRLVR SET S4 AESCULAPFDAStart: 71-02-5793KPYJS SET S4 AESCULAP FDAStart: 09-61-0318PFWMW SET S4 AESCULAPFDAStart: 79-55-7142QMZXYOJGOQ COARSE 7.5CCFDAStart: 23-68-3677GUALEB XX SMALL 0.7CCFDAStart: 63-93-2319UQM S4 CVD 5.5X45MM AESCULAPFDAStart: 85-95-1880ILR S4 CVD 5.5X50MM AESCULAPFDAStart: 35-72-4284BRDRV S4 6X40MM MONO AESCULAPFDAStart: 76-95-9164CUBOM S4 6X40MM MONO AESCULAPFDAStart: 05-64-2257IAYKH S4 6X45MM POLY AESCULAPFDAStart: 07-24-2019 SCREW S4 6X45MM POLY AESCULAPFDAStart: 90-94-6444EAMH 74D72AU 6DEG CAPSTONEFDA Start: 81-28-1448PQIVD SET S4 AESCULAPFDAStart: 25-96-0491GHBZN SET S4 AESCULAP FDAStart: 27-14-0840DCIYO SET S4 AESCULAPFDAStart: 45-25-3426VSOTT SET S4 AESCULAPFDAStart: 52-67-5800ADYLPTEXIC COARSE 7.5CCFDAStart: 66-77-1007KOHFHH XX SMALL 0.7CCFDAStart: 97-79-7773OWO S4 CVD 5.5X45MM AESCULAPFDAStart: 07-24-2019 ARASH S4 CVD 5.5X50MM AESCULAPFDAStart: 01-80-3178XASMG S4 6X40MM MONO AESCULAPFDA Start: 93-16-4950QCKIN S4 6X40MM MONO AESCULAPFDAStart: 93-54-4523WBDRG S4 6X45MM POLY AESCULAPFDAStart: 82-12-7897TUGMS S4 6X45MM POLY AESCULAPFDAStart: 58-84-9215PURM 93P66XO 6DEG CAPSTONEFDAStart: 89-10-5811JJCZJ SET S4 AESCULAPFDA Start: 41-48-5435OZQDP SET S4 AESCULAPFDAStart: 87-84-1767PTXYK SET S4 AESCULAP FDAStart: 33-26-3156BNDCM SET S4 AESCULAPFDAStart: 97-41-3913PTANQGQFTL COARSE 7.5CCFDAStart: 72-56-1429ZWMZYS XX SMALL 0.7CCFDAStart: 37-30-2917KFM S4 CVD 5.5X45MM AESCULAPFDAStart: 68-27-7262FZG S4 CVD 5.5X50MM AESCULAPFDAStart: 39-46-9551TYFGJ S4 6X40MM MONO AESCULAPFDAStart: 91-53-0091ZGVFV S4 6X40MM MONO AESCULAPFDAStart: 30-04-4228RDDNT S4 6X45MM POLY AESCULAPFDAStart: 07-24-2019 SCREW S4 6X45MM POLY AESCULAPFDAStart: 75-44-0890WBWS 58V39PD 6DEG CAPSTONEFDA Start: 57-81-4529RGURW SET S4 AESCULAPFDAStart: 45-45-9289PIQJL SET S4 AESCULAP FDAStart: 52-50-9749KRFXR SET S4 AESCULAPFDAStart: 95-48-8026XOTAR SET S4 AESCULAPFDAStart: 17-36-6113ZTHAZEBTGY COARSE 7.5CCFDAStart: 75-63-4001SCUAUZ XX SMALL 0.7CCFDAStart: 64-85-8593HLZ S4 CVD 5.5X45MM AESCULAPFDAStart: 07-24-2019 ARASH S4 CVD 5.5X50MM AESCULAPFDAStart: 79-42-7403SIWML S4 6X40MM MONO AESCULAPFDA Start: 77-03-0764KDLXE S4 6X40MM MONO AESCULAPFDAStart: 25-05-6344MUPTT S4 6X45MM POLY AESCULAPFDAStart: 46-09-2492XUAPZ S4 6X45MM POLY AESCULAPFDAStart: 68-68-2369GJJV 26O98JA 6DEG CAPSTONEFDAStart: 66-88-0514ADBGI SET S4 AESCULAPFDA Start: 48-88-5236OXSMT SET S4 AESCULAPFDAStart: 46-25-5923CQFZK SET S4 AESCULAP FDAStart: 58-96-7735WPQWT SET S4 AESCULAPFDAStart: 31-43-3883FEEEIEPRZB COARSE 7.5CCFDAStart: 48-05-1489GTWBIL XX SMALL 0.7CCFDAStart: 84-15-8984SWB S4 CVD 5.5X45MM AESCULAPFDAStart: 09-51-8522XAQ S4 CVD 5.5X50MM AESCULAPFDAStart: 76-00-7703SQJLH S4 6X40MM MONO AESCULAPFDAStart: 96-52-7580CWGPI S4 6X40MM MONO AESCULAPFDAStart: 52-24-1505HJGJS S4 6X45MM POLY AESCULAPFDAStart: 07-24-2019 SCREW S4 6X45MM POLY AESCULAPFDAStart: 18-12-8198YYGR 46F63OX 6DEG CAPSTONEFDA Start: 09-88-9411DCSUQ SET S4 AESCULAPFDAStart: 95-03-2605ASWYY SET S4 AESCULAP FDAStart: 69-89-8583UIGHZ SET S4 AESCULAPFDAStart: 96-71-2202EBKQY SET S4 AESCULAPFDAStart: 81-26-5199QOJZGBAUDT COARSE 7.5CCFDAStart: 37-89-7749FYEQAF XX SMALL 0.7CCFDAStart: 34-97-3022FUA S4 CVD 5.5X45MM AESCULAPFDAStart: 07-24-2019 ARASH S4 CVD 5.5X50MM AESCULAPFDAStart: 62-86-8036QGSYP S4 6X40MM MONO AESCULAPFDA Start: 46-15-4393MTOYP S4 6X40MM MONO AESCULAPFDAStart: 28-48-1998WVWVB S4 6X45MM POLY AESCULAPFDAStart: 06-49-9456VIQSE S4 6X45MM POLY AESCULAPFDAStart: 30-51-9054EXSK 35Z17XJ 6DEG CAPSTONEFDAStart: 85-34-4184JVXNA SET S4 AESCULAPFDA Start: 53-88-2917EZDTX SET S4 AESCULAPFDAStart: 59-95-0569OPNRG SET S4 AESCULAP FDAStart: 80-64-4469AKTVL SET S4 AESCULAPFDAStart: 26-48-6702KJTKPAYOEA COARSE 7.5CCFDAStart: 46-42-5467MPFZHO XX SMALL 0.7CCFDAStart: 75-49-5689FTL S4 CVD 5.5X45MM AESCULAPFDAStart: 58-83-0795JQV S4 CVD 5.5X50MM AESCULAPFDAStart: 27-14-6208JBVXC S4 6X40MM MONO AESCULAPFDAStart: 22-94-9613ZITIE S4 6X40MM MONO AESCULAPFDAStart: 77-02-5566GEEAG S4 6X45MM POLY AESCULAPFDAStart: 07-24-2019 SCREW S4 6X45MM POLY AESCULAPFDAStart: 98-04-9703SSVF 32K68LS 6DEG CAPSTONEFDA Start: 69-82-3541WRQWG SET S4 AESCULAPFDAStart: 07-22-2544DQLVA SET S4 AESCULAP FDAStart: 66-83-2099KIRJJ SET S4 AESCULAPFDAStart: 73-92-6266ZWBMD SET S4 AESCULAPFDAStart: 86-34-2308OCECEZVCOR COARSE 7.5CCFDAStart: 61-81-0296YIBLKH XX SMALL 0.7CCFDAStart: 94-80-5141UBS S4 CVD 5.5X45MM AESCULAPFDAStart: 07-24-2019 ARASH S4 CVD 5.5X50MM AESCULAPFDAStart: 79-18-7177THOIY S4 6X40MM MONO AESCULAPFDA Start: 07-37-2841LYJXH S4 6X40MM MONO AESCULAPFDAStart: 23-98-1022UXUPQ S4 6X45MM POLY AESCULAPFDAStart: 96-24-1131EOYWX S4 6X45MM POLY AESCULAPFDAStart: 02-57-3215VWWM 34B35BI 6DEG CAPSTONEFDAStart: 60-52-4905QIJQU SET S4 AESCULAPFDA Start: 42-73-5479YSMOS SET S4 AESCULAPFDAStart: 25-42-0647YGBDS SET S4 AESCULAP FDAStart: 30-96-1737NQVRY SET S4 AESCULAPFDAStart: 68-07-6728JXTMLKEVZI COARSE 7.5CCFDAStart: 94-83-6586KOXYYX XX SMALL 0.7CCFDAStart: 39-65-0450TXR S4 CVD 5.5X45MM AESCULAPFDAStart: 67-71-5150USW S4 CVD 5.5X50MM AESCULAPFDAStart: 56-33-0122BVMAD S4 6X40MM MONO AESCULAPFDAStart: 94-70-9000LSXTI S4 6X40MM MONO AESCULAPFDAStart: 86-48-1831NKIJG S4 6X45MM POLY AESCULAPFDAStart: 07-24-2019 SCREW S4 6X45MM POLY AESCULAPFDAStart: 48-68-4255PDKV 59I88DQ 6DEG CAPSTONEFDA Start: 50-58-8854GUKWO SET S4 AESCULAPFDAStart: 17-47-6152MBEAF SET S4 AESCULAP FDAStart: 90-43-9765EEBLH SET S4 AESCULAPFDAStart: 78-54-3023NQENC SET S4 AESCULAPFDAStart: 82-53-7957ZPGDILQELJ COARSE 7.5CCFDAStart: 61-66-9548EOBGDW XX SMALL 0.7CCFDAStart: 51-41-2967GEJ S4 CVD 5.5X45MM AESCULAPFDAStart: 07-24-2019 ARASH S4 CVD 5.5X50MM AESCULAPFDAStart: 99-54-1071FUCGU S4 6X40MM MONO AESCULAPFDA Start: 61-17-5065TOGXC S4 6X40MM MONO AESCULAPFDAStart: 70-18-6994KASHU S4 6X45MM POLY AESCULAPFDAStart: 79-53-8337BENHK S4 6X45MM POLY AESCULAPFDAStart: 65-98-0193BGGG 11Y45PL 6DEG CAPSTONEFDAStart: 81-28-4911CGXWP SET S4 AESCULAPFDA Start: 65-92-2632CCWAD SET S4 AESCULAPFDAStart: 59-90-5691RUGGJ SET S4 AESCULAP FDAStart: 02-85-6322SUYLZ SET S4 AESCULAPFDAStart: 45-76-4750ARGMWOHDFK COARSE 7.5CCFDAStart: 58-21-6724YVHGGO XX SMALL 0.7CCFDAStart: 88-52-9559ECQ S4 CVD 5.5X45MM AESCULAPFDAStart: 76-45-9267JXV S4 CVD 5.5X50MM AESCULAPFDAStart: 32-04-8045WIJKI S4 6X40MM MONO AESCULAPFDAStart: 43-97-0762LNWJJ S4 6X40MM MONO AESCULAPFDAStart: 98-82-3670OHJDI S4 6X45MM POLY AESCULAPFDAStart: 07-24-2019 SCREW S4 6X45MM POLY AESCULAPFDAStart: 92-62-9872ABOG 43Y63MC 6DEG CAPSTONEFDA Start: 43-34-4808KCDXE SET S4 AESCULAPFDAStart: 61-39-3147HRINI SET S4 AESCULAP FDAStart: 82-22-2065IFGLH SET S4 AESCULAPFDAStart: 16-69-1787ZVDSH SET S4 AESCULAPFDAStart: 41-31-4219GPFUXJZBBN COARSE 7.5CCFDAStart: 39-58-8015IRGVOC XX SMALL 0.7CCFDAStart: 15-73-7834GBP S4 CVD 5.5X45MM AESCULAPFDAStart: 07-24-2019 ARASH S4 CVD 5.5X50MM AESCULAPFDAStart: 78-05-6465CCPRQ S4 6X40MM MONO AESCULAPFDA Start: 41-06-7670WZJNC S4 6X40MM MONO AESCULAPFDAStart: 66-70-6541LNBPA S4 6X45MM POLY AESCULAPFDAStart: 10-08-6222PJEBD S4 6X45MM POLY AESCULAPFDAStart: 29-01-8467LATU 87B45RI 6DEG CAPSTONEFDAStart: 29-78-7689OBSMN SET S4 AESCULAPFDA Start: 33-24-7974LDNTH SET S4 AESCULAPFDAStart: 00-96-9167OLHNK SET S4 AESCULAP FDAStart: 26-68-6085XRCJW SET S4 AESCULAPFDAStart: 00-39-3170DYAUHSUCIM COARSE 7.5CCFDAStart: 81-46-8795CNAEOT XX SMALL 0.7CCFDAStart: 13-01-0221GTS S4 CVD 5.5X45MM AESCULAPFDAStart: 63-54-4227PLU S4 CVD 5.5X50MM AESCULAPFDAStart: 47-83-2059DJRPG S4 6X40MM MONO AESCULAPFDAStart: 76-90-3382FLSEM S4 6X40MM MONO AESCULAPFDAStart: 84-82-3784SCATG S4 6X45MM POLY AESCULAPFDAStart: 07-24-2019 SCREW S4 6X45MM POLY AESCULAPFDAStart: 05-82-0165MVTF 51A10JU 6DEG CAPSTONEFDA Start: 35-21-1349UHPYB SET S4 AESCULAPFDAStart: 58-80-2760AOFVM SET S4 AESCULAP FDAStart: 09-40-7734KJFMA SET S4 AESCULAPFDAStart: 74-45-3343HMIJE SET S4 AESCULAPFDAStart: 69-65-4138UESFNFJLKI COARSE 7.5CCFDAStart: 09-48-6981NCCBDD XX SMALL 0.7CCFDAStart: 56-89-9405WIT S4 CVD 5.5X45MM AESCULAPFDAStart: 07-24-2019 ARASH S4 CVD 5.5X50MM AESCULAPFDAStart: 91-82-3385UVPYP S4 6X40MM MONO AESCULAPFDA Start: 40-64-5877RUGHQ S4 6X40MM MONO AESCULAPFDAStart: 93-55-0997PQATV S4 6X45MM POLY AESCULAPFDAStart: 73-93-6468LPKMR S4 6X45MM POLY AESCULAPFDAStart: 36-29-2798QHLL 57F99HP 6DEG CAPSTONEFDAStart: 26-38-0044DOMBJ SET S4 AESCULAPFDA Start: 80-40-7335HUUIM SET S4 AESCULAPFDAStart: 42-11-7804XKIYU SET S4 AESCULAP FDAStart: 14-10-9740NXNHF SET S4 AESCULAPFDAStart: 07-53-3264QDTNTKXYRF COARSE 7.5CCFDAStart: 25-38-2785WLDEDM XX SMALL 0.7CCFDAStart: 70-85-0385HWH S4 CVD 5.5X45MM AESCULAPFDAStart: 75-29-2619UVK S4 CVD 5.5X50MM AESCULAPFDAStart: 56-10-0813BWASS S4 6X40MM MONO AESCULAPFDAStart: 92-19-4561IECQJ S4 6X40MM MONO AESCULAPFDAStart: 70-05-3734BIHDN S4 6X45MM POLY AESCULAPFDAStart: 07-24-2019 SCREW S4 6X45MM POLY AESCULAPFDAStart: 66-90-4371EVDR 95S64DP 6DEG CAPSTONEFDA Start: 66-01-6538TYYZM SET S4 AESCULAPFDAStart: 87-81-4808LKZRS SET S4 AESCULAP FDAStart: 21-44-9472YOVUA SET S4 AESCULAPFDAStart: 58-28-4288COAQL SET S4 AESCULAPFDAStart: 82-17-3502BOFCHZKLBG COARSE 7.5CCFDAStart: 60-70-0108WZLFJV XX SMALL 0.7CCFDAStart: 27-68-7253OEO S4 CVD 5.5X45MM AESCULAPFDAStart: 07-24-2019 ARASH S4 CVD 5.5X50MM AESCULAPFDAStart: 83-14-2342DOCHE S4 6X40MM MONO AESCULAPFDA Start: 74-82-4741OBZFB S4 6X40MM MONO AESCULAPFDAStart: 95-14-5800RZZOW S4 6X45MM POLY AESCULAPFDAStart: 47-36-7956TFJEH S4 6X45MM POLY AESCULAPFDAStart: 37-40-1194EBBF 24Q83AV 6DEG CAPSTONEFDAStart: 73-74-4602AOHFQ SET S4 AESCULAPFDA Start: 13-34-6604JZDPU SET S4 AESCULAPFDAStart: 41-33-7539XSRVP SET S4 AESCULAP FDAStart: 63-96-5732DGNFA SET S4 AESCULAPFDAStart: 00-07-5373OLIUGJJPEU COARSE 7.5CCFDAStart: 15-49-7518YTEUGU XX SMALL 0.7CCFDAStart: 21-84-7227OGJ S4 CVD 5.5X45MM AESCULAPFDAStart: 22-89-8792SEO S4 CVD 5.5X50MM AESCULAPFDAStart: 33-65-1216QUWRJ S4 6X40MM MONO AESCULAPFDAStart: 38-68-8720KCBDW S4 6X40MM MONO AESCULAPFDAStart: 51-74-1060DODPM S4 6X45MM POLY AESCULAPFDAStart: 07-24-2019 SCREW S4 6X45MM POLY AESCULAPFDAStart: 34-30-9519WKNB 59A24BN 6DEG CAPSTONEFDA Start: 87-18-8610RQDIC SET S4 AESCULAPFDAStart: 92-32-1042FHNYE SET S4 AESCULAP FDAStart: 42-76-6414MJOGZ SET S4 AESCULAPFDAStart: 44-37-3385CEGMW SET S4 AESCULAPFDAStart: 73-68-2906PGVYDRTXTV COARSE 7.5CCFDAStart: 60-52-4741DRSITW XX SMALL 0.7CCFDAStart: 63-99-3955DVN S4 CVD 5.5X45MM AESCULAPFDAStart: 07-24-2019 ARASH S4 CVD 5.5X50MM AESCULAPFDAStart: 84-20-9966CQTOL S4 6X40MM MONO AESCULAPFDA Start: 99-02-4666SUVMD S4 6X40MM MONO AESCULAPFDAStart: 24-89-8905SUQAI S4 6X45MM POLY AESCULAPFDAStart: 98-11-2444ZHAWY S4 6X45MM POLY AESCULAPFDAStart: 38-36-5140FHFU 61J36SC 6DEG CAPSTONEFDAStart: 76-24-9196AAXHX SET S4 AESCULAPFDA Start: 26-94-2191SWUKI SET S4 AESCULAPFDAStart: 05-66-7235YZOQP SET S4 AESCULAP FDAStart: 19-74-9601AGKIW SET S4 AESCULAPFDAStart: 20-11-1439VKVEUMKDTR COARSE 7.5CCFDAStart: 01-50-4140UFGRZJ XX SMALL 0.7CCFDAStart: 01-59-9169RWU S4 CVD 5.5X45MM AESCULAPFDAStart: 48-96-5797EKL S4 CVD 5.5X50MM AESCULAPFDAStart: 17-06-4961TEFQI S4 6X40MM MONO AESCULAPFDAStart: 35-88-9618LSWGO S4 6X40MM MONO AESCULAPFDAStart: 98-16-8451SMYNW S4 6X45MM POLY AESCULAPFDAStart: 07-24-2019 SCREW S4 6X45MM POLY AESCULAPFDAStart: 86-36-9125STEE 40M89GE 6DEG CAPSTONEFDA Start: 01-75-2804KOVWU SET S4 AESCULAPFDAStart: 38-31-8804WDNKY SET S4 AESCULAP FDAStart: 00-63-1666DODGU SET S4 AESCULAPFDAStart: 38-49-2438BHDSR SET S4 AESCULAPFDAStart: 64-86-5465LMNHJPLCAR COARSE 7.5CCFDAStart: 72-17-5330SCBAMZ XX SMALL 0.7CCFDAStart: 32-86-4162THW S4 CVD 5.5X45MM AESCULAPFDAStart: 07-24-2019 ARASH S4 CVD 5.5X50MM AESCULAPFDAStart: 73-42-1126ZMAVA S4 6X40MM MONO AESCULAPFDA Start: 05-77-3925BUJAU S4 6X40MM MONO AESCULAPFDAStart: 05-30-3128QANUO S4 6X45MM POLY AESCULAPFDAStart: 48-94-7223MXMVJ S4 6X45MM POLY AESCULAPFDAStart: 67-90-5556TRGQ 76L13OZ 6DEG CAPSTONEFDAStart: 64-66-6874YNXTA SET S4 AESCULAPFDA Start: 69-40-1366AIWZB SET S4 AESCULAPFDAStart: 75-82-1153JBJEH SET S4 AESCULAP FDAStart: 29-13-3733YNLNW SET S4 AESCULAPFDAStart: 69-19-5663JVBEPYPJBU COARSE 7.5CCFDAStart: 19-34-7082STLCKT XX SMALL 0.7CCFDAStart: 75-06-7268OUA S4 CVD 5.5X45MM AESCULAPFDAStart: 74-59-5243DRL S4 CVD 5.5X50MM AESCULAPFDAStart: 39-55-9724HQXTU S4 6X40MM MONO AESCULAPFDAStart: 13-23-0688IPCHB S4 6X40MM MONO AESCULAPFDAStart: 04-23-2233OTTRG S4 6X45MM POLY AESCULAPFDAStart: 07-24-2019 SCREW S4 6X45MM POLY AESCULAPFDAStart: 18-15-4387SKXC 69A60OH 6DEG CAPSTONEFDA Start: 78-86-4101SFHLV SET S4 AESCULAPFDAStart: 90-93-2461BVSBN SET S4 AESCULAP FDAStart: 60-67-5459AQSJJ SET S4 AESCULAPFDAStart: 90-34-6906AUOQH SET S4 AESCULAPFDAStart: 21-66-3780YYFIJPYJIQ COARSE 7.5CCFDAStart: 39-73-1924SCHMSQ XX SMALL 0.7CCFDAStart: 57-00-4982BDG S4 CVD 5.5X45MM AESCULAPFDAStart: 07-24-2019 ARASH S4 CVD 5.5X50MM AESCULAPFDAStart: 57-37-6753TCIQR S4 6X40MM MONO AESCULAPFDA Start: 61-66-1745XWMUR S4 6X40MM MONO AESCULAPFDAStart: 11-72-8039HIEPH S4 6X45MM POLY AESCULAPFDAStart: 09-14-2270IOWNR S4 6X45MM POLY AESCULAPFDAStart: 09-49-3674KITP 89A50HA 6DEG CAPSTONEFDAStart: 39-16-6305TMBNJ SET S4 AESCULAPFDA Start: 70-65-1209JEQLL SET S4 AESCULAPFDAStart: 85-40-6177LRUSO SET S4 AESCULAP FDAStart: 89-56-5770CRJKH SET S4 AESCULAPFDAStart: 16-82-1478DWDOQTTQXB COARSE 7.5CCFDAStart: 02-26-5414HWIFOE XX SMALL 0.7CCFDAStart: 06-15-4842EXV S4 CVD 5.5X45MM AESCULAPFDAStart: 22-25-0345UIB S4 CVD 5.5X50MM AESCULAPFDAStart: 83-18-9787ATYCB S4 6X40MM MONO AESCULAPFDAStart: 38-48-9055XAFIH S4 6X40MM MONO AESCULAPFDAStart: 99-10-6771ALEKW S4 6X45MM POLY AESCULAPFDAStart: 07-24-2019 SCREW S4 6X45MM POLY AESCULAPFDAStart: 52-23-8099FOMB 71F67PX 6DEG CAPSTONEFDA Start: 56-37-2128WULLH SET S4 AESCULAPFDAStart: 19-92-7173YPUID SET S4 AESCULAP FDAStart: 89-99-9820HIEEU SET S4 AESCULAPFDAStart: 31-28-1093LGVKW SET S4 AESCULAPFDAStart: 99-57-3209HSNADVWVLQ COARSE 7.5CCFDAStart: 87-13-5419PPKARJ XX SMALL 0.7CCFDAStart: 94-88-6801ZYR S4 CVD 5.5X45MM AESCULAPFDAStart: 07-24-2019 ARASH S4 CVD 5.5X50MM AESCULAPFDAStart: 18-97-1322ATEZN S4 6X40MM MONO AESCULAPFDA Start: 28-61-7817VDVVN S4 6X40MM MONO AESCULAPFDAStart: 46-55-2245MACAB S4 6X45MM POLY AESCULAPFDAStart: 74-77-1380KVIEK S4 6X45MM POLY AESCULAPFDAStart: 04-66-2477JFXB 12C97OA 6DEG CAPSTONEFDAStart: 25-72-6603SHUTW SET S4 AESCULAPFDA Start: 19-91-8566USZNJ SET S4 AESCULAPFDAStart: 23-22-1622DVOJU SET S4 AESCULAP FDAStart: 55-30-4190QZKMF SET S4 AESCULAPFDAStart: 37-91-0705XXVCSHBENE COARSE 7.5CCFDAStart: 95-43-2939GDCMCR XX SMALL 0.7CCFDAStart: 06-69-2338CNV S4 CVD 5.5X45MM AESCULAPFDAStart: 75-52-4917LIY S4 CVD 5.5X50MM AESCULAPFDAStart: 70-23-0648ZMYAN S4 6X40MM MONO AESCULAPFDAStart: 58-41-9403BPXSG S4 6X40MM MONO AESCULAPFDAStart: 59-05-4045VBGWP S4 6X45MM POLY AESCULAPFDAStart: 07-24-2019 SCREW S4 6X45MM POLY AESCULAPFDAStart: 81-41-9639GPKM 41P07OI 6DEG CAPSTONEFDA Start: 45-96-9265LWWDF SET S4 AESCULAPFDAStart: 67-00-8500IDBEL SET S4 AESCULAP FDAStart: 46-69-2995YRMTD SET S4 AESCULAPFDAStart: 08-79-6731WQUGK SET S4 AESCULAPFDAStart: 46-03-7461MLKWFJLYSD COARSE 7.5CCFDAStart: 92-42-0493ZTNNNS XX SMALL 0.7CCFDAStart: 29-47-1228GRB S4 CVD 5.5X45MM AESCULAPFDAStart: 07-24-2019 ARASH S4 CVD 5.5X50MM AESCULAPFDAStart: 36-92-6406MZINW S4 6X40MM MONO AESCULAPFDA Start: 57-15-7094IXKQA S4 6X40MM MONO AESCULAPFDAStart: 07-07-2114DKWXC S4 6X45MM POLY AESCULAPFDAStart: 24-86-7456KRVYX S4 6X45MM POLY AESCULAPFDAStart: 35-39-9455YPVX 85Q15DL 6DEG CAPSTONEFDAStart: 93-92-2950JVLKO SET S4 AESCULAPFDA Start: 38-77-7898SGYLY SET S4 AESCULAPFDAStart: 65-96-0051CLAME SET S4 AESCULAP FDAStart: 60-23-3667JTNVE SET S4 AESCULAPFDAStart: 64-37-0680XIBSGYZGWC COARSE 7.5CCFDAStart: 10-04-6220FOGAES XX SMALL 0.7CCFDAStart: 64-81-9918YID S4 CVD 5.5X45MM AESCULAPFDAStart: 21-21-2986EYK S4 CVD 5.5X50MM AESCULAPFDAStart: 21-29-6225FPMEA S4 6X40MM MONO AESCULAPFDAStart: 68-34-2543IVKHM S4 6X40MM MONO AESCULAPFDAStart: 11-85-3083WVUHI S4 6X45MM POLY AESCULAPFDAStart: 07-24-2019 SCREW S4 6X45MM POLY AESCULAPFDAStart: 13-05-6386FPHY 09B01SL 6DEG CAPSTONEFDA Start: 94-42-6747IIIFZ SET S4 AESCULAPFDAStart: 09-76-6543ROZBS SET S4 AESCULAP FDAStart: 74-38-9586KIHKL SET S4 AESCULAPFDAStart: 82-62-0114REGWE SET S4 AESCULAPFDAStart: 64-11-6185RDOVECKXIO COARSE 7.5CCFDAStart: 47-40-7851MHAKWW XX SMALL 0.7CCFDAStart: 32-50-5097RSH S4 CVD 5.5X45MM AESCULAPFDAStart: 07-24-2019 ARASH S4 CVD 5.5X50MM AESCULAPFDAStart: 90-03-1118MRVFL S4 6X40MM MONO AESCULAPFDA Start: 52-73-3258YBKZU S4 6X40MM MONO AESCULAPFDAStart: 23-91-8413PXUFN S4 6X45MM POLY AESCULAPFDAStart: 68-61-3072BRPTF S4 6X45MM POLY AESCULAPFDAStart: 94-64-8259KXEY 48W76SY 6DEG CAPSTONEFDAStart: 72-48-5957VNDPP SET S4 AESCULAPFDA Start: 41-20-0218SZEIJ SET S4 AESCULAPFDAStart: 49-90-9253BQPHQ SET S4 AESCULAP FDAStart: 54-43-7075YBQTL SET S4 AESCULAPFDAStart: 98-96-1129UGYQOQPXQT COARSE 7.5CCFDAStart: 50-41-6834DYAMGN XX SMALL 0.7CCFDAStart: 84-95-4031EVL S4 CVD 5.5X45MM AESCULAPFDAStart: 39-04-1812CCG S4 CVD 5.5X50MM AESCULAPFDAStart: 96-91-7175ZVWIC S4 6X40MM MONO AESCULAPFDAStart: 90-35-6106RFAWX S4 6X40MM MONO AESCULAPFDAStart: 48-20-0982JGFJV S4 6X45MM POLY AESCULAPFDAStart: 07-24-2019 SCREW S4 6X45MM POLY AESCULAPFDAStart: 76-26-8238FSMD 16Q47NH 6DEG CAPSTONEFDA Start: 22-94-3320LDXZW SET S4 AESCULAPFDAStart: 34-30-8812HAJQK SET S4 AESCULAP FDAStart: 02-80-4426EOXAQ SET S4 AESCULAPFDAStart: 41-23-5428PZISK SET S4 AESCULAPFDAStart: 83-81-4379OSXUTLGUPB COARSE 7.5CCFDAStart: 33-04-2353XHKXIU XX SMALL 0.7CCFDAStart: 40-21-0565SRF S4 CVD 5.5X45MM AESCULAPFDAStart: 07-24-2019 ARASH S4 CVD 5.5X50MM AESCULAPFDAStart: 52-34-7794OSHPI S4 6X40MM MONO AESCULAPFDA Start: 01-80-6679KMCDZ S4 6X40MM MONO AESCULAPFDAStart: 35-46-5862BNCGS S4 6X45MM POLY AESCULAPFDAStart: 00-69-0142SWUXN S4 6X45MM POLY AESCULAPFDAStart: 28-68-3542RCWQ 34P61WK 6DEG CAPSTONEFDAStart: 28-08-6815UTTXY SET S4 AESCULAPFDA Start: 88-44-3372DXJMC SET S4 AESCULAPFDAStart: 37-94-4938CDOPR SET S4 AESCULAP FDAStart: 73-89-2171VQEPK SET S4 AESCULAPFDAStart: 45-94-0023XSZBBUAHPZ COARSE 7.5CCFDAStart: 87-38-3629MWIZXT XX SMALL 0.7CCFDAStart: 50-24-4087LJN S4 CVD 5.5X45MM AESCULAPFDAStart: 99-40-2522NEK S4 CVD 5.5X50MM AESCULAPFDAStart: 45-33-5877QGROE S4 6X40MM MONO AESCULAPFDAStart: 20-49-9403LRDYK S4 6X40MM MONO AESCULAPFDAStart: 02-88-0159SJVGC S4 6X45MM POLY AESCULAPFDAStart: 07-24-2019 SCREW S4 6X45MM POLY AESCULAPFDAStart: 63-19-2232TPXV 35B60HK 6DEG CAPSTONEFDA Start: 00-11-3680ZXWLU SET S4 AESCULAPFDAStart: 29-77-9357GXJAN SET S4 AESCULAP FDAStart: 51-39-0924PHKBK SET S4 AESCULAPFDAStart: 54-45-1663KPYTH SET S4 AESCULAPFDAStart: 61-49-6413ANDXSIFDTP COARSE 7.5CCFDAStart: 84-46-0231CZWCTF XX SMALL 0.7CCFDAStart: 01-25-3072VIX S4 CVD 5.5X45MM AESCULAPFDAStart: 07-24-2019 ARASH S4 CVD 5.5X50MM AESCULAPFDAStart: 48-34-3702WFSCN S4 6X40MM MONO AESCULAPFDA Start: 53-80-4298XIXJH S4 6X40MM MONO AESCULAPFDAStart: 89-63-9196THWZV S4 6X45MM POLY AESCULAPFDAStart: 40-77-5619ULWZV S4 6X45MM POLY AESCULAPFDAStart: 92-34-6490IXPQ 26Y31FA 6DEG CAPSTONEFDAStart: 58-11-5355WSKRN SET S4 AESCULAPFDA Start: 50-58-9657KZEKS SET S4 AESCULAPFDAStart: 57-99-4325SFSLT SET S4 AESCULAP FDAStart: 60-83-0280FJGCN SET S4 AESCULAPFDAStart: 03-23-6889DRGMTWVSWK COARSE 7.5CCFDAStart: 78-96-1239RMCJOG XX SMALL 0.7CCFDAStart: 41-54-8649GXM S4 CVD 5.5X45MM AESCULAPFDAStart: 89-87-8261VMF S4 CVD 5.5X50MM AESCULAPFDAStart: 65-16-5980IRREC S4 6X40MM MONO AESCULAPFDAStart: 33-10-6750QFYVT S4 6X40MM MONO AESCULAPFDAStart: 32-62-9507IZPDB S4 6X45MM POLY AESCULAPFDAStart: 07-24-2019 SCREW S4 6X45MM POLY AESCULAPFDAStart: 16-97-5659CCDH 17L13XS 6DEG CAPSTONEFDA Start: 50-44-0962JUKGM SET S4 AESCULAPFDAStart: 94-48-5923BOXBH SET S4 AESCULAP FDAStart: 67-38-2975NCCQI SET S4 AESCULAPFDAStart: 85-10-6274KDZNF SET S4 AESCULAPFDAStart: 28-05-0415PKSLPMNLMD COARSE 7.5CCFDAStart: 67-63-2540CLUUFI XX SMALL 0.7CCFDAStart: 35-13-9008CCF S4 CVD 5.5X45MM AESCULAPFDAStart: 07-24-2019 ARASH S4 CVD 5.5X50MM AESCULAPFDAStart: 61-12-5499DLLOM S4 6X40MM MONO AESCULAPFDA Start: 28-92-1111OFWYB S4 6X40MM MONO AESCULAPFDAStart: 53-99-1570DYAZO S4 6X45MM POLY AESCULAPFDAStart: 61-06-2929ENAYK S4 6X45MM POLY AESCULAPFDAStart: 13-42-3596MEZJ 54T82EB 6DEG CAPSTONEFDAStart: 80-18-8951HTULP SET S4 AESCULAPFDA Start: 91-83-4442JGDUS SET S4 AESCULAPFDAStart: 24-44-0603YUVOZ SET S4 AESCULAP FDAStart: 18-54-5550DHUBL SET S4 AESCULAPFDAStart: 02-52-8452CBMLXOGYJD COARSE 7.5CCFDAStart: 54-25-1853JPMDOI XX SMALL 0.7CCFDAStart: 82-28-8190TKB S4 CVD 5.5X45MM AESCULAPFDAStart: 89-50-8959XHV S4 CVD 5.5X50MM AESCULAPFDAStart: 78-99-9500UVKCR S4 6X40MM MONO AESCULAPFDAStart: 85-82-1241PMNEB S4 6X40MM MONO AESCULAPFDAStart: 26-66-0529JJCPX S4 6X45MM POLY AESCULAPFDAStart: 07-24-2019 SCREW S4 6X45MM POLY AESCULAPFDAStart: 16-89-9924GVFK 59N41NT 6DEG CAPSTONEFDA Start: 03-08-6298WFDAI SET S4 AESCULAPFDAStart: 61-52-1554KAFBY SET S4 AESCULAP FDAStart: 99-86-0500HEDEL SET S4 AESCULAPFDAStart: 04-83-5970VJLJG SET S4 AESCULAPFDAStart: 34-28-3303IXJKHOJPLS COARSE 7.5CCFDAStart: 25-98-0161YQZIPF XX SMALL 0.7CCFDAStart: 05-94-8314HWP S4 CVD 5.5X45MM AESCULAPFDAStart: 07-24-2019 ARASH S4 CVD 5.5X50MM AESCULAPFDAStart: 34-73-7976LROJP S4 6X40MM MONO AESCULAPFDA Start: 44-23-3993ZNCGR S4 6X40MM MONO AESCULAPFDAStart: 31-61-9104MPUBL S4 6X45MM POLY AESCULAPFDAStart: 40-29-1771QMIBC S4 6X45MM POLY AESCULAPFDAStart: 49-41-4664837160810LJJF 74E09MK 6DEG CAPSTONEFDAStart: 46-72-0661JUALS SET S4 AESCULAPFDAStart: 63-73-8376WPOFH SET S4 AESCULAPFDAStart: 92-62-1736JTLEV SET S4 AESCULAPFDAStart: 56-26-1881RJCMI SET S4 AESCULAPFDAStart: 07-24-2019 CANCELLOUS COARSE 7.5CCFDAStart: 82-68-8866MESZTW XX SMALL 0.7CCFDAStart: 94-33-2614RFA S4 CVD 5.5X45MM AESCULAPFDAStart: 96-60-9701SFT S4 CVD 5.5X50MM AESCULAPFDAStart: 66-85-7286EWSOG S4 6X40MM MONO AESCULAPFDAStart: 07-24-2019 SCREW S4 6X40MM MONO AESCULAPFDAStart: 75-12-4067ARTOL S4 6X45MM POLY AESCULAP FDAStart: 49-03-9251LBOAL S4 6X45MM POLY AESCULAPFDAStart: 09-88-3437AKYA 54R16DK 6DEG CAPSTONEFDAStart: 85-91-3074SHPDV SET S4 AESCULAPFDAStart: 14-30-7754FAFJD SET S4 AESCULAPFDAStart: 37-18-4866BHZUP SET S4 AESCULAPFDA Start: 35-17-1723BPOQN SET S4 AESCULAPFDAStart: 32-97-1883BZNAZAEXIM COARSE 7.5CCFDAStart: 31-62-7566PLBBLR XX SMALL 0.7CCFDAStart: 36-88-2349JWA S4 CVD 5.5X45MM AESCULAPFDAStart: 04-67-9565NFX S4 CVD 5.5X50MM AESCULAPFDAStart: 54-68-1400THWVC S4 6X40MM MONO AESCULAPFDAStart: 99-43-5513LUDLE S4 6X40MM MONO AESCULAPFDAStart: 49-46-6853KAVQU S4 6X45MM POLY AESCULAPFDAStart: 07-24-2019 SCREW S4 6X45MM POLY AESCULAPFDAStart: 76-93-1623DVCG 84B02ND 6DEG CAPSTONEFDA Start: 26-23-0591ITCWN SET S4 AESCULAPFDAStart: 66-34-1105YXVUP SET S4 AESCULAP FDAStart: 00-52-4272YSXKP SET S4 AESCULAPFDAStart: 24-04-7786ZHBMQ SET S4 AESCULAPFDAStart: 21-35-9355FKVYBFWIVP COARSE 7.5CCFDAStart: 87-36-1014HEPWAJ XX SMALL 0.7CCFDAStart: 91-57-1287PDP S4 CVD 5.5X45MM AESCULAPFDAStart: 07-24-2019 ARASH S4 CVD 5.5X50MM AESCULAPFDAStart: 46-66-3339ZZHHT S4 6X40MM MONO AESCULAPFDA Start: 99-92-9176CVWOG S4 6X40MM MONO AESCULAPFDAStart: 09-13-7444MRMYW S4 6X45MM POLY AESCULAPFDAStart: 51-18-6401BSHPM S4 6X45MM POLY AESCULAPFDAStart: 83-79-5796YIJY 70Q77BK 6DEG CAPSTONEFDAStart: 70-69-6697WPPRM SET S4 AESCULAPFDA Start: 23-43-5868LJADN SET S4 AESCULAPFDAStart: 81-07-6978RPILH SET S4 AESCULAP FDAStart: 74-42-8192DBAPP SET S4 AESCULAPFDAStart: 05-87-9243YIAVIFZTIF COARSE 7.5CCFDAStart: 92-65-9973LWTRRO XX SMALL 0.7CCFDAStart: 45-22-0145VGQ S4 CVD 5.5X45MM AESCULAPFDAStart: 04-02-4417PTE S4 CVD 5.5X50MM AESCULAPFDAStart: 82-62-3107JITBZ S4 6X40MM MONO AESCULAPFDAStart: 82-54-0676MJBLW S4 6X40MM MONO AESCULAPFDAStart: 72-48-4383XUUHL S4 6X45MM POLY AESCULAPFDAStart: 07-24-2019 SCREW S4 6X45MM POLY AESCULAPFDAStart: 58-59-5896TKFT 01A85CN 6DEG CAPSTONEFDA Start: 52-83-0489EWEJA SET S4 AESCULAPFDAStart: 22-81-4930QPRZL SET S4 AESCULAP FDAStart: 66-14-0483YRAAL SET S4 AESCULAPFDAStart: 43-29-8407KPUDC SET S4 AESCULAPFDAStart: 52-42-7174YUQJGIRHQA COARSE 7.5CCFDAStart: 63-11-1536OOEBPV XX SMALL 0.7CCFDAStart: 43-02-8541QCL S4 CVD 5.5X45MM AESCULAPFDAStart: 07-24-2019 ARASH S4 CVD 5.5X50MM AESCULAPFDAStart: 10-56-9344PPQGR S4 6X40MM MONO AESCULAPFDA Start: 29-57-0025JWYUN S4 6X40MM MONO AESCULAPFDAStart: 61-43-5878NYGLV S4 6X45MM POLY AESCULAPFDAStart: 90-78-6330VTQVM S4 6X45MM POLY AESCULAPFDAStart: 12-51-5162XOOU 25L41AC 6DEG CAPSTONEFDAStart: 44-93-1030ALHNX SET S4 AESCULAPFDA Start: 83-20-8522FUOTN SET S4 AESCULAPFDAStart: 68-01-9749EIHYP SET S4 AESCULAP FDAStart: 25-87-4666KZQRO SET S4 AESCULAPFDAStart: 02-12-4170UTIXUOZNMR COARSE 7.5CCFDAStart: 23-72-9394EYHJTD XX SMALL 0.7CCFDAStart: 90-46-2023IFC S4 CVD 5.5X45MM AESCULAPFDAStart: 31-36-2733RDO S4 CVD 5.5X50MM AESCULAPFDAStart: 84-43-5865AAWLR S4 6X40MM MONO AESCULAPFDAStart: 21-37-1193FHIJS S4 6X40MM MONO AESCULAPFDAStart: 27-75-3971WLDXH S4 6X45MM POLY AESCULAPFDAStart: 07-24-2019 SCREW S4 6X45MM POLY AESCULAPFDAStart: 32-85-1355IBUN 23E26DZ 6DEG CAPSTONEFDA Start: 60-01-8011GQOIN SET S4 AESCULAPFDAStart: 40-90-5608BMSWL SET S4 AESCULAP FDAStart: 12-02-1223AMIZG SET S4 AESCULAPFDAStart: 32-00-9378MORRZ SET S4 AESCULAPFDAStart: 91-30-5401KBQEVGWAVM COARSE 7.5CCFDAStart: 27-16-0150FIUTCT XX SMALL 0.7CCFDAStart: 11-71-7339SJD S4 CVD 5.5X45MM AESCULAPFDAStart: 07-24-2019 ARASH S4 CVD 5.5X50MM AESCULAPFDAStart: 06-73-1064GQGKI S4 6X40MM MONO AESCULAPFDA Start: 37-33-8817DKAVX S4 6X40MM MONO AESCULAPFDAStart: 08-84-8877EFRPN S4 6X45MM POLY AESCULAPFDAStart: 87-21-7850HPLTF S4 6X45MM POLY AESCULAPFDAStart: 81-55-9834UUBS 86D83XP 6DEG CAPSTONEFDAStart: 27-85-2708HJBIY SET S4 AESCULAPFDA Start: 57-41-4594RNTDV SET S4 AESCULAPFDAStart: 90-61-0761HBEWW SET S4 AESCULAP FDAStart: 61-02-2749MKPSK SET S4 AESCULAPFDAStart: 58-01-1105CRNIXZBPNT COARSE 7.5CCFDAStart: 30-95-8732WJOIKE XX SMALL 0.7CCFDAStart: 83-61-9069XSW S4 CVD 5.5X45MM AESCULAPFDAStart: 49-79-5655UQE S4 CVD 5.5X50MM AESCULAPFDAStart: 43-05-4643QNSOT S4 6X40MM MONO AESCULAPFDAStart: 41-39-0821DTADW S4 6X40MM MONO AESCULAPFDAStart: 93-54-7969GRFPB S4 6X45MM POLY AESCULAPFDAStart: 07-24-2019 SCREW S4 6X45MM POLY AESCULAPFDAStart: 27-40-7381EZDQ 96I99OR 6DEG CAPSTONEFDA Start: 24-85-6424DMYFX SET S4 AESCULAPFDAStart: 51-85-1422CSDQD SET S4 AESCULAP FDAStart: 03-22-1072HECFA SET S4 AESCULAPFDAStart: 58-05-3594SDQJR SET S4 AESCULAPFDAStart: 58-22-8147LRXIIZRNVO COARSE 7.5CCFDAStart: 80-29-9197HOVNPE XX SMALL 0.7CCFDAStart: 99-63-8073XYU S4 CVD 5.5X45MM AESCULAPFDAStart: 07-24-2019 ARASH S4 CVD 5.5X50MM AESCULAPFDAStart: 41-02-0442TKZVE S4 6X40MM MONO AESCULAPFDA Start: 42-69-9317NTBZI S4 6X40MM MONO AESCULAPFDAStart: 90-88-9516SKCYV S4 6X45MM POLY AESCULAPFDAStart: 00-60-7178HPQAL S4 6X45MM POLY AESCULAPFDAStart: 12-44-0338BTAS 29O81PQ 6DEG CAPSTONEFDAStart: 72-69-9303IUZTL SET S4 AESCULAPFDA Start: 70-09-0449JIZUT SET S4 AESCULAPFDAStart: 28-85-5336RZCNS SET S4 AESCULAP FDAStart: 13-62-9599TXKJH SET S4 AESCULAPFDAStart: 76-32-7798SCVBHVJTHV COARSE 7.5CCFDAStart: 33-97-1302GUKYRU XX SMALL 0.7CCFDAStart: 63-02-7684FJD S4 CVD 5.5X45MM AESCULAPFDAStart: 36-94-9495KIE S4 CVD 5.5X50MM AESCULAPFDAStart: 55-90-6276FMLTR S4 6X40MM MONO AESCULAPFDAStart: 10-89-6064DZEGY S4 6X40MM MONO AESCULAPFDAStart: 38-69-8102PLXGC S4 6X45MM POLY AESCULAPFDAStart: 07-24-2019 SCREW S4 6X45MM POLY AESCULAPFDAStart: 12-60-3908PUWA 22N54YW 6DEG CAPSTONEFDA Start: 50-51-6653GUBIY SET S4 AESCULAPFDAStart: 04-24-0857QURVY SET S4 AESCULAP FDAStart: 00-94-5715BCUUN SET S4 AESCULAPFDAStart: 21-65-3366RFJPM SET S4 AESCULAPFDAStart: 56-10-7888AJYPCHDUFH COARSE 7.5CCFDAStart: 88-60-9352ZDDDJA XX SMALL 0.7CCFDAStart: 11-19-2214LBL S4 CVD 5.5X45MM AESCULAPFDAStart: 07-24-2019 ARASH S4 CVD 5.5X50MM AESCULAPFDAStart: 87-12-8813JDRXB S4 6X40MM MONO AESCULAPFDA Start: 28-23-2676NJCNT S4 6X40MM MONO AESCULAPFDAStart: 51-01-4312JMSSQ S4 6X45MM POLY AESCULAPFDAStart: 25-32-7907NXVFC S4 6X45MM POLY AESCULAPFDAStart: 02-16-7550DUXK 81L64GN 6DEG CAPSTONEFDAStart: 21-34-8954MLMEK SET S4 AESCULAPFDA Start: 61-21-5286RBPQC SET S4 AESCULAPFDAStart: 45-96-1719GWZEN SET S4 AESCULAP FDAStart: 38-57-6592JWKJR SET S4 AESCULAPFDAStart: 27-84-7156CYNLPNVYDG COARSE 7.5CCFDAStart: 93-12-5117CZKHFT XX SMALL 0.7CCFDAStart: 25-40-1215GOS S4 CVD 5.5X45MM AESCULAPFDAStart: 97-85-5623RUY S4 CVD 5.5X50MM AESCULAPFDAStart: 21-36-6390IFYEQ S4 6X40MM MONO AESCULAPFDAStart: 78-77-5725HBRDW S4 6X40MM MONO AESCULAPFDAStart: 34-40-6989VLPPA S4 6X45MM POLY AESCULAPFDAStart: 07-24-2019 SCREW S4 6X45MM POLY AESCULAPFDAStart: 20-42-7203RLKL 29E34CK 6DEG CAPSTONEFDA Start: 97-15-1859JQREQ SET S4 AESCULAPFDAStart: 35-44-7924FYNCI SET S4 AESCULAP FDAStart: 41-18-2266OXTNL SET S4 AESCULAPFDAStart: 07-61-5859GJXGQ SET S4 AESCULAPFDAStart: 37-37-2231SFTMZWCNSQ COARSE 7.5CCFDAStart: 54-31-2215LZVVOY XX SMALL 0.7CCFDAStart: 74-96-6897SAH S4 CVD 5.5X45MM AESCULAPFDAStart: 07-24-2019 ARASH S4 CVD 5.5X50MM AESCULAPFDAStart: 24-15-8341JIQPQ S4 6X40MM MONO AESCULAPFDA Start: 56-02-5970TOKRX S4 6X40MM MONO AESCULAPFDAStart: 47-75-3159CFUMP S4 6X45MM POLY AESCULAPFDAStart: 70-57-1316XLMZJ S4 6X45MM POLY AESCULAPFDAStart: 09-94-3352MFPB 52I26SP 6DEG CAPSTONEFDAStart: 82-84-7902GWSFP SET S4 AESCULAPFDA Start: 27-46-7529BGVFO SET S4 AESCULAPFDAStart: 33-90-5435LEAPD SET S4 AESCULAP FDAStart: 34-37-1519HYBNV SET S4 AESCULAPFDAStart: 39-81-0358SDSRNIJZVP COARSE 7.5CCFDAStart: 58-47-0981YQKFXP XX SMALL 0.7CCFDAStart: 97-74-4544GIK S4 CVD 5.5X45MM AESCULAPFDAStart: 54-39-0363LFN S4 CVD 5.5X50MM AESCULAPFDAStart: 25-53-2265VESAS S4 6X40MM MONO AESCULAPFDAStart: 84-75-7316MZPQJ S4 6X40MM MONO AESCULAPFDAStart: 85-60-0441TBURE S4 6X45MM POLY AESCULAPFDAStart: 07-24-2019 SCREW S4 6X45MM POLY AESCULAPFDAStart: 53-19-6761HOWH 82Q05TP 6DEG CAPSTONEFDA Start: 17-24-8571KCVAA SET S4 AESCULAPFDAStart: 05-55-4745WCSKK SET S4 AESCULAP FDAStart: 13-36-3360IFJCC SET S4 AESCULAPFDAStart: 56-07-4601EJIHC SET S4 AESCULAPFDAStart: 00-52-4303RUUZXFBOQQ COARSE 7.5CCFDAStart: 07-21-1062RUICQN XX SMALL 0.7CCFDAStart: 49-33-4761UOA S4 CVD 5.5X45MM AESCULAPFDAStart: 07-24-2019 ARASH S4 CVD 5.5X50MM AESCULAPFDAStart: 50-28-7986MDZRR S4 6X40MM MONO AESCULAPFDA Start: 07-67-5960FZADU S4 6X40MM MONO AESCULAPFDAStart: 28-47-7473TIMYO S4 6X45MM POLY AESCULAPFDAStart: 69-06-0643KJEFP S4 6X45MM POLY AESCULAPFDAStart: 41-27-6136NLRU 86D08LZ 6DEG CAPSTONEFDAStart: 23-28-7188NXPOE SET S4 AESCULAPFDA Start: 00-11-0741PXYPJ SET S4 AESCULAPFDAStart: 85-59-0700RFAKQ SET S4 AESCULAP FDAStart: 57-96-9856BXKRZ SET S4 AESCULAPFDAStart: 32-83-2104CHVHAQUFCG COARSE 7.5CCFDAStart: 72-98-7830AGDPFT XX SMALL 0.7CCFDAStart: 55-97-1371LQD S4 CVD 5.5X45MM AESCULAPFDAStart: 16-68-6294TWA S4 CVD 5.5X50MM AESCULAPFDAStart: 30-45-7182CDZMF S4 6X40MM MONO AESCULAPFDAStart: 80-24-1301QMJRC S4 6X40MM MONO AESCULAPFDAStart: 22-70-3675FWRXH S4 6X45MM POLY AESCULAPFDAStart: 07-24-2019 SCREW S4 6X45MM POLY AESCULAPFDAStart: 49-29-7314FMXP 72A39NQ 6DEG CAPSTONEFDA Start: 54-61-9401GPFBL SET S4 AESCULAPFDAStart: 44-87-3776BWOBK SET S4 AESCULAP FDAStart: 09-99-9789KTPBL SET S4 AESCULAPFDAStart: 03-65-3607QWJCU SET S4 AESCULAPFDAStart: 34-38-3212KZDPYYOGFE COARSE 7.5CCFDAStart: 07-53-6520RNPHXZ XX SMALL 0.7CCFDAStart: 29-36-7395SXK S4 CVD 5.5X45MM AESCULAPFDAStart: 07-24-2019 ARASH S4 CVD 5.5X50MM AESCULAPFDAStart: 48-75-3625PNVBU S4 6X40MM MONO AESCULAPFDA Start: 26-62-9782FISGT S4 6X40MM MONO AESCULAPFDAStart: 71-99-6224IMOEY S4 6X45MM POLY AESCULAPFDAStart: 49-42-0098POXUO S4 6X45MM POLY AESCULAPFDAStart: 86-33-1122ZZFR 96Q27KG 6DEG CAPSTONEFDAStart: 28-00-1639ULEMX SET S4 AESCULAPFDA Start: 12-31-4340IFASW SET S4 AESCULAPFDAStart: 49-23-9069HZMOR SET S4 AESCULAP FDAStart: 02-92-9870ZXUUJ SET S4 AESCULAPFDAStart: 06-60-2232LIZJGWYTCY COARSE 7.5CCFDAStart: 74-36-9109OHHVMP XX SMALL 0.7CCFDAStart: 64-32-7501VXT S4 CVD 5.5X45MM AESCULAPFDAStart: 70-03-1889BWO S4 CVD 5.5X50MM AESCULAPFDAStart: 42-18-2405BICOC S4 6X40MM MONO AESCULAPFDAStart: 48-99-5966XHNGO S4 6X40MM MONO AESCULAPFDAStart: 10-49-5242JJVSS S4 6X45MM POLY AESCULAPFDAStart: 07-24-2019 SCREW S4 6X45MM POLY AESCULAPFDAStart: 12-23-7507MOEB 72I10EM 6DEG CAPSTONEFDA Start: 83-50-7846TWPHI SET S4 AESCULAPFDAStart: 78-46-3042MDAFW SET S4 AESCULAP FDAStart: 12-60-6526OSGOO SET S4 AESCULAPFDAStart: 83-51-3898OMFMX SET S4 AESCULAPFDAStart: 00-23-0517WRMQNKKITM COARSE 7.5CCFDAStart: 42-76-6407WEPEPS XX SMALL 0.7CCFDAStart: 15-26-9392JAW S4 CVD 5.5X45MM AESCULAPFDAStart: 07-24-2019 ARASH S4 CVD 5.5X50MM AESCULAPFDAStart: 06-54-8223FIFXH S4 6X40MM MONO AESCULAPFDA Start: 60-69-4144TISWE S4 6X40MM MONO AESCULAPFDAStart: 58-65-9208IDLZR S4 6X45MM POLY AESCULAPFDAStart: 71-06-4842RDRZC S4 6X45MM POLY AESCULAPFDAStart: 29-70-7360WGYQ 63T49GI 6DEG CAPSTONEFDAStart: 66-00-8033UIRIE SET S4 AESCULAPFDA Start: 20-00-7461SHDAY SET S4 AESCULAPFDAStart: 07-63-8185UOBGA SET S4 AESCULAP FDAStart: 53-20-8883QKBZG SET S4 AESCULAPFDAStart: 95-98-7281IMKBZMCXLF COARSE 7.5CCFDAStart: 92-41-4656CXBJLH XX SMALL 0.7CCFDAStart: 46-72-5011HUF S4 CVD 5.5X45MM AESCULAPFDAStart: 69-62-0640CEA S4 CVD 5.5X50MM AESCULAPFDAStart: 88-85-7836WLFCR S4 6X40MM MONO AESCULAPFDAStart: 52-82-6404VWCAC S4 6X40MM MONO AESCULAPFDAStart: 09-73-3194BQRDI S4 6X45MM POLY AESCULAPFDAStart: 07-24-2019 SCREW S4 6X45MM POLY AESCULAPFDAStart: 56-26-8193JAZM 03Q76DQ 6DEG CAPSTONEFDA Start: 81-87-8614NJCDX SET S4 AESCULAPFDAStart: 75-05-1840RFOYA SET S4 AESCULAP FDAStart: 00-36-3568VLDUE SET S4 AESCULAPFDAStart: 94-83-7170BNLIX SET S4 AESCULAPFDAStart: 53-48-8883RMUBLAZBWV COARSE 7.5CCFDAStart: 04-57-4396SQHLBP XX SMALL 0.7CCFDAStart: 06-35-9453EQU S4 CVD 5.5X45MM AESCULAPFDAStart: 07-24-2019 ARASH S4 CVD 5.5X50MM AESCULAPFDAStart: 89-95-0521ZTASK S4 6X40MM MONO AESCULAPFDA Start: 61-63-4343DZHMR S4 6X40MM MONO AESCULAPFDAStart: 38-35-5027IISIB S4 6X45MM POLY AESCULAPFDAStart: 84-50-4138JLSIH S4 6X45MM POLY AESCULAPFDAStart: 07-24-2019 Goals DatePatient GoalDesired Activity/State Functional Status BjtuZtlxdexbubJacxqhGwruzaou20-95-4785Tjailblhkc statusPatient at Baseline [facility] Work Phone: [phone] 361-347203-368048-76-9325Scqtyeacuc statusPatient at Baseline [facility] Work Phone: 1(852) 476-469810-546835-37-2036Xxlgzmnsci StatusN/A[facility]25-2024Functional StatusN/A[facility]24Functional StatusN/A [facility]02-28-2024Functional StatusN/[facility] Functional StatusN/[facility] Mental Status ImbfTvbnzulthcApfkieVohxoame73-74-3464Rgsusciey functionCognitive Status [facility] Work Phone: 1(762) 106-194703-307288-25-1906Leneavabe functionCognitive Status [facility] Work Phone: Clinical Notes 04-09-2022 to 08-13-2025 Note Date & RdnzHcrhBxnlujwx19-73-9667 Hospital Discharge instructions Patient Education 08/13/2025 08:45:30 [...] urethra. Follow these instructions at home: Take pcfg-kqu-tlrlevq and prescription medicines only as told by [...] provider. Document Revised: 05/26/2022 Document Reviewed: 05/26/2022 [employer] Patient Education 2023 [employer]. 08/13/2025 08:45:29 Acute Urinary Retention, Male Acute Urinary Retention, Male Acute urinary retention is a condition in which a person is unable to pass urine or can only pass alittle urine. This condition can happen suddenly and [...] As men age, their prostate may become largerand may start to press or squeeze on the bladder or the urethra. Other chronic health conditions can increase the risk of acute urinary retention. These include: Diseases such as multiple sclerosis. Spinal cord injuries. Diabetes. Degenerative cognitive conditions, such as delirium or dementia. Psychological conditions. A man may hold his urine due to trauma or because he does not want to usethe bathroom. What are the signs or symptoms? [...] Follow these instructions at home: Medicines Take rali-heg-omczvcv and prescription medicines only as told by your health care provider. Avoid certain medicines, such as decongestants, antihistamines, and some prescription medicines. Do not take any medicine unless your health care provider approves. If you were prescribed an antibiotic medicine, take it as told by your health care provider. Do notstop using the antibiotic even if you start to feel better. General instructions Do not use any products that contain nicotine or tobacco. These products include cigarettes, chewing tobacco, and vaping devices, such as e-cigarettes. If you need help quitting, ask your health careprovider. Drink enough fluid to keep your urine [...] to pass urine or can only pass alittle urine. If left untreated, this condition can [...] provider. Document Revised: 07/29/2021 Document Reviewed: 07/29/2021 [employer] Patient Education 2023 [employer]. Follow Up Care 08/12/2025 13:43:56 With:FLAVIO ONEAL, Zac De Oliveira, URL Address: [address] [place] [address] [place] [address]- When: Unknown Comments:TURP [facility] 09-23-2025 NotePatient Education Urology Benign Prostatic Hyperplasia Benign prostatic [...] this procedure, a tool is inserted through theopening at the tip of the penis (urethra). [...] procedure uses radio frequencies to destroy and removea small amount of prostate tissue. ? Interstitial laser coagulation (ILC). This procedure uses a laser to destroy and remove a small amount of prostate tissue. ? Transurethral electrovaporization (TUVP). This procedure uses electrodes to destroy and remove a small amount of prostate tissue. ? Prostatic urethral lift. This procedure inserts an implant to push the lobes of the prostate awayfrom the urethra. Follow these instructions at home: ??? Take ijqn-aqh-tfhswzj and prescription medicines only as told by [...] symptoms do not get (more content not included)...[facility]08-27-2025 History of Present illness Narrative* Shabnam Connell NP - 07/17/2025 2:00 PM EDT Images from the original note [...] ankle and su at times, R > L. Comes up [...] definite diagnosis was found. -was seen in [facility] after second episode -1st occurred while sitting, [...] Take by mouth Allergies Allergen Reactions Aspirin Buf(Zxtcpg-Fdykqv-Uow) Other Reaction(s): Other (See Comments), Unknown Abdominal [...] Depression: Not at risk (06/11/2025) Received from mobile mum PHQ-2 Total Score: 0 REVIEW OF SYMPTOMS: [...] Teja's absent. Ankle clonus absent. Coordination Right: Gvcbeh-vx-lmjk normal. Rapid alternating movement normal.Left: Mtiacw-cx-xwrm normal. Rapid alternating movement normal. Slight intention [...] exam with changes in vibratory sense in thedistal LE bilaterally. He gets an occasional tingling [...] muscle tension type headaches. He does not reallycomplain of migrainous type symptoms. He does have [...] unspecified site, unspecified whether rheumatoid factor present ([facility]) - Sedimentation rate, automated; Future - C-reactive [...] between the above mentioned possible etiologies for thepatient's symptoms and explain the findings on neurological exam. This EMG/NCS study will help determine the severity of this process, determine if the process is axon loss or demyelinating in type, determine the presence of active axon loss, and help with proper localization of this process. Recommend he not drive for now HST ordered through [place] I counseled the patient on fall precautions. I discussed the high risk of trauma and debility associated with falls. Patient verbalized understanding. I will see the patient back after testing, or sooner if needed, to make further recommendations Greater that 50 minutes spent in chart review and counseling as well as development of plan of carewith the patient and his documented in this encounterDo[facility] of [id number] History of Present illness Narrative* Kali Conklin DPM - 06/27/2025 11:50 AM EDT Patient: Valentin Torre : 1955 [...] rheumatoid arthritis. Allergies: Allergies Allergen Reactions Aspirin Buf(Dergim-Wjcifn-Lra) Other Reaction(s): Other (See Comments), Unknown Abdominal [...] Resource Strain: Low Risk (04/14/2023) Received from mobile mum Overall Financial Resource Strain (CARDIA) Difficulty of Paying Living Expenses: Not hard at all Food Insecurity: No Food Insecurity (06/11/2025) Received from mobile mum Hunger Screening Within the past 12 months we worried whether our food would run out before we got money to buy more.: Never True Within the past 12 months the food we bought just didn't last and we didn't have money to get more.: Never True Transportation Needs: No Transportation Needs (04/14/2023) Received from mobile mum PRAPARE - Transportation Lack of Transportation (Medical): No Lack of Transportation (Non-Medical): No Physical Activity: Inactive (05/07/2025) Received from mobile mum Exercise Vital Sign Days of Exercise per Week: 0 days Minutes of Exercise per Session: 0 min Stress: No Stress Concern Present (04/14/2023) Received from [facility] [place] of Occupational Health - Occupational Stress Questionnaire Feeling of Stress : Not at all Social Connections: Moderately Integrated (04/14/2023) Received from [facility] Social Connection and Isolation Panel [NHANES] Frequency of Communication with Friends and Family: Once a week Frequency of Social Gatherings with Friends and Family: Once a week Attends Holiness Services: More than 4 times per year Active Member of Clubs or Organizations: Yes Attends Club or Organization Meetings: Never Marital Status: Intimate Partner Violence: Not on file Housing Stability: Low Risk (04/14/2023) Received from [facility] Housing Instability Are you worried [...] longer than right leg of a proximally cmv-bjbllvn-affa diminished pain on palpation of right lateral anterior su along tibial crest and extends along the EDL tendon complex to dorsum of his foot with pain with resisted dorsiflexion of foot and ankle onthe right ASSESSMENT 1. Pain due to onychomycosis [...] orthotics Kali Conklin DPM documented in this encounterDoctors Hospital of [id number] History of Present illness Narrative* Alfonso Trujillo, DO - 06/20/2025 9:20 AM EDT Chief Complaint Patient presents with New Patient Visit Patient here to establish care, recently in [facility] ER 06.07.25 for syncope. Subjective Valentin Torre is a 70 y.o. male 70-year-old gentleman seen in cardiology consultation at request of family practitioner for 2 episodes of syncope this past May. First episode he did not seek out medical advice, second episode he went to a [facility] emergency room, details of which are unavailable [...] undifferentiated connective tissue disease, prostatic hypertrophy currently ontamsulosin and seeking to undergo TURP shortly. Today's [...] 3 months for assessment with nurse practitioner COURTNEY Vitals: 06/20/25 0937 06/20/25 0938 BP: 126/76 [...] the direction and in the presence of [place] Trujillo DO. Provider Attestation - Scribe documentation All medical record entries made by the Scribe were at my direction and personally dictated by me. Ihave reviewed the chart and agree that the record accurately reflects my personal performance of the history, physical exam, discussion and plan. documented in this [facility] Work Phone: 1(235) 730-791407-31-2025 Instructions* Patient Instructions* Bonnie Schneider LPN - 06/20/2025 9:20 AM [...] instructions on dietary changes. POC pending testing * Attachments The following attachments cannot be sent through Care Everywhere. * Heart Healthy Diet (Portuguese) documented in this [facility] Work Phone: 1(585) 382-783207-23-2025 Hospital Discharge instructions Patient Education 06/12/2025 07:51:46 [...] Follow these instructions at home: Medicines Take ipyr-byq-pgaqjfr and prescription medicines only as told by [...] to keep your urine pale yellow. Take uaak-nnj-mjazbof or prescription medicines. Eat foods that are [...] you need help quitting, ask your health careprovider. If you go home with a tube draining your urine (urinary catheter), care for the catheter as told byyour health care provider. Wear compression stockings as [...] provider. Document Revised: 08/03/2022 Document Reviewed: 08/03/2022 [employer] Patient Education 2023 [employer]. 06/12/2025 07:51:45 Transurethral Resection of the Prostate [...] light, a camera, and an electric cutting edge(resectoscope) is passed through the urethra and into the prostate. The opening of the urethra is at the end of the penis. Tell a health care provider about: Any allergies you have. All medicines you are taking, including vitamins, herbs, eye drops, creams, and nsvy-twt-rezgljx medicines. Any problems you or family members [...] provider tells you to take them. Taking bkew-zac-coqixan medicines, vitamins, herbs, and supplements. Surgery safety [...] until youleave the hospital or clinic. You will be [...] provider. Document Revised: 08/03/2022 Document Reviewed: 08/03/2022 [employer] Patient Education 2023 [employer]. Follow Up Care 05/14/2025 13:50:07 With:FLAVIO ONEAL, Zac De Oliveira, URL Address: [facility] [address], [place] [address] [phone] When: Unknown [facility] Mg 07-23-2025 NotePatient Education Urology Transurethral Resection of the Prostate, [...] you urinate. This is from having the catheterinserted during the procedure. ??? A sudden urge to urinate (urgency). ??? A need to urinate often. ??? A small amount of blood in your urine. You may notice some small blood clots in your urine. These are normal. Follow these instructions at home: Medicines ??? Take jrws-yjs-eecmoxw and prescription medicines only as told by your health care provider. ??? If you were prescribed an antibiotic medicine, take it as told by your health care provider. Donot stop taking the antibiotic even if you start to feel better. Activity ??? Rest as told by your health care provider. ??? Avoid sitting for a long time without moving. Get up to take short walks every 1?2 hours. This is important to improve blood flow and breathing. Ask for help if you feel weak or unsteady. You mayincrease your physical activity gradually as you start [...] or the limit that you are told, untilyour health care provider says that it is [...] keep your urine pale yellow. ??? Take ninp-bdd-ixsxyrz or prescription medicines. ??? Eat foods that are high in fiber, such as beans, whole grains, and fresh fruits and vegetables. ??? Limit foods that are high in fat and processed sugars, such as fried or sweet foods. General instructions ??? Do not strain when you have a bowel movement. Straining may lead to bleeding from the prostate.This may cause blood clots and trouble urinating. [...] as told by your health care provider. Askwhat activities are safe for you. ??? Keep all follow-up visits. This is important. This information is not intended to replace advice given to you by your health care provider. Make sure you discuss any questions you have with your health care provider. Document Revised: 08/03/2022 D (more content not included)...[facility]07-22-2025 History of Present illness Narrative* Myra Orlando, MARCOS-SENIOR TEST ANALYST - 06/11/2025 2:00 PM EDT IM PROGRESS NOTE Patient - Valentin Torre Age - 70 [facility]. [facility] 1955 [id number]ESS[facility] & PLAN 1. Hospital discharge follow-up (Primary) ER -advised patient to follow up with Cardiology -advised patient to follow up with Neurology 2. Syncope, unspecified syncope type -recommended 30 day event monitor -patient to call gi technician to get that ordered since the cardiologists are not in the pro Medic[facility] who they see -orthostatic blood pressure negative -reviewed ER visit including radiology testing, labs, and assessment. Subjective The following portions of the patient's history were reviewed and updated as appropriate: allergies, current medications, past family history, past medical history, past social history, past surgicalhistory and problem list. Patient is here for follow-up from emergency room visit in which he went after having a fainting episode in the car. states patient was sitting in passenger seat of the car and all of a sudden slumped forward. He was difficult to awakened but eventually she was able to shake him enough that hewoke up. states this is the 2nd time this has happened. Patient does not really remember the episode. Patient does already see cardiology and Neurology and were advised by the emergency department to follow up with both of those specialists to determine a further course of care. He has not hadany fainting episodes since the emergency department visit. [...] at noon and 2 tablets (1,000 mg total)as needed in the evening for pain., Disp: , Rfl: aspirin 81 mg, Take 1 tablet (81 mg total) by mouth in the morning., Disp: , Rfl: budesonide (RINOCORT AQUA) 32 mcg/actuation nasal spray, 62,500 sprays., Disp: , Rfl: budesonide-formoteroL (SYMBICORT) 80-4.5 mcg/actuation inhaler, Inhale 2 puffs in the morning and 2puffs before bedtime., Disp: 10.2 g, Rfl: 5 [...] for Next scheduled follow up. [employer] Physicians Office: [phone] This note is dictated with the use of M*Modal. Please note that this dictation was completed with computer voice recognition software. Quite often unanticipated grammatical, syntax, homophones, and other interpretive errors are inadvertently transcribed by the computer software. Please disregard these errors. Please excuse any errors that have escaped final proofreading. DOMINGO Hyatt 06/11/25 1451 documented in this encounterTr[facility]07-[facility] Telephone encounter Note* Telephone Encounter - Kali Conklin DPM - 06/03/2025 10:35 AM EDT Patient to call back if no improvement with steroid pack for appt. [id number] Miscellaneous Notes* Telephone Encounter - Kali Conklin DPM - 06/03/2025 10:35 AM EDT Patient to call back if no improvement with steroid pack for appt. documented in this encounterDoctors Hospital of [id number] History of Present illness Narrative* Sascha Teagan Herman, - 05/28/2025 2:45 PM EDT Subjective Patient ID: Valentin Torre is a 70 y.o. male. Valentin presents to discuss his PFT's. 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 Hegets short of breath [...] and prescribed diet education. documented in this encounterTr[facility]ull [facility]06-25-2025 History of Present illness Narrative* Shabnam Connell NP - 05/15/2025 10:30 AM EDT Images from the original note [...] Take by mouth Allergies Allergen Reactions Aspirin Buf(Doknbt-Culizn-Evx) Other Reaction(s): Other (See Comments), Unknown Abdominal [...] Depression: Not at risk (05/07/2025) Received from mobile mum PHQ-2 Total Score: 0 REVIEW OF SYMPTOMS: [...] tremors and light-headedness. Negative for dizziness, weakness, numbnessand headaches. Psychiatric/Behavioral: Negative for agitation, confusion and [...] Teja's absent. Ankle clonus absent. Coordination Right: Ozqzcm-rn-rboc normal. Rapid alternating movement normal.Left: Xguxak-yg-ivqp normal. Rapid alternating movement normal. Slight intention [...] mg) before bedtime. Polyneuropathy documented in this encounterDoctors Hospital of [id number] History of Present illness Narrative* Sascha Sutton, - 05/07/2025 9:40 AM EDT Subjective SUBJECTIVE: Patient ID: Valentin [...] Do you have a durable power of kitman?: Yes Cognitive Screening Do you have trouble [...] 1 year (around 05/07/2026). documented in this encounterTrumbull [facility] Hospital06-11-2025 Procedure note [facility] [place] [address] Pulmonary Function Signed Patient: Valentin Torre MR#: [id number] : 1955 Date of Service:0 05/01/25 Age/Sex: 70 / M ADM Date: 5 Loc: RT Room: Type: [facility] Attending Dr: Christine DAUGHERTY Copies to: MD Sascha Ruiz DO Jodi L Obermeyer, NP-C~ Pulmonary Function Test Complete pulmonary function studies were performed on May 01, 2025 for patient with diagnosis of dyspnea. Spirometry was acceptable and reproducible with adequate durations of exhalation. Please refer to the pulmonary function test report for the raw data. SPIROMETRY: Spirometry was performed with bronchodilator studies and reveals an FEV1 to FVC ratio of 71% with an FEV1 of 2.59 liters (84% predicted) and a forced vital capacity of 3.64 liters (87% predicted). After administration of bronchodilators there was a significant 13% improvement in the FEV1 and a significant 33% improvement in the mid and terminal expiratory flows. LUNG VOLUMES: Measurement of static lung volumes was performed by plethysmography and indicates a total lung capacity of 6.86 liters (102% predicted) with a residual volume which was 127% of predicted and a residual volume to total lung capacity ratio of 47%. DIFFUSION CAPACITY: Single breath diffusion capacity is 23.3 mL/mmHg/min (91% predicted) and is 148% predicted after adjustment for alveolar volume. SUMMARY: These pulmonary function studies do not clearly indicate evidence of a significant obstructive ventilatory defect but do suggest a bronchodilator response to suggest reactive airways disease/asthma. There is no clear evidenceof restriction with mild air trapping appreciated. Diffusion capacity is normaland is actually supranormal adjusted for alveolar volume. There has been littlesignificant change compared to prior studies of March 2023 though without evidenceof significant airways hyperreactivity noted at that time. Clinical correlationis recommended. Transcribed By: REJI 05/01/252224 Dictated By: Dante Simmons MD 05/01/252224 Signed By: 05/01/252226 [facility]06-09-2025 Hospital Discharge instructions Patient Education 04/29/2025 10:01:11 [...] including vitamins, herbs, eye drops, creams, and lzzl-xnx-wjgzdhp medicines. Any problems you or family members [...] provider tells you to take them. Taking xnoi-tbh-qlvflii medicines, vitamins, herbs, and supplements. Tests You [...] Follow these instructions at home: Medicines Take oguz-xfj-njawmer and prescription medicines only as told by [...] blood in your urine increases, call your healthcare provider. Follow instructions from your health care provider about eating or drinking restrictions. If a tissue sample was removed for testing (biopsy) during your procedure, it is up to you to get your test results. Ask your health care provider, or the department that is doing the test, when yourresults will be ready. Drink enough fluid to [...] blood in your urine increases, call your healthcare provider. If you were prescribed an antibiotic [...] provider. Document Revised: 07/21/2022 Document Reviewed: 06/19/2021 [employer] Patient Education 2023 [employer]. Follow Up Care 10/30/2024 09:42:08 With:FLAVIO ONELA, Zac De Oliveira, URL Address: [facility] [address], [place] [address]- When: Unknown [facility] 06-09-2025 NotePatient Education Urology Cystoscopy Cystoscopy is a procedure [...] including vitamins, herbs, eye drops, creams, and zemz-ypg-ubioswh medicines. ??? Any problems you or family [...] tells you to take them. ??? Taking yugm-mux-gdsrolx medicines, vitamins, herbs, and supplements. Tests You [...] cystoscope to fill your bladder. The fluid willstretch your bladder so that your health care [...] these instructions at home: Medicines ??? Take ojsa-gfz-ynmtgft and prescription medicines only as told by your health care provider. ??? If you were prescribed an antibiotic medicine, take it as told by your health care provider. Donot stop taking the antibiotic even if you [...] testing (biopsy) during your (more content not included)...[facility]05-27-2025 History of Present illness Narrative* Sascha Sutton, DO - 04/16/2025 4:45 PM EDT Images [...] Exam Vitals reviewed. Exam conducted with a mechanical design engineer products present (Peter Emanuel MS 3). Constitutional: General: [...] EMG if no better documented in this encounterMercy Health Urbana HospitalReNeuron Group [facility] [id number] Miscellaneous Notes* Telephone Encounter - Carmen Neff CMA - 04/10/2025 3:04 PM EDT I spoke with pt and tried scheduling him but you are booked out until the 06 of May. Is there somewhere where you'd like him to be put? Pt has been icing and elevating leg. I advised him to wrap it as well. Thank you. * Telephone Encounter - Sascha Sutton DO - 04/10/2025 3:04 PM EDT Put in at 4:45 p.m. on Tuesday * Telephone Encounter - Carmen Neff CMA - 04/10/2025 3:04 PM EDT Pt is scheduled. documented in this encounterTr[facility]ull [facility]05-21-2025 Telephone encounter Note* Telephone Encounter - Carmen Neff CMA - 04/10/2025 3:04 PM EDT I spoke with pt and tried scheduling him but you are booked out until the 06 of May. Is there somewhere where you'd like him to be put? Pt has been icing and elevating leg. I advised him to wrap it as well. Thank you. [facility]05-21-[facility] Telephone encounter Note* Telephone Encounter - Sascha Sutton DO - 04/10/2025 3:04 PM EDT Put in at 4:45 p.m. on Tuesday [facility]05-21-[facility] Telephone encounter Note* Telephone Encounter - Carmen Neff CMA - 04/10/2025 3:04 PM EDT Pt is scheduled. [facility]05-21-20[facility] Evaluation note* Diagnosis Onset Date Resolution Status Admit Date Greater trochanteric bursitis of right h ip acuteMay 2024 9:30amIliotibial band syndrome, right legacuteMay 2024 9:30amLymphedema of both lower extremitiesacuteMay 2024 9:30amPrimary osteoarthritis of right hipacuteMay 2024 9:30amPrimary osteoarthritis of right kneeacuteMay 2024 9:30am [facility] Work Phone: 1(486) 436-850005-20-2025 History of Present illness Narrative* Kali Conklin [...] and has been using prescribed or recommended hkfg-sej-dvnvhjc cream with positive improvement. Patient has history of SLE and rheumatoid arthritis. Allergies: Allergies Allergen Reactions Aspirin Buf(Usvscl-Uwmigz-Nve) Other Reaction(s): Other (See Comments), Unknown Abdominal [...] Resource Strain: Low Risk (04/14/2023) Received from mobile mum Overall Financial Resource Strain (CARDIA) Difficulty of Paying Living Expenses: Not hard at all Food Insecurity: No Food Insecurity (02/25/2025) Received from mobile mum Hunger Screening Within the past 12 months we worried whether our food would run out before we got money to buy more.: Never True Within the past 12 months the food we bought just didn't last and we didn't have money to get more.: Never True Transportation Needs: No Transportation Needs (04/14/2023) Received from mobile mum PRAPARE - Transportation Lack of Transportation (Medical): No Lack of Transportation (Non-Medical): No Physical Activity: Inactive (05/01/2024) Received from mobile mum Exercise Vital Sign Days of Exercise per Week: 0 days Minutes of Exercise per Session: 0 min Stress: No Stress Concern Present (04/14/2023) [facility] [employer] of Occupational Health - Occupational Stress Questionnaire Feeling of Stress : Not at all Social Connections: Moderately Integrated (04/14/2023) Re[facility] from [facility] Social Connection and Isolation Panel [NHANES] Frequency of Communication with Friends and Family: Once a week Frequency of Social Gatherings with Friends and Family: Once a week Attends Holiness Services: More than 4 times per year Active Member of Clubs or Organizations: Yes Attends Club or Organization Meetings: Never Marital Status: Intimate Partner Violence: Not on file Housing Stability: Low Risk (04/14/2023) [facility] Housing Instability Are you worried [...] longer than right leg of a proximally lny-nxfkqqk-xsda Greatly diminished pain on palpation right heel [...] 10 Kali Conklin DPM documented in this encounterDoctors Hospital of [id number] History of Present illness Narrative* Whit Taylor [...] Take by mouth Allergies Allergen Reactions Aspirin Buf(Ksgker-Omdqeb-Zfm) Other Reaction(s): Other (See Comments), Unknown Abdominal [...] Depression: Not at risk (02/25/2025) Received from mobile mum PHQ-2 Total Score: 0 REVIEW OF SYMPTOMS: [...] reflexes: Teja's absent. Ankle clonus absent. Coordination Ivvbjb-gh-ztrb, rapid alternating movements and uust-df-tgxm normal bilaterally without dysmetria. Gait Normal casual, [...] by Whit Taylor MD documented in this [facility]04-14-2025 Telephone encounter Note* Telephone Encounter - Marian Guajardo NP - 03/04/2025 12:58 PM EDT Patient calls that tremors are worsening. He has scheduled appointment with Claudia on 03/20. I called the patient and left voicemail that he has upcoming appointment but until then increase primidone 50 mg 1/2 tab am and continue the 2 pills at bedtime. [facility] Work Phone: [phone] Miscellaneous Notes* Telephone Encounter - Marian Guajardo NP - 03/04/2025 12:58 PM EDT Patient calls that tremors are worsening. He has scheduled appointment with Claudia on 03/20. I called the patient and left voicemail that he has upcoming appointment but until then increase primidone 50 mg 1/2 tab am and continue the 2 pills at bedtime. documented in this [facility]04-07-2025 History of Present illness Narrative* Sascha Teagan Herman, - 02/25/2025 1:30 PM EDT Images from [...] Exam Vitals reviewed. Exam conducted with a mechanical design engineer products present (Chance Anders MS 3). Constitutional: General: [...] mouth in the morning. documented in this encounterTrumbull [facility] Hospital04-03-2025 History of Present illness Narrative* Kali Conklin, HUGOM - 02/21/2025 9:30 AM EDT Patient: Valentin [...] and has been using prescribed or recommended jibo-idn-vlndvil cream with improvement. Patient has history of SLE and rheumatoid arthritis. Allergies: Allergies Allergen Reactions Aspirin Buf(Rijfoq-Theewy-Osa) Other Reaction(s): Other (See Comments), Unknown Abdominal [...] Resource Strain: Low Risk (04/14/2023) Received from mobile mum, mobile mum Overall Financial Resource Strain (CARDIA) Difficulty of Paying Living Expenses: Not hard at all Food Insecurity: No Food Insecurity (01/25/2025) Received from mobile mum Hunger Screening Within the past 12 months we worried whether our food would run out before we got money to buy more.: Never True Within the past 12 months the food we bought just didn't last and we didn't have money to get more.: Never True Transportation Needs: No Transportation Needs (04/14/2023) Received from mobile mum, mobile mum PRAPARE - Transportation Lack of Transportation (Medical): No Lack of Transportation (Non-Medical): No Physical Activity: Inactive (05/01/2024) Received from mobile mum Exercise Vital Sign Days of Exercise per Week: 0 days Minutes of Exercise per Session: 0 min Stress: No Stress Concern Present (04/14/2023) Received from mobile mum, mobile mum [employer]ational [employer] - Occupational Stress Questionnaire Feeling of Stress : Not at all Social Connections: Moderately Integrated (04/14/2023) Received from mobile mum, mobile mum Social Connection and Isolation Panel [NHANES] Frequency of Communication with Friends and Family: Once a week Frequency of Social Gatherings with Friends and Family: Once a week Attends Holiness Services: More than 4 times per year Active Member of Clubs or Organizations: Yes Attends Club or Organization Meetings: Never Marital Status: Intimate Partner Violence: Not on file Housing Stability: Low Risk (04/14/2023) [facility] Housing Instability Are you worried [...] longer than right leg of a proximally tku-ztclvqz-sdfc Greatly diminished pain on palpation right heel [...] therapy Kali Conklin DPM documented in this encounterDoctors Hospital of [id number] Consult note Author Rita Matt [facility] HospitalNote Date/TimeMarch 2024 1:30pmSchell[place] [address] Cardiology Consult Note Signed Patient: Valentin Torre MR#: [id number] : 1955 Acct:[id number] Age/Sex: 69 / M Adm Date: 5 Loc: Room: [address] [place] [address] Type: ADM INOo Attending Dr: Gabi Almanzar MD Copies to: DO Rita Strong MD, [facility] Gabi Almanzar MD~ Cardiology HPI History [...] 11 point review of system essentially unremarkable [facility] Medical History Intention tremor Greater trochanteric bursitis [...] x10E3/uL Lymph # (Auto) 1.0 (1.00-4.8) x10E3/uL [place] # (Auto) 0.9 H (0.0-0.8) x10E3/uL Eos [...] arthritis, unspecified Documented By: Rita Matt MD, [facility] 5 1323 Signed By: <Electronically signed by MD AMA Matt> 02/16/25 [facility]0 [facility] Work Phone: 1(413) 909-800903-29-[address] [address] Discharge Summary Signed Patient: Valentin Torre MR#: [id number] : 1955 Acct:[id number] Age/Sex: 69 / M Adm Date: 5 Loc: 3T Room: [address] [place] [address]: Gabi Almanzar MD Copies to: [...] Pain) triamcinolone acetonide [Nasal Allergy] 55 mcg Aerosol,[place] 1 spray INTRANASAL DAILY carboxymethylcellulose sodium [Refresh [...] Continuity of Care Document Health Concerns: A [facility] screening has identified you as FRAIL [...] Ways to Beat the Frailty Risk [email or web address]/mnxfyruk-rsb-sqyouttfvp/st vt-kcjtxs-ggpr- xrhd-ji-xfnl-eju-vaqixnc-bnln Exam Physical Exam Vital Signs: Temp Pulse [...] Neut % (Auto) 78.4, Lymph % (Auto) 11.0,[place] % (Auto) 9.6, Eos % (Auto) 0.7, Baso % (Auto) 0.3, Nucleat RBC Rel Count 0.1, Neut # (Auto) 7.1, Lymph # (Auto) 1.0, [place] # (Auto) 0.9 H, Eos # (Auto) [...] MD 02/16/25 1453 Signed By: 02/16/25 1501 [facility]03-29-2025 [place] [address] Cardiology Consult Note Signed Patient: Valentin Torre MR#: [id number] : 1955 Acct:[id number] Age/Sex: 69 / M Adm Date: 5 Loc: Room: [address] [place] [address] Type: ADM INOo Attending Dr: Gabi Almanzar MD Copies to: DO Rita Strong MD, [facility] Gabi Almanzar MD~ Cardiology HPI History [...] 11 point review of system essentially unremarkable [facility] Medical History Intention tremor Greater trochanteric bursitis [...] x10E3/uL Lymph # (Auto) 1.0 (1.00-4.8) x10E3/uL [place] # (Auto) 0.9 H (0.0-0.8) x10E3/uL Eos [...] arthritis, unspecified Documented By: Rita Matt MD, [facility] 5 1323 Signed By: 02/16/25 1330 [facility]03-28-2025 History and physical note Author Marley Dumont [facility] HospitalNote Date/TimeMarch 2024 3:49pmSchell[place] [address] Hospitalist H&P Signed Patient: Valentin Torre MR#: [id number] : 1955 Acct:[id number] Age/Sex: 69 / M Adm Date: 5 Loc: Room: [address] [place] [address] Type: ADM INOo Attending Dr: Marley Dumont [...] negative unless noted below or in HPI [facility] Medical History Intention tremor Greater trochanteric bursitis [...] % (Auto) 10.3 % (.) 02/15/25 10:00 [place] % (Auto) 14.0 % (.) 02/15/25 10:00 Eos % (Auto) 0.5 % (.) 02/15/25 10:00 Baso % (Auto) 0.3 % (.) 02/15/25 10:00 Nucleat RBC Rel Count 0.1 /100 WBC (0-0.5) 02/15/25 10:00 Neut # (Auto) 7.1 x10E3/uL (1.8-7.7) 02/15/25 10:00 Lymph # (Auto) 1.0 x10E3/uL (1.00-4.8) 02/15/25 10:00 [place] # (Auto) 1.3 x10E3/uL (0.0-0.8) H 02/15/25 [...] signed by Marley Dumont MD> 02/15/25 1546 [facility] Work Phone: 1(758) 268-374203-28-2025 [place] [address] Hospitalist H&P Signed Patient: Valentin Torre MR#: [id number] : 1955 Acct:[id number] Age/Sex: 69 / M Adm Date: 5 Loc: Room: [address] [place] [address] Type: ADM INOo Attending Dr: Marley Dumont [...] negative unless noted below or in HPI [facility] Medical History Intention tremor Greater trochanteric bursitis [...] % (Auto) 10.3 % (.) 02/15/25 10:00 [place] % (Auto) 14.0 % (.) 02/15/25 10:00 Eos % (Auto) 0.5 % (.) 02/15/25 10:00 Baso % (Auto) 0.3 % (.) 02/15/25 10:00 Nucleat RBC Rel Count 0.1 /100 WBC (0-0.5) 02/15/25 10:00 Neut # (Auto) 7.1 x10E3/uL (1.8-7.7) 02/15/25 10:00 Lymph # (Auto) 1.0 x10E3/uL (1.00-4.8) 02/15/25 10:00 [place] # (Auto) 1.3 x10E3/uL (0.0-0.8) H 02/15/25 [...] 02/15/25 15 32 Signed By: 02/15/25 1549 [facility]03-21-2025 Evaluation note* Diagnosis Onset Date Resolution Status Admit Date Greater trochanteric bursitis of right h ip acuteMarch 2024 9:00amIliotibial band syndrome, right legacuteMarch 2024 9:00amPrimary osteoarthritis of right hipacuteMarch 2024 9:00am DyslipidemiaacuteMarch 2024 11:58amEssential hypertensionacuteMarch 2024 11:58amFrequent PVCsacuteMarch 2024 11:58amRheumatoid arthritisacute February 15, 2025 11:58amAtypical chest painresolvedMarch 2024 11:58am Arthritis of facet joint of cervical spineacuteApril 2024 7:52amArthritis of lumbosacral spineacuteApril 2024 7:52amChronic painacuteApril 2024 7:52amOsteoarthritis of right hipacuteApril 2024 7:52amArthritis of facet joint of cervical spineacuteMay 2024 7:47amArthritis of lumbosacral spine acuteMay 2024 7:47amChronic painacuteMay 2024 7:47amOsteoarthritis of right hipacuteMay 2024 7:47amGreater trochanteric bursitis of right hip acuteMay 2024 9:30amIliotibial band syndrome, right legacuteMay 2024 9:30amLymphedema of both lower extremitiesacuteMay 2024 9:30amPrimary osteoarthritis of right hipacuteMay 2024 9:30amPrimary osteoarthritis of right kneeacuteMay 2024 9:30am [facility] Work Phone: 1(331) 253-153403-20-2025 History of Present illness Narrative* Kali Grimaldo Mk, DPM - 02/07/2025 10:00 AM EDT Patient: [...] and has been using prescribed or recommended kptc-hjz-zppwlsf cream with improvement. Patient has history of SLE and rheumatoid arthritis. Allergies: Allergies Allergen Reactions Aspirin Buf(Asybql-Txovpc-Hgk) Other Reaction(s): Other (See Comments), Unknown Abdominal [...] Resource Strain: Low Risk (04/14/2023) Received from mobile mum, mobile mum Overall Financial Resource Strain (CARDIA) Difficulty of Paying Living Expenses: Not hard at all Food Insecurity: No Food Insecurity (01/25/2025) Received from mobile mum Hunger Screening Within the past 12 months we worried whether our food would run out before we got money to buy more.: Never True Within the past 12 months the food we bought just didn't last and we didn't have money to get more.: Never True Transportation Needs: No Transportation Needs (04/14/2023) Received from mobile mum, mobile mum PRAPARE - Transportation Lack of Transportation (Medical): No Lack of Transportation (Non-Medical): No Physical Activity: Inactive (05/01/2024) Received from mobile mum Exercise Vital Sign Days of Exercise per Week: 0 days Minutes of Exercise per Session: 0 min Stress: No Stress Concern Present (04/14/2023) Received from mobile mum, mobile mum [employer] - Occupational Stress Questionnaire Feeling of Stress : Not at all Social Connections: Moderately Integrated (04/14/2023) Received from mobile mum, mobile mum Social Connection and Isolation Panel [NHANES] Frequency of Communication with Friends and Family: Once a week Frequency of Social Gatherings with Friends and Family: Once a week Attends Holiness Services: More than 4 times per year Active Member of Clubs or Organizations: Yes Attends Club or Organization Meetings: Never Marital Status: Intimate Partner Violence: Not on file Housing Stability: Low Risk (04/14/2023) [facility] Housing Instability Are you worried [...] longer than right leg of a proximally lsu-jipzmsg-sndn Greatly diminished pain on palpation right heel [...] future Kali Conklin DPM documented in this encounterDoctors Hospital of [id number] History of Present illness Narrative* Kali Conklin [...] and has been using prescribed or recommended ggdz-ehl-mmrvzis cream with improvement. Patient presents today with [...] rheumatoid arthritis. Allergies: Allergies Allergen Reactions Aspirin Buf(Ssjplr-Gzpnln-Uni) Other Reaction(s): Other (See Comments), Unknown Abdominal [...] Resource Strain: Low Risk (04/14/2023) Received from [facility] mum, [facility] Overall Financial Resource Strain (CARDIA) Difficulty of Paying Living Expenses: Not hard at all Food Insecurity: No Food Insecurity (01/25/2025) Received from mobile mum Hunger Screening Within the past 12 months we worried whether our food would run out before we got money to buy more.: Never True Within the past 12 months the food we bought just didn't last and we didn't have money to get more.: Never True Transportation Needs: No Transportation Needs (04/14/2023) Received from mobile mum, [facility] PRAP[facility] - Transportation Lack of Transportation (Medical): No Lack of Transportation (Non-Medical): No Physical Activity: Inactive (05/01/2024) Received from mobile mum Exercise Vital Sign Days of Exercise per Week: 0 days Minutes of Exercise per Session: 0 min Stress: No Stress Concern Present (04/14/2023) [facility] mobile [facility], [facility] [employer] - Occupational Stress Questionnaire Feeling of Stress : Not at all Social Connections: Moderately Integrated (04/14/2023) Received from mobile mum, mobile mum Social Connection and Isolation Panel [NHANES] Frequency of Communication with Friends and Family: Once a week Frequency of Social Gatherings with Friends and Family: Once a week Attends Holiness Services: More than 4 times per year Active Member of Clubs or Organizations: Yes Attends Club or Organization Meetings: Never Marital Status: Intimate Partner Violence: Not on file Housing Stability: Low Risk (04/14/2023) Received from mobile mum, mobile mum Housing Instability Are you worried or concerned [...] longer than right leg of a proximally vrv-miekkav-mdlr Greatly diminished pain on palpation right heel [...] diagnosis. Kali Conklin DPM documented in this encounterDoctors Hospital of [id number] History of Present illness Narrative* Sascha G [...] helps with the pain. He saw the livestock slaughterer last week and was told that he [...] Recommend follow-up with ENT. documented in this encounterTr[facility]ull [facility]03-[facility] History of Present illness Narrative* Sascha Sutton [...] sent to the ED at [facility] for further evaluation. Since then he reports [...] MS3 01/25/25 12:00 PM documented in this encounterTrumbull Memorial Hospital02-22-2025 Radiology [facility] [place] [address] [place] [address] CT Scan Report Signed Patient: Valentin Torre MR#: [id number] : 1955 Acct:[id number] Age/Sex: 69 / M ADM Date: 5 Loc: ER Room: Type: [facility] ER Attending Dr: Copies to: Matthew [...] MRI 01/10/2024 FINDINGS: L5-S1: Mild disc disease. Dyxp-vo-pniafhyl neural from narrowing. Advanced facet arthropathy. Laminectomy. L4-5 Postsurgical changes L4-5 status post the decompressive laminectomy and posterior fusion and discectomy. Stable 5 mm of anterolisthesis. Scmf-tf-iiumxqfk foraminal narrowing at this level. L3-4 Moderate [...] Alo Mayer M.D.01/12/2025 2:53 PM Dictation Location: [place] [address] Transcribed By: [facility] 01/12/25 1453 Dictated By: Alo Mayer MD 01/12/25 1438 Signed By: 01/12/25 145 [facility] Work Phone: 1(296) 455-661702-22-2025 Radiology Diagnostic [facility] Main [place] [address] [place] [address] CT Scan Report Signed Patient: Valentin Torre MR#: [id number] : 1955 Acct:[id number] Age/Sex: 69 / M ADM Date: 5 Loc: ER Room: Type: [facility] ER Attending Dr: Copies to: Matthew [...] ACUTE INTRACRANIAL ABNORMALITY. CHRONIC SMALL VESSEL CHANGES IYFO-PN-JMHZUXLO PARANASAL SINUS DISEASE Impression dictated by: Alo Mayer M.D.01/12/2025 2:28 PM Dictation Location: [place] [address] Transcribed By: [facility] 01/12/25 142 Dictated By: Alo Mayer MD 01/12/251425 Signed By: 01/12/25 1428 [facility] Work Phone: 1(893) 620-835002-22-2025 Evaluation note* Diagnosis Onset Date Resolution Status Admit Date Fall acuteFebruary 2024 10:56amGreater trochanteric bursitis of right hipacute February 08, 2025 9:00amIliotibial band syndrome, right legacuteMarch 2024 9:00amPrimary osteoarthritis of right hipacuteMar2024 9:00am DyslipidemiaacuteMarch 2024 11:58amEssential hypertensionacuteMarch 2024 11:58amFrequent PVCsacuteMarch 2024 11:58amRheumatoid arthritisacute February 15, 2025 11:58amAtypical chest painresolvedMarch 2024 11:58am Arthritis of facet joint of cervical spineacuteApril 2024 7:52amArthritis of lumbosacral spineacuteApril 2024 7:52amChronic painacuteApril 2024 7:52amOsteoarthritis of right hipacuteApril 2024 7:52am [facility] Work Phone: 1(103) 709-483402-22-2025 Evaluation note* Diagnosis Onset Date Resolution Status Admit Date Fall acuteFebruary 2024 10:56amGreater trochanteric bursitis of right hipacute February 08, 2025 9:00amIliotibial band syndrome, right legacuteMarch 2024 9:00amPrimary osteoarthritis of right hipacuteMarch 2024 9:00am DyslipidemiaacuteMarch 2024 11:58amEssential hypertensionacuteMarch 2024 11:58amFrequent PVCsacuteMarch 2024 11:58amRheumatoid arthritisacute February 15, 2025 11:58amAtypical chest painresolvedMarch 2024 11:58am Arthritis of facet joint of cervical spineacuteApril 2024 7:52amArthritis of lumbosacral spineacuteApril 2024 7:52amChronic painacuteApril 2024 7:52amOsteoarthritis of right hipacuteApril 2024 7:52amArthritis of facet joint of cervical spineacuteMay 2024 7:47amArthritis of lumbosacral spine acuteMay 2024 7:47amChronic painacuteMay 2024 7:47amOsteoarthritis of right hipacuteMay 2024 7:47am [facility] Work Phone: 1(250) 234-211502-20-2025 History of Present illness Narrative* Kali Conklin, [...] is very painful with ambulation has tried ladb-tkk-lbclhur creamswith negative improvement Patient presents today with a CC of elongated, thick nails. Pt states nails have been elongated and thick for many years and cause pain with ambulation in shoegear. Pt has tried previous treatment with minimal relief. Pt presents today for nail care and treatment. Allergies: Allergies Allergen Reactions Aspirin Buf(Uhuthv-Iooite-Ntc) Other Reaction(s): Other (See Comments), Unknown Abdominal [...] Resource Strain: Low Risk (04/14/2023) Received from mobile mum, mobile mum Overall Financial Resource Strain (CARDIA) Difficulty of Paying Living Expenses: Not hard at all Food Insecurity: No Food Insecurity (12/17/2024) Received from mobile mum Hunger Screening Within the past 12 months we worried whether our food would run out before we got money to buy more.: Never True Within the past 12 months the food we bought just didn't last and we didn't have money to get more.: Never True Transportation Needs: No Transportation Needs (04/14/2023) Received from mobile mum, mobile mum PRAPARE - Transportation Lack of Transportation (Medical): No Lack of Transportation (Non-Medical): No Physical Activity: Inactive (05/01/2024) Received from mobile mum Exercise Vital Sign Days of Exercise per Week: 0 days Minutes of Exercise per Session: 0 min Stress: No Stress Concern Present (04/14/2023) Received from mobile mum, mobile mum [employer] - Occupational Stress Questionnaire Feeling of Stress : Not at all Social Connections: Moderately Integrated (04/14/2023) Received from mobile mum, mobile mum Social Connection and Isolation Panel [NHANES] Frequency of Communication with Friends and Family: Once a week Frequency of Social Gatherings with Friends and Family: Once a week Attends Holiness Services: More than 4 times per year Active Member of Clubs or Organizations: Yes Attends Club or Organization Meetings: Never Marital Status: Intimate Partner Violence: Not on file Housing Stability: Low Risk (04/14/2023) [facility], [facility] Housing Instability Are you worried [...] longer than right leg of a proximally mto-xjizccm-hvmf Positive palpation right heel fissure ASSESSMENT 1. [...] or drainage to feet. Patient to consider acxy-hcu-wrvyfsk treatments for medication or use of urea cream and prescription today was offered for Lac-Hydrin cream. Prescription today for urea 40 Kali Conklin DPM documented in this encounterDoctors Hospital of [id number] Telephone encounter Note* Telephone Encounter - Farida Garay - 01/03/2025 9:47 AM EST Pt will went up to 1 pill of Primidone per. Dr. Claudia escobar has helped and he will need a new Rx called to [facility] [place]. [facility] Work Phone: 1(481) 655-717002-13-2025 Miscellaneous Notes* Telephone Encounter - Farida Garay - 01/03/2025 9:47 AM EST Pt will went up to 1 pill of Primidone per. Dr. Claudia escobar has helped and he will need a new Rx called to [facility] in [place]. documented in this encounterDoctors Hospital of [id number] History of Present illness Narrative* Whit Taylor [...] Take by mouth Allergies Allergen Reactions Aspirin Buf(Fsefso-Reciyv-Ztj) Other Reaction(s): Other (See Comments), Unknown Abdominal [...] Depression: Not at risk (12/17/2024) Received from mobile mum PHQ-2 Total Score: 0 REVIEW OF SYMPTOMS: [...] in all four extremities, including at least tractor trailer mechanic, finger abductors, biceps, triceps, deltoid, toe flexors [...] ROM, and improve function. documented in this encounterDoctors Hospital of [id number] History of Present illness Narrative* Carlos Navarro Meek, DO - 12/17/2024 2:30 PM EST Subjective Patient ID: HPI Patient presents today to reinspect a right thyroid nodule, previously 1.2 cm [place] II. He is doing fine Review of [...] ultrasound at that time documented in this encounterDoctors Hospital of [id number] History of Present illness Narrative* Sascha Sutton [...] Objective Physical Exam Exam conducted with a mechanical design engineer products present (Junior Collins MS III). Constitutional: General: [...] with neurologist as directed 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[facility] Follow up with prestressed concrete laborer as directed Antiphospholipid syndrome ([facility]) Follow up with gi technician as directed Class 1 obesity due to [...] needs it for stability. documented in this encounterTrumbull [facility] Hospital01-06-2025 Evaluation note* Diagnosis Onset Date Resolution Status Admit Date Arthritis of facet joint of cervical spi ne acuteJanuary 2024 9:44amArthritis of lumbosacral spineacuteJanuary 2024 9:44amChronic painacuteJanuary 2024 9:44amOsteoarthritis of right hip acuteJanuary 2024 9:44amFallacuteFebruary 2024 10:56amGreater trochanteric bursitis of right hipacuteMarch 2024 9:00amIliotibial band syndrome, right legacuteMarch 2024 9:00amPrimary osteoarthritis of right hipacuteMarch 2024 9:00am [facility] Work Phone: 1(834) 866-784401-06-2025 Evaluation note* Diagnosis Onset Date Resolution Status Admit Date Arthritis of facet joint of cervical spi ne acuteJanuary 2024 9:44amArthritis of lumbosacral spineacuteJanuary 2024 9:44amChronic painacuteJanuary 2024 9:44amOsteoarthritis of right hip acuteJanuary 2024 9:44amFallacuteFebruary 2024 10:56amGreater trochanteric bursitis of right hipacuteMarch 2024 9:00amIliotibial band syndrome, right legacuteMarch 2024 9:00amPrimary osteoarthritis of right hipacuteMarch 2024 9:00amAtypical chest painacuteMarch 2024 11:58am DyslipidemiaacuteMarch 2024 11:58amEssential hypertensionacuteMarch 2024 11:58amFrequent PVCsacuteMarch 2024 11:58amRheumatoid arthritisacute February 15, 2025 11:58am [facility] Work Phone: 1(313) 610-184501-06-2025 Evaluation note* Diagnosis Onset Date Resolution Status Admit Date Arthritis of facet joint of cervical spi ne acuteJanuary 2024 9:44amArthritis of lumbosacral spineacuteJanuary 2024 9:44amChronic painacuteJanuary 2024 9:44amOsteoarthritis of right hip acuteJanuary 2024 9:44amFallacuteFebruary 2024 10:56amGreater trochanteric bursitis of right hipacuteMarch 2024 9:00amIliotibial band syndrome, right legacuteMarch 2024 9:00amPrimary osteoarthritis of right hipacuteMarch 2024 9:00amAtypical chest painacuteMarch 2024 11:58am DyslipidemiaacuteMarch 2024 11:58amEssential hypertensionacuteMarch 2024 11:58amFrequent PVCsacuteMarch 2024 11:58amRheumatoid arthritisacute February 15, 2025 11:58amArthritis of facet joint of cervical spineacuteApril 2024 7:52amArthritis of lumbosacral spineacuteApril 2024 7:52amChronic painacuteApril 2024 7:52amOsteoarthritis of right hipacuteApril 2024 7:52am [facility] Work Phone: 1(488) 398-982612-20-2024 Evaluation note* Diagnosis Onset Date Resolution Status Admit Date Greater trochanteric bursitis of right h ip acuteDecember 2023 10:51amPrimary osteoarthritis of right hipacuteDecember 2023 10:51amArthritis of facet joint of cervical spineacuteJanuary 2024 9:44amArthritis of lumbosacral spineacuteJanuary 2024 9:44amChronic painacuteJanuary 2024 9:44amOsteoarthritis of right hipacuteJanuary 2024 9:44amFallacuteFebruary 2024 10:56am [facility] Work Phone: 1(170) 301-575912-12-2024 History of Present illness Narrative* Kalielliott Conklin, DPM - 11/01/2024 1:00 PM EST [...] shoe gear Allergies: Allergies Allergen Reactions Aspirin Buf(Bdhcwl-Nasvhj-Jqi) Other Reaction(s): Other (See Comments), Unknown Abdominal [...] Resource Strain: Low Risk (04/14/2023) Received from mobile mum, [facility] Overall Financial Resource Strain (CARDIA) Difficulty of Paying Living Expenses: Not hard at all Food Insecurity: No Food Insecurity (09/24/2024) Received from mobile mum Hunger Screening Within the past 12 months we worried whether our food would run out before we got money to buy more.: Never True Within the past 12 months the food we bought just didn't last and we didn't have money to get more.: Never True Transportation Needs: No Transportation Needs (04/14/2023) Received from mobile mum, [facility] [employer] [facility] PRAPARE - Transportation Lack of Transportation (Medical): No Lack of Transportation (Non-Medical): No Physical Activity: Inactive (05/01/2024) Received from mobile mum Exercise Vital Sign Days of Exercise per Week: 0 days Minutes of Exercise per Session: 0 min Stress: No Stress Concern Present (04/14/2023) Received from mobile mum, [facility] [employer] - Occupational Stress Questionnaire Feeling of Stress : Not at all Social Connections: Moderately Integrated (04/14/2023) Received from mobile mum, [facility] [employer] [facility] Social Connection and Isolation Panel [NHANES] Frequency of Communication with Friends and Family: Once a week Frequency of Social Gatherings with Friends and Family: Once a week Attends Holiness Services: More than 4 times per year Active Member of Clubs or Organizations: Yes Attends Club or Organization Meetings: Never Marital Status: Intimate Partner Violence: Not on file Housing Stability: Low Risk (04/14/2023) Received from mobile mum, [facility] Housing Instability Are you worried [...] . Kali Conklin DPM documented in this encounterDoctors Hospital of [id number] Evaluation note* Diagnosis Onset Date Resolution Status Admit Date Primary osteoarthritis of right hip acuteNovember 2023 8:46amGreater trochanteric bursitis of right hipacute November 09, 2024 10:51amPrimary osteoarthritis of right hipacuteDeceer 2023 10:51amArthritis of facet joint of cervical spineacuteJanuary 2024 9:44amArthritis of lumbosacral spineacuteJanuary 2024 9:44amChronic painacuteJanuary 2024 9:44amOsteoarthritis of right hipacuteJanuary 2024 9:44am [facility] Work Phone: 1(458) 331-473911-27-2024 Evaluation note* Diagnosis Onset Date Resolution Status Admit Date Primary osteoarthritis of right hip acuteNovember 2023 8:46amGreater trochanteric bursitis of right hipacute November 09, 2024 10:51amPrimary osteoarthritis of right hipacuteDecember 2023 10:51amArthritis of facet joint of cervical spineacuteJanuary 2024 9:44amArthritis of lumbosacral spineacuteJanuary 2024 9:44amChronic painacuteJanuary 2024 9:44amOsteoarthritis of right hipacuteJanuary 2024 9:44amFallacuteFebruary 2024 10:56am [facility] Work Phone: 1(313) 205-544011-25-2024 History of Present illness Narrative* Whit Taylor [...] more tasks such as holding a screw route driver coin machines, etc. Denies any other concerns. CURRENT MEDICATIONS: [...] MG tablet Oral Allergies Allergen Reactions Aspirin Buf(Rxglhh-Ozfhwf-Gds) Other Reaction(s): Other (See Comments), Unknown Abdominal [...] Depression: Not at risk (09/24/2024) Received from mobile mum PHQ-2 Total Score: 0 REVIEW OF SYMPTOMS: [...] reflexes: Teja's absent. Ankle clonus absent. Coordination Nyyyli-gb-qdzf, rapid alternating movements and odjd-qu-dvmq normal bilaterally without dysmetria. Gait Normal casual, [...] Follow up 8 weeks. documented in this encounterDoctors Hospital of [id number] History of Present illness Narrative* Sascha Sutton, [...] given predniSONE (DELTASONE) 20 mg tablet and vbigqdueyte-mmhiviarw-pnmbktpa (TRELEGY ELLIPTA) 100-62.5-25 mcg blister with device. [...] Sinus: Frontal sinus tenderness present. Mouth/Throat: Lips: [place]. Mouth: Mucous membranes are moist. Pharynx: Posterior [...] this for 10 days. documented in this encounterTrumbull [facility] Hospital11-04-2024 History of Present illness Narrative* Sascha Sutton [...] Exam Vitals reviewed. Exam conducted with a mechanical design engineer products present (Ramiro Ferreira MS III). Constitutional: General: [...] Sinus: No maxillary sinus tenderness. Mouth/Throat: Lips: [place]. Mouth: Mucous membranes are moist. Pharynx: Oropharynx [...] times a day for 3 days. - gajprenieze-fqxdhkhsm-ojqpefmx (TRELEGY ELLIPTA) 100-62.5-25 mcg blister with device; Inhale 1 puff once daily for 14 days. documented in this encounterTrumbull [facility] Hospital10-30-2024 Evaluation note* Diagnosis Onset Date Resolution Status Admit Date Cough acuteOctober 2023 9:04amShortness of breathacuteOctober 2023 9:04am Primary osteoarthritis of right hipacuteNovember 2023 8:46amGreater trochanteric bursitis of right hipacuteDecember 2023 10:51amPrimary osteoarthritis of right hipacuteDecember 2023 10:51amArthritis of facet joint of cervical spineacuteJanuary 2024 9:44amArthritis of lumbosacral spineacuteJanuary 2024 9:44amChronic painacuteJanuary 2024 9:44am Osteoarthritis of right hipacuteJanuary 2024 9:44am [facility] Work Phone: 1(752) 534-524310-14-2024 Hospital Discharge instructions Patient Education 09/03/2024 10:59:52 [...] Follow these instructions at home: Medicines Take ruwx-dve-kstqomi and prescription medicines only as told by [...] to keep your pee pale yellow. ?Take adcy-ccr-cwjwjnd or prescription medicines. ?Eat foods that are [...] provider. Document Revised: 07/08/2023 Document Reviewed: 07/08/2023 [employer] Patient Education 2023 [employer]. 09/03/2024 10:59:51 Laser Therapy for Kidney Stones [...] including vitamins, herbs, eye drops, creams, and vjnn-vvk-akesgjx medicines. Any problems you or family members [...] unless your provider tells you to. ?Taking saiz-skd-znxkdiv medicines, vitamins, herbs, and supplements. Tests You [...] provider. Document Revised: 07/08/2023 Document Reviewed: 07/08/2023 [employer] Patient Education 2023 [employer]. Follow Up Care 09/19/2023 10:33:39 With:FLAVIO ONEAL, Zac De Oliveira, URL Address: [facility] [address], [place] [address]- [phone] When: Unknown [facility] 10-14-2024 NotePatient Education Nephrology Laser Therapy for [...] these instructions at home: Medicines ? Take wfpa-ocm-jdhcgoy and prescription medicines only as told by [...] keep your pee pale yellow. ? Take jfiy-smw-ptzziui or prescription medicines. ? Eat foods that [...] provider. Document Revised: 07/08/2023 Document Reviewed: 07/08/2023 [employer] Patient Education ? 2023 [employer] Laser Therapy for Kidney Stones Laser [...] including vitamins, herbs, eye drops, creams, and usbp-lol-fasudrk medicines. ? Any problems you or family [...] foods. Do not e (more content not included)...[facility]09-27-2024 History of Present illness Narrative* Kali Conklin, [...] shoe gear Allergies: Allergies Allergen Reactions Aspirin Buf(Ujxibr-Ddebrf-Twb) Other Reaction(s): Other (See Comments), Unknown Abdominal [...] Resource Strain: Low Risk (04/14/2023) Received from mobile mum, [employer] [facility] Overall Financial Resource Strain (CARDIA) Difficulty of Paying Living Expenses: Not hard at all Food Insecurity: No Food Insecurity (06/14/2024) Received from mobile mum Hunger Screening Within the past 12 months we worried whether our food would run out before we got money to buy more.: Never True Within the past 12 months the food we bought just didn't last and we didn't have money to get more.: Never True Transportation Needs: No Transportation Needs (04/14/2023) Received from mobile mum, [facility] PRAPARE - Transportation Lack of Transportation (Medical): No Lack of Transportation (Non-Medical): No Physical Activity: Inactive (05/01/2024) Received from mobile mum Exercise Vital Sign Days of Exercise per Week: 0 days Minutes of Exercise per Session: 0 min Stress: No Stress Concern Present (04/14/2023) Received from mobile mum, [employer] [facility] [employer] - Occupational Stress Questionnaire Feeling of Stress : Not at all Social Connections: Moderately Integrated (04/14/2023) Received from mobile mum, [facility] Social Connection and Isolation Panel [NHANES] Frequency of Communication with Friends and Family: Once a week Frequency of Social Gatherings with Friends and Family: Once a week Attends Holiness Services: More than 4 times per year Active Member of Clubs or Organizations: Yes Attends Club or Organization Meetings: Never Marital Status: Intimate Partner Violence: Not on file Housing Stability: Low Risk (04/14/2023) [facility] Inst[facility] Are you worried or concerned [...] Podiatry Kali Conklin DPM documented in this encounterDoctors Hospital of [id number] Evaluation note* Diagnosis Onset Date Resolution Status Admit Date Arthritis of facet joint of cervical spi ne acuteSept2023 10:01amArthritis of lumbosacral spineacuteSeptember 2023 10:01amChronic painacuteSeptember 2023 10:01amArthritis of facet joint of cervical spineacuteSeptember 2023 10:16amArthritis of lumbosacral spineacuteSeptember 2023 10:16amChronic painacuteSeptember 2023 10:16amOsteoarthritis of right hipacuteSeptember 2023 10:16amPrimary osteoarthritis of right hipacuteOctober 2023 10:05amCoughacuteOctober 2023 9:04amShortness of breathacuteOctober 2023 9:04am [facility] Work Phone: 1(315) 233-812207-26-2024 Miscellaneous Notes* Telephone Encounter - Karin Camacho [...] note stated he understood documented [facility] [employer] [id number] Telephone encounter Note* Telephone Encounter - Karin [...] Recheck in 6 months. Continue current regimen [facility] [employer] [id number] Telephone encounter Note* Telephone Encounter - Ally Phillips CMA - 06/15/2024 10:34 AM EDT Pt called read your note stated he understood [facility]07-25-[facility] History of Present illness Narrative* Sascha Sutton, [...] Objective Physical Exam Exam conducted with a mechanical design engineer products present (Junior Collins MS III). Constitutional: General: [...] and encouraged to continue. documented in [facility]Tr[facility] Hospital Discharge instructions Patient Education 05/15/2024 13:41:01 [...] urethra. Follow these instructions at home: Take uupe-xom-deovzio and prescription medicines only as told by [...] provider. Document Revised: 05/26/2022 Document Reviewed: 05/26/2022 [employer] Patient Education 2022 [employer]. Follow Up Care 03/20/2024 12:59:39 With:BILL FERRERA, LEAH Feliz, URL Address: [address] [facility] [place] [address] When: Unknown [facility] History of Present illness Narrative* Sascha Sutton, - 05/01/2024 10:20 AM EDT Subjective SUBJECTIVE: [...] Do you have a durable power of kitman?: Yes Cognitive Screening Do you have trouble [...] 1 year (around 05/01/2025). documented in this encounterMercy Health Urbana HospitalReNeuron Group [facility] [id number] Hospital Discharge instructions Patient Education 03/20/2024 13:11:31 [...] nerve stimulation). ?For women, using a medical housekeeper to prevent urine leaks. This is a [...] right after experiencing incontinence. General instructions Take zosa-mbk-esgaeuk and prescription medicines only as told by [...] important. Where to find more information National [place] of Diabetes and Digestive and Kidney Diseases: www.niddk.nih.gov [place] U[employer] Association: www.urologyhealth.org Contact a health care [...] provider. Document Revised: 06/12/2021 Document Reviewed: 06/12/2021 [employer] Patient Education 2022 [employer]. 03/20/2024 13:11:28 Cancer Screening for Men Cancer [...] if anything looks unusual. Men with a pezqti-mvsi-clpugj risk for skin cancer may want to see a piercing specialist (drawer in jacquard loom) for an annual body check. What are the benefits of screening? Cancer screening is done to look for cancer in the very early stages, before it spreads and becomesharder to treat and before you would start to notice symptoms. Finding cancer early improves the chances of successful treatment. It may save your life. Where to find more information [place] Cancer Society: www.cancer.org Centers for Disease Control and Prevention: www.cdc.gov National Cancer [place]: www.cancer.gov Contact a health care provider if: [...] provider. Document Revised: 04/05/2022 Document Reviewed: 10/03/2020 [employer] Patient Education 2022 [employer]. 03/20/2024 13:11:20 Urinary Incontinence Urinary Incontinence Urinary [...] nerve stimulation). ?For women, using a medical housekeeper to prevent urine leaks. This is a [...] right after experiencing incontinence. General instructions Take imls-qho-hazxuel and prescription medicines only as told by [...] important. Where to find more information National [place] of Diabetes and Digestive and Kidney Diseases: www.niddk.nih.gov [place] Urology Association: www.urologyhealth.org Contact a health care [...] provider. Document Revised: 06/12/2021 Document Reviewed: 06/12/2021 [employer] Patient Education 2022 [employer]. 03/20/2024 13:11:17 Kidney Stones, Ktun-xc-Kems Kidney Stones Kidney stones are rock-like masses [...] Follow these instructions at home: Medicines Take ljle-qll-ipjgfjc and prescription medicines only as told by [...] provider. Document Revised: 07/12/2022 Document Reviewed: 07/12/2022 [employer] Patient Education 2022 [employer]. Follow Up Care 03/16/2024 08:31:59 With:FRANCIS Jimenez APRN, Daria Lechuga, NEYMAR, URL Address: When: Unknown Comments:8 wk w/ PVR [facility] 03-21-2024 Evaluation note* Author Мария Hernandez [facility] 2023 4:34pm1. 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 [...] follow-up for surgical consult with Dr. Khalil. [facility] Work Phone: 1(362) 209-183202-28-2024 Hospital Discharge instructions Patient Education 01/18/2024 09:34:25 [...] Follow these instructions at home: Medicines Take vnax-pat-qefalhl and prescription medicines only as told by [...] provider. Document Revised: 10/04/2022 Document Reviewed: 07/12/2022 [employer] Patient Education 2022 [employer]. 01/18/2024 09:34:24 Lithotripsy Lithotripsy Lithotripsy is a [...] including vitamins, herbs, eye drops, creams, and emvx-vxw-eqnkuhy medicines. Any problems you or family members [...] provider tells you to take them. Taking zyrb-aml-epuhdvc medicines, vitamins, herbs, and supplements. Tests You [...] provider. Document Revised: 10/04/2022 Document Reviewed: 07/12/2022 [employer] Patient Education 2022 [employer]. Follow Up Care 01/03/2024 14:10:04 With:FLAVIO ONEAL, Zac De Oliveira, ONEYDAL Address: [facility] [address], [place] [address]- When: Unknown [facility] 02-09-2024 Evaluation note* Encounter Date Diagnosis Assessment Notes Treatment Notes Treatment Clinical Notes Dec, Spinal stenosis of l umbar region without neurogenic claudication (ICD-10 - M48.061) Reviewed previous X-rays: Hardware placement appears good, with a well- positioned cage. Evidence ofresidual spondylolisthesis. MRI: Ordered to further evaluate the [...] Pharmacological management continue with current medications as p recribed. Continue with PT and conservative therapy. Follow up in 6 weeks to Review MRI. Dec,Lumbar pain (ICD-10 - M54.50) Dec,Hx of decompressive lumbar laminectomy (ICD-10 - Z98.890) Dec,ight cervical radiculopathy (ICD-10 - M54.12)Cervical stenosis with radiculopathy (right arm): - Order cervical x-ray with flexion and extension today - Consider EMG of bilateral upper extremities for right ulnar nerve evaluation - Follow up insix weeks or after imaging completion Dec,Ulnar neuritis, right (ICD-10 - G56.21)Right ulnar nerve issue: - [facility] - Schedule bilateral upper extremity EMG - Follow up in six weeks or after EMG completion Dec,OtherNote: Patient has a history of lupus, previous surgeries, and steroid injections in the knees. [employer] Other 02-07-2024 History of Present illness Narrative* [...] X-rays 3 views taken [facility] foot at [facility] reveal fracture of the head [...] may cancel that appointment. documented in this encounterDoctors Hospital of [id number] History of Present illness Narrative* Sascha Sutton, [...] Objective Physical Exam Exam conducted with a mechanical design engineer products present (Junior Collins MS III). Constitutional: Appearance: [...] views; Future - [facility] [place], [place]; Future Check x-ray of lumbar spine. 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 Cubital tunnel syndrome on right Can try an elbow pad to see if that helps. Consider ortho consult. Paresthesias Intermittent paresthesias on the left side of his neck. Possibly coming from cervical disc disease.Previous cervical CT scan reviewed and did show moderate degenerative disc disease with encroachment of the neural foramina. documented in this encounterTr[facility]ull [facility]10[facility] Hospital Discharge instructions Patient Education [...] include: ?8 oz (237 mL) of milk, ighjvoh-oduaegveamuq-ptirm milk, and calcium- fortifiedfruit juice. Calcium-fortified means [...] ?Spinach (cooked), rhubarb, beets, sweet potatoes, and Malaysian chard. ?Peanuts. ?Potato chips, indonesian fries, and baked potatoes with skin on. ?Nuts and nut products. ?Chocolate. If you regularly take a diuretic medicine, make sure to eat at least 1 or 2 servings of fruits or vegetables that are high in potassium each day. These include: ?Avocado. ?Banana. ?[place], prune, carrot, or tomato juice. ?Baked potato. [...] magnesium, fish oil, or vitamin B6. Take cdeh-wod-gtczxkd and prescription medicines only as told by [...] Casseroles. Pizza. Lasagna. Frozen meals. Potato chips. Canadian fries. The items listed above may not [...] provider. Document Revised: 07/19/2022 Document Reviewed: 07/19/2022 [employer] Patient Education 2022 [employer]. Follow Up Care 08/08/2023 12:11:26 With:Zac MUNIZ MD, URL Address: [facility] [address] [place] [address]- [phone] When: Unknown [facility] 07-05-2023 Hospital Discharge instructions Follow Up Care 05/25/2023 15:06:06 With:Zac MUNIZ MD, URL Address: [facility] [address] [place] [address]- [phone] When: Unknown [facility] 05-15-2023 Procedure [facility]05-15-2023 Hospital Discharge instructions Additional Instructions DISCHARGE INSTRUCTIONS FOR CARDIAC TREE CARE FOREMAN PHONE NUMBER OF YOUR PHYSICIAN: [phone] PROCEDURE: Heart Cath The following instructions have [...] cold, numb, blue or white, call the gi technician immediately. 4. ACTIVITY: You are advised to [...] bottle, follow the instructions on the bottle. [facility] is not responsible for incorrect prescription information provided by the patient during their visit. Do not stop your medications without consulting your health care provider. Please take the list with you to your next doctor's appointment.[facility] Work Phone: 1(687) 212-926004-30-2023 Chief complaint Narrative - Reported* VALENTIN TORRE is being seen for a consultation for chest pain. * 67-year-old gentleman seen in cardiology consultation at the request of Dr. Sutton following an episode of severe chest discomfort with left and right neck radiation that occurred at [facility] this past Tuesday with subsequent stress imaging performed after he was admitted at [facility] that was reportedly unremarkable. Patient has since [...] with a heart catheterization sometime next week [facility] [address] DO Work Phone: 1(209) 513-622405-20-2022 NotePROCEDURE: XR SHOULDER RT 2V or > [...] Electronically authenticated by: PRIMO GALE Date: 2022-04-09 16:53[facility] HospitalDischarge summary Author Gabi Almanzar [facility] HospitalNote Date/TimeMarch 2024 3:01pmSche[place] [address] Discharge Summary Signed Patient: Valentin Torre MR#: [id number] : 1955 Acct:[id number] Age/Sex: 69 / M Adm Date: 5 Loc: Room: [address] [place] [address]: Gabi Almanzar MD Copies to: [...] Pain) triamcinolone acetonide [Nasal Allergy] 55 mcg Aerosol,[place] 1 spray INTRANASAL DAILY carboxymethylcellulose sodium [Refresh [...] Continuity of Care Document Health Concerns: A [facility] screening has identified you as FRAIL [...] Ways to Beat the Frailty Risk [email or web address]-yqo-ppdufarufx/st by-nqsqua-roen- irho-iw-slds-juh-ihmgsvb-dalp Exam Physical Exam Vital Signs: Temp Pulse [...] Neut % (Auto) 78.4, Lymph % (Auto) 11.0,[place] % (Auto) 9.6, Eos % (Auto) 0.7, Baso % (Auto) 0.3, Nucleat RBC Rel Count 0.1, Neut # (Auto) 7.1, Lymph # (Auto) 1.0, [place] # (Auto) 0.9 H, Eos # (Auto) [...] signed by Gabi Almanzar MD> 02/16/25 1501 [facility] Work Phone: Evaluation + Plan note Future Appointments Appointment Date:08/08/2023 11:45:00 AM Scheduled Provider:Zac MUNIZ MD Location:[facility] Appointment Type:URO Office Visit [facility] evaluation + Plan note Future Appointments Appointment Date:09/19/2023 09:30:00 AM Scheduled Provider:Zac MUNIZ MD Location:[facility] Appointment Type:URO Office Visit [facility] evaluation + Plan note Future Appointments Appointment Date:03/23/2024 08:15:00 AM Scheduled Provider:Zac MUNIZ MD Location:[facility] Appointment Type:URO Office Visit Diagnostic Tests Pending * Electrolyte Panel 09/19/23 [facility] evaluation + Plan note Future Appointments Appointment Date:03/23/2024 08:15:00 AM Scheduled Provider:Zac MUNIZ MD Location:[facility] Appointment Type:URO Office Visit [facility] Evaluation + Plan note Future Appointments Appointment Date:03/23/2024 08:15:00 AM Scheduled Provider:Zac MUNIZ MD Location:[facility] Appointment Type:URO Office Visit Diagnostic Tests Pending * Calculi Analysis [facility] Future Appointments Appointment Date:05/15/2024 09:30:00 AM Scheduled Provider:FRANCIS Jimenez APRN, [place] X Location:[facility] Appointment Type:URO Office Visit Appointment Date:09/03/2024 09:45:00 AM Scheduled Provider:Zac MUNIZ MD Location:[facility] Appointment Type:URO [facility] + Plan note Future Appointments Appointment Date:09/03/2024 09:45:00 AM Scheduled Provider:Zac MUNIZ MD Location:[facility] Appointment Type:URO Office [facility] + Plan note Future Appointments Appointment Date:06/12/2025 07:30:00 AM Scheduled Provider:Zac MUNIZ MD Location:[facility] Appointment Type:URO Procedure 15 min [facility] evaluation + Plan note Future Appointments Appointment Date:07/01/2025 08:45:00 AM Scheduled Provider: Location:[facility] Appointment Type:URO Nurse Visit Appointment Date:07/19/2025 08:00:00 AM Scheduled Provider:Zac MUNIZ MD Location:[facility] Appointment Type:URO Office Visit [facility] Evaluation noteNo assessment information available [facility] Work Phone: evaluation note* Diagnosis Pronation deformity of both feet- Primary Chronic pain of both knees documented [facility] this encounter [facility]* Diagnosis Onset Date Resolution Status Compression of right ulnar nerve at mult iple levels acuteLumbar radiculopathyacuteLumbosacral stenosis with neurogenic claudication acuteSpondylolisthesis at L4-L5 levelacuteStenosis, cervical spineacuteChronic neck painacuteThyroid mass of unclear etiologyacuteUlnar neuropathy at elbow of right upper extremityacuteArthritis of facet joint of cervical spineacute Arthritis of lumbosacral spineacuteChronic painacuteUlnar neuropathy at elbow of right upper extremityacuteArthritis of facet joint of cervical spineacute Arthritis of lumbosacral spineacuteChronic painacute [facility] Work Phone: Evaluation note* Diagnosis Onset Date Resolution Status Chronic neck pain acuteThyroid mass of unclear etiologyacuteUlnar neuropathy at elbow of right upper extremityacuteArthritis of facet joint of cervical spineacuteArthritis of lumbosacral spineacuteChronic painacuteUlnar neuropathy at elbow of right upper extremityacuteArthritis of facet joint of cervical spineacuteArthritis of lumbosacral spineacuteChronic painacuteArthritis of facet joint of cervical spineacuteArthritis of lumbosacral spineacuteChronic painacute [facility] Work Phone: Evaluation note* Diagnosis Onset Date Resolution Status Chronic neck pain acuteThyroid mass of unclear etiologyacuteUlnar neuropathy at elbow of right upper extremityacuteArthritis of facet joint of cervical spineacuteArthritis of lumbosacral spineacuteChronic painacuteUlnar neuropathy at elbow of right upper extremityacuteArthritis of facet joint of cervical spineacuteArthritis of lumbosacral spineacuteChronic painacuteArthritis of facet joint of cervical spineacuteArthritis of lumbosacral spineacuteChronic painacuteArthritis of facet joint of cervical spineacuteArthritis of lumbosacral spineacuteChronic painacute [facility] Work Phone: Evaluation note* Diagnosis Onset Date Resolution Status Arthritis of facet joint of cervical spi ne acuteArthritis of lumbosacral spineacuteChronic painacuteUlnar neuropathy at elbow of right upper extremityacuteArthritis of facet joint of cervical spine acuteArthritis of lumbosacral spineacuteChronic painacuteArthritis of facet joint of cervical spineacuteArthritis of lumbosacral spineacuteChronic painacute Arthritis of facet joint of cervical spineacuteArthritis of lumbosacral spine acuteChronic painacute [facility] Work Phone: Evaluation note* Diagnosis Onset Date Resolution Status 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Arthritis of facet joint of cervical spineacuteArthritis of lumbosacral spineacuteChronic painacuteArthritis of facet joint of cervical spineacute Arthritis of lumbosacral spineacuteChronic painacuteArthritis of facet joint of cervical spineacuteArthritis of lumbosacral spineacuteChronic painacuteArthritis of facet joint of cervical spineacuteArthritis of lumbosacral spineacuteChronic painacute [facility] Work Phone: Evaluation note* Diagnosis Onset Date Resolution Status Arthritis of facet joint of cervical spi ne acuteArthritis of lumbosacral spineacuteChronic painacuteArthritis of facet joint of cervical spineacuteArthritis of lumbosacral spineacuteChronic painacute Arthritis of facet joint of cervical spineacuteArthritis of lumbosacral spine acuteChronic painacuteArthritis of facet joint of cervical spineacuteArthritis of lumbosacral spineacuteChronic painacuteTremor of right handacuteArthritis of facet joint of cervical spineacuteArthritis of lumbosacral spineacuteChronic painacute [facility] Work Phone: Evaluation note* Diagnosis Onset Date Resolution Status Arthritis of facet joint of cervical spi ne acuteArthritis of lumbosacral spineacuteChronic painacuteArthritis of facet joint of cervical spineacuteArthritis of lumbosacral spineacuteChronic painacute Arthritis of facet joint of cervical spineacuteArthritis of lumbosacral spine acuteChronic painacuteTremor of right handacuteArthritis of facet joint of cervical spineacuteArthritis of lumbosacral spineacuteChronic painacute [facility] Work Phone: Evaluation note* Diagnosis Onset Date Resolution Status Arthritis of facet joint of cervical spi ne acuteArthritis of lumbosacral spineacuteChronic painacuteArthritis of facet joint of cervical spineacuteArthritis of lumbosacral spineacuteChronic painacute Arthritis of facet joint of cervical spineacuteArthritis of lumbosacral spine acuteChronic painacuteTremor of right handacuteArthritis of facet joint of cervical spineacuteArthritis of lumbosacral spineacuteChronic painacuteArthritis of facet joint of cervical spineacuteArthritis of lumbosacral spineacuteChronic painacuteOsteoarthritis of right hipacute [facility] Work Phone: Evaluation note* Diagnosis Onset Date Resolution Status Arthritis of facet joint of cervical spi ne acuteArthritis of lumbosacral spineacuteChronic painacuteArthritis of facet joint of cervical spineacuteArthritis of lumbosacral spineacuteChronic painacute Tremor of right handacuteArthritis of facet joint of cervical spineacute Arthritis of lumbosacral spineacuteChronic painacuteArthritis of facet joint of cervical spineacuteArthritis of lumbosacral spineacuteChronic painacute Osteoarthritis of right hipacute [facility] Work Phone: Evaluation note* Diagnosis Onset Date Resolution Status Arthritis of facet joint of cervical spi ne acuteArthritis of lumbosacral spineacuteChronic painacuteArthritis of facet joint of cervical spineacuteArthritis of lumbosacral spineacuteChronic painacute Tremor of right handacuteArthritis of facet joint of cervical spineacute Arthritis of lumbosacral spineacuteChronic painacuteArthritis of facet joint of cervical spineacuteArthritis of lumbosacral spineacuteChronic painacute Osteoarthritis of right hipacutePrimary osteoarthritis of right hipacute [facility] Work Phone: Evaluation note* Diagnosis Onset Date Resolution Status Arthritis of facet joint of cervical spi ne acuteArthritis of lumbosacral spineacuteChronic painacuteArthritis of facet joint of cervical spineacuteArthritis of lumbosacral spineacuteChronic painacute Tremor of right handacuteArthritis of facet joint of cervical spineacute Arthritis of lumbosacral spineacuteChronic painacuteArthritis of facet joint of cervical spineacuteArthritis of lumbosacral spineacuteChronic painacute Osteoarthritis of right hipacutePrimary osteoarthritis of right hipacuteCough acuteShortness of breathacute [facility] Work Phone: Evaluation note* Diagnosis Intention [...] neoplasm of prostate documented in this encounter [facility]Evaluation [facility]* Diagnosis Acquired inequality of length [...] specified forms of tremor 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[facility]) Unspecified diffuse connective tissue disease Antiphospholipid syndrome (CMS-HCC) Primary hypercoagulable state Class 1 obesity due to excess calories with serious comorbidity and body mass index (BMI) of 33.0 to 33.9 in adult documented in this encounter [facility]* Diagnosis Intention tremor- Primary Essential and other specified forms of tremor Piriformis syndrome of right side documented in this encounter [facility] HealthcareEvaluation note* Diagnosis Intention tremor Essential and other specified forms of tremor Pain due to onychomycosis of toenails of both feet- Primary 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 Exostosis of both feet documented in this encounter [facility] HealthcareEvaluation note* Diagnosis Essential hypertension- Primary Unspecified essential hypertension Hyperlipidemia, unspecified hyperlipidemia type Midline low back pain without sciatica, unspecified chronicity Class 1 obesity due to excess calories with serious comorbidity and body mass index (BMI) of 33.0 to 33.9 in adult 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CMS-HCC) Unspecified diffuse connective tissue disease Antiphospholipid syndrome ([facility]) Primary hypercoagulable state Cubital tunnel syndrome on right Paresthesias Disturbance of skin sensation documented in this encounter [facility]* Diagnosis Medicare annual wellness visit, subsequent- Primary Screening for depression documented in this encounter [facility]* Diagnosis Essential hypertension- Primary Unspecified essential hypertension Class 1 obesity due to excess calories with serious comorbidity and body mass index (BMI) of 33.0 to 33.9 in adult documented in this encounter [facility]* Diagnosis Upper respiratory tract infection, unspecified type- Primary [facility]* Diagnosis Subacute frontal sinusitis- Primary Hoarseness Dysphonia documented in this encounter [facility]* Diagnosis Skin fissure- Primary Other specified disorder of skin Pain due to onychomycosis of toenails of both feet 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 Exostosis of both feet documented in this encounter [facility] HealthcareEvaluation note* Diagnosis 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 Skin fissure Other specified disorder of skin documented in this encounter [facility]* Diagnosis Abrasion of anterior right lower leg, subsequent encounter- Primary Cellulitis of right lower extremity Contusion of right lower leg, subsequent encounter documented in this encounter [facility]* Diagnosis Right leg weakness- Primary Muscle weakness (generalized) Fall, initial encounter Lumbosacral stenosis with neurogenic claudication Perforation of right tympanic membrane documented [facility]* Diagnosis Tenosynovitis of right lower leg- Primary 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 Xerosis cutis Other specified disease of sebaceous glands Su splint, right, initial encounter Contracture of right ankle documented in this encounter [facility]* Diagnosis Xerosis cutis- Primary Other [...] of sebaceous glands documented in this encounter [facility]* Diagnosis Other chest pain- Primary Thoracic region somatic dysfunction Nonallopathic lesion of thoracic region, not elsewhere classified Essential hypertension Unspecified essential hypertension documented in this encounter [facility]* Diagnosis Piriformis syndrome of right [...] in this encounter [facility]* Diagnosis Lumbar radiculopathy- Primary Thoracic or lumbosacral neuritis or radiculitis, unspecified Pain of right lower leg documented in this encounter [facility]* Diagnosis Medicare annual wellness visit, subsequent- Primary Screening for depression documented in this [facility]* Diagnosis Intention tremor- Primary Essential and other specified forms of tremor Polyneuropathy Unspecified hereditary and idiopathic peripheral neuropathy documented in this encounter [facility]* Diagnosis Moderate persistent asthma, unspecified whether complicated- Primary Class 2 severe obesity due to excess calories with serious comorbidity and body mass index (BMI) of35.0 to 35.9 in adult ([facility] documented in this encounter [facility]* Diagnosis Tenosynovitis of right lower leg documented in this encounter [facility] HealthcareEvaluation note* Diagnosis Hospital discharge follow-up- Primary Other follow-up examination Syncope, unspecified syncope type documented in this encounter [facility]* Diagnosis Preop cardiovascular exam Pre-operative cardiovascular examination Syncope, unspecified syncope type Mixed hyperlipidemia Essential (primary) hypertension Unspecified essential hypertension PVC (premature ventricular contraction) Other premature beats Systemic lupus erythematosus, unspecified SLE type, unspecified organ involvement status ([facility]) BMI 34.0-34.9,adult Former smoker Personal history of tobacco use, presenting hazards to health documented in this encounter [facility] Work Phone: Evaluation note* Diagnosis Tenosynovitis of right lower leg- Primary Pain due to onychomycosis of toenails of both feet Xerosis cutis Other specified disease of sebaceous glands Su splint, right, initial encounter 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 documented in this encounter [facility] HealthcareEvaluation note* Diagnosis Syncope, unspecified syncope type- Primary Neuropathy Mononeuritis of unspecified site Hypersomnia with sleep apnea Hypersomnia with sleep apnea, unspecified Rheumatoid arthritis, involving unspecified site, unspecified whether rheumatoid factor present ([facility]) Intention tremor Essential and other specified forms of tremor Cervicogenic headache Headache documented in this encounter [facility] HealthcareHistory general Narrative - Reported* Type Description Date Medical History Polyarthritis Medical Historysystemic disorders of connective tissue in other diseasesMedical Historyharelip cleft palateMedical Historyperforated ear drumsMedical History Undifferentiated connective tissue diseaseMedical Historyinverted T waves when not activeMedical Historybroken ribsMedical Historysquamous cell carcinoma Surgical Historyeye sx removed linda Left (cancer)2014Surgical Historyright shoulder surgerySurgical HistoryLeft knee [id number] Historyscope right knee n3Jrevrlrc HistoryRt shoulder [id number] Historyscope left knee x2, opened h5Ugwkcyda Historyknee scope 3x RTSurgical Historyleft knee replacementSurgical Historyeye surgerySurgical HistoryRT ocivoeythfusw79/27/2019 Surgical Historyleft temporal biopsySurgical Historybilateral CTRSurgical Historyback [id number] HistorySee above [place] [employer] Other History of Present illness Narrative* The [...] medication regimen. He denies medication side effects. -[facility] Synthorx-Mg 250 DO Work Phone: History of Present [...] and treatment. Allergies: Allergies Allergen Reactions Aspirin Buf(Kmhopy-Ocfkgb-Ddt) Other Reaction(s): Other (See Comments), Unknown Abdominal [...] Resource Strain: Low Risk (04/14/2023) Received from [facility], [facility] Overall Financial Resource Strain (CARDIA) Difficulty of Paying Living Expenses: Not hard at all Food Insecurity: No Food Insecurity (09/24/2024) Received from mobile mum Hunger Screening Within the past 12 months we worried whether our food would run out before we got money to buy more.: Never True Within the past 12 months the food we bought just didn't last and we didn't have money to get more.: Never True Transportation Needs: No Transportation Needs (04/14/2023) Received from [facility], [facility] PRAPARE - Transportation Lack of Transportation (Medical): No Lack of Transportation (Non-Medical): No Physical Activity: Inactive (05/01/2024) Received from mobile mum Exercise Vital Sign Days of Exercise per Week: 0 days Minutes of Exercise per Session: 0 min Stress: No Stress Concern Present (04/14/2023) Received from mobile mum, mobile mum [employer] - Occupational Stress Questionnaire Feeling of Stress : Not at all Social Connections: Moderately Integrated (04/14/2023) Received from mobile mum, mobile mum Social Connection and Isolation Panel [NHANES] Frequency of Communication with Friends and Family: Once a week Frequency of Social Gatherings with Friends and Family: Once a week Attends Holiness Services: More than 4 times per year Active Member of Clubs or Organizations: Yes Attends Club or Organization Meetings: Never Marital Status: Intimate Partner Violence: Not on file Housing Stability: Low Risk (04/14/2023) Received from mobile mum, mobile mum Housing Instability Are you worried or concerned [...] longer than right leg of a proximally log-uvmmebl-mrlr ASSESSMENT 1. Acquired inequality of length of [...] right leg the accommodate deformity with proximally ejt-rvqkgmd-ijsz. Will need to sign YADI in [place] [...] and has been using prescribed or recommended dvep-qfi-fvvmcqz cream with improvement. Allergies: Allergies Allergen Reactions Aspirin Buf(Rykfrc-Pizlno-Kwq) Other Reaction(s): Other (See Comments), Unknown Abdominal [...] Strain: Low Risk (04/14/2023) [facility] from [facility] Overall Financial Resource Strain (CARDIA) Difficulty of Paying Living Expenses: Not hard at all Food Insecurity: No Food Insecurity (12/17/2024) Received from [facility] Hunger Screening Within the past 12 months we worried whether our food would run out before we got money to buy more.: Never True Within the past 12 months the food we bought just didn't last and we didn't have money to get more.: Never True Transportation Needs: No Transportation Needs (04/14/2023) [facility] PRAPARE - Transportation Lack of Transportation (Medical): No Lack of Transportation (Non-Medical): No Physical Activity: Inactive (05/01/2024) Received from [facility] Exercise Vital Sign Days of Exercise per Week: 0 days Minutes of Exercise per Session: 0 min Stress: No Stress Concern Present (04/14/2023) Received from [facility] [employer] - Occupational Stress Questionnaire Feeling of Stress : Not at all Social Connections: Moderately Integrated (04/14/2023) Received from mobile mum, mobile mum Social Connection and Isolation Panel [NHANES] Frequency of Communication with Friends and Family: Once a week Frequency of Social Gatherings with Friends and Family: Once a week Attends Holiness Services: More than 4 times per year Active Member of Clubs or Organizations: Yes Attends Club or Organization Meetings: Never Marital Status: Intimate Partner Violence: Not on file Housing Stability: Low Risk (04/14/2023) Received from mobile mum, mobile mum Housing Instability Are you worried or concerned [...] longer than right leg of a proximally swp-besbjjo-gtwg Positive palpation right heel fissure ASSESSMENT 1. [...] in chart if warranted. Patient to pay [id number] Kali Conklin DPM documented [facility] Narrative No data available for this section [facility] Hospital Discharge instructions No data available for this section [facility] Hospital Discharge instructions Additional Instructions Your stone [...] or concerns, do not hesitate to come back.[facility] Work Phone: Hospital Discharge instructions Additional [...] appointment to see your physician in two weeks.[facility] Work Phone: Hospital Discharge instructions Additional [...] primary care provider, you can contact the [facility] orthopaedic clinic and ask about being established for primary care services. If you require specialist follow up, such as with an orthopedic physician, gi technician, urologist, or other medical specialty, you should [...] should first take Tylenol or ibuprofen available mhct-dlr-fwwofmm. Medications, if prescribed to treat pain from [...] ED or if [facility] have [facility] Work Phone: InstructionsNot on filedocumented in [...] Care Everywhere. * Syncope (fainting) Discharge instructions (Portuguese) documented in this encounter[facility] SystemInstructionsNot on file documented in this encounterProMedior Health SystemProgress note No data available for this section [facility] reason for referral (narrative)* Consultation (Routine) - AuthorizedSpecialtyDiagnoses / ProceduresReferred By ContactReferred To ContactRehabilitation Diagnoses Midline low back pain without sciatica, unspecified chronicity Sascha Sutton DO [address], [facility] [address] [facility] [address] [place] [address] Referral IDStatusReasonStart DateExpiration DateVisits RequestedVisits [id number] Specialty Services Required / [facility] SystemMelvin for referral (narrative)No reason for referral information availableOhiohealth [facility] Work Phone: Summary Purpose Family History No Family History Records Found Relationship Condition Age at Onset Recorded Date/T juliane father Myocardial infarction Unknown HypertensionUnknownNot SpecifiedMyocardial infarctionUnknownbrotherBipolar disorderUnknownbrotherDiabetes mellitusUnknownUnknown Family Member Name Dates Details Family history of CABG: Moth er(V17.49, Z82.49) Status:ActiveFamily history of myocardial infarction: Father(V17.3, Z82.49) Status:ActiveFamily history of diabetes mellitus: Brother(V18.0, Z83.3) Status:ActiveLupus: Brother Status:Active Unknown Family Member Name Dates Details Family history of CABG: Moth er(V17.49, Z82.49) Status:ActiveFamily history of myocardial infarction: Father(V17.3, Z82.49) Status:ActiveFamily history of diabetes mellitus: Brother(V18.0, Z83.3) Status:ActiveLupus: Brother Status:Active Unknown Family Member Name Dates Details Family history of CABG: Moth er(V17.49, Z82.49) Status:ActiveFamily history of myocardial infarction: Father(V17.3, Z82.49) Status:ActiveFamily history of diabetes mellitus: Brother(V18.0, Z83.3) Status:ActiveLupus: Brother Status:Active Relationship Condition Age at Onset Recorded Date/T juliane father Myocardial infarction Unknown HypertensionUnknownNot SpecifiedMyocardial infarctionUnknownbrotherBipolar disorderUnknownbrotherDiabetes mellitusUnknownfatherDeceasedUnknownHeart disease UnknownNot SpecifiedDeceasedUnknown Relationship Condition Age at Onset Recorded Date/T juliane father Myocardial infarction Unknown HypertensionUnknownDeceasedUnknownNot SpecifiedMyocardial infarctionUnknown brotherBipolar disorderUnknownbrotherDiabetes mellitusUnknown Relationship Condition Age at Onset Recorded Date/T juliane father Myocardial infarction Unknown HypertensionUnknownmotherMyocardial infarctionUnknownbrotherBipolar disorder UnknownbrotherDiabetes mellitusUnknown Advance Directives No Advanced Directives Records Found [...] Response Recorded Date/ Time Advance Directives Yes March 11th, 2 024 2:03pm Chief Complaint and Reason for [...] stones m54.12 n20.0 f/u emg,mri results sx consultReason for Visit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 Lumbar radiculopathy Lumbosacral stenosis with neurogenic claudication Spondylolisthesis at L4-L5 level Stenosis, cervical spine Chief Complaint M54.50 M48.061 M54.12 R flank pain, hx kidney stones m54.12 n20.0 f/u emg,mri results sx consult M48.02Reason for Visit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 [...] emg,mri results sx consult M48.02 m35.00 z79.899 m15.0Reason for Visit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 [...] M48.02 m35.00 z79.899 m15.0 s/x consult with MRIReason for Visit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 [...] with MRI Ulnar Neuropathy of Upper Right ElbowReason for Visit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 [...] Right Elbow Ulnar Neuropathy of Upper Right ElbowReason for Visit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 [...] Elbow Ulnar Neuropathy of Upper Right Elbow PILLOW FILLER REFF BY DR. MCKENZIE KHALILReason for Visit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 [...] Elbow Ulnar Neuropathy of Upper Right Elbow PILLOW FILLER REFF BY DR. MCKENZIE KHALIL MARÍA LUMBAR FACET MBB L2 L3/DSReason for Visit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 [...] Elbow Ulnar Neuropathy of Upper Right Elbow PILLOW FILLER REFF BY DR. MCKENZIE KHALIL MARÍA LUMBAR FACET MBB L2 L3/DS 2 wk po lesion of ulnar nerveReason for Visit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 [...] Elbow Ulnar Neuropathy of Upper Right Elbow PILLOW FILLER REFF BY DR. MCKENZIE KHALIL MARÍA LUMBAR FACET MBB L2 L3/DS 2 wk po lesion of ulnar nerve F/U AFTER 1ST LUMBAR MBBReason for Visit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 [...] Elbow Ulnar Neuropathy of Upper Right Elbow PILLOW FILLER REFF BY DR. MCKENZIE KHALIL MARÍA LUMBAR FACET MBB L2 L3/DS 2 wk po lesion of ulnar nerve F/U AFTER 1ST LUMBAR MBB MARÍA LUMBAR FACET MBB L3 L5 /VWReason for Visit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 [...] Elbow Ulnar Neuropathy of Upper Right Elbow PILLOW FILLER REFF BY DR. MCKENZIE KHALIL MARÍA LUMBAR FACET MBB L2 L3/DS 2 wk po lesion of ulnar nerve F/U AFTER 1ST LUMBAR MBB MARÍA LUMBAR FACET MBB L3 L5 /VW F/U AFTER 2ND MARÍA LUMBAR FACET MBBReason for VisitChronic neck pain Thyroid mass of unclear etiology [...] Elbow Ulnar Neuropathy of Upper Right Elbow PILLOW FILLER REFF BY DR. 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 MCKENZIE KHALIL MARÍA LUMBAR FACET MBB L2 L3/DS 2 wk po lesion of ulnar nerve F/U AFTER 1ST LUMBAR MBB MARÍA LUMBAR FACET MBB L3 L5 /VW F/U AFTER 2ND MARÍA LUMBAR FACET MBB right thyroid nodule MARÍA LUMBAR FACET RFA L4 L5/CJ F/U AFTER MARÍA LUMB RFA M35.00 Z79.899 M15.0 CERVICAL MBB C3 C4 LEFT/CJReason for VisitArthritis of facet joint of cervical spine Arthritis [...] MBB C3 C4 LEFT/CJ F/U LEFT CERVICAL MBBReason for VisitUlnar neuropathy at elbow of right upper extremity [...] C3 C4/DS F/U AFTER 2ND LEFT CERVICAL MBBReason for VisitArthritis of facet joint of cervical spine Arthritis [...] MBB LEFT CERVICAL FACET RFA C3 C4 /VWReason for VisitArthritis of facet joint of cervical spine Arthritis [...] C3 C4 /VW F/U LEFT CERVICAL FACET RFAReason for VisitArthritis of facet joint of cervical spine Arthritis [...] DR MCLEOD M25.551 - Pain in right hipReason for VisitArthritis of facet joint of cervical spine Arthritis [...] in right hip *[place] INTRA-ARTICULAR HIP JOINTReason for VisitArthritis of facet joint of cervical spine Arthritis [...] INTRA-ARTICULAR HIP JOINT cough R05.9 - Cough, unspecifiedReason for VisitArthritis of facet joint of cervical spine Arthritis [...] :04am Primary osteoarthritis of right hip Nove 2023 8:46am Greater trochanteric bursitis of right [...] Date Primary osteoarthritis of right hip Nove [facility] 2023 8:46am Greater trochanteric bursitis of right h ip November 09, 2024 10:51am Primary osteoarthritis of right hip [facility] 2023 10:51am Arthritis of facet joint [...] Admit Date [facility]23 8:46am Greater trochanteric bursitis of right h ip November 09, 2024 10:51am Primary osteoarthritis of right hip [facility] 2023 10:51am Arthritis of facet joint [...] 2025 9:00am Iliotibial band syndrome, right leg [facility] 2024 9:00am Primary osteoarthritis of right hip [facility] 2024 9:00am Atypical chest pain February 15, [...] of right hip February 21, 025 7:52am Arthritis of facet joint of [...] 07, 2025 7:34am Chief Complaint Admit Date June 25, 2025 10: 27am R55 G62.9 [...] region without neurogenic claudication (M48.061) Referral Organization [facility] Referring Provider First Name Мария Referring Provider Last Name David Referring Provider Specialty Nurse Pool hernández Referred Organization [facility] Referred Provider GregoryPrimo Referred Address [address] [place] [place], [place],[address] Referred Provider Specialty Neurology Referral Priority Routine [...] section and content) DATE CREATED AUTHOR 05/09/2018 [facility] DATE CREATED AUTHOR AUTHOR'S ORGANIZ ATION 05/10/2018 [facility] DATE CREATED AUTHOR AUTHOR'S ORGANIZ ATION 03/29/2023 [facility] DATE CREATED AUTHOR AUTHOR'S ORGANIZ ATION 04/01/2023 [facility] DATE CREATED AUTHOR AUTHOR'S ORGANIZ ATION 04/05/2023 [facility] DATE CREATED AUTHOR AUTHOR'S ORGANIZ ATION 12/18/2023 [facility] DATE CREATED AUTHOR AUTHOR'S ORGANIZ ATION 02/20/2024 [facility] DATE CREATED AUTHOR AUTHOR'S ORGANIZ ATION 06/13/2025 [facility] DATE CREATED AUTHOR AUTHOR'S ORGANIZ ATION 08/25/2025 [facility] DATE CREATED AUTHOR AUTHOR'S ORGANIZ ATION 08/26/2025 [facility] DATE CREATED AUTHOR AUTHOR'S ORGANIZ ATION 08/29/2025 [facility] DATE CREATED AUTHOR AUTHOR'S ORGANIZ ATION 09/08/2025 [facility] [employer] Engineer Teams (unrecognized sec tion and content) Team [...] Start: July 03, 2024 End: July 03, 2024Romel Davis MDAttending ProviderActiveStart: July 03, 2024 End: July 03, 2024 [...] Active Start: August 29, 2024 End: August 29Michell Hadley IIending ProviderActiveStart: August 29, 2024 End: August 29, 2024 [...] Start: August 29, 2024 Jaime Murcia II, MDAttending ProviderActiveStart: August 29, 2024 Team Status: Inactive Member Role Status Dates Sascha Sutton , DO Primary Care Provider Active Start: May 28, 2024 End: May 28Mahendra Haywood ProviderActiveStart: May 28, 2024 End: May 28, 2024 Team Status: Inactive Member Role Status Dates Carlos Eden DO Attending Provider Active S tart: May 30, 2024 End: May 30, 2024 Team Status: Active Member Role Status Dates Sascha Sutton DO Primary Care Provider Active Start: May 16, 2024 Mahendra Herron ProviderActiveStart: May 16, 2024 Team Status: Inactive Member Role Status Dates Sascha Sutton DO Primary Care Provider Active Start: May 16, 2024 End: May 16Michell Haywoodending ProviderActiveStart: May 16, 2024 End: May 16, 2024 Team Status: Inactive Member Role Status Dates Sascha Sutton DO Primary Care Provider Active Mahendra Ordaz ProviderActive Team Status: Active Member Role Status Dates Sascha Sutton , DO Primary Care Provider Active Team Status: Inactive Member Role Status Dates Sascha Sutton DO Primary Care Provider Active Christine Sanchez NP-CAttenyue ProviderActive Team Status: Inactive Member Role Status Dates Sascha Sutton DO Primary Care Provider Active Iwona Madrigal ProviderActive Team Status: Inactive Member Role Status Dates Sascha Sutton DO Primary Care Provider Active Melanie Trujillo DOAttmono ProviderActive Team Status: Inactive Member Role Status Dates Sascha Sutton DO Primary Care Provider, Marcela pfeiffer Active Team Status: Inactive Member Role Status Dates Sascha Sutton , DO Primary Care Provider Active Juan Denton Jr ProviderActive Team Status: Inactive Member Role Status Dates Sascha Sutton , DO Primary Care Provider Active Igor Benson ProviderActive Team Status: Inactive Member Role Status Dates Sascha Sutton , DO Primary Care Provider Active Mahendra Randhawa ProviderActive Team Status: Inactive Member Role Status Dates Sascha Sutton DO Primary Care Provider Active Christine Sanchez NP-CAttending ProviderActivePaTorito Mariano ProviderActive Team Status: Inactive Member Role Status Dates Sascha Sutton DO Primary Care Provider Active Michell Mckeonending ProviderActive Team Status: Inactive Member Role Status Dates Sascha Sutton DO Primary Care Provider Active Start: September 12, 2023 End: September 12, 2023MaMahendra Oleary ProviderActiveStart: September 12, 2023 End: September 12, 2023 Team Status: Inactive Member Role Status Dates Sascha Sutton DO Primary Care Provider Active Start: October 20, 2023 End: October 20Mahendra Bentley ProviderActiveStart: October 20, 2023 End: October 20, 2023 Team Status: Inactive Member Role Status Dates Sascha Sutton DO Primary Care Provider Active Start: December 08, 2023 End: December 08, 2023MaMahendra Oleary ProviderActiveStart: December 08, 2023 End: December 08, 2023 Team Status: Inactive Member Role Status Dates Sascha Sutton DO Primary Care Provide r, Attending Provider Active Start: December 15, 2023 End: December 15, 2023Team MemberRelationshipSpecialtyStart DateEnd Date Sascha Sutton MD [address] [facility], [address] [place] [id number] [facility]/28/23 Team Status: Inactive Member Role Status Dates Sascha Sutton DO Primary Care Provider Active Start: December 30, 2023 End: December 30, 2023Мария Hernandez NP-Andreading ProviderActiveStart: December 30, 2023 End: December 30, 2023 Team Status: Inactive Member Role Status Dates Sascha Sutton DO Primary Care Provider Active Start: January 02, 2024 End: January 03, 2024ThJuan Fregoso Jr ProviderActiveStart: January 02, 2024 End: January 03, 2024 Team Status: Inactive Member Role Status Dates Sascha Sutton , DO Primary Care Provider Active Start: January 10, 2024 End: January 10, 2024Мария Hernandez PILLOW FILLER-CAttending ProviderActiveStart: January 10, 2024 End: January 10, 2024 Team Status: Inactive Member Role Status Dates Sascha Sutton , DO Primary Care Provider Active Start: January 11, 2024 End: January 11blane Muniz MDAttending ProviderActiveStart: January 11, 2024 End: January 11, 2024 Team Status: Inactive Member Role Status Dates Sascha Sutton , DO Primary Care Provider Active Start: February 09, 2024 End: February 09, 2024Мария Hernandez PILLOW FILLER-CAttending ProviderActiveStart: February 09, 2024 End: February 09, 2024 Team Status: Inactive Member Role Status Dates Sascha Sutton , DO Primary Care Provider Active Start: February 21, 2024 End: February 20rusty Khalil MDAttending ProviderActiveStart: February 21, 2024 End: February 21, 2024 Team Status: Inactive Member Role Status Dates Sascha Sutton , DO Primary Care Provider Active Start: March 08, 2024 End: March 08Michell Bennettending ProviderActiveStart: March 08, 2024 End: March 08, 2024 Team Status: Inactive Member Role Status Dates Sascha Sutton , DO Primary Care Provider Active Start: March 13, 2024 End: March 13, 2024Romel Davis MDAttending ProviderActiveStart: March 13, 2024 End: March 13, 2024 Team Status: Inactive Member Role Status Dates Sascha Sutton DO Primary Care Provider Active Start: March 29, 2024 End: March 29Michell Bennettending ProviderActiveStart: March 29, 2024 End: March 29, 2024 Team Status: Inactive Member Role Status Dates Sascha Sutton , DO Primary Care Provider Active Start: April 02, 2024 End: April 02rusty Khalil MDAttending ProviderActiveStart: April 02, 2024 End: April 02, 2024 Team Status: Inactive Member Role Status Dates Sascha Sutton DO Primary Care Provider Active Start: April 09, 2024 End: April 09Michell Bennettending ProviderActiveStart: April 09, 2024 End: April 09, 2024 Team Status: Inactive Member Role Status Dates Sascha Sutton DO Primary Care Provider Active Start: April 11, 2024 End: April 11Michell Haywoodending ProviderActiveStart: April 11, 2024 End: April 11rusty Khalil MDReferring ProviderActiveStart: April 11, 2024 End: April 11, 2024 Team Status: Active Member Role Status Dates Sascha Sutton DO Primary Care Provider Active Start: April 09, 2024 Mahendra Hilliard Provider, Other ProviderActiveStart: April 09, 2024 Team Status: Inactive Member Role Status Dates Sascha Sutton DO Primary Care Provider Active Start: April 18, 2024 End: April 18corrina Mcleod MDAttending ProviderActiveStart: April 18, 2024 End: April 18, 2024 Team Status: Active Member Role Status Dates Sascha Sutton DO Primary Care Provider Active Start: April 18, 2024 Mahendra Herron ProviderActiveStart: April 18, 2024 Team Status: Inactive Member Role Status Dates Sascha Sutton DO Primary Care Provider Active Start: April 24, 2024 End: April 24rusty Khalil MDAttending ProviderActiveStart: April 24, 2024 End: April 24, 2024 Team Status: Inactive Member Role Status Dates Sascha Sutton DO Primary Care Provider Active Start: May 02, 2024 End: May 02Michell Haywoodending ProviderActiveStart: May 02, 2024 End: May 02, 2024 Team Status: Active Member Role Status Dates Edenilson Mcleod MD Primary Care Provide r, Attending Provider Active Start: September 05, 2024 Team Status: Active Member Role Status Dates Edenilson Mcleod MD Primary Care Provider Active Start: September 06, 2024 Carlos Owusu DOAttending ProviderActiveStart: September 06, 2024 Team Status: Inactive Member Role Status Dates Edenilson Mcleod MD Primary Care Provider Active Start: September 19, 2024 End: September 19manddillan Fonseca , DANNINAtreinaldo ProviderActiveStart: September 19, 2024 End: September 19, 2024 Team Status: Active Member Role Status Dates Edenilson Mcleod MD Primary Care Provider Active Start: September 19, 2024 Myriam Fonseca , DANNINAtreinaldo ProviderActiveStart: September 19, 2024 Team Status: Inactive Member Role Status Dates Sascha Sutton DO Primary Care Provider Active Start: October 10, 2024 End: October 10, 2024Mattcourtney Davis MDAttmono ProviderActiveStart: October 10, 2024 End: October 10, 2024Team MemberRelationshipSpecialtyStart DateEnd Date Sascha Sutton MD [address], [place] [address] PCP - GeneralFamily Medicine12/28/23 Mckenzie Khalil MD [address] [place] [address] Referring PhysicianNeurosurgery06/13/24 Carlos Eden DO [address] [place] [address] Otolaryngology06/13/24Team MemberRelationshipSpecialtyStart DateEnd Date Sascha Sutton MD [address] [place] [address] PCP - Generalmily Medicine12/28/23 Mckenzie Khalil MD [address] [place] [address] Referring PhysicianNeurosurgery06/13/24 Carlos Eden DO [address] [place] [address] Otolaryngology06/13/24Team MemberRelationshipSpecialtyStart DateEnd Date Sascha Sutton MD [address], [place] [address] [facility]12/28/23 Mckenzie Khalil MD [address], [place] [address] Referring PhysicianNeurosurgery06/13/24 Carlos Eden DO [address] [place] [address] Otolaryngology06/13/24Team MemberRelationshipSpecialtyStart DateEnd Date Sascha Sutton MD [address], [place] [address] PCP - [facility] Medicine12/28/23 Mckenzie Khalil MD [address] [place] [address] [address] [place] [address] Referring PhysicianNeurosurgery06/13/24 Carlos Eden DO [address] [place] [address] Otolaryngology06/13/24Team MemberRelationshipSpecialtyStart DateEnd Date Sascha Sutton MD [address], [place] [address] [facility]12/28/23 Mckenzie Khalil MD [address] [place] [address], [address] [place] [address] Referring PhysicianNeurosurgery06/13/24 Carlos Eden DO [address] [facility] [place] [address] Otolaryngology06/13/24Team MemberRelationshipSpecialtyStart DateEnd Date Sascha Sutton DO [address], [facility] [place] [address] PCP - [facility] Klgdpthn08/3/22 Team Status: Inactive Member Role Status Dates Jaime Murcia II, MD Attending Provider Active Start: October 17, 2024 End: October 17Kwame Chacko Care ProviderActiveStart: October 17, 2024 End: October 17, 2024 Team Status: Inactive Member Role Status Dates Sascha Sutton DO Primary Care Provider Active Start: November 05, 2024 End: November 05Mahendra Hadley II ProviderActiveStart: November 05, 2024 End: November 05, 2024 Team Status: Inactive Member Role Status Dates Sascha Sutton DO Primary Care Provider Active Start: November 09, 2024 End: November 09Mahendra [place] II ProviderActiveStart: November 09, 2024 End: November 09, 2024 Team Status: Inactive Member Role Status Dates Edenilson Mcleod MD Attending Provider Active Sta rt: November 26, 2024 End: November 26, 2024Kwame Moses Care ProviderActiveStart: November 26, 2024 End: November 26, 2024 Team Status: Active Member Role Status Dates Sascha Sutton DO Primary Care Provider Active Start: November 26, 2024 Mahendra Claire II ProviderActiveStart: November 26, 2024 Team MemberRelationshipSpecialtyStart DateEnd Date Sascha Sutton MD [address], [place] [address] [facility]12/28/23 Mckenzie Khalil MD [address], [place] [address] Referring PhysicianNeurormayo clinic [place] [facility]y06/13/24 Carlos Eden DO [address] [place] [address] Otolaryngology06/13/24 Team Status: Inactive Member Role Status Dates Sascha Sutton DO Primary Care Provide r, Attending Provider Active Start: December 07, 2024 End: December 07, 2024 Team Status: Active Member Role Status Dates Sascha Sutton DO Primary Care Provider Active Start: December 07, 2024 Mahendra Claire II ProviderActiveStart: December 07, 2024 Team MemberRelationshipSpecialtyStart DateEnd Date Sascha Sutton MD [address], [place] [address] PCP - [facility] Medicine12/28/23 Mckenzie Khalil MD [address], [place] [address] Referring PhysicianNeurosurgery06/13/24 Carlos Eden DO [address] [place] [address] Otolaryngology06/13/24Team MemberRelationshipSpecialtyStart DateEnd Date Sascha Sutton MD [address], [place] [address] PCP - GeneralFamily Medicine12/28/23 Mckenzie Khalil MD [address], [place] [address] Referring PhysicianNeurorgery06/13/24 Cralos Eden DO [address] [place] [address] Otolaryngology06/13/24Team MemberRelationshipSpecialtyStart DateEnd Date Sascha Sutton DO [address], [place] [address] PCP - Generalmily Swguuwfb76/3/22Team MemberRelationshipSpecialtyStart DateEnd Date Sascha Sutton MD [address], [place] [address] PCP - GeneralFamily Medicine12/28/23 Mckenzie Khalil MD [address], [place] [address] Referring PhysicianNeurosurgery06/13/24 Carlos Eden DO [address] [place] [address] Otolaryngology06/13/24Team MemberRelationshipSpecialtyStart DateEnd Date Sascha Sutton MD [address], [place] [address] PCP - GeneralFamily Medicine12/28/23 Mckenzie Khalil MD [address] [place] [address], [address] [place] [address] Referring PhysicianNeurosurgery06/13/24 Carlos Eden DO [address] [facility] [place] [address] Otolaryngology06/13/24Team MemberRelationshipSpecialtyStart DateEnd Date Sascha Sutton DO [address], [place] [address] [facility] - [facility] Trohektq89/3/22Team MemberRelationshipSpecialtyStart DateEnd Date Sascha Sutton DO [address], [place] [address] PCP - GeneralFamily Rcwtpyyb03/3/22Team MemberRelationshipSpecialtyStart DateEnd Date Sascha Sutton DO [address], [place] [address] PCP - GeneralFamily Ifjunsqv57/3/22Team MemberRelationshipSpecialtyStart DateEnd Date Sascha Sutton DO [address], [place] [address] [facility] - [facility] Pbxvdeyh13/3/22Team MemberRelationshipSpecialtyStart DateEnd Date CynthiacierraSaschaDO [address], [place] [address] PCP - [facility]09/23/22Team MemberRelationshipSpecialtyStart DateEnd Date Herman Sascha TeaganDO [address], [place] [address] PCP - [facility]09/23/22Team MemberRelationshipSpecialtyStart DateEnd Date Sascha Sutton DO [address], [place] [address] PCP - [facility]09/23/22Team MemberRelationshipSpecialtyStart DateEnd Date Sascha Sutton DO [address], [place] [address] PCP - [facility]09/23/22Team MemberRelationshipSpecialtyStart DateEnd Date Sascha Sutton MD [address], [place] [address] PCP - Generalmi Medicine12/28/23 Mckenzie Khalil MD [address] [place] [address], [address] [place] [address] Referring PhysicianNeurosurgery06/13/24 Carlos Eden, DO [address] [place] [address] Otolaryngology06/13/24Team MemberRelationshipSpecialtyStart DateEnd Date Sascha Sutton MD [address] [place] [address] [facility]12/28/23 Mckenzie Khalil MD [address] [place] [address] [address] [place] [address] Referring PhysicianNeurosurgery06/13/24 Carlos Eden DO [address] [place] [address] Otolaryngology06/13/24 Team Status: Active Member Role Status Dates Sascha Sutton DO Primary Care Provider Active Start: January 11, 2025 Mahendra Claire II ProviderActiveStart: January 11, 2025 Team Status: Inactive Member Role Status Dates Sascha Sutton DO Primary Care Provider Active Start: January 12, 2025 End: January 12Purvi Bethea ProviderActiveStart: January 12, 2025 End: January 12, 2025 Team Status: Inactive Member Role Status Dates Sascha Sutton DO Primary Care Provider Active Start: January 12, 2025 End: January 12, 2025MATT [facility] Hospitalelisa ProviderActiveStart: January 12, 2025 End: January 12, 2025 Team Status: Inactive Member Role Status Dates Sascha Sutton DO Primary Care Provider Active Start: January 14, 2025 End: January 14, 2025Matthew Davis , MDAttending ProviderActiveStart: January 14, 2025 End: January 14, 2025Team MemberRelationshipSpecialtyStart DateEnd Date Sascha Sutton MD [address], [place] [address] [facility]12/28/23 Mckenzie Khalil MD [address] [place] [address], [address] [address] Referring PhysicianNeurosurgery06/13/24 Carlos Eden DO [address] [facility] [place] [address] Otolaryngology06/13/24Team MemberRelationshipSpecialtyStart DateEnd Date Sascha Sutton DO [address], [place] [address] PCP - [facility]09/23/22Team MemberRelationshipSpecialtyStart DateEnd Date Sascha Sutton DO [address], [place] [address] PCP - [facility] Jyxoocvb65/3/22Team MemberRelationshipSpecialtyStart DateEnd Date Sascha Sutton MD [address], [place] [address] [facility] - [facility]01/30/25 Mckenzie Khalil MD [address] [place] [address], [address] [address] Referring PhysicianNeurosurgery06/13/24 Carlos Eden DO [address] [facility] [place] [address] Otolaryngology06/13/24Team MemberRelationshipSpecialtyStart DateEnd Date Sascha Sutton MD [address], [facility] [address] [facility] - [facility]01/30/25 Mckenzie Khalil MD [address] [place] [address] [address] [place] [address] Referring PhysicianNeurosurgery06/13/24 Carlos Eden DO [address] [facility] [address] Otolaryngology06/13/24 Team Status: Active Member Role Status Dates Sascha Sutton DO Primary Care Provider Active Start: January 24, 2025 Jaime Murcia II, MDAttending ProviderActiveStart: January 24, 2025 Team Status: Inactive Member Role Status Dates Sascha Sutton DO Primary Care Provide r, Attending Provider Active Start: January 25, 2025 End: January 25, 2025Team MemberRelationshipSpecialtyStart DateEnd Date Sascha Sutton MD [address], [facility] [address] PCP - [facility] Medicine01/30/25 Mckenzie Khalil MD [address] [place] [address] [address] [place] [address] Referring PhysicianNeurosurgery06/13/24 Carlos Eden, DO [address] [place] [address] Otolaryngology06/13/24Team MemberRelationshipSpecialtyStart DateEnd Date Sascha Sutton MD [address] [facility], [facility] [place] [address] PCP - [facility]01/30/25 Mckenzie Khalil MD [address] [place] [address] [address] [place] [address] Referring PhysicianNeurosurgery06/13/24 Carlos Eden DO [address] [place] [place] [address] Otolaryngology06/13/24 Team Status: Inactive Member Role Status Dates Sascha Sutton DO Primary Care Provider Active Start: February 08, 2025 End: February 08, 2025Jaime Murcia II, MDAttending ProviderActiveStart: February 08, 2025 End: February 08, 2025 Team Status: Active Member Role Status Dates Sascha Sutton DO Primary Care Provider Active Start: February 15, 2025 Juan Ewing ProviderActiveStart: February 15, 2025 Sugar Valles Provider, Attending ProviderActiveStart: February 15, 2025 Team Status: Inactive Member Role Status Dates Sascha Sutton DO Primary Care Provider Active Start: February 15, 2025 End: February 16Juan Hewitt ProviderActiveStart: February 15, 2025 End: February 16, 2025Sugar Valles ProviderActiveStart: February 15, 2025 End: February 16, 2025MoMahendra Murray ProviderActiveStart: February 15, 2025 End: February 16, 2025Rita Matt MDOther ProviderActiveStart: February 15, 2025 End: February 16, 2025 Team Status: Inactive Member Role Status Dates Sascha Sutton DO Primary Care Provider Active Start: February 21, 2025 End: February 21, 2025ThMahendra Haywood ProviderActiveStart: February 21, 2025 End: February 21, 2025Team MemberRelationshipSpecialtyStart DateEnd Date Sascha Sutton MD [address], [facility] [place] [address] PCP - [facility]01/30/25 Mckenzie Khalil MD [address] [place] [address] Referring PhysicianNeurosurgery06/13/24 Carlos Eden DO [address] [place] [address] Otolaryngology06/13/24Team MemberRelationshipSpecialtyStart DateEnd Date Sascha Sutton MD [address], [facility] [place] [address] PCP - [facility]01/30/25 Mckenzie Khalil MD [address] [place] [address], [address] [address] Referring PhysicianNeurosurgery06/13/24 Carlos Eden DO [address] [place] [address] Otolaryngology06/13/24Team MemberRelationshipSpecialtyStart DateEnd Date Sascha Sutton DO [address], [facility] [place] [place] [address] [facility] Kkwaqyjc73/3/22 Team Status: Inactive Member Role Status Dates Sascha Sutton DO Primary Care Provider Active Start: January 24, 2025 End: January 24, 2025Robaleksandra Murcia II, MDAttending ProviderActiveStart: January 24, 2025 End: January 24, 2025Team MemberRelationshipSpecialtyStart DateEnd Date Sascha Sutton DO [address], [facility] [place] [place] [address] PCP - [facility] Fhzgvatr82/3/22Team MemberRelationshipSpecialtyStart DateEnd Date Sascha Sutton MD [address], [facility] [place] [place] [address] [facility] - [facility]01/30/25 Mckenzie Khalil MD [address] [place] [address], [address] [place] [address] Referring PhysicianNeurosurgery06/13/24 Carlos Eden DO [address] [place] [address] Otolaryngology06/13/24Team MemberRelationshipSpecialtyStart DateEnd Date Sascha Sutton MD [address], [facility] [place] [place] [address] [facility] - [facility]01/30/25 Mckenzie Khalil MD [address] [place] [address], [address] [address] Referring PhysicianNeurosurgery06/13/24 Carlos Eden DO [address] [facility] [place] [address] Otolaryngology06/13/24Team MemberRelationshipSpecialtyStart DateEnd Date Sascha Sutton MD [address] [facility], [facility] [place] [address] PCP - [facility] Medicine01/30/25 Mckenzie Khalil MD [address] [place] [address] Referring PhysicianNeurosurgery06/13/24 Carlos Eden, [address] [place] [address] Otolaryngology06/13/24 Team Status: Active Member Role Status Dates Sascha Sutton DO Primary Care Provider Active Start: March 13, 2025 Mahendra Herron ProviderActiveStart: March 13, 2025 Team Status: Active Member Role Status Dates Sascha Sutton DO Primary Care Provider Active Start: March 26, 2025 Mahendra Claire II ProviderActiveStart: March 26, 2025 Team Status: Inactive Member Role Status Dates Sascha Sutton DO Primary Care Provider Active Start: March 27, 2025 End: March 27, 2025Mahendra Herron ProviderActiveStart: March 27, 2025 End: March 27, 2025 Team Status: Active Member Role Status Dates Sascha CynthiaDO cierra Primary Care Provider Active Start: April 09, 2025 Jaime Murcia II, MDAttending ProviderActiveStart: April 09, 2025 Team Status: Inactive Member Role Status Dates Sascha Cynthiacierra , DO Primary Care Provider Active Start: April 10, 2025 End: April 10, 2025Robaleksandra Murcia II, MDAttending ProviderActiveStart: April 10, 2025 End: April 10, 2025 Team Status: Active Member Role Status Dates Sascha Cynthiacierra , DO Primary Care Provider Active Start: April 18, 2025 Jaime Murcia II, MDAttending ProviderActiveStart: April 18, 2025 Team Status: Inactive Member Role Status Dates Sascha CynthiaDO cierra Primary Care Provider Active Start: April 18, 2025 End: April 18, 2025Romel Davis MDAttending ProviderActiveStart: April 18, 2025 End: April 18, 2025 Team Status: Inactive Member Role Status Dates Sascha Cynthiacierra Primary Care Provider Active Start: May 01, 2025 End: May 01, 2025Christine Sanchez NP-CAttending ProviderActiveStart: May 01, 2025 End: May 01, 2025 Team Status: Active Member Role Status Dates Sascha Cnythiacierra , DO Primary Care Provider Active Start: May 01, 2025 Christine Sanchez NP-COther ProviderActiveStart: May 01, 2025 Dante Simmons MDAttending ProviderActiveStart: May 01, 2025 Team MemberRelationshipSpecialtyStart DateEnd Date Sascha Sutton MD [address] [facility], [place] [address] [facility] - [facility]01/30/25 Mckenzie Khalil MD [address] [place] [address], [address] [place] [address] Referring PhysicianNeurosurgery06/13/24 Carlos Eden DO [address] [place] [address] Otolaryngology06/13/24Team MemberRelationshipSpecialtyStart DateEnd Date Sascha Sutton DO [address], [facility] [place] [address] PCP - Generalmily Gkslfsvo51/3/22Team MemberRelationshipSpecialtyStart DateEnd Date Sascha Sutton DO [address], [facility] [place] [address] PCP - GeneralFamily Xuucayes90/3/22Team MemberRelationshipSpecialtyStart DateEnd Date Sascha Sutton DO PCP - General03/30/23 Team Status: Inactive Member Role Status Dates Sascha Sutton DO Primary Care Provider Active Start: June 25, 2025 End: June 25, 2025W Prasad Trujillo DOAttending ProviderActiveStart: June 25, 2025 End: June 25, 2025Team MemberRelationshipSpecialtyStart DateEnd Date Sascha Sutton MD [address], [facility] [place] [address] PCP - GeneralFamily Medicine01/30/25 Mckenzie Khalil MD [address] [place] [address] [address] [place] [address] Referring PhysicianNeurosurgery06/13/24 Calros Eden DO [address] [place] [address] Otolaryngology06/13/24Team MemberRelationshipSpecialtyStart DateEnd Date Sascha Sutton MD [address] [place] [address] PCP - [facility] Medicine01/30/25 Mckenzie Khalil MD [address] [place] [address], [facility] [address] [place] [address] Referring PhysicianNeurosurgery06/13/24 Carlos Eden DO [address] [place] [address] Otolaryngology06/13/24Team MemberRelationshipSpecialtyStart DateEnd Date Sascha Sutton MD [address], [facility] [place] [address] PCP - [facility]01/30/25 Mckenzie Khalil MD [address] [place] [id number] Referring PhysicianNeurosurgery06/13/24 Carlos Eden DO [address] [place] [place] [address] Otolaryngology06/13/24 Team Status: Active Member Role Status Dates Sascha Sutton DO Primary Care Provider Active Start: July 17, 2025 Shabnam Connell PILLOW FILLER-CAttending ProviderActiveStart: July 17, 2025 Team Status: Inactive Member Role Status Dates Sascha Lazcanong , DO Primary Care Provider Active Start: July 17, 2025 End: July 17, 2025Fesoren Connell , PILLOW FILLER-CAttending ProviderActiveStart: July 17, 2025 End: July 17, 2025 Team Status: Inactive Member Role Status Dates Sascha Sutton , DO Primary Care Provider Active Start: July 24, 2025 End: July 24, 2025W Prasad Trujillo , DOAttending ProviderActiveStart: July 24, 2025 End: July 24, 2025Mobrigitte Troy , MDReferring ProviderActiveStart: July 24, 2025 End: July 24, 2025 Team Status: Inactive Member Role Status Dates Sascha Lazcanong , DO Primary Care Provider Active Start: August 07, 2025 End: August 07, 2025Jolatrice Sanchez , PILLOW FILLER-CAttending ProviderActiveStart: August 07, 2025 End: August 07, 2025 Team Status: Inactive Member Role Status Dates Sascha Lazcanong , DO Primary Care Provider Active Start: August 15, 2025 End: August 15, 2025Thcorrina Mcleod , MDAttending ProviderActiveStart: August 15, 2025 End: August 15, 2025 [...] for Visit (unrecogniz ed section and content) ReasonCommentsFoot OrthoticsReasonCommentsToenail CareNon dm nail careReason CommentsFollow-upWent to pt for hip pain, says one leg is shorterReasonComments Thyroid Nodule6 month johnathan USReasonCommentsHypertensionHyperlipidemiaSinus-3 daysReasonCommentsMAWReasonCommentsMed RefillReasonCommentsHypertension HyperlipidemiaReasonCommentsCoughReasonCommentsCoughLost voiceReasonCommentsFoot OrthoticsOrthotic pick upReasonCommentsFollow-upER--from urgent care to [facility], pain level 4ReasonCommentsDizzinessHeadacheFallReasonCommentsFoot PainRT FT PAIN ReasonCommentsFollow-upFU RT footReasonCommentsFollow-upRt edl checkReason CommentstcmPinched nerve or pulled muscle chest--[facility] 02/16ReasonCommentsPain in the right su/swollen foot.tinglingReasonCommentsmawReasonCommentsPFT results ReasonCommentsTBH/ FaintingReasonCommentsNew Patient VisitPatient here to establish care, recently in [facility] ER 06.07.25 for syncope.Reason CommentsToenail Care FOR RECORDS PERTAINING TO PATIENTS WHO [...] BE BASED ON THE PRIMARY CLINICAL RECORDS. [employer] provides no warranty or guarantee of the accuracy or completeness of information in this document.
[2025-09-12] MEDS: LEVOFLOXACIN 500 MG/100 ML-D5W PREMIX 100 MG IV (10:28)
--- NOTE | 2025-09-12 11:36 | P.URON_ITS ---
Urology Surgery Operative Note Operative Note Procedure Date: 09/12/25 Time Out Performed: yes Pre-op Diagnosis: BPH with LUTS refractory to medications Post-op Diagnosis: same as pre-op Procedures performed: 1. Cystoscopy. 2. Transurethral resection of the prostate. Anesthesia: GETA Primary Surgeon: Zac Iglesias Complications: None Estimated blood loss (mL): 20 Findings: Trilobar obstruction. Capacious lateral lobes. Specimens: Prostate chips Drains: 22 Austrian three-way coud? Gregory catheter in the bladder taped to traction and CBI Indications for Procedures: This gentleman has significant bladder outlet obstructive symptoms despite taking maximal medications in the form of alpha blockade and 5 alpha reductase inhibition. Endoscopically he is obstructed in a trilobar fashion. He also has bladder damage. He is strongly desirous for TURP. He has signed an informed consent after risks were explained. Some of these risks include bleeding, infection, anesthesia, retrograde ejaculation, urinary incontinence both temporary and permanent, erectile dysfunction and possible need for further operations to name a few. Detailed description of Procedure: The patient was brought to the operating room and placed on the operating room table in the supine position. SCDs were placed on the lower extremities and turned on and functioning during the entire case. Timeout was done by all parties in the room. We all agreed upon the patient's identification and the planned procedures for this patient. Genn. anesthesia was then administered. The patient was then repositioned into the modified dorsal lithotomy position. All pressure points were satisfactorily padded. Genitalia were sterilely prepped and draped in usual fashion. I started by passing a 26 Austrian Olympus resectoscope with a standard bipolar loop electrode per urethra and into the bladder. Ureteral orifices were marked with a loop electrode. I then started on the median lobe and uniformly resected this down to the bladder neck level. I then resected posteriorly from the bladder neck to the veru. The capacious left lateral lobe was then taken down to the capsular level as well as the right lateral lobe and the capacious anterior tissue. I then opened up the apex. The resection bed was coagulated with the loop electrode. The Silent Circlek evacuator was used to get all prostate chips out of the bladder and these were sent for permanent sections. Upon completion, with the scope at the apex, the prostatic urethra and bladder neck were now wide open. There was no bleeding. No chips were remaining in the bladder. The scope was then removed. I then placed a 22 Austrian three-way coud? in the bladder. It was manually irrigated to verify correct placement. 30 cc of fluid was placed in the balloon. It was taped to traction and CBI. It irrigated pink color. The anesthetic was reversed. He was then transferred to a [facility] bed and wheeled to PACU in stable condition. Urinary Catheter Management Urinary Catheter Management 3-way Urethral: Cath placed during this visit: no
[2025-09-12] MEDS: SOLIFENACIN SUCCINATE 10 MG TABLET PO (11:43)
[2025-09-12] MEDS: 0.9 % SODIUM CHLORIDE 1,000 ML 80 ML IV (11:51)
[2025-09-12] MEDS: SODIUM CHLORIDE IRRIG SOLUTION 3,000 ML 3000 ML IRR ×12 (13:00→23:57)
[2025-09-12] MEDS: TRAMADOL HCL 50 MG TABLET PO (13:18)
[2025-09-12] MEDS: GABAPENTIN 100 MG CAPSULE PO ×2 (13:18→21:16)
[2025-09-12] MEDS: LIDOCAINE 2% JELLY 10 ML UR (15:56)
--- NOTE | 2025-09-12 15:57 | SUR.HOLD ---
(6373) #24 coude catheter placed as ordered using sterile technique. Small amount of resistance met with insertion. Return of pink tinged urine noted. CBI infusing without difficulty. Patient tolerated procedure well.
[2025-09-12] MEDS: POTASSIUM BICARBONATE/CIT 25 MEQ TABLET EFF PO (21:15)
[2025-09-12] MEDS: HYDROXYCHLOROQUINE SULFATE 200 MG TABLET PO (21:16)
[2025-09-12] MEDS: PRIMIDONE 50 MG TABLET PO (21:16)
[2025-09-12] MEDS: FOLIC ACID 1 MG TABLET PO (21:16)
[2025-09-12] MEDS: TAMSULOSIN HCL 0.4 MG CAPSULE PO (21:16)
[2025-09-12] MEDS: TEMAZEPAM 15 MG CAPSULE PO (21:22)
[2025-09-12] MEDS: ACETAMINOPHEN 500 MG TABLET 1000 MG PO (22:55)
[2025-09-13] MEDS: 0.9 % SODIUM CHLORIDE 1,000 ML 80 ML IV (00:03)
[2025-09-13] MEDS: TRAMADOL HCL 50 MG TABLET PO (01:21)
[2025-09-13] MEDS: SODIUM CHLORIDE IRRIG SOLUTION 3,000 ML 3000 ML IRR ×2 (01:23→03:35)
[2025-09-13 04:09] VITALS: BP 155/77; PULSE 72; TEMP 36.5; O2SAT 93
[2025-09-13] MEDS: GABAPENTIN 100 MG CAPSULE PO (05:13)
[2025-09-13 07:34] VITALS: BP 113/76; PULSE 86; TEMP 36.8; O2SAT 94
[2025-09-13] MEDS: PRIMIDONE 50 MG TABLET PO (09:43)
[2025-09-13] MEDS: TAMSULOSIN HCL 0.4 MG CAPSULE PO (09:44)
[2025-09-13] MEDS: SOLIFENACIN SUCCINATE 10 MG TABLET PO (09:44)
[2025-09-13] MEDS: HYDROXYCHLOROQUINE SULFATE 200 MG TABLET PO (09:44)
[2025-09-13] MEDS: DUTASTERIDE 0.5 MG CAPSULE PO (09:44)
[2025-09-13] MEDS: FOLIC ACID 1 MG TABLET PO (09:44)
[2025-09-13] MEDS: MONTELUKAST SODIUM 10 MG TABLET PO (09:45)
[2025-09-13] MEDS: LISINOPRIL/HYDROCHLOROTHIAZIDE 20-12.5 MG TABLET 1 TAB PO (09:45)
[2025-09-13] MEDS: POTASSIUM BICARBONATE/CIT 25 MEQ TABLET EFF PO (10:29)
[2025-09-13] MEDS: BUDESONIDE FORMOTEROL 2 EACH IH (10:31)
== END 2025-09-13 12:10 | disposition home or self-care (01) ==
LOC: SURGOUT 11:30 → MS 12:01
PROVIDERS: PCP Family Medicine; Visit Provider Urology
PROC: (CPT 52601; principal; 2025-09-12 10:00)
DX: N40.1 Benign prostatic hyperplasia with lower urinary tract symptoms (principal); M19.90 Unspecified osteoarthritis, unspecified site; E78.5 Hyperlipidemia, unspecified; M81.0 Age-related osteoporosis without current pathological fracture; M06.9 Rheumatoid arthritis, unspecified; I10 Essential (primary) hypertension; Z79.01 Long term (current) use of anticoagulants; Z85.840 Personal history of malignant neoplasm of eye; Z87.891 Personal history of nicotine dependence; K21.9 Gastro-esophageal reflux disease without esophagitis; K44.9 Diaphragmatic hernia without obstruction or gangrene; Z87.442 Personal history of urinary calculi
CPT/HCPCS: 52601; 36415; 88305; J1100; J2250; J2405; J2704; J3010